=== PATIENT | female | born 1940 | race Hispanic/Latino ===

== ENCOUNTER 2018-07-29 12:37 | Inpatient (IN) | payer OTHER ==
--- OUTSIDE RECORDS SUMMARY | 2018-07-29 12:40 | XMS REPORT ---
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 Problem 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 Active classified elsewhere Problem Type 2 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 Problem Cervical stenosis of spine M48.02 Active Problem Cervical stenosis (uterine cervix) N88.2 Active Problem History of coronary artery stent Z95.5 Active placement Problem Mixed hyperlipidemia E78.2 Active Problem Other osteoporosis M81.8 Active Problem At risk for falling Z91.81 Active Problem Primary hypersomnia F51.11 Active Problem Atherosclerosis of [place] coronary I25.10 Active artery Problem Chronic kidney disease (CKD), stage N18.4 Active IV (severe) Problem H/O stroke without residual Z86.73 Active deficits Medications No Known Medications Results No Known Results Summary Purpose [facility] Submission
--- OUTSIDE RECORDS SUMMARY | 2018-07-29 12:40 | XMS REPORT ---
:1940 Author Organization eClinicalWorks Care Team Providers Name Role Phone Orlando John Provider Role Unavailable Allergies, Adverse Reactions, Alerts Substance Reaction Event Type Levaquin Info Not Available Drug Allergy Benadryl Info Not Available Drug Allergy ALL PAIN NARCOTICS Swelling of throat, hands Non Drug Allergy CONTRAST DYE Info Not Available Non Drug Allergy Problems Problem Type Condition Code Onset Dates Condition Status Assessment Cervical stenosis of spine M48.02 Active Assessment Other osteoporosis M81.8 Active Assessment History of coronary artery stent Z95.5 Active placement Assessment Atherosclerosis of [place] coronary I25.10 Active artery Assessment At risk for falling Z91.81 Active Problem Proteinuria, unspecified R80.9 Active Assessment Mixed hyperlipidemia E78.2 Active Problem H/O stroke without residual deficits Z86.73 Active Assessment Proteinuria, unspecified R80.9 Active Problem Chronic kidney disease (CKD), stage N18.4 Active IV (severe) Problem At risk for falling Z91.81 Active Problem Other osteoporosis M81.8 Active Problem jail current 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 Z79.4 Active Problem Type 2 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 Assessment jail current 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 Z79.4 Active Assessment Hypertensive heart disease without I11.9 Active heart failure Problem Cervical stenosis of spine M48.02 Active Assessment 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 classified I43 Active elsewhere Problem 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 classified I43 Active elsewhere Problem Atherosclerosis of [place] coronary I25.10 Active artery Problem Hypertensive heart disease without I11.9 Active heart failure Problem Chronic kidney disease, stage 4 N18.4 Active (severe) Assessment Type 2 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 Assessment Chronic kidney disease, stage 4 N18.4 Active (severe) Assessment Medicare annual wellness visit, Z00.00 Active initial Problem Cervical stenosis (uterine cervix) N88.2 Active Problem History of coronary artery stent Z95.5 Active placement Problem Mixed hyperlipidemia E78.2 Active Problem Primary hypersomnia F51.11 Active Medications Medication Code Code Instructions Start End Status Dosage System Date Date Metoprolol [facility] 29704205459 100 MG Orally Active 1 tablet Succinate ER Twice a day Tradjenta [facility] 74088767778 5 MG Orally Active 1 tablet Once a day Simvastatin [facility] 06307530864 40 MG Orally Active 1/2 tablet Once a day in the evening Furosemide [facility] 68937207030 40 MG Orally Active 1 tablet Once a day Clopidogrel [facility] 75789838239 75 MG Orally Active 1 tablet Bisulfate Once a day Tresiba FlexTouch [facility] 20856058128 200 UNIT/ML Active 10 units Subcutaneous daily Cranberry Extract [facility] [address] Active not defined Lactobacillus [facility] 0 Active not defined Norvasc [facility] 49116924573 10 MG Orally Active 1 tablet Once a day Results No Known Results Summary Purpose eClinicalWorks Submission
--- OUTSIDE RECORDS SUMMARY | 2018-07-29 12:40 | XMS REPORT ---
:1940 Author Organization eClinicalWorks Care Team Providers Name Role Phone Orlando John Provider Role Unavailable Allergies No Known Allergies Problems Problem Type Condition Code Onset Dates Condition Status Assessment Cervical stenosis of spine M48.02 Active Assessment Other osteoporosis M81.8 Active Assessment History of coronary artery stent Z95.5 Active placement Problem Proteinuria, unspecified R80.9 Active Assessment Atherosclerosis of [place] coronary I25.10 Active artery Problem H/O stroke without residual deficits Z86.73 Active Assessment At risk for falling Z91.81 Active Problem Chronic kidney disease (CKD), stage N18.4 Active IV (severe) Problem At risk for falling Z91.81 Active Problem Other osteoporosis M81.8 Active Problem half-way current 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 Z79.4 Active Problem Type 2 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 Assessment 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 classified I43 Active elsewhere Assessment Proteinuria, unspecified R80.9 Active Problem Cervical stenosis of spine M48.02 Active Assessment Mixed hyperlipidemia E78.2 Active Problem 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 classified I43 Active elsewhere Problem Atherosclerosis of [place] coronary I25.10 Active artery Problem Hypertensive heart disease without I11.9 Active heart failure Problem Chronic kidney disease, stage 4 N18.4 Active (severe) Assessment Chronic kidney disease, stage 4 N18.4 Active (severe) Assessment Type 2 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 Assessment Hypertensive heart disease without I11.9 Active heart failure Assessment 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 Problem Cervical stenosis (uterine cervix) N88.2 Active Problem History of coronary artery stent Z95.5 Active placement Problem Mixed hyperlipidemia E78.2 Active Problem Primary hypersomnia F51.11 Active Medications Medication Code Code Instructions Start End Status Dosage System Date Date Furosemide ND 37803694081 40 MG Orally Active 1 tablet Once a day Norvasc ND 10055189409 10 MG Orally Active 1 tablet Once a day Simvastatin ND 11413319269 40 MG Orally Active 1/2 tablet Once a day in the evening Metoprolol ND 52449371871 100 MG Orally Active 1 tablet Succinate ER Twice a day Cranberry Extract [facility] [address] Active not defined Tresiba FlexTouch [facility] 42944294516 200 UNIT/ML Active 10 units Subcutaneous daily Tradjenta [facility] 08687255137 5 MG Orally July 03, Active 1 tablet Once a day [address] [facility] 25495508264 75 MG Orally Active 1 tablet Bisulfate Once a day Lactobacillus [facility] 0 Active not defined Results No Known Results Summary Purpose eClinicalWorks Submission
--- OUTSIDE RECORDS SUMMARY | 2018-07-29 12:40 | XMS REPORT ---
:1940 [facility] Address [address] [place] [address] [address] [place] [address] Care Team Providers Name Role Phone Unavailable Unavailable Unavailable Payers Payer Name Policy Type Policy Number Effective Date Expiration Date Problems This patient has no known problems. Allergies, Adverse Reactions, Alerts Allergy Allergy Status Severity Reaction(s) Onset Inactive Treating Comments Name Type Date Date Clinician iodine DA Active SV 2018-07 00:00:0 0 morphine DA Active SV 2018-07 00:00:0 0 Medications This patient has no known medications. Results Test Description Test Time Test Comments Text Results Atomic Results Result Comments TROPONIN-I 2018-07-28 19:45:00 Test Item Value Reference Range Comments TROPONIN-I (test 0.18 ng/mL 0.00-0.05 RESULTS CALLED TO SOLITARIO SCHUMACHER AT 4335 code=TROPI) 07/28/18.Saji Malloy VALUE READ BACK BY NURSE AND VERIFIED BY TECH? Y<0.05 Normal0.06 - 0.39 Consistent with circulating Troponin with possible Myocardial injury.>0.40 Consistent with Myocardial injury extensive enough to conform with AMI as defined by WHO. COMPREHENSIVE METABOLIC [id number] 16:08:00 Test Item Value Reference Range Comments SODIUM (test code=NA) 139 mmol/L 136-145 POTASSIUM (test code=K) 4.3 mmol/L 3.5-5.1 CHLORIDE (test code=CL) 106 mmol/L 98-107 CARBON DIOXIDE (test 28 mmol/L 21-32 code=CO2) GLUCOSE (test code=GLU) 255 mg/dL 65-99 BLOOD UREA NITROGEN (test 47 mg/dL 7-18 code=BUN) GLOMERULAR FILTRATION RATE 20 Reporting units: (test code=GFR) ml/min/1.73m\S\2 (Modified MDRD Formula)If age < 18 years, GFR is not applicable. KD/DOQI Clinical Practice Guidelines: Stage 1: Kidney damage w/normal or increased GFR >90Stage 2: Kidney damage w/mild decrease in GFR 60 - 89Stage 3: Moderate decrease in GFR 30 - 59Stage 4: Severe decrease in GFR 15 - 29Stage 5: Kidney failure < 15 (or dialysis) CREATININE (test code=CREAT) 2.5 mg/dL 0.6-1.0 TOTAL PROTEIN (test 7.6 g/dL 6.4-8.2 code=PROT) ALBUMIN (test code=ALB) 3.9 g/dL 3.4-5.0 GLOBULIN (test code=GLOB) 3.7 gm/dL 2.3-3.5 ALBUMIN/GLOBULIN RATIO (test 1.1 1.5-2.2 code=A/G) CALCIUM (test code=CA) 9.7 mg/dL 7.8-10.9 BILIRUBIN TOTAL (test 0.3 mg/dL 0.0-1.1 code=BILT) SGOT/AST (test code=AST) 19 U/L 15-37 Reporting units: International Units/L SGPT/ALT (test code=ALT) 18 U/L 10-30 Reporting units: International Units/L ALKALINE PHOSPHATASE TOTAL 119 U/L 45-117 (test code=ALKP) - XR CHEST 1 [id number] 15:43:00 FAX: Rhett oJ [phone] Camps: ER St: REG Name: [facility]- Emergency Services : 1940 Age/S: 78/F [address] Unit #: [id number] Loc: VR.DIMAS [place], [place] [address] Phys: Rhett Sams MD Acct: [id number] Dis Date: Status: REG ER PHONE #: [phone] Exam Date: 07/28/2018 1527 FAX #: [phone] Reason: CP EXAMS: CPT CODE: [id number] XR CHEST 1 V 46636 Examination: Chest 1 view Location code: S17 Comparison: None Discussion: Clinical history is remarkable for chest tightness. Cardiac silhouette is slightly enlarged, atherosclerotic change present. There are coarsened interstitial changes present bilaterally, mild bilateral parenchymal basilar scarring noted. Impression: 1. Coarsened interstitial changes with likely bilateral basilar parenchymal scarring. Electronically Signed by TONIA BUNN M.D. on 09/2018 at 9867 Reported and signed by: YUAN BUNN M.D. CC: Rhett Sams MDTechnologist: HESHAM FONG RT,(R) ARRT Transcribed Date/Time/By: 07/28/2018 (7496) : [email or web address] Orig Print D/T: S: 07/28/2018 (6598) Automated exposure control, iterative reconstruction technique, and/ oradjustment of mA and/or kV according to patient's size was utilizedfor optimum radiation dose reduction. PAGE 1 Signed ReportTROPONIN I [id number] 15:37:00 Test Item Value Reference Range Comments TROPONIN I RAPID (test 0.03 NG/ML 0.00-0.08 0.00 - 0.08 Normal0.09 - code=TROPIRAP) 0.40 Indeterminate for AMI 0.41 and above Compatible with AMI CHEMISTRY 8 [id number] 15:36:00 Test Item Value Reference Range Comments IONIZED CALCIUM (test code=CAIABG) 1.19 mmol/L 1.13-1.32 ISTAT-TCO2 VENOUS (test code=TCO2VP) 26 MMOL/L 24-30 ISTAT-HEMOGLOBIN (test code=HBP) 13.9 G/DL 12.0-16.0 ISTAT-HEMATOCRIT (test code=HCTP) 41 % 44.0-56.0 ISTAT-SODIUM (test code=NAP) 140 MMOL/L 136-145 ISTAT-POTASSIUM (test code=KP) 4.4 MMOL/L 3.5-5.1 ISTAT-CHLORIDE (test code=CLP) 102 MMOL/L 98-107 ISTAT GLUCOSE (test code=GLUP) 260 MG/DL 65-99 ISTAT-BUN (test code=BUNP) 47 MG/DL 7-18 BEDSIDE CREATININE (test code=CREATBED) 2.6 MG/DL 0.6-1.0 CBC W/AUTO [id number] 15:34:00 Test Item Value Reference Range Comments WHITE BLOOD CELL (test code=WBC) 8.6 K/mm3 4.8-10.8 RED BLOOD CELL (test code=RBC) 4.37 M/mm3 4.2-5.4 HEMOGLOBIN (test code=HGB) 13.5 gm/DL 12.0-16.0 HEMATOCRIT (test code=HCT) 39.6 % 34.7-43.3 MEAN CELL VOLUME (test code=MCV) 90.6 fL 81-99 MEAN CELL HGB (test code=MCH) 30.9 pg 27-31 MEAN CELL HGB CONCETRATION (test code=MCHC) 34.1 gm/dL 33-37 RED CELL DISTRIBUTION WIDTH (test code=RDW) 12.7 % 11.5-14.5 PLATELET COUNT (test code=PLT) 217 X10(3) 130-400 MEAN PLATELET VOLUME (test code=MPV) 9.9 fL 9.4-12.4 NEUTROPHIL % (test code=NT%) 71.3 % 51.5-79.7 IMMATURE GRANULOCYTE % (test code=IG%) 0.500 % 0.108-0.322 LYMPHOCYTE % (test code=LY%) 18.1 % 14-40 MONOCYTE % (test code=MO%) 7.2 % 4.0-10.2 EOSINOPHIL % (test code=EO%) 2.3 % 0-4.1 BASOPHIL % (test code=BA%) 0.6 % 0.1-0.7 NUCLEATED RBC % (test code=NRBC%) 0 % 0-0 NEUTROPHIL # (test code=NT#) 6.1 K/mm3 2.5-8.6 IMMATURE GRANULOCYTE # (test code=IG#) 0.040 K/mm3 0.0052-0.0224 LYMPHOCYTE # (test code=LY#) 1.6 K/mm3 1.1-3.6 MONOCYTE # (test code=MO#) 0.6 K/mm3 0.3-0.9 EOSINOPHIL # (test code=EO#) 0.20 # 0.0-0.4 BASOPHIL # (test code=BA#) 0.05 K/mm3 0.0-0.2 NUCLEATED RBC # (test code=NRBC#) 0.00 K/mm3 0.00-0.20
--- OUTSIDE RECORDS SUMMARY | 2018-07-29 12:40 | XMS REPORT ---
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 Z79.4 Active Problem Type 2 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 Problem Cervical stenosis of spine M48.02 Active Problem 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 classified I43 Active elsewhere Problem Atherosclerosis of [place] coronary I25.10 Active artery Problem Hypertensive heart disease without I11.9 Active heart failure Problem Chronic kidney disease, stage 4 N18.4 Active (severe) Problem Cervical stenosis (uterine cervix) N88.2 Active Problem History of coronary artery stent Z95.5 Active placement Problem Mixed hyperlipidemia E78.2 Active Problem Proteinuria, unspecified R80.9 Active Problem Primary hypersomnia F51.11 Active Problem H/O stroke without residual deficits Z86.73 Active Medications No Known Medications Results No Known Results Summary Purpose eClinicalWorks Submission
--- OUTSIDE RECORDS SUMMARY | 2018-07-29 12:41 | XMS REPORT ---
:1940 Author Organization eClinicalWorks Care Team Providers Name Role Phone PerryMuh Provider Role Unavailable Allergies, Adverse Reactions, Alerts Substance Reaction Event Type Levaquin Info Not Available Drug Allergy Benadryl Info Not Available Drug Allergy CONTRAST DYE Info Not Available Non Drug Allergy ALL PAIN NARCOTICS Swelling of throat, hands Non Drug Allergy Problems Problem Type Condition Code Onset Dates Condition Status Assessment History of coronary artery stent Z95.5 Active placement Assessment Other osteoporosis M81.8 Active Assessment At risk for falling Z91.81 Active Assessment Atherosclerosis of [place] coronary I25.10 Active artery Assessment Mixed hyperlipidemia E78.2 Active Assessment Proteinuria, unspecified R80.9 Active Assessment 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 Active classified elsewhere Assessment Hypertensive heart disease without I11.9 Active heart failure Assessment 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 Problem Atherosclerosis of [place] coronary I25.10 Active artery Assessment Chronic kidney disease, stage 4 N18.4 Active (severe) Problem 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 Active classified elsewhere Assessment Medicare annual wellness visit, Z00.00 Active subsequent Problem longterm current 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 Z79.4 Active Problem Type 2 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 Problem Cervical stenosis of spine M48.02 Active Problem Acute pain of left knee M25.562 Active Problem Pain, joint, knee, right M25.561 Active Problem Mixed hyperlipidemia E78.2 Active Problem Adult BMI 36.0-36.9 kg/sq m Z68.36 Active Assessment Type 2 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 Problem Hypertensive heart disease without I11.9 Active heart failure Problem Chronic kidney disease, stage 4 N18.4 Active (severe) Problem Primary osteoarthritis of left knee M17.12 Active Problem 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 knee Assessment Adult BMI 36.0-36.9 kg/sq m Z68.36 Active Problem H/O stroke without residual Z86.73 Active deficits Assessment Cervical stenosis of spine M48.02 Active Problem Cervical stenosis (uterine cervix) N88.2 Active Assessment Encounter for screening mammogram Z12.31 Active for breast cancer Problem Proteinuria, unspecified R80.9 Active Assessment H/O stroke without residual Z86.73 Active deficits Problem Primary hypersomnia F51.11 Active Problem Other osteoporosis M81.8 Active Problem At risk for falling Z91.81 Active Problem History of coronary artery stent Z95.5 Active placement Problem Chronic kidney disease (CKD), stage N18.4 Active IV (severe) Medications Medication Code Code Instructions Start End Status Dosage System Date [facility] MG Orally Active 1 tablet Once a day Metoprolol [facility] 14530946822 100 MG Orally Active 1 tablet Succinate ER Twice a day Tradjenta [facility] 68198725043 5 MG Orally Active 1 tablet Once a day Simvastatin [facility] 18671640634 40 MG Orally Active 1/2 tablet in Once a day the evening Furosemide [facility] 61093024299 40 MG Orally Active 1 tablet Once a day Simvastatin [facility] 58059248861 40 MG Orally Active 1/2 tablet in Once a day the evening Clopidogrel [facility] 85540875863 75 MG Orally Active 1 tablet Bisulfate Once a day Cranberry [facility] 13018-[address]36 Active not defined Extract Lactobacillus [facility] 0 Active not defined Tradjenta [facility] 88143453076 5 MG Orally Active 1 tablet Once a day Tresiba [facility] 61079512854 200 UNIT/ML Active INJECT 10 UNITS FlexTouch SUBCUTANEOUSLY DAILY Tresiba [facility] 22589250281 200 UNIT/ML Active 10 units FlexTouch Subcutaneous daily Results No Known Results Summary Purpose eClinicalWorks Submission
--- OUTSIDE RECORDS SUMMARY | 2018-07-29 12:41 | XMS REPORT ---
:1940 Author Organization eClinicalWorks Care Team Providers Name Role Phone Orlando John Provider Role Unavailable Allergies No Known Allergies Problems Problem Type Condition Code Onset Dates Condition Status Problem 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 Active classified elsewhere Problem Cervical stenosis of spine M48.02 Active Problem prison current 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 Z79.4 Active Problem Pain, joint, knee, right M25.561 Active Problem Primary osteoarthritis of left knee M17.12 Active Problem Acute pain of left knee M25.562 Active Problem Chronic kidney disease, stage 4 N18.4 Active (severe) Problem Type 2 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 Problem 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 knee Problem Hypertensive heart disease without I11.9 Active heart failure Problem Primary hypersomnia F51.11 Active Problem H/O stroke without residual Z86.73 Active deficits Problem Mixed hyperlipidemia E78.2 Active Problem Proteinuria, unspecified R80.9 Active Problem Chronic kidney disease (CKD), stage N18.4 Active IV (severe) Problem Other osteoporosis M81.8 Active Problem Cervical stenosis (uterine cervix) N88.2 Active Problem At risk for falling Z91.81 Active Problem History of coronary artery stent Z95.5 Active placement Problem Atherosclerosis of [place] coronary I25.10 Active artery Medications No Known Medications Results No Known Results Summary Purpose eClinicalWorks Submission
--- OUTSIDE RECORDS SUMMARY | 2018-07-29 12:41 | XMS REPORT ---
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 Problem Type 2 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 Problem Cervical stenosis of spine M48.02 Active Problem Acute pain of left knee M25.562 Active Problem Mixed hyperlipidemia E78.2 Active Problem Pain, joint, knee, right M25.561 Active Assessment Urinary tract infection, site not N39.0 Active specified Problem Adult BMI 36.0-36.9 kg/sq m Z68.36 Active Problem Hypertensive heart disease without I11.9 Active heart failure Problem Chronic kidney disease, stage 4 N18.4 Active (severe) Problem Primary osteoarthritis of left knee M17.12 Active Problem 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 knee Problem H/O stroke without residual Z86.73 Active deficits Problem Cervical stenosis (uterine cervix) N88.2 Active Problem Proteinuria, unspecified R80.9 Active Problem Primary hypersomnia F51.11 Active Problem Other osteoporosis M81.8 Active Problem At risk for falling Z91.81 Active Problem History of coronary artery stent Z95.5 Active placement Problem Atherosclerosis of [place] coronary I25.10 Active artery Problem Chronic kidney disease (CKD), stage N18.4 Active IV (severe) Problem 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 Active classified elsewhere Medications Medication Code Code Instructions Start End Status Dosage System Date Date Lactobacillus NDC 0 Active not defined Furosemide ND 00144112402 40 MG Orally Active 1 tablet Once a day Bactrim DS ND 49391298222 800-160 MG Feb 21Feb Active 1 tablet Orally Twice a 2019 2018 Simvastatin ND 18172698092 40 MG Orally Active 1/2 tablet [place] [address] Active not defined Extract Norvasc [facility] 05226037841 10 MG Orally Active 1 tablet Once a day Tresiba [facility] 36185532935 200 UNIT/ML Active INJECT 10 UNITS FlexTouch SUBCUTANEOUSLY DAILY Tradjenta [facility] 19525491657 5 MG Orally Active 1 tablet Once a day Clopidogrel [facility] 25634898838 75 MG Orally Active 1 tablet Bisulfate Once a day Metoprolol [facility] 80650188278 100 MG Orally Active 1 tablet Succinate ER Twice a day Results No Known Results Summary Purpose eClinicalWorks Submission
--- OUTSIDE RECORDS SUMMARY | 2018-07-29 12:41 | XMS REPORT ---
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 Problem Pain, joint, knee, right M25.561 Active Problem Primary osteoarthritis of left knee M17.12 Active Assessment Pain, joint, knee, right M25.561 Active Assessment 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 knee Problem Acute pain of left knee M25.562 [...] IV (severe) Problem Other osteoporosis M81.8 Active Assessment Acute pain of left knee M25.562 Active Problem Cervical stenosis (uterine cervix) N88.2 Active Problem At risk for falling Z91.81 Active Assessment Primary osteoarthritis of left knee M17.12 Active Problem History of coronary artery stent Z95.5 Active placement Problem Atherosclerosis of [place] coronary I25.10 Active artery Medications Medication Code Code Instructions Start End Status Dosage System Date Date Furosemide [facility] 66541012401 40 MG Orally Active 1 tablet Once a day Tradjenta [facility] 49266562994 5 MG Orally Active 1 tablet Once a day Simvastatin ND 03623028665 40 MG Orally Active 1/2 tablet in Once a day the evening Metoprolol [facility] 37655908789 100 MG Orally Active 1 tablet Succinate ER Twice a day Norvasc [facility] 80974954132 10 MG Orally Active 1 tablet Once a day Cranberry [facility] 99916-07750 Active not defined Extract Tresiba [facility] 97730350021 200 UNIT/ML Active INJECT 10 UNITS FlexTouch SUBCUTANEOUSLY DAILY Lactobacillus [facility] 0 Active not defined Clopidogrel [facility] 95181157845 75 MG Orally Active 1 tablet Bisulfate Once a day Results No Known Results Summary Purpose [employer]ClinicalWorks Submission
--- OUTSIDE RECORDS SUMMARY | 2018-07-29 12:41 | XMS REPORT ---
:1940 Author Organization eClinicalWorks Care Team Providers Name Role Phone Orlando John Provider Role Unavailable Allergies No Known Allergies Problems Problem Type Condition Code Onset Dates Condition Status Problem 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 Active classified elsewhere Problem Cervical stenosis of spine M48.02 Active Problem detention current 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 Z79.4 Active Problem [...] stent Z95.5 Active placement Problem Atherosclerosis of [place] coronary I25.10 Active artery Medications No Known Medications Results No Known Results Summary Purpose [employer]ClinicalWorks Submission
--- OUTSIDE RECORDS SUMMARY | 2018-07-29 12:41 | XMS REPORT ---
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
--- OUTSIDE RECORDS SUMMARY | 2018-07-29 12:41 | XMS REPORT ---
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
--- OUTSIDE RECORDS SUMMARY | 2018-07-29 12:41 | XMS REPORT ---
:1940 Author Organization eClinicalWorks Care Team Providers Name Role Phone Mahoney Dell Provider Role Unavailable Allergies, Adverse Reactions, Alerts [...] Assessment Pain, joint, knee, right M25.561 Active Problem 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 knee Assessment 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 knee Assessment Primary osteoarthritis of left knee M17.12 Active Problem Pain, joint, knee, right M25.561 Active Problem long term care pharmacist current 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 Z79.4 Active Problem 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 Active Problem Atherosclerosis of [place] coronary I25.10 Active artery Problem Chronic kidney disease (CKD), stage N18.4 Active IV (severe) Problem H/O stroke without residual Z86.73 Active deficits Medications Medication Code Code Instructions Start End Status Dosage System Date Date Simvastatin [facility] 32699532352 40 MG Orally Active 1/2 tablet Once a day in the evening Tradjenta [facility] 66303653389 5 MG Orally Active 1 tablet Once a day Metoprolol [facility] 56688768502 100 MG Orally Active 1 tablet Succinate ER Twice a day Cranberry Extract [facility] [address]55-54[address] Active not defined Tresiba FlexTouch [facility] 62656681642 200 UNIT/ML Active 10 units Subcutaneous daily Norvasc [facility] 07456976835 10 MG Orally Active 1 tablet Once a day Clopidogrel [facility] 79627208002 75 MG Orally Active 1 tablet Bisulfate Once a day Furosemide [facility] 94554127069 40 MG Orally Active 1 tablet Once a day Lactobacillus [facility] 0 Active not defined Results Name Result Date Reference Range Unit Abnormality Flag X-RAY EXAM KNEE STANDING VIEW (85954) Summary Purpose eClinicalWorks Submission
--- OUTSIDE RECORDS SUMMARY | 2018-07-29 12:41 | XMS REPORT ---
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.4 Active Problem [...] stent Z95.5 Active placement Problem Atherosclerosis of [place] coronary I25.10 Active artery Medications Medication Code Code Instructions Start End Status Dosage System Date Date Metoprolol ND 38744318048 100 MG Orally Active 1 tablet Succinate ER Twice a day Simvastatin ND 58328431666 40 MG Orally Active 1/2 tablet in Once a day the evening Lactobacillus [facility] 0 Active not defined Furosemide ND 04461533998 40 MG Orally Active 1 tablet Once a day Norvasc [facility] 96180252401 10 MG Orally Active 1 tablet Once a day Tresiba [facility] 23294991687 200 UNIT/ML Active INJECT 10 UNITS FlexTouch SUBCUTANEOUSLY DAILY Tradjenta [facility] 76291180570 5 MG Orally Active 1 tablet Once a day Cranberry [facility] 16334-80290 Active not defined Extract Clopidogrel [facility] 83716622941 75 MG Orally Active 1 tablet Bisulfate Once a day Results No Known Results Summary Purpose eClinicalWorks Submission
--- OUTSIDE RECORDS SUMMARY | 2018-07-29 12:42 | XMS REPORT ---
:1940 Author Organization eClinicalWorks Care Team Providers Name Role Phone Orlando John Provider Role Unavailable Allergies No Known Allergies Problems Problem Type Condition Code Onset Dates Condition Status Problem FPC current 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 Z79.4 Active Problem Type 2 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 Problem Cervical stenosis of spine M48.02 Active Problem Acute pain of left knee M25.562 Active Problem Mixed hyperlipidemia E78.2 Active Problem Pain, joint, knee, right M25.561 Active Problem Adult BMI 36.0-36.9 kg/sq m [...] stent Z95.5 Active placement Problem Atherosclerosis of [place] coronary I25.10 Active artery Problem Chronic kidney disease (CKD), stage N18.4 Active IV (severe) Problem 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 Active classified elsewhere Medications No Known Medications Results No Known Results Summary Purpose [employer]ClinicalWorks Submission
--- OUTSIDE RECORDS SUMMARY | 2018-07-29 12:42 | XMS REPORT ---
:1940 Author Organization eClinicalWorks Care Team Providers Name Role Phone Orlando John Provider Role Unavailable Allergies No Known Allergies Problems Problem Type Condition Code Onset Dates Condition Status Problem residential current 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 Z79.4 Active Problem [...] stent Z95.5 Active placement Problem Atherosclerosis of [place] coronary I25.10 Active artery Problem Chronic kidney disease (CKD), stage N18.4 Active IV (severe) Problem 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 Active classified elsewhere Medications No Known Medications Results No Known Results Summary Purpose [employer]ClinicalWorks Submission
--- OUTSIDE RECORDS SUMMARY | 2018-07-29 12:42 | XMS REPORT ---
:1940 Author Organization eClinicalWorks Care Team Providers Name Role Phone PerryJohn Provider Role Unavailable Allergies, Adverse Reactions, Alerts Substance Reaction Event Type Levaquin Info Not Available Drug Allergy Benadryl Info Not Available Drug Allergy ALL PAIN NARCOTICS Swelling of throat, hands Non Drug Allergy CONTRAST DYE Info Not Available Non Drug Allergy Problems Problem Type Condition Code Onset Dates Condition Status Assessment Other osteoporosis M81.8 Active Assessment Cervical stenosis of spine M48.02 Active Assessment Atherosclerosis of [place] coronary I25.10 Active artery Assessment History of coronary artery stent Z95.5 Active placement Assessment At risk for falling Z91.81 Active Assessment Mixed hyperlipidemia E78.2 Active Assessment Proteinuria, unspecified R80.9 Active Assessment 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 Active classified elsewhere Assessment Hypertensive heart disease without I11.9 Active heart failure Problem Atherosclerosis of [place] coronary I25.10 Active artery Assessment long term care social worker current 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 Z79.4 Active Problem 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 Active classified elsewhere Assessment Chronic kidney disease, stage 4 N18.4 Active (severe) Problem detention current 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 Z79.4 [...] osteoarthritis of right M17.11 Active knee Assessment H/O stroke without residual Z86.73 Active deficits Problem H/O stroke without residual Z86.73 Active deficits Assessment Adult BMI 36.0-36.9 kg/sq m Z68.36 Active Problem Cervical stenosis (uterine cervix) N88.2 Active Problem Proteinuria, unspecified R80.9 Active Problem Primary hypersomnia F51.11 Active Problem Other osteoporosis M81.8 Active Problem At risk for falling Z91.81 Active Problem History of coronary artery stent Z95.5 Active placement Problem Chronic kidney disease (CKD), stage N18.4 Active IV (severe) Medications Medication Code Code Instructions Start End Status Dosage System Date Date Tradjenta [facility] 74816824054 5 MG Orally Active 1 tablet Once a day Furosemide [facility] 58338619682 40 MG Orally Active 1 tablet Once a day Norvasc [facility] 86256074041 10 MG Orally Active 1 tablet Once a day Metoprolol [facility] 58383276116 100 MG Orally Active 1 tablet Succinate ER Twice a day Tresiba [facility] 66648347875 200 UNIT/ML Active 10 units FlexTouch Subcutaneous daily Tresiba [facility] 45698269705 200 UNIT/ML Active INJECT 10 UNITS FlexTouch SUBCUTANEOUSLY DAILY Simvastatin [facility] 83712151995 40 MG Orally Active 1/2 tablet in Once a day the evening Simvastatin [facility] 66102455910 40 MG Orally Active 1/2 tablet in Once a day the evening Tradjenta [facility] 04267652140 5 MG Orally Active 1 tablet Once a day Clopidogrel [facility] 17799098035 75 MG Orally Active 1 tablet Bisulfate Once a day Lactobacillus [facility] 0 Active not defined Cranberry [facility] [address]46[address]41 Active not defined Extract Results No Known Results Summary Purpose eClinicalWorks Submission
[2018-07-29] MEDS ORDERED: ASPIRIN 81 MG CHEWABLE TABLET ONE (13:37)
[2018-07-29 13:50] LABS: Urine Blood NEGATIVE (NEG); Urine Glucose 1+ (NEG); Urine Protein 1+ (NEG); Urine pH 5.5 (5.0-7.0)
[2018-07-29 13:55] LABS: Absolute Lymphocytes (CBC) 1.6 K/uL (0.7-4.9); Absolute Monocytes 0.7 K/uL (0.1-1.3); Absolute Neutrophil 4.5 K/uL (1.8-8.0); Basophils % 0.9 % (0-1.3); Eosinophils % 2.7 % (0-4.4); Hematocrit 41.5 % (36.0-45.0); Lymphocytes % 22.8 % (15.3-44.8); MPV 8.7 fL (7.6-11.3); Monocytes % 9.5 % (3.3-12.3); Protime INR 0.96; RBC Red Blood Cell Count 4.51 M/uL (3.86-4.86)
--- NOTE | 2018-07-29 13:57 | RAD REPORT ---
EXAM DESCRIPTION: RAD - Chest Single View - 07/29/2018 1:36 pm CLINICAL HISTORY: Chest pain COMPARISON: January 2017 TECHNIQUE: AP portable chest image was obtained 1330 hours . FINDINGS: No focal mass, consolidation or failure finding. Chronic interstitial pattern is similar t o comparison. Heart and vasculature are normal. No measurable pleural effusion and no pneumothorax. N o acute bony abnormality seen. No acute aortic findings suspected. IMPRESSION: No acute cardiopulmonary process.
[2018-07-29 14:30] LABS: Albumin 3.6 g/dL (3.4-5.0); Bilirubin Direct 0.1 mg/dL (0-0.2); Bilirubin Total 0.4 mg/dL (0.2-1.0); Magnesium 2.4 mg/dL (1.8-2.4); Potassium 4.3 mmol/L (3.5-5.1); Protein, Total 6.9 g/dL (6.4-8.2)
[2018-07-29 14:32] LABS: Troponin (Emerg Dept Use Only) 0.91 ng/mL (0.0-0.045)
--- NOTE | 2018-07-29 14:41 | RAD REPORT ---
EXAM DESCRIPTION: US - Extremity Venous Uni Ltd - 07/29/2018 2:20 pm CLINICAL HISTORY: Left leg pain and swelling COMPARISON: None. TECHNIQUE: Real-time sonographic evaluation of the left lower extremity deep venous system was perfo rmed. FINDINGS: Normal compressibility, flow augmentation, phasic flow and spontaneous flow are identified in the left lower extremity common femoral, superficial femoral, popliteal and posterior tibial vein s. No intraluminal filling defects seen. A 3 centimeter x 1 centimeter popliteal fossa cyst is present. IMPRESSION: No DVT in the left lower extremity.
[2018-07-29] MEDS ORDERED: CLOPIDOGREL 75 MG TABLET ONE (15:31)
--- NOTE | 2018-07-29 15:34 | ER ---
Nurse's Notes [facility] Name: Suzan Gonzalez Age: 78 yrs Sex: Female : 1940 Arrival Date: 07/29/2018 Time: 12:42 Bed 20 Private MD: John Perry Diagnosis: Angina pectoris, unspecified;Chronic kidney disease (CKD) Presentation: 07/29 12:54 Presenting complaint: Child states: daughter reports that they were out of town for a ss and patient began to have intermittent chest pain. 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 Transition of care: patient was not received from another setting of care. Onset of symptoms was July 27, 2018. Risk Assessment: Do you want to hurt yourself or someone else? Patient reports no desire to harm self or others. Initial Sepsis Screen: Does the patient meet any 2 criteria? No. Patient's initial sepsis screen is negative. Does the patient have a suspected source of infection? No. Patient's initial sepsis screen is negative. Care prior to arrival: None. 12:54 Method Of Arrival: Ambulatory ss 12:54 Acuity: SERGIO 3 ss Historical: - Allergies: 12:58 "every pain narcotic"; ss 12:58 Bactrim; ss 12:58 Benadryl; ss 12:58 Iodine; ss 12:58 Levaquin; ss 12:58 Morphine; ss - PMHx: 12:58 angio; CHF; Diabetes - IDDM; Hypertension; Osteoporosis; POOR CIRCULATION; ss - PSHx: 12:58 neck surgery; Cholecystectomy; Hysterectomy; Heart stents; ss - Immunization history:: Adult Immunizations up to date. - Social history:: Smoking status: Patient/guardian denies using tobacco. - Ebola Screening: : Patient denies exposure to infectious person Patient denies travel to an Ebola-affected area in the 21 days before illness onset. Screenin:15 Abuse screen: Denies threats or abuse. Nutritional screening: No deficits noted. em Tuberculosis screening: No symptoms or risk factors identified. Fall Risk None identified. Assessment: 13:20 General: Appears in no apparent distress. comfortable, Behavior is calm, cooperative, em Denies fever. Pain: Complains of pain in chest Pain does not radiate. Quality of pain is described as pressure, sharp, Pain began 1 day ago. Neuro: Level of Consciousness is awake, alert, obeys commands, Oriented to person, place, time, situation. Cardiovascular: Reports chest pain, nausea, shortness of breath, Capillary refill < 3 seconds Patient's skin is warm and dry. Rhythm is sinus rhythm. Respiratory: Airway is patent Respiratory effort is even, unlabored, Respiratory pattern is regular, symmetrical, Breath sounds are clear bilaterally. GI: Patient currently denies nausea, vomiting. Derm: Skin is intact, is healthy with good turgor, Skin is pink, warm \\T\\ dry. Musculoskeletal: Capillary refill < 3 seconds, Range of motion: intact in all extremities. 14:38 Reassessment: Patient appears in no apparent distress at this time. Patient and/or em family updated on plan of care and expected duration. Pain level reassessed. Patient is alert, oriented x 3, equal unlabored respirations, skin warm/dry/pink. provider at bedside. Vital Signs: 12:58 Resp 17; Height 5 ft. 0 in. (152.40 cm); ss 13:17 BP 146 / 56; Pulse 66; Resp 12; Temp 98.4(O); Pulse Ox 99% on R/A; em 14:41 BP 153 / 63; Pulse 61; Resp 15; Pulse Ox 96% on R/A; Pain 0/10; em ED Course: 12:42 Patient arrived in ED. mr 12:42 John Perry DO is Private Physician. mr 12:57 Triage completed. ss 12:58 Arm band placed on right wrist. ss 12:59 Rob Broderick LVN is Primary Nurse. em 13:01 Norberto Macedo PA is PHCP. cp 13:01 Hipolito Phan MD is Attending Physician. cp 13:10 Placed in gown. Bed in low position. Call light in reach. Side rails up X 1. Side rails jp3 up X2. Warm blanket given. Pillow given. Verbal reassurance given. 13:10 court recording monitor on. Pulse ox on. NIBP on. jp3 13:10 Urine collected: clean catch specimen, clear, jonas colored. Patient maintains SpO2 jp3 saturation greater than 95% on room air. 13:15 EKG done, by ED staff, reviewed by Norberto SAHU. jp3 13:20 Initial lab(s) drawn, by me, sent to lab. Inserted saline lock: 20 gauge in right jp3 antecubital area, using aseptic technique. Blood collected. 13:25 Basic Metabolic Panel Sent. jp3 13:25 CBC with Diff Sent. jp3 13:25 LFT's Sent. jp3 13:25 Magnesium Sent. jp3 13:25 NT PRO-BNP Sent. jp3 13:25 PT-INR Sent. jp3 13:25 Troponin (emerg Dept Use Only) Sent. jp3 13:38 XRAY Chest (1 view) In Process Unspecified. EDMS 14:19 Ultrasound completed. Patient tolerated well. sg3 14:21 US Extremity Venous Unilateral Ltd In Process Unspecified. EDMS 15:33 Josie Perry MD is Hospitalizing Provider. cp 16:26 No provider procedures requiring assistance completed. Patient admitted, IV remains in em place. Administered Medications: 13:26 Drug: Aspirin Chewable Tablet 324 mg Route: PO; em 14:50 Follow up: Response: No adverse reaction em 14:25 Drug: PlaVIX 300 mg Route: PO; em 16:31 Follow up: Response: No adverse reaction em Outcome: 15:34 Decision to Hospitalize by Provider. cp 16:26 Admitted to Tele accompanied by tech, family with patient, via stretcher, room 430, em with chart, Report called to SOLITARIO Garber 16:26 Condition: stable 16:26 Instructed on the need for admit, Demonstrated understanding of instructions. 16:31 Patient left the ED. em Signatures: Dispatcher [employer] EDVT Eileen Mayoz, Rob, MAGNAFLUX OPERATOR MAGNAFLUX OPERATOR em Hodan Segovia, Norberto Roman RN, PA PA cp Beatrice Villeda sg3 Rambo Lopez jp3
--- NOTE | 2018-07-29 15:34 | EDPHYS ---
Physician Documentation [facility] Name: Suzan Gonzalez Age: 78 yrs Sex: Female : 1940 Arrival Date: 07/29/2018 Time: 12:42 Bed 20 Private MD: John Perry ED Physician Hipolito Phan HPI: 07/29 13:10 This 78 yrs old Female presents to ER via Ambulatory with complaints of Chest cp Pain. 13:10 The patient or guardian reports chest pain that is located primarily in the anterior cp chest wall. 13:10 Onset: 2 day(s) ago. The pain radiates to left neck. Associated signs and symptoms: cp Pertinent positives: lower extremity pain, recent travel, Pertinent negatives: abdominal pain, cough, lower extremity swelling, shortness of breath, syncope. Duration: The patient or guardian reports multiple episodes, that are intermittent, with no pattern. Severity of pain: in the emergency department the pain has resolved and did so earlier today. Patient reports she was out of town yesterday and was seen at [facility] after complaining of chest pain. Daughter reports patient had elevated troponin level of 0.8 and was told patient needed cardiac cath. Patient left AM and returned home to [place]. 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 Historical: - Allergies: 12:58 "every pain narcotic"; ss 12:58 Bactrim; ss 12:58 Benadryl; ss 12:58 Iodine; ss 12:58 Levaquin; ss 12:58 Morphine; ss - PMHx: 12:58 angio; CHF; Diabetes - IDDM; Hypertension; Osteoporosis; POOR CIRCULATION; ss - PSHx: 12:58 neck surgery; Cholecystectomy; Hysterectomy; Heart stents; ss - Immunization history:: Adult Immunizations up to date. - Social history:: Smoking status: Patient/guardian denies using tobacco. - Ebola Screening: : Patient denies exposure to infectious person Patient denies travel to an Ebola-affected area in the 21 days before illness onset. ROS: 13:10 Constitutional: Negative for body aches, chills, fever, poor PO intake. cp 13:10 Eyes: Negative for injury, pain, redness, and discharge. cp 13:10 ENT: Negative for drainage from ear(s), ear pain, sore throat, difficulty swallowing, difficulty handling secretions. 13:10 Neck: Negative for pain with movement, pain at rest, stiffness. 13:10 Cardiovascular: Positive for chest pain, Negative for edema, palpitations. 13:10 Respiratory: Negative for cough, shortness of breath, wheezing. 13:10 Abdomen/GI: Negative for abdominal pain, nausea, vomiting, and diarrhea, black/tarry stool, rectal bleeding. 13:10 Back: Negative for pain at rest, pain with movement. 13:10 MS/extremity: Negative for injury or acute deformity, decreased range of motion. 13:10 Skin: Negative for cellulitis, rash. 13:10 Neuro: Negative for altered mental status, headache, numbness, syncope, weakness. 13:10 All other systems are negative. Exam: 13:10 ECG was reviewed by the Attending Physician. cp 13:18 Constitutional: The patient appears in no acute distress, alert, awake, comfortable, cp non-diaphoretic, non-toxic, well developed, well nourished. 13:18 Head/Face: Normocephalic, atraumatic. Eyes: Pupils equal round and reactive to light, cp extra-ocular motions intact. Lids and lashes normal. Conjunctiva and sclera are non-icteric and not injected. Cornea within normal limits. Periorbital areas with no swelling, redness, or edema. ENT: Nares patent. No nasal discharge, no septal abnormalities noted. Tympanic membranes are normal and external auditory canals are clear. Oropharynx with no redness, swelling, or masses, exudates, or evidence of obstruction, uvula midline. Mucous membranes moist. Neck: Trachea midline, no thyromegaly or masses palpated, and no cervical lymphadenopathy. Supple, full range of motion without nuchal rigidity, or vertebral point tenderness. No Meningismus. Chest/axilla: Normal chest wall appearance and motion. Nontender with no deformity. No lesions are appreciated. 13:18 Cardiovascular: Rate: normal, Rhythm: regular, Edema: is not appreciated, JVD: is not appreciated. 13:18 Respiratory: the patient does not display signs of respiratory distress, Respirations: normal, no use of accessory muscles, no retractions, no splinting, no tachypnea, labored breathing, is not present, Breath sounds: are clear throughout, no decreased breath sounds, no stridor, no wheezing. 13:18 Abdomen/GI: Inspection: abdomen appears normal, Bowel sounds: active, all quadrants, Palpation: abdomen is soft and non-tender, in all quadrants. 13:18 Back: pain, is absent, ROM is normal. 13:18 Musculoskeletal/extremity: Pulses: weak bilateral dorsalis pedis, Calf tenderness, of the left lower extremeity, Sensation intact. 13:18 Neuro: Orientation: to person, place \\T\\ time. Mentation: is normal, Cerebellar function: is grossly normal, Motor: moves all fours, strength is normal, Sensation: is normal. Vital Signs: 12:58 Resp 17; Height 5 ft. 0 in. (152.40 cm); ss 13:17 BP 146 / 56; Pulse 66; Resp 12; Temp 98.4(O); Pulse Ox 99% on R/A; em 14:41 BP 153 / 63; Pulse 61; Resp 15; Pulse Ox 96% on R/A; Pain 0/10; em MDM: 13:10 Patient medically screened. cp 13:20 Differential diagnosis: acute myocardial infarction, acute pericarditis, cholecystitis, cp Cholelithiasis costochondritis, pericarditis, pulmonary embolus, stable angina, unstable angina. 14:50 The patient was given aspirin in the Emergency Department. cp 15:07 Data reviewed: vital signs, nurses notes, lab test result(s), EKG, radiologic studies, cp plain films, ultrasound. Test interpretation: by ED physician or midlevel provider: ECG, plain radiologic studies. Counseling: I had a detailed discussion with the patient and/or guardian regarding: the historical points, exam findings, and any diagnostic results supporting the discharge/admit diagnosis, the presence of at least one elevated blood pressure reading (>120/80) during this emergency department visit, lab results, radiology results. Physician consultation: Josie Perry MD was called at 15:08, was contacted at 15:08, regarding admission, to the telemetry unit. 07/29 13: Order name: Basic Metabolic Panel cp 07/29 13: Order name: CBC with Diff cp 07/29 13: Order name: LFT's cp 07/29 13: Order name: Magnesium; Complete Time: 14:39 cp 07/29 13: Order name: NT PRO-BNP; Complete Time: 14:39 cp 07/29 13:09 Order name: PT-INR; Complete Time: 14:39 cp 07/29 13:09 Order name: Troponin (emerg Dept Use Only); Complete Time: 14:39 cp 07/29 13:10 Order name: Basic Metabolic Panel; Complete Time: 14:39 EDMS 07/29 13:10 Order name: CBC with Automated Diff; Complete Time: 14:39 EDMS 07/29 13:10 Order name: Liver (Hepatic) Function; Complete Time: 14:39 EDMS 07/29 13:35 Order name: Urine Dipstick--Ancillary (enter results); Complete Time: 14:39 ag 07/29 15:16 Order name: Troponin I EDNM 07/29 15:16 Order name: Troponin I EDNM 07/29 15:16 Order name: Troponin I EDNM 07/29 13:09 Order name: XRAY Chest (1 view); Complete Time: 14:39 cp 07/29 13:09 Order name: EKG; Complete Time: 13:11 cp 07/29 13:09 Order name: Cardiac monitoring; Complete Time: 13:25 cp 07/29 13:09 Order name: EKG - Nurse/Tech; Complete Time: 13:16 cp 07/29 13:09 Order name: IV Saline Lock; Complete Time: 13:25 cp 07/29 13:09 Order name: Labs collected and sent; Complete Time: 13:25 cp 07/29 13:09 Order name: O2 Per Protocol; Complete Time: 13:16 cp 07/29 13:09 Order name: O2 Sat Monitoring; Complete Time: 13:16 cp 07/29 13:16 Order name: US Extremity Venous Unilateral Ltd; Complete Time: 14:44 cp 07/29 14:44 Interpretation: Report reviewed. 07/29 13:34 Order name: Labs - recollect needed; Complete Time: 13:57 ag 07/29 15:15 Order name: CONS Physician Consult EDNM 07/29 15:15 Order name: Heart Healthy EDNM 07/29 15:16 Order name: Troponin I EDNM EC:10 Rate is 67 beats/min. Rhythm is regular. IA interval is normal. QRS interval is normal. cp QT interval is normal. Interpreted by me. Reviewed by me. Administered Medications: 13:26 Drug: Aspirin Chewable Tablet 324 mg Route: PO; em 14:50 Follow up: Response: No adverse reaction em 14:25 Drug: PlaVIX 300 mg Route: PO; em 16:31 Follow up: Response: No adverse reaction em Disposition: 18:34 Co-signature as Attending Physician, Hipolito Phan MD. rn Disposition: 07/29/18 15:34 Hospitalization ordered by Josie Perry for Observation. Preliminary diagnosis are Angina pectoris, unspecified, Chronic kidney disease (CKD). - Bed requested for Telemetry/MedSurg (observation). - Status is Observation. em - Condition is Stable. - Problem is new. - Symptoms have improved. UTI on Admission? No Signatures: Dispatcher [employer] EDLisa Mcmullen RN RN dw Davie, Rob, HEALTH CAREERS INSTRUCTOR HEALTH CAREERS INSTRUCTOR em Hipolito Phan MD MD rn Smirch, Shelby, RN RN Lindsay Benoit Corey, PA PA cp Corrections: (The following items were deleted from the chart) 15:47 15:34 Hospitalization Ordered by Josie Perry MD for Observation. Preliminary dw diagnosis is Angina pectoris, unspecified; Chronic kidney disease (CKD). Bed requested for Telemetry/MedSurg (observation). Status is Observation. Condition is Stable. Problem is new. Symptoms have improved. UTI on Admission? No. cp 16:31 15:47 07/29/2018 15:34 Hospitalization Ordered by Josie Perry MD for Observation. em Preliminary diagnosis is Angina pectoris, unspecified; Chronic kidney disease (CKD). Bed requested for Telemetry/MedSurg (observation). Status is Observation. Condition is Stable. Problem is new. Symptoms have improved. UTI on Admission? No. dw
--- NOTE | 2018-07-29 16:27 | P.HP ---
Certification for Inpatient Patient admitted to: Observation With expected LOS: <2 Midnights Patient will require the following post-hospital care: None Practitioner: I am a practitioner with admitting privileges, knowledge of patient current condition, hospital course, and medical plan of care. Services: Services provided to patient in accordance with Admission requirements found in Title 42 Section 412.3 of the Code of Federal Regulations Patient History Date of Service: 07/29/18 Primary Care Provider: Dr Perry Reason for admission: Elevated Troponin and SOB History of Present Illness: This is a 70-year-old female with significant past medical history of CAD, [place], hypertension, hyperlipidemia, diabetes, congestive heart failure, who presented to the ED with complaints of intermittent chest pain. Patient stated that she has been having intermittent chest pain for over 2 weeks now recently was traveling to . [place] noticed that she was having some chest pain and it was different than all her other times. Initially she thought it was indigestion however when it started radiating to her neck and had jaw walk along with chills she decided to go to the ER there. Patient was seen at [facility] [place] [place] and was recommended to be admitted to the hospital and have a heart catheterization done at that time. Patient however left the hospital AMA as she wanted to come here to the hospital to see Dr. Dunaway. When she came to the hospital here in the ER patient's chest pain had resolved. However patient lab work and imaging were done due to concern for acute coronary syndrome given her extensive history. Patient initially had elevated troponin and BNP along with creatinine in the ER thus was referred over for admission Allergies iodine [Iodine] Allergy (Severe, Verified 10/03/16 15:46) throat swelling diphenhydramine HCl [From Benadryl] Allergy (Verified 12/08/16 09:34) Anaphylaxis hydralazine Allergy (Verified 10/03/16 15:46) dizziness, hot flashes morphine Allergy (Verified 10/03/16 15:46) Unknown Sulfa (Sulfonamide Antibiotics) Allergy (Verified 10/03/16 15:46) Unknown sulfamethoxazole [From Bactrim] Allergy (Verified 10/03/16 15:46) Anaphylaxis trimethoprim [From Bactrim] Allergy (Verified 10/03/16 15:46) Anaphylaxis levofloxacin [From Levaquin] Adverse Reaction (Severe, Verified 10/03/16 15:46) vomiting Narcotics Allergy (Severe, Uncoded 12/08/16 09:34) Anaphylaxis Home Medications: Clopidogrel Bisulfate [Plavix*] 75 mg PO DAILY 11/29/13 Metoprolol Tartrate [Lopressor] 100 mg PO DAILY 05/15/14 Amlodipine Besylate [Norvasc] 10 mg PO DAILY #30 tablet 06/22/16 Lactobacillus Combo No.13 [Probiotic Pearls Complete] 1 cap PO DAILY 06/29/16 Atorvastatin Calcium [Lipitor*] 20 mg PO BEDTIME 02/15/17 Cholecalciferol (Vitamin D3) [Vitamin D3] 5,000 unit PO BID 02/15/17 Insulin Degludec [Tresiba Flextouch U-200] 40 units SQ BREAKFAST 02/15/17 Benzonatate [Tessalon Perle] 200 mg PO TID PRN #20 cap 02/18/17 Furosemide [Lasix] 20 mg PO DAILY #30 tab 02/18/17 Potassium Chloride 10 meq PO DAILY #30 tab.er.prt 02/18/17 - Past Medical/Surgical History Diabetic: Yes -: Diabetes mellitus type 2 -: Hypertension -: Chronic renal disease -: Broken tani shoulders, toes tani feet, L elbow hx -: Cataract -: History DVT to the left lower extremity -: Hyperlipidemia -: CAD with multiple stents -: Peripheral vascular disease -: Carotid arterial disease -: History of osteomyelitis -: Severe cervical spine disease -: Cardiac Cath with 3 stents -: 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 She has 6 children - Family History Father -: GI disease, Cancer Mother -: GI disease, Stroke, Other (see notes) Notes: brain tumor Brother -: Heart disease, Hypertension, Diabetes, Kidney disease Sister -: Heart disease, Hypertension, GI disease - Social History Alcohol use: No CD- Drugs: No Caffeine use: Yes Review of Systems 10-point ROS is otherwise unremarkable Physical Examination - Physical Exam General: Alert, Mild distress Neck: JVD distended Respiratory: Normal air movement, Crackles/rales Cardiovascular: Regular rate/rhythm, Normal S1 S2, Edema Gastrointestinal: Normal bowel sounds, No tenderness Musculoskeletal: No tenderness, Swelling Integumentary: No rashes Neurological: Normal gait, Normal speech, Normal strength at 5/5 x4 extr, Normal tone, Normal affect Lymphatics: No axilla or inguinal lymphadenopathy - Studies Laboratory Data (last 24 hrs) 07/29/18 13:45: PT 11.3, INR 0.96 07/29/18 13:45: WBC 7.1, Hgb 13.5, Hct 41.5, Plt Count 229 07/29/18 13:45: Sodium 141, Potassium 4.3, BUN 52 H, Creatinine 2.43 H, Glucose 263 H, Magnesium 2.4, Total Bilirubin 0.4, AST 17, ALT 14, Alkaline Phosphatase 84 Assessment and Plan - Problems (Diagnosis) (1) CHF exacerbation Onset Date: 02/16/17 Current Visit: No Status: Acute Plan: acute CHF exacerbation most likely 2.2 to recent travel, poor Fluid restriction and diet -Pt also with Elevated Troponin most likely 2.2 to CHF and decreased ability to be cleared from Kidney due to ARF -Pt with BL 3+ Leg swelling, Orthopena and Crackles on PE -IV lasix 40mg BID -Fluids restriction and NA restriction -Cardiology consulted. Awaiting Reccs Qualifiers: Heart failure type: systolic Qualified Code(s): I50.23 - Acute on chronic systolic (congestive) heart failure (2) Chest pain Onset Date: 12/08/16 Current Visit: No Status: Resolved Plan: Atypical Chest Pain most likely stable angina -Pt with Extensive H/o CAD with Several stent placement and recent heart Cath with Cardiology -Chest pain resolved now -Cardiology Consulted. Awaiting reccs -Restart ACS meds here in the hospital -Repeat Troponix x 2 Qualifiers: Chest pain type: unspecified Qualified Code(s): R07.9 - Chest pain, unspecified (3) CAD (coronary artery disease) Onset Date: 05/16/14 Current Visit: No Status: Chronic Plan: See # 2 Qualifiers: Coronary Disease-Associated Artery/Lesion type: red devil artery [place] vs. transplanted heart: red devil heart Associated angina: with stable angina Qualified Code(s): I25.118 - Atherosclerotic heart disease of red devil coronary artery with other forms of angina pectoris (4) CKD (chronic kidney disease) Onset Date: 05/16/14 Current Visit: No Status: Chronic Plan: pt with CKD now with Acute kidney failure most likely 2.2 to CHF exacerbation -IV lasix for now -Monitor BUN.CR for now as well -If no improvement will get Dr Whitman to see the patient Qualifiers: Chronic kidney disease stage: stage 3 (moderate) Qualified Code(s): N18.3 - Chronic kidney disease, stage 3 (moderate) (5) Diabetes mellitus Onset Date: 07/31/14 Current Visit: No Status: Chronic Plan: ISS and accuchecks -BS currently elevated -Will monitor Qualifiers: Diabetes mellitus type: type 2 Diabetes mellitus detention insulin use: with detention use Diabetes mellitus complication status: with kidney complications Diabetes mellitus complication detail: with chronic kidney disease Chronic kidney disease stage: stage 3 (moderate) Qualified Code(s): E11.22 - Type 2 diabetes mellitus with diabetic chronic kidney disease; N18.3 - Chronic kidney disease, stage 3 (moderate); 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 (6) Hyperlipidemia Onset Date: 12/08/16 Current Visit: No Status: Chronic Qualifiers: Hyperlipidemia type: mixed hyperlipidemia Qualified Code(s): E78.2 - Mixed hyperlipidemia (7) Hypertension Onset Date: 12/08/16 Current Visit: No Status: Chronic Qualifiers: Hypertension type: essential hypertension Qualified Code(s): I10 - Essential (primary) hypertension (8) Obesity Current Visit: No Status: Chronic Qualifiers: Obesity type: due to excess calories Obesity classification: adult class 1 (BMI 30 - 34.9) Serious obesity comorbidity presence: with serious comorbidity Body mass index: BMI 31.0-31.9 Qualified Code(s): E66.09 - Other obesity due to excess calories; Z68.31 - Body mass index (BMI) 31.0-31.9, adult (9) PVD (peripheral vascular disease) Onset Date: 06/30/16 Current Visit: No Status: Chronic - Plan Admit pt to med surg for CHF exacerbation and ARF. Discharge Plan: Home Plan to discharge in: 48 Hours - Advance Directives Does patient have a Living Will: No Does patient have a Durable POA for Healthcare: Yes - Code Status/Comfort Care Code Status Assessed: Yes Critical Care: No
[2018-07-29] MEDS: INSULIN -REGULAR HUMAN 50 UNIT/0.5 ML ML SQ SCH ×2 (16:55→21:52)
[2018-07-29] MEDS ORDERED: ONDANSETRON 4 MG/2 ML VIAL IV PRN (16:55)
[2018-07-29] MEDS ORDERED: FUROSEMIDE 40 MG/4 ML VIAL IV SCH (17:00)
[2018-07-29 18:13] VITALS: BMI 34.4
[2018-07-29] MEDS: FUROSEMIDE 20 MG/ 2ML VIAL IV SCH ×2 (18:14→18:23)
[2018-07-29 18:31] LABS: Urine Appearance CLEAR; Urine Bilirubin NEGATIVE (NEG); Urine Blood NEGATIVE (NEG); Urine Color YELLOW; Urine Glucose TRACE (NEG); Urine Protein 2+ (NEG); Urine Urobilinogen 0.2 mg/dL (0.2-1.0)
[2018-07-29 18:41] LABS: Urine Microscopic Reflex ORDER UMIC
[2018-07-29 19:24] LABS: Urine Bacteria <20 /HPF (<20); Urine RBC <5 /HPF (NONE SEEN)
[2018-07-29 19:25] LABS: Urine Culture Reflex Order NOT NEEDED
[2018-07-29] MEDS: METOPROLOL XL 100 MG TAB PO SCH (23:42)
[2018-07-30] MEDS: INSULIN -REGULAR HUMAN 50 UNIT/0.5 ML ML SQ SCH ×4 (07:30→21:04)
[2018-07-30 07:35] LABS: Absolute Lymphocytes (CBC) 1.7 K/uL (0.7-4.9); Absolute Monocytes 0.6 K/uL (0.1-1.3); Absolute Neutrophil 3.3 K/uL (1.8-8.0); Basophils % 0.9 % (0-1.3); Eosinophils % 4.4 % (0-4.4); Hematocrit 39.7 % (36.0-45.0); Lymphocytes % 28.8 % (15.3-44.8); MPV 8.4 fL (7.6-11.3); Monocytes % 10.4 % (3.3-12.3)
[2018-07-30 08:03] LABS: Albumin 3.4 g/dL (3.4-5.0); Bilirubin Total 0.5 mg/dL (0.2-1.0); Potassium 3.9 mmol/L (3.5-5.1); Protein, Total 6.8 g/dL (6.4-8.2); Thyroid Stimulating Hormone 2.36 uIU/mL (0.360-3.740)
[2018-07-30] MEDS ORDERED: HOME MED 1 EA UNK (Linagliptin [Tradjenta] 5 MG) PO SCH (09:00)
[2018-07-30] MEDS: FUROSEMIDE 20 MG/ 2ML VIAL IV SCH (09:00)
[2018-07-30] MEDS: FUROSEMIDE 20 MG TABLET PO SCH (09:31)
[2018-07-30] MEDS: HYDRALAZINE HCL 25 MG TABLET PO SCH ×2 (09:31→21:02)
[2018-07-30] MEDS: AMLODIPINE 10 MG TAB PO SCH ×2 (09:31→21:03)
[2018-07-30] MEDS: METOPROLOL XL 100 MG TAB PO SCH ×2 (09:32→21:03)
--- NOTE | 2018-07-30 09:56 | EKG ---
Test Date: 2018-07-29 Test Time: 13:02:33 Train Braker: [place] MEASUREMENT RESULTS: Intervals: Rate: 67 [place]: 184 QRSD: 88 QT: 432 QTc: 456 [place]: P: 48 [place]: 184 QRS: 3 T: 39 INTERPRETIVE STATEMENTS: Normal sinus rhythm Anteroseptal infarct, age undetermined Abnormal ECG Compared to ECG 02/15/2017 10:51:09 No significant changes Electronically Signed On 07-30-18 09:55:07 CDT by Solomon Rothman
--- NOTE | 2018-07-30 10:05 | P.CNS ---
Date of Consult: 07/30/18 patient seen/examined for ckd. patient has followed with Dr. King and has had a hx of renal disease with hx of dm for over 30 yrs and htn hx more recently. she presents with episodes of chest pain. last one went on for several hours and was radiating to left shoulder and neck. Ti positive and cardiology on board. patient is planned to get cardiac cath for evalaution of cad tomorrow. already ordered mucomyst. advisory application developer aware of allergy to iodine...? using alternative dye and/or using steroids to pre-medicated. patient has no sob/no cp now. advised to avoid exertion. risks of renal disease possibly progressing with cardiac cath explained; but this procedure is necessary and recommended. patient understands and seems to have good insight. lasix has been cut back by advisory application developer and mucomyst ordered; i agree with their plan. vs stable. sbp 150-170 range. pulse 70. resp 14/comfortable. alert/no pain. talking in full sentences lungs: cta cvs rrr abd soft ext no edema. moving all extremities. social: good family support. no alcohol/no ivda/no tobbaco abuse. meds: reviewed. allergies: reviewed. labs: reviewed. a/p: ckd/htn/dm/cad (nstmi): advisory application developer following/cath planned for tomorrow. on mycomyst/lasix cut back. additional dose of hydralazine with lunch if sbp greater than 160, RN advised. patient just got her bp meds. monitor bp. patient counseled to not exert herself and call if any assistance needed. risks/ benefits of cardiac cath reviewed; plan for procedure as per advisory application developer.
[2018-07-30] MEDS: NA CHLORIDE 0.9% 1,000 ML IV SCH (11:07)
[2018-07-30] MEDS ORDERED: HYDRALAZINE HCL 25 MG TABLET PO ONE (11:30)
--- NOTE | 2018-07-30 11:40 | P.PN ---
Subjective Date of Service: 07/30/18 Primary Care Provider: Dr Perry Chief Complaint: Elevated Troponin and SOB Subjective: Doing well (Patient without chest pain or shortness of breath at this time) Physical Examination - Vital Signs Temperature: 97.3 F Blood Pressure: 169/57 Pulse: 62 Respirations: 18 Pulse Ox (%): 98 - Physical Exam General: Alert, In no apparent distress, Oriented x3, Cooperative HEENT: Atraumatic Neck: Supple Respiratory: Clear to auscultation bilaterally, Normal air movement Cardiovascular: Normal pulses, Regular rate/rhythm Gastrointestinal: Normal bowel sounds, Soft and benign, Non-distended, No tenderness, No masses, No rebound, No guarding Musculoskeletal: No erythema, No tenderness, No warmth Integumentary: No erythema, No warmth, No cyanosis Neurological: Normal speech, Normal strength at 5/5 x4 extr, Normal tone, Normal affect - Studies Laboratory Data (last 24 hrs) 07/29/18 13:45: PT 11.3, INR 0.96 07/29/18 13:45: WBC 7.1, Hgb 13.5, Hct 41.5, Plt Count 229 07/29/18 13:45: Sodium 141, Potassium 4.3, BUN 52 H, Creatinine 2.43 H, Glucose 263 H, Magnesium 2.4, Total Bilirubin 0.4, AST 17, ALT 14, Alkaline Phosphatase 84 Medications List Reviewed: Yes Assessment & Plan Discharge Plan: Home Plan to discharge in: 48 Hours Physician Review Additional Text: Impression: Chest pain/shortness of breath secondary to non ST wave [place] with history of CAD and prior stents Hypertension Chronic renal disease, stage IV Diabetes mellitus type 2, insulin dependent Obesity, BMI 34.4 Plan: Chest pain/shortness of breath secondary to non ST wave [place] with history of CAD and prior stents: Notes reviewed along with lab. Patient with non ST wave [place]. Patient with prior history of CAD and stents. Nephrology and cardiology have evaluated patient. Patient will require cardiac catheterization to further evaluate her CAD. Patient with allergy to iodine and with chronic renal disease. Solu-Medrol given. Mucomyst initiated. Heart catheterization set up for tomorrow. Nephrology has discussed with patient about possible worsening renal function status post heart catheterization. Patient understands risks. Continue monitor closely. Will adjust medications appropriately. Will change status from observation to inpatient due to her non ST wave KS and current medical conditions. Likely discharge in the next 24-48 hr pending results of heart catheterization. Hypertension: Continue with medication at this time. Will need to adjust medication appropriately for better control. Chronic renal disease, stage IV: Patient started on Mucomyst. Nephrology has made adjustments to medication. Continue monitor closely. Diabetes mellitus type 2, insulin dependent: Her basal insulin will be restarted. Will provide insulin sliding scale and monitor closely. Obesity, BMI 34.4: Will address lifestyle modification education. Time Spent Managing Pts Care (In Minutes): 55
--- NOTE | 2018-07-30 13:27 | CON ---
History Of Present Illness: Mrs. Gonzalez is 78. She came to the hospital with chest pain and she h as abnormal troponin levels consistent with myocardial necrosis. She has had angina that could possi rebecca be called a stable pattern, but went to a over the weekend near [place], [place]. Went to an emergency room there because of chest pain. She was told she needed a cardiac cath, but she l eft the emergency room AMA. Came to our ER and was admitted here. She has had all of her other hear t procedures done here. She has severe peripheral vascular disease that is inoperable. All the smal l vessels below the knee are less than 1 mm vessels. She has no ulcers on her feet. She has claudic ation. She has never had cerebral vascular disease that has been operated on anyway and she has dulce nary heart disease with at least 1 stent and 1 balloon angioplasty. She has underlying diabetes, hyp ertension, dyslipidemia. Allergies: SHE IS ALLERGIC TO IODINE, DIPHENHYDRAMINE, MORPHINE. Medications: Insulin, hydralazine, amlodipine, metoprolol, Linagliptin and furosemide. Social History: She uses no tobacco, no alcohol, no illegal drugs. Physical Examination: Vital Signs: 5 feet, 0 inch tall, 176 pounds. General: Obese. Alert, oriented, pleasant. Not in distress. Lungs: Clear. Heart: Within normal limits. Abdomen: Soft. Extremities: No palpable pulses in the feet. Popliteal pulses are palpable. Skin of the feet is mildly discolored mildly purple but there is warmth and there are no ulcers on th e feet. Laboratory Data: Her hemoglobin, hematocrit, white blood cell count, platelet counts are all normal. Her creatinine is 2.22, estimated GFR 21. Apparently, this is an improvement. All of her troponin s are in the 0.91 to 0.99 range. She has had 4 of them so far. N-terminal proBNP is very elevated a t 14222+. Impression: The patient has unstable angina. She has stage 4 renal disease and really needs to have a cardiac cath. I will discuss it with her usual carton marker machine, Dr. King and try and get her on t he catheterization schedule for tomorrow, although I realize it may be delayed. She will get a drug Solu-Medrol right before her cardiac cath to prevent the allergic reaction to iodine, but I think a c ardiac cath is needed, even though it may threaten her remain in renal function and leave her as a di alysis patient. SABI/LIO Voice ID: [id number] Report ID: [id number]
--- NOTE | 2018-07-30 13:40 | ECHO ---
HEIGHT: 5 ft 0 in WEIGHT: 176 lb 3 oz DATE OF STUDY: 07/30/[address]: Solomon Rothman MD 2-DIMENSIONAL: YES M.MODE: YES DOPPLER: YES COLOR FLOW: YES TDS: NO PORTABLE: NO DEFINITY: NO BUBBLE STUDY: NO DIAGNOSIS: CORONARY ARTERY DISEASE, CHEST PAIN, CONGESTIVE HEART FAILURE CARDIAC HISTORY: CATHERIZATION: YES SURGERY: NO PROSTHETIC VALVE: NO PACEMAKER: NO MEASUREMENTS (cm) DIASTOLIC (NORMALS) SYSTOLIC (NORMALS) IVSd 1.3 (0.6-1.2) LA Diam 3.9 (1.9-4.0) LVEF 69% LVIDd 4.4 (3.5-5.7) LVIDs 2.7 (2.0-3.5) %FS 39% LVPWd 1.3 (0.6-1.2) Ao Diam 2.6 (2.0-3.7) 2 DIMENSIONAL ASSESSMENT: RIGHT ATRIUM: NORMAL LEFT ATRIUM: NORMAL RIGHT VENTRICLE: NORMAL LEFT VENTRICLE: NORMAL TRICUSPID VALVE: NORMAL MITRAL VALVE: NORMAL PULMONIC VALVE: NORMAL AORTIC VALVE: NORMAL PERICARDIAL EFFUSION: NONE AORTIC ROOT: NORMAL LEFT VENTRICULAR WALL MOTION: NORMAL. DOPPLER/COLOR FLOW: MILD MITRAL REGURGITATION. COMMENTS: NORMAL 2D ECHO. MILD MITRAL REGURGITATION. TECHNOLOGIST: URIEL LOPEZ
[2018-07-30] MEDS ORDERED: INSULIN DEGLUDEC 10 UNIT SQ SCH (21:00)
[2018-07-30] MEDS: ACETYLCYST 20% 800 MG/4 ML VIAL PO SCH (21:00)
[2018-07-31] MEDS ORDERED: NITROGLYCERIN 0.4 MG/TAB SL ONE ×4 (02:53→15:31)
[2018-07-31 04:59] LABS: Absolute Lymphocytes (CBC) 1.7 K/uL (0.7-4.9); Absolute Monocytes 0.8 K/uL (0.1-1.3); Absolute Neutrophil 3.3 K/uL (1.8-8.0); Basophils % 0.5 % (0-1.3); Eosinophils % 3.8 % (0-4.4); Hematocrit 35.8 % (36.0-45.0); Lymphocytes % 28.2 % (15.3-44.8); MPV 8.5 fL (7.6-11.3); Monocytes % 12.9 % (3.3-12.3); RBC Red Blood Cell Count 3.89 M/uL (3.86-4.86)
[2018-07-31] MEDS: METOPROLOL XL 100 MG TAB PO SCH ×2 (05:08→05:09)
[2018-07-31] MEDS: AMLODIPINE 10 MG TAB PO SCH (05:09)
[2018-07-31] MEDS: NA CHLORIDE 0.9% 1,000 ML IV SCH (05:10)
[2018-07-31 05:11] LABS: Magnesium 2.1 mg/dL (1.8-2.4)
[2018-07-31] MEDS: INSULIN -REGULAR HUMAN 50 UNIT/0.5 ML ML SQ SCH ×3 (07:30→16:30)
[2018-07-31] MEDS: FUROSEMIDE 20 MG TABLET PO SCH (09:00)
[2018-07-31] MEDS: HYDRALAZINE HCL 25 MG TABLET PO SCH (09:00)
[2018-07-31] MEDS: ACETYLCYST 20% 800 MG/4 ML VIAL PO SCH (09:18)
[2018-07-31 11:47] VITALS: TEMP 97.9
[2018-07-31] MEDS ORDERED: METHYLPREDNISOLONE 125 MG INJ IV ONE (12:00)
--- NOTE | 2018-07-31 12:04 | EKG ---
Test Date: 2018-07-31 Test Time: 03:18:55 Commercial Decorator: RT MEASUREMENT RESULTS: Intervals: Rate: 62 SD: 188 QRSD: 90 QT: 482 QTc: 489 [place]: P: 41 SD: 188 QRS: 4 T: 60 INTERPRETIVE STATEMENTS: Normal sinus rhythm Low voltage QRS Septal infarct, age undetermined Abnormal ECG Compared to ECG 07/29/2018 13:02:33 Low QRS voltage now present Myocardial infarct finding still present Electronically Signed On 07-31-18 12:02:23 CDT by Portillo Arteaga
--- NOTE | 2018-07-31 13:42 | P.PN ---
Subjective Date of Service: 07/31/18 Primary Care Provider: Dr Perry Chief Complaint: Elevated Troponin and SOB Subjective: Other (Patient had chest pain last night and required nitroglycerin. Patient without chest pain this morning) Physical Examination - Vital Signs Temperature: 97.9 F Blood Pressure: 135/62 Pulse: 63 Respirations: 18 Pulse Ox (%): 98 - Physical Exam General: Alert, In no apparent distress, Oriented x3, Cooperative HEENT: Atraumatic Neck: Supple Respiratory: Clear to auscultation bilaterally, Normal air movement Cardiovascular: Normal pulses, Regular rate/rhythm Neurological: Normal speech, Normal strength at 5/5 x4 extr, Normal tone, Normal affect - Studies Medications List Reviewed: Yes Assessment & Plan Discharge Plan: Home Plan to discharge in: 24 Hours Physician Review Additional Text: Impression: Chest pain/shortness of breath secondary to non ST wave RI with history of CAD and prior stents Hypertension Chronic renal disease, stage IV Diabetes mellitus type 2, insulin dependent Obesity, BMI 34.4 Plan: Chest pain/shortness of breath secondary to non ST wave RI with history of CAD and prior stents: Patient required nitroglycerin last night. Patient remained stable at this time. Patient to have heart catheterization today. Await findings. Patient has been given Solu-Medrol and Mucomyst in preparation for procedure. Will continue to monitor renal function. Will discuss case further with cardiology and nephrology. Likely discharge in the next 24-48 hr pending findings. Hypertension: Continue with medication at this time. Will need to adjust medication appropriately for better control. Chronic renal disease, stage IV: Patient has been given Mucomyst and Solu- Medrol. Nephrology has made adjustments to medication. Continue monitor closely. Diabetes mellitus type 2, insulin dependent: Continue to monitor and adjust her basal insulin. Will provide insulin sliding scale and monitor closely. Obesity, BMI 34.4: Will continue to address lifestyle modification education. Time Spent Managing Pts Care (In Minutes): 55
[2018-07-31] MEDS ORDERED: NITROGLYCERIN 0.4 MG/TAB SL PRN (14:12)
[2018-07-31] MEDS ORDERED: HEPA 1000U/500MLS 1,000 UNIT/500 ML BAG IV ONE (15:04)
[2018-07-31] MEDS ORDERED: METHYLPREDNISOLONE 125 MG INJ ONE (15:21)
[2018-07-31] MEDS ORDERED: NA CHLORIDE 0.9% 0 ML ONE (15:22)
[2018-07-31] MEDS ORDERED: MIDAZOLAM HCL 2 MG/2 ML INJ ONE (15:22)
[2018-07-31] MEDS ORDERED: ATROPINE SULF 1 MG/10 ML SYR IV ONE (15:22)
[2018-07-31] MEDS ORDERED: FENTANYL CITR 100 MCG/2 ML ONE (15:22)
[2018-07-31] MEDS ORDERED: NITROGLYCERIN 100 MCG/ML SYR (for cath lab use only) IV ONE (15:44)
[2018-07-31] MEDS ORDERED: NITROGLYCERIN/D5W 50 MG/250 ML BTL IV ONE (15:44)
--- NOTE | 2018-07-31 17:12 | P.DS ---
Admission Date: 07/30/18 Discharge Date: 07/31/18 Primary Care Provider: Dr. John Perry; Cardiology-Dr. Arteaga Disposition: TRANSFER TO [facility] Discharge Condition: GOOD Reason for Admission: Elevated Troponin and SOB Consultations: Cardiology-Dr. Arteaga Nephrology-Dr. Drake Procedures: Echocardiogram: LEFT VENTRICULAR WALL MOTION: NORMAL. DOPPLER/COLOR FLOW: MILD MITRAL REGURGITATION. COMMENTS: NORMAL 2D ECHO. MILD MITRAL REGURGITATION Heart catheterization: Significant triple vessel heart disease requiring transfer for CABG. Medical problem list: Chest pain/shortness of breath secondary to non ST wave MA with history of CAD and prior stents status post heart catheterization showing significant triple vessel heart disease requiring CABG Hypertension Chronic renal disease, stage IV Diabetes mellitus type 2, insulin dependent Obesity, BMI 34.4 Brief History of Present Illness: 78-year-old female presented with chest pain. Patient had been seen down in the [facility] area for chest pain. She was admitted at that time for acute MA. It was recommended that she had a heart catheterization. The patient preferred to be with her stud driver locally. She left against medical advice. Patient was admitted for non ST wave MA. Patient with chronic renal disease, diabetes, hypertension and CAD with prior stents. Hospital Course: Patient presented with chest pain and shortness of breath. Patient with underlying history of CAD and prior stents. Patient had non ST wave MA. Patient was evaluated by cardiology and nephrology. Due to her chronic renal disease the patient was given Solu-Medrol and Mucomyst in preparation for heart catheterization. Heart catheterization showed triple-vessel disease. Cardiology recommended CABG due to her significant disease. Cardiology spoke to cardiovascular surgery for transfer of care. Cardiovascular agrees with plan of care. Patient to be transferred to [facility] for CABG. Patient currently in ICU. Patient started on nitro drip due to continued chest pain. Patient stable at this time for transfer. Patient with hypertension, chronic renal disease, stage IV, diabetes mellitus type 2 insulin dependent. Her chronic conditions will be further managed by cardiology and nephrology. Patient may require dialysis if her renal function worsens. This can be further addressed at [facility]. Vital Signs/Physical Exam: Temp Pulse Resp BP Pulse Ox 97.9 F 63 18 135/62 98 07/31/18 13:42 07/31/18 13:42 07/31/18 13:42 07/31/18 13:42 07/31/18 13:42 General: Alert, In no apparent distress, Oriented x3, Cooperative HEENT: Atraumatic Neck: Supple Respiratory: Clear to auscultation bilaterally, Normal air movement Cardiovascular: Normal pulses, Regular rate/rhythm Gastrointestinal: Normal bowel sounds, Soft and benign, Non-distended Laboratory Data at Discharge: WBC 6.0 K/uL (4.3-10.9) 07/31/18 03:44 Hgb 12.1 g/dL (12.0-15.0) 07/31/18 03:44 Hct 35.8 % (36.0-45.0) L 07/31/18 03:44 Plt Count 201 K/uL (152-406) 07/31/18 03:44 PT 11.3 SECONDS (9.5-12.5) 07/29/18 13:45 INR 0.96 07/29/18 13:45 Sodium 141 mmol/L (136-145) 07/31/18 03:44 Potassium 4.0 mmol/L (3.5-5.1) 07/31/18 03:44 BUN 52 mg/dL (7-18) H 07/31/18 03:44 Creatinine 2.50 mg/dL (0.55-1.3) H 07/31/18 03:44 Glucose 161 mg/dL (74-106) H 07/31/18 03:44 Magnesium 2.1 mg/dL (1.8-2.4) 07/31/18 03:44 Total Bilirubin 0.5 mg/dL (0.2-1.0) 07/30/18 07:25 AST 16 U/L (15-37) 07/30/18 07:25 ALT 14 U/L (12-78) 07/30/18 07:25 Alkaline Phosphatase 72 U/L (45-117) 07/30/18 07:25 Troponin I 0.92 ng/mL (0.0-0.045) H* 07/30/18 07:25 Triglycerides 127 mg/dL (<150) 07/30/18 07:25 Cholesterol 148 mg/dL (<200) 07/30/18 07:25 HDL Cholesterol 43 mg/dL (40-60) 07/30/18 07:25 Cholesterol/HDL Ratio 3.44 07/30/18 07:25 Home Medications: Amlodipine [Norvasc*] 10 mg PO BID 07/29/18 Furosemide 20 mg PO DAILY 07/29/18 Hydralazine [Apresoline*] 25 mg PO BID 07/29/18 Insulin Degludec [Tresiba Flextouch U-200] 10 unit SQ BEDTIME 07/29/18 Linagliptin [Tradjenta] 5 mg PO DAILY 07/29/18 Metoprolol Succinate [Toprol Xl] 100 mg PO BID 07/29/18 Patient Discharge Instructions: 1. Transfer to [facility] for CAGB due to Triple vessel disease. Diet: ADA Activity: Fall precautions Time spent managing pt's care (in minutes): 55
[2018-07-31 18:01] VITALS: BP 143/57; O2SAT 98
--- NOTE | 2018-08-01 02:07 | OP ---
Surgeon: Portillo Arteaga MD Medical Terminologist: Gladis Claros. Indications For Procedure: Admitted to Dr. Hdez on 07/29/2018 for chest pain and congestive heart failure. Procedure In Detail: Today, she was brought to the labourers on 07/31/2018, had a left heart catheter ization and selective coronary artery angiogram. A 6-Ugandan sheath was introduced in the right commo n femoral artery. The patient did not receive any sedation because of allergies to narcotics. She w as prepped and draped in a routine sterile fashion. A 6-Ugandan sheath introduced in the right common femoral artery and StarClose was used to close the case. Angiography there was normal. A 6-Ugandan Andrea catheter was used to do the diagnostic catheterization. She was found to have a 70% left adal n, 80% LAD, 90% proximal circ, 80% to 90% long RCA stenosis. A 6-Ugandan sheath was used. Complications: No complications. Blood Loss: 5 cc. Anesthesia: Total conscious sedation, 30 minutes. Postoperative Diagnosis: Severe 3-vessel coronary artery disease. Plan: Plan is for CABG. She will be placed on nitroglycerin drip. Sent to the ICU. We will follow on her BNP. She had elevated creatinine for which she got Mucomyst before and she will get Mucomyst after the procedure. She also got Solu-Medrol before the procedure because of dye allergy. ALEJANDRO/LIO Voice ID: [id number] Report ID: [id number]
--- NOTE | 2018-08-01 06:18 | EKG ---
Test Date: 2018-07-31 Test Time: 14:13:09 Floor Supervisor: CARLOS MANUEL MEASUREMENT RESULTS: Intervals: Rate: 70 [place]: 192 QRSD: 98 QT: 430 QTc: 464 [place]: P: 59 [place]: 192 QRS: 73 T: 42 INTERPRETIVE STATEMENTS: Normal sinus rhythm Septal infarct, age undetermined Abnormal ECG Compared to ECG 07/31/2018 03:18:55 No significant changes Electronically Signed On 08-01-18 06:17:18 CDT by Solomon Rothman
== END 2018-07-31 18:15 | disposition short-term general hospital (02) | DRG 280 ==
LOC: ER 12:37 → INTOOBSV 15:11 → ERHOLD 15:11 → OBSVTOIN 15:11 → 4TH 16:16 → OBSVTOIN 07-30 11:32 → 3RD-ICU 07-31 16:05
PROVIDERS: ADMIT Family Medicine; ATTEND Family Medicine
PROC: 4A023N7 Measurement of Cardiac Sampling and Pressure, Left Heart, Percutaneous Approach (ICD-10-PCS; principal; 2018-07-31)
PROC: B201YZZ Plain Radiography of Multiple Coronary Arteries using Other Contrast (ICD-10-PCS; 2018-07-31)
PROC: B205YZZ Plain Radiography of Left Heart using Other Contrast (ICD-10-PCS; 2018-07-31)
DX: I21.4 Non-ST elevation (NSTEMI) myocardial infarction (principal); I50.23 Acute on chronic systolic (congestive) heart failure; I13.0 Hypertensive heart and chronic kidney disease with heart failure and stage 1 through stage 4 chronic kidney disease, or unspecified chronic kidney disease; N18.4 Chronic kidney disease, stage 4 (severe); I25.110 Atherosclerotic heart disease of native coronary artery with unstable angina pectoris; E11.22 Type 2 diabetes mellitus with diabetic chronic kidney disease; Z95.5 Presence of coronary angioplasty implant and graft; E66.9 Obesity, unspecified; Z68.34 Body mass index [BMI] 34.0-34.9, adult
CPT/HCPCS: 36415; 71045; 80048; 80053; 80061; 80076; 81003; 81015; 82962; 83735; 83880; 84443; 84484; 85025; 85610; 93005; 93306; 93454; 93971; 99285; C1893; G0378; J0583; J1940; J2250; J2405; J2930; J3010; J7030

== ENCOUNTER 2018-08-16 13:52 | Inpatient (IN) | payer OTHER ==
--- NOTE | 2018-08-20 13:04 | R.PREADM ---
SCREENING DATE AND TIME 08/20/2018 11:13 (CDT) ANTICIPATED REHAB ADMISSION DATE 08/22/2018 REFERRING FACILITY [facility] REFERRAL DATE AND TIME 08/20/2018 11:13 (CDT) ACUTE ADMIT DATE 07/31/2018 Previous Rehabilitation(s): No. ACUTE SUPERVISOR FERTILIZER PROCESSING/DC BICYCLE REPAIRMAN Luisa Palmer REFERRING PHYSICIAN Deo Sung REHAB FACILITY [facility] CLINICAL LIAISON Milly Regan PHYSICIAN REVIEWER Dr. Rober Keller M.D. [facility]# [id number] [id number] NAME HENRIQUE GONZALEZ ADDRESS [address] [place] [address] [address]IP [id number] DATE OF 1940 AGE 78 SSN# [id number] GENDER female MARITAL STATUS RACE white ADMIT FROM 02 - [facility] PRE-HOSPITAL LIVING SETTING 01 - Home (private home/apt. board/care, assisted living, shelter, transitional living) HOME TYPE AND DETAILS Type of home: single family house # of steps to enter the residence: 0 # of steps within the residence: 0 # of levels in the residence: 1 PRE-HOSPITAL LIVING WITH Family/Relatives FAMILY SUPPORT Yes PRIMARY FAMILY CONTACT NAME Ivonne Hanley PRIMARY FAMILY CONTACT PHONE PHONE PRIMARY FAMILY CONTACT ON ADM.? no IS PRIMARY FAMILY CONTACT AUTH. REP.? no 1ST EMERGENCY CONTACT Ivonne Hanley 1ST CONTACT PHONE PHONE 1ST CONTACT ON ADM. no IS 1ST CONTACT AUTH. REP.? no PHONE 2ND CONTACT ON ADM.? no PATIENT EMPLOYMENT STATUS Retired (for age) PATIENT EMPLOYER No Employer PAYOR INFORMATION: 1ST PAYOR NAME [employer] 1ST PAYOR INJURY/ILLNESS DUE TO ACCIDENT? No ANOTHER LIBERTARIAN RESPONSIBLE? No PRIMARY REHAB/ACUTE DIAGNOSIS: NSTEMI ONSET DATE 07/31/2018 REHAB IMPAIRMENT CATEGORY (ANETA): 14 Cardiac does NOT meet 60% rule PRIMARY DIAGNOSIS-RELATED SURGERIES: IABP insertion and removal impella pci COMORBID REHAB/ACUTE DIAGNOSES: - Non-Tiered unstable angina CKD Stage 4 IDDM - N/A DIABETIC NEUROPATHY mild thrombocytopenia SUMMARY OF ACUTE HOSPITALIZATION: Pt. is a 78 yo Right-handed white female. On 07/31/2018 she was admitted to [facility] with diagnosis NSTEMI. Her impairment category is Cardiac 09 - Cardiac Disorders (09). Pre-morbidly, Pt. was independent/mod-I in Self-Care, Sphincter Control, Transfers Control, Communica tion, Social Cognition, and Locomotion; and she had good Sphincter Control. Currently, she has deficits of Transfers Control, Communication, Social Cognition, Endurance, Balance , Safety Awareness, Self-Care, and Locomotion. Pt. is now referred to [facility] for acute in-patient rehabilitation in order to maximize patient's functional independence in activities of daily living, strength, ROM, and mobi lity. Patient has realistic goal of being discharged at assistance level 6-Tracie to reside at Home with Fam giovanna/Relatives. Henrique Gonzalez is a 78 old female that lives with her in a single marisel home with two steps with 2 rails that separate the kitchen from the living room. On 07/31/2018, she had a chest pain and elevated troponin and was admitted to [facility] and treated. She is now medically stable but in need of 24-hour nursing, doctor supervision and oversite participate in 3hours of therapy a day/15 hours per week and receive care with an intensive interdisciplinary approach. PAST MEDICAL HISTORY CKD Stage 4 DIABETIC NEUROPATHY IDDM mild thrombocytopenia unstable angina MEDICATION ALLERGIES: Heparin analogues iodine and iodide containing products morphine vicodin codeine levaquin phenergan reglan benadryl ENVIRONMENTAL ALLERGIES: - Substance Allergies None Known - Other Allergies None Known CODE STATUS: Full code WEIGHT/HEIGHT/BMI: WEIGHT 190 lbs HEIGHT 5' 6" BMI 30.7 DIET: - Diet Type ADA 1800 jesús - Diet - Solid Texture Regular - Diet - Liquid Texture Regular - Tube Feed N/A SKIN DIAGRAM: Incision on Groin; extent - small; stage - NS(Not Stageable). Treatment - Per Physician's Orders. REVIEW OF SYSTEMS: - Gen Alert and awake Lying in bed No apparent distress Oriented to: person, time, and place - CVS RRR VITAL SIGNS Temperature: 97.1 F SBP/DBP: 107/52 Pulse: 82 Resp: 18 Vital signs stable, afebrile MEDICATIONS/TREATMENT: Other- See attached MAR (Medication Administration Record) [id number].pdf. CURRENT SPHINCTER CONTROL: Pre-hospital bladder status: continent # of bladder accidents in the last 7 days prior to screenin Pre-hospital bowel status: continent # of bowel accidents in the last 7 days prior to screenin Last Bowel Movement Date: 08/20/2018 DETAILED CURRENT FUNCTIONAL STATUS: - Bladder accident frequency: Ind - No accidents in the past 7 days - Bowel accident frequency: Ind - No accidents in the past 7 days - Walking score based on distance walked: 0(N/A) FUNCTIONAL STATUS: - Self-Care A. Eating Ind Ind B. Grooming Ind sup C. Bathing Ind Aj D. Dressing - Upper Ind sup E. Dressing - Lower Ind modA F. Toileting Ind modA - Sphincter Control G: Bladder control Ind Ind H: Bowel control Ind Ind - Transfers Control I. Bed/Chair/Wheelchair Ind CGA J. Toilet Ind CGA K. Tub/Shower Ind CGA - Locomotion L. Walk/Wheelchair (B) Ind maxA M. Stairs Ind ADNO - Communication N. Comprehension (B) Ind sup O. Expression (B) Ind sup - Social Cognition P. Social Interaction Ind sup Q. Problem Solving Ind sup R. Memory Ind sup - Endurance Poor - Balance Fair - Safety Awareness Fair CURRENT FUNC. DEFICITS: Transfers Control, Communication, Social Cognition, Endurance, Balance, Safety Awareness, Self-Care, and Locomotion THERAPY NOTES FROM ACUTE CARE: Attached. SPECIAL NEEDS: - Safety Concerns Skin breakdown precautions needed due to skin breakdown risk PATIENT NEEDS ACTIVE AND ONGOING THERAPEUTIC INTERVENTION OF MULTIPLE THERAPY DISCIPLINES, INCLUDING: - Dietary and Nutrition Adequate Nutrition. Nutritional Education. Nutritional Supplements. PATIENT NEEDS CLOSE MEDICAL SUPERVISION BY A REHABILITATION PHYSICIAN FOR: Bowel and Bladder Management Coordination of Treatment Team Medical and Co-Morbidity Management Wound Care PATIENT REQUIRES 24X7 REHAB NURSING FOR MEDICAL AND FUNCTIONAL MGT. OF THE FOLLOWING DEFICITS: ADL's Ambulation Bowel and Bladder Management Cognition Communication Disease Management Medication Management Patient/Family Education Providing Safe Environment Skin Integrity Transfers PATIENT REQUIRES INTENSIVE, COORDINATED INTERDISCIPLINARY APPROACH TO REHAB: Arranging Home Equipment/Services Discharge Planning Family Intervention/Training Tank Assembler/Case Management PATIENT REHAB POTENTIAL: Chace GONZALEZ is able and expected to receive 3 hours of individualized therapy daily on at least 5 of every 7 days Chace GONZALEZ's prognosis for significant practical improvement within a reasonable period of time appe ars Good Expected level of measurable improvement will be of a practical value to Chace GONZALEZ's functional cap acity or adaptations to impairments Has a viable Discharge Plan Medically appropriate; condition is sufficiently stable to participate in intensive rehab program DISCHARGE PLAN: - Estimated Length of Stay (days) 10. - Consensus on plan Discharge plan has been discussed with primary caregiver. Patient/Family is in agreement with the jeramie n. Primary caregiver is in agreement with the plan. - Patient/Family Goals Return home with assistance. - Planned Living Setting Upon Discharge Home, to live with Family/Relatives. RECOMMENDED CARE LEVEL: IRF RECOMMENDATION DETAILS: Recommended Admission to Comprehensive Rehabilitation Program to Increase Functional [place] SCREENER'S COMPLETENESS CONFIRMATION: - Screening Confirmation The patient data collection on this preadmission screening form is finished PHYSICIANS REVIEW AND ADMISSION DETERMINATION Admit - Based on my review of the Pre-Admission Screening results, in my medical judgment and experie nce, I concur with the findings and recommend admission to [facility], as this patient requires an IRF level of care. SIGNATURE PANEL: Clinical Liaison - [electronically] signed by Skylar Soto on 08/20/2018 at 12:08 (CDT) Clinical Liaison - [electronically] signed by Milly Regan on 08/20/2018 at 12:12 (CDT) Physician Reviewer - [electronically] signed by Dr. Rober Keller M.D. on 08/20/2018 at 13:02 (CDT )
--- OUTSIDE RECORDS SUMMARY | 2018-08-20 16:26 | XMS REPORT | Clinical Summary ---
:1940 Author Organization [facility] Address [address] [place] [address] Care Team Providers Name Role Phone John Perry Primary Care Provider Unavailable Roland Dueñas Unavailable Hakan King Engineer Allergies Active Allergy Reactions Severity Noted Date Comments Diphenhydramine Hcl Palpitations Low 07/31/2018 Codeine Hives 07/31/2018 Iodine And Iodide Containing Products Anaphylaxis High 07/31/2018 Levofloxacin Tinitus 07/31/2018 Morphine Anaphylaxis High 07/31/2018 Promethazine Nausea Only 07/31/2018 Metoclopramide Hcl Nausea Only 07/31/2018 Hydrocodone-Acetaminophen Anaphylaxis High 07/31/2018 Medications Medication Sig Dispensed Refills Start End Date Status Date clopidogrel Take 1 tablet by 0 Active (PLAVIX) 75 mg mouth daily. tablet RESTASIS 0.05 % Place 1 drop into 1 Active ophthalmic both eyes 2 (two) 9 emulsion times daily. acetaminophen Take 2 tablets 0 Active (TYLENOL) 500 MG (1,000 mg total) by 9 tablet mouth every 6 (six) hours as needed. amiodarone Take 1 tablet (200 0 08/21/19 Active (PACERONE) 200 MG mg total) by mouth 9 20 tablet daily. aspirin 81 MG Take 1 tablet (81 0 08/21/19 Active chewable tablet mg total) by mouth 9 20 daily. atorvastatin Take 1 tablet (80 0 08/20/19 Active (LIPITOR) 80 MG mg total) by mouth 9 20 tablet nightly. bumetanide (BUMEX) Take 1 tablet (0.5 0 08/20/19 Active 0.5 MG tablet mg total) by mouth 9 20 2 (two) times daily with breakfast and dinner. cyanocobalamin Inject 1 mL (1,000 0 Active (VITAMIN B-12) mcg total) 9 1,000 mcg/mL intramuscularly injection daily. folic acid Take 1 tablet (1 mg 0 08/21/19 Active (FOLVITE) 1 MG total) by mouth 9 20 tablet daily. glucagon, human Inject 1 mL (1 mg 0 Active recombinant, 1 total) 9 mg/mL SolR intramuscularly as injection needed (Hypoglycemia and patient unable to take PO and has no IV access ). heparin injection Inject 1 mL (5,000 1 mL Active 5,000 units/mL for Units total) 9 DVT subcutaneously prophylaxis/dialys every 12 (twelve) is lock/IV bolus hours. insulin lispro Inject 0-12 Units 10 mL 0 08/20/19 Active (HUMALOG) 100 subcutaneously as 9 20 unit/mL injection needed (High blood sugar). ipratropium Take 2.5 mLs (0.5 75 mL 0 08/20/19 Active (ATROVENT) 0.02 % mg total) by 9 20 nebulizer solution nebulization every 6 (six) hours. thiamine 100 MG Take 1 tablet (100 0 08/21/19 Active tablet mg total) by mouth 9 20 daily. senna-docusate Take 2 tablets by 0 08/20/19 Active (SENOKOT S) 8.6-50 mouth 2 (two) times 9 20 mg per tablet daily. pantoprazole Take 1 tablet (40 0 Active (PROTONIX) 40 MG mg total) by mouth 9 tablet daily. oxymetazoline 2 sprays by Nasal 30 mL 0 08/24/19 Active (AFRIN) 0.05 % route 2 (two) times 9 19 nasal spray daily as needed (epistaxis) for up to 3 days. nitroglycerin Put 1 pill under 0 08/20/19 Active (NITROSTAT) 0.4 MG tongue every 5min 9 20 SL tablet as needed for chest pain.No more than 3 doses in 15min.. mINOCYCLine Take 1 capsule (100 0 08/20/19 Active (MINOCIN,DYNACIN) mg total) by mouth 9 20 100 MG capsule every 12 (twelve) hours Continue as long as patient has open, draining wound. meropenem (MERREM) Inject 500 mg 0 08/24/19 Active MBP 500 mg in 100 intravenously daily 9 19 mL NS for 3 days. LORazepam (ATIVAN) Take 1 tablet (0.5 0 Active 0.5 MG tablet mg total) by mouth 9 daily as needed for Anxiety. Max Daily Amount: 0.5 mg metoprolol Take 1 tablet (25 0 08/20/19 Active (LOPRESSOR) 25 MG mg total) by mouth 9 20 tablet 2 (two) times daily. epoetin rubina-epbx Inject 1 mL (10,000 0 Active (RETACRIT) 10,000 Units total) 9 unit/mL Soln subcutaneously injection every other day If hemoglobin less than 9. amLODIPine Take 10 mg by mouth 0 08/21/19 Discontinued (NORVASC) 10 MG daily. 19 tablet hydrALAZINE Take 25 mg by mouth 0 08/21/19 Discontinued (APRESOLINE) 25 MG 2 (two) times 19 tablet daily. metoprolol Take 1 tablet by 0 08/21/19 Discontinued ta-hydrochlorothia mouth daily. 19 z (LOPRESSOR HCT) 100-50 mg per tablet metoprolol Take 100 mg by 0 08/21/19 Discontinued (LOPRESSOR) 100 MG mouth 2 (two) times 19 tablet daily. furosemide (LASIX) Take 40 mg by mouth 0 08/21/19 Discontinued 40 MG tablet daily. 19 metoprolol Take 100 mg by 0 08/21/19 Discontinued (TOPROL-XL) 100 MG mouth 2 (two) times 19 24 hr tablet daily. linagliptin Take 5 mg by mouth 0 08/21/19 Discontinued (TRADJENTA) 5 mg daily. 19 Tab ALPRAZolam (XANAX) Take 0.5 mg by 0 08/21/19 Discontinued 0.5 MG mouth as needed for 19 tabletIndications: Anxiety. anxiety insulin degludec Inject 10 Units 0 08/21/19 Discontinued (TRESIBA FLEXTOUCH subcutaneously 7 19 U-200) 200 unit/mL daily. (3 mL) InPn simvastatin Take 0.5 tablets by 1 08/21/19 Discontinued (ZOCOR) 40 MG mouth every 9 19 tablet evening. Active Problems Problem Noted Date Chronic systolic CHF (congestive heart failure) 08/20/2018 Acute kidney injury superimposed on CKD 08/20/2018 CKD (chronic kidney disease) stage 4, GFR 15-29 ml/min 08/01/2018 IDDM (insulin dependent diabetes mellitus) 08/01/2018 NSTEMI s/p Impella PCI by Dr. Todd 08/01/18 08/01/2018 Unstable angina 07/31/2018 Encounters Date Type Specialty Care Team Description 08/07/2018 Surgery Spencer Todd R & L CATH / MD Дмитрий CORONARY ANGIOS / PCI 08/02/2018 Travel 08/01/2018 Surgery Spencer Todd CATH & PCI MD Дмитрий 08/01/2018 Anesthesia Event Sajan Mendoza MD 07/31/2018 - Hospital Encounter Cardiology Tina Christianson Unstable angina ( [facility]) (Primary Dx); 08/20/2018 MD Olman CKD (chronic kidney disease) stage 4, GFR 15-29 ml/min ([facility]); eDo Sung, NSTEMI (non-ST elevated myocardial infarction) ([facility]); Acute hypoxemic respiratory failure ([facility]); Edie OTIS (acute kidney injury) ([facility]); MD Daniel NSTEMI s/p Impella PCI by Dr. Todd 08/01/18; Spencer Todd Anemia of renal disease; MD Дмитрий Refusal of blood transfusions as patient is [facility] 07/31/2018 Orders Only General Internal Medicine after 08/19/2017 Social History Tobacco Use Types Packs/Day Years Used Date Never Smoker Smokeless Tobacco: Never Used Sex Assigned at Date Recorded Not on file Job Start Date Occupation Industry Not on file Not on file Not on file Travel History Travel Start Travel End No recent travel history available. Last Filed Vital Signs Vital Sign Reading Time Taken Blood Pressure 109/53 08/20/2018 11:04 AM CDT Pulse 77 08/20/2018 11:04 AM CDT Temperature 36.7 C (98.1 F) 08/20/2018 11:04 AM CDT Respiratory Rate 18 08/20/2018 11:04 AM CDT Oxygen Saturation 98% 08/20/2018 11:04 AM CDT Inhaled Oxygen Concentration 50% 08/11/2018 11:45 AM CDT Weight 77 kg (169 lb 12.8 oz) 08/20/2018 4:00 AM CDT Height 154.9 cm (5' 1") 07/31/2018 7:55 PM CDT Body Mass Index 32.08 08/20/2018 4:00 AM CDT Plan of Treatment Not on file Implants Implanted Type Area Solar Energy System Installer Device Shelf Model / Identifier Expiration Serial / Date Lot Stent Synergy Mr [id number] - [id number] IMPLANTS N/A: BOSTON [id number] 04/04/2020 [id number] / Implanted: Qty: 1 on 08/01/2018 by Spencer Todd MD Coronary SCI:INTERV / CARDIOLOGY [id number] Stent Synergy Mr [id number] - [id number] IMPLANTS N/A: [employer]ON [id number] 04/04/2020 [id number] / Implanted: Qty: 1 on 08/01/2018 by Spencer Todd MD Coronary SCI:INTERV / CARDIOLOGY [id number] Stent Synergy Mr [id number] - [id number] IMPLANTS N/A: BOSTON [id number] 04/01/2020 [id number] / Implanted: Qty: 1 on 08/01/2018 by Spencer Todd MD Coronary SCI:INTERV / CARDIOLOGY [id number] Stent Synergy Otw [id number] - [id number] IMPLANTS Left: BOSTON [id number] 05/16/2020 [id number] / Implanted: Qty: 1 on 08/07/2018 by Spencer Todd MD Coronary SCI:INTERV / CARDIOLOGY [id number] Stent Synergy Otw [id number] - [id number] IMPLANTS Right: BOSTON [id number] 04/30/2020 [id number] / Implanted: Qty: 1 on 08/07/2018 by Spencer Todd MD Coronary SCI:INTERV / CARDIOLOGY [id number] Stent Synergy Otw [id number] - [id number] IMPLANTS Right: [employer]ON [id number] 05/21/2020 [id number] / Implanted: Qty: 1 on 08/07/2018 by Spencer Todd MD Coronary SCI:INTERV / CARDIOLOGY [id number] Stent Synergy Mr [id number] - [id number] IMPLANTS Right: B[employer]ON [id number] 04/10/2020 [id number] / Implanted: Qty: 1 on 08/07/2018 by Spencer Todd MD Coronary SCI:INTERV / CARDIOLOGY [id number] Stent Synergy Otw [id number] [id number] - [id number] IMPLANTS Right: [employer]ON [id number] 04/15/2020 [id number] / Implanted: Qty: 1 on 08/07/2018 by Spencer Todd MD Coronary SCI:INTERV / CARDIOLOGY [id number] Procedures Procedure Name Priority Date/Time Associated Comments Diagnosis POCT-GLUCOSE METER Routine 08/20/2018 12:04 Results for this PM CDT procedure are in the results section. CBC W/PLT COUNT & AUTO Routine 08/20/2018 9:27 Results for this DIFFERENTIAL AM CDT procedure are in the results section. CBC W/PLT COUNT & AUTO Routine 08/20/2018 9:27 Results for this DIFFERENTIAL AM CDT procedure are in the results section. POCT-GLUCOSE METER Routine 08/20/2018 7:44 Results for this AM CDT procedure are in the results section. BASIC METABOLIC PANEL Routine 08/20/2018 3:38 Results for this (7) AM CDT procedure are in the results section. POCT-GLUCOSE METER Routine 08/19/2018 8:49 Results for this PM CDT procedure are in the results section. POCT-GLUCOSE METER Routine 08/19/2018 6:22 Results for this PM CDT procedure are in the results section. POCT-GLUCOSE METER Routine 08/19/2018 12:43 Results for this PM CDT procedure are in the results section. POCT-GLUCOSE METER Routine 08/19/2018 8:22 Results for this AM CDT procedure are in the results section. POCT-GLUCOSE METER Routine 08/19/2018 4:23 Results for this AM CDT procedure are in the results section. BASIC METABOLIC PANEL Routine 08/19/2018 4:12 Results for this (7) AM CDT procedure are in the results section. POCT-GLUCOSE METER Routine 08/18/2018 9:54 Results for this PM CDT procedure are in the results section. POCT-GLUCOSE METER Routine 08/18/2018 6:31 Results for this PM CDT procedure are in the results section. POCT-GLUCOSE METER Routine 08/18/2018 1:11 Results for this PM CDT procedure are in the results section. POCT-GLUCOSE METER Routine 08/18/2018 8:10 Results for this AM CDT procedure are in the results section. POCT-GLUCOSE METER Routine 08/18/2018 7:19 Results for this AM CDT procedure are in the results section. BASIC METABOLIC PANEL Routine 08/18/2018 5:03 Results for this (7) AM CDT procedure are in the results section. POCT-GLUCOSE METER Routine 08/18/2018 4:02 Results for this AM CDT procedure are in the results section. POCT-GLUCOSE METER Routine 08/18/2018 3:47 Results for this AM CDT procedure are in the results section. POCT-GLUCOSE METER Routine 08/18/2018 3:39 Results for this AM CDT procedure are in the results section. POCT-GLUCOSE METER Routine 08/17/2018 10:17 Results for this PM CDT procedure are in the results section. POCT-GLUCOSE METER Routine 08/17/2018 7:28 Results for this PM CDT procedure are in the results section. POCT-GLUCOSE METER Routine 08/17/2018 1:08 Results for this PM CDT procedure are in the results section. POCT-GLUCOSE METER Routine 08/17/2018 12:16 Results for this PM CDT procedure are in the results section. CBC W/PLT COUNT & AUTO Routine 08/17/2018 10:25 Results for this DIFFERENTIAL AM CDT procedure are in the results section. CBC W/PLT COUNT & AUTO Routine 08/17/2018 10:25 Results for this DIFFERENTIAL AM CDT procedure are in the results section. POCT-GLUCOSE METER Routine 08/17/2018 8:06 Results for this AM CDT procedure are in the results section. BASIC METABOLIC PANEL Routine 08/17/2018 3:55 Results for this (7) AM CDT procedure are in the results section. POCT-GLUCOSE METER Routine 08/16/2018 9:26 Results for this PM CDT procedure are in the results section. POCT-GLUCOSE METER Routine 08/16/2018 5:58 Results for this PM CDT procedure are in the results section. POCT-GLUCOSE METER Routine 08/16/2018 12:46 Results for this PM CDT procedure are in the results section. POCT-GLUCOSE METER Routine 08/16/2018 8:27 Results for this AM CDT procedure are in the results section. BASIC METABOLIC PANEL Routine 08/16/2018 4:01 Results for this (7) AM CDT procedure are in the results section. POCT-GLUCOSE METER Routine 08/16/2018 3:02 Results for this AM CDT procedure are in the results section. CT PELVIS WITHOUT IV Routine 08/16/2018 2:38 Results for this CONTRAST AM CDT procedure are in the results section. ECHOCARDIOGRAM REPORT - 08/15/2018 9:12 SCAN PM CDT POCT-GLUCOSE METER Routine 08/15/2018 8:55 Results for this PM CDT procedure are in the results section. POCT-GLUCOSE METER Routine 08/15/2018 6:11 Results for this PM CDT procedure are in the results section. LIMITED 2D Routine 08/15/2018 3:53 Results for this ECHOCARDIOGRAM PM CDT procedure are in the results section. POCT-GLUCOSE METER Routine 08/15/2018 1:45 Results for this PM CDT procedure are in the results section. POCT-GLUCOSE METER Routine 08/15/2018 8:00 Results for this AM CDT procedure are in the results section. BASIC METABOLIC PANEL Routine 08/15/2018 4:59 Results for this (7) AM CDT procedure are in the results section. POCT-GLUCOSE METER Routine 08/14/2018 10:50 Results for this PM CDT procedure are in the results section. POCT-GLUCOSE METER Routine 08/14/2018 5:47 Results for this PM CDT procedure are in the results section. POCT-GLUCOSE METER Routine 08/14/2018 12:22 Results for this PM CDT procedure are in the results section. URINALYSIS W/ REFLEX Routine 08/14/2018 10:53 Results for this URINE CULTURE AM CDT procedure are in the results section. URINE CULTURE Routine 08/14/2018 10:53 Results for this AM CDT procedure are in the results section. RESPIRATORY PANEL [facility] Add-On 08/14/2018 10:18 Results for this AM CDT procedure are in the results section. XR CHEST 1 VIEW RHETT 08/14/2018 9:13 Results for this PORTABLE/BEDSIDE AM CDT procedure are in the results section. POCT-GLUCOSE METER Routine 08/14/2018 8:16 Results for this AM CDT procedure are in the results section. (CELLAVISION MANUAL Routine 08/14/2018 5:57 Results for this DIFF) AM CDT procedure are in the results section. CBC W/PLT COUNT & AUTO Routine 08/14/2018 5:57 Results for this DIFFERENTIAL AM CDT procedure are in the results section. CBC W/PLT COUNT & AUTO Routine 08/14/2018 5:57 Results for this DIFFERENTIAL AM CDT procedure are in the results section. PHOSPHORUS Routine 08/14/2018 5:57 Results for this AM CDT procedure are in the results section. COMPREHENSIVE METABOLIC Routine 08/14/2018 5:57 Results for this PANEL AM CDT procedure are in the results section. CALCIUM, IONIZED Routine 08/14/2018 5:57 Results for this AM CDT procedure are in the results section. MAGNESIUM Routine 08/14/2018 5:57 Results for this AM CDT procedure are in the results section. POCT-GLUCOSE METER Routine 08/13/2018 10:46 Results for this PM CDT procedure are in the results section. POCT-GLUCOSE METER Routine 08/13/2018 5:40 Results for this PM CDT procedure are in the results section. POCT-GLUCOSE METER Routine 08/13/2018 12:16 Results for this PM CDT procedure are in the results section. POCT-GLUCOSE METER Routine 08/13/2018 8:33 Results for this AM CDT procedure are in the results section. CBC W/PLT COUNT & AUTO Routine 08/13/2018 2:19 Results for this DIFFERENTIAL AM CDT procedure are in the results section. CBC W/PLT COUNT & AUTO Routine 08/13/2018 2:19 Results for this DIFFERENTIAL AM CDT procedure are in the results section. PHOSPHORUS Routine 08/13/2018 2:19 Results for this AM CDT procedure are in the results section. COMPREHENSIVE METABOLIC Routine 08/13/2018 2:19 Results for this PANEL AM CDT procedure are in the results section. CALCIUM, IONIZED Routine 08/13/2018 2:19 Results for this AM CDT procedure are in the results section. MAGNESIUM Routine 08/13/2018 2:19 Results for this AM CDT procedure are in the results section. POCT-GLUCOSE METER Routine 08/13/2018 2:15 Results for this AM CDT procedure are in the results section. POCT-GLUCOSE METER Routine 08/12/2018 9:02 Results for this PM CDT procedure are in the results section. POCT-GLUCOSE METER Routine 08/12/2018 5:39 Results for this PM CDT procedure are in the results section. POCT-GLUCOSE METER Routine 08/12/2018 12:01 Results for this PM CDT procedure are in the results section. POCT-GLUCOSE METER Routine 08/12/2018 7:31 Results for this AM CDT procedure are in the results section. POCT-GLUCOSE METER Routine 08/12/2018 4:33 Results for this AM CDT procedure are in the results section. XR CHEST 1 VIEW Routine 08/12/2018 4:12 Results for this PORTABLE/BEDSIDE AM CDT procedure are in the results section. CBC W/PLT COUNT & AUTO Routine 08/12/2018 3:15 Results for this DIFFERENTIAL AM CDT procedure are in the results section. CBC W/PLT COUNT & AUTO Routine 08/12/2018 3:15 Results for this DIFFERENTIAL AM CDT procedure are in the results section. PHOSPHORUS Routine 08/12/2018 3:15 Results for this AM CDT procedure are in the results section. COMPREHENSIVE METABOLIC Routine 08/12/2018 3:15 Results for this PANEL AM CDT procedure are in the results section. CALCIUM, IONIZED Routine 08/12/2018 3:15 Results for this AM CDT procedure are in the results section. MAGNESIUM Routine 08/12/2018 3:15 Results for this AM CDT procedure are in the results section. POCT-GLUCOSE METER Routine 08/12/2018 12:00 Results for this AM CDT procedure are in the results section. POCT-GLUCOSE METER Routine 08/11/2018 9:31 Results for this PM CDT procedure are in the results section. POCT-GLUCOSE METER Routine 08/11/2018 5:47 Results for this PM CDT procedure are in the results section. MAGNESIUM Routine 08/11/2018 3:47 Results for this PM CDT procedure are in the results section. BASIC METABOLIC PANEL Routine 08/11/2018 3:47 Results for this (7) PM CDT procedure are in the results section. POCT-GLUCOSE METER Routine 08/11/2018 11:41 Results for this AM CDT procedure are in the results section. POCT-GLUCOSE METER Routine 08/11/2018 7:39 Results for this AM CDT procedure are in the results section. CBC W/PLT COUNT & AUTO Routine 08/11/2018 3:40 Results for this DIFFERENTIAL AM CDT procedure are in the results section. CBC W/PLT COUNT & AUTO Routine 08/11/2018 3:40 Results for this DIFFERENTIAL AM CDT procedure are in the results section. MAGNESIUM Routine 08/11/2018 3:40 Results for this AM CDT procedure are in the results section. BASIC METABOLIC PANEL Routine 08/11/2018 3:40 Results for this (7) AM CDT procedure are in the results section. XR CHEST 1 VIEW Routine 08/11/2018 3:26 Results for this PORTABLE/BEDSIDE AM CDT procedure are in the results section. POCT-GLUCOSE METER Routine 08/10/2018 11:25 Results for this PM CDT procedure are in the results section. POCT-GLUCOSE METER Routine 08/10/2018 5:34 Results for this PM CDT procedure are in the results section. MAGNESIUM Routine 08/10/2018 3:35 Results for this PM CDT procedure are in the results section. BASIC METABOLIC PANEL Routine 08/10/2018 3:35 Results for this (7) PM CDT procedure are in the results section. XR CHEST 1 VIEW Routine 08/10/2018 2:50 Results for this PORTABLE/BEDSIDE PM CDT procedure are in the results section. BLOOD GAS, ARTERIAL STAT 08/10/2018 2:27 Results for this PM CDT procedure are in the results section. LACTIC ACID, ARTERIAL STAT 08/10/2018 2:26 Results for this PM CDT procedure are in the results section. POCT-GLUCOSE METER Routine 08/10/2018 11:42 Results for this AM CDT procedure are in the results section. POCT-GLUCOSE METER Routine 08/10/2018 7:42 Results for this AM CDT procedure are in the results section. POCT-GLUCOSE METER Routine 08/10/2018 6:36 Results for this AM CDT procedure are in the results section. POCT-GLUCOSE METER Routine 08/10/2018 5:42 Results for this AM CDT procedure are in the results section. XR CHEST 1 VIEW Routine 08/10/2018 5:07 Results for this PORTABLE/BEDSIDE AM CDT procedure are in the results section. (CELLAVISION MANUAL Routine 08/10/2018 4:23 Results for this DIFF) AM CDT procedure are in the results section. CBC W/PLT COUNT & AUTO Routine 08/10/2018 4:23 Results for this DIFFERENTIAL AM CDT procedure are in the results section. CBC W/PLT COUNT & AUTO Routine 08/10/2018 4:23 Results for this DIFFERENTIAL AM CDT procedure are in the results section. BASIC METABOLIC PANEL Routine 08/10/2018 4:23 Results for this (7) AM CDT procedure are in the results section. MAGNESIUM Routine 08/10/2018 4:23 Results for this AM CDT procedure are in the results section. POCT-GLUCOSE METER Routine 08/09/2018 7:59 Results for this PM CDT procedure are in the results section. POCT-GLUCOSE METER Routine 08/09/2018 5:27 Results for this PM CDT procedure are in the results section. POCT-GLUCOSE METER Routine 08/09/2018 1:37 Results for this PM CDT procedure are in the results section. POCT-GLUCOSE METER Routine 08/09/2018 7:55 Results for this AM CDT procedure are in the results section. CBC W/PLT COUNT & AUTO Routine 08/09/2018 5:00 Results for this DIFFERENTIAL AM CDT procedure are in the results section. CBC W/PLT COUNT & AUTO Routine 08/09/2018 5:00 Results for this DIFFERENTIAL AM CDT procedure are in the results section. BASIC METABOLIC PANEL Routine 08/09/2018 4:59 Results for this (7) AM CDT procedure are in the results section. XR CHEST 1 VIEW Routine 08/09/2018 4:35 Results for this PORTABLE/BEDSIDE AM CDT procedure are in the results section. POCT-GLUCOSE METER Routine 08/08/2018 9:53 Results for this PM CDT procedure are in the results section. POCT-GLUCOSE METER Routine 08/08/2018 6:31 Results for this PM CDT procedure are in the results section. XR CHEST 1 VIEW Routine 08/08/2018 3:35 Results for this PORTABLE/BEDSIDE PM CDT procedure are in the results section. XR CHEST 1 VIEW Routine 08/08/2018 1:26 Results for this PORTABLE/BEDSIDE PM CDT procedure are in the results section. POCT-GLUCOSE METER Routine 08/08/2018 12:15 Results for this PM CDT procedure are in the results section. POCT-GLUCOSE METER Routine 08/08/2018 7:47 Results for this AM CDT procedure are in the results section. XR CHEST 1 VIEW Routine 08/08/2018 4:49 Results for this PORTABLE/BEDSIDE AM CDT procedure are in the results section. CBC W/PLT COUNT & AUTO Routine 08/08/2018 3:53 Results for this DIFFERENTIAL AM CDT procedure are in the results section. BASIC METABOLIC PANEL Routine 08/08/2018 3:53 Results for this (7) AM CDT procedure are in the results section. MAGNESIUM Routine 08/08/2018 3:53 Results for this AM CDT procedure are in the results section. CBC W/PLT COUNT & AUTO Routine 08/08/2018 3:53 Results for this DIFFERENTIAL AM CDT procedure are in the results section. POCT-GLUCOSE METER Routine 08/07/2018 10:10 Results for this PM CDT procedure are in the results section. MAGNESIUM STAT 08/07/2018 9:35 Results for this PM CDT procedure are in the results section. BASIC METABOLIC PANEL STAT 08/07/2018 9:35 Results for this (7) PM CDT procedure are in the results section. POCT-ACT Routine 08/07/2018 6:55 Results for this PM CDT procedure are in the results section. POCT-ACT Routine 08/07/2018 6:20 Results for this PM CDT procedure are in the results section. POCT-ACT Routine 08/07/2018 5:45 Results for this PM CDT procedure are in the results section. POCT-ACT Routine 08/07/2018 5:23 Results for this PM CDT procedure are in the results section. R & L CATH / CORONARY 08/07/2018 1:32 Congestive heart ANGIOS / PCI PM CDT failure, unspecified HF chronicity, unspecified heart failure type (HCC) POCT-GLUCOSE METER Routine 08/07/2018 12:21 Results for this PM CDT procedure are in the results section. POCT-GLUCOSE METER Routine 08/07/2018 7:27 Results for this AM CDT procedure are in the results section. XR CHEST 1 VIEW Routine 08/07/2018 5:41 Results for this PORTABLE/BEDSIDE AM CDT procedure are in the results section. CBC W/PLT COUNT & AUTO Routine 08/07/2018 5:01 Results for this DIFFERENTIAL AM CDT procedure are in the results section. CBC W/PLT COUNT & AUTO Routine 08/07/2018 5:01 Results for this DIFFERENTIAL AM CDT procedure are in the results section. PHOSPHORUS Routine 08/07/2018 5:01 Results for this AM CDT procedure are in the results section. COMPREHENSIVE METABOLIC Routine 08/07/2018 5:01 Results for this PANEL AM CDT procedure are in the results section. CALCIUM, IONIZED Routine 08/07/2018 5:01 Results for this AM CDT procedure are in the results section. MAGNESIUM Routine 08/07/2018 5:01 Results for this AM CDT procedure are in the results section. ECHOCARDIOGRAM REPORT - 08/06/2018 9:21 SCAN PM CDT POCT-GLUCOSE METER Routine 08/06/2018 9:19 Results for this PM CDT procedure are in the results section. POCT-GLUCOSE METER Routine 08/06/2018 5:05 Results for this PM CDT procedure are in the results section. POCT-GLUCOSE METER Routine 08/06/2018 12:44 Results for this PM CDT procedure are in the results section. 2D ECHO W/ DOPPLER Routine 08/06/2018 10:34 Results for this (CW/PW/COLOR) AM CDT procedure are in the results section. POCT-GLUCOSE METER Routine 08/06/2018 7:26 Results for this AM CDT procedure are in the results section. XR CHEST 1 VIEW Routine 08/06/2018 4:12 Results for this PORTABLE/BEDSIDE AM CDT procedure are in the results section. CBC W/PLT COUNT & AUTO Routine 08/06/2018 4:03 Results for this DIFFERENTIAL AM CDT procedure are in the results section. APTT STAT 08/06/2018 4:03 Results for this AM CDT procedure are in the results section. BASIC METABOLIC PANEL Routine 08/06/2018 4:03 Results for this (7) AM CDT procedure are in the results section. MAGNESIUM Routine 08/06/2018 4:03 Results for this AM CDT procedure are in the results section. CBC W/PLT COUNT & AUTO Routine 08/06/2018 4:03 Results for this DIFFERENTIAL AM CDT procedure are in the results section. POCT-GLUCOSE METER Routine 08/05/2018 9:44 Results for this PM CDT procedure are in the results section. POCT-GLUCOSE METER Routine 08/05/2018 5:08 Results for this PM CDT procedure are in the results section. POCT-GLUCOSE METER Routine 08/05/2018 11:17 Results for this AM CDT procedure are in the results section. POCT-GLUCOSE METER Routine 08/05/2018 7:15 Results for this AM CDT procedure are in the results section. XR CHEST 1 VIEW Routine 08/05/2018 5:32 Results for this PORTABLE/BEDSIDE AM CDT procedure are in the results section. CBC W/PLT COUNT & AUTO Routine 08/05/2018 5:29 Results for this DIFFERENTIAL AM CDT procedure are in the results section. BASIC METABOLIC PANEL Routine 08/05/2018 5:29 Results for this (7) AM CDT procedure are in the results section. CBC W/PLT COUNT & AUTO Routine 08/05/2018 5:29 Results for this DIFFERENTIAL AM CDT procedure are in the results section. MAGNESIUM Routine 08/05/2018 5:29 Results for this AM CDT procedure are in the results section. POCT-GLUCOSE METER Routine 08/04/2018 10:02 Results for this PM CDT procedure are in the results section. POCT-GLUCOSE METER Routine 08/04/2018 6:17 Results for this PM CDT procedure are in the results section. URINALYSIS W/ REFLEX Routine 08/04/2018 2:05 Results for this URINE CULTURE PM CDT procedure are in the results section. URINE CULTURE Routine 08/04/2018 2:05 Results for this PM CDT procedure are in the results section. POCT-GLUCOSE METER Routine 08/04/2018 1:01 Results for this PM CDT procedure are in the results section. OCCULT BLOOD, STOOL Routine 08/04/2018 9:51 Results for this AM CDT procedure are in the results section. C. DIFFICILE GDH TOXIN Routine 08/04/2018 9:51 Results for this AM CDT procedure are in the results section. POCT-GLUCOSE METER Routine 08/04/2018 7:59 Results for this AM CDT procedure are in the results section. CBC W/PLT COUNT & AUTO Routine 08/04/2018 5:44 Results for this DIFFERENTIAL AM CDT procedure are in the results section. TROPONIN I STAT 08/04/2018 5:44 Results for this AM CDT procedure are in the results section. PHOSPHORUS Routine 08/04/2018 5:44 Results for this AM CDT procedure are in the results section. COMPREHENSIVE METABOLIC Routine 08/04/2018 5:44 Results for this PANEL AM CDT procedure are in the results section. CALCIUM, IONIZED Routine 08/04/2018 5:44 Results for this AM CDT procedure are in the results section. CBC W/PLT COUNT & AUTO Routine 08/04/2018 5:44 Results for this DIFFERENTIAL AM CDT procedure are in the results section. MAGNESIUM Routine 08/04/2018 5:44 Results for this AM CDT procedure are in the results section. XR CHEST 1 VIEW Routine 08/04/2018 3:58 Results for this PORTABLE/BEDSIDE AM CDT procedure are in the results section. POCT-GLUCOSE METER Routine 08/03/2018 10:02 Results for this PM CDT procedure are in the results section. ECHOCARDIOGRAM REPORT - 08/03/2018 9:22 SCAN PM CDT POCT-GLUCOSE METER Routine 08/03/2018 6:00 Results for this PM CDT procedure are in the results section. POCT-GLUCOSE METER Routine 08/03/2018 11:54 Results for this AM CDT procedure are in the results section. LIMITED 2D RHETT 08/03/2018 11:17 Results for this ECHOCARDIOGRAM AM CDT procedure are in the results section. CREATINE KINASE (CK) Routine 08/03/2018 9:24 Results for this AM CDT procedure are in the results section. TROPONIN I Routine 08/03/2018 9:24 Results for this AM CDT procedure are in the results section. ECG 12-LEAD Routine 08/03/2018 8:00 AM CDT Procedure Note - Interface, External Ris In - 08/03/2018 8:07 AM CDT Ventricular Rate 96 BPM Atrial Rate 96 BPM P-R Interval 176 ms QRS Duration 110 ms Q-T Interval 390 ms QTC Calculation(Bazett) 492 ms P [place] 68 degrees R [place] 41 degrees T [place] 107 degrees Normal sinus rhythm Low voltage QRS Incomplete left bundle branch block Nonspecific ST and T wave abnormality Prolonged QT Abnormal ECG When compared with ECG of 02-AUG-2018 06:46, Incomplete left bundle branch block is now Present ECG 12-LEAD Routine 08/03/2018 8:00 AM CDT XR CHEST 1 VIEW Routine 08/03/2018 7:24 AM CDT Results for this PORTABLE/BEDSIDE procedure are in the results section. CBC W/PLT COUNT & AUTO Routine 08/03/2018 1:52 AM CDT Results for this DIFFERENTIAL procedure are in the results section. RETICULOCYTE COUNT Routine 08/03/2018 1:52 AM CDT PHOSPHORUS Routine 08/03/2018 1:52 AM CDT COMPREHENSIVE METABOLIC Routine 08/03/2018 1:52 AM CDT Results for this PANEL procedure are in the results section. CBC W/PLT COUNT & AUTO Routine 08/03/2018 1:52 AM CDT Results for this DIFFERENTIAL procedure are in the results section. MAGNESIUM Routine 08/03/2018 1:52 AM CDT IRON, TIBC, % SAT. (WITHOUT Routine 08/03/2018 1:51 AM CDT Results for this FERRITIN) procedure are in the results section. FERRITIN Routine 08/03/2018 1:51 AM CDT CALCIUM, IONIZED Routine 08/03/2018 1:51 AM CDT VITAMIN B12 AND FOLATE Routine 08/03/2018 1:51 AM CDT POCT-GLUCOSE METER Routine 08/03/2018 1:10 AM CDT POCT-GLUCOSE METER Routine 08/02/2018 8:37 PM CDT POCT-GLUCOSE METER Routine 08/02/2018 4:36 PM CDT POCT-GLUCOSE METER Routine 08/02/2018 12:01 PM CDT APTT STAT 08/02/2018 12:01 PM CDT POCT-GLUCOSE METER Routine 08/02/2018 11:06 AM CDT POCT-GLUCOSE METER Routine 08/02/2018 10:08 AM CDT POCT-GLUCOSE METER Routine 08/02/2018 9:11 AM CDT POCT-GLUCOSE METER Routine 08/02/2018 8:02 AM CDT APTT STAT 08/02/2018 8:02 AM CDT POCT-GLUCOSE METER Routine 08/02/2018 7:06 AM CDT ECG 12-LEAD Routine 08/02/2018 6:46 AM CDT Procedure Note - Interface, External Ris In - 08/02/2018 3:19 PM CDT Ventricular Rate 101 BPM Atrial Rate 101 BPM P-R Interval 184 ms QRS Duration 90 ms Q-T Interval 382 ms QTC Calculation(Bazett) 495 ms P [place] 80 degrees R [place] 60 degrees T [place] 61 degrees Sinus tachycardia Low voltage QRS Septal infarct (cited on or before 31-JUL-2018) Abnormal ECG When compared with ECG of 31-JUL-2018 22:17, ST now depressed in Inferior leads ECG 12-LEAD STAT 08/02/2018 6:46 AM Results for this CDT procedure are in the results section. US RENAL COMPLETE Routine 08/02/2018 5:48 AM Results for this CDT procedure are in the results section. APTT STAT 08/02/2018 4:11 AM Results for this CDT procedure are in the results section. CBC W/PLT COUNT & AUTO Routine 08/02/2018 3:52 AM Results for this DIFFERENTIAL CDT procedure are in the results section. HGB/HCT (H&H) - STAT STAT 08/02/2018 3:52 AM Results for this LAB CDT procedure are in the results section. GLUCOSE-STAT LAB STAT 08/02/2018 3:52 AM Results for this CDT procedure are in the results section. POTASSIUM-STAT LAB STAT 08/02/2018 3:52 AM Results for this CDT procedure are in the results section. SODIUM NA-STAT LAB STAT 08/02/2018 3:52 AM Results for this CDT procedure are in the results section. LACTIC ACID, ARTERIAL Routine 08/02/2018 3:52 AM Results for this CDT procedure are in the results section. BLOOD GAS, ARTERIAL Routine 08/02/2018 3:52 AM Results for this CDT procedure are in the results section. PHOSPHORUS Routine 08/02/2018 3:52 AM Results for this CDT procedure are in the results section. COMPREHENSIVE METABOLIC Routine 08/02/2018 3:52 AM Results for this PANEL CDT procedure are in the results section. CALCIUM, IONIZED Routine 08/02/2018 3:52 AM Results for this CDT procedure are in the results section. URIC ACID Routine 08/02/2018 3:52 AM Results for this CDT procedure are in the results section. B-TYPE NATRIURETIC Routine 08/02/2018 3:52 AM Results for this FACTOR (BNP) CDT procedure are in the results section. CBC W/PLT COUNT & AUTO Routine 08/02/2018 3:52 AM Results for this DIFFERENTIAL CDT procedure are in the results section. MAGNESIUM Routine 08/02/2018 3:52 AM Results for this CDT procedure are in the results section. XR CHEST 1 VIEW STAT 08/02/2018 3:45 AM Results for this PORTABLE/BEDSIDE CDT procedure are in the results section. HGB/HCT (H&H) - STAT STAT 08/01/2018 11:47 PM Results for this LAB CDT procedure are in the results section. GLUCOSE-STAT LAB STAT 08/01/2018 11:47 PM Results for this CDT procedure are in the results section. POTASSIUM-STAT LAB STAT 08/01/2018 11:47 PM Results for this CDT procedure are in the results section. SODIUM NA-STAT LAB STAT 08/01/2018 11:47 PM Results for this CDT procedure are in the results section. BLOOD GAS, ARTERIAL STAT 08/01/2018 11:47 PM Results for this CDT procedure are in the results section. LACTIC ACID, ARTERIAL STAT 08/01/2018 11:47 PM Results for this CDT procedure are in the results section. RRL CRITICAL LABS STAT 08/01/2018 11:47 PM Results for this (ABG,NA,K,H&H,GLUCOSE) CDT procedure are in the results section. PERIPHERAL VASCULAR 08/01/2018 9:23 PM REPORT - SCAN CDT APTT STAT 08/01/2018 9:22 PM Results for this CDT procedure are in the results section. ECHOCARDIOGRAM REPORT - 08/01/2018 9:21 PM SCAN CDT CALCIUM, IONIZED STAT 08/01/2018 7:07 PM Results for this CDT procedure are in the results section. HGB/HCT (H&H) - STAT STAT 08/01/2018 7:07 PM Results for this LAB CDT procedure are in the results section. GLUCOSE-STAT LAB STAT 08/01/2018 7:07 PM Results for this CDT procedure are in the results section. POTASSIUM-STAT LAB STAT 08/01/2018 7:07 PM Results for this CDT procedure are in the results section. SODIUM NA-STAT LAB STAT 08/01/2018 7:07 PM Results for this CDT procedure are in the results section. BLOOD GAS, ARTERIAL STAT 08/01/2018 7:07 PM Results for this CDT procedure are in the results section. RRL CRITICAL LABS STAT 08/01/2018 7:07 PM Results for this (ABG,NA,K,H&H,GLUCOSE) CDT procedure are in the results section. FIBRINOGEN Routine 08/01/2018 7:07 PM Results for this CDT procedure are in the results section. PT/APTT Routine 08/01/2018 7:07 PM Results for this CDT procedure are in the results section. OXYGEN SATURATION, Routine 08/01/2018 7:07 PM Results for this MEASURED CDT procedure are in the results section. LACTIC ACID, ARTERIAL Routine 08/01/2018 7:07 PM Results for this CDT procedure are in the results section. COMPREHENSIVE METABOLIC Routine 08/01/2018 7:07 PM Results for this PANEL CDT procedure are in the results section. CBC (HEMOGRAM ONLY) Routine 08/01/2018 7:07 PM Results for this CDT procedure are in the results section. ELECTROLYTE PANEL RHETT 08/01/2018 7:07 PM Results for this CDT procedure are in the results section. HEMOGLOBIN AND STAT 08/01/2018 4:16 PM Results for this HEMATOCRIT CDT procedure are in the results section. POCT-ACT Routine 08/01/2018 4:01 PM Results for this CDT procedure are in the results section. POCT-ACT Routine 08/01/2018 2:51 PM Results for this CDT procedure are in the results section. L CATH & PCI 08/01/2018 2:50 PM Non-STEMI (non-ST CDT elevated myocardial infarction) (HCC) POCT-GLUCOSE METER Routine 08/01/2018 12:15 PM Results for this CDT procedure are in the results section. POCT-GLUCOSE METER Routine 08/01/2018 8:10 AM Results for this CDT procedure are in the results section. PLATELET AGGREGATION: STAT 08/01/2018 8:04 AM Results for this FUNCTION SCREEN CDT procedure are in the results section. POCT-GLUCOSE METER Routine 08/01/2018 6:34 AM Results for this CDT procedure are in the results section. HEPATIC FUNCTION PANEL STAT 08/01/2018 5:25 AM Results for this CDT procedure are in the results section. MAGNESIUM Routine 08/01/2018 5:25 AM Results for this CDT procedure are in the results section. BASIC METABOLIC PANEL Routine 08/01/2018 5:25 AM Results for this (7) CDT procedure are in the results section. TROPONIN I STAT 08/01/2018 5:25 AM Results for this CDT procedure are in the results section. XR CHEST 1 VIEW Routine 08/01/2018 4:24 AM Results for this PORTABLE/BEDSIDE CDT procedure are in the results section. CBC W/PLT COUNT & AUTO Routine 08/01/2018 4:18 AM Results for this DIFFERENTIAL CDT procedure are in the results section. THROMBIN TIME Routine 08/01/2018 4:18 AM Results for this CDT procedure are in the results section. PROTHROMBIN TIME/INR Routine 08/01/2018 4:18 AM Results for this CDT procedure are in the results section. CBC W/PLT COUNT & AUTO Routine 08/01/2018 4:18 AM Results for this DIFFERENTIAL CDT procedure are in the results section. APTT Routine 08/01/2018 4:18 AM Results for this CDT procedure are in the results section. 2D ECHO W/ DOPPLER STAT 08/01/2018 2:05 AM Results for this (CW/PW/COLOR) CDT procedure are in the results section. CAROTID DOPPLER Routine 08/01/2018 1:11 AM Results for this BILATERAL CDT procedure are in the results section. XR CHEST 1 VIEW STAT 07/31/2018 11:56 PM Results for this PORTABLE/BEDSIDE CDT procedure are in the results section. ECG 12-LEAD RHETT 07/31/2018 10:17 PM Results for this CDT procedure are in the results section. XR CHEST 1 VIEW Routine 07/31/2018 8:40 PM Results for this PORTABLE/BEDSIDE CDT procedure are in the results section. CBC W/PLT COUNT & AUTO Routine 07/31/2018 8:12 PM Results for this DIFFERENTIAL CDT procedure are in the results section. APTT Routine 07/31/2018 8:12 PM Results for this CDT procedure are in the results section. PROTHROMBIN TIME/INR Routine 07/31/2018 8:12 PM Results for this CDT procedure are in the results section. CBC W/PLT COUNT & AUTO Routine 07/31/2018 8:12 PM Results for this DIFFERENTIAL CDT procedure are in the results section. B-TYPE NATRIURETIC Routine 07/31/2018 8:12 PM Results for this FACTOR (BNP) CDT procedure are in the results section. TROPONIN I STAT 07/31/2018 8:12 PM Results for this CDT procedure are in the results section. TSH/FREE T4 IF Routine 07/31/2018 8:12 PM Results for this INDICATED CDT procedure are in the results section. HEPATIC FUNCTION PANEL Routine 07/31/2018 8:12 PM Results for this CDT procedure are in the results section. BASIC METABOLIC PANEL Routine 07/31/2018 8:12 PM Results for this (7) CDT procedure are in the results section. ECG 12-LEAD STAT 07/31/2018 7:38 PM Results for this CDT procedure are in the results section. ECG 12-LEAD Routine 07/31/2018 7:38 PM CDT Procedure Note - Interface, External Ris In - 07/31/2018 7:42 PM CDT Ventricular Rate 66 BPM Atrial Rate 66 BPM P-R Interval 188 ms QRS Duration 96 ms Q-T Interval 448 ms QTC Calculation(Bazett) 469 ms P [place] 52 degrees R [place] 15 degrees T [place] 79 degrees Normal sinus rhythm Septal infarct , age undetermined Abnormal ECG No previous ECGs available after 08/19/2017 Results POC-Glucose meter (08/20/2018 12:04 PM CDT)Only the most recent of92 resultswithin the time period is included. POC-Glucose Meter 111 (H)Comment: TESTED AT 70 - 110 mg/dL [facility] [address] [facility] [address] Specimen Blood Performing Organization Address City/State/Zipcode Phone Number [address] [address] CENTER CBC with platelet count + automated diff (08/20/2018 9:27 AM CDT)Only the most recent of17 resultswithin the time period is included. WBC 4.7 3.5 - 10.5 K/L [facility] RBC 3.14 (L) 3.93 - 5.22 M/L [facility] Hemoglobin 10.1 (L) 11.2 - 15.7 GM/DL [facility] Hematocrit 34.0 (L) 34.1 - 44.9 % [facility] MCV 108.3 (H)Comment: 79.4 - 94.8 fL [facility] Discordant results [facility] compared to previous result; clinical correlation required. MCH 32.2 25.6 - 32.2 pg [facility] MCHC 29.7 (L) 32.2 - 35.5 GM/DL [facility] RDW 18.5 (H) 11.7 - 14.4 % [facility] Platelets 186 150 - 450 K/CU MM [facility] MPV 9.5 9.4 - 12.3 fL [facility] nRBC 0 0 - 0 /100 WBC [facility] % Neutros 67 % [facility] % Lymphs 14 % [facility] % Monos 14 % [facility] % Eos 3 % [facility] % Baso 1 % [facility] # Neutros 3.16 1.56 - 6.13 K/L [facility] # Lymphs 0.67 (L) 1.18 - 3.74 K/L [facility] # Monos 0.65 (H) 0.24 - 0.36 K/L [facility] # Eos 0.15 0.04 - 0.36 K/L [facility] # Baso 0.03 0.01 - 0.08 K/L [facility] Immature 1 0 - 1 % [facility] Granulocytes-[facility] Specimen Blood Performing Organization Address City/[facility]/Zipcode Phone Number [facility] [address] [place] [address] [phone] [place] Basic Metabolic Panel (08/20/2018 3:38 AM CDT)Only the most recent of17 resultswithin the time period is included. Sodium 136 136 - 145 meq/L [facility] Potassium 4.0 3.5 - 5.1 meq/L [facility] Chloride 100 98 - 107 meq/L [facility] CO2 26 22 - 29 meq/L [facility] BUN 55 (H) 7 - 21 mg/dL [facility] Creatinine 2.87 (H) 0.57 - 1.25 mg/dL [facility] Glucose 79 70 - 105 mg/dL [facility] Calcium 8.6 8.4 - 10.2 mg/dL [facility] EGFR 16Comment: ESTIMATED GFR IS mL/min/1.73 sq m [facility] NOT ACCURATE [facility] CLEARANCE IN PREDICTING GLOMERULAR FILTRATION RATE. ESTIMATED GFR IS NOT APPLICABLE FOR DIALYSIS PATIENTS. Specimen Blood Performing Organization Address [facility] Hospitalcode Phone Number [facility] [address] [place] [address] [phone] [place] [address] pelvis without IV contrast (08/16/2018 2:38 AM CDT) Specimen Narrative Performed At FINAL REPORT [employer] [facility] CT pelvis without contrast HISTORY: left groin/femoral wound infection COMPARISON: None Technique: serial axial imaging was performed without intravenous contrast as per departmental protocol.Multiplanar images are reconstructed and reviewed when indicated. This CT examination is performed using one or more of the following dose reduction techniques: Automated exposure control, adjustment of the mA and /or kV according to patient size, and/or use of iterative reconstruction technique. FINDINGS: The visualized small and large bowel loops demonstrate no apparent thickening or obstruction. The patient is status post hysterectomy. The urinary bladder demonstrates no definite wall thickening or intraluminal mass. No pelvic lymphadenopathy, free fluid, or hematoma is visualized. A small fat-containing umbilical hernia is noted. Soft tissue stranding is visualized within the left lower quadrant abdominal wall as well as within the bilateral inguinal regions, left greater than right. Overlying skin changes are present within the left inguinal region, consistent with the stated history of left inguinal wound. No organized/drainable fluid collection is visualized. Extensive, diffuse vascular calcifications. No aggressive osseous lesion is seen. IMPRESSION: Localized swelling within the subcutaneous fat of the bilateral inguinal regions (left greater than right) and left lower quadrant abdominal wall. No organized/drainable fluid collection. No findings of underlying osteomyelitis. Signed: Lucho Avery MD Report Verified Date/Time:08/16/2018 08:42:53 Reading Location: [facility] Radiology Reading Room Procedure Note Interface, External Ris In - 08/16/2018 8:45 AM CDT FINAL REPORT CT pelvis without contrast HISTORY: left groin/femoral wound infection COMPARISON: None Technique: serial axial imaging was performed without intravenous contrast as per departmental protocol. Multiplanar images are reconstructed and reviewed when indicated. This CT examination is performed using one or more of the following dose reduction techniques: Automated exposure control, adjustment of the mA and /or kV according to patient size, and/or use of iterative reconstruction technique. FINDINGS: The visualized small and large bowel loops demonstrate no apparent thickening or obstruction. The patient is status post hysterectomy. The urinary bladder demonstrates no definite wall thickening or intraluminal mass. No pelvic lymphadenopathy, free fluid, or hematoma is visualized. A small fat-containing umbilical hernia is noted. Soft tissue stranding is visualized within the left lower quadrant abdominal wall as well as within the bilateral inguinal regions, left greater than right. Overlying skin changes are present within the left inguinal region, consistent with the stated history of left inguinal wound. No organized/drainable fluid collection is visualized. Extensive, diffuse vascular calcifications. No aggressive osseous lesion is seen. IMPRESSION: Localized swelling within the subcutaneous fat of the bilateral inguinal regions (left greater than right) and left lower quadrant abdominal wall. No organized/drainable fluid collection. No findings of underlying osteomyelitis. Signed: Lucho Avery MD Report Verified Date/Time: 08/16/2018 08:42:53 Reading Location: [facility] Radiology Reading Room Performing Organization Address City/State/Zipcode Phone Number GE RIS ECHOCARDIOGRAM REPORT - SCAN (08/15/2018 9:12 PM CDT) Narrative Performed At Limited 2D Echocardiogram (08/15/2018 3:53 PM CDT) Ejection Fraction [facility] Specimen Narrative Performed At Transthoracic Echocardiography Report (TTE) [facility] Dem[facility] Patient NameCARRIHENRIQUE MOSES Date of Study08/15/2018 ESCOBDEO Gender Female Visit [id number] Race [id number] Number Date of 1940 Jaki Choe Physician Age 78 year(s) SonographerPretty Long RDCS Invasive Manager Amber Kaplan RDCS Interpreting Nat Pettit MD Procedure Type of Study TTE procedure:LIMITED 2D ECHOCARDIOGRAM (Routine) Indications:Shortness of breath and Eval EF Function. Clinical History Unstable angina, CKD Stage IV, IDDM, NSTEMI s/p Impella 08/01/18, L cath/PCI 08/01/18 HGB 8.7 HCT 27.2 % Contrast Medium: Definity. Amount - 2 ml Height: 61 inches Weight: 79.83 kg (176 lbs) BSA: 1.79 m^2 BMI: 33.25 kg/m^2 HR: 84 bpm BP: 112/47 mmHg Summary 1. The left ventricle is chamber size (by vol index) is moderately enlarged (female - LVED vol -71-80ml/m2) The following segment(s) appear severely hypokinetic: anterolateral and inferolateral. Beauchamp's method of disk assessment is [id number] reduced (30%) . 2. The right ventricular chamber size and systolic function are within normal limits. Previous Study Compared to the previous study there was no significant change. Signature Findings Technical Quality: Technically adequate exam. Left Limited 2D exam (no Doppler) to address study indication. VentricleLV endocardium is adequately visualized with IV ultrasound enhancing agent. The left ventricle is chamber size (by vol index) is moderately enlarged (female - LVED vol -71-80ml/m2). Rvatwksm-yf-ftoslu concentric LV hypertrophy. Global LV systolic function uuxjjdkv-ay-yuccxvxo reduced . LVEF by Beauchamp's method of disk assessment is xtuwgdgeyg-lv-ecdjyp reduced (30%) . The following segment(s) appear severely hypokinetic: anterolateral and inferolateral. The other segments are hypokinetic. Left AtriumLA is incompletely visualized, size based on linear measurement. LA size is mildly enlarged . RightThe right ventricular chamber size and systolic function are Ventriclewithin normal limits. Right Atrium RA size is normal. Aortic Valve The aortic valve is not well visualized. Mitral Valve Mild MV leaflet calcification. TricuspidTV structure is normal. Valve Pulmonic PV is not well visualized. Valve AortaAortic root size (SInus of Valsalva diameter) is normal . PericardiumNo pericardial effusion is visualized. Chambers/Structures Left Ventricle LVIDd: 4.57 cm LVEDV:95.67 ml LV Septum Diastolic: 1.59 cm LV PW Diastolic: 1.63 cm LVEDV Beauchamp's:137.8 ml LVESV Beauchamp's:96.45 ml LVEF Beauchamp's: 30 % LVEDVI: 77 ml/m^2 LVESVI: 54 ml/m^2 Procedure Note Interface, External Ris In - 08/15/2018 6:48 PM CDT Transthoracic Echocardiography Report (TTE) Demographics Patient Name HENRIQUE ARECHIGA Date of Study 08/15/2018 DUKEDEO Gender Female Visit Number [id number] Race Room Number [id number] Number Date of 1940 Referring Peyton Choe Physician Age 78 year(s) Grading Supervisor Pretty Long [facility] Invasive Manager Amber Kaplan [facility] Interpreting Nat Pettit MD Procedure Type of Study TTE procedure:LIMITED 2D ECHOCARDIOGRAM (Routine) Indications:Shortness of breath and Eval EF Function. Clinical History Unstable angina, CKD Stage IV, IDDM, NSTEMI s/p Impella 08/01/18, L cath/PCI 08/01/18 HGB 8.7 HCT 27.2 % Contrast Medium: Definity. Amount - 2 ml Height: 61 inches Weight: 79.83 kg (176 lbs) BSA: 1.79 m^2 BMI: 33.25 kg/m^2 HR: 84 bpm BP: 112/47 mmHg Summary 1. The left ventricle is chamber size (by vol index) is moderately enlarged (female - LVED vol -71-80ml/m2) The following segment(s) appear severely hypokinetic: anterolateral and inferolateral. Beauchamp's method of disk assessment is kqptzndknb-jg-orktee reduced (30%) . 2. The right ventricular chamber size and systolic function are within normal limits. Previous Study Compared to the previous study there was no significant change. Signature Findings Technical Quality: Technically adequate exam. Left Limited 2D exam (no Doppler) to address study indication. Ventricle LV endocardium is adequately visualized with IV ultrasound enhancing agent. The left ventricle is chamber size (by vol index) is moderately enlarged (female - LVED vol -71-80ml/m2). Hhexcgjg-ia-quydgm concentric LV hypertrophy. Global LV systolic function pfhalmoe-tu-ifvjbatm reduced . LVEF by Beauchamp's method of disk assessment is ykmcqhxvcj-re-srtzzh reduced (30%) . The following segment(s) appear severely hypokinetic: anterolateral and inferolateral. The other segments are hypokinetic. Left Atrium LA is incompletely visualized, size based on linear measurement. LA size is mildly enlarged . Right The right ventricular chamber size and systolic function are Ventricle within normal limits. Right Atrium RA size is normal. Aortic Valve The aortic valve is not well visualized. Mitral Valve Mild MV leaflet calcification. Tricuspid TV structure is normal. Valve Pulmonic PV is not well visualized. Valve Aorta Aortic root size (SInus of Valsalva diameter) is normal . Pericardium No pericardial effusion is visualized. Chambers/Structures Left Ventricle LVIDd: 4.57 cm LVEDV:95.67 ml LV Septum Diastolic: 1.59 cm LV PW Diastolic: 1.63 cm LVEDV Beauchamp's:137.8 ml LVESV Beauchamp's:96.45 ml LVEF Beauchamp's: 30 % LVEDVI: 77 ml/m^2 LVESVI: 54 ml/m^2 Performing Organization Address City/State/Zipcode Phone Number [facility] Urinalysis w/Microscopic + Reflex to Culture (08/14/2018 10:53 AM CDT)Only the most recent of2 resultswithin the time period is included. Color, UA Light Yellow [facility] Clarity, UA Hazy [facility] Specific [place], UA 1.009 1.001 - 1.035 [facility] pH, UA 6.0 5.0 - 8.0 [facility] Protein, UA 30 mg/dL (A) Negative [facility] Glucose, UA Negative Negative [facility] Ketones, UA Negative Negative [facility] Bilirubin, UA Negative Negative [facility] Blood, UA Small (A) Negative [facility] Nitrite, UA Negative Negative [facility] Leukocytes, UA Large (A) Negative [facility] Urobilinogen, UA 0.2 0.2 - 1.0 mg/dL [facility] RBC, UA 0 /HPF [facility] WBC, UA >182 /HPF [facility] Bacteria, UA Many [facility] Squam Epithel, UA <1 /HPF [facility] Renal Epithelial 15 /HPF [facility] WBC Casts 14 /LPF [facility] Specimen Source [facility] Specimen Urine Performing Organization Address City/State/Zipcode Phone Number [facility] [address] [place] [address] CENTER Urine culture (08/14/2018 10:53 AM CDT)Only the most recent of2 resultswithin the time period is included. Result >100,000 col/mL Raoultella [facility] ornithinolytica (A) [facility] [place] Gram Stain Result 4+ gram negative rods [facility] Gram Stain Result 4+ WBCs [facility] Specimen Urine Organism Antibiotic Method Susceptibility Raoultella ornithinolytica Amikacin <=2: Susceptible Raoultella ornithinolytica Ampicillin + Sulbactam >=32: Resistant [place]tella ornithinolytica Aztreonam >=64: Resistant [place]tella ornithinolytica Cefepime >=64: Resistant [place] ornithinolytica Cefoxitin <=4: Susceptible [place]tella ornithinolytica Ceftazidime >=64: Resistant [place]ella ornithinolytica Ceftriaxone >=64: Resistant [place]ella ornithinolytica Ertapenem <=0.5: Susceptible [place]ella ornithinolytica Gentamicin >=16: Resistant [facility] ornithinolytica Levofloxacin 1: Resistant [facility]tella ornithinolytica Meropenem <=0.25: Susceptible Raoultella ornithinolytica Nitrofurantoin 32: Susceptible Raoultella ornithinolytica Piperacillin + Tazobactam >=128: Resistant [facility]ella ornithinolytica Tetracycline <=1: Susceptible [facility]tella ornithinolytica Tobramycin >=16: Resistant Raoultella ornithinolytica Trimethoprim + Sulfamethoxazole >=320: Resistant Performing Organization Address City/State/Zipcode Phone Number [facility] [address] [place] [address] [phone] CENTER Respiratory Panel HS (08/14/2018 10:18 AM CDT) Human Metapneumovirus Not detected Not detected, [facility] Rhinovirus Not detected Not detected, [facility] Equivocal [facility] Influenza A Not detected Not detected, [facility] INFLUENZA A (NO SUBTYPE) Not detected, [facility] Influenza A subtype H1 Not detected, [facility] Equivocal [facility] Influenza A Subtype H3 Not detected, [facility] Influenza A Subtype H1-2009 Not detected, [facility] Influenza B Not detected Not detected, [facility] Respiratory Syncytial Virus Not detected Not detected, [facility] Parainfluenza Virus 1 Not detected Not detected, [facility] Parainfluenza Virus 2 Not detected Not detected, [facility] Parainfluenza virus 3 Not detected Not detected, [facility] Parainfluenza Virus 4 Not detected Not detected, [facility] Adenovirus Not detected Not detected, [facility] Coronavirus 229E Not detected Not detected, [facility] Coronavirus HKU1 Not detected Not detected, [facility] Coronavirus NL63 Not detected Not detected, [facility] Coronavirus OC43 Not detected Not detected, [facility] Bordetella Pertussis Not detected Not detected, [facility] Chlamydophila Pneumoniae Not detected Not detected, [facility] Mycoplasma Pneumoniae Not detected Not detected, [facility] Specimen Nasopharyngeal Narrative Performed At Other viruses and bacteria not targeted by [facility] this PCR panel cannot be excluded; therefore clinical correlation and follow up of serology, culture results, and other molecular studies is required. The results are not intended to be used as the sole means for clinical diagnosis or patient management decisions. This sample was tested at the [facility] Molecular Diagnostics Laboratory using the [employer] FilmArray Respiratory Panel. It is FDA cleared and has been verified and approved by the [facility] Molecular Diagnostics Laboratory for clinical use on nasopharyngeal swab specimens. The performance of the FilmArray RP has not been established in individuals who received influenza vaccine.Recent administration of a nasal influenza vaccine may cause false positive results for Influenza A and/or Influenza B. Performing Organization Address City/State/Zipcode Phone Number [place] [phone] [place] [address] CENTER XR chest 1 view portable / bedside (08/14/2018 9:13 AM CDT)Only the most recent of18 resultswithin the time period is included. Specimen Narrative Performed At FINAL REPORT GE RIS CLINICAL HISTORY: cough TECHNIQUE: 1 view of the chest. COMPARISON: 08/12/2018 IMPRESSION: Mild lung base pleural-parenchymal opacity is again seen. There is minimal right lung base opacity and blunting of the right costophrenic angle. The cardiomediastinal silhouette is magnified by technique. Cervical fusion hardware is partially imaged. Signed: Su Delarosa MD Report Verified Date/Time:08/14/2018 09:50:21 Reading Location: [facility] Radiology Reading Room Procedure Note Interface, External Ris In - 08/14/2018 9:52 AM CDT FINAL REPORT CLINICAL HISTORY: cough TECHNIQUE: 1 view of the chest. COMPARISON: 08/12/2018 IMPRESSION: Mild lung base pleural-parenchymal opacity is again seen. There is minimal right lung base opacity and blunting of the right costophrenic angle. The cardiomediastinal silhouette is magnified by technique. Cervical fusion hardware is partially imaged. Signed: Su Delarosa MD Report Verified Date/Time: 08/14/2018 09:50:21 Reading Location: [facility] Reading Room Performing Organization Address City/State/Zipcode Phone Number GE RIS Manual Differential (08/14/2018 5:57 AM CDT)Only the most recent of2 resultswithin the time period is included. % Neutros 86 % [facility] % Lymphs 4 % [facility] % Monos 5 % [facility] % Eos 2 % [facility] % Metamyelo 2 (H) 0 - 0 % [facility] % Myelo 1 (H) 0 - 0 % [facility] # Neutros 9.98 (H) 1.56 - 6.13 K/ul [facility] # Lymphs 0.46 (L) 1.18 - 3.74 K/ul [facility] # Monos 0.58 (H) 0.24 - 0.36 K/uL [facility] # Eos 0.23 0.04 - 0.36 K/uL [facility] # Metamyelo 0.23 (H) 0.00 - 0.00 K/uL [facility] # Myelo 0.12 (H) 0.00 - 0.00 K/uL [facility] Total Counted 100 [facility] nRBC (manual) 1 (H) 0 - 0 /100 WBC [facility] WBC Morphology Normal [facility] Platelet Morphology Normal [facility] Polychromasia 1+ few [facility] Hypochromia 1+ few [facility] Artifact Present [facility] Platelet Conc Adequate [facility] Specimen Blood Narrative Performed At Received comment: [facility] User comments: Slide comments: Performing Organization Address City/State/[facility] Phone Number [address] [address] [phone] [place] Calcium, Ionized (08/14/2018 5:57 AM CDT)Only the most recent of8 resultswithin the time period is included. Calcium, Ion 1.04 (L) 1.12 - 1.27 mmol/L [facility] pH, Blood 7.38 [facility] Specimen Blood Performing Organization Address [facility] Phone Number [address] [address] [place] Phosphorus (08/14/2018 5:57 AM CDT)Only the most recent of7 resultswithin the time period is included. Phosphorus 2.3 2.3 - 4.7 mg/dL [facility] Specimen Blood Performing Organization Address City/[facility] Hospital[facility] Phone Number [address] [address] CENTER Magnesium (08/14/2018 5:57 AM CDT)Only the most recent of16 resultswithin the time period is included. Magnesium 2.0 1.6 - 2.6 mg/dL [facility] Specimen Blood Performing Organization Address [facility] Hospital[facility] Phone Number [address] [address] [place] Comprehensive metabolic panel (08/14/2018 5:57 AM CDT)Only the most recent of8 resultswithin the time period is included. Protein, Total 5.5 (L) 6.0 - 8.3 gm/dL [facility] Albumin 3.1 (L) 3.5 - 5.0 g/dL [facility] Alkaline Phosphatase 67 40 - 150 U/L [facility] Total Bilirubin 0.6 0.2 - 1.2 mg/dL [facility] Sodium 135 (L) 136 - 145 meq/L [facility] Potassium 3.8 3.5 - 5.1 meq/L [facility] Chloride 99 98 - 107 meq/L [facility] CO2 27 22 - 29 meq/L [facility] BUN 45 (H) 7 - 21 mg/dL [facility] Creatinine 3.56 (H) 0.57 - 1.25 mg/dL [facility] Glucose 116 (H) 70 - 105 mg/dL [facility] Calcium 8.5 8.4 - 10.2 mg/dL [facility] AST 30 5 - 34 U/L [facility] ALT 18 6 - 55 U/L [facility] EGFR 12Comment: ESTIMATED GFR mL/min/1.73 sq m [facility] IS NOT ACCURATE [facility] CREATININE CLEARANCE IN PREDICTING GLOMERULAR FILTRATION RATE. ESTIMATED GFR IS NOT APPLICABLE FOR DIALYSIS PATIENTS. Specimen Blood Performing Organization Address City/State/Zipcode Phone Number [facility] [address] [place] [address] [phone] CENTER Blood gas, arterial (08/10/2018 2:27 PM CDT)Only the most recent of4 resultswithin the time period is included. pH, Arterial 7.44 7.35 - 7.45 [facility] pCO2, Arterial 38 35 - 45 mmHg [facility] pO2, Arterial 165 (H) 80 - 90 mmHg [facility] O2 Sat, Arterial 99.2 (H) 96.0 - 97.0 % [facility] HCO3, Arterial 26 21 - 29 mmol/L [facility] Base Excess, Arterial 1.1 -2.0 - 3.0 mmol/L [facility] Patient Temperature 36.4 C [facility] FIO2 44.0 % [facility] Specimen Blood, Arterial Performing Organization Address City/[facility] Phone Number [address] [address] [place] Lactic Acid, Arterial (08/10/2018 2:26 PM CDT)Only the most recent of4 resultswithin the time period is included. Lactate, Art 0.9 0.5 - 2.2 mmol/L [facility] Specimen Blood, Arterial Performing Organization Address [facility] Phone Number [address] [address] [place] POC ACTIVATED CLOTTING TIME (08/07/2018 6:55 PM CDT)Only the most recent of6 resultswithin the time period is included. Activated Clotting Time 268Comment: TESTED AT sec [place] [id number] Specimen Blood Performing Organization Address [facility] [place] [address] [place] ECHOCARDIOGRAM REPORT - SCAN (08/06/2018 9:21 PM CDT) Narrative Performed At 2D Echo W/Doppler(CW/PW/Color) (08/06/2018 10:34 AM CDT) Ejection Fraction [facility]CHO [facility] Specimen Narrative Performed At Transthoracic Echocardiography Report (TTE) [facility] Demographics Patient NameCARRILLOHENRIQUE Date of Study08/06/2018 ESCOBDEO Gender Female Visit [id number] Race [id number] Number Date of 1940 [facility] Choe Physician Age 78 year(s) SonographerPretty Long [facility] Invasive Manager Amber Kaplan [facility] Interpreting Physician XIMENA Cormier Procedure Type of Study TTE procedure:LIMITED 2D ECHOCARDIOGRAM (Routine) Indications:Acute Chest Pain/ Suspected CAD. Clinical History Unstable angina, CKD Stg IV, IDDM, NSTEMI s/p Impella 08/01/18, L cath/PCI 08/01/18 HGB 9.1 HCT 27.9 % Contrast Medium: Definity. Amount - 2 ml Height: 61 inches Weight: 79.83 kg (176 lbs) BSA: 1.79 m^2 BMI: 33.25 kg/m^2 HR: 107 bpm BP: 133/67 mmHg Summary Limited 2D exam and Doppler exam to address study indication. The left ventricle is chamber size (by vol index) is mildly enlarged (female - LVED 62-70ml/m2). Mild concentric LV hypertrophy. LV segments are hypokinetic. Estimated LVEF by qualitative assessment is moderately to severely reduced (30%) . Degree of diastolic dysfunction (LAP assessment) is inconclusive due to tachycardia and limited imaging. No pericardial effusion is visualized. Previous Study Compared to the previous study 07/31/2018 LV systolic function appears reduced. Signature Findings Technical Quality: Technically adequate exam. Rhythm/BPSinus tachycardia during the exam. Left Ventricle Limited 2D exam and Doppler exam to address study in dication. LV endocardium is adequately visualized wi th IV ultrasound enhancing agent. The left ve ntricle is chamber size (by vol index) is mildly en larged (female - LVED 62-70ml/m2). Mild co ncentric LV hypertrophy. LV segments are hy pokinetic. Estimated LVEF by qualitative as sessment is moderately to severely reduced (30%) . Degree of diastolic dysfunction (LAP assessment) is inconclusive due to tachycardia and limited im aging. Left AtriumLA size is moderately enlarged (42-48 ml/m2) . Right VentricleThe right ventricular chamber size and systolic fu nction are within normal limits. Right Atrium RA cavity size is normal . Aortic Valve Mild AoV cusp thickening. Ao V cusp mobility is normal . Mitral Valve Mild mitral annular calcification. Mi ld MV leaflet thickening. Mi ld mitral regurgitation. Tricuspid ValveThe tricuspid valve is not well visualized. Un able to estimate peak systolic PA pressure; in adequate TR velocity signal. Pulmonic Valve PV is not visualized. AortaAortic root size (SInus of Valsalva diameter) is no rmal . PericardiumNo pericardial effusion is visualized. IVC/SVC/PA/PV/PleuralThe estimated RA pressure by IVC dynamics in determinate . Th e inferior vena cava is not visualized. Chambers/Structures Left Atrium LA Volume: 79.64 ml LA Area: 23.34 cm^2 LA Vol. Index: 44 ml/m^2 Left Ventricle LVIDd: 5.11 cm LVIDs: 4.26 cm LV Septum Diastolic: 1.25 cm LV PW Diastolic: 1.23 cmLV FS: 16.6 % LVEDV Beauchamp's:116.97 ml LVESV Beauchamp's:82.3 ml LVEDVI: 65 ml/m^2 LVEF Beauchamp's: 29.6 %LVESV I: 46 ml/m^2 LVOT Diameter: 1.89 cm Aorta Ao Root S of Mary [place].: 2.83 cm Doppler/Quantitative Measurements LVOT LVOT Diameter: 1.89 cm LVOT Area: 2.81 cm^2 Procedure Note Interface, External Ris In - 08/06/2018 12:29 PM CDT Transthoracic Echocardiography Report (TTE) Demographics Patient Name HENRIQUE ARECHIGA Date of Study 08/06/2018 ESCOBDEO Gender Female Visit Number [id number] Race Room Number [id number] Number Date of 1940 Referring [facility] Physician Age 78 year(s) Grading Supervisor Pretty Long [facility] Invasive Manager Amber Kaplan [facility] Interpreting Physician XIMENA Cormier Procedure Type of Study TTE procedure:LIMITED 2D ECHOCARDIOGRAM (Routine) Indications:Acute Chest Pain/ Suspected CAD. Clinical History Unstable angina, CKD Stg IV, IDDM, NSTEMI s/p Impella 08/01/18, L cath/PCI 08/01/18 HGB 9.1 HCT 27.9 % Contrast Medium: Definity. Amount - 2 ml Height: 61 inches Weight: 79.83 kg (176 lbs) BSA: 1.79 m^2 BMI: 33.25 kg/m^2 HR: 107 bpm BP: 133/67 mmHg Summary Limited 2D exam and Doppler exam to address study indication. The left ventricle is chamber size (by vol index) is mildly enlarged (female - LVED 62-70ml/m2). Mild concentric LV hypertrophy. LV segments are hypokinetic. Estimated LVEF by qualitative assessment is moderately to severely reduced (30%) . Degree of diastolic dysfunction (LAP assessment) is inconclusive due to tachycardia and limited imaging. No pericardial effusion is visualized. Previous Study Compared to the previous study 07/31/2018 LV systolic function appears reduced. Signature Findings Technical Quality: Technically adequate exam. Rhythm/BP Sinus tachycardia during the exam. Left Ventricle Limited 2D exam and Doppler exam to address study indication. LV endocardium is adequately visualized with IV ultrasound enhancing agent. The left ventricle is chamber size (by vol index) is mildly enlarged (female - LVED 62-70ml/m2). Mild concentric LV hypertrophy. LV segments are hypokinetic. Estimated LVEF by qualitative assessment is moderately to severely reduced (30%) . Degree of diastolic dysfunction (LAP assessment) is inconclusive due to tachycardia and limited imaging. Left Atrium LA size is moderately enlarged (42-48 ml/m2) . Right Ventricle The right ventricular chamber size and systolic function are within normal limits. Right Atrium RA cavity size is normal . Aortic Valve Mild AoV cusp thickening. AoV cusp mobility is normal . Mitral Valve Mild mitral annular calcification. Mild MV leaflet thickening. Mild mitral regurgitation. Tricuspid Valve The tricuspid valve is not well visualized. Unable to estimate peak systolic PA pressure; inadequate TR velocity signal. Pulmonic Valve PV is not visualized. Aorta Aortic root size (SInus of Valsalva diameter) is normal . Pericardium No pericardial effusion is visualized. IVC/SVC/PA/PV/Pleural The estimated RA pressure by IVC dynamics indeterminate . The inferior vena cava is not visualized. Chambers/Structures Left Atrium LA Volume: 79.64 ml LA Area: 23.34 cm^2 LA Vol. Index: 44 ml/m^2 Left Ventricle LVIDd: 5.11 cm LVIDs: 4.26 cm LV Septum Diastolic: 1.25 cm LV PW Diastolic: 1.23 cm LV FS: 16.6 % LVEDV Beauchamp's:116.97 ml LVESV Beauchamp's:82.3 ml LVEDVI: 65 ml/m^2 LVEF Beauchamp's: 29.6 % LVESVI: 46 ml/m^2 LVOT Diameter: 1.89 cm Aorta Ao Root S of Mary [place].: 2.83 cm Doppler/Quantitative Measurements LVOT LVOT Diameter: 1.89 cm LVOT Area: 2.81 cm^2 Performing Organization Address City/State/[facility] Phone Number [facility] aPTT (08/06/2018 4:03 AM CDT)Only the most recent of7 resultswithin the time period is included. PTT 45.7 (H) 22.5 - 36.0 seconds [facility] Specimen Blood Narrative Performed At 4 hours after the start of continuous [facility] infusion and 4 hours after any rate change Performing Organization Address City/[facility] Phone Number [facility] [address] [phone] CENTER Clostridium difficile [facility] Toxin (08/04/2018 9:51 AM CDT) C. Difficle Toxin Negative Negative [facility] C. Difficile [facility] Antigen Positive (A)Comment: C. Negative [facility] difficile present but toxin [facility] not detected. Indicates colonization with non-toxigenic strain or level of toxin below detectable levels. No need for enteric isolation. Treatment is rarely needed (only when strong clinical suspicion for Clostridium difficile infection) Specimen Stool Narrative Performed At Testing performed by [employer] [facility] Assay.For GDH, published sensitivity of the assay is 98.7% compared to cytotoxicity testing.For Toxin AB, published sensitivity is 87.8% and specificity 99.4% compared to cytotoxicity testing. Verification of kit performance was done by the [facility] Microbiology Lab prior to clinical use. Performing Organization Address City/State/Zipcode Phone Number [address] [address] [place] Occult blood, stool (08/04/2018 9:51 AM CDT) Occult blood Positive (A) Negative [facility] Specimen Stool Performing Organization Address City/[facility] Phone Number [address] [address] [place] Troponin I (08/04/2018 5:44 AM CDT)Only the most recent of4 resultswithin the time period is included. Troponin I 44.85 (HH) 0.00 - 0.03 ng/mL [facility] Specimen Blood Narrative Performed At Troponin I (TnI) levels must be interpreted [facility] in the context of the presenting symptoms and the clinical findings. Elevated TnI levels indicate myocardial damage, but are not specific for ischemic heart disease. Elevated TnI levels are seen in patients with other cardiac conditions (including myocarditis and congestive heart failure), and slight TnI elevations occur in patients with other conditions, including sepsis, renal failure, acidosis, acute neurological disease, and persistent tachyarrhythmia. Performing Organization Address City/State/Zipcode Phone Number [facility] [address] [place] [address] CENTER ECHOCARDIOGRAM REPORT - SCAN (08/03/2018 9:22 PM CDT) Narrative Performed At Limited 2D Echocardiogram (08/03/2018 11:17 AM CDT) Ejection Fraction [facility] ECHO HEARTLAB [facility] Specimen Narrative Performed At Transthoracic Echocardiography Report (TTE) [facility] ECHO HEARTLAB [facility] Demographics Patient NameCARRILLO, ENEDELIADate of Study08/03/2018 ESCOBDEO Female Visit [id number] Room [id number] Number Date of 1Referring Peyton Choe Physician Age 78 year(s)Grading Supervisor Cheryl Phan [facility] Invasive Manager Nader Finley Interpreting Physician AurelianoMD Procedure Type of Study TTE procedure:LIMITED 2D ECHOCARDIOGRAM (RHETT) Indications:Eval EF Function. Clinical History CKD, DM, NSTEMI 08/01/18 PCI HGB 10.4 HCT 32.5 % Contrast Medium: Definity. Amount - 2 ml Height: 61 inches Weight: 79.83 kg (176 lbs) BSA: 1.79 m^2 BMI: 33.25 kg/m^2 HR: 92 bpm BP: 114/52 mmHg Summary Limited study to assess LV function. 1. Normal LV size. LV function appears moderately reduced. LVEF is 36.5% 2. Diastology: Not evaluated 3. Normal RV size and function 4. No significant valvular heart disease 5. Unable to estimate PASP 6. No pericardial effusion Previous Study No previous study available for comparison Signature Findings Left Ventricle LV endocardium is adequately visualized with IV ul trasound enhancing agent. The left ventricle is ch jonas size (by vol index) is normal (female - LV ED vol - 29-61ml/m2). Mild concentric LV hy pertrophy. The following segment(s) appear hy pokinetic: anterolateral, inferolateral and mid to apical anterior wall. . The other segments co ntract normally. Global LV systolic function lo wer limits of normal . Estimated LVEF by qu alitative assessment is moderately reduced (36%) Left AtriumLA size is mildly enlarged . Right VentricleNormal right ventricle structure and function. Right Atrium Normal right atrium. Aortic Valve Mild AoV cusp thickening. Mitral Valve Mild MV leaflet thickening. Mild mitral annular ca lcification. Tricuspid ValveUnable to estimate peak systolic PA pressure; in adequate TR velocity signal. Pulmonic Valve PV is not well visualized. AortaAortic root size (SInus of Valsalva diameter) is no rmal . PericardiumNo evidence of pericardial effusion. IVC/SVC/PA/PV/PleuralThe estimated RA pressure by IVC dynamics 5-10mmHg . Chambers/Structures Left Atrium LA Dimension: 3.61 cmLA Area: 20.74 cm^2 LA Volume: 62.88 ml LA Vol. Index: 35 ml/m^2 Left Ventricle LVIDd: 4.3 cm LV Septum Diastolic: 1.13 cm LV PW Diastolic: 1.12 cm LVEDV Beauchamp's:88.77 ml LVESV Beauchamp's:48.09 ml LVEF Beauchamp's: 45.8 %LVEDV I: 50 ml/m^2 LVESVI: 27 ml/m^2 Aorta Ao Root S of Mary Ellen.: 3.1 cm Procedure Note Interface, External Ris In - 08/03/2018 5:54 PM CDT Transthoracic Echocardiography Report (TTE) Demographics Patient Name HENRIQUE ARECHIGA Date of Study 08/03/2018 ESCOBDEO Gender Female Visit Number [id number] Race Room Number [id number] Number Date of 1940 Referring Peyton Choe Physician Age 78 year(s) Grading Supervisor Cheryl Phan, [facility] Invasive Manager Nader Finley Interpreting Physician XIMENA Bedoya Procedure Type of Study TTE procedure:LIMITED 2D ECHOCARDIOGRAM (RHETT) Indications:Eval EF Function. Clinical History CKD, DM, NSTEMI 08/01/18 PCI HGB 10.4 HCT 32.5 % Contrast Medium: Definity. Amount - 2 ml Height: 61 inches Weight: 79.83 kg (176 lbs) BSA: 1.79 m^2 BMI: 33.25 kg/m^2 HR: 92 bpm BP: 114/52 mmHg Summary Limited study to assess LV function. 1. Normal LV size. LV function appears moderately reduced. LVEF is 36.5% 2. Diastology: Not evaluated 3. Normal RV size and function 4. No significant valvular heart disease 5. Unable to estimate PASP 6. No pericardial effusion Previous Study No previous study available for comparison Signature Findings Left Ventricle LV endocardium is adequately visualized with IV ultrasound enhancing agent. The left ventricle is chamber size (by vol index) is normal (female - LVED vol - 29-61ml/m2). Mild concentric LV hypertrophy. The following segment(s) appear hypokinetic: anterolateral, inferolateral and mid to apical anterior wall. . The other segments contract normally. Global LV systolic function lower limits of normal . Estimated LVEF by qualitative assessment is moderately reduced (36%) Left Atrium LA size is mildly enlarged . Right Ventricle Normal right ventricle structure and function. Right Atrium Normal right atrium. Aortic Valve Mild AoV cusp thickening. Mitral Valve Mild MV leaflet thickening. Mild mitral annular calcification. Tricuspid Valve Unable to estimate peak systolic PA pressure; inadequate TR velocity signal. Pulmonic Valve PV is not well visualized. Aorta Aortic root size (SInus of Valsalva diameter) is normal . Pericardium No evidence of pericardial effusion. IVC/SVC/PA/PV/Pleural The estimated RA pressure by IVC dynamics 5-10mmHg . Chambers/Structures Left Atrium LA Dimension: 3.61 cm LA Area: 20.74 cm^2 LA Volume: 62.88 ml LA Vol. Index: 35 ml/m^2 Left Ventricle LVIDd: 4.3 cm LV Septum Diastolic: 1.13 cm LV PW Diastolic: 1.12 cm LVEDV Beauchamp's:88.77 ml LVESV Beauchamp's:48.09 ml LVEF Beauchamp's: 45.8 % LVEDVI: 50 ml/m^2 LVESVI: 27 ml/m^2 Aorta Ao Root S of Mary Ellen.: 3.1 cm Performing Organization Address City/[facility] Phone Number [facility] ECHO HEARTLAB [facility] Creatine Kinase (CK) (08/03/2018 9:24 AM CDT) Total CK 601 (H) 29 - 200 U/L [facility] Specimen Blood Performing Organization Address [facility] Phone Number [facility] [address] [place] [address] [phone] CENTER ECG 12 lead (08/03/2018 8:00 AM CDT)Only the most recent of4 resultswithin the time period is included. Specimen Narrative Performed At Ventricular Rate 96 BPM GE MUSE Atrial Rate 96 BPM P-R Interval 176 ms QRS Duration 110 ms Q-T Interval 390 ms QTC Calculation(Bazett) 492 ms P [place] 68 degrees R [place] 41 degrees T [place] 107 degrees Normal sinus rhythm Low voltage QRS Incomplete left bundle branch block Mild ST elevation with T wave inversion in aVL ST depression inferior and anterolateral leads consider subendocardial ischemia Prolonged QT Abnormal ECG When compared with ECG of 02-AUG-2018 06:46, No significant changes Confirmed by MD JORGE, MATHEUS ([id number]) on 08/06/2018 6:32:30 AM Procedure Note Interface, External Ris In - 08/06/2018 6:32 AM CDT Ventricular Rate 96 BPM Atrial Rate 96 BPM P-R Interval 176 ms QRS Duration 110 ms Q-T Interval 390 ms QTC Calculation(Bazett) 492 ms P [place] 68 degrees R [place] 41 degrees T [place] 107 degrees Normal sinus rhythm Low voltage QRS Incomplete left bundle branch block Mild ST elevation with T wave inversion in aVL ST depression inferior and anterolateral leads consider subendocardial ischemia Prolonged QT Abnormal ECG When compared with ECG of 02-AUG-2018 06:46, No significant changes Confirmed by MD JORGE, MATHEUS ([id number]) on 08/06/2018 6:32:30 AM Performing Organization Address [facility] Phone Number GE MUSE Reticulocyte count (08/03/2018 1:52 AM CDT) % Retic 2.7 (H) 0.5 - 1.7 % [facility] Specimen Blood Performing Organization Address [facility] Phone Number [address] [address] [phone] CENTER Vitamin B12 and Folate (08/03/2018 1:51 AM CDT) Vitamin B12 212 (L) 213 - 816 pg/mL [facility] Folate 15.1 >=7.0 ng/mL [facility] Specimen Blood Performing Organization Address [facility] Phone Number [address] [address] CENTER Iron, TIBC, % sat. (without ferritin) (08/03/2018 1:51 AM CDT) Iron 27.0 (L) 40.0 - 160.0 ug/dL [facility] TIBC 221 (L) 250 - 450 ug/dL [facility] Iron % Saturation 12 (L) 20 - 55 % [facility] Specimen Blood Performing Organization Address [facility] Phone Number [address] [address] C[place] Ferritin (08/03/2018 1:51 AM CDT) Ferritin 207 5 - 275 ng/mL [facility] Specimen Blood Performing Organization Address City/State/Zipcode Phone Number [facility] [address] [place] [address] CENTER US renal complete (08/02/2018 5:48 AM CDT) Specimen Narrative Performed At FINAL REPORT [facility] TECHNIQUE: Grayscale ultrasound of the kidneys and bladder. INDICATION: 78-year-old woman with chronic kidney disease. COMPARISON: None. FINDINGS: RIGHT KIDNEY: The right kidney measures 9.3 cm. Cortical thickness measures 1.2 cm. No solid mass lesions. No hydronephrosis. 0.7 and 0.5 cm echogenic foci in the interpolar region with posterior acoustic shadowing, suggestive of nonobstructing calculi. Renal artery and vein are patent. LEFT KIDNEY: The left kidney measures 8.7 cm. Cortical thickness measures 1 cm. No solid mass lesions. 1.1 x 1.2 x 1.4 cm cyst in the upper pole. No hydronephrosis. A normal renal artery waveform is not clearly identified. Renal vein is patent. BLADDER: The bladder is decompressed by Alvarado catheter. IMPRESSION: Suspected nonobstructing right renal calculi. Otherwise, both kidneys are unremarkable. A normal left renal artery waveform is not clearly identified. Differential considerations include technical difficulties in finding the renal artery and renal vascular pathology. If there is concern for renal vascular pathology, then CTA or MRA may be obtained for further evaluation. Signed: Rob Navarro MD Report Verified Date/Time:08/02/2018 08:45:50 Reading Location: [address] Radiology Reading Room Procedure Note Interface, External Ris In - 08/02/2018 8:48 AM CDT FINAL REPORT TECHNIQUE: Grayscale ultrasound of the kidneys and bladder. INDICATION: 78-year-old woman with chronic kidney disease. COMPARISON: None. FINDINGS: RIGHT KIDNEY: The right kidney measures 9.3 cm. Cortical thickness measures 1.2 cm. No solid mass lesions. No hydronephrosis. 0.7 and 0.5 cm echogenic foci in the interpolar region with posterior acoustic shadowing, suggestive of nonobstructing calculi. Renal artery and vein are patent. LEFT KIDNEY: The left kidney measures 8.7 cm. Cortical thickness measures 1 cm. No solid mass lesions. 1.1 x 1.2 x 1.4 cm cyst in the upper pole. No hydronephrosis. A normal renal artery waveform is not clearly identified. Renal vein is patent. BLADDER: The bladder is decompressed by Alvarado catheter. IMPRESSION: Suspected nonobstructing right renal calculi. Otherwise, both kidneys are unremarkable. A normal left renal artery waveform is not clearly identified. Differential considerations include technical difficulties in finding the renal artery and renal vascular pathology. If there is concern for renal vascular pathology, then CTA or MRA may be obtained for further evaluation. Signed: Rob Navarro MD Report Verified Date/Time: 08/02/2018 08:45:50 Reading Location: [address] Radiology Reading Room Performing Organization Address City/[facility] Phone Number [facility] Potassium-Stat Lab (08/02/2018 3:52 AM CDT)Only the most recent of3 resultswithin the time period is included. Potassium 4.6 3.6 - 5.5 meq/L [facility] Specimen Blood, Arterial Performing Organization Address [facility] Phone Number [address] [address] [phone] CENTER Sodium Na-Stat Lab (08/02/2018 3:52 AM CDT)Only the most recent of3 resultswithin the time period is included. Sodium 136 135 - 148 meq/L [facility] Specimen Blood, Arterial Performing Organization Address [facility] Phone Number [address] [address] C[place] Glucose-Stat Lab (08/02/2018 3:52 AM CDT)Only the most recent of3 resultswithin the time period is included. Glucose 272 (H) 70 - 110 mg/dL [facility] Specimen Blood, Arterial Performing Organization Address City/[facility] Phone Number [address] [address] [phone] [place] HGB/HCT (H&H)-Stat Lab (08/02/2018 3:52 AM CDT)Only the most recent of3 resultswithin the time period is included. Hemoglobin 10.9 (L) 12.0 - 15.0 g/dL [facility] Hematocrit 32.0 (L) 36.0 - 45.0 % [facility] Specimen Blood, Arterial Performing Organization Address [facility] Phone Number [address] [address] [place] Uric acid (08/02/2018 3:52 AM CDT) Uric Acid 9.1 (H)Comment: Specimen 2.6 - 7.2 mg/dL [facility] slightly hemolyzed [facility] Specimen Blood Performing Organization Address [facility] Phone Number [address] [address] [phone] [place] B-type Natriuretic Factor (BNP) (08/02/2018 3:52 AM CDT)Only the most recent of2 resultswithin the time period is included. BNP 1,452 (H) 0 - 100 pg/mL [facility] Specimen Blood Performing Organization Address [facility] Phone Number [address] [address] [place] PERIPHERAL VASCULAR REPORT - SCAN (08/01/2018 9:23 PM CDT) Narrative Performed At ECHOCARDIOGRAM REPORT - SCAN (08/01/2018 9:21 PM CDT) Narrative Performed At PT/aPTT (08/01/2018 7:07 PM CDT) Protime 33.9 (H) 11.9 - 14.2 seconds [facility] INR 3.6 <=5.9 [facility] PTT 85.5 (H) 22.5 - 36.0 seconds [facility] Specimen Blood Narrative Performed At Effective 07/18/2018: PT Reference Range [facility] Change New: 11.9-14.2Previous: 11.7-14.7 RECOMMENDED COUMADIN/WARFARIN INR THERAPY RANGES STANDARD DOSE: 2.0-3.0Includes: PROPHYLAXIS for venous thrombosis, systemic embolization; TREATMENT for venous thrombosis and/or pulmonary embolus. HIGH RISK: Target INR is 2.5-3.5 for patients wiht mechanical heart valves. Performing Organization Address City/State/Zipcode Phone Number [address] [address] CENTER Oxygen saturation, measured (08/01/2018 7:07 PM CDT) O2 Saturation (Measured) 41.9 % [facility] Specimen Blood Performing Organization Address [facility] Phone Number [address] [address] [phone] CENTER Fibrinogen (08/01/2018 7:07 PM CDT) Fibrinogen 336 225 - 434 mg/dl [facility] Specimen Blood Performing Organization Address City/[facility] Phone Number [address] [address] CENTER CBC (Hemogram only) (08/01/2018 7:07 PM CDT) WBC 14.1 (H) 3.5 - 10.5 K/L [facility] RBC 3.68 (L) 3.93 - 5.22 M/L [facility] Hemoglobin 11.3 11.2 - 15.7 GM/DL [facility] Hematocrit 34.6 34.1 - 44.9 % [facility] MCV 94.0 79.4 - 94.8 fL [facility] MCH 30.7 25.6 - 32.2 pg [facility] MCHC 32.7 32.2 - 35.5 GM/DL [facility] RDW 13.1 11.7 - 14.4 % [facility] Platelets 207 150 - 450 K/CU MM [facility] MPV 9.9 9.4 - 12.3 fL [facility] nRBC 0 0 - 0 /100 WBC [facility] Specimen Blood Performing Organization Address City/[facility] Phone Number [address] [address] CENTER Electrolytes (08/01/2018 7:07 PM CDT) Sodium 137 136 - 145 meq/L [facility] Potassium 4.8Comment: Specimen slightly 3.5 - 5.1 meq/L [facility] hemolyzed [facility] Chloride 109 (H) 98 - 107 meq/L [facility] CO2 20 (L) 22 - 29 meq/L [facility] Specimen Blood Narrative Performed At Call k > 5, [phone] [facility] Performing Organization Address City/[facility] Phone Number [address] [address] [phone] CENTER Hemoglobin and hematocrit (08/01/2018 4:16 PM CDT) Hemoglobin 10.1 (L) 11.2 - 15.7 GM/DL [facility] Hematocrit 31.6 (L) 34.1 - 44.9 % [facility] Specimen Blood Performing Organization Address City/[facility]/Zipcode Phone Number [address] [address] [phone] [place] Platelet Aggregation: Function Screen (08/01/2018 8:04 AM CDT) Weak ADP 34 (L) 60 - 91 % [facility] Plt. Function Screen 0-39% indicates marked [facility] Interpretation platelet dysfunction [facility] Pathologist: Talia Villarreal MD [facility] (electronic signature) [facility] Platelets 186 150 - 450 K/CU [facility] MM [facility] Specimen Blood Narrative Performed At Platelet Function Screen results may be [facility] falsely low with platelet counts <100,000/cu mm. Performing Organization Address [facility] Phone Number [address] [address] [phone] [place] Hepatic function panel (08/01/2018 5:25 AM CDT)Only the most recent of2 resultswithin the time period is included. Protein, Total 6.2Comment: Specimen 6.0 - 8.3 gm/dL [facility] hemolyzed [facility] Albumin 3.4 (L)Comment: Specimen 3.5 - 5.0 g/dL [facility] Total Bilirubin 0.4Comment: Specimen 0.2 - 1.2 mg/dL [facility] Bilirubin, Direct 0.1Comment: Specimen 0.1 - 0.5 mg/dL [facility] Alkaline Phosphatase 59 40 - 150 U/L [facility] AST 19Comment: Specimen 5 - 34 U/L [facility] ALT 10Comment: Specimen 6 - 55 U/L [facility] Specimen Blood Performing Organization Address City/[facility] Phone Number [facility] [address] [place] [address] [place] Thrombin time (08/01/2018 4:18 AM CDT) Thrombin Time 64.9 (H) 13.8 - 20.0 secs [facility] Specimen Blood Narrative Performed At Draw baseline aPTT prior to infusion [facility] Performing Organization Address City/State/Zipcode Phone Number [facility] [address] [place] [address] CENTER Prothrombin time/INR (08/01/2018 4:18 AM CDT)Only the most recent of2 resultswithin the time period is included. Protime 15.0 (H) 11.9 - 14.2 seconds [facility] INR 1.2 <=5.9 [facility] Specimen Blood Narrative Performed At Effective 07/18/2018: PT Reference Range [facility] Change New: 11.9-14.2Previous: 11.7-14.7 RECOMMENDED COUMADIN/WARFARIN INR THERAPY RANGES STANDARD DOSE: 2.0-3.0Includes: PROPHYLAXIS for venous thrombosis, systemic embolization; TREATMENT for venous thrombosis and/or pulmonary embolus. HIGH RISK: Target INR is 2.5-3.5 for patients wiht mechanical heart valves. Draw baseline aPTT prior to infusion Performing Organization Address City/State/Zipcode Phone Number [facility] [address] [place] [phone] [place] 2D Echo W/Doppler(CW/PW/Color) (08/01/2018 2:05 AM CDT) Ejection Fraction [facility] ECHO HEARTLAB [facility] Specimen Narrative Performed At Transthoracic Echocardiography Report (TTE) [facility] ECHO HEARTLAB ABOVE [facility] Demographics Patient NameCARRIHENRIQUE MOSES Date of Study 08/01/2018 ESCOBDEO GenderFemale Visit [id number] RaceUnknown Number [id number] Number Date of 1940 Referring Peyton Choe Physician Age 78 year(s) Grading Supervisor Nat Kuhn RDCS, RVT InterpretingStep david Pettit, Physician MD Tashi Ferraro MD Procedure Type of Study TTE procedure:2DECHO W DOPPLER(CW/PW/COLOR) (STAT) Indications:Acute Chest Pain/ Suspected CAD. Clinical History HGB 13 HCT 41.2 % Height: 61 inches Weight: 77.56 kg (171 lbs) BSA: 1.77 m^2 BMI: 32.31 kg/m^2 HR: 79 bpm BP: 132/67 mmHg Summary 1. All of the LV segments contract normally . LVEF by Beauchamp's method of disk assessment is lower limits of normal (50-55%) . 2. Estimated peak systolic PA pressure is cannot be determined due to inadequate TR velocity signal . 3. Grade 2 diastolic dysfunction (moderately increased LA pressure). Previous Study No prior studies available for comparison. Signature Findings Rhythm/BPRegular sinus rhythm during the exam. Left Ventricle The LV endocardium is adequately visualized. Th e left ventricle is chamber size (by vol index) is small. LV septal thickness is mildly increased (1 .2-1.4cm). LV posterior wall thickness is normal (0 .6-1.1cm) . Al l of the LV segments contract normally . LV EF by Beauchamp's method of disk assessment is lo wer limits of normal (50-55%) . Gr kaycee 2 diastolic dysfunction (moderately increased LA pressure). Left AtriumLA size is severely enlarged (>48 ml/m2) . LA is adequately visualized. Right VentricleNormal right ventricular systolic function. Th e right ventricular cavity size is normal . Right Atrium RA size is probably normal based on available vi ews. Atrial SeptumThe interatrial septum is adequately visualized. No rmal interatrial septum by available views. Aortic Valve Normal AoV structure and function. No evidence of aortic regurgitation. No evidence of aortic stenosis. Mitral Valve Moderate MV leaflet thickening. MV calcification is prominent in leaflet leading ed ges . Tricuspid ValveA trace of tricuspid regurgitation. Es timated peak systolic PA pressure is cannot be de termined due to inadequate TR velocity signal . TV structure is normal. Pulmonic Valve Normal PV structure and function by limited views an d Doppler. AortaAortic root size (SInus of Valsalva diameter) is no rmal . PericardiumNo significant pericardial effusion is visualized. IVC/SVC/PA/PV/PleuralThe estimated RA pressure by IVC dynamics 0-5mmHg . Th e inferior vena cava size is normal . He patic Vein pulsed Doppler pattern is normal . Chambers/Structures Left Atrium LA Volume: 86.12 ml LA Area: 24.07 cm^2 LA Vol. Index: 49 ml/m^2 Left Ventricle LVIDd: 4.03 cm LVIDs: 2.54 cm LV Septum Diastolic: 1.26 cm LV PW Diastolic: 1.13 cmLV FS: 37 % LVEDV Beauchamp's:50.44 ml LVESV Beauchamp's:23.01 mlLVEDVI: 28 ml/m^2 LVEF Beauchamp's: 54.4 %LVESV I: 13 ml/m^2 LVOT Diameter: 2.04 cm Doppler/Quantitative Measurements Mitral Valve MV Peak E-Wave: 1.46 m/sMV Peak A-Wave: 1.39 m/s E/A Ratio: 1.05 Peak Gradient: 8.49 mmHg Deceleration Time: 261.9 msec MV Main. Peak: Tissue Doppler E' Lateral Velocity: 0.08 m/s A' Lateral Velocity: 0.1 m/s E/E': 18.74 Aortic Valve Peak Velocity: 1.47 m/sMean Velocity: 1.06 m/s Peak Gradient: 8.68 mmHg Mean Gradient: 5.05 mmHg AV Area (continuity): 1.91 cm^2 AV VTI: 36.4 cm AV DVI: 0.59 LVOT Peak Velocity: 0.96 m/s Peak Gradient: 3.65 mmHg Mean Velocity: 0.59 m/s Mean Gradient: 1.71 mmHg LVOT Diameter: 2.04 cmLVOT VTI: 21.31 cm LVOT Area: 3.27 cm^2LVOT SV:69.62 ml LVOT CO: 5.5 l/minLVOT CI: 3.11 l/min/m^2 Procedure Note Interface, External Ris In - 08/01/2018 10:40 AM CDT Transthoracic Echocardiography Report (TTE) Demographics Patient Name HENRIQUE ARECHIGA Date of Study 08/01/2018 ESCBRENDADEO Gender Female Visit Number [id number] Race Unknown Room Number 6102 Number Date of 1940 Referring [facility] Spencer Choe Physician Age 78 year(s) Grading Supervisor Nat Kuhn [facility], RVT Interpreting Nat Pettit Physician MD Fellow Rey Ferraro MD Procedure Type of Study TTE procedure:2DECHO W DOPPLER(CW/PW/COLOR) (STAT) Indications:Acute Chest Pain/ Suspected CAD. Clinical History HGB 13 HCT 41.2 % Height: 61 inches Weight: 77.56 kg (171 lbs) BSA: 1.77 m^2 BMI: 32.31 kg/m^2 HR: 79 bpm BP: 132/67 mmHg Summary 1. All of the LV segments contract normally . LVEF by Beauchamp's method of disk assessment is lower limits of normal (50-55%) . 2. Estimated peak systolic PA pressure is cannot be determined due to inadequate TR velocity signal . 3. Grade 2 diastolic dysfunction (moderately increased LA pressure). Previous Study No prior studies available for comparison. Signature Findings Rhythm/BP Regular sinus rhythm during the exam. Left Ventricle The LV endocardium is adequately visualized. The left ventricle is chamber size (by vol index) is small. LV septal thickness is mildly increased (1.2-1.4cm). LV posterior wall thickness is normal (0.6-1.1cm) . All of the LV segments contract normally . LVEF by Beauchamp's method of disk assessment is lower limits of normal (50-55%) . Grade 2 diastolic dysfunction (moderately increased LA pressure). Left Atrium LA size is severely enlarged (>48 ml/m2) . LA is adequately visualized. Right Ventricle Normal right ventricular systolic function. The right ventricular cavity size is normal . Right Atrium RA size is probably normal based on available views. Atrial Septum The interatrial septum is adequately visualized. Normal interatrial septum by available views. Aortic Valve Normal AoV structure and function. No evidence of aortic regurgitation. No evidence of aortic stenosis. Mitral Valve Moderate MV leaflet thickening. MV calcification is prominent in leaflet leading edges . Tricuspid Valve A trace of tricuspid regurgitation. Estimated peak systolic PA pressure is cannot be determined due to inadequate TR velocity signal . TV structure is normal. Pulmonic Valve Normal PV structure and function by limited views and Doppler. Aorta Aortic root size (SInus of Valsalva diameter) is normal . Pericardium No significant pericardial effusion is visualized. IVC/SVC/PA/PV/Pleural The estimated RA pressure by IVC dynamics 0-5mmHg . The inferior vena cava size is normal . Hepatic Vein pulsed Doppler pattern is normal . Chambers/Structures Left Atrium LA Volume: 86.12 ml LA Area: 24.07 cm^2 LA Vol. Index: 49 ml/m^2 Left Ventricle LVIDd: 4.03 cm LVIDs: 2.54 cm LV Septum Diastolic: 1.26 cm LV PW Diastolic: 1.13 cm LV FS: 37 % LVEDV Beauchamp's:50.44 ml LVESV Beauchamp's:23.01 ml LVEDVI: 28 ml/m^2 LVEF Beauchamp's: 54.4 % LVESVI: 13 ml/m^2 LVOT Diameter: 2.04 cm Doppler/Quantitative Measurements Mitral Valve MV Peak E-Wave: 1.46 m/s MV Peak A-Wave: 1.39 m/s E/A Ratio: 1.05 Peak Gradient: 8.49 mmHg Deceleration Time: 261.9 msec MV Main. Peak: Tissue Doppler E' Lateral Velocity: 0.08 m/s A' Lateral Velocity: 0.1 m/s E/E': 18.74 Aortic Valve Peak Velocity: 1.47 m/s Mean Velocity: 1.06 m/s Peak Gradient: 8.68 mmHg Mean Gradient: 5.05 mmHg AV Area (continuity): 1.91 cm^2 AV VTI: 36.4 cm AV DVI: 0.59 LVOT Peak Velocity: 0.96 m/s Peak Gradient: 3.65 mmHg Mean Velocity: 0.59 m/s Mean Gradient: 1.71 mmHg LVOT Diameter: 2.04 cm LVOT VTI: 21.31 cm LVOT Area: 3.27 cm^2 LVOT SV:69.62 ml LVOT CO: 5.5 l/min LVOT CI: 3.11 l/min/m^2 Performing Organization Address City/State/Zipcode Phone Number [facility] [employer] [facility] Carotid doppler bilateral (08/01/2018 1:11 AM CDT) Ejection Fraction [facility] ECHO HEARTLAB Grav[facility] Specimen Impressions Performed At Right Impression [facility] E[facility] HEART[facility] GripeOESSON [facility] 1. There is <50% diameter reduction (approximately 39% by 2-D measurement) in the internal carotid artery with a peak velocity of 107/32.2 cm/sec and heterogeneous plaque. 2. There is stenosis in the external carotid artery with a velocity of 277 cm/sec. 3. There is non-occluding plaque in the common carotid artery. 4. The vertebral artery is not visualized. 5. The subclavian artery is within normal limits where visualized. 6. The waveforms were consistent with IABP support. Left Impression 1. There is <50% diameter reduction (approximately 46% by 2-D measurement) in the internal carotid artery with a peak velocity of 123/36.1 cm/sec and heterogeneous plaque. 2. There is non-occluding plaque in the external carotid artery. 3. There is non-occluding plaque in the common carotid artery. 4. The vertebral artery flow is antegrade and normal. 5. The subclavian artery is within normal limits where visualized. 6. The waveforms were consistent with IABP support. Conclusions Summary Carotid duplex scanning and color flow imaging were performed bilaterally. The exam was technically difficult due to patient body habitus and patient movement. The bilateral internal carotid arteries had <50% hemodynamically insignificant stenosis (approximately 39% by 2-D measurement on the right, approximately 46% by 2-D measurement on the left) with heterogeneous plaque. The right external carotid artery had stenosis with a velocity of 277 cm/sec. On the right, the vertebral artery was not visualized. On the left, the vertebral artery flow was antegrade and normal. The subclavian arteries were patent with normal flow bilaterally where visualized. The waveforms were consistent with IABP support. Signature Velocities are measured in cm/s ; Diameters are measured in cm Carotid Right Measurements + +----+----+-----+ +---- + + !Location !PSV !EDV !Angle!%Stenosis 2D!%Stenosis Doppler!Tortuosity ! + +----+----+-----+ +---- + + !Prox CCA !89.7!17.6!60 !! ! ! + +----+----+-----+ +---- + + !Dist CCA !126 !39.3!60 !! ! ! + +----+----+-----+ +---- + + !Prox ICA !107 !32.2!60 !39% !<50% ! ! + +----+----+-----+ +---- + + !Dist ICA !127 !57.6!56 !! ! ! + +----+----+-----+ +---- + + !Prox ECA !277 !37.4!60 !! ! ! + +----+----+-----+ +---- + + !Prox Subclavian!121 !!56 !! ! ! + +----+----+-----+ +---- + + - Additional Measurements:ICAPSV/CCAPSV 1.01.ICAEDV/CCAEDV 3.27. Carotid Left Measurements + +----+----+-----+ +---- + + !Location !PSV !EDV !Angle!%Stenosis 2D!%Stenosis Doppler!Tortuosity ! + +----+----+-----+ +---- + + !Prox CCA !96.6!31.4!60 !! ! ! + +----+----+-----+ +---- + + !Dist CCA !76.2!24.4!60 !! ! ! + +----+----+-----+ +---- + + !Prox ICA !123 !36.1!60 !46% !<50% ! ! + +----+----+-----+ +---- + + !Dist ICA !63.3!30.6!0!! ! ! + +----+----+-----+ +---- + + !Prox ECA !109 !22.8!60 !! ! ! + +----+----+-----+ +---- + + !Vertebral!55!28.3!60 !! ! ! + +----+----+-----+ +---- + + !Prox Subclavian!157 !!60 !! ! ! + +----+----+-----+ +---- + + - There is antegrade vertebral flow noted on the left side. - Additional Measurements:ICAPSV/CCAPSV 1.61.ICAEDV/CCAEDV 1.15. Narrative Performed At LAB - Carotid Duplex Study [facility] ECHO HEARTLAB MKCKESSON [facility] Demographics Patient Name HENRIQUE ARECHIGA Date of Study08/01/2018 ESCOBDEO [id number] Age78 Visit Number [id number] Gender Female Accession Number [id number] Date of Birth1940 [facility] [id number] Physician SonographerRex Garces Interpreting Jose Alfredo Stroud Procedure Type of Study: Cerebral: Carotid, CAROTID DOPPLER, BILATERAL. Indications for Study:Pre-op evaluation. Patient Status:Routine. Study Location:Portable. Technical Quality:Technically Difficult. Risk Factors History of Disease + +----+ + !Diagnosis !Date!Comments ! + +----+ + !History/Risk Factors: !!CKD, HLD, HTN, CAD, IABP, Morbid Obesity! + +----+ + Procedure Note Interface, External Ris In - 08/01/2018 10:29 AM CDT [facility] - Carotid Duplex Study Demographics Patient Name HENRIQUE ARECHIGA Date of Study 08/01/2018 ESCOBDEO Age 78 Visit Number [id number] Gender Female Accession Number [id number] Date of 1940 Referring Peyton Choe Room Number 6102 Physician Grading Supervisor Rex Garces Interpreting Physician XIMENA Stroud Procedure Type of Study: Cerebral: Carotid, CAROTID DOPPLER, BILATERAL. Indications for Study:Pre-op evaluation. Patient Status:Routine. Study Location:Portable. Technical Quality:Technically Difficult. Risk Factors History of Disease + +----+ + !Diagnosis !Date!Comments ! + +----+ + !History/Risk Factors: ! !CKD, HLD, HTN, CAD, IABP, Morbid Obesity ! + +----+ + Impressions Right Impression 1. There is <50% diameter reduction (approximately 39% by 2-D measurement) in the internal carotid artery with a peak velocity of 107/32.2 cm/sec and heterogeneous plaque. 2. There is stenosis in the external carotid artery with a velocity of 277 cm/sec. 3. There is non-occluding plaque in the common carotid artery. 4. The vertebral artery is not visualized. 5. The subclavian artery is within normal limits where visualized. 6. The waveforms were consistent with IABP support. Left Impression 1. There is <50% diameter reduction (approximately 46% by 2-D measurement) in the internal carotid artery with a peak velocity of 123/36.1 cm/sec and heterogeneous plaque. 2. There is non-occluding plaque in the external carotid artery. 3. There is non-occluding plaque in the common carotid artery. 4. The vertebral artery flow is antegrade and normal. 5. The subclavian artery is within normal limits where visualized. 6. The waveforms were consistent with IABP support. Conclusions Summary Carotid duplex scanning and color flow imaging were performed bilaterally. The exam was technically difficult due to patient body habitus and patient movement. The bilateral internal carotid arteries had <50% hemodynamically insignificant stenosis (approximately 39% by 2-D measurement on the right, approximately 46% by 2-D measurement on the left) with heterogeneous plaque. The right external carotid artery had stenosis with a velocity of 277 cm/sec. On the right, the vertebral artery was not visualized. On the left, the vertebral artery flow was antegrade and normal. The subclavian arteries were patent with normal flow bilaterally where visualized. The waveforms were consistent with IABP support. Signature Velocities are measured in cm/s ; Diameters are measured in cm Carotid Right Measurements + +----+----+-----+ + + + !Location !PSV !EDV !Angle!%Stenosis 2D!%Stenosis Doppler!Tortuosity ! + +----+----+-----+ + + + !Prox CCA !89.7!17.6!60 ! ! ! ! + +----+----+-----+ + + + !Dist CCA !126 !39.3!60 ! ! ! ! + +----+----+-----+ + + + !Prox ICA !107 !32.2!60 !39% !<50% ! ! + +----+----+-----+ + + + !Dist ICA !127 !57.6!56 ! ! ! ! + +----+----+-----+ + + + !Prox ECA !277 !37.4!60 ! ! ! ! + +----+----+-----+ + + + !Prox Subclavian!121 ! !56 ! ! ! ! + +----+----+-----+ + + + - Additional Measurements:ICAPSV/CCAPSV 1.01.ICAEDV/CCAEDV 3.27. Carotid Left Measurements + +----+----+-----+ + + + !Location !PSV !EDV !Angle!%Stenosis 2D!%Stenosis Doppler!Tortuosity ! + +----+----+-----+ + + + !Prox CCA !96.6!31.4!60 ! ! ! ! + +----+----+-----+ + + + !Dist CCA !76.2!24.4!60 ! ! ! ! + +----+----+-----+ + + + !Prox ICA !123 !36.1!60 !46% !<50% ! ! + +----+----+-----+ + + + !Dist ICA !63.3!30.6!0 ! ! ! ! + +----+----+-----+ + + + !Prox ECA !109 !22.8!60 ! ! ! ! + +----+----+-----+ + + + !Vertebral !55 !28.3!60 ! ! ! ! + +----+----+-----+ + + + !Prox Subclavian!157 ! !60 ! ! ! ! + +----+----+-----+ + + + - There is antegrade vertebral flow noted on the left side. - Additional Measurements:ICAPSV/CCAPSV 1.61.ICAEDV/CCAEDV 1.15. Performing Organization Address City/[facility] Phone Number [facility] MKCKESSON CPACS TSH/T4 if indicated (07/31/2018 8:12 PM CDT) TSH 0.99 0.35 - 4.94 uIU/mL [facility] Specimen Blood Performing Organization Address City/[facility]/Zipcode Phone Number [facility] [address] [place] [address] [phone] CENTER after 08/19/2017 Insurance Payer Benefit Plan / Group Subscriber ID Type Phone Address [employer] ALL xxxxxxxx Maps Contracted MEDICAID [place] xxxxxxxxx Medicaid Advance Directives Patient has advance care planning documents, and code status on file. For more information, please contact:[address] [phone] Code Status Date Activated Date Inactivated Comments Full Code 08/01/2018 12:28 AM This code status was determined by: Patient Full Code 07/31/2018 7:56 PM 08/01/2018 12:28 AM This code status was determined by: Patient
--- OUTSIDE RECORDS SUMMARY | 2018-08-20 16:32 | XMS REPORT ---
:1940 [facility] Address [address] [place] [address] [address] [place] [address] Care Team Providers Name Role Phone KHANG STUART Unavailable Unavailable Payers Payer Name Policy Type Policy Number Effective Date Expiration Date Problems This patient has no known problems. Allergies, Adverse Reactions, Alerts Allergy Allergy Status Severity Reaction(s) Onset Inactive Treating Comments Name Type Date Date Clinician iodine DA Active 2018-07 00:00:0 0 morphine DA Active SV 2018-07 00:00:0 0 Medications This patient has no known medications. Results Test Description Test Time Test Comments Text Results Atomic Results Result Comments POCT-GLUCOSE METER 2018-08-20 12:11:00 Test Item Value Reference Range Comments POC-GLUCOSE METER (BEAKER) (test 111 mg/dL 70-[address] [facility] [address] [facility] [address] CBC W/PLT COUNT & AUTO [id number] 10:11:00 Test Item Value Reference Range Comments WHITE BLOOD CELL COUNT 4.7 K/ L 3.5-10.5 (BEAKER) (test kpmx=850) RED BLOOD CELL COUNT (BEAKER) 3.14 M/ L 3.93-5.22 (test zimf=664) HEMOGLOBIN (BEAKER) (test 10.1 GM/DL 11.2-15.7 ntcb=575) HEMATOCRIT (BEAKER) (test 34.0 % 34.1-44.9 lkff=893) MEAN CORPUSCULAR VOLUME 108.3 fL 79.4-94.8 Discordant results compared (BEAKER) (test efjg=447) to previous result; clinical correlation required. MEAN CORPUSCULAR HEMOGLOBIN 32.2 pg 25.6-32.2 (BEAKER) (test imnh=554) MEAN CORPUSCULAR HEMOGLOBIN 29.7 GM/DL 32.2-35.5 CONC (BEAKER) (test tdoe=361) RED CELL DISTRIBUTION WIDTH 18.5 % 11.7-14.4 (BEAKER) (test rmzi=492) PLATELET COUNT (BEAKER) (test 186 K/CU MM 150-450 cgpr=615) MEAN PLATELET VOLUME (BEAKER) 9.5 fL 9.4-12.3 (test fzno=765) NUCLEATED RED BLOOD CELLS 0 /100 WBC 0-0 (BEAKER) (test vyyg=393) NEUTROPHILS RELATIVE PERCENT 67 % (BEAKER) (test ifvf=694) LYMPHOCYTES RELATIVE PERCENT 14 % (BEAKER) (test mjbn=149) MONOCYTES RELATIVE PERCENT 14 % (BEAKER) (test dljs=136) EOSINOPHILS RELATIVE PERCENT 3 % (BEAKER) (test xupg=096) BASOPHILS RELATIVE PERCENT 1 % (BEAKER) (test sgld=515) NEUTROPHILS ABSOLUTE COUNT 3.16 K/ L 1.56-6.13 (BEAKER) (test gsdh=097) LYMPHOCYTES ABSOLUTE COUNT 0.67 K/ L 1.18-3.74 (BEAKER) (test stgk=645) MONOCYTES ABSOLUTE COUNT 0.65 K/ L 0.24-0.36 (BEAKER) (test nrun=321) EOSINOPHILS ABSOLUTE COUNT 0.15 K/ L 0.04-0.36 (BEAKER) (test wgyq=063) BASOPHILS ABSOLUTE COUNT 0.03 K/ L 0.01-0.08 (BEAKER) (test wksy=576) IMMATURE 1 % 0-1 GRANULOCYTES-RELATIVE PERCENT (BEAKER) (test dicp=5359) POCT-GLUCOSE [id number] 07:46:00 Test Item Value Reference Range Comments POC-GLUCOSE METER (BEAKER) 79 mg/dL 70-[address] [facility] [address] [place] [address] (test rkbt=1323) [facility] [address] BASIC METABOLIC [id number] 06:22:00 Test Item Value Reference Range Comments SODIUM (BEAKER) (test 136 meq/L 136-145 gchb=460) POTASSIUM (BEAKER) (test 4.0 meq/L 3.5-5.1 ojsx=804) CHLORIDE (BEAKER) (test 100 meq/L 98-107 wnpx=926) CO2 (BEAKER) (test 26 meq/L 22-29 duqg=452) BLOOD UREA NITROGEN 55 mg/dL 7-21 (BEAKER) (test joht=182) CREATININE (BEAKER) (test 2.87 mg/dL 0.57-1.25 mhhs=767) GLUCOSE RANDOM (BEAKER) 79 mg/dL 70-105 (test sqwq=928) CALCIUM (BEAKER) (test 8.6 mg/dL 8.4-10.2 qglc=738) EGFR (BEAKER) (test 16 mL/min/1.73 sq m ESTIMATED GFR IS NOT ajes=2275) ACCURATE CREATININE CLEARANCE IN PREDICTING GLOMERULAR FILTRATION RATE. ESTIMATED GFR IS NOT APPLICABLE FOR DIALYSIS PATIENTS. POCT-GLUCOSE [id number] 20:51:00 Test Item Value Reference Range Comments POC-GLUCOSE METER (BEAKER) 176 mg/dL 70-110 TESTED AT [address] (test yizf=4625) [place] [address] POCT-GLUCOSE [id number] 18:25:00 Test Item Value Reference Range Comments POC-GLUCOSE METER (BEAKER) 84 mg/dL 70-110 TESTED AT [address] (test vcmg=3577) [place] [address] POCT-GLUCOSE [id number] 12:54:00 Test Item Value Reference Range Comments POC-GLUCOSE METER (BEAKER) 111 mg/dL 70-110 TESTED AT [address] (test eijm=1001) [place] [address] POCT-GLUCOSE [id number] 08:25:00 Test Item Value Reference Range Comments POC-GLUCOSE METER (BEAKER) 105 mg/dL 70-110 TESTED AT [address] (test dtpo=8320) [place] [address] BASIC METABOLIC [id number] 06:26:00 Test Item Value Reference Range Comments SODIUM (BEAKER) (test 137 meq/L 136-145 refp=186) POTASSIUM (BEAKER) (test 3.9 meq/L 3.5-5.1 oemw=107) CHLORIDE (BEAKER) (test 100 meq/L 98-107 yczi=154) CO2 (BEAKER) (test 28 meq/L 22-29 wwtv=646) BLOOD UREA NITROGEN 53 mg/dL 7-21 (BEAKER) (test iich=506) CREATININE (BEAKER) (test 3.07 mg/dL 0.57-1.25 afmn=230) GLUCOSE RANDOM (BEAKER) 71 mg/dL 70-105 (test yuzr=180) CALCIUM (BEAKER) (test 8.6 mg/dL 8.4-10.2 pdlr=803) EGFR (BEAKER) (test 15 mL/min/1.73 sq m ESTIMATED GFR IS NOT rqee=3784) ACCURATE CREATININE CLEARANCE IN PREDICTING GLOMERULAR FILTRATION RATE. ESTIMATED GFR IS NOT APPLICABLE FOR DIALYSIS PATIENTS. POCT-GLUCOSE [id number] 04:25:00 Test Item Value Reference Range Comments POC-GLUCOSE METER (BEAKER) 81 mg/dL 70-110 TESTED AT [address] (test xxbk=7178) [place] [address] POCT-GLUCOSE [id number] 21:58:00 Test Item Value Reference Range Comments POC-GLUCOSE METER (BEAKER) 164 mg/dL 70-110 TESTED AT [address] (test npsp=3037) [place] [address] POCT-GLUCOSE [id number] 18:38:00 Test Item Value Reference Range Comments POC-GLUCOSE METER (BEAKER) 98 mg/dL 70-110 TESTED AT [address] (test atsv=3071) [place] [address] POCT-GLUCOSE [id number] 13:14:00 Test Item Value Reference Range Comments POC-GLUCOSE METER (BEAKER) 105 mg/dL 70-110 TESTED AT [address] (test gonx=1458) [place] [address] POCT-GLUCOSE [id number] 08:12:00 Test Item Value Reference Range Comments POC-GLUCOSE METER (BEAKER) 115 mg/dL 70-110 TESTED AT [address] (test qgjc=8383) [place] [address] BASIC METABOLIC [id number] 07:37:00 Test Item Value Reference Range Comments SODIUM (BEAKER) (test 136 meq/L 136-145 xzxl=330) POTASSIUM (BEAKER) (test 3.7 meq/L 3.5-5.1 hjkj=398) CHLORIDE (BEAKER) (test 98 meq/L 98-107 tcxz=945) CO2 (BEAKER) (test 28 meq/L 22-29 wrxv=216) BLOOD UREA NITROGEN 54 mg/dL 7-21 (BEAKER) (test nrvu=720) CREATININE (BEAKER) (test 3.37 mg/dL 0.57-1.25 jhoq=613) GLUCOSE RANDOM (BEAKER) 85 mg/dL 70-105 (test ihdk=937) CALCIUM (BEAKER) (test 8.5 mg/dL 8.4-10.2 eilp=784) EGFR (BEAKER) (test 13 mL/min/1.73 sq m ESTIMATED GFR IS NOT nduv=4119) ACCURATE CREATININE CLEARANCE IN PREDICTING GLOMERULAR FILTRATION RATE. ESTIMATED GFR IS NOT APPLICABLE FOR DIALYSIS PATIENTS. POCT-GLUCOSE [id number] 07:22:00 Test Item Value Reference Range Comments POC-GLUCOSE METER (BEAKER) 128 mg/dL 70-110 TESTED AT [address] (test tsoj=7170) [place] [id number] POCT-GLUCOSE [id number] 04:05:00 Test Item Value Reference Range Comments POC-GLUCOSE METER (BEAKER) 95 mg/dL 70-110 TESTED AT [address] (test bvgx=3516) [place] [address] POCT-GLUCOSE [id number] 04:05:00 Test Item Value Reference Range Comments POC-GLUCOSE METER (BEAKER) 68 mg/dL 70-110 TESTED AT [address] (test nddt=6504) [place] [address] POCT-GLUCOSE [id number] 04:05:00 Test Item Value Reference Range Comments POC-GLUCOSE METER (BEAKER) 52 mg/dL 70-110 TESTED AT [address] (test mqfi=9059) [place] [address] POCT-GLUCOSE [id number] 22:26:00 Test Item Value Reference Range Comments POC-GLUCOSE METER (BEAKER) 132 mg/dL 70-110 TESTED AT [address] (test okzu=0478) [place] [id number] POCT-GLUCOSE [id number] 19:58:00 Test Item Value Reference Range Comments POC-GLUCOSE METER (BEAKER) 134 mg/dL 70-110 TESTED AT [address] (test igik=2436) [place] [address] POCT-GLUCOSE [id number] 13:11:00 Test Item Value Reference Range Comments POC-GLUCOSE METER (BEAKER) 148 mg/dL 70-110 TESTED AT [place] [id number] [facility] (test rxtw=5667) [place] [address] POCT-GLUCOSE [id number] 12:30:00 Test Item Value Reference Range Comments POC-GLUCOSE METER (BEAKER) 183 mg/dL 70-110 TESTED AT [address] (test nkfb=7959) [place] [address] CBC W/PLT COUNT & AUTO [id number] 10:37:00 Test Item Value Reference Range Comments WHITE BLOOD CELL COUNT (BEAKER) (test cieg=046) 7.4 K/ L 3.5-10.5 RED BLOOD CELL COUNT (BEAKER) (test fvhn=237) 3.03 M/ L 3.93-5.22 HEMOGLOBIN (BEAKER) (test kcxc=380) 9.5 GM/DL 11.2-15.7 HEMATOCRIT (BEAKER) (test ypfl=385) 31.4 % 34.1-44.9 MEAN CORPUSCULAR VOLUME (BEAKER) (test vehw=506) 103.6 fL 79.4-94.8 MEAN CORPUSCULAR HEMOGLOBIN (BEAKER) (test 31.4 pg 25.6-32.2 lfqk=698) MEAN CORPUSCULAR HEMOGLOBIN CONC (BEAKER) (test 30.3 GM/DL 32.2-35.5 pyjz=893) RED CELL DISTRIBUTION WIDTH (BEAKER) (test 18.8 % 11.7-14.4 wsng=540) PLATELET COUNT (BEAKER) (test eywn=432) 205 K/CU MM 150-450 MEAN PLATELET VOLUME (BEAKER) (test rbex=187) 9.8 fL 9.4-12.3 NUCLEATED RED BLOOD CELLS (BEAKER) (test 0 /100 WBC 0-0 ktxe=653) NEUTROPHILS RELATIVE PERCENT (BEAKER) (test 70 % llif=416) LYMPHOCYTES RELATIVE PERCENT (BEAKER) (test 11 % tloc=388) MONOCYTES RELATIVE PERCENT (BEAKER) (test 15 % vvpn=087) EOSINOPHILS RELATIVE PERCENT (BEAKER) (test 2 % izdp=340) BASOPHILS RELATIVE PERCENT (BEAKER) (test 0 % corl=275) NEUTROPHILS ABSOLUTE COUNT (BEAKER) (test 5.19 K/ L 1.56-6.13 ftxx=509) LYMPHOCYTES ABSOLUTE COUNT (BEAKER) (test 0.82 K/ L 1.18-3.74 fhrv=203) MONOCYTES ABSOLUTE COUNT (BEAKER) (test 1.13 K/ L 0.24-0.36 nagj=598) EOSINOPHILS ABSOLUTE COUNT (BEAKER) (test 0.14 K/ L 0.04-0.36 ztsa=965) BASOPHILS ABSOLUTE COUNT (BEAKER) (test 0.03 K/ L 0.01-0.08 kojo=763) IMMATURE GRANULOCYTES-RELATIVE PERCENT (BEAKER) 1 % 0-1 (test kwta=9258) POCT-GLUCOSE [id number] 08:09:00 Test Item Value Reference Range Comments POC-GLUCOSE METER (BEAKER) 99 mg/dL 70-110 TESTED AT [address] (test urkh=8916) [place] [address] BASIC METABOLIC [id number] 05:41:00 Test Item Value Reference Range Comments SODIUM (BEAKER) (test 136 meq/L 136-145 proo=947) POTASSIUM (BEAKER) (test 4.1 meq/L 3.5-5.1 gqsx=582) CHLORIDE (BEAKER) (test 99 meq/L 98-107 ebau=929) CO2 (BEAKER) (test 29 meq/L 22-29 tyzh=014) BLOOD UREA NITROGEN 46 mg/dL 7-21 (BEAKER) (test ntqo=977) CREATININE (BEAKER) (test 3.01 mg/dL 0.57-1.25 guan=723) GLUCOSE RANDOM (BEAKER) 107 mg/dL 70-105 (test rugg=612) CALCIUM (BEAKER) (test 8.5 mg/dL 8.4-10.2 kjju=197) EGFR (BEAKER) (test 15 mL/min/1.73 sq m ESTIMATED GFR IS NOT ycbi=4802) ACCURATE CREATININE CLEARANCE IN PREDICTING GLOMERULAR FILTRATION RATE. ESTIMATED GFR IS NOT APPLICABLE FOR DIALYSIS PATIENTS. POCT-GLUCOSE [id number] 21:42:00 Test Item Value Reference Range Comments POC-GLUCOSE METER (BEAKER) 171 mg/dL 70-110 TESTED AT [address] (test bdkj=5460) [place] [address] POCT-GLUCOSE [id number] 18:03:00 Test Item Value Reference Range Comments POC-GLUCOSE METER (BEAKER) 123 mg/dL 70-110 TESTED AT [place] [id number] [facility] (test xrye=8174) [facility] [address] POCT-GLUCOSE [id number] 12:52:00 Test Item Value Reference Range Comments POC-GLUCOSE METER (BEAKER) 167 mg/dL 70-110 TESTED AT [address] (test xulq=5372) [facility] [address] POCT-GLUCOSE [id number] 09:05:00 Test Item Value Reference Range Comments POC-GLUCOSE METER (BEAKER) 128 mg/dL 70-110 TESTED AT [address] (test ycbt=0800) [facility] [address] CT, PELVIS, WO [id number] 08:42:00FINAL REPORT CT pelvis without contrast HISTORY: left groin/femoral wound infection COMPARISON: None Technique: serial axial imaging was performed without intravenous contrast asper departmental protocol. Multiplanar images are reconstructed and reviewed when indicated. ThisCT examination is performed using one or more of the following dose reduction techniques: Automated exposure control, adjustment of the mA and /or kV according to patient size, and /or use of iterative reconstruction technique. FINDINGS: The [...] stated history of left inguinal wound. No organized/ drainable fluid collection is visualized. Extensive, diffuse vascular calcifications. No aggressive osseous lesion is seen. IMPRESSION:Localized swelling within the subcutaneous fat of the bilateral inguinal regions (left greater than right) and left lower quadrant abdominal wall. No organized/ drainable fluid collection. No findings of underlying osteomyelitis. Signed: Lucho Avery MDReport Verified Date/Time: 08/16/2018 08:42:53 Reading Location: [facility] Radiology Reading Room BASIC METABOLIC [id number] 05:58:00 Test Item Value Reference Range Comments SODIUM (BEAKER) (test 137 meq/L 136-145 sdpi=902) POTASSIUM (BEAKER) (test 4.2 meq/L 3.5-5.1 byis=937) CHLORIDE (BEAKER) (test 100 meq/L 98-107 okmx=022) CO2 (BEAKER) (test 28 meq/L 22-29 lkxe=816) BLOOD UREA NITROGEN 48 mg/dL 7-21 (BEAKER) (test pqyb=675) CREATININE (BEAKER) (test 2.88 mg/dL 0.57-1.25 ygfp=723) GLUCOSE RANDOM (BEAKER) 115 mg/dL 70-105 (test sdnn=573) CALCIUM (BEAKER) (test 8.7 mg/dL 8.4-10.2 fnhx=402) EGFR (BEAKER) (test 16 mL/min/1.73 sq m ESTIMATED GFR IS NOT yxjf=1634) ACCURATE CREATININE CLEARANCE IN PREDICTING GLOMERULAR FILTRATION RATE. ESTIMATED GFR IS NOT APPLICABLE FOR DIALYSIS PATIENTS. POCT-GLUCOSE [id number] 03:05:00 Test Item Value Reference Range Comments POC-GLUCOSE METER (BEAKER) 157 mg/dL 70-110 TESTED AT [address] (test wtpp=8430) [facility] [address] POCT-GLUCOSE [id number] 20:57:00 Test Item Value Reference Range Comments POC-GLUCOSE METER (BEAKER) 106 mg/dL 70-110 TESTED AT [address] (test masy=8450) [facility] [address] POCT-GLUCOSE [id number] 18:13:00 Test Item Value Reference Range Comments POC-GLUCOSE METER (BEAKER) 237 mg/dL 70-110 TESTED AT [address] (test ubcb=4366) [place] [id number] POCT-GLUCOSE [id number] 13:47:00 Test Item Value Reference Range Comments POC-GLUCOSE METER (BEAKER) 172 mg/dL 70-110 TESTED AT [address] (test wbye=5288) [facility] [address] POCT-GLUCOSE [id number] 08:50:00 Test Item Value Reference Range Comments POC-GLUCOSE METER (BEAKER) 155 mg/dL 70-110 TESTED AT [address] (test znjg=1024) [place] [address] BASIC METABOLIC [id number] 06:36:00 Test Item Value Reference Range Comments SODIUM (BEAKER) (test 134 meq/L 136-145 wbho=930) POTASSIUM (BEAKER) (test 3.6 meq/L 3.5-5.1 uklz=749) CHLORIDE (BEAKER) (test 100 meq/L 98-107 hvtc=091) CO2 (BEAKER) (test 26 meq/L 22-29 fvfl=439) BLOOD UREA NITROGEN 47 mg/dL 7-21 (BEAKER) (test llku=856) CREATININE (BEAKER) (test 3.21 mg/dL 0.57-1.25 wkbc=504) GLUCOSE RANDOM (BEAKER) 139 mg/dL 70-105 (test rble=950) CALCIUM (BEAKER) (test 8.3 mg/dL 8.4-10.2 ucql=390) EGFR (BEAKER) (test 14 mL/min/1.73 sq m ESTIMATED GFR IS NOT obkp=3695) ACCURATE CREATININE CLEARANCE IN PREDICTING GLOMERULAR FILTRATION RATE. ESTIMATED GFR IS NOT APPLICABLE FOR DIALYSIS PATIENTS. POCT-GLUCOSE [id number] 22:53:00 Test Item Value Reference Range Comments POC-GLUCOSE METER (BEAKER) 231 mg/dL 70-110 TESTED AT [address] (test hypl=4736) [place] [address] POCT-GLUCOSE [id number] 17:51:00 Test Item Value Reference Range Comments POC-GLUCOSE METER (BEAKER) 169 mg/dL 70-110 TESTED AT [address] (test zizp=5672) [place] [address] RESPIRATORY PANEL [id number] 15:45:00 Test Item Value Reference Range Comments HUMAN METAPNEUMOVIRUS (BEAKER) (test Not detected Not detected, Equivocal msub=5970) RHINOVIRUS (BEAKER) (test qmfl=4604) Not detected Not detected, Equivocal INFLUENZA A (BEAKER) (test zsdc=1345) Not detected Not detected, Equivocal INFLUENZA A (NO SUBTYPE) (test Not detected, Equivocal lbez=2467) INFLUENZA A SUBTYPE H1 (BEAKER) (test Not detected, Equivocal hsoh=8696) INFLUENZA A SUBTYPE H3 (BEAKER) (test Not detected, Equivocal ubyh=3756) INFLUENZA A SUBTYPE H1-2009 (BEAKER) Not detected, Equivocal (test oqum=5346) INFLUENZA B (BEAKER) (test xebv=2523) Not detected Not detected, Equivocal RESPIRATORY SYNCYTIAL VIRUS (BEAKER) Not detected Not detected, Equivocal (test male=7927) PARAINFLUENZA VIRUS 1 (BEAKER) (test Not detected Not detected, Equivocal epap=2584) PARAINFLUENZA VIRUS 2 (BEAKER) (test Not detected Not detected, Equivocal qcxi=8657) PARAINFLUENZA VIRUS 3 (BEAKER) (test Not detected Not detected, Equivocal syqa=4158) PARAINFLUENZA VIRUS 4 (BEAKER) (test Not detected Not detected, Equivocal saij=6051) ADENOVIRUS (BEAKER) (test uqzo=3803) Not detected Not detected, Equivocal CORONAVIRUS 229E (BEAKER) (test Not detected Not detected, Equivocal yquw=9931) CORONAVIRUS HKU1 (BEAKER) (test Not detected Not detected, Equivocal kjol=5070) CORONAVIRUS NL63 (BEAKER) (test Not detected Not detected, Equivocal igdf=7359) CORONAVIRUS OC43 (BEAKER) (test Not detected Not detected, Equivocal zanb=9698) BORDETELLA PERTUSSIS (BEAKER) (test Not detected Not detected, Equivocal jcdj=8509) CHLAMYDOPHILA PNEUMONIAE (BEAKER) (test Not detected Not detected, Equivocal rglw=2194) MYCOPLASMA PNEUMONIAE (BEAKER) (test Not detected Not detected, Equivocal brht=9884) Other viruses and bacteria not targeted by this PCR panel cannot be excluded; therefore clinical correlation and follow up of serology, culture results, and other molecular studies is required. The results are not intended to be used as the sole means for clinical diagnosis or patient management decisions. This sample was tested at the [facility] using the [employer] Respiratory Panel. It is FDA cleared and has been verified and approved by the [facility] for clinical use on nasopharyngeal swab specimens.The performance of the [employer] has not been established in individuals who received influenza vaccine. Recent administration ofa nasal influenza vaccine may cause false positive results for Influenza A and/orInfluenza B.URINALYSIS W/ REFLEX URINE [id number] 12:32 :00 Test Item Value Reference Range Comments COLOR (BEAKER) (test jkno=789) Light Yellow CLARITY (BEAKER) (test hqfi=426) Hazy SPECIFIC GRAVITY UA (BEAKER) (test twru=270) 1.009 1.001-1.035 PH UA (BEAKER) (test vnbq=360) 6.0 5.0-8.0 PROTEIN UA (BEAKER) (test etyz=853) 30 mg/dL Negative GLUCOSE UA (BEAKER) (test dnso=450) Negative Negative KETONES UA (BEAKER) (test hhfw=992) Negative Negative BILIRUBIN UA (BEAKER) (test svva=818) Negative Negative BLOOD UA (BEAKER) (test schu=467) Small Negative NITRITE UA (BEAKER) (test emvf=064) Negative Negative LEUKOCYTE ESTERASE UA (BEAKER) (test xoig=711) Large Negative UROBILINOGEN UA (BEAKER) (test hihp=631) 0.2 mg/dL 0.2-1.0 RBC UA (BEAKER) (test szsh=111) 0 /HPF WBC UA (BEAKER) (test xgux=114) > /HPF BACTERIA (BEAKER) (test luzz=471) Many SQUAMOUS EPITHELIAL (BEAKER) (test ueml=103) < /HPF RENAL EPITHELIAL (BEAKER) (test aqtm=0587) 15 /HPF WBC CASTS (BEAKER) (test gtpl=5059) 14 /LPF SOURCE(BEAKER) (test bgyo=9803) POCT-GLUCOSE [id number] 12:29:00 Test Item Value Reference Range Comments POC-GLUCOSE METER (BEAKER) 222 mg/dL 70-110 TESTED AT [address] (test rixh=4981) [facility] [address] CBC W/PLT COUNT & AUTO [id number] 10:12:00 Test Item Value Reference Range Comments WHITE BLOOD CELL COUNT (BEAKER) (test hnuz=402) 11.6 K/ L 3.5-10.5 RED BLOOD CELL COUNT (BEAKER) (test twnp=725) 2.77 M/ L 3.93-5.22 HEMOGLOBIN (BEAKER) (test quoj=815) 8.7 GM/DL 11.2-15.7 HEMATOCRIT (BEAKER) (test uqoi=843) 27.2 % 34.1-44.9 MEAN CORPUSCULAR VOLUME (BEAKER) (test bjib=431) 98.2 fL 79.4-94.8 MEAN CORPUSCULAR HEMOGLOBIN (BEAKER) (test 31.4 pg 25.6-32.2 nnmw=182) MEAN CORPUSCULAR HEMOGLOBIN CONC (BEAKER) (test 32.0 GM/DL 32.2-35.5 bcnr=271) RED CELL DISTRIBUTION WIDTH (BEAKER) (test 17.4 % 11.7-14.4 ajvh=042) PLATELET COUNT (BEAKER) (test fwul=750) 209 K/CU MM 150-450 MEAN PLATELET VOLUME (BEAKER) (test boqg=618) 10.2 fL 9.4-12.3 NUCLEATED RED BLOOD CELLS (BEAKER) (test 1 /100 WBC 0-0 cbvk=274) (CELLAVISION MANUAL DIFF)2018-08-14 10:12:00 Test Item Value Reference Range Comments NEUTROPHILS - REL (CELLAVISION)(BEAKER) (test 86 % iryf=5048) LYMPHOCYTES - REL (CELLAVISION)(BEAKER) (test 4 % djcz=9614) MONOCYTES - REL (CELLAVISION)(BEAKER) (test 5 % xogp=5240) EOSINOPHILS - REL (CELLAVISION)(BEAKER) (test 2 % uewx=5045) METAMYELOCYTES - REL (CELLAVISION)(BEAKER) (test 2 % 0-0 mdbr=7118) MYELOCYTES - REL (CELLAVISION)(BEAKER) (test 1 % 0-0 aqwh=0012) NEUTROPHILS - ABS (CELLAVISION)(BEAKER) (test 9.98 K/ul 1.56-6.13 dsqu=9398) LYMPHOCYTES - ABS (CELLAVISION)(BEAKER) (test 0.46 K/ul 1.18-3.74 znjr=4299) MONOCYTES - ABS (CELLAVISION)(BEAKER) (test 0.58 K/uL 0.24-0.36 ckhn=6999) EOSINOPHILS - ABS (CELLAVISION)(BEAKER) (test 0.23 K/uL 0.04-0.36 ovua=9635) METAMYELOCYTES - ABS (CELLAVISION)(BEAKER) (test 0.23 K/uL 0.00-0.00 aehu=7325) MYELOCYTES-ABS (CELLAVISION)(BEAKER) (test 0.12 K/uL 0.00-0.00 xydi=0265) TOTAL COUNTED (BEAKER) (test oxap=0981) 100 MANUAL NRBC PER 100 CELLS (BEAKER) (test 1 /100 WBC 0-0 wqwp=1301) WBC MORPHOLOGY (BEAKER) (test jcvd=315) Normal PLT MORPHOLOGY (BEAKER) (test dxgc=169) Normal POLYCHROMATOPHILLIC RBCS(BEAKER) (test zhfb=354) 1+ few HYPOCHROMIA (BEAKER) (test agpl=585) 1+ few ARTIFACT (CELLAVISION)(BEAKER) (test bdqx=9772) Present PLATELET CONCENTRATION (CELLAVISION)(BEAKER) Adequate (test zzod=9061) Received comment: User comments: Slide comments:RAD, CHEST, 1 VIEW, NON [id number] 09:50:00Reason for exam:->coughShould this be performed at the bedside ?->YesFINAL REPORT CLINICAL HISTORY: cough TECHNIQUE : 1 view of the chest. COMPARISON: 08/12/2018 IMPRESSION: Mild lung base pleural- parenchymal opacity is again seen. There is minimalright lung base opacity and blunting of the right costophrenic angle. The cardiomediastinal silhouette is magnified by technique. Cervical fusion hardware is partially imaged. Signed: Su Delarosa MDReport Verified Date/Time: 08/14/2018 09:50:21 Reading Location : [facility] Reading Room POCT-GLUCOSE [id number] 08:20:00 Test Item Value Reference Range Comments POC-GLUCOSE METER (BEAKER) 126 mg/dL 70-[address] [facility] [address] [facility] (test brtp=9848) [facility] [address] COMPREHENSIVE METABOLIC [id number] 07:13:00 Test Item Value Reference Range Comments TOTAL PROTEIN (BEAKER) 5.5 gm/dL 6.0-8.3 (test qcyq=852) ALBUMIN (BEAKER) (test 3.1 g/dL 3.5-5.0 xrvv=7773) ALKALINE PHOSPHATASE 67 U/L 40-150 (BEAKER) (test yzdu=094) BILIRUBIN TOTAL (BEAKER) 0.6 mg/dL 0.2-1.2 (test ogse=691) SODIUM (BEAKER) (test 135 meq/L 136-145 ajto=368) POTASSIUM (BEAKER) (test 3.8 meq/L 3.5-5.1 rohc=097) CHLORIDE (BEAKER) (test 99 meq/L 98-107 mlkv=929) CO2 (BEAKER) (test 27 meq/L 22-29 rqhi=656) BLOOD UREA NITROGEN 45 mg/dL 7-21 (BEAKER) (test czoi=669) CREATININE (BEAKER) (test 3.56 mg/dL 0.57-1.25 mkki=984) GLUCOSE RANDOM (BEAKER) 116 mg/dL 70-105 (test iskq=577) CALCIUM (BEAKER) (test 8.5 mg/dL 8.4-10.2 cqyl=210) AST (SGOT) (BEAKER) (test 30 U/L 5-34 vijf=593) ALT (SGPT) (BEAKER) (test 18 U/L 6-55 lnli=472) EGFR (BEAKER) (test 12 mL/min/1.73 sq m ESTIMATED GFR IS NOT woyv=2248) ACCURATE CREATININE CLEARANCE IN PREDICTING GLOMERULAR FILTRATION RATE. ESTIMATED GFR IS NOT APPLICABLE FOR DIALYSIS PATIENTS. [id number] 06:59:00 Test Item Value Reference Range Comments PHOSPHORUS (BEAKER) (test zpdc=990) 2.3 mg/dL 2.3-4.7 [id number] 06:59:00 Test Item Value Reference Range Comments MAGNESIUM (BEAKER) (test vfaa=222) 2.0 mg/dL 1.6-2.6 CALCIUM, [id number] 06:47:00 Test Item Value Reference Range Comments CALCIUM IONIZED (BEAKER) (test fabb=273) 1.04 mmol/L 1.12-1.27 PH, BLOOD (BEAKER) (test adyf=3977) 7.38 POCT-GLUCOSE [id number] 23:29:00 Test Item Value Reference Range Comments POC-GLUCOSE METER (BEAKER) 196 mg/dL 70-110 TESTED AT [address] (test nomr=7758) [facility] [address] POCT-GLUCOSE [id number] 17:42:00 Test Item Value Reference Range Comments POC-GLUCOSE METER (BEAKER) 179 mg/dL 70-110 TESTED AT [address] (test fluw=8994) [facility] [address] POCT-GLUCOSE [id number] 12:19:00 Test Item Value Reference Range Comments POC-GLUCOSE METER (BEAKER) 189 mg/dL 70-110 TESTED AT [address] (test ehwa=2671) [facility] [address] POCT-GLUCOSE [id number] 08:34:00 Test Item Value Reference Range Comments POC-GLUCOSE METER (BEAKER) 119 mg/dL 70-110 TESTED AT [address] (test sagb=0243) [facility] [address] COMPREHENSIVE METABOLIC [id number] 02:54:00 Test Item Value Reference Range Comments TOTAL PROTEIN (BEAKER) 5.8 gm/dL 6.0-8.3 (test nrzn=830) ALBUMIN (BEAKER) (test 3.2 g/dL 3.5-5.0 ywzd=4613) ALKALINE PHOSPHATASE 65 U/L 40-150 (BEAKER) (test caei=060) BILIRUBIN TOTAL (BEAKER) 0.8 mg/dL 0.2-1.2 (test lmtm=992) SODIUM (BEAKER) (test 134 meq/L 136-145 ocjx=410) POTASSIUM (BEAKER) (test 3.6 meq/L 3.5-5.1 rmhe=238) CHLORIDE (BEAKER) (test 100 meq/L 98-107 srsv=713) CO2 (BEAKER) (test 25 meq/L 22-29 hwnq=741) BLOOD UREA NITROGEN 43 mg/dL 7-21 (BEAKER) (test kfdb=267) CREATININE (BEAKER) (test 3.41 mg/dL 0.57-1.25 okfu=047) GLUCOSE RANDOM (BEAKER) 90 mg/dL 70-105 (test berr=884) CALCIUM (BEAKER) (test 8.4 mg/dL 8.4-10.2 fpiz=200) AST (SGOT) (BEAKER) (test 25 U/L 5-34 jhhw=979) ALT (SGPT) (BEAKER) (test 16 U/L 6-55 civw=802) EGFR (BEAKER) (test 13 mL/min/1.73 sq m ESTIMATED GFR IS NOT sjyh=7743) ACCURATE CREATININE CLEARANCE IN PREDICTING GLOMERULAR FILTRATION RATE. ESTIMATED GFR IS NOT APPLICABLE FOR DIALYSIS PATIENTS. [id number] 02:48:00 Test Item Value Reference Range Comments PHOSPHORUS (BEAKER) (test rafc=385) 2.2 mg/dL 2.3-4.7 [id number] 02:48:00 Test Item Value Reference Range Comments MAGNESIUM (BEAKER) (test vcsl=365) 1.5 mg/dL 1.6-2.6 CALCIUM, [id number] 02:32:00 Test Item Value Reference Range Comments CALCIUM IONIZED (BEAKER) (test xmlg=736) 0.93 mmol/L 1.12-1.27 PH, BLOOD (BEAKER) (test odht=0038) 7.53 CBC W/PLT COUNT & AUTO [id number] 02:31:00 Test Item Value Reference Range Comments WHITE BLOOD CELL COUNT (BEAKER) (test tqvm=195) 12.6 K/ L 3.5-10.5 RED BLOOD CELL COUNT (BEAKER) (test glfq=705) 2.95 M/ L 3.93-5.22 HEMOGLOBIN (BEAKER) (test bppl=694) 9.3 GM/DL 11.2-15.7 HEMATOCRIT (BEAKER) (test eeca=351) 29.5 % 34.1-44.9 MEAN CORPUSCULAR VOLUME (BEAKER) (test ydqv=385) 100.0 fL 79.4-94.8 MEAN CORPUSCULAR HEMOGLOBIN (BEAKER) (test 31.5 pg 25.6-32.2 mxgw=730) MEAN CORPUSCULAR HEMOGLOBIN CONC (BEAKER) (test 31.5 GM/DL 32.2-35.5 zksw=835) RED CELL DISTRIBUTION WIDTH (BEAKER) (test 17.2 % 11.7-14.4 ttnu=919) PLATELET COUNT (BEAKER) (test udhq=306) 198 K/CU MM 150-450 MEAN PLATELET VOLUME (BEAKER) (test kuce=636) 9.9 fL 9.4-12.3 NUCLEATED RED BLOOD CELLS (BEAKER) (test 2 /100 WBC 0-0 bkqe=227) NEUTROPHILS RELATIVE PERCENT (BEAKER) (test 72 % aapc=619) LYMPHOCYTES RELATIVE PERCENT (BEAKER) (test 12 % vxdm=150) MONOCYTES RELATIVE PERCENT (BEAKER) (test 12 % rxcx=133) EOSINOPHILS RELATIVE PERCENT (BEAKER) (test 1 % muxd=587) BASOPHILS RELATIVE PERCENT (BEAKER) (test 0 % gnqd=576) NEUTROPHILS ABSOLUTE COUNT (BEAKER) (test 9.10 K/ L 1.56-6.13 rhlg=864) LYMPHOCYTES ABSOLUTE COUNT (BEAKER) (test 1.47 K/ L 1.18-3.74 hybp=555) MONOCYTES ABSOLUTE COUNT (BEAKER) (test 1.48 K/ L 0.24-0.36 tqki=412) EOSINOPHILS ABSOLUTE COUNT (BEAKER) (test 0.18 K/ L 0.04-0.36 qrlq=621) BASOPHILS ABSOLUTE COUNT (BEAKER) (test 0.04 K/ L 0.01-0.08 zkex=000) IMMATURE GRANULOCYTES-RELATIVE PERCENT (BEAKER) 3 % 0-1 (test ycou=7251) POCT-GLUCOSE [id number] 02:17:00 Test Item Value Reference Range Comments POC-GLUCOSE METER (BEAKER) 97 mg/dL 70-110 TESTED AT [address] (test uqhb=6089) [facility] [address] POCT-GLUCOSE [id number] 21:04:00 Test Item Value Reference Range Comments POC-GLUCOSE METER (BEAKER) 147 mg/dL 70-110 TESTED AT [address] (test kaaa=7985) [facility] [address] POCT-GLUCOSE [id number] 17:42:00 Test Item Value Reference Range Comments POC-GLUCOSE METER (BEAKER) 172 mg/dL 70-110 TESTED AT [address] (test gvlf=4227) [facility] [address] POCT-GLUCOSE [id number] 12:05:00 Test Item Value Reference Range Comments POC-GLUCOSE METER (BEAKER) 124 mg/dL 70-110 TESTED AT [address] (test xmuv=6316) [facility] [address] POCT-GLUCOSE [id number] 07:37:00 Test Item Value Reference Range Comments POC-GLUCOSE METER (BEAKER) 94 mg/dL 70-110 TESTED AT [address] (test xucp=7097) [facility] [address] RAD, CHEST, 1 VIEW, NON [id number] 04:50:00Reason for exam:->SOBShould this be performed at the bedside?->YesFINAL REPORT CLINICAL INDICATION: Shortness of breath Comparison: 08/11/2018 The examination is limited by lordotic positioning. The cardiomediastinal contours are stable. Central pulmonary vascular congestion and bilateral parenchymal opacities are partially improved, suggesting improving pulmonary edema. Small bilateral pleural effusions are present. There is no pneumothorax.A right IJ CVC has been removed. Signed: Ti Valdez MDReport Verified Date/Time: 08/12/2018 04:50: 01 Reading Location: [address] Reading Room POCT-GLUCOSE [id number] 04:39:00 Test Item Value Reference Range Comments POC-GLUCOSE METER (BEAKER) 107 mg/dL 70-110 TESTED AT [address] (test iwoh=7617) [facility] [address] COMPREHENSIVE METABOLIC [id number] 04:16:00 Test Item Value Reference Range Comments TOTAL PROTEIN (BEAKER) 5.6 gm/dL 6.0-8.3 (test ljlm=614) ALBUMIN (BEAKER) (test 3.2 g/dL 3.5-5.0 iyjy=9428) ALKALINE PHOSPHATASE 66 U/L 40-150 (BEAKER) (test gpcg=544) BILIRUBIN TOTAL (BEAKER) 0.6 mg/dL 0.2-1.2 (test nqnh=850) SODIUM (BEAKER) (test 136 meq/L 136-145 avfg=172) POTASSIUM (BEAKER) (test 4.0 meq/L 3.5-5.1 aglb=330) CHLORIDE (BEAKER) (test 102 meq/L 98-107 ftap=297) CO2 (BEAKER) (test 25 meq/L 22-29 rvaz=579) BLOOD UREA NITROGEN 38 mg/dL 7-21 (BEAKER) (test yrcp=383) CREATININE (BEAKER) (test 3.33 mg/dL 0.57-1.25 kums=984) GLUCOSE RANDOM (BEAKER) 105 mg/dL 70-105 (test pbey=313) CALCIUM (BEAKER) (test 8.6 mg/dL 8.4-10.2 aqvd=761) AST (SGOT) (BEAKER) (test 25 U/L 5-34 njml=819) ALT (SGPT) (BEAKER) (test 16 U/L 6-55 zevz=216) EGFR (BEAKER) (test 13 mL/min/1.73 sq m ESTIMATED GFR IS NOT mrbw=7631) ACCURATE CREATININE CLEARANCE IN PREDICTING GLOMERULAR FILTRATION RATE. ESTIMATED GFR IS NOT APPLICABLE FOR DIALYSIS PATIENTS. [id number] 04:11:00 Test Item Value Reference Range Comments PHOSPHORUS (BEAKER) (test esnv=110) 2.9 mg/dL 2.3-4.7 [id number] 04:11:00 Test Item Value Reference Range Comments MAGNESIUM (BEAKER) (test sxde=141) 1.9 mg/dL 1.6-2.6 CBC W/PLT COUNT & AUTO [id number] 03:57:00 Test Item Value Reference Range Comments WHITE BLOOD CELL COUNT (BEAKER) (test iieq=036) 12.6 K/ L 3.5-10.5 RED BLOOD CELL COUNT (BEAKER) (test vkqg=569) 2.87 M/ L 3.93-5.22 HEMOGLOBIN (BEAKER) (test hzzr=234) 9.0 GM/DL 11.2-15.7 HEMATOCRIT (BEAKER) (test ywcg=285) 28.6 % 34.1-44.9 MEAN CORPUSCULAR VOLUME (BEAKER) (test oxsa=493) 99.7 fL 79.4-94.8 MEAN CORPUSCULAR HEMOGLOBIN (BEAKER) (test 31.4 pg 25.6-32.2 ptmq=356) MEAN CORPUSCULAR HEMOGLOBIN CONC (BEAKER) (test 31.5 GM/DL 32.2-35.5 pupk=528) RED CELL DISTRIBUTION WIDTH (BEAKER) (test 16.1 % 11.7-14.4 wfhm=799) PLATELET COUNT (BEAKER) (test qvng=805) 204 K/CU MM 150-450 MEAN PLATELET VOLUME (BEAKER) (test hfsq=754) 10.5 fL 9.4-12.3 NUCLEATED RED BLOOD CELLS (BEAKER) (test 5 /100 WBC 0-0 iohj=975) NEUTROPHILS RELATIVE PERCENT (BEAKER) (test 77 % ikox=635) LYMPHOCYTES RELATIVE PERCENT (BEAKER) (test 9 % sevh=519) MONOCYTES RELATIVE PERCENT (BEAKER) (test 11 % iqld=873) EOSINOPHILS RELATIVE PERCENT (BEAKER) (test 2 % uvrj=780) BASOPHILS RELATIVE PERCENT (BEAKER) (test 0 % pxcc=596) NEUTROPHILS ABSOLUTE COUNT (BEAKER) (test 9.64 K/ L 1.56-6.13 ntoj=028) LYMPHOCYTES ABSOLUTE COUNT (BEAKER) (test 1.07 K/ L 1.18-3.74 ewgy=258) MONOCYTES ABSOLUTE COUNT (BEAKER) (test 1.34 K/ L 0.24-0.36 qdfi=483) EOSINOPHILS ABSOLUTE COUNT (BEAKER) (test 0.19 K/ L 0.04-0.36 fsmk=217) BASOPHILS ABSOLUTE COUNT (BEAKER) (test 0.03 K/ L 0.01-0.08 jecd=498) IMMATURE GRANULOCYTES-RELATIVE PERCENT (BEAKER) 2 % 0-1 (test clss=4038) CALCIUM, [id number] 03:25:00 Test Item Value Reference Range Comments CALCIUM IONIZED (BEAKER) (test eoxb=673) 1.10 mmol/L 1.12-1.27 PH, BLOOD (BEAKER) (test brih=1262) 7.43 POCT-GLUCOSE [id number] 00:03:00 Test Item Value Reference Range Comments POC-GLUCOSE METER (BEAKER) 122 mg/dL 70-110 TESTED AT [address] (test vooi=9024) [place] [id number] POCT-GLUCOSE [id number] 21:32:00 Test Item Value Reference Range Comments POC-GLUCOSE METER (BEAKER) 104 mg/dL 70-110 TESTED AT [address] (test ddqi=3391) [place] [id number] POCT-GLUCOSE [id number] 17:51:00 Test Item Value Reference Range Comments POC-GLUCOSE METER (BEAKER) 151 mg/dL 70-110 TESTED AT [address] (test fbyc=3626) [place] [id number] BASIC METABOLIC [id number] 16:24:00 Test Item Value Reference Range Comments SODIUM (BEAKER) (test 133 meq/L 136-145 ojmz=809) POTASSIUM (BEAKER) (test 4.1 meq/L 3.5-5.1 Specimen slightly qgay=359) hemolyzed CHLORIDE (BEAKER) (test 101 meq/L 98-107 aqmd=934) CO2 (BEAKER) (test 26 meq/L 22-29 ndxv=849) BLOOD UREA NITROGEN 34 mg/dL 7-21 (BEAKER) (test mimm=938) CREATININE (BEAKER) (test 3.12 mg/dL 0.57-1.25 Specimen slightly elqr=802) hemolyzed GLUCOSE RANDOM (BEAKER) 167 mg/dL 70-105 (test nyfo=561) CALCIUM (BEAKER) (test 8.4 mg/dL 8.4-10.2 kyku=458) EGFR (BEAKER) (test 14 mL/min/1.73 sq m ESTIMATED GFR IS NOT lepu=1751) ACCURATE CREATININE CLEARANCE IN PREDICTING GLOMERULAR FILTRATION RATE. ESTIMATED GFR IS NOT APPLICABLE FOR DIALYSIS PATIENTS. [id number] 16:22:00 Test Item Value Reference Range Comments MAGNESIUM (BEAKER) (test 1.8 mg/dL 1.6-2.6 Specimen slightly hemolyzed esfb=873) POCT-GLUCOSE [id number] 11:45:00 Test Item Value Reference Range Comments POC-GLUCOSE METER (BEAKER) 141 mg/dL 70-110 TESTED AT [address] (test yffu=2514) [place] [address] POCT-GLUCOSE [id number] 07:51:00 Test Item Value Reference Range Comments POC-GLUCOSE METER (BEAKER) 112 mg/dL 70-110 TESTED AT [place] [id number] [facility] (test elux=5706) [place] [id number] BASIC METABOLIC [id number] 05:18:00 Test Item Value Reference Range Comments SODIUM (BEAKER) (test 135 meq/L 136-145 ghnp=708) POTASSIUM (BEAKER) (test 4.7 meq/L 3.5-5.1 Specimen moderately sqwb=271) hemolyzed CHLORIDE (BEAKER) (test 103 meq/L 98-107 nnjp=043) CO2 (BEAKER) (test 24 meq/L 22-29 fmee=105) BLOOD UREA NITROGEN 26 mg/dL 7-21 (BEAKER) (test xnhx=823) CREATININE (BEAKER) (test 2.47 mg/dL 0.57-1.25 Specimen moderately cfgu=150) hemolyzed GLUCOSE RANDOM (BEAKER) 101 mg/dL 70-105 (test wrjw=505) CALCIUM (BEAKER) (test 8.8 mg/dL 8.4-10.2 ekpx=295) EGFR (BEAKER) (test 19 mL/min/1.73 sq m ESTIMATED GFR IS NOT akzk=8801) ACCURATE CREATININE CLEARANCE IN PREDICTING GLOMERULAR FILTRATION RATE. ESTIMATED GFR IS NOT APPLICABLE FOR DIALYSIS PATIENTS. [id number] 05:12:00 Test Item Value Reference Range Comments MAGNESIUM (BEAKER) (test 2.0 mg/dL 1.6-2.6 Specimen moderately hemolyzed qzwx=077) CBC W/PLT COUNT & AUTO [id number] 04:19:00 Test Item Value Reference Range Comments WHITE BLOOD CELL COUNT (BEAKER) (test cjvx=554) 14.3 K/ L 3.5-10.5 RED BLOOD CELL COUNT (BEAKER) (test atnv=882) 3.03 M/ L 3.93-5.22 HEMOGLOBIN (BEAKER) (test obow=258) 9.4 GM/DL 11.2-15.7 HEMATOCRIT (BEAKER) (test btzo=325) 29.2 % 34.1-44.9 MEAN CORPUSCULAR VOLUME (BEAKER) (test qrzz=820) 96.4 fL 79.4-94.8 MEAN CORPUSCULAR HEMOGLOBIN (BEAKER) (test 31.0 pg 25.6-32.2 ihcs=008) MEAN CORPUSCULAR HEMOGLOBIN CONC (BEAKER) (test 32.2 GM/DL 32.2-35.5 kjnq=133) RED CELL DISTRIBUTION WIDTH (BEAKER) (test 15.5 % 11.7-14.4 qwmp=386) PLATELET COUNT (BEAKER) (test pmci=237) 209 K/CU MM 150-450 MEAN PLATELET VOLUME (BEAKER) (test mmkp=904) 10.4 fL 9.4-12.3 NUCLEATED RED BLOOD CELLS (BEAKER) (test 4 /100 WBC 0-0 dafs=914) NEUTROPHILS RELATIVE PERCENT (BEAKER) (test 80 % azbs=767) LYMPHOCYTES RELATIVE PERCENT (BEAKER) (test 6 % jgkj=772) MONOCYTES RELATIVE PERCENT (BEAKER) (test 11 % cvwx=393) EOSINOPHILS RELATIVE PERCENT (BEAKER) (test 1 % fmlm=922) BASOPHILS RELATIVE PERCENT (BEAKER) (test 0 % ggqv=824) NEUTROPHILS ABSOLUTE COUNT (BEAKER) (test 11.46 K/ L 1.56-6.13 bujk=498) LYMPHOCYTES ABSOLUTE COUNT (BEAKER) (test 0.80 K/ L 1.18-3.74 mcfs=283) MONOCYTES ABSOLUTE COUNT (BEAKER) (test 1.60 K/ L 0.24-0.36 zngz=739) EOSINOPHILS ABSOLUTE COUNT (BEAKER) (test 0.07 K/ L 0.04-0.36 kudp=119) BASOPHILS ABSOLUTE COUNT (BEAKER) (test 0.03 K/ L 0.01-0.08 twdr=910) IMMATURE GRANULOCYTES-RELATIVE PERCENT (BEAKER) 3 % 0-1 (test qeun=3143) RAD, CHEST, 1 VIEW, NON [id number] 03:48:00Reason for exam:->SOBShould this be performed at the bedside?->YesFINAL REPORT RAD , CHEST, 1 VIEW, NON DEPT INDICATION: SOB COMPARISON: Prior day's exam FINDINGS : Portable frontal view of the chest. IMPRESSION: Support Lines: Stable. Lungs and pleura: Unchanged airspace and pleural opacities. No pneumothorax.Heart and mediastinum: Stable contours. Additional findings: None. Signed: Desire Méndez Verified Date/Time: 08/11/2018 03:48:09 POCT -GLUCOSE [id number] 23:26:00 Test Item Value Reference Range Comments POC-GLUCOSE METER (BEAKER) 101 mg/dL 70-110 TESTED AT [address] (test wnlb=4318) [place] [address] POCT-GLUCOSE [id number] 18:11:00 Test Item Value Reference Range Comments POC-GLUCOSE METER (BEAKER) 171 mg/dL 70-110 TESTED AT [address] (test rvgu=1009) [place] [address] BASIC METABOLIC [id number] 16:14:00 Test Item Value Reference Range Comments SODIUM (BEAKER) (test 134 meq/L 136-145 ehky=659) POTASSIUM (BEAKER) (test 4.6 meq/L 3.5-5.1 lnyv=892) CHLORIDE (BEAKER) (test 102 meq/L 98-107 evlh=537) CO2 (BEAKER) (test 25 meq/L 22-29 kaez=078) BLOOD UREA NITROGEN 51 mg/dL 7-21 (BEAKER) (test dejl=573) CREATININE (BEAKER) (test 3.89 mg/dL 0.57-1.25 tqrn=540) GLUCOSE RANDOM (BEAKER) 182 mg/dL 70-105 (test qodc=841) CALCIUM (BEAKER) (test 8.2 mg/dL 8.4-10.2 xben=490) EGFR (BEAKER) (test 11 mL/min/1.73 sq m ESTIMATED GFR IS NOT fwew=4274) ACCURATE CREATININE CLEARANCE IN PREDICTING GLOMERULAR FILTRATION RATE. ESTIMATED GFR IS NOT APPLICABLE FOR DIALYSIS PATIENTS. [id number] 16:07:00 Test Item Value Reference Range Comments MAGNESIUM (BEAKER) (test afgb=097) 2.0 mg/dL 1.6-2.6 LACTIC ACID, [id number] 15:23:00 Test Item Value Reference Range Comments LACTATE BLOOD ARTERIAL (2) (BEAKER) (test 0.9 mmol/L 0.5-2.2 ugkc=5974) RAD, CHEST, 1 VIEW, NON [id number] 15:07:00Reason for exam:-> hypoxemiaShould this be performed at the bedside?->YesFINAL REPORT TECHNIQUE: Frontal view of the chest. INDICATION: 78-year-old woman with hypoxemia. COMPARISON: Chest radiograph from earlier same date. FINDINGS: LINES/TUBES: Unchanged. LUNGS/PLEURA: No significant change in bilateral layering pleural effusion and adjacent bibasilar airspace opacities. No pneumothorax. HEART AND MEDIASTINUM: The cardiomediastinal silhouette is unchanged. Atherosclerotic calcifications in the thoracic aorta. SOFT TISSUES AND BONES: Unchanged fusion hardware in the cervical spine. Soft tissues are unremarkable. IMPRESSION:No significant change in bilateral pleural effusions and adjacent bibasilar airspace opacities. Signed: Rob Navarro MDReport Verified Date/Time: 08/10/2018 15:07:53 Reading Location: [facility] [id number] Consult Reading Room 03: 07 PMBLOOD GAS, [id number] 14:53:00 Test Item Value Reference Range Comments PH ARTERIAL (BEAKER) (test pcrs=873) 7.44 7.35-7.45 PCO2 ARTERIAL (BEAKER) (test acot=746) 38 mmHg 35-45 PO2 ARTERIAL (BEAKER) (test kfbf=117) 165 mmHg 80-90 O2 SATURATION ARTERIAL (BEAKER) (test hghk=261) 99.2 % 96.0-97.0 HCO3 ARTERIAL (BEAKER) (test hufg=956) 26 mmol/L 21-29 BASE EXCESS ARTERIAL (BEAKER) (test pbmo=347) 1.1 mmol/L -2.0-3.0 PATIENT TEMPERATURE (BEAKER) (test mtio=2436) 36.4 C FIO2 (BEAKER) (test ntzx=4086) 44.0 % POCT-GLUCOSE [id number] 12:20:00 Test Item Value Reference Range Comments POC-GLUCOSE METER (BEAKER) 208 mg/dL 70-110 TESTED AT [address] (test lbjb=5487) [facility] [address] CBC W/PLT COUNT & AUTO [id number] 08:56:00 Test Item Value Reference Range Comments WHITE BLOOD CELL COUNT (BEAKER) (test alop=347) 12.2 K/ L 3.5-10.5 RED BLOOD CELL COUNT (BEAKER) (test fvot=361) 2.87 M/ L 3.93-5.22 HEMOGLOBIN (BEAKER) (test bnxb=309) 8.8 GM/DL 11.2-15.7 HEMATOCRIT (BEAKER) (test skty=497) 27.4 % 34.1-44.9 MEAN CORPUSCULAR VOLUME (BEAKER) (test ggoa=005) 95.5 fL 79.4-94.8 MEAN CORPUSCULAR HEMOGLOBIN (BEAKER) (test 30.7 pg 25.6-32.2 jmjl=968) MEAN CORPUSCULAR HEMOGLOBIN CONC (BEAKER) (test 32.1 GM/DL 32.2-35.5 xfhx=056) RED CELL DISTRIBUTION WIDTH (BEAKER) (test 15.1 % 11.7-14.4 zjut=916) PLATELET COUNT (BEAKER) (test letj=672) 224 K/CU MM 150-450 MEAN PLATELET VOLUME (BEAKER) (test wloc=579) 9.8 fL 9.4-12.3 NUCLEATED RED BLOOD CELLS (BEAKER) (test 1 /100 WBC 0-0 bcsv=774) (CELLAVISION MANUAL DIFF)2018-08-10 08:56:00 Test Item Value Reference Range Comments NEUTROPHILS - REL (CELLAVISION)(BEAKER) (test 80 % dwxz=5188) LYMPHOCYTES - REL (CELLAVISION)(BEAKER) (test 7 % xnjf=9275) MONOCYTES - REL (CELLAVISION)(BEAKER) (test 10 % ceyq=5956) EOSINOPHILS - REL (CELLAVISION)(BEAKER) (test 2 % kmdu=8906) NEUTROPHILS - ABS (CELLAVISION)(BEAKER) (test 9.76 K/ul 1.56-6.13 pknh=7477) LYMPHOCYTES - ABS (CELLAVISION)(BEAKER) (test 0.85 K/ul 1.18-3.74 mkuc=1025) MONOCYTES - ABS (CELLAVISION)(BEAKER) (test 1.22 K/uL 0.24-0.36 tlyl=1535) EOSINOPHILS - ABS (CELLAVISION)(BEAKER) (test 0.24 K/uL 0.04-0.36 ydoq=9518) TOTAL COUNTED (BEAKER) (test pwdd=9566) 100 MANUAL NRBC PER 100 CELLS (BEAKER) (test 2 /100 WBC 0-0 bovb=3800) PLT MORPHOLOGY (BEAKER) (test xxuz=590) Normal TOXIC GRANULATION (BEAKER) (test amlh=877) Present POLYCHROMATOPHILLIC RBCS(BEAKER) (test xdgv=201) 1+ few ARTIFACT (CELLAVISION)(BEAKER) (test hyms=3130) Present PLATELET CONCENTRATION (CELLAVISION)(BEAKER) Adequate (test jndi=8317) Received comment: User comments: Slide comments:RAD, CHEST, 1 VIEW, NON [id number] 08:03:00Reason for exam:->SOBShould this be performed at the bedside?- >YesFINAL REPORT TECHNIQUE: Frontal view of the chest. INDICATION: 78-year-old woman with shortness of breath. COMPARISON: Chest radiograph 08/09/2018. FINDINGS: LINES/TUBES: Unchanged. LUNGS/PLEURA: Increased central pulmonary venous congestion. Hazy opacity throughout the right lung may represent increased layering pleural effusion and/or airspace opacities. Persistent retrocardiac airspace opacities and questionable small left pleural effusion. No pneumothorax. HEART AND MEDIASTINUM: The cardiomediastinal silhouette is unchanged. Atherosclerotic calcifications in the thoracic aorta. SOFT TISSUES AND BONES: Unchanged fusion hardware in the cervical spine. Unchanged chronic deformity of the right humeral head. Soft tissues are unremarkable. IMPRESSION:Increased central pulmonary venous congestion. Hazy opacity throughout the right lung may represent increased layering pleural effusion and/or airspace opacities. Otherwise, no significant change since 08/09/2018. Signed: Rob Navarro MDReport Verified Date/Time: 08:03:28 Reading Location: [facility]iology Reading Room POCT- GLUCOSE [id number] 07:51:00 Test Item Value Reference Range Comments POC-GLUCOSE METER (BEAKER) 129 mg/dL 70-110 TESTED AT [address] (test wxld=3350) [facility] [id number] POCT-GLUCOSE [id number] 06:38:00 Test Item Value Reference Range Comments POC-GLUCOSE METER (BEAKER) 193 mg/dL 70-110 TESTED AT [address] (test ulbj=9962) [facility] [id number] POCT-GLUCOSE [id number] 05:48:00 Test Item Value Reference Range Comments POC-GLUCOSE METER (BEAKER) 67 mg/dL 70-110 TESTED AT [address] (test avmr=1062) [facility] [address] BASIC METABOLIC [id number] 05:07:00 Test Item Value Reference Range Comments SODIUM (BEAKER) (test 137 meq/L 136-145 itzu=507) POTASSIUM (BEAKER) (test 4.1 meq/L 3.5-5.1 Specimen slightly gvam=446) hemolyzed CHLORIDE (BEAKER) (test 103 meq/L 98-107 qxsq=734) CO2 (BEAKER) (test 26 meq/L 22-29 yqln=149) BLOOD UREA NITROGEN 45 mg/dL 7-21 (BEAKER) (test vxba=631) CREATININE (BEAKER) (test 2.97 mg/dL 0.57-1.25 Specimen slightly fois=411) hemolyzed GLUCOSE RANDOM (BEAKER) 66 mg/dL 70-105 (test nzdz=728) CALCIUM (BEAKER) (test 9.1 mg/dL 8.4-10.2 pvjs=123) EGFR (BEAKER) (test 15 mL/min/1.73 sq m ESTIMATED GFR IS NOT yxbg=2380) ACCURATE CREATININE CLEARANCE IN PREDICTING GLOMERULAR FILTRATION RATE. ESTIMATED GFR IS NOT APPLICABLE FOR DIALYSIS PATIENTS. [id number] 05:06:00 Test Item Value Reference Range Comments MAGNESIUM (BEAKER) (test 2.0 mg/dL 1.6-2.6 Specimen slightly hemolyzed bfgk=129) POCT-GLUCOSE [id number] 20:02:00 Test Item Value Reference Range Comments POC-GLUCOSE METER (BEAKER) 95 mg/dL 70-110 TESTED AT [address] (test gsmw=9657) [place] [address] POCT-GLUCOSE [id number] 17:35:00 Test Item Value Reference Range Comments POC-GLUCOSE METER (BEAKER) 144 mg/dL 70-110 TESTED AT [address] (test ckpr=0944) [place] [address] POCT-GLUCOSE [id number] 13:42:00 Test Item Value Reference Range Comments POC-GLUCOSE METER (BEAKER) 180 mg/dL 70-110 TESTED AT [address] (test yolf=3922) [place] [address] POCT-GLUCOSE [id number] 07:56:00 Test Item Value Reference Range Comments POC-GLUCOSE METER (BEAKER) 206 mg/dL 70-110 TESTED AT [address] (test abjl=7174) [place] [address] CBC W/PLT COUNT & AUTO [id number] 06:25:00 Test Item Value Reference Range Comments WHITE BLOOD CELL COUNT (BEAKER) (test ytcq=694) 13.6 K/ L 3.5-10.5 RED BLOOD CELL COUNT (BEAKER) (test woix=862) 2.66 M/ L 3.93-5.22 HEMOGLOBIN (BEAKER) (test kvof=589) 8.2 GM/DL 11.2-15.7 HEMATOCRIT (BEAKER) (test jpsn=048) 25.5 % 34.1-44.9 MEAN CORPUSCULAR VOLUME (BEAKER) (test fuzg=084) 95.9 fL 79.4-94.8 MEAN CORPUSCULAR HEMOGLOBIN (BEAKER) (test 30.8 pg 25.6-32.2 mgpb=303) MEAN CORPUSCULAR HEMOGLOBIN CONC (BEAKER) (test 32.2 GM/DL 32.2-35.5 orng=247) RED CELL DISTRIBUTION WIDTH (BEAKER) (test 14.9 % 11.7-14.4 spxe=720) PLATELET COUNT (BEAKER) (test pmwu=955) 278 K/CU MM 150-450 MEAN PLATELET VOLUME (BEAKER) (test from=917) 10.2 fL 9.4-12.3 NUCLEATED RED BLOOD CELLS (BEAKER) (test 0 /100 WBC 0-0 jkys=894) NEUTROPHILS RELATIVE PERCENT (BEAKER) (test 82 % sxax=018) LYMPHOCYTES RELATIVE PERCENT (BEAKER) (test 5 % aezq=637) MONOCYTES RELATIVE PERCENT (BEAKER) (test 13 % vudx=747) EOSINOPHILS RELATIVE PERCENT (BEAKER) (test 0 % lzbz=928) BASOPHILS RELATIVE PERCENT (BEAKER) (test 0 % mnuj=294) NEUTROPHILS ABSOLUTE COUNT (BEAKER) (test 11.05 K/ L 1.56-6.13 msok=781) LYMPHOCYTES ABSOLUTE COUNT (BEAKER) (test 0.63 K/ L 1.18-3.74 sbdm=380) MONOCYTES ABSOLUTE COUNT (BEAKER) (test 1.74 K/ L 0.24-0.36 uqrs=745) EOSINOPHILS ABSOLUTE COUNT (BEAKER) (test 0.00 K/ L 0.04-0.36 cmbl=109) BASOPHILS ABSOLUTE COUNT (BEAKER) (test 0.01 K/ L 0.01-0.08 zwqy=636) IMMATURE GRANULOCYTES-RELATIVE PERCENT (BEAKER) 1 % 0-1 (test bwoz=4226) BASIC METABOLIC [id number] 06:22:00 Test Item Value Reference Range Comments SODIUM (BEAKER) (test 135 meq/L 136-145 ncjx=279) POTASSIUM (BEAKER) (test 4.8 meq/L 3.5-5.1 Specimen moderately vahq=296) hemolyzed CHLORIDE (BEAKER) (test 102 meq/L 98-107 fgeu=346) CO2 (BEAKER) (test 18 meq/L 22-29 ewoj=170) BLOOD UREA NITROGEN 84 mg/dL 7-21 (BEAKER) (test dxgn=228) CREATININE (BEAKER) (test 4.72 mg/dL 0.57-1.25 Specimen moderately qtvx=678) hemolyzed GLUCOSE RANDOM (BEAKER) 205 mg/dL 70-105 (test blon=859) CALCIUM (BEAKER) (test 8.5 mg/dL 8.4-10.2 lsul=344) EGFR (BEAKER) (test 9 mL/min/1.73 sq m ESTIMATED GFR IS NOT qmqj=0362) ACCURATE CREATININE CLEARANCE IN PREDICTING GLOMERULAR FILTRATION RATE. ESTIMATED GFR IS NOT APPLICABLE FOR DIALYSIS PATIENTS. RAD, CHEST, 1 VIEW, NON [id number] 05:59:00Reason for exam:->SOBShould this be performed at the bedside?->YesFINAL REPORT RAD , CHEST, 1 VIEW, NON DEPT INDICATION: SOB COMPARISON: Prior day's exam FINDINGS : Portable frontal view of the chest. IMPRESSION: Support Lines: Stable. Lungs and pleura: Slight interval increase in interstitial pulmonary edema. Unchanged left retrocardiac airspace opacity and partial right middle lobe collapse. Small bilateral left greater than right pleural effusions. No pneumothorax.Heart and mediastinum: Stable contours. Additional findings: Postsurgical changes of the cervical spine. Signed: Desire Méndezort Verified Date/Time: 08/09/2018 05:59:24 POCT-GLUCOSE [id number] 22:05:00 Test Item Value Reference Range Comments POC-GLUCOSE METER (BEAKER) 254 mg/dL 70-[address] [facility] [address] [facility] (test mdki=5029) [facility] [address] POCT-GLUCOSE [id number] 18:33:00 Test Item Value Reference Range Comments POC-GLUCOSE METER (BEAKER) 271 mg/dL 70-[address] [facility] [address] [facility] (test qwor=7713) [facility] [address] RAD, CHEST, 1 VIEW, NON [id number] 15:44:00Reason for exam:->IABP placementShould this be performed at the bedside?->YesFINAL REPORT EXAM: Frontal chest radiograph HISTORY PROVIDED: IABP placement COMPARISON: 08/08/2018 at 1316 IMPRESSION:The IABP has been repositioned with the radiopaque marker atapproximately the level of the superior aspect of the aortic arch. The remainder of the examination is unchanged with no significant change in pulmonary edema, left greater than right bilateral pleuraleffusions, and bilateral mid and lower lung zone opacities. No discernible pneumothorax. Cardiomediastinal contours are stable. Unchanged right IJ central venous catheter position. No acute osseous abnormality. Stable deformity of the right humeral head and postsurgical changes of the lower cervical spine. Signed: [facility] Tracey [facility] Verified Date/Time: 08/08/2018 15:44:27 Reading Location: [facility] Mammo Reading Room RAD, CHEST, 1 VIEW, NON [id number] 13:42: 00Reason for exam:->IABP positionShould this be performed at the bedside?-&gt ;YesFINAL REPORT EXAM: Frontal chest radiograph HISTORY PROVIDED: IABP position COMPARISON: 08/08/2018 at 0449 IMPRESSION:The IABP marker projects approximately 10 cm below the superior aspect of the aortic arch. Unchanged positioning of the right IJ central venous catheter. There dominik small left pleural effusion and retrocardiac opacification representing pleural fluid and adjacentatelectasis or consolidation. Bilateral pulmonary vascular congestion and interstitial opacities arecompatible with edema. There may be a trace right pleural effusion. No discernible pneumothorax. Thecardiac silhouette remains enlarged. No acute osseous abnormality. There is stable deformity of the right humeral head. The bones appear demineralized. Signed: Heather Traceyort Verified Date/Time: 08/08/2018 13:42:06 Reading Location: [facility] Mammo Reading Room POCT-GLUCOSE [id number] 13:28:00 Test Item Value Reference Range Comments POC-GLUCOSE METER (BEAKER) 294 mg/dL 70-110 TESTED AT [address] (test kgvx=5254) [place] [address] RAD, CHEST, 1 VIEW, NON [id number] 08:20:00Reason for exam:->SOBShould this be performed at the bedside?->YesFINAL REPORT Comparison: 08/07/2018 TECHNIQUE: Single view of the chest FINDINGS: There is mild vascular congestion. Small pleural effusions are again noted, stable. No gross new lung parenchymal changes. Tip of recently placed right internal jugular central line projects in the SVC. Intra-aortic pump marker projects in the descending thoracic aorta, approximately 2.4 cm below the ramírez. Signed: Terry Sauerort Verified Date/Time: 08/08/2018 08:20:51 Reading Location: [facility] Radiology Reading Room POCT-GLUCOSE [id number] 07:57:00 Test Item Value Reference Range Comments POC-GLUCOSE METER (BEAKER) 286 mg/dL 70-110 TESTED AT [address] (test hpsj=0166) [place] [address] CBC W/PLT COUNT & AUTO [id number] 05:11:00 Test Item Value Reference Range Comments WHITE BLOOD CELL COUNT (BEAKER) (test rset=359) 11.2 K/ L 3.5-10.5 RED BLOOD CELL COUNT (BEAKER) (test nseo=023) 2.71 M/ L 3.93-5.22 HEMOGLOBIN (BEAKER) (test vujk=629) 8.3 GM/DL 11.2-15.7 HEMATOCRIT (BEAKER) (test deio=988) 26.1 % 34.1-44.9 MEAN CORPUSCULAR VOLUME (BEAKER) (test nqil=378) 96.3 fL 79.4-94.8 MEAN CORPUSCULAR HEMOGLOBIN (BEAKER) (test 30.6 pg 25.6-32.2 eoke=644) MEAN CORPUSCULAR HEMOGLOBIN CONC (BEAKER) (test 31.8 GM/DL 32.2-35.5 agrv=472) RED CELL DISTRIBUTION WIDTH (BEAKER) (test 14.0 % 11.7-14.4 cylr=347) PLATELET COUNT (BEAKER) (test uvlb=330) 227 K/CU MM 150-450 MEAN PLATELET VOLUME (BEAKER) (test yjml=011) 10.6 fL 9.4-12.3 NUCLEATED RED BLOOD CELLS (BEAKER) (test 0 /100 WBC 0-0 sbmr=647) NEUTROPHILS RELATIVE PERCENT (BEAKER) (test 90 % xafx=091) LYMPHOCYTES RELATIVE PERCENT (BEAKER) (test 4 % lnvl=232) MONOCYTES RELATIVE PERCENT (BEAKER) (test 4 % umso=147) EOSINOPHILS RELATIVE PERCENT (BEAKER) (test 0 % ahcv=775) BASOPHILS RELATIVE PERCENT (BEAKER) (test 0 % ghlu=828) NEUTROPHILS ABSOLUTE COUNT (BEAKER) (test 10.06 K/ L 1.56-6.13 hphk=862) LYMPHOCYTES ABSOLUTE COUNT (BEAKER) (test 0.45 K/ L 1.18-3.74 lvhg=644) MONOCYTES ABSOLUTE COUNT (BEAKER) (test 0.48 K/ L 0.24-0.36 muup=030) EOSINOPHILS ABSOLUTE COUNT (BEAKER) (test 0.00 K/ L 0.04-0.36 cydz=268) BASOPHILS ABSOLUTE COUNT (BEAKER) (test 0.03 K/ L 0.01-0.08 dheu=368) IMMATURE GRANULOCYTES-RELATIVE PERCENT (BEAKER) 2 % 0-1 (test waks=2492) [id number] 04:43:00 Test Item Value Reference Range Comments MAGNESIUM (BEAKER) (test drut=422) 2.3 mg/dL 1.6-2.6 BASIC METABOLIC [id number] 04:43:00 Test Item Value Reference Range Comments SODIUM (BEAKER) (test 135 meq/L 136-145 uqpd=561) POTASSIUM (BEAKER) (test 4.9 meq/L 3.5-5.1 ivuv=584) CHLORIDE (BEAKER) (test 102 meq/L 98-107 dyea=419) CO2 (BEAKER) (test 18 meq/L 22-29 tqfh=588) BLOOD UREA NITROGEN 68 mg/dL 7-21 (BEAKER) (test exvx=776) CREATININE (BEAKER) (test 3.54 mg/dL 0.57-1.25 ydfj=657) GLUCOSE RANDOM (BEAKER) 267 mg/dL 70-105 (test glco=233) CALCIUM (BEAKER) (test 8.6 mg/dL 8.4-10.2 daqh=853) EGFR (BEAKER) (test 12 mL/min/1.73 sq m ESTIMATED GFR IS NOT hbbh=6044) ACCURATE CREATININE CLEARANCE IN PREDICTING GLOMERULAR FILTRATION RATE. ESTIMATED GFR IS NOT APPLICABLE FOR DIALYSIS PATIENTS. POCT-GLUCOSE [id number] 22:27:00 Test Item Value Reference Range Comments POC-GLUCOSE METER (BEAKER) 279 mg/dL 70-110 TESTED AT [address] (test blpx=5420) [facility] [address] BASIC METABOLIC [id number] 22:17:00 Test Item Value Reference Range Comments SODIUM (BEAKER) (test 133 meq/L 136-145 sqpp=187) POTASSIUM (BEAKER) (test 4.6 meq/L 3.5-5.1 qlzq=466) CHLORIDE (BEAKER) (test 100 meq/L 98-107 qssy=824) CO2 (BEAKER) (test 18 meq/L 22-29 yhrs=805) BLOOD UREA NITROGEN 64 mg/dL 7-21 (BEAKER) (test rsby=771) CREATININE (BEAKER) (test 3.59 mg/dL 0.57-1.25 covm=505) GLUCOSE RANDOM (BEAKER) 250 mg/dL 70-105 (test syrb=897) CALCIUM (BEAKER) (test 8.3 mg/dL 8.4-10.2 zrcs=767) EGFR (BEAKER) (test 12 mL/min/1.73 sq m ESTIMATED GFR IS NOT zvzi=7723) ACCURATE CREATININE CLEARANCE IN PREDICTING GLOMERULAR FILTRATION RATE. ESTIMATED GFR IS NOT APPLICABLE FOR DIALYSIS PATIENTS. [id number] 22:13:00 Test Item Value Reference Range Comments MAGNESIUM (BEAKER) (test uydl=241) 2.1 mg/dL 1.6-2.6 [id number] 19:37:00 Test Item Value Reference Range Comments ACTIVATED CLOTTING TIME 268 sec TESTED AT [address] (BEAKER) (test eeuq=680) [place] [id number] 18:30:00 Test Item Value Reference Range Comments ACTIVATED CLOTTING TIME 257 sec TESTED AT [address] (BEAKER) (test uyxt=916) [place] [address] [id number] 17:58:00 Test Item Value Reference Range Comments ACTIVATED CLOTTING TIME 219 sec TESTED AT [address] (BEAKER) (test ddqv=565) [place] [address] [id number] 17:58:00 Test Item Value Reference Range Comments ACTIVATED CLOTTING TIME > sec OUTSIDE MEASURING RANGETESTED AT (BEAKER) (test nchq=234) [place] [id number] POCT-GLUCOSE [id number] 12:23:00 Test Item Value Reference Range Comments POC-GLUCOSE METER (BEAKER) 169 mg/dL 70-110 TESTED AT [address] (test wtga=5041) [place] [id number] RAD, CHEST, 1 VIEW, NON [id number] 09:10:00Reason for exam:->SOBShould this be performed at the bedside?->YesFINAL REPORT Chest dated 08/07/2018 COMPARISON: 08/06/2018 Clinical Information: SOB Comment: Heart is enlarged. Pulmonary vasculature is indistinct. Interstitial disease is seen bilaterally suggestive of vascular congestion or pulmonary edema. There is small bilateral pleural effusion. IMPRESSION: No interval change. Signed: Yuan Arangoeport Verified Date/Time: 08/07/2018 09:10:23 Reading Location: [facility] Radiology Reading Room POCT-GLUCOSE [id number] 07:49:00 Test Item Value Reference Range Comments POC-GLUCOSE METER (BEAKER) 165 mg/dL 70-110 TESTED AT [address] (test tznt=3094) [facility] [address] COMPREHENSIVE METABOLIC [id number] 06:00:00 Test Item Value Reference Range Comments TOTAL PROTEIN (BEAKER) 6.0 gm/dL 6.0-8.3 (test npex=754) ALBUMIN (BEAKER) (test 3.3 g/dL 3.5-5.0 pdzz=8645) ALKALINE PHOSPHATASE 58 U/L 40-150 (BEAKER) (test woxt=590) BILIRUBIN TOTAL (BEAKER) 0.4 mg/dL 0.2-1.2 (test eqbr=652) SODIUM (BEAKER) (test 135 meq/L 136-145 npeo=008) POTASSIUM (BEAKER) (test 4.1 meq/L 3.5-5.1 ufst=356) CHLORIDE (BEAKER) (test 102 meq/L 98-107 pmnc=048) CO2 (BEAKER) (test 24 meq/L 22-29 xvmj=023) BLOOD UREA NITROGEN 52 mg/dL 7-21 (BEAKER) (test uwwv=496) CREATININE (BEAKER) (test 3.23 mg/dL 0.57-1.25 gycy=240) GLUCOSE RANDOM (BEAKER) 154 mg/dL 70-105 (test seto=844) CALCIUM (BEAKER) (test 8.3 mg/dL 8.4-10.2 crnl=724) AST (SGOT) (BEAKER) (test 31 U/L 5-34 eoko=169) ALT (SGPT) (BEAKER) (test 17 U/L 6-55 jjav=293) EGFR (BEAKER) (test 14 mL/min/1.73 sq m ESTIMATED GFR IS NOT pwzh=5931) ACCURATE CREATININE CLEARANCE IN PREDICTING GLOMERULAR FILTRATION RATE. ESTIMATED GFR IS NOT APPLICABLE FOR DIALYSIS PATIENTS. [id number] 05:56:00 Test Item Value Reference Range Comments PHOSPHORUS (BEAKER) (test qzub=797) 2.9 mg/dL 2.3-4.7 [id number] 05:56:00 Test Item Value Reference Range Comments MAGNESIUM (BEAKER) (test xpoh=494) 2.0 mg/dL 1.6-2.6 CBC W/PLT COUNT & AUTO [id number] 05:42:00 Test Item Value Reference Range Comments WHITE BLOOD CELL COUNT (BEAKER) (test ourf=316) 9.6 K/ L 3.5-10.5 RED BLOOD CELL COUNT (BEAKER) (test auly=641) 2.84 M/ L 3.93-5.22 HEMOGLOBIN (BEAKER) (test dnuw=325) 8.8 GM/DL 11.2-15.7 HEMATOCRIT (BEAKER) (test izid=138) 27.2 % 34.1-44.9 MEAN CORPUSCULAR VOLUME (BEAKER) (test pbvc=001) 95.8 fL 79.4-94.8 MEAN CORPUSCULAR HEMOGLOBIN (BEAKER) (test 31.0 pg 25.6-32.2 igpg=097) MEAN CORPUSCULAR HEMOGLOBIN CONC (BEAKER) (test 32.4 GM/DL 32.2-35.5 thqv=625) RED CELL DISTRIBUTION WIDTH (BEAKER) (test 14.1 % 11.7-14.4 lrhl=341) PLATELET COUNT (BEAKER) (test hfim=763) 218 K/CU MM 150-450 MEAN PLATELET VOLUME (BEAKER) (test hwca=642) 10.2 fL 9.4-12.3 NUCLEATED RED BLOOD CELLS (BEAKER) (test 0 /100 WBC 0-0 mqbd=255) NEUTROPHILS RELATIVE PERCENT (BEAKER) (test 76 % wgdg=248) LYMPHOCYTES RELATIVE PERCENT (BEAKER) (test 9 % alan=039) MONOCYTES RELATIVE PERCENT (BEAKER) (test 12 % sehz=083) EOSINOPHILS RELATIVE PERCENT (BEAKER) (test 1 % bodl=398) BASOPHILS RELATIVE PERCENT (BEAKER) (test 0 % gbvr=465) NEUTROPHILS ABSOLUTE COUNT (BEAKER) (test 7.35 K/ L 1.56-6.13 xupc=996) LYMPHOCYTES ABSOLUTE COUNT (BEAKER) (test 0.84 K/ L 1.18-3.74 qjew=988) MONOCYTES ABSOLUTE COUNT (BEAKER) (test 1.16 K/ L 0.24-0.36 wlke=011) EOSINOPHILS ABSOLUTE COUNT (BEAKER) (test 0.13 K/ L 0.04-0.36 egcu=786) BASOPHILS ABSOLUTE COUNT (BEAKER) (test 0.04 K/ L 0.01-0.08 syqy=896) IMMATURE GRANULOCYTES-RELATIVE PERCENT (BEAKER) 1 % 0-1 (test vlxp=2320) CALCIUM, [id number] 05:32:00 Test Item Value Reference Range Comments CALCIUM IONIZED (BEAKER) (test bjvc=961) 1.12 mmol/L 1.12-1.27 PH, BLOOD (BEAKER) (test pqnb=2367) 7.36 POCT-GLUCOSE [id number] 21:35:00 Test Item Value Reference Range Comments POC-GLUCOSE METER (BEAKER) 143 mg/dL 70-110 TESTED AT [address] (test ulpv=8361) [facility] [address] POCT-GLUCOSE [id number] 17:31:00 Test Item Value Reference Range Comments POC-GLUCOSE METER (BEAKER) 105 mg/dL 70-110 TESTED AT [address] (test ybpm=7572) [facility] [address] POCT-GLUCOSE [id number] 12:46:00 Test Item Value Reference Range Comments POC-GLUCOSE METER (BEAKER) 159 mg/dL 70-110 TESTED AT [address] (test ghzi=5777) [facility] [address] POCT-GLUCOSE [id number] 07:40:00 Test Item Value Reference Range Comments POC-GLUCOSE METER (BEAKER) 120 mg/dL 70-110 TESTED AT [address] (test hnvp=5519) [facility] [address] [id number] 04:52:00 Test Item Value Reference Range Comments MAGNESIUM (BEAKER) (test qzvt=275) 1.8 mg/dL 1.6-2.6 BASIC METABOLIC [id number] 04:52:00 Test Item Value Reference Range Comments SODIUM (BEAKER) (test 137 meq/L 136-145 klbp=138) POTASSIUM (BEAKER) (test 3.8 meq/L 3.5-5.1 jufc=237) CHLORIDE (BEAKER) (test 105 meq/L 98-107 ehpd=547) CO2 (BEAKER) (test 23 meq/L 22-29 kupm=040) BLOOD UREA NITROGEN 51 mg/dL 7-21 (BEAKER) (test pwot=852) CREATININE (BEAKER) (test 2.93 mg/dL 0.57-1.25 wbqh=191) GLUCOSE RANDOM (BEAKER) 108 mg/dL 70-105 (test oiru=955) CALCIUM (BEAKER) (test 8.4 mg/dL 8.4-10.2 wbkc=011) EGFR (BEAKER) (test 16 mL/min/1.73 sq m ESTIMATED GFR IS NOT rmpf=9485) ACCURATE CREATININE CLEARANCE IN PREDICTING GLOMERULAR FILTRATION RATE. ESTIMATED GFR IS NOT APPLICABLE FOR DIALYSIS PATIENTS. RAD, CHEST, 1 VIEW, NON [id number] 04:45:00Reason for exam:->SOBShould this be performed at the bedside?->YesFINAL REPORT EXAMINATION: AP PORTABLE CHEST RADIOGRAPH CLINICAL INDICATION: Shortness of breath. IMPRESSION: Compared with 08/05/2018 The enlarged heart, parenchymal lung opacities and superimposed pleural effusions are similar to previous and concerning for fluid overload/heart failure. The more focal basilar lung opacities may reflect passive atelectasis. Underlying pneumonia cannot be excluded. No evidence of new lung consolidation or pneumothorax. In summary, no significantinterval change. Signed: Helder Bangura MDReport Verified Date/Time: 08/06/2018 04:45:08 Reading Location: [address] Reading Room [id number] 04:31:00 Test Item Value Reference Range Comments PARTIAL THROMBOPLASTIN TIME (BEAKER) (test 45.7 seconds 22.5-36.0 cgbf=515) 4 hours after the start of continuous infusion and 4 hours after any rate changeCBC W/PLT COUNT & AUTO [id number] 04:23:00 Test Item Value Reference Range Comments WHITE BLOOD CELL COUNT (BEAKER) (test kkyc=675) 8.8 K/ L 3.5-10.5 RED BLOOD CELL COUNT (BEAKER) (test fiya=113) 2.95 M/ L 3.93-5.22 HEMOGLOBIN (BEAKER) (test neaq=796) 9.1 GM/DL 11.2-15.7 HEMATOCRIT (BEAKER) (test qcrz=975) 27.9 % 34.1-44.9 MEAN CORPUSCULAR VOLUME (BEAKER) (test nzpl=792) 94.6 fL 79.4-94.8 MEAN CORPUSCULAR HEMOGLOBIN (BEAKER) (test 30.8 pg 25.6-32.2 lyqi=430) MEAN CORPUSCULAR HEMOGLOBIN CONC (BEAKER) (test 32.6 GM/DL 32.2-35.5 ykmh=719) RED CELL DISTRIBUTION WIDTH (BEAKER) (test 13.4 % 11.7-14.4 ugnk=615) PLATELET COUNT (BEAKER) (test sfua=965) 223 K/CU MM 150-450 MEAN PLATELET VOLUME (BEAKER) (test quoz=907) 10.0 fL 9.4-12.3 NUCLEATED RED BLOOD CELLS (BEAKER) (test 0 /100 WBC 0-0 mhzv=050) NEUTROPHILS RELATIVE PERCENT (BEAKER) (test 75 % bgip=874) LYMPHOCYTES RELATIVE PERCENT (BEAKER) (test 12 % mwdh=424) MONOCYTES RELATIVE PERCENT (BEAKER) (test 10 % xnvx=617) EOSINOPHILS RELATIVE PERCENT (BEAKER) (test 2 % wxhk=297) BASOPHILS RELATIVE PERCENT (BEAKER) (test 0 % cxto=602) NEUTROPHILS ABSOLUTE COUNT (BEAKER) (test 6.55 K/ L 1.56-6.13 vxgg=196) LYMPHOCYTES ABSOLUTE COUNT (BEAKER) (test 1.08 K/ L 1.18-3.74 hodr=504) MONOCYTES ABSOLUTE COUNT (BEAKER) (test 0.89 K/ L 0.24-0.36 extl=840) EOSINOPHILS ABSOLUTE COUNT (BEAKER) (test 0.16 K/ L 0.04-0.36 tncy=945) BASOPHILS ABSOLUTE COUNT (BEAKER) (test 0.03 K/ L 0.01-0.08 bvbi=651) IMMATURE GRANULOCYTES-RELATIVE PERCENT (BEAKER) 1 % 0-1 (test silv=4674) POCT-GLUCOSE [id number] 21:47:00 Test Item Value Reference Range Comments POC-GLUCOSE METER (BEAKER) 184 mg/dL 70-110 TESTED AT [address] (test excz=0240) [facility] [address] POCT-GLUCOSE [id number] 17:15:00 Test Item Value Reference Range Comments POC-GLUCOSE METER (BEAKER) 120 mg/dL 70-110 TESTED AT [address] (test lvfi=9739) [facility] [address] POCT-GLUCOSE [id number] 12:00:00 Test Item Value Reference Range Comments POC-GLUCOSE METER (BEAKER) 226 mg/dL 70-[address] [facility] [address] [facility] (test wdtu=6303) [facility] [address] POCT-GLUCOSE [id number] 07:45:00 Test Item Value Reference Range Comments POC-GLUCOSE METER (BEAKER) 192 mg/dL 70-[address] [facility] [address] [facility] (test ucgw=0089) [facility] [address] RAD, CHEST, 1 VIEW, NON [id number] 07:45:00Reason for exam:->SOBShould this be performed at the bedside?->YesFINAL REPORT RAD , CHEST, 1 VIEW, NON DEPT INDICATION: SOB COMPARISON: Prior days exam FINDINGS: Portable frontal view of the chest. IMPRESSION: Support Lines: None. Lungs and pleura: No significant interval change in the appearance of the interspaces. Subsegmental atelectasisversus trace bilateral effusions. No pneumothorax.Heart and mediastinum: Stable contours. Additionalfindings: None. Signed: JR Hernandez Robert MDReport Verified Date/Time: 08/05/2018 07:45: 53 Reading Location: [address] Neuro Reading Room [id number] 06:25:00 Test Item Value Reference Range Comments MAGNESIUM (BEAKER) (test roqt=776) 1.8 mg/dL 1.6-2.6 BASIC METABOLIC [id number] 06:25:00 Test Item Value Reference Range Comments SODIUM (BEAKER) (test 138 meq/L 136-145 ivkb=068) POTASSIUM (BEAKER) (test 3.9 meq/L 3.5-5.1 hqgb=499) CHLORIDE (BEAKER) (test 107 meq/L 98-107 mhtb=886) CO2 (BEAKER) (test 23 meq/L 22-29 fskk=011) BLOOD UREA NITROGEN 53 mg/dL 7-21 (BEAKER) (test zrgt=930) CREATININE (BEAKER) (test 2.79 mg/dL 0.57-1.25 jkai=033) GLUCOSE RANDOM (BEAKER) 134 mg/dL 70-105 (test eeah=010) CALCIUM (BEAKER) (test 8.3 mg/dL 8.4-10.2 bacb=756) EGFR (BEAKER) (test 16 mL/min/1.73 sq m ESTIMATED GFR IS NOT uzeo=1009) ACCURATE CREATININE CLEARANCE IN PREDICTING GLOMERULAR FILTRATION RATE. ESTIMATED GFR IS NOT APPLICABLE FOR DIALYSIS PATIENTS. CBC W/PLT COUNT & AUTO [id number] 05:59:00 Test Item Value Reference Range Comments WHITE BLOOD CELL COUNT (BEAKER) (test nfvg=679) 8.1 K/ L 3.5-10.5 RED BLOOD CELL COUNT (BEAKER) (test chcp=661) 3.09 M/ L 3.93-5.22 HEMOGLOBIN (BEAKER) (test ixui=203) 9.5 GM/DL 11.2-15.7 HEMATOCRIT (BEAKER) (test husq=430) 30.1 % 34.1-44.9 MEAN CORPUSCULAR VOLUME (BEAKER) (test nrao=333) 97.4 fL 79.4-94.8 MEAN CORPUSCULAR HEMOGLOBIN (BEAKER) (test 30.7 pg 25.6-32.2 iydy=987) MEAN CORPUSCULAR HEMOGLOBIN CONC (BEAKER) (test 31.6 GM/DL 32.2-35.5 tezc=729) RED CELL DISTRIBUTION WIDTH (BEAKER) (test 13.5 % 11.7-14.4 csyt=516) PLATELET COUNT (BEAKER) (test jqyo=321) 172 K/CU MM 150-450 MEAN PLATELET VOLUME (BEAKER) (test qmja=665) 10.1 fL 9.4-12.3 NUCLEATED RED BLOOD CELLS (BEAKER) (test 0 /100 WBC 0-0 rxhh=537) NEUTROPHILS RELATIVE PERCENT (BEAKER) (test 75 % pmwg=710) LYMPHOCYTES RELATIVE PERCENT (BEAKER) (test 12 % ybol=732) MONOCYTES RELATIVE PERCENT (BEAKER) (test 11 % hzht=208) EOSINOPHILS RELATIVE PERCENT (BEAKER) (test 2 % jndc=117) BASOPHILS RELATIVE PERCENT (BEAKER) (test 0 % vrkk=198) NEUTROPHILS ABSOLUTE COUNT (BEAKER) (test 6.06 K/ L 1.56-6.13 rwbc=034) LYMPHOCYTES ABSOLUTE COUNT (BEAKER) (test 0.95 K/ L 1.18-3.74 ecjv=003) MONOCYTES ABSOLUTE COUNT (BEAKER) (test 0.85 K/ L 0.24-0.36 sfok=812) EOSINOPHILS ABSOLUTE COUNT (BEAKER) (test 0.13 K/ L 0.04-0.36 utnr=780) BASOPHILS ABSOLUTE COUNT (BEAKER) (test 0.03 K/ L 0.01-0.08 sfcy=057) IMMATURE GRANULOCYTES-RELATIVE PERCENT (BEAKER) 1 % 0-1 (test ihhl=5220) POCT-GLUCOSE [id number] 22:07:00 Test Item Value Reference Range Comments POC-GLUCOSE METER (BEAKER) 183 mg/dL 70-110 TESTED AT [address] (test jsaw=7359) [place] [address] POCT-GLUCOSE [id number] 18:23:00 Test Item Value Reference Range Comments POC-GLUCOSE METER (BEAKER) 174 mg/dL 70-110 TESTED AT [address] (test gzys=3439) [place] [address] C. DIFFICILE GDH [id number] 15:36:00 Test Item Value Reference Range Comments CDT TOXIN (test Negative Negative clqx=[id number]) CDT GDH ANTIGEN (test Positive Negative C. difficile present but toxin bbeq=[id number]) not detected. Indicates colonization with non-toxigenic strain or level of toxin below detectable levels. No need for enteric isolation. Treatment is rarely needed (only when strong clinical suspicion for Clostridium difficile infection) Testing performed by [employer] Rapid Cassette Assay. For GDH, published sensitivity of the assay is 98.7% compared to cytotoxicity testing. For Toxin AB, published sensitivity is 87.8% and specificity 99.4% compared to cytotoxicity testing.Verification of kit performance was done by the [facility] prior to clinical use.URINALYSIS W/ REFLEX URINE [id number] 15:18:00 Test Item Value Reference Range Comments COLOR (BEAKER) (test qjhc=497) Yellow CLARITY (BEAKER) (test ysfj=196) Hazy SPECIFIC GRAVITY UA (BEAKER) (test ibfe=748) 1.017 1.001-1.035 PH UA (BEAKER) (test pfzk=258) 5.5 5.0-8.0 PROTEIN UA (BEAKER) (test cueg=256) 30 mg/dL Negative GLUCOSE UA (BEAKER) (test fljm=675) Negative Negative KETONES UA (BEAKER) (test gqsw=434) Negative Negative BILIRUBIN UA (BEAKER) (test juot=496) Negative Negative BLOOD UA (BEAKER) (test ryvq=175) Trace Negative NITRITE UA (BEAKER) (test mubm=850) Negative Negative LEUKOCYTE ESTERASE UA (BEAKER) (test ctih=301) Large Negative UROBILINOGEN UA (BEAKER) (test kqdu=255) 0.2 mg/dL 0.2-1.0 RBC UA (BEAKER) (test yyua=085) 0 /HPF WBC UA (BEAKER) (test ynqs=192) 190 /HPF BACTERIA (BEAKER) (test bazj=170) Many MUCUS (BEAKER) (test jxpt=6523) Rare SQUAMOUS EPITHELIAL (BEAKER) (test wdjr=481) 1 /HPF HYALINE CASTS (BEAKER) (test ornn=559) 4 /LPF SOURCE(BEAKER) (test suik=4448) POCT-GLUCOSE [id number] 13:03:00 Test Item Value Reference Range Comments POC-GLUCOSE METER (BEAKER) 213 mg/dL 70-110 TESTED AT [address] (test gkcc=6254) [place] [address] OCCULT BLOOD, [id number] 11:58:00 Test Item Value Reference Range Comments FECAL OCCULT BLOOD (BEAKER) (test ydzi=575) Positive Negative POCT-GLUCOSE [id number] 08:00:00 Test Item Value Reference Range Comments POC-GLUCOSE METER (BEAKER) 127 mg/dL 70-110 TESTED AT [address] (test tbmm=8099) [place] [address] TROPONIN [id number] 07:07:00 Test Item Value Reference Range Comments TROPONIN I (BEAKER) (test fhlf=295) 44.85 ng/mL 0.00-0.03 Troponin I (TnI) levels must be interpreted in the context of the presenting symptoms and the clinical findings. Elevated TnI levels indicate myocardial damage, but are not specific for ischemic heart disease. Elevated TnI levels are seen in patients with other cardiac conditions (including myocarditis and congestive heart failure), and slight TnI elevations occur in patients with other conditions, including sepsis, renal failure, acidosis, acute neurological disease, and persistent tachyarrhythmia.RAD, CHEST, 1 VIEW, NON [id number] 07:00:00Reason for exam:->SOBShould this be performed at the bedside?-> YesFINAL REPORT RAD, CHEST, 1 VIEW, NON DEPT INDICATION: SOB COMPARISON: Prior day's exam FINDINGS: Portable frontal view of the chest. IMPRESSION: Support Lines: None. Lungs andpleura: Mild interstitial congestion with central predominance. Airspace disease at the left base isslightly less conspicuous in the current examination. Trace left effusion. No pneumothorax.Heart andmediastinum: Stable contours.Additional findings: None. Signed: JR Hernandez Robert MDReport Verified Date/Time: 08/04/2018 07:00: 06 Reading Location: [address] Neuro Reading Room COMPREHENSIVE METABOLIC [id number] 06:56:00 Test Item Value Reference Range Comments TOTAL PROTEIN (BEAKER) 5.7 gm/dL 6.0-8.3 (test rapl=942) ALBUMIN (BEAKER) (test 3.2 g/dL 3.5-5.0 wqso=8340) ALKALINE PHOSPHATASE 55 U/L 40-150 (BEAKER) (test fbwf=480) BILIRUBIN TOTAL (BEAKER) 0.5 mg/dL 0.2-1.2 (test zuoz=157) SODIUM (BEAKER) (test 138 meq/L 136-145 jjti=740) POTASSIUM (BEAKER) (test 3.7 meq/L 3.5-5.1 deki=651) CHLORIDE (BEAKER) (test 107 meq/L 98-107 pvan=034) CO2 (BEAKER) (test 24 meq/L 22-29 nfht=165) BLOOD UREA NITROGEN 61 mg/dL 7-21 (BEAKER) (test uigc=846) CREATININE (BEAKER) (test 2.88 mg/dL 0.57-1.25 bhnc=461) GLUCOSE RANDOM (BEAKER) 122 mg/dL 70-105 (test ubjx=342) CALCIUM (BEAKER) (test 8.1 mg/dL 8.4-10.2 uhjn=416) AST (SGOT) (BEAKER) (test 71 U/L 5-34 yusq=604) ALT (SGPT) (BEAKER) (test 23 U/L 6-55 khrv=983) EGFR (BEAKER) (test 16 mL/min/1.73 sq m ESTIMATED GFR IS NOT qhou=6051) ACCURATE CREATININE CLEARANCE IN PREDICTING GLOMERULAR FILTRATION RATE. ESTIMATED GFR IS NOT APPLICABLE FOR DIALYSIS PATIENTS. [id number] 06:55:00 Test Item Value Reference Range Comments PHOSPHORUS (BEAKER) (test flhz=258) 2.8 mg/dL 2.3-4.7 [id number] 06:55:00 Test Item Value Reference Range Comments MAGNESIUM (BEAKER) (test eyup=355) 1.9 mg/dL 1.6-2.6 CBC W/PLT COUNT & AUTO [id number] 06:12:00 Test Item Value Reference Range Comments WHITE BLOOD CELL COUNT (BEAKER) (test zekg=375) 10.1 K/ L 3.5-10.5 RED BLOOD CELL COUNT (BEAKER) (test ssqc=202) 3.03 M/ L 3.93-5.22 HEMOGLOBIN (BEAKER) (test hfir=033) 9.3 GM/DL 11.2-15.7 HEMATOCRIT (BEAKER) (test zlqx=423) 28.5 % 34.1-44.9 MEAN CORPUSCULAR VOLUME (BEAKER) (test unlf=119) 94.1 fL 79.4-94.8 MEAN CORPUSCULAR HEMOGLOBIN (BEAKER) (test 30.7 pg 25.6-32.2 ntwu=073) MEAN CORPUSCULAR HEMOGLOBIN CONC (BEAKER) (test 32.6 GM/DL 32.2-35.5 udzi=987) RED CELL DISTRIBUTION WIDTH (BEAKER) (test 13.4 % 11.7-14.4 rhrr=037) PLATELET COUNT (BEAKER) (test gppm=528) 151 K/CU MM 150-450 MEAN PLATELET VOLUME (BEAKER) (test njwm=568) 10.5 fL 9.4-12.3 NUCLEATED RED BLOOD CELLS (BEAKER) (test 0 /100 WBC 0-0 iknn=251) NEUTROPHILS RELATIVE PERCENT (BEAKER) (test 77 % koxf=476) LYMPHOCYTES RELATIVE PERCENT (BEAKER) (test 11 % siui=002) MONOCYTES RELATIVE PERCENT (BEAKER) (test 11 % zceq=981) EOSINOPHILS RELATIVE PERCENT (BEAKER) (test 1 % isdh=242) BASOPHILS RELATIVE PERCENT (BEAKER) (test 0 % tbfm=336) NEUTROPHILS ABSOLUTE COUNT (BEAKER) (test 7.78 K/ L 1.56-6.13 vtac=234) LYMPHOCYTES ABSOLUTE COUNT (BEAKER) (test 1.08 K/ L 1.18-3.74 xqng=497) MONOCYTES ABSOLUTE COUNT (BEAKER) (test 1.09 K/ L 0.24-0.36 iyky=868) EOSINOPHILS ABSOLUTE COUNT (BEAKER) (test 0.07 K/ L 0.04-0.36 szwj=151) BASOPHILS ABSOLUTE COUNT (BEAKER) (test 0.02 K/ L 0.01-0.08 waaq=056) IMMATURE GRANULOCYTES-RELATIVE PERCENT (BEAKER) 1 % 0-1 (test yhbe=6881) CALCIUM, [id number] 05:58:00 Test Item Value Reference Range Comments CALCIUM IONIZED (BEAKER) (test strm=662) 1.11 mmol/L 1.12-1.27 PH, BLOOD (BEAKER) (test vbev=3548) 7.38 POCT-GLUCOSE [id number] 22:08:00 Test Item Value Reference Range Comments POC-GLUCOSE METER (BEAKER) 163 mg/dL 70-110 TESTED AT [address] (test cpir=3638) [place] [address] POCT-GLUCOSE [id number] 18:05:00 Test Item Value Reference Range Comments POC-GLUCOSE METER (BEAKER) 215 mg/dL 70-110 TESTED AT [address] (test oetd=0503) [place] [id number] POCT-GLUCOSE [id number] 12:33:00 Test Item Value Reference Range Comments POC-GLUCOSE METER (BEAKER) 287 mg/dL 70-110 TESTED AT [address] (test dtqy=2757) [place] [address] TROPONIN [id number] 10:28:00 Test Item Value Reference Range Comments TROPONIN I (BEAKER) (test ehbz=705) 56.87 ng/mL 0.00-0.03 Troponin I (TnI) levels must be interpreted in the context of the presenting symptoms and the clinical findings. Elevated TnI levels indicate myocardial damage, but are not specific for ischemic heart disease. Elevated TnI levels are seen in patients with other cardiac conditions (including myocarditis and congestive heart failure), and slight TnI elevations occur in patients with other conditions, including sepsis, renal failure, acidosis, acute neurological disease, and persistent tachyarrhythmia.CREATINE KINASE (CK)2018-08-03 10:00:00 Test Item Value Reference Range Comments CREATINE KINASE TOTAL (BEAKER) (test eayq=221) 601 U/L 29-200 RAD, CHEST, 1 VIEW, NON [id number] 08:51:00Reason for exam:->SOBShould this be performed at the bedside?->YesFINAL REPORT TECHNIQUE: Frontal view of the chest. INDICATION: 78-year-old woman with shortness of breath. COMPARISON: Chest radiograph 08/02/2018. FINDINGS: LINES/ TUBES: Interval removal of the Impella assist device. LUNGS: Persistent bilateral interstitial opacities. Slightly decreased patchy airspace opacities in the right upper lung zone. Persistent streaky atelectasis in the left lower lung zone. PLEURA: No pneumothorax or significant pleural effusion. HEART AND MEDIASTINUM: The cardiomediastinal silhouette is unchanged. Atherosclerotic calcifications in the thoracic aorta. SOFT TISSUES AND BONES: Unchanged. IMPRESSION:Lines/tubes as above. Slightly improved airspace opacities in the right upper lung zone. Otherwise, no significant change since 08/02/2018. Signed : Rob Navarro MDReport Verified Date/Time: 08/03/2018 08:51:22 Reading Location: [facility] Radiology Reading Room [id number] 03:08:00 Test Item Value Reference Range Comments FERRITIN (BEAKER) (test cibt=146) 207 ng/mL 5-275 VITAMIN B12 AND [id number] 03:08:00 Test Item Value Reference Range Comments VITAMIN B12 (BEAKER) (test kyry=729) 212 pg/mL 213-816 FOLATE (BEAKER) (test jdap=014) 15.1 ng/mL >=7.0 COMPREHENSIVE METABOLIC [id number] 02:38:00 Test Item Value Reference Range Comments TOTAL PROTEIN (BEAKER) 5.7 gm/dL 6.0-8.3 (test vvom=363) ALBUMIN (BEAKER) (test 3.2 g/dL 3.5-5.0 ekye=2077) ALKALINE PHOSPHATASE 55 U/L 40-150 (BEAKER) (test tifq=494) BILIRUBIN TOTAL (BEAKER) 0.5 mg/dL 0.2-1.2 (test qocc=958) SODIUM (BEAKER) (test 139 meq/L 136-145 dubt=415) POTASSIUM (BEAKER) (test 4.6 meq/L 3.5-5.1 uydg=995) CHLORIDE (BEAKER) (test 107 meq/L 98-107 sojn=966) CO2 (BEAKER) (test 24 meq/L 22-29 arix=995) BLOOD UREA NITROGEN 63 mg/dL 7-21 (BEAKER) (test zloo=114) CREATININE (BEAKER) (test 2.96 mg/dL 0.57-1.25 yeow=258) GLUCOSE RANDOM (BEAKER) 205 mg/dL 70-105 (test zkbz=169) CALCIUM (BEAKER) (test 8.7 mg/dL 8.4-10.2 hsmr=531) AST (SGOT) (BEAKER) (test 138 U/L 5-34 owkq=987) ALT (SGPT) (BEAKER) (test 28 U/L 6-55 ixzx=399) EGFR (BEAKER) (test 15 mL/min/1.73 sq m ESTIMATED GFR IS NOT askd=8295) ACCURATE CREATININE CLEARANCE IN PREDICTING GLOMERULAR FILTRATION RATE. ESTIMATED GFR IS NOT APPLICABLE FOR DIALYSIS PATIENTS. [id number] 02:34:00 Test Item Value Reference Range Comments PHOSPHORUS (BEAKER) (test yxsr=194) 4.7 mg/dL 2.3-4.7 [id number] 02:34:00 Test Item Value Reference Range Comments MAGNESIUM (BEAKER) (test gbgj=894) 2.0 mg/dL 1.6-2.6 IRON, TIBC, % SAT. (WITHOUT FERRITIN)2018-08-03 02:34:00 Test Item Value Reference Range Comments IRON (BEAKER) (test hvyi=490) 27.0 ug/dL 40.0-160.0 TOTAL IRON BINDING CAPACITY (BEAKER) (test 221 ug/dL 250-450 mglq=244) IRON % SATURATION (2) (BEAKER) (test iorp=3500) 12 % 20-55 CALCIUM, [id number] 02:26:00 Test Item Value Reference Range Comments CALCIUM IONIZED (BEAKER) (test mlcb=098) 1.12 mmol/L 1.12-1.27 PH, BLOOD (BEAKER) (test wfpb=0649) 7.27 CBC W/PLT COUNT & AUTO [id number] 02:20:00 Test Item Value Reference Range Comments WHITE BLOOD CELL COUNT (BEAKER) (test iaff=948) 12.5 K/ L 3.5-10.5 RED BLOOD CELL COUNT (BEAKER) (test wnps=628) 3.39 M/ L 3.93-5.22 HEMOGLOBIN (BEAKER) (test ixfm=792) 10.4 GM/DL 11.2-15.7 HEMATOCRIT (BEAKER) (test wizy=297) 32.5 % 34.1-44.9 MEAN CORPUSCULAR VOLUME (BEAKER) (test ddtw=227) 95.9 fL 79.4-94.8 MEAN CORPUSCULAR HEMOGLOBIN (BEAKER) (test 30.7 pg 25.6-32.2 ohak=212) MEAN CORPUSCULAR HEMOGLOBIN CONC (BEAKER) (test 32.0 GM/DL 32.2-35.5 ikue=142) RED CELL DISTRIBUTION WIDTH (BEAKER) (test 13.6 % 11.7-14.4 qrpm=150) PLATELET COUNT (BEAKER) (test kymq=658) 155 K/CU MM 150-450 MEAN PLATELET VOLUME (BEAKER) (test ixnx=578) 10.4 fL 9.4-12.3 NUCLEATED RED BLOOD CELLS (BEAKER) (test 0 /100 WBC 0-0 sgat=493) NEUTROPHILS RELATIVE PERCENT (BEAKER) (test 83 % ewqa=274) LYMPHOCYTES RELATIVE PERCENT (BEAKER) (test 8 % ckty=462) MONOCYTES RELATIVE PERCENT (BEAKER) (test 9 % cohw=720) EOSINOPHILS RELATIVE PERCENT (BEAKER) (test 0 % nrob=059) BASOPHILS RELATIVE PERCENT (BEAKER) (test 0 % qglu=964) NEUTROPHILS ABSOLUTE COUNT (BEAKER) (test 10.32 K/ L 1.56-6.13 duce=013) LYMPHOCYTES ABSOLUTE COUNT (BEAKER) (test 1.01 K/ L 1.18-3.74 hbwv=194) MONOCYTES ABSOLUTE COUNT (BEAKER) (test 1.07 K/ L 0.24-0.36 oxhi=234) EOSINOPHILS ABSOLUTE COUNT (BEAKER) (test 0.01 K/ L 0.04-0.36 pmgx=047) BASOPHILS ABSOLUTE COUNT (BEAKER) (test 0.03 K/ L 0.01-0.08 kdjs=770) IMMATURE GRANULOCYTES-RELATIVE PERCENT (BEAKER) 1 % 0-1 (test dajy=2382) RETICULOCYTE [id number] 02:16:00 Test Item Value Reference Range Comments RETICULOCYTE COUNT PCT (AKER) (test imsm=535) 2.7 % 0.5-1.7 POCT-GLUCOSE [id number] 01:12:00 Test Item Value Reference Range Comments POC-GLUCOSE METER (BEAKER) 239 mg/dL 70-110 TESTED AT [address] (test gxld=7167) [place] [id number] POCT-GLUCOSE [id number] 20:38:00 Test Item Value Reference Range Comments POC-GLUCOSE METER (BEAKER) 207 mg/dL 70-110 TESTED AT [address] (test aklk=5349) [place] [id number] POCT-GLUCOSE [id number] 16:39:00 Test Item Value Reference Range Comments POC-GLUCOSE METER (BEAKER) 216 mg/dL 70-110 TESTED AT [address] (test nojk=6109) [place] [id number] 12:20:00 Test Item Value Reference Range Comments PARTIAL THROMBOPLASTIN TIME (AKER) (test 36.6 seconds 22.5-36.0 gvsn=407) 4 hours after the start of continuous infusion and 4 hours after any rate changePOCT-GLUCOSE [id number] 12:03:00 Test Item Value Reference Range Comments POC-GLUCOSE METER (BEAKER) 206 mg/dL 70-110 TESTED AT [address] (test kssy=9374) [place] [id number] POCT-GLUCOSE [id number] 12:03:00 Test Item Value Reference Range Comments POC-GLUCOSE METER (BEAKER) 193 mg/dL 70-[address] [facility] [address] [facility] (test draw=0766) [facility] [address] POCT-GLUCOSE [id number] 12:02:00 Test Item Value Reference Range Comments POC-GLUCOSE METER (BEAKER) 234 mg/dL 70-[address] [facility] [address] [facility] (test ltqg=9790) [facility] [address] POCT-GLUCOSE [id number] 12:02:00 Test Item Value Reference Range Comments POC-GLUCOSE METER (BEAKER) 211 mg/dL 70-110 TESTED AT [place] [id number] [facility] (test udrj=1735) [facility] [address] U/S, RENAL, [id number] 08:45:00Reason for exam:->CKDFINAL REPORT TECHNIQUE: Grayscale ultrasound of the kidneys and bladder. INDICATION: 78-year-old woman with chronic kidney disease. COMPARISON: None. FINDINGS: RIGHT KIDNEY: Theright kidney measures 9.3 cm. Cortical thickness measures 1.2 cm. No solid mass lesions. No hydronephrosis. 0.7 and 0.5 cm echogenic foci in the interpolar region with posterior acoustic shadowing , suggestive of nonobstructing calculi. Renal artery and vein are patent. LEFT KIDNEY: The left kidney measures 8.7 cm. Cortical thickness measures 1 cm. No solid mass lesions. 1.1 x 1.2 x 1.4 cm cyst in theupper pole. No hydronephrosis. A normal renal artery waveform is not clearly identified. Renal vein is patent. BLADDER: The bladder is decompressed by Alvarado catheter. IMPRESSION:Suspected nonobstructing right renal calculi. Otherwise, both kidneys are unremarkable. A normal left renal artery waveformis not clearly identified. Differential considerations include technical difficulties in finding therenal artery and renal vascular pathology. If there is concern for renal vascular pathology, then CTA or MRA may be obtained for further evaluation. Signed: Rob Navarro Verified Date/Time: 08/02/2018 08: 45:50 Reading Location: [address] Radiology Reading Room Electronically signedby: ROB NAVARRO MD on 08/02/2018 08:45 AMPOCT-GLUCOSE [id number] 08:25:00 Test Item Value Reference Range Comments POC-GLUCOSE METER (BEAKER) 237 mg/dL 70-[address] [facility] [address] [place] [address] (test wowm=9066) [facility] [address] [id number] 08:19:00 Test Item Value Reference Range Comments PARTIAL THROMBOPLASTIN TIME (BEAKER) (test 38.2 seconds 22.5-36.0 mslf=188) 4 hours after the start of continuous infusion and 4 hours after any rate changePOCT-GLUCOSE [id number] 07:14:00 Test Item Value Reference Range Comments POC-GLUCOSE METER (BEAKER) 246 mg/dL 70-110 TESTED AT [address] (test jeaf=8710) [facility] [address] COMPREHENSIVE METABOLIC [id number] 04:58:00 Test Item Value Reference Range Comments TOTAL PROTEIN (BEAKER) 5.5 gm/dL 6.0-8.3 Specimen slightly (test ncur=759) hemolyzed ALBUMIN (BEAKER) (test 3.1 g/dL 3.5-5.0 Specimen slightly xpww=1883) hemolyzed ALKALINE PHOSPHATASE 54 U/L 40-150 (BEAKER) (test gjen=854) BILIRUBIN TOTAL (BEAKER) 0.7 mg/dL 0.2-1.2 Specimen slightly (test luim=054) hemolyzed SODIUM (BEAKER) (test 135 meq/L 136-145 qyku=590) POTASSIUM (BEAKER) (test 4.8 meq/L 3.5-5.1 Specimen slightly bgoj=655) hemolyzed CHLORIDE (BEAKER) (test 108 meq/L 98-107 azaq=907) CO2 (BEAKER) (test 18 meq/L 22-29 fixe=185) BLOOD UREA NITROGEN 57 mg/dL 7-21 (BEAKER) (test qjzv=447) CREATININE (BEAKER) (test 2.27 mg/dL 0.57-1.25 Specimen slightly mebr=787) hemolyzed GLUCOSE RANDOM (BEAKER) 289 mg/dL 70-105 (test exih=202) CALCIUM (BEAKER) (test 8.6 mg/dL 8.4-10.2 ypvg=699) AST (SGOT) (BEAKER) (test 94 U/L 5-34 Specimen slightly jjva=193) hemolyzed ALT (SGPT) (BEAKER) (test 20 U/L 6-55 Specimen slightly vpzw=706) hemolyzed EGFR (BEAKER) (test 21 mL/min/1.73 sq m ESTIMATED GFR IS NOT emyh=1866) ACCURATE CREATININE CLEARANCE IN PREDICTING GLOMERULAR FILTRATION RATE. ESTIMATED GFR IS NOT APPLICABLE FOR DIALYSIS PATIENTS. [id number] 04:52:00 Test Item Value Reference Range Comments PARTIAL THROMBOPLASTIN TIME (BEAKER) (test 37.5 seconds 22.5-36.0 rwef=294) 4 hours after the start of continuous infusion and 4 hours after any rate changeRAD, CHEST, 1 VIEW, NON [id number] 04:44:00Reason for exam:-> impella positionShould this be performed at the bedside?->YesFINAL REPORT RAD, CHEST, 1 VIEW, NON DEPT INDICATION: impella position COMPARISON: August 01, 2018 FINDINGS: Portable frontal view of the chest. IMPRESSION: Support Lines: Impella device tip projects over the left ventricle with proximal marker at the level of the aortic arch.Lungs and pleura : Interval increase in bilateral interstitial and parenchymal opacities, likely pulmonary edema or possibly pneumonia. Small pleural effusions, greater on the right suspected. No pneumothorax.Heart and mediastinum: Stable cardiomediastinal contour. Additional findings: None. Signed: Ochoa Wiley MDReport Verified Date/Time: 08/02/2018 04:44:47 B-TYPE NATRIURETIC FACTOR (BNP) 2018-08-02 04:41:00 Test Item Value Reference Range Comments B-TYPE NATRIURETIC PEPTIDE (BEAKER) (test 1452 pg/mL 0-100 lgxb=351) [id number] 04:40:00 Test Item Value Reference Range Comments MAGNESIUM (BEAKER) (test 2.0 mg/dL 1.6-2.6 Specimen slightly hemolyzed qhrm=586) [id number] 04:40:00 Test Item Value Reference Range Comments PHOSPHORUS (BEAKER) (test 4.7 mg/dL 2.3-4.7 Specimen slightly hemolyzed iked=021) URIC [id number] 04:40:00 Test Item Value Reference Range Comments URIC ACID (BEAKER) (test 9.1 mg/dL 2.6-7.2 Specimen slightly hemolyzed rcpo=592) LACTIC ACID, [id number] 04:31:00 Test Item Value Reference Range Comments LACTATE BLOOD ARTERIAL (2) 0.9 mmol/L 0.5-2.2 Specimen slightly hemolyzed (BEAKER) (test ixch=1101) BLOOD GAS, [id number] 04:25:00 Test Item Value Reference Range Comments PH ARTERIAL (BEAKER) (test jlhf=278) 7.31 7.35-7.45 PCO2 ARTERIAL (BEAKER) (test ivef=467) 40 mmHg 35-45 PO2 ARTERIAL (BEAKER) (test acfu=985) 90 mmHg 80-90 O2 SATURATION ARTERIAL (BEAKER) (test zrbe=798) 96.3 % 96.0-97.0 HCO3 ARTERIAL (BEAKER) (test ywzd=479) 20 mmol/L 21-29 BASE EXCESS ARTERIAL (BEAKER) (test sghn=195) -6.1 mmol/L -2.0-3.0 PATIENT TEMPERATURE (BEAKER) (test nyow=8247) 36.7 C FIO2 (BEAKER) (test cyfb=1212) 36.0 % GLUCOSE-STAT [id number] 04:25:00 Test Item Value Reference Range Comments GLUCOSE RANDOM (BEAKER) (test ttsv=047) 272 mg/dL 70-110 HGB/HCT (H&H) - STAT [id number] 04:25:00 Test Item Value Reference Range Comments HEMOGLOBIN (BEAKER) (test gmdm=707) 10.9 g/dL 12.0-15.0 HEMATOCRIT (BEAKER) (test pwjg=475) 32.0 % 36.0-45.0 CBC W/PLT COUNT & AUTO [id number] 04:24:00 Test Item Value Reference Range Comments WHITE BLOOD CELL COUNT (BEAKER) (test lftz=040) 14.8 K/ L 3.5-10.5 RED BLOOD CELL COUNT (BEAKER) (test nicy=071) 3.43 M/ L 3.93-5.22 HEMOGLOBIN (BEAKER) (test mhgq=855) 10.3 GM/DL 11.2-15.7 HEMATOCRIT (BEAKER) (test qete=624) 32.3 % 34.1-44.9 MEAN CORPUSCULAR VOLUME (BEAKER) (test lped=857) 94.2 fL 79.4-94.8 MEAN CORPUSCULAR HEMOGLOBIN (BEAKER) (test 30.0 pg 25.6-32.2 jpho=809) MEAN CORPUSCULAR HEMOGLOBIN CONC (BEAKER) (test 31.9 GM/DL 32.2-35.5 bebq=076) RED CELL DISTRIBUTION WIDTH (BEAKER) (test 13.2 % 11.7-14.4 azud=771) PLATELET COUNT (BEAKER) (test iikh=973) 171 K/CU MM 150-450 MEAN PLATELET VOLUME (BEAKER) (test yald=669) 10.1 fL 9.4-12.3 NUCLEATED RED BLOOD CELLS (BEAKER) (test 0 /100 WBC 0-0 ubjd=606) NEUTROPHILS RELATIVE PERCENT (BEAKER) (test 84 % nvxk=286) LYMPHOCYTES RELATIVE PERCENT (BEAKER) (test 9 % yyfl=977) MONOCYTES RELATIVE PERCENT (BEAKER) (test 7 % jpbh=001) EOSINOPHILS RELATIVE PERCENT (BEAKER) (test 0 % qxgc=491) BASOPHILS RELATIVE PERCENT (BEAKER) (test 0 % qnlr=138) NEUTROPHILS ABSOLUTE COUNT (BEAKER) (test 12.38 K/ L 1.56-6.13 niif=126) LYMPHOCYTES ABSOLUTE COUNT (BEAKER) (test 1.30 K/ L 1.18-3.74 jfzh=028) MONOCYTES ABSOLUTE COUNT (BEAKER) (test 1.04 K/ L 0.24-0.36 cgbb=167) EOSINOPHILS ABSOLUTE COUNT (BEAKER) (test 0.00 K/ L 0.04-0.36 xruc=187) BASOPHILS ABSOLUTE COUNT (BEAKER) (test 0.02 K/ L 0.01-0.08 nzec=318) IMMATURE GRANULOCYTES-RELATIVE PERCENT (BEAKER) 1 % 0-1 (test kvdu=3107) CALCIUM, [id number] 04:22:00 Test Item Value Reference Range Comments CALCIUM IONIZED (BEAKER) (test emau=817) 1.20 mmol/L 1.12-1.27 PH, BLOOD (BEAKER) (test ofwm=2130) 7.31 SODIUM NA-STAT [id number] 04:21:00 Test Item Value Reference Range Comments SODIUM (BEAKER) (test onyj=522) 136 meq/L 135-148 POTASSIUM-STAT [id number] 04:21:00 Test Item Value Reference Range Comments POTASSIUM (BEAKER) (test wild=707) 4.6 meq/L 3.6-5.5 LACTIC ACID, [id number] 00:13:00 Test Item Value Reference Range Comments LACTATE BLOOD ARTERIAL (2) (BEAKER) (test 0.7 mmol/L 0.5-2.2 iark=5103) SODIUM NA-STAT [id number] 23:59:00 Test Item Value Reference Range Comments SODIUM (BEAKER) (test batr=102) 136 meq/L 135-148 POTASSIUM-STAT [id number] 23:59:00 Test Item Value Reference Range Comments POTASSIUM (BEAKER) (test wjhb=084) 4.8 meq/L 3.6-5.5 BLOOD GAS, [id number] 23:59:00 Test Item Value Reference Range Comments PH ARTERIAL (BEAKER) (test cghf=422) 7.31 7.35-7.45 PCO2 ARTERIAL (BEAKER) (test ezca=918) 42 mmHg 35-45 PO2 ARTERIAL (BEAKER) (test wjmi=180) 78 mmHg 80-90 O2 SATURATION ARTERIAL (BEAKER) (test xanx=809) 94.7 % 96.0-97.0 HCO3 ARTERIAL (BEAKER) (test wppu=309) 21 mmol/L 21-29 BASE EXCESS ARTERIAL (BEAKER) (test pvfq=391) -5.2 mmol/L -2.0-3.0 PATIENT TEMPERATURE (BEAKER) (test sibo=8408) 36.7 C FIO2 (BEAKER) (test gudb=6621) 36.0 % GLUCOSE-STAT [id number] 23:59:00 Test Item Value Reference Range Comments GLUCOSE RANDOM (BEAKER) (test flle=125) 275 mg/dL 70-110 HGB/HCT (H&H) - STAT [id number] 23:59:00 Test Item Value Reference Range Comments HEMOGLOBIN (BEAKER) (test zvex=519) 11.3 g/dL 12.0-15.0 HEMATOCRIT (BEAKER) (test gjtn=930) 33.0 % 36.0-45.0 [id number] 21:53:00 Test Item Value Reference Range Comments PARTIAL THROMBOPLASTIN TIME (BEAKER) (test 63.4 seconds 22.5-36.0 bpiv=042) 4 hours after the start of continuous infusion and 4 hours after any rate changeCOMPREHENSIVE METABOLIC [id number] 19:43:00 Test Item Value Reference Range Comments TOTAL PROTEIN (BEAKER) 5.8 gm/dL 6.0-8.3 Specimen slightly (test szud=628) hemolyzed ALBUMIN (BEAKER) (test 3.3 g/dL 3.5-5.0 Specimen slightly abme=5457) hemolyzed ALKALINE PHOSPHATASE 57 U/L 40-150 (BEAKER) (test xgiw=299) BILIRUBIN TOTAL (BEAKER) 0.9 mg/dL 0.2-1.2 Specimen slightly (test jpte=538) hemolyzed SODIUM (BEAKER) (test 137 meq/L 136-145 mrkq=621) POTASSIUM (BEAKER) (test 4.8 meq/L 3.5-5.1 Specimen slightly rzgb=378) hemolyzed CHLORIDE (BEAKER) (test 109 meq/L 98-107 yjlj=594) CO2 (BEAKER) (test 20 meq/L 22-29 jkfa=381) BLOOD UREA NITROGEN 56 mg/dL 7-21 (BEAKER) (test aajy=305) CREATININE (BEAKER) (test 2.26 mg/dL 0.57-1.25 Specimen slightly pmus=517) hemolyzed GLUCOSE RANDOM (BEAKER) 235 mg/dL 70-105 (test spku=057) CALCIUM (BEAKER) (test 9.2 mg/dL 8.4-10.2 cqct=912) AST (SGOT) (BEAKER) (test 27 U/L 5-34 Specimen slightly fxsp=968) hemolyzed ALT (SGPT) (BEAKER) (test 13 U/L 6-55 Specimen slightly igol=537) hemolyzed EGFR (BEAKER) (test 21 mL/min/1.73 sq m ESTIMATED GFR IS NOT fosh=2273) ACCURATE CREATININE CLEARANCE IN PREDICTING GLOMERULAR FILTRATION RATE. ESTIMATED GFR IS NOT APPLICABLE FOR DIALYSIS PATIENTS. Call k > 5, [id number] 19:41:00 Test Item Value Reference Range Comments SODIUM (BEAKER) (test umgp=222) 137 meq/L 136-145 POTASSIUM (BEAKER) (test 4.8 meq/L 3.5-5.1 Specimen slightly hemolyzed zmtt=601) CHLORIDE (BEAKER) (test 109 meq/L 98-107 gxpn=668) CO2 (BEAKER) (test uqds=352) 20 meq/L - Call k > 5, [id number] 19:37:00 Test Item Value Reference Range Comments PROTIME (BEAKER) (test gmpv=151) 33.9 seconds 11.9-14.2 INR (BEAKER) (test zprt=697) 3.6 <=5.9 PARTIAL THROMBOPLASTIN TIME (BEAKER) (test 85.5 seconds 22.5-36.0 vidc=935) Effective 07/18/2018: PT Reference Range ChangeNew: 11.9-14.2 Previous: 11.7- 14.7RECOMMENDED COUMADIN/WARFARIN INR THERAPY RANGESSTANDARD DOSE: 2.0-3.0 Includes: PROPHYLAXIS for venous thrombosis, systemic embolization; TREATMENT for venous thrombosis and/or pulmonary embolus.HIGH RISK: Target INR is2.5-3.5 for patients wiht mechanical heart valves.[id number] 19:36:00 Test Item Value Reference Range Comments FIBRINOGEN LEVEL (BEAKER) (test sptr=068) 336 mg/dl 225-434 LACTIC ACID, [id number] 19:34:00 Test Item Value Reference Range Comments LACTATE BLOOD ARTERIAL (2) 1.3 mmol/L 0.5-2.2 Specimen slightly hemolyzed (BEAKER) (test opwx=4335) CBC (HEMOGRAM ONLY)[id number] 19:23:00 Test Item Value Reference Range Comments WHITE BLOOD CELL COUNT (BEAKER) (test gagn=967) 14.1 K/ L 3.5-10.5 RED BLOOD CELL COUNT (BEAKER) (test rvea=878) 3.68 M/ L 3.93-5.22 HEMOGLOBIN (BEAKER) (test woqf=947) 11.3 GM/DL 11.2-15.7 HEMATOCRIT (BEAKER) (test fxhe=335) 34.6 % 34.1-44.9 MEAN CORPUSCULAR VOLUME (BEAKER) (test brjk=784) 94.0 fL 79.4-94.8 MEAN CORPUSCULAR HEMOGLOBIN (BEAKER) (test 30.7 pg 25.6-32.2 ypqw=279) MEAN CORPUSCULAR HEMOGLOBIN CONC (BEAKER) (test 32.7 GM/DL 32.2-35.5 flyq=247) RED CELL DISTRIBUTION WIDTH (BEAKER) (test 13.1 % 11.7-14.4 tduu=767) PLATELET COUNT (BEAKER) (test hxch=904) 207 K/CU MM 150-450 MEAN PLATELET VOLUME (BEAKER) (test hryx=095) 9.9 fL 9.4-12.3 NUCLEATED RED BLOOD CELLS (BEAKER) (test 0 /100 WBC 0-0 qnwn=198) BLOOD GAS, [id number] 19:16:00 Test Item Value Reference Range Comments PH ARTERIAL (BEAKER) (test psrf=317) 7.35 7.35-7.45 PCO2 ARTERIAL (BEAKER) (test vcni=623) 39 mmHg 35-45 PO2 ARTERIAL (BEAKER) (test krya=350) 50 mmHg 80-90 O2 SATURATION ARTERIAL (BEAKER) (test bpge=981) 84.5 % 96.0-97.0 HCO3 ARTERIAL (BEAKER) (test kagn=705) 21 mmol/L 21-29 BASE EXCESS ARTERIAL (BEAKER) (test jwuc=093) -4.5 mmol/L -2.0-3.0 PATIENT TEMPERATURE (BEAKER) (test sdds=6184) 36.7 C FIO2 (BEAKER) (test qxhk=9764) 36.0 % GLUCOSE-STAT [id number] 19:16:00 Test Item Value Reference Range Comments GLUCOSE RANDOM (BEAKER) (test ydmj=076) 231 mg/dL 70-110 HGB/HCT (H&H) - STAT [id number] 19:16:00 Test Item Value Reference Range Comments HEMOGLOBIN (BEAKER) (test knge=915) 11.5 g/dL 12.0-15.0 HEMATOCRIT (BEAKER) (test nbni=230) 34.0 % 36.0-45.0 CALCIUM, [id number] 19:15:00 Test Item Value Reference Range Comments CALCIUM IONIZED (BEAKER) (test ltyo=625) 1.26 mmol/L 1.12-1.27 PH, BLOOD (BEAKER) (test bfuh=6234) 7.35 OXYGEN SATURATION, [id number] 19:14:00 Test Item Value Reference Range Comments O2 SATURATION (MEASURED) (BEAKER) (test mrpv=0723) 41.9 % SODIUM NA-STAT [id number] 19:14:00 Test Item Value Reference Range Comments SODIUM (BEAKER) (test itnh=008) 138 meq/L 135-148 POTASSIUM-STAT [id number] 19:14:00 Test Item Value Reference Range Comments POTASSIUM (BEAKER) (test wnlu=280) 4.7 meq/L 3.6-5.5 [id number] 16:45:00 Test Item Value Reference Range Comments ACTIVATED CLOTTING TIME [address] [facility] [address] [place] [address] (BEAKER) (test rbqr=590) [facility] [address] HEMOGLOBIN AND [id number] 16:38:00 Test Item Value Reference Range Comments HEMOGLOBIN (BEAKER) (test suna=185) 10.1 GM/DL 11.2-15.7 HEMATOCRIT (BEAKER) (test itiw=646) 31.6 % 34.1-44.9 PLATELET AGGREGATION: FUNCTION [id number] 16:05:00 Test Item Value Reference Range Comments WEAK ADP RESULT(BEAKER) (test 34 % 60-91 ahcz=2374) PLATELET FUNCTION SCREEN 0-39% indicates marked platelet INTERP (BEAKER) (test dysfunction rzsb=9654) [id number]-[id number] Talia Villarreal MD (BEAKER) (test fwrg=5069) (electronic signature) PLATELET COUNT AGG (BEAKER) 186 K/CU MM 150-450 (test rgjq=1695) Platelet Function Screen results may be falsely low with platelet counts<100, 000/cu mm.[id number] 15:02:00 Test Item Value Reference Range Comments ACTIVATED CLOTTING TIME [address] [facility] [address] [facility] (BEAKER) (test bjgi=238) [facility] [address] POCT-GLUCOSE [id number] 12:17:00 Test Item Value Reference Range Comments POC-GLUCOSE METER (BEAKER) 103 mg/dL 70-[address] [facility] [address] [place] [address] (test iqux=8834) [place] [id number] POCT-GLUCOSE [id number] 08:18:00 Test Item Value Reference Range Comments POC-GLUCOSE METER (BEAKER) 388 mg/dL 70-110 TESTED AT [address] (test javb=6013) [place] [address] HEPATIC FUNCTION [id number] 08:09:00 Test Item Value Reference Range Comments TOTAL PROTEIN (BEAKER) (test 6.2 gm/dL 6.0-8.3 Specimen slightly hemolyzed kpch=836) ALBUMIN (BEAKER) (test 3.4 g/dL 3.5-5.0 Specimen slightly hemolyzed vlmh=9797) BILIRUBIN TOTAL (BEAKER) (test 0.4 mg/dL 0.2-1.2 Specimen slightly hemolyzed sosu=807) BILIRUBIN DIRECT (BEAKER) (test 0.1 mg/dL 0.1-0.5 Specimen slightly hemolyzed gwlj=470) ALKALINE PHOSPHATASE (BEAKER) 59 U/L 40-150 (test kzbk=563) AST (SGOT) (BEAKER) (test 19 U/L 5-34 Specimen slightly hemolyzed nrkm=230) ALT (SGPT) (BEAKER) (test 10 U/L 6-55 Specimen slightly hemolyzed kcch=539) TROPONIN [id number] 06:39:00 Test Item Value Reference Range Comments TROPONIN I (BEAKER) (test thve=564) 0.26 ng/mL 0.00-0.03 Troponin I (TnI) levels must be interpreted in the context of the presenting symptoms and the clinical findings. Elevated TnI levels indicate myocardial damage, but are not specific for ischemic heart disease. Elevated TnI levels are seen in patients with other cardiac conditions (including myocarditis and congestive heart failure), and slight TnI elevations occur in patients with other conditions, including sepsis, renal failure, acidosis, acute neurological disease, and persistent tachyarrhythmia.POCT-GLUCOSE [id number] 06:36:00 Test Item Value Reference Range Comments POC-GLUCOSE METER (BEAKER) 415 mg/dL 70-110 TESTED AT [address] (test xwji=2046) [place] [address] BASIC METABOLIC [id number] 06:10:00 Test Item Value Reference Range Comments SODIUM (BEAKER) (test 135 meq/L 136-145 jyov=533) POTASSIUM (BEAKER) (test 4.9 meq/L 3.5-5.1 Specimen slightly dppx=366) hemolyzed CHLORIDE (BEAKER) (test 104 meq/L 98-107 xwzn=159) CO2 (BEAKER) (test 21 meq/L 22-29 phdc=523) BLOOD UREA NITROGEN 53 mg/dL 7-21 (BEAKER) (test lqch=457) CREATININE (BEAKER) (test 2.28 mg/dL 0.57-1.25 Specimen slightly gxyn=154) hemolyzed GLUCOSE RANDOM (BEAKER) 473 mg/dL 70-105 (test hekl=528) CALCIUM (BEAKER) (test 8.7 mg/dL 8.4-10.2 lrxm=196) EGFR (BEAKER) (test 21 mL/min/1.73 sq m ESTIMATED GFR IS NOT wjjb=0002) ACCURATE CREATININE CLEARANCE IN PREDICTING GLOMERULAR FILTRATION RATE. ESTIMATED GFR IS NOT APPLICABLE FOR DIALYSIS PATIENTS. [id number] 06:03:00 Test Item Value Reference Range Comments MAGNESIUM (BEAKER) (test 2.2 mg/dL 1.6-2.6 Specimen slightly hemolyzed oytj=131) THROMBIN [id number] 05:09:00 Test Item Value Reference Range Comments THROMBIN TIME (BEAKER) (test wcjj=527) 64.9 secs 13.8-20.0 Draw baseline aPTT prior to [id number] 05:08:00 Test Item Value Reference Range Comments PARTIAL THROMBOPLASTIN TIME (BEAKER) (test 43.1 seconds 22.5-36.0 orcs=670) Draw baseline aPTT prior to infusionPROTHROMBIN TIME/[id number] 05:07:00 Test Item Value Reference Range Comments PROTIME (BEAKER) (test lomk=452) 15.0 seconds 11.9-14.2 INR (BEAKER) (test krql=877) 1.2 <=5.9 Effective 07/18/2018: PT Reference Range ChangeNew: 11.9-14.2 Previous: 11.7- 14.7RECOMMENDED COUMADIN/WARFARIN INR THERAPY RANGESSTANDARD DOSE: 2.0-3.0 Includes: PROPHYLAXIS for venous thrombosis, systemic embolization; TREATMENT for venous thrombosis and/or pulmonary embolus.HIGH RISK: Target INR is2.5-3.5 for patients wiht mechanical heart valves.Draw baseline aPTT prior to infusionCBC W/PLT COUNT & AUTO [id number] 04:59:00 Test Item Value Reference Range Comments WHITE BLOOD CELL COUNT (BEAKER) (test mncz=680) 7.0 K/ L 3.5-10.5 RED BLOOD CELL COUNT (BEAKER) (test wsfa=642) 3.82 M/ L 3.93-5.22 HEMOGLOBIN (BEAKER) (test bmrd=703) 11.7 GM/DL 11.2-15.7 HEMATOCRIT (BEAKER) (test xphx=382) 35.9 % 34.1-44.9 MEAN CORPUSCULAR VOLUME (BEAKER) (test dpyz=800) 94.0 fL 79.4-94.8 MEAN CORPUSCULAR HEMOGLOBIN (BEAKER) (test 30.6 pg 25.6-32.2 nsfq=765) MEAN CORPUSCULAR HEMOGLOBIN CONC (BEAKER) (test 32.6 GM/DL 32.2-35.5 orit=862) RED CELL DISTRIBUTION WIDTH (BEAKER) (test 12.8 % 11.7-14.4 zrlk=816) PLATELET COUNT (BEAKER) (test lumb=372) 225 K/CU MM 150-450 MEAN PLATELET VOLUME (BEAKER) (test yllp=862) 10.5 fL 9.4-12.3 NUCLEATED RED BLOOD CELLS (BEAKER) (test 0 /100 WBC 0-0 rrno=807) NEUTROPHILS RELATIVE PERCENT (BEAKER) (test 87 % cgjp=739) LYMPHOCYTES RELATIVE PERCENT (BEAKER) (test 10 % ezrr=804) MONOCYTES RELATIVE PERCENT (BEAKER) (test 2 % hqvb=683) EOSINOPHILS RELATIVE PERCENT (BEAKER) (test 0 % ogfa=557) BASOPHILS RELATIVE PERCENT (BEAKER) (test 0 % cruh=877) NEUTROPHILS ABSOLUTE COUNT (BEAKER) (test 6.10 K/ L 1.56-6.13 sokk=544) LYMPHOCYTES ABSOLUTE COUNT (BEAKER) (test 0.72 K/ L 1.18-3.74 gxdo=173) MONOCYTES ABSOLUTE COUNT (BEAKER) (test 0.14 K/ L 0.24-0.36 xssj=733) EOSINOPHILS ABSOLUTE COUNT (BEAKER) (test 0.00 K/ L 0.04-0.36 ldii=589) BASOPHILS ABSOLUTE COUNT (BEAKER) (test 0.01 K/ L 0.01-0.08 shqw=918) IMMATURE GRANULOCYTES-RELATIVE PERCENT (BEAKER) 1 % 0-1 (test bllz=4382) RAD, CHEST, 1 VIEW, NON [id number] 04:33:00Reason for exam:->preopShould this be performed at the bedside?->YesFINAL REPORT RAD, CHEST, 1 VIEW, NON DEPT INDICATION: preop COMPARISON: Prior day's exam FINDINGS: Portable frontal view of the chest. IMPRESSION: Support Lines: Stable. Lungs and pleura: Unchanged airspace and pleural opacities. No pneumothorax.Heart and mediastinum: Stable contours. Additional findings: None. Signed: Desire Méndez Verified Date/Time: 08/01/2018 04:33:15 RAD , CHEST, 1 VIEW, NON [id number] 00:02:00Reason for exam:->Intraaortic balloon pump insertionShould this be performed at the bedside?->YesFINAL REPORT RAD, CHEST, 1 VIEW, NON DEPT INDICATION: Intraaortic balloon pump insertion COMPARISON: Prior day's exam FINDINGS: Portable frontal view of the chest. IMPRESSION:Support Lines: Interval placement of an intra-aortic balloon pump with the superior marker terminating at the level of the T5-6 disc space. Lungs and pleura: Unchanged airspace and pleural opacities. No pneumothorax.Heart and mediastinum: Stable contours. Additional findings: Unchanged deformity of the right humeral head. Postsurgical changes of the cervical spine. Signed: Desire Méndez Verified Date/Time: 08/01/2018 00:02:19 Electronically signed by: DESIRE MÉNDEZ MD on08/01/2018 12:02 AMTSH/FREE T4 IF [id number] 21:34:00 Test Item Value Reference Range Comments THYROID STIMULATING HORMONE (BEAKER) (test 0.99 uIU/mL 0.35-4.94 dqjf=339) TROPONIN [id number] 21:26:00 Test Item Value Reference Range Comments TROPONIN I (BEAKER) (test fupn=022) 0.28 ng/mL 0.00-0.03 Troponin I (TnI) levels must be interpreted in the context of the presenting symptoms and the clinical findings. Elevated TnI levels indicate myocardial damage, but are not specific for ischemic heart disease. Elevated TnI levels are seen in patients with other cardiac conditions (including myocarditis and congestive heart failure), and slight TnI elevations occur in patients with other conditions, including sepsis, renal failure, acidosis, acute neurological disease, and persistent tachyarrhythmia.B-TYPE NATRIURETIC FACTOR (BNP) 21:20:00 Test Item Value Reference Range Comments B-TYPE NATRIURETIC PEPTIDE (BEAKER) (test 633 pg/mL 0-100 rfde=038) RAD, CHEST, 1 VIEW, NON [id number] 21:20:00Reason for exam:->unstable anginaShould this be performed at the bedside?->YesFINAL REPORT Portable chest. HISTORY: Unstable angina. COMPARISON STUDY: Noneavailable. FINDINGS: The cardiac size is enlarged. There are bilateral increased interstitial markings with some atelectasis or fibrosis in the lung bases. No pleural effusion or pneumothorax is seen. Degenerative changes and osteopenia are seen. IMPRESSION: Cardiomegaly with increased interstitial markings. Signed: Jonathan Galeana MDReport Verified Date/Time: 07/31/2018 21:20 :52 Reading Location: [facility] B1 C013W Consult Reading Room BASI METABOLIC [id number] 21:18:00 Test Item Value Reference Range Comments SODIUM (BEAKER) (test 137 meq/L 136-145 ghvh=824) POTASSIUM (BEAKER) (test 4.6 meq/L 3.5-5.1 qbuy=703) CHLORIDE (BEAKER) (test 104 meq/L 98-107 oupb=998) CO2 (BEAKER) (test 25 meq/L 22- vfcz=530) BLOOD UREA NITROGEN 47 mg/dL 7-21 (BEAKER) (test rmyo=986) CREATININE (BEAKER) (test 2.18 mg/dL 0.57-1.25 kbav=310) GLUCOSE RANDOM (BEAKER) 223 mg/dL 70-105 (test djpb=932) CALCIUM (BEAKER) (test 9.1 mg/dL 8.4-10.2 eeoq=526) EGFR (BEAKER) (test 22 mL/min/1.73 sq m ESTIMATED GFR IS NOT chyj=6359) ACCURATE CREATININE CLEARANCE IN PREDICTING GLOMERULAR FILTRATION RATE. ESTIMATED GFR IS NOT APPLICABLE FOR DIALYSIS PATIENTS. HEPATIC FUNCTION [id number] 21:15:00 Test Item Value Reference Range Comments TOTAL PROTEIN (BEAKER) (test gohw=564) 6.8 gm/dL 6.0-8.3 ALBUMIN (BEAKER) (test ljkb=7860) 3.8 g/dL 3.5-5.0 BILIRUBIN TOTAL (BEAKER) (test tkvb=900) 0.6 mg/dL 0.2-1.2 BILIRUBIN DIRECT (BEAKER) (test muue=654) 0.3 mg/dL 0.1-0.5 ALKALINE PHOSPHATASE (BEAKER) (test rilp=055) 67 U/L 40-150 AST (SGOT) (BEAKER) (test wseb=430) 14 U/L 5-34 ALT (SGPT) (BEAKER) (test lnqv=333) 10 U/L 6-55 [id number] 20:57:00 Test Item Value Reference Range Comments PARTIAL THROMBOPLASTIN TIME (BEAKER) (test 27.7 seconds 22.5-36.0 ctrm=675) PROTHROMBIN TIME/[id number] 20:56:00 Test Item Value Reference Range Comments PROTIME (BEAKER) (test hihk=586) 13.1 seconds 11.9-14.2 INR (BEAKER) (test jjbb=159) 1.0 <=5.9 Effective 07/18/2018: PT Reference Range ChangeNew: 11.9-14.2 Previous: 11.7- 14.7RECOMMENDED COUMADIN/WARFARIN INR THERAPY RANGESSTANDARD DOSE: 2.0-3.0 Includes: PROPHYLAXIS for venous thrombosis, systemic embolization; TREATMENT for venous thrombosis and/or pulmonary embolus.HIGH RISK: Target INR is2.5-3.5 for patients wiht mechanical heart valves.CBC W/PLT COUNT & AUTO [id number] 20:50:00 Test Item Value Reference Range Comments WHITE BLOOD CELL COUNT (BEAKER) (test zogn=312) 8.4 K/ L 3.5-10.5 RED BLOOD CELL COUNT (BEAKER) (test nilr=510) 4.23 M/ L 3.93-5.22 HEMOGLOBIN (BEAKER) (test xxbl=722) 13.0 GM/DL 11.2-15.7 HEMATOCRIT (BEAKER) (test bcsr=777) 41.2 % 34.1-44.9 MEAN CORPUSCULAR VOLUME (BEAKER) (test etpt=283) 97.4 fL 79.4-94.8 MEAN CORPUSCULAR HEMOGLOBIN (BEAKER) (test 30.7 pg 25.6-32.2 lmad=224) MEAN CORPUSCULAR HEMOGLOBIN CONC (BEAKER) (test 31.6 GM/DL 32.2-35.5 chya=108) RED CELL DISTRIBUTION WIDTH (BEAKER) (test 12.8 % 11.7-14.4 hbdp=469) PLATELET COUNT (BEAKER) (test yrof=970) 230 K/CU MM 150-450 MEAN PLATELET VOLUME (BEAKER) (test iwxp=543) 9.9 fL 9.4-12.3 NUCLEATED RED BLOOD CELLS (BEAKER) (test 0 /100 WBC 0-0 fqll=650) NEUTROPHILS RELATIVE PERCENT (BEAKER) (test 87 % flhz=435) LYMPHOCYTES RELATIVE PERCENT (BEAKER) (test 12 % orzk=255) MONOCYTES RELATIVE PERCENT (BEAKER) (test 1 % epss=038) EOSINOPHILS RELATIVE PERCENT (BEAKER) (test 0 % anby=627) BASOPHILS RELATIVE PERCENT (BEAKER) (test 0 % xecn=222) NEUTROPHILS ABSOLUTE COUNT (BEAKER) (test 7.32 K/ L 1.56-6.13 hstb=649) LYMPHOCYTES ABSOLUTE COUNT (BEAKER) (test 0.98 K/ L 1.18-3.74 hbgp=249) MONOCYTES ABSOLUTE COUNT (BEAKER) (test 0.08 K/ L 0.24-0.36 fijr=921) EOSINOPHILS ABSOLUTE COUNT (BEAKER) (test 0.00 K/ L 0.04-0.36 afqb=402) BASOPHILS ABSOLUTE COUNT (BEAKER) (test 0.01 K/ L 0.01-0.08 fmad=541) IMMATURE GRANULOCYTES-RELATIVE PERCENT (BEAKER) 0 % 0-1 (test kwej=8475) [id number] 19:45:00 Test Item Value Reference Range Comments TROPONIN-I (test 0.18 ng/mL 0.00-0.05 RESULTS CALLED TO SOLITARIO SCHUMACHER code=TROPI) AT 1945 07/28/18.Oly Malloy L VALUE READ BACK BY NURSE AND VERIFIED BY TECH? Y<0.05 Normal0.06 - 0.39 Consistent with circulating Troponin with possible Myocardial injury.>0.40 Consistent with Myocardial injury extensive enough to conform with AMI as defined by WHO. COMPREHENSIVE METABOLIC [id number] 16:08:00 Test Item Value Reference Range Comments [...] 45-117 (test code=ALKP) - XR CHEST 1 [id number] 15:43:00 FAX: Rhett Jo Camps: ER St: REG Name: [facility]- Emergency Services : 1940 Age/S: 78/F [address] [facility] Unit #: [id number] Loc: [place], [place] [address] Phys: Rhett Sams MD Acct: [id number] Dis Date: Status: REG ER PHONE #: [phone] Exam Date: 07/28/2018 1527 FAX #: [phone] Reason: CP EXAMS: CPT CODE: [id number] XR CHEST 1 V [id number] Examination: Chest 1 view Location code: S17 Comparison: None Discussion: Clinical history is remarkable for chest tightness. Cardiac silhouette is slightly enlarged, atherosclerotic change present. There are coarsened interstitial changes present bilaterally, mild bilateral parenchymal basilar scarring noted. Impression: 1. Coarsened interstitial changes with likely bilateral basilar parenchymal scarring. Electronically Signed by TONIA BUNN M.D. on 09/2018 at 1543 Reported and signed by: YUAN BUNN M.D. CC: Rhett Sams MDTechnologist: HESHAM FONG RT,(R) ARRT Transcribed Date/Time/By: 07/28/2018 (5153) : [id number] Orig Print D/T: S: 07/28/2018 (6659) Automated exposure control, iterative reconstruction technique, and/ oradjustment of mA and/or kV according to patient's size was utilizedfor optimum radiation dose reduction. PAGE 1 Signed ReportTROPONIN I [id number] 15:37:00 Test Item Value Reference Range Comments TROPONIN I RAPID (test 0.03 NG/ML 0.00-0.08 0.00 - 0.08 Normal0.09 - code=TROPIRAP) 0.40 Indeterminate for AMI 0.41 and above Compatible with AMI CHEMISTRY 8 [id number] 15:36:00 Test Item Value Reference Range Comments [...] (test code=CREATBED) 2.6 MG/DL 0.6-1.0 CBC W/AUTO [id number] 15:34:00 Test Item Value Reference Range Comments [...]
--- OUTSIDE RECORDS SUMMARY | 2018-08-20 16:32 | XMS REPORT ---
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 Active Problem Atherosclerosis of [place] coronary I25.10 Active artery Problem Chronic kidney disease (CKD), stage N18.4 Active IV (severe) Problem H/O stroke without residual Z86.73 Active deficits Medications Medication Code Code Instructions Start End Status Dosage System Date Date Simvastatin [facility] 91369942817 40 MG Orally Active 1/2 tablet Once a day in the evening Tradjenta [facility] 77860648084 5 MG Orally Active 1 tablet Once a day Metoprolol [facility] 46467114629 100 MG Orally Active 1 tablet Succinate ER Twice a day Cranberry Extract [facility] 43753-02904 Active not defined Tresiba FlexTouch [facility] 72635725641 200 UNIT/ML Active 10 units Subcutaneous daily Norvasc [facility] 89767311158 10 MG Orally Active 1 tablet Once a day Clopidogrel [facility] 96226889817 75 MG Orally Active 1 tablet Bisulfate Once a day Furosemide [facility] 17325808892 40 MG Orally Active 1 tablet Once a day Lactobacillus [facility] 0 Active not defined Results Name Result Date Reference Range Unit Abnormality Flag X-RAY EXAM KNEE STANDING VIEW (30373) Summary Purpose eClinicalWorks Submission
--- OUTSIDE RECORDS SUMMARY | 2018-08-20 16:32 | XMS REPORT ---
[...] stent Z95.5 Active placement Assessment Atherosclerosis of [place] coronary I25.10 Active artery Assessment At risk for falling Z91.81 Active Problem Proteinuria, unspecified R80.9 Active Assessment Mixed hyperlipidemia E78.2 Active Problem H/O stroke without residual deficits Z86.73 Active Assessment Proteinuria, unspecified R80.9 Active Problem Chronic kidney disease (CKD), stage N18.4 Active IV (severe) Problem At risk for falling Z91.81 Active Problem Other osteoporosis M81.8 Active Problem [facility] current 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 Z79.4 Active Problem Type 2 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 Assessment [facility] current 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 Z79.4 Active Assessment Hypertensive heart disease without I11.9 Active heart failure Problem Cervical stenosis of spine M48.02 Active Assessment 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 classified I43 Active elsewhere Problem 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 classified I43 Active elsewhere Problem Atherosclerosis of [place] coronary I25.10 Active artery Problem Hypertensive heart [...] End Status Dosage System Date Date Metoprolol [facility] 20212431659 100 MG Orally Active 1 tablet Succinate ER Twice a day Tradjenta [facility] 39503336956 5 MG Orally Active 1 tablet Once a day Simvastatin [facility] 00412079740 40 MG Orally Active 1/2 tablet Once a day in the evening Furosemide [facility] 79830307104 40 MG Orally Active 1 tablet Once a day Clopidogrel [facility] 78226601655 75 MG Orally Active 1 tablet Bisulfate Once a day Tresiba FlexTouch [facility] 91815913797 200 UNIT/ML Active 10 units Subcutaneous daily Cranberry Extract [facility] 76857-50124 Active not defined Lactobacillus [facility] 0 Active not defined Norvasc [facility] 30241252313 10 MG Orally Active 1 tablet Once a day Results No Known Results Summary Purpose eClinicalWorks Submission
--- OUTSIDE RECORDS SUMMARY | 2018-08-20 16:32 | XMS REPORT ---
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
--- OUTSIDE RECORDS SUMMARY | 2018-08-20 16:33 | XMS REPORT ---
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
--- OUTSIDE RECORDS SUMMARY | 2018-08-20 16:33 | XMS REPORT ---
:1940 Author Organization eClinicalWorks Care Team Providers Name Role Phone Orlando John Provider Role Unavailable Allergies No Known Allergies Problems Problem Type Condition Code Onset Dates Condition Status Problem 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 Active classified elsewhere Problem Cervical stenosis of spine M48.02 Active Problem [facility] current 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 Z79.4 Active Problem [...] stent Z95.5 Active placement Problem Atherosclerosis of [place] coronary I25.10 Active artery Medications No Known Medications Results No Known Results Summary Purpose eClinicalWorks Submission
--- OUTSIDE RECORDS SUMMARY | 2018-08-20 16:33 | XMS REPORT ---
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 Problem [...] stent Z95.5 Active placement Problem Atherosclerosis of [place] coronary I25.10 Active artery Problem Chronic kidney disease (CKD), stage N18.4 Active IV (severe) Problem 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 Active classified elsewhere Medications Medication Code Code Instructions Start End Status Dosage System Date Date Lactobacillus [facility] 0 Active not defined Furosemide ND 05484067421 40 MG Orally Active 1 tablet Once a day Bactrim DS ND 62445374209 800-160 MG Feb 21Feb Active 1 tablet Orally Twice a 2019 2018 Simvastatin ND 73351188699 40 MG Orally Active 1/2 tablet [place] [address] Active not defined Extract Norvasc [facility] 60874502180 10 MG Orally Active 1 tablet Once a day Tresiba [facility] 17630063251 200 UNIT/ML Active INJECT 10 UNITS FlexTouch SUBCUTANEOUSLY DAILY Tradjenta [facility] 57026290328 5 MG Orally Active 1 tablet Once a day Clopidogrel [facility] 41352438505 75 MG Orally Active 1 tablet Bisulfate Once a day Metoprolol [facility] 98611362559 100 MG Orally Active 1 tablet Succinate ER Twice a day Results No Known Results Summary Purpose eClinicalWorks Submission
--- OUTSIDE RECORDS SUMMARY | 2018-08-20 16:33 | XMS REPORT ---
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 Active [...] stent Z95.5 Active placement Problem Atherosclerosis of [place] coronary I25.10 Active artery Medications Medication Code Code Instructions Start End Status Dosage System Date Date Metoprolol ND 24060408721 100 MG Orally Active 1 tablet Succinate ER Twice a day Simvastatin ND 72341952092 40 MG Orally Active 1/2 tablet in Once a day the evening Lactobacillus [facility] 0 Active not defined Furosemide ND 84978004179 40 MG Orally Active 1 tablet Once a day Norvasc [facility] 68808967587 10 MG Orally Active 1 tablet Once a day Tresiba [facility] 10651977085 200 UNIT/ML Active INJECT 10 UNITS FlexTouch SUBCUTANEOUSLY DAILY Tradjenta [facility] 82691251738 5 MG Orally Active 1 tablet Once a day Cranberry [facility] 92483-43693 Active not defined Extract Clopidogrel [facility] 64719840441 75 MG Orally Active 1 tablet Bisulfate Once a day Results No Known Results Summary Purpose eClinicalWorks Submission
--- OUTSIDE RECORDS SUMMARY | 2018-08-20 16:33 | XMS REPORT ---
:1940 Author Organization eClinicalWorks Care Team Providers Name Role Phone Orlando John Provider Role Unavailable Allergies No Known Allergies Problems Problem Type Condition Code Onset Dates Condition Status Problem alf current 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 Z79.4 Active Problem [...] stent Z95.5 Active placement Problem Atherosclerosis of [place] coronary I25.10 Active artery Problem Chronic kidney disease (CKD), stage N18.4 Active IV (severe) Problem 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 Active classified elsewhere Medications No Known Medications Results No Known Results Summary Purpose eClinicalWorks Submission
--- OUTSIDE RECORDS SUMMARY | 2018-08-20 16:33 | XMS REPORT ---
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
--- OUTSIDE RECORDS SUMMARY | 2018-08-20 16:33 | XMS REPORT ---
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 59828185263 100 MG Orally Active 1 tablet Succinate ER Twice a day Tradjenta [facility] 51440916111 5 MG Orally Active 1 tablet Once a day Simvastatin [facility] 07688631654 40 MG Orally Active 1/2 tablet in Once a day the evening Furosemide [facility] 09336693335 40 MG Orally Active 1 tablet Once a day Simvastatin [facility] 20900058713 40 MG Orally Active 1/2 tablet in Once a day the evening Clopidogrel [facility] 72814943083 75 MG Orally Active 1 tablet Bisulfate Once a day Cranberry [facility] 38688-72159 Active not defined Extract Lactobacillus [facility] 0 Active not defined Tradjenta [facility] 97741753109 5 MG Orally Active 1 tablet Once a day Tresiba [facility] 33612924923 200 UNIT/ML Active INJECT 10 UNITS FlexTouch SUBCUTANEOUSLY DAILY Tresiba [facility] 87019970005 200 UNIT/ML Active 10 units FlexTouch Subcutaneous daily Results No Known Results Summary Purpose eClinicalWorks Submission
--- OUTSIDE RECORDS SUMMARY | 2018-08-20 16:33 | XMS REPORT ---
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 62299364090 40 MG Orally Active 1 tablet Once a day Tradjenta [facility] 91674549140 5 MG Orally Active 1 tablet Once a day Simvastatin [place] 09531593939 40 MG Orally Active 1/2 tablet in Once a day the evening Metoprolol [facility] 22904427491 100 MG Orally Active 1 tablet Succinate ER Twice a day Norvasc [facility] 04858126454 10 MG Orally Active 1 tablet Once a day Cranberry [facility] [address]68-87565 Active not defined Extract Tresiba [facility] 85644330916 200 UNIT/ML Active INJECT 10 UNITS FlexTouch SUBCUTANEOUSLY DAILY Lactobacillus [facility] 0 Active not defined Clopidogrel [facility] 29865204074 75 MG Orally Active 1 tablet Bisulfate Once a day Results No Known Results Summary Purpose eClinicalWorks Submission
--- OUTSIDE RECORDS SUMMARY | 2018-08-20 16:33 | XMS REPORT ---
:1940 Author Organization eClinicalWorks Care Team Providers Name Role Phone Orlando John Provider Role Unavailable Allergies No Known Allergies Problems Problem Type Condition Code Onset Dates Condition Status Problem 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 Active classified elsewhere Problem Cervical stenosis of spine M48.02 Active Problem [facility] current 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 Z79.4 Active Problem [...] stent Z95.5 Active placement Problem Atherosclerosis of [place] coronary I25.10 Active artery Medications No Known Medications Results No Known Results Summary Purpose eClinicalWorks Submission
--- OUTSIDE RECORDS SUMMARY | 2018-08-20 16:34 | XMS REPORT ---
:1940 Author Organization eClinicalWorks Care Team Providers Name Role Phone Orlando John Provider Role Unavailable Allergies No Known Allergies Problems Problem Type Condition Code Onset Dates Condition Status Problem care home current 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 Z79.4 Active Problem [...] stent Z95.5 Active placement Problem Atherosclerosis of [place] coronary I25.10 Active artery Problem Chronic kidney disease (CKD), stage N18.4 Active IV (severe) Problem 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 Active classified elsewhere Medications No Known Medications Results No Known Results Summary Purpose eClinicalWorks Submission
--- OUTSIDE RECORDS SUMMARY | 2018-08-20 16:34 | XMS REPORT ---
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 Problem 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 Active classified elsewhere Assessment Chronic kidney disease, stage 4 N18.4 Active (severe) Problem group home current 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 Z79.4 Active [...] End Status Dosage System Date Date Tradjenta [facility] 15420234803 5 MG Orally Active 1 tablet Once a day Furosemide [facility] 56217841975 40 MG Orally Active 1 tablet Once a day Norvasc [facility] 81996858320 10 MG Orally Active 1 tablet Once a day Metoprolol [facility] 70889405726 100 MG Orally Active 1 tablet Succinate ER Twice a day Tresiba [facility] 51515502091 200 UNIT/ML Active 10 units FlexTouch Subcutaneous daily Tresiba [facility] 97045925550 200 UNIT/ML Active INJECT 10 UNITS FlexTouch SUBCUTANEOUSLY DAILY Simvastatin [facility] 50822553906 40 MG Orally Active 1/2 tablet in Once a day the evening Simvastatin [facility] 77029652332 40 MG Orally Active 1/2 tablet in Once a day the evening Tradjenta [facility] 11111295542 5 MG Orally Active 1 tablet Once a day Clopidogrel [facility] 31034649117 75 MG Orally Active 1 tablet Bisulfate Once a day Lactobacillus [facility] 0 Active not defined Cranberry [facility] 38840-16640 Active not defined Extract Results No Known Results Summary Purpose eClinicalWorks Submission
--- OUTSIDE RECORDS SUMMARY | 2018-08-20 16:34 | XMS REPORT ---
:1940 Author Organization eClinicalWorks Care Team Providers Name Role Phone Orlando John Provider Role Unavailable Allergies No Known Allergies Problems Problem Type Condition Code Onset Dates Condition Status Problem [facility] current 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 Z79.4 Active Problem [...] stent Z95.5 Active placement Problem Atherosclerosis of [place] coronary I25.10 Active artery Problem Chronic kidney disease (CKD), stage N18.4 Active IV (severe) Problem 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 Active classified elsewhere Medications No Known Medications Results No Known Results Summary Purpose eClinicalWorks Submission
[2018-08-20] MEDS ORDERED: OXYMETAZOLINE HCL 0.05% 15ML NAS PRN (16:59)
[2018-08-20] MEDS ORDERED: NITROGLYCERIN 0.4 MG/TAB SL PRN (16:59)
[2018-08-20] MEDS ORDERED: LORAZEPAM 0.5 MG TABLET PO PRN (16:59)
[2018-08-20] MEDS ORDERED: GLUCAGON 1 MG/VIAL IM PRN (17:19)
[2018-08-20] MEDS ORDERED: D50W 25 GM/50 ML SYRINGE IV PRN (17:19)
[2018-08-20] MEDS: METOPROLOL TAR 25 MG TAB PO SCH (18:26)
[2018-08-20] MEDS: HEPARIN 5000 UNIT/ML 1 ML VIAL SQ SCH (18:57)
[2018-08-20] MEDS ORDERED: OPTHALMIC EACH EYE SCH (20:00)
[2018-08-20] MEDS ORDERED: RESTASIS 0.05% EACH EYE SCH (20:00)
[2018-08-20] MEDS ORDERED: BUMETANIDE 1 MG TABLET PO SCH (20:00)
[2018-08-20] MEDS ORDERED: Meropenem 500 MG in NA CHLORIDE 0.9% 100 ML IV SCH (20:00)
[2018-08-20] MEDS ORDERED: IPRATROPIUM BROM 0.5MG/2.5ML NEB SCH (20:00)
[2018-08-20] MEDS: MINOCYCLINE HCL 50 MG CAP PO SCH (20:54)
[2018-08-20] MEDS: ATORVASTATIN 80 MG TAB PO SCH (20:54)
[2018-08-20] MEDS: DOCUSATE NA/SENNA CONC 1 TAB PO SCH (20:55)
[2018-08-20] MEDS: INSULIN -REGULAR HUMAN 50 UNIT/0.5 ML ML SQ SCH (20:55)
--- NOTE | 2018-08-21 01:36 | FAST ---
SHIFT START DATE/TIME: 08/20/2018 19:00 (CDT) SHIFT END DATE/TIME: 08/21/2018 07:00 (CDT) NAME HENRIQUE ARECHIGA DATE OF : 1940 DATE OF ADMISSION: 08/20/2018 16:21 (CDT) PHONE: AGE: 78 N# [id number] GENDER: Female ENCOUNTER PHYSICIAN: Dr. Rober Keller M.D. ADMISSION DIAGNOSIS: - Cardiac 09 - Cardiac Disorders () NSTEMI. EATING: Activity did not occur on this shift EATING - SCORE: 0-UNK GROOMING: Oral care Wash, rinse, and dry hands GROOMING - STEP 1: Does the patient require the assistance of a person or device, or need extra time when grooming? Yes. GROOMING - STEP 2: Does the patient require the assistance of a helper? Yes. GROOMING - STEP 3: How much assistance does the patient require from the helper? Only prior equipment preparation/set up from the helper GROOMING - SCORE: 5-SUP BATHING: Activity did not occur on this shift BATHING - SCORE: 0-UNK DRESSING - UPPER BODY: Patient is not dressing in public clothing ARTICLES SCORE Total number of steps: 0 DRESSING - UPPER BODY - SCORE: 0-UNK DRESSING - LOWER BODY: Patient is not dressing in public clothing ARTICLES SCORE Total number of steps: 0 DRESSING - LOWER BODY - SCORE: 0-UNK TOILETING: TOILETING - STEP 1: Does the patient require the assistance of a person or device, or need extra time with toileting? Yes . TOILETING - STEP 2: Does the patient require the assistance of a helper? Yes. TOILETING - STEP 3: How much assistance does the patient require from the helper? Hands-on assistance from the helper TOILETING - STEP 4: Of the 3 tasks: 1) Adjusting clothing prior to use, 2) Cleansing of perineal area, 3) Adjusting clot jenniffer after use; How many tasks does the patient perform WITHOUT assistance of the helper? Three tasks with steadying assistance from the helper TOILETING - SCORE: 4-MIN BLADDER MANAGEMENT: BLADDER MANAGEMENT - STEP 1: Does the patient control the bladder completely and intentionally without equipment or devices or med ications, and is always continent? No. BLADDER MANAGEMENT - STEP 2: Does the patient require the assistance of a helper? Yes. BLADDER MANAGEMENT - STEP 3: How much assistance does the patient require from the helper? Only supervision, stand-by, cuing, or c oaxing BLADDER MANAGEMENT - SCORE: 5-SUP BOWEL MANAGEMENT: BOWEL MANAGEMENT - STEP 1: Does the patient control bowels completely and intentionally without equipment devices or medications AND is always continent? No. BOWEL MANAGEMENT - STEP 2: Does the patient require the assistance of a helper? No, patient requires medication for control such as stool softeners, suppositories, laxatives, enemas, or OTC medications BOWEL MANAGEMENT - SCORE: 6-FAHAD TRANSFERS: BED, CHAIR, WHEELCHAIR: TRANSFERS: BED, CHAIR, WHEELCHAIR - STEP 1: Does the patient require assistance of a person or device, or need extra time with bed, chair, or whe elchair transfers? Yes. TRANSFERS: BED, CHAIR, WHEELCHAIR - STEP 2: Does the patient require the assistance of a helper? Yes. TRANSFERS: BED, CHAIR, WHEELCHAIR - STEP 3: How much assistance does the patient require from the helper? Steadying/guiding assistance TRANSFERS: BED, CHAIR, WHEELCHAIR - SCORE: 4-MIN TRANSFERS: TOILET: TRANSFERS: TOILET - STEP 1: Does the patient require the assistance of a person or device, or need extra time with toilet transfe rs? Yes. TRANSFERS: TOILET - STEP 2: Does the patient require the assistance of a helper? Yes. TRANSFERS: TOILET - STEP 3: How much assistance does the patient require from the helper? Only supervision, cuing, coaxing, OR he lp to set out transfer equipment or to lock brakes and/or lift foot rests TRANSFERS: TOILET - SCORE: 5-SUP TRANSFERS: SHOWER: Activity did not occur on this shift TRANSFERS: SHOWER - SCORE: 0-UNK TRANSFERS: TUB: Activity did not occur on this shift TRANSFERS: TUB - SCORE: 0-UNK LOCOMOTION: WALK: Activity did not occur on this shift LOCOMOTION: WALK - SCORE: 0-UNK LOCOMOTION: WHEELCHAIR: Activity did not occur on this shift LOCOMOTION: WHEELCHAIR - SCORE: 0-UNK COMPREHENSION: COMPREHENSION: TYPE: Both COMPREHENSION - STEP 1: Does the patient require help from a person or device, or need extra time to understand complex and a bstract ideas (such as current events, finances, discharge planning, medical issues, relationships, e tc)? No. COMPREHENSION - STEP 2: Does the patient need extra time, require an assistive device (such as glasses for visual comprehensi on or a hearing aid for auditory comprehension) or does s/he have mild difficulty understanding compl ex and abstract information? Yes. COMPREHENSION - SCORE: 6-FAHAD EXPRESSION EXPRESSION: TYPE: Both EXPRESSION - STEP 1: Does the patient require help from a person or device, or need extra time expressing complex and abst ract ideas (such as current events, finances, discharge planning, medical issues, relationships, etc) ? No. EXPRESSION - STEP 2: Does the patient need extra time, require an assistive device (such as augmentive communication syste m or a communication board), OR does s/he have mild difficulty expressing complex and abstract ideas (including mild dysarthria or mild word-find problems)? Yes. EXPRESSION - SCORE: 6-FAHAD SOCIAL INTERACTION: SOCIAL INTERACTION - STEP 1: Does the patient require a helper to interact with others in social and therapeutic situations? No. SOCIAL INTERACTION - STEP 2: Does the patient need extra time in social situations, OR does s/he interact with staff, other patien ts, and family members ONLY in structured environments, OR does s/he require medication for social in teraction? Yes, patient needs extra time SOCIAL INTERACTION - SCORE: 6-FAHAD PROBLEM SOLVING: PROBLEM SOLVING - STEP 1: Does the patient need help from a person or device, or need extra time to solve complex problems such as managing a checking account or confronting interpersonal problems? Yes. PROBLEM SOLVING - STEP 2: Does the patient solve basic routine problems half or more of the time? Yes. PROBLEM SOLVING - STEP 3: How often does the patient need help to solve basic routine problems? 10%-24% of the time PROBLEM SOLVING - SCORE: 4-MIN MEMORY: MEMORY - STEP 1: Does the patient need help from a person or device, or need extra time to remember frequently encount ered people, daily routines, and executing requests? No. MEMORY - STEP 2: Does the patient have slight difficulty recognizing frequently encountered people, daily routines, or executing requests without the need for repetition or using self-initiated or environmental cues to remember? Yes. MEMORY - SCORE: 6-FAHAD SIGNATURE PANEL: The following modified sections: Eating - Score, Grooming - Score, Dressing - Upper Body - Score, Ishmael ssing - Lower Body - Score, Toileting - Score, Bladder Management - Score, Bowel Management - Score, Transfers: Bed, Chair, Wheelchair - Score, Transfers: Toilet - Score, Transfers: Shower - Score, Booker sfers: Tub - Score, Locomotion: Walk - Score, Locomotion: Wheelchair - Score, Comprehension - Score, Expression - Score, Social Interaction - Score, Problem Solving - Score, Memory - Score were [electro nically] signed by Naomy Cormier CNA on MonAug 21 2018 01:35:04 GMT-0500 (Central Daylight Time)
[2018-08-21] MEDS: ACETAMINOPHEN 500 MG TAB PO PRN (04:09)
[2018-08-21] MEDS: METOPROLOL TAR 25 MG TAB PO SCH ×2 (05:22→17:11)
[2018-08-21 06:02] LABS: Absolute Lymphocytes (CBC) 0.8 K/uL (0.7-4.9); Basophils % 0.9 % (0-1.3); Eosinophils % 2.9 % (0-4.4); Hematocrit 28.5 % (36.0-45.0); Lymphocytes % 14.5 % (15.3-44.8); MPV 8.3 fL (7.6-11.3); Monocytes % 14.2 % (3.3-12.3); RBC Red Blood Cell Count 2.91 M/uL (3.86-4.86)
[2018-08-21 06:16] LABS: Albumin 2.7 g/dL (3.4-5.0); Potassium 4.1 mmol/L (3.5-5.1); Prealbumin 13.1 mg/dL (20-40)
[2018-08-21] MEDS: INSULIN -REGULAR HUMAN 50 UNIT/0.5 ML ML SQ SCH ×4 (07:30→20:44)
[2018-08-21] MEDS: HEPARIN 5000 UNIT/ML 1 ML VIAL SQ SCH ×2 (07:30→18:28)
[2018-08-21] MEDS ORDERED: Meropenem 500 MG VIAL IV SCH (08:00)
[2018-08-21] MEDS ORDERED: CYANOCOBALAMIN 1000MCG/ML INJ IM SCH (08:00)
[2018-08-21] MEDS: DOCUSATE NA/SENNA CONC 1 TAB PO SCH ×2 (08:00→20:01)
[2018-08-21] MEDS: THIAMINE HCL 100 MG TABLET PO SCH (08:43)
[2018-08-21] MEDS: MINOCYCLINE HCL 50 MG CAP PO SCH ×2 (08:43→19:54)
[2018-08-21] MEDS: FOLIC ACID 1 MG TABLET PO SCH (08:43)
[2018-08-21] MEDS: ASPIRIN 81 MG CHEWABLE TABLET PO SCH (08:43)
[2018-08-21] MEDS: CLOPIDOGREL 75 MG TABLET PO SCH (08:44)
[2018-08-21] MEDS: BUMETANIDE 1 MG TABLET PO SCH ×2 (08:44→17:04)
[2018-08-21] MEDS: AMIODARONE HCL 200 MG TAB PO SCH (08:45)
[2018-08-21] MEDS: Meropenem 500 MG in NA CHLORIDE 0.9% 100 ML IV SCH (09:05)
[2018-08-21] MEDS: PANTOPRAZOLE 40MG TABLET PO SCH (09:05)
[2018-08-21] MEDS ORDERED: IPRATROPIUM BROM 0.5MG/2.5ML NEB PRN (09:47)
[2018-08-21] MEDS: CYANOCOBALAMIN 1,000 MCG TAB PO SCH ×2 (10:00→12:45)
--- NOTE | 2018-08-21 16:14 | FAST ---
SHIFT START DATE/TIME: 08/21/2018 07:00 (CDT) SHIFT END DATE/TIME: 08/21/2018 19:00 (CDT) NAME HENRIQUE ARECHIGA DATE OF : 1940 DATE OF ADMISSION: 08/20/2018 16:21 (CDT) PHONE: AGE: 78 N# [id number] GENDER: Female ENCOUNTER PHYSICIAN: Dr. Rober Keller M.D. ADMISSION DIAGNOSIS: - Cardiac 09 - Cardiac Disorders () NSTEMI. EATING: EATING - STEP 1: Does the patient require the assistance of a person or device, or need extra time when eating? Yes. EATING - STEP 2: Does the patient require the assistance of a helper? No, patient only requires an assistive device, O R s/he takes more than reasonable time to eat, OR there is a safety concern, OR s/he requires modifie d food consistency EATING - SCORE: 6-FAHAD GROOMING: Activity did not occur on this shift GROOMING - SCORE: 0-UNK BATHING: Activity did not occur on this shift BATHING - SCORE: 0-UNK DRESSING - UPPER BODY: Activity did not occur on this shift ARTICLES SCORE Total number of steps: 0 DRESSING - UPPER BODY - SCORE: 0-UNK DRESSING - LOWER BODY: Activity did not occur on this shift ARTICLES SCORE Total number of steps: 0 DRESSING - LOWER BODY - SCORE: 0-UNK TOILETING: TOILETING - STEP 1: Does the patient require the assistance of a person or device, or need extra time with toileting? Yes . TOILETING - STEP 2: Does the patient require the assistance of a helper? Yes. TOILETING - STEP 3: How much assistance does the patient require from the helper? Only supervision TOILETING - SCORE: 5-SUP BLADDER MANAGEMENT: BLADDER MANAGEMENT - STEP 1: Does the patient control the bladder completely and intentionally without equipment or devices or med ications, and is always continent? Yes. BLADDER MANAGEMENT - SCORE: 7-IND BLADDER MANAGEMENT - FREQUENCY OF ACCIDENTS: BLADDER MANAGEMENT(FA) - STEP 1: How many accidents has the patient had during the current shift? 0 BOWEL MANAGEMENT: Activity did not occur on this shift BOWEL MANAGEMENT - SCORE: 7-IND BOWEL MANAGEMENT - FREQUENCY OF ACCIDENTS: BOWEL MANAGEMENT(FA) - STEP 1: How many accidents has the patient had during the current shift? 0 TRANSFERS: BED, CHAIR, WHEELCHAIR: TRANSFERS: BED, CHAIR, WHEELCHAIR - STEP 1: Does the patient require assistance of a person or device, or need extra time with bed, chair, or whe elchair transfers? Yes. TRANSFERS: BED, CHAIR, WHEELCHAIR - STEP 2: Does the patient require the assistance of a helper? No. Patient only requires an assistive device fo r bed, chair, wheelchair transfers such as a sliding board, grab bar, or brace, OR s/he takes more th an reasonable time, OR there is a safety concern when s/he performs the transfers TRANSFERS: BED, CHAIR, WHEELCHAIR - SCORE: 6-FAHAD TRANSFERS: TOILET: TRANSFERS: TOILET - STEP 1: Does the patient require the assistance of a person or device, or need extra time with toilet transfe rs? Yes. TRANSFERS: TOILET - STEP 2: Does the patient require the assistance of a helper? No. Patient only requires an assistive device hernandez ch as a grab bar or special seat, OR s/he takes more than reasonable time to perform toilet transfers , OR there is a safety concern when s/he performs toilet transfers. TRANSFERS: TOILET - SCORE: 6-FAHAD TRANSFERS: SHOWER: Activity did not occur on this shift TRANSFERS: SHOWER - SCORE: 0-UNK TRANSFERS: TUB: Activity did not occur on this shift TRANSFERS: TUB - SCORE: 0-UNK LOCOMOTION: WALK: Activity did not occur on this shift LOCOMOTION: WALK - SCORE: 0-UNK LOCOMOTION: WHEELCHAIR: Activity did not occur on this shift LOCOMOTION: WHEELCHAIR - SCORE: 0-UNK COMPREHENSION: COMPREHENSION: TYPE: Both COMPREHENSION - STEP 1: Does the patient require help from a person or device, or need extra time to understand complex and a bstract ideas (such as current events, finances, discharge planning, medical issues, relationships, e tc)? No. COMPREHENSION - STEP 2: Does the patient need extra time, require an assistive device (such as glasses for visual comprehensi on or a hearing aid for auditory comprehension) or does s/he have mild difficulty understanding compl ex and abstract information? Yes. COMPREHENSION - SCORE: 6-FAHAD EXPRESSION EXPRESSION: TYPE: Both EXPRESSION - STEP 1: Does the patient require help from a person or device, or need extra time expressing complex and abst ract ideas (such as current events, finances, discharge planning, medical issues, relationships, etc) ? Yes. EXPRESSION - STEP 2: Does the patient require help to express basic necessities or ideas (such as hunger, thirst, sleep, s afety, daily schedule, room location, or discomfort) half or more of the time? No. EXPRESSION - STEP 3: How often does the patient need help to express directions and conversation about basic needs? Less t sanches 10% of the time EXPRESSION - SCORE: 5-SUP SOCIAL INTERACTION: SOCIAL INTERACTION - STEP 1: Does the patient require a helper to interact with others in social and therapeutic situations? No. SOCIAL INTERACTION - STEP 2: Does the patient need extra time in social situations, OR does s/he interact with staff, other patien ts, and family members ONLY in structured environments, OR does s/he require medication for social in teraction? Yes, patient needs extra time SOCIAL INTERACTION - SCORE: 6-FAHAD PROBLEM SOLVING: PROBLEM SOLVING - STEP 1: Does the patient need help from a person or device, or need extra time to solve complex problems such as managing a checking account or confronting interpersonal problems? Yes. PROBLEM SOLVING - STEP 2: Does the patient solve basic routine problems half or more of the time? Yes. PROBLEM SOLVING - STEP 3: How often does the patient need help to solve basic routine problems? Less than 10% of the time PROBLEM SOLVING - SCORE: 5-SUP MEMORY: MEMORY - STEP 1: Does the patient need help from a person or device, or need extra time to remember frequently encount ered people, daily routines, and executing requests? Yes. MEMORY - STEP 2: How often does the patient need help to remember frequently encountered people, daily routines, and e xecuting requests? Less than 10% of the time MEMORY - SCORE: 5-SUP SIGNATURE PANEL: The following modified sections: Eating - Score, Grooming - Score, Bathing - Score, Dressing - Upper Body - Score, Dressing - Lower Body - Score, Toileting - Score, Bladder Management - Score, Bowel Man agement - Score, Transfers: Bed, Chair, Wheelchair - Score, Transfers: Toilet - Score, Transfers: Dorothea wer - Score, Transfers: Tub - Score, Locomotion: Walk - Score, Locomotion: Wheelchair - Score, Compre hension - Score, Expression - Score, Social Interaction - Score, Problem Solving - Score, Memory - Sc ore were [electronically] signed by Krystal Maya C.N.A. on MonAug 21 2018 16:13:18 T-0500 (Centra l Daylight Time)
--- NOTE | 2018-08-21 17:01 | FAST ---
ENCOUNTER DATE AND TIME: 08/21/2018 08:00 (CDT) NAME HENRIQUE ARCEHIGA DATE OF : 1940 DATE OF ADMISSION: 08/20/2018 16:21 (CDT) PHONE: AGE: 78 SSN# [id number] GENDER: Female ENCOUNTER PHYSICIAN: Dr. Rober Keller M.D. ADMISSION DIAGNOSIS: - Cardiac 09 - Cardiac Disorders () NSTEMI. EATING: Activity did not occur on this shift EATING - SCORE: 0-UNK GROOMING: Activity did not occur on this shift GROOMING - SCORE: 0-UNK BATHING: Activity did not occur on this shift BATHING - SCORE: 0-UNK DRESSING - UPPER BODY: Activity did not occur on this shift Patient is not dressing in public clothing ARTICLES SCORE Total number of steps: 0 DRESSING - UPPER BODY - SCORE: 0-UNK DRESSING - LOWER BODY: Activity did not occur on this shift Patient is not dressing in public clothing ARTICLES SCORE Total number of steps: 0 DRESSING - LOWER BODY - SCORE: 0-UNK TOILETING: Activity did not occur on this shift TOILETING - SCORE: 0-UNK BLADDER MANAGEMENT: Activity did not occur on this shift BLADDER MANAGEMENT - SCORE: 7-IND BOWEL MANAGEMENT: Activity did not occur on this shift BOWEL MANAGEMENT - SCORE: 7-IND TRANSFERS: BED, CHAIR, WHEELCHAIR: TRANSFERS: BED, CHAIR, WHEELCHAIR - STEP 1: Does the patient require assistance of a person or device, or need extra time with bed, chair, or whe elchair transfers? Yes. TRANSFERS: BED, CHAIR, WHEELCHAIR - STEP 2: Does the patient require the assistance of a helper? Yes. TRANSFERS: BED, CHAIR, WHEELCHAIR - STEP 3: How much assistance does the patient require from the helper? Steadying/guiding assistance TRANSFERS: BED, CHAIR, WHEELCHAIR - SCORE: 4-MIN TRANSFERS: TOILET: Activity did not occur on this shift TRANSFERS: TOILET - SCORE: 0-UNK TRANSFERS: SHOWER: Activity did not occur on this shift TRANSFERS: SHOWER - SCORE: 0-UNK TRANSFERS: TUB: Activity did not occur on this shift TRANSFERS: TUB - SCORE: 0-UNK LOCOMOTION: WALK: LOCOMOTION: WALK - STEP 1: Does the patient need help from a person or device, or need extra time to walk 150 feet? Yes. LOCOMOTION: WALK - STEP 2: How much assistance does the patient require to walk a minimum of 150 feet? Patient walks less than 1 50 feet - but more than 50 feet - with the assistance of only one helper LOCOMOTION: WALK - SCORE: 2-MAX LOCOMOTION: WHEELCHAIR: LOCOMOTION: WHEELCHAIR - STEP 1: Does the patient need help to go 150 feet in a wheelchair? Yes. LOCOMOTION: WHEELCHAIR - STEP 2: How much assistance does the patient need from the helper? Only supervision, cuing, or coaxing LOCOMOTION: WHEELCHAIR - SCORE: 5-SUP LOCOMOTION: STAIRS: Activity did not occur on this shift LOCOMOTION: STAIRS - SCORE: 0-UNK COMPREHENSION: COMPREHENSION - SCORE: 0-UNK EXPRESSION EXPRESSION - SCORE: 0-UNK SOCIAL INTERACTION: SOCIAL INTERACTION - SCORE: 0-UNK PROBLEM SOLVING: PROBLEM SOLVING - SCORE: 0-UNK MEMORY: MEMORY - SCORE: 0-UNK SIGNATURE PANEL: The following modified sections: Transfers: Bed, Chair, Wheelchair - Score, Transfers: Toilet - Score , Locomotion: Walk - Score, Locomotion: Wheelchair - Score, Locomotion: Stairs - Score were [electron eric] signed by Francois Cota PT on MonAug 21 2018 17:00:31 GMT-0500 (Central Daylight Time)
--- NOTE | 2018-08-21 19:01 | R.HP ---
FACILITY: [facility] ENCOUNTER DATE AND TIME: 08/21/2018 18:56 (CDT) MR#: [id number] NAME HENRIQUE GONZALEZ ADDRESS: [address] [place] [address] CITY: [place]IP [id number] PHONE: DATE OF : 1940 AGE: 78 SSN# [id number] GENDER: Female DEXTERITY Right-handed MARITAL STATUS RACE White PRE-HOSPITAL LIVING SETTING 01 - Home (private home/apt. board/care, assisted living, fci, transitional living) PRE-HOSPITAL LIVING WITH Family/Relatives ENCOUNTER PHYSICIAN: Dr. Rober Keller M.D. REFERRING DOCTOR: Deo Sung DATE OF ADMISSION: 08/20/2018 16:21 (CDT) REFERRING FACILITY [facility] HOME TYPE AND DETAILS: Type of home: single family house # of steps to enter the residence: 0 # of steps within the residence: 0 # of levels in the residence: 1 ADMISSION DIAGNOSIS: NSTEMI ONSET DATE: 07/31/2018 PRIMARY DIAGNOSIS-RELATED SURGERIES: IABP insertion and removal impella pci SECONDARY/COMORBID DIAGNOSES (TIERED): - Non-Tiered unstable angina CKD Stage 4 IDDM - N/A DIABETIC NEUROPATHY mild thrombocytopenia HISTORY OF PRESENT ILLNESS (HPI): Pt. is a 78 yo Right-handed white female. On 07/31/2018 she was admitted to [facility] with diagnosis NSTEMI. Her impairment category is Cardiac 09 - Cardiac Disorders (09). Pre-morbidly, Pt. was independent/mod-I in Self-Care, Sphincter Control, Transfers Control, Communica tion, Social Cognition, and Locomotion; and she had good Sphincter Control. Currently, she has deficits of Transfers Control, Communication, Social Cognition, Endurance, Balance , Safety Awareness, Self-Care, and Locomotion. Pt. is now referred to [facility] for acute in-patient rehabilitation in order to maximize patient's functional independence in activities of daily living, strength, ROM, and mobi lity. Patient has realistic goal of being discharged at assistance level 6-Tracie to reside at Home with Fam gioavnna/Relatives. Henrique Gonzalez is a 78 old female that lives with her in a single marisel home with two steps with 2 rails that separate the kitchen from the living room. On 07/31/2018, she had a chest pain and elevated troponin and was admitted to [facility] and treated. She is now medically stable but in need of 24-hour nursing, doctor supervision and oversite participate in 3hours of therapy a day/15 hours per week and receive care with an intensive interdisciplinary approach. MEDICATION ALLERGIES: Heparin analogues iodine and iodide containing products morphine vicodin codeine levaquin phenergan reglan benadryl ENVIRONMENTAL ALLERGIES: - Substance Allergies None Known - Other Allergies None Known PAST MEDICAL HISTORY: CKD Stage 4 DIABETIC NEUROPATHY IDDM mild thrombocytopenia unstable angina FAMILY HISTORY: Family history is not contributory. SOCIAL HISTORY: - Home Living Family/Relatives REVIEW OF SYSTEMS: - Gen No Chills Fatigue No Fever - Eyes No Double Vision No itchiness - ENMT No Difficulty Swallowing - CVS Chest Discomfort Fatigue No Weight Gain - Resp No Cough No Shortness of Breath - GI Continent No Abdominal Pain No Constipation No Diarrhea - Continent No Kidney Pain No Painful Urination - MSK Joint Pain Muscle Cramps Stiffness - Skin No Itching No Rash No Suspicious Lesions - Neuro Coordination Difficulty No Difficulty with Concentration No Memory Loss No Seizures Weakness - Psych No Anxiety No Depression No HIV Exposure No Persistent Infections No Seasonal Allergies - Endo No Cold/Heat Intolerance No Excessive Hunger No Excessive Thirst No Excessive Urination PHYSICAL EXAM - Gen Alert and awake Lying in bed No apparent distress Oriented to: person, time, and place - Skin No skin breakdown. No abnormalities - Eyes No abnormalities - ENMT No abnormalities - Neck No abnormalities - CVS RRR - Chest No abnormalities - Abd Soft - GI + bowel sounds Deferred - No abnormalities - Ext No significant edema. - MSK 4/5 weakness in both lower extremities. - Neuro No focal deficits - Psych No abnormalities VITAL SIGNS Temperature: 97.4 F SBP/DBP: 123/52 Pulse: 86 Resp: 18 NURSING: - Shower allowing shower ACTIVITIES OOB only with supervision FUNCTIONAL STATUS: - Self-Care A. Eating Ind Ind B. Grooming Ind sup C. Bathing Ind Aj D. Dressing - Upper Ind sup E. Dressing - Lower Ind modA F. Toileting Ind modA - Sphincter Control G: Bladder control Ind Ind H: Bowel control Ind Ind - Transfers Control I. Bed/Chair/Wheelchair Ind CGA J. Toilet Ind CGA K. Tub/Shower Ind CGA - Locomotion L. Walk/Wheelchair (B) Ind maxA M. Stairs Ind ADNO - Communication N. Comprehension (B) Ind sup O. Expression (B) Ind sup - Social Cognition P. Social Interaction Ind sup Q. Problem Solving Ind sup R. Memory Ind sup - Endurance Poor - Balance Fair - Safety Awareness Fair CURRENT FUNC. DEFICITS: Transfers Control, Communication, Social Cognition, Endurance, Balance, Safety Awareness, Self-Care, and Locomotion MEDICATIONS: - Other See attached MAR (Medication Administration Record) [id number].pdf ASSESSMENT: Pt. is a 78 yo Right-handed white female.On 07/31/2018 she was admitted to [facility] with diagnosis NSTEMI.Her impairment category is Cardiac 09 - Cardiac Disorders ().Pre-mor bidly, Pt. was independent/mod-I in Self-Care, Sphincter Control, Transfers Control, Communication, S ocial Cognition, and Locomotion; and she had good Sphincter Control.Currently, she has deficits of Tr ansfers Control, Communication, Social Cognition, Endurance, Balance, Safety Awareness, Self-Care, an d Locomotion.Pt. is now referred to [facility] for acute in-patient rehabilita tion in order to maximize patient's functional independence in activities of daily living, strength, ROM, and mobility.- Rehab Goal Patient has realistic goal of being discharged at assistance level 6-Tracie to reside at Home with Fam giovanna/Relatives. Henrique Gonzalez is a 78 old female that lives with her in a single marisel home with two steps with 2 rails that separate the kitchen from the living room. On 07/31/2018, she had a chest pain and elevated troponin and was admitted to [facility] and treated. She is now medically stable but in need of 24-hour nursing, doctor supervision and oversite participate in 3hours of therapy a day/15 hours per week and receive care with an intensive interdisciplinary approach.REHAB PLAN: - Physical Therapy Gait dysfunction - to improve, our physical therapists will perform initial evaluation of pt's status upon admission and devise an individualized program for Gait Training, and Wheel Chair mobility Inability to transfer - to improve, our physical therapists will perform initial evaluation of pt's s tatus upon admission and devise an individualized program for Bed mobility Need for home safety evaluation - to improve, our physical therapists will perform initial evaluation of pt's status upon admission and devise an individualized program for Home Evaluation Need in caregiver upon discharge - to improve, our physical therapists will perform initial evaluatio n of pt's status upon admission and devise an individualized program for Caregiver Training New precaution - to improve, our physical therapists will perform initial evaluation of pt's status u diandra admission and devise an individualized program for Patient precaution education Edema - to improve, our physical therapists will perform initial evaluation of pt's status upon admi ssion and devise an individualized program for Elevation Training, and Lymphedema Therapy Poor balance - to improve, our physical therapists will perform initial evaluation of pt's status upo n admission and devise an individualized program for Balance Training Poor endurance - to improve, our physical therapists will perform initial evaluation of pt's status u diandra admission and devise an individualized program for Endurance Training Weakness - to improve, our physical therapists will perform initial evaluation of pt's status upon ad mission and devise an individualized program for Aquatic Therapy, Neuromuscular Reeducation, and Stre ngthening Achieving independence - to improve, our physical therapists will perform initial evaluation of pt's status upon admission and devise an individualized program for Community Reintegration Activities - Occupational Therapy ADL deficits - to improve, our occupation therapists will perform initial evaluation of pt's status u diandra admission and devise an individualized program for Bathing, Bed mobility, Community Reintegration , Cooking, Dressing, Eating, Fine Motor Skills, Grooming, Homemaking, Kitchen Mobility, Laundry, Mony ent Education, Safety Awareness, Splinting - Positioning, Transfers(Toilet, Tub, Shower), and Wheel C hair Management Cognitive deficits - to improve, our occupation therapists will perform initial evaluation of pt's st atus upon admission and devise an individualized program for Cognition - orientation Need for hearing healthcare practitioner - to improve, our occupation therapists will perform initial evaluation of pt's s tatus upon admission and devise an individualized program for Caregiver Training Weakness - to improve, our occupation therapists will perform initial evaluation of pt's status upon admission and devise an individualized program for Aquatic Therapy, Balance, Endurance, UE ROM, and U E strengthening MEDICAL PLAN: - Diet Type Start ADA 1800 jesús - Diet - Liquid Texture Start Regular - Tube Feed Start N/A - Other See attached MAR (Medication Administration Record) [id number].pdf - Diet - Solid Texture Regular - Shower shower DISCHARGE PLAN: - Estimated Length of Stay (days) 10. - Consensus on plan Discharge plan has been discussed with primary caregiver. Patient/Family is in agreement with the jeramie n. Primary caregiver is in agreement with the plan. - Patient/Family Goals Return home with assistance. - Planned Living Setting Upon Discharge Home, to live with Family/Relatives. SIGNATURE PANEL: (CDT)
[2018-08-21] MEDS: PROMOD 30 ML DOSE PO SCH (20:00)
[2018-08-21] MEDS: ATORVASTATIN 80 MG TAB PO SCH (20:01)
--- NOTE | 2018-08-22 01:59 | CON ---
Date of Consultation: 08/20/[address] Keller on 08/20/2018 for rehabilitation. I saw the patient on 08/20/2018. Reason For Consultation: History of CAD. History Of Present Illness: Ms. Gonzalez is a 78-year-old, Latin-Scottish woman, very well known to me from previous office visits and admission. She has a history of dyslipidemia, coronary artery dis ease, congestive heart failure, gastroesophageal reflux disease, COPD, and atrial fibrillation. She was recently in the hospital about a month ago for a non-ST elevation myocardial infarction. The cat heterization shows severe coronary artery disease and the initial plan was for bypass surgery. She w as transferred to [facility] for that purpose; however, it was found out that she is allergi c to heparin according to her and she is also a [employer], very high risk for surgery and ble eding and so the surgery was canceled and she underwent stent of her LAD and her circumflex under bal loon pump guidance. She did well from that standpoint. She still has a wound that is healing where the balloon pump was. She had atrial fibrillation and treated with amiodarone, aspirin, and Plavix. She is not a candidate for anticoagulation. According to her, she was tested later for heparin and I found that she was not allergic. Her main issue right now is physical weakness and poor functional status and that is why she is here. She is denying any cardiac symptoms at this point. Past Medical History: As stated earlier. Allergies: TO IODINE, MORPHINE, AND BENADRYL. Review of Systems: Negative. Social History: Negative. Family History: Noncontributory. Medications: At this point include inhalers, metoprolol 12.5 twice a day, Protonix, amiodarone 200 m g daily, aspirin, Lipitor, Plavix, and Bumex and I believe she is on insulin as well. Physical Examination: General: She was pleasant, alert and oriented x3. No acute distress. Vital Signs: Stable, afebrile, sinus rhythm. HEENT: Negative. Neck: Supple with no bruit. Chest: Clear. Cardiac: Revealed a regular rhythm and rate. No murmurs, gallops, or rubs. Abdomen: Obese, but benign. Extremities: Revealed no clubbing, cyanosis, or edema. She had a dressing in the left groin where t he balloon pump was. This is being evaluated. Diagnostic Data: Fairly unremarkable except for a glucose of 179. Impression And Plan: 1.Coronary artery disease, status post stent of the circumflex and LAD, stable. 2.Atrial fibrillation, resolved on amiodarone, aspirin, and Plavix. 3.COPD, on inhalers. 4.Gastroesophageal reflux disease, on Protonix. 5.Hypertension, on metoprolol. 6.Dyslipidemia, on Lipitor. 7.Congestive heart failure, on Bumex. 8.Diabetes. 9.Chronic renal disease. 10.Allergy to iodine. 11.Left groin wound. I will continue her present regimen. Continue rehabilitation. Follow her blo od work. Consider surgical consultation or wound care. I will follow her as needed. ALEJANDRO/LIO Voice ID: [id number] Report ID: [id number]
[2018-08-22] MEDS: METOPROLOL TAR 25 MG TAB PO SCH ×2 (05:19→17:11)
[2018-08-22] MEDS: INSULIN -REGULAR HUMAN 50 UNIT/0.5 ML ML SQ SCH ×4 (07:23→20:43)
[2018-08-22] MEDS: PANTOPRAZOLE 40MG TABLET PO SCH (07:24)
[2018-08-22] MEDS ORDERED: EPOETIN ALFA 10,000 UNIT/ML SQ PRN (08:00)
[2018-08-22] MEDS: PROMOD 30 ML DOSE PO SCH ×3 (08:00→20:00)
[2018-08-22] MEDS: MINOCYCLINE HCL 50 MG CAP PO SCH ×2 (08:22→20:50)
[2018-08-22] MEDS: BUMETANIDE 1 MG TABLET PO SCH ×2 (08:24→17:11)
[2018-08-22] MEDS: FOLIC ACID 1 MG TABLET PO SCH (08:24)
[2018-08-22] MEDS: CLOPIDOGREL 75 MG TABLET PO SCH (08:25)
[2018-08-22] MEDS: THIAMINE HCL 100 MG TABLET PO SCH (08:25)
[2018-08-22] MEDS: CYANOCOBALAMIN 1,000 MCG TAB PO SCH (08:25)
[2018-08-22] MEDS: AMIODARONE HCL 200 MG TAB PO SCH (08:26)
[2018-08-22] MEDS: ASPIRIN 81 MG CHEWABLE TABLET PO SCH (08:26)
[2018-08-22] MEDS: HEPARIN 5000 UNIT/ML 1 ML VIAL SQ SCH ×2 (09:19→20:00)
[2018-08-22] MEDS: Meropenem 500 MG in NA CHLORIDE 0.9% 100 ML IV SCH (09:50)
--- NOTE | 2018-08-22 12:04 | FAST ---
ENCOUNTER DATE AND TIME: 08/21/2018 08:00 (CDT) NAME HENRIQUE ARECHIGA DATE OF : 1940 DATE OF ADMISSION: 08/20/2018 16:21 (CDT) PHONE: AGE: 78 SSN# [id number] GENDER: Female ENCOUNTER PHYSICIAN: Dr. Rober Keller M.D. ADMISSION DIAGNOSIS: - Cardiac 09 - Cardiac Disorders () NSTEMI. EATING: Activity did not occur on this shift EATING - SCORE: 0-UNK GROOMING: Comb/brush hair Oral care Wash, rinse, and dry face Wash, rinse, and dry hands GROOMING - STEP 1: Does the patient require the assistance of a person or device, or need extra time when grooming? Yes. GROOMING - STEP 2: Does the patient require the assistance of a helper? Yes. GROOMING - STEP 3: How much assistance does the patient require from the helper? Incidental touching assistance from the helper while grooming GROOMING - SCORE: 4-MIN BATHING: Abdomen Buttocks Chest Left arm Left lower leg and foot Left upper leg Perineal area Right arm Right lower leg and foot Right upper leg BATHING - STEP 1: Does the patient require the assistance of a person or device, or need extra time when bathing? Yes. BATHING - STEP 2: Does the patient require the assistance of a helper? Yes. BATHING - STEP 3: How much assistance does the patient require from the helper? More than just incidental help BATHING - STEP 4: What percent of the body parts did the patient bathe WITHOUT the helper? Half or more of the body par ts BATHING - SCORE: 3-MOD DRESSING - UPPER BODY: Bra (three steps) T-shirt/pullover shirt (four steps) ARTICLES SCORE Total number of steps: 7 DRESSING - UPPER BODY - STEP 1: Does the patient require help from a person or device, or need extra time when dressing above the mickey st? Yes. DRESSING - UPPER BODY - STEP 2: Does the patient require the assistance of a helper? Yes. DRESSING - UPPER BODY - STEP 3: Does the helper touch the patient while dressing? Yes. DRESSING - UPPER BODY - STEP 4: How many of the total steps does the patient complete on his/her own? 4 DRESSING - UPPER BODY - SCORE: 3-MOD DRESSING - LOWER BODY: Elastic waist pants (three steps) Sock - Left foot (one step) Sock - Right foot (one step) Tied or buckled shoe - Left foot (two steps) Tied or buckled shoe - Right foot (two steps) Underwear (three steps) ARTICLES SCORE Total number of steps: 12 DRESSING - LOWER BODY - STEP 1: Does the patient require help from a person or device, or need extra time when dressing below the mickey st? Yes. DRESSING - LOWER BODY - STEP 2: Does the patient require the assistance of a helper? Yes. DRESSING - LOWER BODY - STEP 3: Does the helper touch the patient while dressing? Yes. DRESSING - LOWER BODY - STEP 4: How many of the total steps does the patient complete on his/her own? 2 DRESSING - LOWER BODY - STEP 5: Does patient require total assistance for dressing below the waist such as the helper holding clothin g and performing basically all the activities? No. DRESSING - LOWER BODY - SCORE: 2-MAX TOILETING: Activity did not occur on this shift TOILETING - SCORE: 0-UNK BLADDER MANAGEMENT: Activity did not occur on this shift BLADDER MANAGEMENT - SCORE: 7-IND BOWEL MANAGEMENT: Activity did not occur on this shift BOWEL MANAGEMENT - SCORE: 7-IND TRANSFERS: BED, CHAIR, WHEELCHAIR: Activity did not occur on this shift TRANSFERS: BED, CHAIR, WHEELCHAIR - SCORE: 0-UNK TRANSFERS: TOILET: Activity did not occur on this shift TRANSFERS: TOILET - SCORE: 0-UNK TRANSFERS: SHOWER: TRANSFERS: SHOWER - STEP 1: Does the patient require the assistance of a person or device, or need extra time with shower transfe rs? Yes. TRANSFERS: SHOWER - STEP 2: Does the patient require the assistance of a helper? Yes. TRANSFERS: SHOWER - STEP 3: How much assistance does the patient require from the helper? More than incidental help TRANSFERS: SHOWER - STEP 4: How much more help does the patient require from the helper? Lifting the patient either up OR down fr om the wheelchair onto the shower chair TRANSFERS: SHOWER - SCORE: 3-MOD TRANSFERS: TUB: Activity did not occur on this shift TRANSFERS: TUB - SCORE: 0-UNK LOCOMOTION: WALK: Activity did not occur on this shift LOCOMOTION: WALK - SCORE: 0-UNK LOCOMOTION: WHEELCHAIR: Activity did not occur on this shift LOCOMOTION: WHEELCHAIR - SCORE: 0-UNK LOCOMOTION: STAIRS: Activity did not occur on this shift LOCOMOTION: STAIRS - SCORE: 0-UNK COMPREHENSION: COMPREHENSION: TYPE: Both COMPREHENSION - STEP 1: Does the patient require help from a person or device, or need extra time to understand complex and a bstract ideas (such as current events, finances, discharge planning, medical issues, relationships, e tc)? No. COMPREHENSION - STEP 2: Does the patient need extra time, require an assistive device (such as glasses for visual comprehensi on or a hearing aid for auditory comprehension) or does s/he have mild difficulty understanding compl ex and abstract information? Yes. COMPREHENSION - SCORE: 6-FAHAD EXPRESSION EXPRESSION: TYPE: Both EXPRESSION - STEP 1: Does the patient require help from a person or device, or need extra time expressing complex and abst ract ideas (such as current events, finances, discharge planning, medical issues, relationships, etc) ? No. EXPRESSION - STEP 2: Does the patient need extra time, require an assistive device (such as augmentive communication syste m or a communication board), OR does s/he have mild difficulty expressing complex and abstract ideas (including mild dysarthria or mild word-find problems)? Yes. EXPRESSION - SCORE: 6-FAHAD SOCIAL INTERACTION: SOCIAL INTERACTION - STEP 1: Does the patient require a helper to interact with others in social and therapeutic situations? No. SOCIAL INTERACTION - STEP 2: Does the patient need extra time in social situations, OR does s/he interact with staff, other patien ts, and family members ONLY in structured environments, OR does s/he require medication for social in teraction? Yes, patient needs extra time SOCIAL INTERACTION - SCORE: 6-FAHAD PROBLEM SOLVING: PROBLEM SOLVING - STEP 1: Does the patient need help from a person or device, or need extra time to solve complex problems such as managing a checking account or confronting interpersonal problems? No. PROBLEM SOLVING - STEP 2: Does the patient require extra time to make decisions or solve problems, OR does s/he have slight dif ficulty reading, initiating, or self-correcting in unfamiliar situations? Yes, patient needs extra ti me. PROBLEM SOLVING - SCORE: 6-FAHAD MEMORY: MEMORY - STEP 1: Does the patient need help from a person or device, or need extra time to remember frequently encount ered people, daily routines, and executing requests? No. MEMORY - STEP 2: Does the patient have slight difficulty recognizing frequently encountered people, daily routines, or executing requests without the need for repetition or using self-initiated or environmental cues to remember? Yes. MEMORY - SCORE: 6-FAHAD SIGNATURE PANEL: The following modified sections: Eating - Score, Grooming - Score, Bathing - Score, Dressing - Upper Body - Score, Dressing - Lower Body - Score, Toileting - Score, Transfers: Bed, Chair, Wheelchair - S core, Transfers: Toilet - Score, Transfers: Tub - Score, Transfers: Shower - Score, Comprehension - S core, Expression - Score, Social Interaction - Score, Problem Solving - Score, Memory - Score were [e lectronically] signed by Shannon Connor OT on MonAug 22 2018 12:04:21 T-0500 (Central Daylight T letty)
--- NOTE | 2018-08-22 13:45 | FAST ---
SHIFT START DATE/TIME: 08/22/2018 07:00 (CDT) SHIFT END DATE/TIME: 08/22/2018 19:00 (CDT) NAME HENRIQUE ARECHIGA DATE OF : 1940 DATE OF ADMISSION: 08/20/2018 16:21 (CDT) PHONE: AGE: 78 N# [id number] GENDER: Female ENCOUNTER PHYSICIAN: Dr. Rober Keller M.D. ADMISSION DIAGNOSIS: - Cardiac 09 - Cardiac Disorders () NSTEMI. EATING: EATING - STEP 1: Does the patient require the assistance of a person or device, or need extra time when eating? Yes. EATING - STEP 2: Does the patient require the assistance of a helper? No, patient only requires an assistive device, O R s/he takes more than reasonable time to eat, OR there is a safety concern, OR s/he requires modifie d food consistency EATING - SCORE: 6-FAHAD GROOMING: Comb/brush hair Oral care Wash, rinse, and dry face Wash, rinse, and dry hands GROOMING - STEP 1: Does the patient require the assistance of a person or device, or need extra time when grooming? Yes. GROOMING - STEP 2: Does the patient require the assistance of a helper? Yes. GROOMING - STEP 3: How much assistance does the patient require from the helper? Cuing, coaxing, instructions, or encour agement for completion of grooming GROOMING - SCORE: 5-SUP BATHING: Activity did not occur on this shift BATHING - SCORE: 0-UNK DRESSING - UPPER BODY: T-shirt/pullover shirt (four steps) ARTICLES SCORE Total number of steps: 4 DRESSING - UPPER BODY - STEP 1: Does the patient require help from a person or device, or need extra time when dressing above the mickey st? Yes. DRESSING - UPPER BODY - STEP 2: Does the patient require the assistance of a helper? Yes. DRESSING - UPPER BODY - STEP 3: Does the helper touch the patient while dressing? No. DRESSING - UPPER BODY - SCORE: 5-SUP DRESSING - LOWER BODY: ARTICLES SCORE Total number of steps: 3 DRESSING - LOWER BODY - STEP 1: Does the patient require help from a person or device, or need extra time when dressing below the mickey st? Yes. DRESSING - LOWER BODY - STEP 2: Does the patient require the assistance of a helper? Yes. DRESSING - LOWER BODY - STEP 3: Does the helper touch the patient while dressing? No. DRESSING - LOWER BODY - SCORE: 5-SUP TOILETING: TOILETING - STEP 1: Does the patient require the assistance of a person or device, or need extra time with toileting? Yes . TOILETING - STEP 2: Does the patient require the assistance of a helper? Yes. TOILETING - STEP 3: How much assistance does the patient require from the helper? Hands-on assistance from the helper TOILETING - STEP 4: Of the 3 tasks: 1) Adjusting clothing prior to use, 2) Cleansing of perineal area, 3) Adjusting clot jenniffer after use; How many tasks does the patient perform WITHOUT assistance of the helper? Two tasks TOILETING - SCORE: 3-MOD BLADDER MANAGEMENT: BLADDER MANAGEMENT - STEP 1: Does the patient control the bladder completely and intentionally without equipment or devices or med ications, and is always continent? Yes. BLADDER MANAGEMENT - SCORE: 7-IND BOWEL MANAGEMENT: BOWEL MANAGEMENT - STEP 1: Does the patient control bowels completely and intentionally without equipment devices or medications AND is always continent? No. BOWEL MANAGEMENT - STEP 2: Does the patient require the assistance of a helper? No, patient requires and manages independently a n assistive device such as a bedpan, bedside commode, absorbent pad, incontinent device, or collectin g device BOWEL MANAGEMENT - SCORE: 6-FAHAD TRANSFERS: BED, CHAIR, WHEELCHAIR: TRANSFERS: BED, CHAIR, WHEELCHAIR - STEP 1: Does the patient require assistance of a person or device, or need extra time with bed, chair, or whe elchair transfers? Yes. TRANSFERS: BED, CHAIR, WHEELCHAIR - STEP 2: Does the patient require the assistance of a helper? Yes. TRANSFERS: BED, CHAIR, WHEELCHAIR - STEP 3: How much assistance does the patient require from the helper? Steadying/guiding assistance TRANSFERS: BED, CHAIR, WHEELCHAIR - SCORE: 4-MIN TRANSFERS: TOILET: TRANSFERS: TOILET - STEP 1: Does the patient require the assistance of a person or device, or need extra time with toilet transfe rs? Yes. TRANSFERS: TOILET - STEP 2: Does the patient require the assistance of a helper? Yes. TRANSFERS: TOILET - STEP 3: How much assistance does the patient require from the helper? Patient performs half or more of the tr ansferring tasks TRANSFERS: TOILET - STEP 4: Does the patient need only incidental help such as contact guard or steadying during toilet transfer? Yes. TRANSFERS: TOILET - SCORE: 4-MIN TRANSFERS: SHOWER: Activity did not occur on this shift TRANSFERS: SHOWER - SCORE: 0-UNK TRANSFERS: TUB: Activity did not occur on this shift TRANSFERS: TUB - SCORE: 0-UNK LOCOMOTION: WALK: Activity did not occur on this shift LOCOMOTION: WALK - SCORE: 0-UNK LOCOMOTION: WHEELCHAIR: Activity did not occur on this shift LOCOMOTION: WHEELCHAIR - SCORE: 0-UNK COMPREHENSION: COMPREHENSION: TYPE: Both COMPREHENSION - STEP 1: Does the patient require help from a person or device, or need extra time to understand complex and a bstract ideas (such as current events, finances, discharge planning, medical issues, relationships, e tc)? No. COMPREHENSION - STEP 2: Does the patient need extra time, require an assistive device (such as glasses for visual comprehensi on or a hearing aid for auditory comprehension) or does s/he have mild difficulty understanding compl ex and abstract information? No. COMPREHENSION - SCORE: 7-IND EXPRESSION EXPRESSION: TYPE: Both EXPRESSION - STEP 1: Does the patient require help from a person or device, or need extra time expressing complex and abst ract ideas (such as current events, finances, discharge planning, medical issues, relationships, etc) ? No. EXPRESSION - STEP 2: Does the patient need extra time, require an assistive device (such as augmentive communication syste m or a communication board), OR does s/he have mild difficulty expressing complex and abstract ideas (including mild dysarthria or mild word-find problems)? Yes. EXPRESSION - SCORE: 6-FAHAD SOCIAL INTERACTION: SOCIAL INTERACTION - STEP 1: Does the patient require a helper to interact with others in social and therapeutic situations? No. SOCIAL INTERACTION - STEP 2: Does the patient need extra time in social situations, OR does s/he interact with staff, other patien ts, and family members ONLY in structured environments, OR does s/he require medication for social in teraction? Yes, patient needs extra time SOCIAL INTERACTION - SCORE: 6-FAHAD PROBLEM SOLVING: PROBLEM SOLVING - STEP 1: Does the patient need help from a person or device, or need extra time to solve complex problems such as managing a checking account or confronting interpersonal problems? No. PROBLEM SOLVING - STEP 2: Does the patient require extra time to make decisions or solve problems, OR does s/he have slight dif ficulty reading, initiating, or self-correcting in unfamiliar situations? Yes, patient needs extra ti me. PROBLEM SOLVING - SCORE: 6-FAHAD MEMORY: MEMORY - STEP 1: Does the patient need help from a person or device, or need extra time to remember frequently encount ered people, daily routines, and executing requests? Yes. MEMORY - STEP 2: How often does the patient need help to remember frequently encountered people, daily routines, and e xecuting requests? 10% - 24% of the time MEMORY - SCORE: 4-MIN SIGNATURE PANEL: The following modified sections: Eating - Score, Grooming - Score, Bathing - Score, Dressing - Upper Body - Score, Dressing - Lower Body - Score, Toileting - Score, Bladder Management - Score, Bowel Man agement - Score, Transfers: Bed, Chair, Wheelchair - Score, Transfers: Toilet - Score, Transfers: Dorothea wer - Score, Transfers: Tub - Score, Locomotion: Walk - Score, Locomotion: Wheelchair - Score, Compre hension - Score, Expression - Score, Social Interaction - Score, Problem Solving - Score, Memory - Sc ore were [electronically] signed by Hector Macias on MonAug 22 2018 13:44:28 GMT-0500 (Central Daylight Time)
--- NOTE | 2018-08-22 15:34 | FAST ---
ENCOUNTER DATE AND TIME: 08/22/2018 08:00 (CDT) NAME HENRIQUE ARECHIGA DATE OF : 1940 DATE OF ADMISSION: 08/20/2018 16:21 (CDT) PHONE: AGE: 78 SSN# [id number] GENDER: Female ENCOUNTER PHYSICIAN: Dr. Rober Keller M.D. ADMISSION DIAGNOSIS: - Cardiac 09 - Cardiac Disorders () NSTEMI. EATING: Activity did not occur on this shift EATING - SCORE: 0-UNK GROOMING: Activity did not occur on this shift GROOMING - SCORE: 0-UNK BATHING: Activity did not occur on this shift BATHING - SCORE: 0-UNK DRESSING - UPPER BODY: Activity did not occur on this shift Patient is not dressing in public clothing ARTICLES SCORE Total number of steps: 0 DRESSING - UPPER BODY - SCORE: 0-UNK DRESSING - LOWER BODY: Activity did not occur on this shift Patient is not dressing in public clothing ARTICLES SCORE Total number of steps: 0 DRESSING - LOWER BODY - SCORE: 0-UNK TOILETING: Activity did not occur on this shift TOILETING - SCORE: 0-UNK BLADDER MANAGEMENT: Activity did not occur on this shift BLADDER MANAGEMENT - SCORE: 7-IND BOWEL MANAGEMENT: Activity did not occur on this shift BOWEL MANAGEMENT - SCORE: 7-IND TRANSFERS: BED, CHAIR, WHEELCHAIR: TRANSFERS: BED, CHAIR, WHEELCHAIR - STEP 1: Does the patient require assistance of a person or device, or need extra time with bed, chair, or whe elchair transfers? Yes. TRANSFERS: BED, CHAIR, WHEELCHAIR - STEP 2: Does the patient require the assistance of a helper? Yes. TRANSFERS: BED, CHAIR, WHEELCHAIR - STEP 3: How much assistance does the patient require from the helper? Steadying/guiding assistance TRANSFERS: BED, CHAIR, WHEELCHAIR - SCORE: 4-MIN TRANSFERS: TOILET: Activity did not occur on this shift TRANSFERS: TOILET - SCORE: 0-UNK TRANSFERS: SHOWER: Activity did not occur on this shift TRANSFERS: SHOWER - SCORE: 0-UNK TRANSFERS: TUB: Activity did not occur on this shift TRANSFERS: TUB - SCORE: 0-UNK LOCOMOTION: WALK: LOCOMOTION: WALK - STEP 1: Does the patient need help from a person or device, or need extra time to walk 150 feet? Yes. LOCOMOTION: WALK - STEP 2: How much assistance does the patient require to walk a minimum of 150 feet? Only incidental help such as contact guarding or steadying LOCOMOTION: WALK - SCORE: 4-MIN LOCOMOTION: WHEELCHAIR: Activity did not occur on this shift LOCOMOTION: WHEELCHAIR - SCORE: 0-UNK LOCOMOTION: STAIRS: LOCOMOTION: STAIRS - STEP 1: Does the patient need help to go up and down 12 to 14 stairs? Yes. LOCOMOTION: STAIRS - STEP 2: How much assistance does the patient need from the helper to go a minimum of 12 to 14 stairs? The pat ient goes less than 12 stairs, but at least 4 stairs LOCOMOTION: STAIRS - SCORE: 2-MAX COMPREHENSION: COMPREHENSION - SCORE: 0-UNK EXPRESSION EXPRESSION - SCORE: 0-UNK SOCIAL INTERACTION: SOCIAL INTERACTION - SCORE: 0-UNK PROBLEM SOLVING: PROBLEM SOLVING - SCORE: 0-UNK MEMORY: MEMORY - SCORE: 0-UNK SIGNATURE PANEL: The following modified sections: Transfers: Bed, Chair, Wheelchair - Score, Transfers: Toilet - Score , Locomotion: Walk - Score, Locomotion: Wheelchair - Score, Locomotion: Stairs - Score were [electron icanicky] signed by Edwin Glez PTA on MonAug 22 2018 15:34:20 GMT-0500 (Central Daylight Time)
--- NOTE | 2018-08-22 19:20 | PAPE ---
PATIENT: [facility] MR# [id number] REFERRING DOCTOR Deo Sung EVALUATION DATE AND TIME 08/22/2018 19:18 (CDT) NAME HENRIQUE ARECHIGA DATE OF 1940 AGE 78 PHONE SSN# [id number] GENDER female EVALUATING PHYSICIAN Dr. Rober Keller M.D. ADMISSION DIAGNOSIS: NSTEMI ONSET DATE 07/31/2018 SECONDARY/COMORBID DIAGNOSES TIERED: - Non-Tiered unstable angina CKD Stage 4 IDDM - N/A DIABETIC NEUROPATHY mild thrombocytopenia POST-ADMISSION FUNCTIONAL/MEDICAL STATUS: - Bladder Same accident frequency: Ind - No accidents in the past 7 days - Bowel Same accident frequency: Ind - No accidents in the past 7 days - Walking Same score based on distance walked: 0(N/A) STATUS CHANGE EVALUATION: No change in Functional or Medical Status is identified compared with Pre-Admission screening. PATIENT NEEDS CLOSE MEDICAL SUPERVISION BY A REHABILITATION PHYSICIAN FOR: Bowel and Bladder Management Coordination of Treatment Team Medical and Co-Morbidity Management Wound Care PATIENT REQUIRES 24X7 REHAB NURSING FOR MEDICAL AND FUNCTIONAL MGT. OF THE FOLLOWING DEFICITS: ADL's Ambulation Bowel and Bladder Management Cognition Communication Disease Management Medication Management Patient/Family Education Providing Safe Environment Skin Integrity Transfers PATIENT REQUIRES INTENSIVE, COORDINATED INTERDISCIPLINARY APPROACH TO REHAB: Arranging Home Equipment/Services Discharge Planning Family Intervention/Training Chicken Stuffer/Case Management LIST OF IDENTIFIED AND POTENTIAL PROBLEMS: Alteration in leisure activities Bladder, Incontinence Bowel, Incontinence Infection, Actual or Potential Mobility Impaired Pain, Alteration in Comfort Self Care Deficit Skin Integrity, Actual or Potential Urinary Tract Infection (UTI), Actual or Potential PATIENT COULD BE AT RISK FOR COMPLICATIONS FROM ADVERSE MEDICAL CONDITIONS DUE TO HIS/HER COMORBIDITI ES AND THE RIGORS OF THE INTENSIVE REHABILLITATION PROGRAM. METHODS OR INTERVENTIONS TO AVOID COMPLIC ATIONS INCLUDE: - Bleeding Assess lab values and manage abnormalities. Nursing to teach precautions for anti-coagulation therapy . Wound to be assessed every shift. - Infection Clinical staff to assess and manage the signs and symptoms of infection including fever, redness, war mth, etc. - Urinary Tract Infection - Falls Patient will be evaluated for Fall Precautions and will be placed on Fall Precautions as indicated pe r protocol. - Skin Breakdown Nursing will assess skin daily using assessment tool and will place on Skin Breakdown Precautions as indicated per protocol. - Pain Clinical staff may employ non-medication methods such as massage, distraction, decrease stimulus, etc . as needed. Clinical staff will assess patient's pain level every shift per protocol to assess and e nsure pain management effectiveness. Medications will be given and the pain level re-assessed. PRELIMINARY PLAN OF CARE: - Physical Therapy Patient needs Physical Therapy for a daily minimum of 1.5 hours at least 5 out of 7 days, to improve: Mobility, Strengthening, Transfers, Stretching, ROM, Endurance, Ability to manage stairs, Gait, and Balance. - Speech Therapy Patient needs Speech Therapy for a daily minimum of 0.5 hours at least 5 out of 7 days, to improve: S wallowing, Cognition, Language Skills, and Compensatory Strategies. - Rehabilitation Nursing Patient requires 24x7 Rehabilitation Nursing for: Pain Issues, Identifying and preventing risk factor s, Monitoring and reporting current medical conditions, Assisting with ambulation and transfer, Alva ting with all ADL-s, Teaching patients about disease process and medications, Family teaching, Provid ing safe environment, Bowel and Bladder Issues, Skin Integrity, and Medication Management. Patient needs Chicken Stuffer and/or Case Management for: Discharge Planning, Arranging Home Equipmen t or Services, and Family Interventions. - Dietary and Nutrition Services Patient needs Dietary and Nutrition Services for: Adequate Nutrition, Nutritional Supplements, and Nu tritional Education. - Occupational Therapy Patient needs Occupational Therapy for a daily minimum of 1.5 hours at least 5 out of 7 days, to impr ove Activities of Daily Living, including: Eating, Grooming, Bathing, Dressing, Toileting, Toilet Tra nsfers, Community Reintegration, Higher functional activities, Adaptive Equipment, Splinting, Househo ld Tasks, and Other activities as determined. POTENTIAL FUNCTIONAL GOALS FOR PATIENT TO ACHIEVE BY DISCHARGE: - Safety Precaution Patient will remain free from falls or injury at time of discharge. - Bed Mobility Patient will perform bed mobility at 4-Aj level of assistance. - Transfers Patient will complete transfers from bed to chair at 4-Aj level of assistance. - Mobility Patient will ambulate 150 ft with 4-Aj level of assistance with RW. PATIENT REHAB POTENTIAL Chace ARECHIGA is able and expected to receive 3 hours of individualized therapy daily on at least 5 of every 7 days Chace ARECHIGA's prognosis for significant practical improvement within a reasonable period of time appe ars Good Expected level of measurable improvement will be of a practical value to Chace ARECHIGA's functional cap acity or adaptations to impairments Has a viable Discharge Plan Medically appropriate; condition is sufficiently stable to participate in intensive rehab program DISCHARGE PLAN: - Estimated Length of Stay (days) 10. - Consensus on plan Discharge plan has been discussed with primary caregiver. Patient/Family is in agreement with the jeramie n. Primary caregiver is in agreement with the plan. - Patient/Family Goals Return home with assistance. - Planned Living Setting Upon Discharge Home, to live with Family/Relatives. CONCLUSION ON REHABILITATION NECESSITY: I have evaluated patient's pre-admission functional status and, comparing it to the patient's post-ad mission functional status now, I conclude that the pre-admission assessment was accurate. Patient's c ondition on admission supports the medical necessity of admission to IRF. It is safe to proceed with patient's therapy program. SIGNATURE PANEL: (CDT)
--- NOTE | 2018-08-22 19:22 | R.PN ---
ENCOUNTER DATE AND TIME: 08/22/2018 19:18 (CDT) NAME HENRIQUE ARECHIGA DATE OF : 1940 DATE OF ADMISSION: 08/20/2018 16:21 (CDT) NSTEMICHIEF COMPLAINT: Debility and NSTSMI SUBJECTIVE: Pt denied any Shortness of Breath. Pt denied any depression. Hgb 9.8, glucose 131 to 231. Ambulated 350' with contact guard assistance using a rolling walker. Up and down 10 steps with contac t guard assistance. VITAL SIGNS Temperature: 97.4 F SBP/DBP: 105/71 Pulse: 73 Resp: 16 MEDICATION ALLERGIES: Heparin analogues iodine and iodide containing products morphine vicodin codeine levaquin phenergan reglan benadryl ENVIRONMENTAL ALLERGIES: - Substance Allergies None Known - Other Allergies None Known NURSING: - Shower allowing shower ACTIVITIES OOB only with supervision THERAPIES: - Dietary and Nutrition Adequate Nutrition. Nutritional Education. Nutritional Supplements. PHYSICAL EXAM - Gen Alert and awake Lying in bed No apparent distress Oriented to: person, time, and place - Skin No skin breakdown. No abnormalities - Eyes No abnormalities - ENMT No abnormalities - Neck No abnormalities - CVS RRR - Chest No abnormalities - Abd Soft - GI + bowel sounds Deferred - No abnormalities - Ext No significant edema. - MSK 4/5 weakness in both lower extremities. - Neuro No focal deficits - Psych No abnormalities ASSESSMENT: Pt. is a 78 yo Right-handed white female.On 07/31/2018 she was admitted to [facility] with diagnosis NSTEMI.Her impairment category is Cardiac 09 - Cardiac Disorders (09).Pre-mor bidly, Pt. was independent/mod-I in Self-Care, Sphincter Control, Transfers Control, Communication, S ocial Cognition, and Locomotion; and she had good Sphincter Control.Currently, she has deficits of Tr ansfers Control, Communication, Social Cognition, Endurance, Balance, Safety Awareness, Self-Care, an d Locomotion.Pt. is now referred to [facility] for acute in-patient rehabilita tion in order to maximize patient's functional independence in activities of daily living, strength, ROM, and mobility.- Rehab Goal Patient has realistic goal of being discharged at assistance level 6-Tracie to reside at Home with Fam giovanna/Relatives. MDM/PLAN: - Physical Therapy Gait dysfunction - to improve, our physical therapists will perform initial evaluation of pt's statu s upon admission and devise an individualized program for Gait Training, and Wheel Chair mobility Inability to transfer - to improve, our physical therapists will perform initial evaluation of pt's status upon admission and devise an individualized program for Bed mobility Need for home safety evaluation - to improve, our physical therapists will perform initial evaluatio n of pt's status upon admission and devise an individualized program for Home Evaluation Need in caregiver upon discharge - to improve, our physical therapists will perform initial evaluati on of pt's status upon admission and devise an individualized program for Caregiver Training New precaution - to improve, our physical therapists will perform initial evaluation of pt's status upon admission and devise an individualized program for Patient precaution education Edema - to improve, our physical therapists will perform initial evaluation of pt's status upon admis luis miguel and devise an individualized program for Elevation Training, and Lymphedema Therapy Poor balance - to improve, our physical therapists will perform initial evaluation of pt's status up on admission and devise an individualized program for Balance Training Poor endurance - to improve, our physical therapists will perform initial evaluation of pt's status upon admission and devise an individualized program for Endurance Training Weakness - to improve, our physical therapists will perform initial evaluation of pt's status upon a dmission and devise an individualized program for Aquatic Therapy, Neuromuscular Reeducation, and Str engthening Achieving independence - to improve, our physical therapists will perform initial evaluation of pt's status upon admission and devise an individualized program for Community Reintegration Activities - Occupational Therapy ADL deficits - to improve, our occupation therapists will perform initial evaluation of pt's status upon admission and devise an individualized program for Bathing, Bed mobility, Community Reintegratio n, Cooking, Dressing, Eating, Fine Motor Skills, Grooming, Homemaking, Kitchen Mobility, Laundry, Pat ient Education, Safety Awareness, Splinting - Positioning, Transfers(Toilet, Tub, Shower), and Wheel Chair Management Cognitive deficits - to improve, our occupation therapists will perform initial evaluation of pt's s tatus upon admission and devise an individualized program for Cognition - orientation Need for emergency care tech - to improve, our occupation therapists will perform initial evaluation of pt's status upon admission and devise an individualized program for Caregiver Training Weakness - to improve, our occupation therapists will perform initial evaluation of pt's status upon admission and devise an individualized program for Aquatic Therapy, Balance, Endurance, UE ROM, and UE strengthening - Other See attached MAR (Medication Administration Record) [id number].pdf See attached MAR (Medication Administration Record) [id number].pdf - Diet Type Continue ADA 1800 jesús - Diet - Liquid Texture Continue Regular - Tube Feed Continue N/A - Diet - Solid Texture Continue Regular - Shower allowing shower FUNCTIONAL STATUS: UPDATED AT WEEKLY TEAM CONFERENCE - Bladder Same accident frequency: 7-Ind - No accidents in the past 7 days - Bowel Same accident frequency: 7-Ind - No accidents in the past 7 days - Walking Same score based on distance walked: 0(N/A) FUNCTIONAL STATUS: - Self-Care A. Eating Ind B. Grooming sup C. Bathing Aj D. Dressing - Upper sup E. Dressing - Lower modA F. Toileting modA - Sphincter Control G: Bladder control Ind H: Bowel control Ind - Transfers Control I. Bed/Chair/Wheelchair CGA J. Toilet CGA K. Tub/Shower CGA - Locomotion L. Walk/Wheelchair (B) maxA M. Stairs ADNO - Communication N. Comprehension (B) sup O. Expression (B) sup - Social Cognition P. Social Interaction sup Q. Problem Solving sup R. Memory sup - Endurance Poor - Balance Fair - Safety Awareness Fair CURRENT FUNC. DEFICITS: Transfers Control, Communication, Social Cognition, Endurance, Balance, Safety Awareness, Self-Care, and Locomotion SIGNATURE PANEL: (CDT)
[2018-08-22] MEDS: ONDANSETRON 4 MG (ODT) TAB PO PRN (19:59)
[2018-08-22] MEDS ORDERED: SODIUM CHLORIDE 0.9% 10ML INJ IV SCH (20:00)
[2018-08-22] MEDS: DOCUSATE NA/SENNA CONC 1 TAB PO SCH (20:50)
[2018-08-22] MEDS: ATORVASTATIN 80 MG TAB PO SCH (20:50)
[2018-08-22] MEDS: SODIUM CHLORIDE 0.9% 10ML INJ IV SCH (20:51)
--- NOTE | 2018-08-23 01:28 | FAST ---
SHIFT START DATE/TIME: 08/22/2018 19:00 (CDT) SHIFT END DATE/TIME: 08/23/2018 07:00 (CDT) NAME HENRIQUE ARECHIGA DATE OF : 1940 DATE OF ADMISSION: 08/20/2018 16:21 (CDT) PHONE: AGE: 78 N# [id number] GENDER: Female ENCOUNTER PHYSICIAN: Dr. Rober Keller M.D. ADMISSION DIAGNOSIS: - Cardiac 09 - Cardiac Disorders () NSTEMI. EATING: Activity did not occur on this shift EATING - SCORE: 0-UNK GROOMING: Wash, rinse, and dry hands GROOMING - STEP 1: Does the patient require the assistance of a person or device, or need extra time when grooming? Yes. GROOMING - STEP 2: Does the patient require the assistance of a helper? Yes. GROOMING - STEP 3: How much assistance does the patient require from the helper? Cuing, coaxing, instructions, or encour agement for completion of grooming GROOMING - SCORE: 5-SUP BATHING: Activity did not occur on this shift BATHING - SCORE: 0-UNK DRESSING - UPPER BODY: Patient is not dressing in public clothing ARTICLES SCORE Total number of steps: 0 DRESSING - UPPER BODY - SCORE: 0-UNK DRESSING - LOWER BODY: Patient is not dressing in public clothing ARTICLES SCORE Total number of steps: 0 DRESSING - LOWER BODY - SCORE: 0-UNK TOILETING: TOILETING - STEP 1: Does the patient require the assistance of a person or device, or need extra time with toileting? Yes . TOILETING - STEP 2: Does the patient require the assistance of a helper? Yes. TOILETING - STEP 3: How much assistance does the patient require from the helper? Hands-on assistance from the helper TOILETING - STEP 4: Of the 3 tasks: 1) Adjusting clothing prior to use, 2) Cleansing of perineal area, 3) Adjusting clot jenniffer after use; How many tasks does the patient perform WITHOUT assistance of the helper? Three tasks with steadying assistance from the helper TOILETING - SCORE: 4-MIN BLADDER MANAGEMENT: BLADDER MANAGEMENT - STEP 1: Does the patient control the bladder completely and intentionally without equipment or devices or med ications, and is always continent? No. BLADDER MANAGEMENT - STEP 2: Does the patient require the assistance of a helper? Yes. BLADDER MANAGEMENT - STEP 3: How much assistance does the patient require from the helper? Only supervision, stand-by, cuing, or c oaxing BLADDER MANAGEMENT - SCORE: 5-SUP BOWEL MANAGEMENT: BOWEL MANAGEMENT - STEP 1: Does the patient control bowels completely and intentionally without equipment devices or medications AND is always continent? No. BOWEL MANAGEMENT - STEP 2: Does the patient require the assistance of a helper? Yes. BOWEL MANAGEMENT - STEP 3: How much assistance does the patient require from the helper? Patient requires supervision, stand by, cueing, coaxing, or setup of equipment - placing within reach of patient and emptying device / bedpa nd or BSC bucket - to maintain either satisfactory bowel pattern or managing an external device such as an absorbent pad, colostomy bag / ileostomy bag BOWEL MANAGEMENT - SCORE: 5-SUP TRANSFERS: BED, CHAIR, WHEELCHAIR: TRANSFERS: BED, CHAIR, WHEELCHAIR - STEP 1: Does the patient require assistance of a person or device, or need extra time with bed, chair, or whe elchair transfers? Yes. TRANSFERS: BED, CHAIR, WHEELCHAIR - STEP 2: Does the patient require the assistance of a helper? Yes. TRANSFERS: BED, CHAIR, WHEELCHAIR - STEP 3: How much assistance does the patient require from the helper? Steadying/guiding assistance TRANSFERS: BED, CHAIR, WHEELCHAIR - SCORE: 4-MIN TRANSFERS: TOILET: TRANSFERS: TOILET - STEP 1: Does the patient require the assistance of a person or device, or need extra time with toilet transfe rs? Yes. TRANSFERS: TOILET - STEP 2: Does the patient require the assistance of a helper? Yes. TRANSFERS: TOILET - STEP 3: How much assistance does the patient require from the helper? Patient performs half or more of the tr ansferring tasks TRANSFERS: TOILET - STEP 4: Does the patient need only incidental help such as contact guard or steadying during toilet transfer? Yes. TRANSFERS: TOILET - SCORE: 4-MIN TRANSFERS: SHOWER: Activity did not occur on this shift TRANSFERS: SHOWER - SCORE: 0-UNK TRANSFERS: TUB: Activity did not occur on this shift TRANSFERS: TUB - SCORE: 0-UNK LOCOMOTION: WALK: Activity did not occur on this shift LOCOMOTION: WALK - SCORE: 0-UNK LOCOMOTION: WHEELCHAIR: Activity did not occur on this shift LOCOMOTION: WHEELCHAIR - SCORE: 0-UNK COMPREHENSION: COMPREHENSION: TYPE: Both COMPREHENSION - STEP 1: Does the patient require help from a person or device, or need extra time to understand complex and a bstract ideas (such as current events, finances, discharge planning, medical issues, relationships, e tc)? No. COMPREHENSION - STEP 2: Does the patient need extra time, require an assistive device (such as glasses for visual comprehensi on or a hearing aid for auditory comprehension) or does s/he have mild difficulty understanding compl ex and abstract information? Yes. COMPREHENSION - SCORE: 6-FAHAD EXPRESSION EXPRESSION: TYPE: Both EXPRESSION - STEP 1: Does the patient require help from a person or device, or need extra time expressing complex and abst ract ideas (such as current events, finances, discharge planning, medical issues, relationships, etc) ? No. EXPRESSION - STEP 2: Does the patient need extra time, require an assistive device (such as augmentive communication syste m or a communication board), OR does s/he have mild difficulty expressing complex and abstract ideas (including mild dysarthria or mild word-find problems)? No. EXPRESSION - SCORE: 7-IND SOCIAL INTERACTION: SOCIAL INTERACTION - STEP 1: Does the patient require a helper to interact with others in social and therapeutic situations? No. SOCIAL INTERACTION - STEP 2: Does the patient need extra time in social situations, OR does s/he interact with staff, other patien ts, and family members ONLY in structured environments, OR does s/he require medication for social in teraction? No. SOCIAL INTERACTION - SCORE: 7-IND PROBLEM SOLVING: PROBLEM SOLVING - STEP 1: Does the patient need help from a person or device, or need extra time to solve complex problems such as managing a checking account or confronting interpersonal problems? No. PROBLEM SOLVING - STEP 2: Does the patient require extra time to make decisions or solve problems, OR does s/he have slight dif ficulty reading, initiating, or self-correcting in unfamiliar situations? No. PROBLEM SOLVING - SCORE: 7-IND MEMORY: MEMORY - STEP 1: Does the patient need help from a person or device, or need extra time to remember frequently encount ered people, daily routines, and executing requests? No. MEMORY - STEP 2: Does the patient have slight difficulty recognizing frequently encountered people, daily routines, or executing requests without the need for repetition or using self-initiated or environmental cues to remember? No. MEMORY - SCORE: 7-IND SIGNATURE PANEL: The following modified sections: Eating - Score, Grooming - Score, Bathing - Score, Dressing - Upper Body - Score, Dressing - Lower Body - Score, Toileting - Score, Bladder Management - Score, Bowel Man agement - Score, Transfers: Bed, Chair, Wheelchair - Score, Transfers: Toilet - Score, Transfers: Dorothea wer - Score, Transfers: Tub - Score, Locomotion: Walk - Score, Locomotion: Wheelchair - Score, Compre hension - Score, Expression - Score, Social Interaction - Score, Problem Solving - Score, Memory - Sc ore were [electronically] signed by Yessenia Rae RN on MonAug 23 2018 01:26:48 T-0500 ([facility] Time)
[2018-08-23] MEDS: METOPROLOL TAR 25 MG TAB PO SCH ×2 (05:06→16:34)
[2018-08-23] MEDS: Meropenem 500 MG in NA CHLORIDE 0.9% 100 ML IV SCH (07:10)
[2018-08-23] MEDS: PANTOPRAZOLE 40MG TABLET PO SCH (07:10)
[2018-08-23] MEDS: SODIUM CHLORIDE 0.9% 10ML INJ IV SCH ×2 (07:10→20:00)
[2018-08-23] MEDS: INSULIN -REGULAR HUMAN 50 UNIT/0.5 ML ML SQ SCH ×4 (07:30→21:20)
--- NOTE | 2018-08-23 07:59 | P.CNS ---
Date of Consult: 08/22/18 Reason for Consult: OTIS/ CKD Requesting Physician: Rober Keller Chief Complaint: Weakness History of Present Illness: 78 yo HF CKD, HTN presented to the [facility] with diffuse weakness after a long stay at the hospital for acute CAD and OTIS. She required to episodes of dialysis during her treatment. She is now feeling better and doing well with PT. Ms. Gonzalez is a 78-year-old, Latin-Faro[place] woman. She has a history of dyslipidemia, coronary artery disease, congestive heart failure, gastroesophageal reflux disease, COPD, and atrial fibrillation. She was recently in the hospital about a month ago for a non-ST elevation myocardial infarction. The catheterization shows severe coronary artery disease and the initial plan was for bypass surgery. She was transferred to [facility] for that purpose; however, it was found out that she is allergic to heparin according to her and she is also a Hoahaoism, very high risk for surgery and bleeding and so the surgery was canceled and she underwent stent of her LAD and her circumflex under balloon pump guidance. She did well from that standpoint. She still has a wound that is healing where the balloon pump was. She had atrial fibrillation and treated with amiodarone, aspirin, and Plavix. She is not a candidate for anticoagulation. According to her, she was tested later for heparin and I found that she was not allergic. Her main issue right now is physical weakness and poor functional status and that is why she is here. She is denying any cardiac symptoms at this point. Allergies iodine [Iodine] Allergy (Severe, Verified 08/20/18 17:28) throat swelling diphenhydramine HCl [From Benadryl] Allergy (Verified 08/20/18 17:28) Anaphylaxis morphine Allergy (Verified 08/20/18 17:28) Unknown Sulfa (Sulfonamide Antibiotics) Allergy (Verified 08/20/18 17:28) Unknown sulfamethoxazole [From Bactrim] Allergy (Verified 08/20/18 17:28) Anaphylaxis trimethoprim [From Bactrim] Allergy (Verified 08/20/18 17:28) Anaphylaxis levofloxacin [From Levaquin] Adverse Reaction (Severe, Verified 08/20/18 17:28) vomiting metoclopramide [From Reglan] Adverse Reaction (Verified 08/20/18 17:40) Nausea/Vomiting promethazine [From Phenergan] Adverse Reaction (Verified 08/20/18 17:41) Nausea/Vomiting Narcotics Allergy (Severe, Uncoded 12/08/16 09:34) Anaphylaxis Home medications list reviewed: Yes Home Medications: Acetaminophen [Tylenol Extra Strength] 2 tab PO Q6HP PRN 08/22/18 Amiodarone HCl [Cordarone Tab] 200 mg PO DAILY 08/22/18 Aspirin Chewable [Aspirin Chewable*] 81 mg PO DAILY 08/22/18 Atorvastatin Calcium [Lipitor] 80 mg PO BEDTIME 08/22/18 Bumetanide [Bumex] 0.5 tab PO SEECOM 08/22/18 Clopidogrel Bisulfate [Plavix] 75 mg PO DAILY 08/22/18 Folic Acid 1 mg PO DAILY 08/22/18 LORazepam [Ativan] 0.5 mg PO DAILYPRN PRN 08/22/18 Metoprolol Tartrate [Lopressor*] 25 mg PO BID 08/22/18 Nitroglycerin [Nitrostat] 0.4 mg SL SEECOM 08/22/18 Pantoprazole [Protonix Tab] 40 mg PO DAILY 08/22/18 Sennosides/Docusate Sodium [Senna-S Tablet] 2 each PO BID 08/22/18 Thiamine HCl [Vitamin B-1] 100 mg PO DAILY 08/22/18 - Past Medical/Surgical History Diabetic: Yes -: Diabetes mellitus type 2 -: Hypertension -: Chronic renal disease -: Broken tani shoulders, toes tani feet, L elbow hx -: Cataract -: History DVT to the left lower extremity -: Hyperlipidemia -: CAD with multiple stents -: Peripheral vascular disease -: Carotid arterial disease -: History of osteomyelitis -: Severe cervical spine disease -: Cardiac Cath with 3 stents -: 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 She has 6 children - Family History Father Medical History: GI disease, Cancer Mother Medical History: GI disease, Stroke, Other (see notes) Notes: brain tumor Brother Medical History: Heart disease, Hypertension, Diabetes, Kidney disease Sister Medical History: Heart disease, Hypertension, GI disease - Social History Alcohol use: No CD- Drugs: No Caffeine use: No Place of Residence: Home Review of Systems 10-point ROS is otherwise unremarkable General: Weakness Neurological: Weakness Physical Examination Temp Pulse Resp BP Pulse Ox 97.4 F 83 16 128/58 L 97 08/22/18 19:01 08/23/18 05:06 08/22/18 19:01 08/23/18 05:06 08/22/18 19:01 General: In no apparent distress, Oriented x3, Cooperative HEENT: Atraumatic Neck: Supple Respiratory: Clear to auscultation bilaterally Cardiovascular: Regular rate/rhythm, Edema Gastrointestinal: Soft and benign, Non-distended Musculoskeletal: No clubbing, No contractures Integumentary: No rashes, No cyanosis Neurological: Normal speech Blood work reviewed in the chart. Cr 2.74 Imagings Data: EXAM DESCRIPTION: VAS - Abdomen Pelvis Scan - 01/31/2017 9:53 am CLINICAL HISTORY: I65.21, N18.3, I25.10 COMPARISON: None. FINDINGS: The bilateral kidneys are normal in size, the right measuring 9.1 x 4.7 x 4.0 cm and the left measuring 9.7 x 4.5 x 4.4 cm. Aortic velocity: 75 cm/second Right proximal renal artery: 77 cm/second Right mid renal artery: 97 cm/second Right distal renal artery: 43 cm/second Right renal arcuate artery resistive index: 0.4 Right renal artery / aorta ratio: 1.3. Left proximal renal artery: 71 cm/second Left mid renal artery: 58 cm/second Left distal renal artery: 55 cm/second Left renal arcuate artery resistive index: 1.0 Left renal artery/aorta ratio: 0.9 Normal waveforms demonstrated within the bilateral renal arteries. IMPRESSION: No evidence of hemodynamically significant stenosis within the bilateral renal arteries. Conclusions/Impression: A/ OTIS recently requiring dialysis has improved. CKD III but her new baseline may be CKD IV. Proteinuria. DM II with CKD and Polyneuropathy. HTN with CKD/ CHF. ROLDAN. Diastolic CHF, chronic. Anemia in chronic illness. GREGORY/ Secondary HyperPTH. CAD/ PAD. Moderate malnutrition. P/ Continue current POC and Medications. Agree with Epo. Continue abx. Titrate insulin as needed to improve BG control. Encourage nutrition. No NSAIDs. AM Labs. Daily weight. PT/ OT as tolerated. Thank you kindly for the consultation.
[2018-08-23] MEDS: MINOCYCLINE HCL 50 MG CAP PO SCH ×3 (08:00→20:31)
[2018-08-23] MEDS: PROMOD 30 ML DOSE PO SCH ×2 (08:00→20:00)
[2018-08-23] MEDS: BUMETANIDE 1 MG TABLET PO SCH ×2 (08:17→16:33)
[2018-08-23] MEDS: AMIODARONE HCL 200 MG TAB PO SCH (08:18)
[2018-08-23] MEDS: FOLIC ACID 1 MG TABLET PO SCH (08:18)
[2018-08-23] MEDS: CYANOCOBALAMIN 1,000 MCG TAB PO SCH (08:18)
[2018-08-23] MEDS: CLOPIDOGREL 75 MG TABLET PO SCH (08:18)
[2018-08-23] MEDS: APIXABAN 2.5 MG TABLET PO SCH ×2 (08:18→20:31)
[2018-08-23] MEDS: THIAMINE HCL 100 MG TABLET PO SCH (08:18)
--- NOTE | 2018-08-23 08:56 | FAST ---
ENCOUNTER DATE AND TIME: 08/23/2018 08:00 (CDT) NAME HENRIQUE ARECHIGA DATE OF : 1940 DATE OF ADMISSION: 08/20/2018 16:21 (CDT) PHONE: AGE: 78 SSN# [id number] GENDER: Female ENCOUNTER PHYSICIAN: Dr. Rober Keller M.D. ADMISSION DIAGNOSIS: - Cardiac 09 - Cardiac Disorders () NSTEMI. EATING: EATING - STEP 1: Does the patient require the assistance of a person or device, or need extra time when eating? No. EATING - SCORE: 7-IND GROOMING: Oral care Patient applied make-up Wash, rinse, and dry face Wash, rinse, and dry hands GROOMING - STEP 1: Does the patient require the assistance of a person or device, or need extra time when grooming? Yes. GROOMING - STEP 2: Does the patient require the assistance of a helper? Yes. GROOMING - STEP 3: How much assistance does the patient require from the helper? Incidental touching assistance from the helper while grooming GROOMING - SCORE: 4-MIN BATHING: Abdomen Buttocks Chest Left arm Left lower leg and foot Left upper leg Perineal area Right arm Right lower leg and foot Right upper leg BATHING - STEP 1: Does the patient require the assistance of a person or device, or need extra time when bathing? Yes. BATHING - STEP 2: Does the patient require the assistance of a helper? Yes. BATHING - STEP 3: How much assistance does the patient require from the helper? More than just incidental help BATHING - STEP 4: What percent of the body parts did the patient bathe WITHOUT the helper? Half or more of the body par ts BATHING - SCORE: 3-MOD DRESSING - UPPER BODY: Sweater (four steps) T-shirt/pullover shirt (four steps) ARTICLES SCORE Total number of steps: 8 DRESSING - UPPER BODY - STEP 1: Does the patient require help from a person or device, or need extra time when dressing above the mickey st? Yes. DRESSING - UPPER BODY - STEP 2: Does the patient require the assistance of a helper? Yes. DRESSING - UPPER BODY - STEP 3: Does the helper touch the patient while dressing? Yes. DRESSING - UPPER BODY - STEP 4: How many of the total steps does the patient complete on his/her own? 7 DRESSING - UPPER BODY - SCORE: 4-MIN DRESSING - LOWER BODY: Elastic waist pants (three steps) Sock - Left foot (one step) Sock - Right foot (one step) Tied or buckled shoe - Left foot (two steps) Tied or buckled shoe - Right foot (two steps) ARTICLES SCORE Total number of steps: 9 DRESSING - LOWER BODY - STEP 1: Does the patient require help from a person or device, or need extra time when dressing below the mickey st? Yes. DRESSING - LOWER BODY - STEP 2: Does the patient require the assistance of a helper? Yes. DRESSING - LOWER BODY - STEP 3: Does the helper touch the patient while dressing? Yes. DRESSING - LOWER BODY - STEP 4: How many of the total steps does the patient complete on his/her own? 5 DRESSING - LOWER BODY - SCORE: 3-MOD TOILETING: TOILETING - STEP 1: Does the patient require the assistance of a person or device, or need extra time with toileting? Yes . TOILETING - STEP 2: Does the patient require the assistance of a helper? No. TOILETING - SCORE: 6-FAHAD BLADDER MANAGEMENT: Activity did not occur on this shift BLADDER MANAGEMENT - SCORE: 7-IND BOWEL MANAGEMENT: Activity did not occur on this shift BOWEL MANAGEMENT - SCORE: 7-IND TRANSFERS: BED, CHAIR, WHEELCHAIR: Activity did not occur on this shift TRANSFERS: BED, CHAIR, WHEELCHAIR - SCORE: 0-UNK TRANSFERS: TOILET: TRANSFERS: TOILET - STEP 1: Does the patient require the assistance of a person or device, or need extra time with toilet transfe rs? Yes. TRANSFERS: TOILET - STEP 2: Does the patient require the assistance of a helper? No. Patient only requires an assistive device hernandez ch as a grab bar or special seat, OR s/he takes more than reasonable time to perform toilet transfers , OR there is a safety concern when s/he performs toilet transfers. TRANSFERS: TOILET - SCORE: 6-FAHAD TRANSFERS: SHOWER: TRANSFERS: SHOWER - STEP 1: Does the patient require the assistance of a person or device, or need extra time with shower transfe rs? Yes. TRANSFERS: SHOWER - STEP 2: Does the patient require the assistance of a helper? Yes. TRANSFERS: SHOWER - STEP 3: How much assistance does the patient require from the helper? Only supervision, cuing, coaxing, or he lp to set out transfer equipment or to lock brakes and/or lift foot rests TRANSFERS: SHOWER - SCORE: 5-SUP TRANSFERS: TUB: Activity did not occur on this shift TRANSFERS: TUB - SCORE: 0-UNK LOCOMOTION: WALK: Activity did not occur on this shift LOCOMOTION: WALK - SCORE: 0-UNK LOCOMOTION: WHEELCHAIR: Activity did not occur on this shift LOCOMOTION: WHEELCHAIR - SCORE: 0-UNK LOCOMOTION: STAIRS: Activity did not occur on this shift LOCOMOTION: STAIRS - SCORE: 0-UNK COMPREHENSION: COMPREHENSION: TYPE: Both COMPREHENSION - STEP 1: Does the patient require help from a person or device, or need extra time to understand complex and a bstract ideas (such as current events, finances, discharge planning, medical issues, relationships, e tc)? No. COMPREHENSION - STEP 2: Does the patient need extra time, require an assistive device (such as glasses for visual comprehensi on or a hearing aid for auditory comprehension) or does s/he have mild difficulty understanding compl ex and abstract information? Yes. COMPREHENSION - SCORE: 6-FAHAD EXPRESSION EXPRESSION: TYPE: Both EXPRESSION - STEP 1: Does the patient require help from a person or device, or need extra time expressing complex and abst ract ideas (such as current events, finances, discharge planning, medical issues, relationships, etc) ? No. EXPRESSION - STEP 2: Does the patient need extra time, require an assistive device (such as augmentive communication syste m or a communication board), OR does s/he have mild difficulty expressing complex and abstract ideas (including mild dysarthria or mild word-find problems)? Yes. EXPRESSION - SCORE: 6-FAHAD SOCIAL INTERACTION: SOCIAL INTERACTION - STEP 1: Does the patient require a helper to interact with others in social and therapeutic situations? No. SOCIAL INTERACTION - STEP 2: Does the patient need extra time in social situations, OR does s/he interact with staff, other patien ts, and family members ONLY in structured environments, OR does s/he require medication for social in teraction? No. SOCIAL INTERACTION - SCORE: 7-IND PROBLEM SOLVING: PROBLEM SOLVING - STEP 1: Does the patient need help from a person or device, or need extra time to solve complex problems such as managing a checking account or confronting interpersonal problems? No. PROBLEM SOLVING - STEP 2: Does the patient require extra time to make decisions or solve problems, OR does s/he have slight dif ficulty reading, initiating, or self-correcting in unfamiliar situations? Yes, patient needs extra ti me. PROBLEM SOLVING - SCORE: 6-FAHAD MEMORY: MEMORY - STEP 1: Does the patient need help from a person or device, or need extra time to remember frequently encount ered people, daily routines, and executing requests? No. MEMORY - STEP 2: Does the patient have slight difficulty recognizing frequently encountered people, daily routines, or executing requests without the need for repetition or using self-initiated or environmental cues to remember? Yes. MEMORY - SCORE: 6-FAHAD SIGNATURE PANEL: The following modified sections: Eating - Score, Grooming - Score, Bathing - Score, Dressing - Upper Body - Score, Dressing - Lower Body - Score, Toileting - Score, Transfers: Bed, Chair, Wheelchair - S core, Transfers: Toilet - Score, Transfers: Tub - Score, Transfers: Shower - Score, Comprehension - S core, Expression - Score, Social Interaction - Score, Problem Solving - Score, Memory - Score were [e lectronically] signed by Shannon Connor OT on MonAug 23 2018 08:54:49 T-0500 ([facility])
--- NOTE | 2018-08-23 09:24 | FAST ---
SHIFT START DATE/TIME: 08/23/2018 07:00 (CDT) SHIFT END DATE/TIME: 08/23/2018 19:00 (CDT) NAME HENRIQUE ARECHIGA DATE OF : 1940 DATE OF ADMISSION: 08/20/2018 16:21 (CDT) PHONE: AGE: 78 N# [id number] GENDER: Female ENCOUNTER PHYSICIAN: Dr. Rober Keller M.D. ADMISSION DIAGNOSIS: - Cardiac 09 - Cardiac Disorders () NSTEMI. EATING: EATING - STEP 1: Does the patient require the assistance of a person or device, or need extra time when eating? Yes. EATING - STEP 2: Does the patient require the assistance of a helper? No, patient only requires an assistive device, O R s/he takes more than reasonable time to eat, OR there is a safety concern, OR s/he requires modifie d food consistency EATING - SCORE: 6-FAHAD GROOMING: Comb/brush hair Oral care Wash, rinse, and dry face Wash, rinse, and dry hands GROOMING - STEP 1: Does the patient require the assistance of a person or device, or need extra time when grooming? Yes. GROOMING - STEP 2: Does the patient require the assistance of a helper? Yes. GROOMING - STEP 3: How much assistance does the patient require from the helper? Only prior equipment preparation/set up from the helper GROOMING - SCORE: 5-SUP BATHING: Activity did not occur on this shift BATHING - SCORE: 0-UNK DRESSING - UPPER BODY: Activity did not occur on this shift ARTICLES SCORE Total number of steps: 0 DRESSING - UPPER BODY - SCORE: 0-UNK DRESSING - LOWER BODY: Activity did not occur on this shift ARTICLES SCORE Total number of steps: 0 DRESSING - LOWER BODY - SCORE: 0-UNK TOILETING: TOILETING - STEP 1: Does the patient require the assistance of a person or device, or need extra time with toileting? Yes . TOILETING - STEP 2: Does the patient require the assistance of a helper? Yes. TOILETING - STEP 3: How much assistance does the patient require from the helper? Hands-on assistance from the helper TOILETING - STEP 4: Of the 3 tasks: 1) Adjusting clothing prior to use, 2) Cleansing of perineal area, 3) Adjusting clot jenniffer after use; How many tasks does the patient perform WITHOUT assistance of the helper? Three tasks with steadying assistance from the helper TOILETING - SCORE: 4-MIN BLADDER MANAGEMENT: BLADDER MANAGEMENT - STEP 1: Does the patient control the bladder completely and intentionally without equipment or devices or med ications, and is always continent? No. BLADDER MANAGEMENT - STEP 2: Does the patient require the assistance of a helper? No, patient requires and independently uses an a ssistive device, such as a urinal, bedpan, bedside commode, catheter, absorbent pad, or collecting de vice BLADDER MANAGEMENT - SCORE: 6-FAHAD BOWEL MANAGEMENT: Activity did not occur on this shift BOWEL MANAGEMENT - SCORE: 7-IND TRANSFERS: BED, CHAIR, WHEELCHAIR: TRANSFERS: BED, CHAIR, WHEELCHAIR - STEP 1: Does the patient require assistance of a person or device, or need extra time with bed, chair, or whe elchair transfers? Yes. TRANSFERS: BED, CHAIR, WHEELCHAIR - STEP 2: Does the patient require the assistance of a helper? Yes. TRANSFERS: BED, CHAIR, WHEELCHAIR - STEP 3: How much assistance does the patient require from the helper? Steadying/guiding assistance TRANSFERS: BED, CHAIR, WHEELCHAIR - SCORE: 4-MIN TRANSFERS: TOILET: TRANSFERS: TOILET - STEP 1: Does the patient require the assistance of a person or device, or need extra time with toilet transfe rs? Yes. TRANSFERS: TOILET - STEP 2: Does the patient require the assistance of a helper? Yes. TRANSFERS: TOILET - STEP 3: How much assistance does the patient require from the helper? Only supervision, cuing, coaxing, OR he lp to set out transfer equipment or to lock brakes and/or lift foot rests TRANSFERS: TOILET - SCORE: 5-SUP TRANSFERS: SHOWER: Activity did not occur on this shift TRANSFERS: SHOWER - SCORE: 0-UNK TRANSFERS: TUB: Activity did not occur on this shift TRANSFERS: TUB - SCORE: 0-UNK LOCOMOTION: WALK: Activity did not occur on this shift LOCOMOTION: WALK - SCORE: 0-UNK LOCOMOTION: WHEELCHAIR: Activity did not occur on this shift LOCOMOTION: WHEELCHAIR - SCORE: 0-UNK COMPREHENSION: COMPREHENSION: TYPE: Both COMPREHENSION - STEP 1: Does the patient require help from a person or device, or need extra time to understand complex and a bstract ideas (such as current events, finances, discharge planning, medical issues, relationships, e tc)? No. COMPREHENSION - STEP 2: Does the patient need extra time, require an assistive device (such as glasses for visual comprehensi on or a hearing aid for auditory comprehension) or does s/he have mild difficulty understanding compl ex and abstract information? Yes. COMPREHENSION - SCORE: 6-FAHAD EXPRESSION EXPRESSION: TYPE: Both EXPRESSION - STEP 1: Does the patient require help from a person or device, or need extra time expressing complex and abst ract ideas (such as current events, finances, discharge planning, medical issues, relationships, etc) ? No. EXPRESSION - STEP 2: Does the patient need extra time, require an assistive device (such as augmentive communication syste m or a communication board), OR does s/he have mild difficulty expressing complex and abstract ideas (including mild dysarthria or mild word-find problems)? Yes. EXPRESSION - SCORE: 6-FAHAD SOCIAL INTERACTION: SOCIAL INTERACTION - STEP 1: Does the patient require a helper to interact with others in social and therapeutic situations? No. SOCIAL INTERACTION - STEP 2: Does the patient need extra time in social situations, OR does s/he interact with staff, other patien ts, and family members ONLY in structured environments, OR does s/he require medication for social in teraction? Yes, patient needs extra time SOCIAL INTERACTION - SCORE: 6-FAHAD PROBLEM SOLVING: PROBLEM SOLVING - STEP 1: Does the patient need help from a person or device, or need extra time to solve complex problems such as managing a checking account or confronting interpersonal problems? No. PROBLEM SOLVING - STEP 2: Does the patient require extra time to make decisions or solve problems, OR does s/he have slight dif ficulty reading, initiating, or self-correcting in unfamiliar situations? Yes, patient needs extra ti me. PROBLEM SOLVING - SCORE: 6-FAHAD MEMORY: MEMORY - STEP 1: Does the patient need help from a person or device, or need extra time to remember frequently encount ered people, daily routines, and executing requests? No. MEMORY - STEP 2: Does the patient have slight difficulty recognizing frequently encountered people, daily routines, or executing requests without the need for repetition or using self-initiated or environmental cues to remember? Yes. MEMORY - SCORE: 6-FAHAD SIGNATURE PANEL: The following modified sections: Eating - Score, Grooming - Score, Bathing - Score, Dressing - Upper Body - Score, Dressing - Lower Body - Score, Toileting - Score, Bladder Management - Score, Bowel Man agement - Score, Transfers: Bed, Chair, Wheelchair - Score, Transfers: Toilet - Score, Transfers: Dorothea wer - Score, Transfers: Tub - Score, Locomotion: Walk - Score, Locomotion: Wheelchair - Score, Compre hension - Score, Expression - Score, Social Interaction - Score, Problem Solving - Score, Memory - Sc ore were [electronically] signed by Hector Macias on MonAug 23 2018 09:23:18 GMT-0500 (Central Daylight Time)
[2018-08-23] MEDS: ACETAMINOPHEN 500 MG TAB PO PRN (10:35)
[2018-08-23] MEDS: ONDANSETRON 4 MG (ODT) TAB PO PRN ×2 (10:36→15:57)
[2018-08-23] MEDS: DOCUSATE NA/SENNA CONC 1 TAB PO SCH (20:30)
[2018-08-23] MEDS: ATORVASTATIN 80 MG TAB PO SCH (20:31)
[2018-08-23] MEDS: CLOTRIMAZOLE 1% VAG SCH (20:31)
--- NOTE | 2018-08-24 02:58 | FAST ---
SHIFT START DATE/TIME: 08/23/2018 19:00 (CDT) SHIFT END DATE/TIME: 08/24/2018 07:00 (CDT) NAME HENRIQUE ARECHIGA DATE OF : 1940 DATE OF ADMISSION: 08/20/2018 16:21 (CDT) PHONE: AGE: 78 N# [id number] GENDER: Female ENCOUNTER PHYSICIAN: Dr. Rober Keller M.D. ADMISSION DIAGNOSIS: - Cardiac 09 - Cardiac Disorders () NSTEMI. EATING: Activity did not occur on this shift EATING - SCORE: 0-UNK GROOMING: Wash, rinse, and dry hands GROOMING - STEP 1: Does the patient require the assistance of a person or device, or need extra time when grooming? Yes. GROOMING - STEP 2: Does the patient require the assistance of a helper? Yes. GROOMING - STEP 3: How much assistance does the patient require from the helper? Cuing, coaxing, instructions, or encour agement for completion of grooming GROOMING - SCORE: 5-SUP BATHING: Activity did not occur on this shift BATHING - SCORE: 0-UNK DRESSING - UPPER BODY: Patient is not dressing in public clothing ARTICLES SCORE Total number of steps: 0 DRESSING - UPPER BODY - SCORE: 0-UNK DRESSING - LOWER BODY: Patient is not dressing in public clothing ARTICLES SCORE Total number of steps: 0 DRESSING - LOWER BODY - SCORE: 0-UNK TOILETING: TOILETING - STEP 1: Does the patient require the assistance of a person or device, or need extra time with toileting? Yes . TOILETING - STEP 2: Does the patient require the assistance of a helper? Yes. TOILETING - STEP 3: How much assistance does the patient require from the helper? Only supervision TOILETING - SCORE: 5-SUP BLADDER MANAGEMENT: BLADDER MANAGEMENT - STEP 1: Does the patient control the bladder completely and intentionally without equipment or devices or med ications, and is always continent? No. BLADDER MANAGEMENT - STEP 2: Does the patient require the assistance of a helper? Yes. BLADDER MANAGEMENT - STEP 3: How much assistance does the patient require from the helper? Only supervision, stand-by, cuing, or c oaxing BLADDER MANAGEMENT - SCORE: 5-SUP BOWEL MANAGEMENT: Activity did not occur on this shift BOWEL MANAGEMENT - SCORE: 7-IND TRANSFERS: BED, CHAIR, WHEELCHAIR: TRANSFERS: BED, CHAIR, WHEELCHAIR - STEP 1: Does the patient require assistance of a person or device, or need extra time with bed, chair, or whe elchair transfers? Yes. TRANSFERS: BED, CHAIR, WHEELCHAIR - STEP 2: Does the patient require the assistance of a helper? Yes. TRANSFERS: BED, CHAIR, WHEELCHAIR - STEP 3: How much assistance does the patient require from the helper? Only supervision TRANSFERS: BED, CHAIR, WHEELCHAIR - SCORE: 5-SUP TRANSFERS: TOILET: TRANSFERS: TOILET - STEP 1: Does the patient require the assistance of a person or device, or need extra time with toilet transfe rs? Yes. TRANSFERS: TOILET - STEP 2: Does the patient require the assistance of a helper? Yes. TRANSFERS: TOILET - STEP 3: How much assistance does the patient require from the helper? Only supervision, cuing, coaxing, OR he lp to set out transfer equipment or to lock brakes and/or lift foot rests TRANSFERS: TOILET - SCORE: 5-SUP TRANSFERS: SHOWER: Activity did not occur on this shift TRANSFERS: SHOWER - SCORE: 0-UNK TRANSFERS: TUB: Activity did not occur on this shift TRANSFERS: TUB - SCORE: 0-UNK LOCOMOTION: WALK: Activity did not occur on this shift LOCOMOTION: WALK - SCORE: 0-UNK LOCOMOTION: WHEELCHAIR: Activity did not occur on this shift LOCOMOTION: WHEELCHAIR - SCORE: 0-UNK COMPREHENSION: COMPREHENSION: TYPE: Both COMPREHENSION - STEP 1: Does the patient require help from a person or device, or need extra time to understand complex and a bstract ideas (such as current events, finances, discharge planning, medical issues, relationships, e tc)? No. COMPREHENSION - STEP 2: Does the patient need extra time, require an assistive device (such as glasses for visual comprehensi on or a hearing aid for auditory comprehension) or does s/he have mild difficulty understanding compl ex and abstract information? Yes. COMPREHENSION - SCORE: 6-FAHAD EXPRESSION EXPRESSION: TYPE: Both EXPRESSION - STEP 1: Does the patient require help from a person or device, or need extra time expressing complex and abst ract ideas (such as current events, finances, discharge planning, medical issues, relationships, etc) ? No. EXPRESSION - STEP 2: Does the patient need extra time, require an assistive device (such as augmentive communication syste m or a communication board), OR does s/he have mild difficulty expressing complex and abstract ideas (including mild dysarthria or mild word-find problems)? No. EXPRESSION - SCORE: 7-IND SOCIAL INTERACTION: SOCIAL INTERACTION - STEP 1: Does the patient require a helper to interact with others in social and therapeutic situations? No. SOCIAL INTERACTION - STEP 2: Does the patient need extra time in social situations, OR does s/he interact with staff, other patien ts, and family members ONLY in structured environments, OR does s/he require medication for social in teraction? No. SOCIAL INTERACTION - SCORE: 7-IND PROBLEM SOLVING: PROBLEM SOLVING - STEP 1: Does the patient need help from a person or device, or need extra time to solve complex problems such as managing a checking account or confronting interpersonal problems? No. PROBLEM SOLVING - STEP 2: Does the patient require extra time to make decisions or solve problems, OR does s/he have slight dif ficulty reading, initiating, or self-correcting in unfamiliar situations? No. PROBLEM SOLVING - SCORE: 7-IND MEMORY: MEMORY - STEP 1: Does the patient need help from a person or device, or need extra time to remember frequently encount ered people, daily routines, and executing requests? No. MEMORY - STEP 2: Does the patient have slight difficulty recognizing frequently encountered people, daily routines, or executing requests without the need for repetition or using self-initiated or environmental cues to remember? No. MEMORY - SCORE: 7-IND SIGNATURE PANEL: The following modified sections: Eating - Score, Grooming - Score, Bathing - Score, Dressing - Upper Body - Score, Dressing - Lower Body - Score, Toileting - Score, Bladder Management - Score, Bowel Man agement - Score, Transfers: Bed, Chair, Wheelchair - Score, Transfers: Toilet - Score, Transfers: Dorothea wer - Score, Transfers: Tub - Score, Locomotion: Walk - Score, Locomotion: Wheelchair - Score, Compre hension - Score, Expression - Score, Social Interaction - Score, Problem Solving - Score, Memory - Sc ore were [electronically] signed by Yessenia Rae RN on MonAug 24 2018 02:57:34 T-0500 ([facility] Time)
[2018-08-24] MEDS: METOPROLOL TAR 25 MG TAB PO SCH ×2 (05:09→17:00)
[2018-08-24 06:12] LABS: Basophils % 0.7 % (0-1.3); Eosinophils % 5.2 % (0-4.4); Hematocrit 30.4 % (36.0-45.0); Lymphocytes % 24.4 % (15.3-44.8); MPV 9.1 fL (7.6-11.3); Monocytes % 16.8 % (3.3-12.3); RBC Red Blood Cell Count 3.07 M/uL (3.86-4.86)
[2018-08-24 06:33] LABS: Albumin 2.9 g/dL (3.4-5.0); Potassium 4.4 mmol/L (3.5-5.1); Prealbumin 14.5 mg/dL (20-40)
[2018-08-24] MEDS: INSULIN -REGULAR HUMAN 50 UNIT/0.5 ML ML SQ SCH ×4 (07:16→21:00)
[2018-08-24 07:29] LABS: Anisocytosis 1+; Blood Morphology Comment NOTED (NOT SEEN); Platelet Estimate ADEQ
[2018-08-24] MEDS: SODIUM CHLORIDE 0.9% 10ML INJ IV SCH ×2 (08:00→20:00)
[2018-08-24] MEDS: BUMETANIDE 1 MG TABLET PO SCH ×2 (08:00→16:57)
[2018-08-24] MEDS: PROMOD 30 ML DOSE PO SCH ×3 (08:00→21:43)
[2018-08-24] MEDS: MINOCYCLINE HCL 50 MG CAP PO SCH ×2 (08:27→21:42)
[2018-08-24] MEDS: PANTOPRAZOLE 40MG TABLET PO SCH (08:28)
[2018-08-24] MEDS: APIXABAN 2.5 MG TABLET PO SCH ×2 (08:28→21:42)
[2018-08-24] MEDS: FOLIC ACID 1 MG TABLET PO SCH (08:28)
[2018-08-24] MEDS: CLOPIDOGREL 75 MG TABLET PO SCH (08:28)
[2018-08-24] MEDS: CYANOCOBALAMIN 1,000 MCG TAB PO SCH (08:28)
[2018-08-24] MEDS: THIAMINE HCL 100 MG TABLET PO SCH (08:29)
[2018-08-24] MEDS: AMIODARONE HCL 200 MG TAB PO SCH (09:00)
--- NOTE | 2018-08-24 10:19 | P.RH.PN ---
Estimated Length of Stay: 14 Expected Discharge Date: 09/02/18 Discharge Disposition Plan: Home Family Support: Yes Shelter Goal: Mobility, Transfers, Self Care Vital Signs: Last Vital Signs Temp 96.8 F 08/24/18 07:02 Pulse 74 08/24/18 08:00 Resp 16 08/24/18 07:02 BP 119/59 L 08/24/18 08:00 Pulse Ox 99 08/24/18 07:02 Laboratory: Laboratory Last Values WBC 4.1 K/uL (4.3-10.9) L D 08/24/18 05:40 RBC 3.07 M/uL (3.86-4.86) L 08/24/18 05:40 Hgb 10.0 g/dL (12.0-15.0) L 08/24/18 05:40 Hct 30.4 % (36.0-45.0) L 08/24/18 05:40 MCV 98.9 fL (80-100) 08/24/18 05:40 MCH 32.4 pg (27.0-35.0) 08/24/18 05:40 MCHC 32.8 g/dL (32.0-36.0) 08/24/18 05:40 RDW 18.7 % (12.1-15.2) H 08/24/18 05:40 Plt Count 232 K/uL (152-406) 08/24/18 05:40 MPV 9.1 fL (7.6-11.3) 08/24/18 05:40 Neutrophils % 52.9 % (41.7-73.7) 08/24/18 05:40 Lymphocytes % 24.4 % (15.3-44.8) 08/24/18 05:40 Monocytes % 16.8 % (3.3-12.3) H 08/24/18 05:40 Eosinophils % 5.2 % (0-4.4) H 08/24/18 05:40 Basophils % 0.7 % (0-1.3) 08/24/18 05:40 Absolute Neutrophils 2.2 K/uL (1.8-8.0) 08/24/18 05:40 Segmented Neutrophils 55 % (40-80) 08/24/18 05:40 Absolute Lymphocytes 1.0 K/uL (0.7-4.9) 08/24/18 05:40 Lymphocytes 31 % (15-42) 08/24/18 05:40 Monocytes 11 % (0-10) H 08/24/18 05:40 Absolute Monocytes 0.7 K/uL (0.1-1.3) 08/24/18 05:40 Eosinophils 3 % (0-3) 08/24/18 05:40 Absolute Eosinophils 0.2 K/uL (0-0.5) 08/24/18 05:40 Absolute Basophils 0.0 K/uL (0-0.5) 08/24/18 05:40 Anisocytosis 1+ 08/24/18 05:40 Morphology Comment Noted (NOT SEEN) 08/24/18 05:40 Sodium 139 mmol/L (136-145) 08/24/18 05:40 Potassium 4.4 mmol/L (3.5-5.1) 08/24/18 05:40 Chloride 102 mmol/L (98-107) 08/24/18 05:40 Carbon Dioxide 30 mmol/L (21-32) 08/24/18 05:40 BUN 68 mg/dL (7-18) H 08/24/18 05:40 Creatinine 2.83 mg/dL (0.55-1.3) H 08/24/18 05:40 Estimated GFR 16 mL/min (=/>90) L 08/24/18 05:40 Glucose 121 mg/dL (74-106) H 08/24/18 05:40 POC Glucose 142 mg/dl (65-120) H 08/24/18 07:13 Calcium 8.4 mg/dL (8.5-10.1) L 08/24/18 05:40 Magnesium 2.0 mg/dL (1.8-2.4) 08/21/18 05:41 Albumin 2.9 g/dL (3.4-5.0) L 08/24/18 05:40 Prealbumin 14.5 mg/dL (20-40) L 08/24/18 05:40 Weight: 171 lb 9.6 oz Wound Present: Yes Closed Surgical Incision Present: No Negative Pressure Wound Therapy Present: No Physician Update: She had low blood pressure with mild dizziness on standing. She is poorly hydrated. She is stanby assistance and is debilited with diffuse mild weakness. Labs have been reviewed and are stable. She is ambulating 150' and transferring with standby assistance. She gets fatigued easily. Medical Issues: DVT Prophylaxis- Eliquis 2.5mg BID PO Functional Improvement: Patient has met all short-term goals at this time, w/ the exception of distance traveled w/ gait tx. Patient shows good safety awareness, however requires VC for motivation to continue w/ therapy. Functional Improvement Occupational Therapy: Patient requires supervision with BADL at this time, and continues to require min assist with UB dressing. Patient continues to benefit from further OT to address goals as set in POC before a safe d/c home. 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 Please see the Rehabilitation Signature page for all necessary signatures.
--- NOTE | 2018-08-24 12:51 | FAST ---
ENCOUNTER DATE AND TIME: 08/24/2018 08:00 (CDT) NAME HENRIQUE ARECHIGA DATE OF : 1940 DATE OF ADMISSION: 08/20/2018 16:21 (CDT) PHONE: AGE: 78 SSN# [id number] GENDER: Female ENCOUNTER PHYSICIAN: Dr. Rober Keller M.D. ADMISSION DIAGNOSIS: - Cardiac 09 - Cardiac Disorders () NSTEMI. EATING: Activity did not occur on this shift EATING - SCORE: 0-UNK GROOMING: Wash, rinse, and dry hands GROOMING - STEP 1: Does the patient require the assistance of a person or device, or need extra time when grooming? No. GROOMING - SCORE: 7-IND BATHING: Activity did not occur on this shift BATHING - SCORE: 0-UNK DRESSING - UPPER BODY: Activity did not occur on this shift ARTICLES SCORE Total number of steps: 0 DRESSING - UPPER BODY - SCORE: 0-UNK DRESSING - LOWER BODY: Sock - Left foot (one step) Sock - Right foot (one step) Tied or buckled shoe - Left foot (two steps) Tied or buckled shoe - Right foot (two steps) ARTICLES SCORE Total number of steps: 6 DRESSING - LOWER BODY - STEP 1: Does the patient require help from a person or device, or need extra time when dressing below the mickey st? Yes. DRESSING - LOWER BODY - STEP 2: Does the patient require the assistance of a helper? Yes. DRESSING - LOWER BODY - STEP 3: Does the helper touch the patient while dressing? Yes. DRESSING - LOWER BODY - STEP 4: How many of the total steps does the patient complete on his/her own? 1 DRESSING - LOWER BODY - STEP 5: Does patient require total assistance for dressing below the waist such as the helper holding clothin g and performing basically all the activities? No. DRESSING - LOWER BODY - SCORE: 2-MAX TOILETING: TOILETING - STEP 1: Does the patient require the assistance of a person or device, or need extra time with toileting? Yes . TOILETING - STEP 2: Does the patient require the assistance of a helper? No. TOILETING - SCORE: 6-FAHAD BLADDER MANAGEMENT: Activity did not occur on this shift BLADDER MANAGEMENT - SCORE: 7-IND BOWEL MANAGEMENT: Activity did not occur on this shift BOWEL MANAGEMENT - SCORE: 7-IND TRANSFERS: BED, CHAIR, WHEELCHAIR: TRANSFERS: BED, CHAIR, WHEELCHAIR - STEP 1: Does the patient require assistance of a person or device, or need extra time with bed, chair, or whe elchair transfers? Yes. TRANSFERS: BED, CHAIR, WHEELCHAIR - STEP 2: Does the patient require the assistance of a helper? Yes. TRANSFERS: BED, CHAIR, WHEELCHAIR - STEP 3: How much assistance does the patient require from the helper? Only supervision TRANSFERS: BED, CHAIR, WHEELCHAIR - SCORE: 5-SUP TRANSFERS: TOILET: TRANSFERS: TOILET - STEP 1: Does the patient require the assistance of a person or device, or need extra time with toilet transfe rs? Yes. TRANSFERS: TOILET - STEP 2: Does the patient require the assistance of a helper? Yes. TRANSFERS: TOILET - STEP 3: How much assistance does the patient require from the helper? Only supervision, cuing, coaxing, OR he lp to set out transfer equipment or to lock brakes and/or lift foot rests TRANSFERS: TOILET - SCORE: 5-SUP TRANSFERS: SHOWER: Activity did not occur on this shift TRANSFERS: SHOWER - SCORE: 0-UNK TRANSFERS: TUB: Activity did not occur on this shift TRANSFERS: TUB - SCORE: 0-UNK LOCOMOTION: WALK: Activity did not occur on this shift LOCOMOTION: WALK - SCORE: 0-UNK LOCOMOTION: WHEELCHAIR: Activity did not occur on this shift LOCOMOTION: WHEELCHAIR - SCORE: 0-UNK LOCOMOTION: STAIRS: Activity did not occur on this shift LOCOMOTION: STAIRS - SCORE: 0-UNK COMPREHENSION: COMPREHENSION: TYPE: Both COMPREHENSION - STEP 1: Does the patient require help from a person or device, or need extra time to understand complex and a bstract ideas (such as current events, finances, discharge planning, medical issues, relationships, e tc)? Yes. COMPREHENSION - STEP 2: Does the patient require help to understand questions or statements about basic needs or ideas (such as hunger, thirst, sleep, safety, daily schedule, room location, or discomfort) half or more of the t letty? No. COMPREHENSION - STEP 3: How often does the patient need help to understand directions and conversation about basic needs? 10% - 24% of the time COMPREHENSION - SCORE: 4-MIN EXPRESSION EXPRESSION: TYPE: Both EXPRESSION - STEP 1: Does the patient require help from a person or device, or need extra time expressing complex and abst ract ideas (such as current events, finances, discharge planning, medical issues, relationships, etc) ? Yes. EXPRESSION - STEP 2: Does the patient require help to express basic necessities or ideas (such as hunger, thirst, sleep, s afety, daily schedule, room location, or discomfort) half or more of the time? No. EXPRESSION - STEP 3: How often does the patient need help to express directions and conversation about basic needs? Less t sanches 10% of the time EXPRESSION - SCORE: 5-SUP SOCIAL INTERACTION: SOCIAL INTERACTION - SCORE: 0-UNK PROBLEM SOLVING: PROBLEM SOLVING - STEP 1: Does the patient need help from a person or device, or need extra time to solve complex problems such as managing a checking account or confronting interpersonal problems? Yes. PROBLEM SOLVING - STEP 2: Does the patient solve basic routine problems half or more of the time? Yes. PROBLEM SOLVING - STEP 3: How often does the patient need help to solve basic routine problems? 10%-24% of the time PROBLEM SOLVING - SCORE: 4-MIN MEMORY: MEMORY - STEP 1: Does the patient need help from a person or device, or need extra time to remember frequently encount ered people, daily routines, and executing requests? Yes. MEMORY - STEP 2: How often does the patient need help to remember frequently encountered people, daily routines, and e xecuting requests? 10% - 24% of the time MEMORY - SCORE: 4-MIN SIGNATURE PANEL: The following modified sections: Eating - Score, Grooming - Score, Bathing - Score, Dressing - Upper Body - Score, Dressing - Lower Body - Score, Toileting - Score, Transfers: Bed, Chair, Wheelchair - S core, Transfers: Toilet - Score, Transfers: Shower - Score, Transfers: Tub - Score, Comprehension - S core, Expression - Score, Social Interaction - Score, Problem Solving - Score, Memory - Score were [e lectronically] signed by Keysha Hull OT on MonAug 24 2018 12:50:27 T-0500 ([place] Time)
--- NOTE | 2018-08-24 13:22 | FAST ---
SHIFT START DATE/TIME: 08/24/2018 07:00 (CDT) SHIFT END DATE/TIME: 08/24/2018 19:00 (CDT) NAME HENRIQUE ARECHIGA DATE OF : 1940 DATE OF ADMISSION: 08/20/2018 16:21 (CDT) PHONE: AGE: 78 N# [id number] GENDER: Female ENCOUNTER PHYSICIAN: Dr. Rober Keller M.D. ADMISSION DIAGNOSIS: - Cardiac 09 - Cardiac Disorders () NSTEMI. EATING: EATING - STEP 1: Does the patient require the assistance of a person or device, or need extra time when eating? Yes. EATING - STEP 2: Does the patient require the assistance of a helper? No, patient only requires an assistive device, O R s/he takes more than reasonable time to eat, OR there is a safety concern, OR s/he requires modifie d food consistency EATING - SCORE: 6-FAHAD GROOMING: Comb/brush hair Oral care Wash, rinse, and dry face Wash, rinse, and dry hands GROOMING - STEP 1: Does the patient require the assistance of a person or device, or need extra time when grooming? Yes. GROOMING - STEP 2: Does the patient require the assistance of a helper? Yes. GROOMING - STEP 3: How much assistance does the patient require from the helper? Only prior equipment preparation/set up from the helper GROOMING - SCORE: 5-SUP BATHING: Activity did not occur on this shift BATHING - SCORE: 0-UNK DRESSING - UPPER BODY: Bra (three steps) T-shirt/pullover shirt (four steps) ARTICLES SCORE Total number of steps: 7 DRESSING - UPPER BODY - STEP 1: Does the patient require help from a person or device, or need extra time when dressing above the mickey st? Yes. DRESSING - UPPER BODY - STEP 2: Does the patient require the assistance of a helper? Yes. DRESSING - UPPER BODY - STEP 3: Does the helper touch the patient while dressing? Yes. DRESSING - UPPER BODY - STEP 4: How many of the total steps does the patient complete on his/her own? 7 DRESSING - UPPER BODY - SCORE: 4-MIN DRESSING - LOWER BODY: Elastic waist pants (three steps) Underwear (three steps) ARTICLES SCORE Total number of steps: 6 DRESSING - LOWER BODY - STEP 1: Does the patient require help from a person or device, or need extra time when dressing below the mickey st? Yes. DRESSING - LOWER BODY - STEP 2: Does the patient require the assistance of a helper? Yes. DRESSING - LOWER BODY - STEP 3: Does the helper touch the patient while dressing? Yes. DRESSING - LOWER BODY - STEP 4: How many of the total steps does the patient complete on his/her own? 5 DRESSING - LOWER BODY - SCORE: 4-MIN TOILETING: TOILETING - STEP 1: Does the patient require the assistance of a person or device, or need extra time with toileting? Yes . TOILETING - STEP 2: Does the patient require the assistance of a helper? No. TOILETING - SCORE: 6-FAHAD BLADDER MANAGEMENT: BLADDER MANAGEMENT - STEP 1: Does the patient control the bladder completely and intentionally without equipment or devices or med ications, and is always continent? No. BLADDER MANAGEMENT - STEP 2: Does the patient require the assistance of a helper? No, patient only requires extra time BLADDER MANAGEMENT - SCORE: 6-FAHAD BLADDER MANAGEMENT - FREQUENCY OF ACCIDENTS: BLADDER MANAGEMENT(FA) - STEP 1: How many accidents has the patient had during the current shift? 0 BOWEL MANAGEMENT: Activity did not occur on this shift BOWEL MANAGEMENT - SCORE: 7-IND BOWEL MANAGEMENT - FREQUENCY OF ACCIDENTS: BOWEL MANAGEMENT(FA) - STEP 1: How many accidents has the patient had during the current shift? 0 TRANSFERS: BED, CHAIR, WHEELCHAIR: TRANSFERS: BED, CHAIR, WHEELCHAIR - STEP 1: Does the patient require assistance of a person or device, or need extra time with bed, chair, or whe elchair transfers? Yes. TRANSFERS: BED, CHAIR, WHEELCHAIR - STEP 2: Does the patient require the assistance of a helper? Yes. TRANSFERS: BED, CHAIR, WHEELCHAIR - STEP 3: How much assistance does the patient require from the helper? Steadying/guiding assistance TRANSFERS: BED, CHAIR, WHEELCHAIR - SCORE: 4-MIN TRANSFERS: TOILET: TRANSFERS: TOILET - STEP 1: Does the patient require the assistance of a person or device, or need extra time with toilet transfe rs? Yes. TRANSFERS: TOILET - STEP 2: Does the patient require the assistance of a helper? Yes. TRANSFERS: TOILET - STEP 3: How much assistance does the patient require from the helper? Only supervision, cuing, coaxing, OR he lp to set out transfer equipment or to lock brakes and/or lift foot rests TRANSFERS: TOILET - SCORE: 5-SUP TRANSFERS: SHOWER: Activity did not occur on this shift TRANSFERS: SHOWER - SCORE: 0-UNK TRANSFERS: TUB: Activity did not occur on this shift TRANSFERS: TUB - SCORE: 0-UNK LOCOMOTION: WALK: Activity did not occur on this shift LOCOMOTION: WALK - SCORE: 0-UNK LOCOMOTION: WHEELCHAIR: Activity did not occur on this shift LOCOMOTION: WHEELCHAIR - SCORE: 0-UNK COMPREHENSION: COMPREHENSION: TYPE: Both COMPREHENSION - STEP 1: Does the patient require help from a person or device, or need extra time to understand complex and a bstract ideas (such as current events, finances, discharge planning, medical issues, relationships, e tc)? No. COMPREHENSION - STEP 2: Does the patient need extra time, require an assistive device (such as glasses for visual comprehensi on or a hearing aid for auditory comprehension) or does s/he have mild difficulty understanding compl ex and abstract information? Yes. COMPREHENSION - SCORE: 6-FAHAD EXPRESSION EXPRESSION: TYPE: Both EXPRESSION - STEP 1: Does the patient require help from a person or device, or need extra time expressing complex and abst ract ideas (such as current events, finances, discharge planning, medical issues, relationships, etc) ? No. EXPRESSION - STEP 2: Does the patient need extra time, require an assistive device (such as augmentive communication syste m or a communication board), OR does s/he have mild difficulty expressing complex and abstract ideas (including mild dysarthria or mild word-find problems)? Yes. EXPRESSION - SCORE: 6-FAHAD SOCIAL INTERACTION: SOCIAL INTERACTION - STEP 1: Does the patient require a helper to interact with others in social and therapeutic situations? No. SOCIAL INTERACTION - STEP 2: Does the patient need extra time in social situations, OR does s/he interact with staff, other patien ts, and family members ONLY in structured environments, OR does s/he require medication for social in teraction? No. SOCIAL INTERACTION - SCORE: 7-IND PROBLEM SOLVING: PROBLEM SOLVING - STEP 1: Does the patient need help from a person or device, or need extra time to solve complex problems such as managing a checking account or confronting interpersonal problems? No. PROBLEM SOLVING - STEP 2: Does the patient require extra time to make decisions or solve problems, OR does s/he have slight dif ficulty reading, initiating, or self-correcting in unfamiliar situations? Yes, patient needs extra ti me. PROBLEM SOLVING - SCORE: 6-FAHAD MEMORY: MEMORY - STEP 1: Does the patient need help from a person or device, or need extra time to remember frequently encount ered people, daily routines, and executing requests? No. MEMORY - STEP 2: Does the patient have slight difficulty recognizing frequently encountered people, daily routines, or executing requests without the need for repetition or using self-initiated or environmental cues to remember? Yes. MEMORY - SCORE: 6-FAHAD SIGNATURE PANEL: The following modified sections: Eating - Score, Grooming - Score, Bathing - Score, Dressing - Upper Body - Score, Dressing - Lower Body - Score, Toileting - Score, Bladder Management - Score, Bowel Man agement - Score, Transfers: Bed, Chair, Wheelchair - Score, Transfers: Toilet - Score, Transfers: Dorothea wer - Score, Transfers: Tub - Score, Locomotion: Walk - Score, Locomotion: Wheelchair - Score, Compre hension - Score, Expression - Score, Social Interaction - Score, Problem Solving - Score, Memory - Sc ore were [electronically] signed by Krystal Maya C.N.A. on MonAug 24 2018 13:21:14 T-0500 (Centra l Daylight Time)
[2018-08-24] MEDS: ATORVASTATIN 80 MG TAB PO SCH (21:41)
[2018-08-24] MEDS: DOCUSATE NA/SENNA CONC 1 TAB PO SCH (21:42)
[2018-08-24] MEDS: CLOTRIMAZOLE 1% VAG SCH (21:44)
[2018-08-25] MEDS: METOPROLOL TAR 25 MG TAB PO SCH ×2 (05:15→17:11)
[2018-08-25] MEDS: INSULIN -REGULAR HUMAN 50 UNIT/0.5 ML ML SQ SCH ×4 (07:30→20:27)
[2018-08-25] MEDS: PROMOD 30 ML DOSE PO SCH ×2 (08:00→20:00)
[2018-08-25] MEDS: SODIUM CHLORIDE 0.9% 10ML INJ IV SCH (08:00)
--- NOTE | 2018-08-25 08:47 | P.PN ---
Date of Service: 08/24/18 Vital Signs Temp Pulse Resp BP Pulse Ox 97.6 F 83 16 117/48 L 94 08/25/18 06:48 08/25/18 06:48 08/25/18 06:48 08/25/18 06:48 08/25/18 06:48 Medications Acetaminophen (Tylenol -Extra Strength) 1,000 mg PO Q6H PRN PRN Reason: Pain scale 2-4 (Mild) Stop: 09/19/18 17:01 Last Admin: 08/23/18 10:35 Dose: 1,000 mg Amiodarone HCl (Cordarone Tab) 200 mg PO DAILY JL Stop: 09/20/18 08:01 Last Admin: 08/24/18 09:00 Dose: 200 mg Apixaban (Eliquis) 2.5 mg PO BID JL Stop: 09/22/18 08:01 Last Admin: 08/24/18 21:42 Dose: 2.5 mg Atorvastatin Calcium (Lipitor) 80 mg PO BEDTIME JL Stop: 09/19/18 21:01 Last Admin: 08/24/18 21:41 Dose: 80 mg Bumetanide (Bumex) 0.5 mg PO BID@0800,1700 JL Stop: 09/20/18 08:01 Last Admin: 08/24/18 16:57 Dose: 0.5 mg Calcitriol (Rocaltrol) 0.5 mcg PO DAILY JL Stop: 09/25/18 08:01 Cholecalciferol (Vitamin D 5,000 Iu Cap) 5,000 unit PO DAILY JL Stop: 09/25/18 08:01 Clopidogrel Bisulfate (Plavix) 75 mg PO DAILY JL Stop: 09/20/18 08:01 Last Admin: 08/24/18 08:28 Dose: 75 mg Clotrimazole (Gyne-Lotrimin 1% Vaginal Cream) 1 appl VAG BEDTIME JL Stop: 08/29/18 21:01 Last Admin: 08/24/18 21:44 Dose: 1 appl Cyanocobalamin (Vitamin B-12) 1,000 mcg PO DAILY JL Stop: 09/20/18 10:01 Last Admin: 08/24/18 08:28 Dose: 1,000 mcg Dextrose (Dextrose 50% Syringe) 12.5 gm IV PRN PRN; Protocol PRN Reason: HYPOGLYCEMIA Stop: 09/19/18 17:20 Epoetin Monty (Epogen) 10,000 unit SQ MO,FR [facility] Stop: 09/26/18 17:01 Folic Acid (Folic Acid) 1 mg PO DAILY [facility] Stop: 09/20/18 08:01 Last Admin: 08/24/18 08:28 Dose: 1 mg Glucagon (Glucagen) 1 mg IM 1X PRN; Protocol PRN Reason: HYPOGLYCEMIA Stop: 09/19/18 17:20 Insulin Human Regular (Novolin -R) 0 unit SQ ACHS [facility]; Protocol Stop: 09/19/18 21:01 Last Admin: 08/24/18 21:00 Dose: Not Given Ipratropium [place] (Atrovent Neb) 0.5 mg NEB Q6HP PRN PRN Reason: SHORTNESS OF BREATH Stop: 09/20/18 09:48 Lorazepam (Ativan) 0.5 mg PO DAILY PRN PRN Reason: ANXIETY Stop: 09/20/18 08:01 Metoprolol Tartrate (Lopressor) 25 mg PO BID 6AM 6PM [facility] Stop: 09/19/18 18:01 Last Admin: 08/25/18 05:15 Dose: 25 mg Minocycline HCl (Minocylcine Hcl) 100 mg PO Q12H [facility] Stop: 09/19/18 20:01 Last Admin: 08/24/18 21:42 Dose: 100 mg Nitroglycerin (Nitrostat) 0.4 mg SL UD PRN PRN Reason: Pain scale 2-4 (Mild) Stop: 09/19/18 17:00 Nutritional Formula (Promod Liquid Protein) 30 ml PO BID [facility] Stop: 09/20/18 20:01 Last Admin: 08/24/18 20:00 Dose: Not Given Ondansetron HCl (Zofran) 4 mg PO Q6H PRN PRN Reason: NAUSEA / VOMITING Stop: 09/20/18 10:38 Last Admin: 08/23/18 15:57 Dose: 4 mg Oxymetazoline HCl (Afrin) 2 appl ZULEIMA BID PRN PRN Reason: NASAL CONGESTION Stop: 09/19/18 17:00 Pantoprazole Sodium (Protonix Tab) 40 mg PO ACB [facility]; Protocol Stop: 09/20/18 07:31 Last Admin: 08/24/18 08:28 Dose: 40 mg Senna/Docusate Sodium (Senokot-S) 2 tab PO BEDTIME JL Stop: 09/20/18 21:01 Last Admin: 08/24/18 21:42 Dose: 2 tab Sodium Chloride (Sodium Chloride 10 Ml Inj) 10 ml IV BID JL Stop: 09/21/18 20:01 Last Admin: 08/24/18 20:00 Dose: 10 ml Thiamine HCl (Vitamin B-1) 100 mg PO DAILY JL Stop: 09/20/18 08:01 Last Admin: 08/24/18 08:29 Dose: 100 mg Lab Results (last 24 hrs) 08/25/18 07:20: POC Glucose 177 H 08/24/18 20:35: POC Glucose 188 H 08/24/18 15:57: POC Glucose 221 H 08/24/18 11:21: POC Glucose 290 H Assessment/ Plan: Nephrology. Feeling better today. Getting stronger. +BM CPS stable without CP or SOB. No acute events overnight. Vitals, medications, blood work and imaging reviewed in the chart. General: In no apparent distress, Oriented x3, Cooperative HEENT: Atraumatic Neck: Supple Respiratory: Clear to auscultation bilaterally Cardiovascular: Regular rate/rhythm, Edema Gastrointestinal: Soft and benign, Non-distended Musculoskeletal: No clubbing, No contractures Integumentary: No rashes, No cyanosis Neurological: Normal speech Blood work reviewed in the chart. Cr 2.74 Imagings Data: EXAM DESCRIPTION: VAS - Abdomen Pelvis Scan - 01/31/2017 9:53 am CLINICAL HISTORY: I65.21, N18.3, I25.10 COMPARISON: None. FINDINGS: The bilateral kidneys are normal in size, the right measuring 9.1 x 4.7 x 4.0 cm and the left measuring 9.7 x 4.5 x 4.4 cm. Aortic velocity: 75 cm/second Right proximal renal artery: 77 cm/second Right mid renal artery: 97 cm/second Right distal renal artery: 43 cm/second Right renal arcuate artery resistive index: 0.4 Right renal artery / aorta ratio: 1.3. Left proximal renal artery: 71 cm/second Left mid renal artery: 58 cm/second Left distal renal artery: 55 cm/second Left renal arcuate artery resistive index: 1.0 Left renal artery/aorta ratio: 0.9 Normal waveforms demonstrated within the bilateral renal arteries. IMPRESSION: No evidence of hemodynamically significant stenosis within the bilateral renal arteries. Conclusions/Impression: A/ OTIS recently requiring dialysis has improved. CKD III but her new baseline may be CKD IV. Proteinuria. DM II with CKD and Polyneuropathy. HTN with CKD/ CHF. ROLDAN. Diastolic CHF, chronic. Anemia in chronic illness. GREGORY/ Secondary HyperPTH. CAD/ PAD. Moderate malnutrition. P/ Continue current POC and Medications. Epo dose adjusted. Continue abx. Start Vitamin D. Titrate insulin as needed to improve BG control. Encourage nutrition. No NSAIDs. AM Labs. Daily weight. PT/ OT as tolerated.
[2018-08-25] MEDS: MINOCYCLINE HCL 50 MG CAP PO SCH ×2 (08:53→20:25)
[2018-08-25] MEDS: FOLIC ACID 1 MG TABLET PO SCH (08:54)
[2018-08-25] MEDS: PANTOPRAZOLE 40MG TABLET PO SCH (08:54)
[2018-08-25] MEDS: CLOPIDOGREL 75 MG TABLET PO SCH (08:54)
[2018-08-25] MEDS: APIXABAN 2.5 MG TABLET PO SCH ×2 (08:55→20:26)
[2018-08-25] MEDS: THIAMINE HCL 100 MG TABLET PO SCH (08:55)
[2018-08-25] MEDS: AMIODARONE HCL 200 MG TAB PO SCH (08:55)
[2018-08-25] MEDS: BUMETANIDE 1 MG TABLET PO SCH ×2 (08:55→17:11)
[2018-08-25] MEDS: CYANOCOBALAMIN 1,000 MCG TAB PO SCH (08:56)
--- NOTE | 2018-08-25 16:23 | FAST ---
SHIFT START DATE/TIME: 08/25/2018 07:00 (CDT) SHIFT END DATE/TIME: 08/25/2018 19:00 (CDT) NAME HENRIQUE ARECHIGA DATE OF : 1940 DATE OF ADMISSION: 08/20/2018 16:21 (CDT) PHONE: AGE: 78 N# [id number] GENDER: Female ENCOUNTER PHYSICIAN: Dr. Rober Keller M.D. ADMISSION DIAGNOSIS: - Cardiac 09 - Cardiac Disorders () NSTEMI. EATING: EATING - STEP 1: Does the patient require the assistance of a person or device, or need extra time when eating? Yes. EATING - STEP 2: Does the patient require the assistance of a helper? No, patient only requires an assistive device, O R s/he takes more than reasonable time to eat, OR there is a safety concern, OR s/he requires modifie d food consistency EATING - SCORE: 6-FAHAD GROOMING: Comb/brush hair Oral care Wash, rinse, and dry face Wash, rinse, and dry hands GROOMING - STEP 1: Does the patient require the assistance of a person or device, or need extra time when grooming? Yes. GROOMING - STEP 2: Does the patient require the assistance of a helper? Yes. GROOMING - STEP 3: How much assistance does the patient require from the helper? Incidental touching assistance from the helper while grooming GROOMING - SCORE: 4-MIN BATHING: Activity did not occur on this shift BATHING - SCORE: 0-UNK DRESSING - UPPER BODY: T-shirt/pullover shirt (four steps) ARTICLES SCORE Total number of steps: 4 DRESSING - UPPER BODY - STEP 1: Does the patient require help from a person or device, or need extra time when dressing above the mickey st? Yes. DRESSING - UPPER BODY - STEP 2: Does the patient require the assistance of a helper? Yes. DRESSING - UPPER BODY - STEP 3: Does the helper touch the patient while dressing? Yes. DRESSING - UPPER BODY - STEP 4: How many of the total steps does the patient complete on his/her own? 4 DRESSING - UPPER BODY - SCORE: 4-MIN DRESSING - LOWER BODY: Elastic waist pants (three steps) Sock - Left foot (one step) Sock - Right foot (one step) ARTICLES SCORE Total number of steps: 5 DRESSING - LOWER BODY - STEP 1: Does the patient require help from a person or device, or need extra time when dressing below the mickey st? Yes. DRESSING - LOWER BODY - STEP 2: Does the patient require the assistance of a helper? Yes. DRESSING - LOWER BODY - STEP 3: Does the helper touch the patient while dressing? Yes. DRESSING - LOWER BODY - STEP 4: How many of the total steps does the patient complete on his/her own? 3 DRESSING - LOWER BODY - SCORE: 3-MOD TOILETING: TOILETING - STEP 1: Does the patient require the assistance of a person or device, or need extra time with toileting? Yes . TOILETING - STEP 2: Does the patient require the assistance of a helper? No. TOILETING - SCORE: 6-FAHAD BLADDER MANAGEMENT: BLADDER MANAGEMENT - STEP 1: Does the patient control the bladder completely and intentionally without equipment or devices or med ications, and is always continent? No. BLADDER MANAGEMENT - STEP 2: Does the patient require the assistance of a helper? No, patient only requires extra time BLADDER MANAGEMENT - SCORE: 6-FAHAD BLADDER MANAGEMENT - FREQUENCY OF ACCIDENTS: BLADDER MANAGEMENT(FA) - STEP 1: How many accidents has the patient had during the current shift? 0 BOWEL MANAGEMENT: BOWEL MANAGEMENT - STEP 1: Does the patient control bowels completely and intentionally without equipment devices or medications AND is always continent? No. BOWEL MANAGEMENT - STEP 2: Does the patient require the assistance of a helper? No, patient requires medication for control such as stool softeners, suppositories, laxatives, enemas, or OTC medications BOWEL MANAGEMENT - SCORE: 6-FAHAD BOWEL MANAGEMENT - FREQUENCY OF ACCIDENTS: BOWEL MANAGEMENT(FA) - STEP 1: How many accidents has the patient had during the current shift? 0 TRANSFERS: BED, CHAIR, WHEELCHAIR: TRANSFERS: BED, CHAIR, WHEELCHAIR - STEP 1: Does the patient require assistance of a person or device, or need extra time with bed, chair, or whe elchair transfers? Yes. TRANSFERS: BED, CHAIR, WHEELCHAIR - STEP 2: Does the patient require the assistance of a helper? Yes. TRANSFERS: BED, CHAIR, WHEELCHAIR - STEP 3: How much assistance does the patient require from the helper? Steadying/guiding assistance TRANSFERS: BED, CHAIR, WHEELCHAIR - SCORE: 4-MIN TRANSFERS: TOILET: TRANSFERS: TOILET - STEP 1: Does the patient require the assistance of a person or device, or need extra time with toilet transfe rs? Yes. TRANSFERS: TOILET - STEP 2: Does the patient require the assistance of a helper? Yes. TRANSFERS: TOILET - STEP 3: How much assistance does the patient require from the helper? Only supervision, cuing, coaxing, OR he lp to set out transfer equipment or to lock brakes and/or lift foot rests TRANSFERS: TOILET - SCORE: 5-SUP TRANSFERS: SHOWER: Activity did not occur on this shift TRANSFERS: SHOWER - SCORE: 0-UNK TRANSFERS: TUB: Activity did not occur on this shift TRANSFERS: TUB - SCORE: 0-UNK LOCOMOTION: WALK: Activity did not occur on this shift LOCOMOTION: WALK - SCORE: 0-UNK LOCOMOTION: WHEELCHAIR: Activity did not occur on this shift LOCOMOTION: WHEELCHAIR - SCORE: 0-UNK COMPREHENSION: COMPREHENSION: TYPE: Both COMPREHENSION - STEP 1: Does the patient require help from a person or device, or need extra time to understand complex and a bstract ideas (such as current events, finances, discharge planning, medical issues, relationships, e tc)? No. COMPREHENSION - STEP 2: Does the patient need extra time, require an assistive device (such as glasses for visual comprehensi on or a hearing aid for auditory comprehension) or does s/he have mild difficulty understanding compl ex and abstract information? Yes. COMPREHENSION - SCORE: 6-FAHAD EXPRESSION EXPRESSION: TYPE: Both EXPRESSION - STEP 1: Does the patient require help from a person or device, or need extra time expressing complex and abst ract ideas (such as current events, finances, discharge planning, medical issues, relationships, etc) ? No. EXPRESSION - STEP 2: Does the patient need extra time, require an assistive device (such as augmentive communication syste m or a communication board), OR does s/he have mild difficulty expressing complex and abstract ideas (including mild dysarthria or mild word-find problems)? Yes. EXPRESSION - SCORE: 6-FAHAD SOCIAL INTERACTION: SOCIAL INTERACTION - STEP 1: Does the patient require a helper to interact with others in social and therapeutic situations? No. SOCIAL INTERACTION - STEP 2: Does the patient need extra time in social situations, OR does s/he interact with staff, other patien ts, and family members ONLY in structured environments, OR does s/he require medication for social in teraction? No. SOCIAL INTERACTION - SCORE: 7-IND PROBLEM SOLVING: PROBLEM SOLVING - STEP 1: Does the patient need help from a person or device, or need extra time to solve complex problems such as managing a checking account or confronting interpersonal problems? No. PROBLEM SOLVING - STEP 2: Does the patient require extra time to make decisions or solve problems, OR does s/he have slight dif ficulty reading, initiating, or self-correcting in unfamiliar situations? Yes, patient needs extra ti me. PROBLEM SOLVING - SCORE: 6-FAHAD MEMORY: MEMORY - STEP 1: Does the patient need help from a person or device, or need extra time to remember frequently encount ered people, daily routines, and executing requests? No. MEMORY - STEP 2: Does the patient have slight difficulty recognizing frequently encountered people, daily routines, or executing requests without the need for repetition or using self-initiated or environmental cues to remember? Yes. MEMORY - SCORE: 6-FAHAD SIGNATURE PANEL: The following modified sections: Eating - Score, Grooming - Score, Bathing - Score, Dressing - Upper Body - Score, Dressing - Lower Body - Score, Toileting - Score, Bladder Management - Score, Bowel Man agement - Score, Transfers: Bed, Chair, Wheelchair - Score, Transfers: Toilet - Score, Transfers: Dorothea wer - Score, Transfers: Tub - Score, Locomotion: Walk - Score, Locomotion: Wheelchair - Score, Compre hension - Score, Expression - Score, Social Interaction - Score, Problem Solving - Score, Memory - Sc ore were [electronically] signed by Krystal Maya C.N.A. on Sat Aug 25 2018 16:22:28 T-0500 (Centra l Daylight Time)
[2018-08-25] MEDS: CLOTRIMAZOLE 1% VAG SCH (20:26)
[2018-08-25] MEDS: ATORVASTATIN 80 MG TAB PO SCH (20:26)
[2018-08-25] MEDS: DOCUSATE NA/SENNA CONC 1 TAB PO SCH (20:26)
[2018-08-26] MEDS: METOPROLOL TAR 25 MG TAB PO SCH ×2 (05:33→17:44)
[2018-08-26] MEDS: PROMOD 30 ML DOSE PO SCH ×2 (08:00→20:00)
[2018-08-26] MEDS: MINOCYCLINE HCL 50 MG CAP PO SCH ×2 (09:19→20:41)
[2018-08-26] MEDS: FOLIC ACID 1 MG TABLET PO SCH (09:20)
[2018-08-26] MEDS: CLOPIDOGREL 75 MG TABLET PO SCH (09:20)
[2018-08-26] MEDS: APIXABAN 2.5 MG TABLET PO SCH ×2 (09:20→20:41)
[2018-08-26] MEDS: CALCITROL 0.25 MCG CAP PO SCH (09:20)
[2018-08-26] MEDS: BUMETANIDE 1 MG TABLET PO SCH ×2 (09:21→17:43)
[2018-08-26] MEDS: CYANOCOBALAMIN 1,000 MCG TAB PO SCH (09:21)
[2018-08-26] MEDS: THIAMINE HCL 100 MG TABLET PO SCH (09:21)
[2018-08-26] MEDS: VITAMIN D 5,000 UNIT CAP PO SCH (09:21)
[2018-08-26] MEDS: AMIODARONE HCL 200 MG TAB PO SCH (09:22)
[2018-08-26] MEDS: PANTOPRAZOLE 40MG TABLET PO SCH (09:27)
[2018-08-26] MEDS: INSULIN -REGULAR HUMAN 50 UNIT/0.5 ML ML SQ SCH ×4 (09:29→20:42)
--- NOTE | 2018-08-26 11:21 | FAST ---
SHIFT START DATE/TIME: 08/26/2018 07:00 (CDT) SHIFT END DATE/TIME: 08/26/2018 19:00 (CDT) NAME HENRIQUE ARECHIGA DATE OF : 1940 DATE OF ADMISSION: 08/20/2018 16:21 (CDT) PHONE: AGE: 78 N# [id number] GENDER: Female ENCOUNTER PHYSICIAN: Dr. Rober Keller M.D. ADMISSION DIAGNOSIS: - Cardiac 09 - Cardiac Disorders () NSTEMI. EATING: EATING - STEP 1: Does the patient require the assistance of a person or device, or need extra time when eating? Yes. EATING - STEP 2: Does the patient require the assistance of a helper? No, patient only requires an assistive device, O R s/he takes more than reasonable time to eat, OR there is a safety concern, OR s/he requires modifie d food consistency EATING - SCORE: 6-FAHAD GROOMING: Comb/brush hair Oral care Wash, rinse, and dry face Wash, rinse, and dry hands GROOMING - STEP 1: Does the patient require the assistance of a person or device, or need extra time when grooming? Yes. GROOMING - STEP 2: Does the patient require the assistance of a helper? Yes. GROOMING - STEP 3: How much assistance does the patient require from the helper? Incidental touching assistance from the helper while grooming GROOMING - SCORE: 4-MIN BATHING: Activity did not occur on this shift BATHING - SCORE: 0-UNK DRESSING - UPPER BODY: Activity did not occur on this shift ARTICLES SCORE Total number of steps: 0 DRESSING - UPPER BODY - SCORE: 0-UNK DRESSING - LOWER BODY: Activity did not occur on this shift ARTICLES SCORE Total number of steps: 0 DRESSING - LOWER BODY - SCORE: 0-UNK TOILETING: TOILETING - STEP 1: Does the patient require the assistance of a person or device, or need extra time with toileting? Yes . TOILETING - STEP 2: Does the patient require the assistance of a helper? No. TOILETING - SCORE: 6-FAHAD BLADDER MANAGEMENT: BLADDER MANAGEMENT - STEP 1: Does the patient control the bladder completely and intentionally without equipment or devices or med ications, and is always continent? No. BLADDER MANAGEMENT - STEP 2: Does the patient require the assistance of a helper? No, patient only requires extra time BLADDER MANAGEMENT - SCORE: 6-FAHAD BLADDER MANAGEMENT - FREQUENCY OF ACCIDENTS: BLADDER MANAGEMENT(FA) - STEP 1: How many accidents has the patient had during the current shift? 0 BOWEL MANAGEMENT: BOWEL MANAGEMENT - STEP 1: Does the patient control bowels completely and intentionally without equipment devices or medications AND is always continent? No. BOWEL MANAGEMENT - STEP 2: Does the patient require the assistance of a helper? No, patient requires extra time BOWEL MANAGEMENT - SCORE: 6-FAHAD BOWEL MANAGEMENT - FREQUENCY OF ACCIDENTS: BOWEL MANAGEMENT(FA) - STEP 1: How many accidents has the patient had during the current shift? 0 TRANSFERS: BED, CHAIR, WHEELCHAIR: TRANSFERS: BED, CHAIR, WHEELCHAIR - STEP 1: Does the patient require assistance of a person or device, or need extra time with bed, chair, or whe elchair transfers? Yes. TRANSFERS: BED, CHAIR, WHEELCHAIR - STEP 2: Does the patient require the assistance of a helper? Yes. TRANSFERS: BED, CHAIR, WHEELCHAIR - STEP 3: How much assistance does the patient require from the helper? Steadying/guiding assistance TRANSFERS: BED, CHAIR, WHEELCHAIR - SCORE: 4-MIN TRANSFERS: TOILET: TRANSFERS: TOILET - STEP 1: Does the patient require the assistance of a person or device, or need extra time with toilet transfe rs? Yes. TRANSFERS: TOILET - STEP 2: Does the patient require the assistance of a helper? Yes. TRANSFERS: TOILET - STEP 3: How much assistance does the patient require from the helper? Only supervision, cuing, coaxing, OR he lp to set out transfer equipment or to lock brakes and/or lift foot rests TRANSFERS: TOILET - SCORE: 5-SUP TRANSFERS: SHOWER: Activity did not occur on this shift TRANSFERS: SHOWER - SCORE: 0-UNK TRANSFERS: TUB: Activity did not occur on this shift TRANSFERS: TUB - SCORE: 0-UNK LOCOMOTION: WALK: Activity did not occur on this shift LOCOMOTION: WALK - SCORE: 0-UNK LOCOMOTION: WHEELCHAIR: Activity did not occur on this shift LOCOMOTION: WHEELCHAIR - SCORE: 0-UNK COMPREHENSION: COMPREHENSION: TYPE: Both COMPREHENSION - STEP 1: Does the patient require help from a person or device, or need extra time to understand complex and a bstract ideas (such as current events, finances, discharge planning, medical issues, relationships, e tc)? No. COMPREHENSION - STEP 2: Does the patient need extra time, require an assistive device (such as glasses for visual comprehensi on or a hearing aid for auditory comprehension) or does s/he have mild difficulty understanding compl ex and abstract information? Yes. COMPREHENSION - SCORE: 6-FAHAD EXPRESSION EXPRESSION: TYPE: Both EXPRESSION - STEP 1: Does the patient require help from a person or device, or need extra time expressing complex and abst ract ideas (such as current events, finances, discharge planning, medical issues, relationships, etc) ? No. EXPRESSION - STEP 2: Does the patient need extra time, require an assistive device (such as augmentive communication syste m or a communication board), OR does s/he have mild difficulty expressing complex and abstract ideas (including mild dysarthria or mild word-find problems)? Yes. EXPRESSION - SCORE: 6-FAHAD SOCIAL INTERACTION: SOCIAL INTERACTION - STEP 1: Does the patient require a helper to interact with others in social and therapeutic situations? No. SOCIAL INTERACTION - STEP 2: Does the patient need extra time in social situations, OR does s/he interact with staff, other patien ts, and family members ONLY in structured environments, OR does s/he require medication for social in teraction? No. SOCIAL INTERACTION - SCORE: 7-IND PROBLEM SOLVING: PROBLEM SOLVING - STEP 1: Does the patient need help from a person or device, or need extra time to solve complex problems such as managing a checking account or confronting interpersonal problems? No. PROBLEM SOLVING - STEP 2: Does the patient require extra time to make decisions or solve problems, OR does s/he have slight dif ficulty reading, initiating, or self-correcting in unfamiliar situations? Yes, patient needs extra ti me. PROBLEM SOLVING - SCORE: 6-FAHAD MEMORY: MEMORY - STEP 1: Does the patient need help from a person or device, or need extra time to remember frequently encount ered people, daily routines, and executing requests? No. MEMORY - STEP 2: Does the patient have slight difficulty recognizing frequently encountered people, daily routines, or executing requests without the need for repetition or using self-initiated or environmental cues to remember? No. MEMORY - SCORE: 7-IND SIGNATURE PANEL: The following modified sections: Eating - Score, Grooming - Score, Bathing - Score, Dressing - Upper Body - Score, Dressing - Lower Body - Score, Toileting - Score, Bladder Management - Score, Bowel Man agement - Score, Transfers: Bed, Chair, Wheelchair - Score, Transfers: Toilet - Score, Transfers: Dorothea wer - Score, Transfers: Tub - Score, Locomotion: Walk - Score, Locomotion: Wheelchair - Score, Compre hension - Score, Expression - Score, Social Interaction - Score, Problem Solving - Score, Memory - Sc ore were [electronically] signed by Krystal Maya C.N.Aimee on MonAug 26 2018 11:21:21 T-0500 (Centra l Daylight Time)
[2018-08-26] MEDS ORDERED: GLUCAGON 1 MG/VIAL IM PRN ×2 (14:54→14:56)
[2018-08-26] MEDS ORDERED: D50W 25 GM/50 ML SYRINGE IV PRN ×2 (14:54→14:56)
--- NOTE | 2018-08-26 15:42 | PN ---
Date of Progress Note: 08/25/2018 Subjective: Ms. Gonzalez had been admitted to rehab approximately 3 days ago after a prolonged hospi talization at [facility] where she underwent coronary stents under intra-aortic ba lloon pump insertion. She was in the hospital for few days over there. She came back here for rehab . Since she has been here, she has improved dramatically from a physical functional status standpoin t. She is denying any chest pain or shortness of breath. She had an incision where the intra-aortic balloon was and that has healed well. She is in sinus rhythm. No edema in the lower extremities an d no rales. I will continue her present regimen for now. She has a LifeVest and we have not seen or detected any arrhythmias on her. The plan in the long run is for her to go home. We will get anoth er echocardiogram to check back on her ejection fraction. Her EF after her stent was 30%. We are ho ping that this will improve. We will probably keep the LifeVest on her for at least 1 month. I will plan to do an echocardiogram probably in October or sometime to see what her ejection fraction has done with medical therapy. No change in therapy for now. ALEJANDRO/LIO Voice ID: [id number] Report ID: [id number]
[2018-08-26] MEDS: ATORVASTATIN 80 MG TAB PO SCH (20:41)
[2018-08-26] MEDS: CLOTRIMAZOLE 1% VAG SCH (20:42)
[2018-08-26] MEDS: DOCUSATE NA/SENNA CONC 1 TAB PO SCH (20:46)
--- NOTE | 2018-08-27 03:07 | FAST ---
SHIFT START DATE/TIME: 08/26/2018 19:00 (CDT) SHIFT END DATE/TIME: 08/27/2018 07:00 (CDT) NAME HENRIQUE ARECHIGA DATE OF : 1940 DATE OF ADMISSION: 08/20/2018 16:21 (CDT) PHONE: AGE: 78 N# [id number] GENDER: Female ENCOUNTER PHYSICIAN: Dr. Rober Keller M.D. ADMISSION DIAGNOSIS: - Cardiac 09 - Cardiac Disorders () NSTEMI. EATING: Activity did not occur on this shift EATING - SCORE: 0-UNK GROOMING: Activity did not occur on this shift GROOMING - SCORE: 0-UNK BATHING: Activity did not occur on this shift BATHING - SCORE: 0-UNK DRESSING - UPPER BODY: Activity did not occur on this shift ARTICLES SCORE Total number of steps: 0 DRESSING - UPPER BODY - SCORE: 0-UNK DRESSING - LOWER BODY: Activity did not occur on this shift ARTICLES SCORE Total number of steps: 0 DRESSING - LOWER BODY - SCORE: 0-UNK TOILETING: TOILETING - SCORE: 0-UNK BLADDER MANAGEMENT: BLADDER MANAGEMENT - STEP 1: Does the patient control the bladder completely and intentionally without equipment or devices or med ications, and is always continent? No. BLADDER MANAGEMENT - STEP 2: Does the patient require the assistance of a helper? Yes. BLADDER MANAGEMENT - STEP 3: How much assistance does the patient require from the helper? Only supervision, stand-by, cuing, or c oaxing BLADDER MANAGEMENT - SCORE: 5-SUP BLADDER MANAGEMENT - FREQUENCY OF ACCIDENTS: BLADDER MANAGEMENT(FA) - STEP 1: How many accidents has the patient had during the current shift? 0 BOWEL MANAGEMENT: Activity did not occur on this shift BOWEL MANAGEMENT - SCORE: 7-IND BOWEL MANAGEMENT - FREQUENCY OF ACCIDENTS: BOWEL MANAGEMENT(FA) - STEP 1: How many accidents has the patient had during the current shift? 0 TRANSFERS: BED, CHAIR, WHEELCHAIR: TRANSFERS: BED, CHAIR, WHEELCHAIR - STEP 1: Does the patient require assistance of a person or device, or need extra time with bed, chair, or whe elchair transfers? Yes. TRANSFERS: BED, CHAIR, WHEELCHAIR - STEP 2: Does the patient require the assistance of a helper? Yes. TRANSFERS: BED, CHAIR, WHEELCHAIR - STEP 3: How much assistance does the patient require from the helper? Only supervision TRANSFERS: BED, CHAIR, WHEELCHAIR - SCORE: 5-SUP TRANSFERS: TOILET: TRANSFERS: TOILET - STEP 1: Does the patient require the assistance of a person or device, or need extra time with toilet transfe rs? Yes. TRANSFERS: TOILET - STEP 2: Does the patient require the assistance of a helper? Yes. TRANSFERS: TOILET - STEP 3: How much assistance does the patient require from the helper? Only supervision, cuing, coaxing, OR he lp to set out transfer equipment or to lock brakes and/or lift foot rests TRANSFERS: TOILET - SCORE: 5-SUP TRANSFERS: SHOWER: Activity did not occur on this shift TRANSFERS: SHOWER - SCORE: 0-UNK TRANSFERS: TUB: Activity did not occur on this shift TRANSFERS: TUB - SCORE: 0-UNK LOCOMOTION: WALK: Activity did not occur on this shift LOCOMOTION: WALK - SCORE: 0-UNK LOCOMOTION: WHEELCHAIR: Activity did not occur on this shift LOCOMOTION: WHEELCHAIR - SCORE: 0-UNK COMPREHENSION: COMPREHENSION: TYPE: Both COMPREHENSION - STEP 1: Does the patient require help from a person or device, or need extra time to understand complex and a bstract ideas (such as current events, finances, discharge planning, medical issues, relationships, e tc)? No. COMPREHENSION - STEP 2: Does the patient need extra time, require an assistive device (such as glasses for visual comprehensi on or a hearing aid for auditory comprehension) or does s/he have mild difficulty understanding compl ex and abstract information? Yes. COMPREHENSION - SCORE: 6-FAHAD EXPRESSION EXPRESSION: TYPE: Both EXPRESSION - STEP 1: Does the patient require help from a person or device, or need extra time expressing complex and abst ract ideas (such as current events, finances, discharge planning, medical issues, relationships, etc) ? No. EXPRESSION - STEP 2: Does the patient need extra time, require an assistive device (such as augmentive communication syste m or a communication board), OR does s/he have mild difficulty expressing complex and abstract ideas (including mild dysarthria or mild word-find problems)? Yes. EXPRESSION - SCORE: 6-FAHAD SOCIAL INTERACTION: SOCIAL INTERACTION - STEP 1: Does the patient require a helper to interact with others in social and therapeutic situations? No. SOCIAL INTERACTION - STEP 2: Does the patient need extra time in social situations, OR does s/he interact with staff, other patien ts, and family members ONLY in structured environments, OR does s/he require medication for social in teraction? No. SOCIAL INTERACTION - SCORE: 7-IND PROBLEM SOLVING: PROBLEM SOLVING - STEP 1: Does the patient need help from a person or device, or need extra time to solve complex problems such as managing a checking account or confronting interpersonal problems? No. PROBLEM SOLVING - STEP 2: Does the patient require extra time to make decisions or solve problems, OR does s/he have slight dif ficulty reading, initiating, or self-correcting in unfamiliar situations? Yes, patient needs extra ti me. PROBLEM SOLVING - SCORE: 6-FAHAD MEMORY: MEMORY - STEP 1: Does the patient need help from a person or device, or need extra time to remember frequently encount ered people, daily routines, and executing requests? No. MEMORY - STEP 2: Does the patient have slight difficulty recognizing frequently encountered people, daily routines, or executing requests without the need for repetition or using self-initiated or environmental cues to remember? Yes. MEMORY - SCORE: 6-FAHAD SIGNATURE PANEL: The following modified sections: Eating - Score, Grooming - Score, Bathing - Score, Dressing - Upper Body - Score, Dressing - Lower Body - Score, Bladder Management - Score, Bowel Management - Score, Tr ansfers: Bed, Chair, Wheelchair - Score, Transfers: Toilet - Score, Transfers: Shower - Score, Transf ers: Tub - Score, Locomotion: Walk - Score, Locomotion: Wheelchair - Score, Comprehension - Score, Ex pression - Score, Social Interaction - Score, Problem Solving - Score, Memory - Score were [alfonsoi mane] signed by Emma Jarquin RN on MonAug 27 2018 03:06:43 GMT-0500 (Central Daylight Time)
[2018-08-27] MEDS: METOPROLOL TAR 25 MG TAB PO SCH ×2 (05:24→17:06)
[2018-08-27 06:05] LABS: Absolute Lymphocytes (CBC) 0.9 K/uL (0.7-4.9); Basophils % 1.4 % (0-1.3); Eosinophils % 11.2 % (0-4.4); Hematocrit 33.4 % (36.0-45.0); Lymphocytes % 26.6 % (15.3-44.8); MPV 8.2 fL (7.6-11.3); Monocytes % 16.9 % (3.3-12.3); RBC Red Blood Cell Count 3.37 M/uL (3.86-4.86)
[2018-08-27 06:29] LABS: Potassium 4.2 mmol/L (3.5-5.1)
[2018-08-27] MEDS: PANTOPRAZOLE 40MG TABLET PO SCH (07:10)
[2018-08-27 07:22] LABS: Anisocytosis 1+; Blood Morphology Comment NOTED (NOT SEEN); Platelet Estimate ADEQ; Urine White Blood Cell Casts OK
[2018-08-27] MEDS: INSULIN -REGULAR HUMAN 50 UNIT/0.5 ML ML SQ SCH ×4 (07:30→22:00)
[2018-08-27] MEDS: ONDANSETRON 4 MG (ODT) TAB PO PRN ×4 (07:50→20:46)
[2018-08-27] MEDS: INSULIN GLARGINE 100 UNITS/ML SQ SCH (07:51)
[2018-08-27] MEDS ORDERED: INSULIN GLARGINE 100 UNITS/ML SQ SCH (08:00)
[2018-08-27] MEDS: PROMOD 30 ML DOSE PO SCH ×2 (08:00→20:51)
[2018-08-27] MEDS: CLOPIDOGREL 75 MG TABLET PO SCH (09:07)
[2018-08-27] MEDS: CALCITROL 0.25 MCG CAP PO SCH (09:07)
[2018-08-27] MEDS: APIXABAN 2.5 MG TABLET PO SCH ×2 (09:07→20:47)
[2018-08-27] MEDS: THIAMINE HCL 100 MG TABLET PO SCH (09:07)
[2018-08-27] MEDS: MINOCYCLINE HCL 50 MG CAP PO SCH (09:07)
[2018-08-27] MEDS: AMIODARONE HCL 200 MG TAB PO SCH (09:07)
[2018-08-27] MEDS: CYANOCOBALAMIN 1,000 MCG TAB PO SCH (09:08)
[2018-08-27] MEDS: BUMETANIDE 1 MG TABLET PO SCH ×2 (09:08→17:04)
[2018-08-27] MEDS: FOLIC ACID 1 MG TABLET PO SCH (09:08)
[2018-08-27] MEDS: VITAMIN D 5,000 UNIT CAP PO SCH (09:09)
--- NOTE | 2018-08-27 10:10 | RAD REPORT ---
EXAM DESCRIPTION: RAD - Chest Single View - 08/27/2018 9:53 am CLINICAL HISTORY: Fever, chills COMPARISON: July 29 TECHNIQUE: AP portable chest image was obtained 0949 hours . FINDINGS: No focal mass or consolidation of the right lung field. Left lung field also appears to be clear. Left base assessment is limited by slight motion and overlying cardiac monitoring equipment t rachea is midline. Numerous cardiac monitoring devices overlie the chest. Heart and vasculature are n ormal. No measurable pleural effusion and no pneumothorax. No acute bony abnormality seen. No acute a ortic findings suspected. IMPRESSION: No acute cardiopulmonary process suspected. Left base assessment is limited. Follow-up c an be obtained as warranted.
--- NOTE | 2018-08-27 11:03 | FAST ---
SHIFT START DATE/TIME: 08/27/2018 07:00 (CDT) SHIFT END DATE/TIME: 08/27/2018 19:00 (CDT) NAME HENRIQUE ARECHIGA DATE OF : 1940 DATE OF ADMISSION: 08/20/2018 16:21 (CDT) PHONE: AGE: 78 N# [id number] GENDER: Female ENCOUNTER PHYSICIAN: Dr. Rober Keller M.D. ADMISSION DIAGNOSIS: - Cardiac 09 - Cardiac Disorders () NSTEMI. EATING: EATING - STEP 1: Does the patient require the assistance of a person or device, or need extra time when eating? Yes. EATING - STEP 2: Does the patient require the assistance of a helper? No, patient only requires an assistive device, O R s/he takes more than reasonable time to eat, OR there is a safety concern, OR s/he requires modifie d food consistency EATING - SCORE: 6-FAHAD GROOMING: Activity did not occur on this shift GROOMING - SCORE: 0-UNK BATHING: Activity did not occur on this shift BATHING - SCORE: 0-UNK DRESSING - UPPER BODY: Activity did not occur on this shift ARTICLES SCORE Total number of steps: 0 DRESSING - UPPER BODY - SCORE: 0-UNK DRESSING - LOWER BODY: Activity did not occur on this shift ARTICLES SCORE Total number of steps: 0 DRESSING - LOWER BODY - SCORE: 0-UNK TOILETING: TOILETING - STEP 1: Does the patient require the assistance of a person or device, or need extra time with toileting? Yes . TOILETING - STEP 2: Does the patient require the assistance of a helper? Yes. TOILETING - STEP 3: How much assistance does the patient require from the helper? Hands-on assistance from the helper TOILETING - STEP 4: Of the 3 tasks: 1) Adjusting clothing prior to use, 2) Cleansing of perineal area, 3) Adjusting clot jenniffer after use; How many tasks does the patient perform WITHOUT assistance of the helper? Three tasks with steadying assistance from the helper TOILETING - SCORE: 4-MIN BLADDER MANAGEMENT: BLADDER MANAGEMENT - STEP 1: Does the patient control the bladder completely and intentionally without equipment or devices or med ications, and is always continent? No. BLADDER MANAGEMENT - STEP 2: Does the patient require the assistance of a helper? No, patient requires and independently uses an a ssistive device, such as a urinal, bedpan, bedside commode, catheter, absorbent pad, or collecting de vice BLADDER MANAGEMENT - SCORE: 6-FAHAD BOWEL MANAGEMENT: Activity did not occur on this shift BOWEL MANAGEMENT - SCORE: 7-IND TRANSFERS: BED, CHAIR, WHEELCHAIR: TRANSFERS: BED, CHAIR, WHEELCHAIR - STEP 1: Does the patient require assistance of a person or device, or need extra time with bed, chair, or whe elchair transfers? Yes. TRANSFERS: BED, CHAIR, WHEELCHAIR - STEP 2: Does the patient require the assistance of a helper? Yes. TRANSFERS: BED, CHAIR, WHEELCHAIR - STEP 3: How much assistance does the patient require from the helper? Steadying/guiding assistance TRANSFERS: BED, CHAIR, WHEELCHAIR - SCORE: 4-MIN TRANSFERS: TOILET: TRANSFERS: TOILET - STEP 1: Does the patient require the assistance of a person or device, or need extra time with toilet transfe rs? Yes. TRANSFERS: TOILET - STEP 2: Does the patient require the assistance of a helper? Yes. TRANSFERS: TOILET - STEP 3: How much assistance does the patient require from the helper? Patient performs half or more of the tr ansferring tasks TRANSFERS: TOILET - STEP 4: Does the patient need only incidental help such as contact guard or steadying during toilet transfer? Yes. TRANSFERS: TOILET - SCORE: 4-MIN TRANSFERS: SHOWER: Activity did not occur on this shift TRANSFERS: SHOWER - SCORE: 0-UNK TRANSFERS: TUB: Activity did not occur on this shift TRANSFERS: TUB - SCORE: 0-UNK LOCOMOTION: WALK: Activity did not occur on this shift LOCOMOTION: WALK - SCORE: 0-UNK LOCOMOTION: WHEELCHAIR: Activity did not occur on this shift LOCOMOTION: WHEELCHAIR - SCORE: 0-UNK COMPREHENSION: COMPREHENSION: TYPE: Both COMPREHENSION - STEP 1: Does the patient require help from a person or device, or need extra time to understand complex and a bstract ideas (such as current events, finances, discharge planning, medical issues, relationships, e tc)? No. COMPREHENSION - STEP 2: Does the patient need extra time, require an assistive device (such as glasses for visual comprehensi on or a hearing aid for auditory comprehension) or does s/he have mild difficulty understanding compl ex and abstract information? Yes. COMPREHENSION - SCORE: 6-FAHAD EXPRESSION EXPRESSION: TYPE: Both EXPRESSION - STEP 1: Does the patient require help from a person or device, or need extra time expressing complex and abst ract ideas (such as current events, finances, discharge planning, medical issues, relationships, etc) ? No. EXPRESSION - STEP 2: Does the patient need extra time, require an assistive device (such as augmentive communication syste m or a communication board), OR does s/he have mild difficulty expressing complex and abstract ideas (including mild dysarthria or mild word-find problems)? No. EXPRESSION - SCORE: 7-IND SOCIAL INTERACTION: SOCIAL INTERACTION - STEP 1: Does the patient require a helper to interact with others in social and therapeutic situations? No. SOCIAL INTERACTION - STEP 2: Does the patient need extra time in social situations, OR does s/he interact with staff, other patien ts, and family members ONLY in structured environments, OR does s/he require medication for social in teraction? No. SOCIAL INTERACTION - SCORE: 7-IND PROBLEM SOLVING: PROBLEM SOLVING - STEP 1: Does the patient need help from a person or device, or need extra time to solve complex problems such as managing a checking account or confronting interpersonal problems? No. PROBLEM SOLVING - STEP 2: Does the patient require extra time to make decisions or solve problems, OR does s/he have slight dif ficulty reading, initiating, or self-correcting in unfamiliar situations? Yes, patient has slight dif ficulty reading, initiating, or self-correcting in unfamiliar situations. PROBLEM SOLVING - SCORE: 6-FAHAD MEMORY: MEMORY - STEP 1: Does the patient need help from a person or device, or need extra time to remember frequently encount ered people, daily routines, and executing requests? No. MEMORY - STEP 2: Does the patient have slight difficulty recognizing frequently encountered people, daily routines, or executing requests without the need for repetition or using self-initiated or environmental cues to remember? Yes. MEMORY - SCORE: 6-FAHAD SIGNATURE PANEL: The following modified sections: Eating - Score, Grooming - Score, Bathing - Score, Dressing - Upper Body - Score, Dressing - Lower Body - Score, Toileting - Score, Bladder Management - Score, Bowel Man agement - Score, Transfers: Bed, Chair, Wheelchair - Score, Transfers: Toilet - Score, Transfers: Dorothea wer - Score, Transfers: Tub - Score, Locomotion: Walk - Score, Locomotion: Wheelchair - Score, Compre hension - Score, Expression - Score, Social Interaction - Score, Problem Solving - Score, Memory - Sc ore were [electronically] signed by Hector Macias on MonAug 27 2018 11:02:24 GMT-0500 (Central Daylight Time)
--- NOTE | 2018-08-27 17:07 | FAST ---
ENCOUNTER DATE AND TIME: 08/27/2018 08:00 (CDT) NAME HENRIQUE ARECHIGA DATE OF : 1940 DATE OF ADMISSION: 08/20/2018 16:21 (CDT) PHONE: AGE: 78 SSN# [id number] GENDER: Female ENCOUNTER PHYSICIAN: Dr. Rober Keller M.D. ADMISSION DIAGNOSIS: - Cardiac 09 - Cardiac Disorders () NSTEMI. EATING: Activity did not occur on this shift EATING - SCORE: 0-UNK GROOMING: Comb/brush hair Wash, rinse, and dry face Wash, rinse, and dry hands GROOMING - STEP 1: Does the patient require the assistance of a person or device, or need extra time when grooming? Yes. GROOMING - STEP 2: Does the patient require the assistance of a helper? No. The patient only requires an assistive devic e, OR takes more than reasonable time to groom, OR there is a concern for safety as the patient groom s GROOMING - SCORE: 6-FAHAD BATHING: Abdomen Buttocks Chest Left arm Left upper leg Perineal area Right arm Right lower leg and foot Right upper leg BATHING - STEP 1: Does the patient require the assistance of a person or device, or need extra time when bathing? Yes. BATHING - STEP 2: Does the patient require the assistance of a helper? Yes. BATHING - STEP 3: How much assistance does the patient require from the helper? Only incidental help such as placement of a wash cloth in his/her hand a few times as s/he bathes OR help to bathe just one or two areas of the body BATHING - SCORE: 4-MIN DRESSING - UPPER BODY: Bra (three steps) T-shirt/pullover shirt (four steps) ARTICLES SCORE Total number of steps: 7 DRESSING - UPPER BODY - STEP 1: Does the patient require help from a person or device, or need extra time when dressing above the mickey st? Yes. DRESSING - UPPER BODY - STEP 2: Does the patient require the assistance of a helper? Yes. DRESSING - UPPER BODY - STEP 3: Does the helper touch the patient while dressing? Yes. DRESSING - UPPER BODY - STEP 4: How many of the total steps does the patient complete on his/her own? 6 DRESSING - UPPER BODY - SCORE: 4-MIN DRESSING - LOWER BODY: Elastic waist pants (three steps) Sock - Left foot (one step) Sock - Right foot (one step) ARTICLES SCORE Total number of steps: 5 DRESSING - LOWER BODY - STEP 1: Does the patient require help from a person or device, or need extra time when dressing below the mickey st? Yes. DRESSING - LOWER BODY - STEP 2: Does the patient require the assistance of a helper? Yes. DRESSING - LOWER BODY - STEP 3: Does the helper touch the patient while dressing? Yes. DRESSING - LOWER BODY - STEP 4: How many of the total steps does the patient complete on his/her own? 5 DRESSING - LOWER BODY - SCORE: 4-MIN TOILETING: Activity did not occur on this shift TOILETING - SCORE: 0-UNK BLADDER MANAGEMENT: Activity did not occur on this shift BLADDER MANAGEMENT - SCORE: 7-IND BOWEL MANAGEMENT: Activity did not occur on this shift BOWEL MANAGEMENT - SCORE: 7-IND TRANSFERS: BED, CHAIR, WHEELCHAIR: TRANSFERS: BED, CHAIR, WHEELCHAIR - STEP 1: Does the patient require assistance of a person or device, or need extra time with bed, chair, or whe elchair transfers? Yes. TRANSFERS: BED, CHAIR, WHEELCHAIR - STEP 2: Does the patient require the assistance of a helper? Yes. TRANSFERS: BED, CHAIR, WHEELCHAIR - STEP 3: How much assistance does the patient require from the helper? Only supervision TRANSFERS: BED, CHAIR, WHEELCHAIR - SCORE: 5-SUP TRANSFERS: TOILET: Activity did not occur on this shift TRANSFERS: TOILET - SCORE: 0-UNK TRANSFERS: SHOWER: TRANSFERS: SHOWER - STEP 1: Does the patient require the assistance of a person or device, or need extra time with shower transfe rs? Yes. TRANSFERS: SHOWER - STEP 2: Does the patient require the assistance of a helper? Yes. TRANSFERS: SHOWER - STEP 3: How much assistance does the patient require from the helper? Only supervision, cuing, coaxing, or he lp to set out transfer equipment or to lock brakes and/or lift foot rests TRANSFERS: SHOWER - SCORE: 5-SUP TRANSFERS: TUB: Activity did not occur on this shift TRANSFERS: TUB - SCORE: 0-UNK LOCOMOTION: WALK: Activity did not occur on this shift LOCOMOTION: WALK - SCORE: 0-UNK LOCOMOTION: WHEELCHAIR: Activity did not occur on this shift LOCOMOTION: WHEELCHAIR - SCORE: 0-UNK LOCOMOTION: STAIRS: Activity did not occur on this shift LOCOMOTION: STAIRS - SCORE: 0-UNK COMPREHENSION: COMPREHENSION: TYPE: Both COMPREHENSION - STEP 1: Does the patient require help from a person or device, or need extra time to understand complex and a bstract ideas (such as current events, finances, discharge planning, medical issues, relationships, e tc)? Yes. COMPREHENSION - STEP 2: Does the patient require help to understand questions or statements about basic needs or ideas (such as hunger, thirst, sleep, safety, daily schedule, room location, or discomfort) half or more of the t letty? No. COMPREHENSION - STEP 3: How often does the patient need help to understand directions and conversation about basic needs? Les s than 10% of the time COMPREHENSION - SCORE: 5-SUP EXPRESSION EXPRESSION: TYPE: Both EXPRESSION - STEP 1: Does the patient require help from a person or device, or need extra time expressing complex and abst ract ideas (such as current events, finances, discharge planning, medical issues, relationships, etc) ? No. EXPRESSION - STEP 2: Does the patient need extra time, require an assistive device (such as augmentive communication syste m or a communication board), OR does s/he have mild difficulty expressing complex and abstract ideas (including mild dysarthria or mild word-find problems)? Yes. EXPRESSION - SCORE: 6-FAHAD SOCIAL INTERACTION: SOCIAL INTERACTION - STEP 1: Does the patient require a helper to interact with others in social and therapeutic situations? No. SOCIAL INTERACTION - STEP 2: Does the patient need extra time in social situations, OR does s/he interact with staff, other patien ts, and family members ONLY in structured environments, OR does s/he require medication for social in teraction? Yes, patient needs extra time SOCIAL INTERACTION - SCORE: 6-FAHAD PROBLEM SOLVING: PROBLEM SOLVING - STEP 1: Does the patient need help from a person or device, or need extra time to solve complex problems such as managing a checking account or confronting interpersonal problems? Yes. PROBLEM SOLVING - STEP 2: Does the patient solve basic routine problems half or more of the time? Yes. PROBLEM SOLVING - STEP 3: How often does the patient need help to solve basic routine problems? 10%-24% of the time PROBLEM SOLVING - SCORE: 4-MIN MEMORY: MEMORY - STEP 1: Does the patient need help from a person or device, or need extra time to remember frequently encount ered people, daily routines, and executing requests? Yes. MEMORY - STEP 2: How often does the patient need help to remember frequently encountered people, daily routines, and e xecuting requests? Less than 10% of the time MEMORY - SCORE: 5-SUP SIGNATURE PANEL: The following modified sections: Eating - Score, Grooming - Score, Bathing - Score, Dressing - Upper Body - Score, Dressing - Lower Body - Score, Toileting - Score, Transfers: Bed, Chair, Wheelchair - S core, Transfers: Toilet - Score, Transfers: Shower - Score, Transfers: Tub - Score, Comprehension - S core, Expression - Score, Social Interaction - Score, Problem Solving - Score, Memory - Score were [e lectronically] signed by Keysha Hull OT on MonAug 27 2018 17:06:44 T-0500 ([facility])
[2018-08-27] MEDS: EPOETIN ALFA 10,000 UNIT/ML SQ SCH (17:10)
--- NOTE | 2018-08-27 19:13 | R.PN ---
ENCOUNTER DATE AND TIME: 08/27/2018 19:09 (CDT) NAME HENRIQUE ARECHIGA DATE OF : 1940 DATE OF ADMISSION: 08/20/2018 16:21 (CDT) NSTEMICHIEF COMPLAINT: Debility and NSTSMI SUBJECTIVE: Pt denied any Shortness of Breath. Pt denied any depression. Hgb 10.8, WBC 3.2, glucose 134 to 201, Hgb A1c 6.0. Chest x-ray no acute changes. Ambulated 350' with standby assistance using a rolling walker. Up and down 10 steps with contact guar d assistance. VITAL SIGNS Temperature: 97.4 F SBP/DBP: 143/65 Pulse: 85 Resp: 16 MEDICATION ALLERGIES: Heparin analogues iodine and iodide containing products morphine vicodin codeine levaquin phenergan reglan benadryl ENVIRONMENTAL ALLERGIES: - Substance Allergies None Known - Other Allergies None Known NURSING: - Shower allowing shower ACTIVITIES OOB only with supervision THERAPIES: - Dietary and Nutrition Adequate Nutrition. Nutritional Education. Nutritional Supplements. PHYSICAL EXAM - Gen Alert and awake Lying in bed No apparent distress Oriented to: person, time, and place - Skin No skin breakdown. No abnormalities - Eyes No abnormalities - ENMT No abnormalities - Neck No abnormalities - CVS RRR - Chest No abnormalities - Abd Soft - GI + bowel sounds Deferred - No abnormalities - Ext No significant edema. - MSK 4/5 weakness in both lower extremities. - Neuro No focal deficits - Psych No abnormalities ASSESSMENT: Pt. is a 78 yo Right-handed white female.On 07/31/2018 she was admitted to [facility] with diagnosis NSTEMI.Her impairment category is Cardiac 09 - Cardiac Disorders (09).Pre-mor bidly, Pt. was independent/mod-I in Self-Care, Sphincter Control, Transfers Control, Communication, S ocial Cognition, and Locomotion; and she had good Sphincter Control.Currently, she has deficits of Tr ansfers Control, Communication, Social Cognition, Endurance, Balance, Safety Awareness, Self-Care, an d Locomotion.Pt. is now referred to [facility] for acute in-patient rehabilita tion in order to maximize patient's functional independence in activities of daily living, strength, ROM, and mobility.- Rehab Goal Patient has realistic goal of being discharged at assistance level 6-Tracie to reside at Home with Fam giovanna/Relatives. MDM/PLAN: - Physical Therapy Gait dysfunction - to improve, our physical therapists will perform initial evaluation of pt's statu s upon admission and devise an individualized program for Gait Training, and Wheel Chair mobility Inability to transfer - to improve, our physical therapists will perform initial evaluation of pt's status upon admission and devise an individualized program for Bed mobility Need for home safety evaluation - to improve, our physical therapists will perform initial evaluatio n of pt's status upon admission and devise an individualized program for Home Evaluation Need in caregiver upon discharge - to improve, our physical therapists will perform initial evaluati on of pt's status upon admission and devise an individualized program for Caregiver Training New precaution - to improve, our physical therapists will perform initial evaluation of pt's status upon admission and devise an individualized program for Patient precaution education Edema - to improve, our physical therapists will perform initial evaluation of pt's status upon admi ssion and devise an individualized program for Elevation Training, and Lymphedema Therapy Poor balance - to improve, our physical therapists will perform initial evaluation of pt's status up on admission and devise an individualized program for Balance Training Poor endurance - to improve, our physical therapists will perform initial evaluation of pt's status upon admission and devise an individualized program for Endurance Training Weakness - to improve, our physical therapists will perform initial evaluation of pt's status upon a dmission and devise an individualized program for Aquatic Therapy, Neuromuscular Reeducation, and Str engthening Achieving independence - to improve, our physical therapists will perform initial evaluation of pt's status upon admission and devise an individualized program for Community Reintegration Activities - Occupational Therapy ADL deficits - to improve, our occupation therapists will perform initial evaluation of pt's status upon admission and devise an individualized program for Bathing, Bed mobility, Community Reintegratio n, Cooking, Dressing, Eating, Fine Motor Skills, Grooming, Homemaking, Kitchen Mobility, Laundry, Pat ient Education, Safety Awareness, Splinting - Positioning, Transfers(Toilet, Tub, Shower), and Wheel Chair Management Cognitive deficits - to improve, our occupation therapists will perform initial evaluation of pt's s tatus upon admission and devise an individualized program for Cognition - orientation Need for doggy daycare activities director - to improve, our occupation therapists will perform initial evaluation of pt's status upon admission and devise an individualized program for Caregiver Training Weakness - to improve, our occupation therapists will perform initial evaluation of pt's status upon admission and devise an individualized program for Aquatic Therapy, Balance, Endurance, UE ROM, and UE strengthening - Other See attached MAR (Medication Administration Record) [id number].pdf - Diet Type Continue ADA 1800 jesús - Diet - Liquid Texture Continue Regular - Tube Feed Continue N/A - Diet - Solid Texture Continue Regular - Shower allowing shower FUNCTIONAL STATUS: UPDATED AT WEEKLY TEAM CONFERENCE - Bladder Same accident frequency: 7-Ind - No accidents in the past 7 days - Bowel Same accident frequency: 7-Ind - No accidents in the past 7 days - Walking Same score based on distance walked: 0(N/A) FUNCTIONAL STATUS: - Self-Care A. Eating Ind B. Grooming sup C. Bathing Aj D. Dressing - Upper sup E. Dressing - Lower modA F. Toileting modA - Sphincter Control G: Bladder control Ind H: Bowel control Ind - Transfers Control I. Bed/Chair/Wheelchair CGA J. Toilet CGA K. Tub/Shower CGA - Locomotion L. Walk/Wheelchair (B) maxA M. Stairs ADNO - Communication N. Comprehension (B) sup O. Expression (B) sup - Social Cognition P. Social Interaction sup Q. Problem Solving sup R. Memory sup - Endurance Poor - Balance Fair - Safety Awareness Fair CURRENT FUNC. DEFICITS: Transfers Control, Communication, Social Cognition, Endurance, Balance, Safety Awareness, Self-Care, and Locomotion SIGNATURE PANEL: (CDT)
[2018-08-27 19:51] LABS: Urine Appearance CLEAR; Urine Bilirubin NEGATIVE (NEG); Urine Blood NEGATIVE (NEG); Urine Color YELLOW; Urine Glucose NEGATIVE (NEG); Urine Protein NEGATIVE (NEG); Urine Urobilinogen 0.2 mg/dL (0.2-1.0); Urine pH 5.5 (5.0-7.0)
[2018-08-27 20:05] LABS: Urine Microscopic Reflex ORDER UMIC
--- NOTE | 2018-08-27 20:27 | P.PN ---
Date of Service: 08/27/18 Vital Signs Temp Pulse Resp BP Pulse Ox 97.4 F 70 14 114/56 L 98 08/27/18 19:18 08/27/18 19:18 08/27/18 19:18 08/27/18 19:18 08/27/18 19:18 Medications Acetaminophen (Tylenol -Extra Strength) 1,000 mg PO Q6H PRN PRN Reason: Pain scale 2-4 (Mild) Stop: 09/19/18 17:01 Last Admin: 08/23/18 10:35 Dose: 1,000 mg Amiodarone HCl (Cordarone Tab) 200 mg PO DAILY JL Stop: 09/20/18 08:01 Last Admin: 08/27/18 09:07 Dose: 200 mg Apixaban (Eliquis) 2.5 mg PO BID JL Stop: 09/22/18 08:01 Last Admin: 08/27/18 09:07 Dose: 2.5 mg Atorvastatin Calcium (Lipitor) 80 mg PO BEDTIME JL Stop: 09/26/18 21:01 Bumetanide (Bumex) 0.5 mg PO BID@0800,1700 JL Stop: 09/20/18 08:01 Last Admin: 08/27/18 17:04 Dose: 0.5 mg Calcitriol (Rocaltrol) 0.5 mcg PO DAILY JL Stop: 09/25/18 08:01 Last Admin: 08/27/18 09:07 Dose: 0.5 mcg Cholecalciferol (Vitamin D 5,000 Iu Cap) 5,000 unit PO DAILY JL Stop: 09/25/18 08:01 Last Admin: 08/27/18 09:09 Dose: 5,000 unit Clopidogrel Bisulfate (Plavix) 75 mg PO DAILY JL Stop: 09/20/18 08:01 Last Admin: 08/27/18 09:07 Dose: 75 mg Clotrimazole (Gyne-Lotrimin 1% Vaginal Cream) 1 appl VAG BEDTIME JL Stop: 08/29/18 21:01 Last Admin: 08/26/18 20:42 Dose: 1 appl Cyanocobalamin (Vitamin B-12) 1,000 mcg PO DAILY JL Stop: 09/20/18 10:01 Last Admin: 08/27/18 09:08 Dose: 1,000 mcg Dextrose (Dextrose 50% Syringe) 12.5 gm IV PRN PRN; Protocol PRN Reason: HYPOGLYCEMIA Stop: 09/19/18 17:20 Epoetin Monty (Epogen) 10,000 unit SQ MO,FR [facility] Stop: 09/26/18 17:01 Last Admin: 08/27/18 17:10 Dose: 10,000 unit Folic Acid (Folic Acid) 1 mg PO DAILY [facility] Stop: 09/20/18 08:01 Last Admin: 08/27/18 09:08 Dose: 1 mg Glucagon (Glucagen) 1 mg IM 1X PRN; Protocol PRN Reason: HYPOGLYCEMIA Stop: 09/19/18 17:20 Insulin Glargine (Lantus) 5 units SQ DAILY WITH BREAKFAST [facility] Stop: 09/26/18 08:01 Last Admin: 08/27/18 07:51 Dose: 5 units Insulin Human Regular (Novolin -R) 0 unit SQ ACHS [facility]; Protocol Stop: 09/19/18 21:01 Last Admin: 08/27/18 16:30 Dose: Not Given Ipratropium [place] (Atrovent Neb) 0.5 mg NEB Q6HP PRN PRN Reason: SHORTNESS OF BREATH Stop: 09/20/18 09:48 Lorazepam (Ativan) 0.5 mg PO DAILY PRN PRN Reason: ANXIETY Stop: 09/20/18 08:01 Metoprolol Tartrate (Lopressor) 25 mg PO BID 6AM 6PM [facility] Stop: 09/19/18 18:01 Last Admin: 08/27/18 17:06 Dose: 25 mg Nitroglycerin (Nitrostat) 0.4 mg SL UD PRN PRN Reason: Pain scale 2-4 (Mild) Stop: 09/19/18 17:00 Nutritional Formula (Promod Liquid Protein) 30 ml PO BID [facility] Stop: 09/20/18 20:01 Last Admin: 08/27/18 08:00 Dose: Not Given Ondansetron HCl (Zofran) 4 mg PO Q4H PRN PRN Reason: NAUSEA / VOMITING Stop: 09/26/18 13:51 Last Admin: 08/27/18 17:06 Dose: 4 mg Oxymetazoline HCl (Afrin) 2 appl ZULEIMA BID PRN PRN Reason: NASAL CONGESTION Stop: 09/19/18 17:00 Pantoprazole Sodium (Protonix Tab) 40 mg PO ACB [facility]; Protocol Stop: 09/20/18 07:31 Last Admin: 08/27/18 07:10 Dose: 40 mg Senna/Docusate Sodium (Senokot-S) 2 tab PO BEDTIME [facility] Stop: 09/20/18 21:01 Last Admin: 08/26/18 20:46 Dose: Not Given Thiamine HCl (Vitamin B-1) 100 mg PO DAILY [facility] Stop: 09/20/18 08:01 Last Admin: 08/27/18 09:07 Dose: 100 mg Lab Results (last 24 hrs) 08/27/18 19:20: Urine Color Yellow, Urine Appearance Clear, Urine pH 5.5, Ur Specific [place] 1.010, Urine Ketones Negative, Urine Blood Negative, Urine Nitrite Negative, Urine Bilirubin Negative, Urine Urobilinogen 0.2, Ur Leukocyte Esterase 1+ H, Urine Glucose Negative, Urine Total Protein Negative 08/27/18 16:57: POC Glucose 178 H 08/27/18 11:22: POC Glucose 201 H 08/27/18 07:14: POC Glucose 165 H 08/27/18 05:43: Hemoglobin A1c 6.0 08/27/18 05:43: Sodium 140, Potassium 4.2, Chloride 103, Carbon Dioxide 30, BUN 51 H, Creatinine 2.08 H, Estimated GFR 23 L, Glucose 134 H, Calcium 8.6 08/27/18 05:43: WBC 3.2 L D, RBC 3.37 L, Hgb 10.8 L, Hct 33.4 L, MCV 99.0, MCH 32.1, MCHC 32.4, RDW 17.3 H, Plt Count 199, MPV 8.2, Neutrophils % 43.9, Lymphocytes % 26.6, Monocytes % 16.9 H, Eosinophils % 11.2 H, Basophils % 1.4 H , Absolute Neutrophils 1.4 L, Absolute Lymphocytes 0.9, Absolute Monocytes 0.5, Absolute Eosinophils 0.4, Absolute Basophils 0.0, Anisocytosis 1+, Morphology Comment Noted 08/26/18 20:20: POC Glucose 237 H Assessment/ Plan: Nephrology. Patient reports fatigue and chills today. No fever. CPS stable without CP or SOB. No acute events overnight. Vitals, medications, blood work and imaging reviewed in the chart. General: In no apparent distress, Oriented x3, Cooperative HEENT: Atraumatic Neck: Supple Respiratory: Clear to auscultation bilaterally Cardiovascular: Regular rate/rhythm, Edema Gastrointestinal: Soft and benign, Non-distended Musculoskeletal: No clubbing, No contractures Integumentary: No rashes, No cyanosis Neurological: Normal speech Blood work reviewed in the chart. Cr 2.74 Imagings Data: EXAM DESCRIPTION: VAS - Abdomen Pelvis Scan - 01/31/2017 9:53 am CLINICAL HISTORY: I65.21, N18.3, I25.10 COMPARISON: None. FINDINGS: The bilateral kidneys are normal in size, the right measuring 9.1 x 4.7 x 4.0 cm and the left measuring 9.7 x 4.5 x 4.4 cm. Aortic velocity: 75 cm/second Right proximal renal artery: 77 cm/second Right mid renal artery: 97 cm/second Right distal renal artery: 43 cm/second Right renal arcuate artery resistive index: 0.4 Right renal artery / aorta ratio: 1.3. Left proximal renal artery: 71 cm/second Left mid renal artery: 58 cm/second Left distal renal artery: 55 cm/second Left renal arcuate artery resistive index: 1.0 Left renal artery/aorta ratio: 0.9 Normal waveforms demonstrated within the bilateral renal arteries. IMPRESSION: No evidence of hemodynamically significant stenosis within the bilateral renal arteries. Conclusions/Impression: A/ OTIS recently requiring dialysis has improved. CKD III but her new baseline may be CKD IV. Proteinuria. DM II with CKD and Polyneuropathy. HTN with CKD/ CHF. ROLDAN. Diastolic CHF, chronic. Anemia in chronic illness. GREGORY/ Secondary HyperPTH. CAD/ PAD. Moderate malnutrition. P/ Continue current POC and Medications. CXR today. Check UA. Blood Cx as needed. Maintain nutrition. No NSAIDs. AM Labs PRN. Daily weight. PT/ OT as tolerated.
[2018-08-27 20:41] LABS: Urine Bacteria <20 /HPF (<20); Urine RBC <5 /HPF (NONE SEEN)
[2018-08-27 20:42] LABS: Urine Culture Reflex Order NOT NEEDED
[2018-08-27] MEDS: ATORVASTATIN 40 MG TAB PO SCH (20:46)
[2018-08-27] MEDS: DOCUSATE NA/SENNA CONC 1 TAB PO SCH (20:47)
[2018-08-27] MEDS: CLOTRIMAZOLE 1% VAG SCH (21:00)
[2018-08-28] MEDS: METOPROLOL TAR 25 MG TAB PO SCH ×2 (05:30→17:09)
[2018-08-28] MEDS: INSULIN GLARGINE 100 UNITS/ML SQ SCH (07:22)
[2018-08-28] MEDS: CLOPIDOGREL 75 MG TABLET PO SCH (07:23)
[2018-08-28] MEDS: ONDANSETRON 4 MG (ODT) TAB PO PRN ×2 (07:23→21:28)
[2018-08-28] MEDS: CALCITROL 0.25 MCG CAP PO SCH (07:23)
[2018-08-28] MEDS: BUMETANIDE 1 MG TABLET PO SCH ×2 (07:23→17:09)
[2018-08-28] MEDS: THIAMINE HCL 100 MG TABLET PO SCH (07:23)
[2018-08-28] MEDS: PROMOD 30 ML DOSE PO SCH ×3 (07:23→20:00)
[2018-08-28] MEDS: CYANOCOBALAMIN 1,000 MCG TAB PO SCH (07:23)
[2018-08-28] MEDS: FOLIC ACID 1 MG TABLET PO SCH (07:23)
[2018-08-28] MEDS: PANTOPRAZOLE 40MG TABLET PO SCH (07:23)
[2018-08-28] MEDS: AMIODARONE HCL 200 MG TAB PO SCH (07:24)
[2018-08-28] MEDS: VITAMIN D 5,000 UNIT CAP PO SCH (07:24)
[2018-08-28] MEDS: INSULIN -REGULAR HUMAN 50 UNIT/0.5 ML ML SQ SCH ×4 (07:24→21:00)
[2018-08-28] MEDS: APIXABAN 2.5 MG TABLET PO SCH ×2 (07:24→21:28)
--- NOTE | 2018-08-28 12:01 | PN ---
Date of Progress Note: 08/27/2018 Subjective: Ms. Gonzalez has been followed by me in the rehab department for multiple medical proble ms including CHF and CAD status post recent stent, left groin wound after a balloon pump insertion, h ypertension and dyslipidemia, as well as atrial fibrillation. Ms. Gonzalez has continued to improve from a physical standpoint. She is denying any chest pain or shortness of breath. Does not have any edema or rales. She remains in sinus rhythm. Her last creatinine was 2.08. Dr. King is followi ng up on that. We will plan to continue her medical regimen, hopefully she will go home this week. I will plan to do an echocardiogram on her about 3 months to see what her ejection fraction is. I am hoping to have her stop wearing her LifeVest in the next month or 2 depending what we see as far as her arrhythmias. Continue her medical regimen for now as is. I will sign off her case for now and I will see her in the office after she gets discharged. ARTEMIO Voice ID: [id number] Report ID: [id number]
--- NOTE | 2018-08-28 13:22 | FAST ---
SHIFT START DATE/TIME: 08/28/2018 07:00 (CDT) SHIFT END DATE/TIME: 08/28/2018 19:00 (CDT) NAME HENRIQUE ARECHIGA DATE OF : 1940 DATE OF ADMISSION: 08/20/2018 16:21 (CDT) PHONE: AGE: 78 N# [id number] GENDER: Female ENCOUNTER PHYSICIAN: Dr. Rober Keller M.D. ADMISSION DIAGNOSIS: - Cardiac 09 - Cardiac Disorders () NSTEMI. EATING: EATING - STEP 1: Does the patient require the assistance of a person or device, or need extra time when eating? Yes. EATING - STEP 2: Does the patient require the assistance of a helper? No, patient only requires an assistive device, O R s/he takes more than reasonable time to eat, OR there is a safety concern, OR s/he requires modifie d food consistency EATING - SCORE: 6-FAHAD GROOMING: Comb/brush hair Oral care Wash, rinse, and dry face Wash, rinse, and dry hands GROOMING - STEP 1: Does the patient require the assistance of a person or device, or need extra time when grooming? Yes. GROOMING - STEP 2: Does the patient require the assistance of a helper? No. The patient only requires an assistive devic e, OR takes more than reasonable time to groom, OR there is a concern for safety as the patient groom s GROOMING - SCORE: 6-FAHAD BATHING: Activity did not occur on this shift BATHING - SCORE: 0-UNK DRESSING - UPPER BODY: Activity did not occur on this shift ARTICLES SCORE Total number of steps: 0 DRESSING - UPPER BODY - SCORE: 0-UNK DRESSING - LOWER BODY: Activity did not occur on this shift ARTICLES SCORE Total number of steps: 0 DRESSING - LOWER BODY - SCORE: 0-UNK TOILETING: TOILETING - STEP 1: Does the patient require the assistance of a person or device, or need extra time with toileting? Yes . TOILETING - STEP 2: Does the patient require the assistance of a helper? Yes. TOILETING - STEP 3: How much assistance does the patient require from the helper? Hands-on assistance from the helper TOILETING - STEP 4: Of the 3 tasks: 1) Adjusting clothing prior to use, 2) Cleansing of perineal area, 3) Adjusting clot jenniffer after use; How many tasks does the patient perform WITHOUT assistance of the helper? Three tasks with steadying assistance from the helper TOILETING - SCORE: 4-MIN BLADDER MANAGEMENT: BLADDER MANAGEMENT - STEP 1: Does the patient control the bladder completely and intentionally without equipment or devices or med ications, and is always continent? No. BLADDER MANAGEMENT - STEP 2: Does the patient require the assistance of a helper? No, patient requires and independently uses an a ssistive device, such as a urinal, bedpan, bedside commode, catheter, absorbent pad, or collecting de vice BLADDER MANAGEMENT - SCORE: 6-FAHAD BOWEL MANAGEMENT: Activity did not occur on this shift BOWEL MANAGEMENT - SCORE: 7-IND TRANSFERS: BED, CHAIR, WHEELCHAIR: TRANSFERS: BED, CHAIR, WHEELCHAIR - STEP 1: Does the patient require assistance of a person or device, or need extra time with bed, chair, or whe elchair transfers? Yes. TRANSFERS: BED, CHAIR, WHEELCHAIR - STEP 2: Does the patient require the assistance of a helper? Yes. TRANSFERS: BED, CHAIR, WHEELCHAIR - STEP 3: How much assistance does the patient require from the helper? Steadying/guiding assistance TRANSFERS: BED, CHAIR, WHEELCHAIR - SCORE: 4-MIN TRANSFERS: TOILET: TRANSFERS: TOILET - STEP 1: Does the patient require the assistance of a person or device, or need extra time with toilet transfe rs? Yes. TRANSFERS: TOILET - STEP 2: Does the patient require the assistance of a helper? Yes. TRANSFERS: TOILET - STEP 3: How much assistance does the patient require from the helper? Only supervision, cuing, coaxing, OR he lp to set out transfer equipment or to lock brakes and/or lift foot rests TRANSFERS: TOILET - SCORE: 5-SUP TRANSFERS: SHOWER: Activity did not occur on this shift TRANSFERS: SHOWER - SCORE: 0-UNK TRANSFERS: TUB: Activity did not occur on this shift TRANSFERS: TUB - SCORE: 0-UNK LOCOMOTION: WALK: Activity did not occur on this shift LOCOMOTION: WALK - SCORE: 0-UNK LOCOMOTION: WHEELCHAIR: Activity did not occur on this shift LOCOMOTION: WHEELCHAIR - SCORE: 0-UNK COMPREHENSION: COMPREHENSION: TYPE: Both COMPREHENSION - STEP 1: Does the patient require help from a person or device, or need extra time to understand complex and a bstract ideas (such as current events, finances, discharge planning, medical issues, relationships, e tc)? No. COMPREHENSION - STEP 2: Does the patient need extra time, require an assistive device (such as glasses for visual comprehensi on or a hearing aid for auditory comprehension) or does s/he have mild difficulty understanding compl ex and abstract information? Yes. COMPREHENSION - SCORE: 6-FAHAD EXPRESSION EXPRESSION: TYPE: Both EXPRESSION - STEP 1: Does the patient require help from a person or device, or need extra time expressing complex and abst ract ideas (such as current events, finances, discharge planning, medical issues, relationships, etc) ? No. EXPRESSION - STEP 2: Does the patient need extra time, require an assistive device (such as augmentive communication syste m or a communication board), OR does s/he have mild difficulty expressing complex and abstract ideas (including mild dysarthria or mild word-find problems)? Yes. EXPRESSION - SCORE: 6-FAHAD SOCIAL INTERACTION: SOCIAL INTERACTION - STEP 1: Does the patient require a helper to interact with others in social and therapeutic situations? No. SOCIAL INTERACTION - STEP 2: Does the patient need extra time in social situations, OR does s/he interact with staff, other patien ts, and family members ONLY in structured environments, OR does s/he require medication for social in teraction? Yes, patient needs extra time SOCIAL INTERACTION - SCORE: 6-FAHAD PROBLEM SOLVING: PROBLEM SOLVING - STEP 1: Does the patient need help from a person or device, or need extra time to solve complex problems such as managing a checking account or confronting interpersonal problems? No. PROBLEM SOLVING - STEP 2: Does the patient require extra time to make decisions or solve problems, OR does s/he have slight dif ficulty reading, initiating, or self-correcting in unfamiliar situations? Yes, patient needs extra ti me. PROBLEM SOLVING - SCORE: 6-FAHAD MEMORY: MEMORY - STEP 1: Does the patient need help from a person or device, or need extra time to remember frequently encount ered people, daily routines, and executing requests? No. MEMORY - STEP 2: Does the patient have slight difficulty recognizing frequently encountered people, daily routines, or executing requests without the need for repetition or using self-initiated or environmental cues to remember? Yes. MEMORY - SCORE: 6-FAHAD SIGNATURE PANEL: The following modified sections: Eating - Score, Grooming - Score, Bathing - Score, Dressing - Upper Body - Score, Dressing - Lower Body - Score, Toileting - Score, Bladder Management - Score, Bowel Man agement - Score, Transfers: Bed, Chair, Wheelchair - Score, Transfers: Toilet - Score, Transfers: Dorothea wer - Score, Transfers: Tub - Score, Locomotion: Walk - Score, Locomotion: Wheelchair - Score, Compre hension - Score, Expression - Score, Social Interaction - Score, Problem Solving - Score, Memory - Sc ore were [electronically] signed by Hector Macias on MonAug 28 2018 13:21:51 GMT-0500 (Central Daylight Time)
[2018-08-28] MEDS ORDERED: BISACODYL 10 MG RECTAL SUPP PR PRN (14:23)
[2018-08-28] MEDS ORDERED: FLEET ENEMA ADULT PR PRN (14:23)
--- NOTE | 2018-08-28 15:11 | FAST ---
ENCOUNTER DATE AND TIME: 08/23/2018 08:00 (CDT) NAME HENRIQUE ARECHIGA DATE OF : 1940 DATE OF ADMISSION: 08/20/2018 16:21 (CDT) PHONE: AGE: 78 SSN# [id number] GENDER: Female ENCOUNTER PHYSICIAN: Dr. Rober Keller M.D. ADMISSION DIAGNOSIS: - Cardiac 09 - Cardiac Disorders () NSTEMI. EATING: Activity did not occur on this shift EATING - SCORE: 0-UNK GROOMING: Activity did not occur on this shift GROOMING - SCORE: 0-UNK BATHING: Activity did not occur on this shift BATHING - SCORE: 0-UNK DRESSING - UPPER BODY: Activity did not occur on this shift Patient is not dressing in public clothing ARTICLES SCORE Total number of steps: 0 DRESSING - UPPER BODY - SCORE: 0-UNK DRESSING - LOWER BODY: Activity did not occur on this shift Patient is not dressing in public clothing ARTICLES SCORE Total number of steps: 0 DRESSING - LOWER BODY - SCORE: 0-UNK TOILETING: Activity did not occur on this shift TOILETING - SCORE: 0-UNK BLADDER MANAGEMENT: Activity did not occur on this shift BLADDER MANAGEMENT - SCORE: 7-IND BOWEL MANAGEMENT: Activity did not occur on this shift BOWEL MANAGEMENT - SCORE: 7-IND TRANSFERS: BED, CHAIR, WHEELCHAIR: TRANSFERS: BED, CHAIR, WHEELCHAIR - STEP 1: Does the patient require assistance of a person or device, or need extra time with bed, chair, or whe elchair transfers? Yes. TRANSFERS: BED, CHAIR, WHEELCHAIR - STEP 2: Does the patient require the assistance of a helper? No. Patient only requires an assistive device fo r bed, chair, wheelchair transfers such as a sliding board, grab bar, or brace, OR s/he takes more th an reasonable time, OR there is a safety concern when s/he performs the transfers TRANSFERS: BED, CHAIR, WHEELCHAIR - SCORE: 6-FAHAD TRANSFERS: TOILET: Activity did not occur on this shift TRANSFERS: TOILET - SCORE: 0-UNK TRANSFERS: SHOWER: Activity did not occur on this shift TRANSFERS: SHOWER - SCORE: 0-UNK TRANSFERS: TUB: Activity did not occur on this shift TRANSFERS: TUB - SCORE: 0-UNK LOCOMOTION: WALK: LOCOMOTION: WALK - STEP 1: Does the patient need help from a person or device, or need extra time to walk 150 feet? Yes. LOCOMOTION: WALK - STEP 2: How much assistance does the patient require to walk a minimum of 150 feet? Only supervision, cuing, or coaxing LOCOMOTION: WALK - SCORE: 5-SUP LOCOMOTION: WHEELCHAIR: Activity did not occur on this shift LOCOMOTION: WHEELCHAIR - SCORE: 0-UNK LOCOMOTION: STAIRS: LOCOMOTION: STAIRS - STEP 1: Does the patient need help to go up and down 12 to 14 stairs? Yes. LOCOMOTION: STAIRS - STEP 2: How much assistance does the patient need from the helper to go a minimum of 12 to 14 stairs? The pat ient goes less than 12 stairs, but at least 4 stairs LOCOMOTION: STAIRS - SCORE: 2-MAX COMPREHENSION: COMPREHENSION - SCORE: 0-UNK EXPRESSION EXPRESSION - SCORE: 0-UNK SOCIAL INTERACTION: SOCIAL INTERACTION - SCORE: 0-UNK PROBLEM SOLVING: PROBLEM SOLVING - SCORE: 0-UNK MEMORY: MEMORY - SCORE: 0-UNK SIGNATURE PANEL: The following modified sections: Transfers: Bed, Chair, Wheelchair - Score, Transfers: Toilet - Score , Locomotion: Walk - Score, Locomotion: Wheelchair - Score, Locomotion: Stairs - Score were [alfonso reyes] signed by Edwin Glez PTA on MonAug 28 2018 15:11:38 GMT-0500 (Central Daylight Time)
--- NOTE | 2018-08-28 15:45 | FAST ---
ENCOUNTER DATE AND TIME: 08/28/2018 08:00 (CDT) NAME HENRIQUE ARECHIGA DATE OF : 1940 DATE OF ADMISSION: 08/20/2018 16:21 (CDT) PHONE: AGE: 78 SSN# [id number] GENDER: Female ENCOUNTER PHYSICIAN: Dr. Rober Keller M.D. ADMISSION DIAGNOSIS: - Cardiac 09 - Cardiac Disorders () NSTEMI. EATING: Activity did not occur on this shift EATING - SCORE: 0-UNK GROOMING: Activity did not occur on this shift GROOMING - SCORE: 0-UNK BATHING: Activity did not occur on this shift BATHING - SCORE: 0-UNK DRESSING - UPPER BODY: Activity did not occur on this shift Patient is not dressing in public clothing ARTICLES SCORE Total number of steps: 0 DRESSING - UPPER BODY - SCORE: 0-UNK DRESSING - LOWER BODY: Activity did not occur on this shift Patient is not dressing in public clothing ARTICLES SCORE Total number of steps: 0 DRESSING - LOWER BODY - SCORE: 0-UNK TOILETING: Activity did not occur on this shift TOILETING - SCORE: 0-UNK BLADDER MANAGEMENT: Activity did not occur on this shift BLADDER MANAGEMENT - SCORE: 7-IND BOWEL MANAGEMENT: Activity did not occur on this shift BOWEL MANAGEMENT - SCORE: 7-IND TRANSFERS: BED, CHAIR, WHEELCHAIR: TRANSFERS: BED, CHAIR, WHEELCHAIR - STEP 1: Does the patient require assistance of a person or device, or need extra time with bed, chair, or whe elchair transfers? Yes. TRANSFERS: BED, CHAIR, WHEELCHAIR - STEP 2: Does the patient require the assistance of a helper? No. Patient only requires an assistive device fo r bed, chair, wheelchair transfers such as a sliding board, grab bar, or brace, OR s/he takes more th an reasonable time, OR there is a safety concern when s/he performs the transfers TRANSFERS: BED, CHAIR, WHEELCHAIR - SCORE: 6-FAHAD TRANSFERS: TOILET: Activity did not occur on this shift TRANSFERS: TOILET - SCORE: 0-UNK TRANSFERS: SHOWER: Activity did not occur on this shift TRANSFERS: SHOWER - SCORE: 0-UNK TRANSFERS: TUB: Activity did not occur on this shift TRANSFERS: TUB - SCORE: 0-UNK LOCOMOTION: WALK: LOCOMOTION: WALK - STEP 1: Does the patient need help from a person or device, or need extra time to walk 150 feet? Yes. LOCOMOTION: WALK - STEP 2: How much assistance does the patient require to walk a minimum of 150 feet? Only supervision, cuing, or coaxing LOCOMOTION: WALK - SCORE: 5-SUP LOCOMOTION: WHEELCHAIR: LOCOMOTION: WHEELCHAIR - STEP 1: Does the patient need help to go 150 feet in a wheelchair? Yes. LOCOMOTION: WHEELCHAIR - STEP 2: How much assistance does the patient need from the helper? Only supervision, cuing, or coaxing LOCOMOTION: WHEELCHAIR - SCORE: 5-SUP LOCOMOTION: STAIRS: Activity did not occur on this shift LOCOMOTION: STAIRS - SCORE: 0-UNK COMPREHENSION: COMPREHENSION - SCORE: 0-UNK EXPRESSION EXPRESSION - SCORE: 0-UNK SOCIAL INTERACTION: SOCIAL INTERACTION - SCORE: 0-UNK PROBLEM SOLVING: PROBLEM SOLVING - SCORE: 0-UNK MEMORY: MEMORY - SCORE: 0-UNK SIGNATURE PANEL: The following modified sections: Transfers: Bed, Chair, Wheelchair - Score, Transfers: Toilet - Score , Locomotion: Walk - Score, Locomotion: Wheelchair - Score, Locomotion: Stairs - Score were [alfonso reyes] signed by Edwin Glez PTA on MonAug 28 2018 15:44:06 GMT-0500 (Central Daylight Time)
--- NOTE | 2018-08-28 19:10 | R.PN ---
ENCOUNTER DATE AND TIME: 08/28/2018 19:08 (CDT) NAME HENRIQUE ARECHIGA DATE OF : 1940 DATE OF ADMISSION: 08/20/2018 16:21 (CDT) NSTEMICHIEF COMPLAINT: Debility and NSTSMI SUBJECTIVE: Pt denied any Shortness of Breath. Pt denied any depression. Hgb 10.8, WBC 3.2, glucose 134 to 201, Hgb A1c 6.0. Chest x-ray no acute changes. Ambulated 400' with standby assistance using a rolling walker. Up and down 10 steps with contact guar d assistance. VITAL SIGNS Temperature: 97.4 F SBP/DBP: 131/65 Pulse: 66 Resp: 14 MEDICATION ALLERGIES: Heparin analogues iodine and iodide containing products morphine vicodin codeine levaquin phenergan reglan benadryl ENVIRONMENTAL ALLERGIES: - Substance Allergies None Known - Other Allergies None Known NURSING: - Shower allowing shower ACTIVITIES OOB only with supervision THERAPIES: - Dietary and Nutrition Adequate Nutrition. Nutritional Education. Nutritional Supplements. PHYSICAL EXAM - Gen Alert and awake Lying in bed No apparent distress Oriented to: person, time, and place - Skin No skin breakdown. No abnormalities - Eyes No abnormalities - ENMT No abnormalities - Neck No abnormalities - CVS RRR - Chest No abnormalities - Abd Soft - GI + bowel sounds Deferred - No abnormalities - Ext No significant edema. - MSK 4/5 weakness in both lower extremities. - Neuro No focal deficits - Psych No abnormalities ASSESSMENT: Pt. is a 78 yo Right-handed white female.On 07/31/[address] [facility] with diagnosis NSTEMI.Her impairment category is Cardiac 09 - Cardiac Disorders (09).Pre-mor bidly, Pt. was independent/mod-I in Self-Care, Sphincter Control, Transfers Control, Communication, S ocial Cognition, and Locomotion; and she had good Sphincter Control.Currently, she has deficits of Tr ansfers Control, Communication, Social Cognition, Endurance, Balance, Safety Awareness, Self-Care, an d Locomotion.Pt. is now referred to [facility] for acute in-patient rehabilita tion in order to maximize patient's functional independence in activities of daily living, strength, ROM, and mobility.- Rehab Goal Patient has realistic goal of being discharged at assistance level 6-Tracie to reside at Home with Fam giovanna/Relatives. MDM/PLAN: - Physical Therapy Gait dysfunction - to improve, our physical therapists will perform initial evaluation of pt's statu s upon admission and devise an individualized program for Gait Training, and Wheel Chair mobility Inability to transfer - to improve, our physical therapists will perform initial evaluation of pt's status upon admission and devise an individualized program for Bed mobility Need for home safety evaluation - to improve, our physical therapists will perform initial evaluatio n of pt's status upon admission and devise an individualized program for Home Evaluation Need in caregiver upon discharge - to improve, our physical therapists will perform initial evaluati on of pt's status upon admission and devise an individualized program for Caregiver Training New precaution - to improve, our physical therapists will perform initial evaluation of pt's status upon admission and devise an individualized program for Patient precaution education Edema - to improve, our physical therapists will perform initial evaluation of pt's status upon admi ssion and devise an individualized program for Elevation Training, and Lymphedema Therapy Poor balance - to improve, our physical therapists will perform initial evaluation of pt's status up on admission and devise an individualized program for Balance Training Poor endurance - to improve, our physical therapists will perform initial evaluation of pt's status upon admission and devise an individualized program for Endurance Training Weakness - to improve, our physical therapists will perform initial evaluation of pt's status upon a dmission and devise an individualized program for Aquatic Therapy, Neuromuscular Reeducation, and Str engthening Achieving independence - to improve, our physical therapists will perform initial evaluation of pt's status upon admission and devise an individualized program for Community Reintegration Activities - Occupational Therapy ADL deficits - to improve, our occupation therapists will perform initial evaluation of pt's status upon admission and devise an individualized program for Bathing, Bed mobility, Community Reintegratio n, Cooking, Dressing, Eating, Fine Motor Skills, Grooming, Homemaking, Kitchen Mobility, Laundry, Pat ient Education, Safety Awareness, Splinting - Positioning, Transfers(Toilet, Tub, Shower), and Wheel Chair Management Cognitive deficits - to improve, our occupation therapists will perform initial evaluation of pt's s tatus upon admission and devise an individualized program for Cognition - orientation Need for menagerie caretaker - to improve, our occupation therapists will perform initial evaluation of pt's status upon admission and devise an individualized program for Caregiver Training Weakness - to improve, our occupation therapists will perform initial evaluation of pt's status upon admission and devise an individualized program for Aquatic Therapy, Balance, Endurance, UE ROM, and UE strengthening - Other See attached MAR (Medication Administration Record) [id number].pdf - Diet Type Continue ADA 1800 jesús - Diet - Liquid Texture Continue Regular - Tube Feed Continue N/A - Diet - Solid Texture Continue Regular - Shower allowing shower FUNCTIONAL STATUS: UPDATED AT WEEKLY TEAM CONFERENCE - Bladder Same accident frequency: 7-Ind - No accidents in the past 7 days - Bowel Same accident frequency: 7-Ind - No accidents in the past 7 days - Walking Same score based on distance walked: 0(N/A) FUNCTIONAL STATUS: - Self-Care A. Eating Ind B. Grooming sup C. Bathing Aj D. Dressing - Upper sup E. Dressing - Lower modA F. Toileting modA - Sphincter Control G: Bladder control Ind H: Bowel control Ind - Transfers Control I. Bed/Chair/Wheelchair CGA J. Toilet CGA K. Tub/Shower CGA - Locomotion L. Walk/Wheelchair (B) maxA M. Stairs ADNO - Communication N. Comprehension (B) sup O. Expression (B) sup - Social Cognition P. Social Interaction sup Q. Problem Solving sup R. Memory sup - Endurance Poor - Balance Fair - Safety Awareness Fair CURRENT FUNC. DEFICITS: Transfers Control, Communication, Social Cognition, Endurance, Balance, Safety Awareness, Self-Care, and Locomotion SIGNATURE PANEL: (CDT)
[2018-08-28] MEDS: DOCUSATE NA/SENNA CONC 1 TAB PO SCH ×2 (21:00→21:28)
[2018-08-28] MEDS: ATORVASTATIN 40 MG TAB PO SCH (21:28)
[2018-08-28] MEDS: CLOTRIMAZOLE 1% VAG SCH (21:29)
--- NOTE | 2018-08-28 21:43 | P.PN ---
Date of Service: 08/28/18 Vital Signs Temp Pulse Resp BP Pulse Ox 97.4 F 66 16 131/65 98 08/28/18 18:59 08/28/18 18:59 08/28/18 18:59 08/28/18 18:59 08/28/18 18:59 Medications Acetaminophen (Tylenol -Extra Strength) 1,000 mg PO Q6H PRN PRN Reason: Pain scale 2-4 (Mild) Stop: 09/19/18 17:01 Last Admin: 08/23/18 10:35 Dose: 1,000 mg Amiodarone HCl (Cordarone Tab) 200 mg PO DAILY JL Stop: 09/20/18 08:01 Last Admin: 08/28/18 07:24 Dose: 200 mg Apixaban (Eliquis) 2.5 mg PO BID JL Stop: 09/22/18 08:01 Last Admin: 08/28/18 21:28 Dose: 2.5 mg Atorvastatin Calcium (Lipitor) 80 mg PO BEDTIME JL Stop: 09/26/18 21:01 Last Admin: 08/28/18 21:28 Dose: 80 mg Bisacodyl (Dulcolax) 10 mg [place] DAILY PRN PRN Reason: CONSTIPATION Stop: 09/27/18 14:24 Bumetanide (Bumex) 0.5 mg PO BID@0800,1700 JL Stop: 09/20/18 08:01 Last Admin: 08/28/18 17:09 Dose: 0.5 mg Calcitriol (Rocaltrol) 0.5 mcg PO DAILY JL Stop: 09/25/18 08:01 Last Admin: 08/28/18 07:23 Dose: 0.5 mcg Cholecalciferol (Vitamin D 5,000 Iu Cap) 5,000 unit PO DAILY JL Stop: 09/25/18 08:01 Last Admin: 08/28/18 07:24 Dose: 5,000 unit Clopidogrel Bisulfate (Plavix) 75 mg PO DAILY JL Stop: 09/20/18 08:01 Last Admin: 08/28/18 07:23 Dose: 75 mg Clotrimazole (Gyne-Lotrimin 1% Vaginal Cream) 1 appl VAG BEDTIME JL Stop: 08/29/18 21:01 Last Admin: 08/28/18 21:29 Dose: 1 appl Cyanocobalamin (Vitamin B-12) 1,000 mcg PO DAILY [facility] Stop: 09/20/18 10:01 Last Admin: 08/28/18 07:23 Dose: 1,000 mcg Dextrose (Dextrose 50% Syringe) 12.5 gm IV PRN PRN; Protocol PRN Reason: HYPOGLYCEMIA Stop: 09/19/18 17:20 Epoetin Monty (Epogen) 10,000 unit SQ MO,FR [facility] Stop: 09/26/18 17:01 Last Admin: 08/27/18 17:10 Dose: 10,000 unit Folic Acid (Folic Acid) 1 mg PO DAILY [facility] Stop: 09/20/18 08:01 Last Admin: 08/28/18 07:23 Dose: 1 mg Glucagon (Glucagen) 1 mg IM 1X PRN; Protocol PRN Reason: HYPOGLYCEMIA Stop: 09/19/18 17:20 Insulin Glargine (Lantus) 5 units SQ DAILY WITH BREAKFAST [facility] Stop: 09/26/18 08:01 Last Admin: 08/28/18 07:22 Dose: 5 units Insulin Human Regular (Novolin -R) 0 unit SQ ACHS [facility]; Protocol Stop: 09/19/18 21:01 Last Admin: 08/28/18 21:00 Dose: Not Given Ipratropium [place] (Atrovent Neb) 0.5 mg NEB Q6HP PRN PRN Reason: SHORTNESS OF BREATH Stop: 09/20/18 09:48 Lorazepam (Ativan) 0.5 mg PO DAILY PRN PRN Reason: ANXIETY Stop: 09/20/18 08:01 Metoprolol Tartrate (Lopressor) 25 mg PO BID 6AM 6PM [facility] Stop: 09/19/18 18:01 Last Admin: 08/28/18 17:09 Dose: 25 mg Nitroglycerin (Nitrostat) 0.4 mg SL UD PRN PRN Reason: Pain scale 2-4 (Mild) Stop: 09/19/18 17:00 Nutritional Formula (Promod Liquid Protein) 30 ml PO BID [facility] Stop: 09/20/18 20:01 Last Admin: 08/28/18 20:00 Dose: Not Given Ondansetron HCl (Zofran) 4 mg PO Q4H PRN PRN Reason: NAUSEA / VOMITING Stop: 09/26/18 13:51 Last Admin: 08/28/18 21:28 Dose: 4 mg Oxymetazoline HCl (Afrin) 2 appl ZULEIMA BID PRN PRN Reason: NASAL CONGESTION Stop: 09/19/18 17:00 Pantoprazole Sodium (Protonix Tab) 40 mg PO ACB JL; Protocol Stop: 09/20/18 07:31 Last Admin: 08/28/18 07:23 Dose: 40 mg Senna/Docusate Sodium (Senokot-S) 2 tab PO BEDTIME JL Stop: 09/20/18 21:01 Last Admin: 08/28/18 21:00 Dose: Not Given Sodium Biphosphate/Sodium Phosphate (Fleet Enema Adult) 133 ml [place] DAILY PRN PRN Reason: CONSTIPATION Stop: 09/27/18 14:24 Thiamine HCl (Vitamin B-1) 100 mg PO DAILY JL Stop: 09/20/18 08:01 Last Admin: 08/28/18 07:23 Dose: 100 mg Lab Results (last 24 hrs) 08/28/18 20:32: POC Glucose 187 H 08/28/18 16:51: POC Glucose 170 H 08/28/18 11:50: POC Glucose 234 H 08/28/18 07:10: POC Glucose 165 H Assessment/ Plan: Nephrology. Feeling better today. No F/C. No diaphoresis. CPS stable without CP or SOB. No acute events overnight. Vitals, medications, blood work and imaging reviewed in the chart. General: In no apparent distress, Oriented x3, Cooperative HEENT: Atraumatic Neck: Supple Respiratory: Clear to auscultation bilaterally Cardiovascular: Regular rate/rhythm, Edema Gastrointestinal: Soft and benign, Non-distended Musculoskeletal: No clubbing, No contractures Integumentary: No rashes, No cyanosis Neurological: Normal speech Blood work reviewed in the chart. Cr 2.74 Imagings Data: EXAM DESCRIPTION: VAS - Abdomen Pelvis Scan - 01/31/2017 9:53 am CLINICAL HISTORY: I65.21, N18.3, I25.10 COMPARISON: None. FINDINGS: The bilateral kidneys are normal in size, the right measuring 9.1 x 4.7 x 4.0 cm and the left measuring 9.7 x 4.5 x 4.4 cm. Aortic velocity: 75 cm/second Right proximal renal artery: 77 cm/second Right mid renal artery: 97 cm/second Right distal renal artery: 43 cm/second Right renal arcuate artery resistive index: 0.4 Right renal artery / aorta ratio: 1.3. Left proximal renal artery: 71 cm/second Left mid renal artery: 58 cm/second Left distal renal artery: 55 cm/second Left renal arcuate artery resistive index: 1.0 Left renal artery/aorta ratio: 0.9 Normal waveforms demonstrated within the bilateral renal arteries. IMPRESSION: No evidence of hemodynamically significant stenosis within the bilateral renal arteries. Conclusions/Impression: A/ OTIS recently requiring dialysis has improved. CKD III but her new baseline may be CKD IV. Proteinuria. DM II with CKD and Polyneuropathy. HTN with CKD/ CHF. ROLDAN. Diastolic CHF, chronic. Anemia in chronic illness. GREGORY/ Secondary HyperPTH. CAD/ PAD. Moderate malnutrition. P/ Continue current POC and Medications. No change in medications at this time. Maintain nutrition. No NSAIDs. AM Labs PRN. Daily weight. PT/ OT as tolerated.
[2018-08-29] MEDS: METOPROLOL TAR 25 MG TAB PO SCH ×2 (06:04→16:58)
[2018-08-29] MEDS: PROMOD 30 ML DOSE PO SCH ×2 (08:00→20:00)
[2018-08-29] MEDS: PANTOPRAZOLE 40MG TABLET PO SCH ×2 (08:14→16:56)
[2018-08-29] MEDS: ONDANSETRON 4 MG (ODT) TAB PO PRN ×3 (08:14→16:55)
[2018-08-29] MEDS: CLOPIDOGREL 75 MG TABLET PO SCH (08:15)
[2018-08-29] MEDS: BUMETANIDE 1 MG TABLET PO SCH ×2 (08:15→16:58)
[2018-08-29] MEDS: CALCITROL 0.25 MCG CAP PO SCH (08:15)
[2018-08-29] MEDS: APIXABAN 2.5 MG TABLET PO SCH ×2 (08:15→20:33)
[2018-08-29] MEDS: CYANOCOBALAMIN 1,000 MCG TAB PO SCH (08:16)
[2018-08-29] MEDS: FOLIC ACID 1 MG TABLET PO SCH (08:16)
[2018-08-29] MEDS: AMIODARONE HCL 200 MG TAB PO SCH (08:16)
[2018-08-29] MEDS: VITAMIN D 5,000 UNIT CAP PO SCH (08:17)
[2018-08-29] MEDS: INSULIN GLARGINE 100 UNITS/ML SQ SCH (08:48)
[2018-08-29] MEDS: INSULIN -REGULAR HUMAN 50 UNIT/0.5 ML ML SQ SCH ×5 (08:51→21:59)
[2018-08-29] MEDS: THIAMINE HCL 100 MG TABLET PO SCH (10:48)
--- NOTE | 2018-08-29 12:27 | FAST ---
ENCOUNTER DATE AND TIME: 08/29/2018 08:00 (CDT) NAME HENRIQUE ARECHIGA DATE OF : 1940 DATE OF ADMISSION: 08/20/2018 16:21 (CDT) PHONE: AGE: 78 SSN# [id number] GENDER: Female ENCOUNTER PHYSICIAN: Dr. Rober Keller M.D. ADMISSION DIAGNOSIS: - Cardiac 09 - Cardiac Disorders () NSTEMI. EATING: Activity did not occur on this shift EATING - SCORE: 0-UNK GROOMING: Comb/brush hair Oral care Wash, rinse, and dry face Wash, rinse, and dry hands GROOMING - STEP 1: Does the patient require the assistance of a person or device, or need extra time when grooming? Yes. GROOMING - STEP 2: Does the patient require the assistance of a helper? No. The patient only requires an assistive devic e, OR takes more than reasonable time to groom, OR there is a concern for safety as the patient groom s GROOMING - SCORE: 6-FAHAD BATHING: Abdomen Buttocks Chest Left arm Left lower leg and foot Left upper leg Perineal area Right arm Right lower leg and foot Right upper leg BATHING - STEP 1: Does the patient require the assistance of a person or device, or need extra time when bathing? Yes. BATHING - STEP 2: Does the patient require the assistance of a helper? Yes. BATHING - STEP 3: How much assistance does the patient require from the helper? Only supervision, cuing, coaxing, instr uctions, encouragement BATHING - SCORE: 5-SUP DRESSING - UPPER BODY: Bra (three steps) T-shirt/pullover shirt (four steps) ARTICLES SCORE Total number of steps: 7 DRESSING - UPPER BODY - STEP 1: Does the patient require help from a person or device, or need extra time when dressing above the mickey st? Yes. DRESSING - UPPER BODY - STEP 2: Does the patient require the assistance of a helper? Yes. DRESSING - UPPER BODY - STEP 3: Does the helper touch the patient while dressing? Yes. DRESSING - UPPER BODY - STEP 4: How many of the total steps does the patient complete on his/her own? 6 DRESSING - UPPER BODY - SCORE: 4-MIN DRESSING - LOWER BODY: Elastic waist pants (three steps) Sock - Left foot (one step) Sock - Right foot (one step) Underwear (three steps) ARTICLES SCORE Total number of steps: 8 DRESSING - LOWER BODY - STEP 1: Does the patient require help from a person or device, or need extra time when dressing below the mickey st? Yes. DRESSING - LOWER BODY - STEP 2: Does the patient require the assistance of a helper? Yes. DRESSING - LOWER BODY - STEP 3: Does the helper touch the patient while dressing? No. DRESSING - LOWER BODY - SCORE: 5-SUP TOILETING: Activity did not occur on this shift TOILETING - SCORE: 0-UNK BLADDER MANAGEMENT: Activity did not occur on this shift BLADDER MANAGEMENT - SCORE: 7-IND BOWEL MANAGEMENT: Activity did not occur on this shift BOWEL MANAGEMENT - SCORE: 7-IND TRANSFERS: BED, CHAIR, WHEELCHAIR: Activity did not occur on this shift TRANSFERS: BED, CHAIR, WHEELCHAIR - SCORE: 0-UNK TRANSFERS: TOILET: Activity did not occur on this shift TRANSFERS: TOILET - SCORE: 0-UNK TRANSFERS: SHOWER: TRANSFERS: SHOWER - STEP 1: Does the patient require the assistance of a person or device, or need extra time with shower transfe rs? Yes. TRANSFERS: SHOWER - STEP 2: Does the patient require the assistance of a helper? Yes. TRANSFERS: SHOWER - STEP 3: How much assistance does the patient require from the helper? Only supervision, cuing, coaxing, or he lp to set out transfer equipment or to lock brakes and/or lift foot rests TRANSFERS: SHOWER - SCORE: 5-SUP TRANSFERS: TUB: Activity did not occur on this shift TRANSFERS: TUB - SCORE: 0-UNK LOCOMOTION: WALK: Activity did not occur on this shift LOCOMOTION: WALK - SCORE: 0-UNK LOCOMOTION: WHEELCHAIR: Activity did not occur on this shift LOCOMOTION: WHEELCHAIR - SCORE: 0-UNK LOCOMOTION: STAIRS: Activity did not occur on this shift LOCOMOTION: STAIRS - SCORE: 0-UNK COMPREHENSION: COMPREHENSION: TYPE: Visual COMPREHENSION - SCORE: 0-UNK EXPRESSION EXPRESSION: TYPE: Non-Vocal EXPRESSION - STEP 1: Does the patient require help from a person or device, or need extra time expressing complex and abst ract ideas (such as current events, finances, discharge planning, medical issues, relationships, etc) ? No. EXPRESSION - STEP 2: Does the patient need extra time, require an assistive device (such as augmentive communication syste m or a communication board), OR does s/he have mild difficulty expressing complex and abstract ideas (including mild dysarthria or mild word-find problems)? No. EXPRESSION - SCORE: 7-IND SOCIAL INTERACTION: SOCIAL INTERACTION - STEP 1: Does the patient require a helper to interact with others in social and therapeutic situations? No. SOCIAL INTERACTION - STEP 2: Does the patient need extra time in social situations, OR does s/he interact with staff, other patien ts, and family members ONLY in structured environments, OR does s/he require medication for social in teraction? No. SOCIAL INTERACTION - SCORE: 7-IND PROBLEM SOLVING: PROBLEM SOLVING - STEP 1: Does the patient need help from a person or device, or need extra time to solve complex problems such as managing a checking account or confronting interpersonal problems? No. PROBLEM SOLVING - STEP 2: Does the patient require extra time to make decisions or solve problems, OR does s/he have slight dif ficulty reading, initiating, or self-correcting in unfamiliar situations? No. PROBLEM SOLVING - SCORE: 7-IND MEMORY: MEMORY - STEP 1: Does the patient need help from a person or device, or need extra time to remember frequently encount ered people, daily routines, and executing requests? No. MEMORY - STEP 2: Does the patient have slight difficulty recognizing frequently encountered people, daily routines, or executing requests without the need for repetition or using self-initiated or environmental cues to remember? No. MEMORY - SCORE: 7-IND SIGNATURE PANEL: The following modified sections: Eating - Score, Grooming - Score, Bathing - Score, Dressing - Upper Body - Score, Dressing - Lower Body - Score, Toileting - Score, Transfers: Bed, Chair, Wheelchair - S core, Transfers: Toilet - Score, Transfers: Shower - Score, Transfers: Tub - Score, Comprehension - S core, Expression - Score, Social Interaction - Score, Problem Solving - Score, Memory - Score were [e lectronically] signed by MALU Marroquin on MonAug 29 2018 12:25:53 [facility]-0500 ([facility] Time)
--- NOTE | 2018-08-29 14:39 | RAD REPORT ---
EXAM DESCRIPTION: RAD - Abdomen 1 View (KUB) - 08/29/2018 2:30 pm CLINICAL HISTORY: abd pain Pain COMPARISON: No comparisons FINDINGS: The bowel gas pattern is non-obstructive. No evidence of free air or pneumatosis. Multiple calcifications project over the kidney shadows.
--- NOTE | 2018-08-29 15:54 | FAST ---
ENCOUNTER DATE AND TIME: 08/24/2018 08:00 (CDT) NAME HENRIQUE ARECHIGA DATE OF : 1940 DATE OF ADMISSION: 08/20/2018 16:21 (CDT) PHONE: AGE: 78 SSN# [id number] GENDER: Female ENCOUNTER PHYSICIAN: Dr. Rober Keller M.D. ADMISSION DIAGNOSIS: - Cardiac 09 - Cardiac Disorders () NSTEMI. EATING: Activity did not occur on this shift EATING - SCORE: 0-UNK GROOMING: Activity did not occur on this shift GROOMING - SCORE: 0-UNK BATHING: Activity did not occur on this shift BATHING - SCORE: 0-UNK DRESSING - UPPER BODY: Activity did not occur on this shift Patient is not dressing in public clothing ARTICLES SCORE Total number of steps: 0 DRESSING - UPPER BODY - SCORE: 0-UNK DRESSING - LOWER BODY: Activity did not occur on this shift Patient is not dressing in public clothing ARTICLES SCORE Total number of steps: 0 DRESSING - LOWER BODY - SCORE: 0-UNK TOILETING: Activity did not occur on this shift TOILETING - SCORE: 0-UNK BLADDER MANAGEMENT: Activity did not occur on this shift BLADDER MANAGEMENT - SCORE: 7-IND BOWEL MANAGEMENT: Activity did not occur on this shift BOWEL MANAGEMENT - SCORE: 7-IND TRANSFERS: BED, CHAIR, WHEELCHAIR: TRANSFERS: BED, CHAIR, WHEELCHAIR - STEP 1: Does the patient require assistance of a person or device, or need extra time with bed, chair, or whe elchair transfers? Yes. TRANSFERS: BED, CHAIR, WHEELCHAIR - STEP 2: Does the patient require the assistance of a helper? No. Patient only requires an assistive device fo r bed, chair, wheelchair transfers such as a sliding board, grab bar, or brace, OR s/he takes more th an reasonable time, OR there is a safety concern when s/he performs the transfers TRANSFERS: BED, CHAIR, WHEELCHAIR - SCORE: 6-FAHAD TRANSFERS: TOILET: Activity did not occur on this shift TRANSFERS: TOILET - SCORE: 0-UNK TRANSFERS: SHOWER: Activity did not occur on this shift TRANSFERS: SHOWER - SCORE: 0-UNK TRANSFERS: TUB: Activity did not occur on this shift TRANSFERS: TUB - SCORE: 0-UNK LOCOMOTION: WALK: LOCOMOTION: WALK - STEP 1: Does the patient need help from a person or device, or need extra time to walk 150 feet? Yes. LOCOMOTION: WALK - STEP 2: How much assistance does the patient require to walk a minimum of 150 feet? Only supervision, cuing, or coaxing LOCOMOTION: WALK - SCORE: 5-SUP LOCOMOTION: WHEELCHAIR: Activity did not occur on this shift LOCOMOTION: WHEELCHAIR - SCORE: 0-UNK LOCOMOTION: STAIRS: LOCOMOTION: STAIRS - STEP 1: Does the patient need help to go up and down 12 to 14 stairs? Yes. LOCOMOTION: STAIRS - STEP 2: How much assistance does the patient need from the helper to go a minimum of 12 to 14 stairs? The pat ient goes less than 12 stairs, but at least 4 stairs LOCOMOTION: STAIRS - SCORE: 2-MAX COMPREHENSION: COMPREHENSION - SCORE: 0-UNK EXPRESSION EXPRESSION - SCORE: 0-UNK SOCIAL INTERACTION: SOCIAL INTERACTION - SCORE: 0-UNK PROBLEM SOLVING: PROBLEM SOLVING - SCORE: 0-UNK MEMORY: MEMORY - SCORE: 0-UNK SIGNATURE PANEL: The following modified sections: Transfers: Bed, Chair, Wheelchair - Score, Transfers: Toilet - Score , Locomotion: Walk - Score, Locomotion: Wheelchair - Score, Locomotion: Stairs - Score were [electron eric] signed by Edwin Glez PTA on MonAug 29 2018 15:53:17 GMT-0500 (Central Daylight Time)
[2018-08-29] MEDS: DOCUSATE NA/SENNA CONC 1 TAB PO SCH (20:33)
[2018-08-29] MEDS: ATORVASTATIN 40 MG TAB PO SCH (20:33)
[2018-08-29] MEDS: CLOTRIMAZOLE 1% VAG SCH (20:34)
[2018-08-29] MEDS ORDERED: INSULIN -REGULAR HUMAN 50 UNIT/0.5 ML ML ONE (22:11)
--- NOTE | 2018-08-29 23:01 | R.PN ---
ENCOUNTER DATE AND TIME: 08/29/2018 22:57 (CDT) NAME HENRIQUE ARECHIGA DATE OF : 1940 DATE OF ADMISSION: 08/20/2018 16:21 (CDT) NSTEMICHIEF COMPLAINT: Debility and NSTSMI SUBJECTIVE: Pt denied any Shortness of Breath. Pt denied any depression. Hgb 10.8, WBC 3.2, glucose 134 to 201, Hgb A1c 6.0. Chest x-ray no acute changes. Ambulated 400' with standby assistance using a rolling walker. Up and down 10 steps with contact guar d assistance. KUB shows no obstructions but multiple calcifications over the kidney shadows. Home ADLs done with standby assistance. VITAL SIGNS Temperature: 97.8 F SBP/DBP: 129/56 Pulse: 67 Resp: 14 MEDICATION ALLERGIES: Heparin analogues iodine and iodide containing products morphine vicodin codeine levaquin phenergan reglan benadryl ENVIRONMENTAL ALLERGIES: - Substance Allergies None Known - Other Allergies None Known NURSING: - Shower allowing shower ACTIVITIES OOB only with supervision THERAPIES: - Dietary and Nutrition Adequate Nutrition. Nutritional Education. Nutritional Supplements. PHYSICAL EXAM - Gen Alert and awake Lying in bed No apparent distress Oriented to: person, time, and place - Skin No skin breakdown. No abnormalities - Eyes No abnormalities - ENMT No abnormalities - Neck No abnormalities - CVS RRR - Chest No abnormalities - Abd Soft - GI + bowel sounds Deferred - No abnormalities - Ext No significant edema. - MSK 4/5 weakness in both lower extremities. - Neuro No focal deficits - Psych No abnormalities ASSESSMENT: Pt. is a 78 yo Right-handed white female.On 07/31/2018 she was admitted to [facility] with diagnosis NSTEMI.Her impairment category is Cardiac 09 - Cardiac Disorders (09).Pre-mor bidly, Pt. was independent/mod-I in Self-Care, Sphincter Control, Transfers Control, Communication, S ocial Cognition, and Locomotion; and she had good Sphincter Control.Currently, she has deficits of Tr ansfers Control, Communication, Social Cognition, Endurance, Balance, Safety Awareness, Self-Care, an d Locomotion.Pt. is now referred to [facility] for acute in-patient rehabilita tion in order to maximize patient's functional independence in activities of daily living, strength, ROM, and mobility.- Rehab Goal Patient has realistic goal of being discharged at assistance level 6-Tracie to reside at Home with Fam giovanna/Relatives. MDM/PLAN: - Physical Therapy Gait dysfunction - to improve, our physical therapists will perform initial evaluation of pt's statu s upon admission and devise an individualized program for Gait Training, and Wheel Chair mobility Inability to transfer - to improve, our physical therapists will perform initial evaluation of pt's status upon admission and devise an individualized program for Bed mobility Need for home safety evaluation - to improve, our physical therapists will perform initial evaluatio n of pt's status upon admission and devise an individualized program for Home Evaluation Need in caregiver upon discharge - to improve, our physical therapists will perform initial evaluati on of pt's status upon admission and devise an individualized program for Caregiver Training New precaution - to improve, our physical therapists will perform initial evaluation of pt's status upon admission and devise an individualized program for Patient precaution education Edema - to improve, our physical therapists will perform initial evaluation of pt's status upon admi ssion and devise an individualized program for Elevation Training, and Lymphedema Therapy Poor balance - to improve, our physical therapists will perform initial evaluation of pt's status up on admission and devise an individualized program for Balance Training Poor endurance - to improve, our physical therapists will perform initial evaluation of pt's status upon admission and devise an individualized program for Endurance Training Weakness - to improve, our physical therapists will perform initial evaluation of pt's status upon a dmission and devise an individualized program for Aquatic Therapy, Neuromuscular Reeducation, and Str engthening Achieving independence - to improve, our physical therapists will perform initial evaluation of pt's status upon admission and devise an individualized program for Community Reintegration Activities - Occupational Therapy ADL deficits - to improve, our occupation therapists will perform initial evaluation of pt's status upon admission and devise an individualized program for Bathing, Bed mobility, Community Reintegratio n, Cooking, Dressing, Eating, Fine Motor Skills, Grooming, Homemaking, Kitchen Mobility, Laundry, Pat ient Education, Safety Awareness, Splinting - Positioning, Transfers(Toilet, Tub, Shower), and Wheel Chair Management Cognitive deficits - to improve, our occupation therapists will perform initial evaluation of pt's s tatus upon admission and devise an individualized program for Cognition - orientation Need for occasional caregiver - to improve, our occupation therapists will perform initial evaluation of pt's status upon admission and devise an individualized program for Caregiver Training Weakness - to improve, our occupation therapists will perform initial evaluation of pt's status upon admission and devise an individualized program for Aquatic Therapy, Balance, Endurance, UE ROM, and UE strengthening - Other See attached MAR (Medication Administration Record) [id number].pdf - Diet Type Continue ADA 1800 jesús - Diet - Liquid Texture Continue Regular - Tube Feed Continue N/A - Diet - Solid Texture Continue Regular - Shower allowing shower FUNCTIONAL STATUS: UPDATED AT WEEKLY TEAM CONFERENCE - Bladder Same accident frequency: 7-Ind - No accidents in the past 7 days - Bowel Same accident frequency: 7-Ind - No accidents in the past 7 days - Walking Same score based on distance walked: 0(N/A) FUNCTIONAL STATUS: - Self-Care A. Eating Ind B. Grooming sup C. Bathing Aj D. Dressing - Upper sup E. Dressing - Lower modA F. Toileting modA - Sphincter Control G: Bladder control Ind H: Bowel control Ind - Transfers Control I. Bed/Chair/Wheelchair CGA J. Toilet CGA K. Tub/Shower CGA - Locomotion L. Walk/Wheelchair (B) maxA M. Stairs ADNO - Communication N. Comprehension (B) sup O. Expression (B) sup - Social Cognition P. Social Interaction sup Q. Problem Solving sup R. Memory sup - Endurance Poor - Balance Fair - Safety Awareness Fair CURRENT FUNC. DEFICITS: Transfers Control, Communication, Social Cognition, Endurance, Balance, Safety Awareness, Self-Care, and Locomotion SIGNATURE PANEL: (CDT)
--- NOTE | 2018-08-30 02:18 | FAST ---
SHIFT START DATE/TIME: 08/29/2018 19:00 (CDT) SHIFT END DATE/TIME: 08/30/2018 07:00 (CDT) NAME HENRIQUE ARECHIGA DATE OF : 1940 DATE OF ADMISSION: 08/20/2018 16:21 (CDT) PHONE: AGE: 78 N# [id number] GENDER: Female ENCOUNTER PHYSICIAN: Dr. Rober Keller M.D. ADMISSION DIAGNOSIS: - Cardiac 09 - Cardiac Disorders () NSTEMI. EATING: Activity did not occur on this shift EATING - SCORE: 0-UNK GROOMING: Wash, rinse, and dry hands GROOMING - STEP 1: Does the patient require the assistance of a person or device, or need extra time when grooming? Yes. GROOMING - STEP 2: Does the patient require the assistance of a helper? Yes. GROOMING - STEP 3: How much assistance does the patient require from the helper? Only prior equipment preparation/set up from the helper GROOMING - SCORE: 5-SUP BATHING: Activity did not occur on this shift BATHING - SCORE: 0-UNK DRESSING - UPPER BODY: Patient is not dressing in public clothing ARTICLES SCORE Total number of steps: 0 DRESSING - UPPER BODY - SCORE: 0-UNK DRESSING - LOWER BODY: Patient is not dressing in public clothing ARTICLES SCORE Total number of steps: 0 DRESSING - LOWER BODY - SCORE: 0-UNK TOILETING: TOILETING - STEP 1: Does the patient require the assistance of a person or device, or need extra time with toileting? Yes . TOILETING - STEP 2: Does the patient require the assistance of a helper? Yes. TOILETING - STEP 3: How much assistance does the patient require from the helper? Hands-on assistance from the helper TOILETING - STEP 4: Of the 3 tasks: 1) Adjusting clothing prior to use, 2) Cleansing of perineal area, 3) Adjusting clot jenniffer after use; How many tasks does the patient perform WITHOUT assistance of the helper? Three tasks with steadying assistance from the helper TOILETING - SCORE: 4-MIN BLADDER MANAGEMENT: BLADDER MANAGEMENT - STEP 1: Does the patient control the bladder completely and intentionally without equipment or devices or med ications, and is always continent? No. BLADDER MANAGEMENT - STEP 2: Does the patient require the assistance of a helper? Yes. BLADDER MANAGEMENT - STEP 3: How much assistance does the patient require from the helper? Only supervision, stand-by, cuing, or c oaxing BLADDER MANAGEMENT - SCORE: 5-SUP BOWEL MANAGEMENT: BOWEL MANAGEMENT - STEP 1: Does the patient control bowels completely and intentionally without equipment devices or medications AND is always continent? No. BOWEL MANAGEMENT - STEP 2: Does the patient require the assistance of a helper? No, patient requires medication for control such as stool softeners, suppositories, laxatives, enemas, or OTC medications BOWEL MANAGEMENT - SCORE: 6-FAHAD TRANSFERS: BED, CHAIR, WHEELCHAIR: TRANSFERS: BED, CHAIR, WHEELCHAIR - STEP 1: Does the patient require assistance of a person or device, or need extra time with bed, chair, or whe elchair transfers? Yes. TRANSFERS: BED, CHAIR, WHEELCHAIR - STEP 2: Does the patient require the assistance of a helper? Yes. TRANSFERS: BED, CHAIR, WHEELCHAIR - STEP 3: How much assistance does the patient require from the helper? Steadying/guiding assistance TRANSFERS: BED, CHAIR, WHEELCHAIR - SCORE: 4-MIN TRANSFERS: TOILET: TRANSFERS: TOILET - STEP 1: Does the patient require the assistance of a person or device, or need extra time with toilet transfe rs? Yes. TRANSFERS: TOILET - STEP 2: Does the patient require the assistance of a helper? Yes. TRANSFERS: TOILET - STEP 3: How much assistance does the patient require from the helper? Only supervision, cuing, coaxing, OR he lp to set out transfer equipment or to lock brakes and/or lift foot rests TRANSFERS: TOILET - SCORE: 5-SUP TRANSFERS: SHOWER: Activity did not occur on this shift TRANSFERS: SHOWER - SCORE: 0-UNK TRANSFERS: TUB: Activity did not occur on this shift TRANSFERS: TUB - SCORE: 0-UNK LOCOMOTION: WALK: Activity did not occur on this shift LOCOMOTION: WALK - SCORE: 0-UNK LOCOMOTION: WHEELCHAIR: Activity did not occur on this shift LOCOMOTION: WHEELCHAIR - SCORE: 0-UNK COMPREHENSION: COMPREHENSION: TYPE: Both COMPREHENSION - STEP 1: Does the patient require help from a person or device, or need extra time to understand complex and a bstract ideas (such as current events, finances, discharge planning, medical issues, relationships, e tc)? No. COMPREHENSION - STEP 2: Does the patient need extra time, require an assistive device (such as glasses for visual comprehensi on or a hearing aid for auditory comprehension) or does s/he have mild difficulty understanding compl ex and abstract information? Yes. COMPREHENSION - SCORE: 6-FAHAD EXPRESSION EXPRESSION: TYPE: Both EXPRESSION - STEP 1: Does the patient require help from a person or device, or need extra time expressing complex and abst ract ideas (such as current events, finances, discharge planning, medical issues, relationships, etc) ? No. EXPRESSION - STEP 2: Does the patient need extra time, require an assistive device (such as augmentive communication syste m or a communication board), OR does s/he have mild difficulty expressing complex and abstract ideas (including mild dysarthria or mild word-find problems)? No. EXPRESSION - SCORE: 7-IND SOCIAL INTERACTION: SOCIAL INTERACTION - STEP 1: Does the patient require a helper to interact with others in social and therapeutic situations? No. SOCIAL INTERACTION - STEP 2: Does the patient need extra time in social situations, OR does s/he interact with staff, other patien ts, and family members ONLY in structured environments, OR does s/he require medication for social in teraction? Yes, patient needs extra time SOCIAL INTERACTION - SCORE: 6-FAHAD PROBLEM SOLVING: PROBLEM SOLVING - STEP 1: Does the patient need help from a person or device, or need extra time to solve complex problems such as managing a checking account or confronting interpersonal problems? Yes. PROBLEM SOLVING - STEP 2: Does the patient solve basic routine problems half or more of the time? Yes. PROBLEM SOLVING - STEP 3: How often does the patient need help to solve basic routine problems? Less than 10% of the time PROBLEM SOLVING - SCORE: 5-SUP MEMORY: MEMORY - STEP 1: Does the patient need help from a person or device, or need extra time to remember frequently encount ered people, daily routines, and executing requests? No. MEMORY - STEP 2: Does the patient have slight difficulty recognizing frequently encountered people, daily routines, or executing requests without the need for repetition or using self-initiated or environmental cues to remember? Yes. MEMORY - SCORE: 6-FAHAD SIGNATURE PANEL: The following modified sections: Eating - Score, Grooming - Score, Dressing - Upper Body - Score, Ishmael ssing - Lower Body - Score, Toileting - Score, Bladder Management - Score, Bowel Management - Score, Transfers: Bed, Chair, Wheelchair - Score, Transfers: Toilet - Score, Transfers: Shower - Score, Booker sfers: Tub - Score, Locomotion: Walk - Score, Locomotion: Wheelchair - Score, Comprehension - Score, Expression - Score, Social Interaction - Score, Problem Solving - Score, Memory - Score were [electro nically] signed by Naomy Cormier CNA on MonAug 30 2018 02:17:09 T-0500 (Central Daylight Time)
[2018-08-30] MEDS: METOPROLOL TAR 25 MG TAB PO SCH ×2 (05:30→17:20)
[2018-08-30 06:27] LABS: MPV 8.8 fL (7.6-11.3)
[2018-08-30 06:35] LABS: Absolute Lymphocytes (CBC) 1.2 K/uL (0.7-4.9); Basophils % 1.4 % (0-1.3); Eosinophils % 9.4 % (0-4.4); Lymphocytes % 28.9 % (15.3-44.8); RBC Red Blood Cell Count 3.44 M/uL (3.86-4.86)
[2018-08-30 06:42] LABS: Monocytes % 18.4 % (3.3-12.3)
[2018-08-30] MEDS: ONDANSETRON 4 MG (ODT) TAB PO PRN (06:45)
[2018-08-30] MEDS: PANTOPRAZOLE 40MG TABLET PO SCH ×2 (06:45→18:00)
[2018-08-30 06:47] LABS: Albumin 2.9 g/dL (3.4-5.0); Potassium 4.1 mmol/L (3.5-5.1); Prealbumin 13.8 mg/dL (20-40)
[2018-08-30] MEDS: INSULIN -REGULAR HUMAN 50 UNIT/0.5 ML ML SQ SCH ×4 (07:30→20:38)
[2018-08-30] MEDS: PROMOD 30 ML DOSE PO SCH ×2 (08:00→20:00)
[2018-08-30] MEDS: CALCITROL 0.25 MCG CAP PO SCH (08:46)
[2018-08-30] MEDS: BUMETANIDE 1 MG TABLET PO SCH ×2 (08:47→17:19)
[2018-08-30] MEDS: VITAMIN D 5,000 UNIT CAP PO SCH (08:48)
[2018-08-30] MEDS: APIXABAN 2.5 MG TABLET PO SCH ×2 (08:49→20:37)
[2018-08-30] MEDS: THIAMINE HCL 100 MG TABLET PO SCH (08:50)
[2018-08-30] MEDS: CYANOCOBALAMIN 1,000 MCG TAB PO SCH (08:50)
[2018-08-30] MEDS: CLOPIDOGREL 75 MG TABLET PO SCH (08:51)
[2018-08-30] MEDS: FOLIC ACID 1 MG TABLET PO SCH (08:51)
[2018-08-30] MEDS: AMIODARONE HCL 200 MG TAB PO SCH (08:51)
[2018-08-30] MEDS: INSULIN GLARGINE 100 UNITS/ML SQ SCH ×2 (08:54→15:54)
[2018-08-30] MEDS: DOCUSATE NA/SENNA CONC 1 TAB PO SCH (20:36)
[2018-08-30] MEDS: ATORVASTATIN 40 MG TAB PO SCH (20:37)
[2018-08-30] MEDS: CRANBERRY FRUIT EXTRACT 200 MG CAP PO SCH (20:37)
--- NOTE | 2018-08-30 21:43 | P.PN ---
Date of Service: 08/30/18 Vital Signs Temp Pulse Resp BP Pulse Ox 97.8 F 72 16 116/58 L 98 08/30/18 20:04 08/30/18 20:04 08/30/18 20:04 08/30/18 20:04 08/30/18 20:04 Medications Acetaminophen (Tylenol -Extra Strength) 1,000 mg PO Q6H PRN PRN Reason: Pain scale 2-4 (Mild) Stop: 09/19/18 17:01 Last Admin: 08/23/18 10:35 Dose: 1,000 mg Amiodarone HCl (Cordarone Tab) 200 mg PO DAILY JL Stop: 09/20/18 08:01 Last Admin: 08/30/18 08:51 Dose: 200 mg Apixaban (Eliquis) 2.5 mg PO BID JL Stop: 09/22/18 08:01 Last Admin: 08/30/18 20:37 Dose: 2.5 mg Atorvastatin Calcium (Lipitor) 80 mg PO BEDTIME JL Stop: 09/26/18 21:01 Last Admin: 08/30/18 20:37 Dose: 80 mg Bisacodyl (Dulcolax) 10 mg ID DAILY PRN PRN Reason: CONSTIPATION Stop: 09/27/18 14:24 Bumetanide (Bumex) 0.5 mg PO BID@0800,1700 JL Stop: 09/20/18 08:01 Last Admin: 08/30/18 17:19 Dose: 0.5 mg Calcitriol (Rocaltrol) 0.5 mcg PO DAILY JL Stop: 09/25/18 08:01 Last Admin: 08/30/18 08:46 Dose: 0.5 mcg Cholecalciferol (Vitamin D 5,000 Iu Cap) 5,000 unit PO DAILY JL Stop: 09/25/18 08:01 Last Admin: 08/30/18 08:48 Dose: 5,000 unit Clopidogrel Bisulfate (Plavix) 75 mg PO DAILY JL Stop: 09/20/18 08:01 Last Admin: 08/30/18 08:51 Dose: 75 mg Cyanocobalamin (Vitamin B-12) 1,000 mcg PO DAILY JL Stop: 09/20/18 10:01 Last Admin: 08/30/18 08:50 Dose: 1,000 mcg Dextrose (Dextrose 50% Syringe) 12.5 gm IV PRN PRN; Protocol PRN Reason: HYPOGLYCEMIA Stop: 09/19/18 17:20 Epoetin Monty (Epogen) 10,000 unit SQ MO,FR [facility] Stop: 09/26/18 17:01 Last Admin: 08/27/18 17:10 Dose: 10,000 unit Folic Acid (Folic Acid) 1 mg PO DAILY [facility] Stop: 09/20/18 08:01 Last Admin: 08/30/18 08:51 Dose: 1 mg Glucagon (Glucagen) 1 mg IM 1X PRN; Protocol PRN Reason: HYPOGLYCEMIA Stop: 09/19/18 17:20 Insulin Glargine (Lantus) 12 units SQ DAILY WITH BREAKFAST [facility] Stop: 09/30/18 08:01 Last Admin: 08/30/18 15:54 Dose: 7 units Insulin Human Regular (Novolin -R) 0 unit SQ ACHS [facility]; Protocol Stop: 09/19/18 21:01 Last Admin: 08/30/18 20:38 Dose: Not Given Ipratropium Graham (Atrovent Neb) 0.5 mg NEB Q6HP PRN PRN Reason: SHORTNESS OF BREATH Stop: 09/20/18 09:48 Lorazepam (Ativan) 0.5 mg PO DAILY PRN PRN Reason: ANXIETY Stop: 09/20/18 08:01 Metoprolol Tartrate (Lopressor) 25 mg PO BID 6AM 6PM [facility] Stop: 09/19/18 18:01 Last Admin: 08/30/18 17:20 Dose: 25 mg Nitroglycerin (Nitrostat) 0.4 mg SL UD PRN PRN Reason: Pain scale 2-4 (Mild) Stop: 09/19/18 17:00 Nutritional Formula (Promod Liquid Protein) 30 ml PO BID [facility] Stop: 09/20/18 20:01 Last Admin: 08/30/18 20:00 Dose: Not Given Ondansetron HCl (Zofran) 4 mg PO Q4H PRN PRN Reason: NAUSEA / VOMITING Stop: 09/26/18 13:51 Last Admin: 08/30/18 06:45 Dose: 4 mg Oxymetazoline HCl (Afrin) 2 appl ZULEIMA BID PRN PRN Reason: NASAL CONGESTION Stop: 09/19/18 17:00 Pantoprazole Sodium (Protonix Tab) 40 mg PO BIDAC [facility]; Protocol Stop: 09/28/18 16:31 Last Admin: 08/30/18 18:00 Dose: 40 mg Senna/Docusate Sodium (Senokot-S) 2 tab PO BEDTIME JL Stop: 09/20/18 21:01 Last Admin: 08/30/18 20:36 Dose: 1 tab Sodium Biphosphate/Sodium Phosphate (Fleet Enema Adult) 133 ml ID DAILY PRN PRN Reason: CONSTIPATION Stop: 09/27/18 14:24 Thiamine HCl (Vitamin B-1) 100 mg PO DAILY JL Stop: 09/20/18 08:01 Last Admin: 08/30/18 08:50 Dose: 100 mg Lab Results (last 24 hrs) 08/30/18 16:43: POC Glucose 250 H 08/30/18 11:56: POC Glucose 239 H 08/30/18 07:26: POC Glucose 155 H 08/30/18 06:00: Sodium 139, Potassium 4.1, Chloride 100, Carbon Dioxide 33 H, BUN 57 H, Creatinine 2.72 H, Estimated GFR 17 L, Glucose 136 H, Calcium 8.9, Albumin 2.9 L, Prealbumin 13.8 L 08/30/18 06:00: WBC 4.0 L D, RBC 3.44 L, Hgb 11.0 L, Hct 34.0 L, MCV 98.7, MCH 32.0, MCHC 32.4, RDW 16.5 H, Plt Count 202, MPV 8.8, Neutrophils % 41.9, Lymphocytes % 28.9, Monocytes % 18.4 H, Eosinophils % 9.4 H, Basophils % 1.4 H, Absolute Neutrophils 1.7 L, Absolute Lymphocytes 1.2, Absolute Monocytes 0.7, Absolute Eosinophils 0.4, Absolute Basophils 0.1 08/29/18 20:30: POC Glucose 247 H Microbiology Results 08/27/18 19:20 Clean Catch Urine [place] Count - Final >100,000 CFU/ML. 08/27/18 19:20 Clean Catch Urine - Final Pseudomonas Aeruginosa Enterococcus Faecalis Assessment/ Plan: Nephrology. Feeling better today. Nausea with vomiting for 3-4 days. CPS stable without CP or SOB. No acute events overnight. Vitals, medications, blood work and imaging reviewed in the chart. General: In no apparent distress, Oriented x3, Cooperative HEENT: Atraumatic Neck: Supple Respiratory: Clear to auscultation bilaterally Cardiovascular: Regular rate/rhythm, Edema Gastrointestinal: Soft and benign, Non-distended Musculoskeletal: No clubbing, No contractures Integumentary: No rashes, No cyanosis Neurological: Normal speech Blood work reviewed in the chart. Cr 2.74 Imagings Data: EXAM DESCRIPTION: VAS - Abdomen Pelvis Scan - 01/31/2017 9:53 am CLINICAL HISTORY: I65.21, N18.3, I25.10 COMPARISON: None. FINDINGS: The bilateral kidneys are normal in size, the right measuring 9.1 x 4.7 x 4.0 cm and the left measuring 9.7 x 4.5 x 4.4 cm. Aortic velocity: 75 cm/second Right proximal renal artery: 77 cm/second Right mid renal artery: 97 cm/second Right distal renal artery: 43 cm/second Right renal arcuate artery resistive index: 0.4 Right renal artery / aorta ratio: 1.3. Left proximal renal artery: 71 cm/second Left mid renal artery: 58 cm/second Left distal renal artery: 55 cm/second Left renal arcuate artery resistive index: 1.0 Left renal artery/aorta ratio: 0.9 Normal waveforms demonstrated within the bilateral renal arteries. IMPRESSION: No evidence of hemodynamically significant stenosis within the bilateral renal arteries. Conclusions/Impression: A/ OTIS recently requiring dialysis has improved. CKD III but her new baseline may be CKD IV. Proteinuria. DM II with CKD and Polyneuropathy. HTN with CKD/ CHF. ROLDAN. Diastolic CHF, chronic. Anemia in chronic illness. GREGORY/ Secondary HyperPTH. CAD/ PAD. Moderate malnutrition. Persistent nausea concerning for DM gastroparesis. P/ Continue current POC and Medications. Increase Lantus. Start Reglan BID. Maintain nutrition. No NSAIDs. AM Labs PRN. Daily weight. PT/ OT as tolerated.
[2018-08-31] MEDS: METOPROLOL TAR 25 MG TAB PO SCH ×2 (05:26→16:56)
[2018-08-31] MEDS: PANTOPRAZOLE 40MG TABLET PO SCH ×2 (07:22→16:57)
[2018-08-31] MEDS: ONDANSETRON 4 MG (ODT) TAB PO PRN ×4 (07:22→20:37)
[2018-08-31] MEDS: INSULIN -REGULAR HUMAN 50 UNIT/0.5 ML ML SQ SCH ×4 (07:26→22:14)
[2018-08-31] MEDS: METOCLOPRAMIDE 5 MG TAB PO SCH ×2 (08:00→16:30)
[2018-08-31] MEDS: PROMOD 30 ML DOSE PO SCH ×2 (08:00→20:00)
[2018-08-31] MEDS: INSULIN GLARGINE 100 UNITS/ML SQ SCH (08:11)
[2018-08-31] MEDS: CRANBERRY FRUIT EXTRACT 200 MG CAP PO SCH ×2 (09:13→20:38)
[2018-08-31] MEDS: CALCITROL 0.25 MCG CAP PO SCH (09:13)
[2018-08-31] MEDS: BUMETANIDE 1 MG TABLET PO SCH ×2 (09:14→16:55)
[2018-08-31] MEDS: CYANOCOBALAMIN 1,000 MCG TAB PO SCH (09:15)
[2018-08-31] MEDS: VITAMIN D 5,000 UNIT CAP PO SCH (09:15)
[2018-08-31] MEDS: THIAMINE HCL 100 MG TABLET PO SCH (09:15)
[2018-08-31] MEDS: AMIODARONE HCL 200 MG TAB PO SCH (09:15)
[2018-08-31] MEDS: FOLIC ACID 1 MG TABLET PO SCH (09:15)
[2018-08-31] MEDS: CLOPIDOGREL 75 MG TABLET PO SCH (09:16)
[2018-08-31] MEDS: APIXABAN 2.5 MG TABLET PO SCH ×2 (09:16→20:39)
--- NOTE | 2018-08-31 09:44 | P.RH.PN ---
Estimated Length of Stay: 15 Expected Discharge Date: 09/03/18 Discharge Disposition Plan: Home Family Support: Yes Penitentiary Goal: Mobility, Transfers, Self Care Vital Signs: Last Vital Signs Temp 97.8 F 08/30/18 20:04 Pulse 67 08/31/18 09:14 Resp 16 08/30/18 20:04 BP 111/54 L 08/31/18 09:14 Pulse Ox 98 08/30/18 20:04 Laboratory: Laboratory Last Values WBC 4.0 K/uL (4.3-10.9) L D 08/30/18 06:00 RBC 3.44 M/uL (3.86-4.86) L 08/30/18 06:00 Hgb 11.5 g/dL (12.0-15.0) L 08/31/18 05:58 Hct 34.0 % (36.0-45.0) L 08/30/18 06:00 MCV 98.7 fL (80-100) 08/30/18 06:00 MCH 32.0 pg (27.0-35.0) 08/30/18 06:00 MCHC 32.4 g/dL (32.0-36.0) 08/30/18 06:00 RDW 16.5 % (12.1-15.2) H 08/30/18 06:00 Plt Count 202 K/uL (152-406) 08/30/18 06:00 MPV 8.8 fL (7.6-11.3) 08/30/18 06:00 Neutrophils % 41.9 % (41.7-73.7) 08/30/18 06:00 Lymphocytes % 28.9 % (15.3-44.8) 08/30/18 06:00 Monocytes % 18.4 % (3.3-12.3) H 08/30/18 06:00 Eosinophils % 9.4 % (0-4.4) H 08/30/18 06:00 Basophils % 1.4 % (0-1.3) H 08/30/18 06:00 Absolute Neutrophils 1.7 K/uL (1.8-8.0) L 08/30/18 06:00 Segmented Neutrophils 55 % (40-80) 08/24/18 05:40 Absolute Lymphocytes 1.2 K/uL (0.7-4.9) 08/30/18 06:00 Lymphocytes 31 % (15-42) 08/24/18 05:40 Monocytes 11 % (0-10) H 08/24/18 05:40 Absolute Monocytes 0.7 K/uL (0.1-1.3) 08/30/18 06:00 Eosinophils 3 % (0-3) 08/24/18 05:40 Absolute Eosinophils 0.4 K/uL (0-0.5) 08/30/18 06:00 Absolute Basophils 0.1 K/uL (0-0.5) 08/30/18 06:00 Anisocytosis 1+ 08/27/18 05:43 Morphology Comment Noted (NOT SEEN) 08/27/18 05:43 Sodium 139 mmol/L (136-145) 08/30/18 06:00 Potassium 4.1 mmol/L (3.5-5.1) 08/30/18 06:00 Chloride 100 mmol/L (98-107) 08/30/18 06:00 Carbon Dioxide 33 mmol/L (21-32) H 08/30/18 06:00 BUN 57 mg/dL (7-18) H 08/30/18 06:00 Creatinine 2.72 mg/dL (0.55-1.3) H 08/30/18 06:00 Estimated GFR 17 mL/min (=/>90) L 08/30/18 06:00 Glucose 136 mg/dL (74-106) H 08/30/18 06:00 POC Glucose 119 mg/dl (65-120) 08/31/18 07:20 Hemoglobin A1c 6.0 % (4.2-6.3) 08/27/18 05:43 Calcium 8.9 mg/dL (8.5-10.1) 08/30/18 06:00 Magnesium 2.0 mg/dL (1.8-2.4) 08/21/18 05:41 Albumin 2.9 g/dL (3.4-5.0) L 08/30/18 06:00 Prealbumin 13.8 mg/dL (20-40) L 08/30/18 06:00 Urine Color Yellow 08/27/18 19:20 Urine Appearance Clear 08/27/18 19:20 Urine pH 5.5 (5.0-7.0) 08/27/18 19:20 Ur Specific [place] 1.010 (1.005-1.030) 08/27/18 19:20 Urine Ketones Negative (NEG) 08/27/18 19:20 Urine Blood Negative (NEG) 08/27/18 19:20 Urine Nitrite Negative (NEG) 08/27/18 19:20 Urine Bilirubin Negative (NEG) 08/27/18 19:20 Urine Urobilinogen 0.2 mg/dL (0.2-1.0) 08/27/18 19:20 Ur Leukocyte Esterase 1+ (NEG) H 08/27/18 19:20 Urine RBC <5 /HPF (NONE SEEN) 08/27/18 19:20 Urine WBC 5-10 /HPF (<5) H 08/27/18 19:20 Ur Squamous Epith Cells <5 /HPF (NONE SEEN) 08/27/18 19:20 Urine Bacteria <20 /HPF (<20) 08/27/18 19:20 Urine Culture Reflexed Not needed 08/27/18 19:20 Urine Glucose Negative (NEG) 08/27/18 19:20 Urine Total Protein Negative (NEG) 08/27/18 19:20 Weight: 165 lb 6.4 oz Wound Present: Yes Closed Surgical Incision Present: No Negative Pressure Wound Therapy Present: No Physician Update: Her right big toe is hurting. Her blood sugar is poorly controlled. She will start other diabetic medication. She is doing well with ADLs at standby assistance. She is doing well with physical therapy at [facility]. She may be discharged on Monday. Medical Issues: DVT Prophylaxis- Eliquis 2.5mg BID PO Pain Issues: Tylenol 1gm Q6H PRN PO Functional Improvement: Patient has met all short-term goals at this time, w/ the exception of distance traveled w/ gait tx. Patient shows good safety awareness, however requires VC for motivation to continue w/ therapy. Functional Improvement Occupational Therapy: pt can benifit with further therapy to address pt's static/dynamic standing tolerance for adl's and for functional Iadls when returning home. Cont to increase and strengthen pt's UB strength to assist with sit to stands and for safe functional transfers. Cont with educating pt about energy conservation and safety techniques when completing dressing tasks and Iadl tasks. Summary: Patient's care plan and technician terminal and repeater goals have been reviewed and revised as necessary. Please see the Rehabilitation Signature page for all necessary signatures.
[2018-08-31] MEDS: ACETAMINOPHEN 500 MG TAB PO PRN (10:23)
--- NOTE | 2018-08-31 14:47 | FAST ---
ENCOUNTER DATE AND TIME: 08/31/2018 08:00 (CDT) NAME HENRIQUE ARECHIGA DATE OF : 1940 DATE OF ADMISSION: 08/20/2018 16:21 (CDT) PHONE: AGE: 78 SSN# [id number] GENDER: Female ENCOUNTER PHYSICIAN: Dr. Rober Keller M.D. ADMISSION DIAGNOSIS: - Cardiac 09 - Cardiac Disorders () NSTEMI. EATING: Activity did not occur on this shift EATING - SCORE: 0-UNK GROOMING: Activity did not occur on this shift GROOMING - SCORE: 0-UNK BATHING: Activity did not occur on this shift BATHING - SCORE: 0-UNK DRESSING - UPPER BODY: Activity did not occur on this shift Patient is not dressing in public clothing ARTICLES SCORE Total number of steps: 0 DRESSING - UPPER BODY - SCORE: 0-UNK DRESSING - LOWER BODY: Activity did not occur on this shift Patient is not dressing in public clothing ARTICLES SCORE Total number of steps: 0 DRESSING - LOWER BODY - SCORE: 0-UNK TOILETING: Activity did not occur on this shift TOILETING - SCORE: 0-UNK BLADDER MANAGEMENT: Activity did not occur on this shift BLADDER MANAGEMENT - SCORE: 7-IND BOWEL MANAGEMENT: Activity did not occur on this shift BOWEL MANAGEMENT - SCORE: 7-IND TRANSFERS: BED, CHAIR, WHEELCHAIR: TRANSFERS: BED, CHAIR, WHEELCHAIR - STEP 1: Does the patient require assistance of a person or device, or need extra time with bed, chair, or whe elchair transfers? Yes. TRANSFERS: BED, CHAIR, WHEELCHAIR - STEP 2: Does the patient require the assistance of a helper? No. Patient only requires an assistive device fo r bed, chair, wheelchair transfers such as a sliding board, grab bar, or brace, OR s/he takes more th an reasonable time, OR there is a safety concern when s/he performs the transfers TRANSFERS: BED, CHAIR, WHEELCHAIR - SCORE: 6-FAHAD TRANSFERS: TOILET: Activity did not occur on this shift TRANSFERS: TOILET - SCORE: 0-UNK TRANSFERS: SHOWER: Activity did not occur on this shift TRANSFERS: SHOWER - SCORE: 0-UNK TRANSFERS: TUB: Activity did not occur on this shift TRANSFERS: TUB - SCORE: 0-UNK LOCOMOTION: WALK: LOCOMOTION: WALK - STEP 1: Does the patient need help from a person or device, or need extra time to walk 150 feet? No. LOCOMOTION: WALK - STEP 2: Does the patient need an assistive device (such as an orthosis, prosthesis, crutches, or walker) to g o 150 feet, OR does s/he take more than reasonable time, OR is there a concern for safety? Yes, the p atient needs an assistive device LOCOMOTION: WALK - SCORE: 6-FAHAD LOCOMOTION: WHEELCHAIR: Activity did not occur on this shift LOCOMOTION: WHEELCHAIR - SCORE: 0-UNK LOCOMOTION: STAIRS: Activity did not occur on this shift LOCOMOTION: STAIRS - SCORE: 0-UNK COMPREHENSION: COMPREHENSION - SCORE: 0-UNK EXPRESSION EXPRESSION - SCORE: 0-UNK SOCIAL INTERACTION: SOCIAL INTERACTION - SCORE: 0-UNK PROBLEM SOLVING: PROBLEM SOLVING - SCORE: 0-UNK MEMORY: MEMORY - SCORE: 0-UNK SIGNATURE PANEL: The following modified sections: Transfers: Bed, Chair, Wheelchair - Score, Transfers: Toilet - Score , Locomotion: Walk - Score, Locomotion: Wheelchair - Score, Locomotion: Stairs - Score were [electron eric] signed by Francois Cota PT on MonAug 31 2018 14:46:47 T-0500 (Central Daylight Time)
[2018-08-31] MEDS ORDERED: LORAZEPAM 0.5 MG TABLET PO PRN (15:10)
--- NOTE | 2018-08-31 15:31 | FAST ---
ENCOUNTER DATE AND TIME: 08/30/2018 08:00 (CDT) NAME HENRIQUE ARECHIGA DATE OF : 1940 DATE OF ADMISSION: 08/20/2018 16:21 (CDT) PHONE: AGE: 78 SSN# [id number] GENDER: Female ENCOUNTER PHYSICIAN: Dr. Rober Keller M.D. ADMISSION DIAGNOSIS: - Cardiac 09 - Cardiac Disorders () NSTEMI. EATING: Activity did not occur on this shift EATING - SCORE: 0-UNK GROOMING: Activity did not occur on this shift GROOMING - SCORE: 0-UNK BATHING: Activity did not occur on this shift BATHING - SCORE: 0-UNK DRESSING - UPPER BODY: Activity did not occur on this shift Patient is not dressing in public clothing ARTICLES SCORE Total number of steps: 0 DRESSING - UPPER BODY - SCORE: 0-UNK DRESSING - LOWER BODY: Activity did not occur on this shift Patient is not dressing in public clothing ARTICLES SCORE Total number of steps: 0 DRESSING - LOWER BODY - SCORE: 0-UNK TOILETING: Activity did not occur on this shift TOILETING - SCORE: 0-UNK BLADDER MANAGEMENT: Activity did not occur on this shift BLADDER MANAGEMENT - SCORE: 7-IND BOWEL MANAGEMENT: Activity did not occur on this shift BOWEL MANAGEMENT - SCORE: 7-IND TRANSFERS: BED, CHAIR, WHEELCHAIR: TRANSFERS: BED, CHAIR, WHEELCHAIR - STEP 1: Does the patient require assistance of a person or device, or need extra time with bed, chair, or whe elchair transfers? Yes. TRANSFERS: BED, CHAIR, WHEELCHAIR - STEP 2: Does the patient require the assistance of a helper? No. Patient only requires an assistive device fo r bed, chair, wheelchair transfers such as a sliding board, grab bar, or brace, OR s/he takes more th an reasonable time, OR there is a safety concern when s/he performs the transfers TRANSFERS: BED, CHAIR, WHEELCHAIR - SCORE: 6-FAHAD TRANSFERS: TOILET: Activity did not occur on this shift TRANSFERS: TOILET - SCORE: 0-UNK TRANSFERS: SHOWER: Activity did not occur on this shift TRANSFERS: SHOWER - SCORE: 0-UNK TRANSFERS: TUB: Activity did not occur on this shift TRANSFERS: TUB - SCORE: 0-UNK LOCOMOTION: WALK: LOCOMOTION: WALK - STEP 1: Does the patient need help from a person or device, or need extra time to walk 150 feet? Yes. LOCOMOTION: WALK - STEP 2: How much assistance does the patient require to walk a minimum of 150 feet? Only supervision, cuing, or coaxing LOCOMOTION: WALK - SCORE: 5-SUP LOCOMOTION: WHEELCHAIR: LOCOMOTION: WHEELCHAIR - STEP 1: Does the patient need help to go 150 feet in a wheelchair? Yes. LOCOMOTION: WHEELCHAIR - STEP 2: How much assistance does the patient need from the helper? Only supervision, cuing, or coaxing LOCOMOTION: WHEELCHAIR - SCORE: 5-SUP LOCOMOTION: STAIRS: Activity did not occur on this shift LOCOMOTION: STAIRS - SCORE: 0-UNK COMPREHENSION: COMPREHENSION - SCORE: 0-UNK EXPRESSION EXPRESSION - SCORE: 0-UNK SOCIAL INTERACTION: SOCIAL INTERACTION - SCORE: 0-UNK PROBLEM SOLVING: PROBLEM SOLVING - SCORE: 0-UNK MEMORY: MEMORY - SCORE: 0-UNK SIGNATURE PANEL: The following modified sections: Transfers: Bed, Chair, Wheelchair - Score, Transfers: Toilet - Score , Locomotion: Walk - Score, Locomotion: Wheelchair - Score, Locomotion: Stairs - Score were [electron eric] signed by Edwin Glez PTA on MonAug 31 2018 15:31:03 T-0500 (Central Daylight Time)
--- NOTE | 2018-08-31 15:39 | FAST ---
ENCOUNTER DATE AND TIME: 08/29/2018 08:00 (CDT) NAME HENRIQUE ARECHIGA DATE OF : 1940 DATE OF ADMISSION: 08/20/2018 16:21 (CDT) PHONE: AGE: 78 SSN# [id number] GENDER: Female ENCOUNTER PHYSICIAN: Dr. Rober Keller M.D. ADMISSION DIAGNOSIS: - Cardiac 09 - Cardiac Disorders () NSTEMI. EATING: Activity did not occur on this shift EATING - SCORE: 0-UNK GROOMING: Activity did not occur on this shift GROOMING - SCORE: 0-UNK BATHING: Activity did not occur on this shift BATHING - SCORE: 0-UNK DRESSING - UPPER BODY: Activity did not occur on this shift Patient is not dressing in public clothing ARTICLES SCORE Total number of steps: 0 DRESSING - UPPER BODY - SCORE: 0-UNK DRESSING - LOWER BODY: Activity did not occur on this shift Patient is not dressing in public clothing ARTICLES SCORE Total number of steps: 0 DRESSING - LOWER BODY - SCORE: 0-UNK TOILETING: Activity did not occur on this shift TOILETING - SCORE: 0-UNK BLADDER MANAGEMENT: Activity did not occur on this shift BLADDER MANAGEMENT - SCORE: 7-IND BOWEL MANAGEMENT: Activity did not occur on this shift BOWEL MANAGEMENT - SCORE: 7-IND TRANSFERS: BED, CHAIR, WHEELCHAIR: TRANSFERS: BED, CHAIR, WHEELCHAIR - STEP 1: Does the patient require assistance of a person or device, or need extra time with bed, chair, or whe elchair transfers? Yes. TRANSFERS: BED, CHAIR, WHEELCHAIR - STEP 2: Does the patient require the assistance of a helper? No. Patient only requires an assistive device fo r bed, chair, wheelchair transfers such as a sliding board, grab bar, or brace, OR s/he takes more th an reasonable time, OR there is a safety concern when s/he performs the transfers TRANSFERS: BED, CHAIR, WHEELCHAIR - SCORE: 6-FAHAD TRANSFERS: TOILET: Activity did not occur on this shift TRANSFERS: TOILET - SCORE: 0-UNK TRANSFERS: SHOWER: Activity did not occur on this shift TRANSFERS: SHOWER - SCORE: 0-UNK TRANSFERS: TUB: Activity did not occur on this shift TRANSFERS: TUB - SCORE: 0-UNK LOCOMOTION: WALK: LOCOMOTION: WALK - STEP 1: Does the patient need help from a person or device, or need extra time to walk 150 feet? Yes. LOCOMOTION: WALK - STEP 2: How much assistance does the patient require to walk a minimum of 150 feet? Only supervision, cuing, or coaxing LOCOMOTION: WALK - SCORE: 5-SUP LOCOMOTION: WHEELCHAIR: LOCOMOTION: WHEELCHAIR - STEP 1: Does the patient need help to go 150 feet in a wheelchair? Yes. LOCOMOTION: WHEELCHAIR - STEP 2: How much assistance does the patient need from the helper? Only supervision, cuing, or coaxing LOCOMOTION: WHEELCHAIR - SCORE: 5-SUP LOCOMOTION: STAIRS: LOCOMOTION: STAIRS - STEP 1: Does the patient need help to go up and down 12 to 14 stairs? Yes. LOCOMOTION: STAIRS - STEP 2: How much assistance does the patient need from the helper to go a minimum of 12 to 14 stairs? Only in cidental help such as contact guarding or steadying LOCOMOTION: STAIRS - SCORE: 4-MIN COMPREHENSION: COMPREHENSION - SCORE: 0-UNK EXPRESSION EXPRESSION - SCORE: 0-UNK SOCIAL INTERACTION: SOCIAL INTERACTION - SCORE: 0-UNK PROBLEM SOLVING: PROBLEM SOLVING - SCORE: 0-UNK MEMORY: MEMORY - SCORE: 0-UNK SIGNATURE PANEL: The following modified sections: Transfers: Bed, Chair, Wheelchair - Score, Transfers: Toilet - Score , Locomotion: Walk - Score, Locomotion: Wheelchair - Score, Locomotion: Stairs - Score were [alfonso reyes] signed by Edwin Glez PTA on MonAug 31 2018 15:38:18 T-0500 (Central Daylight Time)
[2018-08-31] MEDS: EPOETIN ALFA 10,000 UNIT/ML SQ SCH (16:52)
[2018-08-31] MEDS: GABAPENTIN 100 MG CAP PO SCH (20:00)
[2018-08-31] MEDS: DOCUSATE NA/SENNA CONC 1 TAB PO SCH (20:38)
[2018-08-31] MEDS: ATORVASTATIN 40 MG TAB PO SCH (20:39)
--- NOTE | 2018-08-31 22:05 | P.PN ---
Date of Service: 08/31/18 Vital Signs Temp Pulse Resp BP Pulse Ox 97.8 F 62 16 112/48 L 95 08/31/18 19:41 08/31/18 19:41 08/31/18 19:41 08/31/18 19:41 08/31/18 19:41 Medications Acetaminophen (Tylenol -Extra Strength) 1,000 mg PO Q6H PRN PRN Reason: Pain scale 2-4 (Mild) Stop: 09/19/18 17:01 Last Admin: 08/31/18 10:23 Dose: 1,000 mg Amiodarone HCl (Cordarone Tab) 200 mg PO DAILY JL Stop: 09/20/18 08:01 Last Admin: 08/31/18 09:15 Dose: 200 mg Apixaban (Eliquis) 2.5 mg PO BID JL Stop: 09/22/18 08:01 Last Admin: 08/31/18 20:39 Dose: 2.5 mg Atorvastatin Calcium (Lipitor) 80 mg PO BEDTIME JL Stop: 09/26/18 21:01 Last Admin: 08/31/18 20:39 Dose: 80 mg Bisacodyl (Dulcolax) 10 mg DC DAILY PRN PRN Reason: CONSTIPATION Stop: 09/27/18 14:24 Bumetanide (Bumex) 0.5 mg PO BID@0800,1700 JL Stop: 09/20/18 08:01 Last Admin: 08/31/18 16:55 Dose: 0.5 mg Calcitriol (Rocaltrol) 0.5 mcg PO DAILY JL Stop: 09/25/18 08:01 Last Admin: 08/31/18 09:13 Dose: 0.5 mcg Cholecalciferol (Vitamin D 5,000 Iu Cap) 5,000 unit PO DAILY JL Stop: 09/25/18 08:01 Last Admin: 08/31/18 09:15 Dose: 5,000 unit Clopidogrel Bisulfate (Plavix) 75 mg PO DAILY JL Stop: 09/20/18 08:01 Last Admin: 08/31/18 09:16 Dose: 75 mg Cyanocobalamin (Vitamin B-12) 1,000 mcg PO DAILY JL Stop: 09/20/18 10:01 Last Admin: 08/31/18 09:15 Dose: 1,000 mcg Dextrose (Dextrose 50% Syringe) 12.5 gm IV PRN PRN; Protocol PRN Reason: HYPOGLYCEMIA Stop: 09/19/18 17:20 Epoetin Monty (Epogen) 10,000 unit SQ MO,FR [facility] Stop: 09/26/18 17:01 Last Admin: 08/31/18 16:52 Dose: Not Given Folic Acid (Folic Acid) 1 mg PO DAILY [facility] Stop: 09/20/18 08:01 Last Admin: 08/31/18 09:15 Dose: 1 mg Gabapentin (Neurontin) 100 mg PO BID [facility] Stop: 09/30/18 20:01 Last Admin: 08/31/18 20:00 Dose: Not Given Glucagon (Glucagen) 1 mg IM 1X PRN; Protocol PRN Reason: HYPOGLYCEMIA Stop: 09/19/18 17:20 Home Med (Tradjenta 5mg) 1 tab PO DAILY [facility] Stop: 10/01/18 08:01 Insulin Glargine (Lantus) 12 units SQ DAILY WITH BREAKFAST [facility] Stop: 09/30/18 08:01 Last Admin: 08/31/18 08:11 Dose: 12 units Insulin Human Regular (Novolin -R) 0 unit SQ ACHS [facility]; Protocol Stop: 09/19/18 21:01 Last Admin: 08/31/18 16:30 Dose: Not Given Ipratropium [place] (Atrovent Neb) 0.5 mg NEB Q6HP PRN PRN Reason: SHORTNESS OF BREATH Stop: 09/20/18 09:48 Lorazepam (Ativan) 0.5 mg PO DAILY PRN PRN Reason: ANXIETY Stop: 09/30/18 15:11 Metoclopramide HCl (Reglan) 5 mg PO BIDAC [facility] Stop: 09/30/18 08:01 Last Admin: 08/31/18 16:30 Dose: Not Given Metoprolol Tartrate (Lopressor) 25 mg PO BID 6AM 6PM [facility] Stop: 09/19/18 18:01 Last Admin: 08/31/18 16:56 Dose: 25 mg Nitroglycerin (Nitrostat) 0.4 mg SL UD PRN PRN Reason: Pain scale 2-4 (Mild) Stop: 09/19/18 17:00 Nutritional Formula (Promod Liquid Protein) 30 ml PO BID [facility] Stop: 09/20/18 20:01 Last Admin: 08/31/18 20:00 Dose: Not Given Ondansetron HCl (Zofran) 4 mg PO Q4H PRN PRN Reason: NAUSEA / VOMITING Stop: 09/26/18 13:51 Last Admin: 08/31/18 20:37 Dose: 4 mg Oxymetazoline HCl (Afrin) 2 appl ZULEIMA BID PRN PRN Reason: NASAL CONGESTION Stop: 09/19/18 17:00 Pantoprazole Sodium (Protonix Tab) 40 mg PO BIDAC JL; Protocol Stop: 09/28/18 16:31 Last Admin: 08/31/18 16:57 Dose: 40 mg Senna/Docusate Sodium (Senokot-S) 2 tab PO BEDTIME JL Stop: 09/20/18 21:01 Last Admin: 08/31/18 20:38 Dose: 2 tab Sodium Biphosphate/Sodium Phosphate (Fleet Enema Adult) 133 ml DC DAILY PRN PRN Reason: CONSTIPATION Stop: 09/27/18 14:24 Thiamine HCl (Vitamin B-1) 100 mg PO DAILY JL Stop: 09/20/18 08:01 Last Admin: 08/31/18 09:15 Dose: 100 mg Lab Results (last 24 hrs) 08/31/18 20:03: POC Glucose 210 H 08/31/18 16:32: POC Glucose 127 H 08/31/18 12:02: POC Glucose 256 H 08/31/18 07:20: POC Glucose 119 08/31/18 05:58: Hgb 11.5 L 08/30/18 20:30: POC Glucose 191 H Microbiology Results 08/27/18 19:20 Clean Catch Urine Ages [place] Count - Final >100,000 CFU/ML. 08/27/18 19:20 Clean Catch Urine - Final Pseudomonas Aeruginosa Enterococcus Faecalis Assessment/ Plan: Nephrology. Right first toe pain with difficulty sleeping overnight. CPS stable without CP or SOB. No acute events overnight. Vitals, medications, blood work and imaging reviewed in the chart. General: In no apparent distress, Oriented x3, Cooperative HEENT: Atraumatic Neck: Supple Respiratory: Clear to auscultation bilaterally Cardiovascular: Regular rate/rhythm, Edema Gastrointestinal: Soft and benign, Non-distended Musculoskeletal: No clubbing, No contractures Integumentary: No rashes, No cyanosis Neurological: Normal speech Blood work reviewed in the chart. Cr 2.74 Imagings Data: EXAM DESCRIPTION: VAS - Abdomen Pelvis Scan - 01/31/2017 9:53 am CLINICAL HISTORY: I65.21, N18.3, I25.10 COMPARISON: None. FINDINGS: The bilateral kidneys are normal in size, the right measuring 9.1 x 4.7 x 4.0 cm and the left measuring 9.7 x 4.5 x 4.4 cm. Aortic velocity: 75 cm/second Right proximal renal artery: 77 cm/second Right mid renal artery: 97 cm/second Right distal renal artery: 43 cm/second Right renal arcuate artery resistive index: 0.4 Right renal artery / aorta ratio: 1.3. Left proximal renal artery: 71 cm/second Left mid renal artery: 58 cm/second Left distal renal artery: 55 cm/second Left renal arcuate artery resistive index: 1.0 Left renal artery/aorta ratio: 0.9 Normal waveforms demonstrated within the bilateral renal arteries. IMPRESSION: No evidence of hemodynamically significant stenosis within the bilateral renal arteries. Conclusions/Impression: A/ OTIS recently requiring dialysis has improved. CKD III but her new baseline may be CKD IV. Proteinuria. DM II with CKD and Polyneuropathy. HTN with CKD/ CHF. ROLDAN. Diastolic CHF, chronic. Anemia in chronic illness. GREGORY/ Secondary HyperPTH. CAD/ PAD. Moderate malnutrition. Persistent nausea concerning for DM gastroparesis. P/ Continue current POC and Medications. Start Tradjenta. Maintain nutrition. No NSAIDs. AM Labs PRN. Daily weight. PT/ OT as tolerated. Consider podiatry if persistent right toe pain.
--- NOTE | 2018-09-01 02:23 | FAST ---
SHIFT START DATE/TIME: 08/31/2018 19:00 (CDT) SHIFT END DATE/TIME: 09/01/2018 07:00 (CDT) NAME HENRIQUE ARECHIGA DATE OF : 1940 DATE OF ADMISSION: 08/20/2018 16:21 (CDT) PHONE: AGE: 78 N# [id number] GENDER: Female ENCOUNTER PHYSICIAN: Dr. Rober eKller M.D. ADMISSION DIAGNOSIS: - Cardiac 09 - Cardiac Disorders () NSTEMI. EATING: Activity did not occur on this shift EATING - SCORE: 0-UNK GROOMING: Oral care Wash, rinse, and dry face Wash, rinse, and dry hands GROOMING - STEP 1: Does the patient require the assistance of a person or device, or need extra time when grooming? Yes. GROOMING - STEP 2: Does the patient require the assistance of a helper? Yes. GROOMING - STEP 3: How much assistance does the patient require from the helper? Only prior equipment preparation/set up from the helper GROOMING - SCORE: 5-SUP BATHING: Activity did not occur on this shift BATHING - SCORE: 0-UNK DRESSING - UPPER BODY: Patient is not dressing in public clothing ARTICLES SCORE Total number of steps: 0 DRESSING - UPPER BODY - SCORE: 0-UNK DRESSING - LOWER BODY: Patient is not dressing in public clothing ARTICLES SCORE Total number of steps: 0 DRESSING - LOWER BODY - SCORE: 0-UNK TOILETING: TOILETING - STEP 1: Does the patient require the assistance of a person or device, or need extra time with toileting? Yes . TOILETING - STEP 2: Does the patient require the assistance of a helper? Yes. TOILETING - STEP 3: How much assistance does the patient require from the helper? Hands-on assistance from the helper TOILETING - STEP 4: Of the 3 tasks: 1) Adjusting clothing prior to use, 2) Cleansing of perineal area, 3) Adjusting clot jenniffer after use; How many tasks does the patient perform WITHOUT assistance of the helper? Three tasks with steadying assistance from the helper TOILETING - SCORE: 4-MIN BLADDER MANAGEMENT: BLADDER MANAGEMENT - STEP 1: Does the patient control the bladder completely and intentionally without equipment or devices or med ications, and is always continent? No. BLADDER MANAGEMENT - STEP 2: Does the patient require the assistance of a helper? Yes. BLADDER MANAGEMENT - STEP 3: How much assistance does the patient require from the helper? Only set-up of equipment - such as plac ing it within reach of the patient or emptying a device - to maintain either satisfactory voiding pat tern or managing an external device, such as an absorbent pad, ileal device, or catheter BLADDER MANAGEMENT - SCORE: 5-SUP BOWEL MANAGEMENT: Activity did not occur on this shift BOWEL MANAGEMENT - SCORE: 7-IND TRANSFERS: BED, CHAIR, WHEELCHAIR: TRANSFERS: BED, CHAIR, WHEELCHAIR - STEP 1: Does the patient require assistance of a person or device, or need extra time with bed, chair, or whe elchair transfers? Yes. TRANSFERS: BED, CHAIR, WHEELCHAIR - STEP 2: Does the patient require the assistance of a helper? Yes. TRANSFERS: BED, CHAIR, WHEELCHAIR - STEP 3: How much assistance does the patient require from the helper? Lifting of the legs TRANSFERS: BED, CHAIR, WHEELCHAIR - STEP 4: How many legs does the patient require the helper to lift? one leg TRANSFERS: BED, CHAIR, WHEELCHAIR - SCORE: 4-MIN TRANSFERS: TOILET: TRANSFERS: TOILET - STEP 1: Does the patient require the assistance of a person or device, or need extra time with toilet transfe rs? Yes. TRANSFERS: TOILET - STEP 2: Does the patient require the assistance of a helper? Yes. TRANSFERS: TOILET - STEP 3: How much assistance does the patient require from the helper? Only supervision, cuing, coaxing, OR he lp to set out transfer equipment or to lock brakes and/or lift foot rests TRANSFERS: TOILET - SCORE: 5-SUP TRANSFERS: SHOWER: Activity did not occur on this shift TRANSFERS: SHOWER - SCORE: 0-UNK TRANSFERS: TUB: Activity did not occur on this shift TRANSFERS: TUB - SCORE: 0-UNK LOCOMOTION: WALK: Activity did not occur on this shift LOCOMOTION: WALK - SCORE: 0-UNK LOCOMOTION: WHEELCHAIR: Activity did not occur on this shift LOCOMOTION: WHEELCHAIR - SCORE: 0-UNK COMPREHENSION: COMPREHENSION: TYPE: Both COMPREHENSION - STEP 1: Does the patient require help from a person or device, or need extra time to understand complex and a bstract ideas (such as current events, finances, discharge planning, medical issues, relationships, e tc)? No. COMPREHENSION - STEP 2: Does the patient need extra time, require an assistive device (such as glasses for visual comprehensi on or a hearing aid for auditory comprehension) or does s/he have mild difficulty understanding compl ex and abstract information? Yes. COMPREHENSION - SCORE: 6-FAHAD EXPRESSION EXPRESSION: TYPE: Both EXPRESSION - STEP 1: Does the patient require help from a person or device, or need extra time expressing complex and abst ract ideas (such as current events, finances, discharge planning, medical issues, relationships, etc) ? No. EXPRESSION - STEP 2: Does the patient need extra time, require an assistive device (such as augmentive communication syste m or a communication board), OR does s/he have mild difficulty expressing complex and abstract ideas (including mild dysarthria or mild word-find problems)? No. EXPRESSION - SCORE: 7-IND SOCIAL INTERACTION: SOCIAL INTERACTION - STEP 1: Does the patient require a helper to interact with others in social and therapeutic situations? No. SOCIAL INTERACTION - STEP 2: Does the patient need extra time in social situations, OR does s/he interact with staff, other patien ts, and family members ONLY in structured environments, OR does s/he require medication for social in teraction? Yes, patient needs extra time SOCIAL INTERACTION - SCORE: 6-FAHAD PROBLEM SOLVING: PROBLEM SOLVING - STEP 1: Does the patient need help from a person or device, or need extra time to solve complex problems such as managing a checking account or confronting interpersonal problems? Yes. PROBLEM SOLVING - STEP 2: Does the patient solve basic routine problems half or more of the time? Yes. PROBLEM SOLVING - STEP 3: How often does the patient need help to solve basic routine problems? 10%-24% of the time PROBLEM SOLVING - SCORE: 4-MIN MEMORY: MEMORY - STEP 1: Does the patient need help from a person or device, or need extra time to remember frequently encount ered people, daily routines, and executing requests? No. MEMORY - STEP 2: Does the patient have slight difficulty recognizing frequently encountered people, daily routines, or executing requests without the need for repetition or using self-initiated or environmental cues to remember? Yes. MEMORY - SCORE: 6-FAHAD
[2018-09-01] MEDS: METOPROLOL TAR 25 MG TAB PO SCH ×2 (05:01→17:09)
[2018-09-01 05:22] VITALS: BMI 32.9
[2018-09-01] MEDS: PANTOPRAZOLE 40MG TABLET PO SCH ×2 (07:22→17:09)
[2018-09-01] MEDS: INSULIN -REGULAR HUMAN 50 UNIT/0.5 ML ML SQ SCH ×4 (07:22→20:16)
[2018-09-01] MEDS: ONDANSETRON 4 MG (ODT) TAB PO PRN ×2 (07:22→12:10)
[2018-09-01] MEDS: METOCLOPRAMIDE 5 MG TAB PO SCH ×2 (07:23→16:30)
[2018-09-01] MEDS: PROMOD 30 ML DOSE PO SCH ×2 (07:23→20:00)
[2018-09-01] MEDS: INSULIN GLARGINE 100 UNITS/ML SQ SCH (07:24)
[2018-09-01] MEDS: GABAPENTIN 100 MG CAP PO SCH ×3 (08:00→20:08)
[2018-09-01] MEDS: CYANOCOBALAMIN 1,000 MCG TAB PO SCH (09:00)
[2018-09-01] MEDS: FOLIC ACID 1 MG TABLET PO SCH (09:01)
[2018-09-01] MEDS: CRANBERRY FRUIT EXTRACT 200 MG CAP PO SCH ×2 (09:01→20:08)
[2018-09-01] MEDS: THIAMINE HCL 100 MG TABLET PO SCH (09:01)
[2018-09-01] MEDS: BUMETANIDE 1 MG TABLET PO SCH ×2 (09:02→17:08)
[2018-09-01] MEDS: AMIODARONE HCL 200 MG TAB PO SCH (09:03)
[2018-09-01] MEDS: VITAMIN D 5,000 UNIT CAP PO SCH (09:03)
[2018-09-01] MEDS: CLOPIDOGREL 75 MG TABLET PO SCH (09:03)
[2018-09-01] MEDS: APIXABAN 2.5 MG TABLET PO SCH ×2 (09:03→20:07)
[2018-09-01] MEDS: CALCITROL 0.25 MCG CAP PO SCH (09:04)
--- NOTE | 2018-09-01 09:17 | FAST ---
SHIFT START DATE/TIME: 09/01/2018 07:00 (CDT) SHIFT END DATE/TIME: 09/01/2018 19:00 (CDT) NAME HENRIQUE ARECHIGA DATE OF : 1940 DATE OF ADMISSION: 08/20/2018 16:21 (CDT) PHONE: AGE: 78 N# [id number] GENDER: Female ENCOUNTER PHYSICIAN: Dr. Rober Keller M.D. ADMISSION DIAGNOSIS: - Cardiac 09 - Cardiac Disorders () NSTEMI. EATING: EATING - STEP 1: Does the patient require the assistance of a person or device, or need extra time when eating? Yes. EATING - STEP 2: Does the patient require the assistance of a helper? No, patient only requires an assistive device, O R s/he takes more than reasonable time to eat, OR there is a safety concern, OR s/he requires modifie d food consistency EATING - SCORE: 6-FAHAD GROOMING: Comb/brush hair Oral care Wash, rinse, and dry face Wash, rinse, and dry hands GROOMING - STEP 1: Does the patient require the assistance of a person or device, or need extra time when grooming? Yes. GROOMING - STEP 2: Does the patient require the assistance of a helper? No. The patient only requires an assistive devic e, OR takes more than reasonable time to groom, OR there is a concern for safety as the patient groom s GROOMING - SCORE: 6-FAHAD BATHING: Activity did not occur on this shift BATHING - SCORE: 0-UNK DRESSING - UPPER BODY: Activity did not occur on this shift ARTICLES SCORE Total number of steps: 0 DRESSING - UPPER BODY - SCORE: 0-UNK DRESSING - LOWER BODY: Activity did not occur on this shift ARTICLES SCORE Total number of steps: 0 DRESSING - LOWER BODY - SCORE: 0-UNK TOILETING: TOILETING - STEP 1: Does the patient require the assistance of a person or device, or need extra time with toileting? Yes . TOILETING - STEP 2: Does the patient require the assistance of a helper? Yes. TOILETING - STEP 3: How much assistance does the patient require from the helper? Hands-on assistance from the helper TOILETING - STEP 4: Of the 3 tasks: 1) Adjusting clothing prior to use, 2) Cleansing of perineal area, 3) Adjusting clot jenniffer after use; How many tasks does the patient perform WITHOUT assistance of the helper? Three tasks with steadying assistance from the helper TOILETING - SCORE: 4-MIN BLADDER MANAGEMENT: BLADDER MANAGEMENT - STEP 1: Does the patient control the bladder completely and intentionally without equipment or devices or med ications, and is always continent? No. BLADDER MANAGEMENT - STEP 2: Does the patient require the assistance of a helper? No, patient requires and independently uses an a ssistive device, such as a urinal, bedpan, bedside commode, catheter, absorbent pad, or collecting de vice BLADDER MANAGEMENT - SCORE: 6-FAHAD BOWEL MANAGEMENT: Activity did not occur on this shift BOWEL MANAGEMENT - SCORE: 7-IND TRANSFERS: BED, CHAIR, WHEELCHAIR: TRANSFERS: BED, CHAIR, WHEELCHAIR - STEP 1: Does the patient require assistance of a person or device, or need extra time with bed, chair, or whe elchair transfers? Yes. TRANSFERS: BED, CHAIR, WHEELCHAIR - STEP 2: Does the patient require the assistance of a helper? Yes. TRANSFERS: BED, CHAIR, WHEELCHAIR - STEP 3: How much assistance does the patient require from the helper? Steadying/guiding assistance TRANSFERS: BED, CHAIR, WHEELCHAIR - SCORE: 4-MIN TRANSFERS: TOILET: TRANSFERS: TOILET - STEP 1: Does the patient require the assistance of a person or device, or need extra time with toilet transfe rs? Yes. TRANSFERS: TOILET - STEP 2: Does the patient require the assistance of a helper? Yes. TRANSFERS: TOILET - STEP 3: How much assistance does the patient require from the helper? Patient performs half or more of the tr ansferring tasks TRANSFERS: TOILET - STEP 4: Does the patient need only incidental help such as contact guard or steadying during toilet transfer? Yes. TRANSFERS: TOILET - SCORE: 4-MIN TRANSFERS: SHOWER: Activity did not occur on this shift TRANSFERS: SHOWER - SCORE: 0-UNK TRANSFERS: TUB: Activity did not occur on this shift TRANSFERS: TUB - SCORE: 0-UNK LOCOMOTION: WALK: Activity did not occur on this shift LOCOMOTION: WALK - SCORE: 0-UNK LOCOMOTION: WHEELCHAIR: Activity did not occur on this shift LOCOMOTION: WHEELCHAIR - SCORE: 0-UNK COMPREHENSION: COMPREHENSION: TYPE: Both COMPREHENSION - STEP 1: Does the patient require help from a person or device, or need extra time to understand complex and a bstract ideas (such as current events, finances, discharge planning, medical issues, relationships, e tc)? No. COMPREHENSION - STEP 2: Does the patient need extra time, require an assistive device (such as glasses for visual comprehensi on or a hearing aid for auditory comprehension) or does s/he have mild difficulty understanding compl ex and abstract information? Yes. COMPREHENSION - SCORE: 6-FAHAD EXPRESSION EXPRESSION: TYPE: Both EXPRESSION - STEP 1: Does the patient require help from a person or device, or need extra time expressing complex and abst ract ideas (such as current events, finances, discharge planning, medical issues, relationships, etc) ? No. EXPRESSION - STEP 2: Does the patient need extra time, require an assistive device (such as augmentive communication syste m or a communication board), OR does s/he have mild difficulty expressing complex and abstract ideas (including mild dysarthria or mild word-find problems)? Yes. EXPRESSION - SCORE: 6-FAHAD SOCIAL INTERACTION: SOCIAL INTERACTION - STEP 1: Does the patient require a helper to interact with others in social and therapeutic situations? No. SOCIAL INTERACTION - STEP 2: Does the patient need extra time in social situations, OR does s/he interact with staff, other patien ts, and family members ONLY in structured environments, OR does s/he require medication for social in teraction? Yes, patient needs extra time SOCIAL INTERACTION - SCORE: 6-FAHAD PROBLEM SOLVING: PROBLEM SOLVING - STEP 1: Does the patient need help from a person or device, or need extra time to solve complex problems such as managing a checking account or confronting interpersonal problems? No. PROBLEM SOLVING - STEP 2: Does the patient require extra time to make decisions or solve problems, OR does s/he have slight dif ficulty reading, initiating, or self-correcting in unfamiliar situations? Yes, patient needs extra ti me. PROBLEM SOLVING - SCORE: 6-FAHAD MEMORY: MEMORY - STEP 1: Does the patient need help from a person or device, or need extra time to remember frequently encount ered people, daily routines, and executing requests? No. MEMORY - STEP 2: Does the patient have slight difficulty recognizing frequently encountered people, daily routines, or executing requests without the need for repetition or using self-initiated or environmental cues to remember? Yes. MEMORY - SCORE: 6-FAHAD SIGNATURE PANEL: The following modified sections: Eating - Score, Grooming - Score, Bathing - Score, Dressing - Upper Body - Score, Dressing - Lower Body - Score, Toileting - Score, Bladder Management - Score, Bowel Man agement - Score, Transfers: Bed, Chair, Wheelchair - Score, Transfers: Toilet - Score, Transfers: Dorothea wer - Score, Transfers: Tub - Score, Locomotion: Walk - Score, Locomotion: Wheelchair - Score, Compre hension - Score, Expression - Score, Social Interaction - Score, Problem Solving - Score, Memory - Sc ore were [electronically] signed by Hector Macias on Sat Sep 01 2018 09:17:38 GMT-0500 (Central Daylight Time)
--- NOTE | 2018-09-01 12:32 | FAST ---
ENCOUNTER DATE AND TIME: 09/01/2018 08:00 (CDT) NAME HENRIQUE ARECHIGA DATE OF : 1940 DATE OF ADMISSION: 08/20/2018 16:21 (CDT) PHONE: AGE: 78 SSN# [id number] GENDER: Female ENCOUNTER PHYSICIAN: Dr. Rober Keller M.D. ADMISSION DIAGNOSIS: - Cardiac 09 - Cardiac Disorders () NSTEMI. EATING: Activity did not occur on this shift EATING - SCORE: 0-UNK GROOMING: Activity did not occur on this shift GROOMING - SCORE: 0-UNK BATHING: Activity did not occur on this shift BATHING - SCORE: 0-UNK DRESSING - UPPER BODY: Activity did not occur on this shift Patient is not dressing in public clothing ARTICLES SCORE Total number of steps: 0 DRESSING - UPPER BODY - SCORE: 0-UNK DRESSING - LOWER BODY: Activity did not occur on this shift Patient is not dressing in public clothing ARTICLES SCORE Total number of steps: 0 DRESSING - LOWER BODY - SCORE: 0-UNK TOILETING: Activity did not occur on this shift TOILETING - SCORE: 0-UNK BLADDER MANAGEMENT: Activity did not occur on this shift BLADDER MANAGEMENT - SCORE: 7-IND BOWEL MANAGEMENT: Activity did not occur on this shift BOWEL MANAGEMENT - SCORE: 7-IND TRANSFERS: BED, CHAIR, WHEELCHAIR: TRANSFERS: BED, CHAIR, WHEELCHAIR - STEP 1: Does the patient require assistance of a person or device, or need extra time with bed, chair, or whe elchair transfers? Yes. TRANSFERS: BED, CHAIR, WHEELCHAIR - STEP 2: Does the patient require the assistance of a helper? Yes. TRANSFERS: BED, CHAIR, WHEELCHAIR - STEP 3: How much assistance does the patient require from the helper? Steadying/guiding assistance TRANSFERS: BED, CHAIR, WHEELCHAIR - SCORE: 4-MIN TRANSFERS: TOILET: Activity did not occur on this shift TRANSFERS: TOILET - SCORE: 0-UNK TRANSFERS: SHOWER: Activity did not occur on this shift TRANSFERS: SHOWER - SCORE: 0-UNK TRANSFERS: TUB: Activity did not occur on this shift TRANSFERS: TUB - SCORE: 0-UNK LOCOMOTION: WALK: LOCOMOTION: WALK - STEP 1: Does the patient need help from a person or device, or need extra time to walk 150 feet? Yes. LOCOMOTION: WALK - STEP 2: How much assistance does the patient require to walk a minimum of 150 feet? Only incidental help such as contact guarding or steadying LOCOMOTION: WALK - SCORE: 4-MIN LOCOMOTION: WHEELCHAIR: LOCOMOTION: WHEELCHAIR - STEP 1: Does the patient need help to go 150 feet in a wheelchair? Yes. LOCOMOTION: WHEELCHAIR - STEP 2: How much assistance does the patient need from the helper? Only incidental help such as around corner s or over thresholds LOCOMOTION: WHEELCHAIR - SCORE: 4-MIN LOCOMOTION: STAIRS: Activity did not occur on this shift LOCOMOTION: STAIRS - SCORE: 0-UNK COMPREHENSION: COMPREHENSION - SCORE: 0-UNK EXPRESSION EXPRESSION - SCORE: 0-UNK SOCIAL INTERACTION: SOCIAL INTERACTION - SCORE: 0-UNK PROBLEM SOLVING: PROBLEM SOLVING - SCORE: 0-UNK MEMORY: MEMORY - SCORE: 0-UNK SIGNATURE PANEL: The following modified sections: Transfers: Bed, Chair, Wheelchair - Score, Transfers: Toilet - Score , Locomotion: Walk - Score, Locomotion: Wheelchair - Score, Locomotion: Stairs - Score were [alfonso reyes] signed by Elizabeth Weaver PTA on Sat Sep 01 2018 12:31:21 GMT-0500 (Central Daylight Time)
[2018-09-01] MEDS: DOCUSATE NA/SENNA CONC 1 TAB PO SCH (20:07)
[2018-09-01] MEDS: ATORVASTATIN 40 MG TAB PO SCH (20:08)
[2018-09-02] MEDS: METOPROLOL TAR 25 MG TAB PO SCH ×2 (05:19→17:04)
[2018-09-02] MEDS: METOCLOPRAMIDE 5 MG TAB PO SCH ×2 (07:30→16:30)
[2018-09-02] MEDS: INSULIN -REGULAR HUMAN 50 UNIT/0.5 ML ML SQ SCH ×4 (07:30→20:23)
[2018-09-02] MEDS: PANTOPRAZOLE 40MG TABLET PO SCH ×2 (07:52→17:03)
[2018-09-02] MEDS: INSULIN GLARGINE 100 UNITS/ML SQ SCH (07:53)
[2018-09-02] MEDS: PROMOD 30 ML DOSE PO SCH ×2 (08:00→20:00)
[2018-09-02] MEDS: GABAPENTIN 100 MG CAP PO SCH ×2 (08:00→20:00)
[2018-09-02] MEDS: CYANOCOBALAMIN 1,000 MCG TAB PO SCH (08:33)
[2018-09-02] MEDS: CALCITROL 0.25 MCG CAP PO SCH (08:34)
[2018-09-02] MEDS: BUMETANIDE 1 MG TABLET PO SCH ×2 (08:34→17:03)
[2018-09-02] MEDS: CRANBERRY FRUIT EXTRACT 200 MG CAP PO SCH ×2 (08:34→20:21)
[2018-09-02] MEDS: VITAMIN D 5,000 UNIT CAP PO SCH (08:35)
[2018-09-02] MEDS: CLOPIDOGREL 75 MG TABLET PO SCH (08:36)
[2018-09-02] MEDS: APIXABAN 2.5 MG TABLET PO SCH ×2 (08:36→20:22)
[2018-09-02] MEDS: THIAMINE HCL 100 MG TABLET PO SCH (08:36)
[2018-09-02] MEDS: AMIODARONE HCL 200 MG TAB PO SCH (08:37)
[2018-09-02] MEDS: FOLIC ACID 1 MG TABLET PO SCH (08:37)
--- NOTE | 2018-09-02 09:59 | FAST ---
SHIFT START DATE/TIME: 09/02/2018 07:00 (CDT) SHIFT END DATE/TIME: 09/02/2018 19:00 (CDT) NAME HENRIQUE ARECHIGA DATE OF : 1940 DATE OF ADMISSION: 08/20/2018 16:21 (CDT) PHONE: AGE: 78 N# [id number] GENDER: Female ENCOUNTER PHYSICIAN: Dr. Rober Keller M.D. ADMISSION DIAGNOSIS: - Cardiac 09 - Cardiac Disorders () NSTEMI. EATING: EATING - STEP 1: Does the patient require the assistance of a person or device, or need extra time when eating? Yes. EATING - STEP 2: Does the patient require the assistance of a helper? Yes. EATING - STEP 3: Does the patient perform half or more of the eating tasks? Yes. EATING - STEP 4: Does the patient need only supervision, cuing, coaxing OR help to apply an orthosis OR help to cut fo od, open containers, pour liquids, or butter bread? Yes. EATING - SCORE: 5-SUP GROOMING: Activity did not occur on this shift GROOMING - SCORE: 0-UNK BATHING: Activity did not occur on this shift BATHING - SCORE: 0-UNK DRESSING - UPPER BODY: Activity did not occur on this shift ARTICLES SCORE Total number of steps: 0 DRESSING - UPPER BODY - SCORE: 0-UNK DRESSING - LOWER BODY: Activity did not occur on this shift ARTICLES SCORE Total number of steps: 0 DRESSING - LOWER BODY - SCORE: 0-UNK TOILETING: TOILETING - STEP 1: Does the patient require the assistance of a person or device, or need extra time with toileting? Yes . TOILETING - STEP 2: Does the patient require the assistance of a helper? Yes. TOILETING - STEP 3: How much assistance does the patient require from the helper? Hands-on assistance from the helper TOILETING - STEP 4: Of the 3 tasks: 1) Adjusting clothing prior to use, 2) Cleansing of perineal area, 3) Adjusting clot jenniffer after use; How many tasks does the patient perform WITHOUT assistance of the helper? Three tasks with steadying assistance from the helper TOILETING - SCORE: 4-MIN BLADDER MANAGEMENT: BLADDER MANAGEMENT - STEP 1: Does the patient control the bladder completely and intentionally without equipment or devices or med ications, and is always continent? No. BLADDER MANAGEMENT - STEP 2: Does the patient require the assistance of a helper? No, patient requires and independently uses an a ssistive device, such as a urinal, bedpan, bedside commode, catheter, absorbent pad, or collecting de vice BLADDER MANAGEMENT - SCORE: 6-FAHAD BOWEL MANAGEMENT: Activity did not occur on this shift BOWEL MANAGEMENT - SCORE: 7-IND TRANSFERS: BED, CHAIR, WHEELCHAIR: TRANSFERS: BED, CHAIR, WHEELCHAIR - STEP 1: Does the patient require assistance of a person or device, or need extra time with bed, chair, or whe elchair transfers? Yes. TRANSFERS: BED, CHAIR, WHEELCHAIR - STEP 2: Does the patient require the assistance of a helper? Yes. TRANSFERS: BED, CHAIR, WHEELCHAIR - STEP 3: How much assistance does the patient require from the helper? Steadying/guiding assistance TRANSFERS: BED, CHAIR, WHEELCHAIR - SCORE: 4-MIN TRANSFERS: TOILET: TRANSFERS: TOILET - STEP 1: Does the patient require the assistance of a person or device, or need extra time with toilet transfe rs? Yes. TRANSFERS: TOILET - STEP 2: Does the patient require the assistance of a helper? Yes. TRANSFERS: TOILET - STEP 3: How much assistance does the patient require from the helper? Patient performs half or more of the tr ansferring tasks TRANSFERS: TOILET - STEP 4: Does the patient need only incidental help such as contact guard or steadying during toilet transfer? No. Patient needs more than incidental help TRANSFERS: TOILET - SCORE: 3-MOD TRANSFERS: SHOWER: Activity did not occur on this shift TRANSFERS: SHOWER - SCORE: 0-UNK TRANSFERS: TUB: Activity did not occur on this shift TRANSFERS: TUB - SCORE: 0-UNK LOCOMOTION: WALK: Activity did not occur on this shift LOCOMOTION: WALK - SCORE: 0-UNK LOCOMOTION: WHEELCHAIR: Activity did not occur on this shift LOCOMOTION: WHEELCHAIR - SCORE: 0-UNK COMPREHENSION: COMPREHENSION: TYPE: Both COMPREHENSION - STEP 1: Does the patient require help from a person or device, or need extra time to understand complex and a bstract ideas (such as current events, finances, discharge planning, medical issues, relationships, e tc)? No. COMPREHENSION - STEP 2: Does the patient need extra time, require an assistive device (such as glasses for visual comprehensi on or a hearing aid for auditory comprehension) or does s/he have mild difficulty understanding compl ex and abstract information? Yes. COMPREHENSION - SCORE: 6-FAHAD EXPRESSION EXPRESSION: TYPE: Both EXPRESSION - STEP 1: Does the patient require help from a person or device, or need extra time expressing complex and abst ract ideas (such as current events, finances, discharge planning, medical issues, relationships, etc) ? No. EXPRESSION - STEP 2: Does the patient need extra time, require an assistive device (such as augmentive communication syste m or a communication board), OR does s/he have mild difficulty expressing complex and abstract ideas (including mild dysarthria or mild word-find problems)? Yes. EXPRESSION - SCORE: 6-FAHAD SOCIAL INTERACTION: SOCIAL INTERACTION - STEP 1: Does the patient require a helper to interact with others in social and therapeutic situations? No. SOCIAL INTERACTION - STEP 2: Does the patient need extra time in social situations, OR does s/he interact with staff, other patien ts, and family members ONLY in structured environments, OR does s/he require medication for social in teraction? Yes, patient needs extra time SOCIAL INTERACTION - SCORE: 6-FAHAD PROBLEM SOLVING: PROBLEM SOLVING - STEP 1: Does the patient need help from a person or device, or need extra time to solve complex problems such as managing a checking account or confronting interpersonal problems? No. PROBLEM SOLVING - STEP 2: Does the patient require extra time to make decisions or solve problems, OR does s/he have slight dif ficulty reading, initiating, or self-correcting in unfamiliar situations? Yes, patient needs extra ti me. PROBLEM SOLVING - SCORE: 6-FAHAD MEMORY: MEMORY - STEP 1: Does the patient need help from a person or device, or need extra time to remember frequently encount ered people, daily routines, and executing requests? No. MEMORY - STEP 2: Does the patient have slight difficulty recognizing frequently encountered people, daily routines, or executing requests without the need for repetition or using self-initiated or environmental cues to remember? Yes. MEMORY - SCORE: 6-FAHAD SIGNATURE PANEL: The following modified sections: Eating - Score, Grooming - Score, Bathing - Score, Dressing - Upper Body - Score, Dressing - Lower Body - Score, Toileting - Score, Bladder Management - Score, Bowel Man agement - Score, Transfers: Bed, Chair, Wheelchair - Score, Transfers: Shower - Score, Transfers: Dinh let - Score, Transfers: Tub - Score, Locomotion: Walk - Score, Locomotion: Wheelchair - Score, Compre hension - Score, Expression - Score, Social Interaction - Score, Problem Solving - Score, Memory - Sc ore were [electronically] signed by Hector aMcias on MonSep 02 2018 09:58:12 GMT-0500 (Central Daylight Time)
[2018-09-02] MEDS: ONDANSETRON 4 MG (ODT) TAB PO PRN (20:21)
[2018-09-02] MEDS: ATORVASTATIN 40 MG TAB PO SCH (20:21)
[2018-09-02] MEDS: DOCUSATE NA/SENNA CONC 1 TAB PO SCH ×2 (20:21→21:00)
--- NOTE | 2018-09-03 02:17 | FAST ---
SHIFT START DATE/TIME: 09/02/2018 19:00 (CDT) SHIFT END DATE/TIME: 09/03/2018 07:00 (CDT) NAME HENRIQUE ARECHIGA DATE OF : 1940 DATE OF ADMISSION: 08/20/2018 16:21 (CDT) PHONE: AGE: 78 N# [id number] GENDER: Female ENCOUNTER PHYSICIAN: Dr. Rober Keller M.D. ADMISSION DIAGNOSIS: - Cardiac 09 - Cardiac Disorders () NSTEMI. EATING: Activity did not occur on this shift EATING - SCORE: 0-UNK GROOMING: Wash, rinse, and dry hands GROOMING - STEP 1: Does the patient require the assistance of a person or device, or need extra time when grooming? Yes. GROOMING - STEP 2: Does the patient require the assistance of a helper? No. The patient only requires an assistive devic e, OR takes more than reasonable time to groom, OR there is a concern for safety as the patient groom s GROOMING - SCORE: 6-FAHAD BATHING: Activity did not occur on this shift BATHING - SCORE: 0-UNK DRESSING - UPPER BODY: Patient is not dressing in public clothing ARTICLES SCORE Total number of steps: 0 DRESSING - UPPER BODY - SCORE: 0-UNK DRESSING - LOWER BODY: Patient is not dressing in public clothing ARTICLES SCORE Total number of steps: 0 DRESSING - LOWER BODY - SCORE: 0-UNK TOILETING: TOILETING - STEP 1: Does the patient require the assistance of a person or device, or need extra time with toileting? Yes . TOILETING - STEP 2: Does the patient require the assistance of a helper? Yes. TOILETING - STEP 3: How much assistance does the patient require from the helper? Hands-on assistance from the helper TOILETING - STEP 4: Of the 3 tasks: 1) Adjusting clothing prior to use, 2) Cleansing of perineal area, 3) Adjusting clot jenniffer after use; How many tasks does the patient perform WITHOUT assistance of the helper? Three tasks with steadying assistance from the helper TOILETING - SCORE: 4-MIN BLADDER MANAGEMENT: BLADDER MANAGEMENT - STEP 1: Does the patient control the bladder completely and intentionally without equipment or devices or med ications, and is always continent? No. BLADDER MANAGEMENT - STEP 2: Does the patient require the assistance of a helper? No, patient requires and independently uses an a ssistive device, such as a urinal, bedpan, bedside commode, catheter, absorbent pad, or collecting de vice BLADDER MANAGEMENT - SCORE: 6-FAHAD BOWEL MANAGEMENT: Activity did not occur on this shift BOWEL MANAGEMENT - SCORE: 7-IND TRANSFERS: BED, CHAIR, WHEELCHAIR: TRANSFERS: BED, CHAIR, WHEELCHAIR - STEP 1: Does the patient require assistance of a person or device, or need extra time with bed, chair, or whe elchair transfers? Yes. TRANSFERS: BED, CHAIR, WHEELCHAIR - STEP 2: Does the patient require the assistance of a helper? Yes. TRANSFERS: BED, CHAIR, WHEELCHAIR - STEP 3: How much assistance does the patient require from the helper? Steadying/guiding assistance TRANSFERS: BED, CHAIR, WHEELCHAIR - SCORE: 4-MIN TRANSFERS: TOILET: TRANSFERS: TOILET - STEP 1: Does the patient require the assistance of a person or device, or need extra time with toilet transfe rs? Yes. TRANSFERS: TOILET - STEP 2: Does the patient require the assistance of a helper? Yes. TRANSFERS: TOILET - STEP 3: How much assistance does the patient require from the helper? Only supervision, cuing, coaxing, OR he lp to set out transfer equipment or to lock brakes and/or lift foot rests TRANSFERS: TOILET - SCORE: 5-SUP TRANSFERS: SHOWER: Activity did not occur on this shift TRANSFERS: SHOWER - SCORE: 0-UNK TRANSFERS: TUB: Activity did not occur on this shift TRANSFERS: TUB - SCORE: 0-UNK LOCOMOTION: WALK: Activity did not occur on this shift LOCOMOTION: WALK - SCORE: 0-UNK LOCOMOTION: WHEELCHAIR: Activity did not occur on this shift LOCOMOTION: WHEELCHAIR - SCORE: 0-UNK COMPREHENSION: COMPREHENSION: TYPE: Both COMPREHENSION - STEP 1: Does the patient require help from a person or device, or need extra time to understand complex and a bstract ideas (such as current events, finances, discharge planning, medical issues, relationships, e tc)? No. COMPREHENSION - STEP 2: Does the patient need extra time, require an assistive device (such as glasses for visual comprehensi on or a hearing aid for auditory comprehension) or does s/he have mild difficulty understanding compl ex and abstract information? Yes. COMPREHENSION - SCORE: 6-FAHAD EXPRESSION EXPRESSION: TYPE: Both EXPRESSION - STEP 1: Does the patient require help from a person or device, or need extra time expressing complex and abst ract ideas (such as current events, finances, discharge planning, medical issues, relationships, etc) ? No. EXPRESSION - STEP 2: Does the patient need extra time, require an assistive device (such as augmentive communication syste m or a communication board), OR does s/he have mild difficulty expressing complex and abstract ideas (including mild dysarthria or mild word-find problems)? Yes. EXPRESSION - SCORE: 6-FAHAD SOCIAL INTERACTION: SOCIAL INTERACTION - STEP 1: Does the patient require a helper to interact with others in social and therapeutic situations? No. SOCIAL INTERACTION - STEP 2: Does the patient need extra time in social situations, OR does s/he interact with staff, other patien ts, and family members ONLY in structured environments, OR does s/he require medication for social in teraction? Yes, patient needs extra time SOCIAL INTERACTION - SCORE: 6-FAHAD PROBLEM SOLVING: PROBLEM SOLVING - STEP 1: Does the patient need help from a person or device, or need extra time to solve complex problems such as managing a checking account or confronting interpersonal problems? Yes. PROBLEM SOLVING - STEP 2: Does the patient solve basic routine problems half or more of the time? Yes. PROBLEM SOLVING - STEP 3: How often does the patient need help to solve basic routine problems? 10%-24% of the time PROBLEM SOLVING - SCORE: 4-MIN MEMORY: MEMORY - STEP 1: Does the patient need help from a person or device, or need extra time to remember frequently encount ered people, daily routines, and executing requests? No. MEMORY - STEP 2: Does the patient have slight difficulty recognizing frequently encountered people, daily routines, or executing requests without the need for repetition or using self-initiated or environmental cues to remember? Yes. MEMORY - SCORE: 6-FAHAD SIGNATURE PANEL: The following modified sections: Eating - Score, Grooming - Score, Dressing - Upper Body - Score, Ishmael ssing - Lower Body - Score, Toileting - Score, Bladder Management - Score, Bowel Management - Score, Transfers: Bed, Chair, Wheelchair - Score, Transfers: Toilet - Score, Transfers: Shower - Score, Booker sfers: Tub - Score, Locomotion: Walk - Score, Locomotion: Wheelchair - Score, Comprehension - Score, Expression - Score, Social Interaction - Score, Problem Solving - Score, Memory - Score were [electro nically] signed by Naomy Cormier CNA on MonSep 03 2018 02:16:30 GMT-0500 (Central Daylight Time)
[2018-09-03] MEDS: METOPROLOL TAR 25 MG TAB PO SCH (05:24)
[2018-09-03 06:02] LABS: Absolute Lymphocytes (CBC) 1.1 K/uL (0.7-4.9); Basophils % 1.1 % (0-1.3); Eosinophils % 5.8 % (0-4.4); Hematocrit 34.8 % (36.0-45.0); Lymphocytes % 21.2 % (15.3-44.8); MPV 8.7 fL (7.6-11.3); Monocytes % 14.8 % (3.3-12.3); RBC Red Blood Cell Count 3.56 M/uL (3.86-4.86)
[2018-09-03 06:52] VITALS: BP 134/57; TEMP 97
[2018-09-03] MEDS: INSULIN -REGULAR HUMAN 50 UNIT/0.5 ML ML SQ SCH ×2 (07:30→12:20)
[2018-09-03] MEDS: METOCLOPRAMIDE 5 MG TAB PO SCH (07:30)
[2018-09-03] MEDS: PROMOD 30 ML DOSE PO SCH (08:00)
[2018-09-03] MEDS: CRANBERRY FRUIT EXTRACT 200 MG CAP PO SCH (08:51)
[2018-09-03] MEDS: BUMETANIDE 1 MG TABLET PO SCH (08:51)
[2018-09-03] MEDS: CLOPIDOGREL 75 MG TABLET PO SCH (08:52)
[2018-09-03] MEDS: AMIODARONE HCL 200 MG TAB PO SCH (08:53)
[2018-09-03] MEDS: GABAPENTIN 100 MG CAP PO SCH (08:53)
[2018-09-03] MEDS: PANTOPRAZOLE 40MG TABLET PO SCH (08:54)
[2018-09-03] MEDS: FOLIC ACID 1 MG TABLET PO SCH (08:54)
[2018-09-03] MEDS: VITAMIN D 5,000 UNIT CAP PO SCH (08:54)
[2018-09-03] MEDS: THIAMINE HCL 100 MG TABLET PO SCH (08:54)
[2018-09-03] MEDS: CYANOCOBALAMIN 1,000 MCG TAB PO SCH (08:55)
[2018-09-03] MEDS: CALCITROL 0.25 MCG CAP PO SCH (08:55)
[2018-09-03] MEDS: APIXABAN 2.5 MG TABLET PO SCH (08:57)
[2018-09-03] MEDS: INSULIN GLARGINE 100 UNITS/ML SQ SCH (08:58)
--- NOTE | 2018-09-03 21:02 | P.PN ---
Date of Service: 09/03/18 Vital Signs Temp Pulse Resp BP Pulse Ox 97 F 81 16 134/57 L 95 09/03/18 06:51 09/03/18 06:51 09/03/18 06:51 09/03/18 06:51 09/03/18 06:51 Lab Results (last 24 hrs) 09/03/18 12:09: POC Glucose 236 H 09/03/18 06:54: POC Glucose 139 H 09/03/18 05:53: WBC 5.2 D, RBC 3.56 L, Hgb 11.3 L, Hct 34.8 L, MCV 97.8, MCH 31.8, MCHC 32.5, RDW 16.0 H, Plt Count 237, MPV 8.7, Neutrophils % 57.1, Lymphocytes % 21.2, Monocytes % 14.8 H, Eosinophils % 5.8 H, Basophils % 1.1, Absolute Neutrophils 3.0, Absolute Lymphocytes 1.1, Absolute Monocytes 0.8, Absolute Eosinophils 0.3, Absolute Basophils 0.1 09/02/18 20:12: POC Glucose 218 H Microbiology Results 08/27/18 19:20 Clean Catch Urine [place] Count - Final >100,000 CFU/ML. 08/27/18 19:20 Clean Catch Urine - Final Pseudomonas Aeruginosa Enterococcus Faecalis Assessment/ Plan: Nephrology. Feeling better. CPS stable without CP or SOB. No acute events overnight. Vitals, medications, blood work and imaging reviewed in the chart. General: In no apparent distress, Oriented x3, Cooperative HEENT: Atraumatic Neck: Supple Respiratory: Clear to auscultation bilaterally Cardiovascular: Regular rate/rhythm, Edema Gastrointestinal: Soft and benign, Non-distended Musculoskeletal: No clubbing, No contractures Integumentary: No rashes, No cyanosis Neurological: Normal speech Blood work reviewed in the chart. Cr 2.74 Imagings Data: EXAM DESCRIPTION: VAS - Abdomen Pelvis Scan - 01/31/2017 9:53 am CLINICAL HISTORY: I65.21, N18.3, I25.10 COMPARISON: None. FINDINGS: The bilateral kidneys are normal in size, the right measuring 9.1 x 4.7 x 4.0 cm and the left measuring 9.7 x 4.5 x 4.4 cm. Aortic velocity: 75 cm/second Right proximal renal artery: 77 cm/second Right mid renal artery: 97 cm/second Right distal renal artery: 43 cm/second Right renal arcuate artery resistive index: 0.4 Right renal artery / aorta ratio: 1.3. Left proximal renal artery: 71 cm/second Left mid renal artery: 58 cm/second Left distal renal artery: 55 cm/second Left renal arcuate artery resistive index: 1.0 Left renal artery/aorta ratio: 0.9 Normal waveforms demonstrated within the bilateral renal arteries. IMPRESSION: No evidence of hemodynamically significant stenosis within the bilateral renal arteries. Conclusions/Impression: A/ OTIS recently requiring dialysis has improved. CKD III but her new baseline may be CKD IV. Proteinuria. DM II with CKD and Polyneuropathy. HTN with CKD/ CHF. ROLDAN. Diastolic CHF, chronic. Anemia in chronic illness. GREGORY/ Secondary HyperPTH. CAD/ PAD. Moderate malnutrition. Persistent nausea concerning for DM gastroparesis. P/ Continue current POC and Medications. Maintain nutrition. No NSAIDs. AM Labs PRN. Daily weight. PT/ OT as tolerated. Case discussed with Dr. Keller.
--- NOTE | 2018-09-05 15:50 | FAST ---
ENCOUNTER DATE AND TIME: 09/03/2018 08:00 (CDT) NAME HENRIQUE ARECHIGA DATE OF : 1940 DATE OF ADMISSION: 08/20/2018 16:21 (CDT) PHONE: AGE: 78 SSN# [id number] GENDER: Female ENCOUNTER PHYSICIAN: Dr. Rober Keller M.D. ADMISSION DIAGNOSIS: - Cardiac 09 - Cardiac Disorders () NSTEMI. EATING: Activity did not occur on this shift EATING - SCORE: 0-UNK GROOMING: Activity did not occur on this shift GROOMING - SCORE: 0-UNK BATHING: Activity did not occur on this shift BATHING - SCORE: 0-UNK DRESSING - UPPER BODY: Activity did not occur on this shift Patient is not dressing in public clothing ARTICLES SCORE Total number of steps: 0 DRESSING - UPPER BODY - SCORE: 0-UNK DRESSING - LOWER BODY: Activity did not occur on this shift Patient is not dressing in public clothing ARTICLES SCORE Total number of steps: 0 DRESSING - LOWER BODY - SCORE: 0-UNK TOILETING: Activity did not occur on this shift TOILETING - SCORE: 0-UNK BLADDER MANAGEMENT: Activity did not occur on this shift BLADDER MANAGEMENT - SCORE: 7-IND BOWEL MANAGEMENT: Activity did not occur on this shift BOWEL MANAGEMENT - SCORE: 7-IND TRANSFERS: BED, CHAIR, WHEELCHAIR: TRANSFERS: BED, CHAIR, WHEELCHAIR - STEP 1: Does the patient require assistance of a person or device, or need extra time with bed, chair, or whe elchair transfers? Yes. TRANSFERS: BED, CHAIR, WHEELCHAIR - STEP 2: Does the patient require the assistance of a helper? No. Patient only requires an assistive device fo r bed, chair, wheelchair transfers such as a sliding board, grab bar, or brace, OR s/he takes more th an reasonable time, OR there is a safety concern when s/he performs the transfers TRANSFERS: BED, CHAIR, WHEELCHAIR - SCORE: 6-FAHAD TRANSFERS: TOILET: Activity did not occur on this shift TRANSFERS: TOILET - SCORE: 0-UNK TRANSFERS: SHOWER: Activity did not occur on this shift TRANSFERS: SHOWER - SCORE: 0-UNK TRANSFERS: TUB: Activity did not occur on this shift TRANSFERS: TUB - SCORE: 0-UNK LOCOMOTION: WALK: LOCOMOTION: WALK - STEP 1: Does the patient need help from a person or device, or need extra time to walk 150 feet? No. LOCOMOTION: WALK - STEP 2: Does the patient need an assistive device (such as an orthosis, prosthesis, crutches, or walker) to g o 150 feet, OR does s/he take more than reasonable time, OR is there a concern for safety? Yes, the p atient needs an assistive device LOCOMOTION: WALK - SCORE: 6-FAHAD LOCOMOTION: WHEELCHAIR: Activity did not occur on this shift LOCOMOTION: WHEELCHAIR - SCORE: 0-UNK LOCOMOTION: STAIRS: LOCOMOTION: STAIRS - STEP 1: Does the patient need help to go up and down 12 to 14 stairs? No. LOCOMOTION: STAIRS - STEP 2: Does the patient require an assistive device - such as handrails or cane - to go up and down one flig ht of stairs, OR does s/he take more than reasonable time, OR is there a concern for safety? Yes, the patient requires an assistive device LOCOMOTION: STAIRS - SCORE: 6-FAHAD COMPREHENSION: COMPREHENSION - SCORE: 0-UNK EXPRESSION EXPRESSION - SCORE: 0-UNK SOCIAL INTERACTION: SOCIAL INTERACTION - SCORE: 0-UNK PROBLEM SOLVING: PROBLEM SOLVING - SCORE: 0-UNK MEMORY: MEMORY - SCORE: 0-UNK SIGNATURE PANEL: The following modified sections: Transfers: Bed, Chair, Wheelchair - Score, Transfers: Toilet - Score , Locomotion: Walk - Score, Locomotion: Wheelchair - Score, Locomotion: Stairs - Score were [electron [email or web address]] signed by Edwin Glez PTA on MonSep 05 2018 15:49:24 GMT-0500 (Central Daylight Time)
== END 2018-09-03 14:30 | disposition home or self-care (01) | DRG 281 ==
LOC: 5TH 08-20 16:21
PROVIDERS: ADMIT Psychiatry & Neurology Neurology with Special Qualifications in Child Neurology; ATTEND Psychiatry & Neurology Neurology with Special Qualifications in Child Neurology
DX: I21.4 Non-ST elevation (NSTEMI) myocardial infarction (principal); I13.0 Hypertensive heart and chronic kidney disease with heart failure and stage 1 through stage 4 chronic kidney disease, or unspecified chronic kidney disease; I50.32 Chronic diastolic (congestive) heart failure; E44.0 Moderate protein-calorie malnutrition; N18.4 Chronic kidney disease, stage 4 (severe); N17.9 Acute kidney failure, unspecified; N25.81 Secondary hyperparathyroidism of renal origin; E11.22 Type 2 diabetes mellitus with diabetic chronic kidney disease; E11.40 Type 2 diabetes mellitus with diabetic neuropathy, unspecified; D69.6 Thrombocytopenia, unspecified; I25.10 Atherosclerotic heart disease of native coronary artery without angina pectoris; I48.91 Unspecified atrial fibrillation; J44.9 Chronic obstructive pulmonary disease, unspecified; S31.104D Unspecified open wound of abdominal wall, left lower quadrant without penetration into peritoneal cavity, subsequent encounter; E78.5 Hyperlipidemia, unspecified; G47.33 Obstructive sleep apnea (adult) (pediatric); D63.8 Anemia in other chronic diseases classified elsewhere
CPT/HCPCS: 36415; 71045; 74018; 80048; 81003; 81015; 82040; 82962; 83036; 83735; 84134; 85014; 85018; 85025; 87077; 87086; 87088; 87186; 92610; 97110; 97112; 97116; 97150; 97162; 97167; 97530; 97542; J0885; J1644; J3420

== ENCOUNTER 2018-09-10 08:50 | Inpatient (IN) | payer OTHER ==
--- OUTSIDE RECORDS SUMMARY | 2018-09-10 08:56 | XMS REPORT | Clinical Summary ---
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 nitroglycerin Put 1 pill under 0 08/20/19 Active (NITROSTAT) 0.4 MG tongue every 5min 9 20 SL tablet as needed for chest pain.No more than 3 doses in 15min.. mINOCYCLine Take 1 capsule (100 0 08/20/19 Active (MINOCIN,DYNACIN) mg total) by mouth 9 20 100 MG capsule every 12 (twelve) hours Continue as long as patient has open, draining wound. LORazepam (ATIVAN) Take 1 tablet (0.5 0 [...] MG mouth every 9 19 tablet evening. oxymetazoline 2 sprays by Nasal 30 mL 0 08/24/19 (AFRIN) 0.05 % route 2 (two) times 9 19 nasal spray daily as needed (epistaxis) for up to 3 days. meropenem (MERREM) Inject 500 mg 0 08/24/19 MBP 500 mg in 100 intravenously daily 9 19 mL NS for 3 days. Active Problems Problem Noted Date Chronic systolic CHF (congestive heart failure) 08/20/2018 Acute kidney injury superimposed on CKD 08/20/2018 CKD (chronic kidney disease) stage 4, GFR 15-29 ml/min 08/01/2018 IDDM (insulin dependent diabetes mellitus) 08/01/2018 NSTEMI s/p Impella PCI by Dr. Todd 08/01/18 08/01/2018 Unstable angina 07/31/2018 Encounters Date Type Specialty Care Team Description 08/21/2018 Documentation Transplant Haley Delacruz Carli 08/07/2018 Surgery Spencer Todd R & L CATH / MD Дмитрий CORONARY ANGIOS / PCI 08/02/2018 Travel 08/01/2018 Surgery Spencer Todd CATH & PCI MD Дмитрий 08/01/2018 Anesthesia Event Sajan Mendoza MD 07/31/2018 - Hospital Encounter Cardiology Tina Christianson Unstable angina ( [facility]) (Primary Dx); 08/20/2018 MD Olman CKD (chronic kidney disease) stage 4, GFR 15-29 ml/min ([facility]); Deo Sung, NSTEMI (non-ST elevated myocardial infarction) ([facility]); Acute hypoxemic respiratory failure ([facility]); Edie OTIS (acute kidney injury) ([facility]); MD Daniel NSTEMI s/p Impella PCI by Dr. 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 Device Shelf Model / Identifier Expiration Serial / Date Lot Stent Synergy Mr [id number] - [id number] IMPLANTS N/A: BOSTON [id number] 04/04/2020 [id number] / Implanted: Qty: 1 on 08/01/2018 by Spencer Todd MD Coronary SCI:INTERV / CARDIOLOGY [id number] Stent [employer] Mr [id number] - [id number] IMPLANTS N/A: BOSTON [id number] 04/04/2020 [id number] / Implanted: Qty: 1 on 08/01/2018 by Spencer Todd MD Coronary SCI:INTERV / CARDIOLOGY [id number] Stent [employer] Mr [id number] - [id number] IMPLANTS N/A: BOSTON [id number] 04/01/2020 [id number] / Implanted: Qty: 1 on 08/01/2018 by Spencer Todd MD Coronary SCI:INTERV / CARDIOLOGY [id number] Stent Synergy Otw [id number] - [id number] IMPLANTS Left: BOSTON [id number] 05/16/2020 [id number] / Implanted: Qty: 1 on 08/07/2018 by Spencer Todd MD Coronary SCI:INTERV / CARDIOLOGY [id number] Stent [employer]nergy Otw [id number] - [id number] IMPLANTS Right: BOSTON [id number] 04/30/2020 [id number] / Implanted: Qty: 1 on 08/07/2018 by Spencer Todd MD Coronary SCI:INTERV / CARDIOLOGY [id number] Stent [employer]nergy Otw [id number] - [id number] IMPLANTS Right: BOSTON [id number] 05/21/2020 [id number] / Implanted: Qty: 1 on 08/07/2018 by Spencer Todd MD Coronary SCI:INTERV / CARDIOLOGY [id number] Stent [employer] Mr [id number] - [id number] IMPLANTS Right: BOSTON [id number] 04/10/2020 [id number] / Implanted: Qty: 1 on 08/07/2018 by Spencer Todd MD Coronary SCI:INTERV / CARDIOLOGY [id number] Stent Synergy Otw [id number] - [id number] IMPLANTS Right: BOSTON [id number] 04/15/2020 [id number] / Implanted: Qty: 1 on 08/07/2018 by Spencer Todd MD Coronary SCI:INTERV / CARDIOLOGY [id number] Procedures Procedure Name Priority Date/Time Associated Comments Diagnosis VASCULAR DIAGRAM -SCAN 08/24/2018 12:15 PM CDT RHYTHM STRIP - SCAN 08/22/2018 10:41 AM CDT VASCULAR DIAGRAM -SCAN 08/21/2018 11:01 AM CDT CARDIAC CATH REPORT - 08/21/2018 11:00 SCAN AM CDT RHYTHM STRIP - SCAN 08/21/2018 11:00 AM CDT RHYTHM STRIP - SCAN 08/21/2018 11:00 AM CDT CARDIAC CATH REPORT - 08/21/2018 11:00 SCAN AM CDT POCT-GLUCOSE METER Routine 08/20/2018 12:04 Results for [...] 390 ms QTC Calculation(Bazett) 492 ms P [place] 68 degrees R [place] 41 degrees T [place] 107 degrees Normal sinus rhythm Low voltage [...] 382 ms QTC Calculation(Bazett) 495 ms P [place] 80 degrees R [place] 60 degrees T [place] 61 degrees Sinus tachycardia Low voltage QRS [...] 448 ms QTC Calculation(Bazett) 469 ms P [place] 52 degrees R [place] 15 degrees [place] 79 degrees Normal sinus rhythm Septal infarct , age undetermined Abnormal ECG No previous ECGs available after 09/09/2017 Results VASCULAR DIAGRAM -SCAN (08/24/2018 12:15 PM CDT)Only the most recent of2 resultswithin the time period is included. Narrative Performed At RHYTHM STRIP - SCAN (08/22/2018 10:41 AM CDT)Only the most recent of3 resultswithin the time period is included. Narrative Performed At CARDIAC CATH REPORT - SCAN (08/21/2018 11:00 AM CDT) Narrative Performed At CARDIAC CATH REPORT - SCAN (08/21/2018 11:00 AM CDT) Narrative Performed At POC-Glucose meter (08/20/2018 12:04 PM CDT)Only the most recent of92 resultswithin the time period is included. POC-Glucose Meter 111 (H)Comment: TESTED AT 70 - 110 mg/dL [facility] [address] [facility] [address] Specimen Blood Performing Organization Address City/State/Zipcode Phone Number [address] [address] CENTER CBC with platelet count + automated diff (08/20/2018 9:27 AM CDT)Only the most recent of17 resultswithin the time period is included. WBC 4.7 3.5 - 10.5 K/L [facility] RBC 3.14 (L) 3.93 - 5.22 M/L [facility] Hemoglobin 10.1 (L) 11.2 - 15.7 GM/DL [facility] Hematocrit 34.0 (L) 34.1 - 44.9 % [facility] MCV 108.3 (H)Comment: 79.4 - 94.8 fL [facility] Discordant results [facility] compared to previous result; clinical correlation required. MCH 32.2 25.6 - 32.2 pg [facility] MCHC 29.7 (L) 32.2 - 35.5 GM/DL [facility] RDW 18.5 (H) 11.7 - 14.4 % [facility] Platelets 186 150 - 450 K/CU MM [facility] MPV 9.5 9.4 - 12.3 fL [facility] nRBC 0 0 - 0 /100 WBC [facility] % Neutros 67 % [facility] % Lymphs 14 % [facility] % Monos 14 % [facility] % Eos 3 % [facility] % Baso 1 % [facility] # Neutros 3.16 1.56 - 6.13 K/L [facility] # Lymphs 0.67 (L) 1.18 - 3.74 K/L [facility] # Monos 0.65 (H) 0.24 - 0.36 K/L [facility] # Eos 0.15 0.04 - 0.36 K/L [facility] # Baso 0.03 0.01 - 0.08 K/L [facility] Immature 1 0 - 1 % [facility] Granulocytes-[facility] Specimen Blood Performing Organization Address City/State/Zipcode Phone Number [facility] [address] [place] [address] CENTER Basic Metabolic Panel (08/20/2018 3:38 AM CDT)Only the most recent of17 resultswithin the time period is included. Sodium 136 136 - 145 meq/L [facility] Potassium 4.0 3.5 - 5.1 meq/L [facility] Chloride 100 98 - 107 meq/L [facility] CO2 26 22 - 29 meq/L [facility] BUN 55 (H) 7 - 21 mg/dL [facility] Creatinine 2.87 (H) 0.57 - 1.25 mg/dL [facility] Glucose 79 70 - 105 mg/dL [facility] Calcium 8.6 8.4 - 10.2 mg/dL [facility] EGFR 16Comment: ESTIMATED GFR IS mL/min/1.73 sq m [facility] NOT ACCURATE CREATININE [facility] CENTER CLEARANCE IN PREDICTING GLOMERULAR FILTRATION RATE. ESTIMATED GFR IS NOT APPLICABLE FOR DIALYSIS PATIENTS. Specimen Blood Performing Organization Address City/State/Zipcode Phone Number [facility] [address] [place] [address] [phone] pelvis without IV contrast (08/16/2018 2:38 AM CDT) Specimen Narrative Performed At FINAL REPORT [employer] RIS CT pelvis without contrast HISTORY: left groin/femoral [...] MD Report Verified Date/Time:08/16/2018 08:42:53 Reading Location: [facility] Radiology Reading Room Procedure Note Interface, External [...] Report Verified Date/Time: 08/16/2018 08:42:53 Reading Location: [facility] Radiology Reading Room Performing Organization Address City/State/Zipcode Phone Number [employer] ECHOCARDIOGRAM REPORT - SCAN (08/15/2018 9:12 PM CDT) Narrative Performed At Limited 2D Echocardiogram (08/15/2018 3:53 PM CDT) Ejection Fraction [facility] Specimen Narrative Performed At Transthoracic Echocardiography Report (TTE) [facility] Demographics Patient NameHENRIQUE ARECHIGA Date of Study08/15/2018 ESCOBDEO Gender Female Visit [id number] Race [id number] [facility] 1940 [facility] Age 78 year(s) SonographerPretty Long RDCS Bag Cutter Amber Kaplan RDCS Interpreting Nat Pettit MD [...] inferolateral. Beauchamp's method of disk assessment is zkbxdbvdyp-wq-fzsyju reduced (30%) . 2. The right ventricular [...] moderately enlarged (female - LVED vol -71-80ml/m2). Vrhxvqbg-yb-chxszh concentric LV hypertrophy. Global LV systolic function pxzmkjqh-xq-cuirvneb reduced . LVEF by Beauchamp's method of disk assessment is qpupopqrfq-kx-yyajqx reduced (30%) . The following segment(s) appear [...] Name HENRIQUE ARECHIGA Date of Study 08/15/2018 ESCOBDEO Gender Female Visit Number [id number] Race Room Number [id number] Number Date of 1940 Referring Peyton Choe Physician Age 78 year(s) Manager Poker Pretty Long RDCS Bag Cutter Amber Kaplan RDCS Interpreting Nat Pettit MD [...] inferolateral. Beauchamp's method of disk assessment is fbwkjzssan-lq-vaolxn reduced (30%) . 2. The right ventricular [...] moderately enlarged (female - LVED vol -71-80ml/m2). Ucmesieq-sm-lkfamf concentric LV hypertrophy. Global LV systolic function ntpqqhrm-vs-ocilfiwg reduced . LVEF by Beauchamp's method of disk assessment is fqywftjnao-vi-ltqrqb reduced (30%) . The following segment(s) appear [...] ml/m^2 LVESVI: 54 ml/m^2 Performing Organization Address City/[facility]/Zipcode Phone Number [facility] Urinalysis w/Microscopic + Reflex to Culture (08/14/2018 10:53 AM CDT)Only the most recent of2 resultswithin the time period is included. Color, UA Light Yellow [facility] Clarity, UA Hazy [facility] Specific [place], UA 1.009 1.001 - 1.035 [facility] pH, UA 6.0 5.0 - 8.0 [facility] Protein, UA 30 mg/dL (A) Negative [facility] Glucose, UA Negative Negative [facility] Ketones, UA Negative Negative [facility] Bilirubin, UA Negative Negative [facility] Blood, UA Small (A) Negative [facility] Nitrite, UA Negative Negative [facility] Leukocytes, UA Large (A) Negative [facility] Urobilinogen, UA 0.2 0.2 - 1.0 mg/dL [facility] RBC, UA 0 /HPF [facility] WBC, UA >182 /HPF [facility] Bacteria, UA Many [facility] Squam Epithel, UA <1 /HPF [facility] Renal Epithelial 15 /HPF [facility] WBC Casts 14 /LPF [facility] Specimen Source [facility] Specimen Urine Performing Organization Address City/State/Zipcode Phone Number [facility] [address] [place] [address] CENTER Urine culture (08/14/2018 10:53 AM CDT)Only the most recent of2 resultswithin the time period is included. Result >100,000 col/mL Raoultella [facility] ornithinolytic (A) MEDICAL CENTER Gram Stain Result 4+ gram negative rods [facility] Gram Stain Result 4+ WBCs [facility] Specimen Urine Organism Antibiotic Method Susceptibility Raoultella [...] Resistant Performing Organization Address City/State/Zipcode Phone Number [address] [address] [phone] CENTER Respiratory Panel [facility] (08/14/2018 10:18 AM CDT) Human Metapneumovirus Not detected Not detected, [facility] Rhinovirus Not detected Not detected, [facility] [employer]ocal [facility] Influenza A Not detected Not detected, [facility] INFLUENZA A (NO SUBTYPE) Not detected, [facility] [employer] [facility] Influenza A subtype H1 Not detected, [facility] [employer] [facility] Influenza A Subtype H3 Not detected, [facility] Influenza A Subtype H1-2009 Not detected, [facility] Influenza B Not detected Not detected, [facility] Respiratory Syncytial Virus Not detected Not detected, [facility] Parainfluenza Virus 1 Not detected Not detected, [facility] Parainfluenza Virus 2 Not detected Not detected, [facility] Parainfluenza virus 3 Not detected Not detected, [facility] Parainfluenza Virus 4 Not detected Not detected, [facility] Adenovirus Not detected Not detected, [facility] Coronavirus 229E Not detected Not detected, [facility] Coronavirus HKU1 Not detected Not detected, [facility] Coronavirus NL63 Not detected Not detected, [facility] Coronavirus OC43 Not detected Not detected, [facility] Bordetella Pertussis Not detected Not detected, [facility] Chlamydophila Pneumoniae Not detected Not detected, [facility] Mycoplasma Pneumoniae Not detected Not detected, [facility] Specimen Nasopharyngeal Narrative Performed At Other viruses and bacteria not targeted by [facility] this PCR panel cannot be excluded; therefore clinical correlation and follow up of serology, culture results, and other molecular studies is required. The results are not intended to be used as the sole means for clinical diagnosis or patient management decisions. This sample was tested at the [facility] Molecular Diagnostics Laboratory using the Machine TalkerArray Respiratory Panel. It is FDA cleared and has been verified and approved by the [facility] Molecular Diagnostics Laboratory for clinical use on nasopharyngeal swab specimens. The performance of the FilmArray RP has not been established in individuals who received influenza vaccine.Recent administration of a nasal influenza vaccine may cause false positive results for Influenza A and/or Influenza B. Performing Organization Address City/State/[facility] Phone Number [facility] [address] [place] [address] CENTER XR chest 1 view portable / [...] MD Report Verified Date/Time:08/14/2018 09:50:21 Reading Location: [facility] Radiology Reading Room Procedure Note Interface, External [...] Report Verified Date/Time: 08/14/2018 09:50:21 Reading Location: [facility] Radiology Reading Room Performing Organization Address City/State/Zipcode Phone Number GE RIS Manual Differential (08/14/2018 5:57 AM CDT)Only the most recent of2 resultswithin the time period is included. % Neutros 86 % [facility] % Lymphs 4 % [facility] % Monos 5 % [facility] % Eos 2 % [facility] % Metamyelo 2 (H) 0 - 0 % [facility] % Myelo 1 (H) 0 - 0 % [facility] # Neutros 9.98 (H) 1.56 - 6.13 K/ul [facility] # Lymphs 0.46 (L) 1.18 - 3.74 K/ul [facility] # Monos 0.58 (H) 0.24 - 0.36 K/uL [facility] # Eos 0.23 0.04 - 0.36 K/uL [facility] # Metamyelo 0.23 (H) 0.00 - 0.00 K/uL [facility] # Myelo 0.12 (H) 0.00 - 0.00 K/uL [facility] Total Counted 100 [facility] nRBC (manual) 1 (H) 0 - 0 /100 WBC [facility] WBC Morphology Normal [facility] Platelet Morphology Normal [facility] Polychromasia 1+ few [facility] Hypochromia 1+ few [facility] Artifact Present [facility] Platelet Conc Adequate [facility] Specimen Blood Narrative Performed At Received comment: [facility] User comments: Slide comments: Performing Organization Address City/[facility]/Zipcode Phone Number [facility] [address] [place] [address] CENTER Calcium, Ionized (08/14/2018 5:57 AM CDT)Only the most recent of8 resultswithin the time period is included. Calcium, Ion 1.04 (L) 1.12 - 1.27 mmol/L [facility] pH, Blood 7.38 [facility] Specimen Blood Performing Organization Address City/[facility]/Zipcode Phone Number [address] [id number] [phone] CENTER Phosphorus (08/14/2018 5:57 AM CDT)Only the most recent of7 resultswithin the time period is included. Phosphorus 2.3 2.3 - 4.7 mg/dL [facility] Specimen Blood Performing Organization Address City/State/Zipcode Phone Number [address] [address] CENTER Magnesium (08/14/2018 5:57 AM CDT)Only the most recent of16 resultswithin the time period is included. Magnesium 2.0 1.6 - 2.6 mg/dL [facility] Specimen Blood Performing Organization Address City/[facility] Services[facility] Phone Number [address] [address] [place] Comprehensive metabolic panel (08/14/2018 5:57 AM CDT)Only the most recent of8 resultswithin the time period is included. Protein, Total 5.5 (L) 6.0 - 8.3 gm/dL [facility] Albumin 3.1 (L) 3.5 - 5.0 g/dL [facility] Alkaline Phosphatase 67 40 - 150 U/L [facility] Total Bilirubin 0.6 0.2 - 1.2 mg/dL [facility] Sodium 135 (L) 136 - 145 meq/L [facility] Potassium 3.8 3.5 - 5.1 meq/L [facility] Chloride 99 98 - 107 meq/L [facility] CO2 27 22 - 29 meq/L [facility] BUN 45 (H) 7 - 21 mg/dL [facility] Creatinine 3.56 (H) 0.57 - 1.25 mg/dL [facility] Glucose 116 (H) 70 - 105 mg/dL [facility] Calcium 8.5 8.4 - 10.2 mg/dL [facility] AST 30 5 - 34 U/L [facility] ALT 18 6 - 55 U/L [facility] EGFR 12Comment: ESTIMATED GFR mL/min/1.73 sq m [facility] IS NOT ACCURATE [facility] CREATININE CLEARANCE IN PREDICTING GLOMERULAR FILTRATION RATE. ESTIMATED GFR IS NOT APPLICABLE FOR DIALYSIS PATIENTS. Specimen Blood Performing Organization Address City/[facility] Services[facility] Phone Number [address] [address] [place] Blood gas, arterial (08/10/2018 2:27 PM CDT)Only the most recent of4 resultswithin the time period is included. pH, Arterial 7.44 7.35 - 7.45 [facility] pCO2, Arterial 38 35 - 45 mmHg [facility] pO2, Arterial 165 (H) 80 - 90 mmHg [facility] O2 Sat, Arterial 99.2 (H) 96.0 - 97.0 % [facility] HCO3, Arterial 26 21 - 29 mmol/L [facility] Base Excess, Arterial 1.1 -2.0 - 3.0 mmol/L [facility] Patient Temperature 36.4 C [facility] FIO2 44.0 % [facility] Specimen Blood, Arterial Performing Organization Address City/[facility]/Zipcode Phone Number [facility] [address] [place] [phone] [place] Lactic Acid, Arterial (08/10/2018 2:26 PM CDT)Only the most recent of4 resultswithin the time period is included. Lactate, Art 0.9 0.5 - 2.2 mmol/L [facility] Specimen Blood, Arterial Performing Organization Address City/[facility]/Zipcode Phone Number [facility] [address] [place] [address] [phone] CENTER POC ACTIVATED CLOTTING TIME (08/07/2018 6:55 PM CDT)Only the most recent of6 resultswithin the time period is included. Activated Clotting Time 268Comment: TESTED AT sec [facility] [address] [facility] [id number] Specimen Blood Performing Organization Address City/[facility] Services[facility] Phone Number [facility] [address] [place] [address] [place] ECHOCARDIOGRAM REPORT - SCAN (08/06/2018 9:21 PM CDT) Narrative Performed At 2D Echo W/Doppler(CW/PW/Color) (08/06/2018 10:34 AM CDT) Ejection Fraction [facility] Specimen Narrative Performed At Transthoracic Echocardiography Report (TTE) [facility] Demographics Patient NameCARRILLOHENRIQUE Date of Study08/06/2018 ESCOBDEO Gender Female Visit [id number] Race [id number] Number Date of 1940 [facility] Age 78 year(s) SonographerPretty Long RDCS Bag Cutter Amber Kaplan RDCS Interpreting Garry Goodwin Physician Procedure Type of Study TTE procedure:LIMITED 2D [...] Study 08/06/2018 ESCOBDEO Gender Female Visit Number [id number] Race Room Number [id number] Number Date of 1940 Referring Peyton Choe Physician Age 78 year(s) Manager Poker Pretty Long, RDCS Bag Cutter Amber Kaplan, CS Interpreting Garry Goodwin Physician Procedure Type of Study TTE procedure:LIMITED 2D [...] LVOT Area: 2.81 cm^2 Performing Organization Address City/[facility] Services[facility] Phone Number [facility] MKCKESSON CPACS aPTT (08/06/2018 4:03 AM CDT)Only the most recent of7 resultswithin the time period is included. PTT 45.7 (H) 22.5 - 36.0 seconds [facility] Specimen Blood Narrative Performed At 4 hours after the start of continuous [facility] infusion and 4 hours after any rate change Performing Organization Address [facility] Phone Number [address] [address] [phone] CENTER Clostridium difficile GDH Toxin (08/04/2018 9:51 AM CDT) C. Difficle Toxin Negative Negative [facility] C. Difficile GDH Antigen Positive (A)Comment: C. Negative [facility] difficile present but toxin [facility] not detected. Indicates colonization with non-toxigenic strain or level of toxin below detectable levels. No need for enteric isolation. Treatment is rarely needed (only when strong clinical suspicion for Clostridium difficile infection) Specimen Stool Narrative Performed At Testing performed by Alere Rapid Cassette [facility] Assay.For GDH, published sensitivity of the assay is 98.7% compared to cytotoxicity testing.For Toxin AB, published sensitivity is 87.8% and specificity 99.4% compared to cytotoxicity testing. Verification of kit performance was done by the [facility] Microbiology Lab prior to clinical use. Performing Organization Address [facility]/State/Zipcode Phone Number [facility] [address] [place] [address] [place] Occult blood, stool (08/04/2018 9:51 AM CDT) Occult blood Positive (A) Negative [facility] Specimen Stool Performing Organization Address [facility]/Zipcode Phone Number [facility] [address] [place] [address] [place] Troponin I (08/04/2018 5:44 AM CDT)Only the most recent of4 resultswithin the time period is included. Troponin I 44.85 (HH) 0.00 - 0.03 ng/mL [facility] Specimen Blood Narrative Performed At Troponin I (TnI) levels must be interpreted [facility] in the context of the presenting symptoms [...] disease, and persistent tachyarrhythmia. Performing Organization Address [facility] Services[facility] Phone Number [place] [phone] [place] [address] [phone] [place] ECHOCARDIOGRAM REPORT - SCAN (08/03/2018 9:22 PM CDT) Narrative Performed At Limited 2D Echocardiogram (08/03/2018 11:17 AM CDT) Ejection Fraction [facility] Specimen Narrative Performed At Transthoracic Echocardiography Report (TTE) [facility] Demographics Patient NameCARRILLO, ENEDELIADate of Study08/03/2018 ESCOBDEO Female Visit [id number] Room [id number] Number Date of 1Referring Peyton Choe Physician Age 78 year(s)Manager Poker Cheryl Phan RCS Bag Cutter Nader Finley Interpreting Physician AurelianoMD Procedure Type [...] Study 08/03/2018 ESCOBDEO Gender Female Visit Number [id number] Race Room Number 6212 Number Date of 1940 Referring Peyton Choe Physician Age 78 year(s) Manager Poker Cheryl Phan [facility] Bag Cutter Nader Finley Interpreting Kash Carr, Physician Procedure Type of Study TTE procedure:LIMITED 2D [...] Mary Ellen.: 3.1 cm Performing Organization Address City/State/[facility] Services[facility]oga Phone Number [facility] Creatine Kinase (CK) (08/03/2018 9:24 AM CDT) Total CK 601 (H) 29 - 200 U/L [facility] Specimen Blood Performing Organization Address City/[facility]/Zipcode Phone Number [facility] [address] [place] [address] CENTER ECG 12 lead (08/03/2018 8:00 AM CDT)Only the most recent of4 resultswithin the time period is included. Specimen Narrative Performed At Ventricular Rate 96 BPM GE MUSE Atrial Rate 96 BPM P-R Interval 176 ms QRS Duration 110 ms Q-T Interval 390 ms QTC Calculation(Bazett) 492 ms P [place] 68 degrees R [place] 41 degrees T [place] 107 degrees Normal sinus rhythm Low voltage QRS Incomplete left bundle branch block Mild ST elevation with T wave inversion in aVL ST depression inferior and anterolateral leads consider subendocardial ischemia Prolonged QT Abnormal ECG When compared with ECG of 02-AUG-2018 06:46, No significant changes Confirmed by MD PATEL YOCHAI ([id number]) on 08/06/2018 6:32:30 AM Procedure Note Interface, External Ris In - 08/06/2018 6:32 AM CDT Ventricular Rate 96 BPM Atrial Rate 96 BPM P-R Interval 176 ms QRS Duration 110 ms Q-T Interval 390 ms QTC Calculation(Bazett) 492 ms P [place] 68 degrees R [place] 41 degrees T [place] 107 degrees Normal sinus rhythm Low voltage QRS Incomplete left bundle branch block Mild ST elevation with T wave inversion in aVL ST depression inferior and anterolateral leads consider subendocardial ischemia Prolonged QT Abnormal ECG When compared with ECG of 02-AUG-2018 06:46, No significant changes Confirmed by MD PATEL YOCHAI ([id number]) on 08/06/2018 6:32:30 AM Performing Organization Address City/State/Zipcode Phone Number GE MUSE Reticulocyte count (08/03/2018 1:52 AM CDT) % Retic 2.7 (H) 0.5 - 1.7 % [facility] Specimen Blood Performing Organization Address City/[facility]/Zipcode Phone Number [facility] [phone] CENTER Vitamin B12 and Folate (08/03/2018 1:51 AM CDT) Vitamin B12 212 (L) 213 - 816 pg/mL [facility] Folate 15.1 >=7.0 ng/mL [facility] Specimen Blood Performing Organization Address City/[facility]/Zipcode Phone Number [address] [phone] CENTER Iron, TIBC, % sat. (without ferritin) (08/03/2018 1:51 AM CDT) Iron 27.0 (L) 40.0 - 160.0 ug/dL [facility] TIBC 221 (L) 250 - 450 ug/dL [facility] Iron % Saturation 12 (L) 20 - 55 % [facility] Specimen Blood Performing Organization Address City/[facility]/Zipcode Phone Number [address] [phone] CENTER Ferritin (08/03/2018 1:51 AM CDT) Ferritin 207 5 - 275 ng/mL [facility] Specimen Blood Performing Organization Address City/[facility] Phone Number [address] [phone] CENTER US renal complete (08/02/2018 5:48 AM CDT) Specimen Narrative Performed At FINAL REPORT [employer] [facility] TECHNIQUE: Grayscale ultrasound of the kidneys and [...] MD Report Verified Date/Time:08/02/2018 08:45:50 Reading Location: [address] Radiology Reading Room Procedure Note Interface, [...] Report Verified Date/Time: 08/02/2018 08:45:50 Reading Location: [address] Radiology Reading Room Performing Organization Address City/[facility] Servicescode Phone Number [facility] Potassium-Stat Lab (08/02/2018 3:52 AM CDT)Only the most recent of3 resultswithin the time period is included. Potassium 4.6 3.6 - 5.5 meq/L [facility] Specimen Blood, Arterial Performing Organization Address [facility] Phone Number [address] [address] [phone] CENTER Sodium Na-Stat Lab (08/02/2018 3:52 AM CDT)Only the most recent of3 resultswithin the time period is included. Sodium 136 135 - 148 meq/L [facility] Specimen Blood, Arterial Performing Organization Address [facility] Phone Number [address] [address] CENTER Glucose-Stat Lab (08/02/2018 3:52 AM CDT)Only the most recent of3 resultswithin the time period is included. Glucose 272 (H) 70 - 110 mg/dL [facility] Specimen Blood, Arterial Performing Organization Address [facility] Phone Number [address] [address] [phone] CENTER HGB/HCT (H&H)-Stat Lab (08/02/2018 3:52 AM CDT)Only the most recent of3 resultswithin the time period is included. Hemoglobin 10.9 (L) 12.0 - 15.0 g/dL [facility] Hematocrit 32.0 (L) 36.0 - 45.0 % [facility] Specimen Blood, Arterial Performing Organization Address [facility] Phone Number [address] [address] [phone] CENTER Uric acid (08/02/2018 3:52 AM CDT) Uric Acid 9.1 (H)Comment: Specimen 2.6 - 7.2 mg/dL [facility] slightly hemolyzed [facility] Specimen Blood Performing Organization Address City/[facility] Servicescode Phone Number [address] [address] [phone] CENTER B-type Natriuretic Factor (BNP) (08/02/2018 3:52 AM CDT)Only the most recent of2 resultswithin the time period is included. BNP 1,452 (H) 0 - 100 pg/mL [facility] Specimen Blood Performing Organization Address [facility] Phone Number [address] [address] CENTER PERIPHERAL VASCULAR REPORT - SCAN (08/01/2018 9:23 PM CDT) Narrative Performed At ECHOCARDIOGRAM REPORT - SCAN (08/01/2018 9:21 PM CDT) Narrative Performed At PT/aPTT (08/01/2018 7:07 PM CDT) Protime 33.9 (H) 11.9 - 14.2 seconds [facility] INR 3.6 <=5.9 [facility] PTT 85.5 (H) 22.5 - 36.0 seconds [facility] Specimen Blood Narrative Performed At Effective 07/18/2018: PT Reference Range [facility] Change New: 11.9-14.2Previous: 11.7-14.7 RECOMMENDED COUMADIN/WARFARIN INR THERAPY RANGES STANDARD DOSE: 2.0-3.0Includes: PROPHYLAXIS for venous thrombosis, systemic embolization; TREATMENT for venous thrombosis and/or pulmonary embolus. HIGH RISK: Target INR is 2.5-3.5 for patients wiht mechanical heart valves. Performing Organization Address City/[facility]/Zipcode Phone Number [address] [address] [place] Oxygen saturation, measured (08/01/2018 7:07 PM CDT) O2 Saturation (Measured) 41.9 % [facility] Specimen Blood Performing Organization Address City/[facility]/Zipcode Phone Number [address] [address] CENTER Fibrinogen (08/01/2018 7:07 PM CDT) Fibrinogen 336 225 - 434 mg/dl [facility] Specimen Blood Performing Organization Address City/[facility] Services[facility] Phone Number [address] [address] [place] CBC (Hemogram only) (08/01/2018 7:07 PM CDT) WBC 14.1 (H) 3.5 - 10.5 K/L [facility] RBC 3.68 (L) 3.93 - 5.22 M/L [facility] Hemoglobin 11.3 11.2 - 15.7 GM/DL [facility] Hematocrit 34.6 34.1 - 44.9 % [facility] MCV 94.0 79.4 - 94.8 fL [facility] MCH 30.7 25.6 - 32.2 pg [facility] MCHC 32.7 32.2 - 35.5 GM/DL [facility] RDW 13.1 11.7 - 14.4 % [facility] Platelets 207 150 - 450 K/CU MM [facility] MPV 9.9 9.4 - 12.3 fL [facility] nRBC 0 0 - 0 /100 WBC [facility] Specimen Blood Performing Organization Address City/[facility]/Zipcode Phone Number [address] [address] [phone] CENTER Electrolytes (08/01/2018 7:07 PM CDT) Sodium 137 136 - 145 meq/L [facility] Potassium 4.8Comment: Specimen slightly 3.5 - 5.1 meq/L [facility] hemolyzed [facility] Chloride 109 (H) 98 - 107 meq/L [facility] CO2 20 (L) 22 - 29 meq/L [facility] Specimen Blood Narrative Performed At Call k > 5, [phone] [facility] Performing Organization Address City/State/Zipcode Phone Number [facility] [address] [place] [address] [place] Hemoglobin and hematocrit (08/01/2018 4:16 PM CDT) Hemoglobin 10.1 (L) 11.2 - 15.7 GM/DL [facility] Hematocrit 31.6 (L) 34.1 - 44.9 % [facility] Specimen Blood Performing Organization Address City/[facility] Servicescode Phone Number [facility] [address] [place] [address] [place] Platelet Aggregation: Function Screen (08/01/2018 8:04 AM CDT) Weak ADP 34 (L) 60 - 91 % [facility] Plt. Function Screen 0-39% indicates marked [facility] Interpretation platelet dysfunction [facility] Pathologist: Talia Villarreal MD [facility] (electronic signature) [facility] Platelets 186 150 - 450 K/CU [facility] Specimen Blood Narrative Performed At Platelet Function Screen results may be [facility] falsely low with platelet counts <100,000/cu mm. Performing Organization Address City/[facility]/Zipcode Phone Number [facility] [address] [place] [address] [place] Hepatic function panel (08/01/2018 5:25 AM CDT)Only the most recent of2 resultswithin the time period is included. Protein, Total 6.2Comment: Specimen 6.0 - 8.3 gm/dL [facility] hemolyzed [facility] Albumin 3.4 (L)Comment: Specimen 3.5 - 5.0 g/dL [facility] hemolyzed [facility] Total Bilirubin 0.4Comment: Specimen 0.2 - 1.2 mg/dL [facility] Bilirubin, Direct 0.1Comment: Specimen 0.1 - 0.5 mg/dL [facility] hemolyzed [facility] Alkaline Phosphatase 59 40 - 150 U/L [facility] AST 19Comment: Specimen 5 - 34 U/L [facility] hemolyzed [facility] ALT 10Comment: Specimen 6 - 55 U/L [facility] hemolyzed [facility] Specimen Blood Performing Organization Address City/[facility] Phone Number [address] [address] [phone] CENTER Thrombin time (08/01/2018 4:18 AM CDT) Thrombin Time 64.9 (H) 13.8 - 20.0 secs [facility] Specimen Blood Narrative Performed At Draw baseline aPTT prior to infusion [facility] Performing Organization Address [facility] Phone Number [address] [address] CENTER Prothrombin time/INR (08/01/2018 4:18 AM CDT)Only the most recent of2 resultswithin the time period is included. Protime 15.0 (H) 11.9 - 14.2 seconds [facility] INR 1.2 <=5.9 [facility] Specimen Blood Narrative Performed At Effective 07/18/2018: PT Reference Range [facility] Change New: 11.9-14.2Previous: 11.7-14.7 RECOMMENDED COUMADIN/WARFARIN INR THERAPY RANGES STANDARD DOSE: 2.0-3.0Includes: PROPHYLAXIS for venous thrombosis, systemic embolization; TREATMENT for venous thrombosis and/or pulmonary embolus. HIGH RISK: Target INR is 2.5-3.5 for patients wiht mechanical heart valves. Draw baseline aPTT prior to infusion Performing Organization Address City/State/Zipcode Phone Number [facility] [address] [place] [address] CENTER 2D Echo W/Doppler(CW/PW/Color) (08/01/2018 2:05 AM CDT) Ejection Fraction [facility] Specimen Narrative Performed At Transthoracic Echocardiography Report (TTE) [facility] Demographics Patient NameCARRIHENRIQUE MOSES Date of Study 08/01/2018 ESCOBDEO GenderFemale Visit [id number] RaceUnknown Number [id number] Number Date of 1940 [facility] Phys[facility] Age 78 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(s) Manager Poker Nat Kuhn [facility], RVT InterpretingStep david Pettit, Physician FellowRey Ferraro MD Procedure Type of Study TTE [...] HENRIQUE ARECHIGA Date of Study 08/01/2018 ESCOBDEO Gender Female Visit Number [id number] Race Unknown Room Number 6102 Number Date of 1940 Referring Peyton Choe Physician Age 78 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 There is <50% diameter reduction (approximately [...] Performed At LAB - Carotid Duplex Study [facility] Demographics Patient Name HENRIQUE ARECHIGA Date of Study08/01/2018 ESCOBDEO [id number] Visit Number [id number] Gender Female Accession Number [id number] Date of Birth1940 [facility] [id number] Physician SonographPerri Garces Interpreting Physician MaximusMD Procedure Type of Study: Cerebral: Carotid, CAROTID [...] Name HENRIQUE ARECHIGA Date of Study 08/01/2018 RANDEE Age 78 Visit Number [id number] Gender Female Accession Number [id number] Date of 1940 Referring Peyton Choe Room Number 6102 Physician Manager Poker Rex Garces Interpreting Brandi Camara, Physician Procedure Type of Study: Cerebral: Carotid, CAROTID [...] Additional Measurements:ICAPSV/CCAPSV 1.61.ICAEDV/CCAEDV 1.15. Performing Organization Address City/[facility]/Zipcode Phone Number [facility] TSH/T4 if indicated (07/31/2018 8:12 PM CDT) TSH 0.99 0.35 - 4.94 uIU/mL [facility] Specimen Blood Performing Organization Address City/[facility] Services[facility] Phone Number [place] [address] [phone] [place], [place] [phone] CENTER after 09/09/2017 Insurance Payer Benefit Plan / Group Subscriber ID Type Phone Address [employer] [facility] xxxxxxxx Maps Contracted MEDICAID [place] xxxxxxxxx Medicaid Advance Directives Patient has advance care planning documents, and code status on file. For more information, please contact:[address] [phone] Code Status Date Activated Date Inactivated Comments Full Code 08/01/2018 12:28 AM 08/20/2018 5:24 PM This code status was determined by: Patient Full Code 07/31/2018 7:56 PM 08/01/2018 12:28 AM This code status was determined by: Patient
--- OUTSIDE RECORDS SUMMARY | 2018-09-10 09:01 | XMS REPORT ---
:1940 [facility] [address] [place] [address] [address] [place] [address] Care Team Providers Name Role Phone RUMA STUARTMAMIAlbert Olman Unavailable Unavailable Payers Payer Name Policy Type [...] (test 111 mg/dL 70-[address] [facility] [address] [facility] jspf=[id number]) [facility] [address] CBC W/PLT COUNT & AUTO [id number] 10:11:00 Test Item Value Reference Range Comments WHITE BLOOD CELL COUNT 4.7 K/ L 3.5-10.5 (BEAKER) (test qoqw=160) RED BLOOD CELL COUNT (BEAKER) 3.14 M/ L 3.93-5.22 (test nsou=790) HEMOGLOBIN (BEAKER) (test 10.1 GM/DL 11.2-15.7 sybl=006) HEMATOCRIT (BEAKER) (test 34.0 % 34.1-44.9 lhmq=395) MEAN CORPUSCULAR VOLUME 108.3 fL 79.4-94.8 Discordant results compared (BEAKER) (test aixt=208) to previous result; clinical correlation required. MEAN CORPUSCULAR HEMOGLOBIN 32.2 pg 25.6-32.2 (BEAKER) (test bexe=445) MEAN CORPUSCULAR HEMOGLOBIN 29.7 GM/DL 32.2-35.5 CONC (BEAKER) (test pxho=198) RED CELL DISTRIBUTION WIDTH 18.5 % 11.7-14.4 (BEAKER) (test picp=064) PLATELET COUNT (BEAKER) (test 186 K/CU MM 150-450 fwez=729) MEAN PLATELET VOLUME (BEAKER) 9.5 fL 9.4-12.3 (test hcyt=070) NUCLEATED RED BLOOD CELLS 0 /100 WBC 0-0 (BEAKER) (test odvw=250) NEUTROPHILS RELATIVE PERCENT 67 % (BEAKER) (test lmoo=735) LYMPHOCYTES RELATIVE PERCENT 14 % (BEAKER) (test gfwk=948) MONOCYTES RELATIVE PERCENT 14 % (BEAKER) (test olov=935) EOSINOPHILS RELATIVE PERCENT 3 % (BEAKER) (test eteu=553) BASOPHILS RELATIVE PERCENT 1 % (BEAKER) (test hmsz=210) NEUTROPHILS ABSOLUTE COUNT 3.16 K/ L 1.56-6.13 (BEAKER) (test rkta=863) LYMPHOCYTES ABSOLUTE COUNT 0.67 K/ L 1.18-3.74 (BEAKER) (test zfeq=421) MONOCYTES ABSOLUTE COUNT 0.65 K/ L 0.24-0.36 (BEAKER) (test xypq=797) EOSINOPHILS ABSOLUTE COUNT 0.15 K/ L 0.04-0.36 (BEAKER) (test sryb=802) BASOPHILS ABSOLUTE COUNT 0.03 K/ L 0.01-0.08 (BEAKER) (test rhwx=952) IMMATURE 1 % 0-1 GRANULOCYTES-RELATIVE PERCENT (BEAKER) (test thpr=7880) POCT-GLUCOSE [id number] 07:46:00 Test Item Value Reference Range Comments POC-GLUCOSE METER (BEAKER) 79 mg/dL 70-[address] [facility] [address] [facility] (test gmhh=1595) [facility] [address] BASIC METABOLIC [id number] 06:22:00 Test Item Value Reference Range Comments SODIUM (BEAKER) (test 136 meq/L 136-145 uzun=945) POTASSIUM (BEAKER) (test 4.0 meq/L 3.5-5.1 wcac=962) CHLORIDE (BEAKER) (test 100 meq/L 98-107 hwgn=854) CO2 (BEAKER) (test 26 meq/L 22-29 jgcf=418) BLOOD UREA NITROGEN 55 mg/dL 7-21 (BEAKER) (test vvxo=649) CREATININE (BEAKER) (test 2.87 mg/dL 0.57-1.25 pxbn=777) GLUCOSE RANDOM (BEAKER) 79 mg/dL 70-105 (test pwpk=389) CALCIUM (BEAKER) (test 8.6 mg/dL 8.4-10.2 npul=963) EGFR (BEAKER) (test 16 mL/min/1.73 sq m ESTIMATED GFR IS NOT irap=4113) ACCURATE CREATININE CLEARANCE IN PREDICTING GLOMERULAR FILTRATION RATE. ESTIMATED GFR IS NOT APPLICABLE FOR DIALYSIS PATIENTS. POCT-GLUCOSE [id number] 20:51:00 Test Item Value Reference Range Comments POC-GLUCOSE METER (BEAKER) 176 mg/dL 70-110 TESTED AT [address] (test vioh=5605) [place] [address] POCT-GLUCOSE [id number] 18:25:00 Test Item Value Reference Range Comments POC-GLUCOSE METER (BEAKER) 84 mg/dL 70-110 TESTED AT [address] (test reqz=2464) [place] [address] POCT-GLUCOSE [id number] 12:54:00 Test Item Value Reference Range Comments POC-GLUCOSE METER (BEAKER) 111 mg/dL 70-110 TESTED AT [address] (test iaaw=7563) [place] [address] POCT-GLUCOSE [id number] 08:25:00 Test Item Value Reference Range Comments POC-GLUCOSE METER (BEAKER) 105 mg/dL 70-110 TESTED AT [address] (test ggyj=2512) [place] [address] BASIC METABOLIC [id number] 06:26:00 Test Item Value Reference Range Comments SODIUM (BEAKER) (test 137 meq/L 136-145 dfim=877) POTASSIUM (BEAKER) (test 3.9 meq/L 3.5-5.1 bkjx=690) CHLORIDE (BEAKER) (test 100 meq/L 98-107 jtgh=603) CO2 (BEAKER) (test 28 meq/L 22-29 ctks=061) BLOOD UREA NITROGEN 53 mg/dL 7-21 (BEAKER) (test gozz=730) CREATININE (BEAKER) (test 3.07 mg/dL 0.57-1.25 wflx=652) GLUCOSE RANDOM (BEAKER) 71 mg/dL 70-105 (test wujp=757) CALCIUM (BEAKER) (test 8.6 mg/dL 8.4-10.2 eivz=249) EGFR (BEAKER) (test 15 mL/min/1.73 sq m ESTIMATED GFR IS NOT iore=9788) ACCURATE CREATININE CLEARANCE IN PREDICTING GLOMERULAR FILTRATION RATE. ESTIMATED GFR IS NOT APPLICABLE FOR DIALYSIS PATIENTS. POCT-GLUCOSE [id number] 04:25:00 Test Item Value Reference Range Comments POC-GLUCOSE METER (BEAKER) 81 mg/dL 70-110 TESTED AT [address] (test vgez=7621) [place] [address] POCT-GLUCOSE [id number] 21:58:00 Test Item Value Reference Range Comments POC-GLUCOSE METER (BEAKER) 164 mg/dL 70-110 TESTED AT [address] (test lebb=0977) [place] [address] POCT-GLUCOSE [id number] 18:38:00 Test Item Value Reference Range Comments POC-GLUCOSE METER (BEAKER) 98 mg/dL 70-110 TESTED AT [address] (test kcxc=2983) [place] [address] POCT-GLUCOSE [id number] 13:14:00 Test Item Value Reference Range Comments POC-GLUCOSE METER (BEAKER) 105 mg/dL 70-110 TESTED AT [address] (test ydth=8112) [place] [address] POCT-GLUCOSE [id number] 08:12:00 Test Item Value Reference Range Comments POC-GLUCOSE METER (BEAKER) 115 mg/dL 70-110 TESTED AT [address] (test dwsx=2292) [place] [address] BASIC METABOLIC [id number] 07:37:00 Test Item Value Reference Range Comments SODIUM (BEAKER) (test 136 meq/L 136-145 htra=413) POTASSIUM (BEAKER) (test 3.7 meq/L 3.5-5.1 crny=520) CHLORIDE (BEAKER) (test 98 meq/L 98-107 lwja=783) CO2 (BEAKER) (test 28 meq/L 22-29 rwyd=593) BLOOD UREA NITROGEN 54 mg/dL 7-21 (BEAKER) (test tiud=699) CREATININE (BEAKER) (test 3.37 mg/dL 0.57-1.25 qfis=605) GLUCOSE RANDOM (BEAKER) 85 mg/dL 70-105 (test dffx=005) CALCIUM (BEAKER) (test 8.5 mg/dL 8.4-10.2 cloe=089) EGFR (BEAKER) (test 13 mL/min/1.73 sq m ESTIMATED GFR IS NOT qkhb=8998) ACCURATE CREATININE CLEARANCE IN PREDICTING GLOMERULAR FILTRATION RATE. ESTIMATED GFR IS NOT APPLICABLE FOR DIALYSIS PATIENTS. POCT-GLUCOSE [id number] 07:22:00 Test Item Value Reference Range Comments POC-GLUCOSE METER (BEAKER) 128 mg/dL 70-110 TESTED AT [address] (test pcer=4761) [place] [address] POCT-GLUCOSE [id number] 04:05:00 Test Item Value Reference Range Comments POC-GLUCOSE METER (BEAKER) 95 mg/dL 70-110 TESTED AT [address] (test ynyx=2718) [place] [address] POCT-GLUCOSE [id number] 04:05:00 Test Item Value Reference Range Comments POC-GLUCOSE METER (BEAKER) 68 mg/dL 70-110 TESTED AT [address] (test xtsz=8953) [place] [address] POCT-GLUCOSE [id number] 04:05:00 Test Item Value Reference Range Comments POC-GLUCOSE METER (BEAKER) 52 mg/dL 70-110 TESTED AT [address] (test zjji=0825) [facility] [address] POCT-GLUCOSE [id number] 22:26:00 Test Item Value Reference Range Comments POC-GLUCOSE METER (BEAKER) 132 mg/dL 70-110 TESTED AT [address] (test cuzb=5254) [place] [address] POCT-GLUCOSE [id number] 19:58:00 Test Item Value Reference Range Comments POC-GLUCOSE METER (BEAKER) 134 mg/dL 70-110 TESTED AT [address] (test vrol=2187) [facility] [address] POCT-GLUCOSE [id number] 13:11:00 Test Item Value Reference Range Comments POC-GLUCOSE METER (BEAKER) 148 mg/dL 70-110 TESTED AT [place] [id number] [facility] (test ocmm=1907) [place] [address] POCT-GLUCOSE [id number] 12:30:00 Test Item Value Reference Range Comments POC-GLUCOSE METER (BEAKER) 183 mg/dL 70-110 TESTED AT [place] [address] [facility] (test kczd=7406) [facility] [address] CBC W/PLT COUNT & AUTO [id number] 10:37:00 Test Item Value Reference Range Comments WHITE BLOOD CELL COUNT (BEAKER) (test nbwc=791) 7.4 K/ L 3.5-10.5 RED BLOOD CELL COUNT (BEAKER) (test vctr=200) 3.03 M/ L 3.93-5.22 HEMOGLOBIN (BEAKER) (test axxl=213) 9.5 GM/DL 11.2-15.7 HEMATOCRIT (BEAKER) (test zgsu=532) 31.4 % 34.1-44.9 MEAN CORPUSCULAR VOLUME (BEAKER) (test txyc=622) 103.6 fL 79.4-94.8 MEAN CORPUSCULAR HEMOGLOBIN (BEAKER) (test 31.4 pg 25.6-32.2 zerl=419) MEAN CORPUSCULAR HEMOGLOBIN CONC (BEAKER) (test 30.3 GM/DL 32.2-35.5 yobe=637) RED CELL DISTRIBUTION WIDTH (BEAKER) (test 18.8 % 11.7-14.4 bedr=373) PLATELET COUNT (BEAKER) (test grqn=754) 205 K/CU MM 150-450 MEAN PLATELET VOLUME (BEAKER) (test cyhx=525) 9.8 fL 9.4-12.3 NUCLEATED RED BLOOD CELLS (BEAKER) (test 0 /100 WBC 0-0 tczt=543) NEUTROPHILS RELATIVE PERCENT (BEAKER) (test 70 % kecc=608) LYMPHOCYTES RELATIVE PERCENT (BEAKER) (test 11 % qlhn=122) MONOCYTES RELATIVE PERCENT (BEAKER) (test 15 % cqud=772) EOSINOPHILS RELATIVE PERCENT (BEAKER) (test 2 % wldg=843) BASOPHILS RELATIVE PERCENT (BEAKER) (test 0 % xvlz=849) NEUTROPHILS ABSOLUTE COUNT (BEAKER) (test 5.19 K/ L 1.56-6.13 pyby=060) LYMPHOCYTES ABSOLUTE COUNT (BEAKER) (test 0.82 K/ L 1.18-3.74 ecep=508) MONOCYTES ABSOLUTE COUNT (BEAKER) (test 1.13 K/ L 0.24-0.36 byob=752) EOSINOPHILS ABSOLUTE COUNT (BEAKER) (test 0.14 K/ L 0.04-0.36 tqwb=441) BASOPHILS ABSOLUTE COUNT (BEAKER) (test 0.03 K/ L 0.01-0.08 petc=511) IMMATURE GRANULOCYTES-RELATIVE PERCENT (BEAKER) 1 % 0-1 (test vqfh=8641) POCT-GLUCOSE [id number] 08:09:00 Test Item Value Reference Range Comments POC-GLUCOSE METER (BEAKER) 99 mg/dL 70-110 TESTED AT [address] (test pypq=1117) [place] [address] BASIC METABOLIC [id number] 05:41:00 Test Item Value Reference Range Comments SODIUM (BEAKER) (test 136 meq/L 136-145 slpp=988) POTASSIUM (BEAKER) (test 4.1 meq/L 3.5-5.1 giei=279) CHLORIDE (BEAKER) (test 99 meq/L 98-107 qeir=516) CO2 (BEAKER) (test 29 meq/L 22-29 ztay=408) BLOOD UREA NITROGEN 46 mg/dL 7-21 (BEAKER) (test cixo=372) CREATININE (BEAKER) (test 3.01 mg/dL 0.57-1.25 wyfe=924) GLUCOSE RANDOM (BEAKER) 107 mg/dL 70-105 (test zxpu=576) CALCIUM (BEAKER) (test 8.5 mg/dL 8.4-10.2 rlqs=156) EGFR (BEAKER) (test 15 mL/min/1.73 sq m ESTIMATED GFR IS NOT yuum=6719) ACCURATE CREATININE CLEARANCE IN PREDICTING GLOMERULAR FILTRATION RATE. ESTIMATED GFR IS NOT APPLICABLE FOR DIALYSIS PATIENTS. POCT-GLUCOSE [id number] 21:42:00 Test Item Value Reference Range Comments POC-GLUCOSE METER (BEAKER) 171 mg/dL 70-110 TESTED AT [address] (test gdsk=4682) [place] [address] POCT-GLUCOSE [id number] 18:03:00 Test Item Value Reference Range Comments POC-GLUCOSE METER (BEAKER) 123 mg/dL 70-110 TESTED AT [place] [id number] [facility] (test quht=5442) [place] [address] POCT-GLUCOSE [id number] 12:52:00 Test Item Value Reference Range Comments POC-GLUCOSE METER (BEAKER) 167 mg/dL 70-110 TESTED AT [address] (test qkxf=9367) [place] [address] POCT-GLUCOSE [id number] 09:05:00 Test Item Value Reference Range Comments POC-GLUCOSE METER (BEAKER) 128 mg/dL 70-110 TESTED AT [address] (test lcww=0039) [place] [address] CT, PELVIS, WO [id number] 08:42:00FINAL REPORT CT pelvis without contrast HISTORY: [...] MDReport Verified Date/Time: 08/16/2018 08:42:53 Reading Location: [facility] Radiology Reading Room BASIC METABOLIC [id number] 05:58:00 Test Item Value Reference Range Comments SODIUM (BEAKER) (test 137 meq/L 136-145 zrcw=507) POTASSIUM (BEAKER) (test 4.2 meq/L 3.5-5.1 bjyw=461) CHLORIDE (BEAKER) (test 100 meq/L 98-107 akfv=663) CO2 (BEAKER) (test 28 meq/L 22-29 easi=666) BLOOD UREA NITROGEN 48 mg/dL 7-21 (BEAKER) (test tiyh=196) CREATININE (BEAKER) (test 2.88 mg/dL 0.57-1.25 pnet=597) GLUCOSE RANDOM (BEAKER) 115 mg/dL 70-105 (test gpcn=296) CALCIUM (BEAKER) (test 8.7 mg/dL 8.4-10.2 cvyy=885) EGFR (BEAKER) (test 16 mL/min/1.73 sq m ESTIMATED GFR IS NOT qffz=8382) ACCURATE CREATININE CLEARANCE IN PREDICTING GLOMERULAR FILTRATION RATE. ESTIMATED GFR IS NOT APPLICABLE FOR DIALYSIS PATIENTS. POCT-GLUCOSE [id number] 03:05:00 Test Item Value Reference Range Comments POC-GLUCOSE METER (BEAKER) 157 mg/dL 70-110 TESTED AT [address] (test pyfp=2267) [facility] [address] POCT-GLUCOSE [id number] 20:57:00 Test Item Value Reference Range Comments POC-GLUCOSE METER (BEAKER) 106 mg/dL 70-110 TESTED AT [address] (test lnef=9059) [facility] [address] POCT-GLUCOSE [id number] 18:13:00 Test Item Value Reference Range Comments POC-GLUCOSE METER (BEAKER) 237 mg/dL 70-110 TESTED AT [address] (test kplf=4365) [facility] [address] POCT-GLUCOSE [id number] 13:47:00 Test Item Value Reference Range Comments POC-GLUCOSE METER (BEAKER) 172 mg/dL 70-110 TESTED AT [address] (test pdyk=6791) [facility] [address] POCT-GLUCOSE [id number] 08:50:00 Test Item Value Reference Range Comments POC-GLUCOSE METER (BEAKER) 155 mg/dL 70-110 TESTED AT [address] (test kpvh=6034) [place] [address] BASIC METABOLIC [id number] 06:36:00 Test Item Value Reference Range Comments SODIUM (BEAKER) (test 134 meq/L 136-145 tsec=492) POTASSIUM (BEAKER) (test 3.6 meq/L 3.5-5.1 kxtz=187) CHLORIDE (BEAKER) (test 100 meq/L 98-107 arqz=115) CO2 (BEAKER) (test 26 meq/L 22-29 jdfv=301) BLOOD UREA NITROGEN 47 mg/dL 7-21 (BEAKER) (test jzxm=460) CREATININE (BEAKER) (test 3.21 mg/dL 0.57-1.25 rppu=674) GLUCOSE RANDOM (BEAKER) 139 mg/dL 70-105 (test aekr=160) CALCIUM (BEAKER) (test 8.3 mg/dL 8.4-10.2 xmef=443) EGFR (BEAKER) (test 14 mL/min/1.73 sq m ESTIMATED GFR IS NOT mola=5754) ACCURATE CREATININE CLEARANCE IN PREDICTING GLOMERULAR FILTRATION RATE. ESTIMATED GFR IS NOT APPLICABLE FOR DIALYSIS PATIENTS. POCT-GLUCOSE [id number] 22:53:00 Test Item Value Reference Range Comments POC-GLUCOSE METER (BEAKER) 231 mg/dL 70-110 TESTED AT [address] (test vqvr=8036) [place] [address] POCT-GLUCOSE [id number] 17:51:00 Test Item Value Reference Range Comments POC-GLUCOSE METER (BEAKER) 169 mg/dL 70-110 TESTED AT [address] (test tdts=9635) [place] [address] RESPIRATORY PANEL [id number] 15:45:00 Test Item Value Reference Range Comments HUMAN METAPNEUMOVIRUS (BEAKER) (test Not detected Not detected, Equivocal tcsz=1064) RHINOVIRUS (BEAKER) (test yegn=1492) Not detected Not detected, Equivocal INFLUENZA A (BEAKER) (test ellw=8384) Not detected Not detected, Equivocal INFLUENZA A (NO SUBTYPE) (test Not detected, Equivocal eaqy=6682) INFLUENZA A SUBTYPE H1 (BEAKER) (test Not detected, Equivocal glzp=3258) INFLUENZA A SUBTYPE H3 (BEAKER) (test Not detected, Equivocal wldy=3556) INFLUENZA A SUBTYPE H1-2009 (BEAKER) Not detected, Equivocal (test mlza=6053) INFLUENZA B (BEAKER) (test esqj=7739) Not detected Not detected, Equivocal RESPIRATORY SYNCYTIAL VIRUS (BEAKER) Not detected Not detected, Equivocal (test zfnt=2694) PARAINFLUENZA VIRUS 1 (BEAKER) (test Not detected Not detected, Equivocal hibn=6845) PARAINFLUENZA VIRUS 2 (BEAKER) (test Not detected Not detected, Equivocal feoe=2511) PARAINFLUENZA VIRUS 3 (BEAKER) (test Not detected Not detected, Equivocal thue=5222) PARAINFLUENZA VIRUS 4 (BEAKER) (test Not detected Not detected, Equivocal lwrr=7722) ADENOVIRUS (BEAKER) (test emhl=0257) Not detected Not detected, Equivocal CORONAVIRUS 229E (BEAKER) (test Not detected Not detected, Equivocal dhwa=8667) CORONAVIRUS HKU1 (BEAKER) (test Not detected Not detected, Equivocal bmwy=6905) CORONAVIRUS NL63 (BEAKER) (test Not detected Not detected, Equivocal faau=4645) CORONAVIRUS OC43 (BEAKER) (test Not detected Not detected, Equivocal yzel=0221) BORDETELLA PERTUSSIS (BEAKER) (test Not detected Not detected, Equivocal ivyt=7066) CHLAMYDOPHILA PNEUMONIAE (BEAKER) (test Not detected Not detected, Equivocal kytc=9177) MYCOPLASMA PNEUMONIAE (BEAKER) (test Not detected Not detected, Equivocal cwqo=0307) Other viruses and bacteria not targeted by this PCR panel cannot be excluded; therefore clinical correlation and follow up of serology, culture results, and other molecular studies is required. The results are not intended to be used as the sole means for clinical diagnosis or patient management decisions. This sample was tested at the [facility] using the [employer]icals[employer] Respiratory Panel. It is FDA cleared and has been verified and approved by the [facility] for clinical use on nasopharyngeal swab specimens.The performance of the FilmArrayRP has not been established in individuals who received influenza vaccine. Recent administration ofa nasal influenza vaccine may cause false positive results for Influenza A and/orInfluenza B.URINALYSIS W/ REFLEX URINE [id number] 12:32 :00 Test Item Value Reference Range Comments COLOR (BEAKER) (test hrre=438) Light Yellow CLARITY (BEAKER) (test ypaq=928) Hazy SPECIFIC GRAVITY UA (BEAKER) (test rxsd=104) 1.009 1.001-1.035 PH UA (BEAKER) (test alox=210) 6.0 5.0-8.0 PROTEIN UA (BEAKER) (test bshy=083) 30 mg/dL Negative GLUCOSE UA (BEAKER) (test zgiv=089) Negative Negative KETONES UA (BEAKER) (test ezos=586) Negative Negative BILIRUBIN UA (BEAKER) (test hpox=838) Negative Negative BLOOD UA (BEAKER) (test fuwp=574) Small Negative NITRITE UA (BEAKER) (test cjyz=011) Negative Negative LEUKOCYTE ESTERASE UA (BEAKER) (test wnwm=039) Large Negative UROBILINOGEN UA (BEAKER) (test tvjb=039) 0.2 mg/dL 0.2-1.0 RBC UA (BEAKER) (test xwvs=584) 0 /HPF WBC UA (BEAKER) (test sqnp=989) > /HPF BACTERIA (BEAKER) (test fglo=487) Many SQUAMOUS EPITHELIAL (BEAKER) (test xnln=991) < /HPF RENAL EPITHELIAL (BEAKER) (test yqvb=0523) 15 /HPF WBC CASTS (BEAKER) (test tnvn=9715) 14 /LPF SOURCE(BEAKER) (test xdgr=5034) POCT-GLUCOSE [id number] 12:29:00 Test Item Value Reference Range Comments POC-GLUCOSE METER (BEAKER) 222 mg/dL 70-110 TESTED AT [place] [id number] [facility] (test ndqs=5022) [facility] [address] CBC W/PLT COUNT & AUTO [id number] 10:12:00 Test Item Value Reference Range Comments WHITE BLOOD CELL COUNT (BEAKER) (test umek=468) 11.6 K/ L 3.5-10.5 RED BLOOD CELL COUNT (BEAKER) (test srge=492) 2.77 M/ L 3.93-5.22 HEMOGLOBIN (BEAKER) (test txvo=274) 8.7 GM/DL 11.2-15.7 HEMATOCRIT (BEAKER) (test uzop=331) 27.2 % 34.1-44.9 MEAN CORPUSCULAR VOLUME (BEAKER) (test bxxc=530) 98.2 fL 79.4-94.8 MEAN CORPUSCULAR HEMOGLOBIN (BEAKER) (test 31.4 pg 25.6-32.2 zzqo=851) MEAN CORPUSCULAR HEMOGLOBIN CONC (BEAKER) (test 32.0 GM/DL 32.2-35.5 ehav=963) RED CELL DISTRIBUTION WIDTH (BEAKER) (test 17.4 % 11.7-14.4 bodk=187) PLATELET COUNT (BEAKER) (test ylaw=175) 209 K/CU MM 150-450 MEAN PLATELET VOLUME (BEAKER) (test fxuv=819) 10.2 fL 9.4-12.3 NUCLEATED RED BLOOD CELLS (BEAKER) (test 1 /100 WBC 0-0 etpk=703) (CELLAVISION MANUAL DIFF)2018-08-14 10:12:00 Test Item Value Reference Range Comments NEUTROPHILS - REL (CELLAVISION)(BEAKER) (test 86 % vxby=1323) LYMPHOCYTES - REL (CELLAVISION)(BEAKER) (test 4 % cmdw=1525) MONOCYTES - REL (CELLAVISION)(BEAKER) (test 5 % qbel=1800) EOSINOPHILS - REL (CELLAVISION)(BEAKER) (test 2 % ehls=6409) METAMYELOCYTES - REL (CELLAVISION)(BEAKER) (test 2 % 0-0 idvf=9250) MYELOCYTES - REL (CELLAVISION)(BEAKER) (test 1 % 0-0 zwkz=5980) NEUTROPHILS - ABS (CELLAVISION)(BEAKER) (test 9.98 K/ul 1.56-6.13 lccn=2510) LYMPHOCYTES - ABS (CELLAVISION)(BEAKER) (test 0.46 K/ul 1.18-3.74 porh=9876) MONOCYTES - ABS (CELLAVISION)(BEAKER) (test 0.58 K/uL 0.24-0.36 hofn=6484) EOSINOPHILS - ABS (CELLAVISION)(BEAKER) (test 0.23 K/uL 0.04-0.36 raot=0727) METAMYELOCYTES - ABS (CELLAVISION)(BEAKER) (test 0.23 K/uL 0.00-0.00 oqnj=9147) MYELOCYTES-ABS (CELLAVISION)(BEAKER) (test 0.12 K/uL 0.00-0.00 chqw=8424) TOTAL COUNTED (BEAKER) (test yywc=7289) 100 MANUAL NRBC PER 100 CELLS (BEAKER) (test 1 /100 WBC 0-0 iysa=1681) WBC MORPHOLOGY (BEAKER) (test eczp=767) Normal PLT MORPHOLOGY (BEAKER) (test jdil=522) Normal POLYCHROMATOPHILLIC RBCS(BEAKER) (test wpol=225) 1+ few HYPOCHROMIA (BEAKER) (test ipxj=163) 1+ few ARTIFACT (CELLAVISION)(BEAKER) (test srod=1558) Present PLATELET CONCENTRATION (CELLAVISION)(BEAKER) Adequate (test liko=9350) Received comment: User comments: Slide comments:RAD, CHEST, 1 VIEW, NON [id number] 09:50:00Reason for exam:->coughShould this be performed at [...] Verified Date/Time: 08/14/2018 09:50:21 Reading Location : [facility] Radiology Reading Room POCT-GLUCOSE [id number] 08:20:00 Test Item Value Reference Range Comments POC-GLUCOSE METER (BEAKER) 126 mg/dL 70-[address] [facility] [address] [facility] (test occc=4029) [facility] [address] COMPREHENSIVE METABOLIC [id number] 07:13:00 Test Item Value Reference Range Comments TOTAL PROTEIN (BEAKER) 5.5 gm/dL 6.0-8.3 (test rwbo=647) ALBUMIN (BEAKER) (test 3.1 g/dL 3.5-5.0 nbuj=9998) ALKALINE PHOSPHATASE 67 U/L 40-150 (BEAKER) (test isbd=747) BILIRUBIN TOTAL (BEAKER) 0.6 mg/dL 0.2-1.2 (test zfqe=960) SODIUM (BEAKER) (test 135 meq/L 136-145 hnce=240) POTASSIUM (BEAKER) (test 3.8 meq/L 3.5-5.1 mcvv=443) CHLORIDE (BEAKER) (test 99 meq/L 98-107 bylr=268) CO2 (BEAKER) (test 27 meq/L 22-29 sicj=365) BLOOD UREA NITROGEN 45 mg/dL 7-21 (BEAKER) (test agji=407) CREATININE (BEAKER) (test 3.56 mg/dL 0.57-1.25 qujv=713) GLUCOSE RANDOM (BEAKER) 116 mg/dL 70-105 (test azax=065) CALCIUM (BEAKER) (test 8.5 mg/dL 8.4-10.2 qjsn=216) AST (SGOT) (BEAKER) (test 30 U/L 5-34 elrg=464) ALT (SGPT) (BEAKER) (test 18 U/L 6-55 rfui=757) EGFR (BEAKER) (test 12 mL/min/1.73 sq m ESTIMATED GFR IS NOT wewj=7328) ACCURATE CREATININE CLEARANCE IN PREDICTING GLOMERULAR FILTRATION RATE. ESTIMATED GFR IS NOT APPLICABLE FOR DIALYSIS PATIENTS. [id number] 06:59:00 Test Item Value Reference Range Comments PHOSPHORUS (BEAKER) (test feqz=524) 2.3 mg/dL 2.3-4.7 [id number] 06:59:00 Test Item Value Reference Range Comments MAGNESIUM (BEAKER) (test gomd=914) 2.0 mg/dL 1.6-2.6 CALCIUM, [id number] 06:47:00 Test Item Value Reference Range Comments CALCIUM IONIZED (BEAKER) (test keun=212) 1.04 mmol/L 1.12-1.27 PH, BLOOD (BEAKER) (test dzey=7441) 7.38 POCT-GLUCOSE [id number] 23:29:00 Test Item Value Reference Range Comments POC-GLUCOSE METER (BEAKER) 196 mg/dL 70-110 TESTED AT [address] (test uogk=4900) [facility] [address] POCT-GLUCOSE [id number] 17:42:00 Test Item Value Reference Range Comments POC-GLUCOSE METER (BEAKER) 179 mg/dL 70-110 TESTED AT [address] (test boby=5950) [facility] [address] POCT-GLUCOSE [id number] 12:19:00 Test Item Value Reference Range Comments POC-GLUCOSE METER (BEAKER) 189 mg/dL 70-110 TESTED AT [address] (test href=2872) [facility] [address] POCT-GLUCOSE [id number] 08:34:00 Test Item Value Reference Range Comments POC-GLUCOSE METER (BEAKER) 119 mg/dL 70-110 TESTED AT [address] (test zbya=1755) [facility] [address] COMPREHENSIVE METABOLIC [id number] 02:54:00 Test Item Value Reference Range Comments TOTAL PROTEIN (BEAKER) 5.8 gm/dL 6.0-8.3 (test yqyx=516) ALBUMIN (BEAKER) (test 3.2 g/dL 3.5-5.0 bmkq=7796) ALKALINE PHOSPHATASE 65 U/L 40-150 (BEAKER) (test qmiv=826) BILIRUBIN TOTAL (BEAKER) 0.8 mg/dL 0.2-1.2 (test qezh=020) SODIUM (BEAKER) (test 134 meq/L 136-145 eshe=995) POTASSIUM (BEAKER) (test 3.6 meq/L 3.5-5.1 wgyl=759) CHLORIDE (BEAKER) (test 100 meq/L 98-107 gzza=856) CO2 (BEAKER) (test 25 meq/L 22-29 nbea=939) BLOOD UREA NITROGEN 43 mg/dL 7-21 (BEAKER) (test boot=070) CREATININE (BEAKER) (test 3.41 mg/dL 0.57-1.25 smds=764) GLUCOSE RANDOM (BEAKER) 90 mg/dL 70-105 (test zqhu=235) CALCIUM (BEAKER) (test 8.4 mg/dL 8.4-10.2 nztc=929) AST (SGOT) (BEAKER) (test 25 U/L 5-34 fomj=223) ALT (SGPT) (BEAKER) (test 16 U/L 6-55 semi=023) EGFR (BEAKER) (test 13 mL/min/1.73 sq m ESTIMATED GFR IS NOT ebam=7894) ACCURATE CREATININE CLEARANCE IN PREDICTING GLOMERULAR FILTRATION RATE. ESTIMATED GFR IS NOT APPLICABLE FOR DIALYSIS PATIENTS. [id number] 02:48:00 Test Item Value Reference Range Comments PHOSPHORUS (BEAKER) (test kmfa=867) 2.2 mg/dL 2.3-4.7 [id number] 02:48:00 Test Item Value Reference Range Comments MAGNESIUM (BEAKER) (test jqvf=972) 1.5 mg/dL 1.6-2.6 CALCIUM, [id number] 02:32:00 Test Item Value Reference Range Comments CALCIUM IONIZED (BEAKER) (test myrc=370) 0.93 mmol/L 1.12-1.27 PH, BLOOD (BEAKER) (test pptz=6510) 7.53 CBC W/PLT COUNT & AUTO [id number] 02:31:00 Test Item Value Reference Range Comments WHITE BLOOD CELL COUNT (BEAKER) (test ciyn=317) 12.6 K/ L 3.5-10.5 RED BLOOD CELL COUNT (BEAKER) (test djvo=517) 2.95 M/ L 3.93-5.22 HEMOGLOBIN (BEAKER) (test tvss=099) 9.3 GM/DL 11.2-15.7 HEMATOCRIT (BEAKER) (test azhj=431) 29.5 % 34.1-44.9 MEAN CORPUSCULAR VOLUME (BEAKER) (test frmy=887) 100.0 fL 79.4-94.8 MEAN CORPUSCULAR HEMOGLOBIN (BEAKER) (test 31.5 pg 25.6-32.2 infh=449) MEAN CORPUSCULAR HEMOGLOBIN CONC (BEAKER) (test 31.5 GM/DL 32.2-35.5 wdct=250) RED CELL DISTRIBUTION WIDTH (BEAKER) (test 17.2 % 11.7-14.4 fjfc=757) PLATELET COUNT (BEAKER) (test ifis=107) 198 K/CU MM 150-450 MEAN PLATELET VOLUME (BEAKER) (test zyih=006) 9.9 fL 9.4-12.3 NUCLEATED RED BLOOD CELLS (BEAKER) (test 2 /100 WBC 0-0 ebzy=052) NEUTROPHILS RELATIVE PERCENT (BEAKER) (test 72 % jmqh=090) LYMPHOCYTES RELATIVE PERCENT (BEAKER) (test 12 % fxhx=882) MONOCYTES RELATIVE PERCENT (BEAKER) (test 12 % owfj=581) EOSINOPHILS RELATIVE PERCENT (BEAKER) (test 1 % mrpu=973) BASOPHILS RELATIVE PERCENT (BEAKER) (test 0 % cuhp=126) NEUTROPHILS ABSOLUTE COUNT (BEAKER) (test 9.10 K/ L 1.56-6.13 nwok=712) LYMPHOCYTES ABSOLUTE COUNT (BEAKER) (test 1.47 K/ L 1.18-3.74 vcjd=764) MONOCYTES ABSOLUTE COUNT (BEAKER) (test 1.48 K/ L 0.24-0.36 rshb=914) EOSINOPHILS ABSOLUTE COUNT (BEAKER) (test 0.18 K/ L 0.04-0.36 pybe=149) BASOPHILS ABSOLUTE COUNT (BEAKER) (test 0.04 K/ L 0.01-0.08 hsxs=326) IMMATURE GRANULOCYTES-RELATIVE PERCENT (BEAKER) 3 % 0-1 (test gbjq=2306) POCT-GLUCOSE [id number] 02:17:00 Test Item Value Reference Range Comments POC-GLUCOSE METER (BEAKER) 97 mg/dL 70-110 TESTED AT [address] (test ekyu=6717) [facility] [address] POCT-GLUCOSE [id number] 21:04:00 Test Item Value Reference Range Comments POC-GLUCOSE METER (BEAKER) 147 mg/dL 70-110 TESTED AT [address] (test dyfw=8632) [facility] [address] POCT-GLUCOSE [id number] 17:42:00 Test Item Value Reference Range Comments POC-GLUCOSE METER (BEAKER) 172 mg/dL 70-110 TESTED AT [address] (test stql=4318) [facility] [address] POCT-GLUCOSE [id number] 12:05:00 Test Item Value Reference Range Comments POC-GLUCOSE METER (BEAKER) 124 mg/dL 70-110 TESTED AT [address] (test zxlc=1504) [facility] [address] POCT-GLUCOSE [id number] 07:37:00 Test Item Value Reference Range Comments POC-GLUCOSE METER (BEAKER) 94 mg/dL 70-110 TESTED AT [address] (test lmbb=0104) [facility] [address] RAD, CHEST, 1 VIEW, NON [id number] 04:50:00Reason for exam:->SOBShould this be performed at the bedside?->YesFINAL REPORT CLINICAL INDICATION: Shortness of breath Comparison: 08/11/2018 The examination is limited by lordotic positioning. The cardiomediastinal contours are stable. Central pulmonary vascular congestion and bilateral parenchymal opacities are partially improved, suggesting improving pulmonary edema. Small bilateral pleural effusions are present. There is no pneumothorax.A right IJ CVC has been removed. Signed: Ti Val[place] Verified Date/Time: 08/12/2018 04:50: 01 Reading Location: [address] Reading Room POCT-GLUCOSE [id number] 04:39:00 Test Item Value Reference Range Comments POC-GLUCOSE METER (BEAKER) 107 mg/dL 70-110 TESTED AT [address] (test gkup=0532) [facility] [address] COMPREHENSIVE METABOLIC [id number] 04:16:00 Test Item Value Reference Range Comments TOTAL PROTEIN (BEAKER) 5.6 gm/dL 6.0-8.3 (test loft=247) ALBUMIN (BEAKER) (test 3.2 g/dL 3.5-5.0 axfq=5734) ALKALINE PHOSPHATASE 66 U/L 40-150 (BEAKER) (test uqbk=623) BILIRUBIN TOTAL (BEAKER) 0.6 mg/dL 0.2-1.2 (test slji=038) SODIUM (BEAKER) (test 136 meq/L 136-145 fgyc=411) POTASSIUM (BEAKER) (test 4.0 meq/L 3.5-5.1 rgoc=047) CHLORIDE (BEAKER) (test 102 meq/L 98-107 llvh=470) CO2 (BEAKER) (test 25 meq/L 22-29 grsr=490) BLOOD UREA NITROGEN 38 mg/dL 7-21 (BEAKER) (test qoof=037) CREATININE (BEAKER) (test 3.33 mg/dL 0.57-1.25 cviu=262) GLUCOSE RANDOM (BEAKER) 105 mg/dL 70-105 (test tcqn=599) CALCIUM (BEAKER) (test 8.6 mg/dL 8.4-10.2 gpul=697) AST (SGOT) (BEAKER) (test 25 U/L 5-34 hoeq=950) ALT (SGPT) (BEAKER) (test 16 U/L 6-55 zkgo=389) EGFR (BEAKER) (test 13 mL/min/1.73 sq m ESTIMATED GFR IS NOT aveb=2641) ACCURATE CREATININE CLEARANCE IN PREDICTING GLOMERULAR FILTRATION RATE. ESTIMATED GFR IS NOT APPLICABLE FOR DIALYSIS PATIENTS. [id number] 04:11:00 Test Item Value Reference Range Comments PHOSPHORUS (BEAKER) (test lryd=813) 2.9 mg/dL 2.3-4.7 [id number] 04:11:00 Test Item Value Reference Range Comments MAGNESIUM (BEAKER) (test vccp=561) 1.9 mg/dL 1.6-2.6 CBC W/PLT COUNT & AUTO [id number] 03:57:00 Test Item Value Reference Range Comments WHITE BLOOD CELL COUNT (BEAKER) (test bxyy=588) 12.6 K/ L 3.5-10.5 RED BLOOD CELL COUNT (BEAKER) (test ulcr=075) 2.87 M/ L 3.93-5.22 HEMOGLOBIN (BEAKER) (test looa=182) 9.0 GM/DL 11.2-15.7 HEMATOCRIT (BEAKER) (test jxhw=224) 28.6 % 34.1-44.9 MEAN CORPUSCULAR VOLUME (BEAKER) (test qyoc=663) 99.7 fL 79.4-94.8 MEAN CORPUSCULAR HEMOGLOBIN (BEAKER) (test 31.4 pg 25.6-32.2 lxqf=598) MEAN CORPUSCULAR HEMOGLOBIN CONC (BEAKER) (test 31.5 GM/DL 32.2-35.5 frvm=492) RED CELL DISTRIBUTION WIDTH (BEAKER) (test 16.1 % 11.7-14.4 mvta=184) PLATELET COUNT (BEAKER) (test dezc=964) 204 K/CU MM 150-450 MEAN PLATELET VOLUME (BEAKER) (test vece=319) 10.5 fL 9.4-12.3 NUCLEATED RED BLOOD CELLS (BEAKER) (test 5 /100 WBC 0-0 vjvn=318) NEUTROPHILS RELATIVE PERCENT (BEAKER) (test 77 % bdsq=537) LYMPHOCYTES RELATIVE PERCENT (BEAKER) (test 9 % ubxz=571) MONOCYTES RELATIVE PERCENT (BEAKER) (test 11 % cejh=482) EOSINOPHILS RELATIVE PERCENT (BEAKER) (test 2 % kykk=888) BASOPHILS RELATIVE PERCENT (BEAKER) (test 0 % byuv=424) NEUTROPHILS ABSOLUTE COUNT (BEAKER) (test 9.64 K/ L 1.56-6.13 vnoc=515) LYMPHOCYTES ABSOLUTE COUNT (BEAKER) (test 1.07 K/ L 1.18-3.74 migl=294) MONOCYTES ABSOLUTE COUNT (BEAKER) (test 1.34 K/ L 0.24-0.36 qkqg=391) EOSINOPHILS ABSOLUTE COUNT (BEAKER) (test 0.19 K/ L 0.04-0.36 quiv=594) BASOPHILS ABSOLUTE COUNT (BEAKER) (test 0.03 K/ L 0.01-0.08 aval=890) IMMATURE GRANULOCYTES-RELATIVE PERCENT (BEAKER) 2 % 0-1 (test fxip=9683) CALCIUM, [id number] 03:25:00 Test Item Value Reference Range Comments CALCIUM IONIZED (BEAKER) (test xaqn=945) 1.10 mmol/L 1.12-1.27 PH, BLOOD (BEAKER) (test omls=1987) 7.43 POCT-GLUCOSE [id number] 00:03:00 Test Item Value Reference Range Comments POC-GLUCOSE METER (BEAKER) 122 mg/dL 70-110 TESTED AT [address] (test ptyp=7165) [place] [address] POCT-GLUCOSE [id number] 21:32:00 Test Item Value Reference Range Comments POC-GLUCOSE METER (BEAKER) 104 mg/dL 70-110 TESTED AT [address] (test zgvl=4042) [place] [address] POCT-GLUCOSE [id number] 17:51:00 Test Item Value Reference Range Comments POC-GLUCOSE METER (BEAKER) 151 mg/dL 70-110 TESTED AT [address] (test ilei=7262) [place] [address] BASIC METABOLIC [id number] 16:24:00 Test Item Value Reference Range Comments SODIUM (BEAKER) (test 133 meq/L 136-145 flts=558) POTASSIUM (BEAKER) (test 4.1 meq/L 3.5-5.1 Specimen slightly efwm=998) hemolyzed CHLORIDE (BEAKER) (test 101 meq/L 98-107 yywk=500) CO2 (BEAKER) (test 26 meq/L 22-29 rgqa=259) BLOOD UREA NITROGEN 34 mg/dL 7-21 (BEAKER) (test igfa=101) CREATININE (BEAKER) (test 3.12 mg/dL 0.57-1.25 Specimen slightly gnxt=290) hemolyzed GLUCOSE RANDOM (BEAKER) 167 mg/dL 70-105 (test fptp=193) CALCIUM (BEAKER) (test 8.4 mg/dL 8.4-10.2 hrhy=625) EGFR (BEAKER) (test 14 mL/min/1.73 sq m ESTIMATED GFR IS NOT fost=4936) ACCURATE CREATININE CLEARANCE IN PREDICTING GLOMERULAR FILTRATION RATE. ESTIMATED GFR IS NOT APPLICABLE FOR DIALYSIS PATIENTS. [id number] 16:22:00 Test Item Value Reference Range Comments MAGNESIUM (BEAKER) (test 1.8 mg/dL 1.6-2.6 Specimen slightly hemolyzed koam=128) POCT-GLUCOSE [id number] 11:45:00 Test Item Value Reference Range Comments POC-GLUCOSE METER (BEAKER) 141 mg/dL 70-110 TESTED AT [address] (test ibjg=1422) [place] [address] POCT-GLUCOSE [id number] 07:51:00 Test Item Value Reference Range Comments POC-GLUCOSE METER (BEAKER) 112 mg/dL 70-110 TESTED AT [place] [id number] [facility] (test kngr=9696) [place] [address] BASIC METABOLIC [id number] 05:18:00 Test Item Value Reference Range Comments SODIUM (BEAKER) (test 135 meq/L 136-145 igha=724) POTASSIUM (BEAKER) (test 4.7 meq/L 3.5-5.1 Specimen moderately phta=802) hemolyzed CHLORIDE (BEAKER) (test 103 meq/L 98-107 eukw=518) CO2 (BEAKER) (test 24 meq/L 22-29 kggc=118) BLOOD UREA NITROGEN 26 mg/dL 7-21 (BEAKER) (test zkxp=025) CREATININE (BEAKER) (test 2.47 mg/dL 0.57-1.25 Specimen moderately nngj=451) hemolyzed GLUCOSE RANDOM (BEAKER) 101 mg/dL 70-105 (test lrjs=179) CALCIUM (BEAKER) (test 8.8 mg/dL 8.4-10.2 tkti=929) EGFR (BEAKER) (test 19 mL/min/1.73 sq m ESTIMATED GFR IS NOT lbyo=2871) ACCURATE CREATININE CLEARANCE IN PREDICTING GLOMERULAR FILTRATION RATE. ESTIMATED GFR IS NOT APPLICABLE FOR DIALYSIS PATIENTS. [id number] 05:12:00 Test Item Value Reference Range Comments MAGNESIUM (BEAKER) (test 2.0 mg/dL 1.6-2.6 Specimen moderately hemolyzed cztd=144) CBC W/PLT COUNT & AUTO [id number] 04:19:00 Test Item Value Reference Range Comments WHITE BLOOD CELL COUNT (BEAKER) (test byld=045) 14.3 K/ L 3.5-10.5 RED BLOOD CELL COUNT (BEAKER) (test ybed=231) 3.03 M/ L 3.93-5.22 HEMOGLOBIN (BEAKER) (test juaz=901) 9.4 GM/DL 11.2-15.7 HEMATOCRIT (BEAKER) (test jryh=028) 29.2 % 34.1-44.9 MEAN CORPUSCULAR VOLUME (BEAKER) (test xtyt=697) 96.4 fL 79.4-94.8 MEAN CORPUSCULAR HEMOGLOBIN (BEAKER) (test 31.0 pg 25.6-32.2 jgwj=004) MEAN CORPUSCULAR HEMOGLOBIN CONC (BEAKER) (test 32.2 GM/DL 32.2-35.5 imxw=172) RED CELL DISTRIBUTION WIDTH (BEAKER) (test 15.5 % 11.7-14.4 hyfn=076) PLATELET COUNT (BEAKER) (test gwtr=404) 209 K/CU MM 150-450 MEAN PLATELET VOLUME (BEAKER) (test negw=095) 10.4 fL 9.4-12.3 NUCLEATED RED BLOOD CELLS (BEAKER) (test 4 /100 WBC 0-0 qgai=330) NEUTROPHILS RELATIVE PERCENT (BEAKER) (test 80 % naao=002) LYMPHOCYTES RELATIVE PERCENT (BEAKER) (test 6 % ccqk=168) MONOCYTES RELATIVE PERCENT (BEAKER) (test 11 % xqqx=131) EOSINOPHILS RELATIVE PERCENT (BEAKER) (test 1 % wxak=969) BASOPHILS RELATIVE PERCENT (BEAKER) (test 0 % msbs=022) NEUTROPHILS ABSOLUTE COUNT (BEAKER) (test 11.46 K/ L 1.56-6.13 xpty=676) LYMPHOCYTES ABSOLUTE COUNT (BEAKER) (test 0.80 K/ L 1.18-3.74 afah=168) MONOCYTES ABSOLUTE COUNT (BEAKER) (test 1.60 K/ L 0.24-0.36 jtfq=075) EOSINOPHILS ABSOLUTE COUNT (BEAKER) (test 0.07 K/ L 0.04-0.36 lblr=974) BASOPHILS ABSOLUTE COUNT (BEAKER) (test 0.03 K/ L 0.01-0.08 eepr=176) IMMATURE GRANULOCYTES-RELATIVE PERCENT (BEAKER) 3 % 0-1 (test tzws=6583) RAD, CHEST, 1 VIEW, NON [id number] 03:48:00Reason for exam:->SOBShould this be performed at the bedside?->YesFINAL REPORT RAD , CHEST, 1 VIEW, NON DEPT INDICATION: SOB COMPARISON: Prior day's exam FINDINGS : Portable frontal view of the chest. IMPRESSION: Support Lines: Stable. Lungs and pleura: Unchanged airspace and pleural opacities. No pneumothorax.Heart and mediastinum: Stable contours. Additional findings: None. Signed: Desire M[facility]dezday [facility] Verified Date/Time: 08/11/2018 03:48:09 POCT -GLUCOSE [id number] 23:26:00 Test Item Value Reference Range Comments POC-GLUCOSE METER (BEAKER) 101 mg/dL 70-[address] [facility] [address] [facility] (test tmtu=0951) [facility] [address] POCT-GLUCOSE [id number] 18:11:00 Test Item Value Reference Range Comments POC-GLUCOSE METER (BEAKER) 171 mg/dL 70-110 TESTED AT [address] (test hklm=8585) [facility] [address] BASIC METABOLIC [id number] 16:14:00 Test Item Value Reference Range Comments SODIUM (BEAKER) (test 134 meq/L 136-145 zhnc=632) POTASSIUM (BEAKER) (test 4.6 meq/L 3.5-5.1 yjlx=811) CHLORIDE (BEAKER) (test 102 meq/L 98-107 nlrx=073) CO2 (BEAKER) (test 25 meq/L 22-29 txdo=321) BLOOD UREA NITROGEN 51 mg/dL 7-21 (BEAKER) (test vrfd=605) CREATININE (BEAKER) (test 3.89 mg/dL 0.57-1.25 hcmj=552) GLUCOSE RANDOM (BEAKER) 182 mg/dL 70-105 (test lgzh=911) CALCIUM (BEAKER) (test 8.2 mg/dL 8.4-10.2 qfmz=201) EGFR (BEAKER) (test 11 mL/min/1.73 sq m ESTIMATED GFR IS NOT ppze=7975) ACCURATE CREATININE CLEARANCE IN PREDICTING GLOMERULAR FILTRATION RATE. ESTIMATED GFR IS NOT APPLICABLE FOR DIALYSIS PATIENTS. [id number] 16:07:00 Test Item Value Reference Range Comments MAGNESIUM (BEAKER) (test mjne=343) 2.0 mg/dL 1.6-2.6 LACTIC ACID, [id number] 15:23:00 Test Item Value Reference Range Comments LACTATE BLOOD ARTERIAL (2) (BEAKER) (test 0.9 mmol/L 0.5-2.2 gohw=6283) RAD, CHEST, 1 VIEW, NON [id number] 15:07:00Reason for exam:-> hypoxemiaShould this be performed [...] MDReport Verified Date/Time: 08/10/2018 15:07:53 Reading Location: [facility] B1 C013W Consult Reading Room 03: 07 PMBLOOD GAS, [id number] 14:53:00 Test Item Value Reference Range Comments PH ARTERIAL (BEAKER) (test edga=707) 7.44 7.35-7.45 PCO2 ARTERIAL (BEAKER) (test vgmc=996) 38 mmHg 35-45 PO2 ARTERIAL (BEAKER) (test mrhe=854) 165 mmHg 80-90 O2 SATURATION ARTERIAL (BEAKER) (test tdvc=196) 99.2 % 96.0-97.0 HCO3 ARTERIAL (BEAKER) (test dfac=215) 26 mmol/L 21-29 BASE EXCESS ARTERIAL (BEAKER) (test jzgn=059) 1.1 mmol/L -2.0-3.0 PATIENT TEMPERATURE (BEAKER) (test levl=2258) 36.4 C FIO2 (BEAKER) (test rrbn=5948) 44.0 % POCT-GLUCOSE [id number] 12:20:00 Test Item Value Reference Range Comments POC-GLUCOSE METER (BEAKER) 208 mg/dL 70-110 TESTED AT [address] (test fupu=7081) [facility] [address] CBC W/PLT COUNT & AUTO [id number] 08:56:00 Test Item Value Reference Range Comments WHITE BLOOD CELL COUNT (BEAKER) (test vjlj=033) 12.2 K/ L 3.5-10.5 RED BLOOD CELL COUNT (BEAKER) (test zihq=291) 2.87 M/ L 3.93-5.22 HEMOGLOBIN (BEAKER) (test mxjt=465) 8.8 GM/DL 11.2-15.7 HEMATOCRIT (BEAKER) (test bdsd=897) 27.4 % 34.1-44.9 MEAN CORPUSCULAR VOLUME (BEAKER) (test geka=974) 95.5 fL 79.4-94.8 MEAN CORPUSCULAR HEMOGLOBIN (BEAKER) (test 30.7 pg 25.6-32.2 isnm=877) MEAN CORPUSCULAR HEMOGLOBIN CONC (BEAKER) (test 32.1 GM/DL 32.2-35.5 bnmo=680) RED CELL DISTRIBUTION WIDTH (BEAKER) (test 15.1 % 11.7-14.4 utrn=942) PLATELET COUNT (BEAKER) (test budl=238) 224 K/CU MM 150-450 MEAN PLATELET VOLUME (BEAKER) (test ejmj=527) 9.8 fL 9.4-12.3 NUCLEATED RED BLOOD CELLS (BEAKER) (test 1 /100 WBC 0-0 jycm=678) (CELLAVISION MANUAL DIFF)2018-08-10 08:56:00 Test Item Value Reference Range Comments NEUTROPHILS - REL (CELLAVISION)(BEAKER) (test 80 % btgb=5597) LYMPHOCYTES - REL (CELLAVISION)(BEAKER) (test 7 % perr=1593) MONOCYTES - REL (CELLAVISION)(BEAKER) (test 10 % ipuv=8826) EOSINOPHILS - REL (CELLAVISION)(BEAKER) (test 2 % yuwq=9063) NEUTROPHILS - ABS (CELLAVISION)(BEAKER) (test 9.76 K/ul 1.56-6.13 skff=4141) LYMPHOCYTES - ABS (CELLAVISION)(BEAKER) (test 0.85 K/ul 1.18-3.74 wwbp=5063) MONOCYTES - ABS (CELLAVISION)(BEAKER) (test 1.22 K/uL 0.24-0.36 hpag=7284) EOSINOPHILS - ABS (CELLAVISION)(BEAKER) (test 0.24 K/uL 0.04-0.36 nslu=4078) TOTAL COUNTED (BEAKER) (test jlqz=5264) 100 MANUAL NRBC PER 100 CELLS (BEAKER) (test 2 /100 WBC 0-0 jvys=1569) PLT MORPHOLOGY (BEAKER) (test gpea=260) Normal TOXIC GRANULATION (BEAKER) (test npos=266) Present POLYCHROMATOPHILLIC RBCS(BEAKER) (test awrr=453) 1+ few ARTIFACT (CELLAVISION)(BEAKER) (test xibm=8584) Present PLATELET CONCENTRATION (CELLAVISION)(BEAKER) Adequate (test ukzp=8615) Received comment: User comments: Slide comments:ALEX CHEST, 1 VIEW, NON [id number] 08:03:00Reason for exam:->SOBShould this be performed [...] Navarro MDReport Verified Date/Time: 08:03:28 Reading Location: [facility] Radiology Reading Room POCT- GLUCOSE [id number] 07:51:00 Test Item Value Reference Range Comments POC-GLUCOSE METER (BEAKER) 129 mg/dL 70-110 TESTED AT [address] (test nqyi=5514) [facility] [address] POCT-GLUCOSE [id number] 06:38:00 Test Item Value Reference Range Comments POC-GLUCOSE METER (BEAKER) 193 mg/dL 70-110 TESTED AT [address] (test kllt=6160) [facility] [address] POCT-GLUCOSE [id number] 05:48:00 Test Item Value Reference Range Comments POC-GLUCOSE METER (BEAKER) 67 mg/dL 70-110 TESTED AT [address] (test mhqh=8100) [facility] [address] BASIC METABOLIC [id number] 05:07:00 Test Item Value Reference Range Comments SODIUM (BEAKER) (test 137 meq/L 136-145 rvdc=870) POTASSIUM (BEAKER) (test 4.1 meq/L 3.5-5.1 Specimen slightly hyww=644) hemolyzed CHLORIDE (BEAKER) (test 103 meq/L 98-107 vwtm=466) CO2 (BEAKER) (test 26 meq/L 22-29 tgnl=488) BLOOD UREA NITROGEN 45 mg/dL 7-21 (BEAKER) (test mghw=216) CREATININE (BEAKER) (test 2.97 mg/dL 0.57-1.25 Specimen slightly lvvk=300) hemolyzed GLUCOSE RANDOM (BEAKER) 66 mg/dL 70-105 (test ezgb=977) CALCIUM (BEAKER) (test 9.1 mg/dL 8.4-10.2 vxhq=946) EGFR (BEAKER) (test 15 mL/min/1.73 sq m ESTIMATED GFR IS NOT veso=7531) ACCURATE CREATININE CLEARANCE IN PREDICTING GLOMERULAR FILTRATION RATE. ESTIMATED GFR IS NOT APPLICABLE FOR DIALYSIS PATIENTS. [id number] 05:06:00 Test Item Value Reference Range Comments MAGNESIUM (BEAKER) (test 2.0 mg/dL 1.6-2.6 Specimen slightly hemolyzed cwfh=852) POCT-GLUCOSE [id number] 20:02:00 Test Item Value Reference Range Comments POC-GLUCOSE METER (BEAKER) 95 mg/dL 70-110 TESTED AT [address] (test plqy=1351) [place] [address] POCT-GLUCOSE [id number] 17:35:00 Test Item Value Reference Range Comments POC-GLUCOSE METER (BEAKER) 144 mg/dL 70-110 TESTED AT [address] (test plvd=4563) [place] [address] POCT-GLUCOSE [id number] 13:42:00 Test Item Value Reference Range Comments POC-GLUCOSE METER (BEAKER) 180 mg/dL 70-110 TESTED AT [address] (test pnnq=4061) [place] [address] POCT-GLUCOSE [id number] 07:56:00 Test Item Value Reference Range Comments POC-GLUCOSE METER (BEAKER) 206 mg/dL 70-110 TESTED AT [address] (test ikrb=3461) [place] [address] CBC W/PLT COUNT & AUTO [id number] 06:25:00 Test Item Value Reference Range Comments WHITE BLOOD CELL COUNT (BEAKER) (test kkfi=297) 13.6 K/ L 3.5-10.5 RED BLOOD CELL COUNT (BEAKER) (test islh=392) 2.66 M/ L 3.93-5.22 HEMOGLOBIN (BEAKER) (test qacg=039) 8.2 GM/DL 11.2-15.7 HEMATOCRIT (BEAKER) (test aumh=667) 25.5 % 34.1-44.9 MEAN CORPUSCULAR VOLUME (BEAKER) (test qzqf=970) 95.9 fL 79.4-94.8 MEAN CORPUSCULAR HEMOGLOBIN (BEAKER) (test 30.8 pg 25.6-32.2 orap=758) MEAN CORPUSCULAR HEMOGLOBIN CONC (BEAKER) (test 32.2 GM/DL 32.2-35.5 klck=071) RED CELL DISTRIBUTION WIDTH (BEAKER) (test 14.9 % 11.7-14.4 tsdf=993) PLATELET COUNT (BEAKER) (test zdzt=595) 278 K/CU MM 150-450 MEAN PLATELET VOLUME (BEAKER) (test ryvz=560) 10.2 fL 9.4-12.3 NUCLEATED RED BLOOD CELLS (BEAKER) (test 0 /100 WBC 0-0 tuup=923) NEUTROPHILS RELATIVE PERCENT (BEAKER) (test 82 % dlcg=851) LYMPHOCYTES RELATIVE PERCENT (BEAKER) (test 5 % gicb=982) MONOCYTES RELATIVE PERCENT (BEAKER) (test 13 % chmi=074) EOSINOPHILS RELATIVE PERCENT (BEAKER) (test 0 % otey=908) BASOPHILS RELATIVE PERCENT (BEAKER) (test 0 % edur=850) NEUTROPHILS ABSOLUTE COUNT (BEAKER) (test 11.05 K/ L 1.56-6.13 jagy=133) LYMPHOCYTES ABSOLUTE COUNT (BEAKER) (test 0.63 K/ L 1.18-3.74 ckix=037) MONOCYTES ABSOLUTE COUNT (BEAKER) (test 1.74 K/ L 0.24-0.36 nqnj=880) EOSINOPHILS ABSOLUTE COUNT (BEAKER) (test 0.00 K/ L 0.04-0.36 kxvh=628) BASOPHILS ABSOLUTE COUNT (BEAKER) (test 0.01 K/ L 0.01-0.08 ihuq=863) IMMATURE GRANULOCYTES-RELATIVE PERCENT (BEAKER) 1 % 0-1 (test qpit=7053) BASIC METABOLIC [id number] 06:22:00 Test Item Value Reference Range Comments SODIUM (BEAKER) (test 135 meq/L 136-145 vhsg=820) POTASSIUM (BEAKER) (test 4.8 meq/L 3.5-5.1 Specimen moderately rguf=594) hemolyzed CHLORIDE (BEAKER) (test 102 meq/L 98-107 kvny=388) CO2 (BEAKER) (test 18 meq/L 22-29 imoa=144) BLOOD UREA NITROGEN 84 mg/dL 7-21 (BEAKER) (test ikaw=657) CREATININE (BEAKER) (test 4.72 mg/dL 0.57-1.25 Specimen moderately ybsk=256) hemolyzed GLUCOSE RANDOM (BEAKER) 205 mg/dL 70-105 (test lfpd=499) CALCIUM (BEAKER) (test 8.5 mg/dL 8.4-10.2 uagp=934) EGFR (BEAKER) (test 9 mL/min/1.73 sq m ESTIMATED GFR IS NOT fssq=0463) ACCURATE CREATININE CLEARANCE IN PREDICTING GLOMERULAR FILTRATION RATE. ESTIMATED GFR IS NOT APPLICABLE FOR DIALYSIS PATIENTS. RAD, CHEST, 1 VIEW, NON [id number] 05:59:00Reason for exam:->SOBShould this be performed at [...] Desire Méndezort Verified Date/Time: 08/09/2018 05:59:24 POCT-GLUCOSE [id number] 22:05:00 Test Item Value Reference Range Comments POC-GLUCOSE METER (BEAKER) 254 mg/dL 70-[address] [facility] [address] [facility] (test lepv=3798) [facility] [id number] POCT-GLUCOSE [id number] 18:33:00 Test Item Value Reference Range Comments POC-GLUCOSE METER (BEAKER) 271 mg/dL 70-[address] [facility] [address] [facility] (test kvwx=3824) [facility] [address] RAD, CHEST, 1 VIEW, NON [id number] 15:44:00Reason for exam:->IABP placementShould this be performed [...] the lower cervical spine. Signed: Heather Tracey [facility] Verified Date/Time: 08/08/2018 15:44:27 Reading Location: [facility] Mammo Reading Room RAD, CHEST, 1 VIEW, NON [id number] 13:42: 00Reason for exam:->IABP positionShould this be [...] head. The bones appear demineralized. Signed: Heather Tracey Verified Date/Time: 08/08/2018 13:42:06 Reading Location: [facility] Mammo Reading Room POCT-GLUCOSE [id number] 13:28:00 Test Item Value Reference Range Comments POC-GLUCOSE METER (BEAKER) 294 mg/dL 70-110 TESTED AT [address] (test edtx=5240) [place] [address] RAD, CHEST, 1 VIEW, NON [id number] 08:20:00Reason for exam:->SOBShould this be performed at [...] 2.4 cm below the ramírez. Signed: Terry Sauer Verified Date/Time: 08/08/2018 08:20:51 Reading Location: [facility] Radiology Reading Room POCT-GLUCOSE [id number] 07:57:00 Test Item Value Reference Range Comments POC-GLUCOSE METER (BEAKER) 286 mg/dL 70-110 TESTED AT [address] (test fvgg=6248) [place] [address] CBC W/PLT COUNT & AUTO [id number] 05:11:00 Test Item Value Reference Range Comments WHITE BLOOD CELL COUNT (BEAKER) (test ohlr=349) 11.2 K/ L 3.5-10.5 RED BLOOD CELL COUNT (BEAKER) (test xhst=850) 2.71 M/ L 3.93-5.22 HEMOGLOBIN (BEAKER) (test ybod=236) 8.3 GM/DL 11.2-15.7 HEMATOCRIT (BEAKER) (test kbbs=563) 26.1 % 34.1-44.9 MEAN CORPUSCULAR VOLUME (BEAKER) (test iedn=736) 96.3 fL 79.4-94.8 MEAN CORPUSCULAR HEMOGLOBIN (BEAKER) (test 30.6 pg 25.6-32.2 hvph=156) MEAN CORPUSCULAR HEMOGLOBIN CONC (BEAKER) (test 31.8 GM/DL 32.2-35.5 utjb=220) RED CELL DISTRIBUTION WIDTH (BEAKER) (test 14.0 % 11.7-14.4 afpq=111) PLATELET COUNT (BEAKER) (test ryzl=542) 227 K/CU MM 150-450 MEAN PLATELET VOLUME (BEAKER) (test cbmh=359) 10.6 fL 9.4-12.3 NUCLEATED RED BLOOD CELLS (BEAKER) (test 0 /100 WBC 0-0 sfcd=390) NEUTROPHILS RELATIVE PERCENT (BEAKER) (test 90 % lekl=876) LYMPHOCYTES RELATIVE PERCENT (BEAKER) (test 4 % nfmi=088) MONOCYTES RELATIVE PERCENT (BEAKER) (test 4 % jpxw=677) EOSINOPHILS RELATIVE PERCENT (BEAKER) (test 0 % xnec=508) BASOPHILS RELATIVE PERCENT (BEAKER) (test 0 % pskn=349) NEUTROPHILS ABSOLUTE COUNT (BEAKER) (test 10.06 K/ L 1.56-6.13 bgkh=756) LYMPHOCYTES ABSOLUTE COUNT (BEAKER) (test 0.45 K/ L 1.18-3.74 nhyg=976) MONOCYTES ABSOLUTE COUNT (BEAKER) (test 0.48 K/ L 0.24-0.36 caiq=281) EOSINOPHILS ABSOLUTE COUNT (BEAKER) (test 0.00 K/ L 0.04-0.36 mfac=599) BASOPHILS ABSOLUTE COUNT (BEAKER) (test 0.03 K/ L 0.01-0.08 vjsn=613) IMMATURE GRANULOCYTES-RELATIVE PERCENT (BEAKER) 2 % 0-1 (test xetr=9026) [id number] 04:43:00 Test Item Value Reference Range Comments MAGNESIUM (BEAKER) (test idva=927) 2.3 mg/dL 1.6-2.6 BASIC METABOLIC [id number] 04:43:00 Test Item Value Reference Range Comments SODIUM (BEAKER) (test 135 meq/L 136-145 glqv=692) POTASSIUM (BEAKER) (test 4.9 meq/L 3.5-5.1 ilcx=763) CHLORIDE (BEAKER) (test 102 meq/L 98-107 yiyg=279) CO2 (BEAKER) (test 18 meq/L 22-29 adzi=482) BLOOD UREA NITROGEN 68 mg/dL 7-21 (BEAKER) (test wyik=695) CREATININE (BEAKER) (test 3.54 mg/dL 0.57-1.25 cvce=968) GLUCOSE RANDOM (BEAKER) 267 mg/dL 70-105 (test wumk=922) CALCIUM (BEAKER) (test 8.6 mg/dL 8.4-10.2 yfdq=615) EGFR (BEAKER) (test 12 mL/min/1.73 sq m ESTIMATED GFR IS NOT otja=2252) ACCURATE CREATININE CLEARANCE IN PREDICTING GLOMERULAR FILTRATION RATE. ESTIMATED GFR IS NOT APPLICABLE FOR DIALYSIS PATIENTS. POCT-GLUCOSE [id number] 22:27:00 Test Item Value Reference Range Comments POC-GLUCOSE METER (BEAKER) 279 mg/dL 70-110 TESTED AT [address] (test cvxt=0866) [facility] [address] BASIC METABOLIC [id number] 22:17:00 Test Item Value Reference Range Comments SODIUM (BEAKER) (test 133 meq/L 136-145 dwsx=814) POTASSIUM (BEAKER) (test 4.6 meq/L 3.5-5.1 qexe=030) CHLORIDE (BEAKER) (test 100 meq/L 98-107 zajs=532) CO2 (BEAKER) (test 18 meq/L 22-29 aqcz=055) BLOOD UREA NITROGEN 64 mg/dL 7-21 (BEAKER) (test xikq=689) CREATININE (BEAKER) (test 3.59 mg/dL 0.57-1.25 gauy=722) GLUCOSE RANDOM (BEAKER) 250 mg/dL 70-105 (test rblr=617) CALCIUM (BEAKER) (test 8.3 mg/dL 8.4-10.2 ioea=669) EGFR (BEAKER) (test 12 mL/min/1.73 sq m ESTIMATED GFR IS NOT tgld=5689) ACCURATE CREATININE CLEARANCE IN PREDICTING GLOMERULAR FILTRATION RATE. ESTIMATED GFR IS NOT APPLICABLE FOR DIALYSIS PATIENTS. [id number] 22:13:00 Test Item Value Reference Range Comments MAGNESIUM (BEAKER) (test tebo=546) 2.1 mg/dL 1.6-2.6 [id number] 19:37:00 Test Item Value Reference Range Comments ACTIVATED CLOTTING TIME 268 sec TESTED AT [address] (BEAKER) (test ddyp=346) [place] [address] [id number] 18:30:00 Test Item Value Reference Range Comments ACTIVATED CLOTTING TIME 257 sec TESTED AT [address] (BEAKER) (test mwtz=394) [place] [address] [id number] 17:58:00 Test Item Value Reference Range Comments ACTIVATED CLOTTING TIME 219 sec TESTED AT [address] (BEAKER) (test wdqh=861) [place] [address] [id number] 17:58:00 Test Item Value Reference Range Comments ACTIVATED CLOTTING TIME > sec OUTSIDE MEASURING RANGETESTED AT (BEAKER) (test wnvp=665) [place] [id number] POCT-GLUCOSE [id number] 12:23:00 Test Item Value Reference Range Comments POC-GLUCOSE METER (BEAKER) 169 mg/dL 70-110 TESTED AT [address] (test wbhx=4083) [place] [address] RAD, CHEST, 1 VIEW, NON [id number] 09:10:00Reason for exam:->SOBShould this be performed at the bedside?->YesFINAL REPORT Chest dated 08/07/2018 COMPARISON: 08/06/2018 Clinical Information: SOB Comment: Heart is enlarged. Pulmonary vasculature is indistinct. Interstitial disease is seen bilaterally suggestive of vascular congestion or pulmonary edema. There is small bilateral pleural effusion. IMPRESSION: No interval change. Signed: Yuan Arangoeport Verified Date/Time: 08/07/2018 09:10:23 Reading Location: [facility] Radiology Reading Room POCT-GLUCOSE [id number] 07:49:00 Test Item Value Reference Range Comments POC-GLUCOSE METER (BEAKER) 165 mg/dL 70-110 TESTED AT [address] (test fbpl=4028) [facility] [address] COMPREHENSIVE METABOLIC [id number] 06:00:00 Test Item Value Reference Range Comments TOTAL PROTEIN (BEAKER) 6.0 gm/dL 6.0-8.3 (test gmvv=424) ALBUMIN (BEAKER) (test 3.3 g/dL 3.5-5.0 clio=0157) ALKALINE PHOSPHATASE 58 U/L 40-150 (BEAKER) (test ubjz=699) BILIRUBIN TOTAL (BEAKER) 0.4 mg/dL 0.2-1.2 (test pxot=600) SODIUM (BEAKER) (test 135 meq/L 136-145 oobw=200) POTASSIUM (BEAKER) (test 4.1 meq/L 3.5-5.1 wlmw=982) CHLORIDE (BEAKER) (test 102 meq/L 98-107 rccm=949) CO2 (BEAKER) (test 24 meq/L 22-29 hrij=393) BLOOD UREA NITROGEN 52 mg/dL 7-21 (BEAKER) (test umbf=433) CREATININE (BEAKER) (test 3.23 mg/dL 0.57-1.25 hkxq=888) GLUCOSE RANDOM (BEAKER) 154 mg/dL 70-105 (test otfl=942) CALCIUM (BEAKER) (test 8.3 mg/dL 8.4-10.2 euan=103) AST (SGOT) (BEAKER) (test 31 U/L 5-34 jayr=108) ALT (SGPT) (BEAKER) (test 17 U/L 6-55 zrny=756) EGFR (BEAKER) (test 14 mL/min/1.73 sq m ESTIMATED GFR IS NOT ahrf=0202) ACCURATE CREATININE CLEARANCE IN PREDICTING GLOMERULAR FILTRATION RATE. ESTIMATED GFR IS NOT APPLICABLE FOR DIALYSIS PATIENTS. [id number] 05:56:00 Test Item Value Reference Range Comments PHOSPHORUS (BEAKER) (test pfzp=167) 2.9 mg/dL 2.3-4.7 [id number] 05:56:00 Test Item Value Reference Range Comments MAGNESIUM (BEAKER) (test esue=968) 2.0 mg/dL 1.6-2.6 CBC W/PLT COUNT & AUTO [id number] 05:42:00 Test Item Value Reference Range Comments WHITE BLOOD CELL COUNT (BEAKER) (test sqsp=159) 9.6 K/ L 3.5-10.5 RED BLOOD CELL COUNT (BEAKER) (test rewt=220) 2.84 M/ L 3.93-5.22 HEMOGLOBIN (BEAKER) (test kgge=314) 8.8 GM/DL 11.2-15.7 HEMATOCRIT (BEAKER) (test nxcm=352) 27.2 % 34.1-44.9 MEAN CORPUSCULAR VOLUME (BEAKER) (test aoaf=070) 95.8 fL 79.4-94.8 MEAN CORPUSCULAR HEMOGLOBIN (BEAKER) (test 31.0 pg 25.6-32.2 iais=679) MEAN CORPUSCULAR HEMOGLOBIN CONC (BEAKER) (test 32.4 GM/DL 32.2-35.5 tcbw=619) RED CELL DISTRIBUTION WIDTH (BEAKER) (test 14.1 % 11.7-14.4 pong=041) PLATELET COUNT (BEAKER) (test evfs=600) 218 K/CU MM 150-450 MEAN PLATELET VOLUME (BEAKER) (test llkp=000) 10.2 fL 9.4-12.3 NUCLEATED RED BLOOD CELLS (BEAKER) (test 0 /100 WBC 0-0 przo=475) NEUTROPHILS RELATIVE PERCENT (BEAKER) (test 76 % skvp=791) LYMPHOCYTES RELATIVE PERCENT (BEAKER) (test 9 % pbex=128) MONOCYTES RELATIVE PERCENT (BEAKER) (test 12 % mhkz=326) EOSINOPHILS RELATIVE PERCENT (BEAKER) (test 1 % ivwh=836) BASOPHILS RELATIVE PERCENT (BEAKER) (test 0 % vswz=313) NEUTROPHILS ABSOLUTE COUNT (BEAKER) (test 7.35 K/ L 1.56-6.13 bgsd=613) LYMPHOCYTES ABSOLUTE COUNT (BEAKER) (test 0.84 K/ L 1.18-3.74 bscn=224) MONOCYTES ABSOLUTE COUNT (BEAKER) (test 1.16 K/ L 0.24-0.36 ofax=571) EOSINOPHILS ABSOLUTE COUNT (BEAKER) (test 0.13 K/ L 0.04-0.36 xeht=924) BASOPHILS ABSOLUTE COUNT (BEAKER) (test 0.04 K/ L 0.01-0.08 opwc=491) IMMATURE GRANULOCYTES-RELATIVE PERCENT (BEAKER) 1 % 0-1 (test zmfv=1103) CALCIUM, [id number] 05:32:00 Test Item Value Reference Range Comments CALCIUM IONIZED (BEAKER) (test asez=970) 1.12 mmol/L 1.12-1.27 PH, BLOOD (BEAKER) (test fncn=2546) 7.36 POCT-GLUCOSE [id number] 21:35:00 Test Item Value Reference Range Comments POC-GLUCOSE METER (BEAKER) 143 mg/dL 70-110 TESTED AT [address] (test bdhc=8112) [facility] [address] POCT-GLUCOSE [id number] 17:31:00 Test Item Value Reference Range Comments POC-GLUCOSE METER (BEAKER) 105 mg/dL 70-110 TESTED AT [address] (test pxbb=8750) [facility] [address] POCT-GLUCOSE [id number] 12:46:00 Test Item Value Reference Range Comments POC-GLUCOSE METER (BEAKER) 159 mg/dL 70-110 TESTED AT [address] (test zdzy=7824) [facility] [address] POCT-GLUCOSE [id number] 07:40:00 Test Item Value Reference Range Comments POC-GLUCOSE METER (BEAKER) 120 mg/dL 70-110 TESTED AT [address] (test kkzo=0602) [facility] [address] [id number] 04:52:00 Test Item Value Reference Range Comments MAGNESIUM (BEAKER) (test mgof=708) 1.8 mg/dL 1.6-2.6 BASIC METABOLIC [id number] 04:52:00 Test Item Value Reference Range Comments SODIUM (BEAKER) (test 137 meq/L 136-145 ngwg=585) POTASSIUM (BEAKER) (test 3.8 meq/L 3.5-5.1 qguy=063) CHLORIDE (BEAKER) (test 105 meq/L 98-107 jcyh=171) CO2 (BEAKER) (test 23 meq/L 22-29 xucx=661) BLOOD UREA NITROGEN 51 mg/dL 7-21 (BEAKER) (test lxlx=169) CREATININE (BEAKER) (test 2.93 mg/dL 0.57-1.25 jflq=288) GLUCOSE RANDOM (BEAKER) 108 mg/dL 70-105 (test yroo=828) CALCIUM (BEAKER) (test 8.4 mg/dL 8.4-10.2 qivw=025) EGFR (BEAKER) (test 16 mL/min/1.73 sq m ESTIMATED GFR IS NOT lkjq=0436) ACCURATE CREATININE CLEARANCE IN PREDICTING GLOMERULAR FILTRATION RATE. ESTIMATED GFR IS NOT APPLICABLE FOR DIALYSIS PATIENTS. RAD, CHEST, 1 VIEW, NON [id number] 04:45:00Reason for exam:->SOBShould this be performed at [...] In summary, no significantinterval change. Signed: Helder Banguraeport Verified Date/Time: 08/06/2018 04:45:08 Reading Location: [address] Reading Room [id number] 04:31:00 Test Item Value Reference Range Comments PARTIAL THROMBOPLASTIN TIME (BEAKER) (test 45.7 seconds 22.5-36.0 uofc=984) 4 hours after the start of continuous infusion and 4 hours after any rate changeCBC W/PLT COUNT & AUTO [id number] 04:23:00 Test Item Value Reference Range Comments WHITE BLOOD CELL COUNT (BEAKER) (test vqnr=054) 8.8 K/ L 3.5-10.5 RED BLOOD CELL COUNT (BEAKER) (test soix=997) 2.95 M/ L 3.93-5.22 HEMOGLOBIN (BEAKER) (test zfvl=997) 9.1 GM/DL 11.2-15.7 HEMATOCRIT (BEAKER) (test mlha=230) 27.9 % 34.1-44.9 MEAN CORPUSCULAR VOLUME (BEAKER) (test uauc=714) 94.6 fL 79.4-94.8 MEAN CORPUSCULAR HEMOGLOBIN (BEAKER) (test 30.8 pg 25.6-32.2 wytj=925) MEAN CORPUSCULAR HEMOGLOBIN CONC (BEAKER) (test 32.6 GM/DL 32.2-35.5 hygw=375) RED CELL DISTRIBUTION WIDTH (BEAKER) (test 13.4 % 11.7-14.4 yqjt=539) PLATELET COUNT (BEAKER) (test agym=430) 223 K/CU MM 150-450 MEAN PLATELET VOLUME (BEAKER) (test jofh=744) 10.0 fL 9.4-12.3 NUCLEATED RED BLOOD CELLS (BEAKER) (test 0 /100 WBC 0-0 mwdz=764) NEUTROPHILS RELATIVE PERCENT (BEAKER) (test 75 % tpru=897) LYMPHOCYTES RELATIVE PERCENT (BEAKER) (test 12 % ljtg=190) MONOCYTES RELATIVE PERCENT (BEAKER) (test 10 % gqqs=108) EOSINOPHILS RELATIVE PERCENT (BEAKER) (test 2 % pgvn=874) BASOPHILS RELATIVE PERCENT (BEAKER) (test 0 % yvlu=737) NEUTROPHILS ABSOLUTE COUNT (BEAKER) (test 6.55 K/ L 1.56-6.13 ssgv=156) LYMPHOCYTES ABSOLUTE COUNT (BEAKER) (test 1.08 K/ L 1.18-3.74 opzn=299) MONOCYTES ABSOLUTE COUNT (BEAKER) (test 0.89 K/ L 0.24-0.36 unmo=521) EOSINOPHILS ABSOLUTE COUNT (BEAKER) (test 0.16 K/ L 0.04-0.36 kpaz=484) BASOPHILS ABSOLUTE COUNT (BEAKER) (test 0.03 K/ L 0.01-0.08 mxnx=330) IMMATURE GRANULOCYTES-RELATIVE PERCENT (BEAKER) 1 % 0-1 (test vbiz=1687) POCT-GLUCOSE [id number] 21:47:00 Test Item Value Reference Range Comments POC-GLUCOSE METER (BEAKER) 184 mg/dL 70-110 TESTED AT [address] (test ptbu=0202) [facility] [address] POCT-GLUCOSE [id number] 17:15:00 Test Item Value Reference Range Comments POC-GLUCOSE METER (BEAKER) 120 mg/dL 70-110 TESTED AT [address] (test gzlv=7248) [facility] [address] POCT-GLUCOSE [id number] 12:00:00 Test Item Value Reference Range Comments POC-GLUCOSE METER (BEAKER) 226 mg/dL 70-[address] [facility] [address] [facility] (test obbt=8310) [facility] [address] POCT-GLUCOSE [id number] 07:45:00 Test Item Value Reference Range Comments POC-GLUCOSE METER (BEAKER) 192 mg/dL 70-[address] [facility] [address] [facility] (test dder=2130) [facility] [address] RAD, CHEST, 1 VIEW, NON [id number] 07:45:00Reason for exam:->SOBShould this be performed at the bedside?->YesFINAL REPORT RAD , CHEST, 1 VIEW, NON DEPT INDICATION: SOB COMPARISON: Prior days exam FINDINGS: Portable frontal view of the chest. IMPRESSION: Support Lines: None. Lungs and pleura: No significant interval change in the appearance of the interspaces. Subsegmental atelectasisversus trace bilateral effusions. No pneumothorax.Heart and mediastinum: Stable contours. Additionalfindings: None. Signed: JR Mary, [facility] Verified Date/Time: 08/05/2018 07:45: 53 Reading Location: [address] Neuro Reading Room [id number] 06:25:00 Test Item Value Reference Range Comments MAGNESIUM (BEAKER) (test hjuw=210) 1.8 mg/dL 1.6-2.6 BASIC METABOLIC [id number] 06:25:00 Test Item Value Reference Range Comments SODIUM (BEAKER) (test 138 meq/L 136-145 fdmu=655) POTASSIUM (BEAKER) (test 3.9 meq/L 3.5-5.1 zcho=487) CHLORIDE (BEAKER) (test 107 meq/L 98-107 kkxj=194) CO2 (BEAKER) (test 23 meq/L 22-29 xyiz=826) BLOOD UREA NITROGEN 53 mg/dL 7-21 (BEAKER) (test mbhm=176) CREATININE (BEAKER) (test 2.79 mg/dL 0.57-1.25 aoka=089) GLUCOSE RANDOM (BEAKER) 134 mg/dL 70-105 (test xuoh=289) CALCIUM (BEAKER) (test 8.3 mg/dL 8.4-10.2 hagw=759) EGFR (BEAKER) (test 16 mL/min/1.73 sq m ESTIMATED GFR IS NOT elpe=7687) ACCURATE CREATININE CLEARANCE IN PREDICTING GLOMERULAR FILTRATION RATE. ESTIMATED GFR IS NOT APPLICABLE FOR DIALYSIS PATIENTS. CBC W/PLT COUNT & AUTO [id number] 05:59:00 Test Item Value Reference Range Comments WHITE BLOOD CELL COUNT (BEAKER) (test oggy=895) 8.1 K/ L 3.5-10.5 RED BLOOD CELL COUNT (BEAKER) (test cyiv=598) 3.09 M/ L 3.93-5.22 HEMOGLOBIN (BEAKER) (test vowu=303) 9.5 GM/DL 11.2-15.7 HEMATOCRIT (BEAKER) (test grzs=377) 30.1 % 34.1-44.9 MEAN CORPUSCULAR VOLUME (BEAKER) (test mlqu=918) 97.4 fL 79.4-94.8 MEAN CORPUSCULAR HEMOGLOBIN (BEAKER) (test 30.7 pg 25.6-32.2 gjku=732) MEAN CORPUSCULAR HEMOGLOBIN CONC (BEAKER) (test 31.6 GM/DL 32.2-35.5 omlw=565) RED CELL DISTRIBUTION WIDTH (BEAKER) (test 13.5 % 11.7-14.4 btwp=184) PLATELET COUNT (BEAKER) (test wkik=177) 172 K/CU MM 150-450 MEAN PLATELET VOLUME (BEAKER) (test gfos=046) 10.1 fL 9.4-12.3 NUCLEATED RED BLOOD CELLS (BEAKER) (test 0 /100 WBC 0-0 opgb=413) NEUTROPHILS RELATIVE PERCENT (BEAKER) (test 75 % ufot=516) LYMPHOCYTES RELATIVE PERCENT (BEAKER) (test 12 % ptdt=440) MONOCYTES RELATIVE PERCENT (BEAKER) (test 11 % kbee=585) EOSINOPHILS RELATIVE PERCENT (BEAKER) (test 2 % lgrx=305) BASOPHILS RELATIVE PERCENT (BEAKER) (test 0 % kjzh=977) NEUTROPHILS ABSOLUTE COUNT (BEAKER) (test 6.06 K/ L 1.56-6.13 bejb=495) LYMPHOCYTES ABSOLUTE COUNT (BEAKER) (test 0.95 K/ L 1.18-3.74 srfm=638) MONOCYTES ABSOLUTE COUNT (BEAKER) (test 0.85 K/ L 0.24-0.36 zvsg=670) EOSINOPHILS ABSOLUTE COUNT (BEAKER) (test 0.13 K/ L 0.04-0.36 jylt=755) BASOPHILS ABSOLUTE COUNT (BEAKER) (test 0.03 K/ L 0.01-0.08 awqo=879) IMMATURE GRANULOCYTES-RELATIVE PERCENT (BEAKER) 1 % 0-1 (test tvyp=0674) POCT-GLUCOSE [id number] 22:07:00 Test Item Value Reference Range Comments POC-GLUCOSE METER (BEAKER) 183 mg/dL 70-110 TESTED AT [address] (test xbdp=1328) [place] [address] POCT-GLUCOSE [id number] 18:23:00 Test Item Value Reference Range Comments POC-GLUCOSE METER (BEAKER) 174 mg/dL 70-110 TESTED AT [address] (test zvcl=4975) [place] [address] C. DIFFICILE GDH [id number] 15:36:00 Test Item Value Reference Range Comments CDT TOXIN (test Negative Negative liwu=[id number]) CDT GDH ANTIGEN (test Positive Negative C. difficile present but toxin hmbb=[id number]) not detected. Indicates colonization with non-toxigenic strain [...] performance was done by the [facility] prior to clinical use.URINALYSIS W/ REFLEX URINE [id number] 15:18:00 Test Item Value Reference Range Comments COLOR (BEAKER) (test beug=779) Yellow CLARITY (BEAKER) (test jzas=978) Hazy SPECIFIC GRAVITY UA (BEAKER) (test jpsf=344) 1.017 1.001-1.035 PH UA (BEAKER) (test jksz=257) 5.5 5.0-8.0 PROTEIN UA (BEAKER) (test hjpi=555) 30 mg/dL Negative GLUCOSE UA (BEAKER) (test znfu=807) Negative Negative KETONES UA (BEAKER) (test cwxu=559) Negative Negative BILIRUBIN UA (BEAKER) (test aags=315) Negative Negative BLOOD UA (BEAKER) (test uryy=202) Trace Negative NITRITE UA (BEAKER) (test optd=279) Negative Negative LEUKOCYTE ESTERASE UA (BEAKER) (test bqbn=012) Large Negative UROBILINOGEN UA (BEAKER) (test oplv=564) 0.2 mg/dL 0.2-1.0 RBC UA (BEAKER) (test jfrj=053) 0 /HPF WBC UA (BEAKER) (test bxku=690) 190 /HPF BACTERIA (BEAKER) (test enbp=061) Many MUCUS (BEAKER) (test akxj=4134) Rare SQUAMOUS EPITHELIAL (BEAKER) (test xczb=556) 1 /HPF HYALINE CASTS (BEAKER) (test dfit=427) 4 /LPF SOURCE(BEAKER) (test mkoe=7176) POCT-GLUCOSE [id number] 13:03:00 Test Item Value Reference Range Comments POC-GLUCOSE METER (BEAKER) 213 mg/dL 70-110 TESTED AT [address] (test fxxs=5800) [place] [address] OCCULT BLOOD, [id number] 11:58:00 Test Item Value Reference Range Comments FECAL OCCULT BLOOD (BEAKER) (test vjtk=482) Positive Negative POCT-GLUCOSE [id number] 08:00:00 Test Item Value Reference Range Comments POC-GLUCOSE METER (BEAKER) 127 mg/dL 70-110 TESTED AT [address] (test kood=5824) [place] [address] TROPONIN [id number] 07:07:00 Test Item Value Reference Range Comments TROPONIN I (BEAKER) (test bfao=133) 44.85 ng/mL 0.00-0.03 Troponin I (TnI) levels [...] and persistent tachyarrhythmia.RAD, CHEST, 1 VIEW, NON [id number] 07:00:00Reason for exam:->SOBShould this be performed at [...] Verified Date/Time: 08/04/2018 07:00: 06 Reading Location: [address] Neuro Reading Room COMPREHENSIVE METABOLIC [id number] 06:56:00 Test Item Value Reference Range Comments TOTAL PROTEIN (BEAKER) 5.7 gm/dL 6.0-8.3 (test eups=391) ALBUMIN (BEAKER) (test 3.2 g/dL 3.5-5.0 gyoi=5264) ALKALINE PHOSPHATASE 55 U/L 40-150 (BEAKER) (test zxor=169) BILIRUBIN TOTAL (BEAKER) 0.5 mg/dL 0.2-1.2 (test zbtc=361) SODIUM (BEAKER) (test 138 meq/L 136-145 hafb=084) POTASSIUM (BEAKER) (test 3.7 meq/L 3.5-5.1 cgga=675) CHLORIDE (BEAKER) (test 107 meq/L 98-107 dzuv=821) CO2 (BEAKER) (test 24 meq/L 22-29 gmxx=237) BLOOD UREA NITROGEN 61 mg/dL 7-21 (BEAKER) (test hzwa=025) CREATININE (BEAKER) (test 2.88 mg/dL 0.57-1.25 asgx=377) GLUCOSE RANDOM (BEAKER) 122 mg/dL 70-105 (test dfpj=698) CALCIUM (BEAKER) (test 8.1 mg/dL 8.4-10.2 cmfd=596) AST (SGOT) (BEAKER) (test 71 U/L 5-34 jxib=079) ALT (SGPT) (BEAKER) (test 23 U/L 6-55 gjqr=605) EGFR (BEAKER) (test 16 mL/min/1.73 sq m ESTIMATED GFR IS NOT amwz=5805) ACCURATE CREATININE CLEARANCE IN PREDICTING GLOMERULAR FILTRATION RATE. ESTIMATED GFR IS NOT APPLICABLE FOR DIALYSIS PATIENTS. [id number] 06:55:00 Test Item Value Reference Range Comments PHOSPHORUS (BEAKER) (test iygc=665) 2.8 mg/dL 2.3-4.7 [id number] 06:55:00 Test Item Value Reference Range Comments MAGNESIUM (BEAKER) (test smce=068) 1.9 mg/dL 1.6-2.6 CBC W/PLT COUNT & AUTO [id number] 06:12:00 Test Item Value Reference Range Comments WHITE BLOOD CELL COUNT (BEAKER) (test kdzv=755) 10.1 K/ L 3.5-10.5 RED BLOOD CELL COUNT (BEAKER) (test jdxd=605) 3.03 M/ L 3.93-5.22 HEMOGLOBIN (BEAKER) (test ugyn=314) 9.3 GM/DL 11.2-15.7 HEMATOCRIT (BEAKER) (test vlih=253) 28.5 % 34.1-44.9 MEAN CORPUSCULAR VOLUME (BEAKER) (test jbxv=124) 94.1 fL 79.4-94.8 MEAN CORPUSCULAR HEMOGLOBIN (BEAKER) (test 30.7 pg 25.6-32.2 vovc=710) MEAN CORPUSCULAR HEMOGLOBIN CONC (BEAKER) (test 32.6 GM/DL 32.2-35.5 bxrv=515) RED CELL DISTRIBUTION WIDTH (BEAKER) (test 13.4 % 11.7-14.4 exrz=932) PLATELET COUNT (BEAKER) (test clmi=368) 151 K/CU MM 150-450 MEAN PLATELET VOLUME (BEAKER) (test tdjw=536) 10.5 fL 9.4-12.3 NUCLEATED RED BLOOD CELLS (BEAKER) (test 0 /100 WBC 0-0 vkte=606) NEUTROPHILS RELATIVE PERCENT (BEAKER) (test 77 % wmcv=714) LYMPHOCYTES RELATIVE PERCENT (BEAKER) (test 11 % pxss=082) MONOCYTES RELATIVE PERCENT (BEAKER) (test 11 % vjhd=122) EOSINOPHILS RELATIVE PERCENT (BEAKER) (test 1 % ygnv=168) BASOPHILS RELATIVE PERCENT (BEAKER) (test 0 % hgie=391) NEUTROPHILS ABSOLUTE COUNT (BEAKER) (test 7.78 K/ L 1.56-6.13 fwxv=094) LYMPHOCYTES ABSOLUTE COUNT (BEAKER) (test 1.08 K/ L 1.18-3.74 dwfo=250) MONOCYTES ABSOLUTE COUNT (BEAKER) (test 1.09 K/ L 0.24-0.36 ogma=951) EOSINOPHILS ABSOLUTE COUNT (BEAKER) (test 0.07 K/ L 0.04-0.36 cygu=199) BASOPHILS ABSOLUTE COUNT (BEAKER) (test 0.02 K/ L 0.01-0.08 jqee=812) IMMATURE GRANULOCYTES-RELATIVE PERCENT (BEAKER) 1 % 0-1 (test cgdz=4567) CALCIUM, [id number] 05:58:00 Test Item Value Reference Range Comments CALCIUM IONIZED (BEAKER) (test ldzb=115) 1.11 mmol/L 1.12-1.27 PH, BLOOD (BEAKER) (test vuzu=2318) 7.38 POCT-GLUCOSE [id number] 22:08:00 Test Item Value Reference Range Comments POC-GLUCOSE METER (BEAKER) 163 mg/dL 70-110 TESTED AT [address] (test abpn=1742) [place] [address] POCT-GLUCOSE [id number] 18:05:00 Test Item Value Reference Range Comments POC-GLUCOSE METER (BEAKER) 215 mg/dL 70-110 TESTED AT [address] (test hnzw=2223) [place] [id number] POCT-GLUCOSE [id number] 12:33:00 Test Item Value Reference Range Comments POC-GLUCOSE METER (BEAKER) 287 mg/dL 70-110 TESTED AT [address] (test zhgt=1362) [place] [address] TROPONIN [id number] 10:28:00 Test Item Value Reference Range Comments TROPONIN I (BEAKER) (test ncii=280) 56.87 ng/mL 0.00-0.03 Troponin I (TnI) levels [...] Range Comments CREATINE KINASE TOTAL (BEAKER) (test ogmq=117) 601 U/L 29-200 RAD, CHEST, 1 VIEW, NON [id number] 08:51:00Reason for exam:->SOBShould this be performed at [...] MDReport Verified Date/Time: 08/03/2018 08:51:22 Reading Location: [facility] Radiology Reading Room [id number] 03:08:00 Test Item Value Reference Range Comments FERRITIN (BEAKER) (test xfng=086) 207 ng/mL 5-275 VITAMIN B12 AND [id number] 03:08:00 Test Item Value Reference Range Comments VITAMIN B12 (BEAKER) (test qwas=924) 212 pg/mL 213-816 FOLATE (BEAKER) (test ahoa=133) 15.1 ng/mL >=7.0 COMPREHENSIVE METABOLIC [id number] 02:38:00 Test Item Value Reference Range Comments TOTAL PROTEIN (BEAKER) 5.7 gm/dL 6.0-8.3 (test dolb=623) ALBUMIN (BEAKER) (test 3.2 g/dL 3.5-5.0 xove=6956) ALKALINE PHOSPHATASE 55 U/L 40-150 (BEAKER) (test wqff=943) BILIRUBIN TOTAL (BEAKER) 0.5 mg/dL 0.2-1.2 (test dehf=243) SODIUM (BEAKER) (test 139 meq/L 136-145 vust=392) POTASSIUM (BEAKER) (test 4.6 meq/L 3.5-5.1 ggbk=364) CHLORIDE (BEAKER) (test 107 meq/L 98-107 tvow=682) CO2 (BEAKER) (test 24 meq/L 22-29 rczr=586) BLOOD UREA NITROGEN 63 mg/dL 7-21 (BEAKER) (test qfxo=763) CREATININE (BEAKER) (test 2.96 mg/dL 0.57-1.25 nlcj=466) GLUCOSE RANDOM (BEAKER) 205 mg/dL 70-105 (test vcqq=176) CALCIUM (BEAKER) (test 8.7 mg/dL 8.4-10.2 plld=575) AST (SGOT) (BEAKER) (test 138 U/L 5-34 ousg=682) ALT (SGPT) (BEAKER) (test 28 U/L 6-55 rbee=694) EGFR (BEAKER) (test 15 mL/min/1.73 sq m ESTIMATED GFR IS NOT jgtn=9035) ACCURATE CREATININE CLEARANCE IN PREDICTING GLOMERULAR FILTRATION RATE. ESTIMATED GFR IS NOT APPLICABLE FOR DIALYSIS PATIENTS. [id number] 02:34:00 Test Item Value Reference Range Comments PHOSPHORUS (BEAKER) (test nrac=274) 4.7 mg/dL 2.3-4.7 [id number] 02:34:00 Test Item Value Reference Range Comments MAGNESIUM (BEAKER) (test egab=061) 2.0 mg/dL 1.6-2.6 IRON, TIBC, % SAT. (WITHOUT FERRITIN)2018-08-03 02:34:00 Test Item Value Reference Range Comments IRON (BEAKER) (test qzoh=728) 27.0 ug/dL 40.0-160.0 TOTAL IRON BINDING CAPACITY (BEAKER) (test 221 ug/dL 250-450 ykez=165) IRON % SATURATION (2) (BEAKER) (test veib=6956) 12 % 20-55 CALCIUM, [id number] 02:26:00 Test Item Value Reference Range Comments CALCIUM IONIZED (BEAKER) (test vhae=706) 1.12 mmol/L 1.12-1.27 PH, BLOOD (BEAKER) (test ucvu=1261) 7.27 CBC W/PLT COUNT & AUTO [id number] 02:20:00 Test Item Value Reference Range Comments WHITE BLOOD CELL COUNT (BEAKER) (test kzad=082) 12.5 K/ L 3.5-10.5 RED BLOOD CELL COUNT (BEAKER) (test lzoh=932) 3.39 M/ L 3.93-5.22 HEMOGLOBIN (BEAKER) (test kqpw=130) 10.4 GM/DL 11.2-15.7 HEMATOCRIT (BEAKER) (test udhs=288) 32.5 % 34.1-44.9 MEAN CORPUSCULAR VOLUME (BEAKER) (test vblu=112) 95.9 fL 79.4-94.8 MEAN CORPUSCULAR HEMOGLOBIN (BEAKER) (test 30.7 pg 25.6-32.2 dwly=468) MEAN CORPUSCULAR HEMOGLOBIN CONC (BEAKER) (test 32.0 GM/DL 32.2-35.5 qazd=286) RED CELL DISTRIBUTION WIDTH (BEAKER) (test 13.6 % 11.7-14.4 jxed=174) PLATELET COUNT (BEAKER) (test xoav=899) 155 K/CU MM 150-450 MEAN PLATELET VOLUME (BEAKER) (test pfvu=816) 10.4 fL 9.4-12.3 NUCLEATED RED BLOOD CELLS (BEAKER) (test 0 /100 WBC 0-0 sspn=602) NEUTROPHILS RELATIVE PERCENT (BEAKER) (test 83 % zhuy=030) LYMPHOCYTES RELATIVE PERCENT (BEAKER) (test 8 % inun=942) MONOCYTES RELATIVE PERCENT (BEAKER) (test 9 % cdts=311) EOSINOPHILS RELATIVE PERCENT (BEAKER) (test 0 % hxtv=308) BASOPHILS RELATIVE PERCENT (BEAKER) (test 0 % spod=972) NEUTROPHILS ABSOLUTE COUNT (BEAKER) (test 10.32 K/ L 1.56-6.13 trva=080) LYMPHOCYTES ABSOLUTE COUNT (BEAKER) (test 1.01 K/ L 1.18-3.74 mpdd=780) MONOCYTES ABSOLUTE COUNT (BEAKER) (test 1.07 K/ L 0.24-0.36 itko=591) EOSINOPHILS ABSOLUTE COUNT (BEAKER) (test 0.01 K/ L 0.04-0.36 nmpc=066) BASOPHILS ABSOLUTE COUNT (BEAKER) (test 0.03 K/ L 0.01-0.08 brij=556) IMMATURE GRANULOCYTES-RELATIVE PERCENT (BEAKER) 1 % 0-1 (test tnvc=0571) RETICULOCYTE [id number] 02:16:00 Test Item Value Reference Range Comments RETICULOCYTE COUNT PCT ([facility]) (test zpkj=786) 2.7 % 0.5-1.7 POCT-GLUCOSE [id number] 01:12:00 Test Item Value Reference Range Comments POC-GLUCOSE METER (AKER) 239 mg/dL 70-110 TESTED AT [address] (test pgga=8004) [place] [address] POCT-GLUCOSE [id number] 20:38:00 Test Item Value Reference Range Comments POC-GLUCOSE METER (BEAKER) 207 mg/dL 70-110 TESTED AT [address] (test bphz=6894) [place] [address] POCT-GLUCOSE [id number] 16:39:00 Test Item Value Reference Range Comments POC-GLUCOSE METER (AKER) 216 mg/dL 70-110 TESTED AT [address] (test eeww=4180) [place] [address] [id number] 12:20:00 Test Item Value Reference Range Comments PARTIAL THROMBOPLASTIN TIME (AKER) (test 36.6 seconds 22.5-36.0 jwue=710) 4 hours after the start of continuous infusion and 4 hours after any rate changePOCT-GLUCOSE [id number] 12:03:00 Test Item Value Reference Range Comments POC-GLUCOSE METER (BEAKER) 206 mg/dL 70-110 TESTED AT [address] (test tzub=0739) [place] [address] POCT-GLUCOSE [id number] 12:03:00 Test Item Value Reference Range Comments POC-GLUCOSE METER (BEAKER) 193 mg/dL 70-[address] [facility] [address] [facility] (test vexl=6089) [facility] [address] POCT-GLUCOSE [id number] 12:02:00 Test Item Value Reference Range Comments POC-GLUCOSE METER (BEAKER) 234 mg/dL 70-[address] [facility] [address] [facility] (test gxxf=3117) [facility] [address] POCT-GLUCOSE [id number] 12:02:00 Test Item Value Reference Range Comments POC-GLUCOSE METER (BEAKER) 211 mg/dL 70-110 TESTED AT [place] [id number] [facility] (test suwz=7566) [facility] [address] U/S, RENAL, [id number] 08:45:00Reason for exam:->CKDFINAL REPORT TECHNIQUE: Grayscale ultrasound [...] Verified Date/Time: 08/02/2018 08: 45:50 Reading Location: [address] Radiology Reading Room Electronically signedby: ROB NAVARRO MD on 08/02/2018 08:45 AMPOCT-GLUCOSE [id number] 08:25:00 Test Item Value Reference Range Comments POC-GLUCOSE METER (BEAKER) 237 mg/dL 70-110 TESTED AT [address] (test lipu=7835) [facility] [address] [id number] 08:19:00 Test Item Value Reference Range Comments PARTIAL THROMBOPLASTIN TIME (BEAKER) (test 38.2 seconds 22.5-36.0 xakl=445) 4 hours after the start of continuous infusion and 4 hours after any rate changePOCT-GLUCOSE [id number] 07:14:00 Test Item Value Reference Range Comments POC-GLUCOSE METER (BEAKER) 246 mg/dL 70-110 TESTED AT [address] (test tkhm=0960) [facility] [address] COMPREHENSIVE METABOLIC [id number] 04:58:00 Test Item Value Reference Range Comments TOTAL PROTEIN (BEAKER) 5.5 gm/dL 6.0-8.3 Specimen slightly (test tsek=429) hemolyzed ALBUMIN (BEAKER) (test 3.1 g/dL 3.5-5.0 Specimen slightly iulb=7617) hemolyzed ALKALINE PHOSPHATASE 54 U/L 40-150 (BEAKER) (test thts=854) BILIRUBIN TOTAL (BEAKER) 0.7 mg/dL 0.2-1.2 Specimen slightly (test cadr=643) hemolyzed SODIUM (BEAKER) (test 135 meq/L 136-145 vzgn=808) POTASSIUM (BEAKER) (test 4.8 meq/L 3.5-5.1 Specimen slightly whhv=813) hemolyzed CHLORIDE (BEAKER) (test 108 meq/L 98-107 oaxr=519) CO2 (BEAKER) (test 18 meq/L 22-29 kknm=547) BLOOD UREA NITROGEN 57 mg/dL 7-21 (BEAKER) (test stii=164) CREATININE (BEAKER) (test 2.27 mg/dL 0.57-1.25 Specimen slightly lgxt=630) hemolyzed GLUCOSE RANDOM (BEAKER) 289 mg/dL 70-105 (test yekv=345) CALCIUM (BEAKER) (test 8.6 mg/dL 8.4-10.2 ainf=229) AST (SGOT) (BEAKER) (test 94 U/L 5-34 Specimen slightly ybwy=216) hemolyzed ALT (SGPT) (BEAKER) (test 20 U/L 6-55 Specimen slightly gybi=784) hemolyzed EGFR (BEAKER) (test 21 mL/min/1.73 sq m ESTIMATED GFR IS NOT jnwx=5274) ACCURATE CREATININE CLEARANCE IN PREDICTING GLOMERULAR FILTRATION RATE. ESTIMATED GFR IS NOT APPLICABLE FOR DIALYSIS PATIENTS. [id number] 04:52:00 Test Item Value Reference Range Comments PARTIAL THROMBOPLASTIN TIME (BEAKER) (test 37.5 seconds 22.5-36.0 rncu=549) 4 hours after the start of continuous infusion and 4 hours after any rate changeRAD, CHEST, 1 VIEW, NON [id number] 04:44:00Reason for exam:-> impella positionShould this be [...] NATRIURETIC PEPTIDE (BEAKER) (test 1452 pg/mL 0-100 sbhl=982) [id number] 04:40:00 Test Item Value Reference Range Comments MAGNESIUM (BEAKER) (test 2.0 mg/dL 1.6-2.6 Specimen slightly hemolyzed xwwv=721) [id number] 04:40:00 Test Item Value Reference Range Comments PHOSPHORUS (BEAKER) (test 4.7 mg/dL 2.3-4.7 Specimen slightly hemolyzed wefm=106) URIC [id number] 04:40:00 Test Item Value Reference Range Comments URIC ACID (BEAKER) (test 9.1 mg/dL 2.6-7.2 Specimen slightly hemolyzed rumd=025) LACTIC ACID, [id number] 04:31:00 Test Item Value Reference Range Comments LACTATE BLOOD ARTERIAL (2) 0.9 mmol/L 0.5-2.2 Specimen slightly hemolyzed (BEAKER) (test kjrm=9369) BLOOD GAS, [id number] 04:25:00 Test Item Value Reference Range Comments PH ARTERIAL (BEAKER) (test spxn=140) 7.31 7.35-7.45 PCO2 ARTERIAL (BEAKER) (test zojg=133) 40 mmHg 35-45 PO2 ARTERIAL (BEAKER) (test fnme=024) 90 mmHg 80-90 O2 SATURATION ARTERIAL (BEAKER) (test qdga=942) 96.3 % 96.0-97.0 HCO3 ARTERIAL (BEAKER) (test pbwh=832) 20 mmol/L 21-29 BASE EXCESS ARTERIAL (BEAKER) (test xhdj=560) -6.1 mmol/L -2.0-3.0 PATIENT TEMPERATURE (BEAKER) (test zlws=8988) 36.7 C FIO2 (BEAKER) (test klnn=4355) 36.0 % GLUCOSE-STAT [id number] 04:25:00 Test Item Value Reference Range Comments GLUCOSE RANDOM (BEAKER) (test fyqa=365) 272 mg/dL 70-110 HGB/HCT (H&H) - STAT [id number] 04:25:00 Test Item Value Reference Range Comments HEMOGLOBIN (BEAKER) (test whmk=581) 10.9 g/dL 12.0-15.0 HEMATOCRIT (BEAKER) (test hgye=343) 32.0 % 36.0-45.0 CBC W/PLT COUNT & AUTO [id number] 04:24:00 Test Item Value Reference Range Comments WHITE BLOOD CELL COUNT (BEAKER) (test cqem=861) 14.8 K/ L 3.5-10.5 RED BLOOD CELL COUNT (BEAKER) (test gcjn=028) 3.43 M/ L 3.93-5.22 HEMOGLOBIN (BEAKER) (test pycy=980) 10.3 GM/DL 11.2-15.7 HEMATOCRIT (BEAKER) (test gmuc=652) 32.3 % 34.1-44.9 MEAN CORPUSCULAR VOLUME (BEAKER) (test vkvi=362) 94.2 fL 79.4-94.8 MEAN CORPUSCULAR HEMOGLOBIN (BEAKER) (test 30.0 pg 25.6-32.2 lgii=711) MEAN CORPUSCULAR HEMOGLOBIN CONC (BEAKER) (test 31.9 GM/DL 32.2-35.5 maff=245) RED CELL DISTRIBUTION WIDTH (BEAKER) (test 13.2 % 11.7-14.4 bvcw=748) PLATELET COUNT (BEAKER) (test htgy=521) 171 K/CU MM 150-450 MEAN PLATELET VOLUME (BEAKER) (test rcvx=954) 10.1 fL 9.4-12.3 NUCLEATED RED BLOOD CELLS (BEAKER) (test 0 /100 WBC 0-0 kugi=928) NEUTROPHILS RELATIVE PERCENT (BEAKER) (test 84 % jrix=267) LYMPHOCYTES RELATIVE PERCENT (BEAKER) (test 9 % gqlf=458) MONOCYTES RELATIVE PERCENT (BEAKER) (test 7 % xdrp=821) EOSINOPHILS RELATIVE PERCENT (BEAKER) (test 0 % acxe=638) BASOPHILS RELATIVE PERCENT (BEAKER) (test 0 % vrfl=723) NEUTROPHILS ABSOLUTE COUNT (BEAKER) (test 12.38 K/ L 1.56-6.13 zhoz=310) LYMPHOCYTES ABSOLUTE COUNT (BEAKER) (test 1.30 K/ L 1.18-3.74 sobh=775) MONOCYTES ABSOLUTE COUNT (BEAKER) (test 1.04 K/ L 0.24-0.36 tsil=132) EOSINOPHILS ABSOLUTE COUNT (BEAKER) (test 0.00 K/ L 0.04-0.36 zlro=088) BASOPHILS ABSOLUTE COUNT (BEAKER) (test 0.02 K/ L 0.01-0.08 rbvm=284) IMMATURE GRANULOCYTES-RELATIVE PERCENT (BEAKER) 1 % 0-1 (test gkyh=1811) CALCIUM, [id number] 04:22:00 Test Item Value Reference Range Comments CALCIUM IONIZED (BEAKER) (test xuoc=903) 1.20 mmol/L 1.12-1.27 PH, BLOOD (BEAKER) (test nazy=2386) 7.31 SODIUM NA-STAT [id number] 04:21:00 Test Item Value Reference Range Comments SODIUM (BEAKER) (test qadz=594) 136 meq/L 135-148 POTASSIUM-STAT [id number] 04:21:00 Test Item Value Reference Range Comments POTASSIUM (BEAKER) (test kukg=816) 4.6 meq/L 3.6-5.5 LACTIC ACID, [id number] 00:13:00 Test Item Value Reference Range Comments LACTATE BLOOD ARTERIAL (2) (BEAKER) (test 0.7 mmol/L 0.5-2.2 onrb=0608) SODIUM NA-STAT [id number] 23:59:00 Test Item Value Reference Range Comments SODIUM (BEAKER) (test pfrm=985) 136 meq/L 135-148 POTASSIUM-STAT [id number] 23:59:00 Test Item Value Reference Range Comments POTASSIUM (BEAKER) (test ukva=344) 4.8 meq/L 3.6-5.5 BLOOD GAS, [id number] 23:59:00 Test Item Value Reference Range Comments PH ARTERIAL (BEAKER) (test gosk=061) 7.31 7.35-7.45 PCO2 ARTERIAL (BEAKER) (test rhfo=941) 42 mmHg 35-45 PO2 ARTERIAL (BEAKER) (test hjoj=556) 78 mmHg 80-90 O2 SATURATION ARTERIAL (BEAKER) (test awib=747) 94.7 % 96.0-97.0 HCO3 ARTERIAL (BEAKER) (test hmqt=906) 21 mmol/L 21-29 BASE EXCESS ARTERIAL (BEAKER) (test axja=366) -5.2 mmol/L -2.0-3.0 PATIENT TEMPERATURE (BEAKER) (test falt=6553) 36.7 C FIO2 (BEAKER) (test kuyb=6161) 36.0 % GLUCOSE-STAT [id number] 23:59:00 Test Item Value Reference Range Comments GLUCOSE RANDOM (BEAKER) (test tsgh=626) 275 mg/dL 70-110 HGB/HCT (H&H) - STAT [id number] 23:59:00 Test Item Value Reference Range Comments HEMOGLOBIN (BEAKER) (test obqn=020) 11.3 g/dL 12.0-15.0 HEMATOCRIT (BEAKER) (test rupy=046) 33.0 % 36.0-45.0 [id number] 21:53:00 Test Item Value Reference Range Comments PARTIAL THROMBOPLASTIN TIME (BEAKER) (test 63.4 seconds 22.5-36.0 bcdd=063) 4 hours after the start of continuous infusion and 4 hours after any rate changeCOMPREHENSIVE METABOLIC [id number] 19:43:00 Test Item Value Reference Range Comments TOTAL PROTEIN (BEAKER) 5.8 gm/dL 6.0-8.3 Specimen slightly (test tovs=182) hemolyzed ALBUMIN (BEAKER) (test 3.3 g/dL 3.5-5.0 Specimen slightly xjbs=4322) hemolyzed ALKALINE PHOSPHATASE 57 U/L 40-150 (BEAKER) (test thjx=186) BILIRUBIN TOTAL (BEAKER) 0.9 mg/dL 0.2-1.2 Specimen slightly (test ascs=350) hemolyzed SODIUM (BEAKER) (test 137 meq/L 136-145 msnc=760) POTASSIUM (BEAKER) (test 4.8 meq/L 3.5-5.1 Specimen slightly lrzy=353) hemolyzed CHLORIDE (BEAKER) (test 109 meq/L 98-107 zibw=300) CO2 (BEAKER) (test 20 meq/L 22-29 adgw=661) BLOOD UREA NITROGEN 56 mg/dL 7-21 (BEAKER) (test dcio=466) CREATININE (BEAKER) (test 2.26 mg/dL 0.57-1.25 Specimen slightly zabo=177) hemolyzed GLUCOSE RANDOM (BEAKER) 235 mg/dL 70-105 (test ryjs=015) CALCIUM (BEAKER) (test 9.2 mg/dL 8.4-10.2 lolj=349) AST (SGOT) (BEAKER) (test 27 U/L 5-34 Specimen slightly uhgq=977) hemolyzed ALT (SGPT) (BEAKER) (test 13 U/L 6-55 Specimen slightly ptsm=093) hemolyzed EGFR (BEAKER) (test 21 mL/min/1.73 sq m ESTIMATED GFR IS NOT jfms=5261) ACCURATE CREATININE CLEARANCE IN PREDICTING GLOMERULAR FILTRATION RATE. ESTIMATED GFR IS NOT APPLICABLE FOR DIALYSIS PATIENTS. Call k > 5, [id number] 19:41:00 Test Item Value Reference Range Comments SODIUM (BEAKER) (test yqmr=377) 137 meq/L 136-145 POTASSIUM (BEAKER) (test 4.8 meq/L 3.5-5.1 Specimen slightly hemolyzed rner=902) CHLORIDE (BEAKER) (test 109 meq/L 98-107 sqwx=811) CO2 (BEAKER) (test cppt=445) 20 meq/L - Call k > 5, [id number] 19:37:00 Test Item Value Reference Range Comments PROTIME (BEAKER) (test dizj=243) 33.9 seconds 11.9-14.2 INR (BEAKER) (test ifvs=476) 3.6 <=5.9 PARTIAL THROMBOPLASTIN TIME (BEAKER) (test 85.5 seconds 22.5-36.0 cxkv=963) Effective 07/18/2018: PT Reference Range ChangeNew: 11.9-14.2 Previous: 11.7- 14.7RECOMMENDED COUMADIN/WARFARIN INR THERAPY RANGESSTANDARD DOSE: 2.0-3.0 Includes: PROPHYLAXIS for venous thrombosis, systemic embolization; TREATMENT for venous thrombosis and/or pulmonary embolus.HIGH RISK: Target INR is2.5-3.5 for patients wiht mechanical heart valves.[id number] 19:36:00 Test Item Value Reference Range Comments FIBRINOGEN LEVEL (BEAKER) (test htos=035) 336 mg/dl 225-434 LACTIC ACID, [id number] 19:34:00 Test Item Value Reference Range Comments LACTATE BLOOD ARTERIAL (2) 1.3 mmol/L 0.5-2.2 Specimen slightly hemolyzed (BEAKER) (test hkkl=8517) CBC (HEMOGRAM ONLY)2018-08-01 19:23:00 Test Item Value Reference Range Comments WHITE BLOOD CELL COUNT (BEAKER) (test imoo=651) 14.1 K/ L 3.5-10.5 RED BLOOD CELL COUNT (BEAKER) (test lrqg=663) 3.68 M/ L 3.93-5.22 HEMOGLOBIN (BEAKER) (test teyd=279) 11.3 GM/DL 11.2-15.7 HEMATOCRIT (BEAKER) (test bpee=889) 34.6 % 34.1-44.9 MEAN CORPUSCULAR VOLUME (BEAKER) (test bqrf=928) 94.0 fL 79.4-94.8 MEAN CORPUSCULAR HEMOGLOBIN (BEAKER) (test 30.7 pg 25.6-32.2 rcos=460) MEAN CORPUSCULAR HEMOGLOBIN CONC (BEAKER) (test 32.7 GM/DL 32.2-35.5 kcbi=266) RED CELL DISTRIBUTION WIDTH (BEAKER) (test 13.1 % 11.7-14.4 lmey=283) PLATELET COUNT (BEAKER) (test kluk=218) 207 K/CU MM 150-450 MEAN PLATELET VOLUME (BEAKER) (test raej=282) 9.9 fL 9.4-12.3 NUCLEATED RED BLOOD CELLS (BEAKER) (test 0 /100 WBC 0-0 wmgw=075) BLOOD GAS, [id number] 19:16:00 Test Item Value Reference Range Comments PH ARTERIAL (BEAKER) (test pbdk=236) 7.35 7.35-7.45 PCO2 ARTERIAL (BEAKER) (test npxy=695) 39 mmHg 35-45 PO2 ARTERIAL (BEAKER) (test lewr=609) 50 mmHg 80-90 O2 SATURATION ARTERIAL (BEAKER) (test kgyk=529) 84.5 % 96.0-97.0 HCO3 ARTERIAL (BEAKER) (test cmis=351) 21 mmol/L 21-29 BASE EXCESS ARTERIAL (BEAKER) (test psgf=716) -4.5 mmol/L -2.0-3.0 PATIENT TEMPERATURE (BEAKER) (test nviq=5596) 36.7 C FIO2 (BEAKER) (test ihay=7950) 36.0 % GLUCOSE-STAT [id number] 19:16:00 Test Item Value Reference Range Comments GLUCOSE RANDOM (BEAKER) (test lxwm=334) 231 mg/dL 70-110 HGB/HCT (H&H) - STAT [id number] 19:16:00 Test Item Value Reference Range Comments HEMOGLOBIN (BEAKER) (test kbrr=639) 11.5 g/dL 12.0-15.0 HEMATOCRIT (BEAKER) (test nhfk=651) 34.0 % 36.0-45.0 CALCIUM, [id number] 19:15:00 Test Item Value Reference Range Comments CALCIUM IONIZED (BEAKER) (test zhli=527) 1.26 mmol/L 1.12-1.27 PH, BLOOD (BEAKER) (test qirf=8864) 7.35 OXYGEN SATURATION, [id number] 19:14:00 Test Item Value Reference Range Comments O2 SATURATION (MEASURED) (BEAKER) (test ohmu=6855) 41.9 % SODIUM NA-STAT [id number] 19:14:00 Test Item Value Reference Range Comments SODIUM (BEAKER) (test prhp=907) 138 meq/L 135-148 POTASSIUM-STAT [id number] 19:14:00 Test Item Value Reference Range Comments POTASSIUM (BEAKER) (test odgc=186) 4.7 meq/L 3.6-5.5 [id number] 16:45:00 Test Item Value Reference Range Comments ACTIVATED CLOTTING TIME 389 sec TESTED AT [address] (BEAKER) (test zbbn=997) [facility] [address] HEMOGLOBIN AND [id number] 16:38:00 Test Item Value Reference Range Comments HEMOGLOBIN (BEAKER) (test viwb=527) 10.1 GM/DL 11.2-15.7 HEMATOCRIT (BEAKER) (test knhc=082) 31.6 % 34.1-44.9 PLATELET AGGREGATION: FUNCTION [id number] 16:05:00 Test Item Value Reference Range Comments WEAK ADP RESULT(BEAKER) (test 34 % 60-91 moqb=0707) PLATELET FUNCTION SCREEN 0-39% indicates marked platelet INTERP (BEAKER) (test dysfunction quca=2360) [id number] Talia Villarreal MD (BEAKER) (test lbjh=1499) (electronic signature) PLATELET COUNT AGG (BEAKER) 186 K/CU MM 150-450 (test pjkt=1322) Platelet Function Screen results may be falsely low with platelet counts<100, 000/cu mm.[id number] 15:02:00 Test Item Value Reference Range Comments ACTIVATED CLOTTING TIME [address] [facility] (BEAKER) (test isdw=663) [facility] [address] POCT-GLUCOSE [id number] 12:17:00 Test Item Value Reference Range Comments POC-GLUCOSE METER (BEAKER) 103 mg/dL 70-110 TESTED AT [address] (test lkvn=5050) [place] [address] POCT-GLUCOSE [id number] 08:18:00 Test Item Value Reference Range Comments POC-GLUCOSE METER (BEAKER) 388 mg/dL 70-110 TESTED AT [address] (test clem=9335) [place] [address] HEPATIC FUNCTION [id number] 08:09:00 Test Item Value Reference Range Comments TOTAL PROTEIN (BEAKER) (test 6.2 gm/dL 6.0-8.3 Specimen slightly hemolyzed mykk=699) ALBUMIN (BEAKER) (test 3.4 g/dL 3.5-5.0 Specimen slightly hemolyzed qedv=3838) BILIRUBIN TOTAL (BEAKER) (test 0.4 mg/dL 0.2-1.2 Specimen slightly hemolyzed tjxi=037) BILIRUBIN DIRECT (BEAKER) (test 0.1 mg/dL 0.1-0.5 Specimen slightly hemolyzed xcmz=228) ALKALINE PHOSPHATASE (BEAKER) 59 U/L 40-150 (test cafe=577) AST (SGOT) (BEAKER) (test 19 U/L 5-34 Specimen slightly hemolyzed nstz=407) ALT (SGPT) (BEAKER) (test 10 U/L 6-55 Specimen slightly hemolyzed eepv=451) TROPONIN [id number] 06:39:00 Test Item Value Reference Range Comments TROPONIN I (BEAKER) (test dwwe=129) 0.26 ng/mL 0.00-0.03 Troponin I (TnI) levels [...] acidosis, acute neurological disease, and persistent tachyarrhythmia.POCT-GLUCOSE [id number] 06:36:00 Test Item Value Reference Range Comments POC-GLUCOSE METER (BEAKER) 415 mg/dL 70-110 TESTED AT [address] (test lvwm=0773) [place] [address] BASIC METABOLIC [id number] 06:10:00 Test Item Value Reference Range Comments SODIUM (BEAKER) (test 135 meq/L 136-145 cxqz=514) POTASSIUM (BEAKER) (test 4.9 meq/L 3.5-5.1 Specimen slightly lrce=444) hemolyzed CHLORIDE (BEAKER) (test 104 meq/L 98-107 zgnl=832) CO2 (BEAKER) (test 21 meq/L 22-29 sqkt=947) BLOOD UREA NITROGEN 53 mg/dL 7-21 (BEAKER) (test octt=720) CREATININE (BEAKER) (test 2.28 mg/dL 0.57-1.25 Specimen slightly pmii=695) hemolyzed GLUCOSE RANDOM (BEAKER) 473 mg/dL 70-105 (test fnpn=290) CALCIUM (BEAKER) (test 8.7 mg/dL 8.4-10.2 rdcu=213) EGFR (BEAKER) (test 21 mL/min/1.73 sq m ESTIMATED GFR IS NOT cxxe=4098) ACCURATE CREATININE CLEARANCE IN PREDICTING GLOMERULAR FILTRATION RATE. ESTIMATED GFR IS NOT APPLICABLE FOR DIALYSIS PATIENTS. [id number] 06:03:00 Test Item Value Reference Range Comments MAGNESIUM (BEAKER) (test 2.2 mg/dL 1.6-2.6 Specimen slightly hemolyzed dpdj=532) THROMBIN [id number] 05:09:00 Test Item Value Reference Range Comments THROMBIN TIME (BEAKER) (test egga=203) 64.9 secs 13.8-20.0 Draw baseline aPTT prior to [id number] 05:08:00 Test Item Value Reference Range Comments PARTIAL THROMBOPLASTIN TIME (BEAKER) (test 43.1 seconds 22.5-36.0 lhde=061) Draw baseline aPTT prior to infusionPROTHROMBIN TIME/[id number] 05:07:00 Test Item Value Reference Range Comments PROTIME (BEAKER) (test jpww=228) 15.0 seconds 11.9-14.2 INR (BEAKER) (test ahdk=891) 1.2 <=5.9 Effective 07/18/2018: PT Reference Range ChangeNew: 11.9-14.2 Previous: 11.7- 14.7RECOMMENDED COUMADIN/WARFARIN INR THERAPY RANGESSTANDARD DOSE: 2.0-3.0 Includes: PROPHYLAXIS for venous thrombosis, systemic embolization; TREATMENT for venous thrombosis and/or pulmonary embolus.HIGH RISK: Target INR is2.5-3.5 for patients wiht mechanical heart valves.Draw baseline aPTT prior to infusionCBC W/PLT COUNT & AUTO [id number] 04:59:00 Test Item Value Reference Range Comments WHITE BLOOD CELL COUNT (BEAKER) (test llye=371) 7.0 K/ L 3.5-10.5 RED BLOOD CELL COUNT (BEAKER) (test gzoz=877) 3.82 M/ L 3.93-5.22 HEMOGLOBIN (BEAKER) (test pjjc=169) 11.7 GM/DL 11.2-15.7 HEMATOCRIT (BEAKER) (test jtel=020) 35.9 % 34.1-44.9 MEAN CORPUSCULAR VOLUME (BEAKER) (test lnom=987) 94.0 fL 79.4-94.8 MEAN CORPUSCULAR HEMOGLOBIN (BEAKER) (test 30.6 pg 25.6-32.2 cqjk=155) MEAN CORPUSCULAR HEMOGLOBIN CONC (BEAKER) (test 32.6 GM/DL 32.2-35.5 fjkr=482) RED CELL DISTRIBUTION WIDTH (BEAKER) (test 12.8 % 11.7-14.4 xwzt=361) PLATELET COUNT (BEAKER) (test pyqb=735) 225 K/CU MM 150-450 MEAN PLATELET VOLUME (BEAKER) (test ipmg=674) 10.5 fL 9.4-12.3 NUCLEATED RED BLOOD CELLS (BEAKER) (test 0 /100 WBC 0-0 daet=103) NEUTROPHILS RELATIVE PERCENT (BEAKER) (test 87 % quch=996) LYMPHOCYTES RELATIVE PERCENT (BEAKER) (test 10 % vzkk=116) MONOCYTES RELATIVE PERCENT (BEAKER) (test 2 % hvha=430) EOSINOPHILS RELATIVE PERCENT (BEAKER) (test 0 % tivg=045) BASOPHILS RELATIVE PERCENT (BEAKER) (test 0 % ewab=930) NEUTROPHILS ABSOLUTE COUNT (BEAKER) (test 6.10 K/ L 1.56-6.13 gmlc=885) LYMPHOCYTES ABSOLUTE COUNT (BEAKER) (test 0.72 K/ L 1.18-3.74 plhh=383) MONOCYTES ABSOLUTE COUNT (BEAKER) (test 0.14 K/ L 0.24-0.36 hgxi=034) EOSINOPHILS ABSOLUTE COUNT (BEAKER) (test 0.00 K/ L 0.04-0.36 twjf=258) BASOPHILS ABSOLUTE COUNT (BEAKER) (test 0.01 K/ L 0.01-0.08 dfuh=028) IMMATURE GRANULOCYTES-RELATIVE PERCENT (BEAKER) 1 % 0-1 (test sdjv=0701) RAD, CHEST, 1 VIEW, NON [id number] 04:33:00Reason for exam:->preopShould this be performed at the bedside?->YesFINAL REPORT RAD, CHEST, 1 VIEW, NON DEPT INDICATION: preop COMPARISON: Prior day's exam FINDINGS: Portable frontal view of the chest. IMPRESSION: Support Lines: Stable. Lungs and pleura: Unchanged airspace and pleural opacities. No pneumothorax.Heart and mediastinum: Stable contours. Additional findings: None. Signed: Desire Méndez Verified Date/Time: 08/01/2018 04:33:15 RAD , CHEST, 1 VIEW, NON [id number] 00:02:00Reason for exam:->Intraaortic balloon pump insertionShould this [...] MÉNDEZ MD on08/01/2018 12:02 AMTSH/FREE T4 IF [id number] 21:34:00 Test Item Value Reference Range Comments THYROID STIMULATING HORMONE (BEAKER) (test 0.99 uIU/mL 0.35-4.94 alvc=751) TROPONIN [id number] 21:26:00 Test Item Value Reference Range Comments TROPONIN I (BEAKER) (test xabu=202) 0.28 ng/mL 0.00-0.03 Troponin I (TnI) levels [...] NATRIURETIC PEPTIDE (BEAKER) (test 633 pg/mL 0-100 tppf=771) RAD, CHEST, 1 VIEW, NON [id number] 21:20:00Reason for exam:->unstable anginaShould this be performed at the bedside?->YesFINAL REPORT Portable chest. HISTORY: Unstable angina. COMPARISON STUDY: Noneavailable. FINDINGS: The cardiac size is enlarged. There are bilateral increased interstitial markings with some atelectasis or fibrosis in the lung bases. No pleural effusion or pneumothorax is seen. Degenerative changes and osteopenia are seen. IMPRESSION: Cardiomegaly with increased interstitial markings. Signed: Jonathan Galeana [facility] Verified Date/Time: 07/31/2018 21:20 :52 Reading Location: [place] [id number] Consult Reading Room [facility] [id number] 21:18:00 Test Item Value Reference Range Comments SODIUM (BEAKER) (test 137 meq/L 136-145 jlxt=606) POTASSIUM (BEAKER) (test 4.6 meq/L 3.5-5.1 pfnm=782) CHLORIDE (BEAKER) (test 104 meq/L 98-107 pgbk=362) CO2 (BEAKER) (test 25 meq/L - zgrj=309) BLOOD UREA NITROGEN 47 mg/dL 7-21 (BEAKER) (test hljx=299) CREATININE (BEAKER) (test 2.18 mg/dL 0.57-1.25 muhy=101) GLUCOSE RANDOM (BEAKER) 223 mg/dL 70-105 (test xzka=522) CALCIUM (BEAKER) (test 9.1 mg/dL 8.4-10.2 boas=377) EGFR (BEAKER) (test 22 mL/min/1.73 sq m ESTIMATED GFR IS NOT tame=4686) ACCURATE CREATININE CLEARANCE IN PREDICTING GLOMERULAR FILTRATION RATE. ESTIMATED GFR IS NOT APPLICABLE FOR DIALYSIS PATIENTS. HEPATIC FUNCTION [id number] 21:15:00 Test Item Value Reference Range Comments TOTAL PROTEIN (BEAKER) (test visz=082) 6.8 gm/dL 6.0-8.3 ALBUMIN (BEAKER) (test ogcs=3480) 3.8 g/dL 3.5-5.0 BILIRUBIN TOTAL (BEAKER) (test jybf=746) 0.6 mg/dL 0.2-1.2 BILIRUBIN DIRECT (BEAKER) (test nsdi=858) 0.3 mg/dL 0.1-0.5 ALKALINE PHOSPHATASE (BEAKER) (test mevr=808) 67 U/L 40-150 AST (SGOT) (BEAKER) (test hpvi=861) 14 U/L 5-34 ALT (SGPT) (BEAKER) (test chkl=162) 10 U/L 6-55 [id number] 20:57:00 Test Item Value Reference Range Comments PARTIAL THROMBOPLASTIN TIME (BEAKER) (test 27.7 seconds 22.5-36.0 hmeb=434) PROTHROMBIN TIME/[id number] 20:56:00 Test Item Value Reference Range Comments PROTIME (BEAKER) (test ypdc=845) 13.1 seconds 11.9-14.2 INR (BEAKER) (test pqer=977) 1.0 <=5.9 Effective 07/18/2018: PT Reference Range ChangeNew: 11.9-14.2 Previous: 11.7- 14.7RECOMMENDED COUMADIN/WARFARIN INR THERAPY RANGESSTANDARD DOSE: 2.0-3.0 Includes: PROPHYLAXIS for venous thrombosis, systemic embolization; TREATMENT for venous thrombosis and/or pulmonary embolus.HIGH RISK: Target INR is2.5-3.5 for patients wiht mechanical heart valves.CBC W/PLT COUNT & AUTO [id number] 20:50:00 Test Item Value Reference Range Comments WHITE BLOOD CELL COUNT (BEAKER) (test bcti=911) 8.4 K/ L 3.5-10.5 RED BLOOD CELL COUNT (BEAKER) (test ssfj=312) 4.23 M/ L 3.93-5.22 HEMOGLOBIN (BEAKER) (test twlw=488) 13.0 GM/DL 11.2-15.7 HEMATOCRIT (BEAKER) (test uxuc=141) 41.2 % 34.1-44.9 MEAN CORPUSCULAR VOLUME (BEAKER) (test fexp=960) 97.4 fL 79.4-94.8 MEAN CORPUSCULAR HEMOGLOBIN (BEAKER) (test 30.7 pg 25.6-32.2 mqug=221) MEAN CORPUSCULAR HEMOGLOBIN CONC (BEAKER) (test 31.6 GM/DL 32.2-35.5 akmr=669) RED CELL DISTRIBUTION WIDTH (BEAKER) (test 12.8 % 11.7-14.4 ajir=999) PLATELET COUNT (BEAKER) (test fhpr=106) 230 K/CU MM 150-450 MEAN PLATELET VOLUME (BEAKER) (test emeq=141) 9.9 fL 9.4-12.3 NUCLEATED RED BLOOD CELLS (BEAKER) (test 0 /100 WBC 0-0 yerm=774) NEUTROPHILS RELATIVE PERCENT (BEAKER) (test 87 % rlwj=176) LYMPHOCYTES RELATIVE PERCENT (BEAKER) (test 12 % smzq=679) MONOCYTES RELATIVE PERCENT (BEAKER) (test 1 % djsd=450) EOSINOPHILS RELATIVE PERCENT (BEAKER) (test 0 % wizi=393) BASOPHILS RELATIVE PERCENT (BEAKER) (test 0 % isqr=705) NEUTROPHILS ABSOLUTE COUNT (BEAKER) (test 7.32 K/ L 1.56-6.13 hbii=848) LYMPHOCYTES ABSOLUTE COUNT (BEAKER) (test 0.98 K/ L 1.18-3.74 gjhh=621) MONOCYTES ABSOLUTE COUNT (BEAKER) (test 0.08 K/ L 0.24-0.36 ndmv=911) EOSINOPHILS ABSOLUTE COUNT (BEAKER) (test 0.00 K/ L 0.04-0.36 hdjp=416) BASOPHILS ABSOLUTE COUNT (BEAKER) (test 0.01 K/ L 0.01-0.08 cmsn=297) IMMATURE GRANULOCYTES-RELATIVE PERCENT (BEAKER) 0 % 0-1 (test aluv=9611) [id number] 19:45:00 Test Item Value Reference Range Comments TROPONIN-I (test 0.18 ng/mL 0.00-0.05 RESULTS CALLED TO SOLITARIO SCHUMACHER code=TROPI) AT 1945 07/28/18.Ligia MalloyCRIGUS L VALUE READ BACK BY NURSE AND VERIFIED BY TECH? Y<0.05 Normal0.06 - 0.39 Consistent with circulating Troponin with possible Myocardial injury.>0.40 Consistent with Myocardial injury extensive enough to conform with AMI as defined by WHO. COMPREHENSIVE METABOLIC [id number] 16:08:00 Test Item Value Reference Range Comments [...] 45-117 (test code=ALKP) - XR CHEST 1 [id number] 15:43:00 FAX: Rhett Jo Camps: ER St: REG Name: HENRIQUE ARECHIGA [facility]- Emergency Services : 1940 Age/S: 78/F [address] Unit #: [id number] Loc: [place], [place] [address] Phys: Rhett Sams MD Acct: [id number] Dis Date: Status: REG ER PHONE #: [phone] Exam Date: 07/28/2018 1527 FAX #: [phone] Reason: CP EXAMS: CPT CODE: [id number] XR CHEST 1 V [id number] Examination: Chest 1 view Location code: S17 [...] BUNN M.D. CC: Rhett Sams MDTechnologist: HESHAM FONG, RT,(R) ARRT Transcribed Date/Time/By: 07/28/2018 (2020) : [email or web address] Orig Print D/T: S: 07/28/2018 (2678) Automated exposure control, iterative reconstruction technique, and/ oradjustment of mA and/or kV according to patient's size was utilizedfor optimum radiation dose reduction. PAGE 1 Signed ReportTROPONIN I [id number] 15:37:00 Test Item Value Reference Range Comments TROPONIN I RAPID (test 0.03 NG/ML 0.00-0.08 0.00 - 0.08 Normal0.09 - code=TROPIRAP) 0.40 Indeterminate for AMI 0.41 and above Compatible with AMI CHEMISTRY 8 [id number] 15:36:00 Test Item Value Reference Range Comments [...] (test code=CREATBED) 2.6 MG/DL 0.6-1.0 CBC W/AUTO [id number] 15:34:00 Test Item Value Reference Range Comments [...]
--- OUTSIDE RECORDS SUMMARY | 2018-09-10 09:02 | XMS REPORT ---
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 [...] stent Z95.5 Active placement Problem Atherosclerosis of [place] coronary I25.10 Active artery Medications Medication Code Code Instructions Start End Status Dosage System Date Date Furosemide [facility] 15169653375 40 MG Orally Active 1 tablet Once a day Tradjenta [facility] 05611044170 5 MG Orally Active 1 tablet Once a day Simvastatin ND 65489971144 40 MG Orally Active 1/2 tablet in Once a day the evening Metoprolol [facility] 08289888274 100 MG Orally Active 1 tablet Succinate ER Twice a day Norvasc [facility] 02483112508 10 MG Orally Active 1 tablet Once a day Cranberry [facility] [address] Active not defined Extract Tresiba [facility] 23191790213 200 UNIT/ML Active INJECT 10 UNITS FlexTouch SUBCUTANEOUSLY DAILY Lactobacillus [facility] 0 Active not defined Clopidogrel [facility] 41135418956 75 MG Orally Active 1 tablet Bisulfate Once a day Results No Known Results Summary Purpose eClinicalWorks Submission
--- OUTSIDE RECORDS SUMMARY | 2018-09-10 09:02 | XMS REPORT ---
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 Problem [...] stent Z95.5 Active placement Problem Atherosclerosis of [place] coronary I25.10 Active artery Medications Medication Code Code Instructions Start End Status Dosage System Date Date Metoprolol ND 50696112295 100 MG Orally Active 1 tablet Succinate ER Twice a day Simvastatin ND 77225721693 40 MG Orally Active 1/2 tablet in Once a day the evening Lactobacillus NDC 0 Active not defined Furosemide ND 84522246852 40 MG Orally Active 1 tablet Once a day Norvasc [facility] 50885986240 10 MG Orally Active 1 tablet Once a day Tresiba [facility] 11700130929 200 UNIT/ML Active INJECT 10 UNITS FlexTouch SUBCUTANEOUSLY DAILY Tradjenta [facility] 18421674787 5 MG Orally Active 1 tablet Once a day Cranberry [facility] 26230-98580 Active not defined Extract Clopidogrel [facility] 14836849125 75 MG Orally Active 1 tablet Bisulfate Once a day Results No Known Results Summary Purpose eClinicalWorks Submission
--- OUTSIDE RECORDS SUMMARY | 2018-09-10 09:02 | XMS REPORT ---
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 [...] stent Z95.5 Active placement Problem Atherosclerosis of [place] coronary I25.10 Active artery Problem Chronic kidney disease (CKD), stage N18.4 Active IV (severe) Problem 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 Active classified elsewhere Medications Medication Code Code Instructions Start End Status Dosage System Date Date Lactobacillus NDC 0 Active not defined Furosemide ND 74821629377 40 MG Orally Active 1 tablet Once a day Bactrim DS ND 14781103093 800-160 MG Feb 21Feb Active 1 tablet Orally Twice a 2019 2018 Simvastatin ND 51380316470 40 MG Orally Active 1/2 [place] [address] Active not defined Extract Norvasc [facility] 91396178958 10 MG Orally Active 1 tablet Once a day Tresiba [facility] 28610574628 200 UNIT/ML Active INJECT 10 UNITS FlexTouch SUBCUTANEOUSLY DAILY Tradjenta [facility] 83134826307 5 MG Orally Active 1 tablet Once a day Clopidogrel [facility] 75148159443 75 MG Orally Active 1 tablet Bisulfate Once a day Metoprolol [facility] 68681723848 100 MG Orally Active 1 tablet Succinate ER Twice a day Results No Known Results Summary Purpose eClinicalWorks Submission
--- OUTSIDE RECORDS SUMMARY | 2018-09-10 09:02 | XMS REPORT ---
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
--- OUTSIDE RECORDS SUMMARY | 2018-09-10 09:02 | XMS REPORT ---
[...] stent Z95.5 Active placement Problem Atherosclerosis of [place] coronary I25.10 Active artery Medications No Known Medications Results No Known Results Summary Purpose eClinicalWorks Submission
--- OUTSIDE RECORDS SUMMARY | 2018-09-10 09:02 | XMS REPORT ---
[...] stent Z95.5 Active placement Assessment Atherosclerosis of [place] coronary I25.10 Active artery Assessment At risk for falling Z91.81 Active Problem Proteinuria, unspecified R80.9 Active Assessment Mixed hyperlipidemia E78.2 Active Problem H/O stroke without residual deficits Z86.73 Active Assessment Proteinuria, unspecified R80.9 Active Problem Chronic kidney disease (CKD), stage N18.4 Active IV (severe) Problem At risk for falling Z91.81 Active Problem Other osteoporosis M81.8 Active Problem USP current 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 Z79.4 Active Problem Type 2 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 Assessment USP current 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 Z79.4 Active Assessment Hypertensive heart disease without I11.9 Active heart failure Problem Cervical stenosis of spine M48.02 Active Assessment 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 classified I43 Active elsewhere Problem 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 classified I43 Active elsewhere Problem Atherosclerosis of [place] coronary I25.10 Active artery Problem Hypertensive [...] End Status Dosage System Date Date Metoprolol [facility] 23561029502 100 MG Orally Active 1 tablet Succinate ER Twice a day Tradjenta [facility] 98427244158 5 MG Orally Active 1 tablet Once a day Simvastatin [facility] 77576646099 40 MG Orally Active 1/2 tablet Once a day in the evening Furosemide [facility] 21584366678 40 MG Orally Active 1 tablet Once a day Clopidogrel [facility] 81796347278 75 MG Orally Active 1 tablet Bisulfate Once a day Tresiba FlexTouch [facility] 87597459154 200 UNIT/ML Active 10 units Subcutaneous daily Cranberry Extract [facility] 415[address] Active not defined Lactobacillus [facility] 0 Active not defined Norvasc [facility] 54397255010 10 MG Orally Active 1 tablet Once a day Results No Known Results Summary Purpose eClinicalWorks Submission
--- OUTSIDE RECORDS SUMMARY | 2018-09-10 09:02 | XMS REPORT ---
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
--- OUTSIDE RECORDS SUMMARY | 2018-09-10 09:02 | XMS REPORT ---
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 Active Problem Atherosclerosis of [place] coronary I25.10 Active artery Problem Chronic kidney disease (CKD), stage N18.4 Active IV (severe) Problem H/O stroke without residual Z86.73 Active deficits Medications Medication Code Code Instructions Start End Status Dosage System Date Date Simvastatin [facility] 32838921340 40 MG Orally Active 1/2 tablet Once a day in the evening Tradjenta [facility] 22803538795 5 MG Orally Active 1 tablet Once a day Metoprolol [facility] 87382452170 100 MG Orally Active 1 tablet Succinate ER Twice a day Cranberry Extract [facility] [address] Active not defined Tresiba FlexTouch [facility] 56763238152 200 UNIT/ML Active 10 units Subcutaneous daily Norvasc [facility] 52522484213 10 MG Orally Active 1 tablet Once a day Clopidogrel [facility] 91675458845 75 MG Orally Active 1 tablet Bisulfate Once a day Furosemide [facility] 42678634226 40 MG Orally Active 1 tablet Once a day Lactobacillus [facility] 0 Active not defined Results Name Result Date Reference Range Unit Abnormality Flag X-RAY EXAM KNEE STANDING VIEW (22213) Summary Purpose eClinicalWorks Submission
--- OUTSIDE RECORDS SUMMARY | 2018-09-10 09:02 | XMS REPORT ---
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
--- OUTSIDE RECORDS SUMMARY | 2018-09-10 09:02 | XMS REPORT ---
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
--- OUTSIDE RECORDS SUMMARY | 2018-09-10 09:03 | XMS REPORT ---
[...] stent Z95.5 Active placement Problem Atherosclerosis of [place] coronary I25.10 Active artery Problem Chronic kidney disease (CKD), stage N18.4 Active IV (severe) Problem 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 Active classified elsewhere Medications No Known Medications Results No Known Results Summary Purpose eClinicalWorks Submission
--- OUTSIDE RECORDS SUMMARY | 2018-09-10 09:03 | XMS REPORT ---
:1940 Author Organization eClinicalWorks Care Team Providers Name Role Phone Orlando John Provider Role Unavailable Allergies No Known Allergies Problems Problem Type Condition Code Onset Dates Condition Status Problem snf current 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 Z79.4 Active Problem [...] stent Z95.5 Active placement Problem Atherosclerosis of [place] coronary I25.10 Active artery Problem Chronic kidney disease (CKD), stage N18.4 Active IV (severe) Problem 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 Active classified elsewhere Medications No Known Medications Results No Known Results Summary Purpose eClinicalWorks Submission
--- OUTSIDE RECORDS SUMMARY | 2018-09-10 09:03 | XMS REPORT ---
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 Problem Atherosclerosis of [place] coronary I25.10 Active artery Assessment Chronic kidney disease, stage 4 N18.4 Active (severe) Problem 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 Active classified elsewhere Assessment Medicare annual wellness visit, Z00.00 Active subsequent Problem group home current 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 [...] Start End Status Dosage System Date Date [facility] 58802049031 10 MG Orally Active 1 tablet Once a day Metoprolol [facility] 99435943266 100 MG Orally Active 1 tablet Succinate ER Twice a day Tradjenta [facility] 62700060801 5 MG Orally Active 1 tablet Once a day Simvastatin [facility] 28640909386 40 MG Orally Active 1/2 tablet in Once a day the evening Furosemide [facility] 78471124638 40 MG Orally Active 1 tablet Once a day Simvastatin [facility] 51137733456 40 MG Orally Active 1/2 tablet in Once a day the evening Clopidogrel [facility] 71377015638 75 MG Orally Active 1 tablet Bisulfate Once a day Cranberry [facility] 78[address]-9[address] Active not defined Extract Lactobacillus [facility] 0 Active not defined Tradjenta [facility] 77836412372 5 MG Orally Active 1 tablet Once a day Tresiba [facility] 85142928870 200 UNIT/ML Active INJECT 10 UNITS FlexTouch SUBCUTANEOUSLY DAILY Tresiba [facility] 90891408773 200 UNIT/ML Active 10 units FlexTouch Subcutaneous daily Results No Known Results Summary Purpose eClinicalWorks Submission
--- OUTSIDE RECORDS SUMMARY | 2018-09-10 09:03 | XMS REPORT ---
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 Problem 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 Active classified elsewhere Assessment Chronic kidney disease, stage 4 N18.4 Active (severe) Problem penitentiary current 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 Z79.4 [...] End Status Dosage System Date Date Tradjenta [facility] 52091266569 5 MG Orally Active 1 tablet Once a day Furosemide [facility] 32890673723 40 MG Orally Active 1 tablet Once a day Norvasc [facility] 97574785099 10 MG Orally Active 1 tablet Once a day Metoprolol [facility] 29896893554 100 MG Orally Active 1 tablet Succinate ER Twice a day Tresiba [facility] 49670407900 200 UNIT/ML Active 10 units FlexTouch Subcutaneous daily Tresiba [facility] 85686921227 200 UNIT/ML Active INJECT 10 UNITS FlexTouch SUBCUTANEOUSLY DAILY Simvastatin [facility] 99596928969 40 MG Orally Active 1/2 tablet in Once a day the evening Simvastatin [facility] 14248471225 40 MG Orally Active 1/2 tablet in Once a day the evening Tradjenta [facility] 79148017402 5 MG Orally Active 1 tablet Once a day Clopidogrel [facility] 43166066165 75 MG Orally Active 1 tablet Bisulfate Once a day Lactobacillus NDC 0 Active not defined Cranberry [facility] [address] Active not defined Extract Results No Known Results Summary Purpose eClinicalWorks Submission
--- OUTSIDE RECORDS SUMMARY | 2018-09-10 09:03 | XMS REPORT ---
:1940 Author Organization eClinicalWorks Care Team Providers Name Role Phone Orlando John Provider Role Unavailable Allergies No Known Allergies Problems Problem Type Condition Code Onset Dates Condition Status Problem USP current 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 Z79.4 [...] stent Z95.5 Active placement Problem Atherosclerosis of [place] coronary I25.10 Active artery Problem Chronic kidney disease (CKD), stage N18.4 Active IV (severe) Problem 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 Active classified elsewhere Medications No Known Medications Results No Known Results Summary Purpose eClinicalWorks Submission
--- OUTSIDE RECORDS SUMMARY | 2018-09-10 09:03 | XMS REPORT ---
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 Problem Type 2 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 Problem Cervical stenosis of spine M48.02 Active Problem Acute pain of left knee M25.562 Active Problem Mixed hyperlipidemia E78.2 Active Problem Pain, joint, knee, right M25.561 Active Assessment Acute cystitis without hematuria N30.00 Active Problem Adult BMI 36.0-36.9 kg/sq m [...] stent Z95.5 Active placement Problem Atherosclerosis of [place] coronary I25.10 Active artery Assessment Dysuria R30.0 Active Problem Chronic kidney disease (CKD), stage N18.4 Active IV (severe) Problem 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 Active classified elsewhere Medications Medication Code Code Instructions Start End Status Dosage System Date Date Tresiba [facility] 24656742058 200 UNIT/ML Active 10 units FlexTouch Subcutaneous daily Tradjenta [facility] 04023893700 5 MG Orally Active 1 tablet Once a day Tradjenta [facility] 62525499906 5 MG Orally Active 1 tablet Once a day Metoprolol [facility] 74519379034 25 MG Orally Active 1 tablet with Tartrate Twice a day food Calcitriol ND 49267071110 0.5 MCG Orally Oct Active 1 capsule Once a day 2018 Nitrostat ND 63197171213 0.4 MG Active as directed Sublingual 3 doses within 15 minutes PRN CHEST PAIN Cyanocobalamin [facility] [address]-92 1000 MCG Active 1 tablet Orally Once a day Tresiba [facility] 16188690846 200 UNIT/ML Active INJECT 10 UNITS FlexTouch SUBCUTANEOUSLY DAILY Aspir-Low ND 51871229903 81 MG Orally Active 1 tablet Once a day Bumex [facility] 38442548200 0.5 MG Orally Active as directed Bactrim DS [facility] 06189780306 800-160 MG August Active 1 tablet Orally Twice a , , day 2018 2018 Clopidogrel [facility] 62183673750 75 MG Orally Active 1 tablet Bisulfate Once a day Vitamin D-3 [facility] 41260824761 5000 UNIT Active as directed Orally Senna S [facility] 16656853503 8.6-50 MG Active 1 tablet in the Orally Once a evening as day needed Cranberry [facility] [address] Active not defined Extract Lactobacillus ND 0 Active not defined Folic Acid [facility] 67743287590 1 MG Orally Active 1 tablet Once a day Pyridium [facility] 61055827146 200 MG Orally August Active 1 tablet after Three times a 18, 20, meals 2018 Lipitor ND 59131278315 80 MG Orally Active 1 tablet Once a day Amiodarone HCl ND 96360185871 200 MG Orally Active 1 tablet Once a day Thiamine HCl [facility] 17516131944 100 MG Orally Active 1 tablet Once a day Results No Known Results Summary Purpose eClinicalWorks Submission
--- OUTSIDE RECORDS SUMMARY | 2018-09-10 09:03 | XMS REPORT ---
[...] Cervical stenosis of spine M48.02 Active Assessment Adult BMI 36.0-36.9 kg/sq m Z68.36 Active Assessment At risk for falling Z91.81 Active Assessment Other osteoporosis M81.8 Active Assessment Mixed hyperlipidemia E78.2 Active Assessment Atherosclerosis of [place] coronary I25.10 Active artery Assessment History of coronary artery stent Z95.5 Active placement Assessment Proteinuria, unspecified R80.9 Active Assessment 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 Active classified elsewhere Problem Atherosclerosis of [place] coronary I25.10 Active artery Assessment Hypertensive heart disease without I11.9 Active heart failure Problem 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 Active classified elsewhere Assessment Chronic kidney disease, stage 4 N18.4 Active (severe) Problem longterm current 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 Z79.4 [...] osteoarthritis of right M17.11 Active knee Assessment [employer] current 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 Z79.4 Active Problem H/O stroke without residual Z86.73 Active deficits Assessment H/O stroke without residual Z86.73 Active [...] Start End Status Dosage System Date Date Clopidogrel [facility] 56195701298 75 MG Orally Active 1 tablet Bisulfate Once a day Simvastatin [facility] 78150546064 40 MG Orally Active 1/2 tablet in Once a day the evening Nitrostat [facility] 19621168607 0.4 MG Active as directed Sublingual 3 doses within 15 minutes PRN CHEST PAIN Calcitriol [facility] 72815750704 0.5 MCG Oct Active 1 capsule Orally Once a , 2018 Simvastatin [facility] 39961009778 40 MG Orally Inactive 1/2 tablet in Once a day the evening Furosemide [facility] 32459895806 40 MG Orally Inactive 1 tablet Once a day Folic Acid [facility] 17159113964 1 MG Orally Active 1 tablet Once a day Senna S [facility] 39376097619 8.6-50 MG Active 1 tablet in the Orally Once a evening as day needed Cranberry [facility] 56636-[address] Active not defined Extract Tresiba [facility] 29687833490 200 UNIT/ML Active INJECT 10 UNITS FlexTouch SUBCUTANEOUSLY DAILY Cyanocobalamin [facility] [address]-83 1000 MCG Active 1 tablet Orally Once a day Metoprolol [facility] 49705153852 25 MG Orally Active 1 tablet with Tartrate Twice a day food Tradjenta [facility] 96938503076 5 MG Orally Active 1 tablet Once a day Thiamine HCl [facility] 66253985851 100 MG Orally Active 1 tablet Once a day Amiodarone HCl [facility] 92489104615 200 MG Orally Active 1 tablet Once a day Lipitor [facility] 91175835800 80 MG Orally Active 1 tablet Once a day Aspir-Low [facility] 02984275193 81 MG Orally Active 1 tablet Once a day Tradjenta [facility] 65185358604 5 MG Orally Active 1 tablet Once a day Tresiba [facility] 00480693744 200 UNIT/ML Active 10 units FlexTouch Subcutaneous daily Vitamin D-3 [facility] 29632078904 5000 UNIT Active as directed Orally Metoprolol [facility] 21370561962 100 MG Orally Inactive 1 tablet Succinate ER Twice a day Lactobacillus NDC 0 Active not defined Norvasc [facility] 49413104234 10 MG Orally Inactive 1 tablet Once a day Bumex [facility] 30116122261 0.5 MG Orally Active as directed Results No Known Results Summary Purpose eClinicalWorks Submission
[2018-09-10 09:43] LABS: Absolute Lymphocytes (CBC) 0.6 K/uL (0.7-4.9); Basophils % 0.3 % (0-1.3); Hematocrit 36.8 % (36.0-45.0); Lymphocytes % 6.6 % (15.3-44.8); MPV 9.1 fL (7.6-11.3); RBC Red Blood Cell Count 3.88 M/uL (3.86-4.86)
--- NOTE | 2018-09-10 09:48 | RAD REPORT ---
EXAM DESCRIPTION: Axel Single View09/10/2018 9:23 am CLINICAL HISTORY: Shortness of breath COMPARISON: August 27, 2018 FINDINGS: Kqet-[id number]-pljceezs bilateral pulmonary opacities with small pleural effusions. Heart is mildly to moderately enlarged IMPRESSION: CHF
[2018-09-10 10:16] LABS: Potassium 4.1 mmol/L (3.5-5.1); Troponin (Emerg Dept Use Only) 0.32 ng/mL (0.0-0.045)
[2018-09-10] MEDS ORDERED: ACETAMINOPHEN 325 MG TABLET ONE (10:34)
[2018-09-10] MEDS ORDERED: FUROSEMIDE 40 MG/4 ML VIAL ONE (10:34)
[2018-09-10] MEDS ORDERED: ONDANSETRON 4 MG/2 ML VIAL ONE (10:34)
[2018-09-10 10:40] LABS: Urine Blood 1+ (NEG); Urine Glucose 1+ (NEG); Urine Protein 2+ (NEG); Urine Specific Gravity 1.015 (1.005-1.030); Urine pH 5.5 (5.0-7.0)
[2018-09-10 10:45] LABS: Urine Bacteria >50 /HPF (<20); Urine Culture Reflex Order NOT NEEDED
--- NOTE | 2018-09-10 11:32 | EDPHYS ---
Physician Documentation [facility] Name: Suzan Gonzalez Age: 78 yrs Sex: Female : 1940 Arrival Date: 09/10/2018 Time: 08:53 Bed 7 Private MD: ED Physician Hipolito Phan HPI: 09/10 09:38 This 78 yrs old Female presents to ER via EMS with complaints of Shortness Of rn Breath, Nausea/Vomiting. 09:38 The patient has shortness of breath at rest. Onset: The symptoms/episode began/occurred rn at an unknown time. Duration: The symptoms are intermittent. The patient's shortness of breath is aggravated by light activity, supine position. Severity of symptoms: At their worst the symptoms were moderate in the emergency department the symptoms have improved. The patient has experienced similar episodes in the past. Reports started on abx for UTI last week, has had approx 4 days, doesn't feel like it is working, now with nausea/vomiting, no diarrhea. Reports sob when laying flat and exertion. Had NSTEMI last month, transferred to [facility], family reports 7 new stents, and went to rehab. Taking bumex. Reports sob better when sitting up. NO chest pain. + decreased urination lately.. Historical: - Allergies: 09:01 "every pain narcotic"; ss 09:01 Bactrim; ss 09:01 Benadryl; ss 09:01 Iodine; ss 09:01 Levaquin; ss 09:01 Morphine; ss - PMHx: 09:01 CHF; Diabetes - IDDM; Hypertension; Osteoporosis; POOR CIRCULATION; Renal Disease; ss - PSHx: 09:01 neck surgery; Cholecystectomy; Hysterectomy; Heart stents; ss - Immunization history:: Adult Immunizations up to date. - Social history:: Smoking status: Patient/guardian denies using tobacco. - Ebola Screening: : Patient denies exposure to infectious person Patient denies travel to an Ebola-affected area in the 21 days before illness onset. - Family history:: not pertinent. - Hospitalizations: : The patient was recently seen at [facility], Patient was recently seen at. ROS: 09:38 Constitutional: Negative for fever, chills, and weight loss, Eyes: Negative for injury, rn pain, redness, and discharge, Neck: Negative for injury, pain, and swelling, Cardiovascular: Negative for chest pain, palpitations Respiratory: + sob Abdomen/GI: Negative for abdominal pain, diarrhea, and constipation, MS/Extremity: Negative for injury and deformity, Skin: Negative for injury, rash, and discoloration, Neuro: Negative for headache, numbness, tingling, and seizure. Exam: 09:38 Constitutional: This is a well developed, well nourished patient who is awake, alert, rn appears anxious Head/Face: Normocephalic, atraumatic. Eyes: Pupils equal round and reactive to light, extra-ocular motions intact. Lids and lashes normal. Conjunctiva and sclera are non-icteric and not injected. Cornea within normal limits. Periorbital areas with no swelling, redness, or edema. ENT: dry MM Cardiovascular: Tachycardic, regular, no murmur Respiratory: + mild tachypnea with diminished bilateral breath sounds, no wheezing Abdomen/GI: soft, non-tender MS/ Extremity: Pulses equal, no cyanosis. 1+ edema bilateral lower ext Neuro: Awake and alert, GCS 15, oriented to person, place, time, and situation. Cranial nerves II-XII grossly intact. Motor strength 5/5 in all extremities. Sensory grossly intact. 10:06 ECG was reviewed by the Attending Physician. rn Vital Signs: 09:01 BP 139 / 60; Pulse 107; Resp 22; Temp 99.3(TE); Pulse Ox 86% on R/A; Weight 76.66 kg; ss Height 5 ft. 1 in. (154.94 cm); Pain 0/10; 09:44 BP 114 / 81; Pulse 99; Resp 18; Pulse Ox 94% ; em1 10:41 BP 132 / 81; Pulse 95; Resp 19; Temp 98.8(TE); Pulse Ox 94% on 2 lpm NC; Pain 0/10; ss 12:25 BP 121 / 67; Pulse 83; Resp 17; Pulse Ox 96% on 2 lpm NC; Pain 0/10; ss 14:01 BP 120 / 56; Pulse 53; Pulse Ox 100% on 2 lpm NC; ss 09:01 Body Mass Index 31.93 (76.66 kg, 154.94 cm) MDM: 08:54 Patient medically screened. rn 09:08 ED course: HOlding fluids for now given high likelihood of pulmonary edema given her rn symptoms worse when laying down, + known CHF and CKD, and decreased UOP. Tachycardia also likely from temp elevation. BP stable. . 11:29 Differential diagnosis: CHF exacerbation, Myocardial Infarction pneumonia, Pneumothorax rn pulmonary edema, reactive airway disease, Sepsis. Data reviewed: vital signs, nurses notes, lab test result(s), EKG, radiologic studies, plain films, and as a result, I will admit patient. Counseling: I had a detailed discussion with the patient and/or guardian regarding: the historical points, exam findings, and any diagnostic results supporting the discharge/admit diagnosis, lab results, radiology results, the need for further work-up and treatment in the hospital. Response to treatment: the patient's symptoms have mildly improved after treatment, and as a result, I will admit patient. Admission orders: after a detailed discussion of the patient's condition and case, the admit orders are written by me. ED course: Pt with UTI, failure of outpt therapy, + CHF with pulmonary edema and oxygen requirement, will admit. Trop elevated, but likely due to CHF.. 09/10 09:08 Order name: Urine Microscopic Only 09/10 09:08 Order name: Urine Culture 09/10 09:08 Order name: CBC with Diff 09/10 09:08 Order name: Basic Metabolic Panel 09/10 09:08 Order name: Blood Culture Adult (2) 09/10 09:08 Order name: Procalcitonin 09/10 09:08 Order name: Lactate; Complete Time: 10:31 09/10 09:08 Order name: N-Terminal Pro-brain Natriuretic Peptide; Complete Time: 10:31 09/10 09:08 Order name: Troponin (emerg Dept Use Only); Complete Time: 10:31 09/10 09:10 Order name: Urine Microscopic Only; Complete Time: 11:16 [facility] 09/10 09:11 Order name: Urine Culture [facility] 09/10 09:12 Order name: CBC with Automated Diff; Complete Time: 10:00 [facility] 09/10 09:12 Order name: Basic Metabolic Panel; Complete Time: 10:31 [facility] 09/10 09:12 Order name: Blood Culture [facility] 09/10 09:08 Order name: IV Start; Complete Time: 09:21 rn 09/10 09:08 Order name: Urine Dipstick-Ancillary (obtain specimen); Complete Time: 10:35 rn 09/10 09:08 Order name: XRAY Chest (1 view); Complete Time: 10:00 rn 09/10 09:12 Order name: Procalcitonin; Complete Time: 10:31 EDMS 09/10 10:35 Order name: Urine Dipstick--Ancillary (enter results); Complete Time: 11:16 bd 09/10 12:49 Order name: Diet Ada 1800 Danilo; Complete Time: 12:51 iw EC: Rate is 101 beats/min. Rhythm is regular. QRS [place] is Normal. VA interval is normal. rn QRS interval is normal. QT interval is normal. No Q waves. T waves are Normal. No ST changes noted. Clinical impression: Sinus tachycardia. Reviewed by me. Administered Medications: 10:28 Drug: Tylenol 650 mg Route: PO; ss 10:32 Drug: Zofran 4 mg Route: IVP; Site: right antecubital; ss 10:32 Drug: Lasix 40 mg Route: IVP; Site: right antecubital; ss 14:24 Follow up: Response: No adverse reaction ss 11:18 Not Given (see other Rocephin order. Given per pharmacy protocol): Rocephin - ss (cefTRIAXone) 1 grams IVPB once over 30 mins; (mix in 50 mL NS) 11:27 Drug: Rocephin 1 grams Route: IV; Rate: calculated rate; Site: right antecubital; ss 13:30 Follow up: IV Status: Completed infusion ss Disposition: 09/10/18 11:30 Hospitalization ordered by Chalo Gonsalez for Inpatient Admission. Preliminary diagnosis are Pulmonary edema, Unspecified combined systolic (congestive) and diastolic (congestive) heart failure, Hypoxemia, Urinary tract infection, site not specified. - Bed requested for Telemetry/MedSurg (Inpatient). - Status is Inpatient Admission. ss - Condition is Stable. - Problem is new. - Symptoms have improved. UTI on Admission? Yes Signatures: Dispatcher [employer] [facility] Lisa Dudley RN RN dw Nieto, Roman, MD MD rn Smirch, Shelby, RN RN ss Corrections: (The following items were deleted from the chart) 13:55 11:30 Hospitalization Ordered by Chalo Gonsalez MD for Inpatient Admission. Preliminary dw diagnosis is Pulmonary edema; Unspecified combined systolic (congestive) and diastolic (congestive) heart failure; Hypoxemia; Urinary tract infection, site not specified. Bed requested for Telemetry/MedSurg (Inpatient). Status is Inpatient Admission. Condition is Stable. Problem is new. Symptoms have improved. UTI on Admission? Yes. rn 14:24 13:55 09/10/2018 11:30 Hospitalization Ordered by Chalo Gonsalez MD for Inpatient ss Admission. Preliminary diagnosis is Pulmonary edema; Unspecified combined systolic (congestive) and diastolic (congestive) heart failure; Hypoxemia; Urinary tract infection, site not specified. Bed requested for Telemetry/MedSurg (Inpatient). Status is Inpatient Admission. Condition is Stable. Problem is new. Symptoms have improved. UTI on Admission? Yes. dw
--- NOTE | 2018-09-10 11:32 | ER ---
Nurse's Notes [facility] Name: Suzan Gonzalez Age: 78 yrs Sex: Female : 1940 Arrival Date: 09/10/2018 Time: 08:53 Bed 7 Private MD: Diagnosis: Pulmonary edema;Unspecified combined systolic (congestive) and diastolic (congestive) heart failure;Hypoxemia;Urinary tract infection, site not specified Presentation: 09/10 08:54 Presenting complaint: Patient states: N/V x 4 days, shortness of breath that began ss yesterday evening. EMS reports on arrival to home, patient's RA O2 saturation was 86%. Pt reports that she had cardiac stents placed 1 month ago at [facility] and when they were performing the procedure her heart stopped twice results in an EF of 30% upon discharge home. Pt reports that she has had N/V because of the antibiotics she has had to take four times a day, but reports that her UTI symptoms still persist. Transition of care: patient was not received from another setting of care. Onset of symptoms was September 06, 2018. Risk Assessment: Do you want to hurt yourself or someone else? Patient reports no desire to harm self or others. Initial Sepsis Screen: Does the patient meet any 2 criteria? RR > 20 per min. HR > 90 bpm. Does the patient have a suspected source of infection? Yes: Dysuria/Frequency/Urgency/UTI If YES to both, name of provider notified: Hipolito Phan MD. Care prior to arrival: None. 08:54 Method Of Arrival: EMS: [facility] 08:54 Acuity: SERGIO 2 ss Historical: - Allergies: 09:01 "every pain narcotic"; ss 09:01 Bactrim; ss 09:01 Benadryl; ss 09:01 Iodine; ss 09:01 Levaquin; ss 09:01 Morphine; ss - PMHx: 09:01 CHF; Diabetes - IDDM; Hypertension; Osteoporosis; POOR CIRCULATION; Renal Disease; ss - PSHx: 09:01 neck surgery; Cholecystectomy; Hysterectomy; Heart stents; ss - Immunization history:: Adult Immunizations up to date. - Social history:: Smoking status: Patient/guardian denies using tobacco. - Ebola Screening: : Patient denies exposure to infectious person Patient denies travel to an Ebola-affected area in the 21 days before illness onset. - Family history:: not pertinent. - Hospitalizations: : The patient was recently seen at [facility], Patient was recently seen at. Screenin:00 Abuse screen: Denies threats or abuse. Denies injuries from another. Nutritional ss screening: No deficits noted. Tuberculosis screening: Never had TB. Fall Risk No fall in past 12 months (0 pts). Secondary diagnosis (15 points) shortness of breath. IV access (20 points). Ambulatory Aid- None/Bed Rest/Nurse Assist (0 pts). Gait- Normal/Bed Rest/Wheelchair (0 pts) Mental Status- Oriented to own ability (0 pts). Assessment: 09:00 General: Appears uncomfortable, Behavior is calm, cooperative, Reports feeling ill for ss x 4 days. Denies fever, chills. Pain: Denies pain. Neuro: Level of Consciousness is awake, alert, obeys commands, Oriented to person, place, time, situation, Speech is normal, Facial symmetry appears normal, Pupils are PERRLA. Cardiovascular: Capillary refill < 3 seconds is brisk in bilateral Rhythm is sinus tachycardia. Respiratory: Airway is patent Trachea midline Respiratory effort is even, labored, Respiratory pattern is regular, tachypnea Breath sounds with crackles in right posterior lower lobe. GI: Abdomen is non-distended, Reports nausea, vomiting, since x 4 days. Patient believes it is because of all of the antibiotics she has been taking for her UTI. : Reports burning with urination, x 2.5 weeks. Pt reports she has been on antibiotics 4 times a day, but they are not working. EENT: Oral mucosa is moist. Derm: Skin is intact, is healthy with good turgor, Skin is pink, warm \\T\\ dry. normal. Musculoskeletal: Circulation, motion, and sensation intact. Range of motion: intact in all extremities, Swelling absent. 10:00 Reassessment: Patient appears in no apparent distress at this time. Patient and/or ss family updated on plan of care and expected duration. Pain level reassessed. Patient is alert, oriented x 3, equal unlabored respirations, skin warm/dry/pink. family at bedside. Call light within reach. 10:30 Reassessment: assisted patient to bedside commode to provide urine specimen. PT now ss back in bed on monitors. Respirations are even and unlabored. Pulse is 94. 11:30 Reassessment: Patient appears in no apparent distress at this time. No changes from previously documented assessment. 13:00 Reassessment: Patient and/or family updated on plan of care and expected duration. Pain ss level reassessed. Patient is alert, oriented x 3, equal unlabored respirations, skin warm/dry/pink. Respiratory: Respiratory effort is even, unlabored. 14:00 Reassessment: Patient appears in no apparent distress at this time. Patient and/or ss family updated on plan of care and expected duration. Pain level reassessed. Patient is alert, oriented x 3, equal unlabored respirations, skin warm/dry/pink. family at bedside. Awaiting room assignment Patient denies pain at this time. Patient states symptoms have improved. Vital Signs: 09:01 BP 139 / 60; Pulse 107; Resp 22; Temp 99.3(TE); Pulse Ox 86% on R/A; Weight 76.66 kg; ss Height 5 ft. 1 in. (154.94 cm); Pain 0/10; 09:44 BP 114 / 81; Pulse 99; Resp 18; Pulse Ox 94% ; em1 10:41 BP 132 / 81; Pulse 95; Resp 19; Temp 98.8(TE); Pulse Ox 94% on 2 lpm NC; Pain 0/10; ss 12:25 BP 121 / 67; Pulse 83; Resp 17; Pulse Ox 96% on 2 lpm NC; Pain 0/10; ss 14:01 BP 120 / 56; Pulse 53; Pulse Ox 100% on 2 lpm NC; ss 09:01 Body Mass Index 31.93 (76.66 kg, 154.94 cm) ED Course: 08:53 Patient arrived in ED. ss 08:54 Hipolito Phan MD is Attending Physician. rn 09:00 Triage completed. ss 09:00 Patient has correct armband on for positive identification. Placed in gown. Bed in low ss position. Call light in reach. Side rails up X2. child monitor on. Pulse ox on. NIBP on. 09:01 Arm band placed on right wrist. ss 09:18 Inserted saline lock: 22 gauge in right antecubital area, using aseptic technique. iw Blood collected. 09:24 XRAY Chest (1 view) In Process Unspecified. EDMS 10:01 Hodan Segovia, SOLITARIO is Primary Nurse. ss 11:30 Chalo Gonsalez MD is Hospitalizing Provider. rn 14:03 No provider procedures requiring assistance completed. Patient admitted, IV remains in ss place. Administered Medications: 10:28 Drug: Tylenol 650 mg Route: PO; ss 10:32 Drug: Zofran 4 mg Route: IVP; Site: right antecubital; ss 10:32 Drug: Lasix 40 mg Route: IVP; Site: right antecubital; ss 14:24 Follow up: Response: No adverse reaction ss 11:18 Not Given (see other Rocephin order. Given per pharmacy protocol): Rocephin - ss (cefTRIAXone) 1 grams IVPB once over 30 mins; (mix in 50 mL NS) 11:27 Drug: Rocephin 1 grams Route: IV; Rate: calculated rate; Site: right antecubital; ss 13:30 Follow up: IV Status: Completed infusion ss Outcome: 11:30 Decision to Hospitalize by Provider. rn 14:23 Admitted to Tele accompanied by tech, family with patient, via wheelchair, room 247, with chart, Report called to SOLITARIO Tamayo 14:23 Condition: improved 14:23 Instructed on the need for admit. 14:24 Patient left the ED. Signatures: Dispatcher [employer] Nissa Calle, Hipolito Johnson RN, MD MD rn Martinez, Eric em1 Hodan Segovia RN RN
[2018-09-10] MEDS ORDERED: CEFTRIAXONE/SWI 1gm 1 GM/10 ML SYR ONE (11:38)
[2018-09-10] MEDS: INSULIN -REGULAR HUMAN 50 UNIT/0.5 ML ML SQ SCH ×2 (16:30→22:37)
[2018-09-10 17:02] LABS: Urine Appearance TURBID; Urine Bilirubin NEGATIVE (NEG); Urine Blood 2+ (NEG); Urine Color YELLOW; Urine Glucose TRACE (NEG); Urine Protein 1+ (NEG); Urine Urobilinogen 0.2 mg/dL (0.2-1.0)
[2018-09-10 17:15] LABS: Urine Microscopic Reflex ORDER UMIC
[2018-09-10 17:25] LABS: Urine Bacteria >50 /HPF (<20); Urine Culture Reflex Order REFLEXED
--- NOTE | 2018-09-10 18:23 | P.HP ---
Patient History Date of Service: 09/10/18 Reason for admission: UTI History of Present Illness: This is a 30-year-old female with history diabetes, hypertension, CHF admitted for urinary tract infection, failed outpatient treatment. Patient was recently admitted here for non ST elevation myocardial infarction, transferred to [facility]. She reports 7 stent placement and then transferred to rehab here. She was discharged 1 week ago. She reports that the day after getting home, she started with urinary burning and lower abdominal pain. She did azo and saw her primary care physician, who did not start her on any medications at this time. 2 days later, she continued to have worsening symptoms and therefore went back to her primary care physician. She was described Bactrim at this time. She took 3-4 doses before she started getting ill with stomach upset and vomiting. Even then, her dysuria and burning symptoms continue to be there. She therefore decided to come to the emergency room. In the ER, blood pressure was 139/60, heart was 7, respirations of 22, T 99.3, and 86% on room air with a BMI of 31 point anything. Her oxygen saturation improved to 93+ on 2 L nasal cannula. Her labs were remarkable for a creatinine of 3.27, BNP of 42,782, her urine was positive for nitrite and 2+ leukocyte esterase along with lots of bacteria. She was given IV Lasix 40 mg and Rocephin in the ER. At the time of my exam, she was alert oriented x3, satting well on 2 L nasal cannula and hemodynamically stable. The reported feeling slightly better. She was admitted for acute cystitis, failing outpatient treatment along with acute respiratory failure with hypoxia secondary to congestive heart failure exacerbation. Allergies iodine [Iodine] Allergy (Severe, Verified 09/10/18 15:14) throat swelling diphenhydramine HCl [From Benadryl] Allergy (Verified 09/10/18 15:14) Anaphylaxis morphine Allergy (Verified 09/10/18 15:14) Unknown Sulfa (Sulfonamide Antibiotics) Allergy (Verified 09/10/18 15:14) Unknown sulfamethoxazole [From Bactrim] Allergy (Verified 09/10/18 15:14) Anaphylaxis trimethoprim [From Bactrim] Allergy (Verified 09/10/18 15:14) Anaphylaxis levofloxacin [From Levaquin] Adverse Reaction (Severe, Verified 09/10/18 15:14) vomiting metoclopramide [From Reglan] Adverse Reaction (Verified 09/10/18 15:14) Nausea/Vomiting promethazine [From Phenergan] Adverse Reaction (Verified 09/10/18 15:14) Nausea/Vomiting Narcotics Allergy (Severe, Uncoded 09/10/18 15:14) Anaphylaxis Home medications list reviewed: Yes Home Medications: Amiodarone HCl [Cordarone*] 200 mg PO DAILY 08/22/18 Atorvastatin Calcium [Lipitor] 80 mg PO BEDTIME 08/22/18 Bumetanide [Bumex*] 0.5 tab PO SEECOM 08/22/18 Clopidogrel Bisulfate [Plavix*] 75 mg PO DAILY 08/22/18 Folic Acid 1 mg PO DAILY 08/22/18 Metoprolol Tartrate [Lopressor*] 25 mg PO BID 08/22/18 Nitroglycerin [Nitrostat*] 0.4 mg SL SEECOM 08/22/18 Cholecalciferol (Vitamin D3) [Vitamin D 5,000 IU Cap*] 5,000 unit PO DAILY #30 cap 09/03/18 Insulin Degludec [Tresiba Flextouch U-200] 10 unit SQ BEDTIME #30 ml 09/03/18 Linagliptin [Tradjenta] 5 mg PO DAILY 09/10/18 - Past Medical/Surgical History Has patient received pneumonia vaccine in the past: Yes Diabetic: Yes -: Diabetes mellitus type 2 -: Hypertension -: Chronic renal disease -: Broken tani shoulders, toes tani feet, L elbow hx -: Cataract -: History DVT to the left lower extremity -: Hyperlipidemia -: CAD with multiple stents -: Peripheral vascular disease -: Carotid arterial disease -: History of osteomyelitis -: Severe cervical spine disease -: Cardiac Cath with 3 stents -: 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 She has 6 children - Family History Father History Unknown: Yes -: GI disease, Cancer Mother History Unknown: Yes -: GI disease, Stroke, Cancer, Other (see notes) Notes: brain tumor Brother History Unknown: Yes -: Heart disease, Hypertension, Diabetes, Kidney disease Sister History Unknown: Yes -: Heart disease, Hypertension, GI disease - Social History Smoking Status: Never smoker Alcohol use: No CD- Drugs: No Caffeine use: Yes Place of Residence: Home Review of Systems 10-point ROS is otherwise unremarkable Physical Examination - Vital Signs Temperature: 97.7 F Blood Pressure: 127/51 Pulse: 84 Respirations: 20 Pulse Ox (%): 96 - Physical Exam General: Alert, In no apparent distress, Oriented x3 HEENT: Atraumatic, PERRLA, Mucous membr. moist/pink, EOMI, Sclerae nonicteric Neck: Supple, 2+ carotid pulse no bruit, No LAD, Without JVD or thyroid abnormality Respiratory: Clear to auscultation bilaterally, Normal air movement Cardiovascular: Regular rate/rhythm, Normal S1 S2 Gastrointestinal: Normal bowel sounds, No tenderness Musculoskeletal: No tenderness Integumentary: No rashes Neurological: Normal gait, Normal speech, Normal strength at 5/5 x4 extr, Normal tone, Normal affect Lymphatics: No axilla or inguinal lymphadenopathy - Studies Laboratory Data (last 24 hrs) 09/10/18 09:14: Sodium 135 L, Potassium 4.1, BUN 54 H, Creatinine 3.27 H, Glucose 262 H 09/10/18 09:14: WBC 8.5 D, Hgb 12.3, Hct 36.8, Plt Count 245 Assessment and Plan - Problems (Diagnosis) (1) Acute cystitis Current Visit: Yes Status: Acute Plan: - continue IV antibiotics - will hold IV fluids at this time due to a history of CHF - cultures pending, will adjust antibiotics accordingly Qualifiers: Hematuria presence: without hematuria Qualified Code(s): N30.00 - Acute cystitis without hematuria (2) Failure of outpatient treatment Current Visit: Yes Status: Acute (3) Acute respiratory failure Current Visit: Yes Status: Acute Plan: Secondary to CHF exacerbation - BNP elevated to 42,000 - will continue her home diuretics along with IV diuresis at this time - provide oxygen per protocol. - continuous oxygen monitor - fluid restriction. Strict ins and outs - CHF guidelines Qualifiers: Respiratory failure complication: hypoxia Qualified Code(s): J96.01 - Acute respiratory failure with hypoxia (4) Congestive heart failure Current Visit: Yes Status: Chronic Qualifiers: Heart failure type: diastolic Heart failure chronicity: chronic Qualified Code(s): I50.32 - Chronic diastolic (congestive) heart failure (5) Acute on chronic renal failure Onset Date: 12/08/16 Current Visit: No Status: Acute Qualifiers: Acute renal failure type: unspecified Chronic kidney disease stage: stage 3 (moderate) Qualified Code(s): N17.9 - Acute kidney failure, unspecified; N18.3 - Chronic kidney disease, stage 3 (moderate) (6) Diabetes mellitus Onset Date: 07/31/14 Current Visit: No Status: Chronic Plan: Accu-Cheks and mild sliding scale insulin. - Will restart home insulin. Monitor and adjust accordingly Qualifiers: Diabetes mellitus type: type 2 Diabetes mellitus skilled nursing insulin use: with intermission coordinator use Diabetes mellitus complication status: with kidney complications Diabetes mellitus complication detail: with chronic kidney disease (7) Hypertension Onset Date: 12/08/16 Current Visit: No Status: Chronic Plan: Will continue home medications Qualifiers: Hypertension type: essential hypertension (8) CAD (coronary artery disease) Onset Date: 05/16/14 Current Visit: No Status: Chronic Qualifiers: Coronary Disease-Associated Artery/Lesion type: [place] artery [place] vs. transplanted heart: [place] heart Associated angina: with stable angina Qualified Code(s): I25.118 - Atherosclerotic heart disease of [place] coronary artery with other forms of angina pectoris (9) Obesity Current Visit: No Status: Chronic Qualifiers: Obesity type: due to excess calories Obesity classification: adult class 1 (BMI 30 - 34.9) Serious obesity comorbidity presence: without serious comorbidity Body mass index: BMI 32.0-32.9 Qualified Code(s): E66.09 - Other obesity due to excess calories; Z68.32 - Body mass index (BMI) 32.0-32.9, adult - Plan DVT prophylaxis: Home anticoagulation medication GI prophylaxis: None Diet: Diabetic/fluid restriction Disposition: Admit to floor. Pending symptomatic improvement - Advance Directives Does patient have a Living Will: No Does patient have a Durable POA for Healthcare: Yes Time Spent Managing Pts Care (In Minutes): 55
[2018-09-10] MEDS ORDERED: NITROGLYCERIN 0.4 MG/TAB SL SCH (19:00)
[2018-09-10] MEDS: INSULIN DEGLUDEC 10 UNIT SQ SCH (22:33)
[2018-09-10] MEDS: ATORVASTATIN 80 MG TAB PO SCH (22:35)
[2018-09-10] MEDS: METOPROLOL TAR 25 MG TAB PO SCH (22:35)
[2018-09-11 04:28] LABS: Absolute Lymphocytes (CBC) 0.9 K/uL (0.7-4.9); Basophils % 0.7 % (0-1.3); Hematocrit 33.6 % (36.0-45.0); Lymphocytes % 11.3 % (15.3-44.8); RBC Red Blood Cell Count 3.52 M/uL (3.86-4.86)
[2018-09-11 04:47] LABS: Albumin 2.9 g/dL (3.4-5.0); Bilirubin Total 0.4 mg/dL (0.2-1.0); Potassium 4.8 mmol/L (3.5-5.1); Protein, Total 6.3 g/dL (6.4-8.2)
[2018-09-11] MEDS: INSULIN -REGULAR HUMAN 50 UNIT/0.5 ML ML SQ SCH ×4 (07:30→21:35)
[2018-09-11] MEDS: ENOXAPARIN 30 MG/0.3 ML SQ SCH (08:12)
[2018-09-11] MEDS: AMIODARONE HCL 200 MG TAB PO SCH (08:13)
[2018-09-11] MEDS: CLOPIDOGREL 75 MG TABLET PO SCH (08:13)
[2018-09-11] MEDS: FOLIC ACID 1 MG TABLET PO SCH (08:13)
[2018-09-11] MEDS: VITAMIN D 5,000 UNIT CAP PO SCH (08:13)
[2018-09-11] MEDS: METOPROLOL TAR 25 MG TAB PO SCH ×2 (08:14→21:26)
[2018-09-11] MEDS: CEFTRIAXONE/SWI 1gm 1 GM/10 ML SYR IV SCH (08:22)
--- NOTE | 2018-09-11 08:27 | RAD REPORT ---
EXAM DESCRIPTION: RAD - Chest Pa And Lat (2 Views) - 09/11/2018 6:39 am CLINICAL HISTORY: SOB Chest pain. COMPARISON: Chest Single View dated 09/10/2018; Abdomen 1 View (KUB) dated 08/29/2018; Chest Single Vi ew dated 08/27/2018; Chest Single View dated 07/29/2018 FINDINGS: Moderate opacification of the left inferior hemithorax is present with a pleural effusion present. Ill-defined opacity is also noted medial right lung base with a trace right pleural effusion . Mild interstitial pulmonary edema is also present. The heart is mildly prominent size. No displaced fractures. IMPRESSION: Mild worsening in left basilar lung aeration since 09/10/2018 study.
[2018-09-11] MEDS ORDERED: CEFTRIAXONE 1 GM/NS 50 ML 1 GM/50 ML BAG IV SCH (09:00)
[2018-09-11] MEDS ORDERED: FUROSEMIDE 40 MG/4 ML VIAL IV SCH (09:00)
--- NOTE | 2018-09-11 10:42 | EKG ---
Test Date: 2018-09-10 Test Time: 09:35:35 Manager Switch: BEN MEASUREMENT RESULTS: Intervals: Rate: 101 PA: 174 QRSD: 112 QT: 390 QTc: 505 Jbphh: P: 73 PA: 174 QRS: 44 T: 110 INTERPRETIVE STATEMENTS: Sinus tachycardia Cannot rule out Anterior infarct, age undetermined Abnormal ECG Compared to ECG 07/31/2018 14:13:09 Sinus rhythm no longer present Myocardial infarct finding still present Electronically Signed On 09-11-18 10:38:45 CDT by Portillo Arteaga
--- NOTE | 2018-09-11 16:43 | PN ---
Date of Progress Note: 09/11/2018 Subjective: Patient seen and examined. Chart reviewed and case discussed with RN. Family at the [facility]. Patient states her breathing is somewhat better. Medications: List reviewed. Code Status: Full. Physical Examination: Vital Signs: Temperature 98.5, heart rate 81, blood pressure 127/57, respirations 18, O2 of 96% on 2 L via nasal cannula. General: Awake, alert, and oriented x3. Elderly female, obese. CV: S1, S2. Regular rate and rhythm. Peripheral pulses present. Respiratory: Diminished breath sounds, crackles present. No wheezing or use of accessory muscles. Gastrointestinal: Abdomen is soft, nontender, nondistended. Positive bowel sounds. No guarding or rigidity. Extremities: No clubbing, cyanosis, or significant peripheral edema. Neuro: Cranial nerves 2 through 12 intact grossly. No focal neurological deficit. Speech is normal . Skin: No rashes. Normal skin turgor. Laboratory Data: Sodium 140, potassium 4.8, chloride 104, CO2 of 29, BUN 56, creatinine 3.37, glucos e 118, calcium 8.2. WBC 8.2, H and H 11 and 33.6, platelets 203 neutrophils 73%. Urine culture 2+ E coli, gram-negative rods. Blood cultures are pending. Chest x-ray personally reviewed shows mild w orsening in the left basilar lung aeration since 09/10/2018 study. Assessment: A 78-year-old female with: 1.Acute cystitis secondary to gram-negative rods. We will continue IV antibiotics. We will follow up on final culture results with ID and sensitivity with failure of outpatient treatment. Patient wa s on Bactrim previously. 2.Acute respiratory failure with hypoxia, currently on supplemental oxygen secondary to congestive h eart failure exacerbation. We will continue O2 as needed. 3.Acute on chronic diastolic heart failure exacerbation. BNP is elevated at 42,000. We will contin ue with IV diuresis. Hold oral Bumex for now. Consult Cardiology. 4.Acute on chronic kidney disease stage 3. Kidney functions elevated above baseline. We will consu lt patient's primary retention specialist. We will continue to monitor creatinine level, avoid NSAIDs, need to balance IV fluids with her heart failure. We will hold off for now. 5.Diabetes mellitus type 2 with long-term 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 with chronic kidney disease. We will paco nue with sliding scale insulin and monitor blood glucose levels. 6.Essential hypertension stable, resume home medications as appropriate. 7.Coronary artery disease [place] artery and [place] heart without angina, stable. 8.Obesity, BMI 32.4. Plan: Consult Nephrology and Cardiology. Likely discharge in the next 24-48 hours depending on clin ical response. /LIO Voice ID: [id number] Report ID: [id number]
[2018-09-11] MEDS ORDERED: BUMETANIDE 1 MG TABLET PO SCH (17:00)
[2018-09-11] MEDS: INSULIN DEGLUDEC 10 UNIT SQ SCH ×2 (21:00→21:28)
[2018-09-11] MEDS: ATORVASTATIN 80 MG TAB PO SCH (21:26)
[2018-09-11] MEDS: DOCUSATE NA 100 MG CAP PO PRN (21:26)
[2018-09-12 04:38] LABS: Absolute Lymphocytes (CBC) 0.7 K/uL (0.7-4.9); Basophils % 1.6 % (0-1.3); Hematocrit 31.5 % (36.0-45.0); Lymphocytes % 11.5 % (15.3-44.8); RBC Red Blood Cell Count 3.31 M/uL (3.86-4.86)
[2018-09-12 04:51] LABS: Albumin 2.8 g/dL (3.4-5.0); Bilirubin Total 0.4 mg/dL (0.2-1.0); Potassium 4.3 mmol/L (3.5-5.1); Protein, Total 6.1 g/dL (6.4-8.2)
[2018-09-12] MEDS: INSULIN -REGULAR HUMAN 50 UNIT/0.5 ML ML SQ SCH ×4 (07:30→21:12)
[2018-09-12] MEDS: ENOXAPARIN 30 MG/0.3 ML SQ SCH (08:41)
[2018-09-12] MEDS: CLOPIDOGREL 75 MG TABLET PO SCH (08:42)
[2018-09-12] MEDS: AMIODARONE HCL 200 MG TAB PO SCH (08:42)
[2018-09-12] MEDS: FOLIC ACID 1 MG TABLET PO SCH (08:42)
[2018-09-12] MEDS: METOPROLOL TAR 25 MG TAB PO SCH ×2 (08:42→21:46)
[2018-09-12] MEDS: VITAMIN D 5,000 UNIT CAP PO SCH (08:42)
[2018-09-12] MEDS: CEFTRIAXONE/SWI 1gm 1 GM/10 ML SYR IV SCH (08:48)
[2018-09-12] MEDS: ASPIRIN EC 81 MG TAB PO SCH (08:50)
[2018-09-12] MEDS ORDERED: FUROSEMIDE 40 MG/4 ML VIAL IV SCH (09:00)
--- NOTE | 2018-09-12 10:32 | CON ---
Reason For Consultation: Chest pain and dyspnea. History Of Present Illness: Ms. Gonzalez was found to have severe coronary heart disease and renal i nsufficiency. She had a cardiac cath here on July 31, 2018. The creatinine then was 2.2. Dr. Mike gustafson did THE heart catheterization, recommended bypass surgery. She was transferred to [facility]. Th ere, because of a multitude of problems, the cardiology team decided to shift gears and do stent proc edures. Apparently 2 separate days, she had stents. Both times, there was an Impella pump to help, so in the last 6 weeks, she has had 3 cardiac cath procedures. Her renal function is now quite a bit worse. She came to the hospital with a chief complaint of being out of breath and feeling tight in the chest. When she went home from [facility] in [place], she had evidence of urinary infection, tri ed to treat it with Bactrim without any success, and now, she is on Rocephin 1 g every 24 hours and s eems to be doing well. Allergies: SHE REPORTS ALLERGIES TO X-RAY CONTRAST MATERIAL, BENADRYL, MORPHINE, SULFA, SULFAMETHOXA ZOLE, TRIMETHOPRIM, LEVAQUIN, METOCLOPRAMIDE, PROMETHAZINE, AND MOST NARCOTICS CAUSE NAUSEA. Physical Examination: General: She is 5 feet 1 inch, 172 pounds. She appears to be in mild respiratory distress. She is able to speak in complete sentences. Lungs: Basilar crackles. Heart: Seems to be within normal limits. Abdomen: Soft. Extremities: Absent distal pulses. Skin: Warm and appears to be adequately perfused. Medications: Present medications are amiodarone, atorvastatin, Rocephin, cholecalciferol, Plavix, do cusate, Lovenox, folic acid, Lasix 40 b.i.d., insulin, metoprolol, nitroglycerin, sodium chloride. Laboratory Data: Since being in the hospital, her creatinine is 3.37 to 3.39. Electrolytes normal. Troponin level was 0.32 and terminal proBNP was 42,782. Impression: The patient probably needs more diuresis. Her lungs do show pulmonary crackles. Chest x-ray looks like pulmonary edema. I doubt if 40 mg of Lasix IV is going to cause much of a diuresis. It does not seem to cause much of a diuresis at this point. I would suggest we double it and Nephr ology's input will be very important very likely with all the x-ray contrast material she has had, wo rsening renal function, poor cardiac function, that she will probably end up being a dialysis patient . Thank you very much for your kind referral of Ms. Gonzalez. I will follow her with you. BOB Voice ID: [id number] Report ID: [id number]
--- NOTE | 2018-09-12 11:04 | ECHO ---
HEIGHT: 5 ft 1 in WEIGHT: 172 lb 8 oz DATE OF STUDY: 09/12/[address]: Solomon Rothman MD 2-DIMENSIONAL: YES M.MODE: YES DOPPLER: YES COLOR FLOW: YES TDS: NO PORTABLE: NO DEFINITY: NO BUBBLE STUDY: NO DIAGNOSIS: CONGESTIVE HEART FAILURE CARDIAC HISTORY: CATHERIZATION: YES SURGERY: NO PROSTHETIC VALVE: NO PACEMAKER: NO MEASUREMENTS (cm) DIASTOLIC (NORMALS) SYSTOLIC (NORMALS) IVSd 1.3 (0.6-1.2) LA Diam 2.7 (1.9-4.0) LVEF 50-55% LVIDd 4.1 (3.5-5.7) LVIDs 2.7 (2.0-3.5) %FS 34% LVPWd 1.3 (0.6-1.2) Ao Diam 2.5 (2.0-3.7) 2 DIMENSIONAL ASSESSMENT: RIGHT ATRIUM: NORMAL LEFT ATRIUM: DILATED RIGHT VENTRICLE: NORMAL LEFT VENTRICLE: LEFT VENTRICULAR HYPERTROPHY TRICUSPID VALVE: NORMAL MITRAL VALVE: MILD LEAFLET CALCIFICATION PULMONIC VALVE: NORMAL AORTIC VALVE: 3 LEAFLETS PERICARDIAL EFFUSION: NONE AORTIC ROOT: NORMAL LEFT VENTRICULAR WALL MOTION: NORMAL. DOPPLER/COLOR FLOW: MILD MITRAL REGURGITATION. IMPAIRED LEFT VENTRICULAR RELAXATION. COMMENTS: NORMAL LEFT VENTRICULAR EJECTION FRACTION. LEFT VENTRICULAR HYPERTROPHY. MILD MITRAL REGURGITATION. IMPAIRED LEFT VENTRICULAR RELAXATION. DILATED LEFT ATRIUM. MILD MITRAL LEAFLET CALCIFICATION. NO PERICARDIAL EFFUSION. TECHNOLOGIST: URIEL HUMPHREY [facility]
[2018-09-12] MEDS: CEFEPIME/SWI 1gm 10 ML IV SCH (11:39)
--- NOTE | 2018-09-12 17:08 | PN ---
Date of Progress Note: 09/12/2018 Subjective: Patient seen and examined. Chart reviewed and case discussed with RN and Dr. King. The patient initially had refused her Lasix as she was concerned about her kidneys, wanted to have [facility] design editor's opinion first. Daughter at the bedside. Treatment plan explained. All questions a nswered. They understand that the patient has fluid overload. She needs diuretics, her kidney funct ion is being monitored closely. Medications: List reviewed. Physical Examination: Vital Signs: Temperature 98.3, heart rate 102, blood pressure 153/58, respirations 15, O2 of 92%on 2 L via nasal cannula. Her daily weight was 172 pounds, 8 ounces up from 171 pounds 6 ounces. Fluid balance is -240. General: Awake, alert, and oriented x3. Elderly female, obese, in mild respiratory distress. CV: S1, S2. Regular rate and rhythm. Peripheral pulses present. Respiratory: Diminished breath sounds some crackles heard. No wheezing or stridor. Gastrointestinal: Abdomen is soft, nontender, nondistended. Positive bowel sounds. No guarding or rigidity. Extremities: No clubbing, cyanosis. No pedal edema. Neuro: Cranial nerves 2 through 12 intact grossly. No focal neurological deficit. Speech is normal . Skin: No rashes. Normal skin turgor. Laboratory Data: Sodium 138, potassium 4.3, chloride 104, CO2 of 31, BUN 58, creatinine 3.29, glucos e 113, calcium 8.5, albumin 2.8. WBC 6.4, H and H 10.3 and 31.5, platelets 208, neutrophils 69%. Ur ine culture growing out Enterobacter cloacae resistant to Rocephin, however, sensitive to cefepime. Blood cultures, no growth to date. Echocardiogram, EF of 50% to 55%; left ventricular hypertrophy, m ild mitral regurgitation, impaired left ventricular relaxation, dilated left atrium, mild mitral leaf let calcification, no pericardial effusion. Assessment And Plan: A 78-year-old female with: 1.Acute cystitis secondary to Enterobacter cloacae, we will adjust IV antibiotics to cefepime as Uri ephin is resistant, improving. 2.Acute respiratory failure with hypoxia secondary to congestive heart failure exacerbation. Patien t continues to need supplemental oxygenation. Chest x-ray shows worsening heart failure. 3.Acute on chronic diastolic heart failure exacerbation. Echocardiogram shows EF 50% to 55%. Appre tan Rothman' input. IV Lasix dose has been doubled as she is not really diuresing in fact has g ained 1 pound since being in the hospital. Patient and daughter are very severely concerned about he r kidney function, which was recently elevated up on top of her chronic kidney dysfunction due to rec ent contrast from multiple cardiac catheterizations. Nephrology is also on board. We will continue to monitor I's and O's strictly. Continue fluid restriction and weight daily. 4.Acute on chronic kidney disease stage 3. Kidney function is stable at around 3.3. Recent increas e in kidney function due to contrast. Spoke with Dr. King. His partner is covering today. We wi ll reach out to Dr. Coleman. Again, we will continue to monitor creatinine level, avoid NSAIDs. No IV fluids due to congestive heart failure. 5.Diabetes mellitus type 2 with long-term 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 with chronic kidney disease. We will paco nue to monitor blood glucose levels and continue sliding scale insulin. 6.Essential hypertension, stable. 7.Coronary artery disease [place] artery and [place] heart without angina, stable. 8.Obesity, body mass index is 32. Plan: Continue diuretics. Follow up with urine culture. Likely discharge in the next 48-72 hours d epending on clinical response. Patient needs to be monitored carefully in order to avoid worsening a nd kidney function and need for possible dialysis. SA/MODL Voice ID: [id number] Report ID: [id number]
--- NOTE | 2018-09-12 17:11 | CON ---
Date of Consultation: 09/12/2018 History Of Present Illness: Ms. Gonzalez is a 78-year-old female with past medical history significa nt for type 2 diabetes and coronary artery disease, was recently admitted to [facility] after she had a ozj-ZJ-tebbojree [place], ended up having 7 stents placed. In the interim also, she developed r enal failure and congestive heart failure requiring 2 sessions of dialysis. She was transferred to [facility] here at [facility], underwent rehab, and was discharged about a week ago. However, she deve loped some urinary infection and was prescribed Bactrim by her primary care physician. However, she started having nausea, vomiting, shortness of breath and hence presented back to the hospital. She w as found to have mild congestive heart failure, worsening of her vsdil-al-wxixwed renal insufficiency with creatinine increasing to 3.3 from 2.7 at the time of discharge. Hence, she has been admitted t o the hospital for further evaluation, started on IV antibiotics, and also got a dose of IV Lasix tod ay. 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 Family History: Significant for history of cancer in her father; mother with history of stroke and c ancer; and brother with history of heart disease, hypertension, and diabetes. Social History: She lives at home with her family. No history of smoking, alcohol, or drug use repo rted. Review of Systems: Positive for mild shortness of breath. Denies any chest pain. Denies any abdominal pain. Denies an y lower extremity edema. Burning with urination is improving at this time. She is able to tolerate her p.o. intake and denies any nausea or vomiting at this time. All other review of systems is negat diandra. Physical Examination: Vital Signs: Showing temperature of 98.3, pulse rate of 102, respiratory rate of 15, and blood press ure 153/58. General: She appears in no acute distress. Lungs: Clear to auscultation. Neck: No JVD was noted. Heart: Auscultation of the heart revealed regular rate and rhythm. Abdomen: Soft and nontender. Extremities: Do not show any evidence of edema. Laboratory Data: At this time is showing a sodium of 138; potassium of 4.3; chloride of 104; bicarb of 31; BUN of 58; and creatinine of 3.2, which is worse from her baseline creatinine of 2.7 at the ti me of discharge. Her albumin was low at 2.8. CBC is showing stable hemoglobin, hematocrit, and plat elet count, and no leukocytosis was noted. She also has history of urinary tract infection with urine culture showing Enterobacter cloacae, whic h is resistant to ceftriaxone and Bactrim. Current Medications: Have been reviewed in detail. Impression: 1.Lyznh-ui-jxauzwx renal insufficiency, likely related to Bactrim use versus cardiorenal syndrome, c urrently with slight worsening of renal function compared to her baseline. She is otherwise doing ok ay, and hopefully, her renal function will improve back to baseline at this time. 2.Urinary tract infection secondary to enterobacter. Patient has been switched over to cefepime. W e will continue to monitor and follow up on results. 3.Congestive heart failure. Chest x-ray was consistent with mild CHF, and chest x-ray was reviewed in detail. The patient received a dose of Lasix and she seems comfortable. Clinically, no signs of volume overload. Hence, I will put her back on Bumex 1 mg p.o. b.i.d. and monitor her volume status closely. 4.Type 2 diabetes, remains on insulin. 5.Hypertension, stable. 6.Recent coronary artery disease with stent placement. Remains on aspirin and Plavix. Continue all other medications and plan of care. Plan was discussed with her family at bedside and all questions were answered. Please do not hesitat e to call us with any questions or concerns. VV/MODL Voice ID: [id number] Report ID: [id number]
[2018-09-12] MEDS ORDERED: ONDANSETRON 4 MG/2 ML VIAL IV PRN (19:42)
[2018-09-12] MEDS: INSULIN DEGLUDEC 10 UNIT SQ SCH (21:00)
[2018-09-12] MEDS: BUMETANIDE 1 MG TABLET PO SCH (21:45)
[2018-09-12] MEDS: ATORVASTATIN 80 MG TAB PO SCH (21:46)
[2018-09-13 04:24] LABS: Absolute Lymphocytes (CBC) 1.2 K/uL (0.7-4.9); Basophils % 1.3 % (0-1.3); Hematocrit 34.6 % (36.0-45.0); Lymphocytes % 23.3 % (15.3-44.8); MPV 8.9 fL (7.6-11.3); RBC Red Blood Cell Count 3.62 M/uL (3.86-4.86)
[2018-09-13 04:45] LABS: Bilirubin Total 0.3 mg/dL (0.2-1.0); Potassium 4.3 mmol/L (3.5-5.1)
[2018-09-13 04:46] LABS: Albumin 2.9 g/dL (3.4-5.0); Magnesium 2.3 mg/dL (1.8-2.4); Phosphorus 3.9 mg/dL (2.5-4.9); Protein, Total 6.6 g/dL (6.4-8.2)
[2018-09-13] MEDS: INSULIN -REGULAR HUMAN 50 UNIT/0.5 ML ML SQ SCH ×4 (07:30→21:41)
[2018-09-13] MEDS: CEFEPIME/SWI 1gm 10 ML IV SCH (08:57)
[2018-09-13] MEDS: ENOXAPARIN 30 MG/0.3 ML SQ SCH (08:57)
[2018-09-13] MEDS: METOPROLOL TAR 25 MG TAB PO SCH ×2 (08:58→21:34)
[2018-09-13] MEDS: FOLIC ACID 1 MG TABLET PO SCH (08:58)
[2018-09-13] MEDS: BUMETANIDE 1 MG TABLET PO SCH ×2 (08:58→21:33)
[2018-09-13] MEDS: CLOPIDOGREL 75 MG TABLET PO SCH (08:58)
[2018-09-13] MEDS: VITAMIN D 5,000 UNIT CAP PO SCH (08:58)
[2018-09-13] MEDS: ASPIRIN EC 81 MG TAB PO SCH (08:59)
[2018-09-13] MEDS: AMIODARONE HCL 200 MG TAB PO SCH (09:02)
--- NOTE | 2018-09-13 17:57 | PN ---
Ms. Gonzalez was admitted on 09/10/2018. Dr. Rothman saw her yesterday for congestive heart failure. She had elevated creatinine that has improved on Bumex 1 p.o. b.i.d. Her worsening renal function w as thought secondary to Bactrim versus cardiorenal. However, her echocardiogram showed an ejection f raction of 50% to 55%, which is the best we have seen on her for many years. She is feeling more com fortable today. No complaint. She remains in sinus rhythm. I agreed with her present regimen. We will continue to follow her as needed. ALEJANDRO/LIO Voice ID: [id number] Report ID: [id number]
--- NOTE | 2018-09-13 18:18 | PN ---
Date of Progress Note: 09/13/2018 Subjective: Patient seen and examined. Chart reviewed and case discussed with RN and Dr. King. Patient states she is feeling better. Her diuresis is going well. Medications: List reviewed. Physical Examination: Vital Signs: Temperature 97.7, heart rate 87, blood pressure 125/60, respirations 20, O2 95% on 2 L via nasal cannula. General: Awake, alert, and oriented x3. Elderly female, obese. CV: S1, S2. Peripheral pulses present. Respiratory: Diminished breath sounds, however, improved from yesterday. No wheezing or stridor. Gastrointestinal: Abdomen is soft, nontender, nondistended. Positive bowel sounds. No guarding or rigidity. Extremities: No clubbing, cyanosis, or edema. Neurologic: Nonfocal. Laboratory Data: Sodium 139, potassium 4.3, chloride 103, CO2 of 31, BUN 56, creatinine 3.11, glucos e 195, calcium 8.3, phosphorus 3.9, magnesium 2.3, albumin 2.9. WBC 5.2, H and H 11.3 and 34.6, plat elets 218, neutrophils 56%. Urine culture growing out Enterobacter cloacae. Assessment And Plan: A 78-year-old female with: 1.Acute cystitis secondary to Enterobacter cloacae. Continue with IV cefepime, improving. Patient will be transitioned to oral antibiotics on discharge. 2.Acute respiratory failure with hypoxia secondary to congestive heart failure exacerbation. Loki mckeon is still on supplemental oxygen, room air saturations were 86%. Patient will need to be set up wit h home O2. We will repeat chest x-ray in a.m. 3.Acute on chronic diastolic heart failure exacerbation, improving. Patient is diuresing, was connor ed over to Bumex yesterday. We will continue congestive heart failure guidelines. Monitor I's and O 's, free fluid restriction. Monitor kidney function. 4.Acute on chronic kidney disease stage 3. Creatinine is improving, currently at 3.1, may be due to recent use of Bactrim and contrast. Nephrology on board. We will continue to monitor. Avoid NSAID s. 5.Diabetes mellitus type 2 with long-term 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 with chronic kidney disease, stable. We wi ll continue with Accu-Cheks and sliding scale insulin. 6.Essential hypertension, stable. 7.Coronary artery disease [place] artery and [place] heart without angina, stable. Continue medicatio ns. 8.Obesity, BMI 32. Plan: Set up home O2. Discharge once oxygen has been set up. /LIO Voice ID: [id number] Report ID: [id number]
--- NOTE | 2018-09-13 18:21 | P.PN ---
Date of Service: 09/13/18 Vital Signs Temp Pulse Resp BP Pulse Ox 98.1 F 82 20 137/73 97 09/13/18 16:00 09/13/18 16:00 09/13/18 16:00 09/13/18 16:00 09/13/18 16:00 Medications Amiodarone HCl (Cordarone Tab) 200 mg PO DAILY JL Stop: 10/11/18 09:01 Last Admin: 09/13/18 09:02 Dose: 200 mg Aspirin (Aspirin Ec) 81 mg PO DAILY JL Stop: 10/12/18 09:01 Last Admin: 09/13/18 08:59 Dose: 81 mg Atorvastatin Calcium (Lipitor) 80 mg PO BEDTIME JL Stop: 10/10/18 21:01 Last Admin: 09/12/18 21:46 Dose: 80 mg Bumetanide (Bumex) 1 mg PO BID JL Stop: 10/12/18 21:01 Last Admin: 09/13/18 08:58 Dose: 1 mg Cholecalciferol (Vitamin D 5,000 Iu Cap) 5,000 unit PO DAILY JL Stop: 10/11/18 09:01 Last Admin: 09/13/18 08:58 Dose: 5,000 unit Clopidogrel Bisulfate (Plavix) 75 mg PO DAILY JL Stop: 10/11/18 09:01 Last Admin: 09/13/18 08:58 Dose: 75 mg Docusate Sodium (Colace Cap) 100 mg PO BID PRN PRN Reason: CONSTIPATION Stop: 10/11/18 21:01 Last Admin: 09/11/18 21:26 Dose: 100 mg Enoxaparin Sodium (Lovenox 30 Mg Inj) 30 mg SQ DAILY JL Stop: 10/11/18 09:01 Last Admin: 09/13/18 08:57 Dose: 30 mg Folic Acid (Folic Acid) 1 mg PO DAILY JL Stop: 10/11/18 09:01 Last Admin: 09/13/18 08:58 Dose: 1 mg Home Med (Insulin Degludec [Tresiba Flextouch U-200]) 10 unit SQ BEDTIME JL Stop: 10/10/18 21:01 Last Admin: 09/12/18 21:00 Dose: Not Given Cefepime HCl (Maxipime 1 Gm/10 Ml Ivp) 10 mls @ 120 mls/hr IV DAILY JL Stop: 10/12/18 11:01 Last Admin: 09/13/18 08:57 Dose: 10 mls Insulin Human Regular (Novolin -R) 0 unit SQ ACHS [facility]; Protocol Stop: 10/10/18 16:31 Last Admin: 09/13/18 16:30 Dose: 4 unit Metoprolol Tartrate (Lopressor) 25 mg PO BID [facility] Stop: 10/10/18 21:01 Last Admin: 09/13/18 08:58 Dose: 25 mg Nitroglycerin (Nitrostat) 0.4 mg SL SEECOM [facility] Stop: 10/10/18 19:01 Ondansetron HCl (Zofran) 4 mg IV Q6H PRN PRN Reason: NAUSEA / VOMITING Stop: 10/12/18 19:43 Last Admin: 09/12/18 21:12 Dose: 4 mg Sodium Chloride (Normal Saline Flush) 10 ml IV BID [facility] Stop: 10/10/18 21:01 Last Admin: 09/13/18 08:59 Dose: 10 ml Microbiology Results 09/10/18 10:26 Clean Catch Urine [place] Count - Final BETWEEN 10,000 & 100,000 CFU/ML 09/10/18 10:26 Clean Catch Urine - Final Enterobacter Cloacae 09/10/18 09:30 Blood - Blood Aerobic Blood Culture - Preliminary No growth in 24 hours. 09/10/18 09:30 Blood - Blood Anaerobic Blood Culture - Preliminary No growth in 24 hours. 09/10/18 09:14 Blood - Blood Aerobic Blood Culture - Preliminary No growth in 24 hours. 09/10/18 09:14 Blood - Blood Anaerobic Blood Culture - Preliminary No growth in 24 hours. Assessment/ Plan: Nephrology CPS stable without CP or SOB. No acute events overnight. Feeling better. Still requiring Oxygen. Vitals, medications, blood work and imaging reviewed in the chart. NAD. MMM. Neck supple. CTA. RRR. Soft Abd. No C/C/E. No rash. AAO. Normal Speech. Obese. Echocardiogram [id number]: NORMAL LEFT VENTRICULAR EJECTION FRACTION. LEFT VENTRICULAR HYPERTROPHY. MILD MITRAL REGURGITATION. IMPAIRED LEFT VENTRICULAR RELAXATION. DILATED LEFT ATRIUM. MILD MITRAL LEAFLET CALCIFICATION. NO PERICARDIAL EFFUSION. A/ OTIS. Hyponatremia. CKD IV with proteinuria. Diastolic CHF, A/C. DM II with CKD. Anemia in chronic illness. Moderate protein malnutrition. Acute cystitis. Enterobacter cloacae. P/ Continue current POC and Medications. AM labs. Daily weight. No NSAIDs. Continue bumetanide. Continue abx. Wean Oxygen as tolerated. Case disccused with Dr. Muse.
[2018-09-13] MEDS: INSULIN DEGLUDEC 10 UNIT SQ SCH (21:00)
[2018-09-13] MEDS: ATORVASTATIN 80 MG TAB PO SCH (21:34)
[2018-09-14] MEDS: INSULIN -REGULAR HUMAN 50 UNIT/0.5 ML ML SQ SCH ×4 (07:30→21:14)
--- NOTE | 2018-09-14 09:18 | RAD REPORT ---
EXAM DESCRIPTION: Axel Single View09/14/2018 6:08 am CLINICAL HISTORY: Chest pain COMPARISON: September 11, 2018 FINDINGS: Left basilar opacity has partially resolved. Small right pleural effusion Partial resolution in the bilateral pulmonary opacities. The heart remains enlarged IMPRESSION: Partial resolution in bilateral pulmonary opacities likely representing pulmonary edema. Mild interstitial pulmonary edema is present. Improvement in a left basilar opacity which may represent atelectasis or infiltrate. Small right and small left pleural effusion is suspected
[2018-09-14] MEDS: CEFEPIME/SWI 1gm 10 ML IV SCH (09:42)
[2018-09-14] MEDS: FOLIC ACID 1 MG TABLET PO SCH (09:45)
[2018-09-14] MEDS: CLOPIDOGREL 75 MG TABLET PO SCH (09:45)
[2018-09-14] MEDS: METOPROLOL TAR 25 MG TAB PO SCH ×2 (09:45→21:12)
[2018-09-14] MEDS: ASPIRIN EC 81 MG TAB PO SCH (09:46)
[2018-09-14] MEDS: AMIODARONE HCL 200 MG TAB PO SCH (09:46)
[2018-09-14] MEDS: BUMETANIDE 1 MG TABLET PO SCH ×2 (09:46→21:12)
[2018-09-14] MEDS: VITAMIN D 5,000 UNIT CAP PO SCH (09:46)
[2018-09-14] MEDS: ENOXAPARIN 30 MG/0.3 ML SQ SCH (09:47)
--- NOTE | 2018-09-14 11:24 | PN ---
Date of Progress Note: 09/14/2018 Subjective: Ms. Gonzalez was admitted to the hospital following a UTI, was placed on Bactrim. Had w orsening renal function, went into pulmonary edema. Echocardiogram showed ejection fraction of 50% t o 55%, which is the best she has ever had. She has history of coronary artery disease, status post s tents, was wearing a LifeVest for approximately 5 weeks that has been discontinued without any eviden ce of arrhythmia. While she is here, her creatinine has improved. Her pulmonary status has improved . She really has no rales, no edema. Denies shortness of breath. Just complains of generalized fat igue. As far as I am concerned, we should continue her present regimen. She is on Bumex 1 mg 1 p.o. b.i.d. I will leave her discharge up to her primary care physician and Nephrology. Dr. Coleman is seeing her. We will see her in the office soon. ALEJANDRO/LIO Voice ID: [id number] Report ID: [id number]
--- NOTE | 2018-09-14 14:27 | PN ---
Date of Progress Note: 09/14/2018 Subjective: Patient seen and examined. Chart reviewed and case discussed with RN and Dr. King. Patient complaining of fatigue. Continues to be hypoxic, did have some PVCs last night. Room air sa turations this morning 87%. Medications: List reviewed. Physical Examination: Vital Signs: Temperature 97.7, heart rate 83, blood pressure 158/67, respirations 20, O2 of 95% on 2 L via nasal cannula. General: Awake, alert, oriented x3, in some mild distress. Elderly female, obese. CV: S1, S2. Regular rate and rhythm. Peripheral pulses present. Respiratory: Moving air well. No wheezing. Some diminished breath sounds at the base. Gastrointestinal: Soft, nontender, nondistended. Positive bowel sounds. No guarding or rigidity. Extremities: No clubbing, cyanosis, or edema. Neurologic: Nonfocal. Laboratory Data: Glucose level is 120. Urine culture growing out Enterobacter. Blood cultures nega tive to date. Chest x-ray, personally reviewed, shows partial resolution in bilateral pulmonary opac ities likely representing pulmonary edema. Mild interstitial pulmonary edema is present and improvem ent in the left basilar opacity, which may represent atelectasis or infiltrate. Small right and smal l left pleural effusion are suspected. Assessment And Plan: A 78-year-old female with: 1.Acute cystitis secondary to Enterobacter. We will continue with IV cefepime improving. 2.Acute respiratory failure with hypoxia secondary to congestive heart failure. Patient continues t o be hypoxic despite some minimal improvement in her chest x-ray. We will check D-dimer to rule out possibility of PE. 3.Acute on chronic diastolic heart failure exacerbation, improving, diuresing well. Continue with f ree fluid restriction. Monitor I's and O's. 4.Acute on chronic kidney disease stage 3. Creatinine is pending at this time secondary to use of B actrim. Appreciate Nephrology input. Continue to avoid NSAIDs and monitor closely. 5.Diabetes mellitus type 2 with long-term 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 with chronic kidney disease, stable. 6.Essential hypertension. 7.Coronary artery disease, [place] artery, [place] heart, without angina stable. 8.Obesity, BMI 32. Plan: If D-dimer is elevated, we will obtain V/Q scan to rule out PE as the patient unable to tolera te contrast due to her elevated creatinine. SA/MODL Voice ID: [id number] Report ID: [id number]
[2018-09-14] MEDS ORDERED: LORazepam 2 MG/ML VIAL IV ONE (15:05)
[2018-09-14] MEDS ORDERED: ENOXAPARIN 60 MG/0.6 ML SQ ONE (20:00)
[2018-09-14] MEDS: INSULIN DEGLUDEC 10 UNIT SQ SCH (21:00)
[2018-09-14] MEDS: DOCUSATE NA 100 MG CAP PO PRN (21:12)
[2018-09-14] MEDS: ATORVASTATIN 80 MG TAB PO SCH (21:26)
[2018-09-15 05:56] LABS: Absolute Lymphocytes (CBC) 1.4 K/uL (0.7-4.9); Basophils % 1.5 % (0-1.3); Hematocrit 35.1 % (36.0-45.0); Lymphocytes % 26.8 % (15.3-44.8); MPV 8.1 fL (7.6-11.3); RBC Red Blood Cell Count 3.73 M/uL (3.86-4.86)
[2018-09-15 06:18] LABS: Albumin 2.8 g/dL (3.4-5.0); Bilirubin Total 0.5 mg/dL (0.2-1.0); Potassium 4.4 mmol/L (3.5-5.1); Protein, Total 6.2 g/dL (6.4-8.2)
[2018-09-15] MEDS: INSULIN -REGULAR HUMAN 50 UNIT/0.5 ML ML SQ SCH ×3 (07:30→16:46)
--- NOTE | 2018-09-15 08:46 | P.PN ---
Date of Service: 09/14/18 Vital Signs Temp Pulse Resp BP Pulse Ox 98.7 F 76 18 118/57 L 100 09/15/18 04:00 09/15/18 04:00 09/15/18 04:00 09/15/18 04:00 09/15/18 04:00 Medications Amiodarone HCl (Cordarone Tab) 200 mg PO DAILY JL Stop: 10/11/18 09:01 Last Admin: 09/14/18 09:46 Dose: 200 mg Aspirin (Aspirin Ec) 81 mg PO DAILY JL Stop: 10/12/18 09:01 Last Admin: 09/14/18 09:46 Dose: 81 mg Atorvastatin Calcium (Lipitor) 80 mg PO BEDTIME JL Stop: 10/10/18 21:01 Last Admin: 09/14/18 21:26 Dose: 80 mg Bumetanide (Bumex) 1 mg PO BID JL Stop: 10/12/18 21:01 Last Admin: 09/14/18 21:12 Dose: 1 mg Cholecalciferol (Vitamin D 5,000 Iu Cap) 5,000 unit PO DAILY JL Stop: 10/11/18 09:01 Last Admin: 09/14/18 09:46 Dose: 5,000 unit Clopidogrel Bisulfate (Plavix) 75 mg PO DAILY JL Stop: 10/11/18 09:01 Last Admin: 09/14/18 09:45 Dose: 75 mg Docusate Sodium (Colace Cap) 100 mg PO BID PRN PRN Reason: CONSTIPATION Stop: 10/11/18 21:01 Last Admin: 09/14/18 21:12 Dose: 100 mg Enoxaparin Sodium (Lovenox 80 Mg Inj) 80 mg 1 mg/kg (80 mg) SQ Q24H JL Stop: 10/15/18 19:01 Folic Acid (Folic Acid) 1 mg PO DAILY JL Stop: 10/11/18 09:01 Last Admin: 09/14/18 09:45 Dose: 1 mg Home Med (Insulin Degludec [Tresiba Flextouch U-200]) 10 unit SQ BEDTIME JL Stop: 10/10/18 21:01 Last Admin: 09/14/18 21:00 Dose: Not Given Cefepime HCl (Maxipime 1 Gm/10 Ml Ivp) 10 mls @ 120 mls/hr IV DAILY JL Stop: 10/12/18 11:01 Last Admin: 09/14/18 09:42 Dose: 10 mls Insulin Human Regular (Novolin -R) 0 unit SQ ACHS [facility]; Protocol Stop: 10/10/18 16:31 Last Admin: 09/15/18 07:30 Dose: Not Given Metoprolol Tartrate (Lopressor) 25 mg PO BID [facility] Stop: 10/10/18 21:01 Last Admin: 09/14/18 21:12 Dose: 25 mg Nitroglycerin (Nitrostat) 0.4 mg SL SEECOM [facility] Stop: 10/10/18 19:01 Ondansetron HCl (Zofran) 4 mg IV Q6H PRN PRN Reason: NAUSEA / VOMITING Stop: 10/12/18 19:43 Last Admin: 09/12/18 21:12 Dose: 4 mg Sodium Chloride (Normal Saline Flush) 10 ml IV BID [facility] Stop: 10/10/18 21:01 Last Admin: 09/14/18 21:00 Dose: 10 ml Microbiology Results 09/10/18 10:26 Clean Catch Urine [place] Count - Final BETWEEN 10,000 & 100,000 CFU/ML 09/10/18 10:26 Clean Catch Urine - Final Enterobacter Cloacae 09/10/18 09:30 Blood - Blood Aerobic Blood Culture - Preliminary No growth in 24 hours. 09/10/18 09:30 Blood - Blood Anaerobic Blood Culture - Preliminary No growth in 24 hours. 09/10/18 09:14 Blood - Blood Aerobic Blood Culture - Preliminary No growth in 24 hours. 09/10/18 09:14 Blood - Blood Anaerobic Blood Culture - Preliminary No growth in 24 hours. Assessment/ Plan: Nephrology CPS stable without CP or SOB. Reports an episode of chest fatigue and palpitations overnight with associated anxiety. More anxious today. Still requiring Oxygen. Vitals, medications, blood work and imaging reviewed in the chart. NAD. MMM. Neck supple. CTA. RRR. Soft Abd. No C/C/E. No rash. AAO. Normal Speech. Obese. Echocardiogram [id number]: NORMAL LEFT VENTRICULAR EJECTION FRACTION. LEFT VENTRICULAR HYPERTROPHY. MILD MITRAL REGURGITATION. IMPAIRED LEFT VENTRICULAR RELAXATION. DILATED LEFT ATRIUM. MILD MITRAL LEAFLET CALCIFICATION. NO PERICARDIAL EFFUSION. A/ OTIS. Hyponatremia. CKD IV with proteinuria. Diastolic CHF, A/C. DM II with CKD. Anemia in chronic illness. Moderate protein malnutrition. Acute cystitis. Enterobacter cloacae. P/ Continue current POC and Medications. AM labs. Daily weight. No NSAIDs. Continue bumetanide. Continue abx. Wean Oxygen as tolerated. Case disccused with Dr. Muse. Plan to evaluate for possible PE.
[2018-09-15] MEDS: BUMETANIDE 1 MG TABLET PO SCH (09:18)
[2018-09-15] MEDS: CEFEPIME/SWI 1gm 10 ML IV SCH (09:18)
[2018-09-15] MEDS: METOPROLOL TAR 25 MG TAB PO SCH (09:19)
[2018-09-15] MEDS: AMIODARONE HCL 200 MG TAB PO SCH (09:19)
[2018-09-15] MEDS: VITAMIN D 5,000 UNIT CAP PO SCH (09:19)
[2018-09-15] MEDS: CLOPIDOGREL 75 MG TABLET PO SCH (09:19)
[2018-09-15] MEDS: ASPIRIN EC 81 MG TAB PO SCH (09:19)
[2018-09-15] MEDS: FOLIC ACID 1 MG TABLET PO SCH (09:19)
[2018-09-15] MEDS ORDERED: LORazepam 2 MG/ML VIAL IV ONE (11:00)
--- NOTE | 2018-09-15 11:19 | RAD REPORT ---
EXAM DESCRIPTION: NM - Vent Perfusion VQ Scan - 09/15/2018 11:06 am CLINICAL HISTORY: Shortness of breath COMPARISON: Ventilation perfusion scan 2013 Chest x-ray September 14, 2018 TECHNIQUE: 19 Mci Xe133 was administered by inhalation. First breath, equilibrium, and washout images of the luis ngs obtained 7.1 millicuries Technetium-99 MAA was administered intravenously. Anterior, posterior, lateral and ob lique views of the lungs were taken. FINDINGS: The ventilation images demonstrate moderate defect of radiotracer activity within the left lung base. This is matched on perfusion sequences. Mildly inhomogeneous radiotracer uptake involves the remainder of the lungs matched on ventilation an d perfusion sequences Defect within the left major fissure probably indicates small amount of pleural effusion No mismatched segmental or lobar perfusion defects are seen. IMPRESSION: Patient has a low probability for a pulmonary embolus
--- NOTE | 2018-09-15 12:11 | PN ---
Ms. Gonzalez seems to be doing okay. An attempt was made to do a ventilation perfusion lung scan. S he could not do it. I am not sure if it is rescheduled or not. To me, Ms. Gonzalez looks to be stab le enough to be discharged home fairly soon if not today. SABI/LIO Voice ID: [id number] Report ID: [id number]
--- NOTE | 2018-09-15 12:12 | P.CNS ---
Date of Consult: 09/15/18 Chief Complaint: Hypoxemia possible pulmonary embolism History of Present Illness: Patient is 78 years of age was recently discharged from [place] has some stents placed patient was treated with Bactrim probably developed an allergic reaction became more short of breath this was for urinary tract admission no prior history of pulmonary problems is never smoked was admitted from the emergency room D-dimer was also elevated V/Q scan showed low probability for pulmonary embolus patient has chronic renal insufficiency Allergies iodine [Iodine] Allergy (Severe, Verified 09/10/18 15:14) throat swelling diphenhydramine HCl [From Benadryl] Allergy (Verified 09/10/18 15:14) Anaphylaxis morphine Allergy (Verified 09/10/18 15:14) Unknown Sulfa (Sulfonamide Antibiotics) Allergy (Verified 09/10/18 15:14) Unknown sulfamethoxazole [From Bactrim] Allergy (Verified 09/10/18 15:14) Anaphylaxis trimethoprim [From Bactrim] Allergy (Verified 09/10/18 15:14) Anaphylaxis levofloxacin [From Levaquin] Adverse Reaction (Severe, Verified 09/10/18 15:14) vomiting metoclopramide [From Reglan] Adverse Reaction (Verified 09/10/18 15:14) Nausea/Vomiting promethazine [From Phenergan] Adverse Reaction (Verified 09/10/18 15:14) Nausea/Vomiting Narcotics Allergy (Severe, Uncoded 09/10/18 15:14) Anaphylaxis Home Medications: Amiodarone HCl [Cordarone*] 200 mg PO DAILY 08/22/18 Atorvastatin Calcium [Lipitor] 80 mg PO BEDTIME 08/22/18 Bumetanide [Bumex*] 0.5 tab PO SEECOM 08/22/18 Clopidogrel Bisulfate [Plavix*] 75 mg PO DAILY 08/22/18 Folic Acid 1 mg PO DAILY 08/22/18 Metoprolol Tartrate [Lopressor*] 25 mg PO BID 08/22/18 Nitroglycerin [Nitrostat*] 0.4 mg SL SEECOM 08/22/18 Cholecalciferol (Vitamin D3) [Vitamin D 5,000 IU Cap*] 5,000 unit PO DAILY #30 cap 09/03/18 Insulin Degludec [Tresiba Flextouch U-200] 10 unit SQ BEDTIME #30 ml 09/03/18 Linagliptin [Tradjenta] 5 mg PO DAILY 09/10/18 - Past Medical/Surgical History Diabetic: Yes -: Diabetes mellitus type 2 -: Hypertension -: Chronic renal disease -: Broken tani shoulders, toes tani feet, L elbow hx -: Cataract -: History DVT to the left lower extremity -: Hyperlipidemia -: CAD with multiple stents -: Peripheral vascular disease -: Carotid arterial disease -: History of osteomyelitis -: Severe cervical spine disease -: Cardiac Cath with 3 stents -: 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 She has 6 children - Family History Father History Unknown: Yes Medical History: GI disease, Cancer Mother History Unknown: Yes Medical History: GI disease, Stroke, Cancer, Other (see notes) Notes: brain tumor Brother History Unknown: Yes Medical History: Heart disease, Hypertension, Diabetes, Kidney disease Sister History Unknown: Yes Medical History: Heart disease, Hypertension, GI disease - Social History Alcohol use: No CD- Drugs: No Caffeine use: Yes Place of Residence: Home Review of Systems 10-point ROS is otherwise unremarkable General: Weakness Respiratory: Shortness of Breath Physical Examination Temp Pulse Resp BP Pulse Ox 97.7 F 71 16 143/65 H 98 09/15/18 11:59 09/15/18 11:59 09/15/18 11:59 09/15/18 11:59 09/15/18 11:59 General: Alert, In no apparent distress, Oriented x3 HEENT: Atraumatic Neck: Supple Respiratory: Clear to auscultation bilaterally, Normal air movement Cardiovascular: No edema, Regular rate/rhythm Gastrointestinal: Normal bowel sounds, Soft and benign - Problems (1) Shortness of breath Current Visit: Yes Status: Acute Plan: Patient is 78 years of age admitted with shortness of breath possibly allergic reaction to Bactrim chest x-ray unremarkable V/Q scan shows low probability she has chronic renal insufficiency patient has enterobacter in her urine she is currently on cefepime can change him over to p.o. levofloxacin low-dose adjusted for her renal failure check room air pulse ox patient's white count is normal blood pressure elevated doubt pulmonary embolism possible discharge tomorrow
[2018-09-15 13:43] VITALS: BMI 31.1
--- NOTE | 2018-09-15 14:52 | PN ---
Date of Progress Note: 09/15/2018 Subjective: Patient was seen and examined, chart reviewed and case discussed with RN and Dr. Mary escobar. Patient unable to have V/Q scan done yesterday due to anxiety, unable to tolerate the procedure. V/Q scan to be repeated again today. Medication List: Reviewed. Physical Examination: Vital Signs: Temperature 97.7, heart rate 85, blood pressure 177/77, respirations 16, O2 of 98% on 2 L via nasal cannula. General: Awake, alert, oriented x3. Elderly female, obese, in mild respiratory distress. CV: S1, S2. Peripheral pulses present. Respiratory: Moving air well bilaterally. No wheezing. Gastrointestinal: Abdomen is soft, nontender, nondistended. Positive bowel sounds. No guarding or rigidity. Extremities: No clubbing, cyanosis, or edema. Neurologic: Nonfocal. Laboratory Data: Sodium 138, potassium 4.4, chloride 101, CO2 of 31, BUN 56, creatinine 2.7, glucose 146, calcium 8.6, albumin 2.8. WBC 5.2, H and H 11.8 and 35.1, platelets 239, neutrophils 53%. Uri ne culture growing out Enterobacter cloacae. Blood cultures negative final. V/Q scan shows low prob ability for pulmonary embolus. Assessment And Plan: A 78-year-old female. 1.Acute cystitis, secondary to enterobacter. We will continue with IV cefepime. 2.Acute respiratory failure with hypoxia secondary to congestive heart failure. D-dimer is elevated . V/Q scan shows low possibility for pulmonary embolism. Appreciate Dr. Lew's input. 3.Acute on chronic diastolic heart failure exacerbation, improving, diuresing well. We will continu e with Bumex. Monitor I's and O's. Continue free fluid restriction. 4.Acute on chronic kidney disease stage 3. Creatinine is improving, likely secondary to Bactrim. D rAurora Aglieco on board. We will avoid NSAIDs, continue to monitor. 5.Diabetes mellitus type 2 with long-term 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 with chronic kidney disease, stable. 6.Essential hypertension, stable. 7.Coronary artery disease. [place] artery and [place] heart without angina, stable. 8.Obesity, body mass index of 32. We will likely discharge once home O2 has been delivered. SA/MODL Voice ID: [id number] Report ID: [id number]
[2018-09-15 16:51] VITALS: O2SAT 95
[2018-09-15 17:12] VITALS: BP 133/60; TEMP 98.3
--- NOTE | 2018-09-15 18:26 | RAD REPORT ---
EXAM DESCRIPTION: USExtrem Venous W Compress Bil09/15/2018 6:16 pm CLINICAL HISTORY: Bilateral leg swelling COMPARISON: July 2018 FINDINGS: The common femoral, superficial femoral, popliteal and posterior tibial veins bilaterally are compressible and demonstrate augmentation. Doppler demonstrates good flow. 3.6 x 0.9 x 2.6 centimeter Duvall's cyst left knee IMPRESSION: No evidence of deep venous thrombosis involving either lower extremity. 3.6 x 0.9 x 2.6 centimeter Duvall's cyst left knee
[2018-09-15] MEDS ORDERED: ENOXAPARIN 80 MG/0.8 ML SQ SCH (19:00)
--- NOTE | 2018-09-18 14:35 | DS ---
Date of Discharge: 09/15/2018 Consultants: Dr. Arteaga with Cardiology; Dr. King and Dr. Coleman with Nephrology; Dr. Lew with Pulmonology; and also Dr. Rothman with Cardiology. Admitting Diagnoses: 1.Acute cystitis. 2.Failure of outpatient treatment. 3.Acute respiratory failure. 4.Congestive heart failure, chronic, diastolic. 5.Acute on chronic renal failure, stage 3. 6.Diabetes mellitus type 2 with long-term 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 with chronic kidney disease. 7.Essential hypertension. 8.Coronary artery disease, [place] artery and [place] heart without angina. 9.Obesity, BMI 31. Discharge Diagnoses: 1.Acute cystitis, secondary to enterobacter. 2.Acute respiratory failure with hypoxia, secondary to diastolic heart failure. 3.Acute on chronic diastolic heart failure exacerbation, improved. 4.Acute on chronic kidney disease stage 3, improving. 5.Diabetes mellitus type 2 with long-term 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 with chronic kidney disease, stable. 6.Essential hypertension, stable. 7.Coronary artery disease, [place] artery and [place] heart without angina, stable. 8.Obesity, BMI 31. Hospital Course: The patient is a 78-year-old female with a complicated past medical history, comes in with UTI with failed outpatient treatment. The patient was treated with Bactrim, had worsening of her kidney function. The patient was started on Rocephin initially. Cultures were obtained, grew o ut Enterobacter cloacae, which were resistant to Rocephin, therefore was switched over to cefepime. The patient's blood cultures were negative. Her kidney function improved. She did have some hypoxia . She was seen by Cardiology for congestive heart failure. She was diuresed. She was initially hes itant to initiate diuresis as she was worried about her kidney function. I explained to her that we are monitoring the kidney function closely and that she needs diuresis to improve her hypoxia and get rid of her pulmonary edema. The patient did well with treatment. She remained hypoxic and required supplemental oxygenation. So, hypoxia was likely due to her CHF. The patient was also seen by Dr. King and Dr. Coleman with Nephrology. She was switched over to Bumex. Her kidney function impro rocky. Echocardiogram was also repeated, showed EF of 50% to 55%, left ventricular hypertrophy, impair ed left ventricular relaxation, dilated left atrium, mild mitral leaflet calcification. There was no pericardial effusion. The patient's D-dimer was checked, which was elevated. There was concern for PE. V/Q scan was done. Initially, patient was too anxious and was unable to lie down for the test and missed the opportunity to have the scan done despite receiving the radiotracer. Test was repeate d the following day, which showed low probability. Venous Doppler study was also done, which was neg ative for any DVT. The patient was able to ambulate well. Her oxygen levels were improving. She wa s then cleared for discharge and was sent home in a stable condition. Medications: As per medication reconciliation list. Followup: Follow up with primary care physician in 2-3 days. Follow up with cash grain farmer, Dr. Lolita vanegas, in 2 weeks. Follow up with carpenter's helper, Dr. Arteaga, in 2 weeks. Follow up with general internist and physician leader, Dr. Lew, in 2 weeks. Return to ER for worsening condition. Diet: Renal diabetic diet, fluid restricted, low sodium. Activity: As tolerated. For physical exam findings, please see progress note dictated on day of discharge. Total time spent discharging the patient was 37 minutes. /LIO Voice ID: [id number] Report ID: [id number]
== END 2018-09-15 19:35 | disposition home or self-care (01) | DRG 689 ==
LOC: ER 08:50 → ERHOLD 12:01 → 4TH 14:05
PROVIDERS: ADMIT Family Medicine; ATTEND Family Medicine
DX: N30.00 Acute cystitis without hematuria (principal); J96.01 Acute respiratory failure with hypoxia; I50.33 Acute on chronic diastolic (congestive) heart failure; N17.9 Acute kidney failure, unspecified; I13.0 Hypertensive heart and chronic kidney disease with heart failure and stage 1 through stage 4 chronic kidney disease, or unspecified chronic kidney disease; E87.1 Hypo-osmolality and hyponatremia; E44.0 Moderate protein-calorie malnutrition; B96.89 Other specified bacterial agents as the cause of diseases classified elsewhere; E11.22 Type 2 diabetes mellitus with diabetic chronic kidney disease; N18.3 Chronic kidney disease, stage 3 (moderate); I25.10 Atherosclerotic heart disease of native coronary artery without angina pectoris; I49.3 Ventricular premature depolarization; E78.5 Hyperlipidemia, unspecified; E11.51 Type 2 diabetes mellitus with diabetic peripheral angiopathy without gangrene; E66.09 Other obesity due to excess calories; D63.8 Anemia in other chronic diseases classified elsewhere; Z68.31 Body mass index [BMI] 31.0-31.9, adult; Z79.4 Long term (current) use of insulin; Z95.5 Presence of coronary angioplasty implant and graft; Z86.718 Personal history of other venous thrombosis and embolism; Z88.5 Allergy status to narcotic agent; Z88.2 Allergy status to sulfonamides
CPT/HCPCS: 36415; 71045; 71046; 78582; 80048; 80053; 81003; 81015; 82962; 83605; 83735; 83880; 84100; 84145; 84484; 85025; 85379; 87040; 87077; 87086; 87088; 87186; 93005; 93306; 93970; 94760; 96365; 96366; 96375; 99285; A9540; A9558; J0692; J0696; J1650; J1940; J2405

== ENCOUNTER 2018-09-20 21:56 | Observation (INO) | payer OTHER ==
[2018-09-20] MEDS ORDERED: NITROGLYCERIN 0.4 MG/TAB SL ONE (22:00)
--- OUTSIDE RECORDS SUMMARY | 2018-09-20 22:01 | XMS REPORT | Clinical Summary ---
:1940 Author Organization [facility] Address [address] [place] [address] Care Team Providers Name Role Phone John Perry Primary Care Provider Unavailable Roland Dueñas Unavailable Hakan King Crepe Box Tender Allergies Active Allergy Reactions Severity Noted Date [...] Encounters Date Type Specialty Care Team Description 09/13/2018 Documentation Research Iveth Aguilar 09/13/2018 Documentation Research Iveth Aguilar 08/21/2018 Documentation Transplant Haley Delacruz 08/07/2018 Surgery Spencer Todd R & Francisco Javier CATH / MD Дмитрий CORONARY ANGIOS / PCI 08/02/2018 Travel 08/01/2018 Surgery Spencer Todd CATH & PCI MD Дмитрий 08/01/2018 Anesthesia Event Sajan Mendoza MD 07/31/2018 - Hospital Encounter Cardiology Tina Christianson Unstable angina ( [facility]) (Primary Dx); 08/20/2018 MD Olman CKD (chronic kidney disease) stage 4, GFR 15-29 ml/min ([facility]); Deo Sung, NSTEMI (non-ST elevated myocardial infarction) ([facility]); Acute hypoxemic respiratory failure ([facility]); Edie OTIS (acute kidney injury) ([facility]); MD Daniel NSTEMI s/p Impella PCI by Dr. Todd 08/01/18; Spencer Todd Anemia of renal disease; MD Дмитрий Refusal of blood transfusions as patient is Cheondoism 07/31/2018 Orders Only General Internal Medicine after 09/19/2017 Social History Tobacco Use Types Packs/Day Years [...] Not on file Implants Implanted Type Area Batch Or Continuous Still Operator Device Shelf Model / Identifier Expiration Serial / Date Lot Stent Synergy Mr 2.49e09nz [id number] - [id number] IMPLANTS N/A: BOSTON [id number] 04/04/2020 [id number] / Implanted: Qty: 1 on 08/01/2018 by Spencer Todd MD Coronary SCI:INTERV / CARDIOLOGY [id number] [employer] Mr 2.55j36hi [id number] - [id number] IMPLANTS N/A: BOSTON [id number] 04/04/2020 [id number] / Implanted: Qty: 1 on 08/01/2018 by Spencer Todd MD Coronary SCI:INTERV / CARDIOLOGY [id number] [employer] Mr 2.96d09sv [id number] - [id number] IMPLANTS N/A: BOSTON [id number] 04/01/2020 [id number] / Implanted: Qty: 1 on 08/01/2018 by Spencer Todd MD Coronary SCI:INTERV / CARDIOLOGY [id number] St[employer] Otw 3.59f39hk [id number] - [id number] IMPLANTS Left: BOSTON [id number] 05/16/2020 [id number] / Implanted: Qty: 1 on 08/07/2018 by Spencer Todd MD Coronary SCI:INTERV / CARDIOLOGY [id number] St[employer] Otw 2.13a49sq [id number] - [id number] IMPLANTS Right: BOSTON [id number] 04/30/2020 [id number] / Implanted: Qty: 1 on 08/07/2018 by Spencer Todd MD Coronary SCI:INTERV / CARDIOLOGY [id number] St[employer] Otw 2.29p33om [id number] - [id number] IMPLANTS Right: BOSTON [id number] 05/21/2020 [id number] / Implanted: Qty: 1 on 08/07/2018 by Spencer Todd MD Coronary SCI:INTERV / CARDIOLOGY [id number] [employer] Mr 3.03f34ax [id number] - [id number] IMPLANTS Right: BOSTON [id number] 04/10/2020 [id number] / Implanted: Qty: 1 on 08/07/2018 by Spencer Todd MD Coronary SCI:INTERV / CARDIOLOGY [id number] St[employer] Otw 3.30z69eh [id number] - [id number] IMPLANTS Right: BOSTON [id number] 04/15/2020 [id number] / Implanted: Qty: 1 on 08/07/2018 by Spencer Todd MD Coronary SCI:INTERV / CARDIOLOGY [id number] Procedures Procedure Name Priority Date/Time Associated Comments [...] 390 ms QTC Calculation(Bazett) 492 ms P [place] 68 degrees R [place] 41 degrees T [place] 107 degrees Normal sinus rhythm Low voltage [...] 382 ms QTC Calculation(Bazett) 495 ms P [place] 80 degrees R [place] 60 degrees T [place] 61 degrees Sinus tachycardia Low voltage QRS [...] 448 ms QTC Calculation(Bazett) 469 ms P [place] 52 degrees R [place] 15 degrees T [place] 79 degrees Normal sinus rhythm Septal infarct , age undetermined Abnormal ECG No previous ECGs available after 09/19/2017 Results VASCULAR DIAGRAM -SCAN (08/24/2018 12:15 PM [...] (H)Comment: TESTED AT 70 - 110 mg/dL [facility] [address] [facility] [address] Specimen Blood Performing Organization Address City/State/Zipcode Phone Number [address] [address] CENTER CBC with platelet count + automated diff (08/20/2018 9:27 AM CDT)Only the most recent of17 resultswithin the time period is included. WBC 4.7 3.5 - 10.5 K/L [facility] RBC 3.14 (L) 3.93 - 5.22 M/L [facility] Hemoglobin 10.1 (L) 11.2 - 15.7 GM/DL [facility] Hematocrit 34.0 (L) 34.1 - 44.9 % [facility] MCV 108.3 (H)Comment: 79.4 - 94.8 fL [facility] Discordant results [facility] compared to previous result; clinical correlation required. MCH 32.2 25.6 - 32.2 pg [facility] MCHC 29.7 (L) 32.2 - 35.5 GM/DL [facility] RDW 18.5 (H) 11.7 - 14.4 % [facility] Platelets 186 150 - 450 K/CU MM [facility] MPV 9.5 9.4 - 12.3 fL [facility] nRBC 0 0 - 0 /100 WBC [facility] % Neutros 67 % [facility] % Lymphs 14 % [facility] % Monos 14 % [facility] % Eos 3 % [facility] % Baso 1 % [facility] # Neutros 3.16 1.56 - 6.13 K/L [facility] # Lymphs 0.67 (L) 1.18 - 3.74 K/L [facility] # Monos 0.65 (H) 0.24 - 0.36 K/L [facility] # Eos 0.15 0.04 - 0.36 K/L [facility] # Baso 0.03 0.01 - 0.08 K/L [facility] Immature 1 0 - 1 % [facility] Granulocytes-[facility] Specimen Blood Performing Organization Address City/State/Zipcode Phone Number [facility] [address] [place] [address] CENTER Basic Metabolic Panel (08/20/2018 3:38 AM CDT)Only the most recent of17 resultswithin the time period is included. Sodium 136 136 - 145 meq/L [facility] Potassium 4.0 3.5 - 5.1 meq/L [facility] Chloride 100 98 - 107 meq/L [facility] CO2 26 22 - 29 meq/L [facility] BUN 55 (H) 7 - 21 mg/dL [facility] Creatinine 2.87 (H) 0.57 - 1.25 mg/dL [facility] Glucose 79 70 - 105 mg/dL [facility] Calcium 8.6 8.4 - 10.2 mg/dL [facility] EGFR 16Comment: ESTIMATED GFR IS mL/min/1.73 sq m [facility] NOT ACCURATE CREATININE [facility]ICAL CENTER CLEARANCE IN PREDICTING GLOMERULAR FILTRATION RATE. ESTIMATED GFR IS NOT APPLICABLE FOR DIALYSIS PATIENTS. Specimen Blood Performing Organization Address City/State/Zipcode Phone Number [facility] [address] [place] [address] pelvis without IV contrast (08/16/2018 2:38 AM CDT) Specimen Narrative Performed At FINAL REPORT [employer] CT pelvis without contrast HISTORY: left groin/femoral [...] MD Report Verified Date/Time:08/16/2018 08:42:53 Reading Location: [facility] Radiology Reading Room Procedure Note Interface, [...] Report Verified Date/Time: 08/16/2018 08:42:53 Reading Location: [facility] Radiology Reading Room Performing Organization Address City/State/Zipcode Phone Number [employer] ECHOCARDIOGRAM REPORT - SCAN (08/15/2018 9:12 PM CDT) Narrative Performed At Limited 2D Echocardiogram (08/15/2018 3:53 PM CDT) Ejection Fraction [facility] Specimen Narrative Performed At Transthoracic Echocardiography Report (TTE) [facility] Demographics Patient NameHENRIQUE ARECHIGA Date of Study08/15/2018 ESCOBDEO Gender Female Visit [id number] Race [id number] Number Date of 1940 [facility] Physician Age 78 year(s) SonographerPretty Long [facility] It Help Desk Technician Amber Kaplan [facility] Interpreting Nat Pettit MD Procedure Type [...] inferolateral. Beauchamp's method of disk assessment is fnzkinecnm-ez-coevpu reduced (30%) . 2. The right ventricular [...] moderately enlarged (female - LVED vol -71-80ml/m2). Xybwdeae-rb-plbelu concentric LV hypertrophy. Global LV systolic function aksvarug-ha-qkfjoeen reduced . LVEF by Beauchamp's method of disk assessment is htdnzwgaji-sz-rrlorv reduced (30%) . The following segment(s) appear [...] Study 08/15/2018 ESCOBDEO Gender Female Visit Number [id number] Race Room Number [id number] Number Date of 1940 Referring Peyton Choe Physician Age 78 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[employer] Long [employer] It Help Desk Technician Amber Kaplan RDCS Interpreting Nat Pettit MD [...] inferolateral. Beauchamp's method of disk assessment is ddmatoalnh-zi-phmsoz reduced (30%) . 2. The right ventricular [...] moderately enlarged (female - LVED vol -71-80ml/m2). Mpgqvupr-xh-euiclw concentric LV hypertrophy. Global LV systolic function ykyilbvv-ml-xbeiwgbo reduced . LVEF by Beauchamp's method of disk assessment is wmnwmoslbw-zb-chsboe reduced (30%) . The following segment(s) appear [...] ml/m^2 LVESVI: 54 ml/m^2 Performing Organization Address City/[facility] [[email or web address] Phone Number [facility]ESSE[facility] Urinalysis w/Microscopic + Reflex to Culture (08/14/2018 10:53 AM CDT)Only the most recent of2 resultswithin the time period is included. Color, UA Light Yellow [facility] Clarity, UA Hazy [facility] Specific [place], UA 1.009 1.001 - 1.035 [facility] pH, UA 6.0 5.0 - 8.0 [facility] Protein, UA 30 mg/dL (A) Negative [facility] Glucose, UA Negative Negative [facility] Ketones, UA Negative Negative [facility] Bilirubin, UA Negative Negative [facility] Blood, UA Small (A) Negative [facility] Nitrite, UA Negative Negative [facility] Leukocytes, UA Large (A) Negative [facility] Urobilinogen, UA 0.2 0.2 - 1.0 mg/dL [facility] RBC, UA 0 /HPF [facility] WBC, UA >182 /HPF [facility] Bacteria, UA Many [facility] Squam Epithel, UA <1 /HPF [facility] Renal Epithelial 15 /HPF [facility] WBC Casts 14 /LPF [facility] Specimen Source [facility] Specimen Urine Performing Organization Address City/State/Zipcode Phone Number [facility] [address] [place] [address] [place] Urine culture (08/14/2018 10:53 AM CDT)Only the most recent of2 resultswithin the time period is included. Result >100,000 col/mL Raoultella [facility] ornithinolytic (A) [facility] [place] Gram Stain Result 4+ gram negative rods [facility] Gram Stain Result 4+ WBCs [facility] Specimen Urine Organism Antibiotic Method Susceptibility Raoultella [...] Resistant Performing Organization Address City/State/Zipcode Phone Number [address] [address] [place] Respiratory Panel [facility] (08/14/2018 10:18 AM CDT) Human Metapneumovirus Not detected Not detected, [facility] Rhinovirus Not detected Not detected, [facility] Influenza A Not detected Not detected, [facility] INFLUENZA A (NO SUBTYPE) Not detected, [facility] Influenza A subtype H1 Not detected, [facility] Influenza A Subtype H3 Not detected, [facility] Influenza A Subtype H1-2009 Not detected, [facility] Influenza B Not detected Not detected, [facility] Respiratory Syncytial Virus Not detected Not detected, [facility] Parainfluenza Virus 1 Not detected Not detected, [facility] Parainfluenza Virus 2 Not detected Not detected, [facility] Parainfluenza virus 3 Not detected Not detected, [facility] Parainfluenza Virus 4 Not detected Not detected, [facility] Adenovirus Not detected Not detected, [facility] Coronavirus 229E Not detected Not detected, [facility] Coronavirus HKU1 Not detected Not detected, [facility] Coronavirus NL63 Not detected Not detected, [facility] Coronavirus OC43 Not detected Not detected, [facility] Bordetella Pertussis Not detected Not detected, [facility] Chlamydophila Pneumoniae Not detected Not detected, [facility] Mycoplasma Pneumoniae Not detected Not detected, [facility] Specimen Nasopharyngeal Narrative Performed At Other viruses and bacteria not targeted by [facility] this PCR panel cannot be excluded; therefore clinical correlation and follow up of serology, culture results, and other molecular studies is required. The results are not intended to be used as the sole means for clinical diagnosis or patient management decisions. This sample was tested at the [facility] Molecular Diagnostics Laboratory using the [employer] Respiratory Panel. It is FDA cleared and has been verified and approved by the [facility] Molecular [facility]ostics [facility] for clinical use on nasopharyngeal swab specimens. The performance of the FilmArray RP has not been established in individuals who received influenza vaccine.Recent administration of a nasal influenza vaccine may cause false positive results for Influenza A and/or Influenza B. Performing Organization Address City/State/Zipcode Phone Number [facility] [address] [place] [phone] CENTER XR chest 1 view portable / bedside (08/14/2018 9:13 AM CDT)Only the most recent of18 resultswithin the time period is included. Specimen Narrative Performed At FINAL REPORT RIS CLINICAL HISTORY: cough TECHNIQUE: 1 view of the chest. COMPARISON: 08/12/2018 IMPRESSION: Mild lung base pleural-parenchymal opacity is again seen. There is minimal right lung base opacity and blunting of the right costophrenic angle. The cardiomediastinal silhouette is magnified by technique. Cervical fusion hardware is partially imaged. Signed: Su Delarosa MD Report Verified Date/Time:08/14/2018 09:50:21 Reading Location: [facility] Radiology Reading Room Procedure Note Interface, External [...] Report Verified Date/Time: 08/14/2018 09:50:21 Reading Location: [facility] Radiology Reading Room Performing Organization Address City/State/Zipcode Phone Number RIS Manual Differential (08/14/2018 5:57 AM CDT)Only the most recent of2 resultswithin the time period is included. % Neutros 86 % [facility] % Lymphs 4 % [facility] % Monos 5 % [facility] % Eos 2 % [facility] % Metamyelo 2 (H) 0 - 0 % [facility] % Myelo 1 (H) 0 - 0 % [facility] # Neutros 9.98 (H) 1.56 - 6.13 K/ul [facility] # Lymphs 0.46 (L) 1.18 - 3.74 K/ul [facility] # Monos 0.58 (H) 0.24 - 0.36 K/uL [facility] # Eos 0.23 0.04 - 0.36 K/uL [facility] # Metamyelo 0.23 (H) 0.00 - 0.00 K/uL [facility] # Myelo 0.12 (H) 0.00 - 0.00 K/uL [facility] Total Counted 100 [facility] nRBC (manual) 1 (H) 0 - 0 /100 WBC [facility] WBC Morphology Normal [facility] Platelet Morphology Normal [facility] Polychromasia 1+ few [facility] Hypochromia 1+ few [facility] Artifact Present [facility] Platelet Conc Adequate [facility] Specimen Blood Narrative Performed At Received comment: [facility] User comments: Slide comments: Performing Organization Address City/State/Zipcode Phone Number [facility] [address] [place] [address] [phone] CENTER Calcium, Ionized (08/14/2018 5:57 AM CDT)Only the most recent of8 resultswithin the time period is included. Calcium, Ion 1.04 (L) 1.12 - 1.27 mmol/L [facility] pH, Blood 7.38 [facility] Specimen Blood Performing Organization Address City/[facility]/Zipcode Phone Number [address] [address] CENTER Phosphorus (08/14/2018 5:57 AM CDT)Only the most recent of7 resultswithin the time period is included. Phosphorus 2.3 2.3 - 4.7 mg/dL [facility] Specimen Blood Performing Organization Address City/[facility]/Zipcode Phone Number [address] [address] CENTER Magnesium (08/14/2018 5:57 AM CDT)Only the most recent of16 resultswithin the time period is included. Magnesium 2.0 1.6 - 2.6 mg/dL [facility] Specimen Blood Performing Organization Address City/[facility] [[email or web address] Phone Number [address] [address] [place] Comprehensive metabolic panel (08/14/2018 5:57 AM CDT)Only the most recent of8 resultswithin the time period is included. Protein, Total 5.5 (L) 6.0 - 8.3 gm/dL [facility] Albumin 3.1 (L) 3.5 - 5.0 g/dL [facility] Alkaline Phosphatase 67 40 - 150 U/L [facility] Total Bilirubin 0.6 0.2 - 1.2 mg/dL [facility] Sodium 135 (L) 136 - 145 meq/L [facility] Potassium 3.8 3.5 - 5.1 meq/L [facility] Chloride 99 98 - 107 meq/L [facility] CO2 27 22 - 29 meq/L [facility] BUN 45 (H) 7 - 21 mg/dL [facility] Creatinine 3.56 (H) 0.57 - 1.25 mg/dL [facility] Glucose 116 (H) 70 - 105 mg/dL [facility] Calcium 8.5 8.4 - 10.2 mg/dL [facility] AST 30 5 - 34 U/L [facility] ALT 18 6 - 55 U/L [facility] EGFR 12Comment: ESTIMATED GFR mL/min/1.73 sq m [facility] IS NOT ACCURATE [facility] CREATININE CLEARANCE IN PREDICTING GLOMERULAR FILTRATION RATE. ESTIMATED GFR IS NOT APPLICABLE FOR DIALYSIS PATIENTS. Specimen Blood Performing Organization Address City/[facility]/Zipcode Phone Number [facility] [address] [place] [address] [phone] CENTER Blood gas, arterial (08/10/2018 2:27 PM CDT)Only the most recent of4 resultswithin the time period is included. pH, Arterial 7.44 7.35 - 7.45 [facility] pCO2, Arterial 38 35 - 45 mmHg [facility] pO2, Arterial 165 (H) 80 - 90 mmHg [facility] O2 Sat, Arterial 99.2 (H) 96.0 - 97.0 % [facility] HCO3, Arterial 26 21 - 29 mmol/L [facility] Base Excess, Arterial 1.1 -2.0 - 3.0 mmol/L [facility] Patient Temperature 36.4 C [facility] FIO2 44.0 % [facility] Specimen Blood, Arterial Performing Organization Address City/State/Zipcode Phone Number [facility] [address] [place] [address] CENTER Lactic Acid, Arterial (08/10/2018 2:26 PM CDT)Only the most recent of4 resultswithin the time period is included. Lactate, Art 0.9 0.5 - 2.2 mmol/L [facility] Specimen Blood, Arterial Performing Organization Address [facility]/Zipcode Phone Number [address] [phone] CENTER POC ACTIVATED CLOTTING TIME (08/07/2018 6:55 PM CDT)Only the most recent of6 resultswithin the time period is included. Activated Clotting Time 268Comment: TESTED AT sec [facility] [address] [place] [address] Specimen Blood Performing Organization Address City/[facility] [[email or web address] Phone Number [address] [address] [place] ECHOCARDIOGRAM REPORT - SCAN (08/06/2018 9:21 PM CDT) Narrative Performed At 2D Echo W/Doppler(CW/PW/Color) (08/06/2018 10:34 AM CDT) Ejection Fraction [facility] [place] [facility] Specimen Narrative Performed At Transthoracic Echocardiography Report (TTE) [facility] Demographics Patient NameCARRIHENRIQUE MOSES Date of Study08/06/2018 ESCOBDEO Gender Female Visit [id number] Race [id number] Number [facility] of 1940 [facility] Age 78 year(s) SonographerPretty Long RDCS It Help Desk Technician Amber Kaplan RDCS Interpreting Physician XIMENA Cormier Procedure Type of [...] Study 08/06/2018 ESCOBDEO Gender Female Visit Number [id number] Race Room Number 6212 Number Date of 1940 Referring Peyton Choe Physician Age 78 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Pretty Long RDCS It Help Desk Technician Amber Kaplan RDCS Interpreting Garry Goodwin Physician [...] LVOT Area: 2.81 cm^2 Performing Organization Address City/State/Zipcode Phone Number [facility]ON [facility] aPTT (08/06/2018 4:03 AM CDT)Only the most recent of7 resultswithin the time period is included. PTT 45.7 (H) 22.5 - 36.0 seconds [facility] Specimen Blood Narrative Performed At 4 hours after the start of continuous [facility] infusion and 4 hours after any rate change Performing Organization Address City/[facility] [[email or web address] Phone Number [address] [address] CENTER Clostridium difficile [facility] Toxin (08/04/2018 9:51 AM CDT) C. Difficle Toxin Negative Negative [facility] C. Difficile [facility] Antigen Positive (A)Comment: C. Negative [facility] difficile present but toxin [facility] CENTER not detected. Indicates colonization with non-toxigenic strain or level of toxin below detectable levels. No need for enteric isolation. Treatment is rarely needed (only when strong clinical suspicion for Clostridium difficile infection) Specimen Stool Narrative Performed At Testing performed by [employer] [facility] Assay.For G[facility], published sensitivity of the assay is 98.7% compared to cytotoxicity testing.For Toxin AB, published sensitivity is 87.8% and specificity 99.4% compared to cytotoxicity testing. Verification of kit performance was done by the [facility] Microbiology Lab prior to clinical use. Performing Organization Address City/[facility]/Zipcode Phone Number [address] [address] [place] Occult blood, stool (08/04/2018 9:51 AM CDT) Occult blood Positive (A) Negative [facility] Specimen Stool Performing Organization Address [facility] [[email or web address] Phone Number [address] [address] [place] Troponin I (08/04/2018 5:44 AM CDT)Only the most recent of4 resultswithin the time period is included. Troponin I 44.85 (HH) 0.00 - 0.03 ng/mL [facility] Specimen Blood Narrative Performed At Troponin I (TnI) levels must be interpreted [facility] in the context of the presenting symptoms [...] disease, and persistent tachyarrhythmia. Performing Organization Address [facility] [[email or web address]]code Phone Number [address] [address] [place] ECHOCARDIOGRAM REPORT - SCAN (08/03/2018 9:22 PM CDT) Narrative Performed At Limited 2D Echocardiogram (08/03/2018 11:17 AM CDT) Ejection Fraction [email or web address] Specimen Narrative Performed At Transthoracic Echocardiography Report (TTE) [facility] Cimagine MediaCKESSON CPA Demographics Patient NameCARRILLO, ENEDELIADate of Study08/03/2018 ESCOBDEO Female Visit [id number] Room [id number] Number Date of 1Referring Peyton Palmer S Physician Age 78 year(s)Rn Occupational Cheryl Phan [employer] It Help Desk Technician Nader Finley Interpreting Physician AurelianoMD Procedure Type [...] 27 ml/m^2 Aorta Ao Root S of Amry Ellen.: 3.1 cm Procedure Note Interface, External Ris In - 08/03/2018 5:54 PM CDT Transthoracic Echocardiography Report (TTE) Demographics Patient Name HENRIQUE ARECHIGA Date of Study 08/03/2018 ESCOBDEO Gender Female Visit Number [id number] Race Room Number 6212 Number Date of 1940 Referring Peyton Choe Physician Age 78 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hCeryl Phan [employer] It Help Desk Technician Nader Finley Interpreting Kash Carr, Physician Procedure [...] Mary Ellen.: 3.1 cm Performing Organization Address City/[facility]/Zipcode Phone Number [facility] MKCKESSON CPACS Creatine Kinase (CK) (08/03/2018 9:24 AM CDT) Total CK 601 (H) 29 - 200 U/L [facility] Specimen Blood Performing Organization Address [facility] [[email or web address]]conh Phone Number [facility] [address] [place] [address] [phone] CENTER ECG 12 lead (08/03/2018 8:00 AM CDT)Only the most recent of4 resultswithin the time period is included. Specimen Narrative Performed At Ventricular Rate 96 BPM GE MUSE Atrial Rate 96 BPM P-R Interval 176 ms QRS Duration 110 ms Q-T Interval 390 ms QTC Calculation(Bazett) 492 ms P Thornton 68 degrees R Thornton 41 degrees T Thornton 107 degrees Normal sinus rhythm Low voltage QRS Incomplete left bundle branch block Mild ST elevation with T wave inversion in aVL ST depression inferior and anterolateral leads consider subendocardial ischemia Prolonged QT Abnormal ECG When compared with ECG of 02-AUG-2018 06:46, No significant changes Confirmed by MD PATEL YOCHAI ([id number]) on 08/06/2018 6:32:30 AM Procedure Note Interface, External Ris In - 08/06/2018 6:32 AM CDT Ventricular Rate 96 BPM Atrial Rate 96 BPM P-R Interval 176 ms QRS Duration 110 ms Q-T Interval 390 ms QTC Calculation(Bazett) 492 ms P Thornton 68 degrees R Thornton 41 degrees T Thornton 107 degrees Normal sinus rhythm Low voltage QRS Incomplete left bundle branch block Mild ST elevation with T wave inversion in aVL ST depression inferior and anterolateral leads consider subendocardial ischemia Prolonged QT Abnormal ECG When compared with ECG of 02-AUG-2018 06:46, No significant changes Confirmed by MD PATEL YOCHAI ([id number]) on 08/06/2018 6:32:30 AM Performing Organization Address [facility] [[email or web address] Phone Number GE MUSE Reticulocyte count (08/03/2018 1:52 AM CDT) % Retic 2.7 (H) 0.5 - 1.7 % [facility] Specimen Blood Performing Organization Address City/State/Zipcode Phone Number [address] [phone] [place] Vitamin B12 and Folate (08/03/2018 1:51 AM CDT) Vitamin B12 212 (L) 213 - 816 pg/mL [facility] Folate 15.1 >=7.0 ng/mL [facility] Specimen Blood Performing Organization Address City/State/Zipcode Phone Number [address] [address] CENTER Iron, TIBC, % sat. (without ferritin) (08/03/2018 1:51 AM CDT) Iron 27.0 (L) 40.0 - 160.0 ug/dL [facility] TIBC 221 (L) 250 - 450 ug/dL [facility] Iron % Saturation 12 (L) 20 - 55 % [facility] Specimen Blood Performing Organization Address City/[facility]/Zipcode Phone Number [address] [address] [phone] [place] Ferritin (08/03/2018 1:51 AM CDT) Ferritin 207 5 - 275 ng/mL [facility] Specimen Blood Performing Organization Address City/[facility]/Zipcode Phone Number [address] [address] [phone] [place] US renal complete (08/02/2018 5:48 AM CDT) Specimen Narrative Performed At FINAL REPORT Smart Gardener TECHNIQUE: Grayscale ultrasound of the kidneys and [...] MD Report Verified Date/Time:08/02/2018 08:45:50 Reading Location: [address] Radiology Reading Room Procedure Note Interface, [...] Report Verified Date/Time: 08/02/2018 08:45:50 Reading Location: [address] Radiology Reading Room Performing Organization Address City/State/[facility] [[email or web address] Phone Number [facility] Potassium-Stat Lab (08/02/2018 3:52 AM CDT)Only the most recent of3 resultswithin the time period is included. Potassium 4.6 3.6 - 5.5 meq/L [facility] Specimen Blood, Arterial Performing Organization Address [facility] Phone Number [address] [address] CENTER Sodium Na-Stat Lab (08/02/2018 3:52 AM CDT)Only the most recent of3 resultswithin the time period is included. Sodium 136 135 - 148 meq/L [facility] Specimen Blood, Arterial Performing Organization Address [facility] Phone Number [address] [address] [phone] CENTER Glucose-Stat Lab (08/02/2018 3:52 AM CDT)Only the most recent of3 resultswithin the time period is included. Glucose 272 (H) 70 - 110 mg/dL [facility] Specimen Blood, Arterial Performing Organization Address [facility] Phone Number [address] [address] [phone] CENTER HGB/HCT (H&H)-Stat Lab (08/02/2018 3:52 AM CDT)Only the most recent of3 resultswithin the time period is included. Hemoglobin 10.9 (L) 12.0 - 15.0 g/dL [facility] Hematocrit 32.0 (L) 36.0 - 45.0 % [facility] Specimen Blood, Arterial Performing Organization Address [facility] Phone Number [address] [phone] CENTER Uric acid (08/02/2018 3:52 AM CDT) Uric Acid 9.1 (H)Comment: Specimen 2.6 - 7.2 mg/dL [facility] slightly hemolyzed [facility] Specimen Blood Performing Organization Address [facility] [[email or web address]]conh Phone Number [address] [address] [phone] CENTER B-type Natriuretic Factor (BNP) (08/02/2018 3:52 AM CDT)Only the most recent of2 resultswithin the time period is included. BNP 1,452 (H) 0 - 100 pg/mL [facility] Specimen Blood Performing Organization Address [facility] Phone Number [address] [address] [place] PERIPHERAL VASCULAR REPORT - SCAN (08/01/2018 9:23 PM CDT) Narrative Performed At ECHOCARDIOGRAM REPORT - SCAN (08/01/2018 9:21 PM CDT) Narrative Performed At PT/aPTT (08/01/2018 7:07 PM CDT) Protime 33.9 (H) 11.9 - 14.2 seconds [facility] INR 3.6 <=5.9 [facility] PTT 85.5 (H) 22.5 - 36.0 seconds [facility] Specimen Blood Narrative Performed At Effective 07/18/2018: PT Reference Range [facility] Change New: 11.9-14.2Previous: 11.7-14.7 RECOMMENDED COUMADIN/WARFARIN INR THERAPY RANGES STANDARD DOSE: 2.0-3.0Includes: PROPHYLAXIS for venous thrombosis, systemic embolization; TREATMENT for venous thrombosis and/or pulmonary embolus. HIGH RISK: Target INR is 2.5-3.5 for patients wiht mechanical heart valves. Performing Organization Address City/[facility] [[email or web address]]code Phone Number [facility] [address] [phone] CENTER Oxygen saturation, measured (08/01/2018 7:07 PM CDT) O2 Saturation (Measured) 41.9 % [facility] Specimen Blood Performing Organization Address City/State/Zipcode Phone Number [address] [address] [phone] CENTER Fibrinogen (08/01/2018 7:07 PM CDT) Fibrinogen 336 225 - 434 mg/dl [facility] Specimen Blood Performing Organization Address City/[facility] [[email or web address]]code Phone Number [address] [address] [phone] [place] CBC (Hemogram only) (08/01/2018 7:07 PM CDT) WBC 14.1 (H) 3.5 - 10.5 K/L [facility] RBC 3.68 (L) 3.93 - 5.22 M/L [facility] Hemoglobin 11.3 11.2 - 15.7 GM/DL [facility] Hematocrit 34.6 34.1 - 44.9 % [facility] MCV 94.0 79.4 - 94.8 fL [facility] MCH 30.7 25.6 - 32.2 pg [facility] MCHC 32.7 32.2 - 35.5 GM/DL [facility] RDW 13.1 11.7 - 14.4 % [facility] Platelets 207 150 - 450 K/CU MM [facility] MPV 9.9 9.4 - 12.3 fL [facility] nRBC 0 0 - 0 /100 WBC [facility] Specimen Blood Performing Organization Address City/State/Zipcode Phone Number [address] [address] [place] Electrolytes (08/01/2018 7:07 PM CDT) Sodium 137 136 - 145 meq/L [facility] Potassium 4.8Comment: Specimen slightly 3.5 - 5.1 meq/L [facility] hemolyzed [facility] Chloride 109 (H) 98 - 107 meq/L [facility] CO2 20 (L) 22 - 29 meq/L [facility] Specimen Blood Narrative Performed At Call k > 5, [phone] [facility] Performing Organization Address City/[facility]/Zipcode Phone Number [address] [address] [place] Hemoglobin and hematocrit (08/01/2018 4:16 PM CDT) Hemoglobin 10.1 (L) 11.2 - 15.7 GM/DL [facility] Hematocrit 31.6 (L) 34.1 - 44.9 % [facility] Specimen Blood Performing Organization Address City/[facility] [[email or web address]]code Phone Number [address] [address] [place] Platelet Aggregation: Function Screen (08/01/2018 8:04 AM CDT) Weak ADP 34 (L) 60 - 91 % [facility] Plt. Function Screen 0-39% indicates marked [facility] Interpretation platelet dysfunction [facility] Pathologist: Talia Villarreal MD [facility] (electronic signature) [facility] Platelets 186 150 - 450 K/CU [facility] Specimen Blood Narrative Performed At Platelet Function Screen results may be [facility] falsely low with platelet counts <100,000/cu mm. Performing Organization Address City/State/Zipcode Phone Number [address] [address] [phone] [place] Hepatic function panel (08/01/2018 5:25 AM CDT)Only the most recent of2 resultswithin the time period is included. Protein, Total 6.2Comment: Specimen 6.0 - 8.3 gm/dL [facility] hemolyzed [facility] Albumin 3.4 (L)Comment: Specimen 3.5 - 5.0 g/dL [facility] hemolyzed [facility] Total Bilirubin 0.4Comment: Specimen 0.2 - 1.2 mg/dL [facility] Bilirubin, Direct 0.1Comment: Specimen 0.1 - 0.5 mg/dL [facility] Alkaline Phosphatase 59 40 - 150 U/L [facility] AST 19Comment: Specimen 5 - 34 U/L [facility] hemolyzed [facility] ALT 10Comment: Specimen 6 - 55 U/L [facility] Spec[facility] Blood Performing Organization Address [facility] [[email or web address]]code Phone Number [address] [address] CENTER Thrombin time (08/01/2018 4:18 AM CDT) Thrombin Time 64.9 (H) 13.8 - 20.0 secs [facility] Specimen Blood Narrative Performed At Draw baseline aPTT prior to infusion [facility] Performing Organization Address [facility] [[email or web address] Phone Number [address] [address] [phone] CENTER Prothrombin time/INR (08/01/2018 4:18 AM CDT)Only the most recent of2 resultswithin the time period is included. Protime 15.0 (H) 11.9 - 14.2 seconds [facility] INR 1.2 <=5.9 [facility] Specimen Blood Narrative Performed At Effective 07/18/2018: PT Reference Range [facility] Change New: 11.9-14.2Previous: 11.7-14.7 RECOMMENDED COUMADIN/WARFARIN INR THERAPY RANGES STANDARD DOSE: 2.0-3.0Includes: PROPHYLAXIS for venous thrombosis, systemic embolization; TREATMENT for venous thrombosis and/or pulmonary embolus. HIGH RISK: Target INR is 2.5-3.5 for patients wiht mechanical heart valves. Draw baseline aPTT prior to infusion Performing Organization Address City/State/Zipcode Phone Number [facility] [address] [place] [address] [phone] CENTER 2D Echo W/Doppler(CW/PW/Color) (08/01/2018 2:05 AM CDT) Ejection Fraction [facility] Specimen Narrative Performed At Transthoracic Echocardiography Report (TTE) [facility] Demographics Patient NameCARRILLOHENRIQUE Date of Study 08/01/2018 ESCOBDEO GenderFemale Visit [id number] RaceUnknown Number [id number] Number Date of 1940 Referring Peyton Choe Physician Age 78 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[employer], 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 InterpretingStep david Pettit, Physician FellowRey Ferraro [...] Study 08/01/2018 ESCOBDEO Gender Female Visit Number [id number] Race Unknown Room Number 6102 Number Date of 1940 Referring Peyton Choe Physician Age 78 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 There is <50% diameter reduction [...] Performed At LAB - Carotid Duplex Study [facility] Demographics Patient Name HENRIQUE ARECHIGA Date of Study08/01/2018 ESCOBDEO [id number] Visit Number [id number] Gender Female Accession Number [id number] Date of Birth1940 [facility] [id number] Physician SonographPerri Garces Interpreting Physician MaximusMD Procedure [...] Study 08/01/2018 ESCOBDEO Age 78 Visit Number [id number] Gender Female Accession Number [id number] Date of 1940 Referring Peyton Choe Room Number 6102 Physician Rn Occupational Rex Garces Interpreting Brandi Camara, Physician Procedure [...] Additional Measurements:ICAPSV/CCAPSV 1.61.ICAEDV/CCAEDV 1.15. Performing Organization Address City/[facility] [[email or web address] Phone Number [facility]ON CPACS TSH/T4 if indicated (07/31/2018 8:12 PM CDT) TSH 0.99 0.35 - 4.94 uIU/mL [facility] Specimen Blood Performing Organization Address City/[facility] [[email or web address]]code Phone Number [facility] [address] [place] [address] CENTER after 09/19/2017 Insurance Payer Benefit Plan / Group Subscriber ID Type Phone Address [facility] xxxxxxxx Maps Contracted MEDICAID [place] xxxxxxxxx Medicaid Advance Directives Patient has advance care planning documents, and code status on file. For more information, please contact:[facility] [place] [address] [phone] Code Status Date Activated Date Inactivated Comments Full Code 08/01/2018 12:28 AM 08/20/2018 5:24 PM This code status was determined by: Patient Full Code 07/31/2018 7:56 PM 08/01/2018 12:28 AM This code status was determined by: Patient
--- OUTSIDE RECORDS SUMMARY | 2018-09-20 22:05 | XMS REPORT ---
:1940 [facility] Address [address] [place] [address] [address] [place] [address] Care Team Providers Name Role Phone RUMA [...] 111 mg/dL 70-[address] [facility] [address] [facility] cgeg=[id number]) [facility] [address] CBC W/PLT COUNT & AUTO [id number] 10:11:00 Test Item Value Reference Range Comments WHITE BLOOD CELL COUNT 4.7 K/ L 3.5-10.5 (BEAKER) (test ensk=839) RED BLOOD CELL COUNT (BEAKER) 3.14 M/ L 3.93-5.22 (test gxhz=832) HEMOGLOBIN (BEAKER) (test 10.1 GM/DL 11.2-15.7 cssc=665) HEMATOCRIT (BEAKER) (test 34.0 % 34.1-44.9 stpe=956) MEAN CORPUSCULAR VOLUME 108.3 fL 79.4-94.8 Discordant results compared (BEAKER) (test mytv=753) to previous result; clinical correlation required. MEAN CORPUSCULAR HEMOGLOBIN 32.2 pg 25.6-32.2 (BEAKER) (test gqcs=298) MEAN CORPUSCULAR HEMOGLOBIN 29.7 GM/DL 32.2-35.5 CONC (BEAKER) (test gfyp=320) RED CELL DISTRIBUTION WIDTH 18.5 % 11.7-14.4 (BEAKER) (test uubq=173) PLATELET COUNT (BEAKER) (test 186 K/CU MM 150-450 ddxj=235) MEAN PLATELET VOLUME (BEAKER) 9.5 fL 9.4-12.3 (test sbpj=742) NUCLEATED RED BLOOD CELLS 0 /100 WBC 0-0 (BEAKER) (test xqfb=133) NEUTROPHILS RELATIVE PERCENT 67 % (BEAKER) (test anpq=855) LYMPHOCYTES RELATIVE PERCENT 14 % (BEAKER) (test hhph=379) MONOCYTES RELATIVE PERCENT 14 % (BEAKER) (test rott=872) EOSINOPHILS RELATIVE PERCENT 3 % (BEAKER) (test cayy=964) BASOPHILS RELATIVE PERCENT 1 % (BEAKER) (test mlqy=928) NEUTROPHILS ABSOLUTE COUNT 3.16 K/ L 1.56-6.13 (BEAKER) (test lyvb=927) LYMPHOCYTES ABSOLUTE COUNT 0.67 K/ L 1.18-3.74 (BEAKER) (test ueia=719) MONOCYTES ABSOLUTE COUNT 0.65 K/ L 0.24-0.36 (BEAKER) (test jrmd=460) EOSINOPHILS ABSOLUTE COUNT 0.15 K/ L 0.04-0.36 (BEAKER) (test wvha=629) BASOPHILS ABSOLUTE COUNT 0.03 K/ L 0.01-0.08 (BEAKER) (test plnd=575) IMMATURE 1 % 0-1 GRANULOCYTES-RELATIVE PERCENT (BEAKER) (test efkv=4540) POCT-GLUCOSE [id number] 07:46:00 Test Item Value Reference Range Comments POC-GLUCOSE METER (BEAKER) 79 mg/dL 70-[address] [facility] [address] [facility] (test wlnh=3121) [facility] [address] BASIC METABOLIC [id number] 06:22:00 Test Item Value Reference Range Comments SODIUM (BEAKER) (test 136 meq/L 136-145 xmpo=876) POTASSIUM (BEAKER) (test 4.0 meq/L 3.5-5.1 wfne=059) CHLORIDE (BEAKER) (test 100 meq/L 98-107 kpue=605) CO2 (BEAKER) (test 26 meq/L 22-29 namp=262) BLOOD UREA NITROGEN 55 mg/dL 7-21 (BEAKER) (test gaag=703) CREATININE (BEAKER) (test 2.87 mg/dL 0.57-1.25 vxzy=828) GLUCOSE RANDOM (BEAKER) 79 mg/dL 70-105 (test klgw=292) CALCIUM (BEAKER) (test 8.6 mg/dL 8.4-10.2 yavf=391) EGFR (BEAKER) (test 16 mL/min/1.73 sq m ESTIMATED GFR IS NOT phxp=8248) ACCURATE CREATININE CLEARANCE IN PREDICTING GLOMERULAR FILTRATION RATE. ESTIMATED GFR IS NOT APPLICABLE FOR DIALYSIS PATIENTS. POCT-GLUCOSE [id number] 20:51:00 Test Item Value Reference Range Comments POC-GLUCOSE METER (BEAKER) 176 mg/dL 70-110 TESTED AT [address] (test sidg=1872) [place] [address] POCT-GLUCOSE [id number] 18:25:00 Test Item Value Reference Range Comments POC-GLUCOSE METER (BEAKER) 84 mg/dL 70-110 TESTED AT [address] (test jvmt=0862) [place] [address] POCT-GLUCOSE [id number] 12:54:00 Test Item Value Reference Range Comments POC-GLUCOSE METER (BEAKER) 111 mg/dL 70-110 TESTED AT [address] (test ekad=5452) [place] [address] POCT-GLUCOSE [id number] 08:25:00 Test Item Value Reference Range Comments POC-GLUCOSE METER (BEAKER) 105 mg/dL 70-110 TESTED AT [address] (test coyw=8810) [place] [address] BASIC METABOLIC [id number] 06:26:00 Test Item Value Reference Range Comments SODIUM (BEAKER) (test 137 meq/L 136-145 bmso=136) POTASSIUM (BEAKER) (test 3.9 meq/L 3.5-5.1 ugje=871) CHLORIDE (BEAKER) (test 100 meq/L 98-107 hqsn=994) CO2 (BEAKER) (test 28 meq/L 22-29 jipm=485) BLOOD UREA NITROGEN 53 mg/dL 7-21 (BEAKER) (test mfgi=014) CREATININE (BEAKER) (test 3.07 mg/dL 0.57-1.25 onte=089) GLUCOSE RANDOM (BEAKER) 71 mg/dL 70-105 (test kmzl=738) CALCIUM (BEAKER) (test 8.6 mg/dL 8.4-10.2 egbv=646) EGFR (BEAKER) (test 15 mL/min/1.73 sq m ESTIMATED GFR IS NOT lkkt=2135) ACCURATE CREATININE CLEARANCE IN PREDICTING GLOMERULAR FILTRATION RATE. ESTIMATED GFR IS NOT APPLICABLE FOR DIALYSIS PATIENTS. POCT-GLUCOSE [id number] 04:25:00 Test Item Value Reference Range Comments POC-GLUCOSE METER (BEAKER) 81 mg/dL 70-110 TESTED AT [address] (test imit=3880) [place] [address] POCT-GLUCOSE [id number] 21:58:00 Test Item Value Reference Range Comments POC-GLUCOSE METER (BEAKER) 164 mg/dL 70-110 TESTED AT [address] (test dfhr=2029) [place] [address] POCT-GLUCOSE [id number] 18:38:00 Test Item Value Reference Range Comments POC-GLUCOSE METER (BEAKER) 98 mg/dL 70-110 TESTED AT [address] (test pgag=1236) [place] [address] POCT-GLUCOSE [id number] 13:14:00 Test Item Value Reference Range Comments POC-GLUCOSE METER (BEAKER) 105 mg/dL 70-110 TESTED AT [address] (test vfek=3911) [place] [address] POCT-GLUCOSE [id number] 08:12:00 Test Item Value Reference Range Comments POC-GLUCOSE METER (BEAKER) 115 mg/dL 70-110 TESTED AT [address] (test clyl=4310) [place] [address] BASIC METABOLIC [id number] 07:37:00 Test Item Value Reference Range Comments SODIUM (BEAKER) (test 136 meq/L 136-145 sahn=098) POTASSIUM (BEAKER) (test 3.7 meq/L 3.5-5.1 rhnz=365) CHLORIDE (BEAKER) (test 98 meq/L 98-107 waad=463) CO2 (BEAKER) (test 28 meq/L 22-29 txuk=384) BLOOD UREA NITROGEN 54 mg/dL 7-21 (BEAKER) (test axek=153) CREATININE (BEAKER) (test 3.37 mg/dL 0.57-1.25 keqn=024) GLUCOSE RANDOM (BEAKER) 85 mg/dL 70-105 (test dsrh=988) CALCIUM (BEAKER) (test 8.5 mg/dL 8.4-10.2 dyqa=743) EGFR (BEAKER) (test 13 mL/min/1.73 sq m ESTIMATED GFR IS NOT kion=2163) ACCURATE CREATININE CLEARANCE IN PREDICTING GLOMERULAR FILTRATION RATE. ESTIMATED GFR IS NOT APPLICABLE FOR DIALYSIS PATIENTS. POCT-GLUCOSE [id number] 07:22:00 Test Item Value Reference Range Comments POC-GLUCOSE METER (BEAKER) 128 mg/dL 70-110 TESTED AT [address] (test zjak=1564) [place] [address] POCT-GLUCOSE [id number] 04:05:00 Test Item Value Reference Range Comments POC-GLUCOSE METER (BEAKER) 95 mg/dL 70-110 TESTED AT [address] (test ooyn=5373) [place] [address] POCT-GLUCOSE [id number] 04:05:00 Test Item Value Reference Range Comments POC-GLUCOSE METER (BEAKER) 68 mg/dL 70-110 TESTED AT [address] (test pnhi=7401) [place] [address] POCT-GLUCOSE [id number] 04:05:00 Test Item Value Reference Range Comments POC-GLUCOSE METER (BEAKER) 52 mg/dL 70-110 TESTED AT [address] (test pfuf=4771) [facility] [address] POCT-GLUCOSE [id number] 22:26:00 Test Item Value Reference Range Comments POC-GLUCOSE METER (BEAKER) 132 mg/dL 70-110 TESTED AT [address] (test yfvl=3335) [place] [address] POCT-GLUCOSE [id number] 19:58:00 Test Item Value Reference Range Comments POC-GLUCOSE METER (BEAKER) 134 mg/dL 70-110 TESTED AT [address] (test lbzg=9337) [facility] [address] POCT-GLUCOSE [id number] 13:11:00 Test Item Value Reference Range Comments POC-GLUCOSE METER (BEAKER) 148 mg/dL 70-110 TESTED AT [place] [id number] [facility] (test dnxx=2703) [place] [address] POCT-GLUCOSE [id number] 12:30:00 Test Item Value Reference Range Comments POC-GLUCOSE METER (BEAKER) 183 mg/dL 70-110 TESTED AT [place] [address] [facility] (test oade=2208) [facility] [address] CBC W/PLT COUNT & AUTO [id number] 10:37:00 Test Item Value Reference Range Comments WHITE BLOOD CELL COUNT (BEAKER) (test qnjj=035) 7.4 K/ L 3.5-10.5 RED BLOOD CELL COUNT (BEAKER) (test pfcn=234) 3.03 M/ L 3.93-5.22 HEMOGLOBIN (BEAKER) (test cefk=058) 9.5 GM/DL 11.2-15.7 HEMATOCRIT (BEAKER) (test lnre=159) 31.4 % 34.1-44.9 MEAN CORPUSCULAR VOLUME (BEAKER) (test alyn=227) 103.6 fL 79.4-94.8 MEAN CORPUSCULAR HEMOGLOBIN (BEAKER) (test 31.4 pg 25.6-32.2 usuh=452) MEAN CORPUSCULAR HEMOGLOBIN CONC (BEAKER) (test 30.3 GM/DL 32.2-35.5 tneq=704) RED CELL DISTRIBUTION WIDTH (BEAKER) (test 18.8 % 11.7-14.4 wiaz=695) PLATELET COUNT (BEAKER) (test fkgh=086) 205 K/CU MM 150-450 MEAN PLATELET VOLUME (BEAKER) (test mxhr=737) 9.8 fL 9.4-12.3 NUCLEATED RED BLOOD CELLS (BEAKER) (test 0 /100 WBC 0-0 dckx=462) NEUTROPHILS RELATIVE PERCENT (BEAKER) (test 70 % ckxf=559) LYMPHOCYTES RELATIVE PERCENT (BEAKER) (test 11 % vjfw=739) MONOCYTES RELATIVE PERCENT (BEAKER) (test 15 % ksng=542) EOSINOPHILS RELATIVE PERCENT (BEAKER) (test 2 % yazd=665) BASOPHILS RELATIVE PERCENT (BEAKER) (test 0 % ibuy=841) NEUTROPHILS ABSOLUTE COUNT (BEAKER) (test 5.19 K/ L 1.56-6.13 oqyc=397) LYMPHOCYTES ABSOLUTE COUNT (BEAKER) (test 0.82 K/ L 1.18-3.74 pkcl=208) MONOCYTES ABSOLUTE COUNT (BEAKER) (test 1.13 K/ L 0.24-0.36 vrnz=507) EOSINOPHILS ABSOLUTE COUNT (BEAKER) (test 0.14 K/ L 0.04-0.36 mzyj=648) BASOPHILS ABSOLUTE COUNT (BEAKER) (test 0.03 K/ L 0.01-0.08 gfny=692) IMMATURE GRANULOCYTES-RELATIVE PERCENT (BEAKER) 1 % 0-1 (test myuy=7011) POCT-GLUCOSE [id number] 08:09:00 Test Item Value Reference Range Comments POC-GLUCOSE METER (BEAKER) 99 mg/dL 70-110 TESTED AT [address] (test pmgk=0018) [place] [address] BASIC METABOLIC [id number] 05:41:00 Test Item Value Reference Range Comments SODIUM (BEAKER) (test 136 meq/L 136-145 zphk=812) POTASSIUM (BEAKER) (test 4.1 meq/L 3.5-5.1 ctfd=028) CHLORIDE (BEAKER) (test 99 meq/L 98-107 gfje=558) CO2 (BEAKER) (test 29 meq/L 22-29 omkn=617) BLOOD UREA NITROGEN 46 mg/dL 7-21 (BEAKER) (test jkyc=605) CREATININE (BEAKER) (test 3.01 mg/dL 0.57-1.25 uulk=821) GLUCOSE RANDOM (BEAKER) 107 mg/dL 70-105 (test rvak=986) CALCIUM (BEAKER) (test 8.5 mg/dL 8.4-10.2 lzed=781) EGFR (BEAKER) (test 15 mL/min/1.73 sq m ESTIMATED GFR IS NOT opiv=3543) ACCURATE CREATININE CLEARANCE IN PREDICTING GLOMERULAR FILTRATION RATE. ESTIMATED GFR IS NOT APPLICABLE FOR DIALYSIS PATIENTS. POCT-GLUCOSE [id number] 21:42:00 Test Item Value Reference Range Comments POC-GLUCOSE METER (BEAKER) 171 mg/dL 70-110 TESTED AT [address] (test oqfo=2496) [place] [address] POCT-GLUCOSE [id number] 18:03:00 Test Item Value Reference Range Comments POC-GLUCOSE METER (BEAKER) 123 mg/dL 70-110 TESTED AT [place] [id number] [facility] (test lkow=5142) [place] [address] POCT-GLUCOSE [id number] 12:52:00 Test Item Value Reference Range Comments POC-GLUCOSE METER (BEAKER) 167 mg/dL 70-110 TESTED AT [address] (test pziu=5138) [place] [address] POCT-GLUCOSE [id number] 09:05:00 Test Item Value Reference Range Comments POC-GLUCOSE METER (BEAKER) 128 mg/dL 70-110 TESTED AT [address] (test jfky=3111) [place] [address] CT, PELVIS, WO [id number] 08:42:00FINAL REPORT CT pelvis without contrast HISTORY: [...] MDReport Verified Date/Time: 08/16/2018 08:42:53 Reading Location: [facility] Radiology Reading Room BASIC METABOLIC [id number] 05:58:00 Test Item Value Reference Range Comments SODIUM (BEAKER) (test 137 meq/L 136-145 axvv=025) POTASSIUM (BEAKER) (test 4.2 meq/L 3.5-5.1 ybmh=920) CHLORIDE (BEAKER) (test 100 meq/L 98-107 slmb=681) CO2 (BEAKER) (test 28 meq/L 22-29 wlre=702) BLOOD UREA NITROGEN 48 mg/dL 7-21 (BEAKER) (test pxqp=168) CREATININE (BEAKER) (test 2.88 mg/dL 0.57-1.25 pmun=816) GLUCOSE RANDOM (BEAKER) 115 mg/dL 70-105 (test sqxm=681) CALCIUM (BEAKER) (test 8.7 mg/dL 8.4-10.2 ptlh=112) EGFR (BEAKER) (test 16 mL/min/1.73 sq m ESTIMATED GFR IS NOT jinc=7852) ACCURATE CREATININE CLEARANCE IN PREDICTING GLOMERULAR FILTRATION RATE. ESTIMATED GFR IS NOT APPLICABLE FOR DIALYSIS PATIENTS. POCT-GLUCOSE [id number] 03:05:00 Test Item Value Reference Range Comments POC-GLUCOSE METER (BEAKER) 157 mg/dL 70-110 TESTED AT [address] (test yiqx=5757) [facility] [address] POCT-GLUCOSE [id number] 20:57:00 Test Item Value Reference Range Comments POC-GLUCOSE METER (BEAKER) 106 mg/dL 70-110 TESTED AT [address] (test yfqw=8686) [facility] [address] POCT-GLUCOSE [id number] 18:13:00 Test Item Value Reference Range Comments POC-GLUCOSE METER (BEAKER) 237 mg/dL 70-110 TESTED AT [address] (test zeok=5727) [facility] [address] POCT-GLUCOSE [id number] 13:47:00 Test Item Value Reference Range Comments POC-GLUCOSE METER (BEAKER) 172 mg/dL 70-110 TESTED AT [address] (test ohyp=7851) [facility] [address] POCT-GLUCOSE [id number] 08:50:00 Test Item Value Reference Range Comments POC-GLUCOSE METER (BEAKER) 155 mg/dL 70-110 TESTED AT [address] (test sjha=2169) [place] [address] BASIC METABOLIC [id number] 06:36:00 Test Item Value Reference Range Comments SODIUM (BEAKER) (test 134 meq/L 136-145 rfjp=221) POTASSIUM (BEAKER) (test 3.6 meq/L 3.5-5.1 gagj=841) CHLORIDE (BEAKER) (test 100 meq/L 98-107 epub=422) CO2 (BEAKER) (test 26 meq/L 22-29 dkkp=742) BLOOD UREA NITROGEN 47 mg/dL 7-21 (BEAKER) (test yemd=901) CREATININE (BEAKER) (test 3.21 mg/dL 0.57-1.25 kvcn=890) GLUCOSE RANDOM (BEAKER) 139 mg/dL 70-105 (test welz=735) CALCIUM (BEAKER) (test 8.3 mg/dL 8.4-10.2 vwwg=515) EGFR (BEAKER) (test 14 mL/min/1.73 sq m ESTIMATED GFR IS NOT qcga=9403) ACCURATE CREATININE CLEARANCE IN PREDICTING GLOMERULAR FILTRATION RATE. ESTIMATED GFR IS NOT APPLICABLE FOR DIALYSIS PATIENTS. POCT-GLUCOSE [id number] 22:53:00 Test Item Value Reference Range Comments POC-GLUCOSE METER (BEAKER) 231 mg/dL 70-110 TESTED AT [address] (test kwqs=6047) [place] [address] POCT-GLUCOSE [id number] 17:51:00 Test Item Value Reference Range Comments POC-GLUCOSE METER (BEAKER) 169 mg/dL 70-110 TESTED AT [address] (test cxaj=5860) [place] [address] RESPIRATORY PANEL [id number] 15:45:00 Test Item Value Reference Range Comments HUMAN METAPNEUMOVIRUS (BEAKER) (test Not detected Not detected, Equivocal nnmf=6474) RHINOVIRUS (BEAKER) (test gygo=7671) Not detected Not detected, Equivocal INFLUENZA A (BEAKER) (test wzsh=9602) Not detected Not detected, Equivocal INFLUENZA A (NO SUBTYPE) (test Not detected, Equivocal nsgb=2011) INFLUENZA A SUBTYPE H1 (BEAKER) (test Not detected, Equivocal hlbq=5920) INFLUENZA A SUBTYPE H3 (BEAKER) (test Not detected, Equivocal feip=2071) INFLUENZA A SUBTYPE H1-2009 (BEAKER) Not detected, Equivocal (test zqhb=8368) INFLUENZA B (BEAKER) (test zhlq=4227) Not detected Not detected, Equivocal RESPIRATORY SYNCYTIAL VIRUS (BEAKER) Not detected Not detected, Equivocal (test ouyl=9219) PARAINFLUENZA VIRUS 1 (BEAKER) (test Not detected Not detected, Equivocal zwjc=1443) PARAINFLUENZA VIRUS 2 (BEAKER) (test Not detected Not detected, Equivocal mmae=6483) PARAINFLUENZA VIRUS 3 (BEAKER) (test Not detected Not detected, Equivocal hnjc=3343) PARAINFLUENZA VIRUS 4 (BEAKER) (test Not detected Not detected, Equivocal qtie=9626) ADENOVIRUS (BEAKER) (test haqm=7765) Not detected Not detected, Equivocal CORONAVIRUS 229E (BEAKER) (test Not detected Not detected, Equivocal lqzk=3420) CORONAVIRUS HKU1 (BEAKER) (test Not detected Not detected, Equivocal smhj=7146) CORONAVIRUS NL63 (BEAKER) (test Not detected Not detected, Equivocal zole=5944) CORONAVIRUS OC43 (BEAKER) (test Not detected Not detected, Equivocal lhjo=4480) BORDETELLA PERTUSSIS (BEAKER) (test Not detected Not detected, Equivocal pdyb=7150) CHLAMYDOPHILA PNEUMONIAE (BEAKER) (test Not detected Not detected, Equivocal iudc=5842) MYCOPLASMA PNEUMONIAE (BEAKER) (test Not detected Not detected, Equivocal dsyc=2175) Other viruses and bacteria not targeted by this PCR panel cannot be excluded; therefore clinical correlation and follow up of serology, culture results, and other molecular studies is required. The results are not intended to be used as the sole means for clinical diagnosis or patient management decisions. This sample was tested at the [facility] Molecular Diagnostics Laboratory using the ISVSArray Respiratory Panel. It is FDA cleared and has been verified and approved by the [facility] Molecular Diagnostics Laboratory for clinical use on nasopharyngeal swab specimens.The performance of the FilmArrayRP has not been established in individuals who received influenza vaccine. Recent administration ofa nasal influenza vaccine may cause false positive results for Influenza A and/orInfluenza B.URINALYSIS W/ REFLEX URINE [id number] 12:32 :00 Test Item Value Reference Range Comments COLOR (BEAKER) (test rezv=015) Light Yellow CLARITY (BEAKER) (test ivzv=647) Hazy SPECIFIC GRAVITY UA (BEAKER) (test wizk=499) 1.009 1.001-1.035 PH UA (BEAKER) (test uvgr=455) 6.0 5.0-8.0 PROTEIN UA (BEAKER) (test qgio=359) 30 mg/dL Negative GLUCOSE UA (BEAKER) (test ltcd=219) Negative Negative KETONES UA (BEAKER) (test sjau=241) Negative Negative BILIRUBIN UA (BEAKER) (test joia=695) Negative Negative BLOOD UA (BEAKER) (test vsxg=619) Small Negative NITRITE UA (BEAKER) (test xioa=951) Negative Negative LEUKOCYTE ESTERASE UA (BEAKER) (test wgum=806) Large Negative UROBILINOGEN UA (BEAKER) (test lfxu=969) 0.2 mg/dL 0.2-1.0 RBC UA (BEAKER) (test ztjh=889) 0 /HPF WBC UA (BEAKER) (test cjag=814) > /HPF BACTERIA (BEAKER) (test leyx=420) Many SQUAMOUS EPITHELIAL (BEAKER) (test vajx=460) < /HPF RENAL EPITHELIAL (BEAKER) (test cunl=3622) 15 /HPF WBC CASTS (BEAKER) (test cvij=6518) 14 /LPF SOURCE(BEAKER) (test oysf=4683) POCT-GLUCOSE [id number] 12:29:00 Test Item Value Reference Range Comments POC-GLUCOSE METER (BEAKER) 222 mg/dL 70-110 TESTED AT [place] [id number] [facility] (test ebyq=7210) [facility] [address] CBC W/PLT COUNT & AUTO [id number] 10:12:00 Test Item Value Reference Range Comments WHITE BLOOD CELL COUNT (BEAKER) (test bwli=582) 11.6 K/ L 3.5-10.5 RED BLOOD CELL COUNT (BEAKER) (test lcgh=120) 2.77 M/ L 3.93-5.22 HEMOGLOBIN (BEAKER) (test reuf=492) 8.7 GM/DL 11.2-15.7 HEMATOCRIT (BEAKER) (test tbex=747) 27.2 % 34.1-44.9 MEAN CORPUSCULAR VOLUME (BEAKER) (test fliw=387) 98.2 fL 79.4-94.8 MEAN CORPUSCULAR HEMOGLOBIN (BEAKER) (test 31.4 pg 25.6-32.2 psuv=208) MEAN CORPUSCULAR HEMOGLOBIN CONC (BEAKER) (test 32.0 GM/DL 32.2-35.5 utsh=733) RED CELL DISTRIBUTION WIDTH (BEAKER) (test 17.4 % 11.7-14.4 vzdt=484) PLATELET COUNT (BEAKER) (test wuam=533) 209 K/CU MM 150-450 MEAN PLATELET VOLUME (BEAKER) (test wjoz=885) 10.2 fL 9.4-12.3 NUCLEATED RED BLOOD CELLS (BEAKER) (test 1 /100 WBC 0-0 bkjo=974) (CELLAVISION MANUAL DIFF)2018-08-14 10:12:00 Test Item Value Reference Range Comments NEUTROPHILS - REL (CELLAVISION)(BEAKER) (test 86 % eeji=1790) LYMPHOCYTES - REL (CELLAVISION)(BEAKER) (test 4 % bpyi=6755) MONOCYTES - REL (CELLAVISION)(BEAKER) (test 5 % eidd=1668) EOSINOPHILS - REL (CELLAVISION)(BEAKER) (test 2 % azif=6383) METAMYELOCYTES - REL (CELLAVISION)(BEAKER) (test 2 % 0-0 nttk=5760) MYELOCYTES - REL (CELLAVISION)(BEAKER) (test 1 % 0-0 dggq=8848) NEUTROPHILS - ABS (CELLAVISION)(BEAKER) (test 9.98 K/ul 1.56-6.13 guxt=7570) LYMPHOCYTES - ABS (CELLAVISION)(BEAKER) (test 0.46 K/ul 1.18-3.74 keaj=2114) MONOCYTES - ABS (CELLAVISION)(BEAKER) (test 0.58 K/uL 0.24-0.36 pprg=4618) EOSINOPHILS - ABS (CELLAVISION)(BEAKER) (test 0.23 K/uL 0.04-0.36 ckjc=8466) METAMYELOCYTES - ABS (CELLAVISION)(BEAKER) (test 0.23 K/uL 0.00-0.00 qsnb=7734) MYELOCYTES-ABS (CELLAVISION)(BEAKER) (test 0.12 K/uL 0.00-0.00 gaif=7928) TOTAL COUNTED (BEAKER) (test luea=5952) 100 MANUAL NRBC PER 100 CELLS (BEAKER) (test 1 /100 WBC 0-0 bujz=1421) WBC MORPHOLOGY (BEAKER) (test liyx=331) Normal PLT MORPHOLOGY (BEAKER) (test mauk=617) Normal POLYCHROMATOPHILLIC RBCS(BEAKER) (test usfo=058) 1+ few HYPOCHROMIA (BEAKER) (test ifdw=027) 1+ few ARTIFACT (CELLAVISION)(BEAKER) (test fpbg=0283) Present PLATELET CONCENTRATION (CELLAVISION)(BEAKER) Adequate (test qwny=6010) Received comment: User comments: Slide comments:RAD, CHEST, 1 VIEW, NON [id number] 09:50:00Reason for exam:->coughShould this be performed at [...] Verified Date/Time: 08/14/2018 09:50:21 Reading Location : [facility] Radiology Reading Room POCT-GLUCOSE [id number] 08:20:00 Test Item Value Reference Range Comments POC-GLUCOSE METER (BEAKER) 126 mg/dL 70-[address] [facility] [address] [facility] (test udru=0148) [facility] [address] COMPREHENSIVE METABOLIC [id number] 07:13:00 Test Item Value Reference Range Comments TOTAL PROTEIN (BEAKER) 5.5 gm/dL 6.0-8.3 (test kgzy=195) ALBUMIN (BEAKER) (test 3.1 g/dL 3.5-5.0 gwza=3128) ALKALINE PHOSPHATASE 67 U/L 40-150 (BEAKER) (test hnqf=890) BILIRUBIN TOTAL (BEAKER) 0.6 mg/dL 0.2-1.2 (test uvqq=423) SODIUM (BEAKER) (test 135 meq/L 136-145 pihj=736) POTASSIUM (BEAKER) (test 3.8 meq/L 3.5-5.1 vlxh=391) CHLORIDE (BEAKER) (test 99 meq/L 98-107 pvcz=664) CO2 (BEAKER) (test 27 meq/L 22-29 zyjb=215) BLOOD UREA NITROGEN 45 mg/dL 7-21 (BEAKER) (test ypxg=603) CREATININE (BEAKER) (test 3.56 mg/dL 0.57-1.25 fdai=228) GLUCOSE RANDOM (BEAKER) 116 mg/dL 70-105 (test ablx=171) CALCIUM (BEAKER) (test 8.5 mg/dL 8.4-10.2 vako=732) AST (SGOT) (BEAKER) (test 30 U/L 5-34 ritz=550) ALT (SGPT) (BEAKER) (test 18 U/L 6-55 rano=959) EGFR (BEAKER) (test 12 mL/min/1.73 sq m ESTIMATED GFR IS NOT zdqj=5845) ACCURATE CREATININE CLEARANCE IN PREDICTING GLOMERULAR FILTRATION RATE. ESTIMATED GFR IS NOT APPLICABLE FOR DIALYSIS PATIENTS. [id number] 06:59:00 Test Item Value Reference Range Comments PHOSPHORUS (BEAKER) (test latv=081) 2.3 mg/dL 2.3-4.7 [id number] 06:59:00 Test Item Value Reference Range Comments MAGNESIUM (BEAKER) (test csdw=309) 2.0 mg/dL 1.6-2.6 CALCIUM, [id number] 06:47:00 Test Item Value Reference Range Comments CALCIUM IONIZED (BEAKER) (test hshh=217) 1.04 mmol/L 1.12-1.27 PH, BLOOD (BEAKER) (test cbzo=3880) 7.38 POCT-GLUCOSE [id number] 23:29:00 Test Item Value Reference Range Comments POC-GLUCOSE METER (BEAKER) 196 mg/dL 70-110 TESTED AT [address] (test pjgy=8073) [facility] [address] POCT-GLUCOSE [id number] 17:42:00 Test Item Value Reference Range Comments POC-GLUCOSE METER (BEAKER) 179 mg/dL 70-110 TESTED AT [address] (test iorm=4087) [facility] [address] POCT-GLUCOSE [id number] 12:19:00 Test Item Value Reference Range Comments POC-GLUCOSE METER (BEAKER) 189 mg/dL 70-110 TESTED AT [address] (test uzfj=1445) [facility] [address] POCT-GLUCOSE [id number] 08:34:00 Test Item Value Reference Range Comments POC-GLUCOSE METER (BEAKER) 119 mg/dL 70-110 TESTED AT [address] (test amxs=6806) [facility] [address] COMPREHENSIVE METABOLIC [id number] 02:54:00 Test Item Value Reference Range Comments TOTAL PROTEIN (BEAKER) 5.8 gm/dL 6.0-8.3 (test vtxy=858) ALBUMIN (BEAKER) (test 3.2 g/dL 3.5-5.0 wuht=9036) ALKALINE PHOSPHATASE 65 U/L 40-150 (BEAKER) (test ghdu=701) BILIRUBIN TOTAL (BEAKER) 0.8 mg/dL 0.2-1.2 (test atxr=429) SODIUM (BEAKER) (test 134 meq/L 136-145 fpwv=586) POTASSIUM (BEAKER) (test 3.6 meq/L 3.5-5.1 rlht=160) CHLORIDE (BEAKER) (test 100 meq/L 98-107 xvqt=749) CO2 (BEAKER) (test 25 meq/L 22-29 yfxh=340) BLOOD UREA NITROGEN 43 mg/dL 7-21 (BEAKER) (test lnye=966) CREATININE (BEAKER) (test 3.41 mg/dL 0.57-1.25 hutn=261) GLUCOSE RANDOM (BEAKER) 90 mg/dL 70-105 (test fmqj=639) CALCIUM (BEAKER) (test 8.4 mg/dL 8.4-10.2 lmyr=949) AST (SGOT) (BEAKER) (test 25 U/L 5-34 ovdl=022) ALT (SGPT) (BEAKER) (test 16 U/L 6-55 gwio=748) EGFR (BEAKER) (test 13 mL/min/1.73 sq m ESTIMATED GFR IS NOT zvya=3464) ACCURATE CREATININE CLEARANCE IN PREDICTING GLOMERULAR FILTRATION RATE. ESTIMATED GFR IS NOT APPLICABLE FOR DIALYSIS PATIENTS. [id number] 02:48:00 Test Item Value Reference Range Comments PHOSPHORUS (BEAKER) (test gucf=723) 2.2 mg/dL 2.3-4.7 [id number] 02:48:00 Test Item Value Reference Range Comments MAGNESIUM (BEAKER) (test ajlo=358) 1.5 mg/dL 1.6-2.6 CALCIUM, [id number] 02:32:00 Test Item Value Reference Range Comments CALCIUM IONIZED (BEAKER) (test ausr=435) 0.93 mmol/L 1.12-1.27 PH, BLOOD (BEAKER) (test pznu=5496) 7.53 CBC W/PLT COUNT & AUTO [id number] 02:31:00 Test Item Value Reference Range Comments WHITE BLOOD CELL COUNT (BEAKER) (test cujt=777) 12.6 K/ L 3.5-10.5 RED BLOOD CELL COUNT (BEAKER) (test dgzt=397) 2.95 M/ L 3.93-5.22 HEMOGLOBIN (BEAKER) (test aift=660) 9.3 GM/DL 11.2-15.7 HEMATOCRIT (BEAKER) (test dzwt=226) 29.5 % 34.1-44.9 MEAN CORPUSCULAR VOLUME (BEAKER) (test zsui=126) 100.0 fL 79.4-94.8 MEAN CORPUSCULAR HEMOGLOBIN (BEAKER) (test 31.5 pg 25.6-32.2 bgjl=187) MEAN CORPUSCULAR HEMOGLOBIN CONC (BEAKER) (test 31.5 GM/DL 32.2-35.5 ubhj=536) RED CELL DISTRIBUTION WIDTH (BEAKER) (test 17.2 % 11.7-14.4 wiev=700) PLATELET COUNT (BEAKER) (test piwg=020) 198 K/CU MM 150-450 MEAN PLATELET VOLUME (BEAKER) (test dwjl=435) 9.9 fL 9.4-12.3 NUCLEATED RED BLOOD CELLS (BEAKER) (test 2 /100 WBC 0-0 hksb=617) NEUTROPHILS RELATIVE PERCENT (BEAKER) (test 72 % ozeh=949) LYMPHOCYTES RELATIVE PERCENT (BEAKER) (test 12 % reef=562) MONOCYTES RELATIVE PERCENT (BEAKER) (test 12 % ckmv=875) EOSINOPHILS RELATIVE PERCENT (BEAKER) (test 1 % vgzu=417) BASOPHILS RELATIVE PERCENT (BEAKER) (test 0 % svrx=151) NEUTROPHILS ABSOLUTE COUNT (BEAKER) (test 9.10 K/ L 1.56-6.13 uggc=150) LYMPHOCYTES ABSOLUTE COUNT (BEAKER) (test 1.47 K/ L 1.18-3.74 sucb=459) MONOCYTES ABSOLUTE COUNT (BEAKER) (test 1.48 K/ L 0.24-0.36 prfv=791) EOSINOPHILS ABSOLUTE COUNT (BEAKER) (test 0.18 K/ L 0.04-0.36 hmiu=942) BASOPHILS ABSOLUTE COUNT (BEAKER) (test 0.04 K/ L 0.01-0.08 ezvs=818) IMMATURE GRANULOCYTES-RELATIVE PERCENT (BEAKER) 3 % 0-1 (test vtwe=9201) POCT-GLUCOSE [id number] 02:17:00 Test Item Value Reference Range Comments POC-GLUCOSE METER (BEAKER) 97 mg/dL 70-110 TESTED AT [address] (test xuhu=4514) [facility] [address] POCT-GLUCOSE [id number] 21:04:00 Test Item Value Reference Range Comments POC-GLUCOSE METER (BEAKER) 147 mg/dL 70-110 TESTED AT [address] (test kbqu=4366) [facility] [address] POCT-GLUCOSE [id number] 17:42:00 Test Item Value Reference Range Comments POC-GLUCOSE METER (BEAKER) 172 mg/dL 70-110 TESTED AT [address] (test sezy=4806) [facility] [address] POCT-GLUCOSE [id number] 12:05:00 Test Item Value Reference Range Comments POC-GLUCOSE METER (BEAKER) 124 mg/dL 70-110 TESTED AT [address] (test gmgd=4753) [facility] [address] POCT-GLUCOSE [id number] 07:37:00 Test Item Value Reference Range Comments POC-GLUCOSE METER (BEAKER) 94 mg/dL 70-110 TESTED AT [address] (test erzo=4353) [facility] [address] RAD, CHEST, 1 VIEW, NON [id number] 04:50:00Reason for exam:->SOBShould this be performed at [...] Verified Date/Time: 08/12/2018 04:50: 01 Reading Location: [address] Reading Room POCT-GLUCOSE [id number] 04:39:00 Test Item Value Reference Range Comments POC-GLUCOSE METER (BEAKER) 107 mg/dL 70-110 TESTED AT [address] (test fksl=7804) [facility] [address] COMPREHENSIVE METABOLIC [id number] 04:16:00 Test Item Value Reference Range Comments TOTAL PROTEIN (BEAKER) 5.6 gm/dL 6.0-8.3 (test yeds=796) ALBUMIN (BEAKER) (test 3.2 g/dL 3.5-5.0 umrh=2340) ALKALINE PHOSPHATASE 66 U/L 40-150 (BEAKER) (test qttp=979) BILIRUBIN TOTAL (BEAKER) 0.6 mg/dL 0.2-1.2 (test durr=791) SODIUM (BEAKER) (test 136 meq/L 136-145 vxcv=072) POTASSIUM (BEAKER) (test 4.0 meq/L 3.5-5.1 mepv=291) CHLORIDE (BEAKER) (test 102 meq/L 98-107 vwps=062) CO2 (BEAKER) (test 25 meq/L 22-29 mbre=006) BLOOD UREA NITROGEN 38 mg/dL 7-21 (BEAKER) (test qjpc=716) CREATININE (BEAKER) (test 3.33 mg/dL 0.57-1.25 bqsh=742) GLUCOSE RANDOM (BEAKER) 105 mg/dL 70-105 (test yhls=969) CALCIUM (BEAKER) (test 8.6 mg/dL 8.4-10.2 laok=763) AST (SGOT) (BEAKER) (test 25 U/L 5-34 wpov=918) ALT (SGPT) (BEAKER) (test 16 U/L 6-55 glqo=540) EGFR (BEAKER) (test 13 mL/min/1.73 sq m ESTIMATED GFR IS NOT epqt=4575) ACCURATE CREATININE CLEARANCE IN PREDICTING GLOMERULAR FILTRATION RATE. ESTIMATED GFR IS NOT APPLICABLE FOR DIALYSIS PATIENTS. [id number] 04:11:00 Test Item Value Reference Range Comments PHOSPHORUS (BEAKER) (test jfup=224) 2.9 mg/dL 2.3-4.7 [id number] 04:11:00 Test Item Value Reference Range Comments MAGNESIUM (BEAKER) (test ezxj=808) 1.9 mg/dL 1.6-2.6 CBC W/PLT COUNT & AUTO [id number] 03:57:00 Test Item Value Reference Range Comments WHITE BLOOD CELL COUNT (BEAKER) (test rdom=937) 12.6 K/ L 3.5-10.5 RED BLOOD CELL COUNT (BEAKER) (test srcl=220) 2.87 M/ L 3.93-5.22 HEMOGLOBIN (BEAKER) (test dsmh=975) 9.0 GM/DL 11.2-15.7 HEMATOCRIT (BEAKER) (test vjim=758) 28.6 % 34.1-44.9 MEAN CORPUSCULAR VOLUME (BEAKER) (test feub=802) 99.7 fL 79.4-94.8 MEAN CORPUSCULAR HEMOGLOBIN (BEAKER) (test 31.4 pg 25.6-32.2 ulxs=940) MEAN CORPUSCULAR HEMOGLOBIN CONC (BEAKER) (test 31.5 GM/DL 32.2-35.5 vepe=959) RED CELL DISTRIBUTION WIDTH (BEAKER) (test 16.1 % 11.7-14.4 tfmq=408) PLATELET COUNT (BEAKER) (test gnkk=112) 204 K/CU MM 150-450 MEAN PLATELET VOLUME (BEAKER) (test rmgb=671) 10.5 fL 9.4-12.3 NUCLEATED RED BLOOD CELLS (BEAKER) (test 5 /100 WBC 0-0 xnnv=253) NEUTROPHILS RELATIVE PERCENT (BEAKER) (test 77 % grkk=117) LYMPHOCYTES RELATIVE PERCENT (BEAKER) (test 9 % nsip=057) MONOCYTES RELATIVE PERCENT (BEAKER) (test 11 % qanf=744) EOSINOPHILS RELATIVE PERCENT (BEAKER) (test 2 % mrhf=074) BASOPHILS RELATIVE PERCENT (BEAKER) (test 0 % ppsi=019) NEUTROPHILS ABSOLUTE COUNT (BEAKER) (test 9.64 K/ L 1.56-6.13 remo=856) LYMPHOCYTES ABSOLUTE COUNT (BEAKER) (test 1.07 K/ L 1.18-3.74 kgho=093) MONOCYTES ABSOLUTE COUNT (BEAKER) (test 1.34 K/ L 0.24-0.36 gtnm=267) EOSINOPHILS ABSOLUTE COUNT (BEAKER) (test 0.19 K/ L 0.04-0.36 ezlh=800) BASOPHILS ABSOLUTE COUNT (BEAKER) (test 0.03 K/ L 0.01-0.08 hzxf=244) IMMATURE GRANULOCYTES-RELATIVE PERCENT (BEAKER) 2 % 0-1 (test ygsq=3597) CALCIUM, [id number] 03:25:00 Test Item Value Reference Range Comments CALCIUM IONIZED (BEAKER) (test xdtp=723) 1.10 mmol/L 1.12-1.27 PH, BLOOD (BEAKER) (test irfo=9676) 7.43 POCT-GLUCOSE [id number] 00:03:00 Test Item Value Reference Range Comments POC-GLUCOSE METER (BEAKER) 122 mg/dL 70-110 TESTED AT [address] (test pezh=6816) [place] [id number] POCT-GLUCOSE [id number] 21:32:00 Test Item Value Reference Range Comments POC-GLUCOSE METER (BEAKER) 104 mg/dL 70-110 TESTED AT [address] (test unux=9526) [place] [address] POCT-GLUCOSE [id number] 17:51:00 Test Item Value Reference Range Comments POC-GLUCOSE METER (BEAKER) 151 mg/dL 70-110 TESTED AT [address] (test tztl=4426) [place] [address] BASIC METABOLIC [id number] 16:24:00 Test Item Value Reference Range Comments SODIUM (BEAKER) (test 133 meq/L 136-145 kfyz=386) POTASSIUM (BEAKER) (test 4.1 meq/L 3.5-5.1 Specimen slightly xaem=362) hemolyzed CHLORIDE (BEAKER) (test 101 meq/L 98-107 gkcj=503) CO2 (BEAKER) (test 26 meq/L 22-29 fvqk=822) BLOOD UREA NITROGEN 34 mg/dL 7-21 (BEAKER) (test xufc=498) CREATININE (BEAKER) (test 3.12 mg/dL 0.57-1.25 Specimen slightly kvgu=711) hemolyzed GLUCOSE RANDOM (BEAKER) 167 mg/dL 70-105 (test wqfu=482) CALCIUM (BEAKER) (test 8.4 mg/dL 8.4-10.2 focg=874) EGFR (BEAKER) (test 14 mL/min/1.73 sq m ESTIMATED GFR IS NOT leky=9158) ACCURATE CREATININE CLEARANCE IN PREDICTING GLOMERULAR FILTRATION RATE. ESTIMATED GFR IS NOT APPLICABLE FOR DIALYSIS PATIENTS. [id number] 16:22:00 Test Item Value Reference Range Comments MAGNESIUM (BEAKER) (test 1.8 mg/dL 1.6-2.6 Specimen slightly hemolyzed soyk=321) POCT-GLUCOSE [id number] 11:45:00 Test Item Value Reference Range Comments POC-GLUCOSE METER (BEAKER) 141 mg/dL 70-110 TESTED AT [address] (test oiih=7828) [place] [address] POCT-GLUCOSE [id number] 07:51:00 Test Item Value Reference Range Comments POC-GLUCOSE METER (BEAKER) 112 mg/dL 70-110 TESTED AT [place] [id number] [facility] (test wpwm=2529) [place] [address] BASIC METABOLIC [id number] 05:18:00 Test Item Value Reference Range Comments SODIUM (BEAKER) (test 135 meq/L 136-145 qauw=604) POTASSIUM (BEAKER) (test 4.7 meq/L 3.5-5.1 Specimen moderately nrjq=579) hemolyzed CHLORIDE (BEAKER) (test 103 meq/L 98-107 lrrz=867) CO2 (BEAKER) (test 24 meq/L 22-29 euht=170) BLOOD UREA NITROGEN 26 mg/dL 7-21 (BEAKER) (test syow=071) CREATININE (BEAKER) (test 2.47 mg/dL 0.57-1.25 Specimen moderately eebq=565) hemolyzed GLUCOSE RANDOM (BEAKER) 101 mg/dL 70-105 (test mnat=069) CALCIUM (BEAKER) (test 8.8 mg/dL 8.4-10.2 fimk=620) EGFR (BEAKER) (test 19 mL/min/1.73 sq m ESTIMATED GFR IS NOT ubzr=5361) ACCURATE CREATININE CLEARANCE IN PREDICTING GLOMERULAR FILTRATION RATE. ESTIMATED GFR IS NOT APPLICABLE FOR DIALYSIS PATIENTS. [id number] 05:12:00 Test Item Value Reference Range Comments MAGNESIUM (BEAKER) (test 2.0 mg/dL 1.6-2.6 Specimen moderately hemolyzed iqkr=500) CBC W/PLT COUNT & AUTO [id number] 04:19:00 Test Item Value Reference Range Comments WHITE BLOOD CELL COUNT (BEAKER) (test lhqd=539) 14.3 K/ L 3.5-10.5 RED BLOOD CELL COUNT (BEAKER) (test xcar=533) 3.03 M/ L 3.93-5.22 HEMOGLOBIN (BEAKER) (test mkfu=386) 9.4 GM/DL 11.2-15.7 HEMATOCRIT (BEAKER) (test mluf=722) 29.2 % 34.1-44.9 MEAN CORPUSCULAR VOLUME (BEAKER) (test izis=297) 96.4 fL 79.4-94.8 MEAN CORPUSCULAR HEMOGLOBIN (BEAKER) (test 31.0 pg 25.6-32.2 vscc=847) MEAN CORPUSCULAR HEMOGLOBIN CONC (BEAKER) (test 32.2 GM/DL 32.2-35.5 lvum=059) RED CELL DISTRIBUTION WIDTH (BEAKER) (test 15.5 % 11.7-14.4 ajfp=042) PLATELET COUNT (BEAKER) (test jtal=711) 209 K/CU MM 150-450 MEAN PLATELET VOLUME (BEAKER) (test knzc=803) 10.4 fL 9.4-12.3 NUCLEATED RED BLOOD CELLS (BEAKER) (test 4 /100 WBC 0-0 hzhp=447) NEUTROPHILS RELATIVE PERCENT (BEAKER) (test 80 % cdys=238) LYMPHOCYTES RELATIVE PERCENT (BEAKER) (test 6 % gbky=879) MONOCYTES RELATIVE PERCENT (BEAKER) (test 11 % xqmf=978) EOSINOPHILS RELATIVE PERCENT (BEAKER) (test 1 % exql=074) BASOPHILS RELATIVE PERCENT (BEAKER) (test 0 % znyp=982) NEUTROPHILS ABSOLUTE COUNT (BEAKER) (test 11.46 K/ L 1.56-6.13 tenr=350) LYMPHOCYTES ABSOLUTE COUNT (BEAKER) (test 0.80 K/ L 1.18-3.74 bind=100) MONOCYTES ABSOLUTE COUNT (BEAKER) (test 1.60 K/ L 0.24-0.36 hpox=952) EOSINOPHILS ABSOLUTE COUNT (BEAKER) (test 0.07 K/ L 0.04-0.36 lwox=272) BASOPHILS ABSOLUTE COUNT (BEAKER) (test 0.03 K/ L 0.01-0.08 nvah=285) IMMATURE GRANULOCYTES-RELATIVE PERCENT (BEAKER) 3 % 0-1 (test peyq=9503) RAD, CHEST, 1 VIEW, NON [id number] 03:48:00Reason for exam:->SOBShould this be performed at the bedside?->YesFINAL REPORT RAD , CHEST, 1 VIEW, NON DEPT INDICATION: SOB COMPARISON: Prior day's exam FINDINGS : Portable frontal view of the chest. IMPRESSION: Support Lines: Stable. Lungs and pleura: Unchanged airspace and pleural opacities. No pneumothorax.Heart and mediastinum: Stable contours. Additional findings: None. Signed: [facility] Verified Date/Time: 08/11/2018 03:48:09 POCT -GLUCOSE [id number] 23:26:00 Test Item Value Reference Range Comments POC-GLUCOSE METER (BEAKER) 101 mg/dL 70-[address] [facility] [address] [facility] (test niki=5526) [facility] [address] POCT-GLUCOSE [id number] 18:11:00 Test Item Value Reference Range Comments POC-GLUCOSE METER (BEAKER) 171 mg/dL 70-110 TESTED AT [address] (test idru=9846) [facility] [address] BASIC METABOLIC [id number] 16:14:00 Test Item Value Reference Range Comments SODIUM (BEAKER) (test 134 meq/L 136-145 yjts=280) POTASSIUM (BEAKER) (test 4.6 meq/L 3.5-5.1 gshh=874) CHLORIDE (BEAKER) (test 102 meq/L 98-107 olgi=555) CO2 (BEAKER) (test 25 meq/L 22-29 gicd=181) BLOOD UREA NITROGEN 51 mg/dL 7-21 (BEAKER) (test ecbg=354) CREATININE (BEAKER) (test 3.89 mg/dL 0.57-1.25 lmcj=729) GLUCOSE RANDOM (BEAKER) 182 mg/dL 70-105 (test hosc=607) CALCIUM (BEAKER) (test 8.2 mg/dL 8.4-10.2 dcpo=780) EGFR (BEAKER) (test 11 mL/min/1.73 sq m ESTIMATED GFR IS NOT asyz=1932) ACCURATE CREATININE CLEARANCE IN PREDICTING GLOMERULAR FILTRATION RATE. ESTIMATED GFR IS NOT APPLICABLE FOR DIALYSIS PATIENTS. [id number] 16:07:00 Test Item Value Reference Range Comments MAGNESIUM (BEAKER) (test blmr=981) 2.0 mg/dL 1.6-2.6 LACTIC ACID, [id number] 15:23:00 Test Item Value Reference Range Comments LACTATE BLOOD ARTERIAL (2) (BEAKER) (test 0.9 mmol/L 0.5-2.2 cjmk=4756) RAD, CHEST, 1 VIEW, NON [id number] 15:07:00Reason for exam:-> hypoxemiaShould this be performed [...] MDReport Verified Date/Time: 08/10/2018 15:07:53 Reading Location: [facility] B1 [id number] Consult Reading Room 03: 07 PMBLOOD GAS, [id number] 14:53:00 Test Item Value Reference Range Comments PH ARTERIAL (BEAKER) (test zeer=146) 7.44 7.35-7.45 PCO2 ARTERIAL (BEAKER) (test goxr=455) 38 mmHg 35-45 PO2 ARTERIAL (BEAKER) (test duqq=509) 165 mmHg 80-90 O2 SATURATION ARTERIAL (BEAKER) (test exnw=586) 99.2 % 96.0-97.0 HCO3 ARTERIAL (BEAKER) (test osat=963) 26 mmol/L 21-29 BASE EXCESS ARTERIAL (BEAKER) (test iaqf=781) 1.1 mmol/L -2.0-3.0 PATIENT TEMPERATURE (BEAKER) (test qoad=7948) 36.4 C FIO2 (BEAKER) (test rupm=8265) 44.0 % POCT-GLUCOSE [id number] 12:20:00 Test Item Value Reference Range Comments POC-GLUCOSE METER (BEAKER) 208 mg/dL 70-110 TESTED AT [address] (test mmgy=8400) [facility] [address] CBC W/PLT COUNT & AUTO [id number] 08:56:00 Test Item Value Reference Range Comments WHITE BLOOD CELL COUNT (BEAKER) (test crzs=495) 12.2 K/ L 3.5-10.5 RED BLOOD CELL COUNT (BEAKER) (test eavq=112) 2.87 M/ L 3.93-5.22 HEMOGLOBIN (BEAKER) (test rpxz=713) 8.8 GM/DL 11.2-15.7 HEMATOCRIT (BEAKER) (test iaua=215) 27.4 % 34.1-44.9 MEAN CORPUSCULAR VOLUME (BEAKER) (test dmbg=686) 95.5 fL 79.4-94.8 MEAN CORPUSCULAR HEMOGLOBIN (BEAKER) (test 30.7 pg 25.6-32.2 eymx=584) MEAN CORPUSCULAR HEMOGLOBIN CONC (BEAKER) (test 32.1 GM/DL 32.2-35.5 whnk=447) RED CELL DISTRIBUTION WIDTH (BEAKER) (test 15.1 % 11.7-14.4 ftdr=550) PLATELET COUNT (BEAKER) (test ksco=220) 224 K/CU MM 150-450 MEAN PLATELET VOLUME (BEAKER) (test gjwh=467) 9.8 fL 9.4-12.3 NUCLEATED RED BLOOD CELLS (BEAKER) (test 1 /100 WBC 0-0 suab=766) (CELLAVISION MANUAL DIFF)2018-08-10 08:56:00 Test Item Value Reference Range Comments NEUTROPHILS - REL (CELLAVISION)(BEAKER) (test 80 % hwyd=6615) LYMPHOCYTES - REL (CELLAVISION)(BEAKER) (test 7 % iczy=0211) MONOCYTES - REL (CELLAVISION)(BEAKER) (test 10 % yymj=4057) EOSINOPHILS - REL (CELLAVISION)(BEAKER) (test 2 % axgz=9026) NEUTROPHILS - ABS (CELLAVISION)(BEAKER) (test 9.76 K/ul 1.56-6.13 luzo=8616) LYMPHOCYTES - ABS (CELLAVISION)(BEAKER) (test 0.85 K/ul 1.18-3.74 ufig=7599) MONOCYTES - ABS (CELLAVISION)(BEAKER) (test 1.22 K/uL 0.24-0.36 kqqp=7709) EOSINOPHILS - ABS (CELLAVISION)(BEAKER) (test 0.24 K/uL 0.04-0.36 gott=9849) TOTAL COUNTED (BEAKER) (test jfit=6350) 100 MANUAL NRBC PER 100 CELLS (BEAKER) (test 2 /100 WBC 0-0 eqrm=1188) PLT MORPHOLOGY (BEAKER) (test pleh=782) Normal TOXIC GRANULATION (BEAKER) (test xqkb=599) Present POLYCHROMATOPHILLIC RBCS(BEAKER) (test vzen=349) 1+ few ARTIFACT (CELLAVISION)(BEAKER) (test lddb=3671) Present PLATELET CONCENTRATION (CELLAVISION)(BEAKER) Adequate (test hgmi=4145) Received comment: User comments: Slide comments:ALEX CHEST, 1 VIEW, NON [id number] 08:03:00Reason for exam:->SOBShould this be performed [...] Navarro MDReport Verified Date/Time: 08:03:28 Reading Location: [facility] Radiology Reading Room POCT- GLUCOSE [id number] 07:51:00 Test Item Value Reference Range Comments POC-GLUCOSE METER (BEAKER) 129 mg/dL 70-110 TESTED AT [address] (test hfsp=7180) [facility] [address] POCT-GLUCOSE [id number] 06:38:00 Test Item Value Reference Range Comments POC-GLUCOSE METER (BEAKER) 193 mg/dL 70-110 TESTED AT [address] (test gskf=6525) [facility] [address] POCT-GLUCOSE [id number] 05:48:00 Test Item Value Reference Range Comments POC-GLUCOSE METER (BEAKER) 67 mg/dL 70-110 TESTED AT [address] (test fqtl=9909) [facility] [address] BASIC METABOLIC [id number] 05:07:00 Test Item Value Reference Range Comments SODIUM (BEAKER) (test 137 meq/L 136-145 uvxb=054) POTASSIUM (BEAKER) (test 4.1 meq/L 3.5-5.1 Specimen slightly imsj=291) hemolyzed CHLORIDE (BEAKER) (test 103 meq/L 98-107 yczb=873) CO2 (BEAKER) (test 26 meq/L 22-29 bpzt=028) BLOOD UREA NITROGEN 45 mg/dL 7-21 (BEAKER) (test eatx=662) CREATININE (BEAKER) (test 2.97 mg/dL 0.57-1.25 Specimen slightly xwzo=062) hemolyzed GLUCOSE RANDOM (BEAKER) 66 mg/dL 70-105 (test zrql=433) CALCIUM (BEAKER) (test 9.1 mg/dL 8.4-10.2 dmpd=450) EGFR (BEAKER) (test 15 mL/min/1.73 sq m ESTIMATED GFR IS NOT ylof=4142) ACCURATE CREATININE CLEARANCE IN PREDICTING GLOMERULAR FILTRATION RATE. ESTIMATED GFR IS NOT APPLICABLE FOR DIALYSIS PATIENTS. [id number] 05:06:00 Test Item Value Reference Range Comments MAGNESIUM (BEAKER) (test 2.0 mg/dL 1.6-2.6 Specimen slightly hemolyzed kqnd=938) POCT-GLUCOSE [id number] 20:02:00 Test Item Value Reference Range Comments POC-GLUCOSE METER (BEAKER) 95 mg/dL 70-110 TESTED AT [address] (test gcdo=3414) [place] [address] POCT-GLUCOSE [id number] 17:35:00 Test Item Value Reference Range Comments POC-GLUCOSE METER (BEAKER) 144 mg/dL 70-110 TESTED AT [address] (test vryf=4442) [place] [address] POCT-GLUCOSE [id number] 13:42:00 Test Item Value Reference Range Comments POC-GLUCOSE METER (BEAKER) 180 mg/dL 70-110 TESTED AT [address] (test yblw=1680) [place] [address] POCT-GLUCOSE [id number] 07:56:00 Test Item Value Reference Range Comments POC-GLUCOSE METER (BEAKER) 206 mg/dL 70-110 TESTED AT [address] (test sbit=2944) [place] [address] CBC W/PLT COUNT & AUTO [id number] 06:25:00 Test Item Value Reference Range Comments WHITE BLOOD CELL COUNT (BEAKER) (test duld=737) 13.6 K/ L 3.5-10.5 RED BLOOD CELL COUNT (BEAKER) (test nqwd=042) 2.66 M/ L 3.93-5.22 HEMOGLOBIN (BEAKER) (test dkhk=009) 8.2 GM/DL 11.2-15.7 HEMATOCRIT (BEAKER) (test ilvv=567) 25.5 % 34.1-44.9 MEAN CORPUSCULAR VOLUME (BEAKER) (test thef=364) 95.9 fL 79.4-94.8 MEAN CORPUSCULAR HEMOGLOBIN (BEAKER) (test 30.8 pg 25.6-32.2 wzwk=737) MEAN CORPUSCULAR HEMOGLOBIN CONC (BEAKER) (test 32.2 GM/DL 32.2-35.5 knpd=073) RED CELL DISTRIBUTION WIDTH (BEAKER) (test 14.9 % 11.7-14.4 cpqp=814) PLATELET COUNT (BEAKER) (test jkac=409) 278 K/CU MM 150-450 MEAN PLATELET VOLUME (BEAKER) (test owir=535) 10.2 fL 9.4-12.3 NUCLEATED RED BLOOD CELLS (BEAKER) (test 0 /100 WBC 0-0 qhlk=773) NEUTROPHILS RELATIVE PERCENT (BEAKER) (test 82 % dxnu=322) LYMPHOCYTES RELATIVE PERCENT (BEAKER) (test 5 % igcx=598) MONOCYTES RELATIVE PERCENT (BEAKER) (test 13 % uahz=242) EOSINOPHILS RELATIVE PERCENT (BEAKER) (test 0 % ejvz=121) BASOPHILS RELATIVE PERCENT (BEAKER) (test 0 % osyi=997) NEUTROPHILS ABSOLUTE COUNT (BEAKER) (test 11.05 K/ L 1.56-6.13 myst=839) LYMPHOCYTES ABSOLUTE COUNT (BEAKER) (test 0.63 K/ L 1.18-3.74 kcpb=289) MONOCYTES ABSOLUTE COUNT (BEAKER) (test 1.74 K/ L 0.24-0.36 fmey=523) EOSINOPHILS ABSOLUTE COUNT (BEAKER) (test 0.00 K/ L 0.04-0.36 smax=262) BASOPHILS ABSOLUTE COUNT (BEAKER) (test 0.01 K/ L 0.01-0.08 ucwd=337) IMMATURE GRANULOCYTES-RELATIVE PERCENT (BEAKER) 1 % 0-1 (test jslu=1471) BASIC METABOLIC [id number] 06:22:00 Test Item Value Reference Range Comments SODIUM (BEAKER) (test 135 meq/L 136-145 grzx=748) POTASSIUM (BEAKER) (test 4.8 meq/L 3.5-5.1 Specimen moderately vldm=026) hemolyzed CHLORIDE (BEAKER) (test 102 meq/L 98-107 iiuh=622) CO2 (BEAKER) (test 18 meq/L 22-29 bmyc=804) BLOOD UREA NITROGEN 84 mg/dL 7-21 (BEAKER) (test azbr=847) CREATININE (BEAKER) (test 4.72 mg/dL 0.57-1.25 Specimen moderately igyu=611) hemolyzed GLUCOSE RANDOM (BEAKER) 205 mg/dL 70-105 (test klad=979) CALCIUM (BEAKER) (test 8.5 mg/dL 8.4-10.2 oenf=645) EGFR (BEAKER) (test 9 mL/min/1.73 sq m ESTIMATED GFR IS NOT cxqv=0804) ACCURATE CREATININE CLEARANCE IN PREDICTING GLOMERULAR FILTRATION RATE. ESTIMATED GFR IS NOT APPLICABLE FOR DIALYSIS PATIENTS. RAD, CHEST, 1 VIEW, NON [id number] 05:59:00Reason for exam:->SOBShould this be performed at [...] Desire Méndezort Verified Date/Time: 08/09/2018 05:59:24 POCT-GLUCOSE [id number] 22:05:00 Test Item Value Reference Range Comments POC-GLUCOSE METER (BEAKER) 254 mg/dL 70-[address] [facility] [address] [facility] (test ycff=7699) [facility] [address] POCT-GLUCOSE [id number] 18:33:00 Test Item Value Reference Range Comments POC-GLUCOSE METER (BEAKER) 271 mg/dL 70-[address] [facility] [address] [facility] (test mstj=3207) [facility] [address] RAD, CHEST, 1 VIEW, NON [id number] 15:44:00Reason for exam:->IABP placementShould this be performed [...] the lower cervical spine. Signed: Heather Tracey [facility] Verified Date/Time: 08/08/2018 15:44:27 Reading Location: [facility] Mammo Reading Room RAD, CHEST, 1 VIEW, NON [id number] 13:42: 00Reason for exam:->IABP positionShould this be [...] Tracey Verified Date/Time: 08/08/2018 13:42:06 Reading Location: [facility] Mammo Reading Room POCT-GLUCOSE [id number] 13:28:00 Test Item Value Reference Range Comments POC-GLUCOSE METER (BEAKER) 294 mg/dL 70-110 TESTED AT [address] (test idbv=1927) [place] [address] RAD, CHEST, 1 VIEW, NON [id number] 08:20:00Reason for exam:->SOBShould this be performed at [...] Sauer Verified Date/Time: 08/08/2018 08:20:51 Reading Location: [facility] Radiology Reading Room POCT-GLUCOSE [id number] 07:57:00 Test Item Value Reference Range Comments POC-GLUCOSE METER (BEAKER) 286 mg/dL 70-110 TESTED AT [address] (test mnds=1201) [place] [address] CBC W/PLT COUNT & AUTO [id number] 05:11:00 Test Item Value Reference Range Comments WHITE BLOOD CELL COUNT (BEAKER) (test omsl=843) 11.2 K/ L 3.5-10.5 RED BLOOD CELL COUNT (BEAKER) (test wjey=207) 2.71 M/ L 3.93-5.22 HEMOGLOBIN (BEAKER) (test lnqf=357) 8.3 GM/DL 11.2-15.7 HEMATOCRIT (BEAKER) (test abwr=056) 26.1 % 34.1-44.9 MEAN CORPUSCULAR VOLUME (BEAKER) (test jcjj=798) 96.3 fL 79.4-94.8 MEAN CORPUSCULAR HEMOGLOBIN (BEAKER) (test 30.6 pg 25.6-32.2 taff=956) MEAN CORPUSCULAR HEMOGLOBIN CONC (BEAKER) (test 31.8 GM/DL 32.2-35.5 rlap=375) RED CELL DISTRIBUTION WIDTH (BEAKER) (test 14.0 % 11.7-14.4 wbkp=002) PLATELET COUNT (BEAKER) (test kljv=310) 227 K/CU MM 150-450 MEAN PLATELET VOLUME (BEAKER) (test pwex=194) 10.6 fL 9.4-12.3 NUCLEATED RED BLOOD CELLS (BEAKER) (test 0 /100 WBC 0-0 iltb=611) NEUTROPHILS RELATIVE PERCENT (BEAKER) (test 90 % bqou=418) LYMPHOCYTES RELATIVE PERCENT (BEAKER) (test 4 % gree=928) MONOCYTES RELATIVE PERCENT (BEAKER) (test 4 % kffj=792) EOSINOPHILS RELATIVE PERCENT (BEAKER) (test 0 % xrzu=244) BASOPHILS RELATIVE PERCENT (BEAKER) (test 0 % lyuv=715) NEUTROPHILS ABSOLUTE COUNT (BEAKER) (test 10.06 K/ L 1.56-6.13 jore=845) LYMPHOCYTES ABSOLUTE COUNT (BEAKER) (test 0.45 K/ L 1.18-3.74 pejt=176) MONOCYTES ABSOLUTE COUNT (BEAKER) (test 0.48 K/ L 0.24-0.36 ktuy=476) EOSINOPHILS ABSOLUTE COUNT (BEAKER) (test 0.00 K/ L 0.04-0.36 wmfw=270) BASOPHILS ABSOLUTE COUNT (BEAKER) (test 0.03 K/ L 0.01-0.08 tvfi=301) IMMATURE GRANULOCYTES-RELATIVE PERCENT (BEAKER) 2 % 0-1 (test fzgb=9689) [id number] 04:43:00 Test Item Value Reference Range Comments MAGNESIUM (BEAKER) (test axqo=620) 2.3 mg/dL 1.6-2.6 BASIC METABOLIC [id number] 04:43:00 Test Item Value Reference Range Comments SODIUM (BEAKER) (test 135 meq/L 136-145 gzje=715) POTASSIUM (BEAKER) (test 4.9 meq/L 3.5-5.1 lpzp=623) CHLORIDE (BEAKER) (test 102 meq/L 98-107 wdmu=579) CO2 (BEAKER) (test 18 meq/L 22-29 nybb=052) BLOOD UREA NITROGEN 68 mg/dL 7-21 (BEAKER) (test leyk=920) CREATININE (BEAKER) (test 3.54 mg/dL 0.57-1.25 sjms=931) GLUCOSE RANDOM (BEAKER) 267 mg/dL 70-105 (test tnyp=488) CALCIUM (BEAKER) (test 8.6 mg/dL 8.4-10.2 fbsh=992) EGFR (BEAKER) (test 12 mL/min/1.73 sq m ESTIMATED GFR IS NOT rwew=8762) ACCURATE CREATININE CLEARANCE IN PREDICTING GLOMERULAR FILTRATION RATE. ESTIMATED GFR IS NOT APPLICABLE FOR DIALYSIS PATIENTS. POCT-GLUCOSE [id number] 22:27:00 Test Item Value Reference Range Comments POC-GLUCOSE METER (BEAKER) 279 mg/dL 70-110 TESTED AT [address] (test yefi=2212) [facility] [address] BASIC METABOLIC [id number] 22:17:00 Test Item Value Reference Range Comments SODIUM (BEAKER) (test 133 meq/L 136-145 rjzn=831) POTASSIUM (BEAKER) (test 4.6 meq/L 3.5-5.1 uyts=025) CHLORIDE (BEAKER) (test 100 meq/L 98-107 lghc=197) CO2 (BEAKER) (test 18 meq/L 22-29 juhm=242) BLOOD UREA NITROGEN 64 mg/dL 7-21 (BEAKER) (test qjqe=434) CREATININE (BEAKER) (test 3.59 mg/dL 0.57-1.25 gydf=566) GLUCOSE RANDOM (BEAKER) 250 mg/dL 70-105 (test ajgg=807) CALCIUM (BEAKER) (test 8.3 mg/dL 8.4-10.2 lfup=166) EGFR (BEAKER) (test 12 mL/min/1.73 sq m ESTIMATED GFR IS NOT bfda=4724) ACCURATE CREATININE CLEARANCE IN PREDICTING GLOMERULAR FILTRATION RATE. ESTIMATED GFR IS NOT APPLICABLE FOR DIALYSIS PATIENTS. [id number] 22:13:00 Test Item Value Reference Range Comments MAGNESIUM (BEAKER) (test fttn=659) 2.1 mg/dL 1.6-2.6 [id number] 19:37:00 Test Item Value Reference Range Comments ACTIVATED CLOTTING TIME 268 sec TESTED AT [address] (BEAKER) (test milf=130) [place] [address] [id number] 18:30:00 Test Item Value Reference Range Comments ACTIVATED CLOTTING TIME 257 sec TESTED AT [address] (BEAKER) (test sldq=199) [place] [address] [id number] 17:58:00 Test Item Value Reference Range Comments ACTIVATED CLOTTING TIME 219 sec TESTED AT [address] (BEAKER) (test hqbh=382) [place] [address] [id number] 17:58:00 Test Item Value Reference Range Comments ACTIVATED CLOTTING TIME > sec OUTSIDE MEASURING RANGETESTED AT (BEAKER) (test qnrf=107) [place] [id number] POCT-GLUCOSE [id number] 12:23:00 Test Item Value Reference Range Comments POC-GLUCOSE METER (BEAKER) 169 mg/dL 70-110 TESTED AT [address] (test gune=1437) [place] [address] RAD, CHEST, 1 VIEW, NON [id number] 09:10:00Reason for exam:->SOBShould this be performed at the bedside?->YesFINAL REPORT Chest dated 08/07/2018 COMPARISON: 08/06/2018 Clinical Information: SOB Comment: Heart is enlarged. Pulmonary vasculature is indistinct. Interstitial disease is seen bilaterally suggestive of vascular congestion or pulmonary edema. There is small bilateral pleural effusion. IMPRESSION: No interval change. Signed: [place] Verified Date/Time: 08/07/2018 09:10:23 Reading Location: [facility] Radiology Reading Room POCT-GLUCOSE [id number] 07:49:00 Test Item Value Reference Range Comments POC-GLUCOSE METER (BEAKER) 165 mg/dL 70-110 TESTED AT [address] (test rrmy=6667) [facility] [address] COMPREHENSIVE METABOLIC [id number] 06:00:00 Test Item Value Reference Range Comments TOTAL PROTEIN (BEAKER) 6.0 gm/dL 6.0-8.3 (test oifd=761) ALBUMIN (BEAKER) (test 3.3 g/dL 3.5-5.0 xxlc=4394) ALKALINE PHOSPHATASE 58 U/L 40-150 (BEAKER) (test aqfm=975) BILIRUBIN TOTAL (BEAKER) 0.4 mg/dL 0.2-1.2 (test amxw=269) SODIUM (BEAKER) (test 135 meq/L 136-145 zupm=346) POTASSIUM (BEAKER) (test 4.1 meq/L 3.5-5.1 sctj=153) CHLORIDE (BEAKER) (test 102 meq/L 98-107 amqm=725) CO2 (BEAKER) (test 24 meq/L 22-29 rtpm=461) BLOOD UREA NITROGEN 52 mg/dL 7-21 (BEAKER) (test atjv=349) CREATININE (BEAKER) (test 3.23 mg/dL 0.57-1.25 wmrf=687) GLUCOSE RANDOM (BEAKER) 154 mg/dL 70-105 (test mqiz=042) CALCIUM (BEAKER) (test 8.3 mg/dL 8.4-10.2 cwdf=964) AST (SGOT) (BEAKER) (test 31 U/L 5-34 uduo=610) ALT (SGPT) (BEAKER) (test 17 U/L 6-55 anps=916) EGFR (BEAKER) (test 14 mL/min/1.73 sq m ESTIMATED GFR IS NOT wlmc=3282) ACCURATE CREATININE CLEARANCE IN PREDICTING GLOMERULAR FILTRATION RATE. ESTIMATED GFR IS NOT APPLICABLE FOR DIALYSIS PATIENTS. [id number] 05:56:00 Test Item Value Reference Range Comments PHOSPHORUS (BEAKER) (test mujn=538) 2.9 mg/dL 2.3-4.7 [id number] 05:56:00 Test Item Value Reference Range Comments MAGNESIUM (BEAKER) (test hqix=576) 2.0 mg/dL 1.6-2.6 CBC W/PLT COUNT & AUTO [id number] 05:42:00 Test Item Value Reference Range Comments WHITE BLOOD CELL COUNT (BEAKER) (test yfcj=508) 9.6 K/ L 3.5-10.5 RED BLOOD CELL COUNT (BEAKER) (test ykgk=029) 2.84 M/ L 3.93-5.22 HEMOGLOBIN (BEAKER) (test okki=370) 8.8 GM/DL 11.2-15.7 HEMATOCRIT (BEAKER) (test xtdt=591) 27.2 % 34.1-44.9 MEAN CORPUSCULAR VOLUME (BEAKER) (test hyfn=029) 95.8 fL 79.4-94.8 MEAN CORPUSCULAR HEMOGLOBIN (BEAKER) (test 31.0 pg 25.6-32.2 ptqf=345) MEAN CORPUSCULAR HEMOGLOBIN CONC (BEAKER) (test 32.4 GM/DL 32.2-35.5 smhx=090) RED CELL DISTRIBUTION WIDTH (BEAKER) (test 14.1 % 11.7-14.4 innd=183) PLATELET COUNT (BEAKER) (test ggym=583) 218 K/CU MM 150-450 MEAN PLATELET VOLUME (BEAKER) (test nugr=024) 10.2 fL 9.4-12.3 NUCLEATED RED BLOOD CELLS (BEAKER) (test 0 /100 WBC 0-0 vzch=407) NEUTROPHILS RELATIVE PERCENT (BEAKER) (test 76 % vmus=968) LYMPHOCYTES RELATIVE PERCENT (BEAKER) (test 9 % xtqp=546) MONOCYTES RELATIVE PERCENT (BEAKER) (test 12 % rfkg=374) EOSINOPHILS RELATIVE PERCENT (BEAKER) (test 1 % xqdu=574) BASOPHILS RELATIVE PERCENT (BEAKER) (test 0 % kift=376) NEUTROPHILS ABSOLUTE COUNT (BEAKER) (test 7.35 K/ L 1.56-6.13 oobz=228) LYMPHOCYTES ABSOLUTE COUNT (BEAKER) (test 0.84 K/ L 1.18-3.74 rkve=052) MONOCYTES ABSOLUTE COUNT (BEAKER) (test 1.16 K/ L 0.24-0.36 xkho=330) EOSINOPHILS ABSOLUTE COUNT (BEAKER) (test 0.13 K/ L 0.04-0.36 zonz=270) BASOPHILS ABSOLUTE COUNT (BEAKER) (test 0.04 K/ L 0.01-0.08 rafm=831) IMMATURE GRANULOCYTES-RELATIVE PERCENT (BEAKER) 1 % 0-1 (test kyae=6900) CALCIUM, [id number] 05:32:00 Test Item Value Reference Range Comments CALCIUM IONIZED (BEAKER) (test tqzk=504) 1.12 mmol/L 1.12-1.27 PH, BLOOD (BEAKER) (test eksh=6713) 7.36 POCT-GLUCOSE [id number] 21:35:00 Test Item Value Reference Range Comments POC-GLUCOSE METER (BEAKER) 143 mg/dL 70-110 TESTED AT [address] (test aokr=3571) [facility] [address] POCT-GLUCOSE [id number] 17:31:00 Test Item Value Reference Range Comments POC-GLUCOSE METER (BEAKER) 105 mg/dL 70-110 TESTED AT [address] (test wral=6127) [facility] [address] POCT-GLUCOSE [id number] 12:46:00 Test Item Value Reference Range Comments POC-GLUCOSE METER (BEAKER) 159 mg/dL 70-110 TESTED AT [address] (test nbeu=1203) [facility] [address] POCT-GLUCOSE [id number] 07:40:00 Test Item Value Reference Range Comments POC-GLUCOSE METER (BEAKER) 120 mg/dL 70-110 TESTED AT [address] (test agic=2684) [facility] [address] [id number] 04:52:00 Test Item Value Reference Range Comments MAGNESIUM (BEAKER) (test eceq=137) 1.8 mg/dL 1.6-2.6 BASIC METABOLIC [id number] 04:52:00 Test Item Value Reference Range Comments SODIUM (BEAKER) (test 137 meq/L 136-145 fwqy=342) POTASSIUM (BEAKER) (test 3.8 meq/L 3.5-5.1 mavr=915) CHLORIDE (BEAKER) (test 105 meq/L 98-107 jsbh=880) CO2 (BEAKER) (test 23 meq/L 22-29 vwas=152) BLOOD UREA NITROGEN 51 mg/dL 7-21 (BEAKER) (test kbvd=637) CREATININE (BEAKER) (test 2.93 mg/dL 0.57-1.25 irjm=352) GLUCOSE RANDOM (BEAKER) 108 mg/dL 70-105 (test gqgq=893) CALCIUM (BEAKER) (test 8.4 mg/dL 8.4-10.2 czlw=717) EGFR (BEAKER) (test 16 mL/min/1.73 sq m ESTIMATED GFR IS NOT ftar=4916) ACCURATE CREATININE CLEARANCE IN PREDICTING GLOMERULAR FILTRATION RATE. ESTIMATED GFR IS NOT APPLICABLE FOR DIALYSIS PATIENTS. RAD, CHEST, 1 VIEW, NON [id number] 04:45:00Reason for exam:->SOBShould this be performed at [...] [place] Verified Date/Time: 08/06/2018 04:45:08 Reading Location: [address] Reading Room [id number] 04:31:00 Test Item Value Reference Range Comments PARTIAL THROMBOPLASTIN TIME (BEAKER) (test 45.7 seconds 22.5-36.0 jkws=735) 4 hours after the start of continuous infusion and 4 hours after any rate changeCBC W/PLT COUNT & AUTO [id number] 04:23:00 Test Item Value Reference Range Comments WHITE BLOOD CELL COUNT (BEAKER) (test etrv=368) 8.8 K/ L 3.5-10.5 RED BLOOD CELL COUNT (BEAKER) (test ivfv=480) 2.95 M/ L 3.93-5.22 HEMOGLOBIN (BEAKER) (test tjid=684) 9.1 GM/DL 11.2-15.7 HEMATOCRIT (BEAKER) (test zpij=624) 27.9 % 34.1-44.9 MEAN CORPUSCULAR VOLUME (BEAKER) (test uahp=175) 94.6 fL 79.4-94.8 MEAN CORPUSCULAR HEMOGLOBIN (BEAKER) (test 30.8 pg 25.6-32.2 qpix=834) MEAN CORPUSCULAR HEMOGLOBIN CONC (BEAKER) (test 32.6 GM/DL 32.2-35.5 ivhh=013) RED CELL DISTRIBUTION WIDTH (BEAKER) (test 13.4 % 11.7-14.4 samm=282) PLATELET COUNT (BEAKER) (test nvkd=852) 223 K/CU MM 150-450 MEAN PLATELET VOLUME (BEAKER) (test ckbc=206) 10.0 fL 9.4-12.3 NUCLEATED RED BLOOD CELLS (BEAKER) (test 0 /100 WBC 0-0 tlnh=191) NEUTROPHILS RELATIVE PERCENT (BEAKER) (test 75 % wndx=954) LYMPHOCYTES RELATIVE PERCENT (BEAKER) (test 12 % yrrq=415) MONOCYTES RELATIVE PERCENT (BEAKER) (test 10 % ornu=306) EOSINOPHILS RELATIVE PERCENT (BEAKER) (test 2 % ixsl=005) BASOPHILS RELATIVE PERCENT (BEAKER) (test 0 % rgyk=705) NEUTROPHILS ABSOLUTE COUNT (BEAKER) (test 6.55 K/ L 1.56-6.13 hvof=955) LYMPHOCYTES ABSOLUTE COUNT (BEAKER) (test 1.08 K/ L 1.18-3.74 kxrw=600) MONOCYTES ABSOLUTE COUNT (BEAKER) (test 0.89 K/ L 0.24-0.36 apau=419) EOSINOPHILS ABSOLUTE COUNT (BEAKER) (test 0.16 K/ L 0.04-0.36 ioqa=704) BASOPHILS ABSOLUTE COUNT (BEAKER) (test 0.03 K/ L 0.01-0.08 spaa=172) IMMATURE GRANULOCYTES-RELATIVE PERCENT (BEAKER) 1 % 0-1 (test zldx=2443) POCT-GLUCOSE [id number] 21:47:00 Test Item Value Reference Range Comments POC-GLUCOSE METER (BEAKER) 184 mg/dL 70-110 TESTED AT [address] (test cnrq=3224) [facility] [address] POCT-GLUCOSE [id number] 17:15:00 Test Item Value Reference Range Comments POC-GLUCOSE METER (BEAKER) 120 mg/dL 70-110 TESTED AT [address] (test rnbz=2105) [facility] [address] POCT-GLUCOSE [id number] 12:00:00 Test Item Value Reference Range Comments POC-GLUCOSE METER (BEAKER) 226 mg/dL 70-[address] [facility] [address] [facility] (test anul=4772) [facility] [address] POCT-GLUCOSE [id number] 07:45:00 Test Item Value Reference Range Comments POC-GLUCOSE METER (BEAKER) 192 mg/dL 70-[address] [facility] [address] [facility] (test fpdj=9793) [facility] [address] RAD, CHEST, 1 VIEW, NON [id number] 07:45:00Reason for exam:->SOBShould this be performed at [...] contours. Additionalfindings: None. Signed: JR Mary, [facility] Verified Date/Time: 08/05/2018 07:45: 53 Reading Location: [address] Neuro Reading Room [id number] 06:25:00 Test Item Value Reference Range Comments MAGNESIUM (BEAKER) (test nnpt=088) 1.8 mg/dL 1.6-2.6 BASIC METABOLIC [id number] 06:25:00 Test Item Value Reference Range Comments SODIUM (BEAKER) (test 138 meq/L 136-145 opcd=238) POTASSIUM (BEAKER) (test 3.9 meq/L 3.5-5.1 awnb=640) CHLORIDE (BEAKER) (test 107 meq/L 98-107 wqfp=515) CO2 (BEAKER) (test 23 meq/L 22-29 szdu=016) BLOOD UREA NITROGEN 53 mg/dL 7-21 (BEAKER) (test hqot=412) CREATININE (BEAKER) (test 2.79 mg/dL 0.57-1.25 ounx=800) GLUCOSE RANDOM (BEAKER) 134 mg/dL 70-105 (test zlvr=416) CALCIUM (BEAKER) (test 8.3 mg/dL 8.4-10.2 etdt=903) EGFR (BEAKER) (test 16 mL/min/1.73 sq m ESTIMATED GFR IS NOT wkqn=2666) ACCURATE CREATININE CLEARANCE IN PREDICTING GLOMERULAR FILTRATION RATE. ESTIMATED GFR IS NOT APPLICABLE FOR DIALYSIS PATIENTS. CBC W/PLT COUNT & AUTO [id number] 05:59:00 Test Item Value Reference Range Comments WHITE BLOOD CELL COUNT (BEAKER) (test wppl=445) 8.1 K/ L 3.5-10.5 RED BLOOD CELL COUNT (BEAKER) (test msjw=850) 3.09 M/ L 3.93-5.22 HEMOGLOBIN (BEAKER) (test jznf=691) 9.5 GM/DL 11.2-15.7 HEMATOCRIT (BEAKER) (test laxc=095) 30.1 % 34.1-44.9 MEAN CORPUSCULAR VOLUME (BEAKER) (test zsib=415) 97.4 fL 79.4-94.8 MEAN CORPUSCULAR HEMOGLOBIN (BEAKER) (test 30.7 pg 25.6-32.2 ierb=109) MEAN CORPUSCULAR HEMOGLOBIN CONC (BEAKER) (test 31.6 GM/DL 32.2-35.5 mxrc=390) RED CELL DISTRIBUTION WIDTH (BEAKER) (test 13.5 % 11.7-14.4 ebum=253) PLATELET COUNT (BEAKER) (test tduj=496) 172 K/CU MM 150-450 MEAN PLATELET VOLUME (BEAKER) (test pbtt=689) 10.1 fL 9.4-12.3 NUCLEATED RED BLOOD CELLS (BEAKER) (test 0 /100 WBC 0-0 xhhj=125) NEUTROPHILS RELATIVE PERCENT (BEAKER) (test 75 % eqst=983) LYMPHOCYTES RELATIVE PERCENT (BEAKER) (test 12 % vsvs=323) MONOCYTES RELATIVE PERCENT (BEAKER) (test 11 % zzdi=473) EOSINOPHILS RELATIVE PERCENT (BEAKER) (test 2 % pzif=297) BASOPHILS RELATIVE PERCENT (BEAKER) (test 0 % zwtp=205) NEUTROPHILS ABSOLUTE COUNT (BEAKER) (test 6.06 K/ L 1.56-6.13 jvuh=479) LYMPHOCYTES ABSOLUTE COUNT (BEAKER) (test 0.95 K/ L 1.18-3.74 gmff=398) MONOCYTES ABSOLUTE COUNT (BEAKER) (test 0.85 K/ L 0.24-0.36 pinf=523) EOSINOPHILS ABSOLUTE COUNT (BEAKER) (test 0.13 K/ L 0.04-0.36 mlou=105) BASOPHILS ABSOLUTE COUNT (BEAKER) (test 0.03 K/ L 0.01-0.08 wrrc=260) IMMATURE GRANULOCYTES-RELATIVE PERCENT (BEAKER) 1 % 0-1 (test dszl=7336) POCT-GLUCOSE [id number] 22:07:00 Test Item Value Reference Range Comments POC-GLUCOSE METER (BEAKER) 183 mg/dL 70-110 TESTED AT [address] (test cezx=7869) [place] [address] POCT-GLUCOSE [id number] 18:23:00 Test Item Value Reference Range Comments POC-GLUCOSE METER (BEAKER) 174 mg/dL 70-110 TESTED AT [address] (test ruzs=9060) [place] [address] C. DIFFICILE GDH [id number] 15:36:00 Test Item Value Reference Range Comments CDT TOXIN (test Negative Negative urtk=[id number]) CDT GDH ANTIGEN (test Positive Negative C. difficile present but toxin hmnr=[id number]) not detected. Indicates colonization with non-toxigenic strain [...] performance was done by the [facility] Microbiology Lab prior to clinical use.URINALYSIS W/ REFLEX URINE [id number] 15:18:00 Test Item Value Reference Range Comments COLOR (BEAKER) (test atrp=665) Yellow CLARITY (BEAKER) (test qzqy=899) Hazy SPECIFIC GRAVITY UA (BEAKER) (test ggxy=156) 1.017 1.001-1.035 PH UA (BEAKER) (test ywau=601) 5.5 5.0-8.0 PROTEIN UA (BEAKER) (test xexy=673) 30 mg/dL Negative GLUCOSE UA (BEAKER) (test qack=113) Negative Negative KETONES UA (BEAKER) (test vrad=816) Negative Negative BILIRUBIN UA (BEAKER) (test zdkt=767) Negative Negative BLOOD UA (BEAKER) (test cnln=209) Trace Negative NITRITE UA (BEAKER) (test uvmj=690) Negative Negative LEUKOCYTE ESTERASE UA (BEAKER) (test ffjs=473) Large Negative UROBILINOGEN UA (BEAKER) (test uvfl=208) 0.2 mg/dL 0.2-1.0 RBC UA (BEAKER) (test mxqx=623) 0 /HPF WBC UA (BEAKER) (test iguk=910) 190 /HPF BACTERIA (BEAKER) (test xddp=400) Many MUCUS (BEAKER) (test elnl=5071) Rare SQUAMOUS EPITHELIAL (BEAKER) (test lzxg=788) 1 /HPF HYALINE CASTS (BEAKER) (test pise=184) 4 /LPF SOURCE(BEAKER) (test tjfn=1923) POCT-GLUCOSE [id number] 13:03:00 Test Item Value Reference Range Comments POC-GLUCOSE METER (BEAKER) 213 mg/dL 70-110 TESTED AT [address] (test pyzv=2212) [place] [address] OCCULT BLOOD, [id number] 11:58:00 Test Item Value Reference Range Comments FECAL OCCULT BLOOD (BEAKER) (test uuyd=280) Positive Negative POCT-GLUCOSE [id number] 08:00:00 Test Item Value Reference Range Comments POC-GLUCOSE METER (BEAKER) 127 mg/dL 70-110 TESTED AT [address] (test cggp=2558) [place] [address] TROPONIN [id number] 07:07:00 Test Item Value Reference Range Comments TROPONIN I (BEAKER) (test qmmh=532) 44.85 ng/mL 0.00-0.03 Troponin I (TnI) levels [...] and persistent tachyarrhythmia.RAD, CHEST, 1 VIEW, NON [id number] 07:00:00Reason for exam:->SOBShould this be performed at [...] Verified Date/Time: 08/04/2018 07:00: 06 Reading Location: [address] Neuro Reading Room COMPREHENSIVE METABOLIC [id number] 06:56:00 Test Item Value Reference Range Comments TOTAL PROTEIN (BEAKER) 5.7 gm/dL 6.0-8.3 (test djkn=643) ALBUMIN (BEAKER) (test 3.2 g/dL 3.5-5.0 bnxi=7535) ALKALINE PHOSPHATASE 55 U/L 40-150 (BEAKER) (test kphr=927) BILIRUBIN TOTAL (BEAKER) 0.5 mg/dL 0.2-1.2 (test gmks=982) SODIUM (BEAKER) (test 138 meq/L 136-145 laie=713) POTASSIUM (BEAKER) (test 3.7 meq/L 3.5-5.1 uefn=609) CHLORIDE (BEAKER) (test 107 meq/L 98-107 eapn=734) CO2 (BEAKER) (test 24 meq/L 22-29 lnsu=356) BLOOD UREA NITROGEN 61 mg/dL 7-21 (BEAKER) (test dfbz=784) CREATININE (BEAKER) (test 2.88 mg/dL 0.57-1.25 rspc=703) GLUCOSE RANDOM (BEAKER) 122 mg/dL 70-105 (test gifo=708) CALCIUM (BEAKER) (test 8.1 mg/dL 8.4-10.2 wnjh=523) AST (SGOT) (BEAKER) (test 71 U/L 5-34 nrzw=583) ALT (SGPT) (BEAKER) (test 23 U/L 6-55 hgjm=152) EGFR (BEAKER) (test 16 mL/min/1.73 sq m ESTIMATED GFR IS NOT hodu=9812) ACCURATE CREATININE CLEARANCE IN PREDICTING GLOMERULAR FILTRATION RATE. ESTIMATED GFR IS NOT APPLICABLE FOR DIALYSIS PATIENTS. [id number] 06:55:00 Test Item Value Reference Range Comments PHOSPHORUS (BEAKER) (test ybsw=428) 2.8 mg/dL 2.3-4.7 [id number] 06:55:00 Test Item Value Reference Range Comments MAGNESIUM (BEAKER) (test zqus=540) 1.9 mg/dL 1.6-2.6 CBC W/PLT COUNT & AUTO [id number] 06:12:00 Test Item Value Reference Range Comments WHITE BLOOD CELL COUNT (BEAKER) (test ujie=384) 10.1 K/ L 3.5-10.5 RED BLOOD CELL COUNT (BEAKER) (test dtfw=772) 3.03 M/ L 3.93-5.22 HEMOGLOBIN (BEAKER) (test kmfz=652) 9.3 GM/DL 11.2-15.7 HEMATOCRIT (BEAKER) (test nxjh=972) 28.5 % 34.1-44.9 MEAN CORPUSCULAR VOLUME (BEAKER) (test ksfr=496) 94.1 fL 79.4-94.8 MEAN CORPUSCULAR HEMOGLOBIN (BEAKER) (test 30.7 pg 25.6-32.2 nfsr=833) MEAN CORPUSCULAR HEMOGLOBIN CONC (BEAKER) (test 32.6 GM/DL 32.2-35.5 mzue=253) RED CELL DISTRIBUTION WIDTH (BEAKER) (test 13.4 % 11.7-14.4 hncg=222) PLATELET COUNT (BEAKER) (test okee=699) 151 K/CU MM 150-450 MEAN PLATELET VOLUME (BEAKER) (test tokj=945) 10.5 fL 9.4-12.3 NUCLEATED RED BLOOD CELLS (BEAKER) (test 0 /100 WBC 0-0 dybm=533) NEUTROPHILS RELATIVE PERCENT (BEAKER) (test 77 % phtd=739) LYMPHOCYTES RELATIVE PERCENT (BEAKER) (test 11 % itaa=836) MONOCYTES RELATIVE PERCENT (BEAKER) (test 11 % prxn=742) EOSINOPHILS RELATIVE PERCENT (BEAKER) (test 1 % atfp=460) BASOPHILS RELATIVE PERCENT (BEAKER) (test 0 % xyvg=442) NEUTROPHILS ABSOLUTE COUNT (BEAKER) (test 7.78 K/ L 1.56-6.13 afkj=147) LYMPHOCYTES ABSOLUTE COUNT (BEAKER) (test 1.08 K/ L 1.18-3.74 ijbk=202) MONOCYTES ABSOLUTE COUNT (BEAKER) (test 1.09 K/ L 0.24-0.36 frtr=297) EOSINOPHILS ABSOLUTE COUNT (BEAKER) (test 0.07 K/ L 0.04-0.36 lhhb=455) BASOPHILS ABSOLUTE COUNT (BEAKER) (test 0.02 K/ L 0.01-0.08 oxzc=147) IMMATURE GRANULOCYTES-RELATIVE PERCENT (BEAKER) 1 % 0-1 (test ibke=7851) CALCIUM, [id number] 05:58:00 Test Item Value Reference Range Comments CALCIUM IONIZED (BEAKER) (test fixr=500) 1.11 mmol/L 1.12-1.27 PH, BLOOD (BEAKER) (test iwgh=0969) 7.38 POCT-GLUCOSE [id number] 22:08:00 Test Item Value Reference Range Comments POC-GLUCOSE METER (BEAKER) 163 mg/dL 70-110 TESTED AT [address] (test yffw=5371) [place] [address] POCT-GLUCOSE [id number] 18:05:00 Test Item Value Reference Range Comments POC-GLUCOSE METER (BEAKER) 215 mg/dL 70-110 TESTED AT [address] (test ujfo=6656) [place] [id number] POCT-GLUCOSE [id number] 12:33:00 Test Item Value Reference Range Comments POC-GLUCOSE METER (BEAKER) 287 mg/dL 70-110 TESTED AT [address] (test qgqn=7348) [place] [address] TROPONIN [id number] 10:28:00 Test Item Value Reference Range Comments TROPONIN I (BEAKER) (test mbqv=562) 56.87 ng/mL 0.00-0.03 Troponin I (TnI) levels [...] Range Comments CREATINE KINASE TOTAL (BEAKER) (test kuve=923) 601 U/L 29-200 RAD, CHEST, 1 VIEW, NON [id number] 08:51:00Reason for exam:->SOBShould this be performed at [...] MDReport Verified Date/Time: 08/03/2018 08:51:22 Reading Location: [facility] Radiology Reading Room [id number] 03:08:00 Test Item Value Reference Range Comments FERRITIN (BEAKER) (test rmmf=154) 207 ng/mL 5-275 VITAMIN B12 AND [id number] 03:08:00 Test Item Value Reference Range Comments VITAMIN B12 (BEAKER) (test grtg=061) 212 pg/mL 213-816 FOLATE (BEAKER) (test ajri=725) 15.1 ng/mL >=7.0 COMPREHENSIVE METABOLIC [id number] 02:38:00 Test Item Value Reference Range Comments TOTAL PROTEIN (BEAKER) 5.7 gm/dL 6.0-8.3 (test fmni=647) ALBUMIN (BEAKER) (test 3.2 g/dL 3.5-5.0 ennj=8912) ALKALINE PHOSPHATASE 55 U/L 40-150 (BEAKER) (test hdyp=481) BILIRUBIN TOTAL (BEAKER) 0.5 mg/dL 0.2-1.2 (test ijxg=925) SODIUM (BEAKER) (test 139 meq/L 136-145 wufr=504) POTASSIUM (BEAKER) (test 4.6 meq/L 3.5-5.1 yxjv=133) CHLORIDE (BEAKER) (test 107 meq/L 98-107 jvny=408) CO2 (BEAKER) (test 24 meq/L 22-29 gflx=145) BLOOD UREA NITROGEN 63 mg/dL 7-21 (BEAKER) (test drvl=776) CREATININE (BEAKER) (test 2.96 mg/dL 0.57-1.25 apya=381) GLUCOSE RANDOM (BEAKER) 205 mg/dL 70-105 (test wlpj=540) CALCIUM (BEAKER) (test 8.7 mg/dL 8.4-10.2 hlnr=175) AST (SGOT) (BEAKER) (test 138 U/L 5-34 sowi=526) ALT (SGPT) (BEAKER) (test 28 U/L 6-55 epmd=736) EGFR (BEAKER) (test 15 mL/min/1.73 sq m ESTIMATED GFR IS NOT tzjk=5804) ACCURATE CREATININE CLEARANCE IN PREDICTING GLOMERULAR FILTRATION RATE. ESTIMATED GFR IS NOT APPLICABLE FOR DIALYSIS PATIENTS. [id number] 02:34:00 Test Item Value Reference Range Comments PHOSPHORUS (BEAKER) (test rcuh=680) 4.7 mg/dL 2.3-4.7 [id number] 02:34:00 Test Item Value Reference Range Comments MAGNESIUM (BEAKER) (test eqdk=826) 2.0 mg/dL 1.6-2.6 IRON, TIBC, % SAT. (WITHOUT FERRITIN)2018-08-03 02:34:00 Test Item Value Reference Range Comments IRON (BEAKER) (test wvmb=816) 27.0 ug/dL 40.0-160.0 TOTAL IRON BINDING CAPACITY (BEAKER) (test 221 ug/dL 250-450 ntof=290) IRON % SATURATION (2) (BEAKER) (test wcoj=2619) 12 % 20-55 CALCIUM, [id number] 02:26:00 Test Item Value Reference Range Comments CALCIUM IONIZED (BEAKER) (test jsaw=687) 1.12 mmol/L 1.12-1.27 PH, BLOOD (BEAKER) (test rbzg=6893) 7.27 CBC W/PLT COUNT & AUTO [id number] 02:20:00 Test Item Value Reference Range Comments WHITE BLOOD CELL COUNT (BEAKER) (test fwkk=844) 12.5 K/ L 3.5-10.5 RED BLOOD CELL COUNT (BEAKER) (test fmle=065) 3.39 M/ L 3.93-5.22 HEMOGLOBIN (BEAKER) (test qrah=258) 10.4 GM/DL 11.2-15.7 HEMATOCRIT (BEAKER) (test emwu=764) 32.5 % 34.1-44.9 MEAN CORPUSCULAR VOLUME (BEAKER) (test twch=924) 95.9 fL 79.4-94.8 MEAN CORPUSCULAR HEMOGLOBIN (BEAKER) (test 30.7 pg 25.6-32.2 wjvm=765) MEAN CORPUSCULAR HEMOGLOBIN CONC (BEAKER) (test 32.0 GM/DL 32.2-35.5 vaeh=843) RED CELL DISTRIBUTION WIDTH (BEAKER) (test 13.6 % 11.7-14.4 szij=134) PLATELET COUNT (BEAKER) (test xdiv=504) 155 K/CU MM 150-450 MEAN PLATELET VOLUME (BEAKER) (test ubuf=907) 10.4 fL 9.4-12.3 NUCLEATED RED BLOOD CELLS (BEAKER) (test 0 /100 WBC 0-0 cuvx=696) NEUTROPHILS RELATIVE PERCENT (BEAKER) (test 83 % gubx=037) LYMPHOCYTES RELATIVE PERCENT (BEAKER) (test 8 % axse=808) MONOCYTES RELATIVE PERCENT (BEAKER) (test 9 % wgvv=218) EOSINOPHILS RELATIVE PERCENT (BEAKER) (test 0 % oafy=873) BASOPHILS RELATIVE PERCENT (BEAKER) (test 0 % gbrl=597) NEUTROPHILS ABSOLUTE COUNT (BEAKER) (test 10.32 K/ L 1.56-6.13 uzzz=397) LYMPHOCYTES ABSOLUTE COUNT (BEAKER) (test 1.01 K/ L 1.18-3.74 iave=988) MONOCYTES ABSOLUTE COUNT (BEAKER) (test 1.07 K/ L 0.24-0.36 fskl=567) EOSINOPHILS ABSOLUTE COUNT (BEAKER) (test 0.01 K/ L 0.04-0.36 glcb=880) BASOPHILS ABSOLUTE COUNT (BEAKER) (test 0.03 K/ L 0.01-0.08 yxkc=633) IMMATURE GRANULOCYTES-RELATIVE PERCENT (BEAKER) 1 % 0-1 (test ydkt=5274) RETICULOCYTE [id number] 02:16:00 Test Item Value Reference Range Comments RETICULOCYTE COUNT PCT ([facility]) (test heze=366) 2.7 % 0.5-1.7 POCT-GLUCOSE [id number] 01:12:00 Test Item Value Reference Range Comments POC-GLUCOSE METER (AKER) 239 mg/dL 70-110 TESTED AT [address] (test jezv=3093) [place] [id number] POCT-GLUCOSE [id number] 20:38:00 Test Item Value Reference Range Comments POC-GLUCOSE METER (BEAKER) 207 mg/dL 70-110 TESTED AT [address] (test adye=8359) [place] [id number] POCT-GLUCOSE [id number] 16:39:00 Test Item Value Reference Range Comments POC-GLUCOSE METER (AKER) 216 mg/dL 70-110 TESTED AT [address] (test lkck=7447) [place] [address] [id number] 12:20:00 Test Item Value Reference Range Comments PARTIAL THROMBOPLASTIN TIME (AKER) (test 36.6 seconds 22.5-36.0 kyxp=175) 4 hours after the start of continuous infusion and 4 hours after any rate changePOCT-GLUCOSE [id number] 12:03:00 Test Item Value Reference Range Comments POC-GLUCOSE METER (BEAKER) 206 mg/dL 70-110 TESTED AT [address] (test mfit=5828) [place] [address] POCT-GLUCOSE [id number] 12:03:00 Test Item Value Reference Range Comments POC-GLUCOSE METER (BEAKER) 193 mg/dL 70-[address] [facility] [address] [facility] (test xezl=2150) [facility] [address] POCT-GLUCOSE [id number] 12:02:00 Test Item Value Reference Range Comments POC-GLUCOSE METER (BEAKER) 234 mg/dL 70-[address] [facility] [address] [facility] (test fdby=4329) [facility] [address] POCT-GLUCOSE [id number] 12:02:00 Test Item Value Reference Range Comments POC-GLUCOSE METER (BEAKER) 211 mg/dL 70-110 TESTED AT [place] [id number] [facility] (test wsxx=8370) [facility] [address] U/S, RENAL, [id number] 08:45:00Reason for exam:->CKDFINAL REPORT TECHNIQUE: Grayscale ultrasound [...] Verified Date/Time: 08/02/2018 08: 45:50 Reading Location: [address] Radiology Reading Room Electronically signedby: ROB NAVARRO MD on 08/02/2018 08:45 AMPOCT-GLUCOSE [id number] 08:25:00 Test Item Value Reference Range Comments POC-GLUCOSE METER (BEAKER) 237 mg/dL 70-110 TESTED AT [address] (test cniy=8375) [facility] [address] [id number] 08:19:00 Test Item Value Reference Range Comments PARTIAL THROMBOPLASTIN TIME (BEAKER) (test 38.2 seconds 22.5-36.0 dotz=310) 4 hours after the start of continuous infusion and 4 hours after any rate changePOCT-GLUCOSE [id number] 07:14:00 Test Item Value Reference Range Comments POC-GLUCOSE METER (BEAKER) 246 mg/dL 70-110 TESTED AT [address] (test zosg=2452) [facility] [address] COMPREHENSIVE METABOLIC [id number] 04:58:00 Test Item Value Reference Range Comments TOTAL PROTEIN (BEAKER) 5.5 gm/dL 6.0-8.3 Specimen slightly (test hawi=098) hemolyzed ALBUMIN (BEAKER) (test 3.1 g/dL 3.5-5.0 Specimen slightly jhru=8838) hemolyzed ALKALINE PHOSPHATASE 54 U/L 40-150 (BEAKER) (test uozq=682) BILIRUBIN TOTAL (BEAKER) 0.7 mg/dL 0.2-1.2 Specimen slightly (test ykli=342) hemolyzed SODIUM (BEAKER) (test 135 meq/L 136-145 snhy=411) POTASSIUM (BEAKER) (test 4.8 meq/L 3.5-5.1 Specimen slightly rxsq=067) hemolyzed CHLORIDE (BEAKER) (test 108 meq/L 98-107 tnxr=644) CO2 (BEAKER) (test 18 meq/L 22-29 iwoo=676) BLOOD UREA NITROGEN 57 mg/dL 7-21 (BEAKER) (test xxdj=168) CREATININE (BEAKER) (test 2.27 mg/dL 0.57-1.25 Specimen slightly rwmx=142) hemolyzed GLUCOSE RANDOM (BEAKER) 289 mg/dL 70-105 (test zbpn=075) CALCIUM (BEAKER) (test 8.6 mg/dL 8.4-10.2 qssd=110) AST (SGOT) (BEAKER) (test 94 U/L 5-34 Specimen slightly ghmq=405) hemolyzed ALT (SGPT) (BEAKER) (test 20 U/L 6-55 Specimen slightly jlwg=714) hemolyzed EGFR (BEAKER) (test 21 mL/min/1.73 sq m ESTIMATED GFR IS NOT dijb=3423) ACCURATE CREATININE CLEARANCE IN PREDICTING GLOMERULAR FILTRATION RATE. ESTIMATED GFR IS NOT APPLICABLE FOR DIALYSIS PATIENTS. [id number] 04:52:00 Test Item Value Reference Range Comments PARTIAL THROMBOPLASTIN TIME (BEAKER) (test 37.5 seconds 22.5-36.0 lbny=242) 4 hours after the start of continuous infusion and 4 hours after any rate changeRAD, CHEST, 1 VIEW, NON [id number] 04:44:00Reason for exam:-> impella positionShould this be [...] NATRIURETIC PEPTIDE (BEAKER) (test 1452 pg/mL 0-100 makg=708) [id number] 04:40:00 Test Item Value Reference Range Comments MAGNESIUM (BEAKER) (test 2.0 mg/dL 1.6-2.6 Specimen slightly hemolyzed cuub=241) [id number] 04:40:00 Test Item Value Reference Range Comments PHOSPHORUS (BEAKER) (test 4.7 mg/dL 2.3-4.7 Specimen slightly hemolyzed sfai=435) URIC [id number] 04:40:00 Test Item Value Reference Range Comments URIC ACID (BEAKER) (test 9.1 mg/dL 2.6-7.2 Specimen slightly hemolyzed fvop=287) LACTIC ACID, [id number] 04:31:00 Test Item Value Reference Range Comments LACTATE BLOOD ARTERIAL (2) 0.9 mmol/L 0.5-2.2 Specimen slightly hemolyzed (BEAKER) (test htwa=1858) BLOOD GAS, [id number] 04:25:00 Test Item Value Reference Range Comments PH ARTERIAL (BEAKER) (test lmwr=479) 7.31 7.35-7.45 PCO2 ARTERIAL (BEAKER) (test apye=388) 40 mmHg 35-45 PO2 ARTERIAL (BEAKER) (test wdgp=888) 90 mmHg 80-90 O2 SATURATION ARTERIAL (BEAKER) (test xceg=993) 96.3 % 96.0-97.0 HCO3 ARTERIAL (BEAKER) (test mpkj=821) 20 mmol/L 21-29 BASE EXCESS ARTERIAL (BEAKER) (test hhhq=399) -6.1 mmol/L -2.0-3.0 PATIENT TEMPERATURE (BEAKER) (test azfo=8145) 36.7 C FIO2 (BEAKER) (test wmos=8648) 36.0 % GLUCOSE-STAT [id number] 04:25:00 Test Item Value Reference Range Comments GLUCOSE RANDOM (BEAKER) (test ibai=031) 272 mg/dL 70-110 HGB/HCT (H&H) - STAT [id number] 04:25:00 Test Item Value Reference Range Comments HEMOGLOBIN (BEAKER) (test zekj=878) 10.9 g/dL 12.0-15.0 HEMATOCRIT (BEAKER) (test vprs=533) 32.0 % 36.0-45.0 CBC W/PLT COUNT & AUTO [id number] 04:24:00 Test Item Value Reference Range Comments WHITE BLOOD CELL COUNT (BEAKER) (test glap=123) 14.8 K/ L 3.5-10.5 RED BLOOD CELL COUNT (BEAKER) (test avnx=044) 3.43 M/ L 3.93-5.22 HEMOGLOBIN (BEAKER) (test qzsi=199) 10.3 GM/DL 11.2-15.7 HEMATOCRIT (BEAKER) (test ypfw=906) 32.3 % 34.1-44.9 MEAN CORPUSCULAR VOLUME (BEAKER) (test ejcu=272) 94.2 fL 79.4-94.8 MEAN CORPUSCULAR HEMOGLOBIN (BEAKER) (test 30.0 pg 25.6-32.2 sgzu=085) MEAN CORPUSCULAR HEMOGLOBIN CONC (BEAKER) (test 31.9 GM/DL 32.2-35.5 uurb=628) RED CELL DISTRIBUTION WIDTH (BEAKER) (test 13.2 % 11.7-14.4 znos=024) PLATELET COUNT (BEAKER) (test mjzy=692) 171 K/CU MM 150-450 MEAN PLATELET VOLUME (BEAKER) (test lezr=827) 10.1 fL 9.4-12.3 NUCLEATED RED BLOOD CELLS (BEAKER) (test 0 /100 WBC 0-0 knqo=290) NEUTROPHILS RELATIVE PERCENT (BEAKER) (test 84 % aeuq=513) LYMPHOCYTES RELATIVE PERCENT (BEAKER) (test 9 % dluj=476) MONOCYTES RELATIVE PERCENT (BEAKER) (test 7 % chwj=020) EOSINOPHILS RELATIVE PERCENT (BEAKER) (test 0 % sfxu=695) BASOPHILS RELATIVE PERCENT (BEAKER) (test 0 % ggzw=316) NEUTROPHILS ABSOLUTE COUNT (BEAKER) (test 12.38 K/ L 1.56-6.13 gidg=179) LYMPHOCYTES ABSOLUTE COUNT (BEAKER) (test 1.30 K/ L 1.18-3.74 jjvs=043) MONOCYTES ABSOLUTE COUNT (BEAKER) (test 1.04 K/ L 0.24-0.36 okgr=553) EOSINOPHILS ABSOLUTE COUNT (BEAKER) (test 0.00 K/ L 0.04-0.36 lrzj=923) BASOPHILS ABSOLUTE COUNT (BEAKER) (test 0.02 K/ L 0.01-0.08 sxpf=454) IMMATURE GRANULOCYTES-RELATIVE PERCENT (BEAKER) 1 % 0-1 (test tese=0090) CALCIUM, [id number] 04:22:00 Test Item Value Reference Range Comments CALCIUM IONIZED (BEAKER) (test urfo=663) 1.20 mmol/L 1.12-1.27 PH, BLOOD (BEAKER) (test vgbp=3216) 7.31 SODIUM NA-STAT [id number] 04:21:00 Test Item Value Reference Range Comments SODIUM (BEAKER) (test iseq=790) 136 meq/L 135-148 POTASSIUM-STAT [id number] 04:21:00 Test Item Value Reference Range Comments POTASSIUM (BEAKER) (test szuz=518) 4.6 meq/L 3.6-5.5 LACTIC ACID, [id number] 00:13:00 Test Item Value Reference Range Comments LACTATE BLOOD ARTERIAL (2) (BEAKER) (test 0.7 mmol/L 0.5-2.2 ssnv=6518) SODIUM NA-STAT [id number] 23:59:00 Test Item Value Reference Range Comments SODIUM (BEAKER) (test awcg=418) 136 meq/L 135-148 POTASSIUM-STAT [id number] 23:59:00 Test Item Value Reference Range Comments POTASSIUM (BEAKER) (test etrb=370) 4.8 meq/L 3.6-5.5 BLOOD GAS, [id number] 23:59:00 Test Item Value Reference Range Comments PH ARTERIAL (BEAKER) (test mqqm=874) 7.31 7.35-7.45 PCO2 ARTERIAL (BEAKER) (test dwpk=184) 42 mmHg 35-45 PO2 ARTERIAL (BEAKER) (test bdez=720) 78 mmHg 80-90 O2 SATURATION ARTERIAL (BEAKER) (test pyvp=478) 94.7 % 96.0-97.0 HCO3 ARTERIAL (BEAKER) (test zbft=187) 21 mmol/L 21-29 BASE EXCESS ARTERIAL (BEAKER) (test hqvb=464) -5.2 mmol/L -2.0-3.0 PATIENT TEMPERATURE (BEAKER) (test eqtw=0481) 36.7 C FIO2 (BEAKER) (test evux=1195) 36.0 % GLUCOSE-STAT [id number] 23:59:00 Test Item Value Reference Range Comments GLUCOSE RANDOM (BEAKER) (test ayzc=417) 275 mg/dL 70-110 HGB/HCT (H&H) - STAT [id number] 23:59:00 Test Item Value Reference Range Comments HEMOGLOBIN (BEAKER) (test kwmr=010) 11.3 g/dL 12.0-15.0 HEMATOCRIT (BEAKER) (test gtyr=548) 33.0 % 36.0-45.0 [id number] 21:53:00 Test Item Value Reference Range Comments PARTIAL THROMBOPLASTIN TIME (BEAKER) (test 63.4 seconds 22.5-36.0 xquj=820) 4 hours after the start of continuous infusion and 4 hours after any rate changeCOMPREHENSIVE METABOLIC [id number] 19:43:00 Test Item Value Reference Range Comments TOTAL PROTEIN (BEAKER) 5.8 gm/dL 6.0-8.3 Specimen slightly (test dbyq=279) hemolyzed ALBUMIN (BEAKER) (test 3.3 g/dL 3.5-5.0 Specimen slightly fsjj=8157) hemolyzed ALKALINE PHOSPHATASE 57 U/L 40-150 (BEAKER) (test dlbo=683) BILIRUBIN TOTAL (BEAKER) 0.9 mg/dL 0.2-1.2 Specimen slightly (test tgwa=212) hemolyzed SODIUM (BEAKER) (test 137 meq/L 136-145 ccvd=318) POTASSIUM (BEAKER) (test 4.8 meq/L 3.5-5.1 Specimen slightly emsy=155) hemolyzed CHLORIDE (BEAKER) (test 109 meq/L 98-107 obqf=674) CO2 (BEAKER) (test 20 meq/L 22-29 qkzs=279) BLOOD UREA NITROGEN 56 mg/dL 7-21 (BEAKER) (test rcos=476) CREATININE (BEAKER) (test 2.26 mg/dL 0.57-1.25 Specimen slightly degr=760) hemolyzed GLUCOSE RANDOM (BEAKER) 235 mg/dL 70-105 (test wkyv=270) CALCIUM (BEAKER) (test 9.2 mg/dL 8.4-10.2 qhcv=141) AST (SGOT) (BEAKER) (test 27 U/L 5-34 Specimen slightly hrfx=006) hemolyzed ALT (SGPT) (BEAKER) (test 13 U/L 6-55 Specimen slightly zifj=470) hemolyzed EGFR (BEAKER) (test 21 mL/min/1.73 sq m ESTIMATED GFR IS NOT arrh=6428) ACCURATE CREATININE CLEARANCE IN PREDICTING GLOMERULAR FILTRATION RATE. ESTIMATED GFR IS NOT APPLICABLE FOR DIALYSIS PATIENTS. Call k > 5, [id number] 19:41:00 Test Item Value Reference Range Comments SODIUM (BEAKER) (test pxdh=256) 137 meq/L 136-145 POTASSIUM (BEAKER) (test 4.8 meq/L 3.5-5.1 Specimen slightly hemolyzed fnxw=901) CHLORIDE (BEAKER) (test 109 meq/L 98-107 htoo=235) CO2 (BEAKER) (test xkcy=849) 20 meq/L - Call k > 5, [id number] 19:37:00 Test Item Value Reference Range Comments PROTIME (BEAKER) (test oavx=706) 33.9 seconds 11.9-14.2 INR (BEAKER) (test qhkd=279) 3.6 <=5.9 PARTIAL THROMBOPLASTIN TIME (BEAKER) (test 85.5 seconds 22.5-36.0 yqnh=001) Effective 07/18/2018: PT Reference Range ChangeNew: 11.9-14.2 Previous: 11.7- 14.7RECOMMENDED COUMADIN/WARFARIN INR THERAPY RANGESSTANDARD DOSE: 2.0-3.0 Includes: PROPHYLAXIS for venous thrombosis, systemic embolization; TREATMENT for venous thrombosis and/or pulmonary embolus.HIGH RISK: Target INR is2.5-3.5 for patients wiht mechanical heart valves.[id number] 19:36:00 Test Item Value Reference Range Comments FIBRINOGEN LEVEL (BEAKER) (test lavj=570) 336 mg/dl 225-434 LACTIC ACID, [id number] 19:34:00 Test Item Value Reference Range Comments LACTATE BLOOD ARTERIAL (2) 1.3 mmol/L 0.5-2.2 Specimen slightly hemolyzed (BEAKER) (test ptbn=4612) CBC (HEMOGRAM ONLY)[id number] 19:23:00 Test Item Value Reference Range Comments WHITE BLOOD CELL COUNT (BEAKER) (test kmqq=847) 14.1 K/ L 3.5-10.5 RED BLOOD CELL COUNT (BEAKER) (test rhyl=215) 3.68 M/ L 3.93-5.22 HEMOGLOBIN (BEAKER) (test nvkb=708) 11.3 GM/DL 11.2-15.7 HEMATOCRIT (BEAKER) (test ctex=970) 34.6 % 34.1-44.9 MEAN CORPUSCULAR VOLUME (BEAKER) (test xizt=539) 94.0 fL 79.4-94.8 MEAN CORPUSCULAR HEMOGLOBIN (BEAKER) (test 30.7 pg 25.6-32.2 arpa=898) MEAN CORPUSCULAR HEMOGLOBIN CONC (BEAKER) (test 32.7 GM/DL 32.2-35.5 skhv=379) RED CELL DISTRIBUTION WIDTH (BEAKER) (test 13.1 % 11.7-14.4 jcum=166) PLATELET COUNT (BEAKER) (test hrcf=449) 207 K/CU MM 150-450 MEAN PLATELET VOLUME (BEAKER) (test bopw=128) 9.9 fL 9.4-12.3 NUCLEATED RED BLOOD CELLS (BEAKER) (test 0 /100 WBC 0-0 kjwx=791) BLOOD GAS, [id number] 19:16:00 Test Item Value Reference Range Comments PH ARTERIAL (BEAKER) (test dbax=851) 7.35 7.35-7.45 PCO2 ARTERIAL (BEAKER) (test lkxm=556) 39 mmHg 35-45 PO2 ARTERIAL (BEAKER) (test pybv=752) 50 mmHg 80-90 O2 SATURATION ARTERIAL (BEAKER) (test wuud=130) 84.5 % 96.0-97.0 HCO3 ARTERIAL (BEAKER) (test osmy=385) 21 mmol/L 21-29 BASE EXCESS ARTERIAL (BEAKER) (test sdug=089) -4.5 mmol/L -2.0-3.0 PATIENT TEMPERATURE (BEAKER) (test fugl=4669) 36.7 C FIO2 (BEAKER) (test qiqv=4348) 36.0 % GLUCOSE-STAT [id number] 19:16:00 Test Item Value Reference Range Comments GLUCOSE RANDOM (BEAKER) (test ntwf=753) 231 mg/dL 70-110 HGB/HCT (H&H) - STAT [id number] 19:16:00 Test Item Value Reference Range Comments HEMOGLOBIN (BEAKER) (test qfli=514) 11.5 g/dL 12.0-15.0 HEMATOCRIT (BEAKER) (test wsxi=504) 34.0 % 36.0-45.0 CALCIUM, [id number] 19:15:00 Test Item Value Reference Range Comments CALCIUM IONIZED (BEAKER) (test odcr=843) 1.26 mmol/L 1.12-1.27 PH, BLOOD (BEAKER) (test uucb=7186) 7.35 OXYGEN SATURATION, [id number] 19:14:00 Test Item Value Reference Range Comments O2 SATURATION (MEASURED) (BEAKER) (test lwth=0790) 41.9 % SODIUM NA-STAT [id number] 19:14:00 Test Item Value Reference Range Comments SODIUM (BEAKER) (test ceme=456) 138 meq/L 135-148 POTASSIUM-STAT [id number] 19:14:00 Test Item Value Reference Range Comments POTASSIUM (BEAKER) (test mvrc=514) 4.7 meq/L 3.6-5.5 [id number] 16:45:00 Test Item Value Reference Range Comments ACTIVATED CLOTTING TIME 389 sec TESTED AT [address] (BEAKER) (test tagk=255) [facility] [address] HEMOGLOBIN AND [id number] 16:38:00 Test Item Value Reference Range Comments HEMOGLOBIN (BEAKER) (test mizl=357) 10.1 GM/DL 11.2-15.7 HEMATOCRIT (BEAKER) (test gnyz=665) 31.6 % 34.1-44.9 PLATELET AGGREGATION: FUNCTION [id number] 16:05:00 Test Item Value Reference Range Comments WEAK ADP RESULT(BEAKER) (test 34 % 60-91 hecg=4670) PLATELET FUNCTION SCREEN 0-39% indicates marked platelet INTERP (BEAKER) (test dysfunction ffnd=2187) [id number] Talia Villarreal MD (BEAKER) (test iuec=2150) (electronic signature) PLATELET COUNT AGG (BEAKER) 186 K/CU MM 150-450 (test lgxa=9109) Platelet Function Screen results may be falsely low with platelet counts<100, 000/cu mm.[id number] 15:02:00 Test Item Value Reference Range Comments ACTIVATED CLOTTING TIME [address] [facility] [address] [facility] ([facility]AK[facility] (test bxht=942) [facility] [address] POCT-GLUCOSE [id number] 12:17:00 Test Item Value Reference Range Comments POC-GLUCOSE METER (BEAKER) 103 mg/dL 70-110 TESTED AT [address] (test nqfn=9353) [place] [address] POCT-GLUCOSE [id number] 08:18:00 Test Item Value Reference Range Comments POC-GLUCOSE METER (BEAKER) 388 mg/dL 70-110 TESTED AT [address] (test hdsp=6102) [place] [address] HEPATIC FUNCTION [id number] 08:09:00 Test Item Value Reference Range Comments TOTAL PROTEIN (BEAKER) (test 6.2 gm/dL 6.0-8.3 Specimen slightly hemolyzed svfi=302) ALBUMIN (BEAKER) (test 3.4 g/dL 3.5-5.0 Specimen slightly hemolyzed ddzh=5627) BILIRUBIN TOTAL (BEAKER) (test 0.4 mg/dL 0.2-1.2 Specimen slightly hemolyzed dbcb=488) BILIRUBIN DIRECT (BEAKER) (test 0.1 mg/dL 0.1-0.5 Specimen slightly hemolyzed punq=343) ALKALINE PHOSPHATASE (BEAKER) 59 U/L 40-150 (test jvex=374) AST (SGOT) (BEAKER) (test 19 U/L 5-34 Specimen slightly hemolyzed iugh=696) ALT (SGPT) (BEAKER) (test 10 U/L 6-55 Specimen slightly hemolyzed qwmd=653) TROPONIN [id number] 06:39:00 Test Item Value Reference Range Comments TROPONIN I (BEAKER) (test ytgq=898) 0.26 ng/mL 0.00-0.03 Troponin I (TnI) levels [...] acidosis, acute neurological disease, and persistent tachyarrhythmia.POCT-GLUCOSE [id number] 06:36:00 Test Item Value Reference Range Comments POC-GLUCOSE METER (BEAKER) 415 mg/dL 70-110 TESTED AT [address] (test vsno=8997) [place] [address] BASIC METABOLIC [id number] 06:10:00 Test Item Value Reference Range Comments SODIUM (BEAKER) (test 135 meq/L 136-145 tjqe=134) POTASSIUM (BEAKER) (test 4.9 meq/L 3.5-5.1 Specimen slightly byzz=972) hemolyzed CHLORIDE (BEAKER) (test 104 meq/L 98-107 duoj=108) CO2 (BEAKER) (test 21 meq/L 22-29 vwdh=916) BLOOD UREA NITROGEN 53 mg/dL 7-21 (BEAKER) (test slfg=513) CREATININE (BEAKER) (test 2.28 mg/dL 0.57-1.25 Specimen slightly xjwf=185) hemolyzed GLUCOSE RANDOM (BEAKER) 473 mg/dL 70-105 (test lrvy=948) CALCIUM (BEAKER) (test 8.7 mg/dL 8.4-10.2 qwsy=928) EGFR (BEAKER) (test 21 mL/min/1.73 sq m ESTIMATED GFR IS NOT hvjh=1222) ACCURATE CREATININE CLEARANCE IN PREDICTING GLOMERULAR FILTRATION RATE. ESTIMATED GFR IS NOT APPLICABLE FOR DIALYSIS PATIENTS. [id number] 06:03:00 Test Item Value Reference Range Comments MAGNESIUM (BEAKER) (test 2.2 mg/dL 1.6-2.6 Specimen slightly hemolyzed vcfd=967) THROMBIN [id number] 05:09:00 Test Item Value Reference Range Comments THROMBIN TIME (BEAKER) (test egzx=212) 64.9 secs 13.8-20.0 Draw baseline aPTT prior to [id number] 05:08:00 Test Item Value Reference Range Comments PARTIAL THROMBOPLASTIN TIME (BEAKER) (test 43.1 seconds 22.5-36.0 idsy=702) Draw baseline aPTT prior to infusionPROTHROMBIN TIME/[id number] 05:07:00 Test Item Value Reference Range Comments PROTIME (BEAKER) (test cfzi=094) 15.0 seconds 11.9-14.2 INR (BEAKER) (test fmuj=256) 1.2 <=5.9 Effective 07/18/2018: PT Reference Range ChangeNew: 11.9-14.2 Previous: 11.7- 14.7RECOMMENDED COUMADIN/WARFARIN INR THERAPY RANGESSTANDARD DOSE: 2.0-3.0 Includes: PROPHYLAXIS for venous thrombosis, systemic embolization; TREATMENT for venous thrombosis and/or pulmonary embolus.HIGH RISK: Target INR is2.5-3.5 for patients wiht mechanical heart valves.Draw baseline aPTT prior to infusionCBC W/PLT COUNT & AUTO [id number] 04:59:00 Test Item Value Reference Range Comments WHITE BLOOD CELL COUNT (BEAKER) (test ydgg=663) 7.0 K/ L 3.5-10.5 RED BLOOD CELL COUNT (BEAKER) (test ljxf=666) 3.82 M/ L 3.93-5.22 HEMOGLOBIN (BEAKER) (test oscy=892) 11.7 GM/DL 11.2-15.7 HEMATOCRIT (BEAKER) (test mhzq=288) 35.9 % 34.1-44.9 MEAN CORPUSCULAR VOLUME (BEAKER) (test xcpw=407) 94.0 fL 79.4-94.8 MEAN CORPUSCULAR HEMOGLOBIN (BEAKER) (test 30.6 pg 25.6-32.2 iglo=653) MEAN CORPUSCULAR HEMOGLOBIN CONC (BEAKER) (test 32.6 GM/DL 32.2-35.5 rbvh=621) RED CELL DISTRIBUTION WIDTH (BEAKER) (test 12.8 % 11.7-14.4 wcxt=639) PLATELET COUNT (BEAKER) (test trfl=660) 225 K/CU MM 150-450 MEAN PLATELET VOLUME (BEAKER) (test sofl=044) 10.5 fL 9.4-12.3 NUCLEATED RED BLOOD CELLS (BEAKER) (test 0 /100 WBC 0-0 ikjs=114) NEUTROPHILS RELATIVE PERCENT (BEAKER) (test 87 % rkiu=621) LYMPHOCYTES RELATIVE PERCENT (BEAKER) (test 10 % cijo=532) MONOCYTES RELATIVE PERCENT (BEAKER) (test 2 % pzkp=730) EOSINOPHILS RELATIVE PERCENT (BEAKER) (test 0 % qxpn=468) BASOPHILS RELATIVE PERCENT (BEAKER) (test 0 % afsn=952) NEUTROPHILS ABSOLUTE COUNT (BEAKER) (test 6.10 K/ L 1.56-6.13 ucee=466) LYMPHOCYTES ABSOLUTE COUNT (BEAKER) (test 0.72 K/ L 1.18-3.74 dtct=497) MONOCYTES ABSOLUTE COUNT (BEAKER) (test 0.14 K/ L 0.24-0.36 edjl=444) EOSINOPHILS ABSOLUTE COUNT (BEAKER) (test 0.00 K/ L 0.04-0.36 nimj=182) BASOPHILS ABSOLUTE COUNT (BEAKER) (test 0.01 K/ L 0.01-0.08 tfal=106) IMMATURE GRANULOCYTES-RELATIVE PERCENT (BEAKER) 1 % 0-1 (test dghg=7945) RAD, CHEST, 1 VIEW, NON [id number] 04:33:00Reason for exam:->preopShould this be performed at the bedside?->YesFINAL REPORT RAD, CHEST, 1 VIEW, NON DEPT INDICATION: preop COMPARISON: Prior day's exam FINDINGS: Portable frontal view of the chest. IMPRESSION: Support Lines: Stable. Lungs and pleura: Unchanged airspace and pleural opacities. No pneumothorax.Heart and mediastinum: Stable contours. Additional findings: None. Signed: Desire Méndez Verified Date/Time: 08/01/2018 04:33:15 RAD , CHEST, 1 VIEW, NON [id number] 00:02:00Reason for exam:->Intraaortic balloon pump insertionShould this [...] MÉNDEZ MD on08/01/2018 12:02 AMTSH/FREE T4 IF [id number] 21:34:00 Test Item Value Reference Range Comments THYROID STIMULATING HORMONE (BEAKER) (test 0.99 uIU/mL 0.35-4.94 nydu=973) TROPONIN [id number] 21:26:00 Test Item Value Reference Range Comments TROPONIN I (BEAKER) (test jtoi=017) 0.28 ng/mL 0.00-0.03 Troponin I (TnI) levels [...] NATRIURETIC PEPTIDE (BEAKER) (test 633 pg/mL 0-100 drde=719) RAD, CHEST, 1 VIEW, NON [id number] 21:20:00Reason for exam:->unstable anginaShould this be performed at the bedside?->YesFINAL REPORT Portable chest. HISTORY: Unstable angina. COMPARISON STUDY: Noneavailable. FINDINGS: The cardiac size is enlarged. There are bilateral increased interstitial markings with some atelectasis or fibrosis in the lung bases. No pleural effusion or pneumothorax is seen. Degenerative changes and osteopenia are seen. IMPRESSION: Cardiomegaly with increased interstitial markings. Signed: [facility] Verified Date/Time: 07/31/2018 21:20 :52 Reading Location: [place] [id number] Consult Reading Room [facility] METABOLIC [id number] 21:18:00 Test Item Value Reference Range Comments SODIUM (BEAKER) (test 137 meq/L 136-145 bpen=436) POTASSIUM (BEAKER) (test 4.6 meq/L 3.5-5.1 gdls=924) CHLORIDE (BEAKER) (test 104 meq/L 98-107 yegh=854) CO2 (BEAKER) (test 25 meq/L - mtni=038) BLOOD UREA NITROGEN 47 mg/dL 7-21 (BEAKER) (test lozu=255) CREATININE (BEAKER) (test 2.18 mg/dL 0.57-1.25 vdhe=611) GLUCOSE RANDOM (BEAKER) 223 mg/dL 70-105 (test ahza=676) CALCIUM (BEAKER) (test 9.1 mg/dL 8.4-10.2 syek=781) EGFR (BEAKER) (test 22 mL/min/1.73 sq m ESTIMATED GFR IS NOT mzic=2785) ACCURATE CREATININE CLEARANCE IN PREDICTING GLOMERULAR FILTRATION RATE. ESTIMATED GFR IS NOT APPLICABLE FOR DIALYSIS PATIENTS. HEPATIC FUNCTION [id number] 21:15:00 Test Item Value Reference Range Comments TOTAL PROTEIN (BEAKER) (test obyd=450) 6.8 gm/dL 6.0-8.3 ALBUMIN (BEAKER) (test baoy=8661) 3.8 g/dL 3.5-5.0 BILIRUBIN TOTAL (BEAKER) (test ycik=460) 0.6 mg/dL 0.2-1.2 BILIRUBIN DIRECT (BEAKER) (test hucc=699) 0.3 mg/dL 0.1-0.5 ALKALINE PHOSPHATASE (BEAKER) (test uwzz=455) 67 U/L 40-150 AST (SGOT) (BEAKER) (test rrsz=859) 14 U/L 5-34 ALT (SGPT) (BEAKER) (test kftg=091) 10 U/L 6-55 [id number] 20:57:00 Test Item Value Reference Range Comments PARTIAL THROMBOPLASTIN TIME (BEAKER) (test 27.7 seconds 22.5-36.0 ompj=769) PROTHROMBIN TIME/[id number] 20:56:00 Test Item Value Reference Range Comments PROTIME (BEAKER) (test zyjw=798) 13.1 seconds 11.9-14.2 INR (BEAKER) (test ylmo=112) 1.0 <=5.9 Effective 07/18/2018: PT Reference Range ChangeNew: 11.9-14.2 Previous: 11.7- 14.7RECOMMENDED COUMADIN/WARFARIN INR THERAPY RANGESSTANDARD DOSE: 2.0-3.0 Includes: PROPHYLAXIS for venous thrombosis, systemic embolization; TREATMENT for venous thrombosis and/or pulmonary embolus.HIGH RISK: Target INR is2.5-3.5 for patients wiht mechanical heart valves.CBC W/PLT COUNT & AUTO [id number] 20:50:00 Test Item Value Reference Range Comments WHITE BLOOD CELL COUNT (BEAKER) (test qqqo=634) 8.4 K/ L 3.5-10.5 RED BLOOD CELL COUNT (BEAKER) (test xgai=658) 4.23 M/ L 3.93-5.22 HEMOGLOBIN (BEAKER) (test xyzn=449) 13.0 GM/DL 11.2-15.7 HEMATOCRIT (BEAKER) (test qnec=987) 41.2 % 34.1-44.9 MEAN CORPUSCULAR VOLUME (BEAKER) (test vbqq=057) 97.4 fL 79.4-94.8 MEAN CORPUSCULAR HEMOGLOBIN (BEAKER) (test 30.7 pg 25.6-32.2 twuh=832) MEAN CORPUSCULAR HEMOGLOBIN CONC (BEAKER) (test 31.6 GM/DL 32.2-35.5 dogi=733) RED CELL DISTRIBUTION WIDTH (BEAKER) (test 12.8 % 11.7-14.4 zubi=179) PLATELET COUNT (BEAKER) (test vqtw=739) 230 K/CU MM 150-450 MEAN PLATELET VOLUME (BEAKER) (test ljbi=517) 9.9 fL 9.4-12.3 NUCLEATED RED BLOOD CELLS (BEAKER) (test 0 /100 WBC 0-0 zbif=049) NEUTROPHILS RELATIVE PERCENT (BEAKER) (test 87 % qjxy=501) LYMPHOCYTES RELATIVE PERCENT (BEAKER) (test 12 % zqjd=426) MONOCYTES RELATIVE PERCENT (BEAKER) (test 1 % bpqq=913) EOSINOPHILS RELATIVE PERCENT (BEAKER) (test 0 % cfhf=575) BASOPHILS RELATIVE PERCENT (BEAKER) (test 0 % udjd=043) NEUTROPHILS ABSOLUTE COUNT (BEAKER) (test 7.32 K/ L 1.56-6.13 ktcy=232) LYMPHOCYTES ABSOLUTE COUNT (BEAKER) (test 0.98 K/ L 1.18-3.74 duxi=136) MONOCYTES ABSOLUTE COUNT (BEAKER) (test 0.08 K/ L 0.24-0.36 szse=306) EOSINOPHILS ABSOLUTE COUNT (BEAKER) (test 0.00 K/ L 0.04-0.36 vpja=387) BASOPHILS ABSOLUTE COUNT (BEAKER) (test 0.01 K/ L 0.01-0.08 rdaw=127) IMMATURE GRANULOCYTES-RELATIVE PERCENT (BEAKER) 0 % 0-1 (test uwbf=6156) [id number] 19:45:00 Test Item Value Reference Range Comments TROPONIN-I (test 0.18 ng/mL 0.00-0.05 RESULTS CALLED TO SOLITARIO SCHUMACHER code=TROPI) AT 1945 07/28/18.Ligia MalloyCRIGUS L VALUE READ BACK BY NURSE AND VERIFIED BY TECH? Y<0.05 Normal0.06 - 0.39 Consistent with circulating Troponin with possible Myocardial injury.>0.40 Consistent with Myocardial injury extensive enough to conform with AMI as defined by WHO. COMPREHENSIVE METABOLIC [id number] 16:08:00 Test Item Value Reference Range Comments [...] 45-117 (test code=ALKP) - XR CHEST 1 [id number] 15:43:00 FAX: Rhett Jo [phone] Camps: ER St: REG Name: HENRIQUE ARECHIGA [facility]- Emergency Services : 1940 Age/S: 78/F [address] Unit #: [id number] Loc: [place], [place] [address] Phys: Rhett Sams MD Acct: [id number] Dis Date: Status: REG ER PHONE #: [phone] Exam Date: 07/28/2018 1527 FAX #: [phone] Reason: CP EXAMS: CPT CODE: [id number] XR CHEST 1 V 82976 Examination: Chest 1 view Location code: S17 [...] HESHAM FONG, RT,(R) ARRT Transcribed Date/Time/By: 07/28/2018 (4847) : [email or web address] Orig Print D/T: S: 07/28/2018 (9965) Automated exposure control, iterative reconstruction technique, and/ oradjustment of mA and/or kV according to patient's size was utilizedfor optimum radiation dose reduction. PAGE 1 Signed ReportTROPONIN I [id number] 15:37:00 Test Item Value Reference Range Comments TROPONIN I RAPID (test 0.03 NG/ML 0.00-0.08 0.00 - 0.08 Normal0.09 - code=TROPIRAP) 0.40 Indeterminate for AMI 0.41 and above Compatible with AMI CHEMISTRY 8 [id number] 15:36:00 Test Item Value Reference Range Comments [...] (test code=CREATBED) 2.6 MG/DL 0.6-1.0 CBC W/AUTO [id number] 15:34:00 Test Item Value Reference Range Comments [...]
--- OUTSIDE RECORDS SUMMARY | 2018-09-20 22:05 | XMS REPORT ---
[...] stent Z95.5 Active placement Assessment Atherosclerosis of [place] coronary I25.10 Active artery Assessment At risk for falling Z91.81 Active Problem Proteinuria, unspecified R80.9 Active Assessment Mixed hyperlipidemia E78.2 Active Problem H/O stroke without residual deficits Z86.73 Active Assessment Proteinuria, unspecified R80.9 Active Problem Chronic kidney disease (CKD), stage N18.4 Active IV (severe) Problem At risk for falling Z91.81 Active Problem Other osteoporosis M81.8 Active Problem snf current 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 Z79.4 Active Problem Type 2 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 Assessment snf current 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 Z79.4 Active Assessment Hypertensive heart disease without I11.9 Active heart failure Problem Cervical stenosis of spine M48.02 Active Assessment 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 classified I43 Active elsewhere Problem 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 classified I43 Active elsewhere Problem Atherosclerosis of [place] coronary I25.10 Active artery Problem Hypertensive heart [...] End Status Dosage System Date Date Metoprolol [facility] 31597822211 100 MG Orally Active 1 tablet Succinate ER Twice a day Tradjenta [facility] 16513905567 5 MG Orally Active 1 tablet Once a day Simvastatin [facility] 84087257931 40 MG Orally Active 1/2 tablet Once a day in the evening Furosemide [facility] 17419713199 40 MG Orally Active 1 tablet Once a day Clopidogrel [facility] 24055750190 75 MG Orally Active 1 tablet Bisulfate Once a day Tresiba FlexTouch [facility] 90365137082 200 UNIT/ML Active 10 units Subcutaneous daily Cranberry Extract [facility] 47260-24929 Active not defined Lactobacillus [facility] 0 Active not defined Norvasc [facility] 25750427327 10 MG Orally Active 1 tablet Once a day Results No Known Results Summary Purpose eClinicalWorks Submission
--- OUTSIDE RECORDS SUMMARY | 2018-09-20 22:06 | XMS REPORT ---
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 Active Problem Atherosclerosis of [place] coronary I25.10 Active artery Problem Chronic kidney disease (CKD), stage N18.4 Active IV (severe) Problem H/O stroke without residual Z86.73 Active deficits Medications Medication Code Code Instructions Start End Status Dosage System Date Date Simvastatin [facility] 38984082559 40 MG Orally Active 1/2 tablet Once a day in the evening Tradjenta [facility] 67346924748 5 MG Orally Active 1 tablet Once a day Metoprolol [facility] 13513129122 100 MG Orally Active 1 tablet Succinate ER Twice a day Cranberry Extract [facility] [address] Active not defined Tresiba FlexTouch [facility] 75132839635 200 UNIT/ML Active 10 units Subcutaneous daily Norvasc [facility] 99802227989 10 MG Orally Active 1 tablet Once a day Clopidogrel [facility] 84810883978 75 MG Orally Active 1 tablet Bisulfate Once a day Furosemide [facility] 91239547410 40 MG Orally Active 1 tablet Once a day Lactobacillus [facility] 0 Active not defined Results Name Result Date Reference Range Unit Abnormality Flag X-RAY EXAM KNEE STANDING VIEW (68118) Summary Purpose eClinicalWorks Submission
--- OUTSIDE RECORDS SUMMARY | 2018-09-20 22:06 | XMS REPORT ---
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
--- OUTSIDE RECORDS SUMMARY | 2018-09-20 22:06 | XMS REPORT ---
:1940 Author Organization eClinicalWorks Care Team Providers Name Role Phone Orlando John Provider Role Unavailable Allergies No Known Allergies Problems Problem Type Condition Code Onset Dates Condition Status Problem longterm current 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 Z79.4 [...] stent Z95.5 Active placement Problem Atherosclerosis of [place] coronary I25.10 Active artery Problem Chronic kidney disease (CKD), stage N18.4 Active IV (severe) Problem 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 Active classified elsewhere Medications No Known Medications Results No Known Results Summary Purpose eClinicalWorks Submission
--- OUTSIDE RECORDS SUMMARY | 2018-09-20 22:06 | XMS REPORT ---
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 Problem [...] stent Z95.5 Active placement Problem Atherosclerosis of [place] coronary I25.10 Active artery Problem Chronic kidney disease (CKD), stage N18.4 Active IV (severe) Problem 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 Active classified elsewhere Medications Medication Code Code Instructions Start End Status Dosage System Date Date Lactobacillus NDC 0 Active not defined Furosemide ND 55859822271 40 MG Orally Active 1 tablet Once a day Bactrim DS ND 53667204774 800-160 MG Feb 21Feb Active 1 tablet Orally Twice a 2019 2018 Simvastatin ND 75346636587 40 MG Orally Active 1/2 tablet [place] [address] Active not defined Extract Norvasc [facility] 48067720467 10 MG Orally Active 1 tablet Once a day Tresiba [facility] 88187530395 200 UNIT/ML Active INJECT 10 UNITS FlexTouch SUBCUTANEOUSLY DAILY Tradjenta [facility] 62332032624 5 MG Orally Active 1 tablet Once a day Clopidogrel [facility] 71652076814 75 MG Orally Active 1 tablet Bisulfate Once a day Metoprolol [facility] 82345052006 100 MG Orally Active 1 tablet Succinate ER Twice a day Results No Known Results Summary Purpose eClinicalWorks Submission
--- OUTSIDE RECORDS SUMMARY | 2018-09-20 22:06 | XMS REPORT ---
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 [...] of [place] coronary I25.10 Active artery Medications Medication Code Code Instructions Start End Status Dosage System Date Date Metoprolol ND 59769217206 100 MG Orally Active 1 tablet Succinate ER Twice a day Simvastatin ND 23966310142 40 MG Orally Active 1/2 tablet in Once a day the evening Lactobacillus NDC 0 Active not defined Furosemide ND 12495666593 40 MG Orally Active 1 tablet Once a day Norvasc [facility] 31631130283 10 MG Orally Active 1 tablet Once a day Tresiba [facility] 65078906704 200 UNIT/ML Active INJECT 10 UNITS FlexTouch SUBCUTANEOUSLY DAILY Tradjenta [facility] 92815070528 5 MG Orally Active 1 tablet Once a day Cranberry [facility] [address] Active not defined Extract Clopidogrel [facility] 17348701130 75 MG Orally Active 1 tablet Bisulfate Once a day Results No Known Results Summary Purpose eClinicalWorks Submission
--- OUTSIDE RECORDS SUMMARY | 2018-09-20 22:06 | XMS REPORT ---
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 Active Problem Atherosclerosis of [place] coronary I25.10 Active artery Assessment Chronic kidney disease, stage 4 N18.4 Active (severe) Problem 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 Active classified elsewhere Assessment Medicare annual wellness visit, Z00.00 Active subsequent Problem half-way current 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 Z79.4 [...] Start End Status Dosage System Date Date [facility] 10 MG Orally Active 1 tablet Once a day Metoprolol [facility]NOTE 3] 97062988095 100 MG Orally Active 1 tablet Succinate ER Twice a day Tradjenta [facility]NOTE 3] 05259617617 5 MG Orally Active 1 tablet Once a day Simvastatin [facility]NOTE 3] 12860896967 40 MG Orally Active 1/2 tablet in Once a day the evening Furosemide [facility]NOTE 3] 85753558400 40 MG Orally Active 1 tablet Once a day Simvastatin [facility]NOTE 3] 20196005902 40 MG Orally Active 1/2 tablet in Once a day the evening Clopidogrel [facility]NOTE 3] 11910526028 75 MG Orally Active 1 tablet Bisulfate Once a day Cranberry [facility]NOTE 3] [address] Active not defined Extract Lactobacillus [facility]NOTE 3] 0 Active not defined Tradjenta [facility]NOTE 3] 26292083229 5 MG Orally Active 1 tablet Once a day Tresiba [facility]NOTE 3] 21174981004 200 UNIT/ML Active INJECT 10 UNITS FlexTouch SUBCUTANEOUSLY DAILY Tresiba [facility]NOTE 3] 02589817689 200 UNIT/ML Active 10 units FlexTouch Subcutaneous daily Results No Known Results Summary Purpose eClinicalWorks Submission
--- OUTSIDE RECORDS SUMMARY | 2018-09-20 22:06 | XMS REPORT ---
:1940 Author Organization eClinicalWorks Care Team Providers Name Role Phone Orlando John Provider Role Unavailable Allergies No Known Allergies Problems Problem Type Condition Code Onset Dates Condition Status Problem 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 Active classified elsewhere Problem Cervical stenosis of spine M48.02 Active Problem residential current 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 Z79.4 [...] stent Z95.5 Active placement Problem Atherosclerosis of [place] coronary I25.10 Active artery Medications No Known Medications Results No Known Results Summary Purpose eClinicalWorks Submission
--- OUTSIDE RECORDS SUMMARY | 2018-09-20 22:06 | XMS REPORT ---
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
--- OUTSIDE RECORDS SUMMARY | 2018-09-20 22:06 | XMS REPORT ---
:1940 Author Organization eClinicalWorks Care Team Providers Name Role Phone Orlando John Provider Role Unavailable Allergies No Known Allergies Problems Problem Type Condition Code Onset Dates Condition Status Problem 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 Active classified elsewhere Problem Cervical stenosis of spine M48.02 Active Problem alf current 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 Z79.4 [...] stent Z95.5 Active placement Problem Atherosclerosis of [place] coronary I25.10 Active artery Medications No Known Medications Results No Known Results Summary Purpose eClinicalWorks Submission
--- OUTSIDE RECORDS SUMMARY | 2018-09-20 22:06 | XMS REPORT ---
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 [...] stent Z95.5 Active placement Problem Atherosclerosis of [place] coronary I25.10 Active artery Medications Medication Code Code Instructions Start End Status Dosage System Date Date Furosemide [facility] 61668939947 40 MG Orally Active 1 tablet Once a day Tradjenta [facility] 58909699841 5 MG Orally Active 1 tablet Once a day Simvastatin ND 00257439285 40 MG Orally Active 1/2 tablet in Once a day the evening Metoprolol [facility] 66744678798 100 MG Orally Active 1 tablet Succinate ER Twice a day Norvasc [facility] 00998084760 10 MG Orally Active 1 tablet Once a day Cranberry [facility] [address] Active not defined Extract Tresiba [facility] 19780685902 200 UNIT/ML Active INJECT 10 UNITS FlexTouch SUBCUTANEOUSLY DAILY Lactobacillus [facility] 0 Active not defined Clopidogrel [facility] 75633858050 75 MG Orally Active 1 tablet Bisulfate Once a day Results No Known Results Summary Purpose eClinicalWorks Submission
--- OUTSIDE RECORDS SUMMARY | 2018-09-20 22:06 | XMS REPORT ---
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
--- OUTSIDE RECORDS SUMMARY | 2018-09-20 22:07 | XMS REPORT ---
:1940 Author Organization eClinicalWorks Care Team Providers Name Role Phone Orlando John Provider Role Unavailable Allergies No Known Allergies Problems Problem Type Condition Code Onset Dates Condition Status Problem senior living current 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 Z79.4 Active Problem [...] stent Z95.5 Active placement Problem Atherosclerosis of [place] coronary I25.10 Active artery Problem Chronic kidney disease (CKD), stage N18.4 Active IV (severe) Problem 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 Active classified elsewhere Medications No Known Medications Results No Known Results Summary Purpose eClinicalWorks Submission
--- OUTSIDE RECORDS SUMMARY | 2018-09-20 22:07 | XMS REPORT ---
[...] Mixed hyperlipidemia E78.2 Active Assessment Atherosclerosis of [place] coronary I25.10 Active artery Assessment History of coronary artery stent Z95.5 Active placement Assessment Proteinuria, unspecified R80.9 Active Assessment 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 Active classified elsewhere Problem Atherosclerosis of [place] coronary I25.10 Active artery Assessment Hypertensive heart disease without I11.9 Active heart failure Problem 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 Active classified elsewhere Assessment Chronic kidney disease, stage 4 N18.4 Active (severe) Problem residential current 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 Z79.4 [...] osteoarthritis of right M17.11 Active knee Assessment 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 Active Problem [...] End Status Dosage System Date Date Clopidogrel [facility] 49183655262 75 MG Orally Active 1 tablet Bisulfate Once a day Simvastatin [facility] 50235562914 40 MG Orally Active 1/2 tablet in Once a day the evening Nitrostat [facility] 40387440719 0.4 MG Active as directed Sublingual 3 doses within 15 minutes PRN CHEST PAIN Calcitriol [facility] 30852356366 0.5 MCG Oct Active 1 capsule Orally Once a , 2018 Simvastatin [facility] 55302985875 40 MG Orally Inactive 1/2 tablet in Once a day the evening Furosemide [facility] 75463578820 40 MG Orally Inactive 1 tablet Once a day Folic Acid [facility] 97458981700 1 MG Orally Active 1 tablet Once a day Senna S [facility] 79942790197 8.6-50 MG Active 1 tablet in the Orally Once a evening as day needed Cranberry [facility] [address] Active not defined Extract Tresiba [facility] 95031455256 200 UNIT/ML Active INJECT 10 UNITS FlexTouch SUBCUTANEOUSLY DAILY Cyanocobalamin [facility] [address]-66 1000 MCG Active 1 tablet Orally Once a day Metoprolol [facility] 87790325693 25 MG Orally Active 1 tablet with Tartrate Twice a day food Tradjenta [facility] 47775606283 5 MG Orally Active 1 tablet Once a day Thiamine HCl [facility] 55365501634 100 MG Orally Active 1 tablet Once a day Amiodarone HCl [facility] 29363762501 200 MG Orally Active 1 tablet Once a day Lipitor [facility] 84308728196 80 MG Orally Active 1 tablet Once a day Aspir-Low [facility] 84613529683 81 MG Orally Active 1 tablet Once a day Tradjenta [facility] 67073965566 5 MG Orally Active 1 tablet Once a day Tresiba [facility] 83410393639 200 UNIT/ML Active 10 units FlexTouch Subcutaneous daily Vitamin D-3 [facility] 69532960617 5000 UNIT Active as directed Orally Metoprolol [facility] 90944882015 100 MG Orally Inactive 1 tablet Succinate ER Twice a day Lactobacillus NDC 0 Active not defined Norvasc [facility] 63972954356 10 MG Orally Inactive 1 tablet Once a day Bumex [facility] 34183562153 0.5 MG Orally Active as directed Results No Known Results Summary Purpose eClinicalWorks Submission
--- OUTSIDE RECORDS SUMMARY | 2018-09-20 22:07 | XMS REPORT ---
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 Z79.4 [...] stent Z95.5 Active placement Problem Atherosclerosis of [place] coronary I25.10 Active artery Assessment Dysuria R30.0 Active Problem Chronic kidney disease (CKD), stage N18.4 Active IV (severe) Problem 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 Active classified elsewhere Medications Medication Code Code Instructions Start End Status Dosage System Date Date Tresiba [facility] 36738630456 200 UNIT/ML Active 10 units FlexTouch Subcutaneous daily Tradjenta [facility] 72754964878 5 MG Orally Active 1 tablet Once a day Tradjenta [facility] 74119970190 5 MG Orally Active 1 tablet Once a day Metoprolol [facility] 26813329936 25 MG Orally Active 1 tablet with Tartrate Twice a day food Calcitriol ND 90040124474 0.5 MCG Orally Oct Active 1 capsule Once a day 2018 Nitrostat ND 84480127205 0.4 MG Active as directed Sublingual 3 doses within 15 minutes PRN CHEST PAIN Cyanocobalamin [facility] [address]-69 1000 MCG Active 1 tablet Orally Once a day Tresiba [facility] 02423626716 200 UNIT/ML Active INJECT 10 UNITS FlexTouch SUBCUTANEOUSLY DAILY Aspir-Low ND 08349277006 81 MG Orally Active 1 tablet Once a day Bumex [facility] 83276922453 0.5 MG Orally Active as directed Bactrim DS [facility] 53286349608 800-160 MG August Active 1 tablet Orally Twice a , , day 2018 2018 Clopidogrel [facility] 75767237766 75 MG Orally Active 1 tablet Bisulfate Once a day Vitamin D-3 [facility] 62859323343 5000 UNIT Active as directed Orally Senna S [facility] 99989913316 8.6-50 MG Active 1 tablet in the Orally Once a evening as day needed Cranberry [facility] [address] Active not defined Extract Lactobacillus ND 0 Active not defined Folic Acid [facility] 17445179010 1 MG Orally Active 1 tablet Once a day Pyridium [facility] 59325262900 200 MG Orally August Active 1 tablet after Three times a 18, 20, meals 2018 Lipitor ND 41834253237 80 MG Orally Active 1 tablet Once a day Amiodarone HCl ND 15786628093 200 MG Orally Active 1 tablet Once a day Thiamine HCl [facility] 61079643397 100 MG Orally Active 1 tablet Once a day Results No Known Results Summary Purpose eClinicalWorks Submission
--- OUTSIDE RECORDS SUMMARY | 2018-09-20 22:07 | XMS REPORT ---
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 Problem 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 Active classified elsewhere Assessment Chronic kidney disease, stage 4 N18.4 Active (severe) Problem [facility] current 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 Z79.4 [...] End Status Dosage System Date Date Tradjenta [facility] [id number] 5 MG Orally Active 1 tablet Once a day Furosemide [facility] 25303537900 40 MG Orally Active 1 tablet Once a day Norvasc [facility] 69097892044 10 MG Orally Active 1 tablet Once a day Metoprolol [facility] 60491129403 100 MG Orally Active 1 tablet Succinate ER Twice a day Tresiba [facility] 55401122545 200 UNIT/ML Active 10 units FlexTouch Subcutaneous daily Tresiba [facility] 97400215835 200 UNIT/ML Active INJECT 10 UNITS FlexTouch SUBCUTANEOUSLY DAILY Simvastatin [facility] 58329049024 40 MG Orally Active 1/2 tablet in Once a day the evening Simvastatin [facility] 50641764845 40 MG Orally Active 1/2 tablet in Once a day the evening Tradjenta [facility] 73580201400 5 MG Orally Active 1 tablet Once a day Clopidogrel [facility] 17687949159 75 MG Orally Active 1 tablet Bisulfate Once a day Lactobacillus NDC 0 Active not defined Cranberry [facility] [id number] Active not defined Extract Results No Known Results Summary Purpose eClinicalWorks Submission
--- OUTSIDE RECORDS SUMMARY | 2018-09-20 22:07 | XMS REPORT ---
:1940 Author Organization eClinicalWorks Care Team Providers Name Role Phone Orlando John Provider Role Unavailable Allergies No Known Allergies Problems Problem Type Condition Code Onset Dates Condition Status Problem half-way current 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 Z79.4 [...] stent Z95.5 Active placement Problem Atherosclerosis of crow coronary I25.10 Active artery Problem Chronic kidney disease (CKD), stage N18.4 Active IV (severe) Problem 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 Active classified elsewhere Medications No Known Medications Results No Known Results Summary Purpose eClinicalWorks Submission
[2018-09-20] MEDS ORDERED: ASPIRIN 81 MG CHEWABLE TABLET ONE (22:13)
[2018-09-20 22:40] LABS: Basophils % 0.7 % (0-1.3); Lymphocytes % 10.5 % (15.3-44.8); MPV 8.7 fL (7.6-11.3); Protime INR 1.03; RBC Red Blood Cell Count 4.03 M/uL (3.86-4.86)
[2018-09-20 22:55] LABS: Albumin 3.4 g/dL (3.4-5.0); Bilirubin Direct 0.1 mg/dL (0-0.2); Bilirubin Total 0.4 mg/dL (0.2-1.0); Potassium 4.7 mmol/L (3.5-5.1); Protein, Total 7.2 g/dL (6.4-8.2)
[2018-09-20 22:56] LABS: Magnesium 2.3 mg/dL (1.8-2.4); Troponin (Emerg Dept Use Only) 0.24 ng/mL (0.0-0.045)
[2018-09-20] MEDS ORDERED: ACETAMINOPHEN 500 MG TAB ONE (23:35)
[2018-09-21] MEDS ORDERED: ACETAMINOPHEN 500 MG TAB PO PRN (00:59)
[2018-09-21] MEDS ORDERED: ONDANSETRON 4 MG/2 ML VIAL IV PRN (00:59)
[2018-09-21] MEDS ORDERED: MAGNESIUM HYDROXIDE 8% 30 ML PO PRN (00:59)
[2018-09-21] MEDS ORDERED: NACHLORIDE 0.45% 1,000 ML IV SCH (01:00)
--- NOTE | 2018-09-21 01:01 | EDPHYS ---
Physician Documentation [facility] Name: Suzan Gonzalez Age: 78 yrs Sex: Female : 1940 Arrival Date: 09/20/2018 Time: 21:57 Bed 18 Private MD: ED Physician Talon Gann HPI: 09/21 02:33 This 78 yrs old Female presents to ER via EMS with complaints of Breathing wa Difficulty. 02:33 The patient has shortness of breath at rest. Onset: The symptoms/episode began/occurred wa just prior to arrival. Duration: The symptoms are continuous, and are steadily getting worse. The patient's shortness of breath is aggravated by exertion, is alleviated by nothing. Associated signs and symptoms: Pertinent negatives: chest pain, productive cough, dizziness, fever, hemoptysis, loss of consciousness, vomiting. Severity of symptoms: At their worst the symptoms were severe in the emergency department the symptoms are worse moderately. The patient has experienced similar episodes in the past, several times. The patient has been recently seen by a physician:. recently placed stents in heart. h/o CHF. sees Dr. Arteaga. states SOB tonight. sudden onset. per EMS, pt noted tachypneic with low sats. Historical: - Allergies: 09/20 22:05 "every pain narcotic"; tr5 22:05 Bactrim; tr5 22:05 Benadryl; tr5 22:05 Iodine; tr5 22:05 Levaquin; tr5 22:05 Morphine; tr5 - Home Meds: 22:05 Cozaar 25 mg Oral tab 1 tab once daily [Active]; hydrochlorothiazide 25 mg Oral tab 1 tr5 tab once daily [Active]; levemir 25 units in the morning [Active]; metoprolol tartrate 100 mg Oral tab 1 tab 2 times per day [Active]; Plavix 75 mg Oral tab 1 tab once daily [Active]; Lasix 20 mg Oral tab [Active]; - PMHx: 22:05 angio; CHF; Diabetes - IDDM; Hypertension; Osteoporosis; POOR CIRCULATION; Renal tr5 Disease; - PSHx: 22:05 Heart stents; tr5 - Immunization history:: Adult Immunizations Adult Immunizations up to date. - Social history:: Smoking status: Patient/guardian denies using tobacco, never smoked. - Ebola Screening: : No symptoms or risks identified at this time. - Family history:: not pertinent. - Hospitalizations: : No recent hospitalization is reported. ROS: 09/21 02:36 Constitutional: Negative for fever, chills, and weight loss, Eyes: Negative for injury, wa pain, redness, and discharge, ENT: Negative for injury, pain, and discharge, Neck: Negative for injury, pain, and swelling, Abdomen/GI: Negative for abdominal pain, nausea, vomiting, diarrhea, and constipation, Back: Negative for injury and pain, : Negative for injury, bleeding, discharge, and swelling, MS/Extremity: Negative for injury and deformity, Skin: Negative for injury, rash, and discoloration, Neuro: Negative for headache, weakness, numbness, tingling, and seizure. Cardiovascular: Positive for orthopnea, Negative for chest pain, edema, palpitations, paroxysmal nocturnal dyspnea. Respiratory: Positive for dyspnea on exertion, shortness of breath, on exertion. Negative for hemoptysis, sputum production. All other systems are negative. Exam: 02:37 Head/Face: Normocephalic, atraumatic. Eyes: Pupils equal round and reactive to light, wa extra-ocular motions intact. Lids and lashes normal. Conjunctiva and sclera are non-icteric and not injected. Cornea within normal limits. Periorbital areas with no swelling, redness, or edema. ENT: Nares patent. No nasal discharge, no septal abnormalities noted. Tympanic membranes are normal and external auditory canals are clear. Oropharynx with no redness, swelling, or masses, exudates, or evidence of obstruction, uvula midline. Mucous membranes moist. Neck: Trachea midline, no thyromegaly or masses palpated, and no cervical lymphadenopathy. Supple, full range of motion without nuchal rigidity, or vertebral point tenderness. No Meningismus. Chest/axilla: Normal chest wall appearance and motion. Nontender with no deformity. No lesions are appreciated. Abdomen/GI: Soft, non-tender, with normal bowel sounds. No distension or tympany. No guarding or rebound. No evidence of tenderness throughout. Back: No spinal tenderness. No costovertebral tenderness. Full range of motion. Skin: Warm, dry with normal turgor. Normal color with no rashes, no lesions, and no evidence of cellulitis. MS/ Extremity: Pulses equal, no cyanosis. Neurovascular intact. Full, normal range of motion. Neuro: Awake and alert, GCS 15, oriented to person, place, time, and situation. Cranial nerves II-XII grossly intact. Motor strength 5/5 in all extremities. Sensory grossly intact. Cerebellar exam normal. Normal gait. Psych: Awake, alert, with orientation to person, place and time. Behavior, mood, and affect are within normal limits. 02:37 Constitutional: The patient appears alert, in obvious distress, mildly distressed. 02:37 Cardiovascular: Rate: normal, Rhythm: regular, Pulses: no pulse deficits are appreciated, Heart sounds: normal, Edema: is not appreciated, JVD: is not appreciated. 02:37 Respiratory: mild respiratory distress is noted, Respirations: tachypnea, Breath sounds: crackles noted bilaterally, Respiratory rate: tachypneic Vital Signs: 09/20 22:05 BP 148 / 129; Pulse 93; Resp 19; Temp 98.2(O); Pulse Ox 90% on 6 lpm NC; Weight 76.2 tr5 kg; Height 5 ft. 1 in. (154.94 cm); 22:30 BP 137 / 98; Pulse 110; Resp 16; Pulse Ox 97% on 3 lpm NC; tr5 23:13 BP 137 / 60; Pulse 80; Resp 24; Pulse Ox 94% on 2 lpm NC; tr5 09/21 00:41 BP 120 / 63; Pulse 82; Resp 20; Pulse Ox 94% on 2 lpm NC; tr5 09/20 22:05 Body Mass Index 31.74 (76.20 kg, 154.94 cm) tr MDM: 09/20 21:58 Patient medically screened. ar 09/21 02:38 Differential diagnosis: CHF exacerbation, Myocardial Infarction pneumonia, pulmonary wa edema, Pulmonary Embolism Sepsis Unstable Angina. Data reviewed: vital signs, nurses notes, lab test result(s), EKG, radiologic studies. Test interpretation: by ED physician or midlevel provider: EKG interp by me: HR 93. sinus. low voltage. diffuse ST-T changes. Special discussion: noted in extremis from NOEL. clinically noted CHF. improved with nitro SL x 3 . lasix IV given prior to leaving ED for admit bed. improved with sats going up to 96% on 2 L. Dx: CHF exacerbation. 02:41 Test interpretation: by ED physician or midlevel provider: labs: renal insuff. elevated ar BNP consistent with CHF. CT chest: CHF. bilateral pulm effusions. 09/20 22:02 Order name: Blood Culture Adult (2) ar 09/20 22:02 Order name: BMP ar 09/20 22:02 Order name: CBC with Diff ar 09/20 22:02 Order name: CPK; Complete Time: 23:38 ar 09/20 22:02 Order name: Hepatic Function; Complete Time: 23:37 ar 09/20 22:02 Order name: Lipase; Complete Time: 23:38 ar 09/20 22:02 Order name: Magnesium; Complete Time: 23:38 ar 09/20 22:02 Order name: NT PRO-BNP; Complete Time: 23:37 ar 09/20 22:02 Order name: PT-INR ar 09/20 22:02 Order name: Troponin (emerg Dept Use Only); Complete Time: 23:37 ar 09/20 22:03 Order name: Blood Culture [facility] 09/20 22:03 Order name: Basic Metabolic Panel; Complete Time: 23:37 [facility] 09/20 22:03 Order name: CBC with Automated Diff; Complete Time: 23:38 [facility] 09/20 22:21 Order name: Urine Microscopic Only ar 09/20 22:22 Order name: CT Chest Wo Con ar 09/21 00:46 Order name: Urine Dipstick--Ancillary (enter results) [facility] 09/21 01:10 Order name: CBC with Automated Diff [facility] 09/21 01:10 Order name: Comprehensive Metabolic Panel [facility] 09/21 01:10 Order name: Lipid Profile [facility] 09/21 01:10 Order name: Magnesium [facility] 09/21 01:10 Order name: Phosphorus [facility] 09/21 01:10 Order name: T4 Free [facility] 09/21 01:10 Order name: Thyroid Stimulating Hormone [facility] 09/21 01:10 Order name: D-Dimer [facility] 09/21 01:10 Order name: D-Dimer [facility] 09/21 01:10 Order name: NT PRO-BNP [facility] 09/21 01:10 Order name: NT PRO-BNP [facility] 09/21 01:10 Order name: Troponin I [facility] 09/21 01:10 Order name: Troponin I [facility] 09/21 01:10 Order name: Troponin I [facility] 09/20 22:02 Order name: EKG; Complete Time: 22:03 ar 09/20 22:02 Order name: Cardiac monitoring; Complete Time: 22:13 ar 09/20 22:02 Order name: EKG - Nurse/Tech; Complete Time: 22:13 ar 09/20 22:02 Order name: IV Saline Lock; Complete Time: 22:32 ar 09/20 22:02 Order name: Labs collected and sent; Complete Time: 22:32 ar 09/20 22:02 Order name: O2 Per Protocol; Complete Time: 22:13 ar 09/20 22:02 Order name: O2 Sat Monitoring; Complete Time: 22:13 ar 09/20 22:21 Order name: Urine Dipstick-Ancillary (obtain specimen); Complete Time: 00:43 ar 09/20 23:37 Order name: Chest Single View XRAY ar 09/21 01:09 Order name: CONS Physician Consult [facility] 09/21 01:09 Order name: CONS Physician Consult [facility] 09/21 01:09 Order name: Heart Healthy [facility] 09/21 01:10 Order name: Echo with Doppler [facility] 09/21 01:10 Order name: Extrem Venous W Compress Leonel [facility] 09/21 01:10 Order name: Extrem Venous W Compress Leonel [facility] Administered Medications: 09/20 22:02 Drug: Nitroglycerin 0.4 mg Route: Sublingual; tr5 22:07 Drug: Nitroglycerin 0.4 mg Route: Sublingual; tr5 22:12 Drug: Nitroglycerin 0.4 mg Route: Sublingual; tr5 23:21 Follow up: Response: Marked relief of symptoms tr5 22:13 Drug: Aspirin Chewable Tablet 324 mg Route: PO; tr5 23:20 Follow up: Response: No adverse reaction tr5 23:38 Drug: Tylenol 1000 mg Route: PO; tr5 09/21 01:19 Drug: Lasix 40 mg Route: IVP; Site: left antecubital; tr5 01:41 Follow up: Response: No adverse reaction tr5 Disposition: 09/21/18 01:00 Hospitalization ordered by Larry Gracia for Inpatient Admission. Preliminary diagnosis are acute dyspnea, CHF exacerbation. - Bed requested for Telemetry/MedSurg (Inpatient). - Status is Inpatient Admission. tr5 - Condition is Fair. - Problem is new. - Symptoms have improved. UTI on Admission? No Signatures: Dispatcher [employer] EDMS Ligia Garcia RN RN Talon Gann MD MD wa Rodriguez, Tommie, RN RN tr5 Corrections: (The following items were deleted from the chart) 01:26 01:00 Hospitalization Ordered by Larry Gracia MD for Inpatient Admission. Preliminary diagnosis is acute dyspnea; CHF exacerbation. Bed requested for Telemetry/MedSurg (Inpatient). Status is Inpatient Admission. Condition is Fair. Problem is new. Symptoms have improved. UTI on Admission? No. wa 02:01 01:26 09/21/2018 01:00 Hospitalization Ordered by Larry Gracia MD for Inpatient tr5 Admission. Preliminary diagnosis is acute dyspnea; CHF exacerbation. Bed requested for Telemetry/MedSurg (Inpatient). Status is Inpatient Admission. Condition is Fair. Problem is new. Symptoms have improved. UTI on Admission? No.
--- NOTE | 2018-09-21 01:01 | ER ---
Nurse's Notes [facility] Name: Suzan Gonzalez Age: 78 yrs Sex: Female : 1940 Arrival Date: 09/20/2018 Time: 21:57 Bed 18 Private MD: Diagnosis: acute dyspnea;CHF exacerbation Presentation: 09/20 22:00 Presenting complaint: EMS states: Patient reports around 1800 she started experience tr5 SOB at rest and anxiety. She called her doctor and he advised her to increase her Lasix, but she was only able to urinate 1 time. Transition of care: patient was not received from another setting of care. Onset of symptoms was September 20, 2018. Risk Assessment: Do you want to hurt yourself or someone else? Patient reports no desire to harm self or others. Initial Sepsis Screen: Does the patient meet any 2 criteria? No. Patient's initial sepsis screen is negative. Does the patient have a suspected source of infection? No. Patient's initial sepsis screen is negative. Care prior to arrival: Oxygen administered. via nasal cannula. 22:00 Method Of Arrival: EMS: [facility] tr5 22:00 Acuity: SERGIO 2 tr5 Triage Assessment: 09/21 01:39 General: Appears in no apparent distress. uncomfortable. Respiratory: Onset: The tr5 symptoms/episode began/occurred the patient has moderate shortness of breath. Historical: - Allergies: 09/20 22:05 "every pain narcotic"; tr5 22:05 Bactrim; tr5 22:05 Benadryl; tr5 22:05 Iodine; tr5 22:05 Levaquin; tr5 22:05 Morphine; tr5 - Home Meds: 22:05 Cozaar 25 mg Oral tab 1 tab once daily [Active]; hydrochlorothiazide 25 mg Oral tab 1 tr5 tab once daily [Active]; levemir 25 units in the morning [Active]; metoprolol tartrate 100 mg Oral tab 1 tab 2 times per day [Active]; Plavix 75 mg Oral tab 1 tab once daily [Active]; Lasix 20 mg Oral tab [Active]; - PMHx: 22:05 angio; CHF; Diabetes - IDDM; Hypertension; Osteoporosis; POOR CIRCULATION; Renal tr5 Disease; - PSHx: 22:05 Heart stents; tr5 - Immunization history:: Adult Immunizations Adult Immunizations up to date. - Social history:: Smoking status: Patient/guardian denies using tobacco, never smoked. - Ebola Screening: : No symptoms or risks identified at this time. - Family history:: not pertinent. - Hospitalizations: : No recent hospitalization is reported. Screenin:06 Abuse screen: Denies threats or abuse. Nutritional screening: No deficits noted. tr5 Tuberculosis screening: No symptoms or risk factors identified. Fall Risk No fall in past 12 months (0 pts). No secondary diagnosis (0 pts). No IV (0 pts). Ambulatory Aid- None/Bed Rest/Nurse Assist (0 pts). Gait- Normal/Bed Rest/Wheelchair (0 pts) Mental Status- Oriented to own ability (0 pts). Total Murray Fall Scale indicates No Risk (0-24 pts). Assessment: 22:06 General: Appears uncomfortable, Behavior is calm, cooperative. Pain: Complains of pain tr5 in back Pain does not radiate. Quality of pain is described as aching. Neuro: Level of Consciousness is awake, alert, obeys commands, Oriented to person, place, time, Submarine Diver are equal bilaterally Moves all extremities. Gait is steady. Cardiovascular: Reports shortness of breath, Heart tones present Bruits absent Capillary refill < 3 seconds Rhythm is regular. Respiratory: Airway is patent Trachea midline Respiratory effort is labored, Respiratory pattern is symmetrical, hyperventilation Breath sounds with crackles bilaterally. GI: No signs and/or symptoms were reported involving the gastrointestinal system. : Reports inability to void, since symptoms started around 1800 today. EENT: No signs and/or symptoms were reported regarding the EENT system. Derm: No signs and/or symptoms reported regarding the dermatologic system. Musculoskeletal: Capillary refill < 3 seconds, Range of motion: intact in all extremities. 23:12 Reassessment: Patient appears in no apparent distress at this time. Patient and/or tr5 family updated on plan of care and expected duration. Pain level reassessed. Patient is alert, oriented x 3, equal unlabored respirations, skin warm/dry/pink. 09/21 00:41 Reassessment: Patient and/or family updated on plan of care and expected duration. Pain tr5 level reassessed. Patient is alert, oriented x 3, equal unlabored respirations, skin warm/dry/pink. Patient states feeling better. Vital Signs: 09/20 22:05 BP 148 / 129; Pulse 93; Resp 19; Temp 98.2(O); Pulse Ox 90% on 6 lpm NC; Weight 76.2 tr5 kg; Height 5 ft. 1 in. (154.94 cm); 22:30 BP 137 / 98; Pulse 110; Resp 16; Pulse Ox 97% on 3 lpm NC; tr5 23:13 BP 137 / 60; Pulse 80; Resp 24; Pulse Ox 94% on 2 lpm NC; tr5 09/21 00:41 BP 120 / 63; Pulse 82; Resp 20; Pulse Ox 94% on 2 lpm NC; tr5 09/20 22:05 Body Mass Index 31.74 (76.20 kg, 154.94 cm) tr5 ED Course: 09/20 21:57 Patient arrived in ED. ds1 21:58 Talon Gann MD is Attending Physician. wa 21:59 Hugh Minor, SOLITARIO is Primary Nurse. tr5 22:03 Triage completed. tr5 22:05 Arm band placed on. tr5 22:06 Patient has correct armband on for positive identification. Placed in gown. Bed in low tr5 position. Call light in reach. Door closed. Noise minimized. Head of bed elevated. 22:10 secured entrance monitor on. Pulse ox on. NIBP on. tr5 22:31 Inserted saline lock: 20 gauge in left antecubital area, using aseptic technique. Blood oe collected. 22:[address] via stretcher. tr5 22:59 CT completed. Patient tolerated procedure well. Patient moved back from [place]. ky 23:57 X-ray completed. Portable x-ray completed in exam room. Patient tolerated procedure kw well. 23:57 Chest Single View XRAY In Process Unspecified. EDMS 08 00:19 CT Chest Wo Con In Process Unspecified. EDMS 00:45 Assisted with bedpan. tr5 00:59 Larry Gracia MD is Hospitalizing Provider. wa 01:00 Awaiting bed assignment. tr5 01:00 transfer transportation to receiving facility. tr5 01:35 No provider procedures requiring assistance completed. Patient admitted, IV remains in tr5 place. Administered Medications: 09/20 22:02 Drug: Nitroglycerin 0.4 mg Route: Sublingual; tr5 22:07 Drug: Nitroglycerin 0.4 mg Route: Sublingual; tr5 22:12 Drug: Nitroglycerin 0.4 mg Route: Sublingual; tr5 23:21 Follow up: Response: Marked relief of symptoms tr5 22:13 Drug: Aspirin Chewable Tablet 324 mg Route: PO; tr5 23:20 Follow up: Response: No adverse reaction tr5 23:38 Drug: Tylenol 1000 mg Route: PO; tr5 08 01:19 Drug: Lasix 40 mg Route: IVP; Site: left antecubital; tr5 01:41 Follow up: Response: No adverse reaction tr5 Outcome: 01:00 Decision to Hospitalize by Provider. katie 01:00 Admitted to Med/surg tr5 01:00 Admitted to Med/surg accompanied by eleanor, via wheelchair, with chart, Report called to Cira Bledsoe RN 01:38 Condition: stable tr5 01:38 Instructed on the need for admit. 02:01 Patient left the ED. tr5 Signatures: Dispatcher [employer] EDOH Joy Langley Kimberlee kw Jordan, Nathan nj Espinosa, Orlando oe Appiah, William, MD MD wa Rodriguez, Tommie, RN RN tr5 Corrections: (The following items were deleted from the chart) 09/20 22:12 22:05 Nitroglycerin 0.4 mg Sublingual tr5 tr5 22:42 22:05 BP 148 / 129; Pulse 93bpm; Resp 19bpm; Pulse Ox 90% 6 lpm Nasal Cannula; 76.2 kg; tr5 Height 5 ft. 1 in.; BMI: 31.7; tr5
[2018-09-21 01:07] LABS: Urine Blood 1+ (NEG); Urine Glucose 1+ (NEG); Urine Protein 2+ (NEG); Urine Specific Gravity 1.015 (1.005-1.030); Urine pH 5.5 (5.0-7.0)
[2018-09-21] MEDS ORDERED: FUROSEMIDE 40 MG/4 ML VIAL ONE (01:08)
[2018-09-21 01:24] LABS: Urine Bacteria <20 /HPF (<20); Urine Culture Reflex Order NOT NEEDED; Urine RBC <5 /HPF (NONE SEEN)
[2018-09-21 03:47] VITALS: BMI 31.7
[2018-09-21 06:30] LABS: Absolute Lymphocytes (CBC) 1.3 K/uL (0.7-4.9); Basophils % 0.7 % (0-1.3); Hematocrit 34.9 % (36.0-45.0); Lymphocytes % 19.1 % (15.3-44.8); MPV 8.8 fL (7.6-11.3); RBC Red Blood Cell Count 3.73 M/uL (3.86-4.86)
[2018-09-21 06:50] LABS: Albumin 3.1 g/dL (3.4-5.0); Bilirubin Total 0.5 mg/dL (0.2-1.0); Magnesium 2.3 mg/dL (1.8-2.4); Phosphorus 4.3 mg/dL (2.5-4.9); Potassium 4.6 mmol/L (3.5-5.1); Protein, Total 6.5 g/dL (6.4-8.2)
[2018-09-21 07:18] LABS: Thyroid Stimulating Hormone 1.13 uIU/mL (0.360-3.740); Troponin I 0.28 ng/mL (0.0-0.045)
--- NOTE | 2018-09-21 08:19 | RAD REPORT ---
EXAM DESCRIPTION: Axel Single View09/20/2018 11:57 pm CLINICAL HISTORY: Shortness of breath COMPARISON: September 20, 2018 FINDINGS: Moderate left and small to moderate right pleural effusions with bibasilar atelectasis Left and [id number] right pulmonary opacities. Heart is enlarged IMPRESSION: CHF
--- NOTE | 2018-09-21 08:52 | CON ---
Ms. Gonzalez is 78 years old. She was admitted on 09/21/[address] Gracia's service for congestive he art failure. Ms. Gonzalez was just discharged on the 17 of September for the same thing. She was here for approximately 2 weeks in cardiac rehab following angioplasty and stent at [facility] bec ause of severe coronary artery disease. Prior to that she was at [facility] for about 2 weeks becaus e of CHF and CAD. The patient was initially sent for surgery, but she was not a candidate because of allergy to heparin. She is a [employer] and refused any blood products and it was decided to do intervention with stents rather than bypass. Initially, she had an ejection fraction of __. On her last admission echocardiogram showed an ejection fraction of sudden episode of shortness of breath after dinner. Her chest x-ray however was clear. She denied any chest pain, na usea, vomiting, diaphoresis, PND, orthopnea, pedal edema, palpitations, or syncope. Her troponin is 0.4 which is chronic. Glucose was her. She is already feeling better this morning. Allergies: IODINE, MORPHINE, SULFA, AND BENADRYL. Review of Systems: Negative. Social History: Negative. Family History: Noncontributory. Medications: At home, include amiodarone, insulin, metoprolol 25 b.i.d., Lipitor, Bumex, Plavix, and aspirin. Past Medical History: Includes CAD, status post stents, chronic renal insufficiency, congestive hear t failure, diabetes, hypertension, dyslipidemia, and obesity. Physical Examination: General: She was pleasant as usual. She was feeling better. Vital Signs: Stable. She was in a sinus rhythm. HEENT: Negative. Neck: Supple with no bruit. Chest: Clear. Cardiac: Exam revealed a regular rhythm and rate. No murmurs, gallops, or rubs. Abdomen: Benign. Extremities: Revealed no clubbing, cyanosis, or edema. Skin: Her skin was dry and intact. Neurologic: She was nonfocal. Pulses were present distally bilaterally. Impression And Plan: 1.Acute exacerbation of chronic systolic congestive heart failure. 2.Coronary artery disease status post stent. 3.Chronic venous insufficiency. 4.Diabetes. 5.Hypertension. 6.Dyslipidemia. I am concerned that Ms. Gonzalez's recurrent admission to the hospital not only was secondary to CHF, but that may be worsened by the amiodarone. According to her last ejection fraction, I think I woul d feel safe to get her off the amiodarone, maybe changing the metoprolol to carvedilol, which may be better for renal function and the pulmonary status. Dr. Emanuel ordered an echocardiogram on her to gabriel gill sure we are not missing any worsening of the EF. I will discuss the case further with Dr. Gracia. I am hoping she can go home today. ALEJANDRO/LIO Voice ID: [id number] Report ID: [id number]
[2018-09-21] MEDS ORDERED: ENOXAPARIN 30 MG/0.3 ML SQ SCH (09:00)
[2018-09-21] MEDS ORDERED: METOPROLOL TAR 50 MG TAB PO SCH (09:00)
--- NOTE | 2018-09-21 10:13 | CON ---
Ms. Gonzalez is 78 years old. She was admitted on 09/21/[address] Gracia's service for congestive he art failure. Ms. Gonzalez was just discharged on the 17 of September for the same thing. She was here for approximately 2 weeks in cardiac rehab following angioplasty and stent at [facility] bec ause of severe coronary artery disease. Prior to that she was at [facility] for about 2 weeks becaus e of CHF and CAD. The patient was initially sent for surgery, but she was not a candidate because of allergy to heparin. 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 Initially, she had an ejection fraction of __. On her last admission echocardiogram showed an ejection fraction of sudden episode of shortness of breath after dinner. Her chest x-ray however was clear. She denied any chest pain, na usea, vomiting, diaphoresis, PND, orthopnea, pedal edema, palpitations, or syncope. Her troponin is 0.4 which is chronic. Glucose was her. She is already feeling better this morning. Allergies: IODINE, MORPHINE, SULFA, AND BENADRYL. Review of Systems: Negative. Social History: Negative. Family History: Noncontributory. Medications: At home, include amiodarone, insulin, metoprolol 25 b.i.d., Lipitor, Bumex, Plavix, and aspirin. Past Medical History: Includes CAD, status post stents, chronic renal insufficiency, congestive hear t failure, diabetes, hypertension, dyslipidemia, and obesity. Physical Examination: General: She was pleasant as usual. She was feeling better. Vital Signs: Stable. She was in a sinus rhythm. HEENT: Negative. Neck: Supple with no bruit. Chest: Clear. Cardiac: Exam revealed a regular rhythm and rate. No murmurs, gallops, or rubs. Abdomen: Benign. Extremities: Revealed no clubbing, cyanosis, or edema. Skin: Her skin was dry and intact. Neurologic: She was nonfocal. Pulses were present distally bilaterally. Impression And Plan: 1.Acute exacerbation of chronic systolic congestive heart failure. 2.Coronary artery disease status post stent. 3.Chronic renal insufficiency. 4.Diabetes. 5.Hypertension. 6.Dyslipidemia. I am concerned that Ms. Gonzalez's recurrent admission to the hospital not only was secondary to CHF, but that may be worsened by the amiodarone. According to her last ejection fraction, I think I woul d feel safe to get her off the amiodarone, maybe changing the metoprolol to carvedilol, which may be better for renal function and the pulmonary status. Dr. Emanuel ordered an echocardiogram on her to gabriel gill sure we are not missing any worsening of the EF. I will discuss the case further with Dr. Gracia. I am hoping she can go home today. ALEJANDRO/LIO Voice ID: [id number] Report ID: [id number]
[2018-09-21] MEDS ORDERED: D50W 25 GM/50 ML SYRINGE IV PRN (10:53)
[2018-09-21] MEDS ORDERED: GLUCAGON 1 MG/VIAL IM PRN (10:53)
--- NOTE | 2018-09-21 11:18 | P.HP ---
Certification for Inpatient Patient admitted to: Observation With expected LOS: <2 Midnights Patient will require the following post-hospital care: None Practitioner: I am a practitioner with admitting privileges, knowledge of patient current condition, hospital course, and medical plan of care. Services: Services provided to patient in accordance with Admission requirements found in Title 42 Section 412.3 of the Code of Federal Regulations Patient History Date of Service: 09/21/18 Reason for admission: DYSPNEA History of Present Illness: Patient is a 78-year-old female came to the hospital with difficulty breathing. Patient is had similar issues over the last month. She recently had stents placed and at that time her ejection fraction was 35%. She came back into the hospital couple weeks later with shortness of breath. This time on admission she also had an echo done which showed any ejection fraction of 55%. She was admitted to the hospital for further workup. She states she gets very short- winded from any activity. Then able to lay down flat without shortness of breath. She has not noticed any significant swelling in her legs, but she has been having some dysuria. She monitors her fluid intake closely. At this time , will admit her to the hospital an will get Cardiology and Renal consultation. Allergies iodine [Iodine] Allergy (Severe, Verified 09/21/18 02:41) throat swelling diphenhydramine HCl [From Benadryl] Allergy (Verified 09/21/18 02:41) Anaphylaxis morphine Allergy (Verified 09/21/18 02:41) Unknown Sulfa (Sulfonamide Antibiotics) Allergy (Verified 09/21/18 02:41) Unknown sulfamethoxazole [From Bactrim] Allergy (Verified 09/21/18 02:41) Anaphylaxis trimethoprim [From Bactrim] Allergy (Verified 09/21/18 02:41) Anaphylaxis levofloxacin [From Levaquin] Adverse Reaction (Severe, Verified 09/21/18 02:41) vomiting metoclopramide [From Reglan] Adverse Reaction (Verified 09/21/18 02:41) Nausea/Vomiting promethazine [From Phenergan] Adverse Reaction (Verified 09/21/18 02:41) Nausea/Vomiting Narcotics Allergy (Severe, Uncoded 09/21/18 02:41) Anaphylaxis Home Medications: Atorvastatin Calcium [Lipitor] 80 mg PO BEDTIME 08/22/18 Bumetanide [Bumex*] 1 mg PO BID 08/22/18 Clopidogrel Bisulfate [Plavix*] 75 mg PO DAILY 08/22/18 Folic Acid 1 mg PO DAILY 08/22/18 Nitroglycerin [Nitrostat*] 0.4 mg SL SEECOM 08/22/18 Cholecalciferol (Vitamin D3) [Vitamin D 5,000 IU Cap*] 5,000 unit PO DAILY #30 cap 09/03/18 Insulin Degludec [Tresiba Flextouch U-200] 10 unit SQ BEDTIME #30 ml 09/03/18 Linagliptin [Tradjenta] 5 mg PO DAILY 09/10/18 Carvedilol [Coreg*] 6.25 mg PO BID #60 tab 09/21/18 - Past Medical/Surgical History Has patient received pneumonia vaccine in the past: Yes Diabetic: Yes -: Diabetes mellitus type 2 -: Hypertension -: Chronic renal disease -: Broken tani shoulders, toes tani feet, L elbow hx -: Cataract -: History DVT to the left lower extremity -: Hyperlipidemia -: CAD with multiple stents -: Peripheral vascular disease -: Carotid arterial disease -: History of osteomyelitis -: Severe cervical spine disease -: Cardiac Cath with 3 stents -: 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 She has 6 children - Family History Father Medical History: GI disease, Cancer Mother Medical History: GI disease, Stroke, Cancer, Other (see notes) Notes: brain tumor Brother Medical History: Heart disease, Hypertension, Diabetes, Kidney disease Sister Medical History: Heart disease, Hypertension, GI disease - Social History Smoking Status: Never smoker Alcohol use: No CD- Drugs: No Caffeine use: Yes Place of Residence: Home Review of Systems 10-point ROS is otherwise unremarkable Physical Examination - Vital Signs Temperature: 97.5 F Blood Pressure: 145/66 Pulse: 79 Respirations: 14 Pulse Ox (%): 97 - Physical Exam General: Alert, In no apparent distress, Oriented x3 HEENT: Atraumatic, PERRLA, Mucous membr. moist/pink, EOMI, Sclerae nonicteric Neck: Supple, 2+ carotid pulse no bruit, No LAD, Without JVD or thyroid abnormality Respiratory: Crackles/rales Cardiovascular: Regular rate/rhythm, Normal S1 S2, No murmurs Gastrointestinal: Normal bowel sounds, Soft and benign, Non-distended, No tenderness Musculoskeletal: No clubbing, No swelling, No tenderness Integumentary: No rashes Neurological: Normal gait, Normal speech, Normal strength at 5/5 x4 extr, Normal tone, Sensation intact, Cranial nerves 3-12 intact, Normal affect Lymphatics: No axilla or inguinal lymphadenopathy - Studies Laboratory Data (last 24 hrs) 09/20/18 22:25: PT 12.1, INR 1.03 09/20/18 22:25: WBC 9.7 D, Hgb 12.1, Hct 38.0, Plt Count 267 09/20/18 22:25: Sodium 136, Potassium 4.7, BUN 54 H, Creatinine 2.88 H, Glucose 326 H, Magnesium 2.3, Total Bilirubin 0.4, AST 17, ALT 31, Alkaline Phosphatase 106, Lipase 172 Assessment & Plan - Problems (Diagnosis) (1) Acute CHF (congestive heart failure) Status: Acute (2) Acute on chronic renal failure Onset Date: 12/08/16 Status: Acute Qualifiers: Acute renal failure type: unspecified Chronic kidney disease stage: stage 3 (moderate) Qualified Code(s): N17.9 - Acute kidney failure, unspecified; N18.3 - Chronic kidney disease, stage 3 (moderate) (3) Acute respiratory failure Status: Acute Qualifiers: Respiratory failure complication: hypoxia Qualified Code(s): J96.01 - Acute respiratory failure with hypoxia (4) CAD (coronary artery disease) Onset Date: 05/16/14 Status: Chronic Qualifiers: Coronary Disease-Associated Artery/Lesion type: [place] artery [place] vs. 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 use: with skilled nursing use Diabetes mellitus complication status: with kidney complications Diabetes mellitus complication detail: with chronic kidney disease (6) Hyperlipidemia Onset Date: 12/08/16 Status: Chronic Qualifiers: Hyperlipidemia type: mixed hyperlipidemia Qualified Code(s): E78.2 - Mixed hyperlipidemia (7) Obesity Status: Chronic Qualifiers: Obesity type: due to excess calories Obesity classification: adult class 1 (BMI 30 - 34.9) Serious obesity comorbidity presence: without serious comorbidity Body mass index: BMI 32.0-32.9 Qualified Code(s): E66.09 - Other obesity due to excess calories; Z68.32 - Body mass index (BMI) 32.0-32.9, adult (8) PVD (peripheral vascular disease) Onset Date: 06/30/16 Status: Chronic - Plan 1. Echocardiogram will be reviewed 2. Stop her amiodarone per Cardiology 3. Change Lopressor to carvedilol 4. Cardiology and Nephrology consultation 5. Continue with aggressive diuresis 6. Strict I's and O's 7. Repeat CXR 8. Daily weights 9. Education regarding diet and treatment of congestive heart failure Discharge Plan: Home Plan to discharge in: 48 Hours - Advance Directives Does patient have a Living Will: No Does patient have a Durable POA for Healthcare: Yes - Code Status/Comfort Care Code Status Assessed: Yes Code Status: Full Code Critical Care: No Time Spent Managing PTS Care (In Minutes): 45
[2018-09-21] MEDS: INSULIN -REGULAR HUMAN 50 UNIT/0.5 ML ML SQ SCH ×3 (12:23→21:00)
[2018-09-21] MEDS: CARVEDILOL 6.25 MG TAB PO SCH ×2 (12:25→20:57)
--- NOTE | 2018-09-21 12:34 | EKG ---
Test Date: 2018-09-20 Test Time: 22:04:42 Visitor Service Assistant: FABIOLA MEASUREMENT RESULTS: Intervals: Rate: 93 CT: 182 QRSD: 96 QT: 378 QTc: 469 Lowry: P: 54 CT: 182 QRS: 21 T: 114 INTERPRETIVE STATEMENTS: Normal sinus rhythm Low voltage QRS Cannot rule out Anteroseptal infarct, age undetermined Abnormal ECG Compared to ECG 09/10/2018 09:35:35 Low QRS voltage now present Sinus tachycardia no longer present Myocardial infarct finding still present Electronically Signed On 09-21-18 12:32:48 CDT by Portillo Arteaga
[2018-09-21 12:47] VITALS: O2SAT 97
[2018-09-21] MEDS ORDERED: FUROSEMIDE 40 MG/4 ML VIAL IV SCH (17:00)
[2018-09-21] MEDS ORDERED: ATORVASTATIN 80 MG TAB PO SCH (21:00)
[2018-09-21] MEDS ORDERED: BUMETANIDE 1 MG TABLET PO SCH (21:00)
--- NOTE | 2018-09-21 21:30 | P.CNS ---
Date of Consult: 09/21/18 Reason for Consult: OTIS Requesting Physician: Josie Perry Chief Complaint: DYSPNEA History of Present Illness: 78 yo HF DM, HTN presented to the ER with 1-3 days of moderate, progressive dyspnea in the setting of CHF with associated OTIS/ CKD. Reports poor urine output over the past few days. No NSAIDs. Feeling better today with improved urine output. Still requiring Oxygen. Allergies iodine [Iodine] Allergy (Severe, Verified 09/21/18 02:41) throat swelling diphenhydramine HCl [From Benadryl] Allergy (Verified 09/21/18 02:41) Anaphylaxis morphine Allergy (Verified 09/21/18 02:41) Unknown Sulfa (Sulfonamide Antibiotics) Allergy (Verified 09/21/18 02:41) Unknown sulfamethoxazole [From Bactrim] Allergy (Verified 09/21/18 02:41) Anaphylaxis trimethoprim [From Bactrim] Allergy (Verified 09/21/18 02:41) Anaphylaxis levofloxacin [From Levaquin] Adverse Reaction (Severe, Verified 09/21/18 02:41) vomiting metoclopramide [From Reglan] Adverse Reaction (Verified 09/21/18 02:41) Nausea/Vomiting promethazine [From Phenergan] Adverse Reaction (Verified 09/21/18 02:41) Nausea/Vomiting Narcotics Allergy (Severe, Uncoded 09/21/18 02:41) Anaphylaxis Home medications list reviewed: Yes Home Medications: Atorvastatin Calcium [Lipitor] 80 mg PO BEDTIME 08/22/18 Bumetanide [Bumex*] 1 mg PO BID 08/22/18 Clopidogrel Bisulfate [Plavix*] 75 mg PO DAILY 08/22/18 Folic Acid 1 mg PO DAILY 08/22/18 Nitroglycerin [Nitrostat*] 0.4 mg SL SEECOM 08/22/18 Cholecalciferol (Vitamin D3) [Vitamin D 5,000 IU Cap*] 5,000 unit PO DAILY #30 cap 09/03/18 Insulin Degludec [Tresiba Flextouch U-200] 10 unit SQ BEDTIME #30 ml 09/03/18 Linagliptin [Tradjenta] 5 mg PO DAILY 09/10/18 Carvedilol [Coreg*] 6.25 mg PO BID #60 tab 09/21/18 - Past Medical/Surgical History Diabetic: Yes -: Diabetes mellitus type 2 -: Hypertension -: Chronic renal disease -: Broken tani shoulders, toes tani feet, L elbow hx -: Cataract -: History DVT to the left lower extremity -: Hyperlipidemia -: CAD with multiple stents -: Peripheral vascular disease -: Carotid arterial disease -: History of osteomyelitis -: Severe cervical spine disease -: Cardiac Cath with 3 stents -: 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 She has 6 children - Family History Father Medical History: GI disease, Cancer Mother Medical History: GI disease, Stroke, Cancer, Other (see notes) Notes: brain tumor Brother Medical History: Heart disease, Hypertension, Diabetes, Kidney disease Sister Medical History: Heart disease, Hypertension, GI disease - Social History Smoking Status: Never smoker Alcohol use: No CD- Drugs: No Caffeine use: Yes Place of Residence: Home Review of Systems 10-point ROS is otherwise unremarkable General: Weakness, Malaise Respiratory: SOB with Excertion Cardiovascular: Edema Neurological: Weakness Physical Examination Temp Pulse Resp BP Pulse Ox 97.7 F 81 14 136/63 96 09/21/18 16:00 09/21/18 20:57 09/21/18 16:00 09/21/18 20:57 09/21/18 16:00 General: In no apparent distress, Oriented x3, Cooperative HEENT: Atraumatic, Mucous membr. moist/pink Neck: Supple Respiratory: Clear to auscultation bilaterally, Normal air movement Cardiovascular: No edema, Regular rate/rhythm, No rubs Gastrointestinal: Soft and benign, Non-distended, No rebound Musculoskeletal: No clubbing, No contractures Integumentary: No rashes, No cyanosis Neurological: Normal speech Laboratory Data (last 24 hrs) 09/20/18 22:25: PT 12.1, INR 1.03 09/20/18 22:25: WBC 9.7 D, Hgb 12.1, Hct 38.0, Plt Count 267 09/20/18 22:25: Sodium 136, Potassium 4.7, BUN 54 H, Creatinine 2.88 H, Glucose 326 H, Magnesium 2.3, Total Bilirubin 0.4, AST 17, ALT 31, Alkaline Phosphatase 106, Lipase 172 Imagings Data: EXAM DESCRIPTION: Axel Single View09/20/2018 11:57 pm CLINICAL HISTORY: Shortness of breath COMPARISON: September 20, 2018 FINDINGS: Moderate left and small to moderate right pleural effusions with bibasilar atelectasis Left and [id number] right pulmonary opacities. Heart is enlarged IMPRESSION: CHF NORMAL LEFT VENTRICULAR EJECTION FRACTION. LEFT VENTRICULAR HYPERTROPHY. MILD MITRAL REGURGITATION. IMPAIRED LEFT VENTRICULAR RELAXATION. DILATED LEFT ATRIUM. MILD MITRAL LEAFLET CALCIFICATION. NO PERICARDIAL EFFUSION. Conclusions/Impression: A/ OTIS likely CRS. CKD IV with proteinuria. Diastolic CHF, A/C. HTN with CKD/ CHF. DM II with CKD. Anemia in chronic illness. CAD/ PAD. P/ Continue current POC and Medications. Continue diuresis. Continue Oxygen for hypoxemia. Agree with stopping amiodarone due to possible toxicity. No NSAIDs. AM labs. Daily weight. Thank you kindly for the consultation.
[2018-09-22 00:57] VITALS: BP 145/66; TEMP 97.5
[2018-09-22] MEDS ORDERED: VITAMIN D 5,000 UNIT CAP PO SCH (09:00)
[2018-09-22] MEDS ORDERED: CLOPIDOGREL 75 MG TABLET PO SCH (09:00)
[2018-09-22] MEDS ORDERED: FOLIC ACID 1 MG TABLET PO SCH (09:00)
--- NOTE | 2018-09-24 15:15 | RAD REPORT ---
EXAM DESCRIPTION: CT - Thorax Wo [place] - 09/21/2018 3:04 am CLINICAL HISTORY: 78 years Female PAIN COMPARISON: None TECHNIQUE: Images were obtained in axial, sagittal, and coronal planes. No intravenous contrast was administered. This exam was performed according to our departmental dose-optimization program which includes use of Automated Exposure Control, adjustment of the mA and/or kV according to patient size and/or use of i terative reconstruction technique. FINDINGS: No dilatation aortic root. Moderate to large bilateral pleural effusions. No pericardial e ffusion. No adenopathy. Coronary artery calcification. Confluent airspace attenuation right lower lobe and right middle lobe as well as lingula and left low er lobe. Air bronchograms with consolidation left lower lobe. Thickening of interlobular septa bilate rally. Groundglass attenuation right lung as well as left lung base. No pneumothorax. No acute osseous abnormality.. Prior cholecystectomy. IMPRESSION: Enlarged heart with interstitial edema and moderate to large bilateral pleural effusions . The findings would be consistent with congestive heart failure. Additional bilateral infiltrate and atelectatic change with consolidation left lower lobe. Electronically signed by: Ambar Casillas MD 09/21/2018 12:42 AM CDT Due to temporary technical issues with the PACS/Fluency reporting system, reports are being signed by the in house radiologist as a courtesy to ensure prompt reporting. The interpreting radiologist is f ully responsible for the content of the report.
== END 2018-09-21 21:30 | disposition home or self-care (01) ==
LOC: ER 21:56 → ERHOLD 09-21 01:26 → 4TH 09-21 01:41
PROVIDERS: ADMIT Hospitalist; ATTEND Family Medicine
DX: I13.0 Hypertensive heart and chronic kidney disease with heart failure and stage 1 through stage 4 chronic kidney disease, or unspecified chronic kidney disease (principal); I50.43 Acute on chronic combined systolic (congestive) and diastolic (congestive) heart failure; N17.9 Acute kidney failure, unspecified; N18.4 Chronic kidney disease, stage 4 (severe); J96.01 Acute respiratory failure with hypoxia; D64.9 Anemia, unspecified; D63.1 Anemia in chronic kidney disease; E11.22 Type 2 diabetes mellitus with diabetic chronic kidney disease; E78.2 Mixed hyperlipidemia; E11.51 Type 2 diabetes mellitus with diabetic peripheral angiopathy without gangrene; I25.10 Atherosclerotic heart disease of native coronary artery without angina pectoris; I34.0 Nonrheumatic mitral (valve) insufficiency; Z79.02 Long term (current) use of antithrombotics/antiplatelets; Z79.82 Long term (current) use of aspirin; Z79.4 Long term (current) use of insulin; Z79.899 Other long term (current) drug therapy; Z95.5 Presence of coronary angioplasty implant and graft; E66.09 Other obesity due to excess calories; Z68.32 Body mass index [BMI] 32.0-32.9, adult
CPT/HCPCS: 93005; 87040 ×2; 85025 ×2; 80048; 36415; 83735 ×2; 82550; 84100; 85610; 80061; 82962 ×4; 85379; 80076; 84443; 84484 ×3; 84439; 83690; 80053; 83880 ×2; 71250; 71045; 94760 ×2; 96374; 99285; J1940 ×2; J1650; G0378 ×2; 81003; 81015

== ENCOUNTER 2018-11-10 16:49 | Emergency (ER) | payer OTHER ==
[~2018-11-10 16:49] MED LIST: FENTANYL CITR 100 MCG/2 ML ONE; NA CHLORIDE 0.9% 500 ML ONE
--- OUTSIDE RECORDS SUMMARY | 2018-11-10 16:53 | XMS REPORT | Clinical Summary ---
:1940 Author Organization [facility] Address [address] [place] [address] Care Team Providers Name Role Phone John Perry Primary Care Provider Unavailable Roland Dueñas Unavailable Hakan King Heat Treatment Technician Allergies Active Allergy Reactions Severity Noted Date [...] Encounter Cardiology Tina Christianson Unstable angina ( [facility]) (Primary Dx); 08/20/2018 MD Olman CKD (chronic kidney disease) stage 4, GFR 15-29 ml/min ([facility]); Deo Sung, NSTEMI (non-ST elevated myocardial infarction) ([facility]); Acute hypoxemic respiratory failure ([facility]); Edie OTIS (acute kidney injury) ([facility]); MD Daniel NSTEMI s/p Impella PCI by Dr. Todd 08/01/18; Spencer Todd Anemia of renal disease; MD Дмитрий Refusal of blood transfusions as patient is Sabianism 07/31/2018 Orders Only General Internal Medicine after 11/09/2017 Social History Tobacco Use Types Packs/Day Years [...] Not on file Implants Implanted Type Area Drafter Civil Engineering Device Shelf Model / Identifier Expiration Serial / Date Lot Stent Synergy Mr 2.64w88eb [id number] - [id number] IMPLANTS N/A: BOSTON [id number] 04/04/2020 [id number] / Implanted: Qty: 1 on 08/01/2018 by Spencer Todd MD Coronary SCI:INTERV / CARDIOLOGY [id number] Stent Synergy Mr 2.09e12vd [id number] - [id number] IMPLANTS N/A: BOSTON [id number] 04/04/2020 [id number] / Implanted: Qty: 1 on 08/01/2018 by Spencer Todd MD Coronary SCI:INTERV / CARDIOLOGY [id number] Stent [employer] Mr 2.73l60ik [id number] - [id number] IMPLANTS N/A: BOSTON [id number] 04/01/2020 [id number] / Implanted: Qty: 1 on 08/01/2018 by Spencer Todd MD Coronary SCI:INTERV / CARDIOLOGY [id number] Stent Synergy Otw 3.55r21gg [id number] - [id number] IMPLANTS Left: BOSTON [id number] 05/16/2020 [id number] / Implanted: Qty: 1 on 08/07/2018 by Spencer Todd MD Coronary SCI:INTERV / CARDIOLOGY [id number] Stent Synergy Otw 2.07k14hy [id number] - [id number] IMPLANTS Right: BOSTON [id number] 04/30/2020 [id number] / Implanted: Qty: 1 on 08/07/2018 by Spencer Todd MD Coronary SCI:INTERV / CARDIOLOGY [id number] Stent Synergy Otw 2.92v61ru [id number] - [id number] IMPLANTS Right: BOSTON [id number] 05/21/2020 [id number] / Implanted: Qty: 1 on 08/07/2018 by Spencer Todd MD Coronary SCI:INTERV / CARDIOLOGY [id number] Stent Synergy Mr 3.04s85ow [id number] - [id number] IMPLANTS Right: BOSTON [id number] 04/10/2020 [id number] / Implanted: Qty: 1 on 08/07/2018 by Spencer Todd MD Coronary SCI:INTERV / CARDIOLOGY [id number] Stent Synergy Otw [id number] - [id number] IMPLANTS Right: BOSTON [id number] 04/15/2020 [id number] / Implanted: Qty: 1 on 08/07/2018 by Spencer Todd MD Coronary SCI:INTERV / CARDIOLOGY [id number] Procedures Procedure Name Priority Date/Time Associated Comments [...] 390 ms QTC Calculation(Bazett) 492 ms P Adams 68 degrees R Adams 41 degrees T Adams 107 degrees Normal sinus rhythm Low voltage [...] 382 ms QTC Calculation(Bazett) 495 ms P Adams 80 degrees R Adams 60 degrees T Adams 61 degrees Sinus tachycardia Low voltage QRS [...] 448 ms QTC Calculation(Bazett) 469 ms P Adams 52 degrees R Adams 15 degrees T Adams 79 degrees Normal sinus rhythm Septal infarct , age undetermined Abnormal ECG No previous ECGs available after 11/09/2017 Results VASCULAR DIAGRAM -SCAN (08/24/2018 12:15 PM [...] (H)Comment: TESTED AT 70 - 110 mg/dL [facility] [address] [facility] [address] Specimen Blood Performing Organization Address City/State/Zipcode Phone Number [address] [address] CENTER CBC with platelet count + automated diff (08/20/2018 9:27 AM CDT)Only the most recent of17 resultswithin the time period is included. WBC 4.7 3.5 - 10.5 K/L [facility] RBC 3.14 (L) 3.93 - 5.22 M/L [facility] Hemoglobin 10.1 (L) 11.2 - 15.7 GM/DL [facility] Hematocrit 34.0 (L) 34.1 - 44.9 % [facility] MCV 108.3 (H)Comment: 79.4 - 94.[address] [facility] Discordant results [facility] compared to previous result; clinical correlation required. MCH 32.2 25.6 - 32.2 pg [facility] MCHC 29.7 (L) 32.2 - 35.5 GM/DL [facility] RDW 18.5 (H) 11.7 - 14.4 % [facility] Platelets 186 150 - 450 K/CU MM [facility] MPV 9.5 9.4 - 12.3 fL [facility] nRBC 0 0 - 0 /100 WBC [facility] % Neutros 67 % [facility] % Lymphs 14 % [facility] % Monos 14 % [facility] % Eos 3 % [facility] % Baso 1 % [facility] # Neutros 3.16 1.56 - 6.13 K/L [facility] # Lymphs 0.67 (L) 1.18 - 3.74 K/L [facility] # Monos 0.65 (H) 0.24 - 0.36 K/L [facility] # Eos 0.15 0.04 - 0.36 K/L [facility] # Baso 0.03 0.01 - 0.08 K/L [facility] Immature 1 0 - 1 % [facility] Granulocytes-[facility] Specimen Blood Performing Organization Address City/State/Zipcode Phone Number [facility] [address] [place] [address] [phone] CENTER Basic Metabolic Panel (08/20/2018 3:38 AM CDT)Only the most recent of17 resultswithin the time period is included. Sodium 136 136 - 145 meq/L [facility] Potassium 4.0 3.5 - 5.1 meq/L [facility] Chloride 100 98 - 107 meq/L [facility] CO2 26 22 - 29 meq/L [facility] BUN 55 (H) 7 - 21 mg/dL [facility] Creatinine 2.87 (H) 0.57 - 1.25 mg/dL [facility] Glucose 79 70 - 105 mg/dL [facility] Calcium 8.6 8.4 - 10.2 mg/dL [facility] EGFR 16Comment: ESTIMATED GFR IS mL/min/1.73 sq m [facility] NOT ACCURATE [facility] CLEARANCE IN PREDICTING GLOMERULAR FILTRATION RATE. ESTIMATED GFR IS NOT APPLICABLE FOR DIALYSIS PATIENTS. Specimen Blood Performing Organization Address City/State/Zipcode Phone Number [facility] [address] [place] [address] [phone] pelvis without IV contrast (08/16/2018 2:38 AM CDT) Specimen Narrative Performed At FINAL REPORT Bettery CT pelvis without contrast HISTORY: left groin/femoral [...] MD Report Verified Date/Time:08/16/2018 08:42:53 Reading Location: [facility] Radiology Reading Room Procedure Note Interface, [...] Report Verified Date/Time: 08/16/2018 08:42:53 Reading Location: [facility] Radiology Reading Room Performing Organization Address City/State/Zipcode Phone Number [employer] ECHOCARDIOGRAM REPORT - SCAN (08/15/2018 9:12 PM CDT) Narrative Performed At Limited 2D Echocardiogram (08/15/2018 3:53 PM CDT) Ejection Fraction [facility] Specimen Narrative Performed At Transthoracic Echocardiography Report (TTE) [facility] Demographics Patient NameHENRIQUE ARECHIGA Date of Study08/15/2018 ESCOBDEO Gender Female Visit [id number] Race [id number] Number Date of 1940 [facility] Physician Age 78 year(s) SonographerPretty Long [facility] Shipping Manager Amber Kaplan [facility] Interpreting Nat Pettit MD Procedure Type of [...] inferolateral. Beauchamp's method of disk assessment is ejphwvjyen-pc-suioyo reduced (30%) . 2. The right ventricular [...] moderately enlarged (female - LVED vol -71-80ml/m2). Qoomwakn-bu-cllazk concentric LV hypertrophy. Global LV systolic function mnzjzzlj-ei-jmwkbhnt reduced . LVEF by Beauchamp's method of disk assessment is txvhgbiyxo-qc-scnlwn reduced (30%) . The following segment(s) appear [...] Study 08/15/2018 ESCOBDEO Gender Female Visit Number [id number] Race Room Number [id number] Number Date of 1940 Referring Peyton Choe Physician Age 78 year(s) Automotive Sales Executive Pretty Long RDCS Shipping Manager Amber Kaplan RDCS Interpreting Nat Pettit [...] inferolateral. Beauchamp's method of disk assessment is ejbgxuutrk-cy-wpkijb reduced (30%) . 2. The right ventricular [...] moderately enlarged (female - LVED vol -71-80ml/m2). Zcspkrxc-mi-tyeopz concentric LV hypertrophy. Global LV systolic function iysrdgbe-mo-tzjqymyd reduced . LVEF by Beauchamp's method of disk assessment is igvfpntnge-bz-cavmse reduced (30%) . The following segment(s) appear [...] cm LV PW Diastolic: 1.63 cm LVEDV Beauhcamp's:137.8 ml LVESV Beauchamp's:96.45 ml LVEF Beauchamp's: 30 % LVEDVI: 77 ml/m^2 LVESVI: 54 ml/m^2 Performing Organization Address City/[facility] Cent[facility]ode Phone Number [facility] MKCKESSEFREN CPACS Urinalysis w/Microscopic + Reflex to Culture (08/14/2018 10:53 AM CDT)Only the most recent of2 resultswithin the time period is included. Color, UA Light Yellow [facility] Clarity, UA Hazy [facility] Specific [place], UA 1.009 1.001 - 1.035 [facility] pH, UA 6.0 5.0 - 8.0 [facility] Protein, UA 30 mg/dL (A) Negative [facility] Glucose, UA Negative Negative [facility] Ketones, UA Negative Negative [facility] Bilirubin, UA Negative Negative [facility] Blood, UA Small (A) Negative [facility] Nitrite, UA Negative Negative [facility] Leukocytes, UA Large (A) Negative [facility] Urobilinogen, UA 0.2 0.2 - 1.0 mg/dL [facility] RBC, UA 0 /HPF [facility] WBC, UA >182 /HPF [facility] Bacteria, UA Many [facility] Squam Epithel, UA <1 /HPF [facility] Renal Epithelial 15 /HPF [facility] WBC Casts 14 /LPF [facility] Specimen Source [facility] Specimen Urine Performing Organization Address City/State/Zipcode Phone Number [facility] [address] [place] [address] [phone] [place] Urine culture (08/14/2018 10:53 AM CDT)Only the most recent of2 resultswithin the time period is included. Result >100,000 col/mL Raoultella [facility] ornithinolytic (A) MEDICAL [place] Gram Stain Result 4+ gram negative rods [facility] Gram Stain Result 4+ WBCs [facility] Specimen Urine Organism Antibiotic Method [...] Resistant Performing Organization Address City/State/Zipcode Phone Number [address] [address] [place] Respiratory Panel [facility] (08/14/2018 10:18 AM CDT) Human Metapneumovirus Not detected Not detected, [facility] Rhinovirus Not detected Not detected, [facility] Influenza A Not detected Not detected, [facility] INFLUENZA A (NO SUBTYPE) Not detected, [facility] Influenza A subtype H1 Not detected, [facility] Influenza A Subtype H3 Not detected, [facility] Influenza A Subtype H1-2009 Not detected, [facility] Influenza B Not detected Not detected, [facility] Respiratory Syncytial Virus Not detected Not detected, [facility] Parainfluenza Virus 1 Not detected Not detected, [facility] Parainfluenza Virus 2 Not detected Not detected, [facility] Parainfluenza virus 3 Not detected Not detected, [facility] Parainfluenza Virus 4 Not detected Not detected, [facility] Adenovirus Not detected Not detected, [facility] Coronavirus 229E Not detected Not detected, [facility] Coronavirus HKU1 Not detected Not detected, [facility] Coronavirus NL63 Not detected Not detected, [facility] Coronavirus OC43 Not detected Not detected, [facility] Bordetella Pertussis Not detected Not detected, [facility] Chlamydophila Pneumoniae Not detected Not detected, [facility] Mycoplasma Pneumoniae Not detected Not detected, [facility] Specimen Nasopharyngeal Narrative Performed At Other viruses and bacteria not targeted by [facility] this PCR panel cannot be excluded; therefore clinical correlation and follow up of serology, culture results, and other molecular studies is required. The results are not intended to be used as the sole means for clinical diagnosis or patient management decisions. This sample was tested at the [facility] using the FuniumArray Respiratory Panel. It is FDA cleared and has been verified and approved by the [facility] for clinical use on nasopharyngeal swab specimens. The performance of the FilmArray RP has not been established in individuals who received influenza vaccine.Recent administration of a nasal influenza vaccine may cause false positive results for Influenza A and/or Influenza B. Performing Organization Address City/State/Zipcode Phone Number [facility] MEDICAL [address] [place] [phone] CENTER XR chest 1 view portable / [...] MD Report Verified Date/Time:08/14/2018 09:50:21 Reading Location: [facility] Radiology Reading Room Procedure Note Interface, [...] Report Verified Date/Time: 08/14/2018 09:50:21 Reading Location: [facility] Radiology Reading Room Performing Organization Address City/State/Zipcode Phone Number RIS Manual Differential (08/14/2018 5:57 AM CDT)Only the most recent of2 resultswithin the time period is included. % Neutros 86 % [facility] % Lymphs 4 % [facility] % Monos 5 % [facility] % Eos 2 % [facility] % Metamyelo 2 (H) 0 - 0 % [facility] % Myelo 1 (H) 0 - 0 % [facility] # Neutros 9.98 (H) 1.56 - 6.13 K/ul [facility] # Lymphs 0.46 (L) 1.18 - 3.74 K/ul [facility] # Monos 0.58 (H) 0.24 - 0.36 K/uL [facility] # Eos 0.23 0.04 - 0.36 K/uL [facility] # Metamyelo 0.23 (H) 0.00 - 0.00 K/uL [facility] # Myelo 0.12 (H) 0.00 - 0.00 K/uL [facility] Total Counted 100 [facility] nRBC (manual) 1 (H) 0 - 0 /100 WBC [facility] WBC Morphology Normal [facility] Platelet Morphology Normal [facility] Polychromasia 1+ few [facility] Hypochromia 1+ few [facility] Artifact Present [facility] Platelet Conc Adequate [facility] Specimen Blood Narrative Performed At Received comment: [facility] User comments: Slide comments: Performing Organization Address City/State/Zipcode Phone Number [facility] [address] [place] [address] CENTER Calcium, Ionized (08/14/2018 5:57 AM CDT)Only the most recent of8 resultswithin the time period is included. Calcium, Ion 1.04 (L) 1.12 - 1.27 mmol/L [facility] pH, Blood 7.38 [facility] Specimen Blood Performing Organization Address City/[facility]/Zipcode Phone Number [address] [address] [phone] CENTER Phosphorus (08/14/2018 5:57 AM CDT)Only the most recent of7 resultswithin the time period is included. Phosphorus 2.3 2.3 - 4.7 mg/dL [facility] Specimen Blood Performing Organization Address City/[facility]/Zipcode Phone Number [address] [address] CENTER Magnesium (08/14/2018 5:57 AM CDT)Only the most recent of16 resultswithin the time period is included. Magnesium 2.0 1.6 - 2.6 mg/dL [facility] Specimen Blood Performing Organization Address City/[facility] Centercode Phone Number [address] [address] [place] Comprehensive metabolic panel (08/14/2018 5:57 AM CDT)Only the most recent of8 resultswithin the time period is included. Protein, Total 5.5 (L) 6.0 - 8.3 gm/dL [facility] Albumin 3.1 (L) 3.5 - 5.0 g/dL [facility] Alkaline Phosphatase 67 40 - 150 U/L [facility] Total Bilirubin 0.6 0.2 - 1.2 mg/dL [facility] Sodium 135 (L) 136 - 145 meq/L [facility] Potassium 3.8 3.5 - 5.1 meq/L [facility] Chloride 99 98 - 107 meq/L [facility] CO2 27 22 - 29 meq/L [facility] BUN 45 (H) 7 - 21 mg/dL [facility] Creatinine 3.56 (H) 0.57 - 1.25 mg/dL [facility] Glucose 116 (H) 70 - 105 mg/dL [facility] Calcium 8.5 8.4 - 10.2 mg/dL [facility] AST 30 5 - 34 U/L [facility] ALT 18 6 - 55 U/L [facility] EGFR 12Comment: ESTIMATED GFR mL/min/1.[address] [facility] IS NOT ACCURATE [facility] CREATININE CLEARANCE IN PREDICTING GLOMERULAR FILTRATION RATE. ESTIMATED GFR IS NOT APPLICABLE FOR DIALYSIS PATIENTS. Specimen Blood Performing Organization Address City/[facility]/Zipcode Phone Number [facility] [address] [place] [address] CENTER Blood gas, arterial (08/10/2018 2:27 PM CDT)Only the most recent of4 resultswithin the time period is included. pH, Arterial 7.44 7.35 - 7.45 [facility] pCO2, Arterial 38 35 - 45 mmHg [facility] pO2, Arterial 165 (H) 80 - 90 mmHg [facility] O2 Sat, Arterial 99.2 (H) 96.0 - 97.0 % [facility] HCO3, Arterial 26 21 - 29 mmol/L [facility] Base Excess, Arterial 1.1 -2.0 - 3.0 mmol/L [facility] Patient Temperature 36.4 C [facility] FIO2 44.0 % [facility] Specimen Blood, Arterial Performing Organization Address City/State/Zipcode Phone Number [facility] [address] [place] [address] CENTER Lactic Acid, Arterial (08/10/2018 2:26 PM CDT)Only the most recent of4 resultswithin the time period is included. Lactate, Art 0.9 0.5 - 2.2 mmol/L [facility] Specimen Blood, Arterial Performing Organization Address [facility]/Zipcode Phone Number [address] [phone] CENTER POC ACTIVATED CLOTTING TIME (08/07/2018 6:55 PM CDT)Only the most recent of6 resultswithin the time period is included. Activated Clotting Time 268Comment: TESTED AT sec [facility] [address] [place] [id number] Specimen Blood Performing Organization Address City/[facility] Centercode Phone Number [address] [address] [phone] [place] ECHOCARDIOGRAM REPORT - SCAN (08/06/2018 9:21 PM CDT) Narrative Performed At 2D Echo W/Doppler(CW/PW/Color) (08/06/2018 10:34 AM CDT) Ejection Fraction [facility] [employer] [facility] Specimen Narrative Performed At Transthoracic Echocardiography Report (TTE) [facility] Demographics Patient NameCARRIHENRIQUE MOSES Date of Study08/06/2018 ESCOBDEO Gender Female Visit [id number] Race [id number] Number Date of 1940 [facility] Age 78 year(s) SonographerPretty Long RDCS Shipping Manager Amber Kaplan RDCS Interpreting Physician XIMENA Cormier [...] Study 08/06/2018 ESCOBDEO Gender Female Visit Number [id number] Race Room Number [id number] Number Date of 1940 Referring Peyton Choe Physician Age 78 year(s) Automotive Sales Executive Pretty Long RDCS Shipping Manager Amber Kaplan RDCS Interpreting Garry Goodwin Physician [...] PTT 45.7 (H) 22.5 - 36.0 seconds [facility] Specimen Blood Narrative Performed At 4 hours after the start of continuous [facility] infusion and 4 hours after any rate change Performing Organization Address City/[facility] Centercode Phone Number [address] [address] CENTER Clostridium difficile [facility]DH Toxin (08/04/2018 9:51 AM CDT) C. Difficle Toxin Negative Negative [facility] C. Difficile [facility] Antigen Positive (A)Comment: C. Negative [facility] difficile present but toxin [facility] CENTER not detected. Indicates colonization with non-toxigenic strain or level of toxin below detectable levels. No need for enteric isolation. Treatment is rarely needed (only when strong clinical suspicion for Clostridium difficile infection) Specimen Stool Narrative Performed At Testing performed by [employer] [facility] Assay.For GDH, published sensitivity of the assay is 98.7% compared to cytotoxicity testing.For Toxin AB, published sensitivity is 87.8% and specificity 99.4% compared to cytotoxicity testing. Verification of kit performance was done by the [facility] Microbiology Lab prior to clinical use. Performing Organization Address City/[facility]/Zipcode Phone Number [address] [address] [place] Occult blood, stool (08/04/2018 9:51 AM CDT) Occult blood Positive (A) Negative [facility] Specimen Stool Performing Organization Address [facility] Centercode Phone Number [address] [address] [place] Troponin I (08/04/2018 5:44 AM CDT)Only the most recent of4 resultswithin the time period is included. Troponin I 44.85 (HH) 0.00 - 0.03 ng/mL [facility] Specimen Blood Narrative Performed At Troponin I (TnI) levels must be interpreted [facility] in the context of the [...] disease, and persistent tachyarrhythmia. Performing Organization Address [facility] Centercode Phone Number [address] [address] [place] ECHOCARDIOGRAM REPORT - SCAN (08/03/2018 9:22 PM CDT) Narrative Performed At Limited 2D Echocardiogram (08/03/2018 11:17 AM CDT) Ejection Fraction [facility] [employer] [facility] Specimen Narrative Performed At Transthoracic Echocardiography Report (TTE) [facility] [employer]CKESSON CPA Demographics Patient NameCARRILLO, ENEDELIADate of Study08/03/2018 ESCOBDEO Female Visit [id number] Room [id number] Number Date of 1Referring Peyton Palmer S Physician Age 78 year(s)Automotive Sales Executive Cheryl Phan [facility] Shipping Manager Nader Finley Interpreting Physician AurelianoMD Procedure [...] Study 08/03/2018 ESCOBDEO Gender Female Visit Number [id number] Race Room Number [id number] Number Date of 1940 Referring Peyton Choe Physician Age 78 year(s) Automotive Sales Executive Cherly Phan [facility] Shipping Manager Nader Finley Interpreting Kash Carr, Physician Procedure [...] Mary Ellen.: 3.1 cm Performing Organization Address City/[facility]/Zipcode Phone Number [facility] MKCKESSON CPACS Creatine Kinase (CK) (08/03/2018 9:24 AM CDT) Total CK 601 (H) 29 - 200 U/L [facility] Specimen Blood Performing Organization Address [facility] Centercoia Phone Number [facility] [address] [place] [address] [phone] CENTER ECG 12 lead (08/03/2018 8:00 AM CDT)Only the most recent of4 resultswithin the time period is included. Specimen Narrative Performed At Ventricular Rate 96 BPM GE MUSE Atrial Rate 96 BPM P-R Interval 176 ms QRS Duration 110 ms Q-T Interval 390 ms QTC Calculation(Bazett) 492 ms P Adams 68 degrees R Adams 41 degrees T Adams 107 degrees Normal sinus rhythm Low voltage [...] 390 ms QTC Calculation(Bazett) 492 ms P Adams 68 degrees R Adams 41 degrees T Adams 107 degrees Normal sinus rhythm Low voltage QRS Incomplete left bundle branch block Mild ST elevation with T wave inversion in aVL ST depression inferior and anterolateral leads consider subendocardial ischemia Prolonged QT Abnormal ECG When compared with ECG of 02-AUG-2018 06:46, No significant changes Confirmed by MD PATEL YOCHAI ([id number]) on 08/06/2018 6:32:30 AM Performing Organization Address [facility] Phone Number GE MUSE Reticulocyte count (08/03/2018 1:52 AM CDT) % Retic 2.7 (H) 0.5 - 1.7 % [facility] Specimen Blood Performing Organization Address City/State/Zipcode Phone Number [address] [phone] [place] Vitamin B12 and Folate (08/03/2018 1:51 AM CDT) Vitamin B12 212 (L) 213 - 816 pg/mL [facility] Folate 15.1 >=7.0 ng/mL [facility] Specimen Blood Performing Organization Address City/State/Zipcode Phone Number [address] [address] CENTER Iron, TIBC, % sat. (without ferritin) (08/03/2018 1:51 AM CDT) Iron 27.0 (L) 40.0 - 160.0 ug/dL [facility] TIBC 221 (L) 250 - 450 ug/dL [facility] Iron % Saturation 12 (L) 20 - 55 % [facility] Specimen Blood Performing Organization Address City/[facility]/Zipcode Phone Number [address] [address] [place] Ferritin (08/03/2018 1:51 AM CDT) Ferritin 207 5 - 275 ng/mL [facility] Specimen Blood Performing Organization Address City/[facility]/Zipcode Phone Number [address] [address] [place] US renal complete (08/02/2018 5:48 AM CDT) Specimen Narrative Performed At FINAL REPORT Bettery TECHNIQUE: Grayscale ultrasound of the kidneys and [...] Report Verified Date/Time:08/02/2018 08:45:50 Reading Location: [address] Radiology Reading Room Procedure Note Interface, [...] Verified Date/Time: 08/02/2018 08:45:50 Reading Location: [address] Radiology Reading Room Performing Organization Address City/State/[facility] Cent[facility]ode Phone Number [facility] Potassium-Stat Lab (08/02/2018 3:52 AM CDT)Only the most recent of3 resultswithin the time period is included. Potassium 4.6 3.6 - 5.5 meq/L [facility] Specimen Blood, Arterial Performing Organization Address [facility] Phone Number [address] [address] C[place] Sodium Na-Stat Lab (08/02/2018 3:52 AM CDT)Only the most recent of3 resultswithin the time period is included. Sodium 136 135 - 148 meq/L [facility] Specimen Blood, Arterial Performing Organization Address [facility] Phone Number [address] [address] [phone] CENTER Glucose-Stat Lab (08/02/2018 3:52 AM CDT)Only the most recent of3 resultswithin the time period is included. Glucose 272 (H) 70 - 110 mg/dL [facility] Specimen Blood, Arterial Performing Organization Address [facility] Phone Number [address] [address] [place] HGB/HCT (H&H)-Stat Lab (08/02/2018 3:52 AM CDT)Only the most recent of3 resultswithin the time period is included. Hemoglobin 10.9 (L) 12.0 - 15.0 g/dL [facility] Hematocrit 32.0 (L) 36.0 - 45.0 % [facility] Specimen Blood, Arterial Performing Organization Address [facility] Phone Number [address] [phone] C[place] Uric acid (08/02/2018 3:52 AM CDT) Uric Acid 9.1 (H)Comment: Specimen 2.6 - 7.2 mg/dL [facility] slightly hemolyzed [facility] Specimen Blood Performing Organization Address [facility] Centercoia Phone Number [address] [address] [phone] CENTER B-type Natriuretic Factor (BNP) (08/02/2018 3:52 AM CDT)Only the most recent of2 resultswithin the time period is included. BNP 1,452 (H) 0 - 100 pg/mL [facility] Specimen Blood Performing Organization Address [facility] Phone Number [address] [address] [phone] [place] PERIPHERAL VASCULAR REPORT - SCAN (08/01/2018 9:23 PM CDT) Narrative Performed At ECHOCARDIOGRAM REPORT - SCAN (08/01/2018 9:21 PM CDT) Narrative Performed At PT/aPTT (08/01/2018 7:07 PM CDT) Protime 33.9 (H) 11.9 - 14.2 seconds [facility] INR 3.6 <=5.9 [facility] PTT 85.5 (H) 22.5 - 36.0 seconds [facility] Specimen Blood Narrative Performed At Effective 07/18/2018: PT Reference Range [facility] Change New: 11.9-14.2Previous: 11.7-14.7 RECOMMENDED COUMADIN/WARFARIN INR THERAPY RANGES STANDARD DOSE: 2.0-3.0Includes: PROPHYLAXIS for venous thrombosis, systemic embolization; TREATMENT for venous thrombosis and/or pulmonary embolus. HIGH RISK: Target INR is 2.5-3.5 for patients wiht mechanical heart valves. Performing Organization Address City/[facility] Centercode Phone Number [facility] [address] [phone] CENTER Oxygen saturation, measured (08/01/2018 7:07 PM CDT) O2 Saturation (Measured) 41.9 % [facility] Specimen Blood Performing Organization Address City/State/Zipcode Phone Number [address] [address] C[place] Fibrinogen (08/01/2018 7:07 PM CDT) Fibrinogen 336 225 - 434 mg/dl [facility] Specimen Blood Performing Organization Address City/[facility] Centercode Phone Number [address] [address] [place] CBC (Hemogram only) (08/01/2018 7:07 PM CDT) WBC 14.1 (H) 3.5 - 10.5 K/L [facility] RBC 3.68 (L) 3.93 - 5.22 M/L [facility] Hemoglobin 11.3 11.2 - 15.7 GM/DL [facility] Hematocrit 34.6 34.1 - 44.9 % [facility] MCV 94.0 79.4 - 94.8 fL [facility] MCH 30.7 25.6 - 32.2 pg [facility] MCHC 32.7 32.2 - 35.5 GM/DL [facility] RDW 13.1 11.7 - 14.4 % [facility] Platelets 207 150 - 450 K/CU MM [facility] MPV 9.9 9.4 - 12.3 fL [facility] nRBC 0 0 - 0 /100 WBC [facility] Specimen Blood Performing Organization Address City/State/Zipcode Phone Number [address] [address] [phone] [place] Electrolytes (08/01/2018 7:07 PM CDT) Sodium 137 136 - 145 meq/L [facility] Potassium 4.8Comment: Specimen slightly 3.5 - 5.1 meq/L [facility] hemolyzed [facility] Chloride 109 (H) 98 - 107 meq/L [facility] CO2 20 (L) 22 - 29 meq/L [facility] Specimen Blood Narrative Performed At Call k > 5, [phone] [facility] Performing Organization Address City/[facility]/Zipcode Phone Number [address] [address] [phone] [place] Hemoglobin and hematocrit (08/01/2018 4:16 PM CDT) Hemoglobin 10.1 (L) 11.2 - 15.7 GM/DL [facility] Hematocrit 31.6 (L) 34.1 - 44.9 % [facility] Specimen Blood Performing Organization Address City/[facility] Centercode Phone Number [address] [address] [place] Platelet Aggregation: Function Screen (08/01/2018 8:04 AM CDT) Weak ADP 34 (L) 60 - 91 % [facility] Plt. Function Screen 0-39% indicates marked [facility] Interpretation platelet dysfunction [facility] Pathologist: Talia Villarreal MD [facility] (electronic signature) [facility] Platelets 186 150 - 450 K/CU [facility] Specimen Blood Narrative Performed At Platelet Function Screen results may be [facility] falsely low with platelet counts <100,000/cu mm. Performing Organization Address City/State/Zipcode Phone Number [address] [address] [phone] [place] Hepatic function panel (08/01/2018 5:25 AM CDT)Only the most recent of2 resultswithin the time period is included. Protein, Total 6.2Comment: Specimen 6.0 - 8.3 gm/dL [facility] hemolyzed [facility] Albumin 3.4 (L)Comment: Specimen 3.5 - 5.0 g/dL [facility] hemolyzed [facility] Total Bilirubin 0.4Comment: Specimen 0.2 - 1.2 mg/dL [facility] Bilirubin, Direct 0.1Comment: Specimen 0.1 - 0.5 mg/dL [facility] Phosphatase 59 40 - 150 U/L [facility] AST 19Comment: Specimen 5 - 34 U/L [facility] hemolyzed [facility] ALT 10Comment: Specimen 6 - 55 U/L [facility] Specimen Blood Performing Organization Address [facility] Centercode Phone Number [address] [address] C[place] Thrombin time (08/01/2018 4:18 AM CDT) Thrombin Time 64.9 (H) 13.8 - 20.0 secs [facility] Specimen Blood Narrative Performed At Draw baseline aPTT prior to infusion [facility] Performing Organization Address [facility] Centercode Phone Number [address] [address] C[place] Prothrombin time/INR (08/01/2018 4:18 AM CDT)Only the most recent of2 resultswithin the time period is included. Protime 15.0 (H) 11.9 - 14.2 seconds [facility] INR 1.2 <=5.9 [facility] Specimen Blood Narrative Performed At Effective 07/18/2018: PT Reference Range [facility] CENTER Change New: 11.9-14.2Previous: 11.7-14.7 RECOMMENDED COUMADIN/WARFARIN INR THERAPY RANGES STANDARD DOSE: 2.0-3.0Includes: PROPHYLAXIS for venous thrombosis, systemic embolization; TREATMENT for venous thrombosis and/or pulmonary embolus. HIGH RISK: Target INR is 2.5-3.5 for patients wiht mechanical heart valves. Draw baseline aPTT prior to infusion Performing Organization Address City/State/Zipcode Phone Number [facility] [address] [place] [address] CENTER 2D Echo W/Doppler(CW/PW/Color) (08/01/2018 2:05 AM CDT) Ejection Fraction [facility] Specimen Narrative Performed At Transthoracic Echocardiography Report (TTE) [facility] Demographics Patient NameCARRILLOHENRIQUE Date of Study 08/01/2018 ESCOBDEO GenderFemale Visit [id number] RaceUnknown Number [id number] Number Date of 1940 Referring Peyton Choe Physician Age 78 year(s) [employer] Sales Executive Nat Kuhn [facility], RVT InterpretingStep david Pettit, Physician FellowRey Ferraro [...] Study 08/01/2018 ESCOBDEO Gender Female Visit Number [id number] Race Unknown Room Number 6102 Number Date of 1940 Referring Peyton Choe Physician Age 78 year(s) [employer] Sales Executive Nat Kuhn RDCS, RVT Interpreting Nat Pettit, [...] Address City/State/Zipcode Phone Number [facility] Carotid doppler bilateral (08/01/2018 1:11 AM CDT) [facility] Specimen Impressions Performed At Right Impression [facility] 1. There is <50% diameter [...] Performed At LAB - Carotid Duplex Study [facility] Demographics Patient Name HENRIQUE ARECHIGA Date of Study08/01/2018 ESCOBDEO [id number] Visit Number [id number] Gender Female Accession Number [id number] Date of Birth1940 [facility] [id number] Physician SonographPerri Garces Interpreting Physician MaximusMD Procedure [...] Study 08/01/2018 ESCOBDEO Age 78 Visit Number [id number] Gender Female Accession Number [id number] Date of 1940 Referring Peyton Choe Room Number 6102 Physician [employer] Sales Executive Rex Garces Interpreting Brandi Camara, Physician Procedure [...] Additional Measurements:ICAPSV/CCAPSV 1.61.ICAEDV/CCAEDV 1.15. Performing Organization Address City/[facility] Centercode Phone Number [facility] TSH/T4 if indicated (07/31/2018 8:12 PM CDT) TSH 0.99 0.35 - 4.94 uIU/mL [facility] Specimen Blood Performing Organization Address City/[facility] Centercode Phone Number [facility] [address] [place] [address] CENTER after 11/09/2017 Insurance Payer Benefit Plan / Group Subscriber ID Type Phone Address [employer] [facility] xxxxxxxx Maps Contracted MEDICAID [place] xxxxxxxxx Medicaid Advance Directives Patient has advance care planning documents, and code status on file. For more information, please contact:[facility] [place] [address] [phone] Code Status Date Activated Date Inactivated Comments Full Code 08/01/2018 12:28 AM 08/20/2018 5:24 PM This code status was determined by: Patient Full Code 07/31/2018 7:56 PM 08/01/2018 12:28 AM This code status was determined by: Patient
--- OUTSIDE RECORDS SUMMARY | 2018-11-10 16:56 | XMS REPORT ---
:1940 [facility] [address] [place] [address] [address] [place] [address] Care Team Providers Name Role Phone RUMA [...] AT [facility] [address] [facility] yfzq=[phone]) [facility] [address] CBC W/PLT COUNT & AUTO [id number] 10:11:00 Test Item Value Reference Range Comments WHITE BLOOD CELL COUNT 4.7 K/ L 3.5-10.5 (BEAKER) (test lcya=782) RED BLOOD CELL COUNT (BEAKER) 3.14 M/ L 3.93-5.22 (test hvxo=099) HEMOGLOBIN (BEAKER) (test 10.1 GM/DL 11.2-15.7 evjo=793) HEMATOCRIT (BEAKER) (test 34.0 % 34.1-44.9 rszz=489) MEAN CORPUSCULAR VOLUME 108.3 fL 79.4-94.8 Discordant results compared (BEAKER) (test nfdi=112) to previous result; clinical correlation required. MEAN CORPUSCULAR HEMOGLOBIN 32.2 pg 25.6-32.2 (BEAKER) (test yzxk=963) MEAN CORPUSCULAR HEMOGLOBIN 29.7 GM/DL 32.2-35.5 CONC (BEAKER) (test wrgh=000) RED CELL DISTRIBUTION WIDTH 18.5 % 11.7-14.4 (BEAKER) (test phcq=572) PLATELET COUNT (BEAKER) (test 186 K/CU MM 150-450 phoy=522) MEAN PLATELET VOLUME (BEAKER) 9.5 fL 9.4-12.3 (test nvve=760) NUCLEATED RED BLOOD CELLS 0 /100 WBC 0-0 (BEAKER) (test wpxc=898) NEUTROPHILS RELATIVE PERCENT 67 % (BEAKER) (test xjeq=735) LYMPHOCYTES RELATIVE PERCENT 14 % (BEAKER) (test vnaa=095) MONOCYTES RELATIVE PERCENT 14 % (BEAKER) (test gbxa=132) EOSINOPHILS RELATIVE PERCENT 3 % (BEAKER) (test kpzg=695) BASOPHILS RELATIVE PERCENT 1 % (BEAKER) (test jyyq=692) NEUTROPHILS ABSOLUTE COUNT 3.16 K/ L 1.56-6.13 (BEAKER) (test aymz=521) LYMPHOCYTES ABSOLUTE COUNT 0.67 K/ L 1.18-3.74 (BEAKER) (test pclq=050) MONOCYTES ABSOLUTE COUNT 0.65 K/ L 0.24-0.36 (BEAKER) (test judq=222) EOSINOPHILS ABSOLUTE COUNT 0.15 K/ L 0.04-0.36 (BEAKER) (test xbcp=600) BASOPHILS ABSOLUTE COUNT 0.03 K/ L 0.01-0.08 (BEAKER) (test rklk=312) IMMATURE 1 % 0-1 GRANULOCYTES-RELATIVE PERCENT (BEAKER) (test fsun=5303) POCT-GLUCOSE [id number] 07:46:00 Test Item Value Reference Range Comments POC-GLUCOSE METER (BEAKER) 79 mg/dL 70-[address] [facility] [address] [facility] (test ehqc=5511) [facility] [address] BASIC METABOLIC [id number] 06:22:00 Test Item Value Reference Range Comments SODIUM (BEAKER) (test 136 meq/L 136-145 sumh=920) POTASSIUM (BEAKER) (test 4.0 meq/L 3.5-5.1 vrcf=917) CHLORIDE (BEAKER) (test 100 meq/L 98-107 vwbq=222) CO2 (BEAKER) (test 26 meq/L 22-29 cpuz=890) BLOOD UREA NITROGEN 55 mg/dL 7-21 (BEAKER) (test ecjw=399) CREATININE (BEAKER) (test 2.87 mg/dL 0.57-1.25 qlkm=559) GLUCOSE RANDOM (BEAKER) 79 mg/dL 70-105 (test ttnj=055) CALCIUM (BEAKER) (test 8.6 mg/dL 8.4-10.2 mztw=953) EGFR (BEAKER) (test 16 mL/min/1.73 sq m ESTIMATED GFR IS NOT wxvc=7032) ACCURATE CREATININE CLEARANCE IN PREDICTING GLOMERULAR FILTRATION RATE. ESTIMATED GFR IS NOT APPLICABLE FOR DIALYSIS PATIENTS. POCT-GLUCOSE [id number] 20:51:00 Test Item Value Reference Range Comments POC-GLUCOSE METER (BEAKER) 176 mg/dL 70-110 TESTED AT [address] (test epvt=6425) [place] [address] POCT-GLUCOSE [id number] 18:25:00 Test Item Value Reference Range Comments POC-GLUCOSE METER (BEAKER) 84 mg/dL 70-110 TESTED AT [address] (test klfd=3254) [place] [address] POCT-GLUCOSE [id number] 12:54:00 Test Item Value Reference Range Comments POC-GLUCOSE METER (BEAKER) 111 mg/dL 70-110 TESTED AT [address] (test fodp=3386) [place] [address] POCT-GLUCOSE [id number] 08:25:00 Test Item Value Reference Range Comments POC-GLUCOSE METER (BEAKER) 105 mg/dL 70-110 TESTED AT [address] (test ipvj=9526) [place] [address] BASIC METABOLIC [id number] 06:26:00 Test Item Value Reference Range Comments SODIUM (BEAKER) (test 137 meq/L 136-145 djpx=200) POTASSIUM (BEAKER) (test 3.9 meq/L 3.5-5.1 uqxc=800) CHLORIDE (BEAKER) (test 100 meq/L 98-107 snun=111) CO2 (BEAKER) (test 28 meq/L 22-29 fmkq=187) BLOOD UREA NITROGEN 53 mg/dL 7-21 (BEAKER) (test scov=069) CREATININE (BEAKER) (test 3.07 mg/dL 0.57-1.25 sckk=436) GLUCOSE RANDOM (BEAKER) 71 mg/dL 70-105 (test egex=861) CALCIUM (BEAKER) (test 8.6 mg/dL 8.4-10.2 xoho=827) EGFR (BEAKER) (test 15 mL/min/1.73 sq m ESTIMATED GFR IS NOT mjog=8679) ACCURATE CREATININE CLEARANCE IN PREDICTING GLOMERULAR FILTRATION RATE. ESTIMATED GFR IS NOT APPLICABLE FOR DIALYSIS PATIENTS. POCT-GLUCOSE [id number] 04:25:00 Test Item Value Reference Range Comments POC-GLUCOSE METER (BEAKER) 81 mg/dL 70-110 TESTED AT [address] (test dukt=0736) [place] [address] POCT-GLUCOSE [id number] 21:58:00 Test Item Value Reference Range Comments POC-GLUCOSE METER (BEAKER) 164 mg/dL 70-110 TESTED AT [address] (test vrjo=6235) [place] [address] POCT-GLUCOSE [id number] 18:38:00 Test Item Value Reference Range Comments POC-GLUCOSE METER (BEAKER) 98 mg/dL 70-110 TESTED AT [address] (test emxg=7103) [place] [address] POCT-GLUCOSE [id number] 13:14:00 Test Item Value Reference Range Comments POC-GLUCOSE METER (BEAKER) 105 mg/dL 70-110 TESTED AT [address] (test yedu=2781) [place] [address] POCT-GLUCOSE [id number] 08:12:00 Test Item Value Reference Range Comments POC-GLUCOSE METER (BEAKER) 115 mg/dL 70-110 TESTED AT [address] (test avhe=3315) [place] [address] BASIC METABOLIC [id number] 07:37:00 Test Item Value Reference Range Comments SODIUM (BEAKER) (test 136 meq/L 136-145 cakl=289) POTASSIUM (BEAKER) (test 3.7 meq/L 3.5-5.1 mhyx=375) CHLORIDE (BEAKER) (test 98 meq/L 98-107 kpjc=867) CO2 (BEAKER) (test 28 meq/L 22-29 pxkn=777) BLOOD UREA NITROGEN 54 mg/dL 7-21 (BEAKER) (test omee=434) CREATININE (BEAKER) (test 3.37 mg/dL 0.57-1.25 uvxs=958) GLUCOSE RANDOM (BEAKER) 85 mg/dL 70-105 (test bzuo=166) CALCIUM (BEAKER) (test 8.5 mg/dL 8.4-10.2 rsvk=360) EGFR (BEAKER) (test 13 mL/min/1.73 sq m ESTIMATED GFR IS NOT tbps=0434) ACCURATE CREATININE CLEARANCE IN PREDICTING GLOMERULAR FILTRATION RATE. ESTIMATED GFR IS NOT APPLICABLE FOR DIALYSIS PATIENTS. POCT-GLUCOSE [id number] 07:22:00 Test Item Value Reference Range Comments POC-GLUCOSE METER (BEAKER) 128 mg/dL 70-110 TESTED AT [address] (test zjzd=7801) [place] [id number] POCT-GLUCOSE [id number] 04:05:00 Test Item Value Reference Range Comments POC-GLUCOSE METER (BEAKER) 95 mg/dL 70-110 TESTED AT [address] (test mbxg=3205) [place] [address] POCT-GLUCOSE [id number] 04:05:00 Test Item Value Reference Range Comments POC-GLUCOSE METER (BEAKER) 68 mg/dL 70-110 TESTED AT [address] (test rqte=9293) [place] [address] POCT-GLUCOSE [id number] 04:05:00 Test Item Value Reference Range Comments POC-GLUCOSE METER (BEAKER) 52 mg/dL 70-110 TESTED AT [address] (test bhuf=8333) [facility] [address] POCT-GLUCOSE [id number] 22:26:00 Test Item Value Reference Range Comments POC-GLUCOSE METER (BEAKER) 132 mg/dL 70-110 TESTED AT [address] (test mpow=9503) [place] [id number] POCT-GLUCOSE [id number] 19:58:00 Test Item Value Reference Range Comments POC-GLUCOSE METER (BEAKER) 134 mg/dL 70-110 TESTED AT [address] (test bezt=4896) [facility] [address] POCT-GLUCOSE [id number] 13:11:00 Test Item Value Reference Range Comments POC-GLUCOSE METER (BEAKER) 148 mg/dL 70-110 TESTED AT [place] [id number] [facility] (test qbzh=8636) [place] [address] POCT-GLUCOSE [id number] 12:30:00 Test Item Value Reference Range Comments POC-GLUCOSE METER (BEAKER) 183 mg/dL 70-110 TESTED AT [place] [address] [facility] (test vobd=1592) [facility] [address] CBC W/PLT COUNT & AUTO [id number] 10:37:00 Test Item Value Reference Range Comments WHITE BLOOD CELL COUNT (BEAKER) (test fuyk=436) 7.4 K/ L 3.5-10.5 RED BLOOD CELL COUNT (BEAKER) (test fkvf=212) 3.03 M/ L 3.93-5.22 HEMOGLOBIN (BEAKER) (test yvyn=176) 9.5 GM/DL 11.2-15.7 HEMATOCRIT (BEAKER) (test dtjk=715) 31.4 % 34.1-44.9 MEAN CORPUSCULAR VOLUME (BEAKER) (test acmm=532) 103.6 fL 79.4-94.8 MEAN CORPUSCULAR HEMOGLOBIN (BEAKER) (test 31.4 pg 25.6-32.2 mipl=181) MEAN CORPUSCULAR HEMOGLOBIN CONC (BEAKER) (test 30.3 GM/DL 32.2-35.5 znni=802) RED CELL DISTRIBUTION WIDTH (BEAKER) (test 18.8 % 11.7-14.4 falr=717) PLATELET COUNT (BEAKER) (test trnt=488) 205 K/CU MM 150-450 MEAN PLATELET VOLUME (BEAKER) (test syek=055) 9.8 fL 9.4-12.3 NUCLEATED RED BLOOD CELLS (BEAKER) (test 0 /100 WBC 0-0 ljma=194) NEUTROPHILS RELATIVE PERCENT (BEAKER) (test 70 % llad=259) LYMPHOCYTES RELATIVE PERCENT (BEAKER) (test 11 % vfam=353) MONOCYTES RELATIVE PERCENT (BEAKER) (test 15 % exix=379) EOSINOPHILS RELATIVE PERCENT (BEAKER) (test 2 % kbfc=730) BASOPHILS RELATIVE PERCENT (BEAKER) (test 0 % txgj=096) NEUTROPHILS ABSOLUTE COUNT (BEAKER) (test 5.19 K/ L 1.56-6.13 jqff=429) LYMPHOCYTES ABSOLUTE COUNT (BEAKER) (test 0.82 K/ L 1.18-3.74 ussh=507) MONOCYTES ABSOLUTE COUNT (BEAKER) (test 1.13 K/ L 0.24-0.36 alag=649) EOSINOPHILS ABSOLUTE COUNT (BEAKER) (test 0.14 K/ L 0.04-0.36 ydbr=523) BASOPHILS ABSOLUTE COUNT (BEAKER) (test 0.03 K/ L 0.01-0.08 pulh=828) IMMATURE GRANULOCYTES-RELATIVE PERCENT (BEAKER) 1 % 0-1 (test drsu=0550) POCT-GLUCOSE [id number] 08:09:00 Test Item Value Reference Range Comments POC-GLUCOSE METER (BEAKER) 99 mg/dL 70-110 TESTED AT [address] (test nuag=2152) [place] [address] BASIC METABOLIC [id number] 05:41:00 Test Item Value Reference Range Comments SODIUM (BEAKER) (test 136 meq/L 136-145 stml=935) POTASSIUM (BEAKER) (test 4.1 meq/L 3.5-5.1 olxg=390) CHLORIDE (BEAKER) (test 99 meq/L 98-107 bqac=382) CO2 (BEAKER) (test 29 meq/L 22-29 zbwt=857) BLOOD UREA NITROGEN 46 mg/dL 7-21 (BEAKER) (test kzca=485) CREATININE (BEAKER) (test 3.01 mg/dL 0.57-1.25 dtrb=456) GLUCOSE RANDOM (BEAKER) 107 mg/dL 70-105 (test erkg=930) CALCIUM (BEAKER) (test 8.5 mg/dL 8.4-10.2 cxre=743) EGFR (BEAKER) (test 15 mL/min/1.73 sq m ESTIMATED GFR IS NOT sidv=2522) ACCURATE CREATININE CLEARANCE IN PREDICTING GLOMERULAR FILTRATION RATE. ESTIMATED GFR IS NOT APPLICABLE FOR DIALYSIS PATIENTS. POCT-GLUCOSE [id number] 21:42:00 Test Item Value Reference Range Comments POC-GLUCOSE METER (BEAKER) 171 mg/dL 70-110 TESTED AT [address] (test lmkv=7243) [place] [address] POCT-GLUCOSE [id number] 18:03:00 Test Item Value Reference Range Comments POC-GLUCOSE METER (BEAKER) 123 mg/dL 70-110 TESTED AT [place] [id number] [facility] (test abvp=2749) [place] [address] POCT-GLUCOSE [id number] 12:52:00 Test Item Value Reference Range Comments POC-GLUCOSE METER (BEAKER) 167 mg/dL 70-110 TESTED AT [address] (test ullx=4397) [place] [id number] POCT-GLUCOSE [id number] 09:05:00 Test Item Value Reference Range Comments POC-GLUCOSE METER (BEAKER) 128 mg/dL 70-110 TESTED AT [address] (test zpji=9074) [place] [address] CT, PELVIS, WO [id number] 08:42:00FINAL REPORT CT pelvis without contrast HISTORY: [...] MDReport Verified Date/Time: 08/16/2018 08:42:53 Reading Location: [facility] Radiology Reading Room BASIC METABOLIC [id number] 05:58:00 Test Item Value Reference Range Comments SODIUM (BEAKER) (test 137 meq/L 136-145 spmq=995) POTASSIUM (BEAKER) (test 4.2 meq/L 3.5-5.1 uykg=366) CHLORIDE (BEAKER) (test 100 meq/L 98-107 rkqc=229) CO2 (BEAKER) (test 28 meq/L 22-29 ciko=822) BLOOD UREA NITROGEN 48 mg/dL 7-21 (BEAKER) (test ooge=563) CREATININE (BEAKER) (test 2.88 mg/dL 0.57-1.25 vxcm=965) GLUCOSE RANDOM (BEAKER) 115 mg/dL 70-105 (test wdyq=070) CALCIUM (BEAKER) (test 8.7 mg/dL 8.4-10.2 hfcl=334) EGFR (BEAKER) (test 16 mL/min/1.73 sq m ESTIMATED GFR IS NOT enow=2852) ACCURATE CREATININE CLEARANCE IN PREDICTING GLOMERULAR FILTRATION RATE. ESTIMATED GFR IS NOT APPLICABLE FOR DIALYSIS PATIENTS. POCT-GLUCOSE [id number] 03:05:00 Test Item Value Reference Range Comments POC-GLUCOSE METER (BEAKER) 157 mg/dL 70-110 TESTED AT [address] (test erpb=4642) [facility] [address] POCT-GLUCOSE [id number] 20:57:00 Test Item Value Reference Range Comments POC-GLUCOSE METER (BEAKER) 106 mg/dL 70-110 TESTED AT [address] (test spme=3130) [facility] [address] POCT-GLUCOSE [id number] 18:13:00 Test Item Value Reference Range Comments POC-GLUCOSE METER (BEAKER) 237 mg/dL 70-110 TESTED AT [address] (test tneo=0383) [facility] [address] POCT-GLUCOSE [id number] 13:47:00 Test Item Value Reference Range Comments POC-GLUCOSE METER (BEAKER) 172 mg/dL 70-110 TESTED AT [address] (test nfan=7977) [facility] [address] POCT-GLUCOSE [id number] 08:50:00 Test Item Value Reference Range Comments POC-GLUCOSE METER (BEAKER) 155 mg/dL 70-110 TESTED AT [address] (test zndj=7467) [place] [address] BASIC METABOLIC [id number] 06:36:00 Test Item Value Reference Range Comments SODIUM (BEAKER) (test 134 meq/L 136-145 qgbo=530) POTASSIUM (BEAKER) (test 3.6 meq/L 3.5-5.1 hanz=081) CHLORIDE (BEAKER) (test 100 meq/L 98-107 odcs=095) CO2 (BEAKER) (test 26 meq/L 22-29 yuqw=172) BLOOD UREA NITROGEN 47 mg/dL 7-21 (BEAKER) (test luvp=301) CREATININE (BEAKER) (test 3.21 mg/dL 0.57-1.25 herb=651) GLUCOSE RANDOM (BEAKER) 139 mg/dL 70-105 (test viwg=199) CALCIUM (BEAKER) (test 8.3 mg/dL 8.4-10.2 davv=477) EGFR (BEAKER) (test 14 mL/min/1.73 sq m ESTIMATED GFR IS NOT dyrp=2113) ACCURATE CREATININE CLEARANCE IN PREDICTING GLOMERULAR FILTRATION RATE. ESTIMATED GFR IS NOT APPLICABLE FOR DIALYSIS PATIENTS. POCT-GLUCOSE [id number] 22:53:00 Test Item Value Reference Range Comments POC-GLUCOSE METER (BEAKER) 231 mg/dL 70-110 TESTED AT [address] (test udfd=6906) [place] [address] POCT-GLUCOSE [id number] 17:51:00 Test Item Value Reference Range Comments POC-GLUCOSE METER (BEAKER) 169 mg/dL 70-110 TESTED AT [address] (test zpbd=2871) [place] [address] RESPIRATORY PANEL [id number] 15:45:00 Test Item Value Reference Range Comments HUMAN METAPNEUMOVIRUS (BEAKER) (test Not detected Not detected, Equivocal neuc=0026) RHINOVIRUS (BEAKER) (test rhto=5828) Not detected Not detected, Equivocal INFLUENZA A (BEAKER) (test huzw=3215) Not detected Not detected, Equivocal INFLUENZA A (NO SUBTYPE) (test Not detected, Equivocal tnda=9556) INFLUENZA A SUBTYPE H1 (BEAKER) (test Not detected, Equivocal snjk=4059) INFLUENZA A SUBTYPE H3 (BEAKER) (test Not detected, Equivocal ngnt=7195) INFLUENZA A SUBTYPE H1-2009 (BEAKER) Not detected, Equivocal (test kfgp=0269) INFLUENZA B (BEAKER) (test sqsi=8703) Not detected Not detected, Equivocal RESPIRATORY SYNCYTIAL VIRUS (BEAKER) Not detected Not detected, Equivocal (test dnls=0534) PARAINFLUENZA VIRUS 1 (BEAKER) (test Not detected Not detected, Equivocal kjro=3327) PARAINFLUENZA VIRUS 2 (BEAKER) (test Not detected Not detected, Equivocal odoo=1242) PARAINFLUENZA VIRUS 3 (BEAKER) (test Not detected Not detected, Equivocal hxpp=7080) PARAINFLUENZA VIRUS 4 (BEAKER) (test Not detected Not detected, Equivocal crep=6992) ADENOVIRUS (BEAKER) (test focv=0228) Not detected Not detected, Equivocal CORONAVIRUS 229E (BEAKER) (test Not detected Not detected, Equivocal lflh=9831) CORONAVIRUS HKU1 (BEAKER) (test Not detected Not detected, Equivocal hgum=0231) CORONAVIRUS NL63 (BEAKER) (test Not detected Not detected, Equivocal wqlt=1225) CORONAVIRUS OC43 (BEAKER) (test Not detected Not detected, Equivocal xybp=5291) BORDETELLA PERTUSSIS (BEAKER) (test Not detected Not detected, Equivocal zjwl=0839) CHLAMYDOPHILA PNEUMONIAE (BEAKER) (test Not detected Not detected, Equivocal aubc=2982) MYCOPLASMA PNEUMONIAE (BEAKER) (test Not detected Not detected, Equivocal unfk=6325) Other viruses and bacteria not targeted by [...] [facility] Molecular Diagnostics Laboratory using the [employer] Technology[employer] Respiratory Panel. It is FDA cleared and has been verified and approved by the [facility] Molecular Diagnostics Laboratory for clinical use on nasopharyngeal swab specimens.The performance of the FilmArrayRP has not been established in individuals who received influenza vaccine. Recent administration ofa nasal influenza vaccine may cause false positive results for Influenza A and/orInfluenza B.URINALYSIS W/ REFLEX URINE [id number] 12:32 :00 Test Item Value Reference Range Comments COLOR (BEAKER) (test hlrd=555) Light Yellow CLARITY (BEAKER) (test pznr=237) Hazy SPECIFIC GRAVITY UA (BEAKER) (test ogyr=241) 1.009 1.001-1.035 PH UA (BEAKER) (test allm=469) 6.0 5.0-8.0 PROTEIN UA (BEAKER) (test htac=342) 30 mg/dL Negative GLUCOSE UA (BEAKER) (test umrh=377) Negative Negative KETONES UA (BEAKER) (test zafm=733) Negative Negative BILIRUBIN UA (BEAKER) (test dnxy=007) Negative Negative BLOOD UA (BEAKER) (test hwcx=630) Small Negative NITRITE UA (BEAKER) (test nowl=591) Negative Negative LEUKOCYTE ESTERASE UA (BEAKER) (test qvhy=816) Large Negative UROBILINOGEN UA (BEAKER) (test sgfr=714) 0.2 mg/dL 0.2-1.0 RBC UA (BEAKER) (test efyy=726) 0 /HPF WBC UA (BEAKER) (test hzrr=598) > /HPF BACTERIA (BEAKER) (test eqdg=071) Many SQUAMOUS EPITHELIAL (BEAKER) (test avin=514) < /HPF RENAL EPITHELIAL (BEAKER) (test pwpb=0644) 15 /HPF WBC CASTS (BEAKER) (test azth=7134) 14 /LPF SOURCE(BEAKER) (test xjpd=3391) POCT-GLUCOSE [id number] 12:29:00 Test Item Value Reference Range Comments POC-GLUCOSE METER (BEAKER) 222 mg/dL 70-110 TESTED AT [place] [id number] [facility] (test jtme=7144) [facility] [address] CBC W/PLT COUNT & AUTO [id number] 10:12:00 Test Item Value Reference Range Comments WHITE BLOOD CELL COUNT (BEAKER) (test bfhb=773) 11.6 K/ L 3.5-10.5 RED BLOOD CELL COUNT (BEAKER) (test tmhz=363) 2.77 M/ L 3.93-5.22 HEMOGLOBIN (BEAKER) (test tasw=119) 8.7 GM/DL 11.2-15.7 HEMATOCRIT (BEAKER) (test tbtx=857) 27.2 % 34.1-44.9 MEAN CORPUSCULAR VOLUME (BEAKER) (test sjdq=819) 98.2 fL 79.4-94.8 MEAN CORPUSCULAR HEMOGLOBIN (BEAKER) (test 31.4 pg 25.6-32.2 cuiv=389) MEAN CORPUSCULAR HEMOGLOBIN CONC (BEAKER) (test 32.0 GM/DL 32.2-35.5 aufd=981) RED CELL DISTRIBUTION WIDTH (BEAKER) (test 17.4 % 11.7-14.4 nxot=255) PLATELET COUNT (BEAKER) (test cvxj=679) 209 K/CU MM 150-450 MEAN PLATELET VOLUME (BEAKER) (test zosb=642) 10.2 fL 9.4-12.3 NUCLEATED RED BLOOD CELLS (BEAKER) (test 1 /100 WBC 0-0 ocyx=448) (CELLAVISION MANUAL DIFF)2018-08-14 10:12:00 Test Item Value Reference Range Comments NEUTROPHILS - REL (CELLAVISION)(BEAKER) (test 86 % okwf=8336) LYMPHOCYTES - REL (CELLAVISION)(BEAKER) (test 4 % zotz=3336) MONOCYTES - REL (CELLAVISION)(BEAKER) (test 5 % rnmt=0988) EOSINOPHILS - REL (CELLAVISION)(BEAKER) (test 2 % rplj=3375) METAMYELOCYTES - REL (CELLAVISION)(BEAKER) (test 2 % 0-0 utkb=3810) MYELOCYTES - REL (CELLAVISION)(BEAKER) (test 1 % 0-0 irxo=8760) NEUTROPHILS - ABS (CELLAVISION)(BEAKER) (test 9.98 K/ul 1.56-6.13 nrfn=0320) LYMPHOCYTES - ABS (CELLAVISION)(BEAKER) (test 0.46 K/ul 1.18-3.74 gckf=9244) MONOCYTES - ABS (CELLAVISION)(BEAKER) (test 0.58 K/uL 0.24-0.36 gqzc=5975) EOSINOPHILS - ABS (CELLAVISION)(BEAKER) (test 0.23 K/uL 0.04-0.36 dnis=6960) METAMYELOCYTES - ABS (CELLAVISION)(BEAKER) (test 0.23 K/uL 0.00-0.00 cnwl=0969) MYELOCYTES-ABS (CELLAVISION)(BEAKER) (test 0.12 K/uL 0.00-0.00 pdbs=7373) TOTAL COUNTED (BEAKER) (test usvm=7004) 100 MANUAL NRBC PER 100 CELLS (BEAKER) (test 1 /100 WBC 0-0 kdgv=2754) WBC MORPHOLOGY (BEAKER) (test avsa=781) Normal PLT MORPHOLOGY (BEAKER) (test bolk=093) Normal POLYCHROMATOPHILLIC RBCS(BEAKER) (test zdtc=188) 1+ few HYPOCHROMIA (BEAKER) (test ijiz=089) 1+ few ARTIFACT (CELLAVISION)(BEAKER) (test gfiv=1366) Present PLATELET CONCENTRATION (CELLAVISION)(BEAKER) Adequate (test bnsi=3503) Received comment: User comments: Slide comments:RAD, CHEST, 1 VIEW, NON [id number] 09:50:00Reason for exam:->coughShould this be performed at [...] Verified Date/Time: 08/14/2018 09:50:21 Reading Location : [facility] Reading Room POCT-GLUCOSE [id number] 08:20:00 Test Item Value Reference Range Comments POC-GLUCOSE METER (BEAKER) 126 mg/dL 70-[address] [facility] [address] [facility] (test ampp=4624) [facility] [address] COMPREHENSIVE METABOLIC [id number] 07:13:00 Test Item Value Reference Range Comments TOTAL PROTEIN (BEAKER) 5.5 gm/dL 6.0-8.3 (test zzwo=219) ALBUMIN (BEAKER) (test 3.1 g/dL 3.5-5.0 ssex=7638) ALKALINE PHOSPHATASE 67 U/L 40-150 (BEAKER) (test qxxq=296) BILIRUBIN TOTAL (BEAKER) 0.6 mg/dL 0.2-1.2 (test ezix=569) SODIUM (BEAKER) (test 135 meq/L 136-145 pnpv=930) POTASSIUM (BEAKER) (test 3.8 meq/L 3.5-5.1 txgo=029) CHLORIDE (BEAKER) (test 99 meq/L 98-107 kxkj=654) CO2 (BEAKER) (test 27 meq/L 22-29 nslf=691) BLOOD UREA NITROGEN 45 mg/dL 7-21 (BEAKER) (test grwf=572) CREATININE (BEAKER) (test 3.56 mg/dL 0.57-1.25 oixd=343) GLUCOSE RANDOM (BEAKER) 116 mg/dL 70-105 (test jisu=880) CALCIUM (BEAKER) (test 8.5 mg/dL 8.4-10.2 qxpx=577) AST (SGOT) (BEAKER) (test 30 U/L 5-34 hxoq=662) ALT (SGPT) (BEAKER) (test 18 U/L 6-55 segc=643) EGFR (BEAKER) (test 12 mL/min/1.73 sq m ESTIMATED GFR IS NOT weoi=9776) ACCURATE CREATININE CLEARANCE IN PREDICTING GLOMERULAR FILTRATION RATE. ESTIMATED GFR IS NOT APPLICABLE FOR DIALYSIS PATIENTS. [id number] 06:59:00 Test Item Value Reference Range Comments PHOSPHORUS (BEAKER) (test vyaq=862) 2.3 mg/dL 2.3-4.7 [id number] 06:59:00 Test Item Value Reference Range Comments MAGNESIUM (BEAKER) (test bbrx=002) 2.0 mg/dL 1.6-2.6 CALCIUM, [id number] 06:47:00 Test Item Value Reference Range Comments CALCIUM IONIZED (BEAKER) (test rqwr=420) 1.04 mmol/L 1.12-1.27 PH, BLOOD (BEAKER) (test uhqg=9386) 7.38 POCT-GLUCOSE [id number] 23:29:00 Test Item Value Reference Range Comments POC-GLUCOSE METER (BEAKER) 196 mg/dL 70-110 TESTED AT [address] (test afcu=7449) [facility] [address] POCT-GLUCOSE [id number] 17:42:00 Test Item Value Reference Range Comments POC-GLUCOSE METER (BEAKER) 179 mg/dL 70-110 TESTED AT [address] (test toxj=4498) [facility] [address] POCT-GLUCOSE [id number] 12:19:00 Test Item Value Reference Range Comments POC-GLUCOSE METER (BEAKER) 189 mg/dL 70-110 TESTED AT [address] (test sdly=5970) [facility] [address] POCT-GLUCOSE [id number] 08:34:00 Test Item Value Reference Range Comments POC-GLUCOSE METER (BEAKER) 119 mg/dL 70-110 TESTED AT [address] (test vaaf=8359) [facility] [address] COMPREHENSIVE METABOLIC [id number] 02:54:00 Test Item Value Reference Range Comments TOTAL PROTEIN (BEAKER) 5.8 gm/dL 6.0-8.3 (test zgjm=667) ALBUMIN (BEAKER) (test 3.2 g/dL 3.5-5.0 clvt=4155) ALKALINE PHOSPHATASE 65 U/L 40-150 (BEAKER) (test tpmz=220) BILIRUBIN TOTAL (BEAKER) 0.8 mg/dL 0.2-1.2 (test woit=549) SODIUM (BEAKER) (test 134 meq/L 136-145 dygk=874) POTASSIUM (BEAKER) (test 3.6 meq/L 3.5-5.1 dzyy=845) CHLORIDE (BEAKER) (test 100 meq/L 98-107 cyuw=490) CO2 (BEAKER) (test 25 meq/L 22-29 cheu=365) BLOOD UREA NITROGEN 43 mg/dL 7-21 (BEAKER) (test aslc=028) CREATININE (BEAKER) (test 3.41 mg/dL 0.57-1.25 qhgi=818) GLUCOSE RANDOM (BEAKER) 90 mg/dL 70-105 (test xaxi=406) CALCIUM (BEAKER) (test 8.4 mg/dL 8.4-10.2 xnby=667) AST (SGOT) (BEAKER) (test 25 U/L 5-34 noui=825) ALT (SGPT) (BEAKER) (test 16 U/L 6-55 ziqm=052) EGFR (BEAKER) (test 13 mL/min/1.73 sq m ESTIMATED GFR IS NOT jmkq=9640) ACCURATE CREATININE CLEARANCE IN PREDICTING GLOMERULAR FILTRATION RATE. ESTIMATED GFR IS NOT APPLICABLE FOR DIALYSIS PATIENTS. [id number] 02:48:00 Test Item Value Reference Range Comments PHOSPHORUS (BEAKER) (test bccr=122) 2.2 mg/dL 2.3-4.7 [id number] 02:48:00 Test Item Value Reference Range Comments MAGNESIUM (BEAKER) (test xthh=239) 1.5 mg/dL 1.6-2.6 CALCIUM, [id number] 02:32:00 Test Item Value Reference Range Comments CALCIUM IONIZED (BEAKER) (test jxvu=493) 0.93 mmol/L 1.12-1.27 PH, BLOOD (BEAKER) (test hgsg=1374) 7.53 CBC W/PLT COUNT & AUTO [id number] 02:31:00 Test Item Value Reference Range Comments WHITE BLOOD CELL COUNT (BEAKER) (test yaof=349) 12.6 K/ L 3.5-10.5 RED BLOOD CELL COUNT (BEAKER) (test vxzs=647) 2.95 M/ L 3.93-5.22 HEMOGLOBIN (BEAKER) (test kvbt=338) 9.3 GM/DL 11.2-15.7 HEMATOCRIT (BEAKER) (test yahf=426) 29.5 % 34.1-44.9 MEAN CORPUSCULAR VOLUME (BEAKER) (test dvnf=392) 100.0 fL 79.4-94.8 MEAN CORPUSCULAR HEMOGLOBIN (BEAKER) (test 31.5 pg 25.6-32.2 uttv=579) MEAN CORPUSCULAR HEMOGLOBIN CONC (BEAKER) (test 31.5 GM/DL 32.2-35.5 fden=125) RED CELL DISTRIBUTION WIDTH (BEAKER) (test 17.2 % 11.7-14.4 sbni=386) PLATELET COUNT (BEAKER) (test jtoy=046) 198 K/CU MM 150-450 MEAN PLATELET VOLUME (BEAKER) (test xnhx=081) 9.9 fL 9.4-12.3 NUCLEATED RED BLOOD CELLS (BEAKER) (test 2 /100 WBC 0-0 nowe=698) NEUTROPHILS RELATIVE PERCENT (BEAKER) (test 72 % xjkj=454) LYMPHOCYTES RELATIVE PERCENT (BEAKER) (test 12 % hiwf=337) MONOCYTES RELATIVE PERCENT (BEAKER) (test 12 % qyqs=860) EOSINOPHILS RELATIVE PERCENT (BEAKER) (test 1 % oklm=602) BASOPHILS RELATIVE PERCENT (BEAKER) (test 0 % zbic=784) NEUTROPHILS ABSOLUTE COUNT (BEAKER) (test 9.10 K/ L 1.56-6.13 sinj=715) LYMPHOCYTES ABSOLUTE COUNT (BEAKER) (test 1.47 K/ L 1.18-3.74 vpsr=095) MONOCYTES ABSOLUTE COUNT (BEAKER) (test 1.48 K/ L 0.24-0.36 ilqg=576) EOSINOPHILS ABSOLUTE COUNT (BEAKER) (test 0.18 K/ L 0.04-0.36 wazo=345) BASOPHILS ABSOLUTE COUNT (BEAKER) (test 0.04 K/ L 0.01-0.08 temg=922) IMMATURE GRANULOCYTES-RELATIVE PERCENT (BEAKER) 3 % 0-1 (test rtam=1320) POCT-GLUCOSE [id number] 02:17:00 Test Item Value Reference Range Comments POC-GLUCOSE METER (BEAKER) 97 mg/dL 70-110 TESTED AT [address] (test cfxi=3479) [facility] [address] POCT-GLUCOSE [id number] 21:04:00 Test Item Value Reference Range Comments POC-GLUCOSE METER (BEAKER) 147 mg/dL 70-110 TESTED AT [address] (test nijj=6853) [facility] [address] POCT-GLUCOSE [id number] 17:42:00 Test Item Value Reference Range Comments POC-GLUCOSE METER (BEAKER) 172 mg/dL 70-110 TESTED AT [address] (test zrgz=8528) [facility] [address] POCT-GLUCOSE [id number] 12:05:00 Test Item Value Reference Range Comments POC-GLUCOSE METER (BEAKER) 124 mg/dL 70-110 TESTED AT [address] (test stor=7617) [facility] [address] POCT-GLUCOSE [id number] 07:37:00 Test Item Value Reference Range Comments POC-GLUCOSE METER (BEAKER) 94 mg/dL 70-110 TESTED AT [address] (test xaki=8264) [facility] [address] RAD, CHEST, 1 VIEW, NON [id number] 04:50:00Reason for exam:->SOBShould this be performed at [...] Verified Date/Time: 08/12/2018 04:50: 01 Reading Location: [address] Reading Room POCT-GLUCOSE [id number] 04:39:00 Test Item Value Reference Range Comments POC-GLUCOSE METER (BEAKER) 107 mg/dL 70-110 TESTED AT [address] (test qoqf=6896) [facility] [address] COMPREHENSIVE METABOLIC [id number] 04:16:00 Test Item Value Reference Range Comments TOTAL PROTEIN (BEAKER) 5.6 gm/dL 6.0-8.3 (test qjem=315) ALBUMIN (BEAKER) (test 3.2 g/dL 3.5-5.0 zzdw=7164) ALKALINE PHOSPHATASE 66 U/L 40-150 (BEAKER) (test rsda=039) BILIRUBIN TOTAL (BEAKER) 0.6 mg/dL 0.2-1.2 (test fsfg=683) SODIUM (BEAKER) (test 136 meq/L 136-145 drqk=282) POTASSIUM (BEAKER) (test 4.0 meq/L 3.5-5.1 kmsj=048) CHLORIDE (BEAKER) (test 102 meq/L 98-107 tlop=955) CO2 (BEAKER) (test 25 meq/L 22-29 utin=179) BLOOD UREA NITROGEN 38 mg/dL 7-21 (BEAKER) (test lcit=548) CREATININE (BEAKER) (test 3.33 mg/dL 0.57-1.25 yeme=032) GLUCOSE RANDOM (BEAKER) 105 mg/dL 70-105 (test wzdn=653) CALCIUM (BEAKER) (test 8.6 mg/dL 8.4-10.2 qwto=872) AST (SGOT) (BEAKER) (test 25 U/L 5-34 zjao=906) ALT (SGPT) (BEAKER) (test 16 U/L 6-55 lymh=073) EGFR (BEAKER) (test 13 mL/min/1.73 sq m ESTIMATED GFR IS NOT htgu=2572) ACCURATE CREATININE CLEARANCE IN PREDICTING GLOMERULAR FILTRATION RATE. ESTIMATED GFR IS NOT APPLICABLE FOR DIALYSIS PATIENTS. [id number] 04:11:00 Test Item Value Reference Range Comments PHOSPHORUS (BEAKER) (test xhes=457) 2.9 mg/dL 2.3-4.7 [id number] 04:11:00 Test Item Value Reference Range Comments MAGNESIUM (BEAKER) (test tnol=059) 1.9 mg/dL 1.6-2.6 CBC W/PLT COUNT & AUTO [id number] 03:57:00 Test Item Value Reference Range Comments WHITE BLOOD CELL COUNT (BEAKER) (test sowr=837) 12.6 K/ L 3.5-10.5 RED BLOOD CELL COUNT (BEAKER) (test mpaz=154) 2.87 M/ L 3.93-5.22 HEMOGLOBIN (BEAKER) (test bqlh=031) 9.0 GM/DL 11.2-15.7 HEMATOCRIT (BEAKER) (test jhew=985) 28.6 % 34.1-44.9 MEAN CORPUSCULAR VOLUME (BEAKER) (test xdbv=213) 99.7 fL 79.4-94.8 MEAN CORPUSCULAR HEMOGLOBIN (BEAKER) (test 31.4 pg 25.6-32.2 ljvk=710) MEAN CORPUSCULAR HEMOGLOBIN CONC (BEAKER) (test 31.5 GM/DL 32.2-35.5 kmlc=684) RED CELL DISTRIBUTION WIDTH (BEAKER) (test 16.1 % 11.7-14.4 ztbs=806) PLATELET COUNT (BEAKER) (test ecku=193) 204 K/CU MM 150-450 MEAN PLATELET VOLUME (BEAKER) (test abrt=336) 10.5 fL 9.4-12.3 NUCLEATED RED BLOOD CELLS (BEAKER) (test 5 /100 WBC 0-0 zszu=791) NEUTROPHILS RELATIVE PERCENT (BEAKER) (test 77 % cckh=369) LYMPHOCYTES RELATIVE PERCENT (BEAKER) (test 9 % yacu=796) MONOCYTES RELATIVE PERCENT (BEAKER) (test 11 % qqut=825) EOSINOPHILS RELATIVE PERCENT (BEAKER) (test 2 % gbci=268) BASOPHILS RELATIVE PERCENT (BEAKER) (test 0 % cory=819) NEUTROPHILS ABSOLUTE COUNT (BEAKER) (test 9.64 K/ L 1.56-6.13 gidn=503) LYMPHOCYTES ABSOLUTE COUNT (BEAKER) (test 1.07 K/ L 1.18-3.74 furg=867) MONOCYTES ABSOLUTE COUNT (BEAKER) (test 1.34 K/ L 0.24-0.36 gggv=452) EOSINOPHILS ABSOLUTE COUNT (BEAKER) (test 0.19 K/ L 0.04-0.36 cbuu=374) BASOPHILS ABSOLUTE COUNT (BEAKER) (test 0.03 K/ L 0.01-0.08 digo=461) IMMATURE GRANULOCYTES-RELATIVE PERCENT (BEAKER) 2 % 0-1 (test bzxq=1693) CALCIUM, [id number] 03:25:00 Test Item Value Reference Range Comments CALCIUM IONIZED (BEAKER) (test idfy=076) 1.10 mmol/L 1.12-1.27 PH, BLOOD (BEAKER) (test dulq=4491) 7.43 POCT-GLUCOSE [id number] 00:03:00 Test Item Value Reference Range Comments POC-GLUCOSE METER (BEAKER) 122 mg/dL 70-110 TESTED AT [address] (test zhnd=8053) [place] [id number] POCT-GLUCOSE [id number] 21:32:00 Test Item Value Reference Range Comments POC-GLUCOSE METER (BEAKER) 104 mg/dL 70-110 TESTED AT [address] (test yvem=5416) [place] [id number] POCT-GLUCOSE [id number] 17:51:00 Test Item Value Reference Range Comments POC-GLUCOSE METER (BEAKER) 151 mg/dL 70-110 TESTED AT [address] (test subh=7526) [place] [id number] BASIC METABOLIC [id number] 16:24:00 Test Item Value Reference Range Comments SODIUM (BEAKER) (test 133 meq/L 136-145 cwxh=887) POTASSIUM (BEAKER) (test 4.1 meq/L 3.5-5.1 Specimen slightly ceqp=893) hemolyzed CHLORIDE (BEAKER) (test 101 meq/L 98-107 grgs=642) CO2 (BEAKER) (test 26 meq/L 22-29 sbzg=896) BLOOD UREA NITROGEN 34 mg/dL 7-21 (BEAKER) (test dahk=212) CREATININE (BEAKER) (test 3.12 mg/dL 0.57-1.25 Specimen slightly oudc=998) hemolyzed GLUCOSE RANDOM (BEAKER) 167 mg/dL 70-105 (test thjs=967) CALCIUM (BEAKER) (test 8.4 mg/dL 8.4-10.2 kord=996) EGFR (BEAKER) (test 14 mL/min/1.73 sq m ESTIMATED GFR IS NOT qhpx=5347) ACCURATE CREATININE CLEARANCE IN PREDICTING GLOMERULAR FILTRATION RATE. ESTIMATED GFR IS NOT APPLICABLE FOR DIALYSIS PATIENTS. [id number] 16:22:00 Test Item Value Reference Range Comments MAGNESIUM (BEAKER) (test 1.8 mg/dL 1.6-2.6 Specimen slightly hemolyzed frup=427) POCT-GLUCOSE [id number] 11:45:00 Test Item Value Reference Range Comments POC-GLUCOSE METER (BEAKER) 141 mg/dL 70-110 TESTED AT [address] (test gggg=2239) [place] [address] POCT-GLUCOSE [id number] 07:51:00 Test Item Value Reference Range Comments POC-GLUCOSE METER (BEAKER) 112 mg/dL 70-110 TESTED AT [place] [id number] [facility] (test rtit=9635) [place] [id number] BASIC METABOLIC [id number] 05:18:00 Test Item Value Reference Range Comments SODIUM (BEAKER) (test 135 meq/L 136-145 qwgc=007) POTASSIUM (BEAKER) (test 4.7 meq/L 3.5-5.1 Specimen moderately pceb=871) hemolyzed CHLORIDE (BEAKER) (test 103 meq/L 98-107 vbsg=443) CO2 (BEAKER) (test 24 meq/L 22-29 auml=235) BLOOD UREA NITROGEN 26 mg/dL 7-21 (BEAKER) (test hunk=665) CREATININE (BEAKER) (test 2.47 mg/dL 0.57-1.25 Specimen moderately fmpv=168) hemolyzed GLUCOSE RANDOM (BEAKER) 101 mg/dL 70-105 (test cfhp=134) CALCIUM (BEAKER) (test 8.8 mg/dL 8.4-10.2 rcxn=700) EGFR (BEAKER) (test 19 mL/min/1.73 sq m ESTIMATED GFR IS NOT lcrv=1227) ACCURATE CREATININE CLEARANCE IN PREDICTING GLOMERULAR FILTRATION RATE. ESTIMATED GFR IS NOT APPLICABLE FOR DIALYSIS PATIENTS. [id number] 05:12:00 Test Item Value Reference Range Comments MAGNESIUM (BEAKER) (test 2.0 mg/dL 1.6-2.6 Specimen moderately hemolyzed mbnj=561) CBC W/PLT COUNT & AUTO [id number] 04:19:00 Test Item Value Reference Range Comments WHITE BLOOD CELL COUNT (BEAKER) (test wpkl=936) 14.3 K/ L 3.5-10.5 RED BLOOD CELL COUNT (BEAKER) (test lzfa=201) 3.03 M/ L 3.93-5.22 HEMOGLOBIN (BEAKER) (test cnad=126) 9.4 GM/DL 11.2-15.7 HEMATOCRIT (BEAKER) (test qgyg=826) 29.2 % 34.1-44.9 MEAN CORPUSCULAR VOLUME (BEAKER) (test pmam=642) 96.4 fL 79.4-94.8 MEAN CORPUSCULAR HEMOGLOBIN (BEAKER) (test 31.0 pg 25.6-32.2 wzcp=781) MEAN CORPUSCULAR HEMOGLOBIN CONC (BEAKER) (test 32.2 GM/DL 32.2-35.5 buzi=944) RED CELL DISTRIBUTION WIDTH (BEAKER) (test 15.5 % 11.7-14.4 paxf=204) PLATELET COUNT (BEAKER) (test qiss=170) 209 K/CU MM 150-450 MEAN PLATELET VOLUME (BEAKER) (test erhp=016) 10.4 fL 9.4-12.3 NUCLEATED RED BLOOD CELLS (BEAKER) (test 4 /100 WBC 0-0 eyam=515) NEUTROPHILS RELATIVE PERCENT (BEAKER) (test 80 % rfmi=932) LYMPHOCYTES RELATIVE PERCENT (BEAKER) (test 6 % xxah=750) MONOCYTES RELATIVE PERCENT (BEAKER) (test 11 % hwcc=020) EOSINOPHILS RELATIVE PERCENT (BEAKER) (test 1 % sycd=274) BASOPHILS RELATIVE PERCENT (BEAKER) (test 0 % qigd=451) NEUTROPHILS ABSOLUTE COUNT (BEAKER) (test 11.46 K/ L 1.56-6.13 anre=858) LYMPHOCYTES ABSOLUTE COUNT (BEAKER) (test 0.80 K/ L 1.18-3.74 snva=644) MONOCYTES ABSOLUTE COUNT (BEAKER) (test 1.60 K/ L 0.24-0.36 kiox=254) EOSINOPHILS ABSOLUTE COUNT (BEAKER) (test 0.07 K/ L 0.04-0.36 skpd=467) BASOPHILS ABSOLUTE COUNT (BEAKER) (test 0.03 K/ L 0.01-0.08 iswg=066) IMMATURE GRANULOCYTES-RELATIVE PERCENT (BEAKER) 3 % 0-1 (test xlyv=1011) RAD, CHEST, 1 VIEW, NON [id number] 03:48:00Reason for exam:->SOBShould this be performed at the bedside?->YesFINAL REPORT RAD , CHEST, 1 VIEW, NON DEPT INDICATION: SOB COMPARISON: Prior day's exam FINDINGS : Portable frontal view of the chest. IMPRESSION: Support Lines: Stable. Lungs and pleura: Unchanged airspace and pleural opacities. No pneumothorax.Heart and mediastinum: Stable contours. Additional findings: None. Signed: Desire [facility] Verified Date/Time: 08/11/2018 03:48:09 POCT -GLUCOSE [id number] 23:26:00 Test Item Value Reference Range Comments POC-GLUCOSE METER (BEAKER) 101 mg/dL 70-[address] [facility] [address] [facility] (test ivma=6776) [facility] [address] POCT-GLUCOSE [id number] 18:11:00 Test Item Value Reference Range Comments POC-GLUCOSE METER (BEAKER) 171 mg/dL 70-110 TESTED AT [address] (test ruuq=0416) [facility] [address] BASIC METABOLIC [id number] 16:14:00 Test Item Value Reference Range Comments SODIUM (BEAKER) (test 134 meq/L 136-145 kpja=317) POTASSIUM (BEAKER) (test 4.6 meq/L 3.5-5.1 srzr=679) CHLORIDE (BEAKER) (test 102 meq/L 98-107 gevx=961) CO2 (BEAKER) (test 25 meq/L 22-29 lemf=584) BLOOD UREA NITROGEN 51 mg/dL 7-21 (BEAKER) (test prtv=329) CREATININE (BEAKER) (test 3.89 mg/dL 0.57-1.25 rwyc=766) GLUCOSE RANDOM (BEAKER) 182 mg/dL 70-105 (test wrkp=511) CALCIUM (BEAKER) (test 8.2 mg/dL 8.4-10.2 ifht=418) EGFR (BEAKER) (test 11 mL/min/1.73 sq m ESTIMATED GFR IS NOT gqjc=6578) ACCURATE CREATININE CLEARANCE IN PREDICTING GLOMERULAR FILTRATION RATE. ESTIMATED GFR IS NOT APPLICABLE FOR DIALYSIS PATIENTS. [id number] 16:07:00 Test Item Value Reference Range Comments MAGNESIUM (BEAKER) (test jfwy=942) 2.0 mg/dL 1.6-2.6 LACTIC ACID, [id number] 15:23:00 Test Item Value Reference Range Comments LACTATE BLOOD ARTERIAL (2) (BEAKER) (test 0.9 mmol/L 0.5-2.2 srii=9456) RAD, CHEST, 1 VIEW, NON [id number] 15:07:00Reason for exam:-> hypoxemiaShould this be performed [...] MDReport Verified Date/Time: 08/10/2018 15:07:53 Reading Location: [facility] B1 C013W Consult Reading Room 03: 07 PMBLOOD GAS, [id number] 14:53:00 Test Item Value Reference Range Comments PH ARTERIAL (BEAKER) (test yffr=249) 7.44 7.35-7.45 PCO2 ARTERIAL (BEAKER) (test qnrm=979) 38 mmHg 35-45 PO2 ARTERIAL (BEAKER) (test xfzn=277) 165 mmHg 80-90 O2 SATURATION ARTERIAL (BEAKER) (test imeh=280) 99.2 % 96.0-97.0 HCO3 ARTERIAL (BEAKER) (test pumi=410) 26 mmol/L 21-29 BASE EXCESS ARTERIAL (BEAKER) (test nlwi=257) 1.1 mmol/L -2.0-3.0 PATIENT TEMPERATURE (BEAKER) (test nezk=7767) 36.4 C FIO2 (BEAKER) (test tiqo=2923) 44.0 % POCT-GLUCOSE [id number] 12:20:00 Test Item Value Reference Range Comments POC-GLUCOSE METER (BEAKER) 208 mg/dL 70-110 TESTED AT [address] (test dpuk=6764) [facility] [address] CBC W/PLT COUNT & AUTO [id number] 08:56:00 Test Item Value Reference Range Comments WHITE BLOOD CELL COUNT (BEAKER) (test awqi=447) 12.2 K/ L 3.5-10.5 RED BLOOD CELL COUNT (BEAKER) (test okpl=034) 2.87 M/ L 3.93-5.22 HEMOGLOBIN (BEAKER) (test jbrh=743) 8.8 GM/DL 11.2-15.7 HEMATOCRIT (BEAKER) (test aszg=156) 27.4 % 34.1-44.9 MEAN CORPUSCULAR VOLUME (BEAKER) (test mibq=965) 95.5 fL 79.4-94.8 MEAN CORPUSCULAR HEMOGLOBIN (BEAKER) (test 30.7 pg 25.6-32.2 pdpt=050) MEAN CORPUSCULAR HEMOGLOBIN CONC (BEAKER) (test 32.1 GM/DL 32.2-35.5 xlws=241) RED CELL DISTRIBUTION WIDTH (BEAKER) (test 15.1 % 11.7-14.4 muyv=105) PLATELET COUNT (BEAKER) (test qjxq=677) 224 K/CU MM 150-450 MEAN PLATELET VOLUME (BEAKER) (test thvk=675) 9.8 fL 9.4-12.3 NUCLEATED RED BLOOD CELLS (BEAKER) (test 1 /100 WBC 0-0 qwju=949) (CELLAVISION MANUAL DIFF)2018-08-10 08:56:00 Test Item Value Reference Range Comments NEUTROPHILS - REL (CELLAVISION)(BEAKER) (test 80 % jpyy=4902) LYMPHOCYTES - REL (CELLAVISION)(BEAKER) (test 7 % vuwm=6575) MONOCYTES - REL (CELLAVISION)(BEAKER) (test 10 % pszw=3070) EOSINOPHILS - REL (CELLAVISION)(BEAKER) (test 2 % ccag=5290) NEUTROPHILS - ABS (CELLAVISION)(BEAKER) (test 9.76 K/ul 1.56-6.13 ldml=2551) LYMPHOCYTES - ABS (CELLAVISION)(BEAKER) (test 0.85 K/ul 1.18-3.74 eivl=5887) MONOCYTES - ABS (CELLAVISION)(BEAKER) (test 1.22 K/uL 0.24-0.36 idfy=7791) EOSINOPHILS - ABS (CELLAVISION)(BEAKER) (test 0.24 K/uL 0.04-0.36 yeqt=8056) TOTAL COUNTED (BEAKER) (test dbef=0243) 100 MANUAL NRBC PER 100 CELLS (BEAKER) (test 2 /100 WBC 0-0 akmb=2673) PLT MORPHOLOGY (BEAKER) (test fulv=143) Normal TOXIC GRANULATION (BEAKER) (test rdbf=191) Present POLYCHROMATOPHILLIC RBCS(BEAKER) (test vdgx=247) 1+ few ARTIFACT (CELLAVISION)(BEAKER) (test vnlr=4897) Present PLATELET CONCENTRATION (CELLAVISION)(BEAKER) Adequate (test wbfx=2704) Received comment: User comments: Slide comments:ALEX CHEST, 1 VIEW, NON [id number] 08:03:00Reason for exam:->SOBShould this be performed [...] Navarro MDReport Verified Date/Time: 08:03:28 Reading Location: [facility] Reading Room POCT- GLUCOSE [id number] 07:51:00 Test Item Value Reference Range Comments POC-GLUCOSE METER (BEAKER) 129 mg/dL 70-110 TESTED AT [address] (test dptr=1269) [facility] [address] POCT-GLUCOSE [id number] 06:38:00 Test Item Value Reference Range Comments POC-GLUCOSE METER (BEAKER) 193 mg/dL 70-110 TESTED AT [address] (test dvha=6403) [facility] [address] POCT-GLUCOSE [id number] 05:48:00 Test Item Value Reference Range Comments POC-GLUCOSE METER (BEAKER) 67 mg/dL 70-110 TESTED AT [address] (test oijl=8283) [facility] [address] BASIC METABOLIC [id number] 05:07:00 Test Item Value Reference Range Comments SODIUM (BEAKER) (test 137 meq/L 136-145 gdtv=875) POTASSIUM (BEAKER) (test 4.1 meq/L 3.5-5.1 Specimen slightly ngcb=779) hemolyzed CHLORIDE (BEAKER) (test 103 meq/L 98-107 icow=500) CO2 (BEAKER) (test 26 meq/L 22-29 pxot=700) BLOOD UREA NITROGEN 45 mg/dL 7-21 (BEAKER) (test gknp=425) CREATININE (BEAKER) (test 2.97 mg/dL 0.57-1.25 Specimen slightly tmad=635) hemolyzed GLUCOSE RANDOM (BEAKER) 66 mg/dL 70-105 (test acro=786) CALCIUM (BEAKER) (test 9.1 mg/dL 8.4-10.2 szum=904) EGFR (BEAKER) (test 15 mL/min/1.73 sq m ESTIMATED GFR IS NOT asft=8188) ACCURATE CREATININE CLEARANCE IN PREDICTING GLOMERULAR FILTRATION RATE. ESTIMATED GFR IS NOT APPLICABLE FOR DIALYSIS PATIENTS. [id number] 05:06:00 Test Item Value Reference Range Comments MAGNESIUM (BEAKER) (test 2.0 mg/dL 1.6-2.6 Specimen slightly hemolyzed hmbt=820) POCT-GLUCOSE [id number] 20:02:00 Test Item Value Reference Range Comments POC-GLUCOSE METER (BEAKER) 95 mg/dL 70-110 TESTED AT [address] (test jxbw=8437) [place] [address] POCT-GLUCOSE [id number] 17:35:00 Test Item Value Reference Range Comments POC-GLUCOSE METER (BEAKER) 144 mg/dL 70-110 TESTED AT [address] (test wlpe=3553) [place] [address] POCT-GLUCOSE [id number] 13:42:00 Test Item Value Reference Range Comments POC-GLUCOSE METER (BEAKER) 180 mg/dL 70-110 TESTED AT [address] (test gnao=0571) [place] [address] POCT-GLUCOSE [id number] 07:56:00 Test Item Value Reference Range Comments POC-GLUCOSE METER (BEAKER) 206 mg/dL 70-110 TESTED AT [address] (test kiqg=0765) [place] [address] CBC W/PLT COUNT & AUTO [id number] 06:25:00 Test Item Value Reference Range Comments WHITE BLOOD CELL COUNT (BEAKER) (test tbnq=160) 13.6 K/ L 3.5-10.5 RED BLOOD CELL COUNT (BEAKER) (test cwcn=949) 2.66 M/ L 3.93-5.22 HEMOGLOBIN (BEAKER) (test jcmd=059) 8.2 GM/DL 11.2-15.7 HEMATOCRIT (BEAKER) (test gwzi=072) 25.5 % 34.1-44.9 MEAN CORPUSCULAR VOLUME (BEAKER) (test mrxz=845) 95.9 fL 79.4-94.8 MEAN CORPUSCULAR HEMOGLOBIN (BEAKER) (test 30.8 pg 25.6-32.2 xwkc=580) MEAN CORPUSCULAR HEMOGLOBIN CONC (BEAKER) (test 32.2 GM/DL 32.2-35.5 rzdn=443) RED CELL DISTRIBUTION WIDTH (BEAKER) (test 14.9 % 11.7-14.4 jbfk=288) PLATELET COUNT (BEAKER) (test liyq=780) 278 K/CU MM 150-450 MEAN PLATELET VOLUME (BEAKER) (test aukt=258) 10.2 fL 9.4-12.3 NUCLEATED RED BLOOD CELLS (BEAKER) (test 0 /100 WBC 0-0 hcib=358) NEUTROPHILS RELATIVE PERCENT (BEAKER) (test 82 % qiac=574) LYMPHOCYTES RELATIVE PERCENT (BEAKER) (test 5 % liji=500) MONOCYTES RELATIVE PERCENT (BEAKER) (test 13 % janm=951) EOSINOPHILS RELATIVE PERCENT (BEAKER) (test 0 % ycnk=370) BASOPHILS RELATIVE PERCENT (BEAKER) (test 0 % czzj=089) NEUTROPHILS ABSOLUTE COUNT (BEAKER) (test 11.05 K/ L 1.56-6.13 vldj=045) LYMPHOCYTES ABSOLUTE COUNT (BEAKER) (test 0.63 K/ L 1.18-3.74 xcfq=743) MONOCYTES ABSOLUTE COUNT (BEAKER) (test 1.74 K/ L 0.24-0.36 cpqt=209) EOSINOPHILS ABSOLUTE COUNT (BEAKER) (test 0.00 K/ L 0.04-0.36 fkfq=075) BASOPHILS ABSOLUTE COUNT (BEAKER) (test 0.01 K/ L 0.01-0.08 ijob=695) IMMATURE GRANULOCYTES-RELATIVE PERCENT (BEAKER) 1 % 0-1 (test znyg=9672) BASIC METABOLIC [id number] 06:22:00 Test Item Value Reference Range Comments SODIUM (BEAKER) (test 135 meq/L 136-145 quck=460) POTASSIUM (BEAKER) (test 4.8 meq/L 3.5-5.1 Specimen moderately kxjg=301) hemolyzed CHLORIDE (BEAKER) (test 102 meq/L 98-107 abch=002) CO2 (BEAKER) (test 18 meq/L 22-29 nqps=096) BLOOD UREA NITROGEN 84 mg/dL 7-21 (BEAKER) (test knxl=062) CREATININE (BEAKER) (test 4.72 mg/dL 0.57-1.25 Specimen moderately uyxq=973) hemolyzed GLUCOSE RANDOM (BEAKER) 205 mg/dL 70-105 (test uqlz=931) CALCIUM (BEAKER) (test 8.5 mg/dL 8.4-10.2 xcbc=231) EGFR (BEAKER) (test 9 mL/min/1.73 sq m ESTIMATED GFR IS NOT vbya=7146) ACCURATE CREATININE CLEARANCE IN PREDICTING GLOMERULAR FILTRATION RATE. ESTIMATED GFR IS NOT APPLICABLE FOR DIALYSIS PATIENTS. RAD, CHEST, 1 VIEW, NON [id number] 05:59:00Reason for exam:->SOBShould this be performed at [...] Desire Méndezort Verified Date/Time: 08/09/2018 05:59:24 POCT-GLUCOSE [id number] 22:05:00 Test Item Value Reference Range Comments POC-GLUCOSE METER (BEAKER) 254 mg/dL 70-[address] [facility] [address] [facility] (test dyki=4293) [facility] [address] POCT-GLUCOSE [id number] 18:33:00 Test Item Value Reference Range Comments POC-GLUCOSE METER (BEAKER) 271 mg/dL 70-[address] [facility] [address] [facility] (test wckk=2676) [facility] [address] RAD, CHEST, 1 VIEW, NON [id number] 15:44:00Reason for exam:->IABP placementShould this be performed [...] the lower cervical spine. Signed: Heather Tracey [facility] Verified Date/Time: 08/08/2018 15:44:27 Reading Location: [facility] Mammo Reading Room RAD, CHEST, 1 VIEW, NON [id number] 13:42: 00Reason for exam:->IABP positionShould this be [...] Tracey Verified Date/Time: 08/08/2018 13:42:06 Reading Location: [facility] Mammo Reading Room POCT-GLUCOSE [id number] 13:28:00 Test Item Value Reference Range Comments POC-GLUCOSE METER (BEAKER) 294 mg/dL 70-110 TESTED AT [address] (test sqpf=0044) [place] [address] RAD, CHEST, 1 VIEW, NON [id number] 08:20:00Reason for exam:->SOBShould this be performed at [...] Sauer Verified Date/Time: 08/08/2018 08:20:51 Reading Location: [facility] Radiology Reading Room POCT-GLUCOSE [id number] 07:57:00 Test Item Value Reference Range Comments POC-GLUCOSE METER (BEAKER) 286 mg/dL 70-110 TESTED AT [address] (test wpkx=6870) [place] [address] CBC W/PLT COUNT & AUTO [id number] 05:11:00 Test Item Value Reference Range Comments WHITE BLOOD CELL COUNT (BEAKER) (test pamt=693) 11.2 K/ L 3.5-10.5 RED BLOOD CELL COUNT (BEAKER) (test ndnj=195) 2.71 M/ L 3.93-5.22 HEMOGLOBIN (BEAKER) (test vlzv=069) 8.3 GM/DL 11.2-15.7 HEMATOCRIT (BEAKER) (test qvgv=232) 26.1 % 34.1-44.9 MEAN CORPUSCULAR VOLUME (BEAKER) (test lyve=000) 96.3 fL 79.4-94.8 MEAN CORPUSCULAR HEMOGLOBIN (BEAKER) (test 30.6 pg 25.6-32.2 wvyo=495) MEAN CORPUSCULAR HEMOGLOBIN CONC (BEAKER) (test 31.8 GM/DL 32.2-35.5 fgca=320) RED CELL DISTRIBUTION WIDTH (BEAKER) (test 14.0 % 11.7-14.4 lbhy=972) PLATELET COUNT (BEAKER) (test uvfd=427) 227 K/CU MM 150-450 MEAN PLATELET VOLUME (BEAKER) (test rjsm=495) 10.6 fL 9.4-12.3 NUCLEATED RED BLOOD CELLS (BEAKER) (test 0 /100 WBC 0-0 pjxi=349) NEUTROPHILS RELATIVE PERCENT (BEAKER) (test 90 % ufra=531) LYMPHOCYTES RELATIVE PERCENT (BEAKER) (test 4 % jevv=341) MONOCYTES RELATIVE PERCENT (BEAKER) (test 4 % dvfv=685) EOSINOPHILS RELATIVE PERCENT (BEAKER) (test 0 % qmmt=738) BASOPHILS RELATIVE PERCENT (BEAKER) (test 0 % ilvv=178) NEUTROPHILS ABSOLUTE COUNT (BEAKER) (test 10.06 K/ L 1.56-6.13 tivv=359) LYMPHOCYTES ABSOLUTE COUNT (BEAKER) (test 0.45 K/ L 1.18-3.74 zdpv=955) MONOCYTES ABSOLUTE COUNT (BEAKER) (test 0.48 K/ L 0.24-0.36 tdul=313) EOSINOPHILS ABSOLUTE COUNT (BEAKER) (test 0.00 K/ L 0.04-0.36 pfih=356) BASOPHILS ABSOLUTE COUNT (BEAKER) (test 0.03 K/ L 0.01-0.08 jiof=269) IMMATURE GRANULOCYTES-RELATIVE PERCENT (BEAKER) 2 % 0-1 (test zrac=3221) [id number] 04:43:00 Test Item Value Reference Range Comments MAGNESIUM (BEAKER) (test ytyd=266) 2.3 mg/dL 1.6-2.6 BASIC METABOLIC [id number] 04:43:00 Test Item Value Reference Range Comments SODIUM (BEAKER) (test 135 meq/L 136-145 cywy=682) POTASSIUM (BEAKER) (test 4.9 meq/L 3.5-5.1 twhb=694) CHLORIDE (BEAKER) (test 102 meq/L 98-107 qcnb=800) CO2 (BEAKER) (test 18 meq/L 22-29 rnwy=748) BLOOD UREA NITROGEN 68 mg/dL 7-21 (BEAKER) (test fbsd=934) CREATININE (BEAKER) (test 3.54 mg/dL 0.57-1.25 iwoj=341) GLUCOSE RANDOM (BEAKER) 267 mg/dL 70-105 (test mlpq=052) CALCIUM (BEAKER) (test 8.6 mg/dL 8.4-10.2 ldgu=429) EGFR (BEAKER) (test 12 mL/min/1.73 sq m ESTIMATED GFR IS NOT gofc=8364) ACCURATE CREATININE CLEARANCE IN PREDICTING GLOMERULAR FILTRATION RATE. ESTIMATED GFR IS NOT APPLICABLE FOR DIALYSIS PATIENTS. POCT-GLUCOSE [id number] 22:27:00 Test Item Value Reference Range Comments POC-GLUCOSE METER (BEAKER) 279 mg/dL 70-110 TESTED AT [address] (test ezzq=4181) [facility] [address] BASIC METABOLIC [id number] 22:17:00 Test Item Value Reference Range Comments SODIUM (BEAKER) (test 133 meq/L 136-145 uhws=918) POTASSIUM (BEAKER) (test 4.6 meq/L 3.5-5.1 agfy=021) CHLORIDE (BEAKER) (test 100 meq/L 98-107 mkxk=169) CO2 (BEAKER) (test 18 meq/L 22-29 xtph=022) BLOOD UREA NITROGEN 64 mg/dL 7-21 (BEAKER) (test tbtv=263) CREATININE (BEAKER) (test 3.59 mg/dL 0.57-1.25 bnve=151) GLUCOSE RANDOM (BEAKER) 250 mg/dL 70-105 (test bbpf=239) CALCIUM (BEAKER) (test 8.3 mg/dL 8.4-10.2 ljnq=458) EGFR (BEAKER) (test 12 mL/min/1.73 sq m ESTIMATED GFR IS NOT umul=2856) ACCURATE CREATININE CLEARANCE IN PREDICTING GLOMERULAR FILTRATION RATE. ESTIMATED GFR IS NOT APPLICABLE FOR DIALYSIS PATIENTS. [id number] 22:13:00 Test Item Value Reference Range Comments MAGNESIUM (BEAKER) (test wysh=544) 2.1 mg/dL 1.6-2.6 [id number] 19:37:00 Test Item Value Reference Range Comments ACTIVATED CLOTTING TIME 268 sec TESTED AT [address] (BEAKER) (test pcdx=645) [place] [address] [id number] 18:30:00 Test Item Value Reference Range Comments ACTIVATED CLOTTING TIME 257 sec TESTED AT [address] (BEAKER) (test acoh=698) [place] [address] [id number] 17:58:00 Test Item Value Reference Range Comments ACTIVATED CLOTTING TIME 219 sec TESTED AT [address] (BEAKER) (test qbyz=917) [place] [address] [id number] 17:58:00 Test Item Value Reference Range Comments ACTIVATED CLOTTING TIME > sec OUTSIDE MEASURING RANGETESTED AT (BEAKER) (test bxmj=137) [place] [id number] POCT-GLUCOSE [id number] 12:23:00 Test Item Value Reference Range Comments POC-GLUCOSE METER (BEAKER) 169 mg/dL 70-110 TESTED AT [address] (test szsb=8979) [place] [address] RAD, CHEST, 1 VIEW, NON [id number] 09:10:00Reason for exam:->SOBShould this be performed at the bedside?->YesFINAL REPORT Chest dated 08/07/2018 COMPARISON: 08/06/2018 Clinical Information: SOB Comment: Heart is enlarged. Pulmonary vasculature is indistinct. Interstitial disease is seen bilaterally suggestive of vascular congestion or pulmonary edema. There is small bilateral pleural effusion. IMPRESSION: No interval change. Signed: [place] Verified Date/Time: 08/07/2018 09:10:23 Reading Location: [facility] Reading Room POCT-GLUCOSE [id number] 07:49:00 Test Item Value Reference Range Comments POC-GLUCOSE METER (BEAKER) 165 mg/dL 70-110 TESTED AT [address] (test paud=2982) [facility] [address] COMPREHENSIVE METABOLIC [id number] 06:00:00 Test Item Value Reference Range Comments TOTAL PROTEIN (BEAKER) 6.0 gm/dL 6.0-8.3 (test ytnt=350) ALBUMIN (BEAKER) (test 3.3 g/dL 3.5-5.0 mfso=9405) ALKALINE PHOSPHATASE 58 U/L 40-150 (BEAKER) (test iotw=295) BILIRUBIN TOTAL (BEAKER) 0.4 mg/dL 0.2-1.2 (test oghz=978) SODIUM (BEAKER) (test 135 meq/L 136-145 rxts=144) POTASSIUM (BEAKER) (test 4.1 meq/L 3.5-5.1 lakh=464) CHLORIDE (BEAKER) (test 102 meq/L 98-107 hzwb=279) CO2 (BEAKER) (test 24 meq/L 22-29 ztuu=220) BLOOD UREA NITROGEN 52 mg/dL 7-21 (BEAKER) (test vwct=338) CREATININE (BEAKER) (test 3.23 mg/dL 0.57-1.25 wjtf=301) GLUCOSE RANDOM (BEAKER) 154 mg/dL 70-105 (test nrsi=296) CALCIUM (BEAKER) (test 8.3 mg/dL 8.4-10.2 ukgl=988) AST (SGOT) (BEAKER) (test 31 U/L 5-34 iyeh=796) ALT (SGPT) (BEAKER) (test 17 U/L 6-55 zqdt=430) EGFR (BEAKER) (test 14 mL/min/1.73 sq m ESTIMATED GFR IS NOT toop=4630) ACCURATE CREATININE CLEARANCE IN PREDICTING GLOMERULAR FILTRATION RATE. ESTIMATED GFR IS NOT APPLICABLE FOR DIALYSIS PATIENTS. [id number] 05:56:00 Test Item Value Reference Range Comments PHOSPHORUS (BEAKER) (test ortu=770) 2.9 mg/dL 2.3-4.7 [id number] 05:56:00 Test Item Value Reference Range Comments MAGNESIUM (BEAKER) (test wmnx=680) 2.0 mg/dL 1.6-2.6 CBC W/PLT COUNT & AUTO [id number] 05:42:00 Test Item Value Reference Range Comments WHITE BLOOD CELL COUNT (BEAKER) (test sdnz=149) 9.6 K/ L 3.5-10.5 RED BLOOD CELL COUNT (BEAKER) (test cnht=085) 2.84 M/ L 3.93-5.22 HEMOGLOBIN (BEAKER) (test acuc=215) 8.8 GM/DL 11.2-15.7 HEMATOCRIT (BEAKER) (test amya=856) 27.2 % 34.1-44.9 MEAN CORPUSCULAR VOLUME (BEAKER) (test eqqu=593) 95.8 fL 79.4-94.8 MEAN CORPUSCULAR HEMOGLOBIN (BEAKER) (test 31.0 pg 25.6-32.2 vcmk=289) MEAN CORPUSCULAR HEMOGLOBIN CONC (BEAKER) (test 32.4 GM/DL 32.2-35.5 pxal=229) RED CELL DISTRIBUTION WIDTH (BEAKER) (test 14.1 % 11.7-14.4 gidl=653) PLATELET COUNT (BEAKER) (test idxx=147) 218 K/CU MM 150-450 MEAN PLATELET VOLUME (BEAKER) (test asng=491) 10.2 fL 9.4-12.3 NUCLEATED RED BLOOD CELLS (BEAKER) (test 0 /100 WBC 0-0 lero=684) NEUTROPHILS RELATIVE PERCENT (BEAKER) (test 76 % pkms=358) LYMPHOCYTES RELATIVE PERCENT (BEAKER) (test 9 % pxfk=591) MONOCYTES RELATIVE PERCENT (BEAKER) (test 12 % ixfp=081) EOSINOPHILS RELATIVE PERCENT (BEAKER) (test 1 % zzda=497) BASOPHILS RELATIVE PERCENT (BEAKER) (test 0 % rksa=406) NEUTROPHILS ABSOLUTE COUNT (BEAKER) (test 7.35 K/ L 1.56-6.13 eclo=703) LYMPHOCYTES ABSOLUTE COUNT (BEAKER) (test 0.84 K/ L 1.18-3.74 djuk=547) MONOCYTES ABSOLUTE COUNT (BEAKER) (test 1.16 K/ L 0.24-0.36 svyt=693) EOSINOPHILS ABSOLUTE COUNT (BEAKER) (test 0.13 K/ L 0.04-0.36 igpz=009) BASOPHILS ABSOLUTE COUNT (BEAKER) (test 0.04 K/ L 0.01-0.08 vesl=786) IMMATURE GRANULOCYTES-RELATIVE PERCENT (BEAKER) 1 % 0-1 (test rluw=5366) CALCIUM, [id number] 05:32:00 Test Item Value Reference Range Comments CALCIUM IONIZED (BEAKER) (test agzx=323) 1.12 mmol/L 1.12-1.27 PH, BLOOD (BEAKER) (test wwwo=4601) 7.36 POCT-GLUCOSE [id number] 21:35:00 Test Item Value Reference Range Comments POC-GLUCOSE METER (BEAKER) 143 mg/dL 70-110 TESTED AT [address] (test fjmw=2596) [facility] [address] POCT-GLUCOSE [id number] 17:31:00 Test Item Value Reference Range Comments POC-GLUCOSE METER (BEAKER) 105 mg/dL 70-110 TESTED AT [address] (test gkxq=1760) [facility] [address] POCT-GLUCOSE [id number] 12:46:00 Test Item Value Reference Range Comments POC-GLUCOSE METER (BEAKER) 159 mg/dL 70-110 TESTED AT [address] (test rqvp=5566) [facility] [address] POCT-GLUCOSE [id number] 07:40:00 Test Item Value Reference Range Comments POC-GLUCOSE METER (BEAKER) 120 mg/dL 70-110 TESTED AT [address] (test siqd=2861) [facility] [address] [id number] 04:52:00 Test Item Value Reference Range Comments MAGNESIUM (BEAKER) (test bxez=295) 1.8 mg/dL 1.6-2.6 BASIC METABOLIC [id number] 04:52:00 Test Item Value Reference Range Comments SODIUM (BEAKER) (test 137 meq/L 136-145 tzxd=713) POTASSIUM (BEAKER) (test 3.8 meq/L 3.5-5.1 bsah=886) CHLORIDE (BEAKER) (test 105 meq/L 98-107 ayvr=745) CO2 (BEAKER) (test 23 meq/L 22-29 jjoa=210) BLOOD UREA NITROGEN 51 mg/dL 7-21 (BEAKER) (test jhta=608) CREATININE (BEAKER) (test 2.93 mg/dL 0.57-1.25 febl=664) GLUCOSE RANDOM (BEAKER) 108 mg/dL 70-105 (test fyqg=131) CALCIUM (BEAKER) (test 8.4 mg/dL 8.4-10.2 hjio=180) EGFR (BEAKER) (test 16 mL/min/1.73 sq m ESTIMATED GFR IS NOT naqz=8608) ACCURATE CREATININE CLEARANCE IN PREDICTING GLOMERULAR FILTRATION RATE. ESTIMATED GFR IS NOT APPLICABLE FOR DIALYSIS PATIENTS. RAD, CHEST, 1 VIEW, NON [id number] 04:45:00Reason for exam:->SOBShould this be performed at [...] [place] Verified Date/Time: 08/06/2018 04:45:08 Reading Location: [address] Reading Room [id number] 04:31:00 Test Item Value Reference Range Comments PARTIAL THROMBOPLASTIN TIME (BEAKER) (test 45.7 seconds 22.5-36.0 lpyn=676) 4 hours after the start of continuous infusion and 4 hours after any rate changeCBC W/PLT COUNT & AUTO [id number] 04:23:00 Test Item Value Reference Range Comments WHITE BLOOD CELL COUNT (BEAKER) (test ilir=709) 8.8 K/ L 3.5-10.5 RED BLOOD CELL COUNT (BEAKER) (test mmdq=627) 2.95 M/ L 3.93-5.22 HEMOGLOBIN (BEAKER) (test pqvz=708) 9.1 GM/DL 11.2-15.7 HEMATOCRIT (BEAKER) (test uayu=170) 27.9 % 34.1-44.9 MEAN CORPUSCULAR VOLUME (BEAKER) (test rjbj=495) 94.6 fL 79.4-94.8 MEAN CORPUSCULAR HEMOGLOBIN (BEAKER) (test 30.8 pg 25.6-32.2 tuiw=150) MEAN CORPUSCULAR HEMOGLOBIN CONC (BEAKER) (test 32.6 GM/DL 32.2-35.5 hohc=451) RED CELL DISTRIBUTION WIDTH (BEAKER) (test 13.4 % 11.7-14.4 aibm=381) PLATELET COUNT (BEAKER) (test edke=029) 223 K/CU MM 150-450 MEAN PLATELET VOLUME (BEAKER) (test erbk=391) 10.0 fL 9.4-12.3 NUCLEATED RED BLOOD CELLS (BEAKER) (test 0 /100 WBC 0-0 jeqc=473) NEUTROPHILS RELATIVE PERCENT (BEAKER) (test 75 % dokr=199) LYMPHOCYTES RELATIVE PERCENT (BEAKER) (test 12 % rswl=486) MONOCYTES RELATIVE PERCENT (BEAKER) (test 10 % bveq=209) EOSINOPHILS RELATIVE PERCENT (BEAKER) (test 2 % dkyv=480) BASOPHILS RELATIVE PERCENT (BEAKER) (test 0 % msox=665) NEUTROPHILS ABSOLUTE COUNT (BEAKER) (test 6.55 K/ L 1.56-6.13 azia=247) LYMPHOCYTES ABSOLUTE COUNT (BEAKER) (test 1.08 K/ L 1.18-3.74 ayvi=978) MONOCYTES ABSOLUTE COUNT (BEAKER) (test 0.89 K/ L 0.24-0.36 llnt=525) EOSINOPHILS ABSOLUTE COUNT (BEAKER) (test 0.16 K/ L 0.04-0.36 biov=578) BASOPHILS ABSOLUTE COUNT (BEAKER) (test 0.03 K/ L 0.01-0.08 apva=953) IMMATURE GRANULOCYTES-RELATIVE PERCENT (BEAKER) 1 % 0-1 (test gqjj=0243) POCT-GLUCOSE [id number] 21:47:00 Test Item Value Reference Range Comments POC-GLUCOSE METER (BEAKER) 184 mg/dL 70-110 TESTED AT [address] (test afcp=2977) [facility] [address] POCT-GLUCOSE [id number] 17:15:00 Test Item Value Reference Range Comments POC-GLUCOSE METER (BEAKER) 120 mg/dL 70-110 TESTED AT [address] (test svjh=8765) [facility] [address] POCT-GLUCOSE [id number] 12:00:00 Test Item Value Reference Range Comments POC-GLUCOSE METER (BEAKER) 226 mg/dL 70-[address] [facility] [address] [facility] (test tjwn=3721) [facility] [address] POCT-GLUCOSE [id number] 07:45:00 Test Item Value Reference Range Comments POC-GLUCOSE METER (BEAKER) 192 mg/dL 70-[address] [facility] [address] [facility] (test lojh=4406) [facility] [address] RAD, CHEST, 1 VIEW, NON [id number] 07:45:00Reason for exam:->SOBShould this be performed at [...] contours. Additionalfindings: None. Signed: JR Mary, Radha [facility] Verified Date/Time: 08/05/2018 07:45: 53 Reading Location: [address] Neuro Reading Room [id number] 06:25:00 Test Item Value Reference Range Comments MAGNESIUM (BEAKER) (test poya=214) 1.8 mg/dL 1.6-2.6 BASIC METABOLIC [id number] 06:25:00 Test Item Value Reference Range Comments SODIUM (BEAKER) (test 138 meq/L 136-145 wprc=809) POTASSIUM (BEAKER) (test 3.9 meq/L 3.5-5.1 cgxx=812) CHLORIDE (BEAKER) (test 107 meq/L 98-107 ncdx=968) CO2 (BEAKER) (test 23 meq/L 22-29 klkp=064) BLOOD UREA NITROGEN 53 mg/dL 7-21 (BEAKER) (test giuw=745) CREATININE (BEAKER) (test 2.79 mg/dL 0.57-1.25 zjww=964) GLUCOSE RANDOM (BEAKER) 134 mg/dL 70-105 (test pjbz=223) CALCIUM (BEAKER) (test 8.3 mg/dL 8.4-10.2 nelh=859) EGFR (BEAKER) (test 16 mL/min/1.73 sq m ESTIMATED GFR IS NOT rggt=4078) ACCURATE CREATININE CLEARANCE IN PREDICTING GLOMERULAR FILTRATION RATE. ESTIMATED GFR IS NOT APPLICABLE FOR DIALYSIS PATIENTS. CBC W/PLT COUNT & AUTO [id number] 05:59:00 Test Item Value Reference Range Comments WHITE BLOOD CELL COUNT (BEAKER) (test iecr=649) 8.1 K/ L 3.5-10.5 RED BLOOD CELL COUNT (BEAKER) (test djvi=038) 3.09 M/ L 3.93-5.22 HEMOGLOBIN (BEAKER) (test gpgo=365) 9.5 GM/DL 11.2-15.7 HEMATOCRIT (BEAKER) (test rxzt=251) 30.1 % 34.1-44.9 MEAN CORPUSCULAR VOLUME (BEAKER) (test klvs=847) 97.4 fL 79.4-94.8 MEAN CORPUSCULAR HEMOGLOBIN (BEAKER) (test 30.7 pg 25.6-32.2 ehrh=827) MEAN CORPUSCULAR HEMOGLOBIN CONC (BEAKER) (test 31.6 GM/DL 32.2-35.5 xmfz=581) RED CELL DISTRIBUTION WIDTH (BEAKER) (test 13.5 % 11.7-14.4 jxbd=729) PLATELET COUNT (BEAKER) (test hpyr=971) 172 K/CU MM 150-450 MEAN PLATELET VOLUME (BEAKER) (test tqgn=465) 10.1 fL 9.4-12.3 NUCLEATED RED BLOOD CELLS (BEAKER) (test 0 /100 WBC 0-0 aigt=762) NEUTROPHILS RELATIVE PERCENT (BEAKER) (test 75 % cqkw=635) LYMPHOCYTES RELATIVE PERCENT (BEAKER) (test 12 % afqy=599) MONOCYTES RELATIVE PERCENT (BEAKER) (test 11 % pxph=340) EOSINOPHILS RELATIVE PERCENT (BEAKER) (test 2 % nfta=830) BASOPHILS RELATIVE PERCENT (BEAKER) (test 0 % tqrw=676) NEUTROPHILS ABSOLUTE COUNT (BEAKER) (test 6.06 K/ L 1.56-6.13 jvks=309) LYMPHOCYTES ABSOLUTE COUNT (BEAKER) (test 0.95 K/ L 1.18-3.74 ckdt=000) MONOCYTES ABSOLUTE COUNT (BEAKER) (test 0.85 K/ L 0.24-0.36 boed=558) EOSINOPHILS ABSOLUTE COUNT (BEAKER) (test 0.13 K/ L 0.04-0.36 bgex=761) BASOPHILS ABSOLUTE COUNT (BEAKER) (test 0.03 K/ L 0.01-0.08 lawt=147) IMMATURE GRANULOCYTES-RELATIVE PERCENT (BEAKER) 1 % 0-1 (test wpxc=0475) POCT-GLUCOSE [id number] 22:07:00 Test Item Value Reference Range Comments POC-GLUCOSE METER (BEAKER) 183 mg/dL 70-110 TESTED AT [address] (test ikii=9059) [place] [address] POCT-GLUCOSE [id number] 18:23:00 Test Item Value Reference Range Comments POC-GLUCOSE METER (BEAKER) 174 mg/dL 70-110 TESTED AT [address] (test lrey=1213) [place] [address] C. DIFFICILE GDH [id number] 15:36:00 Test Item Value Reference Range Comments CDT TOXIN (test Negative Negative ybmf=[id number]) CDT GDH ANTIGEN (test Positive Negative C. difficile present but toxin fvvw=[id number]) not detected. Indicates colonization with non-toxigenic strain [...] prior to clinical use.URINALYSIS W/ REFLEX URINE [id number] 15:18:00 Test Item Value Reference Range Comments COLOR (BEAKER) (test uytn=586) Yellow CLARITY (BEAKER) (test tyro=239) Hazy SPECIFIC GRAVITY UA (BEAKER) (test pvzd=922) 1.017 1.001-1.035 PH UA (BEAKER) (test uzbq=018) 5.5 5.0-8.0 PROTEIN UA (BEAKER) (test ypco=360) 30 mg/dL Negative GLUCOSE UA (BEAKER) (test apsm=148) Negative Negative KETONES UA (BEAKER) (test zsvg=807) Negative Negative BILIRUBIN UA (BEAKER) (test ysnc=142) Negative Negative BLOOD UA (BEAKER) (test qcyn=331) Trace Negative NITRITE UA (BEAKER) (test cjnn=030) Negative Negative LEUKOCYTE ESTERASE UA (BEAKER) (test mscc=761) Large Negative UROBILINOGEN UA (BEAKER) (test eplq=547) 0.2 mg/dL 0.2-1.0 RBC UA (BEAKER) (test vjik=740) 0 /HPF WBC UA (BEAKER) (test vewo=440) 190 /HPF BACTERIA (BEAKER) (test xftc=707) Many MUCUS (BEAKER) (test fzzn=2610) Rare SQUAMOUS EPITHELIAL (BEAKER) (test kslv=982) 1 /HPF HYALINE CASTS (BEAKER) (test hsov=355) 4 /LPF SOURCE(BEAKER) (test tdet=9887) POCT-GLUCOSE [id number] 13:03:00 Test Item Value Reference Range Comments POC-GLUCOSE METER (BEAKER) 213 mg/dL 70-110 TESTED AT [address] (test oewa=9730) [place] [address] OCCULT BLOOD, [id number] 11:58:00 Test Item Value Reference Range Comments FECAL OCCULT BLOOD (BEAKER) (test dohz=341) Positive Negative POCT-GLUCOSE [id number] 08:00:00 Test Item Value Reference Range Comments POC-GLUCOSE METER (BEAKER) 127 mg/dL 70-110 TESTED AT [address] (test ctzk=9258) [place] [address] TROPONIN [id number] 07:07:00 Test Item Value Reference Range Comments TROPONIN I (BEAKER) (test sosq=614) 44.85 ng/mL 0.00-0.03 Troponin I (TnI) levels [...] and persistent tachyarrhythmia.RAD, CHEST, 1 VIEW, NON [id number] 07:00:00Reason for exam:->SOBShould this be performed at [...] Verified Date/Time: 08/04/2018 07:00: 06 Reading Location: [address] Neuro Reading Room COMPREHENSIVE METABOLIC [id number] 06:56:00 Test Item Value Reference Range Comments TOTAL PROTEIN (BEAKER) 5.7 gm/dL 6.0-8.3 (test meiy=164) ALBUMIN (BEAKER) (test 3.2 g/dL 3.5-5.0 iaoa=1672) ALKALINE PHOSPHATASE 55 U/L 40-150 (BEAKER) (test grea=528) BILIRUBIN TOTAL (BEAKER) 0.5 mg/dL 0.2-1.2 (test uhwx=097) SODIUM (BEAKER) (test 138 meq/L 136-145 goxb=667) POTASSIUM (BEAKER) (test 3.7 meq/L 3.5-5.1 utvi=798) CHLORIDE (BEAKER) (test 107 meq/L 98-107 gkjt=898) CO2 (BEAKER) (test 24 meq/L 22-29 vxjb=729) BLOOD UREA NITROGEN 61 mg/dL 7-21 (BEAKER) (test nlfr=618) CREATININE (BEAKER) (test 2.88 mg/dL 0.57-1.25 taif=738) GLUCOSE RANDOM (BEAKER) 122 mg/dL 70-105 (test ylmt=511) CALCIUM (BEAKER) (test 8.1 mg/dL 8.4-10.2 hfkj=469) AST (SGOT) (BEAKER) (test 71 U/L 5-34 ibqx=558) ALT (SGPT) (BEAKER) (test 23 U/L 6-55 xpec=146) EGFR (BEAKER) (test 16 mL/min/1.73 sq m ESTIMATED GFR IS NOT vher=9129) ACCURATE CREATININE CLEARANCE IN PREDICTING GLOMERULAR FILTRATION RATE. ESTIMATED GFR IS NOT APPLICABLE FOR DIALYSIS PATIENTS. [id number] 06:55:00 Test Item Value Reference Range Comments PHOSPHORUS (BEAKER) (test dbmp=335) 2.8 mg/dL 2.3-4.7 [id number] 06:55:00 Test Item Value Reference Range Comments MAGNESIUM (BEAKER) (test cnid=459) 1.9 mg/dL 1.6-2.6 CBC W/PLT COUNT & AUTO [id number] 06:12:00 Test Item Value Reference Range Comments WHITE BLOOD CELL COUNT (BEAKER) (test bppl=395) 10.1 K/ L 3.5-10.5 RED BLOOD CELL COUNT (BEAKER) (test mrvw=757) 3.03 M/ L 3.93-5.22 HEMOGLOBIN (BEAKER) (test owuu=378) 9.3 GM/DL 11.2-15.7 HEMATOCRIT (BEAKER) (test eifh=719) 28.5 % 34.1-44.9 MEAN CORPUSCULAR VOLUME (BEAKER) (test vmgq=804) 94.1 fL 79.4-94.8 MEAN CORPUSCULAR HEMOGLOBIN (BEAKER) (test 30.7 pg 25.6-32.2 mdhl=112) MEAN CORPUSCULAR HEMOGLOBIN CONC (BEAKER) (test 32.6 GM/DL 32.2-35.5 mshk=077) RED CELL DISTRIBUTION WIDTH (BEAKER) (test 13.4 % 11.7-14.4 rwkv=327) PLATELET COUNT (BEAKER) (test xpds=539) 151 K/CU MM 150-450 MEAN PLATELET VOLUME (BEAKER) (test akng=592) 10.5 fL 9.4-12.3 NUCLEATED RED BLOOD CELLS (BEAKER) (test 0 /100 WBC 0-0 gvum=743) NEUTROPHILS RELATIVE PERCENT (BEAKER) (test 77 % wdvd=301) LYMPHOCYTES RELATIVE PERCENT (BEAKER) (test 11 % czkl=609) MONOCYTES RELATIVE PERCENT (BEAKER) (test 11 % utdf=834) EOSINOPHILS RELATIVE PERCENT (BEAKER) (test 1 % wsln=897) BASOPHILS RELATIVE PERCENT (BEAKER) (test 0 % nhxa=844) NEUTROPHILS ABSOLUTE COUNT (BEAKER) (test 7.78 K/ L 1.56-6.13 zeth=276) LYMPHOCYTES ABSOLUTE COUNT (BEAKER) (test 1.08 K/ L 1.18-3.74 bfxp=071) MONOCYTES ABSOLUTE COUNT (BEAKER) (test 1.09 K/ L 0.24-0.36 wngt=951) EOSINOPHILS ABSOLUTE COUNT (BEAKER) (test 0.07 K/ L 0.04-0.36 nvbk=653) BASOPHILS ABSOLUTE COUNT (BEAKER) (test 0.02 K/ L 0.01-0.08 mmkr=117) IMMATURE GRANULOCYTES-RELATIVE PERCENT (BEAKER) 1 % 0-1 (test fkje=4595) CALCIUM, [id number] 05:58:00 Test Item Value Reference Range Comments CALCIUM IONIZED (BEAKER) (test oocl=001) 1.11 mmol/L 1.12-1.27 PH, BLOOD (BEAKER) (test dgmm=5981) 7.38 POCT-GLUCOSE [id number] 22:08:00 Test Item Value Reference Range Comments POC-GLUCOSE METER (BEAKER) 163 mg/dL 70-110 TESTED AT [address] (test bckv=0850) [place] [address] POCT-GLUCOSE [id number] 18:05:00 Test Item Value Reference Range Comments POC-GLUCOSE METER (BEAKER) 215 mg/dL 70-110 TESTED AT [address] (test sukl=5601) [place] [id number] POCT-GLUCOSE [id number] 12:33:00 Test Item Value Reference Range Comments POC-GLUCOSE METER (BEAKER) 287 mg/dL 70-110 TESTED AT [address] (test hoat=2038) [place] [address] TROPONIN [id number] 10:28:00 Test Item Value Reference Range Comments TROPONIN I (BEAKER) (test jbpp=623) 56.87 ng/mL 0.00-0.03 Troponin I (TnI) levels [...] Range Comments CREATINE KINASE TOTAL (BEAKER) (test mdik=155) 601 U/L 29-200 RAD, CHEST, 1 VIEW, NON [id number] 08:51:00Reason for exam:->SOBShould this be performed at [...] MDReport Verified Date/Time: 08/03/2018 08:51:22 Reading Location: [facility] Reading Room [id number] 03:08:00 Test Item Value Reference Range Comments FERRITIN (BEAKER) (test wwsn=098) 207 ng/mL 5-275 VITAMIN B12 AND [id number] 03:08:00 Test Item Value Reference Range Comments VITAMIN B12 (BEAKER) (test rrwk=721) 212 pg/mL 213-816 FOLATE (BEAKER) (test qivk=632) 15.1 ng/mL >=7.0 COMPREHENSIVE METABOLIC [id number] 02:38:00 Test Item Value Reference Range Comments TOTAL PROTEIN (BEAKER) 5.7 gm/dL 6.0-8.3 (test uoka=704) ALBUMIN (BEAKER) (test 3.2 g/dL 3.5-5.0 rxxl=6398) ALKALINE PHOSPHATASE 55 U/L 40-150 (BEAKER) (test khpv=648) BILIRUBIN TOTAL (BEAKER) 0.5 mg/dL 0.2-1.2 (test fanc=756) SODIUM (BEAKER) (test 139 meq/L 136-145 txcc=888) POTASSIUM (BEAKER) (test 4.6 meq/L 3.5-5.1 usbt=156) CHLORIDE (BEAKER) (test 107 meq/L 98-107 dvmj=792) CO2 (BEAKER) (test 24 meq/L 22-29 gnzn=734) BLOOD UREA NITROGEN 63 mg/dL 7-21 (BEAKER) (test bsaw=112) CREATININE (BEAKER) (test 2.96 mg/dL 0.57-1.25 ltfs=580) GLUCOSE RANDOM (BEAKER) 205 mg/dL 70-105 (test awgy=054) CALCIUM (BEAKER) (test 8.7 mg/dL 8.4-10.2 ufhg=929) AST (SGOT) (BEAKER) (test 138 U/L 5-34 yorh=084) ALT (SGPT) (BEAKER) (test 28 U/L 6-55 ojxa=593) EGFR (BEAKER) (test 15 mL/min/1.73 sq m ESTIMATED GFR IS NOT dqdf=2820) ACCURATE CREATININE CLEARANCE IN PREDICTING GLOMERULAR FILTRATION RATE. ESTIMATED GFR IS NOT APPLICABLE FOR DIALYSIS PATIENTS. [id number] 02:34:00 Test Item Value Reference Range Comments PHOSPHORUS (BEAKER) (test frwh=542) 4.7 mg/dL 2.3-4.7 [id number] 02:34:00 Test Item Value Reference Range Comments MAGNESIUM (BEAKER) (test dmng=909) 2.0 mg/dL 1.6-2.6 IRON, TIBC, % SAT. (WITHOUT FERRITIN)2018-08-03 02:34:00 Test Item Value Reference Range Comments IRON (BEAKER) (test xizx=932) 27.0 ug/dL 40.0-160.0 TOTAL IRON BINDING CAPACITY (BEAKER) (test 221 ug/dL 250-450 zhlj=559) IRON % SATURATION (2) (BEAKER) (test ydbd=8206) 12 % 20-55 CALCIUM, [id number] 02:26:00 Test Item Value Reference Range Comments CALCIUM IONIZED (BEAKER) (test ijvd=199) 1.12 mmol/L 1.12-1.27 PH, BLOOD (BEAKER) (test xheo=3171) 7.27 CBC W/PLT COUNT & AUTO [id number] 02:20:00 Test Item Value Reference Range Comments WHITE BLOOD CELL COUNT (BEAKER) (test ddud=474) 12.5 K/ L 3.5-10.5 RED BLOOD CELL COUNT (BEAKER) (test ecue=740) 3.39 M/ L 3.93-5.22 HEMOGLOBIN (BEAKER) (test lfmt=226) 10.4 GM/DL 11.2-15.7 HEMATOCRIT (BEAKER) (test dybk=638) 32.5 % 34.1-44.9 MEAN CORPUSCULAR VOLUME (BEAKER) (test kobp=106) 95.9 fL 79.4-94.8 MEAN CORPUSCULAR HEMOGLOBIN (BEAKER) (test 30.7 pg 25.6-32.2 zgeq=473) MEAN CORPUSCULAR HEMOGLOBIN CONC (BEAKER) (test 32.0 GM/DL 32.2-35.5 bids=645) RED CELL DISTRIBUTION WIDTH (BEAKER) (test 13.6 % 11.7-14.4 ebpw=741) PLATELET COUNT (BEAKER) (test bmky=543) 155 K/CU MM 150-450 MEAN PLATELET VOLUME (BEAKER) (test caet=466) 10.4 fL 9.4-12.3 NUCLEATED RED BLOOD CELLS (BEAKER) (test 0 /100 WBC 0-0 rpmc=180) NEUTROPHILS RELATIVE PERCENT (BEAKER) (test 83 % bllk=593) LYMPHOCYTES RELATIVE PERCENT (BEAKER) (test 8 % urpk=857) MONOCYTES RELATIVE PERCENT (BEAKER) (test 9 % mzuv=540) EOSINOPHILS RELATIVE PERCENT (BEAKER) (test 0 % czsz=990) BASOPHILS RELATIVE PERCENT (BEAKER) (test 0 % lfsd=936) NEUTROPHILS ABSOLUTE COUNT (BEAKER) (test 10.32 K/ L 1.56-6.13 vmyt=648) LYMPHOCYTES ABSOLUTE COUNT (BEAKER) (test 1.01 K/ L 1.18-3.74 jurk=240) MONOCYTES ABSOLUTE COUNT (BEAKER) (test 1.07 K/ L 0.24-0.36 heyu=459) EOSINOPHILS ABSOLUTE COUNT (BEAKER) (test 0.01 K/ L 0.04-0.36 bauk=971) BASOPHILS ABSOLUTE COUNT (BEAKER) (test 0.03 K/ L 0.01-0.08 czes=291) IMMATURE GRANULOCYTES-RELATIVE PERCENT (BEAKER) 1 % 0-1 (test kmtl=3248) RETICULOCYTE [id number] 02:16:00 Test Item Value Reference Range Comments RETICULOCYTE COUNT PCT ([facility]) (test ekjj=446) 2.7 % 0.5-1.7 POCT-GLUCOSE [id number] 01:12:00 Test Item Value Reference Range Comments POC-GLUCOSE METER (AKER) 239 mg/dL 70-110 TESTED AT [address] (test dmqx=0084) [place] [id number] POCT-GLUCOSE [id number] 20:38:00 Test Item Value Reference Range Comments POC-GLUCOSE METER (BEAKER) 207 mg/dL 70-110 TESTED AT [address] (test fqdj=1383) [place] [id number] POCT-GLUCOSE [id number] 16:39:00 Test Item Value Reference Range Comments POC-GLUCOSE METER (AKER) 216 mg/dL 70-110 TESTED AT [address] (test qrtc=3006) [place] [id number] 12:20:00 Test Item Value Reference Range Comments PARTIAL THROMBOPLASTIN TIME (AKER) (test 36.6 seconds 22.5-36.0 tilh=730) 4 hours after the start of continuous infusion and 4 hours after any rate changePOCT-GLUCOSE [id number] 12:03:00 Test Item Value Reference Range Comments POC-GLUCOSE METER (BEAKER) 206 mg/dL 70-110 TESTED AT [address] (test dcqi=9676) [place] [id number] POCT-GLUCOSE [id number] 12:03:00 Test Item Value Reference Range Comments POC-GLUCOSE METER (BEAKER) 193 mg/dL 70-[address] [facility] [address] [facility] (test luob=3162) [facility] [address] POCT-GLUCOSE [id number] 12:02:00 Test Item Value Reference Range Comments POC-GLUCOSE METER (BEAKER) 234 mg/dL 70-[address] [facility] [address] [facility] (test waoh=6387) [facility] [address] POCT-GLUCOSE [id number] 12:02:00 Test Item Value Reference Range Comments POC-GLUCOSE METER (BEAKER) 211 mg/dL 70-110 TESTED AT [place] [id number] [facility] (test tccw=3988) [facility] [address] U/S, RENAL, [id number] 08:45:00Reason for exam:->CKDFINAL REPORT TECHNIQUE: Grayscale ultrasound [...] Verified Date/Time: 08/02/2018 08: 45:50 Reading Location: [address] Radiology Reading Room Electronically signedby: ROB NAVARRO MD on 08/02/2018 08:45 AMPOCT-GLUCOSE [id number] 08:25:00 Test Item Value Reference Range Comments POC-GLUCOSE METER (BEAKER) 237 mg/dL 70-110 TESTED AT [address] (test iybk=8945) [facility] [address] [id number] 08:19:00 Test Item Value Reference Range Comments PARTIAL THROMBOPLASTIN TIME (BEAKER) (test 38.2 seconds 22.5-36.0 crhc=097) 4 hours after the start of continuous infusion and 4 hours after any rate changePOCT-GLUCOSE [id number] 07:14:00 Test Item Value Reference Range Comments POC-GLUCOSE METER (BEAKER) 246 mg/dL 70-110 TESTED AT [address] (test zmpd=7719) [facility] [address] COMPREHENSIVE METABOLIC [id number] 04:58:00 Test Item Value Reference Range Comments TOTAL PROTEIN (BEAKER) 5.5 gm/dL 6.0-8.3 Specimen slightly (test nonz=531) hemolyzed ALBUMIN (BEAKER) (test 3.1 g/dL 3.5-5.0 Specimen slightly bkqe=7449) hemolyzed ALKALINE PHOSPHATASE 54 U/L 40-150 (BEAKER) (test iwqc=598) BILIRUBIN TOTAL (BEAKER) 0.7 mg/dL 0.2-1.2 Specimen slightly (test jngp=223) hemolyzed SODIUM (BEAKER) (test 135 meq/L 136-145 hycz=917) POTASSIUM (BEAKER) (test 4.8 meq/L 3.5-5.1 Specimen slightly uzix=299) hemolyzed CHLORIDE (BEAKER) (test 108 meq/L 98-107 hqyk=781) CO2 (BEAKER) (test 18 meq/L 22-29 qisr=826) BLOOD UREA NITROGEN 57 mg/dL 7-21 (BEAKER) (test hylv=220) CREATININE (BEAKER) (test 2.27 mg/dL 0.57-1.25 Specimen slightly ohlo=552) hemolyzed GLUCOSE RANDOM (BEAKER) 289 mg/dL 70-105 (test rfmp=533) CALCIUM (BEAKER) (test 8.6 mg/dL 8.4-10.2 kwhu=766) AST (SGOT) (BEAKER) (test 94 U/L 5-34 Specimen slightly atuf=852) hemolyzed ALT (SGPT) (BEAKER) (test 20 U/L 6-55 Specimen slightly eebk=161) hemolyzed EGFR (BEAKER) (test 21 mL/min/1.73 sq m ESTIMATED GFR IS NOT uoni=0345) ACCURATE CREATININE CLEARANCE IN PREDICTING GLOMERULAR FILTRATION RATE. ESTIMATED GFR IS NOT APPLICABLE FOR DIALYSIS PATIENTS. [id number] 04:52:00 Test Item Value Reference Range Comments PARTIAL THROMBOPLASTIN TIME (BEAKER) (test 37.5 seconds 22.5-36.0 grxf=716) 4 hours after the start of continuous infusion and 4 hours after any rate changeRAD, CHEST, 1 VIEW, NON [id number] 04:44:00Reason for exam:-> impella positionShould this be [...] NATRIURETIC PEPTIDE (BEAKER) (test 1452 pg/mL 0-100 nmla=021) [id number] 04:40:00 Test Item Value Reference Range Comments MAGNESIUM (BEAKER) (test 2.0 mg/dL 1.6-2.6 Specimen slightly hemolyzed ikip=399) [id number] 04:40:00 Test Item Value Reference Range Comments PHOSPHORUS (BEAKER) (test 4.7 mg/dL 2.3-4.7 Specimen slightly hemolyzed vpcs=792) URIC [id number] 04:40:00 Test Item Value Reference Range Comments URIC ACID (BEAKER) (test 9.1 mg/dL 2.6-7.2 Specimen slightly hemolyzed hcty=093) LACTIC ACID, [id number] 04:31:00 Test Item Value Reference Range Comments LACTATE BLOOD ARTERIAL (2) 0.9 mmol/L 0.5-2.2 Specimen slightly hemolyzed (BEAKER) (test mkxc=8318) BLOOD GAS, [id number] 04:25:00 Test Item Value Reference Range Comments PH ARTERIAL (BEAKER) (test dcpt=782) 7.31 7.35-7.45 PCO2 ARTERIAL (BEAKER) (test igsi=371) 40 mmHg 35-45 PO2 ARTERIAL (BEAKER) (test zzmm=651) 90 mmHg 80-90 O2 SATURATION ARTERIAL (BEAKER) (test wtvn=598) 96.3 % 96.0-97.0 HCO3 ARTERIAL (BEAKER) (test clhv=922) 20 mmol/L 21-29 BASE EXCESS ARTERIAL (BEAKER) (test cnkk=016) -6.1 mmol/L -2.0-3.0 PATIENT TEMPERATURE (BEAKER) (test opyu=9015) 36.7 C FIO2 (BEAKER) (test amta=2452) 36.0 % GLUCOSE-STAT [id number] 04:25:00 Test Item Value Reference Range Comments GLUCOSE RANDOM (BEAKER) (test prtv=599) 272 mg/dL 70-110 HGB/HCT (H&H) - STAT [id number] 04:25:00 Test Item Value Reference Range Comments HEMOGLOBIN (BEAKER) (test xrws=112) 10.9 g/dL 12.0-15.0 HEMATOCRIT (BEAKER) (test emuj=034) 32.0 % 36.0-45.0 CBC W/PLT COUNT & AUTO [id number] 04:24:00 Test Item Value Reference Range Comments WHITE BLOOD CELL COUNT (BEAKER) (test zfyx=281) 14.8 K/ L 3.5-10.5 RED BLOOD CELL COUNT (BEAKER) (test uewt=043) 3.43 M/ L 3.93-5.22 HEMOGLOBIN (BEAKER) (test frsf=080) 10.3 GM/DL 11.2-15.7 HEMATOCRIT (BEAKER) (test qbdy=058) 32.3 % 34.1-44.9 MEAN CORPUSCULAR VOLUME (BEAKER) (test fcsj=375) 94.2 fL 79.4-94.8 MEAN CORPUSCULAR HEMOGLOBIN (BEAKER) (test 30.0 pg 25.6-32.2 ysjq=412) MEAN CORPUSCULAR HEMOGLOBIN CONC (BEAKER) (test 31.9 GM/DL 32.2-35.5 pwxx=544) RED CELL DISTRIBUTION WIDTH (BEAKER) (test 13.2 % 11.7-14.4 nytj=336) PLATELET COUNT (BEAKER) (test they=127) 171 K/CU MM 150-450 MEAN PLATELET VOLUME (BEAKER) (test fkht=119) 10.1 fL 9.4-12.3 NUCLEATED RED BLOOD CELLS (BEAKER) (test 0 /100 WBC 0-0 mrmh=562) NEUTROPHILS RELATIVE PERCENT (BEAKER) (test 84 % gdzk=892) LYMPHOCYTES RELATIVE PERCENT (BEAKER) (test 9 % qlnf=391) MONOCYTES RELATIVE PERCENT (BEAKER) (test 7 % adla=710) EOSINOPHILS RELATIVE PERCENT (BEAKER) (test 0 % flcy=759) BASOPHILS RELATIVE PERCENT (BEAKER) (test 0 % oghs=539) NEUTROPHILS ABSOLUTE COUNT (BEAKER) (test 12.38 K/ L 1.56-6.13 wbpx=666) LYMPHOCYTES ABSOLUTE COUNT (BEAKER) (test 1.30 K/ L 1.18-3.74 puyw=077) MONOCYTES ABSOLUTE COUNT (BEAKER) (test 1.04 K/ L 0.24-0.36 ghth=436) EOSINOPHILS ABSOLUTE COUNT (BEAKER) (test 0.00 K/ L 0.04-0.36 jdkr=340) BASOPHILS ABSOLUTE COUNT (BEAKER) (test 0.02 K/ L 0.01-0.08 fkcd=376) IMMATURE GRANULOCYTES-RELATIVE PERCENT (BEAKER) 1 % 0-1 (test kvcq=9561) CALCIUM, [id number] 04:22:00 Test Item Value Reference Range Comments CALCIUM IONIZED (BEAKER) (test qqpj=118) 1.20 mmol/L 1.12-1.27 PH, BLOOD (BEAKER) (test icxf=4347) 7.31 SODIUM NA-STAT [id number] 04:21:00 Test Item Value Reference Range Comments SODIUM (BEAKER) (test sear=598) 136 meq/L 135-148 POTASSIUM-STAT [id number] 04:21:00 Test Item Value Reference Range Comments POTASSIUM (BEAKER) (test cgvh=319) 4.6 meq/L 3.6-5.5 LACTIC ACID, [id number] 00:13:00 Test Item Value Reference Range Comments LACTATE BLOOD ARTERIAL (2) (BEAKER) (test 0.7 mmol/L 0.5-2.2 tfzs=9048) SODIUM NA-STAT [id number] 23:59:00 Test Item Value Reference Range Comments SODIUM (BEAKER) (test azlg=046) 136 meq/L 135-148 POTASSIUM-STAT [id number] 23:59:00 Test Item Value Reference Range Comments POTASSIUM (BEAKER) (test yhdq=999) 4.8 meq/L 3.6-5.5 BLOOD GAS, [id number] 23:59:00 Test Item Value Reference Range Comments PH ARTERIAL (BEAKER) (test wxdu=066) 7.31 7.35-7.45 PCO2 ARTERIAL (BEAKER) (test tygt=796) 42 mmHg 35-45 PO2 ARTERIAL (BEAKER) (test wudb=483) 78 mmHg 80-90 O2 SATURATION ARTERIAL (BEAKER) (test gnmv=729) 94.7 % 96.0-97.0 HCO3 ARTERIAL (BEAKER) (test rrqu=555) 21 mmol/L 21-29 BASE EXCESS ARTERIAL (BEAKER) (test hsdc=054) -5.2 mmol/L -2.0-3.0 PATIENT TEMPERATURE (BEAKER) (test kmwr=0108) 36.7 C FIO2 (BEAKER) (test dkfx=7007) 36.0 % GLUCOSE-STAT [id number] 23:59:00 Test Item Value Reference Range Comments GLUCOSE RANDOM (BEAKER) (test gowd=884) 275 mg/dL 70-110 HGB/HCT (H&H) - STAT [id number] 23:59:00 Test Item Value Reference Range Comments HEMOGLOBIN (BEAKER) (test zuwk=543) 11.3 g/dL 12.0-15.0 HEMATOCRIT (BEAKER) (test pouf=488) 33.0 % 36.0-45.0 [id number] 21:53:00 Test Item Value Reference Range Comments PARTIAL THROMBOPLASTIN TIME (BEAKER) (test 63.4 seconds 22.5-36.0 rpqe=175) 4 hours after the start of continuous infusion and 4 hours after any rate changeCOMPREHENSIVE METABOLIC [id number] 19:43:00 Test Item Value Reference Range Comments TOTAL PROTEIN (BEAKER) 5.8 gm/dL 6.0-8.3 Specimen slightly (test fpgn=792) hemolyzed ALBUMIN (BEAKER) (test 3.3 g/dL 3.5-5.0 Specimen slightly vcgp=7878) hemolyzed ALKALINE PHOSPHATASE 57 U/L 40-150 (BEAKER) (test ycnh=730) BILIRUBIN TOTAL (BEAKER) 0.9 mg/dL 0.2-1.2 Specimen slightly (test sfqy=000) hemolyzed SODIUM (BEAKER) (test 137 meq/L 136-145 rdko=832) POTASSIUM (BEAKER) (test 4.8 meq/L 3.5-5.1 Specimen slightly vumn=931) hemolyzed CHLORIDE (BEAKER) (test 109 meq/L 98-107 gtjc=727) CO2 (BEAKER) (test 20 meq/L 22-29 tkeh=623) BLOOD UREA NITROGEN 56 mg/dL 7-21 (BEAKER) (test dlra=065) CREATININE (BEAKER) (test 2.26 mg/dL 0.57-1.25 Specimen slightly uklm=656) hemolyzed GLUCOSE RANDOM (BEAKER) 235 mg/dL 70-105 (test khxb=003) CALCIUM (BEAKER) (test 9.2 mg/dL 8.4-10.2 zcty=083) AST (SGOT) (BEAKER) (test 27 U/L 5-34 Specimen slightly sfnc=874) hemolyzed ALT (SGPT) (BEAKER) (test 13 U/L 6-55 Specimen slightly wnwv=976) hemolyzed EGFR (BEAKER) (test 21 mL/min/1.73 sq m ESTIMATED GFR IS NOT keif=5504) ACCURATE CREATININE CLEARANCE IN PREDICTING GLOMERULAR FILTRATION RATE. ESTIMATED GFR IS NOT APPLICABLE FOR DIALYSIS PATIENTS. Call k > 5, [id number] 19:41:00 Test Item Value Reference Range Comments SODIUM (BEAKER) (test ryqa=648) 137 meq/L 136-145 POTASSIUM (BEAKER) (test 4.8 meq/L 3.5-5.1 Specimen slightly hemolyzed vktk=137) CHLORIDE (BEAKER) (test 109 meq/L 98-107 adhr=311) CO2 (BEAKER) (test crxn=832) 20 meq/L - Call k > 5, [id number] 19:37:00 Test Item Value Reference Range Comments PROTIME (BEAKER) (test krnu=621) 33.9 seconds 11.9-14.2 INR (BEAKER) (test uhgh=649) 3.6 <=5.9 PARTIAL THROMBOPLASTIN TIME (BEAKER) (test 85.5 seconds 22.5-36.0 lwqs=510) Effective 07/18/2018: PT Reference Range ChangeNew: 11.9-14.2 Previous: 11.7- 14.7RECOMMENDED COUMADIN/WARFARIN INR THERAPY RANGESSTANDARD DOSE: 2.0-3.0 Includes: PROPHYLAXIS for venous thrombosis, systemic embolization; TREATMENT for venous thrombosis and/or pulmonary embolus.HIGH RISK: Target INR is2.5-3.5 for patients wiht mechanical heart valves.[id number] 19:36:00 Test Item Value Reference Range Comments FIBRINOGEN LEVEL (BEAKER) (test belw=235) 336 mg/dl 225-434 LACTIC ACID, [id number] 19:34:00 Test Item Value Reference Range Comments LACTATE BLOOD ARTERIAL (2) 1.3 mmol/L 0.5-2.2 Specimen slightly hemolyzed (BEAKER) (test stwx=2007) CBC (HEMOGRAM ONLY)[id number] 19:23:00 Test Item Value Reference Range Comments WHITE BLOOD CELL COUNT (BEAKER) (test efwo=683) 14.1 K/ L 3.5-10.5 RED BLOOD CELL COUNT (BEAKER) (test kzwu=716) 3.68 M/ L 3.93-5.22 HEMOGLOBIN (BEAKER) (test drkl=826) 11.3 GM/DL 11.2-15.7 HEMATOCRIT (BEAKER) (test diro=820) 34.6 % 34.1-44.9 MEAN CORPUSCULAR VOLUME (BEAKER) (test caox=280) 94.0 fL 79.4-94.8 MEAN CORPUSCULAR HEMOGLOBIN (BEAKER) (test 30.7 pg 25.6-32.2 cgjc=679) MEAN CORPUSCULAR HEMOGLOBIN CONC (BEAKER) (test 32.7 GM/DL 32.2-35.5 nfnu=182) RED CELL DISTRIBUTION WIDTH (BEAKER) (test 13.1 % 11.7-14.4 yhli=440) PLATELET COUNT (BEAKER) (test ylgj=041) 207 K/CU MM 150-450 MEAN PLATELET VOLUME (BEAKER) (test tzry=052) 9.9 fL 9.4-12.3 NUCLEATED RED BLOOD CELLS (BEAKER) (test 0 /100 WBC 0-0 vdpm=119) BLOOD GAS, [id number] 19:16:00 Test Item Value Reference Range Comments PH ARTERIAL (BEAKER) (test wism=206) 7.35 7.35-7.45 PCO2 ARTERIAL (BEAKER) (test tcol=022) 39 mmHg 35-45 PO2 ARTERIAL (BEAKER) (test xlln=447) 50 mmHg 80-90 O2 SATURATION ARTERIAL (BEAKER) (test viyb=996) 84.5 % 96.0-97.0 HCO3 ARTERIAL (BEAKER) (test fzic=239) 21 mmol/L 21-29 BASE EXCESS ARTERIAL (BEAKER) (test mrjp=523) -4.5 mmol/L -2.0-3.0 PATIENT TEMPERATURE (BEAKER) (test tltk=6388) 36.7 C FIO2 (BEAKER) (test bvad=8403) 36.0 % GLUCOSE-STAT [id number] 19:16:00 Test Item Value Reference Range Comments GLUCOSE RANDOM (BEAKER) (test dgiq=995) 231 mg/dL 70-110 HGB/HCT (H&H) - STAT [id number] 19:16:00 Test Item Value Reference Range Comments HEMOGLOBIN (BEAKER) (test gpgl=893) 11.5 g/dL 12.0-15.0 HEMATOCRIT (BEAKER) (test fpgz=254) 34.0 % 36.0-45.0 CALCIUM, [id number] 19:15:00 Test Item Value Reference Range Comments CALCIUM IONIZED (BEAKER) (test hxwb=016) 1.26 mmol/L 1.12-1.27 PH, BLOOD (BEAKER) (test vlds=4920) 7.35 OXYGEN SATURATION, [id number] 19:14:00 Test Item Value Reference Range Comments O2 SATURATION (MEASURED) (BEAKER) (test sbje=7412) 41.9 % SODIUM NA-STAT [id number] 19:14:00 Test Item Value Reference Range Comments SODIUM (BEAKER) (test rzff=646) 138 meq/L 135-148 POTASSIUM-STAT [id number] 19:14:00 Test Item Value Reference Range Comments POTASSIUM (BEAKER) (test couo=665) 4.7 meq/L 3.6-5.5 [id number] 16:45:00 Test Item Value Reference Range Comments ACTIVATED CLOTTING TIME 389 sec TESTED AT [address] (BEAKER) (test taqt=026) [facility] [address] HEMOGLOBIN AND [id number] 16:38:00 Test Item Value Reference Range Comments HEMOGLOBIN (BEAKER) (test ovtd=836) 10.1 GM/DL 11.2-15.7 HEMATOCRIT (BEAKER) (test jntk=924) 31.6 % 34.1-44.9 PLATELET AGGREGATION: FUNCTION [id number] 16:05:00 Test Item Value Reference Range Comments WEAK ADP RESULT(BEAKER) (test 34 % 60-91 inul=5725) PLATELET FUNCTION SCREEN 0-39% indicates marked platelet INTERP (BEAKER) (test dysfunction rxiy=3143) [id number] Talia Villarreal MD (BEAKER) (test rrha=8286) (electronic signature) PLATELET COUNT AGG (BEAKER) 186 K/CU MM 150-450 (test jglr=6300) Platelet Function Screen results may be falsely low with platelet counts<100, 000/cu mm.[id number] 15:02:00 Test Item Value Reference Range Comments ACTIVATED CLOTTING TIME [address] [facility] [address] [facility] (BEAKER) (test jdds=228) [facility] [address] POCT-GLUCOSE [id number] 12:17:00 Test Item Value Reference Range Comments POC-GLUCOSE METER (BEAKER) 103 mg/dL 70-110 TESTED AT [address] (test kmfv=7417) [place] [id number] POCT-GLUCOSE [id number] 08:18:00 Test Item Value Reference Range Comments POC-GLUCOSE METER (BEAKER) 388 mg/dL 70-110 TESTED AT [address] (test nvvh=3258) [place] [address] HEPATIC FUNCTION [id number] 08:09:00 Test Item Value Reference Range Comments TOTAL PROTEIN (BEAKER) (test 6.2 gm/dL 6.0-8.3 Specimen slightly hemolyzed pfzg=359) ALBUMIN (BEAKER) (test 3.4 g/dL 3.5-5.0 Specimen slightly hemolyzed uvam=2173) BILIRUBIN TOTAL (BEAKER) (test 0.4 mg/dL 0.2-1.2 Specimen slightly hemolyzed chih=567) BILIRUBIN DIRECT (BEAKER) (test 0.1 mg/dL 0.1-0.5 Specimen slightly hemolyzed eydi=664) ALKALINE PHOSPHATASE (BEAKER) 59 U/L 40-150 (test ygki=520) AST (SGOT) (BEAKER) (test 19 U/L 5-34 Specimen slightly hemolyzed vyes=515) ALT (SGPT) (BEAKER) (test 10 U/L 6-55 Specimen slightly hemolyzed vcsa=925) TROPONIN [id number] 06:39:00 Test Item Value Reference Range Comments TROPONIN I (BEAKER) (test rzkh=269) 0.26 ng/mL 0.00-0.03 Troponin I (TnI) levels [...] acidosis, acute neurological disease, and persistent tachyarrhythmia.POCT-GLUCOSE [id number] 06:36:00 Test Item Value Reference Range Comments POC-GLUCOSE METER (BEAKER) 415 mg/dL 70-110 TESTED AT [address] (test wwpd=5417) [place] [id number] BASIC METABOLIC [id number] 06:10:00 Test Item Value Reference Range Comments SODIUM (BEAKER) (test 135 meq/L 136-145 fbhe=906) POTASSIUM (BEAKER) (test 4.9 meq/L 3.5-5.1 Specimen slightly fbuv=707) hemolyzed CHLORIDE (BEAKER) (test 104 meq/L 98-107 wpkq=493) CO2 (BEAKER) (test 21 meq/L 22-29 viqi=273) BLOOD UREA NITROGEN 53 mg/dL 7-21 (BEAKER) (test tdor=725) CREATININE (BEAKER) (test 2.28 mg/dL 0.57-1.25 Specimen slightly ouwg=213) hemolyzed GLUCOSE RANDOM (BEAKER) 473 mg/dL 70-105 (test vxka=605) CALCIUM (BEAKER) (test 8.7 mg/dL 8.4-10.2 oeto=203) EGFR (BEAKER) (test 21 mL/min/1.73 sq m ESTIMATED GFR IS NOT vvuz=9942) ACCURATE CREATININE CLEARANCE IN PREDICTING GLOMERULAR FILTRATION RATE. ESTIMATED GFR IS NOT APPLICABLE FOR DIALYSIS PATIENTS. [id number] 06:03:00 Test Item Value Reference Range Comments MAGNESIUM (BEAKER) (test 2.2 mg/dL 1.6-2.6 Specimen slightly hemolyzed caov=082) THROMBIN [id number] 05:09:00 Test Item Value Reference Range Comments THROMBIN TIME (BEAKER) (test ilts=079) 64.9 secs 13.8-20.0 Draw baseline aPTT prior to [id number] 05:08:00 Test Item Value Reference Range Comments PARTIAL THROMBOPLASTIN TIME (BEAKER) (test 43.1 seconds 22.5-36.0 kjtd=034) Draw baseline aPTT prior to infusionPROTHROMBIN TIME/[id number] 05:07:00 Test Item Value Reference Range Comments PROTIME (BEAKER) (test xzbq=714) 15.0 seconds 11.9-14.2 INR (BEAKER) (test bewl=457) 1.2 <=5.9 Effective 07/18/2018: PT Reference Range ChangeNew: 11.9-14.2 Previous: 11.7- 14.7RECOMMENDED COUMADIN/WARFARIN INR THERAPY RANGESSTANDARD DOSE: 2.0-3.0 Includes: PROPHYLAXIS for venous thrombosis, systemic embolization; TREATMENT for venous thrombosis and/or pulmonary embolus.HIGH RISK: Target INR is2.5-3.5 for patients wiht mechanical heart valves.Draw baseline aPTT prior to infusionCBC W/PLT COUNT & AUTO [id number] 04:59:00 Test Item Value Reference Range Comments WHITE BLOOD CELL COUNT (BEAKER) (test wccb=323) 7.0 K/ L 3.5-10.5 RED BLOOD CELL COUNT (BEAKER) (test dgjy=182) 3.82 M/ L 3.93-5.22 HEMOGLOBIN (BEAKER) (test mjwq=594) 11.7 GM/DL 11.2-15.7 HEMATOCRIT (BEAKER) (test bqwe=269) 35.9 % 34.1-44.9 MEAN CORPUSCULAR VOLUME (BEAKER) (test zznk=408) 94.0 fL 79.4-94.8 MEAN CORPUSCULAR HEMOGLOBIN (BEAKER) (test 30.6 pg 25.6-32.2 vded=452) MEAN CORPUSCULAR HEMOGLOBIN CONC (BEAKER) (test 32.6 GM/DL 32.2-35.5 jkir=261) RED CELL DISTRIBUTION WIDTH (BEAKER) (test 12.8 % 11.7-14.4 zygv=311) PLATELET COUNT (BEAKER) (test ozjq=829) 225 K/CU MM 150-450 MEAN PLATELET VOLUME (BEAKER) (test kjbj=856) 10.5 fL 9.4-12.3 NUCLEATED RED BLOOD CELLS (BEAKER) (test 0 /100 WBC 0-0 vdzu=443) NEUTROPHILS RELATIVE PERCENT (BEAKER) (test 87 % aqwp=688) LYMPHOCYTES RELATIVE PERCENT (BEAKER) (test 10 % lulh=139) MONOCYTES RELATIVE PERCENT (BEAKER) (test 2 % htaf=256) EOSINOPHILS RELATIVE PERCENT (BEAKER) (test 0 % qdgh=067) BASOPHILS RELATIVE PERCENT (BEAKER) (test 0 % updz=988) NEUTROPHILS ABSOLUTE COUNT (BEAKER) (test 6.10 K/ L 1.56-6.13 snkt=148) LYMPHOCYTES ABSOLUTE COUNT (BEAKER) (test 0.72 K/ L 1.18-3.74 aalc=038) MONOCYTES ABSOLUTE COUNT (BEAKER) (test 0.14 K/ L 0.24-0.36 sblw=328) EOSINOPHILS ABSOLUTE COUNT (BEAKER) (test 0.00 K/ L 0.04-0.36 bcgr=553) BASOPHILS ABSOLUTE COUNT (BEAKER) (test 0.01 K/ L 0.01-0.08 iqwj=308) IMMATURE GRANULOCYTES-RELATIVE PERCENT (BEAKER) 1 % 0-1 (test xvrs=0784) RAD, CHEST, 1 VIEW, NON [id number] 04:33:00Reason for exam:->preopShould this be performed at the bedside?->YesFINAL REPORT RAD, CHEST, 1 VIEW, NON DEPT INDICATION: preop COMPARISON: Prior day's exam FINDINGS: Portable frontal view of the chest. IMPRESSION: Support Lines: Stable. Lungs and pleura: Unchanged airspace and pleural opacities. No pneumothorax.Heart and mediastinum: Stable contours. Additional findings: None. Signed: Desire Méndez Verified Date/Time: 08/01/2018 04:33:15 RAD , CHEST, 1 VIEW, NON [id number] 00:02:00Reason for exam:->Intraaortic balloon pump insertionShould this [...] MÉNDEZ MD on08/01/2018 12:02 AMTSH/FREE T4 IF [id number] 21:34:00 Test Item Value Reference Range Comments THYROID STIMULATING HORMONE (BEAKER) (test 0.99 uIU/mL 0.35-4.94 zuwb=953) TROPONIN [id number] 21:26:00 Test Item Value Reference Range Comments TROPONIN I (BEAKER) (test pdpl=945) 0.28 ng/mL 0.00-0.03 Troponin I (TnI) levels [...] NATRIURETIC PEPTIDE (BEAKER) (test 633 pg/mL 0-100 ltlv=192) RAD, CHEST, 1 VIEW, NON [id number] 21:20:00Reason for exam:->unstable anginaShould this be performed at the bedside?->YesFINAL REPORT Portable chest. HISTORY: Unstable angina. COMPARISON STUDY: Noneavailable. FINDINGS: The cardiac size is enlarged. There are bilateral increased interstitial markings with some atelectasis or fibrosis in the lung bases. No pleural effusion or pneumothorax is seen. Degenerative changes and osteopenia are seen. IMPRESSION: Cardiomegaly with increased interstitial markings. Signed: Jonathan Galeana MDR[facility] Verified Date/Time: 07/31/2018 21:20 :52 Reading Location: [place] [id number] Consult Reading Room [facility] METABOLIC [id number] 21:18:00 Test Item Value Reference Range Comments SODIUM (BEAKER) (test 137 meq/L 136-145 depe=292) POTASSIUM (BEAKER) (test 4.6 meq/L 3.5-5.1 ewmv=268) CHLORIDE (BEAKER) (test 104 meq/L 98-107 gegk=377) CO2 (BEAKER) (test 25 meq/L - rmmj=106) BLOOD UREA NITROGEN 47 mg/dL 7-21 (BEAKER) (test damt=710) CREATININE (BEAKER) (test 2.18 mg/dL 0.57-1.25 fykx=246) GLUCOSE RANDOM (BEAKER) 223 mg/dL 70-105 (test mczx=970) CALCIUM (BEAKER) (test 9.1 mg/dL 8.4-10.2 rsuw=679) EGFR (BEAKER) (test 22 mL/min/1.73 sq m ESTIMATED GFR IS NOT pgmd=7342) ACCURATE CREATININE CLEARANCE IN PREDICTING GLOMERULAR FILTRATION RATE. ESTIMATED GFR IS NOT APPLICABLE FOR DIALYSIS PATIENTS. HEPATIC FUNCTION [id number] 21:15:00 Test Item Value Reference Range Comments TOTAL PROTEIN (BEAKER) (test mafh=902) 6.8 gm/dL 6.0-8.3 ALBUMIN (BEAKER) (test ubdl=6297) 3.8 g/dL 3.5-5.0 BILIRUBIN TOTAL (BEAKER) (test gtgi=531) 0.6 mg/dL 0.2-1.2 BILIRUBIN DIRECT (BEAKER) (test ymgl=369) 0.3 mg/dL 0.1-0.5 ALKALINE PHOSPHATASE (BEAKER) (test rtmy=504) 67 U/L 40-150 AST (SGOT) (BEAKER) (test zybl=455) 14 U/L 5-34 ALT (SGPT) (BEAKER) (test hqlv=762) 10 U/L 6-55 [id number] 20:57:00 Test Item Value Reference Range Comments PARTIAL THROMBOPLASTIN TIME (BEAKER) (test 27.7 seconds 22.5-36.0 jrry=058) PROTHROMBIN [id number] 20:56:00 Test Item Value Reference Range Comments PROTIME (BEAKER) (test dmyu=394) 13.1 seconds 11.9-14.2 INR (BEAKER) (test vntn=563) 1.0 <=5.9 Effective 07/18/2018: PT Reference Range ChangeNew: 11.9-14.2 Previous: 11.7- 14.7RECOMMENDED COUMADIN/WARFARIN INR THERAPY RANGESSTANDARD DOSE: 2.0-3.0 Includes: PROPHYLAXIS for venous thrombosis, systemic embolization; TREATMENT for venous thrombosis and/or pulmonary embolus.HIGH RISK: Target INR is2.5-3.5 for patients wiht mechanical heart valves.CBC W/PLT COUNT & AUTO [id number] 20:50:00 Test Item Value Reference Range Comments WHITE BLOOD CELL COUNT (BEAKER) (test wnsq=815) 8.4 K/ L 3.5-10.5 RED BLOOD CELL COUNT (BEAKER) (test jjig=675) 4.23 M/ L 3.93-5.22 HEMOGLOBIN (BEAKER) (test tbsk=320) 13.0 GM/DL 11.2-15.7 HEMATOCRIT (BEAKER) (test dpuk=641) 41.2 % 34.1-44.9 MEAN CORPUSCULAR VOLUME (BEAKER) (test suoc=306) 97.4 fL 79.4-94.8 MEAN CORPUSCULAR HEMOGLOBIN (BEAKER) (test 30.7 pg 25.6-32.2 tvwd=472) MEAN CORPUSCULAR HEMOGLOBIN CONC (BEAKER) (test 31.6 GM/DL 32.2-35.5 ncyr=123) RED CELL DISTRIBUTION WIDTH (BEAKER) (test 12.8 % 11.7-14.4 mehh=062) PLATELET COUNT (BEAKER) (test acpk=962) 230 K/CU MM 150-450 MEAN PLATELET VOLUME (BEAKER) (test mkgx=360) 9.9 fL 9.4-12.3 NUCLEATED RED BLOOD CELLS (BEAKER) (test 0 /100 WBC 0-0 dhzh=260) NEUTROPHILS RELATIVE PERCENT (BEAKER) (test 87 % qqbb=584) LYMPHOCYTES RELATIVE PERCENT (BEAKER) (test 12 % xumr=999) MONOCYTES RELATIVE PERCENT (BEAKER) (test 1 % sali=809) EOSINOPHILS RELATIVE PERCENT (BEAKER) (test 0 % lrll=267) BASOPHILS RELATIVE PERCENT (BEAKER) (test 0 % tuxf=244) NEUTROPHILS ABSOLUTE COUNT (BEAKER) (test 7.32 K/ L 1.56-6.13 zklu=935) LYMPHOCYTES ABSOLUTE COUNT (BEAKER) (test 0.98 K/ L 1.18-3.74 cqzg=460) MONOCYTES ABSOLUTE COUNT (BEAKER) (test 0.08 K/ L 0.24-0.36 mtlu=492) EOSINOPHILS ABSOLUTE COUNT (BEAKER) (test 0.00 K/ L 0.04-0.36 ccvw=111) BASOPHILS ABSOLUTE COUNT (BEAKER) (test 0.01 K/ L 0.01-0.08 dhtg=052) IMMATURE GRANULOCYTES-RELATIVE PERCENT (BEAKER) 0 % 0-1 (test vlqx=5076) [id number] 19:45:00 Test Item Value Reference Range Comments TROPONIN-I (test 0.18 ng/mL 0.00-0.05 RESULTS CALLED TO SOLITARIO SCHUMACHER code=TROPI) AT 1945 07/28/18.Ligia MalloyCRIGUS L VALUE READ BACK BY NURSE AND VERIFIED BY TECH? Y<0.05 Normal0.06 - 0.39 Consistent with circulating Troponin with possible Myocardial injury.>0.40 Consistent with Myocardial injury extensive enough to conform with AMI as defined by WHO. COMPREHENSIVE METABOLIC [id number] 16:08:00 Test Item Value Reference Range Comments [...] 45-117 (test code=ALKP) - XR CHEST 1 [id number] 15:43:00 FAX: Rhett Jo Camps: ER St: REG Name: HENRIQUE ARECHIGA [facility]- Emergency Services : 1940 Age/S: 78/F [address] Unit #: [id number] Loc: [place], [place] [address] Phys: Rhett Sams MD Acct: [id number] Dis Date: Status: REG ER PHONE #: [phone] Exam Date: 07/28/2018 1527 FAX #: [phone] Reason: CP EXAMS: CPT CODE: [id number] XR CHEST 1 V 84622 Examination: Chest 1 view Location code: S17 [...] HESHAM FONG, RT,(R) ARRT Transcribed Date/Time/By: 07/28/2018 (2695) : [email or web address] Orig Print D/T: S: 07/28/2018 (6197) Automated exposure control, iterative reconstruction technique, and/ oradjustment of mA and/or kV according to patient's size was utilizedfor optimum radiation dose reduction. PAGE 1 Signed ReportTROPONIN I [id number] 15:37:00 Test Item Value Reference Range Comments TROPONIN I RAPID (test 0.03 NG/ML 0.00-0.08 0.00 - 0.08 Normal0.09 - code=TROPIRAP) 0.40 Indeterminate for AMI 0.41 and above Compatible with AMI CHEMISTRY 8 [id number] 15:36:00 Test Item Value Reference Range Comments [...] (test code=CREATBED) 2.6 MG/DL 0.6-1.0 CBC W/AUTO [id number] 15:34:00 Test Item Value Reference Range Comments [...]
--- OUTSIDE RECORDS SUMMARY | 2018-11-10 16:57 | XMS REPORT ---
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 Problem Type 2 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 Problem Cervical stenosis of spine M48.02 Active Problem Acute pain of left knee M25.562 Active Problem Mixed hyperlipidemia E78.2 Active Problem Pain, joint, knee, right M25.561 Active Assessment Recurrent UTI N39.0 Active Problem Adult BMI 36.0-36.9 kg/sq m [...] stent Z95.5 Active placement Problem Atherosclerosis of [place] coronary I25.10 Active artery Problem Chronic kidney disease (CKD), stage N18.4 Active IV (severe) Problem 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 Active classified elsewhere Medications Medication Code Code Instructions Start End Status Dosage System Date Date Tresiba [facility] 37943911479 200 UNIT/ML Active INJECT 10 UNITS FlexTouch SUBCUTANEOUSLY DAILY Cyanocobalamin [facility] [address]-51 1000 MCG Active 1 tablet Orally Once a day Vitamin D-3 [facility] 55084987649 5000 UNIT Active as directed Orally Aspir-Low [facility] 68779773169 81 MG Orally Active 1 tablet Once a day Calcitriol [facility] 02580019642 0.5 MCG Orally Active 1 capsule Once a day Cranberry [facility] 11883-48653 Active not defined Extract BD Pen Needle [facility] 76686760078 31G X 5 MM Active USE DIRECTED Mini U/F Tresiba [facility] 62327855682 200 UNIT/ML Active 10 units FlexTouch Subcutaneous daily Clopidogrel [facility] 40531983737 75 MG Orally Active 1 tablet Bisulfate Once a day Tradjenta [facility] 88974000771 5 MG Orally Active 1 tablet Once a day Amiodarone HCl [facility] 33031871430 200 MG Orally Active 1 tablet Once a day Bumex [facility] 31606690061 0.5 MG Orally Active as directed Lactobacillus ND 0 Active not defined Senna S [facility] 20928922574 8.6-50 MG Active 1 tablet in the Orally Once a evening as day needed Metoprolol [facility] 26189127411 25 MG Orally Active 1 tablet with Tartrate Twice a day food Nitrostat [facility] 00834445890 0.4 MG Active as directed Sublingual 3 doses within 15 minutes PRN CHEST PAIN Folic Acid [facility] 75785362536 1 MG Orally Active 1 tablet Once a day Thiamine HCl [facility] 26088030602 100 MG Orally Active 1 tablet Once a day Lipitor [facility] 13400223490 80 MG Orally Active 1 tablet Once a day Results No Known Results Summary Purpose eClinicalWorks Submission
[2018-11-10 17:45] LABS: Protime INR 0.96
[2018-11-10 17:47] LABS: Absolute Lymphocytes (CBC) 1.6 K/uL (0.7-4.9); Basophils % 0.4 % (0-1.3); Hematocrit 39.7 % (36.0-45.0); Lymphocytes % 25.3 % (15.3-44.8); MPV 9.2 fL (7.6-11.3); RBC Red Blood Cell Count 4.43 M/uL (3.86-4.86)
[2018-11-10 18:00] LABS: Albumin 3.5 g/dL (3.4-5.0); Bilirubin Direct 0.1 mg/dL (0-0.2); Bilirubin Total 0.4 mg/dL (0.2-1.0); Magnesium 2.2 mg/dL (1.8-2.4); Potassium 3.9 mmol/L (3.5-5.1); Protein, Total 7.1 g/dL (6.4-8.2)
[2018-11-10 18:12] LABS: Troponin (Emerg Dept Use Only) 0.7 ng/mL (0.0-0.045)
[2018-11-10 18:49] LABS: Urine Bacteria <20 /HPF (<20); Urine Culture Reflex Order NOT NEEDED; Urine RBC <5 /HPF (NONE SEEN)
--- NOTE | 2018-11-10 18:52 | RAD REPORT ---
EXAM DESCRIPTION: RAD - Chest Single View - 11/10/2018 6:12 pm CLINICAL HISTORY: SOB Chest pain. COMPARISON: Chest Single View dated 09/20/2018; Chest Single View dated 09/14/2018; Chest Pa And Lat (2 Views) dated 09/11/2018; Chest Single View dated 09/10/2018 FINDINGS: Portable technique limits examination quality. The lungs are emphysematous but grossly clear. The heart is normal in size. No displaced fractures. IMPRESSION: COPD.
[2018-11-10] MEDS ORDERED: ASPIRIN 325 MG TAB ONE (19:12)
[2018-11-10] MEDS ORDERED: ENOXAPARIN 80 MG/0.8 ML SQ ONE (19:12)
--- NOTE | 2018-11-10 19:33 | EDPHYS ---
Physician Documentation [facility] Name: Suzan Gonzalez Age: 78 yrs Sex: Female : 1940 Arrival Date: 11/10/2018 Time: 16:50 Bed 17 Private MD: [place] [facility] ED Physician Larry Fernandez HPI: 11/10 17:35 This 78 yrs old Female presents to ER via Wheelchair with complaints of Back pm1 Pain, Shortness Of Breath, Palpitations. 17:35 The patient presents with pain that is acute, with no known mechanism of injury. The pm1 symptoms are located in the The symptoms are located in the thoracic area. 17:35 Onset: The symptoms/episode began/occurred 7 day(s) ago, and became worse 3 day(s) ago. pm1 The pain does not radiate. Associated signs and symptoms: Pertinent positives: headache, shortness of breath with exertion, Pertinent negatives: abdominal pain, chest pain, constipation, fever, nausea, vomiting. Modifying factors: the patient symptoms are aggravated by walking, causes shortness of breath. Severity of symptoms: in the emergency department the symptoms are actually worse. The patient has experienced a previous episode, and the symptoms today are exactly the same, when she had a heart attack. Patient with recent hospitalization at [facility] in July. Had 7 stents placed. Patient was initially hospitalized at [facility] and transferred for possible CABG due to difficulty with catheterization. The patient has been recently seen by a physician: Seen by her pe manager on Monday. Historical: - Allergies: 16:56 "every pain narcotic"; la1 16:56 Bactrim; la1 16:56 Benadryl; la1 16:56 Iodine; la1 16:56 Levaquin; la1 16:56 Morphine; la1 - PMHx: 16:56 angio; CHF; Diabetes - IDDM; Hypertension; Osteoporosis; POOR CIRCULATION; Renal la1 Disease; - Immunization history:: Adult Immunizations up to date. - Social history:: Smoking status: Patient/guardian denies using tobacco. - Ebola Screening: : No symptoms or risks identified at this time. ROS: 17:35 Constitutional: Negative for fever, chills, and weight loss, Eyes: Negative for injury, pm1 pain, redness, and discharge, ENT: Negative for injury, pain, and discharge, Neck: Negative for injury, pain, and swelling, Cardiovascular: Negative for chest pain, palpitations, and edema, Abdomen/GI: Negative for abdominal pain, nausea, vomiting, diarrhea, and constipation. 17:35 : Negative for injury, bleeding, discharge, and swelling, MS/Extremity: Negative for injury and deformity, Skin: Negative for injury, rash, and discoloration, Neuro: Negative for headache, weakness, numbness, tingling, and seizure. 17:35 Respiratory: Positive for shortness of breath, on exertion. 17:35 Back: Positive for pain at rest, Negative for decreased range of motion. Exam: 17:35 Constitutional: This is a well developed, well nourished patient who is awake, alert, pm1 and in no acute distress. Head/Face: Normocephalic, atraumatic. Eyes: Pupils equal round and reactive to light, extra-ocular motions intact. Lids and lashes normal. Conjunctiva and sclera are non-icteric and not injected. Cornea within normal limits. Periorbital areas with no swelling, redness, or edema. ENT: Nares patent. No nasal discharge, no septal abnormalities noted. Tympanic membranes are normal and external auditory canals are clear. Oropharynx with no redness, swelling, or masses, exudates, or evidence of obstruction, uvula midline. Mucous membranes moist. Neck: Trachea midline, no thyromegaly or masses palpated, and no cervical lymphadenopathy. Supple, full range of motion without nuchal rigidity, or vertebral point tenderness. No Meningismus. Chest/axilla: Normal chest wall appearance and motion. Nontender with no deformity. No lesions are appreciated. Cardiovascular: Regular rate and rhythm with a normal S1 and S2. No gallops, murmurs, or rubs. No pulse deficits. Respiratory: Lungs have equal breath sounds bilaterally, clear to auscultation and percussion. No rales, rhonchi or wheezes noted. No increased work of breathing, no retractions or nasal flaring. Abdomen/GI: Soft, non-tender, with normal bowel sounds. No distension or tympany. No guarding or rebound. No evidence of tenderness throughout. Back: No spinal tenderness. No costovertebral tenderness. Full range of motion. Skin: Warm, dry with normal turgor. Normal color with no rashes, no lesions, and no evidence of cellulitis. 17:35 Musculoskeletal/extremity: Extremities: all appear grossly normal, with no appreciated pain with palpation, Circulation is intact in all extremities. Sensation intact. 17:35 Neuro: Orientation: is normal, Motor: is normal, moves all fours. Vital Signs: 16:55 BP 142 / 49; Pulse 72; Resp 16; Temp 98.4(O); Pulse Ox 98% on R/A; Weight 72.12 kg; la1 Height 5 ft. 4 in. (162.56 cm); 17:59 BP 102 / 47; Pulse 67; Resp 16; Pulse Ox 99% on R/A; em 18:48 BP 125 / 59; Pulse 67; Resp 18; Pulse Ox 99% on R/A; Pain 4/10; em 19:20 BP 143 / 55; Pulse 67; Resp 17 S; Pulse Ox 98% on R/A; jd3 20:57 BP 153 / 54; Pulse 69; Resp 17 S; Pulse Ox 99% on R/A; jd3 22:09 BP 146 / 52; Pulse 69; Resp 19 S; Pulse Ox 98% on R/A; jd3 16:55 Body Mass Index 27.29 (72.12 kg, 162.56 cm) la1 MDM: 17:05 Patient medically screened. pm1 18:54 ED course: Discussed case with attending Jim BUENO and he recommended Aspirin, pm1 Lovenox, and admission. 19:30 Data reviewed: vital signs. Data interpreted: Pulse oximetry: on room air is 98 %. pm1 Interpretation: normal. Counseling: I had a detailed discussion with the patient and/or guardian regarding: the historical points, exam findings, and any diagnostic results supporting the discharge/admit diagnosis, lab results, radiology results, the need for further work-up and treatment in the hospital. 19:51 Physician consultation: Mino Hdez DO was contacted at 19:45, regarding admission, pm1 patient's condition, He consulted with Dr Montanez and Dr Montanez recommended transfer to [facility] because patient is a difficulty cardiac cath, had 7 stents placed in July, and the patient is allergic to Heparin. 19:51 ED course: Patient is not allergic to heparin and received it at [facility] center. 20:31 Physician consultation: Spencer Todd was contacted at 20:31, regarding regarding pm1 transfer, patient's condition, and will see patient in CCU. 11/10 17:16 Order name: Basic Metabolic Panel; Complete Time: 18:18 pm1 11/10 17:16 Order name: CBC with Diff; Complete Time: 18:03 pm1 11/10 17:16 Order name: LFT's; Complete Time: 18:18 pm1 11/10 17:16 Order name: Magnesium; Complete Time: 18:18 pm1 11/10 17:16 Order name: NT PRO-BNP; Complete Time: 18:18 pm1 11/10 17:16 Order name: PT-INR; Complete Time: 18:03 pm1 11/10 17:16 Order name: Troponin (emerg Dept Use Only); Complete Time: 18:18 pm1 11/10 17:16 Order name: XRAY Chest (1 view); Complete Time: 18:55 pm1 11/10 17:16 Order name: EKG; Complete Time: 17:17 pm1 11/10 17:28 Order name: Urine Microscopic Only; Complete Time: 18:51 pm1 11/10 19:26 Order name: Urine Dipstick--Ancillary (enter results); Complete Time: 19:41 ar5 11/10 17:16 Order name: Cardiac monitoring; Complete Time: 17:32 pm1 11/10 17:16 Order name: EKG - Nurse/Tech; Complete Time: 17:32 pm1 11/10 17:16 Order name: IV Saline Lock; Complete Time: 17:33 pm1 11/10 17:16 Order name: Labs collected and sent; Complete Time: 17:33 pm1 11/10 17:16 Order name: O2 Per Protocol; Complete Time: 17:33 pm1 11/10 17:16 Order name: O2 Sat Monitoring; Complete Time: 17:33 pm1 11/10 17:28 Order name: Urine Dipstick-Ancillary (obtain specimen); Complete Time: 18:30 pm1 Administered Medications: 18:10 Not Given (Physician Discretion): Nitroglycerin 0.4 mg Sublingual once; every five em minute if needed x3 19:19 Drug: Aspirin 325 mg Route: PO; jd3 20:15 Follow up: Response: No adverse reaction jd3 19:19 Drug: Lovenox 1 mg/kg Route: Sub-Q; Site: abdomen; jd3 20:15 Follow up: Response: No adverse reaction jd3 Disposition: 11/11 07:14 Co-signature as Attending Physician, Larry Fernandez MD. ma2 Disposition: 11/10/18 20:13 Transfer ordered to [facility]. Diagnosis is Non-ST elevation (NSTEMI) myocardial infarction. - Reason for transfer: Higher level of care. - Accepting physician is [facility]. - Condition is Stable. - Problem is new. - Symptoms have improved. Signatures: Dispatcher [employer] EDMS Jose Leon RN RN la1 Florin Boone NP CLOTHES DRIER ASSEMBLER pm1 Mark Funez RN RN jd3 Alzahri, Mohammad, MD MD ma2 Rob BroderickN em Corrections: (The following items were deleted from the chart) 11/10 20:13 19:32 Hospitalization Ordered by Mino Hdez DO for Inpatient Admission. Preliminary pm1 diagnosis is Non-ST elevation (NSTEMI) myocardial infarction. Bed requested for Telemetry/MedSurg (Inpatient). Status is Inpatient Admission. Condition is Stable. Problem is new. Symptoms have improved. UTI on Admission? No. pm1 21:11 17:35 The symptoms are located in the pm1 pm1 22:10 20:13 11/10/2018 20:13 Transfer ordered to [facility]. Diagnosis is jd3 Non-ST elevation (NSTEMI) myocardial infarction. Reason for transfer: Higher level of care. Accepting physician is [facility]. Condition is Stable. Problem is new. Symptoms have improved. pm1
--- NOTE | 2018-11-10 19:33 | ER ---
Nurse's Notes [facility] Name: Suzan Gonzalez Age: 78 yrs Sex: Female : 1940 Arrival Date: 11/10/2018 Time: 16:50 Bed 17 Private MD: John Perry Diagnosis: Non-ST elevation (NSTEMI) myocardial infarction Presentation: 11/10 16:57 Presenting complaint: Patient states: I have been having increasing fatigue, SOB. I la1 have been having upper back pain as well. Transition of care: patient was not received from another setting of care. Onset of symptoms was November 10, 2018. Risk Assessment: Do you want to hurt yourself or someone else? Patient reports no desire to harm self or others. Initial Sepsis Screen: Does the patient meet any 2 criteria? No. Patient's initial sepsis screen is negative. Does the patient have a suspected source of infection? No. Patient's initial sepsis screen is negative. Care prior to arrival: None. 16:57 Method Of Arrival: Wheelchair la1 16:57 Acuity: SERGIO 3 la1 Historical: - Allergies: 16:56 "every pain narcotic"; la1 16:56 Bactrim; la1 16:56 Benadryl; la1 16:56 Iodine; la1 16:56 Levaquin; la1 16:56 Morphine; la1 - PMHx: 16:56 angio; CHF; Diabetes - IDDM; Hypertension; Osteoporosis; POOR CIRCULATION; Renal la1 Disease; - Immunization history:: Adult Immunizations up to date. - Social history:: Smoking status: Patient/guardian denies using tobacco. - Ebola Screening: : No symptoms or risks identified at this time. Screenin:18 Abuse screen: Denies threats or abuse. Nutritional screening: No deficits noted. em Tuberculosis screening: No symptoms or risk factors identified. Fall Risk None identified. Assessment: 17:15 General: Appears in no apparent distress. comfortable, Behavior is calm, cooperative, em Denies fever. Pain: Complains of pain in thoracic area Pain currently is 8 out of 10 on a pain scale. Neuro: Level of Consciousness is awake, alert, obeys commands, Oriented to person, place, time, situation, Appropriate for age. Cardiovascular: Reports chest pain, Denies chest pain, Heart tones S1 S2 present Capillary refill < 3 seconds Patient's skin is warm and dry. Edema is absent. Rhythm is sinus rhythm. Respiratory: Reports shortness of breath on exertion Airway is patent Respiratory effort is even, unlabored, Respiratory pattern is regular, symmetrical, Breath sounds are clear bilaterally. GI: Abdomen is flat, Patient currently denies nausea, vomiting. Derm: Skin is intact, is healthy with good turgor, Skin is pink, warm \\T\\ dry. Musculoskeletal: Capillary refill < 3 seconds, Range of motion: intact in all extremities. 17:15 Reassessment: I agree with assessment completed by Rob Broderick LVN. aa5 18:10 Reassessment: Patient appears in no apparent distress at this time. Patient and/or em family updated on plan of care and expected duration. Pain level reassessed. Patient is alert, oriented x 3, equal unlabored respirations, skin warm/dry/pink. 19:21 General: Appears in no apparent distress. comfortable, Behavior is calm, cooperative, jd3 appropriate for age. Pain: Complains of pain in back Quality of pain is described as aching. Neuro: Level of Consciousness is awake, alert, obeys commands, Oriented to person, place, time, situation. Cardiovascular: Denies chest pain, Capillary refill < 3 seconds Patient's skin is warm and dry. Rhythm is regular. Respiratory: Airway is patent Respiratory effort is even, unlabored, Respiratory pattern is regular, symmetrical, Denies shortness of breath. GI: Abdomen is round non-distended, Patient currently denies nausea, vomiting. : No signs and/or symptoms were reported regarding the genitourinary system. EENT: No signs and/or symptoms were reported regarding the EENT system. Derm: Skin is intact, Skin is dry, Skin is normal, Skin temperature is warm. Musculoskeletal: Circulation, motion, and sensation intact. Range of motion: intact in all extremities. 21:03 Reassessment: Patient appears in no apparent distress at this time. Patient and/or jd3 family updated on plan of care and expected duration. Pain level reassessed. Patient is alert, oriented x 3, equal unlabored respirations, skin warm/dry/pink. report called to [facility] nurse: Hannah JEREZ Patient denies pain at this time. 22:09 Reassessment: Patient appears in no apparent distress at this time. Patient and/or jd3 family updated on plan of care and expected duration. Pain level reassessed. Patient is alert, oriented x 3, equal unlabored respirations, skin warm/dry/pink. report given to EMS Patient denies pain at this time. Vital Signs: 16:55 BP 142 / 49; Pulse 72; Resp 16; Temp 98.4(O); Pulse Ox 98% on R/A; Weight 72.12 kg; la1 Height 5 ft. 4 in. (162.56 cm); 17:59 BP 102 / 47; Pulse 67; Resp 16; Pulse Ox 99% on R/A; em 18:48 BP 125 / 59; Pulse 67; Resp 18; Pulse Ox 99% on R/A; Pain 4/10; em 19:20 BP 143 / 55; Pulse 67; Resp 17 S; Pulse Ox 98% on R/A; jd3 20:57 BP 153 / 54; Pulse 69; Resp 17 S; Pulse Ox 99% on R/A; jd3 22:09 BP 146 / 52; Pulse 69; Resp 19 S; Pulse Ox 98% on R/A; jd3 16:55 Body Mass Index 27.29 (72.12 kg, 162.56 cm) la1 ED Course: 16:50 Patient arrived in ED. as 16:51 John Perry DO is Private Physician. as 16:57 Arm band placed on right wrist. la1 16:58 Triage completed. la1 17:04 Florin Boone NP is PHCP. pm1 17:04 Larry Fernandez MD is Attending Physician. pm1 17:05 Rob Broderick LVN is Primary Nurse. em 17:19 Patient has correct armband on for positive identification. Call light in reach. Side em rails up X 1. Side rails up X2. Adult w/ patient. court recording monitor on. Pulse ox on. NIBP on. 17:25 Initial lab(s) drawn, by me, sent to lab. Inserted saline lock: 20 gauge in right em forearm, using aseptic technique. Blood collected. 18:11 X-ray completed. Portable x-ray completed in exam room. Patient tolerated procedure tm4 well. 18:14 XRAY Chest (1 view) In Process Unspecified. EDMS 19:31 Mino Hdez DO is Hospitalizing Provider. pm1 19:41 Primary Nurse role handed off by Rob Broderick LVN jd3 19:41 Mark Funez, SOLITARIO is Primary Nurse. jd3 21:02 No provider procedures requiring assistance completed. Patient transferred, IV remains jd3 in place. Administered Medications: 18:10 Not Given (Physician Discretion): Nitroglycerin 0.4 mg Sublingual once; every five em minute if needed x3 19:19 Drug: Aspirin 325 mg Route: PO; jd3 20:15 Follow up: Response: No adverse reaction jd3 19:19 Drug: Lovenox 1 mg/kg Route: Sub-Q; Site: abdomen; jd3 20:15 Follow up: Response: No adverse reaction jd3 Outcome: 19:32 Decision to Hospitalize by Provider. pm1 20:13 ER care complete, transfer ordered by MD. pm1 21:13 Condition: stable jd3 21:13 Instructed on the need for transfer, Demonstrated understanding of instructions. 22:10 Transferred by ground EMS to [facility], Transfer form completed. jd3 X-rays sent w/ patient. 22:10 Patient left the ED. jd3 Signatures: Dispatcher [employer] EDMS Elba Zhou tm4 Rob Broderick LVN LVN em Martinez, Amelia as Calderon, Audri, RN RN aa5 Jose Leon RN RN la1 Florin Boone, ETL ARCHITECT ETL ARCHITECT pm1 Mark Funez RN RN jd3
[2018-11-10 19:38] LABS: Urine Blood NEGATIVE (NEG); Urine Glucose 2+ (NEG); Urine Protein NEGATIVE (NEG); Urine pH 5.5 (5.0-7.0)
[2018-11-10 22:18] VITALS: TEMP 98.4
[2018-11-10 22:25] VITALS: BP 146/52; O2SAT 98
--- NOTE | 2018-11-11 13:20 | EKG ---
Test Date: 2018-11-10 Test Time: 17:19:01 [place]: MEASUREMENT RESULTS: Intervals: Rate: 68 AL: 176 QRSD: 102 QT: 466 QTc: 495 Sells: P: 49 AL: 176 QRS: 20 T: 108 INTERPRETIVE STATEMENTS: Normal sinus rhythm Nonspecific T wave abnormality Prolonged QT Abnormal ECG Compared to ECG 09/20/2018 22:04:42 T-wave abnormality now present Prolonged QT interval now present Myocardial infarct finding no longer present Electronically Signed On 11-11-18 13:18:36 CDT by Portillo Arteaga
== END 2018-11-10 22:10 | disposition short-term general hospital (02) ==
LOC: ER 16:49
DX: I21.4 Non-ST elevation (NSTEMI) myocardial infarction (principal); Z88.1 Allergy status to other antibiotic agents; Z91.09 Other allergy status, other than to drugs and biological substances; Z88.6 Allergy status to analgesic agent
CPT/HCPCS: 93005; 85025; 80048; 36415; 83735; 85610; 80076; 84484; 83880; 71045; 96372; 99285; J3010; J1650; 81003; 81015

== ENCOUNTER 2018-12-20 15:10 | Emergency (ER) | payer OTHER ==
[2011-04-02 04:06] VITALS: BP 131/61
[2018-12-20 15:56] LABS: Absolute Lymphocytes (CBC) 1.1 K/uL (0.7-4.9); Basophils % 0.6 % (0-1.3); Hematocrit 36.6 % (36.0-45.0); Lymphocytes % 13.7 % (15.3-44.8); MPV 8.7 fL (7.6-11.3); RBC Red Blood Cell Count 4.09 M/uL (3.86-4.86)
[2018-12-20 16:08] LABS: Protime INR 0.99
--- NOTE | 2018-12-20 16:11 | RAD REPORT ---
EXAM DESCRIPTION: RAD - Chest Single View - 12/20/2018 4:04 pm CLINICAL HISTORY: Chest pain COMPARISON: November 20 TECHNIQUE: AP portable chest image was obtained 1600 hours . FINDINGS: Lungs are clear. Heart and vasculature are normal. No measurable pleural effusion and no p neumothorax. No acute bony abnormality seen. No acute aortic findings suspected. IMPRESSION: No acute cardiopulmonary process. No significant interval change.
--- NOTE | 2018-12-20 16:14 | EKG ---
Test Date: 2018-12-20 Test Time: 15:21:44 Statistical Programmer: JACINTO MEASUREMENT RESULTS: Intervals: Rate: 86 IL: 170 QRSD: 96 QT: 414 QTc: 495 [place]: P: 96 IL: 170 QRS: 72 T: -24 INTERPRETIVE STATEMENTS: Normal sinus rhythm Nonspecific ST and T wave abnormality Abnormal ECG Compared to ECG 11/20/2018 11:45:40 ST (T wave) deviation now present T-wave abnormality no longer present Prolonged QT interval no longer present Electronically Signed On 12-20-18 16:14:30 CDT by Solomon Rothman
[2018-12-20 16:36] LABS: Albumin 3.6 g/dL (3.4-5.0); Bilirubin Direct 0.1 mg/dL (0-0.2); Bilirubin Total 0.5 mg/dL (0.2-1.0); Magnesium 2.1 mg/dL (1.8-2.4); Potassium 3.6 mmol/L (3.5-5.1); Protein, Total 7.5 g/dL (6.4-8.2)
[2018-12-20 16:39] LABS: Troponin (Emerg Dept Use Only) 0.59 ng/mL (0.0-0.045)
[2018-12-20] MEDS ORDERED: ASPIRIN 81 MG CHEWABLE TABLET ONE (16:39)
--- NOTE | 2018-12-20 18:53 | ER ---
Nurse's Notes [facility] Name: Suzan Gonzalez Age: 78 yrs Sex: Female : 1940 Arrival Date: 12/20/2018 Time: 15:36 Bed 2 Private MD: Diagnosis: NSTEMI Presentation: 12/20 15:18 Note See paper chart for triage. aa5 15:20 Initial Sepsis Screen: Does the patient meet any 2 criteria? No. Patient's initial aa5 sepsis screen is negative. Does the patient have a suspected source of infection? No. Patient's initial sepsis screen is negative. Historical: - Allergies: 15:20 "every pain narcotic"; aa5 15:20 Bactrim; aa5 15:20 Benadryl; aa5 15:20 Iodine; aa5 15:20 Levaquin; aa5 15:20 Levofloxacin; aa5 15:20 Morphine; aa5 15:20 Sulfa (Sulfonamide Antibiotics); aa5 - PMHx: 15:20 angio; CHF; Diabetes - IDDM; Hypertension; kidney failure; Osteoporosis; POOR aa5 CIRCULATION; Renal Disease; TIA; Myocardial infarction; - PSHx: 15:20 Heart stents; aa5 - Immunization history:: Adult Immunizations unknown. - Social history:: Smoking status: Patient/guardian denies using tobacco. - Ebola Screening: : No symptoms or risks identified at this time. Screenin:30 Abuse screen: Denies threats or abuse. Nutritional screening: No deficits noted. aa5 Tuberculosis screening: No symptoms or risk factors identified. Fall Risk None identified. Assessment: 15:20 General: Appears comfortable, Behavior is calm, cooperative. Pain: Complains of pain in aa5 anterior aspect of left upper chest Pain radiates to left arm and mid back Pain currently is 8 out of 10 on a pain scale. Quality of pain is described as aching, dull, Pain began 1 day ago. Is continuous. Neuro: Level of Consciousness is awake, alert, obeys commands, Oriented to person, place, time, situation. Cardiovascular: Heart tones S1 S2 present Rhythm is sinus rhythm. Respiratory: Airway is patent Respiratory effort is even, unlabored, Respiratory pattern is regular, symmetrical, Breath sounds are clear bilaterally. Denies cough, shortness of breath. GI: Abdomen is round non-distended, Bowel sounds present X 4 quads. Abd is soft and non tender X 4 quads. Patient currently denies nausea, vomiting. : No signs and/or symptoms were reported regarding the genitourinary system. EENT: No signs and/or symptoms were reported regarding the EENT system. Derm: Skin is pink, warm \\T\\ dry. Musculoskeletal: Range of motion: intact in all extremities. 16:41 Reassessment: Patient is alert, oriented x 3, equal unlabored respirations, skin aa5 warm/dry/pink. Pt sitting up in bed. Pt's family at bedside. Denies any complaints at this time. Awaiting disposition. . 18:00 Reassessment: Patient is alert, oriented x 3, equal unlabored respirations, skin aa5 warm/dry/pink. Pt assisted with bedpan, pt voided 200cc. . 18:52 Reassessment: Patient is alert, oriented x 3, equal unlabored respirations, skin aa5 warm/dry/pink. Vital Signs: 16:00 BP 155 / 98; Pulse 80; Resp 16 S; Temp 98.0(TE); Pulse Ox 98% on R/A; aa5 17:00 BP 153 / 95; Pulse 78; Resp 16 S; Pulse Ox 99% on R/A; aa5 18:00 BP 136 / 84; Pulse 77; Resp 18 S; Pulse Ox 99% on R/A; aa5 ED Course: 15:20 Patient has correct armband on for positive identification. Placed in gown. Bed in low aa5 position. Call light in reach. Side rails up X2. Adult w/ patient. cardiac monitor on. Pulse ox on. NIBP on. 15:36 Patient arrived in ED. aa5 15:36 Soledad Goodman, RN is Primary Nurse. aa5 15:38 Initial lab(s) drawn, by me, sent to lab. Inserted saline lock: 20 gauge in right aa5 antecubital area, using aseptic technique. Blood collected. 15:38 No provider procedures requiring assistance completed. Patient maintains SpO2 aa5 saturation greater than 95% on room air. 15:57 Emil Mckeon PA is PHCP. jr8 15:57 Suraj Barkley MD is Attending Physician. jr8 16:33 XRAY Chest (1 view) In Process Unspecified. EDMS Administered Medications: 16:41 Drug: Aspirin Chewable Tablet 324 mg Route: PO; aa5 18:20 Follow up: Response: No adverse reaction aa5 Outcome: 18:52 ER care complete, transfer ordered by . aa5 18:52 Patient left the ED. aa5 18:52 Transferred by ground EMS to [facility], Transfer form completed. aa5 X-rays sent w/ patient. Note: Report given to Florin with [facility] 18:52 Condition: stable 18:52 Instructed on the need for transfer, Demonstrated understanding of instructions. aa5 Signatures: Dispatcher [employer] Soledad Bajwa RN RN aa5 Emil Mckeon PA PA jr8
== END 2018-12-20 18:52 | disposition short-term general hospital (02) ==
LOC: ER 15:10
DX: I21.4 Non-ST elevation (NSTEMI) myocardial infarction (principal)
CPT/HCPCS: 36415; 71045; 80048; 80076; 82553; 83735; 83880; 84484; 85025; 85610; 93005; 99285

== ENCOUNTER 2019-01-25 11:05 | Emergency (ER) | payer OTHER ==
--- OUTSIDE RECORDS SUMMARY | 2019-01-25 11:14 | XMS REPORT ---
:1940 Author Organization [facility] Address [address] [place] [address] [address] [place] [address] Care Team Providers Name Role Phone DARION AUGUSTINE Unavailable Unavailable SISSY CORTES Unavailable Unavailable KHANG STUART Unavailable Unavailable Payers Payer Name Policy Type Policy Number Effective Date Expiration Date Problems This patient has no known problems. Allergies, Adverse Reactions, Alerts Allergy Allergy Status Severity Reaction(s) Onset Inactive Treating Comments Name Type Date Date Clinician iodine DA Active 2018-07 00:00:0 0 morphine DA Active 2018-07 00:00:0 0 Medications This patient has no known medications. Results Test Description Test Time Test Comments Text Results Atomic Results Result Comments POCT-GLUCOSE METER 2018-12-25 12:57:00 Test Item Value Reference Range Comments POC-GLUCOSE METER ([place]) 318 mg/dL 70-110 : TESTED AT [address] (test hwmx=6206) [place], [address]: Residential Finish Carpenter/Parts Facilitator [id number] for MICHAEL LEX POCT-GLUCOSE [id number] 08:08:00 Test Item Value Reference Range Comments POC-GLUCOSE METER ([place]) 263 mg/dL 70-110 : TESTED AT [address] (test tjmf=3819) [facility], [address]: Residential Finish Carpenter/Parts Facilitator [id number] for NOVA PERSAUD CBC W/PLT COUNT & AUTO [id number] 05:21:00 Test Item Value Reference Range Comments WHITE BLOOD CELL COUNT (BEAKER) (test ihbv=363) 6.6 K/ L 3.5-10.5 RED BLOOD CELL COUNT (BEAKER) (test cupn=173) 4.03 M/ L 3.93-5.22 HEMOGLOBIN (BEAKER) (test ukpi=784) 12.0 GM/DL 11.2-15.7 HEMATOCRIT (BEAKER) (test qubb=744) 37.8 % 34.1-44.9 MEAN CORPUSCULAR VOLUME (BEAKER) (test dhhs=069) 93.8 fL 79.4-94.8 MEAN CORPUSCULAR HEMOGLOBIN (BEAKER) (test 29.8 pg 25.6-32.2 rcdu=917) MEAN CORPUSCULAR HEMOGLOBIN CONC (BEAKER) (test 31.7 GM/DL 32.2-35.5 quso=259) RED CELL DISTRIBUTION WIDTH (BEAKER) (test 15.8 % 11.7-14.4 hxae=590) PLATELET COUNT (BEAKER) (test ungl=693) 226 K/CU MM 150-450 MEAN PLATELET VOLUME (BEAKER) (test uecc=723) 10.5 fL 9.4-12.3 NUCLEATED RED BLOOD CELLS (BEAKER) (test 0 /100 WBC 0-0 gbob=492) NEUTROPHILS RELATIVE PERCENT (BEAKER) (test 82 % kaqv=289) LYMPHOCYTES RELATIVE PERCENT (BEAKER) (test 15 % bslh=214) MONOCYTES RELATIVE PERCENT (BEAKER) (test 1 % uiqw=328) EOSINOPHILS RELATIVE PERCENT (BEAKER) (test 0 % ihrp=270) BASOPHILS RELATIVE PERCENT (BEAKER) (test 0 % nace=623) NEUTROPHILS ABSOLUTE COUNT (BEAKER) (test 5.38 K/ L 1.56-6.13 uirb=151) LYMPHOCYTES ABSOLUTE COUNT (BEAKER) (test 1.01 K/ L 1.18-3.74 liaj=795) MONOCYTES ABSOLUTE COUNT (BEAKER) (test 0.08 K/ L 0.24-0.36 icoe=335) EOSINOPHILS ABSOLUTE COUNT (BEAKER) (test 0.00 K/ L 0.04-0.36 igln=984) BASOPHILS ABSOLUTE COUNT (BEAKER) (test 0.02 K/ L 0.01-0.08 yllk=451) IMMATURE GRANULOCYTES-RELATIVE PERCENT (BEAKER) 1 % 0-1 (test luwf=9194) BASIC METABOLIC [id number] 05:18:00 Test Item Value Reference Range Comments SODIUM (BEAKER) (test 137 meq/L 136-145 xqng=763) POTASSIUM (BEAKER) (test 4.3 meq/L 3.5-5.1 vtcd=927) CHLORIDE (BEAKER) (test 100 meq/L 98-107 uvcw=742) CO2 (BEAKER) (test 27 meq/L 22-29 nqgx=954) BLOOD UREA NITROGEN 74 mg/dL 7-21 (BEAKER) (test hduy=942) CREATININE (BEAKER) (test 2.85 mg/dL 0.57-1.25 rvqj=743) GLUCOSE RANDOM (BEAKER) 266 mg/dL 70-105 (test imqd=071) CALCIUM (BEAKER) (test 9.5 mg/dL 8.4-10.2 acgx=481) EGFR (BEAKER) (test 16 mL/min/1.73 sq m ESTIMATED GFR IS NOT rjox=9209) ACCURATE CREATININE CLEARANCE IN PREDICTING GLOMERULAR FILTRATION RATE. ESTIMATED GFR IS NOT APPLICABLE FOR DIALYSIS PATIENTS. [id number] 05:17:00 Test Item Value Reference Range Comments PHOSPHORUS (BEAKER) (test vzga=467) 4.4 mg/dL 2.3-4.7 [id number] 05:17:00 Test Item Value Reference Range Comments MAGNESIUM (BEAKER) (test yqjj=952) 2.0 mg/dL 1.6-2.6 B-TYPE NATRIURETIC FACTOR (BNP)2018-12-25 04:55:00 Test Item Value Reference Range Comments B-TYPE NATRIURETIC PEPTIDE (BEAKER) (test 775 pg/mL 0-100 jovv=298) CALCIUM, [id number] 04:45:00 Test Item Value Reference Range Comments CALCIUM IONIZED (BEAKER) (test cdlk=688) 1.16 mmol/L 1.12-1.27 PH, BLOOD (BEAKER) (test wtoa=4494) 7.32 POCT-GLUCOSE [id number] 23:15:00 Test Item Value Reference Range Comments POC-GLUCOSE METER (BEAKER) 280 mg/dL 70-110 : Notified RN/MD: TESTED AT (test xapp=7441) [facility] [address] [facility], [address]: Residential Finish Carpenter/Parts Facilitator [id number] for GULSHAN GILMORE POCT-GLUCOSE [id number] 23:13:00 Test Item Value Reference Range Comments POC-GLUCOSE METER (BEAKER) 179 mg/dL 70-110 : TESTED AT [address] (test zhln=0022) [facility], [address]: Residential Finish Carpenter/Parts Facilitator [id number] for GULSHAN GILMORE [id number] 22:12:00 Test Item Value Reference Range Comments ACTIVATED CLOTTING TIME 147 sec Reference Range: 74-137 (BEAKER) (test iqgg=646) seconds, Baseline/TESTED AT [address] [address] [id number] 17:58:00 Test Item Value Reference Range Comments ACTIVATED CLOTTING TIME 257 sec Reference Range: 74-137 (BEAKER) (test peug=739) seconds, Baseline/TESTED AT [address] [address] [id number] 17:57:00 Test Item Value Reference Range Comments ACTIVATED CLOTTING TIME 252 sec Reference Range: 74-137 (BEAKER) (test vwoz=839) seconds, Baseline/TESTED AT [address] [address] POCT-GLUCOSE [id number] 12:58:00 Test Item Value Reference Range Comments POC-GLUCOSE METER (BEAKER) 150 mg/dL 70-110 : TESTED AT [address] (test ldiq=8286) [facility], [address]: Residential Finish Carpenter/Parts Facilitator [id number] for MUKESH LYNN [id number] 08:41:00 Test Item Value Reference Range Comments PARTIAL THROMBOPLASTIN TIME (BEAKER) (test 69.4 seconds 22.5-36.0 crwv=423) POCT-GLUCOSE [id number] 08:37:00 Test Item Value Reference Range Comments POC-GLUCOSE METER (BEAKER) 115 mg/dL 70-110 : Notified RN/MD: TESTED AT (test qdnd=6120) [address], [address]: Residential Finish Carpenter/Parts Facilitator [id number] for Adilene Madrigal COMPREHENSIVE METABOLIC [id number] 01:52:00 Test Item Value Reference Range Comments TOTAL PROTEIN (BEAKER) 6.5 gm/dL 6.0-8.3 Specimen slightly (test hyso=291) hemolyzed ALBUMIN (BEAKER) (test 3.6 g/dL 3.5-5.0 Specimen slightly lgvg=3219) hemolyzed ALKALINE PHOSPHATASE 89 U/L 40-150 (BEAKER) (test kjfs=320) BILIRUBIN TOTAL (BEAKER) 0.4 mg/dL 0.2-1.2 Specimen slightly (test pyfb=131) hemolyzed SODIUM (BEAKER) (test 136 meq/L 136-145 vgea=194) POTASSIUM (BEAKER) (test 4.0 meq/L 3.5-5.1 Specimen slightly uuax=208) hemolyzed CHLORIDE (BEAKER) (test 100 meq/L 98-107 awqh=985) CO2 (BEAKER) (test 24 meq/L 22-29 nklc=678) BLOOD UREA NITROGEN 77 mg/dL 7-21 (BEAKER) (test itmq=993) CREATININE (BEAKER) (test 2.79 mg/dL 0.57-1.25 Specimen slightly vvoc=653) hemolyzed GLUCOSE RANDOM (BEAKER) 89 mg/dL 70-105 (test esvu=450) CALCIUM (BEAKER) (test 9.3 mg/dL 8.4-10.2 dwyg=456) AST (SGOT) (BEAKER) (test 18 U/L 5-34 Specimen slightly lgrr=799) hemolyzed ALT (SGPT) (BEAKER) (test 10 U/L 6-55 Specimen slightly pubf=999) hemolyzed EGFR (BEAKER) (test 16 mL/min/1.73 sq m ESTIMATED GFR IS NOT uioz=7546) ACCURATE CREATININE CLEARANCE IN PREDICTING GLOMERULAR FILTRATION RATE. ESTIMATED GFR IS NOT APPLICABLE FOR DIALYSIS PATIENTS. [id number] 01:29:00 Test Item Value Reference Range Comments PARTIAL THROMBOPLASTIN TIME (BEAKER) (test 51.5 seconds 22.5-36.0 mzci=906) POCT-GLUCOSE [id number] 18:32:00 Test Item Value Reference Range Comments POC-GLUCOSE METER ([place]) 185 mg/dL 70-110 : TESTED AT [facility] [address] [facility] (test amot=7193) [facility], [address]: Residential Finish Carpenter/Parts Facilitator [id number] for Martín, Akash POCT-GLUCOSE [id number] 18:31:00 Test Item Value Reference Range Comments POC-GLUCOSE METER (BEAKER) 210 mg/dL 70-110 : TESTED AT [facility] [address] [facility] (test gxlj=5351) [facility], [address]: Residential Finish Carpenter/Parts Facilitator [id number] for Akash Resendiz POCT-GLUCOSE [id number] 18:29:00 Test Item Value Reference Range Comments POC-GLUCOSE METER (BEAKER) 150 mg/dL 70-110 : TESTED AT [facility] [address] [facility] (test ovws=4939) [facility], [address]: Residential Finish Carpenter/Parts Facilitator [id number] for LIZ WATSON [id number] 16:30:00 Test Item Value Reference Range Comments PARTIAL THROMBOPLASTIN TIME (BEAKER) (test 98.0 seconds 22.5-36.0 uprl=633) TROPONIN [id number] 09:11:00 Test Item Value Reference Range Comments TROPONIN I (BEAKER) (test knza=548) 0.97 ng/mL 0.00-0.03 Troponin I (TnI) levels must [...] failure, acidosis, acute neurological disease, and persistent tachyarrhythmia.[id number] 07:52:00 Test Item Value Reference Range Comments PHOSPHORUS (BEAKER) (test yfuq=123) 3.9 mg/dL 2.3-4.7 [id number] 07:52:00 Test Item Value Reference Range Comments MAGNESIUM (BEAKER) (test omox=683) 2.0 mg/dL 1.6-2.6 COMPREHENSIVE METABOLIC [id number] 07:52:00 Test Item Value Reference Range Comments TOTAL PROTEIN (BEAKER) 6.0 gm/dL 6.0-8.3 (test rtwj=075) ALBUMIN (BEAKER) (test 3.4 g/dL 3.5-5.0 sekb=3750) ALKALINE PHOSPHATASE 81 U/L 40-150 (BEAKER) (test vgtt=325) BILIRUBIN TOTAL (BEAKER) 0.5 mg/dL 0.2-1.2 (test aruw=661) SODIUM (BEAKER) (test 138 meq/L 136-145 beaw=403) POTASSIUM (BEAKER) (test 3.6 meq/L 3.5-5.1 wxxu=646) CHLORIDE (BEAKER) (test 100 meq/L 98-107 lljn=673) CO2 (BEAKER) (test 28 meq/L 22-29 wnen=237) BLOOD UREA NITROGEN 82 mg/dL 7-21 (BEAKER) (test nolh=239) CREATININE (BEAKER) (test 3.06 mg/dL 0.57-1.25 rzwd=199) GLUCOSE RANDOM (BEAKER) 128 mg/dL 70-105 (test qnri=860) CALCIUM (BEAKER) (test 8.9 mg/dL 8.4-10.2 erht=786) AST (SGOT) (BEAKER) (test 15 U/L 5-34 sdbp=887) ALT (SGPT) (BEAKER) (test 10 U/L 6-55 vint=720) EGFR (BEAKER) (test 15 mL/min/1.73 sq m ESTIMATED GFR IS NOT clmt=4071) ACCURATE CREATININE CLEARANCE IN PREDICTING GLOMERULAR FILTRATION RATE. ESTIMATED GFR IS NOT APPLICABLE FOR DIALYSIS PATIENTS. CALCIUM, [id number] 07:37:00 Test Item Value Reference Range Comments CALCIUM IONIZED (BEAKER) (test juxc=542) 1.14 mmol/L 1.12-1.27 PH, BLOOD (BEAKER) (test cfzf=3057) 7.40 B-TYPE NATRIURETIC FACTOR (BNP)2018-12-23 06:42:00 Test Item Value Reference Range Comments B-TYPE NATRIURETIC PEPTIDE (BEAKER) (test 190 pg/mL 0-100 xapd=522) [id number] 05:48:00 Test Item Value Reference Range Comments PARTIAL THROMBOPLASTIN TIME (BEAKER) (test 90.8 seconds 22.5-36.0 cwxh=715) CBC W/PLT COUNT & AUTO [id number] 05:35:00 Test Item Value Reference Range Comments WHITE BLOOD CELL COUNT (BEAKER) (test owwa=822) 7.7 K/ L 3.5-10.5 RED BLOOD CELL COUNT (BEAKER) (test tvds=405) 3.43 M/ L 3.93-5.22 HEMOGLOBIN (BEAKER) (test bnyz=903) 10.2 GM/DL 11.2-15.7 HEMATOCRIT (BEAKER) (test yeyj=797) 31.2 % 34.1-44.9 MEAN CORPUSCULAR VOLUME (BEAKER) (test fwdz=060) 91.0 fL 79.4-94.8 MEAN CORPUSCULAR HEMOGLOBIN (BEAKER) (test 29.7 pg 25.6-32.2 xaic=996) MEAN CORPUSCULAR HEMOGLOBIN CONC (BEAKER) (test 32.7 GM/DL 32.2-35.5 joav=803) RED CELL DISTRIBUTION WIDTH (BEAKER) (test 15.8 % 11.7-14.4 ypyb=608) PLATELET COUNT (BEAKER) (test amcv=084) 188 K/CU MM 150-450 MEAN PLATELET VOLUME (BEAKER) (test dqsk=340) 10.0 fL 9.4-12.3 NUCLEATED RED BLOOD CELLS (BEAKER) (test 0 /100 WBC 0-0 wchc=693) NEUTROPHILS RELATIVE PERCENT (BEAKER) (test 65 % icuo=074) LYMPHOCYTES RELATIVE PERCENT (BEAKER) (test 19 % nvre=252) MONOCYTES RELATIVE PERCENT (BEAKER) (test 9 % flyn=654) EOSINOPHILS RELATIVE PERCENT (BEAKER) (test 6 % mqlb=555) BASOPHILS RELATIVE PERCENT (BEAKER) (test 1 % jyru=765) NEUTROPHILS ABSOLUTE COUNT (BEAKER) (test 4.99 K/ L 1.56-6.13 tixw=622) LYMPHOCYTES ABSOLUTE COUNT (BEAKER) (test 1.46 K/ L 1.18-3.74 jqmq=916) MONOCYTES ABSOLUTE COUNT (BEAKER) (test 0.68 K/ L 0.24-0.36 yzja=293) EOSINOPHILS ABSOLUTE COUNT (BEAKER) (test 0.47 K/ L 0.04-0.36 duhi=750) BASOPHILS ABSOLUTE COUNT (BEAKER) (test 0.04 K/ L 0.01-0.08 mfnq=924) IMMATURE GRANULOCYTES-RELATIVE PERCENT (BEAKER) 1 % 0-1 (test sfrd=9228) POCT-GLUCOSE [id number] 21:16:00 Test Item Value Reference Range Comments POC-GLUCOSE METER (BEAKER) 200 mg/dL 70-110 : TESTED AT [address] (test drgr=7217) [facility], [address]: Residential Finish Carpenter/Parts Facilitator PT=[id number] for GISSELLE LOWERY [id number] 20:08:00 Test Item Value Reference Range Comments PARTIAL THROMBOPLASTIN TIME (BEAKER) (test 51.9 seconds 22.5-36.0 xuxe=716) POCT-GLUCOSE [id number] 17:37:00 Test Item Value Reference Range Comments POC-GLUCOSE METER (BEAKER) 211 mg/dL 70-110 : TESTED AT [address] (test ekok=4686) [facility], [address]: Residential Finish Carpenter/Parts Facilitator AY=[id number] for Deepa Duenas [id number] 13:26:00 Test Item Value Reference Range Comments PARTIAL THROMBOPLASTIN TIME (BEAKER) (test 65.2 seconds 22.5-36.0 faiy=071) POCT-GLUCOSE [id number] 13:18:00 Test Item Value Reference Range Comments POC-GLUCOSE METER (BEAKER) 194 mg/dL 70-110 : TESTED AT [address] (test qhsh=3380) [facility], [address]: Residential Finish Carpenter/Parts Facilitator YG=[id number] for Deepa Duenas HEMOGLOBIN [id number] 10:07:00 Test Item Value Reference Range Comments HEMOGLOBIN A1C (BEAKER) (test kpxb=604) 10.2 % 4.3-6.1 [id number] 09:05:00 Test Item Value Reference Range Comments FERRITIN (BEAKER) (test fbfm=813) 195 ng/mL 5-275 POCT-GLUCOSE [id number] 08:37:00 Test Item Value Reference Range Comments POC-GLUCOSE METER (BEAKER) 202 mg/dL 70-110 : TESTED AT [address] (test djvd=0913) [facility], [address]: Residential Finish Carpenter/Parts Facilitator [id number] for CLIFF MCDONNELL CALCIUM, [id number] 06:55:00 Test Item Value Reference Range Comments CALCIUM IONIZED (BEAKER) (test wdzg=776) 1.11 mmol/L 1.12-1.27 PH, BLOOD (BEAKER) (test eyfs=9291) 7.41 IRON, TIBC, % SAT. (WITHOUT FERRITIN)2018-12-22 06:37:00 Test Item Value Reference Range Comments IRON (BEAKER) (test oyng=545) 85.0 ug/dL 40.0-160.0 TOTAL IRON BINDING CAPACITY (BEAKER) (test 226 ug/dL 250-450 tfjt=266) IRON % SATURATION (2) (BEAKER) (test grnb=0633) 38 % 20-55 TROPONIN [id number] 05:40:00 Test Item Value Reference Range Comments TROPONIN I (BEAKER) (test jrjp=037) 1.32 ng/mL 0.00-0.03 Troponin I (TnI) levels must [...] failure, acidosis, acute neurological disease, and persistent tachyarrhythmia.COMPREHENSIVE METABOLIC [id number] 05:39:00 Test Item Value Reference Range Comments TOTAL PROTEIN (BEAKER) 6.2 gm/dL 6.0-8.3 (test cjjo=159) ALBUMIN (BEAKER) (test 3.4 g/dL 3.5-5.0 xawo=5859) ALKALINE PHOSPHATASE 81 U/L 40-150 (BEAKER) (test tkfo=405) BILIRUBIN TOTAL (BEAKER) 0.6 mg/dL 0.2-1.2 (test sgoo=144) SODIUM (BEAKER) (test 135 meq/L 136-145 wosj=380) POTASSIUM (BEAKER) (test 3.9 meq/L 3.5-5.1 rpng=718) CHLORIDE (BEAKER) (test 97 meq/L 98-107 msxh=644) CO2 (BEAKER) (test 30 meq/L 22-29 bepc=333) BLOOD UREA NITROGEN 77 mg/dL 7-21 (BEAKER) (test zlct=864) CREATININE (BEAKER) (test 3.61 mg/dL 0.57-1.25 wfva=542) GLUCOSE RANDOM (BEAKER) 156 mg/dL 70-105 (test ybot=803) CALCIUM (BEAKER) (test 9.0 mg/dL 8.4-10.2 ddqw=311) AST (SGOT) (BEAKER) (test 14 U/L 5-34 vwhn=765) ALT (SGPT) (BEAKER) (test 6 U/L 6-55 gpje=212) EGFR (BEAKER) (test 12 mL/min/1.73 sq m ESTIMATED GFR IS NOT lnzp=1781) ACCURATE CREATININE CLEARANCE IN PREDICTING GLOMERULAR FILTRATION RATE. ESTIMATED GFR IS NOT APPLICABLE FOR DIALYSIS PATIENTS. B-TYPE NATRIURETIC FACTOR (BNP)2018-12-22 05:33:00 Test Item Value Reference Range Comments B-TYPE NATRIURETIC PEPTIDE (BEAKER) (test 221 pg/mL 0-100 pkwk=282) [id number] 05:32:00 Test Item Value Reference Range Comments PHOSPHORUS (BEAKER) (test thra=456) 4.8 mg/dL 2.3-4.7 [id number] 05:32:00 Test Item Value Reference Range Comments MAGNESIUM (BEAKER) (test salj=037) 2.0 mg/dL 1.6-2.6 [id number] 05:19:00 Test Item Value Reference Range Comments PARTIAL THROMBOPLASTIN TIME (BEAKER) (test 92.9 seconds 22.5-36.0 fsgb=384) RETICULOCYTE [id number] 05:11:00 Test Item Value Reference Range Comments RETICULOCYTE COUNT PCT (BEAKER) (test jegm=602) 2.0 % 0.5-1.7 CBC W/PLT COUNT & AUTO [id number] 05:11:00 Test Item Value Reference Range Comments WHITE BLOOD CELL COUNT (BEAKER) (test zqzi=302) 7.4 K/ L 3.5-10.5 RED BLOOD CELL COUNT (BEAKER) (test wftk=446) 3.42 M/ L 3.93-5.22 HEMOGLOBIN (BEAKER) (test ixug=388) 10.1 GM/DL 11.2-15.7 HEMATOCRIT (BEAKER) (test abdq=041) 31.4 % 34.1-44.9 MEAN CORPUSCULAR VOLUME (BEAKER) (test jvyv=219) 91.8 fL 79.4-94.8 MEAN CORPUSCULAR HEMOGLOBIN (BEAKER) (test 29.5 pg 25.6-32.2 swcg=470) MEAN CORPUSCULAR HEMOGLOBIN CONC (BEAKER) (test 32.2 GM/DL 32.2-35.5 amgw=152) RED CELL DISTRIBUTION WIDTH (BEAKER) (test 15.9 % 11.7-14.4 kqkd=359) PLATELET COUNT (BEAKER) (test xczw=096) 192 K/CU MM 150-450 MEAN PLATELET VOLUME (BEAKER) (test tbbs=719) 10.5 fL 9.4-12.3 NUCLEATED RED BLOOD CELLS (BEAKER) (test 0 /100 WBC 0-0 vzqg=695) NEUTROPHILS RELATIVE PERCENT (BEAKER) (test 55 % sgwk=953) LYMPHOCYTES RELATIVE PERCENT (BEAKER) (test 26 % ubdc=073) MONOCYTES RELATIVE PERCENT (BEAKER) (test 12 % mekv=783) EOSINOPHILS RELATIVE PERCENT (BEAKER) (test 7 % kyzd=873) BASOPHILS RELATIVE PERCENT (BEAKER) (test 1 % rqkd=173) NEUTROPHILS ABSOLUTE COUNT (BEAKER) (test 4.05 K/ L 1.56-6.13 haxd=820) LYMPHOCYTES ABSOLUTE COUNT (BEAKER) (test 1.89 K/ L 1.18-3.74 gfkr=693) MONOCYTES ABSOLUTE COUNT (BEAKER) (test 0.86 K/ L 0.24-0.36 yaom=078) EOSINOPHILS ABSOLUTE COUNT (BEAKER) (test 0.49 K/ L 0.04-0.36 xksc=493) BASOPHILS ABSOLUTE COUNT (BEAKER) (test 0.04 K/ L 0.01-0.08 mcsi=897) IMMATURE GRANULOCYTES-RELATIVE PERCENT (BEAKER) 1 % 0-1 (test cvia=7016) U/S, RENAL, [id number] 01:46:00Reason for exam:->AKIShould this be performed at the bedside?->YesFINAL REPORT TECHNIQUE: Grayscale ultrasound of the kidneys and bladder. INDICATION: OTIS. COMPARISON: . FINDINGS: RIGHT KIDNEY: The right kidney measures 8.6 x 3.8 x 4.0 cm. Cortical thickness measures 0.9 cm. No solid mass lesions. There is a nonobstructing stone in the lower pole that is 1.6 x 1.3 x 1.1 cm. No hydronephrosis. Renal artery and vein are patent. LEFT KIDNEY: The left kidney measures 7.0 x 3.1 x 3.5 cm. Cortical thickness measures 0.9 cm. No solid masslesions. There is a nonobstructing stone that is 0.9 x 1.1 x 1.0 cm No hydronephrosis. Renal artery and vein are patent. BLADDER: Unremarkable. IMPRESSION:Bilateral nonobstructing nephrolithiasis. Otherwise, unremarkable ultrasound. Signed: Yuan Ying MDReport Verified Date/Time: 12/22/2018 01:46: 35 POCT -GLUCOSE [id number] 22:07:00 Test Item Value Reference Range Comments POC-GLUCOSE METER (BEAKER) 105 mg/dL 70-110 : TESTED AT [address] (test ifnp=6168) [facility], [facility]: Residential Finish Carpenter/Parts Facilitator [id number] for Iza Thurman [id number] 20:19:00 Test Item Value Reference Range Comments PARTIAL THROMBOPLASTIN TIME (BEAKER) (test 75.7 seconds 22.5-36.0 gexb=362) POCT-GLUCOSE [id number] 17:42:00 Test Item Value Reference Range Comments POC-GLUCOSE METER (BEAKER) 305 mg/dL 70-110 : TESTED AT [address] (test oozq=3565) [facility], [address]: Residential Finish Carpenter/Parts Facilitator YO=[id number] for CLIFF MCDONNELL URINALYSIS W/ [id number] 14:46:00 Test Item Value Reference Range Comments COLOR (BEAKER) (test qeoh=468) Yellow CLARITY (BEAKER) (test cwif=002) Clear SPECIFIC GRAVITY UA (BEAKER) (test wqnh=884) 1.015 1.001-1.035 PH UA (BEAKER) (test ahxn=817) 5.0 5.0-8.0 PROTEIN UA (BEAKER) (test ekaq=797) 10 mg/dL Negative GLUCOSE UA (BEAKER) (test gmft=278) 30 mg/dL Negative KETONES UA (BEAKER) (test xubx=794) Negative Negative BILIRUBIN UA (BEAKER) (test swoo=461) Negative Negative BLOOD UA (BEAKER) (test qgfg=377) Negative Negative NITRITE UA (BEAKER) (test vagu=604) Negative Negative LEUKOCYTE ESTERASE UA (BEAKER) (test njox=766) Small Negative UROBILINOGEN UA (BEAKER) (test nfgo=100) 0.2 mg/dL 0.2-1.0 RBC UA (BEAKER) (test jwbb=615) 1 /HPF WBC UA (BEAKER) (test szsk=372) 3 /HPF SQUAMOUS EPITHELIAL (BEAKER) (test xoxf=611) 1 /HPF HYALINE CASTS (BEAKER) (test bnia=117) 7 /LPF SOURCE(BEAKER) (test nuhd=7411) CREATININE, RANDOM [id number] 14:45:00 Test Item Value Reference Range Comments CREATININE URINE (BEAKER) (test wohn=926) 123.0 mg/dL Reference Range: No [id number] 14:24:00 Test Item Value Reference Range Comments PARTIAL THROMBOPLASTIN TIME (BEAKER) (test 67.3 seconds 22.5-36.0 ebrh=046) PROTEIN, RANDOM [id number] 14:23:00 Test Item Value Reference Range Comments PROTEIN, URINE (BEAKER) (test ktlr=0636) 20 mg/dL 0-14 SODIUM, RANDOM [id number] 14:23:00 Test Item Value Reference Range Comments SODIUM URINE (BEAKER) (test voer=207) 26 meq/L Reference Range: No NormalsTROPONIN [id number] 12:25:00 Test Item Value Reference Range Comments TROPONIN I (BEAKER) (test exue=226) 2.12 ng/mL 0.00-0.03 Troponin I (TnI) levels must [...] acidosis, acute neurological disease, and persistent tachyarrhythmia.POCT-GLUCOSE [id number] 10:12:00 Test Item Value Reference Range Comments POC-GLUCOSE METER (BEAKER) 177 mg/dL 70-110 : TESTED AT [facility] [address] (test cbob=3652) [facility], [id number]: Residential Finish Carpenter/Parts Facilitator [id number] for [employer] [facility] PT/[id number] 07:55:00 Test Item Value Reference Range Comments PROTIME (BEAKER) (test ivtu=949) 14.1 seconds 11.9-14.2 INR (BEAKER) (test wavp=585) 1.2 <=5.9 PARTIAL THROMBOPLASTIN TIME (BEAKER) (test 55.3 seconds 22.5-36.0 gtbe=770) Effective 07/18/2018: PT Reference Range ChangeNew: 11.9-14.2 Previous: 11.7- 14.7RECOMMENDED COUMADIN/WARFARIN INR THERAPY RANGESSTANDARD DOSE: 2.0-3.0 Includes: PROPHYLAXIS for venous thrombosis, systemic embolization; TREATMENT for venous thrombosis and/or pulmonary embolus.HIGH RISK: Target INR is2.5-3.5 for patients wiht mechanical heart valves.[id number] 05:00:00 Test Item Value Reference Range Comments PARTIAL THROMBOPLASTIN TIME (BEAKER) (test 132.7 seconds 22.5-36.0 rkrl=171) 6 hours after starting heparin infusion and as indicated per sliding scaleTROPONIN [id number] 04:38:00 Test Item Value Reference Range Comments TROPONIN I (BEAKER) (test iiub=363) 2.37 ng/mL 0.00-0.03 Troponin I (TnI) levels must [...] failure, acidosis, acute neurological disease, and persistent tachyarrhythmia.BASIC METABOLIC [id number] 04:37:00 Test Item Value Reference Range Comments SODIUM (BEAKER) (test 139 meq/L 136-145 rcfc=181) POTASSIUM (BEAKER) (test 3.2 meq/L 3.5-5.1 bpxl=878) CHLORIDE (BEAKER) (test 98 meq/L 98-107 zfpx=438) CO2 (BEAKER) (test 33 meq/L 22-29 myef=169) BLOOD UREA NITROGEN 63 mg/dL 7-21 (BEAKER) (test vxdc=155) CREATININE (BEAKER) (test 3.13 mg/dL 0.57-1.25 pzqd=919) GLUCOSE RANDOM (BEAKER) 161 mg/dL 70-105 (test niop=307) CALCIUM (BEAKER) (test 9.4 mg/dL 8.4-10.2 wwbc=266) EGFR (BEAKER) (test 14 mL/min/1.73 sq m ESTIMATED GFR IS NOT cxnm=1090) ACCURATE CREATININE CLEARANCE IN PREDICTING GLOMERULAR FILTRATION RATE. ESTIMATED GFR IS NOT APPLICABLE FOR DIALYSIS PATIENTS. CBC (HEMOGRAM ONLY)2018-12-21 04:09:00 Test Item Value Reference Range Comments WHITE BLOOD CELL COUNT (BEAKER) (test lewg=354) 7.1 K/ L 3.5-10.5 RED BLOOD CELL COUNT (BEAKER) (test mnxp=230) 3.62 M/ L 3.93-5.22 HEMOGLOBIN (BEAKER) (test grmn=705) 10.9 GM/DL 11.2-15.7 HEMATOCRIT (BEAKER) (test eiog=132) 33.3 % 34.1-44.9 MEAN CORPUSCULAR VOLUME (BEAKER) (test jceo=160) 92.0 fL 79.4-94.8 MEAN CORPUSCULAR HEMOGLOBIN (BEAKER) (test 30.1 pg 25.6-32.2 hmwc=072) MEAN CORPUSCULAR HEMOGLOBIN CONC (BEAKER) (test 32.7 GM/DL 32.2-35.5 kbho=250) RED CELL DISTRIBUTION WIDTH (BEAKER) (test 15.8 % 11.7-14.4 gqxu=415) PLATELET COUNT (BEAKER) (test rcgk=037) 188 K/CU MM 150-450 MEAN PLATELET VOLUME (BEAKER) (test sabu=213) 10.2 fL 9.4-12.3 NUCLEATED RED BLOOD CELLS (BEAKER) (test 0 /100 WBC 0-0 jaop=117) TROPONIN [id number] 01:13:00 Test Item Value Reference Range Comments TROPONIN I (BEAKER) (test quqy=643) 2.09 ng/mL 0.00-0.03 Troponin I (TnI) levels must [...] acidosis, acute neurological disease, and persistent tachyarrhythmia.POCT-GLUCOSE [id number] 00:48:00 Test Item Value Reference Range Comments POC-GLUCOSE METER (BEAKER) 226 mg/dL 70-110 : TESTED AT [facility] [address] [facility] (test nhzr=1558) [facility], [id number]: Residential Finish Carpenter/Parts Facilitator VP=[id number] for DARIO ELAYNE ALEX, CHEST, 1 VIEW, NON [id number] 21:25:00Reason for exam:->chest painShould this be performed at the bedside?->YesFINAL REPORT History: Chest pain. Comparison: 11/11/2018 Findings: A single view of the chest is submitted. The cardiac silhouette is within normal limits for size. There is atherosclerotic calcification of the aorta. The lung volumes are slightly low. There is no focal consolidation, pneumothorax, large pleural effusion or evidence of overt pulmonary edema. There is no acute bony abnormality. Cervical fusion hardware is partially visualized. Chronic appearing deformities of both proximal humeral heads are redemonstrated. Signed : Ti Valdez MDReport Verified Date/Time:12/20/2018 21:25:44 TROPONIN [id number] 21:11:00 Test Item Value Reference Range Comments TROPONIN I (BEAKER) (test dopg=846) 1.33 ng/mL 0.00-0.03 Troponin I (TnI) levels must [...] disease, and persistent tachyarrhythmia.B-TYPE NATRIURETIC FACTOR (BNP) 21:08:00 Test Item Value Reference Range Comments B-TYPE NATRIURETIC PEPTIDE (BEAKER) (test 1084 pg/mL 0-100 pgxw=717) COMPREHENSIVE METABOLIC [id number] 21:05:00 Test Item Value Reference Range Comments TOTAL PROTEIN (BEAKER) 6.5 gm/dL 6.0-8.3 (test txwj=222) ALBUMIN (BEAKER) (test 3.6 g/dL 3.5-5.0 ltvh=6707) ALKALINE PHOSPHATASE 120 U/L 40-150 (BEAKER) (test mhwh=786) BILIRUBIN TOTAL (BEAKER) 0.5 mg/dL 0.2-1.2 (test ectx=604) SODIUM (BEAKER) (test 137 meq/L 136-145 xfqt=037) POTASSIUM (BEAKER) (test 3.3 meq/L 3.5-5.1 kvpc=188) CHLORIDE (BEAKER) (test 96 meq/L 98-107 ndtd=722) CO2 (BEAKER) (test 32 meq/L 22-29 poaw=980) BLOOD UREA NITROGEN 60 mg/dL 7-21 (BEAKER) (test khcr=921) CREATININE (BEAKER) (test 2.83 mg/dL 0.57-1.25 zvyz=463) GLUCOSE RANDOM (BEAKER) 234 mg/dL 70-105 (test rubf=808) CALCIUM (BEAKER) (test 9.3 mg/dL 8.4-10.2 dgai=771) AST (SGOT) (BEAKER) (test 14 U/L 5-34 mgty=164) ALT (SGPT) (BEAKER) (test 7 U/L 6-55 wiyn=890) EGFR (BEAKER) (test 16 mL/min/1.73 sq m ESTIMATED GFR IS NOT khzi=5366) ACCURATE CREATININE CLEARANCE IN PREDICTING GLOMERULAR FILTRATION RATE. ESTIMATED GFR IS NOT APPLICABLE FOR DIALYSIS PATIENTS. [id number] 21:02:00 Test Item Value Reference Range Comments MAGNESIUM (BEAKER) (test egna=224) 2.0 mg/dL 1.6-2.6 [id number] 20:58:00 Test Item Value Reference Range Comments PROTIME (BEAKER) (test bufz=320) 13.3 seconds 11.9-14.2 INR (BEAKER) (test vhws=871) 1.1 <=5.9 PARTIAL THROMBOPLASTIN TIME (BEAKER) (test 26.3 seconds 22.5-36.0 zleo=795) Effective 07/18/2018: PT Reference Range ChangeNew: 11.9-14.2 Previous: 11.7- 14.7RECOMMENDED COUMADIN/WARFARIN INR THERAPY RANGESSTANDARD DOSE: 2.0-3.0 Includes: PROPHYLAXIS for venous thrombosis, systemic embolization; TREATMENT for venous thrombosis and/or pulmonary embolus.HIGH RISK: Target INR is2.5-3.5 for patients wiht mechanical heart valves.CBC W/PLT COUNT & AUTO [id number] 20:46:00 Test Item Value Reference Range Comments WHITE BLOOD CELL COUNT (BEAKER) (test jbqn=613) 7.7 K/ L 3.5-10.5 RED BLOOD CELL COUNT (BEAKER) (test scmt=117) 3.86 M/ L 3.93-5.22 HEMOGLOBIN (BEAKER) (test uiyj=282) 11.5 GM/DL 11.2-15.7 HEMATOCRIT (BEAKER) (test cgjt=715) 35.0 % 34.1-44.9 MEAN CORPUSCULAR VOLUME (BEAKER) (test gbct=618) 90.7 fL 79.4-94.8 MEAN CORPUSCULAR HEMOGLOBIN (BEAKER) (test 29.8 pg 25.6-32.2 bdhk=449) MEAN CORPUSCULAR HEMOGLOBIN CONC (BEAKER) (test 32.9 GM/DL 32.2-35.5 ehct=789) RED CELL DISTRIBUTION WIDTH (BEAKER) (test 15.5 % 11.7-14.4 hotm=274) PLATELET COUNT (BEAKER) (test lghw=501) 199 K/CU MM 150-450 MEAN PLATELET VOLUME (BEAKER) (test iehd=064) 9.8 fL 9.4-12.3 NUCLEATED RED BLOOD CELLS (BEAKER) (test 0 /100 WBC 0-0 etyh=011) NEUTROPHILS RELATIVE PERCENT (BEAKER) (test 63 % iced=936) LYMPHOCYTES RELATIVE PERCENT (BEAKER) (test 21 % oecj=738) MONOCYTES RELATIVE PERCENT (BEAKER) (test 9 % shbq=704) EOSINOPHILS RELATIVE PERCENT (BEAKER) (test 5 % cctk=396) BASOPHILS RELATIVE PERCENT (BEAKER) (test 1 % wjua=323) NEUTROPHILS ABSOLUTE COUNT (BEAKER) (test 4.83 K/ L 1.56-6.13 eiwc=626) LYMPHOCYTES ABSOLUTE COUNT (BEAKER) (test 1.63 K/ L 1.18-3.74 fhls=546) MONOCYTES ABSOLUTE COUNT (BEAKER) (test 0.72 K/ L 0.24-0.36 nojw=530) EOSINOPHILS ABSOLUTE COUNT (BEAKER) (test 0.41 K/ L 0.04-0.36 sdtz=130) BASOPHILS ABSOLUTE COUNT (BEAKER) (test 0.04 K/ L 0.01-0.08 wvbn=211) IMMATURE GRANULOCYTES-RELATIVE PERCENT (BEAKER) 1 % 0-1 (test mcgs=5244) POCT-GLUCOSE [id number] 11:57:00 Test Item Value Reference Range Comments POC-GLUCOSE METER (BEAKER) 377 mg/dL 70-110 TESTED AT [address] (test vhas=1551) [place] [address] POCT-GLUCOSE [id number] 09:11:00 Test Item Value Reference Range Comments POC-GLUCOSE METER (BEAKER) 95 mg/dL 70-110 TESTED AT [address] (test hwos=5672) [place] [address] POCT-GLUCOSE [id number] 06:53:00 Test Item Value Reference Range Comments POC-GLUCOSE METER (BEAKER) 288 mg/dL 70-110 TESTED AT [address] (test skjo=8872) [place] [address] COMPREHENSIVE METABOLIC [id number] 01:54:00 Test Item Value Reference Range Comments TOTAL PROTEIN (BEAKER) 6.1 gm/dL 6.0-8.3 Specimen slightly (test zyhb=457) hemolyzed ALBUMIN (BEAKER) (test 3.3 g/dL 3.5-5.0 Specimen slightly nsvm=6702) hemolyzed ALKALINE PHOSPHATASE 91 U/L 40-150 (BEAKER) (test daiv=349) BILIRUBIN TOTAL (BEAKER) 0.5 mg/dL 0.2-1.2 Specimen slightly (test hdbg=340) hemolyzed SODIUM (BEAKER) (test 134 meq/L 136-145 pchm=569) POTASSIUM (BEAKER) (test 4.0 meq/L 3.5-5.1 Specimen slightly ejey=513) hemolyzed CHLORIDE (BEAKER) (test 101 meq/L 98-107 ivww=518) CO2 (BEAKER) (test 21 meq/L 22-29 xrlw=744) BLOOD UREA NITROGEN 65 mg/dL 7-21 (BEAKER) (test hnoq=704) CREATININE (BEAKER) (test 2.75 mg/dL 0.57-1.25 Specimen slightly xhgf=387) hemolyzed GLUCOSE RANDOM (BEAKER) 434 mg/dL 70-105 (test kphg=695) CALCIUM (BEAKER) (test 8.4 mg/dL 8.4-10.2 avtd=646) AST (SGOT) (BEAKER) (test 18 U/L 5-34 Specimen slightly jjmr=187) hemolyzed ALT (SGPT) (BEAKER) (test 13 U/L 6-55 Specimen slightly spbk=861) hemolyzed EGFR (BEAKER) (test 17 mL/min/1.73 sq m ESTIMATED GFR IS NOT rcfw=6779) ACCURATE CREATININE CLEARANCE IN PREDICTING GLOMERULAR FILTRATION RATE. ESTIMATED GFR IS NOT APPLICABLE FOR DIALYSIS PATIENTS. [id number] 01:49:00 Test Item Value Reference Range Comments ACTIVATED CLOTTING TIME 142 sec Reference Range: 74-137 (BEAKER) (test hqts=614) seconds, Baseline/TESTED AT [facility] [address] [facility] [address] B-TYPE NATRIURETIC FACTOR (BNP)2018-11-13 01:42:00 Test Item Value Reference Range Comments B-TYPE NATRIURETIC PEPTIDE (BEAKER) (test 1151 pg/mL 0-100 sdzt=712) URINALYSIS W/ [id number] 01:40:00 Test Item Value Reference Range Comments COLOR (BEAKER) (test djef=713) Light Yellow CLARITY (BEAKER) (test rutj=143) Clear SPECIFIC GRAVITY UA (BEAKER) (test patl=105) 1.023 1.001-1.035 PH UA (BEAKER) (test eyki=616) 5.5 5.0-8.0 PROTEIN UA (BEAKER) (test tvds=110) 20 mg/dL Negative GLUCOSE UA (BEAKER) (test ejsv=477) >1000 mg/dL Negative KETONES UA (BEAKER) (test muwg=242) 10 mg/dL Negative BILIRUBIN UA (BEAKER) (test wgxw=933) Negative Negative BLOOD UA (BEAKER) (test woqo=122) Small Negative NITRITE UA (BEAKER) (test hyct=920) Negative Negative LEUKOCYTE ESTERASE UA (BEAKER) (test rlvp=383) Negative Negative UROBILINOGEN UA (BEAKER) (test hmgh=965) 0.2 mg/dL 0.2-1.0 RBC UA (BEAKER) (test evco=772) 2 /HPF WBC UA (BEAKER) (test aezd=315) 1 /HPF BACTERIA (BEAKER) (test jqff=952) Rare SQUAMOUS EPITHELIAL (BEAKER) (test ibfk=385) 2 /HPF SOURCE(BEAKER) (test nggf=0458) [id number] 01:36:00 Test Item Value Reference Range Comments MAGNESIUM (BEAKER) (test 2.0 mg/dL 1.6-2.6 Specimen slightly hemolyzed tfbc=109) [id number] 01:36:00 Test Item Value Reference Range Comments PHOSPHORUS (BEAKER) (test 4.4 mg/dL 2.3-4.7 Specimen slightly hemolyzed njcx=692) CBC W/PLT COUNT & AUTO [id number] 01:24:00 Test Item Value Reference Range Comments WHITE BLOOD CELL COUNT (BEAKER) (test pnxt=552) 7.4 K/ L 3.5-10.5 RED BLOOD CELL COUNT (BEAKER) (test ipft=071) 4.21 M/ L 3.93-5.22 HEMOGLOBIN (BEAKER) (test mhma=953) 12.4 GM/DL 11.2-15.7 HEMATOCRIT (BEAKER) (test xrbc=623) 38.7 % 34.1-44.9 MEAN CORPUSCULAR VOLUME (BEAKER) (test uruu=281) 91.9 fL 79.4-94.8 MEAN CORPUSCULAR HEMOGLOBIN (BEAKER) (test 29.5 pg 25.6-32.2 tguy=847) MEAN CORPUSCULAR HEMOGLOBIN CONC (BEAKER) (test 32.0 GM/DL 32.2-35.5 zwun=946) RED CELL DISTRIBUTION WIDTH (BEAKER) (test 14.6 % 11.7-14.4 lqxg=864) PLATELET COUNT (BEAKER) (test qqnl=882) 174 K/CU MM 150-450 MEAN PLATELET VOLUME (BEAKER) (test nanj=298) 11.0 fL 9.4-12.3 NUCLEATED RED BLOOD CELLS (BEAKER) (test 0 /100 WBC 0-0 lcmf=512) NEUTROPHILS RELATIVE PERCENT (BEAKER) (test 87 % wsyk=493) LYMPHOCYTES RELATIVE PERCENT (BEAKER) (test 12 % jdbg=772) MONOCYTES RELATIVE PERCENT (BEAKER) (test 1 % slsk=139) EOSINOPHILS RELATIVE PERCENT (BEAKER) (test 0 % berf=635) BASOPHILS RELATIVE PERCENT (BEAKER) (test 0 % xxiu=610) NEUTROPHILS ABSOLUTE COUNT (BEAKER) (test 6.42 K/ L 1.56-6.13 scre=236) LYMPHOCYTES ABSOLUTE COUNT (BEAKER) (test 0.85 K/ L 1.18-3.74 gfzk=540) MONOCYTES ABSOLUTE COUNT (BEAKER) (test 0.04 K/ L 0.24-0.36 ydoy=615) EOSINOPHILS ABSOLUTE COUNT (BEAKER) (test 0.00 K/ L 0.04-0.36 qnzm=816) BASOPHILS ABSOLUTE COUNT (BEAKER) (test 0.01 K/ L 0.01-0.08 rkor=397) IMMATURE GRANULOCYTES-RELATIVE PERCENT (BEAKER) 1 % 0-1 (test gdua=1461) CALCIUM, [id number] 01:16:00 Test Item Value Reference Range Comments CALCIUM IONIZED (BEAKER) (test ugzf=308) 1.10 mmol/L 1.12-1.27 PH, BLOOD (BEAKER) (test magh=5359) 7.32 [id number] 23:34:00 Test Item Value Reference Range Comments ACTIVATED CLOTTING TIME 164 sec Reference Range: 74-137 (BEAKER) (test ijlm=303) seconds, Baseline/TESTED AT [address] [address] [id number] 21:52:00 Test Item Value Reference Range Comments ACTIVATED CLOTTING TIME 191 sec Reference Range: 74-137 (BEAKER) (test iziw=724) seconds, Baseline/TESTED AT [address] [address] POCT-GLUCOSE [id number] 21:33:00 Test Item Value Reference Range Comments POC-GLUCOSE METER (BEAKER) 294 mg/dL 70-110 TESTED AT [address] (test bock=5949) [place] [address] C. DIFFICILE GDH [id number] 20:08:00 Test Item Value Reference Range Comments CDT TOXIN (test Negative Negative pzpr=[id number]) CDT GDH ANTIGEN (test Positive Negative C. difficile present but toxin zqvs=[id number]) not detected. Indicates colonization with non-toxigenic strain or level of toxin below detectable levels. No need for enteric isolation. Treatment is rarely needed (only when strong clinical suspicion for Clostridium difficile infection) Testing performed by [employer] Rapid Cassette Assay. For GDH, published sensitivity of the assay is 98.7% compared to cytotoxicity testing. For Toxin AB, published sensitivity is 87.8% and specificity 99.4% compared to cytotoxicity testing.Verification of kit performance was done by the [facility] Microbiology Lab prior to clinical use.[id number] 17:58:00 Test Item Value Reference Range Comments ACTIVATED CLOTTING TIME 290 sec Reference Range: 74-137 (BEAKER) (test ejmz=050) seconds, Baseline/TESTED AT [place] [address] [id number] 16:57:00 Test Item Value Reference Range Comments ACTIVATED CLOTTING TIME 263 sec Reference Range: 74-137 (BEAKER) (test sstu=659) seconds, Baseline/TESTED AT [place] [address] [id number] 16:20:00 Test Item Value Reference Range Comments ACTIVATED CLOTTING TIME 252 sec Reference Range: 74-137 (BEAKER) (test epru=294) seconds, Baseline/TESTED AT [place] [address] PET, CARDIAC PERFUSION MULTIPLE STUDIES, REST AND [id number] 15:26: 00Reason for exam:->eval chest pain, ischemiaFINAL REPORT PROCEDURE: MYOCARDIAL PERFUSION PET IMAGING (Rest/Stress)CPT CODE: 02762 INDICATION: Evaluate extent of known CAD, chest discomfort, CHF, obesity CARDIOVASCULAR PROFILE:CAD History: Known CAD status post PCI, ischemic cardiomyopathySymptoms: Chest discomfort, dyspneaRisk Factors: Known CAD, diabetes, hypertension, hyperlipidemia, obesityBMI: 30Medications: Aspirin, Lipitor, carvedilol, Plavix, heparin, nitroglycerin STRESS PROTOCOL: Pharmacologic stress was achieved with a 10-second intravenous infusion of regadenoson 0.4 mg. The radiopharmaceutical was administered 30 seconds after the start of the regadenoson infusion. IMAGING PROTOCOL:Limited low-dose CT imaging was performed for attenuation correction. 40.1 mCi of Rb-82 chloride was injected intravenously atrest, and gated PET images were obtained. Then, 40.2 mCi of Rb-82 chloride was injected intravenously at peak stress, and gated PET images were obtained. REST FINDINGS:HR: 96/minBP: 161/67 mmHgPrelim. EKG: Normal sinus rhythm, ST depression in inferolateral leads less than 1 mm.Perfusion: There is an absence of perfusion in the apical inferior segment There is a moderate severity perfusion abnormality in the basal to apical anterior and apical septal segments.Wall Motion: Severe basal to apical anterior hypokinesis, the remaining segments show moderate hypokinesis. (LVEF 34 %).LV Volume: Mildly increased.RV Volume: Normal. STRESS FINDINGS:HR: 105/min ( 73% of MPHR)BP: 170/55 mmHgPrelim. EKG: Persistent less than [address] depression in inferolateral leads, unchanged from rest.Symptoms: Chest discomfort, nausea, fatigue (Treatment was [id number] IV).Perfusion: There is an absence of perfusionin the apical inferior segment. There is a marked severity perfusion defect of the basal to apical anterior and apical septal segments. There is a moderate severity perfusion defect of the basal to midinferior segments, basal to mid inferolateral, and apical lateral segments.Wall Motion: Severe basalto apical anterior hypokinesis, the remaining segments show moderate hypokinesis. ( LVEF 37%).LV Volume: Not significantly changed from rest. IMPRESSION:1. Abnormal study.2. Abnormal myocardial perfusion. There is a large size, marked severity, mostly reversible perfusion abnormality in the anterior, apical, inferior and lateral LV concerning for multivessel disease.3. Severely depressed resting LVEF of 34%, which does not deteriorate with pharmacologic stress.4. Normal extracardiac tracer distribution.5. There is no prior study for comparison. Signed: Katelynn Joseph MDReport Verified Date/Time: 11/12/2018 15:26:40 Reading Location: [address] [facility] Reading Room [id number] 10:22:00 Test Item Value Reference Range Comments PARTIAL THROMBOPLASTIN TIME (BEAKER) (test 90.3 seconds 22.5-36.0 xbyb=337) HEMOGLOBIN [id number] 09:39:00 Test Item Value Reference Range Comments HEMOGLOBIN A1C (BEAKER) (test mrde=027) 12.0 % 4.3-6.1 POCT-GLUCOSE [id number] 08:37:00 Test Item Value Reference Range Comments POC-GLUCOSE METER (BEAKER) 281 mg/dL 70-110 TESTED AT [facility] [address] [facility] (test myta=5233) [facility] [address] [id number] 05:54:00 Test Item Value Reference Range Comments PARTIAL THROMBOPLASTIN TIME (BEAKER) (test 135.4 seconds 22.5-36.0 nxrn=683) CALCIUM, [id number] 05:31:00 Test Item Value Reference Range Comments CALCIUM IONIZED (BEAKER) (test mury=130) 1.10 mmol/L 1.12-1.27 PH, BLOOD (BEAKER) (test bdbn=2129) 7.39 COMPREHENSIVE METABOLIC [id number] 04:56:00 Test Item Value Reference Range Comments TOTAL PROTEIN (BEAKER) 6.2 gm/dL 6.0-8.3 Specimen slightly (test yppg=981) hemolyzed ALBUMIN (BEAKER) (test 3.3 g/dL 3.5-5.0 Specimen slightly ocbw=4578) hemolyzed ALKALINE PHOSPHATASE 98 U/L 40-150 (BEAKER) (test vdab=238) BILIRUBIN TOTAL (BEAKER) 0.5 mg/dL 0.2-1.2 Specimen slightly (test bwok=258) hemolyzed SODIUM (BEAKER) (test 134 meq/L 136-145 tlih=449) POTASSIUM (BEAKER) (test 3.4 meq/L 3.5-5.1 Specimen slightly oior=014) hemolyzed CHLORIDE (BEAKER) (test 97 meq/L 98-107 sidn=225) CO2 (BEAKER) (test 25 meq/L 22-29 fcmv=936) BLOOD UREA NITROGEN 80 mg/dL 7-21 (BEAKER) (test jsyn=140) CREATININE (BEAKER) (test 3.15 mg/dL 0.57-1.25 Specimen slightly tuwx=572) hemolyzed GLUCOSE RANDOM (BEAKER) 221 mg/dL 70-105 (test kiyr=099) CALCIUM (BEAKER) (test 8.9 mg/dL 8.4-10.2 rprn=751) AST (SGOT) (BEAKER) (test 17 U/L 5-34 Specimen slightly uycg=221) hemolyzed ALT (SGPT) (BEAKER) (test 10 U/L 6-55 Specimen slightly hyht=923) hemolyzed EGFR (BEAKER) (test 14 mL/min/1.73 sq m ESTIMATED GFR IS NOT yhgo=5928) ACCURATE CREATININE CLEARANCE IN PREDICTING GLOMERULAR FILTRATION RATE. ESTIMATED GFR IS NOT APPLICABLE FOR DIALYSIS PATIENTS. [id number] 04:52:00 Test Item Value Reference Range Comments MAGNESIUM (BEAKER) (test 2.0 mg/dL 1.6-2.6 Specimen slightly hemolyzed jrsg=228) [id number] 04:52:00 Test Item Value Reference Range Comments PHOSPHORUS (BEAKER) (test 3.5 mg/dL 2.3-4.7 Specimen slightly hemolyzed tdrg=604) LIPID [id number] 04:52:00 Test Item Value Reference Range Comments TRIGLYCERIDES (BEAKER) (test 133 mg/dL Specimen slightly hemolyzed wohp=723) CHOLESTEROL (BEAKER) (test 117 mg/dL Specimen slightly hemolyzed uzgu=969) HDL CHOLESTEROL (BEAKER) (test 33 mg/dL dlaw=524) LDL CHOLESTEROL CALCULATED 57 mg/dL (BEAKER) (test onye=837) Triglyceride Reference Range: Low Risk <150 Borderline 150- 199 High Risk 200-499 Very High Risk >=500Cholesterol Reference Range: Low Risk <200 Borderline 200-239 High Risk > 240HDL Cholesterol Reference Range: Low Risk >=60 High Risk <40LDL Cholesterol Reference Range: Optimal <100 Near Optimal 100-129 Borderline 130-159 High 160-189 Very High >=190CBC W/PLT COUNT & AUTO [id number] 04:33:00 Test Item Value Reference Range Comments WHITE BLOOD CELL COUNT (BEAKER) (test qkaf=417) 8.2 K/ L 3.5-10.5 RED BLOOD CELL COUNT (BEAKER) (test vwxh=239) 4.23 M/ L 3.93-5.22 HEMOGLOBIN (BEAKER) (test yscb=548) 12.7 GM/DL 11.2-15.7 HEMATOCRIT (BEAKER) (test urmj=859) 38.3 % 34.1-44.9 MEAN CORPUSCULAR VOLUME (BEAKER) (test iehw=859) 90.5 fL 79.4-94.8 MEAN CORPUSCULAR HEMOGLOBIN (BEAKER) (test 30.0 pg 25.6-32.2 sggw=181) MEAN CORPUSCULAR HEMOGLOBIN CONC (BEAKER) (test 33.2 GM/DL 32.2-35.5 ytqc=781) RED CELL DISTRIBUTION WIDTH (BEAKER) (test 14.7 % 11.7-14.4 guvt=478) PLATELET COUNT (BEAKER) (test znik=893) 206 K/CU MM 150-450 MEAN PLATELET VOLUME (BEAKER) (test yhgx=981) 11.0 fL 9.4-12.3 NUCLEATED RED BLOOD CELLS (BEAKER) (test 0 /100 WBC 0-0 whkr=510) NEUTROPHILS RELATIVE PERCENT (BEAKER) (test 60 % zapm=245) LYMPHOCYTES RELATIVE PERCENT (BEAKER) (test 29 % nnbr=375) MONOCYTES RELATIVE PERCENT (BEAKER) (test 8 % gdtf=040) EOSINOPHILS RELATIVE PERCENT (BEAKER) (test 2 % zdpi=948) BASOPHILS RELATIVE PERCENT (BEAKER) (test 0 % pjff=734) NEUTROPHILS ABSOLUTE COUNT (BEAKER) (test 4.96 K/ L 1.56-6.13 jyns=651) LYMPHOCYTES ABSOLUTE COUNT (BEAKER) (test 2.35 K/ L 1.18-3.74 wyrd=152) MONOCYTES ABSOLUTE COUNT (BEAKER) (test 0.65 K/ L 0.24-0.36 lsql=601) EOSINOPHILS ABSOLUTE COUNT (BEAKER) (test 0.18 K/ L 0.04-0.36 whhg=776) BASOPHILS ABSOLUTE COUNT (BEAKER) (test 0.03 K/ L 0.01-0.08 iplt=540) IMMATURE GRANULOCYTES-RELATIVE PERCENT (BEAKER) 0 % 0-1 (test jjgl=1883) [id number] 22:22:00 Test Item Value Reference Range Comments PARTIAL THROMBOPLASTIN TIME (BEAKER) (test 86.6 seconds 22.5-36.0 tehj=142) POCT-GLUCOSE [id number] 17:14:00 Test Item Value Reference Range Comments POC-GLUCOSE METER (BEAKER) 158 mg/dL 70-110 TESTED AT [address] (test uotu=4972) [place] [id number] 15:48:00 Test Item Value Reference Range Comments PARTIAL THROMBOPLASTIN TIME (BEAKER) (test 64.4 seconds 22.5-36.0 jwrx=692) POCT-GLUCOSE [id number] 12:41:00 Test Item Value Reference Range Comments POC-GLUCOSE METER (BEAKER) 275 mg/dL 70-110 TESTED AT [address] (test ttbb=4147) [place] [address] RAD, CHEST, 1 VIEW, NON [id number] 09:33:00Reason for exam:->chest painShould this be performed at the bedside?->YesFINAL REPORT Comparison: 08/14/2018 TECHNIQUE: Single view of the chest FINDINGS: Trace bilateral pleural effusions. Lungs otherwise grossly clear. Cardiac silhouette is prominent. Aortic calcifications are seen. No acute skeletal abnormality. Signed: Terry Sauer Verified Date/Time: 11/11/2018 09:33: 09 Reading Location: [address] Transitional Reading Room TROPONIColin [id number] 09:11: 00 Test Item Value Reference Range Comments TROPONIN I (BEAKER) (test xgwm=964) 0.38 ng/mL 0.00-0.03 Troponin I (TnI) levels must [...] acidosis, acute neurological disease, and persistent tachyarrhythmia.POCT-GLUCOSE [id number] 08:57:00 Test Item Value Reference Range Comments POC-GLUCOSE METER (BEAKER) 321 mg/dL 70-110 Notified SOLITARIO BUENO/TESTED AT [facility] (test vgjw=[id number]) [id number] [facility] [id number] TROPONIN [id number] 08:29:00 Test Item Value Reference Range Comments TROPONIN I (BEAKER) (test jowj=664) 0.60 ng/mL 0.00-0.03 Troponin I (TnI) levels must [...] failure, acidosis, acute neurological disease, and persistent tachyarrhythmia.BASIC METABOLIC [id number] 08:26:00 Test Item Value Reference Range Comments SODIUM (BEAKER) (test 136 meq/L 136-145 mvlk=626) POTASSIUM (BEAKER) (test 3.8 meq/L 3.5-5.1 Specimen slightly qkor=618) hemolyzed CHLORIDE (BEAKER) (test 96 meq/L 98-107 zepc=075) CO2 (BEAKER) (test 30 meq/L 22-29 wohy=043) BLOOD UREA NITROGEN 70 mg/dL 7-21 (BEAKER) (test tiig=254) CREATININE (BEAKER) (test 3.15 mg/dL 0.57-1.25 Specimen slightly mqsc=623) hemolyzed GLUCOSE RANDOM (BEAKER) 356 mg/dL 70-105 (test ndft=368) CALCIUM (BEAKER) (test 9.5 mg/dL 8.4-10.2 qfki=500) EGFR (BEAKER) (test 14 mL/min/1.73 sq m ESTIMATED GFR IS NOT ooay=7931) ACCURATE CREATININE CLEARANCE IN PREDICTING GLOMERULAR FILTRATION RATE. ESTIMATED GFR IS NOT APPLICABLE FOR DIALYSIS PATIENTS. [id number] 08:22:00 Test Item Value Reference Range Comments MAGNESIUM (BEAKER) (test 2.2 mg/dL 1.6-2.6 Specimen slightly hemolyzed efuh=862) HEPATIC FUNCTION [id number] 08:22:00 Test Item Value Reference Range Comments TOTAL PROTEIN (BEAKER) (test 7.3 gm/dL 6.0-8.3 Specimen slightly hemolyzed qvhp=005) ALBUMIN (BEAKER) (test 3.9 g/dL 3.5-5.0 Specimen slightly hemolyzed bphs=9718) BILIRUBIN TOTAL (BEAKER) (test 0.5 mg/dL 0.2-1.2 Specimen slightly hemolyzed coal=241) BILIRUBIN DIRECT (BEAKER) (test 0.2 mg/dL 0.1-0.5 Specimen slightly hemolyzed yowh=256) ALKALINE PHOSPHATASE (BEAKER) 129 U/L 40-150 (test jqyg=611) AST (SGOT) (BEAKER) (test 18 U/L 5-34 Specimen slightly hemolyzed aont=096) ALT (SGPT) (BEAKER) (test 11 U/L 6-55 Specimen slightly hemolyzed lpko=317) B-TYPE NATRIURETIC FACTOR (BNP)2018-11-11 08:22:00 Test Item Value Reference Range Comments B-TYPE NATRIURETIC PEPTIDE (BEAKER) (test 344 pg/mL 0-100 soqw=286) CBC W/PLT COUNT & AUTO [id number] 07:04:00 Test Item Value Reference Range Comments WHITE BLOOD CELL COUNT (BEAKER) (test fjrq=636) 6.0 K/ L 3.5-10.5 RED BLOOD CELL COUNT (BEAKER) (test uyrv=194) 4.74 M/ L 3.93-5.22 HEMOGLOBIN (BEAKER) (test asnp=414) 14.0 GM/DL 11.2-15.7 HEMATOCRIT (BEAKER) (test cutm=174) 43.4 % 34.1-44.9 MEAN CORPUSCULAR VOLUME (BEAKER) (test isyx=834) 91.6 fL 79.4-94.8 MEAN CORPUSCULAR HEMOGLOBIN (BEAKER) (test 29.5 pg 25.6-32.2 kjds=269) MEAN CORPUSCULAR HEMOGLOBIN CONC (BEAKER) (test 32.3 GM/DL 32.2-35.5 hskd=898) RED CELL DISTRIBUTION WIDTH (BEAKER) (test 14.6 % 11.7-14.4 ngqz=408) PLATELET COUNT (BEAKER) (test rnbq=318) 202 K/CU MM 150-450 MEAN PLATELET VOLUME (BEAKER) (test zldd=037) 11.3 fL 9.4-12.3 NUCLEATED RED BLOOD CELLS (BEAKER) (test 0 /100 WBC 0-0 rjmc=988) NEUTROPHILS RELATIVE PERCENT (BEAKER) (test 56 % iatt=148) LYMPHOCYTES RELATIVE PERCENT (BEAKER) (test 32 % ivca=366) MONOCYTES RELATIVE PERCENT (BEAKER) (test 9 % znoe=265) EOSINOPHILS RELATIVE PERCENT (BEAKER) (test 3 % gcer=063) BASOPHILS RELATIVE PERCENT (BEAKER) (test 0 % qcfu=260) NEUTROPHILS ABSOLUTE COUNT (BEAKER) (test 3.38 K/ L 1.56-6.13 rqhr=020) LYMPHOCYTES ABSOLUTE COUNT (BEAKER) (test 1.90 K/ L 1.18-3.74 bbpw=126) MONOCYTES ABSOLUTE COUNT (BEAKER) (test 0.55 K/ L 0.24-0.36 aolx=288) EOSINOPHILS ABSOLUTE COUNT (BEAKER) (test 0.15 K/ L 0.04-0.36 bolt=506) BASOPHILS ABSOLUTE COUNT (BEAKER) (test 0.02 K/ L 0.01-0.08 xuau=592) IMMATURE GRANULOCYTES-RELATIVE PERCENT (BEAKER) 1 % 0-1 (test bpgh=9650) TSH/FREE T4 IF [id number] 06:39:00 Test Item Value Reference Range Comments THYROID STIMULATING HORMONE (BEAKER) (test 1.17 uIU/mL 0.35-4.94 qlyw=572) [id number] 05:38:00 Test Item Value Reference Range Comments PROTIME (BEAKER) (test kzqs=917) 14.0 seconds 11.9-14.2 INR (BEAKER) (test lpnh=578) 1.1 <=5.9 PARTIAL THROMBOPLASTIN TIME (BEAKER) (test 37.2 seconds 22.5-36.0 zxkf=265) Effective 07/18/2018: PT Reference Range ChangeNew: 11.9-14.2 Previous: 11.7- 14.7RECOMMENDED COUMADIN/WARFARIN INR THERAPY RANGESSTANDARD DOSE: 2.0-3.0 Includes: PROPHYLAXIS for venous thrombosis, systemic embolization; TREATMENT for venous thrombosis and/or pulmonary embolus.HIGH RISK: Target INR is2.5-3.5 for patients wiht mechanical heart valves.POCT-GLUCOSE [id number] 12:11:00 Test Item Value Reference Range Comments POC-GLUCOSE METER (BEAKER) 111 mg/dL 70-110 TESTED AT [facility] [address] (test emdu=7960) [facility] [address] CBC W/PLT COUNT & AUTO [id number] 10:11:00 Test Item Value Reference Range Comments WHITE BLOOD CELL COUNT 4.7 K/ L 3.5-10.5 (BEAKER) (test jhoa=940) RED BLOOD CELL COUNT (BEAKER) 3.14 M/ L 3.93-5.22 (test dnnq=384) HEMOGLOBIN (BEAKER) (test 10.1 GM/DL 11.2-15.7 pynl=992) HEMATOCRIT (BEAKER) (test 34.0 % 34.1-44.9 uwkv=328) MEAN CORPUSCULAR VOLUME 108.3 fL 79.4-94.8 Discordant results compared (BEAKER) (test jmbe=048) to previous result; clinical correlation required. MEAN CORPUSCULAR HEMOGLOBIN 32.2 pg 25.6-32.2 (BEAKER) (test huqd=792) MEAN CORPUSCULAR HEMOGLOBIN 29.7 GM/DL 32.2-35.5 CONC (BEAKER) (test hygl=491) RED CELL DISTRIBUTION WIDTH 18.5 % 11.7-14.4 (BEAKER) (test dexh=776) PLATELET COUNT (BEAKER) (test 186 K/CU MM 150-450 cean=830) MEAN PLATELET VOLUME (BEAKER) 9.5 fL 9.4-12.3 (test iovl=214) NUCLEATED RED BLOOD CELLS 0 /100 WBC 0-0 (BEAKER) (test zvwz=557) NEUTROPHILS RELATIVE PERCENT 67 % (BEAKER) (test mzox=189) LYMPHOCYTES RELATIVE PERCENT 14 % (BEAKER) (test wsae=905) MONOCYTES RELATIVE PERCENT 14 % (BEAKER) (test mhkj=618) EOSINOPHILS RELATIVE PERCENT 3 % (BEAKER) (test nobs=096) BASOPHILS RELATIVE PERCENT 1 % (BEAKER) (test gfxg=409) NEUTROPHILS ABSOLUTE COUNT 3.16 K/ L 1.56-6.13 (BEAKER) (test cclg=220) LYMPHOCYTES ABSOLUTE COUNT 0.67 K/ L 1.18-3.74 (BEAKER) (test tcmr=602) MONOCYTES ABSOLUTE COUNT 0.65 K/ L 0.24-0.36 (BEAKER) (test hbzr=136) EOSINOPHILS ABSOLUTE COUNT 0.15 K/ L 0.04-0.36 (BEAKER) (test ogzd=269) BASOPHILS ABSOLUTE COUNT 0.03 K/ L 0.01-0.08 (BEAKER) (test bgaj=671) IMMATURE 1 % 0-1 GRANULOCYTES-RELATIVE PERCENT (BEAKER) (test frtv=6472) POCT-GLUCOSE [id number] 07:46:00 Test Item Value Reference Range Comments POC-GLUCOSE METER (BEAKER) 79 mg/dL 70-110 TESTED AT [address] (test yoew=4136) [place] [address] BASIC METABOLIC [id number] 06:22:00 Test Item Value Reference Range Comments SODIUM (BEAKER) (test 136 meq/L 136-145 vdfh=168) POTASSIUM (BEAKER) (test 4.0 meq/L 3.5-5.1 xzlc=871) CHLORIDE (BEAKER) (test 100 meq/L 98-107 cqxz=354) CO2 (BEAKER) (test 26 meq/L 22-29 jlkq=372) BLOOD UREA NITROGEN 55 mg/dL 7-21 (BEAKER) (test jvev=500) CREATININE (BEAKER) (test 2.87 mg/dL 0.57-1.25 atcn=990) GLUCOSE RANDOM (BEAKER) 79 mg/dL 70-105 (test sino=899) CALCIUM (BEAKER) (test 8.6 mg/dL 8.4-10.2 tgpk=529) EGFR (BEAKER) (test 16 mL/min/1.73 sq m ESTIMATED GFR IS NOT llbb=0392) ACCURATE CREATININE CLEARANCE IN PREDICTING GLOMERULAR FILTRATION RATE. ESTIMATED GFR IS NOT APPLICABLE FOR DIALYSIS PATIENTS. POCT-GLUCOSE [id number] 20:51:00 Test Item Value Reference Range Comments POC-GLUCOSE METER (BEAKER) 176 mg/dL 70-110 TESTED AT [address] (test wwuk=7371) [place] [address] POCT-GLUCOSE [id number] 18:25:00 Test Item Value Reference Range Comments POC-GLUCOSE METER (BEAKER) 84 mg/dL 70-110 TESTED AT [address] (test kxmg=7769) [place] [address] POCT-GLUCOSE [id number] 12:54:00 Test Item Value Reference Range Comments POC-GLUCOSE METER (BEAKER) 111 mg/dL 70-110 TESTED AT [address] (test frhf=2918) [place] [address] POCT-GLUCOSE [id number] 08:25:00 Test Item Value Reference Range Comments POC-GLUCOSE METER (BEAKER) 105 mg/dL 70-110 TESTED AT [address] (test ompo=4121) [place] [address] BASIC METABOLIC [id number] 06:26:00 Test Item Value Reference Range Comments SODIUM (BEAKER) (test 137 meq/L 136-145 rwmd=358) POTASSIUM (BEAKER) (test 3.9 meq/L 3.5-5.1 trvi=264) CHLORIDE (BEAKER) (test 100 meq/L 98-107 npms=518) CO2 (BEAKER) (test 28 meq/L 22-29 mkih=299) BLOOD UREA NITROGEN 53 mg/dL 7-21 (BEAKER) (test zxbm=454) CREATININE (BEAKER) (test 3.07 mg/dL 0.57-1.25 gjiw=914) GLUCOSE RANDOM (BEAKER) 71 mg/dL 70-105 (test ykew=608) CALCIUM (BEAKER) (test 8.6 mg/dL 8.4-10.2 npcd=885) EGFR (BEAKER) (test 15 mL/min/1.73 sq m ESTIMATED GFR IS NOT xpqa=3066) ACCURATE CREATININE CLEARANCE IN PREDICTING GLOMERULAR FILTRATION RATE. ESTIMATED GFR IS NOT APPLICABLE FOR DIALYSIS PATIENTS. POCT-GLUCOSE [id number] 04:25:00 Test Item Value Reference Range Comments POC-GLUCOSE METER (BEAKER) 81 mg/dL 70-110 TESTED AT [address] (test ypmo=4448) [place] [address] POCT-GLUCOSE [id number] 21:58:00 Test Item Value Reference Range Comments POC-GLUCOSE METER (BEAKER) 164 mg/dL 70-110 TESTED AT [address] (test ndnr=2485) [place] [address] POCT-GLUCOSE [id number] 18:38:00 Test Item Value Reference Range Comments POC-GLUCOSE METER (BEAKER) 98 mg/dL 70-110 TESTED AT [address] (test fwnx=4770) [place] [address] POCT-GLUCOSE [id number] 13:14:00 Test Item Value Reference Range Comments POC-GLUCOSE METER (BEAKER) 105 mg/dL 70-110 TESTED AT [address] (test xnay=5713) [place] [address] POCT-GLUCOSE [id number] 08:12:00 Test Item Value Reference Range Comments POC-GLUCOSE METER (BEAKER) 115 mg/dL 70-110 TESTED AT [address] (test bsfz=1318) [place] [address] BASIC METABOLIC [id number] 07:37:00 Test Item Value Reference Range Comments SODIUM (BEAKER) (test 136 meq/L 136-145 wdia=671) POTASSIUM (BEAKER) (test 3.7 meq/L 3.5-5.1 etvt=712) CHLORIDE (BEAKER) (test 98 meq/L 98-107 duss=420) CO2 (BEAKER) (test 28 meq/L 22-29 rrig=767) BLOOD UREA NITROGEN 54 mg/dL 7-21 (BEAKER) (test jqpa=079) CREATININE (BEAKER) (test 3.37 mg/dL 0.57-1.25 npuw=158) GLUCOSE RANDOM (BEAKER) 85 mg/dL 70-105 (test kszz=515) CALCIUM (BEAKER) (test 8.5 mg/dL 8.4-10.2 kjkg=670) EGFR (BEAKER) (test 13 mL/min/1.73 sq m ESTIMATED GFR IS NOT frar=1836) ACCURATE CREATININE CLEARANCE IN PREDICTING GLOMERULAR FILTRATION RATE. ESTIMATED GFR IS NOT APPLICABLE FOR DIALYSIS PATIENTS. POCT-GLUCOSE [id number] 07:22:00 Test Item Value Reference Range Comments POC-GLUCOSE METER (BEAKER) 128 mg/dL 70-110 TESTED AT [address] (test szky=0757) [place] [address] POCT-GLUCOSE [id number] 04:05:00 Test Item Value Reference Range Comments POC-GLUCOSE METER (BEAKER) 95 mg/dL 70-110 TESTED AT [address] (test xkdl=7647) [facility] [address] POCT-GLUCOSE [id number] 04:05:00 Test Item Value Reference Range Comments POC-GLUCOSE METER (BEAKER) 68 mg/dL 70-110 TESTED AT [address] (test qoau=6920) [facility] [address] POCT-GLUCOSE [id number] 04:05:00 Test Item Value Reference Range Comments POC-GLUCOSE METER (BEAKER) 52 mg/dL 70-110 TESTED AT [address] (test uppq=4427) [facility] [address] POCT-GLUCOSE [id number] 22:26:00 Test Item Value Reference Range Comments POC-GLUCOSE METER (BEAKER) 132 mg/dL 70-110 TESTED AT [address] (test swks=9569) [place] [id number] POCT-GLUCOSE [id number] 19:58:00 Test Item Value Reference Range Comments POC-GLUCOSE METER (BEAKER) 134 mg/dL 70-110 TESTED AT [address] (test ablv=6935) [facility] [address] POCT-GLUCOSE [id number] 13:11:00 Test Item Value Reference Range Comments POC-GLUCOSE METER (BEAKER) 148 mg/dL 70-110 TESTED AT [address] (test ufqq=1673) [facility] [address] POCT-GLUCOSE [id number] 12:30:00 Test Item Value Reference Range Comments POC-GLUCOSE METER (BEAKER) 183 mg/dL 70-110 TESTED AT [address] (test svgw=7574) [place] [id number] CBC W/PLT COUNT & AUTO [id number] 10:37:00 Test Item Value Reference Range Comments WHITE BLOOD CELL COUNT (BEAKER) (test ecrd=427) 7.4 K/ L 3.5-10.5 RED BLOOD CELL COUNT (BEAKER) (test agnn=122) 3.03 M/ L 3.93-5.22 HEMOGLOBIN (BEAKER) (test zete=771) 9.5 GM/DL 11.2-15.7 HEMATOCRIT (BEAKER) (test fwiv=586) 31.4 % 34.1-44.9 MEAN CORPUSCULAR VOLUME (BEAKER) (test ztyb=113) 103.6 fL 79.4-94.8 MEAN CORPUSCULAR HEMOGLOBIN (BEAKER) (test 31.4 pg 25.6-32.2 natm=637) MEAN CORPUSCULAR HEMOGLOBIN CONC (BEAKER) (test 30.3 GM/DL 32.2-35.5 oczl=301) RED CELL DISTRIBUTION WIDTH (BEAKER) (test 18.8 % 11.7-14.4 rexy=348) PLATELET COUNT (BEAKER) (test jbas=712) 205 K/CU MM 150-450 MEAN PLATELET VOLUME (BEAKER) (test fqiz=843) 9.8 fL 9.4-12.3 NUCLEATED RED BLOOD CELLS (BEAKER) (test 0 /100 WBC 0-0 lbhj=526) NEUTROPHILS RELATIVE PERCENT (BEAKER) (test 70 % bqyc=241) LYMPHOCYTES RELATIVE PERCENT (BEAKER) (test 11 % fqmu=257) MONOCYTES RELATIVE PERCENT (BEAKER) (test 15 % qujt=075) EOSINOPHILS RELATIVE PERCENT (BEAKER) (test 2 % vcbt=570) BASOPHILS RELATIVE PERCENT (BEAKER) (test 0 % oeei=769) NEUTROPHILS ABSOLUTE COUNT (BEAKER) (test 5.19 K/ L 1.56-6.13 rzzy=456) LYMPHOCYTES ABSOLUTE COUNT (BEAKER) (test 0.82 K/ L 1.18-3.74 fuqn=928) MONOCYTES ABSOLUTE COUNT (BEAKER) (test 1.13 K/ L 0.24-0.36 zkyh=703) EOSINOPHILS ABSOLUTE COUNT (BEAKER) (test 0.14 K/ L 0.04-0.36 fhas=593) BASOPHILS ABSOLUTE COUNT (BEAKER) (test 0.03 K/ L 0.01-0.08 plfq=074) IMMATURE GRANULOCYTES-RELATIVE PERCENT (BEAKER) 1 % 0-1 (test ldph=2051) POCT-GLUCOSE [id number] 08:09:00 Test Item Value Reference Range Comments POC-GLUCOSE METER (BEAKER) 99 mg/dL 70-110 TESTED AT [facility] [address] [facility] (test kenh=3386) [facility] [address] BASIC METABOLIC [id number] 05:41:00 Test Item Value Reference Range Comments SODIUM (BEAKER) (test 136 meq/L 136-145 yvmu=865) POTASSIUM (BEAKER) (test 4.1 meq/L 3.5-5.1 asqv=751) CHLORIDE (BEAKER) (test 99 meq/L 98-107 rslk=050) CO2 (BEAKER) (test 29 meq/L 22-29 dzmt=578) BLOOD UREA NITROGEN 46 mg/dL 7-21 (BEAKER) (test vrnd=095) CREATININE (BEAKER) (test 3.01 mg/dL 0.57-1.25 egrc=364) GLUCOSE RANDOM (BEAKER) 107 mg/dL 70-105 (test xiee=822) CALCIUM (BEAKER) (test 8.5 mg/dL 8.4-10.2 jeub=049) EGFR (BEAKER) (test 15 mL/min/1.73 sq m ESTIMATED GFR IS NOT mezv=8302) ACCURATE CREATININE CLEARANCE IN PREDICTING GLOMERULAR FILTRATION RATE. ESTIMATED GFR IS NOT APPLICABLE FOR DIALYSIS PATIENTS. POCT-GLUCOSE [id number] 21:42:00 Test Item Value Reference Range Comments POC-GLUCOSE METER (BEAKER) 171 mg/dL 70-110 TESTED AT [address] (test ceiz=1950) [place] [address] POCT-GLUCOSE [id number] 18:03:00 Test Item Value Reference Range Comments POC-GLUCOSE METER (BEAKER) 123 mg/dL 70-110 TESTED AT [address] (test chuc=1306) [place] [address] POCT-GLUCOSE [id number] 12:52:00 Test Item Value Reference Range Comments POC-GLUCOSE METER (BEAKER) 167 mg/dL 70-110 TESTED AT [address] (test kxlf=2406) [place] [address] POCT-GLUCOSE [id number] 09:05:00 Test Item Value Reference Range Comments POC-GLUCOSE METER (BEAKER) 128 mg/dL 70-110 TESTED AT [address] (test kfmr=3675) [place] [address] CT, PELVIS, WO [id number] 08:42:00FINAL REPORT CT pelvis without contrast HISTORY: [...] MDReport Verified Date/Time: 08/16/2018 08:42:53 Reading Location: [facility] Radiology Reading Room BASIC METABOLIC [id number] 05:58:00 Test Item Value Reference Range Comments SODIUM (BEAKER) (test 137 meq/L 136-145 zvlx=917) POTASSIUM (BEAKER) (test 4.2 meq/L 3.5-5.1 lmhs=857) CHLORIDE (BEAKER) (test 100 meq/L 98-107 lufk=024) CO2 (BEAKER) (test 28 meq/L 22-29 ayfk=597) BLOOD UREA NITROGEN 48 mg/dL 7-21 (BEAKER) (test zjrd=132) CREATININE (BEAKER) (test 2.88 mg/dL 0.57-1.25 lklx=187) GLUCOSE RANDOM (BEAKER) 115 mg/dL 70-105 (test joud=678) CALCIUM (BEAKER) (test 8.7 mg/dL 8.4-10.2 lirh=962) EGFR (BEAKER) (test 16 mL/min/1.73 sq m ESTIMATED GFR IS NOT zcit=0860) ACCURATE CREATININE CLEARANCE IN PREDICTING GLOMERULAR FILTRATION RATE. ESTIMATED GFR IS NOT APPLICABLE FOR DIALYSIS PATIENTS. POCT-GLUCOSE [id number] 03:05:00 Test Item Value Reference Range Comments POC-GLUCOSE METER (BEAKER) 157 mg/dL 70-110 TESTED AT [address] (test mikq=0280) [facility] [address] POCT-GLUCOSE [id number] 20:57:00 Test Item Value Reference Range Comments POC-GLUCOSE METER (BEAKER) 106 mg/dL 70-110 TESTED AT [address] (test hrwq=3486) [facility] [address] POCT-GLUCOSE [id number] 18:13:00 Test Item Value Reference Range Comments POC-GLUCOSE METER (BEAKER) 237 mg/dL 70-110 TESTED AT [address] (test izxh=4954) [facility] [address] POCT-GLUCOSE [id number] 13:47:00 Test Item Value Reference Range Comments POC-GLUCOSE METER (BEAKER) 172 mg/dL 70-110 TESTED AT [address] (test vfjv=5379) [facility] [address] POCT-GLUCOSE [id number] 08:50:00 Test Item Value Reference Range Comments POC-GLUCOSE METER (BEAKER) 155 mg/dL 70-110 TESTED AT [address] (test cmlf=8565) [facility] [address] BASIC METABOLIC [id number] 06:36:00 Test Item Value Reference Range Comments SODIUM (BEAKER) (test 134 meq/L 136-145 sebg=652) POTASSIUM (BEAKER) (test 3.6 meq/L 3.5-5.1 pctz=899) CHLORIDE (BEAKER) (test 100 meq/L 98-107 vxwj=183) CO2 (BEAKER) (test 26 meq/L 22-29 onda=120) BLOOD UREA NITROGEN 47 mg/dL 7-21 (BEAKER) (test nbaw=538) CREATININE (BEAKER) (test 3.21 mg/dL 0.57-1.25 inqx=722) GLUCOSE RANDOM (BEAKER) 139 mg/dL 70-105 (test euir=188) CALCIUM (BEAKER) (test 8.3 mg/dL 8.4-10.2 ssra=115) EGFR (BEAKER) (test 14 mL/min/1.73 sq m ESTIMATED GFR IS NOT proi=4850) ACCURATE CREATININE CLEARANCE IN PREDICTING GLOMERULAR FILTRATION RATE. ESTIMATED GFR IS NOT APPLICABLE FOR DIALYSIS PATIENTS. POCT-GLUCOSE [id number] 22:53:00 Test Item Value Reference Range Comments POC-GLUCOSE METER (BEAKER) 231 mg/dL 70-110 TESTED AT [place] [id number] [facility] (test jgra=1796) [place] [address] POCT-GLUCOSE [id number] 17:51:00 Test Item Value Reference Range Comments POC-GLUCOSE METER (BEAKER) 169 mg/dL 70-110 TESTED AT [place] [id number] [facility] (test miue=7630) [place] [address] RESPIRATORY PANEL [id number] 15:45:00 Test Item Value Reference Range Comments HUMAN METAPNEUMOVIRUS (BEAKER) (test Not detected Not detected, Equivocal uuqw=7627) RHINOVIRUS (BEAKER) (test lrdb=3262) Not detected Not detected, Equivocal INFLUENZA A (BEAKER) (test otty=4126) Not detected Not detected, Equivocal INFLUENZA A (NO SUBTYPE) (test Not detected, Equivocal zrpl=3996) INFLUENZA A SUBTYPE H1 (BEAKER) (test Not detected, Equivocal umks=6785) INFLUENZA A SUBTYPE H3 (BEAKER) (test Not detected, Equivocal ikwu=1502) INFLUENZA A SUBTYPE H1-2009 (BEAKER) Not detected, Equivocal (test rzms=5654) INFLUENZA B (BEAKER) (test haix=5911) Not detected Not detected, Equivocal RESPIRATORY SYNCYTIAL VIRUS (BEAKER) Not detected Not detected, Equivocal (test gdwg=9618) PARAINFLUENZA VIRUS 1 (BEAKER) (test Not detected Not detected, Equivocal cbtn=0754) PARAINFLUENZA VIRUS 2 (BEAKER) (test Not detected Not detected, Equivocal zzfs=0462) PARAINFLUENZA VIRUS 3 (BEAKER) (test Not detected Not detected, Equivocal rqgf=7475) PARAINFLUENZA VIRUS 4 (BEAKER) (test Not detected Not detected, Equivocal rlcg=3876) ADENOVIRUS (BEAKER) (test jpyb=5614) Not detected Not detected, Equivocal CORONAVIRUS 229E (BEAKER) (test Not detected Not detected, Equivocal wzor=6449) CORONAVIRUS HKU1 (BEAKER) (test Not detected Not detected, Equivocal lang=5207) CORONAVIRUS NL63 (BEAKER) (test Not detected Not detected, Equivocal uqbu=0677) CORONAVIRUS OC43 (BEAKER) (test Not detected Not detected, Equivocal yupv=0494) BORDETELLA PERTUSSIS (BEAKER) (test Not detected Not detected, Equivocal yitx=8045) CHLAMYDOPHILA PNEUMONIAE (BEAKER) (test Not detected Not detected, Equivocal yqgp=1901) MYCOPLASMA PNEUMONIAE (BEAKER) (test Not detected Not detected, Equivocal osgb=5354) Other viruses and bacteria not targeted by [...] [facility] using the NetotiateArray Respiratory Panel. It is FDA cleared and has been verified and approved by the [facility] Molecular Diagnostics Laboratory for clinical use on nasopharyngeal swab specimens.The performance of the FilmArrayRP has not been established in individuals who received influenza vaccine. Recent administration ofa nasal influenza vaccine may cause false positive results for Influenza A and/orInfluenza B.URINALYSIS W/ REFLEX URINE [id number] 12:32 :00 Test Item Value Reference Range Comments COLOR (BEAKER) (test byfo=551) Light Yellow CLARITY (BEAKER) (test ioyb=178) Hazy SPECIFIC GRAVITY UA (BEAKER) (test cwel=497) 1.009 1.001-1.035 PH UA (BEAKER) (test aemu=037) 6.0 5.0-8.0 PROTEIN UA (BEAKER) (test xgmr=193) 30 mg/dL Negative GLUCOSE UA (BEAKER) (test aqbz=309) Negative Negative KETONES UA (BEAKER) (test yydr=060) Negative Negative BILIRUBIN UA (BEAKER) (test xomm=305) Negative Negative BLOOD UA (BEAKER) (test vtpy=234) Small Negative NITRITE UA (BEAKER) (test nyhx=887) Negative Negative LEUKOCYTE ESTERASE UA (BEAKER) (test ysyn=097) Large Negative UROBILINOGEN UA (BEAKER) (test vgpl=847) 0.2 mg/dL 0.2-1.0 RBC UA (BEAKER) (test izkl=318) 0 /HPF WBC UA (BEAKER) (test snem=397) > /HPF BACTERIA (BEAKER) (test kbht=483) Many SQUAMOUS EPITHELIAL (BEAKER) (test dpzv=338) < /HPF RENAL EPITHELIAL (BEAKER) (test qxip=9103) 15 /HPF WBC CASTS (BEAKER) (test ysfi=4943) 14 /LPF SOURCE(BEAKER) (test vobm=7827) POCT-GLUCOSE [id number] 12:29:00 Test Item Value Reference Range Comments POC-GLUCOSE METER (BEAKER) 222 mg/dL 70-110 TESTED AT [facility] [address] (test ukwa=0620) [facility] [address] CBC W/PLT COUNT & AUTO [id number] 10:12:00 Test Item Value Reference Range Comments WHITE BLOOD CELL COUNT (BEAKER) (test ghxx=281) 11.6 K/ L 3.5-10.5 RED BLOOD CELL COUNT (BEAKER) (test idtw=510) 2.77 M/ L 3.93-5.22 HEMOGLOBIN (BEAKER) (test brbo=486) 8.7 GM/DL 11.2-15.7 HEMATOCRIT (BEAKER) (test nmrq=969) 27.2 % 34.1-44.9 MEAN CORPUSCULAR VOLUME (BEAKER) (test bbjq=004) 98.2 fL 79.4-94.8 MEAN CORPUSCULAR HEMOGLOBIN (BEAKER) (test 31.4 pg 25.6-32.2 mhmb=507) MEAN CORPUSCULAR HEMOGLOBIN CONC (BEAKER) (test 32.0 GM/DL 32.2-35.5 ovtu=033) RED CELL DISTRIBUTION WIDTH (BEAKER) (test 17.4 % 11.7-14.4 cgow=696) PLATELET COUNT (BEAKER) (test oexx=077) 209 K/CU MM 150-450 MEAN PLATELET VOLUME (BEAKER) (test rnpm=569) 10.2 fL 9.4-12.3 NUCLEATED RED BLOOD CELLS (BEAKER) (test 1 /100 WBC 0-0 nyqb=560) (CELLAVISION MANUAL DIFF)2018-08-14 10:12:00 Test Item Value Reference Range Comments NEUTROPHILS - REL (CELLAVISION)(BEAKER) (test 86 % nluk=8284) LYMPHOCYTES - REL (CELLAVISION)(BEAKER) (test 4 % qxkb=2244) MONOCYTES - REL (CELLAVISION)(BEAKER) (test 5 % eyss=4858) EOSINOPHILS - REL (CELLAVISION)(BEAKER) (test 2 % psap=2006) METAMYELOCYTES - REL (CELLAVISION)(BEAKER) (test 2 % 0-0 keze=8348) MYELOCYTES - REL (CELLAVISION)(BEAKER) (test 1 % 0-0 hymr=1802) NEUTROPHILS - ABS (CELLAVISION)(BEAKER) (test 9.98 K/ul 1.56-6.13 jfjw=8361) LYMPHOCYTES - ABS (CELLAVISION)(BEAKER) (test 0.46 K/ul 1.18-3.74 buln=0487) MONOCYTES - ABS (CELLAVISION)(BEAKER) (test 0.58 K/uL 0.24-0.36 jfca=4707) EOSINOPHILS - ABS (CELLAVISION)(BEAKER) (test 0.23 K/uL 0.04-0.36 nhxv=9502) METAMYELOCYTES - ABS (CELLAVISION)(BEAKER) (test 0.23 K/uL 0.00-0.00 wdex=0281) MYELOCYTES-ABS (CELLAVISION)(BEAKER) (test 0.12 K/uL 0.00-0.00 snbq=6186) TOTAL COUNTED (BEAKER) (test jccq=2926) 100 MANUAL NRBC PER 100 CELLS (BEAKER) (test 1 /100 WBC 0-0 awup=6869) WBC MORPHOLOGY (BEAKER) (test hlxh=110) Normal PLT MORPHOLOGY (BEAKER) (test pkmw=710) Normal POLYCHROMATOPHILLIC RBCS(BEAKER) (test ugio=020) 1+ few HYPOCHROMIA (BEAKER) (test phvf=845) 1+ few ARTIFACT (CELLAVISION)(BEAKER) (test nfjt=4672) Present PLATELET CONCENTRATION (CELLAVISION)(BEAKER) Adequate (test wajy=1181) Received comment: User comments: Slide comments:RAD, CHEST, 1 VIEW, NON [id number] -06-25 09:50:00Reason for exam:->coughShould this be performed at [...] Verified Date/Time: 08/14/2018 09:50:21 Reading Location : [facility] Radiology Reading Room POCT-GLUCOSE [id number] 08:20:00 Test Item Value Reference Range Comments POC-GLUCOSE METER (BEAKER) 126 mg/dL 70-110 TESTED AT [facility] [address] (test wpre=6932) [facility] [address] COMPREHENSIVE METABOLIC [id number] 07:13:00 Test Item Value Reference Range Comments TOTAL PROTEIN (BEAKER) 5.5 gm/dL 6.0-8.3 (test tudm=665) ALBUMIN (BEAKER) (test 3.1 g/dL 3.5-5.0 ruhi=5310) ALKALINE PHOSPHATASE 67 U/L 40-150 (BEAKER) (test zkrs=089) BILIRUBIN TOTAL (BEAKER) 0.6 mg/dL 0.2-1.2 (test lwpl=698) SODIUM (BEAKER) (test 135 meq/L 136-145 notr=236) POTASSIUM (BEAKER) (test 3.8 meq/L 3.5-5.1 bmpa=206) CHLORIDE (BEAKER) (test 99 meq/L 98-107 nnnd=891) CO2 (BEAKER) (test 27 meq/L 22-29 qidm=136) BLOOD UREA NITROGEN 45 mg/dL 7-21 (BEAKER) (test yxee=085) CREATININE (BEAKER) (test 3.56 mg/dL 0.57-1.25 ugtu=415) GLUCOSE RANDOM (BEAKER) 116 mg/dL 70-105 (test neto=072) CALCIUM (BEAKER) (test 8.5 mg/dL 8.4-10.2 gpyr=298) AST (SGOT) (BEAKER) (test 30 U/L 5-34 jlkf=472) ALT (SGPT) (BEAKER) (test 18 U/L 6-55 yggs=110) EGFR (BEAKER) (test 12 mL/min/1.73 sq m ESTIMATED GFR IS NOT pmzx=6144) ACCURATE CREATININE CLEARANCE IN PREDICTING GLOMERULAR FILTRATION RATE. ESTIMATED GFR IS NOT APPLICABLE FOR DIALYSIS PATIENTS. [id number] 06:59:00 Test Item Value Reference Range Comments PHOSPHORUS (BEAKER) (test iflx=019) 2.3 mg/dL 2.3-4.7 [id number] 06:59:00 Test Item Value Reference Range Comments MAGNESIUM (BEAKER) (test hfls=896) 2.0 mg/dL 1.6-2.6 CALCIUM, [id number] 06:47:00 Test Item Value Reference Range Comments CALCIUM IONIZED (BEAKER) (test ebrb=620) 1.04 mmol/L 1.12-1.27 PH, BLOOD (BEAKER) (test tnmj=1442) 7.38 POCT-GLUCOSE [id number] 23:29:00 Test Item Value Reference Range Comments POC-GLUCOSE METER (BEAKER) 196 mg/dL 70-110 TESTED AT [address] (test dqjw=8436) [place] [id number] POCT-GLUCOSE [id number] 17:42:00 Test Item Value Reference Range Comments POC-GLUCOSE METER (BEAKER) 179 mg/dL 70-110 TESTED AT [address] (test ugdw=0555) [place] [id number] POCT-GLUCOSE [id number] 12:19:00 Test Item Value Reference Range Comments POC-GLUCOSE METER (BEAKER) 189 mg/dL 70-110 TESTED AT [address] (test sjrn=4509) [place] [id number] POCT-GLUCOSE [id number] 08:34:00 Test Item Value Reference Range Comments POC-GLUCOSE METER (BEAKER) 119 mg/dL 70-110 TESTED AT [address] (test xsiw=8101) [place] [id number] COMPREHENSIVE METABOLIC [id number] 02:54:00 Test Item Value Reference Range Comments TOTAL PROTEIN (BEAKER) 5.8 gm/dL 6.0-8.3 (test bhwt=776) ALBUMIN (BEAKER) (test 3.2 g/dL 3.5-5.0 ixis=4750) ALKALINE PHOSPHATASE 65 U/L 40-150 (BEAKER) (test tksx=880) BILIRUBIN TOTAL (BEAKER) 0.8 mg/dL 0.2-1.2 (test qiyi=061) SODIUM (BEAKER) (test 134 meq/L 136-145 svkn=455) POTASSIUM (BEAKER) (test 3.6 meq/L 3.5-5.1 xltx=946) CHLORIDE (BEAKER) (test 100 meq/L 98-107 yigr=969) CO2 (BEAKER) (test 25 meq/L 22-29 aywn=513) BLOOD UREA NITROGEN 43 mg/dL 7-21 (BEAKER) (test zygz=640) CREATININE (BEAKER) (test 3.41 mg/dL 0.57-1.25 cuoq=417) GLUCOSE RANDOM (BEAKER) 90 mg/dL 70-105 (test ydwq=872) CALCIUM (BEAKER) (test 8.4 mg/dL 8.4-10.2 qafm=593) AST (SGOT) (BEAKER) (test 25 U/L 5-34 vbfl=974) ALT (SGPT) (BEAKER) (test 16 U/L 6-55 ysus=701) EGFR (BEAKER) (test 13 mL/min/1.73 sq m ESTIMATED GFR IS NOT raof=6139) ACCURATE CREATININE CLEARANCE IN PREDICTING GLOMERULAR FILTRATION RATE. ESTIMATED GFR IS NOT APPLICABLE FOR DIALYSIS PATIENTS. [id number] 02:48:00 Test Item Value Reference Range Comments PHOSPHORUS (BEAKER) (test umax=588) 2.2 mg/dL 2.3-4.7 [id number] 02:48:00 Test Item Value Reference Range Comments MAGNESIUM (BEAKER) (test ecul=532) 1.5 mg/dL 1.6-2.6 CALCIUM, [id number] 02:32:00 Test Item Value Reference Range Comments CALCIUM IONIZED (BEAKER) (test usee=687) 0.93 mmol/L 1.12-1.27 PH, BLOOD (BEAKER) (test cebx=2809) 7.53 CBC W/PLT COUNT & AUTO [id number] 02:31:00 Test Item Value Reference Range Comments WHITE BLOOD CELL COUNT (BEAKER) (test tnwi=054) 12.6 K/ L 3.5-10.5 RED BLOOD CELL COUNT (BEAKER) (test umnk=043) 2.95 M/ L 3.93-5.22 HEMOGLOBIN (BEAKER) (test odrp=353) 9.3 GM/DL 11.2-15.7 HEMATOCRIT (BEAKER) (test fkiy=211) 29.5 % 34.1-44.9 MEAN CORPUSCULAR VOLUME (BEAKER) (test vbnv=766) 100.0 fL 79.4-94.8 MEAN CORPUSCULAR HEMOGLOBIN (BEAKER) (test 31.5 pg 25.6-32.2 fryp=574) MEAN CORPUSCULAR HEMOGLOBIN CONC (BEAKER) (test 31.5 GM/DL 32.2-35.5 lbdz=256) RED CELL DISTRIBUTION WIDTH (BEAKER) (test 17.2 % 11.7-14.4 yxbl=091) PLATELET COUNT (BEAKER) (test wfsg=227) 198 K/CU MM 150-450 MEAN PLATELET VOLUME (BEAKER) (test unwg=339) 9.9 fL 9.4-12.3 NUCLEATED RED BLOOD CELLS (BEAKER) (test 2 /100 WBC 0-0 zuua=761) NEUTROPHILS RELATIVE PERCENT (BEAKER) (test 72 % zwdn=822) LYMPHOCYTES RELATIVE PERCENT (BEAKER) (test 12 % seik=809) MONOCYTES RELATIVE PERCENT (BEAKER) (test 12 % vqyb=045) EOSINOPHILS RELATIVE PERCENT (BEAKER) (test 1 % bays=016) BASOPHILS RELATIVE PERCENT (BEAKER) (test 0 % ohcy=047) NEUTROPHILS ABSOLUTE COUNT (BEAKER) (test 9.10 K/ L 1.56-6.13 jgre=397) LYMPHOCYTES ABSOLUTE COUNT (BEAKER) (test 1.47 K/ L 1.18-3.74 xfnu=199) MONOCYTES ABSOLUTE COUNT (BEAKER) (test 1.48 K/ L 0.24-0.36 tqia=621) EOSINOPHILS ABSOLUTE COUNT (BEAKER) (test 0.18 K/ L 0.04-0.36 jcvz=313) BASOPHILS ABSOLUTE COUNT (BEAKER) (test 0.04 K/ L 0.01-0.08 ohbk=869) IMMATURE GRANULOCYTES-RELATIVE PERCENT (BEAKER) 3 % 0-1 (test anrl=0931) POCT-GLUCOSE [id number] 02:17:00 Test Item Value Reference Range Comments POC-GLUCOSE METER (BEAKER) 97 mg/dL 70-110 TESTED AT [address] (test qzyv=5023) [facility] [address] POCT-GLUCOSE [id number] 21:04:00 Test Item Value Reference Range Comments POC-GLUCOSE METER (BEAKER) 147 mg/dL 70-110 TESTED AT [address] (test etyy=6291) [facility] [address] POCT-GLUCOSE [id number] 17:42:00 Test Item Value Reference Range Comments POC-GLUCOSE METER (BEAKER) 172 mg/dL 70-110 TESTED AT [address] (test cffo=5181) [facility] [address] POCT-GLUCOSE [id number] 12:05:00 Test Item Value Reference Range Comments POC-GLUCOSE METER (BEAKER) 124 mg/dL 70-110 TESTED AT [address] (test pmjr=2305) [facility] [address] POCT-GLUCOSE [id number] 07:37:00 Test Item Value Reference Range Comments POC-GLUCOSE METER (BEAKER) 94 mg/dL 70-110 TESTED AT [address] (test vgjw=2397) [facility] [address] RAD, CHEST, 1 VIEW, NON [id number] 04:50:00Reason for exam:->SOBShould this be performed at [...] Verified Date/Time: 08/12/2018 04:50: 01 Reading Location: [address] Reading Room POCT-GLUCOSE [id number] 04:39:00 Test Item Value Reference Range Comments POC-GLUCOSE METER (BEAKER) 107 mg/dL 70-110 TESTED AT [address] (test pqmj=7299) [facility] [address] COMPREHENSIVE METABOLIC [id number] 04:16:00 Test Item Value Reference Range Comments TOTAL PROTEIN (BEAKER) 5.6 gm/dL 6.0-8.3 (test ruvm=658) ALBUMIN (BEAKER) (test 3.2 g/dL 3.5-5.0 ydjq=1313) ALKALINE PHOSPHATASE 66 U/L 40-150 (BEAKER) (test nomy=056) BILIRUBIN TOTAL (BEAKER) 0.6 mg/dL 0.2-1.2 (test vohe=845) SODIUM (BEAKER) (test 136 meq/L 136-145 orzj=046) POTASSIUM (BEAKER) (test 4.0 meq/L 3.5-5.1 gica=118) CHLORIDE (BEAKER) (test 102 meq/L 98-107 mzhf=960) CO2 (BEAKER) (test 25 meq/L 22-29 mzwb=413) BLOOD UREA NITROGEN 38 mg/dL 7-21 (BEAKER) (test yblm=342) CREATININE (BEAKER) (test 3.33 mg/dL 0.57-1.25 uiyq=494) GLUCOSE RANDOM (BEAKER) 105 mg/dL 70-105 (test rrcu=837) CALCIUM (BEAKER) (test 8.6 mg/dL 8.4-10.2 zqwl=509) AST (SGOT) (BEAKER) (test 25 U/L 5-34 lzmr=418) ALT (SGPT) (BEAKER) (test 16 U/L 6-55 idjh=898) EGFR (BEAKER) (test 13 mL/min/1.73 sq m ESTIMATED GFR IS NOT evuk=7176) ACCURATE CREATININE CLEARANCE IN PREDICTING GLOMERULAR FILTRATION RATE. ESTIMATED GFR IS NOT APPLICABLE FOR DIALYSIS PATIENTS. [id number] 04:11:00 Test Item Value Reference Range Comments PHOSPHORUS (BEAKER) (test yiic=218) 2.9 mg/dL 2.3-4.7 [id number] 04:11:00 Test Item Value Reference Range Comments MAGNESIUM (BEAKER) (test omwh=789) 1.9 mg/dL 1.6-2.6 CBC W/PLT COUNT & AUTO [id number] 03:57:00 Test Item Value Reference Range Comments WHITE BLOOD CELL COUNT (BEAKER) (test rkmc=678) 12.6 K/ L 3.5-10.5 RED BLOOD CELL COUNT (BEAKER) (test zukg=873) 2.87 M/ L 3.93-5.22 HEMOGLOBIN (BEAKER) (test mbwa=247) 9.0 GM/DL 11.2-15.7 HEMATOCRIT (BEAKER) (test uouk=954) 28.6 % 34.1-44.9 MEAN CORPUSCULAR VOLUME (BEAKER) (test maam=122) 99.7 fL 79.4-94.8 MEAN CORPUSCULAR HEMOGLOBIN (BEAKER) (test 31.4 pg 25.6-32.2 tlmy=559) MEAN CORPUSCULAR HEMOGLOBIN CONC (BEAKER) (test 31.5 GM/DL 32.2-35.5 usql=958) RED CELL DISTRIBUTION WIDTH (BEAKER) (test 16.1 % 11.7-14.4 grsm=950) PLATELET COUNT (BEAKER) (test wift=780) 204 K/CU MM 150-450 MEAN PLATELET VOLUME (BEAKER) (test uqiw=388) 10.5 fL 9.4-12.3 NUCLEATED RED BLOOD CELLS (BEAKER) (test 5 /100 WBC 0-0 ybho=335) NEUTROPHILS RELATIVE PERCENT (BEAKER) (test 77 % lyxx=215) LYMPHOCYTES RELATIVE PERCENT (BEAKER) (test 9 % udqr=644) MONOCYTES RELATIVE PERCENT (BEAKER) (test 11 % fixp=832) EOSINOPHILS RELATIVE PERCENT (BEAKER) (test 2 % brvz=791) BASOPHILS RELATIVE PERCENT (BEAKER) (test 0 % pxwg=689) NEUTROPHILS ABSOLUTE COUNT (BEAKER) (test 9.64 K/ L 1.56-6.13 njbv=346) LYMPHOCYTES ABSOLUTE COUNT (BEAKER) (test 1.07 K/ L 1.18-3.74 bevh=453) MONOCYTES ABSOLUTE COUNT (BEAKER) (test 1.34 K/ L 0.24-0.36 iaqo=005) EOSINOPHILS ABSOLUTE COUNT (BEAKER) (test 0.19 K/ L 0.04-0.36 iuoo=262) BASOPHILS ABSOLUTE COUNT (BEAKER) (test 0.03 K/ L 0.01-0.08 xqee=516) IMMATURE GRANULOCYTES-RELATIVE PERCENT (BEAKER) 2 % 0-1 (test mznq=1555) CALCIUM, [id number] 03:25:00 Test Item Value Reference Range Comments CALCIUM IONIZED (BEAKER) (test soxa=846) 1.10 mmol/L 1.12-1.27 PH, BLOOD (BEAKER) (test aofe=0836) 7.43 POCT-GLUCOSE [id number] 00:03:00 Test Item Value Reference Range Comments POC-GLUCOSE METER (BEAKER) 122 mg/dL 70-110 TESTED AT [address] (test shab=8626) [place] [address] POCT-GLUCOSE [id number] 21:32:00 Test Item Value Reference Range Comments POC-GLUCOSE METER (BEAKER) 104 mg/dL 70-110 TESTED AT [address] (test utci=4495) [place] [address] POCT-GLUCOSE [id number] 17:51:00 Test Item Value Reference Range Comments POC-GLUCOSE METER (BEAKER) 151 mg/dL 70-110 TESTED AT [address] (test kyjh=1442) [place] [id number] BASIC METABOLIC [id number] 16:24:00 Test Item Value Reference Range Comments SODIUM (BEAKER) (test 133 meq/L 136-145 jcgm=990) POTASSIUM (BEAKER) (test 4.1 meq/L 3.5-5.1 Specimen slightly wrse=058) hemolyzed CHLORIDE (BEAKER) (test 101 meq/L 98-107 hpna=891) CO2 (BEAKER) (test 26 meq/L 22-29 dtyl=433) BLOOD UREA NITROGEN 34 mg/dL 7-21 (BEAKER) (test fxey=815) CREATININE (BEAKER) (test 3.12 mg/dL 0.57-1.25 Specimen slightly fzqb=929) hemolyzed GLUCOSE RANDOM (BEAKER) 167 mg/dL 70-105 (test iznn=842) CALCIUM (BEAKER) (test 8.4 mg/dL 8.4-10.2 dmus=691) EGFR (BEAKER) (test 14 mL/min/1.73 sq m ESTIMATED GFR IS NOT tjzk=4406) ACCURATE CREATININE CLEARANCE IN PREDICTING GLOMERULAR FILTRATION RATE. ESTIMATED GFR IS NOT APPLICABLE FOR DIALYSIS PATIENTS. [id number] 16:22:00 Test Item Value Reference Range Comments MAGNESIUM (BEAKER) (test 1.8 mg/dL 1.6-2.6 Specimen slightly hemolyzed vgkc=890) POCT-GLUCOSE [id number] 11:45:00 Test Item Value Reference Range Comments POC-GLUCOSE METER (BEAKER) 141 mg/dL 70-110 TESTED AT [facility] [address] (test dywl=4696) [facility] [address] POCT-GLUCOSE [id number] 07:51:00 Test Item Value Reference Range Comments POC-GLUCOSE METER (BEAKER) 112 mg/dL 70-110 TESTED AT [address] (test ciyg=3785) [facility] [address] BASIC METABOLIC [id number] 05:18:00 Test Item Value Reference Range Comments SODIUM (BEAKER) (test 135 meq/L 136-145 hoeo=617) POTASSIUM (BEAKER) (test 4.7 meq/L 3.5-5.1 Specimen moderately wilw=851) hemolyzed CHLORIDE (BEAKER) (test 103 meq/L 98-107 zekv=146) CO2 (BEAKER) (test 24 meq/L 22-29 uqge=244) BLOOD UREA NITROGEN 26 mg/dL 7-21 (BEAKER) (test chqk=385) CREATININE (BEAKER) (test 2.47 mg/dL 0.57-1.25 Specimen moderately jrlf=953) hemolyzed GLUCOSE RANDOM (BEAKER) 101 mg/dL 70-105 (test gqkp=526) CALCIUM (BEAKER) (test 8.8 mg/dL 8.4-10.2 ycgc=855) EGFR (BEAKER) (test 19 mL/min/1.73 sq m ESTIMATED GFR IS NOT rxdj=7586) ACCURATE CREATININE CLEARANCE IN PREDICTING GLOMERULAR FILTRATION RATE. ESTIMATED GFR IS NOT APPLICABLE FOR DIALYSIS PATIENTS. [id number] 05:12:00 Test Item Value Reference Range Comments MAGNESIUM (BEAKER) (test 2.0 mg/dL 1.6-2.6 Specimen moderately hemolyzed fzek=534) CBC W/PLT COUNT & AUTO [id number] 04:19:00 Test Item Value Reference Range Comments WHITE BLOOD CELL COUNT (BEAKER) (test vybj=192) 14.3 K/ L 3.5-10.5 RED BLOOD CELL COUNT (BEAKER) (test tydq=823) 3.03 M/ L 3.93-5.22 HEMOGLOBIN (BEAKER) (test vmvm=487) 9.4 GM/DL 11.2-15.7 HEMATOCRIT (BEAKER) (test npgm=252) 29.2 % 34.1-44.9 MEAN CORPUSCULAR VOLUME (BEAKER) (test qxgd=605) 96.4 fL 79.4-94.8 MEAN CORPUSCULAR HEMOGLOBIN (BEAKER) (test 31.0 pg 25.6-32.2 xsvl=844) MEAN CORPUSCULAR HEMOGLOBIN CONC (BEAKER) (test 32.2 GM/DL 32.2-35.5 snxe=879) RED CELL DISTRIBUTION WIDTH (BEAKER) (test 15.5 % 11.7-14.4 xpoo=657) PLATELET COUNT (BEAKER) (test edsa=855) 209 K/CU MM 150-450 MEAN PLATELET VOLUME (BEAKER) (test qmvc=145) 10.4 fL 9.4-12.3 NUCLEATED RED BLOOD CELLS (BEAKER) (test 4 /100 WBC 0-0 bjwn=128) NEUTROPHILS RELATIVE PERCENT (BEAKER) (test 80 % wqqk=248) LYMPHOCYTES RELATIVE PERCENT (BEAKER) (test 6 % ziuu=121) MONOCYTES RELATIVE PERCENT (BEAKER) (test 11 % hycz=565) EOSINOPHILS RELATIVE PERCENT (BEAKER) (test 1 % skaf=730) BASOPHILS RELATIVE PERCENT (BEAKER) (test 0 % mmmm=132) NEUTROPHILS ABSOLUTE COUNT (BEAKER) (test 11.46 K/ L 1.56-6.13 otwb=450) LYMPHOCYTES ABSOLUTE COUNT (BEAKER) (test 0.80 K/ L 1.18-3.74 cntd=172) MONOCYTES ABSOLUTE COUNT (BEAKER) (test 1.60 K/ L 0.24-0.36 midr=262) EOSINOPHILS ABSOLUTE COUNT (BEAKER) (test 0.07 K/ L 0.04-0.36 hmwe=439) BASOPHILS ABSOLUTE COUNT (BEAKER) (test 0.03 K/ L 0.01-0.08 qbsw=739) IMMATURE GRANULOCYTES-RELATIVE PERCENT (BEAKER) 3 % 0-1 (test yagt=9634) RAD, CHEST, 1 VIEW, NON [id number] 03:48:00Reason for exam:->SOBShould this be performed at the bedside?->YesFINAL REPORT RAD , CHEST, 1 VIEW, NON DEPT INDICATION: SOB COMPARISON: Prior day's exam FINDINGS : Portable frontal view of the chest. IMPRESSION: Support Lines: Stable. Lungs and pleura: Unchanged airspace and pleural opacities. No pneumothorax.Heart and mediastinum: Stable contours. Additional findings: None. Signed: Desire Méndezepkarlie Verified Date/Time: 08/11/2018 03:48:09 POCT -GLUCOSE [id number] 23:26:00 Test Item Value Reference Range Comments POC-GLUCOSE METER (BEAKER) 101 mg/dL 70-110 TESTED AT [address] (test camj=6916) [place] [address] POCT-GLUCOSE [id number] 18:11:00 Test Item Value Reference Range Comments POC-GLUCOSE METER (BEAKER) 171 mg/dL 70-110 TESTED AT [address] (test rykv=0314) [place] [address] BASIC METABOLIC [id number] 16:14:00 Test Item Value Reference Range Comments SODIUM (BEAKER) (test 134 meq/L 136-145 ncvz=566) POTASSIUM (BEAKER) (test 4.6 meq/L 3.5-5.1 yydg=984) CHLORIDE (BEAKER) (test 102 meq/L 98-107 nsfv=662) CO2 (BEAKER) (test 25 meq/L 22-29 cifr=611) BLOOD UREA NITROGEN 51 mg/dL 7-21 (BEAKER) (test txuq=828) CREATININE (BEAKER) (test 3.89 mg/dL 0.57-1.25 zydg=517) GLUCOSE RANDOM (BEAKER) 182 mg/dL 70-105 (test knly=936) CALCIUM (BEAKER) (test 8.2 mg/dL 8.4-10.2 imbe=607) EGFR (BEAKER) (test 11 mL/min/1.73 sq m ESTIMATED GFR IS NOT zygs=8402) ACCURATE CREATININE CLEARANCE IN PREDICTING GLOMERULAR FILTRATION RATE. ESTIMATED GFR IS NOT APPLICABLE FOR DIALYSIS PATIENTS. [id number] 16:07:00 Test Item Value Reference Range Comments MAGNESIUM (BEAKER) (test jogu=313) 2.0 mg/dL 1.6-2.6 LACTIC ACID, [id number] 15:23:00 Test Item Value Reference Range Comments LACTATE BLOOD ARTERIAL (2) (BEAKER) (test 0.9 mmol/L 0.5-2.2 glvy=4261) RAD, CHEST, 1 VIEW, NON [id number] 15:07:00Reason for exam:-> hypoxemiaShould this be performed [...] MDReport Verified Date/Time: 08/10/2018 15:07:53 Reading Location: [address] Consult Reading Room 03: 07 PMBLOOD GAS, [id number] 14:53:00 Test Item Value Reference Range Comments PH ARTERIAL (BEAKER) (test fafo=042) 7.44 7.35-7.45 PCO2 ARTERIAL (BEAKER) (test vonp=291) 38 mmHg 35-45 PO2 ARTERIAL (BEAKER) (test wrnh=886) 165 mmHg 80-90 O2 SATURATION ARTERIAL (BEAKER) (test rcig=199) 99.2 % 96.0-97.0 HCO3 ARTERIAL (BEAKER) (test sltv=772) 26 mmol/L 21-29 BASE EXCESS ARTERIAL (BEAKER) (test omqq=577) 1.1 mmol/L -2.0-3.0 PATIENT TEMPERATURE (BEAKER) (test utkr=6891) 36.4 C FIO2 (BEAKER) (test bdzb=7932) 44.0 % POCT-GLUCOSE [id number] 12:20:00 Test Item Value Reference Range Comments POC-GLUCOSE METER (BEAKER) 208 mg/dL 70-110 TESTED AT [facility] [address] (test rlxd=3662) [place] [address] CBC W/PLT COUNT & AUTO [id number] 08:56:00 Test Item Value Reference Range Comments WHITE BLOOD CELL COUNT (BEAKER) (test acvr=854) 12.2 K/ L 3.5-10.5 RED BLOOD CELL COUNT (BEAKER) (test uugc=256) 2.87 M/ L 3.93-5.22 HEMOGLOBIN (BEAKER) (test avqy=531) 8.8 GM/DL 11.2-15.7 HEMATOCRIT (BEAKER) (test ijox=225) 27.4 % 34.1-44.9 MEAN CORPUSCULAR VOLUME (BEAKER) (test cxrx=449) 95.5 fL 79.4-94.8 MEAN CORPUSCULAR HEMOGLOBIN (BEAKER) (test 30.7 pg 25.6-32.2 cevd=637) MEAN CORPUSCULAR HEMOGLOBIN CONC (BEAKER) (test 32.1 GM/DL 32.2-35.5 bglb=907) RED CELL DISTRIBUTION WIDTH (BEAKER) (test 15.1 % 11.7-14.4 oehz=906) PLATELET COUNT (BEAKER) (test uaxv=511) 224 K/CU MM 150-450 MEAN PLATELET VOLUME (BEAKER) (test thmy=999) 9.8 fL 9.4-12.3 NUCLEATED RED BLOOD CELLS (BEAKER) (test 1 /100 WBC 0-0 rxkw=115) (CELLAVISION MANUAL DIFF)2018-08-10 08:56:00 Test Item Value Reference Range Comments NEUTROPHILS - REL (CELLAVISION)(BEAKER) (test 80 % mrdl=6854) LYMPHOCYTES - REL (CELLAVISION)(BEAKER) (test 7 % worg=6277) MONOCYTES - REL (CELLAVISION)(BEAKER) (test 10 % ucgi=6869) EOSINOPHILS - REL (CELLAVISION)(BEAKER) (test 2 % guin=5832) NEUTROPHILS - ABS (CELLAVISION)(BEAKER) (test 9.76 K/ul 1.56-6.13 cxxg=6145) LYMPHOCYTES - ABS (CELLAVISION)(BEAKER) (test 0.85 K/ul 1.18-3.74 vyqz=9113) MONOCYTES - ABS (CELLAVISION)(BEAKER) (test 1.22 K/uL 0.24-0.36 cubn=8352) EOSINOPHILS - ABS (CELLAVISION)(BEAKER) (test 0.24 K/uL 0.04-0.36 dnug=7956) TOTAL COUNTED (BEAKER) (test ypfm=0322) 100 MANUAL NRBC PER 100 CELLS (BEAKER) (test 2 /100 WBC 0-0 thij=3109) PLT MORPHOLOGY (BEAKER) (test ksot=076) Normal TOXIC GRANULATION (BEAKER) (test load=960) Present POLYCHROMATOPHILLIC RBCS(BEAKER) (test rude=997) 1+ few ARTIFACT (CELLAVISION)(BEAKER) (test qjpf=2752) Present PLATELET CONCENTRATION (CELLAVISION)(BEAKER) Adequate (test yamd=2345) Received comment: User comments: Slide comments:RAD, CHEST, 1 VIEW, NON [id number] 08:03:00Reason for exam:->SOBShould this be performed [...] Otherwise, no significant change since 08/09/2018. Signed: Likhari, Gauruv MDReport Verified Date/Time: 08:03:28 Reading Location: [facility] Reading Room POCT- GLUCOSE [id number] 07:51:00 Test Item Value Reference Range Comments POC-GLUCOSE METER (BEAKER) 129 mg/dL 70-110 TESTED AT [place] [id number] [facility] (test zgin=5411) [facility] [address] POCT-GLUCOSE [id number] 06:38:00 Test Item Value Reference Range Comments POC-GLUCOSE METER (BEAKER) 193 mg/dL 70-110 TESTED AT [address] (test kqui=5431) [facility] [address] POCT-GLUCOSE [id number] 05:48:00 Test Item Value Reference Range Comments POC-GLUCOSE METER (BEAKER) 67 mg/dL 70-110 TESTED AT [place] [id number] [facility] (test lapc=6836) [facility] [address] BASIC METABOLIC [id number] 05:07:00 Test Item Value Reference Range Comments SODIUM (BEAKER) (test 137 meq/L 136-145 coza=783) POTASSIUM (BEAKER) (test 4.1 meq/L 3.5-5.1 Specimen slightly cxti=249) hemolyzed CHLORIDE (BEAKER) (test 103 meq/L 98-107 soev=803) CO2 (BEAKER) (test 26 meq/L 22-29 ktpo=436) BLOOD UREA NITROGEN 45 mg/dL 7-21 (BEAKER) (test leqb=359) CREATININE (BEAKER) (test 2.97 mg/dL 0.57-1.25 Specimen slightly yodr=380) hemolyzed GLUCOSE RANDOM (BEAKER) 66 mg/dL 70-105 (test eelr=284) CALCIUM (BEAKER) (test 9.1 mg/dL 8.4-10.2 wmgh=081) EGFR (BEAKER) (test 15 mL/min/1.73 sq m ESTIMATED GFR IS NOT rxwg=2276) ACCURATE CREATININE CLEARANCE IN PREDICTING GLOMERULAR FILTRATION RATE. ESTIMATED GFR IS NOT APPLICABLE FOR DIALYSIS PATIENTS. [id number] 05:06:00 Test Item Value Reference Range Comments MAGNESIUM (BEAKER) (test 2.0 mg/dL 1.6-2.6 Specimen slightly hemolyzed xftb=478) POCT-GLUCOSE [id number] 20:02:00 Test Item Value Reference Range Comments POC-GLUCOSE METER (BEAKER) 95 mg/dL 70-110 TESTED AT [address] (test eaxb=8130) [place] [id number] POCT-GLUCOSE [id number] 17:35:00 Test Item Value Reference Range Comments POC-GLUCOSE METER (BEAKER) 144 mg/dL 70-110 TESTED AT [address] (test tdrs=8331) [place] [address] POCT-GLUCOSE [id number] 13:42:00 Test Item Value Reference Range Comments POC-GLUCOSE METER (BEAKER) 180 mg/dL 70-110 TESTED AT [address] (test gzpw=3587) [place] [address] POCT-GLUCOSE [id number] 07:56:00 Test Item Value Reference Range Comments POC-GLUCOSE METER (BEAKER) 206 mg/dL 70-110 TESTED AT [address] (test sjsr=7609) [place] [id number] CBC W/PLT COUNT & AUTO [id number] 06:25:00 Test Item Value Reference Range Comments WHITE BLOOD CELL COUNT (BEAKER) (test xtcb=159) 13.6 K/ L 3.5-10.5 RED BLOOD CELL COUNT (BEAKER) (test yfex=684) 2.66 M/ L 3.93-5.22 HEMOGLOBIN (BEAKER) (test nxol=263) 8.2 GM/DL 11.2-15.7 HEMATOCRIT (BEAKER) (test quje=118) 25.5 % 34.1-44.9 MEAN CORPUSCULAR VOLUME (BEAKER) (test knrc=407) 95.9 fL 79.4-94.8 MEAN CORPUSCULAR HEMOGLOBIN (BEAKER) (test 30.8 pg 25.6-32.2 rwox=378) MEAN CORPUSCULAR HEMOGLOBIN CONC (BEAKER) (test 32.2 GM/DL 32.2-35.5 rkid=428) RED CELL DISTRIBUTION WIDTH (BEAKER) (test 14.9 % 11.7-14.4 biiv=392) PLATELET COUNT (BEAKER) (test ezcw=689) 278 K/CU MM 150-450 MEAN PLATELET VOLUME (BEAKER) (test foha=920) 10.2 fL 9.4-12.3 NUCLEATED RED BLOOD CELLS (BEAKER) (test 0 /100 WBC 0-0 yeaf=712) NEUTROPHILS RELATIVE PERCENT (BEAKER) (test 82 % znwa=331) LYMPHOCYTES RELATIVE PERCENT (BEAKER) (test 5 % vsev=118) MONOCYTES RELATIVE PERCENT (BEAKER) (test 13 % nsym=260) EOSINOPHILS RELATIVE PERCENT (BEAKER) (test 0 % xott=883) BASOPHILS RELATIVE PERCENT (BEAKER) (test 0 % gfpn=177) NEUTROPHILS ABSOLUTE COUNT (BEAKER) (test 11.05 K/ L 1.56-6.13 zaqu=933) LYMPHOCYTES ABSOLUTE COUNT (BEAKER) (test 0.63 K/ L 1.18-3.74 dyax=322) MONOCYTES ABSOLUTE COUNT (BEAKER) (test 1.74 K/ L 0.24-0.36 symi=433) EOSINOPHILS ABSOLUTE COUNT (BEAKER) (test 0.00 K/ L 0.04-0.36 aggd=525) BASOPHILS ABSOLUTE COUNT (BEAKER) (test 0.01 K/ L 0.01-0.08 wjne=552) IMMATURE GRANULOCYTES-RELATIVE PERCENT (BEAKER) 1 % 0-1 (test iwqw=2597) BASIC METABOLIC [id number] 06:22:00 Test Item Value Reference Range Comments SODIUM (BEAKER) (test 135 meq/L 136-145 fyft=839) POTASSIUM (BEAKER) (test 4.8 meq/L 3.5-5.1 Specimen moderately jmiy=155) hemolyzed CHLORIDE (BEAKER) (test 102 meq/L 98-107 xrce=434) CO2 (BEAKER) (test 18 meq/L 22-29 btnn=183) BLOOD UREA NITROGEN 84 mg/dL 7-21 (BEAKER) (test zjnw=933) CREATININE (BEAKER) (test 4.72 mg/dL 0.57-1.25 Specimen moderately eihs=389) hemolyzed GLUCOSE RANDOM (BEAKER) 205 mg/dL 70-105 (test hcbk=849) CALCIUM (BEAKER) (test 8.5 mg/dL 8.4-10.2 dhpg=361) EGFR (BEAKER) (test 9 mL/min/1.73 sq m ESTIMATED GFR IS NOT jxje=2513) ACCURATE CREATININE CLEARANCE IN PREDICTING GLOMERULAR FILTRATION RATE. ESTIMATED GFR IS NOT APPLICABLE FOR DIALYSIS PATIENTS. RAD, CHEST, 1 VIEW, NON [id number] 05:59:00Reason for exam:->SOBShould this be performed at [...] of the cervical spine. Signed: Desire Méndez MDReport Verified Date/Time: 08/09/2018 05:59:24 POCT-GLUCOSE [id number] 22:05:00 Test Item Value Reference Range Comments POC-GLUCOSE METER (BEAKER) 254 mg/dL 70-110 TESTED AT [facility] [address] (test uxsz=3405) [facility] [address] POCT-GLUCOSE [id number] 18:33:00 Test Item Value Reference Range Comments POC-GLUCOSE METER (BEAKER) 271 mg/dL 70-110 TESTED AT [facility] [address] (test pzyb=8899) [facility] [address] RAD, CHEST, 1 VIEW, NON [id number] 15:44:00Reason for exam:->IABP placementShould this be performed [...] the lower cervical spine. Signed: Heather Tracey Verified Date/Time: 08/08/2018 15:44:27 Reading Location: [facility] Reading Room RAD, CHEST, 1 VIEW, NON [id number] 13:42: 00Reason for exam:->IABP positionShould this be [...] Tracey Verified Date/Time: 08/08/2018 13:42:06 Reading Location: [facility] Reading Room POCT-GLUCOSE [id number] 13:28:00 Test Item Value Reference Range Comments POC-GLUCOSE METER (CRISTY) 294 mg/dL 70-110 TESTED AT [address] (test dipj=9438) [facility] [address] RAD, CHEST, 1 VIEW, NON [id number] 08:20:00Reason for exam:->SOBShould this be performed at [...] cm below the ramírez. Signed: Terry Sauer MDReport Verified Date/Time: 08/08/2018 08:20:51 Reading Location: [facility] Radiology Reading Room POCT-GLUCOSE [id number] 07:57:00 Test Item Value Reference Range Comments POC-GLUCOSE METER (BEAKER) 286 mg/dL 70-110 TESTED AT [facility] [address] (test hnqj=1232) [facility] [address] CBC W/PLT COUNT & AUTO [id number] 05:11:00 Test Item Value Reference Range Comments WHITE BLOOD CELL COUNT (BEAKER) (test alqa=020) 11.2 K/ L 3.5-10.5 RED BLOOD CELL COUNT (BEAKER) (test hmco=260) 2.71 M/ L 3.93-5.22 HEMOGLOBIN (BEAKER) (test wslf=833) 8.3 GM/DL 11.2-15.7 HEMATOCRIT (BEAKER) (test bjwt=772) 26.1 % 34.1-44.9 MEAN CORPUSCULAR VOLUME (BEAKER) (test eazx=358) 96.3 fL 79.4-94.8 MEAN CORPUSCULAR HEMOGLOBIN (BEAKER) (test 30.6 pg 25.6-32.2 vami=662) MEAN CORPUSCULAR HEMOGLOBIN CONC (BEAKER) (test 31.8 GM/DL 32.2-35.5 ojpg=984) RED CELL DISTRIBUTION WIDTH (BEAKER) (test 14.0 % 11.7-14.4 tckc=789) PLATELET COUNT (BEAKER) (test mzxn=049) 227 K/CU MM 150-450 MEAN PLATELET VOLUME (BEAKER) (test dpjc=669) 10.6 fL 9.4-12.3 NUCLEATED RED BLOOD CELLS (BEAKER) (test 0 /100 WBC 0-0 hmkq=185) NEUTROPHILS RELATIVE PERCENT (BEAKER) (test 90 % pros=822) LYMPHOCYTES RELATIVE PERCENT (BEAKER) (test 4 % bgbk=261) MONOCYTES RELATIVE PERCENT (BEAKER) (test 4 % rffi=041) EOSINOPHILS RELATIVE PERCENT (BEAKER) (test 0 % sjdk=620) BASOPHILS RELATIVE PERCENT (BEAKER) (test 0 % psuf=000) NEUTROPHILS ABSOLUTE COUNT (BEAKER) (test 10.06 K/ L 1.56-6.13 dzxo=852) LYMPHOCYTES ABSOLUTE COUNT (BEAKER) (test 0.45 K/ L 1.18-3.74 wktj=733) MONOCYTES ABSOLUTE COUNT (BEAKER) (test 0.48 K/ L 0.24-0.36 jmco=519) EOSINOPHILS ABSOLUTE COUNT (BEAKER) (test 0.00 K/ L 0.04-0.36 qxfo=223) BASOPHILS ABSOLUTE COUNT (BEAKER) (test 0.03 K/ L 0.01-0.08 enrz=993) IMMATURE GRANULOCYTES-RELATIVE PERCENT (BEAKER) 2 % 0-1 (test hlag=7574) [id number] 04:43:00 Test Item Value Reference Range Comments MAGNESIUM (BEAKER) (test owro=444) 2.3 mg/dL 1.6-2.6 BASIC METABOLIC [id number] 04:43:00 Test Item Value Reference Range Comments SODIUM (BEAKER) (test 135 meq/L 136-145 nfna=482) POTASSIUM (BEAKER) (test 4.9 meq/L 3.5-5.1 brcl=616) CHLORIDE (BEAKER) (test 102 meq/L 98-107 vtch=516) CO2 (BEAKER) (test 18 meq/L 22-29 fheh=156) BLOOD UREA NITROGEN 68 mg/dL 7-21 (BEAKER) (test wtds=118) CREATININE (BEAKER) (test 3.54 mg/dL 0.57-1.25 khgb=863) GLUCOSE RANDOM (BEAKER) 267 mg/dL 70-105 (test vjjb=431) CALCIUM (BEAKER) (test 8.6 mg/dL 8.4-10.2 hvgp=739) EGFR (BEAKER) (test 12 mL/min/1.73 sq m ESTIMATED GFR IS NOT xlfq=6048) ACCURATE CREATININE CLEARANCE IN PREDICTING GLOMERULAR FILTRATION RATE. ESTIMATED GFR IS NOT APPLICABLE FOR DIALYSIS PATIENTS. POCT-GLUCOSE [id number] 22:27:00 Test Item Value Reference Range Comments POC-GLUCOSE METER (BEAKER) 279 mg/dL 70-110 TESTED AT [facility] [address] (test neko=3357) [facility] [address] BASIC METABOLIC [id number] 22:17:00 Test Item Value Reference Range Comments SODIUM (BEAKER) (test 133 meq/L 136-145 gfzt=506) POTASSIUM (BEAKER) (test 4.6 meq/L 3.5-5.1 gjla=019) CHLORIDE (BEAKER) (test 100 meq/L 98-107 nkiy=889) CO2 (BEAKER) (test 18 meq/L 22-29 ccsh=010) BLOOD UREA NITROGEN 64 mg/dL 7-21 (BEAKER) (test qgnj=345) CREATININE (BEAKER) (test 3.59 mg/dL 0.57-1.25 lkzy=070) GLUCOSE RANDOM (BEAKER) 250 mg/dL 70-105 (test btwa=057) CALCIUM (BEAKER) (test 8.3 mg/dL 8.4-10.2 thra=424) EGFR (BEAKER) (test 12 mL/min/1.73 sq m ESTIMATED GFR IS NOT lbis=5390) ACCURATE CREATININE CLEARANCE IN PREDICTING GLOMERULAR FILTRATION RATE. ESTIMATED GFR IS NOT APPLICABLE FOR DIALYSIS PATIENTS. [id number] 22:13:00 Test Item Value Reference Range Comments MAGNESIUM (BEAKER) (test ygxw=166) 2.1 mg/dL 1.6-2.6 [id number] 19:37:00 Test Item Value Reference Range Comments ACTIVATED CLOTTING TIME 268 sec TESTED AT [address] [facility] (test jtza=424) [place] [address] [id number] 18:30:00 Test Item Value Reference Range Comments ACTIVATED CLOTTING TIME 257 sec TESTED AT [address] (BEAKER) (test etzm=677) [place] [address] [id number] 17:58:00 Test Item Value Reference Range Comments ACTIVATED CLOTTING TIME 219 sec TESTED AT [address] [facility] (test lmvx=897) [place] [address] [id number] 17:58:00 Test Item Value Reference Range Comments ACTIVATED CLOTTING TIME > sec OUTSIDE MEASURING RANGETESTED AT [facility] (test aobn=679) [place] [address] POCT-GLUCOSE [id number] 12:23:00 Test Item Value Reference Range Comments P[facility]COSE METER [facility] 169 mg/dL 70-110 TESTED AT [address] (test cknd=5304) [facility] [address] RAD, CHEST, 1 VIEW, NON [id number] 09:10:00Reason for exam:->SOBShould this be performed at the bedside?->YesFINAL REPORT Chest dated 08/07/2018 COMPARISON: 08/06/2018 Clinical Information: SOB Comment: Heart is enlarged. Pulmonary vasculature is indistinct. Interstitial disease is seen bilaterally suggestive of vascular congestion or pulmonary edema. There is small bilateral pleural effusion. IMPRESSION: No interval change. Signed: Yuan Arango MDReport Verified Date/Time: 08/07/2018 09:10:23 Reading Location: [facility] Radiology Reading Room POCT-GLUCOSE [id number] 07:49:00 Test Item Value Reference Range Comments POC-GLUCOSE METER (BEAKER) 165 mg/dL 70-110 TESTED AT [address] (test syjy=3873) [place] [id number] COMPREHENSIVE METABOLIC [id number] 06:00:00 Test Item Value Reference Range Comments TOTAL PROTEIN (BEAKER) 6.0 gm/dL 6.0-8.3 (test wylp=353) ALBUMIN (BEAKER) (test 3.3 g/dL 3.5-5.0 tebh=0199) ALKALINE PHOSPHATASE 58 U/L 40-150 (BEAKER) (test yzfy=325) BILIRUBIN TOTAL (BEAKER) 0.4 mg/dL 0.2-1.2 (test vwul=581) SODIUM (BEAKER) (test 135 meq/L 136-145 efnt=749) POTASSIUM (BEAKER) (test 4.1 meq/L 3.5-5.1 uzez=574) CHLORIDE (BEAKER) (test 102 meq/L 98-107 zsyx=868) CO2 (BEAKER) (test 24 meq/L 22-29 ukrn=192) BLOOD UREA NITROGEN 52 mg/dL 7-21 (BEAKER) (test tygm=567) CREATININE (BEAKER) (test 3.23 mg/dL 0.57-1.25 askc=427) GLUCOSE RANDOM (BEAKER) 154 mg/dL 70-105 (test hsjb=347) CALCIUM (BEAKER) (test 8.3 mg/dL 8.4-10.2 qaqh=628) AST (SGOT) (BEAKER) (test 31 U/L 5-34 uqji=893) ALT (SGPT) (BEAKER) (test 17 U/L 6-55 ibzd=643) EGFR (BEAKER) (test 14 mL/min/1.73 sq m ESTIMATED GFR IS NOT qlqe=2364) ACCURATE CREATININE CLEARANCE IN PREDICTING GLOMERULAR FILTRATION RATE. ESTIMATED GFR IS NOT APPLICABLE FOR DIALYSIS PATIENTS. [id number] 05:56:00 Test Item Value Reference Range Comments PHOSPHORUS (BEAKER) (test azot=494) 2.9 mg/dL 2.3-4.7 [id number] 05:56:00 Test Item Value Reference Range Comments MAGNESIUM (BEAKER) (test cobh=875) 2.0 mg/dL 1.6-2.6 CBC W/PLT COUNT & AUTO [id number] 05:42:00 Test Item Value Reference Range Comments WHITE BLOOD CELL COUNT (BEAKER) (test aflu=308) 9.6 K/ L 3.5-10.5 RED BLOOD CELL COUNT (BEAKER) (test ylcv=647) 2.84 M/ L 3.93-5.22 HEMOGLOBIN (BEAKER) (test ceqe=052) 8.8 GM/DL 11.2-15.7 HEMATOCRIT (BEAKER) (test pbyi=911) 27.2 % 34.1-44.9 MEAN CORPUSCULAR VOLUME (BEAKER) (test luhl=871) 95.8 fL 79.4-94.8 MEAN CORPUSCULAR HEMOGLOBIN (BEAKER) (test 31.0 pg 25.6-32.2 hiid=220) MEAN CORPUSCULAR HEMOGLOBIN CONC (BEAKER) (test 32.4 GM/DL 32.2-35.5 hbcj=998) RED CELL DISTRIBUTION WIDTH (BEAKER) (test 14.1 % 11.7-14.4 ajxv=543) PLATELET COUNT (BEAKER) (test wqca=362) 218 K/CU MM 150-450 MEAN PLATELET VOLUME (BEAKER) (test hxxv=805) 10.2 fL 9.4-12.3 NUCLEATED RED BLOOD CELLS (BEAKER) (test 0 /100 WBC 0-0 fmhk=537) NEUTROPHILS RELATIVE PERCENT (BEAKER) (test 76 % brfc=635) LYMPHOCYTES RELATIVE PERCENT (BEAKER) (test 9 % qmhh=052) MONOCYTES RELATIVE PERCENT (BEAKER) (test 12 % caal=494) EOSINOPHILS RELATIVE PERCENT (BEAKER) (test 1 % rouy=452) BASOPHILS RELATIVE PERCENT (BEAKER) (test 0 % ekel=963) NEUTROPHILS ABSOLUTE COUNT (BEAKER) (test 7.35 K/ L 1.56-6.13 wazb=507) LYMPHOCYTES ABSOLUTE COUNT (BEAKER) (test 0.84 K/ L 1.18-3.74 kmcy=261) MONOCYTES ABSOLUTE COUNT (BEAKER) (test 1.16 K/ L 0.24-0.36 kabz=584) EOSINOPHILS ABSOLUTE COUNT (BEAKER) (test 0.13 K/ L 0.04-0.36 owex=758) BASOPHILS ABSOLUTE COUNT (BEAKER) (test 0.04 K/ L 0.01-0.08 huyj=395) IMMATURE GRANULOCYTES-RELATIVE PERCENT (BEAKER) 1 % 0-1 (test fqfs=7458) CALCIUM, [id number] 05:32:00 Test Item Value Reference Range Comments CALCIUM IONIZED (BEAKER) (test dwvm=594) 1.12 mmol/L 1.12-1.27 PH, BLOOD (BEAKER) (test teaz=8394) 7.36 POCT-GLUCOSE [id number] 21:35:00 Test Item Value Reference Range Comments POC-GLUCOSE METER (BEAKER) 143 mg/dL 70-110 TESTED AT [address] (test hjji=5894) [facility] [address] POCT-GLUCOSE [id number] 17:31:00 Test Item Value Reference Range Comments POC-GLUCOSE METER (BEAKER) 105 mg/dL 70-110 TESTED AT [address] (test bubv=2563) [facility] [address] POCT-GLUCOSE [id number] 12:46:00 Test Item Value Reference Range Comments POC-GLUCOSE METER (BEAKER) 159 mg/dL 70-110 TESTED AT [address] (test yfow=9720) [facility] [address] POCT-GLUCOSE [id number] 07:40:00 Test Item Value Reference Range Comments POC-GLUCOSE METER (BEAKER) 120 mg/dL 70-110 TESTED AT [facility] [address] (test srcc=2945) [facility] [address] [id number] 04:52:00 Test Item Value Reference Range Comments MAGNESIUM (BEAKER) (test exii=591) 1.8 mg/dL 1.6-2.6 BASIC METABOLIC [id number] 04:52:00 Test Item Value Reference Range Comments SODIUM (BEAKER) (test 137 meq/L 136-145 nvio=005) POTASSIUM (BEAKER) (test 3.8 meq/L 3.5-5.1 umkx=241) CHLORIDE (BEAKER) (test 105 meq/L 98-107 gckh=359) CO2 (BEAKER) (test 23 meq/L 22-29 lofa=998) BLOOD UREA NITROGEN 51 mg/dL 7-21 (BEAKER) (test jfbz=081) CREATININE (BEAKER) (test 2.93 mg/dL 0.57-1.25 pwke=064) GLUCOSE RANDOM (BEAKER) 108 mg/dL 70-105 (test kzuf=951) CALCIUM (BEAKER) (test 8.4 mg/dL 8.4-10.2 ducl=210) EGFR (BEAKER) (test 16 mL/min/1.73 sq m ESTIMATED GFR IS NOT wqby=9260) ACCURATE CREATININE CLEARANCE IN PREDICTING GLOMERULAR FILTRATION RATE. ESTIMATED GFR IS NOT APPLICABLE FOR DIALYSIS PATIENTS. RAD, CHEST, 1 VIEW, NON [id number] 04:45:00Reason for exam:->SOBShould this be performed at [...] MDReport Verified Date/Time: 08/06/2018 04:45:08 Reading Location: [address] Reading Room [id number] 04:31:00 Test Item Value Reference Range Comments PARTIAL THROMBOPLASTIN TIME (BEAKER) (test 45.7 seconds 22.5-36.0 uocm=156) 4 hours after the start of continuous infusion and 4 hours after any rate changeCBC W/PLT COUNT & AUTO [id number] 04:23:00 Test Item Value Reference Range Comments WHITE BLOOD CELL COUNT (BEAKER) (test pkxp=751) 8.8 K/ L 3.5-10.5 RED BLOOD CELL COUNT (BEAKER) (test udpa=964) 2.95 M/ L 3.93-5.22 HEMOGLOBIN (BEAKER) (test ctyw=692) 9.1 GM/DL 11.2-15.7 HEMATOCRIT (BEAKER) (test tibe=126) 27.9 % 34.1-44.9 MEAN CORPUSCULAR VOLUME (BEAKER) (test ijnu=638) 94.6 fL 79.4-94.8 MEAN CORPUSCULAR HEMOGLOBIN (BEAKER) (test 30.8 pg 25.6-32.2 thac=278) MEAN CORPUSCULAR HEMOGLOBIN CONC (BEAKER) (test 32.6 GM/DL 32.2-35.5 abcq=006) RED CELL DISTRIBUTION WIDTH (BEAKER) (test 13.4 % 11.7-14.4 xkle=539) PLATELET COUNT (BEAKER) (test napm=132) 223 K/CU MM 150-450 MEAN PLATELET VOLUME (BEAKER) (test pqvc=665) 10.0 fL 9.4-12.3 NUCLEATED RED BLOOD CELLS (BEAKER) (test 0 /100 WBC 0-0 zaho=895) NEUTROPHILS RELATIVE PERCENT (BEAKER) (test 75 % pkxl=732) LYMPHOCYTES RELATIVE PERCENT (BEAKER) (test 12 % bqrb=209) MONOCYTES RELATIVE PERCENT (BEAKER) (test 10 % mokn=902) EOSINOPHILS RELATIVE PERCENT (BEAKER) (test 2 % ugyj=737) BASOPHILS RELATIVE PERCENT (BEAKER) (test 0 % itga=207) NEUTROPHILS ABSOLUTE COUNT (BEAKER) (test 6.55 K/ L 1.56-6.13 qmal=439) LYMPHOCYTES ABSOLUTE COUNT (BEAKER) (test 1.08 K/ L 1.18-3.74 rvqr=776) MONOCYTES ABSOLUTE COUNT (BEAKER) (test 0.89 K/ L 0.24-0.36 ucnn=913) EOSINOPHILS ABSOLUTE COUNT (BEAKER) (test 0.16 K/ L 0.04-0.36 ntsq=414) BASOPHILS ABSOLUTE COUNT (BEAKER) (test 0.03 K/ L 0.01-0.08 lltb=539) IMMATURE GRANULOCYTES-RELATIVE PERCENT (BEAKER) 1 % 0-1 (test wuqi=5294) POCT-GLUCOSE [id number] 21:47:00 Test Item Value Reference Range Comments POC-GLUCOSE METER (BEAKER) 184 mg/dL 70-110 TESTED AT [address] (test nmen=2048) [facility] [address] POCT-GLUCOSE [id number] 17:15:00 Test Item Value Reference Range Comments POC-GLUCOSE METER (BEAKER) 120 mg/dL 70-110 TESTED AT [address] (test svjl=7376) [facility] [address] POCT-GLUCOSE [id number] 12:00:00 Test Item Value Reference Range Comments POC-GLUCOSE METER (BEAKER) 226 mg/dL 70-110 TESTED AT [address] (test lgfv=0348) [facility] [address] POCT-GLUCOSE [id number] 07:45:00 Test Item Value Reference Range Comments POC-GLUCOSE METER (BEAKER) 192 mg/dL 70-110 TESTED AT [address] (test ixmm=3604) [facility] [address] RAD, CHEST, 1 VIEW, NON [id number] 07:45:00Reason for exam:->SOBShould this be performed at [...] Verified Date/Time: 08/05/2018 07:45: 53 Reading Location: [facility] B1 C013V Neuro Reading Room [id number] 06:25:00 Test Item Value Reference Range Comments MAGNESIUM (BEAKER) (test iuxp=217) 1.8 mg/dL 1.6-2.6 BASIC METABOLIC [id number] 06:25:00 Test Item Value Reference Range Comments SODIUM (BEAKER) (test 138 meq/L 136-145 htku=452) POTASSIUM (BEAKER) (test 3.9 meq/L 3.5-5.1 dhcf=251) CHLORIDE (BEAKER) (test 107 meq/L 98-107 cmjd=066) CO2 (BEAKER) (test 23 meq/L 22-29 pesz=885) BLOOD UREA NITROGEN 53 mg/dL 7-21 (BEAKER) (test zkzl=605) CREATININE (BEAKER) (test 2.79 mg/dL 0.57-1.25 utkb=974) GLUCOSE RANDOM (BEAKER) 134 mg/dL 70-105 (test xdtj=198) CALCIUM (BEAKER) (test 8.3 mg/dL 8.4-10.2 axcy=661) EGFR (BEAKER) (test 16 mL/min/1.73 sq m ESTIMATED GFR IS NOT afho=9234) ACCURATE CREATININE CLEARANCE IN PREDICTING GLOMERULAR FILTRATION RATE. ESTIMATED GFR IS NOT APPLICABLE FOR DIALYSIS PATIENTS. CBC W/PLT COUNT & AUTO [id number] 05:59:00 Test Item Value Reference Range Comments WHITE BLOOD CELL COUNT (BEAKER) (test wnny=317) 8.1 K/ L 3.5-10.5 RED BLOOD CELL COUNT (BEAKER) (test kbvw=512) 3.09 M/ L 3.93-5.22 HEMOGLOBIN (BEAKER) (test wbqz=188) 9.5 GM/DL 11.2-15.7 HEMATOCRIT (BEAKER) (test xqmy=600) 30.1 % 34.1-44.9 MEAN CORPUSCULAR VOLUME (BEAKER) (test abmp=993) 97.4 fL 79.4-94.8 MEAN CORPUSCULAR HEMOGLOBIN (BEAKER) (test 30.7 pg 25.6-32.2 hhun=997) MEAN CORPUSCULAR HEMOGLOBIN CONC (BEAKER) (test 31.6 GM/DL 32.2-35.5 svgz=369) RED CELL DISTRIBUTION WIDTH (BEAKER) (test 13.5 % 11.7-14.4 sbnj=269) PLATELET COUNT (BEAKER) (test uqzo=319) 172 K/CU MM 150-450 MEAN PLATELET VOLUME (BEAKER) (test nsxw=660) 10.1 fL 9.4-12.3 NUCLEATED RED BLOOD CELLS (BEAKER) (test 0 /100 WBC 0-0 rnsn=265) NEUTROPHILS RELATIVE PERCENT (BEAKER) (test 75 % buiy=976) LYMPHOCYTES RELATIVE PERCENT (BEAKER) (test 12 % xtfa=489) MONOCYTES RELATIVE PERCENT (BEAKER) (test 11 % cvps=583) EOSINOPHILS RELATIVE PERCENT (BEAKER) (test 2 % ownq=812) BASOPHILS RELATIVE PERCENT (BEAKER) (test 0 % aufw=059) NEUTROPHILS ABSOLUTE COUNT (BEAKER) (test 6.06 K/ L 1.56-6.13 cmnf=031) LYMPHOCYTES ABSOLUTE COUNT (BEAKER) (test 0.95 K/ L 1.18-3.74 teeq=877) MONOCYTES ABSOLUTE COUNT (BEAKER) (test 0.85 K/ L 0.24-0.36 tnvb=044) EOSINOPHILS ABSOLUTE COUNT (BEAKER) (test 0.13 K/ L 0.04-0.36 evug=289) BASOPHILS ABSOLUTE COUNT (BEAKER) (test 0.03 K/ L 0.01-0.08 kujr=031) IMMATURE GRANULOCYTES-RELATIVE PERCENT (BEAKER) 1 % 0-1 (test swal=0673) POCT-GLUCOSE [id number] 22:07:00 Test Item Value Reference Range Comments POC-GLUCOSE METER (BEAKER) 183 mg/dL 70-110 TESTED AT [address] (test lmsr=5514) [facility] [address] POCT-GLUCOSE [id number] 18:23:00 Test Item Value Reference Range Comments POC-GLUCOSE METER (BEAKER) 174 mg/dL 70-110 TESTED AT [address] (test twqj=7066) [facility] [address] C. DIFFICILE GDH [id number] 15:36:00 Test Item Value Reference Range Comments CDT TOXIN (test Negative Negative quhj=[id number]) CDT GDH ANTIGEN (test Positive Negative C. difficile present but toxin ytkx=[id number]) not detected. Indicates colonization with non-toxigenic strain [...] [facility] prior to clinical use.URINALYSIS W/ REFLEX URINE [id number] 15:18:00 Test Item Value Reference Range Comments COLOR (BEAKER) (test vgzl=034) Yellow CLARITY (BEAKER) (test bofs=522) Hazy SPECIFIC GRAVITY UA (BEAKER) (test ihoi=129) 1.017 1.001-1.035 PH UA (BEAKER) (test hrmo=050) 5.5 5.0-8.0 PROTEIN UA (BEAKER) (test wcmu=058) 30 mg/dL Negative GLUCOSE UA (BEAKER) (test ldcx=760) Negative Negative KETONES UA (BEAKER) (test wqea=248) Negative Negative BILIRUBIN UA (BEAKER) (test hwfk=790) Negative Negative BLOOD UA (BEAKER) (test nmhu=451) Trace Negative NITRITE UA (BEAKER) (test yurc=647) Negative Negative LEUKOCYTE ESTERASE UA (BEAKER) (test poyy=103) Large Negative UROBILINOGEN UA (BEAKER) (test aguj=295) 0.2 mg/dL 0.2-1.0 RBC UA (BEAKER) (test tmww=752) 0 /HPF WBC UA (BEAKER) (test yntg=062) 190 /HPF BACTERIA (BEAKER) (test pmom=823) Many MUCUS (BEAKER) (test ptjt=4730) Rare SQUAMOUS EPITHELIAL (BEAKER) (test mobc=802) 1 /HPF HYALINE CASTS (BEAKER) (test zwrd=043) 4 /LPF SOURCE(BEAKER) (test xmnn=8849) POCT-GLUCOSE [id number] 13:03:00 Test Item Value Reference Range Comments POC-GLUCOSE METER (BEAKER) 213 mg/dL 70-110 TESTED AT [facility] [address] (test pcqz=7086) [facility] [address] OCCULT BLOOD, [id number] 11:58:00 Test Item Value Reference Range Comments FECAL OCCULT BLOOD (BEAKER) (test mcuv=825) Positive Negative POCT-GLUCOSE [id number] 08:00:00 Test Item Value Reference Range Comments POC-GLUCOSE METER (BEAKER) 127 mg/dL 70-110 TESTED AT [facility] [address] (test uaiu=4810) [facility] [address] TROPONIN [id number] 07:07:00 Test Item Value Reference Range Comments TROPONIN I (BEAKER) (test kaew=928) 44.85 ng/mL 0.00-0.03 Troponin I (TnI) levels [...] and persistent tachyarrhythmia.RAD, CHEST, 1 VIEW, NON [id number] 07:00:00Reason for exam:->SOBShould this be performed at [...] Verified Date/Time: 08/04/2018 07:00: 06 Reading Location: [facility] C013V Neuro Reading Room COMPREHENSIVE METABOLIC [id number] 06:56:00 Test Item Value Reference Range Comments TOTAL PROTEIN (BEAKER) 5.7 gm/dL 6.0-8.3 (test wwyo=303) ALBUMIN (BEAKER) (test 3.2 g/dL 3.5-5.0 gwnv=0728) ALKALINE PHOSPHATASE 55 U/L 40-150 (BEAKER) (test evcv=358) BILIRUBIN TOTAL (BEAKER) 0.5 mg/dL 0.2-1.2 (test iaee=713) SODIUM (BEAKER) (test 138 meq/L 136-145 ktxt=315) POTASSIUM (BEAKER) (test 3.7 meq/L 3.5-5.1 qgol=480) CHLORIDE (BEAKER) (test 107 meq/L 98-107 pauf=897) CO2 (BEAKER) (test 24 meq/L 22-29 hprs=700) BLOOD UREA NITROGEN 61 mg/dL 7-21 (BEAKER) (test oaek=735) CREATININE (BEAKER) (test 2.88 mg/dL 0.57-1.25 gnyh=066) GLUCOSE RANDOM (BEAKER) 122 mg/dL 70-105 (test jfap=863) CALCIUM (BEAKER) (test 8.1 mg/dL 8.4-10.2 ckgr=655) AST (SGOT) (BEAKER) (test 71 U/L 5-34 cevs=887) ALT (SGPT) (BEAKER) (test 23 U/L 6-55 lwpz=152) EGFR (BEAKER) (test 16 mL/min/1.73 sq m ESTIMATED GFR IS NOT emut=8513) ACCURATE CREATININE CLEARANCE IN PREDICTING GLOMERULAR FILTRATION RATE. ESTIMATED GFR IS NOT APPLICABLE FOR DIALYSIS PATIENTS. [id number] 06:55:00 Test Item Value Reference Range Comments PHOSPHORUS (BEAKER) (test hcas=250) 2.8 mg/dL 2.3-4.7 [id number] 06:55:00 Test Item Value Reference Range Comments MAGNESIUM (BEAKER) (test wdqs=711) 1.9 mg/dL 1.6-2.6 CBC W/PLT COUNT & AUTO [id number] 06:12:00 Test Item Value Reference Range Comments WHITE BLOOD CELL COUNT (BEAKER) (test erop=806) 10.1 K/ L 3.5-10.5 RED BLOOD CELL COUNT (BEAKER) (test zoth=699) 3.03 M/ L 3.93-5.22 HEMOGLOBIN (BEAKER) (test wjnt=687) 9.3 GM/DL 11.2-15.7 HEMATOCRIT (BEAKER) (test ibqr=171) 28.5 % 34.1-44.9 MEAN CORPUSCULAR VOLUME (BEAKER) (test npmx=980) 94.1 fL 79.4-94.8 MEAN CORPUSCULAR HEMOGLOBIN (BEAKER) (test 30.7 pg 25.6-32.2 ksqg=837) MEAN CORPUSCULAR HEMOGLOBIN CONC (BEAKER) (test 32.6 GM/DL 32.2-35.5 lvzx=902) RED CELL DISTRIBUTION WIDTH (BEAKER) (test 13.4 % 11.7-14.4 kryk=547) PLATELET COUNT (BEAKER) (test jkls=728) 151 K/CU MM 150-450 MEAN PLATELET VOLUME (BEAKER) (test xpiz=268) 10.5 fL 9.4-12.3 NUCLEATED RED BLOOD CELLS (BEAKER) (test 0 /100 WBC 0-0 swmz=408) NEUTROPHILS RELATIVE PERCENT (BEAKER) (test 77 % eftu=799) LYMPHOCYTES RELATIVE PERCENT (BEAKER) (test 11 % cvac=052) MONOCYTES RELATIVE PERCENT (BEAKER) (test 11 % wybu=295) EOSINOPHILS RELATIVE PERCENT (BEAKER) (test 1 % dobs=271) BASOPHILS RELATIVE PERCENT (BEAKER) (test 0 % xxyb=061) NEUTROPHILS ABSOLUTE COUNT (BEAKER) (test 7.78 K/ L 1.56-6.13 tvzh=938) LYMPHOCYTES ABSOLUTE COUNT (BEAKER) (test 1.08 K/ L 1.18-3.74 ptfg=958) MONOCYTES ABSOLUTE COUNT (BEAKER) (test 1.09 K/ L 0.24-0.36 smgu=825) EOSINOPHILS ABSOLUTE COUNT (BEAKER) (test 0.07 K/ L 0.04-0.36 fuzc=361) BASOPHILS ABSOLUTE COUNT (BEAKER) (test 0.02 K/ L 0.01-0.08 oolb=892) IMMATURE GRANULOCYTES-RELATIVE PERCENT (BEAKER) 1 % 0-1 (test ofhj=4092) CALCIUM, [id number] 05:58:00 Test Item Value Reference Range Comments CALCIUM IONIZED (BEAKER) (test cfsm=581) 1.11 mmol/L 1.12-1.27 PH, BLOOD (BEAKER) (test hptb=5650) 7.38 POCT-GLUCOSE [id number] 22:08:00 Test Item Value Reference Range Comments POC-GLUCOSE METER (BEAKER) 163 mg/dL 70-110 TESTED AT [address] (test mwsa=4584) [place] [address] POCT-GLUCOSE [id number] 18:05:00 Test Item Value Reference Range Comments POC-GLUCOSE METER (BEAKER) 215 mg/dL 70-110 TESTED AT [address] (test fnqf=7430) [place] [id number] POCT-GLUCOSE [id number] 12:33:00 Test Item Value Reference Range Comments POC-GLUCOSE METER (BEAKER) 287 mg/dL 70-110 TESTED AT [address] (test ixap=6158) [place] [address] TROPONIN [id number] 10:28:00 Test Item Value Reference Range Comments TROPONIN I (JEEVANAKER) (test qjcf=719) 56.87 ng/mL 0.00-0.03 Troponin I (TnI) levels [...] Value Reference Range Comments CREATINE KINASE TOTAL (JEEVANAKER) (test hwhs=090) 601 U/L 29-200 RAD, CHEST, 1 VIEW, NON [id number] 08:51:00Reason for exam:->SOBShould this be performed at [...] MDReport Verified Date/Time: 08/03/2018 08:51:22 Reading Location: [facility] Radiology Reading Room [id number] 03:08:00 Test Item Value Reference Range Comments FERRITIN (BEAKER) (test yosm=009) 207 ng/mL 5-275 VITAMIN B12 AND [id number] 03:08:00 Test Item Value Reference Range Comments VITAMIN B12 (BEAKER) (test lqxg=557) 212 pg/mL 213-816 FOLATE (BEAKER) (test qief=088) 15.1 ng/mL >=7.0 COMPREHENSIVE METABOLIC [id number] 02:38:00 Test Item Value Reference Range Comments TOTAL PROTEIN (BEAKER) 5.7 gm/dL 6.0-8.3 (test imte=764) ALBUMIN (BEAKER) (test 3.2 g/dL 3.5-5.0 grbg=3251) ALKALINE PHOSPHATASE 55 U/L 40-150 (BEAKER) (test cady=572) BILIRUBIN TOTAL (BEAKER) 0.5 mg/dL 0.2-1.2 (test hjzy=815) SODIUM (BEAKER) (test 139 meq/L 136-145 fwnc=863) POTASSIUM (BEAKER) (test 4.6 meq/L 3.5-5.1 cijy=037) CHLORIDE (BEAKER) (test 107 meq/L 98-107 kznk=503) CO2 (BEAKER) (test 24 meq/L 22-29 gzev=886) BLOOD UREA NITROGEN 63 mg/dL 7-21 (BEAKER) (test zxjo=216) CREATININE (BEAKER) (test 2.96 mg/dL 0.57-1.25 jffg=193) GLUCOSE RANDOM (BEAKER) 205 mg/dL 70-105 (test ilom=867) CALCIUM (BEAKER) (test 8.7 mg/dL 8.4-10.2 qhbf=424) AST (SGOT) (BEAKER) (test 138 U/L 5-34 dyyt=600) ALT (SGPT) (BEAKER) (test 28 U/L 6-55 cvxj=071) EGFR (BEAKER) (test 15 mL/min/1.73 sq m ESTIMATED GFR IS NOT ptkd=4837) ACCURATE CREATININE CLEARANCE IN PREDICTING GLOMERULAR FILTRATION RATE. ESTIMATED GFR IS NOT APPLICABLE FOR DIALYSIS PATIENTS. [id number] 02:34:00 Test Item Value Reference Range Comments PHOSPHORUS (BEAKER) (test xhla=399) 4.7 mg/dL 2.3-4.7 [id number] 02:34:00 Test Item Value Reference Range Comments MAGNESIUM (BEAKER) (test xrim=137) 2.0 mg/dL 1.6-2.6 IRON, TIBC, % SAT. (WITHOUT FERRITIN)2018-08-03 02:34:00 Test Item Value Reference Range Comments IRON (BEAKER) (test wnnr=345) 27.0 ug/dL 40.0-160.0 TOTAL IRON BINDING CAPACITY (BEAKER) (test 221 ug/dL 250-450 tman=029) IRON % SATURATION (2) (BEAKER) (test qayf=0157) 12 % 20-55 CALCIUM, [id number] 02:26:00 Test Item Value Reference Range Comments CALCIUM IONIZED (BEAKER) (test vsst=042) 1.12 mmol/L 1.12-1.27 PH, BLOOD (BEAKER) (test rnru=1132) 7.27 CBC W/PLT COUNT & AUTO [id number] 02:20:00 Test Item Value Reference Range Comments WHITE BLOOD CELL COUNT (BEAKER) (test ojie=264) 12.5 K/ L 3.5-10.5 RED BLOOD CELL COUNT (BEAKER) (test sabf=535) 3.39 M/ L 3.93-5.22 HEMOGLOBIN (BEAKER) (test lxdc=871) 10.4 GM/DL 11.2-15.7 HEMATOCRIT (BEAKER) (test rwiu=662) 32.5 % 34.1-44.9 MEAN CORPUSCULAR VOLUME (BEAKER) (test tkyg=054) 95.9 fL 79.4-94.8 MEAN CORPUSCULAR HEMOGLOBIN (BEAKER) (test 30.7 pg 25.6-32.2 cyia=599) MEAN CORPUSCULAR HEMOGLOBIN CONC (BEAKER) (test 32.0 GM/DL 32.2-35.5 qsya=737) RED CELL DISTRIBUTION WIDTH (BEAKER) (test 13.6 % 11.7-14.4 nykv=238) PLATELET COUNT (BEAKER) (test lmwh=276) 155 K/CU MM 150-450 MEAN PLATELET VOLUME (BEAKER) (test wbti=333) 10.4 fL 9.4-12.3 NUCLEATED RED BLOOD CELLS (BEAKER) (test 0 /100 WBC 0-0 nfun=125) NEUTROPHILS RELATIVE PERCENT (BEAKER) (test 83 % ziwx=151) LYMPHOCYTES RELATIVE PERCENT (BEAKER) (test 8 % ncmw=033) MONOCYTES RELATIVE PERCENT (BEAKER) (test 9 % otem=708) EOSINOPHILS RELATIVE PERCENT (BEAKER) (test 0 % lksd=694) BASOPHILS RELATIVE PERCENT (BEAKER) (test 0 % dnez=975) NEUTROPHILS ABSOLUTE COUNT (BEAKER) (test 10.32 K/ L 1.56-6.13 yjth=588) LYMPHOCYTES ABSOLUTE COUNT (BEAKER) (test 1.01 K/ L 1.18-3.74 kcal=271) MONOCYTES ABSOLUTE COUNT (BEAKER) (test 1.07 K/ L 0.24-0.36 eoxg=768) EOSINOPHILS ABSOLUTE COUNT (BEAKER) (test 0.01 K/ L 0.04-0.36 frfl=331) BASOPHILS ABSOLUTE COUNT (BEAKER) (test 0.03 K/ L 0.01-0.08 jbiz=846) IMMATURE GRANULOCYTES-RELATIVE PERCENT (BEAKER) 1 % 0-1 (test pwkm=5742) RETICULOCYTE [id number] 02:16:00 Test Item Value Reference Range Comments RETICULOCYTE COUNT PCT (BEAKER) (test ylge=223) 2.7 % 0.5-1.7 POCT-GLUCOSE [id number] 01:12:00 Test Item Value Reference Range Comments POC-GLUCOSE METER (BEAKER) 239 mg/dL 70-110 TESTED AT [facility] [address] (test ufea=2213) [facility] [address] POCT-GLUCOSE [id number] 20:38:00 Test Item Value Reference Range Comments POC-GLUCOSE METER (BEAKER) 207 mg/dL 70-110 TESTED AT [address] (test hppw=2274) [facility] [address] POCT-GLUCOSE [id number] 16:39:00 Test Item Value Reference Range Comments POC-GLUCOSE METER (BEAKER) 216 mg/dL 70-110 TESTED AT [address] (test uyvj=9600) [place] [address] [id number] 12:20:00 Test Item Value Reference Range Comments PARTIAL THROMBOPLASTIN TIME (BEAKER) (test 36.6 seconds 22.5-36.0 leiz=973) 4 hours after the start of continuous infusion and 4 hours after any rate changePOCT-GLUCOSE [id number] 12:03:00 Test Item Value Reference Range Comments POC-GLUCOSE METER (BEAKER) 206 mg/dL 70-110 TESTED AT [address] (test vouf=6656) [place] [address] POCT-GLUCOSE [id number] 12:03:00 Test Item Value Reference Range Comments POC-GLUCOSE METER (BEAKER) 193 mg/dL 70-110 TESTED AT [address] (test erpf=8620) [place] [address] POCT-GLUCOSE [id number] 12:02:00 Test Item Value Reference Range Comments POC-GLUCOSE METER (BEAKER) 234 mg/dL 70-110 TESTED AT [address] (test vqfl=0629) [place] [address] POCT-GLUCOSE [id number] 12:02:00 Test Item Value Reference Range Comments POC-GLUCOSE METER (BEAKER) 211 mg/dL 70-110 TESTED AT [address] (test mxal=3337) [facility] [address] U/S, RENAL, [id number] 08:45:00Reason for exam:->CKDFINAL REPORT TECHNIQUE: Grayscale ultrasound [...] obtained for further evaluation. Signed: Rob Navarro MDReport Verified Date/Time: 08/02/2018 08: 45:50 Reading Location: [address] Radiology Reading Room Electronically signedby: ROB NAVARRO MD on 08/02/2018 08:45 AMPOCT-GLUCOSE [id number] 08:25:00 Test Item Value Reference Range Comments POC-GLUCOSE METER (BEAKER) 237 mg/dL 70-110 TESTED AT [address] (test rsok=6241) [facility] [address] [id number] 08:19:00 Test Item Value Reference Range Comments PARTIAL THROMBOPLASTIN TIME (BEAKER) (test 38.2 seconds 22.5-36.0 zlln=177) 4 hours after the start of continuous infusion and 4 hours after any rate changePOCT-GLUCOSE [id number] 07:14:00 Test Item Value Reference Range Comments POC-GLUCOSE METER (BEAKER) 246 mg/dL 70-110 TESTED AT [address] (test aewb=2469) [facility] [address] COMPREHENSIVE METABOLIC [id number] 04:58:00 Test Item Value Reference Range Comments TOTAL PROTEIN (BEAKER) 5.5 gm/dL 6.0-8.3 Specimen slightly (test nefy=523) hemolyzed ALBUMIN (BEAKER) (test 3.1 g/dL 3.5-5.0 Specimen slightly sffb=4504) hemolyzed ALKALINE PHOSPHATASE 54 U/L 40-150 (BEAKER) (test elcs=459) BILIRUBIN TOTAL (BEAKER) 0.7 mg/dL 0.2-1.2 Specimen slightly (test psyq=450) hemolyzed SODIUM (BEAKER) (test 135 meq/L 136-145 ctuh=114) POTASSIUM (BEAKER) (test 4.8 meq/L 3.5-5.1 Specimen slightly epnb=011) hemolyzed CHLORIDE (BEAKER) (test 108 meq/L 98-107 rgew=457) CO2 (BEAKER) (test 18 meq/L 22-29 zabg=593) BLOOD UREA NITROGEN 57 mg/dL 7-21 (BEAKER) (test rkfn=847) CREATININE (BEAKER) (test 2.27 mg/dL 0.57-1.25 Specimen slightly irxk=092) hemolyzed GLUCOSE RANDOM (BEAKER) 289 mg/dL 70-105 (test rrlu=276) CALCIUM (BEAKER) (test 8.6 mg/dL 8.4-10.2 uicx=533) AST (SGOT) (BEAKER) (test 94 U/L 5-34 Specimen slightly hrhg=364) hemolyzed ALT (SGPT) (BEAKER) (test 20 U/L 6-55 Specimen slightly rcft=715) hemolyzed EGFR (BEAKER) (test 21 mL/min/1.73 sq m ESTIMATED GFR IS NOT akfq=4483) ACCURATE CREATININE CLEARANCE IN PREDICTING GLOMERULAR FILTRATION RATE. ESTIMATED GFR IS NOT APPLICABLE FOR DIALYSIS PATIENTS. [id number] 04:52:00 Test Item Value Reference Range Comments PARTIAL THROMBOPLASTIN TIME (BEAKER) (test 37.5 seconds 22.5-36.0 fzeg=903) 4 hours after the start of continuous infusion and 4 hours after any rate changeRAD, CHEST, 1 VIEW, NON [id number] 04:44:00Reason for exam:-> impella positionShould this be [...] NATRIURETIC PEPTIDE (BEAKER) (test 1452 pg/mL 0-100 xlqr=317) [id number] 04:40:00 Test Item Value Reference Range Comments MAGNESIUM (BEAKER) (test 2.0 mg/dL 1.6-2.6 Specimen slightly hemolyzed acgq=066) [id number] 04:40:00 Test Item Value Reference Range Comments PHOSPHORUS (BEAKER) (test 4.7 mg/dL 2.3-4.7 Specimen slightly hemolyzed vvun=485) URIC [id number] 04:40:00 Test Item Value Reference Range Comments URIC ACID (BEAKER) (test 9.1 mg/dL 2.6-7.2 Specimen slightly hemolyzed lnsb=195) LACTIC ACID, [id number] 04:31:00 Test Item Value Reference Range Comments LACTATE BLOOD ARTERIAL (2) 0.9 mmol/L 0.5-2.2 Specimen slightly hemolyzed (BEAKER) (test pxiy=1893) BLOOD GAS, [id number] 04:25:00 Test Item Value Reference Range Comments PH ARTERIAL (BEAKER) (test qmgz=053) 7.31 7.35-7.45 PCO2 ARTERIAL (BEAKER) (test vucj=782) 40 mmHg 35-45 PO2 ARTERIAL (BEAKER) (test lcxq=002) 90 mmHg 80-90 O2 SATURATION ARTERIAL (BEAKER) (test etdj=102) 96.3 % 96.0-97.0 HCO3 ARTERIAL (BEAKER) (test rsyp=151) 20 mmol/L 21-29 BASE EXCESS ARTERIAL (BEAKER) (test jhts=443) -6.1 mmol/L -2.0-3.0 PATIENT TEMPERATURE (BEAKER) (test nyoq=0759) 36.7 C FIO2 (BEAKER) (test yipm=1625) 36.0 % GLUCOSE-STAT [id number] 04:25:00 Test Item Value Reference Range Comments GLUCOSE RANDOM (BEAKER) (test jcib=357) 272 mg/dL 70-110 HGB/HCT (H&H) - STAT [id number] 04:25:00 Test Item Value Reference Range Comments HEMOGLOBIN (BEAKER) (test wlwm=851) 10.9 g/dL 12.0-15.0 HEMATOCRIT (BEAKER) (test lufu=921) 32.0 % 36.0-45.0 CBC W/PLT COUNT & AUTO [id number] 04:24:00 Test Item Value Reference Range Comments WHITE BLOOD CELL COUNT (BEAKER) (test bgxp=814) 14.8 K/ L 3.5-10.5 RED BLOOD CELL COUNT (BEAKER) (test sbsd=039) 3.43 M/ L 3.93-5.22 HEMOGLOBIN (BEAKER) (test odvc=724) 10.3 GM/DL 11.2-15.7 HEMATOCRIT (BEAKER) (test vxek=311) 32.3 % 34.1-44.9 MEAN CORPUSCULAR VOLUME (BEAKER) (test nibq=608) 94.2 fL 79.4-94.8 MEAN CORPUSCULAR HEMOGLOBIN (BEAKER) (test 30.0 pg 25.6-32.2 vvnh=452) MEAN CORPUSCULAR HEMOGLOBIN CONC (BEAKER) (test 31.9 GM/DL 32.2-35.5 ennk=870) RED CELL DISTRIBUTION WIDTH (BEAKER) (test 13.2 % 11.7-14.4 gwyr=887) PLATELET COUNT (BEAKER) (test jlmz=548) 171 K/CU MM 150-450 MEAN PLATELET VOLUME (BEAKER) (test rgpp=453) 10.1 fL 9.4-12.3 NUCLEATED RED BLOOD CELLS (BEAKER) (test 0 /100 WBC 0-0 bdwf=399) NEUTROPHILS RELATIVE PERCENT (BEAKER) (test 84 % eogi=343) LYMPHOCYTES RELATIVE PERCENT (BEAKER) (test 9 % zwwc=507) MONOCYTES RELATIVE PERCENT (BEAKER) (test 7 % eiah=874) EOSINOPHILS RELATIVE PERCENT (BEAKER) (test 0 % llds=162) BASOPHILS RELATIVE PERCENT (BEAKER) (test 0 % ybxh=932) NEUTROPHILS ABSOLUTE COUNT (BEAKER) (test 12.38 K/ L 1.56-6.13 tirj=549) LYMPHOCYTES ABSOLUTE COUNT (BEAKER) (test 1.30 K/ L 1.18-3.74 usdx=477) MONOCYTES ABSOLUTE COUNT (BEAKER) (test 1.04 K/ L 0.24-0.36 anxv=451) EOSINOPHILS ABSOLUTE COUNT (BEAKER) (test 0.00 K/ L 0.04-0.36 xace=631) BASOPHILS ABSOLUTE COUNT (BEAKER) (test 0.02 K/ L 0.01-0.08 obhq=730) IMMATURE GRANULOCYTES-RELATIVE PERCENT (BEAKER) 1 % 0-1 (test bwsw=8334) CALCIUM, [id number] 04:22:00 Test Item Value Reference Range Comments CALCIUM IONIZED (BEAKER) (test lxuv=984) 1.20 mmol/L 1.12-1.27 PH, BLOOD (BEAKER) (test uudg=6357) 7.31 SODIUM NA-STAT [id number] 04:21:00 Test Item Value Reference Range Comments SODIUM (BEAKER) (test vfic=829) 136 meq/L 135-148 POTASSIUM-STAT [id number] 04:21:00 Test Item Value Reference Range Comments POTASSIUM (BEAKER) (test fouc=273) 4.6 meq/L 3.6-5.5 LACTIC ACID, [id number] 00:13:00 Test Item Value Reference Range Comments LACTATE BLOOD ARTERIAL (2) (BEAKER) (test 0.7 mmol/L 0.5-2.2 piqq=9210) SODIUM NA-STAT [id number] 23:59:00 Test Item Value Reference Range Comments SODIUM (BEAKER) (test dkdt=427) 136 meq/L 135-148 POTASSIUM-STAT [id number] 23:59:00 Test Item Value Reference Range Comments POTASSIUM (BEAKER) (test rpcp=058) 4.8 meq/L 3.6-5.5 BLOOD GAS, [id number] 23:59:00 Test Item Value Reference Range Comments PH ARTERIAL (BEAKER) (test bxbe=513) 7.31 7.35-7.45 PCO2 ARTERIAL (BEAKER) (test dkbq=360) 42 mmHg 35-45 PO2 ARTERIAL (BEAKER) (test biod=647) 78 mmHg 80-90 O2 SATURATION ARTERIAL (BEAKER) (test tfta=572) 94.7 % 96.0-97.0 HCO3 ARTERIAL (BEAKER) (test yhpc=663) 21 mmol/L 21-29 BASE EXCESS ARTERIAL (BEAKER) (test yira=879) -5.2 mmol/L -2.0-3.0 PATIENT TEMPERATURE (BEAKER) (test slyb=6716) 36.7 C FIO2 (BEAKER) (test ifwb=2274) 36.0 % GLUCOSE-STAT [id number] 23:59:00 Test Item Value Reference Range Comments GLUCOSE RANDOM (BEAKER) (test jqnh=933) 275 mg/dL 70-110 HGB/HCT (H&H) - STAT [id number] 23:59:00 Test Item Value Reference Range Comments HEMOGLOBIN (BEAKER) (test tuyi=041) 11.3 g/dL 12.0-15.0 HEMATOCRIT (BEAKER) (test aase=872) 33.0 % 36.0-45.0 [id number] 21:53:00 Test Item Value Reference Range Comments PARTIAL THROMBOPLASTIN TIME (BEAKER) (test 63.4 seconds 22.5-36.0 xjsc=933) 4 hours after the start of continuous infusion and 4 hours after any rate changeCOMPREHENSIVE METABOLIC [id number] 19:43:00 Test Item Value Reference Range Comments TOTAL PROTEIN (BEAKER) 5.8 gm/dL 6.0-8.3 Specimen slightly (test qcez=173) hemolyzed ALBUMIN (BEAKER) (test 3.3 g/dL 3.5-5.0 Specimen slightly zakx=7368) hemolyzed ALKALINE PHOSPHATASE 57 U/L 40-150 (BEAKER) (test rlub=008) BILIRUBIN TOTAL (BEAKER) 0.9 mg/dL 0.2-1.2 Specimen slightly (test mfxq=587) hemolyzed SODIUM (BEAKER) (test 137 meq/L 136-145 bany=241) POTASSIUM (BEAKER) (test 4.8 meq/L 3.5-5.1 Specimen slightly nowt=448) hemolyzed CHLORIDE (BEAKER) (test 109 meq/L 98-107 kdmm=551) CO2 (BEAKER) (test 20 meq/L 22-29 hfbb=631) BLOOD UREA NITROGEN 56 mg/dL 7-21 (BEAKER) (test chei=368) CREATININE (BEAKER) (test 2.26 mg/dL 0.57-1.25 Specimen slightly yxkl=272) hemolyzed GLUCOSE RANDOM (BEAKER) 235 mg/dL 70-105 (test ryyn=534) CALCIUM (BEAKER) (test 9.2 mg/dL 8.4-10.2 kjle=869) AST (SGOT) (BEAKER) (test 27 U/L 5-34 Specimen slightly gail=400) hemolyzed ALT (SGPT) (BEAKER) (test 13 U/L 6-55 Specimen slightly anjr=176) hemolyzed EGFR (BEAKER) (test 21 mL/min/1.73 sq m ESTIMATED GFR IS NOT abmt=0937) ACCURATE CREATININE CLEARANCE IN PREDICTING GLOMERULAR FILTRATION RATE. ESTIMATED GFR IS NOT APPLICABLE FOR DIALYSIS PATIENTS. Call k > 5, [id number] 19:41:00 Test Item Value Reference Range Comments SODIUM (BEAKER) (test tejc=133) 137 meq/L 136-145 POTASSIUM (BEAKER) (test 4.8 meq/L 3.5-5.1 Specimen slightly hemolyzed gddv=245) CHLORIDE (BEAKER) (test 109 meq/L 98-107 cefg=556) CO2 (BEAKER) (test vzxx=273) 20 meq/L 22-29 Call k > 5, [id number] 19:37:00 Test Item Value Reference Range Comments PROTIME (BEAKER) (test oswi=749) 33.9 seconds 11.9-14.2 INR (BEAKER) (test vvzn=434) 3.6 <=5.9 PARTIAL THROMBOPLASTIN TIME (BEAKER) (test 85.5 seconds 22.5-36.0 uxtr=124) Effective 07/18/2018: PT Reference Range ChangeNew: 11.9-14.2 Previous: 11.7- 14.7RECOMMENDED COUMADIN/WARFARIN INR THERAPY RANGESSTANDARD DOSE: 2.0-3.0 Includes: PROPHYLAXIS for venous thrombosis, systemic embolization; TREATMENT for venous thrombosis and/or pulmonary embolus.HIGH RISK: Target INR is2.5-3.5 for patients wiht mechanical heart valves.[id number] 19:36:00 Test Item Value Reference Range Comments FIBRINOGEN LEVEL (BEAKER) (test mdfn=648) 336 mg/dl 225-434 LACTIC ACID, [id number] 19:34:00 Test Item Value Reference Range Comments LACTATE BLOOD ARTERIAL (2) 1.3 mmol/L 0.5-2.2 Specimen slightly hemolyzed (BEAKER) (test uqnq=2854) CBC (HEMOGRAM ONLY)[id number] 19:23:00 Test Item Value Reference Range Comments WHITE BLOOD CELL COUNT (BEAKER) (test tswy=402) 14.1 K/ L 3.5-10.5 RED BLOOD CELL COUNT (BEAKER) (test zjuv=861) 3.68 M/ L 3.93-5.22 HEMOGLOBIN (BEAKER) (test wyow=759) 11.3 GM/DL 11.2-15.7 HEMATOCRIT (BEAKER) (test xdhr=442) 34.6 % 34.1-44.9 MEAN CORPUSCULAR VOLUME (BEAKER) (test brjq=846) 94.0 fL 79.4-94.8 MEAN CORPUSCULAR HEMOGLOBIN (BEAKER) (test 30.7 pg 25.6-32.2 vgah=492) MEAN CORPUSCULAR HEMOGLOBIN CONC (BEAKER) (test 32.7 GM/DL 32.2-35.5 ufqp=628) RED CELL DISTRIBUTION WIDTH (BEAKER) (test 13.1 % 11.7-14.4 ffka=512) PLATELET COUNT (BEAKER) (test rxqt=812) 207 K/CU MM 150-450 MEAN PLATELET VOLUME (BEAKER) (test lkla=594) 9.9 fL 9.4-12.3 NUCLEATED RED BLOOD CELLS (BEAKER) (test 0 /100 WBC 0-0 trkf=236) BLOOD GAS, [id number] 19:16:00 Test Item Value Reference Range Comments PH ARTERIAL (BEAKER) (test dzfi=868) 7.35 7.35-7.45 PCO2 ARTERIAL (BEAKER) (test sfbw=770) 39 mmHg 35-45 PO2 ARTERIAL (BEAKER) (test ecmh=983) 50 mmHg 80-90 O2 SATURATION ARTERIAL (BEAKER) (test fpfe=206) 84.5 % 96.0-97.0 HCO3 ARTERIAL (BEAKER) (test prxt=181) 21 mmol/L 21-29 BASE EXCESS ARTERIAL (BEAKER) (test yxvn=455) -4.5 mmol/L -2.0-3.0 PATIENT TEMPERATURE (BEAKER) (test kewa=8631) 36.7 C FIO2 (BEAKER) (test ebac=0042) 36.0 % GLUCOSE-STAT [id number] 19:16:00 Test Item Value Reference Range Comments GLUCOSE RANDOM (BEAKER) (test qzym=947) 231 mg/dL 70-110 HGB/HCT (H&H) - STAT [id number] 19:16:00 Test Item Value Reference Range Comments HEMOGLOBIN (BEAKER) (test ozyb=924) 11.5 g/dL 12.0-15.0 HEMATOCRIT (BEAKER) (test mgmi=027) 34.0 % 36.0-45.0 CALCIUM, [id number] 19:15:00 Test Item Value Reference Range Comments CALCIUM IONIZED (BEAKER) (test krzp=430) 1.26 mmol/L 1.12-1.27 PH, BLOOD (BEAKER) (test dulb=4793) 7.35 OXYGEN SATURATION, [id number] 19:14:00 Test Item Value Reference Range Comments O2 SATURATION (MEASURED) (BEAKER) (test jzch=8686) 41.9 % SODIUM NA-STAT [id number] 19:14:00 Test Item Value Reference Range Comments SODIUM (BEAKER) (test wvtg=804) 138 meq/L 135-148 POTASSIUM-STAT [id number] 19:14:00 Test Item Value Reference Range Comments POTASSIUM (BEAKER) (test bcag=403) 4.7 meq/L 3.6-5.5 [id number] 16:45:00 Test Item Value Reference Range Comments ACTIVATED CLOTTING TIME 389 sec TESTED AT [facility] [address] [facility] (BEAKER) (test fldr=064) [place] [address] HEMOGLOBIN AND [id number] 16:38:00 Test Item Value Reference Range Comments HEMOGLOBIN (BEAKER) (test kben=993) 10.1 GM/DL 11.2-15.7 HEMATOCRIT (BEAKER) (test ksjt=321) 31.6 % 34.1-44.9 PLATELET AGGREGATION: FUNCTION [id number] 16:05:00 Test Item Value Reference Range Comments WEAK ADP RESULT(BEAKER) (test 34 % 60-91 xqmk=4334) PLATELET FUNCTION SCREEN 0-39% indicates marked platelet INTERP (BEAKER) (test dysfunction kxzm=7057) [id number] Talia Villarreal MD (BEAKER) (test ydjd=1508) (electronic signature) PLATELET COUNT AGG (BEAKER) 186 K/CU MM 150-450 (test gncg=6531) Platelet Function Screen results may be falsely low with platelet counts<100, 000/cu mm.[id number] 15:02:00 Test Item Value Reference Range Comments ACTIVATED CLOTTING TIME 411 sec TESTED AT [address] (BEAKER) (test duna=750) [place] [id number] POCT-GLUCOSE [id number] 12:17:00 Test Item Value Reference Range Comments POC-GLUCOSE METER (BEAKER) 103 mg/dL 70-110 TESTED AT [address] (test gzss=6074) [place] [address] POCT-GLUCOSE [id number] 08:18:00 Test Item Value Reference Range Comments POC-GLUCOSE METER (BEAKER) 388 mg/dL 70-110 TESTED AT [address] (test qbpd=5193) [place] [address] HEPATIC FUNCTION [id number] 08:09:00 Test Item Value Reference Range Comments TOTAL PROTEIN (BEAKER) (test 6.2 gm/dL 6.0-8.3 Specimen slightly hemolyzed onfj=241) ALBUMIN (BEAKER) (test 3.4 g/dL 3.5-5.0 Specimen slightly hemolyzed dvpp=2378) BILIRUBIN TOTAL (BEAKER) (test 0.4 mg/dL 0.2-1.2 Specimen slightly hemolyzed nxvk=106) BILIRUBIN DIRECT (BEAKER) (test 0.1 mg/dL 0.1-0.5 Specimen slightly hemolyzed rmei=829) ALKALINE PHOSPHATASE (BEAKER) 59 U/L 40-150 (test aaoh=478) AST (SGOT) (BEAKER) (test 19 U/L 5-34 Specimen slightly hemolyzed husl=339) ALT (SGPT) (BEAKER) (test 10 U/L 6-55 Specimen slightly hemolyzed qfhh=771) TROPONIN [id number] 06:39:00 Test Item Value Reference Range Comments TROPONIN I (BEAKER) (test gpqd=761) 0.26 ng/mL 0.00-0.03 Troponin I (TnI) levels [...] acidosis, acute neurological disease, and persistent tachyarrhythmia.POCT-GLUCOSE [id number] 06:36:00 Test Item Value Reference Range Comments POC-GLUCOSE METER (BEAKER) 415 mg/dL 70-110 TESTED AT [address] (test ztpz=0458) [facility] [address] BASIC METABOLIC [id number] 06:10:00 Test Item Value Reference Range Comments SODIUM (BEAKER) (test 135 meq/L 136-145 ksoo=312) POTASSIUM (BEAKER) (test 4.9 meq/L 3.5-5.1 Specimen slightly eren=758) hemolyzed CHLORIDE (BEAKER) (test 104 meq/L 98-107 kock=691) CO2 (BEAKER) (test 21 meq/L 22-29 fffq=841) BLOOD UREA NITROGEN 53 mg/dL 7-21 (BEAKER) (test mzqi=781) CREATININE (BEAKER) (test 2.28 mg/dL 0.57-1.25 Specimen slightly czjd=021) hemolyzed GLUCOSE RANDOM (BEAKER) 473 mg/dL 70-105 (test xdqp=656) CALCIUM (BEAKER) (test 8.7 mg/dL 8.4-10.2 aobp=755) EGFR (BEAKER) (test 21 mL/min/1.73 sq m ESTIMATED GFR IS NOT ybpg=3964) ACCURATE CREATININE CLEARANCE IN PREDICTING GLOMERULAR FILTRATION RATE. ESTIMATED GFR IS NOT APPLICABLE FOR DIALYSIS PATIENTS. [id number] 06:03:00 Test Item Value Reference Range Comments MAGNESIUM (BEAKER) (test 2.2 mg/dL 1.6-2.6 Specimen slightly hemolyzed dwlz=558) THROMBIN [id number] 05:09:00 Test Item Value Reference Range Comments THROMBIN TIME (BEAKER) (test qqzr=024) 64.9 secs 13.8-20.0 Draw baseline aPTT prior to [id number] 05:08:00 Test Item Value Reference Range Comments PARTIAL THROMBOPLASTIN TIME (BEAKER) (test 43.1 seconds 22.5-36.0 fkkn=063) Draw baseline aPTT prior to infusionPROTHROMBIN TIME/[id number] 05:07:00 Test Item Value Reference Range Comments PROTIME (BEAKER) (test tzfi=622) 15.0 seconds 11.9-14.2 INR (BEAKER) (test sblm=170) 1.2 <=5.9 Effective 07/18/2018: PT Reference Range ChangeNew: 11.9-14.2 Previous: 11.7- 14.7RECOMMENDED COUMADIN/WARFARIN INR THERAPY RANGESSTANDARD DOSE: 2.0-3.0 Includes: PROPHYLAXIS for venous thrombosis, systemic embolization; TREATMENT for venous thrombosis and/or pulmonary embolus.HIGH RISK: Target INR is2.5-3.5 for patients wiht mechanical heart valves.Draw baseline aPTT prior to infusionCBC W/PLT COUNT & AUTO [id number] 04:59:00 Test Item Value Reference Range Comments WHITE BLOOD CELL COUNT (BEAKER) (test qnhe=770) 7.0 K/ L 3.5-10.5 RED BLOOD CELL COUNT (BEAKER) (test eecr=568) 3.82 M/ L 3.93-5.22 HEMOGLOBIN (BEAKER) (test btmj=295) 11.7 GM/DL 11.2-15.7 HEMATOCRIT (BEAKER) (test jmyu=833) 35.9 % 34.1-44.9 MEAN CORPUSCULAR VOLUME (BEAKER) (test qfst=231) 94.0 fL 79.4-94.8 MEAN CORPUSCULAR HEMOGLOBIN (BEAKER) (test 30.6 pg 25.6-32.2 ovyd=801) MEAN CORPUSCULAR HEMOGLOBIN CONC (BEAKER) (test 32.6 GM/DL 32.2-35.5 gdtb=328) RED CELL DISTRIBUTION WIDTH (BEAKER) (test 12.8 % 11.7-14.4 cxap=236) PLATELET COUNT (BEAKER) (test srby=447) 225 K/CU MM 150-450 MEAN PLATELET VOLUME (BEAKER) (test lbrh=639) 10.5 fL 9.4-12.3 NUCLEATED RED BLOOD CELLS (BEAKER) (test 0 /100 WBC 0-0 hwqp=593) NEUTROPHILS RELATIVE PERCENT (BEAKER) (test 87 % vqwj=787) LYMPHOCYTES RELATIVE PERCENT (BEAKER) (test 10 % sisu=771) MONOCYTES RELATIVE PERCENT (BEAKER) (test 2 % ceeb=925) EOSINOPHILS RELATIVE PERCENT (BEAKER) (test 0 % qtte=370) BASOPHILS RELATIVE PERCENT (BEAKER) (test 0 % qefa=154) NEUTROPHILS ABSOLUTE COUNT (BEAKER) (test 6.10 K/ L 1.56-6.13 pfqk=488) LYMPHOCYTES ABSOLUTE COUNT (BEAKER) (test 0.72 K/ L 1.18-3.74 payf=892) MONOCYTES ABSOLUTE COUNT (BEAKER) (test 0.14 K/ L 0.24-0.36 hbos=632) EOSINOPHILS ABSOLUTE COUNT (BEAKER) (test 0.00 K/ L 0.04-0.36 hurn=320) BASOPHILS ABSOLUTE COUNT (BEAKER) (test 0.01 K/ L 0.01-0.08 rloy=918) IMMATURE GRANULOCYTES-RELATIVE PERCENT (BEAKER) 1 % 0-1 (test ixgh=5096) RAD, CHEST, 1 VIEW, NON [id number] 04:33:00Reason for exam:->preopShould this be performed at the bedside?->YesFINAL REPORT RAD, CHEST, 1 VIEW, NON DEPT INDICATION: preop COMPARISON: Prior day's exam FINDINGS: Portable frontal view of the chest. IMPRESSION: Support Lines: Stable. Lungs and pleura: Unchanged airspace and pleural opacities. No pneumothorax.Heart and mediastinum: Stable contours. Additional findings: None. Signed: Desire Méndezkarlie Verified Date/Time: 08/01/2018 04:33:15 RAD , CHEST, 1 VIEW, NON [id number] 00:02:00Reason for exam:->Intraaortic balloon pump insertionShould this [...] of the cervical spine. Signed: Desire M[facility]dez [facility] Verified Date/Time: 08/01/2018 00:02:19 Electronically signed by: DESIRE MÉNDEZ MD on08/01/2018 12:02 AMTSH/FREE T4 IF [id number] 21:34:00 Test Item Value Reference Range Comments THYROID STIMULATING HORMONE (BEAKER) (test 0.99 uIU/mL 0.35-4.94 jkpz=309) TROPONIN [id number] 21:26:00 Test Item Value Reference Range Comments TROPONIN I (BEAKER) (test neij=779) 0.28 ng/mL 0.00-0.03 Troponin I (TnI) levels [...] NATRIURETIC PEPTIDE (BEAKER) (test 633 pg/mL 0-100 axdq=760) RAD, CHEST, 1 VIEW, NON [id number] 21:20:00Reason for exam:->unstable anginaShould this be performed at the bedside?->YesFINAL REPORT Portable chest. HISTORY: Unstable angina. COMPARISON STUDY: Noneavailable. FINDINGS: The cardiac size is enlarged. There are bilateral increased interstitial markings with some atelectasis or fibrosis in the lung bases. No pleural effusion or pneumothorax is seen. Degenerative changes and osteopenia are seen. IMPRESSION: Cardiomegaly with increased interstitial markings. Signed: Jonathan Gillis MDReport Verified Date/Time: 07/31/2018 21:20 :52 Reading Location: [facility] [id number] Consult Reading Room BASI METABOLIC [id number] 21:18:00 Test Item Value Reference Range Comments SODIUM (BEAKER) (test 137 meq/L 136-145 ktrv=260) POTASSIUM (BEAKER) (test 4.6 meq/L 3.5-5.1 hkus=427) CHLORIDE (BEAKER) (test 104 meq/L 98-107 cdcq=894) CO2 (BEAKER) (test 25 meq/L 22-29 tqwm=467) BLOOD UREA NITROGEN 47 mg/dL 7-21 (BEAKER) (test emab=342) CREATININE (BEAKER) (test 2.18 mg/dL 0.57-1.25 qknm=753) GLUCOSE RANDOM (BEAKER) 223 mg/dL 70-105 (test zexd=111) CALCIUM (BEAKER) (test 9.1 mg/dL 8.4-10.2 tqhv=466) EGFR (BEAKER) (test 22 mL/min/1.73 sq m ESTIMATED GFR IS NOT fons=8827) ACCURATE CREATININE CLEARANCE IN PREDICTING GLOMERULAR FILTRATION RATE. ESTIMATED GFR IS NOT APPLICABLE FOR DIALYSIS PATIENTS. HEPATIC FUNCTION [id number] 21:15:00 Test Item Value Reference Range Comments TOTAL PROTEIN (BEAKER) (test pbqj=434) 6.8 gm/dL 6.0-8.3 ALBUMIN (BEAKER) (test wcui=6865) 3.8 g/dL 3.5-5.0 BILIRUBIN TOTAL (BEAKER) (test cgnl=123) 0.6 mg/dL 0.2-1.2 BILIRUBIN DIRECT (BEAKER) (test xqpt=246) 0.3 mg/dL 0.1-0.5 ALKALINE PHOSPHATASE (BEAKER) (test jego=182) 67 U/L 40-150 AST (SGOT) (BEAKER) (test utrt=762) 14 U/L 5-34 ALT (SGPT) (BEAKER) (test nkah=548) 10 U/L 6-55 [id number] 20:57:00 Test Item Value Reference Range Comments PARTIAL THROMBOPLASTIN TIME (BEAKER) (test 27.7 seconds 22.5-36.0 rdii=494) PROTHROMBIN [id number] 20:56:00 Test Item Value Reference Range Comments PROTIME (BEAKER) (test dzyu=559) 13.1 seconds 11.9-14.2 INR (BEAKER) (test rdzo=430) 1.0 <=5.9 Effective 07/18/2018: PT Reference Range ChangeNew: 11.9-14.2 Previous: 11.7- 14.7RECOMMENDED COUMADIN/WARFARIN INR THERAPY RANGESSTANDARD DOSE: 2.0-3.0 Includes: PROPHYLAXIS for venous thrombosis, systemic embolization; TREATMENT for venous thrombosis and/or pulmonary embolus.HIGH RISK: Target INR is2.5-3.5 for patients wiht mechanical heart valves.CBC W/PLT COUNT & AUTO [id number] 20:50:00 Test Item Value Reference Range Comments WHITE BLOOD CELL COUNT (BEAKER) (test htrz=594) 8.4 K/ L 3.5-10.5 RED BLOOD CELL COUNT (BEAKER) (test ctvq=183) 4.23 M/ L 3.93-5.22 HEMOGLOBIN (BEAKER) (test eoxr=817) 13.0 GM/DL 11.2-15.7 HEMATOCRIT (BEAKER) (test ubub=959) 41.2 % 34.1-44.9 MEAN CORPUSCULAR VOLUME (BEAKER) (test hocr=688) 97.4 fL 79.4-94.8 MEAN CORPUSCULAR HEMOGLOBIN (BEAKER) (test 30.7 pg 25.6-32.2 fltv=040) MEAN CORPUSCULAR HEMOGLOBIN CONC (BEAKER) (test 31.6 GM/DL 32.2-35.5 xuxs=866) RED CELL DISTRIBUTION WIDTH (BEAKER) (test 12.8 % 11.7-14.4 mpup=505) PLATELET COUNT (BEAKER) (test xhjh=051) 230 K/CU MM 150-450 MEAN PLATELET VOLUME (BEAKER) (test xeug=592) 9.9 fL 9.4-12.3 NUCLEATED RED BLOOD CELLS (BEAKER) (test 0 /100 WBC 0-0 cjha=285) NEUTROPHILS RELATIVE PERCENT (BEAKER) (test 87 % drhx=978) LYMPHOCYTES RELATIVE PERCENT (BEAKER) (test 12 % ninj=833) MONOCYTES RELATIVE PERCENT (BEAKER) (test 1 % rlak=151) EOSINOPHILS RELATIVE PERCENT (BEAKER) (test 0 % rxyr=340) BASOPHILS RELATIVE PERCENT (BEAKER) (test 0 % sctm=523) NEUTROPHILS ABSOLUTE COUNT (BEAKER) (test 7.32 K/ L 1.56-6.13 qsmk=463) LYMPHOCYTES ABSOLUTE COUNT (BEAKER) (test 0.98 K/ L 1.18-3.74 kxql=734) MONOCYTES ABSOLUTE COUNT (BEAKER) (test 0.08 K/ L 0.24-0.36 wfcj=582) EOSINOPHILS ABSOLUTE COUNT (BEAKER) (test 0.00 K/ L 0.04-0.36 anfk=842) BASOPHILS ABSOLUTE COUNT (BEAKER) (test 0.01 K/ L 0.01-0.08 momp=389) IMMATURE GRANULOCYTES-RELATIVE PERCENT (BEAKER) 0 % 0-1 (test wnmz=2732) [id number] 19:45:00 Test Item Value Reference Range Comments TROPONIN-I (test 0.18 ng/mL 0.00-0.05 RESULTS CALLED TO SOLITARIO SCHUMACHER code=TROPI) AT 1945 07/28/18.Oly Malloy L VALUE READ BACK BY NURSE AND VERIFIED BY TECH? Y<0.05 Normal0.06 - 0.39 Consistent with circulating Troponin with possible Myocardial injury.>0.40 Consistent with Myocardial injury extensive enough to conform with AMI as defined by WHO. COMPREHENSIVE METABOLIC [id number] 16:08:00 Test Item Value Reference Range Comments [...] 45-117 (test code=ALKP) - XR CHEST 1 [id number] 15:43:00 FAX: Colin SamsRhett Mckeon [phone] Cam[place]: ER St: REG Name: [facility]- Emergency Services : 1940 Age/S: 78/F [address] Unit #: [id number] Loc: VR.ER [place], [place] [address] Phys: Rhett Sams MD Acct: [id number] Dis Date: Status: REG ER PHONE #: [phone] Exam Date: 07/28/2018 1527 FAX #: [phone] Reason: CP EXAMS: CPT CODE: [id number] XR CHEST 1 V 34065 Examination: Chest 1 view Location code: S17 Comparison: None Discussion: Clinical history is remarkable for chest tightness. Cardiac silhouette is slightly enlarged, atherosclerotic change present. There are coarsened interstitial changes present bilaterally, mild bilateral parenchymal basilar scarring noted. Impression: 1. Coarsened interstitial changes with likely bilateral basilar parenchymal scarring. Electronically Signed by TONIA BNUN M.D. on 09/2018 at 2466 Reported and signed by: YUAN BUNN M.D. CC: Rhett Sams MDTechnologist: HESHAM FONG RT,(R) ARRT Transcribed Date/Time/By: 07/28/2018 (3727) : [id number] Orig Print D/T: S: 07/28/2018 (7739) Automated exposure control, iterative reconstruction technique, and/ oradjustment of mA and/or kV according to patient's size was utilizedfor optimum radiation dose reduction. PAGE 1 Signed ReportTROPONIN I [id number] 15:37:00 Test Item Value Reference Range Comments TROPONIN I RAPID (test 0.03 NG/ML 0.00-0.08 0.00 - 0.08 Normal0.09 - code=TROPIRAP) 0.40 Indeterminate for AMI 0.41 and above Compatible with AMI CHEMISTRY 8 [id number] 15:36:00 Test Item Value Reference Range Comments [...] (test code=CREATBED) 2.6 MG/DL 0.6-1.0 CBC W/AUTO [id number] 15:34:00 Test Item Value Reference Range Comments [...]
--- OUTSIDE RECORDS SUMMARY | 2019-01-25 11:15 | XMS REPORT ---
:1940 Author Organization eClinicalWorks Care Team Providers Name Role Phone PerryMuh Provider Role Unavailable Allergies, Adverse Reactions, Alerts Substance Reaction Event Type Levaquin Info Not Available Drug Allergy Benadryl Info Not Available Drug Allergy Amiodarone HCl Info Not Available Drug Allergy ALL PAIN NARCOTICS Swelling of throat, hands Non Drug Allergy CONTRAST DYE Info Not Available Non Drug Allergy Problems Problem Type Condition Code Onset Dates Condition Status Assessment Proteinuria, unspecified R80.9 Active Assessment Left sided numbness R20.0 Active Assessment Hypertensive heart disease without I11.9 Active heart failure Assessment 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 Active classified elsewhere Assessment [facility], active care Z78.9 Active coordination Assessment Chronic kidney disease, stage 4 N18.4 Active (severe) Assessment Type 2 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 Assessment Chronic systolic congestive heart I50.22 Active failure Assessment Need for home health care Z74.2 Active Problem Type 2 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 Assessment Coronary artery disease involving I25.110 Active [place] coronary artery of [place] heart with unstable angina pectoris Problem 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 Active classified elsewhere Problem Chronic kidney disease, stage 4 N18.4 Active (severe) Problem 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 knee Problem Hypertensive heart disease without I11.9 Active heart failure Problem 3-vessel coronary artery disease I25.10 Active Problem Coronary artery disease involving I25.110 Active [place] coronary artery of [place] heart with unstable angina pectoris Problem Proteinuria, unspecified R80.9 Active Problem Cervical stenosis (uterine cervix) N88.2 Active Assessment H/O stroke without residual Z86.73 Active deficits Problem Stented coronary artery Z95.5 Active Problem Mixed hyperlipidemia E78.2 Active Assessment correction current 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 Z79.4 Active Problem Pain, joint, knee, right M25.561 Active Assessment 3-vessel coronary artery disease I25.10 Active Problem Primary osteoarthritis of left knee M17.12 Active Problem Adult BMI 36.0-36.9 kg/sq m Z68.36 Active Problem Acute pain of left knee M25.562 Active Assessment Mixed hyperlipidemia E78.2 Active Problem At risk for falling Z91.81 Active Assessment History of coronary artery stent Z95.5 Active placement Problem Atherosclerosis of [place] coronary I25.10 Active artery Assessment Other osteoporosis M81.8 Active Problem Chronic kidney disease (CKD), stage N18.4 Active IV (severe) Assessment At risk for falling Z91.81 Active Problem Other osteoporosis M81.8 Active Assessment Adult BMI 36.0-36.9 kg/sq m Z68.36 Active Problem intermediate designer current 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 Z79.4 Active Assessment Cervical stenosis of spine M48.02 Active Problem Cervical stenosis of spine M48.02 Active Problem H/O stroke without residual Z86.73 Active deficits Problem Primary hypersomnia F51.11 Active Medications Medication Code Code Instructions Start End Status Dosage System Date Date Cyanocobalamin [facility] [address]-26 1000 MCG Active 1 tablet Orally Once a day BD Pen Needle [facility] 61882394191 31G X 5 MM Active USE Mini U/F DIRECTED Folic Acid [facility] 37309422252 1 MG Orally Active 1 tablet Once a day Carvedilol [facility] 51583565982 6.25 MG Oral Active TAKE 1 TABLET BY MOUTH TWICE A DAY Nitrostat [facility] 89353858387 0.4 MG Active as Sublingual 3 directed doses within 15 minutes PRN CHEST PAIN Lactobacillus NDC 0 Active not defined Calcitriol [facility] 24268333864 0.5 MCG Orally Active 1 capsule Once a day Thiamine HCl [facility] 82107984476 100 MG Orally Active 1 tablet Once a day Humalog [facility] 10537142149 100 UNIT/ML Active as Subcutaneous directed Lipitor [facility] 96084915023 80 MG Orally Active 1 tablet Once a day Ferrous Sulfate [facility] 62667566975 325 (65 Fe) MG Active TAKE 1 Oral TABLET BY MOUTH TWICE A DAY Cranberry Extract [facility] 10333-06200 Active not defined Bumetanide [facility] 66928484845 1 MG Oral Active TAKE 1 TABLET BY MOUTH TWICE A DAY Clopidogrel [facility] 55373786913 75 MG Orally Active 1 tablet Bisulfate Once a day Tradjenta [facility] 74421881246 5 MG Orally Active 1 tablet Once a day Plavix [facility] 15849938706 75 MG Orally Active 1 tablet Once a day Vitamin D-3 [facility] 64563888145 5000 UNIT Active as Orally directed Tresiba FlexTouch [facility] 57496444960 200 UNIT/ML Active 10 units Subcutaneous daily Senna S [facility] 46740466268 8.6-50 MG Active 1 tablet Orally Once a in the day evening as needed Aspir-Low [facility] 69197989174 81 MG Orally Active 1 tablet Once a day Coreg [facility] 92122017769 6.25 MG Orally Inactive 1 tab BID Metoprolol [facility] 08246166350 50 MG Orally Active 1 tablet Tartrate Twice a day with food Results No Known Results Summary Purpose eClinicalWorks Submission
--- OUTSIDE RECORDS SUMMARY | 2019-01-25 11:15 | XMS REPORT ---
:1940 Author Organization eClinicalWorks Care Team Providers Name Role Phone Orlando John Provider Role Unavailable Allergies No Known Allergies Problems Problem Type Condition Code Onset Dates Condition Status Problem Chronic kidney disease, stage 4 N18.4 Active (severe) Problem 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 knee Problem Hypertensive heart disease without I11.9 Active heart failure Problem 3-vessel coronary artery disease I25.10 Active Problem Proteinuria, unspecified R80.9 Active Problem Coronary artery disease involving I25.110 Active [place] coronary artery of [place] heart with unstable angina pectoris Problem Cervical stenosis (uterine cervix) N88.2 Active Problem Mixed hyperlipidemia E78.2 Active Problem Stented coronary artery Z95.5 Active Problem Pain, joint, knee, right M25.561 Active Problem Primary osteoarthritis of left knee M17.12 Active Problem Adult BMI 36.0-36.9 kg/sq m Z68.36 Active Problem Acute pain of left knee M25.562 Active Problem At risk for falling Z91.81 Active Problem Atherosclerosis of [place] coronary I25.10 Active artery Problem Chronic kidney disease (CKD), stage N18.4 Active IV (severe) Problem Other osteoporosis M81.8 Active Problem custodial current 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 Z79.4 Active Problem Cervical stenosis of spine M48.02 Active Problem H/O stroke without residual Z86.73 Active deficits Problem Type 2 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 Problem Primary hypersomnia F51.11 Active Problem 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 Active classified elsewhere Medications No Known Medications Results No Known Results Summary Purpose PreEmptive Solutionsinicalwikifolio Submission
--- OUTSIDE RECORDS SUMMARY | 2019-01-25 11:15 | XMS REPORT ---
:1940 Author Organization eClinicalWorks Care Team Providers Name Role Phone Orlando John Provider Role Unavailable Allergies No Known Allergies Problems Problem Type Condition Code Onset Dates Condition Status Assessment Stented coronary artery Z95.5 Active Problem Type 2 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 Assessment Coronary artery disease involving I25.110 Active [place] coronary artery of [place] heart with unstable angina pectoris Problem 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 Active classified elsewhere Problem Chronic kidney disease, stage 4 N18.4 Active (severe) Problem 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 knee Problem Hypertensive heart disease without I11.9 Active heart failure Problem 3-vessel coronary artery disease I25.10 Active Problem Coronary artery disease involving I25.110 Active [place] coronary artery of [place] heart with unstable angina pectoris Problem Proteinuria, unspecified R80.9 Active Problem Cervical stenosis (uterine cervix) N88.2 Active Problem Stented coronary artery Z95.5 Active Problem Mixed hyperlipidemia E78.2 Active Problem Pain, joint, knee, right M25.561 Active Problem Primary osteoarthritis of left knee M17.12 Active Problem Adult BMI 36.0-36.9 kg/sq m Z68.36 Active Problem Acute pain of left knee M25.562 Active Problem At risk for falling Z91.81 Active Problem Atherosclerosis of [place] coronary I25.10 Active artery Problem Chronic kidney disease (CKD), stage N18.4 Active IV (severe) Problem Other osteoporosis M81.8 Active Problem [facility] current 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 Z79.4 Active Problem Cervical stenosis of spine M48.02 Active Problem H/O stroke without residual Z86.73 Active deficits Problem Primary hypersomnia F51.11 Active Medications No Known Medications Results No Known Results Summary Purpose eClinicalWorks Submission
--- OUTSIDE RECORDS SUMMARY | 2019-01-25 11:15 | XMS REPORT ---
[...] Problem Coronary artery disease involving I25.110 Active [place] coronary artery of [place] heart with unstable angina pectoris Problem Cervical [...] for falling Z91.81 Active Problem Atherosclerosis of [place] coronary I25.10 Active artery Problem Chronic kidney disease (CKD), stage N18.4 Active IV (severe) Problem Other osteoporosis M81.8 Active Problem [facility] current 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 Z79.4 Active Problem Cervical stenosis of spine M48.02 Active Problem H/O stroke without residual Z86.73 Active deficits Problem Type 2 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 Problem Primary hypersomnia F51.11 Active Problem 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 Active classified elsewhere Medications No Known Medications Results No Known Results Summary Purpose NONOinicalCryptmint Submission
--- NOTE | 2019-01-25 12:11 | RAD REPORT ---
EXAM DESCRIPTION: RAD - Chest Single View - 01/25/2019 12:06 pm CLINICAL HISTORY: CHEST PAIN Chest pain. COMPARISON: Chest Single View dated 12/20/2018; Chest Single View dated 11/20/2018; Chest Single View dated 11/10/2018; Chest Single View dated 09/20/2018 FINDINGS: Portable technique limits examination quality. Mild interstitial pulmonary edema seen. The heart is mildly enlarged in size. Deformity of both proxi mal humeri noted related to old fracture. IMPRESSION: Mild CHF.
[2019-01-25 12:20] LABS: Absolute Lymphocytes (CBC) 1.5 K/uL (0.7-4.9); Basophils % 0.9 % (0-1.3); Lymphocytes % 21.5 % (15.3-44.8); RBC Red Blood Cell Count 3.74 M/uL (3.86-4.86)
[2019-01-25 12:22] LABS: Protime INR 0.96
[2019-01-25 12:40] LABS: ALT/SGPT 15 U/L (12-78); AST/SGOT 14 U/L (15-37); Albumin 3.5 g/dL (3.4-5.0); Alkaline Phosphatase 114 U/L (45-117); BUN Blood Urea Nitrogen 78 mg/dL (7-18); Bicarbonate 33 mmol/L (21-32); Bilirubin Direct < 0.1 mg/dL (0-0.2); Bilirubin Total 0.4 mg/dL (0.2-1.0); Glucose Level 179 mg/dL (74-106); Magnesium 2.5 mg/dL (1.8-2.4); NT PRO-BNP 9434 pg/mL (<450); Potassium 3.8 mmol/L (3.5-5.1); Sodium Level 138 mmol/L (136-145); Troponin (Emerg Dept Use Only) 0.27 ng/mL (0.0-0.045)
--- NOTE | 2019-01-25 14:17 | EDPHYS ---
Physician Documentation [facility] Name: Suzan Gonzalez Age: 78 yrs Sex: Female : 1940 Arrival Date: 01/25/2019 Time: 11:06 Bed 18 Private MD: Mu Perryh ED Physician Suraj Barkley HPI: 01/25 11:48 This 78 yrs old Female presents to ER via Wheelchair with complaints of Chest la1 Pain. 11:48 The patient or guardian reports chest pain that is located primarily in the epigastric la1 area, anterior chest wall. Onset: yesterday. The pain does not radiate. Associated signs and symptoms: Pertinent positives: shortness of breath. The chest pain is described as a pressure. Duration: The patient or guardian reports multiple episodes, that have now resolved, approximately 3 episodes since symptom onset. Modifying factors: The symptoms are alleviated by nothing. remaining still, rest, the symptoms are aggravated by walking. Severity of pain: At its worst the pain was mild. Pt reports she has had three episodes of chest pain since yesterday, states she has had five heart surgeries since July and this pain feels similar to the pain that she had previous to her last surgery, states her pain is worse when she ambulates and better when she rests. Historical: - Allergies: 11:25 "every pain narcotic"; iw 11:25 Bactrim; iw 11:25 Benadryl; iw 11:25 Iodine; iw 11:25 Levaquin; iw 11:25 Levofloxacin; iw 11:25 Morphine; iw 11:25 Sulfa (Sulfonamide Antibiotics); iw - Home Meds: 11:25 aspirin 81 mg Oral chew 1 tab once daily [Active]; bumetanide 1 mg Oral tab 2 times per iw day [Active]; calcitriol 0.5 mcg Oral cap once daily [Active]; carvedilol 6.25 mg Oral tab 2 times per day [Active]; cranberry with Vitamin C [Active]; ferrous sulfate 325 mg (65 mg iron) Oral TbEC twice a day [Active]; ferrous sulfate 325 mg (65 mg iron) Oral tab twice a day [Active]; folic acid 1 mg Oral tab once daily [Active]; Plavix 75 mg Oral tab 1 tab once daily [Active]; ranolazine Oral 2 times per day [Active]; Tradjenta 5 mg Oral tab 1 tab once daily [Active]; Vitamin D3 4,000 unit Oral cap daily [Active]; - PMHx: 11:25 angio; CHF; Diabetes - IDDM; Hypertension; kidney failure; Myocardial infarction; iw Osteoporosis; POOR CIRCULATION; Renal Disease; TIA; - PSHx: 11:25 Heart stents; iw - Ebola Screening: : Patient negative for fever greater than or equal to 101.5 degrees Fahrenheit, and additional compatible Ebola Virus Disease symptoms Patient denies exposure to infectious person Patient denies travel to an Ebola-affected area in the 21 days before illness onset No symptoms or risks identified at this time. ROS: 11:53 Constitutional: Negative for fever, chills, and weight loss, Eyes: Negative for injury, la1 pain, redness, and discharge, Neck: Negative for injury, pain, and swelling, Respiratory: Negative for shortness of breath, cough, wheezing, and pleuritic chest pain, Abdomen/GI: Negative for abdominal pain, nausea, vomiting, diarrhea, and constipation, Back: Negative for injury and pain, MS/Extremity: Negative for injury and deformity, Skin: Negative for injury, rash, and discoloration, Neuro: Negative for headache, weakness, numbness, tingling, and seizure. 11:53 Cardiovascular: Positive for chest pain. Exam: 11:53 Constitutional: This is a well developed, well nourished patient who is awake, alert, la1 and in no acute distress. Eyes: Pupils equal round and reactive to light, extra-ocular motions intact. Periorbital areas with no swelling, redness, or edema. ENT: Nares patent. No nasal discharge, no septal abnormalities noted. Tympanic membranes are normal and external auditory canals are clear. Oropharynx with no redness, swelling, or masses, exudates, or evidence of obstruction, uvula midline. Mucous membranes moist. Neck: Trachea midline, no thyromegaly or masses palpated, and no cervical lymphadenopathy. Supple, full range of motion without nuchal rigidity, or vertebral point tenderness. No Meningismus. Chest/axilla: Normal chest wall appearance and motion. Nontender with no deformity. No lesions are appreciated. Cardiovascular: Regular rate and rhythm with a normal S1 and S2. No gallops, murmurs, or rubs. Normal PMI, no JVD. No pulse deficits. Respiratory: Lungs have equal breath sounds bilaterally, clear to auscultation No rales, rhonchi or wheezes noted. No increased work of breathing, no retractions or nasal flaring. Abdomen/GI: Soft, non-tender, with normal bowel sounds. No distension or tympany. No guarding or rebound. No evidence of tenderness throughout. Neuro: Awake and alert, GCS 15, oriented to person, place, time, and situation. Cranial nerves II-XII grossly intact. Motor strength 5/5 in all extremities. Sensory grossly intact. Cerebellar exam normal. Normal gait. Vital Signs: 11:25 BP 129 / 57; Pulse 69; Resp 16; Temp 98.0; Pulse Ox 100% on R/A; iw 12:22 BP 167 / 54; Pulse 55; Resp 18; Pulse Ox 99% on R/A; Pain 0/10; em 13:43 BP 152 / 64; Pulse 64; Resp 18; Pulse Ox 99% on R/A; em 14:30 BP 150 / 58; Pulse 65; Resp 18; Pulse Ox 99% on R/A; Pain 0/10; em 15:30 BP 119 / 53; Pulse 64; Resp 18; Pulse Ox 99% on R/A; Pain 0/10; em 17:36 BP 132 / 52; Pulse 68; Resp 18; Pulse Ox 99% on R/A; Pain 0/10; em MDM: 11:27 Patient medically screened. la1 14:04 HEART Score: History: Moderately Suspicious (1), ECG: Non specific repolarization la1 disturbance / LBTB / PM (1), Age: > or = 65 years (2), Risk Factors: 1 or 2 risk factors (1), Troponin: > or = 3 x Normal Limit (2), Total Score = 5. Data reviewed: vital signs, nurses notes, lab test result(s), EKG, radiologic studies, I have discussed the patient's presentation/case with the attending Emergency Department Physician; and as a result, I will admit patient. Physician consultation: was called at 13:55, was contacted at 13:55, regarding admission, to the telemetry unit. and will see patient in inpatient room. ED course: Pt Troponin elevated at 0.27 which is lower than last few visits but pt is now having chest pain. Discussed case with Dr. Rothman who will consult on pt. 01/25 11:28 Order name: Basic Metabolic Panel; Complete Time: 12:41 la1 01/25 11:28 Order name: CBC with Diff; Complete Time: 12:41 la1 01/25 11:28 Order name: LFT's; Complete Time: 12:41 la1 01/25 11:28 Order name: Magnesium; Complete Time: 12:41 la1 01/25 11:28 Order name: NT PRO-BNP; Complete Time: 12:41 la1 01/25 11:28 Order name: PT-INR; Complete Time: 12:41 la1 01/25 11:28 Order name: Troponin (emerg Dept Use Only); Complete Time: 12:41 la1 01/25 11:28 Order name: XRAY Chest (1 view); Complete Time: 12:41 la1 01/25 11:28 Order name: EKG; Complete Time: 11:29 la1 01/25 11:28 Order name: Cardiac monitoring; Complete Time: 11:44 la1 01/25 11:28 Order name: EKG - Nurse/Tech; Complete Time: 11:44 la1 01/25 11:28 Order name: IV Saline Lock; Complete Time: 12:16 la1 01/25 13:59 Order name: Troponin (emerg Dept Use Only); Complete Time: 15:05 la1 01/25 14:23 Order name: Diet Ada 1800 Danilo; Complete Time: 14:24 em 01/25 11:28 Order name: Labs collected and sent; Complete Time: 12:16 la1 01/25 11:28 Order name: O2 Per Protocol; Complete Time: 11:44 la1 01/25 11:28 Order name: O2 Sat Monitoring; Complete Time: 11:44 la1 EC:13 Rate is 81 beats/min. Rhythm is regular. QRS [place] is Normal. Left axis deviation noted. la1 [place] interval is normal. QT interval is prolonged. T waves are Inverted in leads V5, V6. Clinical impression: Abnormal EKG without significant change. Administered Medications: No medications were administered Disposition: 01/26 07:23 Co-signature as Attending Physician, Suraj Barkley MD I agree with the assessment and kdr plan of care. Disposition: 01/25/19 16:49 Transfer ordered to [facility]. Diagnosis are Chest pain, unspecified, Elevated Troponin. - Reason for transfer: Higher level of care. - Accepting physician is Dr. Gonzalez. - Condition is Stable. - Problem is new. - Symptoms have improved. Signatures: Dispatcher [employer] Suraj Vasquez MD MD kdr Davie, Rob, EXPLORATION GEOLOGIST EXPLORATION GEOLOGIST em Nissa Hobson, SOLITARIO RN iw Jose Leon, AWNING CRAFTSPERSON-C AWNING CRAFTSPERSON-Cla1 Talia Alonzo Corrections: (The following items were deleted from the chart) 01/25 14:19 14:16 Hospitalization Ordered by Garry Arellano for Observation. Preliminary diagnosis eb is Chest pain, unspecified; Elevated Troponin. Bed requested for Telemetry/MedSurg (Inpatient). Status is Observation. Condition is Stable. Problem is new. Symptoms have improved. UTI on Admission? No. la1 16:48 14:19 01/25/2019 14:16 Hospitalization Ordered by Garry Rodas for Observation. la1 Preliminary diagnosis is Chest pain, unspecified; Elevated Troponin. Bed requested for Telemetry/MedSurg (Inpatient). Status is Observation. Condition is Stable. Problem is new. Symptoms have improved. UTI on Admission? No. eb 18:29 16:49 01/25/2019 16:49 Transfer ordered to [facility]. Diagnosis is em Chest pain, unspecified; Elevated Troponin. Reason for transfer: Higher level of care. Accepting physician is Dr. Gonzalez. Condition is Stable. Problem is new. Symptoms have improved. la1
--- NOTE | 2019-01-25 14:17 | ER ---
Nurse's Notes [facility] Name: Suzan Gonzalez Age: 78 yrs Sex: Female : 1940 Arrival Date: 01/25/2019 Time: 11:06 Bed 18 Private MD: John Perry Diagnosis: Chest pain, unspecified;Elevated Troponin Presentation: 01/25 11:22 Presenting complaint: Patient states: chest pain yesterday X 30 minutes, then again in iw the middle of night X 1 hour, starts as indigestion then moved up to chest, similar to previous DC but not as bad. Transition of care: patient was not received from another setting of care. Onset of symptoms was January 25, 2019. Risk Assessment: Do you want to hurt yourself or someone else? Patient reports no desire to harm self or others. Initial Sepsis Screen: Does the patient meet any 2 criteria? No. Patient's initial sepsis screen is negative. Does the patient have a suspected source of infection? No. Patient's initial sepsis screen is negative. Care prior to arrival: None. 11:22 Method Of Arrival: Wheelchair iw 11:22 Acuity: SERGIO 2 iw Historical: - Allergies: 11:25 "every pain narcotic"; iw 11:25 Bactrim; iw 11:25 Benadryl; iw 11:25 Iodine; iw 11:25 Levaquin; iw 11:25 Levofloxacin; iw 11:25 Morphine; iw 11:25 Sulfa (Sulfonamide Antibiotics); iw - Home Meds: 11:25 aspirin 81 mg Oral chew 1 tab once daily [Active]; bumetanide 1 mg Oral tab 2 times per iw day [Active]; calcitriol 0.5 mcg Oral cap once daily [Active]; carvedilol 6.25 mg Oral tab 2 times per day [Active]; cranberry with Vitamin C [Active]; ferrous sulfate 325 mg (65 mg iron) Oral TbEC twice a day [Active]; ferrous sulfate 325 mg (65 mg iron) Oral tab twice a day [Active]; folic acid 1 mg Oral tab once daily [Active]; Plavix 75 mg Oral tab 1 tab once daily [Active]; ranolazine Oral 2 times per day [Active]; Tradjenta 5 mg Oral tab 1 tab once daily [Active]; Vitamin D3 4,000 unit Oral cap daily [Active]; - PMHx: 11:25 angio; CHF; Diabetes - IDDM; Hypertension; kidney failure; Myocardial infarction; iw Osteoporosis; POOR CIRCULATION; Renal Disease; TIA; - PSHx: 11:25 Heart stents; iw - Ebola Screening: : Patient negative for fever greater than or equal to 101.5 degrees Fahrenheit, and additional compatible Ebola Virus Disease symptoms Patient denies exposure to infectious person Patient denies travel to an Ebola-affected area in the 21 days before illness onset No symptoms or risks identified at this time. Screenin:00 Abuse screen: Denies threats or abuse. Nutritional screening: No deficits noted. em Tuberculosis screening: No symptoms or risk factors identified. Fall Risk None identified. Assessment: 12:00 General: Appears in no apparent distress. comfortable, well groomed, well developed, em well nourished, Behavior is calm, cooperative, appropriate for age. Pain: Complains of pain in chest Pain does not radiate. Pain began 0200 this morning. Neuro: Level of Consciousness is awake, alert, obeys commands, Oriented to person, place, time, situation, Appropriate for age. Cardiovascular: Heart tones S1 S2 present Capillary refill < 3 seconds Patient's skin is warm and dry. Rhythm is sinus rhythm Chest pain described as chest pressure. Respiratory: Airway is patent Respiratory effort is even, unlabored, Respiratory pattern is regular, symmetrical, Denies cough. GI: Patient currently denies nausea, vomiting. Derm: Skin is intact, is thin, Skin is pink, warm \\T\\ dry. Musculoskeletal: Capillary refill < 3 seconds, Range of motion: intact in all extremities. 13:30 Reassessment: I agree with the assessment made by JASBIR Rivas. 13:32 Reassessment: Patient appears in no apparent distress at this time. Patient and/or em family updated on plan of care and expected duration. Pain level reassessed. Patient is alert, oriented x 3, equal unlabored respirations, skin warm/dry/pink. 14:50 Reassessment: Patient appears in no apparent distress at this time. Patient and/or em family updated on plan of care and expected duration. Pain level reassessed. Patient is alert, oriented x 3, equal unlabored respirations, skin warm/dry/pink. lunch tray given. 15:29 Reassessment: Patient appears in no apparent distress at this time. Patient and/or em family updated on plan of care and expected duration. Pain level reassessed. Patient is alert, oriented x 3, equal unlabored respirations, skin warm/dry/pink. 15:31 Reassessment: Patient appears in no apparent distress at this time. no orders at this em time, laundry housekeeper notified. 15:45 Reassessment: Dr. Rothman at bedside. em 16:02 Reassessment: Hospitalist at bedside. em 16:30 Reassessment: Patient appears in no apparent distress at this time. Patient and/or em family updated on plan of care and expected duration. Pain level reassessed. Patient is alert, oriented x 3, equal unlabored respirations, skin warm/dry/pink. Patient denies pain at this time. 17:49 Reassessment: Patient appears in no apparent distress at this time. Patient and/or em family updated on plan of care and expected duration. Pain level reassessed. Patient is alert, oriented x 3, equal unlabored respirations, skin warm/dry/pink. [facility] Patient denies pain at this time. 18:22 Reassessment: report given to EMS. em Vital Signs: 11:25 BP 129 / 57; Pulse 69; Resp 16; Temp 98.0; Pulse Ox 100% on R/A; iw 12:22 BP 167 / 54; Pulse 55; Resp 18; Pulse Ox 99% on R/A; Pain 0/10; em 13:43 BP 152 / 64; Pulse 64; Resp 18; Pulse Ox 99% on R/A; em 14:30 BP 150 / 58; Pulse 65; Resp 18; Pulse Ox 99% on R/A; Pain 0/10; em 15:30 BP 119 / 53; Pulse 64; Resp 18; Pulse Ox 99% on R/A; Pain 0/10; em 17:36 BP 132 / 52; Pulse 68; Resp 18; Pulse Ox 99% on R/A; Pain 0/10; em ED Course: 11:06 Patient arrived in ED. as 11:06 Josie Perry MD is Private Physician. as 11:06 John Perry DO is Private Physician. as 11:24 Triage completed. iw 11:27 [facility] Leon [facility]-C [facility] la1 11:27 Suraj Barkley MD is Attending Physician. la1 11:44 Rob Broderick LVN is Primary Nurse. em 12:00 Patient has correct armband on for positive identification. Allergy band placed. Bed in em low position. Call light in reach. Side rails up X2. Adult w/ patient. bank courier on. Pulse ox on. NIBP on. 12:00 Arm band placed on. em 12:00 Patient maintains SpO2 saturation greater than 95% on room air. em 12:01 EKG done, by imaging tech. reviewed by Suraj Barkley MD. tc 12:06 XRAY Chest (1 view) In Process Unspecified. EDMS 14:15 Garry Arellano is Hospitalizing Provider. la1 16:29 initiated a transfer with Sadie from the [facility] Transfer [place]. eb 16:[address] Belcher the [place] maintenance worker transfer station operator for [facility] with Jose FRANCO for eb patient transfer consultation. 16:51 administrative approval given by Sadie Yadav/ Pt has been accepted to [facility] eb 18 looney A bed 10/ Дмитрий Diaz has accepted the patient in transfer/ report to be called to [phone]. 18:22 No provider procedures requiring assistance completed. Patient transferred, IV remains em in place. Administered Medications: No medications were administered Outcome: 14:16 Decision to Hospitalize by Provider. la1 16:49 ER care complete, transfer ordered by MD. la1 18:22 Transferred by ground EMS to [facility], Transfer form completed. em X-rays sent w/ patient. 18:22 Condition: good 18:22 Instructed on the need for transfer, Demonstrated understanding of instructions. 18:29 Patient left the ED. em Signatures: Dispatcher [employer] EDMS Agapito Daniel, RN SOLITARIO Rob Broderick LVN LVN em Sandra Barton Irene, RN RN Karma Ramirez, spot washer EKG Ttc Jose Leon FNP-C METAL MOULDER'S ASSISTANT-[facility] Talia Alonzo eb
--- NOTE | 2019-01-25 15:32 | EKG ---
Test Date: 2019-01-25 Test Time: 11:32:36 Collection Administrator: CELINA MEASUREMENT RESULTS: Intervals: Rate: 69 VT: 182 QRSD: 102 QT: 452 QTc: 484 Cardinal: P: 73 VT: 182 QRS: 71 T: -47 INTERPRETIVE STATEMENTS: Normal sinus rhythm T wave abnormality, consider lateral ischemia Prolonged QT Abnormal ECG Compared to ECG 12/20/2018 15:21:44 T-wave abnormality now present Possible ischemia now present Prolonged QT interval now present ST (T wave) deviation no longer present Electronically Signed On 01-25-19 15:31:51 EXECUTIVE WELLNESS PROGRAMS DIRECTOR by Solomon Rothman
[2019-01-25 20:15] VITALS: TEMP 98
[2019-01-25 20:17] VITALS: O2SAT 99
[2019-01-25 20:23] VITALS: BP 132/52
--- NOTE | 2019-01-25 21:38 | CON ---
History Of Present Illness: Ms. Gonzalez is 78. She has a history of coronary heart disease. We di d a cardiac cath on her in September of this year, found severe 3-vessel disease, left main disease, sen t her for bypass surgery, but that was not done because of her comorbidities, her [employer] s tatus, inability to tolerate heparin, so stents were done, I believe, a total of 5 stents were placed at that time including a left main stent. It was done with an Impella pump. She did well for a few months, and in December, developed unstable angina and again underwent another stent. Apparently, i t was an in-stent stenosis that was treated with a balloon. She did well until just very recently wh en she started to have the same pressure with exertion, tightness in her chest, and minimal exertion would cause it. None has occurred at rest so far. She is not having chest pain now. Every spell of chest pain has been relieved with either rest or nitroglycerin. The patient has underlying diabetes , dyslipidemia, hypertension, renal insufficiency. Today's creatinine is 3.0. Medications: The patient's outpatient medications have been: 1.Plavix. 2.Folic acid. 3.Ranolazine. 4.Tradjenta. 5.Vitamin D3. 6.Aspirin. 7.Bumex. 8.Calcitriol. 9.Carvedilol. 10.Iron sulfate. Physical Examination: General: The patient is alert, oriented, pleasant. She is not in any distress right now. Abdomen: Soft. Extremities: Mild edema. Distal pulses are barely palpable. Heart: Within normal limits. Lungs: Clear. Laboratory Data: Reveals a troponin level of 0.28. Her creatinine is 3.0, hemoglobin 11.8, hematocr it 35, white blood cell count 7.1, platelet count 256,000. Assessment And Plan: The patient has severe renal insufficiency. She is allergic to iodine and she is actually not allergic to heparin, that is a mistake. We are going to treat her with Lovenox, aspi rin, and Plavix, and plan to do a cardiac cath on Monday to see if there is some way we can fix thing s up. Patient prefers to stay here rather than go back up to [facility] in [place] where her other p rocedures have been done. Thank you very much for your kind referral of Ms. Gonzalez. I will follow her with you. SABI/LIO Voice ID: [id number] Report ID: [id number]
== END 2019-01-25 18:29 | disposition short-term general hospital (02) ==
LOC: ER 11:05
DX: R79.89 Other specified abnormal findings of blood chemistry (principal); N19 Unspecified kidney failure; I10 Essential (primary) hypertension; E11.9 Type 2 diabetes mellitus without complications; I50.9 Heart failure, unspecified; Z79.01 Long term (current) use of anticoagulants; Z79.82 Long term (current) use of aspirin; Z88.1 Allergy status to other antibiotic agents; Z88.2 Allergy status to sulfonamides; Z88.5 Allergy status to narcotic agent; Z95.818 Presence of other cardiac implants and grafts
CPT/HCPCS: 36415; 71045; 80048; 80076; 83735; 83880; 84484; 85025; 85610; 93005; 99285

== ENCOUNTER 2019-03-19 10:51 | Emergency (ER) | payer OTHER ==
--- OUTSIDE RECORDS SUMMARY | 2019-03-19 11:21 | XMS REPORT ---
:1940 [facility] Address [address] [place] [address] [address] [place] [address] Care Team Providers Name Role Phone SEGUNDO COOK Unavailable Unavailable DARION AUGUSTINE Unavailable Unavailable SISSY CORTES Unavailable Unavailable KHANG STAURT Unavailable Unavailable Payers Payer Name Policy Type [...] Results Atomic Results Result Comments POCT-GLUCOSE METER 2019-01-30 09:17:00 Test Item Value Reference Range Comments POC-GLUCOSE METER (BEAKER) 161 mg/dL 70-110 : TESTED AT [address] (test veis=8466) [place], [address]: Grease Remover/Accounting Auditor [id number] for DANIELE SABA BASIC METABOLIC [id number] 07:10:00 Test Item Value Reference Range Comments SODIUM (BEAKER) (test 141 meq/L 136-145 ztre=379) POTASSIUM (BEAKER) (test 3.5 meq/L 3.5-5.1 kauj=094) CHLORIDE (BEAKER) (test 104 meq/L 98-107 icjt=867) CO2 (BEAKER) (test 30 meq/L 22-29 uewb=568) BLOOD UREA NITROGEN 76 mg/dL 7-21 (BEAKER) (test taoa=861) CREATININE (BEAKER) (test 2.72 mg/dL 0.57-1.25 vjyv=787) GLUCOSE RANDOM (BEAKER) 147 mg/dL 70-105 (test ovwn=457) CALCIUM (BEAKER) (test 8.3 mg/dL 8.4-10.2 nhxt=981) EGFR (BEAKER) (test 17 mL/min/1.73 sq m ESTIMATED GFR IS NOT kzrb=8845) ACCURATE CREATININE CLEARANCE IN PREDICTING GLOMERULAR FILTRATION RATE. ESTIMATED GFR IS NOT APPLICABLE FOR DIALYSIS PATIENTS. URIC [id number] 07:07:00 Test Item Value Reference Range Comments URIC ACID (BEAKER) (test klin=255) 9.9 mg/dL 2.6-7.2 [id number] 07:07:00 Test Item Value Reference Range Comments MAGNESIUM (BEAKER) (test awvt=215) 2.3 mg/dL 1.6-2.6 [id number] 07:07:00 Test Item Value Reference Range Comments PHOSPHORUS (BEAKER) (test dkgj=043) 3.3 mg/dL 2.3-4.7 B-TYPE NATRIURETIC FACTOR (BNP)2019-01-30 06:44:00 Test Item Value Reference Range Comments B-TYPE NATRIURETIC PEPTIDE (BEAKER) (test 365 pg/mL 0-100 uxdm=021) CALCIUM, [id number] 06:31:00 Test Item Value Reference Range Comments CALCIUM IONIZED (BEAKER) (test qarw=960) 1.08 mmol/L 1.12-1.27 PH, BLOOD (BEAKER) (test yjww=0680) 7.41 CBC W/PLT COUNT & AUTO [id number] 06:17:00 Test Item Value Reference Range Comments WHITE BLOOD CELL COUNT (BEAKER) (test ycxb=404) 7.6 K/ L 3.5-10.5 RED BLOOD CELL COUNT (BEAKER) (test ipnp=170) 3.23 M/ L 3.93-5.22 HEMOGLOBIN (BEAKER) (test kqwt=595) 9.9 GM/DL 11.2-15.7 HEMATOCRIT (BEAKER) (test lnxg=471) 31.1 % 34.1-44.9 MEAN CORPUSCULAR VOLUME (BEAKER) (test duxx=926) 96.3 fL 79.4-94.8 MEAN CORPUSCULAR HEMOGLOBIN (BEAKER) (test 30.7 pg 25.6-32.2 knsh=091) MEAN CORPUSCULAR HEMOGLOBIN CONC (BEAKER) (test 31.8 GM/DL 32.2-35.5 gggz=365) RED CELL DISTRIBUTION WIDTH (BEAKER) (test 13.4 % 11.7-14.4 ddxx=898) PLATELET COUNT (BEAKER) (test jnqn=379) 190 K/CU MM 150-450 MEAN PLATELET VOLUME (BEAKER) (test puir=939) 10.3 fL 9.4-12.3 NUCLEATED RED BLOOD CELLS (BEAKER) (test 0 /100 WBC 0-0 hfhf=960) NEUTROPHILS RELATIVE PERCENT (BEAKER) (test 63 % skrg=477) LYMPHOCYTES RELATIVE PERCENT (BEAKER) (test 23 % gfsl=290) MONOCYTES RELATIVE PERCENT (BEAKER) (test 11 % hoqd=510) EOSINOPHILS RELATIVE PERCENT (BEAKER) (test 3 % psqi=473) BASOPHILS RELATIVE PERCENT (BEAKER) (test 1 % glbg=929) NEUTROPHILS ABSOLUTE COUNT (BEAKER) (test 4.74 K/ L 1.56-6.13 ikfa=435) LYMPHOCYTES ABSOLUTE COUNT (BEAKER) (test 1.75 K/ L 1.18-3.74 hcjl=129) MONOCYTES ABSOLUTE COUNT (BEAKER) (test 0.80 K/ L 0.24-0.36 vnyd=569) EOSINOPHILS ABSOLUTE COUNT (BEAKER) (test 0.23 K/ L 0.04-0.36 uwoc=687) BASOPHILS ABSOLUTE COUNT (BEAKER) (test 0.04 K/ L 0.01-0.08 ruaz=124) IMMATURE GRANULOCYTES-RELATIVE PERCENT (BEAKER) 0 % 0-1 (test azfg=9449) POCT-GLUCOSE [id number] 21:20:00 Test Item Value Reference Range Comments POC-GLUCOSE METER (BEAKER) 140 mg/dL 70-110 : TESTED AT [facility] [address] (test nsbh=7663) [facility], [address]: Grease Remover/Accounting Auditor [id number] for Fatmata Maguire CREATININE, RANDOM [id number] 19:07:00 Test Item Value Reference Range Comments CREATININE URINE (BEAKER) (test qmea=997) 101.3 mg/dL Reference Range: No NormalsPROTEIN, RANDOM [id number] 19:07:00 Test Item Value Reference Range Comments PROTEIN, URINE (BEAKER) (test wvkj=3896) 24 mg/dL 0-14 SODIUM, RANDOM [id number] 19:07:00 Test Item Value Reference Range Comments SODIUM URINE (BEAKER) (test ocrv=243) 27 meq/L Reference Range: No NormalsPOCT-GLUCOSE [id number] 17:13:00 Test Item Value Reference Range Comments POC-GLUCOSE METER (BEAKER) 172 mg/dL 70-110 : TESTED AT [facility] [address] [facility] (test ktyg=6506) [facility], [address]: Grease Remover/Accounting Auditor [phone]=[id number] for JOHNATHAN EDWARDS URINALYSIS W/ [id number] 15:46:00 Test Item Value Reference Range Comments COLOR (BEAKER) (test ixyj=771) Yellow CLARITY (BEAKER) (test recj=488) Clear SPECIFIC GRAVITY UA (BEAKER) (test lker=301) 1.014 1.001-1.035 PH UA (BEAKER) (test ulqk=782) 5.5 5.0-8.0 PROTEIN UA (BEAKER) (test xhyd=323) 20 mg/dL Negative GLUCOSE UA (BEAKER) (test dgdb=171) 300 mg/dL Negative KETONES UA (BEAKER) (test skrv=532) Negative Negative BILIRUBIN UA (BEAKER) (test jfpn=154) Negative Negative BLOOD UA (BEAKER) (test gyqj=523) Negative Negative NITRITE UA (BEAKER) (test pgeh=148) Negative Negative LEUKOCYTE ESTERASE UA (BEAKER) (test cxkd=786) Negative Negative UROBILINOGEN UA (BEAKER) (test jlwx=405) 0.2 mg/dL 0.2-1.0 RBC UA (BEAKER) (test frof=554) < /HPF WBC UA (BEAKER) (test orka=188) < /HPF SOURCE(BEAKER) (test srgj=1384) BASIC METABOLIC [id number] 13:57:00 Test Item Value Reference Range Comments SODIUM (BEAKER) (test 136 meq/L 136-145 bkvt=573) POTASSIUM (BEAKER) (test 3.5 meq/L 3.5-5.1 qahl=943) CHLORIDE (BEAKER) (test 97 meq/L 98-107 fzkj=120) CO2 (BEAKER) (test 30 meq/L 22-29 rwgt=695) BLOOD UREA NITROGEN 82 mg/dL 7-21 (BEAKER) (test nqng=169) CREATININE (BEAKER) (test 3.06 mg/dL 0.57-1.25 lolx=708) GLUCOSE RANDOM (BEAKER) 291 mg/dL 70-105 (test qcrn=391) CALCIUM (BEAKER) (test 8.6 mg/dL 8.4-10.2 yblm=115) EGFR (BEAKER) (test 15 mL/min/1.73 sq m ESTIMATED GFR IS NOT hemy=1271) ACCURATE CREATININE CLEARANCE IN PREDICTING GLOMERULAR FILTRATION RATE. ESTIMATED GFR IS NOT APPLICABLE FOR DIALYSIS PATIENTS. [id number] 13:56:00 Test Item Value Reference Range Comments PHOSPHORUS (BEAKER) (test ofbl=115) 2.6 mg/dL 2.3-4.7 [id number] 13:56:00 Test Item Value Reference Range Comments MAGNESIUM (BEAKER) (test hglo=340) 2.4 mg/dL 1.6-2.6 RAD, CHEST, 1 VIEW, NON [id number] 13:55:00Reason for exam:->Fluid statusShould this be performed at the bedside?->YesFINAL REPORT AP chest Comparison exam: 01/25/2019 History provided: Fluid status Heart size magnified by projection. Lungs currently grossly clear, and vascularity normal. Chronicdeformity of the right humeral neck. Signed: Rufino Malave MDReport Verified Date/Time: 01/29/2019 13:55:37 Reading Location: [facility] Diagnostic Imaging Reading Room - [facility] 1.310.12 POCT-GLUCOSE [id number] 11: 49:00 Test Item Value Reference Range Comments POC-GLUCOSE METER (BEAKER) 273 mg/dL 70-110 : TESTED AT [facility] [address] [place] [address] (test xhox=2682) [facility], [address]: Grease Remover/Accounting Auditor [id number] for Tatyana Price C. DIFFICILE GDH [id number] 11:07:00 Test Item Value Reference Range Comments CDT TOXIN (test Negative Negative wbmc=[id number]) CDT GDH ANTIGEN (test Positive Negative C. difficile present but toxin xnrm=[id number]) not detected. Indicates colonization with non-toxigenic strain [...] performance was done by the [facility] Microbiology Lab prior to clinical use.POCT-GLUCOSE [id number] 07:57:00 Test Item Value Reference Range Comments POC-GLUCOSE METER (BEAKER) 227 mg/dL 70-110 : TESTED AT [facility] [address] [facility] (test zjnx=1123) [facility], [address]: Grease Remover/Accounting Auditor [id number] for Tatyana Price CBC (HEMOGRAM ONLY)2019-01-29 05:39:00 Test Item Value Reference Range Comments WHITE BLOOD CELL COUNT (BEAKER) (test slpn=164) 9.0 K/ L 3.5-10.5 RED BLOOD CELL COUNT (BEAKER) (test yxgf=969) 3.30 M/ L 3.93-5.22 HEMOGLOBIN (BEAKER) (test xzjn=890) 10.2 GM/DL 11.2-15.7 HEMATOCRIT (BEAKER) (test vgou=110) 31.5 % 34.1-44.9 MEAN CORPUSCULAR VOLUME (BEAKER) (test fbhf=775) 95.5 fL 79.4-94.8 MEAN CORPUSCULAR HEMOGLOBIN (BEAKER) (test 30.9 pg 25.6-32.2 xqse=811) MEAN CORPUSCULAR HEMOGLOBIN CONC (BEAKER) (test 32.4 GM/DL 32.2-35.5 spxd=688) RED CELL DISTRIBUTION WIDTH (BEAKER) (test 13.5 % 11.7-14.4 qami=104) PLATELET COUNT (BEAKER) (test ydng=189) 196 K/CU MM 150-450 MEAN PLATELET VOLUME (BEAKER) (test udew=533) 10.3 fL 9.4-12.3 NUCLEATED RED BLOOD CELLS (BEAKER) (test 0 /100 WBC 0-0 nwca=726) POCT-GLUCOSE [id number] 22:07:00 Test Item Value Reference Range Comments POC-GLUCOSE METER (BEAKER) 229 mg/dL 70-110 : TESTED AT [address] (test kliq=0021) [facility], [address]: Grease Remover/Accounting Auditor [id number] for SELINA SALAZAR OCCULT BLOOD, [id number] 22:07:00 Test Item Value Reference Range Comments FECAL OCCULT BLOOD (BEAKER) (test xpyb=662) Negative Negative POCT-GLUCOSE [id number] 12:00:00 Test Item Value Reference Range Comments POC-GLUCOSE METER (BEAKER) 208 mg/dL 70-110 : Notified RN/MD: TESTED AT (test fitv=6098) [address], [address]: Grease Remover/Accounting Auditor [id number] for Veena Lam [id number] 09:10:00 Test Item Value Reference Range Comments PARTIAL THROMBOPLASTIN TIME (BEAKER) (test 77.4 seconds 22.5-36.0 nwmw=852) POCT-GLUCOSE [id number] 08:40:00 Test Item Value Reference Range Comments POC-GLUCOSE METER (BEAKER) 153 mg/dL 70-110 : TESTED AT [address] (test hrqu=8291) [facility], [address]: Grease Remover/Accounting Auditor [id number] for JANETH INGRAM BASIC METABOLIC [id number] 05:15:00 Test Item Value Reference Range Comments SODIUM (BEAKER) (test 137 meq/L 136-145 xukf=259) POTASSIUM (BEAKER) (test 3.5 meq/L 3.5-5.1 dpbv=572) CHLORIDE (BEAKER) (test 96 meq/L 98-107 ncit=350) CO2 (BEAKER) (test 30 meq/L 22-29 zklm=092) BLOOD UREA NITROGEN 84 mg/dL 7-21 (BEAKER) (test cvhr=530) CREATININE (BEAKER) (test 3.26 mg/dL 0.57-1.25 pbef=060) GLUCOSE RANDOM (BEAKER) 125 mg/dL 70-105 (test yyor=244) CALCIUM (BEAKER) (test 8.9 mg/dL 8.4-10.2 vyqv=289) EGFR (BEAKER) (test 14 mL/min/1.73 sq m ESTIMATED GFR IS NOT wquo=9926) ACCURATE CREATININE CLEARANCE IN PREDICTING GLOMERULAR FILTRATION RATE. ESTIMATED GFR IS NOT APPLICABLE FOR DIALYSIS PATIENTS. [id number] 05:11:00 Test Item Value Reference Range Comments PARTIAL THROMBOPLASTIN TIME (BEAKER) (test 122.1 seconds 22.5-36.0 uhro=625) CBC (HEMOGRAM ONLY)2019-01-28 04:39:00 Test Item Value Reference Range Comments WHITE BLOOD CELL COUNT (BEAKER) (test kvfw=253) 6.9 K/ L 3.5-10.5 RED BLOOD CELL COUNT (BEAKER) (test fojb=071) 3.53 M/ L 3.93-5.22 HEMOGLOBIN (BEAKER) (test zcve=212) 10.9 GM/DL 11.2-15.7 HEMATOCRIT (BEAKER) (test sbjn=363) 33.4 % 34.1-44.9 MEAN CORPUSCULAR VOLUME (BEAKER) (test woei=004) 94.6 fL 79.4-94.8 MEAN CORPUSCULAR HEMOGLOBIN (BEAKER) (test 30.9 pg 25.6-32.2 lcas=012) MEAN CORPUSCULAR HEMOGLOBIN CONC (BEAKER) (test 32.6 GM/DL 32.2-35.5 cfeo=754) RED CELL DISTRIBUTION WIDTH (BEAKER) (test 13.7 % 11.7-14.4 owcx=126) PLATELET COUNT (BEAKER) (test zvai=547) 209 K/CU MM 150-450 MEAN PLATELET VOLUME (BEAKER) (test rlge=585) 9.8 fL 9.4-12.3 NUCLEATED RED BLOOD CELLS (BEAKER) (test 0 /100 WBC 0-0 qllo=279) POCT-GLUCOSE [id number] 22:29:00 Test Item Value Reference Range Comments POC-GLUCOSE METER (BEAKER) 235 mg/dL 70-110 : TESTED AT [facility] [address] [facility] (test guqr=9807) [facility], [address]: Grease Remover/Accounting Auditor [id number] for HUGH PEREYRA [id number] 21:49:00 Test Item Value Reference Range Comments PARTIAL THROMBOPLASTIN TIME (BEAKER) (test 81.9 seconds 22.5-36.0 oizt=279) POCT-GLUCOSE [id number] 17:50:00 Test Item Value Reference Range Comments POC-GLUCOSE METER (BEAKER) 236 mg/dL 70-110 : TESTED AT [facility] [address] [facility] (test miuu=2141) [facility], [address]: Grease Remover/Accounting Auditor [id number] for INDIO MCCRAY [id number] 16:52:00 Test Item Value Reference Range Comments PROTIME (BEAKER) (test ftbd=204) 13.7 seconds 11.9-14.2 INR (BEAKER) (test obae=360) 1.1 <=5.9 PARTIAL THROMBOPLASTIN TIME (BEAKER) (test 60.7 seconds 22.5-36.0 jljg=358) Effective 07/18/2018: PT Reference Range ChangeNew: 11.9-14.2 Previous: 11.7- 14.7RECOMMENDED COUMADIN/WARFARIN INR THERAPY RANGESSTANDARD DOSE: 2.0-3.0 Includes: PROPHYLAXIS for venous thrombosis, systemic embolization; TREATMENT for venous thrombosis and/or pulmonary embolus.HIGH RISK: Target INR is2.5-3.5 for patients wiht mechanical heart valves.[id number] 13:41:00 Test Item Value Reference Range Comments PROTIME (BEAKER) (test hwoe=166) 14.1 seconds 11.9-14.2 INR (BEAKER) (test uiea=366) 1.2 <=5.9 PARTIAL THROMBOPLASTIN TIME (BEAKER) (test 132.4 seconds 22.5-36.0 cwds=598) Effective 07/18/2018: PT Reference Range ChangeNew: 11.9-14.2 Previous: 11.7- 14.7RECOMMENDED COUMADIN/WARFARIN INR THERAPY RANGESSTANDARD DOSE: 2.0-3.0 Includes: PROPHYLAXIS for venous thrombosis, systemic embolization; TREATMENT for venous thrombosis and/or pulmonary embolus.HIGH RISK: Target INR is2.5-3.5 for patients wiht mechanical heart valves.POCT-GLUCOSE [id number] 12:47:00 Test Item Value Reference Range Comments POC-GLUCOSE METER (BEAKER) 229 mg/dL 70-110 : TESTED AT [facility] [address] [facility] (test pwha=6187) [facility], [address]: Grease Remover/Accounting Auditor [id number] for INDIO MCCRAY POCT-GLUCOSE [id number] 09:42:00 Test Item Value Reference Range Comments POC-GLUCOSE METER (BEAKER) 188 mg/dL 70-110 : TESTED AT [facility] [address] [facility] (test uouk=1230) [facility], [address]: Grease Remover/Accounting Auditor [id number] for INDIO MCCRAY [id number] 06:24:00 Test Item Value Reference Range Comments PARTIAL THROMBOPLASTIN TIME (BEAKER) (test 86.3 seconds 22.5-36.0 rivp=894) BASIC METABOLIC [id number] 04:52:00 Test Item Value Reference Range Comments SODIUM (BEAKER) (test 140 meq/L 136-145 hrjs=331) POTASSIUM (BEAKER) (test 3.6 meq/L 3.5-5.1 gnlv=884) CHLORIDE (BEAKER) (test 99 meq/L 98-107 jjdc=352) CO2 (BEAKER) (test 27 meq/L 22-29 gvkx=205) BLOOD UREA NITROGEN 77 mg/dL 7-21 (BEAKER) (test nlfz=892) CREATININE (BEAKER) (test 3.29 mg/dL 0.57-1.25 wvzl=130) GLUCOSE RANDOM (BEAKER) 135 mg/dL 70-105 (test apdy=971) CALCIUM (BEAKER) (test 9.6 mg/dL 8.4-10.2 imgb=628) EGFR (BEAKER) (test 14 mL/min/1.73 sq m ESTIMATED GFR IS NOT dynl=3209) ACCURATE CREATININE CLEARANCE IN PREDICTING GLOMERULAR FILTRATION RATE. ESTIMATED GFR IS NOT APPLICABLE FOR DIALYSIS PATIENTS. [id number] 04:25:00 Test Item Value Reference Range Comments PARTIAL THROMBOPLASTIN TIME (BEAKER) (test 158.8 seconds 22.5-36.0 mxsb=768) CBC (HEMOGRAM ONLY)2019-01-27 04:07:00 Test Item Value Reference Range Comments WHITE BLOOD CELL COUNT (BEAKER) (test gzup=718) 8.7 K/ L 3.5-10.5 RED BLOOD CELL COUNT (BEAKER) (test arso=657) 4.08 M/ L 3.93-5.22 HEMOGLOBIN (BEAKER) (test njlw=413) 12.4 GM/DL 11.2-15.7 HEMATOCRIT (BEAKER) (test dbtd=268) 39.4 % 34.1-44.9 MEAN CORPUSCULAR VOLUME (BEAKER) (test oryw=016) 96.6 fL 79.4-94.8 MEAN CORPUSCULAR HEMOGLOBIN (BEAKER) (test 30.4 pg 25.6-32.2 jnww=308) MEAN CORPUSCULAR HEMOGLOBIN CONC (BEAKER) (test 31.5 GM/DL 32.2-35.5 axyk=706) RED CELL DISTRIBUTION WIDTH (BEAKER) (test 13.9 % 11.7-14.4 twwn=929) PLATELET COUNT (BEAKER) (test mtbq=307) 227 K/CU MM 150-450 MEAN PLATELET VOLUME (BEAKER) (test kkpw=825) 9.8 fL 9.4-12.3 NUCLEATED RED BLOOD CELLS (BEAKER) (test 0 /100 WBC 0-0 wggu=464) POCT-GLUCOSE [id number] 04:03:00 Test Item Value Reference Range Comments POC-GLUCOSE METER (BEAKER) 123 mg/dL 70-110 : TESTED AT [address] (test lddb=6695) [facility], [address]: Grease Remover/Accounting Auditor [id number] for SLAUGHTER VINAYNATALIE POCT-GLUCOSE [id number] 21:41:00 Test Item Value Reference Range Comments POC-GLUCOSE METER (BEAKER) 293 mg/dL 70-110 : TESTED AT [address] (test gwie=8380) [facility], [address]: Grease Remover/Accounting Auditor [id number] for ANDI SLAUGHTER [id number] 19:17:00 Test Item Value Reference Range Comments PARTIAL THROMBOPLASTIN TIME (BEAKER) (test 27.4 seconds 22.5-36.0 irah=336) Prior to initiating heparinPLATELET [id number] 18:53:00 Test Item Value Reference Range Comments PLATELET COUNT (BEAKER) (test qvsd=140) 249 K/CU MM 150-450 POCT-GLUCOSE [id number] 13:46:00 Test Item Value Reference Range Comments POC-GLUCOSE METER (BEAKER) 246 mg/dL 70-110 : Notified RN/MD: TESTED AT (test ezto=3006) [facility] [address] [facility], [address]: Grease Remover/Accounting Auditor [id number] for Veena Lam POCT-GLUCOSE [id number] 08:33:00 Test Item Value Reference Range Comments POC-GLUCOSE METER (BEAKER) 124 mg/dL 70-110 : Notified RN/MD: TESTED AT (test vhwi=6871) [facility] [address] [facility], [address]: Grease Remover/Accounting Auditor [id number] for Veena Lam TROPONIN [id number] 07:02:00 Test Item Value Reference Range Comments TROPONIN I (BEAKER) (test dxgj=531) 0.27 ng/mL 0.00-0.03 Troponin I (TnI) levels must [...] failure, acidosis, acute neurological disease, and persistent tachyarrhythmia.CBC (HEMOGRAM ONLY)2019-01-26 06:04:00 Test Item Value Reference Range Comments WHITE BLOOD CELL COUNT (BEAKER) (test krmc=144) 7.0 K/ L 3.5-10.5 RED BLOOD CELL COUNT (BEAKER) (test hoox=863) 3.89 M/ L 3.93-5.22 HEMOGLOBIN (BEAKER) (test eycb=989) 12.0 GM/DL 11.2-15.7 HEMATOCRIT (BEAKER) (test nkrj=492) 37.2 % 34.1-44.9 MEAN CORPUSCULAR VOLUME (BEAKER) (test uqxs=818) 95.6 fL 79.4-94.8 MEAN CORPUSCULAR HEMOGLOBIN (BEAKER) (test 30.8 pg 25.6-32.2 txav=235) MEAN CORPUSCULAR HEMOGLOBIN CONC (BEAKER) (test 32.3 GM/DL 32.2-35.5 rnsq=951) RED CELL DISTRIBUTION WIDTH (BEAKER) (test 14.1 % 11.7-14.4 hlgb=908) PLATELET COUNT (BEAKER) (test bjaq=751) 235 K/CU MM 150-450 MEAN PLATELET VOLUME (BEAKER) (test nkex=075) 9.9 fL 9.4-12.3 NUCLEATED RED BLOOD CELLS (BEAKER) (test 0 /100 WBC 0-0 ielh=487) POCT-GLUCOSE [id number] 05:54:00 Test Item Value Reference Range Comments POC-GLUCOSE METER (BEAKER) 94 mg/dL 70-110 : TESTED AT [facility] [address] [facility] (test fcfb=3493) [facility], [address]: Grease Remover/Accounting Auditor [id number] for JEROME NORRIS RAD, CHEST, 1 VIEW, NON [id number] 03:34:00Reason for exam:->chest painShould this be performed at the bedside?->YesFINAL REPORT INDICATION: chest pain COMPARISON: 12/20/2018 TECHNIQUE: Single frontal view of the chest. FINDINGS: Lungs and pleura: No consolidation or pleural effusion. Lungs are mildly hypoinflated. Heart and mediastinum: Normal heart size. Unremarkable mediastinal contours.Osseous structures: No acute abnormality. Chronic deformities of both humeral heads and partially imaged cervical spine fusion hardware.Other: None. IMPRESSION: No acute intrathoracic abnormality. Signed: Yuan Ying [facility] Verified Date/Time: 03:34:50 Electronically signed by: YUAN YING MD on 2018 03:34 AMTROPONIN [id number] 00:11:00 Test Item Value Reference Range Comments TROPONIN I (BEAKER) (test xitb=611) 0.26 ng/mL 0.00-0.03 Troponin I (TnI) levels [...] acute neurological disease, and persistent tachyarrhythmia.COMPREHENSIVE METABOLIC [id number] 00:09:00 Test Item Value Reference Range Comments TOTAL PROTEIN (BEAKER) 6.8 gm/dL 6.0-8.3 Specimen slightly (test bgmz=727) hemolyzed ALBUMIN (BEAKER) (test 3.7 g/dL 3.5-5.0 Specimen slightly uxbr=6288) hemolyzed ALKALINE PHOSPHATASE 99 U/L 40-150 (BEAKER) (test zddp=602) BILIRUBIN TOTAL (BEAKER) 0.3 mg/dL 0.2-1.2 Specimen slightly (test oqen=275) hemolyzed SODIUM (BEAKER) (test 138 meq/L 136-145 lgxd=023) POTASSIUM (BEAKER) (test 4.0 meq/L 3.5-5.1 Specimen slightly ivyl=491) hemolyzed CHLORIDE (BEAKER) (test 98 meq/L 98-107 bcgi=773) CO2 (BEAKER) (test 30 meq/L 22-29 rowz=893) BLOOD UREA NITROGEN 75 mg/dL 7-21 (BEAKER) (test upba=743) CREATININE (BEAKER) (test 3.06 mg/dL 0.57-1.25 Specimen slightly deeg=537) hemolyzed GLUCOSE RANDOM (BEAKER) 197 mg/dL 70-105 (test aewp=115) CALCIUM (BEAKER) (test 9.7 mg/dL 8.4-10.2 kgev=681) AST (SGOT) (BEAKER) (test 15 U/L 5-34 Specimen slightly tjcn=882) hemolyzed ALT (SGPT) (BEAKER) (test 10 U/L 6-55 Specimen slightly uhxo=443) hemolyzed EGFR (BEAKER) (test 15 mL/min/1.73 sq m ESTIMATED GFR IS NOT twud=7809) ACCURATE CREATININE CLEARANCE IN PREDICTING GLOMERULAR FILTRATION RATE. ESTIMATED GFR IS NOT APPLICABLE FOR DIALYSIS PATIENTS. B-TYPE NATRIURETIC FACTOR (BNP)2019-01-25 23:58:00 Test Item Value Reference Range Comments B-TYPE NATRIURETIC PEPTIDE (BEAKER) (test 638 pg/mL 0-100 qdao=021) [id number] 23:56:00 Test Item Value Reference Range Comments MAGNESIUM (BEAKER) (test 2.3 mg/dL 1.6-2.6 Specimen slightly hemolyzed kgnx=510) [id number] 23:53:00 Test Item Value Reference Range Comments PARTIAL THROMBOPLASTIN TIME (BEAKER) (test 20.7 seconds 22.5-36.0 bdtj=703) Prior to initiating heparinPROTHROMBIN TIME/[id number] 23:41:00 Test Item Value Reference Range Comments PROTIME (BEAKER) (test omsy=022) 13.2 seconds 11.9-14.2 INR (BEAKER) (test bzdl=723) 1.1 <=5.9 Effective 07/18/2018: PT Reference Range ChangeNew: 11.9-14.2 Previous: 11.7- 14.7RECOMMENDED COUMADIN/WARFARIN INR THERAPY RANGESSTANDARD DOSE: 2.0-3.0 Includes: PROPHYLAXIS for venous thrombosis, systemic embolization; TREATMENT for venous thrombosis and/or pulmonary embolus.HIGH RISK: Target INR is2.5-3.5 for patients wiht mechanical heart valves.Prior to initiating [id number] 23:41:00 Test Item Value Reference Range Comments PARTIAL THROMBOPLASTIN TIME (BEAKER) (test 22.3 seconds 22.5-36.0 gngl=442) 6 hours after starting heparin infusion and as indicated per sliding scaleCBC W/ PLT COUNT & AUTO [id number] 23:33:00 Test Item Value Reference Range Comments WHITE BLOOD CELL COUNT (BEAKER) (test mfqn=776) 7.6 K/ L 3.5-10.5 RED BLOOD CELL COUNT (BEAKER) (test cefz=266) 3.62 M/ L 3.93-5.22 HEMOGLOBIN (BEAKER) (test gwwm=043) 11.2 GM/DL 11.2-15.7 HEMATOCRIT (BEAKER) (test pecm=350) 34.7 % 34.1-44.9 MEAN CORPUSCULAR VOLUME (BEAKER) (test cepb=218) 95.9 fL 79.4-94.8 MEAN CORPUSCULAR HEMOGLOBIN (BEAKER) (test 30.9 pg 25.6-32.2 labf=865) MEAN CORPUSCULAR HEMOGLOBIN CONC (BEAKER) (test 32.3 GM/DL 32.2-35.5 hfvy=952) RED CELL DISTRIBUTION WIDTH (BEAKER) (test 14.2 % 11.7-14.4 bshs=167) PLATELET COUNT (BEAKER) (test fpxh=289) 240 K/CU MM 150-450 MEAN PLATELET VOLUME (BEAKER) (test rdow=361) 9.9 fL 9.4-12.3 NUCLEATED RED BLOOD CELLS (BEAKER) (test 0 /100 WBC 0-0 fllz=874) NEUTROPHILS RELATIVE PERCENT (BEAKER) (test 59 % ndwt=917) LYMPHOCYTES RELATIVE PERCENT (BEAKER) (test 27 % qnfo=723) MONOCYTES RELATIVE PERCENT (BEAKER) (test 10 % gklk=463) EOSINOPHILS RELATIVE PERCENT (BEAKER) (test 3 % qzto=498) BASOPHILS RELATIVE PERCENT (BEAKER) (test 0 % htlm=906) NEUTROPHILS ABSOLUTE COUNT (BEAKER) (test 4.47 K/ L 1.56-6.13 ptzg=263) LYMPHOCYTES ABSOLUTE COUNT (BEAKER) (test 2.07 K/ L 1.18-3.74 xelw=088) MONOCYTES ABSOLUTE COUNT (BEAKER) (test 0.77 K/ L 0.24-0.36 ylxr=565) EOSINOPHILS ABSOLUTE COUNT (BEAKER) (test 0.24 K/ L 0.04-0.36 nvbt=344) BASOPHILS ABSOLUTE COUNT (BEAKER) (test 0.03 K/ L 0.01-0.08 yuie=690) IMMATURE GRANULOCYTES-RELATIVE PERCENT (BEAKER) 0 % 0-1 (test mmfx=4483) POCT-GLUCOSE [id number] 22:21:00 Test Item Value Reference Range Comments POC-GLUCOSE METER (BEAKER) 210 mg/dL 70-110 : TESTED AT [place] [id number] [facility] (test klxp=4614) [facility], [id number]: Gre[employer]over/Accounting Auditor [phone]=[id number] for JEROME NORRIS POCT-GLUCOSE [id number] 12:57:00 Test Item Value Reference Range Comments POC-GLUCOSE METER (BEAKER) 318 mg/dL 70-110 : TESTED AT [place] [id number] [facility] (test xwub=8527) [facility], [address]: Grease Remover/Accounting Auditor [id number] for LEX RODRIGUEZ POCT-GLUCOSE [id number] 08:08:00 Test Item Value Reference Range Comments POC-GLUCOSE METER (BEAKER) 263 mg/dL 70-110 : TESTED AT [facility] [address] (test dypq=1659) [facility], [address]: Grease Remover/Accounting Auditor [id number] for NOVA PERSAUD CBC W/PLT COUNT & AUTO [id number] 05:21:00 Test Item Value Reference Range Comments WHITE BLOOD CELL COUNT (BEAKER) (test fdmy=977) 6.6 K/ L 3.5-10.5 RED BLOOD CELL COUNT (BEAKER) (test rnhk=150) 4.03 M/ L 3.93-5.22 HEMOGLOBIN (BEAKER) (test ifkx=625) 12.0 GM/DL 11.2-15.7 HEMATOCRIT (BEAKER) (test roeo=459) 37.8 % 34.1-44.9 MEAN CORPUSCULAR VOLUME (BEAKER) (test ucwk=431) 93.8 fL 79.4-94.8 MEAN CORPUSCULAR HEMOGLOBIN (BEAKER) (test 29.8 pg 25.6-32.2 efxl=156) MEAN CORPUSCULAR HEMOGLOBIN CONC (BEAKER) (test 31.7 GM/DL 32.2-35.5 ndvz=590) RED CELL DISTRIBUTION WIDTH (BEAKER) (test 15.8 % 11.7-14.4 osmf=585) PLATELET COUNT (BEAKER) (test nckm=986) 226 K/CU MM 150-450 MEAN PLATELET VOLUME (BEAKER) (test ktvp=697) 10.5 fL 9.4-12.3 NUCLEATED RED BLOOD CELLS (BEAKER) (test 0 /100 WBC 0-0 wgzi=076) NEUTROPHILS RELATIVE PERCENT (BEAKER) (test 82 % ibum=822) LYMPHOCYTES RELATIVE PERCENT (BEAKER) (test 15 % nonv=507) MONOCYTES RELATIVE PERCENT (BEAKER) (test 1 % iqly=505) EOSINOPHILS RELATIVE PERCENT (BEAKER) (test 0 % ctcw=356) BASOPHILS RELATIVE PERCENT (BEAKER) (test 0 % dogl=777) NEUTROPHILS ABSOLUTE COUNT (BEAKER) (test 5.38 K/ L 1.56-6.13 hqvb=744) LYMPHOCYTES ABSOLUTE COUNT (BEAKER) (test 1.01 K/ L 1.18-3.74 vwgd=734) MONOCYTES ABSOLUTE COUNT (BEAKER) (test 0.08 K/ L 0.24-0.36 zlpf=733) EOSINOPHILS ABSOLUTE COUNT (BEAKER) (test 0.00 K/ L 0.04-0.36 kwpl=158) BASOPHILS ABSOLUTE COUNT (BEAKER) (test 0.02 K/ L 0.01-0.08 aicq=663) IMMATURE GRANULOCYTES-RELATIVE PERCENT (BEAKER) 1 % 0-1 (test fjxw=5411) BASIC METABOLIC [id number] 05:18:00 Test Item Value Reference Range Comments SODIUM (BEAKER) (test 137 meq/L 136-145 qjnx=140) POTASSIUM (BEAKER) (test 4.3 meq/L 3.5-5.1 leqg=516) CHLORIDE (BEAKER) (test 100 meq/L 98-107 ogmn=905) CO2 (BEAKER) (test 27 meq/L 22-29 snly=857) BLOOD UREA NITROGEN 74 mg/dL 7-21 (BEAKER) (test mbsq=505) CREATININE (BEAKER) (test 2.85 mg/dL 0.57-1.25 jdue=529) GLUCOSE RANDOM (BEAKER) 266 mg/dL 70-105 (test telv=282) CALCIUM (BEAKER) (test 9.5 mg/dL 8.4-10.2 ktnr=940) EGFR (BEAKER) (test 16 mL/min/1.73 sq m ESTIMATED GFR IS NOT vkvz=7986) ACCURATE CREATININE CLEARANCE IN PREDICTING GLOMERULAR FILTRATION RATE. ESTIMATED GFR IS NOT APPLICABLE FOR DIALYSIS PATIENTS. [id number] 05:17:00 Test Item Value Reference Range Comments PHOSPHORUS (BEAKER) (test gjuz=207) 4.4 mg/dL 2.3-4.7 [id number] 05:17:00 Test Item Value Reference Range Comments MAGNESIUM (BEAKER) (test smzr=549) 2.0 mg/dL 1.6-2.6 B-TYPE NATRIURETIC FACTOR (BNP)2018-12-25 04:55:00 Test Item Value Reference Range Comments B-TYPE NATRIURETIC PEPTIDE (BEAKER) (test 775 pg/mL 0-100 fpwc=726) CALCIUM, [id number] 04:45:00 Test Item Value Reference Range Comments CALCIUM IONIZED (BEAKER) (test gbow=829) 1.16 mmol/L 1.12-1.27 PH, BLOOD (BEAKER) (test givd=8849) 7.32 POCT-GLUCOSE [id number] 23:15:00 Test Item Value Reference Range Comments POC-GLUCOSE METER (BEAKER) 280 mg/dL 70-110 : Notified RN/MD: TESTED AT (test suxt=8339) [address], [address]: Grease Remover/Accounting Auditor [id number] for GULSHAN GILMORE POCT-GLUCOSE [id number] 23:13:00 Test Item Value Reference Range Comments POC-GLUCOSE METER (BEAKER) 179 mg/dL 70-110 : TESTED AT [address] (test oaoj=3208) [facility], [address]: Grease Remover/Accounting Auditor [id number] for GULSHAN GILMORE [id number] 22:12:00 Test Item Value Reference Range Comments ACTIVATED CLOTTING TIME 147 sec Reference Range: 74-137 (BEAKER) (test gvmf=780) seconds, Baseline/TESTED AT [address] [address] [id number] 17:58:00 Test Item Value Reference Range Comments ACTIVATED CLOTTING TIME 257 sec Reference Range: 74-137 (BEAKER) (test aeir=746) seconds, Baseline/TESTED AT [address] [address] [id number] 17:57:00 Test Item Value Reference Range Comments ACTIVATED CLOTTING TIME 252 sec Reference Range: 74-137 (BEAKER) (test exhp=560) seconds, Baseline/TESTED AT [address] [address] POCT-GLUCOSE [id number] 12:58:00 Test Item Value Reference Range Comments POC-GLUCOSE METER (BEAKER) 150 mg/dL 70-110 : TESTED AT [address] (test vbvi=3685) [facility], [address]: Grease Remover/Accounting Auditor [id number] for MUKESH LYNN [id number] 08:41:00 Test Item Value Reference Range Comments PARTIAL THROMBOPLASTIN TIME (BEAKER) (test 69.4 seconds 22.5-36.0 dciq=053) POCT-GLUCOSE [id number] 08:37:00 Test Item Value Reference Range Comments POC-GLUCOSE METER (BEAKER) 115 mg/dL 70-110 : Notified RN/MD: TESTED AT (test awbl=3581) [facility] [address] [facility], [address]: Grease Remover/Accounting Auditor [id number] for Adilene Madrigal COMPREHENSIVE METABOLIC [id number] 01:52:00 Test Item Value Reference Range Comments TOTAL PROTEIN (BEAKER) 6.5 gm/dL 6.0-8.3 Specimen slightly (test mufl=226) hemolyzed ALBUMIN (BEAKER) (test 3.6 g/dL 3.5-5.0 Specimen slightly qesb=9992) hemolyzed ALKALINE PHOSPHATASE 89 U/L 40-150 (BEAKER) (test kpfg=834) BILIRUBIN TOTAL (BEAKER) 0.4 mg/dL 0.2-1.2 Specimen slightly (test dvms=410) hemolyzed SODIUM (BEAKER) (test 136 meq/L 136-145 qnou=726) POTASSIUM (BEAKER) (test 4.0 meq/L 3.5-5.1 Specimen slightly wxra=680) hemolyzed CHLORIDE (BEAKER) (test 100 meq/L 98-107 gcel=529) CO2 (BEAKER) (test 24 meq/L 22-29 jetg=124) BLOOD UREA NITROGEN 77 mg/dL 7-21 (BEAKER) (test nknb=283) CREATININE (BEAKER) (test 2.79 mg/dL 0.57-1.25 Specimen slightly ogyp=802) hemolyzed GLUCOSE RANDOM (BEAKER) 89 mg/dL 70-105 (test zowr=936) CALCIUM (BEAKER) (test 9.3 mg/dL 8.4-10.2 lwss=982) AST (SGOT) (BEAKER) (test 18 U/L 5-34 Specimen slightly huva=558) hemolyzed ALT (SGPT) (BEAKER) (test 10 U/L 6-55 Specimen slightly tkda=497) hemolyzed EGFR (BEAKER) (test 16 mL/min/1.73 sq m ESTIMATED GFR IS NOT lzuj=4254) ACCURATE CREATININE CLEARANCE IN PREDICTING GLOMERULAR FILTRATION RATE. ESTIMATED GFR IS NOT APPLICABLE FOR DIALYSIS PATIENTS. [id number] 01:29:00 Test Item Value Reference Range Comments PARTIAL THROMBOPLASTIN TIME (BEAKER) (test 51.5 seconds 22.5-36.0 lwlr=975) POCT-GLUCOSE [id number] 18:32:00 Test Item Value Reference Range Comments POC-GLUCOSE METER (BEAKER) 185 mg/dL 70-110 : TESTED AT [facility] [address] [facility] (test xufi=5829) [facility], [address]: Grease Remover/Accounting Auditor [id number] for Akash Resendiz POCT-GLUCOSE [id number] 18:31:00 Test Item Value Reference Range Comments POC-GLUCOSE METER (BEAKER) 210 mg/dL 70-110 : TESTED AT [address] (test exxa=5801) [facility], [address]: Grease Remover/Accounting Auditor [id number] for Akash Resendiz POCT-GLUCOSE [id number] 18:29:00 Test Item Value Reference Range Comments POC-GLUCOSE METER (BEAKER) 150 mg/dL 70-110 : TESTED AT [address] (test kwhf=8230) [facility], [address]: Grease Remover/Accounting Auditor [id number] for LIZ WATSON [id number] 16:30:00 Test Item Value Reference Range Comments PARTIAL THROMBOPLASTIN TIME (BEAKER) (test 98.0 seconds 22.5-36.0 cbhu=098) TROPONIN [id number] 09:11:00 Test Item Value Reference Range Comments TROPONIN I (BEAKER) (test unis=467) 0.97 ng/mL 0.00-0.03 Troponin I (TnI) levels [...] failure, acidosis, acute neurological disease, and persistent tachyarrhythmia.[id number] 07:52:00 Test Item Value Reference Range Comments PHOSPHORUS (BEAKER) (test etfk=166) 3.9 mg/dL 2.3-4.7 [id number] 07:52:00 Test Item Value Reference Range Comments MAGNESIUM (BEAKER) (test atlo=989) 2.0 mg/dL 1.6-2.6 COMPREHENSIVE METABOLIC [id number] 07:52:00 Test Item Value Reference Range Comments TOTAL PROTEIN (BEAKER) 6.0 gm/dL 6.0-8.3 (test twtw=842) ALBUMIN (BEAKER) (test 3.4 g/dL 3.5-5.0 zmag=7086) ALKALINE PHOSPHATASE 81 U/L 40-150 (BEAKER) (test qeup=428) BILIRUBIN TOTAL (BEAKER) 0.5 mg/dL 0.2-1.2 (test givk=070) SODIUM (BEAKER) (test 138 meq/L 136-145 iwxy=842) POTASSIUM (BEAKER) (test 3.6 meq/L 3.5-5.1 hijz=259) CHLORIDE (BEAKER) (test 100 meq/L 98-107 rwca=489) CO2 (BEAKER) (test 28 meq/L 22-29 arle=512) BLOOD UREA NITROGEN 82 mg/dL 7-21 (BEAKER) (test jttd=018) CREATININE (BEAKER) (test 3.06 mg/dL 0.57-1.25 fxqt=023) GLUCOSE RANDOM (BEAKER) 128 mg/dL 70-105 (test qlvl=463) CALCIUM (BEAKER) (test 8.9 mg/dL 8.4-10.2 zbez=423) AST (SGOT) (BEAKER) (test 15 U/L 5-34 htyd=973) ALT (SGPT) (BEAKER) (test 10 U/L 6-55 nmkd=843) EGFR (BEAKER) (test 15 mL/min/1.73 sq m ESTIMATED GFR IS NOT rjmd=5166) ACCURATE CREATININE CLEARANCE IN PREDICTING GLOMERULAR FILTRATION RATE. ESTIMATED GFR IS NOT APPLICABLE FOR DIALYSIS PATIENTS. CALCIUM, [id number] 07:37:00 Test Item Value Reference Range Comments CALCIUM IONIZED (BEAKER) (test yzrf=133) 1.14 mmol/L 1.12-1.27 PH, BLOOD (BEAKER) (test zrng=4288) 7.40 B-TYPE NATRIURETIC FACTOR (BNP)2018-12-23 06:42:00 Test Item Value Reference Range Comments B-TYPE NATRIURETIC PEPTIDE (BEAKER) (test 190 pg/mL 0-100 baoa=145) [id number] 05:48:00 Test Item Value Reference Range Comments PARTIAL THROMBOPLASTIN TIME (BEAKER) (test 90.8 seconds 22.5-36.0 giiy=097) CBC W/PLT COUNT & AUTO [id number] 05:35:00 Test Item Value Reference Range Comments WHITE BLOOD CELL COUNT (BEAKER) (test gcsd=198) 7.7 K/ L 3.5-10.5 RED BLOOD CELL COUNT (BEAKER) (test vfhc=900) 3.43 M/ L 3.93-5.22 HEMOGLOBIN (BEAKER) (test vbei=696) 10.2 GM/DL 11.2-15.7 HEMATOCRIT (BEAKER) (test knhh=131) 31.2 % 34.1-44.9 MEAN CORPUSCULAR VOLUME (BEAKER) (test whkz=129) 91.0 fL 79.4-94.8 MEAN CORPUSCULAR HEMOGLOBIN (BEAKER) (test 29.7 pg 25.6-32.2 pcnt=256) MEAN CORPUSCULAR HEMOGLOBIN CONC (BEAKER) (test 32.7 GM/DL 32.2-35.5 yatc=143) RED CELL DISTRIBUTION WIDTH (BEAKER) (test 15.8 % 11.7-14.4 vbbq=019) PLATELET COUNT (BEAKER) (test bsfh=804) 188 K/CU MM 150-450 MEAN PLATELET VOLUME (BEAKER) (test tdxv=783) 10.0 fL 9.4-12.3 NUCLEATED RED BLOOD CELLS (BEAKER) (test 0 /100 WBC 0-0 apio=157) NEUTROPHILS RELATIVE PERCENT (BEAKER) (test 65 % ahle=340) LYMPHOCYTES RELATIVE PERCENT (BEAKER) (test 19 % foem=769) MONOCYTES RELATIVE PERCENT (BEAKER) (test 9 % lhsx=063) EOSINOPHILS RELATIVE PERCENT (BEAKER) (test 6 % xuyp=145) BASOPHILS RELATIVE PERCENT (BEAKER) (test 1 % vbmi=594) NEUTROPHILS ABSOLUTE COUNT (BEAKER) (test 4.99 K/ L 1.56-6.13 vopq=393) LYMPHOCYTES ABSOLUTE COUNT (BEAKER) (test 1.46 K/ L 1.18-3.74 apsf=890) MONOCYTES ABSOLUTE COUNT (BEAKER) (test 0.68 K/ L 0.24-0.36 ifgi=960) EOSINOPHILS ABSOLUTE COUNT (BEAKER) (test 0.47 K/ L 0.04-0.36 gpke=964) BASOPHILS ABSOLUTE COUNT (BEAKER) (test 0.04 K/ L 0.01-0.08 wvjw=794) IMMATURE GRANULOCYTES-RELATIVE PERCENT (BEAKER) 1 % 0-1 (test zmpv=6492) POCT-GLUCOSE [id number] 21:16:00 Test Item Value Reference Range Comments POC-GLUCOSE METER (BEAKER) 200 mg/dL 70-110 : TESTED AT [address] (test kdlt=0472) [facility], [address]: Grease Remover/Accounting Auditor [id number] for GISSELLE LOWERY [id number] 20:08:00 Test Item Value Reference Range Comments PARTIAL THROMBOPLASTIN TIME (BEAKER) (test 51.9 seconds 22.5-36.0 rnlg=252) POCT-GLUCOSE [id number] 17:37:00 Test Item Value Reference Range Comments POC-GLUCOSE METER (BEAKER) 211 mg/dL 70-110 : TESTED AT [address] (test rfgq=6016) [facility], [address]: Grease Remover/Accounting Auditor [id number] for Deepa Duenas [id number] 13:26:00 Test Item Value Reference Range Comments PARTIAL THROMBOPLASTIN TIME (BEAKER) (test 65.2 seconds 22.5-36.0 yzws=190) POCT-GLUCOSE [id number] 13:18:00 Test Item Value Reference Range Comments POC-GLUCOSE METER (BEAKER) 194 mg/dL 70-110 : TESTED AT [address] (test gbfv=1783) [facility], [address]: Grease Remover/Accounting Auditor [id number] for Deepa Duenas HEMOGLOBIN [id number] 10:07:00 Test Item Value Reference Range Comments HEMOGLOBIN A1C (BEAKER) (test lxor=217) 10.2 % 4.3-6.1 [id number] 09:05:00 Test Item Value Reference Range Comments FERRITIN (BEAKER) (test zkrx=967) 195 ng/mL 5-275 POCT-GLUCOSE [id number] 08:37:00 Test Item Value Reference Range Comments POC-GLUCOSE METER (BEAKER) 202 mg/dL 70-110 : TESTED AT [facility] [address] (test pnjx=0655) [facility], [address]: Grease Remover/Accounting Auditor [id number] for CLIFF MCDONNELL CALCIUM, [id number] 06:55:00 Test Item Value Reference Range Comments CALCIUM IONIZED (BEAKER) (test rmjg=186) 1.11 mmol/L 1.12-1.27 PH, BLOOD (BEAKER) (test xjqu=5835) 7.41 IRON, TIBC, % SAT. (WITHOUT FERRITIN)2018-12-22 06:37:00 Test Item Value Reference Range Comments IRON (BEAKER) (test xhtq=317) 85.0 ug/dL 40.0-160.0 TOTAL IRON BINDING CAPACITY (BEAKER) (test 226 ug/dL 250-450 hhwq=895) IRON % SATURATION (2) (BEAKER) (test pqcl=9450) 38 % 20-55 TROPONIN [id number] 05:40:00 Test Item Value Reference Range Comments TROPONIN I (BEAKER) (test mcru=871) 1.32 ng/mL 0.00-0.03 Troponin I (TnI) levels [...] acute neurological disease, and persistent tachyarrhythmia.COMPREHENSIVE METABOLIC [id number] 05:39:00 Test Item Value Reference Range Comments TOTAL PROTEIN (BEAKER) 6.2 gm/dL 6.0-8.3 (test qgbe=182) ALBUMIN (BEAKER) (test 3.4 g/dL 3.5-5.0 eqzk=7738) ALKALINE PHOSPHATASE 81 U/L 40-150 (BEAKER) (test ewsh=495) BILIRUBIN TOTAL (BEAKER) 0.6 mg/dL 0.2-1.2 (test kkxw=552) SODIUM (BEAKER) (test 135 meq/L 136-145 nuxh=919) POTASSIUM (BEAKER) (test 3.9 meq/L 3.5-5.1 osbz=928) CHLORIDE (BEAKER) (test 97 meq/L 98-107 xdci=959) CO2 (BEAKER) (test 30 meq/L 22-29 sgqd=250) BLOOD UREA NITROGEN 77 mg/dL 7-21 (BEAKER) (test dmmi=638) CREATININE (BEAKER) (test 3.61 mg/dL 0.57-1.25 equr=135) GLUCOSE RANDOM (BEAKER) 156 mg/dL 70-105 (test erxr=958) CALCIUM (BEAKER) (test 9.0 mg/dL 8.4-10.2 roms=520) AST (SGOT) (BEAKER) (test 14 U/L 5-34 hdnl=027) ALT (SGPT) (BEAKER) (test 6 U/L 6-55 tvxx=226) EGFR (BEAKER) (test 12 mL/min/1.73 sq m ESTIMATED GFR IS NOT bgix=1543) ACCURATE CREATININE CLEARANCE IN PREDICTING GLOMERULAR FILTRATION RATE. ESTIMATED GFR IS NOT APPLICABLE FOR DIALYSIS PATIENTS. B-TYPE NATRIURETIC FACTOR (BNP)2018-12-22 05:33:00 Test Item Value Reference Range Comments B-TYPE NATRIURETIC PEPTIDE (BEAKER) (test 221 pg/mL 0-100 gsdm=936) [id number] 05:32:00 Test Item Value Reference Range Comments PHOSPHORUS (BEAKER) (test rqic=546) 4.8 mg/dL 2.3-4.7 [id number] 05:32:00 Test Item Value Reference Range Comments MAGNESIUM (BEAKER) (test owia=414) 2.0 mg/dL 1.6-2.6 [id number] 05:19:00 Test Item Value Reference Range Comments PARTIAL THROMBOPLASTIN TIME (BEAKER) (test 92.9 seconds 22.5-36.0 egal=904) RETICULOCYTE [id number] 05:11:00 Test Item Value Reference Range Comments RETICULOCYTE COUNT PCT (BEAKER) (test btni=657) 2.0 % 0.5-1.7 CBC W/PLT COUNT & AUTO [id number] 05:11:00 Test Item Value Reference Range Comments WHITE BLOOD CELL COUNT (BEAKER) (test vdmq=507) 7.4 K/ L 3.5-10.5 RED BLOOD CELL COUNT (BEAKER) (test fckb=211) 3.42 M/ L 3.93-5.22 HEMOGLOBIN (BEAKER) (test zcvc=103) 10.1 GM/DL 11.2-15.7 HEMATOCRIT (BEAKER) (test kgir=103) 31.4 % 34.1-44.9 MEAN CORPUSCULAR VOLUME (BEAKER) (test gpzf=698) 91.8 fL 79.4-94.8 MEAN CORPUSCULAR HEMOGLOBIN (BEAKER) (test 29.5 pg 25.6-32.2 rsta=320) MEAN CORPUSCULAR HEMOGLOBIN CONC (BEAKER) (test 32.2 GM/DL 32.2-35.5 zoas=509) RED CELL DISTRIBUTION WIDTH (BEAKER) (test 15.9 % 11.7-14.4 esds=484) PLATELET COUNT (BEAKER) (test wrvm=728) 192 K/CU MM 150-450 MEAN PLATELET VOLUME (BEAKER) (test xfzv=668) 10.5 fL 9.4-12.3 NUCLEATED RED BLOOD CELLS (BEAKER) (test 0 /100 WBC 0-0 sqdn=959) NEUTROPHILS RELATIVE PERCENT (BEAKER) (test 55 % cjun=549) LYMPHOCYTES RELATIVE PERCENT (BEAKER) (test 26 % nbgq=473) MONOCYTES RELATIVE PERCENT (BEAKER) (test 12 % lzdg=518) EOSINOPHILS RELATIVE PERCENT (BEAKER) (test 7 % tjys=583) BASOPHILS RELATIVE PERCENT (BEAKER) (test 1 % mljj=767) NEUTROPHILS ABSOLUTE COUNT (BEAKER) (test 4.05 K/ L 1.56-6.13 ctan=817) LYMPHOCYTES ABSOLUTE COUNT (BEAKER) (test 1.89 K/ L 1.18-3.74 abjl=363) MONOCYTES ABSOLUTE COUNT (BEAKER) (test 0.86 K/ L 0.24-0.36 lafz=003) EOSINOPHILS ABSOLUTE COUNT (BEAKER) (test 0.49 K/ L 0.04-0.36 vymk=069) BASOPHILS ABSOLUTE COUNT (BEAKER) (test 0.04 K/ L 0.01-0.08 wmqb=750) IMMATURE GRANULOCYTES-RELATIVE PERCENT (BEAKER) 1 % 0-1 (test esgj=1882) U/S, RENAL, [id number] 01:46:00Reason for exam:->AKIShould this be performed at [...] Verified Date/Time: 12/22/2018 01:46: 35 POCT -GLUCOSE [id number] 22:07:00 Test Item Value Reference Range Comments POC-GLUCOSE METER (BEAKER) 105 mg/dL 70-110 : TESTED AT [address] (test smrz=9237) [facility], [address]: Grease Remover/Accounting Auditor [id number] for Iza Thurman [id number] 20:19:00 Test Item Value Reference Range Comments PARTIAL THROMBOPLASTIN TIME (BEAKER) (test 75.7 seconds 22.5-36.0 yejm=156) POCT-GLUCOSE [id number] 17:42:00 Test Item Value Reference Range Comments POC-GLUCOSE METER (BEAKER) 305 mg/dL 70-110 : TESTED AT [address] (test rwjm=1639) [place] [address]: Grease Remover/Accounting Auditor [id number] for CLIFF MCDONNELL URINALYSIS W/ [id number] 14:46:00 Test Item Value Reference Range Comments COLOR (BEAKER) (test rhgr=551) Yellow CLARITY (BEAKER) (test vyma=105) Clear SPECIFIC GRAVITY UA (BEAKER) (test ltbk=248) 1.015 1.001-1.035 PH UA (BEAKER) (test zkrb=427) 5.0 5.0-8.0 PROTEIN UA (BEAKER) (test ufkk=750) 10 mg/dL Negative GLUCOSE UA (BEAKER) (test dcxl=372) 30 mg/dL Negative KETONES UA (BEAKER) (test qneo=528) Negative Negative BILIRUBIN UA (BEAKER) (test xajx=294) Negative Negative BLOOD UA (BEAKER) (test edyt=521) Negative Negative NITRITE UA (BEAKER) (test sioy=730) Negative Negative LEUKOCYTE ESTERASE UA (BEAKER) (test rxvj=155) Small Negative UROBILINOGEN UA (BEAKER) (test dbkl=859) 0.2 mg/dL 0.2-1.0 RBC UA (BEAKER) (test uxtm=683) 1 /HPF WBC UA (BEAKER) (test vevv=566) 3 /HPF SQUAMOUS EPITHELIAL (BEAKER) (test bkma=492) 1 /HPF HYALINE CASTS (BEAKER) (test jufq=245) 7 /LPF SOURCE(BEAKER) (test xdjy=6333) CREATININE, RANDOM [id number] 14:45:00 Test Item Value Reference Range Comments CREATININE URINE (BEAKER) (test snru=506) 123.0 mg/dL Reference Range: No [id number] 14:24:00 Test Item Value Reference Range Comments PARTIAL THROMBOPLASTIN TIME (BEAKER) (test 67.3 seconds 22.5-36.0 rxbv=033) PROTEIN, RANDOM [id number] 14:23:00 Test Item Value Reference Range Comments PROTEIN, URINE (BEAKER) (test qrlm=0905) 20 mg/dL 0-14 SODIUM, RANDOM [id number] 14:23:00 Test Item Value Reference Range Comments SODIUM URINE (BEAKER) (test msjw=877) 26 meq/L Reference Range: No NormalsTROPONIN [id number] 12:25:00 Test Item Value Reference Range Comments TROPONIN I (BEAKER) (test tzxs=015) 2.12 ng/mL 0.00-0.03 Troponin I (TnI) levels [...] acidosis, acute neurological disease, and persistent tachyarrhythmia.POCT-GLUCOSE [id number] 10:12:00 Test Item Value Reference Range Comments POC-GLUCOSE METER (BEAKER) 177 mg/dL 70-110 : TESTED AT [facility] [address] [facility] (test zvxp=2560) [facility], [address]: Grease Remover/Accounting Auditor [id number] for CLIFF MCDONNELL PT/[id number] 07:55:00 Test Item Value Reference Range Comments PROTIME (BEAKER) (test cwdi=061) 14.1 seconds 11.9-14.2 INR (BEAKER) (test otcg=428) 1.2 <=5.9 PARTIAL THROMBOPLASTIN TIME (BEAKER) (test 55.3 seconds 22.5-36.0 ibaz=716) Effective 07/18/2018: PT Reference Range ChangeNew: 11.9-14.2 Previous: 11.7- 14.7RECOMMENDED COUMADIN/WARFARIN INR THERAPY RANGESSTANDARD DOSE: 2.0-3.0 Includes: PROPHYLAXIS for venous thrombosis, systemic embolization; TREATMENT for venous thrombosis and/or pulmonary embolus.HIGH RISK: Target INR is2.5-3.5 for patients wiht mechanical heart valves.[id number] 05:00:00 Test Item Value Reference Range Comments PARTIAL THROMBOPLASTIN TIME (BEAKER) (test 132.7 seconds 22.5-36.0 xybn=463) 6 hours after starting heparin infusion and as indicated per sliding scaleTROPONIN [id number] 04:38:00 Test Item Value Reference Range Comments TROPONIN I (BEAKER) (test kuhh=785) 2.37 ng/mL 0.00-0.03 Troponin I (TnI) levels [...] acute neurological disease, and persistent tachyarrhythmia.BASIC METABOLIC [id number] 04:37:00 Test Item Value Reference Range Comments SODIUM (BEAKER) (test 139 meq/L 136-145 bryj=969) POTASSIUM (BEAKER) (test 3.2 meq/L 3.5-5.1 pctp=331) CHLORIDE (BEAKER) (test 98 meq/L 98-107 hwmu=753) CO2 (BEAKER) (test 33 meq/L 22-29 qfnd=439) BLOOD UREA NITROGEN 63 mg/dL 7-21 (BEAKER) (test vspo=860) CREATININE (BEAKER) (test 3.13 mg/dL 0.57-1.25 jihb=985) GLUCOSE RANDOM (BEAKER) 161 mg/dL 70-105 (test znbq=163) CALCIUM (BEAKER) (test 9.4 mg/dL 8.4-10.2 dohm=523) EGFR (BEAKER) (test 14 mL/min/1.73 sq m ESTIMATED GFR IS NOT abtj=9621) ACCURATE CREATININE CLEARANCE IN PREDICTING GLOMERULAR FILTRATION RATE. ESTIMATED GFR IS NOT APPLICABLE FOR DIALYSIS PATIENTS. CBC (HEMOGRAM ONLY)2018-12-21 04:09:00 Test Item Value Reference Range Comments WHITE BLOOD CELL COUNT (BEAKER) (test gcgo=321) 7.1 K/ L 3.5-10.5 RED BLOOD CELL COUNT (BEAKER) (test bnqx=994) 3.62 M/ L 3.93-5.22 HEMOGLOBIN (BEAKER) (test ugnn=611) 10.9 GM/DL 11.2-15.7 HEMATOCRIT (BEAKER) (test hjgf=357) 33.3 % 34.1-44.9 MEAN CORPUSCULAR VOLUME (BEAKER) (test dvbu=154) 92.0 fL 79.4-94.8 MEAN CORPUSCULAR HEMOGLOBIN (BEAKER) (test 30.1 pg 25.6-32.2 bqym=798) MEAN CORPUSCULAR HEMOGLOBIN CONC (BEAKER) (test 32.7 GM/DL 32.2-35.5 kbrx=772) RED CELL DISTRIBUTION WIDTH (BEAKER) (test 15.8 % 11.7-14.4 eifn=323) PLATELET COUNT (BEAKER) (test azsc=154) 188 K/CU MM 150-450 MEAN PLATELET VOLUME (BEAKER) (test wvjp=367) 10.2 fL 9.4-12.3 NUCLEATED RED BLOOD CELLS (BEAKER) (test 0 /100 WBC 0-0 fcip=471) TROPONIN [id number] 01:13:00 Test Item Value Reference Range Comments TROPONIN I (BEAKER) (test ewxu=747) 2.09 ng/mL 0.00-0.03 Troponin I (TnI) levels [...] acidosis, acute neurological disease, and persistent tachyarrhythmia.POCT-GLUCOSE [id number] 00:48:00 Test Item Value Reference Range Comments POC-GLUCOSE METER (BEAKER) 226 mg/dL 70-110 : TESTED AT [address] (test wccb=5236) [facility], [address]: Grease Remover/Accounting Auditor DQ=[id number] for ELAYNE BISHOP ALEX, CHEST, 1 VIEW, NON [id number] 21:25:00Reason for exam:->chest painShould this be performed [...] heads are redemonstrated. Signed : [facility] Verified Date/Time:12/20/2018 21:25:44 TROPONIN [id number] 21:11:00 Test Item Value Reference Range Comments TROPONIN I (BEAKER) (test bwud=934) 1.33 ng/mL 0.00-0.03 Troponin I (TnI) levels [...] NATRIURETIC PEPTIDE (BEAKER) (test 1084 pg/mL 0-100 wbfc=470) COMPREHENSIVE METABOLIC [id number] 21:05:00 Test Item Value Reference Range Comments TOTAL PROTEIN (BEAKER) 6.5 gm/dL 6.0-8.3 (test eobt=956) ALBUMIN (BEAKER) (test 3.6 g/dL 3.5-5.0 oksg=8171) ALKALINE PHOSPHATASE 120 U/L 40-150 (BEAKER) (test vubm=999) BILIRUBIN TOTAL (BEAKER) 0.5 mg/dL 0.2-1.2 (test hcpt=209) SODIUM (BEAKER) (test 137 meq/L 136-145 rldk=185) POTASSIUM (BEAKER) (test 3.3 meq/L 3.5-5.1 treq=601) CHLORIDE (BEAKER) (test 96 meq/L 98-107 kpdl=565) CO2 (BEAKER) (test 32 meq/L 22-29 momj=387) BLOOD UREA NITROGEN 60 mg/dL 7-21 (BEAKER) (test xaoz=914) CREATININE (BEAKER) (test 2.83 mg/dL 0.57-1.25 hemy=244) GLUCOSE RANDOM (BEAKER) 234 mg/dL 70-105 (test xbhb=258) CALCIUM (BEAKER) (test 9.3 mg/dL 8.4-10.2 hoiw=501) AST (SGOT) (BEAKER) (test 14 U/L 5-34 gdyo=809) ALT (SGPT) (BEAKER) (test 7 U/L 6-55 wspb=281) EGFR (BEAKER) (test 16 mL/min/1.73 sq m ESTIMATED GFR IS NOT hcpf=6723) ACCURATE CREATININE CLEARANCE IN PREDICTING GLOMERULAR FILTRATION RATE. ESTIMATED GFR IS NOT APPLICABLE FOR DIALYSIS PATIENTS. [id number] 21:02:00 Test Item Value Reference Range Comments MAGNESIUM (BEAKER) (test jpok=933) 2.0 mg/dL 1.6-2.6 [id number] 20:58:00 Test Item Value Reference Range Comments PROTIME (BEAKER) (test sopv=939) 13.3 seconds 11.9-14.2 INR (BEAKER) (test qydj=471) 1.1 <=5.9 PARTIAL THROMBOPLASTIN TIME (BEAKER) (test 26.3 seconds 22.5-36.0 ufaj=329) Effective 07/18/2018: PT Reference Range ChangeNew: 11.9-14.2 Previous: 11.7- 14.7RECOMMENDED COUMADIN/WARFARIN INR THERAPY RANGESSTANDARD DOSE: 2.0-3.0 Includes: PROPHYLAXIS for venous thrombosis, systemic embolization; TREATMENT for venous thrombosis and/or pulmonary embolus.HIGH RISK: Target INR is2.5-3.5 for patients wiht mechanical heart valves.CBC W/PLT COUNT & AUTO [id number] 20:46:00 Test Item Value Reference Range Comments WHITE BLOOD CELL COUNT (BEAKER) (test gbdv=709) 7.7 K/ L 3.5-10.5 RED BLOOD CELL COUNT (BEAKER) (test tlhi=182) 3.86 M/ L 3.93-5.22 HEMOGLOBIN (BEAKER) (test mhft=985) 11.5 GM/DL 11.2-15.7 HEMATOCRIT (BEAKER) (test zhpg=830) 35.0 % 34.1-44.9 MEAN CORPUSCULAR VOLUME (BEAKER) (test lyue=347) 90.7 fL 79.4-94.8 MEAN CORPUSCULAR HEMOGLOBIN (BEAKER) (test 29.8 pg 25.6-32.2 vqfs=064) MEAN CORPUSCULAR HEMOGLOBIN CONC (BEAKER) (test 32.9 GM/DL 32.2-35.5 vdmp=334) RED CELL DISTRIBUTION WIDTH (BEAKER) (test 15.5 % 11.7-14.4 mago=815) PLATELET COUNT (BEAKER) (test rhem=911) 199 K/CU MM 150-450 MEAN PLATELET VOLUME (BEAKER) (test qzsd=970) 9.8 fL 9.4-12.3 NUCLEATED RED BLOOD CELLS (BEAKER) (test 0 /100 WBC 0-0 ovqw=114) NEUTROPHILS RELATIVE PERCENT (BEAKER) (test 63 % zhfu=411) LYMPHOCYTES RELATIVE PERCENT (BEAKER) (test 21 % vkbu=355) MONOCYTES RELATIVE PERCENT (BEAKER) (test 9 % rphc=079) EOSINOPHILS RELATIVE PERCENT (BEAKER) (test 5 % qwtg=190) BASOPHILS RELATIVE PERCENT (BEAKER) (test 1 % wvth=003) NEUTROPHILS ABSOLUTE COUNT (BEAKER) (test 4.83 K/ L 1.56-6.13 ntco=696) LYMPHOCYTES ABSOLUTE COUNT (BEAKER) (test 1.63 K/ L 1.18-3.74 aqrg=988) MONOCYTES ABSOLUTE COUNT (BEAKER) (test 0.72 K/ L 0.24-0.36 ybmv=228) EOSINOPHILS ABSOLUTE COUNT (BEAKER) (test 0.41 K/ L 0.04-0.36 cfvh=390) BASOPHILS ABSOLUTE COUNT (BEAKER) (test 0.04 K/ L 0.01-0.08 dooh=706) IMMATURE GRANULOCYTES-RELATIVE PERCENT (BEAKER) 1 % 0-1 (test dniy=2034) POCT-GLUCOSE [id number] 11:57:00 Test Item Value Reference Range Comments POC-GLUCOSE METER (BEAKER) 377 mg/dL 70-110 TESTED AT [address] (test adqr=4231) [place] [id number] POCT-GLUCOSE [id number] 09:11:00 Test Item Value Reference Range Comments POC-GLUCOSE METER (BEAKER) 95 mg/dL 70-110 TESTED AT [address] (test tjkx=0160) [facility] [address] POCT-GLUCOSE [id number] 06:53:00 Test Item Value Reference Range Comments POC-GLUCOSE METER (BEAKER) 288 mg/dL 70-110 TESTED AT [address] (test rnhl=3429) [place] [id number] COMPREHENSIVE METABOLIC [id number] 01:54:00 Test Item Value Reference Range Comments TOTAL PROTEIN (BEAKER) 6.1 gm/dL 6.0-8.3 Specimen slightly (test hhks=466) hemolyzed ALBUMIN (BEAKER) (test 3.3 g/dL 3.5-5.0 Specimen slightly jsce=0178) hemolyzed ALKALINE PHOSPHATASE 91 U/L 40-150 (BEAKER) (test mzff=683) BILIRUBIN TOTAL (BEAKER) 0.5 mg/dL 0.2-1.2 Specimen slightly (test ycxa=580) hemolyzed SODIUM (BEAKER) (test 134 meq/L 136-145 lwrb=638) POTASSIUM (BEAKER) (test 4.0 meq/L 3.5-5.1 Specimen slightly cprm=249) hemolyzed CHLORIDE (BEAKER) (test 101 meq/L 98-107 opdw=662) CO2 (BEAKER) (test 21 meq/L 22-29 wnld=084) BLOOD UREA NITROGEN 65 mg/dL 7-21 (BEAKER) (test jvvv=516) CREATININE (BEAKER) (test 2.75 mg/dL 0.57-1.25 Specimen slightly xrdg=526) hemolyzed GLUCOSE RANDOM (BEAKER) 434 mg/dL 70-105 (test frfb=374) CALCIUM (BEAKER) (test 8.4 mg/dL 8.4-10.2 grba=651) AST (SGOT) (BEAKER) (test 18 U/L 5-34 Specimen slightly wqdc=196) hemolyzed ALT (SGPT) (BEAKER) (test 13 U/L 6-55 Specimen slightly psdp=633) hemolyzed EGFR (BEAKER) (test 17 mL/min/1.73 sq m ESTIMATED GFR IS NOT ttln=3191) ACCURATE CREATININE CLEARANCE IN PREDICTING GLOMERULAR FILTRATION RATE. ESTIMATED GFR IS NOT APPLICABLE FOR DIALYSIS PATIENTS. [id number] 01:49:00 Test Item Value Reference Range Comments ACTIVATED CLOTTING TIME 142 sec Reference Range: 74-137 (BEAKER) (test xiro=152) seconds, Baseline/TESTED AT [facility] [address] [place] [id number] B-TYPE NATRIURETIC FACTOR (BNP)2018-11-13 01:42:00 Test Item Value Reference Range Comments B-TYPE NATRIURETIC PEPTIDE (BEAKER) (test 1151 pg/mL 0-100 yjct=981) URINALYSIS W/ [id number] 01:40:00 Test Item Value Reference Range Comments COLOR (BEAKER) (test vkgy=113) Light Yellow CLARITY (BEAKER) (test gjsy=509) Clear SPECIFIC GRAVITY UA (BEAKER) (test ciuc=030) 1.023 1.001-1.035 PH UA (BEAKER) (test bznw=220) 5.5 5.0-8.0 PROTEIN UA (BEAKER) (test ekad=448) 20 mg/dL Negative GLUCOSE UA (BEAKER) (test eqfz=055) >1000 mg/dL Negative KETONES UA (BEAKER) (test lxcj=840) 10 mg/dL Negative BILIRUBIN UA (BEAKER) (test hmgx=649) Negative Negative BLOOD UA (BEAKER) (test obze=591) Small Negative NITRITE UA (BEAKER) (test hidh=828) Negative Negative LEUKOCYTE ESTERASE UA (BEAKER) (test fkbj=877) Negative Negative UROBILINOGEN UA (BEAKER) (test gbgs=801) 0.2 mg/dL 0.2-1.0 RBC UA (BEAKER) (test gpgz=951) 2 /HPF WBC UA (BEAKER) (test hkga=191) 1 /HPF BACTERIA (BEAKER) (test rbdc=294) Rare SQUAMOUS EPITHELIAL (BEAKER) (test admz=307) 2 /HPF SOURCE(BEAKER) (test jvuy=2421) [id number] 01:36:00 Test Item Value Reference Range Comments MAGNESIUM (BEAKER) (test 2.0 mg/dL 1.6-2.6 Specimen slightly hemolyzed fitk=361) [id number] 01:36:00 Test Item Value Reference Range Comments PHOSPHORUS (BEAKER) (test 4.4 mg/dL 2.3-4.7 Specimen slightly hemolyzed jiom=226) CBC W/PLT COUNT & AUTO [id number] 01:24:00 Test Item Value Reference Range Comments WHITE BLOOD CELL COUNT (BEAKER) (test lpty=509) 7.4 K/ L 3.5-10.5 RED BLOOD CELL COUNT (BEAKER) (test kexz=237) 4.21 M/ L 3.93-5.22 HEMOGLOBIN (BEAKER) (test atzb=249) 12.4 GM/DL 11.2-15.7 HEMATOCRIT (BEAKER) (test imel=589) 38.7 % 34.1-44.9 MEAN CORPUSCULAR VOLUME (BEAKER) (test yruq=077) 91.9 fL 79.4-94.8 MEAN CORPUSCULAR HEMOGLOBIN (BEAKER) (test 29.5 pg 25.6-32.2 rfuk=640) MEAN CORPUSCULAR HEMOGLOBIN CONC (BEAKER) (test 32.0 GM/DL 32.2-35.5 rdoj=529) RED CELL DISTRIBUTION WIDTH (BEAKER) (test 14.6 % 11.7-14.4 xsoz=977) PLATELET COUNT (BEAKER) (test kslm=293) 174 K/CU MM 150-450 MEAN PLATELET VOLUME (BEAKER) (test iceg=730) 11.0 fL 9.4-12.3 NUCLEATED RED BLOOD CELLS (BEAKER) (test 0 /100 WBC 0-0 lrqc=413) NEUTROPHILS RELATIVE PERCENT (BEAKER) (test 87 % sjjx=244) LYMPHOCYTES RELATIVE PERCENT (BEAKER) (test 12 % ojcq=938) MONOCYTES RELATIVE PERCENT (BEAKER) (test 1 % bdpc=314) EOSINOPHILS RELATIVE PERCENT (BEAKER) (test 0 % kopy=288) BASOPHILS RELATIVE PERCENT (BEAKER) (test 0 % bazb=330) NEUTROPHILS ABSOLUTE COUNT (BEAKER) (test 6.42 K/ L 1.56-6.13 smrx=311) LYMPHOCYTES ABSOLUTE COUNT (BEAKER) (test 0.85 K/ L 1.18-3.74 gjbj=438) MONOCYTES ABSOLUTE COUNT (BEAKER) (test 0.04 K/ L 0.24-0.36 oabl=793) EOSINOPHILS ABSOLUTE COUNT (BEAKER) (test 0.00 K/ L 0.04-0.36 pfxk=708) BASOPHILS ABSOLUTE COUNT (BEAKER) (test 0.01 K/ L 0.01-0.08 eusm=820) IMMATURE GRANULOCYTES-RELATIVE PERCENT (BEAKER) 1 % 0-1 (test oruy=2778) CALCIUM, [id number] 01:16:00 Test Item Value Reference Range Comments CALCIUM IONIZED (BEAKER) (test hxdy=814) 1.10 mmol/L 1.12-1.27 PH, BLOOD (BEAKER) (test tdjm=6141) 7.32 [id number] 23:34:00 Test Item Value Reference Range Comments ACTIVATED CLOTTING TIME 164 sec Reference Range: 74-137 (BEAKER) (test fqmr=617) seconds, Baseline/TESTED AT [place] [address] [id number] 21:52:00 Test Item Value Reference Range Comments ACTIVATED CLOTTING TIME 191 sec Reference Range: 74-137 (BEAKER) (test izjc=490) seconds, Baseline/TESTED AT [place] [address] POCT-GLUCOSE [id number] 21:33:00 Test Item Value Reference Range Comments POC-GLUCOSE METER ([facility]) 294 mg/dL 70-110 TESTED AT [address] (test hdbb=5728) [place] [address] C. DIFFICILE GDH [id number] 20:08:00 Test Item Value Reference Range Comments CDT TOXIN (test Negative Negative thne=[id number]) CDT GDH ANTIGEN (test Positive Negative C. difficile present but toxin lkib=[id number]) not detected. Indicates colonization with non-toxigenic strain or level of toxin below detectable levels. No need for enteric isolation. Treatment is rarely needed (only when strong clinical suspicion for Clostridium difficile infection) Testing performed by Construct Rapid Cassette Assay. For GDH, published sensitivity of the assay is 98.7% compared to cytotoxicity testing. For Toxin AB, published sensitivity is 87.8% and specificity 99.4% compared to cytotoxicity testing.Verification of kit performance was done by the [facility] Microbiology Lab prior to clinical use.[id number] 17:58:00 Test Item Value Reference Range Comments ACTIVATED CLOTTING TIME 290 sec Reference Range: 74-137 (BEAKER) (test rwxr=754) seconds, Baseline/TESTED AT [place] [address] [id number] 16:57:00 Test Item Value Reference Range Comments ACTIVATED CLOTTING TIME 263 sec Reference Range: 74-137 (BEAKER) (test atjc=795) seconds, Baseline/TESTED AT [place] [address] [id number] 16:20:00 Test Item Value Reference Range Comments ACTIVATED CLOTTING TIME 252 sec Reference Range: 74-137 (BEAKER) (test klcd=597) seconds, Baseline/TESTED AT [place] [address] PET, CARDIAC PERFUSION MULTIPLE STUDIES, REST AND [id number] 15:26: 00Reason for exam:->eval chest pain, ischemiaFINAL REPORT PROCEDURE: MYOCARDIAL PERFUSION PET IMAGING (Rest/Stress)CPT CODE: [id number] INDICATION: Evaluate extent of known CAD, chest [...] rest.Symptoms: Chest discomfort, nausea, fatigue (Treatment was [id number] IV).Perfusion: There is an absence of perfusionin [...] MDReport Verified Date/Time: 11/12/2018 15:26:40 Reading Location: [address] Reading Room [id number] 10:22:00 Test Item Value Reference Range Comments PARTIAL THROMBOPLASTIN TIME (BEAKER) (test 90.3 seconds 22.5-36.0 mhig=248) HEMOGLOBIN [id number] 09:39:00 Test Item Value Reference Range Comments HEMOGLOBIN A1C (BEAKER) (test loqk=544) 12.0 % 4.3-6.1 POCT-GLUCOSE [id number] 08:37:00 Test Item Value Reference Range Comments POC-GLUCOSE METER (BEAKER) 281 mg/dL 70-[address] [facility] [address] [facility] (test qbtg=5683) [facility] [address] [id number] 05:54:00 Test Item Value Reference Range Comments PARTIAL THROMBOPLASTIN TIME (BEAKER) (test 135.4 seconds 22.5-36.0 chob=033) CALCIUM, [id number] 05:31:00 Test Item Value Reference Range Comments CALCIUM IONIZED (BEAKER) (test iwxx=877) 1.10 mmol/L 1.12-1.27 PH, BLOOD (BEAKER) (test rqhb=5781) 7.39 COMPREHENSIVE METABOLIC [id number] 04:56:00 Test Item Value Reference Range Comments TOTAL PROTEIN (BEAKER) 6.2 gm/dL 6.0-8.3 Specimen slightly (test sjan=688) hemolyzed ALBUMIN (BEAKER) (test 3.3 g/dL 3.5-5.0 Specimen slightly lveh=6509) hemolyzed ALKALINE PHOSPHATASE 98 U/L 40-150 (BEAKER) (test zwjy=006) BILIRUBIN TOTAL (BEAKER) 0.5 mg/dL 0.2-1.2 Specimen slightly (test xghd=555) hemolyzed SODIUM (BEAKER) (test 134 meq/L 136-145 ysgt=343) POTASSIUM (BEAKER) (test 3.4 meq/L 3.5-5.1 Specimen slightly alnd=687) hemolyzed CHLORIDE (BEAKER) (test 97 meq/L 98-107 rkwf=271) CO2 (BEAKER) (test 25 meq/L 22-29 twfh=812) BLOOD UREA NITROGEN 80 mg/dL 7-21 (BEAKER) (test nsew=440) CREATININE (BEAKER) (test 3.15 mg/dL 0.57-1.25 Specimen slightly pxbj=561) hemolyzed GLUCOSE RANDOM (BEAKER) 221 mg/dL 70-105 (test csqd=770) CALCIUM (BEAKER) (test 8.9 mg/dL 8.4-10.2 avzz=881) AST (SGOT) (BEAKER) (test 17 U/L 5-34 Specimen slightly dgto=810) hemolyzed ALT (SGPT) (BEAKER) (test 10 U/L 6-55 Specimen slightly tgnw=805) hemolyzed EGFR (BEAKER) (test 14 mL/min/1.73 sq m ESTIMATED GFR IS NOT huls=6901) ACCURATE CREATININE CLEARANCE IN PREDICTING GLOMERULAR FILTRATION RATE. ESTIMATED GFR IS NOT APPLICABLE FOR DIALYSIS PATIENTS. [id number] 04:52:00 Test Item Value Reference Range Comments MAGNESIUM (BEAKER) (test 2.0 mg/dL 1.6-2.6 Specimen slightly hemolyzed giyr=323) [id number] 04:52:00 Test Item Value Reference Range Comments PHOSPHORUS (BEAKER) (test 3.5 mg/dL 2.3-4.7 Specimen slightly hemolyzed ohbl=104) LIPID [id number] 04:52:00 Test Item Value Reference Range Comments TRIGLYCERIDES (BEAKER) (test 133 mg/dL Specimen slightly hemolyzed zrnw=844) CHOLESTEROL (BEAKER) (test 117 mg/dL Specimen slightly hemolyzed oahn=703) HDL CHOLESTEROL (BEAKER) (test 33 mg/dL oant=432) LDL CHOLESTEROL CALCULATED 57 mg/dL (BEAKER) (test kqjc=892) Triglyceride Reference Range: Low Risk <150 Borderline 150- 199 High Risk 200-499 Very High Risk >=500Cholesterol Reference Range: Low Risk <200 Borderline 200-239 High Risk > 240HDL Cholesterol Reference Range: Low Risk >=60 High Risk <40LDL Cholesterol Reference Range: Optimal <100 Near Optimal 100-129 Borderline 130-159 High 160-189 Very High >=190CBC W/PLT COUNT & AUTO [id number] 04:33:00 Test Item Value Reference Range Comments WHITE BLOOD CELL COUNT (BEAKER) (test qttj=408) 8.2 K/ L 3.5-10.5 RED BLOOD CELL COUNT (BEAKER) (test zete=064) 4.23 M/ L 3.93-5.22 HEMOGLOBIN (BEAKER) (test fzsz=364) 12.7 GM/DL 11.2-15.7 HEMATOCRIT (BEAKER) (test bmqa=261) 38.3 % 34.1-44.9 MEAN CORPUSCULAR VOLUME (BEAKER) (test lksk=179) 90.5 fL 79.4-94.8 MEAN CORPUSCULAR HEMOGLOBIN (BEAKER) (test 30.0 pg 25.6-32.2 ylfi=276) MEAN CORPUSCULAR HEMOGLOBIN CONC (BEAKER) (test 33.2 GM/DL 32.2-35.5 dsqm=211) RED CELL DISTRIBUTION WIDTH (BEAKER) (test 14.7 % 11.7-14.4 mact=762) PLATELET COUNT (BEAKER) (test mnro=868) 206 K/CU MM 150-450 MEAN PLATELET VOLUME (BEAKER) (test pwvs=521) 11.0 fL 9.4-12.3 NUCLEATED RED BLOOD CELLS (BEAKER) (test 0 /100 WBC 0-0 asvr=744) NEUTROPHILS RELATIVE PERCENT (BEAKER) (test 60 % btos=125) LYMPHOCYTES RELATIVE PERCENT (BEAKER) (test 29 % naah=515) MONOCYTES RELATIVE PERCENT (BEAKER) (test 8 % lcms=033) EOSINOPHILS RELATIVE PERCENT (BEAKER) (test 2 % xtbq=225) BASOPHILS RELATIVE PERCENT (BEAKER) (test 0 % alni=618) NEUTROPHILS ABSOLUTE COUNT (BEAKER) (test 4.96 K/ L 1.56-6.13 egwr=654) LYMPHOCYTES ABSOLUTE COUNT (BEAKER) (test 2.35 K/ L 1.18-3.74 knvu=041) MONOCYTES ABSOLUTE COUNT (BEAKER) (test 0.65 K/ L 0.24-0.36 cuhr=843) EOSINOPHILS ABSOLUTE COUNT (BEAKER) (test 0.18 K/ L 0.04-0.36 hwbw=067) BASOPHILS ABSOLUTE COUNT (BEAKER) (test 0.03 K/ L 0.01-0.08 rfte=488) IMMATURE GRANULOCYTES-RELATIVE PERCENT (BEAKER) 0 % 0-1 (test nave=1934) [id number] 22:22:00 Test Item Value Reference Range Comments PARTIAL THROMBOPLASTIN TIME (BEAKER) (test 86.6 seconds 22.5-36.0 hazq=184) POCT-GLUCOSE [id number] 17:14:00 Test Item Value Reference Range Comments POC-GLUCOSE METER (BEAKER) 158 mg/dL 70-110 TESTED AT [address] (test qtni=0894) [place] [address] [id number] 15:48:00 Test Item Value Reference Range Comments PARTIAL THROMBOPLASTIN TIME (BEAKER) (test 64.4 seconds 22.5-36.0 pkdg=616) POCT-GLUCOSE [id number] 12:41:00 Test Item Value Reference Range Comments POC-GLUCOSE METER (BEAKER) 275 mg/dL 70-110 TESTED AT [address] (test vtjf=4606) [place] [address] RAD, CHEST, 1 VIEW, NON [id number] 09:33:00Reason for exam:->chest painShould this be performed at the bedside?->YesFINAL REPORT Comparison: 08/14/2018 TECHNIQUE: Single view of the chest FINDINGS: Trace bilateral pleural effusions. Lungs otherwise grossly clear. Cardiac silhouette is prominent. Aortic calcifications are seen. No acute skeletal abnormality. Signed: Terry Sauer Verified Date/Time: 11/11/2018 09:33: 09 Reading Location: [address] Reading Room TROPONOLVIA [id number] 09:11: 00 Test Item Value Reference Range Comments TROPONIN I (BEAKER) (test xhbu=548) 0.38 ng/mL 0.00-0.03 Troponin I (TnI) levels [...] acidosis, acute neurological disease, and persistent tachyarrhythmia.POCT-GLUCOSE [id number] 08:57:00 Test Item Value Reference Range Comments POC-GLUCOSE METER (BEAKER) 321 mg/dL 70-110 Notified SOLITARIO BUENO/TESTED AT [facility] (test sjdb=7213) [address] [facility] [address] TROPONIN [id number] 08:29:00 Test Item Value Reference Range Comments TROPONIN I (BEAKER) (test wuqd=816) 0.60 ng/mL 0.00-0.03 Troponin I (TnI) levels [...] acute neurological disease, and persistent tachyarrhythmia.BASIC METABOLIC [id number] 08:26:00 Test Item Value Reference Range Comments SODIUM (BEAKER) (test 136 meq/L 136-145 upqv=288) POTASSIUM (BEAKER) (test 3.8 meq/L 3.5-5.1 Specimen slightly gejh=653) hemolyzed CHLORIDE (BEAKER) (test 96 meq/L 98-107 johe=342) CO2 (BEAKER) (test 30 meq/L 22-29 ceyy=960) BLOOD UREA NITROGEN 70 mg/dL 7-21 (BEAKER) (test agqi=826) CREATININE (BEAKER) (test 3.15 mg/dL 0.57-1.25 Specimen slightly ylfe=161) hemolyzed GLUCOSE RANDOM (BEAKER) 356 mg/dL 70-105 (test ozea=279) CALCIUM (BEAKER) (test 9.5 mg/dL 8.4-10.2 fzkh=565) EGFR (BEAKER) (test 14 mL/min/1.73 sq m ESTIMATED GFR IS NOT zumb=7301) ACCURATE CREATININE CLEARANCE IN PREDICTING GLOMERULAR FILTRATION RATE. ESTIMATED GFR IS NOT APPLICABLE FOR DIALYSIS PATIENTS. [id number] 08:22:00 Test Item Value Reference Range Comments MAGNESIUM (BEAKER) (test 2.2 mg/dL 1.6-2.6 Specimen slightly hemolyzed jcnt=178) HEPATIC FUNCTION [id number] 08:22:00 Test Item Value Reference Range Comments TOTAL PROTEIN (BEAKER) (test 7.3 gm/dL 6.0-8.3 Specimen slightly hemolyzed khnu=384) ALBUMIN (BEAKER) (test 3.9 g/dL 3.5-5.0 Specimen slightly hemolyzed wbad=0530) BILIRUBIN TOTAL (BEAKER) (test 0.5 mg/dL 0.2-1.2 Specimen slightly hemolyzed bsvs=108) BILIRUBIN DIRECT (BEAKER) (test 0.2 mg/dL 0.1-0.5 Specimen slightly hemolyzed emla=906) ALKALINE PHOSPHATASE (BEAKER) 129 U/L 40-150 (test xqci=627) AST (SGOT) (BEAKER) (test 18 U/L 5-34 Specimen slightly hemolyzed ibza=640) ALT (SGPT) (BEAKER) (test 11 U/L 6-55 Specimen slightly hemolyzed pbpd=595) B-TYPE NATRIURETIC FACTOR (BNP)2018-11-11 08:22:00 Test Item Value Reference Range Comments B-TYPE NATRIURETIC PEPTIDE (BEAKER) (test 344 pg/mL 0-100 wcnq=747) CBC W/PLT COUNT & AUTO [id number] 07:04:00 Test Item Value Reference Range Comments WHITE BLOOD CELL COUNT (BEAKER) (test csnq=455) 6.0 K/ L 3.5-10.5 RED BLOOD CELL COUNT (BEAKER) (test zcpj=601) 4.74 M/ L 3.93-5.22 HEMOGLOBIN (BEAKER) (test whca=487) 14.0 GM/DL 11.2-15.7 HEMATOCRIT (BEAKER) (test xfbe=762) 43.4 % 34.1-44.9 MEAN CORPUSCULAR VOLUME (BEAKER) (test pbxv=918) 91.6 fL 79.4-94.8 MEAN CORPUSCULAR HEMOGLOBIN (BEAKER) (test 29.5 pg 25.6-32.2 epfz=213) MEAN CORPUSCULAR HEMOGLOBIN CONC (BEAKER) (test 32.3 GM/DL 32.2-35.5 osqe=917) RED CELL DISTRIBUTION WIDTH (BEAKER) (test 14.6 % 11.7-14.4 ysxw=759) PLATELET COUNT (BEAKER) (test ggdc=261) 202 K/CU MM 150-450 MEAN PLATELET VOLUME (BEAKER) (test cppa=917) 11.3 fL 9.4-12.3 NUCLEATED RED BLOOD CELLS (BEAKER) (test 0 /100 WBC 0-0 uccz=587) NEUTROPHILS RELATIVE PERCENT (BEAKER) (test 56 % bofj=813) LYMPHOCYTES RELATIVE PERCENT (BEAKER) (test 32 % gbsm=751) MONOCYTES RELATIVE PERCENT (BEAKER) (test 9 % rfiu=964) EOSINOPHILS RELATIVE PERCENT (BEAKER) (test 3 % ezhg=944) BASOPHILS RELATIVE PERCENT (BEAKER) (test 0 % awpa=343) NEUTROPHILS ABSOLUTE COUNT (BEAKER) (test 3.38 K/ L 1.56-6.13 ntsb=477) LYMPHOCYTES ABSOLUTE COUNT (BEAKER) (test 1.90 K/ L 1.18-3.74 yzfc=008) MONOCYTES ABSOLUTE COUNT (BEAKER) (test 0.55 K/ L 0.24-0.36 qcll=175) EOSINOPHILS ABSOLUTE COUNT (BEAKER) (test 0.15 K/ L 0.04-0.36 zrqg=178) BASOPHILS ABSOLUTE COUNT (BEAKER) (test 0.02 K/ L 0.01-0.08 msqa=555) IMMATURE GRANULOCYTES-RELATIVE PERCENT (BEAKER) 1 % 0-1 (test ripz=4038) TSH/FREE T4 IF [id number] 06:39:00 Test Item Value Reference Range Comments THYROID STIMULATING HORMONE (BEAKER) (test 1.17 uIU/mL 0.35-4.94 daqm=017) [id number] 05:38:00 Test Item Value Reference Range Comments PROTIME (BEAKER) (test glru=293) 14.0 seconds 11.9-14.2 INR (BEAKER) (test bdde=906) 1.1 <=5.9 PARTIAL THROMBOPLASTIN TIME (BEAKER) (test 37.2 seconds 22.5-36.0 gzth=088) Effective 07/18/2018: PT Reference Range ChangeNew: 11.9-14.2 Previous: 11.7- 14.7RECOMMENDED COUMADIN/WARFARIN INR THERAPY RANGESSTANDARD DOSE: 2.0-3.0 Includes: PROPHYLAXIS for venous thrombosis, systemic embolization; TREATMENT for venous thrombosis and/or pulmonary embolus.HIGH RISK: Target INR is2.5-3.5 for patients wiht mechanical heart valves.POCT-GLUCOSE [id number] 12:11:00 Test Item Value Reference Range Comments POC-GLUCOSE METER (BEAKER) 111 mg/dL 70-[address] [facility] [address] [facility] (test aynr=5890) [facility] [address] CBC W/PLT COUNT & AUTO [id number] 10:11:00 Test Item Value Reference Range Comments WHITE BLOOD CELL COUNT 4.7 K/ L 3.5-10.5 (BEAKER) (test bcbr=576) RED BLOOD CELL COUNT (BEAKER) 3.14 M/ L 3.93-5.22 (test mlmu=172) HEMOGLOBIN (BEAKER) (test 10.1 GM/DL 11.2-15.7 kihk=452) HEMATOCRIT (BEAKER) (test 34.0 % 34.1-44.9 efkt=176) MEAN CORPUSCULAR VOLUME 108.3 fL 79.4-94.8 Discordant results compared (BEAKER) (test fynj=283) to previous result; clinical correlation required. MEAN CORPUSCULAR HEMOGLOBIN 32.2 pg 25.6-32.2 (BEAKER) (test waxw=905) MEAN CORPUSCULAR HEMOGLOBIN 29.7 GM/DL 32.2-35.5 CONC (BEAKER) (test slhq=848) RED CELL DISTRIBUTION WIDTH 18.5 % 11.7-14.4 (BEAKER) (test ilmy=243) PLATELET COUNT (BEAKER) (test 186 K/CU MM 150-450 wmjq=333) MEAN PLATELET VOLUME (BEAKER) 9.5 fL 9.4-12.3 (test zomw=434) NUCLEATED RED BLOOD CELLS 0 /100 WBC 0-0 (BEAKER) (test wwgp=187) NEUTROPHILS RELATIVE PERCENT 67 % (BEAKER) (test arqz=125) LYMPHOCYTES RELATIVE PERCENT 14 % (BEAKER) (test gjtt=208) MONOCYTES RELATIVE PERCENT 14 % (BEAKER) (test ugky=931) EOSINOPHILS RELATIVE PERCENT 3 % (BEAKER) (test yxec=457) BASOPHILS RELATIVE PERCENT 1 % (BEAKER) (test bgoa=868) NEUTROPHILS ABSOLUTE COUNT 3.16 K/ L 1.56-6.13 (BEAKER) (test fdxi=850) LYMPHOCYTES ABSOLUTE COUNT 0.67 K/ L 1.18-3.74 (BEAKER) (test nymi=656) MONOCYTES ABSOLUTE COUNT 0.65 K/ L 0.24-0.36 (BEAKER) (test nbbm=581) EOSINOPHILS ABSOLUTE COUNT 0.15 K/ L 0.04-0.36 (BEAKER) (test iyfz=409) BASOPHILS ABSOLUTE COUNT 0.03 K/ L 0.01-0.08 (BEAKER) (test fpei=822) IMMATURE 1 % 0-1 GRANULOCYTES-RELATIVE PERCENT (BEAKER) (test fbsy=2313) POCT-GLUCOSE [id number] 07:46:00 Test Item Value Reference Range Comments POC-GLUCOSE METER (BEAKER) 79 mg/dL 70-110 TESTED AT [address] (test frgz=8909) [facility] [address] BASIC METABOLIC [id number] 06:22:00 Test Item Value Reference Range Comments SODIUM (BEAKER) (test 136 meq/L 136-145 zbok=354) POTASSIUM (BEAKER) (test 4.0 meq/L 3.5-5.1 osvm=559) CHLORIDE (BEAKER) (test 100 meq/L 98-107 qmnn=671) CO2 (BEAKER) (test 26 meq/L 22-29 kcgf=488) BLOOD UREA NITROGEN 55 mg/dL 7-21 (BEAKER) (test oenz=245) CREATININE (BEAKER) (test 2.87 mg/dL 0.57-1.25 fdni=779) GLUCOSE RANDOM (BEAKER) 79 mg/dL 70-105 (test rmsh=115) CALCIUM (BEAKER) (test 8.6 mg/dL 8.4-10.2 stkw=556) EGFR (BEAKER) (test 16 mL/min/1.73 sq m ESTIMATED GFR IS NOT xeet=8479) ACCURATE CREATININE CLEARANCE IN PREDICTING GLOMERULAR FILTRATION RATE. ESTIMATED GFR IS NOT APPLICABLE FOR DIALYSIS PATIENTS. POCT-GLUCOSE [id number] 20:51:00 Test Item Value Reference Range Comments POC-GLUCOSE METER (BEAKER) 176 mg/dL 70-110 TESTED AT [address] (test vcjc=6320) [place] [id number] POCT-GLUCOSE [id number] 18:25:00 Test Item Value Reference Range Comments POC-GLUCOSE METER (BEAKER) 84 mg/dL 70-110 TESTED AT [address] (test ybhr=1168) [place] [address] POCT-GLUCOSE [id number] 12:54:00 Test Item Value Reference Range Comments POC-GLUCOSE METER (BEAKER) 111 mg/dL 70-110 TESTED AT [address] (test gqwm=3395) [place] [address] POCT-GLUCOSE [id number] 08:25:00 Test Item Value Reference Range Comments POC-GLUCOSE METER (BEAKER) 105 mg/dL 70-110 TESTED AT [address] (test ogzi=8133) [place] [id number] BASIC METABOLIC [id number] 06:26:00 Test Item Value Reference Range Comments SODIUM (BEAKER) (test 137 meq/L 136-145 ypko=688) POTASSIUM (BEAKER) (test 3.9 meq/L 3.5-5.1 cevd=064) CHLORIDE (BEAKER) (test 100 meq/L 98-107 kxbw=966) CO2 (BEAKER) (test 28 meq/L 22-29 jwrt=885) BLOOD UREA NITROGEN 53 mg/dL 7-21 (BEAKER) (test dzrq=262) CREATININE (BEAKER) (test 3.07 mg/dL 0.57-1.25 xbgk=995) GLUCOSE RANDOM (BEAKER) 71 mg/dL 70-105 (test gmwj=682) CALCIUM (BEAKER) (test 8.6 mg/dL 8.4-10.2 oduu=174) EGFR (BEAKER) (test 15 mL/min/1.73 sq m ESTIMATED GFR IS NOT xlbf=4020) ACCURATE CREATININE CLEARANCE IN PREDICTING GLOMERULAR FILTRATION RATE. ESTIMATED GFR IS NOT APPLICABLE FOR DIALYSIS PATIENTS. POCT-GLUCOSE [id number] 04:25:00 Test Item Value Reference Range Comments POC-GLUCOSE METER (BEAKER) 81 mg/dL 70-110 TESTED AT [address] (test soya=1948) [facility] [address] POCT-GLUCOSE [id number] 21:58:00 Test Item Value Reference Range Comments POC-GLUCOSE METER (BEAKER) 164 mg/dL 70-110 TESTED AT [address] (test pqfl=9619) [facility] [address] POCT-GLUCOSE [id number] 18:38:00 Test Item Value Reference Range Comments POC-GLUCOSE METER (BEAKER) 98 mg/dL 70-110 TESTED AT [address] (test fxkg=7094) [facility] [address] POCT-GLUCOSE [id number] 13:14:00 Test Item Value Reference Range Comments POC-GLUCOSE METER (BEAKER) 105 mg/dL 70-110 TESTED AT [address] (test tind=1840) [facility] [address] POCT-GLUCOSE [id number] 08:12:00 Test Item Value Reference Range Comments POC-GLUCOSE METER (BEAKER) 115 mg/dL 70-110 TESTED AT [address] (test vinj=2690) [facility] [address] BASIC METABOLIC [id number] 07:37:00 Test Item Value Reference Range Comments SODIUM (BEAKER) (test 136 meq/L 136-145 blhe=645) POTASSIUM (BEAKER) (test 3.7 meq/L 3.5-5.1 wvei=791) CHLORIDE (BEAKER) (test 98 meq/L 98-107 chku=785) CO2 (BEAKER) (test 28 meq/L 22-29 shgk=316) BLOOD UREA NITROGEN 54 mg/dL 7-21 (BEAKER) (test jyjo=276) CREATININE (BEAKER) (test 3.37 mg/dL 0.57-1.25 xjek=758) GLUCOSE RANDOM (BEAKER) 85 mg/dL 70-105 (test ebkd=078) CALCIUM (BEAKER) (test 8.5 mg/dL 8.4-10.2 gfvs=146) EGFR (BEAKER) (test 13 mL/min/1.73 sq m ESTIMATED GFR IS NOT bjhs=7504) ACCURATE CREATININE CLEARANCE IN PREDICTING GLOMERULAR FILTRATION RATE. ESTIMATED GFR IS NOT APPLICABLE FOR DIALYSIS PATIENTS. POCT-GLUCOSE [id number] 07:22:00 Test Item Value Reference Range Comments POC-GLUCOSE METER (BEAKER) 128 mg/dL 70-110 TESTED AT [address] (test rmch=8026) [place] [id number] POCT-GLUCOSE [id number] 04:05:00 Test Item Value Reference Range Comments POC-GLUCOSE METER (BEAKER) 95 mg/dL 70-110 TESTED AT [address] (test xdgx=6064) [place] [address] POCT-GLUCOSE [id number] 04:05:00 Test Item Value Reference Range Comments POC-GLUCOSE METER (BEAKER) 68 mg/dL 70-110 TESTED AT [address] (test dtgh=0838) [place] [address] POCT-GLUCOSE [id number] 04:05:00 Test Item Value Reference Range Comments POC-GLUCOSE METER (BEAKER) 52 mg/dL 70-110 TESTED AT [address] (test czde=7904) [place] [address] POCT-GLUCOSE [id number] 22:26:00 Test Item Value Reference Range Comments POC-GLUCOSE METER (BEAKER) 132 mg/dL 70-110 TESTED AT [address] (test znjc=4905) [place] [address] POCT-GLUCOSE [id number] 19:58:00 Test Item Value Reference Range Comments POC-GLUCOSE METER (BEAKER) 134 mg/dL 70-110 TESTED AT [address] (test berr=4667) [place] [address] POCT-GLUCOSE [id number] 13:11:00 Test Item Value Reference Range Comments POC-GLUCOSE METER (BEAKER) 148 mg/dL 70-110 TESTED AT [address] (test wwqs=4652) [place] [address] POCT-GLUCOSE [id number] 12:30:00 Test Item Value Reference Range Comments POC-GLUCOSE METER (BEAKER) 183 mg/dL 70-110 TESTED AT [address] (test adra=6631) [place] [address] CBC W/PLT COUNT & AUTO [id number] 10:37:00 Test Item Value Reference Range Comments WHITE BLOOD CELL COUNT (BEAKER) (test cdro=507) 7.4 K/ L 3.5-10.5 RED BLOOD CELL COUNT (BEAKER) (test tapl=180) 3.03 M/ L 3.93-5.22 HEMOGLOBIN (BEAKER) (test nddj=688) 9.5 GM/DL 11.2-15.7 HEMATOCRIT (BEAKER) (test rjvo=193) 31.4 % 34.1-44.9 MEAN CORPUSCULAR VOLUME (BEAKER) (test zzwy=577) 103.6 fL 79.4-94.8 MEAN CORPUSCULAR HEMOGLOBIN (BEAKER) (test 31.4 pg 25.6-32.2 gouq=365) MEAN CORPUSCULAR HEMOGLOBIN CONC (BEAKER) (test 30.3 GM/DL 32.2-35.5 vhav=440) RED CELL DISTRIBUTION WIDTH (BEAKER) (test 18.8 % 11.7-14.4 iaii=117) PLATELET COUNT (BEAKER) (test hcfh=362) 205 K/CU MM 150-450 MEAN PLATELET VOLUME (BEAKER) (test vops=031) 9.8 fL 9.4-12.3 NUCLEATED RED BLOOD CELLS (BEAKER) (test 0 /100 WBC 0-0 ebro=932) NEUTROPHILS RELATIVE PERCENT (BEAKER) (test 70 % btnt=097) LYMPHOCYTES RELATIVE PERCENT (BEAKER) (test 11 % imnd=262) MONOCYTES RELATIVE PERCENT (BEAKER) (test 15 % wlvs=348) EOSINOPHILS RELATIVE PERCENT (BEAKER) (test 2 % sjsp=317) BASOPHILS RELATIVE PERCENT (BEAKER) (test 0 % tpss=684) NEUTROPHILS ABSOLUTE COUNT (BEAKER) (test 5.19 K/ L 1.56-6.13 xkge=015) LYMPHOCYTES ABSOLUTE COUNT (BEAKER) (test 0.82 K/ L 1.18-3.74 fnci=978) MONOCYTES ABSOLUTE COUNT (BEAKER) (test 1.13 K/ L 0.24-0.36 fqvg=601) EOSINOPHILS ABSOLUTE COUNT (BEAKER) (test 0.14 K/ L 0.04-0.36 cmhn=140) BASOPHILS ABSOLUTE COUNT (BEAKER) (test 0.03 K/ L 0.01-0.08 vdeb=255) IMMATURE GRANULOCYTES-RELATIVE PERCENT (BEAKER) 1 % 0-1 (test hbcn=2095) POCT-GLUCOSE [id number] 08:09:00 Test Item Value Reference Range Comments POC-GLUCOSE METER (BEAKER) 99 mg/dL 70-110 TESTED AT [address] (test edfl=2120) [facility] [address] BASIC METABOLIC [id number] 05:41:00 Test Item Value Reference Range Comments SODIUM (BEAKER) (test 136 meq/L 136-145 nwbc=779) POTASSIUM (BEAKER) (test 4.1 meq/L 3.5-5.1 ikot=367) CHLORIDE (BEAKER) (test 99 meq/L 98-107 icaw=055) CO2 (BEAKER) (test 29 meq/L 22-29 sgbc=538) BLOOD UREA NITROGEN 46 mg/dL 7-21 (BEAKER) (test fcha=846) CREATININE (BEAKER) (test 3.01 mg/dL 0.57-1.25 kgub=908) GLUCOSE RANDOM (BEAKER) 107 mg/dL 70-105 (test pyub=815) CALCIUM (BEAKER) (test 8.5 mg/dL 8.4-10.2 pczf=399) EGFR (BEAKER) (test 15 mL/min/1.73 sq m ESTIMATED GFR IS NOT phja=8644) ACCURATE CREATININE CLEARANCE IN PREDICTING GLOMERULAR FILTRATION RATE. ESTIMATED GFR IS NOT APPLICABLE FOR DIALYSIS PATIENTS. POCT-GLUCOSE [id number] 21:42:00 Test Item Value Reference Range Comments POC-GLUCOSE METER (BEAKER) 171 mg/dL 70-110 TESTED AT [address] (test oywn=0912) [facility] [address] POCT-GLUCOSE [id number] 18:03:00 Test Item Value Reference Range Comments POC-GLUCOSE METER (BEAKER) 123 mg/dL 70-110 TESTED AT [address] (test lvfq=9701) [facility] [address] POCT-GLUCOSE [id number] 12:52:00 Test Item Value Reference Range Comments POC-GLUCOSE METER (BEAKER) 167 mg/dL 70-110 TESTED AT [address] (test ilzk=9728) [facility] [address] POCT-GLUCOSE [id number] 09:05:00 Test Item Value Reference Range Comments POC-GLUCOSE METER (BEAKER) 128 mg/dL 70-110 TESTED AT [address] (test nwtg=2105) [facility] [address] CT, PELVIS, WO [id number] 08:42:00FINAL REPORT CT pelvis without contrast HISTORY: [...] MDReport Verified Date/Time: 08/16/2018 08:42:53 Reading Location: [facility] Radiology Reading Room BASIC METABOLIC [id number] 05:58:00 Test Item Value Reference Range Comments SODIUM (BEAKER) (test 137 meq/L 136-145 gorw=469) POTASSIUM (BEAKER) (test 4.2 meq/L 3.5-5.1 ellj=999) CHLORIDE (BEAKER) (test 100 meq/L 98-107 mrwn=974) CO2 (BEAKER) (test 28 meq/L 22-29 vyjl=408) BLOOD UREA NITROGEN 48 mg/dL 7-21 (BEAKER) (test wouc=134) CREATININE (BEAKER) (test 2.88 mg/dL 0.57-1.25 bnag=369) GLUCOSE RANDOM (BEAKER) 115 mg/dL 70-105 (test cohi=071) CALCIUM (BEAKER) (test 8.7 mg/dL 8.4-10.2 nxiw=125) EGFR (BEAKER) (test 16 mL/min/1.73 sq m ESTIMATED GFR IS NOT yddy=9447) ACCURATE CREATININE CLEARANCE IN PREDICTING GLOMERULAR FILTRATION RATE. ESTIMATED GFR IS NOT APPLICABLE FOR DIALYSIS PATIENTS. POCT-GLUCOSE [id number] 03:05:00 Test Item Value Reference Range Comments POC-GLUCOSE METER (BEAKER) 157 mg/dL 70-110 TESTED AT [address] (test chji=5356) [place] [address] POCT-GLUCOSE [id number] 20:57:00 Test Item Value Reference Range Comments POC-GLUCOSE METER (BEAKER) 106 mg/dL 70-110 TESTED AT [address] (test lbor=0311) [place] [address] POCT-GLUCOSE [id number] 18:13:00 Test Item Value Reference Range Comments POC-GLUCOSE METER (BEAKER) 237 mg/dL 70-110 TESTED AT [address] (test wusr=9912) [place] [address] POCT-GLUCOSE [id number] 13:47:00 Test Item Value Reference Range Comments POC-GLUCOSE METER (BEAKER) 172 mg/dL 70-110 TESTED AT [address] (test kxqb=6440) [place] [address] POCT-GLUCOSE [id number] 08:50:00 Test Item Value Reference Range Comments POC-GLUCOSE METER (BEAKER) 155 mg/dL 70-110 TESTED AT [address] (test ujel=3307) [place] [address] BASIC METABOLIC [id number] 06:36:00 Test Item Value Reference Range Comments SODIUM (BEAKER) (test 134 meq/L 136-145 eunl=849) POTASSIUM (BEAKER) (test 3.6 meq/L 3.5-5.1 gotk=080) CHLORIDE (BEAKER) (test 100 meq/L 98-107 cgbw=857) CO2 (BEAKER) (test 26 meq/L 22-29 wveb=594) BLOOD UREA NITROGEN 47 mg/dL 7-21 (BEAKER) (test omtg=148) CREATININE (BEAKER) (test 3.21 mg/dL 0.57-1.25 ihkg=011) GLUCOSE RANDOM (BEAKER) 139 mg/dL 70-105 (test mzsk=551) CALCIUM (BEAKER) (test 8.3 mg/dL 8.4-10.2 jchh=360) EGFR (BEAKER) (test 14 mL/min/1.73 sq m ESTIMATED GFR IS NOT wvpb=2992) ACCURATE CREATININE CLEARANCE IN PREDICTING GLOMERULAR FILTRATION RATE. ESTIMATED GFR IS NOT APPLICABLE FOR DIALYSIS PATIENTS. POCT-GLUCOSE [id number] 22:53:00 Test Item Value Reference Range Comments POC-GLUCOSE METER (BEAKER) 231 mg/dL 70-[address] [facility] [address] (test bibf=2586) [facility] [address] POCT-GLUCOSE [id number] 17:51:00 Test Item Value Reference Range Comments POC-GLUCOSE METER (BEAKER) 169 mg/dL 70-110 TESTED AT [address] (test idwy=9374) [place] [address] RESPIRATORY PANEL [id number] 15:45:00 Test Item Value Reference Range Comments HUMAN METAPNEUMOVIRUS (BEAKER) (test Not detected Not detected, Equivocal diny=6966) RHINOVIRUS (BEAKER) (test wuyi=8338) Not detected Not detected, Equivocal INFLUENZA A (BEAKER) (test zhcm=2175) Not detected Not detected, Equivocal INFLUENZA A (NO SUBTYPE) (test Not detected, Equivocal vrlh=1361) INFLUENZA A SUBTYPE H1 (BEAKER) (test Not detected, Equivocal vwpj=8749) INFLUENZA A SUBTYPE H3 (BEAKER) (test Not detected, Equivocal safl=7408) INFLUENZA A SUBTYPE H1-2009 (BEAKER) Not detected, Equivocal (test gvwe=5766) INFLUENZA B (BEAKER) (test atan=0324) Not detected Not detected, Equivocal RESPIRATORY SYNCYTIAL VIRUS (BEAKER) Not detected Not detected, Equivocal (test unxw=9634) PARAINFLUENZA VIRUS 1 (BEAKER) (test Not detected Not detected, Equivocal kabl=9726) PARAINFLUENZA VIRUS 2 (BEAKER) (test Not detected Not detected, Equivocal jfpo=0652) PARAINFLUENZA VIRUS 3 (BEAKER) (test Not detected Not detected, Equivocal gfph=3095) PARAINFLUENZA VIRUS 4 (BEAKER) (test Not detected Not detected, Equivocal iizx=8766) ADENOVIRUS (BEAKER) (test jmeu=5544) Not detected Not detected, Equivocal CORONAVIRUS 229E (BEAKER) (test Not detected Not detected, Equivocal frhv=6816) CORONAVIRUS HKU1 (BEAKER) (test Not detected Not detected, Equivocal nolg=1432) CORONAVIRUS NL63 (BEAKER) (test Not detected Not detected, Equivocal brkd=5843) CORONAVIRUS OC43 (BEAKER) (test Not detected Not detected, Equivocal zkzf=1165) BORDETELLA PERTUSSIS (BEAKER) (test Not detected Not detected, Equivocal iqir=3310) CHLAMYDOPHILA PNEUMONIAE (BEAKER) (test Not detected Not detected, Equivocal utuh=9792) MYCOPLASMA PNEUMONIAE (BEAKER) (test Not detected Not detected, Equivocal uzwa=4360) Other viruses and bacteria not targeted by this PCR panel cannot be excluded; therefore clinical correlation and follow up of serology, culture results, and other molecular studies is required. The results are not intended to be used as the sole means for clinical diagnosis or patient management decisions. This sample was tested at the [facility] Molecular Diagnostics Laboratory using the CoolirisArray Respiratory Panel. It is FDA cleared and has been verified and approved by the [facility] Molecular Diagnostics Laboratory for clinical use on nasopharyngeal swab specimens.The performance of the FilmArrayRP has not been established in individuals who received influenza vaccine. Recent administration ofa nasal influenza vaccine may cause false positive results for Influenza A and/orInfluenza B.URINALYSIS W/ REFLEX URINE [id number] 12:32 :00 Test Item Value Reference Range Comments COLOR (BEAKER) (test euqp=422) Light Yellow CLARITY (BEAKER) (test sszt=688) Hazy SPECIFIC GRAVITY UA (BEAKER) (test ioqr=601) 1.009 1.001-1.035 PH UA (BEAKER) (test hsii=237) 6.0 5.0-8.0 PROTEIN UA (BEAKER) (test exjc=622) 30 mg/dL Negative GLUCOSE UA (BEAKER) (test sduc=580) Negative Negative KETONES UA (BEAKER) (test ijwq=034) Negative Negative BILIRUBIN UA (BEAKER) (test sxvo=986) Negative Negative BLOOD UA (BEAKER) (test fccd=400) Small Negative NITRITE UA (BEAKER) (test qqlt=344) Negative Negative LEUKOCYTE ESTERASE UA (BEAKER) (test dmro=708) Large Negative UROBILINOGEN UA (BEAKER) (test oseo=562) 0.2 mg/dL 0.2-1.0 RBC UA (BEAKER) (test wyxs=662) 0 /HPF WBC UA (BEAKER) (test wruu=753) > /HPF BACTERIA (BEAKER) (test qfcr=596) Many SQUAMOUS EPITHELIAL (BEAKER) (test jkjx=847) < /HPF RENAL EPITHELIAL (BEAKER) (test wffs=0411) 15 /HPF WBC CASTS (BEAKER) (test lvmy=9340) 14 /LPF SOURCE(BEAKER) (test vydd=1802) POCT-GLUCOSE [id number] 12:29:00 Test Item Value Reference Range Comments POC-GLUCOSE METER (BEAKER) 222 mg/dL 70-[address] [facility] [address] [facility] (test fiqi=8216) [facility] [address] CBC W/PLT COUNT & AUTO [id number] 10:12:00 Test Item Value Reference Range Comments WHITE BLOOD CELL COUNT (BEAKER) (test ashl=955) 11.6 K/ L 3.5-10.5 RED BLOOD CELL COUNT (BEAKER) (test yeou=659) 2.77 M/ L 3.93-5.22 HEMOGLOBIN (BEAKER) (test iaej=895) 8.7 GM/DL 11.2-15.7 HEMATOCRIT (BEAKER) (test aotf=743) 27.2 % 34.1-44.9 MEAN CORPUSCULAR VOLUME (BEAKER) (test srwo=092) 98.2 fL 79.4-94.8 MEAN CORPUSCULAR HEMOGLOBIN (BEAKER) (test 31.4 pg 25.6-32.2 uesx=081) MEAN CORPUSCULAR HEMOGLOBIN CONC (BEAKER) (test 32.0 GM/DL 32.2-35.5 izli=722) RED CELL DISTRIBUTION WIDTH (BEAKER) (test 17.4 % 11.7-14.4 hnki=360) PLATELET COUNT (BEAKER) (test bamx=064) 209 K/CU MM 150-450 MEAN PLATELET VOLUME (BEAKER) (test zpfv=856) 10.2 fL 9.4-12.3 NUCLEATED RED BLOOD CELLS (BEAKER) (test 1 /100 WBC 0-0 cnzi=674) (CELLAVISION MANUAL DIFF)2018-08-14 10:12:00 Test Item Value Reference Range Comments NEUTROPHILS - REL (CELLAVISION)(BEAKER) (test 86 % dhzp=9632) LYMPHOCYTES - REL (CELLAVISION)(BEAKER) (test 4 % ggvc=2535) MONOCYTES - REL (CELLAVISION)(BEAKER) (test 5 % upem=4332) EOSINOPHILS - REL (CELLAVISION)(BEAKER) (test 2 % vuph=3828) METAMYELOCYTES - REL (CELLAVISION)(BEAKER) (test 2 % 0-0 fjtl=0020) MYELOCYTES - REL (CELLAVISION)(BEAKER) (test 1 % 0-0 uzss=3582) NEUTROPHILS - ABS (CELLAVISION)(BEAKER) (test 9.98 K/ul 1.56-6.13 xros=7366) LYMPHOCYTES - ABS (CELLAVISION)(BEAKER) (test 0.46 K/ul 1.18-3.74 jeyl=8121) MONOCYTES - ABS (CELLAVISION)(BEAKER) (test 0.58 K/uL 0.24-0.36 ddiv=2372) EOSINOPHILS - ABS (CELLAVISION)(BEAKER) (test 0.23 K/uL 0.04-0.36 pfjb=6593) METAMYELOCYTES - ABS (CELLAVISION)(BEAKER) (test 0.23 K/uL 0.00-0.00 nyyh=1287) MYELOCYTES-ABS (CELLAVISION)(BEAKER) (test 0.12 K/uL 0.00-0.00 fzns=9577) TOTAL COUNTED (BEAKER) (test elsd=7392) 100 MANUAL NRBC PER 100 CELLS (BEAKER) (test 1 /100 WBC 0-0 jfik=3454) WBC MORPHOLOGY (BEAKER) (test akos=029) Normal PLT MORPHOLOGY (BEAKER) (test fmoi=307) Normal POLYCHROMATOPHILLIC RBCS(BEAKER) (test iudy=500) 1+ few HYPOCHROMIA (BEAKER) (test dfzp=002) 1+ few ARTIFACT (CELLAVISION)(BEAKER) (test jkmd=2679) Present PLATELET CONCENTRATION (CELLAVISION)(BEAKER) Adequate (test juek=3319) Received comment: User comments: Slide comments:RAD, CHEST, 1 VIEW, NON [id number] 09:50:00Reason for exam:->coughShould this be performed at the bedside ?->YesFINAL REPORT CLINICAL HISTORY: cough TECHNIQUE : 1 view of the chest. COMPARISON: 08/12/2018 IMPRESSION: Mild lung base pleural- parenchymal opacity is again seen. There is minimalright lung base opacity and blunting of the right costophrenic angle. The cardiomediastinal silhouette is magnified by technique. Cervical fusion hardware is partially imaged. Signed: Su Delarosaeport Verified Date/Time: 08/14/2018 09:50:21 Reading Location : [facility] Radiology Reading Room POCT-GLUCOSE [id number] 08:20:00 Test Item Value Reference Range Comments POC-GLUCOSE METER (BEAKER) 126 mg/dL 70-[address] [facility] [address] [facility] (test noto=9789) [facility] [address] COMPREHENSIVE METABOLIC [id number] 07:13:00 Test Item Value Reference Range Comments TOTAL PROTEIN (BEAKER) 5.5 gm/dL 6.0-8.3 (test aphw=472) ALBUMIN (BEAKER) (test 3.1 g/dL 3.5-5.0 rahk=6555) ALKALINE PHOSPHATASE 67 U/L 40-150 (BEAKER) (test apra=332) BILIRUBIN TOTAL (BEAKER) 0.6 mg/dL 0.2-1.2 (test tube=562) SODIUM (BEAKER) (test 135 meq/L 136-145 zuqu=631) POTASSIUM (BEAKER) (test 3.8 meq/L 3.5-5.1 bfxa=367) CHLORIDE (BEAKER) (test 99 meq/L 98-107 jebk=841) CO2 (BEAKER) (test 27 meq/L 22-29 pgyq=682) BLOOD UREA NITROGEN 45 mg/dL 7-21 (BEAKER) (test zuiz=046) CREATININE (BEAKER) (test 3.56 mg/dL 0.57-1.25 prkp=553) GLUCOSE RANDOM (BEAKER) 116 mg/dL 70-105 (test lgjp=923) CALCIUM (BEAKER) (test 8.5 mg/dL 8.4-10.2 nnrr=959) AST (SGOT) (BEAKER) (test 30 U/L 5-34 zwnn=866) ALT (SGPT) (BEAKER) (test 18 U/L 6-55 oifs=218) EGFR (BEAKER) (test 12 mL/min/1.73 sq m ESTIMATED GFR IS NOT iofr=2447) ACCURATE CREATININE CLEARANCE IN PREDICTING GLOMERULAR FILTRATION RATE. ESTIMATED GFR IS NOT APPLICABLE FOR DIALYSIS PATIENTS. [id number] 06:59:00 Test Item Value Reference Range Comments PHOSPHORUS (BEAKER) (test dyzk=143) 2.3 mg/dL 2.3-4.7 [id number] 06:59:00 Test Item Value Reference Range Comments MAGNESIUM (BEAKER) (test hvxz=887) 2.0 mg/dL 1.6-2.6 CALCIUM, [id number] 06:47:00 Test Item Value Reference Range Comments CALCIUM IONIZED (BEAKER) (test tbcw=574) 1.04 mmol/L 1.12-1.27 PH, BLOOD (BEAKER) (test zlxe=0810) 7.38 POCT-GLUCOSE [id number] 23:29:00 Test Item Value Reference Range Comments POC-GLUCOSE METER (BEAKER) 196 mg/dL 70-110 TESTED AT [address] (test mtkw=7080) [facility] [address] POCT-GLUCOSE [id number] 17:42:00 Test Item Value Reference Range Comments POC-GLUCOSE METER (BEAKER) 179 mg/dL 70-110 TESTED AT [address] (test ecbx=7128) [facility] [address] POCT-GLUCOSE [id number] 12:19:00 Test Item Value Reference Range Comments POC-GLUCOSE METER (BEAKER) 189 mg/dL 70-110 TESTED AT [address] (test iwak=5505) [facility] [address] POCT-GLUCOSE [id number] 08:34:00 Test Item Value Reference Range Comments POC-GLUCOSE METER (BEAKER) 119 mg/dL 70-[address] [facility] [address] (test ykbr=7899) [facility] [address] COMPREHENSIVE METABOLIC [id number] 02:54:00 Test Item Value Reference Range Comments TOTAL PROTEIN (BEAKER) 5.8 gm/dL 6.0-8.3 (test ngrw=759) ALBUMIN (BEAKER) (test 3.2 g/dL 3.5-5.0 ozkp=6400) ALKALINE PHOSPHATASE 65 U/L 40-150 (BEAKER) (test izst=224) BILIRUBIN TOTAL (BEAKER) 0.8 mg/dL 0.2-1.2 (test yqac=395) SODIUM (BEAKER) (test 134 meq/L 136-145 psrg=637) POTASSIUM (BEAKER) (test 3.6 meq/L 3.5-5.1 xlnq=354) CHLORIDE (BEAKER) (test 100 meq/L 98-107 wehf=453) CO2 (BEAKER) (test 25 meq/L 22-29 igtx=242) BLOOD UREA NITROGEN 43 mg/dL 7-21 (BEAKER) (test pgvp=587) CREATININE (BEAKER) (test 3.41 mg/dL 0.57-1.25 xjdr=949) GLUCOSE RANDOM (BEAKER) 90 mg/dL 70-105 (test esll=622) CALCIUM (BEAKER) (test 8.4 mg/dL 8.4-10.2 svgp=906) AST (SGOT) (BEAKER) (test 25 U/L 5-34 vpii=761) ALT (SGPT) (BEAKER) (test 16 U/L 6-55 laav=808) EGFR (BEAKER) (test 13 mL/min/1.73 sq m ESTIMATED GFR IS NOT wjun=0411) ACCURATE CREATININE CLEARANCE IN PREDICTING GLOMERULAR FILTRATION RATE. ESTIMATED GFR IS NOT APPLICABLE FOR DIALYSIS PATIENTS. [id number] 02:48:00 Test Item Value Reference Range Comments PHOSPHORUS (BEAKER) (test zdqg=348) 2.2 mg/dL 2.3-4.7 [id number] 02:48:00 Test Item Value Reference Range Comments MAGNESIUM (BEAKER) (test nepe=684) 1.5 mg/dL 1.6-2.6 CALCIUM, [id number] 02:32:00 Test Item Value Reference Range Comments CALCIUM IONIZED (BEAKER) (test zwkt=835) 0.93 mmol/L 1.12-1.27 PH, BLOOD (BEAKER) (test bpyc=7359) 7.53 CBC W/PLT COUNT & AUTO [id number] 02:31:00 Test Item Value Reference Range Comments WHITE BLOOD CELL COUNT (BEAKER) (test yfyh=280) 12.6 K/ L 3.5-10.5 RED BLOOD CELL COUNT (BEAKER) (test nlbz=199) 2.95 M/ L 3.93-5.22 HEMOGLOBIN (BEAKER) (test ncai=683) 9.3 GM/DL 11.2-15.7 HEMATOCRIT (BEAKER) (test kpjt=223) 29.5 % 34.1-44.9 MEAN CORPUSCULAR VOLUME (BEAKER) (test oujf=743) 100.0 fL 79.4-94.8 MEAN CORPUSCULAR HEMOGLOBIN (BEAKER) (test 31.5 pg 25.6-32.2 xkwr=688) MEAN CORPUSCULAR HEMOGLOBIN CONC (BEAKER) (test 31.5 GM/DL 32.2-35.5 rnjy=772) RED CELL DISTRIBUTION WIDTH (BEAKER) (test 17.2 % 11.7-14.4 bqsu=614) PLATELET COUNT (BEAKER) (test eirl=573) 198 K/CU MM 150-450 MEAN PLATELET VOLUME (BEAKER) (test emwh=458) 9.9 fL 9.4-12.3 NUCLEATED RED BLOOD CELLS (BEAKER) (test 2 /100 WBC 0-0 gfvm=535) NEUTROPHILS RELATIVE PERCENT (BEAKER) (test 72 % rqnd=012) LYMPHOCYTES RELATIVE PERCENT (BEAKER) (test 12 % gvur=898) MONOCYTES RELATIVE PERCENT (BEAKER) (test 12 % ghcx=960) EOSINOPHILS RELATIVE PERCENT (BEAKER) (test 1 % joey=146) BASOPHILS RELATIVE PERCENT (BEAKER) (test 0 % pvhp=121) NEUTROPHILS ABSOLUTE COUNT (BEAKER) (test 9.10 K/ L 1.56-6.13 ehap=361) LYMPHOCYTES ABSOLUTE COUNT (BEAKER) (test 1.47 K/ L 1.18-3.74 bdlb=448) MONOCYTES ABSOLUTE COUNT (BEAKER) (test 1.48 K/ L 0.24-0.36 xlhy=296) EOSINOPHILS ABSOLUTE COUNT (BEAKER) (test 0.18 K/ L 0.04-0.36 awsw=877) BASOPHILS ABSOLUTE COUNT (BEAKER) (test 0.04 K/ L 0.01-0.08 rssr=081) IMMATURE GRANULOCYTES-RELATIVE PERCENT (BEAKER) 3 % 0-1 (test mjnr=6163) POCT-GLUCOSE [id number] 02:17:00 Test Item Value Reference Range Comments POC-GLUCOSE METER (BEAKER) 97 mg/dL 70-110 TESTED AT [address] (test ppsn=9377) [facility] [address] POCT-GLUCOSE [id number] 21:04:00 Test Item Value Reference Range Comments POC-GLUCOSE METER (BEAKER) 147 mg/dL 70-110 TESTED AT [address] (test fcoc=5436) [facility] [address] POCT-GLUCOSE [id number] 17:42:00 Test Item Value Reference Range Comments POC-GLUCOSE METER (BEAKER) 172 mg/dL 70-110 TESTED AT [address] (test cfqb=7083) [facility] [address] POCT-GLUCOSE [id number] 12:05:00 Test Item Value Reference Range Comments POC-GLUCOSE METER (BEAKER) 124 mg/dL 70-110 TESTED AT [address] (test lncf=4714) [facility] [address] POCT-GLUCOSE [id number] 07:37:00 Test Item Value Reference Range Comments POC-GLUCOSE METER (BEAKER) 94 mg/dL 70-110 TESTED AT [address] (test upmr=1684) [place] [id number] RAD, CHEST, 1 VIEW, NON [id number] 04:50:00Reason for exam:->SOBShould this be performed at [...] Verified Date/Time: 08/12/2018 04:50: 01 Reading Location: [address] Reading Room POCT-GLUCOSE [id number] 04:39:00 Test Item Value Reference Range Comments POC-GLUCOSE METER (BEAKER) 107 mg/dL 70-[address] [facility] [address] [facility] (test jycv=3096) [facility] [address] COMPREHENSIVE METABOLIC [id number] 04:16:00 Test Item Value Reference Range Comments TOTAL PROTEIN (BEAKER) 5.6 gm/dL 6.0-8.3 (test sjfy=917) ALBUMIN (BEAKER) (test 3.2 g/dL 3.5-5.0 mqgv=8970) ALKALINE PHOSPHATASE 66 U/L 40-150 (BEAKER) (test ythl=773) BILIRUBIN TOTAL (BEAKER) 0.6 mg/dL 0.2-1.2 (test zzog=838) SODIUM (BEAKER) (test 136 meq/L 136-145 uapf=567) POTASSIUM (BEAKER) (test 4.0 meq/L 3.5-5.1 wbgm=463) CHLORIDE (BEAKER) (test 102 meq/L 98-107 nkxe=425) CO2 (BEAKER) (test 25 meq/L 22-29 ybqj=738) BLOOD UREA NITROGEN 38 mg/dL 7-21 (BEAKER) (test beum=429) CREATININE (BEAKER) (test 3.33 mg/dL 0.57-1.25 ntux=762) GLUCOSE RANDOM (BEAKER) 105 mg/dL 70-105 (test ulvi=055) CALCIUM (BEAKER) (test 8.6 mg/dL 8.4-10.2 tawu=631) AST (SGOT) (BEAKER) (test 25 U/L 5-34 fzyw=919) ALT (SGPT) (BEAKER) (test 16 U/L 6-55 rmut=716) EGFR (BEAKER) (test 13 mL/min/1.73 sq m ESTIMATED GFR IS NOT qlwf=2831) ACCURATE CREATININE CLEARANCE IN PREDICTING GLOMERULAR FILTRATION RATE. ESTIMATED GFR IS NOT APPLICABLE FOR DIALYSIS PATIENTS. [id number] 04:11:00 Test Item Value Reference Range Comments PHOSPHORUS (BEAKER) (test smrv=690) 2.9 mg/dL 2.3-4.7 [id number] 04:11:00 Test Item Value Reference Range Comments MAGNESIUM (BEAKER) (test uwpk=192) 1.9 mg/dL 1.6-2.6 CBC W/PLT COUNT & AUTO [id number] 03:57:00 Test Item Value Reference Range Comments WHITE BLOOD CELL COUNT (BEAKER) (test qxhj=881) 12.6 K/ L 3.5-10.5 RED BLOOD CELL COUNT (BEAKER) (test yytc=447) 2.87 M/ L 3.93-5.22 HEMOGLOBIN (BEAKER) (test czcf=414) 9.0 GM/DL 11.2-15.7 HEMATOCRIT (BEAKER) (test nkav=061) 28.6 % 34.1-44.9 MEAN CORPUSCULAR VOLUME (BEAKER) (test niwr=146) 99.7 fL 79.4-94.8 MEAN CORPUSCULAR HEMOGLOBIN (BEAKER) (test 31.4 pg 25.6-32.2 wgkb=780) MEAN CORPUSCULAR HEMOGLOBIN CONC (BEAKER) (test 31.5 GM/DL 32.2-35.5 zuvh=970) RED CELL DISTRIBUTION WIDTH (BEAKER) (test 16.1 % 11.7-14.4 unei=842) PLATELET COUNT (BEAKER) (test yufd=916) 204 K/CU MM 150-450 MEAN PLATELET VOLUME (BEAKER) (test fyua=689) 10.5 fL 9.4-12.3 NUCLEATED RED BLOOD CELLS (BEAKER) (test 5 /100 WBC 0-0 eohl=185) NEUTROPHILS RELATIVE PERCENT (BEAKER) (test 77 % cfnd=569) LYMPHOCYTES RELATIVE PERCENT (BEAKER) (test 9 % igzm=202) MONOCYTES RELATIVE PERCENT (BEAKER) (test 11 % jtyn=714) EOSINOPHILS RELATIVE PERCENT (BEAKER) (test 2 % owah=927) BASOPHILS RELATIVE PERCENT (BEAKER) (test 0 % ygyj=969) NEUTROPHILS ABSOLUTE COUNT (BEAKER) (test 9.64 K/ L 1.56-6.13 xnyz=533) LYMPHOCYTES ABSOLUTE COUNT (BEAKER) (test 1.07 K/ L 1.18-3.74 mebd=264) MONOCYTES ABSOLUTE COUNT (BEAKER) (test 1.34 K/ L 0.24-0.36 tgbt=095) EOSINOPHILS ABSOLUTE COUNT (BEAKER) (test 0.19 K/ L 0.04-0.36 xjlo=322) BASOPHILS ABSOLUTE COUNT (BEAKER) (test 0.03 K/ L 0.01-0.08 ocsh=612) IMMATURE GRANULOCYTES-RELATIVE PERCENT (BEAKER) 2 % 0-1 (test oezl=4707) CALCIUM, [id number] 03:25:00 Test Item Value Reference Range Comments CALCIUM IONIZED (BEAKER) (test wask=897) 1.10 mmol/L 1.12-1.27 PH, BLOOD (BEAKER) (test lexp=0263) 7.43 POCT-GLUCOSE [id number] 00:03:00 Test Item Value Reference Range Comments POC-GLUCOSE METER (BEAKER) 122 mg/dL 70-110 TESTED AT [address] (test sxpq=9467) [place] [address] POCT-GLUCOSE [id number] 21:32:00 Test Item Value Reference Range Comments POC-GLUCOSE METER (BEAKER) 104 mg/dL 70-110 TESTED AT [address] (test mndo=2269) [place] [address] POCT-GLUCOSE [id number] 17:51:00 Test Item Value Reference Range Comments POC-GLUCOSE METER (BEAKER) 151 mg/dL 70-110 TESTED AT [address] (test vaxe=5213) [place] [address] BASIC METABOLIC [id number] 16:24:00 Test Item Value Reference Range Comments SODIUM (BEAKER) (test 133 meq/L 136-145 xyeb=521) POTASSIUM (BEAKER) (test 4.1 meq/L 3.5-5.1 Specimen slightly nivk=115) hemolyzed CHLORIDE (BEAKER) (test 101 meq/L 98-107 fxqh=159) CO2 (BEAKER) (test 26 meq/L 22-29 kdoa=720) BLOOD UREA NITROGEN 34 mg/dL 7-21 (BEAKER) (test pppj=598) CREATININE (BEAKER) (test 3.12 mg/dL 0.57-1.25 Specimen slightly dywq=070) hemolyzed GLUCOSE RANDOM (BEAKER) 167 mg/dL 70-105 (test osoq=994) CALCIUM (BEAKER) (test 8.4 mg/dL 8.4-10.2 fxkt=514) EGFR (BEAKER) (test 14 mL/min/1.73 sq m ESTIMATED GFR IS NOT aojp=5561) ACCURATE CREATININE CLEARANCE IN PREDICTING GLOMERULAR FILTRATION RATE. ESTIMATED GFR IS NOT APPLICABLE FOR DIALYSIS PATIENTS. [id number] 16:22:00 Test Item Value Reference Range Comments MAGNESIUM (BEAKER) (test 1.8 mg/dL 1.6-2.6 Specimen slightly hemolyzed poio=213) POCT-GLUCOSE [id number] 11:45:00 Test Item Value Reference Range Comments POC-GLUCOSE METER (BEAKER) 141 mg/dL 70-110 TESTED AT [address] (test wdbk=0237) [place] [address] POCT-GLUCOSE [id number] 07:51:00 Test Item Value Reference Range Comments POC-GLUCOSE METER (BEAKER) 112 mg/dL 70-110 TESTED AT [address] (test sltt=9343) [place] [address] BASIC METABOLIC [id number] 05:18:00 Test Item Value Reference Range Comments SODIUM (BEAKER) (test 135 meq/L 136-145 bbhb=882) POTASSIUM (BEAKER) (test 4.7 meq/L 3.5-5.1 Specimen moderately ykhs=066) hemolyzed CHLORIDE (BEAKER) (test 103 meq/L 98-107 xlnq=965) CO2 (BEAKER) (test 24 meq/L 22-29 fbxx=100) BLOOD UREA NITROGEN 26 mg/dL 7-21 (BEAKER) (test dhcd=848) CREATININE (BEAKER) (test 2.47 mg/dL 0.57-1.25 Specimen moderately pikb=114) hemolyzed GLUCOSE RANDOM (BEAKER) 101 mg/dL 70-105 (test sahq=971) CALCIUM (BEAKER) (test 8.8 mg/dL 8.4-10.2 ggvs=550) EGFR (BEAKER) (test 19 mL/min/1.73 sq m ESTIMATED GFR IS NOT utlf=6111) ACCURATE CREATININE CLEARANCE IN PREDICTING GLOMERULAR FILTRATION RATE. ESTIMATED GFR IS NOT APPLICABLE FOR DIALYSIS PATIENTS. [id number] 05:12:00 Test Item Value Reference Range Comments MAGNESIUM (BEAKER) (test 2.0 mg/dL 1.6-2.6 Specimen moderately hemolyzed eeqd=315) CBC W/PLT COUNT & AUTO [id number] 04:19:00 Test Item Value Reference Range Comments WHITE BLOOD CELL COUNT (BEAKER) (test vhvb=801) 14.3 K/ L 3.5-10.5 RED BLOOD CELL COUNT (BEAKER) (test objc=540) 3.03 M/ L 3.93-5.22 HEMOGLOBIN (BEAKER) (test dbxp=271) 9.4 GM/DL 11.2-15.7 HEMATOCRIT (BEAKER) (test xnrm=355) 29.2 % 34.1-44.9 MEAN CORPUSCULAR VOLUME (BEAKER) (test mwcs=035) 96.4 fL 79.4-94.8 MEAN CORPUSCULAR HEMOGLOBIN (BEAKER) (test 31.0 pg 25.6-32.2 xpej=501) MEAN CORPUSCULAR HEMOGLOBIN CONC (BEAKER) (test 32.2 GM/DL 32.2-35.5 xufl=052) RED CELL DISTRIBUTION WIDTH (BEAKER) (test 15.5 % 11.7-14.4 mull=342) PLATELET COUNT (BEAKER) (test uudy=454) 209 K/CU MM 150-450 MEAN PLATELET VOLUME (BEAKER) (test tsik=905) 10.4 fL 9.4-12.3 NUCLEATED RED BLOOD CELLS (BEAKER) (test 4 /100 WBC 0-0 lbxe=981) NEUTROPHILS RELATIVE PERCENT (BEAKER) (test 80 % prxn=663) LYMPHOCYTES RELATIVE PERCENT (BEAKER) (test 6 % efge=741) MONOCYTES RELATIVE PERCENT (BEAKER) (test 11 % hajr=572) EOSINOPHILS RELATIVE PERCENT (BEAKER) (test 1 % tmbo=550) BASOPHILS RELATIVE PERCENT (BEAKER) (test 0 % hjga=813) NEUTROPHILS ABSOLUTE COUNT (BEAKER) (test 11.46 K/ L 1.56-6.13 gbgv=444) LYMPHOCYTES ABSOLUTE COUNT (BEAKER) (test 0.80 K/ L 1.18-3.74 ecjy=230) MONOCYTES ABSOLUTE COUNT (BEAKER) (test 1.60 K/ L 0.24-0.36 bqvq=896) EOSINOPHILS ABSOLUTE COUNT (BEAKER) (test 0.07 K/ L 0.04-0.36 dhzf=488) BASOPHILS ABSOLUTE COUNT (BEAKER) (test 0.03 K/ L 0.01-0.08 uxco=863) IMMATURE GRANULOCYTES-RELATIVE PERCENT (BEAKER) 3 % 0-1 (test yoyz=3095) RAD, CHEST, 1 VIEW, NON [id number] 03:48:00Reason for exam:->SOBShould this be performed at the bedside?->YesFINAL REPORT RAD , CHEST, 1 VIEW, NON DEPT INDICATION: SOB COMPARISON: Prior day's exam FINDINGS : Portable frontal view of the chest. IMPRESSION: Support Lines: Stable. Lungs and pleura: Unchanged airspace and pleural opacities. No pneumothorax.Heart and mediastinum: Stable contours. Additional findings: None. Signed: Desire Méndez Verified Date/Time: 08/11/2018 03:48:09 POCT -GLUCOSE [id number] 23:26:00 Test Item Value Reference Range Comments POC-GLUCOSE METER (BEAKER) 101 mg/dL 70-110 TESTED AT [address] (test somm=3498) [place] [id number] POCT-GLUCOSE [id number] 18:11:00 Test Item Value Reference Range Comments POC-GLUCOSE METER (BEAKER) 171 mg/dL 70-110 TESTED AT [address] (test hviz=3732) [place] [address] BASIC METABOLIC [id number] 16:14:00 Test Item Value Reference Range Comments SODIUM (BEAKER) (test 134 meq/L 136-145 evuu=084) POTASSIUM (BEAKER) (test 4.6 meq/L 3.5-5.1 hvsq=882) CHLORIDE (BEAKER) (test 102 meq/L 98-107 upei=111) CO2 (BEAKER) (test 25 meq/L 22-29 uxvi=128) BLOOD UREA NITROGEN 51 mg/dL 7-21 (BEAKER) (test nsaf=627) CREATININE (BEAKER) (test 3.89 mg/dL 0.57-1.25 slfz=255) GLUCOSE RANDOM (BEAKER) 182 mg/dL 70-105 (test hdec=580) CALCIUM (BEAKER) (test 8.2 mg/dL 8.4-10.2 bsfw=877) EGFR (BEAKER) (test 11 mL/min/1.73 sq m ESTIMATED GFR IS NOT porz=6089) ACCURATE CREATININE CLEARANCE IN PREDICTING GLOMERULAR FILTRATION RATE. ESTIMATED GFR IS NOT APPLICABLE FOR DIALYSIS PATIENTS. [id number] 16:07:00 Test Item Value Reference Range Comments MAGNESIUM (BEAKER) (test uiat=602) 2.0 mg/dL 1.6-2.6 LACTIC ACID, [id number] 15:23:00 Test Item Value Reference Range Comments LACTATE BLOOD ARTERIAL (2) (BEAKER) (test 0.9 mmol/L 0.5-2.2 gvgv=7361) RAD, CHEST, 1 VIEW, NON [id number] 15:07:00Reason for exam:-> hypoxemiaShould this be performed [...] MDReport Verified Date/Time: 08/10/2018 15:07:53 Reading Location: [address] Consult Reading Room 03: 07 PMBLOOD GAS, [id number] 14:53:00 Test Item Value Reference Range Comments PH ARTERIAL (BEAKER) (test dxtd=335) 7.44 7.35-7.45 PCO2 ARTERIAL (BEAKER) (test iuix=353) 38 mmHg 35-45 PO2 ARTERIAL (BEAKER) (test rgsw=215) 165 mmHg 80-90 O2 SATURATION ARTERIAL (BEAKER) (test csrh=108) 99.2 % 96.0-97.0 HCO3 ARTERIAL (BEAKER) (test gdta=639) 26 mmol/L 21-29 BASE EXCESS ARTERIAL (BEAKER) (test yiow=376) 1.1 mmol/L -2.0-3.0 PATIENT TEMPERATURE (BEAKER) (test ptiq=5164) 36.4 C FIO2 (BEAKER) (test hsnx=6678) 44.0 % POCT-GLUCOSE [id number] 12:20:00 Test Item Value Reference Range Comments POC-GLUCOSE METER (BEAKER) 208 mg/dL 70-[address] [facility] [address] [facility] (test lsxb=1469) [facility] [address] CBC W/PLT COUNT & AUTO [id number] 08:56:00 Test Item Value Reference Range Comments WHITE BLOOD CELL COUNT (BEAKER) (test jdsd=874) 12.2 K/ L 3.5-10.5 RED BLOOD CELL COUNT (BEAKER) (test cked=090) 2.87 M/ L 3.93-5.22 HEMOGLOBIN (BEAKER) (test ahes=839) 8.8 GM/DL 11.2-15.7 HEMATOCRIT (BEAKER) (test enje=499) 27.4 % 34.1-44.9 MEAN CORPUSCULAR VOLUME (BEAKER) (test azbt=858) 95.5 fL 79.4-94.8 MEAN CORPUSCULAR HEMOGLOBIN (BEAKER) (test 30.7 pg 25.6-32.2 zuch=401) MEAN CORPUSCULAR HEMOGLOBIN CONC (BEAKER) (test 32.1 GM/DL 32.2-35.5 zlok=210) RED CELL DISTRIBUTION WIDTH (BEAKER) (test 15.1 % 11.7-14.4 awcs=451) PLATELET COUNT (BEAKER) (test gxcq=973) 224 K/CU MM 150-450 MEAN PLATELET VOLUME (BEAKER) (test dudj=397) 9.8 fL 9.4-12.3 NUCLEATED RED BLOOD CELLS (BEAKER) (test 1 /100 WBC 0-0 vvwr=245) (CELLAVISION MANUAL DIFF)2018-08-10 08:56:00 Test Item Value Reference Range Comments NEUTROPHILS - REL (CELLAVISION)(BEAKER) (test 80 % dzzk=5111) LYMPHOCYTES - REL (CELLAVISION)(BEAKER) (test 7 % aggx=4061) MONOCYTES - REL (CELLAVISION)(BEAKER) (test 10 % uyoj=3345) EOSINOPHILS - REL (CELLAVISION)(BEAKER) (test 2 % lylo=2094) NEUTROPHILS - ABS (CELLAVISION)(BEAKER) (test 9.76 K/ul 1.56-6.13 yswr=5904) LYMPHOCYTES - ABS (CELLAVISION)(BEAKER) (test 0.85 K/ul 1.18-3.74 bvjj=4388) MONOCYTES - ABS (CELLAVISION)(BEAKER) (test 1.22 K/uL 0.24-0.36 dezn=6808) EOSINOPHILS - ABS (CELLAVISION)(BEAKER) (test 0.24 K/uL 0.04-0.36 xnsv=5721) TOTAL COUNTED (BEAKER) (test mgaf=7310) 100 MANUAL NRBC PER 100 CELLS (BEAKER) (test 2 /100 WBC 0-0 vvlm=4723) PLT MORPHOLOGY (BEAKER) (test rdzt=771) Normal TOXIC GRANULATION (BEAKER) (test nqvv=314) Present POLYCHROMATOPHILLIC RBCS(BEAKER) (test dmps=162) 1+ few ARTIFACT (CELLAVISION)(BEAKER) (test mupp=6260) Present PLATELET CONCENTRATION (CELLAVISION)(BEAKER) Adequate (test lobl=1958) Received comment: User comments: Slide comments:RAD, CHEST, 1 VIEW, NON [id number] 08:03:00Reason for exam:->SOBShould this be performed [...] Navarro MDReport Verified Date/Time: 08:03:28 Reading Location: [facility] Radiology Reading Room POCT- GLUCOSE [id number] 07:51:00 Test Item Value Reference Range Comments POC-GLUCOSE METER (BEAKER) 129 mg/dL 70-110 TESTED AT [address] (test kwmh=5492) [place] [address] POCT-GLUCOSE [id number] 06:38:00 Test Item Value Reference Range Comments POC-GLUCOSE METER (BEAKER) 193 mg/dL 70-110 TESTED AT [address] (test aipu=2612) [place] [address] POCT-GLUCOSE [id number] 05:48:00 Test Item Value Reference Range Comments POC-GLUCOSE METER (BEAKER) 67 mg/dL 70-110 TESTED AT [address] (test qdhk=3366) [place] [address] BASIC METABOLIC [id number] 05:07:00 Test Item Value Reference Range Comments SODIUM (BEAKER) (test 137 meq/L 136-145 wezk=541) POTASSIUM (BEAKER) (test 4.1 meq/L 3.5-5.1 Specimen slightly kmxp=529) hemolyzed CHLORIDE (BEAKER) (test 103 meq/L 98-107 ybko=822) CO2 (BEAKER) (test 26 meq/L 22-29 bpdr=516) BLOOD UREA NITROGEN 45 mg/dL 7-21 (BEAKER) (test qocr=187) CREATININE (BEAKER) (test 2.97 mg/dL 0.57-1.25 Specimen slightly hlok=458) hemolyzed GLUCOSE RANDOM (BEAKER) 66 mg/dL 70-105 (test trkh=930) CALCIUM (BEAKER) (test 9.1 mg/dL 8.4-10.2 fyiy=694) EGFR (BEAKER) (test 15 mL/min/1.73 sq m ESTIMATED GFR IS NOT vokb=5769) ACCURATE CREATININE CLEARANCE IN PREDICTING GLOMERULAR FILTRATION RATE. ESTIMATED GFR IS NOT APPLICABLE FOR DIALYSIS PATIENTS. [id number] 05:06:00 Test Item Value Reference Range Comments MAGNESIUM (BEAKER) (test 2.0 mg/dL 1.6-2.6 Specimen slightly hemolyzed lktl=677) POCT-GLUCOSE [id number] 20:02:00 Test Item Value Reference Range Comments POC-GLUCOSE METER (BEAKER) 95 mg/dL 70-110 TESTED AT [address] (test jvgr=6909) [place] [address] POCT-GLUCOSE [id number] 17:35:00 Test Item Value Reference Range Comments POC-GLUCOSE METER (BEAKER) 144 mg/dL 70-110 TESTED AT [address] (test wyvw=2837) [place] [address] POCT-GLUCOSE [id number] 13:42:00 Test Item Value Reference Range Comments POC-GLUCOSE METER (BEAKER) 180 mg/dL 70-110 TESTED AT [address] (test kwvy=1428) [place] [address] POCT-GLUCOSE [id number] 07:56:00 Test Item Value Reference Range Comments POC-GLUCOSE METER (BEAKER) 206 mg/dL 70-110 TESTED AT [address] (test voaz=9408) [place] [address] CBC W/PLT COUNT & AUTO [id number] 06:25:00 Test Item Value Reference Range Comments WHITE BLOOD CELL COUNT (BEAKER) (test gjgp=210) 13.6 K/ L 3.5-10.5 RED BLOOD CELL COUNT (BEAKER) (test rrbj=303) 2.66 M/ L 3.93-5.22 HEMOGLOBIN (BEAKER) (test zsmv=853) 8.2 GM/DL 11.2-15.7 HEMATOCRIT (BEAKER) (test itvi=352) 25.5 % 34.1-44.9 MEAN CORPUSCULAR VOLUME (BEAKER) (test tfho=608) 95.9 fL 79.4-94.8 MEAN CORPUSCULAR HEMOGLOBIN (BEAKER) (test 30.8 pg 25.6-32.2 phuo=961) MEAN CORPUSCULAR HEMOGLOBIN CONC (BEAKER) (test 32.2 GM/DL 32.2-35.5 zhrg=755) RED CELL DISTRIBUTION WIDTH (BEAKER) (test 14.9 % 11.7-14.4 xvhm=343) PLATELET COUNT (BEAKER) (test ezgx=979) 278 K/CU MM 150-450 MEAN PLATELET VOLUME (BEAKER) (test vtju=405) 10.2 fL 9.4-12.3 NUCLEATED RED BLOOD CELLS (BEAKER) (test 0 /100 WBC 0-0 mmqw=702) NEUTROPHILS RELATIVE PERCENT (BEAKER) (test 82 % qxev=391) LYMPHOCYTES RELATIVE PERCENT (BEAKER) (test 5 % mhqk=720) MONOCYTES RELATIVE PERCENT (BEAKER) (test 13 % ugac=624) EOSINOPHILS RELATIVE PERCENT (BEAKER) (test 0 % vjin=380) BASOPHILS RELATIVE PERCENT (BEAKER) (test 0 % weuk=530) NEUTROPHILS ABSOLUTE COUNT (BEAKER) (test 11.05 K/ L 1.56-6.13 jmna=929) LYMPHOCYTES ABSOLUTE COUNT (BEAKER) (test 0.63 K/ L 1.18-3.74 oash=824) MONOCYTES ABSOLUTE COUNT (BEAKER) (test 1.74 K/ L 0.24-0.36 xnpn=078) EOSINOPHILS ABSOLUTE COUNT (BEAKER) (test 0.00 K/ L 0.04-0.36 zsbh=272) BASOPHILS ABSOLUTE COUNT (BEAKER) (test 0.01 K/ L 0.01-0.08 iird=215) IMMATURE GRANULOCYTES-RELATIVE PERCENT (BEAKER) 1 % 0-1 (test bejz=0988) BASIC METABOLIC [id number] 06:22:00 Test Item Value Reference Range Comments SODIUM (BEAKER) (test 135 meq/L 136-145 evhe=942) POTASSIUM (BEAKER) (test 4.8 meq/L 3.5-5.1 Specimen moderately vgwx=796) hemolyzed CHLORIDE (BEAKER) (test 102 meq/L 98-107 sssp=227) CO2 (BEAKER) (test 18 meq/L 22-29 poxd=404) BLOOD UREA NITROGEN 84 mg/dL 7-21 (BEAKER) (test ywlq=726) CREATININE (BEAKER) (test 4.72 mg/dL 0.57-1.25 Specimen moderately xivx=945) hemolyzed GLUCOSE RANDOM (BEAKER) 205 mg/dL 70-105 (test lhex=733) CALCIUM (BEAKER) (test 8.5 mg/dL 8.4-10.2 luzp=222) EGFR (BEAKER) (test 9 mL/min/1.73 sq m ESTIMATED GFR IS NOT uqun=6998) ACCURATE CREATININE CLEARANCE IN PREDICTING GLOMERULAR FILTRATION RATE. ESTIMATED GFR IS NOT APPLICABLE FOR DIALYSIS PATIENTS. RAD, CHEST, 1 VIEW, NON [id number] 05:59:00Reason for exam:->SOBShould this be performed at [...] cervical spine. Signed: Desire Méndez Verified Date/Time: 08/09/2018 05:59:24 POCT-GLUCOSE [id number] 22:05:00 Test Item Value Reference Range Comments POC-GLUCOSE METER (BEAKER) 254 mg/dL 70-110 TESTED AT [place] [id number] [facility] (test kxfj=3413) [facility] [address] POCT-GLUCOSE [id number] 18:33:00 Test Item Value Reference Range Comments POC-GLUCOSE METER (BEAKER) 271 mg/dL 70-[address] [facility] [address] [facility] (test ngxd=6735) [facility] [address] RAD, CHEST, 1 VIEW, NON [id number] 15:44:00Reason for exam:->IABP placementShould this be performed [...] Tracey Verified Date/Time: 08/08/2018 15:44:27 Reading Location: [facility] Reading Room RAD, CHEST, 1 VIEW, NON [id number] 13:42: 00Reason for exam:->IABP positionShould this be [...] Tracey Verified Date/Time: 08/08/2018 13:42:06 Reading Location: [facility] Reading Room POCT-GLUCOSE [id number] 13:28:00 Test Item Value Reference Range Comments POC-GLUCOSE METER (BEAKER) 294 mg/dL 70-[address] [facility] [address] [place] [address] (test llzy=4362) [facility] [address] RAD, CHEST, 1 VIEW, NON [id number] 08:20:00Reason for exam:->SOBShould this be performed at [...] MDReport Verified Date/Time: 08/08/2018 08:20:51 Reading Location: [facility] Radiology Reading Room POCT-GLUCOSE [id number] 07:57:00 Test Item Value Reference Range Comments POC-GLUCOSE METER (BEAKER) 286 mg/dL 70-[address] [facility] [address] [facility] (test tijt=5591) [facility] [address] CBC W/PLT COUNT & AUTO [id number] 05:11:00 Test Item Value Reference Range Comments WHITE BLOOD CELL COUNT (BEAKER) (test fsxs=009) 11.2 K/ L 3.5-10.5 RED BLOOD CELL COUNT (BEAKER) (test tvmt=069) 2.71 M/ L 3.93-5.22 HEMOGLOBIN (BEAKER) (test yytb=724) 8.3 GM/DL 11.2-15.7 HEMATOCRIT (BEAKER) (test xwnj=366) 26.1 % 34.1-44.9 MEAN CORPUSCULAR VOLUME (BEAKER) (test vfrq=772) 96.3 fL 79.4-94.8 MEAN CORPUSCULAR HEMOGLOBIN (BEAKER) (test 30.6 pg 25.6-32.2 eecr=834) MEAN CORPUSCULAR HEMOGLOBIN CONC (BEAKER) (test 31.8 GM/DL 32.2-35.5 ytht=174) RED CELL DISTRIBUTION WIDTH (BEAKER) (test 14.0 % 11.7-14.4 jval=127) PLATELET COUNT (BEAKER) (test nlur=233) 227 K/CU MM 150-450 MEAN PLATELET VOLUME (BEAKER) (test xbmb=483) 10.6 fL 9.4-12.3 NUCLEATED RED BLOOD CELLS (BEAKER) (test 0 /100 WBC 0-0 hjvk=341) NEUTROPHILS RELATIVE PERCENT (BEAKER) (test 90 % ntqk=433) LYMPHOCYTES RELATIVE PERCENT (BEAKER) (test 4 % bznr=497) MONOCYTES RELATIVE PERCENT (BEAKER) (test 4 % ovmj=745) EOSINOPHILS RELATIVE PERCENT (BEAKER) (test 0 % uyue=272) BASOPHILS RELATIVE PERCENT (BEAKER) (test 0 % wmcr=105) NEUTROPHILS ABSOLUTE COUNT (BEAKER) (test 10.06 K/ L 1.56-6.13 rpnm=390) LYMPHOCYTES ABSOLUTE COUNT (BEAKER) (test 0.45 K/ L 1.18-3.74 mgzk=409) MONOCYTES ABSOLUTE COUNT (BEAKER) (test 0.48 K/ L 0.24-0.36 wpij=588) EOSINOPHILS ABSOLUTE COUNT (BEAKER) (test 0.00 K/ L 0.04-0.36 tvuo=272) BASOPHILS ABSOLUTE COUNT (BEAKER) (test 0.03 K/ L 0.01-0.08 milh=314) IMMATURE GRANULOCYTES-RELATIVE PERCENT (BEAKER) 2 % 0-1 (test krdt=7089) [id number] 04:43:00 Test Item Value Reference Range Comments MAGNESIUM (BEAKER) (test pagy=232) 2.3 mg/dL 1.6-2.6 BASIC METABOLIC [id number] 04:43:00 Test Item Value Reference Range Comments SODIUM (BEAKER) (test 135 meq/L 136-145 oqvj=302) POTASSIUM (BEAKER) (test 4.9 meq/L 3.5-5.1 bdin=463) CHLORIDE (BEAKER) (test 102 meq/L 98-107 wwky=237) CO2 (BEAKER) (test 18 meq/L 22-29 xmey=940) BLOOD UREA NITROGEN 68 mg/dL 7-21 (BEAKER) (test ffjx=344) CREATININE (BEAKER) (test 3.54 mg/dL 0.57-1.25 pbxk=122) GLUCOSE RANDOM (BEAKER) 267 mg/dL 70-105 (test mxpu=504) CALCIUM (BEAKER) (test 8.6 mg/dL 8.4-10.2 nnmp=128) EGFR (BEAKER) (test 12 mL/min/1.73 sq m ESTIMATED GFR IS NOT geys=1731) ACCURATE CREATININE CLEARANCE IN PREDICTING GLOMERULAR FILTRATION RATE. ESTIMATED GFR IS NOT APPLICABLE FOR DIALYSIS PATIENTS. POCT-GLUCOSE [id number] 22:27:00 Test Item Value Reference Range Comments POC-GLUCOSE METER (BEAKER) 279 mg/dL 70-[address] [facility] [address] [facility] (test atgc=4099) [place] [address] BASIC METABOLIC [id number] 22:17:00 Test Item Value Reference Range Comments SODIUM (BEAKER) (test 133 meq/L 136-145 qpjv=705) POTASSIUM (BEAKER) (test 4.6 meq/L 3.5-5.1 cyma=160) CHLORIDE (BEAKER) (test 100 meq/L 98-107 gtuk=805) CO2 (BEAKER) (test 18 meq/L 22-29 ggha=040) BLOOD UREA NITROGEN 64 mg/dL 7-21 (BEAKER) (test oswg=099) CREATININE (BEAKER) (test 3.59 mg/dL 0.57-1.25 xfxf=265) GLUCOSE RANDOM (BEAKER) 250 mg/dL 70-105 (test tedo=666) CALCIUM (BEAKER) (test 8.3 mg/dL 8.4-10.2 skzc=948) EGFR (BEAKER) (test 12 mL/min/1.73 sq m ESTIMATED GFR IS NOT yzab=3369) ACCURATE CREATININE CLEARANCE IN PREDICTING GLOMERULAR FILTRATION RATE. ESTIMATED GFR IS NOT APPLICABLE FOR DIALYSIS PATIENTS. [id number] 22:13:00 Test Item Value Reference Range Comments MAGNESIUM (BEAKER) (test aucy=506) 2.1 mg/dL 1.6-2.6 [id number] 19:37:00 Test Item Value Reference Range Comments ACTIVATED CLOTTING TIME [address] [facility] [address] (BEAKER) (test invl=381) [place] [address] [id number] 18:30:00 Test Item Value Reference Range Comments ACTIVATED CLOTTING TIME [address] [facility] [address] (BEAKER) (test metf=928) [place] [address] [id number] 17:58:00 Test Item Value Reference Range Comments ACTIVATED CLOTTING TIME 219 sec TESTED AT [place] [address] [address] (BEAKER) (test iyqa=438) [facility] [address] [id number] 17:58:00 Test Item Value Reference Range Comments ACTIVATED CLOTTING TIME > sec OUTSIDE MEASURING RANGETESTED AT (BEAKER) (test ftls=260) [address] [address] POCT-GLUCOSE [id number] 12:23:00 Test Item Value Reference Range Comments POC-GLUCOSE METER (AKER) 169 mg/dL 70-110 TESTED AT [address] (test xemb=2531) [place] [address] RAD, CHEST, 1 VIEW, NON [id number] 09:10:00Reason for exam:->SOBShould this be performed at the bedside?->YesFINAL REPORT Chest dated 08/07/2018 COMPARISON: 08/06/2018 Clinical Information: SOB Comment: Heart is enlarged. Pulmonary vasculature is indistinct. Interstitial disease is seen bilaterally suggestive of vascular congestion or pulmonary edema. There is small bilateral pleural effusion. IMPRESSION: No interval change. Signed: Yuan Arango Verified Date/Time: 08/07/2018 09:10:23 Reading Location: [facility] Radiology Reading Room POCT-GLUCOSE [id number] 07:49:00 Test Item Value Reference Range Comments POC-GLUCOSE METER (BEAKER) 165 mg/dL 70-110 TESTED AT [address] (test fbhl=3768) [place] [id number] COMPREHENSIVE METABOLIC [id number] 06:00:00 Test Item Value Reference Range Comments TOTAL PROTEIN (BEAKER) 6.0 gm/dL 6.0-8.3 (test hkmi=794) ALBUMIN (BEAKER) (test 3.3 g/dL 3.5-5.0 wlpf=8974) ALKALINE PHOSPHATASE 58 U/L 40-150 (BEAKER) (test lwjm=767) BILIRUBIN TOTAL (BEAKER) 0.4 mg/dL 0.2-1.2 (test xuvz=310) SODIUM (BEAKER) (test 135 meq/L 136-145 gpty=954) POTASSIUM (BEAKER) (test 4.1 meq/L 3.5-5.1 hqjg=086) CHLORIDE (BEAKER) (test 102 meq/L 98-107 unak=780) CO2 (BEAKER) (test 24 meq/L 22-29 dlts=664) BLOOD UREA NITROGEN 52 mg/dL 7-21 (BEAKER) (test eecz=835) CREATININE (BEAKER) (test 3.23 mg/dL 0.57-1.25 mnfy=453) GLUCOSE RANDOM (BEAKER) 154 mg/dL 70-105 (test lmbq=047) CALCIUM (BEAKER) (test 8.3 mg/dL 8.4-10.2 jhbh=858) AST (SGOT) (BEAKER) (test 31 U/L 5-34 ygbk=641) ALT (SGPT) (BEAKER) (test 17 U/L 6-55 rngd=087) EGFR (BEAKER) (test 14 mL/min/1.73 sq m ESTIMATED GFR IS NOT jbgc=9120) ACCURATE CREATININE CLEARANCE IN PREDICTING GLOMERULAR FILTRATION RATE. ESTIMATED GFR IS NOT APPLICABLE FOR DIALYSIS PATIENTS. [id number] 05:56:00 Test Item Value Reference Range Comments PHOSPHORUS (BEAKER) (test xqrd=218) 2.9 mg/dL 2.3-4.7 [id number] 05:56:00 Test Item Value Reference Range Comments MAGNESIUM (BEAKER) (test kynh=035) 2.0 mg/dL 1.6-2.6 CBC W/PLT COUNT & AUTO [id number] 05:42:00 Test Item Value Reference Range Comments WHITE BLOOD CELL COUNT (BEAKER) (test aknb=855) 9.6 K/ L 3.5-10.5 RED BLOOD CELL COUNT (BEAKER) (test hvse=365) 2.84 M/ L 3.93-5.22 HEMOGLOBIN (BEAKER) (test keds=642) 8.8 GM/DL 11.2-15.7 HEMATOCRIT (BEAKER) (test dcbz=371) 27.2 % 34.1-44.9 MEAN CORPUSCULAR VOLUME (BEAKER) (test vlhy=636) 95.8 fL 79.4-94.8 MEAN CORPUSCULAR HEMOGLOBIN (BEAKER) (test 31.0 pg 25.6-32.2 jjyt=299) MEAN CORPUSCULAR HEMOGLOBIN CONC (BEAKER) (test 32.4 GM/DL 32.2-35.5 bhdt=120) RED CELL DISTRIBUTION WIDTH (BEAKER) (test 14.1 % 11.7-14.4 nwgh=865) PLATELET COUNT (BEAKER) (test ecsr=551) 218 K/CU MM 150-450 MEAN PLATELET VOLUME (BEAKER) (test qjxs=011) 10.2 fL 9.4-12.3 NUCLEATED RED BLOOD CELLS (BEAKER) (test 0 /100 WBC 0-0 dgji=131) NEUTROPHILS RELATIVE PERCENT (BEAKER) (test 76 % wnrf=911) LYMPHOCYTES RELATIVE PERCENT (BEAKER) (test 9 % kmqi=649) MONOCYTES RELATIVE PERCENT (BEAKER) (test 12 % ultg=584) EOSINOPHILS RELATIVE PERCENT (BEAKER) (test 1 % xgni=889) BASOPHILS RELATIVE PERCENT (BEAKER) (test 0 % egrm=078) NEUTROPHILS ABSOLUTE COUNT (BEAKER) (test 7.35 K/ L 1.56-6.13 qerd=870) LYMPHOCYTES ABSOLUTE COUNT (BEAKER) (test 0.84 K/ L 1.18-3.74 xkyl=602) MONOCYTES ABSOLUTE COUNT (BEAKER) (test 1.16 K/ L 0.24-0.36 azej=986) EOSINOPHILS ABSOLUTE COUNT (BEAKER) (test 0.13 K/ L 0.04-0.36 fmpq=173) BASOPHILS ABSOLUTE COUNT (BEAKER) (test 0.04 K/ L 0.01-0.08 alyt=735) IMMATURE GRANULOCYTES-RELATIVE PERCENT (BEAKER) 1 % 0-1 (test mrxm=4311) CALCIUM, [id number] 05:32:00 Test Item Value Reference Range Comments CALCIUM IONIZED (BEAKER) (test uaro=043) 1.12 mmol/L 1.12-1.27 PH, BLOOD (BEAKER) (test adsd=1994) 7.36 POCT-GLUCOSE [id number] 21:35:00 Test Item Value Reference Range Comments POC-GLUCOSE METER (BEAKER) 143 mg/dL 70-[address] [facility] [address] (test tgev=0141) [facility] [address] POCT-GLUCOSE [id number] 17:31:00 Test Item Value Reference Range Comments POC-GLUCOSE METER (BEAKER) 105 mg/dL 70-110 TESTED AT [address] (test khrq=8065) [facility] [address] POCT-GLUCOSE [id number] 12:46:00 Test Item Value Reference Range Comments POC-GLUCOSE METER (BEAKER) 159 mg/dL 70-110 TESTED AT [address] (test tvrc=5579) [facility] [address] POCT-GLUCOSE [id number] 07:40:00 Test Item Value Reference Range Comments POC-GLUCOSE METER (BEAKER) 120 mg/dL 70-110 TESTED AT [address] (test vuhg=9281) [facility] [address] [id number] 04:52:00 Test Item Value Reference Range Comments MAGNESIUM (BEAKER) (test qftk=913) 1.8 mg/dL 1.6-2.6 BASIC METABOLIC [id number] 04:52:00 Test Item Value Reference Range Comments SODIUM (BEAKER) (test 137 meq/L 136-145 cgue=817) POTASSIUM (BEAKER) (test 3.8 meq/L 3.5-5.1 qmqn=699) CHLORIDE (BEAKER) (test 105 meq/L 98-107 qajb=735) CO2 (BEAKER) (test 23 meq/L 22-29 ezkw=569) BLOOD UREA NITROGEN 51 mg/dL 7-21 (BEAKER) (test xzbu=834) CREATININE (BEAKER) (test 2.93 mg/dL 0.57-1.25 unhu=968) GLUCOSE RANDOM (BEAKER) 108 mg/dL 70-105 (test slbf=752) CALCIUM (BEAKER) (test 8.4 mg/dL 8.4-10.2 dlht=515) EGFR (BEAKER) (test 16 mL/min/1.73 sq m ESTIMATED GFR IS NOT zqdl=4289) ACCURATE CREATININE CLEARANCE IN PREDICTING GLOMERULAR FILTRATION RATE. ESTIMATED GFR IS NOT APPLICABLE FOR DIALYSIS PATIENTS. RAD, CHEST, 1 VIEW, NON [id number] 04:45:00Reason for exam:->SOBShould this be performed at [...] [place] Verified Date/Time: 08/06/2018 04:45:08 Reading Location: [address] Reading Room [id number] 04:31:00 Test Item Value Reference Range Comments PARTIAL THROMBOPLASTIN TIME (BEAKER) (test 45.7 seconds 22.5-36.0 wllb=666) 4 hours after the start of continuous infusion and 4 hours after any rate changeCBC W/PLT COUNT & AUTO [id number] 04:23:00 Test Item Value Reference Range Comments WHITE BLOOD CELL COUNT (BEAKER) (test ksxu=649) 8.8 K/ L 3.5-10.5 RED BLOOD CELL COUNT (BEAKER) (test lvdz=217) 2.95 M/ L 3.93-5.22 HEMOGLOBIN (BEAKER) (test zbqb=207) 9.1 GM/DL 11.2-15.7 HEMATOCRIT (BEAKER) (test rjig=160) 27.9 % 34.1-44.9 MEAN CORPUSCULAR VOLUME (BEAKER) (test sbch=073) 94.6 fL 79.4-94.8 MEAN CORPUSCULAR HEMOGLOBIN (BEAKER) (test 30.8 pg 25.6-32.2 opap=433) MEAN CORPUSCULAR HEMOGLOBIN CONC (BEAKER) (test 32.6 GM/DL 32.2-35.5 infx=257) RED CELL DISTRIBUTION WIDTH (BEAKER) (test 13.4 % 11.7-14.4 rwlm=960) PLATELET COUNT (BEAKER) (test opds=713) 223 K/CU MM 150-450 MEAN PLATELET VOLUME (BEAKER) (test hiut=805) 10.0 fL 9.4-12.3 NUCLEATED RED BLOOD CELLS (BEAKER) (test 0 /100 WBC 0-0 jbly=550) NEUTROPHILS RELATIVE PERCENT (BEAKER) (test 75 % xcbn=334) LYMPHOCYTES RELATIVE PERCENT (BEAKER) (test 12 % hfzg=148) MONOCYTES RELATIVE PERCENT (BEAKER) (test 10 % edgr=143) EOSINOPHILS RELATIVE PERCENT (BEAKER) (test 2 % qwxh=181) BASOPHILS RELATIVE PERCENT (BEAKER) (test 0 % xarf=332) NEUTROPHILS ABSOLUTE COUNT (BEAKER) (test 6.55 K/ L 1.56-6.13 icws=749) LYMPHOCYTES ABSOLUTE COUNT (BEAKER) (test 1.08 K/ L 1.18-3.74 eemm=726) MONOCYTES ABSOLUTE COUNT (BEAKER) (test 0.89 K/ L 0.24-0.36 wbfv=579) EOSINOPHILS ABSOLUTE COUNT (BEAKER) (test 0.16 K/ L 0.04-0.36 ckwv=343) BASOPHILS ABSOLUTE COUNT (BEAKER) (test 0.03 K/ L 0.01-0.08 chhq=408) IMMATURE GRANULOCYTES-RELATIVE PERCENT (BEAKER) 1 % 0-1 (test ihco=8480) POCT-GLUCOSE [id number] 21:47:00 Test Item Value Reference Range Comments POC-GLUCOSE METER (BEAKER) 184 mg/dL 70-110 TESTED AT [address] (test vkik=3047) [place] [id number] POCT-GLUCOSE [id number] 17:15:00 Test Item Value Reference Range Comments POC-GLUCOSE METER (BEAKER) 120 mg/dL 70-110 TESTED AT [address] (test eedg=9818) [place] [address] POCT-GLUCOSE [id number] 12:00:00 Test Item Value Reference Range Comments POC-GLUCOSE METER (BEAKER) 226 mg/dL 70-110 TESTED AT [address] (test yzta=4335) [place] [address] POCT-GLUCOSE [id number] 07:45:00 Test Item Value Reference Range Comments POC-GLUCOSE METER (BEAKER) 192 mg/dL 70-110 TESTED AT [address] (test kidl=1317) [place] [address] RAD, CHEST, 1 VIEW, NON [id number] 07:45:00Reason for exam:->SOBShould this be performed at [...] contours. Additionalfindings: None. Signed: JR Hernandez Robert MDRepkarlie Verified Date/Time: 08/05/2018 07:45: 53 Reading Location: [facility] Neuro Reading Room [id number] 06:25:00 Test Item Value Reference Range Comments MAGNESIUM (BEAKER) (test ngdi=709) 1.8 mg/dL 1.6-2.6 BASIC METABOLIC [id number] 06:25:00 Test Item Value Reference Range Comments SODIUM (BEAKER) (test 138 meq/L 136-145 vlnx=379) POTASSIUM (BEAKER) (test 3.9 meq/L 3.5-5.1 kecc=449) CHLORIDE (BEAKER) (test 107 meq/L 98-107 trtb=476) CO2 (BEAKER) (test 23 meq/L 22-29 hcud=700) BLOOD UREA NITROGEN 53 mg/dL 7-21 (BEAKER) (test gmzm=801) CREATININE (BEAKER) (test 2.79 mg/dL 0.57-1.25 aftc=545) GLUCOSE RANDOM (BEAKER) 134 mg/dL 70-105 (test uzrw=288) CALCIUM (BEAKER) (test 8.3 mg/dL 8.4-10.2 quxj=240) EGFR (BEAKER) (test 16 mL/min/1.73 sq m ESTIMATED GFR IS NOT maxh=7076) ACCURATE CREATININE CLEARANCE IN PREDICTING GLOMERULAR FILTRATION RATE. ESTIMATED GFR IS NOT APPLICABLE FOR DIALYSIS PATIENTS. CBC W/PLT COUNT & AUTO [id number] 05:59:00 Test Item Value Reference Range Comments WHITE BLOOD CELL COUNT (BEAKER) (test mjrh=378) 8.1 K/ L 3.5-10.5 RED BLOOD CELL COUNT (BEAKER) (test guwl=639) 3.09 M/ L 3.93-5.22 HEMOGLOBIN (BEAKER) (test suel=112) 9.5 GM/DL 11.2-15.7 HEMATOCRIT (BEAKER) (test atfw=840) 30.1 % 34.1-44.9 MEAN CORPUSCULAR VOLUME (BEAKER) (test tkks=766) 97.4 fL 79.4-94.8 MEAN CORPUSCULAR HEMOGLOBIN (BEAKER) (test 30.7 pg 25.6-32.2 axtg=080) MEAN CORPUSCULAR HEMOGLOBIN CONC (BEAKER) (test 31.6 GM/DL 32.2-35.5 ykxv=678) RED CELL DISTRIBUTION WIDTH (BEAKER) (test 13.5 % 11.7-14.4 yhcj=092) PLATELET COUNT (BEAKER) (test odfi=673) 172 K/CU MM 150-450 MEAN PLATELET VOLUME (BEAKER) (test gkmc=830) 10.1 fL 9.4-12.3 NUCLEATED RED BLOOD CELLS (BEAKER) (test 0 /100 WBC 0-0 ruds=065) NEUTROPHILS RELATIVE PERCENT (BEAKER) (test 75 % oona=903) LYMPHOCYTES RELATIVE PERCENT (BEAKER) (test 12 % mzxv=636) MONOCYTES RELATIVE PERCENT (BEAKER) (test 11 % iljp=399) EOSINOPHILS RELATIVE PERCENT (BEAKER) (test 2 % fmrz=581) BASOPHILS RELATIVE PERCENT (BEAKER) (test 0 % ndkt=308) NEUTROPHILS ABSOLUTE COUNT (BEAKER) (test 6.06 K/ L 1.56-6.13 rlzn=261) LYMPHOCYTES ABSOLUTE COUNT (BEAKER) (test 0.95 K/ L 1.18-3.74 yrrr=093) MONOCYTES ABSOLUTE COUNT (BEAKER) (test 0.85 K/ L 0.24-0.36 lsex=401) EOSINOPHILS ABSOLUTE COUNT (BEAKER) (test 0.13 K/ L 0.04-0.36 ylxg=550) BASOPHILS ABSOLUTE COUNT (BEAKER) (test 0.03 K/ L 0.01-0.08 acfi=143) IMMATURE GRANULOCYTES-RELATIVE PERCENT (BEAKER) 1 % 0-1 (test kejk=6255) POCT-GLUCOSE [id number] 22:07:00 Test Item Value Reference Range Comments POC-GLUCOSE METER (BEAKER) 183 mg/dL 70-110 TESTED AT [address] (test rpeq=7764) [facility] [address] POCT-GLUCOSE [id number] 18:23:00 Test Item Value Reference Range Comments POC-GLUCOSE METER (BEAKER) 174 mg/dL 70-[address] [facility] [address] (test wcfo=5159) [facility] [address] C. DIFFICILE GDH [id number] 15:36:00 Test Item Value Reference Range Comments CDT TOXIN (test Negative Negative oqul=[id number]) CDT GDH ANTIGEN (test Positive Negative C. difficile present but toxin peww=[id number]) not detected. Indicates colonization with non-toxigenic strain or level of toxin below detectable levels. No need for enteric isolation. Treatment is rarely needed (only when strong clinical suspicion for Clostridium difficile infection) Testing performed by Construct Rapid Cassette Assay. For GDH, published sensitivity of the assay is 98.7% compared to cytotoxicity testing. For Toxin AB, published sensitivity is 87.8% and specificity 99.4% compared to cytotoxicity testing.Verification of kit performance was done by the [facility] Microbiology Lab prior to clinical use.URINALYSIS W/ REFLEX URINE [id number] 15:18:00 Test Item Value Reference Range Comments COLOR (BEAKER) (test zrkm=269) Yellow CLARITY (BEAKER) (test abyq=851) Hazy SPECIFIC GRAVITY UA (BEAKER) (test yzue=118) 1.017 1.001-1.035 PH UA (BEAKER) (test hhzz=344) 5.5 5.0-8.0 PROTEIN UA (BEAKER) (test fapt=442) 30 mg/dL Negative GLUCOSE UA (BEAKER) (test pxgx=443) Negative Negative KETONES UA (BEAKER) (test wezy=416) Negative Negative BILIRUBIN UA (BEAKER) (test tlam=494) Negative Negative BLOOD UA (BEAKER) (test oufv=759) Trace Negative NITRITE UA (BEAKER) (test bsuu=078) Negative Negative LEUKOCYTE ESTERASE UA (BEAKER) (test zodf=736) Large Negative UROBILINOGEN UA (BEAKER) (test ohgm=908) 0.2 mg/dL 0.2-1.0 RBC UA (BEAKER) (test mpwj=913) 0 /HPF WBC UA (BEAKER) (test xbol=500) 190 /HPF BACTERIA (BEAKER) (test pbww=088) Many MUCUS (BEAKER) (test iahn=0039) Rare SQUAMOUS EPITHELIAL (BEAKER) (test cywc=756) 1 /HPF HYALINE CASTS (BEAKER) (test elay=612) 4 /LPF SOURCE(BEAKER) (test uhor=2742) POCT-GLUCOSE [id number] 13:03:00 Test Item Value Reference Range Comments POC-GLUCOSE METER (BEAKER) 213 mg/dL 70-110 TESTED AT [address] (test nmbv=1794) [place] [address] OCCULT BLOOD, [id number] 11:58:00 Test Item Value Reference Range Comments FECAL OCCULT BLOOD (BEAKER) (test gowo=654) Positive Negative POCT-GLUCOSE [id number] 08:00:00 Test Item Value Reference Range Comments POC-GLUCOSE METER (BEAKER) 127 mg/dL 70-110 TESTED AT [address] (test apzs=4845) [place] [address] TROPONIN [id number] 07:07:00 Test Item Value Reference Range Comments TROPONIN I (BEAKER) (test opfq=530) 44.85 ng/mL 0.00-0.03 Troponin I (TnI) levels [...] and persistent tachyarrhythmia.RAD, CHEST, 1 VIEW, NON [id number] 07:00:00Reason for exam:->SOBShould this be performed at [...] andmediastinum: Stable contours.Additional findings: None. Signed: JR Mary, Radha [place] Verified Date/Time: 08/04/2018 07:00: 06 Reading Location: [facility] [place] C[facility] Neuro Reading Room COMPREHENSIVE METABOLIC [id number] 06:56:00 Test Item Value Reference Range Comments TOTAL PROTEIN (BEAKER) 5.7 gm/dL 6.0-8.3 (test utmb=462) ALBUMIN (BEAKER) (test 3.2 g/dL 3.5-5.0 uezw=8299) ALKALINE PHOSPHATASE 55 U/L 40-150 (BEAKER) (test vmfe=842) BILIRUBIN TOTAL (BEAKER) 0.5 mg/dL 0.2-1.2 (test kwuy=202) SODIUM (BEAKER) (test 138 meq/L 136-145 xdpl=842) POTASSIUM (BEAKER) (test 3.7 meq/L 3.5-5.1 trrf=510) CHLORIDE (BEAKER) (test 107 meq/L 98-107 uycv=436) CO2 (BEAKER) (test 24 meq/L 22-29 fibg=134) BLOOD UREA NITROGEN 61 mg/dL 7-21 (BEAKER) (test jail=372) CREATININE (BEAKER) (test 2.88 mg/dL 0.57-1.25 bqkv=716) GLUCOSE RANDOM (BEAKER) 122 mg/dL 70-105 (test wsdp=156) CALCIUM (BEAKER) (test 8.1 mg/dL 8.4-10.2 sxyu=977) AST (SGOT) (BEAKER) (test 71 U/L 5-34 jszi=704) ALT (SGPT) (BEAKER) (test 23 U/L 6-55 rbmk=001) EGFR (BEAKER) (test 16 mL/min/1.73 sq m ESTIMATED GFR IS NOT tybo=8482) ACCURATE CREATININE CLEARANCE IN PREDICTING GLOMERULAR FILTRATION RATE. ESTIMATED GFR IS NOT APPLICABLE FOR DIALYSIS PATIENTS. [id number] 06:55:00 Test Item Value Reference Range Comments PHOSPHORUS (BEAKER) (test qgwj=828) 2.8 mg/dL 2.3-4.7 [id number] 06:55:00 Test Item Value Reference Range Comments MAGNESIUM (BEAKER) (test kyfx=578) 1.9 mg/dL 1.6-2.6 CBC W/PLT COUNT & AUTO [id number] 06:12:00 Test Item Value Reference Range Comments WHITE BLOOD CELL COUNT (BEAKER) (test ojph=541) 10.1 K/ L 3.5-10.5 RED BLOOD CELL COUNT (BEAKER) (test rrab=967) 3.03 M/ L 3.93-5.22 HEMOGLOBIN (BEAKER) (test kkqp=937) 9.3 GM/DL 11.2-15.7 HEMATOCRIT (BEAKER) (test kcab=252) 28.5 % 34.1-44.9 MEAN CORPUSCULAR VOLUME (BEAKER) (test exyq=841) 94.1 fL 79.4-94.8 MEAN CORPUSCULAR HEMOGLOBIN (BEAKER) (test 30.7 pg 25.6-32.2 jffg=874) MEAN CORPUSCULAR HEMOGLOBIN CONC (BEAKER) (test 32.6 GM/DL 32.2-35.5 bkcr=752) RED CELL DISTRIBUTION WIDTH (BEAKER) (test 13.4 % 11.7-14.4 lrlm=440) PLATELET COUNT (BEAKER) (test efzh=179) 151 K/CU MM 150-450 MEAN PLATELET VOLUME (BEAKER) (test zmnt=628) 10.5 fL 9.4-12.3 NUCLEATED RED BLOOD CELLS (BEAKER) (test 0 /100 WBC 0-0 izqp=633) NEUTROPHILS RELATIVE PERCENT (BEAKER) (test 77 % rdoy=177) LYMPHOCYTES RELATIVE PERCENT (BEAKER) (test 11 % hlux=496) MONOCYTES RELATIVE PERCENT (BEAKER) (test 11 % ejwq=862) EOSINOPHILS RELATIVE PERCENT (BEAKER) (test 1 % iafh=847) BASOPHILS RELATIVE PERCENT (BEAKER) (test 0 % pbjg=798) NEUTROPHILS ABSOLUTE COUNT (BEAKER) (test 7.78 K/ L 1.56-6.13 trdm=335) LYMPHOCYTES ABSOLUTE COUNT (BEAKER) (test 1.08 K/ L 1.18-3.74 gvbr=727) MONOCYTES ABSOLUTE COUNT (BEAKER) (test 1.09 K/ L 0.24-0.36 pmfo=237) EOSINOPHILS ABSOLUTE COUNT (BEAKER) (test 0.07 K/ L 0.04-0.36 lbdg=603) BASOPHILS ABSOLUTE COUNT (BEAKER) (test 0.02 K/ L 0.01-0.08 oulm=979) IMMATURE GRANULOCYTES-RELATIVE PERCENT (BEAKER) 1 % 0-1 (test yrel=3055) CALCIUM, [id number] 05:58:00 Test Item Value Reference Range Comments CALCIUM IONIZED (BEAKER) (test ypfq=155) 1.11 mmol/L 1.12-1.27 PH, BLOOD (BEAKER) (test gtgr=5983) 7.38 POCT-GLUCOSE [id number] 22:08:00 Test Item Value Reference Range Comments POC-GLUCOSE METER (BEAKER) 163 mg/dL 70-110 TESTED AT [address] (test bnwy=0289) [place] [address] POCT-GLUCOSE [id number] 18:05:00 Test Item Value Reference Range Comments POC-GLUCOSE METER (BEAKER) 215 mg/dL 70-110 TESTED AT [address] (test zkgs=1198) [place] [address] POCT-GLUCOSE [id number] 12:33:00 Test Item Value Reference Range Comments POC-GLUCOSE METER (BEAKER) 287 mg/dL 70-110 TESTED AT [address] (test yhnj=5965) [place] [address] TROPONIN [id number] 10:28:00 Test Item Value Reference Range Comments TROPONIN I (BEAKER) (test socs=518) 56.87 ng/mL 0.00-0.03 Troponin I (TnI) levels [...] Range Comments CREATINE KINASE TOTAL (BEAKER) (test npdj=924) 601 U/L 29-200 RAD, CHEST, 1 VIEW, NON [id number] 08:51:00Reason for exam:->SOBShould this be performed at [...] MDReport Verified Date/Time: 08/03/2018 08:51:22 Reading Location: [facility] Radiology Reading Room [id number] 03:08:00 Test Item Value Reference Range Comments FERRITIN (BEAKER) (test rpjg=950) 207 ng/mL 5-275 VITAMIN B12 AND [id number] 03:08:00 Test Item Value Reference Range Comments VITAMIN B12 (BEAKER) (test ucvi=050) 212 pg/mL 213-816 FOLATE (BEAKER) (test lpym=862) 15.1 ng/mL >=7.0 COMPREHENSIVE METABOLIC [id number] 02:38:00 Test Item Value Reference Range Comments TOTAL PROTEIN (BEAKER) 5.7 gm/dL 6.0-8.3 (test vlez=696) ALBUMIN (BEAKER) (test 3.2 g/dL 3.5-5.0 jjhn=0208) ALKALINE PHOSPHATASE 55 U/L 40-150 (BEAKER) (test snbd=715) BILIRUBIN TOTAL (BEAKER) 0.5 mg/dL 0.2-1.2 (test svcb=660) SODIUM (BEAKER) (test 139 meq/L 136-145 atzf=991) POTASSIUM (BEAKER) (test 4.6 meq/L 3.5-5.1 ctpg=648) CHLORIDE (BEAKER) (test 107 meq/L 98-107 vjpa=729) CO2 (BEAKER) (test 24 meq/L 22-29 eayn=136) BLOOD UREA NITROGEN 63 mg/dL 7-21 (BEAKER) (test uoth=497) CREATININE (BEAKER) (test 2.96 mg/dL 0.57-1.25 fyym=323) GLUCOSE RANDOM (BEAKER) 205 mg/dL 70-105 (test pzir=383) CALCIUM (BEAKER) (test 8.7 mg/dL 8.4-10.2 gatg=350) AST (SGOT) (BEAKER) (test 138 U/L 5-34 xfks=829) ALT (SGPT) (BEAKER) (test 28 U/L 6-55 opuy=871) EGFR (BEAKER) (test 15 mL/min/1.73 sq m ESTIMATED GFR IS NOT gwyz=3184) ACCURATE CREATININE CLEARANCE IN PREDICTING GLOMERULAR FILTRATION RATE. ESTIMATED GFR IS NOT APPLICABLE FOR DIALYSIS PATIENTS. [id number] 02:34:00 Test Item Value Reference Range Comments PHOSPHORUS (BEAKER) (test wvsm=508) 4.7 mg/dL 2.3-4.7 [id number] 02:34:00 Test Item Value Reference Range Comments MAGNESIUM (BEAKER) (test solc=441) 2.0 mg/dL 1.6-2.6 IRON, TIBC, % SAT. (WITHOUT FERRITIN)2018-08-03 02:34:00 Test Item Value Reference Range Comments IRON (BEAKER) (test urwz=577) 27.0 ug/dL 40.0-160.0 TOTAL IRON BINDING CAPACITY (BEAKER) (test 221 ug/dL 250-450 ayxq=049) IRON % SATURATION (2) (BEAKER) (test pkdx=9506) 12 % 20-55 CALCIUM, [id number] 02:26:00 Test Item Value Reference Range Comments CALCIUM IONIZED (BEAKER) (test adwo=458) 1.12 mmol/L 1.12-1.27 PH, BLOOD (BEAKER) (test yzuu=1635) 7.27 CBC W/PLT COUNT & AUTO [id number] 02:20:00 Test Item Value Reference Range Comments WHITE BLOOD CELL COUNT (BEAKER) (test kgbj=107) 12.5 K/ L 3.5-10.5 RED BLOOD CELL COUNT (BEAKER) (test wjvb=623) 3.39 M/ L 3.93-5.22 HEMOGLOBIN (BEAKER) (test qkph=245) 10.4 GM/DL 11.2-15.7 HEMATOCRIT (BEAKER) (test gfrh=725) 32.5 % 34.1-44.9 MEAN CORPUSCULAR VOLUME (BEAKER) (test aywk=018) 95.9 fL 79.4-94.8 MEAN CORPUSCULAR HEMOGLOBIN (BEAKER) (test 30.7 pg 25.6-32.2 lonx=933) MEAN CORPUSCULAR HEMOGLOBIN CONC (BEAKER) (test 32.0 GM/DL 32.2-35.5 nzvn=553) RED CELL DISTRIBUTION WIDTH (BEAKER) (test 13.6 % 11.7-14.4 edcv=053) PLATELET COUNT (BEAKER) (test hboj=820) 155 K/CU MM 150-450 MEAN PLATELET VOLUME (BEAKER) (test pqzn=760) 10.4 fL 9.4-12.3 NUCLEATED RED BLOOD CELLS (BEAKER) (test 0 /100 WBC 0-0 oebt=575) NEUTROPHILS RELATIVE PERCENT (BEAKER) (test 83 % wemn=745) LYMPHOCYTES RELATIVE PERCENT (BEAKER) (test 8 % lbjs=830) MONOCYTES RELATIVE PERCENT (BEAKER) (test 9 % qhmh=001) EOSINOPHILS RELATIVE PERCENT (BEAKER) (test 0 % prrd=896) BASOPHILS RELATIVE PERCENT (BEAKER) (test 0 % hond=655) NEUTROPHILS ABSOLUTE COUNT (BEAKER) (test 10.32 K/ L 1.56-6.13 eoql=345) LYMPHOCYTES ABSOLUTE COUNT (BEAKER) (test 1.01 K/ L 1.18-3.74 ofbh=055) MONOCYTES ABSOLUTE COUNT (BEAKER) (test 1.07 K/ L 0.24-0.36 dlfj=495) EOSINOPHILS ABSOLUTE COUNT (BEAKER) (test 0.01 K/ L 0.04-0.36 mrrn=316) BASOPHILS ABSOLUTE COUNT (BEAKER) (test 0.03 K/ L 0.01-0.08 uvxg=757) IMMATURE GRANULOCYTES-RELATIVE PERCENT (BEAKER) 1 % 0-1 (test zguu=1757) RETICULOCYTE [id number] 02:16:00 Test Item Value Reference Range Comments RETICULOCYTE COUNT PCT (BEAKER) (test atfv=151) 2.7 % 0.5-1.7 POCT-GLUCOSE [id number] 01:12:00 Test Item Value Reference Range Comments POC-GLUCOSE METER (BEAKER) 239 mg/dL 70-110 TESTED AT [address] (test uxsz=2225) [place] [id number] POCT-GLUCOSE [id number] 20:38:00 Test Item Value Reference Range Comments POC-GLUCOSE METER (BEAKER) 207 mg/dL 70-110 TESTED AT [address] (test kksz=6329) [place] [id number] POCT-GLUCOSE [id number] 16:39:00 Test Item Value Reference Range Comments POC-GLUCOSE METER (BEAKER) 216 mg/dL 70-110 TESTED AT [address] (test foxa=9955) [place] [address] [id number] 12:20:00 Test Item Value Reference Range Comments PARTIAL THROMBOPLASTIN TIME (BEAKER) (test 36.6 seconds 22.5-36.0 nrxu=933) 4 hours after the start of continuous infusion and 4 hours after any rate changePOCT-GLUCOSE [id number] 12:03:00 Test Item Value Reference Range Comments POC-GLUCOSE METER (BEAKER) 206 mg/dL 70-110 TESTED AT [address] (test fnej=5165) [place] [id number] POCT-GLUCOSE [id number] 12:03:00 Test Item Value Reference Range Comments POC-GLUCOSE METER (BEAKER) 193 mg/dL 70-110 TESTED AT [address] (test jlhi=4697) [place] [id number] POCT-GLUCOSE [id number] 12:02:00 Test Item Value Reference Range Comments POC-GLUCOSE METER (BEAKER) 234 mg/dL 70-110 TESTED AT [address] (test qivf=2109) [place] [id number] POCT-GLUCOSE [id number] 12:02:00 Test Item Value Reference Range Comments POC-GLUCOSE METER (BEAKER) 211 mg/dL 70-110 TESTED AT [address] (test edyd=7358) [place] [address] U/S, RENAL, [id number] 08:45:00Reason for exam:->CKDFINAL REPORT TECHNIQUE: Grayscale ultrasound [...] be obtained for further evaluation. Signed: Rob Navaror MDReport Verified Date/Time: 08/02/2018 08: 45:50 Reading Location: [address] Radiology Reading Room Electronically signedby: ROB NAVARRO MD on 08/02/2018 08:45 AMPOCT-GLUCOSE [id number] 08:25:00 Test Item Value Reference Range Comments POC-GLUCOSE METER (BEAKER) 237 mg/dL 70-110 TESTED AT [address] (test whsx=4968) [facility] [address] [id number] 08:19:00 Test Item Value Reference Range Comments PARTIAL THROMBOPLASTIN TIME (BEAKER) (test 38.2 seconds 22.5-36.0 mihh=518) 4 hours after the start of continuous infusion and 4 hours after any rate changePOCT-GLUCOSE [id number] 07:14:00 Test Item Value Reference Range Comments POC-GLUCOSE METER (BEAKER) 246 mg/dL 70-110 TESTED AT [address] (test ixwm=5063) [facility] [address] COMPREHENSIVE METABOLIC [id number] 04:58:00 Test Item Value Reference Range Comments TOTAL PROTEIN (BEAKER) 5.5 gm/dL 6.0-8.3 Specimen slightly (test pxdz=173) hemolyzed ALBUMIN (BEAKER) (test 3.1 g/dL 3.5-5.0 Specimen slightly llbo=1958) hemolyzed ALKALINE PHOSPHATASE 54 U/L 40-150 (BEAKER) (test nitp=310) BILIRUBIN TOTAL (BEAKER) 0.7 mg/dL 0.2-1.2 Specimen slightly (test xnum=111) hemolyzed SODIUM (BEAKER) (test 135 meq/L 136-145 vnrj=519) POTASSIUM (BEAKER) (test 4.8 meq/L 3.5-5.1 Specimen slightly ijpr=016) hemolyzed CHLORIDE (BEAKER) (test 108 meq/L 98-107 bhrm=325) CO2 (BEAKER) (test 18 meq/L 22-29 jufc=142) BLOOD UREA NITROGEN 57 mg/dL 7-21 (BEAKER) (test yxrc=618) CREATININE (BEAKER) (test 2.27 mg/dL 0.57-1.25 Specimen slightly cjgw=227) hemolyzed GLUCOSE RANDOM (BEAKER) 289 mg/dL 70-105 (test xymq=601) CALCIUM (BEAKER) (test 8.6 mg/dL 8.4-10.2 gied=548) AST (SGOT) (BEAKER) (test 94 U/L 5-34 Specimen slightly hskk=932) hemolyzed ALT (SGPT) (BEAKER) (test 20 U/L 6-55 Specimen slightly pvxn=764) hemolyzed EGFR (BEAKER) (test 21 mL/min/1.73 sq m ESTIMATED GFR IS NOT xlxn=3489) ACCURATE CREATININE CLEARANCE IN PREDICTING GLOMERULAR FILTRATION RATE. ESTIMATED GFR IS NOT APPLICABLE FOR DIALYSIS PATIENTS. [id number] 04:52:00 Test Item Value Reference Range Comments PARTIAL THROMBOPLASTIN TIME (BEAKER) (test 37.5 seconds 22.5-36.0 wsgn=336) 4 hours after the start of continuous infusion and 4 hours after any rate changeRAD, CHEST, 1 VIEW, NON [id number] 04:44:00Reason for exam:-> impella positionShould this be [...] NATRIURETIC PEPTIDE (BEAKER) (test 1452 pg/mL 0-100 wnsg=875) [id number] 04:40:00 Test Item Value Reference Range Comments MAGNESIUM (BEAKER) (test 2.0 mg/dL 1.6-2.6 Specimen slightly hemolyzed yfnr=208) [id number] 04:40:00 Test Item Value Reference Range Comments PHOSPHORUS (BEAKER) (test 4.7 mg/dL 2.3-4.7 Specimen slightly hemolyzed lvci=038) URIC [id number] 04:40:00 Test Item Value Reference Range Comments URIC ACID (BEAKER) (test 9.1 mg/dL 2.6-7.2 Specimen slightly hemolyzed gqwe=951) LACTIC ACID, [id number] 04:31:00 Test Item Value Reference Range Comments LACTATE BLOOD ARTERIAL (2) 0.9 mmol/L 0.5-2.2 Specimen slightly hemolyzed (BEAKER) (test hlon=6749) BLOOD GAS, [id number] 04:25:00 Test Item Value Reference Range Comments PH ARTERIAL (BEAKER) (test syre=466) 7.31 7.35-7.45 PCO2 ARTERIAL (BEAKER) (test resq=820) 40 mmHg 35-45 PO2 ARTERIAL (BEAKER) (test ueqy=095) 90 mmHg 80-90 O2 SATURATION ARTERIAL (BEAKER) (test oere=928) 96.3 % 96.0-97.0 HCO3 ARTERIAL (BEAKER) (test dqwg=226) 20 mmol/L 21-29 BASE EXCESS ARTERIAL (BEAKER) (test jkng=166) -6.1 mmol/L -2.0-3.0 PATIENT TEMPERATURE (BEAKER) (test gmtq=3336) 36.7 C FIO2 (BEAKER) (test kfgg=7291) 36.0 % GLUCOSE-STAT [id number] 04:25:00 Test Item Value Reference Range Comments GLUCOSE RANDOM (BEAKER) (test zsdv=620) 272 mg/dL 70-110 HGB/HCT (H&H) - STAT [id number] 04:25:00 Test Item Value Reference Range Comments HEMOGLOBIN (BEAKER) (test zlua=773) 10.9 g/dL 12.0-15.0 HEMATOCRIT (BEAKER) (test hflt=596) 32.0 % 36.0-45.0 CBC W/PLT COUNT & AUTO [id number] 04:24:00 Test Item Value Reference Range Comments WHITE BLOOD CELL COUNT (BEAKER) (test woff=027) 14.8 K/ L 3.5-10.5 RED BLOOD CELL COUNT (BEAKER) (test ffcq=550) 3.43 M/ L 3.93-5.22 HEMOGLOBIN (BEAKER) (test erfv=122) 10.3 GM/DL 11.2-15.7 HEMATOCRIT (BEAKER) (test cxdq=815) 32.3 % 34.1-44.9 MEAN CORPUSCULAR VOLUME (BEAKER) (test avxb=066) 94.2 fL 79.4-94.8 MEAN CORPUSCULAR HEMOGLOBIN (BEAKER) (test 30.0 pg 25.6-32.2 yrgn=368) MEAN CORPUSCULAR HEMOGLOBIN CONC (BEAKER) (test 31.9 GM/DL 32.2-35.5 ewlz=494) RED CELL DISTRIBUTION WIDTH (BEAKER) (test 13.2 % 11.7-14.4 kwll=183) PLATELET COUNT (BEAKER) (test czwt=559) 171 K/CU MM 150-450 MEAN PLATELET VOLUME (BEAKER) (test pirn=131) 10.1 fL 9.4-12.3 NUCLEATED RED BLOOD CELLS (BEAKER) (test 0 /100 WBC 0-0 frxx=915) NEUTROPHILS RELATIVE PERCENT (BEAKER) (test 84 % sjwn=361) LYMPHOCYTES RELATIVE PERCENT (BEAKER) (test 9 % tlsu=683) MONOCYTES RELATIVE PERCENT (BEAKER) (test 7 % wnnj=030) EOSINOPHILS RELATIVE PERCENT (BEAKER) (test 0 % zarc=471) BASOPHILS RELATIVE PERCENT (BEAKER) (test 0 % rmsy=431) NEUTROPHILS ABSOLUTE COUNT (BEAKER) (test 12.38 K/ L 1.56-6.13 vkhh=249) LYMPHOCYTES ABSOLUTE COUNT (BEAKER) (test 1.30 K/ L 1.18-3.74 ftwg=013) MONOCYTES ABSOLUTE COUNT (BEAKER) (test 1.04 K/ L 0.24-0.36 vhcx=417) EOSINOPHILS ABSOLUTE COUNT (BEAKER) (test 0.00 K/ L 0.04-0.36 lrqr=198) BASOPHILS ABSOLUTE COUNT (BEAKER) (test 0.02 K/ L 0.01-0.08 uuof=489) IMMATURE GRANULOCYTES-RELATIVE PERCENT (BEAKER) 1 % 0-1 (test xzhn=4292) CALCIUM, [id number] 04:22:00 Test Item Value Reference Range Comments CALCIUM IONIZED (BEAKER) (test xsdv=366) 1.20 mmol/L 1.12-1.27 PH, BLOOD (BEAKER) (test flft=2476) 7.31 SODIUM NA-STAT [id number] 04:21:00 Test Item Value Reference Range Comments SODIUM (BEAKER) (test xvda=351) 136 meq/L 135-148 POTASSIUM-STAT [id number] 04:21:00 Test Item Value Reference Range Comments POTASSIUM (BEAKER) (test qkvz=927) 4.6 meq/L 3.6-5.5 LACTIC ACID, [id number] 00:13:00 Test Item Value Reference Range Comments LACTATE BLOOD ARTERIAL (2) (BEAKER) (test 0.7 mmol/L 0.5-2.2 sfcx=6958) SODIUM NA-STAT [id number] 23:59:00 Test Item Value Reference Range Comments SODIUM (BEAKER) (test roxd=617) 136 meq/L 135-148 POTASSIUM-STAT [id number] 23:59:00 Test Item Value Reference Range Comments POTASSIUM (BEAKER) (test kjma=224) 4.8 meq/L 3.6-5.5 BLOOD GAS, [id number] 23:59:00 Test Item Value Reference Range Comments PH ARTERIAL (BEAKER) (test tsks=477) 7.31 7.35-7.45 PCO2 ARTERIAL (BEAKER) (test arsj=630) 42 mmHg 35-45 PO2 ARTERIAL (BEAKER) (test jfgl=001) 78 mmHg 80-90 O2 SATURATION ARTERIAL (BEAKER) (test opdb=408) 94.7 % 96.0-97.0 HCO3 ARTERIAL (BEAKER) (test nkiq=492) 21 mmol/L 21-29 BASE EXCESS ARTERIAL (BEAKER) (test fbib=678) -5.2 mmol/L -2.0-3.0 PATIENT TEMPERATURE (BEAKER) (test yyrx=7073) 36.7 C FIO2 (BEAKER) (test ftrk=5252) 36.0 % GLUCOSE-STAT [id number] 23:59:00 Test Item Value Reference Range Comments GLUCOSE RANDOM (BEAKER) (test myjx=182) 275 mg/dL 70-110 HGB/HCT (H&H) - STAT [id number] 23:59:00 Test Item Value Reference Range Comments HEMOGLOBIN (BEAKER) (test prlk=972) 11.3 g/dL 12.0-15.0 HEMATOCRIT (BEAKER) (test pcdz=450) 33.0 % 36.0-45.0 [id number] 21:53:00 Test Item Value Reference Range Comments PARTIAL THROMBOPLASTIN TIME (BEAKER) (test 63.4 seconds 22.5-36.0 lnse=673) 4 hours after the start of continuous infusion and 4 hours after any rate changeCOMPREHENSIVE METABOLIC [id number] 19:43:00 Test Item Value Reference Range Comments TOTAL PROTEIN (BEAKER) 5.8 gm/dL 6.0-8.3 Specimen slightly (test osjk=190) hemolyzed ALBUMIN (BEAKER) (test 3.3 g/dL 3.5-5.0 Specimen slightly woqa=0772) hemolyzed ALKALINE PHOSPHATASE 57 U/L 40-150 (BEAKER) (test rppj=667) BILIRUBIN TOTAL (BEAKER) 0.9 mg/dL 0.2-1.2 Specimen slightly (test tpji=862) hemolyzed SODIUM (BEAKER) (test 137 meq/L 136-145 puvs=257) POTASSIUM (BEAKER) (test 4.8 meq/L 3.5-5.1 Specimen slightly cgug=141) hemolyzed CHLORIDE (BEAKER) (test 109 meq/L 98-107 idtn=752) CO2 (BEAKER) (test 20 meq/L 22-29 klwe=653) BLOOD UREA NITROGEN 56 mg/dL 7-21 (BEAKER) (test kwzg=619) CREATININE (BEAKER) (test 2.26 mg/dL 0.57-1.25 Specimen slightly omvu=196) hemolyzed GLUCOSE RANDOM (BEAKER) 235 mg/dL 70-105 (test zoje=558) CALCIUM (BEAKER) (test 9.2 mg/dL 8.4-10.2 wnzq=007) AST (SGOT) (BEAKER) (test 27 U/L 5-34 Specimen slightly kguo=454) hemolyzed ALT (SGPT) (BEAKER) (test 13 U/L 6-55 Specimen slightly ndau=581) hemolyzed EGFR (BEAKER) (test 21 mL/min/1.73 sq m ESTIMATED GFR IS NOT jbtt=4268) ACCURATE CREATININE CLEARANCE IN PREDICTING GLOMERULAR FILTRATION RATE. ESTIMATED GFR IS NOT APPLICABLE FOR DIALYSIS PATIENTS. Call k > 5, [id number] 19:41:00 Test Item Value Reference Range Comments SODIUM (BEAKER) (test nnev=907) 137 meq/L 136-145 POTASSIUM (BEAKER) (test 4.8 meq/L 3.5-5.1 Specimen slightly hemolyzed woms=415) CHLORIDE (BEAKER) (test 109 meq/L 98-107 lfno=901) CO2 (BEAKER) (test wxcv=500) 20 meq/L 22-29 Call k > 5, [id number] 19:37:00 Test Item Value Reference Range Comments PROTIME (BEAKER) (test mbkb=381) 33.9 seconds 11.9-14.2 INR (BEAKER) (test frzm=735) 3.6 <=5.9 PARTIAL THROMBOPLASTIN TIME (BEAKER) (test 85.5 seconds 22.5-36.0 tpfp=228) Effective 07/18/2018: PT Reference Range ChangeNew: 11.9-14.2 Previous: 11.7- 14.7RECOMMENDED COUMADIN/WARFARIN INR THERAPY RANGESSTANDARD DOSE: 2.0-3.0 Includes: PROPHYLAXIS for venous thrombosis, systemic embolization; TREATMENT for venous thrombosis and/or pulmonary embolus.HIGH RISK: Target INR is2.5-3.5 for patients wiht mechanical heart valves.[id number] 19:36:00 Test Item Value Reference Range Comments FIBRINOGEN LEVEL (BEAKER) (test lgtp=750) 336 mg/dl 225-434 LACTIC ACID, [id number] 19:34:00 Test Item Value Reference Range Comments LACTATE BLOOD ARTERIAL (2) 1.3 mmol/L 0.5-2.2 Specimen slightly hemolyzed (BEAKER) (test vhfa=2744) CBC (HEMOGRAM ONLY)[id number] 19:23:00 Test Item Value Reference Range Comments WHITE BLOOD CELL COUNT (BEAKER) (test goau=090) 14.1 K/ L 3.5-10.5 RED BLOOD CELL COUNT (BEAKER) (test onwq=473) 3.68 M/ L 3.93-5.22 HEMOGLOBIN (BEAKER) (test zdrz=382) 11.3 GM/DL 11.2-15.7 HEMATOCRIT (BEAKER) (test teex=369) 34.6 % 34.1-44.9 MEAN CORPUSCULAR VOLUME (BEAKER) (test towx=434) 94.0 fL 79.4-94.8 MEAN CORPUSCULAR HEMOGLOBIN (BEAKER) (test 30.7 pg 25.6-32.2 gcpo=033) MEAN CORPUSCULAR HEMOGLOBIN CONC (BEAKER) (test 32.7 GM/DL 32.2-35.5 njna=185) RED CELL DISTRIBUTION WIDTH (BEAKER) (test 13.1 % 11.7-14.4 nlre=185) PLATELET COUNT (BEAKER) (test ajan=123) 207 K/CU MM 150-450 MEAN PLATELET VOLUME (BEAKER) (test nlvy=693) 9.9 fL 9.4-12.3 NUCLEATED RED BLOOD CELLS (BEAKER) (test 0 /100 WBC 0-0 iugk=220) BLOOD GAS, [id number] 19:16:00 Test Item Value Reference Range Comments PH ARTERIAL (BEAKER) (test kjir=832) 7.35 7.35-7.45 PCO2 ARTERIAL (BEAKER) (test vbrd=462) 39 mmHg 35-45 PO2 ARTERIAL (BEAKER) (test wgwu=596) 50 mmHg 80-90 O2 SATURATION ARTERIAL (BEAKER) (test oido=711) 84.5 % 96.0-97.0 HCO3 ARTERIAL (BEAKER) (test yfaa=458) 21 mmol/L 21-29 BASE EXCESS ARTERIAL (BEAKER) (test xwhy=478) -4.5 mmol/L -2.0-3.0 PATIENT TEMPERATURE (BEAKER) (test wbjf=3994) 36.7 C FIO2 (BEAKER) (test xdtp=6869) 36.0 % GLUCOSE-STAT [id number] 19:16:00 Test Item Value Reference Range Comments GLUCOSE RANDOM (BEAKER) (test dxrq=671) 231 mg/dL 70-110 HGB/HCT (H&H) - STAT [id number] 19:16:00 Test Item Value Reference Range Comments HEMOGLOBIN (BEAKER) (test ouui=046) 11.5 g/dL 12.0-15.0 HEMATOCRIT (BEAKER) (test xjjf=480) 34.0 % 36.0-45.0 CALCIUM, [id number] 19:15:00 Test Item Value Reference Range Comments CALCIUM IONIZED (BEAKER) (test stcc=319) 1.26 mmol/L 1.12-1.27 PH, BLOOD (BEAKER) (test rnyk=7034) 7.35 OXYGEN SATURATION, [id number] 19:14:00 Test Item Value Reference Range Comments O2 SATURATION (MEASURED) (BEAKER) (test dvry=1277) 41.9 % SODIUM NA-STAT [id number] 19:14:00 Test Item Value Reference Range Comments SODIUM (BEAKER) (test twab=881) 138 meq/L 135-148 POTASSIUM-STAT [id number] 19:14:00 Test Item Value Reference Range Comments POTASSIUM (BEAKER) (test czwc=787) 4.7 meq/L 3.6-5.5 [id number] 16:45:00 Test Item Value Reference Range Comments ACTIVATED CLOTTING TIME 389 sec TESTED AT [place] [address] [facility] (BEAKER) (test rhsi=685) [place] [id number] HEMOGLOBIN AND [id number] 16:38:00 Test Item Value Reference Range Comments HEMOGLOBIN (BEAKER) (test tvqc=033) 10.1 GM/DL 11.2-15.7 HEMATOCRIT (BEAKER) (test usjq=884) 31.6 % 34.1-44.9 PLATELET AGGREGATION: FUNCTION [id number] 16:05:00 Test Item Value Reference Range Comments WEAK ADP RESULT(BEAKER) (test 34 % 60-91 gjam=5112) PLATELET FUNCTION SCREEN 0-39% indicates marked platelet INTERP (BEAKER) (test dysfunction zvfz=9954) [id number] Talia Villarreal MD (BEAKER) (test utxr=2016) (electronic signature) PLATELET COUNT AGG (BEAKER) 186 K/CU MM 150-450 (test tueq=7366) Platelet Function Screen results may be falsely low with platelet counts<100, 000/cu mm.[id number] 15:02:00 Test Item Value Reference Range Comments ACTIVATED CLOTTING TIME 411 sec TESTED AT [place] [address] [facility] (BEAKER) (test mdof=287) [place] [id number] POCT-GLUCOSE [id number] 12:17:00 Test Item Value Reference Range Comments POC-GLUCOSE METER (BEAKER) 103 mg/dL 70-110 TESTED AT [address] (test ljzk=5902) [place] [id number] POCT-GLUCOSE [id number] 08:18:00 Test Item Value Reference Range Comments POC-GLUCOSE METER (BEAKER) 388 mg/dL 70-110 TESTED AT [address] (test foys=0799) [place] [id number] HEPATIC FUNCTION [id number] 08:09:00 Test Item Value Reference Range Comments TOTAL PROTEIN (BEAKER) (test 6.2 gm/dL 6.0-8.3 Specimen slightly hemolyzed ppzr=771) ALBUMIN (BEAKER) (test 3.4 g/dL 3.5-5.0 Specimen slightly hemolyzed szmg=7173) BILIRUBIN TOTAL (BEAKER) (test 0.4 mg/dL 0.2-1.2 Specimen slightly hemolyzed mkmr=720) BILIRUBIN DIRECT (BEAKER) (test 0.1 mg/dL 0.1-0.5 Specimen slightly hemolyzed znrc=479) ALKALINE PHOSPHATASE (BEAKER) 59 U/L 40-150 (test thrp=685) AST (SGOT) (BEAKER) (test 19 U/L 5-34 Specimen slightly hemolyzed rsvm=528) ALT (SGPT) (BEAKER) (test 10 U/L 6-55 Specimen slightly hemolyzed jjov=168) TROPONIN [id number] 06:39:00 Test Item Value Reference Range Comments TROPONIN I (BEAKER) (test fohd=633) 0.26 ng/mL 0.00-0.03 Troponin I (TnI) levels [...] acidosis, acute neurological disease, and persistent tachyarrhythmia.POCT-GLUCOSE [id number] 06:36:00 Test Item Value Reference Range Comments POC-GLUCOSE METER (BEAKER) 415 mg/dL 70-[address] [facility] [address] [facility] (test cddd=2719) [facility] [address] BASIC METABOLIC [id number] 06:10:00 Test Item Value Reference Range Comments SODIUM (BEAKER) (test 135 meq/L 136-145 kcig=411) POTASSIUM (BEAKER) (test 4.9 meq/L 3.5-5.1 Specimen slightly tbay=899) hemolyzed CHLORIDE (BEAKER) (test 104 meq/L 98-107 vmmr=704) CO2 (BEAKER) (test 21 meq/L 22-29 jtbw=985) BLOOD UREA NITROGEN 53 mg/dL 7-21 (BEAKER) (test ndre=228) CREATININE (BEAKER) (test 2.28 mg/dL 0.57-1.25 Specimen slightly wzvx=310) hemolyzed GLUCOSE RANDOM (BEAKER) 473 mg/dL 70-105 (test nxol=859) CALCIUM (BEAKER) (test 8.7 mg/dL 8.4-10.2 bllv=906) EGFR (BEAKER) (test 21 mL/min/1.73 sq m ESTIMATED GFR IS NOT sbks=9971) ACCURATE CREATININE CLEARANCE IN PREDICTING GLOMERULAR FILTRATION RATE. ESTIMATED GFR IS NOT APPLICABLE FOR DIALYSIS PATIENTS. [id number] 06:03:00 Test Item Value Reference Range Comments MAGNESIUM (BEAKER) (test 2.2 mg/dL 1.6-2.6 Specimen slightly hemolyzed rmjb=109) THROMBIN [id number] 05:09:00 Test Item Value Reference Range Comments THROMBIN TIME (BEAKER) (test ecpm=376) 64.9 secs 13.8-20.0 Draw baseline aPTT prior to [id number] 05:08:00 Test Item Value Reference Range Comments PARTIAL THROMBOPLASTIN TIME (BEAKER) (test 43.1 seconds 22.5-36.0 blzp=840) Draw baseline aPTT prior to infusionPROTHROMBIN TIME/[id number] 05:07:00 Test Item Value Reference Range Comments PROTIME (BEAKER) (test xikg=406) 15.0 seconds 11.9-14.2 INR (BEAKER) (test luep=500) 1.2 <=5.9 Effective 07/18/2018: PT Reference Range ChangeNew: 11.9-14.2 Previous: 11.7- 14.7RECOMMENDED COUMADIN/WARFARIN INR THERAPY RANGESSTANDARD DOSE: 2.0-3.0 Includes: PROPHYLAXIS for venous thrombosis, systemic embolization; TREATMENT for venous thrombosis and/or pulmonary embolus.HIGH RISK: Target INR is2.5-3.5 for patients wiht mechanical heart valves.Draw baseline aPTT prior to infusionCBC W/PLT COUNT & AUTO [id number] 04:59:00 Test Item Value Reference Range Comments WHITE BLOOD CELL COUNT (BEAKER) (test mjbm=529) 7.0 K/ L 3.5-10.5 RED BLOOD CELL COUNT (BEAKER) (test zbwi=112) 3.82 M/ L 3.93-5.22 HEMOGLOBIN (BEAKER) (test fpcb=428) 11.7 GM/DL 11.2-15.7 HEMATOCRIT (BEAKER) (test crsv=554) 35.9 % 34.1-44.9 MEAN CORPUSCULAR VOLUME (BEAKER) (test npud=416) 94.0 fL 79.4-94.8 MEAN CORPUSCULAR HEMOGLOBIN (BEAKER) (test 30.6 pg 25.6-32.2 qfpg=114) MEAN CORPUSCULAR HEMOGLOBIN CONC (BEAKER) (test 32.6 GM/DL 32.2-35.5 ykaw=202) RED CELL DISTRIBUTION WIDTH (BEAKER) (test 12.8 % 11.7-14.4 pxfk=805) PLATELET COUNT (BEAKER) (test kcaz=862) 225 K/CU MM 150-450 MEAN PLATELET VOLUME (BEAKER) (test tdxi=024) 10.5 fL 9.4-12.3 NUCLEATED RED BLOOD CELLS (BEAKER) (test 0 /100 WBC 0-0 uqmp=032) NEUTROPHILS RELATIVE PERCENT (BEAKER) (test 87 % twnh=174) LYMPHOCYTES RELATIVE PERCENT (BEAKER) (test 10 % uvbn=319) MONOCYTES RELATIVE PERCENT (BEAKER) (test 2 % ekmf=601) EOSINOPHILS RELATIVE PERCENT (BEAKER) (test 0 % ohye=968) BASOPHILS RELATIVE PERCENT (BEAKER) (test 0 % indh=202) NEUTROPHILS ABSOLUTE COUNT (BEAKER) (test 6.10 K/ L 1.56-6.13 lgbw=604) LYMPHOCYTES ABSOLUTE COUNT (BEAKER) (test 0.72 K/ L 1.18-3.74 fkkq=402) MONOCYTES ABSOLUTE COUNT (BEAKER) (test 0.14 K/ L 0.24-0.36 ewhj=215) EOSINOPHILS ABSOLUTE COUNT (BEAKER) (test 0.00 K/ L 0.04-0.36 oaqt=994) BASOPHILS ABSOLUTE COUNT (BEAKER) (test 0.01 K/ L 0.01-0.08 ekiu=260) IMMATURE GRANULOCYTES-RELATIVE PERCENT (BEAKER) 1 % 0-1 (test lics=7681) RAD, CHEST, 1 VIEW, NON [id number] 04:33:00Reason for exam:->preopShould this be performed at the bedside?->YesFINAL REPORT RAD, CHEST, 1 VIEW, NON DEPT INDICATION: preop COMPARISON: Prior day's exam FINDINGS: Portable frontal view of the chest. IMPRESSION: Support Lines: Stable. Lungs and pleura: Unchanged airspace and pleural opacities. No pneumothorax.Heart and mediastinum: Stable contours. Additional findings: None. Signed: Desire Méndez Verified Date/Time: 08/01/2018 04:33:15 RAD , CHEST, 1 VIEW, NON [id number] 00:02:00Reason for exam:->Intraaortic balloon pump insertionShould this [...] MÉNDEZ MD on08/01/2018 12:02 AMTSH/FREE T4 IF [id number] 21:34:00 Test Item Value Reference Range Comments THYROID STIMULATING HORMONE (BEAKER) (test 0.99 uIU/mL 0.35-4.94 ubow=327) TROPONIN [id number] 21:26:00 Test Item Value Reference Range Comments TROPONIN I (BEAKER) (test msvn=536) 0.28 ng/mL 0.00-0.03 Troponin I (TnI) levels [...] NATRIURETIC PEPTIDE (BEAKER) (test 633 pg/mL 0-100 zmif=364) RAD, CHEST, 1 VIEW, NON [id number] 21:20:00Reason for exam:->unstable anginaShould this be performed [...] Verified Date/Time: 07/31/2018 21:20 :52 Reading Location: [address] Consult Reading Room BASIC METABOLIC [id number] 21:18:00 Test Item Value Reference Range Comments SODIUM (BEAKER) (test 137 meq/L 136-145 rwta=506) POTASSIUM (BEAKER) (test 4.6 meq/L 3.5-5.1 bqma=945) CHLORIDE (BEAKER) (test 104 meq/L 98-107 pepf=608) CO2 (BEAKER) (test 25 meq/L 22-29 sljw=405) BLOOD UREA NITROGEN 47 mg/dL 7-21 (BEAKER) (test teki=336) CREATININE (BEAKER) (test 2.18 mg/dL 0.57-1.25 zwxr=648) GLUCOSE RANDOM (BEAKER) 223 mg/dL 70-105 (test biii=386) CALCIUM (BEAKER) (test 9.1 mg/dL 8.4-10.2 szai=632) EGFR (BEAKER) (test 22 mL/min/1.73 sq m ESTIMATED GFR IS NOT xpgn=9063) ACCURATE CREATININE CLEARANCE IN PREDICTING GLOMERULAR FILTRATION RATE. ESTIMATED GFR IS NOT APPLICABLE FOR DIALYSIS PATIENTS. HEPATIC FUNCTION [id number] 21:15:00 Test Item Value Reference Range Comments TOTAL PROTEIN (BEAKER) (test sqpk=714) 6.8 gm/dL 6.0-8.3 ALBUMIN (BEAKER) (test cqxb=1995) 3.8 g/dL 3.5-5.0 BILIRUBIN TOTAL (BEAKER) (test rcyb=351) 0.6 mg/dL 0.2-1.2 BILIRUBIN DIRECT (BEAKER) (test lcer=928) 0.3 mg/dL 0.1-0.5 ALKALINE PHOSPHATASE (BEAKER) (test oibc=351) 67 U/L 40-150 AST (SGOT) (BEAKER) (test qeyx=928) 14 U/L 5-34 ALT (SGPT) (BEAKER) (test zyep=988) 10 U/L 6-55 [id number] 20:57:00 Test Item Value Reference Range Comments PARTIAL THROMBOPLASTIN TIME (BEAKER) (test 27.7 seconds 22.5-36.0 vjna=581) PROTHROMBIN TIME/[id number] 20:56:00 Test Item Value Reference Range Comments PROTIME (BEAKER) (test rnpf=089) 13.1 seconds 11.9-14.2 INR (BEAKER) (test inrh=396) 1.0 <=5.9 Effective 07/18/2018: PT Reference Range ChangeNew: 11.9-14.2 Previous: 11.7- 14.7RECOMMENDED COUMADIN/WARFARIN INR THERAPY RANGESSTANDARD DOSE: 2.0-3.0 Includes: PROPHYLAXIS for venous thrombosis, systemic embolization; TREATMENT for venous thrombosis and/or pulmonary embolus.HIGH RISK: Target INR is2.5-3.5 for patients wiht mechanical heart valves.CBC W/PLT COUNT & AUTO [id number] 20:50:00 Test Item Value Reference Range Comments WHITE BLOOD CELL COUNT (BEAKER) (test srek=946) 8.4 K/ L 3.5-10.5 RED BLOOD CELL COUNT (BEAKER) (test eqtc=945) 4.23 M/ L 3.93-5.22 HEMOGLOBIN (BEAKER) (test emjh=264) 13.0 GM/DL 11.2-15.7 HEMATOCRIT (BEAKER) (test eksf=117) 41.2 % 34.1-44.9 MEAN CORPUSCULAR VOLUME (BEAKER) (test neoq=991) 97.4 fL 79.4-94.8 MEAN CORPUSCULAR HEMOGLOBIN (BEAKER) (test 30.7 pg 25.6-32.2 fndx=549) MEAN CORPUSCULAR HEMOGLOBIN CONC (BEAKER) (test 31.6 GM/DL 32.2-35.5 bbpt=367) RED CELL DISTRIBUTION WIDTH (BEAKER) (test 12.8 % 11.7-14.4 iszh=023) PLATELET COUNT (BEAKER) (test fflz=291) 230 K/CU MM 150-450 MEAN PLATELET VOLUME (BEAKER) (test rrwo=109) 9.9 fL 9.4-12.3 NUCLEATED RED BLOOD CELLS (BEAKER) (test 0 /100 WBC 0-0 cpuk=073) NEUTROPHILS RELATIVE PERCENT (BEAKER) (test 87 % phgo=507) LYMPHOCYTES RELATIVE PERCENT (BEAKER) (test 12 % hrba=901) MONOCYTES RELATIVE PERCENT (BEAKER) (test 1 % byoy=322) EOSINOPHILS RELATIVE PERCENT (BEAKER) (test 0 % exnw=394) BASOPHILS RELATIVE PERCENT (BEAKER) (test 0 % nqpo=107) NEUTROPHILS ABSOLUTE COUNT (BEAKER) (test 7.32 K/ L 1.56-6.13 zkyr=989) LYMPHOCYTES ABSOLUTE COUNT (BEAKER) (test 0.98 K/ L 1.18-3.74 mtde=254) MONOCYTES ABSOLUTE COUNT (BEAKER) (test 0.08 K/ L 0.24-0.36 jqxn=107) EOSINOPHILS ABSOLUTE COUNT (BEAKER) (test 0.00 K/ L 0.04-0.36 fbci=138) BASOPHILS ABSOLUTE COUNT (BEAKER) (test 0.01 K/ L 0.01-0.08 clbq=019) IMMATURE GRANULOCYTES-RELATIVE PERCENT (BEAKER) 0 % 0-1 (test kdoz=6191) [id number] 19:45:00 Test Item Value Reference Range Comments TROPONIN-I (test 0.18 ng/mL 0.00-0.05 RESULTS CALLED TO SOLITARIO SCHUMACHER code=TROPI) [place] [address]/28/18.Oly Malloy L VALUE READ BACK BY NURSE AND VERIFIED BY TECH? Y<0.05 Normal0.06 - 0.39 Consistent with circulating Troponin with possible Myocardial injury.>0.40 Consistent with Myocardial injury extensive enough to conform with AMI as defined by WHO. COMPREHENSIVE METABOLIC [id number] 16:08:00 Test Item Value Reference Range Comments [...] 45-117 (test code=ALKP) - XR CHEST 1 [id number] 15:43:00 FAX: Rhett Jo Camps: ER St: REG Name: [facility]- Emergency Services : 1940 Age/S: 78/F [address] Unit #: [id number] Loc: [place], [place] [address] Phys: Rhett Sams MD Acct: [id number] Dis Date: Status: REG ER PHONE #: [phone] Exam Date: 07/28/2018 1527 FAX #: [phone] Reason: CP EXAMS: CPT CODE: [id number] XR CHEST 1 V 16020 Examination: Chest 1 view Location code: S17 Comparison: None Discussion: Clinical history is remarkable for chest tightness. Cardiac silhouette is slightly enlarged, atherosclerotic change present. There are coarsened interstitial changes present bilaterally, mild bilateral parenchymal basilar scarring noted. Impression: 1. Coarsened interstitial changes with likely bilateral basilar parenchymal scarring. Electronically Signed by TONIA BUNN M.D. on 09/2018 at 1226 Reported and signed by: YUAN BUNN M.D. CC: Rhett Sams MDTechnologist: HESHAM FONG RT,(R) ARRT Transcribed Date/Time/By: 07/28/2018 (6740) : [id number] Orig Print D/T: S: 07/28/2018 (5316) Automated exposure control, iterative reconstruction technique, and/ oradjustment of mA and/or kV according to patient's size was utilizedfor optimum radiation dose reduction. PAGE 1 Signed ReportTROPONIN I [id number] 15:37:00 Test Item Value Reference Range Comments TROPONIN I RAPID (test 0.03 NG/ML 0.00-0.08 0.00 - 0.08 Normal0.09 - code=TROPIRAP) 0.40 Indeterminate for AMI 0.41 and above Compatible with AMI CHEMISTRY 8 [id number] 15:36:00 Test Item Value Reference Range Comments [...] (test code=CREATBED) 2.6 MG/DL 0.6-1.0 CBC W/AUTO [id number] 15:34:00 Test Item Value Reference Range Comments [...]
--- OUTSIDE RECORDS SUMMARY | 2019-03-19 11:22 | XMS REPORT ---
[...] Condition Code Onset Dates Condition Status Assessment Left sided numbness R20.0 Active Assessment History of coronary artery stent Z95.5 Active placement Assessment 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 Active classified elsewhere Assessment Proteinuria, unspecified R80.9 Active Assessment Hypertensive heart disease without I11.9 Active heart failure Assessment Chronic kidney disease, stage 4 N18.4 Active (severe) Assessment Type 2 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 Assessment Chronic systolic congestive heart I50.22 Active failure Assessment Coronary artery disease involving I25.110 Active [place] coronary artery of [place] heart with unstable angina pectoris Problem Type 2 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 Assessment Chest pain, unspecified type R07.9 Active Problem 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 Active classified elsewhere Problem Chronic kidney disease, stage 4 N18.4 Active (severe) Problem 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 knee Problem Hypertensive heart disease without I11.9 Active heart failure Problem 3-vessel coronary artery disease I25.10 Active Problem Coronary artery disease involving I25.110 Active [place] coronary artery of [place] heart with unstable angina pectoris Problem Proteinuria, unspecified R80.9 Active Problem Cervical stenosis (uterine cervix) N88.2 Active Assessment correction current 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 Z79.4 Active Problem Stented coronary artery Z95.5 Active Problem Mixed hyperlipidemia E78.2 Active Assessment 3-vessel coronary artery disease I25.10 Active Problem Pain, joint, knee, right M25.561 Active Problem Primary osteoarthritis of left knee M17.12 Active Problem Adult BMI 36.0-36.9 kg/sq m Z68.36 Active Problem Acute pain of left knee M25.562 Active Assessment At risk for falling Z91.81 Active Problem At risk for falling Z91.81 Active Assessment Mixed hyperlipidemia E78.2 Active Problem Atherosclerosis of [place] coronary I25.10 Active artery Assessment Cervical stenosis of spine M48.02 Active Problem Chronic kidney disease (CKD), stage N18.4 Active IV (severe) Assessment Other osteoporosis M81.8 Active Problem Other osteoporosis M81.8 Active Assessment H/O stroke without residual Z86.73 Active deficits 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 Assessment Adult BMI 36.0-36.9 kg/sq m Z68.36 Active Problem Cervical stenosis of spine M48.02 Active Problem H/O stroke without residual Z86.73 Active deficits Problem Primary hypersomnia F51.11 Active Medications Medication Code Code Instructions Start End Status Dosage System Date Date Calcitriol [facility] 83062170154 0.5 MCG Orally Active 1 capsule Once a day Nitrostat [facility] 94349172203 0.4 MG Active as Sublingual 3 directed doses within 15 minutes PRN CHEST PAIN Bumetanide [facility] 26128750935 1 MG Oral Active TAKE 1 TABLET BY MOUTH TWICE A DAY Clopidogrel [facility] 90756248003 75 MG Orally Active 1 tablet Bisulfate Once a day Metoprolol [facility] 87464460177 50 MG Orally Active 1 tablet Tartrate Twice a day with food Ferrous Sulfate [facility] 38746507283 325 (65 Fe) MG Active TAKE 1 Oral TABLET BY MOUTH TWICE A DAY Thiamine HCl [facility] 34522646430 100 MG Orally Active 1 tablet Once a day Lipitor [facility] 64731394772 80 MG Orally Active 1 tablet Once a day Folic Acid [facility] 42275971443 1 MG Orally Active 1 tablet Once a day Lactobacillus NDC 0 Active not defined Plavix [facility] 91256911707 75 MG Orally Active 1 tablet Once a day Vitamin D-3 [facility] 87637862417 5000 UNIT Active as Orally directed Cyanocobalamin [facility] [address]-80 1000 MCG Active 1 tablet Orally Once a day BD Pen Needle [facility] 22074038079 31G X 5 MM Active USE Mini U/F DIRECTED Tradjenta [facility] 77977078218 5 MG Orally Active 1 tablet Once a day Tresiba FlexTouch [facility] 32406858707 200 UNIT/ML Active 10 units Subcutaneous daily Senna S [facility] 33038091393 8.6-50 MG Active 1 tablet Orally Once a in the day evening as needed Humalog [facility] 37477194502 100 UNIT/ML Active as Subcutaneous directed Aspir-Low [facility] 52666378094 81 MG Orally Active 1 tablet Once a day Coreg [facility] 72405756616 6.25 MG Orally Inactive 1 tab BID Cranberry Extract [facility] [address] Active not defined Results No Known Results Summary Purpose eClinicalWorks Submission
--- OUTSIDE RECORDS SUMMARY | 2019-03-19 11:22 | XMS REPORT ---
:1940 Author Organization eClinicalWorks Care Team Providers Name Role Phone Orlando John Provider Role Unavailable Allergies No Known Allergies Problems Problem Type Condition Code Onset Dates Condition Status Assessment Stented coronary artery Z95.5 Active Problem Type 2 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 Assessment Coronary artery disease involving I25.110 Active [place] coronary artery of [place] heart with unstable angina pectoris Problem 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 Active classified elsewhere Problem Chronic kidney disease, stage 4 N18.4 Active (severe) Problem 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 knee Problem Hypertensive heart disease without I11.9 Active heart failure Problem 3-vessel coronary artery disease I25.10 Active Problem Coronary artery disease involving I25.110 Active [place] coronary artery of [place] heart with unstable angina pectoris Problem Proteinuria, [...] for falling Z91.81 Active Problem Atherosclerosis of [place] coronary I25.10 Active artery Problem Chronic kidney disease (CKD), stage N18.4 Active IV (severe) Problem Other osteoporosis M81.8 Active Problem care home current 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 Z79.4 Active Problem Cervical stenosis of spine M48.02 Active Problem H/O stroke without residual Z86.73 Active deficits Problem Primary hypersomnia F51.11 Active Medications No Known Medications Results No Known Results Summary Purpose eClinicalWorks Submission
--- OUTSIDE RECORDS SUMMARY | 2019-03-19 11:22 | XMS REPORT ---
[...] Problem Coronary artery disease involving I25.110 Active [place] coronary artery of [place] heart with unstable angina pectoris Problem Cervical [...] for falling Z91.81 Active Problem Atherosclerosis of [place] coronary I25.10 Active artery Problem Chronic kidney disease (CKD), stage N18.4 Active IV (severe) Problem Other osteoporosis M81.8 Active Problem snf current 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 Z79.4 Active Problem Cervical stenosis of spine M48.02 Active Problem H/O stroke without residual Z86.73 Active deficits Problem Type 2 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 Problem Primary hypersomnia F51.11 Active Problem 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 Active classified elsewhere Medications No Known Medications Results No Known Results Summary Purpose [employer] Submission
--- OUTSIDE RECORDS SUMMARY | 2019-03-19 11:22 | XMS REPORT ---
[...] Problem Coronary artery disease involving I25.110 Active [place] coronary artery of [place] heart with unstable angina pectoris Problem Cervical [...] for falling Z91.81 Active Problem Atherosclerosis of [place] coronary I25.10 Active artery Problem Chronic kidney [...] Medications Results No Known Results Summary Purpose [employer] Submission
--- OUTSIDE RECORDS SUMMARY | 2019-03-19 11:22 | XMS REPORT ---
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 Assessment Coronary artery disease involving I25.110 Active [place] coronary artery of [place] heart with unstable angina pectoris Problem 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 Active classified elsewhere Problem Chronic kidney disease, stage 4 N18.4 Active (severe) Problem 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 knee Problem Hypertensive heart disease without I11.9 Active heart failure Problem 3-vessel coronary artery disease I25.10 Active Problem Coronary artery disease involving I25.110 Active [place] coronary artery of [place] heart with unstable angina pectoris Problem Proteinuria, unspecified R80.9 Active Problem Cervical stenosis (uterine cervix) N88.2 Active Assessment H/O stroke without residual Z86.73 Active deficits Problem Stented coronary artery Z95.5 Active Problem Mixed hyperlipidemia E78.2 Active Assessment [facility] current 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 Z79.4 Active Problem [...] stent Z95.5 Active placement Problem Atherosclerosis of [place] coronary I25.10 Active artery Assessment Other osteoporosis M81.8 Active Problem Chronic kidney disease (CKD), stage N18.4 Active IV (severe) Assessment At risk for falling Z91.81 Active Problem Other osteoporosis M81.8 Active Assessment Adult BMI 36.0-36.9 kg/sq m Z68.36 Active 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 Assessment Cervical stenosis of spine M48.02 Active Problem Cervical stenosis of spine M48.02 Active Problem H/O stroke without residual Z86.73 Active deficits Problem Primary hypersomnia F51.11 Active Medications Medication Code Code Instructions Start End Status Dosage System Date Date Cyanocobalamin [facility] [address]-59 1000 MCG Active 1 tablet Orally Once a day BD Pen Needle [facility] 44362313639 31G X 5 MM Active USE Mini U/F DIRECTED Folic Acid [facility] 09615788369 1 MG Orally Active 1 tablet Once a day Carvedilol [facility] 02493023036 6.25 MG Oral Active TAKE 1 TABLET BY MOUTH TWICE A DAY Nitrostat [facility] 04534742280 0.4 MG Active as Sublingual 3 directed doses within 15 minutes PRN CHEST PAIN Lactobacillus NDC 0 Active not defined Calcitriol [facility] 33920654223 0.5 MCG Orally Active 1 capsule Once a day Thiamine HCl [facility] 26360073168 100 MG Orally Active 1 tablet Once a day Humalog [facility] 28511771285 100 UNIT/ML Active as Subcutaneous directed Lipitor [facility] 15149861656 80 MG Orally Active 1 tablet Once a day Ferrous Sulfate [facility] 19424242245 325 (65 Fe) MG Active TAKE 1 Oral TABLET BY MOUTH TWICE A DAY Cranberry Extract [facility] [address] Active not defined Bumetanide [facility] 04179352269 1 MG Oral Active TAKE 1 TABLET BY MOUTH TWICE A DAY Clopidogrel [facility] 58995745642 75 MG Orally Active 1 tablet Bisulfate Once a day Tradjenta [facility] 18575247242 5 MG Orally Active 1 tablet Once a day Plavix [facility] 12005860505 75 MG Orally Active 1 tablet Once a day Vitamin D-3 [facility] 10254866584 5000 UNIT Active as Orally directed Tresiba FlexTouch [facility] 52988532871 200 UNIT/ML Active 10 units Subcutaneous daily Senna S [facility] 66801134569 8.6-50 MG Active 1 tablet Orally Once a in the day evening as needed Aspir-Low [facility] 48754965902 81 MG Orally Active 1 tablet Once a day Coreg [facility] 36581132841 6.25 MG Orally Inactive 1 tab BID Metoprolol [facility] 06712767628 50 MG Orally Active 1 tablet Tartrate Twice a day with food Results No Known Results Summary Purpose eClinicalWorks Submission
[2019-03-19 12:54] LABS: Protime INR 0.99
[2019-03-19] MEDS ORDERED: NA CHLORIDE 0.9% 1,000 ML ONE (12:54)
[2019-03-19 12:55] LABS: Absolute Lymphocytes (CBC) 1.4 K/uL (0.7-4.9); Basophils % 0.8 % (0-1.3); Hematocrit 39.3 % (36.0-45.0); Lymphocytes % 22.3 % (15.3-44.8); MPV 8.4 fL (7.6-11.3); RBC Red Blood Cell Count 4.23 M/uL (3.86-4.86)
--- NOTE | 2019-03-19 12:58 | RAD REPORT ---
EXAM DESCRIPTION: RAD - Chest Single View - 03/19/2019 12:50 pm CLINICAL HISTORY: CHEST PAIN Chest pain. COMPARISON: Chest Single View dated 01/25/2019; Chest Single View dated 12/20/2018; Chest Single View dated 11/20/2018; Chest Single View dated 11/10/2018 FINDINGS: Portable technique limits examination quality. The lungs are mildly emphysematous but grossly clear. The heart is mildly enlarged in size. No displa manuel fractures. IMPRESSION: No acute intrathoracic process suspected.
[2019-03-19 13:11] LABS: Albumin 3.7 g/dL (3.4-5.0); Bilirubin Direct 0.1 mg/dL (0-0.2); Bilirubin Total 0.4 mg/dL (0.2-1.0); Magnesium 2.3 mg/dL (1.8-2.4); Protein, Total 7.1 g/dL (6.4-8.2)
[2019-03-19 13:13] LABS: Troponin (Emerg Dept Use Only) 0.84 ng/mL (0.0-0.045)
--- NOTE | 2019-03-19 13:42 | RAD REPORT ---
EXAM DESCRIPTION: CT - Chest Abd Pelvis Wo Con - 03/19/2019 1:18 pm CLINICAL HISTORY: Chest and abdomen pain. Chest pain;Abdominal distention COMPARISON: Thorax Wo Con dated 09/20/2018; Chest Single View dated 03/19/2019 TECHNIQUE: A limited noncontrast study was performed. All CT scans are performed using dose optimization technique as appropriate and may include automated exposure control or mA/KV adjustment according to patient size. FINDINGS: Mild linear areas of scarring and atelectasis present in the lung [place]. No evidence of l jason infiltrate or mass.No pleural or pericardial effusion.No intrathoracic adenopathy. The liver, spleen, pancreas, adrenal glands and kidneys are within normal limits for limited noncontr ast assessment. Cholecystectomy clips. Heavy atherosclerosis noted. No bowel obstruction, free air, free fluid or abscess. Normal appendix. Moderate retention of stool t hroughout the colon seen. No pathologic lymphadenopathy in the abdomen or pelvis. Moderate lumbosacral degenerative changes. IMPRESSION: No acute abnormality is detected on limited noncontrast study.
[2019-03-19 14:25] LABS: Urine Blood TRACE (NEG); Urine Glucose 1+ (NEG); Urine Protein TRACE (NEG); Urine pH 5.5 (5.0-7.0)
--- NOTE | 2019-03-19 14:57 | ER ---
Nurse's Notes [facility] Name: Suzan Gonzalez Age: 78 yrs Sex: Female : 1940 Arrival Date: 03/19/2019 Time: 10:56 Bed 25 Private MD: John Perry Diagnosis: Chest pain, unspecified;Angina pectoris;Type 1 diabetes mellitus;Unspecified kidney failure;Abdominal tenderness Presentation: 03/19 11:24 Presenting complaint: Patient states: c/o pain to right side under ribs for months but iw worse over past two months and sometimes the pain starts to radiate up to left side of chest and she has a lot of belching , has to take nitro to relieve her chest pain, Dr. Perry wanted her to have an US but weren't able to do it tomorrow so he sent her to ER, pt does not have a gallbladder. Transition of care: patient was not received from another setting of care. Onset of symptoms was 2018. Risk Assessment: Do you want to hurt yourself or someone else? Patient reports no desire to harm self or others. Initial Sepsis Screen: Does the patient meet any 2 criteria? No. Patient's initial sepsis screen is negative. Does the patient have a suspected source of infection? No. Patient's initial sepsis screen is negative. Care prior to arrival: None. 11:24 Method Of Arrival: Wheelchair iw 11:24 Acuity: SERGIO 3 iw Triage Assessment: 23:39 General: Behavior is. vc Historical: - Allergies: 11:28 "every pain narcotic"; iw 11:28 Bactrim; iw 11:28 Benadryl; iw 11:28 Iodine; iw 11:28 Levaquin; iw 11:28 Levofloxacin; iw 11:28 Morphine; iw 11:28 Sulfa (Sulfonamide Antibiotics); iw - Home Meds: 11:28 aspirin 81 mg Oral chew 1 tab once daily [Active]; bumetanide 1 mg Oral tab 2 times per iw day [Active]; calcitriol 0.5 mcg Oral cap once daily [Active]; carvedilol 6.25 mg Oral tab 2 times per day [Active]; cranberry with Vitamin C [Active]; ferrous sulfate 325 mg (65 mg iron) Oral TbEC twice a day [Active]; ferrous sulfate 325 mg (65 mg iron) Oral tab twice a day [Active]; folic acid 1 mg Oral tab once daily [Active]; Plavix 75 mg Oral tab 1 tab once daily [Active]; ranolazine Oral 2 times per day [Active]; Tradjenta 5 mg Oral tab 1 tab once daily [Active]; Vitamin D3 4,000 unit Oral cap daily [Active]; - PMHx: 11:28 angio; CHF; Diabetes - IDDM; Hypertension; kidney failure; Myocardial infarction; iw Osteoporosis; Renal Disease; POOR CIRCULATION; TIA; - PSHx: 11:28 Heart stents; iw - Immunization history:: Adult Immunizations up to date. - Coronavirus screen:: The patient has NOT traveled to [place], [place], or [place] in the past 14 days. Proceed with normal triage process as indicated. - Social history:: Smoking status: Patient denies any tobacco usage or history of. - Ebola Screening: : Patient negative for fever greater than or equal to 101.5 degrees Fahrenheit, and additional compatible Ebola Virus Disease symptoms Patient denies exposure to infectious person Patient denies travel to an Ebola-affected area in the 21 days before illness onset No symptoms or risks identified at this time. Screenin:16 Abuse screen: Denies threats or abuse. Nutritional screening: No deficits noted. vc Tuberculosis screening: No symptoms or risk factors identified. Fall Risk None identified. Assessment: 12:30 General: Appears in no apparent distress. uncomfortable, Behavior is calm, cooperative. vc Pain: Denies pain. Neuro: Level of Consciousness is awake, alert, obeys commands, Oriented to person, place, time. Cardiovascular: Patient's skin is warm and dry. Respiratory: Airway is patent Respiratory effort is even, unlabored. GI: Abdomen is round non-distended. : Urine is clear. EENT: No signs and/or symptoms were reported regarding the EENT system. Derm: Skin is intact. Musculoskeletal: Range of motion: intact in all extremities. 13:30 Reassessment: Patient and/or family updated on plan of care and expected duration. Pain vc level reassessed. Patient is alert, oriented x 3, equal unlabored respirations, skin warm/dry/pink. 14:30 Reassessment: Patient and/or family updated on plan of care and expected duration. Pain vc level reassessed. Patient is alert, oriented x 3, equal unlabored respirations, skin warm/dry/pink. Patient denies pain at this time. 15:17 Reassessment: Patient and/or family updated on plan of care and expected duration. Pain vc level reassessed. Provider at bedside. Patient denies pain at this time. Patient states symptoms have improved. 16:00 Reassessment: Patient and/or family updated on plan of care and expected duration. Pain vc level reassessed. Patients daughter at bedside. 17:00 Reassessment: Patient and/or family updated on plan of care and expected duration. Pain vc level reassessed. Patient denies pain at this time. Patient states symptoms have improved. 18:00 Reassessment: Patient sitting up eating, daughter at bedside. vc 19:00 Reassessment: Patient and/or family updated on plan of care and expected duration. Pain vc level reassessed. Patient is alert, oriented x 3, equal unlabored respirations, skin warm/dry/pink. Patient states feeling better. 20:00 Reassessment: No changes from previously documented assessment. vc 21:00 Reassessment: Patients daughter at bedside. No complaints at this time. Patient laying vc with eyes closed, resting comfortably. Vital Signs: 11:28 BP 143 / 60; Pulse 65; Resp 16; Temp 97.8; Pulse Ox 97% on R/A; Weight 71.67 kg; Height iw 5 ft. 1 in. (154.94 cm); Pain 10/10; 14:00 BP 155 / 53; Pulse 65; Resp 15; Pulse Ox 100% on R/A; vc 15:00 BP 157 / 57; Pulse 67; Resp 15; Pulse Ox 98% on R/A; vc 16:00 BP 143 / 52; Pulse 64; Resp 15; Pulse Ox 98% on R/A; vc 17:00 BP 148 / 62; Pulse 72; Resp 15; Pulse Ox 98% on R/A; vc 19:00 BP 150 / 46; Pulse 72; Resp 16; Pulse Ox 98% on R/A; vc 20:00 BP 146 / 62; Pulse 70; Resp 15; Pulse Ox 97% on R/A; vc 21:00 BP 155 / 57; Pulse 68; Resp 18; Pulse Ox 98% on R/A; vc 11:28 Body Mass Index 29.85 (71.67 kg, 154.94 cm) iw ED Course: 10:56 Patient arrived in ED. mr 10:56 John Perry DO is Private Physician. mr 11:27 Triage completed. iw 11:28 Arm band placed on. iw 12:21 Norberto Yadav MD is Attending Physician. yosvany 12:23 Lori Fried RN is Primary Nurse. vc 12:44 Initial lab(s) drawn, by ks, sent to lab. Inserted saline lock: 22 gauge in right 5 antecubital area, using aseptic technique. Blood collected. 12:45 Patient has correct armband on for positive identification. Bed in low position. Call 5 light in reach. Adult w/ patient. Warm blanket given. Pulse ox on. NIBP on. 12:50 XRAY Chest (1 view) In Process Unspecified. EDMS 13:17 EKG done, by blood bank technician. reviewed by Norberto Yadav MD. at1 13:18 CT Chest Abdomen Pelvis W/O Contrast In Process Unspecified. EDMS 13:33 Urine collected: clean catch specimen, clear. tm3 14:55 Mino Hdez DO is Hospitalizing Provider. yosvany 21:29 No provider procedures requiring assistance completed. Patient transferred, IV remains vc in place. Administered Medications: Discontinued: NS 0.9% 1000 ml IV at 125 ml/hr continuous 12:58 Drug: NS 0.9% 1000 ml Route: IV; Rate: 125 ml/hr; Site: right antecubital; vc 15:20 Drug: Rocephin 1 grams Route: IV; Rate: per protocol; Site: right antecubital; vc 16:20 Follow up: IV Status: Completed infusion vc 17:00 Drug: Heparin (PR-Bolus with thrombolytic) - HEParin 60 units/kg {Co-Signature: ls4 vc (Kristie King RN).} Route: IVP; Site: right antecubital; 17:05 Follow up: Response: No adverse reaction vc 17:00 Drug: Heparin (PR Drip) 12 units/kg/hr - (HEParin 44787 units, D5W 500 ml) vc {Co-Signature: ls4 (Kristie King RN).} Route: IV; Rate: calculated rate; Site: right antecubital; 22:00 Follow up: IV Status: Infusion continued upon transfer vc 20:01 Not Given (Patient Refused): ProTONIX 40 mg IVP once vc Outcome: 14:56 Decision to Hospitalize by Provider. [facility] 15:37 ER care complete, transfer ordered by . yosvany 21:28 Transferred by ground EMS to [facility]. vc 21:28 Condition: good 21:28 Discharge instructions given to patient, family. 21:29 Patient left the ED. vc Signatures: Dispatcher [employer] EDMS Raciel Bonilla tm3 Norberto Yadav MD MD cha Rivera, Eileen mr Nissa Hobson RN RN Marilou Weaver, ball holder EKG Tat1 Susie Barton 5 Lori Fried RN RN Kristie King RN ls4 Corrections: (The following items were deleted from the chart) 23:37 23:36 General: Behavior is calm, vc 23:37 23:36 Pain: Complains of pain in right upper quadrant and right low back and right mid vc back vc 03/20 00:03/19 15:17 Reassessment: Provider at bedside. vc vc 03/20 00:03/19 19:30 General: Appears vc vc
--- NOTE | 2019-03-19 14:57 | EDPHYS ---
Physician Documentation [facility] Name: Suzan Gonzalez Age: 78 yrs Sex: Female : 1940 Arrival Date: 03/19/2019 Time: 10:56 Bed 25 Private MD: [place] [facility] ED Physician Norberto Yadav HPI: 03/19 14:51 This 78 yrs old Female presents to ER via Wheelchair with complaints of Flank yosvany Pain. 14:51 The patient complains of pain in the right mid back and right low back. The pain does yosvany not radiate. Modifying factors: The symptoms are alleviated by nothing. the symptoms are aggravated by nothing. Associated signs and symptoms: Pertinent positives: nausea. Severity of pain: At its worst the pain was moderate in the emergency department the pain has improved moderately. The patient has experienced similar episodes in the past, multiple times. Historical: - Allergies: : "every pain narcotic"; iw 11:28 Bactrim; iw 11:28 Benadryl; iw 11:28 Iodine; iw 11:28 Levaquin; iw 11:28 Levofloxacin; iw 11:28 Morphine; iw 11:28 Sulfa (Sulfonamide Antibiotics); iw - Home Meds: :28 aspirin 81 mg Oral chew 1 tab once daily [Active]; bumetanide 1 mg Oral tab 2 times per iw day [Active]; calcitriol 0.5 mcg Oral cap once daily [Active]; carvedilol 6.25 mg Oral tab 2 times per day [Active]; cranberry with Vitamin C [Active]; ferrous sulfate 325 mg (65 mg iron) Oral TbEC twice a day [Active]; ferrous sulfate 325 mg (65 mg iron) Oral tab twice a day [Active]; folic acid 1 mg Oral tab once daily [Active]; Plavix 75 mg Oral tab 1 tab once daily [Active]; ranolazine Oral 2 times per day [Active]; Tradjenta 5 mg Oral tab 1 tab once daily [Active]; Vitamin D3 4,000 unit Oral cap daily [Active]; - PMHx: 11:28 angio; CHF; Diabetes - IDDM; Hypertension; kidney failure; Myocardial infarction; iw Osteoporosis; Renal Disease; POOR CIRCULATION; TIA; - PSHx: 11:28 Heart stents; iw - Immunization history:: Adult Immunizations up to date. - Coronavirus screen:: The patient has NOT traveled to [place], [place], or [place] in the past 14 days. Proceed with normal triage process as indicated. - Social history:: Smoking status: Patient denies any tobacco usage or history of. - Ebola Screening: : Patient negative for fever greater than or equal to 101.5 degrees Fahrenheit, and additional compatible Ebola Virus Disease symptoms Patient denies exposure to infectious person Patient denies travel to an Ebola-affected area in the 21 days before illness onset No symptoms or risks identified at this time. ROS: 14:52 Constitutional: Negative for fever, chills, and weight loss, Eyes: Negative for injury, yosvany pain, redness, and discharge, ENT: Negative for injury, pain, and discharge, Neck: Negative for injury, pain, and swelling, Respiratory: Negative for shortness of breath, cough, wheezing, and pleuritic chest pain, Back: Negative for injury and pain, : Negative for injury, bleeding, discharge, and swelling, MS/Extremity: Negative for injury and deformity, Skin: Negative for injury, rash, and discoloration, Neuro: Negative for headache, weakness, numbness, tingling, and seizure, Psych: Negative for depression, anxiety, suicide ideation, homicidal ideation, and hallucinations, Allergy/Immunology: Negative for hives, rash, and allergies, Endocrine: Negative for neck swelling, polydipsia, polyuria, polyphagia, and marked weight changes, Hematologic/Lymphatic: Negative for swollen nodes, abnormal bleeding, and unusual bruising. 14:52 Cardiovascular: Positive for chest pain. 14:52 Abdomen/GI: Positive for abdominal pain, of the right upper quadrant. Exam: 14:52 Constitutional: This is a well developed, well nourished patient who is awake, alert, yosvany and in no acute distress. Head/Face: Normocephalic, atraumatic. Eyes: Pupils equal round and reactive to light, extra-ocular motions intact. Lids and lashes normal. Conjunctiva and sclera are non-icteric and not injected. Cornea within normal limits. Periorbital areas with no swelling, redness, or edema. ENT: Nares patent. No nasal discharge, no septal abnormalities noted. Tympanic membranes are normal and external auditory canals are clear. Oropharynx with no redness, swelling, or masses, exudates, or evidence of obstruction, uvula midline. Mucous membranes moist. Neck: Trachea midline, no thyromegaly or masses palpated, and no cervical lymphadenopathy. Supple, full range of motion without nuchal rigidity, or vertebral point tenderness. No Meningismus. Chest/axilla: Normal chest wall appearance and motion. Nontender with no deformity. No lesions are appreciated. Cardiovascular: Regular rate and rhythm with a normal S1 and S2. No gallops, murmurs, or rubs. Normal PMI, no JVD. No pulse deficits. Respiratory: Lungs have equal breath sounds bilaterally, clear to auscultation and percussion. No rales, rhonchi or wheezes noted. No increased work of breathing, no retractions or nasal flaring. Back: No spinal tenderness. No costovertebral tenderness. Full range of motion. Skin: Warm, dry with normal turgor. Normal color with no rashes, no lesions, and no evidence of cellulitis. MS/ Extremity: Pulses equal, no cyanosis. Neurovascular intact. Full, normal range of motion. Neuro: Awake and alert, GCS 15, oriented to person, place, time, and situation. Cranial nerves II-XII grossly intact. Motor strength 5/5 in all extremities. Sensory grossly intact. Cerebellar exam normal. Normal gait. Psych: Awake, alert, with orientation to person, place and time. Behavior, mood, and affect are within normal limits. 14:52 Abdomen/GI: Inspection: abdomen appears normal, Bowel sounds: normal, Palpation: mild abdominal tenderness, in the right upper quadrant, Liver: no appreciated palpable abnormalities, Hernia: not appreciated. Vital Signs: 11:28 BP 143 / 60; Pulse 65; Resp 16; Temp 97.8; Pulse Ox 97% on R/A; Weight 71.67 kg; Height iw 5 ft. 1 in. (154.94 cm); Pain 10/10; 14:00 BP 155 / 53; Pulse 65; Resp 15; Pulse Ox 100% on R/A; vc 15:00 BP 157 / 57; Pulse 67; Resp 15; Pulse Ox 98% on R/A; vc 16:00 BP 143 / 52; Pulse 64; Resp 15; Pulse Ox 98% on R/A; vc 17:00 BP 148 / 62; Pulse 72; Resp 15; Pulse Ox 98% on R/A; vc 19:00 BP 150 / 46; Pulse 72; Resp 16; Pulse Ox 98% on R/A; vc 20:00 BP 146 / 62; Pulse 70; Resp 15; Pulse Ox 97% on R/A; vc 21:00 BP 155 / 57; Pulse 68; Resp 18; Pulse Ox 98% on R/A; vc 11:28 Body Mass Index 29.85 (71.67 kg, 154.94 cm) iw MDM: 12:21 Patient medically screened. [facility] 14:54 Data reviewed: vital signs, nurses notes, lab test result(s), EKG, radiologic studies, [facility] CT scan, plain films. 03/19 12:24 Order name: Basic Metabolic Panel [facility] 03/19 12:24 Order name: CBC with Diff; Complete Time: 14: [facility] 03/19 12:24 Order name: LFT's; Complete Time: 14: [facility] 03/19 12:24 Order name: Magnesium; Complete Time: 14: [facility] 03/19 12:24 Order name: NT PRO-BNP; Complete Time: 14: [facility] 03/19 12:24 Order name: PT-INR; Complete Time: 14: [facility] 03/19 12:24 Order name: Troponin (emerg Dept Use Only); Complete Time: 14:01 [facility] 03/19 12:24 Order name: XRAY Chest (1 view); Complete Time: 14:01 [facility] 03/19 12:24 Order name: Lipase; Complete Time: 14:01 [facility] 03/19 12:24 Order name: Urine Culture [facility] 03/19 12:25 Order name: Basic Metabolic Panel; Complete Time: 14:01 EDMS 03/19 14:16 Order name: Urine Dipstick--Ancillary (enter results); Complete Time: 14:48 bd 03/19 17:41 Order name: Ptt, Activated [facility] 03/19 12:24 Order name: EKG; Complete Time: 12:25 [facility] 03/19 12:24 Order name: Cardiac monitoring; Complete Time: 12:46 [facility] 03/19 12:24 Order name: EKG - Nurse/Tech; Complete Time: 12:59 [facility] 03/19 12:24 Order name: IV Saline Lock; Complete Time: 12:46 [facility] 03/19 12:24 Order name: Labs collected and sent; Complete Time: 12:47 [facility] 03/19 12:24 Order name: O2 Per Protocol; Complete Time: 12:47 [facility] 03/19 12:24 Order name: O2 Sat Monitoring; Complete Time: 12:47 [facility] 03/19 13:04 Order name: CT Chest Abdomen Pelvis W/O Contrast; Complete Time: 14:01 [facility] 03/19 12:24 Order name: Urine Dipstick-Ancillary (obtain specimen); Complete Time: 14:01 [facility] Administered Medications: Discontinued: NS 0.9% 1000 ml IV at 125 ml/hr continuous 12:58 Drug: NS 0.9% 1000 ml Route: IV; Rate: 125 ml/hr; Site: right antecubital; vc 15:20 Drug: Rocephin 1 grams Route: IV; Rate: per protocol; Site: right antecubital; vc 16:20 Follow up: IV Status: Completed infusion vc 17:00 Drug: Heparin (SD-Bolus with thrombolytic) - HEParin 60 units/kg {Co-Signature: ls4 vc (Kristie King RN).} Route: IVP; Site: right antecubital; 17:05 Follow up: Response: No adverse reaction vc 17:00 Drug: Heparin (SD Drip) 12 units/kg/hr - (HEParin 67620 units, D5W 500 ml) vc {Co-Signature: ls4 (Kristie King RN).} Route: IV; Rate: calculated rate; Site: right antecubital; 22:00 Follow up: IV Status: Infusion continued upon transfer vc 20:01 Not Given (Patient Refused): ProTONIX 40 mg IVP once vc Disposition: 03/19/19 15:[address] [facility]. Diagnosis are Chest pain, unspecified, Angina pectoris, Type 1 diabetes mellitus, Unspecified kidney failure, Abdominal tenderness. - Reason for transfer: Higher level of care. - Accepting physician is to [facility]. - Condition is Fair. - Problem is new. - Symptoms have improved. Signatures: Dispatcher [employer] EDMS Norberto Yadav MD MD cha Williams, Irene, RN RN Lori Barber RN RN vc Kristie King RN ls4 Corrections: (The following items were deleted from the chart) 13:08 12:25 Angio Aorta For Dissection+CT.RAD.BRZ ordered. EDMS EDMS 15:35 14:56 Hospitalization Ordered by Mino Hdez DO for Inpatient Admission. Preliminary yosvany diagnosis is Abdominal tenderness; Type 1 diabetes mellitus; Chest pain, unspecified; Unspecified kidney failure; Urinary tract infection, site not specified. Bed requested for Telemetry/MedSurg (Inpatient). Status is Inpatient Admission. Condition is Fair. Problem is new. Symptoms have improved. UTI on Admission? Yes. yosvany 17:42 17:42 PTT, ACTIVATED+COAG.LAB.BRZ ordered. EDWY EDMS 21:29 15:37 03/19/2019 15:[address] [facility]. vc Diagnosis is Chest pain, unspecified; Angina pectoris; Type 1 diabetes mellitus; Unspecified kidney failure; Abdominal tenderness. Reason for transfer: Higher level of care. [facility] Condition is Fair. Problem is new. Symptoms have improved. yosvany
[2019-03-19] MEDS ORDERED: CEFTRIAXONE/SWI 1gm 1 GM/10 ML SYR ONE (15:06)
--- NOTE | 2019-03-19 15:52 | EKG ---
Test Date: 2019-03-19 Test Time: 13:01:06 Optical Technician: BEN MEASUREMENT RESULTS: Intervals: Rate: 66 LA: 190 QRSD: 112 QT: 464 QTc: 486 [place]: P: 58 LA: 190 QRS: 33 T: 143 INTERPRETIVE STATEMENTS: Normal sinus rhythm Incomplete left bundle branch block Nonspecific T wave abnormality Prolonged QT Abnormal ECG Compared to ECG 01/25/2019 11:32:36 Left bundle-branch block now present Possible ischemia no longer present T-wave abnormality still present Electronically Signed On 03-19-19 15:51:23 CARBIDE GRINDER by Portillo Arteaga
[2019-03-19] MEDS ORDERED: HEPARIN/D5W 25,000 UNIT/500 ML BAG IV ONE (16:51)
[2019-03-19] MEDS ORDERED: NA CHLORIDE 0.9% 50 ML IV ONE (19:51)
[2019-03-19] MEDS ORDERED: PANTOPRAZOLE 40 MG INJ ONE (19:51)
[2019-03-19 21:43] VITALS: TEMP 97.8
[2019-03-19 21:46] VITALS: O2SAT 98
[2019-03-19 21:50] VITALS: BP 150/46
== END 2019-03-19 21:29 | disposition short-term general hospital (02) ==
LOC: ER 10:51
DX: I20.9 Angina pectoris, unspecified (principal); N19 Unspecified kidney failure; E10.9 Type 1 diabetes mellitus without complications; R10.819 Abdominal tenderness, unspecified site; I10 Essential (primary) hypertension; I25.2 Old myocardial infarction; I50.9 Heart failure, unspecified; Z95.818 Presence of other cardiac implants and grafts; Z79.82 Long term (current) use of aspirin; Z88.1 Allergy status to other antibiotic agents; Z88.2 Allergy status to sulfonamides; Z88.5 Allergy status to narcotic agent; Z88.8 Allergy status to other drugs, medicaments and biological substances
CPT/HCPCS: 93005; 87088; 85025; 87086; 80048; 36415; 83735; 85610; 80076; 85730; 81003; 84484; 83690; 83880; 71250; 74176; 71045; C9113; J1644; J0696; J7030; 96365; 96366; 96367; 96375; 99285

== ENCOUNTER 2019-05-26 21:32 | Observation (INO) | payer OTHER ==
--- OUTSIDE RECORDS SUMMARY | 2019-05-26 21:44 | XMS REPORT ---
:1940 Author Organization [facility] Address [address] [place] [address] [address] [place] [address] Care Team Providers Name Role Phone VERA MICHELLE HERNANDES Unavailable Unavailable SEGUNDO COOK Unavailable Unavailable DARION AUGUSTINE Unavailable [...] Results Atomic Results Result Comments POCT-GLUCOSE METER 2019-03-23 11:53:00 Test Item Value Reference Range Comments POC-GLUCOSE METER (BEAKER) 309 mg/dL 70-110 : TESTED AT [address] (test tkvz=5798) [place], [address]: Margin Analyst/Progress Man EU=[id number] for NOVA PERSAUD POCT-GLUCOSE [id number] 08:34:00 Test Item Value Reference Range Comments POC-GLUCOSE METER (BEAKER) 209 mg/dL 70-110 : TESTED AT [address] (test xvzv=6316) [facility], [address]: Margin Analyst/Progress Man QJ=[id number] for NOVA PERSAUD COMPREHENSIVE METABOLIC [id number] 07:27:00 Test Item Value Reference Range Comments TOTAL PROTEIN (BEAKER) 6.3 gm/dL 6.0-8.3 Specimen slightly (test ywlp=108) hemolyzed ALBUMIN (BEAKER) (test 3.4 g/dL 3.5-5.0 Specimen slightly wjbd=3435) hemolyzed ALKALINE PHOSPHATASE 52 U/L 40-150 (BEAKER) (test alzp=817) BILIRUBIN TOTAL (BEAKER) 0.4 mg/dL 0.2-1.2 Specimen slightly (test pprw=460) hemolyzed SODIUM (BEAKER) (test 140 meq/L 136-145 unwf=862) POTASSIUM (BEAKER) (test 4.1 meq/L 3.5-5.1 Specimen slightly adli=645) hemolyzed CHLORIDE (BEAKER) (test 102 meq/L 98-107 dydy=921) CO2 (BEAKER) (test 25 meq/L 22-29 kiyc=937) BLOOD UREA NITROGEN 49 mg/dL 7-21 (BEAKER) (test jlzm=809) CREATININE (BEAKER) (test 2.86 mg/dL 0.57-1.25 Specimen slightly zyeu=490) hemolyzed GLUCOSE RANDOM (BEAKER) 164 mg/dL 70-105 (test xcza=756) CALCIUM (BEAKER) (test 9.0 mg/dL 8.4-10.2 tmir=277) AST (SGOT) (BEAKER) (test 27 U/L 5-34 Specimen slightly hzdu=136) hemolyzed ALT (SGPT) (BEAKER) (test 14 U/L 6-55 Specimen slightly gziw=558) hemolyzed EGFR (BEAKER) (test 16 mL/min/1.73 sq m ESTIMATED GFR IS NOT ytzc=5233) ACCURATE CREATININE CLEARANCE IN PREDICTING GLOMERULAR FILTRATION RATE. ESTIMATED GFR IS NOT APPLICABLE FOR DIALYSIS PATIENTS. Margin Analyst ID - PIAYA LCBC W/PLT COUNT & AUTO [id number] 03:51:00 Test Item Value Reference Range Comments WHITE BLOOD CELL COUNT (BEAKER) (test fzhc=065) 7.3 K/ L 3.5-10.5 RED BLOOD CELL COUNT (BEAKER) (test pmxn=937) 3.79 M/ L 3.93-5.22 HEMOGLOBIN (BEAKER) (test kyqa=726) 11.7 GM/DL 11.2-15.7 HEMATOCRIT (BEAKER) (test sywi=896) 36.0 % 34.1-44.9 MEAN CORPUSCULAR VOLUME (BEAKER) (test levw=826) 95.0 fL 79.4-94.8 MEAN CORPUSCULAR HEMOGLOBIN (BEAKER) (test 30.9 pg 25.6-32.2 dwxq=815) MEAN CORPUSCULAR HEMOGLOBIN CONC (BEAKER) (test 32.5 GM/DL 32.2-35.5 hhsc=810) RED CELL DISTRIBUTION WIDTH (BEAKER) (test 13.0 % 11.7-14.4 obfe=587) PLATELET COUNT (BEAKER) (test whbo=125) 202 K/CU MM 150-450 MEAN PLATELET VOLUME (BEAKER) (test krkz=390) 10.3 fL 9.4-12.3 NUCLEATED RED BLOOD CELLS (BEAKER) (test 0 /100 WBC 0-0 dyra=299) NEUTROPHILS RELATIVE PERCENT (BEAKER) (test 65 % iysu=114) LYMPHOCYTES RELATIVE PERCENT (BEAKER) (test 23 % uawq=795) MONOCYTES RELATIVE PERCENT (BEAKER) (test 9 % oicp=464) EOSINOPHILS RELATIVE PERCENT (BEAKER) (test 2 % cgqn=610) BASOPHILS RELATIVE PERCENT (BEAKER) (test 1 % vvst=863) NEUTROPHILS ABSOLUTE COUNT (BEAKER) (test 4.71 K/ L 1.56-6.13 euvy=331) LYMPHOCYTES ABSOLUTE COUNT (BEAKER) (test 1.68 K/ L 1.18-3.74 ohia=088) MONOCYTES ABSOLUTE COUNT (BEAKER) (test 0.67 K/ L 0.24-0.36 njrc=168) EOSINOPHILS ABSOLUTE COUNT (BEAKER) (test 0.12 K/ L 0.04-0.36 cwrt=880) BASOPHILS ABSOLUTE COUNT (BEAKER) (test 0.05 K/ L 0.01-0.08 cpkp=332) IMMATURE GRANULOCYTES-RELATIVE PERCENT (BEAKER) 0 % 0-1 (test ilaq=2755) POCT-GLUCOSE [id number] 22:09:00 Test Item Value Reference Range Comments POC-GLUCOSE METER (BEAKER) 172 mg/dL 70-110 : TESTED AT [address] (test lxnf=2161) [facility], [address]: Margin Analyst/Progress Man BQ=[id number] for HAIR MULLER POCT-GLUCOSE [id number] 17:30:00 Test Item Value Reference Range Comments POC-GLUCOSE METER (BEAKER) 284 mg/dL 70-110 : TESTED AT [facility] [address] [facility] (test rwom=0337) [facility], [address]: Margin Analyst/Progress Man TK=[id number] for NOVA PERSAUD BASIC METABOLIC [id number] 16:26:00 Test Item Value Reference Range Comments SODIUM (BEAKER) (test 140 meq/L 136-145 tmwm=727) POTASSIUM (BEAKER) (test 4.4 meq/L 3.5-5.1 Specimen slightly awfq=369) hemolyzed CHLORIDE (BEAKER) (test 104 meq/L 98-107 swvp=874) CO2 (BEAKER) (test 27 meq/L 22-29 lvyk=512) BLOOD UREA NITROGEN 47 mg/dL 7-21 (BEAKER) (test yizh=120) CREATININE (BEAKER) (test 2.78 mg/dL 0.57-1.25 Specimen slightly hmdw=920) hemolyzed GLUCOSE RANDOM (BEAKER) 237 mg/dL 70-105 (test nnkm=763) CALCIUM (BEAKER) (test 9.1 mg/dL 8.4-10.2 votz=353) EGFR (BEAKER) (test 16 mL/min/1.73 sq m ESTIMATED GFR IS NOT fvvw=3039) ACCURATE CREATININE CLEARANCE IN PREDICTING GLOMERULAR FILTRATION RATE. ESTIMATED GFR IS NOT APPLICABLE FOR DIALYSIS PATIENTS. Margin Analyst ID - AAHAMIDPOCT-GLUCOSE [id number] 16:16:00 Test Item Value Reference Range Comments POC-GLUCOSE METER (BEAKER) 233 mg/dL 70-110 : TESTED AT [place] [id number] [facility] (test wdzt=3745) [facility], [address]: Margin Analyst/Progress Man [id number] for NOVA PERSAUD CBC (HEMOGRAM ONLY)2019-03-22 16:08:00 Test Item Value Reference Range Comments WHITE BLOOD CELL COUNT (BEAKER) (test szsd=030) 7.0 K/ L 3.5-10.5 RED BLOOD CELL COUNT (BEAKER) (test rtto=535) 3.90 M/ L 3.93-5.22 HEMOGLOBIN (BEAKER) (test npkz=160) 12.1 GM/DL 11.2-15.7 HEMATOCRIT (BEAKER) (test mtex=140) 36.9 % 34.1-44.9 MEAN CORPUSCULAR VOLUME (BEAKER) (test kfyx=944) 94.6 fL 79.4-94.8 MEAN CORPUSCULAR HEMOGLOBIN (BEAKER) (test 31.0 pg 25.6-32.2 uhtb=251) MEAN CORPUSCULAR HEMOGLOBIN CONC (BEAKER) (test 32.8 GM/DL 32.2-35.5 puty=149) RED CELL DISTRIBUTION WIDTH (BEAKER) (test 13.1 % 11.7-14.4 ovja=245) PLATELET COUNT (BEAKER) (test mmbc=593) 198 K/CU MM 150-450 MEAN PLATELET VOLUME (BEAKER) (test hpua=576) 10.3 fL 9.4-12.3 NUCLEATED RED BLOOD CELLS (BEAKER) (test 0 /100 WBC 0-0 yglw=647) [id number] 11:06:00 Test Item Value Reference Range Comments ACTIVATED CLOTTING TIME 263 sec Reference Range: 74-137 (BEAKER) (test ecuk=302) seconds, Baseline/TESTED AT [address] [address] [id number] 10:50:00 Test Item Value Reference Range Comments ACTIVATED CLOTTING TIME 263 sec Reference Range: 74-137 (BEAKER) (test wgvs=403) seconds, Baseline/TESTED AT [address] [address] POCT-GLUCOSE [id number] 07:45:00 Test Item Value Reference Range Comments POC-GLUCOSE METER (BEAKER) 188 mg/dL 70-110 : TESTED AT [address] (test fgqt=8247) [facility], [address]: Margin Analyst/Progress Man RS=[id number] for MERRILL OSMANI BASIC METABOLIC [id number] 02:49:00 Test Item Value Reference Range Comments SODIUM (BEAKER) (test 139 meq/L 136-145 yklh=514) POTASSIUM (BEAKER) (test 3.9 meq/L 3.5-5.1 eglr=224) CHLORIDE (BEAKER) (test 99 meq/L 98-107 mqrl=007) CO2 (BEAKER) (test 30 meq/L 22-29 bykv=807) BLOOD UREA NITROGEN 56 mg/dL 7-21 (BEAKER) (test jmuc=500) CREATININE (BEAKER) (test 2.94 mg/dL 0.57-1.25 wsib=268) GLUCOSE RANDOM (BEAKER) 162 mg/dL 70-105 (test tjvp=498) CALCIUM (BEAKER) (test 9.3 mg/dL 8.4-10.2 wblz=713) EGFR (BEAKER) (test 15 mL/min/1.73 sq m ESTIMATED GFR IS NOT mojm=9494) ACCURATE CREATININE CLEARANCE IN PREDICTING GLOMERULAR FILTRATION RATE. ESTIMATED GFR IS NOT APPLICABLE FOR DIALYSIS PATIENTS. Margin Analyst ID - MARILU LB-TYPE NATRIURETIC FACTOR (BNP)2019-03-22 02:44:00 Test Item Value Reference Range Comments B-TYPE NATRIURETIC PEPTIDE (BEAKER) (test 815 pg/mL 0-100 ahhg=100) Margin Analyst ID - MARILU [id number] 02:42:00 Test Item Value Reference Range Comments PHOSPHORUS (BEAKER) (test nald=080) 4.4 mg/dL 2.3-4.7 Margin Analyst ID - MARILU [id number] 02:42:00 Test Item Value Reference Range Comments MAGNESIUM (BEAKER) (test ccqj=629) 2.1 mg/dL 1.6-2.6 Margin Analyst ID - MARILU LLIPID [id number] 02:42:00 Test Item Value Reference Range Comments TRIGLYCERIDES (BEAKER) (test jaqu=603) 102 mg/dL CHOLESTEROL (BEAKER) (test kedu=882) 161 mg/dL HDL CHOLESTEROL (BEAKER) (test hyfj=438) 40 mg/dL LDL CHOLESTEROL CALCULATED (BEAKER) (test 101 mg/dL gjjf=782) Triglyceride Reference Range: Low Risk <150 Borderline 150- 199 High Risk 200-499 Very High Risk >=500Cholesterol Reference Range: Low Risk <200 Borderline 200-239 High Risk > 240HDL Cholesterol Reference Range: Low Risk >=60 High Risk <40LDL Cholesterol Reference Range: Optimal <100 Near Optimal 100-129 Borderline 130-159 High 160-189 Very High >=190 Margin Analyst ID - [id number] 02:36:00 Test Item Value Reference Range Comments PARTIAL THROMBOPLASTIN TIME (BEAKER) (test 85.7 seconds 22.5-36.0 rbim=333) CALCIUM, [id number] 02:33:00 Test Item Value Reference Range Comments CALCIUM IONIZED (BEAKER) (test kaza=330) 1.10 mmol/L 1.12-1.27 PH, BLOOD (BEAKER) (test ctwf=6439) 7.40 CBC W/PLT COUNT & AUTO [id number] 02:23:00 Test Item Value Reference Range Comments WHITE BLOOD CELL COUNT (BEAKER) (test avei=610) 5.6 K/ L 3.5-10.5 RED BLOOD CELL COUNT (BEAKER) (test dwap=369) 3.81 M/ L 3.93-5.22 HEMOGLOBIN (BEAKER) (test lldn=718) 11.7 GM/DL 11.2-15.7 HEMATOCRIT (BEAKER) (test kenx=261) 35.5 % 34.1-44.9 MEAN CORPUSCULAR VOLUME (BEAKER) (test soye=720) 93.2 fL 79.4-94.8 MEAN CORPUSCULAR HEMOGLOBIN (BEAKER) (test 30.7 pg 25.6-32.2 udgq=281) MEAN CORPUSCULAR HEMOGLOBIN CONC (BEAKER) (test 33.0 GM/DL 32.2-35.5 zxwv=522) RED CELL DISTRIBUTION WIDTH (BEAKER) (test 13.0 % 11.7-14.4 yrgq=263) PLATELET COUNT (BEAKER) (test omkb=030) 172 K/CU MM 150-450 MEAN PLATELET VOLUME (BEAKER) (test wrlh=222) 10.2 fL 9.4-12.3 NUCLEATED RED BLOOD CELLS (BEAKER) (test 0 /100 WBC 0-0 porb=106) NEUTROPHILS RELATIVE PERCENT (BEAKER) (test 52 % gpnk=342) LYMPHOCYTES RELATIVE PERCENT (BEAKER) (test 33 % evhx=120) MONOCYTES RELATIVE PERCENT (BEAKER) (test 11 % nunj=309) EOSINOPHILS RELATIVE PERCENT (BEAKER) (test 4 % iypp=857) BASOPHILS RELATIVE PERCENT (BEAKER) (test 1 % nmjc=595) NEUTROPHILS ABSOLUTE COUNT (BEAKER) (test 2.90 K/ L 1.56-6.13 trmo=163) LYMPHOCYTES ABSOLUTE COUNT (BEAKER) (test 1.84 K/ L 1.18-3.74 jmma=838) MONOCYTES ABSOLUTE COUNT (BEAKER) (test 0.64 K/ L 0.24-0.36 icvi=791) EOSINOPHILS ABSOLUTE COUNT (BEAKER) (test 0.20 K/ L 0.04-0.36 toaj=994) BASOPHILS ABSOLUTE COUNT (BEAKER) (test 0.04 K/ L 0.01-0.08 kntk=286) IMMATURE GRANULOCYTES-RELATIVE PERCENT (BEAKER) 0 % 0-1 (test rvwv=0427) U/S, ABDOMINAL, [id number] 01:50:00Reason for exam:->abd painFINAL REPORT INDICATION: abd pain COMPARISON: Renal ultrasound dated 12/21/2018. TECHNIQUE: Real-time transabdominal lares scale and color Doppler ultrasound of the abdomen. FINDINGS:Liver: Size: 11.3cm. Echogenicity: Normal. Masses/lesions: None. Surface Nodularity: None. Intrahepatic bile ducts: Normal. Common bile duct: 0.6 cm. MPV: 0.9cm. Gallbladder: Surgically absent. Pancreas: Head and uncinate process : Unremarkable. Body and tail:Not well-seen. Spleen: Size: 8.3cm. Echogenicity: Unremarkable. Right kidney: Size: 8.8x 4.2 x 4.4 cm. Parenchyma: Normal echogenicity. No cysts. Multiple echogenic foci in the interpole measuring up to 0.4 cm may represent nephrolithiasis. Hydronephrosis: None. Left kidney: Size: 8.5 x 4.1 x 4.1 cm. Parenchyma : Normal echogenicity. Hypoechoic 1.2 cm upper pole lesion may represent a simple cyst however incompletely characterized on this examination. No stones. Hydronephrosis: None. Ascites: None. Regional Vasculature: The visible abdominal aorta, IVC and hepatic veins are patent. The aorta measures 1.6 cm proximally, 1.6 cm in the midportion 1.1 cm distally. Additional findings: None. IMPRESSION: No acute sonographic abnormality in the abdomen. Postsurgical changes of a cholecystectomy. Right nonobstructing nephrolithiasis. Incompletely characterized left upper pole 1.2 cm hypoechoic lesion. Recommend further evaluation with renal protocol cross-sectional imaging on a nonemergent basis. Signed: Socorro Méndez Verified Date/Time: 03/22/2019 01:50:03 POCT-GLUCOSE [id number] 21:37:00 Test Item Value Reference Range Comments POC-GLUCOSE METER (BEAKER) 257 mg/dL 70-110 : TESTED AT [address] (test fqoo=7332) [place] [id number]: Margin Analyst/Progress Man AL=[id number] for EMILIO LOMELI [id number] 19:18:00 Test Item Value Reference Range Comments PARTIAL THROMBOPLASTIN TIME (BEAKER) (test 53.5 seconds 22.5-36.0 apav=298) POCT-GLUCOSE [id number] 17:38:00 Test Item Value Reference Range Comments POC-GLUCOSE METER (BEAKER) 246 mg/dL 70-110 : TESTED AT [address] (test tmsy=2977) [facility], [address]: Margin Analyst/Progress Man OC=[id number] for SHY LAGOS CT, BRAIN, WITHOUT [id number] 17:36:00Reason for exam:->Left sided weakness, more so LUE than LLE - last felt normal last nightWhat is the patient' s sedation requirement?->No SedationFINAL REPORT CT, BRAIN, WITHOUT CONTRAST INDICATION: Left sided weakness, more so LUE than LLE - last felt normal last nightLeft sided weakness, more so LUE than LLE - last felt normal last night TECHNIQUE: Noncontrast axial imaging was obtained from the vertex to the skull base. Axial images were reconstructed using a bone algorithm. DOSE REDUCTION: Dose modulation, iterative reconstruction, and/or weight-based adjustment of the mA/kV was utilized to reduce the radiation doseto as low as reasonably achievable. COMPARISON: None. FINDINGS: Intracranial : Streak artifact related to cranial-cervical fusion hardware limits evaluation of the posterior fossa. No intracranial hemorrhage or abnormal extra-axial collection. No evidence of acute territorial infarct. Age-indeterminatebut chronic appearing lacunar infarct in the left lentiform nucleus. No mass effect. No hydrocephalus. Coarse extra-axial left frontal calcification. Osseous structures: No fracture. Postsurgical changes of suboccipital decompression and craniocervical fusion. Paranasal sinuses and mastoid air cells : No evidence of sinusitis. Mastoids are clear. Orbital contents: Globes are intact. IMPRESSION: Streakartifact related to craniocervical fusion limits evaluation of the posterior fossa. Otherwise, no CTevidence of acute intracranial hemorrhage or territorial infarct. If there is persistent clinical concern for intracranial pathology, MR examination is recommended for further characterization. Signed: Kavitha Boxort Verified Date/Time: 03/21/2019 17:36:00 TROPONIN [id number] 15:50:00 Test Item Value Reference Range Comments TROPONIN I (BEAKER) (test sscb=461) 0.57 ng/mL 0.00-0.03 Troponin I (TnI) levels must [...] failure, acidosis, acute neurological disease, and persistent tachyarrhythmia.Margin Analyst ID - BSRAD, SHOULDER, COMPLETE (MIN 2 VIEWS), [id number] 14:38:00Reason for exam:->shoulder pain with ROMFINAL REPORT RAD, SHOULDER, COMPLETE (MIN 2 VIEWS), LEFT COMPARISON: None INDICATION: shoulder pain with ROM FINDINGS: AP views in internal and external rotation and an axillary "Y" view of the left shoulder. Osseous structures: No fracture.Joint spaces: Intact without malalignment. Moderate degenerative changes.Soft tissues: Unremarkable IMPRESSION: No acute abnormality of the left shoulder. Signed: JR Hernandez Robert MDReport Verified Date/Time: 03/21/2019 14:38:21 Reading Location: [facility] Radiology Reading Room POCT-GLUCOSE [id number] 13:19:00 Test Item Value Reference Range Comments POC-GLUCOSE METER (BEAKER) 155 mg/dL 70-110 : TESTED AT [place] [id number] [facility] (test ncju=1484) [facility], [address]: Margin Analyst/Progress Man UR=[id number] for FARIBA ELLIS [id number] 11:14:00 Test Item Value Reference Range Comments PARTIAL THROMBOPLASTIN TIME (BEAKER) (test 108.5 seconds 22.5-36.0 zoqv=462) POCT-GLUCOSE [id number] 07:51:00 Test Item Value Reference Range Comments POC-GLUCOSE METER (BEAKER) 198 mg/dL 70-110 : TESTED AT [address] (test vfyg=3651) [facility], [address]: Margin Analyst/Progress Man XH=[id number] for SHY LAGOS [id number] 03:52:00 Test Item Value Reference Range Comments PARTIAL THROMBOPLASTIN TIME 106.2 seconds 22.5-36.0 B.no.[id number] ok to (BEAKER) (test qroy=618) released result. BASIC METABOLIC [id number] 02:58:00 Test Item Value Reference Range Comments SODIUM (BEAKER) (test 139 meq/L 136-145 hkmx=835) POTASSIUM (BEAKER) (test 3.9 meq/L 3.5-5.1 txan=563) CHLORIDE (BEAKER) (test 100 meq/L 98-107 ghgr=853) CO2 (BEAKER) (test 33 meq/L 22-29 zdti=603) BLOOD UREA NITROGEN 60 mg/dL 7-21 (BEAKER) (test xzvk=794) CREATININE (BEAKER) (test 3.09 mg/dL 0.57-1.25 asso=829) GLUCOSE RANDOM (BEAKER) 278 mg/dL 70-105 (test fwgi=904) CALCIUM (BEAKER) (test 9.1 mg/dL 8.4-10.2 loof=526) EGFR (BEAKER) (test 15 mL/min/1.73 sq m ESTIMATED GFR IS NOT dkuw=2401) ACCURATE CREATININE CLEARANCE IN PREDICTING GLOMERULAR FILTRATION RATE. ESTIMATED GFR IS NOT APPLICABLE FOR DIALYSIS PATIENTS. Margin Analyst ID - [place] [facility] [place]2019-03-21 02:32:00 Test Item Value Reference Range Comments WHITE BLOOD CELL COUNT (BEAKER) (test ccyt=416) 4.8 K/ L 3.5-10.5 RED BLOOD CELL COUNT (BEAKER) (test ygzk=892) 3.57 M/ L 3.93-5.22 HEMOGLOBIN (BEAKER) (test cdbk=147) 11.1 GM/DL 11.2-15.7 HEMATOCRIT (BEAKER) (test jtxj=833) 33.4 % 34.1-44.9 MEAN CORPUSCULAR VOLUME (BEAKER) (test dupj=425) 93.6 fL 79.4-94.8 MEAN CORPUSCULAR HEMOGLOBIN (BEAKER) (test 31.1 pg 25.6-32.2 zpvo=514) MEAN CORPUSCULAR HEMOGLOBIN CONC (BEAKER) (test 33.2 GM/DL 32.2-35.5 pvlc=811) RED CELL DISTRIBUTION WIDTH (BEAKER) (test 12.9 % 11.7-14.4 blie=494) PLATELET COUNT (BEAKER) (test fxrq=556) 170 K/CU MM 150-450 MEAN PLATELET VOLUME (BEAKER) (test zwww=885) 9.9 fL 9.4-12.3 NUCLEATED RED BLOOD CELLS (BEAKER) (test 0 /100 WBC 0-0 zuel=500) POCT-GLUCOSE [id number] 21:58:00 Test Item Value Reference Range Comments POC-GLUCOSE METER (BEAKER) 281 mg/dL 70-110 : TESTED AT [address] (test zdld=3818) [facility], [address]: Margin Analyst/Progress Man HJ=[id number] for WINSOME FONG [id number] 19:51:00 Test Item Value Reference Range Comments PARTIAL THROMBOPLASTIN TIME (BEAKER) (test 88.1 seconds 22.5-36.0 uijo=416) CREATININE, RANDOM [id number] 18:56:00 Test Item Value Reference Range Comments CREATININE URINE (BEAKER) (test rbtr=973) 56.6 mg/dL Reference Range: No NormalsOperator ID - BSPROTEIN, RANDOM [id number] 18:56 :00 Test Item Value Reference Range Comments PROTEIN, URINE (BEAKER) (test xrjj=1517) 11 mg/dL 0-14 Margin Analyst ID - BSURINALYSIS W/ [id number] 18:48:00 Test Item Value Reference Range Comments COLOR (BEAKER) (test swzl=783) Light Yellow CLARITY (BEAKER) (test ivlu=289) Clear SPECIFIC GRAVITY UA (BEAKER) (test hhpy=585) 1.011 1.001-1.035 PH UA (BEAKER) (test nyif=915) 6.0 5.0-8.0 PROTEIN UA (BEAKER) (test xqpz=309) Negative Negative GLUCOSE UA (BEAKER) (test hwab=641) 30 mg/dL Negative KETONES UA (BEAKER) (test caby=705) Negative Negative BILIRUBIN UA (BEAKER) (test ducw=641) Negative Negative BLOOD UA (BEAKER) (test bbnj=906) Negative Negative NITRITE UA (BEAKER) (test elfo=763) Negative Negative LEUKOCYTE ESTERASE UA (BEAKER) (test bomo=980) Small Negative UROBILINOGEN UA (BEAKER) (test lvch=779) 0.2 mg/dL 0.2-1.0 RBC UA (BEAKER) (test jlsv=115) < /HPF WBC UA (BEAKER) (test ujiz=642) 1 /HPF MUCUS (BEAKER) (test hpxl=0958) Rare SQUAMOUS EPITHELIAL (BEAKER) (test jtxh=576) 1 /HPF SOURCE(BEAKER) (test tppd=5579) Margin Analyst ID - [auto]Margin Analyst ID - hankPOCT-GLUCOSE [id number] 18:32:00 Test Item Value Reference Range Comments POC-GLUCOSE METER (BEAKER) 190 mg/dL 70-110 : TESTED AT [address] (test xlry=5667) [facility], [address]: Margin Analyst/Progress Man LH=[id number] for LAGOS SHY RAD, CHEST, 1 VIEW, NON [id number] 15:28:00Reason for exam:->Fluid statusShould this be performed at the bedside?->YesFINAL REPORT INDICATION: Fluid status TECHNIQUE: Chest radiograph, single view, portable technique. FINDINGS / IMPRESSION: Comparison to January 29, 2019. The heart shadow is mildly enlarged which may be related to portable technique. No pulmonary edema or pleural effusion is demonstrated. No pneumothorax or discrete pneumonia. Osseous structures are notable for old fractures both humeral heads/necks. Signed: Noemy Storm MDReport Verified Date/Time: 15:28:46 [facility] Electronically signed by: NOEMY STORM M.D. on03/20/2019 03:28 PMTROPONIN [id number] 13:36:00 Test Item Value Reference Range Comments TROPONIN I (BEAKER) (test hjlp=216) 0.78 ng/mL 0.00-0.03 Troponin I (TnI) levels must [...] failure, acidosis, acute neurological disease, and persistent tachyarrhythmia.Margin Analyst ID - TRISTON [id number] 12:50:00 Test Item Value Reference Range Comments PARTIAL THROMBOPLASTIN TIME (BEAKER) (test 65.6 seconds 22.5-36.0 pqee=478) POCT-GLUCOSE [id number] 11:57:00 Test Item Value Reference Range Comments POC-GLUCOSE METER (BEAKER) 154 mg/dL 70-110 : TESTED AT [address] (test eann=4783) [facility], [id number]: Margin Analyst/Progress Man HB=[id number] for SHY LAGOS HEMOGLOBIN [id number] 09:21:00 Test Item Value Reference Range Comments HEMOGLOBIN A1C (BEAKER) (test nxjd=043) 8.5 % 4.3-6.1 POCT-GLUCOSE [id number] 07:53:00 Test Item Value Reference Range Comments POC-GLUCOSE METER (BEAKER) 99 mg/dL 70-110 : TESTED AT [address] (test oknn=5172) [facility], [facility]: Margin Analyst/Progress Man IU=[id number] for DARRELL, KARLEY TROPONIN [id number] 06:40:00 Test Item Value Reference Range Comments TROPONIN I (BEAKER) (test blcz=847) 0.79 ng/mL 0.00-0.03 Troponin I (TnI) levels must [...] failure, acidosis, acute neurological disease, and persistent tachyarrhythmia.Margin Analyst ID - CLARIBELROPONIN [id number] 01:53:00 Test Item Value Reference Range Comments TROPONIN I (BEAKER) (test fasj=203) 0.75 ng/mL 0.00-0.03 Troponin I (TnI) levels must [...] failure, acidosis, acute neurological disease, and persistent tachyarrhythmia.Margin Analyst ID - KENNBASIC METABOLIC [id number] 01:52:00 Test Item Value Reference Range Comments SODIUM (BEAKER) (test 139 meq/L 136-145 yprv=105) POTASSIUM (BEAKER) (test 3.5 meq/L 3.5-5.1 vsow=700) CHLORIDE (BEAKER) (test 100 meq/L 98-107 ipkh=304) CO2 (BEAKER) (test 28 meq/L 22-29 mtdx=463) BLOOD UREA NITROGEN 69 mg/dL 7-21 (BEAKER) (test dkzv=490) CREATININE (BEAKER) (test 2.98 mg/dL 0.57-1.25 jjxr=526) GLUCOSE RANDOM (BEAKER) 142 mg/dL 70-105 (test zsij=134) CALCIUM (BEAKER) (test 9.5 mg/dL 8.4-10.2 acjf=242) EGFR (BEAKER) (test 15 mL/min/1.73 sq m ESTIMATED GFR IS NOT owxl=7069) ACCURATE CREATININE CLEARANCE IN PREDICTING GLOMERULAR FILTRATION RATE. ESTIMATED GFR IS NOT APPLICABLE FOR DIALYSIS PATIENTS. Margin Analyst ID - [id number] 01:25:00 Test Item Value Reference Range Comments MAGNESIUM (BEAKER) (test gocx=250) 2.2 mg/dL 1.6-2.6 Margin Analyst ID - [id number] 01:23:00 Test Item Value Reference Range Comments PARTIAL THROMBOPLASTIN TIME 109.9 seconds 22.5-36.0 B.no.[id number] ok to (BEAKER) (test bnbg=227) released result. Prior to initiating heparinCBC W/PLT COUNT & AUTO [id number] 01: 02:00 Test Item Value Reference Range Comments WHITE BLOOD CELL COUNT (BEAKER) (test hmkg=341) 5.9 K/ L 3.5-10.5 RED BLOOD CELL COUNT (BEAKER) (test fayj=696) 3.93 M/ L 3.93-5.22 HEMOGLOBIN (BEAKER) (test mqux=675) 12.0 GM/DL 11.2-15.7 HEMATOCRIT (BEAKER) (test gwee=919) 36.5 % 34.1-44.9 MEAN CORPUSCULAR VOLUME (BEAKER) (test gecc=759) 92.9 fL 79.4-94.8 MEAN CORPUSCULAR HEMOGLOBIN (BEAKER) (test 30.5 pg 25.6-32.2 mjmj=386) MEAN CORPUSCULAR HEMOGLOBIN CONC (BEAKER) (test 32.9 GM/DL 32.2-35.5 tjkv=017) RED CELL DISTRIBUTION WIDTH (BEAKER) (test 12.9 % 11.7-14.4 iaoy=599) PLATELET COUNT (BEAKER) (test yqoy=237) 184 K/CU MM 150-450 MEAN PLATELET VOLUME (BEAKER) (test khhp=863) 10.2 fL 9.4-12.3 NUCLEATED RED BLOOD CELLS (BEAKER) (test 0 /100 WBC 0-0 hebv=959) NEUTROPHILS RELATIVE PERCENT (BEAKER) (test 56 % ajxp=764) LYMPHOCYTES RELATIVE PERCENT (BEAKER) (test 31 % dslc=366) MONOCYTES RELATIVE PERCENT (BEAKER) (test 10 % mpem=084) EOSINOPHILS RELATIVE PERCENT (BEAKER) (test 2 % oksa=738) BASOPHILS RELATIVE PERCENT (BEAKER) (test 1 % jsls=921) NEUTROPHILS ABSOLUTE COUNT (BEAKER) (test 3.31 K/ L 1.56-6.13 pokj=940) LYMPHOCYTES ABSOLUTE COUNT (BEAKER) (test 1.83 K/ L 1.18-3.74 vybw=872) MONOCYTES ABSOLUTE COUNT (BEAKER) (test 0.61 K/ L 0.24-0.36 rmma=667) EOSINOPHILS ABSOLUTE COUNT (BEAKER) (test 0.14 K/ L 0.04-0.36 hufk=356) BASOPHILS ABSOLUTE COUNT (BEAKER) (test 0.03 K/ L 0.01-0.08 ttai=215) IMMATURE GRANULOCYTES-RELATIVE PERCENT (BEAKER) 0 % 0-1 (test xnkh=0526) POCT-GLUCOSE [id number] 09:17:00 Test Item Value Reference Range Comments POC-GLUCOSE METER (BEAKER) 161 mg/dL 70-110 : TESTED AT [facility] [address] (test maij=7744) [facility], [address]: Margin Analyst/Progress Man KY=[id number] for DANIELE SABA BASIC METABOLIC [id number] 07:10:00 Test Item Value Reference Range Comments SODIUM (BEAKER) (test 141 meq/L 136-145 abdq=335) POTASSIUM (BEAKER) (test 3.5 meq/L 3.5-5.1 yuck=172) CHLORIDE (BEAKER) (test 104 meq/L 98-107 hjjo=095) CO2 (BEAKER) (test 30 meq/L 22-29 haze=869) BLOOD UREA NITROGEN 76 mg/dL 7-21 (BEAKER) (test mxmr=462) CREATININE (BEAKER) (test 2.72 mg/dL 0.57-1.25 zgky=928) GLUCOSE RANDOM (BEAKER) 147 mg/dL 70-105 (test egdg=623) CALCIUM (BEAKER) (test 8.3 mg/dL 8.4-10.2 bmcn=454) EGFR (BEAKER) (test 17 mL/min/1.73 sq m ESTIMATED GFR IS NOT jnah=9467) ACCURATE CREATININE CLEARANCE IN PREDICTING GLOMERULAR FILTRATION RATE. ESTIMATED GFR IS NOT APPLICABLE FOR DIALYSIS PATIENTS. URIC [id number] 07:07:00 Test Item Value Reference Range Comments URIC ACID (BEAKER) (test iwmw=825) 9.9 mg/dL 2.6-7.2 [id number] 07:07:00 Test Item Value Reference Range Comments MAGNESIUM (BEAKER) (test hekg=837) 2.3 mg/dL 1.6-2.6 [id number] 07:07:00 Test Item Value Reference Range Comments PHOSPHORUS (BEAKER) (test heqp=646) 3.3 mg/dL 2.3-4.7 B-TYPE NATRIURETIC FACTOR (BNP)2019-01-30 06:44:00 Test Item Value Reference Range Comments B-TYPE NATRIURETIC PEPTIDE (BEAKER) (test 365 pg/mL 0-100 tqed=144) CALCIUM, [id number] 06:31:00 Test Item Value Reference Range Comments CALCIUM IONIZED (BEAKER) (test uwwy=563) 1.08 mmol/L 1.12-1.27 PH, BLOOD (BEAKER) (test kyoo=8749) 7.41 CBC W/PLT COUNT & AUTO [id number] 06:17:00 Test Item Value Reference Range Comments WHITE BLOOD CELL COUNT (BEAKER) (test dqia=346) 7.6 K/ L 3.5-10.5 RED BLOOD CELL COUNT (BEAKER) (test iywx=307) 3.23 M/ L 3.93-5.22 HEMOGLOBIN (BEAKER) (test lkiu=988) 9.9 GM/DL 11.2-15.7 HEMATOCRIT (BEAKER) (test pyxj=156) 31.1 % 34.1-44.9 MEAN CORPUSCULAR VOLUME (BEAKER) (test swuu=538) 96.3 fL 79.4-94.8 MEAN CORPUSCULAR HEMOGLOBIN (BEAKER) (test 30.7 pg 25.6-32.2 pbnl=473) MEAN CORPUSCULAR HEMOGLOBIN CONC (BEAKER) (test 31.8 GM/DL 32.2-35.5 cvox=266) RED CELL DISTRIBUTION WIDTH (BEAKER) (test 13.4 % 11.7-14.4 hopt=074) PLATELET COUNT (BEAKER) (test pgik=058) 190 K/CU MM 150-450 MEAN PLATELET VOLUME (BEAKER) (test pfuk=651) 10.3 fL 9.4-12.3 NUCLEATED RED BLOOD CELLS (BEAKER) (test 0 /100 WBC 0-0 ulzh=162) NEUTROPHILS RELATIVE PERCENT (BEAKER) (test 63 % qano=176) LYMPHOCYTES RELATIVE PERCENT (BEAKER) (test 23 % sanj=411) MONOCYTES RELATIVE PERCENT (BEAKER) (test 11 % crdw=018) EOSINOPHILS RELATIVE PERCENT (BEAKER) (test 3 % dsce=853) BASOPHILS RELATIVE PERCENT (BEAKER) (test 1 % pltk=050) NEUTROPHILS ABSOLUTE COUNT (BEAKER) (test 4.74 K/ L 1.56-6.13 noln=507) LYMPHOCYTES ABSOLUTE COUNT (BEAKER) (test 1.75 K/ L 1.18-3.74 iskx=216) MONOCYTES ABSOLUTE COUNT (BEAKER) (test 0.80 K/ L 0.24-0.36 knkk=557) EOSINOPHILS ABSOLUTE COUNT (BEAKER) (test 0.23 K/ L 0.04-0.36 eiqd=855) BASOPHILS ABSOLUTE COUNT (BEAKER) (test 0.04 K/ L 0.01-0.08 muph=074) IMMATURE GRANULOCYTES-RELATIVE PERCENT (BEAKER) 0 % 0-1 (test eouk=9090) POCT-GLUCOSE [id number] 21:20:00 Test Item Value Reference Range Comments POC-GLUCOSE METER (BEAKER) 140 mg/dL 70-110 : TESTED AT [address] (test ljgb=6015) [facility], [address]: Margin Analyst/Progress Man YV=[id number] for TingSukhFatmata CREATININE, RANDOM [id number] 19:07:00 Test Item Value Reference Range Comments CREATININE URINE (BEAKER) (test ctyg=067) 101.3 mg/dL Reference Range: No NormalsPROTEIN, RANDOM [id number] 19:07:00 Test Item Value Reference Range Comments PROTEIN, URINE (BEAKER) (test lfab=3261) 24 mg/dL 0-14 SODIUM, RANDOM [id number] 19:07:00 Test Item Value Reference Range Comments SODIUM URINE (BEAKER) (test rbfy=558) 27 meq/L Reference Range: No NormalsPOCT-GLUCOSE [id number] 17:13:00 Test Item Value Reference Range Comments POC-GLUCOSE METER (BEAKER) 172 mg/dL 70-110 : TESTED AT [address] (test txpz=8124) [facility], [address]: Margin Analyst/Progress Man OU=[id number] for EDWARDS, TIONIA URINALYSIS W/ [id number] 15:46:00 Test Item Value Reference Range Comments COLOR (BEAKER) (test xfmb=666) Yellow CLARITY (BEAKER) (test snmz=055) Clear SPECIFIC GRAVITY UA (BEAKER) (test ycaj=349) 1.014 1.001-1.035 PH UA (BEAKER) (test yjat=043) 5.5 5.0-8.0 PROTEIN UA (BEAKER) (test yrug=344) 20 mg/dL Negative GLUCOSE UA (BEAKER) (test nlpk=856) 300 mg/dL Negative KETONES UA (BEAKER) (test ldsl=754) Negative Negative BILIRUBIN UA (BEAKER) (test tgao=549) Negative Negative BLOOD UA (BEAKER) (test gsqc=997) Negative Negative NITRITE UA (BEAKER) (test gayn=447) Negative Negative LEUKOCYTE ESTERASE UA (BEAKER) (test ssgl=419) Negative Negative UROBILINOGEN UA (BEAKER) (test ytaj=741) 0.2 mg/dL 0.2-1.0 RBC UA (BEAKER) (test hgmy=975) < /HPF WBC UA (BEAKER) (test hnuw=973) < /HPF SOURCE(BEAKER) (test bsph=5450) BASIC METABOLIC [id number] 13:57:00 Test Item Value Reference Range Comments SODIUM (BEAKER) (test 136 meq/L 136-145 bsiv=241) POTASSIUM (BEAKER) (test 3.5 meq/L 3.5-5.1 bsiu=066) CHLORIDE (BEAKER) (test 97 meq/L 98-107 dmgm=998) CO2 (BEAKER) (test 30 meq/L 22-29 cgic=565) BLOOD UREA NITROGEN 82 mg/dL 7-21 (BEAKER) (test ptdv=419) CREATININE (BEAKER) (test 3.06 mg/dL 0.57-1.25 uumz=150) GLUCOSE RANDOM (BEAKER) 291 mg/dL 70-105 (test ynsx=821) CALCIUM (BEAKER) (test 8.6 mg/dL 8.4-10.2 sduv=368) EGFR (BEAKER) (test 15 mL/min/1.73 sq m ESTIMATED GFR IS NOT negy=0828) ACCURATE CREATININE CLEARANCE IN PREDICTING GLOMERULAR FILTRATION RATE. ESTIMATED GFR IS NOT APPLICABLE FOR DIALYSIS PATIENTS. [id number] 13:56:00 Test Item Value Reference Range Comments PHOSPHORUS (BEAKER) (test ryax=056) 2.6 mg/dL 2.3-4.7 [id number] 13:56:00 Test Item Value Reference Range Comments MAGNESIUM (BEAKER) (test jlmb=914) 2.4 mg/dL 1.6-2.6 RAD, CHEST, 1 VIEW, NON [id number] 13:55:00Reason for exam:->Fluid statusShould this be performed at the bedside?->YesFINAL REPORT AP chest Comparison exam: 01/25/2019 History provided: Fluid status Heart size magnified by projection. Lungs currently grossly clear, and vascularity normal. Chronicdeformity of the right humeral neck. Signed: Atul Malave MDReport Verified Date/Time: 01/29/2019 13:55:37 Reading Location: [facility] Diagnostic Imaging Reading Room - [place] [address] POCT-GLUCOSE [id number] 11: 49:00 Test Item Value Reference Range Comments POC-GLUCOSE METER (BEAKER) 273 mg/dL 70-110 : TESTED AT [facility] [address] [place] [address] (test mxmo=8432) [facility], [address]: Margin Analyst/Progress Man XC=[id number] for Tatyana Price C. DIFFICILE GDH [id number] 11:07:00 Test Item Value Reference Range Comments CDT TOXIN (test Negative Negative sevf=[id number]) CDT GDH ANTIGEN (test Positive Negative C. difficile present but toxin kfat=[id number]) not detected. Indicates colonization with non-toxigenic strain [...] of kit performance was done by the [facility] Microbiology Lab prior to clinical use.POCT-GLUCOSE [id number] 07:57:00 Test Item Value Reference Range Comments POC-GLUCOSE METER (BEAKER) 227 mg/dL 70-110 : TESTED AT [facility] [address] (test btkb=6087) [facility], [address]: Margin Analyst/Progress Man VV=[id number] for Tatyana Price CBC (HEMOGRAM ONLY)2019-01-29 05:39:00 Test Item Value Reference Range Comments WHITE BLOOD CELL COUNT (BEAKER) (test fnln=048) 9.0 K/ L 3.5-10.5 RED BLOOD CELL COUNT (BEAKER) (test yuwm=978) 3.30 M/ L 3.93-5.22 HEMOGLOBIN (BEAKER) (test omsz=077) 10.2 GM/DL 11.2-15.7 HEMATOCRIT (BEAKER) (test zspu=995) 31.5 % 34.1-44.9 MEAN CORPUSCULAR VOLUME (BEAKER) (test pxcr=088) 95.5 fL 79.4-94.8 MEAN CORPUSCULAR HEMOGLOBIN (BEAKER) (test 30.9 pg 25.6-32.2 wyny=741) MEAN CORPUSCULAR HEMOGLOBIN CONC (BEAKER) (test 32.4 GM/DL 32.2-35.5 suok=480) RED CELL DISTRIBUTION WIDTH (BEAKER) (test 13.5 % 11.7-14.4 irna=255) PLATELET COUNT (BEAKER) (test fdty=893) 196 K/CU MM 150-450 MEAN PLATELET VOLUME (BEAKER) (test yavm=218) 10.3 fL 9.4-12.3 NUCLEATED RED BLOOD CELLS (BEAKER) (test 0 /100 WBC 0-0 ojxw=427) POCT-GLUCOSE [id number] 22:07:00 Test Item Value Reference Range Comments POC-GLUCOSE METER (BEAKER) 229 mg/dL 70-110 : TESTED AT [facility] [address] (test jumd=6206) [facility], [address]: Margin Analyst/Progress Man MV=[id number] for SELINA SALAZAR OCCULT BLOOD, [id number] 22:07:00 Test Item Value Reference Range Comments FECAL OCCULT BLOOD (BEAKER) (test zpjp=431) Negative Negative POCT-GLUCOSE [id number] 12:00:00 Test Item Value Reference Range Comments POC-GLUCOSE METER (BEAKER) 208 mg/dL 70-110 : Notified RN/MD: TESTED AT (test eagt=1415) [facility] [address] [facility], [address]: Margin Analyst/Progress Man XB=[id number] for Veena Lam [id number] 09:10:00 Test Item Value Reference Range Comments PARTIAL THROMBOPLASTIN TIME (BEAKER) (test 77.4 seconds 22.5-36.0 tlup=519) POCT-GLUCOSE [id number] 08:40:00 Test Item Value Reference Range Comments POC-GLUCOSE METER (BEAKER) 153 mg/dL 70-110 : TESTED AT [facility] [address] (test djzz=2316) [facility], [address]: Margin Analyst/Progress Man RX=[id number] for JANETH INGRAM BASIC METABOLIC [id number] 05:15:00 Test Item Value Reference Range Comments SODIUM (BEAKER) (test 137 meq/L 136-145 uncf=151) POTASSIUM (BEAKER) (test 3.5 meq/L 3.5-5.1 hgtq=214) CHLORIDE (BEAKER) (test 96 meq/L 98-107 qiif=037) CO2 (BEAKER) (test 30 meq/L 22-29 fsap=635) BLOOD UREA NITROGEN 84 mg/dL 7-21 (BEAKER) (test icta=488) CREATININE (BEAKER) (test 3.26 mg/dL 0.57-1.25 iopy=955) GLUCOSE RANDOM (BEAKER) 125 mg/dL 70-105 (test ppew=966) CALCIUM (BEAKER) (test 8.9 mg/dL 8.4-10.2 zgoo=477) EGFR (BEAKER) (test 14 mL/min/1.73 sq m ESTIMATED GFR IS NOT tmne=2920) ACCURATE CREATININE CLEARANCE IN PREDICTING GLOMERULAR FILTRATION RATE. ESTIMATED GFR IS NOT APPLICABLE FOR DIALYSIS PATIENTS. [id number] 05:11:00 Test Item Value Reference Range Comments PARTIAL THROMBOPLASTIN TIME (BEAKER) (test 122.1 seconds 22.5-36.0 bexh=943) CBC (HEMOGRAM ONLY)2019-01-28 04:39:00 Test Item Value Reference Range Comments WHITE BLOOD CELL COUNT (BEAKER) (test cjup=681) 6.9 K/ L 3.5-10.5 RED BLOOD CELL COUNT (BEAKER) (test jaxz=378) 3.53 M/ L 3.93-5.22 HEMOGLOBIN (BEAKER) (test xxra=926) 10.9 GM/DL 11.2-15.7 HEMATOCRIT (BEAKER) (test nmkl=601) 33.4 % 34.1-44.9 MEAN CORPUSCULAR VOLUME (BEAKER) (test kqwp=291) 94.6 fL 79.4-94.8 MEAN CORPUSCULAR HEMOGLOBIN (BEAKER) (test 30.9 pg 25.6-32.2 pxab=568) MEAN CORPUSCULAR HEMOGLOBIN CONC (BEAKER) (test 32.6 GM/DL 32.2-35.5 cqjx=108) RED CELL DISTRIBUTION WIDTH (BEAKER) (test 13.7 % 11.7-14.4 wojf=076) PLATELET COUNT (BEAKER) (test fyxz=946) 209 K/CU MM 150-450 MEAN PLATELET VOLUME (BEAKER) (test bbzy=788) 9.8 fL 9.4-12.3 NUCLEATED RED BLOOD CELLS (BEAKER) (test 0 /100 WBC 0-0 erqg=483) POCT-GLUCOSE [id number] 22:29:00 Test Item Value Reference Range Comments POC-GLUCOSE METER (BEAKER) 235 mg/dL 70-110 : TESTED AT [address] (test wipt=4609) [facility], [address]: Margin Analyst/Progress Man KV=[id number] for HUGH PEREYRA [id number] 21:49:00 Test Item Value Reference Range Comments PARTIAL THROMBOPLASTIN TIME (BEAKER) (test 81.9 seconds 22.5-36.0 riya=090) POCT-GLUCOSE [id number] 17:50:00 Test Item Value Reference Range Comments POC-GLUCOSE METER (BEAKER) 236 mg/dL 70-110 : TESTED AT [address] (test gusi=6407) [facility], [facility]: Margin Analyst/Progress Man LL=[id number] for INDIO MCCRAY [id number] 16:52:00 Test Item Value Reference Range Comments PROTIME (BEAKER) (test lgws=927) 13.7 seconds 11.9-14.2 INR (BEAKER) (test zxqq=006) 1.1 <=5.9 PARTIAL THROMBOPLASTIN TIME (BEAKER) (test 60.7 seconds 22.5-36.0 txmh=505) Effective 07/18/2018: PT Reference Range ChangeNew: 11.9-14.2 Previous: 11.7- 14.7RECOMMENDED COUMADIN/WARFARIN INR THERAPY RANGESSTANDARD DOSE: 2.0-3.0 Includes: PROPHYLAXIS for venous thrombosis, systemic embolization; TREATMENT for venous thrombosis and/or pulmonary embolus.HIGH RISK: Target INR is2.5-3.5 for patients wiht mechanical heart valves.PT/[id number] 13:41:00 Test Item Value Reference Range Comments PROTIME (BEAKER) (test tkmj=573) 14.1 seconds 11.9-14.2 INR (BEAKER) (test mcce=114) 1.2 <=5.9 PARTIAL THROMBOPLASTIN TIME (BEAKER) (test 132.4 seconds 22.5-36.0 eono=370) Effective 07/18/2018: PT Reference Range ChangeNew: 11.9-14.2 Previous: 11.7- 14.7RECOMMENDED COUMADIN/WARFARIN INR THERAPY RANGESSTANDARD DOSE: 2.0-3.0 Includes: PROPHYLAXIS for venous thrombosis, systemic embolization; TREATMENT for venous thrombosis and/or pulmonary embolus.HIGH RISK: Target INR is2.5-3.5 for patients wiht mechanical heart valves.POCT-GLUCOSE [id number] 12:47:00 Test Item Value Reference Range Comments POC-GLUCOSE METER (BEAKER) 229 mg/dL 70-110 : TESTED AT [address] (test xzen=0871) [facility], [address]: Margin Analyst/Progress Man TI=[id number] for QUILA, INDIO POCT-GLUCOSE [id number] 09:42:00 Test Item Value Reference Range Comments POC-GLUCOSE METER (BEAKER) 188 mg/dL 70-110 : TESTED AT [address] (test gxnz=2423) [facility], [address]: Margin Analyst/Progress Man FZ=[id number] for QUILA, INDIO [id number] 06:24:00 Test Item Value Reference Range Comments PARTIAL THROMBOPLASTIN TIME (BEAKER) (test 86.3 seconds 22.5-36.0 diqg=960) BASIC METABOLIC [id number] 04:52:00 Test Item Value Reference Range Comments SODIUM (BEAKER) (test 140 meq/L 136-145 abmq=153) POTASSIUM (BEAKER) (test 3.6 meq/L 3.5-5.1 nmql=014) CHLORIDE (BEAKER) (test 99 meq/L 98-107 nvar=522) CO2 (BEAKER) (test 27 meq/L 22-29 fklj=323) BLOOD UREA NITROGEN 77 mg/dL 7-21 (BEAKER) (test iqja=132) CREATININE (BEAKER) (test 3.29 mg/dL 0.57-1.25 dvfu=227) GLUCOSE RANDOM (BEAKER) 135 mg/dL 70-105 (test ygjg=552) CALCIUM (BEAKER) (test 9.6 mg/dL 8.4-10.2 afkh=497) EGFR (BEAKER) (test 14 mL/min/1.73 sq m ESTIMATED GFR IS NOT slhl=9294) ACCURATE CREATININE CLEARANCE IN PREDICTING GLOMERULAR FILTRATION RATE. ESTIMATED GFR IS NOT APPLICABLE FOR DIALYSIS PATIENTS. [id number] 04:25:00 Test Item Value Reference Range Comments PARTIAL THROMBOPLASTIN TIME (BEAKER) (test 158.8 seconds 22.5-36.0 qwtq=275) CBC (HEMOGRAM ONLY)2019-01-27 04:07:00 Test Item Value Reference Range Comments WHITE BLOOD CELL COUNT (BEAKER) (test rstz=706) 8.7 K/ L 3.5-10.5 RED BLOOD CELL COUNT (BEAKER) (test fnsx=242) 4.08 M/ L 3.93-5.22 HEMOGLOBIN (BEAKER) (test tpaa=105) 12.4 GM/DL 11.2-15.7 HEMATOCRIT (BEAKER) (test qjwh=263) 39.4 % 34.1-44.9 MEAN CORPUSCULAR VOLUME (BEAKER) (test bkdp=597) 96.6 fL 79.4-94.8 MEAN CORPUSCULAR HEMOGLOBIN (BEAKER) (test 30.4 pg 25.6-32.2 cubq=238) MEAN CORPUSCULAR HEMOGLOBIN CONC (BEAKER) (test 31.5 GM/DL 32.2-35.5 ryeu=841) RED CELL DISTRIBUTION WIDTH (BEAKER) (test 13.9 % 11.7-14.4 qopg=864) PLATELET COUNT (BEAKER) (test lgqw=081) 227 K/CU MM 150-450 MEAN PLATELET VOLUME (BEAKER) (test xehp=207) 9.8 fL 9.4-12.3 NUCLEATED RED BLOOD CELLS (BEAKER) (test 0 /100 WBC 0-0 mejx=202) POCT-GLUCOSE [id number] 04:03:00 Test Item Value Reference Range Comments POC-GLUCOSE METER (BEAKER) 123 mg/dL 70-110 : TESTED AT [address] (test dcez=0514) [facility], [address]: Margin Analyst/Progress Man QD=737778 for ANDI SLAUGHTER POCT-GLUCOSE [id number] 21:41:00 Test Item Value Reference Range Comments POC-GLUCOSE METER (BEAKER) 293 mg/dL 70-110 : TESTED AT [address] (test dalt=5079) [facility], [address]: Margin Analyst/Progress Man PN=[id number] for NADI SLAUGHTER [id number] 19:17:00 Test Item Value Reference Range Comments PARTIAL THROMBOPLASTIN TIME (BEAKER) (test 27.4 seconds 22.5-36.0 teii=264) Prior to initiating heparinPLATELET [id number] 18:53:00 Test Item Value Reference Range Comments PLATELET COUNT (BEAKER) (test sbvk=218) 249 K/CU MM 150-450 POCT-GLUCOSE [id number] 13:46:00 Test Item Value Reference Range Comments POC-GLUCOSE METER (BEAKER) 246 mg/dL 70-110 : Notified RN/MD: TESTED AT (test ugyu=8218) [address], [address]: Margin Analyst/Progress Man NE=09135 for Veena Lam POCT-GLUCOSE [id number] 08:33:00 Test Item Value Reference Range Comments POC-GLUCOSE METER (BEAKER) 124 mg/dL 70-110 : Notified RN/MD: TESTED AT (test jspx=1266) [address], [address]: Margin Analyst/Progress Man TA=99401 for Veena Lam TROPONIN [id number] 07:02:00 Test Item Value Reference Range Comments TROPONIN I (BEAKER) (test adco=267) 0.27 ng/mL 0.00-0.03 Troponin I (TnI) levels [...] Comments WHITE BLOOD CELL COUNT (BEAKER) (test dflo=430) 7.0 K/ L 3.5-10.5 RED BLOOD CELL COUNT (BEAKER) (test cgoz=367) 3.89 M/ L 3.93-5.22 HEMOGLOBIN (BEAKER) (test kmev=141) 12.0 GM/DL 11.2-15.7 HEMATOCRIT (BEAKER) (test wgtq=384) 37.2 % 34.1-44.9 MEAN CORPUSCULAR VOLUME (BEAKER) (test uwoi=701) 95.6 fL 79.4-94.8 MEAN CORPUSCULAR HEMOGLOBIN (BEAKER) (test 30.8 pg 25.6-32.2 begc=201) MEAN CORPUSCULAR HEMOGLOBIN CONC (BEAKER) (test 32.3 GM/DL 32.2-35.5 ggiq=643) RED CELL DISTRIBUTION WIDTH (BEAKER) (test 14.1 % 11.7-14.4 wqcr=494) PLATELET COUNT (BEAKER) (test qvzy=367) 235 K/CU MM 150-450 MEAN PLATELET VOLUME (BEAKER) (test qfvp=185) 9.9 fL 9.4-12.3 NUCLEATED RED BLOOD CELLS (BEAKER) (test 0 /100 WBC 0-0 xsoj=819) POCT-GLUCOSE [id number] 05:54:00 Test Item Value Reference Range Comments POC-GLUCOSE METER (BEAKER) 94 mg/dL 70-110 : TESTED AT [facility] [address] [facility] (test fvzw=4800) [facility], [address]: Margin Analyst/Progress Man QX=[id number] for JEROME NORRIS RAD, CHEST, 1 VIEW, NON [id number] 03:34:00Reason for exam:->chest painShould this be performed [...] No acute intrathoracic abnormality. Signed: Yuan Ying [facility] Verified Date/Time: 03:34:50 Electronically signed by: YUAN YING MD on 2018 03:34 AMTROPONIN [id number] 00:11:00 Test Item Value Reference Range Comments TROPONIN I (BEAKER) (test gmfj=688) 0.26 ng/mL 0.00-0.03 Troponin I (TnI) levels [...] acute neurological disease, and persistent tachyarrhythmia.COMPREHENSIVE METABOLIC [id number] 00:09:00 Test Item Value Reference Range Comments TOTAL PROTEIN (BEAKER) 6.8 gm/dL 6.0-8.3 Specimen slightly (test osyk=078) hemolyzed ALBUMIN (BEAKER) (test 3.7 g/dL 3.5-5.0 Specimen slightly zyon=7892) hemolyzed ALKALINE PHOSPHATASE 99 U/L 40-150 (BEAKER) (test rnhf=909) BILIRUBIN TOTAL (BEAKER) 0.3 mg/dL 0.2-1.2 Specimen slightly (test deun=341) hemolyzed SODIUM (BEAKER) (test 138 meq/L 136-145 chxk=504) POTASSIUM (BEAKER) (test 4.0 meq/L 3.5-5.1 Specimen slightly pegp=509) hemolyzed CHLORIDE (BEAKER) (test 98 meq/L 98-107 mllh=493) CO2 (BEAKER) (test 30 meq/L 22-29 idbz=483) BLOOD UREA NITROGEN 75 mg/dL 7-21 (BEAKER) (test ccgw=028) CREATININE (BEAKER) (test 3.06 mg/dL 0.57-1.25 Specimen slightly kpoj=911) hemolyzed GLUCOSE RANDOM (BEAKER) 197 mg/dL 70-105 (test furf=063) CALCIUM (BEAKER) (test 9.7 mg/dL 8.4-10.2 mtob=884) AST (SGOT) (BEAKER) (test 15 U/L 5-34 Specimen slightly xcsr=713) hemolyzed ALT (SGPT) (BEAKER) (test 10 U/L 6-55 Specimen slightly rduq=928) hemolyzed EGFR (BEAKER) (test 15 mL/min/1.73 sq m ESTIMATED GFR IS NOT acqn=1487) ACCURATE CREATININE CLEARANCE IN PREDICTING GLOMERULAR FILTRATION RATE. ESTIMATED GFR IS NOT APPLICABLE FOR DIALYSIS PATIENTS. B-TYPE NATRIURETIC FACTOR (BNP)2019-01-25 23:58:00 Test Item Value Reference Range Comments B-TYPE NATRIURETIC PEPTIDE (BEAKER) (test 638 pg/mL 0-100 scwn=587) [id number] 23:56:00 Test Item Value Reference Range Comments MAGNESIUM (BEAKER) (test 2.3 mg/dL 1.6-2.6 Specimen slightly hemolyzed jfmw=978) [id number] 23:53:00 Test Item Value Reference Range Comments PARTIAL THROMBOPLASTIN TIME (BEAKER) (test 20.7 seconds 22.5-36.0 lxum=832) Prior to initiating heparinPROTHROMBIN TIME/[id number] 23:41:00 Test Item Value Reference Range Comments PROTIME (BEAKER) (test guzx=698) 13.2 seconds 11.9-14.2 INR (BEAKER) (test soio=217) 1.1 <=5.9 Effective 07/18/2018: PT Reference Range ChangeNew: 11.9-14.2 Previous: 11.7- 14.7RECOMMENDED COUMADIN/WARFARIN INR THERAPY RANGESSTANDARD DOSE: 2.0-3.0 Includes: PROPHYLAXIS for venous thrombosis, systemic embolization; TREATMENT for venous thrombosis and/or pulmonary embolus.HIGH RISK: Target INR is2.5-3.5 for patients wiht mechanical heart valves.Prior to initiating [id number] 23:41:00 Test Item Value Reference Range Comments PARTIAL THROMBOPLASTIN TIME (BEAKER) (test 22.3 seconds 22.5-36.0 vgmy=499) 6 hours after starting heparin infusion and as indicated per sliding scaleC W/ PLT COUNT & AUTO [id number] 23:33:00 Test Item Value Reference Range Comments WHITE BLOOD CELL COUNT (BEAKER) (test ievx=690) 7.6 K/ L 3.5-10.5 RED BLOOD CELL COUNT (BEAKER) (test sdcz=219) 3.62 M/ L 3.93-5.22 HEMOGLOBIN (BEAKER) (test jcls=521) 11.2 GM/DL 11.2-15.7 HEMATOCRIT (BEAKER) (test mhch=603) 34.7 % 34.1-44.9 MEAN CORPUSCULAR VOLUME (BEAKER) (test dnrk=560) 95.9 fL 79.4-94.8 MEAN CORPUSCULAR HEMOGLOBIN (BEAKER) (test 30.9 pg 25.6-32.2 qfue=079) MEAN CORPUSCULAR HEMOGLOBIN CONC (BEAKER) (test 32.3 GM/DL 32.2-35.5 frzy=145) RED CELL DISTRIBUTION WIDTH (BEAKER) (test 14.2 % 11.7-14.4 szxv=041) PLATELET COUNT (BEAKER) (test qpal=949) 240 K/CU MM 150-450 MEAN PLATELET VOLUME (BEAKER) (test sevu=779) 9.9 fL 9.4-12.3 NUCLEATED RED BLOOD CELLS (BEAKER) (test 0 /100 WBC 0-0 itoa=885) NEUTROPHILS RELATIVE PERCENT (BEAKER) (test 59 % wqvn=250) LYMPHOCYTES RELATIVE PERCENT (BEAKER) (test 27 % lplx=204) MONOCYTES RELATIVE PERCENT (BEAKER) (test 10 % eztp=222) EOSINOPHILS RELATIVE PERCENT (BEAKER) (test 3 % kepz=664) BASOPHILS RELATIVE PERCENT (BEAKER) (test 0 % ahvw=558) NEUTROPHILS ABSOLUTE COUNT (BEAKER) (test 4.47 K/ L 1.56-6.13 ehyv=384) LYMPHOCYTES ABSOLUTE COUNT (BEAKER) (test 2.07 K/ L 1.18-3.74 pjkb=801) MONOCYTES ABSOLUTE COUNT (BEAKER) (test 0.77 K/ L 0.24-0.36 ttna=596) EOSINOPHILS ABSOLUTE COUNT (BEAKER) (test 0.24 K/ L 0.04-0.36 swmn=307) BASOPHILS ABSOLUTE COUNT (BEAKER) (test 0.03 K/ L 0.01-0.08 kkfp=602) IMMATURE GRANULOCYTES-RELATIVE PERCENT (BEAKER) 0 % 0-1 (test xnhe=7932) POCT-GLUCOSE [id number] 22:21:00 Test Item Value Reference Range Comments POC-GLUCOSE METER (BEAKER) 210 mg/dL 70-110 : TESTED AT [address] (test ckox=5840) [facility], [address]: Margin Analyst/Progress Man [id number] for JR JEROME POCT-GLUCOSE [id number] 12:57:00 Test Item Value Reference Range Comments POC-GLUCOSE METER (BEAKER) 318 mg/dL 70-110 : TESTED AT [address] (test dpgb=0323) [facility] [facility], [address]: Margin Analyst/Progress Man EQ=[id number] for LEX RODRIGUEZ POCT-GLUCOSE [id number] 08:08:00 Test Item Value Reference Range Comments POC-GLUCOSE METER (BEAKER) 263 mg/dL 70-110 : TESTED AT [address] (test ahmn=1305) [facility], [address]: Margin Analyst/Progress Man FA=[id number] for NOVA PERSAUD CBC W/PLT COUNT & AUTO [id number] 05:21:00 Test Item Value Reference Range Comments WHITE BLOOD CELL COUNT (BEAKER) (test dgfc=630) 6.6 K/ L 3.5-10.5 RED BLOOD CELL COUNT (BEAKER) (test suci=167) 4.03 M/ L 3.93-5.22 HEMOGLOBIN (BEAKER) (test iozu=574) 12.0 GM/DL 11.2-15.7 HEMATOCRIT (BEAKER) (test cwdn=080) 37.8 % 34.1-44.9 MEAN CORPUSCULAR VOLUME (BEAKER) (test apmh=074) 93.8 fL 79.4-94.8 MEAN CORPUSCULAR HEMOGLOBIN (BEAKER) (test 29.8 pg 25.6-32.2 bthb=274) MEAN CORPUSCULAR HEMOGLOBIN CONC (BEAKER) (test 31.7 GM/DL 32.2-35.5 eviz=660) RED CELL DISTRIBUTION WIDTH (BEAKER) (test 15.8 % 11.7-14.4 dgbc=851) PLATELET COUNT (BEAKER) (test sfks=548) 226 K/CU MM 150-450 MEAN PLATELET VOLUME (BEAKER) (test cgua=013) 10.5 fL 9.4-12.3 NUCLEATED RED BLOOD CELLS (BEAKER) (test 0 /100 WBC 0-0 zprz=722) NEUTROPHILS RELATIVE PERCENT (BEAKER) (test 82 % yjdp=588) LYMPHOCYTES RELATIVE PERCENT (BEAKER) (test 15 % uhmh=784) MONOCYTES RELATIVE PERCENT (BEAKER) (test 1 % ejfw=575) EOSINOPHILS RELATIVE PERCENT (BEAKER) (test 0 % upvn=030) BASOPHILS RELATIVE PERCENT (BEAKER) (test 0 % wzrq=153) NEUTROPHILS ABSOLUTE COUNT (BEAKER) (test 5.38 K/ L 1.56-6.13 kpnf=069) LYMPHOCYTES ABSOLUTE COUNT (BEAKER) (test 1.01 K/ L 1.18-3.74 dyfk=251) MONOCYTES ABSOLUTE COUNT (BEAKER) (test 0.08 K/ L 0.24-0.36 hemd=244) EOSINOPHILS ABSOLUTE COUNT (BEAKER) (test 0.00 K/ L 0.04-0.36 equj=687) BASOPHILS ABSOLUTE COUNT (BEAKER) (test 0.02 K/ L 0.01-0.08 uhsa=234) IMMATURE GRANULOCYTES-RELATIVE PERCENT (BEAKER) 1 % 0-1 (test jslp=2327) BASIC METABOLIC [id number] 05:18:00 Test Item Value Reference Range Comments SODIUM (BEAKER) (test 137 meq/L 136-145 xugf=920) POTASSIUM (BEAKER) (test 4.3 meq/L 3.5-5.1 pkri=681) CHLORIDE (BEAKER) (test 100 meq/L 98-107 deqe=998) CO2 (BEAKER) (test 27 meq/L 22-29 napc=984) BLOOD UREA NITROGEN 74 mg/dL 7-21 (BEAKER) (test juer=022) CREATININE (BEAKER) (test 2.85 mg/dL 0.57-1.25 hbjw=694) GLUCOSE RANDOM (BEAKER) 266 mg/dL 70-105 (test vsyl=909) CALCIUM (BEAKER) (test 9.5 mg/dL 8.4-10.2 saxa=223) EGFR (BEAKER) (test 16 mL/min/1.73 sq m ESTIMATED GFR IS NOT jzkd=2464) ACCURATE CREATININE CLEARANCE IN PREDICTING GLOMERULAR FILTRATION RATE. ESTIMATED GFR IS NOT APPLICABLE FOR DIALYSIS PATIENTS. [id number] 05:17:00 Test Item Value Reference Range Comments PHOSPHORUS (BEAKER) (test zaoe=880) 4.4 mg/dL 2.3-4.7 [id number] 05:17:00 Test Item Value Reference Range Comments MAGNESIUM (BEAKER) (test vvbt=874) 2.0 mg/dL 1.6-2.6 B-TYPE NATRIURETIC FACTOR (BNP)2018-12-25 04:55:00 Test Item Value Reference Range Comments B-TYPE NATRIURETIC PEPTIDE (BEAKER) (test 775 pg/mL 0-100 becr=733) CALCIUM, [id number] 04:45:00 Test Item Value Reference Range Comments CALCIUM IONIZED (BEAKER) (test xzvp=931) 1.16 mmol/L 1.12-1.27 PH, BLOOD (BEAKER) (test hmgb=7483) 7.32 POCT-GLUCOSE [id number] 23:15:00 Test Item Value Reference Range Comments POC-GLUCOSE METER (BEAKER) 280 mg/dL 70-110 : Notified RN/MD: TESTED AT (test wzxc=4600) [place] [id number] [facility], [address]: Margin Analyst/Progress Man DZ=[id number] for GULSHAN GILMORE POCT-GLUCOSE [id number] 23:13:00 Test Item Value Reference Range Comments POC-GLUCOSE METER (BEAKER) 179 mg/dL 70-110 : TESTED AT [address] (test rsbv=9774) [facility], [address]: Margin Analyst/Progress Man BG=[id number] for GULSHAN GILMORE [id number] 22:12:00 Test Item Value Reference Range Comments ACTIVATED CLOTTING TIME 147 sec Reference Range: 74-137 (BEAKER) (test lfmp=610) seconds, Baseline/TESTED AT [address] [address] [id number] 17:58:00 Test Item Value Reference Range Comments ACTIVATED CLOTTING TIME 257 sec Reference Range: 74-137 (BEAKER) (test bmyv=410) seconds, Baseline/TESTED AT [address] [address] [id number] 17:57:00 Test Item Value Reference Range Comments ACTIVATED CLOTTING TIME 252 sec Reference Range: 74-137 (BEAKER) (test psig=329) seconds, Baseline/TESTED AT [address] [address] POCT-GLUCOSE [id number] 12:58:00 Test Item Value Reference Range Comments POC-GLUCOSE METER (BEAKER) 150 mg/dL 70-110 : TESTED AT [address] (test rohw=3995) [facility], [address]: Margin Analyst/Progress Man UJ=[id number] for MUKESH LYNN [id number] 08:41:00 Test Item Value Reference Range Comments PARTIAL THROMBOPLASTIN TIME (BEAKER) (test 69.4 seconds 22.5-36.0 txip=843) POCT-GLUCOSE [id number] 08:37:00 Test Item Value Reference Range Comments POC-GLUCOSE METER (BEAKER) 115 mg/dL 70-110 : Notified RN/MD: TESTED AT (test hitx=5667) [address], [address]: Margin Analyst/Progress Man ME=[id number] for Adilene Madrigal COMPREHENSIVE METABOLIC [id number] 01:52:00 Test Item Value Reference Range Comments TOTAL PROTEIN (BEAKER) 6.5 gm/dL 6.0-8.3 Specimen slightly (test bdoe=194) hemolyzed ALBUMIN (BEAKER) (test 3.6 g/dL 3.5-5.0 Specimen slightly vwtv=5307) hemolyzed ALKALINE PHOSPHATASE 89 U/L 40-150 (BEAKER) (test pecp=383) BILIRUBIN TOTAL (BEAKER) 0.4 mg/dL 0.2-1.2 Specimen slightly (test doip=749) hemolyzed SODIUM (BEAKER) (test 136 meq/L 136-145 mloq=845) POTASSIUM (BEAKER) (test 4.0 meq/L 3.5-5.1 Specimen slightly cftg=216) hemolyzed CHLORIDE (BEAKER) (test 100 meq/L 98-107 cmbf=988) CO2 (BEAKER) (test 24 meq/L 22-29 obcy=851) BLOOD UREA NITROGEN 77 mg/dL 7-21 (BEAKER) (test fxzb=257) CREATININE (BEAKER) (test 2.79 mg/dL 0.57-1.25 Specimen slightly hrer=746) hemolyzed GLUCOSE RANDOM (BEAKER) 89 mg/dL 70-105 (test pdkj=702) CALCIUM (BEAKER) (test 9.3 mg/dL 8.4-10.2 ibqs=208) AST (SGOT) (BEAKER) (test 18 U/L 5-34 Specimen slightly atqc=396) hemolyzed ALT (SGPT) (BEAKER) (test 10 U/L 6-55 Specimen slightly jkeg=343) hemolyzed EGFR (BEAKER) (test 16 mL/min/1.73 sq m ESTIMATED GFR IS NOT crpd=8149) ACCURATE CREATININE CLEARANCE IN PREDICTING GLOMERULAR FILTRATION RATE. ESTIMATED GFR IS NOT APPLICABLE FOR DIALYSIS PATIENTS. [id number] 01:29:00 Test Item Value Reference Range Comments PARTIAL THROMBOPLASTIN TIME (BEAKER) (test 51.5 seconds 22.5-36.0 caow=588) POCT-GLUCOSE [id number] 18:32:00 Test Item Value Reference Range Comments POC-GLUCOSE METER (BEAKER) 185 mg/dL 70-110 : TESTED AT [place] [id number] [facility] (test vksc=0969) [facility], [address]: Margin Analyst/Progress Man QE=[id number] for MartínAkash POCT-GLUCOSE [id number] 18:31:00 Test Item Value Reference Range Comments POC-GLUCOSE METER (BEAKER) 210 mg/dL 70-110 : TESTED AT [place] [id number] [facility] (test isxu=3611) [facility], [address]: Margin Analyst/Progress Man OH=[id number] for MartínAkash POCT-GLUCOSE [id number] 18:29:00 Test Item Value Reference Range Comments POC-GLUCOSE METER (BEAKER) 150 mg/dL 70-110 : TESTED AT [facility] [address] (test bkgy=4706) [facility], [address]: Margin Analyst/Progress Man PN=[id number] for LIZ WATSON [id number] 16:30:00 Test Item Value Reference Range Comments PARTIAL THROMBOPLASTIN TIME (BEAKER) (test 98.0 seconds 22.5-36.0 qyeh=247) TROPONIN [id number] 09:11:00 Test Item Value Reference Range Comments TROPONIN I (BEAKER) (test czjc=234) 0.97 ng/mL 0.00-0.03 Troponin I (TnI) levels [...] failure, acidosis, acute neurological disease, and persistent tachyarrhythmia.[id number] 07:52:00 Test Item Value Reference Range Comments PHOSPHORUS (BEAKER) (test rxri=717) 3.9 mg/dL 2.3-4.7 [id number] 07:52:00 Test Item Value Reference Range Comments MAGNESIUM (BEAKER) (test ogvs=062) 2.0 mg/dL 1.6-2.6 COMPREHENSIVE METABOLIC [id number] 07:52:00 Test Item Value Reference Range Comments TOTAL PROTEIN (BEAKER) 6.0 gm/dL 6.0-8.3 (test tryd=426) ALBUMIN (BEAKER) (test 3.4 g/dL 3.5-5.0 sedv=7294) ALKALINE PHOSPHATASE 81 U/L 40-150 (BEAKER) (test eehz=104) BILIRUBIN TOTAL (BEAKER) 0.5 mg/dL 0.2-1.2 (test lqwa=125) SODIUM (BEAKER) (test 138 meq/L 136-145 cfym=926) POTASSIUM (BEAKER) (test 3.6 meq/L 3.5-5.1 yozu=785) CHLORIDE (BEAKER) (test 100 meq/L 98-107 jtrc=167) CO2 (BEAKER) (test 28 meq/L 22-29 wfsi=259) BLOOD UREA NITROGEN 82 mg/dL 7-21 (BEAKER) (test wzlj=546) CREATININE (BEAKER) (test 3.06 mg/dL 0.57-1.25 lqtq=198) GLUCOSE RANDOM (BEAKER) 128 mg/dL 70-105 (test flmk=498) CALCIUM (BEAKER) (test 8.9 mg/dL 8.4-10.2 rfke=994) AST (SGOT) (BEAKER) (test 15 U/L 5-34 lwyl=712) ALT (SGPT) (BEAKER) (test 10 U/L 6-55 lnpu=376) EGFR (BEAKER) (test 15 mL/min/1.73 sq m ESTIMATED GFR IS NOT lbfp=2814) ACCURATE CREATININE CLEARANCE IN PREDICTING GLOMERULAR FILTRATION RATE. ESTIMATED GFR IS NOT APPLICABLE FOR DIALYSIS PATIENTS. CALCIUM, [id number] 07:37:00 Test Item Value Reference Range Comments CALCIUM IONIZED (BEAKER) (test tpsy=104) 1.14 mmol/L 1.12-1.27 PH, BLOOD (BEAKER) (test vefm=9807) 7.40 B-TYPE NATRIURETIC FACTOR (BNP)2018-12-23 06:42:00 Test Item Value Reference Range Comments B-TYPE NATRIURETIC PEPTIDE (BEAKER) (test 190 pg/mL 0-100 hhxf=513) [id number] 05:48:00 Test Item Value Reference Range Comments PARTIAL THROMBOPLASTIN TIME (BEAKER) (test 90.8 seconds 22.5-36.0 vbvn=763) CBC W/PLT COUNT & AUTO [id number] 05:35:00 Test Item Value Reference Range Comments WHITE BLOOD CELL COUNT (BEAKER) (test vrjh=682) 7.7 K/ L 3.5-10.5 RED BLOOD CELL COUNT (BEAKER) (test qgcl=929) 3.43 M/ L 3.93-5.22 HEMOGLOBIN (BEAKER) (test jnwm=225) 10.2 GM/DL 11.2-15.7 HEMATOCRIT (BEAKER) (test dttm=041) 31.2 % 34.1-44.9 MEAN CORPUSCULAR VOLUME (BEAKER) (test xiww=267) 91.0 fL 79.4-94.8 MEAN CORPUSCULAR HEMOGLOBIN (BEAKER) (test 29.7 pg 25.6-32.2 wjfy=786) MEAN CORPUSCULAR HEMOGLOBIN CONC (BEAKER) (test 32.7 GM/DL 32.2-35.5 mcch=328) RED CELL DISTRIBUTION WIDTH (BEAKER) (test 15.8 % 11.7-14.4 kziy=726) PLATELET COUNT (BEAKER) (test vfua=973) 188 K/CU MM 150-450 MEAN PLATELET VOLUME (BEAKER) (test rlgg=566) 10.0 fL 9.4-12.3 NUCLEATED RED BLOOD CELLS (BEAKER) (test 0 /100 WBC 0-0 icxy=830) NEUTROPHILS RELATIVE PERCENT (BEAKER) (test 65 % orrt=994) LYMPHOCYTES RELATIVE PERCENT (BEAKER) (test 19 % jaim=199) MONOCYTES RELATIVE PERCENT (BEAKER) (test 9 % zhgh=377) EOSINOPHILS RELATIVE PERCENT (BEAKER) (test 6 % ovdg=562) BASOPHILS RELATIVE PERCENT (BEAKER) (test 1 % reii=401) NEUTROPHILS ABSOLUTE COUNT (BEAKER) (test 4.99 K/ L 1.56-6.13 vpci=580) LYMPHOCYTES ABSOLUTE COUNT (BEAKER) (test 1.46 K/ L 1.18-3.74 gjje=514) MONOCYTES ABSOLUTE COUNT (BEAKER) (test 0.68 K/ L 0.24-0.36 bgpu=994) EOSINOPHILS ABSOLUTE COUNT (BEAKER) (test 0.47 K/ L 0.04-0.36 kbgd=193) BASOPHILS ABSOLUTE COUNT (BEAKER) (test 0.04 K/ L 0.01-0.08 rlln=679) IMMATURE GRANULOCYTES-RELATIVE PERCENT (BEAKER) 1 % 0-1 (test vupo=4161) POCT-GLUCOSE [id number] 21:16:00 Test Item Value Reference Range Comments POC-GLUCOSE METER (BEAKER) 200 mg/dL 70-110 : TESTED AT [facility] [address] [facility] (test fmxu=9615) [facility], [address]: Margin Analyst/Progress Man FO=[id number] for GISSELLE LOWERY [id number] 20:08:00 Test Item Value Reference Range Comments PARTIAL THROMBOPLASTIN TIME (BEAKER) (test 51.9 seconds 22.5-36.0 fbqf=573) POCT-GLUCOSE [id number] 17:37:00 Test Item Value Reference Range Comments POC-GLUCOSE METER (BEAKER) 211 mg/dL 70-110 : TESTED AT [address] (test tfit=4759) [facility], [address]: Margin Analyst/Progress Man PD=[id number] for Deepa Duenas [id number] 13:26:00 Test Item Value Reference Range Comments PARTIAL THROMBOPLASTIN TIME (BEAKER) (test 65.2 seconds 22.5-36.0 rgir=766) POCT-GLUCOSE [id number] 13:18:00 Test Item Value Reference Range Comments POC-GLUCOSE METER (BEAKER) 194 mg/dL 70-110 : TESTED AT [address] (test jmmg=8817) [facility], [address]: Margin Analyst/Progress Man DQ=[id number] for Deepa Duenas HEMOGLOBIN [id number] 10:07:00 Test Item Value Reference Range Comments HEMOGLOBIN A1C (BEAKER) (test epql=010) 10.2 % 4.3-6.1 [id number] 09:05:00 Test Item Value Reference Range Comments FERRITIN (BEAKER) (test tyqp=719) 195 ng/mL 5-275 POCT-GLUCOSE [id number] 08:37:00 Test Item Value Reference Range Comments POC-GLUCOSE METER (BEAKER) 202 mg/dL 70-110 : TESTED AT [address] (test hrmj=6037) [facility], [address]: Margin Analyst/Progress Man DJ=[id number] for CLIFF MCDONNELL CALCIUM, [id number] 06:55:00 Test Item Value Reference Range Comments CALCIUM IONIZED (BEAKER) (test nrfq=573) 1.11 mmol/L 1.12-1.27 PH, BLOOD (BEAKER) (test czbe=8332) 7.41 IRON, TIBC, % SAT. (WITHOUT FERRITIN)2018-12-22 06:37:00 Test Item Value Reference Range Comments IRON (BEAKER) (test wmfj=622) 85.0 ug/dL 40.0-160.0 TOTAL IRON BINDING CAPACITY (BEAKER) (test 226 ug/dL 250-450 wlop=000) IRON % SATURATION (2) (BEAKER) (test ebtq=6551) 38 % 20-55 TROPONIN [id number] 05:40:00 Test Item Value Reference Range Comments TROPONIN I (BEAKER) (test gfzz=226) 1.32 ng/mL 0.00-0.03 Troponin I (TnI) levels [...] acute neurological disease, and persistent tachyarrhythmia.COMPREHENSIVE METABOLIC [id number] 05:39:00 Test Item Value Reference Range Comments TOTAL PROTEIN (BEAKER) 6.2 gm/dL 6.0-8.3 (test fmib=775) ALBUMIN (BEAKER) (test 3.4 g/dL 3.5-5.0 gbug=3704) ALKALINE PHOSPHATASE 81 U/L 40-150 (BEAKER) (test qrno=036) BILIRUBIN TOTAL (BEAKER) 0.6 mg/dL 0.2-1.2 (test xfgw=455) SODIUM (BEAKER) (test 135 meq/L 136-145 yiyw=191) POTASSIUM (BEAKER) (test 3.9 meq/L 3.5-5.1 gvkj=120) CHLORIDE (BEAKER) (test 97 meq/L 98-107 xjzy=146) CO2 (BEAKER) (test 30 meq/L 22-29 vzvs=386) BLOOD UREA NITROGEN 77 mg/dL 7-21 (BEAKER) (test tyjc=389) CREATININE (BEAKER) (test 3.61 mg/dL 0.57-1.25 saje=228) GLUCOSE RANDOM (BEAKER) 156 mg/dL 70-105 (test wpxg=131) CALCIUM (BEAKER) (test 9.0 mg/dL 8.4-10.2 fdxr=733) AST (SGOT) (BEAKER) (test 14 U/L 5-34 kwdk=514) ALT (SGPT) (BEAKER) (test 6 U/L 6-55 hluw=891) EGFR (BEAKER) (test 12 mL/min/1.73 sq m ESTIMATED GFR IS NOT ttlt=4559) ACCURATE CREATININE CLEARANCE IN PREDICTING GLOMERULAR FILTRATION RATE. ESTIMATED GFR IS NOT APPLICABLE FOR DIALYSIS PATIENTS. B-TYPE NATRIURETIC FACTOR (BNP)2018-12-22 05:33:00 Test Item Value Reference Range Comments B-TYPE NATRIURETIC PEPTIDE (BEAKER) (test 221 pg/mL 0-100 hyot=317) [id number] 05:32:00 Test Item Value Reference Range Comments PHOSPHORUS (BEAKER) (test wfzm=812) 4.8 mg/dL 2.3-4.7 [id number] 05:32:00 Test Item Value Reference Range Comments MAGNESIUM (BEAKER) (test tdfu=228) 2.0 mg/dL 1.6-2.6 [id number] 05:19:00 Test Item Value Reference Range Comments PARTIAL THROMBOPLASTIN TIME (BEAKER) (test 92.9 seconds 22.5-36.0 pzqn=613) RETICULOCYTE [id number] 05:11:00 Test Item Value Reference Range Comments RETICULOCYTE COUNT PCT (BEAKER) (test vgyo=540) 2.0 % 0.5-1.7 CBC W/PLT COUNT & AUTO [id number] 05:11:00 Test Item Value Reference Range Comments WHITE BLOOD CELL COUNT (BEAKER) (test eolm=053) 7.4 K/ L 3.5-10.5 RED BLOOD CELL COUNT (BEAKER) (test wdqa=628) 3.42 M/ L 3.93-5.22 HEMOGLOBIN (BEAKER) (test ufrs=334) 10.1 GM/DL 11.2-15.7 HEMATOCRIT (BEAKER) (test uqdu=445) 31.4 % 34.1-44.9 MEAN CORPUSCULAR VOLUME (BEAKER) (test anep=198) 91.8 fL 79.4-94.8 MEAN CORPUSCULAR HEMOGLOBIN (BEAKER) (test 29.5 pg 25.6-32.2 begi=770) MEAN CORPUSCULAR HEMOGLOBIN CONC (BEAKER) (test 32.2 GM/DL 32.2-35.5 hazm=388) RED CELL DISTRIBUTION WIDTH (BEAKER) (test 15.9 % 11.7-14.4 oeap=855) PLATELET COUNT (BEAKER) (test fhyz=761) 192 K/CU MM 150-450 MEAN PLATELET VOLUME (BEAKER) (test ltmr=891) 10.5 fL 9.4-12.3 NUCLEATED RED BLOOD CELLS (BEAKER) (test 0 /100 WBC 0-0 nvcc=362) NEUTROPHILS RELATIVE PERCENT (BEAKER) (test 55 % loeh=676) LYMPHOCYTES RELATIVE PERCENT (BEAKER) (test 26 % jtau=296) MONOCYTES RELATIVE PERCENT (BEAKER) (test 12 % dvfu=972) EOSINOPHILS RELATIVE PERCENT (BEAKER) (test 7 % yfqx=162) BASOPHILS RELATIVE PERCENT (BEAKER) (test 1 % fmjp=389) NEUTROPHILS ABSOLUTE COUNT (BEAKER) (test 4.05 K/ L 1.56-6.13 tryz=043) LYMPHOCYTES ABSOLUTE COUNT (BEAKER) (test 1.89 K/ L 1.18-3.74 xocc=955) MONOCYTES ABSOLUTE COUNT (BEAKER) (test 0.86 K/ L 0.24-0.36 trao=495) EOSINOPHILS ABSOLUTE COUNT (BEAKER) (test 0.49 K/ L 0.04-0.36 cnki=356) BASOPHILS ABSOLUTE COUNT (BEAKER) (test 0.04 K/ L 0.01-0.08 gbxf=805) IMMATURE GRANULOCYTES-RELATIVE PERCENT (BEAKER) 1 % 0-1 (test flhw=1263) U/S, RENAL, [id number] 01:46:00Reason for exam:->AKIShould this be performed at [...] Verified Date/Time: 12/22/2018 01:46: 35 POCT -GLUCOSE [id number] 22:07:00 Test Item Value Reference Range Comments POC-GLUCOSE METER (BEAKER) 105 mg/dL 70-110 : TESTED AT [address] (test doqt=7576) [facility], [address]: Margin Analyst/Progress Man BO=[id number] for Iza Thurman [id number] 20:19:00 Test Item Value Reference Range Comments PARTIAL THROMBOPLASTIN TIME (BEAKER) (test 75.7 seconds 22.5-36.0 pdbj=193) POCT-GLUCOSE [id number] 17:42:00 Test Item Value Reference Range Comments POC-GLUCOSE METER (BEAKER) 305 mg/dL 70-110 : TESTED AT [address] (test fnbb=5057) [facility], [address]: Margin Analyst/Progress Man SO=[id number] for CLIFF MCDONNELL URINALYSIS W/ [id number] 14:46:00 Test Item Value Reference Range Comments COLOR (BEAKER) (test zpdq=724) Yellow CLARITY (BEAKER) (test vcqq=435) Clear SPECIFIC GRAVITY UA (BEAKER) (test aaez=006) 1.015 1.001-1.035 PH UA (BEAKER) (test ucvr=924) 5.0 5.0-8.0 PROTEIN UA (BEAKER) (test dusf=417) 10 mg/dL Negative GLUCOSE UA (BEAKER) (test kscl=517) 30 mg/dL Negative KETONES UA (BEAKER) (test ayqj=080) Negative Negative BILIRUBIN UA (BEAKER) (test jjxe=475) Negative Negative BLOOD UA (BEAKER) (test dzuq=953) Negative Negative NITRITE UA (BEAKER) (test gesp=053) Negative Negative LEUKOCYTE ESTERASE UA (BEAKER) (test pmye=945) Small Negative UROBILINOGEN UA (BEAKER) (test xwvl=306) 0.2 mg/dL 0.2-1.0 RBC UA (BEAKER) (test gsdt=410) 1 /HPF WBC UA (BEAKER) (test jkvd=214) 3 /HPF SQUAMOUS EPITHELIAL (BEAKER) (test mqcy=756) 1 /HPF HYALINE CASTS (BEAKER) (test zofi=604) 7 /LPF SOURCE(BEAKER) (test pgdk=6894) CREATININE, RANDOM [id number] 14:45:00 Test Item Value Reference Range Comments CREATININE URINE (BEAKER) (test dkbz=460) 123.0 mg/dL Reference Range: No [id number] 14:24:00 Test Item Value Reference Range Comments PARTIAL THROMBOPLASTIN TIME (BEAKER) (test 67.3 seconds 22.5-36.0 llbd=689) PROTEIN, RANDOM [id number] 14:23:00 Test Item Value Reference Range Comments PROTEIN, URINE (BEAKER) (test ekxe=9350) 20 mg/dL 0-14 SODIUM, RANDOM [id number] 14:23:00 Test Item Value Reference Range Comments SODIUM URINE (BEAKER) (test gcyk=915) 26 meq/L Reference Range: No NormalsTROPONIN [id number] 12:25:00 Test Item Value Reference Range Comments TROPONIN I (BEAKER) (test ghir=973) 2.12 ng/mL 0.00-0.03 Troponin I (TnI) levels [...] acidosis, acute neurological disease, and persistent tachyarrhythmia.POCT-GLUCOSE [id number] 10:12:00 Test Item Value Reference Range Comments POC-GLUCOSE METER (BEAKER) 177 mg/dL 70-110 : TESTED AT [facility] [address] (test niap=3629) [facility], [id number]: Margin Analyst/Progress Man [id number] for CLIFF MCDONNELL PT/[id number] 07:55:00 Test Item Value Reference Range Comments PROTIME (BEAKER) (test vlom=382) 14.1 seconds 11.9-14.2 INR (BEAKER) (test onhl=453) 1.2 <=5.9 PARTIAL THROMBOPLASTIN TIME (BEAKER) (test 55.3 seconds 22.5-36.0 kpxo=991) Effective 07/18/2018: PT Reference Range ChangeNew: 11.9-14.2 Previous: 11.7- 14.7RECOMMENDED COUMADIN/WARFARIN INR THERAPY RANGESSTANDARD DOSE: 2.0-3.0 Includes: PROPHYLAXIS for venous thrombosis, systemic embolization; TREATMENT for venous thrombosis and/or pulmonary embolus.HIGH RISK: Target INR is2.5-3.5 for patients wiht mechanical heart valves.[id number] 05:00:00 Test Item Value Reference Range Comments PARTIAL THROMBOPLASTIN TIME (BEAKER) (test 132.7 seconds 22.5-36.0 pfok=079) 6 hours after starting heparin infusion and as indicated per sliding scaleTROPONIN [id number] 04:38:00 Test Item Value Reference Range Comments TROPONIN I (BEAKER) (test yuvg=646) 2.37 ng/mL 0.00-0.03 Troponin I (TnI) levels [...] acute neurological disease, and persistent tachyarrhythmia.BASIC METABOLIC [id number] 04:37:00 Test Item Value Reference Range Comments SODIUM (BEAKER) (test 139 meq/L 136-145 fnta=511) POTASSIUM (BEAKER) (test 3.2 meq/L 3.5-5.1 zmyx=402) CHLORIDE (BEAKER) (test 98 meq/L 98-107 pxdd=783) CO2 (BEAKER) (test 33 meq/L 22-29 kfmp=704) BLOOD UREA NITROGEN 63 mg/dL 7-21 (BEAKER) (test owje=831) CREATININE (BEAKER) (test 3.13 mg/dL 0.57-1.25 xbla=559) GLUCOSE RANDOM (BEAKER) 161 mg/dL 70-105 (test kcbv=264) CALCIUM (BEAKER) (test 9.4 mg/dL 8.4-10.2 noth=832) EGFR (BEAKER) (test 14 mL/min/1.73 sq m ESTIMATED GFR IS NOT kmct=9770) ACCURATE CREATININE CLEARANCE IN PREDICTING GLOMERULAR FILTRATION RATE. ESTIMATED GFR IS NOT APPLICABLE FOR DIALYSIS PATIENTS. CBC (HEMOGRAM ONLY)2018-12-21 04:09:00 Test Item Value Reference Range Comments WHITE BLOOD CELL COUNT (BEAKER) (test mimu=274) 7.1 K/ L 3.5-10.5 RED BLOOD CELL COUNT (BEAKER) (test agng=470) 3.62 M/ L 3.93-5.22 HEMOGLOBIN (BEAKER) (test vwqt=162) 10.9 GM/DL 11.2-15.7 HEMATOCRIT (BEAKER) (test glkb=630) 33.3 % 34.1-44.9 MEAN CORPUSCULAR VOLUME (BEAKER) (test chyy=569) 92.0 fL 79.4-94.8 MEAN CORPUSCULAR HEMOGLOBIN (BEAKER) (test 30.1 pg 25.6-32.2 fzjo=513) MEAN CORPUSCULAR HEMOGLOBIN CONC (BEAKER) (test 32.7 GM/DL 32.2-35.5 irql=691) RED CELL DISTRIBUTION WIDTH (BEAKER) (test 15.8 % 11.7-14.4 wvwg=478) PLATELET COUNT (BEAKER) (test eavw=108) 188 K/CU MM 150-450 MEAN PLATELET VOLUME (BEAKER) (test zrac=366) 10.2 fL 9.4-12.3 NUCLEATED RED BLOOD CELLS (BEAKER) (test 0 /100 WBC 0-0 ntau=863) TROPONIN [id number] 01:13:00 Test Item Value Reference Range Comments TROPONIN I (BEAKER) (test psrl=652) 2.09 ng/mL 0.00-0.03 Troponin I (TnI) levels [...] acidosis, acute neurological disease, and persistent tachyarrhythmia.POCT-GLUCOSE [id number] 00:48:00 Test Item Value Reference Range Comments POC-GLUCOSE METER (salgomedAKER) 226 mg/dL 70-110 : TESTED AT [facility] [address] (test tdlf=3870) [facility], [id number]: Margin Analyst/Progress Man AN=[id number] for ELAYNE BISHOP, CHEST, 1 VIEW, NON [id number] 21:25:00Reason for exam:->chest painShould this be performed [...] proximal humeral heads are redemonstrated. Signed : i[facility]lson Val[place] [facility] [facility] Verified Date/Time:12/20/2018 21:25:44 TROPONIN [id number] 21:11:00 Test Item Value Reference Range Comments TROPONIN I (BEAKER) (test buea=017) 1.33 ng/mL 0.00-0.03 Troponin I (TnI) levels [...] NATRIURETIC PEPTIDE (BEAKER) (test 1084 pg/mL 0-100 bbfx=400) COMPREHENSIVE METABOLIC [id number] 21:05:00 Test Item Value Reference Range Comments TOTAL PROTEIN (BEAKER) 6.5 gm/dL 6.0-8.3 (test rlnm=731) ALBUMIN (BEAKER) (test 3.6 g/dL 3.5-5.0 qnlt=3779) ALKALINE PHOSPHATASE 120 U/L 40-150 (BEAKER) (test mfdf=641) BILIRUBIN TOTAL (BEAKER) 0.5 mg/dL 0.2-1.2 (test csrv=391) SODIUM (BEAKER) (test 137 meq/L 136-145 qwya=359) POTASSIUM (BEAKER) (test 3.3 meq/L 3.5-5.1 xlza=929) CHLORIDE (BEAKER) (test 96 meq/L 98-107 rbhi=639) CO2 (BEAKER) (test 32 meq/L 22-29 ymjp=824) BLOOD UREA NITROGEN 60 mg/dL 7-21 (BEAKER) (test bcav=675) CREATININE (BEAKER) (test 2.83 mg/dL 0.57-1.25 rhfq=662) GLUCOSE RANDOM (BEAKER) 234 mg/dL 70-105 (test tsax=130) CALCIUM (BEAKER) (test 9.3 mg/dL 8.4-10.2 ofdb=109) AST (SGOT) (BEAKER) (test 14 U/L 5-34 vspi=023) ALT (SGPT) (BEAKER) (test 7 U/L 6-55 fjuo=005) EGFR (BEAKER) (test 16 mL/min/1.73 sq m ESTIMATED GFR IS NOT tkid=7095) ACCURATE CREATININE CLEARANCE IN PREDICTING GLOMERULAR FILTRATION RATE. ESTIMATED GFR IS NOT APPLICABLE FOR DIALYSIS PATIENTS. [id number] 21:02:00 Test Item Value Reference Range Comments MAGNESIUM (BEAKER) (test qusi=014) 2.0 mg/dL 1.6-2.6 [id number] 20:58:00 Test Item Value Reference Range Comments PROTIME (BEAKER) (test jwqr=872) 13.3 seconds 11.9-14.2 INR (BEAKER) (test gssp=262) 1.1 <=5.9 PARTIAL THROMBOPLASTIN TIME (BEAKER) (test 26.3 seconds 22.5-36.0 rumy=315) Effective 07/18/2018: PT Reference Range ChangeNew: 11.9-14.2 Previous: 11.7- 14.7RECOMMENDED COUMADIN/WARFARIN INR THERAPY RANGESSTANDARD DOSE: 2.0-3.0 Includes: PROPHYLAXIS for venous thrombosis, systemic embolization; TREATMENT for venous thrombosis and/or pulmonary embolus.HIGH RISK: Target INR is2.5-3.5 for patients wiht mechanical heart valves.CBC W/PLT COUNT & AUTO [id number] 20:46:00 Test Item Value Reference Range Comments WHITE BLOOD CELL COUNT (BEAKER) (test adyy=838) 7.7 K/ L 3.5-10.5 RED BLOOD CELL COUNT (BEAKER) (test dnhz=078) 3.86 M/ L 3.93-5.22 HEMOGLOBIN (BEAKER) (test cyub=392) 11.5 GM/DL 11.2-15.7 HEMATOCRIT (BEAKER) (test ahwi=887) 35.0 % 34.1-44.9 MEAN CORPUSCULAR VOLUME (BEAKER) (test zefq=378) 90.7 fL 79.4-94.8 MEAN CORPUSCULAR HEMOGLOBIN (BEAKER) (test 29.8 pg 25.6-32.2 hwmw=654) MEAN CORPUSCULAR HEMOGLOBIN CONC (BEAKER) (test 32.9 GM/DL 32.2-35.5 slsw=857) RED CELL DISTRIBUTION WIDTH (BEAKER) (test 15.5 % 11.7-14.4 fxng=121) PLATELET COUNT (BEAKER) (test hzia=512) 199 K/CU MM 150-450 MEAN PLATELET VOLUME (BEAKER) (test febj=783) 9.8 fL 9.4-12.3 NUCLEATED RED BLOOD CELLS (BEAKER) (test 0 /100 WBC 0-0 vxub=851) NEUTROPHILS RELATIVE PERCENT (BEAKER) (test 63 % azgu=711) LYMPHOCYTES RELATIVE PERCENT (BEAKER) (test 21 % wryi=264) MONOCYTES RELATIVE PERCENT (BEAKER) (test 9 % aznd=484) EOSINOPHILS RELATIVE PERCENT (BEAKER) (test 5 % rwsu=622) BASOPHILS RELATIVE PERCENT (BEAKER) (test 1 % bgse=455) NEUTROPHILS ABSOLUTE COUNT (BEAKER) (test 4.83 K/ L 1.56-6.13 qcmz=250) LYMPHOCYTES ABSOLUTE COUNT (BEAKER) (test 1.63 K/ L 1.18-3.74 dhce=408) MONOCYTES ABSOLUTE COUNT (BEAKER) (test 0.72 K/ L 0.24-0.36 bypk=484) EOSINOPHILS ABSOLUTE COUNT (BEAKER) (test 0.41 K/ L 0.04-0.36 bonh=029) BASOPHILS ABSOLUTE COUNT (BEAKER) (test 0.04 K/ L 0.01-0.08 vsgy=585) IMMATURE GRANULOCYTES-RELATIVE PERCENT (BEAKER) 1 % 0-1 (test pcfg=0207) POCT-GLUCOSE [id number] 11:57:00 Test Item Value Reference Range Comments POC-GLUCOSE METER (BEAKER) 377 mg/dL 70-110 TESTED AT [address] (test yulm=0693) [place] [id number] POCT-GLUCOSE [id number] 09:11:00 Test Item Value Reference Range Comments POC-GLUCOSE METER (BEAKER) 95 mg/dL 70-110 TESTED AT [address] (test nqhb=8531) [facility] [address] POCT-GLUCOSE [id number] 06:53:00 Test Item Value Reference Range Comments POC-GLUCOSE METER (BEAKER) 288 mg/dL 70-110 TESTED AT [address] (test kkuu=9334) [facility] [address] COMPREHENSIVE METABOLIC [id number] 01:54:00 Test Item Value Reference Range Comments TOTAL PROTEIN (BEAKER) 6.1 gm/dL 6.0-8.3 Specimen slightly (test annf=049) hemolyzed ALBUMIN (BEAKER) (test 3.3 g/dL 3.5-5.0 Specimen slightly ufuf=8321) hemolyzed ALKALINE PHOSPHATASE 91 U/L 40-150 (BEAKER) (test xnvl=580) BILIRUBIN TOTAL (BEAKER) 0.5 mg/dL 0.2-1.2 Specimen slightly (test etry=546) hemolyzed SODIUM (BEAKER) (test 134 meq/L 136-145 xvnp=655) POTASSIUM (BEAKER) (test 4.0 meq/L 3.5-5.1 Specimen slightly xmku=428) hemolyzed CHLORIDE (BEAKER) (test 101 meq/L 98-107 fllo=885) CO2 (BEAKER) (test 21 meq/L 22-29 mtks=064) BLOOD UREA NITROGEN 65 mg/dL 7-21 (BEAKER) (test hyyz=181) CREATININE (BEAKER) (test 2.75 mg/dL 0.57-1.25 Specimen slightly ngad=902) hemolyzed GLUCOSE RANDOM (BEAKER) 434 mg/dL 70-105 (test lcqm=775) CALCIUM (BEAKER) (test 8.4 mg/dL 8.4-10.2 qwuz=076) AST (SGOT) (BEAKER) (test 18 U/L 5-34 Specimen slightly pgwu=930) hemolyzed ALT (SGPT) (BEAKER) (test 13 U/L 6-55 Specimen slightly uujb=263) hemolyzed EGFR (BEAKER) (test 17 mL/min/1.73 sq m ESTIMATED GFR IS NOT nzty=1903) ACCURATE CREATININE CLEARANCE IN PREDICTING GLOMERULAR FILTRATION RATE. ESTIMATED GFR IS NOT APPLICABLE FOR DIALYSIS PATIENTS. [id number] 01:49:00 Test Item Value Reference Range Comments ACTIVATED CLOTTING TIME 142 sec Reference Range: 74-137 (BEAKER) (test ydzd=018) seconds, Baseline/TESTED AT [address] [address] B-TYPE NATRIURETIC FACTOR (BNP)2018-11-13 01:42:00 Test Item Value Reference Range Comments B-TYPE NATRIURETIC PEPTIDE (BEAKER) (test 1151 pg/mL 0-100 svvs=664) URINALYSIS W/ [id number] 01:40:00 Test Item Value Reference Range Comments COLOR (BEAKER) (test shey=265) Light Yellow CLARITY (BEAKER) (test ivob=794) Clear SPECIFIC GRAVITY UA (BEAKER) (test vtcz=998) 1.023 1.001-1.035 PH UA (BEAKER) (test qxgw=985) 5.5 5.0-8.0 PROTEIN UA (BEAKER) (test rwrg=393) 20 mg/dL Negative GLUCOSE UA (BEAKER) (test idwq=033) >1000 mg/dL Negative KETONES UA (BEAKER) (test fmju=209) 10 mg/dL Negative BILIRUBIN UA (BEAKER) (test vkay=832) Negative Negative BLOOD UA (BEAKER) (test xfzp=600) Small Negative NITRITE UA (BEAKER) (test tltn=465) Negative Negative LEUKOCYTE ESTERASE UA (BEAKER) (test juaz=925) Negative Negative UROBILINOGEN UA (BEAKER) (test zdhl=077) 0.2 mg/dL 0.2-1.0 RBC UA (BEAKER) (test mbkf=916) 2 /HPF WBC UA (BEAKER) (test vsis=069) 1 /HPF BACTERIA (BEAKER) (test kcul=933) Rare SQUAMOUS EPITHELIAL (BEAKER) (test ajam=230) 2 /HPF SOURCE(BEAKER) (test hmfn=3631) [id number] 01:36:00 Test Item Value Reference Range Comments MAGNESIUM (BEAKER) (test 2.0 mg/dL 1.6-2.6 Specimen slightly hemolyzed zhhc=621) [id number] 01:36:00 Test Item Value Reference Range Comments PHOSPHORUS (BEAKER) (test 4.4 mg/dL 2.3-4.7 Specimen slightly hemolyzed vuxa=794) CBC W/PLT COUNT & AUTO [id number] 01:24:00 Test Item Value Reference Range Comments WHITE BLOOD CELL COUNT (BEAKER) (test hgka=375) 7.4 K/ L 3.5-10.5 RED BLOOD CELL COUNT (BEAKER) (test ptoa=822) 4.21 M/ L 3.93-5.22 HEMOGLOBIN (BEAKER) (test wthd=870) 12.4 GM/DL 11.2-15.7 HEMATOCRIT (BEAKER) (test eqgt=737) 38.7 % 34.1-44.9 MEAN CORPUSCULAR VOLUME (BEAKER) (test vuzc=126) 91.9 fL 79.4-94.8 MEAN CORPUSCULAR HEMOGLOBIN (BEAKER) (test 29.5 pg 25.6-32.2 xdin=246) MEAN CORPUSCULAR HEMOGLOBIN CONC (BEAKER) (test 32.0 GM/DL 32.2-35.5 qutv=380) RED CELL DISTRIBUTION WIDTH (BEAKER) (test 14.6 % 11.7-14.4 hent=311) PLATELET COUNT (BEAKER) (test ilmg=177) 174 K/CU MM 150-450 MEAN PLATELET VOLUME (BEAKER) (test vnaj=871) 11.0 fL 9.4-12.3 NUCLEATED RED BLOOD CELLS (BEAKER) (test 0 /100 WBC 0-0 hsbv=628) NEUTROPHILS RELATIVE PERCENT (BEAKER) (test 87 % hvra=986) LYMPHOCYTES RELATIVE PERCENT (BEAKER) (test 12 % omij=579) MONOCYTES RELATIVE PERCENT (BEAKER) (test 1 % zwlp=358) EOSINOPHILS RELATIVE PERCENT (BEAKER) (test 0 % kuuq=430) BASOPHILS RELATIVE PERCENT (BEAKER) (test 0 % dmrr=950) NEUTROPHILS ABSOLUTE COUNT (BEAKER) (test 6.42 K/ L 1.56-6.13 yche=470) LYMPHOCYTES ABSOLUTE COUNT (BEAKER) (test 0.85 K/ L 1.18-3.74 rxyr=803) MONOCYTES ABSOLUTE COUNT (BEAKER) (test 0.04 K/ L 0.24-0.36 zafl=731) EOSINOPHILS ABSOLUTE COUNT (BEAKER) (test 0.00 K/ L 0.04-0.36 mkim=723) BASOPHILS ABSOLUTE COUNT (BEAKER) (test 0.01 K/ L 0.01-0.08 aiey=567) IMMATURE GRANULOCYTES-RELATIVE PERCENT (BEAKER) 1 % 0-1 (test ydpw=9820) CALCIUM, [id number] 01:16:00 Test Item Value Reference Range Comments CALCIUM IONIZED (BEAKER) (test kimo=260) 1.10 mmol/L 1.12-1.27 PH, BLOOD (BEAKER) (test pebs=0426) 7.32 [id number] 23:34:00 Test Item Value Reference Range Comments ACTIVATED CLOTTING TIME 164 sec Reference Range: 74-137 (BEAKER) (test hytu=834) seconds, Baseline/TESTED AT [place] [address] [id number] 21:52:00 Test Item Value Reference Range Comments ACTIVATED CLOTTING TIME 191 sec Reference Range: 74-137 (BEAKER) (test xdaw=123) seconds, Baseline/TESTED AT [place] [address] POCT-GLUCOSE [id number] 21:33:00 Test Item Value Reference Range Comments POC-GLUCOSE METER (BEAKER) 294 mg/dL 70-110 TESTED AT [address] (test dsqf=6400) [place] [address] C. DIFFICILE GDH [id number] 20:08:00 Test Item Value Reference Range Comments CDT TOXIN (test Negative Negative ourt=[id number]) CDT GDH ANTIGEN (test Positive Negative C. difficile present but toxin kkkf=[id number]) not detected. Indicates colonization with non-toxigenic strain [...] of kit performance was done by the [facility] Microbiology [facility] prior to clinical use.[id number] 17:58:00 Test Item Value Reference Range Comments ACTIVATED CLOTTING TIME 290 sec Reference Range: 74-137 (BEAKER) (test ezhi=013) seconds, Baseline/TESTED AT [place] [address] [id number] 16:57:00 Test Item Value Reference Range Comments ACTIVATED CLOTTING TIME 263 sec Reference Range: 74-137 (BEAKER) (test cpey=782) seconds, Baseline/TESTED AT [place] [address] [id number] 16:20:00 Test Item Value Reference Range Comments ACTIVATED CLOTTING TIME 252 sec Reference Range: 74-137 (BEAKER) (test wtlq=600) seconds, Baseline/TESTED AT [place] [address] PET, CARDIAC PERFUSION MULTIPLE STUDIES, REST AND [id number] 15:26: 00Reason for exam:->eval chest pain, ischemiaFINAL REPORT PROCEDURE: MYOCARDIAL PERFUSION PET IMAGING (Rest/Stress)CPT CODE: [id number] INDICATION: Evaluate extent of known CAD, chest [...] rest.Symptoms: Chest discomfort, nausea, fatigue (Treatment was [id number] IV).Perfusion: There is an absence of perfusionin [...] is no prior study for comparison. Signed: Marcus Sultana MDReport Verified Date/Time: 11/12/2018 15:26:40 Reading Location: [address] Reading Room [id number] 10:22:00 Test Item Value Reference Range Comments PARTIAL THROMBOPLASTIN TIME (BEAKER) (test 90.3 seconds 22.5-36.0 vbvh=407) HEMOGLOBIN [id number] 09:39:00 Test Item Value Reference Range Comments HEMOGLOBIN A1C (BEAKER) (test fmlt=905) 12.0 % 4.3-6.1 POCT-GLUCOSE [id number] 08:37:00 Test Item Value Reference Range Comments POC-GLUCOSE METER (BEAKER) 281 mg/dL 70-110 TESTED AT [facility] [address] [facility] (test cahv=2473) [place] [address] [id number] 05:54:00 Test Item Value Reference Range Comments PARTIAL THROMBOPLASTIN TIME (BEAKER) (test 135.4 seconds 22.5-36.0 kovy=678) CALCIUM, [id number] 05:31:00 Test Item Value Reference Range Comments CALCIUM IONIZED (BEAKER) (test bvqc=276) 1.10 mmol/L 1.12-1.27 PH, BLOOD (BEAKER) (test ryxk=2423) 7.39 COMPREHENSIVE METABOLIC [id number] 04:56:00 Test Item Value Reference Range Comments TOTAL PROTEIN (BEAKER) 6.2 gm/dL 6.0-8.3 Specimen slightly (test jrto=429) hemolyzed ALBUMIN (BEAKER) (test 3.3 g/dL 3.5-5.0 Specimen slightly lobr=6214) hemolyzed ALKALINE PHOSPHATASE 98 U/L 40-150 (BEAKER) (test kjme=876) BILIRUBIN TOTAL (BEAKER) 0.5 mg/dL 0.2-1.2 Specimen slightly (test xgww=421) hemolyzed SODIUM (BEAKER) (test 134 meq/L 136-145 sdfe=220) POTASSIUM (BEAKER) (test 3.4 meq/L 3.5-5.1 Specimen slightly ornz=578) hemolyzed CHLORIDE (BEAKER) (test 97 meq/L 98-107 yklt=951) CO2 (BEAKER) (test 25 meq/L 22-29 dgtc=120) BLOOD UREA NITROGEN 80 mg/dL 7-21 (BEAKER) (test gljx=455) CREATININE (BEAKER) (test 3.15 mg/dL 0.57-1.25 Specimen slightly ngke=395) hemolyzed GLUCOSE RANDOM (BEAKER) 221 mg/dL 70-105 (test zzni=240) CALCIUM (BEAKER) (test 8.9 mg/dL 8.4-10.2 unhl=261) AST (SGOT) (BEAKER) (test 17 U/L 5-34 Specimen slightly kjfj=265) hemolyzed ALT (SGPT) (BEAKER) (test 10 U/L 6-55 Specimen slightly ayqq=429) hemolyzed EGFR (BEAKER) (test 14 mL/min/1.73 sq m ESTIMATED GFR IS NOT tnfr=4982) ACCURATE CREATININE CLEARANCE IN PREDICTING GLOMERULAR FILTRATION RATE. ESTIMATED GFR IS NOT APPLICABLE FOR DIALYSIS PATIENTS. [id number] 04:52:00 Test Item Value Reference Range Comments MAGNESIUM (BEAKER) (test 2.0 mg/dL 1.6-2.6 Specimen slightly hemolyzed sscj=241) [id number] 04:52:00 Test Item Value Reference Range Comments PHOSPHORUS (BEAKER) (test 3.5 mg/dL 2.3-4.7 Specimen slightly hemolyzed kyzx=726) LIPID [id number] 04:52:00 Test Item Value Reference Range Comments TRIGLYCERIDES (BEAKER) (test 133 mg/dL Specimen slightly hemolyzed wlkb=023) CHOLESTEROL (BEAKER) (test 117 mg/dL Specimen slightly hemolyzed qgvo=852) HDL CHOLESTEROL (BEAKER) (test 33 mg/dL svue=009) LDL CHOLESTEROL CALCULATED 57 mg/dL (BEAKER) (test rzzu=200) Triglyceride Reference Range: Low Risk <150 Borderline 150- 199 High Risk 200-499 Very High Risk >=500Cholesterol Reference Range: Low Risk <200 Borderline 200-239 High Risk > 240HDL Cholesterol Reference Range: Low Risk >=60 High Risk <40LDL Cholesterol Reference Range: Optimal <100 Near Optimal 100-129 Borderline 130-159 High 160-189 Very High >=190CBC W/PLT COUNT & AUTO [id number] 04:33:00 Test Item Value Reference Range Comments WHITE BLOOD CELL COUNT (BEAKER) (test vrml=290) 8.2 K/ L 3.5-10.5 RED BLOOD CELL COUNT (BEAKER) (test xwks=336) 4.23 M/ L 3.93-5.22 HEMOGLOBIN (BEAKER) (test bvgl=552) 12.7 GM/DL 11.2-15.7 HEMATOCRIT (BEAKER) (test dmne=724) 38.3 % 34.1-44.9 MEAN CORPUSCULAR VOLUME (BEAKER) (test jkyu=666) 90.5 fL 79.4-94.8 MEAN CORPUSCULAR HEMOGLOBIN (BEAKER) (test 30.0 pg 25.6-32.2 zzvm=157) MEAN CORPUSCULAR HEMOGLOBIN CONC (BEAKER) (test 33.2 GM/DL 32.2-35.5 pfdj=328) RED CELL DISTRIBUTION WIDTH (BEAKER) (test 14.7 % 11.7-14.4 fiwa=813) PLATELET COUNT (BEAKER) (test sycg=991) 206 K/CU MM 150-450 MEAN PLATELET VOLUME (BEAKER) (test pvha=659) 11.0 fL 9.4-12.3 NUCLEATED RED BLOOD CELLS (BEAKER) (test 0 /100 WBC 0-0 bcea=798) NEUTROPHILS RELATIVE PERCENT (BEAKER) (test 60 % nvke=521) LYMPHOCYTES RELATIVE PERCENT (BEAKER) (test 29 % xldv=251) MONOCYTES RELATIVE PERCENT (BEAKER) (test 8 % kvcw=452) EOSINOPHILS RELATIVE PERCENT (BEAKER) (test 2 % lqml=745) BASOPHILS RELATIVE PERCENT (BEAKER) (test 0 % yqmw=475) NEUTROPHILS ABSOLUTE COUNT (BEAKER) (test 4.96 K/ L 1.56-6.13 tkbe=012) LYMPHOCYTES ABSOLUTE COUNT (BEAKER) (test 2.35 K/ L 1.18-3.74 zzyd=977) MONOCYTES ABSOLUTE COUNT (BEAKER) (test 0.65 K/ L 0.24-0.36 bifl=845) EOSINOPHILS ABSOLUTE COUNT (BEAKER) (test 0.18 K/ L 0.04-0.36 ygsv=478) BASOPHILS ABSOLUTE COUNT (BEAKER) (test 0.03 K/ L 0.01-0.08 viom=534) IMMATURE GRANULOCYTES-RELATIVE PERCENT (BEAKER) 0 % 0-1 (test ryej=2191) [id number] 22:22:00 Test Item Value Reference Range Comments PARTIAL THROMBOPLASTIN TIME (BEAKER) (test 86.6 seconds 22.5-36.0 ejgn=947) POCT-GLUCOSE [id number] 17:14:00 Test Item Value Reference Range Comments POC-GLUCOSE METER (BEAKER) 158 mg/dL 70-110 TESTED AT [address] (test gbtt=5299) [facility] [address] [id number] 15:48:00 Test Item Value Reference Range Comments PARTIAL THROMBOPLASTIN TIME (BEAKER) (test 64.4 seconds 22.5-36.0 ltne=362) POCT-GLUCOSE [id number] 12:41:00 Test Item Value Reference Range Comments POC-GLUCOSE METER (BEAKER) 275 mg/dL 70-110 TESTED AT [address] (test pfed=7222) [place] [address] RAD, CHEST, 1 VIEW, NON [id number] 09:33:00Reason for exam:->chest painShould this be performed at the bedside?->YesFINAL REPORT Comparison: 08/14/2018 TECHNIQUE: Single view of the chest FINDINGS: Trace bilateral pleural effusions. Lungs otherwise grossly clear. Cardiac silhouette is prominent. Aortic calcifications are seen. No acute skeletal abnormality. Signed: Terry Sauer Verified Date/Time: 11/11/2018 09:33: 09 Reading Location: [address] Transitional Reading Room TROPONIN [id number] 09:11: 00 Test Item Value Reference Range Comments TROPONIN I (BEAKER) (test xwjm=571) 0.38 ng/mL 0.00-0.03 Troponin I (TnI) levels [...] acidosis, acute neurological disease, and persistent tachyarrhythmia.POCT-GLUCOSE [id number] 08:57:00 Test Item Value Reference Range Comments POC-GLUCOSE METER (BEAKER) 321 mg/dL 70-110 Notified SOLITARIO BUENO/TESTED AT [facility] (test taaa=9796) [address] [place] [address] TROPONIN [id number] 08:29:00 Test Item Value Reference Range Comments TROPONIN I (BEAKER) (test fpuw=244) 0.60 ng/mL 0.00-0.03 Troponin I (TnI) levels [...] acute neurological disease, and persistent tachyarrhythmia.BASIC METABOLIC [id number] 08:26:00 Test Item Value Reference Range Comments SODIUM (BEAKER) (test 136 meq/L 136-145 jrfi=470) POTASSIUM (BEAKER) (test 3.8 meq/L 3.5-5.1 Specimen slightly mggm=121) hemolyzed CHLORIDE (BEAKER) (test 96 meq/L 98-107 wmau=898) CO2 (BEAKER) (test 30 meq/L 22-29 hogh=795) BLOOD UREA NITROGEN 70 mg/dL 7-21 (BEAKER) (test vzug=473) CREATININE (BEAKER) (test 3.15 mg/dL 0.57-1.25 Specimen slightly fibm=690) hemolyzed GLUCOSE RANDOM (BEAKER) 356 mg/dL 70-105 (test bgfw=290) CALCIUM (BEAKER) (test 9.5 mg/dL 8.4-10.2 zigr=844) EGFR (BEAKER) (test 14 mL/min/1.73 sq m ESTIMATED GFR IS NOT lhcr=3689) ACCURATE CREATININE CLEARANCE IN PREDICTING GLOMERULAR FILTRATION RATE. ESTIMATED GFR IS NOT APPLICABLE FOR DIALYSIS PATIENTS. [id number] 08:22:00 Test Item Value Reference Range Comments MAGNESIUM (BEAKER) (test 2.2 mg/dL 1.6-2.6 Specimen slightly hemolyzed uzbb=335) HEPATIC FUNCTION [id number] 08:22:00 Test Item Value Reference Range Comments TOTAL PROTEIN (BEAKER) (test 7.3 gm/dL 6.0-8.3 Specimen slightly hemolyzed xrcb=892) ALBUMIN (BEAKER) (test 3.9 g/dL 3.5-5.0 Specimen slightly hemolyzed mmer=9728) BILIRUBIN TOTAL (BEAKER) (test 0.5 mg/dL 0.2-1.2 Specimen slightly hemolyzed mczt=285) BILIRUBIN DIRECT (BEAKER) (test 0.2 mg/dL 0.1-0.5 Specimen slightly hemolyzed hzjk=153) ALKALINE PHOSPHATASE (BEAKER) 129 U/L 40-150 (test dfrf=301) AST (SGOT) (BEAKER) (test 18 U/L 5-34 Specimen slightly hemolyzed yamz=676) ALT (SGPT) (BEAKER) (test 11 U/L 6-55 Specimen slightly hemolyzed xfzb=710) B-TYPE NATRIURETIC FACTOR (BNP)2018-11-11 08:22:00 Test Item Value Reference Range Comments B-TYPE NATRIURETIC PEPTIDE (BEAKER) (test 344 pg/mL 0-100 ufkd=757) CBC W/PLT COUNT & AUTO [id number] 07:04:00 Test Item Value Reference Range Comments WHITE BLOOD CELL COUNT (BEAKER) (test kipj=413) 6.0 K/ L 3.5-10.5 RED BLOOD CELL COUNT (BEAKER) (test ltni=635) 4.74 M/ L 3.93-5.22 HEMOGLOBIN (BEAKER) (test rbrc=339) 14.0 GM/DL 11.2-15.7 HEMATOCRIT (BEAKER) (test tywp=944) 43.4 % 34.1-44.9 MEAN CORPUSCULAR VOLUME (BEAKER) (test kqxk=680) 91.6 fL 79.4-94.8 MEAN CORPUSCULAR HEMOGLOBIN (BEAKER) (test 29.5 pg 25.6-32.2 kwzd=144) MEAN CORPUSCULAR HEMOGLOBIN CONC (BEAKER) (test 32.3 GM/DL 32.2-35.5 izud=971) RED CELL DISTRIBUTION WIDTH (BEAKER) (test 14.6 % 11.7-14.4 ocit=764) PLATELET COUNT (BEAKER) (test wxxz=390) 202 K/CU MM 150-450 MEAN PLATELET VOLUME (BEAKER) (test fhcm=748) 11.3 fL 9.4-12.3 NUCLEATED RED BLOOD CELLS (BEAKER) (test 0 /100 WBC 0-0 aiwi=127) NEUTROPHILS RELATIVE PERCENT (BEAKER) (test 56 % lrms=780) LYMPHOCYTES RELATIVE PERCENT (BEAKER) (test 32 % dsdb=462) MONOCYTES RELATIVE PERCENT (BEAKER) (test 9 % pyck=001) EOSINOPHILS RELATIVE PERCENT (BEAKER) (test 3 % vris=181) BASOPHILS RELATIVE PERCENT (BEAKER) (test 0 % xwhf=289) NEUTROPHILS ABSOLUTE COUNT (BEAKER) (test 3.38 K/ L 1.56-6.13 lvxm=305) LYMPHOCYTES ABSOLUTE COUNT (BEAKER) (test 1.90 K/ L 1.18-3.74 hcql=982) MONOCYTES ABSOLUTE COUNT (BEAKER) (test 0.55 K/ L 0.24-0.36 maar=283) EOSINOPHILS ABSOLUTE COUNT (BEAKER) (test 0.15 K/ L 0.04-0.36 nwwz=048) BASOPHILS ABSOLUTE COUNT (BEAKER) (test 0.02 K/ L 0.01-0.08 apni=303) IMMATURE GRANULOCYTES-RELATIVE PERCENT (BEAKER) 1 % 0-1 (test utnk=3403) TSH/FREE T4 IF [id number] 06:39:00 Test Item Value Reference Range Comments THYROID STIMULATING HORMONE (BEAKER) (test 1.17 uIU/mL 0.35-4.94 agbw=111) [id number] 05:38:00 Test Item Value Reference Range Comments PROTIME (BEAKER) (test hlbs=572) 14.0 seconds 11.9-14.2 INR (BEAKER) (test wtmz=314) 1.1 <=5.9 PARTIAL THROMBOPLASTIN TIME (BEAKER) (test 37.2 seconds 22.5-36.0 smmm=164) Effective 07/18/2018: PT Reference Range ChangeNew: 11.9-14.2 Previous: 11.7- 14.7RECOMMENDED COUMADIN/WARFARIN INR THERAPY RANGESSTANDARD DOSE: 2.0-3.0 Includes: PROPHYLAXIS for venous thrombosis, systemic embolization; TREATMENT for venous thrombosis and/or pulmonary embolus.HIGH RISK: Target INR is2.5-3.5 for patients wiht mechanical heart valves.POCT-GLUCOSE [id number] 12:11:00 Test Item Value Reference Range Comments POC-GLUCOSE METER (BEAKER) 111 mg/dL 70-110 TESTED AT [address] (test jwxm=0160) [facility] [address] CBC W/PLT COUNT & AUTO [id number] 10:11:00 Test Item Value Reference Range Comments WHITE BLOOD CELL COUNT 4.7 K/ L 3.5-10.5 (BEAKER) (test cwsg=670) RED BLOOD CELL COUNT (BEAKER) 3.14 M/ L 3.93-5.22 (test ioqu=444) HEMOGLOBIN (BEAKER) (test 10.1 GM/DL 11.2-15.7 wgvb=267) HEMATOCRIT (BEAKER) (test 34.0 % 34.1-44.9 zccw=299) MEAN CORPUSCULAR VOLUME 108.3 fL 79.4-94.8 Discordant results compared (BEAKER) (test fhzi=136) to previous result; clinical correlation required. MEAN CORPUSCULAR HEMOGLOBIN 32.2 pg 25.6-32.2 (BEAKER) (test zzci=309) MEAN CORPUSCULAR HEMOGLOBIN 29.7 GM/DL 32.2-35.5 CONC (BEAKER) (test zomz=012) RED CELL DISTRIBUTION WIDTH 18.5 % 11.7-14.4 (BEAKER) (test hrdp=131) PLATELET COUNT (BEAKER) (test 186 K/CU MM 150-450 yipi=532) MEAN PLATELET VOLUME (BEAKER) 9.5 fL 9.4-12.3 (test jhtl=558) NUCLEATED RED BLOOD CELLS 0 /100 WBC 0-0 (BEAKER) (test lhvo=402) NEUTROPHILS RELATIVE PERCENT 67 % (BEAKER) (test ewuy=256) LYMPHOCYTES RELATIVE PERCENT 14 % (BEAKER) (test ezve=891) MONOCYTES RELATIVE PERCENT 14 % (BEAKER) (test bwmr=549) EOSINOPHILS RELATIVE PERCENT 3 % (BEAKER) (test kdul=944) BASOPHILS RELATIVE PERCENT 1 % (BEAKER) (test oqnb=067) NEUTROPHILS ABSOLUTE COUNT 3.16 K/ L 1.56-6.13 (BEAKER) (test nzra=216) LYMPHOCYTES ABSOLUTE COUNT 0.67 K/ L 1.18-3.74 (BEAKER) (test thtg=983) MONOCYTES ABSOLUTE COUNT 0.65 K/ L 0.24-0.36 (BEAKER) (test iyht=611) EOSINOPHILS ABSOLUTE COUNT 0.15 K/ L 0.04-0.36 (BEAKER) (test zzyj=809) BASOPHILS ABSOLUTE COUNT 0.03 K/ L 0.01-0.08 (BEAKER) (test ubnx=265) IMMATURE 1 % 0-1 GRANULOCYTES-RELATIVE PERCENT (BEAKER) (test llvc=3651) POCT-GLUCOSE [id number] 07:46:00 Test Item Value Reference Range Comments POC-GLUCOSE METER (BEAKER) 79 mg/dL 70-110 TESTED AT [address] (test ofkc=9647) [place] [address] BASIC METABOLIC [id number] 06:22:00 Test Item Value Reference Range Comments SODIUM (BEAKER) (test 136 meq/L 136-145 wddr=088) POTASSIUM (BEAKER) (test 4.0 meq/L 3.5-5.1 btkk=404) CHLORIDE (BEAKER) (test 100 meq/L 98-107 ngdi=141) CO2 (BEAKER) (test 26 meq/L 22-29 fygj=657) BLOOD UREA NITROGEN 55 mg/dL 7-21 (BEAKER) (test eiuk=542) CREATININE (BEAKER) (test 2.87 mg/dL 0.57-1.25 zubk=265) GLUCOSE RANDOM (BEAKER) 79 mg/dL 70-105 (test iyrn=411) CALCIUM (BEAKER) (test 8.6 mg/dL 8.4-10.2 qzcn=872) EGFR (BEAKER) (test 16 mL/min/1.73 sq m ESTIMATED GFR IS NOT iqzf=3653) ACCURATE CREATININE CLEARANCE IN PREDICTING GLOMERULAR FILTRATION RATE. ESTIMATED GFR IS NOT APPLICABLE FOR DIALYSIS PATIENTS. POCT-GLUCOSE [id number] 20:51:00 Test Item Value Reference Range Comments POC-GLUCOSE METER (BEAKER) 176 mg/dL 70-110 TESTED AT [address] (test ekgs=6728) [place] [address] POCT-GLUCOSE [id number] 18:25:00 Test Item Value Reference Range Comments POC-GLUCOSE METER (BEAKER) 84 mg/dL 70-110 TESTED AT [address] (test ifwx=3805) [place] [address] POCT-GLUCOSE [id number] 12:54:00 Test Item Value Reference Range Comments POC-GLUCOSE METER (BEAKER) 111 mg/dL 70-110 TESTED AT [address] (test fjpw=1436) [facility] [address] POCT-GLUCOSE [id number] 08:25:00 Test Item Value Reference Range Comments POC-GLUCOSE METER (BEAKER) 105 mg/dL 70-110 TESTED AT [address] (test zkaf=2948) [facility] [id number] BASIC METABOLIC [id number] 06:26:00 Test Item Value Reference Range Comments SODIUM (BEAKER) (test 137 meq/L 136-145 wgam=471) POTASSIUM (BEAKER) (test 3.9 meq/L 3.5-5.1 bmlt=852) CHLORIDE (BEAKER) (test 100 meq/L 98-107 oqwc=792) CO2 (BEAKER) (test 28 meq/L 22-29 yxfk=959) BLOOD UREA NITROGEN 53 mg/dL 7-21 (BEAKER) (test guyj=899) CREATININE (BEAKER) (test 3.07 mg/dL 0.57-1.25 smoj=448) GLUCOSE RANDOM (BEAKER) 71 mg/dL 70-105 (test dffm=274) CALCIUM (BEAKER) (test 8.6 mg/dL 8.4-10.2 bpbq=888) EGFR (BEAKER) (test 15 mL/min/1.73 sq m ESTIMATED GFR IS NOT kqaq=7413) ACCURATE CREATININE CLEARANCE IN PREDICTING GLOMERULAR FILTRATION RATE. ESTIMATED GFR IS NOT APPLICABLE FOR DIALYSIS PATIENTS. POCT-GLUCOSE [id number] 04:25:00 Test Item Value Reference Range Comments POC-GLUCOSE METER (BEAKER) 81 mg/dL 70-110 TESTED AT [address] (test idok=2432) [place] [id number] POCT-GLUCOSE [id number] 21:58:00 Test Item Value Reference Range Comments POC-GLUCOSE METER (BEAKER) 164 mg/dL 70-110 TESTED AT [address] (test oiua=1242) [place] [id number] POCT-GLUCOSE [id number] 18:38:00 Test Item Value Reference Range Comments POC-GLUCOSE METER (BEAKER) 98 mg/dL 70-110 TESTED AT [address] (test gssh=5331) [place] [id number] POCT-GLUCOSE [id number] 13:14:00 Test Item Value Reference Range Comments POC-GLUCOSE METER (BEAKER) 105 mg/dL 70-110 TESTED AT [address] (test szxb=2612) [facility] [address] POCT-GLUCOSE [id number] 08:12:00 Test Item Value Reference Range Comments POC-GLUCOSE METER (BEAKER) 115 mg/dL 70-110 TESTED AT [address] (test lpny=6988) [place] [id number] BASIC METABOLIC [id number] 07:37:00 Test Item Value Reference Range Comments SODIUM (BEAKER) (test 136 meq/L 136-145 golt=885) POTASSIUM (BEAKER) (test 3.7 meq/L 3.5-5.1 erbe=565) CHLORIDE (BEAKER) (test 98 meq/L 98-107 ezbm=395) CO2 (BEAKER) (test 28 meq/L 22-29 fxxo=396) BLOOD UREA NITROGEN 54 mg/dL 7-21 (BEAKER) (test jfaz=676) CREATININE (BEAKER) (test 3.37 mg/dL 0.57-1.25 yfud=039) GLUCOSE RANDOM (BEAKER) 85 mg/dL 70-105 (test xcct=149) CALCIUM (BEAKER) (test 8.5 mg/dL 8.4-10.2 vmdo=122) EGFR (BEAKER) (test 13 mL/min/1.73 sq m ESTIMATED GFR IS NOT jhmw=7574) ACCURATE CREATININE CLEARANCE IN PREDICTING GLOMERULAR FILTRATION RATE. ESTIMATED GFR IS NOT APPLICABLE FOR DIALYSIS PATIENTS. POCT-GLUCOSE [id number] 07:22:00 Test Item Value Reference Range Comments POC-GLUCOSE METER (BEAKER) 128 mg/dL 70-110 TESTED AT [address] (test iqcp=5836) [facility] [address] POCT-GLUCOSE [id number] 04:05:00 Test Item Value Reference Range Comments POC-GLUCOSE METER (BEAKER) 95 mg/dL 70-110 TESTED AT [address] (test wijy=2974) [place] [id number] POCT-GLUCOSE [id number] 04:05:00 Test Item Value Reference Range Comments POC-GLUCOSE METER (BEAKER) 68 mg/dL 70-110 TESTED AT [address] (test eqyu=5958) [place] [id number] POCT-GLUCOSE [id number] 04:05:00 Test Item Value Reference Range Comments POC-GLUCOSE METER (BEAKER) 52 mg/dL 70-110 TESTED AT [address] (test gykh=0022) [facility] [address] POCT-GLUCOSE [id number] 22:26:00 Test Item Value Reference Range Comments POC-GLUCOSE METER (BEAKER) 132 mg/dL 70-110 TESTED AT [address] (test uszk=4326) [facility] [address] POCT-GLUCOSE [id number] 19:58:00 Test Item Value Reference Range Comments POC-GLUCOSE METER (BEAKER) 134 mg/dL 70-110 TESTED AT [address] (test tgnw=7262) [facility] [address] POCT-GLUCOSE [id number] 13:11:00 Test Item Value Reference Range Comments POC-GLUCOSE METER (BEAKER) 148 mg/dL 70-110 TESTED AT [address] (test enmb=0527) [place] [id number] POCT-GLUCOSE [id number] 12:30:00 Test Item Value Reference Range Comments POC-GLUCOSE METER (BEAKER) 183 mg/dL 70-110 TESTED AT [address] (test bvry=3801) [facility] [address] CBC W/PLT COUNT & AUTO [id number] 10:37:00 Test Item Value Reference Range Comments WHITE BLOOD CELL COUNT (BEAKER) (test wrss=522) 7.4 K/ L 3.5-10.5 RED BLOOD CELL COUNT (BEAKER) (test qrnb=590) 3.03 M/ L 3.93-5.22 HEMOGLOBIN (BEAKER) (test bvou=830) 9.5 GM/DL 11.2-15.7 HEMATOCRIT (BEAKER) (test isqb=211) 31.4 % 34.1-44.9 MEAN CORPUSCULAR VOLUME (BEAKER) (test ltej=824) 103.6 fL 79.4-94.8 MEAN CORPUSCULAR HEMOGLOBIN (BEAKER) (test 31.4 pg 25.6-32.2 eooa=818) MEAN CORPUSCULAR HEMOGLOBIN CONC (BEAKER) (test 30.3 GM/DL 32.2-35.5 scgz=298) RED CELL DISTRIBUTION WIDTH (BEAKER) (test 18.8 % 11.7-14.4 lkom=183) PLATELET COUNT (BEAKER) (test wkps=540) 205 K/CU MM 150-450 MEAN PLATELET VOLUME (BEAKER) (test yrjv=042) 9.8 fL 9.4-12.3 NUCLEATED RED BLOOD CELLS (BEAKER) (test 0 /100 WBC 0-0 ifbs=072) NEUTROPHILS RELATIVE PERCENT (BEAKER) (test 70 % iglu=011) LYMPHOCYTES RELATIVE PERCENT (BEAKER) (test 11 % swso=341) MONOCYTES RELATIVE PERCENT (BEAKER) (test 15 % kdbc=446) EOSINOPHILS RELATIVE PERCENT (BEAKER) (test 2 % phrs=181) BASOPHILS RELATIVE PERCENT (BEAKER) (test 0 % xonk=866) NEUTROPHILS ABSOLUTE COUNT (BEAKER) (test 5.19 K/ L 1.56-6.13 fqnb=095) LYMPHOCYTES ABSOLUTE COUNT (BEAKER) (test 0.82 K/ L 1.18-3.74 tvte=302) MONOCYTES ABSOLUTE COUNT (BEAKER) (test 1.13 K/ L 0.24-0.36 emui=094) EOSINOPHILS ABSOLUTE COUNT (BEAKER) (test 0.14 K/ L 0.04-0.36 cqpj=150) BASOPHILS ABSOLUTE COUNT (BEAKER) (test 0.03 K/ L 0.01-0.08 taaq=546) IMMATURE GRANULOCYTES-RELATIVE PERCENT (BEAKER) 1 % 0-1 (test xiho=7112) POCT-GLUCOSE [id number] 08:09:00 Test Item Value Reference Range Comments POC-GLUCOSE METER (BEAKER) 99 mg/dL 70-110 TESTED AT [address] (test ivmt=2519) [facility] [address] BASIC METABOLIC [id number] 05:41:00 Test Item Value Reference Range Comments SODIUM (BEAKER) (test 136 meq/L 136-145 pgzg=716) POTASSIUM (BEAKER) (test 4.1 meq/L 3.5-5.1 rczs=069) CHLORIDE (BEAKER) (test 99 meq/L 98-107 mbbc=888) CO2 (BEAKER) (test 29 meq/L 22-29 ilgt=205) BLOOD UREA NITROGEN 46 mg/dL 7-21 (BEAKER) (test idne=253) CREATININE (BEAKER) (test 3.01 mg/dL 0.57-1.25 cpto=246) GLUCOSE RANDOM (BEAKER) 107 mg/dL 70-105 (test fcyk=025) CALCIUM (BEAKER) (test 8.5 mg/dL 8.4-10.2 pajo=611) EGFR (BEAKER) (test 15 mL/min/1.73 sq m ESTIMATED GFR IS NOT khqz=8709) ACCURATE CREATININE CLEARANCE IN PREDICTING GLOMERULAR FILTRATION RATE. ESTIMATED GFR IS NOT APPLICABLE FOR DIALYSIS PATIENTS. POCT-GLUCOSE [id number] 21:42:00 Test Item Value Reference Range Comments POC-GLUCOSE METER (BEAKER) 171 mg/dL 70-110 TESTED AT [address] (test clvl=5184) [place] [id number] POCT-GLUCOSE [id number] 18:03:00 Test Item Value Reference Range Comments POC-GLUCOSE METER (BEAKER) 123 mg/dL 70-110 TESTED AT [address] (test dzdq=5780) [place] [id number] POCT-GLUCOSE [id number] 12:52:00 Test Item Value Reference Range Comments POC-GLUCOSE METER (BEAKER) 167 mg/dL 70-110 TESTED AT [address] (test fjue=7970) [facility] [address] POCT-GLUCOSE [id number] 09:05:00 Test Item Value Reference Range Comments POC-GLUCOSE METER (BEAKER) 128 mg/dL 70-110 TESTED AT [address] (test byrj=6761) [facility] [address] CT, PELVIS, WO [id number] 08:42:00FINAL REPORT CT pelvis without contrast HISTORY: [...] No findings of underlying osteomyelitis. Signed: Lucho Averyeport Verified Date/Time: 08/16/2018 08:42:53 Reading Location: [facility] Radiology Reading Room BASIC METABOLIC [id number] 05:58:00 Test Item Value Reference Range Comments SODIUM (BEAKER) (test 137 meq/L 136-145 afkn=463) POTASSIUM (BEAKER) (test 4.2 meq/L 3.5-5.1 jsae=368) CHLORIDE (BEAKER) (test 100 meq/L 98-107 adgc=345) CO2 (BEAKER) (test 28 meq/L 22-29 oaja=640) BLOOD UREA NITROGEN 48 mg/dL 7-21 (BEAKER) (test qaij=298) CREATININE (BEAKER) (test 2.88 mg/dL 0.57-1.25 fysf=696) GLUCOSE RANDOM (BEAKER) 115 mg/dL 70-105 (test xtsb=573) CALCIUM (BEAKER) (test 8.7 mg/dL 8.4-10.2 kdes=529) EGFR (BEAKER) (test 16 mL/min/1.73 sq m ESTIMATED GFR IS NOT qstt=8929) ACCURATE CREATININE CLEARANCE IN PREDICTING GLOMERULAR FILTRATION RATE. ESTIMATED GFR IS NOT APPLICABLE FOR DIALYSIS PATIENTS. POCT-GLUCOSE [id number] 03:05:00 Test Item Value Reference Range Comments POC-GLUCOSE METER (BEAKER) 157 mg/dL 70-110 TESTED AT [facility] [address] (test gnhv=1261) [facility] [address] POCT-GLUCOSE [id number] 20:57:00 Test Item Value Reference Range Comments POC-GLUCOSE METER (BEAKER) 106 mg/dL 70-110 TESTED AT [address] (test pnkw=6921) [facility] [address] POCT-GLUCOSE [id number] 18:13:00 Test Item Value Reference Range Comments POC-GLUCOSE METER (BEAKER) 237 mg/dL 70-110 TESTED AT [address] (test tgtb=5048) [place] [address] POCT-GLUCOSE [id number] 13:47:00 Test Item Value Reference Range Comments POC-GLUCOSE METER (BEAKER) 172 mg/dL 70-110 TESTED AT [address] (test djfa=7978) [place] [address] POCT-GLUCOSE [id number] 08:50:00 Test Item Value Reference Range Comments POC-GLUCOSE METER (BEAKER) 155 mg/dL 70-110 TESTED AT [address] (test jfcb=5905) [place] [address] BASIC METABOLIC [id number] 06:36:00 Test Item Value Reference Range Comments SODIUM (BEAKER) (test 134 meq/L 136-145 vhxe=505) POTASSIUM (BEAKER) (test 3.6 meq/L 3.5-5.1 ecin=042) CHLORIDE (BEAKER) (test 100 meq/L 98-107 rzaq=344) CO2 (BEAKER) (test 26 meq/L 22-29 phsj=247) BLOOD UREA NITROGEN 47 mg/dL 7-21 (BEAKER) (test bpba=470) CREATININE (BEAKER) (test 3.21 mg/dL 0.57-1.25 zyiz=904) GLUCOSE RANDOM (BEAKER) 139 mg/dL 70-105 (test exiw=062) CALCIUM (BEAKER) (test 8.3 mg/dL 8.4-10.2 qxka=170) EGFR (BEAKER) (test 14 mL/min/1.73 sq m ESTIMATED GFR IS NOT gatx=3486) ACCURATE CREATININE CLEARANCE IN PREDICTING GLOMERULAR FILTRATION RATE. ESTIMATED GFR IS NOT APPLICABLE FOR DIALYSIS PATIENTS. POCT-GLUCOSE [id number] 22:53:00 Test Item Value Reference Range Comments POC-GLUCOSE METER (BEAKER) 231 mg/dL 70-110 TESTED AT [address] (test hlob=4052) [place] [address] POCT-GLUCOSE [id number] 17:51:00 Test Item Value Reference Range Comments POC-GLUCOSE METER (BEAKER) 169 mg/dL 70-110 TESTED AT [facility] [address] (test aucs=1704) [facility] [address] RESPIRATORY PANEL [id number] 15:45:00 Test Item Value Reference Range Comments HUMAN METAPNEUMOVIRUS (BEAKER) (test Not detected Not detected, Equivocal ftnq=8741) RHINOVIRUS (BEAKER) (test bmqr=2080) Not detected Not detected, Equivocal INFLUENZA A (BEAKER) (test mnxb=9864) Not detected Not detected, Equivocal INFLUENZA A (NO SUBTYPE) (test Not detected, Equivocal mqwv=5758) INFLUENZA A SUBTYPE H1 (BEAKER) (test Not detected, Equivocal zyki=1514) INFLUENZA A SUBTYPE H3 (BEAKER) (test Not detected, Equivocal hhad=0663) INFLUENZA A SUBTYPE H1-2009 (BEAKER) Not detected, Equivocal (test qjws=0333) INFLUENZA B (BEAKER) (test tcvt=8421) Not detected Not detected, Equivocal RESPIRATORY SYNCYTIAL VIRUS (BEAKER) Not detected Not detected, Equivocal (test lksq=1323) PARAINFLUENZA VIRUS 1 (BEAKER) (test Not detected Not detected, Equivocal hpdd=1616) PARAINFLUENZA VIRUS 2 (BEAKER) (test Not detected Not detected, Equivocal xmtl=0444) PARAINFLUENZA VIRUS 3 (BEAKER) (test Not detected Not detected, Equivocal gqyh=0258) PARAINFLUENZA VIRUS 4 (BEAKER) (test Not detected Not detected, Equivocal yyeh=9196) ADENOVIRUS (BEAKER) (test ppxr=5977) Not detected Not detected, Equivocal CORONAVIRUS 229E (BEAKER) (test Not detected Not detected, Equivocal jxes=9292) CORONAVIRUS HKU1 (BEAKER) (test Not detected Not detected, Equivocal khje=5287) CORONAVIRUS NL63 (BEAKER) (test Not detected Not detected, Equivocal yhzj=3662) CORONAVIRUS OC43 (BEAKER) (test Not detected Not detected, Equivocal sxhm=3753) BORDETELLA PERTUSSIS (BEAKER) (test Not detected Not detected, Equivocal dqmh=4371) CHLAMYDOPHILA PNEUMONIAE (BEAKER) (test Not detected Not detected, Equivocal vryx=4226) MYCOPLASMA PNEUMONIAE (BEAKER) (test Not detected Not detected, Equivocal xrza=6963) Other viruses and bacteria not targeted by this PCR panel cannot be excluded; therefore clinical correlation and follow up of serology, culture results, and other molecular studies is required. The results are not intended to be used as the sole means for clinical diagnosis or patient management decisions. This sample was tested at the [facility] using the [employer] FilmArray Respiratory Panel. It is FDA cleared and has been verified and approved by the [facility] for clinical use on nasopharyngeal swab specimens.The performance of the FilmArrayRP has not been established in individuals who received influenza vaccine. Recent administration ofa nasal influenza vaccine may cause false positive results for Influenza A and/orInfluenza B.URINALYSIS W/ REFLEX URINE [id number] 12:32 :00 Test Item Value Reference Range Comments COLOR (BEAKER) (test vofj=297) Light Yellow CLARITY (BEAKER) (test xnil=448) Hazy SPECIFIC GRAVITY UA (BEAKER) (test btrh=222) 1.009 1.001-1.035 PH UA (BEAKER) (test vppf=460) 6.0 5.0-8.0 PROTEIN UA (BEAKER) (test ttpx=366) 30 mg/dL Negative GLUCOSE UA (BEAKER) (test uabi=650) Negative Negative KETONES UA (BEAKER) (test ysdk=120) Negative Negative BILIRUBIN UA (BEAKER) (test vnym=956) Negative Negative BLOOD UA (BEAKER) (test osyo=458) Small Negative NITRITE UA (BEAKER) (test jpkk=224) Negative Negative LEUKOCYTE ESTERASE UA (BEAKER) (test mntl=083) Large Negative UROBILINOGEN UA (BEAKER) (test yakl=759) 0.2 mg/dL 0.2-1.0 RBC UA (BEAKER) (test xdnk=263) 0 /HPF WBC UA (BEAKER) (test cryh=424) > /HPF BACTERIA (BEAKER) (test zjmr=093) Many SQUAMOUS EPITHELIAL (BEAKER) (test axib=321) < /HPF RENAL EPITHELIAL (BEAKER) (test nnoo=4225) 15 /HPF WBC CASTS (BEAKER) (test jtvo=4608) 14 /LPF SOURCE(BEAKER) (test nvqy=3889) POCT-GLUCOSE [id number] 12:29:00 Test Item Value Reference Range Comments POC-GLUCOSE METER (BEAKER) 222 mg/dL 70-110 TESTED AT [facility] [address] (test wkug=3468) [place] [address] CBC W/PLT COUNT & AUTO [id number] 10:12:00 Test Item Value Reference Range Comments WHITE BLOOD CELL COUNT (BEAKER) (test mfdc=851) 11.6 K/ L 3.5-10.5 RED BLOOD CELL COUNT (BEAKER) (test fjkk=007) 2.77 M/ L 3.93-5.22 HEMOGLOBIN (BEAKER) (test ncjr=847) 8.7 GM/DL 11.2-15.7 HEMATOCRIT (BEAKER) (test twqc=698) 27.2 % 34.1-44.9 MEAN CORPUSCULAR VOLUME (BEAKER) (test dzvl=526) 98.2 fL 79.4-94.8 MEAN CORPUSCULAR HEMOGLOBIN (BEAKER) (test 31.4 pg 25.6-32.2 ajcq=628) MEAN CORPUSCULAR HEMOGLOBIN CONC (BEAKER) (test 32.0 GM/DL 32.2-35.5 ydgm=366) RED CELL DISTRIBUTION WIDTH (BEAKER) (test 17.4 % 11.7-14.4 tvnd=050) PLATELET COUNT (BEAKER) (test vefy=087) 209 K/CU MM 150-450 MEAN PLATELET VOLUME (BEAKER) (test buwn=089) 10.2 fL 9.4-12.3 NUCLEATED RED BLOOD CELLS (BEAKER) (test 1 /100 WBC 0-0 ecxt=345) (CELLAVISION MANUAL DIFF)2018-08-14 10:12:00 Test Item Value Reference Range Comments NEUTROPHILS - REL (CELLAVISION)(BEAKER) (test 86 % ilbi=8009) LYMPHOCYTES - REL (CELLAVISION)(BEAKER) (test 4 % kpzh=1485) MONOCYTES - REL (CELLAVISION)(BEAKER) (test 5 % ampv=2314) EOSINOPHILS - REL (CELLAVISION)(BEAKER) (test 2 % djqh=3427) METAMYELOCYTES - REL (CELLAVISION)(BEAKER) (test 2 % 0-0 mlxq=8141) MYELOCYTES - REL (CELLAVISION)(BEAKER) (test 1 % 0-0 srwj=4728) NEUTROPHILS - ABS (CELLAVISION)(BEAKER) (test 9.98 K/ul 1.56-6.13 gpnw=0730) LYMPHOCYTES - ABS (CELLAVISION)(BEAKER) (test 0.46 K/ul 1.18-3.74 hbae=6866) MONOCYTES - ABS (CELLAVISION)(BEAKER) (test 0.58 K/uL 0.24-0.36 nlvv=8358) EOSINOPHILS - ABS (CELLAVISION)(BEAKER) (test 0.23 K/uL 0.04-0.36 rvzx=1656) METAMYELOCYTES - ABS (CELLAVISION)(BEAKER) (test 0.23 K/uL 0.00-0.00 xqgq=8193) MYELOCYTES-ABS (CELLAVISION)(BEAKER) (test 0.12 K/uL 0.00-0.00 hkag=3649) TOTAL COUNTED (BEAKER) (test yodb=8006) 100 MANUAL NRBC PER 100 CELLS (BEAKER) (test 1 /100 WBC 0-0 cruy=7128) WBC MORPHOLOGY (BEAKER) (test wwyg=410) Normal PLT MORPHOLOGY (BEAKER) (test zerv=642) Normal POLYCHROMATOPHILLIC RBCS(BEAKER) (test tpxi=782) 1+ few HYPOCHROMIA (BEAKER) (test hzkx=726) 1+ few ARTIFACT (CELLAVISION)(BEAKER) (test qlwx=4942) Present PLATELET CONCENTRATION (CELLAVISION)(BEAKER) Adequate (test inme=3347) Received comment: User comments: Slide comments:RAD, CHEST, 1 VIEW, NON [id number] -[id number] 09:50:00Reason for exam:->coughShould this be performed at the bedside ?->YesFINAL REPORT CLINICAL HISTORY: cough TECHNIQUE : 1 view of the chest. COMPARISON: 08/12/2018 IMPRESSION: Mild lung base pleural- parenchymal opacity is again seen. There is minimalright lung base opacity and blunting of the right costophrenic angle. The cardiomediastinal silhouette is magnified by technique. Cervical fusion hardware is partially imaged. Signed: Su Ledesma MDReport Verified Date/Time: 08/14/2018 09:50:21 Reading Location : [facility] Reading Room POCT-GLUCOSE [id number] 08:20:00 Test Item Value Reference Range Comments POC-GLUCOSE METER (BEAKER) 126 mg/dL 70-110 TESTED AT [facility] [address] (test gvsg=0255) [facility] [address] COMPREHENSIVE METABOLIC [id number] 07:13:00 Test Item Value Reference Range Comments TOTAL PROTEIN (BEAKER) 5.5 gm/dL 6.0-8.3 (test euld=581) ALBUMIN (BEAKER) (test 3.1 g/dL 3.5-5.0 ohcy=8345) ALKALINE PHOSPHATASE 67 U/L 40-150 (BEAKER) (test klxo=285) BILIRUBIN TOTAL (BEAKER) 0.6 mg/dL 0.2-1.2 (test whuk=194) SODIUM (BEAKER) (test 135 meq/L 136-145 tuan=415) POTASSIUM (BEAKER) (test 3.8 meq/L 3.5-5.1 yfay=346) CHLORIDE (BEAKER) (test 99 meq/L 98-107 jfer=189) CO2 (BEAKER) (test 27 meq/L 22-29 bfdf=253) BLOOD UREA NITROGEN 45 mg/dL 7-21 (BEAKER) (test dati=813) CREATININE (BEAKER) (test 3.56 mg/dL 0.57-1.25 ajwn=728) GLUCOSE RANDOM (BEAKER) 116 mg/dL 70-105 (test itao=774) CALCIUM (BEAKER) (test 8.5 mg/dL 8.4-10.2 jixi=107) AST (SGOT) (BEAKER) (test 30 U/L 5-34 rdhg=656) ALT (SGPT) (BEAKER) (test 18 U/L 6-55 oigh=352) EGFR (BEAKER) (test 12 mL/min/1.73 sq m ESTIMATED GFR IS NOT odui=6473) ACCURATE CREATININE CLEARANCE IN PREDICTING GLOMERULAR FILTRATION RATE. ESTIMATED GFR IS NOT APPLICABLE FOR DIALYSIS PATIENTS. [id number] 06:59:00 Test Item Value Reference Range Comments PHOSPHORUS (BEAKER) (test qkkq=868) 2.3 mg/dL 2.3-4.7 [id number] 06:59:00 Test Item Value Reference Range Comments MAGNESIUM (BEAKER) (test pgny=324) 2.0 mg/dL 1.6-2.6 CALCIUM, [id number] 06:47:00 Test Item Value Reference Range Comments CALCIUM IONIZED (BEAKER) (test aphk=340) 1.04 mmol/L 1.12-1.27 PH, BLOOD (BEAKER) (test yjxx=6103) 7.38 POCT-GLUCOSE [id number] 23:29:00 Test Item Value Reference Range Comments POC-GLUCOSE METER (BEAKER) 196 mg/dL 70-110 TESTED AT [address] (test szlg=0027) [facility] [address] POCT-GLUCOSE [id number] 17:42:00 Test Item Value Reference Range Comments POC-GLUCOSE METER (BEAKER) 179 mg/dL 70-110 TESTED AT [address] (test dnao=9547) [facility] [address] POCT-GLUCOSE [id number] 12:19:00 Test Item Value Reference Range Comments POC-GLUCOSE METER (BEAKER) 189 mg/dL 70-110 TESTED AT [address] (test bmph=8229) [facility] [address] POCT-GLUCOSE [id number] 08:34:00 Test Item Value Reference Range Comments POC-GLUCOSE METER (BEAKER) 119 mg/dL 70-110 TESTED AT [address] (test wdon=0740) [facility] [address] COMPREHENSIVE METABOLIC [id number] 02:54:00 Test Item Value Reference Range Comments TOTAL PROTEIN (BEAKER) 5.8 gm/dL 6.0-8.3 (test owqv=366) ALBUMIN (BEAKER) (test 3.2 g/dL 3.5-5.0 xadc=4793) ALKALINE PHOSPHATASE 65 U/L 40-150 (BEAKER) (test cncj=286) BILIRUBIN TOTAL (BEAKER) 0.8 mg/dL 0.2-1.2 (test msgt=632) SODIUM (BEAKER) (test 134 meq/L 136-145 stom=856) POTASSIUM (BEAKER) (test 3.6 meq/L 3.5-5.1 wday=592) CHLORIDE (BEAKER) (test 100 meq/L 98-107 xlgr=622) CO2 (BEAKER) (test 25 meq/L 22-29 swep=799) BLOOD UREA NITROGEN 43 mg/dL 7-21 (BEAKER) (test gyfb=904) CREATININE (BEAKER) (test 3.41 mg/dL 0.57-1.25 cvte=559) GLUCOSE RANDOM (BEAKER) 90 mg/dL 70-105 (test fogc=294) CALCIUM (BEAKER) (test 8.4 mg/dL 8.4-10.2 beua=825) AST (SGOT) (BEAKER) (test 25 U/L 5-34 ofvp=988) ALT (SGPT) (BEAKER) (test 16 U/L 6-55 elft=757) EGFR (BEAKER) (test 13 mL/min/1.73 sq m ESTIMATED GFR IS NOT ceor=5562) ACCURATE CREATININE CLEARANCE IN PREDICTING GLOMERULAR FILTRATION RATE. ESTIMATED GFR IS NOT APPLICABLE FOR DIALYSIS PATIENTS. [id number] 02:48:00 Test Item Value Reference Range Comments PHOSPHORUS (BEAKER) (test aaee=123) 2.2 mg/dL 2.3-4.7 [id number] 02:48:00 Test Item Value Reference Range Comments MAGNESIUM (BEAKER) (test mwjo=500) 1.5 mg/dL 1.6-2.6 CALCIUM, [id number] 02:32:00 Test Item Value Reference Range Comments CALCIUM IONIZED (BEAKER) (test sgfd=600) 0.93 mmol/L 1.12-1.27 PH, BLOOD (BEAKER) (test nkxx=1418) 7.53 CBC W/PLT COUNT & AUTO [id number] 02:31:00 Test Item Value Reference Range Comments WHITE BLOOD CELL COUNT (BEAKER) (test xcje=460) 12.6 K/ L 3.5-10.5 RED BLOOD CELL COUNT (BEAKER) (test gpox=274) 2.95 M/ L 3.93-5.22 HEMOGLOBIN (BEAKER) (test xbbr=111) 9.3 GM/DL 11.2-15.7 HEMATOCRIT (BEAKER) (test qwma=296) 29.5 % 34.1-44.9 MEAN CORPUSCULAR VOLUME (BEAKER) (test wqch=125) 100.0 fL 79.4-94.8 MEAN CORPUSCULAR HEMOGLOBIN (BEAKER) (test 31.5 pg 25.6-32.2 dcnh=066) MEAN CORPUSCULAR HEMOGLOBIN CONC (BEAKER) (test 31.5 GM/DL 32.2-35.5 atzr=320) RED CELL DISTRIBUTION WIDTH (BEAKER) (test 17.2 % 11.7-14.4 fdch=596) PLATELET COUNT (BEAKER) (test pnpi=030) 198 K/CU MM 150-450 MEAN PLATELET VOLUME (BEAKER) (test ycix=576) 9.9 fL 9.4-12.3 NUCLEATED RED BLOOD CELLS (BEAKER) (test 2 /100 WBC 0-0 svhm=267) NEUTROPHILS RELATIVE PERCENT (BEAKER) (test 72 % wxub=689) LYMPHOCYTES RELATIVE PERCENT (BEAKER) (test 12 % mwqx=900) MONOCYTES RELATIVE PERCENT (BEAKER) (test 12 % socr=738) EOSINOPHILS RELATIVE PERCENT (BEAKER) (test 1 % wykp=656) BASOPHILS RELATIVE PERCENT (BEAKER) (test 0 % lpky=791) NEUTROPHILS ABSOLUTE COUNT (BEAKER) (test 9.10 K/ L 1.56-6.13 oqeb=795) LYMPHOCYTES ABSOLUTE COUNT (BEAKER) (test 1.47 K/ L 1.18-3.74 dgaz=251) MONOCYTES ABSOLUTE COUNT (BEAKER) (test 1.48 K/ L 0.24-0.36 tjqd=756) EOSINOPHILS ABSOLUTE COUNT (BEAKER) (test 0.18 K/ L 0.04-0.36 zrke=453) BASOPHILS ABSOLUTE COUNT (BEAKER) (test 0.04 K/ L 0.01-0.08 qsde=066) IMMATURE GRANULOCYTES-RELATIVE PERCENT (BEAKER) 3 % 0-1 (test cpsk=2246) POCT-GLUCOSE [id number] 02:17:00 Test Item Value Reference Range Comments POC-GLUCOSE METER (BEAKER) 97 mg/dL 70-110 TESTED AT [address] (test dtrz=7048) [facility] [id number] POCT-GLUCOSE [id number] 21:04:00 Test Item Value Reference Range Comments POC-GLUCOSE METER (BEAKER) 147 mg/dL 70-110 TESTED AT [address] (test tehk=2057) [place] [id number] POCT-GLUCOSE [id number] 17:42:00 Test Item Value Reference Range Comments POC-GLUCOSE METER (BEAKER) 172 mg/dL 70-110 TESTED AT [address] (test asab=0454) [place] [address] POCT-GLUCOSE [id number] 12:05:00 Test Item Value Reference Range Comments POC-GLUCOSE METER (BEAKER) 124 mg/dL 70-110 TESTED AT [address] (test enfb=2150) [place] [address] POCT-GLUCOSE [id number] 07:37:00 Test Item Value Reference Range Comments POC-GLUCOSE METER (BEAKER) 94 mg/dL 70-110 TESTED AT [address] (test fzgs=3731) [place] [address] RAD, CHEST, 1 VIEW, NON [id number] 04:50:00Reason for exam:->SOBShould this be performed at the bedside?->YesFINAL REPORT CLINICAL INDICATION: Shortness of breath Comparison: 08/11/2018 The examination is limited by lordotic positioning. The cardiomediastinal contours are stable. Central pulmonary vascular congestion and bilateral parenchymal opacities are partially improved, suggesting improving pulmonary edema. Small bilateral pleural effusions are present. There is no pneumothorax.A right IJ CVC has been removed. Signed: Wilson Valdez MDReport Verified Date/Time: 08/12/2018 04:50: 01 Reading Location: [address] Reading Room POCT-GLUCOSE [id number] 04:39:00 Test Item Value Reference Range Comments POC-GLUCOSE METER (BEAKER) 107 mg/dL 70-110 TESTED AT [address] (test rvnx=6867) [place] [address] COMPREHENSIVE METABOLIC [id number] 04:16:00 Test Item Value Reference Range Comments TOTAL PROTEIN (BEAKER) 5.6 gm/dL 6.0-8.3 (test auew=146) ALBUMIN (BEAKER) (test 3.2 g/dL 3.5-5.0 dlab=8705) ALKALINE PHOSPHATASE 66 U/L 40-150 (BEAKER) (test soho=158) BILIRUBIN TOTAL (BEAKER) 0.6 mg/dL 0.2-1.2 (test hsqs=343) SODIUM (BEAKER) (test 136 meq/L 136-145 ojtn=284) POTASSIUM (BEAKER) (test 4.0 meq/L 3.5-5.1 zibu=991) CHLORIDE (BEAKER) (test 102 meq/L 98-107 egbj=886) CO2 (BEAKER) (test 25 meq/L 22-29 xfvp=610) BLOOD UREA NITROGEN 38 mg/dL 7-21 (BEAKER) (test wpao=013) CREATININE (BEAKER) (test 3.33 mg/dL 0.57-1.25 qceh=390) GLUCOSE RANDOM (BEAKER) 105 mg/dL 70-105 (test rqpi=194) CALCIUM (BEAKER) (test 8.6 mg/dL 8.4-10.2 qfpq=838) AST (SGOT) (BEAKER) (test 25 U/L 5-34 uqyy=832) ALT (SGPT) (BEAKER) (test 16 U/L 6-55 jcjm=495) EGFR (BEAKER) (test 13 mL/min/1.73 sq m ESTIMATED GFR IS NOT yvvk=5281) ACCURATE CREATININE CLEARANCE IN PREDICTING GLOMERULAR FILTRATION RATE. ESTIMATED GFR IS NOT APPLICABLE FOR DIALYSIS PATIENTS. [id number] 04:11:00 Test Item Value Reference Range Comments PHOSPHORUS (BEAKER) (test jdgs=285) 2.9 mg/dL 2.3-4.7 [id number] 04:11:00 Test Item Value Reference Range Comments MAGNESIUM (BEAKER) (test blsf=420) 1.9 mg/dL 1.6-2.6 CBC W/PLT COUNT & AUTO [id number] 03:57:00 Test Item Value Reference Range Comments WHITE BLOOD CELL COUNT (BEAKER) (test gjsg=820) 12.6 K/ L 3.5-10.5 RED BLOOD CELL COUNT (BEAKER) (test qddx=353) 2.87 M/ L 3.93-5.22 HEMOGLOBIN (BEAKER) (test folp=358) 9.0 GM/DL 11.2-15.7 HEMATOCRIT (BEAKER) (test siid=009) 28.6 % 34.1-44.9 MEAN CORPUSCULAR VOLUME (BEAKER) (test hcgd=760) 99.7 fL 79.4-94.8 MEAN CORPUSCULAR HEMOGLOBIN (BEAKER) (test 31.4 pg 25.6-32.2 kjjg=326) MEAN CORPUSCULAR HEMOGLOBIN CONC (BEAKER) (test 31.5 GM/DL 32.2-35.5 zmnx=190) RED CELL DISTRIBUTION WIDTH (BEAKER) (test 16.1 % 11.7-14.4 mmfo=626) PLATELET COUNT (BEAKER) (test lguv=624) 204 K/CU MM 150-450 MEAN PLATELET VOLUME (BEAKER) (test ziyi=768) 10.5 fL 9.4-12.3 NUCLEATED RED BLOOD CELLS (BEAKER) (test 5 /100 WBC 0-0 ibxk=576) NEUTROPHILS RELATIVE PERCENT (BEAKER) (test 77 % lbuq=652) LYMPHOCYTES RELATIVE PERCENT (BEAKER) (test 9 % ojbq=974) MONOCYTES RELATIVE PERCENT (BEAKER) (test 11 % dfki=109) EOSINOPHILS RELATIVE PERCENT (BEAKER) (test 2 % hmoz=128) BASOPHILS RELATIVE PERCENT (BEAKER) (test 0 % xhle=763) NEUTROPHILS ABSOLUTE COUNT (BEAKER) (test 9.64 K/ L 1.56-6.13 nerp=490) LYMPHOCYTES ABSOLUTE COUNT (BEAKER) (test 1.07 K/ L 1.18-3.74 cnpi=829) MONOCYTES ABSOLUTE COUNT (BEAKER) (test 1.34 K/ L 0.24-0.36 mxhb=181) EOSINOPHILS ABSOLUTE COUNT (BEAKER) (test 0.19 K/ L 0.04-0.36 ksah=275) BASOPHILS ABSOLUTE COUNT (BEAKER) (test 0.03 K/ L 0.01-0.08 qwfn=372) IMMATURE GRANULOCYTES-RELATIVE PERCENT (BEAKER) 2 % 0-1 (test msma=4963) CALCIUM, [id number] 03:25:00 Test Item Value Reference Range Comments CALCIUM IONIZED (BEAKER) (test kvte=460) 1.10 mmol/L 1.12-1.27 PH, BLOOD (BEAKER) (test kxjf=6168) 7.43 POCT-GLUCOSE [id number] 00:03:00 Test Item Value Reference Range Comments POC-GLUCOSE METER (BEAKER) 122 mg/dL 70-110 TESTED AT [address] (test dszx=5022) [place] [id number] POCT-GLUCOSE [id number] 21:32:00 Test Item Value Reference Range Comments POC-GLUCOSE METER (BEAKER) 104 mg/dL 70-110 TESTED AT [address] (test tdjv=8614) [place] [address] POCT-GLUCOSE [id number] 17:51:00 Test Item Value Reference Range Comments POC-GLUCOSE METER (BEAKER) 151 mg/dL 70-110 TESTED AT [address] (test xnev=1068) [place] [address] BASIC METABOLIC [id number] 16:24:00 Test Item Value Reference Range Comments SODIUM (BEAKER) (test 133 meq/L 136-145 agcs=369) POTASSIUM (BEAKER) (test 4.1 meq/L 3.5-5.1 Specimen slightly yoyi=158) hemolyzed CHLORIDE (BEAKER) (test 101 meq/L 98-107 ohjh=364) CO2 (BEAKER) (test 26 meq/L 22-29 uysf=622) BLOOD UREA NITROGEN 34 mg/dL 7-21 (BEAKER) (test dnzr=141) CREATININE (BEAKER) (test 3.12 mg/dL 0.57-1.25 Specimen slightly hvbm=573) hemolyzed GLUCOSE RANDOM (BEAKER) 167 mg/dL 70-105 (test hiko=587) CALCIUM (BEAKER) (test 8.4 mg/dL 8.4-10.2 tlof=509) EGFR (BEAKER) (test 14 mL/min/1.73 sq m ESTIMATED GFR IS NOT xhdr=4788) ACCURATE CREATININE CLEARANCE IN PREDICTING GLOMERULAR FILTRATION RATE. ESTIMATED GFR IS NOT APPLICABLE FOR DIALYSIS PATIENTS. [id number] 16:22:00 Test Item Value Reference Range Comments MAGNESIUM (BEAKER) (test 1.8 mg/dL 1.6-2.6 Specimen slightly hemolyzed ngat=838) POCT-GLUCOSE [id number] 11:45:00 Test Item Value Reference Range Comments POC-GLUCOSE METER (BEAKER) 141 mg/dL 70-110 TESTED AT [address] (test aayx=7855) [place] [address] POCT-GLUCOSE [id number] 07:51:00 Test Item Value Reference Range Comments POC-GLUCOSE METER (BEAKER) 112 mg/dL 70-110 TESTED AT [facility] [address] (test qejs=0132) [facility] [address] BASIC METABOLIC [id number] 05:18:00 Test Item Value Reference Range Comments SODIUM (BEAKER) (test 135 meq/L 136-145 gidj=949) POTASSIUM (BEAKER) (test 4.7 meq/L 3.5-5.1 Specimen moderately kess=467) hemolyzed CHLORIDE (BEAKER) (test 103 meq/L 98-107 upob=236) CO2 (BEAKER) (test 24 meq/L 22-29 vncl=197) BLOOD UREA NITROGEN 26 mg/dL 7-21 (BEAKER) (test lvew=879) CREATININE (BEAKER) (test 2.47 mg/dL 0.57-1.25 Specimen moderately joos=291) hemolyzed GLUCOSE RANDOM (BEAKER) 101 mg/dL 70-105 (test qtip=919) CALCIUM (BEAKER) (test 8.8 mg/dL 8.4-10.2 guwt=372) EGFR (BEAKER) (test 19 mL/min/1.73 sq m ESTIMATED GFR IS NOT dbmv=9367) ACCURATE CREATININE CLEARANCE IN PREDICTING GLOMERULAR FILTRATION RATE. ESTIMATED GFR IS NOT APPLICABLE FOR DIALYSIS PATIENTS. [id number] 05:12:00 Test Item Value Reference Range Comments MAGNESIUM (BEAKER) (test 2.0 mg/dL 1.6-2.6 Specimen moderately hemolyzed geeb=890) CBC W/PLT COUNT & AUTO [id number] 04:19:00 Test Item Value Reference Range Comments WHITE BLOOD CELL COUNT (BEAKER) (test ggkw=774) 14.3 K/ L 3.5-10.5 RED BLOOD CELL COUNT (BEAKER) (test poqw=354) 3.03 M/ L 3.93-5.22 HEMOGLOBIN (BEAKER) (test awvq=350) 9.4 GM/DL 11.2-15.7 HEMATOCRIT (BEAKER) (test uygd=240) 29.2 % 34.1-44.9 MEAN CORPUSCULAR VOLUME (BEAKER) (test ihra=038) 96.4 fL 79.4-94.8 MEAN CORPUSCULAR HEMOGLOBIN (BEAKER) (test 31.0 pg 25.6-32.2 syvj=409) MEAN CORPUSCULAR HEMOGLOBIN CONC (BEAKER) (test 32.2 GM/DL 32.2-35.5 fvsp=604) RED CELL DISTRIBUTION WIDTH (BEAKER) (test 15.5 % 11.7-14.4 xwbi=638) PLATELET COUNT (BEAKER) (test xjqa=184) 209 K/CU MM 150-450 MEAN PLATELET VOLUME (BEAKER) (test uyeb=566) 10.4 fL 9.4-12.3 NUCLEATED RED BLOOD CELLS (BEAKER) (test 4 /100 WBC 0-0 jsuk=105) NEUTROPHILS RELATIVE PERCENT (BEAKER) (test 80 % zqoi=496) LYMPHOCYTES RELATIVE PERCENT (BEAKER) (test 6 % xqkm=666) MONOCYTES RELATIVE PERCENT (BEAKER) (test 11 % yilv=346) EOSINOPHILS RELATIVE PERCENT (BEAKER) (test 1 % mdhy=569) BASOPHILS RELATIVE PERCENT (BEAKER) (test 0 % mqba=650) NEUTROPHILS ABSOLUTE COUNT (BEAKER) (test 11.46 K/ L 1.56-6.13 hdea=201) LYMPHOCYTES ABSOLUTE COUNT (BEAKER) (test 0.80 K/ L 1.18-3.74 bevi=889) MONOCYTES ABSOLUTE COUNT (BEAKER) (test 1.60 K/ L 0.24-0.36 qmpi=830) EOSINOPHILS ABSOLUTE COUNT (BEAKER) (test 0.07 K/ L 0.04-0.36 ruci=932) BASOPHILS ABSOLUTE COUNT (BEAKER) (test 0.03 K/ L 0.01-0.08 uysm=293) IMMATURE GRANULOCYTES-RELATIVE PERCENT (BEAKER) 3 % 0-1 (test ggvz=7954) RAD, CHEST, 1 VIEW, NON [id number] 03:48:00Reason for exam:->SOBShould this be performed at the bedside?->YesFINAL REPORT RAD , CHEST, 1 VIEW, NON DEPT INDICATION: SOB COMPARISON: Prior day's exam FINDINGS : Portable frontal view of the chest. IMPRESSION: Support Lines: Stable. Lungs and pleura: Unchanged airspace and pleural opacities. No pneumothorax.Heart and mediastinum: Stable contours. Additional findings: None. Signed: Socorro Méndez Verified Date/Time: 08/11/2018 03:48:09 POCT -GLUCOSE [id number] 23:26:00 Test Item Value Reference Range Comments POC-GLUCOSE METER (BEAKER) 101 mg/dL 70-110 TESTED AT [facility] [address] (test rhbs=8209) [facility] [address] POCT-GLUCOSE [id number] 18:11:00 Test Item Value Reference Range Comments POC-GLUCOSE METER (BEAKER) 171 mg/dL 70-110 TESTED AT [place] [id number] [facility] (test vmpr=0989) [place] [address] BASIC METABOLIC [id number] 16:14:00 Test Item Value Reference Range Comments SODIUM (BEAKER) (test 134 meq/L 136-145 zvpn=329) POTASSIUM (BEAKER) (test 4.6 meq/L 3.5-5.1 xawq=159) CHLORIDE (BEAKER) (test 102 meq/L 98-107 ifib=201) CO2 (BEAKER) (test 25 meq/L 22-29 nseo=872) BLOOD UREA NITROGEN 51 mg/dL 7-21 (BEAKER) (test trzu=764) CREATININE (BEAKER) (test 3.89 mg/dL 0.57-1.25 pnqb=138) GLUCOSE RANDOM (BEAKER) 182 mg/dL 70-105 (test dhaa=944) CALCIUM (BEAKER) (test 8.2 mg/dL 8.4-10.2 lbkf=498) EGFR (BEAKER) (test 11 mL/min/1.73 sq m ESTIMATED GFR IS NOT knkm=9419) ACCURATE CREATININE CLEARANCE IN PREDICTING GLOMERULAR FILTRATION RATE. ESTIMATED GFR IS NOT APPLICABLE FOR DIALYSIS PATIENTS. [id number] 16:07:00 Test Item Value Reference Range Comments MAGNESIUM (BEAKER) (test xlkm=425) 2.0 mg/dL 1.6-2.6 LACTIC ACID, [id number] 15:23:00 Test Item Value Reference Range Comments LACTATE BLOOD ARTERIAL (2) (BEAKER) (test 0.9 mmol/L 0.5-2.2 noge=6032) RAD, CHEST, 1 VIEW, NON [id number] 15:07:00Reason for exam:-> hypoxemiaShould this be performed [...] MDReport Verified Date/Time: 08/10/2018 15:07:53 Reading Location: [address] Consult Reading Room 03: 07 PMBLOOD GAS, [id number] 14:53:00 Test Item Value Reference Range Comments PH ARTERIAL (BEAKER) (test oelb=103) 7.44 7.35-7.45 PCO2 ARTERIAL (BEAKER) (test xffv=897) 38 mmHg 35-45 PO2 ARTERIAL (BEAKER) (test gaoz=903) 165 mmHg 80-90 O2 SATURATION ARTERIAL (BEAKER) (test ceft=081) 99.2 % 96.0-97.0 HCO3 ARTERIAL (BEAKER) (test iuwm=640) 26 mmol/L 21-29 BASE EXCESS ARTERIAL (BEAKER) (test pimr=192) 1.1 mmol/L -2.0-3.0 PATIENT TEMPERATURE (BEAKER) (test ivfq=1975) 36.4 C FIO2 (BEAKER) (test mjgq=2576) 44.0 % POCT-GLUCOSE [id number] 12:20:00 Test Item Value Reference Range Comments POC-GLUCOSE METER (BEAKER) 208 mg/dL 70-110 TESTED AT [facility] [address] (test ystf=3126) [facility] [address] CBC W/PLT COUNT & AUTO [id number] 08:56:00 Test Item Value Reference Range Comments WHITE BLOOD CELL COUNT (BEAKER) (test kgiv=824) 12.2 K/ L 3.5-10.5 RED BLOOD CELL COUNT (BEAKER) (test ilzg=768) 2.87 M/ L 3.93-5.22 HEMOGLOBIN (BEAKER) (test mjdt=117) 8.8 GM/DL 11.2-15.7 HEMATOCRIT (BEAKER) (test ohja=393) 27.4 % 34.1-44.9 MEAN CORPUSCULAR VOLUME (BEAKER) (test reuq=679) 95.5 fL 79.4-94.8 MEAN CORPUSCULAR HEMOGLOBIN (BEAKER) (test 30.7 pg 25.6-32.2 posh=385) MEAN CORPUSCULAR HEMOGLOBIN CONC (BEAKER) (test 32.1 GM/DL 32.2-35.5 reuo=708) RED CELL DISTRIBUTION WIDTH (BEAKER) (test 15.1 % 11.7-14.4 bhlr=910) PLATELET COUNT (BEAKER) (test kjbl=966) 224 K/CU MM 150-450 MEAN PLATELET VOLUME (BEAKER) (test fvtf=572) 9.8 fL 9.4-12.3 NUCLEATED RED BLOOD CELLS (BEAKER) (test 1 /100 WBC 0-0 alck=596) (CELLAVISION MANUAL DIFF)2018-08-10 08:56:00 Test Item Value Reference Range Comments NEUTROPHILS - REL (CELLAVISION)(BEAKER) (test 80 % xysp=7759) LYMPHOCYTES - REL (CELLAVISION)(BEAKER) (test 7 % jzyu=1586) MONOCYTES - REL (CELLAVISION)(BEAKER) (test 10 % jdyl=0217) EOSINOPHILS - REL (CELLAVISION)(BEAKER) (test 2 % gyxt=7301) NEUTROPHILS - ABS (CELLAVISION)(BEAKER) (test 9.76 K/ul 1.56-6.13 ylug=6261) LYMPHOCYTES - ABS (CELLAVISION)(BEAKER) (test 0.85 K/ul 1.18-3.74 moov=0506) MONOCYTES - ABS (CELLAVISION)(BEAKER) (test 1.22 K/uL 0.24-0.36 yjbx=9470) EOSINOPHILS - ABS (CELLAVISION)(BEAKER) (test 0.24 K/uL 0.04-0.36 tmmp=0168) TOTAL COUNTED (BEAKER) (test cvdh=3968) 100 MANUAL NRBC PER 100 CELLS (BEAKER) (test 2 /100 WBC 0-0 gwjf=7867) PLT MORPHOLOGY (BEAKER) (test qrsz=060) Normal TOXIC GRANULATION (BEAKER) (test ynhv=711) Present POLYCHROMATOPHILLIC RBCS(BEAKER) (test dzts=465) 1+ few ARTIFACT (CELLAVISION)(BEAKER) (test fxpt=4209) Present PLATELET CONCENTRATION (CELLAVISION)(BEAKER) Adequate (test ndsh=8525) Received comment: User comments: Slide comments:RAD, CHEST, 1 VIEW, NON [id number] 08:03:00Reason for exam:->SOBShould this be performed [...] Navarro MDReport Verified Date/Time: 08:03:28 Reading Location: [facility] Radiology Reading Room POCT- GLUCOSE [id number] 07:51:00 Test Item Value Reference Range Comments POC-GLUCOSE METER (BEAKER) 129 mg/dL 70-110 TESTED AT [address] (test mkga=3341) [facility] [address] POCT-GLUCOSE [id number] 06:38:00 Test Item Value Reference Range Comments POC-GLUCOSE METER (BEAKER) 193 mg/dL 70-110 TESTED AT [address] (test qgzf=8778) [place] [address] POCT-GLUCOSE [id number] 05:48:00 Test Item Value Reference Range Comments POC-GLUCOSE METER (BEAKER) 67 mg/dL 70-110 TESTED AT [address] (test fqtc=7132) [place] [address] BASIC METABOLIC [id number] 05:07:00 Test Item Value Reference Range Comments SODIUM (BEAKER) (test 137 meq/L 136-145 nkon=959) POTASSIUM (BEAKER) (test 4.1 meq/L 3.5-5.1 Specimen slightly miog=015) hemolyzed CHLORIDE (BEAKER) (test 103 meq/L 98-107 gped=827) CO2 (BEAKER) (test 26 meq/L 22-29 vomd=706) BLOOD UREA NITROGEN 45 mg/dL 7-21 (BEAKER) (test sbre=586) CREATININE (BEAKER) (test 2.97 mg/dL 0.57-1.25 Specimen slightly enah=369) hemolyzed GLUCOSE RANDOM (BEAKER) 66 mg/dL 70-105 (test jycw=316) CALCIUM (BEAKER) (test 9.1 mg/dL 8.4-10.2 rvck=126) EGFR (BEAKER) (test 15 mL/min/1.73 sq m ESTIMATED GFR IS NOT hyve=3224) ACCURATE CREATININE CLEARANCE IN PREDICTING GLOMERULAR FILTRATION RATE. ESTIMATED GFR IS NOT APPLICABLE FOR DIALYSIS PATIENTS. [id number] 05:06:00 Test Item Value Reference Range Comments MAGNESIUM (BEAKER) (test 2.0 mg/dL 1.6-2.6 Specimen slightly hemolyzed moqk=615) POCT-GLUCOSE [id number] 20:02:00 Test Item Value Reference Range Comments POC-GLUCOSE METER (BEAKER) 95 mg/dL 70-110 TESTED AT [address] (test kkrr=5414) [place] [address] POCT-GLUCOSE [id number] 17:35:00 Test Item Value Reference Range Comments POC-GLUCOSE METER (BEAKER) 144 mg/dL 70-110 TESTED AT [address] (test alil=8776) [facility] [address] POCT-GLUCOSE [id number] 13:42:00 Test Item Value Reference Range Comments POC-GLUCOSE METER (BEAKER) 180 mg/dL 70-110 TESTED AT [address] (test dqgw=0247) [place] [address] POCT-GLUCOSE [id number] 07:56:00 Test Item Value Reference Range Comments POC-GLUCOSE METER (BEAKER) 206 mg/dL 70-110 TESTED AT [address] (test kwsz=3727) [facility] [address] CBC W/PLT COUNT & AUTO [id number] 06:25:00 Test Item Value Reference Range Comments WHITE BLOOD CELL COUNT (BEAKER) (test algd=129) 13.6 K/ L 3.5-10.5 RED BLOOD CELL COUNT (BEAKER) (test httu=925) 2.66 M/ L 3.93-5.22 HEMOGLOBIN (BEAKER) (test hwrl=177) 8.2 GM/DL 11.2-15.7 HEMATOCRIT (BEAKER) (test xqwf=934) 25.5 % 34.1-44.9 MEAN CORPUSCULAR VOLUME (BEAKER) (test ydfy=045) 95.9 fL 79.4-94.8 MEAN CORPUSCULAR HEMOGLOBIN (BEAKER) (test 30.8 pg 25.6-32.2 lulx=370) MEAN CORPUSCULAR HEMOGLOBIN CONC (BEAKER) (test 32.2 GM/DL 32.2-35.5 hjeq=872) RED CELL DISTRIBUTION WIDTH (BEAKER) (test 14.9 % 11.7-14.4 pjln=719) PLATELET COUNT (BEAKER) (test glrq=620) 278 K/CU MM 150-450 MEAN PLATELET VOLUME (BEAKER) (test ewjc=778) 10.2 fL 9.4-12.3 NUCLEATED RED BLOOD CELLS (BEAKER) (test 0 /100 WBC 0-0 ucem=135) NEUTROPHILS RELATIVE PERCENT (BEAKER) (test 82 % ejsy=204) LYMPHOCYTES RELATIVE PERCENT (BEAKER) (test 5 % djbl=907) MONOCYTES RELATIVE PERCENT (BEAKER) (test 13 % izxw=472) EOSINOPHILS RELATIVE PERCENT (BEAKER) (test 0 % ywlj=804) BASOPHILS RELATIVE PERCENT (BEAKER) (test 0 % fvhr=080) NEUTROPHILS ABSOLUTE COUNT (BEAKER) (test 11.05 K/ L 1.56-6.13 evdy=501) LYMPHOCYTES ABSOLUTE COUNT (BEAKER) (test 0.63 K/ L 1.18-3.74 proe=736) MONOCYTES ABSOLUTE COUNT (BEAKER) (test 1.74 K/ L 0.24-0.36 bynr=880) EOSINOPHILS ABSOLUTE COUNT (BEAKER) (test 0.00 K/ L 0.04-0.36 bdan=337) BASOPHILS ABSOLUTE COUNT (BEAKER) (test 0.01 K/ L 0.01-0.08 grgz=464) IMMATURE GRANULOCYTES-RELATIVE PERCENT (BEAKER) 1 % 0-1 (test hcuy=6098) BASIC METABOLIC [id number] 06:22:00 Test Item Value Reference Range Comments SODIUM (BEAKER) (test 135 meq/L 136-145 lxkb=550) POTASSIUM (BEAKER) (test 4.8 meq/L 3.5-5.1 Specimen moderately dnrj=046) hemolyzed CHLORIDE (BEAKER) (test 102 meq/L 98-107 pedc=029) CO2 (BEAKER) (test 18 meq/L 22-29 zliw=045) BLOOD UREA NITROGEN 84 mg/dL 7-21 (BEAKER) (test fyvs=719) CREATININE (BEAKER) (test 4.72 mg/dL 0.57-1.25 Specimen moderately fmcv=497) hemolyzed GLUCOSE RANDOM (BEAKER) 205 mg/dL 70-105 (test ilzz=192) CALCIUM (BEAKER) (test 8.5 mg/dL 8.4-10.2 tiwk=128) EGFR (BEAKER) (test 9 mL/min/1.73 sq m ESTIMATED GFR IS NOT ezoa=0515) ACCURATE CREATININE CLEARANCE IN PREDICTING GLOMERULAR FILTRATION RATE. ESTIMATED GFR IS NOT APPLICABLE FOR DIALYSIS PATIENTS. RAD, CHEST, 1 VIEW, NON [id number] 05:59:00Reason for exam:->SOBShould this be performed at [...] Postsurgical changes of the cervical spine. Signed: Socorro Méndez Verified Date/Time: 08/09/2018 05:59:24 POCT-GLUCOSE [id number] 22:05:00 Test Item Value Reference Range Comments POC-GLUCOSE METER (BEAKER) 254 mg/dL 70-110 TESTED AT [address] (test jyqa=5506) [place] [address] POCT-GLUCOSE [id number] 18:33:00 Test Item Value Reference Range Comments POC-GLUCOSE METER (BEAKER) 271 mg/dL 70-110 TESTED AT [address] (test ibjt=9041) [place] [id number] RAD, CHEST, 1 VIEW, NON [id number] 15:44:00Reason for exam:->IABP placementShould this be performed [...] Tracey Verified Date/Time: 08/08/2018 15:44:27 Reading Location: [facility] Reading Room RAD, CHEST, 1 VIEW, NON [id number] 13:42: 00Reason for exam:->IABP positionShould this be [...] Tracey Verified Date/Time: 08/08/2018 13:42:06 Reading Location: [facility] Mammo Reading Room POCT-GLUCOSE [id number] 13:28:00 Test Item Value Reference Range Comments POC-GLUCOSE METER (BEAKER) 294 mg/dL 70-110 TESTED AT [address] (test dsob=1944) [facility] [address] RAD, CHEST, 1 VIEW, NON [id number] 08:20:00Reason for exam:->SOBShould this be performed at [...] Sauerort Verified Date/Time: 08/08/2018 08:20:51 Reading Location: [facility] Radiology Reading Room POCT-GLUCOSE [id number] 07:57:00 Test Item Value Reference Range Comments POC-GLUCOSE METER (BEAKER) 286 mg/dL 70-110 TESTED AT [facility] [address] (test dobo=1355) [place] [address] CBC W/PLT COUNT & AUTO [id number] 05:11:00 Test Item Value Reference Range Comments WHITE BLOOD CELL COUNT (BEAKER) (test yajk=938) 11.2 K/ L 3.5-10.5 RED BLOOD CELL COUNT (BEAKER) (test iqlu=412) 2.71 M/ L 3.93-5.22 HEMOGLOBIN (BEAKER) (test kctj=485) 8.3 GM/DL 11.2-15.7 HEMATOCRIT (BEAKER) (test mtjw=277) 26.1 % 34.1-44.9 MEAN CORPUSCULAR VOLUME (BEAKER) (test ovhk=279) 96.3 fL 79.4-94.8 MEAN CORPUSCULAR HEMOGLOBIN (BEAKER) (test 30.6 pg 25.6-32.2 nznz=589) MEAN CORPUSCULAR HEMOGLOBIN CONC (BEAKER) (test 31.8 GM/DL 32.2-35.5 jirx=454) RED CELL DISTRIBUTION WIDTH (BEAKER) (test 14.0 % 11.7-14.4 kijr=538) PLATELET COUNT (BEAKER) (test jihw=474) 227 K/CU MM 150-450 MEAN PLATELET VOLUME (BEAKER) (test pned=796) 10.6 fL 9.4-12.3 NUCLEATED RED BLOOD CELLS (BEAKER) (test 0 /100 WBC 0-0 bxhu=433) NEUTROPHILS RELATIVE PERCENT (BEAKER) (test 90 % zweu=505) LYMPHOCYTES RELATIVE PERCENT (BEAKER) (test 4 % qtiv=229) MONOCYTES RELATIVE PERCENT (BEAKER) (test 4 % mkbi=773) EOSINOPHILS RELATIVE PERCENT (BEAKER) (test 0 % njmn=481) BASOPHILS RELATIVE PERCENT (BEAKER) (test 0 % pnil=780) NEUTROPHILS ABSOLUTE COUNT (BEAKER) (test 10.06 K/ L 1.56-6.13 xoky=521) LYMPHOCYTES ABSOLUTE COUNT (BEAKER) (test 0.45 K/ L 1.18-3.74 pxfr=941) MONOCYTES ABSOLUTE COUNT (BEAKER) (test 0.48 K/ L 0.24-0.36 vbgj=574) EOSINOPHILS ABSOLUTE COUNT (BEAKER) (test 0.00 K/ L 0.04-0.36 zxya=222) BASOPHILS ABSOLUTE COUNT (BEAKER) (test 0.03 K/ L 0.01-0.08 lgwb=944) IMMATURE GRANULOCYTES-RELATIVE PERCENT (BEAKER) 2 % 0-1 (test xvpl=0040) [id number] 04:43:00 Test Item Value Reference Range Comments MAGNESIUM (BEAKER) (test jqhb=782) 2.3 mg/dL 1.6-2.6 BASIC METABOLIC [id number] 04:43:00 Test Item Value Reference Range Comments SODIUM (BEAKER) (test 135 meq/L 136-145 kakm=513) POTASSIUM (BEAKER) (test 4.9 meq/L 3.5-5.1 uhkg=456) CHLORIDE (BEAKER) (test 102 meq/L 98-107 wiqy=934) CO2 (BEAKER) (test 18 meq/L 22-29 jghw=882) BLOOD UREA NITROGEN 68 mg/dL 7-21 (BEAKER) (test coee=572) CREATININE (BEAKER) (test 3.54 mg/dL 0.57-1.25 vwkl=778) GLUCOSE RANDOM (BEAKER) 267 mg/dL 70-105 (test uwei=259) CALCIUM (BEAKER) (test 8.6 mg/dL 8.4-10.2 qnvo=726) EGFR (BEAKER) (test 12 mL/min/1.73 sq m ESTIMATED GFR IS NOT nccy=3856) ACCURATE CREATININE CLEARANCE IN PREDICTING GLOMERULAR FILTRATION RATE. ESTIMATED GFR IS NOT APPLICABLE FOR DIALYSIS PATIENTS. POCT-GLUCOSE [id number] 22:27:00 Test Item Value Reference Range Comments POC-GLUCOSE METER (BEAKER) 279 mg/dL 70-110 TESTED AT [facility] [address] (test hihf=4462) [facility] [address] BASIC METABOLIC [id number] 22:17:00 Test Item Value Reference Range Comments SODIUM (BEAKER) (test 133 meq/L 136-145 cwxd=187) POTASSIUM (BEAKER) (test 4.6 meq/L 3.5-5.1 spsr=528) CHLORIDE (BEAKER) (test 100 meq/L 98-107 uays=713) CO2 (BEAKER) (test 18 meq/L 22-29 btoy=987) BLOOD UREA NITROGEN 64 mg/dL 7-21 ([facility]) (test gsuo=956) CREATININE ([facility]) (test 3.59 mg/dL 0.57-1.25 eqcw=980) GLUCOSE RANDOM ([facility]) 250 mg/dL 70-105 (test lrzc=030) CALCIUM ([facility]) (test 8.3 mg/dL 8.4-10.2 fayo=425) EGFR ([facility]) (test 12 mL/min/1.73 sq m ESTIMATED GFR IS NOT ndln=0026) ACCURATE CREATININE CLEARANCE IN PREDICTING GLOMERULAR FILTRATION RATE. ESTIMATED GFR IS NOT APPLICABLE FOR DIALYSIS PATIENTS. [id number] 22:13:00 Test Item Value Reference Range Comments MAGNESIUM ([facility]) (test xpup=396) 2.1 mg/dL 1.6-2.6 [id number] 19:37:00 Test Item Value Reference Range Comments ACTIVATED CLOTTING TIME 268 sec TESTED AT [address] ([facility]) (test cdjq=482) [place] [address] [id number] 18:30:00 Test Item Value Reference Range Comments ACTIVATED CLOTTING TIME 257 sec TESTED AT [address] ([facility]) (test azfa=192) [place] [address] [id number] 17:58:00 Test Item Value Reference Range Comments ACTIVATED CLOTTING TIME 219 sec TESTED AT [address] ([facility]) (test jawi=938) [place] [address] [id number] 17:58:00 Test Item Value Reference Range Comments ACTIVATED CLOTTING TIME > sec OUTSIDE MEASURING RANGETESTED AT ([facility]) (test htwf=391) [place] [id number] POCT-GLUCOSE [id number] 12:23:00 Test Item Value Reference Range Comments POC-GLUCOSE METER ([facility]) 169 mg/dL 70-110 TESTED AT [address] (test bjfv=5410) [place] [id number] RAD, CHEST, 1 VIEW, NON [id number] 09:10:00Reason for exam:->SOBShould this be performed at the bedside?->YesFINAL REPORT Chest dated 08/07/2018 COMPARISON: 08/06/2018 Clinical Information: SOB Comment: Heart is enlarged. Pulmonary vasculature is indistinct. Interstitial disease is seen bilaterally suggestive of vascular congestion or pulmonary edema. There is small bilateral pleural effusion. IMPRESSION: No interval change. Signed: Yuan Arango MDReport Verified Date/Time: 08/07/2018 09:10:23 Reading Location: [facility] Radiology Reading Room POCT-GLUCOSE [id number] 07:49:00 Test Item Value Reference Range Comments POC-GLUCOSE METER (BEAKER) 165 mg/dL 70-110 TESTED AT [facility] [address] (test sgzm=4732) [facility] [address] COMPREHENSIVE METABOLIC [id number] 06:00:00 Test Item Value Reference Range Comments TOTAL PROTEIN (BEAKER) 6.0 gm/dL 6.0-8.3 (test dnay=009) ALBUMIN (BEAKER) (test 3.3 g/dL 3.5-5.0 bsul=2850) ALKALINE PHOSPHATASE 58 U/L 40-150 (BEAKER) (test zsoc=665) BILIRUBIN TOTAL (BEAKER) 0.4 mg/dL 0.2-1.2 (test ltmt=956) SODIUM (BEAKER) (test 135 meq/L 136-145 kdpc=488) POTASSIUM (BEAKER) (test 4.1 meq/L 3.5-5.1 zvor=188) CHLORIDE (BEAKER) (test 102 meq/L 98-107 kwrv=403) CO2 (BEAKER) (test 24 meq/L 22-29 qyam=285) BLOOD UREA NITROGEN 52 mg/dL 7-21 (BEAKER) (test vduo=199) CREATININE (BEAKER) (test 3.23 mg/dL 0.57-1.25 bauq=852) GLUCOSE RANDOM (BEAKER) 154 mg/dL 70-105 (test xcjz=460) CALCIUM (BEAKER) (test 8.3 mg/dL 8.4-10.2 pbnk=037) AST (SGOT) (BEAKER) (test 31 U/L 5-34 pnnr=495) ALT (SGPT) (BEAKER) (test 17 U/L 6-55 xihx=761) EGFR (BEAKER) (test 14 mL/min/1.73 sq m ESTIMATED GFR IS NOT cdtz=7741) ACCURATE CREATININE CLEARANCE IN PREDICTING GLOMERULAR FILTRATION RATE. ESTIMATED GFR IS NOT APPLICABLE FOR DIALYSIS PATIENTS. [id number] 05:56:00 Test Item Value Reference Range Comments PHOSPHORUS (BEAKER) (test qiba=229) 2.9 mg/dL 2.3-4.7 [id number] 05:56:00 Test Item Value Reference Range Comments MAGNESIUM (BEAKER) (test odvx=648) 2.0 mg/dL 1.6-2.6 CBC W/PLT COUNT & AUTO [id number] 05:42:00 Test Item Value Reference Range Comments WHITE BLOOD CELL COUNT (BEAKER) (test hixu=770) 9.6 K/ L 3.5-10.5 RED BLOOD CELL COUNT (BEAKER) (test lcoq=654) 2.84 M/ L 3.93-5.22 HEMOGLOBIN (BEAKER) (test nctp=838) 8.8 GM/DL 11.2-15.7 HEMATOCRIT (BEAKER) (test ftue=193) 27.2 % 34.1-44.9 MEAN CORPUSCULAR VOLUME (BEAKER) (test oesn=483) 95.8 fL 79.4-94.8 MEAN CORPUSCULAR HEMOGLOBIN (BEAKER) (test 31.0 pg 25.6-32.2 xfil=609) MEAN CORPUSCULAR HEMOGLOBIN CONC (BEAKER) (test 32.4 GM/DL 32.2-35.5 zwlc=384) RED CELL DISTRIBUTION WIDTH (BEAKER) (test 14.1 % 11.7-14.4 necb=349) PLATELET COUNT (BEAKER) (test zrsl=047) 218 K/CU MM 150-450 MEAN PLATELET VOLUME (BEAKER) (test fwze=752) 10.2 fL 9.4-12.3 NUCLEATED RED BLOOD CELLS (BEAKER) (test 0 /100 WBC 0-0 ganz=990) NEUTROPHILS RELATIVE PERCENT (BEAKER) (test 76 % xksx=630) LYMPHOCYTES RELATIVE PERCENT (BEAKER) (test 9 % rcif=132) MONOCYTES RELATIVE PERCENT (BEAKER) (test 12 % afvt=186) EOSINOPHILS RELATIVE PERCENT (BEAKER) (test 1 % lyvw=080) BASOPHILS RELATIVE PERCENT (BEAKER) (test 0 % opuv=271) NEUTROPHILS ABSOLUTE COUNT (BEAKER) (test 7.35 K/ L 1.56-6.13 wiye=781) LYMPHOCYTES ABSOLUTE COUNT (BEAKER) (test 0.84 K/ L 1.18-3.74 pqdh=556) MONOCYTES ABSOLUTE COUNT (BEAKER) (test 1.16 K/ L 0.24-0.36 uzyl=683) EOSINOPHILS ABSOLUTE COUNT (BEAKER) (test 0.13 K/ L 0.04-0.36 uqtm=301) BASOPHILS ABSOLUTE COUNT (BEAKER) (test 0.04 K/ L 0.01-0.08 lnwt=540) IMMATURE GRANULOCYTES-RELATIVE PERCENT (BEAKER) 1 % 0-1 (test vjrj=4153) CALCIUM, [id number] 05:32:00 Test Item Value Reference Range Comments CALCIUM IONIZED (BEAKER) (test ghaw=556) 1.12 mmol/L 1.12-1.27 PH, BLOOD (BEAKER) (test nqas=2379) 7.36 POCT-GLUCOSE [id number] 21:35:00 Test Item Value Reference Range Comments POC-GLUCOSE METER (BEAKER) 143 mg/dL 70-110 TESTED AT [address] (test bcaf=8359) [place] [id number] POCT-GLUCOSE [id number] 17:31:00 Test Item Value Reference Range Comments POC-GLUCOSE METER (BEAKER) 105 mg/dL 70-110 TESTED AT [address] (test zwlc=2908) [place] [address] POCT-GLUCOSE [id number] 12:46:00 Test Item Value Reference Range Comments POC-GLUCOSE METER (BEAKER) 159 mg/dL 70-110 TESTED AT [address] (test zlff=9238) [place] [id number] POCT-GLUCOSE [id number] 07:40:00 Test Item Value Reference Range Comments POC-GLUCOSE METER (BEAKER) 120 mg/dL 70-110 TESTED AT [address] (test pwhj=8892) [place] [address] [id number] 04:52:00 Test Item Value Reference Range Comments MAGNESIUM (BEAKER) (test rhuw=245) 1.8 mg/dL 1.6-2.6 BASIC METABOLIC [id number] 04:52:00 Test Item Value Reference Range Comments SODIUM (BEAKER) (test 137 meq/L 136-145 ggfp=618) POTASSIUM (BEAKER) (test 3.8 meq/L 3.5-5.1 buvs=261) CHLORIDE (BEAKER) (test 105 meq/L 98-107 frah=609) CO2 (BEAKER) (test 23 meq/L 22-29 vofx=449) BLOOD UREA NITROGEN 51 mg/dL 7-21 (BEAKER) (test qesc=912) CREATININE (BEAKER) (test 2.93 mg/dL 0.57-1.25 weum=861) GLUCOSE RANDOM (BEAKER) 108 mg/dL 70-105 (test jbbc=534) CALCIUM (BEAKER) (test 8.4 mg/dL 8.4-10.2 etdr=157) EGFR (BEAKER) (test 16 mL/min/1.73 sq m ESTIMATED GFR IS NOT llat=2687) ACCURATE CREATININE CLEARANCE IN PREDICTING GLOMERULAR FILTRATION RATE. ESTIMATED GFR IS NOT APPLICABLE FOR DIALYSIS PATIENTS. RAD, CHEST, 1 VIEW, NON [id number] 04:45:00Reason for exam:->SOBShould this be performed at [...] pneumothorax. In summary, no significantinterval change. Signed: Sly Frank MDReport Verified Date/Time: 08/06/2018 04:45:08 Reading Location: [address] Reading Room [id number] 04:31:00 Test Item Value Reference Range Comments PARTIAL THROMBOPLASTIN TIME (BEAKER) (test 45.7 seconds 22.5-36.0 gqdb=501) 4 hours after the start of continuous infusion and 4 hours after any rate changeCBC W/PLT COUNT & AUTO [id number] 04:23:00 Test Item Value Reference Range Comments WHITE BLOOD CELL COUNT (BEAKER) (test ksla=913) 8.8 K/ L 3.5-10.5 RED BLOOD CELL COUNT (BEAKER) (test zdsb=417) 2.95 M/ L 3.93-5.22 HEMOGLOBIN (BEAKER) (test abad=869) 9.1 GM/DL 11.2-15.7 HEMATOCRIT (BEAKER) (test snlb=245) 27.9 % 34.1-44.9 MEAN CORPUSCULAR VOLUME (BEAKER) (test opls=389) 94.6 fL 79.4-94.8 MEAN CORPUSCULAR HEMOGLOBIN (BEAKER) (test 30.8 pg 25.6-32.2 esoy=301) MEAN CORPUSCULAR HEMOGLOBIN CONC (BEAKER) (test 32.6 GM/DL 32.2-35.5 usje=611) RED CELL DISTRIBUTION WIDTH (BEAKER) (test 13.4 % 11.7-14.4 kbid=771) PLATELET COUNT (BEAKER) (test yecf=389) 223 K/CU MM 150-450 MEAN PLATELET VOLUME (BEAKER) (test eytt=414) 10.0 fL 9.4-12.3 NUCLEATED RED BLOOD CELLS (BEAKER) (test 0 /100 WBC 0-0 rtty=117) NEUTROPHILS RELATIVE PERCENT (BEAKER) (test 75 % eikw=615) LYMPHOCYTES RELATIVE PERCENT (BEAKER) (test 12 % djox=549) MONOCYTES RELATIVE PERCENT (BEAKER) (test 10 % tegq=041) EOSINOPHILS RELATIVE PERCENT (BEAKER) (test 2 % nzqv=190) BASOPHILS RELATIVE PERCENT (BEAKER) (test 0 % zmdb=883) NEUTROPHILS ABSOLUTE COUNT (BEAKER) (test 6.55 K/ L 1.56-6.13 xumj=775) LYMPHOCYTES ABSOLUTE COUNT (BEAKER) (test 1.08 K/ L 1.18-3.74 gbam=526) MONOCYTES ABSOLUTE COUNT (BEAKER) (test 0.89 K/ L 0.24-0.36 rwek=732) EOSINOPHILS ABSOLUTE COUNT (BEAKER) (test 0.16 K/ L 0.04-0.36 wrns=544) BASOPHILS ABSOLUTE COUNT (BEAKER) (test 0.03 K/ L 0.01-0.08 onvu=003) IMMATURE GRANULOCYTES-RELATIVE PERCENT (BEAKER) 1 % 0-1 (test yeir=1726) POCT-GLUCOSE [id number] 21:47:00 Test Item Value Reference Range Comments POC-GLUCOSE METER (BEAKER) 184 mg/dL 70-110 TESTED AT [address] (test jnbs=4371) [facility] [address] POCT-GLUCOSE [id number] 17:15:00 Test Item Value Reference Range Comments POC-GLUCOSE METER (BEAKER) 120 mg/dL 70-110 TESTED AT [address] (test hzeg=8503) [facility] [address] POCT-GLUCOSE [id number] 12:00:00 Test Item Value Reference Range Comments POC-GLUCOSE METER (BEAKER) 226 mg/dL 70-110 TESTED AT [address] (test xvfo=7844) [facility] [address] POCT-GLUCOSE [id number] 07:45:00 Test Item Value Reference Range Comments POC-GLUCOSE METER (BEAKER) 192 mg/dL 70-110 TESTED AT [address] (test vrix=5001) [facility] [address] RAD, CHEST, 1 VIEW, NON [id number] 07:45:00Reason for exam:->SOBShould this be performed at [...] Verified Date/Time: 08/05/2018 07:45: 53 Reading Location: [facility] C013V Neuro Reading Room [id number] 06:25:00 Test Item Value Reference Range Comments MAGNESIUM (BEAKER) (test rvad=851) 1.8 mg/dL 1.6-2.6 BASIC METABOLIC [id number] 06:25:00 Test Item Value Reference Range Comments SODIUM (BEAKER) (test 138 meq/L 136-145 jvkm=631) POTASSIUM (BEAKER) (test 3.9 meq/L 3.5-5.1 tlkg=108) CHLORIDE (BEAKER) (test 107 meq/L 98-107 mqfc=838) CO2 (BEAKER) (test 23 meq/L 22-29 lsak=653) BLOOD UREA NITROGEN 53 mg/dL 7-21 (BEAKER) (test jbwi=884) CREATININE (BEAKER) (test 2.79 mg/dL 0.57-1.25 cmpk=486) GLUCOSE RANDOM (BEAKER) 134 mg/dL 70-105 (test wlfv=452) CALCIUM (BEAKER) (test 8.3 mg/dL 8.4-10.2 fcdq=561) EGFR (BEAKER) (test 16 mL/min/1.73 sq m ESTIMATED GFR IS NOT ygwa=0242) ACCURATE CREATININE CLEARANCE IN PREDICTING GLOMERULAR FILTRATION RATE. ESTIMATED GFR IS NOT APPLICABLE FOR DIALYSIS PATIENTS. CBC W/PLT COUNT & AUTO [id number] 05:59:00 Test Item Value Reference Range Comments WHITE BLOOD CELL COUNT (BEAKER) (test lhlv=304) 8.1 K/ L 3.5-10.5 RED BLOOD CELL COUNT (BEAKER) (test yipj=714) 3.09 M/ L 3.93-5.22 HEMOGLOBIN (BEAKER) (test plvf=649) 9.5 GM/DL 11.2-15.7 HEMATOCRIT (BEAKER) (test aufn=797) 30.1 % 34.1-44.9 MEAN CORPUSCULAR VOLUME (BEAKER) (test clys=252) 97.4 fL 79.4-94.8 MEAN CORPUSCULAR HEMOGLOBIN (BEAKER) (test 30.7 pg 25.6-32.2 pjpv=840) MEAN CORPUSCULAR HEMOGLOBIN CONC (BEAKER) (test 31.6 GM/DL 32.2-35.5 gwzr=798) RED CELL DISTRIBUTION WIDTH (BEAKER) (test 13.5 % 11.7-14.4 wwbu=515) PLATELET COUNT (BEAKER) (test wyra=375) 172 K/CU MM 150-450 MEAN PLATELET VOLUME (BEAKER) (test dsqa=535) 10.1 fL 9.4-12.3 NUCLEATED RED BLOOD CELLS (BEAKER) (test 0 /100 WBC 0-0 nrql=185) NEUTROPHILS RELATIVE PERCENT (BEAKER) (test 75 % gtwa=157) LYMPHOCYTES RELATIVE PERCENT (BEAKER) (test 12 % ldgy=900) MONOCYTES RELATIVE PERCENT (BEAKER) (test 11 % zans=671) EOSINOPHILS RELATIVE PERCENT (BEAKER) (test 2 % xccu=347) BASOPHILS RELATIVE PERCENT (BEAKER) (test 0 % uliy=687) NEUTROPHILS ABSOLUTE COUNT (BEAKER) (test 6.06 K/ L 1.56-6.13 bvho=718) LYMPHOCYTES ABSOLUTE COUNT (BEAKER) (test 0.95 K/ L 1.18-3.74 vitr=910) MONOCYTES ABSOLUTE COUNT (BEAKER) (test 0.85 K/ L 0.24-0.36 tcbr=974) EOSINOPHILS ABSOLUTE COUNT (BEAKER) (test 0.13 K/ L 0.04-0.36 prhf=970) BASOPHILS ABSOLUTE COUNT (BEAKER) (test 0.03 K/ L 0.01-0.08 wfle=874) IMMATURE GRANULOCYTES-RELATIVE PERCENT (BEAKER) 1 % 0-1 (test ghrt=9814) POCT-GLUCOSE [id number] 22:07:00 Test Item Value Reference Range Comments POC-GLUCOSE METER (BEAKER) 183 mg/dL 70-110 TESTED AT [address] (test eeca=3979) [place] [address] POCT-GLUCOSE [id number] 18:23:00 Test Item Value Reference Range Comments POC-GLUCOSE METER (BEAKER) 174 mg/dL 70-110 TESTED AT [address] (test siip=1460) [place] [address] C. DIFFICILE GDH [id number] 15:36:00 Test Item Value Reference Range Comments CDT TOXIN (test Negative Negative iqvf=[id number]) CDT GDH ANTIGEN (test Positive Negative C. difficile present but toxin cbij=[id number]) not detected. Indicates colonization with non-toxigenic strain or level of toxin below detectable levels. No need for enteric isolation. Treatment is rarely needed (only when strong clinical suspicion for Clostridium difficile infection) Testing performed by [employer] Rapid Cassette Assay. For GDH, published sensitivity of the assay is 98.7% compared to cytotoxicity testing. For Toxin AB, published sensitivity is 87.8% and specificity 99.4% compared to cytotoxicity testing.Verification of kit performance was done by the [facility] Microbiology Lab prior to clinical use.URINALYSIS W/ REFLEX URINE [id number] 15:18:00 Test Item Value Reference Range Comments COLOR (BEAKER) (test favp=939) Yellow CLARITY (BEAKER) (test pram=186) Hazy SPECIFIC GRAVITY UA (BEAKER) (test ekzu=368) 1.017 1.001-1.035 PH UA (BEAKER) (test viif=829) 5.5 5.0-8.0 PROTEIN UA (BEAKER) (test ruot=835) 30 mg/dL Negative GLUCOSE UA (BEAKER) (test qyvy=143) Negative Negative KETONES UA (BEAKER) (test wnsh=576) Negative Negative BILIRUBIN UA (BEAKER) (test egoi=571) Negative Negative BLOOD UA (BEAKER) (test pczp=534) Trace Negative NITRITE UA (BEAKER) (test ngjl=272) Negative Negative LEUKOCYTE ESTERASE UA (BEAKER) (test gnhj=846) Large Negative UROBILINOGEN UA (BEAKER) (test oytr=965) 0.2 mg/dL 0.2-1.0 RBC UA (BEAKER) (test bwqi=439) 0 /HPF WBC UA (BEAKER) (test uomi=690) 190 /HPF BACTERIA (BEAKER) (test bvpf=140) Many MUCUS (BEAKER) (test vxtn=6282) Rare SQUAMOUS EPITHELIAL (BEAKER) (test xwzp=356) 1 /HPF HYALINE CASTS (BEAKER) (test cksx=016) 4 /LPF SOURCE(BEAKER) (test rknr=0735) POCT-GLUCOSE [id number] 13:03:00 Test Item Value Reference Range Comments POC-GLUCOSE METER (BEAKER) 213 mg/dL 70-110 TESTED AT [facility] [address] (test xflq=0579) [facility] [address] OCCULT BLOOD, [id number] 11:58:00 Test Item Value Reference Range Comments FECAL OCCULT BLOOD (BEAKER) (test ggak=166) Positive Negative POCT-GLUCOSE [id number] 08:00:00 Test Item Value Reference Range Comments POC-GLUCOSE METER (BEAKER) 127 mg/dL 70-110 TESTED AT [facility] [address] (test sgwc=9545) [facility] [address] TROPONIN [id number] 07:07:00 Test Item Value Reference Range Comments TROPONIN I (BEAKER) (test cgmv=546) 44.85 ng/mL 0.00-0.03 Troponin I (TnI) levels [...] and persistent tachyarrhythmia.RAD, CHEST, 1 VIEW, NON [id number] 07:00:00Reason for exam:->SOBShould this be performed at [...] contours.Additional findings: None. Signed: JR Mary, Radha Alejo Verified Date/Time: 08/04/2018 07:00: 06 Reading Location: [address] Neuro Reading Room COMPREHENSIVE METABOLIC [id number] 06:56:00 Test Item Value Reference Range Comments TOTAL PROTEIN (BEAKER) 5.7 gm/dL 6.0-8.3 (test qhzo=687) ALBUMIN (BEAKER) (test 3.2 g/dL 3.5-5.0 xmel=4905) ALKALINE PHOSPHATASE 55 U/L 40-150 (BEAKER) (test fizr=613) BILIRUBIN TOTAL (BEAKER) 0.5 mg/dL 0.2-1.2 (test yies=696) SODIUM (BEAKER) (test 138 meq/L 136-145 nsjl=498) POTASSIUM (BEAKER) (test 3.7 meq/L 3.5-5.1 hmmx=481) CHLORIDE (BEAKER) (test 107 meq/L 98-107 dcrk=901) CO2 (BEAKER) (test 24 meq/L 22-29 riou=578) BLOOD UREA NITROGEN 61 mg/dL 7-21 (BEAKER) (test teoe=183) CREATININE (BEAKER) (test 2.88 mg/dL 0.57-1.25 afgd=681) GLUCOSE RANDOM (BEAKER) 122 mg/dL 70-105 (test qbzs=010) CALCIUM (BEAKER) (test 8.1 mg/dL 8.4-10.2 doyt=584) AST (SGOT) (BEAKER) (test 71 U/L 5-34 vuhb=653) ALT (SGPT) (BEAKER) (test 23 U/L 6-55 bpci=652) EGFR (BEAKER) (test 16 mL/min/1.73 sq m ESTIMATED GFR IS NOT sozk=2527) ACCURATE CREATININE CLEARANCE IN PREDICTING GLOMERULAR FILTRATION RATE. ESTIMATED GFR IS NOT APPLICABLE FOR DIALYSIS PATIENTS. [id number] 06:55:00 Test Item Value Reference Range Comments PHOSPHORUS (BEAKER) (test nmzo=863) 2.8 mg/dL 2.3-4.7 [id number] 06:55:00 Test Item Value Reference Range Comments MAGNESIUM (BEAKER) (test czfg=410) 1.9 mg/dL 1.6-2.6 CBC W/PLT COUNT & AUTO [id number] 06:12:00 Test Item Value Reference Range Comments WHITE BLOOD CELL COUNT (BEAKER) (test cxzy=158) 10.1 K/ L 3.5-10.5 RED BLOOD CELL COUNT (BEAKER) (test drsj=121) 3.03 M/ L 3.93-5.22 HEMOGLOBIN (BEAKER) (test ongb=806) 9.3 GM/DL 11.2-15.7 HEMATOCRIT (BEAKER) (test tgsx=321) 28.5 % 34.1-44.9 MEAN CORPUSCULAR VOLUME (BEAKER) (test rumc=687) 94.1 fL 79.4-94.8 MEAN CORPUSCULAR HEMOGLOBIN (BEAKER) (test 30.7 pg 25.6-32.2 pgjy=201) MEAN CORPUSCULAR HEMOGLOBIN CONC (BEAKER) (test 32.6 GM/DL 32.2-35.5 fegb=965) RED CELL DISTRIBUTION WIDTH (BEAKER) (test 13.4 % 11.7-14.4 zfwj=809) PLATELET COUNT (BEAKER) (test blvo=812) 151 K/CU MM 150-450 MEAN PLATELET VOLUME (BEAKER) (test sguo=268) 10.5 fL 9.4-12.3 NUCLEATED RED BLOOD CELLS (BEAKER) (test 0 /100 WBC 0-0 uxxo=291) NEUTROPHILS RELATIVE PERCENT (BEAKER) (test 77 % cqhg=640) LYMPHOCYTES RELATIVE PERCENT (BEAKER) (test 11 % mbfq=463) MONOCYTES RELATIVE PERCENT (BEAKER) (test 11 % cumk=021) EOSINOPHILS RELATIVE PERCENT (BEAKER) (test 1 % uxlh=472) BASOPHILS RELATIVE PERCENT (BEAKER) (test 0 % odhe=322) NEUTROPHILS ABSOLUTE COUNT (BEAKER) (test 7.78 K/ L 1.56-6.13 jsfv=802) LYMPHOCYTES ABSOLUTE COUNT (BEAKER) (test 1.08 K/ L 1.18-3.74 iadr=094) MONOCYTES ABSOLUTE COUNT (BEAKER) (test 1.09 K/ L 0.24-0.36 lvvv=020) EOSINOPHILS ABSOLUTE COUNT (BEAKER) (test 0.07 K/ L 0.04-0.36 wlgy=790) BASOPHILS ABSOLUTE COUNT (BEAKER) (test 0.02 K/ L 0.01-0.08 nkbt=682) IMMATURE GRANULOCYTES-RELATIVE PERCENT (BEAKER) 1 % 0-1 (test htcp=3356) CALCIUM, [id number] 05:58:00 Test Item Value Reference Range Comments CALCIUM IONIZED (BEAKER) (test zulz=489) 1.11 mmol/L 1.12-1.27 PH, BLOOD (BEAKER) (test dxdf=5158) 7.38 POCT-GLUCOSE [id number] 22:08:00 Test Item Value Reference Range Comments POC-GLUCOSE METER (BEAKER) 163 mg/dL 70-110 TESTED AT [facility] [address] (test pycn=9132) [facility] [address] POCT-GLUCOSE [id number] 18:05:00 Test Item Value Reference Range Comments POC-GLUCOSE METER (BEAKER) 215 mg/dL 70-110 TESTED AT [facility] [address] (test xwmc=8947) [facility] [address] POCT-GLUCOSE [id number] 12:33:00 Test Item Value Reference Range Comments POC-GLUCOSE METER (BEAKER) 287 mg/dL 70-110 TESTED AT [facility] [address] (test trwe=6328) [facility] [address] TROPONIN [id number] 10:28:00 Test Item Value Reference Range Comments TROPONIN I (BEAKER) (test uiqj=703) 56.87 ng/mL 0.00-0.03 Troponin I (TnI) levels [...] Range Comments CREATINE KINASE TOTAL (BEAKER) (test ypmw=072) 601 U/L 29-200 RAD, CHEST, 1 VIEW, NON [id number] 08:51:00Reason for exam:->SOBShould this be performed at [...] no significant change since 08/02/2018. Signed : Likhari, Gauruv MDReport Verified Date/Time: 08/03/2018 08:51:22 Reading Location: [facility] [place] Reading Room [id number] 03:08:00 Test Item Value Reference Range Comments FERRITIN (BEAKER) (test hutt=526) 207 ng/mL 5-275 VITAMIN B12 AND [id number] 03:08:00 Test Item Value Reference Range Comments VITAMIN B12 (BEAKER) (test vinx=712) 212 pg/mL 213-816 FOLATE (BEAKER) (test gphz=562) 15.1 ng/mL >=7.0 COMPREHENSIVE METABOLIC [id number] 02:38:00 Test Item Value Reference Range Comments TOTAL PROTEIN (BEAKER) 5.7 gm/dL 6.0-8.3 (test oymt=709) ALBUMIN (BEAKER) (test 3.2 g/dL 3.5-5.0 ugpy=8926) ALKALINE PHOSPHATASE 55 U/L 40-150 (BEAKER) (test wlpq=162) BILIRUBIN TOTAL (BEAKER) 0.5 mg/dL 0.2-1.2 (test upvc=654) SODIUM (BEAKER) (test 139 meq/L 136-145 tuhc=383) POTASSIUM (BEAKER) (test 4.6 meq/L 3.5-5.1 nnhz=887) CHLORIDE (BEAKER) (test 107 meq/L 98-107 rfcv=142) CO2 (BEAKER) (test 24 meq/L 22-29 btoe=839) BLOOD UREA NITROGEN 63 mg/dL 7-21 (BEAKER) (test jmjd=568) CREATININE (BEAKER) (test 2.96 mg/dL 0.57-1.25 hyoe=793) GLUCOSE RANDOM (BEAKER) 205 mg/dL 70-105 (test qntw=941) CALCIUM (BEAKER) (test 8.7 mg/dL 8.4-10.2 vmec=317) AST (SGOT) (BEAKER) (test 138 U/L 5-34 ntse=329) ALT (SGPT) (BEAKER) (test 28 U/L 6-55 rnxz=352) EGFR (BEAKER) (test 15 mL/min/1.73 sq m ESTIMATED GFR IS NOT tkwa=0300) ACCURATE CREATININE CLEARANCE IN PREDICTING GLOMERULAR FILTRATION RATE. ESTIMATED GFR IS NOT APPLICABLE FOR DIALYSIS PATIENTS. [id number] 02:34:00 Test Item Value Reference Range Comments PHOSPHORUS (BEAKER) (test gmas=214) 4.7 mg/dL 2.3-4.7 [id number] 02:34:00 Test Item Value Reference Range Comments MAGNESIUM (BEAKER) (test mfkb=718) 2.0 mg/dL 1.6-2.6 IRON, TIBC, % SAT. (WITHOUT FERRITIN)2018-08-03 02:34:00 Test Item Value Reference Range Comments IRON (BEAKER) (test kjnc=247) 27.0 ug/dL 40.0-160.0 TOTAL IRON BINDING CAPACITY (BEAKER) (test 221 ug/dL 250-450 hcdq=801) IRON % SATURATION (2) (BEAKER) (test gsav=9078) 12 % 20-55 CALCIUM, [id number] 02:26:00 Test Item Value Reference Range Comments CALCIUM IONIZED (BEAKER) (test rzvj=970) 1.12 mmol/L 1.12-1.27 PH, BLOOD (BEAKER) (test xtrv=1047) 7.27 CBC W/PLT COUNT & AUTO [id number] 02:20:00 Test Item Value Reference Range Comments WHITE BLOOD CELL COUNT (BEAKER) (test wzxo=071) 12.5 K/ L 3.5-10.5 RED BLOOD CELL COUNT (BEAKER) (test darc=818) 3.39 M/ L 3.93-5.22 HEMOGLOBIN (BEAKER) (test ihwm=100) 10.4 GM/DL 11.2-15.7 HEMATOCRIT (BEAKER) (test bpbv=086) 32.5 % 34.1-44.9 MEAN CORPUSCULAR VOLUME (BEAKER) (test ztyb=022) 95.9 fL 79.4-94.8 MEAN CORPUSCULAR HEMOGLOBIN (BEAKER) (test 30.7 pg 25.6-32.2 zykr=079) MEAN CORPUSCULAR HEMOGLOBIN CONC (BEAKER) (test 32.0 GM/DL 32.2-35.5 lyox=390) RED CELL DISTRIBUTION WIDTH (BEAKER) (test 13.6 % 11.7-14.4 opmc=477) PLATELET COUNT (BEAKER) (test lika=229) 155 K/CU MM 150-450 MEAN PLATELET VOLUME (BEAKER) (test xwhp=093) 10.4 fL 9.4-12.3 NUCLEATED RED BLOOD CELLS (BEAKER) (test 0 /100 WBC 0-0 ubzt=075) NEUTROPHILS RELATIVE PERCENT (BEAKER) (test 83 % ezof=448) LYMPHOCYTES RELATIVE PERCENT (BEAKER) (test 8 % letm=328) MONOCYTES RELATIVE PERCENT (BEAKER) (test 9 % wcwq=051) EOSINOPHILS RELATIVE PERCENT (BEAKER) (test 0 % jqri=676) BASOPHILS RELATIVE PERCENT (BEAKER) (test 0 % cetj=763) NEUTROPHILS ABSOLUTE COUNT (BEAKER) (test 10.32 K/ L 1.56-6.13 fhbp=211) LYMPHOCYTES ABSOLUTE COUNT (BEAKER) (test 1.01 K/ L 1.18-3.74 psld=510) MONOCYTES ABSOLUTE COUNT (BEAKER) (test 1.07 K/ L 0.24-0.36 akwr=753) EOSINOPHILS ABSOLUTE COUNT (BEAKER) (test 0.01 K/ L 0.04-0.36 ejbu=658) BASOPHILS ABSOLUTE COUNT (BEAKER) (test 0.03 K/ L 0.01-0.08 iosk=182) IMMATURE GRANULOCYTES-RELATIVE PERCENT (BEAKER) 1 % 0-1 (test dkjx=0219) RETICULOCYTE [id number] 02:16:00 Test Item Value Reference Range Comments RETICULOCYTE COUNT PCT (BEAKER) (test ycqn=022) 2.7 % 0.5-1.7 POCT-GLUCOSE [id number] 01:12:00 Test Item Value Reference Range Comments POC-GLUCOSE METER (BEAKER) 239 mg/dL 70-110 TESTED AT [address] (test feci=5920) [facility] [address] POCT-GLUCOSE [id number] 20:38:00 Test Item Value Reference Range Comments POC-GLUCOSE METER (BEAKER) 207 mg/dL 70-110 TESTED AT [address] (test rfno=7313) [facility] [address] POCT-GLUCOSE [id number] 16:39:00 Test Item Value Reference Range Comments POC-GLUCOSE METER (BEAKER) 216 mg/dL 70-110 TESTED AT [address] (test jetd=9609) [facility] [address] [id number] 12:20:00 Test Item Value Reference Range Comments PARTIAL THROMBOPLASTIN TIME (BEAKER) (test 36.6 seconds 22.5-36.0 kkad=125) 4 hours after the start of continuous infusion and 4 hours after any rate changePOCT-GLUCOSE [id number] 12:03:00 Test Item Value Reference Range Comments POC-GLUCOSE METER (BEAKER) 206 mg/dL 70-110 TESTED AT [address] (test azvh=2267) [place] [id number] POCT-GLUCOSE [id number] 12:03:00 Test Item Value Reference Range Comments POC-GLUCOSE METER (BEAKER) 193 mg/dL 70-110 TESTED AT [address] (test avco=6040) [facility] [address] POCT-GLUCOSE [id number] 12:02:00 Test Item Value Reference Range Comments POC-GLUCOSE METER (BEAKER) 234 mg/dL 70-110 TESTED AT [address] (test wirw=5885) [facility] [address] POCT-GLUCOSE [id number] 12:02:00 Test Item Value Reference Range Comments POC-GLUCOSE METER (BEAKER) 211 mg/dL 70-110 TESTED AT [address] (test wddr=3173) [facility] [address] U/S, RENAL, [id number] 08:45:00Reason for exam:->CKDFINAL REPORT TECHNIQUE: Grayscale ultrasound [...] Verified Date/Time: 08/02/2018 08: 45:50 Reading Location: [address] Radiology Reading Room Electronically signedby: ROB NAVARRO MD on 08/02/2018 08:45 AMPOCT-GLUCOSE [id number] 08:25:00 Test Item Value Reference Range Comments POC-GLUCOSE METER (BEAKER) 237 mg/dL 70-110 TESTED AT [address] (test eurq=9024) [facility] [address] [id number] 08:19:00 Test Item Value Reference Range Comments PARTIAL THROMBOPLASTIN TIME (BEAKER) (test 38.2 seconds 22.5-36.0 gzrz=831) 4 hours after the start of continuous infusion and 4 hours after any rate changePOCT-GLUCOSE [id number] 07:14:00 Test Item Value Reference Range Comments POC-GLUCOSE METER (BEAKER) 246 mg/dL 70-110 TESTED AT [address] (test vcjb=9156) [facility] [address] COMPREHENSIVE METABOLIC [id number] 04:58:00 Test Item Value Reference Range Comments TOTAL PROTEIN (BEAKER) 5.5 gm/dL 6.0-8.3 Specimen slightly (test oqjj=481) hemolyzed ALBUMIN (BEAKER) (test 3.1 g/dL 3.5-5.0 Specimen slightly ndyk=4239) hemolyzed ALKALINE PHOSPHATASE 54 U/L 40-150 (BEAKER) (test pbmd=917) BILIRUBIN TOTAL (BEAKER) 0.7 mg/dL 0.2-1.2 Specimen slightly (test aert=699) hemolyzed SODIUM (BEAKER) (test 135 meq/L 136-145 ltni=006) POTASSIUM (BEAKER) (test 4.8 meq/L 3.5-5.1 Specimen slightly bfqk=562) hemolyzed CHLORIDE (BEAKER) (test 108 meq/L 98-107 kaeg=226) CO2 (BEAKER) (test 18 meq/L 22-29 ojkn=218) BLOOD UREA NITROGEN 57 mg/dL 7-21 (BEAKER) (test bjcc=480) CREATININE (BEAKER) (test 2.27 mg/dL 0.57-1.25 Specimen slightly ooum=143) hemolyzed GLUCOSE RANDOM (BEAKER) 289 mg/dL 70-105 (test zthu=619) CALCIUM (BEAKER) (test 8.6 mg/dL 8.4-10.2 cyvh=276) AST (SGOT) (BEAKER) (test 94 U/L 5-34 Specimen slightly zust=663) hemolyzed ALT (SGPT) (BEAKER) (test 20 U/L 6-55 Specimen slightly zudr=853) hemolyzed EGFR (BEAKER) (test 21 mL/min/1.73 sq m ESTIMATED GFR IS NOT wgec=8459) ACCURATE CREATININE CLEARANCE IN PREDICTING GLOMERULAR FILTRATION RATE. ESTIMATED GFR IS NOT APPLICABLE FOR DIALYSIS PATIENTS. [id number] 04:52:00 Test Item Value Reference Range Comments PARTIAL THROMBOPLASTIN TIME (BEAKER) (test 37.5 seconds 22.5-36.0 dzcx=668) 4 hours after the start of continuous infusion and 4 hours after any rate changeRAD, CHEST, 1 VIEW, NON [id number] 04:44:00Reason for exam:-> impella positionShould this be [...] cardiomediastinal contour. Additional findings: None. Signed: Ochoa Fry MDReport Verified Date/Time: 08/02/2018 04:44:47 B-TYPE NATRIURETIC FACTOR (BNP) 2018-08-02 04:41:00 Test Item Value Reference Range Comments B-TYPE NATRIURETIC PEPTIDE (BEAKER) (test 1452 pg/mL 0-100 essu=090) [id number] 04:40:00 Test Item Value Reference Range Comments MAGNESIUM (BEAKER) (test 2.0 mg/dL 1.6-2.6 Specimen slightly hemolyzed nler=475) [id number] 04:40:00 Test Item Value Reference Range Comments PHOSPHORUS (BEAKER) (test 4.7 mg/dL 2.3-4.7 Specimen slightly hemolyzed ovpl=419) URIC [id number] 04:40:00 Test Item Value Reference Range Comments URIC ACID (BEAKER) (test 9.1 mg/dL 2.6-7.2 Specimen slightly hemolyzed wsrt=554) LACTIC ACID, [id number] 04:31:00 Test Item Value Reference Range Comments LACTATE BLOOD ARTERIAL (2) 0.9 mmol/L 0.5-2.2 Specimen slightly hemolyzed (BEAKER) (test upxc=6409) BLOOD GAS, [id number] 04:25:00 Test Item Value Reference Range Comments PH ARTERIAL (BEAKER) (test mnpq=167) 7.31 7.35-7.45 PCO2 ARTERIAL (BEAKER) (test kiwc=366) 40 mmHg 35-45 PO2 ARTERIAL (BEAKER) (test umsy=970) 90 mmHg 80-90 O2 SATURATION ARTERIAL (BEAKER) (test gpao=629) 96.3 % 96.0-97.0 HCO3 ARTERIAL (BEAKER) (test fdnh=362) 20 mmol/L 21-29 BASE EXCESS ARTERIAL (BEAKER) (test lfqs=090) -6.1 mmol/L -2.0-3.0 PATIENT TEMPERATURE (BEAKER) (test exkx=7271) 36.7 C FIO2 (BEAKER) (test hcwj=7268) 36.0 % GLUCOSE-STAT [id number] 04:25:00 Test Item Value Reference Range Comments GLUCOSE RANDOM (BEAKER) (test bzpq=342) 272 mg/dL 70-110 HGB/HCT (H&H) - STAT [id number] 04:25:00 Test Item Value Reference Range Comments HEMOGLOBIN (BEAKER) (test jlje=658) 10.9 g/dL 12.0-15.0 HEMATOCRIT (BEAKER) (test nouw=334) 32.0 % 36.0-45.0 CBC W/PLT COUNT & AUTO [id number] 04:24:00 Test Item Value Reference Range Comments WHITE BLOOD CELL COUNT (BEAKER) (test geay=286) 14.8 K/ L 3.5-10.5 RED BLOOD CELL COUNT (BEAKER) (test lmec=843) 3.43 M/ L 3.93-5.22 HEMOGLOBIN (BEAKER) (test deyn=173) 10.3 GM/DL 11.2-15.7 HEMATOCRIT (BEAKER) (test ajsu=700) 32.3 % 34.1-44.9 MEAN CORPUSCULAR VOLUME (BEAKER) (test pqim=319) 94.2 fL 79.4-94.8 MEAN CORPUSCULAR HEMOGLOBIN (BEAKER) (test 30.0 pg 25.6-32.2 rrva=187) MEAN CORPUSCULAR HEMOGLOBIN CONC (BEAKER) (test 31.9 GM/DL 32.2-35.5 yxcf=948) RED CELL DISTRIBUTION WIDTH (BEAKER) (test 13.2 % 11.7-14.4 jtxv=173) PLATELET COUNT (BEAKER) (test gixy=225) 171 K/CU MM 150-450 MEAN PLATELET VOLUME (BEAKER) (test vmyr=307) 10.1 fL 9.4-12.3 NUCLEATED RED BLOOD CELLS (BEAKER) (test 0 /100 WBC 0-0 hdpv=018) NEUTROPHILS RELATIVE PERCENT (BEAKER) (test 84 % gzxz=683) LYMPHOCYTES RELATIVE PERCENT (BEAKER) (test 9 % srgi=332) MONOCYTES RELATIVE PERCENT (BEAKER) (test 7 % mwdv=848) EOSINOPHILS RELATIVE PERCENT (BEAKER) (test 0 % sdij=571) BASOPHILS RELATIVE PERCENT (BEAKER) (test 0 % lbvt=688) NEUTROPHILS ABSOLUTE COUNT (BEAKER) (test 12.38 K/ L 1.56-6.13 ztwh=390) LYMPHOCYTES ABSOLUTE COUNT (BEAKER) (test 1.30 K/ L 1.18-3.74 zkvz=713) MONOCYTES ABSOLUTE COUNT (BEAKER) (test 1.04 K/ L 0.24-0.36 pzfd=885) EOSINOPHILS ABSOLUTE COUNT (BEAKER) (test 0.00 K/ L 0.04-0.36 mcbb=142) BASOPHILS ABSOLUTE COUNT (BEAKER) (test 0.02 K/ L 0.01-0.08 tqtd=822) IMMATURE GRANULOCYTES-RELATIVE PERCENT (BEAKER) 1 % 0-1 (test oluh=0358) CALCIUM, [id number] 04:22:00 Test Item Value Reference Range Comments CALCIUM IONIZED (BEAKER) (test odzi=529) 1.20 mmol/L 1.12-1.27 PH, BLOOD (BEAKER) (test ssat=9617) 7.31 SODIUM NA-STAT [id number] 04:21:00 Test Item Value Reference Range Comments SODIUM (BEAKER) (test oesc=272) 136 meq/L 135-148 POTASSIUM-STAT [id number] 04:21:00 Test Item Value Reference Range Comments POTASSIUM (BEAKER) (test hiva=220) 4.6 meq/L 3.6-5.5 LACTIC ACID, [id number] 00:13:00 Test Item Value Reference Range Comments LACTATE BLOOD ARTERIAL (2) (BEAKER) (test 0.7 mmol/L 0.5-2.2 wtxm=3715) SODIUM NA-STAT [id number] 23:59:00 Test Item Value Reference Range Comments SODIUM (BEAKER) (test whuy=318) 136 meq/L 135-148 POTASSIUM-STAT [id number] 23:59:00 Test Item Value Reference Range Comments POTASSIUM (BEAKER) (test fbjt=414) 4.8 meq/L 3.6-5.5 BLOOD GAS, [id number] 23:59:00 Test Item Value Reference Range Comments PH ARTERIAL (BEAKER) (test qdwe=653) 7.31 7.35-7.45 PCO2 ARTERIAL (BEAKER) (test ungf=097) 42 mmHg 35-45 PO2 ARTERIAL (BEAKER) (test mbgu=917) 78 mmHg 80-90 O2 SATURATION ARTERIAL (BEAKER) (test dszv=215) 94.7 % 96.0-97.0 HCO3 ARTERIAL (BEAKER) (test hmdc=083) 21 mmol/L 21-29 BASE EXCESS ARTERIAL (BEAKER) (test kpsw=178) -5.2 mmol/L -2.0-3.0 PATIENT TEMPERATURE (BEAKER) (test twui=8366) 36.7 C FIO2 (BEAKER) (test eiwy=9225) 36.0 % GLUCOSE-STAT [id number] 23:59:00 Test Item Value Reference Range Comments GLUCOSE RANDOM (BEAKER) (test ljgu=669) 275 mg/dL 70-110 HGB/HCT (H&H) - STAT [id number] 23:59:00 Test Item Value Reference Range Comments HEMOGLOBIN (BEAKER) (test dlrh=527) 11.3 g/dL 12.0-15.0 HEMATOCRIT (BEAKER) (test gyyf=644) 33.0 % 36.0-45.0 [id number] 21:53:00 Test Item Value Reference Range Comments PARTIAL THROMBOPLASTIN TIME (BEAKER) (test 63.4 seconds 22.5-36.0 isrx=764) 4 hours after the start of continuous infusion and 4 hours after any rate changeCOMPREHENSIVE METABOLIC [id number] 19:43:00 Test Item Value Reference Range Comments TOTAL PROTEIN (BEAKER) 5.8 gm/dL 6.0-8.3 Specimen slightly (test vhoh=700) hemolyzed ALBUMIN (BEAKER) (test 3.3 g/dL 3.5-5.0 Specimen slightly flwj=6865) hemolyzed ALKALINE PHOSPHATASE 57 U/L 40-150 (BEAKER) (test udsr=298) BILIRUBIN TOTAL (BEAKER) 0.9 mg/dL 0.2-1.2 Specimen slightly (test xvam=345) hemolyzed SODIUM (BEAKER) (test 137 meq/L 136-145 xuiv=890) POTASSIUM (BEAKER) (test 4.8 meq/L 3.5-5.1 Specimen slightly jprh=721) hemolyzed CHLORIDE (BEAKER) (test 109 meq/L 98-107 hcus=516) CO2 (BEAKER) (test 20 meq/L 22-29 fivh=437) BLOOD UREA NITROGEN 56 mg/dL 7-21 (BEAKER) (test zpos=843) CREATININE (BEAKER) (test 2.26 mg/dL 0.57-1.25 Specimen slightly zswi=027) hemolyzed GLUCOSE RANDOM (BEAKER) 235 mg/dL 70-105 (test zgmi=763) CALCIUM (BEAKER) (test 9.2 mg/dL 8.4-10.2 ewbf=561) AST (SGOT) (BEAKER) (test 27 U/L 5-34 Specimen slightly kgng=152) hemolyzed ALT (SGPT) (BEAKER) (test 13 U/L 6-55 Specimen slightly xwbe=878) hemolyzed EGFR (BEAKER) (test 21 mL/min/1.73 sq m ESTIMATED GFR IS NOT bemz=0458) ACCURATE CREATININE CLEARANCE IN PREDICTING GLOMERULAR FILTRATION RATE. ESTIMATED GFR IS NOT APPLICABLE FOR DIALYSIS PATIENTS. Call k > 5, [id number] 19:41:00 Test Item Value Reference Range Comments SODIUM (BEAKER) (test qcng=165) 137 meq/L 136-145 POTASSIUM (BEAKER) (test 4.8 meq/L 3.5-5.1 Specimen slightly hemolyzed jbmh=141) CHLORIDE (BEAKER) (test 109 meq/L 98-107 belz=075) CO2 (BEAKER) (test vqjy=123) 20 meq/L 22-29 Call k > 5, [id number] 19:37:00 Test Item Value Reference Range Comments PROTIME (BEAKER) (test wozf=686) 33.9 seconds 11.9-14.2 INR (BEAKER) (test xrdt=580) 3.6 <=5.9 PARTIAL THROMBOPLASTIN TIME (BEAKER) (test 85.5 seconds 22.5-36.0 kdmy=992) Effective 07/18/2018: PT Reference Range ChangeNew: 11.9-14.2 Previous: 11.7- 14.7RECOMMENDED COUMADIN/WARFARIN INR THERAPY RANGESSTANDARD DOSE: 2.0-3.0 Includes: PROPHYLAXIS for venous thrombosis, systemic embolization; TREATMENT for venous thrombosis and/or pulmonary embolus.HIGH RISK: Target INR is2.5-3.5 for patients wiht mechanical heart valves.[id number] 19:36:00 Test Item Value Reference Range Comments FIBRINOGEN LEVEL (BEAKER) (test blfm=501) 336 mg/dl 225-434 LACTIC ACID, [id number] 19:34:00 Test Item Value Reference Range Comments LACTATE BLOOD ARTERIAL (2) 1.3 mmol/L 0.5-2.2 Specimen slightly hemolyzed (BEAKER) (test xreq=6976) CBC (HEMOGRAM ONLY)2018-08-01 19:23:00 Test Item Value Reference Range Comments WHITE BLOOD CELL COUNT (BEAKER) (test ophm=179) 14.1 K/ L 3.5-10.5 RED BLOOD CELL COUNT (BEAKER) (test dbfa=522) 3.68 M/ L 3.93-5.22 HEMOGLOBIN (BEAKER) (test hgyk=674) 11.3 GM/DL 11.2-15.7 HEMATOCRIT (BEAKER) (test hckw=895) 34.6 % 34.1-44.9 MEAN CORPUSCULAR VOLUME (BEAKER) (test hsfw=495) 94.0 fL 79.4-94.8 MEAN CORPUSCULAR HEMOGLOBIN (BEAKER) (test 30.7 pg 25.6-32.2 ajdq=755) MEAN CORPUSCULAR HEMOGLOBIN CONC (BEAKER) (test 32.7 GM/DL 32.2-35.5 flzi=685) RED CELL DISTRIBUTION WIDTH (BEAKER) (test 13.1 % 11.7-14.4 ubis=308) PLATELET COUNT (BEAKER) (test ctdw=677) 207 K/CU MM 150-450 MEAN PLATELET VOLUME (BEAKER) (test kcya=819) 9.9 fL 9.4-12.3 NUCLEATED RED BLOOD CELLS (BEAKER) (test 0 /100 WBC 0-0 xzib=700) BLOOD GAS, [id number] 19:16:00 Test Item Value Reference Range Comments PH ARTERIAL (BEAKER) (test bcan=100) 7.35 7.35-7.45 PCO2 ARTERIAL (BEAKER) (test qcib=082) 39 mmHg 35-45 PO2 ARTERIAL (BEAKER) (test uxov=619) 50 mmHg 80-90 O2 SATURATION ARTERIAL (BEAKER) (test hfzl=191) 84.5 % 96.0-97.0 HCO3 ARTERIAL (BEAKER) (test gvol=433) 21 mmol/L 21-29 BASE EXCESS ARTERIAL (BEAKER) (test bnlk=049) -4.5 mmol/L -2.0-3.0 PATIENT TEMPERATURE (BEAKER) (test gdja=0153) 36.7 C FIO2 (BEAKER) (test nnmo=5320) 36.0 % GLUCOSE-STAT [id number] 19:16:00 Test Item Value Reference Range Comments GLUCOSE RANDOM (BEAKER) (test uytg=450) 231 mg/dL 70-110 HGB/HCT (H&H) - STAT [id number] 19:16:00 Test Item Value Reference Range Comments HEMOGLOBIN (BEAKER) (test atlr=061) 11.5 g/dL 12.0-15.0 HEMATOCRIT (BEAKER) (test jeuy=584) 34.0 % 36.0-45.0 CALCIUM, [id number] 19:15:00 Test Item Value Reference Range Comments CALCIUM IONIZED (BEAKER) (test mvsx=975) 1.26 mmol/L 1.12-1.27 PH, BLOOD (BEAKER) (test rngn=8432) 7.35 OXYGEN SATURATION, [id number] 19:14:00 Test Item Value Reference Range Comments O2 SATURATION (MEASURED) (BEAKER) (test bjfi=4797) 41.9 % SODIUM NA-STAT [id number] 19:14:00 Test Item Value Reference Range Comments SODIUM (BEAKER) (test ztog=638) 138 meq/L 135-148 POTASSIUM-STAT [id number] 19:14:00 Test Item Value Reference Range Comments POTASSIUM (BEAKER) (test wrgq=981) 4.7 meq/L 3.6-5.5 [id number] 16:45:00 Test Item Value Reference Range Comments ACTIVATED CLOTTING TIME 389 sec TESTED AT [facility] [address] (BEAKER) (test voni=091) [facility] [address] HEMOGLOBIN AND [id number] 16:38:00 Test Item Value Reference Range Comments HEMOGLOBIN (BEAKER) (test oqvc=649) 10.1 GM/DL 11.2-15.7 HEMATOCRIT (BEAKER) (test crah=811) 31.6 % 34.1-44.9 PLATELET AGGREGATION: FUNCTION [id number] 16:05:00 Test Item Value Reference Range Comments WEAK ADP RESULT(BEAKER) (test 34 % 60-91 ncxv=2737) PLATELET FUNCTION SCREEN 0-39% indicates marked platelet INTERP (BEAKER) (test dysfunction eodz=2690) [id number]-WSPSTAPPOAH-[id number] Talia Villarreal MD (BEAKER) (test ddnn=0131) (electronic signature) PLATELET COUNT AGG (BEAKER) 186 K/CU MM 150-450 (test rkhe=7741) Platelet Function Screen results may be falsely low with platelet counts<100, 000/cu mm.[id number] 15:02:00 Test Item Value Reference Range Comments ACTIVATED CLOTTING TIME 411 sec TESTED AT [address] (BEAKER) (test cejw=354) [place] [id number] POCT-GLUCOSE [id number] 12:17:00 Test Item Value Reference Range Comments POC-GLUCOSE METER (BEAKER) 103 mg/dL 70-110 TESTED AT [address] (test jnsk=8064) [place] [address] POCT-GLUCOSE [id number] 08:18:00 Test Item Value Reference Range Comments POC-GLUCOSE METER (BEAKER) 388 mg/dL 70-110 TESTED AT [address] (test jngh=1958) [place] [id number] HEPATIC FUNCTION [id number] 08:09:00 Test Item Value Reference Range Comments TOTAL PROTEIN (BEAKER) (test 6.2 gm/dL 6.0-8.3 Specimen slightly hemolyzed keuz=355) ALBUMIN (BEAKER) (test 3.4 g/dL 3.5-5.0 Specimen slightly hemolyzed adac=3652) BILIRUBIN TOTAL (BEAKER) (test 0.4 mg/dL 0.2-1.2 Specimen slightly hemolyzed gjzq=411) BILIRUBIN DIRECT (BEAKER) (test 0.1 mg/dL 0.1-0.5 Specimen slightly hemolyzed qrte=761) ALKALINE PHOSPHATASE (BEAKER) 59 U/L 40-150 (test lbtg=930) AST (SGOT) (BEAKER) (test 19 U/L 5-34 Specimen slightly hemolyzed ekce=249) ALT (SGPT) (BEAKER) (test 10 U/L 6-55 Specimen slightly hemolyzed vqmn=828) TROPONIN [id number] 06:39:00 Test Item Value Reference Range Comments TROPONIN I (BEAKER) (test bktb=736) 0.26 ng/mL 0.00-0.03 Troponin I (TnI) levels [...] acidosis, acute neurological disease, and persistent tachyarrhythmia.POCT-GLUCOSE [id number] 06:36:00 Test Item Value Reference Range Comments POC-GLUCOSE METER (BEAKER) 415 mg/dL 70-110 TESTED AT [facility] [address] (test ndgp=0569) [facility] [address] BASIC METABOLIC [id number] 06:10:00 Test Item Value Reference Range Comments SODIUM (BEAKER) (test 135 meq/L 136-145 vsdd=823) POTASSIUM (BEAKER) (test 4.9 meq/L 3.5-5.1 Specimen slightly htmh=233) hemolyzed CHLORIDE (BEAKER) (test 104 meq/L 98-107 trqn=433) CO2 (BEAKER) (test 21 meq/L 22-29 mmna=137) BLOOD UREA NITROGEN 53 mg/dL 7-21 (BEAKER) (test ulpg=946) CREATININE (BEAKER) (test 2.28 mg/dL 0.57-1.25 Specimen slightly wdrq=932) hemolyzed GLUCOSE RANDOM (BEAKER) 473 mg/dL 70-105 (test udon=047) CALCIUM (BEAKER) (test 8.7 mg/dL 8.4-10.2 epnm=607) EGFR (BEAKER) (test 21 mL/min/1.73 sq m ESTIMATED GFR IS NOT wzuk=0132) ACCURATE CREATININE CLEARANCE IN PREDICTING GLOMERULAR FILTRATION RATE. ESTIMATED GFR IS NOT APPLICABLE FOR DIALYSIS PATIENTS. [id number] 06:03:00 Test Item Value Reference Range Comments MAGNESIUM (BEAKER) (test 2.2 mg/dL 1.6-2.6 Specimen slightly hemolyzed xydd=819) THROMBIN [id number] 05:09:00 Test Item Value Reference Range Comments THROMBIN TIME (BEAKER) (test ewni=188) 64.9 secs 13.8-20.0 Draw baseline aPTT prior to [id number] 05:08:00 Test Item Value Reference Range Comments PARTIAL THROMBOPLASTIN TIME (BEAKER) (test 43.1 seconds 22.5-36.0 pgaf=581) Draw baseline aPTT prior to infusionPROTHROMBIN TIME/[id number] 05:07:00 Test Item Value Reference Range Comments PROTIME (BEAKER) (test mrcp=277) 15.0 seconds 11.9-14.2 INR (BEAKER) (test lmdv=802) 1.2 <=5.9 Effective 07/18/2018: PT Reference Range ChangeNew: 11.9-14.2 Previous: 11.7- 14.7RECOMMENDED COUMADIN/WARFARIN INR THERAPY RANGESSTANDARD DOSE: 2.0-3.0 Includes: PROPHYLAXIS for venous thrombosis, systemic embolization; TREATMENT for venous thrombosis and/or pulmonary embolus.HIGH RISK: Target INR is2.5-3.5 for patients wiht mechanical heart valves.Draw baseline aPTT prior to infusionCBC W/PLT COUNT & AUTO [id number] 04:59:00 Test Item Value Reference Range Comments WHITE BLOOD CELL COUNT (BEAKER) (test axbv=300) 7.0 K/ L 3.5-10.5 RED BLOOD CELL COUNT (BEAKER) (test aame=618) 3.82 M/ L 3.93-5.22 HEMOGLOBIN (BEAKER) (test otra=046) 11.7 GM/DL 11.2-15.7 HEMATOCRIT (BEAKER) (test ikkp=898) 35.9 % 34.1-44.9 MEAN CORPUSCULAR VOLUME (BEAKER) (test stno=048) 94.0 fL 79.4-94.8 MEAN CORPUSCULAR HEMOGLOBIN (BEAKER) (test 30.6 pg 25.6-32.2 qxij=264) MEAN CORPUSCULAR HEMOGLOBIN CONC (BEAKER) (test 32.6 GM/DL 32.2-35.5 oysx=957) RED CELL DISTRIBUTION WIDTH (BEAKER) (test 12.8 % 11.7-14.4 sqco=861) PLATELET COUNT (BEAKER) (test kmms=340) 225 K/CU MM 150-450 MEAN PLATELET VOLUME (BEAKER) (test qlkw=328) 10.5 fL 9.4-12.3 NUCLEATED RED BLOOD CELLS (BEAKER) (test 0 /100 WBC 0-0 ldzh=326) NEUTROPHILS RELATIVE PERCENT (BEAKER) (test 87 % ggjq=495) LYMPHOCYTES RELATIVE PERCENT (BEAKER) (test 10 % ofzy=023) MONOCYTES RELATIVE PERCENT (BEAKER) (test 2 % ihfk=722) EOSINOPHILS RELATIVE PERCENT (BEAKER) (test 0 % zwci=687) BASOPHILS RELATIVE PERCENT (BEAKER) (test 0 % oiae=897) NEUTROPHILS ABSOLUTE COUNT (BEAKER) (test 6.10 K/ L 1.56-6.13 glao=654) LYMPHOCYTES ABSOLUTE COUNT (BEAKER) (test 0.72 K/ L 1.18-3.74 qdwh=535) MONOCYTES ABSOLUTE COUNT (BEAKER) (test 0.14 K/ L 0.24-0.36 xdmc=442) EOSINOPHILS ABSOLUTE COUNT (BEAKER) (test 0.00 K/ L 0.04-0.36 dszh=895) BASOPHILS ABSOLUTE COUNT (BEAKER) (test 0.01 K/ L 0.01-0.08 mkdz=647) IMMATURE GRANULOCYTES-RELATIVE PERCENT (BEAKER) 1 % 0-1 (test tlhr=6801) RAD, CHEST, 1 VIEW, NON [id number] 04:33:00Reason for exam:->preopShould this be performed at the bedside?->YesFINAL REPORT RAD, CHEST, 1 VIEW, NON DEPT INDICATION: preop COMPARISON: Prior day's exam FINDINGS: Portable frontal view of the chest. IMPRESSION: Support Lines: Stable. Lungs and pleura: Unchanged airspace and pleural opacities. No pneumothorax.Heart and mediastinum: Stable contours. Additional findings: None. Signed: Socorro Méndez Verified Date/Time: 08/01/2018 04:33:15 RAD , CHEST, 1 VIEW, NON [id number] 00:02:00Reason for exam:->Intraaortic balloon pump insertionShould this [...] Postsurgical changes of the cervical spine. Signed: Socorro Méndezconnecticut hospice Verified Date/Time: 08/01/2018 00:02:19 Electronically signed by: SOCORRO MÉNDEZ MD on08/01/2018 12:02 AMTSH/FREE T4 IF [id number] 21:34:00 Test Item Value Reference Range Comments THYROID STIMULATING HORMONE (BEAKER) (test 0.99 uIU/mL 0.35-4.94 xybr=650) TROPONIN [id number] 21:26:00 Test Item Value Reference Range Comments TROPONIN I (BEAKER) (test vuty=598) 0.28 ng/mL 0.00-0.03 Troponin I (TnI) levels [...] NATRIURETIC PEPTIDE (BEAKER) (test 633 pg/mL 0-100 krmk=879) RAD, CHEST, 1 VIEW, NON [id number] 21:20:00Reason for exam:->unstable anginaShould this be performed at the bedside?->YesFINAL REPORT Portable chest. HISTORY: Unstable angina. COMPARISON STUDY: Noneavailable. FINDINGS: The cardiac size is enlarged. There are bilateral increased interstitial markings with some atelectasis or fibrosis in the lung bases. No pleural effusion or pneumothorax is seen. Degenerative changes and osteopenia are seen. IMPRESSION: Cardiomegaly with increased interstitial markings. Signed: Rui Gillis MDReport Verified Date/Time: 07/31/2018 21:20 :52 Reading Location: [address] Consult Reading Room [facility] METABOLIC [id number] 21:18:00 Test Item Value Reference Range Comments SODIUM (BEAKER) (test 137 meq/L 136-145 xpqg=731) POTASSIUM (BEAKER) (test 4.6 meq/L 3.5-5.1 kabd=950) CHLORIDE (BEAKER) (test 104 meq/L 98-107 yckb=193) CO2 (BEAKER) (test 25 meq/L 22-29 xvwg=970) BLOOD UREA NITROGEN 47 mg/dL 7-21 (BEAKER) (test rqhc=414) CREATININE (BEAKER) (test 2.18 mg/dL 0.57-1.25 grwg=186) GLUCOSE RANDOM (BEAKER) 223 mg/dL 70-105 (test fesg=642) CALCIUM (BEAKER) (test 9.1 mg/dL 8.4-10.2 gezf=719) EGFR (BEAKER) (test 22 mL/min/1.73 sq m ESTIMATED GFR IS NOT wsgk=2533) ACCURATE CREATININE CLEARANCE IN PREDICTING GLOMERULAR FILTRATION RATE. ESTIMATED GFR IS NOT APPLICABLE FOR DIALYSIS PATIENTS. HEPATIC FUNCTION [id number] 21:15:00 Test Item Value Reference Range Comments TOTAL PROTEIN (BEAKER) (test hhsn=021) 6.8 gm/dL 6.0-8.3 ALBUMIN (BEAKER) (test hipc=8422) 3.8 g/dL 3.5-5.0 BILIRUBIN TOTAL (BEAKER) (test jyro=453) 0.6 mg/dL 0.2-1.2 BILIRUBIN DIRECT (BEAKER) (test sgza=410) 0.3 mg/dL 0.1-0.5 ALKALINE PHOSPHATASE (BEAKER) (test jfao=020) 67 U/L 40-150 AST (SGOT) (BEAKER) (test wkyw=799) 14 U/L 5-34 ALT (SGPT) (BEAKER) (test tuqn=513) 10 U/L 6-55 [id number] 20:57:00 Test Item Value Reference Range Comments PARTIAL THROMBOPLASTIN TIME (BEAKER) (test 27.7 seconds 22.5-36.0 xtfh=942) PROTHROMBIN [id number] 20:56:00 Test Item Value Reference Range Comments PROTIME (BEAKER) (test uqnb=128) 13.1 seconds 11.9-14.2 INR (BEAKER) (test vmme=239) 1.0 <=5.9 Effective 07/18/2018: PT Reference Range ChangeNew: 11.9-14.2 Previous: 11.7- 14.7RECOMMENDED COUMADIN/WARFARIN INR THERAPY RANGESSTANDARD DOSE: 2.0-3.0 Includes: PROPHYLAXIS for venous thrombosis, systemic embolization; TREATMENT for venous thrombosis and/or pulmonary embolus.HIGH RISK: Target INR is2.5-3.5 for patients wiht mechanical heart valves.CBC W/PLT COUNT & AUTO [id number] 20:50:00 Test Item Value Reference Range Comments WHITE BLOOD CELL COUNT (BEAKER) (test vxdc=094) 8.4 K/ L 3.5-10.5 RED BLOOD CELL COUNT (BEAKER) (test gogs=389) 4.23 M/ L 3.93-5.22 HEMOGLOBIN (BEAKER) (test bzir=513) 13.0 GM/DL 11.2-15.7 HEMATOCRIT (BEAKER) (test gkho=178) 41.2 % 34.1-44.9 MEAN CORPUSCULAR VOLUME (BEAKER) (test tmom=611) 97.4 fL 79.4-94.8 MEAN CORPUSCULAR HEMOGLOBIN (BEAKER) (test 30.7 pg 25.6-32.2 vwrr=988) MEAN CORPUSCULAR HEMOGLOBIN CONC (BEAKER) (test 31.6 GM/DL 32.2-35.5 mahe=575) RED CELL DISTRIBUTION WIDTH (BEAKER) (test 12.8 % 11.7-14.4 zqem=237) PLATELET COUNT (BEAKER) (test dmnn=491) 230 K/CU MM 150-450 MEAN PLATELET VOLUME (BEAKER) (test ayir=232) 9.9 fL 9.4-12.3 NUCLEATED RED BLOOD CELLS (BEAKER) (test 0 /100 WBC 0-0 uucl=903) NEUTROPHILS RELATIVE PERCENT (BEAKER) (test 87 % ufoo=764) LYMPHOCYTES RELATIVE PERCENT (BEAKER) (test 12 % gwgv=963) MONOCYTES RELATIVE PERCENT (BEAKER) (test 1 % ynen=554) EOSINOPHILS RELATIVE PERCENT (BEAKER) (test 0 % lmku=296) BASOPHILS RELATIVE PERCENT (BEAKER) (test 0 % mnsp=713) NEUTROPHILS ABSOLUTE COUNT (BEAKER) (test 7.32 K/ L 1.56-6.13 dpde=564) LYMPHOCYTES ABSOLUTE COUNT (BEAKER) (test 0.98 K/ L 1.18-3.74 ugxo=132) MONOCYTES ABSOLUTE COUNT (BEAKER) (test 0.08 K/ L 0.24-0.36 pfao=882) EOSINOPHILS ABSOLUTE COUNT (BEAKER) (test 0.00 K/ L 0.04-0.36 vgfa=181) BASOPHILS ABSOLUTE COUNT (BEAKER) (test 0.01 K/ L 0.01-0.08 avyf=107) IMMATURE GRANULOCYTES-RELATIVE PERCENT (BEAKER) 0 % 0-1 (test ptvt=5996) [id number] 19:45:00 Test Item Value Reference Range Comments TROPONIN-I (test 0.18 ng/mL 0.00-0.05 RESULTS CALLED TO SOLITARIO SCHUMACHER code=TROPI) AT 1945 07/28/18.Oly Malloy L VALUE READ BACK BY NURSE AND VERIFIED BY TECH? Y<0.05 Normal0.06 - 0.39 Consistent with circulating Troponin with possible Myocardial injury.>0.40 Consistent with Myocardial injury extensive enough to conform with AMI as defined by WHO. COMPREHENSIVE METABOLIC [id number] 16:08:00 Test Item Value Reference Range Comments SODIUM (test code=NA) 139 mmol/L 136-145 POTASSIUM (test code=K) 4.3 mmol/L 3.5-5.1 CHLORIDE (test code=CL) 106 mmol/L 98-107 CARBON DIOXIDE (test 28 mmol/L 21-32 code=CO2) GLUCOSE (test code=GLU) 255 mg/dL 65-99 BLOOD UREA NITROGEN (test 47 mg/dL 7-18 code=BUN) GLOMERULAR FILTRATION RATE 20 Reporting units: (test code=GFR) ml/min/1.73m\\S\\2 (Modified MDRD Formula)If age < 18 years, [...] 45-117 (test code=ALKP) - XR CHEST 1 [id number] 15:43:00 FAX: Rhett Jo [phone] Camps: ER St: REG Name: [facility]- Emergency Services : 1940 Age/S: 78/F [address] Unit #: [id number] Loc: VR.[place], [place] [address] Phys: Rhett Sams MD Acct: [id number] Dis Date: Status: REG ER PHONE #: [phone] Exam Date: 07/28/2018 [facility]8 FAX #: [phone] Reason: CP EXAMS: CPT CODE: [id number] XR CHEST 1 V [id number] Examination: Chest 1 view Location code: S17 Comparison: None Discussion: Clinical history is remarkable for chest tightness. Cardiac silhouette is slightly enlarged, atherosclerotic change present. There are coarsened interstitial changes present bilaterally, mild bilateral parenchymal basilar scarring noted. Impression: 1. Coarsened interstitial changes with likely bilateral basilar parenchymal scarring. Electronically Signed by TONIA BUNN M.D. on 09/2018 at 1541 Reported and signed by: YUAN BUNN M.D. CC: Rhett Sams MDTechnologist: HESHAM FONG RT,(R) ARRT Transcribed Date/Time/By: 07/28/2018 (6138) : [id number] Orig Print D/T: S: 07/28/2018 (0866) Automated exposure control, iterative reconstruction technique, and/ oradjustment of mA and/or kV according to patient's size was utilizedfor optimum radiation dose reduction. PAGE 1 Signed ReportTROPONIN I [id number] 15:37:00 Test Item Value Reference Range Comments TROPONIN I RAPID (test 0.03 NG/ML 0.00-0.08 0.00 - 0.08 Normal0.09 - code=TROPIRAP) 0.40 Indeterminate for AMI 0.41 and above Compatible with AMI CHEMISTRY 8 [id number] 15:36:00 Test Item Value Reference Range Comments [...] (test code=CREATBED) 2.6 MG/DL 0.6-1.0 CBC W/AUTO [id number] 15:34:00 Test Item Value Reference Range Comments [...]
--- OUTSIDE RECORDS SUMMARY | 2019-05-26 21:44 | XMS REPORT ---
[...] Problem Coronary artery disease involving I25.110 Active [place] coronary artery of [place] heart with unstable angina pectoris Problem Cervical [...] for falling Z91.81 Active Problem Atherosclerosis of [place] coronary I25.10 Active artery Problem Chronic kidney disease (CKD), stage N18.4 Active IV (severe) Problem Other osteoporosis M81.8 Active Problem retirement current 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 Z79.4 Active Problem Cervical stenosis of spine M48.02 Active Problem H/O stroke without residual Z86.73 Active deficits Problem Type 2 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 Problem 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
--- OUTSIDE RECORDS SUMMARY | 2019-05-26 21:45 | XMS REPORT ---
:1940 Author Organization eClinicalWorks Care Team Providers Name Role Phone Orlando John Provider Role Unavailable Allergies No Known Allergies Problems Problem Type Condition Code Onset Dates Condition Status Assessment Right upper quadrant abdominal pain R10.11 Active Assessment History of cholecystectomy Z90.49 Active Problem 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 Active classified elsewhere Problem Chronic kidney disease, stage 4 N18.4 Active (severe) Problem Mixed hyperlipidemia E78.2 Active Problem Hypertensive heart disease without I11.9 Active heart failure Problem Primary osteoarthritis of left knee M17.12 Active Problem 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 knee Problem Coronary artery disease involving I25.110 Active [place] coronary artery of [place] heart with unstable angina pectoris Problem Stented coronary artery Z95.5 Active Problem Chronic kidney disease (CKD), stage N18.4 Active IV (severe) Problem Proteinuria, unspecified R80.9 Active Problem History of cholecystectomy Z90.49 Active Problem Cervical stenosis (uterine cervix) N88.2 Active Problem Acute pain of left knee M25.562 Active Problem Pain, joint, knee, right M25.561 Active Problem 3-vessel coronary artery disease I25.10 Active Problem Adult BMI 36.0-36.9 kg/sq m Z68.36 Active Problem Atherosclerosis of [place] coronary I25.10 Active artery Problem H/O stroke without residual Z86.73 Active deficits Problem Other osteoporosis M81.8 Active Problem At risk for falling Z91.81 Active Problem Cervical stenosis of spine M48.02 Active Problem Type 2 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 Problem Primary hypersomnia F51.11 Active Problem 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
--- OUTSIDE RECORDS SUMMARY | 2019-05-26 21:45 | XMS REPORT ---
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 Assessment Chronic kidney disease, stage 4 N18.4 Active (severe) Assessment Chronic systolic congestive heart I50.22 Active failure Assessment Coronary artery disease involving I25.110 Active [place] coronary artery of [place] heart with unstable angina pectoris Assessment Atrial flutter, unspecified type I48.92 Active Assessment Chest pain, unspecified type R07.9 Active Problem Mixed hyperlipidemia E78.2 Active Problem Cervical stenosis of spine M48.02 Active Problem Type 2 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 Problem H/O stroke without residual Z86.73 Active deficits Problem Pain, joint, knee, right M25.561 Active Problem Primary osteoarthritis of left knee M17.12 Active Problem 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 knee Problem History of cholecystectomy Z90.49 Active Problem Stented coronary artery Z95.5 Active Problem Proteinuria, unspecified R80.9 Active Problem Cervical stenosis (uterine cervix) N88.2 Active Assessment Cervical stenosis of spine M48.02 Active Problem Atrial flutter, unspecified type I48.92 Active Problem Primary hypersomnia F51.11 Active Assessment Adult BMI 36.0-36.9 kg/sq m Z68.36 Active Problem Adult BMI 36.0-36.9 kg/sq m Z68.36 Active Assessment H/O stroke without residual Z86.73 Active deficits Problem Acute pain of left knee M25.562 Active Assessment 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 Active Problem 3-vessel coronary artery disease I25.10 Active Assessment 3-vessel coronary artery disease I25.10 Active Problem Coronary artery disease involving I25.110 Active [place] coronary artery of [place] heart with unstable angina pectoris Assessment Left sided numbness R20.0 Active Problem At risk for falling Z91.81 Active Assessment Proteinuria, unspecified R80.9 Active Problem Atherosclerosis of [place] coronary I25.10 Active artery Assessment Mixed hyperlipidemia E78.2 Active Problem Chronic kidney disease (CKD), stage N18.4 Active IV (severe) Assessment History of coronary artery stent Z95.5 Active placement Problem Other osteoporosis M81.8 Active Assessment Other osteoporosis M81.8 Active Problem Hypertensive heart disease without I11.9 Active heart failure Assessment At risk for falling Z91.81 Active Problem correction current 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 Z79.4 Active Problem 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 Active classified elsewhere Problem Chronic kidney disease, stage 4 N18.4 Active (severe) Medications Medication Code Code Instructions Start End Status Dosage System Date Date Lactobacillus ND 0 Active not defined Cyanocobalamin [facility] [address]-61 1000 MCG Orally Active 1 tablet Once a day Thiamine HCl [facility] 96502971596 100 MG Orally Active 1 tablet Once a day Tresiba FlexTouch [facility] 66627038612 200 UNIT/ML Active 10 units Subcutaneous daily Humalog [facility] 37333013740 100 UNIT/ML Active as Subcutaneous directed Clopidogrel [facility] 22290488268 75 MG Orally Active 1 tablet Bisulfate Once a day Folic Acid [facility] 67343219906 1 MG Active TAKE 1 TABLET BY MOUTH EVERY DAY Senna S [facility] 62751156590 8.6-50 MG Active 1 tablet Orally Once a in the day evening as needed Nitrostat [facility] 53602860719 0.4 MG Active as Sublingual 3 directed doses within 15 minutes PRN CHEST PAIN Plavix [facility] 60318663676 75 MG Orally Active 1 tablet Once a day Ferrous Sulfate [facility] 52012077589 325 (65 Fe) MG Active TAKE 1 Oral TABLET BY MOUTH TWICE A DAY Metoprolol [facility] 74579749677 50 MG Orally Active 1 tablet Tartrate Twice a day with food Lipitor [facility] 43567682141 80 MG Orally Active 1 tablet Once a day Bumetanide [facility] 11303609218 1 MG Oral Active TAKE 1 TABLET BY MOUTH TWICE A DAY Cranberry Extract [facility] [address] Active not defined BD Pen Needle [facility] 61924641243 31G X 5 MM Active USE Mini U/F DIRECTED Vitamin D-3 [facility] 81164581834 5000 UNIT Active as Orally directed Aspir-Low [facility] 05167892985 81 MG Orally Active 1 tablet Once a day Calcitriol [facility] 34797235512 0.5 MCG Orally Active 1 capsule Once a day Tradjenta [facility] 47291001382 5 MG Orally Active 1 tablet Once a day Atorvastatin [facility] 50270714079 80 MG Active TAKE 1 Calcium TABLET BY MOUTH EVERY DAY Results No Known Results Summary Purpose eClinicalWorks Submission
--- OUTSIDE RECORDS SUMMARY | 2019-05-26 21:45 | XMS REPORT ---
:1940 Author Organization eClinicalWorks Care Team Providers Name Role Phone Orlando John Provider Role Unavailable Allergies No Known Allergies Problems Problem Type Condition Code Onset Dates Condition Status Assessment Stented coronary artery Z95.5 Active Problem Type 2 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 Assessment Coronary artery disease involving I25.110 Active [place] coronary artery of [place] heart with unstable angina pectoris Problem 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 Active classified elsewhere Problem Chronic kidney disease, stage 4 N18.4 Active (severe) Problem 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 knee Problem Hypertensive heart disease without I11.9 Active heart failure Problem 3-vessel coronary artery disease I25.10 Active Problem Coronary artery disease involving I25.110 Active [place] coronary artery of [place] heart with unstable angina pectoris Problem Proteinuria, [...] for falling Z91.81 Active Problem Atherosclerosis of [place] coronary I25.10 Active artery Problem Chronic kidney disease (CKD), stage N18.4 Active IV (severe) Problem Other osteoporosis M81.8 Active Problem shelter current 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 Z79.4 Active Problem Cervical stenosis of spine M48.02 Active Problem H/O stroke without residual Z86.73 Active deficits Problem Primary hypersomnia F51.11 Active Medications No Known Medications Results No Known Results Summary Purpose eClinicalWorks Submission
--- OUTSIDE RECORDS SUMMARY | 2019-05-26 21:45 | XMS REPORT ---
[...] Problem Coronary artery disease involving I25.110 Active [place] coronary artery of [place] heart with unstable angina pectoris Problem Cervical [...] for falling Z91.81 Active Problem Atherosclerosis of [place] coronary I25.10 Active artery Problem Chronic kidney disease (CKD), stage N18.4 Active IV (severe) Problem Other osteoporosis M81.8 Active Problem halfway current 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 Z79.4 Active Problem Cervical stenosis of spine M48.02 Active Problem H/O stroke without residual Z86.73 Active deficits Problem Type 2 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 Problem Primary hypersomnia F51.11 Active Problem 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 Active classified elsewhere Medications No Known Medications Results No Known Results Summary Purpose [employer] Submission
--- OUTSIDE RECORDS SUMMARY | 2019-05-26 21:45 | XMS REPORT ---
:1940 Author Organization eClinicalWorks Care Team Providers Name Role Phone Orlando John Provider Role Unavailable Allergies No Known Allergies Problems Problem Type Condition Code Onset Dates Condition Status Problem Hypertensive heart disease without I11.9 Active heart failure Problem Primary osteoarthritis of left knee M17.12 Active Problem 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 knee Problem Coronary artery disease involving I25.110 Active [place] coronary artery of [place] heart with unstable angina pectoris Problem Chronic kidney disease (CKD), stage N18.4 Active IV (severe) Problem Stented coronary artery Z95.5 Active Problem Proteinuria, unspecified R80.9 Active Problem Cervical stenosis (uterine cervix) N88.2 Active Problem History of cholecystectomy Z90.49 Active Problem Acute pain of left knee M25.562 Active Problem Pain, joint, knee, right M25.561 Active Problem 3-vessel coronary artery disease I25.10 Active Problem Adult BMI 36.0-36.9 kg/sq m Z68.36 Active Problem Atherosclerosis of [place] coronary I25.10 Active artery Problem H/O stroke without residual Z86.73 Active deficits Problem Other osteoporosis M81.8 Active Problem At risk for falling Z91.81 Active Problem Cervical stenosis of spine M48.02 Active Problem Type 2 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 Problem Primary hypersomnia F51.11 Active Problem 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 Active classified elsewhere Problem Mixed hyperlipidemia E78.2 Active Problem penitentiary current 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 Z79.4 Active Problem Chronic kidney disease, stage 4 N18.4 Active (severe) Medications No Known Medications Results No Known Results Summary Purpose [employer] Submission
--- OUTSIDE RECORDS SUMMARY | 2019-05-26 21:45 | XMS REPORT ---
[...] disease I43 Active classified elsewhere Assessment Health long term, active care Z78.9 Active coordination Assessment Chronic kidney disease, stage 4 N18.4 Active (severe) Assessment Type 2 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 Assessment Chronic systolic congestive heart I50.22 Active failure Assessment Need for home health care Z74.2 Active Problem Type 2 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 Assessment Coronary artery disease involving I25.110 Active [place] coronary artery of [place] heart with unstable angina pectoris Problem 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 Active classified elsewhere Problem Chronic kidney disease, stage 4 N18.4 Active (severe) Problem 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 knee Problem Hypertensive heart disease without I11.9 Active heart failure Problem 3-vessel coronary artery disease I25.10 Active Problem Coronary artery disease involving I25.110 Active [place] coronary artery of [place] heart with unstable angina pectoris Problem Proteinuria, unspecified R80.9 Active Problem Cervical stenosis (uterine cervix) N88.2 Active Assessment H/O stroke without residual Z86.73 Active deficits Problem Stented coronary artery Z95.5 Active Problem Mixed hyperlipidemia E78.2 Active Assessment care home current 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 Z79.4 [...] stent Z95.5 Active placement Problem Atherosclerosis of [place] coronary I25.10 Active artery Assessment Other osteoporosis M81.8 Active Problem Chronic kidney disease (CKD), stage N18.4 Active IV (severe) Assessment At risk for falling Z91.81 Active Problem Other osteoporosis M81.8 Active Assessment Adult BMI 36.0-36.9 kg/sq m Z68.36 Active Problem intermission coordinator current 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 Z79.4 Active Assessment Cervical stenosis of spine M48.02 Active Problem Cervical stenosis of spine M48.02 Active Problem H/O stroke without residual Z86.73 Active deficits Problem Primary hypersomnia F51.11 Active Medications Medication Code Code Instructions Start End Status Dosage System Date Date Cyanocobalamin [facility] [address]-80 1000 MCG Active 1 tablet Orally Once a day BD Pen Needle [facility] 24315482310 31G X 5 MM Active USE Mini U/F DIRECTED Folic Acid [facility] 15124643770 1 MG Orally Active 1 tablet Once a day Carvedilol [facility] 97702966515 6.25 MG Oral Active TAKE 1 TABLET BY MOUTH TWICE A DAY Nitrostat [facility] 92318386717 0.4 MG Active as Sublingual 3 directed doses within 15 minutes PRN CHEST PAIN Lactobacillus NDC 0 Active not defined Calcitriol [facility] 72641574844 0.5 MCG Orally Active 1 capsule Once a day Thiamine HCl [facility] 69746579260 100 MG Orally Active 1 tablet Once a day Humalog [facility] 50557799166 100 UNIT/ML Active as Subcutaneous directed Lipitor [facility] 82725194952 80 MG Orally Active 1 tablet Once a day Ferrous Sulfate [facility] 36439983318 325 (65 Fe) MG Active TAKE 1 Oral TABLET BY MOUTH TWICE A DAY Cranberry Extract [facility] 76353-[address]6 Active not defined Bumetanide [facility] 59589690006 1 MG Oral Active TAKE 1 TABLET BY MOUTH TWICE A DAY Clopidogrel [facility] 79788545395 75 MG Orally Active 1 tablet Bisulfate Once a day Tradjenta [facility] 89283420354 5 MG Orally Active 1 tablet Once a day Plavix [facility] 32411517298 75 MG Orally Active 1 tablet Once a day Vitamin D-3 [facility] 17199401072 5000 UNIT Active as Orally directed Tresiba FlexTouch [facility] 59195852754 200 UNIT/ML Active 10 units Subcutaneous daily Senna S [facility] 50685963894 8.6-50 MG Active 1 tablet Orally Once a in the day evening as needed Aspir-Low [facility] 91998725529 81 MG Orally Active 1 tablet Once a day Coreg [facility] 88451455109 6.25 MG Orally Inactive 1 tab BID Metoprolol [facility] 30224116061 50 MG Orally Active 1 tablet Tartrate Twice a day with food Results No Known Results Summary Purpose eClinicalWorks Submission
--- OUTSIDE RECORDS SUMMARY | 2019-05-26 21:45 | XMS REPORT ---
[...] Assessment Coronary artery disease involving I25.110 Active [place] coronary artery of [place] heart with unstable angina pectoris Problem Type [...] Problem Coronary artery disease involving I25.110 Active [place] coronary artery of [place] heart with unstable angina pectoris Problem Proteinuria, unspecified R80.9 Active Problem Cervical stenosis (uterine cervix) N88.2 Active Assessment alf current 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 Z79.4 Active [...] Mixed hyperlipidemia E78.2 Active Problem Atherosclerosis of [place] coronary I25.10 Active artery Assessment Cervical stenosis of spine M48.02 Active Problem Chronic kidney disease (CKD), stage N18.4 Active IV (severe) Assessment Other osteoporosis M81.8 Active Problem Other osteoporosis M81.8 Active Assessment H/O stroke without residual Z86.73 Active deficits Problem superintendent terminal current 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 Z79.4 Active Assessment Adult BMI 36.0-36.9 kg/sq m Z68.36 Active Problem Cervical stenosis of spine M48.02 Active Problem H/O stroke without residual Z86.73 Active deficits Problem Primary hypersomnia F51.11 Active Medications Medication Code Code Instructions Start End Status Dosage System Date Date Calcitriol [facility] 55775006814 0.5 MCG Orally Active 1 capsule Once a day Nitrostat [facility] 75074777364 0.4 MG Active as Sublingual 3 directed doses within 15 minutes PRN CHEST PAIN Bumetanide [facility] 44614604021 1 MG Oral Active TAKE 1 TABLET BY MOUTH TWICE A DAY Clopidogrel [facility] 59966621166 75 MG Orally Active 1 tablet Bisulfate Once a day Metoprolol [facility] 11407506052 50 MG Orally Active 1 tablet Tartrate Twice a day with food Ferrous Sulfate [facility] 25411130715 325 (65 Fe) MG Active TAKE 1 Oral TABLET BY MOUTH TWICE A DAY Thiamine HCl [facility] 46263803997 100 MG Orally Active 1 tablet Once a day Lipitor [facility] 21078328599 80 MG Orally Active 1 tablet Once a day Folic Acid [facility] 20866101507 1 MG Orally Active 1 tablet Once a day Lactobacillus NDC 0 Active not defined Plavix [facility] 38049336191 75 MG Orally Active 1 tablet Once a day Vitamin D-3 [facility] 95652277026 5000 UNIT Active as Orally directed Cyanocobalamin [facility] [address]-66 1000 MCG Active 1 tablet Orally Once a day BD Pen Needle [facility] 96464261774 31G X 5 MM Active USE Mini U/F DIRECTED Tradjenta [facility] 37598660985 5 MG Orally Active 1 tablet Once a day Tresiba FlexTouch [facility] 29103104311 200 UNIT/ML Active 10 units Subcutaneous daily Senna S [facility] 26536568891 8.6-50 MG Active 1 tablet Orally Once a in the day evening as needed Humalog [facility] 90207738557 100 UNIT/ML Active as Subcutaneous directed Aspir-Low [facility] 60521554509 81 MG Orally Active 1 tablet Once a day Coreg [facility] 72598980288 6.25 MG Orally Inactive 1 tab BID Cranberry Extract [facility] 10653-[address]29 Active not defined Results No Known Results Summary Purpose eClinicalWorks Submission
--- OUTSIDE RECORDS SUMMARY | 2019-05-26 21:46 | XMS REPORT ---
[...] Condition Code Onset Dates Condition Status Assessment Chronic kidney disease (CKD), stage N18.4 Active IV (severe) Assessment Hypertensive heart disease without I11.9 Active heart failure Assessment Type 2 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 Assessment Chest pain, unspecified type R07.9 Active Assessment Chronic systolic congestive heart I50.22 Active failure Assessment Medicare annual wellness visit, Z00.00 Active subsequent Assessment 3-vessel coronary artery disease I25.10 Active Assessment Atrial flutter, unspecified type I48.92 Active Assessment Coronary artery disease involving I25.110 Active ramona coronary artery of ramona heart with unstable angina pectoris Problem Mixed hyperlipidemia E78.2 Active Problem Cervical [...] Cervical stenosis (uterine cervix) N88.2 Active Assessment Other osteoporosis M81.8 Active Problem Atrial flutter, unspecified type I48.92 Active Problem Primary hypersomnia F51.11 Active Assessment Cervical stenosis of spine M48.02 Active Problem Adult BMI 36.0-36.9 kg/sq m Z68.36 Active Assessment Adult BMI 36.0-36.9 kg/sq m Z68.36 Active Problem Acute pain of left knee M25.562 Active Assessment H/O stroke without residual Z86.73 Active deficits Problem 3-vessel coronary artery disease I25.10 Active Assessment 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 Active Problem Coronary artery disease involving I25.110 Active [place] coronary artery of ramona heart with unstable angina pectoris Assessment Proteinuria, unspecified R80.9 Active Problem At risk for falling Z91.81 Active Assessment 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 Active classified elsewhere Problem Atherosclerosis of [place] coronary I25.10 Active artery Assessment Mixed hyperlipidemia E78.2 Active Problem Chronic kidney disease (CKD), stage N18.4 Active IV (severe) Assessment Left sided numbness R20.0 Active Problem Other osteoporosis M81.8 Active Assessment At risk for falling Z91.81 Active Problem Hypertensive heart disease without I11.9 Active heart failure Assessment History of coronary artery stent Z95.5 Active placement Problem nursing home current 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 Z79.4 Active Problem 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 Active classified elsewhere Problem Chronic kidney disease, stage 4 N18.4 Active (severe) Medications Medication Code Code Instructions Start End Status Dosage System Date Date Clopidogrel [facility] 84467343770 75 MG Active TAKE 1 Bisulfate TABLET BY MOUTH EVERY DAY Cyanocobalamin [facility] [address]-26 1000 MCG Active 1 tablet Orally Once a day Thiamine HCl [facility] 30609277457 100 MG Orally Active 1 tablet Once a day Tresiba FlexTouch [facility] 98453630159 200 UNIT/ML Active 10 units Subcutaneous daily Ferrous Sulfate [facility] 90140968356 325 (65 Fe) MG Active TAKE 1 Oral TABLET BY MOUTH TWICE A DAY BD Pen Needle [facility] 40290740039 31G X 5 MM Active USE Mini U/F DIRECTED Aspir-Low [facility] 36640776439 81 MG Orally Active 1 tablet Once a day Protonix [facility] 68188654193 40 MG Orally Active 1 packet Once a day mixed with apple juice or applesauce Senna S [facility] 85030376044 8.6-50 MG Active 1 tablet in Orally Once a the evening day as needed Atorvastatin [facility] 71325113291 80 MG Active TAKE 1 Calcium TABLET BY MOUTH EVERY DAY Humalog [facility] 71491787150 100 UNIT/ML Active as directed Subcutaneous Clopidogrel [facility] 21122563210 75 MG Orally Active 1 tablet Bisulfate Once a day Folic Acid [facility] 11049596688 1 MG Active TAKE 1 TABLET BY MOUTH EVERY DAY Nitrostat [facility] 54176634707 0.4 MG Active as directed Sublingual 3 doses within 15 minutes PRN CHEST PAIN Tradjenta [facility] 48249717010 5 MG Orally Active 1 tablet Once a day Cranberry Extract [facility] 45867-70238 Active not defined Lactobacillus ND 0 Active not defined Lipitor [facility] 81338682857 80 MG Orally Active 1 tablet Once a day Metoprolol [facility] 25825110466 50 MG Orally Active 1 tablet Tartrate Twice a day with food Calcitriol [facility] 76588982697 0.5 MCG Orally Active 1 capsule Once a day Vitamin D-3 [facility] 13603762107 5000 UNIT Active as directed Orally Bumetanide [facility] 39739035013 1 MG Oral Active TAKE 1 TABLET BY MOUTH TWICE A DAY Results No Known Results Summary Purpose [employer]Clinical[employer] Submission
--- OUTSIDE RECORDS SUMMARY | 2019-05-26 21:46 | XMS REPORT ---
:1940 Author Organization [employer] Care Team Providers Name Role Phone John Perry Provider Role Unavailable Allergies No Known Allergies Problems Problem Type Condition Code Onset Dates Condition Status Assessment 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 Active classified elsewhere Assessment Chronic kidney disease (CKD), stage N18.4 Active IV (severe) Problem Mixed hyperlipidemia E78.2 Active Problem Cervical [...] Cervical stenosis (uterine cervix) N88.2 Active Problem Atrial flutter, unspecified type I48.92 Active Problem Primary hypersomnia F51.11 Active Problem Adult BMI 36.0-36.9 kg/sq m Z68.36 Active Problem Acute pain of left knee M25.562 Active Problem 3-vessel coronary artery disease I25.10 Active Problem Coronary artery disease involving I25.110 Active nikolai coronary artery of nikolai heart with unstable angina pectoris Problem At risk for falling Z91.81 Active Problem Atherosclerosis of nikolai coronary I25.10 Active artery Problem Chronic kidney disease (CKD), stage N18.4 Active IV (severe) Problem Other osteoporosis M81.8 Active Problem Hypertensive heart disease without I11.9 Active heart failure Problem senior living current 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 Z79.4 Active Problem 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 Active classified elsewhere Problem Chronic kidney disease, stage 4 N18.4 Active (severe) Medications No Known Medications Results No Known Results Summary Purpose [employer]ClinicalWorks Submission
--- OUTSIDE RECORDS SUMMARY | 2019-05-26 21:46 | XMS REPORT ---
:1940 Author Organization [employer]Works Care Team Providers Name Role Phone John Perry Provider Role Unavailable Allergies No Known Allergies Problems Problem Type Condition Code Onset Dates Condition Status Problem Mixed hyperlipidemia E78.2 Active Problem Cervical [...] Problem Coronary artery disease involving I25.110 Active [place] coronary artery of [place] heart with unstable angina pectoris Problem At risk for falling Z91.81 Active Problem Atherosclerosis of [place] coronary I25.10 Active artery Problem Chronic kidney disease (CKD), stage N18.4 Active IV (severe) Problem Other osteoporosis M81.8 Active Problem Hypertensive heart disease without I11.9 Active heart failure Problem 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
--- NOTE | 2019-05-26 22:07 | RAD REPORT ---
EXAM DESCRIPTION: RAD - Chest Single View - 05/26/2019 10:01 pm CLINICAL HISTORY: CHEST PAIN Chest pain. COMPARISON: Chest Single View dated 03/19/2019; Chest Single View dated 01/25/2019; Chest Single View dated 12/20/2018; Chest Single View dated 11/20/2018 FINDINGS: Portable technique limits examination quality. The lungs are emphysematous but grossly clear. The heart is upper limit of normal in size. No displac ed fractures. IMPRESSION: Mild COPD.
[2019-05-26 22:40] LABS: Absolute Lymphocytes (CBC) 1.3 K/uL (0.7-4.9); Basophils % 0.5 % (0-1.3); Hematocrit 37.5 % (36.0-45.0); Lymphocytes % 20.9 % (15.3-44.8); MPV 8.5 fL (7.6-11.3); RBC Red Blood Cell Count 4.02 M/uL (3.86-4.86)
[2019-05-26 22:41] LABS: Protime INR 0.96
[2019-05-26 22:58] LABS: Albumin 3.2 g/dL (3.4-5.0); Bilirubin Direct 0.1 mg/dL (0-0.2); Bilirubin Total 0.3 mg/dL (0.2-1.0); Magnesium 2.3 mg/dL (1.8-2.4); Potassium 4.3 mmol/L (3.5-5.1); Protein, Total 6.8 g/dL (6.4-8.2); Troponin (Emerg Dept Use Only) 0.27 ng/mL (0.0-0.045)
--- NOTE | 2019-05-26 23:55 | ER ---
Nurse's Notes [facility] Name: Suzan Gonzalez Age: 78 yrs Sex: Female : 1940 Arrival Date: 05/26/2019 Time: 21:34 Bed 13 Private MD: Diagnosis: Unstable angina;Chronic kidney disease, stage 4 (severe) Presentation: 05/25 21:37 Chief complaint: EMS states: patient complain of chest pain 11/29 took 3 Nitrol SL at fu home and 2 N[address] by EMS on the way to the hospital. Pain subsided to 08/29. EMS also stated that 324 of Aspirin was given on the way to the hospital. Patient had stent placed on [facility] [place] March 2019. Coronavirus screen: Patient denies a cough. Patient denies shortness of breath or difficulty breathing. Patient denies measured and/or subjective temperature greater than 100.4F prior to today's visit. Patient denies travel on a cruise ship or to a country the [facility] currently lists as an affected area. Patient denies contact with known and/or suspected case of COVID-19. Ebola Screen: No symptoms or risks identified at this time. Initial Sepsis Screen: Does the patient meet any 2 criteria? No. Patient's initial sepsis screen is negative. Does the patient have a suspected source of infection? No. Patient's initial sepsis screen is negative. Risk Assessment: Do you want to hurt yourself or someone else? Patient reports no desire to harm self or others. Onset of symptoms was May 26, 2019 at 19:00. 21:37 Method Of Arrival: EMS: [facility] fu 21:37 Acuity: SERGIO 2 fu Historical: - Allergies: 22:07 "every pain narcotic"; fu 22:07 Bactrim; fu 22:07 Benadryl; fu 22:07 Levaquin; fu 22:07 Iodine; fu 22:07 Morphine; fu 22:07 Levofloxacin; fu 22:07 Sulfa (Sulfonamide Antibiotics); fu - Immunization history:: Adult Immunizations up to date. - Social history:: Smoking status: Patient/guardian denies using tobacco products. Screenin:01 Abuse screen: Denies threats or abuse. Nutritional screening: No deficits noted. fu Tuberculosis screening: No symptoms or risk factors identified. Fall Risk None identified. Assessment: 21:57 General: Appears comfortable, Behavior is calm, cooperative, appropriate for age, fu Denies fever, feeling ill, fatigue, chills. Pain: Complains of pain in chest pain Pain does not radiate. Pain currently is 5 out of 10 on a pain scale. Quality of pain is described as sharp, Pain began 3 hours ago. Is continuous. Neuro: Level of Consciousness is awake, alert, obeys commands, Oriented to person, place, time, situation, [employer] [place] are equal bilaterally Moves all extremities. Weakness Speech is normal, Facial symmetry appears normal. Cardiovascular: Reports chest pain, Denies lightheadedness, nausea, shortness of breath, syncope, vomiting, Heart tones S1 S2 Capillary refill < 3 seconds Pulses are all present. Respiratory: Airway is patent Breath sounds are clear bilaterally. GI: No signs and/or symptoms were reported involving the gastrointestinal system. : No signs and/or symptoms were reported regarding the genitourinary system. EENT:. 22:30 Reassessment: Patient and/or family updated on plan of care and expected duration. Pain fu level reassessed. Patient is alert, oriented x 3, equal unlabored respirations, skin warm/dry/pink. 23:51 Reassessment: Patient and/or family updated on plan of care and expected duration. Pain fu level reassessed. Patient is alert, oriented x 3, equal unlabored respirations, skin warm/dry/pink. reports pain at the back, neck supported by rolled gown, reports slight relief. Called [facility] updating POC. 05/26 00:30 Reassessment: Patient and/or family updated on plan of care and expected duration. Pain fu level reassessed. Patient is alert, oriented x 3, equal unlabored respirations, skin warm/dry/pink. [place] provided. 01:00 Reassessment: Patient and/or family updated on plan of care and expected duration. Pain fu level reassessed. Patient is alert, oriented x 3, equal unlabored respirations, skin warm/dry/pink. Called [facility], notified that patient is to be hospitalized. Vital Signs: 05/25 21:35 BP 121 / 56; Pulse 83; Resp 20; Temp 98; Pulse Ox 97% on R/A; Pain 5/10; fu 21:37 BP 121 / 56; Pulse 83; Resp 20; Temp 98; Pulse Ox 97% ; Weight 70.31 kg; Height 5 ft. 1 fu in. (154.94 cm); Pain 5/10; 22:00 BP 143 / 69; Pulse 78; Resp 18; Pulse Ox 99% on R/A; Pain 5/10; fu 23:00 BP 109 / 46; Pulse 70; Resp 18; Pulse Ox 98% on R/A; Pain 5/10; fu 05/26 00:00 BP 123 / 47; Pulse 72; Resp 16; Pulse Ox 98% on R/A; Pain 5/10; fu 00:30 BP 131 / 46; Pulse 69; Resp 16; Pulse Ox 98% on R/A; fu 01:30 BP 117 / 47; Pulse 69; Resp 17; Pulse Ox 95% on R/A; Pain 5/10; fu 05/25 21:37 Body Mass Index 29.29 (70.31 kg, 154.94 cm) fu ED Course: 05/25 21:34 Patient arrived in ED. ds1 21:35 Angel Avila MD is Attending Physician. tw4 21:37 Jonathan Mistry, SOLITARIO is Primary Nurse. fu 21:46 Triage completed. fu 21:57 No provider procedures requiring assistance completed. Initial lab(s) drawn, by me, ca1 sent to lab. Maintain EMS IV. Dressing intact. Good blood return noted. Site clean \\T\\ dry. Gauge \\T\\ site: G18 LAC. 22:01 Patient has correct armband on for positive identification. Bed in low position. Call fu light in reach. Side rails up X 1. washroom attendant on. Pulse ox on. NIBP on. 22:03 XRAY Chest (1 view) In Process Unspecified. EDMS 23:54 Deng Almanza MD is Hospitalizing Provider. tw4 05/26 02:00 Patient admitted, IV remains in place. Patient maintains SpO2 saturation greater than fu 95% on room air. Administered Medications: 00:15 Drug: Lovenox 1 mg/kg Route: Sub-Q; Site: right lower abdomen; fu 00:30 Follow up: Response: No adverse reaction fu 00:21 Drug: Nitro-Bid Ointment 2 % 1 inches Route: Transdermal; Site: anterior chest wall; fu 01:21 Follow up: Response: No adverse reaction fu Outcome: 05/25 23:55 Decision to Hospitalize by Provider. tw4 05/26 02:20 Admitted to Med/surg accompanied by nurse, via stretcher, room 210, Report called to juvenal Jackson RN Condition: improved Discharge instructions given to patient, family, Instructed on the need for admit. 02:35 Patient left the ED. Signatures: Dispatcher [employer] EDRI LangleyJoy nicholson ds1 Jonathan Mistry, RN Angel Durham MD MD tw4 Jessica Mane RN RN ca1
--- NOTE | 2019-05-26 23:56 | EDPHYS ---
Physician Documentation [facility] Name: Suzan Gonzalez Age: 78 yrs Sex: Female : 1940 Arrival Date: 05/26/2019 Time: 21:34 Bed 13 Private MD: ED Physician Angel Avila HPI: 05/25 22:43 This 78 yrs old Female presents to ER via EMS with complaints of Chest Pain. tw4 22:43 The patient or guardian reports chest pain that is located primarily in the anterior tw4 chest wall, left. Onset: today. The pain does not radiate. Associated signs and symptoms: The patient has no apparent associated signs or symptoms. The chest pain is described as a heaviness. Duration: The patient or guardian reports a single episode. Severity of pain: At its worst the pain was severe a 10 / 10 in the emergency department the pain has improved is a 5 / 10. The patient has not experienced similar symptoms in the past. Historical: - Allergies: 22:07 "every pain narcotic"; fu 22:07 Bactrim; fu 22:07 Benadryl; fu 22:07 Levaquin; fu 22:07 Iodine; fu 22:07 Morphine; fu 22:07 Levofloxacin; fu 22:07 Sulfa (Sulfonamide Antibiotics); fu - Immunization history:: Adult Immunizations up to date. - Social history:: Smoking status: Patient/guardian denies using tobacco products. ROS: 22:43 Constitutional: Negative for fever, chills, and weight loss, Eyes: Negative for injury, tw4 pain, redness, and discharge, Respiratory: Negative for shortness of breath, cough, wheezing, and pleuritic chest pain, Abdomen/GI: Negative for abdominal pain, nausea, vomiting, diarrhea, and constipation. 22:43 MS/Extremity: Negative for injury and deformity, Skin: Negative for injury, rash, and discoloration, Neuro: Negative for headache, weakness, numbness, tingling, and seizure. 22:43 Cardiovascular: Positive for chest pain, Negative for edema, orthopnea, palpitations, paroxysmal nocturnal dyspnea. Exam: 22:43 Constitutional: This is a well developed, well nourished patient who is awake, alert, tw4 and in no acute distress. Head/Face: Normocephalic, atraumatic. Chest/axilla: Normal chest wall appearance and motion. Nontender with no deformity. No lesions are appreciated. Cardiovascular: Regular rate and rhythm with a normal S1 and S2. No gallops, murmurs, or rubs. Normal PMI, no JVD. No pulse deficits. Respiratory: Lungs have equal breath sounds bilaterally, clear to auscultation and percussion. No rales, rhonchi or wheezes noted. No increased work of breathing, no retractions or nasal flaring. Abdomen/GI: Soft, non-tender, with normal bowel sounds. No distension or tympany. No guarding or rebound. No evidence of tenderness throughout. Back: No spinal tenderness. No costovertebral tenderness. Full range of motion. MS/ Extremity: Pulses equal, no cyanosis. Neurovascular intact. Full, normal range of motion. Neuro: Awake and alert, GCS 15, oriented to person, place, time, and situation. Cranial nerves II-XII grossly intact. Motor strength 5/5 in all extremities. Sensory grossly intact. Cerebellar exam normal. Normal gait. Vital Signs: 21:35 BP 121 / 56; Pulse 83; Resp 20; Temp 98; Pulse Ox 97% on R/A; Pain 5/10; fu 21:37 BP 121 / 56; Pulse 83; Resp 20; Temp 98; Pulse Ox 97% ; Weight 70.31 kg; Height 5 ft. 1 fu in. (154.94 cm); Pain 5/10; 22:00 BP 143 / 69; Pulse 78; Resp 18; Pulse Ox 99% on R/A; Pain 5/10; fu 23:00 BP 109 / 46; Pulse 70; Resp 18; Pulse Ox 98% on R/A; Pain 5/10; fu 05/26 00:00 BP 123 / 47; Pulse 72; Resp 16; Pulse Ox 98% on R/A; Pain 5/10; fu 00:30 BP 131 / 46; Pulse 69; Resp 16; Pulse Ox 98% on R/A; fu 01:30 BP 117 / 47; Pulse 69; Resp 17; Pulse Ox 95% on R/A; Pain 5/10; fu 05/25 21:37 Body Mass Index 29.29 (70.31 kg, 154.94 cm) fu MDM: 05/25 21:35 Patient medically screened. tw4 23:55 Differential diagnosis: pulmonary embolus, thoracic aortic disection. Data reviewed: tw4 vital signs, nurses notes. Counseling: I had a detailed discussion with the patient and/or guardian regarding: the historical points, exam findings, and any diagnostic results supporting the discharge/admit diagnosis. 05/25 21:42 Order name: Basic Metabolic Panel; Complete Time: 23:17 [facility] 05/25 23:17 Interpretation: Normal except: NA 134; CO2 34; GLUC 417; CL 94; BUN 80; CRE 3.65; GFR tw4 12. 05/25 21:42 Order name: CBC with Diff; Complete Time: 23:17 tw 05/25 23:19 Interpretation: Within normal limits. 05/25 21:42 Order name: LFT's; Complete Time: 23:17 [facility] 05/25 23:17 Interpretation: Normal except: AST 14; ALT 11; ALK 124; ALB 3.2; GLOB 3.6; A/G 0.9. 05/25 21:42 Order name: Magnesium; Complete Time: 23:17 [facility] 05/25 23:19 Interpretation: Within normal limits: MG 2.3. 05/25 21:42 Order name: NT PRO-BNP; Complete Time: 23:17 [facility] 05/25 23:17 Interpretation: Abnormal: NT PRO-BNP 7140. 05/25 21:42 Order name: PT-INR; Complete Time: 23:17 [facility] 05/25 21:42 Order name: Troponin (emerg Dept Use Only); Complete Time: 23:17 [facility] 05/25 23:17 Interpretation: Abnormal: TROPED 0.27. tw05/25 21:42 Order name: XRAY Chest (1 view); Complete Time: 23:17 [facility] 05/26 01:00 Order name: Comprehensive Metabolic Panel [facility] 05/26 01:00 Order name: Comprehensive Metabolic Panel [facility] 05/26 01:00 Order name: Troponin I [facility] 05/26 01:00 Order name: Troponin I [facility] 05/26 01:00 Order name: Troponin I [facility] 05/25 21:42 Order name: EKG; Complete Time: 21:43 tw 05/25 21:42 Order name: Cardiac monitoring; Complete Time: 21:57 [facility] 05/25 21:42 Order name: EKG - Nurse/Tech; Complete Time: 22:04 tw4 05/25 21:42 Order name: IV Saline Lock; Complete Time: 21:57 tw4 05/25 21:42 Order name: Labs collected and sent; Complete Time: 21:57 tw4 05/25 21:42 Order name: O2 Per Protocol; Complete Time: 21:57 tw4 05/25 21:42 Order name: O2 Sat Monitoring; Complete Time: 21:57 tw4 05/26 01:00 Order name: CONS Pharmacy Consult EDMS 05/26 01:00 Order name: CONS Physician Consult EDMS 05/26 01:02 Order name: Heart Healthy EDMS 05/26 01:02 Order name: CONS Physician Consult EDMS EC:43 Rate is 77 beats/min. Rhythm is regular. QRS [place] is Normal. ND interval is normal. QRS tw4 interval is normal. QT interval is prolonged. No Q waves. T waves are Inverted in leads aVL, V6. No ST changes noted. Clinical impression: NSR w/ Non-specific ST/T Changes. Interpreted by me. Reviewed by me. Administered Medications: 05/26 00:15 Drug: Lovenox 1 mg/kg Route: Sub-Q; Site: right lower abdomen; fu 00:30 Follow up: Response: No adverse reaction fu 00:21 Drug: Nitro-Bid Ointment 2 % 1 inches Route: Transdermal; Site: anterior chest wall; fu 01:21 Follow up: Response: No adverse reaction fu Disposition: 05/26/19 23:55 Hospitalization ordered by Deng Almanza for Inpatient Admission. Preliminary diagnosis are Unstable angina, Chronic kidney disease, stage 4 (severe). - Bed requested for Telemetry/MedSurg (Inpatient). - Status is Inpatient Admission. fu - Condition is Stable. - Problem is an ongoing problem. - Symptoms have improved. Signatures: Dispatcher [employer] Barb Mckeon RN Jonathan Freire RN RN fu Wadley, Terrence, MD MD tw4 Corrections: (The following items were deleted from the chart) 05/25 23:55 23:55 Hospitalization Ordered by Deng Almanza MD for Inpatient Admission. Preliminary tw4 diagnosis is Unstable angina. Bed requested for Telemetry/MedSurg (Inpatient). Status is Inpatient Admission. Condition is Stable. Problem is an ongoing problem. Symptoms have improved. tw4 05/26 01:20 04 23:55 05/26/2019 23:55 Hospitalization Ordered by Deng Almanza MD for Inpatient cg Admission. Preliminary diagnosis is Unstable angina; Chronic kidney disease, stage 4 (severe). Bed requested for Telemetry/MedSurg (Inpatient). Status is Inpatient Admission. Condition is Stable. Problem is an ongoing problem. Symptoms have improved. tw4 05/26 02:35 01:20 05/26/2019 23:55 Hospitalization Ordered by Deng Almanza MD for Inpatient fu Admission. Preliminary diagnosis is Unstable angina; Chronic kidney disease, stage 4 (severe). Bed requested for Telemetry/MedSurg (Inpatient). Status is Inpatient Admission. Condition is Stable. Problem is an ongoing problem. Symptoms have improved. cg
[2019-05-27] MEDS ORDERED: NITROGLYCERIN 1 GM PKT TD ONE (00:05)
[2019-05-27] MEDS ORDERED: ENOXAPARIN 80 MG/0.8 ML SQ ONE (00:06)
--- NOTE | 2019-05-27 00:20 | P.HP ---
Certification for Inpatient With expected LOS: >2 Midnights Patient will require the following post-hospital care: None Practitioner: I am a practitioner with admitting privileges, knowledge of patient current condition, hospital course, and medical plan of care. Services: Services provided to patient in accordance with Admission requirements found in Title 42 Section 412.3 of the Code of Federal Regulations Patient History Date of Service: 05/27/19 Reason for admission: Substernal chest pain History of Present Illness: 78-year-old female with past medical history of hypertension, CAD status post multiple PCIs, including [address] elevation [place] in the last 6 months, last was 3 months ago. Patient follows with Dr. Arteaga. States she usually gets all angioplasty done at the [facility]. She has been having substernal chest pain worse with activity since the last 1 week but typically relieved by nitro. Onset of chest pain today was 2 hr prior to presentation. Chest pain however was not relieved by his usual sublingual nitro. She had called EMS and after a 4th nitro chest pain decreased to 6/10 from 11/29. She is currently chest pain-free now. She denies any shortness of breath, cough, dizziness, nausea, or vomiting. She has complained of low back pain from lying in the stretcher. Allergies iodine [Iodine] Allergy (Severe, Verified 11/20/18 20:58) throat swelling diphenhydramine HCl [From Benadryl] Allergy (Verified 11/20/18 20:58) Anaphylaxis morphine Allergy (Verified 11/20/18 20:58) Unknown Sulfa (Sulfonamide Antibiotics) Allergy (Verified 11/20/18 20:58) Nausea/Vomiting sulfamethoxazole [From Bactrim] Allergy (Verified 11/20/18 20:58) Nausea/Vomiting trimethoprim [From Bactrim] Allergy (Verified 11/20/18 20:58) Nausea/Vomiting levofloxacin [From Levaquin] Adverse Reaction (Severe, Verified 11/20/18 20:58) vomiting metoclopramide [From Reglan] Adverse Reaction (Verified 11/20/18 20:58) Nausea/Vomiting promethazine [From Phenergan] Adverse Reaction (Verified 11/20/18 20:58) Nausea/Vomiting Narcotics Allergy (Severe, Uncoded 11/20/18 20:58) Anaphylaxis Home medications list reviewed: Yes Home Medications: Atorvastatin Calcium [Lipitor] 80 mg PO BEDTIME 08/22/18 Bumetanide [Bumex*] 1 mg PO BID 08/22/18 Clopidogrel Bisulfate [Plavix*] 75 mg PO DAILY 08/22/18 Folic Acid 1 mg PO DAILY 08/22/18 Nitroglycerin [Nitrostat*] 0.4 mg SL SEECOM 08/22/18 Cholecalciferol (Vitamin D3) [Vitamin D 5,000 IU Cap*] 5,000 unit PO DAILY #30 cap 09/03/18 Insulin Degludec [Tresiba Flextouch U-200] 10 unit SQ BEDTIME #30 ml 09/03/18 Linagliptin [Tradjenta] 5 mg PO DAILY 09/10/18 carvediloL [Coreg*] 6.25 mg PO BID #60 tab 09/21/18 Cranberry With Vitamin C 1 tab PO DAILY 11/20/18 Ferrous Sulfate 1 tab PO BID 11/20/18 calcitrioL [Calcitriol] 1 cap PO DAILY 11/20/18 Ciprofloxacin HCl 500 mg PO DAILY #3 tablet 11/22/18 - Past Medical/Surgical History Diabetic: Yes -: Diabetes mellitus type 2 -: Hypertension -: Chronic renal disease -: Broken tani shoulders, toes tani feet, L elbow hx -: Cataract -: History DVT to the left lower extremity -: Hyperlipidemia -: CAD with multiple stents -: Peripheral vascular disease -: Carotid arterial disease -: History of osteomyelitis -: Severe cervical spine disease -: Cardiac Cath with 3 stents -: 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 She has 6 children - Family History Father -: GI disease, Cancer Mother -: GI disease, Stroke, Other (see notes) Notes: brain tumor Brother -: Heart disease, Hypertension, Diabetes, Kidney disease Sister -: Heart disease, Hypertension, GI disease - Social History Smoking Status: Current some day smoker Alcohol use: No CD- Drugs: No Caffeine use: Yes Review of Systems 10-point ROS is otherwise unremarkable Physical Examination - Physical Exam General: Alert, Oriented x3 HEENT: Atraumatic, Normocephalic, PERRLA Neck: Supple, 2+ carotid pulse no bruit Cardiovascular: Normal pulses, Regular rate/rhythm, Normal S1 S2 Gastrointestinal: Normal bowel sounds, Soft and benign, Non-distended Musculoskeletal: No clubbing, No swelling Integumentary: No rashes, No breakdown Neurological: Normal speech, Normal strength at 5/5 x4 extr, Normal tone - Studies Laboratory Data (last 24 hrs) 05/26/19 22:22: PT 11.3, INR 0.96 05/26/19 22:22: WBC 6.0, Hgb 12.4, Hct 37.5, Plt Count 208 05/26/19 22:22: Sodium 134 L, Potassium 4.3, BUN 80 H, Creatinine 3.65 H, Glucose 417 H*, Magnesium 2.3, Total Bilirubin 0.3, AST 14 L, ALT 11 L, Alkaline Phosphatase 124 H Imagings Data: ekg - norn specific ST chnages Assessment and Plan - Problems (Diagnosis) (1) Elevated troponin Current Visit: No Status: Acute (2) Renal insufficiency Onset Date: 06/20/16 Current Visit: No Status: Acute (3) Congestive heart failure Current Visit: No Status: Chronic Qualifiers: Heart failure type: diastolic Heart failure chronicity: chronic Qualified Code(s): I50.32 - Chronic diastolic (congestive) heart failure (4) Diabetes mellitus Onset Date: 07/31/14 Current Visit: No Status: Chronic Qualifiers: Diabetes mellitus type: type 2 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 insulin use: with fci use Diabetes mellitus complication status: with kidney complications Diabetes mellitus complication detail: with chronic kidney disease (5) Hypertension Onset Date: 12/08/16 Current Visit: No Status: Chronic Qualifiers: Hypertension type: essential hypertension (6) Chest pain Onset Date: 05/16/14 Current Visit: No Status: Resolved - Advance Directives Does patient have a Living Will: Yes Does patient have a Durable POA for Healthcare: Yes Physician Review: Patient Assessed, Agree with Above Assessment and Plan Physician Review Additional Text: # chest pain-with elevated troponin-may be due to non ST elevation [place] -follow serial set of cardiac enzymes. -Dr. Arteaga discussed with , will see in am , -will place nitro patch now and follow -c/w plavix /aspirin and other regime -If worsening elevated troponin might need repeat cardiac catheterization #Hypertension-controlled, resume home regimen #CKD stage 4-follows with Dr. out clinical #DVT prophylaxis-on chronic anticoagulation #Diabetes mellitus - do insulin with Accu-Cheks Advance directive , pt is full code Time Spent Managing Pts Care (In Minutes): 75
[2019-05-27] MEDS ORDERED: ONDANSETRON 4 MG/2 ML VIAL IV PRN (00:49)
[2019-05-27] MEDS ORDERED: ALBUTEROL 2.5 MG/3 ML NEB SOL NEB PRN ×2 (00:49→15:00)
[2019-05-27] MEDS ORDERED: D50W 25 GM/50 ML SYRINGE/VIAL IV PRN (00:54)
[2019-05-27] MEDS ORDERED: HYDRALAZINE HCL 20 MG/ML VIAL IV PRN (00:54)
[2019-05-27] MEDS: NITROGLYCERIN 0.2 MG/HR (5 MG) PATCH TD SCH ×2 (00:54→09:00)
[2019-05-27] MEDS ORDERED: GLUCAGON 1 MG/VIAL IM PRN (00:54)
[2019-05-27 02:45] VITALS: O2SAT 98
[2019-05-27] MEDS: INSULIN -REGULAR HUMAN 50 UNIT/0.5 ML ML SQ SCH ×3 (03:07→11:30)
[2019-05-27 03:18] VITALS: BMI 28.9
[2019-05-27] MEDS: NITROGLYCERIN 0.4 MG/TAB SL PRN ×3 (05:23→05:33)
[2019-05-27] MEDS ORDERED: NITROGLYCERIN 0.4 MG/TAB SL ONE (05:26)
[2019-05-27] MEDS ORDERED: ACETAMINOPHEN 325 MG TABLET PO PRN (05:50)
--- NOTE | 2019-05-27 07:37 | P.PN ---
Subjective Date of Service: 05/27/19 Chief Complaint: Substernal chest pain Subjective: Worsening Patient seen and examined chart reviewed and case discussed with RN and Dr. Arteaga. Patient had couple of episodes of chest pain overnight her cardiac enzymes have been elevated. Pain improved with sublingual nitro. Review of Systems 10-point ROS is otherwise unremarkable Respiratory: As per HPI Physical Examination - Vital Signs Temperature: 97.1 F Blood Pressure: 107/53 Pulse: 76 Respirations: 16 Pulse Ox (%): 97 - Physical Exam General: Alert, Oriented x3, Mild distress, Other (Elderly ill-appearing female) HEENT: Atraumatic, PERRLA, EOMI Neck: Supple, JVD not distended Respiratory: Clear to auscultation bilaterally, Normal air movement Cardiovascular: No edema, Normal pulses, Regular rate/rhythm, Normal S1 S2 Gastrointestinal: Normal bowel sounds, Soft and benign, Non-distended, No tenderness Musculoskeletal: No clubbing, No tenderness Integumentary: No rashes, No erythema Neurological: Normal speech, Normal strength at 5/5 x4 extr, Normal tone, Cranial nerves 3-12 intact, Normal affect - Studies Laboratory Data (last 24 hrs) 05/26/19 22:22: PT 11.3, INR 0.96 05/26/19 22:22: WBC 6.0, Hgb 12.4, Hct 37.5, Plt Count 208 05/26/19 22:22: Sodium 134 L, Potassium 4.3, BUN 80 H, Creatinine 3.65 H, Glucose 417 H*, Magnesium 2.3, Total Bilirubin 0.3, AST 14 L, ALT 11 L, Alkaline Phosphatase 124 H Medications List Reviewed: Yes Assessment And Plan Physician Review Additional Text: # non ST elevation [place]. -cardiac enzymes. Elevated at 0.34 -Dr. Arteaga on the case. -will place nitro patch now and follow -c/w plavix /aspirin beta-joyce and statin -If worsening elevated troponin might need repeat cardiac catheterization -patient requiring multiple doses of nitro on top of patch. #Hypertension-controlled, resume home regimen #CKD stage 4-follows with Dr. King. Monitor creatinine level. Avoid NSAIDs. Creatinine around baseline. # chronic diastolic heart failure. Stable monitor I/Os avoid excessive fluids #DVT prophylaxis-on chronic anticoagulation #Diabetes mellitus type 2 noninsulin- continue with sliding scale insulin with Accu-Cheks # coronary artery disease hopi artery hopi heart with angina. Continue home medications
--- NOTE | 2019-05-27 08:32 | P.DS ---
Admission Date: 05/27/19 Discharge Date: 05/27/19 Disposition: ROUTINE DISCHARGE Discharge Condition: FAIR Reason for Admission: Substernal chest pain Consultations: Cardiology Dr. Arteaga Brief History of Present Illness: From H and P 78-year-old female with past medical history of hypertension, CAD status post multiple PCIs, including 2 [address] elevation [place] in the last 6 months, last was 3 months ago. Patient follows with Dr. Arteaga. States [facility] She has been having substernal chest pain worse with activity since the last 1 week but typically relieved by nitro. Onset of chest pain today was 2 hr prior to presentation. Chest pain however was not relieved by his usual sublingual nitro. She had called EMS and after a 4th nitro chest pain decreased to 6/10 from 10/10. She is currently chest pain-free now. She denies any shortness of breath, cough, dizziness, nausea, or vomiting. She has complained of low back pain from lying in the stretcher. Hospital Course: Patient is a 78-year-old female with past medical history of coronary artery disease diabetes hypertension CHF chronic kidney disease who has had multiple recent hospitalizations for similar issues. Patient comes in with chest pain. Found to have elevated cardiac enzymes. No new changes on EKG. Patient seen by cardiology Dr. Arteaga who recommended no further intervention. Patient has creatinine close to 4 not a candidate for catheterization. Cardiology recommended medical management. The next day was added. Patient was asymptomatic. Patient was then cleared for discharge and sent home in a stable condition. Patient is to follow up closely with cardiology for her chest pain. Patient does seem very anxious as well. Pills and to follow up with her other specialists including her kidney doctor. # non ST elevation [place]. Medical management #Hypertension-controlled, resume home regimen #CKD stage 4-follows with Dr. King. Monitor creatinine level. Avoid NSAIDs. Creatinine around baseline. # chronic diastolic heart failure. Stable monitor I/Os avoid excessive fluids #DVT prophylaxis-on chronic anticoagulation #Diabetes mellitus type 2 noninsulin- continue with sliding scale insulin with Accu-Cheks # coronary artery disease [place] artery [place] heart with angina. Continue home medications Vital Signs/Physical Exam: Temp Pulse Resp BP Pulse Ox 97.1 F 76 16 107/53 L 97 05/27/19 07:39 05/27/19 07:39 05/27/19 07:39 05/27/19 07:39 05/27/19 07:39 Other Physical/Emotional Findings: PLEASE SEE PROGRESS NOTE FROM THE DATE OF DISCHARGE FOR PHYSICAL EXAM FINDINGS Laboratory Data at Discharge: WBC 6.0 K/uL (4.3-10.9) 05/26/19 22:22 Hgb 12.4 g/dL (12.0-15.0) 05/26/19 22:22 Hct 37.5 % (36.0-45.0) 05/26/19 22:22 Plt Count 208 K/uL (152-406) 05/26/19 22:22 PT 11.3 SECONDS (9.5-12.5) 05/26/19 22:22 INR 0.96 05/26/19 22:22 Sodium 134 mmol/L (136-145) L 05/26/19 22:22 Potassium 4.3 mmol/L (3.5-5.1) 05/26/19 22:22 BUN 80 mg/dL (7-18) H 05/26/19 22:22 Creatinine 3.65 mg/dL (0.55-1.3) H 05/26/19 22:22 Glucose 417 mg/dL (74-106) H* 05/26/19 22:22 Magnesium 2.3 mg/dL (1.8-2.4) 05/26/19 22:22 Total Bilirubin 0.3 mg/dL (0.2-1.0) 05/26/19 22:22 AST 14 U/L (15-37) L 05/26/19 22:22 ALT 11 U/L (12-78) L 05/26/19 22:22 Alkaline Phosphatase 124 U/L (45-117) H 05/26/19 22:22 Troponin I 0.34 ng/mL (0.0-0.045) H 05/27/19 06:20 Home Medications: Atorvastatin Calcium [Lipitor] 80 mg PO BEDTIME 08/22/18 Bumetanide [Bumex*] 1 mg PO BID 08/22/18 Clopidogrel Bisulfate [Plavix*] 75 mg PO DAILY 08/22/18 Folic Acid 1 mg PO DAILY 08/22/18 Nitroglycerin [Nitrostat*] 0.4 mg SL SEECOM 08/22/18 Linagliptin [Tradjenta] 5 mg PO DAILY 09/10/18 calcitrioL [Calcitriol] 1 cap PO DAILY 11/20/18 Aspirin Chewable [Aspirin Chewable*] 1 tab PO DAILY 05/27/19 Insulin Degludec [Tresiba Flextouch U-200] 12 units SQ DAILY 05/27/19 Metoprolol Tartrate [Lopressor*] 1 tab PO BID 05/27/19 Pantoprazole Sodium [Protonix] 1 tab PO DAILY 05/27/19 Ashlee Probiotics 1 cap PO DAILY 05/27/19 Ranolazine [Ranexa] 500 mg PO BID #60 tab.er.12h 05/27/19 New Medications: Ranolazine [Ranexa] 500 mg PO BID #60 tab.er.12h Patient Discharge Instructions: Follow up with primary care physician in 1 week. Follow up with traveling accountant Dr. Arteaga in 2 weeks. Return to ER for worsening condition Diet: Low sodium (1500 mL fluid restriction) Activity: Ad karolyn Time spent managing pt's care (in minutes): 45
[2019-05-27 08:57] VITALS: TEMP 97.7
[2019-05-27] MEDS ORDERED: FERROUS SULFATE 325 MG TAB PO SCH (09:00)
[2019-05-27] MEDS ORDERED: FAMOTIDINE 20 MG TAB PO SCH (09:00)
[2019-05-27] MEDS ORDERED: BUMETANIDE 1 MG TABLET PO SCH (09:00)
[2019-05-27] MEDS ORDERED: CLOPIDOGREL 75 MG TABLET PO SCH (09:00)
[2019-05-27] MEDS ORDERED: INSULIN DEGLUDEC 12 UNIT SQ SCH (09:00)
[2019-05-27] MEDS ORDERED: METOPROLOL TAR 50 MG TAB PO SCH (09:00)
[2019-05-27] MEDS ORDERED: ASPIRIN EC 81 MG TAB PO SCH (09:00)
[2019-05-27] MEDS ORDERED: ENOXAPARIN 80 MG/0.8 ML SQ SCH ×2 (09:00→21:00)
[2019-05-27] MEDS ORDERED: HOME MED 1 EA UNK (Linagliptin [Tradjenta] 5 MG) PO SCH (09:00)
[2019-05-27] MEDS ORDERED: CALCITROL 0.25 MCG CAP PO SCH (09:00)
[2019-05-27 12:11] VITALS: BP 133/60
--- NOTE | 2019-05-27 13:03 | P.CNS ---
Date of Consult: 05/27/19 Reason for Consult: OTIS/ CKD Requesting Physician: Deng Almanza Chief Complaint: Substernal chest pain History of Present Illness: 78 yo HF CKD, DM, CAD presented to the ER with less than 24hours of severe, substernal, non-radiating chest pain, worse with activity. 78-year-old female with past medical history of hypertension, CAD status post multiple PCIs, including [address] elevation [place] in the last 6 months, last was 3 months ago. Patient follows with Dr. Arteaga. States she usually gets all angioplasty done at the [facility]. She has been having substernal chest pain worse with activity since the last 1 week but typically relieved by nitro. Onset of chest pain today was 2 hr prior to presentation. Chest pain however was not relieved by his usual sublingual nitro. She had called EMS and after a 4th nitro chest pain decreased to 6/10 from 10/10. She is currently chest pain-free now. She denies any shortness of breath, cough, dizziness, nausea, or vomiting. 22:43 This 78 yrs old Female presents to ER via EMS with complaints of Chest Pain. tw4 22:43 The patient or guardian reports chest pain that is located primarily in the anterior tw4 chest wall, left. Onset: today. The pain does not radiate. Associated signs and symptoms: The patient has no apparent associated signs or symptoms. The chest pain is described as a heaviness. Duration: The patient or guardian reports a single episode. Severity of pain: At its worst the pain was severe a 10 / 10 in the emergency department the pain has improved is a 5 / 10. The patient has not experienced similar symptoms in the past. Allergies iodine [Iodine] Allergy (Severe, Verified 11/20/18 20:58) throat swelling morphine Allergy (Severe, Verified 05/27/19 03:20) paralysis diphenhydramine HCl [From Benadryl] Allergy (Verified 11/20/18 20:58) Anaphylaxis Sulfa (Sulfonamide Antibiotics) Allergy (Verified 11/20/18 20:58) Nausea/Vomiting sulfamethoxazole [From Bactrim] Allergy (Verified 11/20/18 20:58) Nausea/Vomiting trimethoprim [From Bactrim] Allergy (Verified 11/20/18 20:58) Nausea/Vomiting levofloxacin [From Levaquin] Adverse Reaction (Severe, Verified 11/20/18 20:58) vomiting metoclopramide [From Reglan] Adverse Reaction (Verified 11/20/18 20:58) Nausea/Vomiting promethazine [From Phenergan] Adverse Reaction (Verified 11/20/18 20:58) Nausea/Vomiting Narcotics Allergy (Severe, Uncoded 05/27/19 03:20) Anaphylaxis Home medications list reviewed: Yes Home Medications: Atorvastatin Calcium [Lipitor] 80 mg PO BEDTIME 08/22/18 Bumetanide [Bumex*] 1 mg PO BID 08/22/18 Clopidogrel Bisulfate [Plavix*] 75 mg PO DAILY 08/22/18 Folic Acid 1 mg PO DAILY 08/22/18 Nitroglycerin [Nitrostat*] 0.4 mg SL SEECOM 08/22/18 Linagliptin [Tradjenta] 5 mg PO DAILY 09/10/18 calcitrioL [Calcitriol] 1 cap PO DAILY 11/20/18 Aspirin Chewable [Aspirin Chewable*] 1 tab PO DAILY 05/27/19 Insulin Degludec [Tresiba Flextouch U-200] 12 units SQ DAILY 05/27/19 Metoprolol Tartrate [Lopressor*] 1 tab PO BID 05/27/19 Pantoprazole Sodium [Protonix] 1 tab PO DAILY 05/27/19 Ashlee Probiotics 1 cap PO DAILY 05/27/19 Ranolazine [Ranexa] 500 mg PO BID #60 tab.er.12h 05/27/19 - Past Medical/Surgical History Diabetic: Yes -: Diabetes mellitus type 2 -: Hypertension -: Chronic renal disease stage 4 -: Broken tani shoulders, toes tani feet, L elbow hx -: Cataract -: History DVT to the left lower extremity -: Hyperlipidemia -: CAD with multiple stents -: Peripheral vascular disease -: Carotid arterial disease -: History of osteomyelitis -: Severe cervical spine disease -: heart stents 8-9x; last one was Mar 2019 -: 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 She has 6 children - Family History Father Medical History: GI disease, Cancer Notes: stomach Mother Medical History: GI disease, Stroke, Other (see notes) Notes: brain tumor Brother Medical History: Heart disease, Hypertension, Diabetes, Kidney disease Notes: stomach CA Sister Medical History: Heart disease, Hypertension, GI disease - Social History Smoking Status: Never smoker Alcohol use: No CD- Drugs: No Caffeine use: Yes Place of Residence: Home Review of Systems 10-point ROS is otherwise unremarkable General: Weakness Respiratory: SOB with Excertion Cardiovascular: Chest Pain Physical Examination Temp Pulse Resp BP Pulse Ox 97.7 F 71 16 133/60 98 05/27/19 12:00 05/27/19 12:00 05/27/19 12:00 05/27/19 12:00 05/27/19 12:00 General: Oriented x3, Cooperative HEENT: Atraumatic, Mucous membr. moist/pink Neck: Supple Respiratory: Clear to auscultation bilaterally Cardiovascular: No edema, Regular rate/rhythm Gastrointestinal: Soft and benign, Non-distended, No guarding Musculoskeletal: No clubbing, No contractures Integumentary: No rashes, No cyanosis Neurological: Normal speech Laboratory Data (last 24 hrs) 05/26/19 22:22: PT 11.3, INR 0.96 05/26/19 22:22: WBC 6.0, Hgb 12.4, Hct 37.5, Plt Count 208 05/26/19 22:22: Sodium 134 L, Potassium 4.3, BUN 80 H, Creatinine 3.65 H, Glucose 417 H*, Magnesium 2.3, Total Bilirubin 0.3, AST 14 L, ALT 11 L, Alkaline Phosphatase 124 H Imagings Data: EXAM DESCRIPTION: RAD - Chest Single View - 05/26/2019 10:01 pm CLINICAL HISTORY: CHEST PAIN Chest pain. COMPARISON: Chest Single View dated 03/19/2019; Chest Single View dated 2018; Chest Single View dated 12/20/2018; Chest Single View dated 11/20/2018 FINDINGS: Portable technique limits examination quality. The lungs are emphysematous but grossly clear. The heart is upper limit of normal in size. No displaced fractures. IMPRESSION: Mild COPD. Conclusions/Impression: A/ CKD IV/ V in the setting of HTN & DM. Hyponatremia. Alkalosis. DM II with CKD. HTN with CKD/ CHF. Diastolic CHF, chronic. Anemia in CKD GREGORY/ Secondary HyperPTH. CAD, multi-vessel sp stents. P/ Continue current POC and Medications. Continue Bumex therapy. Restart home medications as indicated. Low sodium diet. No NSAIDs. AM labs PRN. Daily weight. Thank you kindly for the consultation. Case reviewed with Dr. Arteaga; no cardiac intervention recommended at this time. The patient will consider dialysis if necessary.
--- NOTE | 2019-05-27 16:48 | EKG ---
Test Date: 2019-05-27 Test Time: 05:41:09 Hunting Sales Associate: RT MEASUREMENT RESULTS: Intervals: Rate: 69 WA: 182 QRSD: 108 QT: 476 QTc: 510 [place]: P: 63 [place]: 182 QRS: 35 T: 111 INTERPRETIVE STATEMENTS: Normal sinus rhythm Low voltage QRS Incomplete left bundle branch block Nonspecific ST and T wave abnormality Prolonged QT Abnormal ECG Compared to ECG 03/19/2019 13:01:06 Low QRS voltage now present ST (T wave) deviation now present T-wave abnormality no longer present Electronically Signed On 05-27-19 16:47:21 CDT by Portillo Arteaga
--- NOTE | 2019-05-27 16:49 | EKG ---
Test Date: 2019-05-26 Test Time: 21:59:54 Earth Science Technical Officer: NICKY MEASUREMENT RESULTS: Intervals: Rate: 77 AK: 178 QRSD: 106 QT: 440 QTc: 497 [place]: P: 63 AK: 178 QRS: 43 T: 103 INTERPRETIVE STATEMENTS: Normal sinus rhythm Nonspecific ST and T wave abnormality Prolonged QT Abnormal ECG Compared to ECG 03/19/2019 13:01:06 ST (T wave) deviation now present Left bundle-branch block no longer present T-wave abnormality no longer present Electronically Signed On 05-27-19 16:47:26 CDT by Portillo Arteaga
--- NOTE | 2019-05-27 19:50 | CON ---
Date of Consultation: 05/27/[address] Muse's service on 05/27/2019. I saw the patient on 05/27/2019. Reason For Consultation: Chest pain. History Of Present Illness: Ms. Gonzalez is a 78-year-old woman, very well-known to me from previous office visits and admissions. She has a history of severe renal insufficiency with a creatinine now of 3.65. She is followed by Dr. King. She also has a history of diastolic congestive heart fail ure, dyslipidemia, diabetes, and gastroesophageal reflux disease. Her coronary artery disease situat ion had been rather very complicated. I initially did a heart catheterization on her and referred he r for a bypass surgery. Patient is a [employer] and refuses any blood products and because of her kidney dysfunction, she was considered to be very high risk for open heart surgery. She underwe nt left main and circumflex and RCA as well as LAD angioplasties and stents at [facility] an d has since then had multiple admissions, one of them was for restenosis. The last catheterization t here showed no significant restenosis. She had a kink in her RCA stent then and she was treated medi mane. She comes back with chest pain, which she has rather frequently, sometimes for a minute or tw o, but this one was more prolonged. Her troponin was 0.32, which is really chronic for her. She was pain-free when I saw her. Denied any nausea, vomiting, diaphoresis, PND, orthopnea, pedal edema, pa lpitation, or syncope. Allergies: SHE IS ALLERGIC TO IODINE, MORPHINE, AND SULFA. Medications: Aspirin, Lipitor, Tradjenta, Lopressor, Protonix, Bumex, Plavix, and insulin. Review of Systems: Negative. Social History: Negative. Family History: Noncontributory. Physical Examination: General: Ms. Gonzalez was very pleasant. No acute distress. No chest pain. Vital Signs: Stable, afebrile. HEENT: Negative. Neck: Supple without any bruit, lymphadenopathy, JVD, or thyromegaly. Chest: Clear to auscultation and percussion. Cardiac: Revealed a regular rhythm and rate. No murmurs, gallops, or rubs. Abdomen: Benign. Extremities: No clubbing, cyanosis, or edema. Diagnostic Data: Stated earlier. I will add creatinine of 3.65, glucose is 328. Troponin is 0.32, BNP is 7140. Chest x-ray shows COPD. Last echocardiogram in November of 2018 showed a normal ejectio n fraction. Her EKG was normal rhythm with nonspecific changes. Impression And Plan: Stable angina. No acute coronary syndrome. Her troponin is chronically elevat ed because of her kidney dysfunction and chronic coronary artery disease that is pretty severe. I di scussed the case with Dr. King. Ms. Gonzalez will shortly going to renal failure if we do any mor e invasive studies on her at this point. The case was discussed with her ball racker at [facility] as well. She is pain-free for now. I would recommend that she increases her beta-joyce, continue the rest of her medication, add Ranexa 500 mg one p.o. b.i.d. Hopefully, medical therapy would suffi ce for now. I think Ms. Gonzalez does understand that if we have to perform any further cardiac inva sive workup, she may end up on dialysis and she is actually agreeable to that. So, we will see how s he does with this new regimen. She had tried Ranexa before and I am not really so sure why she stopp ed it. It may have been expensive or that she does not tolerate it, but she knew she was going to ge t back on it and we will see how she does with it. Her other problems include diabetes which is poor ly controlled, dyslipidemia well controlled, gastroesophageal reflux disease, and chronic diastolic c ongestive heart failure that seem to be stable at this point. I will continue to follow her as an outpatient, but from my standpo int, she can go home today. ALEJANDRO/LIO Voice ID: [id number] Report ID: [id number]
[2019-05-27] MEDS ORDERED: ATORVASTATIN 80 MG TAB PO SCH (21:00)
[2019-05-27] MEDS ORDERED: INSULIN DEGLUDEC 10 UNIT SQ SCH (21:00)
--- NOTE | 2019-05-28 09:14 | ECHO ---
WEIGHT: 5 ft 1 in WEIGHT: 153 lb 0 oz DATE OF STUDY: 05/27/[address]: Juanito Muse MD 2-DIMENSIONAL: YES M.MODE: YES DOPPLER: YES COLOR FLOW: YES TDS: PORTABLE: DEFINITY: BUBBLE STUDY: DIAGNOSIS: CHEST PAIN, NSTEMI CARDIAC HISTORY: CATHERIZATION: NO SURGERY: NO PROSTHETIC VALVE: NO PACEMAKER: NO MEASUREMENTS (cm) DIASTOLIC (NORMALS) SYSTOLIC (NORMALS) IVSd 1.5 (0.6-1.2) LA Diam 3.5 (1.9-4.0) LVEF 58% LVIDd 4.2 (3.5-5.7) LVIDs 2.9 (2.0-3.5) %FS 30% LVPWd 1.3 (0.6-1.2) Ao Diam 2.7 (2.0-3.7) 2 DIMENSIONAL ASSESSMENT: RIGHT ATRIUM: NORMAL LEFT ATRIUM: NORMAL RIGHT VENTRICLE: NORMAL LEFT VENTRICLE: LEFT VENTRICULAR HYPERTROPHY TRICUSPID VALVE: NORMAL MITRAL VALVE: MITRAL ANNULAR CALCIFICATION PULMONIC VALVE: NORMAL AORTIC VALVE: NORMAL PERICARDIAL EFFUSION: NONE AORTIC ROOT: NORMAL LEFT VENTRICULAR WALL MOTION: NORMAL DOPPLER/COLOR FLOW: TRACE TRICUSPID REGURGITATION - NO PULMONARY HYPERTENSION. COMMENTS: NORMAL LEFT VENTRICULAR FUNCTION. EJECTION FRACTION 58%. MITRAL ANNULAR CALCIFICATION. NO WALL MOTION ABNORMALITY. NO EFFUSION. TECHNOLOGIST: JOHANNE GOMEZ
== END 2019-05-27 14:35 | disposition home or self-care (01) ==
LOC: ER 21:32 → ERHOLD 05-27 01:18 → INTOOBSV 05-27 01:18 → 2ND 05-27 02:00
PROVIDERS: ADMIT Internal Medicine; ATTEND Family Medicine
DX: I21.4 Non-ST elevation (NSTEMI) myocardial infarction (principal); I13.2 Hypertensive heart and chronic kidney disease with heart failure and with stage 5 chronic kidney disease, or end stage renal disease; I50.32 Chronic diastolic (congestive) heart failure; N18.5 Chronic kidney disease, stage 5; E11.22 Type 2 diabetes mellitus with diabetic chronic kidney disease; E11.65 Type 2 diabetes mellitus with hyperglycemia; D63.1 Anemia in chronic kidney disease; I25.119 Atherosclerotic heart disease of native coronary artery with unspecified angina pectoris; I73.9 Peripheral vascular disease, unspecified; E78.5 Hyperlipidemia, unspecified; E87.1 Hypo-osmolality and hyponatremia; E87.3 Alkalosis; K21.9 Gastro-esophageal reflux disease without esophagitis; J44.9 Chronic obstructive pulmonary disease, unspecified; I25.2 Old myocardial infarction; E21.3 Hyperparathyroidism, unspecified; F17.210 Nicotine dependence, cigarettes, uncomplicated; Z79.4 Long term (current) use of insulin; Z79.02 Long term (current) use of antithrombotics/antiplatelets; Z95.5 Presence of coronary angioplasty implant and graft; Z86.718 Personal history of other venous thrombosis and embolism; Z88.2 Allergy status to sulfonamides; Z88.3 Allergy status to other anti-infective agents; Z88.5 Allergy status to narcotic agent; Z88.8 Allergy status to other drugs, medicaments and biological substances; Z91.041 Radiographic dye allergy status; Z82.3 Family history of stroke; Z82.49 Family history of ischemic heart disease and other diseases of the circulatory system; Z84.1 Family history of disorders of kidney and ureter; Z83.3 Family history of diabetes mellitus; Z80.0 Family history of malignant neoplasm of digestive organs
CPT/HCPCS: 93005 ×2; 93306; 85025; 80048; 36415; 83735; 85610; 82947 ×3; 80076; 84484 ×3; 83880; 71045; 96372; 99285; J1650; G0378 ×2

== ENCOUNTER 2019-06-18 10:37 | Emergency (ER) | payer OTHER ==
--- OUTSIDE RECORDS SUMMARY | 2019-06-18 10:51 | XMS REPORT ---
:1940 Author Organization [employer] Care Team Providers Name Role Phone John Perry Provider Role Unavailable Allergies, Adverse Reactions, Alerts Substance Reaction Event Type Levaquin Info Not Available Drug Allergy Benadryl Info Not Available Drug Allergy Amiodarone HCl Info Not Available Drug Allergy ALL PAIN NARCOTICS Swelling of throat, hands Non Drug Aller gy CONTRAST DYE Info Not Available Non Drug Allergy Problems Problem Type Condition Code Onset Dates Condition Statu s Assessment Hypertensive heart disease without I11.9 Active heart failure Assessment 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 Ac tive classified elsewhere Assessment Type 2 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 Assessment Chronic kidney disease, stage 4 N18.4 Active (severe) Assessment Chronic systolic congestive heart I50.22 Active failure Assessment Coronary artery disease involving I25.110 Active [place] coronary artery of [place] heart with unstable angina pectoris Assessment Atrial flutter, unspecified type I48.92 Active Assessment Chest pain, unspecified type R07.9 Active Problem Mixed hyperlipidemia E78.2 Active Problem Cervical stenosis of spine M48.02 A ctive Problem Type 2 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 Problem H/O stroke without residual Z86.73 Active deficits Problem Pain, joint, knee, right M25.561 Act diandra Problem Primary osteoarthritis of left knee M17.12 Active Problem 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 knee Problem History of cholecystectomy Z90.49 A ctive Problem Stented coronary artery Z95.5 Acti ve Problem Proteinuria, unspecified R80.9 Act diandra Problem Cervical stenosis (uterine cervix) N88.2 Active Assessment Cervical stenosis of spine M48.02 A ctive Problem Atrial flutter, unspecified type I48.92 Active Problem Primary hypersomnia F51.11 Active Assessment Adult BMI 36.0-36.9 kg/sq m Z68.36 Active Problem Adult BMI 36.0-36.9 kg/sq m Z68.36 Active Assessment H/O stroke without residual Z86.73 Active deficits Problem Acute pain of left knee M25.562 Acti ve Assessment 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 Active Problem 3-vessel coronary artery disease I25.10 Active Assessment 3-vessel coronary artery disease I25.10 Active Problem Coronary artery disease involving I25.110 Active [place] coronary artery of [place] heart with unstable angina pectoris Assessment Left sided numbness R20.0 Active Problem At risk for falling Z91.81 Active Assessment Proteinuria, unspecified R80.9 Act diandra Problem Atherosclerosis of [place] coronary I25.10 Active artery Assessment Mixed hyperlipidemia E78.2 Active Problem Chronic kidney disease (CKD), stage N18.4 Active IV (severe) Assessment History of coronary artery stent Z95.5 Active placement Problem Other osteoporosis M81.8 Active Assessment Other osteoporosis M81.8 Active Problem Hypertensive heart disease without I11.9 Active heart failure Assessment At risk for falling Z91.81 Active Problem senior living current 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 Z79.4 Active Problem 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 Ac tive classified elsewhere Problem Chronic kidney disease, stage 4 N18.4 Active (severe) Medications Medication Code Code Instructions Start End Status Dosage System Date Date Lactobacillus NDC 0 Active not defined Cyanocobalamin [facility] [address]-37 1000 MCG Orally Act diandra 1 tablet Once a day Thiamine HCl ND 13632632704 100 MG Orally Active 1 tablet Once a day Tresiba FlexTouch [facility] 36966329642 200 UNIT/ML Active 10 units Subcutaneous daily Humalog [facility] 42707223474 100 UNIT/ML Active as Subcutaneous directed Clopidogrel ND 54314612495 75 MG Orally Active 1 t ablet Bisulfate Once a day Folic Acid ND 31319582931 1 MG Active TAKE 1 TABLET BY MOUTH EVERY DAY Senna S [facility] 63929311305 8.6-50 MG Active 1 tablet Orally Once a in the day evening as needed Nitrostat [facility] 59123295690 0.4 MG Active as Sublingual 3 directed doses within 15 minutes PRN CHEST PAIN Plavix [facility] 30097811869 75 MG Orally Active 1 table t Once a day Ferrous Sulfate [facility] 55960301503 325 (65 Fe) MG Activ e TAKE 1 Oral TABLET BY MOUTH TWICE A DAY Metoprolol ND 91681879411 50 MG Orally Active 1 ta blet Tartrate Twice a day with food Lipitor [facility] 56148740634 80 MG Orally Active 1 table t Once a day Bumetanide [facility] 78815106678 1 MG Oral Active TAKE 1 TABLET BY MOUTH TWICE A DAY Cranberry Extract [facility] 97[address]892 Active no t defined BD Pen Needle [facility] 54355807558 31G X 5 MM Active USE Mini U/F DIRECTED Vitamin D-3 [facility] 28118264815 5000 UNIT Active as Orally directed Aspir-Low [facility] 78299375912 81 MG Orally Active 1 tab let Once a day Calcitriol [facility] 79400547597 0.5 MCG Orally Active 1 capsule Once a day Tradjenta [facility] 15356390099 5 MG Orally Active 1 tabl et Once a day Atorvastatin [facility] 99209982433 80 MG Active TAKE 1 Calcium TABLET BY MOUTH EVERY DAY Results No Known Results Summary Purpose [employer]ClinicalWorks Submission
--- OUTSIDE RECORDS SUMMARY | 2019-06-18 10:51 | XMS REPORT ---
:1940 Author Organization [facility] t Address [address] [place] [address] Care Team Providers Name Role Phone AUBREECHARITY EVELIN Unavailable Unavailable GRETA GAMEZ Unavailable Unavailable ALEKSANDER COOK Unavailable Unavailable CHARU AUGUSTINE Unavailable Unavailable Дмитрий CORTES Unavailable Unavailable Olman STUART Unavailable Unavailable Payers Payer Name Policy Type Policy Number Effective Date Expiration D ate Problems Condition Condition Condition Status Onset Resolution Last Treatin g Comments Name Details Category Date Date Treatment Clinician Date Cervical Cervical Problem Active stenosis of stenosis of spine spine Other Other Problem Active osteoporosi osteoporosi s s History of History of Diagnosis Active coronary coronary artery artery stent stent placement placement Proteinuria Proteinuria Diagnosis Active , , unspecified unspecified 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 [place]is[place] coronary coronary artery artery H/O stroke H/O stroke Diagnosis Active without without residual residual deficits deficits At risk for At risk for Problem Active falling falling Chronic Chronic Problem Active kidney kidney disease, disease, stage 4 stage 4 (severe) (severe) long-term long-term Problem Active current use current 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 of insulin 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 Cardiomyopa Cardiomyopa Problem Active thy in thy in disease disease classified classified elsewhere elsewhere Mixed Mixed Diagnosis Active hyperlipide hyperlipide shital shital Hypertensiv Hypertensiv Problem Active e heart e heart disease disease without without heart heart failure failure Cervical Cervical Problem Active stenosis stenosis (uterine (uterine cervix) cervix) Primary Primary Problem Active hypersomnia hypersomnia Primary Primary Problem Active 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 Primary Primary Problem Active osteoarthri osteoarthri tis of tis of right knee right knee Pain, Pain, Problem Active joint, joint, knee, right knee, right Acute pain Acute pain Problem Active of left of left knee knee Adult BMI Adult BMI Diagnosis Active 36.0-36.9 36.0-36.9 kg/sq m kg/sq m Coronary Coronary Problem Active artery artery disease disease involving involving nisqually nisqually coronary coronary artery of artery of [place]ally heart with heart with unstable unstable angina angina pectoris pectoris History of History of Problem Active cholecystec cholecystec evan evan Atrial Atrial Problem Active flutter, flutter, unspecified unspecified type type Chest pain, Chest pain, Diagnosis Active unspecified unspecified type type Chronic Chronic Diagnosis Active systolic systolic congestive congestive heart heart failure failure NSTEMI NSTEMI Problem Active (non-ST (non-ST elevated elevated myocardial myocardial infarction) infarction) Left sided Left sided Diagnosis Active numbness numbness Allergies, Adverse Reactions, Alerts Allergy Name Allergy Status Severity Reaction(s) Onset Inactive Treat ing Comments Type Date Date Clinician iodine DA Active 07-28 00:00: 00 morphine DA Active SV 07-28 00:00: 00 Benadryl Adverse Active Info Not Reaction Available ALL PAIN Adverse Active Swelling of NARCOTICS Reaction throat, hands CONTRAST DYE Adverse Active Info Not Reaction Available Amiodarone Adverse Active Info Not HCl Reaction Available Levaquin Adverse Active Info Not Reaction Available Medications Ordered Filled Start Stop Current Ordering Indication Dosage Frequency Signature Comments Components Medication Medication Date Date Medication? Clinician (SIG) Name Name Ranolazine Ranolazine 2019-0 Yes John 1 tablet ER ER 4-15 Perry 00:00: 00 Brilinta Brilinta 2019-0 Yes John 1 tablet 4-15 Perry 00:00: 00 Tradjenta Tradjenta 2017-0 Yes John 1 tablet 5-14 Perry 00:00: 00 Clopidogrel Clopidogrel Yes John 1 table t Bisulfate Bisulfate Perry Cranberry Cranberry Yes John not Extract Extract Perry defined Tresiba Tresiba Yes John 14 units FlexTouch FlexTouch Perry Lactobacill Lactobacill Yes John not us us Perry defined Nitrostat Nitrostat Yes John as Perry directed Senna S Senna S Yes John 1 tablet Perry in the evening as needed Cyanocobala Cyanocobala Yes John 1 table t min min Perry Thiamine Thiamine Yes John 1 tablet HCl HCl Perry Lipitor Lipitor Yes John 1 tablet Perry Aspir-Low Aspir-Low Yes John 1 tablet Perry Vitamin D-3 Vitamin D-3 Yes John as Perry directed BD Pen BD Pen Yes John USE Needle Mini Needle Mini Perry DIRECTED U/F U/F Ferrous Ferrous Yes John TAKE 1 Sulfate Sulfate Perry TABLET BY MOUTH TWICE A DAY Bumetanide Bumetanide Yes John TAKE 1 Perry TABLET BY MOUTH TWICE A DAY Metoprolol Metoprolol Yes John 1 tablet Tartrate Tartrate Perry with food Protonix Protonix Yes John 1 packet Perry mixed with apple juice or applesauce Atorvastati Atorvastati Yes John TAKE 1 n Calcium n Calcium Perry TABLET BY MOUTH EVERY DAY Folic Acid Folic Acid Yes John TAKE 1 Perry TABLET BY MOUTH EVERY DAY Calcitriol Calcitriol Yes John TAKE 1 Perry CAPSULE BY MOUTH EVERY DAY Brilinta Brilinta Yes John TAKE 1 Perry TABLET BY MOUTH TWICE A DAY Calcitriol Calcitriol 2019- No John 1 capsule - Perry 00:00 :00 Immunizations Ordered Immunization Name Filled Immunization Name Date Sta tus Comments FluAD FluAD 2018-12-03 Completed 00:00:00 Encounters Start End Encounter Admission Attending Care Care Encounter Date/Time Date/Time Type Type Clinicians Facility Department ID 2019 2019 [facility] [id number] 13:30:00 13:30:[address] [facility] 2019-05-31 2019-05-31 [facility] [id number] 16:05:00 16:05:[address] [facility] 2019-05-30 2019-05-30 [facility] [id number] 11:58:00 11:58:[address] [facility] 2019-05-17 2019-05-17 [facility] [id number] 14:51:00 14:51:[address] [facility] 2019-04-18 2019-04-18 [facility] [id number] 08:45:00 08:45:[address] [facility] 2019-04-11 2019-04-11 [facility] [id number] 08:26:00 08:26:[address] [facility] 2019-03-26 2019-03-26 [facility] [id number] 10:15:00 10:15:00 [facility] 2019-03-21 2019-03-21 [facility] [id number] 09:50:00 09:50:00 [facility] 2019-03-18 2019-03-18 [facility] [id number] 13:29:00 13:29:00 [facility] 2019-02-11 2019-02-11 [facility] [id number] 13:30:00 13:30:[address] [facility] 2019-01-23 2019-01-23 [facility] [id number] 10:15:00 10:15:00 [facility] 2019-01-21 2019-01-21 [facility] [id number] 13:25:00 13:25:[address] [facility] 2018-12-24 2018-12-24 [facility] [id number] 14:34:00 14:34:[address] [facility] 2018-12-21 2018-12-21 [facility] [id number] 14:44:00 14:44:[address] [facility] 2018-12-19 2018-12-19 [facility] [id number] 17:03:00 17:03:00 [facility] 2018-12-03 2018-12-03 [facility] [id number] 14:00:00 14:00:00 [facility] 2018-11-26 2018-11-26 [facility] [id number] 13:30:00 13:30:00 [facility] 2018-10-16 2018-10-16 [facility] [id number] 11:15:00 11:15:00 Specialty[facility]U [facility] 2018-10-08 2018-10-08 [facility] [id number] 15:33:00 15:33:00 [employer] [facility] 2018-10-08 2018-10-08 [facility] [id number] 14:00:00 14:00:00 [place] [employer] [facility] 2018-10-08 2018-10-08 [facility] [id number] 14:00:00 14:00:00 Specialty/U Specialty[facility] 2018-09-17 2018-09-17 [facility] [id number] 10:32:00 10:32:00 [facility] 2018-09-06 2018-09-06 [facility] [id number] 13:30:00 13:30:[address] [facility] 2018-09-04 2018-09-04 [facility] [id number] 14:45:00 14:45:00 [place] [employer] [facility] 2018-08-07 2018-08-07 [facility] [id number] 08:25:00 08:25:00 [facility] 2018-06-26 2018-06-26 [facility] [id number] 10:41:00 10:41:[address] [facility] 2018-06-12 2018-06-12 [facility] [id number] 10:30:00 10:30:00 [employer] [employer] [facility] 2018 2018 [facility] [id number] 11:54:00 11:54:00 [facility] 2018-03-14 2018-03-14 [facility] [id number] 15:00:00 15:00:00 [facility] 2018-02-21 2018-02-21 [facility] [id number] 13:15:00 13:15:00 Specialty/U Specialty/[facility] 2018-02-21 2018-02-21 [facility] [id number] 09:57:00 09:57:00 [place] [employer] [facility] 2018-02-21 2018-02-21 [facility] [id number] 09:30:00 09:30:00 Specialty/U Specialty[facility] 2018-02-21 2018-02-21 [facility] [id number] 08:32:00 08:32:00 [facility] 2017-12-06 2017-12-06 [facility] [id number] 14:30:00 14:30:00 [facility] 2017-11-29 2017-11-29 [facility] [id number] 09:30:00 09:30:00 [facility] 2017-11-01 2017-11-01 [facility] [id number] 15:00:00 15:00:00 [facility] 2017-11-01 2017-11-01 [facility] [id number] 14:19:00 14:19:00 [facility] 2017-11-01 2017-11-01 Outpatient Annalisa Fang [id number] 14:02:00 14:02:00 Alex MARTINEZ 2017-09-06 2017-09-06 [facility] [id number] 10:30:00 10:30:00 [facility] 2017-07-12 2017-07-12 [facility] [id number] 11:48:00 11:48:00 [place] [employer] [facility] 2017-07-03 2017-07-03 [facility] [id number] 10:15:00 10:15:00 [facility] 2017-06-08 2017-06-08 [facility] [id number] 12:16:00 12:16:00 [facility] 2017-05-16 2017-05-16 [facility] [id number] 11:00:00 11:00:00 Specialty/U Special[facility] 2017-05-08 2017-05-08 [facility] [id number] 10:45:00 10:45:00 [facility] Results Test Description Test Time Test Comments Text Results Atomic Results Result Comments PLATELET AGGREGATION: DRUG EFFECT 2019-05-29 16:27:00 Test Item Value Reference Range Comments ARACHADONIC ACID RESULT(BEAKER) (test 13 % 63-89 code = 2138) PLATELET AGG DRUG INTERPRETATION Decreased response to arachidon ic (BEAKER) (test code = 2408) acid suggests aspirin-like effect. PLATELET AGG DRUG INTERPRETATION Decreased aggregation with ADP which (BEAKER) (test code = 273961) indicates platelet dysfunction ranav t may be due to medication effect, uremia, or other platelet function disorders. Clinical correlation is required. [id number] (BEAKER) (test Talia Villarreal MD (zaria ctronic code = 2621) signature) PLATELET COUNT AGG (BEAKER) (test code 184 K/CU MM 150-450 = 2656) PLATELET RICH PLASMA(BEAKER) (test code 243 k/cu mm 200-300 = 2134) Platelet function studies by aggregation methodology on samples with platelet count <75,000/CU MMare unreliable; platelet function assessment should not be based on a single test.Mid Level Developer ID - [id number]-GLUCOSE [id number] 13:37:00 Test Item Value Reference Range Comments POC-GLUCOSE METER (BEAKER) 298 mg/dL 70-110 : Not ified RN/MD: TESTED AT (test code = 1538) [facility] [address] [facility], [address]: Mid Level Developer/ Geophysical Drafter ID = [id number] for WATSON BEAULA POCT-GLUCOSE [id number] 07:54:00 Test Item Value Reference Range Comments POC-GLUCOSE METER (BEAKER) 270 mg/dL 70-110 : ANOOP ELVA AT [facility] [address] [facility] (test code = 1538) [facility], [address]: Mid Level Developer/Technic alexandro ID = [id number] for WATSON, BEAULA CALCIUM, [id number] 05:34:00 Test Item Value Reference Range Comments CALCIUM IONIZED (BEAKER) (test code = 698) 1.16 mmol/L 1.12- 1.27 PH, BLOOD (BEAKER) (test code = 1810) 7.40 URIC [id number] 05:20:00 Test Item Value Reference Range Comments URIC ACID (BEAKER) (test code = 773) 9.0 mg/dL 2.6-7.2 Mid Level Developer ID - MELI [id number] 05:20:00 Test Item Value Reference Range Comments MAGNESIUM (BEAKER) (test code = 627) 2.1 mg/dL 1.6-2.6 Mid Level Developer ID - MELI [id number] 05:20:00 Test Item Value Reference Range Comments PHOSPHORUS (BEAKER) (test code = 604) 3.7 mg/dL 2.3-4.7 Mid Level Developer ID - MELI MCREATINE KINASE (CK)2019-05-29 05:20:00 Test Item Value Reference Range Comments CREATINE KINASE TOTAL (BEAKER) (test code = 380) 94 U/L 29-200 Mid Level Developer ID - MELI MB-TYPE NATRIURETIC FACTOR (BNP)2019-05-29 05:20:00 Test Item Value Reference Range Comments B-TYPE NATRIURETIC PEPTIDE (BEAKER) (test code = 1228 pg/mL 0-100 700) Mid Level Developer ID - MELI MBASIC METABOLIC [id number] 05:20:00 Test Item Value Reference Range Comments SODIUM (BEAKER) (test 135 meq/L 136-145 code = 381) POTASSIUM (BEAKER) (test 3.8 meq/L 3.5-5.1 code = 379) CHLORIDE (BEAKER) (test 98 meq/L 98-107 code = 382) CO2 (BEAKER) (test code = 27 meq/L 22-29 355) BLOOD UREA NITROGEN 73 mg/dL 7-21 (BEAKER) (test code = 354) CREATININE (BEAKER) (test 3.31 mg/dL 0.57-1.25 code = 358) GLUCOSE RANDOM (BEAKER) 269 mg/dL 70-105 (test code = 652) CALCIUM (BEAKER) (test 9.1 mg/dL 8.4-10.2 code = 697) EGFR (BEAKER) (test code 13 mL/min/1.73 sq m EST IMATED GFR IS NOT = 1092) ACCURATE CREA TININE CLEARANCE IN PRE DICTING GLOMERULAR FILTR ATION RATE. ESTIMATED GFR IS NOT APPLICABLE F OR DIALYSIS PATIENT S. Mid Level Developer ID - MELI MCBC W/PLT COUNT & AUTO [id number] 04:59:00 Test Item Value Reference Range Comments WHITE BLOOD CELL COUNT (BEAKER) (test code = 6.4 K/ L 3.5 -10.5 775) RED BLOOD CELL COUNT (BEAKER) (test code = 761) 3.26 M/ L 3.93-5.22 HEMOGLOBIN (BEAKER) (test code = 410) 10.1 GM/DL 11.2-15.7 HEMATOCRIT (BEAKER) (test code = 411) 30.3 % 34.1-44.9 MEAN CORPUSCULAR VOLUME (BEAKER) (test code = 92.9 fL 79 .4-94.8 753) MEAN CORPUSCULAR HEMOGLOBIN (BEAKER) (test code 31.0 pg 25.6-32.2 = 751) MEAN CORPUSCULAR HEMOGLOBIN CONC (BEAKER) (test 33.3 GM/DL 32.2-35.5 code = 752) RED CELL DISTRIBUTION WIDTH (BEAKER) (test code 13.1 % 11.7-14.4 = 412) PLATELET COUNT (BEAKER) (test code = 756) 183 K/CU MM 150-45 0 MEAN PLATELET VOLUME (BEAKER) (test code = 754) 9.9 fL 9.4-12.3 NUCLEATED RED BLOOD CELLS (BEAKER) (test code = 0 /100 WBC 0-0 413) NEUTROPHILS RELATIVE PERCENT (BEAKER) (test code 70 % = 429) LYMPHOCYTES RELATIVE PERCENT (BEAKER) (test code 19 % = 430) MONOCYTES RELATIVE PERCENT (BEAKER) (test code = 9 % 431) EOSINOPHILS RELATIVE PERCENT (BEAKER) (test code 1 % = 432) BASOPHILS RELATIVE PERCENT (BEAKER) (test code = 1 % 437) NEUTROPHILS ABSOLUTE COUNT (BEAKER) (test code = 4.47 K/ L 1.56-6.13 670) LYMPHOCYTES ABSOLUTE COUNT (BEAKER) (test code = 1.20 K/ L 1.18-3.74 414) MONOCYTES ABSOLUTE COUNT (BEAKER) (test code = 0.59 K/ L 0 .24-0.36 415) EOSINOPHILS ABSOLUTE COUNT (BEAKER) (test code = 0.08 K/ L 0.04-0.36 416) BASOPHILS ABSOLUTE COUNT (BEAKER) (test code = 0.04 K/ L 0 .01-0.08 417) IMMATURE GRANULOCYTES-RELATIVE PERCENT (BEAKER) 0 % 0-1 (test code = 2801) CBC (HEMOGRAM ONLY)2019-05-29 04:59:00 Test Item Value Reference Range Comments WHITE BLOOD CELL COUNT (BEAKER) (test code = 6.4 K/ L 3.5 -10.5 775) RED BLOOD CELL COUNT (BEAKER) (test code = 761) 3.26 M/ L 3.93-5.22 HEMOGLOBIN (BEAKER) (test code = 410) 10.1 GM/DL 11.2-15.7 HEMATOCRIT (BEAKER) (test code = 411) 30.3 % 34.1-44.9 MEAN CORPUSCULAR VOLUME (BEAKER) (test code = 92.9 fL 79 .4-94.8 753) MEAN CORPUSCULAR HEMOGLOBIN (BEAKER) (test code 31.0 pg 25.6-32.2 = 751) MEAN CORPUSCULAR HEMOGLOBIN CONC (BEAKER) (test 33.3 GM/DL 32.2-35.5 code = 752) RED CELL DISTRIBUTION WIDTH (BEAKER) (test code 13.1 % 11.7-14.4 = 412) PLATELET COUNT (BEAKER) (test code = 756) 183 K/CU MM 150-45 0 MEAN PLATELET VOLUME (BEAKER) (test code = 754) 9.9 fL 9.4-12.3 NUCLEATED RED BLOOD CELLS (BEAKER) (test code = 0 /100 WBC 0-0 413) U/S, RENAL, [id number] 03:58:00Reason for exam:->AKIShould this be performed at the bedside?->YesFINAL REPORT U/S, RENAL, COMPLETEComparison 08/02/2018, 03/22/2019 Clinical History: OTIS Discussion: Sonographic evaluation of the kidneys is performed. Right kidney: 8.9 x 4.5 x 4.6 cm, with cortical thickness of 1.1 cm. Normal cortical echogenicity. No mass. Interpolar shadowing echogenic foci measuring between 7 mm and 14 mm, similar to prior exam. No hydronephrosis. Leftkidney: 8.7 x 4.7 x 5.3 cm, with cortical thickness of 1.1 cm. Normal cortical echogenicity. Superolateral 1.5 cm hypoechoic cyst. No shadowing calculus. No hydronephrosis. Limited doppler evaluation of bilateral main renal arteries and veins demonstrate patency. Bladder: Unremarkable. Impression: Stable exam without acute finding. Nonobstructing right nephrolithiasis. Left renal 1.5 cm cyst isstable in size. Signed: Ochoa Fry MDReport Verified Date/Time: 05/29/2019 03:58:20 POCT- GLUCOSE [id number] 21:44:00 Test Item Value Reference Range Comments POC-GLUCOSE METER (BEAKER) 230 mg/dL 70-110 : ANOOP ELVA AT [address] (test code = 1538) [facility], [address]: Mid Level Developer/Technic alexandro ID = [id number] for DARIAN SQUIRES [id number] 20:46:00 Test Item Value Reference Range Comments ACTIVATED CLOTTING TIME 136 sec : 74-137 seconds, Baseline: (BEAKER) (test code = 441) TESTE D AT [address], [address]: Mid Level Developer/Technic alexandro ID = [id number] for DARIAN SQUIRES URINALYSIS W/ [id number] 18:58:00 Test Item Value Reference Range Comments COLOR (BEAKER) (test code = 470) Light Yellow CLARITY (BEAKER) (test code = 469) Clear SPECIFIC GRAVITY UA (BEAKER) (test code = 468) 1.012 1 .001-1.035 PH UA (BEAKER) (test code = 467) 6.0 5.0-8.0 PROTEIN UA (BEAKER) (test code = 464) 20 mg/dL Negative GLUCOSE UA (BEAKER) (test code = 365) 150 mg/dL Negative KETONES UA (BEAKER) (test code = 371) Negative Negative BILIRUBIN UA (BEAKER) (test code = 462) Negative Negative BLOOD UA (BEAKER) (test code = 461) Trace Negative NITRITE UA (BEAKER) (test code = 465) Negative Negative LEUKOCYTE ESTERASE UA (BEAKER) (test code = Negative Nega tive 466) UROBILINOGEN UA (BEAKER) (test code = 463) 0.2 mg/dL 0.2-1 .0 RBC UA (BEAKER) (test code = 519) 1 /HPF WBC UA (BEAKER) (test code = 520) < /HPF BACTERIA (BEAKER) (test code = 517) Many SOURCE(BEAKER) (test code = 2795) Mid Level Developer ID - [auto]Mid Level Developer ID - [id number] 18:35:00 Test Item Value Reference Range Comments ACTIVATED CLOTTING TIME 164 sec : 74-137 seconds, Baseline: (BEAKER) (test code = 441) TESTE D AT [address], [address]: Mid Level Developer/Technic alexandro ID = [id number] for SHONDA DESAI BASIC METABOLIC [id number] 16:41:00 Test Item Value Reference Range Comments SODIUM (BEAKER) (test 136 meq/L 136-145 code = 381) POTASSIUM (BEAKER) (test 3.7 meq/L 3.5-5.1 code = 379) CHLORIDE (BEAKER) (test 97 meq/L 98-107 code = 382) CO2 (BEAKER) (test code = 32 meq/L 22-29 355) BLOOD UREA NITROGEN 74 mg/dL 7-21 (BEAKER) (test code = 354) CREATININE (BEAKER) (test 3.34 mg/dL 0.57-1.25 code = 358) GLUCOSE RANDOM (BEAKER) 142 mg/dL 70-105 (test code = 652) CALCIUM (BEAKER) (test 10.0 mg/dL 8.4-10.2 code = 697) EGFR (BEAKER) (test code 13 mL/min/1.73 sq m EST IMATED GFR IS NOT = 1092) ACCURATE CREA TININE CLEARANCE IN PRE DICTING GLOMERULAR FILTR ATION RATE. ESTIMATED GFR IS NOT APPLICABLE F OR DIALYSIS PATIENT S. Mid Level Developer ID - [id number] 16:33:00 Test Item Value Reference Range Comments ACTIVATED CLOTTING TIME 202 sec : 74-137 seconds, Baseline: (BEAKER) (test code = 441) TESTE D AT [address], [facility] 0: Mid Level Developer/Technic alexandro ID = [id number] for SHONDA DESAI CBC (HEMOGRAM ONLY)2019-05-28 16:25:00 Test Item Value Reference Range Comments WHITE BLOOD CELL COUNT (BEAKER) (test code = 8.2 K/ L 3.5 -10.5 775) RED BLOOD CELL COUNT (BEAKER) (test code = 761) 3.73 M/ L 3.93-5.22 HEMOGLOBIN (BEAKER) (test code = 410) 11.5 GM/DL 11.2-15.7 HEMATOCRIT (BEAKER) (test code = 411) 34.2 % 34.1-44.9 MEAN CORPUSCULAR VOLUME (BEAKER) (test code = 91.7 fL 79 .4-94.8 753) MEAN CORPUSCULAR HEMOGLOBIN (BEAKER) (test code 30.8 pg 25.6-32.2 = 751) MEAN CORPUSCULAR HEMOGLOBIN CONC (BEAKER) (test 33.6 GM/DL 32.2-35.5 code = 752) RED CELL DISTRIBUTION WIDTH (BEAKER) (test code 13.1 % 11.7-14.4 = 412) PLATELET COUNT (BEAKER) (test code = 756) 209 K/CU MM 150-45 0 MEAN PLATELET VOLUME (BEAKER) (test code = 754) 9.6 fL 9.4-12.3 NUCLEATED RED BLOOD CELLS (BEAKER) (test code = 0 /100 WBC 0-0 413) [id number] 14:53:00 Test Item Value Reference Range Comments ACTIVATED CLOTTING TIME 246 sec : 74-137 seconds, Baseline: (BEAKER) (test code = 441) TESTE D AT [address], [facility] 0: Mid Level Developer/Technic alexandro ID = [id number] for Jacks on, Riley [id number] 14:07:00 Test Item Value Reference Range Comments ACTIVATED CLOTTING TIME 213 sec : 74-137 seconds, Baseline: (BEAKER) (test code = 441) TESTE D AT [address], [facility] 0: Mid Level Developer/Technic alexandro ID = [id number] for [place] on, Riley [id number] 14:07:00 Test Item Value Reference Range Comments ACTIVATED CLOTTING TIME 109 sec : 74-137 seconds, Baseline: (BEAKER) (test code = 441) TESTE D AT [address], [address]: Mid Level Developer/Technic alexandro ID = [id number] for Riley Baltazar CREATININE, RANDOM [id number] 13:05:00 Test Item Value Reference Range Comments CREATININE URINE (BEAKER) (test code = 375) 65.1 mg/dL Reference Range: No NormalsOperator ID - BSPROTEIN, RANDOM [id number] 13:05:00 Test Item Value Reference Range Comments PROTEIN, URINE (BEAKER) (test code = 1569) 10 mg/dL 0-14 Mid Level Developer ID - BSSODIUM, RANDOM [id number] 13:05:00 Test Item Value Reference Range Comments SODIUM URINE (BEAKER) (test code = 243) 35 meq/L Reference Range: No NormalsOperator ID - BSPOCT-GLUCOSE [id number] 12:14:00 Test Item Value Reference Range Comments POC-GLUCOSE METER (BEAKER) 313 mg/dL 70-110 : ANOOP ELVA AT [address] (test code = 1538) [facility], [address]: Mid Level Developer/Technic alexandro ID = [id number] for Namrata HENDRICKS POCT-GLUCOSE [id number] 09:43:00 Test Item Value Reference Range Comments POC-GLUCOSE METER (BEAKER) 272 mg/dL 70-110 : Not ified RN/MD: TESTED AT (test code = 1538) [address], [address]: Mid Level Developer/ Geophysical Drafter ID = [id number] for LIZ WATSON [id number] 09:00:00 Test Item Value Reference Range Comments PARTIAL THROMBOPLASTIN TIME (BEAKER) (test code 67.2 seconds 22.5-36.0 = 760) BASIC METABOLIC [id number] 07:07:00 Test Item Value Reference Range Comments SODIUM (BEAKER) (test 135 meq/L 136-145 code = 381) POTASSIUM (BEAKER) (test 3.6 meq/L 3.5-5.1 code = 379) CHLORIDE (BEAKER) (test 96 meq/L 98-107 code = 382) CO2 (BEAKER) (test code = 28 meq/L 22-29 355) BLOOD UREA NITROGEN 77 mg/dL 7-21 (BEAKER) (test code = 354) CREATININE (BEAKER) (test 3.56 mg/dL 0.57-1.25 code = 358) GLUCOSE RANDOM (BEAKER) 284 mg/dL 70-105 (test code = 652) CALCIUM (BEAKER) (test 8.8 mg/dL 8.4-10.2 code = 697) EGFR (BEAKER) (test code 12 mL/min/1.73 sq m EST IMATED GFR IS NOT = 1092) ACCURATE CREA TININE CLEARANCE IN PRE DICTING GLOMERULAR FILTR ATION RATE. ESTIMATED GFR IS NOT APPLICABLE F OR DIALYSIS PATIENT S. Mid Level Developer ID - [id number] 06:56:00 Test Item Value Reference Range Comments PARTIAL THROMBOPLASTIN TIME (BEAKER) (test code = > seconds 22.5-36.0 760) CBC (HEMOGRAM ONLY)2019-05-28 06:51:00 Test Item Value Reference Range Comments WHITE BLOOD CELL COUNT (BEAKER) (test code = 6.6 K/ L 3.5 -10.5 775) RED BLOOD CELL COUNT (BEAKER) (test code = 761) 3.55 M/ L 3.93-5.22 HEMOGLOBIN (BEAKER) (test code = 410) 10.9 GM/DL 11.2-15.7 HEMATOCRIT (BEAKER) (test code = 411) 32.9 % 34.1-44.9 MEAN CORPUSCULAR VOLUME (BEAKER) (test code = 92.7 fL 79 .4-94.8 753) MEAN CORPUSCULAR HEMOGLOBIN (BEAKER) (test code 30.7 pg 25.6-32.2 = 751) MEAN CORPUSCULAR HEMOGLOBIN CONC (BEAKER) (test 33.1 GM/DL 32.2-35.5 code = 752) RED CELL DISTRIBUTION WIDTH (BEAKER) (test code 13.1 % 11.7-14.4 = 412) PLATELET COUNT (BEAKER) (test code = 756) 187 K/CU MM 150-45 0 MEAN PLATELET VOLUME (BEAKER) (test code = 754) 10.2 fL 9.4-12.3 NUCLEATED RED BLOOD CELLS (BEAKER) (test code = 0 /100 WBC 0-0 413) CBC W/PLT COUNT & AUTO [id number] 06:51:00 Test Item Value Reference Range Comments WHITE BLOOD CELL COUNT (BEAKER) (test code = 6.6 K/ L 3.5 -10.5 775) RED BLOOD CELL COUNT (BEAKER) (test code = 761) 3.55 M/ L 3.93-5.22 HEMOGLOBIN (BEAKER) (test code = 410) 10.9 GM/DL 11.2-15.7 HEMATOCRIT (BEAKER) (test code = 411) 32.9 % 34.1-44.9 MEAN CORPUSCULAR VOLUME (BEAKER) (test code = 92.7 fL 79 .4-94.8 753) MEAN CORPUSCULAR HEMOGLOBIN (BEAKER) (test code 30.7 pg 25.6-32.2 = 751) MEAN CORPUSCULAR HEMOGLOBIN CONC (BEAKER) (test 33.1 GM/DL 32.2-35.5 code = 752) RED CELL DISTRIBUTION WIDTH (BEAKER) (test code 13.1 % 11.7-14.4 = 412) PLATELET COUNT (BEAKER) (test code = 756) 187 K/CU MM 150-45 0 MEAN PLATELET VOLUME (BEAKER) (test code = 754) 10.2 fL 9.4-12.3 NUCLEATED RED BLOOD CELLS (BEAKER) (test code = 0 /100 WBC 0-0 413) NEUTROPHILS RELATIVE PERCENT (BEAKER) (test code 61 % = 429) LYMPHOCYTES RELATIVE PERCENT (BEAKER) (test code 28 % = 430) MONOCYTES RELATIVE PERCENT (BEAKER) (test code = 8 % 431) EOSINOPHILS RELATIVE PERCENT (BEAKER) (test code 2 % = 432) BASOPHILS RELATIVE PERCENT (BEAKER) (test code = 1 % 437) NEUTROPHILS ABSOLUTE COUNT (BEAKER) (test code = 4.05 K/ L 1.56-6.13 670) LYMPHOCYTES ABSOLUTE COUNT (BEAKER) (test code = 1.87 K/ L 1.18-3.74 414) MONOCYTES ABSOLUTE COUNT (BEAKER) (test code = 0.53 K/ L 0 .24-0.36 415) EOSINOPHILS ABSOLUTE COUNT (BEAKER) (test code = 0.10 K/ L 0.04-0.36 416) BASOPHILS ABSOLUTE COUNT (BEAKER) (test code = 0.04 K/ L 0 .01-0.08 417) IMMATURE GRANULOCYTES-RELATIVE PERCENT (BEAKER) 0 % 0-1 (test code = 2801) TROPONIN [id number] 05:00:00 Test Item Value Reference Range Comments TROPONIN I (BEAKER) (test code = 397) 1.06 ng/mL 0.00-0.03 Troponin I (TnI) levels must [...] failure, acidosis, acute neurological disease, and persistent tachyarrhythmia.Mid Level Developer ID - BSTROPONIN [id number] 00:21:00 Test Item Value Reference Range Comments TROPONIN I (BEAKER) (test code = 397) 0.29 ng/mL 0.00-0.03 Troponin I (TnI) levels must [...] failure, acidosis, acute neurological disease, and persistent tachyarrhythmia.Mid Level Developer ID - BSBASIC METABOLIC PANEL 2019-05-28 00:18:00 Test Item Value Reference Range Comments SODIUM (BEAKER) (test 133 meq/L 136-145 code = 381) POTASSIUM (BEAKER) (test 4.1 meq/L 3.5-5.1 Specime n slightly code = 379) hemolyzed CHLORIDE (BEAKER) (test 93 meq/L 98-107 code = 382) CO2 (BEAKER) (test code = 25 meq/L 22-29 355) BLOOD UREA NITROGEN 83 mg/dL 7-21 (BEAKER) (test code = 354) CREATININE (BEAKER) (test 3.87 mg/dL 0.57-1.25 Specim en slightly code = 358) hemolyzed GLUCOSE RANDOM (BEAKER) 305 mg/dL 70-105 (test code = 652) CALCIUM (BEAKER) (test 9.5 mg/dL 8.4-10.2 code = 697) EGFR (BEAKER) (test code 11 mL/min/1.73 sq m EST IMATED GFR IS NOT = 1092) ACCURATE CREA TININE CLEARANCE IN PRE DICTING GLOMERULAR FILTR ATION RATE. ESTIMATED GFR IS NOT APPLICABLE F OR DIALYSIS PATIENT S. Mid Level Developer ID - BSB-TYPE NATRIURETIC FACTOR (BNP)2019-05-28 00:13:00 Test Item Value Reference Range Comments B-TYPE NATRIURETIC PEPTIDE (BEAKER) (test code = 416 pg/mL 0-100 700) Mid Level Developer ID - [id number] 23:58:00 Test Item Value Reference Range Comments PARTIAL THROMBOPLASTIN TIME (BEAKER) (test code 24.1 seconds 22.5-36.0 = 760) 6 hours after starting heparin infusion and as indicated per sliding scale [id number] 23:58:00 Test Item Value Reference Range Comments PROTIME (BEAKER) (test code = 759) 13.3 seconds 11.9-14.2 INR (BEAKER) (test code = 370) 1.0 <=5.9 PARTIAL THROMBOPLASTIN TIME (BEAKER) (test code 25.2 seconds 22.5-36.0 = 760) Effective 07/18/2018: PT Reference Range ChangeNew: 11.9-14.2 Previous: 11.7- 14.7RECOMMENDED COUMADIN/WARFARIN INR THERAPY RANGESSTANDARD DOSE: 2.0-3.0 Includes: PROPHYLAXIS for venous thrombosis, systemic embolization; TREATMENT for venous thrombosis and/or pulmonary embolus.HIGH RISK: Target INR is2.5-3.5 for patients wiht mechanical heart valves.CBC W/PLT COUNT & AUTO [id number] 23:50:00 Test Item Value Reference Range Comments WHITE BLOOD CELL COUNT (BEAKER) (test code = 7.5 K/ L 3.5 -10.5 775) RED BLOOD CELL COUNT (BEAKER) (test code = 761) 3.99 M/ L 3.93-5.22 HEMOGLOBIN (BEAKER) (test code = 410) 12.2 GM/DL 11.2-15.7 HEMATOCRIT (BEAKER) (test code = 411) 37.0 % 34.1-44.9 MEAN CORPUSCULAR VOLUME (BEAKER) (test code = 92.7 fL 79 .4-94.8 753) MEAN CORPUSCULAR HEMOGLOBIN (BEAKER) (test code 30.6 pg 25.6-32.2 = 751) MEAN CORPUSCULAR HEMOGLOBIN CONC (BEAKER) (test 33.0 GM/DL 32.2-35.5 code = 752) RED CELL DISTRIBUTION WIDTH (BEAKER) (test code 13.0 % 11.7-14.4 = 412) PLATELET COUNT (BEAKER) (test code = 756) 206 K/CU MM 150-45 0 MEAN PLATELET VOLUME (BEAKER) (test code = 754) 9.9 fL 9.4-12.3 NUCLEATED RED BLOOD CELLS (BEAKER) (test code = 0 /100 WBC 0-0 413) NEUTROPHILS RELATIVE PERCENT (BEAKER) (test code 68 % = 429) LYMPHOCYTES RELATIVE PERCENT (BEAKER) (test code 22 % = 430) MONOCYTES RELATIVE PERCENT (BEAKER) (test code = 9 % 431) EOSINOPHILS RELATIVE PERCENT (BEAKER) (test code 1 % = 432) BASOPHILS RELATIVE PERCENT (BEAKER) (test code = 1 % 437) NEUTROPHILS ABSOLUTE COUNT (BEAKER) (test code = 5.11 K/ L 1.56-6.13 670) LYMPHOCYTES ABSOLUTE COUNT (BEAKER) (test code = 1.64 K/ L 1.18-3.74 414) MONOCYTES ABSOLUTE COUNT (BEAKER) (test code = 0.64 K/ L 0 .24-0.36 415) EOSINOPHILS ABSOLUTE COUNT (BEAKER) (test code = 0.08 K/ L 0.04-0.36 416) BASOPHILS ABSOLUTE COUNT (BEAKER) (test code = 0.04 K/ L 0 .01-0.08 417) IMMATURE GRANULOCYTES-RELATIVE PERCENT (BEAKER) 0 % 0-1 (test code = 2801) PLATELET [id number] 23:50:00 Test Item Value Reference Range Comments PLATELET COUNT (BEAKER) (test code = 756) 209 K/CU MM 150-45 0 Mid Level Developer ID - [id number], CHEST, 1 VIEW, NON [id number] 23:36:00Reason for exam:->CHEST PAIN, dyspneaShould this be performed at the bedside?->Yes FINAL REPORT RAD, CHEST, 1 VIEW, NON DEPT INDICATION: CHEST PAIN, dyspnea COMPARISON: March 20, 2019 FINDINGS: Portable frontal view of the chest. IMPRESSION: Support Lines:None Lungs and pleura: Left lung base linear opacities suggestive of scarring are stable. Lungs are otherwise clear. No pneumothorax.Heart and mediastinum: Stable contours. Additional findings: Bilateral humeral deformities are stable. Costochondral calcifications present. Signed: Ochoa Fry MDReport Verified Date/Time: 05/27/2019 23:36:18 POCT-GLUCOSE [id number] 11:53:00 Test Item Value Reference Range Comments POC-GLUCOSE METER (BEAKER) 309 mg/dL 70-110 : ANOOP ELVA AT [address] (test code = 1538) [facility], [address]: Mid Level Developer/Technic alexandro ID = [id number] for WHATLEY-SMI TH, NOVA POCT-GLUCOSE [id number] 08:34:00 Test Item Value Reference Range Comments POC-GLUCOSE METER (BEAKER) 209 mg/dL 70-110 : ANOOP ELVA AT [address] (test code = 1538) [facility], [address]: Mid Level Developer/Technic alexandro ID = [id number] for WHATLEY-SMI TH, NOVA COMPREHENSIVE METABOLIC [id number] 07:27:00 Test Item Value Reference Range Comments TOTAL PROTEIN (BEAKER) 6.3 gm/dL 6.0-8.3 Specimen slightly (test code = 770) hemolyzed ALBUMIN (BEAKER) (test 3.4 g/dL 3.5-5.0 Specimen slightly code = 1145) hemolyzed ALKALINE PHOSPHATASE 52 U/L 40-150 (BEAKER) (test code = 346) BILIRUBIN TOTAL (BEAKER) 0.4 mg/dL 0.2-1.2 Specime n slightly (test code = 377) hemolyzed SODIUM (BEAKER) (test code 140 meq/L 136-145 = 381) POTASSIUM (BEAKER) (test 4.1 meq/L 3.5-5.1 Specime n slightly code = 379) hemolyzed CHLORIDE (BEAKER) (test 102 meq/L 98-107 code = 382) CO2 (BEAKER) (test code = 25 meq/L 22-29 355) BLOOD UREA NITROGEN 49 mg/dL 7-21 (BEAKER) (test code = 354) CREATININE (BEAKER) (test 2.86 mg/dL 0.57-1.25 Specim en slightly code = 358) hemolyzed GLUCOSE RANDOM (BEAKER) 164 mg/dL 70-105 (test code = 652) CALCIUM (BEAKER) (test 9.0 mg/dL 8.4-10.2 code = 697) AST (SGOT) (BEAKER) (test 27 U/L 5-34 Specim en slightly code = 353) hemolyzed ALT (SGPT) (BEAKER) (test 14 U/L 6-55 Specim en slightly code = 347) hemolyzed EGFR (BEAKER) (test code = 16 mL/min/1.73 sq m E STIMATED GFR IS NOT 1092) ACCURATE CREA TININE CLEARANCE IN PRE DICTING GLOMERULAR FILTR ATION RATE. ESTIMATED GFR IS NOT APPLICABLE F OR DIALYSIS PATIENT S. Mid Level Developer ID - PIAYA LCBC W/PLT COUNT & AUTO [id number] 03:51:00 Test Item Value Reference Range Comments WHITE BLOOD CELL COUNT (BEAKER) (test code = 7.3 K/ L 3.5 -10.5 775) RED BLOOD CELL COUNT (BEAKER) (test code = 761) 3.79 M/ L 3.93-5.22 HEMOGLOBIN (BEAKER) (test code = 410) 11.7 GM/DL 11.2-15.7 HEMATOCRIT (BEAKER) (test code = 411) 36.0 % 34.1-44.9 MEAN CORPUSCULAR VOLUME (BEAKER) (test code = 95.0 fL 79 .4-94.8 753) MEAN CORPUSCULAR HEMOGLOBIN (BEAKER) (test code 30.9 pg 25.6-32.2 = 751) MEAN CORPUSCULAR HEMOGLOBIN CONC (BEAKER) (test 32.5 GM/DL 32.2-35.5 code = 752) RED CELL DISTRIBUTION WIDTH (BEAKER) (test code 13.0 % 11.7-14.4 = 412) PLATELET COUNT (BEAKER) (test code = 756) 202 K/CU MM 150-45 0 MEAN PLATELET VOLUME (BEAKER) (test code = 754) 10.3 fL 9.4-12.3 NUCLEATED RED BLOOD CELLS (BEAKER) (test code = 0 /100 WBC 0-0 413) NEUTROPHILS RELATIVE PERCENT (BEAKER) (test code 65 % = 429) LYMPHOCYTES RELATIVE PERCENT (BEAKER) (test code 23 % = 430) MONOCYTES RELATIVE PERCENT (BEAKER) (test code = 9 % 431) EOSINOPHILS RELATIVE PERCENT (BEAKER) (test code 2 % = 432) BASOPHILS RELATIVE PERCENT (BEAKER) (test code = 1 % 437) NEUTROPHILS ABSOLUTE COUNT (BEAKER) (test code = 4.71 K/ L 1.56-6.13 670) LYMPHOCYTES ABSOLUTE COUNT (BEAKER) (test code = 1.68 K/ L 1.18-3.74 414) MONOCYTES ABSOLUTE COUNT (BEAKER) (test code = 0.67 K/ L 0 .24-0.36 415) EOSINOPHILS ABSOLUTE COUNT (BEAKER) (test code = 0.12 K/ L 0.04-0.36 416) BASOPHILS ABSOLUTE COUNT (BEAKER) (test code = 0.05 K/ L 0 .01-0.08 417) IMMATURE GRANULOCYTES-RELATIVE PERCENT (BEAKER) 0 % 0-1 (test code = 2801) POCT-GLUCOSE [id number] 22:09:00 Test Item Value Reference Range Comments POC-GLUCOSE METER (BEAKER) 172 mg/dL 70-110 : ANOOP ELVA AT [address] (test code = 1538) [facility], [address]: Mid Level Developer/Technic alexandro ID = [id number] for HAIR MULLER POCT-GLUCOSE [id number] 17:30:00 Test Item Value Reference Range Comments POC-GLUCOSE METER (BEAKER) 284 mg/dL 70-110 : ANOOP [facility] AT [facility] [address] (test code = 1538) [facility], [address]: Mid Level Developer/Technic alexandro ID = [id number] for CHACORTAANGEL BETANCOURT NOVA BASIC METABOLIC [id number] 16:26:00 Test Item Value Reference Range Comments SODIUM (BEAKER) (test 140 meq/L 136-145 code = 381) POTASSIUM (BEAKER) (test 4.4 meq/L 3.5-5.1 Specime n slightly code = 379) hemolyzed CHLORIDE (BEAKER) (test 104 meq/L 98-107 code = 382) CO2 (BEAKER) (test code = 27 meq/L 22-29 355) BLOOD UREA NITROGEN 47 mg/dL 7-21 (BEAKER) (test code = 354) CREATININE (BEAKER) (test 2.78 mg/dL 0.57-1.25 Specim en slightly code = 358) hemolyzed GLUCOSE RANDOM (BEAKER) 237 mg/dL 70-105 (test code = 652) CALCIUM (BEAKER) (test 9.1 mg/dL 8.4-10.2 code = 697) EGFR (BEAKER) (test code 16 mL/min/1.73 sq m EST IMATED GFR IS NOT = 1092) ACCURATE CREA TININE CLEARANCE IN PRE DICTING GLOMERULAR FILTR ATION RATE. ESTIMATED GFR IS NOT APPLICABLE F OR DIALYSIS PATIENT S. Mid Level Developer ID - AAHAMFIDELIACT-GLUCOSE [id number] 16:16:00 Test Item Value Reference Range Comments POC-GLUCOSE METER (BEAKER) 233 mg/dL 70-110 : ANOOP [facility] AT [facility] [address] (test code = 1538) [place], [address]: Mid Level Developer/Technic alexandro ID = [id number] for NOVA CORCORAN CBC (HEMOGRAM ONLY)2019-03-22 16:08:00 Test Item Value Reference Range Comments WHITE BLOOD CELL COUNT (BEAKER) (test code = 7.0 K/ L 3.5 -10.5 775) RED BLOOD CELL COUNT (BEAKER) (test code = 761) 3.90 M/ L 3.93-5.22 HEMOGLOBIN (BEAKER) (test code = 410) 12.1 GM/DL 11.2-15.7 HEMATOCRIT (BEAKER) (test code = 411) 36.9 % 34.1-44.9 MEAN CORPUSCULAR VOLUME (BEAKER) (test code = 94.6 fL 79 .4-94.8 753) MEAN CORPUSCULAR HEMOGLOBIN (BEAKER) (test code 31.0 pg 25.6-32.2 = 751) MEAN CORPUSCULAR HEMOGLOBIN CONC (BEAKER) (test 32.8 GM/DL 32.2-35.5 code = 752) RED CELL DISTRIBUTION WIDTH (BEAKER) (test code 13.1 % 11.7-14.4 = 412) PLATELET COUNT (BEAKER) (test code = 756) 198 K/CU MM 150-45 0 MEAN PLATELET VOLUME (BEAKER) (test code = 754) 10.3 fL 9.4-12.3 NUCLEATED RED BLOOD CELLS (BEAKER) (test code = 0 /100 WBC 0-0 413) [id number] 11:06:00 Test Item Value Reference Range Comments ACTIVATED CLOTTING TIME 263 sec Referenc e Range: 74-137 (BEAKER) (test code = 441) secchristian chase, Baseline/TESTED AT [address] [address] [id number] 10:50:00 Test Item Value Reference Range Comments ACTIVATED CLOTTING TIME 263 sec Referenc e Range: 74-137 (BEAKER) (test code = 441) secchristian ds, Baseline/TESTED AT [address] [address] POCT-GLUCOSE [id number] 07:45:00 Test Item Value Reference Range Comments POC-GLUCOSE METER (BEAKER) 188 mg/dL 70-110 : ANOOP ELVA AT [address] (test code = 1538) [facility], [address]: Mid Level Developer/Technic alexandro ID = [id number] for Laura MOMIN BASIC METABOLIC [id number] 02:49:00 Test Item Value Reference Range Comments SODIUM (BEAKER) (test 139 meq/L 136-145 code = 381) POTASSIUM (BEAKER) (test 3.9 meq/L 3.5-5.1 code = 379) CHLORIDE (BEAKER) (test 99 meq/L 98-107 code = 382) CO2 (BEAKER) (test code = 30 meq/L 22-29 355) BLOOD UREA NITROGEN 56 mg/dL 7-21 (BEAKER) (test code = 354) CREATININE (BEAKER) (test 2.94 mg/dL 0.57-1.25 code = 358) GLUCOSE RANDOM (BEAKER) 162 mg/dL 70-105 (test code = 652) CALCIUM (BEAKER) (test 9.3 mg/dL 8.4-10.2 code = 697) EGFR (BEAKER) (test code 15 mL/min/1.73 sq m EST IMATED GFR IS NOT = 1092) ACCURATE CREA TININE CLEARANCE IN PRE DICTING GLOMERULAR FILTR ATION RATE. ESTIMATED GFR IS NOT APPLICABLE F OR DIALYSIS PATIENT S. Mid Level Developer ID - MARILU LB-TYPE NATRIURETIC FACTOR (BNP)2019-03-22 02:44:00 Test Item Value Reference Range Comments B-TYPE NATRIURETIC PEPTIDE (BEAKER) (test code = 815 pg/mL 0-100 700) Mid Level Developer ID - MARILU [id number] 02:42:00 Test Item Value Reference Range Comments PHOSPHORUS (BEAKER) (test code = 604) 4.4 mg/dL 2.3-4.7 Mid Level Developer ID - MARILU [id number] 02:42:00 Test Item Value Reference Range Comments MAGNESIUM (BEAKER) (test code = 627) 2.1 mg/dL 1.6-2.6 Mid Level Developer ID - MARILU LLIPID [id number] 02:42:00 Test Item Value Reference Range Comments TRIGLYCERIDES (BEAKER) (test code = 540) 102 mg/dL CHOLESTEROL (BEAKER) (test code = 631) 161 mg/dL HDL CHOLESTEROL (BEAKER) (test code = 976) 40 mg/dL LDL CHOLESTEROL CALCULATED (BEAKER) (test code = 101 mg/dL 633) Triglyceride Reference Range: Low Risk <150 Borderline 150-199 High Risk 200-499 Very High Risk >=500Cholesterol Reference Range: Low Risk <200 Borderline 200-239 High Risk >240HDL Cholesterol Reference Range: Low Risk >=60 High Risk <40LDL Cholesterol Reference Range: Optimal <100 Near Optimal 100-129 Borderline 130-159 High 160-189 Very High >=190 Mid Level Developer ID - [id number] 02:36:00 Test Item Value Reference Range Comments PARTIAL THROMBOPLASTIN TIME (BEAKER) (test code 85.7 seconds 22.5-36.0 = 760) CALCIUM, [id number] 02:33:00 Test Item Value Reference Range Comments CALCIUM IONIZED (BEAKER) (test code = 698) 1.10 mmol/L 1.12- 1.27 PH, BLOOD (BEAKER) (test code = 1810) 7.40 CBC W/PLT COUNT & AUTO [id number] 02:23:00 Test Item Value Reference Range Comments WHITE BLOOD CELL COUNT (BEAKER) (test code = 5.6 K/ L 3.5 -10.5 775) RED BLOOD CELL COUNT (BEAKER) (test code = 761) 3.81 M/ L 3.93-5.22 HEMOGLOBIN (BEAKER) (test code = 410) 11.7 GM/DL 11.2-15.7 HEMATOCRIT (BEAKER) (test code = 411) 35.5 % 34.1-44.9 MEAN CORPUSCULAR VOLUME (BEAKER) (test code = 93.2 fL 79 .4-94.8 753) MEAN CORPUSCULAR HEMOGLOBIN (BEAKER) (test code 30.7 pg 25.6-32.2 = 751) MEAN CORPUSCULAR HEMOGLOBIN CONC (BEAKER) (test 33.0 GM/DL 32.2-35.5 code = 752) RED CELL DISTRIBUTION WIDTH (BEAKER) (test code 13.0 % 11.7-14.4 = 412) PLATELET COUNT (BEAKER) (test code = 756) 172 K/CU MM 150-45 0 MEAN PLATELET VOLUME (BEAKER) (test code = 754) 10.2 fL 9.4-12.3 NUCLEATED RED BLOOD CELLS (BEAKER) (test code = 0 /100 WBC 0-0 413) NEUTROPHILS RELATIVE PERCENT (BEAKER) (test code 52 % = 429) LYMPHOCYTES RELATIVE PERCENT (BEAKER) (test code 33 % = 430) MONOCYTES RELATIVE PERCENT (BEAKER) (test code = 11 % 431) EOSINOPHILS RELATIVE PERCENT (BEAKER) (test code 4 % = 432) BASOPHILS RELATIVE PERCENT (BEAKER) (test code = 1 % 437) NEUTROPHILS ABSOLUTE COUNT (BEAKER) (test code = 2.90 K/ L 1.56-6.13 670) LYMPHOCYTES ABSOLUTE COUNT (BEAKER) (test code = 1.84 K/ L 1.18-3.74 414) MONOCYTES ABSOLUTE COUNT (BEAKER) (test code = 0.64 K/ L 0 .24-0.36 415) EOSINOPHILS ABSOLUTE COUNT (BEAKER) (test code = 0.20 K/ L 0.04-0.36 416) BASOPHILS ABSOLUTE COUNT (BEAKER) (test code = 0.04 K/ L 0 .01-0.08 417) IMMATURE GRANULOCYTES-RELATIVE PERCENT (BEAKER) 0 % 0-1 (test code = 2801) U/S, ABDOMINAL, [id number] 01:50:00Reason for exam:->abd painFINAL REPORT INDICATION: abd pain COMPARISON: Renal ultrasound dated 12/21/2018. TECHNIQUE: Real-time transabdominal lares scale and color Doppler ultrasound of the abdomen. FINDINGS:Liver: Size: 11.3cm. Echogenicity: Normal. Masses/lesions: None. Surface Nodularity: None. Intrahepatic bile ducts: Normal. Common bile duct: 0.6 cm. MPV: 0.9cm. Gallbladder: Surgically absent. Pancreas: Head and uncinate process: Unremarkable. Body and tail:Not well-seen. Spleen: Size: 8.3cm. Echogenicity: Unremarkable. Right kidney: Size: 8.8x 4.2 x 4.4 cm. Parenchyma: Normal echogenicity. No cysts. Multiple echogenic foci in the interpole measuring up to 0.4 cm may represent nephrolithiasis. Hydronephrosis: None. Left kidney: Size: 8.5 x 4.1 x 4.1 cm. Parenchyma: Normal echogenicity. Hypoechoic 1.2 cm upper pole lesion may represent a simple cyst however incompletely characterized on this examination. No stones. Hydronephrosis: None. Ascites: None. Regional Vasculature: The visible abdominal aorta, IVC and hepatic veins are patent. The aorta measures 1.6 cm proximally, 1.6 cm in the midportion 1.1 cm distally. Additional findings: None. IMPRESSION: No acute sonographic abnormality in the abdomen. Postsurgical foreman ges of a cholecystectomy. Right nonobstructing nephrolithiasis. Incompletely characterized left upper pole 1.2 cm hypoechoic lesion. Recommend further evaluation with renal protocol cross-sectional imaging on a nonemergent basis. Signed: Socorro Méndezeport Verified Date/Time: 03/22/2019 01:50:03 -GLUCOSE [id number] 21:37:00 Test Item Value Reference Range Comments POC-GLUCOSE METER (BEAKER) 257 mg/dL 70-110 : ANOOP [facility] AT [facility] [address] (test code = 1538) [facility], [address]: Mid Level Developer/Technic alexandro ID = [id number] for ELIECER LOMELI VIA [id number] 19:18:00 Test Item Value Reference Range Comments PARTIAL THROMBOPLASTIN TIME (BEAKER) (test code 53.5 seconds 22.5-36.0 = 760) POCT-GLUCOSE [id number] 17:38:00 Test Item Value Reference Range Comments POC-GLUCOSE METER (BEAKER) 246 mg/dL 70-110 : ANOOP [facility] AT [facility] [address] (test code = 1538) [facility], [address]: Mid Level Developer/Technic alexandro ID = [id number] for SERAFIN LAGOS CT, BRAIN, WITHOUT [id number] 17:36:00Reason for exam:->Left sided weakness, more so LUE than LLE - last felt normal last nightWhat is the patient's sedation requirement?->No SedationFINAL REPORT CT, BRAIN, WITHOUT CONTRAST INDICATION: Left sided weakness, more so LUE than LLE - last felt normal last nightLeft sided weakness, more so LUE than LLE - last felt normal last night TECHNIQUE: Noncontrast axial imaging was obtained from the vertex to the skull base. Axial images were reconstructed using a bone algorithm. DOSE REDUCTION: Dose modulation, iterative r econstruction, and/or weight-based adjustment of the mA/kV was utilized to reduce the radiation doseto as low as reasonably achievable. COMPARISON: None. FINDINGS: Intracranial: Streak artifact related to cranial-cervical fusion hardware limits evaluation of the posterior fossa. No intracranial hemorrhage or abnormal extra-axial collection. No evidence of acute territorial infarct. Age-indeterminatebut chronic appearing lacunar infarct in the left lentiform nucleus. No mass effect. No hydrocephalus. Coarse extra-axial left frontal calcification. Osseous structures: No fracture. Postsurgical changes of suboccipital decompression and craniocervical fusion. Paranasal sinuses and mastoid air cells: No evidence of sinusitis. Mastoids are clear. Orbital contents: Globes are intact. IMPRESSION: Streakartifact related to craniocervical fusion limits evaluation of the posterior fossa. Otherwise, no CT evidence of acute intracranial hemorrhage or territorial infarct. If there is persistent clinical concern for intracranial pathology, MR examination is recommended for further characterization. Signed: Kavitha Box Verified Date/Time: 03/21/2019 17:36:00 TROPONIN [id number] 15:50:00 Test Item Value Reference Range Comments TROPONIN I (BEAKER) (test code = 397) 0.57 ng/mL 0.00-0.03 Troponin I (TnI) levels [...] failure, acidosis, acute neurological disease, and persistent tachyarrhythmia.Mid Level Developer ID - [id number], SHOULDER, COMPLETE (MIN 2 VIEWS), [id number] 14:38:00Reason for exam:->shoulder pain with ROMFINAL REPORT RAD, SHOULDER, COMPLETE (MIN 2 VIEWS), LEFT COMPARISON: None INDICATION: shoulder pain with ROM FINDINGS: AP views in internal and external rotation and an axillary "Y" view of the left shoulder. Osseous structures: No fracture.Joint spaces: Intact without malalignment. Moderate degenerative changes.Soft tissues: Unremarkable IMPRESSION: No acute abnormality of the left shoulder. Signed: JR Hernadnez Robert MDReport Verified Date/Time: 03/21/2019 14:38:21 Reading Location: [facility] Reading Room POCT-GLUCOSE [id number] 13:19:00 Test Item Value Reference Range Comments POC-GLUCOSE METER (BEAKER) 155 mg/dL 70-110 : ANOOP ELVA AT [facility] [address] (test code = 1538) [facility], [address]: Mid Level Developer/Technic alexandro ID = [id number] for PRIYANKA ELLIS I [id number] 11:14:00 Test Item Value Reference Range Comments PARTIAL THROMBOPLASTIN TIME (BEAKER) (test 108.5 seconds 22.5- 36.0 code = 760) POCT-GLUCOSE [id number] 07:51:00 Test Item Value Reference Range Comments POC-GLUCOSE METER (BEAKER) 198 mg/dL 70-110 : ANOOP ELVA AT [facility] [address] (test code = 1538) [place], [address]: Mid Level Developer/Technic alexandro ID = [id number] for SERAFIN LAGOS [id number] 03:52:00 Test Item Value Reference Range Comments PARTIAL THROMBOPLASTIN TIME 106.2 seconds 22.5-36.0 B.no .[id number] ok to (BEAKER) (test code = 760) relea sed result. BASIC METABOLIC [id number] 02:58:00 Test Item Value Reference Range Comments SODIUM (BEAKER) (test 139 meq/L 136-145 code = 381) POTASSIUM (BEAKER) (test 3.9 meq/L 3.5-5.1 code = 379) CHLORIDE (BEAKER) (test 100 meq/L 98-107 code = 382) CO2 (BEAKER) (test code = 33 meq/L 22-29 355) BLOOD UREA NITROGEN 60 mg/dL 7-21 (BEAKER) (test code = 354) CREATININE (BEAKER) (test 3.09 mg/dL 0.57-1.25 code = 358) GLUCOSE RANDOM (BEAKER) 278 mg/dL 70-105 (test code = 652) CALCIUM (BEAKER) (test 9.1 mg/dL 8.4-10.2 code = 697) EGFR (BEAKER) (test code 15 mL/min/1.73 sq m EST IMATED GFR IS NOT = 1092) ACCURATE CREA TININE CLEARANCE IN PRE DICTING GLOMERULAR FILTR ATION RATE. ESTIMATED GFR IS NOT APPLICABLE F OR DIALYSIS PATIENT S. Mid Level Developer ID - MELI MCBC (HEMOGRAM ONLY)2019-03-21 02:32:00 Test Item Value Reference Range Comments WHITE BLOOD CELL COUNT (BEAKER) (test code = 4.8 K/ L 3.5 -10.5 775) RED BLOOD CELL COUNT (BEAKER) (test code = 761) 3.57 M/ L 3.93-5.22 HEMOGLOBIN (BEAKER) (test code = 410) 11.1 GM/DL 11.2-15.7 HEMATOCRIT (BEAKER) (test code = 411) 33.4 % 34.1-44.9 MEAN CORPUSCULAR VOLUME (BEAKER) (test code = 93.6 fL 79 .4-94.8 753) MEAN CORPUSCULAR HEMOGLOBIN (BEAKER) (test code 31.1 pg 25.6-32.2 = 751) MEAN CORPUSCULAR HEMOGLOBIN CONC (BEAKER) (test 33.2 GM/DL 32.2-35.5 code = 752) RED CELL DISTRIBUTION WIDTH (BEAKER) (test code 12.9 % 11.7-14.4 = 412) PLATELET COUNT (BEAKER) (test code = 756) 170 K/CU MM 150-45 0 MEAN PLATELET VOLUME (BEAKER) (test code = 754) 9.9 fL 9.4-12.3 NUCLEATED RED BLOOD CELLS (BEAKER) (test code = 0 /100 WBC 0-0 413) POCT-GLUCOSE [id number] 21:58:00 Test Item Value Reference Range Comments POC-GLUCOSE METER (BEAKER) 281 mg/dL 70-110 : [facility] [address] (test code = 1538) [facility], [address]: Mid Level Developer/Technic alexandro ID = [id number] for HENRIK FONG [id number] 19:51:00 Test Item Value Reference Range Comments PARTIAL THROMBOPLASTIN TIME (BEAKER) (test code 88.1 seconds 22.5-36.0 = 760) CREATININE, RANDOM [id number] 18:56:00 Test Item Value Reference Range Comments CREATININE URINE (BEAKER) (test code = 375) 56.6 mg/dL Reference Range: No NormalsOperator ID - BSPROTEIN, RANDOM [id number] 18:56:00 Test Item Value Reference Range Comments PROTEIN, URINE (BEAKER) (test code = 1569) 11 mg/dL 0-14 Mid Level Developer ID - BSURINALYSIS W/ [id number] 18:48:00 Test Item Value Reference Range Comments COLOR (BEAKER) (test code = 470) Light Yellow CLARITY (BEAKER) (test code = 469) Clear SPECIFIC GRAVITY UA (BEAKER) (test code = 468) 1.011 1 .001-1.035 PH UA (BEAKER) (test code = 467) 6.0 5.0-8.0 PROTEIN UA (BEAKER) (test code = 464) Negative Negative GLUCOSE UA (BEAKER) (test code = 365) 30 mg/dL Negative KETONES UA (BEAKER) (test code = 371) Negative Negative BILIRUBIN UA (BEAKER) (test code = 462) Negative Negative BLOOD UA (BEAKER) (test code = 461) Negative Negative NITRITE UA (BEAKER) (test code = 465) Negative Negative LEUKOCYTE ESTERASE UA (BEAKER) (test code = Small Nega tive 466) UROBILINOGEN UA (BEAKER) (test code = 463) 0.2 mg/dL 0.2-1 .0 RBC UA (BEAKER) (test code = 519) < /HPF WBC UA (BEAKER) (test code = 520) 1 /HPF MUCUS (BEAKER) (test code = 1574) Rare SQUAMOUS EPITHELIAL (BEAKER) (test code = 516) 1 /HPF SOURCE(BEAKER) (test code = 2795) Mid Level Developer ID - [auto]Mid Level Developer ID - hankPOCT-GLUCOSE [id number] 18:32:00 Test Item Value Reference Range Comments POC-GLUCOSE METER (BEAKER) 190 mg/dL 70-110 : [facility] [address] (test code = 1538) [facility], [address]: Mid Level Developer/Technic alexandro ID = [id number] for LAGOSSERAFIN JACKSON RAD, CHEST, 1 VIEW, NON [id number] 15:28:00Reason for exam:->Fluid statusShould this be performed [...] heads/necks. Signed: Noemy Storm MDReport Verified Date/Time: 03/20/2019 15:28:46 Reading Location: [facility] Reading Room Electronically signed by: NOEMY STORM M.D. on03/20/2019 03:28 PMTROPONIN [id number] 13:36:00 Test Item Value Reference Range Comments TROPONIN I (BEAKER) (test code = 397) 0.78 ng/mL 0.00-0.03 Troponin I (TnI) levels [...] failure, acidosis, acute neurological disease, and persistent tachyarrhythmia.Mid Level Developer ID - TRISTON [id number] 12:50:00 Test Item Value Reference Range Comments PARTIAL THROMBOPLASTIN TIME (BEAKER) (test code 65.6 seconds 22.5-36.0 = 760) POCT-GLUCOSE [id number] 11:57:00 Test Item Value Reference Range Comments POC-GLUCOSE METER (BEAKER) 154 mg/dL 70-110 : [facility] AT [address] (test code = 1538) [facility], [address]: Mid Level Developer/Technic alexandro ID = [id number] for SERAFIN LAGOS HEMOGLOBIN [id number] 09:21:00 Test Item Value Reference Range Comments HEMOGLOBIN A1C (BEAKER) (test code = 368) 8.5 % 4.3-6. 1 POCT-GLUCOSE [id number] 07:53:00 Test Item Value Reference Range Comments POC-GLUCOSE METER (BEAKER) 99 mg/dL 70-110 : [facility] [address] (test code = 1538) [facility], [address]: Mid Level Developer/Technic alexandro ID = [id number] for ROSARIO RAMÍREZABEL TROPONIN [id number] 06:40:00 Test Item Value Reference Range Comments TROPONIN I (BEAKER) (test code = 397) 0.79 ng/mL 0.00-0.03 Troponin I (TnI) levels [...] failure, acidosis, acute neurological disease, and persistent tachyarrhythmia.Mid Level Developer ID - CLARIBELROPONIN [id number] 01:53:00 Test Item Value Reference Range Comments TROPONIN I (BEAKER) (test code = 397) 0.75 ng/mL 0.00-0.03 Troponin I (TnI) levels [...] failure, acidosis, acute neurological disease, and persistent tachyarrhythmia.Mid Level Developer ID - CHRISTIANONBASIC METABOLIC PANEL 2019-03-20 01:52:00 Test Item Value Reference Range Comments SODIUM (BEAKER) (test 139 meq/L 136-145 code = 381) POTASSIUM (BEAKER) (test 3.5 meq/L 3.5-5.1 code = 379) CHLORIDE (BEAKER) (test 100 meq/L 98-107 code = 382) CO2 (BEAKER) (test code = 28 meq/L 22-29 355) BLOOD UREA NITROGEN 69 mg/dL 7-21 (BEAKER) (test code = 354) CREATININE (BEAKER) (test 2.98 mg/dL 0.57-1.25 code = 358) GLUCOSE RANDOM (BEAKER) 142 mg/dL 70-105 (test code = 652) CALCIUM (BEAKER) (test 9.5 mg/dL 8.4-10.2 code = 697) EGFR (BEAKER) (test code 15 mL/min/1.73 sq m EST IMATED GFR IS NOT = 1092) ACCURATE CREA TININE CLEARANCE IN PRE DICTING GLOMERULAR FILTR ATION RATE. ESTIMATED GFR IS NOT APPLICABLE F OR DIALYSIS PATIENT S. Mid Level Developer ID - [id number] 01:25:00 Test Item Value Reference Range Comments MAGNESIUM (BEAKER) (test code = 627) 2.2 mg/dL 1.6-2.6 Mid Level Developer ID - [id number] 01:23:00 Test Item Value Reference Range Comments PARTIAL THROMBOPLASTIN TIME 109.9 seconds 22.5-36.0 B.no .[id number] ok to (BEAKER) (test code = 760) relea sed result. Prior to initiating heparinCBC W/PLT COUNT & AUTO [id number] 01:02:00 Test Item Value Reference Range Comments WHITE BLOOD CELL COUNT (BEAKER) (test code = 5.9 K/ L 3.5 -10.5 775) RED BLOOD CELL COUNT (BEAKER) (test code = 761) 3.93 M/ L 3.93-5.22 HEMOGLOBIN (BEAKER) (test code = 410) 12.0 GM/DL 11.2-15.7 HEMATOCRIT (BEAKER) (test code = 411) 36.5 % 34.1-44.9 MEAN CORPUSCULAR VOLUME (BEAKER) (test code = 92.9 fL 79 .4-94.8 753) MEAN CORPUSCULAR HEMOGLOBIN (BEAKER) (test code 30.5 pg 25.6-32.2 = 751) MEAN CORPUSCULAR HEMOGLOBIN CONC (BEAKER) (test 32.9 GM/DL 32.2-35.5 code = 752) RED CELL DISTRIBUTION WIDTH (BEAKER) (test code 12.9 % 11.7-14.4 = 412) PLATELET COUNT (BEAKER) (test code = 756) 184 K/CU MM 150-45 0 MEAN PLATELET VOLUME (BEAKER) (test code = 754) 10.2 fL 9.4-12.3 NUCLEATED RED BLOOD CELLS (BEAKER) (test code = 0 /100 WBC 0-0 413) NEUTROPHILS RELATIVE PERCENT (BEAKER) (test code 56 % = 429) LYMPHOCYTES RELATIVE PERCENT (BEAKER) (test code 31 % = 430) MONOCYTES RELATIVE PERCENT (BEAKER) (test code = 10 % 431) EOSINOPHILS RELATIVE PERCENT (BEAKER) (test code 2 % = 432) BASOPHILS RELATIVE PERCENT (BEAKER) (test code = 1 % 437) NEUTROPHILS ABSOLUTE COUNT (BEAKER) (test code = 3.31 K/ L 1.56-6.13 670) LYMPHOCYTES ABSOLUTE COUNT (BEAKER) (test code = 1.83 K/ L 1.18-3.74 414) MONOCYTES ABSOLUTE COUNT (BEAKER) (test code = 0.61 K/ L 0 .24-0.36 415) EOSINOPHILS ABSOLUTE COUNT (BEAKER) (test code = 0.14 K/ L 0.04-0.36 416) BASOPHILS ABSOLUTE COUNT (BEAKER) (test code = 0.03 K/ L 0 .01-0.08 417) IMMATURE GRANULOCYTES-RELATIVE PERCENT (BEAKER) 0 % 0-1 (test code = 2801) POCT-GLUCOSE [id number] 09:17:00 Test Item Value Reference Range Comments POC-GLUCOSE METER (BEAKER) 161 mg/dL 70-110 : [facility] AT [facility] [address] (test code = 1538) [facility], [address]: Mid Level Developer/Technic alexandro ID = [id number] for LISHA SABA BASIC METABOLIC [id number] 07:10:00 Test Item Value Reference Range Comments SODIUM (BEAKER) (test 141 meq/L 136-145 code = 381) POTASSIUM (BEAKER) (test 3.5 meq/L 3.5-5.1 code = 379) CHLORIDE (BEAKER) (test 104 meq/L 98-107 code = 382) CO2 (BEAKER) (test code = 30 meq/L 22-29 355) BLOOD UREA NITROGEN 76 mg/dL 7-21 (BEAKER) (test code = 354) CREATININE (BEAKER) (test 2.72 mg/dL 0.57-1.25 code = 358) GLUCOSE RANDOM (BEAKER) 147 mg/dL 70-105 (test code = 652) CALCIUM (BEAKER) (test 8.3 mg/dL 8.4-10.2 code = 697) EGFR (BEAKER) (test code 17 mL/min/1.73 sq m EST IMATED GFR IS NOT = 1092) ACCURATE CREA TININE CLEARANCE IN PRE DICTING GLOMERULAR FILTR ATION RATE. ESTIMATED GFR IS NOT APPLICABLE F OR DIALYSIS PATIENT S. URIC [id number] 07:07:00 Test Item Value Reference Range Comments URIC ACID (BEAKER) (test code = 773) 9.9 mg/dL 2.6-7.2 [id number] 07:07:00 Test Item Value Reference Range Comments MAGNESIUM (BEAKER) (test code = 627) 2.3 mg/dL 1.6-2.6 [id number] 07:07:00 Test Item Value Reference Range Comments PHOSPHORUS (BEAKER) (test code = 604) 3.3 mg/dL 2.3-4.7 B-TYPE NATRIURETIC FACTOR (BNP)2019-01-30 06:44:00 Test Item Value Reference Range Comments B-TYPE NATRIURETIC PEPTIDE (BEAKER) (test code = 365 pg/mL 0-100 700) CALCIUM, [id number] 06:31:00 Test Item Value Reference Range Comments CALCIUM IONIZED (BEAKER) (test code = 698) 1.08 mmol/L 1.12- 1.27 PH, BLOOD (BEAKER) (test code = 1810) 7.41 CBC W/PLT COUNT & AUTO [id number] 06:17:00 Test Item Value Reference Range Comments WHITE BLOOD CELL COUNT (BEAKER) (test code = 7.6 K/ L 3.5 -10.5 775) RED BLOOD CELL COUNT (BEAKER) (test code = 761) 3.23 M/ L 3.93-5.22 HEMOGLOBIN (BEAKER) (test code = 410) 9.9 GM/DL 11.2-15.7 HEMATOCRIT (BEAKER) (test code = 411) 31.1 % 34.1-44.9 MEAN CORPUSCULAR VOLUME (BEAKER) (test code = 96.3 fL 79 .4-94.8 753) MEAN CORPUSCULAR HEMOGLOBIN (BEAKER) (test code 30.7 pg 25.6-32.2 = 751) MEAN CORPUSCULAR HEMOGLOBIN CONC (BEAKER) (test 31.8 GM/DL 32.2-35.5 code = 752) RED CELL DISTRIBUTION WIDTH (BEAKER) (test code 13.4 % 11.7-14.4 = 412) PLATELET COUNT (BEAKER) (test code = 756) 190 K/CU MM 150-45 0 MEAN PLATELET VOLUME (BEAKER) (test code = 754) 10.3 fL 9.4-12.3 NUCLEATED RED BLOOD CELLS (BEAKER) (test code = 0 /100 WBC 0-0 413) NEUTROPHILS RELATIVE PERCENT (BEAKER) (test code 63 % = 429) LYMPHOCYTES RELATIVE PERCENT (BEAKER) (test code 23 % = 430) MONOCYTES RELATIVE PERCENT (BEAKER) (test code = 11 % 431) EOSINOPHILS RELATIVE PERCENT (BEAKER) (test code 3 % = 432) BASOPHILS RELATIVE PERCENT (BEAKER) (test code = 1 % 437) NEUTROPHILS ABSOLUTE COUNT (BEAKER) (test code = 4.74 K/ L 1.56-6.13 670) LYMPHOCYTES ABSOLUTE COUNT (BEAKER) (test code = 1.75 K/ L 1.18-3.74 414) MONOCYTES ABSOLUTE COUNT (BEAKER) (test code = 0.80 K/ L 0 .24-0.36 415) EOSINOPHILS ABSOLUTE COUNT (BEAKER) (test code = 0.23 K/ L 0.04-0.36 416) BASOPHILS ABSOLUTE COUNT (BEAKER) (test code = 0.04 K/ L 0 .01-0.08 417) IMMATURE GRANULOCYTES-RELATIVE PERCENT (BEAKER) 0 % 0-1 (test code = 2801) POCT-GLUCOSE [id number] 21:20:00 Test Item Value Reference Range Comments POC-GLUCOSE METER (BEAKER) 140 mg/dL 70-110 : [facility] [address] (test code = 1538) [facility], [address]: Mid Level Developer/Technic alexandro ID = [id number] for Sukh Maguire jasbir CREATININE, RANDOM [id number] 19:07:00 Test Item Value Reference Range Comments CREATININE URINE (BEAKER) (test code = 375) 101.3 mg/dL Reference Range: No NormalsPROTEIN, RANDOM [id number] 19:07:00 Test Item Value Reference Range Comments PROTEIN, URINE (BEAKER) (test code = 1569) 24 mg/dL 0-14 SODIUM, RANDOM [id number] 19:07:00 Test Item Value Reference Range Comments SODIUM URINE (BEAKER) (test code = 243) 27 meq/L Reference Range: No NormalsPOCT-GLUCOSE [id number] 17:13:00 Test Item Value Reference Range Comments POC-GLUCOSE METER (BEAKER) 172 mg/dL 70-110 : [facility] [address] (test code = 1538) [facility], [address]: Mid Level Developer/Technic alexandro ID = [id number] for SHAR EDWARDSSMITHA URINALYSIS W/ [id number] 15:46:00 Test Item Value Reference Range Comments COLOR (BEAKER) (test code = 470) Yellow CLARITY (BEAKER) (test code = 469) Clear SPECIFIC GRAVITY UA (BEAKER) (test code = 468) 1.014 1 .001-1.035 PH UA (BEAKER) (test code = 467) 5.5 5.0-8.0 PROTEIN UA (BEAKER) (test code = 464) 20 mg/dL Negative GLUCOSE UA (BEAKER) (test code = 365) 300 mg/dL Negative KETONES UA (BEAKER) (test code = 371) Negative Negative BILIRUBIN UA (BEAKER) (test code = 462) Negative Negative BLOOD UA (BEAKER) (test code = 461) Negative Negative NITRITE UA (BEAKER) (test code = 465) Negative Negative LEUKOCYTE ESTERASE UA (BEAKER) (test code = 466) Negative Negative UROBILINOGEN UA (BEAKER) (test code = 463) 0.2 mg/dL 0.2-1 .0 RBC UA (BEAKER) (test code = 519) < /HPF WBC UA (BEAKER) (test code = 520) < /HPF SOURCE(BEAKER) (test code = 2795) BASIC METABOLIC [id number] 13:57:00 Test Item Value Reference Range Comments SODIUM (BEAKER) (test 136 meq/L 136-145 code = 381) POTASSIUM (BEAKER) (test 3.5 meq/L 3.5-5.1 code = 379) CHLORIDE (BEAKER) (test 97 meq/L 98-107 code = 382) CO2 (BEAKER) (test code = 30 meq/L 22-29 355) BLOOD UREA NITROGEN 82 mg/dL 7-21 (BEAKER) (test code = 354) CREATININE (BEAKER) (test 3.06 mg/dL 0.57-1.25 code = 358) GLUCOSE RANDOM (BEAKER) 291 mg/dL 70-105 (test code = 652) CALCIUM (BEAKER) (test 8.6 mg/dL 8.4-10.2 code = 697) EGFR (BEAKER) (test code 15 mL/min/1.73 sq m EST IMATED GFR IS NOT = 1092) ACCURATE CREA TININE CLEARANCE IN PRE DICTING GLOMERULAR FILTR ATION RATE. ESTIMATED GFR IS NOT APPLICABLE F OR DIALYSIS PATIENT S. [id number] 13:56:00 Test Item Value Reference Range Comments PHOSPHORUS (BEAKER) (test code = 604) 2.6 mg/dL 2.3-4.7 [id number] 13:56:00 Test Item Value Reference Range Comments MAGNESIUM (BEAKER) (test code = 627) 2.4 mg/dL 1.6-2.6 RAD, CHEST, 1 VIEW, NON [id number] 13:55:00Reason for exam:->Fluid statusShould this be performed at the bedside?->YesFINAL REPORT AP chest Comparison exam: 01/25/2019 History provided: Fluid status Heart size magnified by projection. Lungs currently grossly clear, and vascularity normal. Chronicdeformity of the right humeral neck. Signed: Atul Malave MDReport Verified Date/Time: 01/29/2019 13:55:37 Reading Location: [facility] Diagnostic Imaging Reading Room - [facility] 1.310.12 POCT-GLUCOSE [id number] 11:49:00 Test Item Value Reference Range Comments POC-GLUCOSE METER (JEEVANAKER) 273 mg/dL 70-110 : [facility] [address] [facility]test code = 1538[facility], [address]: Mid Level Developer/Technic alexandro ID = [id number] for Tatyana Price C. DIFFICILE GDH [id number] 11:07:00 Test Item Value Reference Range Comments CDT TOXIN (test code = Negative Negative [id number]) CDT GDH ANTIGEN (test code = Positive Negative C. difficile present but toxin [id number]) not detected. I ndicates colonization wit h non-toxigenic strain or level of toxin below detectable level s. No need for enteric isolatio n. Treatment is rarely needed (o nly when strong clinical suspici on for Clostridium diff icile infection) Testing performed by [employer] Rapid Cassette Assay. For GDH, published sensitivity of the assay is 98.7% compared to cytotoxicity testing. For Toxin AB, published sensitivity is 87.8% and specificity 99.4% compared to cytotoxicity testing.Verification of kit performance was done by the [facility] Microbiology Lab prior to clinical use.POCT-GLUCOSE [id number] 07:57:00 Test Item Value Reference Range Comments POC-GLUCOSE METER (BEAKER) 227 mg/dL 70-110 : [facility] [address] (test code = 1538) [facility], [address]: Mid Level Developer/Technic alexandro ID = [id number] for Tatyana Price CBC (HEMOGRAM ONLY)2019-01-29 05:39:00 Test Item Value Reference Range Comments WHITE BLOOD CELL COUNT (BEAKER) (test code = 9.0 K/ L 3.5 -10.5 775) RED BLOOD CELL COUNT (BEAKER) (test code = 761) 3.30 M/ L 3.93-5.22 HEMOGLOBIN (BEAKER) (test code = 410) 10.2 GM/DL 11.2-15.7 HEMATOCRIT (BEAKER) (test code = 411) 31.5 % 34.1-44.9 MEAN CORPUSCULAR VOLUME (BEAKER) (test code = 95.5 fL 79 .4-94.8 753) MEAN CORPUSCULAR HEMOGLOBIN (BEAKER) (test code 30.9 pg 25.6-32.2 = 751) MEAN CORPUSCULAR HEMOGLOBIN CONC (BEAKER) (test 32.4 GM/DL 32.2-35.5 code = 752) RED CELL DISTRIBUTION WIDTH (BEAKER) (test code 13.5 % 11.7-14.4 = 412) PLATELET COUNT (BEAKER) (test code = 756) 196 K/CU MM 150-45 0 MEAN PLATELET VOLUME (BEAKER) (test code = 754) 10.3 fL 9.4-12.3 NUCLEATED RED BLOOD CELLS (BEAKER) (test code = 0 /100 WBC 0-0 413) POCT-GLUCOSE [id number] 22:07:00 Test Item Value Reference Range Comments POC-GLUCOSE METER (BEAKER) 229 mg/dL 70-110 : [facility] [address] (test code = 1538) [facility], [address]: Mid Level Developer/Technic alexandro ID = [id number] for SELINA SALAZAR OCCULT BLOOD, [id number] 22:07:00 Test Item Value Reference Range Comments FECAL OCCULT BLOOD (BEAKER) (test code = 618) Negative Ne gative POCT-GLUCOSE [id number] 12:00:00 Test Item Value Reference Range Comments POC-GLUCOSE METER (BEAKER) 208 mg/dL 70-110 : Not ified RN/MD: TESTED AT (test code = 1538) [facility] [address] [facility], [address]: Mid Level Developer/ Geophysical Drafter ID = [id number] for Veena Rodriguez [id number] 09:10:00 Test Item Value Reference Range Comments PARTIAL THROMBOPLASTIN TIME (BEAKER) (test code 77.4 seconds 22.5-36.0 = 760) POCT-GLUCOSE [id number] 08:40:00 Test Item Value Reference Range Comments POC-GLUCOSE METER (BEAKER) 153 mg/dL 70-110 : [facility] [address] (test code = 1538) [facility], [address]: Mid Level Developer/Technic alexandro ID = [id number] for ROHITH INGRAM BASIC METABOLIC [id number] 05:15:00 Test Item Value Reference Range Comments SODIUM (BEAKER) (test 137 meq/L 136-145 code = 381) POTASSIUM (BEAKER) (test 3.5 meq/L 3.5-5.1 code = 379) CHLORIDE (BEAKER) (test 96 meq/L 98-107 code = 382) CO2 (BEAKER) (test code = 30 meq/L 22-29 355) BLOOD UREA NITROGEN 84 mg/dL 7-21 (BEAKER) (test code = 354) CREATININE (BEAKER) (test 3.26 mg/dL 0.57-1.25 code = 358) GLUCOSE RANDOM (BEAKER) 125 mg/dL 70-105 (test code = 652) CALCIUM (BEAKER) (test 8.9 mg/dL 8.4-10.2 code = 697) EGFR (BEAKER) (test code 14 mL/min/1.73 sq m EST IMATED GFR IS NOT = 1092) ACCURATE CREA TININE CLEARANCE IN PRE DICTING GLOMERULAR FILTR ATION RATE. ESTIMATED GFR IS NOT APPLICABLE F OR DIALYSIS PATIENT S. [id number] 05:11:00 Test Item Value Reference Range Comments PARTIAL THROMBOPLASTIN TIME (BEAKER) (test 122.1 seconds 22.5- 36.0 code = 760) CBC (HEMOGRAM ONLY)2019-01-28 04:39:00 Test Item Value Reference Range Comments WHITE BLOOD CELL COUNT (BEAKER) (test code = 6.9 K/ L 3.5 -10.5 775) RED BLOOD CELL COUNT (BEAKER) (test code = 761) 3.53 M/ L 3.93-5.22 HEMOGLOBIN (BEAKER) (test code = 410) 10.9 GM/DL 11.2-15.7 HEMATOCRIT (BEAKER) (test code = 411) 33.4 % 34.1-44.9 MEAN CORPUSCULAR VOLUME (BEAKER) (test code = 94.6 fL 79 .4-94.8 753) MEAN CORPUSCULAR HEMOGLOBIN (BEAKER) (test code 30.9 pg 25.6-32.2 = 751) MEAN CORPUSCULAR HEMOGLOBIN CONC (BEAKER) (test 32.6 GM/DL 32.2-35.5 code = 752) RED CELL DISTRIBUTION WIDTH (BEAKER) (test code 13.7 % 11.7-14.4 = 412) PLATELET COUNT (BEAKER) (test code = 756) 209 K/CU MM 150-45 0 MEAN PLATELET VOLUME (BEAKER) (test code = 754) 9.8 fL 9.4-12.3 NUCLEATED RED BLOOD CELLS (BEAKER) (test code = 0 /100 WBC 0-0 413) POCT-GLUCOSE [id number] 22:29:00 Test Item Value Reference Range Comments POC-GLUCOSE METER (BEAKER) 235 mg/dL 70-110 : [facility] AT [address] (test code = 1538) [facility], [address]: Mid Level Developer/Technic alexandro ID = [id number] for HUGH PEREYRA [id number] 21:49:00 Test Item Value Reference Range Comments PARTIAL THROMBOPLASTIN TIME (BEAKER) (test code 81.9 seconds 22.5-36.0 = 760) POCT-GLUCOSE [id number] 17:50:00 Test Item Value Reference Range Comments POC-GLUCOSE METER (BEAKER) 236 mg/dL 70-110 : [facility] AT [address] (test code = 1538) [facility], [address]: Mid Level Developer/Technic alexandro ID = [id number] for ELLY MCCRAY ED [id number] 16:52:00 Test Item Value Reference Range Comments PROTIME (BEAKER) (test code = 759) 13.7 seconds 11.9-14.2 INR (BEAKER) (test code = 370) 1.1 <=5.9 PARTIAL THROMBOPLASTIN TIME (BEAKER) (test code 60.7 seconds 22.5-36.0 = 760) Effective 07/18/2018: PT Reference Range ChangeNew: 11.9-14.2 Previous: 11.7- 14.7RECOMMENDED COUMADIN/WARFARIN INR THERAPY RANGESSTANDARD DOSE: 2.0-3.0 Includes: PROPHYLAXIS for venous thrombosis, systemic embolization; TREATMENT for venous thrombosis and/or pulmonary embolus.HIGH RISK: Target INR is2.5-3.5 for patients wiht mechanical heart valves.[id number] 13:41:00 Test Item Value Reference Range Comments PROTIME (BEAKER) (test code = 759) 14.1 seconds 11.9-14.2 INR (BEAKER) (test code = 370) 1.2 <=5.9 PARTIAL THROMBOPLASTIN TIME (BEAKER) (test 132.4 seconds 22.5- 36.0 code = 760) Effective 07/18/2018: PT Reference Range ChangeNew: 11.9-14.2 Previous: 11.7- 14.7RECOMMENDED COUMADIN/WARFARIN INR THERAPY RANGESSTANDARD DOSE: 2.0-3.0 Includes: PROPHYLAXIS for venous thrombosis, systemic embolization; TREATMENT for venous thrombosis and/or pulmonary embolus.HIGH RISK: Target INR is2.5-3.5 for patients wiht mechanical heart valves.POCT-GLUCOSE [id number] 12:47:00 Test Item Value Reference Range Comments POC-GLUCOSE METER (BEAKER) 229 mg/dL 70-110 : [facility] AT [facility] [address] [facility] (test code = 1538) [facility], [address]: Mid Level Developer/Technic alexandro ID = [id number] for ELLY MCRCAY ED POCT-GLUCOSE [id number] 09:42:00 Test Item Value Reference Range Comments POC-GLUCOSE METER (BEAKER) 188 mg/dL 70-110 : [facility] AT [facility] [address] (test code = 1538) [place], [address]: Mid Level Developer/Technic alexandro ID = [id number] for ELLY MCCRAY ED [id number] 06:24:00 Test Item Value Reference Range Comments PARTIAL THROMBOPLASTIN TIME (BEAKER) (test code 86.3 seconds 22.5-36.0 = 760) BASIC METABOLIC [id number] 04:52:00 Test Item Value Reference Range Comments SODIUM (BEAKER) (test 140 meq/L 136-145 code = 381) POTASSIUM (BEAKER) (test 3.6 meq/L 3.5-5.1 code = 379) CHLORIDE (BEAKER) (test 99 meq/L 98-107 code = 382) CO2 (BEAKER) (test code = 27 meq/L 22-29 355) BLOOD UREA NITROGEN 77 mg/dL 7-21 (BEAKER) (test code = 354) CREATININE (BEAKER) (test 3.29 mg/dL 0.57-1.25 code = 358) GLUCOSE RANDOM (BEAKER) 135 mg/dL 70-105 (test code = 652) CALCIUM (BEAKER) (test 9.6 mg/dL 8.4-10.2 code = 697) EGFR (BEAKER) (test code 14 mL/min/1.73 sq m EST IMATED GFR IS NOT = 1092) ACCURATE CREA TININE CLEARANCE IN PRE DICTING GLOMERULAR FILTR ATION RATE. ESTIMATED GFR IS NOT APPLICABLE F OR DIALYSIS PATIENT S. [id number] 04:25:00 Test Item Value Reference Range Comments PARTIAL THROMBOPLASTIN TIME (BEAKER) (test 158.8 seconds 22.5- 36.0 code = 760) CBC (HEMOGRAM ONLY)2019-01-27 04:07:00 Test Item Value Reference Range Comments WHITE BLOOD CELL COUNT (BEAKER) (test code = 8.7 K/ L 3.5 -10.5 775) RED BLOOD CELL COUNT (BEAKER) (test code = 761) 4.08 M/ L 3.93-5.22 HEMOGLOBIN (BEAKER) (test code = 410) 12.4 GM/DL 11.2-15.7 HEMATOCRIT (BEAKER) (test code = 411) 39.4 % 34.1-44.9 MEAN CORPUSCULAR VOLUME (BEAKER) (test code = 96.6 fL 79 .4-94.8 753) MEAN CORPUSCULAR HEMOGLOBIN (BEAKER) (test code 30.4 pg 25.6-32.2 = 751) MEAN CORPUSCULAR HEMOGLOBIN CONC (BEAKER) (test 31.5 GM/DL 32.2-35.5 code = 752) RED CELL DISTRIBUTION WIDTH (BEAKER) (test code 13.9 % 11.7-14.4 = 412) PLATELET COUNT (BEAKER) (test code = 756) 227 K/CU MM 150-45 0 MEAN PLATELET VOLUME (BEAKER) (test code = 754) 9.8 fL 9.4-12.3 NUCLEATED RED BLOOD CELLS (BEAKER) (test code = 0 /100 WBC 0-0 413) POCT-GLUCOSE [id number] 04:03:00 Test Item Value Reference Range Comments POC-GLUCOSE METER (BEAKER) 123 mg/dL 70-110 : ANOOP ELVA AT [address] (test code = 1538) [facility], [address]: Mid Level Developer/Technic alexandro ID = [id number] for MALA SLAUGHTER POCT-GLUCOSE [id number] 21:41:00 Test Item Value Reference Range Comments POC-GLUCOSE METER (BEAKER) 293 mg/dL 70-110 : AN[facility]VA AT [address] (test code = 1538) [facility], [address]: Mid Level Developer/Technic alexandro ID = [id number] for MALA SLAUGHTER [id number] 19:17:00 Test Item Value Reference Range Comments PARTIAL THROMBOPLASTIN TIME (BEAKER) (test code 27.4 seconds 22.5-36.0 = 760) Prior to initiating heparinPLATELET [id number] 18:53:00 Test Item Value Reference Range Comments PLATELET COUNT (BEAKER) (test code = 756) 249 K/CU MM 150-45 0 POCT-GLUCOSE [id number] 13:46:00 Test Item Value Reference Range Comments POC-GLUCOSE METER (BEAKER) 246 mg/dL 70-110 : Not ified RN/MD: TESTED AT (test code = 1538) [facility] [address] [facility], [address]: Mid Level Developer/ Geophysical Drafter ID = [id number] for Veena Rodriguez POCT-GLUCOSE [id number] 08:33:00 Test Item Value Reference Range Comments POC-GLUCOSE METER (BEAKER) 124 mg/dL 70-110 : Not ified RN/MD: TESTED AT (test code = 1538) [facility] [address] [facility], [address]: Mid Level Developer/ Geophysical Drafter ID = [id number] for Veena Rodriguez TROPONIN [id number] 07:02:00 Test Item Value Reference Range Comments TROPONIN I (BEAKER) (test code = 397) 0.27 ng/mL 0.00-0.03 Troponin I (TnI) levels [...] Comments WHITE BLOOD CELL COUNT (BEAKER) (test code = 7.0 K/ L 3.5 -10.5 775) RED BLOOD CELL COUNT (BEAKER) (test code = 761) 3.89 M/ L 3.93-5.22 HEMOGLOBIN (BEAKER) (test code = 410) 12.0 GM/DL 11.2-15.7 HEMATOCRIT (BEAKER) (test code = 411) 37.2 % 34.1-44.9 MEAN CORPUSCULAR VOLUME (BEAKER) (test code = 95.6 fL 79 .4-94.8 753) MEAN CORPUSCULAR HEMOGLOBIN (BEAKER) (test code 30.8 pg 25.6-32.2 = 751) MEAN CORPUSCULAR HEMOGLOBIN CONC (BEAKER) (test 32.3 GM/DL 32.2-35.5 code = 752) RED CELL DISTRIBUTION WIDTH (BEAKER) (test code 14.1 % 11.7-14.4 = 412) PLATELET COUNT (BEAKER) (test code = 756) 235 K/CU MM 150-45 0 MEAN PLATELET VOLUME (BEAKER) (test code = 754) 9.9 fL 9.4-12.3 NUCLEATED RED BLOOD CELLS (BEAKER) (test code = 0 /100 WBC 0-0 413) POCT-GLUCOSE [id number] 05:54:00 Test Item Value Reference Range Comments POC-GLUCOSE METER (BEAKER) 94 mg/dL 70-110 : AN[facility]OP ELVA AT [facility] [address] (test code = 1538) [facility], [address]: Mid Level Developer/Technic alexandro ID = [id number] for MALU NORRIS RAD, CHEST, 1 VIEW, NON [id number] 03:34:00Reason for exam:->chest painShould this be performed [...] No acute intrathoracic abnormality. Signed: Yuan Ying [facility] Verified Date/Time: 01/26/2019 03:34:50 TROPONIN [id number] 00:11:00 Test Item Value Reference Range Comments TROPONIN I (BEAKER) (test code = 397) 0.26 ng/mL 0.00-0.03 Troponin I (TnI) levels [...] acute neurological disease, and persistent tachyarrhythmia.COMPREHENSIVE METABOLIC [id number] 00:09:00 Test Item Value Reference Range Comments TOTAL PROTEIN (BEAKER) 6.8 gm/dL 6.0-8.3 Specimen slightly (test code = 770) hemolyzed ALBUMIN (BEAKER) (test 3.7 g/dL 3.5-5.0 Specimen slightly code = 1145) hemolyzed ALKALINE PHOSPHATASE 99 U/L 40-150 (BEAKER) (test code = 346) BILIRUBIN TOTAL (BEAKER) 0.3 mg/dL 0.2-1.2 Specime n slightly (test code = 377) hemolyzed SODIUM (BEAKER) (test code 138 meq/L 136-145 = 381) POTASSIUM (BEAKER) (test 4.0 meq/L 3.5-5.1 Specime n slightly code = 379) hemolyzed CHLORIDE (BEAKER) (test 98 meq/L 98-107 code = 382) CO2 (BEAKER) (test code = 30 meq/L 22-29 355) BLOOD UREA NITROGEN 75 mg/dL 7-21 (BEAKER) (test code = 354) CREATININE (BEAKER) (test 3.06 mg/dL 0.57-1.25 Specim en slightly code = 358) hemolyzed GLUCOSE RANDOM (BEAKER) 197 mg/dL 70-105 (test code = 652) CALCIUM (BEAKER) (test 9.7 mg/dL 8.4-10.2 code = 697) AST (SGOT) (BEAKER) (test 15 U/L 5-34 Specim en slightly code = 353) hemolyzed ALT (SGPT) (BEAKER) (test 10 U/L 6-55 Specim en slightly code = 347) hemolyzed EGFR (BEAKER) (test code = 15 mL/min/1.73 sq m E STIMATED GFR IS NOT 1092) ACCURATE CREA TININE CLEARANCE IN PRE DICTING GLOMERULAR FILTR ATION RATE. ESTIMATED GFR IS NOT APPLICABLE F OR DIALYSIS PATIENT S. B-TYPE NATRIURETIC FACTOR (BNP)2019-01-25 23:58:00 Test Item Value Reference Range Comments B-TYPE NATRIURETIC PEPTIDE (BEAKER) (test code = 638 pg/mL 0-100 700) [id number] 23:56:00 Test Item Value Reference Range Comments MAGNESIUM (BEAKER) (test code = 2.3 mg/dL 1.6-2.6 Specimen slightly hemolyzed 627) [id number] 23:53:00 Test Item Value Reference Range Comments PARTIAL THROMBOPLASTIN TIME (BEAKER) (test code 20.7 seconds 22.5-36.0 = 760) Prior to initiating heparinPROTHROMBIN TIME/[id number] 23:41:00 Test Item Value Reference Range Comments PROTIME (BEAKER) (test code = 759) 13.2 seconds 11.9-14.2 INR (BEAKER) (test code = 370) 1.1 <=5.9 Effective 07/18/2018: PT Reference Range ChangeNew: 11.9-14.2 Previous: 11.7- 14.7RECOMMENDED COUMADIN/WARFARIN INR THERAPY RANGESSTANDARD DOSE: 2.0-3.0 Includes: PROPHYLAXIS for venous thrombosis, systemic embolization; TREATMENT for venous thrombosis and/or pulmonary embolus.HIGH RISK: Target INR is2.5-3.5 for patients wiht mechanical heart valves.Prior to initiating heparinAPTT 2019-01-25 23:41:00 Test Item Value Reference Range Comments PARTIAL THROMBOPLASTIN TIME (BEAKER) (test code 22.3 seconds 22.5-36.0 = 760) 6 hours after starting heparin infusion and as indicated per sliding scaleCBC W/PLT COUNT & AUTO [id number] 23:33:00 Test Item Value Reference Range Comments WHITE BLOOD CELL COUNT (BEAKER) (test code = 7.6 K/ L 3.5 -10.5 775) RED BLOOD CELL COUNT (BEAKER) (test code = 761) 3.62 M/ L 3.93-5.22 HEMOGLOBIN (BEAKER) (test code = 410) 11.2 GM/DL 11.2-15.7 HEMATOCRIT (BEAKER) (test code = 411) 34.7 % 34.1-44.9 MEAN CORPUSCULAR VOLUME (BEAKER) (test code = 95.9 fL 79 .4-94.8 753) MEAN CORPUSCULAR HEMOGLOBIN (BEAKER) (test code 30.9 pg 25.6-32.2 = 751) MEAN CORPUSCULAR HEMOGLOBIN CONC (BEAKER) (test 32.3 GM/DL 32.2-35.5 code = 752) RED CELL DISTRIBUTION WIDTH (BEAKER) (test code 14.2 % 11.7-14.4 = 412) PLATELET COUNT (BEAKER) (test code = 756) 240 K/CU MM 150-45 0 MEAN PLATELET VOLUME (BEAKER) (test code = 754) 9.9 fL 9.4-12.3 NUCLEATED RED BLOOD CELLS (BEAKER) (test code = 0 /100 WBC 0-0 413) NEUTROPHILS RELATIVE PERCENT (BEAKER) (test code 59 % = 429) LYMPHOCYTES RELATIVE PERCENT (BEAKER) (test code 27 % = 430) MONOCYTES RELATIVE PERCENT (BEAKER) (test code = 10 % 431) EOSINOPHILS RELATIVE PERCENT (BEAKER) (test code 3 % = 432) BASOPHILS RELATIVE PERCENT (BEAKER) (test code = 0 % 437) NEUTROPHILS ABSOLUTE COUNT (BEAKER) (test code = 4.47 K/ L 1.56-6.13 670) LYMPHOCYTES ABSOLUTE COUNT (BEAKER) (test code = 2.07 K/ L 1.18-3.74 414) MONOCYTES ABSOLUTE COUNT (BEAKER) (test code = 0.77 K/ L 0 .24-0.36 415) EOSINOPHILS ABSOLUTE COUNT (BEAKER) (test code = 0.24 K/ L 0.04-0.36 416) BASOPHILS ABSOLUTE COUNT (BEAKER) (test code = 0.03 K/ L 0 .01-0.08 417) IMMATURE GRANULOCYTES-RELATIVE PERCENT (BEAKER) 0 % 0-1 (test code = 2801) POCT-GLUCOSE [id number] 22:21:00 Test Item Value Reference Range Comments POC-GLUCOSE METER (BEAKER) 210 mg/dL 70-110 : ANOOP ELVA AT [address] (test code = 1538) [facility], [address]: Mid Level Developer/Technic alexandro ID = [id number] for MALU NORRIS IA POCT-GLUCOSE [id number] 12:57:00 Test Item Value Reference Range Comments POC-GLUCOSE METER (BEAKER) 318 mg/dL 70-110 : AN[facility]VA AT [address] (test code = 1538) [facility], [address]: Mid Level Developer/Technic alexandro ID = [id number] for MICHAEL HAYLEE ISIDORO POCT-GLUCOSE [id number] 08:08:00 Test Item Value Reference Range Comments POC-GLUCOSE METER (BEAKER) 263 mg/dL 70-110 : AN[facility]OP [facility] AT [address] (test code = 1538) [facility], [address]: Mid Level Developer/Technic alexandro ID = [id number] for NOVA CORCORAN CBC W/PLT COUNT & AUTO [id number] 05:21:00 Test Item Value Reference Range Comments WHITE BLOOD CELL COUNT (BEAKER) (test code = 6.6 K/ L 3.5 -10.5 775) RED BLOOD CELL COUNT (BEAKER) (test code = 761) 4.03 M/ L 3.93-5.22 HEMOGLOBIN (BEAKER) (test code = 410) 12.0 GM/DL 11.2-15.7 HEMATOCRIT (BEAKER) (test code = 411) 37.8 % 34.1-44.9 MEAN CORPUSCULAR VOLUME (BEAKER) (test code = 93.8 fL 79 .4-94.8 753) MEAN CORPUSCULAR HEMOGLOBIN (BEAKER) (test code 29.8 pg 25.6-32.2 = 751) MEAN CORPUSCULAR HEMOGLOBIN CONC (BEAKER) (test 31.7 GM/DL 32.2-35.5 code = 752) RED CELL DISTRIBUTION WIDTH (BEAKER) (test code 15.8 % 11.7-14.4 = 412) PLATELET COUNT (BEAKER) (test code = 756) 226 K/CU MM 150-45 0 MEAN PLATELET VOLUME (BEAKER) (test code = 754) 10.5 fL 9.4-12.3 NUCLEATED RED BLOOD CELLS (BEAKER) (test code = 0 /100 WBC 0-0 413) NEUTROPHILS RELATIVE PERCENT (BEAKER) (test code 82 % = 429) LYMPHOCYTES RELATIVE PERCENT (BEAKER) (test code 15 % = 430) MONOCYTES RELATIVE PERCENT (BEAKER) (test code = 1 % 431) EOSINOPHILS RELATIVE PERCENT (BEAKER) (test code 0 % = 432) BASOPHILS RELATIVE PERCENT (BEAKER) (test code = 0 % 437) NEUTROPHILS ABSOLUTE COUNT (BEAKER) (test code = 5.38 K/ L 1.56-6.13 670) LYMPHOCYTES ABSOLUTE COUNT (BEAKER) (test code = 1.01 K/ L 1.18-3.74 414) MONOCYTES ABSOLUTE COUNT (BEAKER) (test code = 0.08 K/ L 0 .24-0.36 415) EOSINOPHILS ABSOLUTE COUNT (BEAKER) (test code = 0.00 K/ L 0.04-0.36 416) BASOPHILS ABSOLUTE COUNT (BEAKER) (test code = 0.02 K/ L 0 .01-0.08 417) IMMATURE GRANULOCYTES-RELATIVE PERCENT (BEAKER) 1 % 0-1 (test code = 2801) BASIC METABOLIC [id number] 05:18:00 Test Item Value Reference Range Comments SODIUM (BEAKER) (test 137 meq/L 136-145 code = 381) POTASSIUM (BEAKER) (test 4.3 meq/L 3.5-5.1 code = 379) CHLORIDE (BEAKER) (test 100 meq/L 98-107 code = 382) CO2 (BEAKER) (test code = 27 meq/L 22-29 355) BLOOD UREA NITROGEN 74 mg/dL 7-21 (BEAKER) (test code = 354) CREATININE (BEAKER) (test 2.85 mg/dL 0.57-1.25 code = 358) GLUCOSE RANDOM (BEAKER) 266 mg/dL 70-105 (test code = 652) CALCIUM (BEAKER) (test 9.5 mg/dL 8.4-10.2 code = 697) EGFR (BEAKER) (test code 16 mL/min/1.73 sq m EST IMATED GFR IS NOT = 1092) ACCURATE CREA TININE CLEARANCE IN PRE DICTING GLOMERULAR FILTR ATION RATE. ESTIMATED GFR IS NOT APPLICABLE F OR DIALYSIS PATIENT S. [id number] 05:17:00 Test Item Value Reference Range Comments PHOSPHORUS (BEAKER) (test code = 604) 4.4 mg/dL 2.3-4.7 [id number] 05:17:00 Test Item Value Reference Range Comments MAGNESIUM (BEAKER) (test code = 627) 2.0 mg/dL 1.6-2.6 B-TYPE NATRIURETIC FACTOR (BNP)2018-12-25 04:55:00 Test Item Value Reference Range Comments B-TYPE NATRIURETIC PEPTIDE (BEAKER) (test code = 775 pg/mL 0-100 700) CALCIUM, [id number] 04:45:00 Test Item Value Reference Range Comments CALCIUM IONIZED (BEAKER) (test code = 698) 1.16 mmol/L 1.12- 1.27 PH, BLOOD (BEAKER) (test code = 1810) 7.32 POCT-GLUCOSE [id number] 23:15:00 Test Item Value Reference Range Comments POC-GLUCOSE METER (BEAKER) 280 mg/dL 70-110 : Not ified RN/MD: TESTED AT (test code = 1538) [address], [address]: Mid Level Developer/ Geophysical Drafter ID = [id number] for GULSHAN OSWALD POCT-GLUCOSE [id number] 23:13:00 Test Item Value Reference Range Comments POC-GLUCOSE METER (BEAKER) 179 mg/dL 70-110 : AN[facility]OP [facility] AT [address] (test code = 1538) [facility], [address]: Mid Level Developer/Technic alexandro ID = [id number] for TABATHA GILMOREA [id number] 22:12:00 Test Item Value Reference Range Comments ACTIVATED CLOTTING TIME 147 sec Referenc e Range: 74-137 (BEAKER) (test code = 441) secon ds, Baseline/TESTED AT [address] [address] [id number] 17:58:00 Test Item Value Reference Range Comments ACTIVATED CLOTTING TIME 257 sec Referenc e Range: 74-137 (BEAKER) (test code = 441) secon ds, Baseline/TESTED AT [address] [address] [id number] 17:57:00 Test Item Value Reference Range Comments ACTIVATED CLOTTING TIME 252 sec Referenc e Range: 74-137 (BEAKER) (test code = 441) secon ds, Baseline/TESTED AT [address] [address] POCT-GLUCOSE [id number] 12:58:00 Test Item Value Reference Range Comments POC-GLUCOSE METER (BEAKER) 150 mg/dL 70-110 : [facility] AT [address] (test code = 1538) [facility], [address]: Mid Level Developer/Technic alexandro ID = [id number] for MONAE LYNN LASHAWN [id number] 08:41:00 Test Item Value Reference Range Comments PARTIAL THROMBOPLASTIN TIME ([facility]) (test code 69.4 seconds 22.5-36.0 = 760) POCT-GLUCOSE [id number] 08:37:00 Test Item Value Reference Range Comments POC-GLUCOSE METER (BEAKER) 115 mg/dL 70-110 : Not ified RN/MD: TESTED AT (test code = 1538) [facility] [address] [facility], [address]: Mid Level Developer/ Geophysical Drafter ID = [id number] for Adilene Morgan COMPREHENSIVE METABOLIC [id number] 01:52:00 Test Item Value Reference Range Comments TOTAL PROTEIN (BEAKER) 6.5 gm/dL 6.0-8.3 Specimen slightly (test code = 770) hemolyzed ALBUMIN (BEAKER) (test 3.6 g/dL 3.5-5.0 Specimen slightly code = 1145) hemolyzed ALKALINE PHOSPHATASE 89 U/L 40-150 (BEAKER) (test code = 346) BILIRUBIN TOTAL (BEAKER) 0.4 mg/dL 0.2-1.2 Specime n slightly (test code = 377) hemolyzed SODIUM (BEAKER) (test code 136 meq/L 136-145 = 381) POTASSIUM (BEAKER) (test 4.0 meq/L 3.5-5.1 Specime n slightly code = 379) hemolyzed CHLORIDE (BEAKER) (test 100 meq/L 98-107 code = 382) CO2 (BEAKER) (test code = 24 meq/L 22-29 355) BLOOD UREA NITROGEN 77 mg/dL 7-21 (BEAKER) (test code = 354) CREATININE (BEAKER) (test 2.79 mg/dL 0.57-1.25 Specim en slightly code = 358) hemolyzed GLUCOSE RANDOM (BEAKER) 89 mg/dL 70-105 (test code = 652) CALCIUM (BEAKER) (test 9.3 mg/dL 8.4-10.2 code = 697) AST (SGOT) (BEAKER) (test 18 U/L 5-34 Specim en slightly code = 353) hemolyzed ALT (SGPT) (BEAKER) (test 10 U/L 6-55 Specim en slightly code = 347) hemolyzed EGFR (BEAKER) (test code = 16 mL/min/1.73 sq m E STIMATED GFR IS NOT 1092) ACCURATE CREA TININE CLEARANCE IN PRE DICTING GLOMERULAR FILTR ATION RATE. ESTIMATED GFR IS NOT APPLICABLE F OR DIALYSIS PATIENT S. [id number] 01:29:00 Test Item Value Reference Range Comments PARTIAL THROMBOPLASTIN TIME (BEAKER) (test code 51.5 seconds 22.5-36.0 = 760) POCT-GLUCOSE [id number] 18:32:00 Test Item Value Reference Range Comments POC-GLUCOSE METER (BEAKER) 185 mg/dL 70-110 : [facility] AT [address] (test code = 1538) [facility], [address]: Mid Level Developer/Technic alexandro ID = [id number] for Suhail Resendiz POCT-GLUCOSE [id number] 18:31:00 Test Item Value Reference Range Comments POC-GLUCOSE METER (BEAKER) 210 mg/dL 70-110 : [facility] AT [address] (test code = 1538) [facility], [address]: Mid Level Developer/Technic alexandro ID = [id number] for Suhail Resendiz POCT-GLUCOSE [id number] 18:29:00 Test Item Value Reference Range Comments POC-GLUCOSE METER (BEAKER) 150 mg/dL 70-110 : AN[facility] AT [address] (test code = 1538) [facility], [address]: Mid Level Developer/Technic alexandro ID = [id number] for LIZ WATSON [id number] 16:30:00 Test Item Value Reference Range Comments PARTIAL THROMBOPLASTIN TIME (BEAKER) (test code 98.0 seconds 22.5-36.0 = 760) TROPONIN [id number] 09:11:00 Test Item Value Reference Range Comments TROPONIN I (BEAKER) (test code = 397) 0.97 ng/mL 0.00-0.03 Troponin I (TnI) levels [...] failure, acidosis, acute neurological disease, and persistent tachyarrhythmia.[id number] 07:52:00 Test Item Value Reference Range Comments PHOSPHORUS (BEAKER) (test code = 604) 3.9 mg/dL 2.3-4.7 [id number] 07:52:00 Test Item Value Reference Range Comments MAGNESIUM (BEAKER) (test code = 627) 2.0 mg/dL 1.6-2.6 COMPREHENSIVE METABOLIC [id number] 07:52:00 Test Item Value Reference Range Comments TOTAL PROTEIN (BEAKER) 6.0 gm/dL 6.0-8.3 (test code = 770) ALBUMIN (BEAKER) (test 3.4 g/dL 3.5-5.0 code = 1145) ALKALINE PHOSPHATASE 81 U/L 40-150 (BEAKER) (test code = 346) BILIRUBIN TOTAL (BEAKER) 0.5 mg/dL 0.2-1.2 (test code = 377) SODIUM (BEAKER) (test code 138 meq/L 136-145 = 381) POTASSIUM (BEAKER) (test 3.6 meq/L 3.5-5.1 code = 379) CHLORIDE (BEAKER) (test 100 meq/L 98-107 code = 382) CO2 (BEAKER) (test code = 28 meq/L 22-29 355) BLOOD UREA NITROGEN 82 mg/dL 7-21 (BEAKER) (test code = 354) CREATININE (BEAKER) (test 3.06 mg/dL 0.57-1.25 code = 358) GLUCOSE RANDOM (BEAKER) 128 mg/dL 70-105 (test code = 652) CALCIUM (BEAKER) (test 8.9 mg/dL 8.4-10.2 code = 697) AST (SGOT) (BEAKER) (test 15 U/L 5-34 code = 353) ALT (SGPT) (BEAKER) (test 10 U/L 6-55 code = 347) EGFR (BEAKER) (test code = 15 mL/min/1.73 sq m E STIMATED GFR IS NOT 1092) ACCURATE CREA TININE CLEARANCE IN PRE DICTING GLOMERULAR FILTR ATION RATE. ESTIMATED GFR IS NOT APPLICABLE F OR DIALYSIS PATIENT S. CALCIUM, [id number] 07:37:00 Test Item Value Reference Range Comments CALCIUM IONIZED (BEAKER) (test code = 698) 1.14 mmol/L 1.12- 1.27 PH, BLOOD (BEAKER) (test code = 1810) 7.40 B-TYPE NATRIURETIC FACTOR (BNP)2018-12-23 06:42:00 Test Item Value Reference Range Comments B-TYPE NATRIURETIC PEPTIDE (BEAKER) (test code = 190 pg/mL 0-100 700) [id number] 05:48:00 Test Item Value Reference Range Comments PARTIAL THROMBOPLASTIN TIME (BEAKER) (test code 90.8 seconds 22.5-36.0 = 760) CBC W/PLT COUNT & AUTO [id number] 05:35:00 Test Item Value Reference Range Comments WHITE BLOOD CELL COUNT (BEAKER) (test code = 7.7 K/ L 3.5 -10.5 775) RED BLOOD CELL COUNT (BEAKER) (test code = 761) 3.43 M/ L 3.93-5.22 HEMOGLOBIN (BEAKER) (test code = 410) 10.2 GM/DL 11.2-15.7 HEMATOCRIT (BEAKER) (test code = 411) 31.2 % 34.1-44.9 MEAN CORPUSCULAR VOLUME (BEAKER) (test code = 91.0 fL 79 .4-94.8 753) MEAN CORPUSCULAR HEMOGLOBIN (BEAKER) (test code 29.7 pg 25.6-32.2 = 751) MEAN CORPUSCULAR HEMOGLOBIN CONC (BEAKER) (test 32.7 GM/DL 32.2-35.5 code = 752) RED CELL DISTRIBUTION WIDTH (BEAKER) (test code 15.8 % 11.7-14.4 = 412) PLATELET COUNT (BEAKER) (test code = 756) 188 K/CU MM 150-45 0 MEAN PLATELET VOLUME (BEAKER) (test code = 754) 10.0 fL 9.4-12.3 NUCLEATED RED BLOOD CELLS (BEAKER) (test code = 0 /100 WBC 0-0 413) NEUTROPHILS RELATIVE PERCENT (BEAKER) (test code 65 % = 429) LYMPHOCYTES RELATIVE PERCENT (BEAKER) (test code 19 % = 430) MONOCYTES RELATIVE PERCENT (BEAKER) (test code = 9 % 431) EOSINOPHILS RELATIVE PERCENT (BEAKER) (test code 6 % = 432) BASOPHILS RELATIVE PERCENT (BEAKER) (test code = 1 % 437) NEUTROPHILS ABSOLUTE COUNT (BEAKER) (test code = 4.99 K/ L 1.56-6.13 670) LYMPHOCYTES ABSOLUTE COUNT (BEAKER) (test code = 1.46 K/ L 1.18-3.74 414) MONOCYTES ABSOLUTE COUNT (BEAKER) (test code = 0.68 K/ L 0 .24-0.36 415) EOSINOPHILS ABSOLUTE COUNT (BEAKER) (test code = 0.47 K/ L 0.04-0.36 416) BASOPHILS ABSOLUTE COUNT (BEAKER) (test code = 0.04 K/ L 0 .01-0.08 417) IMMATURE GRANULOCYTES-RELATIVE PERCENT (BEAKER) 1 % 0-1 (test code = 2801) POCT-GLUCOSE [id number] 21:16:00 Test Item Value Reference Range Comments POC-GLUCOSE METER (BEAKER) 200 mg/dL 70-110 : ANOOP [facility]VA AT [address] (test code = 1538) [facility], [address]: Mid Level Developer/Technic alexandro ID = [id number] for RAMO LOWERY [id number] 20:08:00 Test Item Value Reference Range Comments PARTIAL THROMBOPLASTIN TIME (BEAKER) (test code 51.9 seconds 22.5-36.0 = 760) POCT-GLUCOSE [id number] 17:37:00 Test Item Value Reference Range Comments POC-GLUCOSE METER (BEAKER) 211 mg/dL 70-110 : ANOOP ELVA AT [address] (test code = 1538) [facility], [address]: Mid Level Developer/Technic alexandro ID = [id number] for Pedro Duenas le [id number] 13:26:00 Test Item Value Reference Range Comments PARTIAL THROMBOPLASTIN TIME (BEAKER) (test code 65.2 seconds 22.5-36.0 = 760) POCT-GLUCOSE [id number] 13:18:00 Test Item Value Reference Range Comments POC-GLUCOSE METER (BEAKER) 194 mg/dL 70-110 : ANOOP ELVA AT [address] (test code = 1538) [facility], [address]: Mid Level Developer/Technic alexandro ID = [id number] for Pedro Duenas le HEMOGLOBIN [id number] 10:07:00 Test Item Value Reference Range Comments HEMOGLOBIN A1C (BEAKER) (test code = 368) 10.2 % 4.3-6. 1 [id number] 09:05:00 Test Item Value Reference Range Comments FERRITIN (BEAKER) (test code = 361) 195 ng/mL 5-275 POCT-GLUCOSE [id number] 08:37:00 Test Item Value Reference Range Comments POC-GLUCOSE METER (BEAKER) 202 mg/dL 70-110 : AN[facility]OP ELVA AT [facility] [address] (test code = 1538) [place], [address]: Mid Level Developer/Technic alexandro ID = [id number] for LUAN MCDONNELL CALCIUM, [id number] 06:55:00 Test Item Value Reference Range Comments CALCIUM IONIZED (BEAKER) (test code = 698) 1.11 mmol/L 1.12- 1.27 PH, BLOOD (BEAKER) (test code = 1810) 7.41 IRON, TIBC, % SAT. (WITHOUT FERRITIN)2018-12-22 06:37:00 Test Item Value Reference Range Comments IRON (BEAKER) (test code = 547) 85.0 ug/dL 40.0-160.0 TOTAL IRON BINDING CAPACITY (BEAKER) (test code = 226 ug/dL 250-450 769) IRON % SATURATION (2) (BEAKER) (test code = 2590) 38 % 20-55 TROPONIN [id number] 05:40:00 Test Item Value Reference Range Comments TROPONIN I (BEAKER) (test code = 397) 1.32 ng/mL 0.00-0.03 Troponin I (TnI) levels [...] acute neurological disease, and persistent tachyarrhythmia.COMPREHENSIVE METABOLIC [id number] 05:39:00 Test Item Value Reference Range Comments TOTAL PROTEIN (BEAKER) 6.2 gm/dL 6.0-8.3 (test code = 770) ALBUMIN (BEAKER) (test 3.4 g/dL 3.5-5.0 code = 1145) ALKALINE PHOSPHATASE 81 U/L 40-150 (BEAKER) (test code = 346) BILIRUBIN TOTAL (BEAKER) 0.6 mg/dL 0.2-1.2 (test code = 377) SODIUM (BEAKER) (test code 135 meq/L 136-145 = 381) POTASSIUM (BEAKER) (test 3.9 meq/L 3.5-5.1 code = 379) CHLORIDE (BEAKER) (test 97 meq/L 98-107 code = 382) CO2 (BEAKER) (test code = 30 meq/L 22-29 355) BLOOD UREA NITROGEN 77 mg/dL 7-21 (BEAKER) (test code = 354) CREATININE (BEAKER) (test 3.61 mg/dL 0.57-1.25 code = 358) GLUCOSE RANDOM (BEAKER) 156 mg/dL 70-105 (test code = 652) CALCIUM (BEAKER) (test 9.0 mg/dL 8.4-10.2 code = 697) AST (SGOT) (BEAKER) (test 14 U/L 5-34 code = 353) ALT (SGPT) (BEAKER) (test 6 U/L 6-55 code = 347) EGFR (BEAKER) (test code = 12 mL/min/1.73 sq m E STIMATED GFR IS NOT 1092) ACCURATE CREA TININE CLEARANCE IN PRE DICTING GLOMERULAR FILTR ATION RATE. ESTIMATED GFR IS NOT APPLICABLE F OR DIALYSIS PATIENT S. B-TYPE NATRIURETIC FACTOR (BNP)2018-12-22 05:33:00 Test Item Value Reference Range Comments B-TYPE NATRIURETIC PEPTIDE (BEAKER) (test code = 221 pg/mL 0-100 700) [id number] 05:32:00 Test Item Value Reference Range Comments PHOSPHORUS (BEAKER) (test code = 604) 4.8 mg/dL 2.3-4.7 [id number] 05:32:00 Test Item Value Reference Range Comments MAGNESIUM (BEAKER) (test code = 627) 2.0 mg/dL 1.6-2.6 [id number] 05:19:00 Test Item Value Reference Range Comments PARTIAL THROMBOPLASTIN TIME (BEAKER) (test code 92.9 seconds 22.5-36.0 = 760) RETICULOCYTE [id number] 05:11:00 Test Item Value Reference Range Comments RETICULOCYTE COUNT PCT (BEAKER) (test code = 575) 2.0 % 0.5-1.7 CBC W/PLT COUNT & AUTO [id number] 05:11:00 Test Item Value Reference Range Comments WHITE BLOOD CELL COUNT (BEAKER) (test code = 7.4 K/ L 3.5 -10.5 775) RED BLOOD CELL COUNT (BEAKER) (test code = 761) 3.42 M/ L 3.93-5.22 HEMOGLOBIN (BEAKER) (test code = 410) 10.1 GM/DL 11.2-15.7 HEMATOCRIT (BEAKER) (test code = 411) 31.4 % 34.1-44.9 MEAN CORPUSCULAR VOLUME (BEAKER) (test code = 91.8 fL 79 .4-94.8 753) MEAN CORPUSCULAR HEMOGLOBIN (BEAKER) (test code 29.5 pg 25.6-32.2 = 751) MEAN CORPUSCULAR HEMOGLOBIN CONC (BEAKER) (test 32.2 GM/DL 32.2-35.5 code = 752) RED CELL DISTRIBUTION WIDTH (BEAKER) (test code 15.9 % 11.7-14.4 = 412) PLATELET COUNT (BEAKER) (test code = 756) 192 K/CU MM 150-45 0 MEAN PLATELET VOLUME (BEAKER) (test code = 754) 10.5 fL 9.4-12.3 NUCLEATED RED BLOOD CELLS (BEAKER) (test code = 0 /100 WBC 0-0 413) NEUTROPHILS RELATIVE PERCENT (BEAKER) (test code 55 % = 429) LYMPHOCYTES RELATIVE PERCENT (BEAKER) (test code 26 % = 430) MONOCYTES RELATIVE PERCENT (BEAKER) (test code = 12 % 431) EOSINOPHILS RELATIVE PERCENT (BEAKER) (test code 7 % = 432) BASOPHILS RELATIVE PERCENT (BEAKER) (test code = 1 % 437) NEUTROPHILS ABSOLUTE COUNT (BEAKER) (test code = 4.05 K/ L 1.56-6.13 670) LYMPHOCYTES ABSOLUTE COUNT (BEAKER) (test code = 1.89 K/ L 1.18-3.74 414) MONOCYTES ABSOLUTE COUNT (BEAKER) (test code = 0.86 K/ L 0 .24-0.36 415) EOSINOPHILS ABSOLUTE COUNT (BEAKER) (test code = 0.49 K/ L 0.04-0.36 416) BASOPHILS ABSOLUTE COUNT (BEAKER) (test code = 0.04 K/ L 0 .01-0.08 417) IMMATURE GRANULOCYTES-RELATIVE PERCENT (BEAKER) 1 % 0-1 (test code = 2801) U/S, RENAL, [id number] 01:46:00Reason for exam:->AKIShould this be performed at the bedside?->YesFINAL REPORT TECHNIQUE: Grayscale ultrasound of the kidneys and bladder. INDICATION: OTIS. COMPARISON: 08/02/2018. FINDINGS: RIGHT KIDNEY: The right kidney measures [...] mass lesions. There is a nonobstructing stone that is 0.9 x 1.1 x 1.0 cm No hydronephrosis. Renal artery and vein are patent. BLADDER: Unremarkable. IMPRESSION:Bilateral nonobstructing nephrolithiasis. Otherwise, unremarkable ultrasound. Signed: Yuan Ying MDReport Verified Date/Time: 12/22/2018 01:46:35 POCT-GLUCOSE [id number] 22:07:00 Test Item Value Reference Range Comments POC-GLUCOSE METER (BEAKER) 105 mg/dL 70-110 : ANOOP [facility]SQUE[facility] [facility] (test code = 1538) [facility], [address]: Mid Level Developer/Technic alexandro ID = [id number] for Thurman, Jeannette torres [id number] 20:19:00 Test Item Value Reference Range Comments PARTIAL THROMBOPLASTIN TIME (BEAKER) (test code 75.7 seconds 22.5-36.0 = 760) POCT-GLUCOSE [id number] 17:42:00 Test Item Value Reference Range Comments POC-GLUCOSE METER (BEAKER) 305 mg/dL 70-110 : ANOOP VELÁSQUEZ AT [facility] [address] (test code = 1538) [place], [address]: Mid Level Developer/Technic alexandro ID = [id number] for LUAN MCDONNELL URINALYSIS W/ [id number] 14:46:00 Test Item Value Reference Range Comments COLOR (BEAKER) (test code = 470) Yellow CLARITY (BEAKER) (test code = 469) Clear SPECIFIC GRAVITY UA (BEAKER) (test code = 468) 1.015 1 .001-1.035 PH UA (BEAKER) (test code = 467) 5.0 5.0-8.0 PROTEIN UA (BEAKER) (test code = 464) 10 mg/dL Negative GLUCOSE UA (BEAKER) (test code = 365) 30 mg/dL Negative KETONES UA (BEAKER) (test code = 371) Negative Negative BILIRUBIN UA (BEAKER) (test code = 462) Negative Negative BLOOD UA (BEAKER) (test code = 461) Negative Negative NITRITE UA (BEAKER) (test code = 465) Negative Negative LEUKOCYTE ESTERASE UA (BEAKER) (test code = 466) Small Negative UROBILINOGEN UA (BEAKER) (test code = 463) 0.2 mg/dL 0.2-1 .0 RBC UA (BEAKER) (test code = 519) 1 /HPF WBC UA (BEAKER) (test code = 520) 3 /HPF SQUAMOUS EPITHELIAL (BEAKER) (test code = 516) 1 /HPF HYALINE CASTS (BEAKER) (test code = 514) 7 /LPF SOURCE(BEAKER) (test code = 2795) CREATININE, RANDOM [id number] 14:45:00 Test Item Value Reference Range Comments CREATININE URINE (BEAKER) (test code = 375) 123.0 mg/dL Reference Range: No [id number] 14:24:00 Test Item Value Reference Range Comments PARTIAL THROMBOPLASTIN TIME (BEAKER) (test code 67.3 seconds 22.5-36.0 = 760) PROTEIN, RANDOM [id number] 14:23:00 Test Item Value Reference Range Comments PROTEIN, URINE (BEAKER) (test code = 1569) 20 mg/dL 0-14 SODIUM, RANDOM [id number] 14:23:00 Test Item Value Reference Range Comments SODIUM URINE (BEAKER) (test code = 243) 26 meq/L Reference Range: No NormalsTROPONIN [id number] 12:25:00 Test Item Value Reference Range Comments TROPONIN I (BEAKER) (test code = 397) 2.12 ng/mL 0.00-0.03 Troponin I (TnI) levels [...] acidosis, acute neurological disease, and persistent tachyarrhythmia.POCT-GLUCOSE [id number] 10:12:00 Test Item Value Reference Range Comments POC-GLUCOSE METER (BEAKER) 177 mg/dL 70-110 : ANOOP ELVA AT [facility] [address] [facility] (test code = 1538) [facility], [address]: Mid Level Developer/Technic alexandro ID = [id number] for LUAN MCDONNELL PT/[id number] 07:55:00 Test Item Value Reference Range Comments PROTIME (BEAKER) (test code = 759) 14.1 seconds 11.9-14.2 INR (BEAKER) (test code = 370) 1.2 <=5.9 PARTIAL THROMBOPLASTIN TIME (BEAKER) (test code 55.3 seconds 22.5-36.0 = 760) Effective 07/18/2018: PT Reference Range ChangeNew: 11.9-14.2 Previous: 11.7- 14.7RECOMMENDED COUMADIN/WARFARIN INR THERAPY RANGESSTANDARD DOSE: 2.0-3.0 Includes: PROPHYLAXIS for venous thrombosis, systemic embolization; TREATMENT for venous thrombosis and/or pulmonary embolus.HIGH RISK: Target INR is2.5-3.5 for patients wiht mechanical heart valves.[id number] 05:00:00 Test Item Value Reference Range Comments PARTIAL THROMBOPLASTIN TIME (BEAKER) (test 132.7 seconds 22.5- 36.0 code = 760) 6 hours after starting heparin infusion and as indicated per sliding scale TROPONIN [id number] 04:38:00 Test Item Value Reference Range Comments TROPONIN I (BEAKER) (test code = 397) 2.37 ng/mL 0.00-0.03 Troponin I (TnI) levels [...] acute neurological disease, and persistent tachyarrhythmia.BASIC METABOLIC [id number] 04:37:00 Test Item Value Reference Range Comments SODIUM (BEAKER) (test 139 meq/L 136-145 code = 381) POTASSIUM (BEAKER) (test 3.2 meq/L 3.5-5.1 code = 379) CHLORIDE (BEAKER) (test 98 meq/L 98-107 code = 382) CO2 (BEAKER) (test code = 33 meq/L 22-29 355) BLOOD UREA NITROGEN 63 mg/dL 7-21 (BEAKER) (test code = 354) CREATININE (BEAKER) (test 3.13 mg/dL 0.57-1.25 code = 358) GLUCOSE RANDOM (BEAKER) 161 mg/dL 70-105 (test code = 652) CALCIUM (BEAKER) (test 9.4 mg/dL 8.4-10.2 code = 697) EGFR (BEAKER) (test code 14 mL/min/1.73 sq m EST IMATED GFR IS NOT = 1092) ACCURATE CREA TININE CLEARANCE IN PRE DICTING GLOMERULAR FILTR ATION RATE. ESTIMATED GFR IS NOT APPLICABLE F OR DIALYSIS PATIENT S. CBC (HEMOGRAM ONLY)2018-12-21 04:09:00 Test Item Value Reference Range Comments WHITE BLOOD CELL COUNT (BEAKER) (test code = 7.1 K/ L 3.5 -10.5 775) RED BLOOD CELL COUNT (BEAKER) (test code = 761) 3.62 M/ L 3.93-5.22 HEMOGLOBIN (BEAKER) (test code = 410) 10.9 GM/DL 11.2-15.7 HEMATOCRIT (BEAKER) (test code = 411) 33.3 % 34.1-44.9 MEAN CORPUSCULAR VOLUME (BEAKER) (test code = 92.0 fL 79 .4-94.8 753) MEAN CORPUSCULAR HEMOGLOBIN (BEAKER) (test code 30.1 pg 25.6-32.2 = 751) MEAN CORPUSCULAR HEMOGLOBIN CONC (BEAKER) (test 32.7 GM/DL 32.2-35.5 code = 752) RED CELL DISTRIBUTION WIDTH (BEAKER) (test code 15.8 % 11.7-14.4 = 412) PLATELET COUNT (BEAKER) (test code = 756) 188 K/CU MM 150-45 0 MEAN PLATELET VOLUME (BEAKER) (test code = 754) 10.2 fL 9.4-12.3 NUCLEATED RED BLOOD CELLS (BEAKER) (test code = 0 /100 WBC 0-0 413) TROPONIN [id number] 01:13:00 Test Item Value Reference Range Comments TROPONIN I (BEAKER) (test code = 397) 2.09 ng/mL 0.00-0.03 Troponin I (TnI) levels [...] acidosis, acute neurological disease, and persistent tachyarrhythmia.POCT-GLUCOSE [id number] 00:48:00 Test Item Value Reference Range Comments POC-GLUCOSE METER (BEAKER) 226 mg/dL 70-110 : ANOOP ELVA AT [facility] [address] [facility] (test code = 1538) [facility], [address]: Mid Level Developer/Technic alexandro ID = [id number] for ELAYNE BISHOP, CHEST, 1 VIEW, NON [id number] 21:25:00Reason for exam:->chest painShould this be performed [...] of both proximal humeral heads are redemonstrated. Signed: Wilson Valdez MDReport Verified Date/Time:12/20/2018 21:25:44 TROPONIN [id number] 21:11:00 Test Item Value Reference Range Comments TROPONIN I (BEAKER) (test code = 397) 1.33 ng/mL 0.00-0.03 Troponin I (TnI) levels [...] disease, and persistent tachyarrhythmia.B-TYPE NATRIURETIC FACTOR (BNP) 2018-12-20 21:08:00 Test Item Value Reference Range Comments B-TYPE NATRIURETIC PEPTIDE (BEAKER) (test code = 1084 pg/mL 0-100 700) COMPREHENSIVE METABOLIC [id number] 21:05:00 Test Item Value Reference Range Comments TOTAL PROTEIN (BEAKER) 6.5 gm/dL 6.0-8.3 (test code = 770) ALBUMIN (BEAKER) (test 3.6 g/dL 3.5-5.0 code = 1145) ALKALINE PHOSPHATASE 120 U/L 40-150 (BEAKER) (test code = 346) BILIRUBIN TOTAL (BEAKER) 0.5 mg/dL 0.2-1.2 (test code = 377) SODIUM (BEAKER) (test code 137 meq/L 136-145 = 381) POTASSIUM (BEAKER) (test 3.3 meq/L 3.5-5.1 code = 379) CHLORIDE (BEAKER) (test 96 meq/L 98-107 code = 382) CO2 (BEAKER) (test code = 32 meq/L 22-29 355) BLOOD UREA NITROGEN 60 mg/dL 7-21 (BEAKER) (test code = 354) CREATININE (BEAKER) (test 2.83 mg/dL 0.57-1.25 code = 358) GLUCOSE RANDOM (BEAKER) 234 mg/dL 70-105 (test code = 652) CALCIUM (BEAKER) (test 9.3 mg/dL 8.4-10.2 code = 697) AST (SGOT) (BEAKER) (test 14 U/L 5-34 code = 353) ALT (SGPT) (BEAKER) (test 7 U/L 6-55 code = 347) EGFR (BEAKER) (test code = 16 mL/min/1.73 sq m E STIMATED GFR IS NOT 1092) ACCURATE CREA TININE CLEARANCE IN PRE DICTING GLOMERULAR FILTR ATION RATE. ESTIMATED GFR IS NOT APPLICABLE F OR DIALYSIS PATIENT S. [id number] 21:02:00 Test Item Value Reference Range Comments MAGNESIUM (BEAKER) (test code = 627) 2.0 mg/dL 1.6-2.6 PT/[id number] 20:58:00 Test Item Value Reference Range Comments PROTIME (BEAKER) (test code = 759) 13.3 seconds 11.9-14.2 INR (BEAKER) (test code = 370) 1.1 <=5.9 PARTIAL THROMBOPLASTIN TIME (BEAKER) (test code 26.3 seconds 22.5-36.0 = 760) Effective 07/18/2018: PT Reference Range ChangeNew: 11.9-14.2 Previous: 11.7- 14.7RECOMMENDED COUMADIN/WARFARIN INR THERAPY RANGESSTANDARD DOSE: 2.0-3.0 Includes: PROPHYLAXIS for venous thrombosis, systemic embolization; TREATMENT for venous thrombosis and/or pulmonary embolus.HIGH RISK: Target INR is2.5-3.5 for patients wiht mechanical heart valves.CBC W/PLT COUNT & AUTO [id number] 20:46:00 Test Item Value Reference Range Comments WHITE BLOOD CELL COUNT (BEAKER) (test code = 7.7 K/ L 3.5 -10.5 775) RED BLOOD CELL COUNT (BEAKER) (test code = 761) 3.86 M/ L 3.93-5.22 HEMOGLOBIN (BEAKER) (test code = 410) 11.5 GM/DL 11.2-15.7 HEMATOCRIT (BEAKER) (test code = 411) 35.0 % 34.1-44.9 MEAN CORPUSCULAR VOLUME (BEAKER) (test code = 90.7 fL 79 .4-94.8 753) MEAN CORPUSCULAR HEMOGLOBIN (BEAKER) (test code 29.8 pg 25.6-32.2 = 751) MEAN CORPUSCULAR HEMOGLOBIN CONC (BEAKER) (test 32.9 GM/DL 32.2-35.5 code = 752) RED CELL DISTRIBUTION WIDTH (BEAKER) (test code 15.5 % 11.7-14.4 = 412) PLATELET COUNT (BEAKER) (test code = 756) 199 K/CU MM 150-45 0 MEAN PLATELET VOLUME (BEAKER) (test code = 754) 9.8 fL 9.4-12.3 NUCLEATED RED BLOOD CELLS (BEAKER) (test code = 0 /100 WBC 0-0 413) NEUTROPHILS RELATIVE PERCENT (BEAKER) (test code 63 % = 429) LYMPHOCYTES RELATIVE PERCENT (BEAKER) (test code 21 % = 430) MONOCYTES RELATIVE PERCENT (BEAKER) (test code = 9 % 431) EOSINOPHILS RELATIVE PERCENT (BEAKER) (test code 5 % = 432) BASOPHILS RELATIVE PERCENT (BEAKER) (test code = 1 % 437) NEUTROPHILS ABSOLUTE COUNT (BEAKER) (test code = 4.83 K/ L 1.56-6.13 670) LYMPHOCYTES ABSOLUTE COUNT (BEAKER) (test code = 1.63 K/ L 1.18-3.74 414) MONOCYTES ABSOLUTE COUNT (BEAKER) (test code = 0.72 K/ L 0 .24-0.36 415) EOSINOPHILS ABSOLUTE COUNT (BEAKER) (test code = 0.41 K/ L 0.04-0.36 416) BASOPHILS ABSOLUTE COUNT (BEAKER) (test code = 0.04 K/ L 0 .01-0.08 417) IMMATURE GRANULOCYTES-RELATIVE PERCENT (BEAKER) 1 % 0-1 (test code = 2801) POCT-GLUCOSE [id number] 11:57:00 Test Item Value Reference Range Comments POC-GLUCOSE METER (BEAKER) 377 mg/dL 70-110 TESTE D AT [facility] [address] [facility] (test code = 1538) [facility] [address] POCT-GLUCOSE [id number] 09:11:00 Test Item Value Reference Range Comments POC-GLUCOSE METER (BEAKER) 95 mg/dL 70-110 TESTE D AT [facility] [address] [facility] (test code = 1538) [facility] [address] POCT-GLUCOSE [id number] 06:53:00 Test Item Value Reference Range Comments POC-GLUCOSE METER (BEAKER) 288 mg/dL 70-110 TESTE D AT [facility] [address] [facility] (test code = 1538) [place] [address] COMPREHENSIVE METABOLIC [id number] 01:54:00 Test Item Value Reference Range Comments TOTAL PROTEIN (BEAKER) 6.1 gm/dL 6.0-8.3 Specimen slightly (test code = 770) hemolyzed ALBUMIN (BEAKER) (test 3.3 g/dL 3.5-5.0 Specimen slightly code = 1145) hemolyzed ALKALINE PHOSPHATASE 91 U/L 40-150 (BEAKER) (test code = 346) BILIRUBIN TOTAL (BEAKER) 0.5 mg/dL 0.2-1.2 Specime n slightly (test code = 377) hemolyzed SODIUM (BEAKER) (test code 134 meq/L 136-145 = 381) POTASSIUM (BEAKER) (test 4.0 meq/L 3.5-5.1 Specime n slightly code = 379) hemolyzed CHLORIDE (BEAKER) (test 101 meq/L 98-107 code = 382) CO2 (BEAKER) (test code = 21 meq/L 22-29 355) BLOOD UREA NITROGEN 65 mg/dL 7-21 (BEAKER) (test code = 354) CREATININE (BEAKER) (test 2.75 mg/dL 0.57-1.25 Specim en slightly code = 358) hemolyzed GLUCOSE RANDOM (BEAKER) 434 mg/dL 70-105 (test code = 652) CALCIUM (BEAKER) (test 8.4 mg/dL 8.4-10.2 code = 697) AST (SGOT) (BEAKER) (test 18 U/L 5-34 Specim en slightly code = 353) hemolyzed ALT (SGPT) (BEAKER) (test 13 U/L 6-55 Specim en slightly code = 347) hemolyzed EGFR (BEAKER) (test code = 17 mL/min/1.73 sq m E STIMATED GFR IS NOT 1092) ACCURATE CREA TININE CLEARANCE IN PRE DICTING GLOMERULAR FILTR ATION RATE. ESTIMATED GFR IS NOT APPLICABLE F OR DIALYSIS PATIENT S. [id number] 01:49:00 Test Item Value Reference Range Comments ACTIVATED CLOTTING TIME 142 sec Referenc e Range: 74-137 (BEAKER) (test code = 441) marce ds, Baseline/TESTED AT [facility] [address] [place] [address] B-TYPE NATRIURETIC FACTOR (BNP)2018-11-13 01:42:00 Test Item Value Reference Range Comments B-TYPE NATRIURETIC PEPTIDE (BEAKER) (test code = 1151 pg/mL 0-100 700) URINALYSIS W/ [id number] 01:40:00 Test Item Value Reference Range Comments COLOR (BEAKER) (test code = 470) Light Yellow CLARITY (BEAKER) (test code = 469) Clear SPECIFIC GRAVITY UA (BEAKER) (test code = 468) 1.023 1 .001-1.035 PH UA (BEAKER) (test code = 467) 5.5 5.0-8.0 PROTEIN UA (BEAKER) (test code = 464) 20 mg/dL Negative GLUCOSE UA (BEAKER) (test code = 365) >1000 mg/dL Negative KETONES UA (BEAKER) (test code = 371) 10 mg/dL Negative BILIRUBIN UA (BEAKER) (test code = 462) Negative Negative BLOOD UA (BEAKER) (test code = 461) Small Negative NITRITE UA (BEAKER) (test code = 465) Negative Negative LEUKOCYTE ESTERASE UA (BEAKER) (test code = Negative Nega tive 466) UROBILINOGEN UA (BEAKER) (test code = 463) 0.2 mg/dL 0.2-1 .0 RBC UA (BEAKER) (test code = 519) 2 /HPF WBC UA (BEAKER) (test code = 520) 1 /HPF BACTERIA (BEAKER) (test code = 517) Rare SQUAMOUS EPITHELIAL (BEAKER) (test code = 516) 2 /HPF SOURCE(BEAKER) (test code = 2795) [id number] 01:36:00 Test Item Value Reference Range Comments MAGNESIUM (BEAKER) (test code = 2.0 mg/dL 1.6-2.6 Specimen slightly hemolyzed 627) [id number] 01:36:00 Test Item Value Reference Range Comments PHOSPHORUS (BEAKER) (test code 4.4 mg/dL 2.3-4.7 S pecimen slightly hemolyzed = 604) CBC W/PLT COUNT & AUTO [id number] 01:24:00 Test Item Value Reference Range Comments WHITE BLOOD CELL COUNT (BEAKER) (test code = 7.4 K/ L 3.5 -10.5 775) RED BLOOD CELL COUNT (BEAKER) (test code = 761) 4.21 M/ L 3.93-5.22 HEMOGLOBIN (BEAKER) (test code = 410) 12.4 GM/DL 11.2-15.7 HEMATOCRIT (BEAKER) (test code = 411) 38.7 % 34.1-44.9 MEAN CORPUSCULAR VOLUME (BEAKER) (test code = 91.9 fL 79 .4-94.8 753) MEAN CORPUSCULAR HEMOGLOBIN (BEAKER) (test code 29.5 pg 25.6-32.2 = 751) MEAN CORPUSCULAR HEMOGLOBIN CONC (BEAKER) (test 32.0 GM/DL 32.2-35.5 code = 752) RED CELL DISTRIBUTION WIDTH (BEAKER) (test code 14.6 % 11.7-14.4 = 412) PLATELET COUNT (BEAKER) (test code = 756) 174 K/CU MM 150-45 0 MEAN PLATELET VOLUME (BEAKER) (test code = 754) 11.0 fL 9.4-12.3 NUCLEATED RED BLOOD CELLS (BEAKER) (test code = 0 /100 WBC 0-0 413) NEUTROPHILS RELATIVE PERCENT (BEAKER) (test code 87 % = 429) LYMPHOCYTES RELATIVE PERCENT (BEAKER) (test code 12 % = 430) MONOCYTES RELATIVE PERCENT (BEAKER) (test code = 1 % 431) EOSINOPHILS RELATIVE PERCENT (BEAKER) (test code 0 % = 432) BASOPHILS RELATIVE PERCENT (BEAKER) (test code = 0 % 437) NEUTROPHILS ABSOLUTE COUNT (BEAKER) (test code = 6.42 K/ L 1.56-6.13 670) LYMPHOCYTES ABSOLUTE COUNT (BEAKER) (test code = 0.85 K/ L 1.18-3.74 414) MONOCYTES ABSOLUTE COUNT (BEAKER) (test code = 0.04 K/ L 0 .24-0.36 415) EOSINOPHILS ABSOLUTE COUNT (BEAKER) (test code = 0.00 K/ L 0.04-0.36 416) BASOPHILS ABSOLUTE COUNT (BEAKER) (test code = 0.01 K/ L 0 .01-0.08 417) IMMATURE GRANULOCYTES-RELATIVE PERCENT (BEAKER) 1 % 0-1 (test code = 2801) CALCIUM, [id number] 01:16:00 Test Item Value Reference Range Comments CALCIUM IONIZED (BEAKER) (test code = 698) 1.10 mmol/L 1.12- 1.27 PH, BLOOD (BEAKER) (test code = 1810) 7.32 [id number] 23:34:00 Test Item Value Reference Range Comments ACTIVATED CLOTTING TIME 164 sec Referenc e Range: 74-137 (BEAKER) (test code = 441) secon ds, Baseline/TESTED AT [address] [address] [id number] 21:52:00 Test Item Value Reference Range Comments ACTIVATED CLOTTING TIME 191 sec Referenc e Range: 74-137 (BEAKER) (test code = 441) secon ds, Baseline/TESTED AT [address] [address] POCT-GLUCOSE [id number] 21:33:00 Test Item Value Reference Range Comments POC-GLUCOSE METER (BEAKER) 294 mg/dL 70-110 TESTE D AT [address] (test code = 1538) [facility] [address] C. DIFFICILE GDH [id number] 20:08:00 Test Item Value Reference Range Comments CDT TOXIN (test code = Negative Negative [id number]) CDT GDH ANTIGEN (test code = Positive Negative C. difficile present but toxin [id number]) not detected. I ndicates colonization wit h non-toxigenic strain or level of toxin below detectable level s. No need for enteric isolatio n. Treatment is rarely needed (o nly when strong clinical suspici on for Clostridium diff icile infection) Testing performed by [employer] Rapid Cassette Assay. For GDH, published sensitivity of the assay is 98.7% compared to cytotoxicity testing. For Toxin AB, published sensitivity is 87.8% and specificity 99.4% compared to cytotoxicity testing.Verification of kit performance was done by the [facility] Microbiology [facility] prior to clinical use.[id number] 17:58:00 Test Item Value Reference Range Comments ACTIVATED CLOTTING TIME 290 sec Referenc e Range: 74-137 (BEAKER) (test code = 441) marce chase, Baseline/TESTED AT [place] [address] [id number] 16:57:00 Test Item Value Reference Range Comments ACTIVATED CLOTTING TIME 263 sec Referenc e Range: 74-137 (BEAKER) (test code = 441) marce chase, Baseline/TESTED AT [place] [address] [id number] 16:20:00 Test Item Value Reference Range Comments ACTIVATED CLOTTING TIME 252 sec Referenc e Range: 74-137 (BEAKER) (test code = 441) marce chase, Baseline/TESTED AT [place] [address] PET, CARDIAC PERFUSION MULTIPLE STUDIES, REST AND [id number] 15:26:00 Reason for exam:->eval chest pain, ischemiaFINAL REPORT PROCEDURE: MYOCARDIAL PERFUSION PET IMAGING (Rest/Stress)CPT CODE: 63941 INDICATION: Evaluate extent of known CAD, chest discomfort, CHF, obesity CARDIOVASCULAR PROFILE:CAD History: Known CAD status post PCI, ischemic cardiomyopathySymptoms: Chest discomfort, dyspneaRisk Factors: Known CAD, diabetes, hypertension, hyperlipidemia, obesityBMI: 30Medications: Aspirin, Lipitor, carvedilol, Plavix, heparin, nitroglycerin STRESS PROTOCOL:Pharmacologic stress was achieved with a 10-second intravenous [...] the remaining segments show moderate hypokinesis. (LVEF 34%).LV Volume: Mildly increased.RV Volume: Normal. STRESS FINDINGS:HR: 105/min (73% of MPHR)BP: 170/55 mmHgPrelim. EKG: Persistent less than [address] depression in inferolateral leads, unchanged from rest.Symptoms: Chest discomfort, nausea, fatigue (Treatment was [id number] IV).Perfusion: There is an absence of perfusionin the apical inferior segment. There is a marked severity perfusion defect of the basal to apical anterior and apical septal segments. There is a moderate severity perfusion defect of the basal to midinferior segments, basal to mid inferolateral, and apical lateral segments.Wall Motion: Severe basalto apical anterior hypokinesis, the remaining segments show moderate hypokinesis. (LVEF 37%).LV Volume: Not significantly changed from rest. [...] MDReport Verified Date/Time: 11/12/2018 15:26:40 Reading Location: [address] Reading Room APTT 2018-11-12 10:22:00 Test Item Value Reference Range Comments PARTIAL THROMBOPLASTIN TIME (BEAKER) (test code 90.3 seconds 22.5-36.0 = 760) HEMOGLOBIN [id number] 09:39:00 Test Item Value Reference Range Comments HEMOGLOBIN A1C (BEAKER) (test code = 368) 12.0 % 4.3-6. 1 POCT-GLUCOSE [id number] 08:37:00 Test Item Value Reference Range Comments POC-GLUCOSE METER ([employer]) 281 mg/dL 70-110 TESTE D AT [facility] [address] [facility] (test code = 1538) [facility] 77 030 [id number] 05:54:00 Test Item Value Reference Range Comments PARTIAL THROMBOPLASTIN TIME (BEAKER) (test 135.4 seconds 22.5- 36.0 code = 760) CALCIUM, [id number] 05:31:00 Test Item Value Reference Range Comments CALCIUM IONIZED (BEAKER) (test code = 698) 1.10 mmol/L 1.12- 1.27 PH, BLOOD (BEAKER) (test code = 1810) 7.39 COMPREHENSIVE METABOLIC [id number] 04:56:00 Test Item Value Reference Range Comments TOTAL PROTEIN (BEAKER) 6.2 gm/dL 6.0-8.3 Specimen slightly (test code = 770) hemolyzed ALBUMIN (BEAKER) (test 3.3 g/dL 3.5-5.0 Specimen slightly code = 1145) hemolyzed ALKALINE PHOSPHATASE 98 U/L 40-150 (BEAKER) (test code = 346) BILIRUBIN TOTAL (BEAKER) 0.5 mg/dL 0.2-1.2 Specime n slightly (test code = 377) hemolyzed SODIUM (BEAKER) (test code 134 meq/L 136-145 = 381) POTASSIUM (BEAKER) (test 3.4 meq/L 3.5-5.1 Specime n slightly code = 379) hemolyzed CHLORIDE (BEAKER) (test 97 meq/L 98-107 code = 382) CO2 (BEAKER) (test code = 25 meq/L 22-29 355) BLOOD UREA NITROGEN 80 mg/dL 7-21 (BEAKER) (test code = 354) CREATININE (BEAKER) (test 3.15 mg/dL 0.57-1.25 Specim en slightly code = 358) hemolyzed GLUCOSE RANDOM (BEAKER) 221 mg/dL 70-105 (test code = 652) CALCIUM (BEAKER) (test 8.9 mg/dL 8.4-10.2 code = 697) AST (SGOT) (BEAKER) (test 17 U/L 5-34 Specim en slightly code = 353) hemolyzed ALT (SGPT) (BEAKER) (test 10 U/L 6-55 Specim en slightly code = 347) hemolyzed EGFR (BEAKER) (test code = 14 mL/min/1.73 sq m E STIMATED GFR IS NOT 1092) ACCURATE CREA TININE CLEARANCE IN PRE DICTING GLOMERULAR FILTR ATION RATE. ESTIMATED GFR IS NOT APPLICABLE F OR DIALYSIS PATIENT S. [id number] 04:52:00 Test Item Value Reference Range Comments MAGNESIUM (BEAKER) (test code = 2.0 mg/dL 1.6-2.6 Specimen slightly hemolyzed 627) [id number] 04:52:00 Test Item Value Reference Range Comments PHOSPHORUS (BEAKER) (test code 3.5 mg/dL 2.3-4.7 S pecimen slightly hemolyzed = 604) LIPID [id number] 04:52:00 Test Item Value Reference Range Comments TRIGLYCERIDES (BEAKER) (test 133 mg/dL Spe cimen slightly hemolyzed code = 540) CHOLESTEROL (BEAKER) (test code 117 mg/dL Specimen slightly hemolyzed = 631) HDL CHOLESTEROL (BEAKER) (test 33 mg/dL code = 976) LDL CHOLESTEROL CALCULATED 57 mg/dL (BEAKER) (test code = 633) Triglyceride Reference Range: Low Risk <150 Borderline 150-199 High Risk 200-499 Very High Risk >=500Cholesterol Reference Range: Low Risk <200 Borderline 200-239 High Risk >240HDL Cholesterol Reference Range: Low Risk >=60 High Risk <40LDL Cholesterol Reference Range: Optimal <100 Near Optimal 100-129 Borderline 130-159 High 160-189 Very High >=190CBC W/PLT COUNT & AUTO [id number] 04:33:00 Test Item Value Reference Range Comments WHITE BLOOD CELL COUNT (BEAKER) (test code = 8.2 K/ L 3.5 -10.5 775) RED BLOOD CELL COUNT (BEAKER) (test code = 761) 4.23 M/ L 3.93-5.22 HEMOGLOBIN (BEAKER) (test code = 410) 12.7 GM/DL 11.2-15.7 HEMATOCRIT (BEAKER) (test code = 411) 38.3 % 34.1-44.9 MEAN CORPUSCULAR VOLUME (BEAKER) (test code = 90.5 fL 79 .4-94.8 753) MEAN CORPUSCULAR HEMOGLOBIN (BEAKER) (test code 30.0 pg 25.6-32.2 = 751) MEAN CORPUSCULAR HEMOGLOBIN CONC (BEAKER) (test 33.2 GM/DL 32.2-35.5 code = 752) RED CELL DISTRIBUTION WIDTH (BEAKER) (test code 14.7 % 11.7-14.4 = 412) PLATELET COUNT (BEAKER) (test code = 756) 206 K/CU MM 150-45 0 MEAN PLATELET VOLUME (BEAKER) (test code = 754) 11.0 fL 9.4-12.3 NUCLEATED RED BLOOD CELLS (BEAKER) (test code = 0 /100 WBC 0-0 413) NEUTROPHILS RELATIVE PERCENT (BEAKER) (test code 60 % = 429) LYMPHOCYTES RELATIVE PERCENT (BEAKER) (test code 29 % = 430) MONOCYTES RELATIVE PERCENT (BEAKER) (test code = 8 % 431) EOSINOPHILS RELATIVE PERCENT (BEAKER) (test code 2 % = 432) BASOPHILS RELATIVE PERCENT (BEAKER) (test code = 0 % 437) NEUTROPHILS ABSOLUTE COUNT (BEAKER) (test code = 4.96 K/ L 1.56-6.13 670) LYMPHOCYTES ABSOLUTE COUNT (BEAKER) (test code = 2.35 K/ L 1.18-3.74 414) MONOCYTES ABSOLUTE COUNT (BEAKER) (test code = 0.65 K/ L 0 .24-0.36 415) EOSINOPHILS ABSOLUTE COUNT (BEAKER) (test code = 0.18 K/ L 0.04-0.36 416) BASOPHILS ABSOLUTE COUNT (BEAKER) (test code = 0.03 K/ L 0 .01-0.08 417) IMMATURE GRANULOCYTES-RELATIVE PERCENT (BEAKER) 0 % 0-1 (test code = 2801) [id number] 22:22:00 Test Item Value Reference Range Comments PARTIAL THROMBOPLASTIN TIME (BEAKER) (test code 86.6 seconds 22.5-36.0 = 760) POCT-GLUCOSE [id number] 17:14:00 Test Item Value Reference Range Comments POC-GLUCOSE METER (BEAKER) 158 mg/dL 70-110 TESTE D AT [facility] [address] (test code = 1538) [place] [address] [id number] 15:48:00 Test Item Value Reference Range Comments PARTIAL THROMBOPLASTIN TIME (BEAKER) (test code 64.4 seconds 22.5-36.0 = 760) POCT-GLUCOSE [id number] 12:41:00 Test Item Value Reference Range Comments POC-GLUCOSE METER (BEAKER) 275 mg/dL 70-110 TESTE D AT [facility] [address] (test code = 1538) [facility] [address] RAD, CHEST, 1 VIEW, NON [id number] 09:33:00Reason for exam:->chest painShould this be performed at the bedside?->YesFINAL REPORT Comparison: 08/14/2018 TECHNIQUE: Single view of the chest FINDINGS: Trace bilateral pleural effusions. Lungs otherwise grossly clear. Cardiac silhouette is prominent. Aortic calcifications are seen. No acute skeletal abnormality. Signed: Terry Sauer Verified Date/Time: 11/11/2018 09:33:09 Reading Location: [address] [facility] signed by: TERRY SAUER M.D. on 11/11/2018 09:33 AMTROPONIN I 2018-11-11 09:11:00 Test Item Value Reference Range Comments TROPONIN I (BEAKER) (test code = 397) 0.38 ng/mL 0.00-0.03 Troponin I (TnI) levels [...] acidosis, acute neurological disease, and persistent tachyarrhythmia.POCT-GLUCOSE [id number] 08:57:00 Test Item Value Reference Range Comments POC-GLUCOSE METER (BEAKER) 321 mg/dL 70-110 Notif italo JEREZ MD/TESTED AT [facility] (test code = 1538) [address] [facility] [address] TROPONIN [id number] 08:29:00 Test Item Value Reference Range Comments TROPONIN I (BEAKER) (test code = 397) 0.60 ng/mL 0.00-0.03 Troponin I (TnI) levels [...] acute neurological disease, and persistent tachyarrhythmia.BASIC METABOLIC [id number] 08:26:00 Test Item Value Reference Range Comments SODIUM (BEAKER) (test 136 meq/L 136-145 code = 381) POTASSIUM (BEAKER) (test 3.8 meq/L 3.5-5.1 Specime n slightly code = 379) hemolyzed CHLORIDE (BEAKER) (test 96 meq/L 98-107 code = 382) CO2 (BEAKER) (test code = 30 meq/L 22-29 355) BLOOD UREA NITROGEN 70 mg/dL 7-21 (BEAKER) (test code = 354) CREATININE (BEAKER) (test 3.15 mg/dL 0.57-1.25 Specim en slightly code = 358) hemolyzed GLUCOSE RANDOM (BEAKER) 356 mg/dL 70-105 (test code = 652) CALCIUM (BEAKER) (test 9.5 mg/dL 8.4-10.2 code = 697) EGFR (BEAKER) (test code 14 mL/min/1.73 sq m EST IMATED GFR IS NOT = 1092) ACCURATE CREA TININE CLEARANCE IN PRE DICTING GLOMERULAR FILTR ATION RATE. ESTIMATED GFR IS NOT APPLICABLE F OR DIALYSIS PATIENT S. [id number] 08:22:00 Test Item Value Reference Range Comments MAGNESIUM (BEAKER) (test code = 2.2 mg/dL 1.6-2.6 Specimen slightly hemolyzed 627) HEPATIC FUNCTION [id number] 08:22:00 Test Item Value Reference Range Comments TOTAL PROTEIN (BEAKER) (test 7.3 gm/dL 6.0-8.3 Spe cimen slightly hemolyzed code = 770) ALBUMIN (BEAKER) (test code = 3.9 g/dL 3.5-5.0 Sp ecimen slightly hemolyzed 1145) BILIRUBIN TOTAL (BEAKER) (test 0.5 mg/dL 0.2-1.2 S pecimen slightly hemolyzed code = 377) BILIRUBIN DIRECT (BEAKER) (test 0.2 mg/dL 0.1-0.5 Specimen slightly hemolyzed code = 706) ALKALINE PHOSPHATASE (BEAKER) 129 U/L 40-150 (test code = 346) AST (SGOT) (BEAKER) (test code 18 U/L 5-34 S pecimen slightly hemolyzed = 353) ALT (SGPT) (BEAKER) (test code 11 U/L 6-55 S pecimen slightly hemolyzed = 347) B-TYPE NATRIURETIC FACTOR (BNP)2018-11-11 08:22:00 Test Item Value Reference Range Comments B-TYPE NATRIURETIC PEPTIDE (BEAKER) (test code = 344 pg/mL 0-100 700) CBC W/PLT COUNT & AUTO [id number] 07:04:00 Test Item Value Reference Range Comments WHITE BLOOD CELL COUNT (BEAKER) (test code = 6.0 K/ L 3.5 -10.5 775) RED BLOOD CELL COUNT (BEAKER) (test code = 761) 4.74 M/ L 3.93-5.22 HEMOGLOBIN (BEAKER) (test code = 410) 14.0 GM/DL 11.2-15.7 HEMATOCRIT (BEAKER) (test code = 411) 43.4 % 34.1-44.9 MEAN CORPUSCULAR VOLUME (BEAKER) (test code = 91.6 fL 79 .4-94.8 753) MEAN CORPUSCULAR HEMOGLOBIN (BEAKER) (test code 29.5 pg 25.6-32.2 = 751) MEAN CORPUSCULAR HEMOGLOBIN CONC (BEAKER) (test 32.3 GM/DL 32.2-35.5 code = 752) RED CELL DISTRIBUTION WIDTH (BEAKER) (test code 14.6 % 11.7-14.4 = 412) PLATELET COUNT (BEAKER) (test code = 756) 202 K/CU MM 150-45 0 MEAN PLATELET VOLUME (BEAKER) (test code = 754) 11.3 fL 9.4-12.3 NUCLEATED RED BLOOD CELLS (BEAKER) (test code = 0 /100 WBC 0-0 413) NEUTROPHILS RELATIVE PERCENT (BEAKER) (test code 56 % = 429) LYMPHOCYTES RELATIVE PERCENT (BEAKER) (test code 32 % = 430) MONOCYTES RELATIVE PERCENT (BEAKER) (test code = 9 % 431) EOSINOPHILS RELATIVE PERCENT (BEAKER) (test code 3 % = 432) BASOPHILS RELATIVE PERCENT (BEAKER) (test code = 0 % 437) NEUTROPHILS ABSOLUTE COUNT (BEAKER) (test code = 3.38 K/ L 1.56-6.13 670) LYMPHOCYTES ABSOLUTE COUNT (BEAKER) (test code = 1.90 K/ L 1.18-3.74 414) MONOCYTES ABSOLUTE COUNT (BEAKER) (test code = 0.55 K/ L 0 .24-0.36 415) EOSINOPHILS ABSOLUTE COUNT (BEAKER) (test code = 0.15 K/ L 0.04-0.36 416) BASOPHILS ABSOLUTE COUNT (BEAKER) (test code = 0.02 K/ L 0 .01-0.08 417) IMMATURE GRANULOCYTES-RELATIVE PERCENT (BEAKER) 1 % 0-1 (test code = 2801) TSH/FREE T4 IF [id number] 06:39:00 Test Item Value Reference Range Comments THYROID STIMULATING HORMONE (BEAKER) (test code 1.17 uIU/mL 0.35-4.94 = 772) [id number] 05:38:00 Test Item Value Reference Range Comments PROTIME (BEAKER) (test code = 759) 14.0 seconds 11.9-14.2 INR (BEAKER) (test code = 370) 1.1 <=5.9 PARTIAL THROMBOPLASTIN TIME (BEAKER) (test code 37.2 seconds 22.5-36.0 = 760) Effective 07/18/2018: PT Reference Range ChangeNew: 11.9-14.2 Previous: 11.7- 14.7RECOMMENDED COUMADIN/WARFARIN INR THERAPY RANGESSTANDARD DOSE: 2.0-3.0 Includes: PROPHYLAXIS for venous thrombosis, systemic embolization; TREATMENT for venous thrombosis and/or pulmonary embolus.HIGH RISK: Target INR is2.5-3.5 for patients wiht mechanical heart valves.POCT-GLUCOSE [id number] 12:11:00 Test Item Value Reference Range Comments POC-GLUCOSE METER (BEAKER) 111 mg/dL 70-110 TESTE D AT [facility] [address] (test code = 1538) [place] [address] CBC W/PLT COUNT & AUTO [id number] 10:11:00 Test Item Value Reference Range Comments WHITE BLOOD CELL COUNT 4.7 K/ L 3.5-10.5 (BEAKER) (test code = 775) RED BLOOD CELL COUNT (BEAKER) 3.14 M/ L 3.93-5.22 (test code = 761) HEMOGLOBIN (BEAKER) (test 10.1 GM/DL 11.2-15.7 code = 410) HEMATOCRIT (BEAKER) (test 34.0 % 34.1-44.9 code = 411) MEAN CORPUSCULAR VOLUME 108.3 fL 79.4-94.8 Discorda nt results compared (BEAKER) (test code = 753) to pr evious result; clinical correlation requ ired. MEAN CORPUSCULAR HEMOGLOBIN 32.2 pg 25.6-32.2 (BEAKER) (test code = 751) MEAN CORPUSCULAR HEMOGLOBIN 29.7 GM/DL 32.2-35.5 CONC (BEAKER) (test code = 752) RED CELL DISTRIBUTION WIDTH 18.5 % 11.7-14.4 (BEAKER) (test code = 412) PLATELET COUNT (BEAKER) (test 186 K/CU MM 150-450 code = 756) MEAN PLATELET VOLUME (BEAKER) 9.5 fL 9.4-12.3 (test code = 754) NUCLEATED RED BLOOD CELLS 0 /100 WBC 0-0 (BEAKER) (test code = 413) NEUTROPHILS RELATIVE PERCENT 67 % (BEAKER) (test code = 429) LYMPHOCYTES RELATIVE PERCENT 14 % (BEAKER) (test code = 430) MONOCYTES RELATIVE PERCENT 14 % (BEAKER) (test code = 431) EOSINOPHILS RELATIVE PERCENT 3 % (BEAKER) (test code = 432) BASOPHILS RELATIVE PERCENT 1 % (BEAKER) (test code = 437) NEUTROPHILS ABSOLUTE COUNT 3.16 K/ L 1.56-6.13 (BEAKER) (test code = 670) LYMPHOCYTES ABSOLUTE COUNT 0.67 K/ L 1.18-3.74 (BEAKER) (test code = 414) MONOCYTES ABSOLUTE COUNT 0.65 K/ L 0.24-0.36 (BEAKER) (test code = 415) EOSINOPHILS ABSOLUTE COUNT 0.15 K/ L 0.04-0.36 (BEAKER) (test code = 416) BASOPHILS ABSOLUTE COUNT 0.03 K/ L 0.01-0.08 (BEAKER) (test code = 417) IMMATURE 1 % 0-1 GRANULOCYTES-RELATIVE PERCENT (BEAKER) (test code = 2801) POCT-GLUCOSE [id number] 07:46:00 Test Item Value Reference Range Comments POC-GLUCOSE METER (BEAKER) 79 mg/dL 70-110 TESTE D AT [address] (test code = 1538) [place] [address] BASIC METABOLIC [id number] 06:22:00 Test Item Value Reference Range Comments SODIUM (BEAKER) (test 136 meq/L 136-145 code = 381) POTASSIUM (BEAKER) (test 4.0 meq/L 3.5-5.1 code = 379) CHLORIDE (BEAKER) (test 100 meq/L 98-107 code = 382) CO2 (BEAKER) (test code = 26 meq/L 22-29 355) BLOOD UREA NITROGEN 55 mg/dL 7-21 (BEAKER) (test code = 354) CREATININE (BEAKER) (test 2.87 mg/dL 0.57-1.25 code = 358) GLUCOSE RANDOM (BEAKER) 79 mg/dL 70-105 (test code = 652) CALCIUM (BEAKER) (test 8.6 mg/dL 8.4-10.2 code = 697) EGFR (BEAKER) (test code 16 mL/min/1.73 sq m EST IMATED GFR IS NOT = 1092) ACCURATE CREA TININE CLEARANCE IN PRE DICTING GLOMERULAR FILTR ATION RATE. ESTIMATED GFR IS NOT APPLICABLE F OR DIALYSIS PATIENT S. POCT-GLUCOSE [id number] 20:51:00 Test Item Value Reference Range Comments POC-GLUCOSE METER (BEAKER) 176 mg/dL 70-110 TESTE D AT [address] (test code = 1538) [place] [address] POCT-GLUCOSE [id number] 18:25:00 Test Item Value Reference Range Comments POC-GLUCOSE METER (BEAKER) 84 mg/dL 70-110 TESTE D AT [address] (test code = 1538) [place] [address] POCT-GLUCOSE [id number] 12:54:00 Test Item Value Reference Range Comments POC-GLUCOSE METER (BEAKER) 111 mg/dL 70-110 TESTE D AT [address] (test code = 1538) [place] [address] POCT-GLUCOSE [id number] 08:25:00 Test Item Value Reference Range Comments POC-GLUCOSE METER (BEAKER) 105 mg/dL 70-110 TESTE D AT [address] (test code = 1538) [place] [address] BASIC METABOLIC [id number] 06:26:00 Test Item Value Reference Range Comments SODIUM (BEAKER) (test 137 meq/L 136-145 code = 381) POTASSIUM (BEAKER) (test 3.9 meq/L 3.5-5.1 code = 379) CHLORIDE (BEAKER) (test 100 meq/L 98-107 code = 382) CO2 (BEAKER) (test code = 28 meq/L 22-29 355) BLOOD UREA NITROGEN 53 mg/dL 7-21 (BEAKER) (test code = 354) CREATININE (BEAKER) (test 3.07 mg/dL 0.57-1.25 code = 358) GLUCOSE RANDOM (BEAKER) 71 mg/dL 70-105 (test code = 652) CALCIUM (BEAKER) (test 8.6 mg/dL 8.4-10.2 code = 697) EGFR (BEAKER) (test code 15 mL/min/1.73 sq m EST IMATED GFR IS NOT = 1092) ACCURATE CREA TININE CLEARANCE IN PRE DICTING GLOMERULAR FILTR ATION RATE. ESTIMATED GFR IS NOT APPLICABLE F OR DIALYSIS PATIENT S. POCT-GLUCOSE [id number] 04:25:00 Test Item Value Reference Range Comments POC-GLUCOSE METER (BEAKER) 81 mg/dL 70-110 TESTE D AT [address] (test code = 1538) [place] [address] POCT-GLUCOSE [id number] 21:58:00 Test Item Value Reference Range Comments POC-GLUCOSE METER (BEAKER) 164 mg/dL 70-110 TESTE D AT [address] (test code = 1538) [place] [address] POCT-GLUCOSE [id number] 18:38:00 Test Item Value Reference Range Comments POC-GLUCOSE METER (BEAKER) 98 mg/dL 70-110 TESTE D AT [address] (test code = 1538) [place] [address] POCT-GLUCOSE [id number] 13:14:00 Test Item Value Reference Range Comments POC-GLUCOSE METER (BEAKER) 105 mg/dL 70-110 TESTE D AT [address] (test code = 1538) [place] [address] POCT-GLUCOSE [id number] 08:12:00 Test Item Value Reference Range Comments POC-GLUCOSE METER (BEAKER) 115 mg/dL 70-110 TESTE D AT [address] (test code = 1538) [place] [address] BASIC METABOLIC [id number] 07:37:00 Test Item Value Reference Range Comments SODIUM (BEAKER) (test 136 meq/L 136-145 code = 381) POTASSIUM (BEAKER) (test 3.7 meq/L 3.5-5.1 code = 379) CHLORIDE (BEAKER) (test 98 meq/L 98-107 code = 382) CO2 (BEAKER) (test code = 28 meq/L 22-29 355) BLOOD UREA NITROGEN 54 mg/dL 7-21 (BEAKER) (test code = 354) CREATININE (BEAKER) (test 3.37 mg/dL 0.57-1.25 code = 358) GLUCOSE RANDOM (BEAKER) 85 mg/dL 70-105 (test code = 652) CALCIUM (BEAKER) (test 8.5 mg/dL 8.4-10.2 code = 697) EGFR (BEAKER) (test code 13 mL/min/1.73 sq m EST IMATED GFR IS NOT = 1092) ACCURATE CREA TININE CLEARANCE IN PRE DICTING GLOMERULAR FILTR ATION RATE. ESTIMATED GFR IS NOT APPLICABLE F OR DIALYSIS PATIENT S. POCT-GLUCOSE [id number] 07:22:00 Test Item Value Reference Range Comments POC-GLUCOSE METER (BEAKER) 128 mg/dL 70-110 TESTE D AT [address] (test code = 1538) [place] [address] POCT-GLUCOSE [id number] 04:05:00 Test Item Value Reference Range Comments POC-GLUCOSE METER (BEAKER) 95 mg/dL 70-110 TESTE D AT [address] (test code = 1538) [place] [address] POCT-GLUCOSE [id number] 04:05:00 Test Item Value Reference Range Comments POC-GLUCOSE METER (BEAKER) 68 mg/dL 70-110 TESTE D AT [address] (test code = 1538) [place] [address] POCT-GLUCOSE [id number] 04:05:00 Test Item Value Reference Range Comments POC-GLUCOSE METER (BEAKER) 52 mg/dL 70-110 TESTE D AT [address] (test code = 1538) [place] [address] POCT-GLUCOSE [id number] 22:26:00 Test Item Value Reference Range Comments POC-GLUCOSE METER (BEAKER) 132 mg/dL 70-110 TESTE D AT [address] (test code = 1538) [place] [address] POCT-GLUCOSE [id number] 19:58:00 Test Item Value Reference Range Comments POC-GLUCOSE METER (BEAKER) 134 mg/dL 70-110 TESTE D AT [address] (test code = 1538) [place] [address] POCT-GLUCOSE [id number] 13:11:00 Test Item Value Reference Range Comments POC-GLUCOSE METER (BEAKER) 148 mg/dL 70-110 TESTE D AT [address] (test code = 1538) [place] [address] POCT-GLUCOSE [id number] 12:30:00 Test Item Value Reference Range Comments POC-GLUCOSE METER (BEAKER) 183 mg/dL 70-110 TESTE D AT [address] (test code = 1538) [place] [address] CBC W/PLT COUNT & AUTO [id number] 10:37:00 Test Item Value Reference Range Comments WHITE BLOOD CELL COUNT (BEAKER) (test code = 7.4 K/ L 3.5 -10.5 775) RED BLOOD CELL COUNT (BEAKER) (test code = 761) 3.03 M/ L 3.93-5.22 HEMOGLOBIN (BEAKER) (test code = 410) 9.5 GM/DL 11.2-15.7 HEMATOCRIT (BEAKER) (test code = 411) 31.4 % 34.1-44.9 MEAN CORPUSCULAR VOLUME (BEAKER) (test code = 103.6 fL 79 .4-94.8 753) MEAN CORPUSCULAR HEMOGLOBIN (BEAKER) (test code 31.4 pg 25.6-32.2 = 751) MEAN CORPUSCULAR HEMOGLOBIN CONC (BEAKER) (test 30.3 GM/DL 32.2-35.5 code = 752) RED CELL DISTRIBUTION WIDTH (BEAKER) (test code 18.8 % 11.7-14.4 = 412) PLATELET COUNT (BEAKER) (test code = 756) 205 K/CU MM 150-45 0 MEAN PLATELET VOLUME (BEAKER) (test code = 754) 9.8 fL 9.4-12.3 NUCLEATED RED BLOOD CELLS (BEAKER) (test code = 0 /100 WBC 0-0 413) NEUTROPHILS RELATIVE PERCENT (BEAKER) (test code 70 % = 429) LYMPHOCYTES RELATIVE PERCENT (BEAKER) (test code 11 % = 430) MONOCYTES RELATIVE PERCENT (BEAKER) (test code = 15 % 431) EOSINOPHILS RELATIVE PERCENT (BEAKER) (test code 2 % = 432) BASOPHILS RELATIVE PERCENT (BEAKER) (test code = 0 % 437) NEUTROPHILS ABSOLUTE COUNT (BEAKER) (test code = 5.19 K/ L 1.56-6.13 670) LYMPHOCYTES ABSOLUTE COUNT (BEAKER) (test code = 0.82 K/ L 1.18-3.74 414) MONOCYTES ABSOLUTE COUNT (BEAKER) (test code = 1.13 K/ L 0 .24-0.36 415) EOSINOPHILS ABSOLUTE COUNT (BEAKER) (test code = 0.14 K/ L 0.04-0.36 416) BASOPHILS ABSOLUTE COUNT (BEAKER) (test code = 0.03 K/ L 0 .01-0.08 417) IMMATURE GRANULOCYTES-RELATIVE PERCENT (BEAKER) 1 % 0-1 (test code = 2801) POCT-GLUCOSE [id number] 08:09:00 Test Item Value Reference Range Comments POC-GLUCOSE METER (BEAKER) 99 mg/dL 70-110 TESTE D AT [facility] [address] (test code = 1538) [place] [address] BASIC METABOLIC [id number] 05:41:00 Test Item Value Reference Range Comments SODIUM (BEAKER) (test 136 meq/L 136-145 code = 381) POTASSIUM (BEAKER) (test 4.1 meq/L 3.5-5.1 code = 379) CHLORIDE (BEAKER) (test 99 meq/L 98-107 code = 382) CO2 (BEAKER) (test code = 29 meq/L 22-29 355) BLOOD UREA NITROGEN 46 mg/dL 7-21 (BEAKER) (test code = 354) CREATININE (BEAKER) (test 3.01 mg/dL 0.57-1.25 code = 358) GLUCOSE RANDOM (BEAKER) 107 mg/dL 70-105 (test code = 652) CALCIUM (BEAKER) (test 8.5 mg/dL 8.4-10.2 code = 697) EGFR (BEAKER) (test code 15 mL/min/1.73 sq m EST IMATED GFR IS NOT = 1092) ACCURATE CREA TININE CLEARANCE IN PRE DICTING GLOMERULAR FILTR ATION RATE. ESTIMATED GFR IS NOT APPLICABLE F OR DIALYSIS PATIENT S. POCT-GLUCOSE [id number] 21:42:00 Test Item Value Reference Range Comments POC-GLUCOSE METER (BEAKER) 171 mg/dL 70-110 TESTE D AT [address] (test code = 1538) [place] [address] POCT-GLUCOSE [id number] 18:03:00 Test Item Value Reference Range Comments POC-GLUCOSE METER (BEAKER) 123 mg/dL 70-110 TESTE D AT [address] (test code = 1538) [place] [address] POCT-GLUCOSE [id number] 12:52:00 Test Item Value Reference Range Comments POC-GLUCOSE METER (BEAKER) 167 mg/dL 70-110 TESTE D AT [address] (test code = 1538) [place] [address] POCT-GLUCOSE [id number] 09:05:00 Test Item Value Reference Range Comments POC-GLUCOSE METER (BEAKER) 128 mg/dL 70-110 TESTE D AT [address] (test code = 1538) [place] [address], PELVIS, WO [id number] 08:42:00FINAL REPORT CT pelvis without contrast HISTORY: [...] to patient size, and/or use of iterative r econstruction technique. FINDINGS: The visualized small and large [...] No organized/drainable fluid collection. No findings of underl jessee osteomyelitis. Signed: Lucho Avery MDReport Verified Date/Time: 08/16/2018 08:42:53 Reading Location: [facility] Radiology Reading Room BASIC METABOLIC [id number] 05:58:00 Test Item Value Reference Range Comments SODIUM (BEAKER) (test 137 meq/L 136-145 code = 381) POTASSIUM (BEAKER) (test 4.2 meq/L 3.5-5.1 code = 379) CHLORIDE (BEAKER) (test 100 meq/L 98-107 code = 382) CO2 (BEAKER) (test code = 28 meq/L 22-29 355) BLOOD UREA NITROGEN 48 mg/dL 7-21 (BEAKER) (test code = 354) CREATININE (BEAKER) (test 2.88 mg/dL 0.57-1.25 code = 358) GLUCOSE RANDOM (BEAKER) 115 mg/dL 70-105 (test code = 652) CALCIUM (BEAKER) (test 8.7 mg/dL 8.4-10.2 code = 697) EGFR (BEAKER) (test code 16 mL/min/1.73 sq m EST IMATED GFR IS NOT = 1092) ACCURATE CREA TININE CLEARANCE IN PRE DICTING GLOMERULAR FILTR ATION RATE. ESTIMATED GFR IS NOT APPLICABLE F OR DIALYSIS PATIENT S. POCT-GLUCOSE [id number] 03:05:00 Test Item Value Reference Range Comments POC-GLUCOSE METER (BEAKER) 157 mg/dL 70-110 TESTE D AT [facility] [address] (test code = 1538) [place] [address] POCT-GLUCOSE [id number] 20:57:00 Test Item Value Reference Range Comments POC-GLUCOSE METER (BEAKER) 106 mg/dL 70-110 TESTE D AT [address] (test code = 1538) [place] [address] POCT-GLUCOSE [id number] 18:13:00 Test Item Value Reference Range Comments POC-GLUCOSE METER (BEAKER) 237 mg/dL 70-110 TESTE D AT [address] (test code = 1538) [place] [address] POCT-GLUCOSE [id number] 13:47:00 Test Item Value Reference Range Comments POC-GLUCOSE METER (BEAKER) 172 mg/dL 70-110 TESTE D AT [address] (test code = 1538) [place] [address] POCT-GLUCOSE [id number] 08:50:00 Test Item Value Reference Range Comments POC-GLUCOSE METER (BEAKER) 155 mg/dL 70-110 TESTE D AT [address] (test code = 1538) [place] [address] BASIC METABOLIC [id number] 06:36:00 Test Item Value Reference Range Comments SODIUM (BEAKER) (test 134 meq/L 136-145 code = 381) POTASSIUM (BEAKER) (test 3.6 meq/L 3.5-5.1 code = 379) CHLORIDE (BEAKER) (test 100 meq/L 98-107 code = 382) CO2 (BEAKER) (test code = 26 meq/L 22-29 355) BLOOD UREA NITROGEN 47 mg/dL 7-21 (BEAKER) (test code = 354) CREATININE (BEAKER) (test 3.21 mg/dL 0.57-1.25 code = 358) GLUCOSE RANDOM (BEAKER) 139 mg/dL 70-105 (test code = 652) CALCIUM (BEAKER) (test 8.3 mg/dL 8.4-10.2 code = 697) EGFR (BEAKER) (test code 14 mL/min/1.73 sq m EST IMATED GFR IS NOT = 1092) ACCURATE CREA TININE CLEARANCE IN PRE DICTING GLOMERULAR FILTR ATION RATE. ESTIMATED GFR IS NOT APPLICABLE F OR DIALYSIS PATIENT S. POCT-GLUCOSE [id number] 22:53:00 Test Item Value Reference Range Comments POC-GLUCOSE METER (BEAKER) 231 mg/dL 70-110 TESTE D AT [facility] [address] (test code = 1538) [place] [address] POCT-GLUCOSE [id number] 17:51:00 Test Item Value Reference Range Comments POC-GLUCOSE METER (BEAKER) 169 mg/dL 70-110 TESTE D AT [facility] [address] (test code = 1538) [place] [address] RESPIRATORY PANEL [id number] 15:45:00 Test Item Value Reference Range Comments HUMAN METAPNEUMOVIRUS (BEAKER) (test Not detected Not detecte d, Equivocal code = 2683) RHINOVIRUS (BEAKER) (test code = 2684) Not detected Not detec elva, Equivocal INFLUENZA A (BEAKER) (test code = 2685) Not detected Not dete cted, Equivocal INFLUENZA A (NO SUBTYPE) (test code = Not detect ed, Equivocal 3606) INFLUENZA A SUBTYPE H1 (BEAKER) (test Not detect ed, Equivocal code = 2686) INFLUENZA A SUBTYPE H3 (BEAKER) (test Not detect ed, Equivocal code = 2687) INFLUENZA A SUBTYPE H1-2009 (BEAKER) Not detecte d, Equivocal (test code = 3198) INFLUENZA B (BEAKER) (test code = 2688) Not detected Not dete cted, Equivocal RESPIRATORY SYNCYTIAL VIRUS (BEAKER) Not detected Not detecte d, Equivocal (test code = 3199) PARAINFLUENZA VIRUS 1 (BEAKER) (test Not detected Not detecte d, Equivocal code = 2691) PARAINFLUENZA VIRUS 2 (BEAKER) (test Not detected Not detecte d, Equivocal code = 2692) PARAINFLUENZA VIRUS 3 (BEAKER) (test Not detected Not detecte d, Equivocal code = 2693) PARAINFLUENZA VIRUS 4 (BEAKER) (test Not detected Not detecte d, Equivocal code = 3200) ADENOVIRUS (BEAKER) (test code = 2694) Not detected Not detec elva, Equivocal CORONAVIRUS 229E (BEAKER) (test code = Not detected Not detec elva, Equivocal 3201) CORONAVIRUS HKU1 (BEAKER) (test code = Not detected Not detec elva, Equivocal 3202) CORONAVIRUS NL63 (BEAKER) (test code = Not detected Not detec elva, Equivocal 3203) CORONAVIRUS OC43 (BEAKER) (test code = Not detected Not detec elva, Equivocal 3204) BORDETELLA PERTUSSIS (BEAKER) (test Not detected Not detected , Equivocal code = 3205) CHLAMYDOPHILA PNEUMONIAE (BEAKER) (test Not detected Not dete cted, Equivocal code = 3206) MYCOPLASMA PNEUMONIAE (BEAKER) (test Not detected Not detecte d, Equivocal code = 3207) Other viruses and bacteria not targeted by this PCR panel cannot be excluded; therefore clinical correlation and follow up of serology, culture results, and other molecular studies is required. The results are not intended to be used as the sole means for clinical diagnosis or patient management decisions. This sample was tested at the [facility]ostics [facility] using the ImpulsonicArray Respiratory Panel. It is FDA cleared and has been verified and approved by the [facility] for clinical use on nasopharyngeal swab specimens.The performance of the FilmArrayRP has not been established in individuals who received influenza vaccine. Recent administration ofa nasal influenza vaccine may cause false positive results for Influenza A and/orInfluenza B.URINALYSIS W/ REFLEX URINE [id number] 12:32:00 Test Item Value Reference Range Comments COLOR (BEAKER) (test code = 470) Light Yellow CLARITY (BEAKER) (test code = 469) Hazy SPECIFIC GRAVITY UA (BEAKER) (test code = 468) 1.009 1 .001-1.035 PH UA (BEAKER) (test code = 467) 6.0 5.0-8.0 PROTEIN UA (BEAKER) (test code = 464) 30 mg/dL Negative GLUCOSE UA (BEAKER) (test code = 365) Negative Negative KETONES UA (BEAKER) (test code = 371) Negative Negative BILIRUBIN UA (BEAKER) (test code = 462) Negative Negative BLOOD UA (BEAKER) (test code = 461) Small Negative NITRITE UA (BEAKER) (test code = 465) Negative Negative LEUKOCYTE ESTERASE UA (BEAKER) (test code = Large Nega tive 466) UROBILINOGEN UA (BEAKER) (test code = 463) 0.2 mg/dL 0.2-1 .0 RBC UA (BEAKER) (test code = 519) 0 /HPF WBC UA (BEAKER) (test code = 520) > /HPF BACTERIA (BEAKER) (test code = 517) Many SQUAMOUS EPITHELIAL (BEAKER) (test code = 516) < /HPF RENAL EPITHELIAL (BEAKER) (test code = 1575) 15 /HPF WBC CASTS (BEAKER) (test code = 1578) 14 /LPF SOURCE(BEAKER) (test code = 2795) POCT-GLUCOSE [id number] 12:29:00 Test Item Value Reference Range Comments POC-GLUCOSE METER (BEAKER) 222 mg/dL 70-110 TESTE D AT [facility] [address] (test code = 1538) [place] [address] CBC W/PLT COUNT & AUTO [id number] 10:12:00 Test Item Value Reference Range Comments WHITE BLOOD CELL COUNT (BEAKER) (test code = 11.6 K/ L 3.5 -10.5 775) RED BLOOD CELL COUNT (BEAKER) (test code = 761) 2.77 M/ L 3.93-5.22 HEMOGLOBIN (BEAKER) (test code = 410) 8.7 GM/DL 11.2-15.7 HEMATOCRIT (BEAKER) (test code = 411) 27.2 % 34.1-44.9 MEAN CORPUSCULAR VOLUME (BEAKER) (test code = 98.2 fL 79 .4-94.8 753) MEAN CORPUSCULAR HEMOGLOBIN (BEAKER) (test code 31.4 pg 25.6-32.2 = 751) MEAN CORPUSCULAR HEMOGLOBIN CONC (BEAKER) (test 32.0 GM/DL 32.2-35.5 code = 752) RED CELL DISTRIBUTION WIDTH (BEAKER) (test code 17.4 % 11.7-14.4 = 412) PLATELET COUNT (BEAKER) (test code = 756) 209 K/CU MM 150-45 0 MEAN PLATELET VOLUME (BEAKER) (test code = 754) 10.2 fL 9.4-12.3 NUCLEATED RED BLOOD CELLS (BEAKER) (test code = 1 /100 WBC 0-0 413) (CELLAVISION MANUAL DIFF)2018-08-14 10:12:00 Test Item Value Reference Range Comments NEUTROPHILS - REL (CELLAVISION)(BEAKER) (test 86 % code = 2816) LYMPHOCYTES - REL (CELLAVISION)(BEAKER) (test 4 % code = 2817) MONOCYTES - REL (CELLAVISION)(BEAKER) (test code 5 % = 2818) EOSINOPHILS - REL (CELLAVISION)(BEAKER) (test 2 % code = 2819) METAMYELOCYTES - REL (CELLAVISION)(BEAKER) (test 2 % 0-0 code = 2821) MYELOCYTES - REL (CELLAVISION)(BEAKER) (test code 1 % 0-0 = 2822) NEUTROPHILS - ABS (CELLAVISION)(BEAKER) (test 9.98 K/ul 1. 56-6.13 code = 2830) LYMPHOCYTES - ABS (CELLAVISION)(BEAKER) (test 0.46 K/ul 1. 18-3.74 code = 2831) MONOCYTES - ABS (CELLAVISION)(BEAKER) (test code 0.58 K/uL 0.24-0.36 = 2832) EOSINOPHILS - ABS (CELLAVISION)(BEAKER) (test 0.23 K/uL 0. 04-0.36 code = 2834) METAMYELOCYTES - ABS (CELLAVISION)(BEAKER) (test 0.23 K/uL 0.00-0.00 code = 2836) MYELOCYTES-ABS (CELLAVISION)(BEAKER) (test code = 0.12 K/uL 0.00-0.00 2837) TOTAL COUNTED (BEAKER) (test code = 1351) 100 MANUAL NRBC PER 100 CELLS (BEAKER) (test code = 1 /100 WBC 0-0 1353) WBC MORPHOLOGY (BEAKER) (test code = 487) Normal PLT MORPHOLOGY (BEAKER) (test code = 486) Normal POLYCHROMATOPHILLIC RBCS(BEAKER) (test code = 1+ few 478) HYPOCHROMIA (BEAKER) (test code = 963) 1+ few ARTIFACT (CELLAVISION)(BEAKER) (test code = 3432) Present PLATELET CONCENTRATION (CELLAVISION)(BEAKER) Adequate (test code = 3438) Received comment: User comments: Slide comments:RAD, CHEST, 1 VIEW, NON DEPT 2018-08-14 09:50:00Reason for exam:->coughShould this be performed at the bedside?->YesFINAL REPORT CLINICAL HISTORY: cough TECHNIQUE: 1 view of the chest. COMPARISON: 08/12/2018 IMPRESSION: Mild lung base pleural-parenchymal opacity is again seen. There is minimalright lung base opacity and blunting of the right costophrenic angle. The cardiomediastinal silhouette is magnified by technique. Cervical fusion hardware is partially imaged. Signed: Su Ledesma MDReport Verified Date/Time: 08/14/2018 09:50:21 Reading Location: [facility] Reading Room POCT-GLUCOSE [id number] 08:20:00 Test Item Value Reference Range Comments POC-GLUCOSE METER (BEAKER) 126 mg/dL 70-110 TESTE D AT [address] (test code = 1538) [facility] [address] COMPREHENSIVE METABOLIC [id number] 07:13:00 Test Item Value Reference Range Comments TOTAL PROTEIN (BEAKER) 5.5 gm/dL 6.0-8.3 (test code = 770) ALBUMIN (BEAKER) (test 3.1 g/dL 3.5-5.0 code = 1145) ALKALINE PHOSPHATASE 67 U/L 40-150 (BEAKER) (test code = 346) BILIRUBIN TOTAL (BEAKER) 0.6 mg/dL 0.2-1.2 (test code = 377) SODIUM (BEAKER) (test code 135 meq/L 136-145 = 381) POTASSIUM (BEAKER) (test 3.8 meq/L 3.5-5.1 code = 379) CHLORIDE (BEAKER) (test 99 meq/L 98-107 code = 382) CO2 (BEAKER) (test code = 27 meq/L 22-29 355) BLOOD UREA NITROGEN 45 mg/dL 7-21 (BEAKER) (test code = 354) CREATININE (BEAKER) (test 3.56 mg/dL 0.57-1.25 code = 358) GLUCOSE RANDOM (BEAKER) 116 mg/dL 70-105 (test code = 652) CALCIUM (BEAKER) (test 8.5 mg/dL 8.4-10.2 code = 697) AST (SGOT) (BEAKER) (test 30 U/L 5-34 code = 353) ALT (SGPT) (BEAKER) (test 18 U/L 6-55 code = 347) EGFR (BEAKER) (test code = 12 mL/min/1.73 sq m E STIMATED GFR IS NOT 1092) ACCURATE CREA TININE CLEARANCE IN PRE DICTING GLOMERULAR FILTR ATION RATE. ESTIMATED GFR IS NOT APPLICABLE F OR DIALYSIS PATIENT S. [id number] 06:59:00 Test Item Value Reference Range Comments PHOSPHORUS (BEAKER) (test code = 604) 2.3 mg/dL 2.3-4.7 [id number] 06:59:00 Test Item Value Reference Range Comments MAGNESIUM (BEAKER) (test code = 627) 2.0 mg/dL 1.6-2.6 CALCIUM, [id number] 06:47:00 Test Item Value Reference Range Comments CALCIUM IONIZED (BEAKER) (test code = 698) 1.04 mmol/L 1.12- 1.27 PH, BLOOD (BEAKER) (test code = 1810) 7.38 POCT-GLUCOSE [id number] 23:29:00 Test Item Value Reference Range Comments POC-GLUCOSE METER (BEAKER) 196 mg/dL 70-110 TESTE D AT [address] (test code = 1538) [place] [address] POCT-GLUCOSE [id number] 17:42:00 Test Item Value Reference Range Comments POC-GLUCOSE METER (BEAKER) 179 mg/dL 70-110 TESTE D AT [address] (test code = 1538) [place] [address] POCT-GLUCOSE [id number] 12:19:00 Test Item Value Reference Range Comments POC-GLUCOSE METER (BEAKER) 189 mg/dL 70-110 TESTE D AT [address] (test code = 1538) [place] [address] POCT-GLUCOSE [id number] 08:34:00 Test Item Value Reference Range Comments POC-GLUCOSE METER (BEAKER) 119 mg/dL 70-110 TESTE D AT [address] (test code = 1538) [facility] [address] COMPREHENSIVE METABOLIC [id number] 02:54:00 Test Item Value Reference Range Comments TOTAL PROTEIN (BEAKER) 5.8 gm/dL 6.0-8.3 (test code = 770) ALBUMIN (BEAKER) (test 3.2 g/dL 3.5-5.0 code = 1145) ALKALINE PHOSPHATASE 65 U/L 40-150 (BEAKER) (test code = 346) BILIRUBIN TOTAL (BEAKER) 0.8 mg/dL 0.2-1.2 (test code = 377) SODIUM (BEAKER) (test code 134 meq/L 136-145 = 381) POTASSIUM (BEAKER) (test 3.6 meq/L 3.5-5.1 code = 379) CHLORIDE (BEAKER) (test 100 meq/L 98-107 code = 382) CO2 (BEAKER) (test code = 25 meq/L 22-29 355) BLOOD UREA NITROGEN 43 mg/dL 7-21 (BEAKER) (test code = 354) CREATININE (BEAKER) (test 3.41 mg/dL 0.57-1.25 code = 358) GLUCOSE RANDOM (BEAKER) 90 mg/dL 70-105 (test code = 652) CALCIUM (BEAKER) (test 8.4 mg/dL 8.4-10.2 code = 697) AST (SGOT) (BEAKER) (test 25 U/L 5-34 code = 353) ALT (SGPT) (BEAKER) (test 16 U/L 6-55 code = 347) EGFR (BEAKER) (test code = 13 mL/min/1.73 sq m E STIMATED GFR IS NOT 1092) ACCURATE CREA TININE CLEARANCE IN PRE DICTING GLOMERULAR FILTR ATION RATE. ESTIMATED GFR IS NOT APPLICABLE F OR DIALYSIS PATIENT S. [id number] 02:48:00 Test Item Value Reference Range Comments PHOSPHORUS (BEAKER) (test code = 604) 2.2 mg/dL 2.3-4.7 [id number] 02:48:00 Test Item Value Reference Range Comments MAGNESIUM (BEAKER) (test code = 627) 1.5 mg/dL 1.6-2.6 CALCIUM, [id number] 02:32:00 Test Item Value Reference Range Comments CALCIUM IONIZED (BEAKER) (test code = 698) 0.93 mmol/L 1.12- 1.27 PH, BLOOD (BEAKER) (test code = 1810) 7.53 CBC W/PLT COUNT & AUTO [id number] 02:31:00 Test Item Value Reference Range Comments WHITE BLOOD CELL COUNT (BEAKER) (test code = 12.6 K/ L 3.5 -10.5 775) RED BLOOD CELL COUNT (BEAKER) (test code = 761) 2.95 M/ L 3.93-5.22 HEMOGLOBIN (BEAKER) (test code = 410) 9.3 GM/DL 11.2-15.7 HEMATOCRIT (BEAKER) (test code = 411) 29.5 % 34.1-44.9 MEAN CORPUSCULAR VOLUME (BEAKER) (test code = 100.0 fL 79 .4-94.8 753) MEAN CORPUSCULAR HEMOGLOBIN (BEAKER) (test code 31.5 pg 25.6-32.2 = 751) MEAN CORPUSCULAR HEMOGLOBIN CONC (BEAKER) (test 31.5 GM/DL 32.2-35.5 code = 752) RED CELL DISTRIBUTION WIDTH (BEAKER) (test code 17.2 % 11.7-14.4 = 412) PLATELET COUNT (BEAKER) (test code = 756) 198 K/CU MM 150-45 0 MEAN PLATELET VOLUME (BEAKER) (test code = 754) 9.9 fL 9.4-12.3 NUCLEATED RED BLOOD CELLS (BEAKER) (test code = 2 /100 WBC 0-0 413) NEUTROPHILS RELATIVE PERCENT (BEAKER) (test code 72 % = 429) LYMPHOCYTES RELATIVE PERCENT (BEAKER) (test code 12 % = 430) MONOCYTES RELATIVE PERCENT (BEAKER) (test code = 12 % 431) EOSINOPHILS RELATIVE PERCENT (BEAKER) (test code 1 % = 432) BASOPHILS RELATIVE PERCENT (BEAKER) (test code = 0 % 437) NEUTROPHILS ABSOLUTE COUNT (BEAKER) (test code = 9.10 K/ L 1.56-6.13 670) LYMPHOCYTES ABSOLUTE COUNT (BEAKER) (test code = 1.47 K/ L 1.18-3.74 414) MONOCYTES ABSOLUTE COUNT (BEAKER) (test code = 1.48 K/ L 0 .24-0.36 415) EOSINOPHILS ABSOLUTE COUNT (BEAKER) (test code = 0.18 K/ L 0.04-0.36 416) BASOPHILS ABSOLUTE COUNT (BEAKER) (test code = 0.04 K/ L 0 .01-0.08 417) IMMATURE GRANULOCYTES-RELATIVE PERCENT (BEAKER) 3 % 0-1 (test code = 2801) POCT-GLUCOSE [id number] 02:17:00 Test Item Value Reference Range Comments POC-GLUCOSE METER (BEAKER) 97 mg/dL 70-110 TESTE D AT [address] (test code = 1538) [place] [address] POCT-GLUCOSE [id number] 21:04:00 Test Item Value Reference Range Comments POC-GLUCOSE METER (BEAKER) 147 mg/dL 70-110 TESTE D AT [address] (test code = 1538) [place] [address] POCT-GLUCOSE [id number] 17:42:00 Test Item Value Reference Range Comments POC-GLUCOSE METER (BEAKER) 172 mg/dL 70-110 TESTE D AT [address] (test code = 1538) [place] [address] POCT-GLUCOSE [id number] 12:05:00 Test Item Value Reference Range Comments POC-GLUCOSE METER (BEAKER) 124 mg/dL 70-110 TESTE D AT [address] (test code = 1538) [place] [address] POCT-GLUCOSE [id number] 07:37:00 Test Item Value Reference Range Comments POC-GLUCOSE METER (BEAKER) 94 mg/dL 70-110 TESTE D AT [address] (test code = 1538) [place] [address] RAD, CHEST, 1 VIEW, NON [id number] 04:50:00Reason for exam:->SOBShould this be performed at [...] Signed: Wilson Valdez MDReport Verified Date/Time: 08/12/2018 04:50:01 Reading Location: [address] Reading Room POCT-GLUCOSE METER 2018-08-12 04:39:00 Test Item Value Reference Range Comments POC-GLUCOSE METER (BEAKER) 107 mg/dL 70-110 TESTE D AT [facility] [address] (test code = 1538) [facility] [address] COMPREHENSIVE METABOLIC [id number] 04:16:00 Test Item Value Reference Range Comments TOTAL PROTEIN (BEAKER) 5.6 gm/dL 6.0-8.3 (test code = 770) ALBUMIN (BEAKER) (test 3.2 g/dL 3.5-5.0 code = 1145) ALKALINE PHOSPHATASE 66 U/L 40-150 (BEAKER) (test code = 346) BILIRUBIN TOTAL (BEAKER) 0.6 mg/dL 0.2-1.2 (test code = 377) SODIUM (BEAKER) (test code 136 meq/L 136-145 = 381) POTASSIUM (BEAKER) (test 4.0 meq/L 3.5-5.1 code = 379) CHLORIDE (BEAKER) (test 102 meq/L 98-107 code = 382) CO2 (BEAKER) (test code = 25 meq/L 22-29 355) BLOOD UREA NITROGEN 38 mg/dL 7-21 (BEAKER) (test code = 354) CREATININE (BEAKER) (test 3.33 mg/dL 0.57-1.25 code = 358) GLUCOSE RANDOM (BEAKER) 105 mg/dL 70-105 (test code = 652) CALCIUM (BEAKER) (test 8.6 mg/dL 8.4-10.2 code = 697) AST (SGOT) (BEAKER) (test 25 U/L 5-34 code = 353) ALT (SGPT) (BEAKER) (test 16 U/L 6-55 code = 347) EGFR (BEAKER) (test code = 13 mL/min/1.73 sq m E STIMATED GFR IS NOT 1092) ACCURATE CREA TININE CLEARANCE IN PRE DICTING GLOMERULAR FILTR ATION RATE. ESTIMATED GFR IS NOT APPLICABLE F OR DIALYSIS PATIENT S. [id number] 04:11:00 Test Item Value Reference Range Comments PHOSPHORUS (BEAKER) (test code = 604) 2.9 mg/dL 2.3-4.7 [id number] 04:11:00 Test Item Value Reference Range Comments MAGNESIUM (BEAKER) (test code = 627) 1.9 mg/dL 1.6-2.6 CBC W/PLT COUNT & AUTO [id number] 03:57:00 Test Item Value Reference Range Comments WHITE BLOOD CELL COUNT (BEAKER) (test code = 12.6 K/ L 3.5 -10.5 775) RED BLOOD CELL COUNT (BEAKER) (test code = 761) 2.87 M/ L 3.93-5.22 HEMOGLOBIN (BEAKER) (test code = 410) 9.0 GM/DL 11.2-15.7 HEMATOCRIT (BEAKER) (test code = 411) 28.6 % 34.1-44.9 MEAN CORPUSCULAR VOLUME (BEAKER) (test code = 99.7 fL 79 .4-94.8 753) MEAN CORPUSCULAR HEMOGLOBIN (BEAKER) (test code 31.4 pg 25.6-32.2 = 751) MEAN CORPUSCULAR HEMOGLOBIN CONC (BEAKER) (test 31.5 GM/DL 32.2-35.5 code = 752) RED CELL DISTRIBUTION WIDTH (BEAKER) (test code 16.1 % 11.7-14.4 = 412) PLATELET COUNT (BEAKER) (test code = 756) 204 K/CU MM 150-45 0 MEAN PLATELET VOLUME (BEAKER) (test code = 754) 10.5 fL 9.4-12.3 NUCLEATED RED BLOOD CELLS (BEAKER) (test code = 5 /100 WBC 0-0 413) NEUTROPHILS RELATIVE PERCENT (BEAKER) (test code 77 % = 429) LYMPHOCYTES RELATIVE PERCENT (BEAKER) (test code 9 % = 430) MONOCYTES RELATIVE PERCENT (BEAKER) (test code = 11 % 431) EOSINOPHILS RELATIVE PERCENT (BEAKER) (test code 2 % = 432) BASOPHILS RELATIVE PERCENT (BEAKER) (test code = 0 % 437) NEUTROPHILS ABSOLUTE COUNT (BEAKER) (test code = 9.64 K/ L 1.56-6.13 670) LYMPHOCYTES ABSOLUTE COUNT (BEAKER) (test code = 1.07 K/ L 1.18-3.74 414) MONOCYTES ABSOLUTE COUNT (BEAKER) (test code = 1.34 K/ L 0 .24-0.36 415) EOSINOPHILS ABSOLUTE COUNT (BEAKER) (test code = 0.19 K/ L 0.04-0.36 416) BASOPHILS ABSOLUTE COUNT (BEAKER) (test code = 0.03 K/ L 0 .01-0.08 417) IMMATURE GRANULOCYTES-RELATIVE PERCENT (BEAKER) 2 % 0-1 (test code = 2801) CALCIUM, [id number] 03:25:00 Test Item Value Reference Range Comments CALCIUM IONIZED (BEAKER) (test code = 698) 1.10 mmol/L 1.12- 1.27 PH, BLOOD (BEAKER) (test code = 1810) 7.43 POCT-GLUCOSE [id number] 00:03:00 Test Item Value Reference Range Comments POC-GLUCOSE METER (BEAKER) 122 mg/dL 70-110 TESTE D AT [address] (test code = 1538) [place] [address] POCT-GLUCOSE [id number] 21:32:00 Test Item Value Reference Range Comments POC-GLUCOSE METER (BEAKER) 104 mg/dL 70-110 TESTE D AT [address] (test code = 1538) [place] [address] POCT-GLUCOSE [id number] 17:51:00 Test Item Value Reference Range Comments POC-GLUCOSE METER (BEAKER) 151 mg/dL 70-110 TESTE D AT [address] (test code = 1538) [place] [address] BASIC METABOLIC [id number] 16:24:00 Test Item Value Reference Range Comments SODIUM (BEAKER) (test 133 meq/L 136-145 code = 381) POTASSIUM (BEAKER) (test 4.1 meq/L 3.5-5.1 Specime n slightly code = 379) hemolyzed CHLORIDE (BEAKER) (test 101 meq/L 98-107 code = 382) CO2 (BEAKER) (test code = 26 meq/L 22-29 355) BLOOD UREA NITROGEN 34 mg/dL 7-21 (BEAKER) (test code = 354) CREATININE (BEAKER) (test 3.12 mg/dL 0.57-1.25 Specim en slightly code = 358) hemolyzed GLUCOSE RANDOM (BEAKER) 167 mg/dL 70-105 (test code = 652) CALCIUM (BEAKER) (test 8.4 mg/dL 8.4-10.2 code = 697) EGFR (BEAKER) (test code 14 mL/min/1.73 sq m EST IMATED GFR IS NOT = 1092) ACCURATE CREA TININE CLEARANCE IN PRE DICTING GLOMERULAR FILTR ATION RATE. ESTIMATED GFR IS NOT APPLICABLE F OR DIALYSIS PATIENT S. [id number] 16:22:00 Test Item Value Reference Range Comments MAGNESIUM (BEAKER) (test code = 1.8 mg/dL 1.6-2.6 Specimen slightly hemolyzed 627) POCT-GLUCOSE [id number] 11:45:00 Test Item Value Reference Range Comments POC-GLUCOSE METER (BEAKER) 141 mg/dL 70-110 TESTE D AT [facility] [address] (test code = 1538) [place] [address] POCT-GLUCOSE [id number] 07:51:00 Test Item Value Reference Range Comments POC-GLUCOSE METER (BEAKER) 112 mg/dL 70-110 TESTE D AT [facility] [address] (test code = 1538) [facility] [address] BASIC METABOLIC [id number] 05:18:00 Test Item Value Reference Range Comments SODIUM (BEAKER) (test 135 meq/L 136-145 code = 381) POTASSIUM (BEAKER) (test 4.7 meq/L 3.5-5.1 Specime n moderately code = 379) hemolyzed CHLORIDE (BEAKER) (test 103 meq/L 98-107 code = 382) CO2 (BEAKER) (test code = 24 meq/L 22-29 355) BLOOD UREA NITROGEN 26 mg/dL 7-21 (BEAKER) (test code = 354) CREATININE (BEAKER) (test 2.47 mg/dL 0.57-1.25 Specim en moderately code = 358) hemolyzed GLUCOSE RANDOM (BEAKER) 101 mg/dL 70-105 (test code = 652) CALCIUM (BEAKER) (test 8.8 mg/dL 8.4-10.2 code = 697) EGFR (BEAKER) (test code 19 mL/min/1.73 sq m EST IMATED GFR IS NOT = 1092) ACCURATE CREA TININE CLEARANCE IN PRE DICTING GLOMERULAR FILTR ATION RATE. ESTIMATED GFR IS NOT APPLICABLE F OR DIALYSIS PATIENT S. [id number] 05:12:00 Test Item Value Reference Range Comments MAGNESIUM (BEAKER) (test code 2.0 mg/dL 1.6-2.6 Sp ecimen moderately hemolyzed = 627) CBC W/PLT COUNT & AUTO [id number] 04:19:00 Test Item Value Reference Range Comments WHITE BLOOD CELL COUNT (BEAKER) (test code = 14.3 K/ L 3.5 -10.5 775) RED BLOOD CELL COUNT (BEAKER) (test code = 761) 3.03 M/ L 3.93-5.22 HEMOGLOBIN (BEAKER) (test code = 410) 9.4 GM/DL 11.2-15.7 HEMATOCRIT (BEAKER) (test code = 411) 29.2 % 34.1-44.9 MEAN CORPUSCULAR VOLUME (BEAKER) (test code = 96.4 fL 79 .4-94.8 753) MEAN CORPUSCULAR HEMOGLOBIN (BEAKER) (test code 31.0 pg 25.6-32.2 = 751) MEAN CORPUSCULAR HEMOGLOBIN CONC (BEAKER) (test 32.2 GM/DL 32.2-35.5 code = 752) RED CELL DISTRIBUTION WIDTH (BEAKER) (test code 15.5 % 11.7-14.4 = 412) PLATELET COUNT (BEAKER) (test code = 756) 209 K/CU MM 150-45 0 MEAN PLATELET VOLUME (BEAKER) (test code = 754) 10.4 fL 9.4-12.3 NUCLEATED RED BLOOD CELLS (BEAKER) (test code = 4 /100 WBC 0-0 413) NEUTROPHILS RELATIVE PERCENT (BEAKER) (test code 80 % = 429) LYMPHOCYTES RELATIVE PERCENT (BEAKER) (test code 6 % = 430) MONOCYTES RELATIVE PERCENT (BEAKER) (test code = 11 % 431) EOSINOPHILS RELATIVE PERCENT (BEAKER) (test code 1 % = 432) BASOPHILS RELATIVE PERCENT (BEAKER) (test code = 0 % 437) NEUTROPHILS ABSOLUTE COUNT (BEAKER) (test code = 11.46 K/ L 1.56-6.13 670) LYMPHOCYTES ABSOLUTE COUNT (BEAKER) (test code = 0.80 K/ L 1.18-3.74 414) MONOCYTES ABSOLUTE COUNT (BEAKER) (test code = 1.60 K/ L 0 .24-0.36 415) EOSINOPHILS ABSOLUTE COUNT (BEAKER) (test code = 0.07 K/ L 0.04-0.36 416) BASOPHILS ABSOLUTE COUNT (BEAKER) (test code = 0.03 K/ L 0 .01-0.08 417) IMMATURE GRANULOCYTES-RELATIVE PERCENT (BEAKER) 3 % 0-1 (test code = 2801) RAD, CHEST, 1 VIEW, NON [id number] 03:48:00Reason for exam:->SOBShould this be performed at the bedside?->YesFINAL REPORT RAD, CHEST, 1 VIEW, NON DEPT INDICATION: SOB COMPARISON: Prior day's exam FINDINGS: Portable frontal view of the chest. IMPRESSION: Support Lines: Stable. Lungs and pleura: Unchanged airspace and pleural opacities. No pneumothorax.Heart and mediastinum: Stable contours. Additional findings: None. Signed: Socorro Méndez Verified Date/Time: 08/11/2018 03:48:09 -GLUCOSE [id number] 23:26:00 Test Item Value Reference Range Comments POC-GLUCOSE METER (BEAKER) 101 mg/dL 70-110 TESTE D AT [facility] [address] (test code = 1538) [place] [address]30 POCT-GLUCOSE [id number] 18:11:00 Test Item Value Reference Range Comments POC-GLUCOSE METER (BEAKER) 171 mg/dL 70-110 TESTE D AT [facility] [address] (test code = 1538) [place] [address]30 BASIC METABOLIC [id number] 16:14:00 Test Item Value Reference Range Comments SODIUM (BEAKER) (test 134 meq/L 136-145 code = 381) POTASSIUM (BEAKER) (test 4.6 meq/L 3.5-5.1 code = 379) CHLORIDE (BEAKER) (test 102 meq/L 98-107 code = 382) CO2 (BEAKER) (test code = 25 meq/L 22-29 355) BLOOD UREA NITROGEN 51 mg/dL 7-21 (BEAKER) (test code = 354) CREATININE (BEAKER) (test 3.89 mg/dL 0.57-1.25 code = 358) GLUCOSE RANDOM (BEAKER) 182 mg/dL 70-105 (test code = 652) CALCIUM (BEAKER) (test 8.2 mg/dL 8.4-10.2 code = 697) EGFR (BEAKER) (test code 11 mL/min/1.73 sq m EST IMATED GFR IS NOT = 1092) ACCURATE CREA TININE CLEARANCE IN PRE DICTING GLOMERULAR FILTR ATION RATE. ESTIMATED GFR IS NOT APPLICABLE F OR DIALYSIS PATIENT S. [id number] 16:07:00 Test Item Value Reference Range Comments MAGNESIUM (BEAKER) (test code = 627) 2.0 mg/dL 1.6-2.6 LACTIC ACID, [id number] 15:23:00 Test Item Value Reference Range Comments LACTATE BLOOD ARTERIAL (2) (BEAKER) (test code = 0.9 mmol/L 0.5-2.2 2874) RAD, CHEST, 1 VIEW, NON [id number] 15:07:00Reason for exam:- >hypoxemiaShould this be performed at the bedside?->YesFINAL REPORT TECHNIQUE: Frontal view of the chest. INDICATION: 78-year-old woman with hypoxemia. COMPARISON: Chest radiograph from earlier same date. FINDINGS: LINES/TUBES: Unchanged. LUNGS/PLEURA: No significant change in bilateral layering pleural effusion and adjacent bibasilar airspace opacities. No pneumothorax. HEART AND MEDIASTINUM: The cardiomediastinal silhouette is un changed. Atherosclerotic calcifications in the thoracic aorta. SOFT TISSUES AND BONES: Unchanged fusion hardware in the cervical spine. Soft tissues are unremarkable. IMPRESSION:No significant change in bilateral pleural effusions and adjacent bibasilar airspace opacities. Signed: Rob Navarro MDReport Verified Date/Time: 08/10/2018 15:07:53 Reading Location: [address] Consult Reading Room BLOOD GAS, [id number] 14:53:00 Test Item Value Reference Range Comments PH ARTERIAL (BEAKER) (test code = 383) 7.44 7.35-7.45 PCO2 ARTERIAL (BEAKER) (test code = 384) 38 mmHg 35-45 PO2 ARTERIAL (BEAKER) (test code = 385) 165 mmHg 80-90 O2 SATURATION ARTERIAL (BEAKER) (test code = 386) 99.2 % 96.0-97.0 HCO3 ARTERIAL (BEAKER) (test code = 388) 26 mmol/L 21-29 BASE EXCESS ARTERIAL (BEAKER) (test code = 387) 1.1 mmol/L -2.0-3.0 PATIENT TEMPERATURE (BEAKER) (test code = 1818) 36.4 C FIO2 (BEAKER) (test code = 1819) 44.0 % POCT-GLUCOSE [id number] 12:20:00 Test Item Value Reference Range Comments POC-GLUCOSE METER (BEAKER) 208 mg/dL 70-110 TESTE D AT [place] [id number] [facility] (test code = 1538) [facility] [address] CBC W/PLT COUNT & AUTO [id number] 08:56:00 Test Item Value Reference Range Comments WHITE BLOOD CELL COUNT (BEAKER) (test code = 12.2 K/ L 3.5 -10.5 775) RED BLOOD CELL COUNT (BEAKER) (test code = 761) 2.87 M/ L 3.93-5.22 HEMOGLOBIN (BEAKER) (test code = 410) 8.8 GM/DL 11.2-15.7 HEMATOCRIT (BEAKER) (test code = 411) 27.4 % 34.1-44.9 MEAN CORPUSCULAR VOLUME (BEAKER) (test code = 95.5 fL 79 .4-94.8 753) MEAN CORPUSCULAR HEMOGLOBIN (BEAKER) (test code 30.7 pg 25.6-32.2 = 751) MEAN CORPUSCULAR HEMOGLOBIN CONC (BEAKER) (test 32.1 GM/DL 32.2-35.5 code = 752) RED CELL DISTRIBUTION WIDTH (BEAKER) (test code 15.1 % 11.7-14.4 = 412) PLATELET COUNT (BEAKER) (test code = 756) 224 K/CU MM 150-45 0 MEAN PLATELET VOLUME (BEAKER) (test code = 754) 9.8 fL 9.4-12.3 NUCLEATED RED BLOOD CELLS (BEAKER) (test code = 1 /100 WBC 0-0 413) (CELLAVISION MANUAL DIFF)2018-08-10 08:56:00 Test Item Value Reference Range Comments NEUTROPHILS - REL (CELLAVISION)(BEAKER) (test 80 % code = 2816) LYMPHOCYTES - REL (CELLAVISION)(BEAKER) (test 7 % code = 2817) MONOCYTES - REL (CELLAVISION)(BEAKER) (test code 10 % = 2818) EOSINOPHILS - REL (CELLAVISION)(BEAKER) (test 2 % code = 2819) NEUTROPHILS - ABS (CELLAVISION)(BEAKER) (test 9.76 K/ul 1. 56-6.13 code = 2830) LYMPHOCYTES - ABS (CELLAVISION)(BEAKER) (test 0.85 K/ul 1. 18-3.74 code = 2831) MONOCYTES - ABS (CELLAVISION)(BEAKER) (test code 1.22 K/uL 0.24-0.36 = 2832) EOSINOPHILS - ABS (CELLAVISION)(BEAKER) (test 0.24 K/uL 0. 04-0.36 code = 2834) TOTAL COUNTED (BEAKER) (test code = 1351) 100 MANUAL NRBC PER 100 CELLS (BEAKER) (test code = 2 /100 WBC 0-0 1353) PLT MORPHOLOGY (BEAKER) (test code = 486) Normal TOXIC GRANULATION (BEAKER) (test code = 771) Present POLYCHROMATOPHILLIC RBCS(BEAKER) (test code = 1+ few 478) ARTIFACT (CELLAVISION)(BEAKER) (test code = 3432) Present PLATELET CONCENTRATION (CELLAVISION)(BEAKER) Adequate (test code = 3438) Received comment: User comments: Slide comments:RAD, CHEST, 1 VIEW, NON DEPT 2018-08-10 08:03:00Reason for exam:->SOBShould this be performed at [...] no significant change since 08/09/2018. Signed: Rob Navarroeport Verified Date/Time: 08/10/2018 08:03:28 Reading Location: [facility]iology Reading Room POCT- GLUCOSE [id number] 07:51:00 Test Item Value Reference Range Comments POC-GLUCOSE METER (BEAKER) 129 mg/dL 70-110 TESTE D AT [address] (test code = 1538) [place] [address] POCT-GLUCOSE [id number] 06:38:00 Test Item Value Reference Range Comments POC-GLUCOSE METER (BEAKER) 193 mg/dL 70-110 TESTE D AT [address] (test code = 1538) [place] [address] POCT-GLUCOSE [id number] 05:48:00 Test Item Value Reference Range Comments POC-GLUCOSE METER (BEAKER) 67 mg/dL 70-110 TESTE D AT [address] (test code = 1538) [place] [address] BASIC METABOLIC [id number] 05:07:00 Test Item Value Reference Range Comments SODIUM (BEAKER) (test 137 meq/L 136-145 code = 381) POTASSIUM (BEAKER) (test 4.1 meq/L 3.5-5.1 Specime n slightly code = 379) hemolyzed CHLORIDE (BEAKER) (test 103 meq/L 98-107 code = 382) CO2 (BEAKER) (test code = 26 meq/L 22-29 355) BLOOD UREA NITROGEN 45 mg/dL 7-21 (BEAKER) (test code = 354) CREATININE (BEAKER) (test 2.97 mg/dL 0.57-1.25 Specim en slightly code = 358) hemolyzed GLUCOSE RANDOM (BEAKER) 66 mg/dL 70-105 (test code = 652) CALCIUM (BEAKER) (test 9.1 mg/dL 8.4-10.2 code = 697) EGFR (BEAKER) (test code 15 mL/min/1.73 sq m EST IMATED GFR IS NOT = 1092) ACCURATE CREA TININE CLEARANCE IN PRE DICTING GLOMERULAR FILTR ATION RATE. ESTIMATED GFR IS NOT APPLICABLE F OR DIALYSIS PATIENT S. [id number] 05:06:00 Test Item Value Reference Range Comments MAGNESIUM (BEAKER) (test code = 2.0 mg/dL 1.6-2.6 Specimen slightly hemolyzed 627) POCT-GLUCOSE [id number] 20:02:00 Test Item Value Reference Range Comments POC-GLUCOSE METER (BEAKER) 95 mg/dL 70-110 TESTE D AT [address] (test code = 1538) [place] [address] POCT-GLUCOSE [id number] 17:35:00 Test Item Value Reference Range Comments POC-GLUCOSE METER (BEAKER) 144 mg/dL 70-110 TESTE D AT [address] (test code = 1538) [place] [address] POCT-GLUCOSE [id number] 13:42:00 Test Item Value Reference Range Comments POC-GLUCOSE METER (BEAKER) 180 mg/dL 70-110 TESTE D AT [address] (test code = 1538) [place] [address] POCT-GLUCOSE [id number] 07:56:00 Test Item Value Reference Range Comments POC-GLUCOSE METER (BEAKER) 206 mg/dL 70-110 TESTE D AT [address] (test code = 1538) [place] [address] CBC W/PLT COUNT & AUTO [id number] 06:25:00 Test Item Value Reference Range Comments WHITE BLOOD CELL COUNT (BEAKER) (test code = 13.6 K/ L 3.5 -10.5 775) RED BLOOD CELL COUNT (BEAKER) (test code = 761) 2.66 M/ L 3.93-5.22 HEMOGLOBIN (BEAKER) (test code = 410) 8.2 GM/DL 11.2-15.7 HEMATOCRIT (BEAKER) (test code = 411) 25.5 % 34.1-44.9 MEAN CORPUSCULAR VOLUME (BEAKER) (test code = 95.9 fL 79 .4-94.8 753) MEAN CORPUSCULAR HEMOGLOBIN (BEAKER) (test code 30.8 pg 25.6-32.2 = 751) MEAN CORPUSCULAR HEMOGLOBIN CONC (BEAKER) (test 32.2 GM/DL 32.2-35.5 code = 752) RED CELL DISTRIBUTION WIDTH (BEAKER) (test code 14.9 % 11.7-14.4 = 412) PLATELET COUNT (BEAKER) (test code = 756) 278 K/CU MM 150-45 0 MEAN PLATELET VOLUME (BEAKER) (test code = 754) 10.2 fL 9.4-12.3 NUCLEATED RED BLOOD CELLS (BEAKER) (test code = 0 /100 WBC 0-0 413) NEUTROPHILS RELATIVE PERCENT (BEAKER) (test code 82 % = 429) LYMPHOCYTES RELATIVE PERCENT (BEAKER) (test code 5 % = 430) MONOCYTES RELATIVE PERCENT (BEAKER) (test code = 13 % 431) EOSINOPHILS RELATIVE PERCENT (BEAKER) (test code 0 % = 432) BASOPHILS RELATIVE PERCENT (BEAKER) (test code = 0 % 437) NEUTROPHILS ABSOLUTE COUNT (BEAKER) (test code = 11.05 K/ L 1.56-6.13 670) LYMPHOCYTES ABSOLUTE COUNT (BEAKER) (test code = 0.63 K/ L 1.18-3.74 414) MONOCYTES ABSOLUTE COUNT (BEAKER) (test code = 1.74 K/ L 0 .24-0.36 415) EOSINOPHILS ABSOLUTE COUNT (BEAKER) (test code = 0.00 K/ L 0.04-0.36 416) BASOPHILS ABSOLUTE COUNT (BEAKER) (test code = 0.01 K/ L 0 .01-0.08 417) IMMATURE GRANULOCYTES-RELATIVE PERCENT (BEAKER) 1 % 0-1 (test code = 2801) BASIC METABOLIC [id number] 06:22:00 Test Item Value Reference Range Comments SODIUM (BEAKER) (test 135 meq/L 136-145 code = 381) POTASSIUM (BEAKER) (test 4.8 meq/L 3.5-5.1 Specime n moderately code = 379) hemolyzed CHLORIDE (BEAKER) (test 102 meq/L 98-107 code = 382) CO2 (BEAKER) (test code = 18 meq/L 22-29 355) BLOOD UREA NITROGEN 84 mg/dL 7-21 (BEAKER) (test code = 354) CREATININE (BEAKER) (test 4.72 mg/dL 0.57-1.25 Specim en moderately code = 358) hemolyzed GLUCOSE RANDOM (BEAKER) 205 mg/dL 70-105 (test code = 652) CALCIUM (BEAKER) (test 8.5 mg/dL 8.4-10.2 code = 697) EGFR (BEAKER) (test code 9 mL/min/1.73 sq m JOY MATED GFR IS NOT = 1092) ACCURATE CREA TININE CLEARANCE IN PRE DICTING GLOMERULAR FILTR ATION RATE. ESTIMATED GFR IS NOT APPLICABLE F OR DIALYSIS PATIENT S. RAD, CHEST, 1 VIEW, NON [id number] 05:59:00Reason for exam:->SOBShould this be performed at [...] Socorro Méndez Verified Date/Time: 08/09/2018 05:59:24 POCT-GLUCOSE [id number] 22:05:00 Test Item Value Reference Range Comments POC-GLUCOSE METER (BEAKER) 254 mg/dL 70-110 TESTE D AT [facility] [address] [place] [address] (test code = 1538) [facility] [address] POCT-GLUCOSE [id number] 18:33:00 Test Item Value Reference Range Comments POC-GLUCOSE METER (BEAKER) 271 mg/dL 70-110 TESTE D AT [facility] [address] (test code = 1538) [facility] [address] RAD, CHEST, 1 VIEW, NON [id number] 15:44:00Reason for exam:->IABP placementShould this be performed at the bedside?->YesFINAL REPORT EXAM: Frontal chest radiograph HISTORY PROVIDED: IABP placement C OMPARISON: 08/08/2018 at 1316 IMPRESSION:The IABP has been [...] the lower cervical spine. Signed: Heather Tracey MDReport Verified Date/Time: 08/08/2018 15:44:27 Reading Location: [facility] Mammo Reading Room RAD, CHEST, 1 VIEW, NON [id number] 13:42:00Reason for exam:->IABP positionShould this be performed at the bedside?->YesFINAL [...] The bones appear demineralized. Signed: Heather Tracey MDReport Verified Date/Time: 08/08/2018 13:42:06 Reading Location: [facility] Mammo Reading Room POCT-GLUCOSE [id number] 13:28:00 Test Item Value Reference Range Comments POC-GLUCOSE METER (BEAKER) 294 mg/dL 70-110 TESTE D AT [address] (test code = 1538) [place] [address] RAD, CHEST, 1 VIEW, NON [id number] 08:20:00Reason for exam:->SOBShould this be performed at [...] MDReport Verified Date/Time: 08/08/2018 08:20:51 Reading Location: [facility] Radiology Reading Room POCT-GLUCOSE [id number] 07:57:00 Test Item Value Reference Range Comments POC-GLUCOSE METER (BEAKER) 286 mg/dL 70-110 TESTE D AT [address] (test code = 1538) [place] [address] CBC W/PLT COUNT & AUTO [id number] 05:11:00 Test Item Value Reference Range Comments WHITE BLOOD CELL COUNT (BEAKER) (test code = 11.2 K/ L 3.5 -10.5 775) RED BLOOD CELL COUNT (BEAKER) (test code = 761) 2.71 M/ L 3.93-5.22 HEMOGLOBIN (BEAKER) (test code = 410) 8.3 GM/DL 11.2-15.7 HEMATOCRIT (BEAKER) (test code = 411) 26.1 % 34.1-44.9 MEAN CORPUSCULAR VOLUME (BEAKER) (test code = 96.3 fL 79 .4-94.8 753) MEAN CORPUSCULAR HEMOGLOBIN (BEAKER) (test code 30.6 pg 25.6-32.2 = 751) MEAN CORPUSCULAR HEMOGLOBIN CONC (BEAKER) (test 31.8 GM/DL 32.2-35.5 code = 752) RED CELL DISTRIBUTION WIDTH (BEAKER) (test code 14.0 % 11.7-14.4 = 412) PLATELET COUNT (BEAKER) (test code = 756) 227 K/CU MM 150-45 0 MEAN PLATELET VOLUME (BEAKER) (test code = 754) 10.6 fL 9.4-12.3 NUCLEATED RED BLOOD CELLS (BEAKER) (test code = 0 /100 WBC 0-0 413) NEUTROPHILS RELATIVE PERCENT (BEAKER) (test code 90 % = 429) LYMPHOCYTES RELATIVE PERCENT (BEAKER) (test code 4 % = 430) MONOCYTES RELATIVE PERCENT (BEAKER) (test code = 4 % 431) EOSINOPHILS RELATIVE PERCENT (BEAKER) (test code 0 % = 432) BASOPHILS RELATIVE PERCENT (BEAKER) (test code = 0 % 437) NEUTROPHILS ABSOLUTE COUNT (BEAKER) (test code = 10.06 K/ L 1.56-6.13 670) LYMPHOCYTES ABSOLUTE COUNT (BEAKER) (test code = 0.45 K/ L 1.18-3.74 414) MONOCYTES ABSOLUTE COUNT (BEAKER) (test code = 0.48 K/ L 0 .24-0.36 415) EOSINOPHILS ABSOLUTE COUNT (BEAKER) (test code = 0.00 K/ L 0.04-0.36 416) BASOPHILS ABSOLUTE COUNT (BEAKER) (test code = 0.03 K/ L 0 .01-0.08 417) IMMATURE GRANULOCYTES-RELATIVE PERCENT (BEAKER) 2 % 0-1 (test code = 2801) [id number] 04:43:00 Test Item Value Reference Range Comments MAGNESIUM (BEAKER) (test code = 627) 2.3 mg/dL 1.6-2.6 BASIC METABOLIC [id number] 04:43:00 Test Item Value Reference Range Comments SODIUM (BEAKER) (test 135 meq/L 136-145 code = 381) POTASSIUM (BEAKER) (test 4.9 meq/L 3.5-5.1 code = 379) CHLORIDE (BEAKER) (test 102 meq/L 98-107 code = 382) CO2 (BEAKER) (test code = 18 meq/L 22-29 355) BLOOD UREA NITROGEN 68 mg/dL 7-21 (BEAKER) (test code = 354) CREATININE (BEAKER) (test 3.54 mg/dL 0.57-1.25 code = 358) GLUCOSE RANDOM (BEAKER) 267 mg/dL 70-105 (test code = 652) CALCIUM (BEAKER) (test 8.6 mg/dL 8.4-10.2 code = 697) EGFR (BEAKER) (test code 12 mL/min/1.73 sq m EST IMATED GFR IS NOT = 1092) ACCURATE CREA TININE CLEARANCE IN PRE DICTING GLOMERULAR FILTR ATION RATE. ESTIMATED GFR IS NOT APPLICABLE F OR DIALYSIS PATIENT S. POCT-GLUCOSE [id number] 22:27:00 Test Item Value Reference Range Comments POC-GLUCOSE METER (BEAKER) 279 mg/dL 70-110 TESTE D AT [facility] [address] [facility] (test code = 1538) [facility] [address] BASIC METABOLIC [id number] 22:17:00 Test Item Value Reference Range Comments SODIUM (BEAKER) (test 133 meq/L 136-145 code = 381) POTASSIUM (BEAKER) (test 4.6 meq/L 3.5-5.1 code = 379) CHLORIDE (BEAKER) (test 100 meq/L 98-107 code = 382) CO2 (BEAKER) (test code = 18 meq/L 22-29 355) BLOOD UREA NITROGEN 64 mg/dL 7-21 (BEAKER) (test code = 354) CREATININE (BEAKER) (test 3.59 mg/dL 0.57-1.25 code = 358) GLUCOSE RANDOM (BEAKER) 250 mg/dL 70-105 (test code = 652) CALCIUM (BEAKER) (test 8.3 mg/dL 8.4-10.2 code = 697) EGFR (BEAKER) (test code 12 mL/min/1.73 sq m EST IMATED GFR IS NOT = 1092) ACCURATE CREA TININE CLEARANCE IN PRE DICTING GLOMERULAR FILTR ATION RATE. ESTIMATED GFR IS NOT APPLICABLE F OR DIALYSIS PATIENT S. [id number] 22:13:00 Test Item Value Reference Range Comments MAGNESIUM (BEAKER) (test code = 627) 2.1 mg/dL 1.6-2.6 [id number] 19:37:00 Test Item Value Reference Range Comments ACTIVATED CLOTTING TIME 268 sec TESTED A T [facility] [address] (BEAKER) (test code = 441) [place] [address] [id number] 18:30:00 Test Item Value Reference Range Comments ACTIVATED CLOTTING TIME 257 sec TESTED A T [facility] [address] (BEAKER) (test code = 441) [place] [address] [id number] 17:58:00 Test Item Value Reference Range Comments ACTIVATED CLOTTING TIME 219 sec TESTED A T [facility] [address] (BEAKER) (test code = 441) [place] [address] [id number] 17:58:00 Test Item Value Reference Range Comments ACTIVATED CLOTTING TIME > sec OUTSIDE MEASURING RANGETESTED AT (BEAKER) (test code = 441) [address] [address] POCT-GLUCOSE [id number] 12:23:00 Test Item Value Reference Range Comments POC-GLUCOSE METER (BEAKER) 169 mg/dL 70-110 TESTE D AT [address] (test code = 1538) [facility] [address] RAD, CHEST, 1 VIEW, NON [id number] 09:10:00Reason for exam:->SOBShould this be performed at the bedside?->YesFINAL REPORT Chest dated 08/07/2018 COMPARISON: 08/06/2018 Clinical Information: SOB Comment: Heart is enlarged. Pulmonary vasculature is indistinct. Interstitial disease is seen bilaterally suggestive of vascular congestion or pulmonary edema. There is small bilateral pleural effusion. IMPRESSION: No interval change. Signed: Yuan Arango Verified Date/Time: 08/07/2018 09:10:23 Reading Location: [facility] Radiology Reading Room POCT-GLUCOSE [id number] 07:49:00 Test Item Value Reference Range Comments POC-GLUCOSE METER (BEAKER) 165 mg/dL 70-110 TESTE D AT [facility] [address] (test code = 1538) [place] [address] COMPREHENSIVE METABOLIC [id number] 06:00:00 Test Item Value Reference Range Comments TOTAL PROTEIN (BEAKER) 6.0 gm/dL 6.0-8.3 (test code = 770) ALBUMIN (BEAKER) (test 3.3 g/dL 3.5-5.0 code = 1145) ALKALINE PHOSPHATASE 58 U/L 40-150 (BEAKER) (test code = 346) BILIRUBIN TOTAL (BEAKER) 0.4 mg/dL 0.2-1.2 (test code = 377) SODIUM (BEAKER) (test code 135 meq/L 136-145 = 381) POTASSIUM (BEAKER) (test 4.1 meq/L 3.5-5.1 code = 379) CHLORIDE (BEAKER) (test 102 meq/L 98-107 code = 382) CO2 (BEAKER) (test code = 24 meq/L 22-29 355) BLOOD UREA NITROGEN 52 mg/dL 7-21 (BEAKER) (test code = 354) CREATININE (BEAKER) (test 3.23 mg/dL 0.57-1.25 code = 358) GLUCOSE RANDOM (BEAKER) 154 mg/dL 70-105 (test code = 652) CALCIUM (BEAKER) (test 8.3 mg/dL 8.4-10.2 code = 697) AST (SGOT) (BEAKER) (test 31 U/L 5-34 code = 353) ALT (SGPT) (BEAKER) (test 17 U/L 6-55 code = 347) EGFR (BEAKER) (test code = 14 mL/min/1.73 sq m E STIMATED GFR IS NOT 1092) ACCURATE CREA TININE CLEARANCE IN PRE DICTING GLOMERULAR FILTR ATION RATE. ESTIMATED GFR IS NOT APPLICABLE F OR DIALYSIS PATIENT S. [id number] 05:56:00 Test Item Value Reference Range Comments PHOSPHORUS (BEAKER) (test code = 604) 2.9 mg/dL 2.3-4.7 [id number] 05:56:00 Test Item Value Reference Range Comments MAGNESIUM (BEAKER) (test code = 627) 2.0 mg/dL 1.6-2.6 CBC W/PLT COUNT & AUTO [id number] 05:42:00 Test Item Value Reference Range Comments WHITE BLOOD CELL COUNT (BEAKER) (test code = 9.6 K/ L 3.5 -10.5 775) RED BLOOD CELL COUNT (BEAKER) (test code = 761) 2.84 M/ L 3.93-5.22 HEMOGLOBIN (BEAKER) (test code = 410) 8.8 GM/DL 11.2-15.7 HEMATOCRIT (BEAKER) (test code = 411) 27.2 % 34.1-44.9 MEAN CORPUSCULAR VOLUME (BEAKER) (test code = 95.8 fL 79 .4-94.8 753) MEAN CORPUSCULAR HEMOGLOBIN (BEAKER) (test code 31.0 pg 25.6-32.2 = 751) MEAN CORPUSCULAR HEMOGLOBIN CONC (BEAKER) (test 32.4 GM/DL 32.2-35.5 code = 752) RED CELL DISTRIBUTION WIDTH (BEAKER) (test code 14.1 % 11.7-14.4 = 412) PLATELET COUNT (BEAKER) (test code = 756) 218 K/CU MM 150-45 0 MEAN PLATELET VOLUME (BEAKER) (test code = 754) 10.2 fL 9.4-12.3 NUCLEATED RED BLOOD CELLS (BEAKER) (test code = 0 /100 WBC 0-0 413) NEUTROPHILS RELATIVE PERCENT (BEAKER) (test code 76 % = 429) LYMPHOCYTES RELATIVE PERCENT (BEAKER) (test code 9 % = 430) MONOCYTES RELATIVE PERCENT (BEAKER) (test code = 12 % 431) EOSINOPHILS RELATIVE PERCENT (BEAKER) (test code 1 % = 432) BASOPHILS RELATIVE PERCENT (BEAKER) (test code = 0 % 437) NEUTROPHILS ABSOLUTE COUNT (BEAKER) (test code = 7.35 K/ L 1.56-6.13 670) LYMPHOCYTES ABSOLUTE COUNT (BEAKER) (test code = 0.84 K/ L 1.18-3.74 414) MONOCYTES ABSOLUTE COUNT (BEAKER) (test code = 1.16 K/ L 0 .24-0.36 415) EOSINOPHILS ABSOLUTE COUNT (BEAKER) (test code = 0.13 K/ L 0.04-0.36 416) BASOPHILS ABSOLUTE COUNT (BEAKER) (test code = 0.04 K/ L 0 .01-0.08 417) IMMATURE GRANULOCYTES-RELATIVE PERCENT (BEAKER) 1 % 0-1 (test code = 2801) CALCIUM, [id number] 05:32:00 Test Item Value Reference Range Comments CALCIUM IONIZED (BEAKER) (test code = 698) 1.12 mmol/L 1.12- 1.27 PH, BLOOD (BEAKER) (test code = 1810) 7.36 POCT-GLUCOSE [id number] 21:35:00 Test Item Value Reference Range Comments POC-GLUCOSE METER (BEAKER) 143 mg/dL 70-110 TESTE D AT [address] (test code = 1538) [place] [address] POCT-GLUCOSE [id number] 17:31:00 Test Item Value Reference Range Comments POC-GLUCOSE METER (BEAKER) 105 mg/dL 70-110 TESTE D AT [address] (test code = 1538) [place] [address] POCT-GLUCOSE [id number] 12:46:00 Test Item Value Reference Range Comments POC-GLUCOSE METER (BEAKER) 159 mg/dL 70-110 TESTE D AT [address] (test code = 1538) [place] [address] POCT-GLUCOSE [id number] 07:40:00 Test Item Value Reference Range Comments POC-GLUCOSE METER (BEAKER) 120 mg/dL 70-110 TESTE D AT [address] (test code = 1538) [place] [address] [id number] 04:52:00 Test Item Value Reference Range Comments MAGNESIUM (BEAKER) (test code = 627) 1.8 mg/dL 1.6-2.6 BASIC METABOLIC [id number] 04:52:00 Test Item Value Reference Range Comments SODIUM (BEAKER) (test 137 meq/L 136-145 code = 381) POTASSIUM (BEAKER) (test 3.8 meq/L 3.5-5.1 code = 379) CHLORIDE (BEAKER) (test 105 meq/L 98-107 code = 382) CO2 (BEAKER) (test code = 23 meq/L 22-29 355) BLOOD UREA NITROGEN 51 mg/dL 7-21 (BEAKER) (test code = 354) CREATININE (BEAKER) (test 2.93 mg/dL 0.57-1.25 code = 358) GLUCOSE RANDOM (BEAKER) 108 mg/dL 70-105 (test code = 652) CALCIUM (BEAKER) (test 8.4 mg/dL 8.4-10.2 code = 697) EGFR (BEAKER) (test code 16 mL/min/1.73 sq m EST IMATED GFR IS NOT = 1092) ACCURATE CREA TININE CLEARANCE IN PRE DICTING GLOMERULAR FILTR ATION RATE. ESTIMATED GFR IS NOT APPLICABLE F OR DIALYSIS PATIENT S. RAD, CHEST, 1 VIEW, NON [id number] 04:45:00Reason for exam:->SOBShould this be performed at [...] MDReport Verified Date/Time: 08/06/2018 04:45:08 Reading Location: [address] Reading Room APTT 2018-08-06 04:31:00 Test Item Value Reference Range Comments PARTIAL THROMBOPLASTIN TIME (BEAKER) (test code 45.7 seconds 22.5-36.0 = 760) 4 hours after the start of continuous infusion and 4 hours after any rate change CBC W/PLT COUNT & AUTO [id number] 04:23:00 Test Item Value Reference Range Comments WHITE BLOOD CELL COUNT (BEAKER) (test code = 8.8 K/ L 3.5 -10.5 775) RED BLOOD CELL COUNT (BEAKER) (test code = 761) 2.95 M/ L 3.93-5.22 HEMOGLOBIN (BEAKER) (test code = 410) 9.1 GM/DL 11.2-15.7 HEMATOCRIT (BEAKER) (test code = 411) 27.9 % 34.1-44.9 MEAN CORPUSCULAR VOLUME (BEAKER) (test code = 94.6 fL 79 .4-94.8 753) MEAN CORPUSCULAR HEMOGLOBIN (BEAKER) (test code 30.8 pg 25.6-32.2 = 751) MEAN CORPUSCULAR HEMOGLOBIN CONC (BEAKER) (test 32.6 GM/DL 32.2-35.5 code = 752) RED CELL DISTRIBUTION WIDTH (BEAKER) (test code 13.4 % 11.7-14.4 = 412) PLATELET COUNT (BEAKER) (test code = 756) 223 K/CU MM 150-45 0 MEAN PLATELET VOLUME (BEAKER) (test code = 754) 10.0 fL 9.4-12.3 NUCLEATED RED BLOOD CELLS (BEAKER) (test code = 0 /100 WBC 0-0 413) NEUTROPHILS RELATIVE PERCENT (BEAKER) (test code 75 % = 429) LYMPHOCYTES RELATIVE PERCENT (BEAKER) (test code 12 % = 430) MONOCYTES RELATIVE PERCENT (BEAKER) (test code = 10 % 431) EOSINOPHILS RELATIVE PERCENT (BEAKER) (test code 2 % = 432) BASOPHILS RELATIVE PERCENT (BEAKER) (test code = 0 % 437) NEUTROPHILS ABSOLUTE COUNT (BEAKER) (test code = 6.55 K/ L 1.56-6.13 670) LYMPHOCYTES ABSOLUTE COUNT (BEAKER) (test code = 1.08 K/ L 1.18-3.74 414) MONOCYTES ABSOLUTE COUNT (BEAKER) (test code = 0.89 K/ L 0 .24-0.36 415) EOSINOPHILS ABSOLUTE COUNT (BEAKER) (test code = 0.16 K/ L 0.04-0.36 416) BASOPHILS ABSOLUTE COUNT (BEAKER) (test code = 0.03 K/ L 0 .01-0.08 417) IMMATURE GRANULOCYTES-RELATIVE PERCENT (BEAKER) 1 % 0-1 (test code = 2801) POCT-GLUCOSE [id number] 21:47:00 Test Item Value Reference Range Comments POC-GLUCOSE METER (BEAKER) 184 mg/dL 70-110 [facility]E D [facility] [facility] = [facility]) [facility] 77 030 POCT-GLUCOSE [id number] 17:15:00 Test Item Value Reference Range Comments POC-GLUCOSE METER (BEAKER) 120 mg/dL 70-110 TESTE D AT [facility] [address] [facility] (test code = 1538) [place] [address]30 POCT-GLUCOSE [id number] 12:00:00 Test Item Value Reference Range Comments POC-GLUCOSE METER (BEAKER) 226 mg/dL 70-110 TESTE D AT [facility] [address] [facility] (test code = 1538) [place] [address]30 POCT-GLUCOSE [id number] 07:45:00 Test Item Value Reference Range Comments POC-GLUCOSE METER (BEAKER) 192 mg/dL 70-110 TESTE D AT [facility] [address] [facility] (test code = 1538) [place] [address] RAD, CHEST, 1 VIEW, NON [id number] 07:45:00Reason for exam:->SOBShould this be performed at [...] JR Hernandez Robert MDReport Verified Date/Time: 08/05/2018 07:45:53 Reading Location: [address] Neuro Reading Room [id number] 06:25:00 Test Item Value Reference Range Comments MAGNESIUM (BEAKER) (test code = 627) 1.8 mg/dL 1.6-2.6 BASIC METABOLIC [id number] 06:25:00 Test Item Value Reference Range Comments SODIUM (BEAKER) (test 138 meq/L 136-145 code = 381) POTASSIUM (BEAKER) (test 3.9 meq/L 3.5-5.1 code = 379) CHLORIDE (BEAKER) (test 107 meq/L 98-107 code = 382) CO2 (BEAKER) (test code = 23 meq/L 22-29 355) BLOOD UREA NITROGEN 53 mg/dL 7-21 (BEAKER) (test code = 354) CREATININE (BEAKER) (test 2.79 mg/dL 0.57-1.25 code = 358) GLUCOSE RANDOM (BEAKER) 134 mg/dL 70-105 (test code = 652) CALCIUM (BEAKER) (test 8.3 mg/dL 8.4-10.2 code = 697) EGFR (BEAKER) (test code 16 mL/min/1.73 sq m EST IMATED GFR IS NOT = 1092) ACCURATE CREA TININE CLEARANCE IN PRE DICTING GLOMERULAR FILTR ATION RATE. ESTIMATED GFR IS NOT APPLICABLE F OR DIALYSIS PATIENT S. CBC W/PLT COUNT & AUTO [id number] 05:59:00 Test Item Value Reference Range Comments WHITE BLOOD CELL COUNT (BEAKER) (test code = 8.1 K/ L 3.5 -10.5 775) RED BLOOD CELL COUNT (BEAKER) (test code = 761) 3.09 M/ L 3.93-5.22 HEMOGLOBIN (BEAKER) (test code = 410) 9.5 GM/DL 11.2-15.7 HEMATOCRIT (BEAKER) (test code = 411) 30.1 % 34.1-44.9 MEAN CORPUSCULAR VOLUME (BEAKER) (test code = 97.4 fL 79 .4-94.8 753) MEAN CORPUSCULAR HEMOGLOBIN (BEAKER) (test code 30.7 pg 25.6-32.2 = 751) MEAN CORPUSCULAR HEMOGLOBIN CONC (BEAKER) (test 31.6 GM/DL 32.2-35.5 code = 752) RED CELL DISTRIBUTION WIDTH (BEAKER) (test code 13.5 % 11.7-14.4 = 412) PLATELET COUNT (BEAKER) (test code = 756) 172 K/CU MM 150-45 0 MEAN PLATELET VOLUME (BEAKER) (test code = 754) 10.1 fL 9.4-12.3 NUCLEATED RED BLOOD CELLS (BEAKER) (test code = 0 /100 WBC 0-0 413) NEUTROPHILS RELATIVE PERCENT (BEAKER) (test code 75 % = 429) LYMPHOCYTES RELATIVE PERCENT (BEAKER) (test code 12 % = 430) MONOCYTES RELATIVE PERCENT (BEAKER) (test code = 11 % 431) EOSINOPHILS RELATIVE PERCENT (BEAKER) (test code 2 % = 432) BASOPHILS RELATIVE PERCENT (BEAKER) (test code = 0 % 437) NEUTROPHILS ABSOLUTE COUNT (BEAKER) (test code = 6.06 K/ L 1.56-6.13 670) LYMPHOCYTES ABSOLUTE COUNT (BEAKER) (test code = 0.95 K/ L 1.18-3.74 414) MONOCYTES ABSOLUTE COUNT (BEAKER) (test code = 0.85 K/ L 0 .24-0.36 415) EOSINOPHILS ABSOLUTE COUNT (BEAKER) (test code = 0.13 K/ L 0.04-0.36 416) BASOPHILS ABSOLUTE COUNT (BEAKER) (test code = 0.03 K/ L 0 .01-0.08 417) IMMATURE GRANULOCYTES-RELATIVE PERCENT (BEAKER) 1 % 0-1 (test code = 2801) POCT-GLUCOSE [id number] 22:07:00 Test Item Value Reference Range Comments POC-GLUCOSE METER (BEAKER) 183 mg/dL 70-110 TESTE D AT [address] (test code = 1538) [place] [address] POCT-GLUCOSE [id number] 18:23:00 Test Item Value Reference Range Comments POC-GLUCOSE METER (BEAKER) 174 mg/dL 70-110 TESTE D AT [address] (test code = 1538) [place] [address] C. DIFFICILE GDH [id number] 15:36:00 Test Item Value Reference Range Comments CDT TOXIN (test code = Negative Negative [id number]) CDT GDH ANTIGEN (test code = Positive Negative C. difficile present but toxin [id number]) not detected. I ndicates colonization wit h non-toxigenic strain or level of toxin below detectable level s. No need for enteric isolatio n. Treatment is rarely needed (o nly when strong clinical suspici on for Clostridium diff icile infection) Testing performed by Alere Rapid Cassette Assay. For GDH, published sensitivity of the assay is 98.7% compared to cytotoxicity testing. For Toxin AB, published sensitivity is 87.8% and specificity 99.4% compared to cytotoxicity testing.Verification of kit performance was done by the [facility] Microbiology Lab prior to clinical use.URINALYSIS W/ REFLEX URINE [id number] 15:18:00 Test Item Value Reference Range Comments COLOR (BEAKER) (test code = 470) Yellow CLARITY (BEAKER) (test code = 469) Hazy SPECIFIC GRAVITY UA (BEAKER) (test code = 468) 1.017 1 .001-1.035 PH UA (BEAKER) (test code = 467) 5.5 5.0-8.0 PROTEIN UA (BEAKER) (test code = 464) 30 mg/dL Negative GLUCOSE UA (BEAKER) (test code = 365) Negative Negative KETONES UA (BEAKER) (test code = 371) Negative Negative BILIRUBIN UA (BEAKER) (test code = 462) Negative Negative BLOOD UA (BEAKER) (test code = 461) Trace Negative NITRITE UA (BEAKER) (test code = 465) Negative Negative LEUKOCYTE ESTERASE UA (BEAKER) (test code = 466) Large Negative UROBILINOGEN UA (BEAKER) (test code = 463) 0.2 mg/dL 0.2-1 .0 RBC UA (BEAKER) (test code = 519) 0 /HPF WBC UA (BEAKER) (test code = 520) 190 /HPF BACTERIA (BEAKER) (test code = 517) Many MUCUS (BEAKER) (test code = 1574) Rare SQUAMOUS EPITHELIAL (BEAKER) (test code = 516) 1 /HPF HYALINE CASTS (BEAKER) (test code = 514) 4 /LPF SOURCE(BEAKER) (test code = 2795) POCT-GLUCOSE [id number] 13:03:00 Test Item Value Reference Range Comments POC-GLUCOSE METER (BEAKER) 213 mg/dL 70-110 TESTE D AT [facility] [address] [place] [address] (test code = 1538) [place] [address] OCCULT BLOOD, [id number] 11:58:00 Test Item Value Reference Range Comments FECAL OCCULT BLOOD (BEAKER) (test code = 618) Positive Ne gative POCT-GLUCOSE [id number] 08:00:00 Test Item Value Reference Range Comments POC-GLUCOSE METER (BEAKER) 127 mg/dL 70-110 TESTE D AT [facility] [address] [facility] (test code = 1538) [place] [address] TROPONIN [id number] 07:07:00 Test Item Value Reference Range Comments TROPONIN I (BEAKER) (test code = 397) 44.85 ng/mL 0.00-0.03 Troponin I (TnI) levels [...] and persistent tachyarrhythmia.RAD, CHEST, 1 VIEW, NON [id number] 07:00:00Reason for exam:->SOBShould this be performed at the bedside?->Yes FINAL REPORT RAD, CHEST, 1 VIEW, NON DEPT INDICATION: SOB COMPARISON: Prior day's exam FINDINGS: Portable frontal view of the chest. IMPRESSION: Support Lines: None. Lungs andpleura: Mild interstitial congestion with central predominance. Airspace disease at the left base isslightly less conspicuous in the current examination. Trace left effusion. No pneumothorax.Heart andmediastinum: Stable contours.Additional findings: None. Signed: JR Mary, Radha Alejo Verified Date/Time: 08/04/2018 07:00:06 Reading Location: [address] Neuro Reading Room COMPREHENSIVE METABOLIC [id number] 06:56:00 Test Item Value Reference Range Comments TOTAL PROTEIN (BEAKER) 5.7 gm/dL 6.0-8.3 (test code = 770) ALBUMIN (BEAKER) (test 3.2 g/dL 3.5-5.0 code = 1145) ALKALINE PHOSPHATASE 55 U/L 40-150 (BEAKER) (test code = 346) BILIRUBIN TOTAL (BEAKER) 0.5 mg/dL 0.2-1.2 (test code = 377) SODIUM (BEAKER) (test code 138 meq/L 136-145 = 381) POTASSIUM (BEAKER) (test 3.7 meq/L 3.5-5.1 code = 379) CHLORIDE (BEAKER) (test 107 meq/L 98-107 code = 382) CO2 (BEAKER) (test code = 24 meq/L 22-29 355) BLOOD UREA NITROGEN 61 mg/dL 7-21 (BEAKER) (test code = 354) CREATININE (BEAKER) (test 2.88 mg/dL 0.57-1.25 code = 358) GLUCOSE RANDOM (BEAKER) 122 mg/dL 70-105 (test code = 652) CALCIUM (BEAKER) (test 8.1 mg/dL 8.4-10.2 code = 697) AST (SGOT) (BEAKER) (test 71 U/L 5-34 code = 353) ALT (SGPT) (BEAKER) (test 23 U/L 6-55 code = 347) EGFR (BEAKER) (test code = 16 mL/min/1.73 sq m E STIMATED GFR IS NOT 1092) ACCURATE CREA TININE CLEARANCE IN PRE DICTING GLOMERULAR FILTR ATION RATE. ESTIMATED GFR IS NOT APPLICABLE F OR DIALYSIS PATIENT S. [id number] 06:55:00 Test Item Value Reference Range Comments PHOSPHORUS (BEAKER) (test code = 604) 2.8 mg/dL 2.3-4.7 [id number] 06:55:00 Test Item Value Reference Range Comments MAGNESIUM (BEAKER) (test code = 627) 1.9 mg/dL 1.6-2.6 CBC W/PLT COUNT & AUTO [id number] 06:12:00 Test Item Value Reference Range Comments WHITE BLOOD CELL COUNT (BEAKER) (test code = 10.1 K/ L 3.5 -10.5 775) RED BLOOD CELL COUNT (BEAKER) (test code = 761) 3.03 M/ L 3.93-5.22 HEMOGLOBIN (BEAKER) (test code = 410) 9.3 GM/DL 11.2-15.7 HEMATOCRIT (BEAKER) (test code = 411) 28.5 % 34.1-44.9 MEAN CORPUSCULAR VOLUME (BEAKER) (test code = 94.1 fL 79 .4-94.8 753) MEAN CORPUSCULAR HEMOGLOBIN (BEAKER) (test code 30.7 pg 25.6-32.2 = 751) MEAN CORPUSCULAR HEMOGLOBIN CONC (BEAKER) (test 32.6 GM/DL 32.2-35.5 code = 752) RED CELL DISTRIBUTION WIDTH (BEAKER) (test code 13.4 % 11.7-14.4 = 412) PLATELET COUNT (BEAKER) (test code = 756) 151 K/CU MM 150-45 0 MEAN PLATELET VOLUME (BEAKER) (test code = 754) 10.5 fL 9.4-12.3 NUCLEATED RED BLOOD CELLS (BEAKER) (test code = 0 /100 WBC 0-0 413) NEUTROPHILS RELATIVE PERCENT (BEAKER) (test code 77 % = 429) LYMPHOCYTES RELATIVE PERCENT (BEAKER) (test code 11 % = 430) MONOCYTES RELATIVE PERCENT (BEAKER) (test code = 11 % 431) EOSINOPHILS RELATIVE PERCENT (BEAKER) (test code 1 % = 432) BASOPHILS RELATIVE PERCENT (BEAKER) (test code = 0 % 437) NEUTROPHILS ABSOLUTE COUNT (BEAKER) (test code = 7.78 K/ L 1.56-6.13 670) LYMPHOCYTES ABSOLUTE COUNT (BEAKER) (test code = 1.08 K/ L 1.18-3.74 414) MONOCYTES ABSOLUTE COUNT (BEAKER) (test code = 1.09 K/ L 0 .24-0.36 415) EOSINOPHILS ABSOLUTE COUNT (BEAKER) (test code = 0.07 K/ L 0.04-0.36 416) BASOPHILS ABSOLUTE COUNT (BEAKER) (test code = 0.02 K/ L 0 .01-0.08 417) IMMATURE GRANULOCYTES-RELATIVE PERCENT (BEAKER) 1 % 0-1 (test code = 2801) CALCIUM, [id number] 05:58:00 Test Item Value Reference Range Comments CALCIUM IONIZED (BEAKER) (test code = 698) 1.11 mmol/L 1.12- 1.27 PH, BLOOD (BEAKER) (test code = 1810) 7.38 POCT-GLUCOSE [id number] 22:08:00 Test Item Value Reference Range Comments POC-GLUCOSE METER (BEAKER) 163 mg/dL 70-110 TESTE D AT [address] (test code = 1538) [place] [address] POCT-GLUCOSE [id number] 18:05:00 Test Item Value Reference Range Comments POC-GLUCOSE METER (BEAKER) 215 mg/dL 70-110 TESTE D AT [address] (test code = 1538) [place] [address] POCT-GLUCOSE [id number] 12:33:00 Test Item Value Reference Range Comments POC-GLUCOSE METER (CRISTY) 287 mg/dL 70-110 TESTE D AT [facility] [address] (test code = 1538) [place] [address] TROPONIN [id number] 10:28:00 Test Item Value Reference Range Comments TROPONIN I (CRISTY) (test code = 397) 56.87 ng/mL 0.00-0.03 Troponin I (TnI) levels [...] Value Reference Range Comments CREATINE KINASE TOTAL (CRISTY) (test code = 380) 601 U/L 29-200 RAD, CHEST, 1 VIEW, NON [id number] 08:51:00Reason for exam:->SOBShould this be performed at the bedside?->YesFINAL REPORT TECHNIQUE: Frontal view of the chest. INDICATION: 78-year-old woman with shortness of breath. COMPARISON: Chest radiograph 08/02/2018. FINDINGS: LINES/TUBES: Interval removal of the Impella assist device. [...] zone. Otherwise, no significant change since 08/02/2018. Signed: Rob Navarro MDReport Verified Date/Time: 08/03/2018 08:51:22 Reading Location: [facility] Radiology Reading Room [id number] 03:08:00 Test Item Value Reference Range Comments FERRITIN (BEAKER) (test code = 361) 207 ng/mL 5-275 VITAMIN B12 AND [id number] 03:08:00 Test Item Value Reference Range Comments VITAMIN B12 (BEAKER) (test code = 774) 212 pg/mL 213-816 FOLATE (BEAKER) (test code = 362) 15.1 ng/mL >=7.0 COMPREHENSIVE METABOLIC [id number] 02:38:00 Test Item Value Reference Range Comments TOTAL PROTEIN (BEAKER) 5.7 gm/dL 6.0-8.3 (test code = 770) ALBUMIN (BEAKER) (test 3.2 g/dL 3.5-5.0 code = 1145) ALKALINE PHOSPHATASE 55 U/L 40-150 (BEAKER) (test code = 346) BILIRUBIN TOTAL (BEAKER) 0.5 mg/dL 0.2-1.2 (test code = 377) SODIUM (BEAKER) (test code 139 meq/L 136-145 = 381) POTASSIUM (BEAKER) (test 4.6 meq/L 3.5-5.1 code = 379) CHLORIDE (BEAKER) (test 107 meq/L 98-107 code = 382) CO2 (BEAKER) (test code = 24 meq/L 22-29 355) BLOOD UREA NITROGEN 63 mg/dL 7-21 (BEAKER) (test code = 354) CREATININE (BEAKER) (test 2.96 mg/dL 0.57-1.25 code = 358) GLUCOSE RANDOM (BEAKER) 205 mg/dL 70-105 (test code = 652) CALCIUM (BEAKER) (test 8.7 mg/dL 8.4-10.2 code = 697) AST (SGOT) (BEAKER) (test 138 U/L 5-34 code = 353) ALT (SGPT) (BEAKER) (test 28 U/L 6-55 code = 347) EGFR (BEAKER) (test code = 15 mL/min/1.73 sq m E STIMATED GFR IS NOT 1092) ACCURATE CREA TININE CLEARANCE IN PRE DICTING GLOMERULAR FILTR ATION RATE. ESTIMATED GFR IS NOT APPLICABLE F OR DIALYSIS PATIENT S. [id number] 02:34:00 Test Item Value Reference Range Comments PHOSPHORUS (BEAKER) (test code = 604) 4.7 mg/dL 2.3-4.7 [id number] 02:34:00 Test Item Value Reference Range Comments MAGNESIUM (BEAKER) (test code = 627) 2.0 mg/dL 1.6-2.6 IRON, TIBC, % SAT. (WITHOUT FERRITIN)2018-08-03 02:34:00 Test Item Value Reference Range Comments IRON (BEAKER) (test code = 547) 27.0 ug/dL 40.0-160.0 TOTAL IRON BINDING CAPACITY (BEAKER) (test code = 221 ug/dL 250-450 769) IRON % SATURATION (2) (BEAKER) (test code = 2590) 12 % 20-55 CALCIUM, [id number] 02:26:00 Test Item Value Reference Range Comments CALCIUM IONIZED (BEAKER) (test code = 698) 1.12 mmol/L 1.12- 1.27 PH, BLOOD (BEAKER) (test code = 1810) 7.27 CBC W/PLT COUNT & AUTO [id number] 02:20:00 Test Item Value Reference Range Comments WHITE BLOOD CELL COUNT (BEAKER) (test code = 12.5 K/ L 3.5 -10.5 775) RED BLOOD CELL COUNT (BEAKER) (test code = 761) 3.39 M/ L 3.93-5.22 HEMOGLOBIN (BEAKER) (test code = 410) 10.4 GM/DL 11.2-15.7 HEMATOCRIT (BEAKER) (test code = 411) 32.5 % 34.1-44.9 MEAN CORPUSCULAR VOLUME (BEAKER) (test code = 95.9 fL 79 .4-94.8 753) MEAN CORPUSCULAR HEMOGLOBIN (BEAKER) (test code 30.7 pg 25.6-32.2 = 751) MEAN CORPUSCULAR HEMOGLOBIN CONC (BEAKER) (test 32.0 GM/DL 32.2-35.5 code = 752) RED CELL DISTRIBUTION WIDTH (BEAKER) (test code 13.6 % 11.7-14.4 = 412) PLATELET COUNT (BEAKER) (test code = 756) 155 K/CU MM 150-45 0 MEAN PLATELET VOLUME (BEAKER) (test code = 754) 10.4 fL 9.4-12.3 NUCLEATED RED BLOOD CELLS (BEAKER) (test code = 0 /100 WBC 0-0 413) NEUTROPHILS RELATIVE PERCENT (BEAKER) (test code 83 % = 429) LYMPHOCYTES RELATIVE PERCENT (BEAKER) (test code 8 % = 430) MONOCYTES RELATIVE PERCENT (BEAKER) (test code = 9 % 431) EOSINOPHILS RELATIVE PERCENT (BEAKER) (test code 0 % = 432) BASOPHILS RELATIVE PERCENT (BEAKER) (test code = 0 % 437) NEUTROPHILS ABSOLUTE COUNT (BEAKER) (test code = 10.32 K/ L 1.56-6.13 670) LYMPHOCYTES ABSOLUTE COUNT (BEAKER) (test code = 1.01 K/ L 1.18-3.74 414) MONOCYTES ABSOLUTE COUNT (BEAKER) (test code = 1.07 K/ L 0 .24-0.36 415) EOSINOPHILS ABSOLUTE COUNT (BEAKER) (test code = 0.01 K/ L 0.04-0.36 416) BASOPHILS ABSOLUTE COUNT (BEAKER) (test code = 0.03 K/ L 0 .01-0.08 417) IMMATURE GRANULOCYTES-RELATIVE PERCENT (BEAKER) 1 % 0-1 (test code = 2801) RETICULOCYTE [id number] 02:16:00 Test Item Value Reference Range Comments RETICULOCYTE COUNT PCT (BEAKER) (test code = 575) 2.7 % 0.5-1.7 POCT-GLUCOSE [id number] 01:12:00 Test Item Value Reference Range Comments POC-GLUCOSE METER (BEAKER) 239 mg/dL 70-110 TESTE D AT [address] (test code = 1538) [place] [address] POCT-GLUCOSE [id number] 20:38:00 Test Item Value Reference Range Comments POC-GLUCOSE METER (BEAKER) 207 mg/dL 70-110 TESTE D AT [address] (test code = 1538) [place] [address] POCT-GLUCOSE [id number] 16:39:00 Test Item Value Reference Range Comments POC-GLUCOSE METER (BEAKER) 216 mg/dL 70-110 TESTE D AT [address] (test code = 1538) [place] [address] [id number] 12:20:00 Test Item Value Reference Range Comments PARTIAL THROMBOPLASTIN TIME (BEAKER) (test code 36.6 seconds 22.5-36.0 = 760) 4 hours after the start of continuous infusion and 4 hours after any rate change POCT-GLUCOSE [id number] 12:03:00 Test Item Value Reference Range Comments POC-GLUCOSE METER (BEAKER) 206 mg/dL 70-110 TESTE D AT [address] (test code = 1538) [place] [address] POCT-GLUCOSE [id number] 12:03:00 Test Item Value Reference Range Comments POC-GLUCOSE METER (BEAKER) 193 mg/dL 70-110 TESTE D AT [address] (test code = 1538) [place] [address] POCT-GLUCOSE [id number] 12:02:00 Test Item Value Reference Range Comments POC-GLUCOSE METER (BEAKER) 234 mg/dL 70-110 TESTE D AT [address] (test code = 1538) [place] [address] POCT-GLUCOSE [id number] 12:02:00 Test Item Value Reference Range Comments POC-GLUCOSE METER (BEAKER) 211 mg/dL 70-110 TESTE D AT [address] (test code = 1538) [place] [address] U/S, RENAL, [id number] 08:45:00Reason for exam:->CKDFINAL REPORT TECHNIQUE: Grayscale ultrasound [...] Signed: Rob Navarro MDReport Verified Date/Time: 08/02/2018 08:45:50 Reading Location: [address] Radiology Reading Room Electronically signedby: ROB NAVARRO MD on 08/02/2018 08:45 AMPOCT-GLUCOSE [id number] 08:25:00 Test Item Value Reference Range Comments POC-GLUCOSE METER (BEAKER) 237 mg/dL 70-110 TESTE D AT [address] (test code = 1538) [place] [address] [id number] 08:19:00 Test Item Value Reference Range Comments PARTIAL THROMBOPLASTIN TIME (BEAKER) (test code 38.2 seconds 22.5-36.0 = 760) 4 hours after the start of continuous infusion and 4 hours after any rate change POCT-GLUCOSE [id number] 07:14:00 Test Item Value Reference Range Comments POC-GLUCOSE METER (BEAKER) 246 mg/dL 70-110 TESTE D AT [address] (test code = 1538) [place] [address] COMPREHENSIVE METABOLIC [id number] 04:58:00 Test Item Value Reference Range Comments TOTAL PROTEIN (BEAKER) 5.5 gm/dL 6.0-8.3 Specimen slightly (test code = 770) hemolyzed ALBUMIN (BEAKER) (test 3.1 g/dL 3.5-5.0 Specimen slightly code = 1145) hemolyzed ALKALINE PHOSPHATASE 54 U/L 40-150 (BEAKER) (test code = 346) BILIRUBIN TOTAL (BEAKER) 0.7 mg/dL 0.2-1.2 Specime n slightly (test code = 377) hemolyzed SODIUM (BEAKER) (test code 135 meq/L 136-145 = 381) POTASSIUM (BEAKER) (test 4.8 meq/L 3.5-5.1 Specime n slightly code = 379) hemolyzed CHLORIDE (BEAKER) (test 108 meq/L 98-107 code = 382) CO2 (BEAKER) (test code = 18 meq/L 22-29 355) BLOOD UREA NITROGEN 57 mg/dL 7-21 (BEAKER) (test code = 354) CREATININE (BEAKER) (test 2.27 mg/dL 0.57-1.25 Specim en slightly code = 358) hemolyzed GLUCOSE RANDOM (BEAKER) 289 mg/dL 70-105 (test code = 652) CALCIUM (BEAKER) (test 8.6 mg/dL 8.4-10.2 code = 697) AST (SGOT) (BEAKER) (test 94 U/L 5-34 Specim en slightly code = 353) hemolyzed ALT (SGPT) (BEAKER) (test 20 U/L 6-55 Specim en slightly code = 347) hemolyzed EGFR (BEAKER) (test code = 21 mL/min/1.73 sq m E STIMATED GFR IS NOT 1092) ACCURATE CREA TININE CLEARANCE IN PRE DICTING GLOMERULAR FILTR ATION RATE. ESTIMATED GFR IS NOT APPLICABLE F OR DIALYSIS PATIENT S. [id number] 04:52:00 Test Item Value Reference Range Comments PARTIAL THROMBOPLASTIN TIME (BEAKER) (test code 37.5 seconds 22.5-36.0 = 760) 4 hours after the start of continuous infusion and 4 hours after any rate change RAD, CHEST, 1 VIEW, NON [id number] 04:44:00Reason for exam:->impella positionShould this be performed at the bedside?->YesFINAL REPORT RAD, CHEST, 1 VIEW, NON DEPT INDICATION: impella position COMPARI SON: August 01, 2018 FINDINGS: Portable frontal view of the chest. IMPRESSION: Support Lines: Impella device tip projects over the left ventricle with proximal marker at the level of the aortic arch.Lungs and pleura: Interval increase in bilateral interstitial and parenchymal opacities, likely pulmonary edema or possibly pneumonia. Small pleural effusions, greater on the right suspected. No pneumothorax.Heart and mediastinum: Stable cardiomediastinal contour. Additional findings: None. Signed: Ochoa Fry MDReport Verified Date/Time: 08/02/2018 04:44:47 B-TYPE NATRIURETIC FACTOR (BNP)2018-08-02 04:41:00 Test Item Value Reference Range Comments B-TYPE NATRIURETIC PEPTIDE (BEAKER) (test code = 1452 pg/mL 0-100 700) [id number] 04:40:00 Test Item Value Reference Range Comments MAGNESIUM (BEAKER) (test code = 2.0 mg/dL 1.6-2.6 Specimen slightly hemolyzed 627) [id number] 04:40:00 Test Item Value Reference Range Comments PHOSPHORUS (BEAKER) (test code 4.7 mg/dL 2.3-4.7 S pecimen slightly hemolyzed = 604) URIC [id number] 04:40:00 Test Item Value Reference Range Comments URIC ACID (BEAKER) (test code = 9.1 mg/dL 2.6-7.2 Specimen slightly hemolyzed 773) LACTIC ACID, [id number] 04:31:00 Test Item Value Reference Range Comments LACTATE BLOOD ARTERIAL (2) 0.9 mmol/L 0.5-2.2 Speci men slightly hemolyzed (BEAKER) (test code = 2874) BLOOD GAS, [id number] 04:25:00 Test Item Value Reference Range Comments PH ARTERIAL (BEAKER) (test code = 383) 7.31 7.35-7.45 PCO2 ARTERIAL (BEAKER) (test code = 384) 40 mmHg 35-45 PO2 ARTERIAL (BEAKER) (test code = 385) 90 mmHg 80-90 O2 SATURATION ARTERIAL (BEAKER) (test code = 96.3 % 96. 0-97.0 386) HCO3 ARTERIAL (BEAKER) (test code = 388) 20 mmol/L 21-29 BASE EXCESS ARTERIAL (BEAKER) (test code = 387) -6.1 mmol/L -2.0-3.0 PATIENT TEMPERATURE (BEAKER) (test code = 1818) 36.7 C FIO2 (BEAKER) (test code = 1819) 36.0 % GLUCOSE-STAT [id number] 04:25:00 Test Item Value Reference Range Comments GLUCOSE RANDOM (BEAKER) (test code = 652) 272 mg/dL 70-110 HGB/HCT (H&H) - STAT [id number] 04:25:00 Test Item Value Reference Range Comments HEMOGLOBIN (BEAKER) (test code = 410) 10.9 g/dL 12.0-15.0 HEMATOCRIT (BEAKER) (test code = 411) 32.0 % 36.0-45.0 CBC W/PLT COUNT & AUTO [id number] 04:24:00 Test Item Value Reference Range Comments WHITE BLOOD CELL COUNT (BEAKER) (test code = 14.8 K/ L 3.5 -10.5 775) RED BLOOD CELL COUNT (BEAKER) (test code = 761) 3.43 M/ L 3.93-5.22 HEMOGLOBIN (BEAKER) (test code = 410) 10.3 GM/DL 11.2-15.7 HEMATOCRIT (BEAKER) (test code = 411) 32.3 % 34.1-44.9 MEAN CORPUSCULAR VOLUME (BEAKER) (test code = 94.2 fL 79 .4-94.8 753) MEAN CORPUSCULAR HEMOGLOBIN (BEAKER) (test code 30.0 pg 25.6-32.2 = 751) MEAN CORPUSCULAR HEMOGLOBIN CONC (BEAKER) (test 31.9 GM/DL 32.2-35.5 code = 752) RED CELL DISTRIBUTION WIDTH (BEAKER) (test code 13.2 % 11.7-14.4 = 412) PLATELET COUNT (BEAKER) (test code = 756) 171 K/CU MM 150-45 0 MEAN PLATELET VOLUME (BEAKER) (test code = 754) 10.1 fL 9.4-12.3 NUCLEATED RED BLOOD CELLS (BEAKER) (test code = 0 /100 WBC 0-0 413) NEUTROPHILS RELATIVE PERCENT (BEAKER) (test code 84 % = 429) LYMPHOCYTES RELATIVE PERCENT (BEAKER) (test code 9 % = 430) MONOCYTES RELATIVE PERCENT (BEAKER) (test code = 7 % 431) EOSINOPHILS RELATIVE PERCENT (BEAKER) (test code 0 % = 432) BASOPHILS RELATIVE PERCENT (BEAKER) (test code = 0 % 437) NEUTROPHILS ABSOLUTE COUNT (BEAKER) (test code = 12.38 K/ L 1.56-6.13 670) LYMPHOCYTES ABSOLUTE COUNT (BEAKER) (test code = 1.30 K/ L 1.18-3.74 414) MONOCYTES ABSOLUTE COUNT (BEAKER) (test code = 1.04 K/ L 0 .24-0.36 415) EOSINOPHILS ABSOLUTE COUNT (BEAKER) (test code = 0.00 K/ L 0.04-0.36 416) BASOPHILS ABSOLUTE COUNT (BEAKER) (test code = 0.02 K/ L 0 .01-0.08 417) IMMATURE GRANULOCYTES-RELATIVE PERCENT (BEAKER) 1 % 0-1 (test code = 2801) CALCIUM, [id number] 04:22:00 Test Item Value Reference Range Comments CALCIUM IONIZED (BEAKER) (test code = 698) 1.20 mmol/L 1.12- 1.27 PH, BLOOD (BEAKER) (test code = 1810) 7.31 SODIUM NA-STAT [id number] 04:21:00 Test Item Value Reference Range Comments SODIUM (BEAKER) (test code = 381) 136 meq/L 135-148 POTASSIUM-STAT [id number] 04:21:00 Test Item Value Reference Range Comments POTASSIUM (BEAKER) (test code = 379) 4.6 meq/L 3.6-5.5 LACTIC ACID, [id number] 00:13:00 Test Item Value Reference Range Comments LACTATE BLOOD ARTERIAL (2) (BEAKER) (test code = 0.7 mmol/L 0.5-2.2 2874) SODIUM NA-STAT [id number] 23:59:00 Test Item Value Reference Range Comments SODIUM (BEAKER) (test code = 381) 136 meq/L 135-148 POTASSIUM-STAT [id number] 23:59:00 Test Item Value Reference Range Comments POTASSIUM (BEAKER) (test code = 379) 4.8 meq/L 3.6-5.5 BLOOD GAS, [id number] 23:59:00 Test Item Value Reference Range Comments PH ARTERIAL (BEAKER) (test code = 383) 7.31 7.35-7.45 PCO2 ARTERIAL (BEAKER) (test code = 384) 42 mmHg 35-45 PO2 ARTERIAL (BEAKER) (test code = 385) 78 mmHg 80-90 O2 SATURATION ARTERIAL (BEAKER) (test code = 94.7 % 96. 0-97.0 386) HCO3 ARTERIAL (BEAKER) (test code = 388) 21 mmol/L 21-29 BASE EXCESS ARTERIAL (BEAKER) (test code = 387) -5.2 mmol/L -2.0-3.0 PATIENT TEMPERATURE (BEAKER) (test code = 1818) 36.7 C FIO2 (BEAKER) (test code = 1819) 36.0 % GLUCOSE-STAT [id number] 23:59:00 Test Item Value Reference Range Comments GLUCOSE RANDOM (BEAKER) (test code = 652) 275 mg/dL 70-110 HGB/HCT (H&H) - STAT [id number] 23:59:00 Test Item Value Reference Range Comments HEMOGLOBIN (BEAKER) (test code = 410) 11.3 g/dL 12.0-15.0 HEMATOCRIT (BEAKER) (test code = 411) 33.0 % 36.0-45.0 [id number] 21:53:00 Test Item Value Reference Range Comments PARTIAL THROMBOPLASTIN TIME (BEAKER) (test code 63.4 seconds 22.5-36.0 = 760) 4 hours after the start of continuous infusion and 4 hours after any rate change COMPREHENSIVE METABOLIC [id number] 19:43:00 Test Item Value Reference Range Comments TOTAL PROTEIN (BEAKER) 5.8 gm/dL 6.0-8.3 Specimen slightly (test code = 770) hemolyzed ALBUMIN (BEAKER) (test 3.3 g/dL 3.5-5.0 Specimen slightly code = 1145) hemolyzed ALKALINE PHOSPHATASE 57 U/L 40-150 (BEAKER) (test code = 346) BILIRUBIN TOTAL (BEAKER) 0.9 mg/dL 0.2-1.2 Specime n slightly (test code = 377) hemolyzed SODIUM (BEAKER) (test code 137 meq/L 136-145 = 381) POTASSIUM (BEAKER) (test 4.8 meq/L 3.5-5.1 Specime n slightly code = 379) hemolyzed CHLORIDE (BEAKER) (test 109 meq/L 98-107 code = 382) CO2 (BEAKER) (test code = 20 meq/L 22-29 355) BLOOD UREA NITROGEN 56 mg/dL 7-21 (BEAKER) (test code = 354) CREATININE (BEAKER) (test 2.26 mg/dL 0.57-1.25 Specim en slightly code = 358) hemolyzed GLUCOSE RANDOM (BEAKER) 235 mg/dL 70-105 (test code = 652) CALCIUM (BEAKER) (test 9.2 mg/dL 8.4-10.2 code = 697) AST (SGOT) (BEAKER) (test 27 U/L 5-34 Specim en slightly code = 353) hemolyzed ALT (SGPT) (BEAKER) (test 13 U/L 6-55 Specim en slightly code = 347) hemolyzed EGFR (BEAKER) (test code = 21 mL/min/1.73 sq m E STIMATED GFR IS NOT 1092) ACCURATE CREA TININE CLEARANCE IN PRE DICTING GLOMERULAR FILTR ATION RATE. ESTIMATED GFR IS NOT APPLICABLE F OR DIALYSIS PATIENT S. Call k > 5, [id number] 19:41:00 Test Item Value Reference Range Comments SODIUM (BEAKER) (test code = 137 meq/L 136-145 381) POTASSIUM (BEAKER) (test code = 4.8 meq/L 3.5-5.1 Specimen slightly hemolyzed 379) CHLORIDE (BEAKER) (test code = 109 meq/L 98-107 382) CO2 (BEAKER) (test code = 355) 20 meq/L - Call k > 5, [id number] 19:37:00 Test Item Value Reference Range Comments PROTIME (BEAKER) (test code = 759) 33.9 seconds 11.9-14.2 INR (BEAKER) (test code = 370) 3.6 <=5.9 PARTIAL THROMBOPLASTIN TIME (BEAKER) (test code 85.5 seconds 22.5-36.0 = 760) Effective 07/18/2018: PT Reference Range ChangeNew: 11.9-14.2 Previous: 11.7- 14.7RECOMMENDED COUMADIN/WARFARIN INR THERAPY RANGESSTANDARD DOSE: 2.0-3.0 Includes: PROPHYLAXIS for venous thrombosis, systemic embolization; TREATMENT for venous thrombosis and/or pulmonary embolus.HIGH RISK: Target INR is2.5-3.5 for patients wiht mechanical heart valves.[id number] 19:36:00 Test Item Value Reference Range Comments FIBRINOGEN LEVEL (BEAKER) (test code = 658) 336 mg/dl 225- 434 LACTIC ACID, [id number] 19:34:00 Test Item Value Reference Range Comments LACTATE BLOOD ARTERIAL (2) 1.3 mmol/L 0.5-2.2 Speci men slightly hemolyzed (BEAKER) (test code = 2874) CBC (HEMOGRAM ONLY)[id number] 19:23:00 Test Item Value Reference Range Comments WHITE BLOOD CELL COUNT (BEAKER) (test code = 14.1 K/ L 3.5 -10.5 775) RED BLOOD CELL COUNT (BEAKER) (test code = 761) 3.68 M/ L 3.93-5.22 HEMOGLOBIN (BEAKER) (test code = 410) 11.3 GM/DL 11.2-15.7 HEMATOCRIT (BEAKER) (test code = 411) 34.6 % 34.1-44.9 MEAN CORPUSCULAR VOLUME (BEAKER) (test code = 94.0 fL 79 .4-94.8 753) MEAN CORPUSCULAR HEMOGLOBIN (BEAKER) (test code 30.7 pg 25.6-32.2 = 751) MEAN CORPUSCULAR HEMOGLOBIN CONC (BEAKER) (test 32.7 GM/DL 32.2-35.5 code = 752) RED CELL DISTRIBUTION WIDTH (BEAKER) (test code 13.1 % 11.7-14.4 = 412) PLATELET COUNT (BEAKER) (test code = 756) 207 K/CU MM 150-45 0 MEAN PLATELET VOLUME (BEAKER) (test code = 754) 9.9 fL 9.4-12.3 NUCLEATED RED BLOOD CELLS (BEAKER) (test code = 0 /100 WBC 0-0 413) BLOOD GAS, [id number] 19:16:00 Test Item Value Reference Range Comments PH ARTERIAL (BEAKER) (test code = 383) 7.35 7.35-7.45 PCO2 ARTERIAL (BEAKER) (test code = 384) 39 mmHg 35-45 PO2 ARTERIAL (BEAKER) (test code = 385) 50 mmHg 80-90 O2 SATURATION ARTERIAL (BEAKER) (test code = 84.5 % 96. 0-97.0 386) HCO3 ARTERIAL (BEAKER) (test code = 388) 21 mmol/L 21-29 BASE EXCESS ARTERIAL (BEAKER) (test code = 387) -4.5 mmol/L -2.0-3.0 PATIENT TEMPERATURE (BEAKER) (test code = 1818) 36.7 C FIO2 (BEAKER) (test code = 1819) 36.0 % GLUCOSE-STAT [id number] 19:16:00 Test Item Value Reference Range Comments GLUCOSE RANDOM (BEAKER) (test code = 652) 231 mg/dL 70-110 HGB/HCT (H&H) - STAT [id number] 19:16:00 Test Item Value Reference Range Comments HEMOGLOBIN (BEAKER) (test code = 410) 11.5 g/dL 12.0-15.0 HEMATOCRIT (BEAKER) (test code = 411) 34.0 % 36.0-45.0 CALCIUM, [id number] 19:15:00 Test Item Value Reference Range Comments CALCIUM IONIZED (BEAKER) (test code = 698) 1.26 mmol/L 1.12- 1.27 PH, BLOOD (BEAKER) (test code = 1810) 7.35 OXYGEN SATURATION, [id number] 19:14:00 Test Item Value Reference Range Comments O2 SATURATION (MEASURED) (BEAKER) (test code = 1455) 41.9 % SODIUM NA-STAT [id number] 19:14:00 Test Item Value Reference Range Comments SODIUM (BEAKER) (test code = 381) 138 meq/L 135-148 POTASSIUM-STAT [id number] 19:14:00 Test Item Value Reference Range Comments POTASSIUM (BEAKER) (test code = 379) 4.7 meq/L 3.6-5.5 [id number] 16:45:00 Test Item Value Reference Range Comments ACTIVATED CLOTTING TIME 389 sec TESTED A T [facility] [address] (BEAKER) (test code = 441) [place] [address] HEMOGLOBIN AND [id number] 16:38:00 Test Item Value Reference Range Comments HEMOGLOBIN (BEAKER) (test code = 410) 10.1 GM/DL 11.2-15.7 HEMATOCRIT (BEAKER) (test code = 411) 31.6 % 34.1-44.9 PLATELET AGGREGATION: FUNCTION [id number] 16:05:00 Test Item Value Reference Range Comments WEAK ADP RESULT(BEAKER) (test 34 % 60-91 code = 2135) PLATELET FUNCTION SCREEN 0-39% indicates marked platelet INTERP (BEAKER) (test code = dysfunction 2173) [id number] Talia Villarreal MD (BEAKER) (test code = 2622) (electronic signature) PLATELET COUNT AGG (BEAKER) 186 K/CU MM 150-450 (test code = 2656) Platelet Function Screen results may be falsely low with platelet counts<100,000/cu mm.[id number] 15:02:00 Test Item Value Reference Range Comments ACTIVATED CLOTTING TIME 411 sec TESTED A T [facility] [address] [facility] (BEAKER) (test code = 441) [place] [address] POCT-GLUCOSE [id number] 12:17:00 Test Item Value Reference Range Comments POC-GLUCOSE METER (BEAKER) 103 mg/dL 70-110 TESTE D AT [facility] [address] [facility] (test code = 1538) [facility] [address] POCT-GLUCOSE [id number] 08:18:00 Test Item Value Reference Range Comments POC-GLUCOSE METER (BEAKER) 388 mg/dL 70-110 TESTE D AT [facility] [address] [facility] (test code = 1538) [facility] [address] HEPATIC FUNCTION [id number] 08:09:00 Test Item Value Reference Range Comments TOTAL PROTEIN (BEAKER) (test 6.2 gm/dL 6.0-8.3 Spe cimen slightly hemolyzed code = 770) ALBUMIN (BEAKER) (test code = 3.4 g/dL 3.5-5.0 Sp ecimen slightly hemolyzed 1145) BILIRUBIN TOTAL (BEAKER) (test 0.4 mg/dL 0.2-1.2 S pecimen slightly hemolyzed code = 377) BILIRUBIN DIRECT (BEAKER) (test 0.1 mg/dL 0.1-0.5 Specimen slightly hemolyzed code = 706) ALKALINE PHOSPHATASE (BEAKER) 59 U/L 40-150 (test code = 346) AST (SGOT) (BEAKER) (test code 19 U/L 5-34 S pecimen slightly hemolyzed = 353) ALT (SGPT) (BEAKER) (test code 10 U/L 6-55 S pecimen slightly hemolyzed = 347) TROPONIN [id number] 06:39:00 Test Item Value Reference Range Comments TROPONIN I (BEAKER) (test code = 397) 0.26 ng/mL 0.00-0.03 Troponin I (TnI) levels [...] acidosis, acute neurological disease, and persistent tachyarrhythmia.POCT-GLUCOSE [id number] 06:36:00 Test Item Value Reference Range Comments POC-GLUCOSE METER (BEAKER) 415 mg/dL 70-110 TESTE D AT [facility] [address] [facility] (test code = 1538) [facility] [address] BASIC METABOLIC [id number] 06:10:00 Test Item Value Reference Range Comments SODIUM (BEAKER) (test 135 meq/L 136-145 code = 381) POTASSIUM (BEAKER) (test 4.9 meq/L 3.5-5.1 Specime n slightly code = 379) hemolyzed CHLORIDE (BEAKER) (test 104 meq/L 98-107 code = 382) CO2 (BEAKER) (test code = 21 meq/L 22-29 355) BLOOD UREA NITROGEN 53 mg/dL 7-21 (BEAKER) (test code = 354) CREATININE (BEAKER) (test 2.28 mg/dL 0.57-1.25 Specim en slightly code = 358) hemolyzed GLUCOSE RANDOM (BEAKER) 473 mg/dL 70-105 (test code = 652) CALCIUM (BEAKER) (test 8.7 mg/dL 8.4-10.2 code = 697) EGFR (BEAKER) (test code 21 mL/min/1.73 sq m EST IMATED GFR IS NOT = 1092) ACCURATE CREA TININE CLEARANCE IN PRE DICTING GLOMERULAR FILTR ATION RATE. ESTIMATED GFR IS NOT APPLICABLE F OR DIALYSIS PATIENT S. [id number] 06:03:00 Test Item Value Reference Range Comments MAGNESIUM (BEAKER) (test code = 2.2 mg/dL 1.6-2.6 Specimen slightly hemolyzed 627) THROMBIN [id number] 05:09:00 Test Item Value Reference Range Comments THROMBIN TIME (BEAKER) (test code = 550) 64.9 secs 13.8-20 .0 Draw baseline aPTT prior to [id number] 05:08:00 Test Item Value Reference Range Comments PARTIAL THROMBOPLASTIN TIME (BEAKER) (test code 43.1 seconds 22.5-36.0 = 760) Draw baseline aPTT prior to infusionPROTHROMBIN [id number] 05:07:00 Test Item Value Reference Range Comments PROTIME (BEAKER) (test code = 759) 15.0 seconds 11.9-14.2 INR (BEAKER) (test code = 370) 1.2 <=5.9 Effective 07/18/2018: PT Reference Range ChangeNew: 11.9-14.2 Previous: 11.7- 14.7RECOMMENDED COUMADIN/WARFARIN INR THERAPY RANGESSTANDARD DOSE: 2.0-3.0 Includes: PROPHYLAXIS for venous thrombosis, systemic embolization; TREATMENT for venous thrombosis and/or pulmonary embolus.HIGH RISK: Target INR is2.5-3.5 for patients wiht mechanical heart valves.Draw baseline aPTT prior to infusion CBC W/PLT COUNT & AUTO [id number] 04:59:00 Test Item Value Reference Range Comments WHITE BLOOD CELL COUNT (BEAKER) (test code = 7.0 K/ L 3.5 -10.5 775) RED BLOOD CELL COUNT (BEAKER) (test code = 761) 3.82 M/ L 3.93-5.22 HEMOGLOBIN (BEAKER) (test code = 410) 11.7 GM/DL 11.2-15.7 HEMATOCRIT (BEAKER) (test code = 411) 35.9 % 34.1-44.9 MEAN CORPUSCULAR VOLUME (BEAKER) (test code = 94.0 fL 79 .4-94.8 753) MEAN CORPUSCULAR HEMOGLOBIN (BEAKER) (test code 30.6 pg 25.6-32.2 = 751) MEAN CORPUSCULAR HEMOGLOBIN CONC (BEAKER) (test 32.6 GM/DL 32.2-35.5 code = 752) RED CELL DISTRIBUTION WIDTH (BEAKER) (test code 12.8 % 11.7-14.4 = 412) PLATELET COUNT (BEAKER) (test code = 756) 225 K/CU MM 150-45 0 MEAN PLATELET VOLUME (BEAKER) (test code = 754) 10.5 fL 9.4-12.3 NUCLEATED RED BLOOD CELLS (BEAKER) (test code = 0 /100 WBC 0-0 413) NEUTROPHILS RELATIVE PERCENT (BEAKER) (test code 87 % = 429) LYMPHOCYTES RELATIVE PERCENT (BEAKER) (test code 10 % = 430) MONOCYTES RELATIVE PERCENT (BEAKER) (test code = 2 % 431) EOSINOPHILS RELATIVE PERCENT (BEAKER) (test code 0 % = 432) BASOPHILS RELATIVE PERCENT (BEAKER) (test code = 0 % 437) NEUTROPHILS ABSOLUTE COUNT (BEAKER) (test code = 6.10 K/ L 1.56-6.13 670) LYMPHOCYTES ABSOLUTE COUNT (BEAKER) (test code = 0.72 K/ L 1.18-3.74 414) MONOCYTES ABSOLUTE COUNT (BEAKER) (test code = 0.14 K/ L 0 .24-0.36 415) EOSINOPHILS ABSOLUTE COUNT (BEAKER) (test code = 0.00 K/ L 0.04-0.36 416) BASOPHILS ABSOLUTE COUNT (BEAKER) (test code = 0.01 K/ L 0 .01-0.08 417) IMMATURE GRANULOCYTES-RELATIVE PERCENT (BEAKER) 1 % 0-1 (test code = 2801) RAD, CHEST, 1 VIEW, NON [id number] 04:33:00Reason for exam:->preopShould this be performed at the bedside?->YesFINAL REPORT RAD, CHEST, 1 VIEW, NON DEPT INDICATION: preop COMPARISON: Prior day's exam FINDINGS: Portable frontal view of the chest. IMPRESSION: Support Lines: Stable. Lungs and pleura: Unchanged airspace and pleural opacities. No pneumothorax.Heart and mediastinum: Stable contours. Additional findings: None. Signed: [facility] Verified Date/Time: 08/01/2018 04:33:15 RAD, CHEST, 1 VIEW, NON [id number] 00:02:00Reason for exam:->Intraaortic balloon pump insertionShould this [...] of the cervical spine. Signed: Socorro Méndez [facility] Verified Date/Time: 08/01/2018 00:02:19 Electronically signed by: SOCORRO MÉNDEZ MD on08/01/2018 12:02 AMTSH/FREE T4 IF [id number] 21:34:00 Test Item Value Reference Range Comments THYROID STIMULATING HORMONE (BEAKER) (test code 0.99 uIU/mL 0.35-4.94 = 772) TROPONIN [id number] 21:26:00 Test Item Value Reference Range Comments TROPONIN I (BEAKER) (test code = 397) 0.28 ng/mL 0.00-0.03 Troponin I (TnI) levels [...] disease, and persistent tachyarrhythmia.B-TYPE NATRIURETIC FACTOR (BNP) 2018-07-31 21:20:00 Test Item Value Reference Range Comments B-TYPE NATRIURETIC PEPTIDE (BEAKER) (test code = 633 pg/mL 0-100 700) RAD, CHEST, 1 VIEW, NON [id number] 21:20:00Reason for exam:->unstable anginaShould this be performed at the bedside?->YesFINAL REPORT Portable chest. HISTORY: Unstable angina. COMPARISON STUDY: None available. FINDINGS: The cardiac size is enlarged. There are bilateral increased interstitial markings with some atelectasis or fibrosis in the lung bases. No pleural effusion or pneumothorax is seen. Degenerative changes and osteopenia are seen. IMPRESSION: Cardiomegaly with increased interstitial markings. Signed: Rui Gillis MDR[facility]ort Verified Date/Time: 07/31/2018 21:20:52 Reading Location: [facility] C0W Consult Reading Room [facility] METABOLIC [id number] 21:18:00 Test Item Value Reference Range Comments SODIUM (BEAKER) (test 137 meq/L 136-145 code = 381) POTASSIUM (BEAKER) (test 4.6 meq/L 3.5-5.1 code = 379) CHLORIDE (BEAKER) (test 104 meq/L 98-107 code = 382) CO2 (BEAKER) (test code = 25 meq/L 22-29 355) BLOOD UREA NITROGEN 47 mg/dL 7-21 (BEAKER) (test code = 354) CREATININE (BEAKER) (test 2.18 mg/dL 0.57-1.25 code = 358) GLUCOSE RANDOM (BEAKER) 223 mg/dL 70-105 (test code = 652) CALCIUM (BEAKER) (test 9.1 mg/dL 8.4-10.2 code = 697) EGFR (BEAKER) (test code 22 mL/min/1.73 sq m EST IMATED GFR IS NOT = 1092) ACCURATE CREA TININE CLEARANCE IN PRE DICTING GLOMERULAR FILTR ATION RATE. ESTIMATED GFR IS NOT APPLICABLE F OR DIALYSIS PATIENT S. HEPATIC FUNCTION [id number] 21:15:00 Test Item Value Reference Range Comments TOTAL PROTEIN (BEAKER) (test code = 770) 6.8 gm/dL 6.0-8.3 ALBUMIN (BEAKER) (test code = 1145) 3.8 g/dL 3.5-5.0 BILIRUBIN TOTAL (BEAKER) (test code = 377) 0.6 mg/dL 0.2-1 .2 BILIRUBIN DIRECT (BEAKER) (test code = 706) 0.3 mg/dL 0.1- 0.5 ALKALINE PHOSPHATASE (BEAKER) (test code = 346) 67 U/L 40-150 AST (SGOT) (BEAKER) (test code = 353) 14 U/L 5-34 ALT (SGPT) (BEAKER) (test code = 347) 10 U/L 6-55 [id number] 20:57:00 Test Item Value Reference Range Comments PARTIAL THROMBOPLASTIN TIME (BEAKER) (test code 27.7 seconds 22.5-36.0 = 760) PROTHROMBIN [id number] 20:56:00 Test Item Value Reference Range Comments PROTIME (BEAKER) (test code = 759) 13.1 seconds 11.9-14.2 INR (BEAKER) (test code = 370) 1.0 <=5.9 Effective 07/18/2018: PT Reference Range ChangeNew: 11.9-14.2 Previous: 11.7- 14.7RECOMMENDED COUMADIN/WARFARIN INR THERAPY RANGESSTANDARD DOSE: 2.0-3.0 Includes: PROPHYLAXIS for venous thrombosis, systemic embolization; TREATMENT for venous thrombosis and/or pulmonary embolus.HIGH RISK: Target INR is2.5-3.5 for patients wiht mechanical heart valves.CBC W/PLT COUNT & AUTO [id number] 20:50:00 Test Item Value Reference Range Comments WHITE BLOOD CELL COUNT (BEAKER) (test code = 8.4 K/ L 3.5 -10.5 775) RED BLOOD CELL COUNT (BEAKER) (test code = 761) 4.23 M/ L 3.93-5.22 HEMOGLOBIN (BEAKER) (test code = 410) 13.0 GM/DL 11.2-15.7 HEMATOCRIT (BEAKER) (test code = 411) 41.2 % 34.1-44.9 MEAN CORPUSCULAR VOLUME (BEAKER) (test code = 97.4 fL 79 .4-94.8 753) MEAN CORPUSCULAR HEMOGLOBIN (BEAKER) (test code 30.7 pg 25.6-32.2 = 751) MEAN CORPUSCULAR HEMOGLOBIN CONC (BEAKER) (test 31.6 GM/DL 32.2-35.5 code = 752) RED CELL DISTRIBUTION WIDTH (BEAKER) (test code 12.8 % 11.7-14.4 = 412) PLATELET COUNT (BEAKER) (test code = 756) 230 K/CU MM 150-45 0 MEAN PLATELET VOLUME (BEAKER) (test code = 754) 9.9 fL 9.4-12.3 NUCLEATED RED BLOOD CELLS (BEAKER) (test code = 0 /100 WBC 0-0 413) NEUTROPHILS RELATIVE PERCENT (BEAKER) (test code 87 % = 429) LYMPHOCYTES RELATIVE PERCENT (BEAKER) (test code 12 % = 430) MONOCYTES RELATIVE PERCENT (BEAKER) (test code = 1 % 431) EOSINOPHILS RELATIVE PERCENT (BEAKER) (test code 0 % = 432) BASOPHILS RELATIVE PERCENT (BEAKER) (test code = 0 % 437) NEUTROPHILS ABSOLUTE COUNT (BEAKER) (test code = 7.32 K/ L 1.56-6.13 670) LYMPHOCYTES ABSOLUTE COUNT (BEAKER) (test code = 0.98 K/ L 1.18-3.74 414) MONOCYTES ABSOLUTE COUNT (BEAKER) (test code = 0.08 K/ L 0 .24-0.36 415) EOSINOPHILS ABSOLUTE COUNT (BEAKER) (test code = 0.00 K/ L 0.04-0.36 416) BASOPHILS ABSOLUTE COUNT (BEAKER) (test code = 0.01 K/ L 0 .01-0.08 417) IMMATURE GRANULOCYTES-RELATIVE PERCENT (BEAKER) 0 % 0-1 (test code = 2801) [id number] 19:45:00 Test Item Value Reference Range Comments TROPONIN-I (test code = 0.18 ng/mL 0.00-0.05 RESULTS CALLED TO [place]ITAR[place]OPI) [place] [address]/28/18.Tolenti no,MarthaCRITICA L VALUE READ [place] K BY NURSE AND VERIFIED BY TECH ? Y<0.05 Normal0.06 - 0.39 Consistent with circulating Troponin with possible Myocard ial injury.>0.40 Cons istent with Myocardial injur y extensive enou gh to conform with AMI as defined by WHO. COMPREHENSIVE METABOLIC [id number] 16:08:00 Test Item Value Reference Range Comments SODIUM (test code = NA) 139 mmol/L 136-145 POTASSIUM (test code = K) 4.3 mmol/L 3.5-5.1 CHLORIDE (test code = CL) 106 mmol/L 98-107 CARBON DIOXIDE (test code = 28 mmol/L 21-32 CO2) GLUCOSE (test code = GLU) 255 mg/dL 65-99 BLOOD UREA NITROGEN (test 47 mg/dL 7-18 code = BUN) GLOMERULAR FILTRATION RATE 20 Repor ting units: (test code = GFR) ml/min/1.73m\\S \\2 (Modified MDRD Formula)If age < 18 years, GFR is no t applicable. KD/DOQI Clinical Practice Guidelines: Stag e 1: Kidney damage w/normal or increased GFR >90Stage 2: Kidney damage w/mild de crease in GFR 60 - 89Stag e 3: Moderate decrease in GFR 30 - 59Stage 4: Severe decrease in GFR 15 - 29Stag e 5: Kidney failure < 15 (or dialysis) CREATININE (test code = 2.5 mg/dL 0.6-1.0 CREAT) TOTAL PROTEIN (test code = 7.6 g/dL 6.4-8.2 PROT) ALBUMIN (test code = ALB) 3.9 g/dL 3.4-5.0 GLOBULIN (test code = GLOB) 3.7 gm/dL 2.3-3.5 ALBUMIN/GLOBULIN RATIO (test 1.1 1.5-2.2 code = A/G) CALCIUM (test code = CA) 9.7 mg/dL 7.8-10.9 BILIRUBIN TOTAL (test code = 0.3 mg/dL 0.0-1.1 BILT) SGOT/AST (test code = AST) 19 U/L 15-37 Repor ting units: International Un its/L SGPT/ALT (test code = ALT) 18 U/L 10-30 Repor ting units: International Un its/L ALKALINE PHOSPHATASE TOTAL 119 U/L 45-117 (test code = ALKP) - XR CHEST 1 [id number] 15:43:00 FAX: Rhett Jo [phone] Camps: [address]IM[address] St: REG Name: HENRIQUE ARECHIGA [facility] : 1940 Age/S: 78/F [address] Unit #: [id number] Loc: VR.ER [place], [place] [address] Phys: Rhett Sams MD Acct: [id number] Dis Date: Status: REG ER PHONE #: [phone] Exam Date: 07/28/2018 1527 FAX #: [phone] Reason: CP EXAMS: CPT CODE: [id number] XR CHEST 1 V [id number] Examination: Chest 1 view Location code: S17 Comparison: None Discussion: Clinical history is remarkable for chest tightness. Cardiac silhouette is slightly enlarged, atherosclerotic change present. There are coarsened interstitial changes present bilaterally, mild bilateral parenchymal basilar scarring noted. Impression: 1. Coarsened interstitial changes with likely bilateral basilar parenchymal scarring. at 3905 Reported and signed by: YUAN BUNN M.D. CC: Rhett Sams MDTechnologist: HESHAM FONG RT,(R) ARRT Transcribed Date/Time/By: 07/28/2018 (5326) :[id number] Orig Print D/T: S: 07/28/2018 (4644) Automated exposure control, iterative reconstruction technique, and/oradjustment of mA and/or kV according to patient's size was utilizedfor optimum radiation dose reduction. PAGE 1 Signed Report TROPONIN I [id number] 15:37:00 Test Item Value Reference Range Comments TROPONIN I RAPID (test code 0.03 NG/ML 0.00-0.08 0.00 - 0.08 Normal0.09 - = TROPIRAP) 0.40 Indet erminate for AMI 0.41 and abo ve Compatible with AMI CHEMISTRY 8 [id number] 15:36:00 Test Item Value Reference Range Comments IONIZED CALCIUM (test code = CAIABG) 1.19 mmol/L 1.13-1.32 ISTAT-TCO2 VENOUS (test code = TCO2VP) 26 MMOL/L 24-30 ISTAT-HEMOGLOBIN (test code = HBP) 13.9 G/DL 12.0-16.0 ISTAT-HEMATOCRIT (test code = HCTP) 41 % 44.0-56.0 ISTAT-SODIUM (test code = NAP) 140 MMOL/L 136-145 ISTAT-POTASSIUM (test code = KP) 4.4 MMOL/L 3.5-5.1 ISTAT-CHLORIDE (test code = CLP) 102 MMOL/L 98-107 ISTAT GLUCOSE (test code = GLUP) 260 MG/DL 65-99 ISTAT-BUN (test code = BUNP) 47 MG/DL 7-18 BEDSIDE CREATININE (test code = CREATBED) 2.6 MG/DL 0.6-1. 0 CBC W/AUTO [id number] 15:34:00 Test Item Value Reference Range Comments WHITE BLOOD CELL (test code = WBC) 8.6 K/mm3 4.8-10.8 RED BLOOD CELL (test code = RBC) 4.37 M/mm3 4.2-5.4 HEMOGLOBIN (test code = HGB) 13.5 gm/DL 12.0-16.0 HEMATOCRIT (test code = HCT) 39.6 % 34.7-43.3 MEAN CELL VOLUME (test code = MCV) 90.6 fL 81-99 MEAN CELL HGB (test code = MCH) 30.9 pg 27-31 MEAN CELL HGB CONCETRATION (test code = MCHC) 34.1 gm/dL 33 -37 RED CELL DISTRIBUTION WIDTH (test code = RDW) 12.7 % 11 .5-14.5 PLATELET COUNT (test code = PLT) 217 X10(3) 130-400 MEAN PLATELET VOLUME (test code = MPV) 9.9 fL 9.4-12.4 NEUTROPHIL % (test code = NT%) 71.3 % 51.5-79.7 IMMATURE GRANULOCYTE % (test code = IG%) 0.500 % 0.108-0 .322 LYMPHOCYTE % (test code = LY%) 18.1 % 14-40 MONOCYTE % (test code = MO%) 7.2 % 4.0-10.2 EOSINOPHIL % (test code = EO%) 2.3 % 0-4.1 BASOPHIL % (test code = BA%) 0.6 % 0.1-0.7 NUCLEATED RBC % (test code = NRBC%) 0 % 0-0 NEUTROPHIL # (test code = NT#) 6.1 K/mm3 2.5-8.6 IMMATURE GRANULOCYTE # (test code = IG#) 0.040 K/mm3 0.0052- 0.0224 LYMPHOCYTE # (test code = LY#) 1.6 K/mm3 1.1-3.6 MONOCYTE # (test code = MO#) 0.6 K/mm3 0.3-0.9 EOSINOPHIL # (test code = EO#) 0.20 # 0.0-0.4 BASOPHIL # (test code = BA#) 0.05 K/mm3 0.0-0.2 NUCLEATED RBC # (test code = NRBC#) 0.00 K/mm3 0.00-0.20
--- OUTSIDE RECORDS SUMMARY | 2019-06-18 10:51 | XMS REPORT ---
[...] Code Onset Dates Condition Statu s Assessment Proteinuria, unspecified R80.9 Act diandra Assessment Left sided numbness R20.0 Active Assessment Hypertensive heart disease without I11.9 Active heart failure Assessment 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 Ac tive classified elsewhere Assessment Health long-term, active care Z78.9 Active coordination Assessment Chronic kidney disease, stage 4 N18.4 Active (severe) Assessment Type 2 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 Assessment Chronic systolic congestive heart I50.22 Active failure Assessment Need for home health care Z74.2 Ac tive Problem Type 2 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 Assessment Coronary artery disease involving I25.110 Active [place] coronary artery of [place] heart with unstable angina pectoris Problem 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 Ac tive classified elsewhere Problem Chronic kidney disease, stage 4 N18.4 Active (severe) Problem 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 knee Problem Hypertensive heart disease without I11.9 Active heart failure Problem 3-vessel coronary artery disease I25.10 Active Problem Coronary artery disease involving I25.110 Active [place] coronary artery of [place] heart with unstable angina pectoris Problem Proteinuria, unspecified R80.9 Act [place] Problem Cervical stenosis (uterine cervix) N88.2 Active Assessment H/O stroke without residual Z86.73 Active deficits Problem Stented coronary artery Z95.5 Acti ve Problem Mixed hyperlipidemia E78.2 Active Assessment [facility] current 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 Z79.4 Active Problem Pain, joint, knee, right M25.561 Act diandra Assessment 3-vessel coronary artery disease I25.10 Active Problem Primary osteoarthritis of left knee M17.12 Active Problem Adult BMI 36.0-36.9 kg/sq m Z68.36 Active Problem Acute pain of left knee M25.562 Acti ve Assessment Mixed hyperlipidemia E78.2 Active Problem At risk for falling Z91.81 Active Assessment History of coronary artery stent Z95.5 Active placement Problem Atherosclerosis of [place] coronary I25.10 Active artery Assessment Other osteoporosis M81.8 Active Problem Chronic kidney disease (CKD), stage N18.4 Active IV (severe) Assessment At risk for falling Z91.81 Active Problem Other osteoporosis M81.8 Active Assessment Adult BMI 36.0-36.9 kg/sq m Z68.36 Active Problem [facility] current 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 Z79.4 Active Assessment Cervical stenosis of spine M48.02 A ctive Problem Cervical stenosis of spine M48.02 A ctive Problem H/O stroke without residual Z86.73 Active deficits Problem Primary hypersomnia F51.11 Active Medications Medication Code Code Instructions Start End Status Dosage System Date Date Cyanocobalamin [facility] [address]-86 1000 MCG Active 1 tablet Orally Once a day BD Pen Needle [facility] 67303888273 31G X 5 MM Active USE Mini U/F DIRECTED Folic Acid [facility] 04950741353 1 MG Orally Active 1 tab let Once a day Carvedilol [facility] 73562607919 6.25 MG Oral Active TAKE 1 TABLET BY MOUTH TWICE A DAY Nitrostat [facility] 50459914063 0.4 MG Active as Sublingual 3 directed doses within 15 minutes PRN CHEST PAIN Lactobacillus NDC 0 Active not defined Calcitriol [facility] 82966897628 0.5 MCG Orally Active 1 capsule Once a day Thiamine HCl [facility] 29864946676 100 MG Orally Active 1 tablet Once a day Humalog [facility] 59538065229 100 UNIT/ML Active as Subcutaneous directed Lipitor [facility] 37033408631 80 MG Orally Active 1 table t Once a day Ferrous Sulfate [facility] 46690522277 325 (65 Fe) MG Activ e TAKE 1 Oral TABLET BY MOUTH TWICE A DAY Cranberry Extract [facility] [address] Active no t defined Bumetanide [facility] 39517498816 1 MG Oral Active TAKE 1 TABLET BY MOUTH TWICE A DAY Clopidogrel ND 30175621252 75 MG Orally Active 1 t ablet Bisulfate Once a day Tradjenta [facility] 48826423510 5 MG Orally Active 1 tabl et Once a day Plavix [facility] 18490575152 75 MG Orally Active 1 table t Once a day Vitamin D-3 [facility] 66799524005 5000 UNIT Active as Orally directed Tresiba FlexTouch [facility] 14250266238 200 UNIT/ML Active 10 units Subcutaneous daily Senna S [facility] 19262461472 8.6-50 MG Active 1 tablet Orally Once a in the day evening as needed Aspir-Low [facility] 96987573480 81 MG Orally Active 1 tab let Once a day Coreg [facility] 83808648282 6.25 MG Orally Inactive 1 ta b BID Metoprolol [facility] 64156545429 50 MG Orally Active 1 ta blet Tartrate Twice a day with food Results No Known Results Summary Purpose eClinicalWorks Submission
--- OUTSIDE RECORDS SUMMARY | 2019-06-18 10:51 | XMS REPORT ---
:1940 Author Organization eClinicalWorks Care Team Providers Name Role Phone PerryJohn Provider Role Unavailable Allergies No Known Allergies Problems Problem Type Condition Code Onset Dates Condition Statu s Problem Hypertensive heart disease without I11.9 Active heart failure Problem Primary osteoarthritis of left knee M17.12 Active Problem 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 knee Problem Coronary artery disease involving I25.110 Active [place] coronary artery of [place] heart with unstable angina pectoris Problem Chronic kidney disease (CKD), stage N18.4 Active IV (severe) Problem Stented coronary artery Z95.5 Acti ve Problem Proteinuria, unspecified R80.9 Act diandra Problem Cervical stenosis (uterine cervix) N88.2 Active Problem History of cholecystectomy Z90.49 A ctive Problem Acute pain of left knee M25.562 Acti ve Problem Pain, joint, knee, right M25.561 Act diandra Problem 3-vessel coronary artery disease I25.10 Active Problem Adult BMI 36.0-36.9 kg/sq m Z68.36 Active Problem Atherosclerosis of [place] coronary I25.10 Active artery Problem H/O stroke without residual Z86.73 Active deficits Problem Other osteoporosis M81.8 Active Problem At risk for falling Z91.81 Active Problem Cervical stenosis of spine M48.02 A ctive Problem Type 2 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 Problem Primary hypersomnia F51.11 Active Problem 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 Ac tive classified elsewhere Problem Mixed hyperlipidemia E78.2 Active 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
--- OUTSIDE RECORDS SUMMARY | 2019-06-18 10:51 | XMS REPORT ---
:1940 Author Organization eClinicalWorks Care Team Providers Name Role Phone OrlandoJohn Provider Role Unavailable Allergies No Known Allergies Problems Problem Type Condition Code Onset Dates Condition Statu s Assessment Stented coronary artery Z95.5 Acti ve Problem Type 2 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 Assessment Coronary artery disease involving I25.110 Active [place] coronary artery of [place] heart with unstable angina pectoris Problem 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 Ac tive classified elsewhere Problem Chronic kidney disease, stage 4 N18.4 Active (severe) Problem 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 knee Problem Hypertensive heart disease without I11.9 Active heart failure Problem 3-vessel coronary artery disease I25.10 Active Problem Coronary artery disease involving I25.110 Active [place] coronary artery of [place] heart with unstable angina pectoris Problem Proteinuria, unspecified R80.9 Act diandra Problem Cervical stenosis (uterine cervix) N88.2 Active Problem Stented coronary artery Z95.5 Acti ve Problem Mixed hyperlipidemia E78.2 Active Problem Pain, joint, knee, right M25.561 Act diandra Problem Primary osteoarthritis of left knee M17.12 Active Problem Adult BMI 36.0-36.9 kg/sq m Z68.36 Active Problem Acute pain of left knee M25.562 Acti ve Problem At risk for falling Z91.81 Active Problem Atherosclerosis of [place] coronary I25.10 Active artery Problem Chronic kidney disease (CKD), stage N18.4 Active IV (severe) Problem Other osteoporosis M81.8 Active 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
--- OUTSIDE RECORDS SUMMARY | 2019-06-18 10:51 | XMS REPORT ---
:1940 Author Organization eClinicalWorks Care Team Providers Name Role Phone John Perry Provider Role Unavailable Allergies No Known Allergies Problems Problem Type Condition Code Onset Dates Condition Statu s Assessment Right upper quadrant abdominal pain R10.11 Active Assessment History of cholecystectomy Z90.49 A ctive Problem 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 Ac tive classified elsewhere Problem Chronic kidney disease, stage 4 N18.4 Active (severe) Problem Mixed hyperlipidemia E78.2 Active Problem Hypertensive heart disease without I11.9 Active heart failure Problem Primary osteoarthritis of left knee M17.12 Active Problem 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 knee Problem Coronary artery disease involving I25.110 Active [place] coronary artery of [place] heart with unstable angina pectoris Problem Stented coronary artery Z95.5 Acti ve Problem Chronic kidney disease (CKD), stage N18.4 Active IV (severe) Problem Proteinuria, unspecified R80.9 Act diandra Problem History of cholecystectomy Z90.49 A ctive Problem Cervical stenosis (uterine cervix) N88.2 Active Problem Acute pain of left knee M25.562 Acti ve Problem Pain, joint, knee, right M25.561 Act diandra Problem 3-vessel coronary artery disease I25.10 Active Problem Adult BMI 36.0-36.9 kg/sq m Z68.36 Active Problem Atherosclerosis of [place] coronary I25.10 Active artery Problem H/O stroke without residual Z86.73 Active deficits Problem Other osteoporosis M81.8 Active Problem At risk for falling Z91.81 Active Problem Cervical stenosis of spine M48.02 A ctive Problem Type 2 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 Problem Primary hypersomnia F51.11 Active Problem long-term current 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 Z79.4 Active Medications No Known Medications Results No Known Results Summary Purpose eClinicalWorks Submission
--- OUTSIDE RECORDS SUMMARY | 2019-06-18 10:51 | XMS REPORT ---
:1940 Author Organization eClinicalWorks Care Team Providers Name Role Phone Mu Perryh Provider Role Unavailable Allergies, Adverse Reactions, Alerts Substance Reaction Event Type Levaquin Info Not Available Drug Allergy Benadryl Info Not Available Drug Allergy Amiodarone HCl Info Not Available Drug Allergy ALL PAIN NARCOTICS Swelling of throat, hands Non Drug Aller gy CONTRAST DYE Info Not Available Non Drug Allergy Problems Problem Type Condition Code Onset Dates Condition Statu s Assessment Left sided numbness R20.0 Active Assessment History of coronary artery stent Z95.5 Active placement Assessment 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 Ac tive classified elsewhere Assessment Proteinuria, unspecified R80.9 Act diandra Assessment Hypertensive heart disease without I11.9 Active heart failure Assessment Chronic kidney disease, stage 4 N18.4 Active (severe) Assessment Type 2 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 Assessment Chronic systolic congestive heart I50.22 Active failure Assessment Coronary artery disease involving I25.110 Active [place] coronary artery of [place] heart with unstable angina pectoris Problem Type 2 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 Assessment Chest pain, unspecified type R07.9 Active Problem 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 Ac tive classified elsewhere Problem Chronic kidney disease, stage 4 N18.4 Active (severe) Problem 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 knee Problem Hypertensive heart disease without I11.9 Active heart failure Problem 3-vessel coronary artery disease I25.10 Active Problem Coronary artery disease involving I25.110 Active [place] coronary artery of [place] heart with unstable angina pectoris Problem Proteinuria, unspecified R80.9 Act diandra Problem Cervical stenosis (uterine cervix) N88.2 Active Assessment 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 Active Problem Stented coronary artery Z95.5 Acti ve Problem Mixed hyperlipidemia E78.2 Active Assessment 3-vessel coronary artery disease I25.10 Active Problem Pain, joint, knee, right M25.561 Act diandra Problem Primary osteoarthritis of left knee M17.12 Active Problem Adult BMI 36.0-36.9 kg/sq m Z68.36 Active Problem Acute pain of left knee M25.562 Acti ve Assessment At risk for falling Z91.81 Active Problem At risk for falling Z91.81 Active Assessment Mixed hyperlipidemia E78.2 Active Problem Atherosclerosis of [place] coronary I25.10 Active artery Assessment Cervical stenosis of spine M48.02 A ctive Problem Chronic kidney disease (CKD), stage N18.4 Active IV (severe) Assessment Other osteoporosis M81.8 Active Problem Other osteoporosis M81.8 Active Assessment H/O stroke without residual Z86.73 Active deficits Problem shelter current 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 Z79.4 Active Assessment Adult BMI 36.0-36.9 kg/sq m Z68.36 Active Problem Cervical stenosis of spine M48.02 A ctive Problem H/O stroke without residual Z86.73 Active deficits Problem Primary hypersomnia F51.11 Active Medications Medication Code Code Instructions Start End Status Dosage System Date Date Calcitriol [facility] 00513919694 0.5 MCG Orally Active 1 capsule Once a day Nitrostat [facility] 52839859979 0.4 MG Active as Sublingual 3 directed doses within 15 minutes PRN CHEST PAIN Bumetanide [facility] 23470878821 1 MG Oral Active TAKE 1 TABLET BY MOUTH TWICE A DAY Clopidogrel ND 89974364828 75 MG Orally Active 1 t ablet Bisulfate Once a day Metoprolol [facility] 44310585954 50 MG Orally Active 1 ta blet Tartrate Twice a day with food Ferrous Sulfate [facility] 43525852467 325 (65 Fe) MG Activ e TAKE 1 Oral TABLET BY MOUTH TWICE A DAY Thiamine HCl ND 89973097424 100 MG Orally Active 1 tablet Once a day Lipitor ND 95224205579 80 MG Orally Active 1 table t Once a day Folic Acid [facility] 63415094816 1 MG Orally Active 1 tab let Once a day Lactobacillus NDC 0 Active not defined Plavix [facility] 80571333813 75 MG Orally Active 1 table t Once a day Vitamin D-3 [facility] 78283245739 5000 UNIT Active as Orally directed Cyanocobalamin [facility] [address]-73 1000 MCG Active 1 tablet Orally Once a day BD Pen Needle [facility] 86267815217 31G X 5 MM Active USE Mini U/F DIRECTED Tradjenta [facility] 22855762313 5 MG Orally Active 1 tabl et Once a day Tresiba FlexTouch [facility] 25985814563 200 UNIT/ML Active 10 units Subcutaneous daily Senna S [facility] 06418088708 8.6-50 MG Active 1 tablet Orally Once a in the day evening as needed Humalog [facility] 69513956123 100 UNIT/ML Active as Subcutaneous directed Aspir-Low [facility] 22994433457 81 MG Orally Active 1 tab let Once a day Coreg [facility] 38519968038 6.25 MG Orally Inactive 1 ta b BID Cranberry Extract [facility] [address] Active no t defined Results No Known Results Summary Purpose eClinicalWorks Submission
--- OUTSIDE RECORDS SUMMARY | 2019-06-18 10:51 | XMS REPORT ---
:1940 Author Organization eClinicalWorks Care Team Providers Name Role Phone Orlando John Provider Role Unavailable Allergies No Known Allergies Problems Problem Type Condition Code Onset Dates Condition Statu s Problem Chronic kidney disease, stage 4 N18.4 Active (severe) Problem 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 knee Problem Hypertensive heart disease without I11.9 Active heart failure Problem 3-vessel coronary artery disease I25.10 Active Problem Proteinuria, unspecified R80.9 Act diandra Problem Coronary artery disease involving I25.110 Active [place] coronary artery of [place] heart with unstable angina pectoris Problem Cervical stenosis (uterine cervix) N88.2 Active Problem Mixed hyperlipidemia E78.2 Active Problem Stented coronary artery Z95.5 Acti ve Problem Pain, joint, knee, right M25.561 Act diandra Problem Primary osteoarthritis of left knee M17.12 Active Problem Adult BMI 36.0-36.9 kg/sq m Z68.36 Active Problem Acute pain of left knee M25.562 Acti ve Problem At risk for falling Z91.81 Active Problem Atherosclerosis of [place] coronary I25.10 Active artery Problem Chronic kidney disease (CKD), stage N18.4 Active IV (severe) Problem Other osteoporosis M81.8 Active Problem manager intermediate 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
--- OUTSIDE RECORDS SUMMARY | 2019-06-18 10:51 | XMS REPORT ---
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
--- OUTSIDE RECORDS SUMMARY | 2019-06-18 10:52 | XMS REPORT ---
:1940 Author Organization eClinicalWorks Care Team Providers Name Role Phone John Perry Provider Role Unavailable Allergies No Known Allergies Problems Problem Type Condition Code Onset Dates Condition Statu s Problem Mixed hyperlipidemia E78.2 Active Problem Cervical [...] of left knee M25.562 Acti ve Problem 3-vessel coronary artery disease I25.10 Active Problem Coronary artery disease involving I25.110 Active [place] coronary artery of [place] heart with unstable angina pectoris Problem At risk for falling Z91.81 Active Problem Atherosclerosis of [place] coronary I25.10 Active artery Problem Chronic kidney disease (CKD), stage N18.4 Active IV (severe) Problem Other osteoporosis M81.8 Active Problem Hypertensive heart disease without I11.9 Active heart failure Problem 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
--- OUTSIDE RECORDS SUMMARY | 2019-06-18 10:52 | XMS REPORT ---
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 Active Problem 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 Ac tive classified elsewhere Problem Chronic kidney disease, stage 4 N18.4 Active (severe) Medications Medication Code Code Instructions Start End Status Dosage System Date Date Humalog [facility] 97245091066 100 UNIT/ML Active as direc elva Subcutaneous Lipitor [facility] 38613172902 80 MG Orally Active 1 table t Once a day Tradjenta [facility] 70777191557 5 MG Orally Active 1 tabl et Once a day Metoprolol [facility] 60591933741 50 MG Orally Active 1 ta blet Tartrate Twice a day with food Nitrostat [facility] 70250638039 0.4 MG Active as directe d Sublingual 3 doses within 15 minutes PRN CHEST PAIN Lactobacillus NDC 0 Active not define d Protonix [facility] 08418547386 40 MG Orally Active 1 pack et Once a day mixed with apple juice or applesauce Cyanocobalamin [facility] [address]-94 1000 MCG Active 1 tablet Orally Once a day Tresiba FlexTouch [facility] 78959923205 200 UNIT/ML Active 10 units Subcutaneous daily Atorvastatin [facility] 07593103494 80 MG Active TAKE 1 Calcium TABLET BY MOUTH EVERY DAY Bumetanide [facility] 25954512114 1 MG Oral Active TAKE 1 TABLET BY MOUTH TWICE A DAY Senna S [facility] 50694659097 8.6-50 MG Active 1 tablet i n Orally Once a the evenin g day as needed Folic Acid [facility] 02272040697 1 MG Active TAKE 1 TABLET BY MOUTH EVERY DAY Calcitriol [facility] 02514632192 0.5 MCG Active TAKE 1 CAPSULE BY MOUTH EVERY DAY BD Pen Needle [facility] 27223121151 31G X 5 MM Active USE Mini U/F DIRECTED Vitamin D-3 [facility] 06984381905 5000 UNIT Active as dir ected Orally Ferrous Sulfate [facility] 06698610070 325 (65 Fe) MG Activ e TAKE 1 Oral TABLET BY MOUTH TWICE A DAY Calcitriol [facility] [address]-66 0.5 MCG Active TAKE 1 CAPSULE BY MOUTH EVERY DAY Cranberry Extract [facility] 84009-[address] Active no t defined Clopidogrel [facility] 88705306981 75 MG Orally Active 1 t ablet Bisulfate Once a day Thiamine HCl [facility] 72488487245 100 MG Orally Active 1 tablet Once a day Aspir-Low [facility] 52549174373 81 MG Orally Active 1 tab let Once a day Clopidogrel [facility] 04027356012 75 MG Active TAKE 1 Bisulfate TABLET BY MOUTH EVERY DAY Results No Known Results Summary Purpose eClinicalWorks Submission
--- OUTSIDE RECORDS SUMMARY | 2019-06-18 10:52 | XMS REPORT ---
[...] Code Onset Dates Condition Statu s Assessment Chronic kidney disease (CKD), stage N18.4 [...] Assessment Coronary artery disease involving I25.110 Active [place] coronary artery of [place] heart with unstable angina pectoris Problem Mixed [...] stenosis of spine M48.02 A ctive Problem Adult BMI 36.0-36.9 kg/sq m Z68.36 Active Assessment Adult BMI 36.0-36.9 kg/sq m Z68.36 Active Problem Acute pain of left knee M25.562 Acti ve Assessment H/O stroke without residual Z86.73 Active deficits Problem 3-vessel coronary artery disease I25.10 Active Assessment half-way current 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 Z79.4 Active Problem Coronary artery disease involving I25.110 Active [place] coronary artery of [place] heart with unstable angina pectoris Assessment Proteinuria, unspecified R80.9 Act [place]andra Problem At risk for falling Z91.81 Active Assessment 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 Ac tive classified elsewhere Problem Atherosclerosis of [place] coronary I25.10 Active artery Assessment Mixed hyperlipidemia E78.2 Active Problem Chronic kidney disease (CKD), stage N18.4 Active IV (severe) Assessment Left sided numbness R20.0 Active Problem Other osteoporosis M81.8 Active Assessment At risk for falling Z91.81 Active Problem Hypertensive heart disease without I11.9 Active heart failure Assessment History of coronary artery stent Z95.5 Active placement Problem half-way current 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 Z79.4 Active Problem 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 Ac tive classified elsewhere Problem Chronic kidney disease, stage 4 N18.4 Active (severe) Medications Medication Code Code Instructions Start End Status Dosage System Date Date Clopidogrel [facility] 17328623175 75 MG Active TAKE 1 Bisulfate TABLET BY MOUTH EVERY DAY Cyanocobalamin [facility] [address]-14 1000 MCG Active 1 tablet Orally Once a day Thiamine HCl ND 84779990736 100 MG Orally Active 1 tablet Once a day Tresiba FlexTouch ND 03166038339 200 UNIT/ML Active 10 units Subcutaneous daily Ferrous Sulfate ND 49628872734 325 (65 Fe) MG Activ e TAKE 1 Oral TABLET BY MOUTH TWICE A DAY BD Pen Needle [facility] 63209852209 31G X 5 MM Active USE Mini U/F DIRECTED Aspir-Low ND 24439407568 81 MG Orally Active 1 tab let Once a day Protonix ND 72116498348 40 MG Orally Active 1 pack et Once a day mixed with apple juice or applesauce Senna S ND 46770570588 8.6-50 MG Active 1 tablet i n Orally Once a the evenin g day as needed Atorvastatin ND 11738008338 80 MG Active TAKE 1 Calcium TABLET BY MOUTH EVERY DAY Humalog ND 84088567778 100 UNIT/ML Active as direc elva Subcutaneous Clopidogrel ND 11093871115 75 MG Orally Active 1 t ablet Bisulfate Once a day Folic Acid [facility] 05517590374 1 MG Active TAKE 1 TABLET BY MOUTH EVERY DAY Nitrostat [facility] 97161688949 0.4 MG Active as directe d Sublingual 3 doses within 15 minutes PRN CHEST PAIN Tradjenta [facility] 09753107251 5 MG Orally Active 1 tabl et Once a day Cranberry Extract [facility] 12711-73524 Active no t defined Lactobacillus ND 0 Active not define d Lipitor [facility] 15256937379 80 MG Orally Active 1 table t Once a day Metoprolol [facility] 95515339416 50 MG Orally Active 1 ta blet Tartrate Twice a day with food Calcitriol [facility] 97475369269 0.5 MCG Orally Active 1 capsule Once a day Vitamin D-3 [facility] 33145684357 5000 UNIT Active as dir ected Orally Bumetanide [facility] 39060798042 1 MG Oral Active TAKE 1 TABLET BY MOUTH TWICE A DAY Results No Known Results Summary Purpose eClinicalWorks Submission
--- OUTSIDE RECORDS SUMMARY | 2019-06-18 10:52 | XMS REPORT ---
:1940 Author Organization eClinicalWorks Care Team Providers Name Role Phone John Perry Provider Role Unavailable Allergies No Known Allergies Problems Problem Type Condition Code Onset Dates Condition Statu s Assessment 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 Ac tive classified elsewhere Assessment Chronic kidney disease (CKD), [...] Problem Coronary artery disease involving I25.110 Active [place] coronary artery of [place] heart with unstable angina pectoris Problem At risk for falling Z91.81 Active Problem Atherosclerosis of [place] coronary I25.10 Active artery Problem Chronic kidney disease (CKD), stage N18.4 Active IV (severe) Problem Other osteoporosis M81.8 Active Problem Hypertensive heart disease without I11.9 Active heart failure Problem 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
--- OUTSIDE RECORDS SUMMARY | 2019-06-18 10:52 | XMS REPORT ---
[...] Code Onset Dates Condition Statu s Assessment Chest pain, unspecified type R07.9 Active Assessment Chronic kidney disease (CKD), stage N18.4 Active IV (severe) Assessment Chronic systolic congestive heart I50.22 Active failure Assessment Type 2 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 Assessment Atrial flutter, unspecified type I48.92 Active Assessment 3-vessel coronary artery disease I25.10 Active Assessment Coronary artery disease involving I25.110 Active [place] coronary artery of [place] heart with unstable angina pectoris Assessment [facility] current 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 Z79.4 Active Assessment NSTEMI (non-ST elevated myocardial I21.4 Active infarction) Problem Mixed hyperlipidemia E78.2 Active Problem H/O stroke without residual Z86.73 Active deficits Problem Type 2 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 Problem Pain, joint, knee, right M25.561 Act diandra Problem Primary hypersomnia F51.11 Active Problem 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 knee Problem Acute pain of left knee M25.562 Acti ve Problem Primary osteoarthritis of left knee M17.12 Active Problem Atrial flutter, unspecified type I48.92 Active Problem History of cholecystectomy Z90.49 A ctive Problem Chronic kidney disease (CKD), stage N18.4 Active IV (severe) Problem Proteinuria, unspecified R80.9 Act diandra Assessment At risk for falling Z91.81 Active Problem NSTEMI (non-ST elevated myocardial I21.4 Active infarction) Problem Cervical stenosis (uterine cervix) N88.2 Active Assessment Other osteoporosis M81.8 Active Problem Coronary artery disease involving I25.110 Active [place] coronary artery of [place] heart with unstable angina pectoris Assessment Cervical stenosis of spine M48.02 A ctive Problem Adult BMI 36.0-36.9 kg/sq m Z68.36 Active Assessment Adult BMI 36.0-36.9 kg/sq m Z68.36 Active Problem Stented coronary artery Z95.5 Acti ve Assessment H/O stroke without residual Z86.73 Active deficits Problem 3-vessel coronary artery disease I25.10 Active Assessment 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 Ac tive classified elsewhere Problem Atherosclerosis of [place] coronary I25.10 Active artery Assessment Hypertensive heart disease without I11.9 Active heart failure Problem 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 Ac tive classified elsewhere Assessment Left sided numbness R20.0 Active Problem Other osteoporosis M81.8 Active Assessment Proteinuria, unspecified R80.9 Act diandra Problem At risk for falling Z91.81 Active Assessment History of coronary artery stent Z95.5 Active placement Problem rn long term care 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 83557192622 500 MG Oral Active TA KE 1 TABLET BY MOUTH TWICE A DAY Lactobacillus NDC 0 Active not define d Calcitriol [facility] 67496404502 0.5 MCG Active TAKE 1 CAPSULE BY MOUTH EVERY DAY Folic Acid [facility] 06500636718 1 MG Active TAKE 1 TABLET BY MOUTH EVERY DAY Bumetanide [facility] 78007115202 1 MG Oral Active TAKE 1 TABLET BY MOUTH TWICE A DAY Ranolazine ER [facility] 25685327528 500 MG Orally May Active 1 tablet Twice a day 2019 Nitrostat [facility] 82214796265 0.4 MG Active as directe d Sublingual 3 doses within 15 minutes PRN CHEST PAIN Senna S [facility] 89463804227 8.6-50 MG Active 1 tablet i n Orally Once a the evenin g day as needed Protonix [facility] 15491312098 40 MG Orally Active 1 pack et Once a day mixed with apple juice or applesauce Cyanocobalamin [facility] [address]-96 1000 MCG Active 1 tablet Orally Once a day Tradjenta [facility] 16786183842 5 MG Orally Active 1 tabl et Once a day Calcitriol [facility] 86148495004 0.5 MCG Orally Active 1 capsule Once a day Brilinta [facility] 04477781606 90 MG Orally Chyna Active 1 tabl et Twice a day 2019 Aspir-Low ND 82511073851 81 MG Orally Active 1 tab let Once a day Cranberry [facility] 65456-70391 Active not define d Extract Brilinta [facility] 36927802997 90 MG Oral Active TAKE 1 TABLET BY MOUTH TWICE A DAY Clopidogrel [facility] 04179958426 75 MG Orally Inactive 1 tablet Bisulfate Once a day BD Pen Needle [facility] 45330370438 31G X 5 MM Active USE Mini U/F DIRECTED Atorvastatin [facility] 04832513061 80 MG Active TAKE 1 Calcium TABLET BY MOUTH EVERY DAY Tresiba [facility] 09373228327 200 UNIT/ML Active 14 units FlexTouch Subcutaneous daily Thiamine HCl [facility] 85259346028 100 MG Orally Active 1 tablet Once a day Lipitor [facility] 89678369742 80 MG Orally Active 1 table t Once a day Vitamin D-3 [facility] 14604177976 5000 UNIT Active as dir ected Orally Ferrous Sulfate [facility] 18406612949 325 (65 Fe) MG Activ e TAKE 1 Oral TABLET BY MOUTH TWICE A DAY Metoprolol [facility] 50965262653 50 MG Orally Active 1 ta blet Tartrate Twice a day with food Results No Known Results Summary Purpose eClinicalWorks Submission
--- OUTSIDE RECORDS SUMMARY | 2019-06-18 10:52 | XMS REPORT ---
:1940 Author Organization eClinicalWorks Care Team Providers Name Role Phone John Perry Provider Role Unavailable Allergies No Known Allergies Problems Problem Type Condition Code Onset Dates Condition Statu s Assessment Atrial flutter, unspecified type I48.92 Active Assessment Stented coronary artery Z95.5 Acti ve Assessment Coronary artery disease involving I25.110 Active [place] coronary artery of [place] heart with unstable angina pectoris Problem Mixed [...] Problem Coronary artery disease involving I25.110 Active [place] coronary artery of [place] heart with unstable angina pectoris Problem At risk for falling Z91.81 Active Problem Atherosclerosis of [place] coronary I25.10 Active artery Problem Chronic kidney disease (CKD), stage N18.4 Active IV (severe) Problem Other osteoporosis M81.8 Active Problem Hypertensive heart disease without I11.9 Active heart failure Problem 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
[2019-06-18 11:09] LABS: Basophils % 0.6 % (0-1.3); Hematocrit 37.1 % (36.0-45.0); Lymphocytes % 14.9 % (15.3-44.8); MPV 8.2 fL (7.6-11.3); RBC Red Blood Cell Count 3.97 M/uL (3.86-4.86)
[2019-06-18 11:28] LABS: Albumin 3.4 g/dL (3.4-5.0); Bilirubin Direct 0.1 mg/dL (0-0.2); Bilirubin Total 0.5 mg/dL (0.2-1.0); Protein, Total 6.9 g/dL (6.4-8.2)
--- NOTE | 2019-06-18 11:43 | EDPHYS ---
Physician Documentation [facility] Name: Suzan Gonzalez Age: 79 yrs Sex: Female : 1940 Arrival Date: 06/18/2019 Time: 10:40 Bed 4 Private MD: [place] [facility] ED Physician Hipolito Phan HPI: 06/17 11:01 This 79 yrs old Female presents to ER via Wheelchair with complaints of rn Jaundice. 11:01 Sent here by pcp for blood tests, went there today after noticed yellow hue to her rn skin, states is subtle but notices it on arms and legs, not face or torso. NO change in diet. Recently started brilinta and ranexa. No new abd pain or trauma. . Onset: The symptoms/episode began/occurred at an unknown time. Severity of symptoms: At their worst the symptoms were very mild in the emergency department the symptoms are unchanged. The patient has not experienced similar symptoms in the past. The patient has been recently seen by a physician:. Historical: - Allergies: 10:51 "every pain narcotic"; sv 10:51 Bactrim; sv 10:51 Benadryl; sv 10:51 Iodine; sv 10:51 Levaquin; sv 10:51 Levofloxacin; sv 10:51 Morphine; sv 10:51 Sulfa (Sulfonamide Antibiotics); sv - PMHx: 10:51 Diabetes - NIDDM; kidney problems; sv - PSHx: 10:51 Angioplasty; sv - Immunization history:: Adult Immunizations up to date. - Social history:: Smoking status: Patient denies any tobacco usage or history of. - Family history:: not pertinent. - Hospitalizations: : Patient was recently seen at. ROS: 11:01 Constitutional: Negative for fever, chills, and weight loss, Eyes: Negative for injury, rn pain, redness, and discharge, Neck: Negative for injury, pain, and swelling, Cardiovascular: Negative for chest pain, palpitations, and edema, Respiratory: Negative for shortness of breath, cough, wheezing, and pleuritic chest pain, Abdomen/GI: Negative for abdominal pain, nausea, vomiting, diarrhea, and constipation, MS/Extremity: Negative for injury and deformity, Skin: Negative for injury, rash, and discoloration, Neuro: Negative for headache, weakness, numbness, tingling, and seizure. Exam: 11:01 Constitutional: This is a well developed, well nourished patient who is awake, alert, rn and in no acute distress. Ambulatory to room without difficulty or assistance. Head/Face: Normocephalic, atraumatic. Eyes: NO scleral icterus. Cardiovascular: Regular rate and rhythm. No pulse deficits. Respiratory: No increased work of breathing, no retractions or nasal flaring. Abdomen/GI: soft, non-tender Skin: Warm, dry with normal turgor. Normal color with no rashes, no lesions, and no evidence of cellulitis. MS/ Extremity: Pulses equal, no cyanosis. Neurovascular intact. Full, normal range of motion. Equal circumference. Neuro: Awake and alert, GCS 15, oriented to person, place, time, and situation. Normal gait. Vital Signs: 10:49 BP 152 / 83; Pulse 77; Resp 16; Temp 97.8; Pulse Ox 97% ; sv 11:14 BP 155 / 55; Pulse 69; Resp 16; Pulse Ox 98% ; sv 12:00 BP 157 / 74; Pulse 69; Resp 16; Pulse Ox 100% ; sv MDM: 10:45 Patient medically screened. rn 11:41 Differential Diagnosis jaundice, feared medical complaint, chronic kidney disease. Data rn reviewed: vital signs, nurses notes, lab test result(s), and as a result, I will discharge patient. Counseling: I had a detailed discussion with the patient and/or guardian regarding: the historical points, exam findings, and any diagnostic results supporting the discharge/admit diagnosis, lab results, the need for outpatient follow up, to return to the emergency department if symptoms worsen or persist or if there are any questions or concerns that arise at home. Special discussion: I discussed with the patient/guardian in detail that at this point there is no indication for admission to the hospital. It is understood, however, that if the symptoms persist or worsen the patient needs to return immediately for re-evaluation. Based on the history and exam findings, there is no indication for further emergent testing or inpatient evaluation. I discussed with the patient/guardian the need to see the primary care provider for further evaluation of the symptoms. ED course: Chronic kidney disease labs consistent with previous labs, normal LFTs, will dc home with pcp f/u. . 06/17 10:53 Order name: CBC with Diff; Complete Time: 11:20 rn 06/17 10:53 Order name: Basic Metabolic Panel; Complete Time: 11:30 rn 06/17 10:53 Order name: LFT's; Complete Time: 11:30 rn 06/17 10:53 Order name: Lipase; Complete Time: 11: rn 06/17 10:53 Order name: IV Saline Lock; Complete Time: 11: rn 06/17 10:53 Order name: Labs collected and sent; Complete Time: 11: rn Administered Medications: No medications were administered Disposition: 06/18/19 11:42 Discharged to Home. Impression: Person with feared health complaint in whom no diagnosis is made, Chronic kidney disease (CKD). - Condition is Stable. - Discharge Instructions: Chronic Kidney Disease, Adult. - Medication Reconciliation Form, Thank You Letter, Antibiotic Education, Prescription Opioid Use form. - Follow up: John Perry DO; When: As needed; Reason: Recheck today's complaints, Re-evaluation by your physician. - Problem is new. - Symptoms are unchanged. Signatures: Dispatcher [employer] EDNat Ortez RN RN Nissa Murdock RN RN iw Hipolito Phan MD MD document review attorney: (The following items were deleted from the chart) 12:14 11:42 06/18/2019 11:42 Discharged to Home. Impression: Person with feared health iw complaint in whom no diagnosis is made; Chronic kidney disease (CKD). Condition is Stable. Forms are Medication Reconciliation Form, Thank You Letter, Antibiotic Education, Prescription Opioid Use. Follow up: John Perry; When: As needed; Reason: Recheck today's complaints, Re-evaluation by your physician. Problem is new. Symptoms are unchanged. rn
--- NOTE | 2019-06-18 11:43 | ER ---
Nurse's Notes [facility] Name: Suzan Gonzalez Age: 79 yrs Sex: Female : 1940 Arrival Date: 06/18/2019 Time: 10:40 Bed 4 Private MD: John Perry Diagnosis: Person with feared health complaint in whom no diagnosis is made;Chronic kidney disease (CKD) Presentation: 06/17 10:49 Chief complaint: Patient states: "I noticed my skin in the sun has been yellow and it sv has increased for the past 2 weeks.". Coronavirus screen: Proceed with normal triage. Patient denies a cough. Patient denies shortness of breath or difficulty breathing. Patient denies measured and/or subjective temperature greater than 100.4F prior to today's visit. Patient denies travel on a cruise ship or to a country the [facility] currently lists as an affected area. Patient denies contact with known and/or suspected case of COVID-19. Ebola Screen: No symptoms or risks identified at this time. Initial Sepsis Screen: Does the patient meet any 2 criteria? No. Patient's initial sepsis screen is negative. Does the patient have a suspected source of infection? No. Patient's initial sepsis screen is negative. Risk Assessment: Do you want to hurt yourself or someone else? Patient reports no desire to harm self or others. Onset of symptoms was May 2019. 10:49 Method Of Arrival: Wheelchair sv 10:49 Acuity: SERGIO 4 sv Triage Assessment: 10:52 General: Appears in no apparent distress. comfortable, well developed, Behavior is sv calm, cooperative, appropriate for age. Pain: Denies pain. Neuro: Level of Consciousness is awake, alert, obeys commands, Oriented to person, place, time, situation, Moves all extremities. Full function Gait is steady. Respiratory: Airway is patent Respiratory effort is even, unlabored, Respiratory pattern is regular, symmetrical. Derm: Skin is intact, Skin is pink, warm \\T\\ dry. Musculoskeletal: Range of motion: intact in all extremities. Historical: - Allergies: 10:51 "every pain narcotic"; sv 10:51 Bactrim; sv 10:51 Benadryl; sv 10:51 Iodine; sv 10:51 Levaquin; sv 10:51 Levofloxacin; sv 10:51 Morphine; sv 10:51 Sulfa (Sulfonamide Antibiotics); sv - PMHx: 10:51 Diabetes - NIDDM; kidney problems; sv - PSHx: 10:51 Angioplasty; sv - Immunization history:: Adult Immunizations up to date. - Social history:: Smoking status: Patient denies any tobacco usage or history of. - Family history:: not pertinent. - Hospitalizations: : Patient was recently seen at. Screenin:52 Abuse screen: Denies threats or abuse. Denies injuries from another. Nutritional sv screening: No deficits noted. Tuberculosis screening: No symptoms or risk factors identified. Fall Risk None identified. Assessment: 12:14 Reassessment: Patient appears in no apparent distress at this time. No changes from sv previously documented assessment. Patient and/or family updated on plan of care and expected duration. Pain level reassessed. Patient is alert, oriented x 3, equal unlabored respirations, skin warm/dry/pink. Vital Signs: 10:49 BP 152 / 83; Pulse 77; Resp 16; Temp 97.8; Pulse Ox 97% ; sv 11:14 BP 155 / 55; Pulse 69; Resp 16; Pulse Ox 98% ; sv 12:00 BP 157 / 74; Pulse 69; Resp 16; Pulse Ox 100% ; sv ED Course: 10:40 Patient arrived in ED. as 10:40 John Perry DO is Private Physician. as 10:44 Nat Murphy, SOLITARIO is Primary Nurse. sv 10:45 Hipolito Phan MD is Attending Physician. rn 10:50 Triage completed. sv 10:51 ED physician to see patient. sv 10:51 Arm band placed on. sv 10:52 Patient has correct armband on for positive identification. Bed in low position. Call light in reach. Pulse ox on. NIBP on. Door closed. Head of bed elevated. 11:08 Initial lab(s) drawn, by me, sent to lab. Inserted saline lock: 20 gauge in right kj1 antecubital area, using aseptic technique. Blood collected. 11:42 John Perry DO is Referral Physician. rn 12:14 No provider procedures requiring assistance completed. IV discontinued, intact, iw bleeding controlled, No redness/swelling at site. Pressure dressing applied. Administered Medications: No medications were administered Outcome: 11:42 Discharge ordered by . rn 12:14 Discharged to home via wheelchair, with family. iw 12:14 Condition: good 12:14 Discharge instructions given to patient, Instructed on discharge instructions, follow up and referral plans. Demonstrated understanding of instructions, follow-up care. 12:14 Patient left the ED. iw Signatures: Nat Murphy RN Sandra Mahoney Irene, RN RN iw Nieto, Roman, MD MD rn Jackson, Kandis kj1
[2019-06-18 12:21] VITALS: TEMP 97.8
[2019-06-18 12:26] VITALS: BP 155/55; O2SAT 98
== END 2019-06-18 12:14 | disposition home or self-care (01) ==
LOC: ER 10:37
DX: Z71.1 Person with feared health complaint in whom no diagnosis is made (principal); E11.22 Type 2 diabetes mellitus with diabetic chronic kidney disease; N18.9 Chronic kidney disease, unspecified; Z88.1 Allergy status to other antibiotic agents; Z88.2 Allergy status to sulfonamides; Z88.5 Allergy status to narcotic agent; Z88.8 Allergy status to other drugs, medicaments and biological substances
CPT/HCPCS: 36415; 80048; 80076; 83690; 85025; 99284

== ENCOUNTER 2019-07-25 12:55 | Emergency (ER) | payer OTHER ==
--- OUTSIDE RECORDS SUMMARY | 2019-07-25 13:14 | XMS REPORT | Clinical Summary ---
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 R esults for this CONTRAST ZOOKEEPER procedure are i n the results section. TROPONIN I Routine 03/21/2019 3:07 PM Results for this ZOOKEEPER procedure are i n the results section. XR SHOULDER LEFT RHETT 03/21/2019 2:25 PM Resu lts for this COMPLETE MIN 2 VIEWS ZOOKEEPER procedu re are in the results section. POCT-GLUCOSE METER Routine 03/21/2019 12:58 PM Re sults for this ZOOKEEPER procedure are i n the results section. REPORT OF PROCEDURE - 03/21/2019 12:27 PM ENDOSCOPY URL ZOOKEEPER UPPER ENDOSCOPY 03/21/2019 12:00 PM Atypical chest ZOOKEEPER pain APTT Routine 03/21/2019 10:36 AM Results for this ZOOKEEPER procedure are i n the results section. POCT-GLUCOSE METER Routine 03/21/2019 7:39 AM Re sults for this ZOOKEEPER procedure are i n the results section. APTT Routine 03/21/2019 3:19 AM Results for this ZOOKEEPER procedure are i n the results section. BASIC METABOLIC PANEL Routine 03/21/2019 2:23 AM Results for this (7) ZOOKEEPER procedure are i n the results section. CBC (HEMOGRAM ONLY) Routine 03/21/2019 2:22 AM R esults for this ZOOKEEPER procedure are i n the results section. POCT-GLUCOSE METER Routine 03/20/2019 9:46 PM Re sults for this ZOOKEEPER procedure are i n the results section. APTT Routine 03/20/2019 7:09 PM Results for this ZOOKEEPER procedure are i n the results section. POCT-GLUCOSE METER Routine 03/20/2019 6:20 PM Re sults for this ZOOKEEPER procedure are i n the results section. URINALYSIS W/ Routine 03/20/2019 5:57 PM Results for this MICROSCOPIC ZOOKEEPER procedure are i n the results section. CREATININE, RANDOM Routine 03/20/2019 5:57 PM Re sults for this URINE ZOOKEEPER procedure are i n the results section. PROTEIN, RANDOM URINE Routine 03/20/2019 5:57 PM Results for this ZOOKEEPER procedure are i n the results section. XR CHEST 1 VIEW Routine 03/20/2019 3:12 PM Resul ts for this PORTABLE/BEDSIDE ZOOKEEPER procedure a re in the results section. TROPONIN I Routine 03/20/2019 12:19 PM Results for this ZOOKEEPER procedure are i n the results section. APTT Routine 03/20/2019 12:19 PM Results for this ZOOKEEPER procedure are i n the results section. POCT-GLUCOSE METER Routine 03/20/2019 11:45 AM Re sults for this ZOOKEEPER procedure are i n the results section. POCT-GLUCOSE METER Routine 03/20/2019 7:37 AM Re sults for this ZOOKEEPER procedure are i n the results section. TROPONIN I Routine 03/20/2019 5:54 AM Results for this ZOOKEEPER procedure are i n the results section. CBC W/PLT COUNT & AUTO Routine 03/20/2019 12:43 AM Results for this DIFFERENTIAL ZOOKEEPER procedure are i n the results section. APTT Routine 03/20/2019 12:43 AM Results for this ZOOKEEPER procedure are i n the results section. TROPONIN I Routine 03/20/2019 12:43 AM Results for this ZOOKEEPER procedure are i n the results section. HEMOGLOBIN A1C Routine 03/20/2019 12:43 AM Result s for this ZOOKEEPER procedure are i n the results section. MAGNESIUM Routine 03/20/2019 12:43 AM Results for this ZOOKEEPER procedure are i n the results section. BASIC METABOLIC PANEL Routine 03/20/2019 12:43 AM Results for this (7) ZOOKEEPER procedure are i n the results section. CBC W/PLT COUNT & AUTO Routine 03/20/2019 12:43 AM Results for this DIFFERENTIAL ZOOKEEPER procedure are i n the results section. 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 RHYTHM STRIP - SCAN 02/06/2019 11:22 AM ZOOKEEPER REPORT OF PROCEDURE - 02/01/2019 9:00 AM ZOOKEEPER ENDOSCOPY SCAN RHYTHM STRIP - SCAN 02/01/2019 9:00 AM ZOOKEEPER POCT-GLUCOSE METER Routine 01/30/2019 9:05 AM ZOOKEEPER Results for this procedure are i n the results section . ECG 12-LEAD Routine 01/30/2019 6:27 AM ZOOKEEPER Resu lts for this procedure are i n the results section . CBC W/PLT COUNT & AUTO Routine 01/30/2019 5:56 AM ZOOKEEPER Results for this DIFFERENTIAL procedure are i n the results section . URIC ACID Routine 01/30/2019 5:56 AM ZOOKEEPER Resu lts for this procedure are i n the results section . PHOSPHORUS Routine 01/30/2019 5:56 AM ZOOKEEPER Resu lts for this procedure are i n the results section . MAGNESIUM Routine 01/30/2019 5:56 AM ZOOKEEPER Resu lts for this procedure are i n the results section . CBC W/PLT COUNT & AUTO Routine 01/30/2019 5:56 AM ZOOKEEPER Results for this DIFFERENTIAL procedure are i n the results section . CALCIUM, IONIZED Routine 01/30/2019 5:56 AM ZOOKEEPER Results for this procedure are i n the results section . B-TYPE NATRIURETIC FACTOR Routine 01/30/2019 5:56 AM ZOOKEEPER Results for this (BNP) procedure are i n the results section . BASIC METABOLIC PANEL (7) Routine 01/30/2019 5:56 AM ZOOKEEPER Results for this procedure are i n the results section . POCT-GLUCOSE METER Routine 01/29/2019 9:09 PM ZOOKEEPER Results for this procedure are i n the results section . POCT-GLUCOSE METER Routine 01/29/2019 5:02 PM ZOOKEEPER Results for this procedure are i n the results section . PROTEIN, RANDOM URINE Routine 01/29/2019 2:24 PM ZOOKEEPER Results for this procedure are i n the results section . URINALYSIS W/ MICROSCOPIC Routine 01/29/2019 2:24 PM ZOOKEEPER Results for this procedure are i n the results section . CREATININE, RANDOM URINE Routine 01/29/2019 2:24 PM ZOOKEEPER Results for this procedure are i n the results section . SODIUM, RANDOM URINE Routine 01/29/2019 2:24 PM ZOOKEEPER Results for this procedure are i n the results section . PHOSPHORUS RHETT 01/29/2019 1:24 PM ZOOKEEPER Resu lts for this procedure are i n the results section . MAGNESIUM RHETT 01/29/2019 1:24 PM ZOOKEEPER Resu lts for this procedure are i n the results section . BASIC METABOLIC PANEL (7) RHETT 01/29/2019 1:24 PM ZOOKEEPER Results for this procedure are i n the results section . XR CHEST 1 VIEW Routine 01/29/2019 1:14 PM ZOOKEEPER R esults for this PORTABLE/BEDSIDE procedure a re in the results section . POCT-GLUCOSE METER Routine 01/29/2019 11:38 AM ZOOKEEPER Results for this procedure are i n the results section . POCT-GLUCOSE METER Routine 01/29/2019 7:45 AM ZOOKEEPER Results for this procedure are i n the results section . ECG 12-LEAD Routine 01/29/2019 6:42 AM ZOOKEEPER Procedure Note - Interface, External Ris In - 01/29/2019 6:53 AM ZOOKEEPER Ventricular Rate 66 BPM Atrial Rate 66 BPM P-R Interval 190 ms QRS Duration 100 ms Q-T Interval 460 ms QTC Calculation(Bazett) 482 ms P [place] 60 degrees R [place] 26 degrees T [place] 128 degrees Normal sinus rhythm Nonspecific T wave abnormali ty Prolonged QT Abnormal ECG When compared with ECG of 22:51, No significant change was fo und ECG 12-LEAD Routine 01/29/2019 6:42 AM Results for this ZOOKEEPER procedure are i n the results section. CBC (HEMOGRAM ONLY) Routine 01/29/2019 5:04 AM R esults for this ZOOKEEPER procedure are i n the results section. POCT-GLUCOSE METER Routine 01/28/2019 9:56 PM Re sults for this ZOOKEEPER procedure are i n the results section. ECHOCARDIOGRAM REPORT - 01/28/2019 9:21 PM SCAN ZOOKEEPER C. DIFFICILE GDH TOXIN Routine 01/28/2019 6:41 PM Results for this ZOOKEEPER procedure are i n the results section. OCCULT BLOOD, STOOL Routine 01/28/2019 6:40 PM R esults for this ZOOKEEPER procedure are i n the results section. POCT-GLUCOSE METER Routine 01/28/2019 11:46 AM Re sults for this ZOOKEEPER procedure are i n the results section. 2D ECHO W/ DOPPLER Routine 01/28/2019 11:25 AM Re sults for this (CW/PW/COLOR) ZOOKEEPER procedure are in the results section. APTT Routine 01/28/2019 8:48 AM Results for this ZOOKEEPER procedure are i n the results section. POCT-GLUCOSE METER Routine 01/28/2019 8:28 AM Re sults for this ZOOKEEPER procedure are i n the results section. APTT Routine 01/28/2019 4:28 AM Results for this ZOOKEEPER procedure are i n the results section. BASIC METABOLIC PANEL Routine 01/28/2019 4:28 AM Results for this (7) ZOOKEEPER procedure are i n the results section. CBC (HEMOGRAM ONLY) Routine 01/28/2019 4:28 AM R esults for this ZOOKEEPER procedure are i n the results section. POCT-GLUCOSE METER Routine 01/27/2019 10:00 PM Re sults for this ZOOKEEPER procedure are i n the results section. APTT Routine 01/27/2019 9:12 PM Results for this ZOOKEEPER procedure are i n the results section. POCT-GLUCOSE METER Routine 01/27/2019 5:39 PM Re sults for this ZOOKEEPER procedure are i n the results section. PT/APTT Routine 01/27/2019 4:27 PM Results for this ZOOKEEPER procedure are i n the results section. PT/APTT Routine 01/27/2019 12:58 PM Results for this ZOOKEEPER procedure are i n the results section. POCT-GLUCOSE METER Routine 01/27/2019 12:35 PM Re sults for this ZOOKEEPER procedure are i n the results section. POCT-GLUCOSE METER Routine 01/27/2019 9:31 AM Re sults for this ZOOKEEPER procedure are i n the results section. ECG 12-LEAD Routine 01/27/2019 7:06 AM Results for this ZOOKEEPER procedure are i n the results section. APTT Routine 01/27/2019 5:55 AM Results for this ZOOKEEPER procedure are i n the results section. POCT-GLUCOSE METER Routine 01/27/2019 3:52 AM Re sults for this ZOOKEEPER procedure are i n the results section. BASIC METABOLIC PANEL Routine 01/27/2019 3:47 AM Results for this (7) ZOOKEEPER procedure are i n the results section. APTT Routine 01/27/2019 3:47 AM Results for this ZOOKEEPER procedure are i n the results section. CBC (HEMOGRAM ONLY) Routine 01/27/2019 3:47 AM R esults for this ZOOKEEPER procedure are i n the results section. POCT-GLUCOSE METER Routine 01/26/2019 9:23 PM Re sults for this ZOOKEEPER procedure are i n the results section. APTT Routine 01/26/2019 6:42 PM Results for this ZOOKEEPER procedure are i n the results section. PLATELET COUNT Routine 01/26/2019 6:42 PM Result s for this ZOOKEEPER procedure are i n the results section. POCT-GLUCOSE METER Routine 01/26/2019 1:34 PM Re sults for this ZOOKEEPER procedure are i n the results section. POCT-GLUCOSE METER Routine 01/26/2019 8:21 AM Re sults for this ZOOKEEPER procedure are i n the results section. ECG 12-LEAD Routine 01/26/2019 8:12 AM Results for this ZOOKEEPER procedure are i n the results section. POCT-GLUCOSE METER Routine 01/26/2019 5:42 AM Re sults for this ZOOKEEPER procedure are i n the results section. CBC (HEMOGRAM ONLY) Routine 01/26/2019 5:34 AM R esults for this ZOOKEEPER procedure are i n the results section. TROPONIN I STAT 01/26/2019 5:34 AM Results for this ZOOKEEPER procedure are i n the results section. LIPOPROTEIN (A) Routine 01/26/2019 5:34 AM Resul ts for this ZOOKEEPER procedure are i n the results section. XR CHEST 1 VIEW Routine 01/25/2019 11:56 PM Resul ts for this PORTABLE/BEDSIDE ZOOKEEPER procedure a re in the results section. CBC W/PLT COUNT & AUTO Routine 01/25/2019 11:19 PM Results for this DIFFERENTIAL ZOOKEEPER procedure are i n the results section. APTT Routine 01/25/2019 11:19 PM Results for this ZOOKEEPER procedure are i n the results section. APTT Routine 01/25/2019 11:19 PM Results for this ZOOKEEPER procedure are i n the results section. PROTHROMBIN TIME/INR Routine 01/25/2019 11:19 PM Results for this ZOOKEEPER procedure are i n the results section. CBC W/PLT COUNT & AUTO Routine 01/25/2019 11:19 PM Results for this DIFFERENTIAL ZOOKEEPER procedure are i n the results section. B-TYPE NATRIURETIC Routine 01/25/2019 11:19 PM Re sults for this FACTOR (BNP) ZOOKEEPER procedure are i n the results section. TROPONIN I STAT 01/25/2019 11:19 PM Results for this ZOOKEEPER procedure are i n the results section. COMPREHENSIVE METABOLIC Routine 01/25/2019 11:19 PM Results for this PANEL ZOOKEEPER procedure are i n the results section. MAGNESIUM Routine 01/25/2019 11:19 PM Results for this ZOOKEEPER procedure are i n the results section. ECG 12-LEAD Routine 01/25/2019 10:51 PM Results for this ZOOKEEPER procedure are i n the results section. POCT-GLUCOSE METER Routine 01/25/2019 10:10 PM Re sults for this ZOOKEEPER procedure are i n the results section. RHYTHM STRIP - SCAN 01/01/2019 11:34 AM ZOOKEEPER REPORT OF PROCEDURE - 12/27/2018 7:06 AM ENDOSCOPY SCAN ZOOKEEPER CARDIAC CATH REPORT - 12/27/2018 7:06 AM SCAN ZOOKEEPER RHYTHM STRIP - SCAN 12/27/2018 7:06 AM ZOOKEEPER POCT-GLUCOSE METER Routine 12/25/2018 11:53 AM Re sults for this ZOOKEEPER procedure are i n the results section. POCT-GLUCOSE METER Routine 12/25/2018 6:53 AM Re sults for this ZOOKEEPER procedure are i n the results section. CALCIUM, IONIZED Routine 12/25/2018 4:14 AM Resu lts for this ZOOKEEPER procedure are i n the results section. CBC W/PLT COUNT & AUTO Routine 12/25/2018 4:13 AM Results for this DIFFERENTIAL ZOOKEEPER procedure are i n the results section. PHOSPHORUS Routine 12/25/2018 4:13 AM Results for this ZOOKEEPER procedure are i n the results section. MAGNESIUM Routine 12/25/2018 4:13 AM Results for this ZOOKEEPER procedure are i n the results section. B-TYPE NATRIURETIC Routine 12/25/2018 4:13 AM Re sults for this FACTOR (BNP) ZOOKEEPER procedure are i n the results section. CBC W/PLT COUNT & AUTO Routine 12/25/2018 4:13 AM Results for this DIFFERENTIAL ZOOKEEPER procedure are i n the results section. BASIC METABOLIC PANEL Routine 12/25/2018 4:13 AM Results for this (7) ZOOKEEPER procedure are i n the results section. POCT-GLUCOSE METER Routine 12/24/2018 10:48 PM Re sults for this ZOOKEEPER procedure are i n the results section. POCT-ACT Routine 12/24/2018 10:03 PM Results for this ZOOKEEPER procedure are i n the results section. POCT-GLUCOSE METER Routine 12/24/2018 8:12 PM Re sults for this ZOOKEEPER procedure are i n the results section. POCT-ACT Routine 12/24/2018 5:18 PM Results for this ZOOKEEPER procedure are i n the results section. POCT-ACT Routine 12/24/2018 4:51 PM Results for this ZOOKEEPER procedure are i n the results section. L CATH & PCI 12/24/2018 2:49 PM Non-STEMI (non-ST ZOOKEEPER elevated myocardial infarction) (HCC) POCT-GLUCOSE METER Routine 12/24/2018 12:46 PM Re sults for this ZOOKEEPER procedure are i n the results section. POCT-GLUCOSE METER Routine 12/24/2018 8:25 AM Re sults for this ZOOKEEPER procedure are i n the results section. APTT Routine 12/24/2018 8:24 AM Results for this ZOOKEEPER procedure are i n the results section. APTT Routine 12/24/2018 1:13 AM Results for this ZOOKEEPER procedure are i n the results section. COMPREHENSIVE METABOLIC Routine 12/24/2018 1:13 AM Results for this PANEL ZOOKEEPER procedure are i n the results section. ECG 12-LEAD Routine 12/23/2018 10:36 PM Results for this ZOOKEEPER procedure are i n the results section. POCT-GLUCOSE METER Routine 12/23/2018 5:53 PM Re sults for this ZOOKEEPER procedure are i n the results section. APTT Routine 12/23/2018 4:08 PM Results for this ZOOKEEPER procedure are i n the results section. POCT-GLUCOSE METER Routine 12/23/2018 12:58 PM Re sults for this ZOOKEEPER procedure are i n the results section. POCT-GLUCOSE METER Routine 12/23/2018 8:40 AM Re sults for this ZOOKEEPER procedure are i n the results section. CBC W/PLT COUNT & AUTO Routine 12/23/2018 5:20 AM Results for this DIFFERENTIAL ZOOKEEPER procedure are i n the results section. TROPONIN I Routine 12/23/2018 5:20 AM Results for this ZOOKEEPER procedure are i n the results section. APTT Routine 12/23/2018 5:20 AM Results for this ZOOKEEPER procedure are i n the results section. B-TYPE NATRIURETIC Routine 12/23/2018 5:20 AM Re sults for this FACTOR (BNP) ZOOKEEPER procedure are i n the results section. CBC W/PLT COUNT & AUTO Routine 12/23/2018 5:20 AM Results for this DIFFERENTIAL ZOOKEEPER procedure are i n the results section. PHOSPHORUS Routine 12/23/2018 5:20 AM Results for this ZOOKEEPER procedure are i n the results section. MAGNESIUM Routine 12/23/2018 5:20 AM Results for this ZOOKEEPER procedure are i n the results section. COMPREHENSIVE METABOLIC Routine 12/23/2018 5:20 AM Results for this PANEL ZOOKEEPER procedure are i n the results section. CALCIUM, IONIZED Routine 12/23/2018 5:20 AM Resu lts for this ZOOKEEPER procedure are i n the results section. ECG 12-LEAD Routine 12/23/2018 4:44 AM Results for this ZOOKEEPER procedure are i n the results section. POCT-GLUCOSE METER Routine 12/22/2018 9:03 PM Re sults for this CDT procedure are i n the results section. APTT Routine 12/22/2018 7:53 PM Results for this CDT procedure are i n the results section. POCT-GLUCOSE METER Routine 12/22/2018 5:20 PM Re sults for this CDT procedure are i n the results section. APTT Routine 12/22/2018 12:55 PM Results for this CDT procedure are i n the results section. POCT-GLUCOSE METER Routine 12/22/2018 12:53 PM Re sults for this CDT procedure are i n the results section. POCT-GLUCOSE METER Routine 12/22/2018 8:25 AM Re sults for this CDT procedure are i n the results section. FERRITIN Routine 12/22/2018 4:53 AM Results for this CDT procedure are i n the results section. IRON, TIBC, % SAT. Routine 12/22/2018 4:53 AM Re sults for this (WITHOUT FERRITIN) CDT procedure are in the results section. CALCIUM, IONIZED Routine 12/22/2018 4:53 AM Resu lts for this CDT procedure are i n the results section. B-TYPE NATRIURETIC Routine 12/22/2018 4:53 AM Re sults for this FACTOR (BNP) CDT procedure are i n the results section. CBC W/PLT COUNT & AUTO Routine 12/22/2018 4:52 AM Results for this DIFFERENTIAL CDT procedure are i n the results section. APTT Routine 12/22/2018 4:52 AM Results for this CDT procedure are i n the results section. TROPONIN I Routine 12/22/2018 4:52 AM Results for this CDT procedure are i n the results section. HEMOGLOBIN A1C Routine 12/22/2018 4:52 AM Result s for this CDT procedure are i n the results section. RETICULOCYTE COUNT Routine 12/22/2018 4:52 AM Re sults for this CDT procedure are i n the results section. CBC W/PLT COUNT & AUTO Routine 12/22/2018 4:52 AM Results for this DIFFERENTIAL CDT procedure are i n the results section. COMPREHENSIVE METABOLIC Routine 12/22/2018 4:52 AM Results for this PANEL CDT procedure are i n the results section. PHOSPHORUS Routine 12/22/2018 4:52 AM Results for this CDT procedure are i n the results section. MAGNESIUM Routine 12/22/2018 4:52 AM Results for this CDT procedure are i n the results section. POCT-GLUCOSE METER Routine 12/21/2018 9:54 PM Re sults for this CDT procedure are i n the results section. ECHOCARDIOGRAM REPORT - 12/21/2018 9:21 PM SCAN CDT APTT Routine 12/21/2018 8:04 PM Results for this CDT procedure are i n the results section. US RENAL COMPLETE Routine 12/21/2018 7:58 PM Res ults for this CDT procedure are i n the results section. POCT-GLUCOSE METER Routine 12/21/2018 5:28 PM Re sults for this CDT procedure are i n the results section. APTT Routine 12/21/2018 1:55 PM Results for this CDT procedure are i n the results section. URINALYSIS W/ Routine 12/21/2018 1:08 PM Results for this MICROSCOPIC CDT procedure are i n the results section. SODIUM, RANDOM URINE Routine 12/21/2018 1:08 PM Results for this CDT procedure are i n the results section. PROTEIN, RANDOM URINE Routine 12/21/2018 1:08 PM Results for this CDT procedure are i n the results section. CREATININE, RANDOM Routine 12/21/2018 1:08 PM Re sults for this URINE CDT procedure are i n the results section. TROPONIN I STAT 12/21/2018 11:48 AM Results for this CDT procedure are i n the results section. 2D ECHO W/ DOPPLER STAT 12/21/2018 10:22 AM Re sults for this (CW/PW/COLOR) CDT procedure are in the results section. POCT-GLUCOSE METER Routine 12/21/2018 9:59 AM Re sults for this CDT procedure are i n the results section. PT/APTT STAT 12/21/2018 7:39 AM Results for this CDT procedure are i n the results section. TROPONIN I STAT 12/21/2018 4:00 AM Results for this CDT procedure are i n the results section. BASIC METABOLIC PANEL Routine 12/21/2018 4:00 AM Results for this (7) CDT procedure are i n the results section. CBC (HEMOGRAM ONLY) Routine 12/21/2018 4:00 AM R esults for this CDT procedure are i n the results section. APTT Routine 12/21/2018 4:00 AM Results for this CDT procedure are i n the results section. TROPONIN I STAT 12/21/2018 12:32 AM Results for this CDT procedure are i n the results section. POCT-GLUCOSE METER Routine 12/21/2018 12:29 AM Re sults for this CDT procedure are i n the results section. XR CHEST 1 VIEW STAT 12/20/2018 8:38 PM Resul ts for this PORTABLE/BEDSIDE CDT procedure a re in the results section. CBC W/PLT COUNT & AUTO STAT 12/20/2018 8:33 PM Results for this DIFFERENTIAL CDT procedure are i n the results section. MAGNESIUM STAT 12/20/2018 8:33 PM Results for this CDT procedure are i n the results section. PT/APTT STAT 12/20/2018 8:33 PM Results for this CDT procedure are i n the results section. B-TYPE NATRIURETIC STAT 12/20/2018 8:33 PM Re sults for this FACTOR (BNP) CDT procedure are i n the results section. TROPONIN I STAT 12/20/2018 8:33 PM Results for this CDT procedure are i n the results section. COMPREHENSIVE METABOLIC STAT 12/20/2018 8:33 PM Results for this PANEL CDT procedure are i n the results section. CBC W/PLT COUNT & AUTO STAT 12/20/2018 8:33 PM Results for this DIFFERENTIAL CDT procedure are i n the results section. CRITICAL CARE Routine 12/20/2018 8:19 PM Results for this CDT procedure are i n the results section. ECG 12-LEAD STAT 12/20/2018 8:04 PM Results for this CDT procedure are i n the results section. VASCULAR DIAGRAM -SCAN 11/22/2018 12:20 PM CDT PERMANENT LAB REPORT - 11/14/2018 12:32 PM SCAN CDT RHYTHM STRIP - SCAN 11/14/2018 12:32 PM CDT REPORT OF PROCEDURE - 11/14/2018 12:32 PM ENDOSCOPY SCAN CDT CARDIAC CATH REPORT - 11/14/2018 12:32 PM SCAN CDT POCT-GLUCOSE METER Routine 11/13/2018 11:50 AM Re sults for this CDT procedure are i n the results section. POCT-GLUCOSE METER Routine 11/13/2018 9:10 AM Re sults for this CDT procedure are i n the results section. POCT-GLUCOSE METER Routine 11/13/2018 6:48 AM Re sults for this CDT procedure are i n the results section. URINALYSIS W/ Routine 11/13/2018 1:25 AM Results for this MICROSCOPIC CDT procedure are i n the results section. CBC W/PLT COUNT & AUTO Routine 11/13/2018 1:01 AM Results for this DIFFERENTIAL CDT procedure are i n the results section. CBC W/PLT COUNT & AUTO Routine 11/13/2018 1:01 AM Results for this DIFFERENTIAL CDT procedure are i n the results section. COMPREHENSIVE METABOLIC Routine 11/13/2018 1:01 AM Results for this PANEL CDT procedure are i n the results section. CALCIUM, IONIZED Routine 11/13/2018 1:01 AM Resu lts for this CDT procedure are i n the results section. PHOSPHORUS Routine 11/13/2018 1:01 AM Results for this CDT procedure are i n the results section. B-TYPE NATRIURETIC Routine 11/13/2018 1:01 AM Re sults for this FACTOR (BNP) CDT procedure are i n the results section. MAGNESIUM Routine 11/13/2018 1:01 AM Results for this CDT procedure are i n the results section. POCT-ACT Routine 11/13/2018 12:40 AM Results for this CDT procedure are i n the results section. POCT-ACT Routine 11/12/2018 11:27 PM Results for this CDT procedure are i n the results section. POCT-GLUCOSE METER Routine 11/12/2018 9:31 PM Re sults for this CDT procedure are i n the results section. POCT-ACT Routine 11/12/2018 9:29 PM Results for this CDT procedure are i n the results section. POCT-ACT Routine 11/12/2018 5:50 PM Results for this CDT procedure are i n the results section. POCT-ACT Routine 11/12/2018 4:49 PM Results for this CDT procedure are i n the results section. POCT-ACT Routine 11/12/2018 4:11 PM Results for this CDT procedure are i n the results section. L CATH & PCI 11/12/2018 3:58 PM Unstable angina CDT (HCC) C. DIFFICILE GDH TOXIN Routine 11/12/2018 2:14 PM Results for this CDT procedure are i n the results section. NM CARDIAC PET Routine 11/12/2018 12:09 PM Result s for this PERFUSION REST AND/OR CDT proced ure are in STRESS the results section. TREADMILL Routine 11/12/2018 12:06 PM Results for this TOLERANCE(NON-NUCLEAR CDT proced ure are in TREADMILL) the results section. ECG 12-LEAD Routine 11/12/2018 10:01 AM CDT Procedure Note - Interface, External Ris In - 11/12/2018 10:07 AM CDT Ventricular Rate 78 BPM Atrial Rate 78 BPM P-R Interval 176 ms QRS Duration 108 ms Q-T Interval 456 ms QTC Calculation(Bazett) 519 ms P [place] 75 degrees R [place] 50 degrees T [place] 44 degrees Normal sinus rhythm Incomplete left bundle branc h block Nonspecific ST and T wave ab normality Prolonged QT Abnormal ECG When compared with ECG of 00:12, Nonspecific T wave abnormali ty, worse in Inferior leads ECG 12-LEAD Routine 11/12/2018 10:01 AM CDT Resu lts for this procedure are i n the results section . APTT Routine 11/12/2018 10:01 AM CDT Resu lts for this procedure are i n the results section . POCT-GLUCOSE METER Routine 11/12/2018 8:34 AM CDT Results for this procedure are i n the results section . CBC W/PLT COUNT & AUTO Routine 11/12/2018 4:18 AM CDT Results for this DIFFERENTIAL procedure are i n the results section . APTT Routine 11/12/2018 4:18 AM CDT Resu lts for this procedure are i n the results section . CBC W/PLT COUNT & AUTO Routine 11/12/2018 4:18 AM CDT Results for this DIFFERENTIAL procedure are i n the results section . PHOSPHORUS Routine 11/12/2018 4:18 AM CDT Resu lts for this procedure are i n the results section . COMPREHENSIVE METABOLIC Routine 11/12/2018 4:18 AM CDT Results for this PANEL procedure are i n the results section . CALCIUM, IONIZED Routine 11/12/2018 4:18 AM CDT Results for this procedure are i n the results section . MAGNESIUM Routine 11/12/2018 4:18 AM CDT Resu lts for this procedure are i n the results section . HEMOGLOBIN A1C Routine 11/12/2018 4:18 AM CDT Re sults for this procedure are i n the results section . LIPID PANEL Routine 11/12/2018 4:18 AM CDT Resu lts for this procedure are i n the results section . APTT Routine 11/11/2018 10:02 PM CDT Resu lts for this procedure are i n the results section . ECHOCARDIOGRAM REPORT - SCAN 11/11/2018 9:20 PM CDT POCT-GLUCOSE METER Routine 11/11/2018 5:08 PM CDT Results for this procedure are i n the results section . APTT Routine 11/11/2018 3:24 PM CDT Resu lts for this procedure are i n the results section . 2D ECHO W/ DOPPLER Routine 11/11/2018 1:14 PM CDT Results for this (CW/PW/COLOR) procedure are in the results section . POCT-GLUCOSE METER Routine 11/11/2018 12:39 PM CDT Results for this procedure are i n the results section . POCT-GLUCOSE METER Routine 11/11/2018 8:53 AM CDT Results for this procedure are i n the results section . TROPONIN I Routine 11/11/2018 8:24 AM CDT Resu lts for this procedure are i n the results section . XR CHEST 1 VIEW Routine 11/11/2018 8:05 AM CDT R esults for this PORTABLE/BEDSIDE procedure a re in the results section . CBC W/PLT COUNT & AUTO Routine 11/11/2018 12:39 AM CDT Results for this DIFFERENTIAL procedure are i n the results section . PT/APTT Routine 11/11/2018 12:39 AM CDT Resu lts for this procedure are i n the results section . CBC W/PLT COUNT & AUTO Routine 11/11/2018 12:39 AM CDT Results for this DIFFERENTIAL procedure are i n the results section . B-TYPE NATRIURETIC FACTOR Routine 11/11/2018 12:39 AM CDT Results for this (BNP) procedure are i n the results section . TROPONIN I STAT 11/11/2018 12:39 AM CDT Resu lts for this procedure are i n the results section . TSH/FREE T4 IF INDICATED Routine 11/11/2018 12:39 AM CDT Results for this procedure are i n the results section . MAGNESIUM Routine 11/11/2018 12:39 AM CDT Resu lts for this procedure are i n the results section . HEPATIC FUNCTION PANEL Routine 11/11/2018 12:39 AM CDT Results for this procedure are i n the results section . BASIC METABOLIC PANEL (7) Routine 11/11/2018 12:39 AM CDT Results for this procedure are i n the results section . ECG 12-LEAD Routine 11/11/2018 12:12 AM CDT Procedure Note - Interface, External Ris In - 11/11/2018 6:55 PM CDT Ventricular Rate 72 BPM Atrial Rate 72 BPM P-R Interval 178 ms QRS Duration 106 ms Q-T Interval 452 ms QTC Calculation(Bazett) 494 ms P [place] 73 degrees R [place] 34 degrees T [place] 92 degrees Normal sinus rhythm Cannot rule out Anterior inf arct , age undetermined Abnormal ECG When compared with ECG of 08:00, Minimal criteria for Anterio r infarct are now Present ST no longer depressed in An terior leads ECG 12-LEAD STAT 11/11/2018 12:12 Results for this AM CDT procedure are i n the results section. VASCULAR DIAGRAM -SCAN 08/24/2018 12:15 PM CDT RHYTHM STRIP - SCAN 08/22/2018 10:41 AM CDT VASCULAR DIAGRAM -SCAN 08/21/2018 11:01 AM CDT CARDIAC CATH REPORT - 08/21/2018 11:00 SCAN AM CDT RHYTHM STRIP - SCAN 08/21/2018 11:00 AM CDT RHYTHM STRIP - SCAN 08/21/2018 11:00 AM CDT CARDIAC CATH REPORT - 08/21/2018 11:00 SCAN AM CDT POCT-GLUCOSE METER Routine 08/20/2018 12:04 Resul ts for this PM CDT procedure are i n the results section. CBC W/PLT COUNT & AUTO Routine 08/20/2018 9:27 R esults for this DIFFERENTIAL AM CDT procedure are i n the results section. CBC W/PLT COUNT & AUTO Routine 08/20/2018 9:27 R esults for this DIFFERENTIAL AM CDT procedure are i n the results section. POCT-GLUCOSE METER Routine 08/20/2018 7:44 Resul ts for this AM CDT procedure are i n the results section. BASIC METABOLIC PANEL Routine 08/20/2018 3:38 Re sults for this (7) AM CDT procedure are i n the results section. POCT-GLUCOSE METER Routine 08/19/2018 8:49 Resul ts for this PM CDT procedure are i n the results section. POCT-GLUCOSE METER Routine 08/19/2018 6:22 Resul ts for this PM CDT procedure are i n the results section. POCT-GLUCOSE METER Routine 08/19/2018 12:43 Resul ts for this PM CDT procedure are i n the results section. POCT-GLUCOSE METER Routine 08/19/2018 8:22 Resul ts for this AM CDT procedure are i n the results section. POCT-GLUCOSE METER Routine 08/19/2018 4:23 Resul ts for this AM CDT procedure are i n the results section. BASIC METABOLIC PANEL Routine 08/19/2018 4:12 Re sults for this (7) AM CDT procedure are i n the results section. POCT-GLUCOSE METER Routine 08/18/2018 9:54 Resul ts for this PM CDT procedure are i n the results section. POCT-GLUCOSE METER Routine 08/18/2018 6:31 Resul ts for this PM CDT procedure are i n the results section. POCT-GLUCOSE METER Routine 08/18/2018 1:11 Resul ts for this PM CDT procedure are i n the results section. POCT-GLUCOSE METER Routine 08/18/2018 8:10 Resul ts for this AM CDT procedure are i n the results section. POCT-GLUCOSE METER Routine 08/18/2018 7:19 Resul ts for this AM CDT procedure are i n the results section. BASIC METABOLIC PANEL Routine 08/18/2018 5:03 Re sults for this (7) AM CDT procedure are i n the results section. POCT-GLUCOSE METER Routine 08/18/2018 4:02 Resul ts for this AM CDT procedure are i n the results section. POCT-GLUCOSE METER Routine 08/18/2018 3:47 Resul ts for this AM CDT procedure are i n the results section. POCT-GLUCOSE METER Routine 08/18/2018 3:39 Resul ts for this AM CDT procedure are i n the results section. POCT-GLUCOSE METER Routine 08/17/2018 10:17 Resul ts for this PM CDT procedure are i n the results section. POCT-GLUCOSE METER Routine 08/17/2018 7:28 Resul ts for this PM CDT procedure are i n the results section. POCT-GLUCOSE METER Routine 08/17/2018 1:08 Resul ts for this PM CDT procedure are i n the results section. POCT-GLUCOSE METER Routine 08/17/2018 12:16 Resul ts for this PM CDT procedure are i n the results section. CBC W/PLT COUNT & AUTO Routine 08/17/2018 10:25 R esults for this DIFFERENTIAL AM CDT procedure are i n the results section. CBC W/PLT COUNT & AUTO Routine 08/17/2018 10:25 R esults for this DIFFERENTIAL AM CDT procedure are i n the results section. POCT-GLUCOSE METER Routine 08/17/2018 8:06 Resul ts for this AM CDT procedure are i n the results section. BASIC METABOLIC PANEL Routine 08/17/2018 3:55 Re sults for this (7) AM CDT procedure are i n the results section. POCT-GLUCOSE METER Routine 08/16/2018 9:26 Resul ts for this PM CDT procedure are i n the results section. POCT-GLUCOSE METER Routine 08/16/2018 5:58 Resul ts for this PM CDT procedure are i n the results section. POCT-GLUCOSE METER Routine 08/16/2018 12:46 Resul ts for this PM CDT procedure are i n the results section. POCT-GLUCOSE METER Routine 08/16/2018 8:27 Resul ts for this AM CDT procedure are i n the results section. BASIC METABOLIC PANEL Routine 08/16/2018 4:01 Re sults for this (7) AM CDT procedure are i n the results section. POCT-GLUCOSE METER Routine 08/16/2018 3:02 Resul ts for this AM CDT procedure are i n the results section. CT PELVIS WITHOUT IV Routine 08/16/2018 2:38 Res ults for this CONTRAST AM CDT procedure are i n the results section. ECHOCARDIOGRAM REPORT - 08/15/2018 9:12 SCAN PM CDT POCT-GLUCOSE METER Routine 08/15/2018 8:55 Resul ts for this PM CDT procedure are i n the results section. POCT-GLUCOSE METER Routine 08/15/2018 6:11 Resul ts for this PM CDT procedure are i n the results section. LIMITED 2D Routine 08/15/2018 3:53 Results for this ECHOCARDIOGRAM PM CDT procedure are in the results section. POCT-GLUCOSE METER Routine 08/15/2018 1:45 Resul ts for this PM CDT procedure are i n the results section. POCT-GLUCOSE METER Routine 08/15/2018 8:00 Resul ts for this AM CDT procedure are i n the results section. BASIC METABOLIC PANEL Routine 08/15/2018 4:59 Re sults for this (7) AM CDT procedure are i n the results section. POCT-GLUCOSE METER Routine 08/14/2018 10:50 Resul ts for this PM CDT procedure are i n the results section. POCT-GLUCOSE METER Routine 08/14/2018 5:47 Resul ts for this PM CDT procedure are i n the results section. POCT-GLUCOSE METER Routine 08/14/2018 12:22 Resul ts for this PM CDT procedure are i n the results section. URINALYSIS W/ REFLEX Routine 08/14/2018 10:53 Res ults for this URINE CULTURE AM CDT procedure are in the results section. URINE CULTURE Routine 08/14/2018 10:53 Results fo r this AM CDT procedure are i n the results section. RESPIRATORY PANEL [facility] Add-On 08/14/2018 10:18 R esults for this AM CDT procedure are i n the results section. XR CHEST 1 VIEW RHETT 08/14/2018 9:13 Results for this PORTABLE/BEDSIDE AM CDT procedure a re in the results section. POCT-GLUCOSE METER Routine 08/14/2018 8:16 Resul ts for this AM CDT procedure are i n the results section. (CELLAVISION MANUAL Routine 08/14/2018 5:57 Resu lts for this DIFF) AM CDT procedure are i n the results section. CBC W/PLT COUNT & AUTO Routine 08/14/2018 5:57 R esults for this DIFFERENTIAL AM CDT procedure are i n the results section. CBC W/PLT COUNT & AUTO Routine 08/14/2018 5:57 R esults for this DIFFERENTIAL AM CDT procedure are i n the results section. PHOSPHORUS Routine 08/14/2018 5:57 Results for this AM CDT procedure are i n the results section. COMPREHENSIVE METABOLIC Routine 08/14/2018 5:57 Results for this PANEL AM CDT procedure are i n the results section. CALCIUM, IONIZED Routine 08/14/2018 5:57 Results for this AM CDT procedure are i n the results section. MAGNESIUM Routine 08/14/2018 5:57 Results for this AM CDT procedure are i n the results section. POCT-GLUCOSE METER Routine 08/13/2018 10:46 Resul ts for this PM CDT procedure are i n the results section. POCT-GLUCOSE METER Routine 08/13/2018 5:40 Resul ts for this PM CDT procedure are i n the results section. POCT-GLUCOSE METER Routine 08/13/2018 12:16 Resul ts for this PM CDT procedure are i n the results section. POCT-GLUCOSE METER Routine 08/13/2018 8:33 Resul ts for this AM CDT procedure are i n the results section. CBC W/PLT COUNT & AUTO Routine 08/13/2018 2:19 R esults for this DIFFERENTIAL AM CDT procedure are i n the results section. CBC W/PLT COUNT & AUTO Routine 08/13/2018 2:19 R esults for this DIFFERENTIAL AM CDT procedure are i n the results section. PHOSPHORUS Routine 08/13/2018 2:19 Results for this AM CDT procedure are i n the results section. COMPREHENSIVE METABOLIC Routine 08/13/2018 2:19 Results for this PANEL AM CDT procedure are i n the results section. CALCIUM, IONIZED Routine 08/13/2018 2:19 Results for this AM CDT procedure are i n the results section. MAGNESIUM Routine 08/13/2018 2:19 Results for this AM CDT procedure are i n the results section. POCT-GLUCOSE METER Routine 08/13/2018 2:15 Resul ts for this AM CDT procedure are i n the results section. POCT-GLUCOSE METER Routine 08/12/2018 9:02 Resul ts for this PM CDT procedure are i n the results section. POCT-GLUCOSE METER Routine 08/12/2018 5:39 Resul ts for this PM CDT procedure are i n the results section. POCT-GLUCOSE METER Routine 08/12/2018 12:01 Resul ts for this PM CDT procedure are i n the results section. POCT-GLUCOSE METER Routine 08/12/2018 7:31 Resul ts for this AM CDT procedure are i n the results section. POCT-GLUCOSE METER Routine 08/12/2018 4:33 Resul ts for this AM CDT procedure are i n the results section. XR CHEST 1 VIEW Routine 08/12/2018 4:12 Results for this PORTABLE/BEDSIDE AM CDT procedure a re in the results section. CBC W/PLT COUNT & AUTO Routine 08/12/2018 3:15 R esults for this DIFFERENTIAL AM CDT procedure are i n the results section. CBC W/PLT COUNT & AUTO Routine 08/12/2018 3:15 R esults for this DIFFERENTIAL AM CDT procedure are i n the results section. PHOSPHORUS Routine 08/12/2018 3:15 Results for this AM CDT procedure are i n the results section. COMPREHENSIVE METABOLIC Routine 08/12/2018 3:15 Results for this PANEL AM CDT procedure are i n the results section. CALCIUM, IONIZED Routine 08/12/2018 3:15 Results for this AM CDT procedure are i n the results section. MAGNESIUM Routine 08/12/2018 3:15 Results for this AM CDT procedure are i n the results section. POCT-GLUCOSE METER Routine 08/12/2018 12:00 Resul ts for this AM CDT procedure are i n the results section. POCT-GLUCOSE METER Routine 08/11/2018 9:31 Resul ts for this PM CDT procedure are i n the results section. POCT-GLUCOSE METER Routine 08/11/2018 5:47 Resul ts for this PM CDT procedure are i n the results section. MAGNESIUM Routine 08/11/2018 3:47 Results for this PM CDT procedure are i n the results section. BASIC METABOLIC PANEL Routine 08/11/2018 3:47 Re sults for this (7) PM CDT procedure are i n the results section. POCT-GLUCOSE METER Routine 08/11/2018 11:41 Resul ts for this AM CDT procedure are i n the results section. POCT-GLUCOSE METER Routine 08/11/2018 7:39 Resul ts for this AM CDT procedure are i n the results section. CBC W/PLT COUNT & AUTO Routine 08/11/2018 3:40 R esults for this DIFFERENTIAL AM CDT procedure are i n the results section. CBC W/PLT COUNT & AUTO Routine 08/11/2018 3:40 R esults for this DIFFERENTIAL AM CDT procedure are i n the results section. MAGNESIUM Routine 08/11/2018 3:40 Results for this AM CDT procedure are i n the results section. BASIC METABOLIC PANEL Routine 08/11/2018 3:40 Re sults for this (7) AM CDT procedure are i n the results section. XR CHEST 1 VIEW Routine 08/11/2018 3:26 Results for this PORTABLE/BEDSIDE AM CDT procedure a re in the results section. POCT-GLUCOSE METER Routine 08/10/2018 11:25 Resul ts for this PM CDT procedure are i n the results section. POCT-GLUCOSE METER Routine 08/10/2018 5:34 Resul ts for this PM CDT procedure are i n the results section. MAGNESIUM Routine 08/10/2018 3:35 Results for this PM CDT procedure are i n the results section. BASIC METABOLIC PANEL Routine 08/10/2018 3:35 Re sults for this (7) PM CDT procedure are i n the results section. XR CHEST 1 VIEW Routine 08/10/2018 2:50 Results for this PORTABLE/BEDSIDE PM CDT procedure a re in the results section. BLOOD GAS, ARTERIAL STAT 08/10/2018 2:27 Resu lts for this PM CDT procedure are i n the results section. LACTIC ACID, ARTERIAL STAT 08/10/2018 2:26 Re sults for this PM CDT procedure are i n the results section. POCT-GLUCOSE METER Routine 08/10/2018 11:42 Resul ts for this AM CDT procedure are i n the results section. POCT-GLUCOSE METER Routine 08/10/2018 7:42 Resul ts for this AM CDT procedure are i n the results section. POCT-GLUCOSE METER Routine 08/10/2018 6:36 Resul ts for this AM CDT procedure are i n the results section. POCT-GLUCOSE METER Routine 08/10/2018 5:42 Resul ts for this AM CDT procedure are i n the results section. XR CHEST 1 VIEW Routine 08/10/2018 5:07 Results for this PORTABLE/BEDSIDE AM CDT procedure a re in the results section. (CELLAVISION MANUAL Routine 08/10/2018 4:23 Resu lts for this DIFF) AM CDT procedure are i n the results section. CBC W/PLT COUNT & AUTO Routine 08/10/2018 4:23 R esults for this DIFFERENTIAL AM CDT procedure are i n the results section. CBC W/PLT COUNT & AUTO Routine 08/10/2018 4:23 R esults for this DIFFERENTIAL AM CDT procedure are i n the results section. BASIC METABOLIC PANEL Routine 08/10/2018 4:23 Re sults for this (7) AM CDT procedure are i n the results section. MAGNESIUM Routine 08/10/2018 4:23 Results for this AM CDT procedure are i n the results section. POCT-GLUCOSE METER Routine 08/09/2018 7:59 Resul ts for this PM CDT procedure are i n the results section. POCT-GLUCOSE METER Routine 08/09/2018 5:27 Resul ts for this PM CDT procedure are i n the results section. POCT-GLUCOSE METER Routine 08/09/2018 1:37 Resul ts for this PM CDT procedure are i n the results section. POCT-GLUCOSE METER Routine 08/09/2018 7:55 Resul ts for this AM CDT procedure are i n the results section. CBC W/PLT COUNT & AUTO Routine 08/09/2018 5:00 R esults for this DIFFERENTIAL AM CDT procedure are i n the results section. CBC W/PLT COUNT & AUTO Routine 08/09/2018 5:00 R esults for this DIFFERENTIAL AM CDT procedure are i n the results section. BASIC METABOLIC PANEL Routine 08/09/2018 4:59 Re sults for this (7) AM CDT procedure are i n the results section. XR CHEST 1 VIEW Routine 08/09/2018 4:35 Results for this PORTABLE/BEDSIDE AM CDT procedure a re in the results section. POCT-GLUCOSE METER Routine 08/08/2018 9:53 Resul ts for this PM CDT procedure are i n the results section. POCT-GLUCOSE METER Routine 08/08/2018 6:31 Resul ts for this PM CDT procedure are i n the results section. XR CHEST 1 VIEW Routine 08/08/2018 3:35 Results for this PORTABLE/BEDSIDE PM CDT procedure a re in the results section. XR CHEST 1 VIEW Routine 08/08/2018 1:26 Results for this PORTABLE/BEDSIDE PM CDT procedure a re in the results section. POCT-GLUCOSE METER Routine 08/08/2018 12:15 Resul ts for this PM CDT procedure are i n the results section. POCT-GLUCOSE METER Routine 08/08/2018 7:47 Resul ts for this AM CDT procedure are i n the results section. XR CHEST 1 VIEW Routine 08/08/2018 4:49 Results for this PORTABLE/BEDSIDE AM CDT procedure a re in the results section. CBC W/PLT COUNT & AUTO Routine 08/08/2018 3:53 R esults for this DIFFERENTIAL AM CDT procedure are i n the results section. BASIC METABOLIC PANEL Routine 08/08/2018 3:53 Re sults for this (7) AM CDT procedure are i n the results section. MAGNESIUM Routine 08/08/2018 3:53 Results for this AM CDT procedure are i n the results section. CBC W/PLT COUNT & AUTO Routine 08/08/2018 3:53 R esults for this DIFFERENTIAL AM CDT procedure are i n the results section. POCT-GLUCOSE METER Routine 08/07/2018 10:10 Resul ts for this PM CDT procedure are i n the results section. MAGNESIUM STAT 08/07/2018 9:35 Results for this PM CDT procedure are i n the results section. BASIC METABOLIC PANEL STAT 08/07/2018 9:35 Re sults for this (7) PM CDT procedure are i n the results section. POCT-ACT Routine 08/07/2018 6:55 Results for this PM CDT procedure are i n the results section. POCT-ACT Routine 08/07/2018 6:20 Results for this PM CDT procedure are i n the results section. POCT-ACT Routine 08/07/2018 5:45 Results for this PM CDT procedure are i n the results section. POCT-ACT Routine 08/07/2018 5:23 Results for this PM CDT procedure are i n the results section. R & L CATH / CORONARY 08/07/2018 1:32 Congestive hear t ANGIOS / PCI PM CDT failure, unspecified HF chronicity, unspecified heart failure type (HCC) POCT-GLUCOSE METER Routine 08/07/2018 12:21 Resul ts for this PM CDT procedure are i n the results section. POCT-GLUCOSE METER Routine 08/07/2018 7:27 Resul ts for this AM CDT procedure are i n the results section. XR CHEST 1 VIEW Routine 08/07/2018 5:41 Results for this PORTABLE/BEDSIDE AM CDT procedure a re in the results section. CBC W/PLT COUNT & AUTO Routine 08/07/2018 5:01 R esults for this DIFFERENTIAL AM CDT procedure are i n the results section. CBC W/PLT COUNT & AUTO Routine 08/07/2018 5:01 R esults for this DIFFERENTIAL AM CDT procedure are i n the results section. PHOSPHORUS Routine 08/07/2018 5:01 Results for this AM CDT procedure are i n the results section. COMPREHENSIVE METABOLIC Routine 08/07/2018 5:01 Results for this PANEL AM CDT procedure are i n the results section. CALCIUM, IONIZED Routine 08/07/2018 5:01 Results for this AM CDT procedure are i n the results section. MAGNESIUM Routine 08/07/2018 5:01 Results for this AM CDT procedure are i n the results section. ECHOCARDIOGRAM REPORT - 08/06/2018 9:21 SCAN PM CDT POCT-GLUCOSE METER Routine 08/06/2018 9:19 Resul ts for this PM CDT procedure are i n the results section. POCT-GLUCOSE METER Routine 08/06/2018 5:05 Resul ts for this PM CDT procedure are i n the results section. POCT-GLUCOSE METER Routine 08/06/2018 12:44 Resul ts for this PM CDT procedure are i n the results section. 2D ECHO W/ DOPPLER Routine 08/06/2018 10:34 Resul ts for this (CW/PW/COLOR) AM CDT procedure are in the results section. POCT-GLUCOSE METER Routine 08/06/2018 7:26 Resul ts for this AM CDT procedure are i n the results section. XR CHEST 1 VIEW Routine 08/06/2018 4:12 Results for this PORTABLE/BEDSIDE AM CDT procedure a re in the results section. CBC W/PLT COUNT & AUTO Routine 08/06/2018 4:03 R esults for this DIFFERENTIAL AM CDT procedure are i n the results section. APTT STAT 08/06/2018 4:03 Results for this AM CDT procedure are i n the results section. BASIC METABOLIC PANEL Routine 08/06/2018 4:03 Re sults for this (7) AM CDT procedure are i n the results section. MAGNESIUM Routine 08/06/2018 4:03 Results for this AM CDT procedure are i n the results section. CBC W/PLT COUNT & AUTO Routine 08/06/2018 4:03 R esults for this DIFFERENTIAL AM CDT procedure are i n the results section. POCT-GLUCOSE METER Routine 08/05/2018 9:44 Resul ts for this PM CDT procedure are i n the results section. POCT-GLUCOSE METER Routine 08/05/2018 5:08 Resul ts for this PM CDT procedure are i n the results section. POCT-GLUCOSE METER Routine 08/05/2018 11:17 Resul ts for this AM CDT procedure are i n the results section. POCT-GLUCOSE METER Routine 08/05/2018 7:15 Resul ts for this AM CDT procedure are i n the results section. XR CHEST 1 VIEW Routine 08/05/2018 5:32 Results for this PORTABLE/BEDSIDE AM CDT procedure a re in the results section. CBC W/PLT COUNT & AUTO Routine 08/05/2018 5:29 R esults for this DIFFERENTIAL AM CDT procedure are i n the results section. BASIC METABOLIC PANEL Routine 08/05/2018 5:29 Re sults for this (7) AM CDT procedure are i n the results section. CBC W/PLT COUNT & AUTO Routine 08/05/2018 5:29 R esults for this DIFFERENTIAL AM CDT procedure are i n the results section. MAGNESIUM Routine 08/05/2018 5:29 Results for this AM CDT procedure are i n the results section. POCT-GLUCOSE METER Routine 08/04/2018 10:02 Resul ts for this PM CDT procedure are i n the results section. POCT-GLUCOSE METER Routine 08/04/2018 6:17 Resul ts for this PM CDT procedure are i n the results section. URINALYSIS W/ REFLEX Routine 08/04/2018 2:05 Res ults for this URINE CULTURE PM CDT procedure are in the results section. URINE CULTURE Routine 08/04/2018 2:05 Results fo r this PM CDT procedure are i n the results section. POCT-GLUCOSE METER Routine 08/04/2018 1:01 Resul ts for this PM CDT procedure are i n the results section. OCCULT BLOOD, STOOL Routine 08/04/2018 9:51 Resu lts for this AM CDT procedure are i n the results section. C. DIFFICILE GDH TOXIN Routine 08/04/2018 9:51 R esults for this AM CDT procedure are i n the results section. POCT-GLUCOSE METER Routine 08/04/2018 7:59 Resul ts for this AM CDT procedure are i n the results section. CBC W/PLT COUNT & AUTO Routine 08/04/2018 5:44 R esults for this DIFFERENTIAL AM CDT procedure are i n the results section. TROPONIN I STAT 08/04/2018 5:44 Results for this AM CDT procedure are i n the results section. PHOSPHORUS Routine 08/04/2018 5:44 Results for this AM CDT procedure are i n the results section. COMPREHENSIVE METABOLIC Routine 08/04/2018 5:44 Results for this PANEL AM CDT procedure are i n the results section. CALCIUM, IONIZED Routine 08/04/2018 5:44 Results for this AM CDT procedure are i n the results section. CBC W/PLT COUNT & AUTO Routine 08/04/2018 5:44 R esults for this DIFFERENTIAL AM CDT procedure are i n the results section. MAGNESIUM Routine 08/04/2018 5:44 Results for this AM CDT procedure are i n the results section. XR CHEST 1 VIEW Routine 08/04/2018 3:58 Results for this PORTABLE/BEDSIDE AM CDT procedure a re in the results section. POCT-GLUCOSE METER Routine 08/03/2018 10:02 Resul ts for this PM CDT procedure are i n the results section. ECHOCARDIOGRAM REPORT - 08/03/2018 9:22 SCAN PM CDT POCT-GLUCOSE METER Routine 08/03/2018 6:00 Resul ts for this PM CDT procedure are i n the results section. POCT-GLUCOSE METER Routine 08/03/2018 11:54 Resul ts for this AM CDT procedure are i n the results section. LIMITED 2D RHETT 08/03/2018 11:17 Results for this ECHOCARDIOGRAM AM CDT procedure are in the results section. CREATINE KINASE (CK) Routine 08/03/2018 9:24 Res ults for this AM CDT procedure are i n the results section. TROPONIN I Routine 08/03/2018 9:24 Results for this AM CDT procedure are i n the results section. ECG 12-LEAD Routine 08/03/2018 8:00 AM CDT Procedure Note - Interface, External Ris In - 08/03/2018 8:07 AM CDT Ventricular Rate 96 BPM Atrial Rate 96 BPM P-R Interval 176 ms QRS Duration 110 ms Q-T Interval 390 ms QTC Calculation(Bazett) 492 ms P [place] 68 degrees R [place] 41 degrees T [place] 107 degrees Normal sinus rhythm Low voltage QRS Incomplete left bundle branc h block Nonspecific ST and T wave ab normality Prolonged QT Abnormal ECG When compared with ECG of 06:46, Incomplete left bundle branc h block is now Present ECG 12-LEAD Routine 08/03/2018 8:00 AM CDT Resu lts for this procedure are i n the results section . XR CHEST 1 VIEW Routine 08/03/2018 7:24 AM CDT R esults for this PORTABLE/BEDSIDE procedure a re in the results section . CBC W/PLT COUNT & AUTO Routine 08/03/2018 1:52 AM CDT Results for this DIFFERENTIAL procedure are i n the results section . RETICULOCYTE COUNT Routine 08/03/2018 1:52 AM CDT Results for this procedure are i n the results section . PHOSPHORUS Routine 08/03/2018 1:52 AM CDT Resu lts for this procedure are i n the results section . COMPREHENSIVE METABOLIC Routine 08/03/2018 1:52 AM CDT Results for this PANEL procedure are i n the results section . CBC W/PLT COUNT & AUTO Routine 08/03/2018 1:52 AM CDT Results for this DIFFERENTIAL procedure are i n the results section . MAGNESIUM Routine 08/03/2018 1:52 AM CDT Resu lts for this procedure are i n the results section . IRON, TIBC, % SAT. (WITHOUT Routine 08/03/2018 1:51 AM CDT Results for this FERRITIN) procedure are i n the results section . FERRITIN Routine 08/03/2018 1:51 AM CDT Resu lts for this procedure are i n the results section . CALCIUM, IONIZED Routine 08/03/2018 1:51 AM CDT Results for this procedure are i n the results section . VITAMIN B12 AND FOLATE Routine 08/03/2018 1:51 AM CDT Results for this procedure are i n the results section . POCT-GLUCOSE METER Routine 08/03/2018 1:10 AM CDT Results for this procedure are i n the results section . POCT-GLUCOSE METER Routine 08/02/2018 8:37 PM CDT Results for this procedure are i n the results section . POCT-GLUCOSE METER Routine 08/02/2018 4:36 PM CDT Results for this procedure are i n the results section . POCT-GLUCOSE METER Routine 08/02/2018 12:01 PM CDT Results for this procedure are i n the results section . APTT STAT 08/02/2018 12:01 PM CDT Resu lts for this procedure are i n the results section . POCT-GLUCOSE METER Routine 08/02/2018 11:06 AM CDT Results for this procedure are i n the results section . POCT-GLUCOSE METER Routine 08/02/2018 10:08 AM CDT Results for this procedure are i n the results section . POCT-GLUCOSE METER Routine 08/02/2018 9:11 AM CDT Results for this procedure are i n the results section . POCT-GLUCOSE METER Routine 08/02/2018 8:02 AM CDT Results for this procedure are i n the results section . APTT STAT 08/02/2018 8:02 AM CDT Resu lts for this procedure are i n the results section . POCT-GLUCOSE METER Routine 08/02/2018 7:06 AM CDT Results for this procedure are i n the results section . ECG 12-LEAD Routine 08/02/2018 6:46 AM CDT Procedure Note - Interface, External Ris In - 08/02/2018 3:19 PM CDT Ventricular Rate 101 BPM Atrial Rate 101 BPM P-R Interval 184 ms QRS Duration 90 ms Q-T Interval 382 ms QTC Calculation(Bazett) 495 ms P [place] 80 degrees R [place] 60 degrees T [place] 61 degrees Sinus tachycardia Low voltage QRS Septal infarct (cited on or before 31-JUL-2018) Abnormal ECG When compared with ECG of 22:17, ST now depressed in Inferior leads ECG 12-LEAD STAT 08/02/2018 6:46 AM Results for this CDT procedure are i n the results section. US RENAL COMPLETE Routine 08/02/2018 5:48 AM Res ults for this CDT procedure are i n the results section. APTT STAT 08/02/2018 4:11 AM Results for this CDT procedure are i n the results section. CBC W/PLT COUNT & AUTO Routine 08/02/2018 3:52 AM Results for this DIFFERENTIAL CDT procedure are i n the results section. HGB/HCT (H&H) - STAT STAT 08/02/2018 3:52 AM Results for this LAB CDT procedure are i n the results section. GLUCOSE-STAT LAB STAT 08/02/2018 3:52 AM Resu lts for this CDT procedure are i n the results section. POTASSIUM-STAT LAB STAT 08/02/2018 3:52 AM Re sults for this CDT procedure are i n the results section. SODIUM NA-STAT LAB STAT 08/02/2018 3:52 AM Re sults for this CDT procedure are i n the results section. LACTIC ACID, ARTERIAL Routine 08/02/2018 3:52 AM Results for this CDT procedure are i n the results section. BLOOD GAS, ARTERIAL Routine 08/02/2018 3:52 AM R esults for this CDT procedure are i n the results section. PHOSPHORUS Routine 08/02/2018 3:52 AM Results for this CDT procedure are i n the results section. COMPREHENSIVE METABOLIC Routine 08/02/2018 3:52 AM Results for this PANEL CDT procedure are i n the results section. CALCIUM, IONIZED Routine 08/02/2018 3:52 AM Resu lts for this CDT procedure are i n the results section. URIC ACID Routine 08/02/2018 3:52 AM Results for this CDT procedure are i n the results section. B-TYPE NATRIURETIC Routine 08/02/2018 3:52 AM Re sults for this FACTOR (BNP) CDT procedure are i n the results section. CBC W/PLT COUNT & AUTO Routine 08/02/2018 3:52 AM Results for this DIFFERENTIAL CDT procedure are i n the results section. MAGNESIUM Routine 08/02/2018 3:52 AM Results for this CDT procedure are i n the results section. XR CHEST 1 VIEW STAT 08/02/2018 3:45 AM Resul ts for this PORTABLE/BEDSIDE CDT procedure a re in the results section. HGB/HCT (H&H) - STAT STAT 08/01/2018 11:47 PM Results for this LAB CDT procedure are i n the results section. GLUCOSE-STAT LAB STAT 08/01/2018 11:47 PM Resu lts for this CDT procedure are i n the results section. POTASSIUM-STAT LAB STAT 08/01/2018 11:47 PM Re sults for this CDT procedure are i n the results section. SODIUM NA-STAT LAB STAT 08/01/2018 11:47 PM Re sults for this CDT procedure are i n the results section. BLOOD GAS, ARTERIAL STAT 08/01/2018 11:47 PM R esults for this CDT procedure are i n the results section. LACTIC ACID, ARTERIAL STAT 08/01/2018 11:47 PM Results for this CDT procedure are i n the results section. RRL CRITICAL LABS STAT 08/01/2018 11:47 PM Res ults for this (ABG,NA,K,H&H,GLUCOSE) CDT proce dure are in the results section. PERIPHERAL VASCULAR 08/01/2018 9:23 PM REPORT - SCAN CDT APTT STAT 08/01/2018 9:22 PM Results for this CDT procedure are i n the results section. ECHOCARDIOGRAM REPORT - 08/01/2018 9:21 PM SCAN CDT CALCIUM, IONIZED STAT 08/01/2018 7:07 PM Resu lts for this CDT procedure are i n the results section. HGB/HCT (H&H) - STAT STAT 08/01/2018 7:07 PM Results for this LAB CDT procedure are i n the results section. GLUCOSE-STAT LAB STAT 08/01/2018 7:07 PM Resu lts for this CDT procedure are i n the results section. POTASSIUM-STAT LAB STAT 08/01/2018 7:07 PM Re sults for this CDT procedure are i n the results section. SODIUM NA-STAT LAB STAT 08/01/2018 7:07 PM Re sults for this CDT procedure are i n the results section. BLOOD GAS, ARTERIAL STAT 08/01/2018 7:07 PM R esults for this CDT procedure are i n the results section. RRL CRITICAL LABS STAT 08/01/2018 7:07 PM Res ults for this (ABG,NA,K,H&H,GLUCOSE) CDT proce dure are in the results section. FIBRINOGEN Routine 08/01/2018 7:07 PM Results for this CDT procedure are i n the results section. PT/APTT Routine 08/01/2018 7:07 PM Results for this CDT procedure are i n the results section. OXYGEN SATURATION, Routine 08/01/2018 7:07 PM Re sults for this MEASURED CDT procedure are i n the results section. LACTIC ACID, ARTERIAL Routine 08/01/2018 7:07 PM Results for this CDT procedure are i n the results section. COMPREHENSIVE METABOLIC Routine 08/01/2018 7:07 PM Results for this PANEL CDT procedure are i n the results section. CBC (HEMOGRAM ONLY) Routine 08/01/2018 7:07 PM R esults for this CDT procedure are i n the results section. ELECTROLYTE PANEL RHETT 08/01/2018 7:07 PM Res ults for this CDT procedure are i n the results section. HEMOGLOBIN AND STAT 08/01/2018 4:16 PM Result s for this HEMATOCRIT CDT procedure are i n the results section. POCT-ACT Routine 08/01/2018 4:01 PM Results for this CDT procedure are i n the results section. POCT-ACT Routine 08/01/2018 2:51 PM Results for this CDT procedure are i n the results section. L CATH & PCI 08/01/2018 2:50 PM Non-STEMI (non-ST CDT elevated myocardial infarction) (HCC) POCT-GLUCOSE METER Routine 08/01/2018 12:15 PM Re sults for this CDT procedure are i n the results section. POCT-GLUCOSE METER Routine 08/01/2018 8:10 AM Re sults for this CDT procedure are i n the results section. PLATELET AGGREGATION: STAT 08/01/2018 8:04 AM Results for this FUNCTION SCREEN CDT procedure ar e in the results section. POCT-GLUCOSE METER Routine 08/01/2018 6:34 AM Re sults for this CDT procedure are i n the results section. HEPATIC FUNCTION PANEL STAT 08/01/2018 5:25 AM Results for this CDT procedure are i n the results section. MAGNESIUM Routine 08/01/2018 5:25 AM Results for this CDT procedure are i n the results section. BASIC METABOLIC PANEL Routine 08/01/2018 5:25 AM Results for this (7) CDT procedure are i n the results section. TROPONIN I STAT 08/01/2018 5:25 AM Results for this CDT procedure are i n the results section. XR CHEST 1 VIEW Routine 08/01/2018 4:24 AM Resul ts for this PORTABLE/BEDSIDE CDT procedure a re in the results section. CBC W/PLT COUNT & AUTO Routine 08/01/2018 4:18 AM Results for this DIFFERENTIAL CDT procedure are i n the results section. THROMBIN TIME Routine 08/01/2018 4:18 AM Results for this CDT procedure are i n the results section. PROTHROMBIN TIME/INR Routine 08/01/2018 4:18 AM Results for this CDT procedure are i n the results section. CBC W/PLT COUNT & AUTO Routine 08/01/2018 4:18 AM Results for this DIFFERENTIAL CDT procedure are i n the results section. APTT Routine 08/01/2018 4:18 AM Results for this CDT procedure are i n the results section. 2D ECHO W/ DOPPLER STAT 08/01/2018 2:05 AM Re sults for this (CW/PW/COLOR) CDT procedure are in the results section. CAROTID DOPPLER Routine 08/01/2018 1:11 AM Resul ts for this BILATERAL CDT procedure are i n the results section. XR CHEST 1 VIEW STAT 07/31/2018 11:56 PM Resul ts for this PORTABLE/BEDSIDE CDT procedure a re in the results section. ECG 12-LEAD RHETT 07/31/2018 10:17 PM Results for this CDT procedure are i n the results section. XR CHEST 1 VIEW Routine 07/31/2018 8:40 PM Resul ts for this PORTABLE/BEDSIDE CDT procedure a re in the results section. CBC W/PLT COUNT & AUTO Routine 07/31/2018 8:12 PM Results for this DIFFERENTIAL CDT procedure are i n the results section. APTT Routine 07/31/2018 8:12 PM Results for this CDT procedure are i n the results section. PROTHROMBIN TIME/INR Routine 07/31/2018 8:12 PM Results for this CDT procedure are i n the results section. CBC W/PLT COUNT & AUTO Routine 07/31/2018 8:12 PM Results for this DIFFERENTIAL CDT procedure are i n the results section. B-TYPE NATRIURETIC Routine 07/31/2018 8:12 PM Re sults for this FACTOR (BNP) CDT procedure are i n the results section. TROPONIN I STAT 07/31/2018 8:12 PM Results for this CDT procedure are i n the results section. TSH/FREE T4 IF Routine 07/31/2018 8:12 PM Result s for this INDICATED CDT procedure are i n the results section. HEPATIC FUNCTION PANEL Routine 07/31/2018 8:12 PM Results for this CDT procedure are i n the results section. BASIC METABOLIC PANEL Routine 07/31/2018 8:12 PM Results for this (7) CDT procedure are i n the results section. ECG 12-LEAD STAT 07/31/2018 7:38 PM Results for this CDT procedure are i n the results section. ECG 12-LEAD Routine 07/31/2018 7:38 PM CDT Procedure Note - Interface, External Ris In - 07/31/2018 7:42 PM CDT Ventricular Rate 66 BPM Atrial Rate 66 BPM P-R Interval 188 ms QRS Duration 96 ms Q-T Interval 448 ms QTC Calculation(Bazett) 469 ms P [place] 52 degrees R [place] 15 degrees T [place] 79 degrees Normal sinus rhythm Septal infarct , age undeter mined Abnormal ECG No previous ECGs available after 07/24/2018 Results VASCULAR DIAGRAM -SCAN (05/31/2019 12:41 PM CDT)Only the most recent of6 results within the time period is included. Narrative Performed At This result has an attachment that is no t available. CARDIAC CATH REPORT - SCAN (05/31/2019 10:31 AM CDT) Narrative Performed At This result has an attachment that is no t available. RHYTHM STRIP - SCAN (05/31/2019 10:31 AM CDT)Only the most recent of11 results within the time period is included. Narrative Performed At This result has an attachment that is no t available. PERIPHERAL VASCULAR REPORT - SCAN (05/29/2019 9:10 PM CDT)Only the most recent of3 resultswithin the time period is included. Narrative Performed At This result has an attachment that is no t available. POC-Glucose meter (05/29/2019 1:24 PM CDT)Only the most recent of154 results within the time period is included. POC-Glucose Meter 298 (H)Comment: : Notified 70 - 110 mg/dL [facility] RN/MD: TESTED AT [facility] ENTER [address] [place] [address], [id number]: Java Sql Developer/Copywriting Intern ID = [id number] for LIZ WATSON Specimen Blood Performing Organization Address City/State/Zipcode Phone Number [facility] MEDICAL [address] [place] [phone] CENTER EKG-SCANNED (05/29/2019 12:10 PM CDT)Only the most recent of6 resultswithin the time period is included. Narrative Performed At This result has an attachment that is no t available. Platelet Aggregation: Drug Effect (05/29/2019 9:27 AM CDT) Arachadonic Acid 13 (L) 63 - 89 % [facility] ER Interpretation Decreased response to arachi donic acid suggests aspirin-like effect. [facility] Decreased aggregation with A DP which indicates platelet dysfunction that may be due to medication effect, uremia, or other platelet function disorders.Clinical correlation is required. [facility] Pathologist: Talia Villarreal MD [facility] (electronic signature) [facility] Platelets 184 150 - 450 K/CU MM [facility] ER ADP 11 (L) 62 - 100 % [facility] ER Platelet Rich Plasma 243 200 - 300 k/cu mm [facility] Specimen Blood Narrative Performed At Platelet function studies by aggregation [facility] methodology on samples with platelet count <75,000/CU MM are unreliable; platelet function assessment should not be based on a single test. Java Sql Developer ID - [id number] Address [facility]/Zipcode Phone Number [address] [address] [place] Calcium, Ionized (05/29/2019 4:41 AM CDT)Only the most recent of16 results within the time period is included. Calcium, Ion 1.16 1.12 - 1.27 mmol/L [facility] pH, Blood 7.40 [facility] Specimen Blood Performing Organization Address [facility] Cent[facility]ode Phone Number [address] [address] [place] CBC with platelet count + automated diff (05/29/2019 4:41 AM CDT)Only the most recent of32 resultswithin the time period is included. WBC 6.4 3.5 - 10.5 K/L [facility] RBC 3.26 (L) 3.93 - 5.22 M/L [facility] Hemoglobin 10.1 (L) 11.2 - 15.7 GM/DL [facility] Hematocrit 30.3 (L) 34.1 - 44.9 % [facility] MCV 92.9 79.4 - 94.8 fL [facility] MCH 31.0 25.6 - 32.2 pg [facility] MCHC 33.3 32.2 - 35.5 GM/DL [facility] RDW 13.1 11.7 - 14.4 % [facility] Platelets 183 150 - 450 K/CU MM [facility] MPV 9.9 9.4 - 12.3 fL [facility] nRBC 0 0 - 0 /100 WBC [facility] % Neutros 70 % [facility] % Lymphs 19 % [facility] % Monos 9 % [facility] % Eos 1 % [facility] % Baso 1 % [facility] # Neutros 4.47 1.56 - 6.13 K/L [facility] # Lymphs 1.20 1.18 - 3.74 K/L [facility] # Monos 0.59 (H) 0.24 - 0.36 K/L [facility] # Eos 0.08 0.04 - 0.36 K/L [facility] # Baso 0.04 0.01 - 0.08 K/L [facility] Immature Granulocytes-Relative 0 0 - 1 % C [facility] Specimen Blood Performing Organization Address City/State/Zipcode Phone Number [facility] [address] [place] [address] CENTER CBC (hemogram only) (05/29/2019 4:41 AM CDT)Only the most recent of11 results within the time period is included. WBC 6.4 3.5 - 10.5 K/L [facility] RBC 3.26 (L) 3.93 - 5.22 M/L [facility] Hemoglobin 10.1 (L) 11.2 - 15.7 GM/DL [facility] Hematocrit 30.3 (L) 34.1 - 44.9 % [facility] MCV 92.9 79.4 - 94.8 fL [facility] MCH 31.0 25.6 - 32.2 pg [facility] MCHC 33.3 32.2 - 35.5 GM/DL [facility] RDW 13.1 11.7 - 14.4 % [facility] Platelets 183 150 - 450 K/CU MM [facility] MPV 9.9 9.4 - 12.3 fL [facility] nRBC 0 0 - 0 /100 WBC [facility] Specimen Blood Performing Organization Address City/[facility]/Zipcode Phone Number [address] [address] CENTER Uric acid (05/29/2019 4:41 AM CDT)Only the most recent of3 resultswithin the time period is included. Uric Acid 9.0 (H) 2.6 - 7.2 mg/dL [facility] Specimen Blood Narrative Performed At Java Sql Developer ID - MELI M [facility] Performing Organization Address City/[facility] Centercova Phone Number [address] [address] CENTER Phosphorus (05/29/2019 4:41 AM CDT)Only the most recent of16 resultswithin the time period is included. Phosphorus 3.7 2.3 - 4.7 mg/dL [facility] Specimen Blood Narrative Performed At Java Sql Developer ID - MELI M [facility] Performing Organization Address City/[facility]/Zipcode Phone Number [address] [address] CENTER B-type Natriuretic Factor (BNP) (05/29/2019 4:41 AM CDT)Only the most recent of 13 resultswithin the time period is included. BNP 1,228 (H) 0 - 100 pg/mL [facility] Specimen Blood Narrative Performed At Java Sql Developer STEPHANE Ott [facility] Performing Organization Address City/[facility]/Zipcode Phone Number [facility] [address] [place] [address] CENTER Magnesium (05/29/2019 4:41 AM CDT)Only the most recent of29 resultswithin the time period is included. Magnesium 2.1 1.6 - 2.6 mg/dL [facility] Specimen Blood Narrative Performed At Java Sql Developer ID - MELI Ott [facility] Performing Organization Address City/[facility]/Zipcode Phone Number [facility] [address] [place] [address] CENTER Creatine Kinase (CK) (05/29/2019 4:41 AM CDT)Only the most recent of2 results within the time period is included. Total CK 94 29 - 200 U/L [facility] Specimen Blood Narrative Performed At Java Sql Developer STEPHANE - MELI Ott [facility] Performing Organization Address City/[facility]/Zipcode Phone Number [facility] [address] [place] [address] CENTER Basic metabolic panel (05/29/2019 4:41 AM CDT)Only the most recent of32 results within the time period is included. Sodium 135 (L) 136 - 145 meq/L [facility] Potassium 3.8 3.5 - 5.1 meq/L [facility] Chloride 98 98 - 107 meq/L [facility] CO2 27 22 - 29 meq/L [facility] BUN 73 (H) 7 - 21 mg/dL [facility] Creatinine 3.31 (H) 0.57 - 1.25 mg/dL [facility] Glucose 269 (H) 70 - 105 mg/dL [facility] HE [facility]TH [facility] Calcium 9.1 8.4 - 10.2 mg/dL [facility] EGFR 13Comment: ESTIMATED GFR IS mL/min/1.73 sq m [facility] NOT ACCURATE CREATININE [facility] CLEARANCE IN PREDICTING GLOMERULAR FILTRATION RATE. ESTIMATED GFR IS NOT APPLICABLE FOR DIALYSIS PATIENTS. Specimen Blood Narrative Performed At Java Sql Developer ID - MELI M [facility] Performing Organization Address City/State/Zipcode Phone Number [facility] [address] [place] [address] CENTER US renal complete (05/29/2019 1:30 AM CDT)Only the most recent of3 results within the time period is included. Specimen Narrative Performed At FINAL REPORT GE RIS U/S, RENAL, COMPLETE Comparison 08/02/2018, 03/22/2019 Clinical History:OTIS Discussion: Sonographic evaluation of the kidneys is performed. Right kidney:8.9 x 4.5 x 4.6 cm, with cortical thi ckness of 1.1 cm. Normal cortical echogenicity.No mass .Interpolar shadowing echogenic foci measuring between 7 mm an d 14 mm, similar to prior exam. No hydronephrosis. Left kidney: 8.7 x 4.7 x 5.3 cm, with co rtical thickness of 1.1 cm. Normal cortical echogenicity.Superolateral 1.5 cm hypoechoic cyst. No shadowing calculus.No hydronephro sis. Limited doppler evaluation of bilateral main renal arteries and veins demonstrate patency. Bladder:Unremarkable. Impression: Stable exam without acute finding. Nonobstructing right nephrolithiasis. Left renal 1.5 cm cyst is stable in size . Signed: Ochoa Fry MD Report Verified Date/Time:05/29/2019 03:58:20 Procedure Note Interface, External Ris In - 05/29/2019 4:00 AM CDT FINAL REPORT U/S, RENAL, COMPLETE Comparison 08/02/2018, 03/22/2019 Clinical History: OTIS Discussion: Sonographic evaluation of the kidneys is performed. Right kidney: 8.9 x 4.5 x 4.6 cm, with cortical thickness of 1.1 cm. Normal cortical echogenicity. No mass. Interpolar shadowing echogenic foci measuring between 7 mm an d 14 mm, similar to prior exam. No hydronephrosis. Left kidney: 8.7 x 4.7 x 5.3 cm, with co rtical thickness of 1.1 cm. Normal cortical echogenicity. Superolat eral 1.5 cm hypoechoic cyst. No shadowing calculus. No hydronephrosi s. Limited doppler evaluation of bilateral main renal arteries and veins demonstrate patency. Bladder: Unremarkable. Impression: Stable exam without acute finding. Nonobstructing right nephrolithiasis. Left renal 1.5 cm cyst is stable in size . Signed: Ochoa Fry MD Report Verified Date/Time: 05/29/2019 0 3:58:20 Performing Organization Address City/[facility] Phone Number GE RIS POC ACTIVATED CLOTTING TIME (05/28/2019 8:28 PM CDT)Only the most recent of23 resultswithin the time period is included. Activated Clotting Time 136Comment: : 74-137 sec [facility] seconds, Baseline: [facility] AT [address], [id number]: Java Sql Developer/Copywriting Intern ID = [id number] for TAVIADARIAN Specimen Blood Performing Organization Address [facility] Medical [place] [address] CENTER Urinalysis w/Microscopic (05/28/2019 6:20 PM CDT)Only the most recent of5 resultswithin the time period is included. Color, UA Light Yellow [facility] Clarity, UA Clear [facility] Specific [place], UA 1.012 1.001 - 1.035 [facility] pH, UA 6.0 5.0 - 8.0 [facility] Protein, UA 20 mg/dL (A) Negative [facility] Glucose, UA 150 mg/dL (A) Negative [facility] Ketones, UA Negative Negative [facility] Bilirubin, UA Negative Negative [facility] Blood, UA Trace (A) Negative [facility] Nitrite, UA Negative Negative [facility] Leukocytes, UA Negative Negative [facility] Urobilinogen, UA 0.2 0.2 - 1.0 mg/dL [facility] RBC, UA 1 /HPF [facility] WBC, UA <1 /HPF [facility] Bacteria, UA Many [facility] Specimen Source [facility] Specimen Urine Narrative Performed At Java Sql Developer ID - [auto] [facility] Java Sql Developer ID - ny Performing Organization Address City/State/Zipcode Phone Number [facility] [address] [place] [address] CENTER Venous doppler legs bilateral (05/28/2019 5:05 PM CDT) Ejection Fraction [facility] ECHO HEAR TLAB MKCKESSON CPACS Specimen Impressions Performed At Right Impression [facility] ECHO HEARTLAB MK[facility]ON CPACS 1. There is no deep venous obstruction in the profunda femoral, femoral, popliteal, posterior tibial or peroneal veins. 2. The common femoral vein was not visualized due to a bandage. 3. The great saphenous vein was not visualized due to a bandage. Left Impression 1. There is no deep venous obstruction in the common femoral, profunda femoral, femoral, popliteal, posterior tibial or peroneal veins. 2. There is no superficial venous obstruction in the great saphenous vein. Conclusions Summary Venous duplex imaging and compression of the bilateral lower extremities were performed. The veins were adequately visualized except as stated above. The bilateral venous systems were patent and compressible with no evidence of thrombus where visualized. The venous Doppler waveforms were phasic with respiration . Signature Velocities are measured in cm/s ; Diameters are measured in cm Narrative Performed At LAB - Lower Extremities DVT Study [facility] ECHO HEARTLAB MKCKESSON [facility] Demographics Patient Name SUZAN ARECHIGA Date of Study05/28/2019 CAPRICE CINDY [id number] Visit Number [id number] Gender Female Accession Number [id number] Date of Birth1940 [facility] Number [id number] Physician SonographerSly [place] RVTInterpreting Physician MaximusMD Procedure Type of Study: Veins: Lower Extremities DVT Study, VENOUS DOPPLER LEG, BILATERAL. Indications for Study:Dyspnea and Leg pa in . Patient Status:Routine. Study Location:Portable. Technical Quality:Adequate visualization . Risk Factors History of Disease + + + + !Diagnosis!Date !Comments ! + + + + !History/Risk Factors:!!CKD, HLD, HTN, CAD, IABP, Morbid Obesity ! + + + + !History/Risk Factors:!03/22/2019!S/P heart cath ! + + + + !Other! !S/P Heart Cath ! + + + + Procedure Note Interface, External Ris In - 05/29/2019 8:20 AM CDT PV LAB - Lower Extremities DVT Study Demographics Patient Name SUZAN ARECHIGA ate of Study 05/28/2019 DARCIOBDEO A ge 78 Visit Number [id number] G tomas Female Accession Number [id number] D ate of 1940 Referring Peyton Spencer thompson Number [id number] Physician Broker Assistant Sly [place] T I nterpreting Suhail Stroud MD Procedure Type of Study: Veins: Lower Extremities DVT Study, JOSE F OUS DOPPLER LEG, BILATERAL. Indications for Study:Dyspnea and Leg pa in . Patient Status:Routine. Study Location:Portable. Technical Quality:Adequate visualization . Risk Factors History of Disease + + +------ + !Diagnosis !Date !Commen ts ! + + +------ + !History/Risk Factors:! !CKD, H LD, HTN, CAD, IABP, Morbid Obesity ! + + +------ + !History/Risk Factors:!03/22/2019!S/P he art cath ! + + +------ + !Other ! !S/P He art Cath ! + + +------ + Impressions Right Impression 1. There is no deep venous obstruction i n the profunda femoral, femoral, popliteal, posterior tibial or peroneal veins. 2. The common femoral vein was not visua lized due to a bandage. 3. The great saphenous vein was not visu alized due to a bandage. Left Impression 1. There is no deep venous obstruction i n the common femoral, profunda femoral, femoral, popliteal, posterior t ibial or peroneal veins. 2. There is no superficial venous obstru ction in the great saphenous vein. Conclusions Summary Venous duplex imaging and compression o f the bilateral lower extremities were performed. The veins were adequate ly visualized except as stated above. The bilateral venous systems wer e patent and compressible with no evidence of thrombus where visualized. The venous Doppler waveforms were phasic with respiration . Signature Velocities are measured in cm/s ; Diamet ers are measured in cm Performing Organization Address [facility] Phone Number [facility] HEART[facility] MKCKESSON CPACS Sodium, random urine (05/28/2019 12:35 PM CDT)Only the most recent of3 results within the time period is included. Sodium Urine 35 meq/L [facility] Specimen Urine Narrative Performed At Reference Range: No Normals [facility] Java Sql Developer ID - BS Performing Organization Address [facility]/[employer] Phone Number [address] [phone] CENTER Protein, random urine (05/28/2019 12:35 PM CDT)Only the most recent of4 results within the time period is included. Protein, Urine 10 0 - 14 mg/dL [facility] Specimen Urine Narrative Performed At Java Sql Developer ID - BS [facility] Performing Organization Address [facility] Center[facility] Phone Number [address] [place] [address] CENTER Creatinine, random urine (05/28/2019 12:35 PM CDT)Only the most recent of4 resultswithin the time period is included. Creatinine, Ur 65.1 mg/dL [facility] Specimen Urine Narrative Performed At Reference Range: No Normals [facility] Java Sql Developer ID - BS Performing Organization Address [facility] Centercode Phone Number [address] [address] CENTER aPTT (05/28/2019 8:11 AM CDT)Only the most recent of39 resultswithin the time period is included. PTT 67.2 (H) 22.5 - 36.0 seconds [facility] Specimen Blood Performing Organization Address [facility] Phone Number [address] [address] CENTER Troponin I (05/28/2019 4:20 AM CDT)Only the most recent of20 resultswithin the time period is included. Troponin I 1.06 (HH) 0.00 - 0.03 ng/mL [facility] Specimen Blood Narrative Performed At Troponin I (TnI) levels must be interpreted [facility] in the context of the presenting symptoms and the clinical findings. Elevated TnI levels indicate myocardial damage, but are not specific for ischemic heart disease. Elevated TnI levels are seen in patients with other cardiac conditions (including myocarditis and congestive heart failure), and slight TnI elevations occur in patients with other conditions, including sepsis, renal failure, acidosis, acute neurological disease, and persistent tachyarrhythmia. Java Sql Developer ID - BS Performing Organization Address [facility] Centercode Phone Number [address] [address] CENTER PT/aPTT (05/27/2019 11:41 PM CDT)Only the most recent of7 resultswithin the time period is included. Protime 13.3 11.9 - 14.2 seconds [facility] INR 1.0 <=5.9 [facility] PTT 25.2 22.5 - 36.0 seconds [facility] Specimen Blood Narrative Performed At Effective 07/18/2018: PT Reference Range [facility] Change New: 11.9-14.2Previous: 11.7-14.7 RECOMMENDED COUMADIN/WARFARIN INR THERAPY RANGES STANDARD DOSE: 2.0-3.0Includes: PROPHYLAXIS for venous thrombosis, systemic embolization; TREATMENT for venous thrombosis and/or pulmonary embolus. HIGH RISK: Target INR is 2.5-3.5 for patients wiht mechanical heart valves. Performing Organization Address City/State/Zipcode Phone Number [address] [phone] CENTER Platelet count (05/27/2019 11:22 PM CDT)Only the most recent of2 resultswithin the time period is included. Platelets 209 150 - 450 K/CU MM [facility] Specimen Blood Narrative Performed At Java Sql Developer ID - [id number] [facility] Performing Organization Address City/State/Zipcode Phone Number [address] [phone] CENTER ECG 12 lead (05/27/2019 11:14 PM CDT)Only the most recent of18 resultswithin the time period is included. Specimen Narrative Performed At Ventricular Rate 91 BPM GE MUSE Atrial Rate 91 BPM P-R Interval 184 ms QRS Duration 112 ms Q-T Interval 410 ms QTC Calculation(Bazett) 504 ms P [place] 80 degrees R [place] 53 degrees T [place] 215 degrees Normal sinus rhythm Incomplete left bundle branch block ST depression inferior and anterolateral leads + ST el evation in aVR consider ischemia Prolonged QT Abnormal ECG When compared with ECG of22:06 ST now depressed in Lateral leads ST now elevated in aVR Confirmed by MD JORGE, MATHEUS ([id number]) on 05/28/2019 6 :33:47 AM Procedure Note Interface, External Ris In - 05/28/2019 6:33 AM CDT Ventricular Rate 91 BPM Atrial Rate 91 BPM P-R Interval 184 ms QRS Duration 112 ms Q-T Interval 410 ms QTC Calculation(Bazett) 504 ms P [place] 80 degrees R [place] 53 degrees T [place] 215 degrees Normal sinus rhythm Incomplete left bundle branch block ST depression inferior and anterolateral leads + ST elevation in aVR consider ischemia Prolonged QT Abnormal ECG When compared with ECG of 22:06 ST now depressed in Lateral leads ST now elevated in aVR Confirmed by MD JORGE, MATHEUS ([id number]) on 05/28/2019 6:33:47 AM Performing Organization Address [facility] Phone Number [employer] MUSE XR chest 1 view portable / bedside (05/27/2019 11:05 AM CDT)Only the most recent of24 resultswithin the time period is included. Specimen Narrative Performed At FINAL REPORT [employer] RAD, CHEST, 1 VIEW, NON DEPT INDICATION: CHEST PAIN, dyspnea COMPARISON: March 20, 2019 FINDINGS: Portable frontal view of the c hest. IMPRESSION: Support Lines: None Lungs and pleura: Left lung base linear opacities suggestive of scarring are stable. Lungs are otherwise clear. No pneumothorax. Heart and mediastinum: Stable contours. Additional findings: Bilateral humeral d eformities are stable. Costochondral calcifications present. Signed: Ochao Fry MD Report Verified Date/Time:05/27/2019 23:36:18 Procedure Note Interface, External Ris In - 05/27/2019 11:38 PM CDT FINAL REPORT RAD, CHEST, 1 VIEW, NON DEPT INDICATION: CHEST PAIN, dyspnea COMPARISON: March 20, 2019 FINDINGS: Portable frontal view of the c hest. IMPRESSION: Support Lines: None Lungs and pleura: Left lung base linear opacities suggestive of scarring are stable. Lungs are otherwise clear. No pneumothorax. Heart and mediastinum: Stable contours. Additional findings: Bilateral humeral d eformities are stable. Costochondral calcifications present. Signed: Ochoa Fry MD Report Verified Date/Time: 05/27/2019 2 3:36:[address] [facility] Centercode Phone Number [employer] CARDIAC CATH REPORT - SCAN (03/26/2019 8:41 AM ZOOKEEPER) Narrative Performed At This result has an attachment that is no t available. CARDIAC CATH REPORT - SCAN (03/26/2019 8:41 AM ZOOKEEPER) Narrative Performed At This result has an attachment that is no t available. Comprehensive metabolic panel (03/23/2019 5:27 AM ZOOKEEPER)Only the most recent of16 resultswithin the time period is included. Protein, Total 6.3Comment: Specimen 6.0 - 8.3 gm/dL [facility] slightly hemolyzed [facility] Albumin 3.4 (L)Comment: Specimen 3.5 - 5.0 g/dL [facility] slightly hemolyzed [facility] Alkaline Phosphatase 52 40 - 150 U/L [facility] Total Bilirubin 0.4Comment: Specimen 0.2 - 1.2 mg/dL [facility] slightly hemolyzed [facility] Sodium 140 136 - 145 meq/L [facility] Potassium 4.1Comment: Specimen 3.5 - 5.1 meq/L [facility] slightly hemolyzed [facility] Chloride 102 98 - 107 meq/L [facility] CO2 25 22 - 29 meq/L [facility] BUN 49 (H) 7 - 21 mg/dL [facility] Creatinine 2.86 (H)Comment: 0.57 - 1.25 mg/dL [facility] Specimen slightly [facility] hemolyzed Glucose 164 (H) 70 - 105 mg/dL [facility] Calcium 9.0 8.4 - 10.2 mg/dL [facility] AST 27Comment: Specimen 5 - 34 U/L [facility] slightly hemolyzed [facility] ALT 14Comment: Specimen 6 - 55 U/L [facility] slightly hemolyzed [facility] EGFR 16Comment: ESTIMATED GFR mL/min/1.73 sq m [facility] IS NOT ACCURATE [facility] CREATININE CLEARANCE IN PREDICTING GLOMERULAR FILTRATION RATE. ESTIMATED GFR IS NOT APPLICABLE FOR DIALYSIS PATIENTS. Specimen Blood Narrative Performed At Java Sql Developer ID - PIAYA L [facility] Performing Organization Address City/State/Zipcode Phone Number [facility] [address] [place] [address] CENTER ECHOCARDIOGRAM REPORT - SCAN (03/22/2019 9:20 PM ZOOKEEPER) Narrative Performed At This result has an attachment that is no t available. Carotid doppler bilateral (03/22/2019 7:42 PM ZOOKEEPER)Only the most recent of2 resultswithin the time period is included. [facility] ECHO HEAR TLAB MK[facility]ON CPACS Specimen Impressions Performed At Right Impression [facility] ECHO HEARTLAB [facility]ON CPACS 1. There is <50% diameter reduction (approximately 45.7% by 2-D measurement) in the internal carotid artery with a peak velocity of 81/18 cm/sec and heterogeneous shadowing plaque. 2. There is >50% stenosis in the external carotid artery with a velocity of 180/28cm/sec. 3. There is non-occluding plaque in the common carotid artery. 4. The vertebral artery is not visualize d. 5. The subclavian artery is within normal limits where visualized. Left Impression 1. There is <50% diameter reduction (approximately 25.2% by 2-D measurement) in the internal carotid artery with a peak velocity of 64/16 cm/sec and heterogeneous shadowing plaque. 2. There is non-occluding plaque in the external carotid artery. 3. There is non-occluding plaque in the common carotid artery. 4. The vertebral artery is not visualize d. 5. The subclavian artery is within normal limits where visualized. Conclusions Summary Carotid duplex scanning and color flow imaging were performed bilaterally. The arteries were adequately visualized. The bilateral internal carotid arteries had <50% hemodynamically insignificant stenosis (approximately 45.7% by 2-D measurement on the right, approximately 25.2% by 2-D measurement on the left) with heterogeneous plaque. The right external carotid artery had > 50% stenosis. The vertebral artery flow was not visualized bilaterally. The subclavian arteries were patent with normal flow bilaterally where visualized. Signature Velocities are measured in cm/s ; Diameters are measured in cm Carotid Right Measurements + +----+----+-----+ +---- + + !Location !PSV !EDV !Angle!%Stenosis 2D!%Stenosis Doppler!Tortuosity ! + +----+----+-----+ +---- + + !Prox CCA !64.6!12.4!60 !! ! ! + +----+----+-----+ +---- + + !Dist CCA !65.9!16.8!60 !! ! ! + +----+----+-----+ +---- + + !Prox ICA !81.3!18.2!60 !45.7% !<50% ! ! + +----+----+-----+ +---- + + !Dist ICA !110 !24.5!60 !! ! ! + +----+----+-----+ +---- + + !Prox ECA !180 !28.2!60 !! ! ! + +----+----+-----+ +---- + + !Prox Subclavian!117 !!60 !! ! ! + +----+----+-----+ +---- + + - Additional Measurements:ICAPSV/CCAPSV 1.67.ICAEDV/CCAEDV 1.98. Carotid Left Measurements + +----+----+-----+ +---- + + !Location !PSV !EDV !Angle!%Stenosis 2D!%Stenosis Doppler!Tortuosity ! + +----+----+-----+ +---- + + !Prox CCA !60.9!17.5!60 !! ! ! + +----+----+-----+ +---- + + !Dist CCA !54.6!15.4!60 !! ! ! + +----+----+-----+ +---- + + !Prox ICA !64.5!16.8!60 !25.2% !<50% ! ! + +----+----+-----+ +---- + + !Dist ICA !81.3!25.9!60 !! ! ! + +----+----+-----+ +---- + + !Prox ECA !90.4!14.7!60 !! ! ! + +----+----+-----+ +---- + + !Prox Subclavian!109 !!60 !! ! ! + +----+----+-----+ +---- + + - Additional Measurements:ICAPSV/CCAPSV 1.49.ICAEDV/CCAEDV 1.48. Narrative Performed At LAB - Carotid Duplex Study [facility] Demographics Patient Name SUZAN ARECHIGA Date of Study03/22/2019 CAPRICE BDEO [id number] Visit Number [id number] Gender Female Accession Number [id number] Date of Birth1940 [facility] Room Number C633 Physician SonographApolinar De RVTInterpreting Physician MaximusMD Procedure Type of Study: Cerebral: Carotid, CAROTID DOPPLER, TANI ATERAL. Indications for Study:TIA . Patient Status:Routine. Study Location:Portable. Technical Quality:Adequate visualization . Risk Factors History of Disease + + + + !Diagnosis!Date !Comments ! + + + + !History/Risk Factors:!!CKD, HLD, HTN, CAD, IABP, Morbid Obesity ! + + + + !History/Risk Factors:!03/22/2019!S/P heart cath ! + + + + Procedure Note Interface, External Ris In - 03/23/2019 9:28 AM ZOOKEEPER PV LAB - Carotid Duplex Study Demographics Patient Name SUZAN ARECHIGA ate of Study 03/22/2019 ESCOBDEO A ge 78 Visit Number [id number] G tomas Female Accession Number [id number] D ate of 1940 Referring Sharon thompson Number [id number] Physician Broker Assistant Isabela De T I nterpreting Suhail Stroud MD Procedure Type of Study: Cerebral: Carotid, CAROTID DOPPLER, TANI ATERAL. Indications for Study:TIA . Patient Status:Routine. Study Location:Portable. Technical Quality:Adequate visualization . Risk Factors History of Disease + + +------ + !Diagnosis !Date !Commen ts ! + + +------ + !History/Risk Factors:! !CKD, H LD, HTN, CAD, IABP, Morbid Obesity ! + + +------ + !History/Risk Factors:!03/22/2019!S/P he art cath ! + + +------ + Impressions Right Impression 1. There is <50% diameter reduction (rey roximately 45.7% by 2-D measurement) in the internal carotid artery with a pe ak velocity of 81/18 cm/sec and heterogeneous shadowing plaque. 2. There is >50% stenosis in the externa l carotid artery with a velocity of 180/28cm/sec. 3. There is non-occluding plaque in the common carotid artery. 4. The vertebral artery is not visualize d. 5. The subclavian artery is within mateo l limits where visualized. Left Impression 1. There is <50% diameter reduction (rey roximately 25.2% by 2-D measurement) in the internal carotid artery with a pe ak velocity of 64/16 cm/sec and heterogeneous shadowing plaque. 2. There is non-occluding plaque in the external carotid artery. 3. There is non-occluding plaque in the common carotid artery. 4. The vertebral artery is not visualize d. 5. The subclavian artery is within mateo l limits where visualized. Conclusions Summary Carotid duplex scanning and color flow imaging were performed bilaterally. The arteries were adequately visualized . The bilateral internal carotid arteries had <50% hemodynamically insig nificant stenosis (approximately 45.7% by 2-D measurement on the right, approximately 25.2% by 2-D measurement on the left) with heterogen eous plaque. The right external carotid artery had > 50% stenosis. The vertebral artery flow was not visualized bilaterally. The subclavian arteries were patent with normal flow bilaterally where visualized. Signature Velocities are measured in cm/s ; Diamet ers are measured in cm Carotid Right Measurements + +----+----+-----+------- -----+ + + !Location !PSV !EDV !Angle!%Stenos is 2D!%Stenosis Doppler!Tortuosity ! + +----+----+-----+------- -----+ + + !Prox CCA !64.6!12.4!60 ! ! ! ! + +----+----+-----+------- -----+ + + !Dist CCA !65.9!16.8!60 ! ! ! ! + +----+----+-----+------- -----+ + + !Prox ICA !81.3!18.2!60 !45.7% !<50% ! ! + +----+----+-----+------- -----+ + + !Dist ICA !110 !24.5!60 ! ! ! ! + +----+----+-----+------- -----+ + + !Prox ECA !180 !28.2!60 ! ! ! ! + +----+----+-----+------- -----+ + + !Prox Subclavian!117 ! !60 ! ! ! ! + +----+----+-----+------- -----+ + + - Additional Measurements:ICAPSV/CCAPS V 1.67.ICAEDV/CCAEDV 1.98. Carotid Left Measurements + +----+----+-----+------- -----+ + + !Location !PSV !EDV !Angle!%Stenos is 2D!%Stenosis Doppler!Tortuosity ! + +----+----+-----+------- -----+ + + !Prox CCA !60.9!17.5!60 ! ! ! ! + +----+----+-----+------- -----+ + + !Dist CCA !54.6!15.4!60 ! ! ! ! + +----+----+-----+------- -----+ + + !Prox ICA !64.5!16.8!60 !25.2% !<50% ! ! + +----+----+-----+------- -----+ + + !Dist ICA !81.3!25.9!60 ! ! ! ! + +----+----+-----+------- -----+ + + !Prox ECA !90.4!14.7!60 ! ! ! ! + +----+----+-----+------- -----+ + + !Prox Subclavian!109 ! !60 ! ! ! ! + +----+----+-----+------- -----+ + + - Additional Measurements:ICAPSV/CCAPS V 1.49.ICAEDV/CCAEDV 1.48. Performing Organization Address City/State/Zipcode Phone Number [facility] [employer] [facility] 2D Echo W/Doppler(CW/PW/Color) (03/22/2019 2:04 PM ZOOKEEPER) Ejection Fraction [facility] ECHO HEAR TLAB [employer] aka [employer] [facility] Specimen Narrative Performed At Transthoracic Echocardiography Report (T TE) [facility] [employer] [facility] Health [employer] aka [employer] [facility] Demographics Patient Name SUZAN ARECHIGA Date of Study 03/22/2019 ESCOBDEO [id number] GenderFemale Visit Number [id number] [facility] [id number] Room Number [id number] Number Date of Birth1940 Referring Physician Peyton Reece Age78 year(s) Broker Assistant Daniel Acosta MD Physician Procedure Type of Study TTE procedure:2DECHO W DOPPLER(CW/PW/COLOR) (Routine) Indications:Acute Chest Pain/ Suspected CAD. Clinical History HGB 11.7 HCT 35.5 % CHF, CAD, IDDM, HTN, NSTEMI S/P IMPELLA AND PCI 08/01/18, CKD IV, HLD, AFLUTTER, ROLDAN, ANXIETY Contrast Medium: Definity. Amount - 4 ml Height: 61 inches Weight: 68.04 kg (150 lbs) BSA: 1.67 m^2 BMI: 28.34 kg/m^2 HR: 87 bpm BP: 142/60 mmHg Summary Technically difficult study. 1. LV endocardium is adequately visualized with IV ultrasound enhancing agent. The left ventricle is chamber size (by vol index) is normal. Mild concentric LV hypertrophy. All of the LV segments are mildly hypokinetic . LVEF by Beauchamp's method of disk assessment is mildly reduced (40-44%). LV diastolic function is indeterminate. 2. Right ventricle not well seen. Systolic function appears grossly normal, S' > 10 cm/s. 3. No significant valvular abnormality 4. Unable to estimate peak systolic PA pressure; inadequate TR velocity signal. Previous Study Compared with prior study from 01/28/19, there is no significant change. Signature Findings Left Ventricle Technically difficult study. LV endocardium is adequately visualized wit h IV ul trasound enhancing agent. Th e left ventricle is chamber size (by vol index) is normal. Mi ld concentric LV hypertrophy. Al l of the LV segments are mildly hypokine tic . LV EF by Beauchamp's method of disk assessmen t is mi ldly reduced (40-44%) . LV diastolic function is indeterminate. Left AtriumLA size is mildly enlarged (35-41 ml/m2) . Right VentricleRight ventricle not well seen. Sy stolic function appears grossly normal, S' > 10 cm /s. Right Atrium RA size is normal. Aortic Valve The aortic valve is not well visualized. Th ere is no aortic stenosis. Th ere is no aortic regurgitation. Mitral Valve Mitral leaflet thickening and calcification. Tr matthias mitral regurgitation. Tricuspid ValveThe tricuspid valve is not well visualized. A trace of tricuspid regurgitation. Un able to estimate peak systolic PA pressu re; in adequate TR velocity signal. Pulmonic Valve PV is not well visualized. AortaAortic root size (SInus of Valsalva diameter) i s in determinate (not well seen) . PericardiumNo pericardial effusion is visualized. IVC/SVC/PA/PV/PleuralThe estimated RA pressure by IVC dynamics 0-5mmHg . Chambers/Structures Left Atrium LA Volume: 66.09 ml LA Area: 19.48 cm^2 LA Vol. Index: 40 ml/m^2 Left Ventricle LVIDd: 4.16 cm LVEDV:93.52 ml LV Septum Diastolic: 1.12 cm LV PW Diastolic: 1.2 cm LVEDV Beauchamp's:84.97 mlLV Length: 7.34 cm LVESV Beauchamp's:49.85 ml LVEF Beauchamp's: 41.3 %L VEDVI: 51 ml/m^2 LVESVI: 30 ml/m^2 LVOT Diameter: 2.18 cm Doppler/Quantitative Measurements Aortic Valve Peak Velocity: 1.19 m/sMean Velocity: 0.87 m/s Peak Gradient: 5.63 mmHg Mean Gradient: 3.28 mmHg AV Area (continuity): 3.29 cm^2 AV VTI: 23.92 cm AV DVI: 0.88 LVOT Peak Velocity: 0.9 m/sPeak Gradient: 3.27 mmHg Mean Velocity: 0.61 m/s Mean Gradient: 1.72 mmHg LVOT Diameter: 2.18 cmLVOT VTI: 21.11 cm LVOT Area: 3.73 cm^2LVOT SV:78.75 ml LVOT CO: 6.85 l/min LVOT CI: 4.1 l/min/m^2 Procedure Note Interface, External Ris In - 03/22/2019 5:25 PM ZOOKEEPER Transthoracic Echocardiography Report (TTE) Demographics Patient Name SUZAN ARECHIGA ate of Study 03/22/2019 DUKEDEO G tomas Female Visit Number [id number] R matthias R oom Number [id number] Number Date of 1940 R eferring Physician Peyton Reece Age 78 year(s) S onographer Daniel Khan I nterpreting Raul Acosta MD P hysirebeca Procedure Type of Study TTE procedure:2DECHO W DOPPLE R(CW/PW/COLOR) (Routine) Indications:Acute Chest Pain/ Suspected CAD. Clinical History HGB 11.7 HCT 35.5 % CHF, CAD, IDDM, HTN, NSTEMI S/P IMPELLA AND PCI 08/01/18, CKD IV, HLD, AFLUTTER, ROLDAN, ANXIETY Contrast Medium: Definity. Amount - 4 ml Height: 61 inches Weight: 68.04 kg (150 lbs) BSA: 1.67 m^2 BMI: 28.34 kg/m^2 HR: 87 bpm BP: 142/60 mmHg Summary Technically difficult study. 1. LV endocardium is adequately visuali zed with IV ultrasound enhancing agent. The left ventricle is chamber si ze (by vol index) is normal. Mild concentric LV hypertrophy. All of the L V segments are mildly hypokinetic . LVEF by Beauchamp's method of disk assess ment is mildly reduced (40-44%). LV diastolic function is indeterminate. 2. Right ventricle not well seen. Systo lic function appears grossly normal, S' > 10 cm/s. 3. No significant valvular abnormality 4. Unable to estimate peak systolic PA pressure; inadequate TR velocity signal. Previous Study Compared with prior study from 01/28/19, there is no significant change. Signature Findings Left Ventricle Technically diff icult study. LV endocardium i s adequately visualized with IV ultrasound enhan cing agent. The left ventric le is chamber size (by vol index) is normal. Mild concentric LV hypertrophy. All of the LV se gments are mildly hypokinetic . LVEF by Beauchamp' s method of disk assessment is mildly reduced ( 40-44%) . LV diastolic fun ction is indeterminate. Left Atrium LA size is mildl y enlarged (35-41 ml/m2) . Right Ventricle Right ventricle not well seen. Systolic functio n appears grossly normal, S' > 10 cm/s. Right Atrium RA size is mateo l. Aortic Valve The aortic valve is not well visualized. There is no aort ic stenosis. There is no aort ic regurgitation. Mitral Valve Mitral leaflet t hickening and calcification. Trace mitral reg urgitation. Tricuspid Valve The tricuspid va lve is not well visualized. A trace of tricu spid regurgitation. Unable to estima te peak systolic PA pressure; inadequate TR ve locity signal. Pulmonic Valve PV is not well v isualized. Aorta Aortic root size (SInus of Valsalva diameter) is indeterminate (n ot well seen) . Pericardium No pericardial e ffusion is visualized. IVC/SVC/PA/PV/Pleural The estimated RA pressure by IVC dynamics 0-5mmHg . Chambers/Structures Left Atrium LA Volume: 66.09 ml LA Area: 19.48 cm^2 LA Vol. Index: 40 ml/m^2 Left Ventricle LVIDd: 4.16 cm LVEDV:93.52 ml LV Septum Diastolic: 1.12 cm LV PW Diastolic: 1.2 cm LVEDV Beauchamp's:84.97 ml LV Length: 7.34 cm LVESV Beauchamp's:49.85 ml LVEF Beauchamp's: 41.3 % LVEDVI: 51 ml/m^2 LVESVI: 30 ml/m^2 LVOT Diameter: 2.18 cm Doppler/Quantitative Measurements Aortic Valve Peak Velocity: 1.19 m/s Mean Velocity: 0.87 m/s Peak Gradient: 5.63 mmHg Mean Gradient: 3.28 mmHg AV Area (continuity): 3.29 cm^2 AV VTI: 23.92 cm AV DVI: 0.88 LVOT Peak Velocity: 0.9 m/s Pea k Gradient: 3.27 mmHg Mean Velocity: 0.61 m/s Shweta n Gradient: 1.72 mmHg LVOT Diameter: 2.18 cm LVO T VTI: 21.11 cm LVOT Area: 3.73 cm^2 LVO T SV:78.75 ml LVOT CO: 6.85 l/min LVO T CI: 4.1 l/min/m^[address] [facility] Phone Number [facility] MKCKESSON CPACS Lipid panel (03/22/2019 2:06 AM ZOOKEEPER)Only the most recent of2 resultswithin the time period is included. Triglycerides 102 mg/dL [facility] Cholesterol 161 mg/dL [facility] HDL 40 mg/dL [facility] LDL Calculated 101 mg/dL [facility] Specimen Blood Narrative Performed At Triglyceride Reference Range: [facility] Low Risk <150 [id number] High Risk 200-499 Very High Risk>=500 Cholesterol Reference Range: Low Risk <200 [id number] High Risk>240 HDL Cholesterol Reference Range: Low Risk >=60 High Risk <40 LDL Cholesterol Reference Range: Optimal<100 Near [id number] Very High >=190 Java Sql Developer ID - [email or web address] Performing Organization Address [facility] Phone Number [facility] [address] [place] [address] CENTER US abdomen complete (03/22/2019 12:10 AM ZOOKEEPER) Specimen Narrative Performed At FINAL REPORT [facility] INDICATION: abd pain COMPARISON: Renal ultrasound dated 2018. TECHNIQUE:Real-time transabdominal g ray scale and color Doppler ultrasound of the abdomen. FINDINGS: Liver: Size: 11.3cm. Echogenicity: Normal. Masses/lesions: None. Surface Nodularity: None. Intrahepatic bile ducts: Normal . Common bile duct: 0.6 cm. MPV: 0.9cm. Gallbladder: Surgically absent. Pancreas: Head and uncinate process: Unre markable. Body and tail: Not well-seen. Spleen: Size: 8.3cm. Echogenicity: Unremarkable. Right kidney: Size: 8.8 x 4.2 x 4.4 cm. Parenchyma: Normal echogenicity . No cysts. Multiple echogenic foci in the interpole measuring up to 0. 4 cm may represent nephrolithiasis. Hydronephrosis: None. Left kidney: Size: 8.5 x 4.1 x 4.1 cm. Parenchyma: Normal echogenicity . Hypoechoic 1.2 cm upper pole lesion may represent a simple cyst howev er incompletely characterized on this examination. No stones. Hydronephrosis: None. Ascites: None. Regional Vasculature: The visible abdomi nal aorta, IVC and hepatic veins are patent. The aorta measures 1.6 cm proximally, 1.6 cm in the midportion 1.1 cm distally. Additional findings: None. IMPRESSION: No acute sonographic abnormality in the abdomen. Postsurgical changes of a cholecystectom y. Right nonobstructing nephrolithiasis. Incompletely characterized left upper po le 1.2 cm hypoechoic lesion. Recommend further evaluation with renal protocol cross-sectional imaging on a nonemergent basis. Signed: Socorro Méndez MD Report Verified Date/Time:03/22/2019 01:50:03 Procedure Note Interface, External Ris In - 03/22/2019 1:53 AM ZOOKEEPER FINAL REPORT INDICATION: abd pain COMPARISON: Renal ultrasound dated 2018. TECHNIQUE: Real-time transabdominal gra y scale and color Doppler ultrasound of the abdomen. FINDINGS: Liver: Size: 11.3cm. Echogenicity: Normal. Masses/lesions: None. Surface Nodularity: None. Intrahepatic bile ducts: Normal. Common bile duct: 0.6 cm. MPV: 0.9cm. Gallbladder: Surgically absent. Pancreas: Head and uncinate process: Unremark able. Body and tail: Not well-seen. Spleen: Size: 8.3cm. Echogenicity: Unremarkable. Right kidney: Size: 8.8 x 4.2 x 4.4 cm. Parenchyma: Normal echogenicity. No cysts. Multiple echogenic foci in the interpole measuring up to 0. 4 cm may represent nephrolithiasis. Hydronephrosis: None. Left kidney: Size: 8.5 x 4.1 x 4.1 cm. Parenchyma: Normal echogenicity. Hy poechoic 1.2 cm upper pole lesion may represent a simple cyst howev er incompletely characterized on this examination. No stones. Hydronephrosis: None. Ascites: None. Regional Vasculature: The visible abdomi nal aorta, IVC and hepatic veins are patent. The aorta measures 1.6 cm proximally, 1.6 cm in the midportion 1.1 cm distally. Additional findings: None. IMPRESSION: No acute sonographic abnormality in the abdomen. Postsurgical changes of a cholecystectom y. Right nonobstructing nephrolithiasis. Incompletely characterized left upper po le 1.2 cm hypoechoic lesion. Recommend further evaluation with renal protocol cross-sectional imaging on a nonemergent basis. Signed: Socorro Méndez MD Report Verified Date/Time: 03/22/2019 0 1:50:03 Performing Organization Address City/State/Zipcode Phone Number [facility] CT brain without IV contrast (03/21/2019 4:58 PM ZOOKEEPER) Specimen Narrative Performed At FINAL REPORT [facility] CT, BRAIN, WITHOUT CONTRAST INDICATION: Left sided weakness, more so LUE than LLE - last felt normal last night Left sided weakness, more so LUE than LL E - last felt normal last night TECHNIQUE: Noncontrast axial imaging was obtained from the vertex to the skull base. Axial images were recons tructed using a bone algorithm. DOSE REDUCTION: Dose modulation, iterati ve reconstruction, and/or weight-based adjustment of the mA/kV was utilized to reduce the radiation dose to as low as reasonably a chievable. COMPARISON: None. FINDINGS: Intracranial: Streak artifact related to cranial-cervical fusion hardware limits evaluation of the production specialist ior fossa. No intracranial hemorrhage or abnormal extra-axial colle ction. No evidence of acute territorial infarct. Age-indeterminate b ut chronic appearing lacunar infarct in the left lentiform nucleus. N o mass effect. No hydrocephalus. Coarse extra-axial left f rontal calcification. Osseous structures: No fracture. Postsur gical changes of suboccipital decompression and craniocervical fusion. Paranasal sinuses and mastoid air cells: No evidence of sinusitis. Mastoids are clear. Orbital contents: Globes are intact. IMPRESSION: Streak artifact related to craniocervica l fusion limits evaluation of the posterior fossa. Otherwise, no CT ev idence of acute intracranial hemorrhage or territorial infarct. If there is persistent clinical concern for intracranial pathology, MR examination is recommended for furthe r characterization. Signed: Kavitha Box MD Report Verified Date/Time:03/21/2019 17:36:00 Procedure Note Interface, External Ris In - 03/21/2019 5:38 PM ZOOKEEPER FINAL REPORT CT, BRAIN, WITHOUT CONTRAST INDICATION: Left sided weakness, more so LUE than LLE - last felt normal last night Left sided weakness, more so LUE than LL E - last felt normal last night TECHNIQUE: Noncontrast axial imaging was obtained from the vertex to the skull base. Axial images were recons tructed using a bone algorithm. DOSE REDUCTION: Dose modulation, iterati ve reconstruction, and/or weight-based adjustment of the mA/kV was utilized to reduce the radiation dose to as low as reasonably a chievable. COMPARISON: None. FINDINGS: Intracranial: Streak artifact related to cranial-cervical fusion hardware limits evaluation of the production specialist ior fossa. No intracranial hemorrhage or abnormal extra-axial colle ction. No evidence of acute territorial infarct. Age-indeterminate b ut chronic appearing lacunar infarct in the left lentiform nucleus. N o mass effect. No hydrocephalus. Coarse extra-axial left f rontal calcification. Osseous structures: No fracture. Postsur gical changes of suboccipital decompression and craniocervical fusion. Paranasal sinuses and mastoid air cells: No evidence of sinusitis. Mastoids are clear. Orbital contents: Globes are intact. IMPRESSION: Streak artifact related to craniocervica l fusion limits evaluation of the posterior fossa. Otherwise, no CT ev idence of acute intracranial hemorrhage or territorial infarct. If there is persistent clinical concern for intracranial pathology, MR examination is recommended for furthe r characterization. Signed: Kavitha Box MD Report Verified Date/Time: 03/21/2019 1 7:36:00 Performing Organization Address City/State/Zipcode Phone Number GE RIS XR shoulder complete 2 views min left (03/21/2019 2:25 PM ZOOKEEPER) Specimen Narrative Performed At FINAL REPORT GE RIS RAD, SHOULDER, COMPLETE (MIN 2 VIEWS), LEFT COMPARISON: None INDICATION:shoulder pain with ROM FINDINGS:AP views in internal and ex ternal rotation and an axillary "Y" view of the left shoulder. Osseous structures: No fracture. Joint spaces: Intact without malalignmen t. Moderate degenerative changes. Soft tissues: Unremarkable IMPRESSION: No acute abnormality of the left shoulde r. Signed: JR Hernandez Robert MD Report Verified Date/Time:03/21/2019 14:38:21 Reading Location: [facility] Reading Room Procedure Note Interface, External Ris In - 03/21/2019 2:40 PM ZOOKEEPER FINAL REPORT RAD, SHOULDER, COMPLETE (MIN 2 VIEWS), LEFT COMPARISON: None INDICATION: shoulder pain with ROM FINDINGS: AP views in internal and exte rnal rotation and an axillary "Y" view of the left shoulder. Osseous structures: No fracture. Joint spaces: Intact without malalignmen t. Moderate degenerative changes. Soft tissues: Unremarkable IMPRESSION: No acute abnormality of the left shoulde r. Signed: JR Hernandez Robert MD Report Verified Date/Time: 03/21/2019 1 4:38:21 Reading Location: [employer] Reading Room Performing Organization Address City/State/Zipcode Phone Number [facility] REPORT OF PROCEDURE - ENDOSCOPY URL (03/21/2019 12:27 PM ZOOKEEPER) Narrative Performed At This result has an attachment that is no t available. Hemoglobin A1c (03/20/2019 12:43 AM ZOOKEEPER)Only the most recent of3 resultswithin the time period is included. Hemoglobin A1C 8.5 (H) 4.3 - 6.1 % [facility] Specimen Blood Performing Organization Address City/State/Zipcode Phone Number [address] [phone] [facility] ECHOCARDIOGRAM REPORT - SCAN (01/28/2019 9:21 PM ZOOKEEPER) Narrative Performed At This result has an attachment that is no t available. Clostridium difficile [facility] Toxin (01/28/2019 6:41 PM ZOOKEEPER)Only the most recent of 3 resultswithin the time period is included. C. Difficle Toxin Negative Negative [facility] C. Difficile [facility] Antigen Positive (A)Comment: C. Negative [facility] difficile present but toxin [facility] not detected. Indicates colonization with non-toxigenic strain or level of toxin below detectable levels. No need for enteric isolation. Treatment is rarely needed (only when strong clinical suspicion for Clostridium difficile infection) Specimen Stool Narrative Performed At Testing performed by [employer] [facility] Assay.For [facility], published sensitivity of the assay is 98.7% compared to cytotoxicity testing.For Toxin AB, published sensitivity is 87.8% and specificity 99.4% compared to cytotoxicity testing. Verification of kit performance was done by the [facility] Microbiology Lab prior to clinical use. Performing Organization Address City/State/Zipcode Phone Number [address] [address] [facility] Occult blood, stool (01/28/2019 6:40 PM ZOOKEEPER)Only the most recent of2 results within the time period is included. Occult blood Negative Negative [facility] Specimen Stool Performing Organization Address City/State/Zipcode Phone Number [address] [address] [facility] Transthoracic 2D echo w/ doppler (cw/pw/color) (01/28/2019 11:25 AM ZOOKEEPER) Ejection Fraction [facility] Specimen Narrative Performed At Transthoracic Echocardiography Report (T TE) [facility] Demographics Patient NameCARRILLOSUZAN Date of Study01/28/2019 ESCOBDEO Gender Female Visit [id number] Race Hispani c [id number] Number Date of 1940 Referring Physician Age 78 year(s) Hany Dozier [facility] Interpreting Physician XIMENA Cormier Procedure Type of Study TTE procedure:2DECHO W DOPPLER(CW/PW/COLOR) (Routine) Indications:Acute Chest Pain/ Suspected CAD. Clinical History CHF;CAD;DM;HTN;R&L CATH/PCI 06/08-08/08. Height: 61 inches Weight: 77.11 kg (170 lbs) BSA: 1.76 m^2 BMI: 32.12 kg/m^2 HR: 67 bpm BP: 126/51 mmHg Summary The left ventricle is chamber size (by vol index) is normal (female - LVED vol - 29-61ml/m2). Mild septal hypertrophy is present. All of the LV segments are mildly hypokinetic . LVEF by Beauchamp's method of disk assessment is mildly reduced (40-44%) . Unable to estimate peak systolic PA pressure; inadequate TR velocity signal. Previous Study In comparison with the prior exam on 12/21/2018 there are no significant changes. Signature Findings Left Ventricle The left ventricle is chamber size (by vol index) is normal (female - LVED vol - 29-61ml/m2). Mi ld septal hypertrophy is present. Al l of the LV segments are mildly hypokine tic . LV EF by Beauchamp's method of disk assessmen t is mi ldly reduced (40-44%) . Left AtriumLA size is mildly enlarged (35-41 ml/m2) . Right VentricleThe right ventricular chamber size and systolic fu nction are within normal limits. Right Atrium RA size is normal. Aortic Valve Mild AoV cusp thickening. Mitral Valve Mild MV leaflet thickening. Mi ld mitral annular calcification. Mi ld mitral regurgitation. Tricuspid ValveTV structure is normal. Un able to estimate peak systolic PA pressu re; in adequate TR velocity signal. Pulmonic Valve Normal PV structure appears normal by available vi ews. Mi ld pulmonary regurgitation. AortaAortic root size (SInus of Valsalva diameter) i s no rmal . PericardiumNo pericardial effusion is visualized. IVC/SVC/PA/PV/PleuralThe estimated RA pressure by IVC dynamics 0-5mmHg . Chambers/Structures Left Atrium LA Dimension: 3.84 cmLA Area: 21.39 cm^2 LA Volume: 64.91 ml LA Vol. Index: 37 ml/m^2 Left Ventricle LVIDd: 5.36 cm LVEDV:114.75 ml LVIDs: 3.26 cm LVESV:52.6 ml LV Septum Diastolic: 1.32 cmLVEF 2D Cube: 56.3 % LV PW Diastolic: 1.11 cm LVEDV Beauchamp's:84.31 mlLV FS: 39.2 % LVESV Beauchamp's:49.14 ml LVEF Beauchamp's: 41.7 %LVEDV I: 48 ml/m^2 LVESVI: 28 ml/m^2 LVOT Diameter: 2.07 cm LVEF: 54.2 % Aorta Ao Root S of Mary Ellen.: 2.9 cm Doppler/Quantitative Measurements Mitral Valve MV Peak E-Wave: 0.68 m/sMV Peak A-Wave: 0 m/s E/A Ratio: 52 6.62 Peak Gradient: 1.87 mmHg MV Main. Peak: Aortic Valve Peak Velocity: 1.4 m/s Mean Velocity: 0.98 m/s Peak Gradient: 7.85 mmHg Mean Gradient: 4.34 mmHg AV Area (continuity): 1.93 cm^2 AV VTI: 34.2 cm AV DVI: 0.57 LVOT Peak Velocity: 0.86 m/s Peak Gradient: 2.95 mmHg Mean Velocity: 0.56 m/s Mean Gradient: 1.48 mmHg LVOT Diameter: 2.07 cmLVOT VTI: 19.65 cm LVOT Area: 3.37 cm^2LVOT SV:66.1 ml LVOT CO: 4.43 l/min LVOT CI: 2.52 l/min/m^2 Procedure Note Interface, External Ris In - 01/28/2019 3:33 PM ZOOKEEPER Transthoracic Echocardiography Report (TTE) Demographics Patient Name SUZAN ARECHIGA Date of Study 01/28/2019 SARAI Gend er Female Visit Number [id number] Race Room Number [id number] Number Date of 1940 Refe martining Tramaine bradley Age 78 year(s) Sono grapher Melani Dozier RDCS Inte rpreting Tramaine Cormier MD Procedure Type of Study TTE procedure:2DECHO W DOPPLE R(CW/PW/COLOR) (Routine) Indications:Acute Chest Pain/ Suspected CAD. Clinical History CHF;CAD;DM;HTN;R&L CATH/PCI 06/08-08/08. Height: 61 inches Weight: 77.11 kg (170 lbs) BSA: 1.76 m^2 BMI: 32.12 kg/m^2 HR: 67 bpm BP: 126/51 mmHg Summary The left ventricle is chamber size (by vol index) is normal (female - LVED vol - 29-61ml/m2). Mild septal hypertro phy is present. All of the LV segments are mildly hypokinetic . LVEF by Beauchamp's method of disk assessment is mildly reduced (40-44%) . Unable to estimate peak systolic PA pre ssure; inadequate TR velocity signal. Previous Study In comparison with the prior exam on there are no significant changes. Signature Findings Left Ventricle The left ventric le is chamber size (by vol index) is normal (femal e - LVED vol - 29-61ml/m2). Mild septal hype rtrophy is present. All of the LV se gments are mildly hypokinetic . LVEF by Beauchamp' s method of disk assessment is mildly reduced ( 40-44%) . Left Atrium LA size is mildl y enlarged (35-41 ml/m2) . Right Ventricle The right ventri cular chamber size and systolic function are wit hin normal limits. Right Atrium RA size is mateo l. Aortic Valve Mild AoV cusp th ickening. Mitral Valve Mild MV leaflet thickening. Mild mitral marietta lar calcification. Mild mitral regu rgitation. Tricuspid Valve TV structure is normal. Unable to estima te peak systolic PA pressure; inadequate TR ve locity signal. Pulmonic Valve Normal PV struct ure appears normal by available views. Mild pulmonary r egurgitation. Aorta Aortic root size (SInus of Valsalva diameter) is normal . Pericardium No pericardial e ffusion is visualized. IVC/SVC/PA/PV/Pleural The estimated RA pressure by IVC dynamics 0-5mmHg . Chambers/Structures Left Atrium LA Dimension: 3.84 cm LA Area: 21.39 cm^2 LA Volume: 64.91 ml LA Vol. Index: 37 ml/m^2 Left Ventricle LVIDd: 5.36 cm LVEDV:114.75 ml LVIDs: 3.26 cm LVESV:52.6 ml LV Septum Diastolic: 1.32 cm LVEF 2D Cube: 56.3 % LV PW Diastolic: 1.11 cm LVEDV Beauchamp's:84.31 ml LV FS: 39.2 % LVESV Beauchamp's:49.14 ml LVEF Beauchamp's: 41.7 % LVEDVI: 48 ml/m^2 LVESVI: 28 ml/m^2 LVOT Diameter: 2.07 cm LVEF: 54.2 % Aorta Ao Root S of Mary Ellen.: 2.9 cm Doppler/Quantitative Measurements Mitral Valve MV Peak E-Wave: 0.68 m/s M V Peak A-Wave: 0 m/s E /A Ratio: 526.62 P eak Gradient: 1.87 mmHg MV Main. Peak: Aortic Valve Peak Velocity: 1.4 m/s Mean Velocity: 0.98 m/s Peak Gradient: 7.85 mmHg Mean Gradient: 4.34 mmHg AV Area (continuity): 1.93 cm^2 AV VTI: 34.2 cm AV DVI: 0.57 LVOT Peak Velocity: 0.86 m/s Pea k Gradient: 2.95 mmHg Mean Velocity: 0.56 m/s Shweta n Gradient: 1.48 mmHg LVOT Diameter: 2.07 cm LVO T VTI: 19.65 cm LVOT Area: 3.37 cm^2 LVO T SV:66.1 ml LVOT CO: 4.43 l/min LVO T CI: 2.52 l/min/m^2 Performing Organization Address City/[facility] Cent[facility]ode Phone Number [facility]ART[facility] MKCKESSON CPACS Lipoprotein (a) (01/26/2019 5:34 AM ZOOKEEPER) Lipoprotein (a) 57 <75 nmol/L [facility] Specimen Blood Narrative Performed At Performing Lab [facility] EZ [employer] Diagnostics [facility] [place] [address] [place] [address] I Bright BUENO, PhD, ROBY Performing Organization Address [facility] [place] Phone Number [facility] [place] [address] [facility] [id number] [facility] Prothrombin time/INR (01/25/2019 11:19 PM ZOOKEEPER)Only the most recent of3 results within the time period is included. Protime 13.2 11.9 - 14.2 seconds [facility] INR 1.1 <=5.9 [facility] Specimen Blood Narrative Performed At Effective 07/18/2018: PT Reference Range [facility] Change New: 11.9-14.2Previous: 11.7-14.7 RECOMMENDED COUMADIN/WARFARIN INR THERAPY RANGES STANDARD DOSE: 2.0-3.0Includes: PROPHYLAXIS for venous thrombosis, systemic embolization; TREATMENT for venous thrombosis and/or pulmonary embolus. HIGH RISK: Target INR is 2.5-3.5 for patients wiht mechanical heart valves. Prior to initiating heparin Performing Organization Address City/[facility]/Zipcode Phone Number [place] [phone] [place] [address] [facility] CARDIAC CATH REPORT - SCAN (12/27/2018 7:06 AM ZOOKEEPER) Narrative Performed At This result has an attachment that is no t available. Iron, TIBC, % sat. (without ferritin) (12/22/2018 4:53 AM CDT)Only the most recent of2 resultswithin the time period is included. Iron 85.0 40.0 - 160.0 ug/dL [facility] TIBC 226 (L) 250 - 450 ug/dL [facility] Iron % Saturation 38 20 - 55 % [facility] Specimen Blood Performing Organization Address [facility] Cent[place] [address] [facility] Ferritin (12/22/2018 4:53 AM CDT)Only the most recent of2 resultswithin the time period is included. Ferritin 195 5 - 275 ng/mL [facility] Specimen Blood Performing Organization Address [facility] [place] [address] [facility] Reticulocyte count (12/22/2018 4:52 AM CDT)Only the most recent of2 results within the time period is included. % Retic 2.0 (H) 0.5 - 1.7 % [facility] Specimen Blood Performing Organization Address [facility] Cent[place] [address] [facility] ECHOCARDIOGRAM REPORT - SCAN (12/21/2018 9:21 PM CDT) Narrative Performed At This result has an attachment that is no t available. 2D Echo W/Doppler(CW/PW/Color) (12/21/2018 10:22 AM CDT) Ejection Fraction [facility] Specimen Narrative Performed At Transthoracic Echocardiography Report (T TE) [facility] Demographics Patient Name SUZAN ARECHIGA Date of Study12/21/2018 ESCOBDEO [id number] Gender Female Visit Number [id number] Race [id number] Number Date 1940 [facility] Physician Age78 year(s) SonographColin Snider, RDCS,RVT,RDMS AnalystAlex ZadeInterpreting Kash Carr MD Physician Procedure Type of Study TTE procedure:2DECHO W DOPPLER(CW/PW/COLOR) (STAT) Indications:Acute Chest Pain/ Suspected CAD. Clinical History CAD, CHF, DM, Rt Cath PCI 08/08 Height: 61 inches Weight: 70.31 kg (155 lbs) BSA: 1.7 m^2 BMI: 29.29 kg/m^2 HR: 78 bpm BP: 160/80 mmHg Summary 2. Normal LV size. LV function is milldy reduced. LVEF is 45-49% 2. Diastology: Grade 1 diastolic dysfun ction 3. Normal RV size and function 4. No significant VHD 5. Unable to estimate PASP 6. No pericardial effusion Previous Study In comparison with the prior exam 11/11/2018 the following changes are noted: mildly depressed LVEF . Signature Findings Left Ventricle The left ventricle is chamber size (by vol index) is normal (female - LVED vol - 29-61ml/m2). Mild co ncentric LV hypertrophy. All of the LV s egments ar e mildly hypokinetic . LV diastolic func tion is in determinate. LV EF by Beauchamp's method of disk assessmen t is mi ldly reduced (45-49%) . Left AtriumLA size is moderately enlarged . Right VentricleNormal right ventricle structure and function. Right Atrium Normal right atrium. Aortic Valve Mild AoV cusp thickening. Mitral Valve Moderate MV leaflet thickening. Mild mitral annular ca lcification. Mild to moderate mitral re gurgitation. Tricuspid ValveA trace of tricuspid regurgitation. Un able to estimate peak systolic PA pressu re; in adequate TR velocity signal. Pulmonic Valve Normal PV structure and function by limited views an d Doppler. AortaAortic root size (SInus of Valsalva diameter) i s no rmal . PericardiumNo evidence of pericardial effusion. IVC/SVC/PA/PV/PleuralThe estimated RA pressure by IVC dynamics 5-10mmHg . Chambers/Structures Left Atrium LA Dimension: 4.01 cmLA Area: 22.46 cm^2 LA Volume: 75.96 ml LA Vol. Index: 45 ml/m^2 Left Ventricle LVIDd: 4.7 cm LVEDV:89.63 ml LV Septum Diastolic: 1.17 cm LV PW Diastolic: 1.19 cm LVEDV Beauchamp's:90.82 ml LVESV Beauchamp's:47.74 ml LVEF Beauchamp's: 47.4 % LVEDVI: 53 ml/m^2 LVESVI: 28 ml/m^2 LVOT Diameter: 2.02 cm Aorta Ao Root S of Mary Ellen.: 3.22 cm Doppler/Quantitative Measurements Mitral Valve MV Main. Peak: Tissue Doppler E' Lateral Velocity: 0.02 m/sA' Lateral Velocity: 0.06 m/s Aortic Valve Peak Velocity: 1.26 m/sMean Velocity: 0.85 m/s Peak Gradient: 6.33 mmHg Mean Gradient: 3.24 mmHg AV Area (continuity): 2.2 cm^2 AV VTI: 26.05 cm AV DVI: 0.69 LVOT Peak Velocity: 0.8 m/sPeak Gradient: 2.53 mmHg Mean Velocity: 0.58 m/s Mean Gradient: 1.5 mmHg LVOT Diameter: 2.02 cmLVOT VTI: 17.9 cm LVOT Area: 3.2 cm^2 LVOT SV:57.34 ml LVOT CO: 4.47 l/min LVOT CI: 2.63 l/min/m^2 Procedure Note Interface, External Ris In - 12/21/2018 12:36 PM CDT Transthoracic Echocardiography Report (TTE) Demographics Patient Name SUZAN ARECHIGA Date of Study 12/21/2018 SARAI Gender Female Visit Number [id number] Race Room [facility] 6105 Number Date of 1940 Referri ivette Palmer S Physici an Age 78 year(s) Sonogra pher Destini Silva NB, RDCS,RVT,RDMS [employer] Operator Nader Finley Interpr eting Kash Carr MD Physici an Procedure Type of Study TTE procedure:2DECHO W DOPPLE R(CW/PW/COLOR) (STAT) Indications:Acute Chest Pain/ Suspected CAD. Clinical History CAD, CHF, DM, Rt Cath PCI 08/08 Height: 61 inches Weight: 70.31 kg (155 lbs) BSA: 1.7 m^2 BMI: 29.29 kg/m^2 HR: 78 bpm BP: 160/80 mmHg Summary 2. Normal LV size. LV function is milld y reduced. LVEF is 45-49% 2. Diastology: Grade 1 diastolic dysfun ction 3. Normal RV size and function 4. No significant VHD 5. Unable to estimate PASP 6. No pericardial effusion Previous Study In comparison with the prior exam 2018 the following changes are noted: mildly depressed LVEF . Signature Findings Left Ventricle The left ventric le is chamber size (by vol index) is normal (femal e - LVED vol - 29-61ml/m2). Mild concentric LV hy pertrophy. All of the LV segments are mildly hypok inetic . LV diastolic function is indeterminate. LVEF by Beauchamp' s method of disk assessment is mildly reduced ( 45-49%) . Left Atrium LA size is moder ately enlarged . Right Ventricle Normal right jose f tricle structure and function. Right Atrium Normal right atr ium. Aortic Valve Mild AoV cusp th ickening. Mitral Valve Moderate MV leaf let thickening. Mild mitral annular calcification. M ild to moderate mitral regurgitation. Tricuspid Valve A trace of tricu spid regurgitation. Unable to estima te peak systolic PA pressure; inadequate TR ve locity signal. Pulmonic Valve Normal PV struct ure and function by limited views and Doppler. Aorta Aortic root size (SInus of Valsalva diameter) is normal . Pericardium No evidence of p ericardial effusion. IVC/SVC/PA/PV/Pleural The estimated RA pressure by IVC dynamics 5-10mmHg . Chambers/Structures Left Atrium LA Dimension: 4.01 cm LA Area: 22.46 cm^2 LA Volume: 75.96 ml LA Vol. Index: 45 ml/m^2 Left Ventricle LVIDd: 4.7 cm LVEDV:89.63 ml LV Septum Diastolic: 1.17 cm LV PW Diastolic: 1.19 cm LVEDV Beauchamp's:90.82 ml LVESV Beauchamp's:47.74 ml LVEF Beauchamp's: 47.4 % LVEDVI: 53 ml/m^2 LVESVI: 28 ml/m^2 LVOT Diameter: 2.02 cm Aorta Ao Root S of Mary Ellen.: 3.22 cm Doppler/Quantitative Measurements Mitral Valve MV Main. Peak: Tissue Doppler E' Lateral Velocity: 0.02 m/s A' Lateral Velocity: 0.06 m/s Aortic Valve Peak Velocity: 1.26 m/s Mean Velocity: 0.85 m/s Peak Gradient: 6.33 mmHg Mean Gradient: 3.24 mmHg AV Area (continuity): 2.2 cm^2 AV VTI: 26.05 cm AV DVI: 0.69 LVOT Peak Velocity: 0.8 m/s Pea k Gradient: 2.53 mmHg Mean Velocity: 0.58 m/s Shweta n Gradient: 1.5 mmHg LVOT Diameter: 2.02 cm LVO T VTI: 17.9 cm LVOT Area: 3.2 cm^2 LVO T SV:57.34 ml LVOT CO: 4.47 l/min LVO T CI: 2.63 l/min/m^2 Performing Organization Address City/State/Zipcode Phone Number [facility] LIZETTE OBRIEN MKCKALESSANDRO [facility] CRITICAL CARE (12/20/2018 8:19 PM CDT) Narrative Performed At Papito Peters MD 0193:29 PM Critical Care Performed by: Papito Peters MD Authorized by: Puneet Snider MD Total critical care time: 45 minutes Critical care time was exclusive of sepa rately billable procedures and treating other patients and teaching hao noni. Critical care was necessary to treat or prevent imminent or life-threatening deterioration of the fo llowing conditions: ACS. Critical care was time spent personally by me on the f ollowing activities: blood draw for specimens, discussions wi consultants, evaluation of patient's response to treatment, obtaini ng history from patient or surrogate, ordering and review of labora tory studies, pulse oximetry, review of old charts, re-evaluation of patient's condi tion, ordering and review of radiographic studies, ordering and performing treatments and interventions, examination of patient, development of treatment plan with patient or surrogate and interpretation of cardiac output measurements. PERMANENT LAB REPORT - SCAN (11/14/2018 12:32 PM CDT) Narrative Performed At This result has an attachment that is no t available. CARDIAC CATH REPORT - SCAN (11/14/2018 12:32 PM CDT) Narrative Performed At This result has an attachment that is no t available. NM myocardial perfusion PET (rest and stress) (11/12/2018 12:09 PM CDT) Specimen Narrative Performed At FINAL REPORT [facility] PROCEDURE: MYOCARDIAL PERFUSION PET IMAG ING (Rest/Stress) CPT CODE: 16095 INDICATION: Evaluate extent of known CAD , chest discomfort, CHF, obesity CARDIOVASCULAR PROFILE: CAD History: Known CAD status post PCI, ischemic cardiomyopathy Symptoms: Chest discomfort, dyspnea Risk Factors: Known CAD, diabetes, hyper tension, hyperlipidemia, obesity BMI: 30 Medications: Aspirin, Lipitor, carvedilo l, Plavix, heparin, nitroglycerin STRESS PROTOCOL: Pharmacologic stress was achieved with a 10-second intravenous infusion of regadenoson 0.4 mg. The radi opharmaceutical was administered 30 seconds after the start of the regadenoson infusion. IMAGING PROTOCOL: Limited low-dose CT imaging was performe d for attenuation correction. 40.1 mCi of Rb-82 chloride was injected intravenously at rest, and gated PET images were obtained. Then, 40 .2 mCi of Rb-82 chloride was injected intravenously at peak stress, a nd gated PET images were obtained. REST FINDINGS: HR: 96/min BP: 161/67 mmHg Prelim. EKG: Normal sinus rhythm, ST dep ression in inferolateral leads less than 1 mm. Perfusion: There is an absence of perfus ion in the apical inferior segment There is a moderate severity per fusion abnormality in the basal to apical anterior and apical sept al segments. Wall Motion: Severe basal to apical ante rior hypokinesis, the remaining segments show moderate hypokin esis. (LVEF 34%). LV Volume: Mildly increased. RV Volume: Normal. STRESS FINDINGS: HR: 105/min (73% of MPHR) BP: 170/55 mmHg Prelim. EKG: Persistent less than 1 mm S T depression in inferolateral leads, unchanged from rest. Symptoms: Chest discomfort, nausea, fati crystal (Treatment was [id number] IV). Perfusion: There is an absence of perfus ion in the apical inferior segment. There is a marked severity perf usion defect of the basal to apical anterior and apical septal segmen ts. There is a moderate severity perfusion defect of the basal t o mid inferior segments, basal to mid inferolateral, and apical l ateral segments. Wall Motion: Severe basal to apical ante rior hypokinesis, the remaining segments show moderate hypokin esis. (LVEF 37%). LV Volume: Not significantly changed fro m rest. IMPRESSION: 1. Abnormal study. 2. Abnormal myocardial perfusion. There is a large size, marked severity, mostly reversible perfusion ab normality in the anterior, apical, inferior and lateral LV concerni ng for multivessel disease. 3. Severely depressed resting LVEF of 34 %, which does not deteriorate with pharmacologic stress. 4. Normal extracardiac tracer distributi on. 5. There is no prior study for compariso n. Signed: Marcus Sultana MD Report Verified Date/Time:11/12/2018 15:26:40 Reading Location: [address] Nuc Med Reading Room Procedure Note Interface, External Ris In - 11/12/2018 3:28 PM CDT FINAL REPORT PROCEDURE: MYOCARDIAL PERFUSION PET IMAG ING (Rest/Stress) CPT CODE: 28210 INDICATION: Evaluate extent of known CAD , chest discomfort, CHF, obesity CARDIOVASCULAR PROFILE: CAD History: Known CAD status post PCI, ischemic cardiomyopathy Symptoms: Chest discomfort, dyspnea Risk Factors: Known CAD, diabetes, hyper tension, hyperlipidemia, obesity BMI: 30 Medications: Aspirin, Lipitor, carvedilo l, Plavix, heparin, nitroglycerin STRESS PROTOCOL: Pharmacologic stress was achieved with a 10-second intravenous infusion of regadenoson 0.4 mg. The radi opharmaceutical was administered 30 seconds after the start of the regadenoson infusion. IMAGING PROTOCOL: Limited low-dose CT imaging was performe d for attenuation correction. 40.1 mCi of Rb-82 chloride was injected intravenously at rest, and gated PET images were obtained. Then, 40 .2 mCi of Rb-82 chloride was injected intravenously at peak stress, a nd gated PET images were obtained. REST FINDINGS: HR: 96/min BP: 161/67 mmHg Prelim. EKG: Normal sinus rhythm, ST dep ression in inferolateral leads less than 1 mm. Perfusion: There is an absence of perfus ion in the apical inferior segment There is a moderate severity per fusion abnormality in the basal to apical anterior and apical sept al segments. Wall Motion: Severe basal to apical ante rior hypokinesis, the remaining segments show moderate hypokin esis. (LVEF 34%). LV Volume: Mildly increased. RV Volume: Normal. STRESS FINDINGS: HR: 105/min (73% of MPHR) BP: 170/55 mmHg Prelim. EKG: Persistent less than 1 mm S T depression in inferolateral leads, unchanged from rest. Symptoms: Chest discomfort, nausea, fati crystal (Treatment was [id number] IV). Perfusion: There is an absence of perfus ion in the apical inferior segment. There is a marked severity perf usion defect of the basal to apical anterior and apical septal segmen ts. There is a moderate severity perfusion defect of the basal t o mid inferior segments, basal to mid inferolateral, and apical l ateral segments. Wall Motion: Severe basal to apical ante rior hypokinesis, the remaining segments show moderate hypokin esis. (LVEF 37%). LV Volume: Not significantly changed fro m rest. IMPRESSION: 1. Abnormal study. 2. Abnormal myocardial perfusion. There is a large size, marked severity, mostly reversible perfusion ab normality in the anterior, apical, inferior and lateral LV concerni ng for multivessel disease. 3. Severely depressed resting LVEF of 34 %, which does not deteriorate with pharmacologic stress. 4. Normal extracardiac tracer distributi on. 5. There is no prior study for compariso n. Signed: Marcus Sultana MD Report Verified Date/Time: 11/12/2018 1 5:26:40 Reading Location: [place] [id number] Reading Room Performing Organization Address City/State/Zipcode Phone Number GE RIS Treadmill tolerance(Non-Nuclear Treadmill) (11/12/2018 12:06 PM CDT) Specimen Narrative Performed At Protocol Name Regadenoson GE MUSE Time In Exercise Phase 00:01:00 Max. Systolic BP 170 mmHg Max Diastolic BP 55 mmHg Max Heart Rate 105 BPM Max Predicted Heart Rate 142 BPM Reason For Termination Predetermined end point Reason for Test Chest Pain Known Coronary Artery Disease Target HR Formula (220 - Age)*100% Arrhythmias ventricular premature beats Resting ECG Normal Sinus Rhythm,ST depre ssion inferolateral l ST Changes ST DEPRESSION <1mm Flat Sloping Overall Impression Indeterminate due to pharmacological stress Chest Pain CHEST TIGHTNESS HR Response To Exercise BP Response To Exercise asa,lipitor,carvedilol plavix,heparin gtt,nitro Confirmed by fellow Radha Clay [id number]) on 11/12/2018 1:04:52 PM Confirmed by MD LOZANO JORGE ([id number]) on 11/23/2018 3:0 5:01 PM Procedure Note Interface, External Ris In - 11/23/2018 3:05 PM CDT Protocol Name Regadenoson Time In Exercise Phase 00:01:00 Max. Systolic BP 170 mmHg Max Diastolic BP 55 mmHg Max Heart Rate 105 BPM Max Predicted Heart Rate 142 BPM Reason For Termination Predetermined end point Reason for Test Chest Pain Known Coronary Artery Disease Target HR Formula (220 - Age)*100% Arrhythmias ventricular premature beats Resting ECG Normal Sinus Rhythm,ST depre ssion inferolateral l ST Changes ST DEPRESSION <1mm Flat Sloping Overall Impression Indeterminate due to pharmacological stress Chest Pain CHEST TIGHTNESS HR Response To Exercise BP Response To Exercise asa,lipitor,carvedilol plavix,heparin gtt,nitro Confirmed by fellow Radha Clay [id number]) on 11/12/2018 1:04:52 PM Confirmed by MD LOZANO JORGE ([id number]) on 11/23/2018 3:05:01 PM Performing Organization Address City/State/Zipcode Phone Number [facility] ECHOCARDIOGRAM REPORT - SCAN (11/11/2018 9:20 PM CDT) Narrative Performed At This result has an attachment that is no t available. Transthoracic 2D echo w/ doppler (cw/pw/color) (11/11/2018 1:14 PM CDT) Ejection Fraction [facility] TLAB MKCKESSON [facility] Specimen Narrative Performed At Transthoracic Echocardiography Report (T TE) [facility] MK[facility]ON [facility] Demographics Patient NameCARRISUZAN MOSES Date of Study11/11/2018 ESCOBDEO Gender Female Visit [id number] [place] [id number] Number Date of 1940 Referringmadeline Reece Physician Age 78 year(s) SonographerSly Sims [facility] [employer] Operator Amber Kaplan CS Interpreting Physician XIMENA Smith Procedure Type of Study TTE procedure:2DECHO W DOPPLER(CW/PW/COLOR) (Routine) Indications:Acute Chest Pain/ Suspected CAD. Clinical History Congestive Heart Failure Coronary Artery Disease Diabetes Hypertension 08/07/18 R & L Cath / Coronary Angios / P CI HGB 14 HCT 43.4 % Height: 61 inches Weight: 70.76 kg (156 lbs) BSA: 1.7 m^2 BMI: 29.48 kg/m^2 HR: 69 bpm BP: 96/84 mmHg Summary The left ventricle is chamber size (by vol index) is normal (female - LVED vol - 29-61ml/m2). All of the LV segments contract normally . LVEF by Beauchamp's method of disk assessment is normal (55-60%) . Grade 1 diastolic dysfunction (impaired relaxation and low-normal LA pressure). Unable to estimate peak systolic PA pressure; inadequate TR velocity signal. No pericardial effusion is visualized. Previous Study In comparison with the prior exam 08/15/2018 the following changes are noted: left ventricular systolic function has improved . Signature Findings Technical Quality: Technically adequate exam. Left Ventricle The left ventricle is chamber size (by vol index) is normal (female - LVED vol - 29-61ml/m2). No ev idence of LV hypertrophy. All of the LV segments co ntract normally . Global LV systolic fun ction no rmal . LVEF by Beauchamp's method of disk as sessment is normal (55-60%) . Grade 1 di astolic dy sfunction (impaired relaxation and low-n ormal LA pr essure). Consider IV ultrasound enhancin g agent fo r improved endocardial border detection. Left AtriumLA size is mildly enlarged (35-41 ml/m2) . Right VentricleRV chamber size appears normal by limited views . Gl obal RV systolic function is normal . Right Atrium RA size is normal. Aortic Valve Mild AoV cusp calcification. No evidence of aortic regurgitation. Mitral Valve Mild mitral annular calcification. Mi ld MV leaflet calcification. Tr matthias mitral regurgitation. Tricuspid ValveTV structure is normal. A trace of tricuspid regurgitation. Un able to estimate peak systolic PA pressu re; in adequate TR velocity signal. Pulmonic Valve Normal PV structure and function by limited views an d Doppler. AortaAortic root size (SInus of Valsalva diameter) i s no rmal . PericardiumNo pericardial effusion is visualized. IVC/SVC/PA/PV/PleuralThe estimated RA pressure by IVC dynamics 0-5mmHg . Chambers/Structures Left Atrium LA Volume: 62.66 mlLA Area: 20.5 cm^2 LA Vol. Index: 37 ml/m^2 Left Ventricle LVIDd: 5.3 cm LVIDs: 3.55 cm LV Septum Diastolic: 1 cm LV PW Diastolic: 0.94 cm LV FS : 33 % LVEDV Beauchamp's:80.02 ml LVESV Beauchamp's:32.94 ml LVEDVI: 47 ml/m^2 LVEF Beauchamp's: 58.8 % LVESVI: 19 ml/m^2 LVOT Diameter: 1.99 cm Right Ventricle TAPSE: 2.46 cm Aorta Ao Root S of Mary Ellen.: 2.99 cm Doppler/Quantitative Measurements Mitral Valve MV Peak E-Wave: 0.97 m/sMV Peak A-Wave: 1.32 m/s E/A Ratio: 0. 73 Peak Gradient: 3.74 mmHg Deceleration Time: 247.8 msec MV Main. Peak: Tissue Doppler E' Lateral Velocity: 0.04 m/s E/E': 23.67 Aortic Valve Peak Velocity: 1.35 m/sMean Velocity: 0.95 m/s Peak Gradient: 7.27 mmHg Mean Gradient: 4.06 mmHg AV Area (continuity): 1.9 cm^2 AV VTI: 30.68 cm AV DVI: 0.61 LVOT Peak Velocity: 0.8 m/sPeak Gradient: 2.57 mmHg Mean Velocity: 0.58 m/s Mean Gradient: 1.5 mmHg LVOT Diameter: 1.99 cmLVOT VTI: 18.77 cm LVOT Area: 3.11 cm^2LVOT SV:58.35 ml LVOT CO: 4.03 l/min LVOT CI: 2.37 l/min/m^2 Procedure Note Interface, External Ris In - 11/11/2018 4:06 PM CDT Transthoracic Echocardiography Report (TTE) Demographics Patient Name SUZAN ARECHIGA Date of Study 11/11/2018 ESCOBDEO [place] Female Visit Number [id number] Race Room Number 6102 Number Date of 1940 Refe rring Peyton Palmer S Phys ician Age 78 year(s) Sono roxann Sims RDCS [employer] Operator Amber Kaplan RDCS Inte rpreting Tramaine Cormier MD Procedure Type of Study TTE procedure:2DECHO W DOPPLE R(CW/PW/COLOR) (Routine) Indications:Acute Chest Pain/ Suspected CAD. Clinical History Congestive Heart Failure Coronary Artery Disease Diabetes Hypertension 08/07/18 R & L Cath / Coronary Angios / P CI HGB 14 HCT 43.4 % Height: 61 inches Weight: 70.76 kg (156 lbs) BSA: 1.7 m^2 BMI: 29.48 kg/m^2 HR: 69 bpm BP: 96/84 mmHg Summary The left ventricle is chamber size (by vol index) is normal (female - LVED vol - 29-61ml/m2). All of the LV segmen ts contract normally . LVEF by Beauchamp's method of disk assessment is normal (55-60%) . Grade 1 diastolic dysfunction (impaired relaxation and low-normal LA pressure). Unable to estimate peak systolic PA pre ssure; inadequate TR velocity signal. No pericardial effusion is visualized. Previous Study In comparison with the prior exam 2018 the following changes are noted: left ventricular systolic functi on has improved . Signature Findings Technical Quality: Technically adequate exam. Left Ventricle The left ventric le is chamber size (by vol index) is normal (femal e - LVED vol - 29-61ml/m2). No evidence of LV h ypertrophy. All of the LV segments contract normall y . Global LV systolic function normal . LVEF by Beauchamp's method of disk assessment is no rmal (55-60%) . Grade 1 diastolic dysfunction (imp aired relaxation and low-normal LA pressure). Consi cody IV ultrasound enhancing agent for improved end ocardial border detection. Left Atrium LA size is mildl y enlarged (35-41 ml/m2) . Right Ventricle RV chamber size appears normal by limited views . Global RV systol ic function is normal . Right Atrium RA size is mateo l. Aortic Valve Mild AoV cusp ca lcification. No evidence of a ortic regurgitation. Mitral Valve Mild mitral marietta lar calcification. Mild MV leaflet calcification. Trace mitral reg urgitation. Tricuspid Valve TV structure is normal. A trace of tricu spid regurgitation. Unable to estima te peak systolic PA pressure; inadequate TR ve locity signal. Pulmonic Valve Normal PV struct ure and function by limited views and Doppler. Aorta Aortic root size (SInus of Valsalva diameter) is normal . Pericardium No pericardial e ffusion is visualized. IVC/SVC/PA/PV/Pleural The estimated RA pressure by IVC dynamics 0-5mmHg . Chambers/Structures Left Atrium LA Volume: 62.66 ml LA Area: 20.5 cm^2 LA Vol. Index: 37 ml/m^2 Left Ventricle LVIDd: 5.3 cm LVIDs: 3.55 cm LV Septum Diastolic: 1 cm LV PW Diastolic: 0.94 cm LV FS: 33 % LVEDV Beauchamp's:80.02 ml LVESV Beauchamp's:32.94 ml LVEDVI: 47 ml/m^2 LVEF Beauchamp's: 58.8 % LVESVI: 19 ml/m^2 LVOT Diameter: 1.99 cm Right Ventricle TAPSE: 2.46 cm Aorta Ao Root S of Mary Ellen.: 2.99 cm Doppler/Quantitative Measurements Mitral Valve MV Peak E-Wave: 0.97 m/s M V Peak A-Wave: 1.32 m/s E /A Ratio: 0.73 P eak Gradient: 3.74 mmHg D eceleration Time: 247.8 msec MV Main. Peak: Tissue Doppler E' Lateral Velocity: 0.04 m/s E /E': 23.67 Aortic Valve Peak Velocity: 1.35 m/s Mean Velocity: 0.95 m/s Peak Gradient: 7.27 mmHg Mean Gradient: 4.06 mmHg AV Area (continuity): 1.9 cm^2 AV VTI: 30.68 cm AV DVI: 0.61 LVOT Peak Velocity: 0.8 m/s Pea k Gradient: 2.57 mmHg Mean Velocity: 0.58 m/s Shweta n Gradient: 1.5 mmHg LVOT Diameter: 1.99 cm LVO T VTI: 18.77 cm LVOT Area: 3.11 cm^2 LVO T SV:58.35 ml LVOT CO: 4.03 l/min LVO T CI: 2.37 l/min/m^[address] [facility] Phone Number [facility] MKCKESSON CPACS TSH/T4 if indicated (11/11/2018 12:39 AM CDT)Only the most recent of2 results within the time period is included. TSH 1.17 0.35 - 4.94 uIU/mL [facility] Specimen Blood Performing Organization Address [facility] [place] [address] CENTER Hepatic function panel (11/11/2018 12:39 AM CDT)Only the most recent of3 results within the time period is included. Protein, Total 7.3Comment: Specimen 6.0 - 8.3 gm/dL [facility] slightly hemolyzed [facility] Albumin 3.9Comment: Specimen 3.5 - 5.0 g/dL [facility] slightly hemolyzed [facility] Total Bilirubin 0.5Comment: Specimen 0.2 - 1.2 mg/dL [facility] slightly hemolyzed [facility] Bilirubin, Direct 0.2Comment: Specimen 0.1 - 0.5 mg/dL [facility] slightly hemolyzed [facility] Alkaline Phosphatase 129 40 - 150 U/L [facility] AST 18Comment: Specimen 5 - 34 U/L [facility] slightly hemolyzed [facility] ALT 11Comment: Specimen 6 - 55 U/L [facility] slightly hemolyzed [facility] Specimen Blood Performing Organization Address [facility] Phone Number [facility] [address] [place] [address] CENTER CARDIAC CATH REPORT - SCAN (08/21/2018 11:00 AM CDT) Narrative Performed At This result has an attachment that is no t available. CARDIAC CATH REPORT - SCAN (08/21/2018 11:00 AM CDT) Narrative Performed At This result has an attachment that is no t available. CT pelvis without IV contrast (08/16/2018 2:38 AM CDT) Specimen Narrative Performed At FINAL REPORT [facility] CT pelvis without contrast HISTORY: left groin/femoral wound infect ion COMPARISON: None Technique: serial axial imaging was perf ormed without intravenous contrast as per departmental protocol. Multiplanar images are reconstructed and reviewed when indicate d. This CT examination is performed using o ne or more of the following dose reduction techniques: Automated exposure control, adjustment o f the mA and /or kV according to patient size, and/or use of iterative reconstruction technique. FINDINGS: The visualized small and large bowel loo ps demonstrate no apparent thickening or obstruction. The patient is status post hysterectomy. The urinary bladder demonstrates no defi nite wall thickening or intraluminal mass. No pelvic lymphadenopathy, free fluid, o r hematoma is visualized. A small fat-containing umbilical hernia is noted. Soft tissue stranding is visualized with in the left lower quadrant abdominal wall as well as within the tani ateral inguinal regions, left greater than right. Overlying skin connor es are present within the left inguinal region, consistent with th e stated history of left inguinal wound. No organized/drainable f luid collection is visualized. Extensive, diffuse vascular calcificatio ns. No aggressive osseous lesion is seen. IMPRESSION: Localized swelling within the subcutaneo us fat of the bilateral inguinal regions (left greater than righ t) and left lower quadrant abdominal wall. No organized/drainable f luid collection. No findings of underlying osteomyelitis. Signed: Lucho Avery MD Report Verified Date/Time:08/16/2018 08:42:53 Reading Location: [facility] Radiology Reading Room Procedure Note Interface, External Ris In - 08/16/2018 8:45 AM CDT FINAL REPORT CT pelvis without contrast HISTORY: left groin/femoral wound infect ion COMPARISON: None Technique: serial axial imaging was perf ormed without intravenous contrast as per departmental protocol. Multiplanar images are reconstructed and reviewed when indicate d. This CT examination is performed using o ne or more of the following dose reduction techniques: Automated exposure control, adjustment o f the mA and /or kV according to patient size, and/or use of iterative reconstruction technique. FINDINGS: The visualized small and large bowel loo ps demonstrate no apparent thickening or obstruction. The patient is status post hysterectomy. The urinary bladder demonstrates no defi nite wall thickening or intraluminal mass. No pelvic lymphadenopathy, free fluid, o r hematoma is visualized. A small fat-containing umbilical hernia is noted. Soft tissue stranding is visualized with in the left lower quadrant abdominal wall as well as within the tani ateral inguinal regions, left greater than right. Overlying skin connor es are present within the left inguinal region, consistent with th e stated history of left inguinal wound. No organized/drainable f luid collection is visualized. Extensive, diffuse vascular calcificatio ns. No aggressive osseous lesion is seen. IMPRESSION: Localized swelling within the subcutaneo us fat of the bilateral inguinal regions (left greater than righ t) and left lower quadrant abdominal wall. No organized/drainable f luid collection. No findings of underlying osteomyelitis. Signed: Lucho Avery MD Report Verified Date/Time: 08/16/2018 0 8:42:53 Reading Location: [facility] Radiology Reading Room Performing Organization Address City/State/Zipcode Phone Number [employer] ECHOCARDIOGRAM REPORT - SCAN (08/15/2018 9:12 PM CDT) Narrative Performed At This result has an attachment that is no t available. Limited 2D Echocardiogram (08/15/2018 3:53 PM CDT) Ejection Fraction [facility] Specimen Narrative Performed At Transthoracic Echocardiography Report (T TE) [facility] Demographics Patient NameCARRISUZAN MOSES Date of Study08/15/2018 ESCOBDEO Gender Female Visit [id number] Race [place] c [id number] Number Date of 1940 [facility] Age 78 year(s) SonographerPretty reece [facility] Waste[employer] Treatment Plant Operator Amber Kaplan [facility] Interpreting Nat Pettit MD Procedure Type of [...] is moderately enlarged (female - LVED vol -71-80ml/m2 ) The following segment(s) appear severely hypokinetic: anterolateral and inferolateral. Beauchamp's method of disk assessment is nmymwtjaql-fr-vbcsen reduced (30%) . 2. The right ventricular [...] moderately enlarged (female - LVED vol -71-80ml/m2). Ewaisnfs-wl-grcqxr concentric LV hypertr ophy. Global LV systolic function opdkraci-wi-luumbwng reduced . LVEF by Beauchamp's method of disk assessment is wgldkhnlbz-bm-zkyyyj reduced (30%) . The following segment(s) appear [...] well visualized. Mitral Valve Mild MV leaflet calcificat ion. TricuspidTV structure is normal . Valve Pulmonic PV is not well visuali zed. Valve AortaAortic root size (SInus of Valsalva [...] Transthoracic Echocardiography Report (TTE) Demographics Patient Name SUZAN ARECHIGA Date of Study 08/15/2018 DUEKDEO Gend er Female Visit Number [id number] Race Room Number [id number] Number Date of 1940 Refe dali bradley Age 78 year(s) Sono grapher Pretty Long RDCS [employer] Treatment Plant Operator Amber Kaplan RDCS Inte [facility] Nat Pettit MD Procedure Type of Study TTE procedure:LIMITED 2D ECHO CARDIOGRAM (Routine) Indications:Shortness of breath and Eval EF Function. Clinical History Unstable angina, CKD Stage IV, IDDM, NST TASHA s/p Impella 08/01/18, L cath/PCI 08/01/18 HGB 8.7 HCT 27.2 % Contrast Medium: Definity. Amount - 2 ml Height: 61 inches Weight: 79.83 kg (176 lbs) BSA: 1.79 m^2 BMI: 33.25 kg/m^2 HR: 84 bpm BP: 112/47 mmHg Summary 1. The left ventricle is chamber size ( by vol index) is moderately enlarged (female - LVED vol -71-80ml/m2 ) The following segment(s) appear severel y hypokinetic: anterolateral and inferolateral. Beauchamp's method of disk assessment is zwaxomlilr-xf-bjrskp reduced (30%) . 2. The right ventricular chamber size a nd systolic function are within normal limits. Previous Study Compared to the previous study there wa s no significant change. Signature Findings Technical Quality: Technically adequate exam. Left Limited 2D exam (no Dopple r) to address study indication. Ventricle LV endocardium is adequate ly visualized with IV ultrasound enhancing agent. The left ventricle is chamber size (by vol index) is moderately enlar ged (female - LVED vol -71-80ml/m2). Moderate-to- severe concentric LV hypertrophy. Global LV systolic functio n semfobdl-sz-igxabnzp reduced . LVEF by Beauchamp's method o f disk assessment is repdnogiph-ht-wqyppb reduc ed (30%) . The following segment(s) a ppear severely hypokinetic: anterolateral and inferola teral. The other segments are hyp okinetic. Left Atrium LA is incompletely visuali zed, size based on linear measurement. LA size is mildly enlarged . Right The right ventricular ethan enrico size and systolic function are Ventricle within normal limits. Right Atrium RA size is normal. Aortic Valve The aortic valve is not we ll visualized. Mitral Valve Mild MV leaflet calcificat ion. Tricuspid TV structure is normal. Valve Pulmonic [...] period is included. Color, UA Light Yellow [facility] Clarity, UA Hazy [facility] Specific Superior, UA 1.009 1.001 - 1.035 [facility] pH, UA 6.0 5.0 - 8.[address] [facility] Protein, UA 30 mg/dL (A) Negative [facility] Glucose, UA Negative Negative [facility] Ketones, UA Negative Negative [facility] Bilirubin, UA Negative Negative [facility] Blood, UA Small (A) Negative [facility] Nitrite, UA Negative Negative [facility] Leukocytes, UA Large (A) Negative [facility] Urobilinogen, UA 0.2 0.2 - 1.0 mg/dL [facility] RBC, UA 0 /HPF [facility] WBC, UA >182 /HPF [facility] Bacteria, UA Many [facility] Squam Epithel, UA <1 /HPF [facility] Renal Epithelial 15 /HPF [facility] WBC Casts 14 /LPF [facility] Specimen Source [facility] Specimen Urine Performing Organization Address City/State/Zipcode Phone Number [facility] [address] [place] [address] [facility] Urine culture (08/14/2018 10:53 AM CDT)Only the most recent of2 resultswithin the time period is included. Result >100,000 col/mL Raoultella [facility] ornithinolytica (A) [facility] ER Gram Stain Result 4+ gram negative rods [facility] Gram Stain Result 4+ WBCs [facility] Specimen Urine Organism Antibiotic Method Susceptibility Raoultella ornithinolytica Amikacin <=2: Susceptible Raoultella ornithinolytica Ampicillin + Sulbactam >=32: Resistant [facility] ornithinolytica Aztreonam >=64: Resistant [facility] ornithinolytica Cefepime >=64: Resistant [facility] ornithinolytica Cefoxitin <=4: Susceptible [facility] ornithinolytica Ceftazidime >=64: Resistant [facility] ornithinolytica Ceftriaxone >=64: Resistant [facility] ornithinolytica Ertapenem <=0.5 : Susceptible [facility] ornithinolytica Gentamicin >=16: Resistant [facility] ornithinolytica Levofloxacin 1: Re sistant [place]ella ornithinolytica Meropenem <=0.2 5: Susceptible [facility] ornithinolytica Nitrofurantoin 32: S usceptible [facility]tella ornithinolytica Piperacillin + Tazobactam >=128: Resistant [facility] ornithinolytica Tetracycline <=1: Susceptible [place]ella ornithinolytica Tobramycin >=16: Resistant Ra[facility]tella ornithinolytica Trimethoprim + Sulfamethoxazole >=320: Resistant Performing Organization Address City/State/Zipcode Phone Number [facility] [address] [place] [address] [facility] Respiratory Panel [facility] (08/14/2018 10:18 AM CDT) Human Metapneumovirus Not detected Not detected, [facility] Equivocal [facility] Rhinovirus Not detected Not detected, [facility] Equ[employer]ocal [facility] Influenza A Not detected Not detected, [facility] Equ[employer]ocal [facility] INFLUENZA A (NO SUBTYPE) Not detected, [facility] Equivocal [facility] Influenza A subtype H1 Not detected, [facility] Equivocal [facility] Influenza A Subtype H3 Not detected, [facility] Equivocal [facility] Influenza A Subtype H1-2009 Not detected, [facility] Equivocal [facility] ER Influenza B Not detected Not detected, [facility] Equivocal [facility] Respiratory Syncytial Virus Not detected Not detected, [facility] Equivocal [facility] Parainfluenza Virus 1 Not detected Not detected, [facility] Equivocal [facility] Parainfluenza Virus 2 Not detected Not detected, [facility] Equivocal [facility] Parainfluenza virus 3 Not detected Not detected, [facility] Equ[facility]ocal [facility] Parainfluenza Virus 4 Not detected Not detected, [facility] Equivocal [facility] Adenovirus Not detected Not detected, [facility] Equivocal [facility] Coronavirus 229E Not detected Not detected, [facility] Equivocal [facility] Coronavirus HKU1 Not detected Not detected, [facility] Equivocal [facility] Coronavirus NL63 Not detected Not detected, [facility] Equivocal [facility] Coronavirus OC43 Not detected Not detected, [facility] Equivocal [facility] ER Bordetella Pertussis Not detected Not detected, [facility] Equivocal [facility] Chlamydophila Pneumoniae Not detected Not detected, [facility] Equivocal [facility] ER Mycoplasma Pneumoniae Not detected Not detected, [facility] Equivocal [facility] ER Specimen Nasopharyngeal Narrative Performed At Other viruses and bacteria not targeted by [facility] this PCR panel cannot be excluded; therefore clinical correlation and follow up of serology, culture results, and other molecular studies is required. The results are not intended to be used as the sole means for clinical diagnosis or patient management decisions. This sample was tested at the [facility] Molecular Diagnostics Laboratory using the [employer] Film[employer] Respiratory Panel. It is FDA cleared [...] B. Performing Organization Address City/State/Zipcode Phone Number [facility] [address] [place] [address] CENTER Manual Differential (08/14/2018 5:57 AM CDT)Only the most recent of2 results within the time period is included. % Neutros 86 % [facility] % Lymphs 4 % [facility] % Monos 5 % [facility] % Eos 2 % [facility] % Metamyelo 2 (H) 0 - 0 % [facility] % Myelo 1 (H) 0 - 0 % [facility] # Neutros 9.98 (H) 1.56 - 6.13 K/ul [facility] # Lymphs 0.46 (L) 1.18 - 3.74 K/ul [facility] # Monos 0.58 (H) 0.24 - 0.36 K/uL [facility] # Eos 0.23 0.04 - 0.36 K/uL [facility] # Metamyelo 0.23 (H) 0.00 - 0.00 K/uL [facility] # Myelo 0.12 (H) 0.00 - 0.00 K/uL [facility] Total Counted [address] [facility] [address] DEERFIELDMiguelS [facility] nRBC (manual) 1 (H) 0 - 0 /[address] [facility] WBC Morphology Normal [facility] Platelet Morphology Normal [facility] Polychromasia 1+ few [facility] Hypochromia 1+ few [facility] Artifact Present [facility] Platelet Conc Adequate [facility] Specimen Blood Narrative Performed At Received comment: [facility] User comments: Slide comments: Performing Organization Address [facility] Cent[facility] Phone Number [address] [address] [place] Blood gas, arterial (08/10/2018 2:27 PM CDT)Only the most recent of4 results within the time period is included. pH, Arterial 7.44 7.35 - 7.45 [facility] pCO2, Arterial 38 35 - 45 mmHg [facility] pO2, Arterial 165 (H) 80 - 90 mmHg [facility] O2 Sat, Arterial 99.2 (H) 96.0 - 97.0 % [facility] HCO3, Arterial 26 21 - 29 mmol/L [facility] Base Excess, Arterial 1.1 -2.0 - 3.0 mmol/L [facility] Francisco Javier [facility] Patient Temperature 36.4 C [facility] FIO2 44.0 % [facility] Specimen Blood, Arterial Performing Organization Address [facility]/Zipcode Phone Number [address] [address] [place] Lactic Acid, Arterial (08/10/2018 2:26 PM CDT)Only the most recent of4 results within the time period is included. Lactate, Art 0.9 0.5 - 2.2 mmol/L [facility] Specimen Blood, Arterial Performing Organization Address City/State/Zipcode Phone Number [facility] [address] [place] [address] [facility] ECHOCARDIOGRAM REPORT - SCAN (08/06/2018 9:21 PM CDT) Narrative Performed At This result has an attachment that is no t available. 2D Echo W/Doppler(CW/PW/Color) (08/06/2018 10:34 AM CDT) Ejection Fraction [facility] TLAB [facility] Specimen Narrative Performed At Transthoracic Echocardiography Report (T TE) [facility] C[facility] Demographics Patient NameCARRILLOSUZAN Date of Study08/06/2018 ESCOBDEO Gender Female Visit [id number] Race His[place] c [id number] Number Date of 1940 Juan Danielmadeline Reece Physician Age 78 year(s) SonographerPretty reece RDCS [employer] Plant Operator Amber Kaplan RDCS Interpreting Garry davis, Physician Procedure Type of Study TTE procedure:LIMITED [...] Previous Study Compared to the previous study 9 LV systolic function appears reduced. Signature Findings Technical Quality: Technically adequate exam. Rhythm/BPSinus tachycardia during the exam. Left Ventricle Limited 2D exam and Doppler exam to address study in dication. LV endocardium is adequately v isualized wi th IV ultrasound enhancing agent. The le ft ve ntricle is chamber size (by vol index) i s mildly en larged (female - LVED 62-70ml/m2). Mild co ncentric LV hypertrophy. LV segments are hy pokinetic. Estimated LVEF by qualitative as sessment is moderately to severely reduc ed (30%) . Degree of diastolic dysfunction (LAP ass essment) is inconclusive due to tachycardia and limi elva im aging. Left AtriumLA size is moderately [...] Un able to estimate peak systolic PA pressu re; in adequate TR velocity signal. Pulmonic Valve PV is not visualized. AortaAortic root size (SInus of Valsalva diameter) i s no rmal . PericardiumNo pericardial effusion is [...] Transthoracic Echocardiography Report (TTE) Demographics Patient Name SUZAN ARECHIGA Date of Study 08/06/2018 ESCOBDEO Gend er Female Visit Number [id number] Race Room Number [id number] Number Date of 1940 Refe ing Peyton Palmer S Tramaine bradley Age 78 year(s) Sono roxann Long [facility] Wastewater Treatment Plant Operator Amber Kaplan RDCS Inte rpreting Tramaine Cormier MD Procedure Type of Study TTE procedure:LIMITED 2D ECHO CARDIOGRAM (Routine) Indications:Acute Chest Pain/ Suspected CAD. Clinical History Unstable angina, CKD Stg IV, IDDM, NSTEM I s/p Impella 08/01/18, L cath/PCI 08/01/18 HGB 9.1 HCT 27.9 % Contrast Medium: Definity. Amount - 2 ml Height: 61 inches Weight: 79.83 kg (176 lbs) BSA: 1.79 m^2 BMI: 33.25 kg/m^2 HR: 107 bpm BP: 133/67 mmHg Summary Limited 2D exam and Doppler exam to add ress study indication. The left ventricle is chamber size (by vol index ) is mildly enlarged (female - LVED 62-70ml/m2). Mild concentric LV hypertr ophy. LV segments are hypokinetic. Estimated LVEF by qualitative assessmen t is moderately to severely reduced (30%) . Degree of diastolic dysfunction (LAP as sessment) is inconclusive due to tachycardia and limited imaging. No pericardial effusion is visualized. Previous Study Compared to the previous study 9 LV systolic function appears reduced. Signature Findings Technical Quality: Technically adequate exam. Rhythm/BP Sinus tachycardi a during the exam. Left Ventricle Limited 2D exam and Doppler exam to address study indication. LV e ndocardium is adequately visualized with IV ultrasou nd enhancing agent. The left ventricle is yosvany mber size (by vol index) is mildly enlarged (female - LVED 62-70ml/m2). Mild concentric LV hy pertrophy. LV segments are hypokinetic. Est imated LVEF by qualitative assessment is mo derately to severely reduced (30%) . Degree of lopez tolic dysfunction (LAP assessment) is inconclusive due to tachycardia and limited imaging. Left Atrium LA size is moder ately enlarged (42-48 ml/m2) . Right Ventricle The right ventri cular chamber size and systolic function are wit hin normal limits. Right Atrium RA cavity size i s normal . Aortic Valve Mild AoV cusp th ickening. AoV cusp mobilit y is normal . Mitral Valve Mild mitral marietta lar calcification. Mild MV leaflet thickening. Mild mitral regu rgitation. Tricuspid Valve The tricuspid va lve is not well visualized. Unable to estima te peak systolic PA pressure; inadequate TR ve locity signal. Pulmonic Valve PV is not visual ized. Aorta Aortic root size (SInus of Valsalva diameter) is normal . Pericardium No pericardial e ffusion is visualized. IVC/SVC/PA/PV/Pleural The estimated RA pressure by IVC dynamics indeterminate . The inferior jose f a cava is not visualized. Chambers/Structures Left Atrium [...] cm^2 Performing Organization Address City/State/Zipcode Phone Number [facility] [employer] ECHOCARDIOGRAM REPORT - SCAN (08/03/2018 9:22 PM CDT) Narrative Performed At This result has an attachment that is no t available. Limited 2D Echocardiogram (08/03/2018 11:17 AM CDT) Ejection Fraction [facility] ECHO HEAR TLAB inst[employer]Magic [facility] Specimen Narrative Performed At Transthoracic Echocardiography Report (T TE) [facility] Sgnam [facility] Demographics Patient NameCARRILLO, ENEDELIADate of Study08/03/2018 ESCOBDEO Female Visit [id number] Room [id number] Number Date of 1Referring Peyton Reece Physician Age 78 year(s)Broker Assistant Cheryl Phan RCS Waste[employer] Treatment Plant Operator Nader Finley Interpreting Kash ceja Physician Procedure Type of Study TTE procedure:LIMITED [...] and function 4. No significant valvular heart diseas e 5. Unable to estimate PASP 6. No pericardial effusion Previous Study No previous study available for compari son Signature Findings Left Ventricle LV endocardium is adequately visualized with IV ul trasound enhancing agent. The left ventr icle is ch jonas size (by vol index) is normal (fem rogers - LV ED vol - 29-61ml/m2). Mild concentric LV hy pertrophy. The following segment(s) appe ar hy pokinetic: anterolateral, inferolateral and mid to apical anterior wall. . The other segmen ts co ntract normally. Global LV systolic func tion lo wer limits of normal . Estimated LVEF by qu alitative assessment is moderately reduc ed (36%) Left AtriumLA size is mildly enlarged [...] AortaAortic root size (SInus of Valsalva diameter) i s no rmal . PericardiumNo evidence of pericardial [...] Transthoracic Echocardiography Report (TTE) Demographics Patient Name SUZAN ARECHIGA e of Study 08/03/2018 ESCOBDEO Gen cody Female Visit Number [id number] Rac e Janeth Number [id number] Number Date of 1940 Ref erring Peyton Prasadsol ascencio Age 78 year(s) Son timothy Phan, [facility] Wastewater Treatment Plant Operator Nader Finley Int erpreting Oscar Bedoya MD Procedure Type of Study TTE procedure:LIMITED 2D ECHO CARDIOGRAM (RHETT) Indications:Eval EF Function. Clinical History CKD, [...] and function 4. No significant valvular heart diseas e 5. Unable to estimate PASP 6. No pericardial effusion Previous Study No previous study available for compari son Signature Findings Left Ventricle LV endocardium i s adequately visualized with IV ultrasound enhan cing agent. The left ventricle is chamber size (by vol index) is normal (female - LVED vol - 29-61 ml/m2). Mild concentric LV hypertrophy. The following segment(s) appear hypokinetic: ant erolateral, inferolateral and mid to apical anteri or wall. . The other segments contract normall y. Global LV systolic function lower limits of normal . Estimated LVEF by qualitative asse ssment is moderately reduced (36%) Left Atrium LA size is mildl y enlarged . Right Ventricle Normal right jose f tricle structure and function. Right Atrium Normal right atr ium. Aortic Valve Mild AoV cusp th ickening. Mitral Valve Mild MV leaflet thickening. Mild mitral annular calcification. Tricuspid Valve Unable to estima te peak systolic PA pressure; inadequate TR ve locity signal. Pulmonic Valve PV is not well v isualized. Aorta Aortic root size (SInus of Valsalva diameter) is normal . Pericardium No evidence of p ericardial effusion. IVC/SVC/PA/PV/Pleural The estimated RA pressure by [...] Mary Ellen.: 3.1 cm Performing Organization Address City/State/Zipcode Phone Number [facility] MKCKESSON [facility] Vitamin B12 and Folate (08/03/2018 1:51 AM CDT) Vitamin B12 212 (L) 213 - 816 pg/mL [facility] Folate 15.1 >=7.0 ng/mL [facility] Specimen Blood Performing Organization Address [facility] [place] Phone Number [address] [address] [place] Potassium-Stat Lab (08/02/2018 3:52 AM CDT)Only the most recent of3 results within the time period is included. Potassium 4.6 3.6 - 5.5 meq/L [facility] Specimen Blood, Arterial Performing Organization Address [facility] Phone Number [address] [address] [place] Sodium Na-Stat Lab (08/02/2018 3:52 AM CDT)Only the most recent of3 results within the time period is included. Sodium 136 135 - 148 meq/L [facility] Specimen Blood, Arterial Performing Organization Address [facility] [place] Phone Number [address] [address] [place] Glucose-Stat Lab (08/02/2018 3:52 AM CDT)Only the most recent of3 resultswithin the time period is included. Glucose 272 (H) 70 - 110 mg/dL [facility] Specimen Blood, Arterial Performing Organization Address City/[facility] Phone Number [address] [address] CENTER HGB/HCT (H&H)-Stat Lab (08/02/2018 3:52 AM CDT)Only the most recent of3 resultswithin the time period is included. Hemoglobin 10.9 (L) 12.0 - 15.0 g/dL [facility] Hematocrit 32.0 (L) 36.0 - 45.0 % [facility] Specimen Blood, Arterial Performing Organization Address [facility] Phone Number [address] [address] [place] ECHOCARDIOGRAM REPORT - SCAN (08/01/2018 9:21 PM CDT) Narrative Performed At This result has an attachment that is no t available. Oxygen saturation, measured (08/01/2018 7:07 PM CDT) O2 Saturation (Measured) 41.9 % [facility] Specimen Blood Performing Organization Address [facility] Phone Number [address] [address] [place] Fibrinogen (08/01/2018 7:07 PM CDT) Fibrinogen 336 225 - 434 mg/dl [facility] Specimen Blood Performing Organization Address [facility] Phone Number [address] [address] [place] Electrolytes (08/01/2018 7:07 PM CDT) Sodium 137 136 - 145 meq/L [facility] Potassium 4.8Comment: Specimen slightly 3.5 - 5.1 meq/L [facility] hemolyzed [facility] Chloride 109 (H) 98 - 107 meq/L [facility] CO2 20 (L) 22 - 29 meq/L [facility] Specimen Blood Narrative Performed At Call k > 5, [phone] [facility] Performing Organization Address [facility] Phone Number [address] [address] [place] Hemoglobin and hematocrit (08/01/2018 4:16 PM CDT) Hemoglobin 10.1 (L) 11.2 - 15.7 GM/DL [facility] Hematocrit 31.6 (L) 34.1 - 44.9 % [facility] Specimen Blood Performing Organization Address City/[facility]/Zipcode Phone Number [facility] [address] [place] [address] [place] Platelet Aggregation: Function Screen (08/01/2018 8:04 AM CDT) Weak ADP 34 (L) 60 - 91 % [facility] ER Plt. Function Screen 0-39% indicates marked [facility] Interpretation platelet dysfunction [facility] Pathologist: Talia Villarreal MD [facility] (electronic signature) [facility] AL [place] Platelets 186 150 - 450 K/CU [facility] MM [facility] ER Specimen Blood Narrative Performed At Platelet Function Screen results may be [facility] falsely low with platelet counts <100,000/cu mm. Performing Organization Address [facility] Phone Number [address] [address] [place] Thrombin time (08/01/2018 4:18 AM CDT) Thrombin Time 64.9 (H) 13.8 - 20.0 secs [facility] Specimen Blood Narrative Performed At Draw baseline aPTT prior to infusion [facility] Performing Organization Address City/[facility]/Zipcode Phone Number [address] [address] [place] 2D Echo W/Doppler(CW/PW/Color) (08/01/2018 2:05 AM CDT) Ejection Fraction [facility] ECHO HEAR TLAB MKCKESSON [facility] Specimen Narrative Performed At Transthoracic Echocardiography Report (T TE) [facility] ECHO HEARTLAB [facility] Demographics Patient NameCARRILLOSUZAN Date of Study 08/01/2018 ESCOBDEO GenderFemale Visit [id number] RaceUnknown Number [id number] Number Date of 1940 Referring Peyton Reece Physician Age 78 year(s) Broker Assistant Nat Kuhn RDCS, RVT InterpretingStep david Pettit Physician FellowRadha Ferraro MD Procedure Type of Study TTE procedure:2DECHO W DOPPLER(CW/PW/COLOR) (STAT) Indications:Acute Chest Pain/ Suspected CAD. Clinical History HGB 13 HCT 41.2 % Height: 61 inches Weight: 77.56 kg (171 lbs) BSA: 1.77 m^2 BMI: 32.31 kg/m^2 HR: 79 bpm BP: 132/67 mmHg Summary 1. All of the LV segments contract norm ally . LVEF by Beauchamp's method of disk assessment is lower limits of normal (50-55%) . 2. Estimated peak systolic PA pressure is cannot be determined due to inadequate TR velocity signal . 3. Grade 2 diastolic dysfunction (moderately increased LA pressure). Previous Study No prior studies available for comparis on. Signature Findings Rhythm/BPRegular sinus rhythm during the exam. Left Ventricle The LV endocardium is adequately visualized. Th e left ventricle is chamber size (by vol index) is small. LV septal thickness is mildly increased (1 .2-1.4cm). LV posterior wall thickness i s normal (0 .6-1.1cm) . Al l of the LV segments contract normally . LV EF by Beauchamp's method of disk assessmen t is lo wer limits of normal (50-55%) . Gr kaycee 2 diastolic dysfunction (moderately increased LA pressure). Left AtriumLA size is severely enlarged (>48 ml/m2) . LA is adequately visualized. Right VentricleNormal right ventricular systolic function. Th e right ventricular cavity size is mateo l . Right Atrium RA size is probably normal based on available vi ews. Atrial SeptumThe interatrial septum is adequately visualized. No rmal interatrial septum by available vie ws. Aortic Valve Normal AoV structure and function. No evidence of aortic regurgitation. No evidence of aortic stenosis. Mitral Valve Moderate MV leaflet thickening. MV calcification is prominent in leaflet le ading ed ges . Tricuspid ValveA trace of tricuspid regurgitation. Es timated peak systolic PA pressure is can not be de termined due to inadequate TR velocity s ignal . TV structure is normal. Pulmonic Valve Normal PV structure and function by limited views an d Doppler. AortaAortic root size (SInus of Valsalva diameter) i s no rmal . PericardiumNo significant pericardial effusion is visualized. IVC/SVC/PA/PV/PleuralThe estimated RA pressure by IVC dynamics 0-5mmHg . Th e inferior vena cava size is normal . He patic Vein pulsed Doppler pattern is nor mal . Chambers/Structures Left Atrium LA Volume: 86.12 [...] m/sMV Peak A-Wave: 1.39 m/s E/A Ratio: 1. 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 Clinical History HGB 13 HCT 41.2 % Height: 61 inches Weight: 77.56 kg (171 lbs) BSA: 1.77 m^2 BMI: 32.31 kg/m^2 HR: 79 bpm BP: 132/67 mmHg Summary 1. All of the LV segments contract norm ally . LVEF by Beauchamp's method of disk assess ment is lower limits of normal (50-55%) . 2. Estimated peak systolic PA pressure is cannot be determined due to inadequate TR velocity signal . 3. Grade 2 diastolic dysfunction (moder ately increased LA pressure). Previous Study No prior studies available for comparis on. Signature Findings Rhythm/BP Regular sinus rh ythm during the exam. Left Ventricle The LV endocardi um is adequately visualized. The left ventric le is chamber size (by vol index) is small. LV septal thickn ess is mildly increased (1.2-1.4cm). LV posterior wall thickness is normal (0.6-1.1cm) . All of the LV se gments contract normally . LVEF by Beauchamp' s method of disk assessment is lower limits of normal (50-55%) . Grade 2 diastoli c dysfunction (moderately increased LA pressure). Left Atrium LA size is sever medina enlarged (>48 ml/m2) . LA is adequately visualized. Right Ventricle Normal right jose f tricular systolic function. The right ventri cular cavity size is normal . Right Atrium RA size is proba rebecca normal based on available views. Atrial Septum The interatrial septum is adequately visualized. Normal interatri al septum by available views. Aortic Valve Normal AoV struc ture and function. No evidence of a ortic regurgitation. No evidence of a ortic stenosis. Mitral Valve Moderate MV leaf let thickening. MV calcification is prominent in leaflet leading edges . Tricuspid Valve A trace of tricu spid regurgitation. Estimated peak s ystolic PA pressure is cannot be determined due t o inadequate TR velocity signal . TV structure is normal. Pulmonic Valve Normal PV struct ure and function by limited views and Doppler. Aorta Aortic root size (SInus of Valsalva diameter) is normal . Pericardium No significant p ericardial effusion is visualized. IVC/SVC/PA/PV/Pleural The estimated RA pressure by IVC dynamics 0-5mmHg . The inferior jose f a cava size is normal . Hepatic Vein pul sed Doppler pattern is normal . Chambers/Structures Left [...] Mitral Valve MV Peak E-Wave: 1.46 m/s M V Peak A-Wave: 1.39 m/s E /A Ratio: 1.05 P eak Gradient: 8.49 mmHg D eceleration Time: 261.9 msec MV Main. Peak: Tissue Doppler E' Lateral Velocity: 0.08 m/s A ' Lateral Velocity: 0.1 m/s E /E': 18.74 Aortic Valve Peak Velocity: 1.47 m/s Mean Velocity: 1.06 m/s Peak Gradient: 8.68 mmHg Mean Gradient: 5.05 mmHg AV Area (continuity): 1.91 cm^2 AV VTI: 36.4 cm AV DVI: 0.59 LVOT Peak Velocity: 0.96 m/s Pea k Gradient: 3.65 mmHg Mean Velocity: 0.59 m/s Shweta n Gradient: 1.71 mmHg LVOT Diameter: 2.04 cm LVO T VTI: 21.31 cm LVOT Area: 3.27 cm^2 LVO T SV:69.62 ml LVOT CO: 5.5 l/min LVO T CI: 3.11 l/min/m^2 Performing Organization Address City/State/[facility] Phone Number [facility] after 07/24/2018 Insurance Payer Benefit Plan / Group Subscriber ID Type Phone A ddress Pictorama[employer]PRING PictoramaSPGojee ALL xxxxxxxx Maps Contracted MEDICAID [place]ICAID [place] xxxxxxxxx Medicaid Advance Directives Patient has advance care planning documents, and code status on file. For more information, please contact:[place] [address] [address] [place], [place] [phone] Code Status Date Activated Date Inactivated Comments Full Code 05/27/2019 11:35 PM 05/29/2019 6:18 PM This code status was determined by: Patient Full Code 03/22/2019 2:13 PM 03/23/2019 4:40 PM This code status was determined by: Patient Full Code 01/25/2019 10:21 PM 01/30/2019 12:50 PM This code status was determined by: Patient Full Code 12/20/2018 9:06 PM 12/25/2018 2:50 PM This code status was determined by: Patient Full Code 11/11/2018 12:15 AM 11/13/2018 4:22 PM This code status was determined by: Patient
--- OUTSIDE RECORDS SUMMARY | 2019-07-25 13:26 | XMS REPORT ---
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
--- OUTSIDE RECORDS SUMMARY | 2019-07-25 13:26 | XMS REPORT ---
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 Problem 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 Ac tive classified elsewhere Problem Chronic kidney disease, stage 4 N18.4 Active (severe) Medications Medication Code Code Instructions Start End Status Dosage System Date Date Humalog [facility] 03680818127 100 UNIT/ML Active as direc elva Subcutaneous Lipitor [facility] 45344901915 80 MG Orally Active 1 table t Once a day Tradjenta [facility] 65414778031 5 MG Orally Active 1 tabl et Once a day Metoprolol [facility] 49446947514 50 MG Orally Active 1 ta blet Tartrate Twice a day with food Nitrostat [facility] 23738971073 0.4 MG Active as directe d Sublingual 3 doses within 15 minutes PRN CHEST PAIN Lactobacillus NDC 0 Active not define d Protonix [facility] 90162283551 40 MG Orally Active 1 pack et Once a day mixed with apple juice or applesauce Cyanocobalamin [facility] [address]-69 1000 MCG Active 1 tablet Orally Once a day Tresiba FlexTouch [facility] 02890644568 200 UNIT/ML Active 10 units Subcutaneous daily Atorvastatin [facility] 85154326071 80 MG Active TAKE 1 Calcium TABLET BY MOUTH EVERY DAY Bumetanide [facility] 63530978220 1 MG Oral Active TAKE 1 TABLET BY MOUTH TWICE A DAY Senna S [facility] 65854817536 8.6-50 MG Active 1 tablet i n Orally Once a the evenin g day as needed Folic Acid [facility] 15351876040 1 MG Active TAKE 1 TABLET BY MOUTH EVERY DAY Calcitriol [facility] 76917892387 0.5 MCG Active TAKE 1 CAPSULE BY MOUTH EVERY DAY BD Pen Needle [facility] 39758072978 31G X 5 MM Active USE Mini U/F DIRECTED Vitamin D-3 [facility] 55435679320 5000 UNIT Active as dir ected Orally Ferrous Sulfate [facility] 64084601925 325 (65 Fe) MG Activ e TAKE 1 Oral TABLET BY MOUTH TWICE A DAY Calcitriol [facility] [address]-18 0.5 MCG Active TAKE 1 CAPSULE BY MOUTH EVERY DAY Cranberry Extract [facility] 00805-61298 Active no t defined Clopidogrel [facility] 19798181351 75 MG Orally Active 1 t ablet Bisulfate Once a day Thiamine HCl [facility] 93511992718 100 MG Orally Active 1 tablet Once a day Aspir-Low [facility] 71370416239 81 MG Orally Active 1 tab let Once a day Clopidogrel [facility] 15728274962 75 MG Active TAKE 1 Bisulfate TABLET BY MOUTH EVERY DAY Results No Known Results Summary Purpose eClinicalWorks Submission
--- OUTSIDE RECORDS SUMMARY | 2019-07-25 13:26 | XMS REPORT ---
:1940 Author Organization [employer] Care Team Providers Name Role Phone John Perry Provider Role Unavailable Allergies No Known Allergies Problems Problem Type Condition Code Onset Dates Condition Statu s Assessment Atrial flutter, unspecified type I48.92 Active Assessment Stented coronary artery Z95.5 Acti ve Assessment Coronary artery disease involving I25.110 Active [place] coronary artery of [place] heart with unstable angina pectoris Problem Mixed [...] Coronary artery disease involving I25.110 Active [place] coronary artery of [place] heart with unstable angina pectoris Problem At risk for falling Z91.81 Active Problem Atherosclerosis of [place] coronary I25.10 Active artery Problem Chronic kidney disease (CKD), stage N18.4 Active IV (severe) Problem Other osteoporosis M81.8 Active Problem Hypertensive heart disease without I11.9 Active heart failure 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
--- OUTSIDE RECORDS SUMMARY | 2019-07-25 13:26 | XMS REPORT | Continuity of Care Document ---
:1940 Author Organization [facility] t Address [address] [place] [address] [address] [place] [address] Care Team Providers Name Role Phone EVELIN MAHMOOD Attending Clinician Unavailable GRETA GAMEZ Attending Clinician Unavailable ALEKSANDER COOK Attending Clinician Unavailable CHARU AUGUSTINE Attending Clinician Unavailable Дмитрий CORTES Attending Clinician Unavailable Olman STUART Attending Clinician Unavailable Дмитрий CORTES Admitting Clinician Unavailable QUENTIN GONGORA Admitting Clinician Unavailable ALEKSANDER COOK Admitting Clinician Unavailable PAUL Admitting Clinician Unavailable Olman STUART Admitting Clinician Unavailable Payers Payer Name Policy Type Policy Number Effective Date Expiration Date S ource Problems Condition Condition Condition Status Onset Resolution Last Treating Co mments Source Name Details Category Date Date Treatment Clinician Date Cervical Cervical Problem [facility] - of spine of spine Memori a l [facility] Other Other Problem Active [facility] osteoporos osteoporos Amalia kes - is is Memoria l [facility] Stented Stented Problem Active [facility] coronary coronary [facility] - artery artery Memoria l [facility] Proteinuri Proteinuri Problem Active [facility] a, a, [facility]ukes - unspecifie unspecifie Me moria d d l [facility]ics 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 Lukes - chipewwa chipewwa Memoria coronary coronary l artery artery Outpati ent Clinics H/O stroke H/O stroke Problem Active [facility] without without [facility]ukes - residual residual Memori a deficits deficits l [facility] At risk At risk Problem Active [facility] for for [facility] - falling falling Memoria l Outpati ent Clinics Chronic Chronic Problem Active [facility] kidney kidney [facility]ukes - disease, disease, Memori a stage 4 stage 4 l (severe) (severe) Outpat i ent Clinics 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 [facility] current current [facility] - use of use of Memoria insulin insulin l Outpati ent Clinics 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 Memori a with with l diabetic diabetic Outpat i chronic chronic ent kidney kidney Clinics disease disease Cardiomyop Cardiomyop Problem Active [facility] athy in athy in Lukes - disease disease Memoria classified classified l elsewhere elsewhere Outp ati ent Clinics Mixed Mixed Problem Active [facility] hyperlipid hyperlipid Amalia kes - emia emia [facility] Hypertensi Hypertensi Problem Active [facility] ve heart ve heart Lukes - disease disease Memoria without without l heart heart Outpati failure failure ent Clinics Cervical Cervical Problem Active [facility] stenosis stenosis [facility] - (uterine (uterine Memori a cervix) cervix) l [facility] Primary Primary Problem Active [facility] hypersomni hypersomni Amalia kes - a a Memoria l [facility] Primary Primary Problem Active [facility] osteoarthr osteoarthr Amalia kes - itis of itis of Memoria left knee left knee l [facility] Primary Primary Problem Active [facility] osteoarthr osteoarthr Amalia kes - itis of itis of Memoria right knee right knee l [facility] Pain, Pain, Problem Active [facility] joint, joint, [facility] - knee, knee, Memoria right right l [facility] Acute pain Acute pain Problem Active [facility] of left of left [facility] - knee knee Memoria l [facility] Adult BMI Adult BMI Problem Active [facility] 36.0-36.9 36.0-36.9 Luke s - kg/sq m kg/sq m Memoria l [facility] Coronary Coronary Problem Active [facility] artery artery [facility] - disease disease Memoria involving involving l chipewwa chipewwa [facility] coronary coronary ent artery of artery of Clin ics chipewwa chipewwa heart with heart with unstable unstable angina angina pectoris pectoris History of History of Problem Active [facility] cholecyste cholecyste Amalia kes - ctomy ctomy Memoria l [facility] Atrial Atrial Problem Active [facility] flutter, flutter, Lukes - unspecifie unspecifie Me moria d type d type l [facility] ent [facility] NSTEMI NSTEMI Problem Active [facility] (non-ST (non-ST [facility]ukes - elevated elevated Memori a myocardial myocardial l infarction infarction Ou tpati ) ) ent Clinics Allergies, Adverse Reactions, Alerts Allergy Allergy Status Severity Reaction(s) Onset Inactive Treating Comm ents Source Name Type Date Date Clinician iodine DA Active [facility] 07-28 [facility]: Region[facility] morphine DA Active [facility] 07-28 [facility] 00:[facility]: Region [facility] Benadryl Adverse Active Info Not [facility] Reaction [facility] ALL PAIN Adverse Active Swelling of [facility] NARCOTIC Reaction throat, [facility] CONTRAST Adverse Active Info Not [facility] DYE Reaction Available [facility] ent [facility] Amiodaro Adverse Active Info Not [facility] ne HCl Reaction Available [facility] Levaquin Adverse Active Info Not [facility] Medications Ordered Filled Start Stop Current Ordering Indication Dosage Frequency Signature Comments Components Source Medication Medication Date Date Medication? Clinician (SIG) Name Name Ranolazine Ranolazine Yes John [address] [facility] [address] ER ER 4-15 [facility] - 00:00: Memoria 00 [facility] ent [facility] Brilinta Brilinta 0 Yes John [address] 4-15 [facility] - 00:00: Memoria 00 [facility] ent [facility] Tradjenta Tradjenta Yes John [address] 5-14 [facility] - 00:00: Memoria 00 [facility] ent [facility] Clopidogrel Clopidogrel Yes John [address] Bisulfate Bisulfate [facility] Luke s - Memoria l [facility] ent Clinics Cranberry Cranberry Yes John not [facility] Extract Extract Perry defined Lukes - Memoria l [facility] Clinics Tresiba Tresiba Yes John [address] FlexTouch FlexTouch [place] Luke s - Memoria l [facility] ent Clinics Lactobacill Lactobacill Yes John not [facility] us us Perry defined Lukes - Memoria l [facility] ent Clinics Nitrostat Nitrostat Yes John as [facility] directed [facility] - Memoria l [facility] ent Clinics Senna S Senna S Yes John [address] [facility] [place] in the Lukes - evening as Memoria needed l [facility] ent [facility] Cyanocobala Cyanocobala Yes John [address] min min [facility] - Memoria l [facility] ent [facility] Thiamine Thiamine Yes John [address] HCl HCl Perry [facility]uchi [facility] l [facility] ent Clinics Lipitor Lipitor Yes John [address] [facility] [facility] l [facility] ent [facility] Aspir-Low Aspir-Low Yes John [address] - Memoria l [facility] ent Clinics Vitamin D-3 Vitamin D-3 Yes John as [facility] BD Pen BD Pen Yes John USE [facility] Needle Mini Needle Mini Perry DIRECTED Lukes - U/F U/F Memoria l [facility] ent [facility] Ferrous Ferrous Yes John TAKE 1 [facility] Sulfate Sulfate Perry TABLET BY Penny es - MOUTH Memoria TWICE A l DAY [facility] ent Clinics Bumetanide Bumetanide Yes John TAKE [address] [facility] [place] TABLET BY Lukes - MOUTH Memoria TWICE A l DAY [facility] ent Clinics Metoprolol Metoprolol Yes John [address] Tartrate Tartrate Perry with food L [facility] l [facility] ent [facility] Protonix Protonix Yes John [address] [facility] mixed with [facility]ukes - apple Memoria juice or l applesauce [facility] ent Clinics Atorvastati Atorvastati Yes John TAKE [address] [facility] n Calcium n Calcium Perry TABLET BY Lukes - MOUTH Memoria EVERY DAY l [facility] ent Clinics Folic Acid Folic Acid Yes John TAKE [address] [facility] [place] TABLET BY Lukes - MOUTH Memoria EVERY DAY l [facility] ent Clinics Calcitriol Calcitriol Yes John TAKE [address] [facility] [place] CAPSULE BY Lukes - MOUTH Memoria EVERY DAY l [facility] ent Clinics Brilinta Brilinta Yes John TAKE [facility] TABLET BY Lukes - MOUTH Memoria TWICE A l DAY [facility] ent [facility] Calcitriol Calcitriol 2019- No John [address] 10-14 [place] [facility] - 00:00 Memoria :00 [facility] ent Clinics Immunizations Ordered Filled Immunization Date Status Comments [facility] Immunization Name Name Amanda Patel 2018-12-[address] [facility] - 00:[facility]00 [facility] Outpatient Clinics Procedures This patient has no known procedures. Encounters Start End Encounter Admission Attending Care Care Encounter Source Date/Time Date/Time Type Type Clinicians Facility Department ID 2019-07-10 2019-07-10 [facility] [id number] [address] 14:25:00 14:25:00 t [facility] [employer] [facility] Medicine l Medicine Outpati ent Clinics 2019-06-28 2019-06-28 [facility] [id number] 10:34:00 10:34:00 t [employer] [facility] Medicine l Medicine Outpati ent Clinics 2019-06-17 2019-06-17 [facility] [id number] 15:21:00 15:21:00 [employer] [facility] l Medicine Outpati ent Clinics 2019 2019 [facility] [id number] 13:30:00 13:30:00 t [employer] [facility] Medicine l Medicine Outpati ent Clinics 2019-05-31 2019-05-31 [facility] [id number] 16:05:00 16:05:00 t [employer] [facility] Medicine l Medicine Outpati ent Clinics 2019-05-30 2019-05-30 [facility] [id number] 11:58:00 11:58:00 t [employer] [facility] Medicine l Medicine Outpati ent Clinics 2019-05-17 2019-05-17 [facility] [id number] 14:51:00 14:51:00 t [employer] [facility] Medicine l Medicine Outpati ent Clinics 2019-04-18 2019-04-18 [facility] [id number] 08:45:00 08:45:00 [employer] [facility] Medicine l Medicine Outpati ent Clinics 2019-04-11 2019-04-11 [facility] [id number] 08:26:00 08:26:[address] Luke s - Drive [facility] Medicine Medicine Outpati ent Clinics 2019-03-26 2019-03-26 [facility] [id number] 10:15:00 10:15:[address] Luke s - Drive [facility] l Medicine Outpati ent Clinics 2019-03-21 2019-03-21 [facility] [id number] 09:50:00 09:50:00 t Anderson [employer] Luke s - Drive [facility] Medicine Medicine Outpati ent Clinics 2019-03-18 2019-03-18 [facility] [id number] 13:29:00 13:29:00 t Anderson Anderson [employer] Reality LuGlokalise s - Drive [facility] Medicine Outpati ent Clinics 2019-02-11 2019-02-11 [facility] [id number] 13:30:00 13:30:00 t Anderson Anderson [employer] Reality LuGlokalise s - Drive [facility] Medicine Outpati ent Clinics 2019-01-23 2019-01-23 [facility] [id number] 10:15:00 10:15:00 t Anderson Anderson [employer] Reality Luke s - Drive [facility] Medicine Outpati ent Clinics 2019-01-21 2019-01-21 [facility] [id number] 13:25:00 13:25:00 t Anderson [employer] s - Drive [facility] Medicine Outpati ent Clinics 2018-12-24 2018-12-24 [facility] [id number] 14:34:00 14:34:00 t Anderson Anderson Wedding Reality LuGlokalise s - Drive [facility] Medicine Outpati ent Clinics 2018-12-21 2018-12-21 [facility] [id number] 14:44:00 14:44:00 t Anderson Anderson [employer] Reality LuGlokalise s - Drive [facility] Medicine Outpati ent Clinics 2018-12-19 2018-12-19 [facility] [id number] 17:03:00 17:03:00 t Anderson Anderson [employer] Reality LuGlokalise s - Drive [facility] Medicine Outpati ent Clinics 2018-12-03 2018-12-03 [facility] [id number] 14:00:00 14:00:00 t Anderson Anderson [employer] Reality Luke s - Drive [facility] Medicine l Medicine Outpati ent Clinics 2018-11-26 2018-11-26 [facility] [id number] 13:30:00 13:30:00 t Anderson Anderson [employer] s - Drive [facility] Medicine l Medicine Outpati ent Clinics 2018-10-16 2018-10-16 [facility] [id number] 11:15:00 11:15:00 t Specialty/U Amalia kes - Specialty rology Memori a /Urology Clinic l Clinic Outpati ent Clinics 2018-10-08 2018-10-08 [facility] [id number] 15:33:00 15:33:00 t Anderson 3FLOZ s - Drive [facility] Medicine l Medicine Outpati ent Clinics 2018-10-08 2018-10-08 [facility] [id number] 14:00:00 14:00:00 t Anderson 3FLOZ s - Drive [facility] Medicine l Medicine Outpati ent Clinics 2018-10-08 2018-10-08 [facility] [id number] 14:00:00 14:00:00 t Specialty/U Amalia kes - Specialty rology Memori a /Urology Clinic l Clinic Outpati ent Clinics 2018-09-17 2018-09-17 [facility] [id number] 10:32:00 10:32:00 t Anderson 3FLOZ s - Drive [facility] Medicine l Medicine Outpati ent Clinics 2018-09-06 2018-09-06 [facility] [id number] 13:30:00 13:30:00 t Anderson Anderson [employer] s - Drive [facility] Medicine l Medicine Outpati ent Clinics 2018-09-04 2018-09-04 [facility] [id number] 14:45:00 14:45:00 t Anderson Anderson [employer] s - Drive [facility] Medicine l Medicine Outpati ent Clinics 2018-08-07 2018-08-07 [facility] [id number] 08:25:00 08:25:00 t Anderson 3FLOZ s - Drive [facility] Medicine Outpati ent Clinics 2018-06-26 2018-06-26 [facility] [id number] 10:41:00 10:41:00 t Anderson 3FLO[employer] s Ark [facility] Medicine Outpati ent Clinics 2018-06-12 2018-06-12 [facility] [id number] 10:30:00 10:30:00 t Anderson 3FLOZ s - Wedding Reality [facility] Medicine Outpati ent Clinics 2018 2018 [facility] [id number] 11:54:00 11:54:00 t Anderson 3FLO[employer] s Ark [facility] Medicine Outpati ent Clinics 2018-03-14 2018-03-14 [facility] [id number] 15:00:00 15:00:00 t Smile s Ark [facility] Medicine Outpati ent Clinics 2018-02-21 2018-02-21 [facility] [id number] [address] 13:15:00 13:15:00 t Specialty/U Amalia kes - Specialty rology Memori a /Urology Clinic l Clinic Outpati ent Clinics 2018-02-21 2018-02-21 [facility] [id number] 09:57:00 09:57:00 t Anderson [employer] [facility] Medicine Outpati ent Clinics 2018-02-21 2018-02-21 [facility] [id number] 09:30:00 09:30:00 t Specialty/U Amalia kes - Specialty rology Memori a /Urology Clinic l Clinic Outpati ent Clinics 2018-02-21 2018-02-21 [facility] [id number] 08:32:00 08:32:00 t Smile s Ark [facility] Medicine Outpati ent Clinics 2017-12-06 2017-12-06 [facility] [id number] 14:30:00 14:30:00 t Bone Bone and Lukes - and Joint Joint [facility] a [facility] ent Clinics 2017-11-29 2017-11-29 [facility] [id number] 09:30:00 09:30:00 t Bone Bone and Lukes - and Joint Joint [facility] ent Clinics 2017-11-01 2017-11-01 [facility] [id number] 15:00:00 15:00:00 t Bone Bone and Lukes - and Joint Joint [facility] ent Clinics 2017-11-01 2017-11-01 [facility] [id number] 14:19:00 14:19:00 t Anderson Anderson [employer] Reality Luke s - Drive [facility] Outpati ent Clinics 2017-11-01 2017-11-01 Outpatient Annalisa Fang [id number] [facility] 14:02:00 14:02:00 Alex Johnson [facility] - DO [facility] Clinics 2017-09-06 2017-09-06 [facility] [id number] 10:30:00 10:30:00 t Anderson Anderson [employer] Luke s - Drive [facility] Outpati ent Clinics 2017-07-12 2017-07-12 [facility] [id number] 11:48:00 11:48:00 t Anderson Anderson [employer] Reality Luke s - Drive [facility] Outpati ent Clinics 2017-07-03 2017-07-03 [facility] [id number] 10:15:00 10:15:00 t Anderson Anderson [employer] Reality Luke s - Drive [facility] Outpati ent Clinics 2017-06-08 2017-06-08 [facility] [id number] 12:16:00 12:16:00 t Anderson Anderson [employer] Reality Luke s - Drive [facility] Outpati ent Clinics 2017-05-16 2017-05-16 [facility] [id number] 11:00:00 11:00:00 t Specialty/U Amalia kes - Specialty rology [facility] a /Urology Clinic l Clinic Outpati ent Clinics 2017-05-08 2017-05-08 [facility] [id number] 10:45:00 10:45:00 [facility] Clinics Results Test Description Test Time Test Comments Results Result Comments Source PLATELET AGGREGATION: DRUG EFFECT 2019-05-29 16:27:00 Test Item Value Reference Range Interpretation Comme nts ARACHADONIC ACID RESULT(BEAKER) (test 13 % 63-89 L code = 2138) PLATELET AGG DRUG INTERPRETATION Decreased response to arachidonic (BEAKER) (test code = 2408) acid suggests aspirin-like effect. PLATELET AGG DRUG INTERPRETATION Decreased aggregation with ADP (BEAKER) (test code = 445220) which indicates platelet dysfunction that may be due to medication effect, uremia, or other platelet function disorders. Clinical correlation is required. [id number] (BEAKER) (test Talia Villarreal MD ([facility] onic code = 2621) signature) PLATELET COUNT AGG (BEAKER) (test code 184 K/CU MM 150-450 = 2656) PLATELET RICH PLASMA(BEAKER) (test 243 k/cu mm 200-300 code = 2134) Platelet function studies by aggregation methodology on samples with platelet count <75,000/CU MMare unreliable; platelet function assessment should not be based on a single test.Reed Cleaner ID - [id number] [id number] 13:37:00 Test Item Value Reference Range Interpretation Comments POC-GLUCOSE METER 298 mg/dL 70-110 H : Notified RN/: (CRISTY) (test code = TESTED AT [facility] 6720 1538) [facility], [address]: Reed Cleaner/Techni rebeca ID = [id number] for BE LL, BEAULA POCT-GLUCOSE [id number] 07:54:00 Test Item Value Reference Range Interpretation Comments POC-GLUCOSE METER 270 mg/dL 70-110 H : TESTED A T [facility] 6720 (BEAKER) (test code = [facility], 1538) [address]: Reed Cleaner/Techni rebeca ID = [id number] for BE LL, BEAULA CALCIUM, [id number] 05:34:00 Test Item Value Reference Range Interpretation Comments CALCIUM IONIZED (BEAKER) (test 1.16 mmol/L 1.12-1.27 code = 698) PH, BLOOD (BEAKER) (test code = 7.40 1810) URIC [id number] 05:20:00 Test Item Value Reference Range Interpretation Comments URIC ACID (BEAKER) (test code = 9.0 mg/dL 2.6-7.2 H 773) Reed Cleaner ID - MELI [id number] 05:20:00 Test Item Value Reference Range Interpretation Comments MAGNESIUM (BEAKER) (test code = 2.1 mg/dL 1.6-2.6 627) Reed Cleaner ID - MELI [id number] 05:20:00 Test Item Value Reference Range Interpretation Comments PHOSPHORUS (BEAKER) (test code = 3.7 mg/dL 2.3-4.7 604) Reed Cleaner ID - MELI MCREATINE KINASE (CK)2019-05-29 05:20:00 Test Item Value Reference Range Interpretation Comments CREATINE KINASE TOTAL (BEAKER) (test 94 U/L 29-200 code = 380) Reed Cleaner ID - MELI MB-TYPE NATRIURETIC FACTOR (BNP)2019-05-29 05:20:00 Test Item Value Reference Range Interpretation Comments B-TYPE NATRIURETIC PEPTIDE 1228 pg/mL 0-100 H (BEAKER) (test code = 700) Reed Cleaner ID - MELI MBASIC METABOLIC [id number] 05:20:00 Test Item Value Reference Range Interpretation Comments SODIUM (BEAKER) 135 meq/L 136-145 L (test code = 381) POTASSIUM (BEAKER) 3.8 meq/L 3.5-5.1 (test code = 379) CHLORIDE (BEAKER) 98 meq/L 98-107 (test code = 382) CO2 (BEAKER) (test 27 meq/L 22-29 code = 355) BLOOD UREA NITROGEN 73 mg/dL 7-21 H (BEAKER) (test code = 354) CREATININE (BEAKER) 3.31 mg/dL 0.57-1.25 H (test code = 358) GLUCOSE RANDOM 269 mg/dL 70-105 H (BEAKER) (test code = 652) CALCIUM (BEAKER) 9.1 mg/dL 8.4-10.2 (test code = 697) EGFR (BEAKER) (test 13 mL/min/1.73 ESTIMA ELVA GFR IS code = 1092) sq m NOT ACCURATE CREATININE CLEARANCE IN PREDICTING GLOMERULAR FILTRATION RATE . ESTIMATED GFR I S NOT APPLICABLE FOR DIALYSIS PATIEN TS. Reed Cleaner ID - MELI MCBC W/PLT COUNT & AUTO [id number] 04:59:00 Test Item Value Reference Range Interpretation Comments WHITE BLOOD CELL COUNT (BEAKER) 6.4 K/ L 3.5-10.5 (test code = 775) RED BLOOD CELL COUNT (BEAKER) 3.26 M/ L 3.93-5.22 L (test code = 761) HEMOGLOBIN (BEAKER) (test code = 10.1 GM/DL 11.2-15.7 L 410) HEMATOCRIT (BEAKER) (test code = 30.3 % 34.1-44.9 L 411) MEAN CORPUSCULAR VOLUME (BEAKER) 92.9 fL 79.4-94.8 (test code = 753) MEAN CORPUSCULAR HEMOGLOBIN 31.0 pg 25.6-32.2 (BEAKER) (test code = 751) MEAN CORPUSCULAR HEMOGLOBIN CONC 33.3 GM/DL 32.2-35.5 (BEAKER) (test code = 752) RED CELL DISTRIBUTION WIDTH 13.1 % 11.7-14.4 (BEAKER) (test code = 412) PLATELET COUNT (BEAKER) (test 183 K/CU MM 150-450 code = 756) MEAN PLATELET VOLUME (BEAKER) 9.9 fL 9.4-12.3 (test code = 754) NUCLEATED RED BLOOD CELLS 0 /100 WBC 0-0 (BEAKER) (test code = 413) NEUTROPHILS RELATIVE PERCENT 70 % (BEAKER) (test code = 429) LYMPHOCYTES RELATIVE PERCENT 19 % (BEAKER) (test code = 430) MONOCYTES RELATIVE PERCENT 9 % (BEAKER) (test code = 431) EOSINOPHILS RELATIVE PERCENT 1 % (BEAKER) (test code = 432) BASOPHILS RELATIVE PERCENT 1 % (BEAKER) (test code = 437) NEUTROPHILS ABSOLUTE COUNT 4.47 K/ L 1.56-6.13 (BEAKER) (test code = 670) LYMPHOCYTES ABSOLUTE COUNT 1.20 K/ L 1.18-3.74 (BEAKER) (test code = 414) MONOCYTES ABSOLUTE COUNT (BEAKER) 0.59 K/ L 0.24-0.36 H (test code = 415) EOSINOPHILS ABSOLUTE COUNT 0.08 K/ L 0.04-0.36 (BEAKER) (test code = 416) BASOPHILS ABSOLUTE COUNT (BEAKER) 0.04 K/ L 0.01-0.08 (test code = 417) IMMATURE GRANULOCYTES-RELATIVE 0 % 0-1 PERCENT (BEAKER) (test code = 2801) CBC (HEMOGRAM ONLY)2019-05-29 04:59:00 Test Item Value Reference Range Interpretation Comments WHITE BLOOD CELL COUNT (BEAKER) 6.4 K/ L 3.5-10.5 (test code = 775) RED BLOOD CELL COUNT (BEAKER) 3.26 M/ L 3.93-5.22 L (test code = 761) HEMOGLOBIN (BEAKER) (test code = 10.1 GM/DL 11.2-15.7 L 410) HEMATOCRIT (BEAKER) (test code = 30.3 % 34.1-44.9 L 411) MEAN CORPUSCULAR VOLUME (BEAKER) 92.9 fL 79.4-94.8 (test code = 753) MEAN CORPUSCULAR HEMOGLOBIN 31.0 pg 25.6-32.2 (BEAKER) (test code = 751) MEAN CORPUSCULAR HEMOGLOBIN CONC 33.3 GM/DL 32.2-35.5 (BEAKER) (test code = 752) RED CELL DISTRIBUTION WIDTH 13.1 % 11.7-14.4 (BEAKER) (test code = 412) PLATELET COUNT (BEAKER) (test 183 K/CU MM 150-450 code = 756) MEAN PLATELET VOLUME (BEAKER) 9.9 fL 9.4-12.3 (test code = 754) NUCLEATED RED BLOOD CELLS 0 /100 WBC 0-0 (BEAKER) (test code = 413) U/S, RENAL, [id number] 03:58:00Reason for exam:->AKIShould this be performed at [...] MDReport Verified Date/Time: 05/29/2019 03:58:20 POCT- GLUCOSE [id number] 21:44:00 Test Item Value Reference Range Interpretation Comments POC-GLUCOSE METER 230 mg/dL 70-110 H : [facility] (BEAKER) (test code = [facility], 1538) [address]: Reed Cleaner/Techni rebeca ID = [id number] for DARIAN SWEENEY [id number] 20:46:00 Test Item Value Reference Range Interpretation Comments ACTIVATED CLOTTING TIME 136 sec : 74 -137 seconds, (BEAKER) (test code = Baseli ne: TESTED AT 441) [facility], 770 30: Reed Cleaner/Techni rebeca ID = [id number] for DARIAN SWEENEY URINALYSIS W/ [id number] 18:58:00 Test Item Value Reference Range Interpretation Comments COLOR (BEAKER) (test code = 470) Light Yellow CLARITY (BEAKER) (test code = Clear 469) SPECIFIC GRAVITY UA (BEAKER) 1.012 1.001-1.035 (test code = 468) PH UA (BEAKER) (test code = 467) 6.0 5.0-8.0 PROTEIN UA (BEAKER) (test code = 20 mg/dL Negative A 464) GLUCOSE UA (BEAKER) (test code = 150 mg/dL Negative A 365) KETONES UA (BEAKER) (test code = Negative Negative 371) BILIRUBIN UA (BEAKER) (test code Negative Negative = 462) BLOOD UA (BEAKER) (test code = Trace Negative A 461) NITRITE UA (BEAKER) (test code = Negative Negative 465) LEUKOCYTE ESTERASE UA (BEAKER) Negative Negative (test code = 466) UROBILINOGEN UA (BEAKER) (test 0.2 mg/dL 0.2-1.0 code = 463) RBC UA (BEAKER) (test code = 1 /HPF 519) WBC UA (BEAKER) (test code = < /HPF 520) BACTERIA (BEAKER) (test code = Many 517) SOURCE(BEAKER) (test code = 2795) Reed Cleaner ID - [auto]Reed Cleaner ID - [id number] 18:35:00 Test Item Value Reference Range Interpretation Comments ACTIVATED CLOTTING TIME 164 sec : 74 -137 seconds, (BEAKER) (test code = Baseli ne: TESTED AT 441) [facility] [address] [facility], 770 30: Reed Cleaner/Techni rebeca ID = [id number] for SHONDA HENDRICKS BASIC METABOLIC [id number] 16:41:00 Test Item Value Reference Range Interpretation Comments SODIUM (BEAKER) 136 meq/L 136-145 (test code = 381) POTASSIUM (BEAKER) 3.7 meq/L 3.5-5.1 (test code = 379) CHLORIDE (BEAKER) 97 meq/L 98-107 L (test code = 382) CO2 (BEAKER) (test 32 meq/L 22-29 H code = 355) BLOOD UREA NITROGEN 74 mg/dL 7-21 H (BEAKER) (test code = 354) CREATININE (BEAKER) 3.34 mg/dL 0.57-1.25 H (test code = 358) GLUCOSE RANDOM 142 mg/dL 70-105 H (BEAKER) (test code = 652) CALCIUM (BEAKER) 10.0 mg/dL 8.4-10.2 (test code = 697) EGFR (BEAKER) (test 13 mL/min/1.73 ESTIMA ELVA GFR IS code = 1092) sq m NOT ACCURATE CREATININE CLEARANCE IN PREDICTING GLOMERULAR FILTRATION RATE . ESTIMATED GFR I S NOT APPLICABLE FOR DIALYSIS PATIEN TS. Reed Cleaner ID - [id number] 16:33:00 Test Item Value Reference Range Interpretation Comments ACTIVATED CLOTTING TIME 202 sec : 74 -137 seconds, (BEAKER) (test code = Baseli ne: TESTED AT 441) [facility] [address] [facility], 770 30: Reed Cleaner/Techni rebeca ID = [id number] for SHONDA HENDRICKS CBC (HEMOGRAM ONLY)2019-05-28 16:25:00 Test Item Value Reference Range Interpretation Comments WHITE BLOOD CELL COUNT (BEAKER) 8.2 K/ L 3.5-10.5 (test code = 775) RED BLOOD CELL COUNT (BEAKER) 3.73 M/ L 3.93-5.22 L (test code = 761) HEMOGLOBIN (BEAKER) (test code = 11.5 GM/DL 11.2-15.7 410) HEMATOCRIT (BEAKER) (test code = 34.2 % 34.1-44.9 411) MEAN CORPUSCULAR VOLUME (BEAKER) 91.7 fL 79.4-94.8 (test code = 753) MEAN CORPUSCULAR HEMOGLOBIN 30.8 pg 25.6-32.2 (BEAKER) (test code = 751) MEAN CORPUSCULAR HEMOGLOBIN CONC 33.6 GM/DL 32.2-35.5 (BEAKER) (test code = 752) RED CELL DISTRIBUTION WIDTH 13.1 % 11.7-14.4 (BEAKER) (test code = 412) PLATELET COUNT (BEAKER) (test 209 K/CU MM 150-450 code = 756) MEAN PLATELET VOLUME (BEAKER) 9.6 fL 9.4-12.3 (test code = 754) NUCLEATED RED BLOOD CELLS 0 /100 WBC 0-0 (BEAKER) (test code = 413) [id number] 14:53:00 Test Item Value Reference Range Interpretation Comments ACTIVATED CLOTTING TIME 246 sec : 74 -137 seconds, (BEAKER) (test code = Baseli ne: TESTED AT 441) [address], [facility] 30: Reed Cleaner/Techni rebeca ID = [id number] for Riley Cuevas [id number] 14:07:00 Test Item Value Reference Range Interpretation Comments ACTIVATED CLOTTING TIME 213 sec : 74 -137 seconds, (BEAKER) (test code = Baseli ne: TESTED AT 441) [address], [facility] 30: Reed Cleaner/Techni rebeca ID = [id number] for Riley Cuevas [id number] 14:07:00 Test Item Value Reference Range Interpretation Comments ACTIVATED CLOTTING TIME 109 sec : 74 -137 seconds, (BEAKER) (test code = Baseli ne: TESTED AT 441) [facility] [address] [facility], 770 30: Reed Cleaner/Techni rebeca ID = [id number] for Riley Cuevas CREATININE, RANDOM [id number] 13:05:00 Test Item Value Reference Range Interpretation Comments CREATININE URINE (BEAKER) (test 65.1 mg/dL code = 375) Reference Range: No NormalsOperator ID - BSPROTEIN, RANDOM [id number] 13:05:00 Test Item Value Reference Range Interpretation Comments PROTEIN, URINE (BEAKER) (test code = 10 mg/dL 0-14 1569) Reed Cleaner ID - BSSODIUM, RANDOM [id number] 13:05:00 Test Item Value Reference Range Interpretation Comments SODIUM URINE (BEAKER) (test code = 35 meq/L 243) Reference Range: No NormalsOperator ID - BSPOCT-GLUCOSE [id number] 12:14:00 Test Item Value Reference Range Interpretation Comments POC-GLUCOSE METER 313 mg/dL 70-110 H : TESTED A T [facility] 6720 [facility] (test code = [facility], 1538) [address]: Reed Cleaner/Techni reebca ID = [id number] for SHONDA MORA POCT-GLUCOSE [id number] 09:43:00 Test Item Value Reference Range Interpretation Comments POC-GLUCOSE METER 272 mg/dL 70-110 H : Notified RN/MD: [facility] (test code = TESTED AT [facility] 67 1538) [facility], [address]: Reed Cleaner/Techni rebeca ID = [id number] for LIZ PRIEST [id number] 09:00:00 Test Item Value Reference Range Interpretation Comments PARTIAL THROMBOPLASTIN TIME 67.2 seconds 22.5-36.0 H (BEAKER) (test code = 760) BASIC METABOLIC [id number] 07:07:00 Test Item Value Reference Range Interpretation Comments SODIUM (BEAKER) 135 meq/L 136-145 L (test code = 381) POTASSIUM (BEAKER) 3.6 meq/L 3.5-5.1 (test code = 379) CHLORIDE (BEAKER) 96 meq/L 98-107 L (test code = 382) CO2 (BEAKER) (test 28 meq/L 22-29 code = 355) BLOOD UREA NITROGEN 77 mg/dL 7-21 H (BEAKER) (test code = 354) CREATININE (BEAKER) 3.56 mg/dL 0.57-1.25 H (test code = 358) GLUCOSE RANDOM 284 mg/dL 70-105 H (BEAKER) (test code = 652) CALCIUM (BEAKER) 8.8 mg/dL 8.4-10.2 (test code = 697) EGFR (BEAKER) (test 12 mL/min/1.73 ESTIMA ELVA GFR IS code = 1092) sq m NOT ACCURATE CREATININE CLEARANCE IN PREDICTING GLOMERULAR FILTRATION RATE . ESTIMATED GFR I S NOT APPLICABLE FOR DIALYSIS PATIEN TS. Reed Cleaner ID - [id number] 06:56:00 Test Item Value Reference Range Interpretation Comments PARTIAL THROMBOPLASTIN TIME > seconds 22.5-36.0 HH (BEAKER) (test code = 760) CBC (HEMOGRAM ONLY)2019-05-28 06:51:00 Test Item Value Reference Range Interpretation Comments WHITE BLOOD CELL COUNT (BEAKER) 6.6 K/ L 3.5-10.5 (test code = 775) RED BLOOD CELL COUNT (BEAKER) 3.55 M/ L 3.93-5.22 L (test code = 761) HEMOGLOBIN (BEAKER) (test code = 10.9 GM/DL 11.2-15.7 L 410) HEMATOCRIT (BEAKER) (test code = 32.9 % 34.1-44.9 L 411) MEAN CORPUSCULAR VOLUME (BEAKER) 92.7 fL 79.4-94.8 (test code = 753) MEAN CORPUSCULAR HEMOGLOBIN 30.7 pg 25.6-32.2 (BEAKER) (test code = 751) MEAN CORPUSCULAR HEMOGLOBIN CONC 33.1 GM/DL 32.2-35.5 (BEAKER) (test code = 752) RED CELL DISTRIBUTION WIDTH 13.1 % 11.7-14.4 (BEAKER) (test code = 412) PLATELET COUNT (BEAKER) (test 187 K/CU MM 150-450 code = 756) MEAN PLATELET VOLUME (BEAKER) 10.2 fL 9.4-12.3 (test code = 754) NUCLEATED RED BLOOD CELLS 0 /100 WBC 0-0 (BEAKER) (test code = 413) CBC W/PLT COUNT & AUTO [id number] 06:51:00 Test Item Value Reference Range Interpretation Comments WHITE BLOOD CELL COUNT (BEAKER) 6.6 K/ L 3.5-10.5 (test code = 775) RED BLOOD CELL COUNT (BEAKER) 3.55 M/ L 3.93-5.22 L (test code = 761) HEMOGLOBIN (BEAKER) (test code = 10.9 GM/DL 11.2-15.7 L 410) HEMATOCRIT (BEAKER) (test code = 32.9 % 34.1-44.9 L 411) MEAN CORPUSCULAR VOLUME (BEAKER) 92.7 fL 79.4-94.8 (test code = 753) MEAN CORPUSCULAR HEMOGLOBIN 30.7 pg 25.6-32.2 (BEAKER) (test code = 751) MEAN CORPUSCULAR HEMOGLOBIN CONC 33.1 GM/DL 32.2-35.5 (BEAKER) (test code = 752) RED CELL DISTRIBUTION WIDTH 13.1 % 11.7-14.4 (BEAKER) (test code = 412) PLATELET COUNT (BEAKER) (test 187 K/CU MM 150-450 code = 756) MEAN PLATELET VOLUME (BEAKER) 10.2 fL 9.4-12.3 (test code = 754) NUCLEATED RED BLOOD CELLS 0 /100 WBC 0-0 (BEAKER) (test code = 413) NEUTROPHILS RELATIVE PERCENT 61 % (BEAKER) (test code = 429) LYMPHOCYTES RELATIVE PERCENT 28 % (BEAKER) (test code = 430) MONOCYTES RELATIVE PERCENT 8 % (BEAKER) (test code = 431) EOSINOPHILS RELATIVE PERCENT 2 % (BEAKER) (test code = 432) BASOPHILS RELATIVE PERCENT 1 % (BEAKER) (test code = 437) NEUTROPHILS ABSOLUTE COUNT 4.05 K/ L 1.56-6.13 (BEAKER) (test code = 670) LYMPHOCYTES ABSOLUTE COUNT 1.87 K/ L 1.18-3.74 (BEAKER) (test code = 414) MONOCYTES ABSOLUTE COUNT (BEAKER) 0.53 K/ L 0.24-0.36 H (test code = 415) EOSINOPHILS ABSOLUTE COUNT 0.10 K/ L 0.04-0.36 (BEAKER) (test code = 416) BASOPHILS ABSOLUTE COUNT (BEAKER) 0.04 K/ L 0.01-0.08 (test code = 417) IMMATURE GRANULOCYTES-RELATIVE 0 % 0-1 PERCENT (BEAKER) (test code = 2801) TROPONIN [id number] 05:00:00 Test Item Value Reference Range Interpretation Comments TROPONIN I (BEAKER) (test code = 1.06 ng/mL 0.00-0.03 397) Troponin I (TnI) levels must be interpreted [...] failure, acidosis, acute neurological disease, and persistent tachyarrhythmia.Reed Cleaner ID - BSTROPONIN [id number] 00:21:00 Test Item Value Reference Range Interpretation Comments TROPONIN I (BEAKER) (test code = 0.29 ng/mL 0.00-0.03 397) Troponin I (TnI) levels must be interpreted [...] failure, acidosis, acute neurological disease, and persistent tachyarrhythmia.Reed Cleaner ID - BSBASIC METABOLIC PANEL 2019-05-28 00:18:00 Test Item Value Reference Range Interpretation Comments SODIUM (BEAKER) 133 meq/L 136-145 L (test code = 381) POTASSIUM (BEAKER) 4.1 meq/L 3.5-5.1 Specimen slightly (test code = 379) hemolyzed CHLORIDE (BEAKER) 93 meq/L 98-107 L (test code = 382) CO2 (BEAKER) (test 25 meq/L 22-29 code = 355) BLOOD UREA NITROGEN 83 mg/dL 7-21 H (BEAKER) (test code = 354) CREATININE (BEAKER) 3.87 mg/dL 0.57-1.25 H Specimen slightly (test code = 358) hemolyzed GLUCOSE RANDOM 305 mg/dL 70-105 H (BEAKER) (test code = 652) CALCIUM (BEAKER) 9.5 mg/dL 8.4-10.2 (test code = 697) EGFR (BEAKER) (test 11 mL/min/1.73 ESTIMA ELVA GFR IS code = 1092) sq m NOT ACCURATE CREATININE CLEARANCE IN PREDICTING GLOMERULAR FILTRATION RATE . ESTIMATED GFR I S NOT APPLICABLE FOR DIALYSIS PATIEN TS. Reed Cleaner ID - BSB-TYPE NATRIURETIC FACTOR (BNP)2019-05-28 00:13:00 Test Item Value Reference Range Interpretation Comments B-TYPE NATRIURETIC PEPTIDE (BEAKER) 416 pg/mL 0-100 H (test code = 700) Reed Cleaner ID - [id number] 23:58:00 Test Item Value Reference Range Interpretation Comments PARTIAL THROMBOPLASTIN TIME 24.1 seconds 22.5-36.0 (BEAKER) (test code = 760) 6 hours after starting heparin infusion and as indicated per sliding scale [id number] 23:58:00 Test Item Value Reference Range Interpretation Comments PROTIME (BEAKER) (test code = 13.3 seconds 11.9-14.2 759) INR (BEAKER) (test code = 370) 1.0 <=5.9 PARTIAL THROMBOPLASTIN TIME 25.2 seconds 22.5-36.0 (BEAKER) (test code = 760) Effective 07/18/2018: PT Reference Range ChangeNew: 11.9-14.2 Previous: 11.7- 14.7RECOMMENDED COUMADIN/WARFARIN INR THERAPY RANGESSTANDARD DOSE: 2.0-3.0 Includes: PROPHYLAXIS for venous thrombosis, systemic embolization; TREATMENT for venous thrombosis and/or pulmonary embolus.HIGH RISK: Target INR is2.5-3.5 for patients wiht mechanical heart valves.CBC W/PLT COUNT & AUTO [id number] 23:50:00 Test Item Value Reference Range Interpretation Comments WHITE BLOOD CELL COUNT (BEAKER) 7.5 K/ L 3.5-10.5 (test code = 775) RED BLOOD CELL COUNT (BEAKER) 3.99 M/ L 3.93-5.22 (test code = 761) HEMOGLOBIN (BEAKER) (test code = 12.2 GM/DL 11.2-15.7 410) HEMATOCRIT (BEAKER) (test code = 37.0 % 34.1-44.9 411) MEAN CORPUSCULAR VOLUME (BEAKER) 92.7 fL 79.4-94.8 (test code = 753) MEAN CORPUSCULAR HEMOGLOBIN 30.6 pg 25.6-32.2 (BEAKER) (test code = 751) MEAN CORPUSCULAR HEMOGLOBIN CONC 33.0 GM/DL 32.2-35.5 (BEAKER) (test code = 752) RED CELL DISTRIBUTION WIDTH 13.0 % 11.7-14.4 (BEAKER) (test code = 412) PLATELET COUNT (BEAKER) (test 206 K/CU MM 150-450 code = 756) MEAN PLATELET VOLUME (BEAKER) 9.9 fL 9.4-12.3 (test code = 754) NUCLEATED RED BLOOD CELLS 0 /100 WBC 0-0 (BEAKER) (test code = 413) NEUTROPHILS RELATIVE PERCENT 68 % (BEAKER) (test code = 429) LYMPHOCYTES RELATIVE PERCENT 22 % (BEAKER) (test code = 430) MONOCYTES RELATIVE PERCENT 9 % (BEAKER) (test code = 431) EOSINOPHILS RELATIVE PERCENT 1 % (BEAKER) (test code = 432) BASOPHILS RELATIVE PERCENT 1 % (BEAKER) (test code = 437) NEUTROPHILS ABSOLUTE COUNT 5.11 K/ L 1.56-6.13 (BEAKER) (test code = 670) LYMPHOCYTES ABSOLUTE COUNT 1.64 K/ L 1.18-3.74 (BEAKER) (test code = 414) MONOCYTES ABSOLUTE COUNT (BEAKER) 0.64 K/ L 0.24-0.36 H (test code = 415) EOSINOPHILS ABSOLUTE COUNT 0.08 K/ L 0.04-0.36 (BEAKER) (test code = 416) BASOPHILS ABSOLUTE COUNT (BEAKER) 0.04 K/ L 0.01-0.08 (test code = 417) IMMATURE GRANULOCYTES-RELATIVE 0 % 0-1 PERCENT (BEAKER) (test code = 2801) PLATELET [id number] 23:50:00 Test Item Value Reference Range Interpretation Comments PLATELET COUNT (BEAKER) (test 209 K/CU MM 150-450 code = 756) Reed Cleaner ID - [id number], CHEST, 1 VIEW, NON [id number] 23:36:00Reason for exam:->CHEST PAIN, dyspneaShould this be [...] Fry MDReport Verified Date/Time: 05/27/2019 23:36:18 POCT-GLUCOSE [id number] 11:53:00 Test Item Value Reference Range Interpretation Comments POC-GLUCOSE METER 309 mg/dL 70-110 H : TESTED A T [facility] 6720 (BEAKER) (test code = [facility], 1538) [address]: Reed Cleaner/Techni rebeca ID = [id number] for WHATLEYNOVA ABRAHAM POCT-GLUCOSE [id number] 08:34:00 Test Item Value Reference Range Interpretation Comments POC-GLUCOSE METER 209 mg/dL 70-110 H : TESTED A T [facility] 6720 (BEAKER) (test code = [facility], 1538) [address]: Reed Cleaner/Techni rebeca ID = [id number] for NOVA PERSAUD COMPREHENSIVE METABOLIC [id number] 07:27:00 Test Item Value Reference Range Interpretation Comments TOTAL PROTEIN 6.3 gm/dL 6.0-8.3 Specimen sligh tly (BEAKER) (test code = hemoly zed 770) ALBUMIN (BEAKER) 3.4 g/dL 3.5-5.0 L Specimen sl ightly (test code = 1145) hemolyzed ALKALINE PHOSPHATASE 52 U/L 40-150 (BEAKER) (test code = 346) BILIRUBIN TOTAL 0.4 mg/dL 0.2-1.2 Specimen sli ghtly (BEAKER) (test code = hemoly zed 377) SODIUM (BEAKER) (test 140 meq/L 136-145 code = 381) POTASSIUM (BEAKER) 4.1 meq/L 3.5-5.1 Specimen slightly (test code = 379) hemolyzed CHLORIDE (BEAKER) 102 meq/L 98-107 (test code = 382) CO2 (BEAKER) (test 25 meq/L 22-29 code = 355) BLOOD UREA NITROGEN 49 mg/dL 7-21 H (BEAKER) (test code = 354) CREATININE (BEAKER) 2.86 mg/dL 0.57-1.25 H Specimen slightly (test code = 358) hemolyzed GLUCOSE RANDOM 164 mg/dL 70-105 H (BEAKER) (test code = 652) CALCIUM (BEAKER) 9.0 mg/dL 8.4-10.2 (test code = 697) AST (SGOT) (BEAKER) 27 U/L 5-34 Specimen slightly (test code = 353) hemolyzed ALT (SGPT) (BEAKER) 14 U/L 6-55 Specimen slightly (test code = 347) hemolyzed EGFR (BEAKER) (test 16 mL/min/1.73 ESTIMA ELVA GFR IS code = 1092) sq m NOT ACCURATE CREATININE CLEARANCE IN PREDICTING GLOMERULAR FILTRATION RATE . ESTIMATED GFR I S NOT APPLICABLE FOR DIALYSIS PATIEN TS. Reed Cleaner ID - PIAYA LCBC W/PLT COUNT & AUTO [id number] 03:51:00 Test Item Value Reference Range Interpretation Comments WHITE BLOOD CELL COUNT (BEAKER) 7.3 K/ L 3.5-10.5 (test code = 775) RED BLOOD CELL COUNT (BEAKER) 3.79 M/ L 3.93-5.22 L (test code = 761) HEMOGLOBIN (BEAKER) (test code = 11.7 GM/DL 11.2-15.7 410) HEMATOCRIT (BEAKER) (test code = 36.0 % 34.1-44.9 411) MEAN CORPUSCULAR VOLUME (BEAKER) 95.0 fL 79.4-94.8 H (test code = 753) MEAN CORPUSCULAR HEMOGLOBIN 30.9 pg 25.6-32.2 (BEAKER) (test code = 751) MEAN CORPUSCULAR HEMOGLOBIN CONC 32.5 GM/DL 32.2-35.5 (BEAKER) (test code = 752) RED CELL DISTRIBUTION WIDTH 13.0 % 11.7-14.4 (BEAKER) (test code = 412) PLATELET COUNT (BEAKER) (test 202 K/CU MM 150-450 code = 756) MEAN PLATELET VOLUME (BEAKER) 10.3 fL 9.4-12.3 (test code = 754) NUCLEATED RED BLOOD CELLS 0 /100 WBC 0-0 (BEAKER) (test code = 413) NEUTROPHILS RELATIVE PERCENT 65 % (BEAKER) (test code = 429) LYMPHOCYTES RELATIVE PERCENT 23 % (BEAKER) (test code = 430) MONOCYTES RELATIVE PERCENT 9 % (BEAKER) (test code = 431) EOSINOPHILS RELATIVE PERCENT 2 % (BEAKER) (test code = 432) BASOPHILS RELATIVE PERCENT 1 % (BEAKER) (test code = 437) NEUTROPHILS ABSOLUTE COUNT 4.71 K/ L 1.56-6.13 (BEAKER) (test code = 670) LYMPHOCYTES ABSOLUTE COUNT 1.68 K/ L 1.18-3.74 (BEAKER) (test code = 414) MONOCYTES ABSOLUTE COUNT (BEAKER) 0.67 K/ L 0.24-0.36 H (test code = 415) EOSINOPHILS ABSOLUTE COUNT 0.12 K/ L 0.04-0.36 (BEAKER) (test code = 416) BASOPHILS ABSOLUTE COUNT (BEAKER) 0.05 K/ L 0.01-0.08 (test code = 417) IMMATURE GRANULOCYTES-RELATIVE 0 % 0-1 PERCENT (BEAKER) (test code = 2801) POCT-GLUCOSE [id number] 22:09:00 Test Item Value Reference Range Interpretation Comments POC-GLUCOSE METER 172 mg/dL 70-110 H : TESTED A T [facility] 6720 (BEAKER) (test code = [facility], 153) [address]: Reed Cleaner/Techni rebeca ID = [id number] for OC ULYSSES HASSANANA POCT-GLUCOSE [id number] 17:30:00 Test Item Value Reference Range Interpretation Comments POC-GLUCOSE METER 284 mg/dL 70-110 H : TESTED A T [facility] 6720 (BEAKER) (test code = [facility], 153) [address]: Reed Cleaner/Techni rebeca ID = [id number] for NOVA PERSAUD BASIC METABOLIC [id number] 16:26:00 Test Item Value Reference Range Interpretation Comments SODIUM (BEAKER) 140 meq/L 136-145 (test code = 381) POTASSIUM (BEAKER) 4.4 meq/L 3.5-5.1 Specimen slightly (test code = 379) hemolyzed CHLORIDE (BEAKER) 104 meq/L 98-107 (test code = 382) CO2 (BEAKER) (test 27 meq/L 22-29 code = 355) BLOOD UREA NITROGEN 47 mg/dL 7-21 H (BEAKER) (test code = 354) CREATININE (BEAKER) 2.78 mg/dL 0.57-1.25 H Specimen slightly (test code = 358) hemolyzed GLUCOSE RANDOM 237 mg/dL 70-105 H (BEAKER) (test code = 652) CALCIUM (BEAKER) 9.1 mg/dL 8.4-10.2 (test code = 697) EGFR (BEAKER) (test 16 mL/min/1.73 ESTIMA ELVA GFR IS code = 1092) sq m NOT ACCURATE CREATININE CLEARANCE IN PREDICTING GLOMERULAR FILTRATION RATE . ESTIMATED GFR I S NOT APPLICABLE FOR DIALYSIS PATIEN TS. Reed Cleaner ID - AAHAMIDPOCT-GLUCOSE [id number] 16:16:00 Test Item Value Reference Range Interpretation Comments POC-GLUCOSE METER 233 mg/dL 70-110 H : TESTED A T [facility] 6720 (BEAKER) (test code = [facility], 1538) [address]: Reed Cleaner/Techni rebeca ID = [id number] for NOVA PERSAUD CBC (HEMOGRAM ONLY)2019-03-22 16:08:00 Test Item Value Reference Range Interpretation Comments WHITE BLOOD CELL COUNT (BEAKER) 7.0 K/ L 3.5-10.5 (test code = 775) RED BLOOD CELL COUNT (BEAKER) 3.90 M/ L 3.93-5.22 L (test code = 761) HEMOGLOBIN (BEAKER) (test code = 12.1 GM/DL 11.2-15.7 410) HEMATOCRIT (BEAKER) (test code = 36.9 % 34.1-44.9 411) MEAN CORPUSCULAR VOLUME (BEAKER) 94.6 fL 79.4-94.8 (test code = 753) MEAN CORPUSCULAR HEMOGLOBIN 31.0 pg 25.6-32.2 (BEAKER) (test code = 751) MEAN CORPUSCULAR HEMOGLOBIN CONC 32.8 GM/DL 32.2-35.5 (BEAKER) (test code = 752) RED CELL DISTRIBUTION WIDTH 13.1 % 11.7-14.4 (BEAKER) (test code = 412) PLATELET COUNT (BEAKER) (test 198 K/CU MM 150-450 code = 756) MEAN PLATELET VOLUME (BEAKER) 10.3 fL 9.4-12.3 (test code = 754) NUCLEATED RED BLOOD CELLS 0 /100 WBC 0-0 (BEAKER) (test code = 413) [id number] 11:06:00 Test Item Value Reference Range Interpretation Comments ACTIVATED CLOTTING TIME 263 sec Refe rence Range: (BEAKER) (test code = 74-137 seconds, 441) Baseline/TESTED AT [address] [address] [id number] 10:50:00 Test Item Value Reference Range Interpretation Comments ACTIVATED CLOTTING TIME 263 sec Refe rence Range: (BEAKER) (test code = 74-137 seconds, 441) Baseline/TESTED AT [address] [address] POCT-GLUCOSE [id number] 07:45:00 Test Item Value Reference Range Interpretation Comments POC-GLUCOSE METER 188 mg/dL 70-110 H : TESTED A T [place] [address] (BEAKER) (test code = [facility], 1538) [address]: Reed Cleaner/Techni rebeca ID = [id number] for OSMANI KIMBLE BASIC METABOLIC [id number] 02:49:00 Test Item Value Reference Range Interpretation Comments SODIUM (BEAKER) 139 meq/L 136-145 (test code = 381) POTASSIUM (BEAKER) 3.9 meq/L 3.5-5.1 (test code = 379) CHLORIDE (BEAKER) 99 meq/L 98-107 (test code = 382) CO2 (BEAKER) (test 30 meq/L 22-29 H code = 355) BLOOD UREA NITROGEN 56 mg/dL 7-21 H (BEAKER) (test code = 354) CREATININE (BEAKER) 2.94 mg/dL 0.57-1.25 H (test code = 358) GLUCOSE RANDOM 162 mg/dL 70-105 H (BEAKER) (test code = 652) CALCIUM (BEAKER) 9.3 mg/dL 8.4-10.2 (test code = 697) EGFR (BEAKER) (test 15 mL/min/1.73 ESTIMA ELVA GFR IS code = 1092) sq m NOT ACCURATE CREATININE CLEARANCE IN PREDICTING GLOMERULAR FILTRATION RATE . ESTIMATED GFR I S NOT APPLICABLE FOR DIALYSIS PATIEN TS. Reed Cleaner ID - MARILU LB-TYPE NATRIURETIC FACTOR (BNP)2019-03-22 02:44:00 Test Item Value Reference Range Interpretation Comments B-TYPE NATRIURETIC PEPTIDE (BEAKER) 815 pg/mL 0-100 H (test code = 700) Reed Cleaner ID - MARILU [id number] 02:42:00 Test Item Value Reference Range Interpretation Comments PHOSPHORUS (BEAKER) (test code = 4.4 mg/dL 2.3-4.7 604) Reed Cleaner ID - MARILU [id number] 02:42:00 Test Item Value Reference Range Interpretation Comments MAGNESIUM (BEAKER) (test code = 2.1 mg/dL 1.6-2.6 627) Reed Cleaner ID - MARILU LLIPID [id number] 02:42:00 Test Item Value Reference Range Interpretation Comments TRIGLYCERIDES (BEAKER) (test code = 102 mg/dL 540) CHOLESTEROL (BEAKER) (test code = 161 mg/dL 631) HDL CHOLESTEROL (BEAKER) (test code 40 mg/dL = 976) LDL CHOLESTEROL CALCULATED (BEAKER) 101 mg/dL (test code = 633) Triglyceride Reference Range: Low Risk <150 Borderline 150-199 High Risk 200-499 Very High Risk >=500Cholesterol Reference Range: Low Risk <200 Borderline 200-239 High Risk >240HDL Cholesterol Reference Range: Low Risk >=60 High Risk <40LDL Cholesterol Reference Range: Optimal <100 Near Optimal 100-129 Borderline 130-159 High 160-189 Very High >=190 Reed Cleaner ID - [id number] 02:36:00 Test Item Value Reference Range Interpretation Comments PARTIAL THROMBOPLASTIN TIME 85.7 seconds 22.5-36.0 H (BEAKER) (test code = 760) CALCIUM, [id number] 02:33:00 Test Item Value Reference Range Interpretation Comments CALCIUM IONIZED (BEAKER) (test 1.10 mmol/L 1.12-1.27 L code = 698) PH, BLOOD (BEAKER) (test code = 7.40 1810) CBC W/PLT COUNT & AUTO [id number] 02:23:00 Test Item Value Reference Range Interpretation Comments WHITE BLOOD CELL COUNT (BEAKER) 5.6 K/ L 3.5-10.5 (test code = 775) RED BLOOD CELL COUNT (BEAKER) 3.81 M/ L 3.93-5.22 L (test code = 761) HEMOGLOBIN (BEAKER) (test code = 11.7 GM/DL 11.2-15.7 410) HEMATOCRIT (BEAKER) (test code = 35.5 % 34.1-44.9 411) MEAN CORPUSCULAR VOLUME (BEAKER) 93.2 fL 79.4-94.8 (test code = 753) MEAN CORPUSCULAR HEMOGLOBIN 30.7 pg 25.6-32.2 (BEAKER) (test code = 751) MEAN CORPUSCULAR HEMOGLOBIN CONC 33.0 GM/DL 32.2-35.5 (BEAKER) (test code = 752) RED CELL DISTRIBUTION WIDTH 13.0 % 11.7-14.4 (BEAKER) (test code = 412) PLATELET COUNT (BEAKER) (test 172 K/CU MM 150-450 code = 756) MEAN PLATELET VOLUME (BEAKER) 10.2 fL 9.4-12.3 (test code = 754) NUCLEATED RED BLOOD CELLS 0 /100 WBC 0-0 (BEAKER) (test code = 413) NEUTROPHILS RELATIVE PERCENT 52 % (BEAKER) (test code = 429) LYMPHOCYTES RELATIVE PERCENT 33 % (BEAKER) (test code = 430) MONOCYTES RELATIVE PERCENT 11 % (BEAKER) (test code = 431) EOSINOPHILS RELATIVE PERCENT 4 % (BEAKER) (test code = 432) BASOPHILS RELATIVE PERCENT 1 % (BEAKER) (test code = 437) NEUTROPHILS ABSOLUTE COUNT 2.90 K/ L 1.56-6.13 (BEAKER) (test code = 670) LYMPHOCYTES ABSOLUTE COUNT 1.84 K/ L 1.18-3.74 (BEAKER) (test code = 414) MONOCYTES ABSOLUTE COUNT (BEAKER) 0.64 K/ L 0.24-0.36 H (test code = 415) EOSINOPHILS ABSOLUTE COUNT 0.20 K/ L 0.04-0.36 (BEAKER) (test code = 416) BASOPHILS ABSOLUTE COUNT (BEAKER) 0.04 K/ L 0.01-0.08 (test code = 417) IMMATURE GRANULOCYTES-RELATIVE 0 % 0-1 PERCENT (BEAKER) (test code = 2801) U/S, ABDOMINAL, [id number] 01:50:00Reason for exam:->abd painFINAL REPORT INDICATION: abd [...] imaging on a nonemergent basis. Signed: [facility] Verified Date/Time: 03/22/2019 01:50:03 -GLUCOSE [id number] 21:37:00 Test Item Value Reference Range Interpretation Comments POC-GLUCOSE METER 257 mg/dL 70-110 H : TESTED A T [facility] 6720 (BEOJ) (test code = JODY Gipson [facility], 1538) [address]: Reed Cleaner/Techni rebeca ID = [id number] for EMILIO CUEVAS [id number] 19:18:00 Test Item Value Reference Range Interpretation Comments PARTIAL THROMBOPLASTIN TIME 53.5 seconds 22.5-36.0 H (BEAKER) (test code = 760) POCT-GLUCOSE [id number] 17:38:00 Test Item Value Reference Range Interpretation Comments POC-GLUCOSE METER 246 mg/dL 70-110 H : TESTED A T [facility] 6720 (CRISTY) (test code = [facility], 1538) [address]: Reed Cleaner/Techni rebeca ID = [id number] for FRANCISCO HAYDEN SHY CT, BRAIN, WITHOUT [id number] 17:36:00Reason for exam:->Left sided weakness, more so [...] Kavitha Box Verified Date/Time: 03/21/2019 17:36:00 TROPONIN [id number] 15:50:00 Test Item Value Reference Range Interpretation Comments TROPONIN I (BEAKER) (test code = 0.57 ng/mL 0.00-0.03 397) Troponin I (TnI) levels must be interpreted [...] failure, acidosis, acute neurological disease, and persistent tachyarrhythmia.Reed Cleaner ID - BSRAD, SHOULDER, COMPLETE (MIN 2 VIEWS), [id number] 14:38:00Reason for exam:->shoulder pain with ROMFINAL REPORT [...] MDReport Verified Date/Time: 03/21/2019 14:38:21 Reading Location: [facility] Radiology Reading Room POCT-GLUCOSE [id number] 13:19:00 Test Item Value Reference Range Interpretation Comments POC-GLUCOSE METER 155 mg/dL 70-110 H : TESTED A T [facility] 6720 (BEAKER) (test code = JODY Gipson [facility], 1538) [address]: Reed Cleaner/Techni rebeca ID = [id number] for FARIBA CARRILLO [id number] 11:14:00 Test Item Value Reference Range Interpretation Comments PARTIAL THROMBOPLASTIN TIME 108.5 seconds 22.5-36.0 H (BEAKER) (test code = 760) POCT-GLUCOSE [id number] 07:51:00 Test Item Value Reference Range Interpretation Comments POC-GLUCOSE METER 198 mg/dL 70-110 H : TESTED A T [facility] 6720 (BEAKER) (test code = JODY Gipson [facility], 1538) [address]: Reed Cleaner/Techni rebeca ID = [id number] for SHY MIRAMONTES [id number] 03:52:00 Test Item Value Reference Range Interpretation Comments PARTIAL THROMBOPLASTIN 106.2 seconds 22.5-36.0 H B.no .[id number] ok to TIME (BEAKER) (test released result. code = 760) BASIC METABOLIC [id number] 02:58:00 Test Item Value Reference Range Interpretation Comments SODIUM (BEAKER) 139 meq/L 136-145 (test code = 381) POTASSIUM (BEAKER) 3.9 meq/L 3.5-5.1 (test code = 379) CHLORIDE (BEAKER) 100 meq/L 98-107 (test code = 382) CO2 (BEAKER) (test 33 meq/L 22-29 H code = 355) BLOOD UREA NITROGEN 60 mg/dL 7-21 H (BEAKER) (test code = 354) CREATININE (BEAKER) 3.09 mg/dL 0.57-1.25 H (test code = 358) GLUCOSE RANDOM 278 mg/dL 70-105 H (BEAKER) (test code = 652) CALCIUM (BEAKER) 9.1 mg/dL 8.4-10.2 (test code = 697) EGFR (BEAKER) (test 15 mL/min/1.73 ESTIMA ELVA GFR IS code = 1092) sq m NOT ACCURATE CREATININE CLEARANCE IN PREDICTING GLOMERULAR FILTRATION RATE . ESTIMATED GFR I S NOT APPLICABLE FOR DIALYSIS PATIEN TS. Reed Cleaner ID - MELI MCBC (HEMOGRAM ONLY)2019-03-21 02:32:00 Test Item Value Reference Range Interpretation Comments WHITE BLOOD CELL COUNT (BEAKER) 4.8 K/ L 3.5-10.5 (test code = 775) RED BLOOD CELL COUNT (BEAKER) 3.57 M/ L 3.93-5.22 L (test code = 761) HEMOGLOBIN (BEAKER) (test code = 11.1 GM/DL 11.2-15.7 L 410) HEMATOCRIT (BEAKER) (test code = 33.4 % 34.1-44.9 L 411) MEAN CORPUSCULAR VOLUME (BEAKER) 93.6 fL 79.4-94.8 (test code = 753) MEAN CORPUSCULAR HEMOGLOBIN 31.1 pg 25.6-32.2 (BEAKER) (test code = 751) MEAN CORPUSCULAR HEMOGLOBIN CONC 33.2 GM/DL 32.2-35.5 (BEAKER) (test code = 752) RED CELL DISTRIBUTION WIDTH 12.9 % 11.7-14.4 (BEAKER) (test code = 412) PLATELET COUNT (BEAKER) (test 170 K/CU MM 150-450 code = 756) MEAN PLATELET VOLUME (BEAKER) 9.9 fL 9.4-12.3 (test code = 754) NUCLEATED RED BLOOD CELLS 0 /100 WBC 0-0 (BEAKER) (test code = 413) POCT-GLUCOSE [id number] 21:58:00 Test Item Value Reference Range Interpretation Comments POC-GLUCOSE METER 281 mg/dL 70-110 H : TESTED A T [facility] 6720 (BEAKER) (test code [facility], = 1538) [address]: Reed Cleaner/Techni rebeca ID = [id number] for WINSOME CHRISTIANSON [id number] 19:51:00 Test Item Value Reference Range Interpretation Comments PARTIAL THROMBOPLASTIN TIME 88.1 seconds 22.5-36.0 H (BEAKER) (test code = 760) CREATININE, RANDOM [id number] 18:56:00 Test Item Value Reference Range Interpretation Comments CREATININE URINE (BEAKER) (test 56.6 mg/dL code = 375) Reference Range: No NormalsOperator ID - BSPROTEIN, RANDOM [id number] 18:56:00 Test Item Value Reference Range Interpretation Comments PROTEIN, URINE (BEAKER) (test code = 11 mg/dL 0-14 1569) Reed Cleaner ID - BSURINALYSIS W/ [id number] 18:48:00 Test Item Value Reference Range Interpretation Comments COLOR (BEAKER) (test code = 470) Light Yellow CLARITY (BEAKER) (test code = Clear 469) SPECIFIC GRAVITY UA (BEAKER) 1.011 1.001-1.035 (test code = 468) PH UA (BEAKER) (test code = 467) 6.0 5.0-8.0 PROTEIN UA (BEAKER) (test code = Negative Negative 464) GLUCOSE UA (BEAKER) (test code = 30 mg/dL Negative A 365) KETONES UA (BEAKER) (test code = Negative Negative 371) BILIRUBIN UA (BEAKER) (test code Negative Negative = 462) BLOOD UA (BEAKER) (test code = Negative Negative 461) NITRITE UA (BEAKER) (test code = Negative Negative 465) LEUKOCYTE ESTERASE UA (BEAKER) Small Negative A (test code = 466) UROBILINOGEN UA (BEAKER) (test 0.2 mg/dL 0.2-1.0 code = 463) RBC UA (BEAKER) (test code = < /HPF 519) WBC UA (BEAKER) (test code = 1 /HPF 520) MUCUS (BEAKER) (test code = Rare 1574) SQUAMOUS EPITHELIAL (BEAKER) 1 /HPF (test code = 516) SOURCE(BEAKER) (test code = 2795) Reed Cleaner ID - [auto]Reed Cleaner ID - hankPOCT-GLUCOSE [id number] 18:32:00 Test Item Value Reference Range Interpretation Comments POC-GLUCOSE METER 190 mg/dL 70-110 H : TESTED A T [facility] 6720 (BEAKER) (test code = JODY Gipson [facility], 1538) [address]: Reed Cleaner/Techni rebeca ID = [id number] for AR JACKELYN, SHY RAD, CHEST, 1 VIEW, NON [id number] 15:28:00Reason for exam:->Fluid statusShould this be performed [...] old fractures both humeral heads/necks. Signed: Noemy Stormeport Verified Date/Time: 03/20/2019 15:28:46 Reading Location: [facility] Reading Room Electronically signed by: NOEMY STORM M.D. on03/20/2019 03:28 PMTROPONIN [id number] 13:36:00 Test Item Value Reference Range Interpretation Comments TROPONIN I (BEAKER) (test code = 0.78 ng/mL 0.00-0.03 397) Troponin I (TnI) levels must be interpreted [...] failure, acidosis, acute neurological disease, and persistent tachyarrhythmia.Reed Cleaner ID - TRISTON [id number] 12:50:00 Test Item Value Reference Range Interpretation Comments PARTIAL THROMBOPLASTIN TIME 65.6 seconds 22.5-36.0 H (BEAKER) (test code = 760) POCT-GLUCOSE [id number] 11:57:00 Test Item Value Reference Range Interpretation Comments POC-GLUCOSE METER 154 mg/dL 70-110 H : TESTED A T [facility] 6720 ([place]) (test code = [employer] [facility], 1538) [address]: Reed Cleaner/Techni rebeca ID = [id number] for SHY MIRAMONTES HEMOGLOBIN [id number] 09:21:00 Test Item Value Reference Range Interpretation Comments HEMOGLOBIN A1C (BEAKER) (test code = 8.5 % 4.3-6.1 H 368) POCT-GLUCOSE [id number] 07:53:00 Test Item Value Reference Range Interpretation Comments POC-GLUCOSE METER 99 mg/dL 70-110 : TESTED A T [facility] 6720 ([place]) (test code = [facility] [employer] [facility], 1538) [address]: Reed Cleaner/Techni rebeca ID = [id number] for KARLEY MANCUSO TROPONIN [id number] 06:40:00 Test Item Value Reference Range Interpretation Comments TROPONIN I (BEAKER) (test code = 0.79 ng/mL 0.00-0.03 397) Troponin I (TnI) levels must be interpreted [...] failure, acidosis, acute neurological disease, and persistent tachyarrhythmia.Reed Cleaner ID - CLARIBELROPONIN [id number] 01:53:00 Test Item Value Reference Range Interpretation Comments TROPONIN I (BEAKER) (test code = 0.75 ng/mL 0.00-0.03 397) Troponin I (TnI) levels must be interpreted [...] failure, acidosis, acute neurological disease, and persistent tachyarrhythmia.Reed Cleaner ID - CHRISTIANOALEJANDROASIC METABOLIC PANEL 2019-03-20 01:52:00 Test Item Value Reference Range Interpretation Comments SODIUM (BEAKER) 139 meq/L 136-145 (test code = 381) POTASSIUM (BEAKER) 3.5 meq/L 3.5-5.1 (test code = 379) CHLORIDE (BEAKER) 100 meq/L 98-107 (test code = 382) CO2 (BEAKER) (test 28 meq/L 22-29 code = 355) BLOOD UREA NITROGEN 69 mg/dL 7-21 H (BEAKER) (test code = 354) CREATININE (BEAKER) 2.98 mg/dL 0.57-1.25 H (test code = 358) GLUCOSE RANDOM 142 mg/dL 70-105 H (BEAKER) (test code = 652) CALCIUM (BEAKER) 9.5 mg/dL 8.4-10.2 (test code = 697) EGFR (BEAKER) (test 15 mL/min/1.73 ESTIMA ELVA GFR IS code = 1092) sq m NOT ACCURATE CREATININE CLEARANCE IN PREDICTING GLOMERULAR FILTRATION RATE . ESTIMATED GFR I S NOT APPLICABLE FOR DIALYSIS PATIEN TS. Reed Cleaner ID - [id number] 01:25:00 Test Item Value Reference Range Interpretation Comments MAGNESIUM (BEAKER) (test code = 2.2 mg/dL 1.6-2.6 627) Reed Cleaner ID - [id number] 01:23:00 Test Item Value Reference Range Interpretation Comments PARTIAL THROMBOPLASTIN 109.9 seconds 22.5-36.0 H B.no .[id number] ok to TIME (BEAKER) (test released result. code = 760) Prior to initiating heparinCBC W/PLT COUNT & AUTO [id number] 01:02:00 Test Item Value Reference Range Interpretation Comments WHITE BLOOD CELL COUNT (BEAKER) 5.9 K/ L 3.5-10.5 (test code = 775) RED BLOOD CELL COUNT (BEAKER) 3.93 M/ L 3.93-5.22 (test code = 761) HEMOGLOBIN (BEAKER) (test code = 12.0 GM/DL 11.2-15.7 410) HEMATOCRIT (BEAKER) (test code = 36.5 % 34.1-44.9 411) MEAN CORPUSCULAR VOLUME (BEAKER) 92.9 fL 79.4-94.8 (test code = 753) MEAN CORPUSCULAR HEMOGLOBIN 30.5 pg 25.6-32.2 (BEAKER) (test code = 751) MEAN CORPUSCULAR HEMOGLOBIN CONC 32.9 GM/DL 32.2-35.5 (BEAKER) (test code = 752) RED CELL DISTRIBUTION WIDTH 12.9 % 11.7-14.4 (BEAKER) (test code = 412) PLATELET COUNT (BEAKER) (test 184 K/CU MM 150-450 code = 756) MEAN PLATELET VOLUME (BEAKER) 10.2 fL 9.4-12.3 (test code = 754) NUCLEATED RED BLOOD CELLS 0 /100 WBC 0-0 (BEAKER) (test code = 413) NEUTROPHILS RELATIVE PERCENT 56 % (BEAKER) (test code = 429) LYMPHOCYTES RELATIVE PERCENT 31 % (BEAKER) (test code = 430) MONOCYTES RELATIVE PERCENT 10 % (BEAKER) (test code = 431) EOSINOPHILS RELATIVE PERCENT 2 % (BEAKER) (test code = 432) BASOPHILS RELATIVE PERCENT 1 % (BEAKER) (test code = 437) NEUTROPHILS ABSOLUTE COUNT 3.31 K/ L 1.56-6.13 (BEAKER) (test code = 670) LYMPHOCYTES ABSOLUTE COUNT 1.83 K/ L 1.18-3.74 (BEAKER) (test code = 414) MONOCYTES ABSOLUTE COUNT (BEAKER) 0.61 K/ L 0.24-0.36 H (test code = 415) EOSINOPHILS ABSOLUTE COUNT 0.14 K/ L 0.04-0.36 (BEAKER) (test code = 416) BASOPHILS ABSOLUTE COUNT (BEAKER) 0.03 K/ L 0.01-0.08 (test code = 417) IMMATURE GRANULOCYTES-RELATIVE 0 % 0-1 PERCENT (BEAKER) (test code = 2801) POCT-GLUCOSE [id number] 09:17:00 Test Item Value Reference Range Interpretation Comments POC-GLUCOSE METER 161 mg/dL 70-110 H : TESTED A T [facility] 6720 (BEAKER) ([facility], 1538) [address]: Reed Cleaner/Techni rebeca ID = [id number] for DANIELE BAKER BASIC METABOLIC [id number] 07:10:00 Test Item Value Reference Range Interpretation Comments SODIUM (BEAKER) 141 meq/L 136-145 (test code = 381) POTASSIUM (BEAKER) 3.5 meq/L 3.5-5.1 (test code = 379) CHLORIDE (BEAKER) 104 meq/L 98-107 (test code = 382) CO2 (BEAKER) (test 30 meq/L 22-29 H code = 355) BLOOD UREA NITROGEN 76 mg/dL 7-21 H (BEAKER) (test code = 354) CREATININE (BEAKER) 2.72 mg/dL 0.57-1.25 H (test code = 358) GLUCOSE RANDOM 147 mg/dL 70-105 H (BEAKER) (test code = 652) CALCIUM (BEAKER) 8.3 mg/dL 8.4-10.2 L (test code = 697) EGFR (BEAKER) (test 17 mL/min/1.73 ESTIMA ELVA GFR IS code = 1092) sq m NOT ACCURATE CREATININE CLEARANCE IN PREDICTING GLOMERULAR FILTRATION RATE . ESTIMATED GFR I S NOT APPLICABLE FOR DIALYSIS PATIEN TS. URIC [id number] 07:07:00 Test Item Value Reference Range Interpretation Comments URIC ACID (BEAKER) (test code = 9.9 mg/dL 2.6-7.2 H 773) [id number] 07:07:00 Test Item Value Reference Range Interpretation Comments MAGNESIUM (BEAKER) (test code = 2.3 mg/dL 1.6-2.6 627) [id number] 07:07:00 Test Item Value Reference Range Interpretation Comments PHOSPHORUS (BEAKER) (test code = 3.3 mg/dL 2.3-4.7 604) B-TYPE NATRIURETIC FACTOR (BNP)2019-01-30 06:44:00 Test Item Value Reference Range Interpretation Comments B-TYPE NATRIURETIC PEPTIDE (BEAKER) 365 pg/mL 0-100 H (test code = 700) CALCIUM, [id number] 06:31:00 Test Item Value Reference Range Interpretation Comments CALCIUM IONIZED (BEAKER) (test 1.08 mmol/L 1.12-1.27 L code = 698) PH, BLOOD (BEAKER) (test code = 7.41 1810) CBC W/PLT COUNT & AUTO [id number] 06:17:00 Test Item Value Reference Range Interpretation Comments WHITE BLOOD CELL COUNT (BEAKER) 7.6 K/ L 3.5-10.5 (test code = 775) RED BLOOD CELL COUNT (BEAKER) 3.23 M/ L 3.93-5.22 L (test code = 761) HEMOGLOBIN (BEAKER) (test code = 9.9 GM/DL 11.2-15.7 L 410) HEMATOCRIT (BEAKER) (test code = 31.1 % 34.1-44.9 L 411) MEAN CORPUSCULAR VOLUME (BEAKER) 96.3 fL 79.4-94.8 H (test code = 753) MEAN CORPUSCULAR HEMOGLOBIN 30.7 pg 25.6-32.2 (BEAKER) (test code = 751) MEAN CORPUSCULAR HEMOGLOBIN CONC 31.8 GM/DL 32.2-35.5 L (BEAKER) (test code = 752) RED CELL DISTRIBUTION WIDTH 13.4 % 11.7-14.4 (BEAKER) (test code = 412) PLATELET COUNT (BEAKER) (test 190 K/CU MM 150-450 code = 756) MEAN PLATELET VOLUME (BEAKER) 10.3 fL 9.4-12.3 (test code = 754) NUCLEATED RED BLOOD CELLS 0 /100 WBC 0-0 (BEAKER) (test code = 413) NEUTROPHILS RELATIVE PERCENT 63 % (BEAKER) (test code = 429) LYMPHOCYTES RELATIVE PERCENT 23 % (BEAKER) (test code = 430) MONOCYTES RELATIVE PERCENT 11 % (BEAKER) (test code = 431) EOSINOPHILS RELATIVE PERCENT 3 % (BEAKER) (test code = 432) BASOPHILS RELATIVE PERCENT 1 % (BEAKER) (test code = 437) NEUTROPHILS ABSOLUTE COUNT 4.74 K/ L 1.56-6.13 (BEAKER) (test code = 670) LYMPHOCYTES ABSOLUTE COUNT 1.75 K/ L 1.18-3.74 (BEAKER) (test code = 414) MONOCYTES ABSOLUTE COUNT (BEAKER) 0.80 K/ L 0.24-0.36 H (test code = 415) EOSINOPHILS ABSOLUTE COUNT 0.23 K/ L 0.04-0.36 (BEAKER) (test code = 416) BASOPHILS ABSOLUTE COUNT (BEAKER) 0.04 K/ L 0.01-0.08 (test code = 417) IMMATURE GRANULOCYTES-RELATIVE 0 % 0-1 PERCENT (BEAKER) (test code = 2801) POCT-GLUCOSE [id number] 21:20:00 Test Item Value Reference Range Interpretation Comments POC-GLUCOSE METER 140 mg/dL 70-110 H : TESTED A T [facility] 6720 (BEAKER) (test code = [place]ODY [place], 1538) [address]: Reed Cleaner/Techni rebeca ID = [id number] for Fatmata Robison CREATININE, RANDOM [id number] 19:07:00 Test Item Value Reference Range Interpretation Comments CREATININE URINE (BEAKER) (test 101.3 mg/dL code = 375) Reference Range: No NormalsPROTEIN, RANDOM [id number] 19:07:00 Test Item Value Reference Range Interpretation Comments PROTEIN, URINE (BEAKER) (test code = 24 mg/dL 0-14 H 1569) SODIUM, RANDOM [id number] 19:07:00 Test Item Value Reference Range Interpretation Comments SODIUM URINE (BEAKER) (test code = 27 meq/L 243) Reference Range: No NormalsPOCT-GLUCOSE [id number] 17:13:00 Test Item Value Reference Range Interpretation Comments POC-GLUCOSE METER 172 mg/dL 70-110 H : TESTED A T [facility] 6720 (BEAKER) (test code = [place], 1538) [address]: Reed Cleaner/Techni rebeca ID = [id number] for JOHNATHAN KINGSLEY URINALYSIS W/ [id number] 15:46:00 Test Item Value Reference Range Interpretation Comments COLOR (BEAKER) (test code = 470) Yellow CLARITY (BEAKER) (test code = 469) Clear SPECIFIC GRAVITY UA (BEAKER) (test 1.014 1.001-1.035 code = 468) PH UA (BEAKER) (test code = 467) 5.5 5.0-8.0 PROTEIN UA (BEAKER) (test code = 20 mg/dL Negative A 464) GLUCOSE UA (BEAKER) (test code = 300 mg/dL Negative A 365) KETONES UA (BEAKER) (test code = Negative Negative 371) BILIRUBIN UA (BEAKER) (test code = Negative Negative 462) BLOOD UA (BEAKER) (test code = 461) Negative Negative NITRITE UA (BEAKER) (test code = Negative Negative 465) LEUKOCYTE ESTERASE UA (BEAKER) Negative Negative (test code = 466) UROBILINOGEN UA (BEAKER) (test code 0.2 mg/dL 0.2-1.0 = 463) RBC UA (BEAKER) (test code = 519) < /HPF WBC UA (BEAKER) (test code = 520) < /HPF SOURCE(BEAKER) (test code = 2795) BASIC METABOLIC [id number] 13:57:00 Test Item Value Reference Range Interpretation Comments SODIUM (BEAKER) 136 meq/L 136-145 (test code = 381) POTASSIUM (BEAKER) 3.5 meq/L 3.5-5.1 (test code = 379) CHLORIDE (BEAKER) 97 meq/L 98-107 L (test code = 382) CO2 (BEAKER) (test 30 meq/L 22-29 H code = 355) BLOOD UREA NITROGEN 82 mg/dL 7-21 H (BEAKER) (test code = 354) CREATININE (BEAKER) 3.06 mg/dL 0.57-1.25 H (test code = 358) GLUCOSE RANDOM 291 mg/dL 70-105 H (BEAKER) (test code = 652) CALCIUM (BEAKER) 8.6 mg/dL 8.4-10.2 (test code = 697) EGFR (BEAKER) (test 15 mL/min/1.73 ESTIMA ELVA GFR IS code = 1092) sq m NOT ACCURATE CREATININE CLEARANCE IN PREDICTING GLOMERULAR FILTRATION RATE . ESTIMATED GFR I S NOT APPLICABLE FOR DIALYSIS PATIEN TS. [id number] 13:56:00 Test Item Value Reference Range Interpretation Comments PHOSPHORUS (BEAKER) (test code = 2.6 mg/dL 2.3-4.7 604) [id number] 13:56:00 Test Item Value Reference Range Interpretation Comments MAGNESIUM (BEAKER) (test code = 2.4 mg/dL 1.6-2.6 627) RAD, CHEST, 1 VIEW, NON [id number] 13:55:00Reason for exam:->Fluid statusShould this be performed at the bedside?->YesFINAL REPORT AP chest Comparison exam: 01/25/2019 History provided: Fluid status Heart size magnified by projection. Lungs currently grossly clear, and vascularity normal. Chronicdeformity of the right humeral neck. Signed: Atul Malave MDReport Verified Date/Time: 01/29/2019 13:55:37 Reading Location: [facility] Diagnostic Imaging Reading Room [place] [address] POCT-GLUCOSE [id number] 11:49:00 Test Item Value Reference Range Interpretation Comments POC-GLUCOSE METER 273 mg/dL 70-110 H : TESTED A T [facility] 6720 (BEAKER) (test code = [place], 1538) [address]: Reed Cleaner/Techni rebeca ID = [id number] for Tatyana Sterling C. DIFFICILE GDH [id number] 11:07:00 Test Item Value Reference Range Interpretation Comments CDT TOXIN (test code Negative Negative = [id number]) CDT GDH ANTIGEN Positive Negative A C. difficile present but (test code = toxin not detec elva. [id number]) Indicates colon ization with non-toxige alexis strain or level of tox in below detectable leve ls. No need for enteri c isolation. Sandoval atment is rarely needed ( only when strong clinical suspicion for Clostridium difficile infection) Testing performed by [employer] Rapid Cassette Assay. For GDH, published sensitivity of the assay is 98.7% compared to cytotoxicity testing. For Toxin AB, published sensitivity is 87.8% and specificity 99.4% compared to cytotoxicity testing.Verification of kit performance was done by the [facility] Microbiology Lab prior to clinical use.POCT-GLUCOSE [id number] 07:57:00 Test Item Value Reference Range Interpretation Comments POC-GLUCOSE METER 227 mg/dL 70-110 H : TESTED A T [facility] 6720 (BEAKER) (test code = JODY [place], 1538) [id number]: Reed Cleaner/Techni rebeca ID = [id number] for Tatyana Sterling CBC (HEMOGRAM ONLY)2019-01-29 05:39:00 Test Item Value Reference Range Interpretation Comments WHITE BLOOD CELL COUNT (BEAKER) 9.0 K/ L 3.5-10.5 (test code = 775) RED BLOOD CELL COUNT (BEAKER) 3.30 M/ L 3.93-5.22 L (test code = 761) HEMOGLOBIN (BEAKER) (test code = 10.2 GM/DL 11.2-15.7 L 410) HEMATOCRIT (BEAKER) (test code = 31.5 % 34.1-44.9 L 411) MEAN CORPUSCULAR VOLUME (BEAKER) 95.5 fL 79.4-94.8 H (test code = 753) MEAN CORPUSCULAR HEMOGLOBIN 30.9 pg 25.6-32.2 (BEAKER) (test code = 751) MEAN CORPUSCULAR HEMOGLOBIN CONC 32.4 GM/DL 32.2-35.5 (BEAKER) (test code = 752) RED CELL DISTRIBUTION WIDTH 13.5 % 11.7-14.4 (BEAKER) (test code = 412) PLATELET COUNT (BEAKER) (test 196 K/CU MM 150-450 code = 756) MEAN PLATELET VOLUME (BEAKER) 10.3 fL 9.4-12.3 (test code = 754) NUCLEATED RED BLOOD CELLS 0 /100 WBC 0-0 (BEAKER) (test code = 413) POCT-GLUCOSE [id number] 22:07:00 Test Item Value Reference Range Interpretation Comments POC-GLUCOSE METER 229 mg/dL 70-110 H : TESTED A T [facility] 6720 (BEAKER) (test code = JODY Gipson [facility], 1538) [id number]: Reed Cleaner/Techni rebeca ID = [id number] for SELINA MCCLURE OCCULT BLOOD, [id number] 22:07:00 Test Item Value Reference Range Interpretation Comments FECAL OCCULT BLOOD (BEAKER) (test Negative Negative code = 618) POCT-GLUCOSE [id number] 12:00:00 Test Item Value Reference Range Interpretation Comments POC-GLUCOSE METER 208 mg/dL 70-110 H : Notified RN/MD: ([facility]) (test code = TESTED AT [facility] 6720 1538) [facility], [id number]: Reed Cleaner/Techni rebeca ID = [id number] for Veena Omalley [id number] 09:10:00 Test Item Value Reference Range Interpretation Comments PARTIAL THROMBOPLASTIN TIME 77.4 seconds 22.5-36.0 H (AKER) (test code = 760) POCT-GLUCOSE [id number] 08:40:00 Test Item Value Reference Range Interpretation Comments POC-GLUCOSE METER 153 mg/dL 70-110 H : [facility] (BEAKER) (test code [facility], = 1538) [id number]: Reed Cleaner/Techni rebeca ID = [id number] for RUMAROSA JANETH SMITH BASIC METABOLIC [id number] 05:15:00 Test Item Value Reference Range Interpretation Comments SODIUM (BEAKER) 137 meq/L 136-145 (test code = 381) POTASSIUM (BEAKER) 3.5 meq/L 3.5-5.1 (test code = 379) CHLORIDE (BEAKER) 96 meq/L 98-107 L (test code = 382) CO2 (BEAKER) (test 30 meq/L 22-29 H code = 355) BLOOD UREA NITROGEN 84 mg/dL 7-21 H (BEAKER) (test code = 354) CREATININE (BEAKER) 3.26 mg/dL 0.57-1.25 H (test code = 358) GLUCOSE RANDOM 125 mg/dL 70-105 H (BEAKER) (test code = 652) CALCIUM (BEAKER) 8.9 mg/dL 8.4-10.2 (test code = 697) EGFR (BEAKER) (test 14 mL/min/1.73 ESTIMA ELVA GFR IS code = 1092) sq m NOT ACCURATE CREATININE CLEARANCE IN PREDICTING GLOMERULAR FILTRATION RATE . ESTIMATED GFR I S NOT APPLICABLE FOR DIALYSIS PATIRADHA GARCIA [id number] 05:11:00 Test Item Value Reference Range Interpretation Comments PARTIAL THROMBOPLASTIN TIME 122.1 seconds 22.5-36.0 H (BEAKER) (test code = 760) CBC (HEMOGRAM ONLY)2019-01-28 04:39:00 Test Item Value Reference Range Interpretation Comments WHITE BLOOD CELL COUNT (BEAKER) 6.9 K/ L 3.5-10.5 (test code = 775) RED BLOOD CELL COUNT (BEAKER) 3.53 M/ L 3.93-5.22 L (test code = 761) HEMOGLOBIN (BEAKER) (test code = 10.9 GM/DL 11.2-15.7 L 410) HEMATOCRIT (BEAKER) (test code = 33.4 % 34.1-44.9 L 411) MEAN CORPUSCULAR VOLUME (BEAKER) 94.6 fL 79.4-94.8 (test code = 753) MEAN CORPUSCULAR HEMOGLOBIN 30.9 pg 25.6-32.2 (BEAKER) (test code = 751) MEAN CORPUSCULAR HEMOGLOBIN CONC 32.6 GM/DL 32.2-35.5 (BEAKER) (test code = 752) RED CELL DISTRIBUTION WIDTH 13.7 % 11.7-14.4 (BEAKER) (test code = 412) PLATELET COUNT (BEAKER) (test 209 K/CU MM 150-450 code = 756) MEAN PLATELET VOLUME (BEAKER) 9.8 fL 9.4-12.3 (test code = 754) NUCLEATED RED BLOOD CELLS 0 /100 WBC 0-0 (BEAKER) (test code = 413) POCT-GLUCOSE [id number] 22:29:00 Test Item Value Reference Range Interpretation Comments POC-GLUCOSE METER 235 mg/dL 70-110 H : TESTED A T [facility] 6720 (BEAKER) (test code = JODY VENEGAS, 1538) [address]: Reed Cleaner/Techni rebeca ID = [id number] for HUGH COCHRAN [id number] 21:49:00 Test Item Value Reference Range Interpretation Comments PARTIAL THROMBOPLASTIN TIME 81.9 seconds 22.5-36.0 H (BEAKER) (test code = 760) POCT-GLUCOSE [id number] 17:50:00 Test Item Value Reference Range Interpretation Comments POC-GLUCOSE METER 236 mg/dL 70-110 H : TESTED A T [facility] 6720 (BEAKER) (test code = JODY R [facility], 1538) [address]: Reed Cleaner/Techni rebeca ID = [id number] for INDIO ISAACS [id number] 16:52:00 Test Item Value Reference Range Interpretation Comments PROTIME (BEAKER) (test code = 13.7 seconds 11.9-14.2 759) INR (BEAKER) (test code = 370) 1.1 <=5.9 PARTIAL THROMBOPLASTIN TIME 60.7 seconds 22.5-36.0 H (BEAKER) (test code = 760) Effective 07/18/2018: PT Reference Range ChangeNew: 11.9-14.2 Previous: 11.7- 14.7RECOMMENDED COUMADIN/WARFARIN INR THERAPY RANGESSTANDARD DOSE: 2.0-3.0 Includes: PROPHYLAXIS for venous thrombosis, systemic embolization; TREATMENT for venous thrombosis and/or pulmonary embolus.HIGH RISK: Target INR is2.5-3.5 for patients wiht mechanical heart valves.[id number] 13:41:00 Test Item Value Reference Range Interpretation Comments PROTIME (BEAKER) (test code = 14.1 seconds 11.9-14.2 759) INR (BEAKER) (test code = 370) 1.2 <=5.9 PARTIAL THROMBOPLASTIN TIME 132.4 seconds 22.5-36.0 H (BEAKER) (test code = 760) Effective 07/18/2018: PT Reference Range ChangeNew: 11.9-14.2 Previous: 11.7- 14.7RECOMMENDED COUMADIN/WARFARIN INR THERAPY RANGESSTANDARD DOSE: 2.0-3.0 Includes: PROPHYLAXIS for venous thrombosis, systemic embolization; TREATMENT for venous thrombosis and/or pulmonary embolus.HIGH RISK: Target INR is2.5-3.5 for patients wiht mechanical heart valves.POCT-GLUCOSE [id number] 12:47:00 Test Item Value Reference Range Interpretation Comments POC-GLUCOSE METER 229 mg/dL 70-110 H : TESTED A T [facility] 6720 (BEAKER) (test code = [facility], 1538) [address]: Reed Cleaner/Techni rebeca ID = [id number] for QU EDER, INDIO POCT-GLUCOSE [id number] 09:42:00 Test Item Value Reference Range Interpretation Comments POC-GLUCOSE METER 188 mg/dL 70-110 H : TESTED A T [facility] 6720 (BEAKER) (test code = [facility], 1538) [address]: Reed Cleaner/Techni rebeca ID = [id number] for QU EDER, INDIO [id number] 06:24:00 Test Item Value Reference Range Interpretation Comments PARTIAL THROMBOPLASTIN TIME 86.3 seconds 22.5-36.0 H (BEAKER) (test code = 760) BASIC METABOLIC [id number] 04:52:00 Test Item Value Reference Range Interpretation Comments SODIUM (BEAKER) 140 meq/L 136-145 (test code = 381) POTASSIUM (BEAKER) 3.6 meq/L 3.5-5.1 (test code = 379) CHLORIDE (BEAKER) 99 meq/L 98-107 (test code = 382) CO2 (BEAKER) (test 27 meq/L 22-29 code = 355) BLOOD UREA NITROGEN 77 mg/dL 7-21 H (BEAKER) (test code = 354) CREATININE (BEAKER) 3.29 mg/dL 0.57-1.25 H (test code = 358) GLUCOSE RANDOM 135 mg/dL 70-105 H (BEAKER) (test code = 652) CALCIUM (BEAKER) 9.6 mg/dL 8.4-10.2 (test code = 697) EGFR (BEAKER) (test 14 mL/min/1.73 ESTIMA ELVA GFR IS code = 1092) sq m NOT ACCURATE CREATININE CLEARANCE IN PREDICTING GLOMERULAR FILTRATION RATE . ESTIMATED GFR I S NOT APPLICABLE FOR DIALYSIS PATIEN TS. [id number] 04:25:00 Test Item Value Reference Range Interpretation Comments PARTIAL THROMBOPLASTIN TIME 158.8 seconds 22.5-36.0 HH (BEAKER) (test code = 760) CBC (HEMOGRAM ONLY)2019-01-27 04:07:00 Test Item Value Reference Range Interpretation Comments WHITE BLOOD CELL COUNT (BEAKER) 8.7 K/ L 3.5-10.5 (test code = 775) RED BLOOD CELL COUNT (BEAKER) 4.08 M/ L 3.93-5.22 (test code = 761) HEMOGLOBIN (BEAKER) (test code = 12.4 GM/DL 11.2-15.7 410) HEMATOCRIT (BEAKER) (test code = 39.4 % 34.1-44.9 411) MEAN CORPUSCULAR VOLUME (BEAKER) 96.6 fL 79.4-94.8 H (test code = 753) MEAN CORPUSCULAR HEMOGLOBIN 30.4 pg 25.6-32.2 (BEAKER) (test code = 751) MEAN CORPUSCULAR HEMOGLOBIN CONC 31.5 GM/DL 32.2-35.5 L (BEAKER) (test code = 752) RED CELL DISTRIBUTION WIDTH 13.9 % 11.7-14.4 (BEAKER) (test code = 412) PLATELET COUNT (BEAKER) (test 227 K/CU MM 150-450 code = 756) MEAN PLATELET VOLUME (BEAKER) 9.8 fL 9.4-12.3 (test code = 754) NUCLEATED RED BLOOD CELLS 0 /100 WBC 0-0 (BEAKER) (test code = 413) POCT-GLUCOSE [id number] 04:03:00 Test Item Value Reference Range Interpretation Comments POC-GLUCOSE METER 123 mg/dL 70-110 H : TESTED A T [facility] 6720 (BEAKER) (test code = [facility], 1538) [address]: Reed Cleaner/Techni rebeca ID = [id number] for ANDI ZUNIGA POCT-GLUCOSE [id number] 21:41:00 Test Item Value Reference Range Interpretation Comments POC-GLUCOSE METER 293 mg/dL 70-110 H : TESTED A T [facility] 6720 (BEAKER) (test code = [facility] [employer] [facility], 1538) [address]: Reed Cleaner/Techni rebeca ID = [id number] for ANDI ZUNIGA [id number] 19:17:00 Test Item Value Reference Range Interpretation Comments PARTIAL THROMBOPLASTIN TIME 27.4 seconds 22.5-36.0 ([facility]) (test code = 760) Prior to initiating heparinPLATELET [id number] 18:53:00 Test Item Value Reference Range Interpretation Comments PLATELET COUNT (AKER) (test 249 K/CU MM 150-450 code = 756) POCT-GLUCOSE [id number] 13:46:00 Test Item Value Reference Range Interpretation Comments POC-GLUCOSE METER 246 mg/dL 70-110 H : Notified RN/MD: (CRISTY) (test code = TESTED AT [place] [address]) [facility], [address]: Reed Cleaner/Techni rebeca ID = [id number] for Veena Omalley POCT-GLUCOSE [id number] 08:33:00 Test Item Value Reference Range Interpretation Comments POC-GLUCOSE METER 124 mg/dL 70-110 H : Notified RN/MD: (CRISTY) (test code = TESTED AT [place] [address]) [facility], [address]: Reed Cleaner/Techni rebeca ID = [id number] for Veena Omalley TROPONIN [id number] 07:02:00 Test Item Value Reference Range Interpretation Comments TROPONIN I ([facility]) (test code = 0.27 ng/mL 0.00-0.03 [facility]) Troponin I (TnI) levels must be interpreted [...] ONLY)2019-01-26 06:04:00 Test Item Value Reference Range Interpretation Comments WHITE BLOOD CELL COUNT (BEAKER) 7.0 K/ L 3.5-10.5 (test code = 775) RED BLOOD CELL COUNT (BEAKER) 3.89 M/ L 3.93-5.22 L (test code = 761) HEMOGLOBIN (BEAKER) (test code = 12.0 GM/DL 11.2-15.7 410) HEMATOCRIT (BEAKER) (test code = 37.2 % 34.1-44.9 411) MEAN CORPUSCULAR VOLUME (BEAKER) 95.6 fL 79.4-94.8 H (test code = 753) MEAN CORPUSCULAR HEMOGLOBIN 30.8 pg 25.6-32.2 (BEAKER) (test code = 751) MEAN CORPUSCULAR HEMOGLOBIN CONC 32.3 GM/DL 32.2-35.5 (BEAKER) (test code = 752) RED CELL DISTRIBUTION WIDTH 14.1 % 11.7-14.4 (BEAKER) (test code = 412) PLATELET COUNT (BEAKER) (test 235 K/CU MM 150-450 code = 756) MEAN PLATELET VOLUME (BEAKER) 9.9 fL 9.4-12.3 (test code = 754) NUCLEATED RED BLOOD CELLS 0 /100 WBC 0-0 (BEAKER) (test code = 413) POCT-GLUCOSE [id number] 05:54:00 Test Item Value Reference Range Interpretation Comments POC-GLUCOSE METER 94 mg/dL 70-110 : [facility] ([facility]ER[facility] (test code = JODY Gipson [facility], 1538) [address]: Reed Cleaner/Techni rebeca ID = [id number] for JEROME NORRIS RAD, CHEST, 1 VIEW, NON [id number] 03:34:00Reason for exam:->chest painShould this be performed [...] No acute intrathoracic abnormality. Signed: Yuan Ying [facility] [place] Verified Date/Time: 01/26/2019 03:34:50 TROPONIN [id number] 00:11:00 Test Item Value Reference Range Interpretation Comments TROPONIN I (BEAKER) (test code = 0.26 ng/mL 0.00-0.03 397) Troponin I (TnI) levels must be interpreted [...] acute neurological disease, and persistent tachyarrhythmia.COMPREHENSIVE METABOLIC [id number] 00:09:00 Test Item Value Reference Range Interpretation Comments TOTAL PROTEIN 6.8 gm/dL 6.0-8.3 Specimen sligh tly (BEAKER) (test code = hemoly zed 770) ALBUMIN (BEAKER) 3.7 g/dL 3.5-5.0 Specimen sl ightly (test code = 1145) hemolyzed ALKALINE PHOSPHATASE 99 U/L 40-150 (BEAKER) (test code = 346) BILIRUBIN TOTAL 0.3 mg/dL 0.2-1.2 Specimen sli ghtly (BEAKER) (test code = hemoly zed 377) SODIUM (BEAKER) (test 138 meq/L 136-145 code = 381) POTASSIUM (BEAKER) 4.0 meq/L 3.5-5.1 Specimen slightly (test code = 379) hemolyzed CHLORIDE (BEAKER) 98 meq/L 98-107 (test code = 382) CO2 (BEAKER) (test 30 meq/L 22-29 H code = 355) BLOOD UREA NITROGEN 75 mg/dL 7-21 H (BEAKER) (test code = 354) CREATININE (BEAKER) 3.06 mg/dL 0.57-1.25 H Specimen slightly (test code = 358) hemolyzed GLUCOSE RANDOM 197 mg/dL 70-105 H (BEAKER) (test code = 652) CALCIUM (BEAKER) 9.7 mg/dL 8.4-10.2 (test code = 697) AST (SGOT) (BEAKER) 15 U/L 5-34 Specimen slightly (test code = 353) hemolyzed ALT (SGPT) (BEAKER) 10 U/L 6-55 Specimen slightly (test code = 347) hemolyzed EGFR (BEAKER) (test 15 mL/min/1.73 ESTIMA ELVA GFR IS code = 1092) sq m NOT ACCURATE CREATININE CLEARANCE IN PREDICTING GLOMERULAR FILTRATION RATE . ESTIMATED GFR I S NOT APPLICABLE FOR DIALYSIS PATIEN TS. B-TYPE NATRIURETIC FACTOR (BNP)2019-01-25 23:58:00 Test Item Value Reference Range Interpretation Comments B-TYPE NATRIURETIC PEPTIDE (BEAKER) 638 pg/mL 0-100 H (test code = 700) [id number] 23:56:00 Test Item Value Reference Range Interpretation Comments MAGNESIUM (BEAKER) 2.3 mg/dL 1.6-2.6 Specimen slightly (test code = 627) hemolyzed [id number] 23:53:00 Test Item Value Reference Range Interpretation Comments PARTIAL THROMBOPLASTIN TIME 20.7 seconds 22.5-36.0 L (BEAKER) (test code = 760) Prior to initiating heparinPROTHROMBIN [id number] 23:41:00 Test Item Value Reference Range Interpretation Comments PROTIME (BEAKER) (test code = 13.2 seconds 11.9-14.2 759) INR (BEAKER) (test code = 370) 1.1 <=5.9 Effective 07/18/2018: PT Reference Range ChangeNew: 11.9-14.2 Previous: 11.7- 14.7RECOMMENDED COUMADIN/WARFARIN INR THERAPY RANGESSTANDARD DOSE: 2.0-3.0 Includes: PROPHYLAXIS for venous thrombosis, systemic embolization; TREATMENT for venous thrombosis and/or pulmonary embolus.HIGH RISK: Target INR is2.5-3.5 for patients wiht mechanical heart valves.Prior to initiating heparinAPTT 2019-01-25 23:41:00 Test Item Value Reference Range Interpretation Comments PARTIAL THROMBOPLASTIN TIME 22.3 seconds 22.5-36.0 L (BEAKER) (test code = 760) 6 hours after starting heparin infusion and as indicated per sliding scaleCBC W/PLT COUNT & AUTO [id number] 23:33:00 Test Item Value Reference Range Interpretation Comments WHITE BLOOD CELL COUNT (BEAKER) 7.6 K/ L 3.5-10.5 (test code = 775) RED BLOOD CELL COUNT (BEAKER) 3.62 M/ L 3.93-5.22 L (test code = 761) HEMOGLOBIN (BEAKER) (test code = 11.2 GM/DL 11.2-15.7 410) HEMATOCRIT (BEAKER) (test code = 34.7 % 34.1-44.9 411) MEAN CORPUSCULAR VOLUME (BEAKER) 95.9 fL 79.4-94.8 H (test code = 753) MEAN CORPUSCULAR HEMOGLOBIN 30.9 pg 25.6-32.2 (BEAKER) (test code = 751) MEAN CORPUSCULAR HEMOGLOBIN CONC 32.3 GM/DL 32.2-35.5 (BEAKER) (test code = 752) RED CELL DISTRIBUTION WIDTH 14.2 % 11.7-14.4 (BEAKER) (test code = 412) PLATELET COUNT (BEAKER) (test 240 K/CU MM 150-450 code = 756) MEAN PLATELET VOLUME (BEAKER) 9.9 fL 9.4-12.3 (test code = 754) NUCLEATED RED BLOOD CELLS 0 /100 WBC 0-0 (BEAKER) (test code = 413) NEUTROPHILS RELATIVE PERCENT 59 % (BEAKER) (test code = 429) LYMPHOCYTES RELATIVE PERCENT 27 % (BEAKER) (test code = 430) MONOCYTES RELATIVE PERCENT 10 % (BEAKER) (test code = 431) EOSINOPHILS RELATIVE PERCENT 3 % (BEAKER) (test code = 432) BASOPHILS RELATIVE PERCENT 0 % (BEAKER) (test code = 437) NEUTROPHILS ABSOLUTE COUNT 4.47 K/ L 1.56-6.13 (BEAKER) (test code = 670) LYMPHOCYTES ABSOLUTE COUNT 2.07 K/ L 1.18-3.74 (BEAKER) (test code = 414) MONOCYTES ABSOLUTE COUNT (BEAKER) 0.77 K/ L 0.24-0.36 H (test code = 415) EOSINOPHILS ABSOLUTE COUNT 0.24 K/ L 0.04-0.36 (BEAKER) (test code = 416) BASOPHILS ABSOLUTE COUNT (BEAKER) 0.03 K/ L 0.01-0.08 (test code = 417) IMMATURE GRANULOCYTES-RELATIVE 0 % 0-1 PERCENT (BEAKER) (test code = 2801) POCT-GLUCOSE [id number] 22:21:00 Test Item Value Reference Range Interpretation Comments POC-GLUCOSE METER 210 mg/dL 70-110 H : TESTED A T [facility] 6720 (BEAKER) (test code = [place], 1538) [address]: Reed Cleaner/Techni rebcea ID = [id number] for JEROME ENG POCT-GLUCOSE [id number] 12:57:00 Test Item Value Reference Range Interpretation Comments POC-GLUCOSE METER 318 mg/dL 70-110 H : TESTED A T [facility] 6720 (BEAKER) ([facility], = 1538) [address]: Reed Cleaner/Techni rebeca ID = [id number] for LEX MEMBRENO POCT-GLUCOSE [id number] 08:08:00 Test Item Value Reference Range Interpretation Comments POC-GLUCOSE METER 263 mg/dL 70-110 H : TESTED A T [facility] 6720 (BEAKER) (test code = [facility] Brandan [facility], 1538) [address]: Reed Cleaner/Techni rebeca ID = [id number] for NOVA PERSAUD CBC W/PLT COUNT & AUTO [id number] 05:21:00 Test Item Value Reference Range Interpretation Comments WHITE BLOOD CELL COUNT (BEAKER) 6.6 K/ L 3.5-10.5 (test code = 775) RED BLOOD CELL COUNT (BEAKER) 4.03 M/ L 3.93-5.22 (test code = 761) HEMOGLOBIN (BEAKER) (test code = 12.0 GM/DL 11.2-15.7 410) HEMATOCRIT (BEAKER) (test code = 37.8 % 34.1-44.9 411) MEAN CORPUSCULAR VOLUME (BEAKER) 93.8 fL 79.4-94.8 (test code = 753) MEAN CORPUSCULAR HEMOGLOBIN 29.8 pg 25.6-32.2 (BEAKER) (test code = 751) MEAN CORPUSCULAR HEMOGLOBIN CONC 31.7 GM/DL 32.2-35.5 L (BEAKER) (test code = 752) RED CELL DISTRIBUTION WIDTH 15.8 % 11.7-14.4 H (BEAKER) (test code = 412) PLATELET COUNT (BEAKER) (test 226 K/CU MM 150-450 code = 756) MEAN PLATELET VOLUME (BEAKER) 10.5 fL 9.4-12.3 (test code = 754) NUCLEATED RED BLOOD CELLS 0 /100 WBC 0-0 (BEAKER) (test code = 413) NEUTROPHILS RELATIVE PERCENT 82 % (BEAKER) (test code = 429) LYMPHOCYTES RELATIVE PERCENT 15 % (BEAKER) (test code = 430) MONOCYTES RELATIVE PERCENT 1 % (BEAKER) (test code = 431) EOSINOPHILS RELATIVE PERCENT 0 % (BEAKER) (test code = 432) BASOPHILS RELATIVE PERCENT 0 % (BEAKER) (test code = 437) NEUTROPHILS ABSOLUTE COUNT 5.38 K/ L 1.56-6.13 (BEAKER) (test code = 670) LYMPHOCYTES ABSOLUTE COUNT 1.01 K/ L 1.18-3.74 L (BEAKER) (test code = 414) MONOCYTES ABSOLUTE COUNT (BEAKER) 0.08 K/ L 0.24-0.36 L (test code = 415) EOSINOPHILS ABSOLUTE COUNT 0.00 K/ L 0.04-0.36 L (BEAKER) (test code = 416) BASOPHILS ABSOLUTE COUNT (BEAKER) 0.02 K/ L 0.01-0.08 (test code = 417) IMMATURE GRANULOCYTES-RELATIVE 1 % 0-1 PERCENT (BEAKER) (test code = 2801) BASIC METABOLIC [id number] 05:18:00 Test Item Value Reference Range Interpretation Comments SODIUM (BEAKER) 137 meq/L 136-145 (test code = 381) POTASSIUM (BEAKER) 4.3 meq/L 3.5-5.1 (test code = 379) CHLORIDE (BEAKER) 100 meq/L 98-107 (test code = 382) CO2 (BEAKER) (test 27 meq/L 22-29 code = 355) BLOOD UREA NITROGEN 74 mg/dL 7-21 H (BEAKER) (test code = 354) CREATININE (BEAKER) 2.85 mg/dL 0.57-1.25 H (test code = 358) GLUCOSE RANDOM 266 mg/dL 70-105 H (BEAKER) (test code = 652) CALCIUM (BEAKER) 9.5 mg/dL 8.4-10.2 (test code = 697) EGFR (BEAKER) (test 16 mL/min/1.73 ESTIMA ELVA GFR IS code = 1092) sq m NOT ACCURATE CREATININE CLEARANCE IN PREDICTING GLOMERULAR FILTRATION RATE . ESTIMATED GFR I S NOT APPLICABLE FOR DIALYSIS PATIEN TS. [id number] 05:17:00 Test Item Value Reference Range Interpretation Comments PHOSPHORUS (BEAKER) (test code = 4.4 mg/dL 2.3-4.7 604) [id number] 05:17:00 Test Item Value Reference Range Interpretation Comments MAGNESIUM (BEAKER) (test code = 2.0 mg/dL 1.6-2.6 627) B-TYPE NATRIURETIC FACTOR (BNP)2018-12-25 04:55:00 Test Item Value Reference Range Interpretation Comments B-TYPE NATRIURETIC PEPTIDE (BEAKER) 775 pg/mL 0-100 H (test code = 700) CALCIUM, [id number] 04:45:00 Test Item Value Reference Range Interpretation Comments CALCIUM IONIZED (BEAKER) (test 1.16 mmol/L 1.12-1.27 code = 698) PH, BLOOD (BEAKER) (test code = 7.32 1810) POCT-GLUCOSE [id number] 23:15:00 Test Item Value Reference Range Interpretation Comments POC-GLUCOSE METER 280 mg/dL 70-110 H : Notified RN/MD: (CRISTY) (test code = TESTED AT [place] [address]38) [facility], [address]: Reed Cleaner/Techni rebeca ID = [id number] for KEZIA GILMORE POCT-GLUCOSE [id number] 23:13:00 Test Item Value Reference Range Interpretation Comments POC-GLUCOSE METER 179 mg/dL 70-110 H : TESTED A T [place] [address] (BEAKER) (test code = [facility], 1538) [address]: Reed Cleaner/Techni rebeca ID = [id number] for GILMORE, JHShay ORALIA [id number] 22:12:00 Test Item Value Reference Range Interpretation Comments ACTIVATED CLOTTING TIME 147 sec Refe rence Range: (BEAKER) (test code = 74-137 seconds, 441) Baseline/TESTED AT [address] [address] [id number] 17:58:00 Test Item Value Reference Range Interpretation Comments ACTIVATED CLOTTING TIME 257 sec Refe rence Range: (BEAKER) (test code = 74-137 seconds, 441) Baseline/TESTED AT [place] [id number] [facility] [address] [id number] 17:57:00 Test Item Value Reference Range Interpretation Comments ACTIVATED CLOTTING TIME 252 sec Refe rence Range: (BEAKER) (test code = 74-137 seconds, 441) Baseline/TESTED AT [facility] 6720 [facility] [address] 0 POCT-GLUCOSE [id number] 12:58:00 Test Item Value Reference Range Interpretation Comments POC-GLUCOSE METER 150 mg/dL 70-110 H : TESTED A T [facility] 6720 ([facility]) (test code = [facility], 1538) [address]: Reed Cleaner/Techni rebeca ID = [id number] for MUKESH GOODRICH [id number] 08:41:00 Test Item Value Reference Range Interpretation Comments PARTIAL THROMBOPLASTIN TIME 69.4 seconds 22.5-36.0 H (AKER) (test code = 760) POCT-GLUCOSE [id number] 08:37:00 Test Item Value Reference Range Interpretation Comments POC-GLUCOSE METER 115 mg/dL 70-110 H : Notified RN/MD: ([facility]) (test code = TESTED AT [place] [id number] 1538) [facility], [address]: Reed Cleaner/Techni rebeca ID = [id number] for Adilene Madrigal COMPREHENSIVE METABOLIC [id number] 01:52:00 Test Item Value Reference Range Interpretation Comments TOTAL PROTEIN 6.5 gm/dL 6.0-8.3 Specimen sligh tly (BEAKER) (test code = hemoly zed 770) ALBUMIN (BEAKER) 3.6 g/dL 3.5-5.0 Specimen sl ightly (test code = 1145) hemolyzed ALKALINE PHOSPHATASE 89 U/L 40-150 (BEAKER) (test code = 346) BILIRUBIN TOTAL 0.4 mg/dL 0.2-1.2 Specimen sli ghtly (BEAKER) (test code = hemoly zed 377) SODIUM (BEAKER) (test 136 meq/L 136-145 code = 381) POTASSIUM (BEAKER) 4.0 meq/L 3.5-5.1 Specimen slightly (test code = 379) hemolyzed CHLORIDE (BEAKER) 100 meq/L 98-107 (test code = 382) CO2 (BEAKER) (test 24 meq/L 22-29 code = 355) BLOOD UREA NITROGEN 77 mg/dL 7-21 H (BEAKER) (test code = 354) CREATININE (BEAKER) 2.79 mg/dL 0.57-1.25 H Specimen slightly (test code = 358) hemolyzed GLUCOSE RANDOM 89 mg/dL 70-105 (BEAKER) (test code = 652) CALCIUM (BEAKER) 9.3 mg/dL 8.4-10.2 (test code = 697) AST (SGOT) (BEAKER) 18 U/L 5-34 Specimen slightly (test code = 353) hemolyzed ALT (SGPT) (BEAKER) 10 U/L 6-55 Specimen slightly (test code = 347) hemolyzed EGFR (BEAKER) (test 16 mL/min/1.73 ESTIMA ELVA GFR IS code = 1092) sq m NOT ACCURATE CREATININE CLEARANCE IN PREDICTING GLOMERULAR FILTRATION RATE . ESTIMATED GFR I S NOT APPLICABLE FOR DIALYSIS PATIEN [id number] 01:29:00 Test Item Value Reference Range Interpretation Comments PARTIAL THROMBOPLASTIN TIME 51.5 seconds 22.5-36.0 H (BEAKER) (test code = 760) POCT-GLUCOSE [id number] 18:32:00 Test Item Value Reference Range Interpretation Comments POC-GLUCOSE METER 185 mg/dL 70-110 H : TESTED A T [facility] 6720 (BEAKER) (test code = [facility], 153) [id number]: Reed Cleaner/Techni rebeca ID = [id number] for Fr campos, Akash POCT-GLUCOSE [id number] 18:31:00 Test Item Value Reference Range Interpretation Comments POC-GLUCOSE METER 210 mg/dL 70-110 H : TESTED A T [facility] 6720 (BEAKER) (test code = [facility], 1538) [id number]: Reed Cleaner/Techni rebeca ID = [id number] for Fr ancjames, Akash POCT-GLUCOSE [id number] 18:29:00 Test Item Value Reference Range Interpretation Comments POC-GLUCOSE METER 150 mg/dL 70-110 H : TESTED A T [facility] 6720 (BEAKER) (test code = [facility], 1538) [id number]: Reed Cleaner/Techni rebeca ID = [id number] for LIZ PRIEST [id number] 16:30:00 Test Item Value Reference Range Interpretation Comments PARTIAL THROMBOPLASTIN TIME 98.0 seconds 22.5-36.0 H (BEAKER) (test code = 760) TROPONIN [id number] 09:11:00 Test Item Value Reference Range Interpretation Comments TROPONIN I (BEAKER) (test code = 0.97 ng/mL 0.00-0.03 HH 397) Troponin I (TnI) levels must be interpreted [...] failure, acidosis, acute neurological disease, and persistent tachyarrhythmia.[id number] 07:52:00 Test Item Value Reference Range Interpretation Comments PHOSPHORUS (BEAKER) (test code = 3.9 mg/dL 2.3-4.7 604) [id number] 07:52:00 Test Item Value Reference Range Interpretation Comments MAGNESIUM (BEAKER) (test code = 2.0 mg/dL 1.6-2.6 627) COMPREHENSIVE METABOLIC [id number] 07:52:00 Test Item Value Reference Range Interpretation Comments TOTAL PROTEIN 6.0 gm/dL 6.0-8.3 (BEAKER) (test code = 770) ALBUMIN (BEAKER) 3.4 g/dL 3.5-5.0 L (test code = 1145) ALKALINE PHOSPHATASE 81 U/L 40-150 (BEAKER) (test code = 346) BILIRUBIN TOTAL 0.5 mg/dL 0.2-1.2 (BEAKER) (test code = 377) SODIUM (BEAKER) (test 138 meq/L 136-145 code = 381) POTASSIUM (BEAKER) 3.6 meq/L 3.5-5.1 (test code = 379) CHLORIDE (BEAKER) 100 meq/L 98-107 (test code = 382) CO2 (BEAKER) (test 28 meq/L 22-29 code = 355) BLOOD UREA NITROGEN 82 mg/dL 7-21 H (BEAKER) (test code = 354) CREATININE (BEAKER) 3.06 mg/dL 0.57-1.25 H (test code = 358) GLUCOSE RANDOM 128 mg/dL 70-105 H (BEAKER) (test code = 652) CALCIUM (BEAKER) 8.9 mg/dL 8.4-10.2 (test code = 697) AST (SGOT) (BEAKER) 15 U/L 5-34 (test code = 353) ALT (SGPT) (BEAKER) 10 U/L 6-55 (test code = 347) EGFR (BEAKER) (test 15 mL/min/1.73 ESTIMA ELVA GFR IS code = 1092) sq m NOT ACCURATE CREATININE CLEARANCE IN PREDICTING GLOMERULAR FILTRATION RATE . ESTIMATED GFR I S NOT APPLICABLE FOR DIALYSIS PATIEN TS. CALCIUM, [id number] 07:37:00 Test Item Value Reference Range Interpretation Comments CALCIUM IONIZED (BEAKER) (test 1.14 mmol/L 1.12-1.27 code = 698) PH, BLOOD (BEAKER) (test code = 7.40 1810) B-TYPE NATRIURETIC FACTOR (BNP)2018-12-23 06:42:00 Test Item Value Reference Range Interpretation Comments B-TYPE NATRIURETIC PEPTIDE (BEAKER) 190 pg/mL 0-100 H (test code = 700) [id number] 05:48:00 Test Item Value Reference Range Interpretation Comments PARTIAL THROMBOPLASTIN TIME 90.8 seconds 22.5-36.0 H (BEAKER) (test code = 760) CBC W/PLT COUNT & AUTO [id number] 05:35:00 Test Item Value Reference Range Interpretation Comments WHITE BLOOD CELL COUNT (BEAKER) 7.7 K/ L 3.5-10.5 (test code = 775) RED BLOOD CELL COUNT (BEAKER) 3.43 M/ L 3.93-5.22 L (test code = 761) HEMOGLOBIN (BEAKER) (test code = 10.2 GM/DL 11.2-15.7 L 410) HEMATOCRIT (BEAKER) (test code = 31.2 % 34.1-44.9 L 411) MEAN CORPUSCULAR VOLUME (BEAKER) 91.0 fL 79.4-94.8 (test code = 753) MEAN CORPUSCULAR HEMOGLOBIN 29.7 pg 25.6-32.2 (BEAKER) (test code = 751) MEAN CORPUSCULAR HEMOGLOBIN CONC 32.7 GM/DL 32.2-35.5 (BEAKER) (test code = 752) RED CELL DISTRIBUTION WIDTH 15.8 % 11.7-14.4 H (BEAKER) (test code = 412) PLATELET COUNT (BEAKER) (test 188 K/CU MM 150-450 code = 756) MEAN PLATELET VOLUME (BEAKER) 10.0 fL 9.4-12.3 (test code = 754) NUCLEATED RED BLOOD CELLS 0 /100 WBC 0-0 (BEAKER) (test code = 413) NEUTROPHILS RELATIVE PERCENT 65 % (BEAKER) (test code = 429) LYMPHOCYTES RELATIVE PERCENT 19 % (BEAKER) (test code = 430) MONOCYTES RELATIVE PERCENT 9 % (BEAKER) (test code = 431) EOSINOPHILS RELATIVE PERCENT 6 % (BEAKER) (test code = 432) BASOPHILS RELATIVE PERCENT 1 % (BEAKER) (test code = 437) NEUTROPHILS ABSOLUTE COUNT 4.99 K/ L 1.56-6.13 (BEAKER) (test code = 670) LYMPHOCYTES ABSOLUTE COUNT 1.46 K/ L 1.18-3.74 (BEAKER) (test code = 414) MONOCYTES ABSOLUTE COUNT (BEAKER) 0.68 K/ L 0.24-0.36 H (test code = 415) EOSINOPHILS ABSOLUTE COUNT 0.47 K/ L 0.04-0.36 H (BEAKER) (test code = 416) BASOPHILS ABSOLUTE COUNT (BEAKER) 0.04 K/ L 0.01-0.08 (test code = 417) IMMATURE GRANULOCYTES-RELATIVE 1 % 0-1 PERCENT (BEAKER) (test code = 2801) POCT-GLUCOSE [id number] 21:16:00 Test Item Value Reference Range Interpretation Comments POC-GLUCOSE METER 200 mg/dL 70-110 H : TESTED A T [facility] 6720 (BEAKER) (test code [facility], = 1538) [address]: Reed Cleaner/Techni rebeca ID = [id number] for GISSELLE OLMSTEAD [id number] 20:08:00 Test Item Value Reference Range Interpretation Comments PARTIAL THROMBOPLASTIN TIME 51.9 seconds 22.5-36.0 H (BEAKER) (test code = 760) POCT-GLUCOSE [id number] 17:37:00 Test Item Value Reference Range Interpretation Comments POC-GLUCOSE METER 211 mg/dL 70-110 H : TESTED A T [facility] 6720 (BEAKER) (test code = [facility], 1538) [id number]: Reed Cleaner/Techni rebeca ID = [id number] for Deepa Trivedi [id number] 13:26:00 Test Item Value Reference Range Interpretation Comments PARTIAL THROMBOPLASTIN TIME 65.2 seconds 22.5-36.0 H (BEAKER) (test code = 760) POCT-GLUCOSE [id number] 13:18:00 Test Item Value Reference Range Interpretation Comments POC-GLUCOSE METER 194 mg/dL 70-110 H : TESTED A T [facility] 6720 (BEAKER) (test code = [facility], 1538) [id number]: Reed Cleaner/Techni rebeca ID = [id number] for Deepa Trivedi HEMOGLOBIN [id number] 10:07:00 Test Item Value Reference Range Interpretation Comments HEMOGLOBIN A1C (BEAKER) (test code = 10.2 % 4.3-6.1 H 368) [id number] 09:05:00 Test Item Value Reference Range Interpretation Comments FERRITIN (BEAKER) (test code = 361) 195 ng/mL 5-275 POCT-GLUCOSE [id number] 08:37:00 Test Item Value Reference Range Interpretation Comments POC-GLUCOSE METER 202 mg/dL 70-110 H : TESTED A T [facility] 6720 (BEAKER) (test code = [facility], 1538) [id number]: Reed Cleaner/Techni rebeca ID = [id number] for CLIFF JACOBO CALCIUM, [id number] 06:55:00 Test Item Value Reference Range Interpretation Comments CALCIUM IONIZED (BEAKER) (test 1.11 mmol/L 1.12-1.27 L code = 698) PH, BLOOD (BEAKER) (test code = 7.41 1810) IRON, TIBC, % SAT. (WITHOUT FERRITIN)2018-12-22 06:37:00 Test Item Value Reference Range Interpretation Comments IRON (BEAKER) (test code = 547) 85.0 ug/dL 40.0-160.0 TOTAL IRON BINDING CAPACITY 226 ug/dL 250-450 L (BEAKER) (test code = 769) IRON % SATURATION (2) (BEAKER) 38 % 20-55 (test code = 2590) TROPONIN [id number] 05:40:00 Test Item Value Reference Range Interpretation Comments TROPONIN I (BEAKER) (test code = 1.32 ng/mL 0.00-0.03 HH 397) Troponin I (TnI) levels must be interpreted [...] acute neurological disease, and persistent tachyarrhythmia.COMPREHENSIVE METABOLIC [id number] 05:39:00 Test Item Value Reference Range Interpretation Comments TOTAL PROTEIN 6.2 gm/dL 6.0-8.3 (BEAKER) (test code = 770) ALBUMIN (BEAKER) 3.4 g/dL 3.5-5.0 L (test code = 1145) ALKALINE PHOSPHATASE 81 U/L 40-150 (BEAKER) (test code = 346) BILIRUBIN TOTAL 0.6 mg/dL 0.2-1.2 (BEAKER) (test code = 377) SODIUM (BEAKER) (test 135 meq/L 136-145 L code = 381) POTASSIUM (BEAKER) 3.9 meq/L 3.5-5.1 (test code = 379) CHLORIDE (BEAKER) 97 meq/L 98-107 L (test code = 382) CO2 (BEAKER) (test 30 meq/L 22-29 H code = 355) BLOOD UREA NITROGEN 77 mg/dL 7-21 H (BEAKER) (test code = 354) CREATININE (BEAKER) 3.61 mg/dL 0.57-1.25 H (test code = 358) GLUCOSE RANDOM 156 mg/dL 70-105 H (BEAKER) (test code = 652) CALCIUM (BEAKER) 9.0 mg/dL 8.4-10.2 (test code = 697) AST (SGOT) (BEAKER) 14 U/L 5-34 (test code = 353) ALT (SGPT) (BEAKER) 6 U/L 6-55 (test code = 347) EGFR (BEAKER) (test 12 mL/min/1.73 ESTIMA ELVA GFR IS code = 1092) sq m NOT ACCURATE CREATININE CLEARANCE IN PREDICTING GLOMERULAR FILTRATION RATE . ESTIMATED GFR I S NOT APPLICABLE FOR DIALYSIS PATIEN TS. B-TYPE NATRIURETIC FACTOR (BNP)2018-12-22 05:33:00 Test Item Value Reference Range Interpretation Comments B-TYPE NATRIURETIC PEPTIDE (BEAKER) 221 pg/mL 0-100 H (test code = 700) [id number] 05:32:00 Test Item Value Reference Range Interpretation Comments PHOSPHORUS (BEAKER) (test code = 4.8 mg/dL 2.3-4.7 H 604) [id number] 05:32:00 Test Item Value Reference Range Interpretation Comments MAGNESIUM (BEAKER) (test code = 2.0 mg/dL 1.6-2.6 627) [id number] 05:19:00 Test Item Value Reference Range Interpretation Comments PARTIAL THROMBOPLASTIN TIME 92.9 seconds 22.5-36.0 H (BEAKER) (test code = 760) RETICULOCYTE [id number] 05:11:00 Test Item Value Reference Range Interpretation Comments RETICULOCYTE COUNT PCT (BEAKER) (test 2.0 % 0.5-1.7 H code = 575) CBC W/PLT COUNT & AUTO [id number] 05:11:00 Test Item Value Reference Range Interpretation Comments WHITE BLOOD CELL COUNT (BEAKER) 7.4 K/ L 3.5-10.5 (test code = 775) RED BLOOD CELL COUNT (BEAKER) 3.42 M/ L 3.93-5.22 L (test code = 761) HEMOGLOBIN (BEAKER) (test code = 10.1 GM/DL 11.2-15.7 L 410) HEMATOCRIT (BEAKER) (test code = 31.4 % 34.1-44.9 L 411) MEAN CORPUSCULAR VOLUME (BEAKER) 91.8 fL 79.4-94.8 (test code = 753) MEAN CORPUSCULAR HEMOGLOBIN 29.5 pg 25.6-32.2 (BEAKER) (test code = 751) MEAN CORPUSCULAR HEMOGLOBIN CONC 32.2 GM/DL 32.2-35.5 (BEAKER) (test code = 752) RED CELL DISTRIBUTION WIDTH 15.9 % 11.7-14.4 H (BEAKER) (test code = 412) PLATELET COUNT (BEAKER) (test 192 K/CU MM 150-450 code = 756) MEAN PLATELET VOLUME (BEAKER) 10.5 fL 9.4-12.3 (test code = 754) NUCLEATED RED BLOOD CELLS 0 /100 WBC 0-0 (BEAKER) (test code = 413) NEUTROPHILS RELATIVE PERCENT 55 % (BEAKER) (test code = 429) LYMPHOCYTES RELATIVE PERCENT 26 % (BEAKER) (test code = 430) MONOCYTES RELATIVE PERCENT 12 % (BEAKER) (test code = 431) EOSINOPHILS RELATIVE PERCENT 7 % (BEAKER) (test code = 432) BASOPHILS RELATIVE PERCENT 1 % (BEAKER) (test code = 437) NEUTROPHILS ABSOLUTE COUNT 4.05 K/ L 1.56-6.13 (BEAKER) (test code = 670) LYMPHOCYTES ABSOLUTE COUNT 1.89 K/ L 1.18-3.74 (BEAKER) (test code = 414) MONOCYTES ABSOLUTE COUNT (BEAKER) 0.86 K/ L 0.24-0.36 H (test code = 415) EOSINOPHILS ABSOLUTE COUNT 0.49 K/ L 0.04-0.36 H (BEAKER) (test code = 416) BASOPHILS ABSOLUTE COUNT (BEAKER) 0.04 K/ L 0.01-0.08 (test code = 417) IMMATURE GRANULOCYTES-RELATIVE 1 % 0-1 PERCENT (BEAKER) (test code = 2801) U/S, RENAL, [id number] 01:46:00Reason for exam:->AKIShould this be performed at [...] Ying MDReport Verified Date/Time: 12/22/2018 01:46:35 POCT-GLUCOSE [id number] 22:07:00 Test Item Value Reference Range Interpretation Comments POC-GLUCOSE METER 105 mg/dL 70-110 : TESTED A T [facility] 6720 (BEAKER) (test code = [facility], 1538) [address]: Reed Cleaner/Techni rebeca ID = [id number] for Iza Hamilton [id number] 20:19:00 Test Item Value Reference Range Interpretation Comments PARTIAL THROMBOPLASTIN TIME 75.7 seconds 22.5-36.0 H (BEAKER) (test code = 760) POCT-GLUCOSE [id number] 17:42:00 Test Item Value Reference Range Interpretation Comments POC-GLUCOSE METER 305 mg/dL 70-110 H : TESTED A T [facility] 6720 (BEAKER) (test code = [facility] [employer] [facility], 1538) [id number]: Reed Cleaner/Techni rebeca ID = [id number] for CLIFF JACOBO URINALYSIS W/ [id number] 14:46:00 Test Item Value Reference Range Interpretation Comments COLOR (BEAKER) (test code = 470) Yellow CLARITY (BEAKER) (test code = 469) Clear SPECIFIC GRAVITY UA (BEAKER) (test 1.015 1.001-1.035 code = 468) PH UA (BEAKER) (test code = 467) 5.0 5.0-8.0 PROTEIN UA (BEAKER) (test code = 10 mg/dL Negative A 464) GLUCOSE UA (BEAKER) (test code = 30 mg/dL Negative A 365) KETONES UA (BEAKER) (test code = Negative Negative 371) BILIRUBIN UA (BEAKER) (test code = Negative Negative 462) BLOOD UA (BEAKER) (test code = 461) Negative Negative NITRITE UA (BEAKER) (test code = Negative Negative 465) LEUKOCYTE ESTERASE UA (BEAKER) Small Negative A (test code = 466) UROBILINOGEN UA (BEAKER) (test code 0.2 mg/dL 0.2-1.0 = 463) RBC UA (BEAKER) (test code = 519) 1 /HPF WBC UA (BEAKER) (test code = 520) 3 /HPF SQUAMOUS EPITHELIAL (BEAKER) (test 1 /HPF code = 516) HYALINE CASTS (BEAKER) (test code = 7 /LPF 514) SOURCE(BEAKER) (test code = 2795) CREATININE, RANDOM [id number] 14:45:00 Test Item Value Reference Range Interpretation Comments CREATININE URINE (BEAKER) (test 123.0 mg/dL code = 375) Reference Range: No [id number] 14:24:00 Test Item Value Reference Range Interpretation Comments PARTIAL THROMBOPLASTIN TIME 67.3 seconds 22.5-36.0 H (BEAKER) (test code = 760) PROTEIN, RANDOM [id number] 14:23:00 Test Item Value Reference Range Interpretation Comments PROTEIN, URINE (BEAKER) (test code = 20 mg/dL 0-14 H 1569) SODIUM, RANDOM [id number] 14:23:00 Test Item Value Reference Range Interpretation Comments SODIUM URINE (BEAKER) (test code = 26 meq/L 243) Reference Range: No NormalsTROPONIN [id number] 12:25:00 Test Item Value Reference Range Interpretation Comments TROPONIN I (BEAKER) (test code = 2.12 ng/mL 0.00-0.03 HH 397) Troponin I (TnI) levels must be interpreted [...] acidosis, acute neurological disease, and persistent tachyarrhythmia.POCT-GLUCOSE [id number] 10:12:00 Test Item Value Reference Range Interpretation Comments POC-GLUCOSE METER 177 mg/dL 70-110 H : TESTED A T [facility] 6720 (BEAKER) (test code = [facility] [place], 1538) [id number]: Reed Cleaner/Techni rebeca ID = [id number] for CLIFF JACOBO PT/[id number] 07:55:00 Test Item Value Reference Range Interpretation Comments PROTIME (BEAKER) (test code = 14.1 seconds 11.9-14.2 759) INR (BEAKER) (test code = 370) 1.2 <=5.9 PARTIAL THROMBOPLASTIN TIME 55.3 seconds 22.5-36.0 H (BEAKER) (test code = 760) Effective 07/18/2018: PT Reference Range ChangeNew: 11.9-14.2 Previous: 11.7- 14.7RECOMMENDED COUMADIN/WARFARIN INR THERAPY RANGESSTANDARD DOSE: 2.0-3.0 Includes: PROPHYLAXIS for venous thrombosis, systemic embolization; TREATMENT for venous thrombosis and/or pulmonary embolus.HIGH RISK: Target INR is2.5-3.5 for patients wiht mechanical heart valves.[id number] 05:00:00 Test Item Value Reference Range Interpretation Comments PARTIAL THROMBOPLASTIN TIME 132.7 seconds 22.5-36.0 H (BEAKER) (test code = 760) 6 hours after starting heparin infusion and as indicated per sliding scale TROPONIN [id number] 04:38:00 Test Item Value Reference Range Interpretation Comments TROPONIN I (BEAKER) (test code = 2.37 ng/mL 0.00-0.03 397) Troponin I (TnI) levels must be interpreted [...] acute neurological disease, and persistent tachyarrhythmia.BASIC METABOLIC [id number] 04:37:00 Test Item Value Reference Range Interpretation Comments SODIUM (BEAKER) 139 meq/L 136-145 (test code = 381) POTASSIUM (BEAKER) 3.2 meq/L 3.5-5.1 L (test code = 379) CHLORIDE (BEAKER) 98 meq/L 98-107 (test code = 382) CO2 (BEAKER) (test 33 meq/L 22-29 H code = 355) BLOOD UREA NITROGEN 63 mg/dL 7-21 H (BEAKER) (test code = 354) CREATININE (BEAKER) 3.13 mg/dL 0.57-1.25 H (test code = 358) GLUCOSE RANDOM 161 mg/dL 70-105 H (BEAKER) (test code = 652) CALCIUM (BEAKER) 9.4 mg/dL 8.4-10.2 (test code = 697) EGFR (BEAKER) (test 14 mL/min/1.73 ESTIMA ELVA GFR IS code = 1092) sq m NOT ACCURATE CREATININE CLEARANCE IN PREDICTING GLOMERULAR FILTRATION RATE . ESTIMATED GFR I S NOT APPLICABLE FOR DIALYSIS PATIEN TS. CBC (HEMOGRAM ONLY)2018-12-21 04:09:00 Test Item Value Reference Range Interpretation Comments WHITE BLOOD CELL COUNT (BEAKER) 7.1 K/ L 3.5-10.5 (test code = 775) RED BLOOD CELL COUNT (BEAKER) 3.62 M/ L 3.93-5.22 L (test code = 761) HEMOGLOBIN (BEAKER) (test code = 10.9 GM/DL 11.2-15.7 L 410) HEMATOCRIT (BEAKER) (test code = 33.3 % 34.1-44.9 L 411) MEAN CORPUSCULAR VOLUME (BEAKER) 92.0 fL 79.4-94.8 (test code = 753) MEAN CORPUSCULAR HEMOGLOBIN 30.1 pg 25.6-32.2 (BEAKER) (test code = 751) MEAN CORPUSCULAR HEMOGLOBIN CONC 32.7 GM/DL 32.2-35.5 (BEAKER) (test code = 752) RED CELL DISTRIBUTION WIDTH 15.8 % 11.7-14.4 H (BEAKER) (test code = 412) PLATELET COUNT (BEAKER) (test 188 K/CU MM 150-450 code = 756) MEAN PLATELET VOLUME (BEAKER) 10.2 fL 9.4-12.3 (test code = 754) NUCLEATED RED BLOOD CELLS 0 /100 WBC 0-0 (BEAKER) (test code = 413) TROPONIN [id number] 01:13:00 Test Item Value Reference Range Interpretation Comments TROPONIN I (BEAKER) (test code = 2.09 ng/mL 0.00-0.03 HH 397) Troponin I (TnI) levels must be interpreted [...] acidosis, acute neurological disease, and persistent tachyarrhythmia.POCT-GLUCOSE [id number] 00:48:00 Test Item Value Reference Range Interpretation Comments POC-GLUCOSE METER 226 mg/dL 70-110 H : TESTED A T [facility] 6720 (CRISTY) (test code = [facility] [place], 1538) [id number]: Reed Cleaner/Techni rebeca ID = [id number] for TISHA BISHOP RAD, CHEST, 1 VIEW, NON [id number] 21:25:00Reason for exam:->chest painShould this be performed [...] humeral heads are redemonstrated. Signed: Wilson Valdez [facility] Verified Date/Time:12/20/2018 21:25:44 TROPONIN [id number] 21:11:00 Test Item Value Reference Range Interpretation Comments TROPONIN I (CRISTY) (test code = 1.33 ng/mL 0.00-0.03 [facility]) Troponin I (TnI) levels must be interpreted [...] 2018-12-20 21:08:00 Test Item Value Reference Range Interpretation Comments B-TYPE NATRIURETIC PEPTIDE 1084 pg/mL 0-100 H (BEAKER) (test code = 700) COMPREHENSIVE METABOLIC [id number] 21:05:00 Test Item Value Reference Range Interpretation Comments TOTAL PROTEIN 6.5 gm/dL 6.0-8.3 (BEAKER) (test code = 770) ALBUMIN (BEAKER) 3.6 g/dL 3.5-5.0 (test code = 1145) ALKALINE PHOSPHATASE 120 U/L 40-150 (BEAKER) (test code = 346) BILIRUBIN TOTAL 0.5 mg/dL 0.2-1.2 (BEAKER) (test code = 377) SODIUM (BEAKER) (test 137 meq/L 136-145 code = 381) POTASSIUM (BEAKER) 3.3 meq/L 3.5-5.1 L (test code = 379) CHLORIDE (BEAKER) 96 meq/L 98-107 L (test code = 382) CO2 (BEAKER) (test 32 meq/L 22-29 H code = 355) BLOOD UREA NITROGEN 60 mg/dL 7-21 H (BEAKER) (test code = 354) CREATININE (BEAKER) 2.83 mg/dL 0.57-1.25 H (test code = 358) GLUCOSE RANDOM 234 mg/dL 70-105 H (BEAKER) (test code = 652) CALCIUM (BEAKER) 9.3 mg/dL 8.4-10.2 (test code = 697) AST (SGOT) (BEAKER) 14 U/L 5-34 (test code = 353) ALT (SGPT) (BEAKER) 7 U/L 6-55 (test code = 347) EGFR (BEAKER) (test 16 mL/min/1.73 ESTIMA ELVA GFR IS code = 1092) sq m NOT ACCURATE CREATININE CLEARANCE IN PREDICTING GLOMERULAR FILTRATION RATE . ESTIMATED GFR I S NOT APPLICABLE FOR DIALYSIS PATIEN TS. [id number] 21:02:00 Test Item Value Reference Range Interpretation Comments MAGNESIUM (BEAKER) (test code = 2.0 mg/dL 1.6-2.6 627) PT/[id number] 20:58:00 Test Item Value Reference Range Interpretation Comments PROTIME (BEAKER) (test code = 13.3 seconds 11.9-14.2 759) INR (BEAKER) (test code = 370) 1.1 <=5.9 PARTIAL THROMBOPLASTIN TIME 26.3 seconds 22.5-36.0 (BEAKER) (test code = 760) Effective 07/18/2018: PT Reference Range ChangeNew: 11.9-14.2 Previous: 11.7- 14.7RECOMMENDED COUMADIN/WARFARIN INR THERAPY RANGESSTANDARD DOSE: 2.0-3.0 Includes: PROPHYLAXIS for venous thrombosis, systemic embolization; TREATMENT for venous thrombosis and/or pulmonary embolus.HIGH RISK: Target INR is2.5-3.5 for patients wiht mechanical heart valves.CBC W/PLT COUNT & AUTO [id number] 20:46:00 Test Item Value Reference Range Interpretation Comments WHITE BLOOD CELL COUNT (BEAKER) 7.7 K/ L 3.5-10.5 (test code = 775) RED BLOOD CELL COUNT (BEAKER) 3.86 M/ L 3.93-5.22 L (test code = 761) HEMOGLOBIN (BEAKER) (test code = 11.5 GM/DL 11.2-15.7 410) HEMATOCRIT (BEAKER) (test code = 35.0 % 34.1-44.9 411) MEAN CORPUSCULAR VOLUME (BEAKER) 90.7 fL 79.4-94.8 (test code = 753) MEAN CORPUSCULAR HEMOGLOBIN 29.8 pg 25.6-32.2 (BEAKER) (test code = 751) MEAN CORPUSCULAR HEMOGLOBIN CONC 32.9 GM/DL 32.2-35.5 (BEAKER) (test code = 752) RED CELL DISTRIBUTION WIDTH 15.5 % 11.7-14.4 H (BEAKER) (test code = 412) PLATELET COUNT (BEAKER) (test 199 K/CU MM 150-450 code = 756) MEAN PLATELET VOLUME (BEAKER) 9.8 fL 9.4-12.3 (test code = 754) NUCLEATED RED BLOOD CELLS 0 /100 WBC 0-0 (BEAKER) (test code = 413) NEUTROPHILS RELATIVE PERCENT 63 % (BEAKER) (test code = 429) LYMPHOCYTES RELATIVE PERCENT 21 % (BEAKER) (test code = 430) MONOCYTES RELATIVE PERCENT 9 % (BEAKER) (test code = 431) EOSINOPHILS RELATIVE PERCENT 5 % (BEAKER) (test code = 432) BASOPHILS RELATIVE PERCENT 1 % (BEAKER) (test code = 437) NEUTROPHILS ABSOLUTE COUNT 4.83 K/ L 1.56-6.13 (BEAKER) (test code = 670) LYMPHOCYTES ABSOLUTE COUNT 1.63 K/ L 1.18-3.74 (BEAKER) (test code = 414) MONOCYTES ABSOLUTE COUNT (BEAKER) 0.72 K/ L 0.24-0.36 H (test code = 415) EOSINOPHILS ABSOLUTE COUNT 0.41 K/ L 0.04-0.36 H (BEAKER) (test code = 416) BASOPHILS ABSOLUTE COUNT (BEAKER) 0.04 K/ L 0.01-0.08 (test code = 417) IMMATURE GRANULOCYTES-RELATIVE 1 % 0-1 PERCENT (AKER) (test code = 2801) POCT-GLUCOSE [id number] 11:57:00 Test Item Value Reference Range Interpretation Comments POC-GLUCOSE METER 377 mg/dL 70-110 H TESTED AT [place] [address] ([facility]) (test code = [facility] 1538) [address] POCT-GLUCOSE [id number] 09:11:00 Test Item Value Reference Range Interpretation Comments POC-GLUCOSE METER 95 mg/dL 70-110 TESTED AT [place] [address] ([facility]) (test code = [facility] [address] 1538) POCT-GLUCOSE [id number] 06:53:00 Test Item Value Reference Range Interpretation Comments POC-GLUCOSE METER 288 mg/dL 70-110 H TESTED AT [place] [address] ([facility]) (test code = [facility] 1538) [address] COMPREHENSIVE METABOLIC [id number] 01:54:00 Test Item Value Reference Range Interpretation Comments TOTAL PROTEIN 6.1 gm/dL 6.0-8.3 Specimen sligh tly ([facility]) (test code = hemoly zed 770) ALBUMIN (AKER) 3.3 g/dL 3.5-5.0 L Specimen sl ightly (test code = 1145) hemolyzed ALKALINE PHOSPHATASE 91 U/L 40-150 ([facility]) (test code = 346) BILIRUBIN TOTAL 0.5 mg/dL 0.2-1.2 Specimen sli ghtly (BEAKER) (test code = hemoly zed 377) SODIUM (BEAKER) (test 134 meq/L 136-145 L code = 381) POTASSIUM (BEAKER) 4.0 meq/L 3.5-5.1 Specimen slightly (test code = 379) hemolyzed CHLORIDE (BEAKER) 101 meq/L 98-107 (test code = 382) CO2 (BEAKER) (test 21 meq/L 22-29 L code = 355) BLOOD UREA NITROGEN 65 mg/dL 7-21 H (BEAKER) (test code = 354) CREATININE (BEAKER) 2.75 mg/dL 0.57-1.25 H Specimen slightly (test code = 358) hemolyzed GLUCOSE RANDOM 434 mg/dL 70-105 HH (BEAKER) (test code = 652) CALCIUM (BEAKER) 8.4 mg/dL 8.4-10.2 (test code = 697) AST (SGOT) (BEAKER) 18 U/L 5-34 Specimen slightly (test code = 353) hemolyzed ALT (SGPT) (BEAKER) 13 U/L 6-55 Specimen slightly (test code = 347) hemolyzed EGFR (BEAKER) (test 17 mL/min/1.73 ESTIMA ELVA GFR IS code = 1092) sq m NOT ACCURATE CREATININE CLEARANCE IN PREDICTING GLOMERULAR FILTRATION RATE . ESTIMATED GFR I S NOT APPLICABLE FOR DIALYSIS PATIEN TS. [id number] 01:49:00 Test Item Value Reference Range Interpretation Comments ACTIVATED CLOTTING TIME 142 sec Refe rence Range: (BEAKER) (test code = 74-137 seconds, 441) Baseline/TESTED AT [address] [place] [address] B-TYPE NATRIURETIC FACTOR (BNP)2018-11-13 01:42:00 Test Item Value Reference Range Interpretation Comments B-TYPE NATRIURETIC PEPTIDE 1151 pg/mL 0-100 H (BEAKER) (test code = 700) URINALYSIS W/ [id number] 01:40:00 Test Item Value Reference Range Interpretation Comments COLOR (BEAKER) (test code = 470) Light Yellow CLARITY (BEAKER) (test code = Clear 469) SPECIFIC GRAVITY UA (BEAKER) 1.023 1.001-1.035 (test code = 468) PH UA (BEAKER) (test code = 467) 5.5 5.0-8.0 PROTEIN UA (BEAKER) (test code = 20 mg/dL Negative A 464) GLUCOSE UA (BEAKER) (test code = >1000 mg/dL Negative A 365) KETONES UA (BEAKER) (test code = 10 mg/dL Negative A 371) BILIRUBIN UA (BEAKER) (test code Negative Negative = 462) BLOOD UA (BEAKER) (test code = Small Negative A 461) NITRITE UA (BEAKER) (test code = Negative Negative 465) LEUKOCYTE ESTERASE UA (BEAKER) Negative Negative (test code = 466) UROBILINOGEN UA (BEAKER) (test 0.2 mg/dL 0.2-1.0 code = 463) RBC UA (BEAKER) (test code = 2 /HPF 519) WBC UA (BEAKER) (test code = 1 /HPF 520) BACTERIA (BEAKER) (test code = Rare 517) SQUAMOUS EPITHELIAL (BEAKER) 2 /HPF (test code = 516) SOURCE(BEAKER) (test code = 2795) [id number] 01:36:00 Test Item Value Reference Range Interpretation Comments MAGNESIUM (BEAKER) 2.0 mg/dL 1.6-2.6 Specimen slightly (test code = 627) hemolyzed [id number] 01:36:00 Test Item Value Reference Range Interpretation Comments PHOSPHORUS (BEAKER) 4.4 mg/dL 2.3-4.7 Specimen slightly (test code = 604) hemolyzed CBC W/PLT COUNT & AUTO [id number] 01:24:00 Test Item Value Reference Range Interpretation Comments WHITE BLOOD CELL COUNT (BEAKER) 7.4 K/ L 3.5-10.5 (test code = 775) RED BLOOD CELL COUNT (BEAKER) 4.21 M/ L 3.93-5.22 (test code = 761) HEMOGLOBIN (BEAKER) (test code = 12.4 GM/DL 11.2-15.7 410) HEMATOCRIT (BEAKER) (test code = 38.7 % 34.1-44.9 411) MEAN CORPUSCULAR VOLUME (BEAKER) 91.9 fL 79.4-94.8 (test code = 753) MEAN CORPUSCULAR HEMOGLOBIN 29.5 pg 25.6-32.2 (BEAKER) (test code = 751) MEAN CORPUSCULAR HEMOGLOBIN CONC 32.0 GM/DL 32.2-35.5 L (BEAKER) (test code = 752) RED CELL DISTRIBUTION WIDTH 14.6 % 11.7-14.4 H (BEAKER) (test code = 412) PLATELET COUNT (BEAKER) (test 174 K/CU MM 150-450 code = 756) MEAN PLATELET VOLUME (BEAKER) 11.0 fL 9.4-12.3 (test code = 754) NUCLEATED RED BLOOD CELLS 0 /100 WBC 0-0 (BEAKER) (test code = 413) NEUTROPHILS RELATIVE PERCENT 87 % (BEAKER) (test code = 429) LYMPHOCYTES RELATIVE PERCENT 12 % (BEAKER) (test code = 430) MONOCYTES RELATIVE PERCENT 1 % (BEAKER) (test code = 431) EOSINOPHILS RELATIVE PERCENT 0 % (BEAKER) (test code = 432) BASOPHILS RELATIVE PERCENT 0 % (BEAKER) (test code = 437) NEUTROPHILS ABSOLUTE COUNT 6.42 K/ L 1.56-6.13 H (BEAKER) (test code = 670) LYMPHOCYTES ABSOLUTE COUNT 0.85 K/ L 1.18-3.74 L (BEAKER) (test code = 414) MONOCYTES ABSOLUTE COUNT (BEAKER) 0.04 K/ L 0.24-0.36 L (test code = 415) EOSINOPHILS ABSOLUTE COUNT 0.00 K/ L 0.04-0.36 L (BEAKER) (test code = 416) BASOPHILS ABSOLUTE COUNT (BEAKER) 0.01 K/ L 0.01-0.08 (test code = 417) IMMATURE GRANULOCYTES-RELATIVE 1 % 0-1 PERCENT (BEAKER) (test code = 2801) CALCIUM, [id number] 01:16:00 Test Item Value Reference Range Interpretation Comments CALCIUM IONIZED (BEAKER) (test 1.10 mmol/L 1.12-1.27 L code = 698) PH, BLOOD (BEAKER) (test code = 7.32 1810) [id number] 23:34:00 Test Item Value Reference Range Interpretation Comments ACTIVATED CLOTTING TIME 164 sec Refe rence Range: (BEAKER) (test code = 74-137 seconds, 441) Baseline/TESTED AT [facility] [address] [facility] [address] [id number] 21:52:00 Test Item Value Reference Range Interpretation Comments ACTIVATED CLOTTING TIME 191 sec Refe rence Range: (CRISTY) (test code = 74-137 seconds, 441) Baseline/TESTED AT [address] [address] POCT-GLUCOSE [id number] 21:33:00 Test Item Value Reference Range Interpretation Comments POC-GLUCOSE METER 294 mg/dL 70-110 H TESTED AT [place] [address] ([facility] (test code = [facility] rBandan [facility] 1538) [address] C. DIFFICILE GDH [id number] 20:08:00 Test Item Value Reference Range Interpretation Comments CDT TOXIN (test code Negative Negative = [id number]) CDT GDH ANTIGEN Positive Negative A C. difficile present but (test code = toxin not detec elva. [id number]) Indicates colon ization with non-toxige alexis strain or level of tox in below detectable leve ls. No need for enteri c isolation. Sandoval atment is rarely needed ( only when strong clinical suspicion for Clostridium difficile infection) Testing performed by [employer] Rapid Cassette Assay. For GDH, published sensitivity of the assay is 98.7% compared to cytotoxicity testing. For Toxin AB, published sensitivity is 87.8% and specificity 99.4% compared to cytotoxicity testing.Verification of kit performance was done by the [facility] Microbiology Lab prior to clinical use.[id number] 17:58:00 Test Item Value Reference Range Interpretation Comments ACTIVATED CLOTTING TIME 290 sec Refe rence Range: (CRISTY) (test code = 74-137 seconds, 441) Baseline/TESTED AT [address] [address] [id number] 16:57:00 Test Item Value Reference Range Interpretation Comments ACTIVATED CLOTTING TIME 263 sec Refe rence Range: (BEAKER) (test code = 74-137 seconds, 441) Baseline/TESTED AT [address] [address] 0 [id number] 16:20:00 Test Item Value Reference Range Interpretation Comments ACTIVATED CLOTTING TIME 252 sec Refe rence Range: (BEOJ) (test code = 74-137 seconds, 441) Baseline/TESTED AT [address] [address] 0 PET, CARDIAC PERFUSION MULTIPLE STUDIES, REST AND [id number] 15:26:00 Reason for exam:->eval chest pain, ischemiaFINAL REPORT PROCEDURE: MYOCARDIAL PERFUSION PET IMAGING (Rest/Stress)CPT CODE: 54545 INDICATION: Evaluate extent of known CAD, chest [...] rest.Symptoms: Chest discomfort, nausea, fatigue (Treatment was [id number] IV).Perfusion: There is an absence of perfusionin [...] MDReport Verified Date/Time: 11/12/2018 15:26:40 Reading Location: [address] Reading Room APTT 2018-11-12 10:22:00 Test Item Value Reference Range Interpretation Comments PARTIAL THROMBOPLASTIN TIME 90.3 seconds 22.5-36.0 H ([facility]) (test code = 760) HEMOGLOBIN [id number] 09:39:00 Test Item Value Reference Range Interpretation Comments HEMOGLOBIN A1C ([facility]) (test code = 12.0 % 4.3-6.1 H 368) POCT-GLUCOSE [id number] 08:37:00 Test Item Value Reference Range Interpretation Comments POC-GLUCOSE METER 281 mg/dL 70-110 H TESTED AT [facility] 67[address] ([facility]) (test code = [place] 1538) [id number] 05:54:00 Test Item Value Reference Range Interpretation Comments PARTIAL THROMBOPLASTIN TIME 135.4 seconds 22.5-36.0 H ([facility]) (test code = 760) CALCIUM, [id number] 05:31:00 Test Item Value Reference Range Interpretation Comments CALCIUM IONIZED (AKER) (test 1.10 mmol/L 1.12-1.27 L code = 698) PH, BLOOD ([facility]) (test code = 7.39 1810) COMPREHENSIVE METABOLIC [id number] 04:56:00 Test Item Value Reference Range Interpretation Comments TOTAL PROTEIN 6.2 gm/dL 6.0-8.3 Specimen sligh tly (BEAKER) (test code = hemoly zed 770) ALBUMIN (BEAKER) 3.3 g/dL 3.5-5.0 L Specimen sl ightly (test code = 1145) hemolyzed ALKALINE PHOSPHATASE 98 U/L 40-150 (BEAKER) (test code = 346) BILIRUBIN TOTAL 0.5 mg/dL 0.2-1.2 Specimen sli ghtly (BEAKER) (test code = hemoly zed 377) SODIUM (BEAKER) (test 134 meq/L 136-145 L code = 381) POTASSIUM (BEAKER) 3.4 meq/L 3.5-5.1 L Specimen slightly (test code = 379) hemolyzed CHLORIDE (BEAKER) 97 meq/L 98-107 L (test code = 382) CO2 (BEAKER) (test 25 meq/L 22-29 code = 355) BLOOD UREA NITROGEN 80 mg/dL 7-21 H (BEAKER) (test code = 354) CREATININE (BEAKER) 3.15 mg/dL 0.57-1.25 H Specimen slightly (test code = 358) hemolyzed GLUCOSE RANDOM 221 mg/dL 70-105 H (BEAKER) (test code = 652) CALCIUM (BEAKER) 8.9 mg/dL 8.4-10.2 (test code = 697) AST (SGOT) (BEAKER) 17 U/L 5-34 Specimen slightly (test code = 353) hemolyzed ALT (SGPT) (BEAKER) 10 U/L 6-55 Specimen slightly (test code = 347) hemolyzed EGFR (BEAKER) (test 14 mL/min/1.73 ESTIMA ELVA GFR IS code = 1092) sq m NOT ACCURATE CREATININE CLEARANCE IN PREDICTING GLOMERULAR FILTRATION RATE . ESTIMATED GFR I S NOT APPLICABLE FOR DIALYSIS PATIEN TS. [id number] 04:52:00 Test Item Value Reference Range Interpretation Comments MAGNESIUM (BEAKER) 2.0 mg/dL 1.6-2.6 Specimen slightly (test code = 627) hemolyzed [id number] 04:52:00 Test Item Value Reference Range Interpretation Comments PHOSPHORUS (BEAKER) 3.5 mg/dL 2.3-4.7 Specimen slightly (test code = 604) hemolyzed LIPID [id number] 04:52:00 Test Item Value Reference Range Interpretation Comments TRIGLYCERIDES (BEAKER) 133 mg/dL Speci men slightly (test code = 540) hemolyzed CHOLESTEROL (BEAKER) 117 mg/dL Specime n slightly (test code = 631) hemolyzed HDL CHOLESTEROL (BEAKER) 33 mg/dL (test code = 976) LDL CHOLESTEROL 57 mg/dL CALCULATED (BEAKER) (test code = 633) Triglyceride Reference Range: Low Risk <150 Borderline 150-199 High Risk 200-499 Very High Risk >=500Cholesterol Reference Range: Low Risk <200 Borderline 200-239 High Risk >240HDL Cholesterol Reference Range: Low Risk >=60 High Risk <40LDL Cholesterol Reference Range: Optimal <100 Near Optimal 100-129 Borderline 130-159 High 160-189 Very High >=190CBC W/PLT COUNT & AUTO [id number] 04:33:00 Test Item Value Reference Range Interpretation Comments WHITE BLOOD CELL COUNT (BEAKER) 8.2 K/ L 3.5-10.5 (test code = 775) RED BLOOD CELL COUNT (BEAKER) 4.23 M/ L 3.93-5.22 (test code = 761) HEMOGLOBIN (BEAKER) (test code = 12.7 GM/DL 11.2-15.7 410) HEMATOCRIT (BEAKER) (test code = 38.3 % 34.1-44.9 411) MEAN CORPUSCULAR VOLUME (BEAKER) 90.5 fL 79.4-94.8 (test code = 753) MEAN CORPUSCULAR HEMOGLOBIN 30.0 pg 25.6-32.2 (BEAKER) (test code = 751) MEAN CORPUSCULAR HEMOGLOBIN CONC 33.2 GM/DL 32.2-35.5 (BEAKER) (test code = 752) RED CELL DISTRIBUTION WIDTH 14.7 % 11.7-14.4 H (BEAKER) (test code = 412) PLATELET COUNT (BEAKER) (test 206 K/CU MM 150-450 code = 756) MEAN PLATELET VOLUME (BEAKER) 11.0 fL 9.4-12.3 (test code = 754) NUCLEATED RED BLOOD CELLS 0 /100 WBC 0-0 (BEAKER) (test code = 413) NEUTROPHILS RELATIVE PERCENT 60 % (BEAKER) (test code = 429) LYMPHOCYTES RELATIVE PERCENT 29 % (BEAKER) (test code = 430) MONOCYTES RELATIVE PERCENT 8 % (BEAKER) (test code = 431) EOSINOPHILS RELATIVE PERCENT 2 % (BEAKER) (test code = 432) BASOPHILS RELATIVE PERCENT 0 % (BEAKER) (test code = 437) NEUTROPHILS ABSOLUTE COUNT 4.96 K/ L 1.56-6.13 (BEAKER) (test code = 670) LYMPHOCYTES ABSOLUTE COUNT 2.35 K/ L 1.18-3.74 (BEAKER) (test code = 414) MONOCYTES ABSOLUTE COUNT (BEAKER) 0.65 K/ L 0.24-0.36 H (test code = 415) EOSINOPHILS ABSOLUTE COUNT 0.18 K/ L 0.04-0.36 (BEAKER) (test code = 416) BASOPHILS ABSOLUTE COUNT (BEAKER) 0.03 K/ L 0.01-0.08 (test code = 417) IMMATURE GRANULOCYTES-RELATIVE 0 % 0-1 PERCENT (BEAKER) (test code = 2801) [id number] 22:22:00 Test Item Value Reference Range Interpretation Comments PARTIAL THROMBOPLASTIN TIME 86.6 seconds 22.5-36.0 H (BEAKER) (test code = 760) POCT-GLUCOSE [id number] 17:14:00 Test Item Value Reference Range Interpretation Comments POC-GLUCOSE METER 158 mg/dL 70-110 H TESTED AT [place] [address] ([facility]) (test code = [facility] 1538) [address] [id number] 15:48:00 Test Item Value Reference Range Interpretation Comments PARTIAL THROMBOPLASTIN TIME 64.4 seconds 22.5-36.0 H ([facility]) (test code = 760) POCT-GLUCOSE [id number] 12:41:00 Test Item Value Reference Range Interpretation Comments POC-GLUCOSE METER 275 mg/dL 70-110 H TESTED AT [place] [address] ([facility]) (test code = [place] [address]288) [address] RAD, CHEST, 1 VIEW, NON [id number] 09:33:00Reason for exam:->chest painShould this be performed at the bedside?->YesFINAL REPORT Comparison: 08/14/2018 TECHNIQUE: Single view of the chest FINDINGS: Trace bilateral pleural effusions. Lungs otherwise grossly clear. Cardiac silhouette is prominent. Aortic calcifications are seen. No acute skeletal abnormality. Signed: Terry Sauereport Verified Date/Time: 11/11/2018 09:33:09 Reading Location: [facility] C013T Transitional Reading Room Electr onically signed by: TERRY SAUER M.D. on 11/11/2018 09:33 AMQUENTIN Tipton 2018-11-11 09:11:00 Test Item Value Reference Range Interpretation Comments TROPONIN I (BEAKER) (test code = 0.38 ng/mL 0.00-0.03 397) Troponin I (TnI) levels must be interpreted [...] acidosis, acute neurological disease, and persistent tachyarrhythmia.POCT-GLUCOSE [id number] 08:57:00 Test Item Value Reference Range Interpretation Comments POC-GLUCOSE METER 321 mg/dL 70-110 H Notified R Colin BUENO/TESTED (JEEVANAKER) (test code = AT [facility] [address] [facility] 1538) [facility] [address] 0 TROPONIN [id number] 08:29:00 Test Item Value Reference Range Interpretation Comments TROPONIN I (BEAKER) (test code = 0.60 ng/mL 0.00-0.03 397) Troponin I (TnI) levels must be interpreted [...] acute neurological disease, and persistent tachyarrhythmia.BASIC METABOLIC [id number] 08:26:00 Test Item Value Reference Range Interpretation Comments SODIUM (BEAKER) 136 meq/L 136-145 (test code = 381) POTASSIUM (BEAKER) 3.8 meq/L 3.5-5.1 Specimen slightly (test code = 379) hemolyzed CHLORIDE (BEAKER) 96 meq/L 98-107 L (test code = 382) CO2 (BEAKER) (test 30 meq/L 22-29 H code = 355) BLOOD UREA NITROGEN 70 mg/dL 7-21 H (BEAKER) (test code = 354) CREATININE (BEAKER) 3.15 mg/dL 0.57-1.25 H Specimen slightly (test code = 358) hemolyzed GLUCOSE RANDOM 356 mg/dL 70-105 H (BEAKER) (test code = 652) CALCIUM (BEAKER) 9.5 mg/dL 8.4-10.2 (test code = 697) EGFR (BEAKER) (test 14 mL/min/1.73 ESTIMA ELVA GFR IS code = 1092) sq m NOT ACCURATE CREATININE CLEARANCE IN PREDICTING GLOMERULAR FILTRATION RATE . ESTIMATED GFR I S NOT APPLICABLE FOR DIALYSIS PATIEN TS. [id number] 08:22:00 Test Item Value Reference Range Interpretation Comments MAGNESIUM (BEAKER) 2.2 mg/dL 1.6-2.6 Specimen slightly (test code = 627) hemolyzed HEPATIC FUNCTION [id number] 08:22:00 Test Item Value Reference Range Interpretation Comments TOTAL PROTEIN (BEAKER) 7.3 gm/dL 6.0-8.3 Speci men slightly (test code = 770) hemolyzed ALBUMIN (BEAKER) (test 3.9 g/dL 3.5-5.0 Speci men slightly code = 1145) hemolyzed BILIRUBIN TOTAL 0.5 mg/dL 0.2-1.2 Specimen sli ghtly (BEAKER) (test code = hemoly zed 377) BILIRUBIN DIRECT 0.2 mg/dL 0.1-0.5 Specimen sl ightly (BEAKER) (test code = hemoly zed 706) ALKALINE PHOSPHATASE 129 U/L 40-150 (BEAKER) (test code = 346) AST (SGOT) (BEAKER) 18 U/L 5-34 Specimen slightly (test code = 353) hemolyzed ALT (SGPT) (BEAKER) 11 U/L 6-55 Specimen slightly (test code = 347) hemolyzed B-TYPE NATRIURETIC FACTOR (BNP)2018-11-11 08:22:00 Test Item Value Reference Range Interpretation Comments B-TYPE NATRIURETIC PEPTIDE (BEAKER) 344 pg/mL 0-100 H (test code = 700) CBC W/PLT COUNT & AUTO [id number] 07:04:00 Test Item Value Reference Range Interpretation Comments WHITE BLOOD CELL COUNT (BEAKER) 6.0 K/ L 3.5-10.5 (test code = 775) RED BLOOD CELL COUNT (BEAKER) 4.74 M/ L 3.93-5.22 (test code = 761) HEMOGLOBIN (BEAKER) (test code = 14.0 GM/DL 11.2-15.7 410) HEMATOCRIT (BEAKER) (test code = 43.4 % 34.1-44.9 411) MEAN CORPUSCULAR VOLUME (BEAKER) 91.6 fL 79.4-94.8 (test code = 753) MEAN CORPUSCULAR HEMOGLOBIN 29.5 pg 25.6-32.2 (BEAKER) (test code = 751) MEAN CORPUSCULAR HEMOGLOBIN CONC 32.3 GM/DL 32.2-35.5 (BEAKER) (test code = 752) RED CELL DISTRIBUTION WIDTH 14.6 % 11.7-14.4 H (BEAKER) (test code = 412) PLATELET COUNT (BEAKER) (test 202 K/CU MM 150-450 code = 756) MEAN PLATELET VOLUME (BEAKER) 11.3 fL 9.4-12.3 (test code = 754) NUCLEATED RED BLOOD CELLS 0 /100 WBC 0-0 (BEAKER) (test code = 413) NEUTROPHILS RELATIVE PERCENT 56 % (BEAKER) (test code = 429) LYMPHOCYTES RELATIVE PERCENT 32 % (BEAKER) (test code = 430) MONOCYTES RELATIVE PERCENT 9 % (BEAKER) (test code = 431) EOSINOPHILS RELATIVE PERCENT 3 % (BEAKER) (test code = 432) BASOPHILS RELATIVE PERCENT 0 % (BEAKER) (test code = 437) NEUTROPHILS ABSOLUTE COUNT 3.38 K/ L 1.56-6.13 (BEAKER) (test code = 670) LYMPHOCYTES ABSOLUTE COUNT 1.90 K/ L 1.18-3.74 (BEAKER) (test code = 414) MONOCYTES ABSOLUTE COUNT (BEAKER) 0.55 K/ L 0.24-0.36 H (test code = 415) EOSINOPHILS ABSOLUTE COUNT 0.15 K/ L 0.04-0.36 (BEAKER) (test code = 416) BASOPHILS ABSOLUTE COUNT (BEAKER) 0.02 K/ L 0.01-0.08 (test code = 417) IMMATURE GRANULOCYTES-RELATIVE 1 % 0-1 PERCENT (BEAKER) (test code = 2801) TSH/FREE T4 IF [id number] 06:39:00 Test Item Value Reference Range Interpretation Comments THYROID STIMULATING HORMONE 1.17 uIU/mL 0.35-4.94 ([facility]) (test code = 772) [id number] 05:38:00 Test Item Value Reference Range Interpretation Comments PROTIME ([facility]) (test code = 14.0 seconds 11.9-14.2 759) INR ([facility]) (test code = 370) 1.1 <=5.9 PARTIAL THROMBOPLASTIN TIME 37.2 seconds 22.5-36.0 H ([facility]) (test code = 760) Effective 07/18/2018: PT Reference Range ChangeNew: 11.9-14.2 Previous: 11.7- 14.7RECOMMENDED COUMADIN/WARFARIN INR THERAPY RANGESSTANDARD DOSE: 2.0-3.0 Includes: PROPHYLAXIS for venous thrombosis, systemic embolization; TREATMENT for venous thrombosis and/or pulmonary embolus.HIGH RISK: Target INR is2.5-3.5 for patients wiht mechanical heart valves.POCT-GLUCOSE [id number] 12:11:00 Test Item Value Reference Range Interpretation Comments POC-GLUCOSE METER 111 mg/dL 70-110 H TESTED AT [facility] 6720 ([facility]) (test code = [place] 1538) [id number] CBC W/PLT COUNT & AUTO [id number] 10:11:00 Test Item Value Reference Range Interpretation Comments WHITE BLOOD CELL COUNT 4.7 K/ L 3.5-10.5 ([facility]) (test code = 775) RED BLOOD CELL COUNT 3.14 M/ L 3.93-5.22 L (AKER) (test code = 761) HEMOGLOBIN ([facility]) 10.1 GM/DL 11.2-15.7 L (test code = 410) HEMATOCRIT ([facility]) 34.0 % 34.1-44.9 L (test code = 411) MEAN CORPUSCULAR 108.3 fL 79.4-94.8 H Discordant results VOLUME ([facility]) (test compar ed to previous code = 753) result; clinica l correlation required. MEAN CORPUSCULAR 32.2 pg 25.6-32.2 HEMOGLOBIN (BEAKER) (test code = 751) MEAN CORPUSCULAR 29.7 GM/DL 32.2-35.5 L HEMOGLOBIN CONC (BEAKER) (test code = 752) RED CELL DISTRIBUTION 18.5 % 11.7-14.4 H WIDTH (BEAKER) (test code = 412) PLATELET COUNT 186 K/CU MM 150-450 (BEAKER) (test code = 756) MEAN PLATELET VOLUME 9.5 fL 9.4-12.3 (BEAKER) (test code = 754) NUCLEATED RED BLOOD 0 /100 WBC 0-0 CELLS (BEAKER) (test code = 413) NEUTROPHILS RELATIVE 67 % PERCENT (BEAKER) (test code = 429) LYMPHOCYTES RELATIVE 14 % PERCENT (BEAKER) (test code = 430) MONOCYTES RELATIVE 14 % PERCENT (BEAKER) (test code = 431) EOSINOPHILS RELATIVE 3 % PERCENT (BEAKER) (test code = 432) BASOPHILS RELATIVE 1 % PERCENT (BEAKER) (test code = 437) NEUTROPHILS ABSOLUTE 3.16 K/ L 1.56-6.13 COUNT (BEAKER) (test code = 670) LYMPHOCYTES ABSOLUTE 0.67 K/ L 1.18-3.74 L COUNT (BEAKER) (test code = 414) MONOCYTES ABSOLUTE 0.65 K/ L 0.24-0.36 H COUNT (BEAKER) (test code = 415) EOSINOPHILS ABSOLUTE 0.15 K/ L 0.04-0.36 COUNT (BEAKER) (test code = 416) BASOPHILS ABSOLUTE 0.03 K/ L 0.01-0.08 COUNT (BEAKER) (test code = 417) IMMATURE 1 % 0-1 GRANULOCYTES-RELATIVE PERCENT (BEAKER) (test code = 2801) POCT-GLUCOSE [id number] 07:46:00 Test Item Value Reference Range Interpretation Comments POC-GLUCOSE METER 79 mg/dL 70-110 TESTED AT [facility] 6720 (BEAKER) (test code = [place] [address] 1538) BASIC METABOLIC [id number] 06:22:00 Test Item Value Reference Range Interpretation Comments SODIUM (BEAKER) 136 meq/L 136-145 (test code = 381) POTASSIUM (BEAKER) 4.0 meq/L 3.5-5.1 (test code = 379) CHLORIDE (BEAKER) 100 meq/L 98-107 (test code = 382) CO2 (BEAKER) (test 26 meq/L 22-29 code = 355) BLOOD UREA NITROGEN 55 mg/dL 7-21 H (BEAKER) (test code = 354) CREATININE (BEAKER) 2.87 mg/dL 0.57-1.25 H (test code = 358) GLUCOSE RANDOM 79 mg/dL 70-105 (BEAKER) (test code = 652) CALCIUM (BEAKER) 8.6 mg/dL 8.4-10.2 (test code = 697) EGFR (BEAKER) (test 16 mL/min/1.73 ESTIMA ELVA GFR IS code = 1092) sq m NOT ACCURATE CREATININE CLEARANCE IN PREDICTING GLOMERULAR FILTRATION RATE . ESTIMATED GFR I S NOT APPLICABLE FOR DIALYSIS PATIEN TS. POCT-GLUCOSE [id number] 20:51:00 Test Item Value Reference Range Interpretation Comments POC-GLUCOSE METER 176 mg/dL 70-110 H TESTED AT [place] [address] ([facility]) (test code = [facility] 1538) [id number] POCT-GLUCOSE [id number] 18:25:00 Test Item Value Reference Range Interpretation Comments POC-GLUCOSE METER 84 mg/dL 70-110 TESTED AT [place] [address] ([facility]) (test code = [facility] [address] 1538) POCT-GLUCOSE [id number] 12:54:00 Test Item Value Reference Range Interpretation Comments POC-GLUCOSE METER 111 mg/dL 70-110 H TESTED AT [place] [address] ([facility]) (test code = [facility] 1538) [address] POCT-GLUCOSE [id number] 08:25:00 Test Item Value Reference Range Interpretation Comments POC-GLUCOSE METER 105 mg/dL 70-110 TESTED AT [place] [address] ([facility] (test code = [facility] 1538) [address] BASIC METABOLIC [id number] 06:26:00 Test Item Value Reference Range Interpretation Comments SODIUM (BEAKER) 137 meq/L 136-145 (test code = 381) POTASSIUM (BEAKER) 3.9 meq/L 3.5-5.1 (test code = 379) CHLORIDE (BEAKER) 100 meq/L 98-107 (test code = 382) CO2 (BEAKER) (test 28 meq/L 22-29 code = 355) BLOOD UREA NITROGEN 53 mg/dL 7-21 H ([facility]) (test code = 354) CREATININE ([facility]) 3.07 mg/dL 0.57-1.25 H (test code = 358) GLUCOSE RANDOM 71 mg/dL 70-105 ([facility]) (test code = 652) CALCIUM ([facility]) 8.6 mg/dL 8.4-10.2 (test code = 697) EGFR ([facility]) (test 15 mL/min/1.73 ESTIMA ELVA GFR IS code = 1092) sq m NOT ACCURATE CREATININE CLEARANCE IN PREDICTING GLOMERULAR FILTRATION RATE . ESTIMATED GFR I S NOT APPLICABLE FOR DIALYSIS PATIEN TS. POCT-GLUCOSE [id number] 04:25:00 Test Item Value Reference Range Interpretation Comments POC-GLUCOSE METER 81 mg/dL 70-110 TESTED AT [place] [address] ([facility]) (test code = [facility] [address] 1538) POCT-GLUCOSE [id number] 21:58:00 Test Item Value Reference Range Interpretation Comments POC-GLUCOSE METER 164 mg/dL 70-110 H TESTED AT [place] [address] ([facility]) (test code = [facility] 1538) [id number] POCT-GLUCOSE [id number] 18:38:00 Test Item Value Reference Range Interpretation Comments POC-GLUCOSE METER 98 mg/dL 70-110 TESTED AT [place] [address] ([facility]) (test code = [facility] [address] 1538) POCT-GLUCOSE [id number] 13:14:00 Test Item Value Reference Range Interpretation Comments POC-GLUCOSE METER 105 mg/dL 70-110 TESTED AT [place] [address] ([facility]) (test code = [facility] 1538) [address] POCT-GLUCOSE [id number] 08:12:00 Test Item Value Reference Range Interpretation Comments POC-GLUCOSE METER 115 mg/dL 70-110 H TESTED AT [place] [address] ([facility]) (test code = [facility] 1538) [id number] BASIC METABOLIC [id number] 07:37:00 Test Item Value Reference Range Interpretation Comments SODIUM ([facility]) 136 meq/L 136-145 (test code = 381) POTASSIUM ([facility]) 3.7 meq/L 3.5-5.1 (test code = 379) CHLORIDE (BEAKER) 98 meq/L 98-107 (test code = 382) CO2 (BEAKER) (test 28 meq/L 22-29 code = 355) BLOOD UREA NITROGEN 54 mg/dL 7-21 H (BEAKER) (test code = 354) CREATININE (BEAKER) 3.37 mg/dL 0.57-1.25 H (test code = 358) GLUCOSE RANDOM 85 mg/dL 70-105 (BEAKER) (test code = 652) CALCIUM (BEAKER) 8.5 mg/dL 8.4-10.2 (test code = 697) EGFR [facility] (test 13 mL/min/1.73 ESTIMA ELVA GFR IS code = 1092) sq m NOT ACCURATE CREATININE CLEARANCE IN PREDICTING GLOMERULAR FILTRATION RATE . ESTIMATED GFR I S NOT APPLICABLE FOR DIALYSIS PATIEN TS. POCT-GLUCOSE [id number] 07:22:00 Test Item Value Reference Range Interpretation Comments POC-GLUCOSE METER 128 mg/dL 70-110 H TESTED AT [place] [address] ([facility]) (test code = [facility] [employer] [facility] 1538) [id number] POCT-GLUCOSE [id number] 04:05:00 Test Item Value Reference Range Interpretation Comments POC-GLUCOSE METER 95 mg/dL 70-110 TESTED AT [place] [address] ([facility]) (test code = [facility] [employer] [facility] [address] 1538) POCT-GLUCOSE [id number] 04:05:00 Test Item Value Reference Range Interpretation Comments POC-GLUCOSE METER 68 mg/dL 70-110 L TESTED AT [place] [address] ([facility]) (test code = [facility] [employer] [facility] [id number] 1538) POCT-GLUCOSE [id number] 04:05:00 Test Item Value Reference Range Interpretation Comments POC-GLUCOSE METER 52 mg/dL 70-110 L TESTED AT [place] [address] ([facility]) (test code = [facility] [employer] [facility] [id number] 1538) POCT-GLUCOSE [id number] 22:26:00 Test Item Value Reference Range Interpretation Comments POC-GLUCOSE METER 132 mg/dL 70-110 H TESTED AT [place] [address] ([facility]) (test code = [facility] [employer] [facility] 1538) [id number] POCT-GLUCOSE [id number] 19:58:00 Test Item Value Reference Range Interpretation Comments POC-GLUCOSE METER 134 mg/dL 70-110 H TESTED AT [facility] 6720 (BEAKER) (test code = [place] 1538) [id number] POCT-GLUCOSE [id number] 13:11:00 Test Item Value Reference Range Interpretation Comments POC-GLUCOSE METER 148 mg/dL 70-110 H TESTED AT [facility] 6720 (BEAKER) (test code = JODY [place] 1538) [address] POCT-GLUCOSE [id number] 12:30:00 Test Item Value Reference Range Interpretation Comments POC-GLUCOSE METER 183 mg/dL 70-110 H TESTED AT [place] [id number] (BEAKER) (test code = JODY Gipson [facility] 1538) [address] CBC W/PLT COUNT & AUTO [id number] 10:37:00 Test Item Value Reference Range Interpretation Comments WHITE BLOOD CELL COUNT (BEAKER) 7.4 K/ L 3.5-10.5 (test code = 775) RED BLOOD CELL COUNT (BEAKER) 3.03 M/ L 3.93-5.22 L (test code = 761) HEMOGLOBIN (BEAKER) (test code = 9.5 GM/DL 11.2-15.7 L 410) HEMATOCRIT (BEAKER) (test code = 31.4 % 34.1-44.9 L 411) MEAN CORPUSCULAR VOLUME (BEAKER) 103.6 fL 79.4-94.8 H (test code = 753) MEAN CORPUSCULAR HEMOGLOBIN 31.4 pg 25.6-32.2 (BEAKER) (test code = 751) MEAN CORPUSCULAR HEMOGLOBIN CONC 30.3 GM/DL 32.2-35.5 L (BEAKER) (test code = 752) RED CELL DISTRIBUTION WIDTH 18.8 % 11.7-14.4 H (BEAKER) (test code = 412) PLATELET COUNT (BEAKER) (test 205 K/CU MM 150-450 code = 756) MEAN PLATELET VOLUME (BEAKER) 9.8 fL 9.4-12.3 (test code = 754) NUCLEATED RED BLOOD CELLS 0 /100 WBC 0-0 (BEAKER) (test code = 413) NEUTROPHILS RELATIVE PERCENT 70 % (BEAKER) (test code = 429) LYMPHOCYTES RELATIVE PERCENT 11 % (BEAKER) (test code = 430) MONOCYTES RELATIVE PERCENT 15 % (BEAKER) (test code = 431) EOSINOPHILS RELATIVE PERCENT 2 % (BEAKER) (test code = 432) BASOPHILS RELATIVE PERCENT 0 % (BEAKER) (test code = 437) NEUTROPHILS ABSOLUTE COUNT 5.19 K/ L 1.56-6.13 (BEAKER) (test code = 670) LYMPHOCYTES ABSOLUTE COUNT 0.82 K/ L 1.18-3.74 L (BEAKER) (test code = 414) MONOCYTES ABSOLUTE COUNT (BEAKER) 1.13 K/ L 0.24-0.36 H (test code = 415) EOSINOPHILS ABSOLUTE COUNT 0.14 K/ L 0.04-0.36 (BEAKER) (test code = 416) BASOPHILS ABSOLUTE COUNT (BEAKER) 0.03 K/ L 0.01-0.08 (test code = 417) IMMATURE GRANULOCYTES-RELATIVE 1 % 0-1 PERCENT (BEAKER) (test code = 2801) POCT-GLUCOSE [id number] 08:09:00 Test Item Value Reference Range Interpretation Comments POC-GLUCOSE METER 99 mg/dL 70-110 TESTED AT [facility] 6720 (BEAKER) (test code = [facility] [address] 1538) BASIC METABOLIC [id number] 05:41:00 Test Item Value Reference Range Interpretation Comments SODIUM (BEAKER) 136 meq/L 136-145 (test code = 381) POTASSIUM (BEAKER) 4.1 meq/L 3.5-5.1 (test code = 379) CHLORIDE (BEAKER) 99 meq/L 98-107 (test code = 382) CO2 (BEAKER) (test 29 meq/L 22-29 code = 355) BLOOD UREA NITROGEN 46 mg/dL 7-21 H (BEAKER) (test code = 354) CREATININE (BEAKER) 3.01 mg/dL 0.57-1.25 H (test code = 358) GLUCOSE RANDOM 107 mg/dL 70-105 H (BEAKER) (test code = 652) CALCIUM (BEAKER) 8.5 mg/dL 8.4-10.2 (test code = 697) EGFR (BEAKER) (test 15 mL/min/1.73 ESTIMA ELVA GFR IS code = 1092) sq m NOT ACCURATE CREATININE CLEARANCE IN PREDICTING GLOMERULAR FILTRATION RATE . ESTIMATED GFR I S NOT APPLICABLE FOR DIALYSIS PATIEN TS. POCT-GLUCOSE [id number] 21:42:00 Test Item Value Reference Range Interpretation Comments POC-GLUCOSE METER 171 mg/dL 70-110 H TESTED AT [place] [address] ([facility]) (test code = JODY Gipson [facility] 1538) [address] POCT-GLUCOSE [id number] 18:03:00 Test Item Value Reference Range Interpretation Comments POC-GLUCOSE METER 123 mg/dL 70-110 H TESTED AT [place] [address] ([facility]) (test code = JODY Gipson [facility] 1538) [address] POCT-GLUCOSE [id number] 12:52:00 Test Item Value Reference Range Interpretation Comments POC-GLUCOSE METER 167 mg/dL 70-110 H TESTED AT [place] [address] ([facility]) (test code = JODY Giposn [facility] 1538) [address] POCT-GLUCOSE [id number] 09:05:00 Test Item Value Reference Range Interpretation Comments POC-GLUCOSE METER 128 mg/dL 70-110 H TESTED AT [place] [address] ([facility]) (test code = JODY Gipson [facility] 1538) [address] CT, PELVIS, WO [id number] 08:42:00FINAL REPORT CT pelvis without contrast HISTORY: [...] MDReport Verified Date/Time: 08/16/2018 08:42:53 Reading Location: [facility] Radiology Reading Room BASIC METABOLIC [id number] 05:58:00 Test Item Value Reference Range Interpretation Comments SODIUM (BEAKER) 137 meq/L 136-145 (test code = 381) POTASSIUM (BEAKER) 4.2 meq/L 3.5-5.1 (test code = 379) CHLORIDE (BEAKER) 100 meq/L 98-107 (test code = 382) CO2 (BEAKER) (test 28 meq/L 22-29 code = 355) BLOOD UREA NITROGEN 48 mg/dL 7-21 H (BEAKER) (test code = 354) CREATININE (BEAKER) 2.88 mg/dL 0.57-1.25 H (test code = 358) GLUCOSE RANDOM 115 mg/dL 70-105 H (BEAKER) (test code = 652) CALCIUM (BEAKER) 8.7 mg/dL 8.4-10.2 (test code = 697) EGFR (BEAKER) (test 16 mL/min/1.73 ESTIMA ELVA GFR IS code = 1092) sq m NOT ACCURATE CREATININE CLEARANCE IN PREDICTING GLOMERULAR FILTRATION RATE . ESTIMATED GFR I S NOT APPLICABLE FOR DIALYSIS PATIEN TS. POCT-GLUCOSE [id number] 03:05:00 Test Item Value Reference Range Interpretation Comments POC-GLUCOSE METER 157 mg/dL 70-110 H TESTED AT [facility] 6720 [facility] (test code = [facility] 1538) [address] POCT-GLUCOSE [id number] 20:57:00 Test Item Value Reference Range Interpretation Comments POC-GLUCOSE METER 106 mg/dL 70-110 TESTED AT [facility] 6720 ([facility] (test code = [facility] 1538) [address] POCT-GLUCOSE [id number] 18:13:00 Test Item Value Reference Range Interpretation Comments POC-GLUCOSE METER 237 mg/dL 70-110 H TESTED AT [facility] 6720 [facility] (test code = [facility] 1538) [address] POCT-GLUCOSE [id number] 13:47:00 Test Item Value Reference Range Interpretation Comments POC-GLUCOSE METER 172 mg/dL 70-110 H TESTED AT [place] [address] ([facility] (test code = JODY Gipson [facility] 1538) [address] POCT-GLUCOSE [id number] 08:50:00 Test Item Value Reference Range Interpretation Comments POC-GLUCOSE METER 155 mg/dL 70-110 H TESTED AT [place] [address] ([facility] (test code = JODY Gipson [facility] 1538) [address] BASIC METABOLIC [id number] 06:36:00 Test Item Value Reference Range Interpretation Comments SODIUM (BEAKER) 134 meq/L 136-145 L (test code = 381) POTASSIUM (BEAKER) 3.6 meq/L 3.5-5.1 (test code = 379) CHLORIDE (BEAKER) 100 meq/L 98-107 (test code = 382) CO2 (BEAKER) (test 26 meq/L 22-29 code = 355) BLOOD UREA NITROGEN 47 mg/dL 7-21 H (BEAKER) (test code = 354) CREATININE (BEAKER) 3.21 mg/dL 0.57-1.25 H (test code = 358) GLUCOSE RANDOM 139 mg/dL 70-105 H (BEAKER) (test code = 652) CALCIUM (BEAKER) 8.3 mg/dL 8.4-10.2 L (test code = 697) EGFR (BEAKER) (test 14 mL/min/1.73 ESTIMA ELVA GFR IS code = 1092) sq m NOT ACCURATE CREATININE CLEARANCE IN PREDICTING GLOMERULAR FILTRATION RATE . ESTIMATED GFR I S NOT APPLICABLE FOR DIALYSIS PATIEN TS. POCT-GLUCOSE [id number] 22:53:00 Test Item Value Reference Range Interpretation Comments POC-GLUCOSE METER 231 mg/dL 70-110 H TESTED AT [place] [address] (BEAKER) (test code = JODY Gipson [facility] 1538) [address] POCT-GLUCOSE [id number] 17:51:00 Test Item Value Reference Range Interpretation Comments POC-GLUCOSE METER 169 mg/dL 70-110 H TESTED AT [place] [address] ([facility] (test code = JODY Gipson [facility] 1538) [address] RESPIRATORY PANEL [id number] 15:45:00 Test Item Value Reference Range Interpretation Comments HUMAN METAPNEUMOVIRUS Not detected Not detected, (BEAKER) (test code = 2683) Equivocal RHINOVIRUS (BEAKER) (test Not detected Not detected, code = 2684) Equivocal INFLUENZA A (BEAKER) (test Not detected Not detected, code = 2685) Equivocal INFLUENZA A (NO SUBTYPE) Not detected, (test code = 3606) Equivocal INFLUENZA A SUBTYPE H1 Not detected, (BEAKER) (test code = 2686) Equivocal INFLUENZA A SUBTYPE H3 Not detected, (BEAKER) (test code = 2687) Equivocal INFLUENZA A SUBTYPE H1-2009 Not detected, (BEAKER) (test code = 3198) Equivocal INFLUENZA B (BEAKER) (test Not detected Not detected, code = 2688) Equivocal RESPIRATORY SYNCYTIAL VIRUS Not detected Not detected, (BEAKER) (test code = 3199) Equivocal PARAINFLUENZA VIRUS 1 Not detected Not detected, (BEAKER) (test code = 2691) Equivocal PARAINFLUENZA VIRUS 2 Not detected Not detected, (BEAKER) (test code = 2692) Equivocal PARAINFLUENZA VIRUS 3 Not detected Not detected, (BEAKER) (test code = 2693) Equivocal PARAINFLUENZA VIRUS 4 Not detected Not detected, (BEAKER) (test code = 3200) Equivocal ADENOVIRUS (BEAKER) (test Not detected Not detected, code = 2694) Equivocal CORONAVIRUS 229E (BEAKER) Not detected Not detected, (test code = 3201) Equivocal CORONAVIRUS HKU1 (BEAKER) Not detected Not detected, (test code = 3202) Equivocal CORONAVIRUS NL63 (BEAKER) Not detected Not detected, (test code = 3203) Equivocal CORONAVIRUS OC43 (BEAKER) Not detected Not detected, (test code = 3204) Equivocal BORDETELLA PERTUSSIS Not detected Not detected, (BEAKER) (test code = 3205) Equivocal CHLAMYDOPHILA PNEUMONIAE Not detected Not detected, (BEAKER) (test code = 3206) Equivocal MYCOPLASMA PNEUMONIAE Not detected Not detected, (BEAKER) (test code = 3207) Equivocal Other viruses and bacteria not targeted by this PCR panel cannot be excluded; therefore clinical correlation and follow up of serology, culture results, and other molecular studies is required. The results are not intended to be used as the sole means for clinical diagnosis or patient management decisions. This sample was tested at the [facility] Molecular Diagnostics Laboratory using the Pivot FilmArray Respiratory Panel. It is FDA cleared and has been verified and approved by the [facility] for clinical use on nasopharyngeal swab specimens.The performance of the FilmArrayRP has not been established in individuals who received influenza vaccine. Recent administration ofa nasal influenza vaccine may cause false positive results for Influenza A and/orInfluenza B.URINALYSIS W/ REFLEX URINE [id number] 12:32:00 Test Item Value Reference Range Interpretation Comments COLOR (BEAKER) (test code = 470) Light Yellow CLARITY (BEAKER) (test code = Hazy 469) SPECIFIC GRAVITY UA (BEAKER) 1.009 1.001-1.035 (test code = 468) PH UA (BEAKER) (test code = 467) 6.0 5.0-8.0 PROTEIN UA (BEAKER) (test code = 30 mg/dL Negative A 464) GLUCOSE UA (BEAKER) (test code = Negative Negative 365) KETONES UA (BEAKER) (test code = Negative Negative 371) BILIRUBIN UA (BEAKER) (test code Negative Negative = 462) BLOOD UA (BEAKER) (test code = Small Negative A 461) NITRITE UA (BEAKER) (test code = Negative Negative 465) LEUKOCYTE ESTERASE UA (BEAKER) Large Negative A (test code = 466) UROBILINOGEN UA (BEAKER) (test 0.2 mg/dL 0.2-1.0 code = 463) RBC UA (BEAKER) (test code = 0 /HPF 519) WBC UA (BEAKER) (test code = > /HPF 520) BACTERIA (BEAKER) (test code = Many 517) SQUAMOUS EPITHELIAL (BEAKER) < /HPF (test code = 516) RENAL EPITHELIAL (BEAKER) (test 15 /HPF code = 1575) WBC CASTS (BEAKER) (test code = 14 /LPF 1578) SOURCE(BEAKER) (test code = 3122) POCT-GLUCOSE [id number] 12:29:00 Test Item Value Reference Range Interpretation Comments POC-GLUCOSE METER 222 mg/dL 70-110 H TESTED AT [facility] 6720 (BEAKER) (test code = JODY [place] 1538) [address] CBC W/PLT COUNT & AUTO [id number] 10:12:00 Test Item Value Reference Range Interpretation Comments WHITE BLOOD CELL COUNT (BEAKER) 11.6 K/ L 3.5-10.5 H (test code = 775) RED BLOOD CELL COUNT (BEAKER) 2.77 M/ L 3.93-5.22 L (test code = 761) HEMOGLOBIN (BEAKER) (test code = 8.7 GM/DL 11.2-15.7 L 410) HEMATOCRIT (BEAKER) (test code = 27.2 % 34.1-44.9 L 411) MEAN CORPUSCULAR VOLUME (BEAKER) 98.2 fL 79.4-94.8 H (test code = 753) MEAN CORPUSCULAR HEMOGLOBIN 31.4 pg 25.6-32.2 (BEAKER) (test code = 751) MEAN CORPUSCULAR HEMOGLOBIN CONC 32.0 GM/DL 32.2-35.5 L (BEAKER) (test code = 752) RED CELL DISTRIBUTION WIDTH 17.4 % 11.7-14.4 H (BEAKER) (test code = 412) PLATELET COUNT (BEAKER) (test 209 K/CU MM 150-450 code = 756) MEAN PLATELET VOLUME (BEAKER) 10.2 fL 9.4-12.3 (test code = 754) NUCLEATED RED BLOOD CELLS 1 /100 WBC 0-0 H (BEAKER) (test code = 413) (CELLAVISION MANUAL DIFF)[id number] 10:12:00 Test Item Value Reference Range Interpretation Comments NEUTROPHILS - REL 86 % (CELLAVISION)(BEAKER) (test code = 2816) LYMPHOCYTES - REL 4 % (CELLAVISION)(BEAKER) (test code = 2817) MONOCYTES - REL 5 % (CELLAVISION)(BEAKER) (test code = 2818) EOSINOPHILS - REL 2 % (CELLAVISION)(BEAKER) (test code = 2819) METAMYELOCYTES - REL 2 % 0-0 H (CELLAVISION)(BEAKER) (test code = 2821) MYELOCYTES - REL 1 % 0-0 H (CELLAVISION)(BEAKER) (test code = 2822) NEUTROPHILS - ABS 9.98 K/ul 1.56-6.13 H (CELLAVISION)(BEAKER) (test code = 2830) LYMPHOCYTES - ABS 0.46 K/ul 1.18-3.74 L (CELLAVISION)(BEAKER) (test code = 2831) MONOCYTES - ABS 0.58 K/uL 0.24-0.36 H (CELLAVISION)(BEAKER) (test code = 2832) EOSINOPHILS - ABS 0.23 K/uL 0.04-0.36 (CELLAVISION)(BEAKER) (test code = 2834) METAMYELOCYTES - ABS 0.23 K/uL 0.00-0.00 H (CELLAVISION)(BEAKER) (test code = 2836) MYELOCYTES-ABS 0.12 K/uL 0.00-0.00 H (CELLAVISION)(BEAKER) (test code = 2837) TOTAL COUNTED (BEAKER) (test code 100 = 1351) MANUAL NRBC PER 100 CELLS (BEAKER) 1 /100 WBC 0-0 H (test code = 1353) WBC MORPHOLOGY (BEAKER) (test code Normal = 487) PLT MORPHOLOGY (BEAKER) (test code Normal = 486) POLYCHROMATOPHILLIC RBCS(BEAKER) 1+ few (test code = 478) HYPOCHROMIA (BEAKER) (test code = 1+ few 963) ARTIFACT (CELLAVISION)(BEAKER) Present (test code = 3432) PLATELET CONCENTRATION Adequate (CELLAVISION)(BEAKER) (test code = 3438) Received comment: User [...] MDReport Verified Date/Time: 08/14/2018 09:50:21 Reading Location: [facility] Radiology Reading Room POCT-GLUCOSE [id number] 08:20:00 Test Item Value Reference Range Interpretation Comments POC-GLUCOSE METER 126 mg/dL 70-110 H TESTED AT [facility] 6720 (BEAKER) (test code = [place] 1538) [address] COMPREHENSIVE METABOLIC [id number] 07:13:00 Test Item Value Reference Range Interpretation Comments TOTAL PROTEIN 5.5 gm/dL 6.0-8.3 L (BEAKER) (test code = 770) ALBUMIN (BEAKER) 3.1 g/dL 3.5-5.0 L (test code = 1145) ALKALINE PHOSPHATASE 67 U/L 40-150 (BEAKER) (test code = 346) BILIRUBIN TOTAL 0.6 mg/dL 0.2-1.2 (BEAKER) (test code = 377) SODIUM (BEAKER) (test 135 meq/L 136-145 L code = 381) POTASSIUM (BEAKER) 3.8 meq/L 3.5-5.1 (test code = 379) CHLORIDE (BEAKER) 99 meq/L 98-107 (test code = 382) CO2 (BEAKER) (test 27 meq/L 22-29 code = 355) BLOOD UREA NITROGEN 45 mg/dL 7-21 H (BEAKER) (test code = 354) CREATININE (BEAKER) 3.56 mg/dL 0.57-1.25 H (test code = 358) GLUCOSE RANDOM 116 mg/dL 70-105 H (BEAKER) (test code = 652) CALCIUM (BEAKER) 8.5 mg/dL 8.4-10.2 (test code = 697) AST (SGOT) (BEAKER) 30 U/L 5-34 (test code = 353) ALT (SGPT) (BEAKER) 18 U/L 6-55 (test code = 347) EGFR (BEAKER) (test 12 mL/min/1.73 ESTIMA ELVA GFR IS code = 1092) sq m NOT ACCURATE CREATININE CLEARANCE IN PREDICTING GLOMERULAR FILTRATION RATE . ESTIMATED GFR I S NOT APPLICABLE FOR DIALYSIS PATIEN TS. [id number] 06:59:00 Test Item Value Reference Range Interpretation Comments PHOSPHORUS (BEAKER) (test code = 2.3 mg/dL 2.3-4.7 604) [id number] 06:59:00 Test Item Value Reference Range Interpretation Comments MAGNESIUM (BEAKER) (test code = 2.0 mg/dL 1.6-2.6 627) CALCIUM, [id number] 06:47:00 Test Item Value Reference Range Interpretation Comments CALCIUM IONIZED ([facility]) (test 1.04 mmol/L 1.12-1.27 L code = 698) PH, BLOOD ([facility]) (test code = 7.38 1810) POCT-GLUCOSE [id number] 23:29:00 Test Item Value Reference Range Interpretation Comments POC-GLUCOSE METER 196 mg/dL 70-110 H TESTED AT [place] [address] ([facility]) (test code = JODY Gipson [facility] 1538) [id number] POCT-GLUCOSE [id number] 17:42:00 Test Item Value Reference Range Interpretation Comments POC-GLUCOSE METER 179 mg/dL 70-110 H TESTED AT [place] [address] ([facility]) [facility] 1538) [address] POCT-GLUCOSE [id number] 12:19:00 Test Item Value Reference Range Interpretation Comments POC-GLUCOSE METER 189 mg/dL 70-110 H TESTED AT [place] [address] ([facility]) ([facility] = [facility] 1538) [address] POCT-GLUCOSE [id number] 08:34:00 Test Item Value Reference Range Interpretation Comments POC-GLUCOSE METER 119 mg/dL 70-110 H TESTED AT [place] [address] ([facility]) (test [facility] = [facility] 1538) [address] COMPREHENSIVE METABOLIC [id number] 02:54:00 Test Item Value Reference Range Interpretation Comments TOTAL PROTEIN 5.8 gm/dL 6.0-8.3 L (AKER) (test code = 770) ALBUMIN (BEAKER) 3.2 g/dL 3.5-5.0 L (test code = 1145) ALKALINE PHOSPHATASE 65 U/L 40-150 (AKER) (test code = 346) BILIRUBIN TOTAL 0.8 mg/dL 0.2-1.2 (AKER) (test code = 377) SODIUM (BEAKER) (test 134 meq/L 136-145 L code = 381) POTASSIUM (BEAKER) 3.6 meq/L 3.5-5.1 (test code = 379) CHLORIDE (BEAKER) 100 meq/L 98-107 (test code = 382) CO2 (BEAKER) (test 25 meq/L 22-29 code = 355) BLOOD UREA NITROGEN 43 mg/dL 7-21 H (BEAKER) (test code = 354) CREATININE (BEAKER) 3.41 mg/dL 0.57-1.25 H (test code = 358) GLUCOSE RANDOM 90 mg/dL 70-105 (BEAKER) (test code = 652) CALCIUM (BEAKER) 8.4 mg/dL 8.4-10.2 (test code = 697) AST (SGOT) (BEAKER) 25 U/L 5-34 (test code = 353) ALT (SGPT) (BEAKER) 16 U/L 6-55 (test code = 347) EGFR (BEAKER) (test 13 mL/min/1.73 ESTIMA ELVA GFR IS code = 1092) sq m NOT ACCURATE CREATININE CLEARANCE IN PREDICTING GLOMERULAR FILTRATION RATE . ESTIMATED GFR I S NOT APPLICABLE FOR DIALYSIS PATIEN TS. [id number] 02:48:00 Test Item Value Reference Range Interpretation Comments PHOSPHORUS (BEAKER) (test code = 2.2 mg/dL 2.3-4.7 L 604) [id number] 02:48:00 Test Item Value Reference Range Interpretation Comments MAGNESIUM (BEAKER) (test code = 1.5 mg/dL 1.6-2.6 L 627) CALCIUM, [id number] 02:32:00 Test Item Value Reference Range Interpretation Comments CALCIUM IONIZED (BEAKER) (test 0.93 mmol/L 1.12-1.27 L code = 698) PH, BLOOD (BEAKER) (test code = 7.53 1810) CBC W/PLT COUNT & AUTO [id number] 02:31:00 Test Item Value Reference Range Interpretation Comments WHITE BLOOD CELL COUNT (BEAKER) 12.6 K/ L 3.5-10.5 H (test code = 775) RED BLOOD CELL COUNT (BEAKER) 2.95 M/ L 3.93-5.22 L (test code = 761) HEMOGLOBIN (BEAKER) (test code = 9.3 GM/DL 11.2-15.7 L 410) HEMATOCRIT (BEAKER) (test code = 29.5 % 34.1-44.9 L 411) MEAN CORPUSCULAR VOLUME (BEAKER) 100.0 fL 79.4-94.8 H (test code = 753) MEAN CORPUSCULAR HEMOGLOBIN 31.5 pg 25.6-32.2 (BEAKER) (test code = 751) MEAN CORPUSCULAR HEMOGLOBIN CONC 31.5 GM/DL 32.2-35.5 L (BEAKER) (test code = 752) RED CELL DISTRIBUTION WIDTH 17.2 % 11.7-14.4 H (BEAKER) (test code = 412) PLATELET COUNT (BEAKER) (test 198 K/CU MM 150-450 code = 756) MEAN PLATELET VOLUME (BEAKER) 9.9 fL 9.4-12.3 (test code = 754) NUCLEATED RED BLOOD CELLS 2 /100 WBC 0-0 H (BEAKER) (test code = 413) NEUTROPHILS RELATIVE PERCENT 72 % (BEAKER) (test code = 429) LYMPHOCYTES RELATIVE PERCENT 12 % (BEAKER) (test code = 430) MONOCYTES RELATIVE PERCENT 12 % (BEAKER) (test code = 431) EOSINOPHILS RELATIVE PERCENT 1 % (BEAKER) (test code = 432) BASOPHILS RELATIVE PERCENT 0 % (BEAKER) (test code = 437) NEUTROPHILS ABSOLUTE COUNT 9.10 K/ L 1.56-6.13 H (BEAKER) (test code = 670) LYMPHOCYTES ABSOLUTE COUNT 1.47 K/ L 1.18-3.74 (BEAKER) (test code = 414) MONOCYTES ABSOLUTE COUNT (BEAKER) 1.48 K/ L 0.24-0.36 H (test code = 415) EOSINOPHILS ABSOLUTE COUNT 0.18 K/ L 0.04-0.36 (BEAKER) (test code = 416) BASOPHILS ABSOLUTE COUNT (BEAKER) 0.04 K/ L 0.01-0.08 (test code = 417) IMMATURE GRANULOCYTES-RELATIVE 3 % 0-1 H PERCENT (BEAKER) (test code = 2801) POCT-GLUCOSE [id number] 02:17:00 Test Item Value Reference Range Interpretation Comments POC-GLUCOSE METER 97 mg/dL 70-110 TESTED AT [facility] 6720 (BEAKER) (test code = [place] [address] 1538) POCT-GLUCOSE [id number] 21:04:00 Test Item Value Reference Range Interpretation Comments POC-GLUCOSE METER 147 mg/dL 70-110 H TESTED AT [place] [address] ([facility]) (test code = JODY Gipson [facility] 1538) [id number] POCT-GLUCOSE [id number] 17:42:00 Test Item Value Reference Range Interpretation Comments POC-GLUCOSE METER 172 mg/dL 70-110 H TESTED AT [place] [address] ([facility]) (test code = JODY Gipson [facility] 1538) [id number] POCT-GLUCOSE [id number] 12:05:00 Test Item Value Reference Range Interpretation Comments POC-GLUCOSE METER 124 mg/dL 70-110 H TESTED AT [place] [address] ([facility]) (test code = J[place] Gipson [facility] 1538) [id number] POCT-GLUCOSE [id number] 07:37:00 Test Item Value Reference Range Interpretation Comments POC-GLUCOSE METER 94 mg/dL 70-110 TESTED AT [place] [address] ([facility]) (test code = J[place] Gipson [facility] [id number] 1538) RAD, CHEST, 1 VIEW, NON [id number] 04:50:00Reason for exam:->SOBShould this be performed at [...] MDReport Verified Date/Time: 08/12/2018 04:50:01 Reading Location: [address] Reading Room POCT-GLUCOSE METER 2018-08-12 04:39:00 Test Item Value Reference Range Interpretation Comments POC-GLUCOSE METER 107 mg/dL 70-110 TESTED AT [place] [address] ([facility]) ([facility] 1538) [id number] COMPREHENSIVE METABOLIC [id number] 04:16:00 Test Item Value Reference Range Interpretation Comments TOTAL PROTEIN 5.6 gm/dL 6.0-8.3 L (BEAKER) (test code = 770) ALBUMIN (BEAKER) 3.2 g/dL 3.5-5.0 L (test code = 1145) ALKALINE PHOSPHATASE 66 U/L 40-150 (BEAKER) (test code = 346) BILIRUBIN TOTAL 0.6 mg/dL 0.2-1.2 (BEAKER) (test code = 377) SODIUM (BEAKER) (test 136 meq/L 136-145 code = 381) POTASSIUM (BEAKER) 4.0 meq/L 3.5-5.1 (test code = 379) CHLORIDE (BEAKER) 102 meq/L 98-107 (test code = 382) CO2 (BEAKER) (test 25 meq/L 22-29 code = 355) BLOOD UREA NITROGEN 38 mg/dL 7-21 H (BEAKER) (test code = 354) CREATININE (BEAKER) 3.33 mg/dL 0.57-1.25 H (test code = 358) GLUCOSE RANDOM 105 mg/dL 70-105 (BEAKER) (test code = 652) CALCIUM (BEAKER) 8.6 mg/dL 8.4-10.2 (test code = 697) AST (SGOT) (BEAKER) 25 U/L 5-34 (test code = 353) ALT (SGPT) (BEAKER) 16 U/L 6-55 (test code = 347) EGFR (BEAKER) (test 13 mL/min/1.73 ESTIMA ELVA GFR IS code = 1092) sq m NOT ACCURATE CREATININE CLEARANCE IN PREDICTING GLOMERULAR FILTRATION RATE . ESTIMATED GFR I S NOT APPLICABLE FOR DIALYSIS PATIEN TS. [id number] 04:11:00 Test Item Value Reference Range Interpretation Comments PHOSPHORUS (BEAKER) (test code = 2.9 mg/dL 2.3-4.7 604) [id number] 04:11:00 Test Item Value Reference Range Interpretation Comments MAGNESIUM (BEAKER) (test code = 1.9 mg/dL 1.6-2.6 627) CBC W/PLT COUNT & AUTO [id number] 03:57:00 Test Item Value Reference Range Interpretation Comments WHITE BLOOD CELL COUNT (BEAKER) 12.6 K/ L 3.5-10.5 H (test code = 775) RED BLOOD CELL COUNT (BEAKER) 2.87 M/ L 3.93-5.22 L (test code = 761) HEMOGLOBIN (BEAKER) (test code = 9.0 GM/DL 11.2-15.7 L 410) HEMATOCRIT (BEAKER) (test code = 28.6 % 34.1-44.9 L 411) MEAN CORPUSCULAR VOLUME (BEAKER) 99.7 fL 79.4-94.8 H (test code = 753) MEAN CORPUSCULAR HEMOGLOBIN 31.4 pg 25.6-32.2 (BEAKER) (test code = 751) MEAN CORPUSCULAR HEMOGLOBIN CONC 31.5 GM/DL 32.2-35.5 L (BEAKER) (test code = 752) RED CELL DISTRIBUTION WIDTH 16.1 % 11.7-14.4 H (BEAKER) (test code = 412) PLATELET COUNT (BEAKER) (test 204 K/CU MM 150-450 code = 756) MEAN PLATELET VOLUME (BEAKER) 10.5 fL 9.4-12.3 (test code = 754) NUCLEATED RED BLOOD CELLS 5 /100 WBC 0-0 H (BEAKER) (test code = 413) NEUTROPHILS RELATIVE PERCENT 77 % (BEAKER) (test code = 429) LYMPHOCYTES RELATIVE PERCENT 9 % (BEAKER) (test code = 430) MONOCYTES RELATIVE PERCENT 11 % (BEAKER) (test code = 431) EOSINOPHILS RELATIVE PERCENT 2 % (BEAKER) (test code = 432) BASOPHILS RELATIVE PERCENT 0 % (BEAKER) (test code = 437) NEUTROPHILS ABSOLUTE COUNT 9.64 K/ L 1.56-6.13 H (BEAKER) (test code = 670) LYMPHOCYTES ABSOLUTE COUNT 1.07 K/ L 1.18-3.74 L (BEAKER) (test code = 414) MONOCYTES ABSOLUTE COUNT (BEAKER) 1.34 K/ L 0.24-0.36 H (test code = 415) EOSINOPHILS ABSOLUTE COUNT 0.19 K/ L 0.04-0.36 (BEAKER) (test code = 416) BASOPHILS ABSOLUTE COUNT (BEAKER) 0.03 K/ L 0.01-0.08 (test code = 417) IMMATURE GRANULOCYTES-RELATIVE 2 % 0-1 H PERCENT (BEAKER) (test code = 2801) CALCIUM, [id number] 03:25:00 Test Item Value Reference Range Interpretation Comments CALCIUM IONIZED (BEAKER) (test 1.10 mmol/L 1.12-1.27 L code = 698) PH, BLOOD (BEAKER) (test code = 7.43 1810) POCT-GLUCOSE [id number] 00:03:00 Test Item Value Reference Range Interpretation Comments POC-GLUCOSE METER 122 mg/dL 70-110 H TESTED AT [place] [address] ([facility]) (test code = [facility] 1538) [id number] POCT-GLUCOSE [id number] 21:32:00 Test Item Value Reference Range Interpretation Comments POC-GLUCOSE METER 104 mg/dL 70-110 TESTED AT [place] [address] ([facility]) (test code = [facility] 1538) [id number] POCT-GLUCOSE [id number] 17:51:00 Test Item Value Reference Range Interpretation Comments POC-GLUCOSE METER 151 mg/dL 70-110 H TESTED AT [place] [address] ([facility]) (test code = [facility] 1538) [id number] BASIC METABOLIC [id number] 16:24:00 Test Item Value Reference Range Interpretation Comments SODIUM (BEAKER) 133 meq/L 136-145 L (test code = 381) POTASSIUM (BEAKER) 4.1 meq/L 3.5-5.1 Specimen slightly (test code = 379) hemolyzed CHLORIDE (BEAKER) 101 meq/L 98-107 (test code = 382) CO2 (BEAKER) (test 26 meq/L 22-29 code = 355) BLOOD UREA NITROGEN 34 mg/dL 7-21 H (BEAKER) (test code = 354) CREATININE (BEAKER) 3.12 mg/dL 0.57-1.25 H Specimen slightly (test code = 358) hemolyzed GLUCOSE RANDOM 167 mg/dL 70-105 H (BEAKER) (test code = 652) CALCIUM (BEAKER) 8.4 mg/dL 8.4-10.2 (test code = 697) EGFR (BEAKER) (test 14 mL/min/1.73 ESTIMA ELVA GFR IS code = 1092) sq m NOT ACCURATE CREATININE CLEARANCE IN PREDICTING GLOMERULAR FILTRATION RATE . ESTIMATED GFR I S NOT APPLICABLE FOR DIALYSIS PATIEN TS. [id number] 16:22:00 Test Item Value Reference Range Interpretation Comments MAGNESIUM (BEAKER) 1.8 mg/dL 1.6-2.6 Specimen slightly (test code = 627) hemolyzed POCT-GLUCOSE [id number] 11:45:00 Test Item Value Reference Range Interpretation Comments POC-GLUCOSE METER 141 mg/dL 70-110 H TESTED AT [facility] 6720 (BEAKER) (test code = [place] [place] 1538) [address] POCT-GLUCOSE [id number] 07:51:00 Test Item Value Reference Range Interpretation Comments POC-GLUCOSE METER 112 mg/dL 70-110 H TESTED AT [facility] 6720 (BEAKER) (test code = [place] 1538) [id number] BASIC METABOLIC [id number] 05:18:00 Test Item Value Reference Range Interpretation Comments SODIUM (BEAKER) 135 meq/L 136-145 L (test code = 381) POTASSIUM (BEAKER) 4.7 meq/L 3.5-5.1 Specimen moderately (test code = 379) hemolyzed CHLORIDE (BEAKER) 103 meq/L 98-107 (test code = 382) CO2 (BEAKER) (test 24 meq/L 22-29 code = 355) BLOOD UREA NITROGEN 26 mg/dL 7-21 H (BEAKER) (test code = 354) CREATININE (BEAKER) 2.47 mg/dL 0.57-1.25 H Specimen moderately (test code = 358) hemolyzed GLUCOSE RANDOM 101 mg/dL 70-105 (BEAKER) (test code = 652) CALCIUM (BEAKER) 8.8 mg/dL 8.4-10.2 (test code = 697) EGFR (BEAKER) (test 19 mL/min/1.73 ESTIMA ELVA GFR IS code = 1092) sq m NOT ACCURATE CREATININE CLEARANCE IN PREDICTING GLOMERULAR FILTRATION RATE . ESTIMATED GFR I S NOT APPLICABLE FOR DIALYSIS PATIEN TS. [id number] 05:12:00 Test Item Value Reference Range Interpretation Comments MAGNESIUM (BEAKER) 2.0 mg/dL 1.6-2.6 Specimen moderately (test code = 627) hemolyzed CBC W/PLT COUNT & AUTO [id number] 04:19:00 Test Item Value Reference Range Interpretation Comments WHITE BLOOD CELL COUNT (BEAKER) 14.3 K/ L 3.5-10.5 H (test code = 775) RED BLOOD CELL COUNT (BEAKER) 3.03 M/ L 3.93-5.22 L (test code = 761) HEMOGLOBIN (BEAKER) (test code = 9.4 GM/DL 11.2-15.7 L 410) HEMATOCRIT (BEAKER) (test code = 29.2 % 34.1-44.9 L 411) MEAN CORPUSCULAR VOLUME (BEAKER) 96.4 fL 79.4-94.8 H (test code = 753) MEAN CORPUSCULAR HEMOGLOBIN 31.0 pg 25.6-32.2 (BEAKER) (test code = 751) MEAN CORPUSCULAR HEMOGLOBIN CONC 32.2 GM/DL 32.2-35.5 (BEAKER) (test code = 752) RED CELL DISTRIBUTION WIDTH 15.5 % 11.7-14.4 H (BEAKER) (test code = 412) PLATELET COUNT (BEAKER) (test 209 K/CU MM 150-450 code = 756) MEAN PLATELET VOLUME (BEAKER) 10.4 fL 9.4-12.3 (test code = 754) NUCLEATED RED BLOOD CELLS 4 /100 WBC 0-0 H (BEAKER) (test code = 413) NEUTROPHILS RELATIVE PERCENT 80 % (BEAKER) (test code = 429) LYMPHOCYTES RELATIVE PERCENT 6 % (BEAKER) (test code = 430) MONOCYTES RELATIVE PERCENT 11 % (BEAKER) (test code = 431) EOSINOPHILS RELATIVE PERCENT 1 % (BEAKER) (test code = 432) BASOPHILS RELATIVE PERCENT 0 % (BEAKER) (test code = 437) NEUTROPHILS ABSOLUTE COUNT 11.46 K/ L 1.56-6.13 H (BEAKER) (test code = 670) LYMPHOCYTES ABSOLUTE COUNT 0.80 K/ L 1.18-3.74 L (BEAKER) (test code = 414) MONOCYTES ABSOLUTE COUNT (BEAKER) 1.60 K/ L 0.24-0.36 H (test code = 415) EOSINOPHILS ABSOLUTE COUNT 0.07 K/ L 0.04-0.36 (BEAKER) (test code = 416) BASOPHILS ABSOLUTE COUNT (BEAKER) 0.03 K/ L 0.01-0.08 (test code = 417) IMMATURE GRANULOCYTES-RELATIVE 3 % 0-1 H PERCENT (BEAKER) (test code = 2801) RAD, CHEST, 1 VIEW, NON [id number] 03:48:00Reason for exam:->SOBShould this be performed at the bedside?->YesFINAL REPORT RAD, CHEST, 1 VIEW, NON DEPT INDICATION: SOB COMPARISON: Prior day's exam FINDINGS: Portable frontal view of the chest. IMPRESSION: Support Lines: Stable. Lungs and pleura: Unchanged airspace and pleural opacities. No pneumothorax.Heart and mediastinum: Stable contours. Additional findings: None. Signed: Socorro Méndez Verified Date/Time: 08/11/2018 03:48:09 -GLUCOSE [id number] 23:26:00 Test Item Value Reference Range Interpretation Comments POC-GLUCOSE METER 101 mg/dL 70-110 TESTED AT [facility] 67 ([facility]) (test code = [facility] 1538) [id number] POCT-GLUCOSE [id number] 18:11:00 Test Item Value Reference Range Interpretation Comments POC-GLUCOSE METER 171 mg/dL 70-110 H TESTED AT [place] [address] ([facility]) (test code = [facility] 1538) [address] BASIC METABOLIC [id number] 16:14:00 Test Item Value Reference Range Interpretation Comments SODIUM (BEAKER) 134 meq/L 136-145 L (test code = 381) POTASSIUM (BEAKER) 4.6 meq/L 3.5-5.1 (test code = 379) CHLORIDE (BEAKER) 102 meq/L 98-107 (test code = 382) CO2 (BEAKER) (test 25 meq/L 22-29 code = 355) BLOOD UREA NITROGEN 51 mg/dL 7-21 H (BEAKER) (test code = 354) CREATININE (BEAKER) 3.89 mg/dL 0.57-1.25 H (test code = 358) GLUCOSE RANDOM 182 mg/dL 70-105 H (BEAKER) (test code = 652) CALCIUM (BEAKER) 8.2 mg/dL 8.4-10.2 L (test code = 697) EGFR (BEAKER) (test 11 mL/min/1.73 ESTIMA ELVA GFR IS code = 1092) sq m NOT ACCURATE CREATININE CLEARANCE IN PREDICTING GLOMERULAR FILTRATION RATE . ESTIMATED GFR I S NOT APPLICABLE FOR DIALYSIS PATIEN TS. [id number] 16:07:00 Test Item Value Reference Range Interpretation Comments MAGNESIUM (BEAKER) (test code = 2.0 mg/dL 1.6-2.6 627) LACTIC ACID, [id number] 15:23:00 Test Item Value Reference Range Interpretation Comments LACTATE BLOOD ARTERIAL (2) 0.9 mmol/L 0.5-2.2 (BEAKER) (test code = 2874) RAD, CHEST, 1 VIEW, NON [id number] 15:07:00Reason for exam:- >hypoxemiaShould this be performed [...] Verified Date/Time: 08/10/2018 15:07:53 Reading Location: [address] Consult Reading Room BLOOD GAS, [id number] 14:53:00 Test Item Value Reference Range Interpretation Comments PH ARTERIAL (BEAKER) (test code = 7.44 7.35-7.45 383) PCO2 ARTERIAL (BEAKER) (test code 38 mmHg 35-45 = 384) PO2 ARTERIAL (BEAKER) (test code = 165 mmHg 80-90 H 385) O2 SATURATION ARTERIAL (BEAKER) 99.2 % 96.0-97.0 H (test code = 386) HCO3 ARTERIAL (BEAKER) (test code 26 mmol/L 21-29 = 388) BASE EXCESS ARTERIAL (BEAKER) 1.1 mmol/L -2.0-3.0 (test code = 387) PATIENT TEMPERATURE (BEAKER) (test 36.4 C code = 1818) FIO2 (BEAKER) (test code = 1819) 44.0 % POCT-GLUCOSE [id number] 12:20:00 Test Item Value Reference Range Interpretation Comments POC-GLUCOSE METER 208 mg/dL 70-110 H TESTED AT [facility] 6720 (BEAKER) (test code = [address] [place] 1538) [id number] CBC W/PLT COUNT & AUTO [id number] 08:56:00 Test Item Value Reference Range Interpretation Comments WHITE BLOOD CELL COUNT (BEAKER) 12.2 K/ L 3.5-10.5 H (test code = 775) RED BLOOD CELL COUNT (BEAKER) 2.87 M/ L 3.93-5.22 L (test code = 761) HEMOGLOBIN (BEAKER) (test code = 8.8 GM/DL 11.2-15.7 L 410) HEMATOCRIT (BEAKER) (test code = 27.4 % 34.1-44.9 L 411) MEAN CORPUSCULAR VOLUME (BEAKER) 95.5 fL 79.4-94.8 H (test code = 753) MEAN CORPUSCULAR HEMOGLOBIN 30.7 pg 25.6-32.2 (BEAKER) (test code = 751) MEAN CORPUSCULAR HEMOGLOBIN CONC 32.1 GM/DL 32.2-35.5 L (BEAKER) (test code = 752) RED CELL DISTRIBUTION WIDTH 15.1 % 11.7-14.4 H (BEAKER) (test code = 412) PLATELET COUNT (BEAKER) (test 224 K/CU MM 150-450 code = 756) MEAN PLATELET VOLUME (BEAKER) 9.8 fL 9.4-12.3 (test code = 754) NUCLEATED RED BLOOD CELLS 1 /100 WBC 0-0 H (BEAKER) (test code = 413) (CELLAVISION MANUAL DIFF)[id number] 08:56:00 Test Item Value Reference Range Interpretation Comments NEUTROPHILS - REL 80 % (CELLAVISION)(BEAKER) (test code = 2816) LYMPHOCYTES - REL 7 % (CELLAVISION)(BEAKER) (test code = 2817) MONOCYTES - REL 10 % (CELLAVISION)(BEAKER) (test code = 2818) EOSINOPHILS - REL 2 % (CELLAVISION)(BEAKER) (test code = 2819) NEUTROPHILS - ABS 9.76 K/ul 1.56-6.13 H (CELLAVISION)(BEAKER) (test code = 2830) LYMPHOCYTES - ABS 0.85 K/ul 1.18-3.74 L (CELLAVISION)(BEAKER) (test code = 2831) MONOCYTES - ABS 1.22 K/uL 0.24-0.36 H (CELLAVISION)(BEAKER) (test code = 2832) EOSINOPHILS - ABS 0.24 K/uL 0.04-0.36 (CELLAVISION)(BEAKER) (test code = 2834) TOTAL COUNTED (BEAKER) (test code 100 = 1351) MANUAL NRBC PER 100 CELLS (BEAKER) 2 /100 WBC 0-0 H (test code = 1353) PLT MORPHOLOGY (BEAKER) (test code Normal = 486) TOXIC GRANULATION (BEAKER) (test Present code = 771) POLYCHROMATOPHILLIC RBCS(BEAKER) 1+ few (test code = 478) ARTIFACT (CELLAVISION)(BEAKER) Present (test code = 3432) PLATELET CONCENTRATION Adequate (CELLAVISION)(BEAKER) (test code = 3438) Received comment: User [...] 08/09/2018. Signed: Rob Navarro MDReport Verified Date/Time: 08/10/2018 08:03:28 Reading Location: [facility] Radiology Reading Room POCT- GLUCOSE [id number] 07:51:00 Test Item Value Reference Range Interpretation Comments POC-GLUCOSE METER 129 mg/dL 70-110 H TEST[facility] AT [place] [address] [facility] (test code = [facility] 1538) [id number] POCT-GLUCOSE [id number] 06:38:00 Test Item Value Reference Range Interpretation Comments POC-GLUCOSE METER 193 mg/dL 70-110 H TESTED AT [place] [address] ([facility] (test code = [facility] 1538) [id number] POCT-GLUCOSE [id number] 05:48:00 Test Item Value Reference Range Interpretation Comments POC-GLUCOSE METER 67 mg/dL 70-110 L TESTED AT [place] [address] ([facility] (test code = [facility] [address] 1538) BASIC METABOLIC [id number] 05:07:00 Test Item Value Reference Range Interpretation Comments SODIUM (BEAKER) 137 meq/L 136-145 (test code = 381) POTASSIUM (BEAKER) 4.1 meq/L 3.5-5.1 Specimen slightly (test code = 379) hemolyzed CHLORIDE (BEAKER) 103 meq/L 98-107 (test code = 382) CO2 (BEAKER) (test 26 meq/L 22-29 code = 355) BLOOD UREA NITROGEN 45 mg/dL 7-21 H (BEAKER) (test code = 354) CREATININE (BEAKER) 2.97 mg/dL 0.57-1.25 H Specimen slightly (test code = 358) hemolyzed GLUCOSE RANDOM 66 mg/dL 70-105 L (BEAKER) (test code = 652) CALCIUM (BEAKER) 9.1 mg/dL 8.4-10.2 (test code = 697) EGFR ([facility]) (test 15 mL/min/1.73 ESTIMA ELVA GFR IS code = 1092) sq m NOT ACCURATE CREATININE CLEARANCE IN PREDICTING GLOMERULAR FILTRATION RATE . ESTIMATED GFR I S NOT APPLICABLE FOR DIALYSIS PATIEN SAMARIA. [id number] 05:06:00 Test Item Value Reference Range Interpretation Comments MAGNESIUM ([facility]) 2.0 mg/dL 1.6-2.6 Specimen slightly (test code = 627) hemolyzed POCT-GLUCOSE [id number] 20:02:00 Test Item Value Reference Range Interpretation Comments POC-GLUCOSE METER 95 mg/dL 70-110 TESTED AT [place] [address] ([facility]) (test code = [facility] [id number] 1538) POCT-GLUCOSE [id number] 17:35:00 Test Item Value Reference Range Interpretation Comments POC-GLUCOSE METER 144 mg/dL 70-110 H TESTED AT [place] [address] ([facility]) (test code = [facility] 1538) [id number] POCT-GLUCOSE [id number] 13:42:00 Test Item Value Reference Range Interpretation Comments POC-GLUCOSE METER 180 mg/dL 70-110 H TESTED AT [place] [address] ([facility]) (test code = [facility] 1538) [id number] POCT-GLUCOSE [id number] 07:56:00 Test Item Value Reference Range Interpretation Comments POC-GLUCOSE METER 206 mg/dL 70-110 H TESTED AT [place] [address] ([facility]) (test code = [facility] 1538) [id number] CBC W/PLT COUNT & AUTO [id number] 06:25:00 Test Item Value Reference Range Interpretation Comments WHITE BLOOD CELL COUNT ([facility]) 13.6 K/ L 3.5-10.5 H (test code = 775) RED BLOOD CELL COUNT ([facility]) 2.66 M/ L 3.93-5.22 L (test code = 761) HEMOGLOBIN ([facility]) (test code = 8.2 GM/DL 11.2-15.7 L 410) HEMATOCRIT ([facility]) (test code = 25.5 % 34.1-44.9 L 411) MEAN CORPUSCULAR VOLUME ([facility]) 95.9 fL 79.4-94.8 H (test code = 753) MEAN CORPUSCULAR HEMOGLOBIN 30.8 pg 25.6-32.2 (BEAKER) (test code = 751) MEAN CORPUSCULAR HEMOGLOBIN CONC 32.2 GM/DL 32.2-35.5 (BEAKER) (test code = 752) RED CELL DISTRIBUTION WIDTH 14.9 % 11.7-14.4 H (BEAKER) (test code = 412) PLATELET COUNT (BEAKER) (test 278 K/CU MM 150-450 code = 756) MEAN PLATELET VOLUME (BEAKER) 10.2 fL 9.4-12.3 (test code = 754) NUCLEATED RED BLOOD CELLS 0 /100 WBC 0-0 (BEAKER) (test code = 413) NEUTROPHILS RELATIVE PERCENT 82 % (BEAKER) (test code = 429) LYMPHOCYTES RELATIVE PERCENT 5 % (BEAKER) (test code = 430) MONOCYTES RELATIVE PERCENT 13 % (BEAKER) (test code = 431) EOSINOPHILS RELATIVE PERCENT 0 % (BEAKER) (test code = 432) BASOPHILS RELATIVE PERCENT 0 % (BEAKER) (test code = 437) NEUTROPHILS ABSOLUTE COUNT 11.05 K/ L 1.56-6.13 H (BEAKER) (test code = 670) LYMPHOCYTES ABSOLUTE COUNT 0.63 K/ L 1.18-3.74 L (BEAKER) (test code = 414) MONOCYTES ABSOLUTE COUNT (BEAKER) 1.74 K/ L 0.24-0.36 H (test code = 415) EOSINOPHILS ABSOLUTE COUNT 0.00 K/ L 0.04-0.36 L (BEAKER) (test code = 416) BASOPHILS ABSOLUTE COUNT (BEAKER) 0.01 K/ L 0.01-0.08 (test code = 417) IMMATURE GRANULOCYTES-RELATIVE 1 % 0-1 PERCENT (BEAKER) (test code = 2801) BASIC METABOLIC [id number] 06:22:00 Test Item Value Reference Range Interpretation Comments SODIUM (BEAKER) 135 meq/L 136-145 L (test code = 381) POTASSIUM (BEAKER) 4.8 meq/L 3.5-5.1 Specimen moderately (test code = 379) hemolyzed CHLORIDE (BEAKER) 102 meq/L 98-107 (test code = 382) CO2 (BEAKER) (test 18 meq/L 22-29 L code = 355) BLOOD UREA NITROGEN 84 mg/dL 7-21 H (BEAKER) (test code = 354) CREATININE (BEAKER) 4.72 mg/dL 0.57-1.25 H Specimen moderately (test code = 358) hemolyzed GLUCOSE RANDOM 205 mg/dL 70-105 H (BEAKER) (test code = 652) CALCIUM (BEAKER) 8.5 mg/dL 8.4-10.2 (test code = 697) EGFR (BEAKER) (test 9 mL/min/1.73 ESTIMAT ED GFR IS code = 1092) sq m NOT ACCURATE CREATININE CLEARANCE IN PREDICTING GLOMERULAR FILTRATION RATE . ESTIMATED GFR I S NOT APPLICABLE FOR DIALYSIS PATIEN TS. RAD, CHEST, 1 VIEW, NON [id number] 05:59:00Reason for exam:->SOBShould this be performed at [...] Socorro Méndez Verified Date/Time: 08/09/2018 05:59:24 POCT-GLUCOSE [id number] 22:05:00 Test Item Value Reference Range Interpretation Comments POC-GLUCOSE METER 254 mg/dL 70-110 H TESTED AT [facility] 6720 ([facility]) (test code = [address] [place] 1538) [id number] POCT-GLUCOSE [id number] 18:33:00 Test Item Value Reference Range Interpretation Comments POC-GLUCOSE METER 271 mg/dL 70-110 H TESTED AT [facility] 6720 ([facility]) (test code = [place] 1538) [address] RAD, CHEST, 1 VIEW, NON [id number] 15:44:00Reason for exam:->IABP placementShould this be performed [...] Tracey Verified Date/Time: 08/08/2018 15:44:27 Reading Location: [facility] Reading Room RAD, CHEST, 1 VIEW, NON [id number] 13:42:00Reason for exam:->IABP positionShould this be performed [...] Tracey Verified Date/Time: 08/08/2018 13:42:06 Reading Location: [facility] Reading Room POCT-GLUCOSE [id number] 13:28:00 Test Item Value Reference Range Interpretation Comments POC-GLUCOSE METER 294 mg/dL 70-110 H TESTED AT [facility] 67 ([facility]) (test code = [facility] 1538) [address] RAD, CHEST, 1 VIEW, NON [id number] 08:20:00Reason for exam:->SOBShould this be performed at [...] Sauer Verified Date/Time: 08/08/2018 08:20:51 Reading Location: [facility] Radiology Reading Room POCT-GLUCOSE [id number] 07:57:00 Test Item Value Reference Range Interpretation Comments POC-GLUCOSE METER 286 mg/dL 70-110 H TESTED AT [facility] 67 ([facility]) (test code = [facility]ip[facility] 1538) [id number] CBC W/PLT COUNT & AUTO [id number] 05:11:00 Test Item Value Reference Range Interpretation Comments WHITE BLOOD CELL COUNT (BEAKER) 11.2 K/ L 3.5-10.5 H (test code = 775) RED BLOOD CELL COUNT (BEAKER) 2.71 M/ L 3.93-5.22 L (test code = 761) HEMOGLOBIN (BEAKER) (test code = 8.3 GM/DL 11.2-15.7 L 410) HEMATOCRIT (BEAKER) (test code = 26.1 % 34.1-44.9 L 411) MEAN CORPUSCULAR VOLUME (BEAKER) 96.3 fL 79.4-94.8 H (test code = 753) MEAN CORPUSCULAR HEMOGLOBIN 30.6 pg 25.6-32.2 (BEAKER) (test code = 751) MEAN CORPUSCULAR HEMOGLOBIN CONC 31.8 GM/DL 32.2-35.5 L (BEAKER) (test code = 752) RED CELL DISTRIBUTION WIDTH 14.0 % 11.7-14.4 (BEAKER) (test code = 412) PLATELET COUNT (BEAKER) (test 227 K/CU MM 150-450 code = 756) MEAN PLATELET VOLUME (BEAKER) 10.6 fL 9.4-12.3 (test code = 754) NUCLEATED RED BLOOD CELLS 0 /100 WBC 0-0 (BEAKER) (test code = 413) NEUTROPHILS RELATIVE PERCENT 90 % (BEAKER) (test code = 429) LYMPHOCYTES RELATIVE PERCENT 4 % (BEAKER) (test code = 430) MONOCYTES RELATIVE PERCENT 4 % (BEAKER) (test code = 431) EOSINOPHILS RELATIVE PERCENT 0 % (BEAKER) (test code = 432) BASOPHILS RELATIVE PERCENT 0 % (BEAKER) (test code = 437) NEUTROPHILS ABSOLUTE COUNT 10.06 K/ L 1.56-6.13 H (BEAKER) (test code = 670) LYMPHOCYTES ABSOLUTE COUNT 0.45 K/ L 1.18-3.74 L (BEAKER) (test code = 414) MONOCYTES ABSOLUTE COUNT (BEAKER) 0.48 K/ L 0.24-0.36 H (test code = 415) EOSINOPHILS ABSOLUTE COUNT 0.00 K/ L 0.04-0.36 L (BEAKER) (test code = 416) BASOPHILS ABSOLUTE COUNT (BEAKER) 0.03 K/ L 0.01-0.08 (test code = 417) IMMATURE GRANULOCYTES-RELATIVE 2 % 0-1 H PERCENT (BEAKER) (test code = 2801) [id number] 04:43:00 Test Item Value Reference Range Interpretation Comments MAGNESIUM (BEAKER) (test code = 2.3 mg/dL 1.6-2.6 627) BASIC METABOLIC [id number] 04:43:00 Test Item Value Reference Range Interpretation Comments SODIUM (BEAKER) 135 meq/L 136-145 L (test code = 381) POTASSIUM (BEAKER) 4.9 meq/L 3.5-5.1 (test code = 379) CHLORIDE (BEAKER) 102 meq/L 98-107 (test code = 382) CO2 (BEAKER) (test 18 meq/L 22-29 L code = 355) BLOOD UREA NITROGEN 68 mg/dL 7-21 H (BEAKER) (test code = 354) CREATININE (BEAKER) 3.54 mg/dL 0.57-1.25 H (test code = 358) GLUCOSE RANDOM 267 mg/dL 70-105 H (BEAKER) (test code = 652) CALCIUM (BEAKER) 8.6 mg/dL 8.4-10.2 (test code = 697) EGFR (BEAKER) (test 12 mL/min/1.73 ESTIMA ELVA GFR IS code = 1092) sq m NOT ACCURATE CREATININE CLEARANCE IN PREDICTING GLOMERULAR FILTRATION RATE . ESTIMATED GFR I S NOT APPLICABLE FOR DIALYSIS PATIEN TS. POCT-GLUCOSE [id number] 22:27:00 Test Item Value Reference Range Interpretation Comments POC-GLUCOSE METER 279 mg/dL 70-110 H TESTED AT [place] [address] ([facility]) (test code = JODY VENEGAS 1538) [id number] BASIC METABOLIC [id number] 22:17:00 Test Item Value Reference Range Interpretation Comments SODIUM (BEAKER) 133 meq/L 136-145 L (test code = 381) POTASSIUM (BEAKER) 4.6 meq/L 3.5-5.1 (test code = 379) CHLORIDE (BEAKER) 100 meq/L 98-107 (test code = 382) CO2 (BEAKER) (test 18 meq/L 22-29 L code = 355) BLOOD UREA NITROGEN 64 mg/dL 7-21 H (BEAKER) (test code = 354) CREATININE (BEAKER) 3.59 mg/dL 0.57-1.25 H (test code = 358) GLUCOSE RANDOM 250 mg/dL 70-105 H (BEAKER) (test code = 652) CALCIUM (BEAKER) 8.3 mg/dL 8.4-10.2 L (test code = 697) EGFR (BEAKER) (test 12 mL/min/1.73 ESTIMA ELVA GFR IS code = 1092) sq m NOT ACCURATE CREATININE CLEARANCE IN PREDICTING GLOMERULAR FILTRATION RATE . ESTIMATED GFR I S NOT APPLICABLE FOR DIALYSIS PATIEN TS. [id number] 22:13:00 Test Item Value Reference Range Interpretation Comments MAGNESIUM (BEAKER) (test code = 2.1 mg/dL 1.6-2.6 627) [id number] 19:37:00 Test Item Value Reference Range Interpretation Comments ACTIVATED CLOTTING TIME 268 sec TEST ED AT [place] [address] [facility] (test code = JODY VENEGAS 441) [id number] 18:30:00 Test Item Value Reference Range Interpretation Comments ACTIVATED CLOTTING TIME 257 sec TEST ED AT [place] [address] ([facility]) (test code = JODY Gipson [facility] 441) [id number] 17:58:00 Test Item Value Reference Range Interpretation Comments ACTIVATED CLOTTING TIME 219 sec TEST ED AT [place] [address] ([facility]) (test code = [place] [address]) [id number] 17:58:00 Test Item Value Reference Range Interpretation Comments ACTIVATED CLOTTING TIME > sec OUTS JOSSUE MEASURING ([facility]) (test code = RANGET ESTED AT [place] [address] 441) [facility] [address] POCT-GLUCOSE [id number] 12:23:00 Test Item Value Reference Range Interpretation Comments POC-GLUCOSE METER 169 mg/dL 70-110 H TESTED AT [place] [address] ([facility]) (test code = [facility] 1538) [id number] RAD, CHEST, 1 VIEW, NON [id number] 09:10:00Reason for exam:->SOBShould this be performed at the bedside?->YesFINAL REPORT Chest dated 08/07/2018 COMPARISON: 08/06/2018 Clinical Information: SOB Comment: Heart is enlarged. Pulmonary vasculature is indistinct. Interstitial disease is seen bilaterally suggestive of vascular congestion or pulmonary edema. There is small bilateral pleural effusion. IMPRESSION: No interval change. Signed: Yuan Arangoeport Verified Date/Time: 08/07/2018 09:10:23 Reading Location: [facility] Radiology Reading Room POCT-GLUCOSE [id number] 07:49:00 Test Item Value Reference Range Interpretation Comments POC-GLUCOSE METER 165 mg/dL 70-110 H TESTED AT [place] [address] ([facility]) (test code = [facility] 1538) [id number] COMPREHENSIVE METABOLIC [id number] 06:00:00 Test Item Value Reference Range Interpretation Comments TOTAL PROTEIN 6.0 gm/dL 6.0-8.3 (BEAKER) (test code = 770) ALBUMIN (BEAKER) 3.3 g/dL 3.5-5.0 L (test code = 1145) ALKALINE PHOSPHATASE 58 U/L 40-150 (BEAKER) (test code = 346) BILIRUBIN TOTAL 0.4 mg/dL 0.2-1.2 (BEAKER) (test code = 377) SODIUM (BEAKER) (test 135 meq/L 136-145 L code = 381) POTASSIUM (BEAKER) 4.1 meq/L 3.5-5.1 (test code = 379) CHLORIDE (BEAKER) 102 meq/L 98-107 (test code = 382) CO2 (BEAKER) (test 24 meq/L 22-29 code = 355) BLOOD UREA NITROGEN 52 mg/dL 7-21 H (BEAKER) (test code = 354) CREATININE (BEAKER) 3.23 mg/dL 0.57-1.25 H (test code = 358) GLUCOSE RANDOM 154 mg/dL 70-105 H (BEAKER) (test code = 652) CALCIUM (BEAKER) 8.3 mg/dL 8.4-10.2 L (test code = 697) AST (SGOT) (BEAKER) 31 U/L 5-34 (test code = 353) ALT (SGPT) (BEAKER) 17 U/L 6-55 (test code = 347) EGFR (BEAKER) (test 14 mL/min/1.73 ESTIMA ELVA GFR IS code = 1092) sq m NOT ACCURATE CREATININE CLEARANCE IN PREDICTING GLOMERULAR FILTRATION RATE . ESTIMATED GFR I S NOT APPLICABLE FOR DIALYSIS PATIEN TS. [id number] 05:56:00 Test Item Value Reference Range Interpretation Comments PHOSPHORUS (BEAKER) (test code = 2.9 mg/dL 2.3-4.7 604) [id number] 05:56:00 Test Item Value Reference Range Interpretation Comments MAGNESIUM (BEAKER) (test code = 2.0 mg/dL 1.6-2.6 627) CBC W/PLT COUNT & AUTO [id number] 05:42:00 Test Item Value Reference Range Interpretation Comments WHITE BLOOD CELL COUNT (BEAKER) 9.6 K/ L 3.5-10.5 (test code = 775) RED BLOOD CELL COUNT (BEAKER) 2.84 M/ L 3.93-5.22 L (test code = 761) HEMOGLOBIN (BEAKER) (test code = 8.8 GM/DL 11.2-15.7 L 410) HEMATOCRIT (BEAKER) (test code = 27.2 % 34.1-44.9 L 411) MEAN CORPUSCULAR VOLUME (BEAKER) 95.8 fL 79.4-94.8 H (test code = 753) MEAN CORPUSCULAR HEMOGLOBIN 31.0 pg 25.6-32.2 (BEAKER) (test code = 751) MEAN CORPUSCULAR HEMOGLOBIN CONC 32.4 GM/DL 32.2-35.5 (BEAKER) (test code = 752) RED CELL DISTRIBUTION WIDTH 14.1 % 11.7-14.4 (BEAKER) (test code = 412) PLATELET COUNT (BEAKER) (test 218 K/CU MM 150-450 code = 756) MEAN PLATELET VOLUME (BEAKER) 10.2 fL 9.4-12.3 (test code = 754) NUCLEATED RED BLOOD CELLS 0 /100 WBC 0-0 (BEAKER) (test code = 413) NEUTROPHILS RELATIVE PERCENT 76 % (BEAKER) (test code = 429) LYMPHOCYTES RELATIVE PERCENT 9 % (BEAKER) (test code = 430) MONOCYTES RELATIVE PERCENT 12 % (BEAKER) (test code = 431) EOSINOPHILS RELATIVE PERCENT 1 % (BEAKER) (test code = 432) BASOPHILS RELATIVE PERCENT 0 % (BEAKER) (test code = 437) NEUTROPHILS ABSOLUTE COUNT 7.35 K/ L 1.56-6.13 H (BEAKER) (test code = 670) LYMPHOCYTES ABSOLUTE COUNT 0.84 K/ L 1.18-3.74 L (BEAKER) (test code = 414) MONOCYTES ABSOLUTE COUNT (BEAKER) 1.16 K/ L 0.24-0.36 H (test code = 415) EOSINOPHILS ABSOLUTE COUNT 0.13 K/ L 0.04-0.36 (BEAKER) (test code = 416) BASOPHILS ABSOLUTE COUNT (BEAKER) 0.04 K/ L 0.01-0.08 (test code = 417) IMMATURE GRANULOCYTES-RELATIVE 1 % 0-1 PERCENT (BEAKER) (test code = 2801) CALCIUM, [id number] 05:32:00 Test Item Value Reference Range Interpretation Comments CALCIUM IONIZED (BEAKER) (test 1.12 mmol/L 1.12-1.27 code = 698) PH, BLOOD (BEAKER) (test code = 7.36 1810) POCT-GLUCOSE [id number] 21:35:00 Test Item Value Reference Range Interpretation Comments POC-GLUCOSE METER 143 mg/dL 70-110 H TESTED AT [place] [address] (BEAKER) (test code = [facility] 1538) [id number] POCT-GLUCOSE [id number] 17:31:00 Test Item Value Reference Range Interpretation Comments POC-GLUCOSE METER 105 mg/dL 70-110 TESTED AT [place] [address] ([facility] (test code = [facility] 1538) [address] POCT-GLUCOSE [id number] 12:46:00 Test Item Value Reference Range Interpretation Comments POC-GLUCOSE METER 159 mg/dL 70-110 H TESTED AT [place] [address] ([facility] (test code = [facility] 1538) [address] POCT-GLUCOSE [id number] 07:40:00 Test Item Value Reference Range Interpretation Comments POC-GLUCOSE METER 120 mg/dL 70-110 H TESTED AT [place] [address] ([facility] (test code = [facility] 1538) [address] [id number] 04:52:00 Test Item Value Reference Range Interpretation Comments MAGNESIUM (BEAKER) (test code = 1.8 mg/dL 1.6-2.6 627) BASIC METABOLIC [id number] 04:52:00 Test Item Value Reference Range Interpretation Comments SODIUM (BEAKER) 137 meq/L 136-145 (test code = 381) POTASSIUM (BEAKER) 3.8 meq/L 3.5-5.1 (test code = 379) CHLORIDE (BEAKER) 105 meq/L 98-107 (test code = 382) CO2 (BEAKER) (test 23 meq/L 22-29 code = 355) BLOOD UREA NITROGEN 51 mg/dL 7-21 H (BEAKER) (test code = 354) CREATININE (BEAKER) 2.93 mg/dL 0.57-1.25 H (test code = 358) GLUCOSE RANDOM 108 mg/dL 70-105 H (BEAKER) (test code = 652) CALCIUM (BEAKER) 8.4 mg/dL 8.4-10.2 (test code = 697) EGFR (BEAKER) (test 16 mL/min/1.73 ESTIMA ELVA GFR IS code = 1092) sq m NOT ACCURATE CREATININE CLEARANCE IN PREDICTING GLOMERULAR FILTRATION RATE . ESTIMATED GFR I S NOT APPLICABLE FOR DIALYSIS PATIEN [place]SA[place] RAD, CHEST, 1 VIEW, NON [id number] 04:45:00Reason for exam:->SOBShould this be performed at [...] MDReport Verified Date/Time: 08/06/2018 04:45:08 Reading Location: [address] Reading Room APTT 2018-08-06 04:31:00 Test Item Value Reference Range Interpretation Comments PARTIAL THROMBOPLASTIN TIME 45.7 seconds 22.5-36.0 H (BEAKER) (test code = 760) 4 hours after the start of continuous infusion and 4 hours after any rate change CBC W/PLT COUNT & AUTO [id number] 04:23:00 Test Item Value Reference Range Interpretation Comments WHITE BLOOD CELL COUNT (BEAKER) 8.8 K/ L 3.5-10.5 (test code = 775) RED BLOOD CELL COUNT (BEAKER) 2.95 M/ L 3.93-5.22 L (test code = 761) HEMOGLOBIN (BEAKER) (test code = 9.1 GM/DL 11.2-15.7 L 410) HEMATOCRIT (BEAKER) (test code = 27.9 % 34.1-44.9 L 411) MEAN CORPUSCULAR VOLUME (BEAKER) 94.6 fL 79.4-94.8 (test code = 753) MEAN CORPUSCULAR HEMOGLOBIN 30.8 pg 25.6-32.2 (BEAKER) (test code = 751) MEAN CORPUSCULAR HEMOGLOBIN CONC 32.6 GM/DL 32.2-35.5 (BEAKER) (test code = 752) RED CELL DISTRIBUTION WIDTH 13.4 % 11.7-14.4 (BEAKER) (test code = 412) PLATELET COUNT (BEAKER) (test 223 K/CU MM 150-450 code = 756) MEAN PLATELET VOLUME (BEAKER) 10.0 fL 9.4-12.3 (test code = 754) NUCLEATED RED BLOOD CELLS 0 /100 WBC 0-0 (BEAKER) (test code = 413) NEUTROPHILS RELATIVE PERCENT 75 % (BEAKER) (test code = 429) LYMPHOCYTES RELATIVE PERCENT 12 % (BEAKER) (test code = 430) MONOCYTES RELATIVE PERCENT 10 % (BEAKER) (test code = 431) EOSINOPHILS RELATIVE PERCENT 2 % (BEAKER) (test code = 432) BASOPHILS RELATIVE PERCENT 0 % (BEAKER) (test code = 437) NEUTROPHILS ABSOLUTE COUNT 6.55 K/ L 1.56-6.13 H (BEAKER) (test code = 670) LYMPHOCYTES ABSOLUTE COUNT 1.08 K/ L 1.18-3.74 L (BEAKER) (test code = 414) MONOCYTES ABSOLUTE COUNT (BEAKER) 0.89 K/ L 0.24-0.36 H (test code = 415) EOSINOPHILS ABSOLUTE COUNT 0.16 K/ L 0.04-0.36 (BEAKER) (test code = 416) BASOPHILS ABSOLUTE COUNT (BEAKER) 0.03 K/ L 0.01-0.08 (test code = 417) IMMATURE GRANULOCYTES-RELATIVE 1 % 0-1 PERCENT (BEAKER) (test code = 2801) POCT-GLUCOSE [id number] 21:47:00 Test Item Value Reference Range Interpretation Comments POC-GLUCOSE METER 184 mg/dL 70-110 H TESTED AT [facility] 6720 ([facility] (test code = [place] 1538) [address] POCT-GLUCOSE [id number] 17:15:00 Test Item Value Reference Range Interpretation Comments POC-GLUCOSE METER 120 mg/dL 70-110 H TESTED AT [facility] 67[address] ([facility] (test code = [place] 1538) [address] POCT-GLUCOSE [id number] 12:00:00 Test Item Value Reference Range Interpretation Comments POC-GLUCOSE METER 226 mg/dL 70-110 H TESTED AT [facility] 6720 (BEAKER) (test code = [place] 1538) [address] POCT-GLUCOSE [id number] 07:45:00 Test Item Value Reference Range Interpretation Comments POC-GLUCOSE METER 192 mg/dL 70-110 H TESTED AT [facility] 67[address] ([facility] (test code = [place] 1538) [address] RAD, CHEST, 1 VIEW, NON [id number] 07:45:00Reason for exam:->SOBShould this be performed at the bedside?->YesFINAL REPORT RAD, CHEST, 1 VIEW, NON DEPT INDICATION: SOB COMPARISON: Prior days exam FINDINGS: Portable frontal view of the chest. IMPRESSION: Support Lines: None. Lungs and pleura: No significant interval change in the appearance of the interspaces. Subsegmental atelectasisversus trace bilateral effusions. No pneumothorax.Heart and mediastinum: Stable contours. Additionalfindings: None. Signed: JR Mary, Radha Alejo Verified Date/Time: 08/05/2018 07:45:53 Reading Location: [address] Neuro Reading Room [id number] 06:25:00 Test Item Value Reference Range Interpretation Comments MAGNESIUM (BEAKER) (test code = 1.8 mg/dL 1.6-2.6 627) BASIC METABOLIC [id number] 06:25:00 Test Item Value Reference Range Interpretation Comments SODIUM (BEAKER) 138 meq/L 136-145 (test code = 381) POTASSIUM (BEAKER) 3.9 meq/L 3.5-5.1 (test code = 379) CHLORIDE (BEAKER) 107 meq/L 98-107 (test code = 382) CO2 (BEAKER) (test 23 meq/L 22-29 code = 355) BLOOD UREA NITROGEN 53 mg/dL 7-21 H (BEAKER) (test code = 354) CREATININE (BEAKER) 2.79 mg/dL 0.57-1.25 H (test code = 358) GLUCOSE RANDOM 134 mg/dL 70-105 H (BEAKER) (test code = 652) CALCIUM (BEAKER) 8.3 mg/dL 8.4-10.2 L (test code = 697) EGFR (BEAKER) (test 16 mL/min/1.73 ESTIMA ELVA GFR IS code = 1092) sq m NOT ACCURATE CREATININE CLEARANCE IN PREDICTING GLOMERULAR FILTRATION RATE . ESTIMATED GFR I S NOT APPLICABLE FOR DIALYSIS PATIEN TS. CBC W/PLT COUNT & AUTO [id number] 05:59:00 Test Item Value Reference Range Interpretation Comments WHITE BLOOD CELL COUNT (BEAKER) 8.1 K/ L 3.5-10.5 (test code = 775) RED BLOOD CELL COUNT (BEAKER) 3.09 M/ L 3.93-5.22 L (test code = 761) HEMOGLOBIN (BEAKER) (test code = 9.5 GM/DL 11.2-15.7 L 410) HEMATOCRIT (BEAKER) (test code = 30.1 % 34.1-44.9 L 411) MEAN CORPUSCULAR VOLUME (BEAKER) 97.4 fL 79.4-94.8 H (test code = 753) MEAN CORPUSCULAR HEMOGLOBIN 30.7 pg 25.6-32.2 (BEAKER) (test code = 751) MEAN CORPUSCULAR HEMOGLOBIN CONC 31.6 GM/DL 32.2-35.5 L (BEAKER) (test code = 752) RED CELL DISTRIBUTION WIDTH 13.5 % 11.7-14.4 (BEAKER) (test code = 412) PLATELET COUNT (BEAKER) (test 172 K/CU MM 150-450 code = 756) MEAN PLATELET VOLUME (BEAKER) 10.1 fL 9.4-12.3 (test code = 754) NUCLEATED RED BLOOD CELLS 0 /100 WBC 0-0 (BEAKER) (test code = 413) NEUTROPHILS RELATIVE PERCENT 75 % (BEAKER) (test code = 429) LYMPHOCYTES RELATIVE PERCENT 12 % (BEAKER) (test code = 430) MONOCYTES RELATIVE PERCENT 11 % (BEAKER) (test code = 431) EOSINOPHILS RELATIVE PERCENT 2 % (BEAKER) (test code = 432) BASOPHILS RELATIVE PERCENT 0 % (BEAKER) (test code = 437) NEUTROPHILS ABSOLUTE COUNT 6.06 K/ L 1.56-6.13 (BEAKER) (test code = 670) LYMPHOCYTES ABSOLUTE COUNT 0.95 K/ L 1.18-3.74 L (BEAKER) (test code = 414) MONOCYTES ABSOLUTE COUNT (BEAKER) 0.85 K/ L 0.24-0.36 H (test code = 415) EOSINOPHILS ABSOLUTE COUNT 0.13 K/ L 0.04-0.36 (BEAKER) (test code = 416) BASOPHILS ABSOLUTE COUNT (BEAKER) 0.03 K/ L 0.01-0.08 (test code = 417) IMMATURE GRANULOCYTES-RELATIVE 1 % 0-1 PERCENT (BEAKER) (test code = 2801) POCT-GLUCOSE [id number] 22:07:00 Test Item Value Reference Range Interpretation Comments POC-GLUCOSE METER 183 mg/dL 70-110 H TESTED AT [facility] 67 ([facility]) (test code = [facility] 1538) [address] POCT-GLUCOSE [id number] 18:23:00 Test Item Value Reference Range Interpretation Comments POC-GLUCOSE METER 174 mg/dL 70-110 H TESTED AT [place] [address] ([facility]) (test code = [facility] 1538) [address] C. DIFFICILE GDH [id number] 15:36:00 Test Item Value Reference Range Interpretation Comments CDT TOXIN (test code Negative Negative = [id number]) CDT GDH ANTIGEN Positive Negative A C. difficile present but (test code = toxin not detec elva. [id number]) Indicates colon ization with non-toxige alexis strain or level of tox in below detectable leve ls. No need for enteri c isolation. Sandoval atment is rarely needed ( only when strong clinical suspicion for Clostridium difficile infection) Testing performed by [employer] Rapid Cassette Assay. For GDH, published sensitivity of the assay is 98.7% compared to cytotoxicity testing. For Toxin AB, published sensitivity is 87.8% and specificity 99.4% compared to cytotoxicity testing.Verification of kit performance was done by the [facility] Microbiology Lab prior to clinical use.URINALYSIS W/ REFLEX URINE [id number] 15:18:00 Test Item Value Reference Range Interpretation Comments COLOR (BEAKER) (test code = 470) Yellow CLARITY (BEAKER) (test code = 469) Hazy SPECIFIC GRAVITY UA (BEAKER) (test 1.017 1.001-1.035 code = 468) PH UA (BEAKER) (test code = 467) 5.5 5.0-8.0 PROTEIN UA (BEAKER) (test code = 30 mg/dL Negative A 464) GLUCOSE UA (BEAKER) (test code = Negative Negative 365) KETONES UA (BEAKER) (test code = Negative Negative 371) BILIRUBIN UA (BEAKER) (test code = Negative Negative 462) BLOOD UA (BEAKER) (test code = 461) Trace Negative A NITRITE UA (BEAKER) (test code = Negative Negative 465) LEUKOCYTE ESTERASE UA (BEAKER) Large Negative A (test code = 466) UROBILINOGEN UA (BEAKER) (test code 0.2 mg/dL 0.2-1.0 = 463) RBC UA (BEAKER) (test code = 519) 0 /HPF WBC UA (BEAKER) (test code = 520) 190 /HPF BACTERIA (BEAKER) (test code = 517) Many MUCUS (BEAKER) (test code = 1574) Rare SQUAMOUS EPITHELIAL (BEAKER) (test 1 /HPF code = 516) HYALINE CASTS (BEAKER) (test code = 4 /LPF 514) SOURCE(BEAKER) (test code = 2795) POCT-GLUCOSE [id number] 13:03:00 Test Item Value Reference Range Interpretation Comments POC-GLUCOSE METER 213 mg/dL 70-110 H TESTED AT [place] [address] ([facility] 1538) [address] OCCULT BLOOD, [id number] 11:58:00 Test Item Value Reference Range Interpretation Comments FECAL OCCULT BLOOD (BEAKER) (test Positive Negative A code = 618) POCT-GLUCOSE [id number] 08:00:00 Test Item Value Reference Range Interpretation Comments POC-GLUCOSE METER 127 mg/dL 70-110 H TESTED AT [place] [address] ([facility] (test code = [facility] 1538) [address] TROPONIN [id number] 07:07:00 Test Item Value Reference Range Interpretation Comments TROPONIN I (BEAKER) (test code = 44.85 ng/mL 0.00-0.03 HH 397) Troponin I (TnI) levels must be interpreted [...] and persistent tachyarrhythmia.RAD, CHEST, 1 VIEW, NON [id number] 07:00:00Reason for exam:->SOBShould this be performed at [...] contours.Additional findings: None. Signed: JR Hernandez Robert MDRhospital for special care Verified Date/Time: 08/04/2018 07:00:06 Reading Location: [facility] C013V Neuro Reading Room COMPREHENSIVE METABOLIC [id number] 06:56:00 Test Item Value Reference Range Interpretation Comments TOTAL PROTEIN 5.7 gm/dL 6.0-8.3 L (BEAKER) (test code = 770) ALBUMIN (BEAKER) 3.2 g/dL 3.5-5.0 L (test code = 1145) ALKALINE PHOSPHATASE 55 U/L 40-150 (BEAKER) (test code = 346) BILIRUBIN TOTAL 0.5 mg/dL 0.2-1.2 (BEAKER) (test code = 377) SODIUM (BEAKER) (test 138 meq/L 136-145 code = 381) POTASSIUM (BEAKER) 3.7 meq/L 3.5-5.1 (test code = 379) CHLORIDE (BEAKER) 107 meq/L 98-107 (test code = 382) CO2 (BEAKER) (test 24 meq/L 22-29 code = 355) BLOOD UREA NITROGEN 61 mg/dL 7-21 H (BEAKER) (test code = 354) CREATININE (BEAKER) 2.88 mg/dL 0.57-1.25 H (test code = 358) GLUCOSE RANDOM 122 mg/dL 70-105 H (BEAKER) (test code = 652) CALCIUM (BEAKER) 8.1 mg/dL 8.4-10.2 L (test code = 697) AST (SGOT) (BEAKER) 71 U/L 5-34 H (test code = 353) ALT (SGPT) (BEAKER) 23 U/L 6-55 (test code = 347) EGFR (BEAKER) (test 16 mL/min/1.73 ESTIMA ELVA GFR IS code = 1092) sq m NOT ACCURATE CREATININE CLEARANCE IN PREDICTING GLOMERULAR FILTRATION RATE . ESTIMATED GFR I S NOT APPLICABLE FOR DIALYSIS PATIEN TS. [id number] 06:55:00 Test Item Value Reference Range Interpretation Comments PHOSPHORUS (BEAKER) (test code = 2.8 mg/dL 2.3-4.7 604) [id number] 06:55:00 Test Item Value Reference Range Interpretation Comments MAGNESIUM (BEAKER) (test code = 1.9 mg/dL 1.6-2.6 627) CBC W/PLT COUNT & AUTO [id number] 06:12:00 Test Item Value Reference Range Interpretation Comments WHITE BLOOD CELL COUNT (BEAKER) 10.1 K/ L 3.5-10.5 (test code = 775) RED BLOOD CELL COUNT (BEAKER) 3.03 M/ L 3.93-5.22 L (test code = 761) HEMOGLOBIN (BEAKER) (test code = 9.3 GM/DL 11.2-15.7 L 410) HEMATOCRIT (BEAKER) (test code = 28.5 % 34.1-44.9 L 411) MEAN CORPUSCULAR VOLUME (BEAKER) 94.1 fL 79.4-94.8 (test code = 753) MEAN CORPUSCULAR HEMOGLOBIN 30.7 pg 25.6-32.2 (BEAKER) (test code = 751) MEAN CORPUSCULAR HEMOGLOBIN CONC 32.6 GM/DL 32.2-35.5 (BEAKER) (test code = 752) RED CELL DISTRIBUTION WIDTH 13.4 % 11.7-14.4 (BEAKER) (test code = 412) PLATELET COUNT (BEAKER) (test 151 K/CU MM 150-450 code = 756) MEAN PLATELET VOLUME (BEAKER) 10.5 fL 9.4-12.3 (test code = 754) NUCLEATED RED BLOOD CELLS 0 /100 WBC 0-0 (BEAKER) (test code = 413) NEUTROPHILS RELATIVE PERCENT 77 % (BEAKER) (test code = 429) LYMPHOCYTES RELATIVE PERCENT 11 % (BEAKER) (test code = 430) MONOCYTES RELATIVE PERCENT 11 % (BEAKER) (test code = 431) EOSINOPHILS RELATIVE PERCENT 1 % (BEAKER) (test code = 432) BASOPHILS RELATIVE PERCENT 0 % (BEAKER) (test code = 437) NEUTROPHILS ABSOLUTE COUNT 7.78 K/ L 1.56-6.13 H (BEAKER) (test code = 670) LYMPHOCYTES ABSOLUTE COUNT 1.08 K/ L 1.18-3.74 L (BEAKER) (test code = 414) MONOCYTES ABSOLUTE COUNT (BEAKER) 1.09 K/ L 0.24-0.36 H (test code = 415) EOSINOPHILS ABSOLUTE COUNT 0.07 K/ L 0.04-0.36 (BEAKER) (test code = 416) BASOPHILS ABSOLUTE COUNT (BEAKER) 0.02 K/ L 0.01-0.08 (test code = 417) IMMATURE GRANULOCYTES-RELATIVE 1 % 0-1 PERCENT (BEAKER) (test code = 2801) CALCIUM, [id number] 05:58:00 Test Item Value Reference Range Interpretation Comments CALCIUM IONIZED (BEAKER) (test 1.11 mmol/L 1.12-1.27 L code = 698) PH, BLOOD (BEAKER) (test code = 7.38 1810) POCT-GLUCOSE [id number] 22:08:00 Test Item Value Reference Range Interpretation Comments POC-GLUCOSE METER 163 mg/dL 70-110 H TESTED AT [facility] 6720 (BEAKER) (test code = [place] 1538) [id number] POCT-GLUCOSE [id number] 18:05:00 Test Item Value Reference Range Interpretation Comments POC-GLUCOSE METER 215 mg/dL 70-110 H TESTED AT [facility] 6720 (BEAKER) (test code = [place] 1538) [address] POCT-GLUCOSE [id number] 12:33:00 Test Item Value Reference Range Interpretation Comments POC-GLUCOSE METER 287 mg/dL 70-110 H TESTED AT [facility] 6720 (CRISTY) (test code = [place] 1538) [address] TROPONIN [id number] 10:28:00 Test Item Value Reference Range Interpretation Comments TROPONIN I (CRISTY) (test code = 56.87 ng/mL 0.00-0.03 397) Troponin I (TnI) levels must be interpreted [...] (CK)[id number] 10:00:00 Test Item Value Reference Range Interpretation Comments CREATINE KINASE TOTAL (CRISTY) (test 601 U/L 29-200 H code = 380) RAD, CHEST, 1 VIEW, NON [id number] 08:51:00Reason for exam:->SOBShould this be performed at [...] significant change since 08/02/2018. Signed: Rob Navarro Verified Date/Time: 08/03/2018 08:51:22 Reading Location: [facility] Radiology Reading Room [id number] 03:08:00 Test Item Value Reference Range Interpretation Comments FERRITIN (BEAKER) (test code = 361) 207 ng/mL 5-275 VITAMIN B12 AND [id number] 03:08:00 Test Item Value Reference Range Interpretation Comments VITAMIN B12 (BEAKER) (test code = 212 pg/mL 213-816 L 774) FOLATE (BEAKER) (test code = 362) 15.1 ng/mL >=7.0 COMPREHENSIVE METABOLIC [id number] 02:38:00 Test Item Value Reference Range Interpretation Comments TOTAL PROTEIN 5.7 gm/dL 6.0-8.3 L (BEAKER) (test code = 770) ALBUMIN (BEAKER) 3.2 g/dL 3.5-5.0 L (test code = 1145) ALKALINE PHOSPHATASE 55 U/L 40-150 (BEAKER) (test code = 346) BILIRUBIN TOTAL 0.5 mg/dL 0.2-1.2 (BEAKER) (test code = 377) SODIUM (BEAKER) (test 139 meq/L 136-145 code = 381) POTASSIUM (BEAKER) 4.6 meq/L 3.5-5.1 (test code = 379) CHLORIDE (BEAKER) 107 meq/L 98-107 (test code = 382) CO2 (BEAKER) (test 24 meq/L 22-29 code = 355) BLOOD UREA NITROGEN 63 mg/dL 7-21 H (BEAKER) (test code = 354) CREATININE (BEAKER) 2.96 mg/dL 0.57-1.25 H (test code = 358) GLUCOSE RANDOM 205 mg/dL 70-105 H (BEAKER) (test code = 652) CALCIUM (BEAKER) 8.7 mg/dL 8.4-10.2 (test code = 697) AST (SGOT) (BEAKER) 138 U/L 5-34 H (test code = 353) ALT (SGPT) (BEAKER) 28 U/L 6-55 (test code = 347) EGFR (BEAKER) (test 15 mL/min/1.73 ESTIMA ELVA GFR IS code = 1092) sq m NOT ACCURATE CREATININE CLEARANCE IN PREDICTING GLOMERULAR FILTRATION RATE . ESTIMATED GFR I S NOT APPLICABLE FOR DIALYSIS PATIEN TS. [id number] 02:34:00 Test Item Value Reference Range Interpretation Comments PHOSPHORUS (BEAKER) (test code = 4.7 mg/dL 2.3-4.7 604) [id number] 02:34:00 Test Item Value Reference Range Interpretation Comments MAGNESIUM (BEAKER) (test code = 2.0 mg/dL 1.6-2.6 627) IRON, TIBC, % SAT. (WITHOUT FERRITIN)[id number] 02:34:00 Test Item Value Reference Range Interpretation Comments IRON (BEAKER) (test code = 547) 27.0 ug/dL 40.0-160.0 L TOTAL IRON BINDING CAPACITY 221 ug/dL 250-450 L (BEAKER) (test code = 769) IRON % SATURATION (2) (BEAKER) 12 % 20-55 L (test code = 2590) CALCIUM, [id number] 02:26:00 Test Item Value Reference Range Interpretation Comments CALCIUM IONIZED (BEAKER) (test 1.12 mmol/L 1.12-1.27 code = 698) PH, BLOOD (BEAKER) (test code = 7.27 1810) CBC W/PLT COUNT & AUTO [id number] 02:20:00 Test Item Value Reference Range Interpretation Comments WHITE BLOOD CELL COUNT (BEAKER) 12.5 K/ L 3.5-10.5 H (test code = 775) RED BLOOD CELL COUNT (BEAKER) 3.39 M/ L 3.93-5.22 L (test code = 761) HEMOGLOBIN (BEAKER) (test code = 10.4 GM/DL 11.2-15.7 L 410) HEMATOCRIT (BEAKER) (test code = 32.5 % 34.1-44.9 L 411) MEAN CORPUSCULAR VOLUME (BEAKER) 95.9 fL 79.4-94.8 H (test code = 753) MEAN CORPUSCULAR HEMOGLOBIN 30.7 pg 25.6-32.2 (BEAKER) (test code = 751) MEAN CORPUSCULAR HEMOGLOBIN CONC 32.0 GM/DL 32.2-35.5 L (BEAKER) (test code = 752) RED CELL DISTRIBUTION WIDTH 13.6 % 11.7-14.4 (BEAKER) (test code = 412) PLATELET COUNT (BEAKER) (test 155 K/CU MM 150-450 code = 756) MEAN PLATELET VOLUME (BEAKER) 10.4 fL 9.4-12.3 (test code = 754) NUCLEATED RED BLOOD CELLS 0 /100 WBC 0-0 (BEAKER) (test code = 413) NEUTROPHILS RELATIVE PERCENT 83 % (BEAKER) (test code = 429) LYMPHOCYTES RELATIVE PERCENT 8 % (BEAKER) (test code = 430) MONOCYTES RELATIVE PERCENT 9 % (BEAKER) (test code = 431) EOSINOPHILS RELATIVE PERCENT 0 % (BEAKER) (test code = 432) BASOPHILS RELATIVE PERCENT 0 % (BEAKER) (test code = 437) NEUTROPHILS ABSOLUTE COUNT 10.32 K/ L 1.56-6.13 H (BEAKER) (test code = 670) LYMPHOCYTES ABSOLUTE COUNT 1.01 K/ L 1.18-3.74 L (BEAKER) (test code = 414) MONOCYTES ABSOLUTE COUNT (BEAKER) 1.07 K/ L 0.24-0.36 H (test code = 415) EOSINOPHILS ABSOLUTE COUNT 0.01 K/ L 0.04-0.36 L (BEAKER) (test code = 416) BASOPHILS ABSOLUTE COUNT (BEAKER) 0.03 K/ L 0.01-0.08 (test code = 417) IMMATURE GRANULOCYTES-RELATIVE 1 % 0-1 PERCENT (BEAKER) (test code = 2801) RETICULOCYTE [id number] 02:16:00 Test Item Value Reference Range Interpretation Comments RETICULOCYTE COUNT PCT (BEAKER) (test 2.7 % 0.5-1.7 H code = 575) POCT-GLUCOSE [id number] 01:12:00 Test Item Value Reference Range Interpretation Comments POC-GLUCOSE METER 239 mg/dL 70-110 H TESTED AT [place] [address] ([facility]) (test code = JODY [place] 1538) [address] POCT-GLUCOSE [id number] 20:38:00 Test Item Value Reference Range Interpretation Comments POC-GLUCOSE METER 207 mg/dL 70-110 H TESTED AT [place] [address] ([facility]) (test code = [place] 1538) [address] POCT-GLUCOSE [id number] 16:39:00 Test Item Value Reference Range Interpretation Comments POC-GLUCOSE METER 216 mg/dL 70-110 H TESTED AT [place] [address] ([facility]) (test code = [place] 1538) [address] [id number] 12:20:00 Test Item Value Reference Range Interpretation Comments PARTIAL THROMBOPLASTIN TIME 36.6 seconds 22.5-36.0 H ([facility]) (test code = 760) 4 hours after the start of continuous infusion and 4 hours after any rate change POCT-GLUCOSE [id number] 12:03:00 Test Item Value Reference Range Interpretation Comments POC-GLUCOSE METER 206 mg/dL 70-110 H TESTED AT [place] [address] ([facility]) (test code = JODY Gip[facility] 1538) [address] POCT-GLUCOSE [id number] 12:03:00 Test Item Value Reference Range Interpretation Comments POC-GLUCOSE METER 193 mg/dL 70-110 H TESTED AT [place] [address] ([facility]) (test code = JODY G[place] [facility] 1538) [address] POCT-GLUCOSE [id number] 12:02:00 Test Item Value Reference Range Interpretation Comments POC-GLUCOSE METER 234 mg/dL 70-110 H TESTED AT [place] [address] ([facility]) (test code = JODY Gip[place] [facility] 1538) [address] POCT-GLUCOSE [id number] 12:02:00 Test Item Value Reference Range Interpretation Comments POC-GLUCOSE METER 211 mg/dL 70-110 H TESTED AT [place] [address] ([facility]) ([facility] 1538) [address] U/S, RENAL, [id number] 08:45:00Reason for exam:->CKDFINAL REPORT TECHNIQUE: Grayscale ultrasound [...] MDReport Verified Date/Time: 08/02/2018 08:45:50 Reading Location: [address] Radiology Reading Room Electronically signedby: ROB NAVARRO MD on 08/02/2018 08:45 AMPOCT-GLUCOSE [id number] 08:25:00 Test Item Value Reference Range Interpretation Comments POC-GLUCOSE METER 237 mg/dL 70-110 H TESTED AT [place] [address] ([facility]) (test [facility] = [facility] 1538) [id number] 08:19:00 Test Item Value Reference Range Interpretation Comments PARTIAL THROMBOPLASTIN TIME 38.2 seconds 22.5-36.0 H ([facility]) (test code = 760) 4 hours after the start of continuous infusion and 4 hours after any rate change POCT-GLUCOSE [id number] 07:14:00 Test Item Value Reference Range Interpretation Comments POC-GLUCOSE METER 246 mg/dL 70-110 H TESTED AT [place] [address] ([facility]) (test [facility] = [facility] 1538) [address] COMPREHENSIVE METABOLIC [id number] 04:58:00 Test Item Value Reference Range Interpretation Comments TOTAL PROTEIN 5.5 gm/dL 6.0-8.3 L Specimen sligh tly ([facility]) (test code = hemoly zed 770) ALBUMIN ([facility]) 3.1 g/dL 3.5-5.0 L Specimen sl ightly (test code = 1145) hemolyzed ALKALINE PHOSPHATASE 54 U/L 40-150 (AKER) (test code = 346) BILIRUBIN TOTAL 0.7 mg/dL 0.2-1.2 Specimen sli ghtly ([facility]) (test code = hemoly zed 377) SODIUM (BEAKER) (test 135 meq/L 136-145 L code = 381) POTASSIUM (BEAKER) 4.8 meq/L 3.5-5.1 Specimen slightly (test code = 379) hemolyzed CHLORIDE (BEAKER) 108 meq/L 98-107 H (test code = 382) CO2 (BEAKER) (test 18 meq/L 22-29 L code = 355) BLOOD UREA NITROGEN 57 mg/dL 7-21 H (BEAKER) (test code = 354) CREATININE (BEAKER) 2.27 mg/dL 0.57-1.25 H Specimen slightly (test code = 358) hemolyzed GLUCOSE RANDOM 289 mg/dL 70-105 H (BEAKER) (test code = 652) CALCIUM (BEAKER) 8.6 mg/dL 8.4-10.2 (test code = 697) AST (SGOT) (BEAKER) 94 U/L 5-34 H Specimen slightly (test code = 353) hemolyzed ALT (SGPT) (BEAKER) 20 U/L 6-55 Specimen slightly (test code = 347) hemolyzed EGFR (BEAKER) (test 21 mL/min/1.73 ESTIMA ELVA GFR IS code = 1092) sq m NOT ACCURATE CREATININE CLEARANCE IN PREDICTING GLOMERULAR FILTRATION RATE . ESTIMATED GFR I S NOT APPLICABLE FOR DIALYSIS PATIEN TS. [id number] 04:52:00 Test Item Value Reference Range Interpretation Comments PARTIAL THROMBOPLASTIN TIME 37.5 seconds 22.5-36.0 H (BEAKER) (test code = 760) 4 hours after the start of continuous infusion and 4 hours after any rate change RAD, CHEST, 1 VIEW, NON [id number] 04:44:00Reason for exam:->impella positionShould this be performed [...] cardiomediastinal contour. Additional findings: None. Signed: Ochoa Fryeport Verified Date/Time: 08/02/2018 04:44:47 B-TYPE NATRIURETIC FACTOR (BNP)2018-08-02 04:41:00 Test Item Value Reference Range Interpretation Comments B-TYPE NATRIURETIC PEPTIDE 1452 pg/mL 0-100 H (BEAKER) (test code = 700) [id number] 04:40:00 Test Item Value Reference Range Interpretation Comments MAGNESIUM (BEAKER) 2.0 mg/dL 1.6-2.6 Specimen slightly (test code = 627) hemolyzed [id number] 04:40:00 Test Item Value Reference Range Interpretation Comments PHOSPHORUS (BEAKER) 4.7 mg/dL 2.3-4.7 Specimen slightly (test code = 604) hemolyzed URIC [id number] 04:40:00 Test Item Value Reference Range Interpretation Comments URIC ACID (BEAKER) 9.1 mg/dL 2.6-7.2 H Specimen slightly (test code = 773) hemolyzed LACTIC ACID, [id number] 04:31:00 Test Item Value Reference Range Interpretation Comments LACTATE BLOOD 0.9 mmol/L 0.5-2.2 Specimen sligh tly ARTERIAL (2) (BEAKER) hemoly zed (test code = 2874) BLOOD GAS, [id number] 04:25:00 Test Item Value Reference Range Interpretation Comments PH ARTERIAL (BEAKER) (test code = 7.31 7.35-7.45 L 383) PCO2 ARTERIAL (BEAKER) (test code 40 mmHg 35-45 = 384) PO2 ARTERIAL (BEAKER) (test code 90 mmHg 80-90 = 385) O2 SATURATION ARTERIAL (BEAKER) 96.3 % 96.0-97.0 (test code = 386) HCO3 ARTERIAL (BEAKER) (test code 20 mmol/L 21-29 L = 388) BASE EXCESS ARTERIAL (BEAKER) -6.1 mmol/L -2.0-3.0 L (test code = 387) PATIENT TEMPERATURE (BEAKER) 36.7 C (test code = 1818) FIO2 (BEAKER) (test code = 1819) 36.0 % GLUCOSE-STAT [id number] 04:25:00 Test Item Value Reference Range Interpretation Comments GLUCOSE RANDOM (BEAKER) (test code 272 mg/dL 70-110 H = 652) HGB/HCT (H&H) - STAT [id number] 04:25:00 Test Item Value Reference Range Interpretation Comments HEMOGLOBIN (BEAKER) (test code = 10.9 g/dL 12.0-15.0 L 410) HEMATOCRIT (BEAKER) (test code = 32.0 % 36.0-45.0 L 411) CBC W/PLT COUNT & AUTO [id number] 04:24:00 Test Item Value Reference Range Interpretation Comments WHITE BLOOD CELL COUNT (BEAKER) 14.8 K/ L 3.5-10.5 H (test code = 775) RED BLOOD CELL COUNT (BEAKER) 3.43 M/ L 3.93-5.22 L (test code = 761) HEMOGLOBIN (BEAKER) (test code = 10.3 GM/DL 11.2-15.7 L 410) HEMATOCRIT (BEAKER) (test code = 32.3 % 34.1-44.9 L 411) MEAN CORPUSCULAR VOLUME (BEAKER) 94.2 fL 79.4-94.8 (test code = 753) MEAN CORPUSCULAR HEMOGLOBIN 30.0 pg 25.6-32.2 (BEAKER) (test code = 751) MEAN CORPUSCULAR HEMOGLOBIN CONC 31.9 GM/DL 32.2-35.5 L (BEAKER) (test code = 752) RED CELL DISTRIBUTION WIDTH 13.2 % 11.7-14.4 (BEAKER) (test code = 412) PLATELET COUNT (BEAKER) (test 171 K/CU MM 150-450 code = 756) MEAN PLATELET VOLUME (BEAKER) 10.1 fL 9.4-12.3 (test code = 754) NUCLEATED RED BLOOD CELLS 0 /100 WBC 0-0 (BEAKER) (test code = 413) NEUTROPHILS RELATIVE PERCENT 84 % (BEAKER) (test code = 429) LYMPHOCYTES RELATIVE PERCENT 9 % (BEAKER) (test code = 430) MONOCYTES RELATIVE PERCENT 7 % (BEAKER) (test code = 431) EOSINOPHILS RELATIVE PERCENT 0 % (BEAKER) (test code = 432) BASOPHILS RELATIVE PERCENT 0 % (BEAKER) (test code = 437) NEUTROPHILS ABSOLUTE COUNT 12.38 K/ L 1.56-6.13 H (BEAKER) (test code = 670) LYMPHOCYTES ABSOLUTE COUNT 1.30 K/ L 1.18-3.74 (BEAKER) (test code = 414) MONOCYTES ABSOLUTE COUNT (BEAKER) 1.04 K/ L 0.24-0.36 H (test code = 415) EOSINOPHILS ABSOLUTE COUNT 0.00 K/ L 0.04-0.36 L (BEAKER) (test code = 416) BASOPHILS ABSOLUTE COUNT (BEAKER) 0.02 K/ L 0.01-0.08 (test code = 417) IMMATURE GRANULOCYTES-RELATIVE 1 % 0-1 PERCENT (BEAKER) (test code = 2801) CALCIUM, [id number] 04:22:00 Test Item Value Reference Range Interpretation Comments CALCIUM IONIZED (BEAKER) (test 1.20 mmol/L 1.12-1.27 code = 698) PH, BLOOD (BEAKER) (test code = 7.31 1810) SODIUM NA-STAT [id number] 04:21:00 Test Item Value Reference Range Interpretation Comments SODIUM (BEAKER) (test code = 381) 136 meq/L 135-148 POTASSIUM-STAT [id number] 04:21:00 Test Item Value Reference Range Interpretation Comments POTASSIUM (BEAKER) (test code = 4.6 meq/L 3.6-5.5 379) LACTIC ACID, [id number] 00:13:00 Test Item Value Reference Range Interpretation Comments LACTATE BLOOD ARTERIAL (2) 0.7 mmol/L 0.5-2.2 (BEAKER) (test code = 2874) SODIUM NA-STAT [id number] 23:59:00 Test Item Value Reference Range Interpretation Comments SODIUM (BEAKER) (test code = 381) 136 meq/L 135-148 POTASSIUM-STAT [id number] 23:59:00 Test Item Value Reference Range Interpretation Comments POTASSIUM (BEAKER) (test code = 4.8 meq/L 3.6-5.5 379) BLOOD GAS, [id number] 23:59:00 Test Item Value Reference Range Interpretation Comments PH ARTERIAL (BEAKER) (test code = 7.31 7.35-7.45 L 383) PCO2 ARTERIAL (BEAKER) (test code 42 mmHg 35-45 = 384) PO2 ARTERIAL (BEAKER) (test code 78 mmHg 80-90 L = 385) O2 SATURATION ARTERIAL (BEAKER) 94.7 % 96.0-97.0 L (test code = 386) HCO3 ARTERIAL (BEAKER) (test code 21 mmol/L 21-29 = 388) BASE EXCESS ARTERIAL (BEAKER) -5.2 mmol/L -2.0-3.0 L (test code = 387) PATIENT TEMPERATURE (BEAKER) 36.7 C (test code = 1818) FIO2 (BEAKER) (test code = 1819) 36.0 % GLUCOSE-STAT [id number] 23:59:00 Test Item Value Reference Range Interpretation Comments GLUCOSE RANDOM (BEAKER) (test code 275 mg/dL 70-110 H = 652) HGB/HCT (H&H) - STAT [id number] 23:59:00 Test Item Value Reference Range Interpretation Comments HEMOGLOBIN (BEAKER) (test code = 11.3 g/dL 12.0-15.0 L 410) HEMATOCRIT (BEAKER) (test code = 33.0 % 36.0-45.0 L 411) [id number] 21:53:00 Test Item Value Reference Range Interpretation Comments PARTIAL THROMBOPLASTIN TIME 63.4 seconds 22.5-36.0 H (BEAKER) (test code = 760) 4 hours after the start of continuous infusion and 4 hours after any rate change COMPREHENSIVE METABOLIC [id number] 19:43:00 Test Item Value Reference Range Interpretation Comments TOTAL PROTEIN 5.8 gm/dL 6.0-8.3 L Specimen sligh tly (BEAKER) (test code = hemoly zed 770) ALBUMIN (BEAKER) 3.3 g/dL 3.5-5.0 L Specimen sl ightly (test code = 1145) hemolyzed ALKALINE PHOSPHATASE 57 U/L 40-150 (BEAKER) (test code = 346) BILIRUBIN TOTAL 0.9 mg/dL 0.2-1.2 Specimen sli ghtly (BEAKER) (test code = hemoly zed 377) SODIUM (BEAKER) (test 137 meq/L 136-145 code = 381) POTASSIUM (BEAKER) 4.8 meq/L 3.5-5.1 Specimen slightly (test code = 379) hemolyzed CHLORIDE (BEAKER) 109 meq/L 98-107 H (test code = 382) CO2 (BEAKER) (test 20 meq/L 22-29 L code = 355) BLOOD UREA NITROGEN 56 mg/dL 7-21 H (BEAKER) (test code = 354) CREATININE (BEAKER) 2.26 mg/dL 0.57-1.25 H Specimen slightly (test code = 358) hemolyzed GLUCOSE RANDOM 235 mg/dL 70-105 H (BEAKER) (test code = 652) CALCIUM (BEAKER) 9.2 mg/dL 8.4-10.2 (test code = 697) AST (SGOT) (BEAKER) 27 U/L 5-34 Specimen slightly (test code = 353) hemolyzed ALT (SGPT) (BEAKER) 13 U/L 6-55 Specimen slightly (test code = 347) hemolyzed EGFR (BEAKER) (test 21 mL/min/1.73 ESTIMA ELVA GFR IS code = 1092) sq m NOT ACCURATE CREATININE CLEARANCE IN PREDICTING GLOMERULAR FILTRATION RATE . ESTIMATED GFR I S NOT APPLICABLE FOR DIALYSIS PATIEN TS. Call k > 5, [id number] 19:41:00 Test Item Value Reference Range Interpretation Comments SODIUM (BEAKER) (test 137 meq/L 136-145 code = 381) POTASSIUM (BEAKER) 4.8 meq/L 3.5-5.1 Specimen slightly (test code = 379) hemolyzed CHLORIDE (BEAKER) 109 meq/L 98-107 H (test code = 382) CO2 (BEAKER) (test 20 meq/L 22-29 L code = 355) Call k > 5, [id number] 19:37:00 Test Item Value Reference Range Interpretation Comments PROTIME (BEAKER) (test code = 33.9 seconds 11.9-14.2 H 759) INR (BEAKER) (test code = 370) 3.6 <=5.9 PARTIAL THROMBOPLASTIN TIME 85.5 seconds 22.5-36.0 H (BEAKER) (test code = 760) Effective 07/18/2018: PT Reference Range ChangeNew: 11.9-14.2 Previous: 11.7- 14.7RECOMMENDED COUMADIN/WARFARIN INR THERAPY RANGESSTANDARD DOSE: 2.0-3.0 Includes: PROPHYLAXIS for venous thrombosis, systemic embolization; TREATMENT for venous thrombosis and/or pulmonary embolus.HIGH RISK: Target INR is2.5-3.5 for patients wiht mechanical heart valves.[id number] 19:36:00 Test Item Value Reference Range Interpretation Comments FIBRINOGEN LEVEL (BEAKER) (test 336 mg/dl 225-434 code = 658) LACTIC ACID, [id number] 19:34:00 Test Item Value Reference Range Interpretation Comments LACTATE BLOOD 1.3 mmol/L 0.5-2.2 Specimen sligh tly ARTERIAL (2) (BEAKER) hemoly zed (test code = 2874) CBC (HEMOGRAM ONLY)2018-08-01 19:23:00 Test Item Value Reference Range Interpretation Comments WHITE BLOOD CELL COUNT (BEAKER) 14.1 K/ L 3.5-10.5 H (test code = 775) RED BLOOD CELL COUNT (BEAKER) 3.68 M/ L 3.93-5.22 L (test code = 761) HEMOGLOBIN (BEAKER) (test code = 11.3 GM/DL 11.2-15.7 410) HEMATOCRIT (BEAKER) (test code = 34.6 % 34.1-44.9 411) MEAN CORPUSCULAR VOLUME (BEAKER) 94.0 fL 79.4-94.8 (test code = 753) MEAN CORPUSCULAR HEMOGLOBIN 30.7 pg 25.6-32.2 (BEAKER) (test code = 751) MEAN CORPUSCULAR HEMOGLOBIN CONC 32.7 GM/DL 32.2-35.5 (BEAKER) (test code = 752) RED CELL DISTRIBUTION WIDTH 13.1 % 11.7-14.4 (BEAKER) (test code = 412) PLATELET COUNT (BEAKER) (test 207 K/CU MM 150-450 code = 756) MEAN PLATELET VOLUME (BEAKER) 9.9 fL 9.4-12.3 (test code = 754) NUCLEATED RED BLOOD CELLS 0 /100 WBC 0-0 (BEAKER) (test code = 413) BLOOD GAS, [id number] 19:16:00 Test Item Value Reference Range Interpretation Comments PH ARTERIAL (BEAKER) (test code = 7.35 7.35-7.45 383) PCO2 ARTERIAL (BEAKER) (test code 39 mmHg 35-45 = 384) PO2 ARTERIAL (BEAKER) (test code 50 mmHg 80-90 L = 385) O2 SATURATION ARTERIAL (BEAKER) 84.5 % 96.0-97.0 L (test code = 386) HCO3 ARTERIAL (BEAKER) (test code 21 mmol/L 21-29 = 388) BASE EXCESS ARTERIAL (BEAKER) -4.5 mmol/L -2.0-3.0 L (test code = 387) PATIENT TEMPERATURE (BEAKER) 36.7 C (test code = 1818) FIO2 (BEAKER) (test code = 1819) 36.0 % GLUCOSE-STAT [id number] 19:16:00 Test Item Value Reference Range Interpretation Comments GLUCOSE RANDOM (BEAKER) (test code 231 mg/dL 70-110 H = 652) HGB/HCT (H&H) - STAT [id number] 19:16:00 Test Item Value Reference Range Interpretation Comments HEMOGLOBIN (BEAKER) (test code = 11.5 g/dL 12.0-15.0 L 410) HEMATOCRIT (BEAKER) (test code = 34.0 % 36.0-45.0 L 411) CALCIUM, [id number] 19:15:00 Test Item Value Reference Range Interpretation Comments CALCIUM IONIZED (BEAKER) (test 1.26 mmol/L 1.12-1.27 code = 698) PH, BLOOD (BEAKER) (test code = 7.35 1810) OXYGEN SATURATION, [id number] 19:14:00 Test Item Value Reference Range Interpretation Comments O2 SATURATION (MEASURED) (BEAKER) 41.9 % (test code = 1455) SODIUM NA-STAT [id number] 19:14:00 Test Item Value Reference Range Interpretation Comments SODIUM (BEAKER) (test code = 381) 138 meq/L 135-148 POTASSIUM-STAT [id number] 19:14:00 Test Item Value Reference Range Interpretation Comments POTASSIUM (BEAKER) (test code = 4.7 meq/L 3.6-5.5 379) [id number] 16:45:00 Test Item Value Reference Range Interpretation Comments ACTIVATED CLOTTING TIME 389 sec TEST ED AT [place] [address] ([facility]) (test code = JODY [place] [facility] 441) [id number] HEMOGLOBIN AND [id number] 16:38:00 Test Item Value Reference Range Interpretation Comments HEMOGLOBIN ([facility]) (test code = 10.1 GM/DL 11.2-15.7 L 410) HEMATOCRIT ([facility]) (test code = 31.6 % 34.1-44.9 L 411) PLATELET AGGREGATION: FUNCTION [id number] 16:05:00 Test Item Value Reference Range Interpretation Comments WEAK ADP 34 % 60-91 L RESULT([facility]) (test code = 2135) PLATELET FUNCTION 0-39% indicates marked SCREEN INTERP platelet dysfunction ([facility]) (test code = 2173) [id number] Talia Villarreal MD ([facility]) (test code = (electronic signature) 6340) PLATELET COUNT AGG 186 K/CU MM 150-450 ([facility]) (test code = 2656) Platelet Function Screen results may be falsely low with platelet counts<100,000/cu mm.[id number] 15:02:00 Test Item Value Reference Range Interpretation Comments ACTIVATED CLOTTING TIME 411 sec TEST ED AT [place] [address] ([facility]) (test code = JODY G[place] [facility] 441) [address] POCT-GLUCOSE [id number] 12:17:00 Test Item Value Reference Range Interpretation Comments POC-GLUCOSE METER 103 mg/dL 70-110 TESTED AT [place] [address] ([facility]) (test code = JODY Gip[place] [facility] 1538) [address] POCT-GLUCOSE [id number] 08:18:00 Test Item Value Reference Range Interpretation Comments POC-GLUCOSE METER 388 mg/dL 70-110 H TESTED AT [place] [address] ([facility]) (test code = JODY Gipson [facility] 1538) [address] HEPATIC FUNCTION [id number] 08:09:00 Test Item Value Reference Range Interpretation Comments TOTAL PROTEIN (AKER) 6.2 gm/dL 6.0-8.3 Speci men slightly (test code = 770) hemolyzed ALBUMIN ([facility]) (test 3.4 g/dL 3.5-5.0 L Speci men slightly code = 1145) hemolyzed BILIRUBIN TOTAL 0.4 mg/dL 0.2-1.2 Specimen sli ghtly (BEAKER) (test code = hemoly zed 377) BILIRUBIN DIRECT 0.1 mg/dL 0.1-0.5 Specimen sl ightly (BEAKER) (test code = hemoly zed 706) ALKALINE PHOSPHATASE 59 U/L 40-150 (BEAKER) (test code = 346) AST (SGOT) (BEAKER) 19 U/L 5-34 Specimen slightly (test code = 353) hemolyzed ALT (SGPT) (BEAKER) 10 U/L 6-55 Specimen slightly (test code = 347) hemolyzed TROPONIN [id number] 06:39:00 Test Item Value Reference Range Interpretation Comments TROPONIN I (BEAKER) (test code = 0.26 ng/mL 0.00-0.03 HH 397) Troponin I (TnI) levels must be interpreted [...] acidosis, acute neurological disease, and persistent tachyarrhythmia.POCT-GLUCOSE [id number] 06:36:00 Test Item Value Reference Range Interpretation Comments POC-GLUCOSE METER 415 mg/dL 70-110 HH [facility] (test code = [place] 1538) [address] BASIC METABOLIC [id number] 06:10:00 Test Item Value Reference Range Interpretation Comments SODIUM (BEAKER) 135 meq/L 136-145 L (test code = 381) POTASSIUM (BEAKER) 4.9 meq/L 3.5-5.1 Specimen slightly (test code = 379) hemolyzed CHLORIDE (BEAKER) 104 meq/L 98-107 (test code = 382) CO2 (BEAKER) (test 21 meq/L 22-29 L code = 355) BLOOD UREA NITROGEN 53 mg/dL 7-21 H (BEAKER) (test code = 354) CREATININE (BEAKER) 2.28 mg/dL 0.57-1.25 H Specimen slightly (test code = 358) hemolyzed GLUCOSE RANDOM 473 mg/dL 70-105 HH (BEAKER) (test code = 652) CALCIUM (BEAKER) 8.7 mg/dL 8.4-10.2 (test code = 697) EGFR (BEAKER) (test 21 mL/min/1.73 ESTIMA ELVA GFR IS code = 1092) sq m NOT ACCURATE CREATININE CLEARANCE IN PREDICTING GLOMERULAR FILTRATION RATE . ESTIMATED GFR I S NOT APPLICABLE FOR DIALYSIS PATIEN TS. [id number] 06:03:00 Test Item Value Reference Range Interpretation Comments MAGNESIUM (BEAKER) 2.2 mg/dL 1.6-2.6 Specimen slightly (test code = 627) hemolyzed THROMBIN [id number] 05:09:00 Test Item Value Reference Range Interpretation Comments THROMBIN TIME (BEAKER) (test code = 64.9 secs 13.8-20.0 H 550) Draw baseline aPTT prior to [id number] 05:08:00 Test Item Value Reference Range Interpretation Comments PARTIAL THROMBOPLASTIN TIME 43.1 seconds 22.5-36.0 H (BEAKER) (test code = 760) Draw baseline aPTT prior to infusionPROTHROMBIN [id number] 05:07:00 Test Item Value Reference Range Interpretation Comments PROTIME (BEAKER) (test code = 15.0 seconds 11.9-14.2 H 759) INR (BEAKER) (test code = 370) 1.2 <=5.9 Effective 07/18/2018: PT Reference Range ChangeNew: 11.9-14.2 Previous: 11.7- 14.7RECOMMENDED COUMADIN/WARFARIN INR THERAPY RANGESSTANDARD DOSE: 2.0-3.0 Includes: PROPHYLAXIS for venous thrombosis, systemic embolization; TREATMENT for venous thrombosis and/or pulmonary embolus.HIGH RISK: Target INR is2.5-3.5 for patients wiht mechanical heart valves.Draw baseline aPTT prior to infusion CBC W/PLT COUNT & AUTO [id number] 04:59:00 Test Item Value Reference Range Interpretation Comments WHITE BLOOD CELL COUNT (BEAKER) 7.0 K/ L 3.5-10.5 (test code = 775) RED BLOOD CELL COUNT (BEAKER) 3.82 M/ L 3.93-5.22 L (test code = 761) HEMOGLOBIN (BEAKER) (test code = 11.7 GM/DL 11.2-15.7 410) HEMATOCRIT (BEAKER) (test code = 35.9 % 34.1-44.9 411) MEAN CORPUSCULAR VOLUME (BEAKER) 94.0 fL 79.4-94.8 (test code = 753) MEAN CORPUSCULAR HEMOGLOBIN 30.6 pg 25.6-32.2 (BEAKER) (test code = 751) MEAN CORPUSCULAR HEMOGLOBIN CONC 32.6 GM/DL 32.2-35.5 (BEAKER) (test code = 752) RED CELL DISTRIBUTION WIDTH 12.8 % 11.7-14.4 (BEAKER) (test code = 412) PLATELET COUNT (BEAKER) (test 225 K/CU MM 150-450 code = 756) MEAN PLATELET VOLUME (BEAKER) 10.5 fL 9.4-12.3 (test code = 754) NUCLEATED RED BLOOD CELLS 0 /100 WBC 0-0 (BEAKER) (test code = 413) NEUTROPHILS RELATIVE PERCENT 87 % (BEAKER) (test code = 429) LYMPHOCYTES RELATIVE PERCENT 10 % (BEAKER) (test code = 430) MONOCYTES RELATIVE PERCENT 2 % (BEAKER) (test code = 431) EOSINOPHILS RELATIVE PERCENT 0 % (BEAKER) (test code = 432) BASOPHILS RELATIVE PERCENT 0 % (BEAKER) (test code = 437) NEUTROPHILS ABSOLUTE COUNT 6.10 K/ L 1.56-6.13 (BEAKER) (test code = 670) LYMPHOCYTES ABSOLUTE COUNT 0.72 K/ L 1.18-3.74 L (BEAKER) (test code = 414) MONOCYTES ABSOLUTE COUNT (BEAKER) 0.14 K/ L 0.24-0.36 L (test code = 415) EOSINOPHILS ABSOLUTE COUNT 0.00 K/ L 0.04-0.36 L (BEAKER) (test code = 416) BASOPHILS ABSOLUTE COUNT (BEAKER) 0.01 K/ L 0.01-0.08 (test code = 417) IMMATURE GRANULOCYTES-RELATIVE 1 % 0-1 PERCENT (BEAKER) (test code = 2801) RAD, CHEST, 1 VIEW, NON [id number] 04:33:00Reason for exam:->preopShould this be performed at the bedside?->YesFINAL REPORT RAD, CHEST, 1 VIEW, NON DEPT INDICATION: preop COMPARISON: Prior day's exam FINDINGS: Portable frontal view of the chest. IMPRESSION: Support Lines: Stable. Lungs and pleura: Unchanged airspace and pleural opacities. No pneumothorax.Heart and mediastinum: Stable contours. Additional findings: None. Signed: Socorro Méndez Verified Date/Time: 08/01/2018 04:33:15 RAD, CHEST, 1 VIEW, NON [id number] 00:02:00Reason for exam:->Intraaortic balloon pump insertionShould this [...] cervical spine. Signed: Socorro Méndez Verified Date/Time: 08/01/2018 00:02:19 Electronically signed by: SOCORRO MÉNDEZ MD on08/01/2018 12:02 AMTSH/FREE T4 IF [id number] 21:34:00 Test Item Value Reference Range Interpretation Comments THYROID STIMULATING HORMONE 0.99 uIU/mL 0.35-4.94 (CRISTY) (test code = 772) TROPONIN [id number] 21:26:00 Test Item Value Reference Range Interpretation Comments TROPONIN I (CRISTY) (test code = 0.28 ng/mL 0.00-0.03 397) Troponin I (TnI) levels must be interpreted [...] 2018-07-31 21:20:00 Test Item Value Reference Range Interpretation Comments B-TYPE NATRIURETIC PEPTIDE (BEAKER) 633 pg/mL 0-100 H (test code = 700) RAD, CHEST, 1 VIEW, NON [id number] 21:20:00Reason for exam:->unstable anginaShould this be performed [...] MDReport Verified Date/Time: 07/31/2018 21:20:52 Reading Location: [address] Consult Reading Room BASI METABOLIC [id number] 21:18:00 Test Item Value Reference Range Interpretation Comments SODIUM (BEAKER) 137 meq/L 136-145 (test code = 381) POTASSIUM (BEAKER) 4.6 meq/L 3.5-5.1 (test code = 379) CHLORIDE (BEAKER) 104 meq/L 98-107 (test code = 382) CO2 (BEAKER) (test 25 meq/L 22-29 code = 355) BLOOD UREA NITROGEN 47 mg/dL 7-21 H (BEAKER) (test code = 354) CREATININE (BEAKER) 2.18 mg/dL 0.57-1.25 H (test code = 358) GLUCOSE RANDOM 223 mg/dL 70-105 H (BEAKER) (test code = 652) CALCIUM (BEAKER) 9.1 mg/dL 8.4-10.2 (test code = 697) EGFR (BEAKER) (test 22 mL/min/1.73 ESTIMA ELVA GFR IS code = 1092) sq m NOT ACCURATE CREATININE CLEARANCE IN PREDICTING GLOMERULAR FILTRATION RATE . ESTIMATED GFR I S NOT APPLICABLE FOR DIALYSIS PATIEN TS. HEPATIC FUNCTION [id number] 21:15:00 Test Item Value Reference Range Interpretation Comments TOTAL PROTEIN (BEAKER) (test code = 6.8 gm/dL 6.0-8.3 770) ALBUMIN (BEAKER) (test code = 1145) 3.8 g/dL 3.5-5.0 BILIRUBIN TOTAL (BEAKER) (test code 0.6 mg/dL 0.2-1.2 = 377) BILIRUBIN DIRECT (BEAKER) (test 0.3 mg/dL 0.1-0.5 code = 706) ALKALINE PHOSPHATASE (BEAKER) (test 67 U/L 40-150 code = 346) AST (SGOT) (BEAKER) (test code = 14 U/L 5-34 353) ALT (SGPT) (BEAKER) (test code = 10 U/L 6-55 347) [id number] 20:57:00 Test Item Value Reference Range Interpretation Comments PARTIAL THROMBOPLASTIN TIME 27.7 seconds 22.5-36.0 (BEAKER) (test code = 760) PROTHROMBIN [id number] 20:56:00 Test Item Value Reference Range Interpretation Comments PROTIME (BEAKER) (test code = 13.1 seconds 11.9-14.2 759) INR (BEAKER) (test code = 370) 1.0 <=5.9 Effective 07/18/2018: PT Reference Range ChangeNew: 11.9-14.2 Previous: 11.7- 14.7RECOMMENDED COUMADIN/WARFARIN INR THERAPY RANGESSTANDARD DOSE: 2.0-3.0 Includes: PROPHYLAXIS for venous thrombosis, systemic embolization; TREATMENT for venous thrombosis and/or pulmonary embolus.HIGH RISK: Target INR is2.5-3.5 for patients wiht mechanical heart valves.CBC W/PLT COUNT & AUTO [id number] 20:50:00 Test Item Value Reference Range Interpretation Comments WHITE BLOOD CELL COUNT (BEAKER) 8.4 K/ L 3.5-10.5 (test code = 775) RED BLOOD CELL COUNT (BEAKER) 4.23 M/ L 3.93-5.22 (test code = 761) HEMOGLOBIN (BEAKER) (test code = 13.0 GM/DL 11.2-15.7 410) HEMATOCRIT (BEAKER) (test code = 41.2 % 34.1-44.9 411) MEAN CORPUSCULAR VOLUME (BEAKER) 97.4 fL 79.4-94.8 H (test code = 753) MEAN CORPUSCULAR HEMOGLOBIN 30.7 pg 25.6-32.2 (BEAKER) (test code = 751) MEAN CORPUSCULAR HEMOGLOBIN CONC 31.6 GM/DL 32.2-35.5 L (BEAKER) (test code = 752) RED CELL DISTRIBUTION WIDTH 12.8 % 11.7-14.4 (BEAKER) (test code = 412) PLATELET COUNT (BEAKER) (test 230 K/CU MM 150-450 code = 756) MEAN PLATELET VOLUME (BEAKER) 9.9 fL 9.4-12.3 (test code = 754) NUCLEATED RED BLOOD CELLS 0 /100 WBC 0-0 (BEAKER) (test code = 413) NEUTROPHILS RELATIVE PERCENT 87 % (BEAKER) (test code = 429) LYMPHOCYTES RELATIVE PERCENT 12 % (BEAKER) (test code = 430) MONOCYTES RELATIVE PERCENT 1 % (BEAKER) (test code = 431) EOSINOPHILS RELATIVE PERCENT 0 % (BEAKER) (test code = 432) BASOPHILS RELATIVE PERCENT 0 % (BEAKER) (test code = 437) NEUTROPHILS ABSOLUTE COUNT 7.32 K/ L 1.56-6.13 H (BEAKER) (test code = 670) LYMPHOCYTES ABSOLUTE COUNT 0.98 K/ L 1.18-3.74 L (BEAKER) (test code = 414) MONOCYTES ABSOLUTE COUNT (BEAKER) 0.08 K/ L 0.24-0.36 L (test code = 415) EOSINOPHILS ABSOLUTE COUNT 0.00 K/ L 0.04-0.36 L (BEAKER) (test code = 416) BASOPHILS ABSOLUTE COUNT (BEAKER) 0.01 K/ L 0.01-0.08 (test code = 417) IMMATURE GRANULOCYTES-RELATIVE 0 % 0-1 PERCENT (BEAKER) (test code = 2801) [id number] 19:45:00 Test Item Value Reference Range Interpretation Comments TROPONIN-I (test 0.18 ng/mL 0.00-0.05 HH RESULTS KRYSTINA LED TO code = TROPI) SOLITARIO SCHUMACHER A T 1945 06[birth year]08[birth year]19.Ligia Jarrett CRITICAL VALUE READ BACK BY NURSE AND VE RIFIED BY TECH? Y<0.05 Normal0.06 - 0. 39 Consistent with circulating Tro ponin with possible Myocardial inju ry.>0.40 Consi stent with Myocardial inju ry extens diandra enough to conform with AMI as d efined by WHO. COMPREHENSIVE METABOLIC [id number] 16:08:00 Test Item Value Reference Range Interpretation Comments SODIUM (test code = 139 mmol/L 136-145 N NA) POTASSIUM (test code 4.3 mmol/L 3.5-5.1 N = K) CHLORIDE (test code = 106 mmol/L 98-107 N CL) CARBON DIOXIDE (test 28 mmol/L 21-32 N code = CO2) GLUCOSE (test code = 255 mg/dL 65-99 H GLU) BLOOD UREA NITROGEN 47 mg/dL 7-18 H (test code = BUN) GLOMERULAR FILTRATION 20 Report ing units: RATE (test code = ml/min/1.7 3m\\S\\2 GFR) (Modified MDRD Formula)If age < 18 years, GFR is n ot applicable. KD/ DOQI Clinical Practi ce Guidelines: Sta ge 1: Kidney damage w /normal or increased GF R >90Stage 2: Kid erica damage w/mild d ecrease in GFR 60 - 89Stage 3: Mode rate decrease in GFR 30 - 59Stage 4: [place] re decrease in GFR 15 - 29Stage 5: Kidn ey failure < 15 (or rosey lysis) CREATININE (test code 2.5 mg/dL 0.6-1.0 H = CREAT) TOTAL PROTEIN (test 7.6 g/dL 6.4-8.2 N code = PROT) ALBUMIN (test code = 3.9 g/dL 3.4-5.0 N ALB) GLOBULIN (test code = 3.7 gm/dL 2.3-3.5 H GLOB) ALBUMIN/GLOBULIN 1.1 1.5-2.2 L RATIO (test code = A/G) CALCIUM (test code = 9.7 mg/dL 7.8-10.9 N CA) BILIRUBIN TOTAL (test 0.3 mg/dL 0.0-1.1 N code = BILT) SGOT/AST (test code = 19 U/L 15-37 N Report ing units: AST) International U nits/L SGPT/ALT (test code = 18 U/L 10-30 N Report ing units: ALT) International U nits/L ALKALINE PHOSPHATASE 119 U/L 45-117 H TOTAL (test code = ALKP) - XR CHEST 1 [id number] 15:43:00 FAX: Rhett Jo [phone] Camps: ER St: REG Name: [facility] : 1940 Age/S: 78/F [address] Unit #: [id number] Loc: [place], [place] [address] Phys: Rhett Sams MD Acct: [id number] Dis Date: Status: REG ER PHONE #: [phone] Exam Date: 07/28/2018 1527 FAX #: [phone] Reason: CP EXAMS: CPT CODE: [id number] XR CHEST 1 V 18733 Examination: Chest 1 view Location code: S17 Comparison: None Discussion: Clinical history is remarkable for chest tightness. Cardiac silhouette is slightly enlarged, atherosclerotic change present. There are coarsened interstitial changes present bilaterally, mild bilateral parenchymal basilar scarring noted. Impression: 1. Coarsened interstitial changes with likely bilateral basilar parenchymal scarring. at 1183 Reported and signed by: YUAN BUNN M.D. CC: Rhett Sams MDTechnologist: HESHAM FONG RT,(R) ARRT Transcribed Date/Time/By: 07/28/2018 (4793) :[id number] Orig Print D/T: S: 07/28/2018 (5252) Automated exposure control, iterative reconstruction technique, and/oradjustment of mA and/or kV according to patient's size was utilizedfor optimum radiation dose reduction. PAGE 1 Signed Report TROPONIN I [id number] 15:37:00 Test Item Value Reference Range Interpretation Comments TROPONIN I RAPID 0.03 NG/ML 0.00-0.08 N 0.00 - 0.08 (test code = Normal0.09 - 0. 40 TROPIRAP) Indeterminate f or AMI 0.41 and above Compatible with AMI CHEMISTRY 8 [id number] 15:36:00 Test Item Value Reference Range Interpretation Comments IONIZED CALCIUM (test code = 1.19 mmol/L 1.13-1.32 N CAIABG) ISTAT-TCO2 VENOUS (test code = 26 MMOL/L 24-30 N TCO2VP) ISTAT-HEMOGLOBIN (test code = 13.9 G/DL 12.0-16.0 N HBP) ISTAT-HEMATOCRIT (test code = 41 % 44.0-56.0 L HCTP) ISTAT-SODIUM (test code = NAP) 140 MMOL/L 136-145 N ISTAT-POTASSIUM (test code = KP) 4.4 MMOL/L 3.5-5.1 N ISTAT-CHLORIDE (test code = CLP) 102 MMOL/L 98-107 N ISTAT GLUCOSE (test code = GLUP) 260 MG/DL 65-99 H ISTAT-BUN (test code = BUNP) 47 MG/DL 7-18 H BEDSIDE CREATININE (test code = 2.6 MG/DL 0.6-1.0 H CREATBED) CBC W/AUTO [id number] 15:34:00 Test Item Value Reference Range Interpretation Comments WHITE BLOOD CELL (test code = 8.6 K/mm3 4.8-10.8 N WBC) RED BLOOD CELL (test code = RBC) 4.37 M/mm3 4.2-5.4 N HEMOGLOBIN (test code = HGB) 13.5 gm/DL 12.0-16.0 N HEMATOCRIT (test code = HCT) 39.6 % 34.7-43.3 N MEAN CELL VOLUME (test code = 90.6 fL 81-99 N MCV) MEAN CELL HGB (test code = MCH) 30.9 pg 27-31 N MEAN CELL HGB CONCETRATION (test 34.1 gm/dL 33-37 N code = MCHC) RED CELL DISTRIBUTION WIDTH (test 12.7 % 11.5-14.5 N code = RDW) PLATELET COUNT (test code = PLT) 217 X10(3) 130-400 N MEAN PLATELET VOLUME (test code = 9.9 fL 9.4-12.4 N MPV) NEUTROPHIL % (test code = NT%) 71.3 % 51.5-79.7 N IMMATURE GRANULOCYTE % (test code 0.500 % 0.108-0.322 H = IG%) LYMPHOCYTE % (test code = LY%) 18.1 % 14-40 N MONOCYTE % (test code = MO%) 7.2 % 4.0-10.2 N EOSINOPHIL % (test code = EO%) 2.3 % 0-4.1 N BASOPHIL % (test code = BA%) 0.6 % 0.1-0.7 N NUCLEATED RBC % (test code = 0 % 0-0 N NRBC%) NEUTROPHIL # (test code = NT#) 6.1 K/mm3 2.5-8.6 N IMMATURE GRANULOCYTE # (test code 0.040 K/mm3 0.0052-0.0224 H = IG#) LYMPHOCYTE # (test code = LY#) 1.6 K/mm3 1.1-3.6 N MONOCYTE # (test code = MO#) 0.6 K/mm3 0.3-0.9 N EOSINOPHIL # (test code = EO#) 0.20 # 0.0-0.4 N BASOPHIL # (test code = BA#) 0.05 K/mm3 0.0-0.2 N NUCLEATED RBC # (test code = 0.00 K/mm3 0.00-0.20 N NRBC#)
--- OUTSIDE RECORDS SUMMARY | 2019-07-25 13:27 | XMS REPORT ---
:1940 Author Organization eClinicalWorks Care Team Providers Name Role Phone John Perry Provider Role Unavailable Allergies No Known Allergies Problems Problem Type Condition Code Onset Dates Condition Statu s Problem Mixed hyperlipidemia E78.2 Active Problem H/O [...] Problem Proteinuria, unspecified R80.9 Act diandra Problem NSTEMI (non-ST elevated myocardial I21.4 Active infarction) Problem Cervical stenosis (uterine cervix) N88.2 Active Problem Coronary artery disease involving I25.110 Active [place] coronary artery of [place] heart with unstable angina pectoris Problem Adult BMI 36.0-36.9 kg/sq m Z68.36 Active Problem Stented coronary artery Z95.5 Acti ve Problem 3-vessel coronary artery disease I25.10 Active Problem Atherosclerosis of [place] coronary I25.10 Active artery Problem 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 Ac tive classified elsewhere Problem Other osteoporosis M81.8 Active Problem At risk for falling Z91.81 Active 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
--- OUTSIDE RECORDS SUMMARY | 2019-07-25 13:27 | XMS REPORT ---
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
--- OUTSIDE RECORDS SUMMARY | 2019-07-25 13:27 | XMS REPORT ---
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
--- OUTSIDE RECORDS SUMMARY | 2019-07-25 13:27 | XMS REPORT ---
[...] Assessment Coronary artery disease involving I25.[address] [place] coronary artery of [place] heart with unstable angina pectoris Assessment assisted current 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 Z79.4 Active Assessment [...] Problem Coronary artery disease involving I25.[address] [place] coronary artery of [place] heart with unstable angina pectoris Assessment Cervical stenosis of spine M48.02 A ctive Problem Adult BMI 36.0-36.9 kg/sq m Z68.36 Active Assessment Adult BMI 36.0-36.9 kg/sq m Z68.36 Active Problem Stented coronary artery Z95.5 Acti ve Assessment H/O stroke without residual Z86.73 Active deficits Problem 3-vessel coronary artery disease I25.10 Active Assessment 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 Ac tive classified elsewhere Problem Atherosclerosis of [place] coronary I25.10 Active artery Assessment Hypertensive heart disease without I11.9 Active heart failure Problem 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 Ac tive classified elsewhere Assessment Left sided numbness R20.0 Active Problem Other osteoporosis M81.8 Active Assessment Proteinuria, unspecified R80.9 Act diandra Problem At risk for falling Z91.81 Active Assessment History of coronary artery stent Z95.5 Active placement Problem intermediate card tender current 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 Z79.4 Active Assessment Mixed hyperlipidemia E78.2 Active Problem Cervical stenosis of spine M48.02 A ctive Problem Chronic kidney disease, stage 4 N18.4 Active (severe) Problem Hypertensive heart disease without I11.9 Active heart failure Medications Medication Code Code Instructions Start End Status Dosage System Date Date Ranolazine ER [facility] 43481599210 500 MG Oral Active TA KE 1 TABLET BY MOUTH TWICE A DAY Lactobacillus NDC 0 Active not define d Calcitriol [facility] 89657081730 0.5 MCG Active TAKE 1 CAPSULE BY MOUTH EVERY DAY Folic Acid [facility] 23955031423 1 MG Active TAKE 1 TABLET BY MOUTH EVERY DAY Bumetanide [facility] 94868507446 1 MG Oral Active TAKE 1 TABLET BY MOUTH TWICE A DAY Ranolazine ER [facility] 12435044721 500 MG Orally May Active 1 tablet Twice a day 2019 Nitrostat [facility] 68557432834 0.4 MG Active as directe d Sublingual 3 doses within 15 minutes PRN CHEST PAIN Senna S [facility] 55788054216 8.6-50 MG Active 1 tablet i n Orally Once a the evenin g day as needed Protonix [facility] 05253426775 40 MG Orally Active 1 pack et Once a day mixed with apple juice or applesauce Cyanocobalamin [facility] [address]-34 1000 MCG Active 1 tablet Orally Once a day Tradjenta [facility] 83581892525 5 MG Orally Active 1 tabl et Once a day Calcitriol [facility] 21559446756 0.5 MCG Orally Active 1 capsule Once a day Brilinta [facility] 42287883991 90 MG Orally Chyna Active 1 tabl et Twice a day 2019 Aspir-Low ND 46597854041 81 MG Orally Active 1 tab let Once a day Cranberry [facility] 46942-08862 Active not define d Extract Brilinta [facility] 87741997519 90 MG Oral Active TAKE 1 TABLET BY MOUTH TWICE A DAY Clopidogrel [facility] 40977722805 75 MG Orally Inactive 1 tablet Bisulfate Once a day BD Pen Needle [facility] 17100270504 31G X 5 MM Active USE Mini U/F DIRECTED Atorvastatin [facility] 81910234567 80 MG Active TAKE 1 Calcium TABLET BY MOUTH EVERY DAY Tresiba [facility] 98721222898 200 UNIT/ML Active 14 units FlexTouch Subcutaneous daily Thiamine HCl [facility] 35801725423 100 MG Orally Active 1 tablet Once a day Lipitor [facility] 20858831864 80 MG Orally Active 1 table t Once a day Vitamin D-3 [facility] 03654869157 5000 UNIT Active as dir ected Orally Ferrous Sulfate [facility] 16785713222 325 (65 Fe) MG Activ e TAKE 1 Oral TABLET BY MOUTH TWICE A DAY Metoprolol [facility] 50241024089 50 MG Orally Active 1 ta blet Tartrate Twice a day with food Results No Known Results Summary Purpose eClinicalWorks Submission
[2019-07-25 15:35] LABS: Absolute Lymphocytes (CBC) 1.1 K/uL (0.7-4.9); Basophils % 0.5 % (0-1.3); Hematocrit 36.9 % (36.0-45.0); Lymphocytes % 16.4 % (15.3-44.8); MPV 8.6 fL (7.6-11.3); RBC Red Blood Cell Count 3.93 M/uL (3.86-4.86)
--- NOTE | 2019-07-25 15:47 | RAD REPORT ---
EXAM DESCRIPTION: RAD - Foot Right 3 View - 07/25/2019 3:05 pm CLINICAL HISTORY: pain, swelling, bilateral soft tissue infection, no specific site noted COMPARISON: None FINDINGS: No fracture, dislocation or periosteal reaction. No clearly destructive bone process seen. On 1 of the three views there is faint lucency in the medial margin of the first toe distal phalanx. Bones are osteopenic overall making it difficult to evaluate for subtle cortical change. Correlation needed regarding any evidence for infection in the right first toe. No other evidence for bone erosion or destruction. No air or foreign body in the soft tissues. Patien t has a moderately large plantar spur. No air or foreign body in the soft tissues. IMPRESSION: No definitive bone destructive changes seen. There is faint lucent change in the medial tuft first distal phalanx. This is only seen on 1 of the t hree views. Correlation is needed with any evidence for soft tissue infection distal first toe.
--- NOTE | 2019-07-25 15:48 | RAD REPORT ---
EXAM DESCRIPTION: RAD - Foot Left 3 View - 07/25/2019 3:05 pm CLINICAL HISTORY: pain, swelling, bilateral foot infection without sites specified COMPARISON: Foot Left 3 View dated 06/29/2016; Foot Left 3 View dated 05/30/2016 FINDINGS: No fracture, dislocation or periosteal reaction. No acute or destructive bony process. Alfonso ankita are osteopenic. Moderately large plantar spur present. No air or foreign body in the soft tissues. Foot findings are not substantially different from the 2017 comparison. IMPRESSION: Negative left foot examination for acute or destructive finding.
--- NOTE | 2019-07-25 15:56 | ER ---
Nurse's Notes [facility] Name: Suzan Gonzalez Age: 79 yrs Sex: Female : 1940 Arrival Date: 07/25/2019 Time: 12:58 Bed 24 Private MD: Arturo Rosenbaum E; Patel, Mitesh Diagnosis: Cellulitis of left lower limb-foot;Cellulitis of right lower limb-foot Presentation: 07/24 13:08 Chief complaint: Patient's son or daughter states: was seen by Dr. Rosenbaum and was told iw she has an infection in both of her feet, started on antibiotics, pain was so severe last night and can't walk, has hx of osteo, was started on amoxicillin , was also scheduled for heart cath on Monday , states her feet don't look bad but she has a lot of pain and that's hat happened last time she needed IV antibiotics. Coronavirus screen: Proceed with normal triage. Patient denies a cough. Patient denies shortness of breath or difficulty breathing. Patient denies measured and/or subjective temperature greater than 100.4F prior to today's visit. Patient denies travel on a cruise ship or to a country the [facility]NOTE 3] currently lists as an affected area. Patient denies contact with known and/or suspected case of COVID-19. Ebola Screen: Patient negative for fever greater than or equal to 101.5 degrees Fahrenheit, and additional compatible Ebola Virus Disease symptoms Patient denies exposure to infectious person. Patient denies travel to an Ebola-affected area in the 21 days before illness onset. No symptoms or risks identified at this time. Initial Sepsis Screen: Does the patient meet any 2 criteria? No. Patient's initial sepsis screen is negative. Does the patient have a suspected source of infection? No. Patient's initial sepsis screen is negative. Risk Assessment: Do you want to hurt yourself or someone else? Patient reports no desire to harm self or others. Onset of symptoms was July 25, 2019. 13:08 Method Of Arrival: Wheelchair iw 13:08 Acuity: ESRGIO 3 iw Triage Assessment: 15:32 General: Appears in no apparent distress. comfortable, Behavior is calm, cooperative. ls4 Musculoskeletal: Circulation, motion, and sensation intact. Capillary refill < 3 seconds, Range of motion: intact in all extremities, Swelling absent. Historical: - Allergies: 13:11 "every pain narcotic"; iw 13:11 Bactrim; iw 13:11 Benadryl; iw 13:11 Iodine; iw 13:11 Levaquin; iw 13:11 Levofloxacin; iw 13:11 Morphine; iw 13:11 Sulfa (Sulfonamide Antibiotics); iw - Home Meds: 13:14 atorvastatin 80 mg oral tab 1 tab once daily [Active]; bumetanide 1 mg Oral tab 1 tab 2 iw times per day [Active]; metoprolol tartrate 100 mg Oral tab 1 tab 2 times per day [Active]; calcitriol 0.5 mcg oral cap 1 cap once daily [Active]; Tradjenta 5 mg oral tab 1 tab once daily [Active]; Tresiba FlexTouch U-100 100 unit/mL (3 mL) subcutaneous inpn daily [Active]; nitroglycerin 0.4 mg SL subl 1 tab every 5 minutes [Active]; Ranexa 500 mg oral Tb12 1 tab 2 times per day [Active]; BRILINTA 90 mg oral tab 1 tab 2 times per day [Active]; aspirin 81 mg Oral chew 1 tab once daily [Active]; Probiotic oral oral daily [Active]; - PMHx: 13:11 Diabetes - NIDDM; kidney problems; iw - PSHx: 13:11 Angioplasty; iw - Immunization history:: Adult Immunizations up to date. - Social history:: Smoking status: Patient denies any tobacco usage or history of. Screenin:01 Abuse screen: Denies threats or abuse. Denies injuries from another. Nutritional ls4 screening: No deficits noted. Tuberculosis screening: No symptoms or risk factors identified. Fall Risk None identified. Assessment: 14:01 Pain: Complains of pain in right foot and left foot Pain currently is 7 out of 10 on a ls4 pain scale. Quality of pain is described as aching, Aggravated by weight bearing. Neuro: No deficits noted. Cardiovascular: Denies chest pain, diaphoresis, fatigue, lightheadedness, nausea, palpitations, shortness of breath, syncope, vomiting, Rhythm is regular Chest pain is denied. Respiratory: Airway is patent Respiratory effort is even, unlabored, Respiratory pattern is regular, Breath sounds are clear bilaterally. Denies cough, labored breathing, pain with respiration, pain with cough, pain with movement, air hunger. Derm: Skin is healthy with good turgor, Skin is dry, Skin is normal, toes, bilaterally reddened and pat reports pain in toes. 15:30 Reassessment: Patient appears in no apparent distress at this time. Patient and/or ls4 family updated on plan of care and expected duration. Pain level reassessed. Patient is alert, oriented x 3, equal unlabored respirations, skin warm/dry/pink. Vital Signs: 13:08 BP 153 / 62; Pulse 65; Resp 16; Temp 98.4; Pulse Ox 98% on R/A; Weight 70.76 kg; Height iw 5 ft. 1 in. (154.94 cm); Pain 10/10; 15:30 BP 150 / 64; Pulse 66; Resp 16; Temp 98.2(O); Pulse Ox 100% on R/A; Pain 7/10; ls4 13:08 Body Mass Index 29.48 (70.76 kg, 154.94 cm) iw ED Course: 12:58 Patient arrived in ED. as 12:59 John Perry DO is Private Physician. as 12:59 Arturo Rosenbaum DPM is Private Physician. as 13:11 Triage completed. iw 13:11 Arm band placed on. iw 14:01 Patient has correct armband on for positive identification. Side rails up X 1. Side ls4 rails up X2. 14:01 director multimedia on. Pulse ox on. NIBP on. Warm blanket given. Pillow given. Verbal ls4 reassurance given. Diet: Patient given a diabetic meal tray. 14:12 Arturo Muir PA is PHCP. [facility] 14:12 Suraj Barkley MD is Attending Physician. [facility] 14:30 Kristie King, SOLITARIO is Primary Nurse. ls4 15:05 Foot Right 3 View XRAY In Process Unspecified. EDMS 15:05 Foot Left 3 View XRAY In Process Unspecified. EDMS 15:27 No provider procedures requiring assistance completed. Initial lab(s) drawn, by me, ls4 sent to lab. Urine collected: clean catch specimen, clear, X-ray(s) taken. Inserted saline lock: 20 gauge in right antecubital area, using aseptic technique. Blood collected. Patient maintains SpO2 saturation greater than 95% on room air. 15:55 Mino Hdez DO is Hospitalizing Provider. garrettm 16:27 John Perry DO is Referral Physician. kb 16:30 IV discontinued, intact, bleeding controlled, No redness/swelling at site. Pressure ls4 dressing applied. Administered Medications: 16:48 Drug: Rocephin 1 grams Route: IV; Rate: calculated rate; Site: right antecubital; ls4 16:58 Follow up: IV Status: Completed infusion; IV Intake: 10ml ls4 Intake: 16:58 IV: 10ml; Total: 10ml. ls4 Outcome: 15:56 Decision to Hospitalize by Provider. jmm 16:28 Discharge ordered by MD. kb 17:14 Discharged to home via wheelchair, with family. ls4 17:14 Condition: good 17:14 Discharge instructions given to patient, family, Instructed on discharge instructions, follow up and referral plans. medication usage, safety practices, Demonstrated understanding of instructions, follow-up care, medications. 17:14 Patient left the ED. ls4 Signatures: Dispatcher [employer] EDMS Reva Ramírez, SARAH-C PROGRAM AIDE-Arturo Escobedo PA PA jmm Martinez, Amelia as Williams, Irene, Kristie Mejias RN, SOLITARIO RN ls4
--- NOTE | 2019-07-25 15:57 | EDPHYS ---
Physician Documentation [facility] Name: Suzan Gonzalez Age: 79 yrs Sex: Female : 1940 Arrival Date: 07/25/2019 Time: 12:58 Bed 24 Private MD: Arturo Rosenbaum E; Patel, Mitesh ED Physician Suraj Barkley HPI: 07/24 14:24 This 79 yrs old Female presents to ER via Wheelchair with complaints of Foot jmm Pain - infection. 14:24 The patient presents with pain, swelling. Onset: The symptoms/episode began/occurred jmm gradually. Modifying factors: The symptoms are alleviated by elevating leg, the symptoms are aggravated by movement, weight bearing. This is a 79 year oold female with a history of DM, CKD that presents to the ED with complaints of bilateral feet pain and swelling. Patient was seen by Dr. Rosenbaum and prescribed abx. patient states pain has worsened. Denies fever or chills, similar episode with previous diagnoses with osteomyelitis. . Historical: - Allergies: 13:11 "every pain narcotic"; iw 13:11 Bactrim; iw 13:11 Benadryl; iw 13:11 Iodine; iw 13:11 Levaquin; iw 13:11 Levofloxacin; iw 13:11 Morphine; iw 13:11 Sulfa (Sulfonamide Antibiotics); iw - Home Meds: 13:14 atorvastatin 80 mg oral tab 1 tab once daily [Active]; bumetanide 1 mg Oral tab 1 tab 2 iw times per day [Active]; metoprolol tartrate 100 mg Oral tab 1 tab 2 times per day [Active]; calcitriol 0.5 mcg oral cap 1 cap once daily [Active]; Tradjenta 5 mg oral tab 1 tab once daily [Active]; Tresiba FlexTouch U-100 100 unit/mL (3 mL) subcutaneous inpn daily [Active]; nitroglycerin 0.4 mg SL subl 1 tab every 5 minutes [Active]; Ranexa 500 mg oral Tb12 1 tab 2 times per day [Active]; BRILINTA 90 mg oral tab 1 tab 2 times per day [Active]; aspirin 81 mg Oral chew 1 tab once daily [Active]; Probiotic oral oral daily [Active]; - PMHx: 13:11 Diabetes - NIDDM; kidney problems; iw - PSHx: 13:11 Angioplasty; iw - Immunization history:: Adult Immunizations up to date. - Social history:: Smoking status: Patient denies any tobacco usage or history of. ROS: 14:24 Constitutional: Negative for fever, chills, and weight loss, Cardiovascular: Negative [facility] for chest pain, palpitations, and edema, Respiratory: Negative for shortness of breath, cough, wheezing, and pleuritic chest pain. 14:24 MS/extremity: Positive for erythema, pain. 14:24 All other systems are negative. Exam: 14:24 Constitutional: This is a well developed, well nourished patient who is awake, alert, jmm and in no acute distress. Cardiovascular: Regular rate and rhythm. No edema appreciated Respiratory: Normal respirations, no respiratory distress appreciated 14:24 Musculoskeletal/extremity: erythema noted to the left and right toes throughout, < 2 sec dist cap refill, diffusely ttp. 14:24 Skin: erythema noted to the feet bilaterally. 14:24 Neuro: Orientation: is normal, Mentation: is normal, Memory: is normal. 14:24 Psych: Behavior/mood is pleasant, cooperative. Vital Signs: 13:08 BP 153 / 62; Pulse 65; Resp 16; Temp 98.4; Pulse Ox 98% on R/A; Weight 70.76 kg; Height iw 5 ft. 1 in. (154.94 cm); Pain 10/10; 15:30 BP 150 / 64; Pulse 66; Resp 16; Temp 98.2(O); Pulse Ox 100% on R/A; Pain 7/10; ls4 13:08 Body Mass Index 29.48 (70.76 kg, 154.94 cm) MDM: 14:24 Patient medically screened. [facility] 15:53 Data reviewed: vital signs, nurses notes. Counseling: I had a detailed discussion with [facility] the patient and/or guardian regarding: the historical points, exam findings, and any diagnostic results supporting the discharge/admit diagnosis, the need for further work-up and treatment in the hospital. ED course: I discussed the patient with Jose Leon, whom accepts patient to Dr. Ketty rodriguez. . 07/24 14:29 Order name: CBC with Diff; Complete Time: 16:33 [facility] 07/24 14:29 Order name: CMP; Complete Time: 16:06 [facility] 07/24 14:29 Order name: Procalcitonin; Complete Time: 16:33 [facility] 07/24 14:29 Order name: ESR; Complete Time: 16:33 [facility] 07/24 14:29 Order name: Foot Right 3 View XRAY; Complete Time: 15:57 [facility] 07/24 14:29 Order name: Foot Left 3 View XRAY; Complete Time: 15:57 [facility] 07/24 14:29 Order name: Saline Lock; Complete Time: 15:27 [facility] 07/24 16:16 Order name: Urine Dipstick--Ancillary (enter results); Complete Time: 06:40 em1 Administered Medications: 16:48 Drug: Rocephin 1 grams Route: IV; Rate: calculated rate; Site: right antecubital; ls4 16:58 Follow up: IV Status: Completed infusion; IV Intake: 10ml ls4 Disposition: 17:29 Co-signature as Attending Physician, Suraj Barkley MD I agree with the assessment and kdr plan of care. Disposition: 07/25/19 16:28 Discharged to Home. Impression: Cellulitis of left lower limb - foot, Cellulitis of right lower limb - foot. - Condition is Stable. - Discharge Instructions: Cellulitis, Adult, [id number]. - Medication Reconciliation Form, Thank You Letter, Antibiotic Education, Prescription Opioid Use form. - Follow up: Emergency Department; When: As needed; Reason: Worsening of condition. Follow up: John Perry DO; When: 2 - 3 days; Reason: Recheck today's complaints, Continuance of care, Re-evaluation by your physician. Signatures: Dispatcher [employer] Reva Elena, GARMENT TURNER-C GARMENT TURNER-Ckb Suraj Barkley MD MD kdr Mickail, Joel, PA PA Nissa Monroe, RN RN Jose Knight GARMENT TURNER-C GARMENT TURNER-Cla1 Kristie King, SOLITARIO RN ls4 Corrections: (The following items were deleted from the chart) 16:27 15:56 Hospitalization Ordered by Mino Hdez DO for Inpatient Admission. Preliminary kb diagnosis is Cellulitis of the Feet. Bed requested for Telemetry/MedSurg (Inpatient). Status is Inpatient Admission. Condition is Stable. Problem is an acute exacerbation. Symptoms have worsened. vasquez 17:14 16:28 07/25/2019 16:28 Discharged to Home. Impression: Cellulitis of left lower limb - ls4 foot; Cellulitis of right lower limb - foot. Condition is Stable. Forms are Medication Reconciliation Form, Thank You Letter, Antibiotic Education, Prescription Opioid Use. Follow up: Emergency Department; When: As needed; Reason: Worsening of condition. Follow up: John Perry; When: 2 - 3 days; Reason: Recheck today's complaints, Continuance of care, Re-evaluation by your physician. kb
[2019-07-25 16:05] LABS: Albumin 3.5 g/dL (3.4-5.0); Bilirubin Total 0.4 mg/dL (0.2-1.0); Potassium 4.2 mmol/L (3.5-5.1); Protein, Total 7.1 g/dL (6.4-8.2)
[2019-07-25] MEDS ORDERED: CEFTRIAXONE/SWI 1gm 1 GM/10 ML SYR ONE (16:52)
[2019-07-25 17:18] LABS: Urine Blood NEGATIVE (NEG); Urine Glucose 2+ (NEG); Urine Protein 1+ (NEG); Urine Specific Gravity 1.025 (1.005-1.030)
[2019-07-25 17:20] VITALS: BP 150/64; TEMP 98.2; O2SAT 100
--- NOTE | 2019-07-25 17:26 | P.CNS ---
Date of Consult: 07/25/19 Reason for Consult: ER evaluation for possible admission Requesting Physician: Suraj Barkley Primary Care Provider: Dr. Perry; Nephrology-Dr. King; Cardiology-Dr. Arteaga Chief Complaint: right toe pain History of Present Illness: 79-year-old female with multiple medical problems including severe CAD, hypertension, hyperlipidemia, diabetes mellitus type 2, chronic renal disease stage 4, and Sabianism. Patient presented to the emergency room after she was seen by Podiatry yesterday for her right toe. Patient was evaluated by podiatry. There was some mild inflammation to the skin of her great toe. She was given antibiotic therapy. She has not started this. She came to the ER due to increasing pain. The patient was evaluated in the emergency room. X-ray shows note destructive changes to the bone. White count within normal range. CBC otherwise unremarkable. BMP stable from prior. I was asked to evaluate the patient for possible admission. Patient does not meet criteria for admission at this time. Allergies iodine [Iodine] Allergy (Severe, Verified 11/20/18 20:58) throat swelling morphine Allergy (Severe, Verified 05/27/19 03:20) paralysis diphenhydramine HCl [From Benadryl] Allergy (Verified 11/20/18 20:58) Anaphylaxis Sulfa (Sulfonamide Antibiotics) Allergy (Verified 11/20/18 20:58) Nausea/Vomiting sulfamethoxazole [From Bactrim] Allergy (Verified 11/20/18 20:58) Nausea/Vomiting trimethoprim [From Bactrim] Allergy (Verified 11/20/18 20:58) Nausea/Vomiting levofloxacin [From Levaquin] Adverse Reaction (Severe, Verified 11/20/18 20:58) vomiting metoclopramide [From Reglan] Adverse Reaction (Verified 11/20/18 20:58) Nausea/Vomiting promethazine [From Phenergan] Adverse Reaction (Verified 11/20/18 20:58) Nausea/Vomiting Narcotics Allergy (Severe, Uncoded 05/27/19 03:20) Anaphylaxis Home medications list reviewed: Yes Home Medications: Atorvastatin Calcium [Lipitor] 80 mg PO BEDTIME 08/22/18 Bumetanide [Bumex*] 1 mg PO BID 08/22/18 Clopidogrel Bisulfate [Plavix*] 75 mg PO DAILY 08/22/18 Folic Acid 1 mg PO DAILY 08/22/18 Nitroglycerin [Nitrostat*] 0.4 mg SL SEECOM 08/22/18 Linagliptin [Tradjenta] 5 mg PO DAILY 09/10/18 calcitrioL [Calcitriol] 1 cap PO DAILY 11/20/18 Aspirin Chewable [Aspirin Chewable*] 1 tab PO DAILY 05/27/19 Insulin Degludec [Tresiba Flextouch U-200] 12 units SQ DAILY 05/27/19 Metoprolol Tartrate [Lopressor*] 1 tab PO BID 05/27/19 Pantoprazole Sodium [Protonix] 1 tab PO DAILY 05/27/19 Ashlee Probiotics 1 cap PO DAILY 05/27/19 Ranolazine [Ranexa] 500 mg PO BID #60 tab.er.12h 05/27/19 - Past Medical/Surgical History Diabetic: Yes -: Diabetes mellitus type 2 -: Hypertension -: Chronic renal disease stage 4 -: Broken tani shoulders, toes tani feet, L elbow hx -: Cataract -: History DVT to the left lower extremity -: Hyperlipidemia -: CAD with multiple stents -: Peripheral vascular disease -: Carotid arterial disease -: History of osteomyelitis -: Severe cervical spine disease -: heart stents 8-9x; last one was Mar 2019 -: 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 She has 6 children - Family History Father Medical History: GI disease, Cancer Notes: stomach Mother Medical History: GI disease, Stroke, Other (see notes) Notes: brain tumor Brother Medical History: Heart disease, Hypertension, Diabetes, Kidney disease Notes: stomach CA Sister Medical History: Heart disease, Hypertension, GI disease - Social History Smoking Status: Never smoker Alcohol use: No CD- Drugs: No Caffeine use: Yes Place of Residence: Home Review of Systems General: As per HPI Eyes: Unremarkable ENT: Unremarkable Respiratory: Unremarkable Cardiovascular: Unremarkable Gastrointestinal: Unremarkable Genitourinary: Unremarkable Musculoskeletal: As per HPI Integumentary: As per HPI Neurological: Unremarkable Lymphatics: Unremarkable Physical Examination Temp Pulse Resp BP Pulse Ox 98.2 F 66 16 150/64 H 07/25/19 15:30 07/25/19 15:30 07/25/19 15:30 07/25/19 15:30 General: Alert, In no apparent distress, Oriented x3, Cooperative HEENT: Atraumatic Neck: Supple Respiratory: Clear to auscultation bilaterally, Normal air movement Cardiovascular: Normal pulses, Regular rate/rhythm Gastrointestinal: No guarding Musculoskeletal: Other (Mild erythema to the right great toe. No ulcer identified. No exudate noted.) Neurological: Normal speech, Normal strength at 5/5 x4 extr, Normal tone, Normal affect Laboratory Data (last 24 hrs) 07/25/19 15:19: Sodium 136, Potassium 4.2, BUN 62 H, Creatinine 3.72 H, Glucose 262 H, Total Bilirubin 0.4, AST 17, ALT 18, Alkaline Phosphatase 121 H 07/25/19 15:19: WBC 6.8, Hgb 12.3, Hct 36.9, Plt Count 216 Conclusions/Impression: Impression: Right great toe cellulitis Severe CAD Chronic renal disease stage IV Diabetes mellitus type 2 Plan: Patient evaluated. No need for admission at this time. 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 Since the patient has not started her antibiotic therapy. She will continue with this at discharge. Patient will be provided medication for pain. Patient will follow up with Podiatry on Monday to further evaluate. Patient may require MRI in the future if this persists. Patient is to have a heart catheterization on Monday of next week. This is in preparation for CABG to be done in [place]. Patient has chronic renal disease stage IV. This remained stable. Patient may require future dialysis if her condition declines. Patient will follow up with her multiple specialists as recommended. Case discussed with ER provider. Plan of care is agreed upon. Patient to be discharged from the emergency room. Time Spent Managing Pts care (In Minutes): 55
== END 2019-07-25 17:14 | disposition home or self-care (01) ==
LOC: ER 12:55
DX: L03.116 Cellulitis of left lower limb (principal); L03.115 Cellulitis of right lower limb; Z88.6 Allergy status to analgesic agent; Z88.2 Allergy status to sulfonamides; E11.22 Type 2 diabetes mellitus with diabetic chronic kidney disease; I12.9 Hypertensive chronic kidney disease with stage 1 through stage 4 chronic kidney disease, or unspecified chronic kidney disease; N18.4 Chronic kidney disease, stage 4 (severe); I13.10 Hypertensive heart and chronic kidney disease without heart failure, with stage 1 through stage 4 chronic kidney disease, or unspecified chronic kidney disease; Z91.09 Other allergy status, other than to drugs and biological substances
CPT/HCPCS: 85025; 36415; 85652; 81003; 80053; 84145; 73630 ×2; 96374; 99285; J0696

== ENCOUNTER 2019-07-30 06:35 | Day surgery (SDC) | payer OTHER ==
[2019-07-30] MEDS ORDERED: LIDOCAINE 1% MPF 30 ML VIAL ONE (06:44)
[2019-07-30] MEDS ORDERED: HEPA 1000U/500MLS 1,000 UNIT/500 ML BAG IV ONE (06:44)
--- OUTSIDE RECORDS SUMMARY | 2019-07-30 06:46 | XMS REPORT | Clinical Summary ---
:[address] [facility] Address [address] [place] [address] Care Team Providers Name Role Phone Marcos Perry Primary Care Provider Unavailable Spenser Salvador Unavailable Sanaz [employer] Bro[employer] Allergies Active Allergy Reactions Severity Noted Date [...] of spine 01/30/2019 Coronary artery disease involving [place] coronary simran ry of [place] heart 01/30/2019 H/O stroke without residual deficits [...] FADI Reece MD 12/20/2018 Hospital Encounter Cardiology [place], NSTEMI (n on-ST elevated myocardial infarction) ([facility]) (Primary Dx); - Papito Braswell, Unstable angina (HCC) 12/25/2018 Puneet García MD 12/20/2018 Travel 11/12/2018 Spencer Vazquez & FADI Reece MD 11/11/2018 Orders Only General Internal Medicine 11/10/2018 Hospital Encounter Cardiology Spencer Todd NSTEMI s/ p Impella PCI by Dr. Todd 08/01/18 (Primary Dx); - MD Дмитрий Coronary artery disease involving [place] coronary artery of [place] heart with unstable angina pectoris (HCC); 11/13/2018 Daya Fair Unstable angina ([facility]); MD Tiffanie Acute kidney in jury superimposed on CKD ([facility]) 11/10/2018 Travel 09/13/2018 Documentation Research PaulaloboIveth 09/13/2018 Documentation Research Iveth Aguilar 08/21/2018 Documentation Transplant Haley Delacruz 08/07/2018 Surgery Spencer Todd R & Francisco Javier CATH / MD Дмитрий CORONARY ANGIOS / PCI 08/02/2018 Travel 08/01/2018 Surgery Spencer Todd CATH & PCI MD Дмитрий 08/01/2018 Anesthesia Event Sajan Mendoza MD 07/31/2018 Hospital Encounter Cardiology Tina Christianson Unstable angina ([facility]) (Primary Dx); Devin Thurman MD CKD (chronic kidney disease) stage 4, GF R 15-29 ml/min ([facility]); 08/20/2018 Deo Sung, NSTEMI (non-ST elevated myocardial infarction) ([facility]); Acute hypoxemic respiratory failure ([facility] ); Edie OTIS (acute kidn ey injury) ([facility]); MD Daniel NSTEMI s/p Impella PCI by Dr. Todd 08/01; Spencer Todd Anemia of renal disease; MD Дмитрий Refusal of bloo d transfusions as patient is Bahai 07/31/2018 Orders Only General Internal Medicine after 07/29/2018 Social History Tobacco Use Types Packs/Day Years [...] Not on file Implants Implanted Type Area Educational Paraprofessional Device Shelf Model / Identifier Expiration Serial / Date Lot Stent Synergy Mr 2.43m88rh [id number] - [id number] IMPLANTS N/A: [employer] [id number] 04/04/2020 [id number] / Implanted: Qty: 1 on 08/01/2018 by Spencer Todd MD [place] SCI:INTERV / CARDIOLOGY [id number] Stent [employer] Mr 2.54t09rm [id number] - [id number] IMPLANTS N/A: [place] [id number] 04/04/2020 [id number] / Implanted: Qty: 1 on 08/01/2018 by Spencer Todd MD [place] SCI:INTERV / CARDIOLOGY [id number] Stent [employer] Mr 2.64q05kw [id number] - [id number] IMPLANTS N/A: B[place]ON [id number] 04/01/2020 [id number] / Implanted: Qty: 1 on 08/01/2018 by Spencer Todd MD [place] SCI:INTERV / CARDIOLOGY [id number] Stent [employer]nergy Otw 3.88t60hp [id number] - [id number] IMPLANTS Left: BOSTON [id number] 05/16/2020 [id number] / Implanted: Qty: 1 on 08/07/2018 by Spencer Todd MD [place] SCI:INTERV / CARDIOLOGY [id number] Stent [employer]nergy Otw 2.19g23ug [id number] - [id number] IMPLAN TS Right: BOSTON [id number] 04/30/2020 [id number] / Implanted: Qty: 1 on 08/07/2018 by Spencer Todd MD [place] SCI:INTERV / CARDIOLOGY [id number] Stent [employer]nergy Otw 2.91d01wl [id number] - [id number] IMPLAN TS Right: B[place]ON [id number] 05/21/2020 [id number] / Implanted: Qty: 1 on 08/07/2018 by Spencer Todd MD [place] SCI:INTERV / CARDIOLOGY [id number] Stent [employer] Mr 3.64b15mt [id number] - [id number] IMPLANTS Right: B[place]ON [id number] 04/10/2020 [id number] / Implanted: Qty: 1 on 08/07/2018 by Spencer Todd MD [place] SCI:INTERV / CARDIOLOGY [id number] Stent [employer]nergy Otw 3.02d04pq [id number] - [id number] IMPLAN TS Right: BOSTON [id number] 04/15/2020 [id number] / Implanted: Qty: 1 on 08/07/2018 by Spencer Todd MD [place] SCI:INTERV / CARDIOLOGY [id number] Stent [employer]nergy Otw [id number] - [id number] IMPLANTS BOSTON [id number] 08/07/2020 [id number] / Implanted: Qty: 1 on 11/12/2018 by Spencer Todd MD SCI:INTERV / CARDIOLOGY [id number] Stent [employer] Mr 3.87u84uh [id number] - [id number] IMPLANTS Right: BOSTON [id number] 09/25/2020 [id number] / Implanted: Qty: 1 on 03/22/2019 by Spencer Todd MD [place] SCI:INTERV / CARDIOLOGY [id number] Procedures Procedure Name Priority Date/Time Associated Comments [...] section. VASCULAR DIAGRAM -SCAN 03/27/2019 2:02 PM MANAGER ENGLISH RHYTHM STRIP - SCAN 03/26/2019 2:31 PM MANAGER ENGLISH VASCULAR DIAGRAM -SCAN 03/26/2019 8:41 AM MANAGER ENGLISH REPORT OF PROCEDURE - 03/26/2019 8:41 ENDOSCOPY SCAN AM MANAGER ENGLISH CARDIAC CATH REPORT - 03/26/2019 8:41 SCAN AM MANAGER ENGLISH CARDIAC CATH REPORT - 03/26/2019 8:41 SCAN AM MANAGER ENGLISH RHYTHM STRIP - SCAN 03/26/2019 8:41 AM MANAGER ENGLISH PERIPHERAL VASCULAR 03/23/2019 9:20 REPORT - SCAN PM MANAGER ENGLISH POCT-GLUCOSE METER Routine 03/23/2019 11:39 Resul ts for this AM MANAGER ENGLISH procedure are i n the results section. POCT-GLUCOSE METER Routine 03/23/2019 8:22 Resul ts for this AM MANAGER ENGLISH procedure are i n the results section. COMPREHENSIVE Routine 03/23/2019 5:27 Results fo r this METABOLIC PANEL AM MANAGER ENGLISH procedure ar e in the results section. CBC W/PLT COUNT & AUTO Routine 03/23/2019 3:36 R esults for this DIFFERENTIAL AM MANAGER ENGLISH procedure are i n the results section. CBC W/PLT COUNT & AUTO Routine 03/23/2019 3:36 R esults for this DIFFERENTIAL AM MANAGER ENGLISH procedure are i n the results section. POCT-GLUCOSE METER Routine 03/22/2019 9:57 Resul ts for this PM MANAGER ENGLISH procedure are i n the results section. ECHOCARDIOGRAM REPORT 03/22/2019 9:20 - SCAN PM MANAGER ENGLISH CAROTID DOPPLER Routine 03/22/2019 7:42 Results for this BILATERAL PM MANAGER ENGLISH procedure are i n the results section. POCT-GLUCOSE METER Routine 03/22/2019 5:18 Resul ts for this PM MANAGER ENGLISH procedure are i n the results section. CBC (HEMOGRAM ONLY) Routine 03/22/2019 3:55 Resu lts for this PM MANAGER ENGLISH procedure are i n the results section. BASIC METABOLIC PANEL Routine 03/22/2019 3:55 Re sults for this (7) PM MANAGER ENGLISH procedure are i n the results section. POCT-GLUCOSE METER Routine 03/22/2019 3:00 Resul ts for this PM MANAGER ENGLISH procedure are i n the results section. 2D ECHO W/ DOPPLER Routine 03/22/2019 2:04 Resul ts for this (CW/PW/COLOR) PM MANAGER ENGLISH procedure are in the results section. POCT-ACT Routine 03/22/2019 10:59 Results for this AM MANAGER ENGLISH procedure are i n the results section. POCT-ACT Routine 03/22/2019 10:32 Results for this AM MANAGER ENGLISH procedure are i n the results section. L CATH & PCI 03/22/2019 10:18 Coronary artery AM MANAGER ENGLISH disease with angina pectoris, unspecified vessel or lesion type, unspecified whether [place] or transplanted heart (HCC) Case Notes 1430 POCT-GLUCOSE METER Routine 03/22/2019 7:33 AM MANAGER ENGLISH Results for this procedure are i n the results section . CBC W/PLT COUNT & AUTO Routine 03/22/2019 2:06 AM MANAGER ENGLISH Results for this DIFFERENTIAL procedure are i n the results section . LIPID PANEL Routine 03/22/2019 2:06 AM MANAGER ENGLISH Resu lts for this procedure are i n the results section . PHOSPHORUS Routine 03/22/2019 2:06 AM MANAGER ENGLISH Resu lts for this procedure are i n the results section . MAGNESIUM Routine 03/22/2019 2:06 AM MANAGER ENGLISH Resu lts for this procedure are i n the results section . CALCIUM, IONIZED Routine 03/22/2019 2:06 AM MANAGER ENGLISH Results for this procedure are i n the results section . CBC W/PLT COUNT & AUTO Routine 03/22/2019 2:06 AM MANAGER ENGLISH Results for this DIFFERENTIAL procedure are i n the results section . B-TYPE NATRIURETIC FACTOR Routine 03/22/2019 2:06 AM MANAGER ENGLISH Results for this (BNP) procedure are i n the results section . BASIC METABOLIC PANEL (7) Routine 03/22/2019 2:06 AM MANAGER ENGLISH Results for this procedure are i n the results section . APTT Routine 03/22/2019 2:06 AM MANAGER ENGLISH Resu lts for this procedure are i n the results section . US ABDOMEN COMPLETE Routine 03/22/2019 12:10 AM MANAGER ENGLISH Results for this procedure are i n the results section . POCT-GLUCOSE METER Routine 03/21/2019 9:24 PM MANAGER ENGLISH Results for this procedure are i n the results section . APTT Routine 03/21/2019 6:57 PM MANAGER ENGLISH Resu lts for this procedure are i n the results section . POCT-GLUCOSE METER Routine 03/21/2019 5:26 PM MANAGER ENGLISH Results for this procedure are i n the results section . ECG 12-LEAD Routine 03/21/2019 5:24 PM MANAGER ENGLISH Resu lts for this procedure are i n the results section . 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 TROPONIN I Routine 03/21/2019 3:07 PM Results for this MANAGER ENGLISH procedure are i n the results section. XR SHOULDER LEFT RHETT 03/21/2019 2:25 PM Resu lts for this COMPLETE MIN 2 VIEWS MANAGER ENGLISH procedu re are in the results section. POCT-GLUCOSE METER Routine 03/21/2019 12:58 PM Re sults for this MANAGER ENGLISH procedure are i n the results section. REPORT OF PROCEDURE - 03/21/2019 12:27 PM ENDOSCOPY URL MANAGER ENGLISH UPPER ENDOSCOPY 03/21/2019 12:00 PM Atypical chest MANAGER ENGLISH pain APTT Routine 03/21/2019 10:36 AM Results for this MANAGER ENGLISH procedure are i n the results section. POCT-GLUCOSE METER Routine 03/21/2019 7:39 AM Re sults for this MANAGER ENGLISH procedure are i n the results section. APTT Routine 03/21/2019 3:19 AM Results for this MANAGER ENGLISH procedure are i n the results section. BASIC METABOLIC PANEL Routine 03/21/2019 2:23 AM Results for this (7) MANAGER ENGLISH procedure are i n the results section. CBC (HEMOGRAM ONLY) Routine 03/21/2019 2:22 AM R esults for this MANAGER ENGLISH procedure are i n the results section. POCT-GLUCOSE METER Routine 03/20/2019 9:46 PM Re sults for this MANAGER ENGLISH procedure are i n the results section. APTT Routine 03/20/2019 7:09 PM Results for this MANAGER ENGLISH procedure are i n the results section. POCT-GLUCOSE METER Routine 03/20/2019 6:20 PM Re sults for this MANAGER ENGLISH procedure are i n the results section. URINALYSIS W/ Routine 03/20/2019 5:57 PM Results for this MICROSCOPIC MANAGER ENGLISH procedure are i n the results section. CREATININE, RANDOM Routine 03/20/2019 5:57 PM Re sults for this URINE MANAGER ENGLISH procedure are i n the results section. PROTEIN, RANDOM URINE Routine 03/20/2019 5:57 PM Results for this MANAGER ENGLISH procedure are i n the results section. XR CHEST 1 VIEW Routine 03/20/2019 3:12 PM Resul ts for this PORTABLE/BEDSIDE MANAGER ENGLISH procedure a re in the results section. TROPONIN I Routine 03/20/2019 12:19 PM Results for this MANAGER ENGLISH procedure are i n the results section. APTT Routine 03/20/2019 12:19 PM Results for this MANAGER ENGLISH procedure are i n the results section. POCT-GLUCOSE METER Routine 03/20/2019 11:45 AM Re sults for this MANAGER ENGLISH procedure are i n the results section. POCT-GLUCOSE METER Routine 03/20/2019 7:37 AM Re sults for this MANAGER ENGLISH procedure are i n the results section. TROPONIN I Routine 03/20/2019 5:54 AM Results for this MANAGER ENGLISH procedure are i n the results section. CBC W/PLT COUNT & AUTO Routine 03/20/2019 12:43 AM Results for this DIFFERENTIAL MANAGER ENGLISH procedure are i n the results section. APTT Routine 03/20/2019 12:43 AM Results for this MANAGER ENGLISH procedure are i n the results section. TROPONIN I Routine 03/20/2019 12:43 AM Results for this MANAGER ENGLISH procedure are i n the results section. HEMOGLOBIN A1C Routine 03/20/2019 12:43 AM Result s for this MANAGER ENGLISH procedure are i n the results section. MAGNESIUM Routine 03/20/2019 12:43 AM Results for this MANAGER ENGLISH procedure are i n the results section. BASIC METABOLIC PANEL Routine 03/20/2019 12:43 AM Results for this (7) MANAGER ENGLISH procedure are i n the results section. CBC W/PLT COUNT & AUTO Routine 03/20/2019 12:43 AM Results for this DIFFERENTIAL MANAGER ENGLISH procedure are i n the results section. 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 RHYTHM STRIP - SCAN 02/06/2019 11:22 AM MANAGER ENGLISH REPORT OF PROCEDURE - 02/01/2019 9:00 AM MANAGER ENGLISH ENDOSCOPY SCAN RHYTHM STRIP - SCAN 02/01/2019 9:00 AM MANAGER ENGLISH POCT-GLUCOSE METER Routine 01/30/2019 9:05 AM MANAGER ENGLISH Results for this procedure are i n the results section . ECG 12-LEAD Routine 01/30/2019 6:27 AM MANAGER ENGLISH Resu lts for this procedure are i n the results section . CBC W/PLT COUNT & AUTO Routine 01/30/2019 5:56 AM MANAGER ENGLISH Results for this DIFFERENTIAL procedure are i n the results section . URIC ACID Routine 01/30/2019 5:56 AM MANAGER ENGLISH Resu lts for this procedure are i n the results section . PHOSPHORUS Routine 01/30/2019 5:56 AM MANAGER ENGLISH Resu lts for this procedure are i n the results section . MAGNESIUM Routine 01/30/2019 5:56 AM MANAGER ENGLISH Resu lts for this procedure are i n the results section . CBC W/PLT COUNT & AUTO Routine 01/30/2019 5:56 AM MANAGER ENGLISH Results for this DIFFERENTIAL procedure are i n the results section . CALCIUM, IONIZED Routine 01/30/2019 5:56 AM MANAGER ENGLISH Results for this procedure are i n the results section . B-TYPE NATRIURETIC FACTOR Routine 01/30/2019 5:56 AM MANAGER ENGLISH Results for this (BNP) procedure are i n the results section . BASIC METABOLIC PANEL (7) Routine 01/30/2019 5:56 AM MANAGER ENGLISH Results for this procedure are i n the results section . POCT-GLUCOSE METER Routine 01/29/2019 9:09 PM MANAGER ENGLISH Results for this procedure are i n the results section . POCT-GLUCOSE METER Routine 01/29/2019 5:02 PM MANAGER ENGLISH Results for this procedure are i n the results section . PROTEIN, RANDOM URINE Routine 01/29/2019 2:24 PM MANAGER ENGLISH Results for this procedure are i n the results section . URINALYSIS W/ MICROSCOPIC Routine 01/29/2019 2:24 PM MANAGER ENGLISH Results for this procedure are i n the results section . CREATININE, RANDOM URINE Routine 01/29/2019 2:24 PM MANAGER ENGLISH Results for this procedure are i n the results section . SODIUM, RANDOM URINE Routine 01/29/2019 2:24 PM MANAGER ENGLISH Results for this procedure are i n the results section . PHOSPHORUS RHETT 01/29/2019 1:24 PM MANAGER ENGLISH Resu lts for this procedure are i n the results section . MAGNESIUM RHETT 01/29/2019 1:24 PM MANAGER ENGLISH Resu lts for this procedure are i n the results section . BASIC METABOLIC PANEL (7) RHETT 01/29/2019 1:24 PM MANAGER ENGLISH Results for this procedure are i n the results section . XR CHEST 1 VIEW Routine 01/29/2019 1:14 PM MANAGER ENGLISH R esults for this PORTABLE/BEDSIDE procedure a re in the results section . POCT-GLUCOSE METER Routine 01/29/2019 11:38 AM MANAGER ENGLISH Results for this procedure are i n the results section . POCT-GLUCOSE METER Routine 01/29/2019 7:45 AM MANAGER ENGLISH Results for this procedure are i n the results section . ECG 12-LEAD Routine 01/29/2019 6:42 AM MANAGER ENGLISH Procedure Note - Interface, External Ris In - 01/29/2019 6:53 AM MANAGER ENGLISH Ventricular Rate 66 BPM Atrial Rate 66 BPM P-R Interval 190 ms QRS Duration 100 ms Q-T Interval 460 ms QTC Calculation(Bazett) 482 ms P Elmo 60 degrees R Elmo 26 degrees T Elmo 128 degrees Normal sinus rhythm Nonspecific T wave abnormali ty Prolonged QT Abnormal ECG When compared with ECG of 22:51, No significant change was fo und ECG 12-LEAD Routine 01/29/2019 6:42 AM Results for this MANAGER ENGLISH procedure are i n the results section. CBC (HEMOGRAM ONLY) Routine 01/29/2019 5:04 AM R esults for this MANAGER ENGLISH procedure are i n the results section. POCT-GLUCOSE METER Routine 01/28/2019 9:56 PM Re sults for this MANAGER ENGLISH procedure are i n the results section. ECHOCARDIOGRAM REPORT - 01/28/2019 9:21 PM SCAN MANAGER ENGLISH C. DIFFICILE GDH TOXIN Routine 01/28/2019 6:41 PM Results for this MANAGER ENGLISH procedure are i n the results section. OCCULT BLOOD, STOOL Routine 01/28/2019 6:40 PM R esults for this MANAGER ENGLISH procedure are i n the results section. POCT-GLUCOSE METER Routine 01/28/2019 11:46 AM Re sults for this MANAGER ENGLISH procedure are i n the results section. 2D ECHO W/ DOPPLER Routine 01/28/2019 11:25 AM Re sults for this (CW/PW/COLOR) MANAGER ENGLISH procedure are in the results section. APTT Routine 01/28/2019 8:48 AM Results for this MANAGER ENGLISH procedure are i n the results section. POCT-GLUCOSE METER Routine 01/28/2019 8:28 AM Re sults for this MANAGER ENGLISH procedure are i n the results section. APTT Routine 01/28/2019 4:28 AM Results for this MANAGER ENGLISH procedure are i n the results section. BASIC METABOLIC PANEL Routine 01/28/2019 4:28 AM Results for this (7) MANAGER ENGLISH procedure are i n the results section. CBC (HEMOGRAM ONLY) Routine 01/28/2019 4:28 AM R esults for this MANAGER ENGLISH procedure are i n the results section. POCT-GLUCOSE METER Routine 01/27/2019 10:00 PM Re sults for this MANAGER ENGLISH procedure are i n the results section. APTT Routine 01/27/2019 9:12 PM Results for this MANAGER ENGLISH procedure are i n the results section. POCT-GLUCOSE METER Routine 01/27/2019 5:39 PM Re sults for this MANAGER ENGLISH procedure are i n the results section. PT/APTT Routine 01/27/2019 4:27 PM Results for this MANAGER ENGLISH procedure are i n the results section. PT/APTT Routine 01/27/2019 12:58 PM Results for this MANAGER ENGLISH procedure are i n the results section. POCT-GLUCOSE METER Routine 01/27/2019 12:35 PM Re sults for this MANAGER ENGLISH procedure are i n the results section. POCT-GLUCOSE METER Routine 01/27/2019 9:31 AM Re sults for this MANAGER ENGLISH procedure are i n the results section. ECG 12-LEAD Routine 01/27/2019 7:06 AM Results for this MANAGER ENGLISH procedure are i n the results section. APTT Routine 01/27/2019 5:55 AM Results for this MANAGER ENGLISH procedure are i n the results section. POCT-GLUCOSE METER Routine 01/27/2019 3:52 AM Re sults for this MANAGER ENGLISH procedure are i n the results section. BASIC METABOLIC PANEL Routine 01/27/2019 3:47 AM Results for this (7) MANAGER ENGLISH procedure are i n the results section. APTT Routine 01/27/2019 3:47 AM Results for this MANAGER ENGLISH procedure are i n the results section. CBC (HEMOGRAM ONLY) Routine 01/27/2019 3:47 AM R esults for this MANAGER ENGLISH procedure are i n the results section. POCT-GLUCOSE METER Routine 01/26/2019 9:23 PM Re sults for this MANAGER ENGLISH procedure are i n the results section. APTT Routine 01/26/2019 6:42 PM Results for this MANAGER ENGLISH procedure are i n the results section. PLATELET COUNT Routine 01/26/2019 6:42 PM Result s for this MANAGER ENGLISH procedure are i n the results section. POCT-GLUCOSE METER Routine 01/26/2019 1:34 PM Re sults for this MANAGER ENGLISH procedure are i n the results section. POCT-GLUCOSE METER Routine 01/26/2019 8:21 AM Re sults for this MANAGER ENGLISH procedure are i n the results section. ECG 12-LEAD Routine 01/26/2019 8:12 AM Results for this MANAGER ENGLISH procedure are i n the results section. POCT-GLUCOSE METER Routine 01/26/2019 5:42 AM Re sults for this MANAGER ENGLISH procedure are i n the results section. CBC (HEMOGRAM ONLY) Routine 01/26/2019 5:34 AM R esults for this MANAGER ENGLISH procedure are i n the results section. TROPONIN I STAT 01/26/2019 5:34 AM Results for this MANAGER ENGLISH procedure are i n the results section. LIPOPROTEIN (A) Routine 01/26/2019 5:34 AM Resul ts for this MANAGER ENGLISH procedure are i n the results section. XR CHEST 1 VIEW Routine 01/25/2019 11:56 PM Resul ts for this PORTABLE/BEDSIDE MANAGER ENGLISH procedure a re in the results section. CBC W/PLT COUNT & AUTO Routine 01/25/2019 11:19 PM Results for this DIFFERENTIAL MANAGER ENGLISH procedure are i n the results section. APTT Routine 01/25/2019 11:19 PM Results for this MANAGER ENGLISH procedure are i n the results section. APTT Routine 01/25/2019 11:19 PM Results for this MANAGER ENGLISH procedure are i n the results section. PROTHROMBIN TIME/INR Routine 01/25/2019 11:19 PM Results for this MANAGER ENGLISH procedure are i n the results section. CBC W/PLT COUNT & AUTO Routine 01/25/2019 11:19 PM Results for this DIFFERENTIAL MANAGER ENGLISH procedure are i n the results section. B-TYPE NATRIURETIC Routine 01/25/2019 11:19 PM Re sults for this FACTOR (BNP) MANAGER ENGLISH procedure are i n the results section. TROPONIN I STAT 01/25/2019 11:19 PM Results for this MANAGER ENGLISH procedure are i n the results section. COMPREHENSIVE METABOLIC Routine 01/25/2019 11:19 PM Results for this PANEL MANAGER ENGLISH procedure are i n the results section. MAGNESIUM Routine 01/25/2019 11:19 PM Results for this MANAGER ENGLISH procedure are i n the results section. ECG 12-LEAD Routine 01/25/2019 10:51 PM Results for this MANAGER ENGLISH procedure are i n the results section. POCT-GLUCOSE METER Routine 01/25/2019 10:10 PM Re sults for this MANAGER ENGLISH procedure are i n the results section. RHYTHM STRIP - SCAN 01/01/2019 11:34 AM MANAGER ENGLISH REPORT OF PROCEDURE - 12/27/2018 7:06 AM ENDOSCOPY SCAN MANAGER ENGLISH CARDIAC CATH REPORT - 12/27/2018 7:06 AM SCAN MANAGER ENGLISH RHYTHM STRIP - SCAN 12/27/2018 7:06 AM MANAGER ENGLISH POCT-GLUCOSE METER Routine 12/25/2018 11:53 AM Re sults for this MANAGER ENGLISH procedure are i n the results section. POCT-GLUCOSE METER Routine 12/25/2018 6:53 AM Re sults for this MANAGER ENGLISH procedure are i n the results section. CALCIUM, IONIZED Routine 12/25/2018 4:14 AM Resu lts for this MANAGER ENGLISH procedure are i n the results section. CBC W/PLT COUNT & AUTO Routine 12/25/2018 4:13 AM Results for this DIFFERENTIAL MANAGER ENGLISH procedure are i n the results section. PHOSPHORUS Routine 12/25/2018 4:13 AM Results for this MANAGER ENGLISH procedure are i n the results section. MAGNESIUM Routine 12/25/2018 4:13 AM Results for this MANAGER ENGLISH procedure are i n the results section. B-TYPE NATRIURETIC Routine 12/25/2018 4:13 AM Re sults for this FACTOR (BNP) MANAGER ENGLISH procedure are i n the results section. CBC W/PLT COUNT & AUTO Routine 12/25/2018 4:13 AM Results for this DIFFERENTIAL MANAGER ENGLISH procedure are i n the results section. BASIC METABOLIC PANEL Routine 12/25/2018 4:13 AM Results for this (7) MANAGER ENGLISH procedure are i n the results section. POCT-GLUCOSE METER Routine 12/24/2018 10:48 PM Re sults for this MANAGER ENGLISH procedure are i n the results section. POCT-ACT Routine 12/24/2018 10:03 PM Results for this MANAGER ENGLISH procedure are i n the results section. POCT-GLUCOSE METER Routine 12/24/2018 8:12 PM Re sults for this MANAGER ENGLISH procedure are i n the results section. POCT-ACT Routine 12/24/2018 5:18 PM Results for this MANAGER ENGLISH procedure are i n the results section. POCT-ACT Routine 12/24/2018 4:51 PM Results for this MANAGER ENGLISH procedure are i n the results section. L CATH & PCI 12/24/2018 2:49 PM Non-STEMI (non-ST MANAGER ENGLISH elevated myocardial infarction) (HCC) POCT-GLUCOSE METER Routine 12/24/2018 12:46 PM Re sults for this MANAGER ENGLISH procedure are i n the results section. POCT-GLUCOSE METER Routine 12/24/2018 8:25 AM Re sults for this MANAGER ENGLISH procedure are i n the results section. APTT Routine 12/24/2018 8:24 AM Results for this MANAGER ENGLISH procedure are i n the results section. APTT Routine 12/24/2018 1:13 AM Results for this MANAGER ENGLISH procedure are i n the results section. COMPREHENSIVE METABOLIC Routine 12/24/2018 1:13 AM Results for this PANEL MANAGER ENGLISH procedure are i n the results section. ECG 12-LEAD Routine 12/23/2018 10:36 PM Results for this MANAGER ENGLISH procedure are i n the results section. POCT-GLUCOSE METER Routine 12/23/2018 5:53 PM Re sults for this MANAGER ENGLISH procedure are i n the results section. APTT Routine 12/23/2018 4:08 PM Results for this MANAGER ENGLISH procedure are i n the results section. POCT-GLUCOSE METER Routine 12/23/2018 12:58 PM Re sults for this MANAGER ENGLISH procedure are i n the results section. POCT-GLUCOSE METER Routine 12/23/2018 8:40 AM Re sults for this MANAGER ENGLISH procedure are i n the results section. CBC W/PLT COUNT & AUTO Routine 12/23/2018 5:20 AM Results for this DIFFERENTIAL MANAGER ENGLISH procedure are i n the results section. TROPONIN I Routine 12/23/2018 5:20 AM Results for this MANAGER ENGLISH procedure are i n the results section. APTT Routine 12/23/2018 5:20 AM Results for this MANAGER ENGLISH procedure are i n the results section. B-TYPE NATRIURETIC Routine 12/23/2018 5:20 AM Re sults for this FACTOR (BNP) MANAGER ENGLISH procedure are i n the results section. CBC W/PLT COUNT & AUTO Routine 12/23/2018 5:20 AM Results for this DIFFERENTIAL MANAGER ENGLISH procedure are i n the results section. PHOSPHORUS Routine 12/23/2018 5:20 AM Results for this MANAGER ENGLISH procedure are i n the results section. MAGNESIUM Routine 12/23/2018 5:20 AM Results for this MANAGER ENGLISH procedure are i n the results section. COMPREHENSIVE METABOLIC Routine 12/23/2018 5:20 AM Results for this PANEL MANAGER ENGLISH procedure are i n the results section. CALCIUM, IONIZED Routine 12/23/2018 5:20 AM Resu lts for this MANAGER ENGLISH procedure are i n the results section. ECG 12-LEAD Routine 12/23/2018 4:44 AM Results for this MANAGER ENGLISH procedure are i n the results section. [...] 456 ms QTC Calculation(Bazett) 519 ms P Elmo 75 degrees R Elmo 50 degrees T Elmo 44 degrees Normal sinus rhythm Incomplete left [...] 452 ms QTC Calculation(Bazett) 494 ms P Elmo 73 degrees R Elmo 34 degrees T Elmo 92 degrees Normal sinus rhythm Cannot rule [...] 390 ms QTC Calculation(Bazett) 492 ms P Elmo 68 degrees R Elmo 41 degrees T Elmo 107 degrees Normal sinus rhythm Low voltage [...] 382 ms QTC Calculation(Bazett) 495 ms P Elmo 80 degrees R Elmo 60 degrees T Elmo 61 degrees Sinus tachycardia Low voltage QRS [...] 448 ms QTC Calculation(Bazett) 469 ms P Elmo 52 degrees R Elmo 15 degrees T Elmo 79 degrees Normal sinus rhythm Septal infarct , age undeter mined Abnormal ECG No previous ECGs available after 07/29/2018 Results VASCULAR DIAGRAM -SCAN (05/31/2019 12:41 PM [...] (H)Comment: : Notified 70 - 110 mg/dL [facility] RN/MD: TESTED AT [facility] [address] [place] [address], [id number]: Side Seam Envelope Machine Operator/Business Analysis Specialist ID = [id number] for LIZ WATSON Specimen Blood Performing Organization Address City/State/Zipcode Phone Number [facility] [address] [place] [phone] CENTER EKG-SCANNED (05/29/2019 12:10 PM CDT)Only the most recent of6 resultswithin the time period is included. Narrative Performed At This result has an attachment that is no t available. Platelet Aggregation: Drug Effect (05/29/2019 9:27 AM CDT) Arachadonic Acid 13 (L) 63 - 89 % [facility] Interpretation Decreased response to arachi donic acid suggests aspirin-like effect. [facility]ClockW[facility] Decreased aggregation with A DP which indicates platelet dysfunction that may be due to medication effect, uremia, or other platelet function disorders.Clinical correlation is required. [facility] Pathologist: Talia Villarreal MD [facility] (electronic signature) [facility] Platelets 184 150 - 450 K/CU MM [facility] ER ADP 11 (L) 62 - 100 % [facility] ER Platelet Rich Plasma 243 200 - 300 k/cu mm [facility] Specimen Blood Narrative Performed At Platelet function studies by aggregation [facility] methodology on samples with platelet count <75,000/CU MM are unreliable; platelet function assessment should not be based on a single test. Side Seam Envelope Machine Operator ID - [id number] Performing Organization Address [facility]/Zipcode Phone Number [address] [address] [place] Calcium, Ionized (05/29/2019 4:41 AM CDT)Only the most recent of16 results within the time period is included. Calcium, Ion 1.16 1.12 - 1.27 mmol/L [facility] pH, Blood 7.40 [facility] Specimen Blood Performing Organization Address [facility] Hospitalcode Phone Number [address] [address] [place] CBC with platelet count + automated diff (05/29/2019 4:41 AM CDT)Only the most recent of32 resultswithin the time period is included. WBC 6.4 3.5 - 10.5 K/L [facility] RBC 3.26 (L) 3.93 - 5.22 M/L [facility] Hemoglobin 10.1 (L) 11.2 - 15.7 GM/DL [facility] Hematocrit 30.3 (L) 34.1 - 44.9 % [facility] MCV 92.9 79.4 - 94.8 fL [facility] MCH 31.0 25.6 - 32.2 pg [facility] MCHC 33.3 32.2 - 35.5 GM/DL [facility] RDW 13.1 11.7 - 14.4 % [facility] Platelets 183 150 - 450 K/CU MM [facility] MPV 9.9 9.4 - 12.3 fL [facility] nRBC 0 0 - 0 /100 WBC [facility] % Neutros 70 % [facility] % Lymphs 19 % [facility] % Monos 9 % [facility] % Eos 1 % [facility] % Baso 1 % [facility] # Neutros 4.47 1.56 - 6.13 K/L [facility] # Lymphs 1.20 1.18 - 3.74 K/L [facility] # Monos 0.59 (H) 0.24 - 0.36 K/L [facility] # Eos 0.08 0.04 - 0.36 K/L [facility] # Baso 0.04 0.01 - 0.08 K/L [facility] Immature Granulocytes-Relative 0 0 - 1 % C [facility] Specimen Blood Performing Organization Address City/State/Zipcode Phone Number [facility] [address] [place] [address] CENTER CBC (hemogram only) (05/29/2019 4:41 AM CDT)Only the most recent of11 results within the time period is included. WBC 6.4 3.5 - 10.5 K/L [facility] RBC 3.26 (L) 3.93 - 5.22 M/L [facility] Hemoglobin 10.1 (L) 11.2 - 15.7 GM/DL [facility] Hematocrit 30.3 (L) 34.1 - 44.9 % [facility] MCV 92.9 79.4 - 94.8 fL [facility] MCH 31.0 25.6 - 32.2 pg [facility] MCHC 33.3 32.2 - 35.5 GM/DL [facility] RDW 13.1 11.7 - 14.4 % [facility] Platelets 183 150 - 450 K/CU MM [facility] MPV 9.9 9.4 - 12.3 fL [facility] nRBC 0 0 - 0 /100 WBC [facility] Specimen Blood Performing Organization Address City/[facility]/Zipcode Phone Number [address] [address] CENTER Uric acid (05/29/2019 4:41 AM CDT)Only the most recent of3 resultswithin the time period is included. Uric Acid 9.0 (H) 2.6 - 7.2 mg/dL [facility] Specimen Blood Narrative Performed At Side Seam Envelope Machine Operator ID - MELI M [facility] Performing Organization Address City/[facility] Hospitalcori Phone Number [address] [address] CENTER Phosphorus (05/29/2019 4:41 AM CDT)Only the most recent of16 resultswithin the time period is included. Phosphorus 3.7 2.3 - 4.7 mg/dL [facility] Specimen Blood Narrative Performed At Side Seam Envelope Machine Operator ID - MELI M [facility] Performing Organization Address City/[facility]/Zipcode Phone Number [address] [address] CENTER B-type Natriuretic Factor (BNP) (05/29/2019 4:41 AM CDT)Only the most recent of 13 resultswithin the time period is included. BNP 1,228 (H) 0 - 100 pg/mL [facility] Specimen Blood Narrative Performed At Side Seam Envelope Machine Operator STEPHANE Ott [facility] Performing Organization Address City/[facility]/Zipcode Phone Number [facility] [address] [place] [address] CENTER Magnesium (05/29/2019 4:41 AM CDT)Only the most recent of29 resultswithin the time period is included. Magnesium 2.1 1.6 - 2.6 mg/dL [facility] Specimen Blood Narrative Performed At Side Seam Envelope Machine Operator ID - MELI Ott [facility] Performing Organization Address City/[facility]/Zipcode Phone Number [facility] [address] [place] [address] CENTER Creatine Kinase (CK) (05/29/2019 4:41 AM CDT)Only the most recent of2 results within the time period is included. Total CK 94 29 - 200 U/L [facility] Specimen Blood Narrative Performed At Side Seam Envelope Machine Operator STEPHANE - MELI Ott [facility] Performing Organization Address City/[facility]/Zipcode Phone Number [facility] [address] [place] [address] CENTER Basic metabolic panel (05/29/2019 4:41 AM CDT)Only the most recent of32 results within the time period is included. Sodium 135 (L) 136 - 145 meq/L [facility] Potassium 3.8 3.5 - 5.1 meq/L [facility] Chloride 98 98 - 107 meq/L [facility] CO2 27 22 - 29 meq/L [facility] BUN 73 (H) 7 - 21 mg/dL [facility] Creatinine 3.31 (H) 0.57 - 1.25 mg/dL [facility] Glucose 269 (H) 70 - 105 mg/dL [facility] Calcium 9.1 8.4 - 10.2 mg/dL [facility] EGFR 13Comment: ESTIMATED GFR IS mL/min/1.[address] [facility] NOT ACCURATE CREATININE [facility] CLEARANCE IN PREDICTING GLOMERULAR FILTRATION RATE. ESTIMATED GFR IS NOT APPLICABLE FOR DIALYSIS PATIENTS. Specimen Blood Narrative Performed At Side Seam Envelope Machine Operator ID - MELI M [facility] Performing Organization Address City/State/Zipcode Phone Number [facility] [address] [place] [address] CENTER US renal complete (05/29/2019 [...] Date/Time: 05/29/2019 0 3:58:20 Performing Organization Address City/[facility] Hospitalcori Phone Number GE RIS POC ACTIVATED CLOTTING TIME (05/28/2019 8:28 PM CDT)Only the most recent of23 resultswithin the time period is included. Activated Clotting Time 136Comment: : 74-[address] [facility] seconds, Baseline: TESTED [facility] AT [address], [address]: Side Seam Envelope Machine Operator/Business Analysis Specialist ID = [id number] for TAVIADARIAN Specimen Blood Performing Organization Address [facility] [place] [address] CENTER Urinalysis w/Microscopic (05/28/2019 6:20 PM CDT)Only the most recent of5 resultswithin the time period is included. Color, UA Light Yellow [facility] Clarity, UA Clear [facility] Specific Hugo, UA 1.012 1.001 - 1.035 [facility] pH, UA 6.0 5.0 - 8.0 [facility] Protein, UA 20 mg/dL (A) Negative [facility] Glucose, UA 150 mg/dL (A) Negative [facility] Ketones, UA Negative Negative [facility] Bilirubin, UA Negative Negative [facility] Blood, UA Trace (A) Negative [facility] Nitrite, UA Negative Negative [facility] Leukocytes, UA Negative Negative [facility] Urobilinogen, UA 0.2 0.2 - 1.0 mg/dL [facility] RBC, UA 1 /HPF [facility] WBC, UA <1 /HPF [facility] Bacteria, UA Many [facility] Specimen Source [facility] Specimen Urine Narrative Performed At Side Seam Envelope Machine Operator ID - [[id number]] [facility] Side Seam Envelope Machine Operator ID - [id number] Performing Organization Address City/State/Zipcode Phone Number [facility] [address] [place] [address] CENTER Venous doppler legs bilateral (05/28/2019 5:05 PM CDT) Ejection Fraction [facility] ECHO HEAR TLAB MKCKESSON CPACS Specimen Impressions Performed At Right Impression [facility] ECHO HEARTLAB MKCKESSON CPACS 1. There is [...] At LAB - Lower Extremities DVT Study [facility] ECHO HEARTLAB MKCKESSON [facility] Demographics Patient Name SUZAN ARECHIGA Date of Study05/28/2019 CAPRICE CINDY [id number] Visit Number [id number] Gender Female Accession Number [id number] Date of Birth1940 [facility] Number [id number] Physician SonographerSly Shelby RVTInterpreting [...] 05/28/2019 DARCIOBDEO A ge 78 Visit Number [id number] G tomas Female Accession Number [id number] D ate of 1940 Referring Peyton Spencer thompson Number [id number] Physician Safe Expert Sly Shelby T I nterpreting Suhail Stroud [...] are measured in cm Performing Organization Address [facility] Phone Number [facility] ECHO HEARTLAB MKCKESSON CPACS Sodium, random urine (05/28/2019 12:35 PM CDT)Only the most recent of3 results within the time period is included. Sodium Urine 35 meq/L [facility] Specimen Urine Narrative Performed At Reference Range: No Normals [facility] Side Seam Envelope Machine Operator ID - [id number] Performing Organization Address [facility]/[place] Phone Number [address] [phone] CENTER Protein, random urine (05/28/2019 12:35 PM CDT)Only the most recent of4 results within the time period is included. Protein, Urine 10 0 - 14 mg/dL [facility] Specimen Urine Narrative Performed At Side Seam Envelope Machine Operator ID - BS [facility] Performing Organization Address [facility] HospitaliCreate Phone Number [address] [place] [address] CENTER Creatinine, random urine (05/28/2019 12:35 PM CDT)Only the most recent of4 resultswithin the time period is included. Creatinine, Ur 65.1 mg/dL [facility] Specimen Urine Narrative Performed At Reference Range: No Normals [facility] Side Seam Envelope Machine Operator ID - BS Performing Organization Address [facility] Hospitalcode Phone Number [address] [address] CENTER aPTT (05/28/2019 8:11 AM CDT)Only the most recent of39 resultswithin the time period is included. PTT 67.2 (H) 22.5 - 36.0 seconds [facility] Specimen Blood Performing Organization Address [facility] Phone Number [address] [address] CENTER Troponin I (05/28/2019 4:20 AM CDT)Only the most recent of20 resultswithin the time period is included. Troponin I 1.06 (HH) 0.00 - 0.03 ng/mL [facility] Specimen Blood Narrative Performed At Troponin I (TnI) levels must be interpreted [facility] in the context of the presenting symptoms and the clinical findings. Elevated TnI levels indicate myocardial damage, but are not specific for ischemic heart disease. Elevated TnI levels are seen in patients with other cardiac conditions (including myocarditis and congestive heart failure), and slight TnI elevations occur in patients with other conditions, including sepsis, renal failure, acidosis, acute neurological disease, and persistent tachyarrhythmia. Side Seam Envelope Machine Operator ID - BS Performing Organization Address [facility] Hospitalcode Phone Number [address] [address] CENTER PT/aPTT (05/27/2019 11:41 PM CDT)Only the most recent of7 resultswithin the time period is included. Protime 13.3 11.9 - 14.2 seconds [facility] INR 1.0 <=5.9 [facility] PTT 25.2 22.5 - 36.0 seconds [facility] Specimen Blood Narrative Performed At Effective 07/18/2018: PT Reference Range [facility] Change New: 11.9-14.2Previous: 11.7-14.7 RECOMMENDED COUMADIN/WARFARIN INR THERAPY RANGES STANDARD DOSE: 2.0-3.0Includes: PROPHYLAXIS for venous thrombosis, systemic embolization; TREATMENT for venous thrombosis and/or pulmonary embolus. HIGH RISK: Target INR is 2.5-3.5 for patients wiht mechanical heart valves. Performing Organization Address City/State/Zipcode Phone Number [address] [phone] CENTER Platelet count (05/27/2019 11:22 PM CDT)Only the most recent of2 resultswithin the time period is included. Platelets 209 150 - 450 K/CU MM [facility] Specimen Blood Narrative Performed At Side Seam Envelope Machine Operator ID - [id number] [facility] Performing Organization Address City/State/Zipcode Phone Number [address] [phone] CENTER ECG 12 lead (05/27/2019 11:14 PM CDT)Only the most recent of18 resultswithin the time period is included. Specimen Narrative Performed At Ventricular Rate 91 BPM GE MUSE Atrial Rate 91 BPM P-R Interval 184 ms QRS Duration 112 ms Q-T Interval 410 ms QTC Calculation(Bazett) 504 ms P Elmo 80 degrees R Elmo 53 degrees T Elmo 215 degrees Normal sinus rhythm Incomplete left [...] 410 ms QTC Calculation(Bazett) 504 ms P Elmo 80 degrees R Elmo 53 degrees T Elmo 215 degrees Normal sinus rhythm Incomplete left bundle branch block ST depression inferior and anterolateral leads + ST elevation in aVR consider ischemia Prolonged QT Abnormal ECG When compared with ECG of 22:06 ST now depressed in Lateral leads ST now elevated in aVR Confirmed by MD JORGE, MATHEUS ([id number]) on 05/28/2019 6:33:47 AM Performing Organization Address [facility] Phone Number [employer] MUSE XR chest 1 view portable / bedside (05/27/2019 11:05 AM CDT)Only the most recent of24 resultswithin the time period is included. Specimen Narrative Performed At FINAL REPORT [employer] SA RAD, CHEST, 1 VIEW, NON DEPT INDICATION: [...] present. Signed: Ochoa Fry MD Report Verified Date/Time:05/27/2019 23:36:18 Procedure [...] Date/Time: 05/27/2019 2 3:36:18 Performing Organization Address [facility] Hospitalcode Phone Number GE [facility] CARDIAC CATH REPORT - SCAN (03/26/2019 8:41 AM MANAGER ENGLISH) Narrative Performed At This result has an attachment that is no t available. CARDIAC CATH REPORT - SCAN (03/26/2019 8:41 AM MANAGER ENGLISH) Narrative Performed At This result has an attachment that is no t available. Comprehensive metabolic panel (03/23/2019 5:27 AM MANAGER ENGLISH)Only the most recent of16 resultswithin the time period is included. Protein, Total 6.3Comment: Specimen 6.0 - 8.3 gm/dL [facility] slightly hemolyzed [facility] Albumin 3.4 (L)Comment: Specimen 3.5 - 5.0 g/dL [facility] slightly hemolyzed [facility] Alkaline Phosphatase 52 40 - 150 U/L [facility] Total Bilirubin 0.4Comment: Specimen 0.2 - 1.2 mg/dL [facility] slightly hemolyzed [facility] Sodium 140 136 - 145 meq/L [facility] Potassium 4.1Comment: Specimen 3.5 - 5.1 meq/L [facility] slightly hemolyzed [facility] Chloride 102 98 - 107 meq/L [facility] CO2 25 22 - 29 meq/L [facility] BUN 49 (H) 7 - 21 mg/dL [facility] Creatinine 2.86 (H)Comment: 0.57 - 1.25 mg/dL [facility] Specimen slightly [facility] hemolyzed Glucose 164 (H) 70 - 105 mg/dL [facility] Calcium 9.0 8.4 - 10.2 mg/dL [facility] AST 27Comment: Specimen 5 - 34 U/L [facility] slightly hemolyzed [facility] ALT 14Comment: Specimen 6 - 55 U/L [facility] slightly hemolyzed [facility] EGFR 16Comment: ESTIMATED GFR mL/min/1.73 sq m [facility] IS NOT ACCURATE [facility] CREATININE CLEARANCE IN PREDICTING GLOMERULAR FILTRATION RATE. ESTIMATED GFR IS NOT APPLICABLE FOR DIALYSIS PATIENTS. Specimen Blood Narrative Performed At Side Seam Envelope Machine Operator ID - PIAYA L [facility] CENTER Performing Organization Address City/State/Zipcode Phone Number [facility] MEDICAL [address] [place] [address] CENTER ECHOCARDIOGRAM REPORT - SCAN (03/22/2019 9:20 PM MANAGER ENGLISH) Narrative Performed At This result has an attachment that is no t available. Carotid doppler bilateral (03/22/2019 7:42 PM MANAGER ENGLISH)Only the most recent of2 resultswithin the time period is included. [facility] ECHO HEAR TLAB MKCKESSON CPACS Specimen Impressions Performed At Right Impression [facility] ECHO HEARTLAB MKCKESSON CPACS 1. There is [...] Performed At LAB - Carotid Duplex Study [facility] ECHO HEARTLAB [facility] Demographics Patient Name SUZAN ARECHIGA Date of Study03/22/2019 CAPRICE BDEO [id number] Visit Number [id number] Gender Female Accession Number [id number] Date of Birth1940 [facility] Room Number C633 Physician SonographApolinar De RVTInterpreting [...] External Ris In - 03/23/2019 9:28 AM MANAGER ENGLISH PV LAB - Carotid Duplex Study Demographics Patient Name SUZAN ARECHIGA ate of Study 03/22/2019 ESCOBDEO A ge 78 Visit Number [id number] G tomas Female Accession Number [id number] D ate of 1940 Referring Sharon thompson Number [id number] Physician Safe Expert Isabela De T I nterpreting Suhail Stroud [...] 1.48. Performing Organization Address City/State/Zipcode Phone Number [facility] trueEX [facility] 2D Echo W/Doppler(CW/PW/Color) (03/22/2019 2:04 PM MANAGER ENGLISH) Ejection Fraction [facility] ECHO HEAR TLAB Double R Group [facility] Specimen Narrative Performed At Transthoracic Echocardiography Report (T TE) [facility] MIG China HEARTLeeo Double R Group [facility] Demographics Patient Name SUZAN ARECHIGA Date of Study 03/22/2019 ESCOBDEO [id number] GenderFemale Visit Number [id number] [facility] [id number] Room Number C63 3 Number Date of Birth1940 Referring Physician Peyton Reece Age78 year(s) Safe Expert Daniel Acosta MD Physician Procedure Type of [...] External Ris In - 03/22/2019 5:25 PM MANAGER ENGLISH Transthoracic Echocardiography Report (TTE) Demographics Patient Name SUZAN ARECHIGA ate of Study 03/22/2019 DUKEDEO G tomas Female Visit Number [id number] R matthias R oom Number [id number] Number [...] T CI: 4.1 l/min/m^2 Performing Organization Address [facility] Phone Number [facility] ECHO HEARTLAB MKCKESSON CPACS Lipid panel (03/22/2019 2:06 AM MANAGER ENGLISH)Only the most recent of2 resultswithin the time period is included. Triglycerides 102 mg/dL [facility] Cholesterol 161 mg/dL [facility] HDL 40 mg/dL [facility] LDL Calculated 101 mg/dL [facility] Specimen Blood Narrative Performed At Triglyceride Reference Range: [facility] Low Risk <150 [id number] High Risk 200-499 Very High Risk>=500 Cholesterol Reference Range: Low Risk <200 Mpprzxaapq826-664 High Risk>240 HDL Cholesterol Reference Range: Low Risk >=60 High Risk <40 LDL Cholesterol Reference Range: Optimal<100 Near Quvxwva152-724 Bmerjmaagk035-411 Dvhm061-445 Very High >=190 Side Seam Envelope Machine Operator ID - [id number] Performing Organization Address City/[facility] Phone Number [facility] [address] [place] [address] CENTER US abdomen complete (03/22/2019 12:10 AM MANAGER ENGLISH) Specimen Narrative Performed At FINAL REPORT [facility] INDICATION: abd pain COMPARISON: Renal ultrasound dated [...] External Ris In - 03/22/2019 1:53 AM MANAGER ENGLISH FINAL REPORT INDICATION: abd pain COMPARISON: Renal [...] 1:50:03 Performing Organization Address City/State/Zipcode Phone Number [facility] CT brain without IV contrast (03/21/2019 4:58 PM MANAGER ENGLISH) Specimen Narrative Performed At FINAL REPORT [facility] SA CT, BRAIN, WITHOUT CONTRAST INDICATION: Left sided [...] cranial-cervical 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 No intracranial hemorrhage or abnormal [...] External Ris In - 03/21/2019 5:38 PM MANAGER ENGLISH FINAL REPORT CT, BRAIN, WITHOUT CONTRAST INDICATION: [...] cranial-cervical 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 No intracranial hemorrhage or abnormal [...] 2 views min left (03/21/2019 2:25 PM MANAGER ENGLISH) Specimen Narrative Performed At FINAL REPORT GE [...] MD Report Verified Date/Time:03/21/2019 14:38:21 Reading Location: [facility] [facility] [email or web address] [facility] Reading Room Procedure Note Interface, External Ris In - 03/21/2019 2:40 PM MANAGER ENGLISH FINAL REPORT RAD, SHOULDER, COMPLETE (MIN 2 [...] Verified Date/Time: 03/21/2019 1 4:38:21 Reading Location: [employer] [facility] Reading Room Performing Organization Address City/State/Zipcode Phone Number [facility] REPORT OF PROCEDURE - ENDOSCOPY URL (03/21/2019 12:27 PM MANAGER ENGLISH) Narrative Performed At This result has an attachment that is no t available. Hemoglobin A1c (03/20/2019 12:43 AM MANAGER ENGLISH)Only the most recent of3 resultswithin the time period is included. Hemoglobin A1C 8.5 (H) 4.3 - 6.1 % [facility] Specimen Blood Performing Organization Address City/State/Zipcode Phone Number [address] [phone] [place] ECHOCARDIOGRAM REPORT - SCAN (01/28/2019 9:21 PM MANAGER ENGLISH) Narrative Performed At This result has an attachment that is no t available. Clostridium difficile [facility] Toxin (01/28/2019 6:41 PM MANAGER ENGLISH)Only the most recent of 3 resultswithin the time period is included. C. Difficle Toxin Negative Negative [facility] C. Difficile [facility] Antigen Positive (A)Comment: C. Negative [facility] difficile present but toxin [facility] not detected. Indicates colonization with non-toxigenic strain or level of toxin below detectable levels. No need for enteric isolation. Treatment is rarely needed (only when strong clinical suspicion for Clostridium difficile infection) Specimen Stool Narrative Performed At Testing performed by [employer] Rapid Cass[employer] [facility] Assay.For [facility], published sensitivity of the assay is 98.7% compared to cytotoxicity testing.For Toxin AB, published sensitivity is 87.8% and specificity 99.4% compared to cytotoxicity testing. Verification of kit performance was done by the [facility] Microbiology Lab prior to clinical use. Performing Organization Address City/State/Zipcode Phone Number [address] [address] [place] Occult blood, stool (01/28/2019 6:40 PM MANAGER ENGLISH)Only the most recent of2 results within the time period is included. Occult blood Negative Negative [facility] Specimen Stool Performing Organization Address City/State/Zipcode Phone Number [address] [address] [place] Transthoracic 2D echo w/ doppler (cw/pw/color) (01/28/2019 11:25 AM MANAGER ENGLISH) Ejection Fraction [facility] ECHO HEAR TLAB [facility] Specimen Narrative Performed At Transthoracic Echocardiography Report (T TE) [facility] ECHO HEARTLAB CKESSON [facility] Demographics Patient NameCARRILLOSUZAN Date of Study01/28/2019 ESCOBDEO Gender Female Visit [id number] Race Hispani c [id number] Number Date of 1940 Referring Physician Age [...] External Ris In - 01/28/2019 3:33 PM MANAGER ENGLISH Transthoracic Echocardiography Report (TTE) Demographics Patient Name SUZAN ARECHIGA Date of Study 01/28/2019 SARAI Gend er Female Visit Number [id number] Race Room Number 8A11 Number Date of [...] T CI: 2.52 l/min/m^2 Performing Organization Address City/[facility] Phone Number [facility] ECHO HEARTLAB MKCKESSON CPACS Lipoprotein (a) (01/26/2019 5:34 AM MANAGER ENGLISH) Lipoprotein (a) 57 <75 nmol/L [facility] Specimen Blood Narrative Performed At Performing Lab [email or web address] [facility] [employer] [facility] [place] [address] [place] [address] I Bright BUENO, PhD, ROBY Performing Organization Address [facility] Phone Number [facility] [place] [address] [facility] [address] [facility] Prothrombin time/INR (01/25/2019 11:19 PM MANAGER ENGLISH)Only the most recent of3 results within the time period is included. Protime 13.2 11.9 - 14.2 seconds [facility] INR 1.1 <=5.9 [facility] Specimen Blood Narrative Performed At Effective 07/18/2018: PT Reference Range [facility] Change New: 11.9-14.2Previous: 11.7-14.7 RECOMMENDED COUMADIN/WARFARIN INR THERAPY RANGES STANDARD DOSE: 2.0-3.0Includes: PROPHYLAXIS for venous thrombosis, systemic embolization; TREATMENT for venous thrombosis and/or pulmonary embolus. HIGH RISK: Target INR is 2.5-3.5 for patients wiht mechanical heart valves. Prior to initiating heparin Performing Organization Address City/[facility]/Zipcode Phone Number [place] [phone] [place] [address] [place] CARDIAC CATH REPORT - SCAN (12/27/2018 7:06 AM MANAGER ENGLISH) Narrative Performed At This result has an attachment that is no t available. Iron, TIBC, % sat. (without ferritin) (12/22/2018 4:53 AM CDT)Only the most recent of2 resultswithin the time period is included. Iron 85.0 40.0 - 160.0 ug/dL [facility] TIBC 226 (L) 250 - 450 ug/dL [facility] Iron % Saturation 38 20 - 55 % [facility] Specimen Blood Performing Organization Address [facility] [place] [address] [place] Ferritin (12/22/2018 4:53 AM CDT)Only the most recent of2 resultswithin the time period is included. Ferritin 195 5 - 275 ng/mL [facility] Specimen Blood Performing Organization Address [facility] [place] [address] [place] Reticulocyte count (12/22/2018 4:52 AM CDT)Only the most recent of2 results within the time period is included. % Retic 2.0 (H) 0.5 - 1.7 % [facility] Specimen Blood Performing Organization Address [facility] [address] [place] ECHOCARDIOGRAM REPORT - SCAN (12/21/2018 9:21 PM CDT) Narrative Performed At This result has an attachment that is no t available. 2D Echo W/Doppler(CW/PW/Color) (12/21/2018 10:22 AM CDT) Ejection Fraction [facility] ECHO HEAR TLAB [facility] Specimen Narrative Performed At Transthoracic Echocardiography Report (T TE) [facility]CHO [facility]ARTLAB [facility] Demographics Patient Name SUZAN ARECHIGA Date of Study12/21/2018 ESCOBDEO [id number] Gender Female Visit Number [id number] Race [id number] [id number] Number Date 1940 [facility] Physician Age78 year(s) SonographColin Snider, RDCS,RVT,RDMS AnalystAlex [...] Study 12/21/2018 SARAI Gender Female Visit Number [id number] Race Room [facility] 6105 Number Date of 1940 Referri ivette Palmer S Physici an Age 78 year(s) Sonogra pher Destini Silva NB, RDCS,RVT,RDMS Sludge Control Attendant Nader Finley Interpr eting Kash Carr MD [...] City/State/Zipcode Phone Number [facility] LIZETTE OBRIEN MKCKALESSANDRO [facility] CRITICAL CARE (12/20/2018 8:19 PM [...] CDT) Specimen Narrative Performed At FINAL REPORT [facility] SA PROCEDURE: MYOCARDIAL PERFUSION PET IMAG ING (Rest/Stress) CPT CODE: 41122 INDICATION: Evaluate extent of known CAD , [...] Chest discomfort, nausea, fati crystal (Treatment was [id number] IV). Perfusion: There is an absence of [...] MD Report Verified Date/Time:11/12/2018 15:26:40 Reading Location: [address] P[address] Nuc Med Reading Room Procedure Note Interface, External Ris In - 11/12/2018 3:28 PM CDT FINAL REPORT PROCEDURE: MYOCARDIAL PERFUSION PET IMAG ING (Rest/Stress) CPT CODE: 76413 INDICATION: Evaluate extent of known CAD , [...] Chest discomfort, nausea, fati crystal (Treatment was [id number] IV). Perfusion: There is an absence of [...] Verified Date/Time: 11/12/2018 1 5:26:40 Reading Location: [place] [id number] Reading Room Performing Organization Address [...] 1:04:52 PM Confirmed by MD LOZANO JORGE ([id number]) on 11/23/2018 3:0 5:01 PM Procedure Note [...] PM Performing Organization Address City/State/Zipcode Phone Number [employer] ECHOCARDIOGRAM REPORT - SCAN (11/11/2018 9:20 PM CDT) Narrative Performed At This result has an attachment that is no t available. Transthoracic 2D echo w/ doppler (cw/pw/color) (11/11/2018 1:14 PM CDT) Ejection Fraction [facility] ECHO HEAR TLAB MKCKESSON [facility] Specimen Narrative Performed At Transthoracic Echocardiography Report (T TE) [facility] ECHO HEARTLAB MKCKESSON CPA Demographics Patient NameCARRISUZAN MOSES Date of Study11/11/2018 ESCOBDEO Gender Female Visit [id number] Race Hispani c [id number] Number Date of 1940 Referringmadeline Reece Physician Age 78 year(s) SonographerSly Sims [facility] Sludge Control Attendant Amber Kaplan CS Interpreting Physician XIMENA Smith [...] 11/11/2018 ESCOBDEO Gend er Female Visit Number [id number] Race Room Number 6102 Number Date of 1940 Refe rring Peyton Palmer S Phys ician Age 78 year(s) Sono roxann Sims RDCS Sludge Control Attendant Amber Kaplan RDCS Inte rpreting Tramaine Cormier [...] T CI: 2.37 l/min/m^2 Performing Organization Address [facility] Phone Number [facility] ECHO HEARTLAB MKCKESSON CPACS TSH/T4 if indicated (11/11/2018 12:39 AM CDT)Only the most recent of2 results within the time period is included. TSH 1.17 0.35 - 4.94 uIU/mL [facility] Specimen Blood Performing Organization Address [facility] [place] [address] CENTER Hepatic function panel (11/11/2018 12:39 AM CDT)Only the most recent of3 results within the time period is included. Protein, Total 7.3Comment: Specimen 6.0 - 8.3 gm/dL [facility] slightly hemolyzed [facility] Albumin 3.9Comment: Specimen 3.5 - 5.0 g/dL [facility] slightly hemolyzed [facility] Total Bilirubin 0.5Comment: Specimen 0.2 - 1.2 mg/dL [facility] slightly hemolyzed [facility] Bilirubin, Direct 0.2Comment: Specimen 0.1 - 0.5 mg/dL [facility] slightly hemolyzed [facility] Alkaline Phosphatase 129 40 - 150 U/L [facility] AST 18Comment: Specimen 5 - 34 U/L [facility] slightly hemolyzed [facility] ALT 11Comment: Specimen 6 - 55 U/L [facility] slightly hemolyzed [facility] Specimen Blood Performing Organization Address [facility] Phone Number [facility] [address] [place] [address] CENTER CARDIAC CATH REPORT - SCAN (08/21/2018 11:00 AM CDT) Narrative Performed At This result has an attachment that is no t available. CARDIAC CATH REPORT - SCAN (08/21/2018 11:00 AM CDT) Narrative Performed At This result has an attachment that is no t available. CT pelvis without IV contrast (08/16/2018 2:38 AM CDT) Specimen Narrative Performed At FINAL REPORT [facility] CT pelvis without contrast HISTORY: [...] MD Report Verified Date/Time:08/16/2018 08:42:53 Reading Location: [facility] Radiology Reading Room Procedure Note Interface, [...] Verified Date/Time: 08/16/2018 0 8:42:53 Reading Location: [facility] Radiology Reading Room Performing Organization Address City/State/Zipcode Phone Number [facility] ECHOCARDIOGRAM REPORT - SCAN (08/15/2018 9:12 PM CDT) Narrative Performed At This result has an attachment that is no t available. Limited 2D Echocardiogram (08/15/2018 3:53 PM CDT) Ejection Fraction [facility] ECHO HEAR TLAB [facility] Specimen Narrative Performed At Transthoracic Echocardiography Report (T TE) [facility] ECHO HEARTLAB SnapMyAdESSON [facility] Demographics Patient NameCARRISUZAN MOSES Date of Study08/15/2018 ESCOBDEO Gender Female Visit [id number] Race Hispani c [id number] Number Date of 1940 [facility] Age 78 year(s) SonographerPretty reece [facility] Sludge Control Attendant Amber Kaplan [facility] Interpreting Nat [...] inferolateral. Beauchamp's method of disk assessment is qnvbdjzkew-fj-kelnpn reduced (30%) . 2. The right ventricular [...] moderately enlarged (female - LVED vol -71-80ml/m2). Wgzeuneh-fy-bepnlb concentric LV hypertr ophy. Global LV systolic function icvkcupu-cw-ouirktzk reduced . LVEF by Beauchamp's method of disk assessment is lqequjmfcg-hm-yutyku reduced (30%) . The following segment(s) appear [...] Name SUZAN ARECHIGA Date of Study 08/15/2018 DUKEDEO Gend er Female Visit Number [id number] Race Room Number 1114 Number Date of 1940 Refe dali bradley Age 78 year(s) Sono grapher Pretty Long RDCS Sludge Control Attendant Amber Kaplan RDCS Inte [facility] Nat Pettit MD Procedure Type of Study [...] inferolateral. Beauchamp's method of disk assessment is cdftjspvdu-vd-xwevmx reduced (30%) . 2. The right ventricular [...] LV hypertrophy. Global LV systolic functio n qurtnpga-di-zcbadnui reduced . LVEF by Beauchamp's method o f disk assessment is jekanqkgax-we-cxjjrl reduc ed (30%) . The following segment(s) [...] Diastolic: 1.63 cm LVEDV Beauchamp's:137.8 ml LVESV Beauchapm's:96.45 ml LVEF Beauchamp's: 30 % LVEDVI: 77 ml/m^2 LVESVI: 54 ml/m^2 Performing Organization Address City/State/Zipcode Phone Number [facility] ECHO HEARTLAB MKCKESSON CPACS Urinalysis w/Microscopic + Reflex to Culture (08/14/2018 10:53 AM CDT)Only the most recent of2 resultswithin the time period is included. Color, UA Light Yellow [facility] Clarity, UA Hazy [facility] Specific Hugo, UA 1.009 1.001 - 1.035 [facility] pH, UA 6.0 5.0 - 8.[address] [facility] Protein, UA 30 mg/dL (A) Negative [facility] Glucose, UA Negative Negative [facility] Ketones, UA Negative Negative [facility] Bilirubin, UA Negative Negative [facility] Blood, UA Small (A) Negative [facility] Nitrite, UA Negative Negative [facility] Leukocytes, UA Large (A) Negative [facility] Urobilinogen, UA 0.2 0.2 - 1.0 mg/dL [facility] RBC, UA 0 /HPF [facility] WBC, UA >182 /HPF [facility] Bacteria, UA Many [facility] Squam Epithel, UA <1 /HPF [facility] Renal Epithelial 15 /HPF [facility] WBC Casts 14 /LPF [facility] Specimen Source [facility] Specimen Urine Performing Organization Address City/State/Zipcode Phone Number [facility] [address] [place] [address] [place] Urine culture (08/14/2018 10:53 AM CDT)Only the most recent of2 resultswithin the time period is included. Result >100,000 col/mL Raoultella [facility] ornithinolytica (A) [facility] ER Gram Stain Result 4+ gram negative rods [facility] Gram Stain Result 4+ WBCs [facility] [...] Resistant Performing Organization Address City/State/Zipcode Phone Number [facility] [address] [place] [address] [place] Respiratory Panel [facility] (08/14/2018 10:18 AM CDT) Human Metapneumovirus Not detected Not detected, [facility] Equivocal [facility] Rhinovirus Not detected Not detected, [facility] [employer] [facility] Influenza A Not detected Not detected, [facility] [employer] [facility] INFLUENZA A (NO SUBTYPE) Not detected, [facility] Equ[employer]ocal [facility] Influenza A subtype H1 Not detected, [facility] Equivocal [facility] Influenza A Subtype H3 Not detected, [facility] Equivocal [facility] Influenza A Subtype H1-2009 Not detected, [facility] Equivocal [facility] ER Influenza B Not detected Not detected, [facility] [employer] [facility] Respiratory Syncytial Virus Not detected Not detected, [facility] Equ[employer]ocal [facility] Parainfluenza Virus 1 Not detected Not detected, [facility] Equ[employer]ocal [facility] Parainfluenza Virus 2 Not detected Not detected, [facility] Equ[employer]ocal [facility] Parainfluenza virus 3 Not detected Not detected, [facility] Equ[employer]ocal [facility] Parainfluenza Virus 4 Not detected Not detected, [facility] Equivocal [facility] Adenovirus Not detected Not detected, [facility] [employer]ocal [facility] Coronavirus 229E Not detected Not detected, [facility] Equivocal [facility] Coronavirus HKU1 Not detected Not detected, [facility] [employer]ocal [facility] Coronavirus NL63 Not detected Not detected, [facility] [employer]ocal [facility] Coronavirus OC43 Not detected Not detected, [facility] EALTH Equivocal [facility] ER Bordetella Pertussis Not detected Not detected, [facility] Equivocal [facility] ER Chlamydophila Pneumoniae Not detected Not detected, [facility] Equivocal [facility] Mycoplasma Pneumoniae Not detected Not detected, [facility] Equivocal [facility] Specimen Nasopharyngeal Narrative Performed At Other viruses and bacteria not targeted by [facility] this PCR panel cannot be excluded; therefore clinical correlation and follow up of serology, culture results, and other molecular studies is required. The results are not intended to be used as the sole means for clinical diagnosis or patient management decisions. This sample was tested at the [facility] Molecular Diagnostics Laboratory using the Launchr FilmArray Respiratory Panel. It is FDA cleared [...] B. Performing Organization Address City/State/Zipcode Phone Number [facility] [address] [place] [address] CENTER Manual Differential (08/14/2018 5:57 AM CDT)Only the most recent of2 results within the time period is included. % Neutros 86 % [facility] % Lymphs 4 % [facility] % Monos 5 % [facility] % Eos 2 % [facility] % Metamyelo 2 (H) 0 - 0 % [facility] % Myelo 1 (H) 0 - 0 % [facility] # Neutros 9.98 (H) 1.56 - 6.13 K/ul [facility] # Lymphs 0.46 (L) 1.18 - 3.74 K/ul [facility] # Monos 0.58 (H) 0.24 - 0.36 K/uL [facility] # Eos 0.23 0.04 - 0.36 K/uL [facility] # Metamyelo 0.23 (H) 0.00 - 0.00 K/uL [facility] # Myelo 0.12 (H) 0.00 - 0.00 K/uL [facility] Total Counted [address] [facility] [address] [place] [facility] nRBC (manual) 1 (H) 0 - 0 /[address] [facility] WBC Morphology Normal [facility] [place] Platelet Morphology Normal [facility] Polychromasia 1+ few [facility] Hypochromia 1+ few [facility] Artifact Present [facility] [place] Platelet Conc Adequate [facility] Specimen Blood Narrative Performed At Received comment: [facility] User comments: Slide comments: Performing Organization Address [facility] Hospital[facility] Phone Number [address] [address] [place] Blood gas, arterial (08/10/2018 2:27 PM CDT)Only the most recent of4 results within the time period is included. pH, Arterial 7.44 7.35 - 7.45 [facility] pCO2, Arterial 38 35 - 45 mmHg [facility] pO2, Arterial 165 (H) 80 - 90 mmHg [facility] O2 Sat, Arterial 99.2 (H) 96.0 - 97.0 % [facility] HCO3, Arterial 26 21 - 29 mmol/L [facility] Base Excess, Arterial 1.1 -2.0 - 3.0 mmol/L [facility] Francisco Javier [facility] Patient Temperature 36.4 C [facility] FIO2 44.0 % [facility] Specimen Blood, Arterial Performing Organization Address [facility]/Zipcode Phone Number [address] [address] [place] Lactic Acid, Arterial (08/10/2018 2:26 PM CDT)Only the most recent of4 results within the time period is included. Lactate, Art 0.9 0.5 - 2.2 mmol/L [facility] Specimen Blood, Arterial Performing Organization Address City/State/Zipcode Phone Number [facility] [address] [place] [address] [place] ECHOCARDIOGRAM REPORT - SCAN (08/06/2018 9:21 PM CDT) Narrative Performed At This result has an attachment that is no t available. 2D Echo W/Doppler(CW/PW/Color) (08/06/2018 10:34 AM CDT) Ejection Fraction [facility] ECHO HEAR TLAB MKCKESSON [facility] Specimen Narrative Performed At Transthoracic Echocardiography Report (T TE) [facility] ECHO HEARTLAB MKCKESSON CPA Demographics Patient NameCARRILLOSUZAN Date of Study08/06/2018 ESCOBDEO Gender Female Visit [id number] Race [place]pan[place] c [id number] Number Date of 1940 Juan Danielmadeline Reece Physician Age 78 year(s) SonographerPretty reece RDCS Sludge Control Attendant Amber Kaplan RDCS Interpreting Garry davis, Physician [...] 08/06/2018 ESCOBDEO Gend er Female Visit Number [id number] Race Room Number 6212 Number Date of 1940 Refe ing Peyton Palmer S Tramaine bradley Age 78 year(s) Sono roxann Long [facility] Sludge Control Attendant Amber Kaplan RDCS Inte rpreting Tramaine Cormier [...] cm^2 Performing Organization Address City/State/Zipcode Phone Number [facility] [email or web address] ECHOCARDIOGRAM REPORT - SCAN (08/03/2018 9:22 PM CDT) Narrative Performed At This result has an attachment that is no t available. Limited 2D Echocardiogram (08/03/2018 11:17 AM CDT) Ejection Fraction [facility] ECHO HEAR TLAB [employer] Franchise [facility] Specimen Narrative Performed At Transthoracic Echocardiography Report (T TE) [facility] trueEX [facility] Demographics Patient NameCARRILLO, ENEDELIADate of Study08/03/2018 ESCOBDEO Female Visit [id number] Room [id number] Number Date of 1Referring Peyton Reece Physician Age 78 year(s)Safe Expert Cheryl Phan RCS Sludge Control Attendant Nader Finley Interpreting Kash ceja Physician Procedure [...] 08/03/2018 ESCOBDEO Gen cody Female Visit Number [id number] Rac e Janeth Number [id number] Number Date of 1940 Ref erring Peyton Prasadsol ascencio Age 78 year(s) Son timothy Phan, [facility] Sludge Control Attendant Nader Finley Int erpreting Oscar Bedoya MD [...] City/State/Zipcode Phone Number [facility] ECHO HEARTLAB MKCKESSON [facility] Vitamin B12 and Folate (08/03/2018 1:51 AM CDT) Vitamin B12 212 (L) 213 - 816 pg/mL [facility] Folate 15.1 >=7.0 ng/mL [facility] Specimen Blood Performing Organization Address [facility] Phone Number [address] [address] [place] Potassium-Stat Lab (08/02/2018 3:52 AM CDT)Only the most recent of3 results within the time period is included. Potassium 4.6 3.6 - 5.5 meq/L [facility] Specimen Blood, Arterial Performing Organization Address [facility] Phone Number [address] [address] [place] Sodium Na-Stat Lab (08/02/2018 3:52 AM CDT)Only the most recent of3 results within the time period is included. Sodium 136 135 - 148 meq/L [facility] Specimen Blood, Arterial Performing Organization Address [facility] Phone Number [address] [address] [place] Glucose-Stat Lab (08/02/2018 3:52 AM CDT)Only the most recent of3 resultswithin the time period is included. Glucose 272 (H) 70 - 110 mg/dL [facility] Specimen Blood, Arterial Performing Organization Address City/[facility] Phone Number [address] [address] [facility] HGB/HCT (H&H)-Stat Lab (08/02/2018 3:52 AM CDT)Only the most recent of3 resultswithin the time period is included. Hemoglobin 10.9 (L) 12.0 - 15.0 g/dL [facility] Hematocrit 32.0 (L) 36.0 - 45.0 % [facility] Specimen Blood, Arterial Performing Organization Address [facility] Phone Number [address] [address] [place] ECHOCARDIOGRAM REPORT - SCAN (08/01/2018 9:21 PM CDT) Narrative Performed At This result has an attachment that is no t available. Oxygen saturation, measured (08/01/2018 7:07 PM CDT) O2 Saturation (Measured) 41.9 % [facility] Specimen Blood Performing Organization Address [facility] Phone Number [address] [address] [place] Fibrinogen (08/01/2018 7:07 PM CDT) Fibrinogen 336 225 - 434 mg/dl [facility] Specimen Blood Performing Organization Address [facility] Phone Number [address] [address] [place] Electrolytes (08/01/2018 7:07 PM CDT) Sodium 137 136 - 145 meq/L [facility] Potassium 4.8Comment: Specimen slightly 3.5 - 5.1 meq/L [facility] hemolyzed [facility] [place] Chloride 109 (H) 98 - 107 meq/L [facility] CO2 20 (L) 22 - 29 meq/L [facility] Specimen Blood Narrative Performed At Call k > 5, [phone] [facility] Performing Organization Address [facility] Phone Number [address] [address] [place] Hemoglobin and hematocrit (08/01/2018 4:16 PM CDT) Hemoglobin 10.1 (L) 11.2 - 15.7 GM/DL [facility] Hematocrit 31.6 (L) 34.1 - 44.9 % [facility] ALTH [facility] Specimen Blood Performing Organization Address City/[facility]/Zipcode Phone Number [facility] [address] [place] [address] [place] Platelet Aggregation: Function Screen (08/01/2018 8:04 AM CDT) Weak ADP 34 (L) 60 - 91 % [facility] ER Plt. Function Screen 0-39% indicates marked [facility] Interpretation platelet dysfunction [facility] Pathologist: Talia Villarreal MD [facility] (electronic signature) [facility] MEDIC AL [place] Platelets 186 150 - 450 K/CU [facility] ER Specimen Blood Narrative Performed At Platelet Function Screen results may be [facility] falsely low with platelet counts <100,000/cu mm. Performing Organization Address [facility] Phone Number [address] [address] [place] Thrombin time (08/01/2018 4:18 AM CDT) Thrombin Time 64.9 (H) 13.8 - 20.0 secs [facility] Specimen Blood Narrative Performed At Draw baseline aPTT prior to infusion [facility] Performing Organization Address City/[facility]/Zipcode Phone Number [address] [address] [place] 2D Echo W/Doppler(CW/PW/Color) (08/01/2018 2:05 AM CDT) Ejection Fraction [facility] ECHO HEAR TLAB MKCKESSON [facility] Specimen Narrative Performed At Transthoracic Echocardiography Report (T TE) [facility] ECHO HEARTLAB MKCKESSON [facility] Demographics Patient NameCARRILLOSUZAN Date of Study 08/01/2018 ESCOBDEO GenderFemale Visit [id number] RaceUnknown Number [id number] Number Date of 1940 Referring Peyton Reece Physician Age 78 year(s) Safe Expert Nat Kuhn RDCS, RVT InterpretingStep david Pettit [...] 08/01/2018 ESCOBDEO Gend er Female Visit Number [id number] Race Unknown Room Number 6102 Number Date [...] T CI: 3.11 l/min/m^2 Performing Organization Address City/State/[facility] Phone Number [facility] E[facility] HEARTLAB [facility] after 07/29/2018 Insurance Payer Benefit Plan / Group Subscriber ID Type Phone A ddress [employer] ALL xxxxxxxx Maps Contracted MEDICAID [place] xxxxxxxxx Medicaid Advance Directives Patient has advance care planning documents, and code status on file. For more information, please contact:[place] [address] [address] [place], [place] [phone] Code Status Date Activated Date Inactivated Comments [...]
[2019-07-30] MEDS ORDERED: NA CHLORIDE 0.9% 500 ML ONE (06:47)
--- OUTSIDE RECORDS SUMMARY | 2019-07-30 07:16 | XMS REPORT | Continuity of Care Document ---
:1940 Author Organization [facility] t Address [address] [place] [address] Care Team Providers Name Role Phone Marcos Perry Primary Care Physician Unavailable Ky JEREZ, Carli Attending Clinician Unavailable EVELIN MAHMOOD Attending Clinician Unavailable Evelin Mahmood MD Attending Clinician Дмитрий Cortes MD Attending Clinician Manjula BUENO, Tiffanie Attending Clinician Ricardo BUENO, Latrell Attending Clinician Jamaica Bojorquez MD Attending Clinician Deondre Hendricks MD Attending Clinician Sera BUENO Attending Clinician Mary Beth BUENO, Daniel Attending Clinician LATRELL GAMEZ Attending Clinician Unavailable Aleksander Belcher MD Attending Clinician Samina Mendez MD Attending Clinician ALEKSANDER BELCHER Attending Clinician Unavailable CHARU AUGUSTINE Attending Clinician Unavailable Charu Augustine MD Attending Clinician Paul BUENO Attending Clinician Дмитрий CORTES Attending Clinician Unavailable Lauren Attending Clinician Unavailable Carli Delacruz Attending Clinician Unavailable Olman Stuart MD Attending Clinician Pineda BUENO Attending Clinician Edie BUENO Attending Clinician Evelin BUENO Attending Clinician Olman STUART Attending Clinician Unavailable Дмитрий CORTES Admitting Clinician Unavailable JAMAICA BOJORQUEZ Admitting Clinician Unavailable ALEKSANDER BELCHER Admitting Clinician Unavailable PAUL Admitting Clinician Unavailable Olman STUART Admitting Clinician Unavailable Payers Payer Name Policy Policy Number Effective Expiration Source Type Date Date CIGNA HEALTHSPRINGCIGNA xxxxxxxx [facility] MEDICAIDMEDICAID OF xxxxxxxxx [facility] [place] [facility] Problems Condition Condition Condition Status Onset Resolution Last Treating Co mments Source Name Details Category Date Date Treatment Clinician Date NSTEMI NSTEMI Disease Active [facility] (non-ST (non-ST 1-29 [facility] - elevated elevated 00:00: Medica l myocardial myocardial 00 Ce nter infarction infarction ) ) Atrial Atrial Disease Active 2018-[address] [facility] flutter, flutter, 2-11 [facility] - paroxysmal paroxysmal 00:00: Me dical 00 Center Cervical Cervical Disease Active 2018-02 [facility] stenosis stenosis 2-11 [facility] - of spine of spine 00:00: Medica l 00 Center Coronary Coronary Disease Active 2018-02 [facility] artery artery 2-11 [facility] - disease disease 00:00: Medical involving involving 00 Cent er [place] coronary coronary artery of artery of [place] heart heart H/O stroke H/O stroke Disease Active 2018-[address] without without 2-11 [facility] - residual residual 00:00: Medica l deficits deficits 00 Center Troponin Troponin Disease Active 2018-02 [facility] level level 2-11 [facility] - elevated elevated 00:00: Medica l 00 Center 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 2-11 Luke [facility] - diabetes diabetes 00:00: Medica l mellitus mellitus 00 Center with with hyperglyce hyperglyce shital isaacs Peripheral Peripheral Disease Active [facility] arterial arterial 8-15 [facility] - occlusive occlusive 00:00: [facility] disease disease 00 Center Hypertensi Hypertensi Disease Active [facility] ve heart ve heart 8-15 [facility] - and renal and renal 00:00: [facility] disease disease 00 Center with with (congestiv (congestiv e) heart e) heart failure failure Generalize Generalize Disease Active [facility] d anxiety d anxiety 8-15 [facility] - disorder disorder 00:00: Medica l 00 Center Hardening Hardening Disease Active [facility] of the of the 15 [facility] - aorta aorta 00:00: Medical (main (main 00 Center artery of artery of the heart) the heart) Obstructiv Obstructiv Disease Active [facility] e sleep e sleep 8-15 [facility] - apnea apnea 00:00: Medical syndrome syndrome 00 Center Osteoporos Osteoporos Disease Active [facility] is is 815 [facility] - 00:00: Medical 00 Center 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 815 [facility] - to type 2 to type 2 00:00: [facility] diabetes diabetes 00 Center mellitus mellitus Chronic Chronic Disease Active [facility] systolic systolic 7-01 [facility] - CHF CHF 00:00: Medical (congestiv (congestiv 00 Ce nter e heart e heart failure) failure) CKD CKD Disease Active [facility] (chronic (chronic 612 [facility] - kidney kidney 00:00: Medical disease) disease) 00 Center stage 4, stage 4, GFR 15-29 GFR 15-29 ml/min ml/min IDDM IDDM Disease Active [facility] (insulin (insulin 612 [facility] - dependent dependent 00:00: [facility] diabetes diabetes 00 Center mellitus) mellitus) NSTEMI s/p NSTEMI s/p Disease Active [facility] Impella Impella 6-12 [facility] - PCI by PCI by 00:00: La rula Cortes [place] 00 Center 08/01/18 08/01/18 Unstable Unstable Disease Active [facility] angina angina 611 [facility] - 00:00: Medical 00 Center Mixed Mixed Disease Active 2016-[address] [facility] hyperlipid hyperlipid 0-19 Amalia kes - emia emia 00:00: Medical 00 Center Poorly-con Poorly-con Disease Active [facility] trolled trolled 5- [facility] - hypertensi hypertensi 00:00: Me dical on on 00 Center Cervical Cervical Problem Active [facility] stenosis stenosis [facility] - of spine of spine Memori a l [facility] ent [facility] Other Other Problem Active [facility] osteoporos osteoporos Amalia kes - is is [facility]ics Stented Stented Problem Active [facility] coronary coronary [facility] - artery artery Memoria l [facility]pat[facility] ent Clinics Proteinuri Proteinuri Problem Active [facility] a, a, [facility] - unspecifie unspecifie Me moria d d [facility] 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 [facility] - [place] Memoria coronary coronary l artery artery Outpati ent Clinics H/O stroke H/O stroke Problem Active [facility] without without [facility] - residual residual Memori a deficits deficits l Outpati ent Clinics At risk At risk Problem Active [facility] for for [facility] - falling falling Memoria l Outpati ent Clinics Chronic Chronic Problem Active [facility] kidney kidney [facility] - disease, disease, Memori a stage 4 stage 4 l (severe) (severe) Outpat i ent Clinics [facility] intermission coordinator Problem Active [facility] current current [facility] [...] hyperlipid hyperlipid Amalia kes - emia emia Memoria l Outpati ent Clinics Hypertensi Hypertensi Problem Active [facility] ve heart ve heart [facility] - disease disease Memoria without without l heart heart Outpati failure failure ent Clinics Cervical Cervical Problem Active [facility] stenosis stenosis [facility] - (uterine (uterine Memori a cervix) cervix) l Outpati ent Clinics Primary Primary Problem Active [facility] hypersomni hypersomni Amalia kes - a a [facility] l [facility]pat[facility] ent Clinics Primary Primary Problem Active [facility] osteoarthr osteoarthr Amalia kes - [facility] left knee [facility] Primary Primary Problem Active [facility] osteoarthr osteoarthr Amalia kes - [facility] right knee right knee l Outpati ent Clinics Pain, Pain, Problem Active [facility] joint, joint, [facility] - knee, knee, Memoria right right l [facility] Acute pain Acute pain Problem Active [facility] of left of left [facility] - knee knee [facility] l [facility] Adult BMI Adult BMI Problem Active [facility] 36.0-36.9 36.0-36.9 Luke s - kg/sq m kg/sq m [facility] l [facility] Coronary Coronary Problem Active [facility] artery artery [facility] - disease disease [facility] involving involving l [place] [facility] coronary coronary ent artery of artery of Clin ics [place] heart with heart with unstable unstable angina angina pectoris pectoris History of History of Problem Active [facility] cholecyste cholecyste Amalia kes - ctomy ctomy [facility] Atrial Atrial Problem Active [facility] flutter, flutter, [facility] - unspecifie unspecifie Me moria d type d type l [facility] NSTEMI NSTEMI Problem Active [facility] (non-ST (non-ST [facility] - elevated elevated Memori a myocardial myocardial l infarction infarction Ou tpati ) ) ent Clinics Allergies, Adverse Reactions, Alerts Allergy Allergy Status Severity Reaction(s) Onset Inactive Treating Comm ents Source Name Type Date Date Clinician Diphenhy Propensi Active Palpitations [facility] dramine ty to 07-31 [facility] - Hcl adverse 00:00: Medical reaction 00 Diamond s Codeine Propensi Active Hives [facility] ty to 6 [facility] - adverse 00:00: Medical reaction 00 Diamond s Iodine Propensi Active Anaphylaxis [facility] And ty to 07-31 [facility] - Iodide adverse 00:00: Medical Containi reaction 00 Diamond ng s Products Levoflox Propensi Active Tinitus [facility] acin ty to 6 [facility] - adverse 00:00: Medical reaction 00 Diamond s Morphine Propensi Active Anaphylaxis [facility] ty to 07-31 [facility] - adverse 00:00: Medical reaction 00 Diamond s Prometha Propensi Active Nausea Only [facility] zine ty to 07-31 [facility] - adverse 00:00: Medical reaction 00 Center s Metoclop Drug Active Nausea Only [facility] ramide Intolera 07-31 [facility] - Hcl nce 00:00: Medical 00 Center Hydrocod Propensi Active Anaphylaxis [facility] one-Acet ty to 07-31 [facility] - aminophe adverse 00:00: Medical n reaction 00 Diamond s iodine DA Active [facility] 07[facility]28 [facility] 00:00: Region[facility] 00 [facility] morphine DA Active [facility] 07[facility]28 [facility] 00:00: Regiona 00 [facility] Benadryl Adverse Active Info Not [facility] Reaction Available [facility] ent [facility] ALL PAIN Adverse Active Swelling of [facility] NARCOTIC Reaction throat, [facility] - S hands [facility] ent [facility] CONTRAST Adverse Active Info Not [facility] DYE Reaction Available [facility] Amiodaro Adverse Active Info Not [facility] ne HCl Reaction Available [facility] Levaquin Adverse Active Info Not [facility] Reaction Available [facility] ent [facility] Social History Social Habit Start Date Stop Date Quantity Comments Source History SDOH Alcohol [facility] Std Drinks [facility] History SDOH Alcohol [facility] Binge [facility] Sex Assigned At [facility] History SDOH Alcohol 2018-11-10 2018-11-[address] [facility] - Frequency 00:00:00 00:00:00 [facility] Smoking Status Start Date Stop Date Source Never smoker [facility] edical Diamond Medications Ordered Filled Start Stop Current Ordering Indication Dosage Frequency Signature Comments Components Source Medication Medication Date Date Medication? Clinician (SIG) Name Name Ranolazine Ranolazine Yes John [address] [facility] ER ER 4-15 Perry [facility] - 00:00: Memoria 00 [facility] ent [facility] Brilinta Brilinta 0 Yes John [address] [facility] 4-15 Perry [facility] - 00:00: Memoria 00 [facility] ent [facility] clopidogrel 2019-0 2020- No 1{tbl} QD Take [address] (PLAVIX) 75 4-08 04-08 tablet by Amalia kes - mg tablet 14:11: 00:00 mouth Medica l 09 :00 daily. Center insulin 2020-0 Yes 10U QD Inject 10 [facility] degludec 4-08 Units [facility] - (TRESIBA 13:59: subcutaneo Med ical FLEXTOUCH 31 usly every Cent er U-100 SUBQ) morning. ticagrelor 2020-0 Yes 90mg Q.5D Take 1 [facility] (BRILINTA) 4-08 tablet (90 Penny es - 90 mg Tab 00:00: mg total) Med ical tablet 00 by mouth 2 Center (two) times daily. pantoprazol 2020-0 Yes 40mg Take [address] [facility] [facility] e 2-02 tablet (40 [facility] - (PROTONIX) 00:00: mg total) Me dical 40 MG 00 by mouth Center tablet every morning before breakfast. aspirin 81 2020-0 Yes 81mg Take [address] MG chewable 2-01 by mouth Luke s - tablet 12:20: every Medical 17 other day. Diamond cholecalcif 2020-0 Yes 4000U QD Take 4,[address] [facility] [facility] shun, 1-28 Units by [facility] - vitamin D3, 23:31: mouth Medic al 4,000 unit 01 daily. Diamond Tab calcitriol 2018-02 Yes .5ug QD Take 0.[address] (ROCALTROL) 2-06 [facility]cg [facility] - 0.5 MCG 22:10: mouth Medical capsule 23 daily. Diamond metoprolol 2018-02- No 50mg Q.5D Take [address] (LOPRESSOR) 02-24 11-04 tablet (50 L ukes - 50 MG 00:00: 23:59 mg total) Medica l tablet 00 :00 by mouth 2 Diamond (two) times daily. insulin 2018-02- No To use via [facility] lispro -05 02- sliding [facility] - (HUMALOG 00:00: 00:00 scale from La dicbola FORDEPEN 00 :00 4 to 14 Center INSULIN) units 100 unit/mL three InPn times A day.. isosorbide 2018-02 2019- No 30mg QD Take [address] [address] mononitrate -05 12-06 tablet (30 L ukes - (IMDUR) 30 00:00: 00:00 mg total) M edical MG 24 hr 00 :00 by mouth Center tablet daily. isosorbide 2018- No 60mg QD Take [address] mononitrate 9-25 11-05 tablet (60 L ukes - (IMDUR) 60 00:00: 00:00 mg total) M edical MG 24 hr 00 :00 by mouth Center tablet daily. ferrous 2019- No 325mg Q.5D Take [address] sulfate 325 11-13 tablet [facility]ukes - (65 FE) MG 00:00: 00:00 (325 mg Med ical tablet 00 :00 total) by Center mouth 2 (two) times daily. ranolazine 2019- No 500mg Q.5D Take [address] (RANEXA) 11-13 tablet [facility] - 500 MG 12 00:00: 00:00 (500 mg Medi krystina hr tablet 00 :00 total) by Cente r mouth 2 (two) times daily. carvedilol 2018- No 6.25mg Q.5D Take 6.[address] (COREG) 8-28 11-05 mg by [facility] - 6.25 MG 00:00: 00:00 mouth 2 Medica l tablet 00 :00 (two) Center times daily. bumetanide Yes 2mg Q.5D Take [address] (BUMEX) 1 8-26 by mouth 2 Luke s - MG tablet 00:00: (two) Medical 00 times Center daily . TRADJENTA 5 Yes 5mg QD Take [address] mg Tab 8-14 by mouth [facility] - 00:00: daily. [facility] 00 Center epoetin 2019- No 43328S Inject [address] rubina-epbx 08-22 mL (10,000 Penny es - (RETACRIT) 00:00: 00:00 Units Medic al 10,000 00 :00 total) Center unit/mL subcutaneo Soln usly every injection other day If hemoglobin less than 9. folic acid 2019- No 1mg QD Take [address] [facility] (FOLVITE) 1 08-21 tablet (1 Amalia kes - MG tablet 00:00: 23:59 mg total) Me dical 00 :00 by mouth Center daily. aspirin 81 2019- No 81mg QD Take [address] [facility] [facility] MG chewable 08-21 tablet (81 L ukes - tablet 00:00: 00:00 mg total) Medic al 00 :00 by mouth Center daily. cyanocobala 2019- No 1000ug QD Inject [address] [facility] [facility] min 08-21 mL (1,000 [facility] - (VITAMIN 00:00: 00:00 mcg total) Me dical B-12) 1,000 00 :00 intramuscu Ce nter mcg/mL larly injection daily. thiamine 2019- No 100mg QD Take 1 [facility] 100 MG 08-21 tablet [facility] - tablet 00:00: 00:00 (100 mg Medical 00 :00 total) by Center mouth daily. pantoprazol 2019- No 40mg QD Take [address] [facility] e 08-21 tablet (40 [facility] - (PROTONIX) 00:00: 00:00 mg total) M edical 40 MG 00 :00 by mouth Center tablet daily. amiodarone 2018- No 200mg QD Take [address] [facility] [facility] (PACERONE) 08-21 tablet [facility] - 200 MG 00:00: 00:00 (200 mg Medical tablet 00 :00 total) by Center mouth daily. ALPRAZolam 2018- No anxiety .5mg Take 0.[address] [facility] (XANAX) 0.5 08-20 mg by [facility]ukes - MG tablet 14:07: 00:00 mouth as Med ical 50 :00 needed for Center Anxiety. amLODIPine 2018- No 10mg QD Take [address] [facility] (NORVASC) 08-20 by mouth [facility]ukes - 10 MG 13:56: 00:00 daily. Medical tablet 24 :00 Center hydrALAZINE 2018- No 25mg Q.5D Take [address] [facility] (APRESOLINE 08-20 by mouth 2 L ukes - ) 25 MG 13:56: 00:00 (two) Medical tablet 24 :00 times Center daily. metoprolol 2018- No 1{tbl} QD Take [address] ta-hydrochl 08-20 tablet by Amalia kes - orothiaz 13:56: 00:00 mouth Medical (LOPRESSOR 24 :00 daily. Center HCT) 100-50 mg per tablet metoprolol 2018- No 100mg Q.5D Take [address] (LOPRESSOR) 08-20 mg by [facility] - 100 MG 13:56: 00:00 mouth 2 Medical tablet 24 :00 (two) Center times daily. furosemide 2018- No 40mg QD Take [address] (LASIX) 40 08-20 by mouth Luke s - MG tablet 13:56: 00:00 daily. Medic al 24 :00 Center metoprolol 2018- No 100mg Q.5D Take [address] (TOPROL-XL) 08-20 mg by [facility] - 100 MG 24 13:56: 00:00 mouth 2 Medi krystina hr tablet 24 :00 (two) Center times daily. linagliptin 2018- No 5mg QD Take [address] [facility] (TRADJENTA) 08-20 by mouth Penny es - 5 mg Tab 13:56: 00:00 daily. Medica l 24 :00 Center LORazepam Yes .5mg Take [address] [facility] [facility] (ATIVAN) 08-20 tablet [facility] - 0.5 MG 00:00: (0.5 mg Medical tablet 00 total) by Center mouth daily as needed for Anxiety. Max Daily Amount: 0.5 mg atorvastati 2019- No 80mg QD Take [address] [facility] [facility] n (LIPITOR) 08-20 tablet (80 L ukes - 80 MG 00:00: 23:59 mg total) Medica l tablet 00 :00 by mouth Center nightly. nitroglycer 2019- No Put [address] [facility] in 08-20 under [facility]ukes - (NITROSTAT) 00:00: 23:59 tongue Med ical 0.4 MG SL 00 :00 every 5min Cent er tablet as needed for chest pain.No more than 3 doses in 15min.. acetaminoph 2019- No 1000mg Take [address] en 08-20 tablets [facility] - (TYLENOL) 00:00: 00:00 (1,000 mg Me dical 500 MG 00 :00 total) by Center tablet mouth every 6 (six) hours as needed. glucagon, 2019- No 1mg Inject [address] [facility] human 08-20 mL (1 mg [facility]ukes - recombinant 00:00: 00:00 total) Med ical , 1 mg/mL 00 :00 intramuscu Cent er SolR larly as injection needed (Hypoglyce shital and patient unable to take PO and has no IV access ). ipratropium 2018- 2020- No .5mg Take 2.[address] (ATROVENT) 08-20 mLs (0.5 Luke s - 0.02 % 00:00: 00:00 mg total) Medic al nebulizer 00 :00 by Diamond solution nebulizati on every 6 (six) hours. senna-docus 2020- No 2{tbl} Q.5D Take [address] ate 08-20 tablets by [facility] - (SENOKOT S) 00:00: 00:00 mouth 2 Me dical 8.6-50 mg 00 :00 (two) Center per tablet times daily. mINOCYCLine 2019- No 100mg Take [address] (MINOCIN,DY 08-20 capsule Luke s - NACIN) 100 00:00: 00:00 (100 mg Med ical MG capsule 00 :00 total) by Cent er mouth every 12 (twelve) hours Continue as long as patient has open, draining wound. insulin 2019- No 0U Inject [facility] lispro 08-20 0-12 Units [facility] - (HUMALOG) 00:00: 00:00 subcutaneo M edical 100 unit/mL 00 :00 usly as Cente r injection needed (High blood sugar). bumetanide 2019- No .5mg Take [address] (BUMEX) 0.5 08-20-24 tablet [facility]ukes - MG tablet 00:00: 00:00 (0.5 mg Medi krystina 00 :00 total) by Center mouth 2 (two) times daily with breakfast and dinner. heparin 2019- No 5000U Inject [address] [facility] [address] injection 08-20- mL (5,000 Luke s - 5,000 00:00: 00:00 Units Medical units/mL 00 :00 total) Center for DVT subcutaneo prophylaxis usly every /dialysis 12 lock/IV (twelve) bolus hours. metoprolol 2019- No 25mg Q.5D Take [address] (LOPRESSOR) 08-20- tablet (25 L ukes - 25 MG 00:00: 00:00 mg total) Medica l tablet 00 :00 by mouth 2 Center (two) times daily. oxymetazoli 2019- No 2{spray [address] ne (AFRIN) 08-20 } by Nasal Luke s - 0.05 % 00:00: 23:59 route 2 Medical nasal spray 00 :00 (two) Center times daily as needed (epistaxis ) for up to 3 days. meropenem 2019- No 500mg Q24H Inject [address] (MERREM) 08-20 mg [facility]ukes - MBP 500 mg 00:00: 23:59 intravenou Medical in 100 mL 00 :00 sly daily Cente r NS for 3 days. simvastatin 2019- No .5{tbl} QD Take 0.[address] (ZOCOR) 40 07-01- tablets by Amalia kes - MG tablet 00:00: 00:00 mouth Medica l 00 :00 every Center evening. RESTASIS 2020- No 1[drp] Q.5D Place [address] [facility] [address] 0.05 % 06-14 drop into [facility]ukes - ophthalmic 00:00: 00:00 both eyes M edical emulsion 00 :00 2 (two) Center times daily. Tradjenta Tradjenta Yes John [address] 5-14 Perry [facility] - 00:00: Memoria 00 l Outpati ent Clinics insulin 2016-02 2019- No 10U QD Inject [address] degludec 04-18 07-01 Units [facility] - (TRESIBA 00:00: 00:00 subcutaneo Me dical FLEXTOUCH 00 :00 [facility] Center U-200) 200 daily. unit/mL (3 mL) InPn Clopidogrel Clopidogrel Yes John [address] [facility] Bisulfate Bisulfate Perry Luke s - Memoria l Outpati ent Clinics Cranberry Cranberry Yes John not [facility] Extract Extract Perry defined [facility] - Memoria l [facility]pat[facility] Clinics Tresiba Tresiba Yes John [address] FlexTouch FlexTouch Perry [facility] - Memoria l Outpat[facility] ent Clinics Lactobacill Lactobacill Yes John not [facility] us us Perry defined [facility] - Memoria l [facility] Nitrostat Nitrostat Yes John as [facility] directed [facility] - Memoria l [facility] Senna S Senna S Yes John [address] [facility] [place] in the [facility]ukes - evening as Memoria needed l [facility]ics Cyanocobala Cyanocobala Yes John [address] [facility] min min Perry [facility] - Memoria l [facility] Thiamine Thiamine Yes John [address] HCl HCl Perry [facility] - Memoria l [facility] Lipitor Lipitor Yes John [address] [facility] - Memoria l [facility] Aspir-Low Aspir-Low Yes John [address] [facility] - Memoria l [facility] Vitamin D-3 Vitamin D-3 Yes John as [facility] directed [facility] - Memoria l [facility] BD Pen BD Pen Yes John USE [facility] Needle Mini Needle Mini Perry DIRECTED [facility] - U/F U/F Memoria l [facility]ics Ferrous Ferrous Yes John TAKE 1 [facility] Sulfate Sulfate Perry TABLET BY Penny es - MOUTH Memoria TWICE A l DAY [facility] Bumetanide Bumetanide Yes John TAKE [address] [facility] [place] TABLET BY Lukes - MOUTH Memoria TWICE A l DAY [facility] Metoprolol Metoprolol Yes John [address] Tartrate Tartrate Perry with food [facility] Protonix Protonix Yes John [address] [place] mixed with Lukes - apple Memoria juice or l applesauce [facility] Atorvastati Atorvastati Yes John TAKE [address] [facility] n Calcium n Calcium Perry TABLET BY [facility]ukes - MOUTH Memoria EVERY DAY l [facility] Folic Acid Folic Acid Yes John TAKE [address] [facility] [place] TABLET BY [facility]ukes - MOUTH Memoria EVERY DAY l [facility] Calcitriol Calcitriol Yes John TAKE [address] [facility] [place] CAPSULE BY Lukes - MOUTH Memoria EVERY DAY l [facility] Brilinta Brilinta Yes John TAKE [address] [facility] [place] TABLET BY [facility]ukes - MOUTH Memoria TWICE A l DAY [facility] Clinics Calcitriol Calcitriol 2019- No John [address] [address] 10-14 [facility] Immunizations Ordered Filled Immunization Date Status Comments Sourc e Immunization Name Name Amanda Patel 2018-12-03 Completed [facility] - 00:00:00 [facility] Vital Signs Vital Name Observation Time Observation Value Comments Source Systolic blood 2019-05-29 14:00:00 101 mm[Hg] [facility] Diastolic blood 2019-05-29 14:00:00 47 mm[Hg] [facility] Heart rate 2019-05-29 14:00:00 75 /min [facility] Respiratory rate 2019-05-29 14:00:00 15 /min [facility] Oxygen saturation in 2019-05-29 14:00:00 95 /min [facility] Arterial blood by Medical Ce nter Pulse oximetry Body temperature 2019-05-29 10:00:00 36.67 Sirisha [facility] Body weight Measured 2019-05-29 04:00:00 84.8 kg [facility] BMI 2019-05-29 04:00:00 35.32 kg/m2 [facility] Body height 2019-05-27 23:00:00 154.9 cm [facility] Procedures Procedure Date / Time Performing Clinician Source Performed VASCULAR DIAGRAM -SCAN 2019-05-31 12:41:14 Provider, Default [facility] CARDIAC CATH REPORT - SCAN 2019-05-31 10:31:07 Provider, Default [facility] RHYTHM STRIP - SCAN 2019-05-31 10:31:06 Provider, Default [facility] PERIPHERAL VASCULAR REPORT 2019-05-29 21:10:12 Provider, Default [facility] - - SCAN [facility] POCT-GLUCOSE METER 2019-05-29 13:24:00 Daya [facility] REPORT OF PROCEDURE - 2019-05-29 12:10:57 Provider, Default [facility] ENDOSCOPY SCAN Scanning [facility] [facility] REPORT OF PROCEDURE - 2019-05-29 12:10:55 Provider, Default [facility] ENDOSCOPY SCAN [facility] PLATELET AGGREGATION: DRUG 2019-05-29 09:27:00 Christian Ríos [facility] POCT-GLUCOSE METER 2019-05-29 07:41:00 Daya Fair kit [facility] B-TYPE NATRIURETIC FACTOR 2019-05-29 04:41:00 Nas Minor [facility] (BNP) [facility] CALCIUM, IONIZED 2019-05-29 04:41:00 Nas Minor [facility] MAGNESIUM 2019-05-29 04:41:00 Nas Minor [facility] PHOSPHORUS 2019-05-29 04:41:00 Nas Minor [facility] CREATINE KINASE (CK) 2019-05-29 04:41:00 Nas Minor [facility] URIC ACID 2019-05-29 04:41:00 Nas Minor [facility] CBC (HEMOGRAM ONLY) 2019-05-29 04:41:00 Radha Mahmood [facility] BASIC METABOLIC PANEL (7) 2019-05-29 04:41:00 Delbert Morales [facility] CBC W/PLT COUNT & AUTO 2019-05-29 04:41:00 Delbert Morales [facility] US RENAL COMPLETE 2019-05-29 01:30:00 Nas Minor [facility] POCT-GLUCOSE METER 2019-05-28 21:32:00 ManjulaDaya gonzales kit [facility] POCT-ACT 2019-05-28 20:28:00 ManjulaDaya [facility]onzales [facility] URINALYSIS W/ MICROSCOPIC 2019-05-28 18:20:00 Nas Minor [facility] POCT-ACT 2019-05-28 18:08:00 ManjulaTiffany [facility]Mer[facility]baMatt[facility] VENOUS DOPPLER LEGS 2019-05-28 17:05:00 Delbert Bentley [facility] BASIC METABOLIC PANEL (7) 2019-05-28 16:19:00 Christian Ríos [facility] CBC (HEMOGRAM ONLY) 2019-05-28 16:19:00 Christian Ríos [facility] POCT-ACT 2019-05-28 16:17:00 Peyton, [facility] POCT-ACT 2019-05-28 14:32:00 Peyton, [facility] POCT-ACT 2019-05-28 13:45:00 Peyton, [facility] POCT-ACT 2019-05-28 13:34:00 Peyton, [facility] L CATH & PCI 2019-05-28 13:10:00 Peyton, [facility] CREATININE, RANDOM URINE 2019-05-28 12:35:00 [facility] SODIUM, RANDOM URINE 2019-05-28 12:35:00 [facility] PROTEIN, RANDOM URINE 2019-05-28 12:35:00 [facility] POCT-GLUCOSE METER 2019-05-28 12:02:00 Peyton, [facility] POCT-GLUCOSE METER 2019-05-28 09:31:00 [facility] APTT 2019-05-28 08:11:00 Jennifer [facility] CBC (HEMOGRAM ONLY) 2019-05-28 06:37:00 Radha Mahmood [facility] BASIC METABOLIC PANEL (7) 2019-05-28 06:37:00 Delbert Morales [facility] CBC W/PLT COUNT & AUTO 2019-05-28 06:37:00 Delbert Morales [facility] APTT 2019-05-28 06:02:00 Delbert Morales [facility] TROPONIN I 2019-05-28 04:20:00 Radha Mahmood [facility] APTT 2019-05-27 23:42:00 Jennifer [facility] PT/APTT 2019-05-27 23:41:00 Jennifer [facility] CBC W/PLT COUNT & AUTO 2019-05-27 23:41:00 Jennifer [facility] BASIC METABOLIC PANEL (7) 2019-05-27 23:25:00 Jennifer [facility] TROPONIN I 2019-05-27 23:25:00 Jennifer [facility] B-TYPE NATRIURETIC FACTOR 2019-05-27 23:24:00 Jennifer [facility] (BNP) [facility] PLATELET COUNT 2019-05-27 23:22:00 Jennifer [facility] ECG 12-LEAD 2019-05-27 23:14:56 Jennifer [facility] ECG 12-LEAD 2019-05-27 22:06:53 Unknown, Hl7 [facility] XR CHEST 1 VIEW 2019-05-27 11:05:00 Jennifer [facility]/BEDSIDE [facility] VASCULAR DIAGRAM -SCAN 2019-03-27 14:02:13 Provider, [facility] RHYTHM STRIP - SCAN 2019-03-26 14:31:23 Provider, [facility] VASCULAR DIAGRAM -SCAN 2019-03-26 08:41:44 [facility] REPORT OF PROCEDURE - 2019-03-26 08:41:40 Provider, [facility] ENDOS[facility] CARDIAC CATH REPORT - SCAN 2019-03-26 08:41:[address] [facility] CARDIAC CATH REPORT - SCAN 2019-03-26 08:41:35 [facility] RHYTHM STRIP - SCAN 2019-03-26 08:41:22 [address], [facility] PERIPHERAL VASCULAR REPORT 2019-03-23 21:20:50 Provider, [facility] POCT-GLUCOSE METER 2019-03-23 11:39:00 Berlin Bojorquez [facility] POCT-GLUCOSE METER 2019-03-23 08:22:00 Hasan, [place] Ali [facility] COMPREHENSIVE METABOLIC 2019-03-23 05:27:00 Cosmo [facility] CBC W/PLT COUNT & AUTO 2019-03-23 03:36:00 [facility] POCT-GLUCOSE METER 2019-03-22 21:57:00 [place] Bojorquez [facility] ECHOCARDIOGRAM REPORT - 2019-03-22 21:20:52 Provider, Critical access hospital I [facility] CAROTID DOPPLER BILATERAL 2019-03-22 19:42:00 Devaughn Herrera [facility] POCT-GLUCOSE METER 2019-03-22 17:18:00 [place] Bojorquez [facility] BASIC METABOLIC PANEL (7) 2019-03-22 15:55:00 [facility] p [facility] CBC (HEMOGRAM ONLY) 2019-03-22 15:55:00 Cecilio Dominic [facility] POCT-GLUCOSE METER 2019-03-22 15:00:00 Berlin Bojorquez [facility] 2D ECHO W/ DOPPLER 2019-03-22 14:04:35 Peyton [facility] (CW/PW/COLOR) [facility] POCT-ACT 2019-03-22 10:59:00 [place] Bojorquez [facility] POCT-ACT 2019-03-22 10:32:00 Reno Berlin [facility] L CATH & PCI 2019-03-22 10:18:00 Peyton [facility] POCT-GLUCOSE METER 2019-03-22 07:33:00 [place] Bojorquez [facility] APTT 2019-03-22 02:06:00 Peyton [facility] BASIC METABOLIC PANEL (7) 2019-03-22 02:06:00 [place] Bojorquez [facility] B-TYPE NATRIURETIC FACTOR 2019-03-22 02:06:00 Nas Minor [facility] ([facility]) [facility] CALCIUM, IONIZED 2019-03-22 02:06:00 Nas Minor [facility] MAGNESIUM 2019-03-22 02:06:00 Nas Minor [facility] PHOSPHORUS 2019-03-22 02:06:00 Nas Minor [facility] LIPID PANEL 2019-03-22 02:06:00 Devaughn Herrera [facility] CBC W/PLT COUNT & AUTO 2019-03-22 02:06:00 Nas Minor CH I [facility] US ABDOMEN COMPLETE 2019-03-22 00:10:00 [facility] 2019-03-21 21:24:00 [place] Bojorquez [facility] APTT 2019-03-21 18:57:00 [place] Bojorquez [facility] POCT-GLUCOSE METER 2019-03-21 17:26:00 [place] Bojorquez [facility] ECG 12-LEAD 2019-03-21 17:24:35 Unknown, Hl7 [facility] CT BRAIN WITHOUT IV 2019-03-21 16:58:00 [place] Bojorquez [facility] TROPONIN I 2019-03-21 15:07:00 Nas Minor [facility] XR SHOULDER LEFT COMPLETE 2019-03-21 14:25:[address] [facility] 2 VIEWS [facility] POCT-GLUCOSE METER 2019-03-21 12:58:00 [place] Bojorquez Francisco [facility] REPORT OF PROCEDURE - 2019-03-21 12:27:13 Nely Clinton [facility] ENDOSCOPY [facility] UPPER ENDOSCOPY 2019-03-21 12:00:00 Nely Clinton [facility] APTT 2019-03-21 10:36:00 [place] Bojorquez [facility] POCT-GLUCOSE METER 2019-03-21 07:39:00 [place] Bojorquez [facility] APTT 2019-03-21 03:19:00 Spencer Cortes [facility] BASIC METABOLIC PANEL (7) 2019-03-21 02:23:00 [place] Bojorquez [facility] CBC (HEMOGRAM ONLY) 2019-03-21 02:22:00 [place] Bojorquez [facility] POCT-GLUCOSE METER 2019-03-20 21:46:00 [place] Bojorquez [facility] APTT 2019-03-20 19:09:00 [place] Bojorquez [facility] POCT-GLUCOSE METER 2019-03-20 18:20:00 [place] Bojorquez [facility] PROTEIN, RANDOM URINE 2019-03-20 17:57:00 [facility] CREATININE, RANDOM URINE 2019-03-20 17:57:00 [facility] URINALYSIS W/ MICROSCOPIC 2019-03-20 17:57:00 [facility] XR CHEST 1 VIEW 2019-03-20 15:12:00 Nas Minor [facility] APTT 2019-03-20 12:19:00 Fredrick Gamez [facility] TROPONIN I 2019-03-20 12:19:00 Felton Cardenas [facility] POCT-GLUCOSE METER 2019-03-20 11:45:00 [place] Bojorquez [facility] POCT-GLUCOSE METER 2019-03-20 07:37:00 [place] Bojorquez [facility] TROPONIN I 2019-03-20 05:54:00 Felton Cardenas [facility] BASIC METABOLIC PANEL (7) 2019-03-20 00:43:00 Felton Cardenas [facility] MAGNESIUM 2019-03-20 00:43:00 Felton Cardenas [facility] HEMOGLOBIN A1C 2019-03-20 00:43:00 Felton Cardenas [facility] TROPONIN I 2019-03-20 00:43:00 Felton Cardenas [facility] APTT 2019-03-20 00:43:00 Felton Cardenas [facility] CBC W/PLT COUNT & AUTO 2019-03-20 00:43:00 Felton [facility] 12-LEAD 2019-03-20 00:29:38 Unknown, Hl7 [facility] RHYTHM STRIP - SCAN 2019-02-06 11:22:14 Provider, [facility] REPORT OF PROCEDURE - 2019-02-01 09:00:28 Provider, [facility] ENDOSCOPY SCAN [facility] RHYTHM STRIP - SCAN 2019-02-01 09:00:[address], [facility] POCT-GLUCOSE METER 2019-01-30 09:05:00 Romain Mendez [facility] ECG 12-LEAD 2019-01-30 06:27:50 Josué Villagomez [facility] BASIC METABOLIC PANEL (7) 2019-01-30 05:56:00 Nas Minor [facility] B-TYPE NATRIURETIC FACTOR 2019-01-30 05:56:00 Nas Minor [facility] (BNP) [facility] CALCIUM, IONIZED 2019-01-30 05:56:00 Nas Minor [facility] MAGNESIUM 2019-01-30 05:56:00 Nas Minor [facility] PHOSPHORUS 2019-01-30 05:56:00 Nas Minor [facility] URIC ACID 2019-01-30 05:56:00 Nas Minor [facility] CBC W/PLT COUNT & AUTO 2019-01-30 05:56:00 Nas Minor I [facility] POCT-GLUCOSE METER 2019-01-29 21:09:00 Romain Mendez [facility] POCT-GLUCOSE METER 2019-01-29 17:02:00 Romain Mendez [facility] SODIUM, RANDOM URINE 2019-01-29 14:24:00 Delbert Barron [facility] CREATININE, RANDOM URINE 2019-01-29 14:24:00 Delbert Barronpatt [facility] URINALYSIS W/ MICROSCOPIC 2019-01-29 14:24:00 Delbert Barron [facility] PROTEIN, RANDOM URINE 2019-01-29 14:24:00 Nas Minor [facility] BASIC METABOLIC PANEL (7) 2019-01-29 13:24:00 [facility]IUM 2019-01-29 13:24:00 Nas Minor [facility] PHOSPHORUS 2019-01-29 13:24:00 Iván [facility] XR CHEST 1 VIEW 2019-01-29 13:14:00 Nas Minor [facility] POCT-GLUCOSE METER 2019-01-29 11:38:00 Andrea Romain [facility] POCT-GLUCOSE METER 2019-01-29 07:45:00 Andrea Romain [facility] ECG 12-LEAD 2019-01-29 06:42:02 Unknown, Hl7 [facility] CBC (HEMOGRAM ONLY) 2019-01-29 05:04:00 [facility] POCT-GLUCOSE METER 2019-01-28 21:56:00 Romain Mendez [facility] ECHOCARDIOGRAM REPORT - 2019-01-28 21:21:26 Provider, Default [facility] I [facility] C. DIFFICILE GDH TOXIN 2019-01-28 18:41:00 Ye [facility] OCCULT BLOOD, STOOL 2019-01-28 18:40:00 Dahlia [facility] POCT-GLUCOSE METER 2019-01-28 11:46:00 Ye [facility] 2D ECHO W/ DOPPLER 2019-01-28 11:25:00 Dahlia [facility] (CW/PW/COLOR) [facility] APTT 2019-01-28 08:48:00 Dahlia [facility] POCT-GLUCOSE METER 2019-01-28 08:28:00 [facility] CBC (HEMOGRAM ONLY) 2019-01-28 04:28:00 [facility] BASIC METABOLIC PANEL (7) 2019-01-28 04:28:00 Christian Ríos [facility] APTT 2019-01-28 04:28:00 [facility] POCT-GLUCOSE METER 2019-01-27 22:00:00 [facility] AP[facility] 2019-01-27 21:12:00 [facility] POCT-GLUCOSE METER 2019-01-27 17:39:00 [facility] PT[facility] 2019-01-27 16:27:00 [facility] PT/[facility] 2019-01-27 12:58:00 [facility] POCT-GLUCOSE METER 2019-01-27 12:35:00 [facility] POCT-GLUCOSE METER 2019-01-27 09:31:00 [facility] 12-LEAD 2019-01-27 07:06:37 [facility] 2019-01-27 05:55:00 [facility] POCT-GLUCOSE METER 2019-01-27 03:52:00 [facility] CBC (HEMOGRAM ONLY) 2019-01-27 03:47[facility]-27 03:47:00 Dahlia [facility] BASIC METABOLIC PANEL (7) 2019-01-27 03:47:[address] [facility] POCT-GLUCOSE METER 2019-01-26 21:23:00 Michell [facility] PLATELET COUNT 2019-01-26 18:42:00 Saadia Anders [facility] APTT 2019-01-26 18:42:00 Saadia Anders [facility] POCT-GLUCOSE METER 2019-01-26 13:34:00 [facility] POCT-GLUCOSE METER 2019-01-26 08:21:00 [facility] ECG 12-LEAD 2019-01-26 08:12:06 Dahlia [facility] POCT-GLUCOSE METER 2019-01-26 05:42:00 [facility] LIPOPROTEIN (A) 2019-01-26 05:34:00 Dahlia [facility] TROPONIN I 2019-01-26 05:34:00 [facility] CBC (HEMOGRAM ONLY) 2019-01-26 05:34:00 Dahlia [facility] XR CHEST 1 VIEW 2019-01-25 23:56:00 Dahlia [facility] PORTABLE/BEDSIDE Medical Center MAGNESIUM 2019-01-25 23:19:00 Dahlia [facility] COMPREHENSIVE METABOLIC 2019-01-25 23:19:00 [facility] TROPONIN I 2019-01-25 23:19:00 [facility] B-TYPE NATRIURETIC FACTOR 2019-01-25 23:19:00 [facility] PROTHROMBIN TIME/INR 2019-01-25 23:19:00 Dahlia [facility] APTT 2019-01-25 23:19:00 Dahlia, [facility] CBC W/PLT COUNT & AUTO 2019-01-25 23:19:00 Dahlia [facility] S [facility] ECG 12-LEAD 2019-01-25 22:51:27 Dahlia [facility] POCT-GLUCOSE METER 2019-01-25 22:10:00 MichellJuanito gordon [facility] RHYTHM STRIP - SCAN 2019-01-01 11:34:32 Provider, [facility] REPORT OF PROCEDURE - 2018-12-27 07:06:43 Provider, Default [facility] ENDOSCOPY SCAN [facility] CARDIAC CATH REPORT - SCAN 2018-12-27 07:06:36 Provider, [facility] RHYTHM STRIP - SCAN 2018-12-27 07:06:27 Provider, [facility] POCT-GLUCOSE METER 2018-12-25 11:53:[address] [facility] POCT-GLUCOSE METER 2018-12-25 06:53:[address] [facility] CALCIUM, IONIZED 2018-12-25 04:14:00 Nas Minor [facility] BASIC METABOLIC PANEL (7) 2018-12-25 04:13:00 Nas Minor [facility] B-TYPE NATRIURETIC FACTOR 2018-12-25 04:13:00 Nas Minor [facility] (BNP) [facility] MAGNESIUM 2018-12-25 04:13:00 Nas Minor [facility] PHOSPHORUS 2018-12-25 04:13:00 Nas Minor [facility] CBC W/PLT COUNT & AUTO 2018-12-25 04:13:00 Nas Minor [facility] POCT-GLUCOSE METER 2018-12-24 22:48:[address] [facility] POCT-ACT 2018-12-24 22:03:00 Paul [facility] POCT-GLUCOSE METER 2018-12-24 20:12:00 Paul Puneet [facility] POCT-ACT 2018-12-24 17:18:00 [facility] PO[facility] 2018-12-24 16:51:00 Paul [facility] L CATH & PCI 2018-12-24 14:49:00 Spencer Cortes [facility] POCT-GLUCOSE METER 2018-12-24 12:46:00 Paul Puneet [facility] POCT-GLUCOSE METER 2018-12-24 08:25:[address] [facility] APTT 2018-12-24 08:24:00 Paul [facility] COMPREHENSIVE METABOLIC 2018-12-24 01:13:00 Cosmo [facility] APTT 2018-12-24 01:13:00 Delbert Morales [facility] ECG 12-LEAD 2018-12-23 22:36:24 Unknown, Hl7 [facility] POCT-GLUCOSE METER 2018-12-23 17:53:[address] [facility] APTT 2018-12-23 16:08:00 Delbert Morales [facility] POCT-GLUCOSE METER 2018-12-23 12:58:[address] [facility] POCT-GLUCOSE METER 2018-12-23 08:40:00 [facility] CALCIUM, IONIZED 2018-12-23 05:20:00 Cosmo [facility] COMPREHENSIVE METABOLIC 2018-12-23 05:20:00 Cosmo [facility] MAGNESIUM 2018-12-23 05:20:00 Cosmo [facility] PHOSPHORUS 2018-12-23 05:20:00 Cosmo [facility] B-TYPE NATRIURETIC FACTOR 2018-12-23 05:20:00 Abel Wilburn [facility] (BNP) [facility] APTT 2018-12-23 05:20:00 Delbert Morales [facility] TROPONIN I 2018-12-23 05:20:00 Andrew [facility] CBC W/PLT COUNT & AUTO 2018-12-23 05:20:00 Abel Wilburn [facility] ECG 12-LEAD 2018-12-23 04:44:34 Unknown, Hl7 [facility] POCT-GLUCOSE METER 2018-12-22 21:03:00 Puneet Snider [facility] APTT 2018-12-22 19:53:00 Andrew [facility] POCT-GLUCOSE METER 2018-12-22 17:20:[address] [facility] APTT 2018-12-22 12:55:00 Andrew [facility] POCT-GLUCOSE METER 2018-12-22 12:53:[address] [facility] POCT-GLUCOSE METER 2018-12-22 08:25:00 [facility] B-TYPE NATRIURETIC FACTOR 2018-12-22 04:53:00 [facility] CALCIUM, IONIZED 2018-12-22 04:53:00 Nas Minor [facility] IRON, TIBC, % SAT. 2018-12-22 04:53:00 [facility] F[facility] 2018-12-22 04:53:00 [facility]az[facility]ne [facility] MAGNESIUM 2018-12-22 04:52:00 Nas Minor [facility] PHOSPHORUS 2018-12-22 04:52:00 Nas Minor [facility] COMPREHENSIVE METABOLIC 2018-12-22 04:52:00 Cosmo [facility] RETICULOCYTE COUNT 2018-12-22 04:52:00 [facility] HEMOGLOBIN A1C 2018-12-22 04:52:00 Spencer Cortes [facility] TROPONIN I 2018-12-22 04:52:00 Saadia Anders [facility] APTT 2018-12-22 04:52:00 Delbert Morales [facility] CBC W/PLT COUNT & AUTO 2018-12-22 04:52:00 CosmoAbel [facility] POCT-GLUCOSE METER 2018-12-21 21:54:00 Puneet Snider [facility] ECHOCARDIOGRAM REPORT - 2018-12-21 21:21:27 Provider, Default [facility] APTT 2018-12-21 20:04:00 Delbert Morales [facility] US RENAL COMPLETE 2018-12-21 19:58:00 [facility] POCT-GLUCOSE METER 2018-12-21 17:28:00 Puneet Snider [facility] APTT 2018-12-21 13:55:00 Delbert Morales [facility] CREATININE, RANDOM URINE 2018-12-21 13:08:00 [facility] PROTEIN, RANDOM URINE 2018-12-21 13:08:00 [facility] SODIUM, RANDOM URINE 2018-12-21 13:08:00 [facility] URINALYSIS W/ MICROSCOPIC 2018-12-21 13:08:00 Nas Minor [facility] TROPONIN I 2018-12-21 11:48:00 Delbert Morales [facility] 2D ECHO W/ DOPPLER 2018-12-21 10:22:55 Spencer Cortes [facility] (CW/PW/COLOR) [facility] POCT-GLUCOSE METER 2018-12-21 09:59:00 [facility] PT/APTT 2018-12-21 07:39:00 Papito Augustine [facility] APTT 2018-12-21 04:00:00 Delbert Morales [facility] CBC (HEMOGRAM ONLY) 2018-12-21 04:00:00 Delbert Morales [facility] BASIC METABOLIC PANEL (7) 2018-12-21 04:00:00 Delbert Morales [facility] TROPONIN I 2018-12-21 04:00:00 Delbert Morales [facility] TROPONIN I 2018-12-21 00:32:00 Delbert Morales [facility] POCT-GLUCOSE METER 2018-12-21 00:29:00 [facility] XR CHEST 1 VIEW 2018-12-20 20:38:00 [place], [facility] PORTABLE/BEDSIDE [facility] COMPREHENSIVE METABOLIC 2018-12-20 20:33:00 Papito Augustine [facility] TROPONIN I 2018-12-20 20:33:00 [facility] B-TYPE NATRIURETIC FACTOR 2018-12-20 20:33:00 Papito Augustine [facility] (BNP) [facility] PT/APTT 2018-12-20 20:33:00 Wales[facility] MAGNESIUM 2018-12-20 20:33:00 [facility] CBC W/PLT COUNT & AUTO 2018-12-20 20:33:00 Waleska [facility] CRITICAL CARE 2018-12-20 20:19:22 [place] ECG 12-LEAD 2018-12-20 20:04:52 [facility] VASCULAR DIAGRAM -SCAN 2018-11-22 12:20:29 Provider, [facility] PERMANENT LAB REPORT - 2018-11-14 12:32:13 Provider, [facility] RHYTHM STRIP - SCAN 2018-11-14 12:32:10 [address], [facility] REPORT OF PROCEDURE - 2018-11-14 12:32:08 Provider, [facility] ENDOSCOPY [facility] CARDIAC CATH REPORT - SCAN 2018-11-14 12:32:03 Provider, [facility] POCT-GLUCOSE METER 2018-11-13 11:50:00 [facility] POCT-GLUCOSE METER 2018-11-13 09:10:00 [facility] PO[facility]UCOSE [facility] 2018-11-13 06:48:00 [facility] URINALYSIS W/ MICROSCOPIC 2018-11-13 01:25:00 Nas Minor [facility] MAGNESIUM 2018-11-13 01:01:00 Tiffany Fairsa [facility] B-TYPE NATRIURETIC FACTOR 2018-11-13 01:01:00 [facility] PHOSPHORUS 2018-11-13 01:01:00 Nas Minor [facility] CALCIUM, IONIZED 2018-11-13 01:01:00 [facility] COMPREHENSIVE METABOLIC 2018-11-13 01:01:00 Cosmo [facility] CBC W/PLT COUNT & AUTO 2018-11-13 01:01:00 [facility] POCT-ACT 2018-11-13 00:40:00 [facility]ton [facility] [facility] POCT-ACT 2018-11-12 23:27:00 Peyton, [facility] POCT-GLUCOSE METER 2018-11-12 21:31:00 [facility] POCT-ACT 2018-11-12 21:29:00 Peyton [facility] POCT-ACT 2018-11-12 17:50:00 Peyton, [facility] POCT-ACT 2018-11-12 16:49:00 [facility] POCT-ACT 2018-11-12 16:11:00 [facility] L CATH & PCI 2018-11-12 15:58:00 Peyton [facility] C. DIFFICILE GDH TOXIN 2018-11-12 14:14:[address] [facility] NM CARDIAC PET PERFUSION 2018-11-12 12:09:00 Peyton [facility] - REST AND/OR STRESS Medical Cente r TREADMILL 2018-11-12 12:06:27 Unknown, Hl7 [facility] - [facility]ER[facility](NON-NUCLEAR Medical Ce nter TREADMILL) ECG 12-LEAD 2018-11-12 10:01:02 Unknown, Hl7 [facility] APTT 2018-11-12 10:01:00 Peyton [facility] POCT-GLUCOSE METER 2018-11-12 08:34:00 [facility] LIPID PANEL 2018-11-12 04:18:[address] [facility] HEMOGLOBIN A1C 2018-11-12 04:18:[address] [facility] MAGNESIUM 2018-11-12 04:18:[address] [facility] CALCIUM, IONIZED 2018-11-12 04:18:00 Cosmo [facility] COMPREHENSIVE METABOLIC 2018-11-12 04:18:00 Cosmo [facility] PHOSPHORUS 2018-11-12 04:18:00 Cosmo [facility] APTT 2018-11-12 04:18:00 Peyton [facility] CBC W/PLT COUNT & AUTO 2018-11-12 04:18:00 Cosmo [facility] APTT 2018-11-11 22:02:00 Peyton [facility] ECHOCARDIOGRAM REPORT - 2018-11-11 21:20:37 Provider, Default CH I [facility] POCT-GLUCOSE METER 2018-11-11 17:08:00 [facility] APTT 2018-11-11 15:24:00 Peyton [facility] 2D ECHO W/ DOPPLER 2018-11-11 13:14:57 [facility] (CW/PW/COLOR) [facility] POCT-GLUCOSE METER 2018-11-11 12:39:00 [facility] POCT-GLUCOSE METER 2018-11-11 08:53:00 [facility] TROPONIN I 2018-11-11 08:24:00 Dariana Beverly [facility] XR CHEST 1 VIEW 2018-11-11 08:05:00 Mc [facility] - PORTABLE/BEDSIDE [facility] BASIC METABOLIC PANEL (7) 2018-11-11 00:39:00 [facility] HEPATIC FUNCTION PANEL 2018-11-11 00:39:00 [facility] MAGNESIUM 2018-11-11 00:39:00 Mc [facility] TSH/FREE T4 IF INDICATED 2018-11-11 00:39:00 Delbert Bentley [facility] TROPONIN I 2018-11-11 00:39:00 Mc [facility] B-TYPE NATRIURETIC FACTOR 2018-11-11 00:39:00 Delbert Bentley [facility] (BNP) [facility] PT/APTT 2018-11-11 00:39:00 Peyton, [facility] CBC W/PLT COUNT & AUTO 2018-11-11 00:39:00 [facility] DIFFERENTIAL [facility] ECG 12-LEAD 2018-11-11 00:12:37 Unknown, Hl7 [facility] VASCULAR DIAGRAM -SCAN 2018-08-24 12:15:50 Provider, [facility] RHYTHM STRIP - SCAN 2018-08-22 10:41:39 Provider, [facility] VASCULAR DIAGRAM -SCAN 2018-08-21 11:01:14 [facility] CARDIAC CATH REPORT - SCAN 2018-08-21 11:00:42 Provider, [facility] RHYTHM STRIP - SCAN 2018-08-21 11:00:40 Provider, [facility] RHYTHM STRIP - SCAN 2018-08-21 11:00:38 Provider, [facility] CARDIAC CATH REPORT - SCAN 2018-08-21 11:00:36 Provider, [facility] POCT-GLUCOSE METER 2018-08-20 12:04:00 [facility] W/PLT COUNT & AUTO 2018-08-20 09:27:[address] [facility] POCT-GLUCOSE METER 2018-08-20 07:44:00 [facility] BASIC METABOLIC PANEL (7) 2018-08-20 03:38:00 Selin Finney [facility] POCT-GLUCOSE METER 2018-08-19 20:49:00 [facility] PO[facility]-GLUCOSE METER 2018-08-19 18:22:00 [facility] POCT-GLUCOSE METER 2018-08-19 12:43:00 [facility] POCT-GLUCOSE METER 2018-08-19 08:22:00 [facility] POCT-GLUCOSE METER 2018-08-19 04:23:00 [facility] BASIC METABOLIC PANEL (7) 2018-08-19 04:12:00 Selin Finney [facility] POCT-GLUCOSE METER 2018-08-18 21:54:00 [facility] POCT-GLUCOSE METER 2018-08-18 18:31:00 [facility] POCT-GLUCOSE METER 2018-08-18 13:11:00 [facility] POCT-GLUCOSE METER 2018-08-18 08:10:00 [facility] POCT-GLUCOSE METER 2018-08-18 07:19:00 [facility] BASIC METABOLIC PANEL (7) 2018-08-18 05:03:00 Selin Finney [facility] POCT-GLUCOSE METER 2018-08-18 04:02:00 [facility] POCT-GLUCOSE METER 2018-08-18 03:47:00 [facility] POCT-GLUCOSE METER 2018-08-18 03:39:00 [facility] POCT-GLUCOSE METER 2018-08-17 22:17:00 [facility] POCT-GLUCOSE METER 2018-08-17 19:28:00 [facility] POCT-GLUCOSE METER 2018-08-17 13:08:00 [facility] POCT-GLUCOSE METER 2018-08-17 12:16:00 [facility] CBC W/PLT COUNT & AUTO 2018-08-17 10:25:00 LeninDeo gonzales [facility] POCT-GLUCOSE METER 2018-08-17 08:06:00 [facility] BASIC METABOLIC PANEL (7) 2018-08-17 03:55:00 Selin Finney [facility] POCT-GLUCOSE METER 2018-08-16 21:26:00 Pined[facility] POCT-GLUCOSE METER 2018-08-16 17:58:00 [facility] POCT-GLUCOSE METER 2018-08-16 12:46:00 [facility] POCT-GLUCOSE METER 2018-08-16 08:27:00 [facility] BASIC METABOLIC PANEL (7) 2018-08-16 04:01:00 Selin Finney [facility] POCT-GLUCOSE METER 2018-08-16 03:02:[address] [facility] PELVIS WITHOUT IV 2018-08-16 02:38:00 [facility] ECHOCARD[facility] REPORT - 2018-08-15 21:12:49 Provider, Default [facility] POCT-GLUCOSE METER 2018-08-15 20:55:00 [facility] POCT-GLUCOSE METER 2018-08-15 18:11:00 [facility] LIMITED 2D ECHOCARDIOGRAM 2018-08-15 15:53:31 Spencer Cortes [facility] POCT-GLUCOSE METER 2018-08-15 13:45:00 [facility] POCT-GLUCOSE METER 2018-08-15 08:00:00 [facility] BASIC METABOLIC PANEL (7) 2018-08-15 04:59:00 Selin Finney [facility] POCT-GLUCOSE METER 2018-08-14 22:50:00 [facility] POCT-GLUCOSE METER 2018-08-14 17:47:00 [facility] POCT-GLUCOSE METER 2018-08-14 12:22:00 [facility] URINE CULTURE 2018-08-14 10:53:00 [facility] W/ REFLEX URINE 2018-08-14 10:53:[address] [facility] RESPIRATORY PANEL [facility] 2018-08-14 10:18:00 [facility] 2018-08-14 09:13:00 [facility] POCT-GLUCOSE METER 2018-08-14 08:16:00 [facility] MAGNESIUM 2018-08-14 05:57:00 [facility] CALCIUM, IONIZED 2018-08-14 05:57:00 Cosmo [facility] COMPREHENSIVE METABOLIC 2018-08-14 05:57:00 [facility]OS[facility] 2018-08-14 05:57:00 Cosmo [facility] CBC W/PLT COUNT & AUTO 2018-08-14 05:57:00 Cosmo [facility] (CELLAVISION MANUAL DIFF) 2018-08-14 05:57:00 Abel Wilburn [facility] POCT-GLUCOSE METER 2018-08-13 22:46:00 [facility] POCT-GLUCOSE METER 2018-08-13 17:40:00 [facility] POCT-GLUCOSE METER 2018-08-13 12:16:00 [facility] POCT-GLUCOSE METER 2018-08-13 08:33:00 [facility] MAGNESIUM 2018-08-13 02:19:00 Selin Finney [facility] CALCIUM, IONIZED 2018-08-13 02:19:00 [facility] COMPREHENSIVE METABOLIC 2018-08-13 02:19:00 Cosmo [facility] PHOSPHORUS 2018-08-13 02:19:00 Cosmo [facility] CBC W/PLT COUNT & AUTO 2018-08-13 02:19:00 [facility] POCT-GLUCOSE METER 2018-08-13 02:15:00 [facility] POCT-GLUCOSE METER 2018-08-12 21:02:00 [facility] POCT-GLUCOSE METER 2018-08-12 17:39:00 [facility] POCT-GLUCOSE METER 2018-08-12 12:01:00 [facility] POCT-GLUCOSE METER 2018-08-12 07:31:00 [facility] POCT-GLUCOSE METER 2018-08-12 04:33:00 [facility] XR CHEST 1 VIEW 2018-08-12 04:12:00 Christian Lag[facility]re [facility] - PORTABLE/BEDSIDE [facility] MAGNESIUM 2018-08-12 03:15:00 [facility] 2018-08-12 03:15:00 [facility] COMPREHENSIVE METABOLIC 2018-08-12 03:15:00 [facility] 2018-08-12 03:15:00 [facility] CBC W/PLT COUNT & AUTO 2018-08-12 03:15:00 [facility] POCT-GLUCOSE METER 2018-08-12 00:00:00 [facility] POCT-GLUCOSE METER 2018-08-11 21:31:00 [facility] POCT-GLUCOSE METER 2018-08-11 17:47:00 [facility] BASIC METABOLIC PANEL (7) 2018-08-11 15:47:00 Kody Saenz [facility] MAGNESIUM 2018-08-11 15:47:00 [facility] PO[facility]UCOSE METER 2018-08-11 11:41:00 [facility] POCT-GLUCOSE METER 2018-08-11 07:39:00 [facility] BASIC METABOLIC PANEL (7) 2018-08-11 03:40:00 Kody Saenz [facility] MAGNESIUM 2018-08-11 03:40:00 Kody Saenz [facility] CBC W/PLT COUNT & AUTO 2018-08-11 03:40:00 Spencer Cortes [facility] XR CHEST 1 VIEW 2018-08-11 03:26:00 Christian Laguerre [facility] - PORTABLE/BEDSIDE [facility] POCT-GLUCOSE METER 2018-08-10 23:25:00 [facility] POCT-GLUCOSE METER 2018-08-10 17:34:00 [facility] BASIC METABOLIC PANEL (7) 2018-08-10 15:35:00 Kody Saenz [facility] MAGNESIUM 2018-08-10 15:35:00 Kody Saenz [facility] XR CHEST 1 VIEW 2018-08-10 14:50:00 Radha Ferraro [facility] - PORTABLE/BEDSIDE [facility] BLOOD GAS, ARTERIAL 2018-08-10 14:27:00 Zaheer [facility] LACTIC ACID, ARTERIAL 2018-08-10 14:26:00 Zaheer [facility] POCT-GLUCOSE METER 2018-08-10 11:42:00 [facility] POCT-GLUCOSE METER 2018-08-10 07:42:00 [facility] POCT-GLUCOSE METER 2018-08-10 06:36:00 [facility] POCT-GLUCOSE METER 2018-08-10 05:42:00 [facility] XR CHEST 1 VIEW 2018-08-10 05:07:00 Christian Lag[facility]re [facility] - PORTABLE/BEDSIDE [facility] MAGNESIUM 2018-08-10 04:23:00 Kody Saenz [facility] BASIC METABOLIC PANEL (7) 2018-08-10 04:23:00 Kody Saenz [facility] CBC W/PLT COUNT & AUTO 2018-08-10 04:23:00 Delbert Aguirre [facility] (CELLAVISION MANUAL DIFF) 2018-08-10 04:23:00 Delbert Aguirre [facility] POCT-GLUCOSE METER 2018-08-09 19:59:00 [facility] POCT-GLUCOSE METER 2018-08-09 17:27:00 [facility] POCT-GLUCOSE METER 2018-08-09 13:37:00 [facility] POCT-GLUCOSE METER 2018-08-09 07:55:00 [facility] CBC W/PLT COUNT & AUTO 2018-08-09 05:00:00 Osmar Cortessol Дмитрий YOLY Дмитрий mckeon [facility] BASIC METABOLIC PANEL (7) 2018-08-09 04:59:00 Kody Saenz [facility] XR CHEST 1 VIEW 2018-08-09 04:35:00 Christian Laguerre [facility] PORTABLE/BEDSIDE [facility] POCT-GLUCOSE METER 2018-08-08 21:53:00 [facility] POCT-GLUCOSE METER 2018-08-08 18:31:00 [facility] CHEST 1 VIEW 2018-08-08 15:35:00 Jasmine [facility] - PORTABLE/BEDSIDE [facility] XR CHEST 1 VIEW 2018-08-08 13:26:00 Jasmine [facility] PORTABLE/BEDSIDE [facility] POCT-GLUCOSE METER 2018-08-08 12:15:00 [facility] POCT-GLUCOSE METER 2018-08-08 07:47:00 [facility] XR CHEST 1 VIEW 2018-08-08 04:49:00 Christian Laguerre [facility] - PORTABLE/BEDSIDE [facility] MAGNESIUM 2018-08-08 03:53:00 [facility]ton [facility] Д[facility]ий [facility] BASIC METABOLIC PANEL (7) 2018-08-08 03:53:00 [facility] CBC W/PLT COUNT & AUTO 2018-08-08 03:53:00 Peyton Osmarsol Дмитрий YOLY Дмитрий [facility] POCT-GLUCOSE METER 2018-08-07 22:10:00 [facility] BASIC METABOLIC PANEL (7) 2018-08-07 21:35:00 Abel Wilburn [facility] MAGNESIUM 2018-08-07 21:35:00 Abel Wilburn [facility] POCT-ACT 2018-08-07 18:55[facility] 2018-08-07 18:20:00 Pineda [facility] POCT-ACT 2018-08-07 17:45:00 [facility] POCT-ACT 2018-08-07 17:23:00 [facility] / CORONARY 2018-08-07 13:32:[address] [facility] ANGIOS / PCI [facility] POCT-GLUCOSE METER 2018-08-07 12:21:00 [facility] POCT-GLUCOSE METER 2018-08-07 07:27:00 [facility]ST 1 VIEW 2018-08-07 05:41:00 [facility] MAGNESIUM 2018-08-07 05:01:00 Shade [facility] CALCIUM, IONIZED 2018-08-07 05:01:00 [facility] COMPREHENSIVE METABOLIC 2018-08-07 05:01:00 [facility] PHOSPHORUS 2018-08-07 05:01:00 [facility] CBC W/PLT COUNT & AUTO 2018-08-07 05:01:00 [facility] ECHOCARDIOGRAM REPORT - 2018-08-06 21:21:48 Provider, Default CH I [facility] POCT-GLUCOSE METER 2018-08-06 21:19:00 [facility] POCT-GLUCOSE METER 2018-08-06 17:05:00 [facility] POCT-GLUCOSE METER 2018-08-06 12:44:00 [facility] 2D ECHO W/ DOPPLER 2018-08-06 10:34:18 Peyton Osmarsol [facility] (CW/PW/COLOR) [facility] POCT-GLUCOSE METER 2018-08-06 07:26:00 [facility] XR CHEST 1 VIEW 2018-08-06 04:12:00 Shade [facility] PORTABLE/BEDSIDE [facility] MAGNESIUM 2018-08-06 04:03:00 Christian Laguerre [facility] BASIC METABOLIC PANEL (7) 2018-08-06 04:03:00 Spencer Cortes PITA [facility] APTT 2018-08-06 04:03:00 Jasmine [facility] CBC W/PLT COUNT & AUTO 2018-08-06 04:03:00 Radha Ferraro [facility] DIFFERENTIAL [facility] POCT-GLUCOSE METER 2018-08-05 21:44:00 [facility] POCT-GLUCOSE METER 2018-08-05 17:08:00 [facility] POCT-GLUCOSE METER 2018-08-05 11:17:00 [facility] POCT-GLUCOSE METER 2018-08-05 07:15:00 [facility] XR CHEST 1 VIEW 2018-08-05 05:32:00 Christian [facility] - PORTABLE/BEDSIDE [facility] MAGNESIUM 2018-08-05 05:29:00 Jasmine [facility] BASIC METABOLIC PANEL (7) 2018-08-05 05:29:00 Delbert Aguirre [facility] CBC W/PLT COUNT & AUTO 2018-08-05 05:29:[address] [facility] POCT-GLUCOSE METER 2018-08-04 22:02:00 [facility] POCT-GLUCOSE METER 2018-08-04 18:17:00 [facility] URINE CULTURE 2018-08-04 14:05:00 [facility]INAL[facility] W/ REFLEX URINE 2018-08-04 14:05:00 Christian Laguerre [facility] POCT-GLUCOSE METER 2018-08-04 13:01:00 [facility] C. DIFFICILE GDH TOXIN 2018-08-04 09:51:00 [facility] OCCULT [facility]LOOD, STOOL 2018-08-04 09:51:00 More Burciaga V. [facility] POCT-GLUCOSE METER 2018-08-04 07:59:00 Deo Sung [facility] MAGNESIUM 2018-08-04 05:44:00 Radha Ferraro [facility] CALCIUM, IONIZED 2018-08-04 05:44:00 Cosmo [facility] COMPREHENSIVE METABOLIC 2018-08-04 05:44:00 Cosmo [facility] PHOSPHORUS 2018-08-04 05:44:00 Cosmo [facility] TROPONIN I 2018-08-04 05:44:00 Spencer Cortes [facility] CBC W/PLT COUNT & AUTO 2018-08-04 05:44:00 Radha Ferraro Дмитрий [facility] XR CHEST 1 VIEW 2018-08-04 03:58:00 Christian Laguerre [facility]/BEDSIDE [facility] POCT-GLUCOSE METER 2018-08-03 22:02:00 Deo Sung [facility] ECHOCARDIOGRAM REPORT - 2018-08-03 21:22:04 Provider, Torey LEMA I [facility] POCT-GLUCOSE METER 2018-08-03 18:00:00 Deo Sung [facility] POCT-GLUCOSE METER 2018-08-03 11:54:00 [facility]ton [facility] Choe [facility] LIMITED 2D ECHOCARDIOGRAM 2018-08-03 11:17:28 Spencer Cortes [facility] TROPONIN I 2018-08-03 09:24:00 Christian Laguerre [facility] CREATINE KINASE (CK) 2018-08-03 09:24:00 Kody Saenz [facility] ECG 12-LEAD 2018-08-03 08:00:15 Unknown, Hl7 [facility] XR CHEST 1 VIEW 2018-08-03 07:24:00 Christian Laguerre [facility] PORTABLE/BEDSIDE [facility] MAGNESIUM 2018-08-03 01:52:00 Jasmine [facility] COMPREHENSIVE METABOLIC 2018-08-03 01:52:00 [facility] PHOSPHORUS 2018-08-03 01:52:00 [facility] RETICULOCYTE COUNT 2018-08-03 01:52:00 [facility] CBC W/PLT COUNT & AUTO 2018-08-03 01:52:00 Jasmine [facility] DIFFERENTIAL [facility] VITAMIN B12 AND FOLATE 2018-08-03 01:51:00 [facility] CALCIUM, IONIZED 2018-08-03 01:51:00 [facility] FERRITIN 2018-08-03 01:51:00 [facility] IRON, TIBC, % SAT. 2018-08-03 01:51:00 [facility] (WITHOUT FERRITIN) [facility] POCT-GLUCOSE METER 2018-08-03 01:10:00 [facility] 2018-08-02 20:37:00 [facility]SE [facility]ER 2018-08-02 16:36:00 [facility] 2018-08-02 12:01:00 J[facility] POCT-GLUCOSE METER 2018-08-02 12:[facility]SE [facility] 2018-08-02 11:06:[facility] POCT-GLUCOSE METER 2018-08-02 10:08:00 [facility] POCT-GLUCOSE METER 2018-08-02 09:11:00 [facility] 2018-08-02 08:02:00 Jasmine [facility] POCT-GLUCOSE METER 2018-08-02 08:02:[address] [facility] POCT-GLUCOSE METER 2018-08-02 07:06:[address] [facility] ECG 12-LEAD 2018-08-02 06:46:26 Unknown, Hl7 [facility] US RENAL COMPLETE 2018-08-02 05:48:00 Nas Minor [facility] APTT 2018-08-02 04:11:00 [facility]asmine [facility] MAGNESIUM 2018-08-02 03:52:00 [facility] B-TYPE NATRIURETIC FACTOR 2018-08-02 03:52:00 Nas Minor [facility] (BNP) [facility] URIC ACID 2018-08-02 03:52:00 Nas Minor [facility] CALCIUM, IONIZED 2018-08-02 03:52:00 [facility] COMPREHENSIVE METABOLIC 2018-08-02 03:52:00 [facility] PHOSPHORUS 2018-08-02 03:52:00 [facility] BLOOD GAS, ARTERIAL 2018-08-02 03:52:00 Reva Tay [facility] LACTIC ACID, ARTERIAL 2018-08-02 03:52:[address] [facility] SODIUM NA-STAT LAB 2018-08-02 03:52:00 Jerman Ribeiro [facility] POTASSIUM-STAT LAB 2018-08-02 03:52:00 Jerman Ribeiro [facility] GLUCOSE-STAT LAB 2018-08-02 03:52:[address] [facility] HGB/HCT (H&H) - STAT LAB 2018-08-02 03:52:00 Jerman Ribeiro I [facility] CBC W/PLT COUNT & AUTO 2018-08-02 03:52:00 Radha Ferraro Дмитрий [facility] XR CHEST 1 VIEW 2018-08-02 03:45:00 Shekhar Gould [facility] PORTABLE/BEDSIDE [facility] LACTIC ACID, ARTERIAL 2018-08-01 23:47:[address] [facility] BLOOD GAS, ARTERIAL 2018-08-01 23:47:00 Reva Tay [facility] SODIUM NA-STAT LAB 2018-08-01 23:47:00 Reva Tay [facility] POTASSIUM-STAT LAB 2018-08-01 23:47:00 Reva Tay [facility] GLUCOSE-STAT LAB 2018-08-01 23:47:00 Reva Tay [facility] HGB/HCT (H&H) - STAT LAB 2018-08-01 23:47:00 Shaka Tay [facility] PERIPHERAL VASCULAR REPORT 2018-08-01 21:23:23 Provider, Default [facility] 2018-08-01 21:22:00 Radha Ferraro [facility] ECHOCARDIOGRAM REPORT - 2018-08-01 21:21:09 Provider, Default I [facility] ELECTROLYTE PANEL 2018-08-01 19:07:[address] [facility] CBC (HEMOGRAM ONLY) 2018-08-01 19:07:00 [facility] COMPREHENSIVE METABOLIC 2018-08-01 19:07:00 [facility] LACTIC ACID, ARTERIAL 2018-08-01 19:07:00 [facility] OXYGEN SATURATION, 2018-08-01 19:07:00 [facility] PT/APTT 2018-08-01 19:07:00 [facility] FIB[facility] 2018-08-01 19:07:00 [facility] BLOOD GAS, ARTERIAL 2018-08-01 19:07:00 QuintinJerman hoskins [facility] SODIUM NA-STAT LAB 2018-08-01 19:07:00 Jerman Ribeiro [facility] POTASSIUM-STAT LAB 2018-08-01 19:07:00 Jerman Ribeiro [facility] GLUCOSE-STAT LAB 2018-08-01 19:07:[address] [facility] HGB/HCT (H&H) - STAT LAB 2018-08-01 19:07:00 QuintinJerman hoskins [facility] CALCIUM, IONIZED 2018-08-01 19:07:[address] [facility] HEMOGLOBIN AND HEMATOCRIT 2018-08-01 16:16:02 Spencer Cortes [facility] POCT-ACT 2018-08-01 16:01:00 [facility] PO[facility]-ACT 2018-08-01 14:51:00 Lenin [facility] CATH & PCI 2018-08-01 14:50:00 Spencer Cortes [facility] POCT-GLUCOSE METER 2018-08-01 12:15:00 Lenin [facility] POCT-GLUCOSE METER 2018-08-01 08:10:00 Tina [facility] PLATELET AGGREGATION: 2018-08-01 08:04:00 Kash Love [facility] POCT-GLUCOSE METER 2018-08-01 06:34:00 Tina [facility] TROPONIN I 2018-08-01 05:25:00 Radha Ferraro [facility] BASIC METABOLIC PANEL (7) 2018-08-01 05:25:00 Radha Ferraro CH, I [facility] MAGNESIUM 2018-08-01 05:25:00 J[facility] HEPATIC FUNCTION PANEL 2018-08-01 05:25:00 Jerman Ribeiro [facility] XR CHEST 1 VIEW 2018-08-01 04:24:00 Bola Santiago [facility] APTT 2018-08-01 04:18:00 J[facility] PROTHROMBIN TIME/INR 2018-08-01 04:18:00 Bola Santiago [facility] THROMBIN TIME 2018-08-01 04:18:00 Bola Santiago [facility] CBC W/PLT COUNT & AUTO 2018-08-01 04:18:00 Bola Santiago [facility] 2D ECHO W/ DOPPLER 2018-08-01 02:05:13 [facility] (CW/PW/COLOR) [facility] CAROTID DOPPLER BILATERAL 2018-08-01 01:11:00 [facility] XR CHEST 1 VIEW 2018-07-31 23:56:00 [facility] ECG 12-LEAD 2018-07-31 22:17:50 [facility] 2018-07-31 20:40:00 Jasmine [facility] BASIC METABOLIC PANEL (7) 2018-07-31 20:12:00 Jasmine [facility] HEPATIC FUNCTION PANEL 2018-07-31 20:12:00 Jasmine [facility] TSH/FREE T4 IF INDICATED 2018-07-31 20:12:00 J[facility] TROPONIN I 2018-07-31 20:12:00 [facility] B-TYPE NATRIURETIC FACTOR 2018-07-31 20:12:00 Jasmine [facility] (BNP) [facility] PROTHROMBIN TIME/INR 2018-07-31 20:12:00 J[facility] APTT 2018-07-31 20:12:00 [facility] CBC W/PLT COUNT & AUTO 2018-07-31 20:12:00 Radha Ferraro [facility] ECG 12-LEAD 2018-07-31 19:38:12 Radha Ferraro [facility] Encounters Start End Encounter Admission Attending Care Care Encounter Source Date/Time Date/Time Type Type Clinicians Facility Department ID 2019-07-10 2019-07-10 [facility] [id number] 14:25:00 14:25:00 t [facility] Medicine l Medicine Outpati ent Clinics 2019-06-28 2019-06-28 [facility] [id number] 10:34:00 10:34:00 t [facility] Medicine l Medicine Outpati ent Clinics 2019-06-17 2019-06-17 [facility] [id number] 15:21:00 15:21:00 t [facility] Medicine l Medicine Outpati ent Clinics 2019 2019 [facility] [id number] 13:30:00 13:30:00 t [facility] Medicine l Medicine Outpati ent Clinics 2019-05-31 2019-05-31 [facility] [id number] 16:05:00 16:05:00 t [facility] Medicine l Medicine Outpati ent Clinics 2019-05-30 2019-05-30 [facility] [id number] 11:58:00 11:58:00 t [facility] Medicine l Medicine Outpati ent Clinics 2019-05-17 2019-05-17 [facility] [id number] 14:51:00 14:51:00 t [facility] Medicine l Medicine Outpati ent Clinics 2019-04-18 2019-04-18 [facility] [id number] 08:45:00 08:45:00 t [facility] l Medicine Outpati ent Clinics 2019-04-11 2019-04-11 [facility] [id number] 08:26:00 08:26:[address] [facility] Medicine l Medicine Outpati ent Clinics 2019-03-26 2019-03-26 [facility] [id number] 10:15:00 10:15:[address] [facility] - Drive [facility] Medicine l Medicine Outpati ent Clinics 2019-03-21 2019-03-21 [facility] [id number] 09:50:00 09:50:[address] [facility] - Drive [facility] Medicine l Medicine Outpati ent Clinics 2019-03-18 2019-03-18 [facility] [id number] 13:29:00 13:29:[address] [facility] - Drive [facility] Medicine Outpati ent Clinics 2019-02-11 2019-02-11 [facility] [id number] 13:30:00 13:30:[address] [facility] - Drive [facility] Medicine Outpati ent Clinics 2019-01-23 2019-01-23 [facility] [id number] 10:15:00 10:15:[address] [facility] - Drive [facility] Medicine Outpati ent Clinics 2019-01-21 2019-01-21 [facility] [id number] 13:25:00 13:25:[address] [facility] - Drive [facility] Medicine l Medicine Outpati ent Clinics 2018-12-24 2018-12-24 [facility] [id number] 14:34:00 14:34:[address] [facility] - Drive [facility] Medicine Medicine Outpati ent Clinics 2018-12-21 2018-12-21 [facility] [id number] 14:44:00 14:44:[address] [facility] - Drive [facility] Medicine Outpati ent Clinics 2018-12-19 2018-12-19 [facility] [id number] 17:03:00 17:03:[address] [facility] - Drive [facility] Medicine Outpati ent Clinics 2018-12-03 2018-12-03 [facility] [id number] 14:00:00 14:00:00 [place] [employer] [facility] - Drive [facility] Medicine Medicine Outpati ent Clinics 2018-11-26 2018-11-26 [facility] [id number] 13:30:00 13:30:00 [place] [employer] [place] [facility] - Drive [facility] l Medicine Outpati ent Clinics 2018-10-16 2018-10-16 [facility] [id number] 11:15:00 11:15:00 t Specialty/U Amalia kes - Specialty rology [facility]Urology Clinic l Clinic Outpati ent Clinics 2018-10-08 2018-10-08 [facility] [id number] 15[facility]33:00 15:33:00 [place] [employer] - Drive [facility] l Medicine Outpati ent Clinics 2018-10-08 2018-10-08 [facility] [id number] 14:00:00 14:00:00 [place] [employer] - Drive [facility] Medicine l Medicine Outpati ent Clinics 2018-10-08 2018-10-08 [facility] [id number] 14:00:00 14:00:00 t Specialty/U Amalia kes - Specialty rology Memori a /Urology Clinic l Clinic Outpati ent Clinics 2018-09-17 2018-09-17 [facility] [id number] 10:32:00 10:32:00 t [place] [employer] - [facility] Medicine l Medicine Outpati ent Clinics 2018-09-06 2018-09-06 [facility] [id number] 13:30:00 13:30:00 t [place] [employer] - [facility] Medicine Medicine Outpati ent Clinics 2018-09-04 2018-09-04 [facility] [id number] 14:45:00 14:45:00 [place] [employer] - Drive [facility] Medicine Outpati ent Clinics 2018-08-07 2018-08-07 [facility] [id number] 08:25:00 08:25:00 [place] [employer] Valentin Uzhun [facility] Medicine Outpati ent Clinics 2018-06-26 2018-06-26 [facility] [id number] 10:41:00 10:41:00 [place] [employer] Valentin Uzhun [facility] Medicine Outpati ent Clinics 2018-06-12 2018-06-12 [facility] [id number] 10:30:00 10:30:00 t [facility] Medicine Outpati ent Clinics 2018 2018 [facility] [id number] 11:54:00 11:54:00 t [facility] Medicine Outpati ent Clinics 2018-03-14 2018-03-14 [facility] [id number] 15:00:00 15:00:00 t [facility] Medicine Outpati ent Clinics 2018-02-21 2018-02-21 [facility] [id number] 13:15:00 13:15:00 t Specialty/U Amalia kes - Specialty rology Memori a /Urology Clinic l Clinic Outpati ent Clinics 2018-02-21 2018-02-21 [facility] [id number] 09:57:00 09:57:00 t [facility] Medicine Outpati ent Clinics 2018-02-21 2018-02-21 [facility] [id number] 09:30:00 09:30:00 t Specialty/U Amalia kes - Specialty rology Memori a /Urology Clinic l Clinic Outpati ent Clinics 2018-02-21 2018-02-21 [facility] [id number] 08:32:00 08:32:00 t [facility] Medicine Outpati ent Clinics 2017-12-06 2017-12-06 [facility] [id number] 14:30:00 14:30:00 [facility] ent Clinics 2017-11-29 2017-11-29 [facility] [id number] 09:30:00 09:30:00 t [facility] ent Clinics 2017-11-01 2017-11-01 [facility] [id number] 15:00:00 15:00:00 t [facility] ent Clinics 2017-11-01 2017-11-01 [facility] [id number] 14:19:00 14:19:[address] [facility] - Drive [facility] 2017-11-01 2017-11-01 Outpatient Annalisa Fang [id number] [facility] 14:02:00 14:02:00 Alex Johnson [facility] - DO [facility] 2017-09-06 2017-09-06 [facility] [id number] 10:30:00 10:30:[address] [facility] - Drive [facility] Outpati ent Clinics 2017-07-12 2017-07-12 [facility] [id number] 11:48:00 11:48:[address] [facility] - Drive [facility] Outpati ent Clinics 2017-07-03 2017-07-03 [facility] [id number] 10:15:00 10:15:[address] [facility] - Drive [facility] Outpati ent Clinics 2017-06-08 2017-06-08 [facility] [id number] 12:16:00 12:16:[address] [place] [facility] - Drive [facility] Outpati ent Clinics 2017-05-16 2017-05-16 [facility] [id number] 11:00:00 11:00:00 t Specialty/U Amalia kes - Specialty rology [facility] 2017-05-08 2017-05-08 [facility] [id number] 10:45:00 10:45:00 [facility] [employer] [place] [facility] Medicine Outpati ent Clinics Results Test Description Test Time Test Comments Results Result Comments Source Platelet Aggregation: Drug Effect 2019-05-29 16:27:00 Test Item Value Reference Range Interpretation Comme nts Arachadonic Acid (test code = 13 % 63-89 L 5993-1) Interpretation (test code = [place] [address]-7) arachidonic acid suggests aspirin-like effect.Decreased aggregation with ADP which indicates platelet dysfunction that may be due to medication effect, uremia, or other platelet function disorders. Clinical correlation is required. Pathologist: (test code = 2621) Talia Villarreal MD (electronic signature) Platelets (test code = 2656) 184 150- 450 K/CU MM ADP (test code = 14294-8) 11 % 62-100 L Platelet Rich Plasma (test code = 243 200- 300 k/cu mm 2134) KAREN (test code = KAREN) Platelet function studies by aggregation methodology on samples with platelet count <75,000/CU MM are unreliable; platelet function assessment should not be based on a single test.Hunter Skin Diver ID - [id number] Lab Interpretation (test code = Abnormal 51194-3) [facility] DRUG [id number] 16:27:00 Test Item Value Reference Range Interpretation Comments ARACHADONIC ACID 13 % 63-89 L RESULT(BEAKER) (test code = 2138) PLATELET AGG DRUG Decreased response to INTERPRETATION (BEAKER) arachidonic acid (test code = 2408) suggests aspirin-like effect. PLATELET AGG DRUG Decreased aggregation INTERPRETATION (BEAKER) with ADP which (test code = 428993) indicates platelet dysfunction that may be due to medication effect, uremia, or other platelet function disorders. Clinical correlation is required. [id number] Talia Villarreal, (BEAKER) (test code = (electronic 2621) signature) PLATELET COUNT AGG 184 K/CU MM 150-450 (BEAKER) (test code = 2656) PLATELET RICH 243 k/cu mm 200-300 PLASMA(BEAKER) (test code = 2134) Platelet function studies by aggregation methodology on samples with platelet count <75,000/CU MMare unreliable; platelet function assessment should not be based on a single test.Hunter Skin Diver ID - [id number]-Glucose [id number] 13:37:00 Test Item Value Reference Range Interpretation Comments POC-Glucose Meter (test 298 mg/dL 70-110 H : No tified RN/MD: code = 1538) TESTED AT [facility] [address] [facility] [place], [address]: Hunter Skin Diver/Techni rebeca ID = [id number] for LIZ WATSON Lab Interpretation (test Abnormal code = 78105-6) [facility] [id number] 13:37:00 Test Item Value Reference Range Interpretation Comments POC-GLUCOSE METER 298 mg/dL 70-110 H : Notified RN/MD: (CRISTY) (test code = TESTED AT [facility] 67[address] 1538) [facility], [address]: Hunter Skin Diver/Techni rebeca ID = [id number] for LIZ PRIEST Venous doppler legs [id number] 08:20:35Ejection FractionSLEH ECHO HEARTLAB MKCKESSON CPACSRight Impression1. There is no deep venous obstruction in the profunda femoral, femoral,popliteal, posterior tibial or peroneal veins.2. The common femoral vein was not visualized due to a bandage.3. The great saphenous vein was not visualized due to a bandage.Left Impression1. There is no deep venous obstruction in the common femoral, profundafemoral, femoral, popliteal, posterior tibial or peroneal veins.2. There is no superficial venous obstruction in the great saphenous vein. Conclusions Summary Venous duplex imaging and compression of the bilateral lower extremities were performed. The veins were adequately visualized except as stated above. The bilateral venous systems were patent and compressible with no evidence of thrombus where visual ized. The venous Doppler waveforms were phasic with respiration . Signature Velocities are measured in cm/s ; Diameters are measured in cm Interface, External Ris In - 05/29/20198:20 AM CDTPV LAB - Lower Extremities DVT Study Demographics Patient Name HENRIQUE ARECHIGA Date of Study 05/28/2019 RANDEE Age 78 Visit Number [id number] Gender Female Accession Number [id number] Date of 1940 Referring Peyton Choe Room Number 6218 Physician Trouble Operator Sly Shelby T Interpreting Brandi Camara, Physician ProcedureType of Study: Veins: Lower Extremities DVT Study, VENOUS DOPPLER LEG, BILATERAL. Indications for Study:Dyspnea and Leg pain .Patient Stat us:Routine.Study Location:Portable.Technical Quality:Adequate visualization.Risk FactorsHistory of Di sease+ + + +!Diagnosis !Date !Comments !+ + + +!History/Risk Factors:! !CKD, HLD, HTN, CAD, IABP, Morbid Obesity !+ + + +!Hi story/Risk Factors:!03/22/2019!S/P heart cath !+ + + +!Other ! !S/P Heart Cath !+ + + +Imp ressionsRight Impression1. There is no deep venous obstruction in the profunda femoral, femoral,popliteal, posterior tibial or peroneal veins.2. The common femoral vein was not visualized due to a bandage.3. The great saphenous vein was not visualized due to a bandage.Left Impression1. There is no deep venous obstruction in the common femoral, profundafemoral, femoral, popliteal, posterior tibial or peroneal veins.2. There is no superficial venous obstruction in the great saphenous vein. Conclusions Summary Venous duplex imaging and compression of the bilateral lower extremities were performed. The veins were ad equately visualized except as stated above. The bilateral venous systems were patent and compressible with no evidence of thrombus where visualized. The venous Doppler waveforms were phasic with respiration . Signature Velocities are measured in cm/s ; Diameters are measured in [facility] POCT-GLUCOSE [id number] 07:54:00 Test Item Value Reference Range Interpretation Comments POC-GLUCOSE METER 270 mg/dL 70-110 H : TESTED A T [facility] [address] (BEAKER) (test code = [place], [address]) [address]: Hunter Skin Diver/Techni rebeca ID = [id number] for BE JEEVAN PAIGEAUFIONA Calcium, [id number] 05:34:00 Test Item Value Reference Range Interpretation Comments Calcium, Ion (test code = 1993-) 1.16 mmol/L 1.12-1.27 pH, Blood (test code = 69041-0) 7.40 [facility] CenterCALCIUM, [id number] 05:34:00 Test Item Value Reference Range Interpretation Comments CALCIUM IONIZED (BEAKER) (test 1.16 mmol/L 1.12-1.27 code = 698) PH, BLOOD (BEAKER) (test code = 7.40 1810) Basic metabolic [id number] 05:20:00 Test Item Value Reference Range Interpretation Comments Sodium (test code = 135 meq/L 136-145 L 2951-2) Potassium (test code = 3.8 meq/L 3.5-5.1 2823-3) Chloride (test code = 98 meq/L 98-107 2075-0) CO2 (test code = 27 meq/L 22-29 2028-9) BUN (test code = 73 mg/dL 7-21 H 3094-0) Creatinine (test code 3.31 mg/dL 0.57-1.25 H = 2160-0) Glucose (test code = 269 mg/dL 70-105 H 2345-7) Calcium (test code = 9.1 mg/dL 8.4-10.2 14835-6) EGFR (test code = 13 mL/min/1.73 [place] [address]-4) NOT ACCURATE CREATININE CLEARANCE IN PREDICTING GLOMERULAR FILTRATION RATE . ESTIMATED GFR I S NOT APPLICABLE FOR DIALYSIS PATIENTS. KAREN (test code = KAREN) Hunter Skin Diver ID - MELI Namrata Lab Interpretation Abnormal (test code = 64152-3) [facility] CenterCreatine Kinase (CK)2019-05-29 05:20:00 Test Item Value Reference Range Interpretation Comments Total CK (test code = 94 U/L 29-200 7-6) KAREN (test code = KAREN) Hunter Skin Diver ID - MELI M Lab Interpretation (test Normal code = 52283-1) [facility] CenterMagnesium2020-04-08 05:20:00 Test Item Value Reference Range Interpretation Comments Magnesium (test code = 2.1 mg/dL 1.6-2.6 53458-8) KAREN (test code = KAREN) Hunter Skin Diver ID - MELI M Lab Interpretation (test Normal code = 91869-0) [facility] CenterB-type Natriuretic Factor (BNP)2019-05-29 05:20:00 Test Item Value Reference Range Interpretation Comments BNP (test code = 49304-6) 1228 pg/mL 0-100 H KAREN (test code = KAREN) Hunter Skin Diver ID - MELI M Lab Interpretation (test Abnormal code = 65617-9) [facility] CenterPhosphorus2020-04-08 05:20:00 Test Item Value Reference Range Interpretation Comments Phosphorus (test code = 3.7 mg/dL 2.3-4.7 2777-1) KAREN (test code = KAREN) Hunter Skin Diver ID - MELI M Lab Interpretation (test Normal code = 42075-6) [facility] CenterUric [id number] 05:20:00 Test Item Value Reference Range Interpretation Comments Uric Acid (test code = 9.0 mg/dL 2.6-7.2 H 3084-1) KAREN (test code = KAREN) [facility] Skin Diver ID - MELI M Lab Interpretation (test Abnormal code = 96953-3) [facility] CenterURIC [id number] 05:20:00 Test Item Value Reference Range Interpretation Comments URIC ACID (BEAKER) (test code = 9.0 mg/dL 2.6-7.2 H 773) [facility] Skin Diver ID - MELI [id number] 05:20:00 Test Item Value Reference Range Interpretation Comments MAGNESIUM (BEAKER) (test code = 2.1 mg/dL 1.6-2.6 627) [facility] Diver ID - MELI [id number] 05:20:00 Test Item Value Reference Range Interpretation Comments PHOSPHORUS (BEAKER) (test code = 3.7 mg/dL 2.3-4.7 604) Hunter Skin Diver ID - MELI MCREATINE KINASE (CK)2019-05-29 05:20:00 Test Item Value Reference Range Interpretation Comments CREATINE KINASE TOTAL (BEAKER) (test 94 U/L 29-200 code = 380) Hunter Skin Diver ID - MELI MB-TYPE NATRIURETIC FACTOR (BNP)2019-05-29 05:20:00 Test Item Value Reference Range Interpretation Comments B-TYPE NATRIURETIC PEPTIDE 1228 pg/mL 0-100 H (BEAKER) (test code = 700) Hunter Skin Diver ID - MELI MBASIC METABOLIC [id number] 05:20:00 Test Item Value Reference Range Interpretation [...] S NOT APPLICABLE FOR DIALYSIS PATIEN TS. Hunter Skin Diver ID - MELI MCBC (hemogram only)2019-05-29 04:59:00 Test Item Value Reference Range Interpretation Comments WBC (test code = 6690-2) 6.4 3.5- 10.5 K/L RBC (test code = 789-8) 3.26 3.93- 5.22 M/L L MCHC (test code = 786-4) 33.3 32.2- 35.5 GM/DL L Hematocrit (test code = 4544-3) 30.3 % 34.1-44.9 L MCV (test code = 787-2) 92.9 fL 79.4-94.8 MCH (test code = 785-6) 31.0 pg 25.6-32.2 RDW (test code = 788-0) 13.1 % 11.7-14.4 Platelets (test code = 777-3) 183 150- 450 K/CU MM MPV (test code = 50584-1) 9.9 fL 9.4-12.3 nRBC (test code = 413) 0 0- 0 /100 WBC Lab Interpretation (test code = Abnormal 38628-6) [facility] with platelet count + automated [id number] 04:59:00 Test Item Value Reference Range Interpretation Comments WBC (test code = 6690-2) 6.4 3.5- 10.5 K/L RBC (test code = 789-8) 3.26 3.93- 5.22 M/L L MCHC (test code = 786-4) 33.3 32.2- 35.5 GM/DL L Hematocrit (test code = 4544-3) 30.3 % 34.1-44.9 L MCV (test code = 787-2) 92.9 fL 79.4-94.8 MCH (test code = 785-6) 31.0 pg 25.6-32.2 RDW (test code = 788-0) 13.1 % 11.7-14.4 Platelets (test code = 777-3) 183 150- 450 K/CU MM MPV (test code = 66823-6) 9.9 fL 9.4-12.3 nRBC (test code = 413) 0 0- 0 /100 WBC % Neutros (test code = 429) 70 % % Lymphs (test code = 430) 19 % % Monos (test code = 431) 9 % % Eos (test code = 432) 1 % % Baso (test code = 437) 1 % # Neutros (test code = 670) 4.47 1.56- 6.13 K/L # Lymphs (test code = 414) 1.20 1.18- 3.74 K/L # Monos (test code = 415) 0.59 0.24- 0.36 K/L H # Eos (test code = 416) 0.08 0.04- 0.36 K/L # Baso (test code = 417) 0.04 0.01- 0.08 K/L Immature Granulocytes-Relative 0 % 0-1 (test code = 2801) Lab Interpretation (test code = Abnormal 56546-1) [facility] W/PLT COUNT & AUTO [id number] 04:59:00 Test Item Value Reference Range Interpretation [...] (BEAKER) (test code = 413) U/S, RENAL, [id number] 03:58:00Reason for exam:->AKIShould this be performed at [...] Ochoa Fry MDReport Verified Date/Time: 05/29/2019 03:58:20 US renal [id number] 03:58:00Interface, External Ris In - 05/29/2019 4:00 AM CDTFINAL REPORT U/S, RENAL, COMPLETEComparison 08/02/2018, 03/22/2019 Clinical History: OTIS Discussion: Sonographic evaluation of the kidneys is performed. Right kidney: 8.9 x 4.5 x 4.6 cm, with cortical thickness of 1.1 cm. Normal cortical echogenicity. No mass. Interpolar shadowing echogenic foci measuring between 7 mm and 14 mm, similar to prior exam. No hydronephrosis. Left kidney: 8.7 x 4.7 x 5.3 cm, with cortical thickne ss of 1.1 cm. Normal cortical echogenicity. Superolateral 1.5 cm hypoechoic cyst. No shadowing calculus. No hydronephrosis. Limited doppler evaluation of bilateral main renal arteries and veins demonstrate patency. Bladder: Unremarkable. Impression: Stable exam without acute finding. Nonobstructing right nephrolithiasis. Left renal 1.5 cm cyst is stable in size. Signed: Ochoa Fry MDReportVerified Date/Time: 05/29/2019 03:58:20 [facility] [id number] 21:44:00 Test Item Value Reference Range Interpretation Comments POC-GLUCOSE METER 230 mg/dL 70-110 H : TESTED A T [facility] [address] (BEAKER) (test code = JODY Gipson [facility], 1538) [address]: Hunter Skin Diver/Techni rebeca ID = [id number] for DARIAN SWEENEY POC ACTIVATED CLOTTING [id number] 20:46:00 Test Item Value Reference Range Interpretation Comments Activated Clotting Time 136 sec : 74 -137 seconds, (test code = 441) Baseline: TESTED AT [facility] [address] [facility], [address]: Hunter Skin Diver/Techni rebeca ID = [id number] for DARIAN SWEENEY [id number] 20:46:00 Test Item Value Reference Range Interpretation Comments ACTIVATED CLOTTING TIME 136 sec : 74 -137 seconds, (BEAKER) (test code = Baseli ne: TESTED AT 441) [facility] [facility] [address] [facility], [address]: Hunter Skin Diver/Techni rebeca ID = [id number] for DARIAN SWEENEY Urinalysis w/[id number] 18:58:00 Test Item Value Reference Range Interpretation Comments Color, UA (test code = Light Yellow 5778-6) Clarity, UA (test code = Clear 5767-9) Specific [place], UA (test 1.012 1.001-1.035 code = 5811-5) pH, UA (test code = 6.0 5.0-8.0 5803-2) Protein, UA (test code = 20 mg/dL Negative A 78072-9) Glucose, UA (test code = 150 mg/dL Negative A 365) Ketones, UA (test code = Negative Negative 2514-8) Bilirubin, UA (test code = Negative Negative 83133-3) Blood, UA (test code = Trace Negative A 88102-3) Nitrite, UA (test code = Negative Negative 5802-4) Leukocytes, UA (test code Negative Negative = 5799-2) Urobilinogen, UA (test 0.2 mg/dL 0.2-1 code = 25092-5) RBC, UA (test code = 1 /HPF 36419-2) WBC, UA (test code = <1 /HPF 5821-4) Bacteria, UA (test code = Many 63564-1) Specimen Source (test code = 2795) KAREN (test code = KAREN) Hunter Skin Diver ID - [auto]Hunter Skin Diver ID - yn Lab Interpretation (test Abnormal code = 88913-1) [facility]/ [id number] 18:58:00 Test Item Value Reference Range Interpretation [...] Many 517) SOURCE(BEAKER) (test code = 2795) Hunter Skin Diver ID - [auto]Hunter Skin Diver ID - kelhXBIS-VZO7143-25-07 18:35:00 Test Item Value Reference Range Interpretation Comments ACTIVATED CLOTTING TIME 164 sec : 74 -137 seconds, (BEAKER) (test code = Baseli ne: TESTED AT 441) [facility] [address] [facility] [place], [address]: Hunter Skin Diver/Techni rebeca ID = [id number] for SHONDA HENDRICKS BASIC METABOLIC [id number] 16:41:00 Test Item Value Reference Range Interpretation [...] S NOT APPLICABLE FOR DIALYSIS PATIEN TS. Hunter Skin Diver ID - [id number] 16:33:00 Test Item Value Reference Range Interpretation Comments ACTIVATED CLOTTING TIME 202 sec : 74 -137 seconds, (BEAKER) (test code = Baseli ne: TESTED AT 441) [facility] [address] [facility] [place], [address]: Hunter Skin Diver/Techni rebeca ID = [id number] for SHONDA HENDRICKS CBC (HEMOGRAM ONLY)2019-05-28 16:25:00 [...] WBC 0-0 (BEAKER) (test code = 413) [id number] 14:53:00 Test Item Value Reference Range Interpretation Comments ACTIVATED CLOTTING TIME 246 sec : 74 -137 seconds, (BEAKER) (test code = Baseli ne: TESTED AT 441) [address], [address]: Hunter Skin Diver/Techni rebeca ID = [id number] for Riley Cuevas [id number] 14:07:00 Test Item Value Reference Range Interpretation Comments ACTIVATED CLOTTING TIME 213 sec : 74 -137 seconds, (BEAKER) (test code = Baseli ne: TESTED AT 441) [address], [address]: Hunter Skin Diver/Techni rebeca ID = [id number] for Riley Cuevas [id number] 14:07:00 Test Item Value Reference Range Interpretation Comments ACTIVATED CLOTTING TIME 109 sec : 74 -137 seconds, (BEAKER) (test code = Baseli ne: TESTED AT 441) [address], [address]: Hunter Skin Diver/Techni rebeca ID = [id number] for Riley Cuevas Creatinine, random [id number] 13:05:00 Test Item Value Reference Range Interpretation Comments Creatinine, Ur 65.1 mg/dL (test code = 2161-8) KAREN (test code = Reference Range: No KAREN) NormalsOperator ID - BS [facility] CenterProtein, random [id number] 13:05:00 Test Item Value Reference Range Interpretation Comments Protein, Urine (test code = 10 mg/dL 0-14 2888-6) KAREN (test code = KAREN) Hunter Skin Diver ID - BS Lab Interpretation (test Normal code = 03975-7) [facility] [id number] 13:05:00 Test Item Value Reference Range Interpretation Comments Sodium Urine (test 35 meq/L code = 2955-3) KAREN (test code = Reference Range: No KAREN) NormalsOperator ID - BS [facility] CenterCREATININE, RANDOM [id number] 13:05:00 Test Item Value Reference Range Interpretation Comments CREATININE URINE (BEAKER) (test 65.1 mg/dL code = 375) Reference Range: No NormalsOperator ID - BSPROTEIN, RANDOM [id number] 13:05:00 Test Item Value Reference Range Interpretation Comments PROTEIN, URINE (BEAKER) (test code = 10 mg/dL 0-14 1569) Hunter [employer] Diver ID - BSSODIUM, RANDOM [id number] 13:05:00 Test Item Value Reference Range Interpretation Comments SODIUM URINE (BEAKER) (test code = 35 meq/L 243) Reference Range: No NormalsOperator ID - BSPOCT-GLUCOSE [id number] 12:14:00 Test Item Value Reference Range Interpretation Comments POC-GLUCOSE METER 313 mg/dL 70-110 H : TESTED A T [facility] [address] (BEAKER) (test code = OJDY Brandan [facility], 1538) [address]: Hunter Skin Diver/Techni rebeca ID = [id number] for SHONDA MORA POCT-GLUCOSE [id number] 09:43:00 Test Item Value Reference Range Interpretation Comments POC-GLUCOSE METER 272 mg/dL 70-110 H : Notified RN/MD: (BEAKER) (test code = TESTED AT [facility] [address] 1538) [facility], [address]: Hunter Skin Diver/Techni rebeca ID = [id number] for LIZ PRIEST [id number] 09:00:00 Test Item Value Reference Range Interpretation Comments PTT (test code = 67753-6) 67.2 22.5- 36.0 seconds H Lab Interpretation (test code = Abnormal 17070-1) [facility] CenterAPTT2020-04-07 09:00:00 Test Item Value Reference Range Interpretation Comments PARTIAL THROMBOPLASTIN TIME 67.2 seconds 22.5-36.0 H (BEAKER) (test code = 760) BASIC METABOLIC [id number] 07:07:00 Test Item Value Reference Range Interpretation [...] S NOT APPLICABLE FOR DIALYSIS PATIEN TS. Hunter Skin Diver ID - [id number] 06:56:00 Test Item Value Reference Range Interpretation [...] = 413) CBC W/PLT COUNT & AUTO [id number] 06:51:00 Test Item Value Reference Range Interpretation [...] 417) IMMATURE GRANULOCYTES-RELATIVE 0 % 0-1 PERCENT (CRISTY) (test code = 2801) ECG 12 [id number] 06:33:54Interface, External Ris In - 05/28/2019 6:33 AM CDTVentricular Rate 91 BPMAtrial Rate 91 BPMP-R Interval 184 msQRS Duration 112 msQ-T Interval 410 msQTC Calculation(Bazett) 504 msP [place] 80 degreesR [place] 53 degreesT [place] 215 degreesNormal sinus rhythmIncomplete left bundle branch blockST depression inferior and anterolateral leads + ST elevation in aVR consider ischemiaProlonged QTAbnormal ECGWhen compared with ECG of 22:06ST now depressed in Lateral leadsST now elevated in aVRConfirmed by MD JORGE, MATHEUS ([id number]) on 05/28/2019 6:33:47 [facility] I 2019-05-28 05:00:00 Test Item Value Reference Range Interpretation Comments Troponin I (test code = 1.06 ng/mL 0-0.03 83765-5) KAREN (test code = KAREN) Troponin I (TnI) levels must be interpreted [...] failure, acidosis, acute neurological disease, and persistent tachyarrhythmia.Opera tor ID - BS Lab Interpretation (test Abnormal code = 88568-6) [facility] [id number] 05:00:00 Test Item Value Reference Range Interpretation [...] failure, acidosis, acute neurological disease, and persistent tachyarrhythmia.Hunter Skin Diver ID - BSTROPONIN [id number] 00:21:00 Test Item Value Reference Range Interpretation [...] failure, acidosis, acute neurological disease, and persistent tachyarrhythmia.Hunter Skin Diver ID - BSBASIC METABOLIC PANEL 2019-05-28 00:18:00 [...] S NOT APPLICABLE FOR DIALYSIS PATIEN TS. Hunter Skin Diver ID - BSB-TYPE NATRIURETIC FACTOR (BNP)2019-05-28 00:13:00 Test Item Value Reference Range Interpretation Comments B-TYPE NATRIURETIC PEPTIDE (BEAKER) 416 pg/mL 0-100 H (test code = 700) Hunter Skin Diver ID - BSPT/[id number] 23:58:00 Test Item Value Reference Range Interpretation Comments Protime (test code = 13.3 11.9- 14.2 5902-2) seconds INR (test code = 1.0 <=5.9 6301-6) PTT (test code = 25.2 22.5- 36.0 87104-6) seconds KAREN (test code = KAREN) Effective 07/18/2018: PT Reference Range ChangeNew: 11.9-14.2 Previous: 11.7-14.7 RECOMMENDED COUMADIN/WARFARIN INR THERAPY RANGESSTANDARD DOSE: 2.0-3.0 Includes: PROPHYLAXIS for venous thrombosis, systemic embolization; TREATMENT for venous thrombosis and/or pulmonary embolus.HIGH RISK: Target INR is 2.5-3.5 for patients wiht mechanical heart valves. Lab Interpretation Normal (test code = 16955-2) [facility] CenterAPTT2020-04-06 23:58:00 Test Item Value Reference Range Interpretation Comments PARTIAL THROMBOPLASTIN TIME 24.1 seconds 22.5-36.0 (BEAKER) (test code = 760) 6 hours after starting heparin infusion and as indicated per sliding scale PT/[id number] 23:58:00 Test Item Value Reference Range Interpretation [...] INR is2.5-3.5 for patients wiht mechanical heart valves.Platelet [id number] 23:50:00 Test Item Value Reference Range Interpretation Comments Platelets (test code = 209 150- 450 K/CU MM 777-3) KAREN (test code = KAREN) Hunter Skin Diver ID - [id number] Lab Interpretation (test Normal code = 68416-4) [facility] CenterCBC W/PLT COUNT & AUTO [id number] 23:50:00 Test Item Value Reference Range Interpretation [...] 417) IMMATURE GRANULOCYTES-RELATIVE 0 % 0-1 PERCENT (CRISTY) (test code = 2801) PLATELET [id number] 23:50:00 Test Item Value Reference Range Interpretation Comments PLATELET COUNT (CRISTY) (test 209 K/CU MM 150-450 code = 756) Hunter Skin Diver ID - [id number], CHEST, 1 VIEW, NON [id number] 23:36:00Reason for exam:->CHEST PAIN, dyspneaShould this be [...] Ochoa Fry MDReport Verified Date/Time: 05/27/2019 23:36:18 XR chest 1 view portable / [id number] 23:36:00Interface, External Ris In - 05/27/2019 11:38 PM CDTFINAL REPORT RAD, CHEST, 1 VIEW, NON DEPT INDICATION: CHEST PAIN, dyspnea COMPARISON: March 20, 2019 FINDINGS: Portable frontal view of the chest. IMPRESSION: Support Lines: None Lungs and pleura: Left lung base linear opacities suggestive of scarring are stable. Lungs are otherwise clear. No pneumothorax.Heart and mediastinum: Stable contours. Additional findings: Bilateral humeral deformities are stable. Costochondral calcifications present. Signed: Ochoa Fry MDReport Verified Date/Time: 05/27/2019 23:36:18 [facility] HospitalPOCT-GLUCOSE METER 2019-03-23 11:53:00 Test Item Value Reference Range Interpretation Comments POC-GLUCOSE METER 309 mg/dL 70-110 H : TESTED A T [facility] [address] (CRISTY) (test code = [place], [address]) [address]: Hunter Skin Diver/Techni rebeca ID = [id number] for NOVA PERSAUD Carotid doppler [id number] 09:28:23Ejection [facility] ECHO HEARTLAB MKCKESSON CPACSRight Impression1. There is <50% diameter reduction (approximately 45.7% by 2-D measurement)in the internal carotid artery with a peak velocity of 81/18 cm/sec andheterogeneous shadowing plaque.2. There is >50% stenosis in the external carotid artery with a velocity of180/28cm/sec.3. There is non-occluding plaque in the common carotid artery.4. The vertebral artery is not visualized.5. The subclavian artery is within normal limits where visualized.Left Impression1. There is <50% diameter reduction (approximately 25.2% by 2-D measurement)inthe internal carotid artery with a peak velocity of 64/16 cm/sec andheterogeneous shadowing plaque.2. There is non- occluding plaque in the external carotid artery.3. There is non-occluding plaque in the common carotid artery.4. The vertebral artery is not visualized.5. The subclavian artery is within normal limits where visualized. Conclusions Summary Carotid duplex scanning and color flow imagingwere performed bilaterally. The arteries were adequately visualized. The bilateral internal carotid arteries had <50% hemodynamically insignificant stenosis (approximately 45.7% by 2-D measurement on the right, approximately 25.2% by 2-D measurement on the left) with heterogeneous plaque. The rightexternal carotid artery had > 50% stenosis. The vertebral artery flow was not visualized bilaterally. The subclavian arteries were patent with normal flow bilaterally where visualized. Signature -- Velocities are measured in cm/s ; Diameters are measured in cm Carotid Right Measur ements+ +----+----+-----+ + + -+!Location !PSV !EDV !Angle!%Stenosis 2D!%Stenosis Doppler!Tortuosity !+ +----+----+-----+ -+ + +!Prox CCA !64.6!12.4!60 ! ! ! !+ +----+----+-----+ + + +!Di st CCA !65.9!16.8!60 ! ! ! !+ +----+----+-----+ --+ + +!Prox ICA !81.3!18.2!60 !45.7% !<50% ! !+ +----+----+-----+ + + +!Di st ICA !110 !24.5!60 ! ! ! !+ +----+----+-----+------ ------+ + +!Prox ECA !180 !28.2!60 ! ! ! !+ +----+----+-----+ + + +!Pr ox Subclavian!117 ! !60 ! ! ! !+ +----+----+-----+ + + + - Additional Measurements:ICAPSV/CCAPSV 1.67.ICAEDV/CCAEDV 1.98. Carotid Left Measurements+ +----+----+-----+ + +---- -------+!Location !PSV !EDV !Angle!%Stenosis 2D!%Stenosis Doppler!Tortuosity !+ +--- -+----+-----+ + + +!Prox CCA !60.9!17.5!60 !! ! !+ +----+----+-----+ + +------ -----+!Dist CCA !54.6!15.4!60 ! ! ! !+ +-- --+----+-----+ + + +!Prox ICA !64.5!16.8!60 !25.2% !<50% ! !+ +----+----+-----+ + +-- ---------+!Dist ICA !81.3!25.9!60 ! ! ! !+ -+----+----+-----+ + + +!Prox ECA !90.4!14.7!60 ! ! ! !+ +----+----+-----+ + +- +!Prox Subclavian!109 ! !60 ! ! ! !+ --+----+----+-----+ + + + - Additional Measurements:ICAPSV/CCAPSV 1.49.ICAEDV/CCAEDV 1.48. Interface, External Ris In - 03/23/2019 9:28 AM CSTPV LAB - Carotid Duplex Study Demographics Patient Name HENRIQUE ARECHIGA Date of Study 03/22/2019 DUKEDEShay Age 78 Visit Number [id number] Gender Female Accession Number [id number] Date of 1940 Referring Pending Sale To [facility] Room Number C633 Physician Malcom De [facility] Interpreting Brandi Camara, Physician ProcedureType of Study: Cerebral: Carotid, CAROTID DOPPLER, BILATERAL. Indications for Study:TIA .Patient Status:Routine.Study Location:Portable.Technical Quality:Adequate visualization.Risk FactorsHistory of Disease+ + + -----+!Diagnosis !Date !Comments !+ ---+ + +!History/Risk Factors:! !CKD, HLD,HTN, CAD, IABP, Morbid Obesity !+ + + ------+!History/Risk Factors:!03/22/2019!S/P heart cath !+ ----+ + +ImpressionsRight Impression1. There is <50% diameter reduction (approximately 45.7% by 2-D measurement)in the internal carotid artery with apeak velocity of 81/18 cm/sec andheterogeneous shadowing plaque.2. There is >50% stenosis in the external carotid artery with a velocity of180/28cm/sec.3. There is non-occluding plaque in the commoncarotid artery.4. The vertebral artery is not visualized.5. The subclavian artery is within normal limits where visualized.Left Impression1. There is <50% diameter reduction (approximately 25.2% by 2-D measurement)in the internal carotid artery with a peak velocity of 64/16 cm/sec andheterogeneous shadowing plaque.2. There is non-occluding plaque in the external carotid artery.3. There is non-occluding plaque in the common carotid artery.4. The vertebral artery is not visualized.5. The subclavianartery is within normal limits where visualized. Conclusions [...] in cm/s ; Diameters are measured in cmCarotid Right Measurements+ +----+----+-----+ + +---- -------+!Location !PSV !EDV !Angle!%Stenosis 2D!%Stenosis Doppler!Tortuosity !+ +----+----+- ----+ + + +!Prox CCA !64.6!12.4!60 ! ! ! !+ +----+----+-----+ + + +!D ist CCA !65.9!16.8!60 ! ! ! !+ +----+----+ -----+ + + +!Prox ICA !81.3!18.2!60 !45.7% !<50% ! !+ +----+----+-----+ + + +!Dist ICA !110 !24.5!60 ! ! ! !+ +----+- ---+-----+ + + +!Prox ECA !180 !28.2!60 ! ! ! !+ +----+----+-----+ + +--------- --+!Prox Subclavian!117 ! !60 ! ! ! !+ +----+----+-----+ + + + - Additional Measurements:ICAPSV/CCAPSV 1.67.ICAEDV/CCAEDV 1.98.Carotid Left Measurements+ +----+----+-----+ + ------+ +!Location !PSV !EDV !Angle!%Stenosis 2D!%Stenosis Doppler!Tortuosity !+----- +----+----+-----+ + + +!Prox CCA !60.9!17.5!60 ! ! ! !+ +----+----+-----+ + -------+ +!Dist CCA !54.6!15.4!60 ! ! ! !+---- +----+----+-----+ + + +!Prox ICA !64.5!16.8!60 !25.2% !<50% ! !+ +----+----+-----+ +------ + +!Dist ICA !81.3!25.9!60 ! ! ! !+ +----+----+-----+ + + +!Prox ECA !90.4!14.7!60 ! ! ! !+ +----+----+-----+ +----- + +!Prox Subclavian!109 ! !60 ! ! ! ! + +----+----+-----+ + + + - Additional Measurements:ICAPSV/CCAPSV 1.49.ICAEDV/CCAEDV 1.48.[facility] [id number] 08:34:00 Test Item Value Reference Range Interpretation Comments POC-GLUCOSE METER 209 mg/dL 70-110 H : TESTED Carli T [facility] [address] (CRISTY) (test code = [place], [address]) [address]: Hunter Skin Diver/Techni rebeca ID = [id number] for NOVA PERSAUD Comprehensive metabolic [id number] 07:27:00 Test Item Value Reference Range Interpretation Comments Protein, Total (test 6.3 6.0- 8.3 gm/dL Speci men slightly code = 2885-2) hemolyzed Albumin (test code = 3.4 g/dL 3.5-5 L Specime n slightly 52677-6) hemolyzed Alkaline Phosphatase 52 U/L 40-150 (test code = 6768-6) Total Bilirubin (test 0.4 mg/dL 0.2-1.2 Specim en slightly code = 1975-2) hemolyzed Sodium (test code = 140 meq/L 990-846 5866-2) Potassium (test code = 4.1 meq/L 3.5-5.1 Speci men slightly 2823-3) hemolyzed Chloride (test code = 102 meq/L 98-107 2074-0) CO2 (test code = 25 meq/L 22-29 2027-10) BUN (test code = 49 mg/dL 7-21 H 3094-0) Creatinine (test code 2.86 mg/dL 0.57-1.25 H Specim en slightly = 2160-0) hemolyzed Glucose (test code = 164 mg/dL 70-105 H 2345-7) Calcium (test code = 9.0 mg/dL 8.4-10.2 81627-4) AST (test code = 27 U/L 5-34 Specimen sl ightly 1920-8) hemolyzed ALT (test code = 14 U/L 6-55 Specimen sl ightly 1742-6) hemolyzed EGFR (test code = 16 mL/min/1.73 [place] [address]-1) NOT ACCURATE CREATININE CLEARANCE IN PREDICTING GLOMERULAR FILTRATION RATE . ESTIMATED GFR I S NOT APPLICABLE FOR DIALYSIS PATIENTS. KAREN (test code = KAREN) Hunter Skin Diver ID - PIAYA L Lab Interpretation Abnormal (test code = 51101-8) [facility] CenterCOMPREHENSIVE METABOLIC [id number] 07:27:00 Test Item Value Reference Range Interpretation [...] S NOT APPLICABLE FOR DIALYSIS PATIEN TS. Hunter Skin Diver ID - PIAYA LCBC W/PLT COUNT & AUTO [id number] 03:51:00 Test Item Value Reference Range Interpretation [...] PERCENT (BEAKER) (test code = 2801) POCT-GLUCOSE [id number] 22:09:00 Test Item Value Reference Range Interpretation Comments POC-GLUCOSE METER 172 mg/dL 70-110 H : TESTED A T [facility] 6720 (BEAKER) (test code = [facility], 1538) [address]: Hunter Skin Diver/Techni rebeca ID = [id number] for HAIR ASH POCT-GLUCOSE [id number] 17:30:00 Test Item Value Reference Range Interpretation Comments POC-GLUCOSE METER 284 mg/dL 70-110 H : TESTED A T [facility] 67[address] (BEAKER) (test code = [facility], 1538) [address]: Hunter Skin Diver/Techni rebeca ID = [id number] for NOVA PERSAUD 2D Echo W/Doppler(CW/PW/Color)2019-03-22 17:25:25Ejection [facility] ECHO HEARTLAB MKCKESSON CPACSInterface, External Ris In - 03/22/2019 5:25 PM C STTransthoracic Echocardiography Report (TTE) Demographics Patient Name HENRIQUE ARECHIGA Date of Study 03/22/2019 ESCOBDEO Gender Female Visit Number [id number] Race [id number] Room Number C633 Number Date of 1940 Referring Physician Peyton Choe Age 78 year(s) Trouble Operator Daniel Khan Interpreting Raul Acosta MD Physician Procedure Type of Study TTE procedure:2DECHO W DOPPLER(CW/PW/COLOR) (Routine) Indications:Acute Chest Pain/ Suspected CAD.Clinical HistoryHGB 11.7HCT 35.5 %CHF, CAD, IDDM, HTN, NSTEMI S/P IMPELLA AND PCI 08/01/18, CKD IV, HLD,AFLUTTER, ROLDAN, ANXIETYContrast Medium: Definity. Amount - 4 mlHeight: 61 inches Weight: 68.04 kg (150 lbs) BSA: 1.67 m^2 BMI: 28.34 kg/m^2HR: 87 bpm BP:142/60 mmHg Summary Technically difficult study. 1. LV endocardium is adequately visualized with IVultrasound enhancing agent. The left ventricle is chamber size (by vol index) is normal. Mild concentric LV hypertrophy. All of the LV segments are mildly hypokinetic . LVEF by Beauchamp's method of diskassessment is mildly reduced (40-44%). LV diastolic function is indeterminate. 2. Right ventricle not well seen. Systolic function appears grossly normal, S' > 10 cm/s. 3. No significant valvular a bnormality 4. Unable to estimate peak systolic PA pressure; inadequate TR velocity signal. Previous Study Compared with prior study from 01/28/19, there is no significant change. Signature Findings Left Ventricle Technically difficult study. LV endoca rdium is adequately visualized with IV ultrasound enhancing agent. The left ventricle is chamber size (by vol index) is normal. Mild concentric LV hypertrophy. All of the LV segments are mildly hypokinetic . LVEF by Beauchamp's method of disk assessment is mildly reduced (40-44%) . LV diastolic function is indeterminate. Left Atrium LA size is mildly enlarged (35-41 ml/m2) . Right Ventricle Right ventricle not well seen. Systolic function appears grossly normal, S' > 10 cm/s. Right Atrium RA size is normal. Aortic Valve The aortic valve is not well visualized. There is no aortic stenosis. There is no aortic regurgitation. Mitral Valve Mitral leaflet thickening and calcification. Trace mitral regurgitation. Tricuspid Valve The tricuspid valve is not well visualized. A trace of tricuspid regurgitation. Unable to estimate peak systolic PA pressure; inadequate TR velocity signal. Pulmonic Valve PV is not well visualized. Aorta Aortic root size (SInus of Valsalva diameter) is indeterminate (not well seen) . Pericardium No pericardial effusion is visualized. IVC/SVC/PA/PV/Pleural The estimated RA pressure by IVC dynamics 0-5mmHg . Chambers/Structures Left Atrium LA Volume: 66.09 ml LA Area: 19.48 cm^2 LA Vol. Index: 40 ml/m^2 Left Ventricle LVIDd: 4.16 cmLVEDV:93.52 ml LV Septum Diastolic: 1.12 cm LV PW Diastolic: 1.2 cm LVEDV Beauchamp's:84.97 ml LV Length: 7.34 cm LVESV Beauchamp's:49.85 ml LVEF Beauchamp's: 41.3 % LVEDVI: 51 ml/m^2 LVESVI: 30 ml/m^2 LVOT Diameter: 2.18 cm Doppler/Quantitative Measurements Aortic Valve Peak Velocity: 1.19 m/s Mean V elocity: 0.87 m/s Peak Gradient: 5.63 mmHg Mean Gradient: 3.28 mmHg AV Area (continuity): 3.29 cm^2 AV VTI: 23.92 cm AV DVI: 0.88 LVOT Peak Velocity: 0.9 m/s Peak Gradient: 3.27 mmHg Mean Velocity: 0.61 m/s Mean Gradient: 1.72 mmHg LVOT Diameter: 2.18 cm LVOT VTI: 21.11 cm LVOT Area: 3.73 cm^2 LVOT SV:78.75 ml LVOT CO: 6.85 l/min LVOT CI: 4.1 l/min/m^2CK[facility]OLIC [id number] 16:26:00 Test Item Value Reference Range Interpretation [...] S NOT APPLICABLE FOR DIALYSIS PATIEN TS. Hunter Skin Diver ID - AAHAMIDPOCT-GLUCOSE [id number] 16:16:00 Test Item Value Reference Range Interpretation Comments POC-GLUCOSE METER 233 mg/dL 70-110 H : TESTED A T [facility] [address] (BEAKER) (test code = [place], [address]) [address]: Hunter Skin Diver/Techni rebeca ID = [id number] for NOVA PERSAUD CBC (HEMOGRAM ONLY)2019-03-22 16:08:00 [...] WBC 0-0 (BEAKER) (test code = 413) [id number] 11:06:00 Test Item Value Reference Range Interpretation Comments ACTIVATED CLOTTING TIME 263 sec Refe rence Range: (BEAKER) (test code = 74-137 seconds, 441) Baseline/TESTED AT [place] [id number] [facility] [address] 0 [id number] 10:50:00 Test Item Value Reference Range Interpretation Comments ACTIVATED CLOTTING TIME 263 sec Refe rence Range: (BEAKER) (test code = 74-137 seconds, 441) Baseline/TESTED AT [place] [id number] [facility] 7703 0 POCT-GLUCOSE [id number] 07:45:00 Test Item Value Reference Range Interpretation Comments POC-GLUCOSE METER 188 mg/dL 70-110 H : TESTED A T [place] [address] (BEAKER) (test code = [facility], 1538) [address]: Hunter Skin Diver/Techni rebeca ID = [id number] for AMISH MABRYOTONIEL BRANDI BASIC METABOLIC [id number] 02:49:00 Test Item Value Reference Range Interpretation [...] S NOT APPLICABLE FOR DIALYSIS PATIEN TS. Hunter Skin Diver ID - MARILU LB-TYPE NATRIURETIC FACTOR (BNP)2019-03-22 02:44:00 Test Item Value Reference Range Interpretation Comments B-TYPE NATRIURETIC PEPTIDE (BEAKER) 815 pg/mL 0-100 H (test code = 700) Hunter Skin Diver STEPHANE MICHEL LLipid [id number] 02:42:00 Test Item Value Reference Range Interpretation Comments Triglycerides (test 102 mg/dL code = 2571-8) Cholesterol (test code 161 mg/dL = 2093-3) HDL (test code = 40 mg/dL 2085-9) LDL Calculated (test 101 mg/dL code = 71560-5) KAREN (test code = KAREN) Triglyceride Reference Range: Low Risk <150 Borderline 150-199 High Risk 200-499 Very High Risk >=500 Cholesterol Reference Range: Low Risk <200 Borderline 200-239 High Risk >240 HDL Cholesterol Reference Range: Low Risk >=60 High Risk <40 LDL Cholesterol Reference Range: Optimal <100 Near Optimal 100-129 Borderline 130-159 High 160-189 Very High >=190 Hunter Skin Diver ID - MARILU [facility]intyre [facility] 02:42:00 Test Item Value Reference Range Interpretation Comments PHOSPHORUS (BEAKER) (test code = 4.4 mg/dL 2.3-4.7 604) Hunter Skin Diver ID - MARILU [id number] 02:42:00 Test Item Value Reference Range Interpretation Comments MAGNESIUM (BEAKER) (test code = 2.1 mg/dL 1.6-2.6 627) Hunter Skin Diver ID - MARILU LLIPID [id number] 02:42:00 Test Item Value Reference Range Interpretation [...] Borderline 130-159 High 160-189 Very High >=190 Hunter Skin Diver ID - [id number] 02:36:00 Test Item Value Reference Range Interpretation Comments PARTIAL THROMBOPLASTIN TIME 85.7 seconds 22.5-36.0 H (BEAKER) (test code = 760) CALCIUM, [id number] 02:33:00 Test Item Value Reference Range Interpretation Comments CALCIUM IONIZED (BEAKER) (test 1.10 mmol/L 1.12-1.27 L code = 698) PH, BLOOD (BEAKER) (test code = 7.40 1810) CBC W/PLT COUNT & AUTO [id number] 02:23:00 Test Item Value Reference Range Interpretation [...] (BEAKER) (test code = 2801) U/S, ABDOMINAL, [id number] 01:50:00Reason for exam:->abd painFINAL REPORT INDICATION: abd [...] Signed: Socorro Méndezeport Verified Date/Time: 03/22/2019 01:50:03 US abdomen [id number] 01:50:00Interface, External Ris In - 03/22/2019 1:53 AM CSTFINAL REPORT INDICATION: abd pain COMPARISON: Renal ultrasound dated 12/21/2018. TECHNIQUE: Real-time transabdominal lares scale and color Doppler ultrasound of the abdomen. FINDINGS:Liver: Size: 11.3cm. Echogenicity:Normal. Masses/lesions: None. Surface Nodularity: None. Intrahepatic bile ducts: Normal. Common bile duct: 0.6 cm. MPV: 0.9cm. Gallbladder: Surgically absent. Pancreas: Head and uncinate process: Unremarkable. Body and tail: Not well-seen. Spleen: Size: [...] Signed: Socorro Méndez Verified Date/Time: 03/22/2019 01:50:03 [facility] [id number] 21:37:00 Test Item Value Reference Range Interpretation Comments POC-GLUCOSE METER 257 mg/dL 70-110 H : TESTED A T [facility] 6720 (BEAKER) (test code = [employer] [facility], 1538) [address]: Hunter Skin Diver/Techni rebeca ID = [id number] for EMILIO CUEVAS [id number] 19:18:00 Test Item Value Reference Range Interpretation Comments PARTIAL THROMBOPLASTIN TIME 53.5 seconds 22.5-36.0 H (BEAKER) (test code = 760) POCT-GLUCOSE [id number] 17:38:00 Test Item Value Reference Range Interpretation Comments POC-GLUCOSE METER 246 mg/dL 70-110 H : TESTED A T [facility] 6720 (BEAKER) (test code = [employer] [facility], 1538) 815[address]: Hunter Skin Diver/Techni rebeca ID = [id number] for SOL HAYDEN SHY CT, BRAIN, WITHOUT [id number] 17:36:00Reason for exam:->Left sided weakness, more so [...] recommended for further characterization. Signed: Kavitha Box MDReport Verified Date/Time: 03/21/2019 17:36:00 CT brain without IV [id number] 17:36:00Interface, External Ris In - 03/21/2019 5:[address], BRAIN, WITHOUT CONTRAST INDICATION: Left sided weakness, more so LUE than LLE - last felt normal last nightLeft sided weakness, more so LUE than LLE - last felt normal last night TECHNIQUE: Noncontrast axial imaging was obtained from the vertex to the skull base. Axial images were reconstructed using a bone algorithm. DOSE REDUCTION: Dose modulation, iterative reconstruction, and/or weight-based adjustment ofthe mA/kV was utilized to reduce the radiation dose to as low as reasonably achievable. COMPARISON: None. FINDINGS: Intracranial: Streak artifact related to cranial-cervical fusion hardware limits evaluation of the posterior fossa. No intracranial hemorrhage or abnormal extra-axial collection. No evidence of acute territorial infarct. Age- indeterminate but chronic appearing lacunar infarct in the left lentiform nucleus. No mass effect. No hydrocephalus. Coarse extra-axial left frontal calcification.Osseous structures: No fracture. Postsurgical changes of suboccipital decompression and craniocervical fusion. Paranasal sinuses and mastoid air cells: No evidence of sinusitis. Mastoids are clear. Orbital contents: Globes are intact. IMPRESSION: Streak artifact related to craniocervical fusion limitsevaluation of the posterior fossa. Otherwise, no CT evidence of acute intracranial hemorrhage or territorial infarct. If there is persistent clinical concern for intracranial pathology, MR examinationis recommended for further characterization. Signed: Kavitha Box Verified Date/Time: 03/21/2019 17:36:00 [facility] 2019-03-21 15:50:00 Test Item Value Reference Range Interpretation Comments TROPONIN I (BEAKER) (test code = 0.57 ng/mL 0.00-0.03 [facility]) Troponin I (TnI) levels must be interpreted [...] failure, acidosis, acute neurological disease, and persistent tachyarrhythmia.Hunter Skin Diver ID - BSRAD, SHOULDER, COMPLETE (MIN 2 VIEWS), [id number] 14:38:00Reason for exam:->shoulder pain with ROMFINAL REPORT [...] MDReport Verified Date/Time: 03/21/2019 14:38:21 Reading Location: [facility] Radiology Reading Room XR shoulder complete 2 views min [id number] 14:38:00 Interface, External Ris In - 03/21/2019 2:40 PM CSTFINAL REPORT RAD, SHOULDER, COMPLETE (MIN 2 VIEWS), LEFT COMPARISON: None INDICATION: shoulder pain with ROM FINDINGS: AP views in internal and external rotation and an axillary "Y" view of the left shoulder. Osseous structu res: No fracture.Joint spaces: Intact without malalignment. Moderate degenerative changes.Soft tissues: Unremarkable IMPRESSION: No acute abnormality of the left shoulder. Signed: JR Hernandez Robert MDReport Verified Date/Time: 03/21/2019 14:38:21 Reading Location: [facility] Radiology Reading Room [facility] HospitalPO[facility]GLU[facility]SE [id number] 13:19:00 Test Item Value Reference Range Interpretation Comments POC-GLUCOSE METER 155 mg/dL 70-110 H : TESTED A T [facility] 6720 (BEAKER) (test code = [facility], 1538) [address]: Hunter Skin Diver/Techni rebeca ID = [id number] for FARIBA CARRILLO [id number] 11:14:00 Test Item Value Reference Range Interpretation Comments PARTIAL THROMBOPLASTIN TIME 108.5 seconds 22.5-36.0 H (BEAKER) (test code = 760) POCT-GLUCOSE [id number] 07:51:00 Test Item Value Reference Range Interpretation Comments POC-GLUCOSE METER 198 mg/dL 70-110 H : TESTED A T [facility] 6720 (BEAKER) (test code = [facility], 1538) 779[address]: Hunter Skin Diver/Techni rebeca ID = [id number] for SHY MIRAMONTES [id number] 03:52:00 Test Item Value Reference Range Interpretation Comments PARTIAL THROMBOPLASTIN 106.2 seconds 22.5-36.0 H B.no .[id number] ok to TIME (BEAKER) (test released result. code = 760) BASIC METABOLIC [id number] 02:58:00 Test Item Value Reference Range Interpretation [...] S NOT APPLICABLE FOR DIALYSIS PATIEN TS. Hunter Skin Diver ID - MELI [facility] (HEMOGRAM ONLY)2019-03-21 02:32:00 Test Item Value Reference [...] 0-0 (BEAKER) (test code = 413) POCT-GLUCOSE [id number] 21:58:00 Test Item Value Reference Range Interpretation Comments POC-GLUCOSE METER 281 mg/dL 70-110 H : TESTED A T [facility] 6720 (BEAKER) (test code [facility], = 1538) 407[address]: Hunter Skin Diver/Techni rebeca ID = [id number] for NAT CHRISTIANSON [id number] 19:51:00 Test Item Value Reference Range Interpretation Comments PARTIAL THROMBOPLASTIN TIME 88.1 seconds 22.5-36.0 H (BEAKER) (test code = 760) CREATININE, RANDOM [id number] 18:56:00 Test Item Value Reference Range Interpretation Comments CREATININE URINE (BEAKER) (test 56.6 mg/dL code = 375) Reference Range: No NormalsOperator ID - BSPROTEIN, RANDOM [id number] 18:56:00 Test Item Value Reference Range Interpretation Comments PROTEIN, URINE (BEAKER) (test code = 11 mg/dL 0-14 1569) Hunter Skin Diver ID - BSURINALYSIS W/ [id number] 18:48:00 Test Item Value Reference Range Interpretation [...] code = 516) SOURCE(BEAKER) (test code = 3849) Hunter Skin Diver ID - [auto]Hunter Skin Diver ID - hankPOCT-GLUCOSE [id number] 18:32:00 Test Item Value Reference Range Interpretation Comments POC-GLUCOSE METER 190 mg/dL 70-110 H : TESTED A T [facility] 6720 (BEAKER) (test code = JODY Gipson [facility], 1538) 764[address]: Hunter Skin Diver/Techni rebeca ID = [id number] for SHY MIRAMONTES, CHEST, 1 VIEW, NON [id number] 15:28:00Reason for exam:->Fluid statusShould this be performed [...] Stormeport Verified Date/Time: 03/20/2019 15:28:46 Reading Location: [facility] Reading Room Electronically signed by: NOEMY STORM M.D. on03/20/2019 03:28 PMTROPONIN [id number] 13:36:00 Test Item Value Reference Range Interpretation Comments TROPONIN I (CRISTY) (test code = 0.78 ng/mL 0.00-0.03 [facility]) Troponin I (TnI) levels must be interpreted [...] failure, acidosis, acute neurological disease, and persistent tachyarrhythmia.Hunter Skin Diver ID - TRISTON [id number] 12:50:00 Test Item Value Reference Range Interpretation Comments PARTIAL THROMBOPLASTIN TIME 65.6 seconds 22.5-36.0 H (BEAKER) (test code = 760) POCT-GLUCOSE [id number] 11:57:00 Test Item Value Reference Range Interpretation Comments POC-GLUCOSE METER 154 mg/dL 70-110 H : TESTED A T [facility] 6720 (BEAKER) (test code = [place], 1538) [address]: Hunter Skin Diver/Techni rebeca ID = [id number] for SHY MIRAMONTES Hemoglobin [id number] 09:21:00 Test Item Value Reference Range Interpretation Comments Hemoglobin A1C (test code = 4548-4) 8.5 % 4.3-6.1 H Lab Interpretation (test code = Abnormal 16834-3) [facility]HEMO[facility] [id number] 09:21:00 Test Item Value Reference Range Interpretation Comments HEMOGLOBIN A1C (BEAKER) (test code = 8.5 % 4.3-6.1 H 368) POCT-GLUCOSE [id number] 07:53:00 Test Item Value Reference Range Interpretation Comments POC-GLUCOSE METER 99 mg/dL 70-110 : TESTED A T [facility] 6720 (BEAKER) (test code = [facility] [place], 1538) [address]: Hunter Skin Diver/Techni rebeca ID = [id number] for KARLEY MANCUSO TROPONIN [id number] 06:40:00 Test Item Value Reference Range Interpretation [...] failure, acidosis, acute neurological disease, and persistent tachyarrhythmia.Hunter Skin Diver ID - CHRISTIANONTROPONIN [id number] 01:53:00 Test Item Value Reference Range Interpretation [...] failure, acidosis, acute neurological disease, and persistent tachyarrhythmia.Hunter Skin Diver ID - MICASIC METABOLIC PANEL 2019-03-20 01:52:00 Test Item Value [...] S NOT APPLICABLE FOR DIALYSIS PATIEN TS. Hunter Skin Diver ID - [id number] 01:25:00 Test Item Value Reference Range Interpretation Comments MAGNESIUM (BEAKER) (test code = 2.2 mg/dL 1.6-2.6 627) Hunter Skin Diver ID - [id number] 01:23:00 Test Item Value Reference Range Interpretation Comments PARTIAL THROMBOPLASTIN 109.9 seconds 22.5-36.0 H B.no .[id number] ok to TIME (BEAKER) (test released result. code = 760) Prior to initiating heparinCBC W/PLT COUNT & AUTO [id number] 01:02:00 Test Item Value Reference Range Interpretation [...] 0-1 PERCENT (BEAKER) (test code = 2801) Lipoprotein (a)2019-01-31 12:29:00 Test Item Value Reference Range Interpretation Comments Lipoprotein (a) (test 57 nmol/L <75 code = 9451682) KAREN (test code = KAREN) Performing Lab EZ [facility] [address] [place] [address] Heidi Novoa MD, PhD, ROBY [facility] CenterPOCT-GLUCOSE [id number] 09:17:00 Test Item Value Reference Range Interpretation Comments POC-GLUCOSE METER 161 mg/dL 70-110 H : [facility] ([facility] (test code = [place], 1538) [address]: Hunter Skin Diver/Techni rebeca ID = [id number] for DANIELE BAKER BASIC METABOLIC [id number] 07:10:00 Test Item Value Reference Range Interpretation [...] NOT APPLICABLE FOR DIALYSIS PATIEN TS. URIC [id number] 07:07:00 Test Item Value Reference Range Interpretation Comments URIC ACID (BEAKER) (test code = 9.9 mg/dL 2.6-7.2 H 773) [id number] 07:07:00 Test Item Value Reference Range Interpretation Comments MAGNESIUM (BEAKER) (test code = 2.3 mg/dL 1.6-2.6 627) [id number] 07:07:00 Test Item Value Reference Range Interpretation Comments PHOSPHORUS (BEAKER) (test code = 3.3 mg/dL 2.3-4.7 604) B-TYPE NATRIURETIC FACTOR (BNP)2019-01-30 06:44:00 Test Item Value Reference Range Interpretation Comments B-TYPE NATRIURETIC PEPTIDE (BEAKER) 365 pg/mL 0-100 H (test code = 700) CALCIUM, [id number] 06:31:00 Test Item Value Reference Range Interpretation Comments CALCIUM IONIZED (BEAKER) (test 1.08 mmol/L 1.12-1.27 L code = 698) PH, BLOOD (BEAKER) (test code = 7.41 1810) CBC W/PLT COUNT & AUTO [id number] 06:17:00 Test Item Value Reference Range Interpretation [...] PERCENT (BEAKER) (test code = 2801) POCT-GLUCOSE [id number] 21:20:00 Test Item Value Reference Range Interpretation Comments POC-GLUCOSE METER 140 mg/dL 70-110 H : TESTED A T [facility] 6720 (BEAKER) (test code = [facility], 153) 7[address]: Hunter Skin Diver/Techni rebeca ID = [id number] for Fatmata Robison CREATININE, RANDOM [id number] 19:07:00 Test Item Value Reference Range Interpretation Comments CREATININE URINE (BEAKER) (test 101.3 mg/dL code = 375) Reference Range: No NormalsPROTEIN, RANDOM [id number] 19:07:00 Test Item Value Reference Range Interpretation Comments PROTEIN, URINE (BEAKER) (test code = 24 mg/dL 0-14 H 1569) SODIUM, RANDOM [id number] 19:07:00 Test Item Value Reference Range Interpretation Comments SODIUM URINE (BEAKER) (test code = 27 meq/L 243) Reference Range: No NormalsPOCT-GLUCOSE [id number] 17:13:00 Test Item Value Reference Range Interpretation Comments POC-GLUCOSE METER 172 mg/dL 70-110 H : TESTED A T [facility] 6720 (BEAKER) (test code = [facility], 153) 52259: Hunter Skin Diver/Techni rebeca ID = [id number] for JOHNATHAN KINGSLEY URINALYSIS W/ [id number] 15:46:00 Test Item Value Reference Range Interpretation [...] 520) < /HPF SOURCE(BEAKER) (test code = 1825) BASIC METABOLIC [id number] 13:57:00 Test Item Value Reference Range Interpretation [...] S NOT APPLICABLE FOR DIALYSIS PATIEN TS. [id number] 13:56:00 Test Item Value Reference Range Interpretation Comments PHOSPHORUS (BEAKER) (test code = 2.6 mg/dL 2.3-4.7 604) [id number] 13:56:00 Test Item Value Reference Range Interpretation Comments MAGNESIUM (BEAKER) (test code = 2.4 mg/dL 1.6-2.6 627) RAD, CHEST, 1 VIEW, NON [id number] 13:55:00Reason for exam:->Fluid statusShould this be performed at the bedside?->YesFINAL REPORT AP chest Comparison exam: 01/25/2019 History provided: Fluid status Heart size magnified by projection. Lungs currently grossly clear, and vascularity normal. Chronicdeformity of the right humeral neck. Signed: Atul Malave MDReport Verified Date/Time: 01/29/2019 13:55:37 Reading Location: [facility] Diagnostic Imaging Reading Room - [facility] 1.310.12 POCT-GLUCOSE [id number] 11:49:00 Test Item Value Reference Range Interpretation Comments POC-GLUCOSE METER 273 mg/dL 70-110 H : TESTED A T [facility] 6720 (BEAKER) (test code = JODY Gipson [facility], 1538) 26196: Hunter Skin Diver/Techni rebeca ID = [id number] for Tatyana Sterling Clostridium difficile GDH [id number] 11:07:00 Test Item Value Reference Range Interpretation Comments C. Difficle Toxin Negative Negative (test code = 0267468836) C. Difficile GDH Positive Negative A C. difficil e Antigen (test code = present but toxin 3523367925) not detected. Indicates colonization wi th non-toxigenic strain or level of toxin below detectable levels. No nee d for enteric isolation. Treatment is rarely needed (only when stro ng clinical suspicion for Clostridium difficile infection) KAREN (test code = Testing performed KAREN) by [employer] Rapid Cassette Assay. For GDH, published sensitivity of the assay is 98.7% compared to cytotoxicity testing. For Toxin AB, published sensitivity is 87.8% and specificity 99.4% compared to cytotoxicity testing.Verificati on of kit performance was done by the [facility] Microbiology Lab prior to clinical use. Lab Interpretation Abnormal (test code = 46663-8) [facility] Center[facility]. DIFFICILE GDH [id number] 11:07:00 Test Item Value Reference Range Interpretation Comments CDT TOXIN (test code Negative Negative = 8064167807) CDT GDH ANTIGEN Positive Negative A C. difficile present but (test code = toxin not detec elva. 5196601997) Indicates colon ization with non-toxige alexis strain or level of tox in below detectable leve ls. No need for enteri c isolation. Sandoval atment is rarely needed ( only when strong clinical suspicion for Clostridium difficile infection) Testing performed by [employer] Rapid Cassette Assay. For GDH, published sensitivity of the assay is 98.7% compared to cytotoxicity testing. For Toxin AB, published sensitivity is 87.8% and specificity 99.4% compared to cytotoxicity testing.Verification of kit performance was done by the [facility] Microbiology Lab prior to clinical use.POCT-GLUCOSE [id number] 07:57:00 Test Item Value Reference Range Interpretation Comments POC-GLUCOSE METER 227 mg/dL 70-110 H : TESTED A T [facility] 6720 (BEAKER) (test code = [place], 1538) [address]: Hunter Skin Diver/Techni rebeca ID = [id number] for Tatyana Sterling CBC (HEMOGRAM ONLY)2019-01-29 05:39:00 [...] WBC 0-0 (BEAKER) (test code = 413) Occult blood, [id number] 22:07:00 Test Item Value Reference Range Interpretation Comments Occult blood (test code = 2335-8) Negative Negative Lab Interpretation (test code = Normal 15297-7) [facility]PO[facility] [id number] 22:07:00 Test Item Value Reference Range Interpretation Comments POC-GLUCOSE METER 229 mg/dL 70-110 H : TESTED A T [facility] 6720 (BEAKER) (test code = [place], 1538) [address]: Hunter Skin Diver/Techni rebeca ID = [id number] for FI TE, SELINA OCCULT BLOOD, [id number] 22:07:00 Test Item Value Reference Range Interpretation Comments FECAL OCCULT BLOOD (BEAKER) (test Negative Negative code = 618) Transthoracic 2D echo w/ doppler (cw/pw/color)2019-01-28 15:33:30Ejection FractionSLEH ECHO HEARTLAB MKCKESSON CPACSInterface, External Ris In - 01/28/2019 3:33 PM CSTTransthoracic Echocardiography Report (TTE) Demographics Patient Name HENRIQUE ARECHIGA Date of Study 01/28/2019 ESCOBDEO Gender Female Visit Number [id number] Race Room Number 8A11 Number Date of 1940 Referring Physician Age 78 year(s) Trouble Operator Melani Dozier [facility] Interpreting Physician XIMENA Cormier Procedure Type of Study TTE procedure:2DECHO W DOPPLER(CW/PW/COLOR) (Routine) Indications:Acute Chest Pain/ Suspected CAD.Clinical HistoryCHF;CAD;DM;HTN;R&L CATH/PCI 06/08-08/08.Height: 61 inches Weight: 77.11 kg (170 lbs) BSA: 1.76 m^2 BMI: 32.12 kg/m^2HR: 67 bpm B P: 126/51 mmHg Summary The left ventricle is [...] Study In comparison with the prior exam on12/21/2018 there are no significant changes. Signature Findings Left Ventricle The left ventricle is chamber size (by vol index) is normal (female - LVED vol - 29-61ml/m2). Mild septal hypertrophy is present. All of the LV segments are mildly hypokinetic . LVEF by Beauchamp's method of disk assessment is mildly reduced (40-44%) . Left Atrium LA size is mildly enlarged (35-41 ml/m2) . Right Ventricle The right ventricular chamber size and systolic function are within normal limits. Right Atrium RA size is normal. Aortic Valve Mild AoV cusp thickening. Mitral Valve Mild MV leaflet thickening. Mild mitral annular calcification. Mild mitral regurgitation. Tricuspid Valve TV structure is normal. Unable toestimate peak systolic PA pressure; inadequate TR velocity signal. Pulmonic Valve Normal PV structure appears normal by available views. Mild pulmonary regurgitation. Aorta Aortic root size (SInus of Valsalva [...] cm LVEDV Beauchamp's:84.31 ml LV FS: 39.2 %LVESV Beauchamp's:49.14 ml LVEF Beauchamp's: 41.7 % LVEDVI: 48 ml/m^2 LVESVI: 28 ml/m^2 LVOT Diameter: 2.07 cm LVEF: 54.2 % Aorta Ao Root S of Mary Ellen.: 2.9 cm Doppler/Quantitative Measurements Mitral Valve MV Peak E-Wave: 0.68 m/s MV Peak A-Wave: 0 m/s E/A Ratio: 526.62 Peak Gradient: 1.87 mmHg MV Main. Peak: Aortic Valve Peak Velocity: 1.4 m/s Mean Velocity: 0.98 m/s Peak Gradient: 7.85 mmHg Mean Gradient: 4.34 mmHg AV Area (continuity): 1.93 cm^2 AV VTI: 34.2 cm AV DVI: 0.57 LVOT Peak Velocity: 0.86 m/s Peak Gradient: 2.95 mmHg Mean Velocity: 0.56 m/s Mean Gradient: 1.48 mmHg LVOT Diameter: 2.07 cm LVOT VTI: 19.65 cm LVOT Area: 3.37 cm^2 LVOT SV:66.1 ml LVOT CO: 4.43 l/min LVOT CI: 2.52 l/min/m^2[facility] 2019-01-28 12:00:00 Test Item Value Reference Range Interpretation Comments POC-GLUCOSE METER 208 mg/dL 70-110 H : Notified RN/MD: (CRISTY) (test code = TESTED AT [place] [address] 1538) [facility], [address]: Hunter Skin Diver/Techni rebeca ID = [id number] for Veena Omalley [id number] 09:10:00 Test Item Value Reference Range Interpretation Comments PARTIAL THROMBOPLASTIN TIME 77.4 seconds 22.5-36.0 H ([facility] (test code = 760) POCT-GLUCOSE [id number] 08:40:00 Test Item Value Reference Range Interpretation Comments POC-GLUCOSE METER 153 mg/dL 70-110 H : TESTED A T [facility] 6720 ([facility] (test code [facility], = 1538) [address]: Hunter Skin Diver/Techni rebeca ID = [id number] for AJNETH OTT BASIC METABOLIC [id number] 05:15:00 Test Item Value Reference Range Interpretation [...] I S NOT APPLICABLE FOR DIALYSIS PATIRADHA MERA. [id number] 05:11:00 Test Item Value Reference Range Interpretation [...] 0-0 (BEAKER) (test code = 413) POCT-GLUCOSE [id number] 22:29:00 Test Item Value Reference Range Interpretation Comments POC-GLUCOSE METER 235 mg/dL 70-110 H : TESTED A T [facility] 6720 (BEAKER) (test code = [facility] [employer] [facility], 1538) [address]: Hunter Skin Diver/Techni rebeca ID = [id number] for HUGH COCHRAN [id number] 21:49:00 Test Item Value Reference Range Interpretation Comments PARTIAL THROMBOPLASTIN TIME 81.9 seconds 22.5-36.0 H (BEAKER) (test code = 760) POCT-GLUCOSE [id number] 17:50:00 Test Item Value Reference Range Interpretation Comments POC-GLUCOSE METER 236 mg/dL 70-110 H : TESTED A T [facility] 6720 (BEAKER) (test code = [facility] [employer] [facility], 1538) [address]: Hunter Skin Diver/Techni rebeca ID = [id number] for INDIO ISAACS [id number] 16:52:00 Test Item Value Reference Range Interpretation [...] INR is2.5-3.5 for patients wiht mechanical heart valves.PT/[id number] 13:41:00 Test Item Value Reference Range Interpretation [...] is2.5-3.5 for patients wiht mechanical heart valves.POCT-GLUCOSE [id number] 12:47:00 Test Item Value Reference Range Interpretation Comments POC-GLUCOSE METER 229 mg/dL 70-110 H : TESTED A T [facility] 6720 (BEAKER) (test code = [facility], 1538) [address]: Hunter Skin Diver/Techni rebeca ID = [id number] for QU EDER, INDIO POCT-GLUCOSE [id number] 09:42:00 Test Item Value Reference Range Interpretation Comments POC-GLUCOSE METER 188 mg/dL 70-110 H : TESTED A T [facility] 6720 (BEAKER) (test code = [facility], 1538) [address]: Hunter Skin Diver/Techni rebeca ID = [id number] for QU EDER, INDIO [id number] 06:24:00 Test Item Value Reference Range Interpretation Comments PARTIAL THROMBOPLASTIN TIME 86.3 seconds 22.5-36.0 H (BEAKER) (test code = 760) BASIC METABOLIC [id number] 04:52:00 Test Item Value Reference Range Interpretation [...] S NOT APPLICABLE FOR DIALYSIS PATIEN TS. [id number] 04:25:00 Test Item Value Reference Range Interpretation [...] 0-0 (BEAKER) (test code = 413) POCT-GLUCOSE [id number] 04:03:00 Test Item Value Reference Range Interpretation Comments POC-GLUCOSE METER 123 mg/dL 70-110 H : [facility] (test code = [facility] Brandan [facility], 1538) [address]: Hunter Skin Diver/Techni rebeca ID = [id number] for ANDI ZUNIGA POCT-GLUCOSE [id number] 21:41:00 Test Item Value Reference Range Interpretation Comments POC-GLUCOSE METER 293 mg/dL 70-110 H : TESTED A T [facility] 6720 ([facility]) (test code = [facility] Gipson [facility], 1538) [address]: Hunter Skin Diver/Techni rebeca ID = [id number] for ADNI ZUNIGA [id number] 19:17:00 Test Item Value Reference Range Interpretation Comments PARTIAL THROMBOPLASTIN TIME 27.4 seconds 22.5-36.0 ([facility]) (test code = 760) Prior to initiating heparinPLATELET [id number] 18:53:00 Test Item Value Reference Range Interpretation Comments PLATELET COUNT ([facility]) (test 249 K/CU MM 150-450 code = 756) POCT-GLUCOSE [id number] 13:46:00 Test Item Value Reference Range Interpretation Comments POC-GLUCOSE METER 246 mg/dL 70-110 H : Notified RN/MD: (CRISTY) (test code = TESTED AT [facility] 6720 1538) [facility], [address]: Hunter Skin Diver/Techni rebeca ID = [id number] for Veena Omalley POCT-GLUCOSE [id number] 08:33:00 Test Item Value Reference Range Interpretation Comments POC-GLUCOSE METER 124 mg/dL 70-110 H : Notified RN/MD: (CRISTY) (test code = TESTED AT [place] [address] 1538) [facility], [address]: Hunter Skin Diver/Techni rebeca ID = [id number] for Veena Omalley TROPONIN [id number] 07:02:00 Test Item Value Reference Range Interpretation Comments TROPONIN I ([facility]) (test code = 0.27 ng/mL 0.00-0.03 [facility]) Troponin I (TnI) levels must be interpreted [...] 0-0 (BEAKER) (test code = 413) POCT-GLUCOSE [id number] 05:54:00 Test Item Value Reference Range Interpretation Comments POC-GLUCOSE METER 94 mg/dL 70-110 : TESTED A T [facility] 6720 (BEAKER) (test code = [place], 1538) [address]: Hunter Skin Diver/Techni rebeca ID = [id number] for JR DONALDWU RAD, CHEST, 1 VIEW, NON [id number] 03:34:00Reason for exam:->chest painShould this be performed [...] No acute intrathoracic abnormality. Signed: Yuan Ying MDReport Verified Date/Time: 01/26/2019 03:34:50 TROPONIColin [id number] 00:11:00 Test Item Value Reference Range Interpretation [...] acute neurological disease, and persistent tachyarrhythmia.COMPREHENSIVE METABOLIC [id number] 00:09:00 Test Item Value Reference Range Interpretation [...] pg/mL 0-100 H (test code = 700) [id number] 23:56:00 Test Item Value Reference Range Interpretation Comments MAGNESIUM (BEAKER) 2.3 mg/dL 1.6-2.6 Specimen slightly (test code = 627) hemolyzed [id number] 23:53:00 Test Item Value Reference Range Interpretation Comments PARTIAL THROMBOPLASTIN TIME 20.7 seconds 22.5-36.0 L (BEAKER) (test code = 760) Prior to initiating heparinProthrombin time/[id number] 23:41:00 Test Item Value Reference Range Interpretation Comments Protime (test code = 13.2 11.9- 14.2 5902-2) seconds INR (test code = 1.1 <=5.9 6301-6) KAREN (test code = KAREN) Effective 07/18/2018: PT Reference Range ChangeNew: 11.9-14.2 Previous: 11.7-14.7 RECOMMENDED COUMADIN/WARFARIN INR THERAPY RANGESSTANDARD DOSE: 2.0-3.0 Includes: PROPHYLAXIS for venous thrombosis, systemic embolization; TREATMENT for venous thrombosis and/or pulmonary embolus.HIGH RISK: Target INR is 2.5-3.5 for patients wiht mechanical heart valves. Prior to initiating heparin Lab Interpretation Normal (test code = 99929-6) [facility] CenterPROTHROMBIN TIME/[id number] 23:41:00 Test Item Value Reference Range Interpretation [...] per sliding scaleCBC W/PLT COUNT & AUTO [id number] 23:33:00 Test Item Value Reference Range Interpretation [...] PERCENT (BEAKER) (test code = 2801) POCT-GLUCOSE [id number] 22:21:00 Test Item Value Reference Range Interpretation Comments POC-GLUCOSE METER 210 mg/dL 70-110 H : TESTED A T [facility] 6720 (BEAKER) (test code = [facility], 1538) [address]: Hunter Skin Diver/Techni rebeca ID = [id number] for RO SS, SYNTERIA POCT-GLUCOSE [id number] 12:57:00 Test Item Value Reference Range Interpretation Comments POC-GLUCOSE METER 318 mg/dL 70-110 H : TESTED A T [facility] 6720 (BEAKER) (test code [facility], = 1538) [address]: Hunter Skin Diver/Techni rebeca ID = [id number] for MCMU CHINYERE CABANINE POCT-GLUCOSE [id number] 08:08:00 Test Item Value Reference Range Interpretation Comments POC-GLUCOSE METER 263 mg/dL 70-110 H : TESTED A T [facility] 6720 (BEAKER) (test code = [place], 1538) [address]: Hunter Skin Diver/Techni rebeca ID = [id number] for CHACORTADevinMARILYN NOVA CBC W/PLT COUNT & AUTO [id number] 05:21:00 Test Item Value Reference Range Interpretation [...] (BEAKER) (test code = 2801) BASIC METABOLIC [id number] 05:18:00 Test Item Value Reference Range Interpretation [...] S NOT APPLICABLE FOR DIALYSIS PATIEN TS. [id number] 05:17:00 Test Item Value Reference Range Interpretation Comments PHOSPHORUS (BEAKER) (test code = 4.4 mg/dL 2.3-4.7 604) [id number] 05:17:00 Test Item Value Reference Range Interpretation Comments MAGNESIUM (BEAKER) (test code = 2.0 mg/dL 1.6-2.6 627) B-TYPE NATRIURETIC FACTOR (BNP)2018-12-25 04:55:00 Test Item Value Reference Range Interpretation Comments B-TYPE NATRIURETIC PEPTIDE (BEAKER) 775 pg/mL 0-100 H (test code = 700) CALCIUM, [id number] 04:45:00 Test Item Value Reference Range Interpretation Comments CALCIUM IONIZED (BEAKER) (test 1.16 mmol/L 1.12-1.27 code = 698) PH, BLOOD ([facility]) (test code = 7.32 1810) POCT-GLUCOSE [id number] 23:15:00 Test Item Value Reference Range Interpretation Comments POC-GLUCOSE METER 280 mg/dL 70-110 H : Notified RN/MD: ([facility]) (test code = TESTED AT [place] [address] 1538) [facility], [address]: Hunter Skin Diver/Techni rebeca ID = [id number] for KEZIA GILMORE POCT-GLUCOSE [id number] 23:13:00 Test Item Value Reference Range Interpretation Comments POC-GLUCOSE METER 179 mg/dL 70-110 H : TESTED A T [place] [address] ([facility]) (test code = [facility], 1538) [address]: Hunter Skin Diver/Techni rebeca ID = [id number] for KEZIA GILMORE [id number] 22:12:00 Test Item Value Reference Range Interpretation Comments ACTIVATED CLOTTING TIME 147 sec Refe rence Range: (BEAKER) (test code = 74-137 seconds, 441) Baseline/TESTED AT [address] [address] [id number] 17:58:00 Test Item Value Reference Range Interpretation Comments ACTIVATED CLOTTING TIME 257 sec Refe rence Range: (BEAKER) (test code = 74-137 seconds, 441) Baseline/TESTED AT [address] [address] [id number] 17:57:00 Test Item Value Reference Range Interpretation Comments ACTIVATED CLOTTING TIME 252 sec Refe rence Range: (BEAKER) (test code = 74-137 seconds, 441) Baseline/TESTED AT [address] [address] 0 POCT-GLUCOSE [id number] 12:58:00 Test Item Value Reference Range Interpretation Comments POC-GLUCOSE METER 150 mg/dL 70-110 H : TESTED A T [place] [address] ([facility]) (test code = [facility], 1538) [address]: Hunter Skin Diver/Techni rebeca ID = [id number] for MUKESH GOODRICH [id number] 08:41:00 Test Item Value Reference Range Interpretation Comments PARTIAL THROMBOPLASTIN TIME 69.4 seconds 22.5-36.0 H (BEAKER) (test code = 760) POCT-GLUCOSE [id number] 08:37:00 Test Item Value Reference Range Interpretation Comments POC-GLUCOSE METER 115 mg/dL 70-110 H : Notified RN/MD: (BEAKER) (test code = TESTED AT [facility] 6784 5526) [facility], [address]: Hunter Skin Diver/Techni rebeca ID = [id number] for Adilene Madrigal COMPREHENSIVE METABOLIC [id number] 01:52:00 Test Item Value Reference Range Interpretation [...] S NOT APPLICABLE FOR DIALYSIS PATIEN SAMARIA. [id number] 01:29:00 Test Item Value Reference Range Interpretation Comments PARTIAL THROMBOPLASTIN TIME 51.5 seconds 22.5-36.0 H (BEAKER) (test code = 760) POCT-GLUCOSE [id number] 18:32:00 Test Item Value Reference Range Interpretation Comments POC-GLUCOSE METER 185 mg/dL 70-110 H : TESTED A T [facility] 6720 (BEAKER) (test code = [facility], 1538) [address]: Hunter Skin Diver/Techni rebeca ID = [id number] for Fr campos, Akash POCT-GLUCOSE [id number] 18:31:00 Test Item Value Reference Range Interpretation Comments POC-GLUCOSE METER 210 mg/dL 70-110 H : TESTED A T [facility] 6720 (BEAKER) (test code = [facility], 1538) [address]: Hunter Skin Diver/Techni rebeca ID = [id number] for Fr campos, Akash POCT-GLUCOSE [id number] 18:29:00 Test Item Value Reference Range Interpretation Comments POC-GLUCOSE METER 150 mg/dL 70-110 H : TESTED A T [facility] 6720 (BEAKER) (test code = [facility], 1538) [address]: Hunter Skin Diver/Techni rebeca ID = [id number] for LIZ PRIEST [id number] 16:30:00 Test Item Value Reference Range Interpretation Comments PARTIAL THROMBOPLASTIN TIME 98.0 seconds 22.5-36.0 H (BEAKER) (test code = 760) TROPONIN [id number] 09:11:00 Test Item Value Reference Range Interpretation Comments TROPONIN I (BEAKER) (test code = 0.97 ng/mL 0.00-0.03 [facility]) Troponin I (TnI) levels must be interpreted [...] failure, acidosis, acute neurological disease, and persistent tachyarrhythmia.[id number] 07:52:00 Test Item Value Reference Range Interpretation Comments PHOSPHORUS (BEAKER) (test code = 3.9 mg/dL 2.3-4.7 604) [id number] 07:52:00 Test Item Value Reference Range Interpretation Comments MAGNESIUM (BEAKER) (test code = 2.0 mg/dL 1.6-2.6 627) COMPREHENSIVE METABOLIC [id number] 07:52:00 Test Item Value Reference Range Interpretation [...] NOT APPLICABLE FOR DIALYSIS PATIEN TS. CALCIUM, [id number] 07:37:00 Test Item Value Reference Range Interpretation Comments CALCIUM IONIZED (BEAKER) (test 1.14 mmol/L 1.12-1.27 code = 698) PH, BLOOD (BEAKER) (test code = 7.40 1810) B-TYPE NATRIURETIC FACTOR (BNP)2018-12-23 06:42:00 Test Item Value Reference Range Interpretation Comments B-TYPE NATRIURETIC PEPTIDE (BEAKER) 190 pg/mL 0-100 H (test code = 700) [id number] 05:48:00 Test Item Value Reference Range Interpretation Comments PARTIAL THROMBOPLASTIN TIME 90.8 seconds 22.5-36.0 H (BEAKER) (test code = 760) CBC W/PLT COUNT & AUTO [id number] 05:35:00 Test Item Value Reference Range Interpretation [...] PERCENT (BEAKER) (test code = 2801) POCT-GLUCOSE [id number] 21:16:00 Test Item Value Reference Range Interpretation Comments POC-GLUCOSE METER 200 mg/dL 70-110 H : TESTED A T [facility] 6720 ([employer]) (test code [facility], = 1538) [address]: Hunter Skin Diver/Techni rebeca ID = [id number] for GISSELLE OLMSTEAD [id number] 20:08:00 Test Item Value Reference Range Interpretation Comments PARTIAL THROMBOPLASTIN TIME 51.9 seconds 22.5-36.0 H (BEAKER) (test code = 760) POCT-GLUCOSE [id number] 17:37:00 Test Item Value Reference Range Interpretation Comments POC-GLUCOSE METER 211 mg/dL 70-110 H : TESTED A T [facility] 6720 ([employer]) (test code = [facility] [employer] [facility], 1538) [address]: Hunter Skin Diver/Techni rebeca ID = [id number] for Deepa Trivedi [id number] 13:26:00 Test Item Value Reference Range Interpretation Comments PARTIAL THROMBOPLASTIN TIME 65.2 seconds 22.5-36.0 H (BEAKER) (test code = 760) POCT-GLUCOSE [id number] 13:18:00 Test Item Value Reference Range Interpretation Comments POC-GLUCOSE METER 194 mg/dL 70-110 H : TESTED A T [facility] 6720 ([employer]) (test code = [facility], 1538) [address]: Hunter Skin Diver/Techni rebeca ID = [id number] for Deepa Trivedi HEMOGLOBIN [id number] 10:07:00 Test Item Value Reference Range Interpretation Comments HEMOGLOBIN A1C (BEAKER) (test code = 10.2 % 4.3-6.1 H 368) [id number] 09:05:00 Test Item Value Reference Range Interpretation Comments Ferritin (test code = 2276-4) 195 ng/mL 5-275 Lab Interpretation (test code = Normal 08304-2) [facility]IN2019-[facility] 09:05:00 Test Item Value Reference Range Interpretation Comments FERRITIN (BEAKER) (test code = 361) 195 ng/mL 5-275 POCT-GLUCOSE [id number] 08:37:00 Test Item Value Reference Range Interpretation Comments POC-GLUCOSE METER 202 mg/dL 70-110 H : TESTED A T [facility] 6720 (BEAKER) (test code = JODY Gipson [facility], 1538) [address]: Hunter Skin Diver/Techni rebeca ID = [id number] for CLIFF JACOBO CALCIUM, [id number] 06:55:00 Test Item Value Reference Range Interpretation Comments CALCIUM IONIZED (BEAKER) (test 1.11 mmol/L 1.12-1.27 L code = 698) PH, BLOOD (BEAKER) (test code = 7.41 1810) Iron, TIBC, % sat. (without ferritin)2018-12-22 06:37:00 Test Item Value Reference Range Interpretation Comments Iron (test code = 2498-4) 85.0 ug/dL 40-160 TIBC (test code = 2500-7) 226 ug/dL 250-450 L Iron % Saturation (test code = 38 % 20-55 2502-3) Lab Interpretation (test code = Abnormal 60806-9) [facility], [facility], % SAT. (WITHOUT FERRITIN)2018-12-22 06:37:00 Test Item Value Reference Range Interpretation Comments IRON (BEAKER) (test code = 547) 85.0 ug/dL 40.0-160.0 TOTAL IRON BINDING CAPACITY 226 ug/dL 250-450 L (BEAKER) (test code = 769) IRON % SATURATION (2) (BEAKER) 38 % 20-55 (test code = 2590) TROPONIN [id number] 05:40:00 Test Item Value Reference Range Interpretation [...] acute neurological disease, and persistent tachyarrhythmia.COMPREHENSIVE METABOLIC [id number] 05:39:00 Test Item Value Reference Range Interpretation [...] pg/mL 0-100 H (test code = 700) [id number] 05:32:00 Test Item Value Reference Range Interpretation Comments PHOSPHORUS (BEAKER) (test code = 4.8 mg/dL 2.3-4.7 H 604) [id number] 05:32:00 Test Item Value Reference Range Interpretation Comments MAGNESIUM (BEAKER) (test code = 2.0 mg/dL 1.6-2.6 627) [id number] 05:19:00 Test Item Value Reference Range Interpretation Comments PARTIAL THROMBOPLASTIN TIME 92.9 seconds 22.5-36.0 H (BEAKER) (test code = 760) Reticulocyte [id number] 05:11:00 Test Item Value Reference Range Interpretation Comments % Retic (test code = 97529-0) 2.0 % 0.5-1.7 H Lab Interpretation (test code = Abnormal 25430-0) [facility] CenterRETICULOCYTE [id number] 05:11:00 Test Item Value Reference Range Interpretation Comments RETICULOCYTE COUNT PCT (BEAKER) (test 2.0 % 0.5-1.7 H code = 575) CBC W/PLT COUNT & AUTO [id number] 05:11:00 Test Item Value Reference Range Interpretation [...] (BEAKER) (test code = 2801) U/S, RENAL, [id number] 01:46:00Reason for exam:->AKIShould this be performed at [...] Ying MDReport Verified Date/Time: 12/22/2018 01:46:35 POCT-GLUCOSE [id number] 22:07:00 Test Item Value Reference Range Interpretation Comments POC-GLUCOSE METER 105 mg/dL 70-110 : TESTED A T [facility] 6720 (BEAKER) (test code = [facility], 1538) [address]: Hunter Skin Diver/Techni rebeca ID = [id number] for Iza Hamilton [id number] 20:19:00 Test Item Value Reference Range Interpretation Comments PARTIAL THROMBOPLASTIN TIME 75.7 seconds 22.5-36.0 H (BEAKER) (test code = 760) POCT-GLUCOSE [id number] 17:42:00 Test Item Value Reference Range Interpretation Comments POC-GLUCOSE METER 305 mg/dL 70-110 H : TESTED A T [facility] 6720 (BEAKER) (test code = [facility], 1538) [address]: Hunter Skin Diver/Techni rebeca ID = [id number] for BE RNABE, CLIFF URINALYSIS W/ [id number] 14:46:00 Test Item Value Reference Range Interpretation [...] SOURCE(BEAKER) (test code = 2795) CREATININE, RANDOM [id number] 14:45:00 Test Item Value Reference Range Interpretation Comments CREATININE URINE (BEAKER) (test 123.0 mg/dL code = 375) Reference Range: No [id number] 14:24:00 Test Item Value Reference Range Interpretation Comments PARTIAL THROMBOPLASTIN TIME 67.3 seconds 22.5-36.0 H (BEAKER) (test code = 760) PROTEIN, RANDOM [id number] 14:23:00 Test Item Value Reference Range Interpretation Comments PROTEIN, URINE (BEAKER) (test code = 20 mg/dL 0-14 H 1569) SODIUM, RANDOM [id number] 14:23:00 Test Item Value Reference Range Interpretation Comments SODIUM URINE (BEAKER) (test code = 26 meq/L 243) Reference Range: No Knptzrp3P Echo W/Doppler(CW/PW/Color)2018-12-21 12:36:19 Ejection FractionSLEH ECHO HEARTLAB MKCKESSON CPACSInterface, External Ris In - 12/21/2018 12:36 PM CDTTransthoracic Echocardiography Report (TTE) Demographics Patient Name HENRIQUE ARECHIGA Date of Study 12/21/2018 ESCBRENDADEO Gender Female Visit Number [id number] Race Room Number 6105 Number Date of 1940 [facility] Physician Age 78 year(s) Trouble Operator ALEJANDRO Cutler, RDCS,RVT,RDMS All Around Gear Machine Operator Nader Finley Interpreting Kash Carr MD Physician Procedure Type of Study TTE pro cedure:2DECHO W DOPPLER(CW/PW/COLOR) (STAT) Indications:Acute Chest Pain/ Suspected CAD.Clinical HistoryCAD, CHF, DM, Rt Cath PCI 08/08Height: 61 inches Weight: 70.31 kg (155 lbs) BSA: 1.7 m^2 BMI: 29.29 kg/m^2HR: 78 bpm BP: 160/80 mmHg Summary 2. Normal LV size. LV function is milldy reduced. LVEF is 45-49% 2. Diastology: Grade 1 diastolic dysfunction 3. Normal RV size and function 4. No significant VHD 5. Unable to estimate PASP 6. No pericardial effusion Previous Study In comparison with the prior exam 11/11/2018 the following changes are noted: mildly depressed LVEF . Signature Findings Left Ventricle The left ventricle is chamber size (by vol index) is normal (female - LVED vol - 29-61ml/m2). Mild concentric LV hypertrophy. All of the LV segments are mildly hypokinetic . LV diastolic function is indeterminate. LVEF by Beauchamp's method of disk ass essment is mildly reduced (45-49%) . Left Atrium LA size is moderately enlarged . Right Ventricle Normal right ventricle structure and function. Right Atrium Normal right atrium. Aortic Valve Mild AoV cusp thickening. Mitral Valve Moderate MV leaflet thickening. Mild mitral annular calcification. Mild to moderate mitral regurgitation. Tricuspid Valve A trace of tricuspid regurgitation. Unable to estimate peak systolic PA pressure; inadequate TR velocity signal. Pulmonic Valve Normal PV [...] DVI: 0.69 LVOT Peak Velocity: 0.8 m/s Peak Gradient: 2.53 mmHg Mean Velocity: 0.58 m/s Mean Gradient: 1.5 mmHg LVOT Diameter: 2.02 cm LVOT VTI: 17.9 cm LVOT Area: 3.2 cm^2 LVOT SV:57.34 ml LVOT CO: 4.47 l/min LVOT CI: 2.63 l/min/m^2[facility] HospitalTROP[facility]OLVIA [id number] 12:25:00 Test Item Value Reference Range Interpretation Comments TROPONIN I (BEAKER) (test code = 2.12 ng/mL 0.00-0.03 [facility]) Troponin I (TnI) levels must be interpreted [...] acidosis, acute neurological disease, and persistent tachyarrhythmia.POCT-GLUCOSE [id number] 10:12:00 Test Item Value Reference Range Interpretation Comments POC-GLUCOSE METER 177 mg/dL 70-110 H : TESTED A T [facility] 6720 (CRISTY) (test code = [place], 1538) [address]: Hunter Skin Diver/Techni rebeca ID = [id number] for CLIFF JACOBO [id number] 07:55:00 Test Item Value Reference Range Interpretation Comments PROTIME (CRISTY) (test code = 14.1 seconds 11.9-14.2 759) INR (CRISTY) (test code = 370) 1.2 <=5.9 PARTIAL THROMBOPLASTIN TIME 55.3 seconds 22.5-36.0 H (CRISTY) (test code = 760) Effective 07/18/2018: PT Reference Range ChangeNew: 11.9-14.2 Previous: 11.7- 14.7RECOMMENDED COUMADIN/WARFARIN INR THERAPY RANGESSTANDARD DOSE: 2.0-3.0 Includes: PROPHYLAXIS for venous thrombosis, systemic embolization; TREATMENT for venous thrombosis and/or pulmonary embolus.HIGH RISK: Target INR is2.5-3.5 for patients wiht mechanical heart valves.[id number] 05:00:00 Test Item Value Reference Range Interpretation Comments PARTIAL THROMBOPLASTIN TIME 132.7 seconds 22.5-36.0 H (CRISTY) (test code = 760) 6 hours after starting heparin infusion and as indicated per sliding scale TROPONIN [id number] 04:38:00 Test Item Value Reference Range Interpretation Comments TROPONIN I (CRISTY) (test code = 2.37 ng/mL 0.00-0.03 397) [...] acute neurological disease, and persistent tachyarrhythmia.BASIC METABOLIC [id number] 04:37:00 Test Item Value Reference Range Interpretation [...] 0-0 (BEAKER) (test code = 413) TROPONIN [id number] 01:13:00 Test Item Value Reference Range Interpretation Comments TROPONIN I (CRISTY) (test code = 2.09 ng/mL 0.00-0.03 HH [...] acidosis, acute neurological disease, and persistent tachyarrhythmia.POCT-GLUCOSE [id number] 00:48:00 Test Item Value Reference Range Interpretation Comments POC-GLUCOSE METER 226 mg/dL 70-110 H : TESTED A T [facility] 6720 (CRISTY) (test code = JODY Gipson [facility], 1538) [address]: Hunter Skin Diver/Techni rebeca ID = [id number] for TISHA BISHOP LU RAD, CHEST, 1 VIEW, NON [id number] 21:25:00Reason for exam:->chest painShould this be performed [...] humeral heads are redemonstrated. Signed: Wilson Valdez Verified Date/Time:12/20/2018 21:25:44 TROPONIN [id number] 21:11:00 Test Item Value Reference Range Interpretation Comments TROPONIN I (BEAKER) (test code = 1.33 ng/mL 0.00-0.03 HH 397) Troponin I (TnI) [...] (BEAKER) (test code = 700) COMPREHENSIVE METABOLIC [id number] 21:05:00 Test Item Value Reference Range Interpretation [...] S NOT APPLICABLE FOR DIALYSIS PATIEN SAMARIA. [id number] 21:02:00 Test Item Value Reference Range Interpretation Comments MAGNESIUM (BEAKER) (test code = 2.0 mg/dL 1.6-2.6 627) [id number] 20:58:00 Test Item Value Reference Range Interpretation [...] mechanical heart valves.CBC W/PLT COUNT & AUTO [id number] 20:46:00 Test Item Value Reference Range Interpretation [...] 0-1 PERCENT (BEAKER) (test code = 2801) CRITICAL [id number] 20:19:22HaPapito manning MD 12/26/2018 3:29 PMCritical CarePerformed by: Papito Augustine MDAuthorized by: Puneet Snider MD Total critical care time: 45 minutesCritical care time was exclusive of separately billable procedures and treating other patients and teaching time.Critical care was necessary to treat or prevent imminent or life- threatening deterioration of the following conditions: ACS.Critical care was time spent personally by me on the following activities: blood draw for specimen s, discussions with consultants, evaluation of patient's response to treatment, obtaining history from patient or surrogate, ordering and review of laboratory studies, pulse oximetry, review of old charts, re-evaluation of patient's condition, ordering and review of radiographic studies, ordering and performing treatments and interventions, examination of patient, development of treatment plan with patient or surrogate and interpretation of cardiac output measurements.[facility] CenterTreadmill tolerance(Non-Nuclear Treadmill)2018-11-23 15:05:04Interface, External Ris In - 11/23/2018 3:05 PM CDTProtocol Name Abel Time In Exercise Phase00:01:00 Max. Systolic BP 170 mmHgMax Diastolic BP 55 mmHgMax Heart Rate 105 BPMMax Predicted Heart Rate 142 BPMReason For Termination Predetermined end point Reason for Test Chest Pain Known Coronary Artery DiseaseTarget HR Formula (220 - Age)*100% Arrhythmias ventricular premature beats Resting ECG Normal Sinus Rhythm,ST depression inferolateral l ST Changes ST DEPRESSION <1mmFlat SlopingOverallImpression Indeterminate due to pharmacological stress Chest Pain CHEST TIGHTNESS HR Response To Exercise BP Response To Exercise asa,lipitor,carvedilolplavix,heparin gtt,nitroConfirmed by fellow Radha Clay ([id number]) on 11/12/2018 1:04:52 PMConfirmed by MD MARTA, INDRA ([id number]) on 11/23/2018 3:05:01PMKaiser Walnut Creek Medical CenterPOCT-GLUCOSE [id number] 11:57:00 Test Item Value Reference Range Interpretation Comments POC-GLUCOSE METER 377 mg/dL 70-110 H TESTED AT [facility] 6720 ([facility]) (test code = [facility] [place] Gipson [facility] 1538) [address] POCT-GLUCOSE [id number] 09:11:00 Test Item Value Reference Range Interpretation Comments POC-GLUCOSE METER 95 mg/dL 70-110 TESTED AT [place] [address] ([facility]) (test code = [facility] [address] 1538) POCT-GLUCOSE [id number] 06:53:00 Test Item Value Reference Range Interpretation Comments POC-GLUCOSE METER 288 mg/dL 70-110 H TESTED AT [place] [id number] ([facility]) (test code = [facility] 1538) [address] COMPREHENSIVE METABOLIC [id number] 01:54:00 Test Item Value Reference Range Interpretation Comments TOTAL PROTEIN 6.1 gm/dL 6.0-8.3 Specimen sligh tly ([facility]) (test code = hemoly zed 770) ALBUMIN [...] S NOT APPLICABLE FOR DIALYSIS PATIEN TS. [id number] 01:49:00 Test Item Value Reference Range Interpretation Comments ACTIVATED CLOTTING TIME 142 sec Refe rence Range: (BEAKER) (test code = 74-137 seconds, 441) Baseline/TESTED AT [facility] 6720 [facility] [place] [address] 0 B-TYPE NATRIURETIC FACTOR (BNP)2018-11-13 01:42:00 Test Item Value Reference Range Interpretation Comments B-TYPE NATRIURETIC PEPTIDE 1151 pg/mL 0-100 H (BEAKER) (test code = 700) URINALYSIS W/ [id number] 01:40:00 Test Item Value Reference Range Interpretation [...] code = 516) SOURCE(BEAKER) (test code = 6615) [id number] 01:36:00 Test Item Value Reference Range Interpretation Comments MAGNESIUM (BEAKER) 2.0 mg/dL 1.6-2.6 Specimen slightly (test code = 627) hemolyzed [id number] 01:36:00 Test Item Value Reference Range Interpretation Comments PHOSPHORUS (BEAKER) 4.4 mg/dL 2.3-4.7 Specimen slightly (test code = 604) hemolyzed CBC W/PLT COUNT & AUTO [id number] 01:24:00 Test Item Value Reference Range Interpretation [...] PERCENT (BEAKER) (test code = 2801) CALCIUM, [id number] 01:16:00 Test Item Value Reference Range Interpretation Comments CALCIUM IONIZED (BEAKER) (test 1.10 mmol/L 1.12-1.27 L code = 698) PH, BLOOD (BEAKER) (test code = 7.32 1810) [id number] 23:34:00 Test Item Value Reference Range Interpretation Comments ACTIVATED CLOTTING TIME 164 sec Refe rence Range: (BEOJ) (test code = 74-137 seconds, 441) Baseline/TESTED AT [address] [address] [id number] 21:52:00 Test Item Value Reference Range Interpretation Comments ACTIVATED CLOTTING TIME 191 sec Refe rence Range: (BEOJ) (test code = 74-137 seconds, 441) Baseline/TESTED AT [address] [address] 0 POCT-GLUCOSE [id number] 21:33:00 Test Item Value Reference Range Interpretation Comments POC-GLUCOSE METER 294 mg/dL 70-110 H TESTED AT [place] [address] ([facility]) (test code = JOSEPHWY Brandan [facility] 1538) [address] C. DIFFICILE GDH [id number] 20:08:00 Test Item Value Reference Range Interpretation Comments CDT TOXIN (test code Negative Negative = [id number]) CDT GDH ANTIGEN Positive Negative A C. difficile present but (test code = toxin not detec elva. [id number]) Indicates colon ization with non-toxige alexis strain [...] of kit performance was done by the [facility] Microbiology Lab prior to clinical use.[id number] 17:58:00 Test Item Value Reference Range Interpretation Comments ACTIVATED CLOTTING TIME 290 sec Refe rence Range: (BEAKER) (test code = 74-137 seconds, 441) Baseline/TESTED AT [address] [address] [id number] 16:57:00 Test Item Value Reference Range Interpretation Comments ACTIVATED CLOTTING TIME 263 sec Refe rence Range: (BEAKER) (test code = 74-137 seconds, 441) Baseline/TESTED AT [address] [address] 0 [id number] 16:20:00 Test Item Value Reference Range Interpretation Comments ACTIVATED CLOTTING TIME 252 sec Refe rence Range: (BEAKER) (test code = 74-137 seconds, 441) Baseline/TESTED AT [facility] 6720 JOSEPH GARDUNO [facility] [address] 0 PET, CARDIAC PERFUSION MULTIPLE STUDIES, REST AND [id number] 15:26:00 Reason for exam:->eval chest pain, ischemiaFINAL REPORT PROCEDURE: MYOCARDIAL PERFUSION PET IMAGING (Rest/Stress)CPT CODE: 09164 INDICATION: Evaluate extent of known CAD, chest [...] rest.Symptoms: Chest discomfort, nausea, fatigue (Treatment was [id number] IV).Perfusion: There is an absence of perfusionin [...] MDReport Verified Date/Time: 11/12/2018 15:26:40 Reading Location: [address] P[address] Reading Room NM myocardial perfusion PET (rest and stress)2018-11-12 15:26:00Interface, External Ris In - 11/12/2018 3:28 PM CDTFINAL REPORT PROCEDURE: MYOCARDIAL PERFUSION PET IMAGING (Rest/Stress)CPT CODE: 62636 INDICATION: Evaluate extent of known CAD, chest [...] CT imaging was performed for attenuation correction. 40.1mCi of Rb-82 chloride was injected intravenously at [...] less than [address] depression in inferolateralleads, unchanged from rest.Symptoms: Chest discomfort, nausea, fatigue (Treatment was [id number] IV).Perfusion: There is an absence of perfusion in the apical inferior segment. There is a marked severity perfusion defect of the basal to apical anterior and apical septal segments. There is a moderate severity perfusion defect of the basal to mid inferior segments, basal to mid inferolateral, and apical lateral segments.Wall Motion: Severe basal to apical anterior hypokinesis, the remaining segments show moderate hypokinesis. (LVEF 37%).LV Volume: Not significantly changed from rest. IMPRESSION:1. Abnormal study.2. Abnormal myocardial perfusion. There is a large size, marked severity, mostlyreversible perfusion abnormality in the anterior, apical, inferior and lateral LV concerning for multivessel disease.3. Severely depressed resting LVEF of 34%, which does not deteriorate with pharmacologic stress.4. Normal extracardiac tracer distribution.5. There is no prior study for comparison. Sign ed: Marcus Sultana MDReport Verified Date/Time: 11/12/2018 15:26:40 Reading Location: [address] Reading Room [facility] [id number] 10:22:00 Test Item Value Reference Range Interpretation Comments PARTIAL THROMBOPLASTIN TIME 90.3 seconds 22.5-36.0 H ([facility]) (test code = 760) HEMOGLOBIN [id number] 09:39:00 Test Item Value Reference Range Interpretation Comments HEMOGLOBIN A1C ([facility]) (test code = 12.0 % 4.3-6.1 H 368) POCT-GLUCOSE [id number] 08:37:00 Test Item Value Reference Range Interpretation Comments POC-GLUCOSE METER 281 mg/dL 70-110 H TESTED AT [facility] 6720 (BEAKER) (test code = [place] 1538) [address] [id number] 05:54:00 Test Item Value Reference Range Interpretation Comments PARTIAL THROMBOPLASTIN TIME 135.4 seconds 22.5-36.0 H (BEAKER) (test code = 760) CALCIUM, [id number] 05:31:00 Test Item Value Reference Range Interpretation Comments CALCIUM IONIZED (BEAKER) (test 1.10 mmol/L 1.12-1.27 L code = 698) PH, BLOOD (BEAKER) (test code = 7.39 1810) COMPREHENSIVE METABOLIC [id number] 04:56:00 Test Item Value Reference Range Interpretation [...] S NOT APPLICABLE FOR DIALYSIS PATIEN TS. [id number] 04:52:00 Test Item Value Reference Range Interpretation Comments MAGNESIUM (BEAKER) 2.0 mg/dL 1.6-2.6 Specimen slightly (test code = 627) hemolyzed [id number] 04:52:00 Test Item Value Reference Range Interpretation Comments PHOSPHORUS (BEAKER) 3.5 mg/dL 2.3-4.7 Specimen slightly (test code = 604) hemolyzed LIPID [id number] 04:52:00 Test Item Value Reference Range Interpretation [...] Very High >=190CBC W/PLT COUNT & AUTO [id number] 04:33:00 Test Item Value Reference Range Interpretation [...] % 0-1 PERCENT (BEAKER) (test code = 2806) [id number] 22:22:00 Test Item Value Reference Range Interpretation Comments PARTIAL THROMBOPLASTIN TIME 86.6 seconds 22.5-36.0 H (BEAKER) (test code = 760) POCT-GLUCOSE [id number] 17:14:00 Test Item Value Reference Range Interpretation Comments POC-GLUCOSE METER 158 mg/dL 70-110 H TESTED AT [facility] 6720 (BEAKER) (test code = [place] 4826) [address] Transthoracic 2D echo w/ doppler (cw/pw/color)2018-11-11 16:06:08Ejection FractionSLEH ECHO HEARTLAB MKCKESSON CPACSInterface, External Ris In - 11/11/2018 4:06 PM CDTTransthoracic Echocardiography Report (TTE) Demographics Patient Name HENRIQUE ARECHIGA Date of Study 11/11/2018 RANDEE Gender Female Visit Number [id number] Race Room Number 6102 Number Date of 1940 [facility] Age 78 year(s) Trouble Operator Sly Sims CS All Around Gear Machine Operator Amber Kaplan [facility] Interpreting Physician XIMENA Cormier Procedure Type of Study TTE procedure:2DECHO W DOPPLER(CW/PW/COLOR) (Routine) Indications:Acute Chest Pain/ Suspected CAD.Clinical HistoryCongestive Heart FailureCoronary Artery DiseaseDiabetesHypertension08/07/18 R & L Cath / Coronary Angios / PCIHGB 14HCT 43.4 %Height: 61 inches Weight: 70.76 kg (156 lbs) BSA: 1.7 m^2 BMI: 29.48 kg/m^2HR:69 bpm BP: 96/84 mmHg Summary The left ventricle is chamber size (by vol index) is normal (female - LVED vol - 29-61ml/m2). All of the LV segments contract normally . LVEF by Beauchamp's method of disk assessment is normal (55- 60%) . Grade 1 diastolic dysfunction (impaired relaxation and low-normal LA pr essure). Unable to estimate peak systolic PA pressure; inadequate TR velocity signal. No pericardialeffusion is visualized. Previous Study In comparison with the prior exam 08/15/2018 the following changes are noted: left ventricular systolic function has improved . Signature Findings Technical Quality: Technically adequate exam. Left Ventricle The left ventricle ischamber size (by vol index) is normal (female - LVED vol - 29-61ml/m2). No evidence of LV hypertrophy. All of the LV segments contract normally . Global LV systolic function normal . LVEF by Beauchamp's method of disk assessment is normal (55-60%) . Grade 1 diastolic dysfunction (impaired relaxation and low-normal LA pressure). Consider IV ultrasound enhancing agent for improved endocardial border detection. Left Atrium LA size is mildly enlarged (35-41 ml/m2) . Right Ventricle RV chamber size appears normal by limited views . Global RV systolic function is normal . Right Atrium RA size is normal. Aortic Valve Mild AoV cusp calcification. No evidence of aortic regurgitation. Mitral Valve Mild mitral annular calcification. Mild MV leaflet calcification. Trace mitral regurgitation. Tricuspid Valve TV structure is normal. A trace of tricuspid regurgitation. Unable to estimate peak systolic PA pressure; inadequate TR velocity signal. Pulmonic Valve Normal PV [...] Mitral Valve MV Peak E-Wave: 0.97 m/s MV Peak A-Wave: 1.32 m/s E/A Ratio: 0.73 Peak Gradient: 3.74 mmHg Deceleration Time: 247.8 msec MV Main. Peak: Tissue Doppler E' Lateral Velocity: 0.04 m/s E/E': 23.67 Aortic Valve Peak Velocity: 1.35 m/s Mean Velocity: 0.95 m/s Peak Gradient: 7.27 mmHg Mean Gradient: 4.06 mmHg AV Area (continuity): 1.9 cm^2 AV VTI: 30.68 cm AV DVI: 0.61 LVOT Peak Velocity: 0.8 m/s Peak Gradient: 2.57 mmHg Mean Velocity: 0.58 m/s Mean Gradient: 1.5 mmHg LVOT Diameter: 1.99 cm LVOT VTI: 18.77 cm LVOT Area: 3.11 cm^2 LVOT SV:58.35 ml LVOT CO: 4.03 l/min LVOT CI: 2.37 l/min/m^2[facility] 15:48[facility]00 Test Item Value Reference Range Interpretation Comments PARTIAL THROMBOPLASTIN TIME 64.4 seconds 22.5-36.0 H ([facility]) (test code = 760) POCT-GLUCOSE [id number] 12:41:00 Test Item Value Reference Range Interpretation Comments POC-GLUCOSE METER 275 mg/dL 70-110 H TESTED AT [facility] 6720 ([facility]) (test code = [place] 1538) [address] RAD, CHEST, 1 VIEW, NON [id number] 09:33:00Reason for exam:->chest painShould this be performed at the bedside?->YesFINAL REPORT Comparison: 08/14/2018 TECHNIQUE: Single view of the chest FINDINGS: Trace bilateral pleural effusions. Lungs otherwise grossly clear. Cardiac silhouette is prominent. Aortic calcifications are seen. No acute skeletal abnormality. Signed: Terry Sauer Verified Date/Time: 11/11/2018 09:33:09 Reading Location: [address] Transitional Reading [facility] signed by: TERRY SAUER M.D. on 11/11/2018 09:33 AMTROPONIN Heidi 2018-11-11 09:11:00 Test Item Value Reference Range [...] acidosis, acute neurological disease, and persistent tachyarrhythmia.POCT-GLUCOSE [id number] 08:57:00 Test Item Value Reference Range Interpretation Comments POC-GLUCOSE METER 321 mg/dL 70-110 H Notified Brandan Shaw MD/JB (CRISTY) (test code = AT [facility] 6720 [facility] [place]LA[place]EN 8[address]) [facility] [address] 0 TROPONIN [id number] 08:29:00 Test Item Value Reference Range Interpretation [...] acute neurological disease, and persistent tachyarrhythmia.BASIC METABOLIC [id number] 08:26:00 Test Item Value Reference Range Interpretation [...] S NOT APPLICABLE FOR DIALYSIS PATIEN TS. Hepatic function [id number] 08:22:00 Test Item Value Reference Range Interpretation Comments Protein, Total (test code 7.3 6.0- 8.3 gm/dL Specimen slightly = 2885-2) hemolyzed Albumin (test code = 3.9 g/dL 3.5-5 Specime n slightly 19560-9) hemolyzed Total Bilirubin (test 0.5 mg/dL 0.2-1.2 Specim en slightly code = 1975-2) hemolyzed Bilirubin, Direct (test 0.2 mg/dL 0.1-0.5 Spec imen slightly code = 1968-7) hemolyzed Alkaline Phosphatase 129 U/L 40-150 (test code = 6768-6) AST (test code = 1920-8) 18 U/L 5-34 Spe cimen slightly hemolyzed ALT (test code = 1742-6) 11 U/L 6-55 Spe cimen slightly hemolyzed Lab Interpretation (test Normal code = 89152-2) [facility] 08:22:00 Test Item Value Reference Range Interpretation Comments MAGNESIUM (BEAKER) 2.2 mg/dL 1.6-2.6 Specimen slightly (test code = 627) hemolyzed HEPATIC FUNCTION [id number] 08:22:00 Test Item Value Reference Range Interpretation [...] = 700) CBC W/PLT COUNT & AUTO [id number] 07:04:00 Test Item Value Reference Range Interpretation [...] 0-1 PERCENT (BEAKER) (test code = 2801) TSH/T4 if [id number] 06:39:00 Test Item Value Reference Range Interpretation Comments TSH (test code = 24643-5) 1.17 0.35- 4.94 uIU/mL Lab Interpretation (test code = Normal 62916-3) [facility] T4 IF [id number] 06:39:00 Test Item Value Reference Range Interpretation Comments THYROID STIMULATING HORMONE 1.17 uIU/mL 0.35-4.94 (BEAKER) (test code = 772) [id number] 05:38:00 Test Item Value Reference Range Interpretation Comments PROTIME (BEAKER) (test code = 14.0 seconds 11.9-14.2 759) INR (BEAKER) (test code = 370) 1.1 <=5.9 PARTIAL THROMBOPLASTIN TIME 37.2 seconds 22.5-36.0 H (BEAKER) (test code = 760) Effective 07/18/2018: PT Reference Range ChangeNew: 11.9-14.2 Previous: 11.7- 14.7RECOMMENDED COUMADIN/WARFARIN INR THERAPY RANGESSTANDARD DOSE: 2.0-3.0 Includes: PROPHYLAXIS for venous thrombosis, systemic embolization; TREATMENT for venous thrombosis and/or pulmonary embolus.HIGH RISK: Target INR is2.5-3.5 for patients wiht mechanical heart valves.POCT-GLUCOSE [id number] 12:11:00 Test Item Value Reference Range Interpretation Comments POC-GLUCOSE METER 111 mg/dL 70-110 H TESTED AT [facility] 6720 (BEAKER) (test code = [place] 1538) [address] CBC W/PLT COUNT & AUTO [id number] 10:11:00 Test Item Value Reference Range Interpretation Comments WHITE BLOOD CELL COUNT 4.7 K/ L 3.5-10.5 (BEAKER) (test code = 775) RED BLOOD CELL COUNT 3.14 M/ L 3.93-5.22 L (BEAKER) (test code = 761) HEMOGLOBIN (BEAKER) 10.1 GM/DL 11.2-15.7 L (test code = 410) HEMATOCRIT (BEAKER) 34.0 % 34.1-44.9 L (test code = 411) MEAN CORPUSCULAR 108.3 fL 79.4-94.8 H Discordant results VOLUME (BEAKER) (test compar ed to previous code = [...] PERCENT (BEAKER) (test code = 2801) POCT-GLUCOSE [id number] 07:46:00 Test Item Value Reference Range Interpretation Comments POC-GLUCOSE METER 79 mg/dL 70-110 TESTED AT [place] [address] ([facility]) (test code = [facility] [address] 1538) BASIC METABOLIC [id number] 06:22:00 Test Item Value Reference Range Interpretation [...] NOT APPLICABLE FOR DIALYSIS PATIEN TS. POCT-GLUCOSE [id number] 20:51:00 Test Item Value Reference Range Interpretation Comments POC-GLUCOSE METER 176 mg/dL 70-110 H TESTED AT [place] [id number] ([facility]) (test code = [facility] 1538) [address] POCT-GLUCOSE [id number] 18:25:00 Test Item Value Reference Range Interpretation Comments POC-GLUCOSE METER 84 mg/dL 70-110 TESTED AT [place] [address] ([facility]) (test code = [facility] [address] 1538) POCT-GLUCOSE [id number] 12:54:00 Test Item Value Reference Range Interpretation Comments POC-GLUCOSE METER 111 mg/dL 70-110 H TESTED AT [place] [address] ([facility]) (test code = [facility] 1538) [address] POCT-GLUCOSE [id number] 08:25:00 Test Item Value Reference Range Interpretation Comments POC-GLUCOSE METER 105 mg/dL 70-110 TESTED AT [place] [address] ([facility]) (test code = [facility] 1538) [address] BASIC METABOLIC [id number] 06:26:00 Test Item Value Reference Range Interpretation Comments SODIUM (BEAKER) 137 meq/L 136-145 (test code = 381) POTASSIUM (BEAKER) 3.9 meq/L 3.5-5.1 (test code = 379) CHLORIDE (BEAKER) 100 meq/L 98-107 (test code = 382) CO2 (BEAKER) (test 28 meq/L 22-29 code = 355) BLOOD UREA NITROGEN 53 mg/dL 7-21 H (BEAKER) (test code = 354) CREATININE (BEAKER) 3.07 mg/dL 0.57-1.25 H (test code = 358) GLUCOSE RANDOM 71 mg/dL 70-105 (BEAKER) (test code = 652) CALCIUM (BEAKER) 8.6 mg/dL 8.4-10.2 (test code = 697) EGFR (BEAKER) (test 15 mL/min/1.73 ESTIMA ELVA GFR IS code = 1092) sq m NOT ACCURATE CREATININE CLEARANCE IN PREDICTING GLOMERULAR FILTRATION RATE . ESTIMATED GFR I S NOT APPLICABLE FOR DIALYSIS PATIEN TS. POCT-GLUCOSE [id number] 04:25:00 Test Item Value Reference Range Interpretation Comments POC-GLUCOSE METER 81 mg/dL 70-110 TESTED AT [place] [address] ([facility]) (test code = [facility] [address] 1538) POCT-GLUCOSE [id number] 21:58:00 Test Item Value Reference Range Interpretation Comments POC-GLUCOSE METER 164 mg/dL 70-110 H TESTED AT [place] [address] ([facility]) (test code = [facility] 1538) [address] POCT-GLUCOSE [id number] 18:38:00 Test Item Value Reference Range Interpretation Comments POC-GLUCOSE METER 98 mg/dL 70-110 TESTED AT [place] [address] ([facility]) (test code = [facility] Brandan [facility] [address] 1538) POCT-GLUCOSE [id number] 13:14:00 Test Item Value Reference Range Interpretation Comments POC-GLUCOSE METER 105 mg/dL 70-110 TESTED AT [place] [address] ([facility]) (test code = [facility] 1538) [address] POCT-GLUCOSE [id number] 08:12:00 Test Item Value Reference Range Interpretation Comments POC-GLUCOSE METER 115 mg/dL 70-110 H TESTED AT [place] [address] ([facility]) (test code = [facility] 1538) [address] BASIC METABOLIC [id number] 07:37:00 Test Item Value Reference Range Interpretation [...] NOT APPLICABLE FOR DIALYSIS PATIEN TS. POCT-GLUCOSE [id number] 07:22:00 Test Item Value Reference Range Interpretation Comments POC-GLUCOSE METER 128 mg/dL 70-110 H TESTED AT [facility] 6720 (BEAKER) (test code = [facility] 1538) [address] POCT-GLUCOSE [id number] 04:05:00 Test Item Value Reference Range Interpretation Comments POC-GLUCOSE METER 95 mg/dL 70-110 TESTED AT [place] [address] ([facility]) (test code = JODY Gipson [facility] [address] 1538) POCT-GLUCOSE [id number] 04:05:00 Test Item Value Reference Range Interpretation Comments POC-GLUCOSE METER 68 mg/dL 70-110 L TESTED AT [place] [address] ([facility]) (test code = JODY Gipson [facility] [address] 1538) POCT-GLUCOSE [id number] 04:05:00 Test Item Value Reference Range Interpretation Comments POC-GLUCOSE METER 52 mg/dL 70-110 L TESTED AT [place] [address] ([facility]) (test code = [facility] [place]IXMARY Gipson [facility] [address] 1538) POCT-GLUCOSE [id number] 22:26:00 Test Item Value Reference Range Interpretation Comments POC-GLUCOSE METER 132 mg/dL 70-110 H TESTED AT [place] [address] ([facility]) (test code = [facility] Brandan [facility] 1538) [address] POCT-GLUCOSE [id number] 19:58:00 Test Item Value Reference Range Interpretation Comments POC-GLUCOSE METER 134 mg/dL 70-110 H TESTED AT [place] [address] ([facility]) (test code = [facility] Brandan [facility] 1538) [address] POCT-GLUCOSE [id number] 13:11:00 Test Item Value Reference Range Interpretation Comments POC-GLUCOSE METER 148 mg/dL 70-110 H TESTED AT [place] [address] ([facility]) (test code = [facility] Brandan [facility] 1538) [address] POCT-GLUCOSE [id number] 12:30:00 Test Item Value Reference Range Interpretation Comments POC-GLUCOSE METER 183 mg/dL 70-110 H TESTED AT [place] [address] ([facility]) (test code = [facility] Brandan [facility] 1538) [address] CBC W/PLT COUNT & AUTO [id number] 10:37:00 Test Item Value Reference Range Interpretation Comments WHITE BLOOD CELL COUNT ([facility]) 7.4 K/ L 3.5-10.5 (test code = 775) RED BLOOD CELL COUNT ([facility]) 3.03 M/ L 3.93-5.22 L (test code = 761) HEMOGLOBIN ([facility]) (test code = 9.5 GM/DL 11.2-15.7 L [...] PERCENT (BEAKER) (test code = 2801) POCT-GLUCOSE [id number] 08:09:00 Test Item Value Reference Range Interpretation Comments POC-GLUCOSE METER 99 mg/dL 70-110 TESTED AT [facility] 6720 ([facility]) (test code = [place] [address] 1538) BASIC METABOLIC [id number] 05:41:00 Test Item Value Reference Range Interpretation [...] NOT APPLICABLE FOR DIALYSIS PATIEN TS. POCT-GLUCOSE [id number] 21:42:00 Test Item Value Reference Range Interpretation Comments POC-GLUCOSE METER 171 mg/dL 70-110 H TESTED AT [place] [address] ([facility]) (test code = JODY Gipson [facility] 1538) [address] POCT-GLUCOSE [id number] 18:03:00 Test Item Value Reference Range Interpretation Comments POC-GLUCOSE METER 123 mg/dL 70-110 H TESTED AT [place] [address] ([facility]) (test code = [place] 1538) [address] POCT-GLUCOSE [id number] 12:52:00 Test Item Value Reference Range Interpretation Comments POC-GLUCOSE METER 167 mg/dL 70-110 H TESTED AT [facility] 6720 ([facility]) (test code = [place] 1538) [address] POCT-GLUCOSE [id number] 09:05:00 Test Item Value Reference Range Interpretation Comments POC-GLUCOSE METER 128 mg/dL 70-110 H TESTED AT [facility] 6720 ([facility]) (test code = [facility] Brandan [place] 1538) [address] CT, PELVIS, WO [id number] 08:42:00FINAL REPORT CT pelvis without contrast HISTORY: [...] MDReport Verified Date/Time: 08/16/2018 08:42:53 Reading Location: [facility] Radiology Reading Room CT pelvis without IV [id number] 08:42:00Interface, External Ris In - 08/16/2018 8:[address] pelvis without contrast HISTORY: left groin/femoral wound infection COMPARISON: None Technique: serial axial imaging was performed without intravenous contrast as per departmental protocol. Multiplanar images are reconstructed and reviewed when indicated. This CT examination is performed using one or more ofthe following dose reduction techniques: Automated exposure control, adjustment of the mA and /or kVaccording to patient size, and/or use of iterative reconstruction technique. FINDINGS: The visualized small and large bowel loops demonstrate no apparent thickening or obstruction. The patient is status post hysterectomy. The urinary bladder demonstrates no definite wall thickening or intraluminal mass. No pelvic lymphadenopathy, free fluid, or hematoma is visualized. A small fat-containing umbilicalhernia is noted. Soft tissue stranding is visualized [...] and left lower quadrant abdominal wall. No organiz ed/drainable fluid collection. No findings of underlying osteomyelitis. Signed: Lucho Avery MDReport Verified Date/Time: 08/16/2018 08:42:53 Reading Location: [facility] Radiology Reading Room [facility] [id number] 05:58:00 Test Item Value Reference Range Interpretation [...] NOT APPLICABLE FOR DIALYSIS PATIEN TS. POCT-GLUCOSE [id number] 03:05:00 Test Item Value Reference Range Interpretation Comments POC-GLUCOSE METER 157 mg/dL 70-110 H TESTED AT [facility] 4220 (BEAKER) (test code = [place] 5948) [address] POCT-GLUCOSE [id number] 20:57:00 Test Item Value Reference Range Interpretation Comments POC-GLUCOSE METER 106 mg/dL 70-110 TESTED AT [facility] 6720 (CRISTY) (test code = [place] 1538) [address] Limited 2D [id number] 18:47:57Ejection FractionSLEH ECHO HEARTLAB MKCKESSON CPACSInterface, External Ris In - 08/15/2018 6:48 PM CDTTransthoracic Echocardiography Report (TTE) Demographics Patient Name HENRIQUE ARECHIGA Date of Study 08/15/2018 ESCBRENDADEO Gender Female Visit Number [id number] Race Room Number 1114 Number Date of 1940 Referring Peyton Choe Physician Age 78 year(s) Trouble Operator Pretty Long, [facility] All Around Gear Machine Operator Amber Kaplan [facility] Interpreting Nat Pettit MD Procedure Type of Study TTE procedure:LIMITED 2D ECHOCARDIOGRAM (Routine) Indications:Shortness of breath and Eval EF Function.Clinical HistoryUnstable angina, CKD Stage IV, IDDM, NSTEMI s/p Impella 08/01/18, L cath/PCI08/01/18HGB 8.7HCT 27.2 %Contrast Medium: Definity. Amount - 2 mlHeight: 61 inches Weight: 79.83 kg (176 lbs) BSA: 1.79 m^2BMI: 33.25 kg/m^2HR: 84 bpm BP: 112/47 mmHg Summary 1. The left ventricle is chamber size (by vol index) is moderately enlarged (female - LVED vol -71-80ml/m2) The following segment(s) appear severely hypokinetic: anterolateral and inferolateral. Beauchamp's method of disk assessment is suqszogzem-dy-itaetb reduced (30%) . 2. The right ventricular chamber size and systolic function are within normal limits. Previous Study Compared to the previous study there was no significant change. Signature --- Findings Technical Quality: Technically adequate exam. Left Limited 2D exam (no Doppler) to address study indication. Ventricle LV endocardium is adequately visualizedwith IV ultrasound enhancing agent. The left ventricle is chamber size (by vol index) is moderately enlarged (female - LVED vol -71-80ml/m2). Khvxdudu-io-kqlual concentric LV hypertrophy. Global LV systolic function movadvsq-pe-xdrlwrda reduced . LVEF by Beauchamp's method of disk assessment is tyzyvlpiat-ks-ahndej reduced (30%) . The following segment(s) appear [...] effusion is visualized. Chambers/Structures Left Ventricle LVIDd: 4.57cm LVEDV:95.67 ml LV Septum Diastolic: 1.59 cm LV PW Diastolic: 1.63 cm LVEDV Beauchamp's:137.8 ml LVESV Beauchamp's:96.45 ml LVEF Beauchamp's: 30 % LVEDVI: 77 ml/m^2 LVESVI: 54 ml/m^2[facility] [id number] 18:13:00 Test Item Value Reference Range Interpretation Comments POC-GLUCOSE METER 237 mg/dL 70-110 H TESTED AT [place] [address] ([employer]) (test code = [place] 1538) [address] POCT-GLUCOSE [id number] 13:47:00 Test Item Value Reference Range Interpretation Comments POC-GLUCOSE METER 172 mg/dL 70-110 H TESTED AT [place] [address] ([facility]) (test code = JODY Gipson [facility] 1538) [address] POCT-GLUCOSE [id number] 08:50:00 Test Item Value Reference Range Interpretation Comments POC-GLUCOSE METER 155 mg/dL 70-110 H TESTED AT [place] [address] ([facility]) (test code = JODY Gipson [facility] 1538) [address] BASIC METABOLIC [id number] 06:36:00 Test Item Value Reference Range Interpretation [...] NOT APPLICABLE FOR DIALYSIS PATIEN TS. POCT-GLUCOSE [id number] 22:53:00 Test Item Value Reference Range Interpretation Comments POC-GLUCOSE METER 231 mg/dL 70-110 H TESTED AT [place] [address] ([facility]) (test code = JOSEPHWY Brandan [facility] 1538) [address] POCT-GLUCOSE [id number] 17:51:00 Test Item Value Reference Range Interpretation Comments POC-GLUCOSE METER 169 mg/dL 70-110 H TESTED AT [place] [address] ([facility]) (test code = [facility] Brandan [facility] 1538) [address] Respiratory Panel [id number] 15:45:00 Test Item Value Reference Range Interpretation Comments Human Metapneumovirus Not detected Not detected, (test code = 72188-8) Equivocal Rhinovirus (test code = Not detected Not detected, 21523-0) Equivocal INFLUENZA A (NO Not detected Not detected, SUBTYPE) (test code = Equivocal 71709-4) Influenza A subtype H1 Not detected, (test code = 33643-7) Equivocal Influenza A Subtype H3 Not detected, (test code = 43339-1) Equivocal Influenza A Subtype Not detected, H1-2009 (test code = Equivocal 81288-7) Influenza B (test code Not detected Not detected, = 99823-9) Equivocal Respiratory Syncytial Not detected Not detected, Virus (test code = Equivocal 03571-9) Parainfluenza Virus 1 Not detected Not detected, (test code = 94634-1) Equivocal Parainfluenza Virus 2 Not detected Not detected, (test code = 61193-3) Equivocal Parainfluenza virus 3 Not detected Not detected, (test code = 65283-1) Equivocal Parainfluenza Virus 4 Not detected Not detected, (test code = 14614-1) Equivocal Adenovirus (test code = Not detected Not detected, 59177-7) Equivocal Coronavirus 229E (test Not detected Not detected, code = 85181-5) Equivocal Coronavirus HKU1 (test Not detected Not detected, code = 13653-1) Equivocal Coronavirus NL63 (test Not detected Not detected, code = 31246-3) Equivocal Coronavirus OC43 (test Not detected Not detected, code = 97347-5) Equivocal Bordetella Pertussis Not detected Not detected, (test code = 14212-3) Equivocal Chlamydophila Not detected Not detected, Pneumoniae (test code = Equivocal 90873-4) Mycoplasma Pneumoniae Not detected Not detected, (test code = 34774-7) Equivocal KAREN (test code = KAREN) Other viruses and bacteria not targeted by this PCR panel cannot be excluded; therefore clinical correlation and follow up of serology, culture results, and other molecular studies is required. The results are not intended to be used as the sole means for clinical diagnosis or patient management decisions. This sample was tested at the [facility] Molecular Diagnostics Laboratory using the CricHQArray Respiratory Panel. It is FDA cleared and has been verified and approved by the [facility] Molecular Diagnostics Laboratory for clinical use on nasopharyngeal swab specimens. The performance of the FilmArray RP has not been established in individuals who received influenza vaccine. Recent administration of a nasal influenza vaccine may cause false positive results for Influenza A and/orInfluenza B. [facility] PAN[facility] [id number] 15:45:00 Test Item Value Reference Range Interpretation [...] decisions. This sample was tested at the [facility] Molecular Diagnostics Laboratory using the CricHQArray Respiratory Panel. It is FDA cleared and has been verified and approved by the [facility] Molecular Diagnostics Laboratory for clinical use on nasopharyngeal swab specimens.The performance of the FilmArrayRP has not been established in individuals who received influenza vaccine. Recent administration ofa nasal influenza vaccine may cause false positive results for Influenza A and/orInfluenza B.Urinalysis w/Microscopic + Reflex to Culture 2018-08-14 12:32:00 Test Item Value Reference Range Interpretation Comments Color, UA (test code = 5778-6) Light Yellow Clarity, UA (test code = 5767-9) Hazy Specific W[place], UA (test code 1.009 1.001-1.035 = 5811-5) pH, UA (test code = 5803-2) 6.0 5.0-8.0 Protein, UA (test code = 30 mg/dL Negative A 87853-7) Glucose, UA (test code = 365) Negative Negative Ketones, UA (test code = 2514-8) Negative Negative Bilirubin, UA (test code = Negative Negative 43979-2) Blood, UA (test code = 42687-0) Small Negative A Nitrite, UA (test code = 5802-4) Negative Negative Leukocytes, UA (test code = Large Negative A 5799-2) Urobilinogen, UA (test code = 0.2 mg/dL 0.2-1 13235-6) RBC, UA (test code = 81020-5) 0 /HPF WBC, UA (test code = 5821-4) >182 /HPF Bacteria, UA (test code = Many 26678-2) Squam Epithel, UA (test code = <1 /HPF 56201-6) Renal Epithelial (test code = 15 /HPF 22102-4) WBC Casts (test code = 5820-6) 14 /LPF Specimen Source (test code = 2795) Lab Interpretation (test code = Abnormal 98101-3) [facility] [id number] 12:32:00 Test Item Value Reference Range Interpretation [...] 14 /LPF 1578) SOURCE(BEAKER) (test code = 2795) POCT-GLUCOSE [id number] 12:29:00 Test Item Value Reference Range Interpretation Comments POC-GLUCOSE METER 222 mg/dL 70-110 H TESTED AT [facility] 6720 (BEAKER) (test code = [place] 1538) [address] Manual [id number] 10:12:00 Test Item Value Reference Range Interpretation Comments % Neutros (test code = 86 % 2816) % Lymphs (test code = 4 % 2817) % Monos (test code = 2818) 5 % % Eos (test code = 2819) 2 % % Metamyelo (test code = 2 % 0-0 H 2820) % Myelo (test code = 2822) 1 % 0-0 H # Neutros (test code = 9.98 K/ul 1.56-6.13 H 2830) # Lymphs (test code = 0.46 K/ul 1.18-3.74 L 2831) # Monos (test code = 2832) 0.58 K/uL 0.24-0.36 H # Eos (test code = 2834) 0.23 K/uL 0.04-0.36 # Metamyelo (test code = 0.23 K/uL 0-0 H 2836) # Myelo (test code = 2837) 0.12 K/uL 0-0 H Total Counted (test code = 100 1351) nRBC (manual) (test code = 1 0- 0 /100 WBC H 1353) WBC Morphology (test code Normal = 487) Platelet Morphology (test Normal code = 486) Polychromasia (test code = 1+ few 478) Hypochromia (test code = 1+ few 963) Artifact (test code = Present 3432) Platelet Conc (test code = Adequate 3438) KAREN (test code = KAREN) Received comment: User comments: Slide comments: Lab Interpretation (test Abnormal code = 15804-9) [facility] W/PLT COUNT & AUTO [id number] 10:12:00 Test Item Value Reference Range Interpretation [...] MDReport Verified Date/Time: 08/14/2018 09:50:21 Reading Location: [facility] Radiology Reading Room POCT-GLUCOSE [id number] 08:20:00 Test Item Value Reference Range Interpretation Comments POC-GLUCOSE METER 126 mg/dL 70-110 H TESTED AT [facility] 6720 (BEAKER) (test code = JODY Gipson [facility] 1538) [address] COMPREHENSIVE METABOLIC [id number] 07:13:00 Test Item Value Reference Range Interpretation [...] S NOT APPLICABLE FOR DIALYSIS PATIEN TS. [id number] 06:59:00 Test Item Value Reference Range Interpretation Comments PHOSPHORUS (BEAKER) (test code = 2.3 mg/dL 2.3-4.7 604) [id number] 06:59:00 Test Item Value Reference Range Interpretation Comments MAGNESIUM (BEAKER) (test code = 2.0 mg/dL 1.6-2.6 627) CALCIUM, [id number] 06:47:00 Test Item Value Reference Range Interpretation Comments CALCIUM IONIZED (BEAKER) (test 1.04 mmol/L 1.12-1.27 L code = 698) PH, BLOOD (BEAKER) (test code = 7.38 1810) POCT-GLUCOSE [id number] 23:29:00 Test Item Value Reference Range Interpretation Comments POC-GLUCOSE METER 196 mg/dL 70-110 H TESTED AT [facility] 6720 ([facility]) (test code = [place] 1538) [address] POCT-GLUCOSE [id number] 17:42:00 Test Item Value Reference Range Interpretation Comments POC-GLUCOSE METER 179 mg/dL 70-110 H TESTED AT [facility] 6720 ([facility]) (test code = JODY Gipson [place] 1538) [address] POCT-GLUCOSE [id number] 12:19:00 Test Item Value Reference Range Interpretation Comments POC-GLUCOSE METER 189 mg/dL 70-110 H TESTED AT [facility] 6720 (BEAKER) (test code = JODY Gipson [place] 1538) [address] POCT-GLUCOSE [id number] 08:34:00 Test Item Value Reference Range Interpretation Comments POC-GLUCOSE METER 119 mg/dL 70-110 H TESTED AT [facility] 6720 (BEAKER) (test code = JODY Gipson [place] 1538) [address] COMPREHENSIVE METABOLIC [id number] 02:54:00 Test Item Value Reference Range Interpretation Comments TOTAL PROTEIN 5.8 gm/dL 6.0-8.3 L (BEAKER) (test code = 770) ALBUMIN (BEAKER) 3.2 g/dL 3.5-5.0 L (test code = 1145) ALKALINE PHOSPHATASE 65 U/L 40-150 (BEAKER) (test code = 346) BILIRUBIN TOTAL 0.8 mg/dL 0.2-1.2 (BEAKER) (test code = 377) [...] S NOT APPLICABLE FOR DIALYSIS PATIEN TS. [id number] 02:48:00 Test Item Value Reference Range Interpretation Comments PHOSPHORUS (BEAKER) (test code = 2.2 mg/dL 2.3-4.7 L 604) [id number] 02:48:00 Test Item Value Reference Range Interpretation Comments MAGNESIUM (BEAKER) (test code = 1.5 mg/dL 1.6-2.6 L 627) CALCIUM, [id number] 02:32:00 Test Item Value Reference Range Interpretation Comments CALCIUM IONIZED (BEAKER) (test 0.93 mmol/L 1.12-1.27 L code = 698) PH, BLOOD (BEAKER) (test code = 7.53 1810) CBC W/PLT COUNT & AUTO [id number] 02:31:00 Test Item Value Reference Range Interpretation [...] IMMATURE GRANULOCYTES-RELATIVE 3 % 0-1 H PERCENT (AKER) (test code = 2801) POCT-GLUCOSE [id number] 02:17:00 Test Item Value Reference Range Interpretation Comments POC-GLUCOSE METER 97 mg/dL 70-110 TESTED AT [place] [address] ([facility]) (test code = [facility] Gipson [facility] [address]38) POCT-GLUCOSE [id number] 21:04:00 Test Item Value Reference Range Interpretation Comments POC-GLUCOSE METER 147 mg/dL 70-110 H TESTED AT [place] [address] ([facility]) (test code = [facility] G[facility] 1538) [address] POCT-GLUCOSE [id number] 17:42:00 Test Item Value Reference Range Interpretation Comments POC-GLUCOSE METER 172 mg/dL 70-110 H TESTED AT [place] [address] ([facility]) (test code = JODY Gipson [facility] 1538) [address] POCT-GLUCOSE [id number] 12:05:00 Test Item Value Reference Range Interpretation Comments POC-GLUCOSE METER 124 mg/dL 70-110 H TESTED AT [place] [address] ([facility]) (test code = [facility] 1538) [address] POCT-GLUCOSE [id number] 07:37:00 Test Item Value Reference Range Interpretation Comments POC-GLUCOSE METER 94 mg/dL 70-110 TESTED AT [place] [address] ([facility]) (test code = [facility] [place] [place] [address] 1538) RAD, CHEST, 1 VIEW, NON [id number] 04:50:00Reason for exam:->SOBShould this be performed at [...] MDReport Verified Date/Time: 08/12/2018 04:50:01 Reading Location: [address] Reading Room POCT-GLUCOSE METER 2018-08-12 04:39:00 Test Item Value Reference Range Interpretation Comments POC-GLUCOSE METER 107 mg/dL 70-110 TESTED AT [facility] 6720 (BEAKER) (test code = JODY Gipson [facility] 1538) [address] COMPREHENSIVE METABOLIC [id number] 04:16:00 Test Item Value Reference Range Interpretation [...] S NOT APPLICABLE FOR DIALYSIS PATIEN TS. [id number] 04:11:00 Test Item Value Reference Range Interpretation Comments PHOSPHORUS (BEAKER) (test code = 2.9 mg/dL 2.3-4.7 604) [id number] 04:11:00 Test Item Value Reference Range Interpretation Comments MAGNESIUM (BEAKER) (test code = 1.9 mg/dL 1.6-2.6 627) CBC W/PLT COUNT & AUTO [id number] 03:57:00 Test Item Value Reference Range Interpretation [...] PERCENT (BEAKER) (test code = 2801) CALCIUM, [id number] 03:25:00 Test Item Value Reference Range Interpretation Comments CALCIUM IONIZED (BEAKER) (test 1.10 mmol/L 1.12-1.27 L code = 698) PH, BLOOD (BEAKER) (test code = 7.43 1810) POCT-GLUCOSE [id number] 00:03:00 Test Item Value Reference Range Interpretation Comments POC-GLUCOSE METER 122 mg/dL 70-110 H TESTED AT [place] [address] ([facility]) (test code = JODY Gipson [facility] 1538) [address] POCT-GLUCOSE [id number] 21:32:00 Test Item Value Reference Range Interpretation Comments POC-GLUCOSE METER 104 mg/dL 70-110 TESTED AT [place] [address] (BEAKER) (test code = JODY Gipson [facility] 1538) [address] POCT-GLUCOSE [id number] 17:51:00 Test Item Value Reference Range Interpretation Comments POC-GLUCOSE METER 151 mg/dL 70-110 H TESTED AT [place] [address] (BEAKER) (test code = JODY Gipson [facility] 1538) [address] BASIC METABOLIC [id number] 16:24:00 Test Item Value Reference Range Interpretation [...] S NOT APPLICABLE FOR DIALYSIS PATIEN TS. [id number] 16:22:00 Test Item Value Reference Range Interpretation Comments MAGNESIUM (BEAKER) 1.8 mg/dL 1.6-2.6 Specimen slightly (test code = 627) hemolyzed POCT-GLUCOSE [id number] 11:45:00 Test Item Value Reference Range Interpretation Comments POC-GLUCOSE METER 141 mg/dL 70-110 H TESTED AT [facility] 6720 (BEAKER) (test code = [facility] 1538) [address] POCT-GLUCOSE [id number] 07:51:00 Test Item Value Reference Range Interpretation Comments POC-GLUCOSE METER 112 mg/dL 70-110 H TESTED AT [facility] 6720 (BEAKER) (test code = [facility] Brandan [facility] 1538) [address] BASIC METABOLIC [id number] 05:18:00 Test Item Value Reference Range Interpretation [...] S NOT APPLICABLE FOR DIALYSIS PATIEN TS. [id number] 05:12:00 Test Item Value Reference Range Interpretation Comments MAGNESIUM (BEAKER) 2.0 mg/dL 1.6-2.6 Specimen moderately (test code = 627) hemolyzed CBC W/PLT COUNT & AUTO [id number] 04:19:00 Test Item Value Reference Range Interpretation [...] = 2801) RAD, CHEST, 1 VIEW, NON [id number] 03:48:00Reason for exam:->SOBShould this be performed at the bedside?->YesFINAL REPORT RAD, CHEST, 1 VIEW, NON DEPT INDICATION: SOB COMPARISON: Prior day's exam FINDINGS: Portable frontal view of the chest. IMPRESSION: Support Lines: Stable. Lungs and pleura: Unchanged airspace and pleural opacities. No pneumothorax.Heart and mediastinum: Stable contours. Additional findings: None. Signed: Socorro Méndez Verified Date/Time: 08/11/2018 03:48:09 -GLUCOSE [id number] 23:26:00 Test Item Value Reference Range Interpretation Comments POC-GLUCOSE METER 101 mg/dL 70-110 TESTED AT [facility] 6720 ([facility]) (test code = [place] 1538) [address] POCT-GLUCOSE [id number] 18:11:00 Test Item Value Reference Range Interpretation Comments POC-GLUCOSE METER 171 mg/dL 70-110 H TESTED AT [facility] 6720 (BEAKER) (test code = [place] 1538) [address] BASIC METABOLIC [id number] 16:14:00 Test Item Value Reference Range Interpretation [...] S NOT APPLICABLE FOR DIALYSIS PATIEN TS. [id number] 16:07:00 Test Item Value Reference Range Interpretation Comments MAGNESIUM (BEAKER) (test code = 2.0 mg/dL 1.6-2.6 627) Lactic Acid, [id number] 15:23:00 Test Item Value Reference Range Interpretation Comments Lactate, Art (test code = 2874) 0.9 mmol/L 0.5-2.2 Lab Interpretation (test code = Normal 57635-7) [facility], [id number] 15:23:00 Test Item Value Reference Range Interpretation Comments LACTATE BLOOD ARTERIAL (2) 0.9 mmol/L 0.5-2.2 (BEAKER) (test code = 2874) RAD, CHEST, 1 VIEW, NON [id number] 15:07:00Reason for exam:- >hypoxemiaShould this be performed [...] MDReport Verified Date/Time: 08/10/2018 15:07:53 Reading Location: [address] Consult Reading Room Blood gas, [id number] 14:53:00 Test Item Value Reference Range Interpretation Comments pH, Arterial (test code = 2744-1) 7.44 7.35-7.45 pCO2, Arterial (test code = 38 35- 45 mmHg 2018-8) pO2, Arterial (test code = 2703-7) 165 80- 90 mmHg H O2 Sat, Arterial (test code = 99.2 % 96-97 H 2708-6) HCO3, Arterial (test code = 26 mmol/L -29 1960-4) Base Excess, Arterial (test code = 1.1 mmol/L -2-3 1925-7) Patient Temperature (test code = 36.4 C 8310-5) FIO2 (test code = 1819) 44 % Lab Interpretation (test code = Abnormal 36765-4) [facility] Center[facility], [id number] 14:53:00 Test Item Value Reference Range Interpretation Comments PH ARTERIAL (BEAKER) (test code = 7.44 7.35-7.45 383) PCO2 ARTERIAL (BEAKER) (test code 38 mmHg 35-45 = 384) PO2 ARTERIAL (BEAKER) (test code = 165 mmHg 80-90 H 385) O2 SATURATION ARTERIAL (BEAKER) 99.2 % 96.0-97.0 H (test code = 386) HCO3 ARTERIAL (BEAKER) (test code 26 mmol/L -29 = 388) BASE EXCESS ARTERIAL (BEAKER) 1.1 mmol/L -2.0-3.0 (test code = 387) PATIENT TEMPERATURE (BEAKER) (test 36.4 C code = 1818) FIO2 (BEAKER) (test code = 1819) 44.0 % POCT-GLUCOSE [id number] 12:20:00 Test Item Value Reference Range Interpretation Comments POC-GLUCOSE METER 208 mg/dL 70-110 H TESTED AT [facility] 6720 (BEAKER) (test code = JODY [place]ip[place] 1538) [address] CBC W/PLT COUNT & AUTO [id number] 08:56:00 Test Item Value Reference Range Interpretation [...] MDReport Verified Date/Time: 08/10/2018 08:03:28 Reading Location: [facility] Radiology Reading Room POCT- GLUCOSE [id number] 07:51:00 Test Item Value Reference Range Interpretation Comments POC-GLUCOSE METER 129 mg/dL 70-110 H TESTED AT [facility] 6720 (BEAKER) (test code = [facility] 1538) [address] POCT-GLUCOSE [id number] 06:38:00 Test Item Value Reference Range Interpretation Comments POC-GLUCOSE METER 193 mg/dL 70-110 H TESTED AT [place] [address] ([facility]) (test code = [facility] 1538) [address] POCT-GLUCOSE [id number] 05:48:00 Test Item Value Reference Range Interpretation Comments POC-GLUCOSE METER 67 mg/dL 70-110 L TESTED AT [place] [address] ([facility]) (test code = [facility] [address] 1538) BASIC METABOLIC [id number] 05:07:00 Test Item Value Reference Range Interpretation [...] S NOT APPLICABLE FOR DIALYSIS PATIEN TS. [id number] 05:06:00 Test Item Value Reference Range Interpretation Comments MAGNESIUM ([facility]) 2.0 mg/dL 1.6-2.6 Specimen slightly (test code = 627) hemolyzed POCT-GLUCOSE [id number] 20:02:00 Test Item Value Reference Range Interpretation Comments POC-GLUCOSE METER 95 mg/dL 70-110 TESTED AT [place] [address] ([facility]) (test code = [facility] [address] 1538) POCT-GLUCOSE [id number] 17:35:00 Test Item Value Reference Range Interpretation Comments POC-GLUCOSE METER 144 mg/dL 70-110 H TESTED AT [place] [address] ([facility]) (test code = [facility] 1538) [address] POCT-GLUCOSE [id number] 13:42:00 Test Item Value Reference Range Interpretation Comments POC-GLUCOSE METER 180 mg/dL 70-110 H TESTED AT [place] [address] ([facility]) (test code = [facility] 1538) [address]76 POCT-GLUCOSE [id number] 07:56:00 Test Item Value Reference Range Interpretation Comments POC-GLUCOSE METER 206 mg/dL 70-110 H TESTED AT [place] [address] ([facility]) (test code = [facility] 1538) [address] CBC W/PLT COUNT & AUTO [id number] 06:25:00 Test Item Value Reference Range Interpretation Comments WHITE BLOOD CELL COUNT (BEAKER) 13.6 K/ L 3.5-10.5 H (test code = 775) RED BLOOD CELL COUNT (AKER) 2.66 M/ L 3.93-5.22 L (test code = 761) HEMOGLOBIN (BEAKER) (test code = 8.2 GM/DL 11.2-15.7 L 410) HEMATOCRIT (AKER) (test code = 25.5 % 34.1-44.9 L 411) MEAN CORPUSCULAR VOLUME ([facility]) 95.9 fL 79.4-94.8 H (test code = [...] (BEAKER) (test code = 2801) BASIC METABOLIC [id number] 06:22:00 Test Item Value Reference Range Interpretation [...] PATIEN TS. RAD, CHEST, 1 VIEW, NON [id number] 05:59:00Reason for exam:->SOBShould this be performed at [...] changes of the cervical spine. Signed: Socorro Méndezeport Verified Date/Time: 08/09/2018 05:59:24 POCT-GLUCOSE [id number] 22:05:00 Test Item Value Reference Range Interpretation Comments POC-GLUCOSE METER 254 mg/dL 70-110 H TESTED AT [facility] 6720 ([facility]) (test code = JODY Gipson [facility] 1538) 14914 POCT-GLUCOSE [id number] 18:33:00 Test Item Value Reference Range Interpretation Comments POC-GLUCOSE METER 271 mg/dL 70-110 H TESTED AT [facility] 6720 ([facility]) (test code = JOSEPHMAYR Gipson [facility] 1538) 35002 RAD, CHEST, 1 VIEW, NON [id number] 15:44:00Reason for exam:->IABP placementShould this be performed [...] Tracey Verified Date/Time: 08/08/2018 15:44:27 Reading Location: [facility] Reading Room RAD, CHEST, 1 VIEW, NON [id number] 13:42:00Reason for exam:->IABP positionShould this be performed [...] Tracey Verified Date/Time: 08/08/2018 13:42:06 Reading Location: [facility] Reading Room POCT-GLUCOSE [id number] 13:28:00 Test Item Value Reference Range Interpretation Comments POC-GLUCOSE METER 294 mg/dL 70-110 H TESTED AT [place] [address] ([facility]) (test code = JODY [place] 1538) [address] RAD, CHEST, 1 VIEW, NON [id number] 08:20:00Reason for exam:->SOBShould this be performed at [...] MDReport Verified Date/Time: 08/08/2018 08:20:51 Reading Location: [facility] Radiology Reading Room POCT-GLUCOSE [id number] 07:57:00 Test Item Value Reference Range Interpretation Comments POC-GLUCOSE METER 286 mg/dL 70-110 H TESTED AT [facility] 6720 ([facility]) (test code = JOSEPHWY Brandan [facility] 1538) 7[address] CBC W/PLT COUNT & AUTO [id number] 05:11:00 Test Item Value Reference Range Interpretation Comments WHITE BLOOD CELL COUNT (BEAKER) 11.2 K/ L 3.5-10.5 H (test code = 775) RED BLOOD CELL COUNT (AKER) 2.71 M/ L 3.93-5.22 L (test code [...] H PERCENT (BEAKER) (test code = 2801) [id number] 04:43:00 Test Item Value Reference Range Interpretation Comments MAGNESIUM (BEAKER) (test code = 2.3 mg/dL 1.6-2.6 627) BASIC METABOLIC [id number] 04:43:00 Test Item Value Reference Range Interpretation [...] NOT APPLICABLE FOR DIALYSIS PATIEN TS. POCT-GLUCOSE [id number] 22:27:00 Test Item Value Reference Range Interpretation Comments POC-GLUCOSE METER 279 mg/dL 70-110 H TESTED AT [place] [address] ([facility]) (test code = [facility] 1538) [address] BASIC METABOLIC [id number] 22:17:00 Test Item Value Reference Range Interpretation [...] S NOT APPLICABLE FOR DIALYSIS PATIEN TS. [id number] 22:13:00 Test Item Value Reference Range Interpretation Comments MAGNESIUM (BEAKER) (test code = 2.1 mg/dL 1.6-2.6 627) [id number] 19:37:00 Test Item Value Reference Range Interpretation Comments ACTIVATED CLOTTING TIME 268 sec TEST ED AT [place] [address] ([facility]) (test code = [facility] [place] 441) [address] [id number] 18:30:00 Test Item Value Reference Range Interpretation Comments ACTIVATED CLOTTING TIME 257 sec TEST ED AT [place] [address] ([facility]) (test code = JODY Gipson [place] 441) [address] [id number] 17:58:00 Test Item Value Reference Range Interpretation Comments ACTIVATED CLOTTING TIME 219 sec TEST ED AT [place] [address] ([facility]) (test code = JODY Gipson [place] 441) [address] [id number] 17:58:00 Test Item Value Reference Range Interpretation Comments ACTIVATED CLOTTING TIME > sec OUTS JOSSUE MEASURING ([facility]) (test code = RANGET ESTED AT [place] [address] 441) [facility] [address] POCT-GLUCOSE [id number] 12:23:00 Test Item Value Reference Range Interpretation Comments POC-GLUCOSE METER 169 mg/dL 70-110 H TESTED AT [place] [address] ([facility]) (test code = JOSEPHWY Brandan [facility] 1538) [address] RAD, CHEST, 1 VIEW, NON [id number] 09:10:00Reason for exam:->SOBShould this be performed at the bedside?->YesFINAL REPORT Chest dated 08/07/2018 COMPARISON: 08/06/2018 Clinical Information: SOB Comment: Heart is enlarged. Pulmonary vasculature is indistinct. Interstitial disease is seen bilaterally suggestive of vascular congestion or pulmonary edema. There is small bilateral pleural effusion. IMPRESSION: No interval change. Signed: Yuan Arango Verified Date/Time: 08/07/2018 09:10:23 Reading Location: [facility] Radiology Reading Room POCT-GLUCOSE [id number] 07:49:00 Test Item Value Reference Range Interpretation Comments POC-GLUCOSE METER 165 mg/dL 70-110 H TESTED AT [place] [address] ([facility]) (test code = JODY Gipson [facility] 1538) [address] COMPREHENSIVE METABOLIC [id number] 06:00:00 Test Item Value Reference Range Interpretation Comments TOTAL PROTEIN 6.0 gm/dL 6.0-8.3 ([facility]) (test code = 770) ALBUMIN (BEAKER) 3.3 [...] S NOT APPLICABLE FOR DIALYSIS PATIEN TS. [id number] 05:56:00 Test Item Value Reference Range Interpretation Comments PHOSPHORUS (BEAKER) (test code = 2.9 mg/dL 2.3-4.7 604) [id number] 05:56:00 Test Item Value Reference Range Interpretation Comments MAGNESIUM (BEAKER) (test code = 2.0 mg/dL 1.6-2.6 627) CBC W/PLT COUNT & AUTO [id number] 05:42:00 Test Item Value Reference Range Interpretation [...] PERCENT (BEAKER) (test code = 2801) CALCIUM, [id number] 05:32:00 Test Item Value Reference Range Interpretation Comments CALCIUM IONIZED (BEAKER) (test 1.12 mmol/L 1.12-1.27 code = 698) PH, BLOOD ([facility]) (test code = 7.36 1810) POCT-GLUCOSE [id number] 21:35:00 Test Item Value Reference Range Interpretation Comments POC-GLUCOSE METER 143 mg/dL 70-110 H TESTED AT [place] [address] ([facility]) (test code = JODY Gipson [facility] 1538) [address]31 POCT-GLUCOSE [id number] 17:31:00 Test Item Value Reference Range Interpretation Comments POC-GLUCOSE METER 105 mg/dL 70-110 TESTED AT [place] [address] ([facility]) (test code = JODY Gipson [facility] 1538) [address]45 POCT-GLUCOSE [id number] 12:46:00 Test Item Value Reference Range Interpretation Comments POC-GLUCOSE METER 159 mg/dL 70-110 H TESTED AT [place] [address] ([facility]) (test code = JODY Gipson [facility] 1538) [address]64 2D Echo W/Doppler(CW/PW/Color)2018-08-06 12:29:23Ejection FractionSLEH ECHO HEARTLAB MKCKESSON CPACSInterface, External Ris In - 08/06/2018 12:29 PM C DTTransthoracic Echocardiography Report (TTE) Demographics Patient Name HENRIQUE ARECHIGA Date of Study 08/06/2018 DUKEDEO Gender Female Visit Number [id number] Race Room Number [id number] Number Date of 1940 Referring Peyton Choe Physician Age 78 year(s) Trouble Operator Pretty Long RDCS [employer] Machine Operator Amber Kaplan RDCS Interpreting Garry Goodwin Physician Procedure Type of Study TTE procedure:LIMITED 2D ECHOCARDIOGRAM (Routine) Indications:Acute Chest Pain/ Suspected CAD.Clinical HistoryUnstable angina, CKD Stg IV, IDDM, NSTEMI s/p Impella 08/01/18, L cath/PCI08/01/18HGB 9.1HCT 27.9 %Contrast Medium: Definity. Amount - 2 mlHeight: 61 inches Weight: 79.83 kg (176 lbs) BSA: 1.79 m^2 BMI: 33.25 kg/m^2HR: 107 bpm BP: 133/67 mmHg Summary Limited [...] Technical Quality: Technically adequate exam. Rhythm/BP Sinus tachy cardia during the exam. Left Ventricle Limited 2D [...] limited imaging. Left Atrium LA size is moderatelyenlarged (42-48 ml/m2) . Right Ventricle The right [...] velocity signal. Pulmonic Valve PV is not visualized.Aorta Aortic root size (SInus of Valsalva diameter) [...] LVOT Diameter: 1.89 cm LVOT Area: 2.81 cm^2[facility] [id number] 07:40:00 Test Item Value Reference Range Interpretation Comments POC-GLUCOSE METER 120 mg/dL 70-110 H TESTED AT [facility] 6720 ([facility]) (test code = JODY [facility] 1538) [address] [id number] 04:52:00 Test Item Value Reference Range Interpretation Comments MAGNESIUM (BEAKER) (test code = 1.8 mg/dL 1.6-2.6 627) BASIC METABOLIC [id number] 04:52:00 Test Item Value Reference Range Interpretation [...] I S NOT APPLICABLE FOR DIALYSIS PATIEN RAD, CHEST, 1 VIEW, NON [id number] 04:45:00Reason for exam:->SOBShould this be performed at [...] MDReport Verified Date/Time: 08/06/2018 04:45:08 Reading Location: [address] Reading Room APTT 2018-08-06 04:31:00 Test Item Value Reference Range Interpretation Comments PARTIAL THROMBOPLASTIN TIME 45.7 seconds 22.5-36.0 H (BEAKER) (test code = 760) 4 hours after the start of continuous infusion and 4 hours after any rate change CBC W/PLT COUNT & AUTO [id number] 04:23:00 Test Item Value Reference Range Interpretation [...] PERCENT (BEAKER) (test code = 2801) POCT-GLUCOSE [id number] 21:47:00 Test Item Value Reference Range Interpretation Comments POC-GLUCOSE METER 184 mg/dL 70-110 H TESTED AT [facility] 6720 (BEAKER) (test code = [place]ODY [place] 1538) [address] POCT-GLUCOSE [id number] 17:15:00 Test Item Value Reference Range Interpretation Comments POC-GLUCOSE METER 120 mg/dL 70-110 H TESTED AT [facility] 6720 (BEAKER) (test code = JODY [place] 1538) [address] POCT-GLUCOSE [id number] 12:00:00 Test Item Value Reference Range Interpretation Comments POC-GLUCOSE METER 226 mg/dL 70-110 H TESTED AT [facility] 6720 (BEAKER) (test code = JODY Gipson [place] 1538) [address] POCT-GLUCOSE [id number] 07:45:00 Test Item Value Reference Range Interpretation Comments POC-GLUCOSE METER 192 mg/dL 70-110 H TESTED AT [facility] 6720 (BEAKER) (test code = JODY Gipson [place] 1538) [address] RAD, CHEST, 1 VIEW, NON [id number] 07:45:00Reason for exam:->SOBShould this be performed at [...] MDReport Verified Date/Time: 08/05/2018 07:45:53 Reading Location: [address] Neuro Reading Room [id number] 06:25:00 Test Item Value Reference Range Interpretation Comments MAGNESIUM (BEAKER) (test code = 1.8 mg/dL 1.6-2.6 627) BASIC METABOLIC [id number] 06:25:00 Test Item Value Reference Range Interpretation [...] PATIEN TS. CBC W/PLT COUNT & AUTO [id number] 05:59:00 Test Item Value Reference Range Interpretation [...] PERCENT (BEAKER) (test code = 2801) POCT-GLUCOSE [id number] 22:07:00 Test Item Value Reference Range Interpretation Comments POC-GLUCOSE METER 183 mg/dL 70-110 H TESTED AT [place] [address] ([facility]) (test code = [facility] 1538) [address]478 POCT-GLUCOSE [id number] 18:23:00 Test Item Value Reference Range Interpretation Comments POC-GLUCOSE METER 174 mg/dL 70-110 H TESTED AT [place] [address] ([facility]) (test code = [facility] 1538) [address] C. DIFFICILE GDH [id number] 15:36:00 Test Item Value Reference Range Interpretation Comments CDT TOXIN (test code Negative Negative = [id number]) CDT GDH ANTIGEN Positive Negative A C. difficile present but (test code = toxin not detec elva. [id number]) Indicates colon ization with non-toxige alexis strain [...] of kit performance was done by the [facility] Microbiology Lab prior to clinical use.URINALYSIS W/ REFLEX URINE [id number] 15:18:00 Test Item Value Reference Range Interpretation [...] 514) SOURCE(BEAKER) (test code = 2795) POCT-GLUCOSE [id number] 13:03:00 Test Item Value Reference Range Interpretation Comments POC-GLUCOSE METER 213 mg/dL 70-110 H TESTED AT [facility] 67 (BEAKER) (test code = JODY Gipson [facility] 1538) [address] OCCULT BLOOD, [id number] 11:58:00 Test Item Value Reference Range Interpretation Comments FECAL OCCULT BLOOD (BEAKER) (test Positive Negative A code = 618) POCT-GLUCOSE [id number] 08:00:00 Test Item Value Reference Range Interpretation Comments POC-GLUCOSE METER 127 mg/dL 70-110 H TESTED AT [place] [address] (BEAKER) (test code = [facility] Brandan [facility] 1538) [address] TROPONIN [id number] 07:07:00 Test Item Value Reference Range Interpretation [...] and persistent tachyarrhythmia.RAD, CHEST, 1 VIEW, NON [id number] 07:00:00Reason for exam:->SOBShould this be performed at [...] JR Hernandez Robert MDReport Verified Date/Time: 08/04/2018 07:00:06 Reading Location: [address] Neuro Reading Room COMPREHENSIVE METABOLIC [id number] 06:56:00 Test Item Value Reference Range Interpretation [...] S NOT APPLICABLE FOR DIALYSIS PATIEN TS. [id number] 06:55:00 Test Item Value Reference Range Interpretation Comments PHOSPHORUS (BEAKER) (test code = 2.8 mg/dL 2.3-4.7 604) [id number] 06:55:00 Test Item Value Reference Range Interpretation Comments MAGNESIUM (BEAKER) (test code = 1.9 mg/dL 1.6-2.6 627) CBC W/PLT COUNT & AUTO [id number] 06:12:00 Test Item Value Reference Range Interpretation [...] PERCENT (BEAKER) (test code = 2801) CALCIUM, [id number] 05:58:00 Test Item Value Reference Range Interpretation Comments CALCIUM IONIZED (BEAKER) (test 1.11 mmol/L 1.12-1.27 L code = 698) PH, BLOOD (BEAKER) (test code = 7.38 1810) POCT-GLUCOSE [id number] 22:08:00 Test Item Value Reference Range Interpretation Comments POC-GLUCOSE METER 163 mg/dL 70-110 H TESTED AT [facility] 6720 ([facility]) (test code = [place] 1538) [address] POCT-GLUCOSE [id number] 18:05:00 Test Item Value Reference Range Interpretation Comments POC-GLUCOSE METER 215 mg/dL 70-110 H TESTED AT [facility] 6720 ([facility]) (test code = JODY [place] 1538) [address] Limited 2D [id number] 17:53:49Ejection FractionSLEH ECHO HEARTLAB MKCKESSON CPACSInterface, External Ris In - 08/03/2018 5:54 PM CDTTransthoracic Echocardiography Report (TTE) Demographics Patient Name HENRIQUE ARECHIGA Dateof Study 08/03/2018 RANDEE Gender Female Visit Number [id number] Race Room Number [id number] Number Date of 1940 Referring Peyton Choe Physician Age 78 year(s) Sonogra yamileth Phan [facility] All Around Gear Machine Operator Nader Finley Interpreting Physician XIMENA Bedoya Procedure Type of Study TTE procedure:LIMITED 2D ECHOCARDIOGRAM (RHETT) Indications:Eval EF Function.Clinical HistoryCKD, DM, NSTEMI08/01/18 PCIHGB 10.4HCT 32.5 %Contrast Medium: Definity. Amount - 2 mlHeight: 61 inches Weight: 79.83 kg (176 lbs) BSA: 1.79 m^2 BMI: 33.25 kg/m^2HR: 92 bpm BP: 114/52 mmHg Summary Limited study to assess LVfunction. 1. Normal LV size. LV function appears moderately reduced. LVEF is 36.5% 2. Diastology: Not evaluated 3. Normal RV size and function 4. No significant valvular heart disease 5. Unable to estimate PASP 6. No pericardial effusion Previous Study No previous study available for comparison Signature Findings Left Ventricle LV endocardium is adequately visualizedwith IV ultrasound enhancing agent. The left ventricle [...] structure and function. Right Atrium Normal right atrium.Aortic Valve Mild AoV cusp thickening. Mitral Valve Mild MV leaflet thickening.Mild mitral annular calcification. Tricuspid Valve Unable to estimatepeak systolic PA pressure; inadequate TR velocity signal. Pulmonic Valve PV is not well visualized. Aorta Aortic root size (SInus of Valsalva diameter)is normal . Pericardium No evidence of pericardial effusion. IVC/ SVC/PA/PV/Pleural The estimated RA pressure by IVC dynamics [...] Ao Root S of Mary Ellen.: [facility] 2018-08[facility] 12:33:00 Test Item Value Reference Range Interpretation Comments POC-GLUCOSE METER 287 mg/dL 70-110 H TESTED AT [facility] 6720 ([facility]) (test code = JODY [place] 1538) [address] TROPONIN [id number] 10:28:00 Test Item Value Reference Range Interpretation Comments TROPONIN I ([facility]) (test code = 56.87 ng/mL 0.00-0.03 397) [...] Interpretation Comments CREATINE KINASE TOTAL (BEAKER) (test 601 U/L 29-200 H code = 380) RAD, CHEST, 1 VIEW, NON [id number] 08:51:00Reason for exam:->SOBShould this be performed at [...] MDReport Verified Date/Time: 08/03/2018 08:51:22 Reading Location: [facility] Radiology Reading Room Vitamin B12 and [id number] 03:08:00 Test Item Value Reference Range Interpretation Comments Vitamin B12 (test code = 2132-9) 212 pg/mL 213-816 L Folate (test code = 2284-8) 15.1 ng/mL >=7.0 Lab Interpretation (test code = Abnormal 66464-1) [facility] 03:08:00 Test Item Value Reference Range Interpretation Comments FERRITIN (BEAKER) (test code = 361) 207 ng/mL 5-275 VITAMIN B12 AND [id number] 03:08:00 Test Item Value Reference Range Interpretation Comments VITAMIN B12 (BEAKER) (test code = 212 pg/mL 213-816 L 774) FOLATE (BEAKER) (test code = 362) 15.1 ng/mL >=7.0 COMPREHENSIVE METABOLIC [id number] 02:38:00 Test Item Value Reference Range Interpretation [...] S NOT APPLICABLE FOR DIALYSIS PATIEN TS. [id number] 02:34:00 Test Item Value Reference Range Interpretation Comments PHOSPHORUS (BEAKER) (test code = 4.7 mg/dL 2.3-4.7 604) [id number] 02:34:00 Test Item Value Reference Range Interpretation [...] 20-55 L (test code = 2590) CALCIUM, [id number] 02:26:00 Test Item Value Reference Range Interpretation Comments CALCIUM IONIZED (BEAKER) (test 1.12 mmol/L 1.12-1.27 code = 698) PH, BLOOD (BEAKER) (test code = 7.27 1810) CBC W/PLT COUNT & AUTO [id number] 02:20:00 Test Item Value Reference Range Interpretation [...] PERCENT (BEAKER) (test code = 2801) RETICULOCYTE [id number] 02:16:00 Test Item Value Reference Range Interpretation Comments RETICULOCYTE COUNT PCT ([facility]) (test 2.7 % 0.5-1.7 H code = 575) POCT-GLUCOSE [id number] 01:12:00 Test Item Value Reference Range Interpretation Comments POC-GLUCOSE METER 239 mg/dL 70-110 H TESTED AT [place] [address] ([facility]) (test code = JODY Gipson [facility] 1538) [address] POCT-GLUCOSE [id number] 20:38:00 Test Item Value Reference Range Interpretation Comments POC-GLUCOSE METER 207 mg/dL 70-110 H TESTED AT [place] [address] ([facility]) (test code = JODY Gipson [facility] 1538) [address] POCT-GLUCOSE [id number] 16:39:00 Test Item Value Reference Range Interpretation Comments POC-GLUCOSE METER 216 mg/dL 70-110 H TESTED AT [place] [address] ([facility]) (test code = JODY Gipson [facility] 1538) 1960[address] [id number] 12:20:00 Test Item Value Reference Range Interpretation Comments PARTIAL THROMBOPLASTIN TIME 36.6 seconds 22.5-36.0 H ([facility]) (test code = 760) 4 hours after the start of continuous infusion and 4 hours after any rate change POCT-GLUCOSE [id number] 12:03:00 Test Item Value Reference Range Interpretation Comments POC-GLUCOSE METER 206 mg/dL 70-110 H TESTED AT [place] [address] ([facility]) (test code = JODY Gipson [facility] 1538) [address] POCT-GLUCOSE [id number] 12:03:00 Test Item Value Reference Range Interpretation Comments POC-GLUCOSE METER 193 mg/dL 70-110 H TESTED AT [place] [address] ([facility]) (test code = JODY [place] 1538) [address] POCT-GLUCOSE [id number] 12:02:00 Test Item Value Reference Range Interpretation Comments POC-GLUCOSE METER 234 mg/dL 70-110 H TESTED AT [place] [address] ([facility]) (test code = JODY Gipson [facility] 1538) [address] POCT-GLUCOSE [id number] 12:02:00 Test Item Value Reference Range Interpretation Comments POC-GLUCOSE METER 211 mg/dL 70-110 H TESTED AT [place] [address] ([facility]) (test code = JODY Gipson [facility] 1538) [address] U/S, RENAL, [id number] 08:45:00Reason for exam:->CKDFINAL REPORT TECHNIQUE: Grayscale ultrasound [...] may be obtained for further evaluation. Signed: Likhari, Gauruv MDReport Verified Date/Time: 08/02/2018 08:45:50 Reading Location: [address] Radiology Reading Room Electronically signedby: ROB NAVARRO MD on 08/02/2018 08:45 AMPOCT-GLUCOSE [id number] 08:25:00 Test Item Value Reference Range Interpretation Comments POC-GLUCOSE METER 237 mg/dL 70-110 H TESTED AT [place] [address] ([facility]) (test code = JODY Gipson [facility] 1538) [address] [id number] 08:19:00 Test Item Value Reference Range Interpretation Comments PARTIAL THROMBOPLASTIN TIME 38.2 seconds 22.5-36.0 H (AKER) (test code = 760) 4 hours after the start of continuous infusion and 4 hours after any rate change POCT-GLUCOSE [id number] 07:14:00 Test Item Value Reference Range Interpretation Comments POC-GLUCOSE METER 246 mg/dL 70-110 H TESTED AT [place] [address] ([facility]) (test code = JODY Gipson [facility] 1538) [address] COMPREHENSIVE METABOLIC [id number] 04:58:00 Test Item Value Reference Range Interpretation Comments TOTAL PROTEIN 5.5 gm/dL 6.0-8.3 L Specimen sligh tly (BEAKER) (test code = hemoly zed 770) ALBUMIN (BEAKER) 3.1 g/dL 3.5-5.0 L Specimen sl ightly (test code = 1145) hemolyzed ALKALINE PHOSPHATASE 54 U/L 40-150 (BEAKER) (test code = 346) BILIRUBIN TOTAL 0.7 mg/dL 0.2-1.2 Specimen sli ghtly (BEAKER) (test [...] S NOT APPLICABLE FOR DIALYSIS PATIEN TS. [id number] 04:52:00 Test Item Value Reference Range Interpretation Comments PARTIAL THROMBOPLASTIN TIME 37.5 seconds 22.5-36.0 H (BEAKER) (test code = 760) 4 hours after the start of continuous infusion and 4 hours after any rate change RAD, CHEST, 1 VIEW, NON [id number] 04:44:00Reason for exam:->impella positionShould this be performed [...] 0-100 H (BEAKER) (test code = 700) [id number] 04:40:00 Test Item Value Reference Range Interpretation Comments MAGNESIUM (BEAKER) 2.0 mg/dL 1.6-2.6 Specimen slightly (test code = 627) hemolyzed [id number] 04:40:00 Test Item Value Reference Range Interpretation Comments PHOSPHORUS (BEAKER) 4.7 mg/dL 2.3-4.7 Specimen slightly (test code = 604) hemolyzed URIC [id number] 04:40:00 Test Item Value Reference Range Interpretation Comments URIC ACID (BEAKER) 9.1 mg/dL 2.6-7.2 H Specimen slightly (test code = 773) hemolyzed LACTIC ACID, [id number] 04:31:00 Test Item Value Reference Range Interpretation Comments LACTATE BLOOD 0.9 mmol/L 0.5-2.2 Specimen sligh tly ARTERIAL (2) (BEAKER) hemoly zed (test code = 2874) HGB/HCT (H&H)-Stat [id number] 04:25:00 Test Item Value Reference Range Interpretation Comments Hemoglobin (test code = 786-4) 10.9 g/dL 12-15 L Hematocrit (test code = 4544-3) 32.0 % 36-45 L Lab Interpretation (test code = Abnormal 70853-4) [facility] [id number] 04:25:00 Test Item Value Reference Range Interpretation Comments Glucose (test code = 2345-7) 272 mg/dL 70-110 H Lab Interpretation (test code = Abnormal 46561-7) [facility] Center[facility], [id number] 04:25:00 Test Item Value Reference Range Interpretation [...] (test code = 1819) 36.0 % GLUCOSE-STAT [id number] 04:25:00 Test Item Value Reference Range Interpretation Comments GLUCOSE RANDOM (BEAKER) (test code 272 mg/dL 70-110 H = 652) HGB/HCT (H&H) - STAT [id number] 04:25:00 Test Item Value Reference Range Interpretation Comments HEMOGLOBIN (BEAKER) (test code = 10.9 g/dL 12.0-15.0 L 410) HEMATOCRIT (BEAKER) (test code = 32.0 % 36.0-45.0 L 411) CBC W/PLT COUNT & AUTO [id number] 04:24:00 Test Item Value Reference Range Interpretation [...] PERCENT (BEAKER) (test code = 2801) CALCIUM, [id number] 04:22:00 Test Item Value Reference Range Interpretation Comments CALCIUM IONIZED (BEAKER) (test 1.20 mmol/L 1.12-1.27 code = 698) PH, BLOOD (BEAKER) (test code = 7.31 1810) Sodium Na-Stat [id number] 04:21:00 Test Item Value Reference Range Interpretation Comments Sodium (test code = 2951-2) 136 meq/L 135-148 Lab Interpretation (test code = Normal 76046-2) [facility]Stat [id number] 04:21:00 Test Item Value Reference Range Interpretation Comments Potassium (test code = 2823-3) 4.6 meq/L 3.6-5.5 Lab Interpretation (test code = Normal 43703-5) [facility] [id number] 04:21:00 Test Item Value Reference Range Interpretation Comments SODIUM (BEAKER) (test code = 381) 136 meq/L 135-148 POTASSIUM-STAT [id number] 04:21:00 Test Item Value Reference Range Interpretation Comments POTASSIUM (BEAKER) (test code = 4.6 meq/L 3.6-5.5 379) LACTIC ACID, [id number] 00:13:00 Test Item Value Reference Range Interpretation Comments LACTATE BLOOD ARTERIAL (2) 0.7 mmol/L 0.5-2.2 (BEAKER) (test code = 2874) SODIUM NA-STAT [id number] 23:59:00 Test Item Value Reference Range Interpretation Comments SODIUM (BEAKER) (test code = 381) 136 meq/L 135-148 POTASSIUM-STAT [id number] 23:59:00 Test Item Value Reference Range Interpretation Comments POTASSIUM (BEAKER) (test code = 4.8 meq/L 3.6-5.5 379) BLOOD GAS, [id number] 23:59:00 Test Item Value Reference Range Interpretation [...] (test code = 1819) 36.0 % GLUCOSE-STAT [id number] 23:59:00 Test Item Value Reference Range Interpretation Comments GLUCOSE RANDOM (BEAKER) (test code 275 mg/dL 70-110 H = 652) HGB/HCT (H&H) - STAT [id number] 23:59:00 Test Item Value Reference Range Interpretation Comments HEMOGLOBIN (BEAKER) (test code = 11.3 g/dL 12.0-15.0 L 410) HEMATOCRIT (BEAKER) (test code = 33.0 % 36.0-45.0 L 411) [id number] 21:53:00 Test Item Value Reference Range Interpretation Comments PARTIAL THROMBOPLASTIN TIME 63.4 seconds 22.5-36.0 H (BEAKER) (test code = 760) 4 hours after the start of continuous infusion and 4 hours after any rate change COMPREHENSIVE METABOLIC [id number] 19:43:00 Test Item Value Reference Range Interpretation [...] DIALYSIS PATIEN TS. Call k > 5, [id number] 19:41:00 Test Item Value Reference Range Interpretation Comments Sodium (test code = 137 meq/L 234-811 8595-2) Potassium (test code 4.8 meq/L 3.5-5.1 Specime n = 2823-3) slightly hemolyzed Chloride (test code = 109 meq/L 98-107 H 2074-) CO2 (test code = 20 meq/L 22-29 L 2027-) KAREN (test code = KAREN) Call k > 5, [id number] Lab Interpretation Abnormal (test code = 22910-8) [facility] CenterELECTROLYTES2019-06-12 19:41:00 Test Item Value Reference Range Interpretation Comments SODIUM (BEAKER) (test 137 meq/L 136-145 code = 381) POTASSIUM (BEAKER) 4.8 meq/L 3.5-5.1 Specimen slightly (test code = 379) hemolyzed CHLORIDE (BEAKER) 109 meq/L 98-107 H (test code = 382) CO2 (BEAKER) (test 20 meq/L 22-29 L code = 355) Call k > 5, [id number] 19:37:00 Test Item Value Reference Range Interpretation [...] INR is2.5-3.5 for patients wiht mechanical heart valves.[id number] 19:36:00 Test Item Value Reference Range Interpretation Comments Fibrinogen (test code = 3255-7) 336 mg/dl 225-434 Lab Interpretation (test code = Normal 92027-0) [facility]FIBRINOGEN2019-06-12 19:36:00 Test Item Value Reference Range Interpretation Comments FIBRINOGEN LEVEL (BEAKER) (test 336 mg/dl 225-434 code = 658) LACTIC ACID, [id number] 19:34:00 Test Item Value Reference Range Interpretation [...] (BEAKER) (test code = 413) BLOOD GAS, [id number] 19:16:00 Test Item Value Reference Range Interpretation [...] (test code = 1819) 36.0 % GLUCOSE-STAT [id number] 19:16:00 Test Item Value Reference Range Interpretation Comments GLUCOSE RANDOM (BEAKER) (test code 231 mg/dL 70-110 H = 652) HGB/HCT (H&H) - STAT [id number] 19:16:00 Test Item Value Reference Range Interpretation Comments HEMOGLOBIN (BEAKER) (test code = 11.5 g/dL 12.0-15.0 L 410) HEMATOCRIT (BEAKER) (test code = 34.0 % 36.0-45.0 L 411) CALCIUM, [id number] 19:15:00 Test Item Value Reference Range Interpretation Comments CALCIUM IONIZED (BEAKER) (test 1.26 mmol/L 1.12-1.27 code = 698) PH, BLOOD (BEAKER) (test code = 7.35 1810) Oxygen saturation, [id number] 19:14:00 Test Item Value Reference Range Interpretation Comments O2 Saturation (Measured) (test code = 41.9 % 67653-7) [facility] CenterOXYGEN SATURATION, [id number] 19:14:00 Test Item Value Reference Range Interpretation Comments O2 SATURATION (MEASURED) (BEAKER) 41.9 % (test code = 1455) SODIUM NA-STAT [id number] 19:14:00 Test Item Value Reference Range Interpretation Comments SODIUM (BEAKER) (test code = 381) 138 meq/L 135-148 POTASSIUM-STAT [id number] 19:14:00 Test Item Value Reference Range Interpretation Comments POTASSIUM (BEAKER) (test code = 4.7 meq/L 3.6-5.5 379) [id number] 16:45:00 Test Item Value Reference Range Interpretation Comments ACTIVATED CLOTTING TIME 389 sec TEST ED AT [facility] 6720 (BEAKER) (test code = JODY [place] 441) [address] Hemoglobin and [id number] 16:38:00 Test Item Value Reference Range Interpretation Comments Hemoglobin (test code = 786-4) 10.1 11.2- 15.7 GM/DL L Hematocrit (test code = 4544-3) 31.6 % 34.1-44.9 L Lab Interpretation (test code = Abnormal 67271-7) [facility] CenterHEMOGLOBIN AND [id number] 16:38:00 Test Item Value Reference Range Interpretation Comments HEMOGLOBIN (BEAKER) (test code = 10.1 GM/DL 11.2-15.7 L 410) HEMATOCRIT (BEAKER) (test code = 31.6 % 34.1-44.9 L 411) Platelet Aggregation: Function [id number] 16:05:00 Test Item Value Reference Range Interpretation Comments Weak ADP (test code = 34 % 60-91 L 5992-3) Plt. Function Screen 0-39% indicates Interpretation (test marked platelet code = 06901-9) dysfunction Pathologist: (test code Talia Villarreal, = 2622) (electronic signature) Platelets (test code = 186 150- 450 K/CU MM 2656) KAREN (test code = KAREN) Platelet Function Screen results may be falsely low with platelet counts<100,000/cu mm. Lab Interpretation (test Abnormal code = 01506-7) [facility] CenterPLATELET AGGREGATION: FUNCTION [id number] 16:05:00 Test Item Value Reference Range Interpretation Comments WEAK ADP 34 % 60-91 L RESULT(BEAKER) (test code = 2135) PLATELET FUNCTION 0-39% indicates marked SCREEN INTERP platelet dysfunction (BEAKER) (test code = 2173) [id number] Talia Villarreal MD (BEAKER) (test code = (electronic signature) 2622) PLATELET COUNT AGG 186 K/CU MM 150-450 (BEAKER) (test code = 2656) Platelet Function Screen results may be falsely low with platelet counts<100,000/cu mm.[id number] 15:02:00 Test Item Value Reference Range Interpretation Comments ACTIVATED CLOTTING TIME 411 sec TEST ED AT [place] [address] ([facility]) (test code = JODY [place] 441) [address] POCT-GLUCOSE [id number] 12:17:00 Test Item Value Reference Range Interpretation Comments POC-GLUCOSE METER 103 mg/dL 70-110 TESTED AT [place] [address] ([facility]) (test code = JODY [place] 1538) [address] 2D Echo W/Doppler(CW/PW/Color)2018-08-01 10:39:48Ejection FractionSLEH ECHO HEARTLAB MKCKESSON CPACSInterface, External Ris In - 08/01/2018 10:40 AM C DTTransthoracic Echocardiography Report (TTE) Demographics Patient Name HENRIQUE ARECHIGA Date of Study 08/01/2018 RANDEE Gender Female Visit Number [id number] Race Unknown Room Number 6102 Number Date of 1940 Referring Peyton Choe Physician Age 78 year(s) Trouble Operator Nat Kuhn RD, RVT Interpreting Nat Pettit, Physician MD Fellow Radha Ferraro MD Procedure Type of Study TTE procedure:2DECHO W DOPPLER(CW/PW/COLOR) (STAT) Indications:Acute Chest Pain/ Suspected CAD.Clinical HistoryHGB 13HCT 41.2 %Hei ght: 61 inches Weight: 77.56 kg (171 lbs) BSA: 1.77 m^2 BMI: 32.31 kg/m^2HR: 79 bpm BP: 132/67 mmHg Summary 1. All of the LV segments contract normally . LVEF by Beauchamp's method of disk assessment is lower limits of normal (50-55%) . 2. Estimated peak systolic PA pressure is cannot be determined dueto inadequate TR velocity signal . 3. Grade 2 diastolic dysfunction (moderately increased LA pressure). Previous Study No prior studies available for comparison. Signature Findings Rhythm/BP Regular sinus rhythm during the exam. Left Ventricle The LV endocardium is adequately visualized. The left ventricle is chamber size (byvol index) is small. LV septal thickness is mildly increased (1.2-1.4cm). LV posterior wall thickness is normal (0.6-1.1cm) . All of the LV segments contract normally . LVEF by Beauchamp's method of disk assessment is lower limits of normal (50- 55%) . Grade 2 diastolic dysfunction (moderately increased [...] peak systolic PA pressure is cannot be det ermined due to inadequate TR velocity signal . [...] Valve MV Peak E-Wave: 1.46 m/s MV PeakA-Wave: 1.39 m/s E/A Ratio: 1.05 Peak Gradient: 8.49 mmHg Deceleration Time: 261.9 msec MV Main. Peak: Tissue Doppler E' Lateral Velocity: 0.08 m/s A' Lateral Velocity: 0.1 m/s E/E': 18.74 Aortic Valve Peak Velocity: 1.47 m/s Mean Velocity: 1.06 m/s Peak Gradient: 8.68 mmHg Mean Gradient: 5.05 mmHg AV Area(continuity): 1.91 cm^2 AV VTI: 36.4 cm AV DVI: 0.59 LVOT Peak Velocity: 0.96 m/s Peak Gradient: 3.65 mmHg Mean Velocity: 0.59 m/s Mean Gradient: 1.71 mmHg LVOT Diameter: 2.04 cm LVOT VTI: 21.31 cm LVOT Area: 3.27 cm^2 LVOT SV:69.62 ml LVOT CO: 5.5 l/min LVOT CI: 3.11 l/min/m^2[facility] [id number] 08:18:00 Test Item Value Reference Range Interpretation Comments POC-GLUCOSE METER 388 mg/dL 70-110 H TESTED AT [facility] 6720 ([facility]) (test code = [place]ODY [place] 1538) [address] HEPATIC FUNCTION [id number] 08:09:00 Test Item Value Reference Range Interpretation Comments TOTAL PROTEIN (AKER) 6.2 gm/dL 6.0-8.3 Speci men slightly (test code = 770) hemolyzed ALBUMIN (AKER) (test 3.4 g/dL 3.5-5.0 L Speci men slightly code = 1145) hemolyzed BILIRUBIN TOTAL 0.4 mg/dL 0.2-1.2 Specimen sli ghtly (AKER) (test code = hemoly zed 377) BILIRUBIN DIRECT 0.1 mg/dL 0.1-0.5 Specimen sl ightly (BEAKER) (test code = hemoly zed 706) ALKALINE PHOSPHATASE 59 U/L 40-150 (BEAKER) (test code = 346) AST (SGOT) (BEAKER) 19 U/L 5-34 Specimen slightly (test code = 353) hemolyzed ALT (SGPT) (BEAKER) 10 U/L 6-55 Specimen slightly (test code = 347) hemolyzed TROPONIN [id number] 06:39:00 Test Item Value Reference Range Interpretation [...] acidosis, acute neurological disease, and persistent tachyarrhythmia.POCT-GLUCOSE [id number] 06:36:00 Test Item Value Reference Range Interpretation Comments POC-GLUCOSE METER 415 mg/dL 70-110 HH TESTED AT [facility] 6720 (BEAKER) (test code = JODY [place] 1538) [address] BASIC METABOLIC [id number] 06:10:00 Test Item Value Reference Range Interpretation [...] S NOT APPLICABLE FOR DIALYSIS PATIEN TS. [id number] 06:03:00 Test Item Value Reference Range Interpretation Comments MAGNESIUM (BEAKER) 2.2 mg/dL 1.6-2.6 Specimen slightly (test code = 627) hemolyzed Thrombin [id number] 05:09:00 Test Item Value Reference Range Interpretation Comments Thrombin Time (test code = 64.9 13.8- 20.0 secs H 3243-3) KAREN (test code = KAREN) Draw baseline aPTT prior to infusion Lab Interpretation (test Abnormal code = 06663-1) [facility] CenterTHROMBIN [id number] 05:09:00 Test Item Value Reference Range Interpretation Comments THROMBIN TIME (BEAKER) (test code = 64.9 secs 13.8-20.0 H 550) Draw baseline aPTT prior to [id number] 05:08:00 Test Item Value Reference Range Interpretation Comments PARTIAL THROMBOPLASTIN TIME 43.1 seconds 22.5-36.0 H (BEAKER) (test code = 760) Draw baseline aPTT prior to infusionPROTHROMBIN TIME/[id number] 05:07:00 Test Item Value Reference Range Interpretation [...] to infusion CBC W/PLT COUNT & AUTO [id number] 04:59:00 Test Item Value Reference Range Interpretation [...] = 2801) RAD, CHEST, 1 VIEW, NON [id number] 04:33:00Reason for exam:->preopShould this be performed at the bedside?->YesFINAL REPORT RAD, CHEST, 1 VIEW, NON DEPT INDICATION: preop COMPARISON: Prior day's exam FINDINGS: Portable frontal view of the chest. IMPRESSION: Support Lines: Stable. Lungs and pleura: Unchanged airspace and pleural opacities. No pneumothorax.Heart and mediastinum: Stable contours. Additional findings: None. Signed: Socorro Méndez Verified Date/Time: 08/01/2018 04:33:15 RAD, CHEST, 1 VIEW, NON [id number] 00:02:00Reason for exam:->Intraaortic balloon pump insertionShould this [...] of the cervical spine. Signed: Socorro Méndez MDReport Verified Date/Time: 08/01/2018 00:02:19 Electronically signed by: SOCORRO MÉNDEZ MD on08/01/2018 12:02 AMTSH/FREE T4 IF [id number] 21:34:00 Test Item Value Reference Range Interpretation Comments THYROID STIMULATING HORMONE 0.99 uIU/mL 0.35-4.94 (BEAKER) (test code = 772) TROPONIN [id number] 21:26:00 Test Item Value Reference Range Interpretation Comments TROPONIN I (BEAKER) (test code = 0.28 ng/mL 0.00-0.03 397) [...] = 700) RAD, CHEST, 1 VIEW, NON [id number] 21:20:00Reason for exam:->unstable anginaShould this be performed [...] MDReport Verified Date/Time: 07/31/2018 21:20:52 Reading Location: [address] Consult Reading Room [facility] METABOLIC [id number] 21:18:00 Test Item Value Reference Range Interpretation [...] APPLICABLE FOR DIALYSIS PATIEN TS. HEPATIC FUNCTION [id number] 21:15:00 Test Item Value Reference Range Interpretation [...] (test code = 10 U/L 6-55 347) [id number] 20:57:00 Test Item Value Reference Range Interpretation Comments PARTIAL THROMBOPLASTIN TIME 27.7 seconds 22.5-36.0 (BEAKER) (test code = 760) PROTHROMBIN TIME/[id number] 20:56:00 Test Item Value Reference Range Interpretation [...] mechanical heart valves.CBC W/PLT COUNT & AUTO [id number] 20:50:00 Test Item Value Reference Range Interpretation [...] 0-1 PERCENT (BEAKER) (test code = 2801) [id number] 19:45:00 Test Item Value Reference Range Interpretation Comments TROPONIN-I (test 0.18 ng/mL 0.00-0.05 HH RESULTS KRYSTINA LED TO code = TROPI) SOLITARIO SCHUMACHER A T 194407/28/18.Ligia Jarrett CRITICAL VALUE READ BACK BY NURSE AND VE RIFIED BY TECH? Y<0.05 Normal0.06 - 0. 39 Consistent with circulating Tro ponin with possible Myocardial inju ry.>0.40 Consi stent with Myocardial inju ry extens diandra enough to conform with AMI as d efined by WHO. COMPREHENSIVE METABOLIC [id number] 16:08:00 Test Item Value Reference Range Interpretation [...] code = ALKP) - XR CHEST 1 [id number] 15:43:00 FAX: Rhett Jo [phone] Camps: ER St: REG Name: HENRIQUE ARECHIGA [facility] : 1940 Age/S: 78/F [address] Unit #: [id number] Loc: [place], [place] [address] Phys: Rhett Sams MD Acct: [id number] Dis Date: Status: REG ER PHONE #: [phone] Exam Date: 07/28/2018 1527 FAX #: [phone] Reason: CP EXAMS: CPT CODE: [id number] XR CHEST 1 V 25455 Examination: Chest 1 view Location code: S17 Comparison: None Discussion: Clinical history is remarkable for chest tightness. Cardiac silhouette is slightly enlarged, atherosclerotic change present. There are coarsened interstitial changes present bilaterally, mild bilateral parenchymal basilar scarring noted. Impression: 1. Coarsened interstitial changes with likely bilateral basilar parenchymal scarring. at 8366 Reported and signed by: YUAN BUNN M.D. CC: Rhett Sams MDTechnologist: HESHAM FONG RT,(R) ARRT Transcribed Date/Time/By: 07/28/2018 (2897) :MarekJH12 Orig Print D/T: S: 07/28/2018 (1447) Automated exposure control, iterative reconstruction technique, and/oradjustment of mA and/or kV according to patient's size was utilizedfor optimum radiation dose reduction. PAGE 1 Signed Report TROPONIN I [id number] 15:37:00 Test Item Value Reference Range Interpretation Comments TROPONIN I RAPID 0.03 NG/ML 0.00-0.08 N 0.00 - 0.08 (test code = Normal0.09 - 0. 40 TROPIRAP) Indeterminate f or AMI 0.41 and above Compatible with AMI CHEMISTRY 8 [id number] 15:36:00 Test Item Value Reference Range Interpretation [...] 2.6 MG/DL 0.6-1.0 H CREATBED) CBC W/AUTO [id number] 15:34:00 Test Item Value Reference Range Interpretation [...]
--- OUTSIDE RECORDS SUMMARY | 2019-07-30 07:17 | XMS REPORT ---
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 Active Problem 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 Ac tive classified elsewhere Problem Chronic kidney disease, stage 4 N18.4 Active (severe) Medications Medication Code Code Instructions Start End Status Dosage System Date Date Humalog [facility] 04184838919 100 UNIT/ML Active as direc elva Subcutaneous Lipitor [facility] 38434041635 80 MG Orally Active 1 table t Once a day Tradjenta [facility] 48215805457 5 MG Orally Active 1 tabl et Once a day Metoprolol [facility] 90993056889 50 MG Orally Active 1 ta blet Tartrate Twice a day with food Nitrostat [facility] 97633273433 0.4 MG Active as directe d Sublingual 3 doses within 15 minutes PRN CHEST PAIN Lactobacillus NDC 0 Active not define d Protonix [facility] 29253714775 40 MG Orally Active 1 pack et Once a day mixed with apple juice or applesauce Cyanocobalamin [facility] [address]-61 1000 MCG Active 1 tablet Orally Once a day Tresiba FlexTouch [facility] 68612572416 200 UNIT/ML Active 10 units Subcutaneous daily Atorvastatin [facility] 15048247706 80 MG Active TAKE 1 Calcium TABLET BY MOUTH EVERY DAY Bumetanide [facility] 58332298098 1 MG Oral Active TAKE 1 TABLET BY MOUTH TWICE A DAY Senna S [facility] 82610019132 8.6-50 MG Active 1 tablet i n Orally Once a the evenin g day as needed Folic Acid [facility] 90790489897 1 MG Active TAKE 1 TABLET BY MOUTH EVERY DAY Calcitriol [facility] 08370315311 0.5 MCG Active TAKE 1 CAPSULE BY MOUTH EVERY DAY BD Pen Needle [facility] 02538077635 31G X 5 MM Active USE Mini U/F DIRECTED Vitamin D-3 [facility] 66050457564 5000 UNIT Active as dir ected Orally Ferrous Sulfate [facility] 44734707275 325 (65 Fe) MG Activ e TAKE 1 Oral TABLET BY MOUTH TWICE A DAY Calcitriol [facility] [address]-58 0.5 MCG Active TAKE 1 CAPSULE BY MOUTH EVERY DAY Cranberry Extract [facility] 14171-33393 Active no t defined Clopidogrel [facility] 97499701578 75 MG Orally Active 1 t ablet Bisulfate Once a day Thiamine HCl [facility] 92630226605 100 MG Orally Active 1 tablet Once a day Aspir-Low [facility] 69278912699 81 MG Orally Active 1 tab let Once a day Clopidogrel [facility] 20916766228 75 MG Active TAKE 1 Bisulfate TABLET BY MOUTH EVERY DAY Results No Known Results Summary Purpose eClinicalWorks Submission
--- OUTSIDE RECORDS SUMMARY | 2019-07-30 07:17 | XMS REPORT ---
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
--- OUTSIDE RECORDS SUMMARY | 2019-07-30 07:18 | XMS REPORT ---
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
--- OUTSIDE RECORDS SUMMARY | 2019-07-30 07:18 | XMS REPORT ---
:1940 Author Organization eClinicalWorks Care Team Providers Name Role Phone John Perry Provider Role Unavailable Allergies No Known Allergies Problems Problem Type Condition Code Onset Dates Condition Statu s Assessment Atrial flutter, unspecified type I48.92 Active Assessment Stented coronary artery Z95.5 Acti ve Assessment Coronary artery disease involving I25.110 Active [place] coronary artery of [place] heart with unstable angina pectoris Problem Mixed [...] Problem Coronary artery disease involving I25.110 Active [place] coronary artery of [place] heart with unstable angina pectoris Problem At risk for falling Z91.81 Active Problem Atherosclerosis of [place] coronary I25.10 Active artery Problem Chronic kidney disease (CKD), stage N18.4 Active IV (severe) Problem Other osteoporosis M81.8 Active Problem Hypertensive heart disease without I11.9 Active heart failure 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
--- OUTSIDE RECORDS SUMMARY | 2019-07-30 07:18 | XMS REPORT ---
[...] Assessment Coronary artery disease involving I25.110 Active [place] coronary artery of [place] heart with unstable angina pectoris Assessment senior living current 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 Z79.4 Active Assessment [...] of [place] heart with unstable angina pectoris Assessment Cervical stenosis of spine M48.02 A ctive Problem Adult BMI 36.0-36.9 kg/sq m Z68.36 Active Assessment Adult BMI 36.0-36.9 kg/sq m Z68.36 Active Problem Stented coronary artery Z95.5 Acti ve Assessment H/O stroke without residual Z86.73 Active deficits Problem 3-vessel coronary artery disease I25.10 Active Assessment 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 Ac tive classified elsewhere Problem Atherosclerosis of [place] coronary I25.10 Active artery Assessment Hypertensive heart disease without I11.9 Active heart failure Problem 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 Ac tive classified elsewhere Assessment Left sided numbness R20.0 Active Problem Other osteoporosis M81.8 Active Assessment Proteinuria, unspecified R80.9 Act [place] Problem At risk for falling Z91.81 Active Assessment History of coronary artery stent Z95.5 Active placement Problem 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 Active Assessment Mixed hyperlipidemia E78.2 Active Problem Cervical stenosis of spine M48.02 A ctive Problem Chronic kidney disease, stage 4 N18.4 Active (severe) Problem Hypertensive heart disease without I11.9 Active heart failure Medications Medication Code Code Instructions Start End Status Dosage System Date Date Ranolazine ER [facility] 78919533053 500 MG Oral Active TA KE 1 TABLET BY MOUTH TWICE A DAY Lactobacillus NDC 0 Active not define d Calcitriol [facility] 56988216785 0.5 MCG Active TAKE 1 CAPSULE BY MOUTH EVERY DAY Folic Acid [facility] 82939439973 1 MG Active TAKE 1 TABLET BY MOUTH EVERY DAY Bumetanide [facility] 18663711832 1 MG Oral Active TAKE 1 TABLET BY MOUTH TWICE A DAY Ranolazine ER [facility] 51313039680 500 MG Orally May Active 1 tablet Twice a day 2019 Nitrostat [facility] 97901340951 0.4 MG Active as directe d Sublingual 3 doses within 15 minutes PRN CHEST PAIN Senna S [facility] 91648606313 8.6-50 MG Active 1 tablet i n Orally Once a the evenin g day as needed Protonix [facility] 75120365398 40 MG Orally Active 1 pack et Once a day mixed with apple juice or applesauce Cyanocobalamin [facility] [place] [address]-25 1000 MCG Active 1 tablet Orally Once a day Tradjenta [facility] 19296000477 5 MG Orally Active 1 tabl et Once a day Calcitriol [facility] 47710107877 0.5 MCG Orally Active 1 capsule Once a day Brilinta [facility] 57694742609 90 MG Orally Chyna Active 1 tabl et Twice a day 2019 Aspir-Low ND 44506849725 81 MG Orally Active 1 tab let Once a day Cranberry [facility] 050[address]-84511 Active not define d Extract Brilinta [facility] 40124841737 90 MG Oral Active TAKE 1 TABLET BY MOUTH TWICE A DAY Clopidogrel [facility] 77812376369 75 MG Orally Inactive 1 tablet Bisulfate Once a day BD Pen Needle [facility] 62400754425 31G X 5 MM Active USE Mini U/F DIRECTED Atorvastatin [facility] 28871731481 80 MG Active TAKE 1 Calcium TABLET BY MOUTH EVERY DAY Tresiba [facility] 33422108666 200 UNIT/ML Active 14 units FlexTouch Subcutaneous daily Thiamine HCl [facility] 60253897259 100 MG Orally Active 1 tablet Once a day Lipitor [facility] 73024933243 80 MG Orally Active 1 table t Once a day Vitamin D-3 [facility] 65656339360 5000 UNIT Active as dir ected Orally Ferrous Sulfate [facility] 99302593764 325 (65 Fe) MG Activ e TAKE 1 Oral TABLET BY MOUTH TWICE A DAY Metoprolol [facility] 97028370285 50 MG Orally Active 1 ta blet Tartrate Twice a day with food Results No Known Results Summary Purpose eClinicalWorks Submission
--- OUTSIDE RECORDS SUMMARY | 2019-07-30 07:18 | XMS REPORT ---
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
--- OUTSIDE RECORDS SUMMARY | 2019-07-30 07:18 | XMS REPORT ---
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
[2019-07-30] MEDS ORDERED: FENTANYL CITR 100 MCG/2 ML ONE (07:37)
[2019-07-30] MEDS ORDERED: ATROPINE SULF 1 MG/10 ML SYR IV ONE (07:37)
[2019-07-30] MEDS ORDERED: MIDAZOLAM HCL 2 MG/2 ML INJ ONE (07:37)
[2019-07-30 08:00] VITALS: TEMP 97.4
[2019-07-30] MEDS ORDERED: INSULIN -REGULAR HUMAN 50 UNIT/0.5 ML ML ONE (08:55)
[2019-07-30] MEDS ORDERED: NITROGLYCERIN 0.4 MG/TAB SL ONE (08:56)
[2019-07-30] MEDS: NITROGLYCERIN 0.4 MG/TAB SL PRN ×2 (09:15→09:53)
[2019-07-30 09:49] LABS: Protime INR 0.93
[2019-07-30 10:45] VITALS: BP 138/64; O2SAT 96
--- NOTE | 2019-07-30 11:44 | EKG ---
Test Date: 2019-07-30 Test Time: 08:32:28 Technical Adjuster: BEN MEASUREMENT RESULTS: Intervals: Rate: 80 WY: 206 QRSD: 124 QT: 422 QTc: 486 [place]: P: 81 WY: 206 QRS: 53 T: 217 INTERPRETIVE STATEMENTS: Normal sinus rhythm Nonspecific intraventricular conduction delay ST & T wave abnormality, consider inferior ischemia ST & T wave abnormality, consider anterolateral ischemia Abnormal ECG Compared to ECG 05/27/2019 05:41:09 Intraventricular conduction delay now present Possible ischemia now present Left bundle-branch block no longer present Prolonged QT interval no longer present ST (T wave) deviation still present Electronically Signed On 07-30-19 11:43:02 CDT by Portillo Arteaga
--- NOTE | 2019-07-31 00:58 | OP ---
Date of Procedure: 07/30/2019 Surgeon: Portillo Arteaga MD Furnace Roaster: Dequan Ramesh. History: Ms. Gonzalez is a 79-year-old white woman with history of coronary artery disease, renal in sufficiency, diabetes, hypertension, dyslipidemia, status post multiple stents in the left main, circ umflex, and RCA with constant chest pain that has been worsening, admitted for catheterization. Procedure In Detail: She was brought to the excavation laborer as an outpatient today, 07/30/2019. She was pr epped and draped in the routine sterile fashion. She was given Mucomyst before the procedure. A 6-F rench sheath introduced in the right common femoral artery successfully. The JR4 catheter and JL4 ca theter were used to cannulate the right main and the left main respectively. Her LAD stent and left main stent and circumflex stent were wide open. She had about a 50% to 60% distal OM2 stenosis. Her RCA was completely occluded. All her stents in the RCA were completely occluded, but she had excell ent collaterals from the LAD and the circumflex system to the RCA. The patient tolerated the procedu re well. There were no complications. Blood loss was 5 mL. Anesthesia: Total conscious sedation was 30 minutes. Final Diagnoses: Severe coronary artery disease, patent left main circumflex stent, moderate disease in the distal OM-2. A completely occluded RCA with collaterals from the left system. Plan: Plan is for medical therapy. Patient is not a candidate for bypass surgery at this point. I will have her increase her Ranexa from 250 b.i.d. to 500 b.i.d. I think the need to send Ms. Lino thompson for surgery just for her RCA is unnecessary considering her renal status and her refusal to get blood transfusion. The patient can go home today and I will see her in the office in the next couple weeks. ALEJANDRO/AIMEEL Voice ID: [id number] Report ID: [id number]
== END 2019-07-30 10:40 | disposition home or self-care (01) ==
LOC: CCL 06:35
DX: I25.119 Atherosclerotic heart disease of native coronary artery with unspecified angina pectoris (principal); I25.82 Chronic total occlusion of coronary artery; I65.23 Occlusion and stenosis of bilateral carotid arteries; I13.0 Hypertensive heart and chronic kidney disease with heart failure and stage 1 through stage 4 chronic kidney disease, or unspecified chronic kidney disease; I50.32 Chronic diastolic (congestive) heart failure; N18.4 Chronic kidney disease, stage 4 (severe); E11.22 Type 2 diabetes mellitus with diabetic chronic kidney disease; I70.209 Unspecified atherosclerosis of native arteries of extremities, unspecified extremity; E78.5 Hyperlipidemia, unspecified; E66.9 Obesity, unspecified; Z68.29 Body mass index [BMI] 29.0-29.9, adult; Z95.5 Presence of coronary angioplasty implant and graft; Z82.49 Family history of ischemic heart disease and other diseases of the circulatory system
CPT/HCPCS: 93005; 36415; 85610; 82947 ×3; 85730; 93454; C1893; J2250; J3010; J7040

== ENCOUNTER 2019-09-01 14:40 | Emergency (ER) | payer OTHER ==
--- OUTSIDE RECORDS SUMMARY | 2019-09-01 14:45 | XMS REPORT | Clinical Summary ---
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 clopidogrel Take 1 tablet by 0 D iscontinued (PLAVIX) 75 mg mouth daily. 020 tablet RESTASIS 0.05 % Place 1 drop into 1 Discontinued ophthalmic both eyes 2 (two) 9 020 emulsion times daily. acetaminophen Take 2 tablets 0 D iscontinued (TYLENOL) 500 MG (1,000 mg total) by 9 020 tablet mouth every 6 (six) hours as needed. amiodarone Take 1 tablet (200 0 Discontinued (PACERONE) 200 MG mg total) by mouth 9 019 tablet daily. aspirin 81 MG Take 1 tablet (81 0 Discontinued chewable tablet mg total) by mouth 9 020 daily. atorvastatin Take 1 tablet (80 0 (LIPITOR) 80 MG mg total) by mouth 9 020 tablet nightly. bumetanide (BUMEX) Take 1 tablet (0.5 0 Discontinued 0.5 MG tablet mg total) by mouth 9 019 2 (two) times daily with breakfast and dinner. cyanocobalamin Inject 1 mL (1,000 0 Discontinued (VITAMIN B-12) mcg total) 9 020 1,000 mcg/mL intramuscularly injection daily. folic acid Take 1 tablet (1 mg 0 (FOLVITE) 1 MG total) by mouth 9 020 tablet daily. glucagon, human Inject 1 mL [...] ipratropium Take 2.5 mLs (0.5 75 mL Discontinued (ATROVENT) 0.02 % mg total) by [...] daily. nitroglycerin Put 1 pill under 0 (NITROSTAT) 0.4 MG tongue every 5min 9 020 SL tablet as needed for chest pain.No more than 3 doses in 15min.. mINOCYCLine Take 1 capsule (100 0 Discontinued (MINOCIN,DYNACIN) mg total) by mouth 9 020 100 MG capsule every 12 (twelve) hours Continue as long as patient has open, draining wound. metoprolol Take 1 tablet (25 0 D [...] Take 1 tablet (325 180 tablet 0 02/21 Discontinued 325 (65 FE) MG mg total) [...] of spine 01/30/2019 Coronary artery disease involving united [place] coronary simran ry of united [place] heart 01/30/2019 H/O stroke without residual deficits [...] RN 05/28/2019 Surgery Spencer Todd & FADI Choe MD 05/27/2019 Hospital Encounter Cardiac Intensive Care [place], Chest pain, - Radha unspecified typ e 05/29/2019 MD Reji (Primary Dx) Spencer Todd MD Yoon, Alyssa Hyunna, MD 05/27/2019 Orders Only General Internal Medicine 05/27/2019 Travel 03/26/2019 Documentation Smitha Mcpherson RN 03/22/2019 Surgery Spencer Todd MD 03/22/2019 Anesthesia Event Molly Guerin MD 03/21/2019 Anesthesia Event Gastroenterology Geraldine Zamora MD 03/21/2019 Surgery Gastroenterology Nely Clinton [facility] COPY MD Daniel 03/20/2019 Orders Only General Internal Medicine 03/20/2019 Travel 03/19/2019 Hospital Encounter Cardiology Fredrick Silva Atrial fl utter, - MD Latrell paroxysmal ([facility]) 03/23/2019 [place] Bojorquez (Primary Dx) Jamaica Singh MD 01/29/2019 Orders Only General Internal Medicine 01/26/2019 Orders Only General Internal Medicine 01/26/2019 Travel 01/25/2019 Hospital Encounter Cardiology Bandeli, Unstable angina ([facility]) (Primary Dx); - Juanito NSTEMI (non-ST elevated myocardial infarction) ([facility]) 01/30/2019 MD Andrea Lawrence Chau Le, MD 01/04/2019 Documentation Smitha Mcpherson RN 12/24/2018 Surgery Spencer Todd & FADI Choe MD 12/20/2018 Hospital Encounter Cardiology Lorraine, NSTEMI (n on-ST elevated myocardial infarction) ([facility]) (Primary Dx); - Papito Braswell, Unstable angina ([facility]) 12/25/2018 Puneet García MD 12/20/2018 Travel 11/12/2018 Spencer Vazquez & FADI Choe MD 11/11/2018 Orders Only General Internal Medicine 11/10/2018 Hospital Encounter Cardiology Spencer Todd NSTEMI s/ p Impella PCI by Dr. 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) 11/10/2018 Travel 09/13/2018 Documentation Research Iveth Aguilar 09/13/2018 Documentation Research Iveth Aguilar after 08/31/2018 Social History Tobacco Use Types Packs/Day Years [...] 05/29/2019 2:00 PM CDT Inhaled Oxygen Concentration - - Weight 84.8 kg (186 lb 15.2 oz) 05/29/2019 4:0 0 AM CDT Height 154.9 cm (5' 1") 05/27/2019 11:00 PM CDT Body Mass Index 35.32 05/29/2019 4:00 AM CDT Plan of Treatment Not on file Implants Implanted Type Area Rail Car Operator Device Shelf Model / Identifier Expiration Serial / Date Lot Stent Bettie Caballero [id number] - [id number] IMPLANTS N/A: BOSTON [id number] 04/04/2020 [id number] / Implanted: Qty: 1 on 08/01/2018 by Spencer Todd MD Corona ry SCI:INTERV / CARDIOLOGY [id number] Stent Synergy Mr [id number] - [id number] IMPLANTS N/A: BOSTON [id number] 04/04/2020 [id number] / Implanted: Qty: 1 on 08/01/2018 by Spencer Todd MD [place] ry SCI:INTERV / CARDIOLOGY [id number] Stent Synergy Mr [id number] - [id number] IMPLANTS N/A: BOSTON [id number] 04/01/2020 [id number] / Implanted: Qty: 1 on 08/01/2018 by Spencer Todd MD [place] ry SCI:INTERV / CARDIOLOGY [id number] Stent Synergy Otw [id number] - [id number] IMPLANTS Left: BOSTON [id number] 05/16/2020 [id number] / Implanted: Qty: 1 on 08/07/2018 by Spencer Todd MD Corona ry SCI:INTERV / CARDIOLOGY [id number] Stent Synergy Otw [id number] - [id number] IMPLAN TS Right: BOSTON [id number] 04/30/2020 [id number] / Implanted: Qty: 1 on 08/07/2018 by Spencer Todd MD Corona ry SCI:INTERV / CARDIOLOGY [id number] Stent Synergy Otw 2.27w69kh [id number] - [id number] IMPLAN TS Right: BOSTON [id number] 05/21/2020 [id number] / Implanted: Qty: 1 on 08/07/2018 by Spencer Todd MD Cor[place] ry SCI:INTERV / CARDIOLOGY [id number] Stent Synergy Mr [id number] - [id number] IMPLANTS Right: BOSTON [id number] 04/10/2020 [id number] / Implanted: Qty: 1 on 08/07/2018 by Spencer Todd MD Corona ry SCI:INTERV / CARDIOLOGY [id number] Stent Synergy Otw [id number] - [id number] IMPLAN TS Right: BOSTON [id number] 04/15/2020 [id number] / Implanted: Qty: 1 on 08/07/2018 by Spencer Todd MD Corona ry SCI:INTERV / CARDIOLOGY [id number] Stent Synergy Otw [id number] - [id number] IMPLANTS BOSTON [id number] 08/07/2020 [id number] / Implanted: Qty: 1 on 11/12/2018 by Spencer Todd MD SCI:INTERV / CARDIOLOGY [id number] Stent Synergy Mr [id number] - [id number] IMPLANTS Right: BOSTON [id number] 09/25/2020 [id number] / Implanted: Qty: 1 on 03/22/2019 by Spencer Todd MD Corona ry SCI:INTERV / CARDIOLOGY [id number] Procedures Procedure Name Priority Date/Time Associated Comments [...] section. VASCULAR DIAGRAM -SCAN 03/27/2019 2:02 PM SHIPWRIGHT SUPERVISOR RHYTHM STRIP - SCAN 03/26/2019 2:31 PM SHIPWRIGHT SUPERVISOR VASCULAR DIAGRAM -SCAN 03/26/2019 8:41 AM SHIPWRIGHT SUPERVISOR REPORT OF PROCEDURE - 03/26/2019 8:41 ENDOSCOPY SCAN AM SHIPWRIGHT SUPERVISOR CARDIAC CATH REPORT - 03/26/2019 8:41 SCAN AM SHIPWRIGHT SUPERVISOR CARDIAC CATH REPORT - 03/26/2019 8:41 SCAN AM SHIPWRIGHT SUPERVISOR RHYTHM STRIP - SCAN 03/26/2019 8:41 AM SHIPWRIGHT SUPERVISOR PERIPHERAL VASCULAR 03/23/2019 9:20 REPORT - SCAN PM SHIPWRIGHT SUPERVISOR POCT-GLUCOSE METER Routine 03/23/2019 11:39 Resul ts for this AM SHIPWRIGHT SUPERVISOR procedure are i n the results section. POCT-GLUCOSE METER Routine 03/23/2019 8:22 Resul ts for this AM SHIPWRIGHT SUPERVISOR procedure are i n the results section. COMPREHENSIVE Routine 03/23/2019 5:27 Results fo r this METABOLIC PANEL AM SHIPWRIGHT SUPERVISOR procedure ar e in the results section. CBC W/PLT COUNT & AUTO Routine 03/23/2019 3:36 R esults for this DIFFERENTIAL AM SHIPWRIGHT SUPERVISOR procedure are i n the results section. CBC W/PLT COUNT & AUTO Routine 03/23/2019 3:36 R esults for this DIFFERENTIAL AM SHIPWRIGHT SUPERVISOR procedure are i n the results section. POCT-GLUCOSE METER Routine 03/22/2019 9:57 Resul ts for this PM SHIPWRIGHT SUPERVISOR procedure are i n the results section. ECHOCARDIOGRAM REPORT 03/22/2019 9:20 - SCAN PM SHIPWRIGHT SUPERVISOR CAROTID DOPPLER Routine 03/22/2019 7:42 Results for this BILATERAL PM SHIPWRIGHT SUPERVISOR procedure are i n the results section. POCT-GLUCOSE METER Routine 03/22/2019 5:18 Resul ts for this PM SHIPWRIGHT SUPERVISOR procedure are i n the results section. CBC (HEMOGRAM ONLY) Routine 03/22/2019 3:55 Resu lts for this PM SHIPWRIGHT SUPERVISOR procedure are i n the results section. BASIC METABOLIC PANEL Routine 03/22/2019 3:55 Re sults for this (7) PM SHIPWRIGHT SUPERVISOR procedure are i n the results section. POCT-GLUCOSE METER Routine 03/22/2019 3:00 Resul ts for this PM SHIPWRIGHT SUPERVISOR procedure are i n the results section. 2D ECHO W/ DOPPLER Routine 03/22/2019 2:04 Resul ts for this (CW/PW/COLOR) PM SHIPWRIGHT SUPERVISOR procedure are in the results section. POCT-ACT Routine 03/22/2019 10:59 Results for this AM SHIPWRIGHT SUPERVISOR procedure are i n the results section. POCT-ACT Routine 03/22/2019 10:32 Results for this AM SHIPWRIGHT SUPERVISOR procedure are i n the results section. L CATH & PCI 03/22/2019 10:18 Coronary artery AM SHIPWRIGHT SUPERVISOR disease with angina pectoris, unspecified vessel or lesion type, unspecified whether united [place] or transplanted heart (HCC) Case Notes 1430 POCT-GLUCOSE METER Routine 03/22/2019 7:33 AM SHIPWRIGHT SUPERVISOR Results for this procedure are i n the results section . CBC W/PLT COUNT & AUTO Routine 03/22/2019 2:06 AM SHIPWRIGHT SUPERVISOR Results for this DIFFERENTIAL procedure are i n the results section . LIPID PANEL Routine 03/22/2019 2:06 AM SHIPWRIGHT SUPERVISOR Resu lts for this procedure are i n the results section . PHOSPHORUS Routine 03/22/2019 2:06 AM SHIPWRIGHT SUPERVISOR Resu lts for this procedure are i n the results section . MAGNESIUM Routine 03/22/2019 2:06 AM SHIPWRIGHT SUPERVISOR Resu lts for this procedure are i n the results section . CALCIUM, IONIZED Routine 03/22/2019 2:06 AM SHIPWRIGHT SUPERVISOR Results for this procedure are i n the results section . CBC W/PLT COUNT & AUTO Routine 03/22/2019 2:06 AM SHIPWRIGHT SUPERVISOR Results for this DIFFERENTIAL procedure are i n the results section . B-TYPE NATRIURETIC FACTOR Routine 03/22/2019 2:06 AM SHIPWRIGHT SUPERVISOR Results for this (BNP) procedure are i n the results section . BASIC METABOLIC PANEL (7) Routine 03/22/2019 2:06 AM SHIPWRIGHT SUPERVISOR Results for this procedure are i n the results section . APTT Routine 03/22/2019 2:06 AM SHIPWRIGHT SUPERVISOR Resu lts for this procedure are i n the results section . US ABDOMEN COMPLETE Routine 03/22/2019 12:10 AM SHIPWRIGHT SUPERVISOR Results for this procedure are i n the results section . POCT-GLUCOSE METER Routine 03/21/2019 9:24 PM SHIPWRIGHT SUPERVISOR Results for this procedure are i n the results section . APTT Routine 03/21/2019 6:57 PM SHIPWRIGHT SUPERVISOR Resu lts for this procedure are i n the results section . POCT-GLUCOSE METER Routine 03/21/2019 5:26 PM SHIPWRIGHT SUPERVISOR Results for this procedure are i n the results section . ECG 12-LEAD Routine 03/21/2019 5:24 PM SHIPWRIGHT SUPERVISOR Resu lts for this procedure are i n the results section . 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 TROPONIN I Routine 03/21/2019 3:07 PM Results for this SHIPWRIGHT SUPERVISOR procedure are i n the results section. XR SHOULDER LEFT RHETT 03/21/2019 2:25 PM Resu lts for this COMPLETE MIN 2 VIEWS SHIPWRIGHT SUPERVISOR procedu re are in the results section. POCT-GLUCOSE METER Routine 03/21/2019 12:58 PM Re sults for this SHIPWRIGHT SUPERVISOR procedure are i n the results section. REPORT OF PROCEDURE - 03/21/2019 12:27 PM ENDOSCOPY URL SHIPWRIGHT SUPERVISOR UPPER ENDOSCOPY 03/21/2019 12:00 PM Atypical chest SHIPWRIGHT SUPERVISOR pain APTT Routine 03/21/2019 10:36 AM Results for this SHIPWRIGHT SUPERVISOR procedure are i n the results section. POCT-GLUCOSE METER Routine 03/21/2019 7:39 AM Re sults for this SHIPWRIGHT SUPERVISOR procedure are i n the results section. APTT Routine 03/21/2019 3:19 AM Results for this SHIPWRIGHT SUPERVISOR procedure are i n the results section. BASIC METABOLIC PANEL Routine 03/21/2019 2:23 AM Results for this (7) SHIPWRIGHT SUPERVISOR procedure are i n the results section. CBC (HEMOGRAM ONLY) Routine 03/21/2019 2:22 AM R esults for this SHIPWRIGHT SUPERVISOR procedure are i n the results section. POCT-GLUCOSE METER Routine 03/20/2019 9:46 PM Re sults for this SHIPWRIGHT SUPERVISOR procedure are i n the results section. APTT Routine 03/20/2019 7:09 PM Results for this SHIPWRIGHT SUPERVISOR procedure are i n the results section. POCT-GLUCOSE METER Routine 03/20/2019 6:20 PM Re sults for this SHIPWRIGHT SUPERVISOR procedure are i n the results section. URINALYSIS W/ Routine 03/20/2019 5:57 PM Results for this MICROSCOPIC SHIPWRIGHT SUPERVISOR procedure are i n the results section. CREATININE, RANDOM Routine 03/20/2019 5:57 PM Re sults for this URINE [employer]IPWRIGHT SUPERVISOR procedure are i n the results section. PROTEIN, RANDOM URINE Routine 03/20/2019 5:57 PM Results for this SHIPWRIGHT SUPERVISOR procedure are i n the results section. XR CHEST 1 VIEW Routine 03/20/2019 3:12 PM Resul ts for this PORTABLE/BEDSIDE SHIPWRIGHT SUPERVISOR procedure a re in the results section. TROPONIN I Routine 03/20/2019 12:19 PM Results for this SHIPWRIGHT SUPERVISOR procedure are i n the results section. APTT Routine 03/20/2019 12:19 PM Results for this SHIPWRIGHT SUPERVISOR procedure are i n the results section. POCT-GLUCOSE METER Routine 03/20/2019 11:45 AM Re sults for this SHIPWRIGHT SUPERVISOR procedure are i n the results section. POCT-GLUCOSE METER Routine 03/20/2019 7:37 AM Re sults for this SHIPWRIGHT SUPERVISOR procedure are i n the results section. TROPONIN I Routine 03/20/2019 5:54 AM Results for this SHIPWRIGHT SUPERVISOR procedure are i n the results section. CBC W/PLT COUNT & AUTO Routine 03/20/2019 12:43 AM Results for this DIFFERENTIAL SHIPWRIGHT SUPERVISOR procedure are i n the results section. APTT Routine 03/20/2019 12:43 AM Results for this SHIPWRIGHT SUPERVISOR procedure are i n the results section. TROPONIN I Routine 03/20/2019 12:43 AM Results for this SHIPWRIGHT SUPERVISOR procedure are i n the results section. HEMOGLOBIN A1C Routine 03/20/2019 12:43 AM Result s for this SHIPWRIGHT SUPERVISOR procedure are i n the results section. MAGNESIUM Routine 03/20/2019 12:43 AM Results for this SHIPWRIGHT SUPERVISOR procedure are i n the results section. BASIC METABOLIC PANEL Routine 03/20/2019 12:43 AM Results for this (7) SHIPWRIGHT SUPERVISOR procedure are i n the results section. CBC W/PLT COUNT & AUTO Routine 03/20/2019 12:43 AM Results for this DIFFERENTIAL SHIPWRIGHT SUPERVISOR procedure are i n the results section. 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 RHYTHM STRIP - SCAN 02/06/2019 11:22 AM SHIPWRIGHT SUPERVISOR REPORT OF PROCEDURE - 02/01/2019 9:00 AM SHIPWRIGHT SUPERVISOR ENDOSCOPY SCAN RHYTHM STRIP - SCAN 02/01/2019 9:00 AM SHIPWRIGHT SUPERVISOR POCT-GLUCOSE METER Routine 01/30/2019 9:05 AM SHIPWRIGHT SUPERVISOR Results for this procedure are i n the results section . ECG 12-LEAD Routine 01/30/2019 6:27 AM SHIPWRIGHT SUPERVISOR Resu lts for this procedure are i n the results section . CBC W/PLT COUNT & AUTO Routine 01/30/2019 5:56 AM SHIPWRIGHT SUPERVISOR Results for this DIFFERENTIAL procedure are i n the results section . URIC ACID Routine 01/30/2019 5:56 AM SHIPWRIGHT SUPERVISOR Resu lts for this procedure are i n the results section . PHOSPHORUS Routine 01/30/2019 5:56 AM SHIPWRIGHT SUPERVISOR Resu lts for this procedure are i n the results section . MAGNESIUM Routine 01/30/2019 5:56 AM SHIPWRIGHT SUPERVISOR Resu lts for this procedure are i n the results section . CBC W/PLT COUNT & AUTO Routine 01/30/2019 5:56 AM SHIPWRIGHT SUPERVISOR Results for this DIFFERENTIAL procedure are i n the results section . CALCIUM, IONIZED Routine 01/30/2019 5:56 AM SHIPWRIGHT SUPERVISOR Results for this procedure are i n the results section . B-TYPE NATRIURETIC FACTOR Routine 01/30/2019 5:56 AM SHIPWRIGHT SUPERVISOR Results for this (BNP) procedure are i n the results section . BASIC METABOLIC PANEL (7) Routine 01/30/2019 5:56 AM SHIPWRIGHT SUPERVISOR Results for this procedure are i n the results section . POCT-GLUCOSE METER Routine 01/29/2019 9:09 PM SHIPWRIGHT SUPERVISOR Results for this procedure are i n the results section . POCT-GLUCOSE METER Routine 01/29/2019 5:02 PM SHIPWRIGHT SUPERVISOR Results for this procedure are i n the results section . PROTEIN, RANDOM URINE Routine 01/29/2019 2:24 PM SHIPWRIGHT SUPERVISOR Results for this procedure are i n the results section . URINALYSIS W/ MICROSCOPIC Routine 01/29/2019 2:24 PM SHIPWRIGHT SUPERVISOR Results for this procedure are i n the results section . CREATININE, RANDOM URINE Routine 01/29/2019 2:24 PM SHIPWRIGHT SUPERVISOR Results for this procedure are i n the results section . SODIUM, RANDOM URINE Routine 01/29/2019 2:24 PM SHIPWRIGHT SUPERVISOR Results for this procedure are i n the results section . PHOSPHORUS RHETT 01/29/2019 1:24 PM SHIPWRIGHT SUPERVISOR Resu lts for this procedure are i n the results section . MAGNESIUM RHETT 01/29/2019 1:24 PM SHIPWRIGHT SUPERVISOR Resu lts for this procedure are i n the results section . BASIC METABOLIC PANEL (7) RHETT 01/29/2019 1:24 PM SHIPWRIGHT SUPERVISOR Results for this procedure are i n the results section . XR CHEST 1 VIEW Routine 01/29/2019 1:14 PM SHIPWRIGHT SUPERVISOR R esults for this PORTABLE/BEDSIDE procedure a re in the results section . POCT-GLUCOSE METER Routine 01/29/2019 11:38 AM SHIPWRIGHT SUPERVISOR Results for this procedure are i n the results section . POCT-GLUCOSE METER Routine 01/29/2019 7:45 AM SHIPWRIGHT SUPERVISOR Results for this procedure are i n the results section . ECG 12-LEAD Routine 01/29/2019 6:42 AM SHIPWRIGHT SUPERVISOR Procedure Note - Interface, External Ris In - 01/29/2019 6:53 AM SHIPWRIGHT SUPERVISOR Ventricular Rate 66 BPM Atrial Rate 66 BPM P-R Interval 190 ms QRS Duration 100 ms Q-T Interval 460 ms QTC Calculation(Bazett) 482 ms P Wallace 60 degrees R Wallace 26 degrees T Wallace 128 degrees Normal sinus rhythm Nonspecific T wave abnormali ty Prolonged QT Abnormal ECG When compared with ECG of 22:51, No significant change was fo und ECG 12-LEAD Routine 01/29/2019 6:42 AM Results for this SHIPWRIGHT SUPERVISOR procedure are i n the results section. CBC (HEMOGRAM ONLY) Routine 01/29/2019 5:04 AM R esults for this SHIPWRIGHT SUPERVISOR procedure are i n the results section. POCT-GLUCOSE METER Routine 01/28/2019 9:56 PM Re sults for this SHIPWRIGHT SUPERVISOR procedure are i n the results section. ECHOCARDIOGRAM REPORT - 01/28/2019 9:21 PM SCAN SHIPWRIGHT SUPERVISOR C. DIFFICILE GDH TOXIN Routine 01/28/2019 6:41 PM Results for this SHIPWRIGHT SUPERVISOR procedure are i n the results section. OCCULT BLOOD, STOOL Routine 01/28/2019 6:40 PM R esults for this SHIPWRIGHT SUPERVISOR procedure are i n the results section. POCT-GLUCOSE METER Routine 01/28/2019 11:46 AM Re sults for this SHIPWRIGHT SUPERVISOR procedure are i n the results section. 2D ECHO W/ DOPPLER Routine 01/28/2019 11:25 AM Re sults for this (CW/PW/COLOR) SH[employer]WRIGHT SUPERVISOR procedure are in the results section. APTT Routine 01/28/2019 8:48 AM Results for this SHIPWRIGHT SUPERVISOR procedure are i n the results section. POCT-GLUCOSE METER Routine 01/28/2019 8:28 AM Re sults for this SHIPWRIGHT SUPERVISOR procedure are i n the results section. APTT Routine 01/28/2019 4:28 AM Results for this SHIPWRIGHT SUPERVISOR procedure are i n the results section. BASIC METABOLIC PANEL Routine 01/28/2019 4:28 AM Results for this (7) SHIPWRIGHT SUPERVISOR procedure are i n the results section. CBC (HEMOGRAM ONLY) Routine 01/28/2019 4:28 AM R esults for this SHIPWRIGHT SUPERVISOR procedure are i n the results section. POCT-GLUCOSE METER Routine 01/27/2019 10:00 PM Re sults for this SH[employer]WRIGHT SUPERVISOR procedure are i n the results section. APTT Routine 01/27/2019 9:12 PM Results for this SHIPWRIGHT SUPERVISOR procedure are i n the results section. POCT-GLUCOSE METER Routine 01/27/2019 5:39 PM Re sults for this SH[employer]WRIGHT SUPERVISOR procedure are i n the results section. PT/APTT Routine 01/27/2019 4:27 PM Results for this SH[employer]WRIGHT SUPERVISOR procedure are i n the results section. PT/APTT Routine 01/27/2019 12:58 PM Results for this SHIPWRIGHT SUPERVISOR procedure are i n the results section. POCT-GLUCOSE METER Routine 01/27/2019 12:35 PM Re sults for this SHIPWRIGHT SUPERVISOR procedure are i n the results section. POCT-GLUCOSE METER Routine 01/27/2019 9:31 AM Re sults for this SHIPWRIGHT SUPERVISOR procedure are i n the results section. ECG 12-LEAD Routine 01/27/2019 7:06 AM Results for this SHIPWRIGHT SUPERVISOR procedure are i n the results section. APTT Routine 01/27/2019 5:55 AM Results for this SHIPWRIGHT SUPERVISOR procedure are i n the results section. POCT-GLUCOSE METER Routine 01/27/2019 3:52 AM Re sults for this SHIPWRIGHT SUPERVISOR procedure are i n the results section. BASIC METABOLIC PANEL Routine 01/27/2019 3:47 AM Results for this (7) SHIPWRIGHT SUPERVISOR procedure are i n the results section. APTT Routine 01/27/2019 3:47 AM Results for this SHIPWRIGHT SUPERVISOR procedure are i n the results section. CBC (HEMOGRAM ONLY) Routine 01/27/2019 3:47 AM R esults for this SHIPWRIGHT SUPERVISOR procedure are i n the results section. POCT-GLUCOSE METER Routine 01/26/2019 9:23 PM Re sults for this SHIPWRIGHT SUPERVISOR procedure are i n the results section. APTT Routine 01/26/2019 6:42 PM Results for this SHIPWRIGHT SUPERVISOR procedure are i n the results section. PLATELET COUNT Routine 01/26/2019 6:42 PM Result s for this SHIPWRIGHT SUPERVISOR procedure are i n the results section. POCT-GLUCOSE METER Routine 01/26/2019 1:34 PM Re sults for this SHIPWRIGHT SUPERVISOR procedure are i n the results section. POCT-GLUCOSE METER Routine 01/26/2019 8:21 AM Re sults for this SHIPWRIGHT SUPERVISOR procedure are i n the results section. ECG 12-LEAD Routine 01/26/2019 8:12 AM Results for this [employer] procedure are i n the results section. POCT-GLUCOSE METER Routine 01/26/2019 5:42 AM Re sults for this [employer] procedure are i n the results section. CBC (HEMOGRAM ONLY) Routine 01/26/2019 5:34 AM R esults for this [employer] procedure are i n the results section. TROPONIN I STAT 01/26/2019 5:34 AM Results for this [employer] procedure are i n the results section. LIPOPROTEIN (A) Routine 01/26/2019 5:34 AM Resul ts for this [employer] procedure are i n the results section. XR CHEST 1 VIEW Routine 01/25/2019 11:56 PM Resul ts for this PORTABLE/BEDSIDE [employer] procedure a re in the results section. CBC W/PLT COUNT & AUTO Routine 01/25/2019 11:19 PM Results for this DIFFERENTIAL [employer] procedure are i n the results section. APTT Routine 01/25/2019 11:19 PM Results for this [employer] procedure are i n the results section. APTT Routine 01/25/2019 11:19 PM Results for this [employer] procedure are i n the results section. PROTHROMBIN TIME/INR Routine 01/25/2019 11:19 PM Results for this [employer] procedure are i n the results section. CBC W/PLT COUNT & AUTO Routine 01/25/2019 11:19 PM Results for this DIFFERENTIAL [employer] procedure are i n the results section. B-TYPE NATRIURETIC Routine 01/25/2019 11:19 PM Re sults for this FACTOR (BNP) [employer] procedure are i n the results section. TROPONIN I STAT 01/25/2019 11:19 PM Results for this [employer] procedure are i n the results section. COMPREHENSIVE METABOLIC Routine 01/25/2019 11:19 PM Results for this PANEL [employer] procedure are i n the results section. MAGNESIUM Routine 01/25/2019 11:19 PM Results for this [employer] procedure are i n the results section. ECG 12-LEAD Routine 01/25/2019 10:51 PM Results for this [employer] procedure are i n the results section. POCT-GLUCOSE METER Routine 01/25/2019 10:10 PM Re sults for this [employer] procedure are i n the results section. RHYTHM STRIP - SCAN 01/01/2019 11:34 AM [employer]PER[employer] REPORT OF PROCEDURE - 12/27/2018 7:06 AM ENDOSCOPY SCAN [employer] CARDIAC CATH REPORT - 12/27/2018 7:06 AM SCAN [employer] RHYTHM STRIP - SCAN 12/27/2018 7:06 AM [employer] POCT-GLUCOSE METER Routine 12/25/2018 11:53 AM Re sults for this [employer]PER[employer] procedure are i n the results section. POCT-GLUCOSE METER Routine 12/25/2018 6:53 AM Re sults for this [employer] procedure are i n the results section. CALCIUM, IONIZED Routine 12/25/2018 4:14 AM Resu lts for this [employer] procedure are i n the results section. CBC W/PLT COUNT & AUTO Routine 12/25/2018 4:13 AM Results for this DIFFERENTIAL [employer] procedure are i n the results section. PHOSPHORUS Routine 12/25/2018 4:13 AM Results for this [employer] procedure are i n the results section. MAGNESIUM Routine 12/25/2018 4:13 AM Results for this [employer]PER[employer] procedure are i n the results section. B-TYPE NATRIURETIC Routine 12/25/2018 4:13 AM Re sults for this FACTOR (BNP) [employer] procedure are i n the results section. CBC W/PLT COUNT & AUTO Routine 12/25/2018 4:13 AM Results for this DIFFERENTIAL [employer] procedure are i n the results section. BASIC METABOLIC PANEL Routine 12/25/2018 4:13 AM Results for this (7) [employer] procedure are i n the results section. POCT-GLUCOSE METER Routine 12/24/2018 10:48 PM Re sults for this [employer] procedure are i n the results section. POCT-ACT Routine 12/24/2018 10:03 PM Results for this [employer]PER[employer] procedure are i n the results section. POCT-GLUCOSE METER Routine 12/24/2018 8:12 PM Re sults for this [employer] procedure are i n the results section. POCT-ACT Routine 12/24/2018 5:18 PM Results for this [employer]PER[employer] procedure are i n the results section. POCT-ACT Routine 12/24/2018 4:51 PM Results for this [employer] procedure are i n the results section. L CATH & PCI 12/24/2018 2:49 PM Non-STEMI (non-ST [employer] elevated myocardial infarction) (HCC) POCT-GLUCOSE METER Routine 12/24/2018 12:46 PM Re sults for this [employer]WR[employer] SUPERVISOR procedure are i n the results section. POCT-GLUCOSE METER Routine 12/24/2018 8:25 AM Re sults for this [employer]PER[employer] procedure are i n the results section. APTT Routine 12/24/2018 8:24 AM Results for this [employer]PER[employer] procedure are i n the results section. APTT Routine 12/24/2018 1:13 AM Results for this [employer]PER[employer] procedure are i n the results section. COMPREHENSIVE METABOLIC Routine 12/24/2018 1:13 AM Results for this PANEL [employer] procedure are i n the results section. ECG 12-LEAD Routine 12/23/2018 10:36 PM Results for this [employer]PER[employer]OR procedure are i n the results section. POCT-GLUCOSE METER Routine 12/23/2018 5:53 PM Re sults for this [employer]PER[employer]OR procedure are i n the results section. APTT Routine 12/23/2018 4:08 PM Results for this [employer] SUPERVISOR procedure are i n the results section. POCT-GLUCOSE METER Routine 12/23/2018 12:58 PM Re sults for this [employer]PERVISOR procedure are i n the results section. POCT-GLUCOSE METER Routine 12/23/2018 8:40 AM Re sults for this [employer]PER[employer] procedure are i n the results section. CBC W/PLT COUNT & AUTO Routine 12/23/2018 5:20 AM Results for this DIFFERENTIAL [employer]PER[employer]OR procedure are i n the results section. TROPONIN I Routine 12/23/2018 5:20 AM Results for this [employer]PER[employer]OR procedure are i n the results section. APTT Routine 12/23/2018 5:20 AM Results for this [employer]PER[employer]OR procedure are i n the results section. B-TYPE NATRIURETIC Routine 12/23/2018 5:20 AM Re sults for this FACTOR (BNP) [employer] procedure are i n the results section. CBC W/PLT COUNT & AUTO Routine 12/23/2018 5:20 AM Results for this DIFFERENTIAL [employer]PERVISOR procedure are i n the results section. PHOSPHORUS Routine 12/23/2018 5:20 AM Results for this [employer]PER[employer] procedure are i n the results section. MAGNESIUM Routine 12/23/2018 5:20 AM Results for this [employer]PER[employer]OR procedure are i n the results section. COMPREHENSIVE METABOLIC Routine 12/23/2018 5:20 AM Results for this PANEL [employer] procedure are i n the results section. CALCIUM, IONIZED Routine 12/23/2018 5:20 AM Resu lts for this [employer]PER[employer]OR procedure are i n the results section. ECG 12-LEAD Routine 12/23/2018 4:44 AM Results for this [employer]PER[employer] procedure are i n the results section. [...] 456 ms QTC Calculation(Bazett) 519 ms P Wallace 75 degrees R Wallace 50 degrees T Wallace 44 degrees Normal sinus rhythm Incomplete left [...] 452 ms QTC Calculation(Bazett) 494 ms P Wallace 73 degrees R Wallace 34 degrees T Wallace 92 degrees Normal sinus rhythm Cannot rule out Anterior inf arct , age undetermined Abnormal ECG When compared with ECG of 08:00, Minimal criteria for Anterio r infarct are now Present ST no longer depressed in An terior leads ECG 12-LEAD STAT 11/11/2018 12:12 AM CDT Resu lts for this procedure are in the results section . after 08/31/2018 Results VASCULAR DIAGRAM -SCAN (05/31/2019 12:41 PM CDT)Only the most recent of4 results within the time period is included. Narrative Performed At This result has an attachment that is no t available. CARDIAC CATH REPORT - SCAN (05/31/2019 10:31 AM CDT) Narrative Performed At This result has an attachment that is no t available. RHYTHM STRIP - SCAN (05/31/2019 10:31 AM CDT)Only the most recent of8 results within the time period is included. Narrative Performed At This result has an attachment that is no t available. PERIPHERAL VASCULAR REPORT - SCAN (05/29/2019 9:10 PM CDT)Only the most recent of2 resultswithin the time period is included. Narrative Performed At This result has an attachment that is no t available. POC-Glucose meter (05/29/2019 1:24 PM CDT)Only the most recent of62 results within the time period is included. POC-Glucose Meter 298 (H)Comment: : Notified 70 - 110 mg/dL [facility] RN/MD: TESTED AT [address], [address]: Quill Reamer/Primary Clinician ID = [id number] for LIZ WATSON Specimen Blood Performing Organization Address City/State/Zipcode Phone Number [address] [address] CENTER EKG-SCANNED (05/29/2019 12:10 PM CDT)Only the most recent of6 resultswithin the time period is included. Narrative Performed At This result has an attachment that is no t available. Platelet Aggregation: Drug Effect (05/29/2019 9:27 AM CDT) Arachadonic Acid 13 (L) 63 - 89 % [facility] ER Interpretation Decreased response to arachi donic acid suggests aspirin-like effect. [facility] Decreased aggregation with A DP which indicates platelet dysfunction that may be due to medication effect, uremia, or other platelet function disorders.Clinical correlation is required. [facility] Pathologist: Talia Villarreal MD [facility] (electronic signature) [facility] [place] Platelets 184 150 - 450 K/CU MM [facility] ER ADP 11 (L) 62 - 100 % [facility] ER Platelet Rich Plasma 243 200 - 300 k/cu mm [facility] Specimen Blood Narrative Performed At Platelet function studies by aggregation [facility] methodology on samples with platelet count <75,000/CU MM are unreliable; platelet function assessment should not be based on a single test. Quill Reamer ID - [id number] Performing Organization Address City/[facility]/Zipcode Phone Number [address] [address] CENTER Calcium, Ionized (05/29/2019 4:41 AM CDT)Only the most recent of8 resultswithin the time period is included. Calcium, Ion 1.16 1.12 - 1.27 mmol/L [facility] pH, Blood 7.40 [facility] Specimen Blood Performing Organization Address City/[facility] Cent[facility]ode Phone Number [address] [address] CENTER CBC with platelet count + automated diff (05/29/2019 4:41 AM CDT)Only the most recent of15 resultswithin the time period is included. WBC 6.4 3.5 - 10.5 K/L [facility] RBC 3.26 (L) 3.93 - 5.22 M/L [facility] Hemoglobin 10.1 (L) 11.2 - 15.7 GM/DL [facility] Hematocrit 30.3 (L) 34.1 - 44.9 % [facility] MCV 92.9 79.4 - 94.8 fL [facility] MCH 31.0 25.6 - 32.[address] [facility] MCHC 33.3 32.2 - 35.5 GM/DL [facility] RDW 13.1 11.7 - 14.4 % [facility] Platelets 183 150 - 450 K/CU MM [facility] MPV 9.9 9.4 - 12.[address] [facility] nRBC 0 0 - 0 /100 WBC [facility] ALTH [facility] % Neutros 70 % [facility] ALTH [facility] % Lymphs 19 % [facility] ALTH [facility] % Monos 9 % [facility] ALTH [facility] % Eos 1 % [facility] % Baso 1 % [facility] # Neutros 4.47 1.56 - 6.13 K/L [facility] # Lymphs 1.20 1.18 - 3.74 K/L [facility] # Monos 0.59 (H) 0.24 - 0.36 K/L [facility] # Eos 0.08 0.04 - 0.36 K/L [facility] # Baso 0.04 0.01 - 0.08 K/L [facility] Immature Granulocytes-Relative 0 0 - 1 % C HI [facility] Specimen Blood Performing Organization Address City/State/Zipcode Phone Number [facility] [address] [place] [address] CENTER CBC (hemogram only) (05/29/2019 4:41 AM CDT)Only the most recent of10 results within the time period is included. WBC 6.4 3.5 - 10.5 K/L [facility] EAPSYCHIATRIC RBC 3.26 (L) 3.93 - 5.22 M/L [facility] Hemoglobin 10.1 (L) 11.2 - 15.7 GM/DL [facility] Hematocrit 30.3 (L) 34.1 - 44.9 % [facility] MCV 92.9 79.4 - 94.[address] [facility] MCH 31.0 25.6 - 32.2 pg [facility] ALTH [facility] MCHC 33.3 32.2 - 35.5 GM/DL [facility] RDW 13.1 11.7 - 14.4 % [facility] Platelets 183 150 - 450 K/CU MM [facility] MPV 9.9 9.4 - 12.3 fL [facility] ALTH [facility] nRBC 0 0 - 0 /100 WBC [facility] Specimen Blood Performing Organization Address City/[facility] Centercode Phone Number [address] [address] CENTER Uric acid (05/29/2019 4:41 AM CDT)Only the most recent of2 resultswithin the time period is included. Uric Acid 9.0 (H) 2.6 - 7.2 mg/dL [facility] Specimen Blood Narrative Performed At Quill Reamer ID - MELI Ott [facility] Performing Organization Address City/[facility] Centercode Phone Number [facility] [address] [place] [address] CENTER Phosphorus (05/29/2019 4:41 AM CDT)Only the most recent of9 resultswithin the time period is included. Phosphorus 3.7 2.3 - 4.7 mg/dL [facility] Specimen Blood Narrative Performed At Quill Reamer ID - MELI Ott [facility] Performing Organization Address City/[facility] Centercode Phone Number [address] [address] CENTER B-type Natriuretic Factor (BNP) (05/29/2019 4:41 AM CDT)Only the most recent of 11 resultswithin the time period is included. BNP 1,228 (H) 0 - 100 pg/mL [facility] Specimen Blood Narrative Performed At Quill Reamer ID - [facility] Performing Organization Address City/[facility] Centercoks Phone Number [address] [address] CENTER Magnesium (05/29/2019 4:41 AM CDT)Only the most recent of13 resultswithin the time period is included. Magnesium 2.1 1.6 - 2.6 mg/dL [facility] Specimen Blood Narrative Performed At Quill Reamer ID - [facility] Performing Organization Address [facility] Phone Number [address] [address] [place] Creatine Kinase (CK) (05/29/2019 4:41 AM CDT) Total CK 94 29 - 200 U/L [facility] Specimen Blood Narrative Performed At Quill Reamer ID - [facility] Performing Organization Address [facility] Centercoks Phone Number [address] [address] [place] Basic metabolic panel (05/29/2019 4:41 AM CDT)Only the most recent of15 results within the time period is included. Sodium 135 (L) 136 - 145 meq/L [facility] Potassium 3.8 3.5 - 5.1 meq/L [facility] Chloride 98 98 - 107 meq/L [facility] CO2 27 22 - 29 meq/L [facility] BUN 73 (H) 7 - 21 mg/dL [facility] Creatinine 3.31 (H) 0.57 - 1.25 mg/dL [facility] Glucose 269 (H) 70 - 105 mg/dL [facility] Calcium 9.1 8.4 - 10.2 mg/dL [facility] EGFR 13Comment: ESTIMATED GFR IS mL/min/1.73 sq m [facility] NOT ACCURATE CREATININE [facility] CLEARANCE IN PREDICTING GLOMERULAR FILTRATION RATE. ESTIMATED GFR IS NOT APPLICABLE FOR DIALYSIS PATIENTS. Specimen Blood Narrative Performed At Quill Reamer ID - MELI Ott [facility] Performing Organization Address City/State/Zipcode Phone Number [facility] [address] [place] [address] CENTER renal complete (05/29/2019 1:30 AM CDT)Only the most recent of2 results within the time period is included. Specimen Narrative Performed At FINAL REPORT [facility] U/S, RENAL, COMPLETE Comparison 08/02/2018, 03/22/2019 Clinical [...] is stable in size . Signed: Ochoa Wiley MD Report Verified Date/Time:05/29/2019 03:58:20 Procedure Note Interface, External Ris In - 05/29/2019 4:00 AM CDT FINAL REPORT U/S, RENAL, COMPLETE Comparison 08/02/2018, 03/22/2019 Clinical History: OITS Discussion: Sonographic evaluation of the kidneys is [...] is stable in size . Signed: Ochoa Wiley MD Report Verified Date/Time: 05/29/2019 0 3:58:20 Performing Organization Address [facility]ercoks Phone Number [facility] POC ACTIVATED CLOTTING TIME (05/28/2019 8:28 PM CDT)Only the most recent of17 resultswithin the time period is included. Activated Clotting Time 136Comment: : 74-137 sec [facility] seconds, Baseline: TESTED [facility] CENTER AT [address], [address]: Quill Reamer/Primary Clinician ID = [id number] for MARYSOLDARIAN GREGG Specimen Blood Performing Organization Address [facility] Centercode Phone Number [facility] [address] [place] [address] CENTER Urinalysis w/Microscopic (05/28/2019 6:20 PM CDT)Only the most recent of5 resultswithin the time period is included. Color, UA Light Yellow [facility] Clarity, UA Clear [facility] Specific [place], UA 1.012 1.001 - 1.035 [facility] pH, UA 6.0 5.0 - 8.[address] [facility] Protein, UA 20 mg/dL (A) Negative [facility] Glucose, UA 150 mg/dL (A) Negative [facility] Ketones, UA Negative Negative [facility] Bilirubin, UA Negative Negative [facility] Blood, UA Trace (A) Negative [facility] Nitrite, UA Negative Negative [facility] Leukocytes, UA Negative Negative [facility] Urobilinogen, UA 0.2 0.2 - 1.0 mg/dL [facility] RBC, UA 1 /HPF [facility] WBC, UA <1 /HPF [facility] Bacteria, UA Many [facility] Specimen Source [facility] Specimen Urine Narrative Performed At Quill Reamer ID - [auto] [facility] Quill Reamer ID - ny Performing Organization Address City/State/Zipcode Phone Number [facility] [address] [place] [address] CENTER Venous doppler legs bilateral (05/28/2019 5:05 PM CDT) Ejection Fraction [facility] ECHO HEAR TLAB MKCKESSON CPACS Specimen Impressions Performed At Right Impression [facility] ECHO HEARTLAB MKCKESSON CPACS 1. There is [...] are measured in cm Narrative Performed At PV LAB - Lower Extremities DVT Study [facility] ECHO HEARTLAB MKCKESSON [facility] Demographics Patient Name SUZAN ARECHIGA Date of Study05/28/2019 CAPRICE WHITE [id number] Visit Number [id number] Gender Female Accession Number [id number] Date of Birth1940 [facility] Number [id number] Physician SonographerSly Shelby RVTInterpreting Physician [...] DVT Study Demographics Patient Name SUZAN ARECHIGA D ate of Study 05/28/2019 ESCOBDEO A ge 78 Visit Number [id number] G tomas Female Accession Number [id number] D ate of 1940 Referring Peyton Prasadsol [place] Number [id number] Physician Computer Technician Sly Shelby T I nterpreting Suhail Stroud [...] are measured in cm Performing Organization Address City/[facility]/Zipcode Phone Number [facility] ECHO HEARTLAB MKCKESSON CPACS Sodium, random urine (05/28/2019 12:35 PM CDT)Only the most recent of3 results within the time period is included. Sodium Urine 35 meq/L [facility] Specimen Urine Narrative Performed At Reference Range: No Normals [facility] Quill Reamer ID - BS Performing Organization Address City/[facility]/Zipcode Phone Number [phone] [address] [place] [address] CENTER Protein, random urine (05/28/2019 12:35 PM CDT)Only the most recent of4 results within the time period is included. Protein, Urine 10 0 - 14 mg/dL [facility] Specimen Urine Narrative Performed At Quill Reamer ID - BS [id number]ENTER Performing Organization Address [facility] Phone Number [address] [address] CENTER Creatinine, random urine (05/28/2019 12:35 PM CDT)Only the most recent of4 resultswithin the time period is included. Creatinine, Ur 65.1 mg/dL [facility] Specimen Urine Narrative Performed At Reference Range: No Normals [facility] Quill Reamer ID - BS Performing Organization Address [facility] Phone Number [address] [address] CENTER aPTT (05/28/2019 8:11 AM CDT)Only the most recent of32 resultswithin the time period is included. PTT 67.2 (H) 22.5 - 36.0 seconds [facility] Specimen Blood Performing Organization Address [facility] Phone Number [address] [address] [place] Troponin I (05/28/2019 4:20 AM CDT)Only the most recent of16 resultswithin the time period is included. Troponin I 1.06 (HH) 0.00 - 0.03 ng/mL [facility] Specimen Blood Narrative Performed At Troponin I (TnI) levels must be interpreted [facility] in the context of the [...] acidosis, acute neurological disease, and persistent tachyarrhythmia. Quill Reamer ID - BS Performing Organization Address City/[facility]/Zipcode Phone Number [facility] [address] [place] [address] CENTER PT/aPTT (05/27/2019 11:41 PM CDT)Only the most recent of6 resultswithin the time period is included. Protime 13.3 11.9 - 14.2 seconds [facility] INR 1.0 <=5.9 [facility] PTT 25.2 22.5 - 36.0 seconds [facility] Specimen Blood Narrative Performed At Effective 07/18/2018: PT Reference Range [facility] Change New: 11.9-14.2Previous: 11.7-14.7 RECOMMENDED COUMADIN/WARFARIN INR THERAPY RANGES STANDARD DOSE: 2.0-3.0Includes: PROPHYLAXIS for venous thrombosis, systemic embolization; TREATMENT for venous thrombosis and/or pulmonary embolus. HIGH RISK: Target INR is 2.5-3.5 for patients wiht mechanical heart valves. Performing Organization Address [facility] Centercode Phone Number [address] [address] CENTER Platelet count (05/27/2019 11:22 PM CDT)Only the most recent of2 resultswithin the time period is included. Platelets 209 150 - 450 K/CU MM [facility] Specimen Blood Narrative Performed At Quill Reamer ID - [id number] Performing Organization Address [facility]/Zipcode Phone Number [place] [phone] [place] [address] CENTER ECG 12 lead (05/27/2019 11:14 PM CDT)Only the most recent of14 resultswithin the time period is included. Specimen Narrative Performed At Ventricular Rate 91 BPM GE MUSE Atrial Rate 91 BPM P-R Interval 184 ms QRS Duration 112 ms Q-T Interval 410 ms QTC Calculation(Bazett) 504 ms P Wallace 80 degrees R Wallace 53 degrees T Wallace 215 degrees Normal sinus rhythm Incomplete left bundle branch block ST depression inferior and anterolateral leads + ST el evation in aVR consider ischemia Prolonged QT Abnormal ECG When compared with ECG of22:06 ST now depressed in Lateral leads ST now elevated in aVR Confirmed by MD PATEL YOCHAI ([id number]) on 05/28/2019 6 :33:47 AM Procedure Note Interface, External Ris In - 05/28/2019 6:33 AM CDT Ventricular Rate 91 BPM Atrial Rate 91 BPM P-R Interval 184 ms QRS Duration 112 ms Q-T Interval 410 ms QTC Calculation(Bazett) 504 ms P Wallace 80 degrees R Wallace 53 degrees T Wallace 215 degrees Normal sinus rhythm Incomplete left bundle branch block ST depression inferior and anterolateral leads + ST elevation in aVR consider ischemia Prolonged QT Abnormal ECG When compared with ECG of 22:06 ST now depressed in Lateral leads ST now elevated in aVR Confirmed by MD PATEL YOCHAI ([id number]) on 05/28/2019 6:33:47 AM Performing Organization Address City/State/Zipcode Phone Number [employer]pack MUSE XR chest 1 view portable / bedside (05/27/2019 11:05 AM CDT)Only the most recent of6 resultswithin the time period is included. Specimen Narrative Performed At FINAL REPORT LMN-1 RAD, CHEST, 1 VIEW, NON DEPT INDICATION: CHEST PAIN, dyspnea COMPARISON: March 20, 2019 FINDINGS: Portable frontal view of the c hest. IMPRESSION: Support Lines: None Lungs and pleura: Left lung base linear opacities suggestive of scarring are stable. Lungs are otherwise clear. No pneumothorax. Heart and mediastinum: Stable contours. Additional findings: Bilateral humeral d eformities are stable. Costochondral calcifications present. Signed: Ochoa Wiley MD Report Verified Date/Time:05/27/2019 23:36:18 Procedure Note [...] are stable. Costochondral calcifications present. Signed: Ochoa Wiley MD Report Verified Date/Time: 05/27/2019 2 3:36:18 Performing Organization Address City/State/Zipcode Phone Number GE RIS CARDIAC CATH REPORT - SCAN (03/26/2019 8:41 AM SHIPWRIGHT SUPERVISOR) Narrative Performed At This result has an attachment that is no t available. CARDIAC CATH REPORT - SCAN (03/26/2019 8:41 AM SHIPWRIGHT SUPERVISOR) Narrative Performed At This result has an attachment that is no t available. Comprehensive metabolic panel (03/23/2019 5:27 AM SHIPWRIGHT SUPERVISOR)Only the most recent of8 resultswithin the time period is included. Protein, Total 6.3Comment: Specimen 6.0 - 8.3 gm/dL [facility] slightly hemolyzed [facility] Albumin 3.4 (L)Comment: Specimen 3.5 - 5.0 g/dL [facility] slightly hemolyzed [facility] Alkaline Phosphatase 52 40 - 150 U/L [facility] Total Bilirubin 0.4Comment: Specimen 0.2 - 1.2 mg/dL [facility] slightly hemolyzed [facility] Sodium 140 136 - 145 meq/L [facility] Potassium 4.1Comment: Specimen 3.5 - 5.1 meq/L [facility] slightly hemolyzed [facility] Chloride 102 98 - 107 meq/L [facility] CO2 25 22 - 29 meq/L [facility] BUN 49 (H) 7 - 21 mg/dL [facility] Creatinine 2.86 (H)Comment: 0.57 - 1.25 mg/dL [facility] Specimen slightly [facility] hemolyzed Glucose 164 (H) 70 - 105 mg/dL [facility] Calcium 9.0 8.4 - 10.2 mg/dL [facility] AST 27Comment: Specimen 5 - 34 U/L [facility] slightly hemolyzed [facility] ALT 14Comment: Specimen 6 - 55 U/L [facility] slightly hemolyzed [facility] MED[facility] EGFR 16Comment: ESTIMATED GFR mL/min/1.73 sq m [facility] IS NOT ACCURATE [facility] CREATININE CLEARANCE IN PREDICTING GLOMERULAR FILTRATION RATE. ESTIMATED GFR IS NOT APPLICABLE FOR DIALYSIS PATIENTS. Specimen Blood Narrative Performed At Quill Reamer ID - PIAYA L [facility] Performing Organization Address City/State/Zipcode Phone Number [facility] [address] [place] [address] CENTER ECHOCARDIOGRAM REPORT - SCAN (03/22/2019 9:20 PM SHIPWRIGHT SUPERVISOR) Narrative Performed At This result has an attachment that is no t available. Carotid doppler bilateral (03/22/2019 7:42 PM SHIPWRIGHT SUPERVISOR) [facility] ECHO HEAR TLAB MKCKESSON CPACS Specimen Impressions Performed At Right Impression [facility] ECHO HEARTLAB MKCKESSON CPACS 1. There is [...] Performed At LAB - Carotid Duplex Study [facility] ECHO HEARTLAB [facility] Demographics Patient Name SUZAN ARECHIGA Date of Study03/22/2019 CAPRICE WHITE [id number] Visit Number [id number] Gender Female Accession Number [id number] Date of Birth1940 [facility] Room Number C633 Physician SonographApolinar De RVTInterpreting Physician MaximusMD Procedure Type of Study: Cerebral: Carotid, CAROTID DOPPLER, JIN ATERAL. Indications for Study:TIA . Patient Status:Routine. Study Location:Portable. Technical Quality:Adequate visualization . Risk Factors History of Disease + + + + !Diagnosis!Date !Comments ! + + + + !History/Risk Factors:!!CKD, HLD, HTN, CAD, IABP, Morbid Obesity ! + + + + !History/Risk Factors:!03/22/2019!S/P heart cath ! + + + + Procedure Note Interface, External Ris In - 03/23/2019 9:28 AM SHIPWRIGHT SUPERVISOR PV LAB - Carotid Duplex Study Demographics Patient Name SUZAN ARECHIGA ate of Study 03/22/2019 ESCOBDEO A ge 78 Visit Number [id number] G tomas Female Accession Number [id number] D ate of 1940 Referring Sharon day Number [id number] Physician Computer Technician Isabela De T I nterpreting Suhail Stroud MD Procedure Type of Study: Cerebral: Carotid, CAROTID DOPPLER, JIN ATERAL. Indications for Study:TIA . Patient Status:Routine. [...] 1.48. Performing Organization Address City/State/Zipcode Phone Number [facility] [employer] [facility] 2D Echo W/Doppler(CW/PW/Color) (03/22/2019 2:04 PM SHIPWRIGHT SUPERVISOR) Ejection Fraction [facility] ECHO HEAR TLAB [facility] Specimen Narrative Performed At Transthoracic Echocardiography Report (T TE) [facility] [employer] [facility] Dem[facility] Patient Name SUZAN ARECHIGA Date of Study 03/22/2019 ESCOBDEO [id number] GenderFemale Visit Number [id number] [facility] [id number] Room Number C63 3 Number Date of Birth1940 Referring Physician Peyton Choe Age78 year(s) Computer Technician Daniel Acosta MD Physician Procedure Type of [...] External Ris In - 03/22/2019 5:25 PM SHIPWRIGHT SUPERVISOR Transthoracic Echocardiography Report (TTE) Demographics Patient Name SUZAN ARECHIGA ate of Study 03/22/2019 RANDEE Jeannette tomas Female Visit Number [id number] R matthias R oom Number C633 Number Date of 1940 R eferring Physician Peyton Choe Age 78 year(s) S onographer Daniel Khan I nterpreting Raul Acosta MD P hysicimark Procedure Type of Study TTE procedure:2DECHO W [...] T CI: 4.1 l/min/m^2 Performing Organization Address [facility] Centercoks Phone Number [facility] ECHO HEARTLAB MKCKESSON CPACS Lipid panel (03/22/2019 2:06 AM SHIPWRIGHT SUPERVISOR)Only the most recent of2 resultswithin the time period is included. Triglycerides 102 mg/dL [facility] Cholesterol 161 mg/dL [facility] HDL 40 mg/dL [facility] LDL Calculated 101 mg/dL [facility] Specimen Blood Narrative Performed At Triglyceride Reference Range: [facility] Low Risk <150 [id number] High Risk 200-499 Very High Risk>=500 Cholesterol Reference Range: Low Risk <200 [id number] High Risk>240 HDL Cholesterol Reference Range: Low Risk >=60 High Risk <40 LDL Cholesterol Reference Range: Optimal<100 Near [id number] Kaqsvziehp968-941 [id number] Very High >=190 Quill Reamer ID - PIAYA L Performing Organization Address City/[facility]/Zipcode Phone Number [place] [phone] [place] [address] CENTER US abdomen complete (03/22/2019 12:10 AM SHIPWRIGHT SUPERVISOR) Specimen Narrative Performed At FINAL REPORT LMN-1 INDICATION: abd pain COMPARISON: Renal ultrasound dated [...] External Ris In - 03/22/2019 1:53 AM SHIPWRIGHT SUPERVISOR FINAL REPORT INDICATION: abd pain COMPARISON: Renal [...] 1:50:03 Performing Organization Address City/State/Zipcode Phone Number LMN-1 CT brain without IV contrast (03/21/2019 4:58 PM SHIPWRIGHT SUPERVISOR) Specimen Narrative Performed At FINAL REPORT LMN-1 CT, BRAIN, WITHOUT CONTRAST INDICATION: Left sided [...] cranial-cervical fusion hardware limits evaluation of the shaft mechanic ior fossa. No intracranial hemorrhage or abnormal [...] External Ris In - 03/21/2019 5:38 PM SHIPWRIGHT SUPERVISOR FINAL REPORT CT, BRAIN, WITHOUT CONTRAST INDICATION: [...] cranial-cervical fusion hardware limits evaluation of the shaft mechanic ior fossa. No intracranial hemorrhage or abnormal [...] Date/Time: 03/21/2019 1 7:36:00 Performing Organization Address City/[facility] Phone Number GE RIS XR shoulder complete 2 views min left (03/21/2019 2:25 PM SHIPWRIGHT SUPERVISOR) Specimen Narrative Performed At FINAL REPORT GE [...] MD Report Verified Date/Time:03/21/2019 14:38:21 Reading Location: [employer] y Reading Room Procedure Note Interface, External Ris In - 03/21/2019 2:40 PM SHIPWRIGHT SUPERVISOR FINAL REPORT RAD, SHOULDER, COMPLETE (MIN 2 [...] Verified Date/Time: 03/21/2019 1 4:38:21 Reading Location: [facility] y Reading Room Performing Organization Address City/[facility] Centercode Phone Number GE RIS REPORT OF PROCEDURE - ENDOSCOPY URL (03/21/2019 12:27 PM SHIPWRIGHT SUPERVISOR) Narrative Performed At This result has an attachment that is no t available. Hemoglobin A1c (03/20/2019 12:43 AM SHIPWRIGHT SUPERVISOR)Only the most recent of3 resultswithin the time period is included. Hemoglobin A1C 8.5 (H) 4.3 - 6.1 % [facility] Specimen Blood Performing Organization Address [facility] Centercoks Phone Number [address] [address] [place] ECHOCARDIOGRAM REPORT - SCAN (01/28/2019 9:21 PM SHIPWRIGHT SUPERVISOR) Narrative Performed At This result has an attachment that is no t available. Clostridium difficile GDH Toxin (01/28/2019 6:41 PM SHIPWRIGHT SUPERVISOR)Only the most recent of 2 resultswithin the time period is included. C. Difficle Toxin Negative Negative [facility] C. Difficile [facility] Antigen Positive (A)Comment: C. Negative [facility] difficile present but toxin [facility]I [facility] not detected. Indicates colonization with non-toxigenic strain or level of toxin below detectable levels. No need for enteric isolation. Treatment is rarely needed (only when strong clinical suspicion for Clostridium difficile infection) Specimen Stool Narrative Performed At Testing performed by [employer] [facility] Assay.For GDH, published sensitivity of the assay is 98.7% compared to cytotoxicity testing.For Toxin AB, published sensitivity is 87.8% and specificity 99.4% compared to cytotoxicity testing. Verification of kit performance was done by the [facility] Microbiology Lab prior to clinical use. Performing Organization Address [facility] Centercode Phone Number [address] [address] [place] Occult blood, stool (01/28/2019 6:40 PM SHIPWRIGHT SUPERVISOR) Occult blood Negative Negative [facility] Specimen Stool Performing Organization Address [facility]/Zipcode Phone Number [address] [address] [place] Transthoracic 2D echo w/ doppler (cw/pw/color) (01/28/2019 11:25 AM SHIPWRIGHT SUPERVISOR) Ejection Fraction [facility] ECHO HEAR TLAB [facility] Specimen Narrative Performed At Transthoracic Echocardiography Report (T TE) [facility] ECHO HEARTLAB MKCKESSON [facility] Demographics Patient NameCARRILLSUZAN Day Date of Study01/28/2019 RANDEE Gender Female Visit [id number] Race Merced lundberg [id number] Number Date of 1940 Referring Physician Age 78 year(s) Hany Dozier [facility] Interpreting Physician XIMENA Cormier Procedure Type [...] External Ris In - 01/28/2019 3:33 PM SHIPWRIGHT SUPERVISOR Transthoracic Echocardiography Report (TTE) Demographics Patient Name SUZAN ARECHIGA Date of Study 01/28/2019 RANDEE Gend er Female Visit Number [id number] Race Room Number 8A11 Number Date of 1940 Refe dali bradley Age 78 year(s) Sono roxann Dozier RDCS Inte rpreting Tramaine Cormier MD [...] T CI: 2.52 l/min/m^2 Performing Organization Address [facility] Phone Number [facility] ECHO HEARTLAB MKCKESSON CPACS Lipoprotein (a) (01/26/2019 5:34 AM SHIPWRIGHT SUPERVISOR) Lipoprotein (a) 57 <75 nmol/L [facility] Specimen Blood Narrative Performed At Performing Lab [facility] [employer] [facility] [address] [address] [place] [address] I Bright BUENO, PhD, ROBY Performing Organization Address [facility] Phone Number [employer] [place] [address] [address] [address] [facility] Prothrombin time/INR (01/25/2019 11:19 PM SHIPWRIGHT SUPERVISOR) Protime 13.2 11.9 - 14.2 seconds [facility] INR 1.1 <=5.9 [facility] Specimen Blood Narrative Performed At Effective 07/18/2018: PT Reference Range [facility] Change New: 11.9-14.2Previous: 11.7-14.7 RECOMMENDED COUMADIN/WARFARIN INR THERAPY RANGES STANDARD DOSE: 2.0-3.0Includes: PROPHYLAXIS for venous thrombosis, systemic embolization; TREATMENT for venous thrombosis and/or pulmonary embolus. HIGH RISK: Target INR is 2.5-3.5 for patients wiht mechanical heart valves. Prior to initiating heparin Performing Organization Address [facility] Centercode Phone Number [address] [address] [place] CARDIAC CATH REPORT - SCAN (12/27/2018 7:06 AM SHIPWRIGHT SUPERVISOR) Narrative Performed At This result has an attachment that is no t available. Iron, TIBC, % sat. (without ferritin) (12/22/2018 4:53 AM CDT) Iron 85.0 40.0 - 160.0 ug/dL [facility] TIBC 226 (L) 250 - 450 ug/dL [facility] Iron % Saturation 38 20 - 55 % [facility] Specimen Blood Performing Organization Address [facility] Phone Number [address] [address] [place] Ferritin (12/22/2018 4:53 AM CDT) Ferritin 195 5 - 275 ng/mL [facility] Specimen Blood Performing Organization Address [facility] Centercoks Phone Number [address] [address] [place] Reticulocyte count (12/22/2018 4:52 AM CDT) % Retic 2.0 (H) 0.5 - 1.7 % [facility] Specimen Blood Performing Organization Address [facility] Centercoks Phone Number [address] [address] [place] ECHOCARDIOGRAM REPORT - SCAN (12/21/2018 9:21 PM CDT) Narrative Performed At This result has an attachment that is no t available. 2D Echo W/Doppler(CW/PW/Color) (12/21/2018 10:22 AM CDT) Ejection Fraction [facility] ECHO HEAR TLAB CKESSON [facility] Specimen Narrative Performed At Transthoracic Echocardiography Report (T TE) [facility] ECHO HEARTLAB MKCKESSON [facility] Demographics Patient Name SUZAN ARECHIGA Date of Study12/21/2018 ESCOBDEO [id number] Gender Female Visit Number [id number] Race [id number] [id number] Number Date 1940 [place] [facility] Age78 year(s) SonographColin Snider, RDCS,RVT,RDMS AnalystAlex [...] Name SUZAN ARECHIGA Date of Study 12/21/2018 RANDEE Gender Female Visit Number [id number] Race Room [facility] 6105 Number Date of 1940 Referri ivette Choe Physici an Age 78 year(s) Sonogra pher Destini Silva, NB, RDCS,RVT,RDMS Nutrition Consultant Nader Finley Interpr eting Kash Carr MD [...] Organization Address City/State/Zipcode Phone Number [facility] LIZETTE HEARTLAB MKCKESSON [facility] CRITICAL CARE (12/20/2018 8:19 PM CDT) Narrative Performed At Papito Peters MD 0193:29 PM Critical Care Performed by: Papito Peters MD Authorized by: Puneet Snider MD Total critical care time: 45 minutes Critical care time was exclusive of sepa rately billable procedures and treating other patients and teaching hao e. Critical care was necessary to treat or [...] CDT) Specimen Narrative Performed At FINAL REPORT LMN-1 PROCEDURE: MYOCARDIAL PERFUSION PET IMAG ING (Rest/Stress) CPT CODE: 87446 INDICATION: Evaluate extent of known CAD , [...] Chest discomfort, nausea, fati crystal (Treatment was [id number] IV). Perfusion: There is an absence of [...] prior study for compariso n. Signed: Marcus Joseph MD Report Verified Date/Time:11/12/2018 15:26:40 Reading Location: [address] Reading Room Procedure Note Interface, External Ris In - 11/12/2018 3:28 PM CDT FINAL REPORT PROCEDURE: MYOCARDIAL PERFUSION PET IMAG ING (Rest/Stress) CPT CODE: 00946 INDICATION: Evaluate extent of known CAD , [...] Chest discomfort, nausea, fati crystal (Treatment was qwajdptiuowok018in IV). Perfusion: There is an absence of [...] prior study for compariso n. Signed: Marcus Joseph MD Report Verified Date/Time: 11/12/2018 1 5:26:40 Reading Location: [place] [id number] Reading Room Performing Organization Address City/State/Zipcode Phone [...] by MD LOZANO JORGE ([id number]) on 11/23/2018 3:0 5:01 PM Procedure Note [...] PM Performing Organization Address City/State/Zipcode Phone Number [facility] ECHOCARDIOGRAM REPORT - SCAN (11/11/2018 9:20 PM CDT) Narrative Performed At This result has an attachment that is no t available. Transthoracic 2D echo w/ doppler (cw/pw/color) (11/11/2018 1:14 PM CDT) Ejection Fraction [facility] ECHO HEAR TLAB MKCKESSON CPACS Specimen Narrative Performed At Transthoracic Echocardiography Report (T TE) [facility] ECHO HEARTLAB [facility] Demographics Patient NameCARRILLO, SUZAN Date of Study11/11/2018 ESCOBDEO Gender Female Visit [id number] Race [place] [id number] Number Date of 1940 [facility] Choe Physician Age 78 year(s) SonographerSly Sims RDCS Nutrition Consultant Amber Kaplan RDCS Interpreting Garry davis Physician Procedure Type of Study TTE procedure:2DECHO [...] 11/11/2018 ESCOBDEO Gend er Female Visit Number [id number] Race Room Number 6102 Number Date of 1940 Refe dali bradley Age 78 year(s) Johnieo roxann Sims RDCS Nutrition Consultant Amber Kaplan RDCS Inte rpreting Tramaine Cormier [...] T CI: 2.37 l/min/m^2 Performing Organization Address [facility] Centercode Phone Number [facility] ECHO HEARTLAB MKCKESSON CPACS TSH/T4 if indicated (11/11/2018 12:39 AM CDT) TSH 1.17 0.35 - 4.94 uIU/mL [facility] Specimen Blood Performing Organization Address [facility] Phone Number [address] [address] CENTER Hepatic function panel (11/11/2018 12:39 AM CDT) Protein, Total 7.3Comment: Specimen 6.0 - 8.3 gm/dL [facility] slightly hemolyzed [facility] Albumin 3.9Comment: Specimen 3.5 - 5.0 g/dL [facility] slightly hemolyzed [facility] Total Bilirubin 0.5Comment: Specimen 0.2 - 1.2 mg/dL [facility] slightly hemolyzed [facility] Bilirubin, Direct 0.2Comment: Specimen 0.1 - 0.5 mg/dL [facility] slightly hemolyzed [facility] Alkaline Phosphatase 129 40 - 150 U/L [facility] AST 18Comment: Specimen 5 - 34 U/L [facility] slightly hemolyzed [facility]ENT[facility] R ALT 11Comment: Specimen 6 - 55 U/L [facility] slightly hemolyzed [facility]ICAL [facility]ENT[facility] R Specimen Blood Performing Organization Address [facility]ercoks Phone Number [address] [address] CENTER after 08/31/2018 Insurance Payer Benefit Plan / Group Subscriber ID Type Phone A ddress naaptol [employer] xxxxxxxx Maps Contracted MEDICAID [place] xxxxxxxxx Medicaid Advance Directives Patient has advance care planning documents, and code status on file. For more information, please contact:[address] [phone] Code Status Date Activated Date Inactivated Comments [...]
--- OUTSIDE RECORDS SUMMARY | 2019-09-01 14:59 | XMS REPORT | Continuity of Care Document ---
:1940 Author Organization [facility] t Address [address] [place] [address] Care Team Providers Name Role Phone Marcos Perry Primary Care Physician Unavailable Ky JEREZ, Carli Attending Clinician Unavailable EVELIN MAHMOOD Attending Clinician Unavailable Evelin Mahmood MD Attending Clinician Дмитрий Cortes MD Attending Clinician Manjula BUENO, Tiffanie Attending Clinician Latrell Gamez MD Attending Clinician Jamaica Bojorquez MD Attending Clinician [...] Attending Clinician Unavailable Lauren Attending Clinician Unavailable Olman STUART Attending Clinician Unavailable Дмитрий CORTES Admitting Clinician Unavailable JAMAICA BOJORQUEZ Admitting Clinician Unavailable ALEKSANDER BELCHER Admitting Clinician Unavailable PAUL Admitting Clinician Unavailable Olman STUART Admitting Clinician Unavailable Payers Payer Name Policy Policy Number Effective Expiration Source Type Date Date CIGNA HEALTHSPRINGCIGNA xxxxxxxx [facility] MEDICAIDMEDICAID OF xxxxxxxxx [facility] [place] [facility] Problems Condition Condition Condition Status Onset Resolution [...] 00:00: Medical involving involving 00 Cent er [place] coronary coronary artery of artery of [place] heart heart H/O stroke H/O stroke Disease [...] 00 Center with with hyperglyce hyperglyce shital shital Peripheral Peripheral Disease Active [facility] arterial arterial 8-15 [facility] - occlusive occlusive 00:00: Medi krystina disease disease 00 Center Hypertensi Hypertensi Disease Active [facility] ve heart ve heart 8-15 [facility] - and renal and renal 00:00: Medi krystina disease disease 00 Center with with (congestiv (congestiv e) heart e) heart failure failure Generalize Generalize Disease Active [facility] d anxiety d anxiety 8-15 [facility] - disorder disorder 00:00: Medica l 00 Center Hardening Hardening Disease Active [facility] of the of the 10-04 [facility] - aorta aorta 00:00: Medical (main (main 00 Center artery of artery of the heart) the heart) Obstructiv Obstructiv Disease Active [facility] e sleep e sleep 15 [facility] - apnea apnea 00:00: Medical syndrome syndrome 00 Center Osteoporos Osteoporos Disease Active [facility] is is 10-04 [facility] - 00:00: Medical 00 Center 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 10-04 [facility] - to type 2 to type 2 00:00: [facility] diabetes diabetes 00 [place] mellitus mellitus Chronic Chronic Disease Active [facility] systolic systolic 7 [facility] - CHF CHF 00:00: Medical (congestiv (congestiv 00 Ce nter e heart e heart failure) failure) CKD CKD Disease Active [facility] (chronic (chronic 08-01 [facility] - kidney kidney 00:00: Medical disease) disease) 00 Center stage 4, stage 4, GFR 15-29 GFR 15-29 ml/min ml/min IDDM IDDM Disease Active [facility] (insulin (insulin 612 [facility] - dependent dependent 00:00: [facility] diabetes diabetes 00 Center mellitus) mellitus) NSTEMI s/p NSTEMI s/p Disease Active [facility] Impella Impella 6- [facility] - PCI by PCI by 00:00: Me dical Peyton Peyton 00 Center 08/01/18 08/01/18 Unstable Unstable Disease Active [facility] angina angina 6- [facility] - 00:00: Medical 00 Center Mixed Mixed Disease Active 2016-[address] [facility] hyperlipid hyperlipid Amalia kes - emia emia 00:00: Medical 00 [place] Poorly-con Poorly-con Disease Active [facility] trolled trolled 5- [facility] - hypertensi hypertensi 00:00: Me dical on on Center Cervical Cervical Problem Active [facility] [...] unspecifie unspecifie Me moria d d l Outpati ent Clinics 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 [facility] - [place] Memoria coronary coronary l artery artery Outpati [...] l (severe) (severe) Outpat i ent Clinics terminal gauger assisted Problem Active [facility] current current [facility]ukes [...] of Memoria left knee left knee l Outpati ent Clinics Primary Primary Problem Active [facility] osteoarthr osteoarthr Amalia kes - itis of itis of Memoria right knee right knee l Outpati ent Clinics Pain, Pain, Problem Active [facility] joint, joint, [facility] - knee, knee, Memoria right right l Outpati ent Clinics Acute pain Acute pain Problem Active [facility] of left of left [facility] - knee knee [facility] l [facility] Adult BMI Adult BMI Problem Active [facility] 36.0-36.9 36.0-36.9 Luke s - kg/sq m kg/sq m Mem[facility] Coronary Coronary Problem Active [facility] artery artery [facility] - disease disease Memoria involving involving l [place] [facility] coronary coronary ent artery of artery of Clin ics [place] heart with heart with unstable unstable angina angina pectoris pectoris History of History of Problem Active [facility] cholecyste cholecyste Amalia kes - ctomy ctomy Memoria l [facility] Atrial Atrial Problem Active [facility] flutter, flutter, Lukes - unspecifie unspecifie Me moria d type d type l [facility] NSTEMI NSTEMI Problem Active [facility] (non-ST (non-ST [facility] - elevated elevated Memori a myocardial myocardial l infarction infarction Ou tpati ) ) ent Clinics Gastroesop Gastroesop Problem Active [facility] hageal hageal [facility]ukes - reflux reflux Memoria disease disease l without without Outpati esophagiti esophagiti en t s s Clinics Non-healin Non-healin Diagnosis Active [facility] g wound of g wound of Amalia kes - left lower left lower Me moria extremity extremity l [facility] History of Past Illness Condition Condition Condition Status Onset Resolution Last Treating Co mments Source Name Details Category Date Date Treatment Clinician Date Acute Acute Disease Resolve 2019-01-30 2019-01-[address] kidney kidney d 08-20 00:00:00 08:12:52 [facility] - injury injury 00:00: Medical superimpos superimpos 00 Ce nter ed on CKD ed on CKD Allergies, Adverse Reactions, Alerts Allergy Allergy Status Severity Reaction(s) Onset Inactive Treating Comm ents Source Name Type Date Date Clinician Diphenhy Propensi Active Palpitations [facility] dramine ty to 6 [facility] - Hcl adverse 00:00: Medical reaction 00 [place] s Codeine Propensi Active Hives [facility] ty to 6-11 [facility] - adverse 00:00: Medical reaction 00 [place] s Iodine Propensi Active Anaphylaxis [facility] And ty to 07-31 [facility] - Iodide adverse 00:00: Medical Containi reaction 00 Center ng s Products Levoflox Propensi Active Tinitus [facility] acin ty to 07-31 [facility] - adverse 00:00: Medical reaction 00 Center s Morphine Propensi Active Anaphylaxis [facility] ty to 07-31 [facility] - adverse 00:00: Medical reaction 00 Center s Prometha Propensi Active Nausea Only [facility] zine ty to 07-31 [facility] - adverse 00:00: Medical reaction 00 Center s Metoclop Drug Active Nausea Only [facility] ramide Intolera 07-31 [facility] - Hcl nce 00:00: Medical 00 Center Hydrocod Propensi Active Anaphylaxis [facility] one-Acet ty to 07-31 [facility] - aminophe adverse 00:00: Medical n reaction 00 Center s iodine DA Active [facility] 00:[facility]: [facility] 00 [facility] morphine DA Active [facility] 07-28 [place] 00:00: Regiona 00 [facility] Benadryl Adverse Active Info Not [facility] Reaction Available [facility] - Memoria l [facility] ALL PAIN Adverse Active Swelling of [facility] NARCOTIC Reaction throat, [facility] - S hands Memoria [facility] CONTRAST Adverse Active Info Not [facility] DYE Reaction Available [facility] - Memoria [facility] Amiodaro Adverse Active Info Not [facility] ne HCl Reaction Available [facility] - [facility] Levaquin Adverse Active Info Not [facility] Reaction Available [facility] - [facility] Social History Social Habit Start Date Stop Date Quantity Comments Source History SDOH Alcohol [facility] Std Drinks [facility] History SDOH Alcohol [facility] Binge [facility] Sex Assigned At [facility] History SDOH Alcohol 2018-11-10 2018-11-[address] [facility] [address] [facility] - Frequency 00:00:00 00:00:00 [facility] Smoking Status Start Date Stop Date Source Never smoker [facility]ations Ordered Filled Start Stop Current Ordering Indication Dosage Frequency Signature Comments Components Source Medication Medication Date Date Medication? Clinician (SIG) Name Name Ranolazine Ranolazine Yes John 1 tablet [facility] ER ER 4-15 Perry [facility] - 00:00: Memoria 00 Outpati ent Clinics Brilinta Brilinta 2019-0 Yes John [address] [address] 4-15 Perry [facility] - 00:00: Memoria 00 l Outpati ent Clinics clopidogrel 2019- 2020- No 1{tbl} QD Take [address] (PLAVIX) 75 4-08 04-08 tablet by Amalia kes - mg tablet 14:11: 00:00 mouth Medica l 09 :00 daily. [place] insulin 2019-0 Yes 10U QD Inject 10 [facility] degludec 4-08 Units [facility]ukes - (TRESIBA 13:59: subcutaneo Med ical FLEXTOUCH 31 usly every Cent er U-100 SUBQ) morning. ticagrelor 2019- Yes 90mg Q.5D Take 1 [facility] (BRILINTA) 4-08 tablet (90 Penny es - 90 mg Tab 00:00: mg total) Med ical tablet 00 by mouth 2 Center (two) times daily. pantoprazol Yes 40mg Take [address] [facility] e 2-02 tablet (40 [facility]ukes - (PROTONIX) 00:00: mg total) Me dical 40 MG 00 by mouth Center tablet every morning before breakfast. aspirin 81 2019-0 Yes 81mg Take [address] MG chewable 2-01 by mouth Luke s - tablet 12:20: every Medical 17 other day. [place] cholecalcif 2019- Yes 4000U QD Take 4,[address] [facility] shun, 1-28 Units by Lukes - vitamin D3, 23:31: mouth Medic al 4,000 unit 01 daily. [place] Tab calcitriol 2018-02 Yes .5ug QD Take 0.[address] (ROCALTROL) 2-06 mcg by Lukes - 0.5 MCG 22:10: mouth Medical capsule 23 daily. [place] metoprolol 2018-02 2020- No 50mg Q.5D Take [address] (LOPRESSOR) 1-05 11-04 tablet (50 L ukes - 50 MG 00:00: 23:59 mg total) Medica l tablet 00 :00 by mouth 2 Center (two) times daily. insulin 2018-02- No To use via [facility] lispro -05 02-01 sliding [facility]ukes - (HUMALOG 00:00: 00:00 scale from Ut dicbola FORDEPEN 00 :00 4 to 14 Center INSULIN) units 100 unit/mL three InPn times A day.. isosorbide 2018-02 2019- No 30mg QD Take [address] mononitrate 1-05 12-06 tablet (30 L ukes - (IMDUR) 30 00:00: 00:00 mg total) M edical MG 24 hr 00 :00 by mouth Center tablet daily. isosorbide 2019- No 60mg QD Take [address] mononitrate 11-14 11-05 tablet (60 L ukes - (IMDUR) [...] 00 times Center daily . TRADJENTA 5 2018- Yes 5mg QD Take [address] mg Tab 8-14 by mouth Lukes - 00:00: daily. Medical 00 Center epoetin 2019- No 15107C Inject [address] rubina-epbx 7 02- mL (10,000 Penny es - (RETACRIT) 00:00: [...] 00 :00 total) by Center mouth daily. LORazepam Yes .5mg Take [address] [facility] [...] dical 500 MG 00 :00 total) by [place] tablet mouth every 6 (six) hours as needed. glucagon, 2019- No 1mg Inject [address] [facility] human 08-20 mL (1 mg Lukes - recombinant 00:00: 00:00 total) Med ical , 1 mg/mL 00 :00 intramuscu Cent er SolR larly as injection needed (Hypoglyce shital and patient unable to take PO and has no IV access ). ipratropium 2019- No .5mg Take 2.[address] (ATROVENT) 08-20 mLs (0.5 Luke s - 0.02 % 00:00: 00:00 mg total) Medic al nebulizer 00 :00 by [place] solution nebulizati on every 6 (six) hours. senna-docus 2020- No 2{tbl} Q.5D Take [address] ate 08-20 tablets by [facility]ukes - (SENOKOT S) 00:00: 00:00 mouth 2 Me dical 8.6-50 mg 00 :00 (two) Center per tablet times daily. mINOCYCLine 2020- No 100mg Take [address] (MINOCIN,DY 08-20 capsule Luke s - NACIN) 100 00:00: 00:00 (100 mg Med ical MG capsule 00 :00 total) by Cent er mouth every 12 (twelve) hours Continue as long as patient has open, draining wound. insulin 2019- No 0U Inject [facility] lispro 08-20 11-05 0-12 Units [facility]ukes - (HUMALOG) 00:00: 00:00 subcutaneo M edical 100 unit/mL 00 :00 usly as Cente r injection needed (High blood sugar). bumetanide 2019- No .5mg Take [address] [facility] (BUMEX) 0.5 08-20 09-24 tablet Lukes - MG tablet 00:00: 00:00 (0.5 mg Medi krystina 00 :00 total) by Center mouth 2 (two) times daily with breakfast and dinner. heparin 2018- No 5000U Inject [address] [facility] injection 08-20 mL (5,000 Luke s - 5,000 00:00: 00:00 Units Medical units/mL 00 :00 total) Center for DVT subcutaneo prophylaxis usly every /dialysis 12 lock/IV (twelve) bolus hours. metoprolol 2018- No 25mg Q.5D Take [address] (LOPRESSOR) 08-20 tablet (25 L ukes - 25 MG 00:00: 00:00 mg total) Medica l tablet 00 :00 by mouth 2 Center (two) times daily. RESTASIS 2019- No 1[drp] Q.5D Place [address] 0.05 % -03-23 drop into Lukes - ophthalmic 00:00: 00:00 both eyes M edical emulsion 00 :00 2 (two) Center times daily. Tradjenta Tradjenta Yes John [address] 5-14 Perry [facility] - 00:00: Memoria 00 l Outpati ent Clinics Clopidogrel Clopidogrel Yes John 1 tablet CHI [...] us Perry defined [facility] - Memoria l Outpati ent Clinics Nitrostat Nitrostat Yes John as [facility] directed [facility] - Memoria l Outpati ent Clinics Senna S Senna S Yes John [address] [facility] [facility] [place] in the Lukes - evening as Memoria needed l Outpati ent Clinics Cyanocobala Cyanocobala Yes John [address] min min Perry [facility] - Memoria l Outpati ent Clinics Thiamine Thiamine Yes John [address] HCl HCl Perry [facility] - Memoria [facility] ent Clinics Lipitor Lipitor Yes John [address] [facility] Clinics Aspir-Low Aspir-Low Yes John [address] [facility] Vitamin D-3 Vitamin D-3 Yes John as [facility] directed [facility] BD Pen BD Pen Yes John USE [facility] Needle Mini Needle Mini Perry DIRECTED [facility] - U/F U/F [facility] ent [facility] Ferrous Ferrous Yes Jhon TAKE 1 [facility] Sulfate Sulfate Perry TABLET BY Penny es - MOUTH Memoria TWICE A l DAY [facility] Bumetanide Bumetanide Yes John TAKE [address] [facility] [place] TABLET BY Lukes - MOUTH Memoria TWICE A l DAY [facility] ent [facility] Metoprolol Metoprolol Yes John [address] Tartrate Tartrate Perry with food [facility] Protonix Protonix Yes John [address] [place] mixed with Lukes - apple Memoria juice or l applesauce [facility] ent [facility] Atorvastati Atorvastati Yes John TAKE [address] [facility] n Calcium n Calcium Perry TABLET BY Lukes - MOUTH Memoria EVERY DAY [facility] ent [facility] Folic Acid Folic Acid Yes John TAKE [address] [facility] [place] TABLET BY [facility]ukes - MOUTH Memoria EVERY DAY l [facility] Calcitriol Calcitriol Yes John TAKE [address] [facility] [place] CAPSULE BY Lukes - MOUTH Memoria EVERY DAY l [facility] Brilinta Brilinta Yes John TAKE [address] [facility] [place] TABLET BY Lukes - MOUTH Memoria TWICE A l DAY [facility] Calcitriol Calcitriol 2019- No John [address] -14 Perry [facility] - 00:00 Memoria :00 [facility] Immunizations Ordered Filled Immunization Date Status Comments [facility] Immunization Name Name FluAD FluAD 2018-12-[address] [facility] [facility] - 00:00:00 [facility] Vital Signs Vital Name Observation Time Observation Value Comments Source Systolic blood 2019-05-29 14:00:00 101 mm[Hg] [facility] Diastolic blood 2019-05-29 14:00:00 47 mm[Hg] [facility] Heart rate 2019-05-29 14:00:00 75 /min [facility] Respiratory rate 2019-05-29 14:00:00 15 /min [facility] Oxygen saturation in 2019-05-29 14:00:00 95 /min [facility] - Arterial blood by Medical Ce nter Pulse oximetry Body temperature 2019-05-29 10:00:00 36.67 Sirisha [facility] Body weight Measured 2019-05-29 04:00:00 84.8 kg [facility] BMI 2019-05-29 04:00:00 35.32 kg/m2 [facility] Body height 2019-05-27 23:00:00 154.9 cm [facility] Procedures Procedure Date / Time Performing Clinician Source Performed VASCULAR DIAGRAM -SCAN 2019-05-31 12:41:14 Provider, Default [facility] CARDIAC CATH REPORT - SCAN 2019-05-31 10:31:07 Provider, Default [facility] RHYTHM STRIP - SCAN 2019-05-31 10:31:06 Provider, Default [facility] PERIPHERAL VASCULAR REPORT 2019-05-29 21:10:12 Provider, Default [facility] - - SCAN [facility] POCT-GLUCOSE METER 2019-05-29 13:24:00 Daya Fair [facility] REPORT OF PROCEDURE - 2019-05-29 12:10:57 Provider, Default [facility] ENDOSCOPY SCAN [facility] REPORT OF PROCEDURE - 2019-05-29 12:10:55 Provider, Default [facility] ENDOSCOPY SCAN [facility] PLATELET AGGREGATION: DRUG 2019-05-29 09:27:00 Christian Ríos [facility] POCT-GLUCOSE METER 2019-05-29 07:41:00 Daya Fair kit [facility] S [facility] B-TYPE NATRIURETIC FACTOR 2019-05-29 04:41:00 Nas Minor [facility] (BNP) [facility] CALCIUM, IONIZED 2019-05-29 04:41:00 Nas Minor [facility] MAGNESIUM 2019-05-29 04:41:00 Nas Minor [facility] PHOSPHORUS 2019-05-29 04:41:00 Nas Minor [facility] CREATINE KINASE (CK) 2019-05-29 04:41:00 Nas Minor [facility] URIC ACID 2019-05-29 04:41:00 Nas Minor [facility] CBC (HEMOGRAM ONLY) 2019-05-29 04:41:00 Radha Mamhood [facility] BASIC METABOLIC PANEL (7) 2019-05-29 04:41:00 Delbert Morales [facility] CBC W/PLT COUNT & AUTO 2019-05-29 04:41:00 Delbert Morales [facility] US RENAL COMPLETE 2019-05-29 01:30:00 Nas Minor [facility] POCT-GLUCOSE METER 2019-05-28 21:32:[address] [facility] POCT-ACT 2019-05-28 20:28:00 ManjulaDaya [facility] URINALYSIS W/ MICROSCOPIC 2019-05-28 18:20:00 Nas Minor [facility] POCT-ACT 2019-05-28 18:08:00 [facility] VEN[facility] DOPPLER LEGS 2019-05-28 17:05:00 Delbert Bentley [facility] BASIC METABOLIC PANEL (7) 2019-05-28 16:19:00 Christian Ríos [facility] CBC (HEMOGRAM ONLY) 2019-05-28 16:19:00 Christian Ríos [facility] POCT-ACT 2019-05-28 16:17:00 Peyton [place] Choe [facility] POCT-ACT 2019-05-28 14:32:00 Peyton [facility] POCT-ACT 2019-05-28 13:45:00 Peyton [facility] POCT-ACT 2019-05-28 13:34:00 Peyton [facility] L CATH & PCI 2019-05-28 13:10:00 Peyton Spencer Choe [facility] CREATININE, RANDOM URINE 2019-05-28 12:35:00 Iván Varghese [facility] SODIUM, RANDOM URINE 2019-05-28 12:35:00 Iván Varghese [facility] PROTEIN, RANDOM URINE 2019-05-28 12:35:00 Nas Minor A [facility] POCT-GLUCOSE METER 2019-05-28 12:02:00 PeytonSpencer [facility] POCT-GLUCOSE METER 2019-05-28 09:31:00 [facility] APTT 2019-05-28 08:11:00 [facility] ONLY[facility] 2019-05-28 06:37[facility]OL[facility] PANEL (7) 2019-05-28 06:37:00 Delbert Morales [facility] CBC W/PLT COUNT & AUTO 2019-05-28 06:37:00 Delbert Morales [facility] APTT 2019-05-28 06:02:00 Delbert Morales [facility] TROPONIN I 2019-05-28 04:20:00 Jennifer [facility] APTT 2019-05-27 23:42:00 Jennifer [facility] PT/APTT 2019-05-27 23:41:00 [facility] CBC W/PLT COUNT & AUTO 2019-05-27 23:41:00 [facility]OLIC PANEL (7) 2019-05-27 23:25:00 [facility] TROPONIN I 2019-05-27 23:25:00 [facility] B-TYPE NATRIURETIC FACTOR 2019-05-27 23:24:00 Jennifer [facility] PLATELET COUNT 2019-05-27 23:22:00 Radha Mahmood [facility] ECG 12-LEAD 2019-05-27 23:14:56 Jennifer [facility] ECG 12-LEAD 2019-05-27 22:06:53 Unknown, Hl7 Doctor [facility] XR CHEST 1 VIEW 2019-05-27 11:05:00 Radha Mahmood [facility] PORTABLE/BEDSIDE [facility] VASCULAR DIAGRAM -SCAN 2019-03-27 14:02:13 Provider, [facility] RHYTHM STRIP - SCAN 2019-03-26 14:31:23 Provider, [facility] VASCULAR DIAGRAM -SCAN 2019-03-26 08:41:44 Provider, [facility] REPORT OF PROCEDURE - 2019-03-26 08:41:40 Provider, [facility] ENDOSCOPY [facility] CARDIAC CATH REPORT - SCAN 2019-03-26 08:41:36 Provider, [facility] CARDIAC CATH REPORT - SCAN 2019-03-26 08:41:35 Provider, [facility] RHYTHM STRIP - SCAN 2019-03-26 08:41:22 Provider, [facility] PERIPHERAL VASCULAR REPORT 2019-03-23 21:20:50 Provider, [facility] POCT-GLUCOSE METER 2019-03-23 11:39:00 Berlin Bojorquez [facility] POCT-GLUCOSE METER 2019-03-23 08:22:00 [place] Bojorquez [facility] COMPREHENSIVE METABOLIC 2019-03-23 05:27:00 Abel Wilburn [facility] CBC W/PLT COUNT & AUTO 2019-03-23 03:36:00 Cosmo [facility] POCT-GLUCOSE METER 2019-03-22 21:57:00 [place] Bojorquez [facility] ECHOCARDIOGRAM REPORT - 2019-03-22 21:20:52 Provider, [facility] CAROTID DOPPLER BILATERAL 2019-03-22 19:42:00 Roongta, Devaughn [facility] POCT-GLUCOSE METER 2019-03-22 17:18:00 [place] Bojorquez [facility] BASIC METABOLIC PANEL (7) 2019-03-22 15:55:00 Cecilio [facility] CBC (HEMOGRAM ONLY) 2019-03-22 15:55:00 Cecilio Dominic [facility] POCT-GLUCOSE METER 2019-03-22 15:00:00 [place] Bojorquez [facility] 2D ECHO W/ DOPPLER 2019-03-22 14:04:35 Peyton [facility] (CW/PW/COLOR) [facility] POCT-ACT 2019-03-22 10:59:00 [place] Bojorquez [facility] POCT-ACT 2019-03-22 10:32:00 Reno Berlin [facility] L CATH & PCI 2019-03-22 10:18:00 Peyton [facility] POCT-GLUCOSE METER 2019-03-22 07:33:00 [place] Bojorquez [facility] APTT 2019-03-22 02:06:00 Peyton [facility] BASIC METABOLIC PANEL (7) 2019-03-22 02:06:00 [place] Bojorquez [facility] B-TYPE NATRIURETIC FACTOR 2019-03-22 02:06:00 Nas Minor [facility] (BNP) [facility] CALCIUM, IONIZED 2019-03-22 02:06:00 [facility] MAGNESIUM 2019-03-22 02:06:00 Nas Minor [facility] PHOSPHORUS 2019-03-22 02:06:00 Nas Minor [facility] LIPID PANEL 2019-03-22 02:06:00 Devaughn Herrera [facility] CBC W/PLT COUNT & AUTO 2019-03-22 02:06:00 Nas Minor I [facility] US ABDOMEN COMPLETE 2019-03-22 00:10:00 [facility] POCT-GLUCOSE METER 2019-03-21 21:24:00 [facility] 2019-03-21 18:57:00 [place] Bojorquez [facility] POCT-GLUCOSE METER 2019-03-21 17:26:00 [place] Bojorquez [facility] ECG 12-LEAD 2019-03-21 17:24:35 Unknown, Hl7 [facility] CT BRAIN WITHOUT IV 2019-03-21 16:58:00 [place] Bojorquez [facility] TROPONIN I 2019-03-21 15:07:00 Nas Minor [facility] XR SHOULDER LEFT COMPLETE 2019-03-21 14:25:00 [place] Bojorquez [address] POCT-GLUCOSE METER 2019-03-21 12:58:00 [place] Bojorquez [facility] REPORT OF PROCEDURE - 2019-03-21 12:27:13 [facility] UPPER ENDOSCOPY 2019-03-21 12:00:00 [facility] 2019-03-21 10:36:00 [place] Bojorquez [facility] POCT-GLUCOSE METER 2019-03-21 07:39:00 [place] Bo[place] [facility] APTT 2019-03-21 03:19:00 Spencer Cortes [facility] BASIC METABOLIC PANEL (7) 2019-03-21 02:23:00 [place] Bojorquez [facility] CBC (HEMOGRAM ONLY) 2019-03-21 02:22:00 [place] Bojorquez [facility] POCT-GLUCOSE METER 2019-03-20 21:46:00 [place] Bojorquez [facility] APTT 2019-03-20 19:09:00 [place] Bojorquez [facility] POCT-GLUCOSE METER 2019-03-20 18:20:00 [place] Bojorquez [facility] PROTEIN, RANDOM URINE 2019-03-20 17:57:00 Nas Minor [facility] CREATININE, RANDOM URINE 2019-03-20 17:57:00 Nas Minor [facility] URINALYSIS W/ MICROSCOPIC 2019-03-20 17:57:00 Nas Minor [facility] XR CHEST 1 VIEW 2019-03-20 15:12:00 Nas Minor [facility] APTT 2019-03-20 12:19:00 Fredrick Gamez [facility] TROPONIN I 2019-03-20 12:19:00 Felton Cardenas [facility] [place] POCT-GLUCOSE METER 2019-03-20 11:45:00 [place] Bojorquez [facility] POCT-GLUCOSE METER 2019-03-20 07:37:00 [place] Bojorquez [facility] TROPONIN I 2019-03-20 05:54:00 Felton Cardenas [facility] [place] BASIC METABOLIC PANEL (7) 2019-03-20 00:43:00 Felton Cardenas [facility] MAGNESIUM 2019-03-20 00:43:00 [facility] HEMOGLOBIN A1C 2019-03-20 00:43:00 Felton Cardenas [facility] [place] TROPONIN I 2019-03-20 00:43:00 [facility] APTT 2019-03-20 00:43:00 Felton Cardenas [facility] [place] CBC W/PLT COUNT & AUTO 2019-03-20 00:43:00 Felton [facility] ECG 12-LEAD 2019-03-20 00:29:38 Unknown, Hl7 [facility] RHYTHM STRIP - SCAN 2019-02-06 11:22:14 Provider, Default [facility] REPORT OF PROCEDURE - 2019-02-01 09:00:28 Provider, Default [facility] ENDOSCOPY SCAN [facility] RHYTHM STRIP - SCAN 2019-02-01 09:00:26 Provider, Default [facility] POCT-GLUCOSE METER 2019-01-30 09:05:00 Romain Mendez [facility] ECG 12-LEAD 2019-01-30 06:27:50 Josué Villagomez [facility] BASIC METABOLIC PANEL (7) 2019-01-30 05:56:00 Nas Minor [facility] B-TYPE NATRIURETIC FACTOR 2019-01-30 05:56:00 Nas Minor [facility] (BNP) [facility] CALCIUM, IONIZED 2019-01-30 05:56:00 Nas Minor [facility] MAGNESIUM 2019-01-30 05:56:00 Nas Minor [facility] PHOSPHORUS 2019-01-30 05:56:00 Nas Minor [facility] URIC ACID 2019-01-30 05:56:00 Nas Minor [facility] CBC W/PLT COUNT & AUTO 2019-01-30 05:56:00 Nas Minor I [facility] POCT-GLUCOSE METER 2019-01-29 21:09:00 Romain Mendez [facility] POCT-GLUCOSE METER 2019-01-29 17:02:00 Romain Mendez [facility] SODIUM, RANDOM URINE 2019-01-29 14:24:00 Delbert Barron [facility] CREATININE, RANDOM URINE 2019-01-29 14:24:00 Delbert Barron [facility] URINALYSIS W/ MICROSCOPIC 2019-01-29 14:24:00 Delbert Barron [facility] PROTEIN, RANDOM URINE 2019-01-29 14:24:00 Nas Minor [facility] BASIC METABOLIC PANEL (7) 2019-01-29 13:24:00 Nas Minor [facility] MAGNESIUM 2019-01-29 13:24:00 Nas Minor [facility] PHOSPHORUS 2019-01-29 13:24:00 Nas Minor [facility] XR CHEST 1 VIEW 2019-01-29 13:14:[address] [facility] POCT-GLUCOSE METER 2019-01-29 11:38:00 Andrea Romain [facility] POCT-GLUCOSE METER 2019-01-29 07:45:00 Andrea Romain [facility] ECG 12-LEAD 2019-01-29 06:42:02 Unknown, Hl7 [facility] CBC (HEMOGRAM ONLY) 2019-01-29 05:04:00 Dahlia [facility] POCT-GLUCOSE METER 2019-01-28 21:56:00 Andrea Romain [facility] ECHOCARDIOGRAM REPORT - 2019-01-28 21:21:26 Provider, Default [facility] C. DIFFICILE GDH TOXIN 2019-01-28 18:41:00 [facility]OOL 2019-01-28 18:40:00 [facility] POCT-GLUCOSE METER 2019-01-28 11:46:00 [facility] 2D ECHO W/ DOPPLER 2019-01-28 11:25:00 [facility] (CW/PW/COLOR) [facility] APTT 2019-01-28 08:48:00 [facility] POCT-GLUCOSE METER 2019-01-28 08:28:00 [facility] CBC (HEMOGRAM ONLY) 2019-01-28 04:28:00 [facility] BASIC METABOLIC PANEL (7) 2019-01-28 04:28:00 Christian R[facility]os [facility] APTT 2019-01-28 04:28:00 Dahlia [facility] POCT-GLUCOSE METER 2019-01-27 22:00:00 Ye [facility] APTT 2019-01-27 21:12:00 Dahlia [facility] POCT-GLUCOSE METER 2019-01-27 17:39:00 Bandealheidi [facility] PT/APTT 2019-01-27 16:27:00 Bandealheidi [facility] PT/APTT 2019-01-27 12:58:00 Bandla [facility] POCT-GLUCOSE METER 2019-01-27 12:35:00 [facility] POCT-[facility]UCOSE METER 2019-01-27 09:31:00 [facility] 12-LEAD 2019-01-27 07:06:37 [facility] 2019-01-27 05:55:00 [facility] POCT-GLUCOSE METER 2019-01-27 03:52:00 [facility] CBC (HEMOGRAM ONLY) 2019-01-27 03:47:00 [facility] APTT 2019-01-27 03:47:00 [facility] BASIC METABOLIC PANEL (7) 2019-01-27 03:47:00 Saadia Anders [facility] POCT-GLUCOSE METER 2019-01-26 21:23:00 [facility] PLATELET COUNT 2019-01-26 18:42:00 Saadia Anders [facility] APTT 2019-01-26 18:42:00 Saadia Anders [facility] POCT-GLUCOSE METER 2019-01-26 13:34:00 Ye [facility] POCT-GLUCOSE METER 2019-01-26 08:21:00 Ye [facility] ECG 12-LEAD 2019-01-26 08:12:06 Dahlia [facility] POCT-GLUCOSE METER 2019-01-26 05:42:00 Ye [facility] LIPOPROTEIN (A) 2019-01-26 05:34:00 Dahlia [facility] TROPONIN I 2019-01-26 05:34:00 [facility] CBC (HEMOGRAM ONLY) 2019-01-26 05:34:00 Dahlia [facility] XR CHEST 1 VIEW 2019-01-25 23:56:00 Dahlia [facility] Medical Center MAGNESIUM 2019-01-25 23:19:00 Dahlia [facility] COMPREHENSIVE METABOLIC 2019-01-25 23:19:00 [facility] 2019-01-25 23:19:00 [facility] B-TYPE NATRIURETIC FACTOR 2019-01-25 23:19:00 [facility] (BNP) [facility] PROTHROMBIN TIME/INR 2019-01-25 23:19:00 [facility] APTT 2019-01-25 23:19:00 [facility] CBC W/PLT COUNT & AUTO 2019-01-25 23:19:00 Dahlia [facility] ECG 12-LEAD 2019-01-25 22:51:27 Dahlia [facility] POCT-GLUCOSE METER 2019-01-25 22:10:00 Ye [facility] RHYTHM STRIP - SCAN 2019-01-01 11:34:32 Provider, Default [facility] Scanning [facility] REPORT OF PROCEDURE - 2018-12-27 07:06:43 Provider, Default [facility] - ENDOSCOPY SCAN Scanning [facility] CARDIAC CATH REPORT - SCAN 2018-12-27 07:06:36 Provider, Default [facility] RHYTHM STRIP - SCAN 2018-12-27 07:06:27 Provider, Default [facility] POCT-GLUCOSE METER 2018-12-25 11:53:00 Puneet Snider [facility] POCT-GLUCOSE METER 2018-12-25 06:53:00 Puneet Snider [facility] CALCIUM, IONIZED 2018-12-25 04:14:00 Nas Minor [facility] BASIC METABOLIC PANEL (7) 2018-12-25 04:13:00 Nas Minor [facility] B-TYPE NATRIURETIC FACTOR 2018-12-25 04:13:00 Nas Minor [facility] (BNP) [facility] MAGNESIUM 2018-12-25 04:13:00 Nas Minor [facility] PHOSPHORUS 2018-12-25 04:13:00 Nas Minor [facility] CBC W/PLT COUNT & AUTO 2018-12-25 04:13:00 Nas Minor [facility] POCT-GLUCOSE METER 2018-12-24 22:48:00 Paul [facility] POCT-ACT 2018-12-24 22:03:00 Paul [facility] POCT-GLUCOSE METER 2018-12-24 20:12:00 Puneet Snider [facility] POCT-ACT 2018-12-24 17:18:00 Paul Puneet [facility] POCT-ACT 2018-12-24 16:51:00 Paul Puneet [facility] L CATH & PCI 2018-12-24 14:49:00 Spencer Cortes [facility] POCT-GLUCOSE METER 2018-12-24 12:46:00 Paul [facility] POCT-GLUCOSE METER 2018-12-24 08:25:00 [facility] 2018-12-24 08:24:00 Paul [facility] COMPREHENSIVE METABOLIC 2018-12-24 01:13:00 Cosmo [facility] APTT 2018-12-24 01:13:00 Andrew [facility] ECG 12-LEAD 2018-12-23 22:36:24 Unknown, Hl7 [facility] POCT-GLUCOSE METER 2018-12-23 17:53:00 Paul [facility] APTT 2018-12-23 16:08:00 Andrew [facility] POCT-GLUCOSE METER 2018-12-23 12:58:00 Paul [facility] POCT-GLUCOSE METER 2018-12-23 08:40:00 Paul [facility] CALCIUM, IONIZED 2018-12-23 05:20:00 [facility] COMPREHENSIVE METABOLIC 2018-12-23 05:20:00 [facility] 2018-12-23 05:20:00 [facility] PHOSPHORUS 2018-12-23 05:20:00 [facility] B-TYPE NATRIURETIC FACTOR 2018-12-23 05:20:00 [facility] APTT 2018-12-23 05:20:00 Andrew [facility] TROPONIN I 2018-12-23 05:20:00 Andrew [facility] CBC W/PLT COUNT & AUTO 2018-12-23 05:20:00 Cosmo [facility] ECG 12-LEAD 2018-12-23 04:44:34 Unknown, Hl7 [facility] POCT-GLUCOSE METER 2018-12-22 21:03:00 Paul [facility] APTT 2018-12-22 19:53:00 Morales, Delbert Jerman [facility] POCT-GLUCOSE METER 2018-12-22 17:20:00 Puneet Snider [facility] APTT 2018-12-22 12:55:00 Delbert Morales [facility] POCT-GLUCOSE METER 2018-12-22 12:53:00 Puneet Snider [facility] POCT-GLUCOSE METER 2018-12-22 08:25:00 Puneet Snider [facility] B-TYPE NATRIURETIC FACTOR 2018-12-22 04:53:00 Iván [facility] (BNP) [facility] CALCIUM, IONIZED 2018-12-22 04:53:00 Iván [facility] IRON, TIBC, % SAT. 2018-12-22 04:53:00 [facility] 2018-12-22 04:53:00 Cosmo [facility] MAGNESIUM 2018-12-22 04:52:00 Nas Minor [facility] PHOSPHORUS 2018-12-22 04:52:00 Nas Minor [facility] COMPREHENSIVE METABOLIC 2018-12-22 04:52:00 Replaced By [facility] RETICULOCYTE COUNT 2018-12-22 04:52:00 [facility] HEMOGLOBIN A1C 2018-12-22 04:52:00 Spencer Cortes [facility] TROPONIN I 2018-12-22 04:52:00 Saadia Anders [facility] APTT 2018-12-22 04:52:00 Delbert Morales [facility] CBC W/PLT COUNT & AUTO 2018-12-22 04:52:00 Todd Wilburnneet [facility] POCT-GLUCOSE METER 2018-12-21 21:54:00 Puneet Snider [facility] ECHOCARDIOGRAM REPORT - 2018-12-21 21:21:27 Provider, Default [facility] I [facility] APTT 2018-12-21 20:04:00 Delbert Morales [facility] US RENAL COMPLETE 2018-12-21 19:58:00 [facility] POCT-GLUCOSE METER 2018-12-21 17:28:00 Puneet Snider [facility] APTT 2018-12-21 13:55:00 Delbert Morales [facility] CREATININE, RANDOM URINE 2018-12-21 13:08:00 Iván [facility] PROTEIN, RANDOM URINE 2018-12-21 13:08:00 Iván [facility] SODIUM, RANDOM URINE 2018-12-21 13:08:00 Iván [facility] URINALYSIS W/ MICROSCOPIC 2018-12-21 13:08:00 Iván [facility] TROPONIN I 2018-12-21 11:48:00 Delbert Morales [facility] 2D ECHO W/ DOPPLER 2018-12-21 10:22:[address] [facility] (CW/PW/COLOR) [facility] POCT-GLUCOSE METER 2018-12-21 09:59:00 [facility] PT/APTT 2018-12-21 07:39:00 Papito Augustine [facility] APTT 2018-12-21 04:00:00 Delbert Morales [facility] CBC (HEMOGRAM ONLY) 2018-12-21 04:00:00 Delbert Morales [facility] BASIC METABOLIC PANEL (7) 2018-12-21 04:00:00 Delbert Morales [facility] TROPONIN I 2018-12-21 04:00:00 Delbert Morales [facility] TROPONIN I 2018-12-21 00:32:00 Delbert Morales [facility] POCT-GLUCOSE METER 2018-12-21 00:29:00 Papito Augustine [facility] XR CHEST 1 VIEW 2018-12-20 20:38:00 Lorraine, Papito Charu [facility] [place] COMPREHENSIVE METABOLIC 2018-12-20 20:33:00 LorrainePapito foley [facility] TROPONIN I 2018-12-20 20:33:00 MinaPapito [facility] B-TYPE NATRIURETIC FACTOR 2018-12-20 20:33:00 MinaPapito [facility] (BNP) [facility] PT/APTT 2018-12-20 20:33:00 Papito Augustine [facility] MAGNESIUM 2018-12-20 20:33:00 [facility] W/PLT COUNT & AUTO 2018-12-20 20:33:00 MinaPapito [facility] CRITICAL CARE 2018-12-20 20:19:22 Mina [facility] ECG 12-LEAD 2018-12-20 20:04:52 Mina [facility] VASCULAR DIAGRAM -SCAN 2018-11-22 12:20:29 Provider, [facility] PERMANENT LAB REPORT - 2018-11-14 12:32:13 Provider, [facility] RHYTHM STRIP - SCAN 2018-11-14 12:32:10 Provider, [facility] REPORT OF PROCEDURE - 2018-11-14 12:32:08 Provider, [facility] ENDOSCOPY [facility] CARDIAC CATH REPORT - SCAN 2018-11-14 12:32:03 Provider, [facility] POCT-GLUCOSE METER 2018-11-13 11:50:[address] [facility] POCT-GLUCOSE METER 2018-11-13 09:10:[address] [facility] POCT-GLUCOSE METER 2018-11-13 06:48:[address] [facility] URINALYSIS W/ MICROSCOPIC 2018-11-13 01:25:00 Nas Minor [facility] MAGNESIUM 2018-11-13 01:01:00 Daya Fair [facility] B-TYPE NATRIURETIC FACTOR 2018-11-13 01:01:00 Nas Minor [facility] (BNP) [facility] PHOSPHORUS 2018-11-13 01:01:00 Nas Minor [facility] CALCIUM, IONIZED 2018-11-13 01:01:00 Cosmo [facility] COMPREHENSIVE METABOLIC 2018-11-13 01:01:00 Cosmo [facility] CBC W/PLT COUNT & AUTO 2018-11-13 01:01:00 Cosmo [facility] POCT-ACT 2018-11-13 00:40:00 Peyton, [facility] POCT-ACT 2018-11-12 23:27:00 Peyton [facility] POCT-GLUCOSE METER 2018-11-12 21:31:[address] [facility] POCT-ACT 2018-11-12 21:29:00 [facility] POCT-ACT 2018-11-12 17:50:00 [facility] POCT-ACT 2018-11-12 16:49:00 [facility] POCT-ACT 2018-11-12 16:11:00 [facility] L CATH & PCI 2018-11-12 15:58:00 Peyton, [facility] C. DIFFICILE GDH TOXIN 2018-11-12 14:14:00 Saadia Anders [facility] [place] CARDIAC PET PERFUSION 2018-11-12 12:09:00 Peyton [facility] - REST AND/OR STRESS Medical Cente r TREADMILL 2018-11-12 12:06:27 Unknown, Hl7 [facility](NON-NUCLEAR Medical Ce nter TREADMILL) ECG 12-LEAD 2018-11-12 10:01:02 Unknown, Hl7 [facility] APTT 2018-11-12 10:01:00 Peyton [facility] POCT-GLUCOSE METER 2018-11-12 08:34:00 [facility]IP[facility]EL 2018-11-12 04:18:00 Manjula [facility] HEMOGLOBIN A1C 2018-11-12 04:18:00 Manjula [facility] MAGNESIUM 2018-11-12 04:18:00 Manjula [facility] CALCIUM, IONIZED 2018-11-12 04:18:00 [facility] COMPREHENSIVE METABOLIC 2018-11-12 04:18:[address] [facility] [place] PHOSPHORUS 2018-11-12 04:18:00 Replaced By [facility] APTT 2018-11-12 04:18:00 Peyton [facility] CBC W/PLT COUNT & AUTO 2018-11-12 04:18:00 [facility] APTT 2018-11-11 22:02:00 [facility] ECHOCARDIOGRAM REPORT - 2018-11-11 21:20:37 Provider, Default I [facility] POCT-GLUCOSE METER 2018-11-11 17:08:00 [facility] APTT 2018-11-11 15:24:00 [facility] 2D ECHO W/ DOPPLER 2018-11-11 13:14:57 Delbert Bentley [facility] (CW/PW/COLOR) [facility] POCT-GLUCOSE METER 2018-11-11 12:39:00 [facility] POCT-GLUCOSE METER 2018-11-11 08:53:00 [facility] TROPONIN I 2018-11-11 08:24:00 Dariana Beverly [facility] XR CHEST 1 VIEW 2018-11-11 08:05:00 Delbert Bentley [facility] es - PORTABLE/BEDSIDE [facility] BASIC METABOLIC PANEL (7) 2018-11-11 00:39:00 Mc [facility] HEPATIC FUNCTION PANEL 2018-11-11 00:39:00 Mc [facility] MAGNESIUM 2018-11-11 00:39:00 Mc [facility] TSH/FREE T4 IF INDICATED 2018-11-11 00:39:00 Delbert Bentley [facility] TROPONIN I 2018-11-11 00:39:00 [facility] B-TYPE NATRIURETIC FACTOR 2018-11-11 00:39:00 [facility] PT/APTT 2018-11-11 00:39:00 Spencer Cortes [facility] CBC W/PLT COUNT & AUTO 2018-11-11 00:39:[address] [facility] [place] ECG 12-LEAD 2018-11-11 00:12:37 Unknown, Hl7 [facility] Encounters Start End Encounter Admission Attending Care Care Encounter Source Date/Time Date/Time Type Type Clinicians Facility Department ID 2019-08-09 2019-08-09 [facility] [id number] 14:57:00 14:57:00 [employer] [facility] [employer] [facility] Medicine l Medicine Outpati ent Clinics 2019-07-31 2019-07-31 [facility] [id number] 10:40:00 10:40:00 [facility] [employer] [facility] Medicine l Medicine Outpati ent Clinics 2019-07-10 2019-07-10 [facility] [id number] 14:25:00 14:25:00 [facility] [employer] [facility] Medicine l Medicine Outpati ent Clinics 2019-06-28 2019-06-28 [facility] [id number] 10:34:00 10:34:00 [facility] [employer] [facility] Medicine l Medicine Outpati ent Clinics 2019-06-17 2019-06-17 [facility] [id number] 15:21:00 15:21:00 [place] [employer] [place] [facility] Medicine l Medicine Outpati ent Clinics 2019 2019 [facility] [id number] 13:30:00 13:30:00 [place] [employer] s [place] [facility] Medicine l Medicine Outpati ent Clinics 2019-05-31 2019-05-31 [facility] [id number] 16:05:00 16:05:00 [place] [employer] s [place] [facility] Medicine l Medicine Outpati ent Clinics 2019-05-30 2019-05-30 [facility] [id number] 11:58:00 11:58:00 [place] [employer] [facility] l Medicine Outpati ent Clinics 2019-05-17 2019-05-17 [facility] [id number] 14:51:00 14:51:00 t [email or web address] [facility] Medicine Outpati ent Clinics 2019-04-18 2019-04-18 [facility] [id number] 08:45:00 08:45:00 t [employer] [place] [facility] l Medicine Outpati ent Clinics 2019-04-11 2019-04-11 [facility] [id number] 08:26:00 08:26:00 t [employer] [place] [facility] Medicine l Medicine Outpati ent Clinics 2019-03-26 2019-03-26 [facility] [id number] 10:15:00 10:15:00 t [place] [employer] s [place] [facility] Medicine Medicine Outpati ent Clinics 2019-03-21 2019-03-21 [facility] [id number] 09:50:00 09:50:00 t [email or web address] [facility] Medicine Outpati ent Clinics 2019-03-18 2019-03-18 [facility] [id number] 13:29:00 13:29:00 t [place] [employer] s [place] [facility] l Medicine Outpati ent Clinics 2019-02-11 2019-02-11 [facility] [id number] 13:30:00 13:30:00 [place] [employer] s - Drive [facility] Medicine Medicine Outpati ent Clinics 2019-01-23 2019-01-23 [facility] [id number] 10:15:00 10:15:00 [place] [employer] s - Drive [facility] l Medicine Outpati ent Clinics 2019-01-21 2019-01-21 [facility] [id number] 13:25:00 13:25:00 [place] [employer] s - Drive [facility] Medicine l Medicine Outpati ent Clinics 2018-12-24 2018-12-24 [facility] [id number] 14:34:00 14:34:00 [place] [employer] s - Drive [facility] [facility] l Medicine Outpati ent Clinics 2018-12-21 2018-12-21 [facility] [id number] 14:44:00 14:44:00 [place] [employer] s - Drive [facility] Medicine Outpati ent Clinics 2018-12-19 2018-12-19 [facility] [id number] 17:03:00 17:03:00 [place] [employer] s - Drive [facility] l Medicine Outpati ent Clinics 2018-12-03 2018-12-03 [facility] [id number] [address] 14:00:00 14:00:00 t [place] [employer] s - Drive [facility] l Medicine Outpati ent Clinics 2018-11-26 2018-11-26 [facility] [id number] 13:30:00 13:30:00 [place] [employer] s - Drive [facility] l Medicine Outpati ent Clinics 2018-10-16 2018-10-16 [facility] [id number] 11:15:00 11:15:00 t Specialty/U Amalia kes - Specialty rology [facility] a /Urology Clinic l Clinic Outpati ent Clinics 2018-10-08 2018-10-08 [facility] [id number] 15:33:00 15:33:00 [place] [employer] s - Drive [facility] l Medicine Outpati ent Clinics 2018-10-08 2018-10-08 [facility] [id number] 14:00:00 14:00:00 [place] [employer] s - Drive [facility] Medicine l Medicine Outpati ent Clinics 2018-10-08 2018-10-08 [facility] [id number] 14:00:00 14:00:00 t Specialty/U Amalia kes - Specialty rology [facility] a /Urology Clinic l Clinic Outpati ent Clinics 2018-09-17 2018-09-17 [facility] [id number] 10:32:00 10:32:00 [place] [employer] [place] s - Drive [facility] Medicine Medicine Outpati ent Clinics 2018-09-06 2018-09-06 [facility] [id number] 13:30:00 13:30:00 t [place] [employer] [place] s - Drive [facility] l Medicine Outpati ent Clinics 2018-09-04 2018-09-04 [facility] [id number] 14:45:00 14:45:00 t [place] [employer] [place] s - Drive [facility] Medicine l Medicine Outpati ent Clinics 2018-08-07 2018-08-07 [facility] [id number] 08:25:00 08:25:00 t [place] [employer] [place] s - Drive [facility] Medicine l Medicine Outpati ent Clinics 2018-06-26 2018-06-26 [facility] [id number] 10:41:00 10:41:00 [place] [employer] [place] s - Drive [facility] Medicine l Medicine Outpati ent Clinics 2018-06-12 2018-06-12 [facility] [id number] 10:30:00 10:30:00 [place] [employer] [place] s - Drive [facility] Medicine Outpati ent Clinics 2018 2018 [facility] [id number] 11:54:00 11:54:00 [place] [employer] [place] s - Drive [facility] Medicine l Medicine Outpati ent Clinics 2018-03-14 2018-03-14 [facility] [id number] 15:00:00 15:00:00 t [email or web address] [facility] 2018-02-21 2018-02-21 [facility] [id number] 13:15:00 13:15:00 t Specialty/U Amalia kes - Specialty rology [facility] 2018-02-21 2018-02-21 [facility] [id number] 09:57:00 09:57:00 t [email or web address] [facility] 2018-02-21 2018-02-21 [facility] [id number] 09:30:00 09:30:00 t Specialty/U Amalia kes - Specialty rology [facility] 2018-02-21 2018-02-21 [facility] [id number] 08:32:00 08:32:00 t [email or web address] [facility] ent Clinics 2017-12-06 2017-12-06 [facility] [id number] 14:30:00 14:30:00 t [facility] ent Clinics 2017-11-29 2017-11-29 [facility] [id number] 09:30:00 09:30:00 t [facility] ent Clinics 2017-11-01 2017-11-01 [facility] [id number] 15:00:00 15:00:00 t [facility] ent Clinics 2017-11-01 2017-11-01 [facility] [id number] 14:19:00 14:19:00 t [email or web address] [facility] ent Clinics 2017-11-01 2017-11-01 Outpatient Annalisa Fang [id number] [facility] 14:02:00 14:02:00 Alex armandos - DO [facility] Outpati ent Clinics 2017-09-06 2017-09-06 [facility] [id number] 10:30:00 10:30:00 t [place] [employer] s - [facility] Outpati ent Clinics 2017-07-12 2017-07-12 [facility] [id number] 11:48:00 11:48:00 t [place] [employer] [facility] Outpati ent Clinics 2017-07-03 2017-07-03 [facility] [id number] 10:15:00 10:15:00 t [employer] [facility] 2017-06-08 2017-06-08 [facility] [id number] 12:16:00 12:16:00 t [employer] [facility] 2017-05-16 2017-05-16 [facility] [id number] 11:00:00 11:00:00 t Specialty/U Amalia kes - [facility]log[facility] Clin[facility] 2017-05-08 2017-05-08 [facility] [id number] 10:45:00 10:45:00 t [employer] [facility] Results Test Description Test Time Test Comments Results Result Comments Source Platelet Aggregation: Drug Effect 2019-05-29 16:27:00 Test Item Value Reference Range Interpretation Comme nts Arachadonic Acid (test code = 13 % 63-89 L 5993-1) Interpretation (test code = [place] [address]-2) arachidonic acid suggests aspirin-like effect.Decreased aggregation with ADP which indicates platelet dysfunction that may be due to medication effect, uremia, or other platelet function disorders. Clinical correlation is required. Pathologist: (test code = 2621) Talia Villarreal MD (electronic signature) Platelets (test code = 2656) 184 150- 450 K/CU MM ADP (test code = 08342-2) 11 % 62-100 L Platelet Rich Plasma (test code = 243 200- 300 k/cu mm 2134) KAREN (test code = KAREN) Platelet function studies by aggregation methodology on samples with platelet count <75,000/CU MM are unreliable; platelet function assessment should not be based on a single test.Sawmill Supervisor ID - [id number] Lab Interpretation (test code = Abnormal 97123-0) [facility] AGGREG[facility]: DRUG [id number] 16:27:00 Test Item Value Reference Range Interpretation Comments ARACHADONIC ACID 13 % 63-89 L RESULT(AKER) (test code = 2138) PLATELET AGG DRUG Decreased response to INTERPRETATION (AKER) arachidonic acid (test code = 2408) suggests aspirin-like effect. PLATELET AGG DRUG Decreased aggregation INTERPRETATION (AKER) with ADP which (test code = 706398) indicates platelet dysfunction that may be due to medication effect, uremia, or other platelet function disorders. Clinical correlation is required. [id number] Talia Villarreal, ([facility]) (test code = (electronic 0945) signature) PLATELET COUNT AGG 184 K/CU MM 150-450 (BEAKER) (test code = 2656) PLATELET RICH 243 k/cu mm 200-300 PLASMA(BEAKER) (test code = 2134) Platelet function studies by aggregation methodology on samples with platelet count <75,000/CU MMare unreliable; platelet function assessment should not be based on a single test.Sawmill Supervisor ID - [id number]-Glucose [id number] 13:37:00 Test Item Value Reference Range Interpretation Comments POC-Glucose Meter (test 298 mg/dL 70-110 H : No tified RN/: code = 1538) TESTED AT [facility] [address] [facility], [address]: Sawmill Supervisor/Techni rebeca ID = [id number] for LIZ WATSON Lab Interpretation (test Abnormal code = 77404-3) [facility] Francisco[facility]CT-GLUCOSE [id number] 13:37:00 Test Item Value Reference Range Interpretation Comments POC-GLUCOSE METER 298 mg/dL 70-110 H : Notified SOLITARIO/: ([facility]) (test code = TESTED AT [place] [id number] 1538) [facility], [address]: Sawmill Supervisor/Techni rebeca ID = [id number] for BE LL, BEAULA Venous doppler legs [id number] 08:20:35Ejection FractionSLE ECHO HEARTLAB MKCKESSON CPACSRight Impression1. There is [...] Name HENRIQUE ARECHIGA Date of Study 05/28/2019 ESCOBDEO Age 78 Visit Number [id number] Gender Female Accession Number [id number] Date of 1940 Referring Peyton Choe Room Number 7835 Physician Community Marketing Manager Sly Shelby [facility] Interpreting Brandi Camara Physician ProcedureType of Study: Veins: Lower Extremities [...] in cm/s ; Diameters are [facility] POCT-GLUCOSE [id number] 07:54:00 Test Item Value Reference Range Interpretation Comments POC-GLUCOSE METER 270 mg/dL 70-110 H : TESTED A T [facility] [address] (OJ) (test code = [place], 1538) [address]: Sawmill Supervisor/Techni rebeca ID = [id number] for LIZ PRIEST Calcium, [id number] 05:34:00 Test Item Value Reference Range Interpretation Comments Calcium, Ion (test code = 1993-) 1.16 mmol/L 1.12-1.27 pH, Blood (test code = 72559-1) 7.40 [facility] Francisco[facility]CIUM, [id number] 05:34:00 Test Item Value Reference Range Interpretation Comments CALCIUM IONIZED ([facility]) (test 1.16 mmol/L 1.12-1.27 code = 698) PH, BLOOD ([facility]) (test code = 7.40 1810) Basic metabolic [id number] 05:20:00 Test Item Value Reference Range Interpretation [...] Calcium (test code = 9.1 mg/dL 8.4-10.2 50745-0) EGFR (test code = 13 mL/min/1.73 [place] [address]-4) NOT ACCURATE CREATININE CLEARANCE IN PREDICTING GLOMERULAR FILTRATION RATE . ESTIMATED GFR I S NOT APPLICABLE FOR DIALYSIS PATIENTS. KAREN (test code = KAREN) Sawmill Supervisor ID - [facility] Lab Interpretation Abnormal (test code = 56853-7) [facility] FranciscoCreatine Kinase (CK)2019-05-29 05:20:00 Test Item Value Reference Range Interpretation Comments Total CK (test code = 94 U/L 29-200 7-6) KAREN (test code = KAREN) Sawmill Supervisor [facility] Lab Interpretation (test Normal code = 16983-1) [facility] FranciscoMagnesium2020-04-08 05:20:00 Test Item Value Reference Range Interpretation Comments Magnesium (test code = 2.1 mg/dL 1.6-2.6 09946-5) KAREN (test code = KAREN) Sawmill Supervisor ID [facility] Lab Interpretation (test Normal code = 18651-1) [facility] Francisco[facility]-type Natriuretic Factor (BNP)2019-05-29 05:20:00 Test Item Value Reference Range Interpretation Comments BNP (test code = 60890-8) 1228 pg/mL 0-100 H KAREN (test code = KAREN) Sawmill Supervisor ID - [facility] Lab Interpretation (test Abnormal code = 10800-6) [facility] FranciscoPhosphorus2020-04-08 05:20:00 Test Item Value Reference Range Interpretation Comments Phosphorus (test code = 3.7 mg/dL 2.3-4.7 2777-1) KAREN (test code = KAREN) Sawmill Supervisor ID Devin GARRISON M Lab Interpretation (test Normal code = 32755-3) [facility] FranciscoUric [id number] 05:20:00 Test Item Value Reference Range Interpretation Comments Uric Acid (test code = 9.0 mg/dL 2.6-7.2 H 3084-1) KAREN (test code = KAREN) Sawmill Supervisor STEPHANE GARRISON M Lab Interpretation (test Abnormal code = 24203-7) [facility] FranciscoURIC [id number] 05:20:00 Test Item Value Reference Range Interpretation Comments URIC ACID (BEAKER) (test code = 9.0 mg/dL 2.6-7.2 H 773) Sawmill Supervisor ID - MELI [id number] 05:20:00 Test Item Value Reference Range Interpretation Comments MAGNESIUM (BEAKER) (test code = 2.1 mg/dL 1.6-2.6 627) Sawmill Supervisor ID - MELI [id number] 05:20:00 Test Item Value Reference Range Interpretation Comments PHOSPHORUS (BEAKER) (test code = 3.7 mg/dL 2.3-4.7 604) Sawmill Supervisor STEPHANE GARRISON MCREATINE KINASE (CK)2019-05-29 05:20:00 Test Item Value Reference Range Interpretation Comments CREATINE KINASE TOTAL (BEAKER) (test 94 U/L 29-200 code = 380) Sawmill Supervisor ID Devin GARRISON MB-TYPE NATRIURETIC FACTOR (BNP)2019-05-29 05:20:00 Test Item Value Reference Range Interpretation Comments B-TYPE NATRIURETIC PEPTIDE 1228 pg/mL 0-100 H (BEAKER) (test code = 700) Sawmill Supervisor ID - MELI MBASIC METABOLIC [id number] 05:20:00 Test Item Value Reference Range Interpretation [...] S NOT APPLICABLE FOR DIALYSIS PATIEN TS. Sawmill Supervisor ID - MELI MCBC (hemogram only)2019-05-29 04:59:00 [...] 450 K/CU MM MPV (test code = 44915-8) 9.9 fL 9.4-12.3 nRBC (test code = 413) 0 0- 0 /100 WBC Lab Interpretation (test code = Abnormal 80496-5) [facility] with platelet count + automated [id number] 04:59:00 Test Item Value Reference Range Interpretation [...] 450 K/CU MM MPV (test code = 78674-3) 9.9 fL 9.4-12.3 nRBC (test code = [...] 2801) Lab Interpretation (test code = Abnormal 17687-5) [facility] W/PLT COUNT & AUTO [id number] 04:59:00 Test Item Value Reference Range Interpretation [...] (BEAKER) (test code = 413) U/S, RENAL, [id number] 03:58:00Reason for exam:->AKIShould this be performed at [...] MDReport Verified Date/Time: 05/29/2019 03:58:20 US renal [id number] 03:58:00Interface, External Ris In - 05/29/2019 4:00 [...] Signed: Ochoa Fry MDReportVerified Date/Time: 05/29/2019 03:58:20 [facility] [id number] 21:44:00 Test Item Value Reference Range Interpretation Comments POC-GLUCOSE METER 230 mg/dL 70-110 H : TESTED [place] [address] ([facility]) (test code = [facility], 1538) [address]: Sawmill Supervisor/Techni rebeca ID = [id number] for DARIAN SWEENEY POC ACTIVATED CLOTTING [id number] 20:46:00 Test Item Value Reference Range Interpretation Comments Activated Clotting Time 136 sec : 74 -137 seconds, (test code = 441) Baseline: TESTED AT [facility] [address] [facility], [address]: Sawmill Supervisor/Techni rebeca ID = [id number] for DARIAN SWEENEY [facility]PO[facility]-[id number] 20:46:00 Test Item Value Reference Range Interpretation Comments ACTIVATED CLOTTING TIME 136 sec : 74 -137 seconds, (AKER) (test code = Baseli ne: TESTED AT 441) [facility] [address] [facility], [address]: Sawmill Supervisor/Techni rebeca ID = [id number] for DARIAN SWEENEY Urinalysis w/[id number] 18:58:00 Test Item Value Reference Range Interpretation Comments Color, UA (test code = Light Yellow 5778-6) Clarity, UA (test code = Clear 5767-9) Specific [place], UA (test 1.012 1.001-1.035 code = 5811-5) pH, UA (test code = 6.0 5.0-8.0 5803-2) Protein, UA (test code = 20 mg/dL Negative A 12029-8) Glucose, UA (test code = 150 mg/dL Negative A 365) Ketones, UA (test code = Negative Negative 2514-8) Bilirubin, UA (test code = Negative Negative 89501-3) Blood, UA (test code = Trace Negative A 45621-8) Nitrite, UA (test code = Negative Negative 5802-4) Leukocytes, UA (test code Negative Negative = 5799-2) Urobilinogen, UA (test 0.2 mg/dL 0.2-1 code = 89307-5) RBC, UA (test code = 1 /HPF 93087-9) WBC, UA (test code = <1 /HPF 5821-4) Bacteria, UA (test code = Many 93195-5) Specimen Source (test code = 2795) KAREN (test code = KAREN) Sawmill Supervisor ID - [auto]Sawmill Supervisor ID - ny Lab Interpretation (test Abnormal code = 23916-7) [facility] FranciscoURINALYSIS W/ [id number] 18:58:00 Test Item Value Reference Range Interpretation [...] = Many 517) SOURCE(BEAKER) (test code = 5675) Sawmill Supervisor ID - [auto]Sawmill Supervisor ID - [id number] 18:35:00 Test Item Value Reference Range Interpretation Comments ACTIVATED CLOTTING TIME 164 sec : 74 -137 seconds, (BEAKER) (test code = Baseli ne: TESTED AT 441) [facility] [address] [facility], [address]: Sawmill Supervisor/Techni rebeca ID = [id number] for SHONDA HENDRICKS BASIC METABOLIC [id number] 16:41:00 Test Item Value Reference Range Interpretation [...] S NOT APPLICABLE FOR DIALYSIS PATIEN TS. Sawmill Supervisor ID - [id number] 16:33:00 Test Item Value Reference Range Interpretation Comments ACTIVATED CLOTTING TIME 202 sec : 74 -137 seconds, (BEAKER) (test code = Baseli ne: TESTED AT 441) [address], [facility] 30: Sawmill Supervisor/Techni rebeca ID = [id number] for SHONDA HENDRICKS CBC (HEMOGRAM ONLY)2019-05-28 16:25:00 [...] WBC 0-0 (BEAKER) (test code = 413) [id number] 14:53:00 Test Item Value Reference Range Interpretation Comments ACTIVATED CLOTTING TIME 246 sec : 74 -137 seconds, (BEAKER) (test code = Baseli ne: TESTED AT 441) [address], [facility] 30: Sawmill Supervisor/Techni rebeca ID = [id number] for Riley Cuevas [id number] 14:07:00 Test Item Value Reference Range Interpretation Comments ACTIVATED CLOTTING TIME 213 sec : 74 -137 seconds, (BEAKER) (test code = Baseli ne: TESTED AT 441) [address], [facility] 30: Sawmill Supervisor/Techni rebeca ID = [id number] for Riley Cuevas [id number] 14:07:00 Test Item Value Reference Range Interpretation Comments ACTIVATED CLOTTING TIME 109 sec : 74 -137 seconds, (BEAKER) (test code = Baseli ne: TESTED AT 441) [facility] [address] [facility], [address]: Sawmill Supervisor/Techni rebeca ID = [id number] for Riley Cuevas Creatinine, random [id number] 13:05:00 Test Item Value Reference Range Interpretation Comments Creatinine, Ur 65.1 mg/dL (test code = 2161-8) KAREN (test code = Reference Range: No KAREN) NormalsOperator ID - BS [facility] FranciscoProtein, random [id number] 13:05:00 Test Item Value Reference Range Interpretation Comments Protein, Urine (test code = 10 mg/dL 0-14 2888-6) KAREN (test code = KAREN) Sawmill Supervisor ID - BS Lab Interpretation (test Normal code = 00179-0) [facility] random [id number] 13:05:00 Test Item Value Reference Range Interpretation Comments Sodium Urine (test 35 meq/L code = 2955-3) KAREN (test code = Reference Range: No KAREN) NormalsOperator ID - BS [facility] FranciscoCREATININE, RANDOM [id number] 13:05:00 Test Item Value Reference Range Interpretation Comments CREATININE URINE (BEAKER) (test 65.1 mg/dL code = 375) Reference Range: No NormalsOperator ID - BSPROTEIN, RANDOM [id number] 13:05:00 Test Item Value Reference Range Interpretation Comments PROTEIN, URINE (BEAKER) (test code = 10 mg/dL 0-14 1569) Sawmill Supervisor ID - BSSODIUM, RANDOM [id number] 13:05:00 Test Item Value Reference Range Interpretation Comments SODIUM URINE (BEAKER) (test code = 35 meq/L 243) Reference Range: No NormalsOperator ID - BSPOCT-GLUCOSE [id number] 12:14:00 Test Item Value Reference Range Interpretation Comments POC-GLUCOSE METER 313 mg/dL 70-110 H : TESTED A T [facility] 6720 (BEAKER) (test [facility] = [facility] [address]: Sawmill Supervisor/Techni rebeca ID = [id number] for SHONDA MORA POCT-GLUCOSE [id number] 09:43:00 Test Item Value Reference Range Interpretation Comments POC-GLUCOSE METER 272 mg/dL 70-110 H : Notified RN/MD: (BEOJ) (test code = TESTED AT [facility] 6798 6718) [place], [address]: Sawmill Supervisor/Techni rebeca ID = [id number] for LIZ PRIEST [id number] 09:00:00 Test Item Value Reference Range Interpretation Comments PTT (test code = 41766-0) 67.2 22.5- 36.0 seconds H Lab Interpretation (test code = Abnormal 81301-5) [facility] FranciscoAPTT2020-04-07 09:00:00 Test Item Value Reference Range Interpretation Comments PARTIAL THROMBOPLASTIN TIME 67.2 seconds 22.5-36.0 H (BEAKER) (test code = 760) BASIC METABOLIC [id number] 07:07:00 Test Item Value Reference Range Interpretation [...] S NOT APPLICABLE FOR DIALYSIS PATIEN TS. Sawmill Supervisor ID - [id number] 06:56:00 Test Item Value Reference Range Interpretation [...] = 413) CBC W/PLT COUNT & AUTO [id number] 06:51:00 Test Item Value Reference Range Interpretation [...] 0-1 PERCENT (BEAKER) (test code = 2801) ECG 12 [id number] 06:33:54Interface, External Ris In - 05/28/2019 6:33 AM CDTVentricular Rate 91 BPMAtrial Rate 91 BPMP-R Interval 184 msQRS Duration 112 msQ-T Interval 410 msQTC Calculation(Bazett) 504 msP [place] 80 degreesR [place] 53 degreesT [place] 215 degreesNormal sinus rhythmIncomplete left bundle branch blockST depression inferior and anterolateral leads + ST elevation in aVR consider ischemiaProlonged QTAbnormal ECGWhen compared with ECG of 22:06ST now depressed in Lateral leadsST now elevated in aVRConfirmed by MD JORGE, MATHEUS ([id number]) on 05/28/2019 6:33:47 [facility] I 2019-05-28 05:00:00 Test Item Value Reference Range Interpretation Comments Troponin I (test code = 1.06 ng/mL 0-0.03 94298-0) KAREN (test code = KAREN) Troponin I [...] BS Lab Interpretation (test Abnormal code = 37830-1) [facility] [id number] 05:00:00 Test Item Value Reference Range Interpretation [...] failure, acidosis, acute neurological disease, and persistent tachyarrhythmia.Sawmill Supervisor ID - BSTROPONIN [id number] 00:21:00 Test Item Value Reference Range Interpretation [...] failure, acidosis, acute neurological disease, and persistent tachyarrhythmia.Sawmill Supervisor ID - BSBASIC METABOLIC PANEL 2019-05-28 00:18:00 [...] S NOT APPLICABLE FOR DIALYSIS PATIEN TS. Sawmill Supervisor ID - BSB-TYPE NATRIURETIC FACTOR (BNP)2019-05-28 00:13:00 Test Item Value Reference Range Interpretation Comments B-TYPE NATRIURETIC PEPTIDE (BEAKER) 416 pg/mL 0-100 H (test code = 700) Sawmill Supervisor ID - [id number]/[id number] 23:58:00 Test Item Value Reference Range Interpretation Comments Protime (test code = 13.3 11.9- 14.2 5902-2) seconds INR (test code = 1.0 <=5.9 6301-6) PTT (test code = 25.2 22.5- 36.0 86823-1) seconds KAREN (test code = KAREN) Effective 07/18/2018: PT Reference Range ChangeNew: 11.9-14.2 Previous: 11.7-14.7 RECOMMENDED COUMADIN/WARFARIN INR THERAPY RANGESSTANDARD DOSE: 2.0-3.0 Includes: PROPHYLAXIS for venous thrombosis, systemic embolization; TREATMENT for venous thrombosis and/or pulmonary embolus.HIGH RISK: Target INR is 2.5-3.5 for patients wiht mechanical heart valves. Lab Interpretation Normal (test code = 09069-4) [facility] FranciscoAPTT2020-04-06 23:58:00 Test Item Value Reference Range Interpretation Comments PARTIAL THROMBOPLASTIN TIME 24.1 seconds 22.5-36.0 (BEAKER) (test code = 760) 6 hours after starting heparin infusion and as indicated per sliding scale [id number] 23:58:00 Test Item Value Reference Range Interpretation [...] is2.5-3.5 for patients wiht mechanical heart valves.Platelet [id number] 23:50:00 Test Item Value Reference Range Interpretation Comments Platelets (test code = 209 150- 450 K/CU MM 777-3) KAREN (test code = KAREN) Sawmill Supervisor ID - [id number] Lab Interpretation (test Normal code = 94100-5) [facility] W/PLT COUNT & AUTO [id number] 23:50:00 Test Item Value Reference Range Interpretation [...] PERCENT (BEAKER) (test code = 2801) PLATELET [id number] 23:50:00 Test Item Value Reference Range Interpretation Comments PLATELET COUNT (BEAKER) (test 209 K/CU MM 150-450 code = 756) Sawmill Supervisor ID - [id number], CHEST, 1 VIEW, NON [id number] 23:36:00Reason for exam:->CHEST PAIN, dyspneaShould this be [...] 23:36:18 XR chest 1 view portable / [id number] 23:36:00Interface, External Ris In - 05/27/2019 11:38 [...] Ochoa Fry MDReport Verified Date/Time: 05/27/2019 23:36:18 [facility] 2019-[facility]23 11:53:00 Test Item Value Reference Range Interpretation Comments POC-GLUCOSE METER 309 mg/dL 70-110 H : TESTED A T [facility] 6720 [facility] (test code = JODY Gipson [facility], 1538) 246[address]: Sawmill Supervisor/Techni rebeca ID = [id number] for WHATLEYNOVA MOISE Carotid doppler [id number] 09:28:23Ejection FractionSST. LUKE'S JEROME ECHO HEARTLAB MKCKESSON CPACSRight Impression1. There is [...] Name HENRIQUE ARECHIGA Date of Study 03/22/2019 RANDEE Age 78 Visit Number [id number] Gender Female Accession Number [id number] Date of 1940 Referring [facility] Room Number C633 Physician Malcom De T Interpreting Brandi Camara, Physician ProcedureType of [...] + + - Additional Measurements:ICAPSV/CCAPSV 1.49.ICAEDV/CCAEDV 1.48.[facility] [id number] 08:34:00 Test Item Value Reference Range Interpretation Comments POC-GLUCOSE METER 209 mg/dL 70-110 H : TESTED A [place] [facility] 0066 (CRISTY) (test code = JODY [place], 1538) 16[address]: Sawmill Supervisor/Techni rebeca ID = [id number] for NOVA PERSAUD Comprehensive metabolic [id number] 07:27:00 Test Item Value Reference Range Interpretation Comments Protein, Total (test 6.3 6.0- 8.3 gm/dL Speci men slightly code = 2885-2) hemolyzed Albumin (test code = 3.4 g/dL 3.5-5 L Specime n slightly 58622-0) hemolyzed Alkaline Phosphatase 52 U/L 40-150 (test code = 6768-6) Total Bilirubin (test 0.4 mg/dL 0.2-1.2 Specim en slightly code = 1975-2) hemolyzed Sodium (test code = 140 meq/L 314-308 5974-2) Potassium (test code = 4.1 meq/L 3.5-5.1 Speci men slightly 2823-3) hemolyzed Chloride (test code = 102 meq/L 98-107 2075-0) CO2 (test code = 25 meq/L 22-29 2028-9) BUN (test code = 49 mg/dL 7-21 H 3094-0) Creatinine (test code 2.86 mg/dL 0.57-1.25 H Specim en slightly = 2160-0) hemolyzed Glucose (test code = 164 mg/dL 70-105 H 2345-7) Calcium (test code = 9.0 mg/dL 8.4-10.2 03009-1) AST (test code = 27 U/L 5-34 Specimen sl ightly 1920-8) hemolyzed ALT (test code = 14 U/L 6-55 Specimen sl ightly 1742-6) hemolyzed EGFR (test code = 16 mL/min/1.73 [place] [address]-7) NOT ACCURATE CREATININE CLEARANCE IN PREDICTING GLOMERULAR FILTRATION RATE . ESTIMATED GFR I S NOT APPLICABLE FOR DIALYSIS PATIENTS. KAREN (test code = KAREN) Sawmill Supervisor ID - PIAYA L Lab Interpretation Abnormal (test code = 39142-4) [facility] Francisco[facility]PREHENSIVE METABOLIC [id number] 07:27:00 Test Item Value Reference Range Interpretation [...] S NOT APPLICABLE FOR DIALYSIS PATIEN TS. Sawmill Supervisor ID - PIAYA LCBC W/PLT COUNT & AUTO [id number] 03:51:00 Test Item Value Reference Range Interpretation [...] PERCENT (BEAKER) (test code = 2801) POCT-GLUCOSE [id number] 22:09:00 Test Item Value Reference Range Interpretation Comments POC-GLUCOSE METER 172 mg/dL 70-110 H : TESTED A T [facility] 6720 (BEAKER) (test code = [place], 1538) [address]: Sawmill Supervisor/Techni rebeca ID = [id number] for HAIR ASH POCT-GLUCOSE [id number] 17:30:00 Test Item Value Reference Range Interpretation Comments POC-GLUCOSE METER 284 mg/dL 70-110 H : TESTED A T [facility] 6720 (BEAKER) (test code = [place], 1538) [address]: Sawmill Supervisor/Techni rebeca ID = [id number] for NOVA PERSAUD 2D Echo W/Doppler(CW/PW/Color)2019-03-22 17:25:25Ejection FractionSLEH ECHO HEARTLAB MKCKESSON CPACSInterface, External Ris In - 03/22/2019 5:25 PM C STTransthoracic Echocardiography Report (TTE) Demographics Patient Name HENRIQUE ARECHIGA Date of Study 03/22/2019 RANDEE Gender Female Visit Number [id number] Race [id number] Room Number [id number] Number Date of 1940 Referring Physician Peyton Choe Age 78 year(s) Community Marketing Manager Daniel Khan Interpreting Raul Acosta MD Physician [...] LVOT CO: 6.85 l/min LVOT CI: 4.1 l/min/m^2[facility] METABOLIC [id number] 16:26:00 Test Item Value Reference Range Interpretation [...] S NOT APPLICABLE FOR DIALYSIS PATIEN TS. Sawmill Supervisor ID - AAHAMIDPOCT-GLUCOSE [id number] 16:16:00 Test Item Value Reference Range Interpretation Comments POC-GLUCOSE METER 233 mg/dL 70-110 H : TESTED A T [facility] 6720 (BEAKER) (test code = [facility], 1538) 82185: Sawmill Supervisor/Techni rebeca ID = [id number] for NOVA PERSAUD CBC (HEMOGRAM ONLY)2019-03-22 16:08:00 [...] WBC 0-0 (BEAKER) (test code = 413) [id number] 11:06:00 Test Item Value Reference Range Interpretation Comments ACTIVATED CLOTTING TIME 263 sec Refe rence Range: (BEAKER) (test code = 74-137 seconds, 441) Baseline/TESTED AT [place] [id number] [facility] 7703 0 [id number] 10:50:00 Test Item Value Reference Range Interpretation Comments ACTIVATED CLOTTING TIME 263 sec Refe rence Range: (BEAKER) (test code = 74-137 seconds, 441) Baseline/TESTED AT [address] 7703 0 POCT-GLUCOSE [id number] 07:45:00 Test Item Value Reference Range Interpretation Comments POC-GLUCOSE METER 188 mg/dL 70-110 H : TESTED A T [facility] 6720 (BEAKER) (test code = JODY Gipson [facility], 1538) 46239: Sawmill Supervisor/Techni rebeca ID = [id number] for BRANDI KIMBLE BASIC METABOLIC [id number] 02:49:00 Test Item Value Reference Range Interpretation [...] S NOT APPLICABLE FOR DIALYSIS PATIEN TS. Sawmill Supervisor ID - MARILU LB-TYPE NATRIURETIC FACTOR (BNP)2019-03-22 02:44:00 Test Item Value Reference Range Interpretation Comments B-TYPE NATRIURETIC PEPTIDE (BEAKER) 815 pg/mL 0-100 H (test code = 700) Sawmill Supervisor ID - MARILU LLipid [id number] 02:42:00 Test Item Value Reference Range Interpretation Comments Triglycerides (test 102 mg/dL code = 2571-8) Cholesterol (test code 161 mg/dL = 2093-3) HDL (test code = 40 mg/dL 2085-9) LDL Calculated (test 101 mg/dL code = 81244-9) KAREN (test code = KAREN) Triglyceride Reference Range: Low Risk <150 Borderline 150-199 High Risk 200-499 Very High Risk >=500 Cholesterol Reference Range: Low Risk <200 Borderline 200-239 High Risk >240 HDL Cholesterol Reference Range: Low Risk >=60 High Risk <40 LDL Cholesterol Reference Range: Optimal <100 Near Optimal 100-129 Borderline 130-159 High 160-189 Very High >=190 Sawmill Supervisor ID - MARILU Mcintyre [facility] [id number] 02:42:00 Test Item Value Reference Range Interpretation Comments PHOSPHORUS (BEAKER) (test code = 4.4 mg/dL 2.3-4.7 604) Sawmill Supervisor ID - MARILU [id number] 02:42:00 Test Item Value Reference Range Interpretation Comments MAGNESIUM (BEAKER) (test code = 2.1 mg/dL 1.6-2.6 627) Sawmill Supervisor ID - MARILU LLIPID [id number] 02:42:00 Test Item Value Reference Range Interpretation [...] Borderline 130-159 High 160-189 Very High >=190 Sawmill Supervisor ID - [id number] 02:36:00 Test Item Value Reference Range Interpretation Comments PARTIAL THROMBOPLASTIN TIME 85.7 seconds 22.5-36.0 H (BEAKER) (test code = 760) CALCIUM, [id number] 02:33:00 Test Item Value Reference Range Interpretation Comments CALCIUM IONIZED (BEAKER) (test 1.10 mmol/L 1.12-1.27 L code = 698) PH, BLOOD (BEAKER) (test code = 7.40 0220) CBC W/PLT COUNT & AUTO [id number] 02:23:00 Test Item Value Reference Range Interpretation [...] (BEAKER) (test code = 2801) U/S, ABDOMINAL, [id number] 01:50:00Reason for exam:->abd painFINAL REPORT INDICATION: abd [...] on a nonemergent basis. Signed: Socorro Méndez MDReport Verified Date/Time: 03/22/2019 01:50:03 US abdomen [id number] 01:50:00Interface, External Ris In - 03/22/2019 1:53 [...] on a nonemergent basis. Signed: Socorro Méndez [facility] Verified Date/Time: 03/22/2019 01:50:03 [facility] [id number] 21:37:00 Test Item Value Reference Range Interpretation Comments POC-GLUCOSE METER 257 mg/dL 70-110 H : TESTED A T [facility] 6720 (BEOJ) (test code = [place], 1538) 964[address]: Sawmill Supervisor/Techni rebeca ID = [id number] for EMILIO CUEVAS [id number] 19:18:00 Test Item Value Reference Range Interpretation Comments PARTIAL THROMBOPLASTIN TIME 53.5 seconds 22.5-36.0 H (CRISTY) (test code = 760) POCT-GLUCOSE [id number] 17:38:00 Test Item Value Reference Range Interpretation Comments POC-GLUCOSE METER 246 mg/dL 70-110 H : TESTED A T [facility] 6720 (CRISTY) (test code = [place], 1538) 39876: Sawmill Supervisor/Techni rebeca ID = [id number] for AR SHY HAYDEN CT, BRAIN, WITHOUT [id number] 17:36:00Reason for exam:->Left sided weakness, more so [...] Signed: Kavitha Box Verified Date/Time: 03/21/2019 17:36:00 CT brain without IV [id number] 17:36:00Interface, External Ris In - 03/21/2019 5:38 [...] Kavitha Box MDReport Verified Date/Time: 03/21/2019 17:36:00 [facility] 2019-03-21 15:50:00 Test Item Value Reference Range [...] failure, acidosis, acute neurological disease, and persistent tachyarrhythmia.Sawmill Supervisor ID - BSRAD, SHOULDER, COMPLETE (MIN 2 VIEWS), [id number] 14:38:00Reason for exam:->shoulder pain with ROMFINAL REPORT [...] MDReport Verified Date/Time: 03/21/2019 14:38:21 Reading Location: [facility] Radiology Reading Room XR shoulder complete 2 views min [id number] 14:38:00 Interface, External Ris In - 03/21/2019 [...] MDReport Verified Date/Time: 03/21/2019 14:38:21 Reading Location: [facility] Radiology Reading Room [facility] [id number] 13:19:00 Test Item Value Reference Range Interpretation Comments POC-GLUCOSE METER 155 mg/dL 70-110 H : TESTED A T [facility] 6720 (BEAKER) (test code = JOSEPHMARY Brandan [place], 1538) 69[address]: Sawmill Supervisor/Techni rebeca ID = [id number] for PRIYANKA CARRILLOI [id number] 11:14:00 Test Item Value Reference Range Interpretation Comments PARTIAL THROMBOPLASTIN TIME 108.5 seconds 22.5-36.0 H (BEAKER) (test code = 760) POCT-GLUCOSE [id number] 07:51:00 Test Item Value Reference Range Interpretation Comments POC-GLUCOSE METER 198 mg/dL 70-110 H : TESTED A T [facility] 6720 (BEAKER) (test code = JOSEPHMARY [place], 1538) 450[address]: Sawmill Supervisor/Techni rebeca ID = [id number] for SHY MIRAMONTES [id number] 03:52:00 Test Item Value Reference Range Interpretation Comments PARTIAL THROMBOPLASTIN 106.2 seconds 22.5-36.0 H B.no .[id number] ok to TIME (BEAKER) (test released result. code = 760) BASIC METABOLIC [id number] 02:58:00 Test Item Value Reference Range Interpretation [...] S NOT APPLICABLE FOR DIALYSIS PATIEN TS. Sawmill Supervisor ID - MELI MCBC (HEMOGRAM ONLY)2019-03-21 02:32:00 [...] 0-0 (BEAKER) (test code = 413) POCT-GLUCOSE [id number] 21:58:00 Test Item Value Reference Range Interpretation Comments POC-GLUCOSE METER 281 mg/dL 70-110 H : [facility] (BE[facility]ER[facility] (test code [facility], = 1538) 33073: Sawmill Supervisor/Techni rebeca ID = [id number] for WINSOME CHRISTIANSON [id number] 19:51:00 Test Item Value Reference Range Interpretation Comments PARTIAL THROMBOPLASTIN TIME 88.1 seconds 22.5-36.0 H (BEAKER) (test code = 760) CREATININE, RANDOM [id number] 18:56:00 Test Item Value Reference Range Interpretation Comments CREATININE URINE (BEAKER) (test 56.6 mg/dL code = 375) Reference Range: No NormalsOperator ID - BSPROTEIN, RANDOM [id number] 18:56:00 Test Item Value Reference Range Interpretation Comments PROTEIN, URINE (BEAKER) (test code = 11 mg/dL 0-14 1569) Sawmill Supervisor ID - BSURINALYSIS W/ [id number] 18:48:00 Test Item Value Reference Range Interpretation [...] = 516) SOURCE(BEAKER) (test code = 2795) Sawmill Supervisor ID - [auto]Sawmill Supervisor ID - hankPOCT-GLUCOSE [id number] 18:32:00 Test Item Value Reference Range Interpretation Comments POC-GLUCOSE METER 190 mg/dL 70-110 H : TESTED A T [facility] 6720 (BEAKER) (test code = JODY Brandan [facility], 1538) 32484: Sawmill Supervisor/Techni rebeca ID = [id number] for SHY MIRAMONTES RAD, CHEST, 1 VIEW, NON [id number] 15:28:00Reason for exam:->Fluid statusShould this be performed [...] MDReport Verified Date/Time: 03/20/2019 15:28:46 [facility] Electronically signed by: NOEMY STORM M.D. on03/20/2019 03:28 PMTROPONIN [id number] 13:36:00 Test Item Value Reference Range Interpretation [...] failure, acidosis, acute neurological disease, and persistent tachyarrhythmia.Sawmill Supervisor ID - TRISTON [id number] 12:50:00 Test Item Value Reference Range Interpretation Comments PARTIAL THROMBOPLASTIN TIME 65.6 seconds 22.5-36.0 H (BEAKER) (test code = 760) POCT-GLUCOSE [id number] 11:57:00 Test Item Value Reference Range Interpretation Comments POC-GLUCOSE METER 154 mg/dL 70-110 H : TESTED A T [facility] 6720 (BEAKER) (test code = JODY Gipson [facility], 1538) 52432: Sawmill Supervisor/Techni rebeca ID = [id number] for SHY MIRAMONTES Hemoglobin [id number] 09:21:00 Test Item Value Reference Range Interpretation Comments Hemoglobin A1C (test code = 4548-4) 8.5 % 4.3-6.1 H Lab Interpretation (test code = Abnormal 96453-4) [facility] Francisco[facility]MOGLOBIN [id number] 09:21:00 Test Item Value Reference Range Interpretation Comments HEMOGLOBIN A1C (BEAKER) (test code = 8.5 % 4.3-6.1 H 368) POCT-GLUCOSE [id number] 07:53:00 Test Item Value Reference Range Interpretation Comments POC-GLUCOSE METER 99 mg/dL 70-110 : TESTED A T [facility] 6720 (BEAKER) (test code = JOSEPHMARY Brandan [facility], 1538) 85587: Sawmill Supervisor/Techni rebeca ID = [id number] for KARLEY MANCUSO TROPONIN [id number] 06:40:00 Test Item Value Reference Range Interpretation [...] failure, acidosis, acute neurological disease, and persistent tachyarrhythmia.Sawmill Supervisor ID - CHRISTIANONTROPONIN [id number] 01:53:00 Test Item Value Reference Range Interpretation [...] failure, acidosis, acute neurological disease, and persistent tachyarrhythmia.Sawmill Supervisor ID - CHRISTIANOALEJANDROASIC METABOLIC PANEL 2019-03-20 01:52:00 [...] S NOT APPLICABLE FOR DIALYSIS PATIEN TS. Sawmill Supervisor ID - [id number] 01:25:00 Test Item Value Reference Range Interpretation Comments MAGNESIUM (BEAKER) (test code = 2.2 mg/dL 1.6-2.6 627) Sawmill Supervisor ID - BBEPZUAX7473-35-72 01:23:00 Test Item Value Reference Range Interpretation Comments PARTIAL THROMBOPLASTIN 109.9 seconds 22.5-36.0 H B.no .[id number] ok to TIME (BEAKER) (test released result. code = 760) Prior to initiating heparinCBC W/PLT COUNT & AUTO [id number] 01:02:00 Test Item Value Reference Range Interpretation [...] (a) (test 57 nmol/L <75 code = 7217857) KAREN (test code = KAREN) Performing Lab EZ [facility] [address] [place] [address] Heidi Novoa MD, PhD, ROBY [facility] FranciscoPOCT-GLUCOSE [id number] 09:17:00 Test Item Value Reference Range Interpretation Comments POC-GLUCOSE METER 161 mg/dL 70-110 H : TESTED A T [facility] 6720 (BEAKER) (test code = [place], 1538) [address]: Sawmill Supervisor/Techni rebeca ID = [id number] for DANIELE BAKER BASIC METABOLIC [id number] 07:10:00 Test Item Value Reference Range Interpretation [...] NOT APPLICABLE FOR DIALYSIS PATIEN TS. URIC [id number] 07:07:00 Test Item Value Reference Range Interpretation Comments URIC ACID (BEAKER) (test code = 9.9 mg/dL 2.6-7.2 H 773) [id number] 07:07:00 Test Item Value Reference Range Interpretation Comments MAGNESIUM (BEAKER) (test code = 2.3 mg/dL 1.6-2.6 627) [id number] 07:07:00 Test Item Value Reference Range Interpretation Comments PHOSPHORUS (BEAKER) (test code = 3.3 mg/dL 2.3-4.7 604) B-TYPE NATRIURETIC FACTOR (BNP)2019-01-30 06:44:00 Test Item Value Reference Range Interpretation Comments B-TYPE NATRIURETIC PEPTIDE (BEAKER) 365 pg/mL 0-100 H (test code = 700) CALCIUM, [id number] 06:31:00 Test Item Value Reference Range Interpretation Comments CALCIUM IONIZED (BEAKER) (test 1.08 mmol/L 1.12-1.27 L code = 698) PH, BLOOD (BEAKER) (test code = 7.41 1810) CBC W/PLT COUNT & AUTO [id number] 06:17:00 Test Item Value Reference Range Interpretation [...] PERCENT (BEAKER) (test code = 2801) POCT-GLUCOSE [id number] 21:20:00 Test Item Value Reference Range Interpretation Comments POC-GLUCOSE METER 140 mg/dL 70-110 H : TESTED Carli T [facility] 6720 (BEAKER) (test code = [place], 1538) 16[address]: Sawmill Supervisor/Techni rebeca ID = [id number] for lisa Fatmata CREATININE, RANDOM [id number] 19:07:00 Test Item Value Reference Range Interpretation Comments CREATININE URINE (BEAKER) (test 101.3 mg/dL code = 375) Reference Range: No NormalsPROTEIN, RANDOM [id number] 19:07:00 Test Item Value Reference Range Interpretation Comments PROTEIN, URINE (BEAKER) (test code = 24 mg/dL 0-14 H 1569) SODIUM, RANDOM [id number] 19:07:00 Test Item Value Reference Range Interpretation Comments SODIUM URINE (BEAKER) (test code = 27 meq/L 243) Reference Range: No NormalsPOCT-GLUCOSE [id number] 17:13:00 Test Item Value Reference Range Interpretation Comments POC-GLUCOSE METER 172 mg/dL 70-110 H : TESTED A T [facility] 6720 (BEAKER) (test code = [place], 1538) [address]48[address]: Sawmill Supervisor/Techni rebeca ID = [id number] for JOHNATHAN KINGSLEY URINALYSIS W/ [id number] 15:46:00 Test Item Value Reference Range Interpretation [...] 520) < /HPF SOURCE(BEAKER) (test code = 4355) BASIC METABOLIC [id number] 13:57:00 Test Item Value Reference Range Interpretation [...] S NOT APPLICABLE FOR DIALYSIS PATIEN TS. [id number] 13:56:00 Test Item Value Reference Range Interpretation Comments PHOSPHORUS (BEAKER) (test code = 2.6 mg/dL 2.3-4.7 604) [id number] 13:56:00 Test Item Value Reference Range Interpretation Comments MAGNESIUM (BEAKER) (test code = 2.4 mg/dL 1.6-2.6 627) RAD, CHEST, 1 VIEW, NON [id number] 13:55:00Reason for exam:->Fluid statusShould this be performed at the bedside?->YesFINAL REPORT AP chest Comparison exam: 01/25/2019 History provided: Fluid status Heart size magnified by projection. Lungs currently grossly clear, and vascularity normal. Chronicdeformity of the right humeral neck. Signed: Atul Malave MDReport Verified Date/Time: 01/29/2019 13:55:37 Reading Location: [facility] Diagnostic Imaging Reading Room - [facility] 1.310.12 POCT-GLUCOSE [id number] 11:49:00 Test Item Value Reference Range Interpretation Comments POC-GLUCOSE METER 273 mg/dL 70-110 H : TESTED A T [facility] 6720 (BEMusikki) (test code = JODY Gipson [facility], 153) 48853: Sawmill Supervisor/Techni rebeca ID = [id number] for Tatyana Sterling Clostridium difficile GDH [id number] 11:07:00 Test Item Value Reference Range Interpretation Comments C. Difficle Toxin Negative Negative (test code = 2346568842) C. Difficile GDH Positive Negative A C. difficil e Antigen (test code = present but toxin 3988058606) not detected. Indicates colonization wi th non-toxigenic [...] of kit performance was done by the [facility] Microbiology Lab prior to clinical use. Lab Interpretation Abnormal (test code = 87579-6) [facility] DIFFICILE GDH [id number] 11:07:00 Test Item Value Reference Range Interpretation Comments CDT TOXIN (test code Negative Negative = 9190847222) CDT GDH ANTIGEN Positive Negative A C. difficile present but (test code = toxin not detec elva. 3842959160) Indicates colon ization with non-toxige alexis strain [...] of kit performance was done by the [facility] Microbiology Lab prior to clinical use.POCT-GLUCOSE [id number] 07:57:00 Test Item Value Reference Range Interpretation Comments POC-GLUCOSE METER 227 mg/dL 70-110 H : TESTED A T [facility] 6720 (Kuli Kuli) (test code = JODY Gipson [facility], 153) 92085: Sawmill Supervisor/Techni rebeca ID = [id number] for Tatyana Sterling CBC (HEMOGRAM ONLY)2019-01-29 05:39:00 [...] (BEAKER) (test code = 413) Occult blood, [id number] 22:07:00 Test Item Value Reference Range Interpretation Comments Occult blood (test code = 2335-8) Negative Negative Lab Interpretation (test code = Normal 72930-4) [facility] [id number] 22:07:00 Test Item Value Reference Range Interpretation Comments POC-GLUCOSE METER 229 mg/dL 70-110 H : TESTED A T [facility] 6720 (BEAKER) (test code = [place], 1538) [address]: Sawmill Supervisor/Techni rebeca ID = [id number] for FI TE, SELINA OCCULT BLOOD, [id number] 22:07:00 Test Item Value Reference Range Interpretation Comments FECAL OCCULT BLOOD (BEAKER) (test Negative Negative code = 618) Transthoracic 2D echo w/ doppler (cw/pw/color)2019-01-28 15:33:30Ejection FractionSLEH ECHO HEARTLAB MKCKESSON CPACSInterface, External Ris In - 01/28/2019 3:33 PM CSTTransthoracic Echocardiography Report (TTE) Demographics Patient Name HENRIQUE ARECHIGA Date of Study 01/28/2019 RANDEE Gender Female Visit Number [id number] Race Room Number 8A11 Number Date of 1940 Referring Physician Age 78 year(s) Community Marketing Manager Melani Dozier [facility] Interpreting Physician XIMENA Cormier Procedure Type [...] CO: 4.43 l/min LVOT CI: 2.52 l/min/m^2[facility] 2019-01-28 12:00:00 Test Item Value Reference Range Interpretation Comments POC-GLUCOSE METER 208 mg/dL 70-110 H : Not[facility] RN[facility]MD: [facility] (test code = TESTED AT [facility] 6720 1538) [facility], [address]: Sawmill Supervisor/Techni rebeca ID = [id number] for Veena Omalley [id number] 09:10:00 Test Item Value Reference Range Interpretation Comments PARTIAL THROMBOPLASTIN TIME 77.4 seconds 22.5-36.0 H ([facility]) (test code = 760) POCT-GLUCOSE [id number] 08:40:00 Test Item Value Reference Range Interpretation Comments POC-GLUCOSE METER 153 mg/dL 70-110 H : TESTED A T [facility] 6720 ([facility]) (test code [facility], = 1538) 26408: Sawmill Supervisor/Techni rebeca ID = [id number] for JANETH OTT BASIC METABOLIC [id number] 05:15:00 Test Item Value Reference Range Interpretation [...] S NOT APPLICABLE FOR DIALYSIS PATIEN SAMARIA. [id number] 05:11:00 Test Item Value Reference Range Interpretation [...] 0-0 (BEAKER) (test code = 413) POCT-GLUCOSE [id number] 22:29:00 Test Item Value Reference Range Interpretation Comments POC-GLUCOSE METER 235 mg/dL 70-110 H : TESTED A T [facility] 6720 (BEAKER) (test code = [place], 1538) 10[address]: Sawmill Supervisor/Techni rebeca ID = [id number] for HUGH COCHRAN [id number] 21:49:00 Test Item Value Reference Range Interpretation Comments PARTIAL THROMBOPLASTIN TIME 81.9 seconds 22.5-36.0 H (BEAKER) (test code = 760) POCT-GLUCOSE [id number] 17:50:00 Test Item Value Reference Range Interpretation Comments POC-GLUCOSE METER 236 mg/dL 70-110 H : TESTED A T [facility] 6720 (BEAKER) (test code = JOSEPHMARY Brandan [place], 1538) [address]: Sawmill Supervisor/Techni rebeca ID = [id number] for INDIO ISAACS PT/[id number] 16:52:00 Test Item Value Reference Range Interpretation [...] INR is2.5-3.5 for patients wiht mechanical heart valves.PT/[id number] 13:41:00 Test Item Value Reference Range Interpretation [...] is2.5-3.5 for patients wiht mechanical heart valves.POCT-GLUCOSE [id number] 12:47:00 Test Item Value Reference Range Interpretation Comments POC-GLUCOSE METER 229 mg/dL 70-110 H : TESTED A T [facility] 6720 (BEAKER) (test code = [facility], 1538) [address]: Sawmill Supervisor/Techni rebeca ID = [id number] for RADHA ISAACSFRED POCT-GLUCOSE [id number] 09:42:00 Test Item Value Reference Range Interpretation Comments POC-GLUCOSE METER 188 mg/dL 70-110 H : TESTED A T [facility] 6720 (BEAKER) (test code = [facility], 1538) [address]: Sawmill Supervisor/Techni rebeca ID = [id number] for QU EDER, INDIO [id number] 06:24:00 Test Item Value Reference Range Interpretation Comments PARTIAL THROMBOPLASTIN TIME 86.3 seconds 22.5-36.0 H (BEAKER) (test code = 760) BASIC METABOLIC [id number] 04:52:00 Test Item Value Reference Range Interpretation [...] S NOT APPLICABLE FOR DIALYSIS PATIEN TS. [id number] 04:25:00 Test Item Value Reference Range Interpretation [...] 0-0 (BEAKER) (test code = 413) POCT-GLUCOSE [id number] 04:03:00 Test Item Value Reference Range Interpretation Comments POC-GLUCOSE METER 123 mg/dL 70-110 H : TESTED A T [facility] 6720 (AKER) (test code = [facility], 1538) 63252: Sawmill Supervisor/Techni rebeca ID = [id number] for ANDI ZUNIGA POCT-GLUCOSE [id number] 21:41:00 Test Item Value Reference Range Interpretation Comments POC-GLUCOSE METER 293 mg/dL 70-110 H : TESTED A T [facility] 6720 (AKER) (test code = [facility], 1538) 109[address]: Sawmill Supervisor/Techni rebeca ID = [id number] for ANDI ZUNIGA [id number] 19:17:00 Test Item Value Reference Range Interpretation Comments PARTIAL THROMBOPLASTIN TIME 27.4 seconds 22.5-36.0 (BEAKER) (test code = 760) Prior to initiating heparinPLATELET [id number] 18:53:00 Test Item Value Reference Range Interpretation Comments PLATELET COUNT (AKER) (test 249 K/CU MM 150-450 code = 756) POCT-GLUCOSE [id number] 13:46:00 Test Item Value Reference Range Interpretation Comments POC-GLUCOSE METER 246 mg/dL 70-110 H : Notified RN/MD: (CRISTY) (test code = TESTED AT [place] [address]) [facility], [address]: Sawmill Supervisor/Techni rebeca ID = [id number] for Veena Omalley POCT-GLUCOSE [id number] 08:33:00 Test Item Value Reference Range Interpretation Comments POC-GLUCOSE METER 124 mg/dL 70-110 H : Notified RN/MD: (CRISTY) (test code = TESTED AT [place] [address] 153) [facility], [address]: Sawmill Supervisor/Techni rebeca ID = [id number] for Veena Omalley TROPONIN [id number] 07:02:00 Test Item Value Reference Range Interpretation Comments TROPONIN I (AKER) (test code = 0.27 ng/mL 0.00-0.03 HH 397) Troponin I (TnI) [...] 0-0 (BEAKER) (test code = 413) POCT-GLUCOSE [id number] 05:54:00 Test Item Value Reference Range Interpretation Comments POC-GLUCOSE METER 94 mg/dL 70-110 : TESTED A T [facility] 6720 ([facility]) (test code = JODY Brandan [facility], 1538) 09[address]: Sawmill Supervisor/Techni rebeca ID = [id number] for JEROME NORRIS RAD, CHEST, 1 VIEW, NON [id number] 03:34:00Reason for exam:->chest painShould this be performed [...] Ying MDReport Verified Date/Time: 01/26/2019 03:34:50 TROPONIColin [id number] 00:11:00 Test Item Value Reference Range Interpretation [...] acute neurological disease, and persistent tachyarrhythmia.COMPREHENSIVE METABOLIC [id number] 00:09:00 Test Item Value Reference Range Interpretation [...] pg/mL 0-100 H (test code = 700) [id number] 23:56:00 Test Item Value Reference Range Interpretation Comments MAGNESIUM (BEAKER) 2.3 mg/dL 1.6-2.6 Specimen slightly (test code = 627) hemolyzed [id number] 23:53:00 Test Item Value Reference Range Interpretation Comments PARTIAL THROMBOPLASTIN TIME 20.7 seconds 22.5-36.0 L (BEAKER) (test code = 760) Prior to initiating heparinProthrombin time/[id number] 23:41:00 Test Item Value Reference Range Interpretation [...] heparin Lab Interpretation Normal (test code = 14794-3) [facility]/[id number] 23:41:00 Test Item Value Reference Range Interpretation [...] infusion and as indicated per sliding scaleC W/PLT COUNT & AUTO [id number] 23:33:00 Test Item Value Reference Range Interpretation [...] PERCENT (BEAKER) (test code = 2801) POCT-GLUCOSE [id number] 22:21:00 Test Item Value Reference Range Interpretation Comments POC-GLUCOSE METER 210 mg/dL 70-110 H : TESTED A T [facility] 6720 (BEAKER) (test code = [facility], 1538) [address]: Sawmill Supervisor/Techni rebeca ID = [id number] for RO CRISTAL DONALDERIA POCT-GLUCOSE [id number] 12:57:00 Test Item Value Reference Range Interpretation Comments POC-GLUCOSE METER 318 mg/dL 70-110 H : TESTED A T [facility] 6720 (BEAKER) (test code [facility], = 1538) [address]: Sawmill Supervisor/Techni rebeca ID = [id number] for EDUU ARSH LEX POCT-GLUCOSE [id number] 08:08:00 Test Item Value Reference Range Interpretation Comments POC-GLUCOSE METER 263 mg/dL 70-110 H : TESTED A T [facility] 6720 (BEAKER) (test code = [facility], 1538) 987[address]: Sawmill Supervisor/Techni rebeca ID = [id number] for NOVA PERSAUD CBC W/PLT COUNT & AUTO [id number] 05:21:00 Test Item Value Reference Range Interpretation [...] (BEAKER) (test code = 2801) BASIC METABOLIC [id number] 05:18:00 Test Item Value Reference Range Interpretation [...] S NOT APPLICABLE FOR DIALYSIS PATIEN TS. [id number] 05:17:00 Test Item Value Reference Range Interpretation Comments PHOSPHORUS (BEAKER) (test code = 4.4 mg/dL 2.3-4.7 604) [id number] 05:17:00 Test Item Value Reference Range Interpretation Comments MAGNESIUM (BEAKER) (test code = 2.0 mg/dL 1.6-2.6 627) B-TYPE NATRIURETIC FACTOR (BNP)2018-12-25 04:55:00 Test Item Value Reference Range Interpretation Comments B-TYPE NATRIURETIC PEPTIDE (BEAKER) 775 pg/mL 0-100 H (test code = 700) CALCIUM, [id number] 04:45:00 Test Item Value Reference Range Interpretation Comments CALCIUM IONIZED (BEAKER) (test 1.16 mmol/L 1.12-1.27 code = 698) PH, BLOOD (BEAKER) (test code = 7.32 1810) POCT-GLUCOSE [id number] 23:15:00 Test Item Value Reference Range Interpretation Comments POC-GLUCOSE METER 280 mg/dL 70-110 H : Notified RN/MD: ([facility]) (test code = TESTED AT [facility] 6720 1538) [facility] [facility], [address]: Sawmill Supervisor/Techni rebeca ID = [id number] for KEZIA GILMORE POCT-GLUCOSE [id number] 23:13:00 Test Item Value Reference Range Interpretation Comments POC-GLUCOSE METER 179 mg/dL 70-110 H : TESTED A T [facility] 6720 ([facility]) (test code = JODY Gipson [facility], 1538) 80396: Sawmill Supervisor/Techni rebeca ID = [id number] for KEZIA GILMORE [id number] 22:12:00 Test Item Value Reference Range Interpretation Comments ACTIVATED CLOTTING TIME 147 sec Refe rence Range: (BEAKER) (test code = 74-137 seconds, 441) Baseline/TESTED AT [facility] 6720 [facility] [address] 0 [id number] 17:58:00 Test Item Value Reference Range Interpretation Comments ACTIVATED CLOTTING TIME 257 sec Refe rence Range: (BEAKER) (test code = 74-137 seconds, 441) Baseline/TESTED AT [facility] 6720 [facility] [address]703 0 [id number] 17:57:00 Test Item Value Reference Range Interpretation Comments ACTIVATED CLOTTING TIME 252 sec Refe rence Range: (BEAKER) (test code = 74-137 seconds, 441) Baseline/TESTED AT [place] [id number] [facility] 7[address] 0 POCT-GLUCOSE [id number] 12:58:00 Test Item Value Reference Range Interpretation Comments POC-GLUCOSE METER 150 mg/dL 70-110 H : TESTED A T [place] [address] ([facility]) (test code = [facility], 1538) [address]: Sawmill Supervisor/Techni rebeca ID = [id number] for SALLY DAYANMUKESH [id number] 08:41:00 Test Item Value Reference Range Interpretation Comments PARTIAL THROMBOPLASTIN TIME 69.4 seconds 22.5-36.0 H ([facility]) (test code = 760) POCT-GLUCOSE [id number] 08:37:00 Test Item Value Reference Range Interpretation Comments POC-GLUCOSE METER 115 mg/dL 70-110 H : Notified RN/MD: ([facility]) (test code = TESTED AT [place] [address] 1538) [facility], [address]: Sawmill Supervisor/Techni rebeca ID = [id number] for Adilene Madrigal COMPREHENSIVE METABOLIC [id number] 01:52:00 Test Item Value Reference Range Interpretation Comments TOTAL PROTEIN 6.5 gm/dL 6.0-8.3 Specimen sligh tly ([facility]) (test code = hemoly zed 770) ALBUMIN (AKER) 3.6 g/dL 3.5-5.0 Specimen sl ightly (test [...] S NOT APPLICABLE FOR DIALYSIS PATIEN TS. [id number] 01:29:00 Test Item Value Reference Range Interpretation Comments PARTIAL THROMBOPLASTIN TIME 51.5 seconds 22.5-36.0 H (BEAKER) (test code = 760) POCT-GLUCOSE [id number] 18:32:00 Test Item Value Reference Range Interpretation Comments POC-GLUCOSE METER 185 mg/dL 70-110 H : TESTED A T [facility] 6720 (BEAKER) (test code = [place], 1538) [address]: Sawmill Supervisor/Techni rebeca ID = [id number] for Akash campos POCT-GLUCOSE [id number] 18:31:00 Test Item Value Reference Range Interpretation Comments POC-GLUCOSE METER 210 mg/dL 70-110 H : TESTED A T [facility] 6720 (BEAKER) (test code = JODY Gipson [facility], 1538) [address]: Sawmill Supervisor/Techni rebeca ID = [id number] for Akash Vera POCT-GLUCOSE [id number] 18:29:00 Test Item Value Reference Range Interpretation Comments POC-GLUCOSE METER 150 mg/dL 70-110 H : TESTED A T [facility] 6720 (BEAKER) (test code = JODY Gipson [facility], 1538) [address]: Sawmill Supervisor/Techni rebeca ID = [id number] for LIZ PRIEST [id number] 16:30:00 Test Item Value Reference Range Interpretation Comments PARTIAL THROMBOPLASTIN TIME 98.0 seconds 22.5-36.0 H (BEAKER) (test code = 760) TROPONIN [id number] 09:11:00 Test Item Value Reference Range Interpretation Comments TROPONIN I (BEAKER) (test code = 0.97 ng/mL 0.00-0.03 397) Troponin I (TnI) levels [...] failure, acidosis, acute neurological disease, and persistent tachyarrhythmia.[id number] 07:52:00 Test Item Value Reference Range Interpretation Comments PHOSPHORUS (BEAKER) (test code = 3.9 mg/dL 2.3-4.7 604) [id number] 07:52:00 Test Item Value Reference Range Interpretation Comments MAGNESIUM (BEAKER) (test code = 2.0 mg/dL 1.6-2.6 627) COMPREHENSIVE METABOLIC [id number] 07:52:00 Test Item Value Reference Range Interpretation [...] NOT APPLICABLE FOR DIALYSIS PATIEN TS. CALCIUM, [id number] 07:37:00 Test Item Value Reference Range Interpretation Comments CALCIUM IONIZED (BEAKER) (test 1.14 mmol/L 1.12-1.27 code = 698) PH, BLOOD (BEAKER) (test code = 7.40 1810) B-TYPE NATRIURETIC FACTOR (BNP)2018-12-23 06:42:00 Test Item Value Reference Range Interpretation Comments B-TYPE NATRIURETIC PEPTIDE (BEAKER) 190 pg/mL 0-100 H (test code = 700) [id number] 05:48:00 Test Item Value Reference Range Interpretation Comments PARTIAL THROMBOPLASTIN TIME 90.8 seconds 22.5-36.0 H (BEAKER) (test code = 760) CBC W/PLT COUNT & AUTO [id number] 05:35:00 Test Item Value Reference Range Interpretation [...] PERCENT (BEAKER) (test code = 2801) POCT-GLUCOSE [id number] 21:16:00 Test Item Value Reference Range Interpretation Comments POC-GLUCOSE METER 200 mg/dL 70-110 H : TESTED A T [facility] 6720 (BEAKER) (test code [facility], = 1538) [address]: Sawmill Supervisor/Techni rebeca ID = [id number] for GISSELLE OLMSTEAD [id number] 20:08:00 Test Item Value Reference Range Interpretation Comments PARTIAL THROMBOPLASTIN TIME 51.9 seconds 22.5-36.0 H (BEAKER) (test code = 760) POCT-GLUCOSE [id number] 17:37:00 Test Item Value Reference Range Interpretation Comments POC-GLUCOSE METER 211 mg/dL 70-110 H : TESTED A T [facility] 6720 (CRISTY) (test code = [facility], 1538) [address]: Sawmill Supervisor/Techni rebeca ID = [id number] for Papito lmaDeepa [id number] 13:26:00 Test Item Value Reference Range Interpretation Comments PARTIAL THROMBOPLASTIN TIME 65.2 seconds 22.5-36.0 H (BEAKER) (test code = 760) POCT-GLUCOSE [id number] 13:18:00 Test Item Value Reference Range Interpretation Comments POC-GLUCOSE METER 194 mg/dL 70-110 H : TESTED A T [facility] 6720 (JEEVANAKER) (test code = [facility], 1538) 45[address]: Sawmill Supervisor/Techni rebeca ID = [id number] for Papito lmaDeepa HEMOGLOBIN [id number] 10:07:00 Test Item Value Reference Range Interpretation Comments HEMOGLOBIN A1C (BEAKER) (test code = 10.2 % 4.3-6.1 H 368) [id number] 09:05:00 Test Item Value Reference Range Interpretation Comments Ferritin (test code = 2276-4) 195 ng/mL 5-275 Lab Interpretation (test code = Normal 50539-4) [facility] 09:05:00 Test Item Value Reference Range Interpretation Comments FERRITIN (BEAKER) (test code = 361) 195 ng/mL 5-275 POCT-GLUCOSE [id number] 08:37:00 Test Item Value Reference Range Interpretation Comments POC-GLUCOSE METER 202 mg/dL 70-110 H : TESTED A T [facility] 6720 (BEAKER) (test code = [place], 1538) [address]: Sawmill Supervisor/Techni rebeca ID = [id number] for CLIFF JACOBO CALCIUM, [id number] 06:55:00 Test Item Value Reference Range Interpretation [...] 2502-3) Lab Interpretation (test code = Abnormal 69563-5) [facility], TIBC, % SAT. (WITHOUT FERRITIN)2018-12-22 06:37:00 Test Item Value Reference Range Interpretation Comments IRON (BEAKER) (test code = 547) 85.0 ug/dL 40.0-160.0 TOTAL IRON BINDING CAPACITY 226 ug/dL 250-450 L (BEAKER) (test code = 769) IRON % SATURATION (2) (BEAKER) 38 % 20-55 (test code = 2590) TROPONIN [id number] 05:40:00 Test Item Value Reference Range Interpretation Comments TROPONIN I (BEAKER) (test code = 1.32 ng/mL 0.00-0.03 397) Troponin I (TnI) levels [...] acute neurological disease, and persistent tachyarrhythmia.COMPREHENSIVE METABOLIC [id number] 05:39:00 Test Item Value Reference Range Interpretation [...] pg/mL 0-100 H (test code = 700) [id number] 05:32:00 Test Item Value Reference Range Interpretation Comments PHOSPHORUS (BEAKER) (test code = 4.8 mg/dL 2.3-4.7 H 604) [id number] 05:32:00 Test Item Value Reference Range Interpretation Comments MAGNESIUM (BEAKER) (test code = 2.0 mg/dL 1.6-2.6 627) [id number] 05:19:00 Test Item Value Reference Range Interpretation Comments PARTIAL THROMBOPLASTIN TIME 92.9 seconds 22.5-36.0 H (BEAKER) (test code = 760) Reticulocyte [id number] 05:11:00 Test Item Value Reference Range Interpretation Comments % Retic (test code = 19356-7) 2.0 % 0.5-1.7 H Lab Interpretation (test code = Abnormal 35993-2) [facility] Francisco[facility]ICULOCYTE [id number] 05:11:00 Test Item Value Reference Range Interpretation Comments RETICULOCYTE COUNT PCT (BEAKER) (test 2.0 % 0.5-1.7 H code = 575) CBC W/PLT COUNT & AUTO [id number] 05:11:00 Test Item Value Reference Range Interpretation [...] (BEAKER) (test code = 2801) U/S, RENAL, [id number] 01:46:00Reason for exam:->AKIShould this be performed at [...] nonobstructing nephrolithiasis. Otherwise, unremarkable ultrasound. Signed: Yuan Yingeport Verified Date/Time: 12/22/2018 01:46:35 POCT-GLUCOSE [id number] 22:07:00 Test Item Value Reference Range Interpretation Comments POC-GLUCOSE METER 105 mg/dL 70-110 : TESTED A T [facility] 6720 (BEAKER) (test code = JODY Gipson [facility], 1538) [address]: Sawmill Supervisor/Techni rebeca ID = [id number] for Iza Hamilton [id number] 20:19:00 Test Item Value Reference Range Interpretation Comments PARTIAL THROMBOPLASTIN TIME 75.7 seconds 22.5-36.0 H (BEAKER) (test code = 760) POCT-GLUCOSE [id number] 17:42:00 Test Item Value Reference Range Interpretation Comments POC-GLUCOSE METER 305 mg/dL 70-110 H : [facility] ([facility] (test code = JODY Gipson [facility], 1538) [address]: Sawmill Supervisor/Techni rebeca ID = [id number] for CLIFF JACOBO URINALYSIS W/ [id number] 14:46:00 Test Item Value Reference Range Interpretation [...] SOURCE(BEAKER) (test code = 2795) CREATININE, RANDOM [id number] 14:45:00 Test Item Value Reference Range Interpretation Comments CREATININE URINE (BEAKER) (test 123.0 mg/dL code = 375) Reference Range: No [id number] 14:24:00 Test Item Value Reference Range Interpretation Comments PARTIAL THROMBOPLASTIN TIME 67.3 seconds 22.5-36.0 H (BEAKER) (test code = 760) PROTEIN, RANDOM [id number] 14:23:00 Test Item Value Reference Range Interpretation Comments PROTEIN, URINE (BEAKER) (test code = 20 mg/dL 0-14 H 1569) SODIUM, RANDOM [id number] 14:23:00 Test Item Value Reference Range Interpretation Comments SODIUM URINE (BEAKER) (test code = 26 meq/L 243) Reference Range: No Sxcrbrb9D Echo W/Doppler(CW/PW/Color)2018-12-21 12:36:19 Ejection FractionSLEH ECHO HEARTLAB MKCKESSON CPACSInterface, External Ris In - 12/21/2018 12:36 PM CDTTransthoracic Echocardiography Report (TTE) Demographics Patient Name HENRIQUE ARECHIGA Date of Study 12/21/2018 ESCOBDEO Gender Female Visit Number [id number] Race Room Number 6105 Number Date of 1940 Referring [facility] Physician Age 78 year(s) Community Marketing Manager ALEJANDRO Cutler, RDCS,RVT,RDMS Dressing Room Porter Nader Finley Interpreting Kash Carr MD Physician [...] LVOT CO: 4.47 l/min LVOT CI: 2.63 l/min/m^2CUk[facility] [id number] 12:25:00 Test Item Value Reference Range Interpretation Comments TROPONIN I (BEAKER) (test code = 2.12 ng/mL 0.00-0.03 397) Troponin I (TnI) levels [...] acidosis, acute neurological disease, and persistent tachyarrhythmia.POCT-GLUCOSE [id number] 10:12:00 Test Item Value Reference Range Interpretation Comments POC-GLUCOSE METER 177 mg/dL 70-110 H : TESTED A T [facility] 6720 (CRISTY) (test code = [place], 1538) [address]: Sawmill Supervisor/Techni rebeca ID = [id number] for CLIFF JACOBO PT/[id number] 07:55:00 Test Item Value Reference Range Interpretation Comments PROTIME (BEAKER) (test code = 14.1 seconds 11.9-14.2 759) INR (BEOJ) (test code = 370) 1.2 <=5.9 PARTIAL THROMBOPLASTIN TIME 55.3 seconds 22.5-36.0 H (BEAKER) (test code = 760) Effective 07/18/2018: PT Reference Range ChangeNew: 11.9-14.2 Previous: 11.7- 14.7RECOMMENDED COUMADIN/WARFARIN INR THERAPY RANGESSTANDARD DOSE: 2.0-3.0 Includes: PROPHYLAXIS for venous thrombosis, systemic embolization; TREATMENT for venous thrombosis and/or pulmonary embolus.HIGH RISK: Target INR is2.5-3.5 for patients wiht mechanical heart valves.[id number] 05:00:00 Test Item Value Reference Range Interpretation Comments PARTIAL THROMBOPLASTIN TIME 132.7 seconds 22.5-36.0 H (BEAKER) (test code = 760) 6 hours after starting heparin infusion and as indicated per sliding scale TROPONIN [id number] 04:38:00 Test Item Value Reference Range Interpretation Comments TROPONIN I (BEAKER) (test code = 2.37 ng/mL 0.00-0.03 [facility]) Troponin I (TnI) levels must be [...] acute neurological disease, and persistent tachyarrhythmia.BASIC METABOLIC [id number] 04:37:00 Test Item Value Reference Range Interpretation [...] 0-0 (BEAKER) (test code = 413) TROPONIN [id number] 01:13:00 Test Item Value Reference Range Interpretation [...] acidosis, acute neurological disease, and persistent tachyarrhythmia.POCT-GLUCOSE [id number] 00:48:00 Test Item Value Reference Range Interpretation Comments POC-GLUCOSE METER 226 mg/dL 70-110 H : TESTED A T [facility] 6720 (CRISTY) (test code = [place], 1538) [address]: Sawmill Supervisor/Techni rebeca ID = [id number] for TISHA BISHOP RAD, CHEST, 1 VIEW, NON [id number] 21:25:00Reason for exam:->chest painShould this be performed [...] humeral heads are redemonstrated. Signed: Wilson Valdez MDRort Verified Date/Time:12/20/2018 21:25:44 TROPONIN [id number] 21:11:00 Test Item Value Reference Range Interpretation Comments TROPONIN I (CRISTY) (test code = 1.33 ng/mL 0.00-0.03 397) Troponin I (TnI) levels [...] B-TYPE NATRIURETIC PEPTIDE 1084 pg/mL 0-100 H (CRISTY) (test code = 700) COMPREHENSIVE METABOLIC [id number] 21:05:00 Test Item Value Reference Range Interpretation [...] S NOT APPLICABLE FOR DIALYSIS PATIEN TS. [id number] 21:02:00 Test Item Value Reference Range Interpretation Comments MAGNESIUM (BEAKER) (test code = 2.0 mg/dL 1.6-2.6 627) PT/[id number] 20:58:00 Test Item Value Reference Range Interpretation [...] mechanical heart valves.CBC W/PLT COUNT & AUTO [id number] 20:46:00 Test Item Value Reference Range Interpretation [...] PERCENT (BEAKER) (test code = 2801) CRITICAL [id number] 20:19:22HaPapito manning MD 12/26/2018 3:29 PMCritical CarePerformed [...] or surrogate and interpretation of cardiac output measurements.[facility] Francisco[facility]readmill tolerance(Non-Nuclear Treadmill)2018-11-23 15:05:04Interface, External Ris In - 11/23/2018 3:05 PM CDTProtocol Name Regadenoson Time In Exercise Phase00:01:00 Max. Systolic BP [...] (8485) on 11/12/2018 1:04:52 PMConfirmed by MD LOZANO JORGE ([id number]) on 11/23/2018 3:05:01PMCHI [facility] CenterPOCT-[facility] [id number] 11:57:00 Test Item Value Reference Range Interpretation Comments POC-GLUCOSE METER 377 mg/dL 70-110 H TESTED AT [place] [address] ([facility]) (test code = [facility] 1538) [address] POCT-GLUCOSE [id number] 09:11:00 Test Item Value Reference Range Interpretation Comments POC-GLUCOSE METER 95 mg/dL 70-110 TESTED AT [place] [address] ([facility]) (test code = [facility] [address] 1538) POCT-GLUCOSE [id number] 06:53:00 Test Item Value Reference Range Interpretation Comments POC-GLUCOSE METER 288 mg/dL 70-110 H TESTED AT [place] [address] ([facility]) (test code = [facility] 1538) [address] COMPREHENSIVE METABOLIC [id number] 01:54:00 Test Item Value Reference Range Interpretation Comments TOTAL PROTEIN 6.1 gm/dL 6.0-8.3 Specimen sligh tly (BEAKER) (test [...] S NOT APPLICABLE FOR DIALYSIS PATIEN TS. [id number] 01:49:00 Test Item Value Reference Range Interpretation Comments ACTIVATED CLOTTING TIME 142 sec Refe rence Range: (BEAKER) (test code = 74-137 seconds, 441) Baseline/TESTED AT [address] [place] [address] B-TYPE NATRIURETIC FACTOR (BNP)2018-11-13 01:42:00 Test Item Value Reference Range Interpretation Comments B-TYPE NATRIURETIC PEPTIDE 1151 pg/mL 0-100 H (BEAKER) (test code = 700) URINALYSIS W/ [id number] 01:40:00 Test Item Value Reference Range Interpretation [...] = 516) SOURCE(BEAKER) (test code = 2795) [id number] 01:36:00 Test Item Value Reference Range Interpretation Comments MAGNESIUM (BEAKER) 2.0 mg/dL 1.6-2.6 Specimen slightly (test code = 627) hemolyzed [id number] 01:36:00 Test Item Value Reference Range Interpretation Comments PHOSPHORUS (BEAKER) 4.4 mg/dL 2.3-4.7 Specimen slightly (test code = 604) hemolyzed CBC W/PLT COUNT & AUTO [id number] 01:24:00 Test Item Value Reference Range Interpretation [...] PERCENT (BEAKER) (test code = 2801) CALCIUM, [id number] 01:16:00 Test Item Value Reference Range Interpretation Comments CALCIUM IONIZED (BEAKER) (test 1.10 mmol/L 1.12-1.27 L code = 698) PH, BLOOD (BEAKER) (test code = 7.32 1810) [id number] 23:34:00 Test Item Value Reference Range Interpretation Comments ACTIVATED CLOTTING TIME 164 sec Refe rence Range: (BEAKER) (test code = 74-137 seconds, 441) Baseline/TESTED AT [place] [id number] [facility] [place] [address] [id number] 21:52:00 Test Item Value Reference Range Interpretation Comments ACTIVATED CLOTTING TIME 191 sec Refe rence Range: (BEAKER) (test code = 74-137 seconds, 441) Baseline/TESTED AT [place] [id number] [facility] [place] [address] 0 POCT-GLUCOSE [id number] 21:33:00 Test Item Value Reference Range Interpretation Comments POC-GLUCOSE METER 294 mg/dL 70-110 H TESTED AT [place] [address] [facility] (test code = [facility] 1538) [address] C. DIFFICILE GDH [id number] 20:08:00 Test Item Value Reference Range Interpretation Comments CDT TOXIN (test code Negative Negative = [id number]) CDT GDH ANTIGEN Positive Negative A C. difficile present but (test code = toxin not detec elva. [id number]) Indicates colon ization with non-toxige alexis strain or level of tox in below detectable leve ls. No need for enteri c isolation. Sandoval atment is rarely needed ( only when strong clinical suspicion for Clostridium difficile infection) Testing performed by Cloutex Rapid Cassette Assay. For GDH, published sensitivity of the assay is 98.7% compared to cytotoxicity testing. For Toxin AB, published sensitivity is 87.8% and specificity 99.4% compared to cytotoxicity testing.Verification of kit performance was done by the [facility] Microbiology Lab prior to clinical use.[id number] 17:58:00 Test Item Value Reference Range Interpretation Comments ACTIVATED CLOTTING TIME 290 sec Refe rence Range: (BEAKER) (test code = 74-137 seconds, 441) Baseline/TESTED AT [place] [address] [id number] 16:57:00 Test Item Value Reference Range Interpretation Comments ACTIVATED CLOTTING TIME 263 sec Refe rence Range: (BEAKER) (test code = 74-137 seconds, 441) Baseline/TESTED AT [place] [address] [id number] 16:20:00 Test Item Value Reference Range Interpretation Comments ACTIVATED CLOTTING TIME 252 sec Refe rence Range: (BEAKER) (test code = 74-137 seconds, 441) Baseline/TESTED AT [place] [address] 0 PET, CARDIAC PERFUSION MULTIPLE STUDIES, REST AND [id number] 15:26:00 Reason for exam:->eval chest pain, ischemiaFINAL REPORT PROCEDURE: MYOCARDIAL PERFUSION PET IMAGING (Rest/Stress)CPT CODE: 48781 INDICATION: Evaluate extent of known CAD, chest [...] rest.Symptoms: Chest discomfort, nausea, fatigue (Treatment was olycoftuhswjb592gf IV).Perfusion: There is an absence of perfusionin [...] MDReport Verified Date/Time: 11/12/2018 15:26:40 Reading Location: [facility] 3rd Flr P327B Nuc Med Reading Room NM myocardial perfusion PET (rest and stress)2018-11-12 15:26:00Interface, External Ris In - 11/12/2018 3:28 PM CDTFINAL REPORT PROCEDURE: MYOCARDIAL PERFUSION PET IMAGING (Rest/Stress)CPT CODE: 79334 INDICATION: Evaluate extent of known CAD, chest [...] rest.Symptoms: Chest discomfort, nausea, fatigue (Treatment was ssqchjrqktoyo126sb IV).Perfusion: There is an absence of perfusion [...] MDReport Verified Date/Time: 11/12/2018 15:26:40 Reading Location: [address] Reading Room [facility] [id number] 10:22:00 Test Item Value Reference Range Interpretation Comments PARTIAL THROMBOPLASTIN TIME 90.3 seconds 22.5-36.0 H ([facility]) (test code = 760) HEMOGLOBIN [id number] 09:39:00 Test Item Value Reference Range Interpretation Comments HEMOGLOBIN A1C ([facility]) (test code = 12.0 % 4.3-6.1 H 368) POCT-GLUCOSE [id number] 08:37:00 Test Item Value Reference Range Interpretation Comments POC-GLUCOSE METER 281 mg/dL 70-110 H TESTED AT [facility] 6720 ([facility]) (test code = [place] 1538) [address] [id number] 05:54:00 Test Item Value Reference Range Interpretation Comments PARTIAL THROMBOPLASTIN TIME 135.4 seconds 22.5-36.0 H ([facility]) (test code = 760) CALCIUM, [id number] 05:31:00 Test Item Value Reference Range Interpretation Comments CALCIUM IONIZED ([facility]) (test 1.10 mmol/L 1.12-1.27 L code = 698) PH, BLOOD ([facility]) (test code = 7.39 1810) COMPREHENSIVE METABOLIC [id number] 04:56:00 Test Item Value Reference Range Interpretation Comments TOTAL PROTEIN 6.2 gm/dL 6.0-8.3 Specimen sligh tly ([facility]) (test code = hemoly zed [...] hemolyzed EGFR (BEAKER) (test 14 mL/min/1.73 ESTIMA ELAV GFR IS code = 1092) sq m NOT ACCURATE CREATININE CLEARANCE IN PREDICTING GLOMERULAR FILTRATION RATE . ESTIMATED GFR I S NOT APPLICABLE FOR DIALYSIS PATIEN TS. [id number] 04:52:00 Test Item Value Reference Range Interpretation Comments MAGNESIUM (BEAKER) 2.0 mg/dL 1.6-2.6 Specimen slightly (test code = 627) hemolyzed [id number] 04:52:00 Test Item Value Reference Range Interpretation Comments PHOSPHORUS (BEAKER) 3.5 mg/dL 2.3-4.7 Specimen slightly (test code = 604) hemolyzed LIPID [id number] 04:52:00 Test Item Value Reference Range Interpretation [...] Very High >=190CBC W/PLT COUNT & AUTO [id number] 04:33:00 Test Item Value Reference Range Interpretation [...] 0-1 PERCENT (BEAKER) (test code = 2801) [id number] 22:22:00 Test Item Value Reference Range Interpretation Comments PARTIAL THROMBOPLASTIN TIME 86.6 seconds 22.5-36.0 H (BEAKER) (test code = 760) POCT-GLUCOSE [id number] 17:14:00 Test Item Value Reference Range Interpretation Comments POC-GLUCOSE METER 158 mg/dL 70-110 H TESTED AT [facility] 6720 (BEAKER) (test code = JODY Gipson [facility] 1538) [address] Transthoracic 2D echo w/ doppler (cw/pw/color)2018-11-11 16:06:08Ejection FractionSLEH ECHO HEARTLAB MKCKESSON CPACSInterface, External Ris In - 11/11/2018 4:06 PM CDTTransthoracic Echocardiography Report (TTE) Demographics Patient Name HENRIQUE ARECHIGA Date of Study 11/11/2018 ESCOBDEO Gender Female Visit Number [id number] Race Room Number 6102 Number Date of 1940 Referring Peyton Choe Physician Age 78 year(s) Community Marketing Manager Sly Sims RDCS Dressing Room Porter Amber Kaplan RDCS Interpreting Garry Goodwin Physician Procedure Type of Study TTE procedure:2DECHO [...] CO: 4.03 l/min LVOT CI: 2.37 l[facility]min/m^[facility] 15:48:00 Test Item Value Reference Range Interpretation Comments PARTIAL THROMBOPLASTIN TIME 64.4 seconds 22.5-36.0 H ([facility]) (test code = 760) POCT-GLUCOSE [id number] 12:41:00 Test Item Value Reference Range Interpretation Comments POC-GLUCOSE METER 275 mg/dL 70-110 H TESTED AT [facility] 6720 ([facility]) (test code = JODY Gipson [facility] 1538) [address] RAD, CHEST, 1 VIEW, NON [id number] 09:33:00Reason for exam:->chest painShould this be performed at the bedside?->YesFINAL REPORT Comparison: 08/14/2018 TECHNIQUE: Single view of the chest FINDINGS: Trace bilateral pleural effusions. Lungs otherwise grossly clear. Cardiac silhouette is prominent. Aortic calcifications are seen. No acute skeletal abnormality. Signed: Terry Sauer Verified Date/Time: 11/11/2018 09:33:09 Reading Location: [address] Transitional Reading Room Electr onically signed by: TERRY SAUER M.D. on 11/11/2018 09:33 AMTROPONIN Heidi 2018-11-11 09:11:00 Test Item Value Reference Range Interpretation Comments TROPONIN I ([facility]) (test code = 0.38 ng/mL 0.00-0.03 397) [...] acidosis, acute neurological disease, and persistent tachyarrhythmia.POCT-GLUCOSE [id number] 08:57:00 Test Item Value Reference Range Interpretation Comments POC-GLUCOSE METER 321 mg/dL 70-110 H Notified R Colin MD/TESTED ([facility]) (test code = AT [facility] [address] [place] 1538) [facility] 7703 0 TROPONIN [id number] 08:29:00 Test Item Value Reference Range Interpretation [...] acute neurological disease, and persistent tachyarrhythmia.BASIC METABOLIC [id number] 08:26:00 Test Item Value Reference Range Interpretation [...] APPLICABLE FOR DIALYSIS PATIEN TS. Hepatic function [id number] 08:22:00 Test Item Value Reference Range Interpretation Comments Protein, Total (test code 7.3 6.0- 8.3 gm/dL Specimen slightly = 2885-2) hemolyzed Albumin (test code = 3.9 g/dL 3.5-5 Specime n slightly 13079-5) hemolyzed Total Bilirubin (test 0.5 mg/dL 0.2-1.2 [...] hemolyzed Lab Interpretation (test Normal code = 85280-2) [facility] 08:22:00 Test Item Value Reference Range Interpretation Comments MAGNESIUM (BEAKER) 2.2 mg/dL 1.6-2.6 Specimen slightly (test code = 627) hemolyzed HEPATIC FUNCTION [id number] 08:22:00 Test Item Value Reference Range Interpretation [...] = 700) CBC W/PLT COUNT & AUTO [id number] 07:04:00 Test Item Value Reference Range Interpretation [...] (BEAKER) (test code = 2801) TSH/T4 if [id number] 06:39:00 Test Item Value Reference Range Interpretation Comments TSH (test code = 60310-9) 1.17 0.35- 4.94 uIU/mL Lab Interpretation (test code = Normal 49423-9) [facility] T4 IF [id number] 06:39:00 Test Item Value Reference Range Interpretation Comments THYROID STIMULATING HORMONE 1.17 uIU/mL 0.35-4.94 ([facility]) (test code = 772) [id number] 05:38:00 Test Item Value Reference Range Interpretation Comments PROTIME [facility] (test code = 14.0 seconds 11.9-14.2 759) INR ([facility]) (test code = 370) 1.1 <=5.9 PARTIAL THROMBOPLASTIN TIME 37.2 seconds 22.5-36.0 H (AKER) (test code = 760) Effective 07/18/2018: PT Reference Range ChangeNew: 11.9-14.2 Previous: 11.7- 14.7RECOMMENDED COUMADIN/WARFARIN INR THERAPY RANGESSTANDARD DOSE: 2.0-3.0 Includes: PROPHYLAXIS for venous thrombosis, systemic embolization; TREATMENT for venous thrombosis and/or pulmonary embolus.HIGH RISK: Target INR is2.5-3.5 for patients wiht mechanical heart valves.POCT-GLUCOSE [id number] 12:11:00 Test Item Value Reference Range Interpretation Comments POC-GLUCOSE METER 111 mg/dL 70-110 H TESTED AT [facility] 6720 ([facility]) (test code = JODY Gipson [facility] 1538) [address] CBC W/PLT COUNT & AUTO [id number] 10:11:00 Test Item Value Reference Range Interpretation Comments WHITE BLOOD CELL COUNT 4.7 K/ L 3.5-10.5 ([facility]) (test code = 775) RED BLOOD CELL COUNT 3.14 M/ L 3.93-5.22 L ([facility]) (test code = 761) HEMOGLOBIN (AKER) 10.1 GM/DL 11.2-15.7 L (test code = 410) HEMATOCRIT ([facility]) 34.0 % 34.1-44.9 L (test code = [...] 0-1 GRANULOCYTES-RELATIVE PERCENT (BEAKER) (test code = 2804) POCT-GLUCOSE [id number] 07:46:00 Test Item Value Reference Range Interpretation Comments POC-GLUCOSE METER 79 mg/dL 70-110 TESTED AT [facility] 6720 (BEAKER) (test code = [place] [address] 1538) BASIC METABOLIC [id number] 06:22:00 Test Item Value Reference Range Interpretation [...] NOT APPLICABLE FOR DIALYSIS PATIEN TS. POCT-GLUCOSE [id number] 20:51:00 Test Item Value Reference Range Interpretation Comments POC-GLUCOSE METER 176 mg/dL 70-110 H TESTED AT [place] [address] ([facility]) (test code = [facility] 1538) [address] POCT-GLUCOSE [id number] 18:25:00 Test Item Value Reference Range Interpretation Comments POC-GLUCOSE METER 84 mg/dL 70-110 TESTED AT [place] [address] ([facility]) (test code = [facility] [address] 1538) POCT-GLUCOSE [id number] 12:54:00 Test Item Value Reference Range Interpretation Comments POC-GLUCOSE METER 111 mg/dL 70-110 H TESTED AT [place] [address] ([facility]) (test code = [facility] 1538) [address] POCT-GLUCOSE [id number] 08:25:00 Test Item Value Reference Range Interpretation Comments POC-GLUCOSE METER 105 mg/dL 70-110 TESTED AT [place] [address] ([facility]) (test code = [facility] 1538) [address] BASIC METABOLIC [id number] 06:26:00 Test Item Value Reference Range Interpretation [...] NOT APPLICABLE FOR DIALYSIS PATIEN TS. POCT-GLUCOSE [id number] 04:25:00 Test Item Value Reference Range Interpretation Comments POC-GLUCOSE METER 81 mg/dL 70-110 TESTED AT [place] [address] ([facility]) (test code = [facility] [address] 1538) POCT-GLUCOSE [id number] 21:58:00 Test Item Value Reference Range Interpretation Comments POC-GLUCOSE METER 164 mg/dL 70-110 H TESTED AT [place] [address] ([facility]) (test code = [facility] 1538) [address] POCT-GLUCOSE [id number] 18:38:00 Test Item Value Reference Range Interpretation Comments POC-GLUCOSE METER 98 mg/dL 70-110 TESTED AT [place] [address] ([facility]) (test code = [facility] [email or web address] [facility] [address] 1538) POCT-GLUCOSE [id number] 13:14:00 Test Item Value Reference Range Interpretation Comments POC-GLUCOSE METER 105 mg/dL 70-110 TESTED AT [place] [address] ([facility]) (test code = [facility] [email or web address] [facility] 1538) [address] POCT-GLUCOSE [id number] 08:12:00 Test Item Value Reference Range Interpretation Comments POC-GLUCOSE METER 115 mg/dL 70-110 H TESTED AT [place] [address] ([facility]) (test code = [facility] 1538) [address] BASIC METABOLIC [id number] 07:37:00 Test Item Value Reference Range Interpretation [...] NOT APPLICABLE FOR DIALYSIS PATIEN TS. POCT-GLUCOSE [id number] 07:22:00 Test Item Value Reference Range Interpretation Comments POC-GLUCOSE METER 128 mg/dL 70-110 H TESTED AT [place] [address] ([facility]) (test code = [facility] 1538) [address] POCT-GLUCOSE [id number] 04:05:00 Test Item Value Reference Range Interpretation Comments POC-GLUCOSE METER 95 mg/dL 70-110 TESTED AT [place] [address] ([facility]) (test code = [facility] [address] 1538) POCT-GLUCOSE [id number] 04:05:00 Test Item Value Reference Range Interpretation Comments POC-GLUCOSE METER 68 mg/dL 70-110 L TESTED AT [place] [address] ([facility]) (test code = [facility] [address] 1538) POCT-GLUCOSE [id number] 04:05:00 Test Item Value Reference Range Interpretation Comments POC-GLUCOSE METER 52 mg/dL 70-110 L TESTED AT [place] [address] ([facility]) (test code = [facility] [address] 1538) POCT-GLUCOSE [id number] 22:26:00 Test Item Value Reference Range Interpretation Comments POC-GLUCOSE METER 132 mg/dL 70-110 H TESTED AT [place] [address] ([facility]) (test code = [facility] 1538) [address] POCT-GLUCOSE [id number] 19:58:00 Test Item Value Reference Range Interpretation Comments POC-GLUCOSE METER 134 mg/dL 70-110 H TESTED AT [place] [address] ([facility]) (test code = [facility] Brandan [facility] 1538) [address] POCT-GLUCOSE [id number] 13:11:00 Test Item Value Reference Range Interpretation Comments POC-GLUCOSE METER 148 mg/dL 70-110 H TESTED AT [place] [address] ([facility]) (test code = [facility] 1538) [address] POCT-GLUCOSE [id number] 12:30:00 Test Item Value Reference Range Interpretation Comments POC-GLUCOSE METER 183 mg/dL 70-110 H TESTED AT [place] [address] ([facility]) (test code = [facility] 1538) [address] CBC W/PLT COUNT & AUTO [id number] 10:37:00 Test Item Value Reference Range Interpretation [...] PERCENT (BEAKER) (test code = 2801) POCT-GLUCOSE [id number] 08:09:00 Test Item Value Reference Range Interpretation Comments POC-GLUCOSE METER 99 mg/dL 70-110 TESTED AT [facility] 6720 (BEAKER) (test code = JOSEPHMARY Gipson [facility] [address] 1538) BASIC METABOLIC [id number] 05:41:00 Test Item Value Reference Range Interpretation [...] NOT APPLICABLE FOR DIALYSIS PATIEN TS. POCT-GLUCOSE [id number] 21:42:00 Test Item Value Reference Range Interpretation Comments POC-GLUCOSE METER 171 mg/dL 70-110 H TESTED AT [facility] 67 ([facility]) (test code = [facility] Brandan [facility] 1538) [address] POCT-GLUCOSE [id number] 18:03:00 Test Item Value Reference Range Interpretation Comments POC-GLUCOSE METER 123 mg/dL 70-110 H TESTED AT [place] [address] ([facility]) (test code = [facility] 1538) [address] POCT-GLUCOSE [id number] 12:52:00 Test Item Value Reference Range Interpretation Comments POC-GLUCOSE METER 167 mg/dL 70-110 H TESTED AT [place] [address] ([facility]) (test code = [facility] 1538) [address] POCT-GLUCOSE [id number] 09:05:00 Test Item Value Reference Range Interpretation Comments POC-GLUCOSE METER 128 mg/dL 70-110 H TESTED AT [place] [address] ([facility]) (test code = [facility] 1538) [address] CT, PELVIS, WO [id number] 08:42:00FINAL REPORT CT pelvis without contrast HISTORY: [...] 08/16/2018 08:42:53 Reading Location: [facility] Radiology Reading Room BASIC METABOLIC [id number] 05:58:00 Test Item Value Reference Range Interpretation [...] NOT APPLICABLE FOR DIALYSIS PATIEN TS. POCT-GLUCOSE [id number] 03:05:00 Test Item Value Reference Range Interpretation Comments POC-GLUCOSE METER 157 mg/dL 70-110 H TESTED AT [facility] 6720 (BEAKER) (test code = [place] 1538) [address] POCT-GLUCOSE [id number] 20:57:00 Test Item Value Reference Range Interpretation Comments POC-GLUCOSE METER 106 mg/dL 70-110 [facility] ([facility] (test code = [place] 1538) [address] POCT-GLUCOSE [id number] 18:13:00 Test Item Value Reference Range Interpretation Comments POC-GLUCOSE METER 237 mg/dL 70-110 H TESTED AT [facility] 6720 (BEAKER) (test code = JODY Gip[place] 1538) [address] POCT-GLUCOSE [id number] 13:47:00 Test Item Value Reference Range Interpretation Comments POC-GLUCOSE METER 172 mg/dL 70-110 H TESTED AT [place] [address] (BEAKER) (test code = JODY Gip[place] 1538) [address] POCT-GLUCOSE [id number] 08:50:00 Test Item Value Reference Range Interpretation Comments POC-GLUCOSE METER 155 mg/dL 70-110 H TESTED AT [place] [address] (BEAKER) (test code = JODY [place] 1538) [address] BASIC METABOLIC [id number] 06:36:00 Test Item Value Reference Range Interpretation [...] NOT APPLICABLE FOR DIALYSIS PATIEN TS. POCT-GLUCOSE [id number] 22:53:00 Test Item Value Reference Range Interpretation Comments POC-GLUCOSE METER 231 mg/dL 70-110 H TESTED AT [facility] 6720 (BEAKER) (test code = JODY [place]ip[place] 1538) [address] POCT-GLUCOSE [id number] 17:51:00 Test Item Value Reference Range Interpretation Comments POC-GLUCOSE METER 169 mg/dL 70-110 H TESTED AT [facility] 6720 (BEAKER) (test code = [place] 1538) [address] RESPIRATORY PANEL [id number] 15:45:00 Test Item Value Reference Range Interpretation [...] decisions. This sample was tested at the [facility] Molecular Diagnostics Laboratory using the [employer] FilmArray Respiratory Panel. It is FDA cleared and has been verified and approved by the [facility] Molecular Diagnostics Laboratory for clinical use on nasopharyngeal swab specimens.The performance of the FilmArrayRP has not been established in individuals who received influenza vaccine. Recent administration ofa nasal influenza vaccine may cause false positive results for Influenza A and/orInfluenza B.URINALYSIS W/ REFLEX URINE [id number] 12:32:00 Test Item Value Reference Range Interpretation [...] 14 /LPF 1578) SOURCE(BEAKER) (test code = 0318) POCT-GLUCOSE [id number] 12:29:00 Test Item Value Reference Range Interpretation Comments POC-GLUCOSE METER 222 mg/dL 70-110 H TESTED AT [facility] 6720 (BEAKER) (test code = [place] 1535) [address] CBC W/PLT COUNT & AUTO [id number] 10:12:00 Test Item Value Reference Range Interpretation [...] MDReport Verified Date/Time: 08/14/2018 09:50:21 Reading Location: [facility] Radiology Reading Room POCT-GLUCOSE [id number] 08:20:00 Test Item Value Reference Range Interpretation Comments POC-GLUCOSE METER 126 mg/dL 70-110 H TESTED AT [facility] 6720 (BEAKER) (test code = [place] 1538) [address] COMPREHENSIVE METABOLIC [id number] 07:13:00 Test Item Value Reference Range Interpretation [...] S NOT APPLICABLE FOR DIALYSIS PATIEN TS. [id number] 06:59:00 Test Item Value Reference Range Interpretation Comments PHOSPHORUS (BEAKER) (test code = 2.3 mg/dL 2.3-4.7 604) [id number] 06:59:00 Test Item Value Reference Range Interpretation Comments MAGNESIUM (BEAKER) (test code = 2.0 mg/dL 1.6-2.6 627) CALCIUM, [id number] 06:47:00 Test Item Value Reference Range Interpretation Comments CALCIUM IONIZED (BEAKER) (test 1.04 mmol/L 1.12-1.27 L code = 698) PH, BLOOD ([facility]) (test code = 7.38 1810) POCT-GLUCOSE [id number] 23:29:00 Test Item Value Reference Range Interpretation Comments POC-GLUCOSE METER 196 mg/dL 70-110 H TESTED AT [place] [address] ([facility]) (test code = [facility] 1538) [address] POCT-GLUCOSE [id number] 17:42:00 Test Item Value Reference Range Interpretation Comments POC-GLUCOSE METER 179 mg/dL 70-110 H TESTED AT [place] [address] ([facility]) (test code = [facility] 1538) [address]67 POCT-GLUCOSE [id number] 12:19:00 Test Item Value Reference Range Interpretation Comments POC-GLUCOSE METER 189 mg/dL 70-110 H TESTED AT [place] [address] ([facility]) (test code = [facility] 1538) 35793 POCT-GLUCOSE [id number] 08:34:00 Test Item Value Reference Range Interpretation Comments POC-GLUCOSE METER 119 mg/dL 70-110 H TESTED AT [place] [address] ([facility]) (test code = [facility] 1538) [address] COMPREHENSIVE METABOLIC [id number] 02:54:00 Test Item Value Reference Range Interpretation Comments TOTAL PROTEIN 5.8 gm/dL 6.0-8.3 L ([facility]) (test code = 770) ALBUMIN ([facility]) 3.2 g/dL 3.5-5.0 L (test code = 1145) ALKALINE PHOSPHATASE 65 U/L 40-150 ([facility]) (test code = 346) BILIRUBIN TOTAL 0.8 [...] S NOT APPLICABLE FOR DIALYSIS PATIEN TS. [id number] 02:48:00 Test Item Value Reference Range Interpretation Comments PHOSPHORUS (BEAKER) (test code = 2.2 mg/dL 2.3-4.7 L 604) [id number] 02:48:00 Test Item Value Reference Range Interpretation Comments MAGNESIUM (BEAKER) (test code = 1.5 mg/dL 1.6-2.6 L 627) CALCIUM, [id number] 02:32:00 Test Item Value Reference Range Interpretation Comments CALCIUM IONIZED (BEAKER) (test 0.93 mmol/L 1.12-1.27 L code = 698) PH, BLOOD (BEAKER) (test code = 7.53 1810) CBC W/PLT COUNT & AUTO [id number] 02:31:00 Test Item Value Reference Range Interpretation [...] PERCENT (BEAKER) (test code = 2801) POCT-GLUCOSE [id number] 02:17:00 Test Item Value Reference Range Interpretation Comments POC-GLUCOSE METER 97 mg/dL 70-110 TESTED AT [place] [address] ([facility]) (test code = JODY Gipson [facility] [address] 1538) POCT-GLUCOSE [id number] 21:04:00 Test Item Value Reference Range Interpretation Comments POC-GLUCOSE METER 147 mg/dL 70-110 H TESTED AT [place] [address] ([facility]) (test code = JODY Gipson [facility] 1538) [address] POCT-GLUCOSE [id number] 17:42:00 Test Item Value Reference Range Interpretation Comments POC-GLUCOSE METER 172 mg/dL 70-110 H TESTED AT [place] [address] ([facility]) (test code = JODY Gipson [facility] 1538) [address] POCT-GLUCOSE [id number] 12:05:00 Test Item Value Reference Range Interpretation Comments POC-GLUCOSE METER 124 mg/dL 70-110 H TESTED AT [place] [address] ([facility]) (test code = JODY Gipson [facility] 1538) [address] POCT-GLUCOSE [id number] 07:37:00 Test Item Value Reference Range Interpretation Comments POC-GLUCOSE METER 94 mg/dL 70-110 TESTED AT [place] [address] ([facility]) ([facility] = [facility] [address] 1538) RAD, CHEST, 1 VIEW, NON [id number] 04:50:00Reason for exam:->SOBShould this be performed at the bedside?->YesFINAL REPORT CLINICAL INDICATION: Shortness of breath Comparison: 08/11/2018 The examination is limited by lordotic positioning. The cardiomediastinal contours are stable. Central pulmonary vascular congestion and bilateral parenchymal opacities are partially improved, suggesting improving pulmonary edema. Small bilateral pleural effusions are present. There is no pneumothorax.A right IJ CVC has been removed. Signed: Wilson Valdez Verified Date/Time: 08/12/2018 04:50:01 Reading Location: [address] Reading Room POCT-GLUCOSE METER 2018-08-12 04:39:00 Test Item Value Reference Range Interpretation Comments POC-GLUCOSE METER 107 mg/dL 70-110 TESTED AT [place] [address] (BEAKER) (test code = JODY [place] 1538) [address] COMPREHENSIVE METABOLIC [id number] 04:16:00 Test Item Value Reference Range Interpretation [...] S NOT APPLICABLE FOR DIALYSIS PATIEN TS. [id number] 04:11:00 Test Item Value Reference Range Interpretation Comments PHOSPHORUS (BEAKER) (test code = 2.9 mg/dL 2.3-4.7 604) [id number] 04:11:00 Test Item Value Reference Range Interpretation Comments MAGNESIUM (BEAKER) (test code = 1.9 mg/dL 1.6-2.6 627) CBC W/PLT COUNT & AUTO [id number] 03:57:00 Test Item Value Reference Range Interpretation [...] PERCENT (BEAKER) (test code = 2801) CALCIUM, [id number] 03:25:00 Test Item Value Reference Range Interpretation Comments CALCIUM IONIZED (BEAKER) (test 1.10 mmol/L 1.12-1.27 L code = 698) PH, BLOOD (BEAKER) (test code = 7.43 1810) POCT-GLUCOSE [id number] 00:03:00 Test Item Value Reference Range Interpretation Comments POC-GLUCOSE METER 122 mg/dL 70-110 H TESTED AT [place] [address] [facility] (test code = [facility] 1538) [address] POCT-GLUCOSE [id number] 21:32:00 Test Item Value Reference Range Interpretation Comments POC-GLUCOSE METER 104 mg/dL 70-110 TESTED AT [place] [address] ([facility]) (test code = [facility] 1538) [address] POCT-GLUCOSE [id number] 17:51:00 Test Item Value Reference Range Interpretation Comments POC-GLUCOSE METER 151 mg/dL 70-110 H TESTED AT [place] [address] [facility] (test code = [facility] 1538) [address] BASIC METABOLIC [id number] 16:24:00 Test Item Value Reference Range Interpretation [...] S NOT APPLICABLE FOR DIALYSIS PATIEN TS. [id number] 16:22:00 Test Item Value Reference Range Interpretation Comments MAGNESIUM (BEAKER) 1.8 mg/dL 1.6-2.6 Specimen slightly (test code = 627) hemolyzed POCT-GLUCOSE [id number] 11:45:00 Test Item Value Reference Range Interpretation Comments POC-GLUCOSE METER 141 mg/dL 70-110 H TESTED AT [facility] 6720 (BEAKER) (test code = [facility] 1538) [address] POCT-GLUCOSE [id number] 07:51:00 Test Item Value Reference Range Interpretation Comments POC-GLUCOSE METER 112 mg/dL 70-110 H TESTED AT [facility] 6720 (BEAKER) (test code = [facility] 1538) [address] BASIC METABOLIC [id number] 05:18:00 Test Item Value Reference Range Interpretation [...] S NOT APPLICABLE FOR DIALYSIS PATIEN TS. [id number] 05:12:00 Test Item Value Reference Range Interpretation Comments MAGNESIUM (BEAKER) 2.0 mg/dL 1.6-2.6 Specimen moderately (test code = 627) hemolyzed CBC W/PLT COUNT & AUTO [id number] 04:19:00 Test Item Value Reference Range Interpretation [...] = 2801) RAD, CHEST, 1 VIEW, NON [id number] 03:48:00Reason for exam:->SOBShould this be performed at the bedside?->YesFINAL REPORT RAD, CHEST, 1 VIEW, NON DEPT INDICATION: SOB COMPARISON: Prior day's exam FINDINGS: Portable frontal view of the chest. IMPRESSION: Support Lines: Stable. Lungs and pleura: Unchanged airspace and pleural opacities. No pneumothorax.Heart and mediastinum: Stable contours. Additional findings: None. Signed: Socorro Méndez Verified Date/Time: 08/11/2018 03:48:09 -GLUCOSE [id number] 23:26:00 Test Item Value Reference Range Interpretation Comments POC-GLUCOSE METER 101 mg/dL 70-110 TESTED AT [facility] 67 [facility] (test code = [facility] 1538) [address] POCT-GLUCOSE [id number] 18:11:00 Test Item Value Reference Range Interpretation Comments POC-GLUCOSE METER 171 mg/dL 70-110 H TESTED AT [place] [address] ([facility] (test code = [facility] 1538) [address] BASIC METABOLIC [id number] 16:14:00 Test Item Value Reference Range Interpretation [...] S NOT APPLICABLE FOR DIALYSIS PATIEN TS. [id number] 16:07:00 Test Item Value Reference Range Interpretation Comments MAGNESIUM (BEAKER) (test code = 2.0 mg/dL 1.6-2.6 627) LACTIC ACID, [id number] 15:23:00 Test Item Value Reference Range Interpretation Comments LACTATE BLOOD ARTERIAL (2) 0.9 mmol/L 0.5-2.2 (BEAKER) (test code = 2874) RAD, CHEST, 1 VIEW, NON [id number] 15:07:00Reason for exam:- >hypoxemiaShould this be performed [...] MDReport Verified Date/Time: 08/10/2018 15:07:53 Reading Location: [address] Consult Reading Room BLOOD GAS, [id number] 14:53:00 Test Item Value Reference Range Interpretation [...] (test code = 1819) 44.0 % POCT-GLUCOSE [id number] 12:20:00 Test Item Value Reference Range Interpretation Comments POC-GLUCOSE METER 208 mg/dL 70-110 H TESTED AT [facility] 6720 (BEAKER) (test code = JODY Gipson SHIREEN [place] 1538) [address] CBC W/PLT COUNT & AUTO [id number] 08:56:00 Test Item Value Reference Range Interpretation [...] MDReport Verified Date/Time: 08/10/2018 08:03:28 Reading Location: [facility] Radiology Reading Room POCT- GLUCOSE [id number] 07:51:00 Test Item Value Reference Range Interpretation Comments POC-GLUCOSE METER 129 mg/dL 70-110 H TESTED AT [place] [address] ([facility] (test code = [facility] 1538) [address] POCT-GLUCOSE [id number] 06:38:00 Test Item Value Reference Range Interpretation Comments POC-GLUCOSE METER 193 mg/dL 70-110 H TESTED AT [place] [address] ([facility] (test code = [facility] 1538) [address] POCT-GLUCOSE [id number] 05:48:00 Test Item Value Reference Range Interpretation Comments POC-GLUCOSE METER 67 mg/dL 70-110 L TESTED AT [place] [address] ([facility] (test code = [facility] [address] 1538) BASIC METABOLIC [id number] 05:07:00 Test Item Value Reference Range Interpretation [...] hemolyzed GLUCOSE RANDOM 66 mg/dL 70-105 L ([facility]) (test code = 652) CALCIUM (BEAKER) 9.1 mg/dL 8.4-10.2 (test code = 697) EGFR ([facility] (test 15 mL/min/1.73 ESTIMA ELVA GFR IS code = 1092) sq m NOT ACCURATE CREATININE CLEARANCE IN PREDICTING GLOMERULAR FILTRATION RATE . ESTIMATED GFR I S NOT APPLICABLE FOR DIALYSIS PATIEN TS. [id number] 05:06:00 Test Item Value Reference Range Interpretation Comments MAGNESIUM (BEAKER) 2.0 mg/dL 1.6-2.6 Specimen slightly (test code = 627) hemolyzed POCT-GLUCOSE [id number] 20:02:00 Test Item Value Reference Range Interpretation Comments POC-GLUCOSE METER 95 mg/dL 70-110 TESTED AT [place] [address] ([facility]) (test code = [facility] [address] 1538) POCT-GLUCOSE [id number] 17:35:00 Test Item Value Reference Range Interpretation Comments POC-GLUCOSE METER 144 mg/dL 70-110 H TESTED AT [place] [address] ([facility]) (test code = [facility] 1538) [address] POCT-GLUCOSE [id number] 13:42:00 Test Item Value Reference Range Interpretation Comments POC-GLUCOSE METER 180 mg/dL 70-110 H TESTED AT [place] [address] ([facility]) (test code = [facility] 1538) [address] POCT-GLUCOSE [id number] 07:56:00 Test Item Value Reference Range Interpretation Comments POC-GLUCOSE METER 206 mg/dL 70-110 H TESTED AT [place] [address] ([facility]) (test code = [facility] 1538) [address] CBC W/PLT COUNT & AUTO [id number] 06:25:00 Test Item Value Reference Range Interpretation Comments WHITE BLOOD CELL COUNT (AKER) 13.6 K/ L 3.5-10.5 H (test code = 775) RED BLOOD CELL COUNT ([facility]) 2.66 M/ L 3.93-5.22 L (test code = 761) HEMOGLOBIN ([facility]) (test code = 8.2 GM/DL 11.2-15.7 L 410) HEMATOCRIT (BEAKER) (test code = 25.5 % 34.1-44.9 L [...] (BEAKER) (test code = 2801) BASIC METABOLIC [id number] 06:22:00 Test Item Value Reference Range Interpretation [...] PATIEN TS. RAD, CHEST, 1 VIEW, NON [id number] 05:59:00Reason for exam:->SOBShould this be performed at [...] Socorro Méndez Verified Date/Time: 08/09/2018 05:59:24 POCT-GLUCOSE [id number] 22:05:00 Test Item Value Reference Range Interpretation Comments POC-GLUCOSE METER 254 mg/dL 70-110 H TESTED AT [facility] 6720 ([facility]) (test code = JODY [place] 1538) [address] POCT-GLUCOSE [id number] 18:33:00 Test Item Value Reference Range Interpretation Comments POC-GLUCOSE METER 271 mg/dL 70-110 H TESTED AT [facility] 6720 (BEAKER) (test code = JODY [place] 1538) [address] RAD, CHEST, 1 VIEW, NON [id number] 15:44:00Reason for exam:->IABP placementShould this be performed [...] Tracey Verified Date/Time: 08/08/2018 15:44:27 Reading Location: [facility] Reading Room RAD, CHEST, 1 VIEW, NON [id number] 13:42:00Reason for exam:->IABP positionShould this be performed [...] Tracey Verified Date/Time: 08/08/2018 13:42:06 Reading Location: [facility] [employer] Reading Room POCT-GLUCOSE [id number] 13:28:00 Test Item Value Reference Range Interpretation Comments POC-GLUCOSE METER 294 mg/dL 70-110 H TESTED AT [facility] 6720 ([facility]) (test code = JODY Gipson [facility] 1538) [address] RAD, CHEST, 1 VIEW, NON [id number] 08:20:00Reason for exam:->SOBShould this be performed at [...] Sauerort Verified Date/Time: 08/08/2018 08:20:51 Reading Location: [facility] Radiology Reading Room POCT-GLUCOSE [id number] 07:57:00 Test Item Value Reference Range Interpretation Comments POC-GLUCOSE METER 286 mg/dL 70-110 H TESTED AT [place] [address] ([facility]) (test code = JODY Gipson [facility] 1538) [address] CBC W/PLT COUNT & AUTO [id number] 05:11:00 Test Item Value Reference Range Interpretation Comments WHITE BLOOD CELL COUNT (AKER) 11.2 K/ L 3.5-10.5 H (test code = 775) RED BLOOD CELL COUNT (AKER) 2.71 M/ L 3.93-5.22 L (test code = 761) HEMOGLOBIN (BEAKER) (test code = 8.3 GM/DL 11.2-15.7 L 410) H[facility]OCRIT [facility] (test code = 26.1 % 34.1-44.9 L 411) MEAN CORPUSCULAR VOLUME (AKER) 96.3 fL 79.4-94.8 H (test code = [...] 0-1 H PERCENT (BEAKER) (test code = 2807) [id number] 04:43:00 Test Item Value Reference Range Interpretation Comments MAGNESIUM (BEAKER) (test code = 2.3 mg/dL 1.6-2.6 627) BASIC METABOLIC [id number] 04:43:00 Test Item Value Reference Range Interpretation [...] NOT APPLICABLE FOR DIALYSIS PATIEN TS. POCT-GLUCOSE [id number] 22:27:00 Test Item Value Reference Range Interpretation Comments POC-GLUCOSE METER 279 mg/dL 70-110 H TESTED AT [facility] 6720 (BEAKER) (test code = JODY [place] 1538) [address] BASIC METABOLIC [id number] 22:17:00 Test Item Value Reference Range Interpretation [...] S NOT APPLICABLE FOR DIALYSIS PATIEN TS. [id number] 22:13:00 Test Item Value Reference Range Interpretation Comments MAGNESIUM (BEAKER) (test code = 2.1 mg/dL 1.6-2.6 627) [id number] 19:37:00 Test Item Value Reference Range Interpretation Comments ACTIVATED CLOTTING TIME 268 sec TEST ED AT [place] [address] ([facility]) (test code = JODY Gipson [place] 441) [address] [id number] 18:30:00 Test Item Value Reference Range Interpretation Comments ACTIVATED CLOTTING TIME 257 sec TEST ED AT [place] [address] ([facility]) (test code = JODY Gipson [place] 441) [address] [id number] 17:58:00 Test Item Value Reference Range Interpretation Comments ACTIVATED CLOTTING TIME 219 sec TEST ED AT [place] [address] ([facility]) (test code = JODY Gipson [place] 441) [address] [id number] 17:58:00 Test Item Value Reference Range Interpretation Comments ACTIVATED CLOTTING TIME > sec [facility] ([facility]) (test code = RANGET ESTED AT [place] [address] 441) [facility] [address] POCT-GLUCOSE [id number] 12:23:00 Test Item Value Reference Range Interpretation Comments POC-GLUCOSE METER 169 mg/dL 70-110 H TESTED AT [place] [address] ([facility]) (test code = [facility] Brandan [facility] 1538) [address] RAD, CHEST, 1 VIEW, NON [id number] 09:10:00Reason for exam:->SOBShould this be performed at the bedside?->YesFINAL REPORT Chest dated 08/07/2018 COMPARISON: 08/06/2018 Clinical Information: SOB Comment: Heart is enlarged. Pulmonary vasculature is indistinct. Interstitial disease is seen bilaterally suggestive of vascular congestion or pulmonary edema. There is small bilateral pleural effusion. IMPRESSION: No interval change. Signed: Yuan Arangoepkarlie Verified Date/Time: 08/07/2018 09:10:23 Reading Location: [facility] Radiology Reading Room POCT-GLUCOSE [id number] 07:49:00 Test Item Value Reference Range Interpretation Comments POC-GLUCOSE METER 165 mg/dL 70-110 H TESTED AT [place] [address] ([facility]) (test code = [facility] Brandan [facility] 1538) [address] COMPREHENSIVE METABOLIC [id number] 06:00:00 Test Item Value Reference Range Interpretation [...] S NOT APPLICABLE FOR DIALYSIS PATIEN TS. [id number] 05:56:00 Test Item Value Reference Range Interpretation Comments PHOSPHORUS (BEAKER) (test code = 2.9 mg/dL 2.3-4.7 604) [id number] 05:56:00 Test Item Value Reference Range Interpretation Comments MAGNESIUM (BEAKER) (test code = 2.0 mg/dL 1.6-2.6 627) CBC W/PLT COUNT & AUTO [id number] 05:42:00 Test Item Value Reference Range Interpretation [...] PERCENT (BEAKER) (test code = 2801) CALCIUM, [id number] 05:32:00 Test Item Value Reference Range Interpretation Comments CALCIUM IONIZED (BEAKER) (test 1.12 mmol/L 1.12-1.27 code = 698) PH, BLOOD ([facility] (test code = 7.36 1810) POCT-GLUCOSE [id number] 21:35:00 Test Item Value Reference Range Interpretation Comments POC-GLUCOSE METER 143 mg/dL 70-110 H TESTED AT [place] [address] ([facility] (test code = [facility] 1538) [address] POCT-GLUCOSE [id number] 17:31:00 Test Item Value Reference Range Interpretation Comments POC-GLUCOSE METER 105 mg/dL 70-110 TESTED AT [place] [address] ([facility]) (test code = [facility] 1538) [address] POCT-GLUCOSE [id number] 12:46:00 Test Item Value Reference Range Interpretation Comments POC-GLUCOSE METER 159 mg/dL 70-110 H TESTED AT [place] [address] ([facility]) (test code = [facility] 1538) [address] POCT-GLUCOSE [id number] 07:40:00 Test Item Value Reference Range Interpretation Comments POC-GLUCOSE METER 120 mg/dL 70-110 H TESTED AT [place] [address] ([facility]) (test code = [facility] 1538) 30[address] [id number] 04:52:00 Test Item Value Reference Range Interpretation Comments MAGNESIUM (BEAKER) (test code = 1.8 mg/dL 1.6-2.6 627) BASIC METABOLIC [id number] 04:52:00 Test Item Value Reference Range Interpretation [...] PATIEN TS. RAD, CHEST, 1 VIEW, NON [id number] 04:45:00Reason for exam:->SOBShould this be performed at [...] MDReport Verified Date/Time: 08/06/2018 04:45:08 Reading Location: [address] Reading Room APTT 2018-08-06 04:31:00 Test Item Value Reference Range Interpretation Comments PARTIAL THROMBOPLASTIN TIME 45.7 seconds 22.5-36.0 H (BEAKER) (test code = 760) 4 hours after the start of continuous infusion and 4 hours after any rate change CBC W/PLT COUNT & AUTO [id number] 04:23:00 Test Item Value Reference Range Interpretation [...] % 0-1 PERCENT (BEAKER) (test code = 2802) POCT-GLUCOSE [id number] 21:47:00 Test Item Value Reference Range Interpretation Comments POC-GLUCOSE METER 184 mg/dL 70-110 H TESTED AT [facility] 6720 (BEAKER) (test code = JOSEPHMARY [place] 1538) [address] POCT-GLUCOSE [id number] 17:15:00 Test Item Value Reference Range Interpretation Comments POC-GLUCOSE METER 120 mg/dL 70-110 H TESTED AT [facility] 6720 (BEAKER) (test code = JODY Gipson [place] 1538) [address] POCT-GLUCOSE [id number] 12:00:00 Test Item Value Reference Range Interpretation Comments POC-GLUCOSE METER 226 mg/dL 70-110 H TESTED AT [facility] 6720 (BEAKER) (test code = JODY Gipson [place] 1538) [address]648 POCT-GLUCOSE [id number] 07:45:00 Test Item Value Reference Range Interpretation Comments POC-GLUCOSE METER 192 mg/dL 70-110 H TESTED AT [facility] 6720 (BEAKER) (test code = JODY Gipson [facility] 1538) [address]47 RAD, CHEST, 1 VIEW, NON [id number] 07:45:00Reason for exam:->SOBShould this be performed at [...] MDReport Verified Date/Time: 08/05/2018 07:45:53 Reading Location: [address] Neuro Reading Room [id number] 06:25:00 Test Item Value Reference Range Interpretation Comments MAGNESIUM (BEAKER) (test code = 1.8 mg/dL 1.6-2.6 627) BASIC METABOLIC [id number] 06:25:00 Test Item Value Reference Range Interpretation [...] PATIEN TS. CBC W/PLT COUNT & AUTO [id number] 05:59:00 Test Item Value Reference Range Interpretation [...] PERCENT (AKER) (test code = 2801) POCT-GLUCOSE [id number] 22:07:00 Test Item Value Reference Range Interpretation Comments POC-GLUCOSE METER 183 mg/dL 70-110 H TESTED AT [place] [address] ([facility]) (test code = [facility] 1538) [address] POCT-GLUCOSE [id number] 18:23:00 Test Item Value Reference Range Interpretation Comments POC-GLUCOSE METER 174 mg/dL 70-110 H TESTED AT [place] [address] ([facility]) (test code = [facility] 1538) [address] C. DIFFICILE GDH [id number] 15:36:00 Test Item Value Reference Range Interpretation Comments CDT TOXIN (test code Negative Negative = [id number]) CDT GDH ANTIGEN Positive Negative A C. difficile present but (test code = toxin not detec elva. [id number]) Indicates colon ization with non-toxige alexis strain [...] of kit performance was done by the [facility] Microbiology Lab prior to clinical use.URINALYSIS W/ REFLEX URINE [id number] 15:18:00 Test Item Value Reference Range Interpretation [...] 514) SOURCE(BEAKER) (test code = 2795) POCT-GLUCOSE [id number] 13:03:00 Test Item Value Reference Range Interpretation Comments POC-GLUCOSE METER 213 mg/dL 70-110 H TESTED AT [place] [address] (BEAKER) (test code = JODY [place] 1538) [address] OCCULT BLOOD, [id number] 11:58:00 Test Item Value Reference Range Interpretation Comments FECAL OCCULT BLOOD (BEAKER) (test Positive Negative A code = 618) POCT-GLUCOSE [id number] 08:00:00 Test Item Value Reference Range Interpretation Comments POC-GLUCOSE METER 127 mg/dL 70-110 H TESTED AT [facility] 6720 (BEAKER) (test code = JODY [place] 1538) [address] TROPONIN [id number] 07:07:00 Test Item Value Reference Range Interpretation [...] and persistent tachyarrhythmia.RAD, CHEST, 1 VIEW, NON [id number] 07:00:00Reason for exam:->SOBShould this be performed at [...] MDReport Verified Date/Time: 08/04/2018 07:00:06 Reading Location: [address] Neuro Reading Room COMPREHENSIVE METABOLIC [id number] 06:56:00 Test Item Value Reference Range Interpretation [...] S NOT APPLICABLE FOR DIALYSIS PATIEN TS. [id number] 06:55:00 Test Item Value Reference Range Interpretation Comments PHOSPHORUS (BEAKER) (test code = 2.8 mg/dL 2.3-4.7 604) [id number] 06:55:00 Test Item Value Reference Range Interpretation Comments MAGNESIUM (BEAKER) (test code = 1.9 mg/dL 1.6-2.6 627) CBC W/PLT COUNT & AUTO [id number] 06:12:00 Test Item Value Reference Range Interpretation [...] PERCENT (BEAKER) (test code = 2801) CALCIUM, [id number] 05:58:00 Test Item Value Reference Range Interpretation Comments CALCIUM IONIZED (BEAKER) (test 1.11 mmol/L 1.12-1.27 L code = 698) PH, BLOOD (BEAKER) (test code = 7.38 1810) POCT-GLUCOSE [id number] 22:08:00 Test Item Value Reference Range Interpretation Comments POC-GLUCOSE METER 163 mg/dL 70-110 H TESTED AT [facility] 6720 (BEAKER) (test code = JODY [place] 1538) [address] POCT-GLUCOSE [id number] 18:05:00 Test Item Value Reference Range Interpretation Comments POC-GLUCOSE METER 215 mg/dL 70-110 H TESTED AT [facility] 6720 (BEAKER) (test code = JODY [place]ipson [place] 1538) [address] POCT-GLUCOSE [id number] 12:33:00 Test Item Value Reference Range Interpretation Comments POC-GLUCOSE METER 287 mg/dL 70-110 H TESTED AT [facility] 6720 (CRISTY) (test code = JODY Gipson [facility] 1538) [address] TROPONIN [id number] 10:28:00 Test Item Value Reference Range Interpretation [...] = 380) RAD, CHEST, 1 VIEW, NON [id number] 08:51:00Reason for exam:->SOBShould this be performed at [...] no significant change since 08/02/2018. Signed: Rob Navarrokarlie Verified Date/Time: 08/03/2018 08:51:22 Reading Location: [facility] Reading Room [id number] 03:08:00 Test Item Value Reference Range Interpretation Comments FERRITIN (BEAKER) (test code = 361) 207 ng/mL 5-275 VITAMIN B12 AND [id number] 03:08:00 Test Item Value Reference Range Interpretation Comments VITAMIN B12 (BEAKER) (test code = 212 pg/mL 213-816 L 774) FOLATE (BEAKER) (test code = 362) 15.1 ng/mL >=7.0 COMPREHENSIVE METABOLIC [id number] 02:38:00 Test Item Value Reference Range Interpretation [...] S NOT APPLICABLE FOR DIALYSIS PATIEN TS. [id number] 02:34:00 Test Item Value Reference Range Interpretation Comments PHOSPHORUS (BEAKER) (test code = 4.7 mg/dL 2.3-4.7 604) [id number] 02:34:00 Test Item Value Reference Range Interpretation [...] 20-55 L (test code = 2590) CALCIUM, [id number] 02:26:00 Test Item Value Reference Range Interpretation Comments CALCIUM IONIZED (BEAKER) (test 1.12 mmol/L 1.12-1.27 code = 698) PH, BLOOD (BEAKER) (test code = 7.27 1810) CBC W/PLT COUNT & AUTO [id number] 02:20:00 Test Item Value Reference Range Interpretation [...] PERCENT (BEAKER) (test code = 2801) RETICULOCYTE [id number] 02:16:00 Test Item Value Reference Range Interpretation Comments RETICULOCYTE COUNT PCT (BEAKER) (test 2.7 % 0.5-1.7 H code = 575) POCT-GLUCOSE [id number] 01:12:00 Test Item Value Reference Range Interpretation Comments POC-GLUCOSE METER 239 mg/dL 70-110 H TESTED AT [facility] 67[facility] (test code = JODY [place] 1538) [address] POCT-GLUCOSE [id number] 20:38:00 Test Item Value Reference Range Interpretation Comments POC-GLUCOSE METER 207 mg/dL 70-110 H TESTED AT [facility] (test code = [place] 1538) [address] POCT-GLUCOSE [id number] 16:39:00 Test Item Value Reference Range Interpretation Comments POC-GLUCOSE METER 216 mg/dL 70-110 H TESTED AT [place] [address] ([facility]) (test code = [place]ODY [place] 1538) [address] [id number] 12:20:00 Test Item Value Reference Range Interpretation Comments PARTIAL THROMBOPLASTIN TIME 36.6 seconds 22.5-36.0 H ([facility]) (test code = 760) 4 hours after the start of continuous infusion and 4 hours after any rate change POCT-GLUCOSE [id number] 12:03:00 Test Item Value Reference Range Interpretation Comments POC-GLUCOSE METER 206 mg/dL 70-110 H TESTED AT [place] [address] ([facility]) (test code = JODY Gipson [facility] 1538) [address] POCT-GLUCOSE [id number] 12:03:00 Test Item Value Reference Range Interpretation Comments POC-GLUCOSE METER 193 mg/dL 70-110 H TESTED AT [place] [address] ([facility]) (test code = JODY Gipson [facility] 1538) [address] POCT-GLUCOSE [id number] 12:02:00 Test Item Value Reference Range Interpretation Comments POC-GLUCOSE METER 234 mg/dL 70-110 H TESTED AT [place] [address] ([facility]) (test code = JODY Gipson [facility] 1538) [address] POCT-GLUCOSE [id number] 12:02:00 Test Item Value Reference Range Interpretation Comments POC-GLUCOSE METER 211 mg/dL 70-110 H TESTED AT [place] [address] ([facility]) (test code = JODY Gipson [facility] 1538) [address] U/S, RENAL, [id number] 08:45:00Reason for exam:->CKDFINAL REPORT TECHNIQUE: Grayscale ultrasound [...] MDReport Verified Date/Time: 08/02/2018 08:45:50 Reading Location: [address] Radiology Reading Room Electronically signedby: ROB NAVARRO MD on 08/02/2018 08:45 AMPOCT-GLUCOSE [id number] 08:25:00 Test Item Value Reference Range Interpretation Comments POC-GLUCOSE METER 237 mg/dL 70-110 H TESTED AT [place] [address] ([facility]) (test code = [facility] 1538) [address] [id number] 08:19:00 Test Item Value Reference Range Interpretation Comments PARTIAL THROMBOPLASTIN TIME 38.2 seconds 22.5-36.0 H ([facility]) (test code = 760) 4 hours after the start of continuous infusion and 4 hours after any rate change POCT-GLUCOSE [id number] 07:14:00 Test Item Value Reference Range Interpretation Comments POC-GLUCOSE METER 246 mg/dL 70-110 H TESTED AT [place] [address] ([facility]) (test code = [facility] 1538) [address] COMPREHENSIVE METABOLIC [id number] 04:58:00 Test Item Value Reference Range Interpretation Comments TOTAL PROTEIN 5.5 gm/dL 6.0-8.3 L Specimen sligh tly ([facility]) (test code = hemoly zed 770) ALBUMIN ([facility]) 3.1 g/dL 3.5-5.0 L Specimen sl ightly (test code = 1145) hemolyzed ALKALINE PHOSPHATASE 54 U/L 40-150 ([facility]) (test code = 346) BILIRUBIN TOTAL 0.7 [...] S NOT APPLICABLE FOR DIALYSIS PATIEN TS. [id number] 04:52:00 Test Item Value Reference Range Interpretation Comments PARTIAL THROMBOPLASTIN TIME 37.5 seconds 22.5-36.0 H (BEAKER) (test code = 760) 4 hours after the start of continuous infusion and 4 hours after any rate change RAD, CHEST, 1 VIEW, NON [id number] 04:44:00Reason for exam:->impella positionShould this be performed [...] 0-100 H (BEAKER) (test code = 700) [id number] 04:40:00 Test Item Value Reference Range Interpretation Comments MAGNESIUM (BEAKER) 2.0 mg/dL 1.6-2.6 Specimen slightly (test code = 627) hemolyzed [id number] 04:40:00 Test Item Value Reference Range Interpretation Comments PHOSPHORUS (BEAKER) 4.7 mg/dL 2.3-4.7 Specimen slightly (test code = 604) hemolyzed URIC [id number] 04:40:00 Test Item Value Reference Range Interpretation Comments URIC ACID (BEAKER) 9.1 mg/dL 2.6-7.2 H Specimen slightly (test code = 773) hemolyzed LACTIC ACID, [id number] 04:31:00 Test Item Value Reference Range Interpretation Comments LACTATE BLOOD 0.9 mmol/L 0.5-2.2 Specimen sligh tly ARTERIAL (2) (BEAKER) hemoly zed (test code = 2874) BLOOD GAS, [id number] 04:25:00 Test Item Value Reference Range Interpretation [...] (test code = 1819) 36.0 % GLUCOSE-STAT [id number] 04:25:00 Test Item Value Reference Range Interpretation Comments GLUCOSE RANDOM (BEAKER) (test code 272 mg/dL 70-110 H = 652) HGB/HCT (H&H) - STAT [id number] 04:25:00 Test Item Value Reference Range Interpretation Comments HEMOGLOBIN (BEAKER) (test code = 10.9 g/dL 12.0-15.0 L 410) HEMATOCRIT (BEAKER) (test code = 32.0 % 36.0-45.0 L 411) CBC W/PLT COUNT & AUTO [id number] 04:24:00 Test Item Value Reference Range Interpretation [...] PERCENT (BEAKER) (test code = 2801) CALCIUM, [id number] 04:22:00 Test Item Value Reference Range Interpretation Comments CALCIUM IONIZED (BEAKER) (test 1.20 mmol/L 1.12-1.27 code = 698) PH, BLOOD (BEAKER) (test code = 7.31 1810) SODIUM NA-STAT [id number] 04:21:00 Test Item Value Reference Range Interpretation Comments SODIUM (BEAKER) (test code = 381) 136 meq/L 135-148 POTASSIUM-STAT [id number] 04:21:00 Test Item Value Reference Range Interpretation Comments POTASSIUM (BEAKER) (test code = 4.6 meq/L 3.6-5.5 379) LACTIC ACID, [id number] 00:13:00 Test Item Value Reference Range Interpretation Comments LACTATE BLOOD ARTERIAL (2) 0.7 mmol/L 0.5-2.2 (BEAKER) (test code = 2874) SODIUM NA-STAT [id number] 23:59:00 Test Item Value Reference Range Interpretation Comments SODIUM (BEAKER) (test code = 381) 136 meq/L 135-148 POTASSIUM-STAT [id number] 23:59:00 Test Item Value Reference Range Interpretation Comments POTASSIUM (BEAKER) (test code = 4.8 meq/L 3.6-5.5 379) BLOOD GAS, [id number] 23:59:00 Test Item Value Reference Range Interpretation [...] (test code = 1819) 36.0 % GLUCOSE-STAT [id number] 23:59:00 Test Item Value Reference Range Interpretation Comments GLUCOSE RANDOM (BEAKER) (test code 275 mg/dL 70-110 H = 652) HGB/HCT (H&H) - STAT [id number] 23:59:00 Test Item Value Reference Range Interpretation Comments HEMOGLOBIN (BEAKER) (test code = 11.3 g/dL 12.0-15.0 L 410) HEMATOCRIT (BEAKER) (test code = 33.0 % 36.0-45.0 L 411) [id number] 21:53:00 Test Item Value Reference Range Interpretation Comments PARTIAL THROMBOPLASTIN TIME 63.4 seconds 22.5-36.0 H (BEAKER) (test code = 760) 4 hours after the start of continuous infusion and 4 hours after any rate change COMPREHENSIVE METABOLIC [id number] 19:43:00 Test Item Value Reference Range Interpretation [...] DIALYSIS PATIEN TS. Call k > 5, [id number] 19:41:00 Test Item Value Reference Range Interpretation Comments SODIUM (BEAKER) (test 137 meq/L 136-145 code = 381) POTASSIUM (BEAKER) 4.8 meq/L 3.5-5.1 Specimen slightly (test code = 379) hemolyzed CHLORIDE (BEAKER) 109 meq/L 98-107 H (test code = 382) CO2 (BEAKER) (test 20 meq/L 22-29 L code = 355) Call k > 5, [id number] 19:37:00 Test Item Value Reference Range Interpretation [...] INR is2.5-3.5 for patients wiht mechanical heart valves.[id number] 19:36:00 Test Item Value Reference Range Interpretation Comments FIBRINOGEN LEVEL (BEAKER) (test 336 mg/dl 225-434 code = 658) LACTIC ACID, [id number] 19:34:00 Test Item Value Reference Range Interpretation [...] (BEAKER) (test code = 413) BLOOD GAS, [id number] 19:16:00 Test Item Value Reference Range Interpretation [...] (test code = 1819) 36.0 % GLUCOSE-STAT [id number] 19:16:00 Test Item Value Reference Range Interpretation Comments GLUCOSE RANDOM (BEAKER) (test code 231 mg/dL 70-110 H = 652) HGB/HCT (H&H) - STAT [id number] 19:16:00 Test Item Value Reference Range Interpretation Comments HEMOGLOBIN (BEAKER) (test code = 11.5 g/dL 12.0-15.0 L 410) HEMATOCRIT (BEAKER) (test code = 34.0 % 36.0-45.0 L 411) CALCIUM, [id number] 19:15:00 Test Item Value Reference Range Interpretation Comments CALCIUM IONIZED (BEAKER) (test 1.26 mmol/L 1.12-1.27 code = 698) PH, BLOOD (BEAKER) (test code = 7.35 1810) OXYGEN SATURATION, [id number] 19:14:00 Test Item Value Reference Range Interpretation Comments O2 SATURATION (MEASURED) (BEAKER) 41.9 % (test code = 1455) SODIUM NA-STAT [id number] 19:14:00 Test Item Value Reference Range Interpretation Comments SODIUM (BEAKER) (test code = 381) 138 meq/L 135-148 POTASSIUM-STAT [id number] 19:14:00 Test Item Value Reference Range Interpretation Comments POTASSIUM (BEAKER) (test code = 4.7 meq/L 3.6-5.5 379) [id number] 16:45:00 Test Item Value Reference Range Interpretation Comments ACTIVATED CLOTTING TIME 389 sec TEST ED AT [place] [address] ([facility]) (test code = JODY Gipson [facility] 441) [address] HEMOGLOBIN AND [id number] 16:38:00 Test Item Value Reference Range Interpretation Comments HEMOGLOBIN ([facility]) (test code = 10.1 GM/DL 11.2-15.7 L 410) HEMATOCRIT ([facility]) (test code = 31.6 % 34.1-44.9 L 411) PLATELET AGGREGATION: FUNCTION [id number] 16:05:00 Test Item Value Reference Range Interpretation Comments WEAK ADP 34 % 60-91 L RESULT([facility]) (test code = 2135) PLATELET FUNCTION 0-39% indicates marked SCREEN INTERP platelet dysfunction ([facility]) (test code = 2173) [id number] Talia Villarreal MD ([facility]) (test code = (electronic signature) 0157) PLATELET COUNT AGG 186 K/CU MM 150-450 ([facility]) (test code = 2656) Platelet Function Screen results may be falsely low with platelet counts<100,000/cu mm.[id number] 15:02:00 Test Item Value Reference Range Interpretation Comments ACTIVATED CLOTTING TIME 411 sec TEST ED AT [place] [address] ([facility]) (test code = JODY Gipson [facility] 441) [address] POCT-GLUCOSE [id number] 12:17:00 Test Item Value Reference Range Interpretation Comments POC-GLUCOSE METER 103 mg/dL 70-110 TESTED AT [place] [address] ([facility]) (test code = JODY Gip[place] 1538) [address] POCT-GLUCOSE [id number] 08:18:00 Test Item Value Reference Range Interpretation Comments POC-GLUCOSE METER 388 mg/dL 70-110 H TESTED AT [place] [address] ([facility]) (test code = JODY Gipson [facility] 1538) [address] HEPATIC FUNCTION [id number] 08:09:00 Test Item Value Reference Range Interpretation Comments TOTAL PROTEIN ([facility]) 6.2 gm/dL 6.0-8.3 Speci men slightly (test code = 770) hemolyzed ALBUMIN (BEAKER) (test 3.4 g/dL 3.5-5.0 L Speci men [...] slightly (test code = 347) hemolyzed TROPONIN [id number] 06:39:00 Test Item Value Reference Range Interpretation [...] acidosis, acute neurological disease, and persistent tachyarrhythmia.POCT-GLUCOSE [id number] 06:36:00 Test Item Value Reference Range Interpretation Comments POC-GLUCOSE METER 415 mg/dL 70-110 HH TESTED AT [facility] 6720 (BEAKER) (test code = [place] 1538) [address] BASIC METABOLIC [id number] 06:10:00 Test Item Value Reference Range Interpretation [...] S NOT APPLICABLE FOR DIALYSIS PATIEN TS. [id number] 06:03:00 Test Item Value Reference Range Interpretation Comments MAGNESIUM (BEAKER) 2.2 mg/dL 1.6-2.6 Specimen slightly (test code = 627) hemolyzed THROMBIN [id number] 05:09:00 Test Item Value Reference Range Interpretation Comments THROMBIN TIME (BEAKER) (test code = 64.9 secs 13.8-20.0 H 550) Draw baseline aPTT prior to [id number] 05:08:00 Test Item Value Reference Range Interpretation Comments PARTIAL THROMBOPLASTIN TIME 43.1 seconds 22.5-36.0 H (BEAKER) (test code = 760) Draw baseline aPTT prior to infusionPROTHROMBIN [id number] 05:07:00 Test Item Value Reference Range Interpretation [...] to infusion CBC W/PLT COUNT & AUTO [id number] 04:59:00 Test Item Value Reference Range Interpretation [...] = 2801) RAD, CHEST, 1 VIEW, NON [id number] 04:33:00Reason for exam:->preopShould this be performed at the bedside?->YesFINAL REPORT RAD, CHEST, 1 VIEW, NON DEPT INDICATION: preop COMPARISON: Prior day's exam FINDINGS: Portable frontal view of the chest. IMPRESSION: Support Lines: Stable. Lungs and pleura: Unchanged airspace and pleural opacities. No pneumothorax.Heart and mediastinum: Stable contours. Additional findings: None. Signed: Socorro Méndez Verified Date/Time: 08/01/2018 04:33:15 RAD, CHEST, 1 VIEW, NON [id number] 00:02:00Reason for exam:->Intraaortic balloon pump insertionShould this [...] MÉNDEZ MD on08/01/2018 12:02 AMTSH/FREE T4 IF [id number] 21:34:00 Test Item Value Reference Range Interpretation Comments THYROID STIMULATING HORMONE 0.99 uIU/mL 0.35-4.94 (BEAKER) (test code = 772) TROPONIN [id number] 21:26:00 Test Item Value Reference Range Interpretation Comments TROPONIN I (BEAKER) (test code = 0.28 ng/mL 0.00-0.03 HH 397) Troponin I (TnI) [...] = 700) RAD, CHEST, 1 VIEW, NON [id number] 21:20:00Reason for exam:->unstable anginaShould this be performed [...] MDReport Verified Date/Time: 07/31/2018 21:20:52 Reading Location: [address] Consult Reading Room [facility] METABOLIC [id number] 21:18:00 Test Item Value Reference Range Interpretation [...] APPLICABLE FOR DIALYSIS PATIEN TS. HEPATIC FUNCTION [id number] 21:15:00 Test Item Value Reference Range Interpretation [...] (test code = 10 U/L 6-55 347) [id number] 20:57:00 Test Item Value Reference Range Interpretation Comments PARTIAL THROMBOPLASTIN TIME 27.7 seconds 22.5-36.0 (BEAKER) (test code = 760) PROTHROMBIN [id number] 20:56:00 Test Item Value Reference Range Interpretation [...] mechanical heart valves.CBC W/PLT COUNT & AUTO [id number] 20:50:00 Test Item Value Reference Range Interpretation [...] 0-1 PERCENT (BEAKER) (test code = 2801) [id number] 19:45:00 Test Item Value Reference Range Interpretation [...] as d efined by WHO. COMPREHENSIVE METABOLIC [id number] 16:08:00 Test Item Value Reference Range Interpretation [...] code = ALKP) - XR CHEST 1 [id number] 15:43:00 FAX: Rhett Jo [phone] Camps: ER St: REG Name: HENRIQUE ARECHIGA [facility]-Emergency Services : 1940 Age/S: 78/F [address] Unit #: [id number] Loc: [place], [place] [address] Phys: Rhett Sams MD Acct: [id number] Dis Date: Status: REG ER PHONE #: [phone] Exam Date: 07/28/2018 1527 FAX #: [phone] Reason: CP EXAMS: CPT CODE: [id number] XR CHEST 1 V 03181 Examination: Chest 1 view Location code: S17 Comparison: None Discussion: Clinical history is remarkable for chest tightness. Cardiac silhouette is slightly enlarged, atherosclerotic change present. There are coarsened interstitial changes present bilaterally, mild bilateral parenchymal basilar scarring noted. Impression: 1. Coarsened interstitial changes with likely bilateral basilar parenchymal scarring. at 1500 Reported and signed by: YUAN BUNN M.D. CC: Rhett Sams MDTechnologist: HESHAM FONG RT,(R) ARRT Transcribed Date/Time/By: 07/28/2018 (7256) :[email or web address] Orig Print D/T: S: 07/28/2018 (3783) Automated exposure control, iterative reconstruction technique, and/oradjustment of mA and/or kV according to patient's size was utilizedfor optimum radiation dose reduction. PAGE 1 Signed Report TROPONIN I [id number] 15:37:00 Test Item Value Reference Range Interpretation Comments TROPONIN I RAPID 0.03 NG/ML 0.00-0.08 N 0.00 - 0.08 (test code = Normal0.09 - 0. 40 TROPIRAP) Indeterminate f or AMI 0.41 and above Compatible with AMI CHEMISTRY 8 [id number] 15:36:00 Test Item Value Reference Range Interpretation [...] 2.6 MG/DL 0.6-1.0 H CREATBED) CBC W/AUTO [id number] 15:34:00 Test Item Value Reference Range Interpretation [...]
--- OUTSIDE RECORDS SUMMARY | 2019-09-01 14:59 | XMS REPORT ---
:1940 Author Organization eClinicalWorks Care Team Providers Name Role Phone John Perry Provider Role Unavailable Allergies No Known Allergies Problems Problem Type Condition Code Onset Dates Condition Statu s Assessment Atrial flutter, unspecified type I48.92 Active Assessment Stented coronary artery Z95.5 Acti ve Assessment Coronary artery disease involving I25.110 Active [place] coronary artery of [place] heart with unstable angina pectoris Problem Mixed [...] Problem Coronary artery disease involving I25.110 Active [place] coronary artery of [place] heart with unstable angina pectoris Problem At risk for falling Z91.81 Active Problem Atherosclerosis of [place] coronary I25.10 Active artery Problem Chronic kidney disease (CKD), stage N18.4 Active IV (severe) Problem Other osteoporosis M81.8 Active Problem Hypertensive heart disease without I11.9 Active heart failure 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
--- OUTSIDE RECORDS SUMMARY | 2019-09-01 14:59 | XMS REPORT ---
[...] Assessment Coronary artery disease involving I25.110 Active [place] coronary artery of [place] heart with unstable angina pectoris Assessment nursing home current 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 Z79.4 Active Assessment [...] Problem Coronary artery disease involving I25.110 Active [place] coronary artery of [place] heart with unstable angina pectoris Assessment Cervical stenosis of spine M48.02 A ctive Problem Adult BMI 36.0-36.9 kg/sq m Z68.36 Active Assessment Adult BMI 36.0-36.9 kg/sq m Z68.36 Active Problem Stented coronary artery Z95.5 Acti ve Assessment H/O stroke without residual Z86.73 Active deficits Problem 3-vessel coronary artery disease I25.10 Active Assessment 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 Ac tive classified elsewhere Problem Atherosclerosis of [place] coronary I25.10 Active artery Assessment Hypertensive heart disease without I11.9 Active heart failure Problem 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 Ac tive classified elsewhere Assessment Left sided numbness R20.0 Active Problem Other osteoporosis M81.8 Active Assessment Proteinuria, unspecified R80.9 Act diandra Problem At risk for falling Z91.81 Active Assessment History of coronary artery stent Z95.5 Active placement 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 Assessment Mixed hyperlipidemia E78.2 Active Problem Cervical stenosis of spine M48.02 A ctive Problem Chronic kidney disease, stage 4 N18.4 Active (severe) Problem Hypertensive heart disease without I11.9 Active heart failure Medications Medication Code Code Instructions Start End Status Dosage System Date Date Ranolazine ER [facility] 02956138534 500 MG Oral Active TA KE 1 TABLET BY MOUTH TWICE A DAY Lactobacillus NDC 0 Active not define d Calcitriol [facility] 87717638608 0.5 MCG Active TAKE 1 CAPSULE BY MOUTH EVERY DAY Folic Acid [facility] 13807224171 1 MG Active TAKE 1 TABLET BY MOUTH EVERY DAY Bumetanide [facility] 28038214493 1 MG Oral Active TAKE 1 TABLET BY MOUTH TWICE A DAY Ranolazine ER [facility] 03173675439 500 MG Orally May Active 1 tablet Twice a day 2019 Nitrostat [facility] 47169411933 0.4 MG Active as directe d Sublingual 3 doses within 15 minutes PRN CHEST PAIN Senna S [facility] 04575572201 8.6-50 MG Active 1 tablet i n Orally Once a the evenin g day as needed Protonix [facility] 27152128468 40 MG Orally Active 1 pack et Once a day mixed with apple juice or applesauce Cyanocobalamin [facility] [address]-46 1000 MCG Active 1 tablet Orally Once a day Tradjenta [facility] 53667462295 5 MG Orally Active 1 tabl et Once a day Calcitriol [facility] 01607904925 0.5 MCG Orally Active 1 capsule Once a day Brilinta [facility] 73990867158 90 MG Orally Chyna Active 1 tabl et Twice a day 2019 Aspir-Low ND 42593186750 81 MG Orally Active 1 tab let Once a day Cranberry [facility] 50125-82715 Active not define d Extract Brilinta [facility] 84782363084 90 MG Oral Active TAKE 1 TABLET BY MOUTH TWICE A DAY Clopidogrel [facility] 34840595265 75 MG Orally Inactive 1 tablet Bisulfate Once a day BD Pen Needle [facility] 86553715792 31G X 5 MM Active USE Mini U/F DIRECTED Atorvastatin [facility] 35719841393 80 MG Active TAKE 1 Calcium TABLET BY MOUTH EVERY DAY Tresiba [facility] 19591288385 200 UNIT/ML Active 14 units FlexTouch Subcutaneous daily Thiamine HCl [facility] 95709335453 100 MG Orally Active 1 tablet Once a day Lipitor [facility] 66247385955 80 MG Orally Active 1 table t Once a day Vitamin D-3 [facility] 33080015920 5000 UNIT Active as dir ected Orally Ferrous Sulfate [facility] 23740374217 325 (65 Fe) MG Activ e TAKE 1 Oral TABLET BY MOUTH TWICE A DAY Metoprolol [facility] 37902805842 50 MG Orally Active 1 ta blet Tartrate Twice a day with food Results No Known Results Summary Purpose eClinicalWorks Submission
--- OUTSIDE RECORDS SUMMARY | 2019-09-01 15:00 | XMS REPORT ---
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
--- OUTSIDE RECORDS SUMMARY | 2019-09-01 15:00 | XMS REPORT ---
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
--- OUTSIDE RECORDS SUMMARY | 2019-09-01 15:00 | XMS REPORT ---
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
--- OUTSIDE RECORDS SUMMARY | 2019-09-01 15:00 | XMS REPORT ---
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 knee Problem Cervical stenosis (uterine cervix) N88.2 Active Problem Primary osteoarthritis of left M17.12 Active knee Problem Adult BMI 36.0-36.9 kg/sq m Z68.36 Active Problem Acute pain of left knee M25.562 Acti ve Problem NSTEMI (non-ST elevated myocardial I21.4 Active infarction) Problem Atrial flutter, unspecified type I48.92 Active Problem Other osteoporosis M81.8 Active Problem Chronic kidney disease (CKD), N18.4 Active stage IV (severe) Problem Gastroesophageal reflux disease K21.9 Active without esophagitis Problem Proteinuria, unspecified R80.9 Act [place] Problem 3-vessel coronary artery disease I25.10 Active Problem Coronary artery disease involving I25.110 Active [place] coronary artery of [place] heart with unstable angina pectoris Problem History of cholecystectomy Z90.49 A ctive Problem Stented coronary artery Z95.5 Acti ve Problem 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 Ac tive classified elsewhere Problem Chronic kidney disease, stage 4 N18.4 Active (severe) Problem At risk for falling Z91.81 Active Problem Atherosclerosis of [place] coronary I25.10 Active artery Problem Cervical stenosis of spine M48.02 A ctive Problem Type 2 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 Problem Hypertensive heart disease without I11.9 Active heart failure Problem 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
--- OUTSIDE RECORDS SUMMARY | 2019-09-01 15:00 | XMS REPORT ---
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 knee Problem Cervical stenosis (uterine cervix) N88.2 Active Problem Primary osteoarthritis of left knee M17.12 Active Problem Adult BMI 36.0-36.9 kg/sq m Z68.36 Active Problem Acute pain of left knee M25.562 Acti ve Problem NSTEMI (non-ST elevated myocardial I21.4 Active infarction) Problem Atrial flutter, unspecified type I48.92 Active Problem Other osteoporosis M81.8 Active Problem Chronic kidney disease (CKD), stage N18.4 Active IV (severe) Problem Gastroesophageal reflux disease K21.9 Active without esophagitis Problem Proteinuria, unspecified R80.9 Act [place] Problem 3-vessel coronary artery disease I25.10 Active Problem Coronary artery disease involving I25.110 Active [place] coronary artery of [place] heart with unstable angina pectoris Problem History of cholecystectomy Z90.49 A ctive Problem Stented coronary artery Z95.5 Acti ve Problem 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 Ac tive classified elsewhere Problem Chronic kidney disease, stage 4 N18.4 Active (severe) Problem At risk for falling Z91.81 Active Problem Atherosclerosis of [place] coronary I25.10 Active artery Problem Cervical stenosis of spine M48.02 A ctive Problem Type 2 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 Problem Hypertensive heart disease without I11.9 Active heart failure 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
[2019-09-01 16:49] LABS: Absolute Lymphocytes (CBC) 0.9 K/uL (0.7-4.9); Basophils % 0.6 % (0-1.3); Hematocrit 33.8 % (36.0-45.0); Lymphocytes % 10.9 % (15.3-44.8); MPV 8.7 fL (7.6-11.3); RBC Red Blood Cell Count 3.61 M/uL (3.86-4.86)
[2019-09-01] MEDS ORDERED: FUROSEMIDE 40 MG/4 ML VIAL ONE (17:14)
[2019-09-01 17:15] LABS: Potassium 4.5 mmol/L (3.5-5.1)
--- NOTE | 2019-09-01 17:38 | RAD REPORT ---
EXAM DESCRIPTION: Axel Single View09/01/2019 5:28 pm CLINICAL HISTORY: sob COMPARISON: August 26, 2019 FINDINGS: [id number] bilateral pulmonary opacities. The heart is enlarged. PICC line with its tip in the superior vena cava IMPRESSION: Mild to moderate CHF
[2019-09-01] MEDS ORDERED: FUROSEMIDE 20 MG/ 2ML VIAL ONE (17:44)
--- NOTE | 2019-09-01 18:32 | EDPHYS ---
Physician Documentation [facility] Name: Suzan Gonzalez Age: 79 yrs Sex: Female : 1940 Arrival Date: 09/01/2019 Time: 14:41 Bed 5 Private MD: John Perry ED Physician Hipolito Phan HPI: 08/31 17:02 This 79 yrs old Female presents to ER via Wheelchair with complaints of rn Breathing Difficulty. 17:02 The patient has shortness of breath with light activity. rn 17:02 Onset: The symptoms/episode began/occurred 3 day(s) ago. Duration: The symptoms are rn intermittent. The patient's shortness of breath is aggravated by exertion, supine position. Severity of symptoms: At their worst the symptoms were mild in the emergency department the symptoms are unchanged. The patient has experienced similar episodes in the past. Reports has chronic kidney problems, has been getting IV vancomycin for osteo here in ER by IV therapy, her kidney doctor told her to take extra lasix given extra volume of infusion, patient feels like still building up fluid. + mild sob and worse with exertion and when supine. No fever. No headache/loss of taste or smell/abd pain/diarrhea/rash. . Historical: - Allergies: 14:56 "every pain narcotic"; ca1 14:56 Bactrim; ca1 14:56 Benadryl; ca1 14:56 Levaquin; ca1 14:56 Iodine; ca1 14:56 Levofloxacin; ca1 14:56 Morphine; ca1 14:56 Sulfa (Sulfonamide Antibiotics); ca1 - Home Meds: 14:56 atorvastatin 80 mg Oral tab 1 tab once daily [Active]; bumetanide 1 mg Oral tab 1 tab 2 ca1 times per day [Active]; folic acid 1 mg Oral tab 1 tab once daily [Active]; metoprolol tartrate 100 mg Oral tab 1 tab 2 times per day [Active]; calcitriol 0.5 mcg Oral cap 1 cap once daily [Active]; Tradjenta 5 mg Oral tab 1 tab once daily [Active]; Tresiba FlexTouch U-100 100 unit/mL (3 mL) subcutaneous inpn daily [Active]; nitroglycerin 0.4 mg SL subl 1 tab every 5 minutes [Active]; Ranexa 500 mg Oral Tb12 1 tab 2 times per day [Active]; BRILINTA 90 mg Oral tab 1 tab 2 times per day [Active]; aspirin 81 mg Oral chew 1 tab once daily [Active]; Probiotic Oral daily [Active]; - PMHx: 14:56 Diabetes - NIDDM; kidney problems; ca1 - PSHx: 14:56 Angioplasty; ca1 - Immunization history:: Adult Immunizations up to date. - Social history:: Smoking status: Patient denies any tobacco usage or history of. - Family history:: not pertinent. - Hospitalizations: : No recent hospitalization is reported. ROS: 17:02 Constitutional: Negative for fever, chills, and weight loss, Eyes: Negative for injury, rn pain, redness, and discharge, Cardiovascular: Negative for chest pain, palpitations, and edema, Respiratory: Negative for wheezing, and pleuritic chest pain, Abdomen/GI: Negative for abdominal pain, nausea, vomiting, diarrhea, and constipation, MS/Extremity: Negative for injury and deformity, Skin: Negative for injury, rash, and discoloration, Neuro: Negative for headache, weakness, numbness, tingling, and seizure. Exam: 17:02 Constitutional: This is a well developed, well nourished patient who is awake, alert, rn and in no acute distress. Head/Face: Normocephalic, atraumatic. Cardiovascular: Regular rate and rhythm. No pulse deficits. Respiratory: No increased work of breathing, no retractions or nasal flaring. Abdomen/GI: soft, non-tender Skin: Warm, dry MS/ Extremity: Pulses equal, no cyanosis. Neurovascular intact. Full, normal range of motion. Equal circumference. Neuro: Awake and alert, GCS 15 Vital Signs: 14:48 BP 131 / 58; Pulse 75; Resp 16 S; Temp 99.2(TE); Pulse Ox 98% on R/A; Weight 72.57 kg ca1 (R); Height 5 ft. 1 in. (154.94 cm) (R); 16:30 BP 118 / 66; Pulse 72; Resp 16; Temp 98.6; iw 17:30 BP 144 / 62; Pulse 76; Resp 17; Pulse Ox 98% ; bp 18:30 BP 118 / 66; Pulse 80; Resp 17; Pulse Ox 98% ; bp 14:48 Body Mass Index 30.23 (72.57 kg, 154.94 cm) ca1 MDM: 16:25 Patient medically screened. rn 18:29 Differential diagnosis: CHF exacerbation, pulmonary edema. Data reviewed: vital signs, rn nurses notes, lab test result(s), radiologic studies, plain films, and as a result, I will discharge patient. Test interpretation: by ED physician or midlevel provider: plain radiologic studies, CXR shows mild pulmonary edema. Counseling: I had a detailed discussion with the patient and/or guardian regarding: the historical points, exam findings, and any diagnostic results supporting the discharge/admit diagnosis, lab results, radiology results, the need for outpatient follow up, to return to the emergency department if symptoms worsen or persist or if there are any questions or concerns that arise at home. Response to treatment: the patient's symptoms have mildly improved after treatment, and as a result, I will discharge patient. Special discussion: I discussed with the patient/guardian in detail that at this point there is no indication for admission to the hospital. It is understood, however, that if the symptoms persist or worsen the patient needs to return immediately for re-evaluation. ED course: Had long conversations with patient, symptoms have improved after IV lasix, + good urination effect, no oxygen requirement, repeat temp no fever, procal neg, will dc home. Pt to call Dr. King for further instructions and told her that fluid balance will be difficult for the next few weeks of IV therapy, and might have to get used to being alittle more overloaded than she is used to. Especially given nephrotoxicity of vancomycin and increased lasix use. . 08/31 16:31 Order name: CBC with Diff; Complete Time: 17:19 rn 08/31 16:31 Order name: Basic Metabolic Panel; Complete Time: 17:19 rn 08/31 16:31 Order name: XRAY Chest (1 view); Complete Time: 17:38 rn 08/31 16:31 Order name: BNP; Complete Time: 17:19 rn 08/31 16:31 Order name: Procalcitonin; Complete Time: 17:38 rn 08/31 16:31 Order name: IV Start; Complete Time: 16:51 rn Administered Medications: 17:37 Drug: Lasix 40 mg Route: IVP; Site: right upper arm; em 19:20 Follow up: Response: No adverse reaction em 17:37 Drug: Lasix 20 mg Route: IVP; Site: right upper arm; em 19:20 Follow up: Response: No adverse reaction em Disposition: 09/01/19 18:32 Discharged to Home. Impression: Shortness of breath, Pulmonary edema, Chronic kidney disease, unspecified. - Condition is Stable. - Discharge Instructions: Shortness of Breath, Chronic Kidney Disease, Adult, [id number]. - Medication Reconciliation Form, Thank You Letter, Antibiotic Education, Prescription Opioid Use form. - Follow up: Hakan King; When: 1 - 2 days; Reason: Recheck today's complaints, Re-evaluation by your physician. - Problem is new. - Symptoms have improved. Signatures: Dispatcher [employer] Rob Givens, RN RN em Hipolito Phan MD MD rn Acob, SOLITARIO Lopez RN ca1 Corrections: (The following items were deleted from the chart) 19:21 18:32 09/01/2019 18:32 Discharged to Home. Impression: Shortness of breath; Pulmonary em edema; Chronic kidney disease, unspecified. Condition is Stable. Discharge Instructions: Shortness of Breath, Chronic Kidney Disease, Adult, [id number]. Forms are Medication Reconciliation Form, Thank You Letter, Antibiotic Education, Prescription Opioid Use. Follow up: Hakan King; When: 1 - 2 days; Reason: Recheck today's complaints, Re-evaluation by your physician. Problem is new. Symptoms have improved. rn
--- NOTE | 2019-09-01 18:32 | ER ---
Nurse's Notes [facility] Name: Suzan Gonzalez Age: 79 yrs Sex: Female : 1940 Arrival Date: 09/01/2019 Time: 14:41 Bed 5 Private MD: John Perry Diagnosis: Shortness of breath;Pulmonary edema;Chronic kidney disease, unspecified Presentation: 08/31 14:48 Chief complaint: Patient's son or daughter states: She IV Vancomycin every other day ca1 for infection on her bone. And the kidney doctor said to come to the ER if she develops s/s of fluid retention. S/S started 3 days ago. SOB with exertion and chest tightness, and has just progressed and getting worse. Denies fever. Denies cough. Reports swelling on hands and face. Coronavirus screen: Proceed with normal triage. Patient denies a cough. Patient reports shortness of breath or difficulty breathing. Patient denies measured and/or subjective temperature greater than 100.4F prior to today's visit. Patient denies travel on a cruise ship or to a country the [facility] currently lists as an affected area. Patient denies contact with known and/or suspected case of COVID-19. Ebola Screen: Patient negative for fever greater than or equal to 101.5 degrees Fahrenheit, and additional compatible Ebola Virus Disease symptoms Patient denies exposure to infectious person. Patient denies travel to an Ebola-affected area in the 21 days before illness onset. No symptoms or risks identified at this time. Initial Sepsis Screen: Does the patient meet any 2 criteria? No. Patient's initial sepsis screen is negative. Does the patient have a suspected source of infection? No. Patient's initial sepsis screen is negative. Risk Assessment: Do you want to hurt yourself or someone else? Patient reports no desire to harm self or others. Onset of symptoms was September 01, 2019. 14:48 Method Of Arrival: Wheelchair ca1 14:48 Acuity: SERGIO 3 ca1 Triage Assessment: 14:56 Respiratory: Reports shortness of breath on exertion Airway is patent Respiratory ca1 effort is even, unlabored, Respiratory pattern is regular, symmetrical, Onset: The symptoms/episode began/occurred gradually, the patient has mild shortness of breath. Historical: - Allergies: 14:56 "every pain narcotic"; ca1 14:56 Bactrim; ca1 14:56 Benadryl; ca1 14:56 Levaquin; ca1 14:56 Iodine; ca1 14:56 Levofloxacin; ca1 14:56 Morphine; ca1 14:56 Sulfa (Sulfonamide Antibiotics); ca1 - Home Meds: 14:56 atorvastatin 80 mg Oral tab 1 tab once daily [Active]; bumetanide 1 mg Oral tab 1 tab 2 ca1 times per day [Active]; folic acid 1 mg Oral tab 1 tab once daily [Active]; metoprolol tartrate 100 mg Oral tab 1 tab 2 times per day [Active]; calcitriol 0.5 mcg Oral cap 1 cap once daily [Active]; Tradjenta 5 mg Oral tab 1 tab once daily [Active]; Tresiba FlexTouch U-100 100 unit/mL (3 mL) subcutaneous inpn daily [Active]; nitroglycerin 0.4 mg SL subl 1 tab every 5 minutes [Active]; Ranexa 500 mg Oral Tb12 1 tab 2 times per day [Active]; BRILINTA 90 mg Oral tab 1 tab 2 times per day [Active]; aspirin 81 mg Oral chew 1 tab once daily [Active]; Probiotic Oral daily [Active]; - PMHx: 14:56 Diabetes - NIDDM; kidney problems; ca1 - PSHx: 14:56 Angioplasty; ca1 - Immunization history:: Adult Immunizations up to date. - Social history:: Smoking status: Patient denies any tobacco usage or history of. - Family history:: not pertinent. - Hospitalizations: : No recent hospitalization is reported. Screenin:30 Abuse screen: Denies threats or abuse. Nutritional screening: No deficits noted. em Tuberculosis screening: No symptoms or risk factors identified. Fall Risk None identified. Assessment: 16:30 General: Appears in no apparent distress. comfortable, Behavior is calm, cooperative, em appropriate for age. Pain: Denies pain. Neuro: Level of Consciousness is awake, alert, obeys commands, Oriented to person, place, time, situation, Appropriate for age. Cardiovascular: Capillary refill < 3 seconds Patient's skin is warm and dry. Edema is absent. Rhythm is regular. Respiratory: Reports shortness of breath at rest Airway is patent Respiratory effort is even, unlabored, Respiratory pattern is regular, symmetrical, Breath sounds are clear bilaterally. GI: Abdomen is flat. Derm: Skin is intact, is fragile, is thin, Skin is pink, warm \\T\\ dry. Musculoskeletal: Capillary refill < 3 seconds, Range of motion: intact in all extremities. 17:37 Reassessment: Patient appears in no apparent distress at this time. Patient and/or em family updated on plan of care and expected duration. Pain level reassessed. Patient is alert, oriented x 3, equal unlabored respirations, skin warm/dry/pink. 18:30 Reassessment: Patient appears in no apparent distress at this time. Patient and/or em family updated on plan of care and expected duration. Pain level reassessed. Patient is alert, oriented x 3, equal unlabored respirations, skin warm/dry/pink. 19:04 Reassessment: pt discharged, waiting for daughter to come pick pt up/. em Vital Signs: 14:48 BP 131 / 58; Pulse 75; Resp 16 S; Temp 99.2(TE); Pulse Ox 98% on R/A; Weight 72.57 kg ca1 (R); Height 5 ft. 1 in. (154.94 cm) (R); 16:30 BP 118 / 66; Pulse 72; Resp 16; Temp 98.6; iw 17:30 BP 144 / 62; Pulse 76; Resp 17; Pulse Ox 98% ; bp 18:30 BP 118 / 66; Pulse 80; Resp 17; Pulse Ox 98% ; bp 14:48 Body Mass Index 30.23 (72.57 kg, 154.94 cm) ca1 ED Course: 14:41 Patient arrived in ED. ag5 14:41 John Perry DO is Private Physician. ag5 14:54 Triage completed. ca1 14:56 Arm band placed on right wrist. ca1 16:25 Hipolito Phan MD is Attending Physician. rn 16:27 Rob Broderick, SOLITARIO is Primary Nurse. em 16:30 Patient has correct armband on for positive identification. Bed in low position. Call em light in reach. Pulse ox on. NIBP on. 16:30 IV is patent, is intact, with fluids infusing freely, with good blood return, pt has em midline in the upper right arm. 17:28 XRAY Chest (1 view) In Process Unspecified. EDMS 18:32 Hakan King DO is Referral Physician. rn 19:19 No provider procedures requiring assistance completed. intact. em Administered Medications: 17:37 Drug: Lasix 40 mg Route: IVP; Site: right upper arm; em 19:20 Follow up: Response: No adverse reaction em 17:37 Drug: Lasix 20 mg Route: IVP; Site: right upper arm; em 19:20 Follow up: Response: No adverse reaction em Outcome: 18:32 Discharge ordered by MD. rn 19:20 Discharged to home via wheelchair. em 19:20 Condition: good 19:20 Discharge instructions given to patient, Instructed on discharge instructions, follow up and referral plans. Demonstrated understanding of instructions. 19:21 Patient left the ED. em Signatures: Dispatcher [employer] Rob Givens RN Nissa Lambert RN Hipolito Johnson MD MD rn Peltier, Brian, RN RN bp Acob, Cheryl, RN RN ca1 Gaskin, Ajare ag5 Corrections: (The following items were deleted from the chart) 18:33 16:30 Resp 16bpm; Temp 98.6F; iw
[2019-09-01 19:29] VITALS: O2SAT 98
[2019-09-01 19:30] VITALS: TEMP 98.6
[2019-09-01 19:33] VITALS: BP 118/66
== END 2019-09-01 19:21 | disposition home or self-care (01) ==
LOC: ER 14:40
DX: J81.1 Chronic pulmonary edema (principal); E11.22 Type 2 diabetes mellitus with diabetic chronic kidney disease; N18.9 Chronic kidney disease, unspecified; Z79.4 Long term (current) use of insulin; Z88.1 Allergy status to other antibiotic agents; Z88.2 Allergy status to sulfonamides; Z88.5 Allergy status to narcotic agent; Z88.8 Allergy status to other drugs, medicaments and biological substances
CPT/HCPCS: 85025; 80048; 36415; 84145; 83880; 71045; 96374; 99284; J1940 ×2

== ENCOUNTER 2019-09-21 11:17 | Observation (INO) | payer OTHER ==
--- OUTSIDE RECORDS SUMMARY | 2019-09-21 11:23 | XMS REPORT | Clinical Summary ---
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 01/30/2019 H/O stroke without residual deficits [...] Zamora MD 03/21/2019 Surgery Gastroenterology Nely Clinton [facility] COPY MD Daniel 03/20/2019 Orders Only General [...] Devin Choe MD 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); 11/13/2018 Daya Fair Unstable angina (HCC); MD Tiffanie 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) 11/10/2018 Travel after 09/20/2018 Social History Tobacco Use Types Packs/Day Years [...] Not on file Implants Implanted Type Area Crop Production Advisor Device Shelf Model / Identifier Expiration Serial / Date Lot Stent Bettie Caballero [id number] - [id number] IMPLANTS N/A: BOSTON [id number] 04/04/2020 [id number] / Implanted: Qty: 1 on 08/01/2018 by Spencer Todd MD Alvarez ry SCI:INTERV / CARDIOLOGY [id number] Stent Synergy Mr [id number] - [id number] IMPLANTS N/A: BOSTON [id number] 04/04/2020 [id number] / Implanted: Qty: 1 on 08/01/2018 by Spencer Todd MD Corona ry SCI:INTERV / CARDIOLOGY [id number] Stent Synergy Mr [id number] - [id number] IMPLANTS N/A: BOSTON [id number] 04/01/2020 [id number] / Implanted: Qty: 1 on 08/01/2018 by Spencer Todd MD Corona ry SCI:INTERV / CARDIOLOGY [id number] Stent Synergy Otw [id number] - [id number] IMPLANTS Left: BOSTON [id number] 05/16/2020 [id number] / Implanted: Qty: 1 on 08/07/2018 by Spencer Todd MD Corona ry SCI:INTERV / CARDIOLOGY [id number] Stent Synergy Otw [id number] - [id number] IMPLAN TS Right: BOSTON [id number] 04/30/2020 [id number] / Implanted: Qty: 1 on 08/07/2018 by Spencer Todd MD Corona ry SCI:INTERV / CARDIOLOGY [id number] Stent Synergy Otw [id number] - [id number] IMPLAN TS Right: BOSTON [id number] 05/21/2020 [id number] / Implanted: Qty: 1 on 08/07/2018 by Spencer Todd MD Corona ry SCI:INTERV / CARDIOLOGY [id number] Stent Synergy Mr [id number] - [id number] IMPLANTS Right: BOSTON [id number] 04/10/2020 [id number] / Implanted: Qty: 1 on 08/07/2018 by Spencer Todd MD Corona ry SCI:INTERV / CARDIOLOGY [id number] Stent Synergy Otw [id number] - [id number] IMPLAN TS Right: BOSTON [id number] 04/15/2020 [id number] / Implanted: Qty: 1 on 08/07/2018 by Spencer Todd MD Corona ry SCI:INTERV / CARDIOLOGY [id number] Stent Synergy Otw [id number] - [id number] IMPLANTS BOSTON [id number] 08/07/2020 [id number] / Implanted: Qty: 1 on 11/12/2018 by Spencer Todd MD SCI:INTERV / CARDIOLOGY [id number] Stent Synergy Mr [id number] - [id number] IMPLANTS Right: BOSTON [id number] 09/25/2020 [id number] / Implanted: Qty: 1 on 03/22/2019 by Spencer Todd MD Corona ry SCI:INTERV / CARDIOLOGY [id number] Procedures Procedure Name Priority Date/Time Associated Comments [...] section. VASCULAR DIAGRAM -SCAN 03/27/2019 2:02 PM NEEDLE LOOM OPERATOR HELPER RHYTHM STRIP - SCAN 03/26/2019 2:31 PM NEEDLE LOOM OPERATOR HELPER VASCULAR DIAGRAM -SCAN 03/26/2019 8:41 AM NEEDLE LOOM OPERATOR HELPER REPORT OF PROCEDURE - 03/26/2019 8:41 ENDOSCOPY SCAN AM NEEDLE LOOM OPERATOR HELPER CARDIAC CATH REPORT - 03/26/2019 8:41 SCAN AM NEEDLE LOOM OPERATOR HELPER CARDIAC CATH REPORT - 03/26/2019 8:41 SCAN AM NEEDLE LOOM OPERATOR HELPER RHYTHM STRIP - SCAN 03/26/2019 8:41 AM NEEDLE LOOM OPERATOR HELPER PERIPHERAL VASCULAR 03/23/2019 9:20 REPORT - SCAN PM NEEDLE LOOM OPERATOR HELPER POCT-GLUCOSE METER Routine 03/23/2019 11:39 Resul ts for this AM NEEDLE LOOM OPERATOR HELPER procedure are i n the results section. POCT-GLUCOSE METER Routine 03/23/2019 8:22 Resul ts for this AM NEEDLE LOOM OPERATOR HELPER procedure are i n the results section. COMPREHENSIVE Routine 03/23/2019 5:27 Results fo r this METABOLIC PANEL AM NEEDLE LOOM OPERATOR HELPER procedure ar e in the results section. CBC W/PLT COUNT & AUTO Routine 03/23/2019 3:36 R esults for this DIFFERENTIAL AM NEEDLE LOOM OPERATOR HELPER procedure are i n the results section. CBC W/PLT COUNT & AUTO Routine 03/23/2019 3:36 R esults for this DIFFERENTIAL AM NEEDLE LOOM OPERATOR HELPER procedure are i n the results section. POCT-GLUCOSE METER Routine 03/22/2019 9:57 Resul ts for this PM NEEDLE LOOM OPERATOR HELPER procedure are i n the results section. ECHOCARDIOGRAM REPORT 03/22/2019 9:20 - SCAN PM NEEDLE LOOM OPERATOR HELPER CAROTID DOPPLER Routine 03/22/2019 7:42 Results for this BILATERAL PM NEEDLE LOOM OPERATOR HELPER procedure are i n the results section. POCT-GLUCOSE METER Routine 03/22/2019 5:18 Resul ts for this PM NEEDLE LOOM OPERATOR HELPER procedure are i n the results section. CBC (HEMOGRAM ONLY) Routine 03/22/2019 3:55 Resu lts for this PM NEEDLE LOOM OPERATOR HELPER procedure are i n the results section. BASIC METABOLIC PANEL Routine 03/22/2019 3:55 Re sults for this (7) PM NEEDLE LOOM OPERATOR HELPER procedure are i n the results section. POCT-GLUCOSE METER Routine 03/22/2019 3:00 Resul ts for this PM NEEDLE LOOM OPERATOR HELPER procedure are i n the results section. 2D ECHO W/ DOPPLER Routine 03/22/2019 2:04 Resul ts for this (CW/PW/COLOR) PM NEEDLE LOOM OPERATOR HELPER procedure are in the results section. POCT-ACT Routine 03/22/2019 10:59 Results for this AM NEEDLE LOOM OPERATOR HELPER procedure are i n the results section. POCT-ACT Routine 03/22/2019 10:32 Results for this AM NEEDLE LOOM OPERATOR HELPER procedure are i n the results section. L CATH & PCI 03/22/2019 10:18 Coronary artery AM NEEDLE LOOM OPERATOR HELPER disease with angina pectoris, unspecified vessel or lesion type, unspecified whether lummi or transplanted heart (HCC) Case Notes 1430 POCT-GLUCOSE METER Routine 03/22/2019 7:33 AM NEEDLE LOOM OPERATOR HELPER Results for this procedure are i n the results section . CBC W/PLT COUNT & AUTO Routine 03/22/2019 2:06 AM NEEDLE LOOM OPERATOR HELPER Results for this DIFFERENTIAL procedure are i n the results section . LIPID PANEL Routine 03/22/2019 2:06 AM NEEDLE LOOM OPERATOR HELPER Resu lts for this procedure are i n the results section . PHOSPHORUS Routine 03/22/2019 2:06 AM NEEDLE LOOM OPERATOR HELPER Resu lts for this procedure are i n the results section . MAGNESIUM Routine 03/22/2019 2:06 AM NEEDLE LOOM OPERATOR HELPER Resu lts for this procedure are i n the results section . CALCIUM, IONIZED Routine 03/22/2019 2:06 AM NEEDLE LOOM OPERATOR HELPER Results for this procedure are i n the results section . CBC W/PLT COUNT & AUTO Routine 03/22/2019 2:06 AM NEEDLE LOOM OPERATOR HELPER Results for this DIFFERENTIAL procedure are i n the results section . B-TYPE NATRIURETIC FACTOR Routine 03/22/2019 2:06 AM NEEDLE LOOM OPERATOR HELPER Results for this (BNP) procedure are i n the results section . BASIC METABOLIC PANEL (7) Routine 03/22/2019 2:06 AM NEEDLE LOOM OPERATOR HELPER Results for this procedure are i n the results section . APTT Routine 03/22/2019 2:06 AM NEEDLE LOOM OPERATOR HELPER Resu lts for this procedure are i n the results section . US ABDOMEN COMPLETE Routine 03/22/2019 12:10 AM NEEDLE LOOM OPERATOR HELPER Results for this procedure are i n the results section . POCT-GLUCOSE METER Routine 03/21/2019 9:24 PM NEEDLE LOOM OPERATOR HELPER Results for this procedure are i n the results section . APTT Routine 03/21/2019 6:57 PM NEEDLE LOOM OPERATOR HELPER Resu lts for this procedure are i n the results section . POCT-GLUCOSE METER Routine 03/21/2019 5:26 PM NEEDLE LOOM OPERATOR HELPER Results for this procedure are i n the results section . ECG 12-LEAD Routine 03/21/2019 5:24 PM NEEDLE LOOM OPERATOR HELPER Resu lts for this procedure are i n the results section . ECG 12-LEAD Routine 03/21/2019 5:24 PM NEEDLE LOOM OPERATOR HELPER Procedure Note - Interface, External Ris In - 03/21/2019 5:25 PM NEEDLE LOOM OPERATOR HELPER Ventricular Rate 72 BPM Atrial Rate 72 BPM P-R Interval 178 ms QRS Duration 110 ms Q-T Interval 448 ms QTC Calculation(Bazett) 490 ms P [place] 75 degrees R [place] 24 degrees T [place] 165 degrees Normal sinus rhythm Incomplete left bundle branc h block ST & T wave abnormality, con tractor operator lateral ischemia Prolonged QT Abnormal ECG When compared with ECG of 00:29, No significant change was fo und CT BRAIN WITHOUT IV RHETT 03/21/2019 4:58 PM R esults for this CONTRAST NEEDLE LOOM OPERATOR HELPER procedure are i n the results section. TROPONIN I Routine 03/21/2019 3:07 PM Results for this NEEDLE LOOM OPERATOR HELPER procedure are i n the results section. XR SHOULDER LEFT RHETT 03/21/2019 2:25 PM Resu lts for this COMPLETE MIN 2 VIEWS NEEDLE LOOM OPERATOR HELPER procedu re are in the results section. POCT-GLUCOSE METER Routine 03/21/2019 12:58 PM Re sults for this NEEDLE LOOM OPERATOR HELPER procedure are i n the results section. REPORT OF PROCEDURE - 03/21/2019 12:27 PM ENDOSCOPY URL NEEDLE LOOM OPERATOR HELPER UPPER ENDOSCOPY 03/21/2019 12:00 PM Atypical chest NEEDLE LOOM OPERATOR HELPER pain APTT Routine 03/21/2019 10:36 AM Results for this NEEDLE LOOM OPERATOR HELPER procedure are i n the results section. POCT-GLUCOSE METER Routine 03/21/2019 7:39 AM Re sults for this NEEDLE LOOM OPERATOR HELPER procedure are i n the results section. APTT Routine 03/21/2019 3:19 AM Results for this NEEDLE LOOM OPERATOR HELPER procedure are i n the results section. BASIC METABOLIC PANEL Routine 03/21/2019 2:23 AM Results for this (7) NEEDLE LOOM OPERATOR HELPER procedure are i n the results section. CBC (HEMOGRAM ONLY) Routine 03/21/2019 2:22 AM R esults for this NEEDLE LOOM OPERATOR HELPER procedure are i n the results section. POCT-GLUCOSE METER Routine 03/20/2019 9:46 PM Re sults for this NEEDLE LOOM OPERATOR HELPER procedure are i n the results section. APTT Routine 03/20/2019 7:09 PM Results for this NEEDLE LOOM OPERATOR HELPER procedure are i n the results section. POCT-GLUCOSE METER Routine 03/20/2019 6:20 PM Re sults for this NEEDLE LOOM OPERATOR HELPER procedure are i n the results section. URINALYSIS W/ Routine 03/20/2019 5:57 PM Results for this MICROSCOPIC NEEDLE LOOM OPERATOR HELPER procedure are i n the results section. CREATININE, RANDOM Routine 03/20/2019 5:57 PM Re sults for this URINE NEEDLE LOOM OPERATOR HELPER procedure are i n the results section. PROTEIN, RANDOM URINE Routine 03/20/2019 5:57 PM Results for this NEEDLE LOOM OPERATOR HELPER procedure are i n the results section. XR CHEST 1 VIEW Routine 03/20/2019 3:12 PM Resul ts for this PORTABLE/BEDSIDE NEEDLE LOOM OPERATOR HELPER procedure a re in the results section. TROPONIN I Routine 03/20/2019 12:19 PM Results for this NEEDLE LOOM OPERATOR HELPER procedure are i n the results section. APTT Routine 03/20/2019 12:19 PM Results for this NEEDLE LOOM OPERATOR HELPER procedure are i n the results section. POCT-GLUCOSE METER Routine 03/20/2019 11:45 AM Re sults for this NEEDLE LOOM OPERATOR HELPER procedure are i n the results section. POCT-GLUCOSE METER Routine 03/20/2019 7:37 AM Re sults for this NEEDLE LOOM OPERATOR HELPER procedure are i n the results section. TROPONIN I Routine 03/20/2019 5:54 AM Results for this NEEDLE LOOM OPERATOR HELPER procedure are i n the results section. CBC W/PLT COUNT & AUTO Routine 03/20/2019 12:43 AM Results for this DIFFERENTIAL NEEDLE LOOM OPERATOR HELPER procedure are i n the results section. APTT Routine 03/20/2019 12:43 AM Results for this NEEDLE LOOM OPERATOR HELPER procedure are i n the results section. TROPONIN I Routine 03/20/2019 12:43 AM Results for this NEEDLE LOOM OPERATOR HELPER procedure are i n the results section. HEMOGLOBIN A1C Routine 03/20/2019 12:43 AM Result s for this NEEDLE LOOM OPERATOR HELPER procedure are i n the results section. MAGNESIUM Routine 03/20/2019 12:43 AM Results for this NEEDLE LOOM OPERATOR HELPER procedure are i n the results section. BASIC METABOLIC PANEL Routine 03/20/2019 12:43 AM Results for this (7) NEEDLE LOOM OPERATOR HELPER procedure are i n the results section. CBC W/PLT COUNT & AUTO Routine 03/20/2019 12:43 AM Results for this DIFFERENTIAL NEEDLE LOOM OPERATOR HELPER procedure are i n the results section. ECG 12-LEAD Routine 03/20/2019 12:29 AM NEEDLE LOOM OPERATOR HELPER Procedure Note - Interface, External Ris In - 03/20/2019 5:19 AM NEEDLE LOOM OPERATOR HELPER Ventricular Rate 66 BPM Atrial Rate 66 BPM P-R Interval 180 ms QRS Duration 116 ms Q-T Interval 460 ms QTC Calculation(Bazett) 482 ms P [place] 45 degrees R [place] 23 degrees T [place] 170 degrees Normal sinus rhythm Incomplete left bundle branc h block ST & T wave abnormality, con tractor operator lateral ischemia Prolonged QT Abnormal ECG When compared with ECG of 06:27, Incomplete left bundle branc h block is now Present ECG 12-LEAD Routine 03/20/2019 12:29 AM NEEDLE LOOM OPERATOR HELPER Resu lts for this procedure are i n the results section . RHYTHM STRIP - SCAN 02/06/2019 11:22 AM NEEDLE LOOM OPERATOR HELPER REPORT OF PROCEDURE - 02/01/2019 9:00 AM NEEDLE LOOM OPERATOR HELPER ENDOSCOPY SCAN RHYTHM STRIP - SCAN 02/01/2019 9:00 AM NEEDLE LOOM OPERATOR HELPER POCT-GLUCOSE METER Routine 01/30/2019 9:05 AM NEEDLE LOOM OPERATOR HELPER Results for this procedure are i n the results section . ECG 12-LEAD Routine 01/30/2019 6:27 AM NEEDLE LOOM OPERATOR HELPER Resu lts for this procedure are i n the results section . CBC W/PLT COUNT & AUTO Routine 01/30/2019 5:56 AM NEEDLE LOOM OPERATOR HELPER Results for this DIFFERENTIAL procedure are i n the results section . URIC ACID Routine 01/30/2019 5:56 AM NEEDLE LOOM OPERATOR HELPER Resu lts for this procedure are i n the results section . PHOSPHORUS Routine 01/30/2019 5:56 AM NEEDLE LOOM OPERATOR HELPER Resu lts for this procedure are i n the results section . MAGNESIUM Routine 01/30/2019 5:56 AM NEEDLE LOOM OPERATOR HELPER Resu lts for this procedure are i n the results section . CBC W/PLT COUNT & AUTO Routine 01/30/2019 5:56 AM NEEDLE LOOM OPERATOR HELPER Results for this DIFFERENTIAL procedure are i n the results section . CALCIUM, IONIZED Routine 01/30/2019 5:56 AM NEEDLE LOOM OPERATOR HELPER Results for this procedure are i n the results section . B-TYPE NATRIURETIC FACTOR Routine 01/30/2019 5:56 AM NEEDLE LOOM OPERATOR HELPER Results for this (BNP) procedure are i n the results section . BASIC METABOLIC PANEL (7) Routine 01/30/2019 5:56 AM NEEDLE LOOM OPERATOR HELPER Results for this procedure are i n the results section . POCT-GLUCOSE METER Routine 01/29/2019 9:09 PM NEEDLE LOOM OPERATOR HELPER Results for this procedure are i n the results section . POCT-GLUCOSE METER Routine 01/29/2019 5:02 PM NEEDLE LOOM OPERATOR HELPER Results for this procedure are i n the results section . PROTEIN, RANDOM URINE Routine 01/29/2019 2:24 PM NEEDLE LOOM OPERATOR HELPER Results for this procedure are i n the results section . URINALYSIS W/ MICROSCOPIC Routine 01/29/2019 2:24 PM NEEDLE LOOM OPERATOR HELPER Results for this procedure are i n the results section . CREATININE, RANDOM URINE Routine 01/29/2019 2:24 PM NEEDLE LOOM OPERATOR HELPER Results for this procedure are i n the results section . SODIUM, RANDOM URINE Routine 01/29/2019 2:24 PM NEEDLE LOOM OPERATOR HELPER Results for this procedure are i n the results section . PHOSPHORUS RHETT 01/29/2019 1:24 PM NEEDLE LOOM OPERATOR HELPER Resu lts for this procedure are i n the results section . MAGNESIUM RHETT 01/29/2019 1:24 PM NEEDLE LOOM OPERATOR HELPER Resu lts for this procedure are i n the results section . BASIC METABOLIC PANEL (7) RHETT 01/29/2019 1:24 PM NEEDLE LOOM OPERATOR HELPER Results for this procedure are i n the results section . XR CHEST 1 VIEW Routine 01/29/2019 1:14 PM NEEDLE LOOM OPERATOR HELPER R esults for this PORTABLE/BEDSIDE procedure a re in the results section . POCT-GLUCOSE METER Routine 01/29/2019 11:38 AM NEEDLE LOOM OPERATOR HELPER Results for this procedure are i n the results section . POCT-GLUCOSE METER Routine 01/29/2019 7:45 AM NEEDLE LOOM OPERATOR HELPER Results for this procedure are i n the results section . ECG 12-LEAD Routine 01/29/2019 6:42 AM NEEDLE LOOM OPERATOR HELPER Procedure Note - Interface, External Ris In - 01/29/2019 6:53 AM NEEDLE LOOM OPERATOR HELPER Ventricular Rate 66 BPM Atrial Rate 66 BPM P-R Interval 190 ms QRS Duration 100 ms Q-T Interval 460 ms QTC Calculation(Bazett) 482 ms P [place] 60 degrees R [place] 26 degrees T [place] 128 degrees Normal sinus rhythm Nonspecific T wave abnormali ty Prolonged QT Abnormal ECG When compared with ECG of 22:51, No significant change was fo und ECG 12-LEAD Routine 01/29/2019 6:42 AM Results for this NEEDLE LOOM OPERATOR HELPER procedure are i n the results section. CBC (HEMOGRAM ONLY) Routine 01/29/2019 5:04 AM R esults for this NEEDLE LOOM OPERATOR HELPER procedure are i n the results section. POCT-GLUCOSE METER Routine 01/28/2019 9:56 PM Re sults for this NEEDLE LOOM OPERATOR HELPER procedure are i n the results section. ECHOCARDIOGRAM REPORT - 01/28/2019 9:21 PM SCAN NEEDLE LOOM OPERATOR HELPER C. DIFFICILE GDH TOXIN Routine 01/28/2019 6:41 PM Results for this NEEDLE LOOM OPERATOR HELPER procedure are i n the results section. OCCULT BLOOD, STOOL Routine 01/28/2019 6:40 PM R esults for this NEEDLE LOOM OPERATOR HELPER procedure are i n the results section. POCT-GLUCOSE METER Routine 01/28/2019 11:46 AM Re sults for this NEEDLE LOOM OPERATOR HELPER procedure are i n the results section. 2D ECHO W/ DOPPLER Routine 01/28/2019 11:25 AM Re sults for this (CW/PW/COLOR) NEEDLE LOOM OPERATOR HELPER procedure are in the results section. APTT Routine 01/28/2019 8:48 AM Results for this NEEDLE LOOM OPERATOR HELPER procedure are i n the results section. POCT-GLUCOSE METER Routine 01/28/2019 8:28 AM Re sults for this NEEDLE LOOM OPERATOR HELPER procedure are i n the results section. APTT Routine 01/28/2019 4:28 AM Results for this NEEDLE LOOM OPERATOR HELPER procedure are i n the results section. BASIC METABOLIC PANEL Routine 01/28/2019 4:28 AM Results for this (7) NEEDLE LOOM OPERATOR HELPER procedure are i n the results section. CBC (HEMOGRAM ONLY) Routine 01/28/2019 4:28 AM R esults for this NEEDLE LOOM OPERATOR HELPER procedure are i n the results section. POCT-GLUCOSE METER Routine 01/27/2019 10:00 PM Re sults for this NEEDLE LOOM OPERATOR HELPER procedure are i n the results section. APTT Routine 01/27/2019 9:12 PM Results for this NEEDLE LOOM OPERATOR HELPER procedure are i n the results section. POCT-GLUCOSE METER Routine 01/27/2019 5:39 PM Re sults for this NEEDLE LOOM OPERATOR HELPER procedure are i n the results section. PT/APTT Routine 01/27/2019 4:27 PM Results for this NEEDLE LOOM OPERATOR HELPER procedure are i n the results section. PT/APTT Routine 01/27/2019 12:58 PM Results for this NEEDLE LOOM OPERATOR HELPER procedure are i n the results section. POCT-GLUCOSE METER Routine 01/27/2019 12:35 PM Re sults for this NEEDLE LOOM OPERATOR HELPER procedure are i n the results section. POCT-GLUCOSE METER Routine 01/27/2019 9:31 AM Re sults for this NEEDLE LOOM OPERATOR HELPER procedure are i n the results section. ECG 12-LEAD Routine 01/27/2019 7:06 AM Results for this NEEDLE LOOM OPERATOR HELPER procedure are i n the results section. APTT Routine 01/27/2019 5:55 AM Results for this NEEDLE LOOM OPERATOR HELPER procedure are i n the results section. POCT-GLUCOSE METER Routine 01/27/2019 3:52 AM Re sults for this NEEDLE LOOM OPERATOR HELPER procedure are i n the results section. BASIC METABOLIC PANEL Routine 01/27/2019 3:47 AM Results for this (7) NEEDLE LOOM OPERATOR HELPER procedure are i n the results section. APTT Routine 01/27/2019 3:47 AM Results for this NEEDLE LOOM OPERATOR HELPER procedure are i n the results section. CBC (HEMOGRAM ONLY) Routine 01/27/2019 3:47 AM R esults for this NEEDLE LOOM OPERATOR HELPER procedure are i n the results section. POCT-GLUCOSE METER Routine 01/26/2019 9:23 PM Re sults for this NEEDLE LOOM OPERATOR HELPER procedure are i n the results section. APTT Routine 01/26/2019 6:42 PM Results for this NEEDLE LOOM OPERATOR HELPER procedure are i n the results section. PLATELET COUNT Routine 01/26/2019 6:42 PM Result s for this NEEDLE LOOM OPERATOR HELPER procedure are i n the results section. POCT-GLUCOSE METER Routine 01/26/2019 1:34 PM Re sults for this NEEDLE LOOM OPERATOR HELPER procedure are i n the results section. POCT-GLUCOSE METER Routine 01/26/2019 8:21 AM Re sults for this NEEDLE LOOM OPERATOR HELPER procedure are i n the results section. ECG 12-LEAD Routine 01/26/2019 8:12 AM Results for this NEEDLE LOOM OPERATOR HELPER procedure are i n the results section. POCT-GLUCOSE METER Routine 01/26/2019 5:42 AM Re sults for this NEEDLE LOOM OPERATOR HELPER procedure are i n the results section. CBC (HEMOGRAM ONLY) Routine 01/26/2019 5:34 AM R esults for this NEEDLE LOOM OPERATOR HELPER procedure are i n the results section. TROPONIN I STAT 01/26/2019 5:34 AM Results for this NEEDLE LOOM OPERATOR HELPER procedure are i n the results section. LIPOPROTEIN (A) Routine 01/26/2019 5:34 AM Resul ts for this NEEDLE LOOM OPERATOR HELPER procedure are i n the results section. XR CHEST 1 VIEW Routine 01/25/2019 11:56 PM Resul ts for this PORTABLE/BEDSIDE NEEDLE LOOM OPERATOR HELPER procedure a re in the results section. CBC W/PLT COUNT & AUTO Routine 01/25/2019 11:19 PM Results for this DIFFERENTIAL NEEDLE LOOM OPERATOR HELPER procedure are i n the results section. APTT Routine 01/25/2019 11:19 PM Results for this NEEDLE LOOM OPERATOR HELPER procedure are i n the results section. APTT Routine 01/25/2019 11:19 PM Results for this NEEDLE LOOM OPERATOR HELPER procedure are i n the results section. PROTHROMBIN TIME/INR Routine 01/25/2019 11:19 PM Results for this NEEDLE LOOM OPERATOR HELPER procedure are i n the results section. CBC W/PLT COUNT & AUTO Routine 01/25/2019 11:19 PM Results for this DIFFERENTIAL NEEDLE LOOM OPERATOR HELPER procedure are i n the results section. B-TYPE NATRIURETIC Routine 01/25/2019 11:19 PM Re sults for this FACTOR (BNP) NEEDLE LOOM OPERATOR HELPER procedure are i n the results section. TROPONIN I STAT 01/25/2019 11:19 PM Results for this NEEDLE LOOM OPERATOR HELPER procedure are i n the results section. COMPREHENSIVE METABOLIC Routine 01/25/2019 11:19 PM Results for this PANEL NEEDLE LOOM OPERATOR HELPER procedure are i n the results section. MAGNESIUM Routine 01/25/2019 11:19 PM Results for this NEEDLE LOOM OPERATOR HELPER procedure are i n the results section. ECG 12-LEAD Routine 01/25/2019 10:51 PM Results for this NEEDLE LOOM OPERATOR HELPER procedure are i n the results section. POCT-GLUCOSE METER Routine 01/25/2019 10:10 PM Re sults for this NEEDLE LOOM OPERATOR HELPER procedure are i n the results section. RHYTHM STRIP - SCAN 01/01/2019 11:34 AM NEEDLE LOOM OPERATOR HELPER REPORT OF PROCEDURE - 12/27/2018 7:06 AM ENDOSCOPY SCAN NEEDLE LOOM OPERATOR HELPER CARDIAC CATH REPORT - 12/27/2018 7:06 AM SCAN NEEDLE LOOM OPERATOR HELPER RHYTHM STRIP - SCAN 12/27/2018 7:06 AM NEEDLE LOOM OPERATOR HELPER POCT-GLUCOSE METER Routine 12/25/2018 11:53 AM Re sults for this NEEDLE LOOM OPERATOR HELPER procedure are i n the results section. POCT-GLUCOSE METER Routine 12/25/2018 6:53 AM Re sults for this NEEDLE LOOM OPERATOR HELPER procedure are i n the results section. CALCIUM, IONIZED Routine 12/25/2018 4:14 AM Resu lts for this NEEDLE LOOM OPERATOR HELPER procedure are i n the results section. CBC W/PLT COUNT & AUTO Routine 12/25/2018 4:13 AM Results for this DIFFERENTIAL NEEDLE LOOM OPERATOR HELPER procedure are i n the results section. PHOSPHORUS Routine 12/25/2018 4:13 AM Results for this NEEDLE LOOM OPERATOR HELPER procedure are i n the results section. MAGNESIUM Routine 12/25/2018 4:13 AM Results for this NEEDLE LOOM OPERATOR HELPER procedure are i n the results section. B-TYPE NATRIURETIC Routine 12/25/2018 4:13 AM Re sults for this FACTOR (BNP) NEEDLE LOOM OPERATOR HELPER procedure are i n the results section. CBC W/PLT COUNT & AUTO Routine 12/25/2018 4:13 AM Results for this DIFFERENTIAL NEEDLE LOOM OPERATOR HELPER procedure are i n the results section. BASIC METABOLIC PANEL Routine 12/25/2018 4:13 AM Results for this (7) NEEDLE LOOM OPERATOR HELPER procedure are i n the results section. POCT-GLUCOSE METER Routine 12/24/2018 10:48 PM Re sults for this NEEDLE LOOM OPERATOR HELPER procedure are i n the results section. POCT-ACT Routine 12/24/2018 10:03 PM Results for this NEEDLE LOOM OPERATOR HELPER procedure are i n the results section. POCT-GLUCOSE METER Routine 12/24/2018 8:12 PM Re sults for this NEEDLE LOOM OPERATOR HELPER procedure are i n the results section. POCT-ACT Routine 12/24/2018 5:18 PM Results for this NEEDLE LOOM OPERATOR HELPER procedure are i n the results section. POCT-ACT Routine 12/24/2018 4:51 PM Results for this NEEDLE LOOM OPERATOR HELPER procedure are i n the results section. L CATH & PCI 12/24/2018 2:49 PM Non-STEMI (non-ST NEEDLE LOOM OPERATOR HELPER elevated myocardial infarction) (HCC) POCT-GLUCOSE METER Routine 12/24/2018 12:46 PM Re sults for this NEEDLE LOOM OPERATOR HELPER procedure are i n the results section. POCT-GLUCOSE METER Routine 12/24/2018 8:25 AM Re sults for this NEEDLE LOOM OPERATOR HELPER procedure are i n the results section. APTT Routine 12/24/2018 8:24 AM Results for this NEEDLE LOOM OPERATOR HELPER procedure are i n the results section. APTT Routine 12/24/2018 1:13 AM Results for this NEEDLE LOOM OPERATOR HELPER procedure are i n the results section. COMPREHENSIVE METABOLIC Routine 12/24/2018 1:13 AM Results for this PANEL NEEDLE LOOM OPERATOR HELPER procedure are i n the results section. ECG 12-LEAD Routine 12/23/2018 10:36 PM Results for this NEEDLE LOOM OPERATOR HELPER procedure are i n the results section. POCT-GLUCOSE METER Routine 12/23/2018 5:53 PM Re sults for this NEEDLE LOOM OPERATOR HELPER procedure are i n the results section. APTT Routine 12/23/2018 4:08 PM Results for this NEEDLE LOOM OPERATOR HELPER procedure are i n the results section. POCT-GLUCOSE METER Routine 12/23/2018 12:58 PM Re sults for this NEEDLE LOOM OPERATOR HELPER procedure are i n the results section. POCT-GLUCOSE METER Routine 12/23/2018 8:40 AM Re sults for this NEEDLE LOOM OPERATOR HELPER procedure are i n the results section. CBC W/PLT COUNT & AUTO Routine 12/23/2018 5:20 AM Results for this DIFFERENTIAL NEEDLE LOOM OPERATOR HELPER procedure are i n the results section. TROPONIN I Routine 12/23/2018 5:20 AM Results for this NEEDLE LOOM OPERATOR HELPER procedure are i n the results section. APTT Routine 12/23/2018 5:20 AM Results for this NEEDLE LOOM OPERATOR HELPER procedure are i n the results section. B-TYPE NATRIURETIC Routine 12/23/2018 5:20 AM Re sults for this FACTOR (BNP) NEEDLE LOOM OPERATOR HELPER procedure are i n the results section. CBC W/PLT COUNT & AUTO Routine 12/23/2018 5:20 AM Results for this DIFFERENTIAL NEEDLE LOOM OPERATOR HELPER procedure are i n the results section. PHOSPHORUS Routine 12/23/2018 5:20 AM Results for this NEEDLE LOOM OPERATOR HELPER procedure are i n the results section. MAGNESIUM Routine 12/23/2018 5:20 AM Results for this NEEDLE LOOM OPERATOR HELPER procedure are i n the results section. COMPREHENSIVE METABOLIC Routine 12/23/2018 5:20 AM Results for this PANEL NEEDLE LOOM OPERATOR HELPER procedure are i n the results section. CALCIUM, IONIZED Routine 12/23/2018 5:20 AM Resu lts for this NEEDLE LOOM OPERATOR HELPER procedure are i n the results section. ECG 12-LEAD Routine 12/23/2018 4:44 AM Results for this NEEDLE LOOM OPERATOR HELPER procedure are i n the results section. [...] PCI 11/12/2018 3:58 PM Unstable angina CDT ([facility]) C. DIFFICILE GDH TOXIN Routine 11/12/2018 2:14 [...] 456 ms QTC Calculation(Bazett) 519 ms P [place] 75 degrees R [place] 50 degrees T [place] 44 degrees Normal sinus rhythm Incomplete left [...] 452 ms QTC Calculation(Bazett) 494 ms P [place] 73 degrees R [place] 34 degrees T [place] 92 degrees Normal sinus rhythm Cannot rule out Anterior inf arct , age undetermined Abnormal ECG When compared with ECG of 08:00, Minimal criteria for Anterio r infarct are now Present ST no longer depressed in An terior leads ECG 12-LEAD STAT 11/11/2018 12:12 AM CDT Resu lts for this procedure are in the results section . after 09/20/2018 Results VASCULAR DIAGRAM -SCAN (05/31/2019 12:41 PM [...] (H)Comment: : Notified 70 - 110 mg/dL [facility] RN/MD: TESTED AT [facility]TER [address] [place] [address], [id number]: Deputy Sheriff/Investigator/Learning And Development Coordinator ID = [id number] for LIZ WATSON Specimen Blood Performing Organization Address City/State/Zipcode Phone Number [address] [phone] CENTER EKG-SCANNED (05/29/2019 12:10 PM CDT)Only the most recent of6 resultswithin the time period is included. Narrative Performed At This result has an attachment that is no t available. Platelet Aggregation: Drug Effect (05/29/2019 9:27 AM CDT) Arachadonic Acid 13 (L) 63 - 89 % [facility] ER Interpretation Decreased response to arachi donic acid suggests aspirin-like effect. [facility] Decreased aggregation with A DP which indicates platelet dysfunction that may be due to medication effect, uremia, or other platelet function disorders.Clinical correlation is required. [facility] Pathologist: Talia Villarreal MD [facility] (electronic signature) [facility] Platelets 184 150 - 450 K/CU MM [facility] ER ADP 11 (L) 62 - 100 % [facility] Platelet Rich Plasma 243 200 - 300 k/cu mm [facility] Specimen Blood Narrative Performed At Platelet function studies by aggregation [facility] methodology on samples with platelet count <75,000/CU MM are unreliable; platelet function assessment should not be based on a single test. Deputy Sheriff/Investigator ID - [id number] Performing Organization Address [facility]/Zipcode Phone Number [address] [address] [place] Calcium, Ionized (05/29/2019 4:41 AM CDT)Only the most recent of8 resultswithin the time period is included. Calcium, Ion 1.16 1.12 - 1.27 mmol/L [facility] pH, Blood 7.40 [facility] Specimen Blood Performing Organization Address City/[facility]/Zipcode Phone Number [address] [address] [place] CBC with platelet count + automated diff (05/29/2019 4:41 AM CDT)Only the most recent of15 resultswithin the time period is included. WBC 6.4 3.5 - 10.5 K/L [facility] RBC 3.26 (L) 3.93 - 5.22 M/L [facility] Hemoglobin 10.1 (L) 11.2 - 15.7 GM/DL [facility] Hematocrit 30.3 (L) 34.1 - 44.9 % [facility] MCV 92.9 79.4 - 94.8 fL [facility] MCH 31.0 25.6 - 32.2 pg [facility] MCHC 33.3 32.2 - 35.5 GM/DL [facility] RDW 13.1 11.7 - 14.4 % [facility] Platelets 183 150 - 450 K/CU MM [facility] MPV 9.9 9.4 - 12.3 fL [facility] nRBC 0 0 - 0 /100 WBC [facility] % Neutros 70 % [facility] % Lymphs 19 % [facility] % Monos 9 % [facility] % Eos 1 % [facility] % Baso 1 % [facility] # Neutros 4.47 1.56 - 6.13 K/L [facility] # Lymphs 1.20 1.18 - 3.74 K/L [facility] # Monos 0.59 (H) 0.24 - 0.36 K/L [facility] # Eos 0.08 0.04 - 0.36 K/L [facility] # Baso 0.04 0.01 - 0.08 K/L [facility] Immature Granulocytes-Relative 0 0 - 1 % C HI [facility] Specimen Blood Performing Organization Address City/State/Zipcode Phone Number [facility] [address] [place] [address] CENTER CBC (hemogram only) (05/29/2019 4:41 AM CDT)Only the most recent of10 results within the time period is included. WBC 6.4 3.5 - 10.5 K/L [facility] RBC 3.26 (L) 3.93 - 5.22 M/L [facility] Hemoglobin 10.1 (L) 11.2 - 15.7 GM/DL [facility] Hematocrit 30.3 (L) 34.1 - 44.9 % [facility] MCV 92.9 79.4 - 94.8 fL [facility] MCH 31.0 25.6 - 32.2 pg [facility] MCHC 33.3 32.2 - 35.5 GM/DL [facility] RDW 13.1 11.7 - 14.4 % [facility] Platelets 183 150 - 450 K/CU MM [facility] MPV 9.9 9.4 - 12.3 fL [facility] nRBC 0 0 - 0 /100 WBC [facility] Specimen Blood Performing Organization Address City/[facility] Cent[facility] Phone Number [address] [address] CENTER Uric acid (05/29/2019 4:41 AM CDT)Only the most recent of2 resultswithin the time period is included. Uric Acid 9.0 (H) 2.6 - 7.2 mg/dL [facility] Specimen Blood Narrative Performed At Deputy Sheriff/Investigator ID - [facility] Performing Organization Address [facility] Centercode Phone Number [address] [address] CENTER Phosphorus (05/29/2019 4:41 AM CDT)Only the most recent of9 resultswithin the time period is included. Phosphorus 3.7 2.3 - 4.7 mg/dL [facility] Specimen Blood Narrative Performed At Deputy Sheriff/Investigator ID - [facility] Performing Organization Address City/[facility] Centercode Phone Number [address] [address] CENTER B-type Natriuretic Factor (BNP) (05/29/2019 4:41 AM CDT)Only the most recent of 11 resultswithin the time period is included. BNP 1,228 (H) 0 - 100 pg/mL [facility] Specimen Blood Narrative Performed At Deputy Sheriff/Investigator ID - [facility] Performing Organization Address [facility] Cent[facility]oco Phone Number [address] [address] CENTER Magnesium (05/29/2019 4:41 AM CDT)Only the most recent of13 resultswithin the time period is included. Magnesium 2.1 1.6 - 2.6 mg/dL [facility] Specimen Blood Narrative Performed At Deputy Sheriff/Investigator [facility] Performing Organization Address [facility] Phone Number [address] [address] CENTER Creatine Kinase (CK) (05/29/2019 4:41 AM CDT) Total CK 94 29 - 200 U/L [facility] Specimen Blood Narrative Performed At Deputy Sheriff/Investigator ID - [facility] Performing Organization Address [facility] Phone Number [address] [address] [place] Basic metabolic panel (05/29/2019 4:41 AM CDT)Only the most recent of15 results within the time period is included. Sodium 135 (L) 136 - 145 meq/L [facility] Potassium 3.8 3.5 - 5.1 meq/L [facility] Chloride 98 98 - 107 meq/L [facility] CO2 27 22 - 29 meq/L [facility] BUN 73 (H) 7 - 21 mg/dL [facility] Creatinine 3.31 (H) 0.57 - 1.25 mg/dL [facility] Glucose 269 (H) 70 - 105 mg/dL [facility] Calcium 9.1 8.4 - 10.2 mg/dL [facility] EGFR 13Comment: ESTIMATED GFR IS mL/min/1.73 sq m [facility] NOT ACCURATE CREATININE [facility] CLEARANCE IN PREDICTING GLOMERULAR FILTRATION RATE. ESTIMATED GFR IS NOT APPLICABLE FOR DIALYSIS PATIENTS. Specimen Blood Narrative Performed At Deputy Sheriff/Investigator ID - MELI Ott [facility] CENTER Performing Organization Address City/State/Zipcode Phone Number [facility] [address] [place] [address] CENTER US renal complete (05/29/2019 1:30 AM CDT)Only the most recent of2 results within the time period is included. Specimen Narrative Performed At FINAL REPORT [employer] U/S, RENAL, COMPLETE Comparison 08/02/2018, 03/22/2019 Clinical [...] Date/Time: 05/29/2019 0 3:58:20 Performing Organization Address City/[facility] Cent[facility]ode Phone Number [facility] POC ACTIVATED CLOTTING TIME (05/28/2019 8:28 PM CDT)Only the most recent of17 resultswithin the time period is included. Activated Clotting Time 136Comment: : 74-137 sec [facility] seconds, Baseline: [facility]ED [facility] AT [address], [id number]: Deputy Sheriff/Investigator/Learning And Development Coordinator ID = [id number] for DARIAN SQUIRES Specimen Blood Performing Organization Address [facility]/Zipcode Phone Number [address] [address] CENTER Urinalysis w/Microscopic (05/28/2019 6:20 PM CDT)Only the most recent of5 resultswithin the time period is included. Color, UA Light Yellow [facility] Clarity, UA Clear [facility] Specific [place], UA 1.012 1.001 - 1.035 [facility] pH, UA 6.0 5.0 - 8.0 [facility] Protein, UA 20 mg/dL (A) Negative [facility] Glucose, UA 150 mg/dL (A) Negative [facility] Ketones, UA Negative Negative [facility] Bilirubin, UA Negative Negative [facility] Blood, UA Trace (A) Negative [facility] Nitrite, UA Negative Negative [facility] Leukocytes, UA Negative Negative [facility] Urobilinogen, UA 0.2 0.2 - 1.0 mg/dL [facility] RBC, UA 1 /HPF [facility] WBC, UA <1 /HPF [facility] Bacteria, UA Many [facility] Specimen Source [facility] Specimen Urine Narrative Performed At Deputy Sheriff/Investigator ID - [auto] [facility] Deputy Sheriff/Investigator ID - ny Performing Organization Address City/State/Zipcode Phone Number [facility] [address] [place] [address] CENTER Venous doppler legs bilateral (05/28/2019 5:05 PM CDT) Ejection Fraction [facility] ECHO HEAR TLAB [facility]ON CPACS Specimen Impressions Performed At Right Impression [facility] ECHO HEARTLAB [facility] CPACS 1. There is [...] PV LAB - Lower Extremities DVT Study [facility] ECHO HEARTLAB [facility] Demographics Patient Name SUZAN ARECHIGA Date of Study05/28/2019 CAPRICE BDEO [id number] Visit Number [id number] Gender Female Accession Number [id number] Date of Birth1940 [facility] Number [id number] Physician SonographerSly Shelby RVTInterpreting [...] Name SUZAN ARECHIGA ate of Study 05/28/2019 ESCOBDEO A ge 78 Visit Number [id number] G tomas Female Accession Number [id number] D ate of 1940 Referring [place] Number [id number] Physician Product Safety Tester Sly Shelby T I nterpreting Suhail Stroud [...] are measured in cm Performing Organization Address City/State/Zipcode Phone Number [facility] ECHO HEARTLAB [facility] Sodium, random urine (05/28/2019 12:35 PM CDT)Only the most recent of3 results within the time period is included. Sodium Urine 35 meq/L [facility] Specimen Urine Narrative Performed At Reference Range: No Normals [facility] Deputy Sheriff/Investigator ID - BS Performing Organization Address City/[facility]/Zipcode Phone Number [facility] [address] [place] [address] CENTER Protein, random urine (05/28/2019 12:35 PM CDT)Only the most recent of4 results within the time period is included. Protein, Urine 10 0 - 14 mg/dL [facility] Specimen Urine Narrative Performed At Deputy Sheriff/Investigator ID - BS [facility] Performing Organization Address City/State/Zipcode Phone Number [address] [address] [place] Creatinine, random urine (05/28/2019 12:35 PM CDT)Only the most recent of4 resultswithin the time period is included. Creatinine, Ur 65.1 mg/dL [facility] Specimen Urine Narrative Performed At Reference Range: No Normals [facility] Deputy Sheriff/Investigator ID - BS Performing Organization Address [facility]/Zipcode Phone Number [address] [address] [place] aPTT (05/28/2019 8:11 AM CDT)Only the most recent of32 resultswithin the time period is included. PTT 67.2 (H) 22.5 - 36.0 seconds [facility] Specimen Blood Performing Organization Address [facility] Phone Number [address] [address] [place] Troponin I (05/28/2019 4:20 AM CDT)Only the most recent of16 resultswithin the time period is included. Troponin I 1.06 (HH) 0.00 - 0.03 ng/mL [facility] Specimen Blood Narrative Performed At Troponin I (TnI) levels must be interpreted [facility] in the context of the presenting [...] acidosis, acute neurological disease, and persistent tachyarrhythmia. Deputy Sheriff/Investigator ID - BS Performing Organization Address City/[facility]/Zipcode Phone Number [address] [address] CENTER PT/aPTT (05/27/2019 11:41 PM CDT)Only the most recent of6 resultswithin the time period is included. Protime 13.3 11.9 - 14.2 seconds [facility] INR 1.0 <=5.9 [facility] PTT 25.2 22.5 - 36.0 seconds [facility] Specimen Blood Narrative Performed At Effective 07/18/2018: PT Reference Range [facility] Change New: 11.9-14.2Previous: 11.7-14.7 RECOMMENDED COUMADIN/WARFARIN INR THERAPY RANGES STANDARD DOSE: 2.0-3.0Includes: PROPHYLAXIS for venous thrombosis, systemic embolization; TREATMENT for venous thrombosis and/or pulmonary embolus. HIGH RISK: Target INR is 2.5-3.5 for patients wiht mechanical heart valves. Performing Organization Address City/[facility] Cent[facility]ode Phone Number [address] [address] CENTER Platelet count (05/27/2019 11:22 PM CDT)Only the most recent of2 resultswithin the time period is included. Platelets 209 150 - 450 K/CU MM [facility] Specimen Blood Narrative Performed At Deputy Sheriff/Investigator ID - [id number] [facility] Performing Organization Address City/[facility] Cent[facility]ode Phone Number [facility] [address] [place] [address] CENTER ECG 12 lead (05/27/2019 11:14 PM CDT)Only the most recent of14 resultswithin the time period is included. Specimen Narrative Performed At Ventricular Rate 91 BPM GE MUSE Atrial Rate 91 BPM P-R Interval 184 ms QRS Duration 112 ms Q-T Interval 410 ms QTC Calculation(Bazett) 504 ms P [place] 80 degrees R [place] 53 degrees T [place] 215 degrees Normal sinus rhythm Incomplete left bundle branch block ST depression inferior and anterolateral leads + ST el evation in aVR consider ischemia Prolonged QT Abnormal ECG When compared with ECG of22:06 ST now depressed in Lateral leads ST now elevated in aVR Confirmed by MD PATEL YOCHAI ([id number]) on 05/28/2019 6 :33:47 AM Procedure Note Interface, External Ris In - 05/28/2019 6:33 AM CDT Ventricular Rate 91 BPM Atrial Rate 91 BPM P-R Interval 184 ms QRS Duration 112 ms Q-T Interval 410 ms QTC Calculation(Bazett) 504 ms P [place] 80 degrees R [place] 53 degrees T [place] 215 degrees Normal sinus rhythm Incomplete left bundle branch block ST depression inferior and anterolateral leads + ST elevation in aVR consider ischemia Prolonged QT Abnormal ECG When compared with ECG of 22:06 ST now depressed in Lateral leads ST now elevated in aVR Confirmed by MD PATEL YOCHAI ([id number]) on 05/28/2019 6:33:47 AM Performing Organization Address City/State/Zipcode Phone Number [employer] XR chest 1 view portable / bedside (05/27/2019 11:05 AM CDT)Only the most recent of6 resultswithin the time period is included. Specimen Narrative Performed At FINAL REPORT [employer] RAD, CHEST, 1 VIEW, NON DEPT INDICATION: [...] CATH REPORT - SCAN (03/26/2019 8:41 AM NEEDLE LOOM OPERATOR HELPER) Narrative Performed At This result has an attachment that is no t available. CARDIAC CATH REPORT - SCAN (03/26/2019 8:41 AM NEEDLE LOOM OPERATOR HELPER) Narrative Performed At This result has an attachment that is no t available. Comprehensive metabolic panel (03/23/2019 5:27 AM NEEDLE LOOM OPERATOR HELPER)Only the most recent of8 resultswithin the time period is included. Protein, Total 6.3Comment: Specimen 6.0 - 8.3 gm/dL [facility] slightly hemolyzed [facility] Albumin 3.4 (L)Comment: Specimen 3.5 - 5.0 g/dL [facility] slightly hemolyzed [facility] Alkaline Phosphatase 52 40 - 150 U/L [facility] Total Bilirubin 0.4Comment: Specimen 0.2 - 1.2 mg/dL [facility] slightly hemolyzed [facility] Sodium 140 136 - 145 meq/L [facility] Potassium 4.1Comment: Specimen 3.5 - 5.1 meq/L [facility] slightly hemolyzed [...] Creatinine 2.86 (H)Comment: 0.57 - 1.25 mg/dL [facility] Specimen slightly [facility] hemolyzed Glucose 164 (H) 70 - 105 mg/dL [facility] Calcium 9.0 8.4 - 10.2 mg/dL [facility] AST 27Comment: Specimen 5 - 34 U/L [facility] slightly hemolyzed [facility] EN[facility] ALT 14Comment: Specimen 6 - 55 U/L [facility] slightly hemolyzed [facility] EGFR 16Comment: ESTIMATED GFR mL/min/1.73 sq m [facility] IS NOT ACCURATE [facility] CREATININE CLEARANCE IN PREDICTING GLOMERULAR FILTRATION RATE. ESTIMATED GFR IS NOT APPLICABLE FOR DIALYSIS PATIENTS. Specimen Blood Narrative Performed At Deputy Sheriff/Investigator ID - PIAYA L [facility] CENTER Performing Organization Address City/State/Zipcode Phone Number [facility] [address] [place] [address] CENTER ECHOCARDIOGRAM REPORT - SCAN (03/22/2019 9:20 PM NEEDLE LOOM OPERATOR HELPER) Narrative Performed At This result has an attachment that is no t available. Carotid doppler bilateral (03/22/2019 7:42 PM NEEDLE LOOM OPERATOR HELPER) Ejection Fraction [facility] ECHO HEAR TLAB [facility] Specimen Impressions Performed At Right Impression [facility] ECHO HEARTLAB [facility] CPACS 1. There is [...] Performed At LAB - Carotid Duplex Study [facility] ECHO HEARTLAB [facility] Demographics Patient Name SUZAN ARECHIGA Date of Study03/22/2019 CAPRICE CINDY [id number] Visit Number [id number] Gender Female Accession Number [id number] Date of Birth1940 [facility] Room Number C633 Physician JohnieographApolinar De RVTInterpreting Physician MaximusMD Procedure Type of [...] External Ris In - 03/23/2019 9:28 AM NEEDLE LOOM OPERATOR HELPER PV LAB - Carotid Duplex Study Demographics Patient Name SUZAN ARECHIGA D ate of Study 03/22/2019 ESCOBDEO A ge 78 Visit Number [id number] G tomas Female Accession Number [id number] D ate of 1940 [facility] [id number] Physician Product Safety Tester Isabela De T I nterpreting Suhail Stroud [...] Measurements:ICAPSV/CCAPS V 1.49.ICAEDV/CCAEDV 1.48. Performing Organization Address City/State/[facility] Phone Number [facility] [employer] [facility] 2D Echo W/Doppler(CW/PW/Color) (03/22/2019 2:04 PM NEEDLE LOOM OPERATOR HELPER) Ejection Fraction [facility] ECHO HEAR TLAB [facility] Specimen Narrative Performed At Transthoracic Echocardiography Report (T TE) [facility] [employer] [facility] Demographics Patient Name SUZAN ARECHIGA Date of Study 03/22/2019 ESCOBDEO [id number] GenderFemale Visit Number [id number] [facility] [id number] Room Number C63 3 Number Date of Birth1940 Referring Physician Peyton Choe Age78 year(s) Product Safety Tester Daniel Acosta MD Physician Procedure Type of [...] External Ris In - 03/22/2019 5:25 PM NEEDLE LOOM OPERATOR HELPER Transthoracic Echocardiography Report (TTE) Demographics Patient Name SUZAN ARECHIGA ate of Study 03/22/2019 SARAI G tomas Female Visit Number [id number] R matthias R oom Number [id number] Number [...] T CI: 4.1 l/min/m^2 Performing Organization Address [facility] Phone Number [facility] E[facility] HEARTLAB MKCKESSON [facility]ACS Lipid panel (03/22/2019 2:06 AM NEEDLE LOOM OPERATOR HELPER)Only the most recent of2 resultswithin the time period is included. Triglycerides 102 mg/dL [facility] Cholesterol 161 mg/dL [facility] HDL 40 mg/dL [facility] LDL Calculated 101 mg/dL [facility] Specimen Blood Narrative Performed At Triglyceride Reference Range: [facility] Low Risk <150 Bxmcqxqlml030-330 High Risk 200-499 Very High Risk>=500 Cholesterol Reference Range: Low Risk <200 Lnoasbccym421-678 High Risk>240 HDL Cholesterol Reference Range: Low Risk >=60 High Risk <40 LDL Cholesterol Reference Range: Optimal<100 Near Tlhtdct364-795 Ggatnuwxin158-315 Fgsg403-472 Very High >=190 Deputy Sheriff/Investigator ID - PIAYA L Performing Organization Address [facility] Phone Number [address] [address] CENTER US abdomen complete (03/22/2019 12:10 AM NEEDLE LOOM OPERATOR HELPER) Specimen Narrative Performed At FINAL REPORT [employer] INDICATION: abd pain COMPARISON: Renal ultrasound dated [...] External Ris In - 03/22/2019 1:53 AM NEEDLE LOOM OPERATOR HELPER FINAL REPORT INDICATION: abd pain COMPARISON: Renal [...] 1:50:03 Performing Organization Address City/State/Zipcode Phone Number [employer] CT brain without IV contrast (03/21/2019 4:58 PM NEEDLE LOOM OPERATOR HELPER) Specimen Narrative Performed At FINAL REPORT [employer] CT, BRAIN, WITHOUT CONTRAST INDICATION: Left sided [...] cranial-cervical fusion hardware limits evaluation of the junior automation engineer ior fossa. No intracranial hemorrhage or abnormal [...] recommended for furthe r characterization. Signed: Kavitha Bxo MD Report Verified Date/Time:03/21/2019 17:36:00 Procedure Note Interface, External Ris In - 03/21/2019 5:38 PM NEEDLE LOOM OPERATOR HELPER FINAL REPORT CT, BRAIN, WITHOUT CONTRAST INDICATION: [...] cranial-cervical fusion hardware limits evaluation of the junior automation engineer ior fossa. No intracranial hemorrhage or abnormal [...] 2 views min left (03/21/2019 2:25 PM NEEDLE LOOM OPERATOR HELPER) Specimen Narrative Performed At FINAL REPORT GE [...] MD Report Verified Date/Time:03/21/2019 14:38:21 [facility] Reading Room Procedure Note Interface, External Ris In - 03/21/2019 2:40 PM NEEDLE LOOM OPERATOR HELPER FINAL REPORT RAD, SHOULDER, COMPLETE (MIN 2 [...] Verified Date/Time: 03/21/2019 1 4:38:21 [facility] Reading Room Performing Organization Address City/State/Zipcode Phone Number GE RIS REPORT OF PROCEDURE - ENDOSCOPY URL (03/21/2019 12:27 PM NEEDLE LOOM OPERATOR HELPER) Narrative Performed At This result has an attachment that is no t available. Hemoglobin A1c (03/20/2019 12:43 AM NEEDLE LOOM OPERATOR HELPER)Only the most recent of3 resultswithin the time period is included. Hemoglobin A1C 8.5 (H) 4.3 - 6.1 % [facility] Specimen Blood Performing Organization Address [facility] Phone Number [address] [address] [place] ECHOCARDIOGRAM REPORT - SCAN (01/28/2019 9:21 PM NEEDLE LOOM OPERATOR HELPER) Narrative Performed At This result has an attachment that is no t available. Clostridium difficile [facility] Toxin (01/28/2019 6:41 PM NEEDLE LOOM OPERATOR HELPER)Only the most recent of 2 resultswithin the time period is included. C. Difficle Toxin Negative Negative [facility] C. Difficile [facility] Antigen Positive (A)Comment: C. Negative [facility] difficile present but toxin [facility] not detected. Indicates colonization with non-toxigenic strain or level of toxin below detectable levels. No need for enteric isolation. Treatment is rarely needed (only when strong clinical suspicion for Clostridium difficile infection) Specimen Stool Narrative Performed At Testing performed by [employer] [facility] Assay.For GDH, published sensitivity of the assay is 98.7% compared to cytotoxicity testing.For Toxin AB, published sensitivity is 87.8% and specificity 99.4% compared to cytotoxicity testing. Verification of kit performance was done by the [facility] Microbiology Lab prior to clinical use. Performing Organization Address [facility] Phone Number [address] [phone] [place] Occult blood, stool (01/28/2019 6:40 PM NEEDLE LOOM OPERATOR HELPER) Occult blood Negative Negative [facility] Specimen Stool Performing Organization Address City/[facility]/Zipcode Phone Number [address] [address] [place] Transthoracic 2D echo w/ doppler (cw/pw/color) (01/28/2019 11:25 AM NEEDLE LOOM OPERATOR HELPER) Ejection Fraction [facility] ECHO HEAR TLAB [facility] Specimen Narrative Performed At Transthoracic Echocardiography Report (T TE) [facility] ECHO HEARTLAB [facility] Demographics Patient NameCARRILLORADHASUZAN Date of Study01/28/2019 ESCOBDEO Gender Female Visit [id number] Race Merced lundberg [id number] Number Date of 1940 Referring Physician Age 78 year(s) SonographPauly Dozier [facility] Interpreting Physician XIMENA Cormier Procedure Type [...] External Ris In - 01/28/2019 3:33 PM NEEDLE LOOM OPERATOR HELPER Transthoracic Echocardiography Report (TTE) Demographics Patient Name SUZAN ARECHIGA Date of Study 01/28/2019 SARAI [place] Female Visit Number [id number] Race Room Number 8A11 Number Date of 1940 Refe martining Tramaine bradley Age 78 year(s) Sono suniler Melani Dozier RDCS Inte rpreting Tramaine Cormier [...] T CI: 2.52 l/min/m^2 Performing Organization Address City/[facility] Phone Number [facility] Lipoprotein (a) (01/26/2019 5:34 AM NEEDLE LOOM OPERATOR HELPER) Lipoprotein (a) 57 <75 nmol/L [facility] Specimen Blood Narrative Performed At Performing Lab [facility] EZ [employer] [facility] [address] [address] [place] [address] I Bright BUENO, PhD, ROBY Performing Organization Address [facility] Phone Number [employer] [place] [phone] [facility] [address] [facility] Prothrombin time/INR (01/25/2019 11:19 PM NEEDLE LOOM OPERATOR HELPER) Protime 13.2 11.9 - 14.2 seconds [facility] INR 1.1 <=5.9 [facility] Specimen Blood Narrative Performed At Effective 07/18/2018: PT Reference Range [facility] Change New: 11.9-14.2Previous: 11.7-14.7 RECOMMENDED COUMADIN/WARFARIN INR THERAPY RANGES STANDARD DOSE: 2.0-3.0Includes: PROPHYLAXIS for venous thrombosis, systemic embolization; TREATMENT for venous thrombosis and/or pulmonary embolus. HIGH RISK: Target INR is 2.5-3.5 for patients wiht mechanical heart valves. Prior to initiating heparin Performing Organization Address City/[facility] Phone Number [facility] [address] [place] [address] [place] CARDIAC CATH REPORT - SCAN (12/27/2018 7:06 AM NEEDLE LOOM OPERATOR HELPER) Narrative Performed At This result has an attachment that is no t available. Iron, TIBC, % sat. (without ferritin) (12/22/2018 4:53 AM CDT) Iron 85.0 40.0 - 160.0 ug/dL [facility] TIBC 226 (L) 250 - 450 ug/dL [facility] Iron % Saturation 38 20 - 55 % [facility] Specimen Blood Performing Organization Address City/[facility]/[place] [address] [place] Ferritin (12/22/2018 4:53 AM CDT) Ferritin 195 5 - 275 ng/mL [facility] Specimen Blood Performing Organization Address City/[facility]/[place] [address] [place] Reticulocyte count (12/22/2018 4:52 AM CDT) % Retic 2.0 (H) 0.5 - 1.7 % [facility] Specimen Blood Performing Organization Address [facility] [place] [address] [place] ECHOCARDIOGRAM REPORT - SCAN (12/21/2018 9:21 PM CDT) Narrative Performed At This result has an attachment that is no t available. 2D Echo W/Doppler(CW/PW/Color) (12/21/2018 10:22 AM CDT) Ejection Fraction [facility] Specimen Narrative Performed At Transthoracic Echocardiography Report (T TE) [facility] ECHO HEARTLAB [facility] Demographics Patient Name SUZAN ARECHIGA Date of Study12/21/2018 ESCOBDEO [id number] Gender Female Visit Number [id number] Race [id number] m [id number] [facility] Phys[facility] Age78 year(s) SonographerColin Cutler, RDCS,RVT,RDMS AnalystAlex ZadeInterpreting Kash Carr MD Physician [...] Study 12/21/2018 SARAI Gender Female Visit Number [id number] Race Room [facility] 6105 Number Date of 1940 Referri ivette Palmer S Physici an Age 78 year(s) Sonogra pher Destini Silva, NB, RDCS,RVT,RDMS Case Finisher Nader Finley Interpr eting Kash Carr MD [...] City/State/Zipcode Phone Number [facility] HEART[facility] CRITICAL CARE (12/20/2018 8:19 PM CDT) [...] CDT) Specimen Narrative Performed At FINAL REPORT [employer] PROCEDURE: MYOCARDIAL PERFUSION PET IMAG ING (Rest/Stress) CPT CODE: 61756 INDICATION: Evaluate extent of known CAD , [...] Chest discomfort, nausea, fati crystal (Treatment was [id number] IV). Perfusion: There is an absence of [...] MD Report Verified Date/Time:11/12/2018 15:26:40 Reading Location: [address] Reading Room Procedure Note Interface, External Ris In - 11/12/2018 3:28 PM CDT FINAL REPORT PROCEDURE: MYOCARDIAL PERFUSION PET IMAG ING (Rest/Stress) CPT CODE: 18848 INDICATION: Evaluate extent of known CAD , [...] Chest discomfort, nausea, fati crystal (Treatment was [id number] IV). Perfusion: There is an absence of [...] Verified Date/Time: 11/12/2018 1 5:26:40 Reading Location: [address] [facility] Reading Room Performing Organization Address City/State/Zipcode [...] 1:04:52 PM Confirmed by MD LOZANO JORGE ([id number]) on 11/23/2018 3:0 5:01 PM Procedure Note [...] on 11/12/2018 1:04:52 PM Confirmed by MD MARTA, INDRA ([id number]) on 11/23/2018 3:05:01 PM Performing Organization Address City/State/Zipcode Phone Number [employer] ECHOCARDIOGRAM REPORT - SCAN (11/11/2018 9:20 PM CDT) Narrative Performed At This result has an attachment that is no t available. Transthoracic 2D echo w/ doppler (cw/pw/color) (11/11/2018 1:14 PM CDT) Ejection Fraction [facility] ECHO HEAR TLAB [facility] Specimen Narrative Performed At Transthoracic Echocardiography Report (T TE) [facility] ECHO HEARTLAB [facility] Demographics Patient NameCARRISUZAN MOSES Date of Study11/11/2018 ESCOBDEO Gender Female Visit [id number] Race [place] [id number] Number Date of 1940 [facility] Phys[facility] Age 78 year(s) SonographerRenanian Levi RDCS Case Finisher Amber Kaplan RDCS Interpreting Garry davis Physician [...] 11/11/2018 ESCOBDEO Gend [place] Female Visit Number [id number] Race Room Number 6102 Number Date of 1940 Refe dali bradley Age 78 year(s) Johnieo roxann Sims RDMADHU Case Finisher Amber Kaplan RDCS Inte rpreting Tramaine Cormier [...] T CI: 2.37 l/min/m^2 Performing Organization Address [facility] Phone Number [facility] TSH/T4 if indicated (11/11/2018 12:39 AM CDT) TSH 1.17 0.35 - 4.94 uIU/mL [facility] Specimen Blood Performing Organization Address [facility] Phone Number [address] [address] [place] Hepatic function panel (11/11/2018 12:39 AM CDT) Protein, Total 7.3Comment: Specimen 6.0 - 8.3 gm/dL [facility] slightly hemolyzed [facility] Albumin 3.9Comment: Specimen 3.5 - 5.0 g/dL [facility] slightly hemolyzed [facility] Total Bilirubin 0.5Comment: Specimen 0.2 - 1.2 mg/dL [facility] slightly hemolyzed [facility] Bilirubin, Direct 0.2Comment: Specimen 0.1 - 0.5 mg/dL [facility] slightly hemolyzed [facility] Alkaline Phosphatase 129 40 - 150 U/L [facility] AST 18Comment: Specimen 5 - 34 U/L [facility] slightly hemolyzed [facility] ALT 11Comment: Specimen 6 - 55 U/L [facility] slightly hemolyzed [facility] Specimen Blood Performing Organization Address [facility] Cent[facility]ode Phone Number [address] [address] CENTER after 09/20/2018 Insurance Payer Benefit Plan / Group Subscriber ID Type Phone A ddress [employer] xxxxxxxx Maps Contracted MEDICAID MEDICAID [facility] Medicaid Advance Directives Patient has advance care planning documents, and code status on file. For more information, please contact:[place] [id number] [place], [place] [phone] Code Status Date Activated Date Inactivated Comments [...]
--- OUTSIDE RECORDS SUMMARY | 2019-09-21 11:37 | XMS REPORT | Continuity of Care Document ---
:1940 Author Organization [facility] t Address [address] [place] [address] Dr. [address] [place] [address] Care Team Providers Name Role Phone Marcos Perry Primary Care Physician Unavailable Heidy JEREZ, A Attending Clinician Unavailable Pob, Lab Main Attending Clinician Unavailable Ky JEERZ, A Attending Clinician Unavailable EVELIN MAHMOOD Attending Clinician [...] Attending Clinician Дмитрий CORTES Attending Clinician Unavailable Olman STUART Attending Clinician Unavailable Дмитрий CORTES Admitting Clinician Unavailable JAMAICA BOJORQUEZ Admitting Clinician Unavailable ALEKSANDER BELCHER Admitting Clinician Unavailable PAUL Admitting Clinician Unavailable Olman STUART Admitting Clinician Unavailable Payers Payer Name Policy Policy Number Effective Expiration Source Type Date Date CIGNA HEALTHSPRINGCIGNA xxxxxxxx [facility] MEDICAIDMEDICAID OF xxxxxxxxx [facility] [place] [facility] Problems Condition Condition Condition Status Onset Resolution [...] 00:00: Medical involving involving 00 Cent er [place] coronary coronary artery of artery of [place] heart heart H/O stroke H/O stroke Disease [...] [facility]ukes - and renal and renal 00:00: [facility] disease disease 00 Center with with (congestiv (congestiv e) heart e) heart failure failure Generalize Generalize Disease Active [facility] d anxiety d anxiety 15 [facility] - disorder disorder 00:00: Medica [...] to type 2 to type 2 00:00: [facility] diabetes diabetes 00 Center mellitus mellitus Chronic Chronic Disease Active [facility] systolic systolic 08-20 [facility] - CHF CHF 00:00: Medical (congestiv (congestiv 00 Ce nter e heart e heart failure) failure) CKD CKD Disease Active [facility] (chronic (chronic 08-01 [facility] - kidney kidney 00:00: Medical disease) disease) 00 Center stage 4, stage 4, GFR 15-29 GFR 15-29 ml/min ml/min IDDM IDDM Disease Active [facility] (insulin (insulin 08-01 [facility] - dependent dependent 00:00: [facility] diabetes diabetes 00 Center mellitus) mellitus) NSTEMI s/p NSTEMI s/p Disease Active [facility] Impella Impella 08-01 [facility] - PCI by PCI by 00:00: Me dical Peyton Peyton 00 Center 08/01/18 08/01/18 Unstable Unstable Disease Active [facility] angina angina 6 [facility] - 00:00: Medical 00 Center Mixed Mixed Disease Active 2016-[address] [facility] hyperlipid hyperlipid Amalia kes - emia emia 00:00: Medical 00 Center Poorly-con Poorly-con Disease Active [facility] trolled trolled 06-20 [facility] - hypertensi hypertensi 00:00: Me dical on on 00 Center Cervical Cervical Problem Active [facility] stenosis stenosis [facility] - of spine of spine Memori a l [facility] ent Clinics Other Other Problem Active [facility] osteoporos osteoporos Amalia kes - is is [facility]oria [facility] Stented Stented Problem Active [facility] coronary coronary [facility]ukes - artery artery Memoria l [facility] ent Clinics Proteinuri Proteinuri Problem Active [facility] a, a, Lukes - unspecifie unspecifie Me moria d d l [facility]ics 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 [facility] - [place] Memoria coronary coronary l artery artery Outpati [...] l (severe) (severe) Outpat i ent Clinics half-way half-way Problem Active [facility] current current [facility]ukes [...] left Lukes - knee knee Memoria l [facility]pat[facility] ent Clinics Adult BMI Adult BMI Problem Active [facility] 36.0-36.9 36.0-36.9 Luke s - kg/sq m kg/sq m [facility] Coronary Coronary Problem Active [facility] artery artery [facility] - disease disease Memoria involving involving l [place] [facility] coronary coronary ent artery of artery of Clin ics [place] heart with heart with unstable unstable angina angina pectoris pectoris History of History of Problem Active [facility] cholecyste cholecyste Amalia kes - ctomy ctomy Memoria l [facility] Atrial Atrial Problem Active [facility] flutter, flutter, Lukes - unspecifie unspecifie Me moria d type d type l [facility] NSTEMI NSTEMI Problem Active [facility] (non-ST (non-ST Lukes - elevated elevated Memori a myocardial myocardial l infarction infarction Ou tpati ) ) ent Clinics Gastroesop Gastroesop Problem Active [facility] hageal hageal Lukes - reflux reflux Memoria disease disease l without without Outpati esophagiti esophagiti en t s s Clinics History of Past Illness Condition Condition [...] - Hcl adverse 00:00: Medical reaction 00 Center s Codeine Propensi Active Hives [facility] ty to 611 [facility] - adverse 00:00: Medical reaction 00 [place] s Iodine Propensi Active Anaphylaxis [facility] And ty to 07-31 [facility]ukes - Iodide adverse 00:00: Medical Containi reaction 00 Center s Products Levoflox Propensi Active Tinitus CHI [...] aminophe adverse 00:00: Medical n reaction 00 [place] s iodine DA Active [facility] 07-28 [place] 00:00: Regiona 00 [facility] morphine DA Active [facility] 07-28 [place] 00:00: Regiona [facility] Benadryl Adverse Active Info Not [facility] Reaction Available [facility] - [facility] ALL PAIN Adverse Active Swelling of [facility] NARCOTIC Reaction throat, [facility] - S hands Memoria [facility] CONTRAST Adverse Active Info Not [facility] DYE Reaction Available [facility] - [facility] Amiodaro Adverse Active Info Not [facility] t ne HCl Reaction Available [facility]ukes - Memoria [facility] ent Clinics Levaquin Adverse Active Info Not [facility] Reaction Available [facility] - [facility] Social History Social Habit Start Date Stop Date Quantity Comments Source History SDOH Alcohol [facility] Std Drinks [facility] History SDOH Alcohol [facility] Binge [facility] Sex Assigned [facility] History SDOH Alcohol 2018-11-10 2018-11-[address] [facility] - Frequency 00:00:00 00:00:00 [facility] Center Smoking Status Start Date Stop Date Source Never smoker [facility] edical [place] Medications Ordered Filled Start Stop Current Ordering Indication Dosage Frequency Signature Comments Components Source Medication Medication Date Date Medication? Clinician (SIG) Name Name Ranolazine Ranolazine Yes John [address] [address] ER ER 4-15 Perry [facility] - 00:00: Memoria 00 [facility] Brilinta Brilinta 2020-0 Yes John [address] 4-15 Perry [facility] - 00:00: Memoria 00 l Outpati ent Clinics clopidogrel 2019-0 2020- No 1{tbl} QD Take [address] (PLAVIX) 75 4-08 04-08 tablet by Amalia kes - mg tablet 14:11: 00:00 mouth Medica l 09 :00 daily. [place] insulin 2019-0 Yes 10U QD Inject 10 [facility] degludec 4-08 Units Lukes - (TRESIBA 13:59: subcutaneo Med ical FLEXTOUCH 31 usly every Cent er U-100 SUBQ) morning. ticagrelor 2019-0 Yes 90mg Q.5D Take 1 [facility] (BRILINTA) 4-08 tablet (90 Penny es - 90 mg Tab 00:00: mg total) Med ical tablet 00 by mouth 2 Center (two) times daily. pantoprazol 2019-0 Yes 40mg Take [address] [facility] [facility] e 2-02 tablet (40 Lukes - (PROTONIX) 00:00: mg total) Me dical 40 MG 00 by mouth Center tablet every morning before breakfast. aspirin 81 2019-0 Yes 81mg Take [address] MG chewable 2-01 by mouth Luke s - tablet 12:20: every Medical 17 other day. [place] cholecalcif 2019- Yes 4000U QD Take 4,[address] shun, 1-28 Units by Lukes - vitamin D3, 23:31: mouth Medic al 4,000 unit 01 daily. [place] Tab calcitriol 2018-02 Yes .5ug QD Take 0.[address] (ROCALTROL) 2-06 mcg by Lukes - 0.5 MCG 22:10: mouth Medical capsule 23 daily. [place] metoprolol 2018-02 2020- No 50mg Q.5D Take [address] (LOPRESSOR) 1- 11-04 tablet (50 L ukes - 50 MG 00:00: 23:59 mg total) Medica l tablet 00 :00 by mouth 2 Center (two) times daily. insulin 2018-02 2020- No To use via [facility] lispro - 02- sliding Lukes - (HUMALOG 00:00: 00:00 scale from Id dical MAURISIOPEN 00 :00 4 to 14 Center INSULIN) units 100 unit/mL three InPn times A day.. isosorbide 2018-02- No 30mg QD Take [address] [facility] [...] daily. Medical 00 Center epoetin 2019- No [id number] Inject [address] rubina-epbx 7 02- [...] total) Medic al nebulizer 00 :00 by [place] solution nebulizati on every 6 (six) hours. [...] 00 :00 2 (two) Center times daily. Tradpérez Scott Yes John [address] [facility] 5-14 [...] [facility] - Memoria l [facility] ent [facility] Vitamin D-3 Vitamin D-3 Yes John as [facility] Perry directed [facility]ukes - Memoria l [facility] ent [facility] BD Pen BD Pen Yes John USE [facility] Needle Mini Needle Mini Perry DIRECTED [facility]ukes - U/F U/[facility] ent [facility] Ferrous Ferrous Yes John TAKE 1 [facility] Sulfate Sulfate Perry TABLET BY Penny es - MOUTH Memoria TWICE A l DAY [facility] ent [facility] Bumetanide Bumetanide Yes John TAKE [address] [facility] [place] TABLET BY Lukes - MOUTH Memoria TWICE A l DAY [facility] ent [facility] Metoprolol Metoprolol Yes John [address] Tartrate Tartrate Peryr with food L [facility] ent [facility] Protonix Protonix Yes John [address] [place] mixed with Lukes - apple Memoria juice or l applesauce [facility] ent [facility] Atorvastati Atorvastati Yes John TAKE [address] [facility] n Calcium n Calcium Perry TABLET BY Lukes - MOUTH Memoria EVERY DAY l [facility] ent [facility] Folic Acid Folic Acid Yes John TAKE [address] [facility] [place] TABLET BY Lukes - MOUTH Memoria EVERY DAY l [facility] ent [facility] Calcitriol Calcitriol Yes John TAKE [address] [facility] [place] CAPSULE BY Lukes - MOUTH Memoria EVERY DAY l [facility] ent [facility] Brilinta Brilinta Yes John TAKE [address] [facility] [place] TABLET BY Lukes - MOUTH Memoria TWICE A l DAY [facility] Calcitriol Calcitriol 2019- No John [address] -14 Perry [facility]ukes - 00:00 Memoria :00 [facility] ent [facility] Immunizations Ordered Filled Immunization Date Status Comments [facility] e Immunization Name Name FluAD FluAD 2018-12-[address] [facility] - 00:00:00 [facility] Vital Signs Vital Name Observation Time Observation Value Comments Source Systolic blood 2019-05-29 14:00:00 101 mm[Hg] [facility] Diastolic blood 2019-05-29 14:00:00 47 mm[Hg] [facility] Heart rate 2019-05-29 14:00:00 75 /min [facility] Respiratory rate 2019-05-29 14:00:00 15 /min [facility] Oxygen saturation in 2019-05-29 14:00:00 95 /min [facility] - Arterial blood by Medical Ce nter Pulse oximetry Body temperature 2019-05-29 10:00:00 36.67 Sirisha [facility] Body weight Measured 2019-05-29 04:00:00 84.8 kg [facility] BMI 2019-05-29 04:00:00 35.32 kg/m2 [facility] Body height 2019-05-27 23:00:00 154.9 cm [facility] Procedures Procedure Date / Time Performing Clinician Source Performed VASCULAR DIAGRAM -SCAN 2019-05-31 12:41:14 Provider, Default [facility] CARDIAC CATH REPORT - SCAN 2019-05-31 10:31:07 Provider, [facility] RHYTHM STRIP - SCAN 2019-05-31 10:31:06 Provider, Default [facility] PERIPHERAL VASCULAR REPORT 2019-05-29 21:10:12 Provider, Default [facility] - - SCAN [facility] POCT-GLUCOSE METER 2019-05-29 13:24:00 Manjula Daya [facility] REPORT OF PROCEDURE - 2019-05-29 12:10:57 Provider, [facility] ENDOSCOPY SCAN [facility] REPORT OF PROCEDURE - 2019-05-29 12:10:55 Provider, [facility] ENDOSCOPY SCAN [facility] PLATELET AGGREGATION: DRUG 2019-05-29 09:27:00 Christian Ríos [facility] POCT-GLUCOSE METER 2019-05-29 07:41:00 Daya Fair kit [facility] B-TYPE NATRIURETIC FACTOR 2019-05-29 04:41:00 Nas Minor [facility] (BNP) [facility] CALCIUM, IONIZED 2019-05-29 04:41:00 Nas Minor [facility] MAGNESIUM 2019-05-29 04:41:00 Nas Minor [facility] PHOSPHORUS 2019-05-29 04:41:00 Nas Minor [facility] CREATINE KINASE (CK) 2019-05-29 04:41:00 Nas Minor [facility] URIC ACID 2019-05-29 04:41:00 Nas Minor [facility] CBC (HEMOGRAM ONLY) 2019-05-29 04:41:00 Radha Mahmood [facility] BASIC METABOLIC PANEL (7) 2019-05-29 04:41:00 Delbert Morales [facility] CBC W/PLT COUNT & AUTO 2019-05-29 04:41:00 Delbert Morales [facility] DIFFERENTIAL [facility] US RENAL COMPLETE 2019-05-29 01:30:00 Nas Minor [facility] POCT-GLUCOSE METER 2019-05-28 21:32:00 ManjulaManuelDaya Hymelbaa [facility] POCT-ACT 2019-05-28 20:28:00 ManjulaManuelDaya Hyunna [facility] URINALYSIS W/ MICROSCOPIC 2019-05-28 18:20:00 Nas Minor [facility] POCT-ACT 2019-05-28 18:08:00 [facility] D[facility]PL[facility] LEGS 2019-05-28 17:05:00 Delbert Bentley [facility] BASIC METABOLIC PANEL (7) 2019-05-28 16:19:00 Christian Ríos [facility] CBC (HEMOGRAM ONLY) 2019-05-28 16:19:00 Christian Ríos [facility] POCT-ACT 2019-05-28 16:17:00 Peyton [facility] Medicinesol Choe [facility] POCT-ACT 2019-05-28 14:32:00 Peyton [facility] POCT-ACT 2019-05-28 13:45:00 Peyton, [facility] POCT-ACT 2019-05-28 13:34:00 Peyton [facility] L CATH & PCI 2019-05-28 13:10:00 Peyton [facility] Medicinesol Choe [facility] CREATININE, RANDOM URINE 2019-05-28 12:35:00 Iván [facility] SODIUM, RANDOM URINE 2019-05-28 12:35:00 Iván [facility] PROTEIN, RANDOM URINE 2019-05-28 12:35:00 Iván [facility] POCT-GLUCOSE METER 2019-05-28 12:02:00 Peyton [facility] Medicinesol Choe [facility] POCT-GLUCOSE METER 2019-05-28 09:31:00 [facility] APTT 2019-05-28 08:11:00 [facility] 2019-05-28 06:37[facility]OLIC PANEL (7) 2019-05-28 06:37:00 Delbert Morales [facility] CBC W/PLT COUNT & AUTO 2019-05-28 06:37:00 Delbert Morales [facility] APTT 2019-05-28 06:02:00 Delbert Morales [facility] TROPONIN I 2019-05-28 04:20:00 [facility] 2019-05-27 23:42:00 Jennifer [facility] PT/APTT 2019-05-27 23:41:00 [facility] W/PLT COUNT & AUTO 2019-05-27 23:41:00 [facility]OLIC PANEL (7) 2019-05-27 23:25:00 [facility] TROP[facility]IN I 2019-05-27 23:25:00 [facility] B-TYPE NATRIURETIC FACTOR 2019-05-27 23:24[facility] PLATELET COUNT 2019-05-27 23:22:00 Goodnough, [facility] ECG 12-LEAD 2019-05-27 23:14:56 Jennifer [facility] ECG 12-LEAD 2019-05-27 22:06:53 Unknown, Hl7 Doctor [facility] XR CHEST 1 VIEW 2019-05-27 11:05:00 Jennifer [facility]/BEDSIDE [facility] VASCULAR DIAGRAM -SCAN 2019-03-27 14:02:13 Provider, [facility] RHYTHM STRIP - SCAN 2019-03-26 14:31:23 Provider, [facility] VASCULAR DIAGRAM -SCAN 2019-03-26 08:41:44 Provider, [facility] REPORT OF PROCEDURE - 2019-03-26 08:41:40 Provider, [facility] CARDIAC CATH REPORT - SCAN 2019-03-26 08:41:36 Provider, [facility] CARDIAC CATH REPORT - SCAN 2019-03-26 08:41:35 Provider, [facility] RHYTHM STRIP - SCAN 2019-03-26 08:41:22 Provider, [facility] PERIPHERAL VASCULAR REPORT 2019-03-23 21:20:50 Provider, [facility] POCT-GLUCOSE METER 2019-03-23 11:39:00 Berlin Bojorquez [facility] POCT-GLUCOSE METER 2019-03-23 08:22:00 [place] Bojorquez [facility] COMPREHENSIVE METABOLIC 2019-03-23 05:27:[address] [facility] CBC W/PLT COUNT & AUTO 2019-03-23 03:36:00 Cosmo [facility] POCT-GLUCOSE METER 2019-03-22 21:57:00 [place] Bojorquez [facility] ECHOCARDIOGRAM REPORT - 2019-03-22 21:20:52 Provider, [facility] CAROTID DOPPLER BILATERAL 2019-03-22 19:42:00 Devaughn Herrera [facility] POCT-GLUCOSE METER 2019-03-22 17:18:00 [place] Bojorquez [facility] BASIC METABOLIC PANEL (7) 2019-03-22 15:55:00 [facility] CBC (HEMOGRAM ONLY) 2019-03-22 15:55:00 CecilioMelidap [facility] POCT-GLUCOSE METER 2019-03-22 15:00:00 Berlin Bojorquez [facility] 2D ECHO W/ DOPPLER 2019-03-22 14:04:35 Peyton [facility] (CW/PW/COLOR) [facility] POCT-ACT 2019-03-22 10:59:00 [place] Bojorquez [facility] POCT-ACT 2019-03-22 10:32:00 [place] Bojorquez [facility] L CATH & PCI 2019-03-22 10:18:00 Peyton [facility] POCT-GLUCOSE METER 2019-03-22 07:33:00 [place] Bojorquez [facility] APTT 2019-03-22 02:06:00 Peyton [facility] BASIC METABOLIC PANEL (7) 2019-03-22 02:06:00 [place] Bojorquez [facility] B-TYPE NATRIURETIC FACTOR 2019-03-22 02:06:00 Nas Minor [facility] (BNP) [facility] CALCIUM, IONIZED 2019-03-22 02:06:00 Nas Minor [facility] MAGNESIUM 2019-03-22 02:06:00 Nas Minor [facility] PHOSPHORUS 2019-03-22 02:06:00 Nas Minor [facility] LIPID PANEL 2019-03-22 02:06:00 Devaughn Herrera [facility] CBC W/PLT COUNT & AUTO 2019-03-22 02:06:00 Nas Minor [facility] I [facility] US ABDOMEN COMPLETE 2019-03-22 00:10:00 Mary BethNely [facility] POCT-GLUCOSE METER 2019-03-21 21:24:00 [facility] 2019-03-21 18:57:00 [place] Bojorquez [facility] POCT-GLUCOSE METER 2019-03-21 17:26:00 [place] Bojorquez [facility] ECG 12-LEAD 2019-03-21 17:24:35 Unknown, Hl7 Doctor [facility] CT BRAIN WITHOUT IV 2019-03-21 16:58:00 [place] Bojorquez [facility] TROPONIN I 2019-03-21 15:07:00 Nas Minor [facility] XR SHOULDER LEFT COMPLETE 2019-03-21 14:25:00 [place] Bojorquez [address] POCT-GLUCOSE METER 2019-03-21 12:58:00 [place] Bojorquez [facility] REPORT OF PROCEDURE - 2019-03-21 12:27:13 [facility] UPPER ENDOSCOPY 2019-03-21 12:00:00 Mary BethNely [facility] APTT 2019-03-21 10:36:00 [place] Bojorquez [facility] POCT-GLUCOSE METER 2019-03-21 07:39:00 [place] Bojorquez [facility] APTT 2019-03-21 03:19:00 Spencre Cortes [facility] BASIC METABOLIC PANEL (7) 2019-03-21 02:23:00 [place] Bojorquez [facility] CBC (HEMOGRAM ONLY) 2019-03-21 02:22:00 [place] Bojorquez [facility] POCT-GLUCOSE METER 2019-03-20 21:46:00 [place] Bojorquez [facility] APTT 2019-03-20 19:09:00 [place] Bojorquez [facility] POCT-GLUCOSE METER 2019-03-20 18:20:00 [place] Bojorquez [facility] PROTEIN, RANDOM URINE 2019-03-20 17:57:00 Iván Varghese [facility] CREATININE, RANDOM URINE 2019-03-20 17:57:00 Nas Minor [facility] URINALYSIS W/ MICROSCOPIC 2019-03-20 17:57:00 Nas Minor [facility] XR CHEST 1 VIEW 2019-03-20 15:12:[address] [facility] PORTABLE/BEDSIDE [facility] APTT 2019-03-20 12:19:00 Fredrick Gamez [facility] TROPONIN I 2019-03-20 12:19:00 Felton Cardenas [facility] POCT-GLUCOSE METER 2019-03-20 11:45:00 [place] Bojorquez [facility] POCT-GLUCOSE METER 2019-03-20 07:37:00 [place] Bojorquez [facility] TROPONIN I 2019-03-20 05:54:00 [facility] BASIC METABOLIC PANEL (7) 2019-03-20 00:43:00 Felton Cardenas [facility] MAGNESIUM 2019-03-20 00:43:00 Felton Cardenas makayla [facility] HEMOGLOBIN A1C 2019-03-20 00:43:00 [facility] 2019-03-20 00:43:00 Felton Cardenas makayla [facility] APTT 2019-03-20 00:43:00 [facility] CBC W/PLT COUNT & AUTO 2019-03-20 00:43:00 Felton Cardenas [facility] ECG 12-LEAD 2019-03-20 00:29:38 Unknown, Hl7 [facility] RHYTHM STRIP - SCAN 2019-02-06 11:22:14 Provider, Default [facility] REPORT OF PROCEDURE - 2019-02-01 09:00:28 Provider, Default [facility] ENDOSCOPY SCAN [facility] RHYTHM STRIP - SCAN 2019-02-01 09:00:26 Provider, Default [facility] POCT-GLUCOSE METER 2019-01-30 09:05:00 Romain Mendez [facility] ECG 12-LEAD 2019-01-30 06:27:50 Josué Villagomez [facility] BASIC METABOLIC PANEL (7) 2019-01-30 05:56:00 Nas Minor [facility] B-TYPE NATRIURETIC FACTOR 2019-01-30 05:56:00 Nas Minor [facility] (BNP) [facility] CALCIUM, IONIZED 2019-01-30 05:56:00 Nas Minor [facility] MAGNESIUM 2019-01-30 05:56:00 Nas Minor [facility] PHOSPHORUS 2019-01-30 05:56:00 Nas Minor [facility] URIC ACID 2019-01-30 05:56:00 Nas Minor [facility] CBC W/PLT COUNT & AUTO 2019-01-30 05:56:00 Nas Minor [facility] POCT-GLUCOSE METER 2019-01-29 21:09:00 Romain Mendez [facility] POCT-GLUCOSE METER 2019-01-29 17:02:00 Romain Mendez [facility] SODIUM, RANDOM URINE 2019-01-29 14:24:00 Delbert Barron [facility] CREATININE, RANDOM URINE 2019-01-29 14:24:00 Delbert Barron [facility] URINALYSIS W/ MICROSCOPIC 2019-01-29 14:24:00 Delbert Barron [facility] PROTEIN, RANDOM URINE 2019-01-29 14:24:00 Nas Minor [facility] BASIC METABOLIC PANEL (7) 2019-01-29 13:24:00 Nas Minor [facility] MAGNESIUM 2019-01-29 13:24:00 Nas Minor [facility] PHOSPHORUS 2019-01-29 13:24:00 Nas Minor [facility] XR CHEST 1 VIEW 2019-01-29 13:14:[address] [facility] PORTABLE/BEDSIDE Medical [place] POCT-GLUCOSE METER 2019-01-29 11:38:00 Nealice [facility] POCT-GLUCOSE METER 2019-01-29 07:45:00 Nealice [facility] ECG 12-LEAD 2019-01-29 06:42:02 Unknown, Hl7 Doctor [facility] CBC (HEMOGRAM ONLY) 2019-01-29 05:04:00 Dahlia [facility] [facility] POCT-GLUCOSE METER 2019-01-28 21:56:00 Andrea [facility] ECHOCARDIOGRAM REPORT - 2019-01-28 21:21:26 Provider, Default [facility] I [facility] C. DIFFICILE GDH TOXIN 2019-01-28 18:41:00 [facility]OL 2019-01-28 18:40:00 [facility] POCT-GLUCOSE METER 2019-01-28 11:46:00 [facility] ECHO W/ DOPPLER 2019-01-28 11:25:00 [facility] (CW/PW/COLOR) [facility] APTT 2019-01-28 08:48:00 [facility] POCT-GLUCOSE METER 2019-01-28 08:28:00 [facility] CBC (HEMOGRAM ONLY) 2019-01-28 04:28:00 [facility] BASIC METABOLIC PANEL (7) 2019-01-28 04:28:00 Christian Ríos [facility] APTT 2019-01-28 04:28:00 Dahlia, [facility] POCT-GLUCOSE METER 2019-01-27 22:00:00 Bandeli [facility] APTT 2019-01-27 21:12:[address] [facility] POCT-GLUCOSE METER 2019-01-27 17:39:00 Bandeli [facility] PT/APTT 2019-01-27 16:27:00 Bandealheidi [facility] PT/APTT 2019-01-27 12:58:00 [facility] POCT-GLUCOSE METER 2019-01-27 12:35:00 Bandla [facility] POCT-GLUCOSE METER 2019-01-27 09:31:00 [facility]AD 2019-01-27 07:06:37 Dahlia [facility] APTT 2019-01-27 05:55:00 Dahlia [facility] POCT-GLUCOSE METER 2019-01-27 03:52:00 [facility] CBC (HEMOGRAM ONLY) 2019-01-27 03:47:00 [facility] 2019-01-27 03:47:[address] [facility] BASIC METABOLIC PANEL (7) 2019-01-27 03:47:00 Saadia Anders [facility] POCT-GLUCOSE METER 2019-01-26 21:23:00 [facility] PLATELET COUNT 2019-01-26 18:42:00 Saadia Anders [facility] APTT 2019-01-26 18:42:00 Saadia Anders [facility] POCT-GLUCOSE METER 2019-01-26 13:34:00 Ye [facility] POCT-GLUCOSE METER 2019-01-26 08:21:00 Michell [facility] ECG 12-LEAD 2019-01-26 08:12:06 Dahlia [facility] POCT-GLUCOSE METER 2019-01-26 05:42:00 [facility] LIPOPROTEIN (A) 2019-01-26 05:34:00 Dahlia [facility] TROPONIN I 2019-01-26 05:34:00 [facility] CBC (HEMOGRAM ONLY) 2019-01-26 05:34:00 Dahlia [facility] XR CHEST 1 VIEW 2019-01-25 23:56:00 Dahlia [facility] PORTABLE/BEDSIDE Medical Center MAGNESIUM 2019-01-25 23:19:00 Dahlia [facility] COMPREHENSIVE METABOLIC 2019-01-25 23:19:00 Dahlia [facility] TROPONIN I 2019-01-25 23:19:00 [facility] B-TYPE NATRIURETIC FACTOR 2019-01-25 23:19:00 Dahlia [facility] (BNP) [facility] PROTHROMBIN TIME/INR 2019-01-25 23:19:00 [facility] APTT 2019-01-25 23:19:00 Dahlia [facility] CBC W/PLT COUNT & AUTO 2019-01-25 23:19:00 Dahlia [facility] S [facility] ECG 12-LEAD 2019-01-25 22:51:27 Dahlia [facility] POCT-GLUCOSE METER 2019-01-25 22:10:00 [facility] - SCAN 2019-01-01 11:34:32 Provider, Default [facility] REPORT OF PROCEDURE - 2018-12-27 07:06:43 Provider, Default [facility] ENDOSCOPY SCAN Scanning [facility] CARDIAC CATH REPORT - SCAN 2018-12-27 07:06:36 Provider, Default [facility] RHYTHM STRIP - SCAN 2018-12-27 07:06:27 Provider, Default [facility] POCT-GLUCOSE METER 2018-12-25 11:53:00 Puneet Snider [facility] POCT-GLUCOSE METER 2018-12-25 06:53:00 Puneet Snider [facility] CALCIUM, IONIZED 2018-12-25 04:14:00 Nas [facility] BASIC METABOLIC PANEL (7) 2018-12-25 04:13:00 Nas [facility] B-TYPE NATRIURETIC FACTOR 2018-12-25 04:13:00 Nas Minor [facility] (BNP) [facility] MAGNESIUM 2018-12-25 04:13:00 Nas Minor [facility] PHOSPHORUS 2018-12-25 04:13:00 Nas Minor [facility] CBC W/PLT COUNT & AUTO 2018-12-25 04:13:00 Nas Minor [facility] POCT-GLUCOSE METER 2018-12-24 22:48:00 Paul Puneet [facility] POCT-ACT 2018-12-24 22:03:00 Paul [facility] POCT-GLUCOSE METER 2018-12-24 20:12:00 Puneet Snider [facility] POCT-ACT 2018-12-24 17:18:00 Paul P[facility] POCT-ACT 2018-12-24 16:51:00 Paul P[facility] CATH & PCI 2018-12-24 14:49:00 Spencer Cort[facility] POCT-GLUCOSE METER 2018-12-24 12:46:00 Paul Puneet [facility] POCT-GLUCOSE METER 2018-12-24 08:25:00 Paul Puneet [facility] APTT 2018-12-24 08:24:00 Paul [facility] COMPREHENSIVE METABOLIC 2018-12-24 01:13:00 Cosmo [facility] APTT 2018-12-24 01:13:00 Andrew [facility] ECG 12-LEAD 2018-12-23 22:36:24 Unknown, Hl7 [facility] POCT-GLUCOSE METER 2018-12-23 17:53:00 Paul [facility] APTT 2018-12-23 16:08:00 Andrew [facility] POCT-GLUCOSE METER 2018-12-23 12:58:00 Paul [facility] POCT-GLUCOSE METER 2018-12-23 08:40:00 Paul [facility] CALCIUM, IONIZED 2018-12-23 05:20:00 Cosmo [facility] COMPREHENSIVE METABOLIC 2018-12-23 05:20:00 Cosmo [facility] MAGNESIUM 2018-12-23 05:20:00 [facility] 2018-12-23 05:20:00 [facility] B-TYPE NATRIURETIC FACTOR 2018-12-23 05:20:00 [facility] APTT 2018-12-23 05:20:00 Andrew [facility] TROPONIN I 2018-12-23 05:20:00 Andrew [facility] CBC W/PLT COUNT & AUTO 2018-12-23 05:20:00 [facility] 12-[facility]AD 2018-12-23 04:44:34 Unknown, Hl7 [facility] POCT-GLUCOSE METER 2018-12-22 21:03:00 aPul [facility] APTT 2018-12-22 19:53:00 Andrew [facility] POCT-GLUCOSE METER 2018-12-22 17:20:00 Puneet Snider [facility] APTT 2018-12-22 12:55:00 Delbert Morales [facility] POCT-GLUCOSE METER 2018-12-22 12:53:00 Puneet Snider [facility] POCT-GLUCOSE METER 2018-12-22 08:25:00 Puneet Snider [facility] B-TYPE NATRIURETIC FACTOR 2018-12-22 04:53:00 Iv[facility] (B[facility] CALCIUM, IONIZED 2018-12-22 04:53:00 [facility] IRON, TIBC, % SAT. 2018-12-22 04:53:00 [facility] 2018-12-22 04:53:00 [facility] MAGNESIUM 2018-12-22 04:52:00 [facility] PHOS[facility]US 2018-12-22 04:52:00 Iván [facility] COMPREHENSIVE METABOLIC 2018-12-22 04:52:00 [facility] RETICULOCYTE COUNT 2018-12-22 04:52:00 [facility] HEMOGLOBIN A1C 2018-12-22 04:52:00 Spencer Cortes [facility] TROPONIN I 2018-12-22 04:52:00 Saadia Anders [facility] APTT 2018-12-22 04:52:00 Delbert Morales [facility] CBC W/PLT COUNT & AUTO 2018-12-22 04:52:00 Abel Wilburn [facility] POCT-GLUCOSE METER 2018-12-21 21:54:00 Puneet Snider [facility] ECHOCARDIOGRAM REPORT - 2018-12-21 21:21:27 Provider, Default I [facility] APTT 2018-12-21 20:04:00 Delbert Morales [facility] US RENAL COMPLETE 2018-12-21 19:58:00 Nas [facility] POCT-GLUCOSE METER 2018-12-21 17:28:00 Puneet Snider [facility] APTT 2018-12-21 13:55:00 Delbert Morales [facility] CREATININE, RANDOM URINE 2018-12-21 13:08:00 [facility] PROTEIN, RANDOM URINE 2018-12-21 13:08:00 Iván [facility] SODIUM, RANDOM URINE 2018-12-21 13:08:00 [facility] URINALYSIS W/ MICROSCOPIC 2018-12-21 13:08:00 Nas Minor [facility] TROPONIN I 2018-12-21 11:48:00 Delbert Morales [facility] 2D ECHO W/ DOPPLER 2018-12-21 10:22:[address] [facility] (CW/PW/COLOR) [facility] POCT-GLUCOSE METER 2018-12-21 09:59:00 [facility] PT/APTT 2018-12-21 07:39:00 Papito [facility] APTT 2018-12-21 04:00:00 Delbert Morales [facility] CBC (HEMOGRAM ONLY) 2018-12-21 04:00:00 Delbert Morales [facility] BASIC METABOLIC PANEL (7) 2018-12-21 04:00:00 Delbert Morales [facility] TROPONIN I 2018-12-21 04:00:00 Delbert Morales [facility] TROPONIN I 2018-12-21 00:32:00 Delbert Morales [facility] POCT-GLUCOSE METER 2018-12-21 00:29:00 Lorraine Papito [facility] XR CHEST 1 VIEW 2018-12-20 20:38:00 Papito Augustine [facility]/BEDSIDE [facility] COMPREHENSIVE METABOLIC 2018-12-20 20:33:[address] [facility] TROPONIN I 2018-12-20 20:33:00 Papito [facility] B-TYPE NATRIURETIC FACTOR 2018-12-20 20:33:00 [place] foley [facility] (BNP) [facility] PT/APTT 2018-12-20 20:33:00 Papito Augustine [facility] MAGNESIUM 2018-12-20 20:33:00 [place] foley [facility] CBC W/PLT COUNT & AUTO 2018-12-20 20:33:00 LorrainePapito [facility] CRITICAL CARE 2018-12-20 20:19:22 [place] [facility] ECG 12-LEAD 2018-12-20 20:04:52 [place] [facility] VASCULAR DIAGRAM -SCAN 2018-11-22 12:20:29 Provider, Default [facility] PERMANENT LAB REPORT - 2018-11-14 12:32:13 Provider, [facility] RHYTHM STRIP - SCAN 2018-11-14 12:32:10 Provider, [facility] REPORT OF PROCEDURE - 2018-11-14 12:32:08 Provider, Default [facility] ENDOSCOPY [facility] CARDIAC CATH REPORT - SCAN 2018-11-14 12:32:03 Provider, Default [facility] POCT-GLUCOSE METER 2018-11-13 11:50:00 [facility] POCT-GLUCOSE METER 2018-11-13 09:10:00 Peyton [facility] POCT-GLUCOSE METER 2018-11-13 06:48:00 Peyton [facility] URINALYSIS W/ MICROSCOPIC 2018-11-13 01:25:00 Nas Minor [facility] MAGNESIUM 2018-11-13 01:01:00 Daya Fair [facility] B-TYPE NATRIURETIC FACTOR 2018-11-13 01:01:[address] [facility] (BNP) [facility] PHOSPHORUS 2018-11-13 01:01:00 Nas Minor [facility] CALCIUM, IONIZED 2018-11-13 01:01:00 Cosmo [facility] COMPREHENSIVE METABOLIC 2018-11-13 01:01:[facility] W/PLT COUNT & AUTO 2018-11-13 01:01:00 Cosmo [facility] POCT-ACT 2018-11-13 00:40:00 Peyton, [facility] POCT-ACT 2018-11-12 23:27:00 Peyton [facility] POCT-GLUCOSE METER 2018-11-12 21:31:00 [facility] POCT-ACT 2018-11-12 21:29:00 [facility] POCT-ACT 2018-11-12 17:50:[address] [facility] POCT-ACT 2018-11-12 16:49:[address] [facility] POCT-ACT 2018-11-12 16:11:[address] [facility] L CATH & PCI 2018-11-12 15:58:00 [facility] C. DIFFICILE GDH TOXIN 2018-11-12 14:14:[address] [facility] NM CARDIAC PET PERFUSION 2018-11-12 12:09:00 Peyton [facility] - REST AND/OR STRESS Medical Cente r TREADMILL 2018-11-12 12:06:27 Unknown, Hl7 Doctor YOLY Alejandro [employer] [facility](NON-NUCLEAR Medical Ce nter TREADMILL) ECG 12-LEAD 2018-11-12 10:01:02 Unknown, Hl7 Doctor YOLY Alejandro [facility] APTT 2018-11-12 10:01:00 Peyton [facility] POCT-GLUCOSE METER 2018-11-12 08:34:00 Peyton [facility] LIPID PANEL 2018-11-12 04:18:00 Manjula [facility] HEMOGLOBIN A1C 2018-11-12 04:18:00 Manjula [facility] MAGNESIUM 2018-11-12 04:18:00 Manjula [facility] CALCIUM, IONIZED 2018-11-12 04:18:00 Cosmo [facility] COMPREHENSIVE METABOLIC 2018-11-12 04:18:00 [facility] PHOS[facility]US 2018-11-12 04:18:00 Wilburn [facility] APTT 2018-11-12 04:18:00 Peyton [facility] CBC W/PLT COUNT & AUTO 2018-11-12 04:18:00 [facility] 2018-11-11 22:02:[address] [facility] ECHOCARDIOGRAM REPORT - 2018-11-11 21:20:37 Provider, Default [facility] I [facility] POCT-GLUCOSE METER 2018-11-11 17:08:00 Peyton [facility] APTT 2018-11-11 15:24:[address] [facility] 2D ECHO W/ DOPPLER 2018-11-11 13:14:57 Delbert Bentley [facility] (CW/PW/COLOR) [facility] POCT-GLUCOSE METER 2018-11-11 12:39:00 Peyton [facility] POCT-GLUCOSE METER 2018-11-11 08:53:00 [facility] TROPONIN I 2018-11-11 08:24:00 Dariana [facility] XR CHEST 1 VIEW 2018-11-11 08:05:00 Delbert Bentley [facility] es - PORTABLE/BEDSIDE [facility] BASIC METABOLIC PANEL (7) 2018-11-11 00:39[facility] 2018-11-11 00:39[facility] MAGN[facility]IUM 2018-11-11 00:39:00 [facility] TSH/FREE T4 IF INDICATED 2018-11-11 00:39:00 Delbert Bentley [facility] TROPONIN I 2018-11-11 00:39:00 [facility] B-TYPE NATRIURETIC FACTOR 2018-11-11 00:39:00 [facility] (BNP) [facility] PT/APTT 2018-11-11 00:39:00 Spencer Cortes [facility] CBC W/PLT COUNT & AUTO 2018-11-11 00:39:00 [facility] ECG 12-LEAD 2018-11-11 00:12:37 Unknown, Hl7 [facility] Encounters Start End Encounter Admission Attending Care Care Encounter Source Date/Time Date/Time Type Type Clinicians Facility Department ID 2019-09-12 2019-09-12 Telephone RICCI Moody [id number] 00:00:00 00:00:00 Clarisse ESTRELLAY [id number] [place] [id number] 2019-09-12 2019-09-12 Letter RICCI Moody [id number] 00:00:00 00:00:00 (Out) Clarisse ESTRELLAY [id number] [place] [id number] 2019-09-09 2019-09-09 Manager Summer Jovanni [facility] [id number] 12:37:08 12:52:08 Visit Lab Main Swathi [id number] [place] [id number] Professio [id number] [address] 2019-09-09 2019-09-09 [facility] [id number] 09:07:00 09:07:00 t [facility] [employer] [facility] [employer] [facility] Medicine Outpati ent Clinics 2019-08-09 2019-08-09 [facility] [id number] 14:57:00 14:57:00 t [employer] [facility] Medicine l Medicine Outpati ent Clinics 2019-07-31 2019-07-31 [facility] [id number] 10:40:00 10:40:00 t [email or web address] [facility] Medicine l Medicine Outpati ent Clinics 2019-07-10 2019-07-10 [facility] [id number] 14:25:00 14:25:00 [facility] [employer] [facility] [place] [facility] Out[facility] ent Clinics 2019-06-28 2019-06-28 [facility] [id number] 10:34:00 10:34:00 t [email or web address] [facility] Medicine Outpati ent Clinics 2019-06-17 2019-06-17 [facility] [id number] 15:21:00 15:21:00 t [email or web address] [facility] Out[facility] Clinics 2019 2019 [facility] [id number] 13:30:00 13:30:00 t [email or web address] [facility] Medicine Out[facility]i ent Clinics 2019-05-31 2019-05-31 [facility] [id number] 16:05:00 16:05:00 t [email or web address] [facility] Medicine l Medicine Outpati ent Clinics 2019-05-30 2019-05-30 [facility] [id number] 11:58:00 11:58:[address] [facility] Medicine Outpati ent Clinics 2019-05-17 2019-05-17 [facility] [id number] 14:51:00 14:51:00 t [email or web address] [facility] Medicine l Medicine Outpati ent Clinics 2019-04-18 2019-04-18 [facility] [id number] 08:45:00 08:45:00 t Henderson Henderson [employer] [facility] Medicine l Medicine Outpati ent Clinics 2019-04-11 2019-04-11 [facility] [id number] 08:26:00 08:26:00 t Henderson Henderson [employer]iv[employer] s - Drive [facility] Medicine l Medicine Outpati ent Clinics 2019-03-26 2019-03-26 [facility] [id number] 10:15:00 10:15:00 t Henderson [employer] [facility] Medicine l Medicine Outpati ent Clinics 2019-03-21 2019-03-21 [facility] [id number] 09:50:00 09:50:00 t Henderson [employer] s - [employer] [facility] [place] [facility] Medicine Outpati ent Clinics 2019-03-18 2019-03-18 [facility] [id number] 13:29:00 13:29:00 t Henderson [employer] [facility] [facility] Medicine Outpati ent Clinics 2019-02-11 2019-02-11 [facility] [id number] 13:30:00 13:30:00 t Henderson [employer] [facility] Medicine l Medicine Outpati ent Clinics 2019-01-23 2019-01-23 [facility] [id number] 10:15:00 10:15:00 t Henderson [employer] [facility] Medicine l Medicine Outpati ent Clinics 2019-01-21 2019-01-21 [facility] [id number] 13:25:00 13:25:00 t Henderson Henderson [employer] [facility] Medicine l Medicine Outpati ent Clinics 2018-12-24 2018-12-24 [facility] [id number] 14:34:00 14:34:00 t Henderson [employer] s - Drive [facility] [place] [facility] Medicine Outpati ent Clinics 2018-12-21 2018-12-21 [facility] [id number] 14:44:00 14:44:00 t Henderson Henderson Epiv[employer] s - Drive [facility] Medicine l Medicine Outpati ent Clinics 2018-12-19 2018-12-19 [facility] [id number] 17:03:00 17:03:00 t Henderson Henderson [employer] s - Drive [facility] Medicine Medicine Outpati ent Clinics 2018-12-03 2018-12-03 [facility] [id number] 14:00:00 14:00:00 t Henderson Henderson [employer]iv[employer] s - Drive [facility] [place] [facility] Medicine Outpati ent Clinics 2018-11-26 2018-11-26 [facility] [id number] 13:30:00 13:30:00 t Henderson Henderson [employer]iv[employer] s - Drive [facility] [place] [facility] Medicine Outpati ent Clinics 2018-10-16 2018-10-16 [facility] [id number] 11:15:00 11:15:00 t Specialty/U Amalia kes - Specialty rology Memori a /Urology Clinic l Clinic Outpati ent Clinics 2018-10-08 2018-10-08 [facility] [id number] 15:33:00 15:33:00 t Henderson Henderson Epivios s - Drive [facility] Medicine Outpati ent Clinics 2018-10-08 2018-10-08 [facility] [id number] 14:00:00 14:00:00 t Henderson [employer] s - Drive [facility] Medicine Outpati ent Clinics 2018-10-08 2018-10-08 [facility] [id number] 14:00:00 14:00:00 t Specialty/U Amalia kes - Specialty rology Memori a /Urology Clinic l Clinic Outpati ent Clinics 2018-09-17 2018-09-17 [facility] [id number] 10:32:00 10:32:00 t Henderson [employer] s - Drive [facility] [place] Medicine Outpati ent Clinics 2018-09-06 2018-09-06 [facility] [id number] 13:30:00 13:30:00 t Henderson [employer] s - Drive [facility] Medicine Outpati ent Clinics 2018-09-04 2018-09-04 [facility] [id number] 14:45:00 14:45:00 t Henderson [employer] s - Drive [facility] Medicine Medicine Outpati ent Clinics 2018-08-07 2018-08-07 [facility] [id number] 08:25:00 08:25:00 t Henderson [employer] s - Drive [facility] Medicine Outpati ent Clinics 2018-06-26 2018-06-26 [facility] [id number] 10:41:00 10:41:00 t Henderson [employer] s - Drive [facility] Medicine Outpati ent Clinics 2018-06-12 2018-06-12 [facility] [id number] 10:30:00 10:30:00 t Henderson [employer] s - Drive [facility] Medicine Outpati ent Clinics 2018 2018 [facility] [id number] 11:54:00 11:54:00 t Henderson [employer] s - Drive [facility] Medicine Outpati ent Clinics 2018-03-14 2018-03-14 [facility] [id number] 15:00:00 15:00:00 t Henderson [employer] [facility] Medicine Outpati ent Clinics 2018-02-21 2018-02-21 [facility] [id number] 13:15:00 13:15:00 t Specialty/U Amalia kes - Specialty rology Memori a /Urology Clinic l Clinic Outpati ent Clinics 2018-02-21 2018-02-21 [facility] [id number] 09:57:00 09:57:00 t Henderson [employer] s - Drive [facility] Medicine Medicine Outpati ent Clinics 2018-02-21 2018-02-21 [facility] [id number] 09:30:00 09:30:00 t Specialty/U Amalia kes - Specialty rology Memori a /Urology Clinic l Clinic Outpati ent Clinics 2018-02-21 2018-02-21 [facility] [id number] 08:32:00 08:32:00 t Henderson [employer] s - Drive [facility] Medicine Outpati ent Clinics 2017-12-06 2017-12-06 [facility] [id number] 14:30:00 14:30:00 t [facility] [place] [place] ent Clinics 2017-11-29 2017-11-29 [facility] [id number] 09:30:00 09:30:00 t [facility] [place] [place] ent Clinics 2017-11-01 2017-11-01 [facility] [id number] 15:00:00 15:00:00 t [facility] [place] [place] [facility] 2017-11-01 2017-11-01 [facility] [id number] [facility] 14:19:00 14:19:00 t [place] [employer] [address] [facility] 2017-11-01 2017-11-01 Outpatient zzzAmy zzzKamala [id number] [facility] 14[facility]02:00 14:02:00 Alex Johnson [facility] 2017-09-06 2017-09-06 [facility] [id number] 10:30:00 10:30:[address] [facility] Medicine Medicine [facility] 2017-07-12 2017-07-12 [facility] [id number] 11:48:00 11:48:[address] [facility] Medicine Outpati ent Clinics 2017-07-03 2017-07-03 [facility] [id number] 10:15:00 10:15:[address] [facility] 2017-06-08 2017-06-08 [facility] [id number] 12:16:00 12:16:[address] [facility] Outpati ent Clinics 2017-05-16 2017-05-16 [facility] [id number] 11:00:00 11:00:00 t Specialty/U Amalia kes - Specialty rology [facility] l Clinic Outpati ent Clinics 2017-05-08 2017-05-08 Outpatient Nathan Evanst 12 [id number] [facility] 10:45:00 10:45:00 t [employer] [address] [facility] l [facility] Results Test Description Test Time Test Comments Results Result Comments Source Platelet Aggregation: Drug Effect 2019-05-29 16:27:00 Test Item Value Reference Range Interpretation Comme nts Arachadonic Acid (test code = 13 % 63-89 L 5993-1) Interpretation (test code = [place] [address]-6) arachidonic acid suggests aspirin-like effect.Decreased aggregation with ADP which indicates platelet dysfunction that may be due to medication effect, uremia, or other platelet function disorders. Clinical correlation is required. Pathologist: (test code = 2621) Talia Villarreal MD (electronic signature) Platelets (test code = 2656) 184 150- 450 K/CU MM ADP (test code = 47587-7) 11 % 62-100 L Platelet Rich Plasma (test code = 243 200- 300 k/cu mm 2134) KAREN (test code = KAREN) Platelet function studies by aggregation methodology on samples with platelet count <75,000/CU MM are unreliable; platelet function assessment should not be based on a single test.Sheriff Detective ID - [id number] Lab Interpretation (test code = Abnormal 45239-5) [facility] DRUG [id number] 16:27:00 Test Item Value Reference Range Interpretation Comments ARACHADONIC ACID 13 % 63-89 L RESULT(BEAKER) (test code = 2138) PLATELET AGG DRUG Decreased response to INTERPRETATION (BEAKER) arachidonic acid (test code = 2408) suggests aspirin-like effect. PLATELET AGG DRUG Decreased aggregation INTERPRETATION (BEAKER) with ADP which (test code = 245689) indicates platelet dysfunction that may be due to medication effect, uremia, or other platelet function disorders. Clinical correlation is required. [id number] Talia Villarreal, (BEAKER) (test code = (electronic 2621) signature) PLATELET COUNT AGG 184 K/CU MM 150-450 (BEAKER) (test code = 2656) PLATELET RICH 243 k/cu mm 200-300 PLASMA(CRISTY) (test code = 2134) Platelet function studies by aggregation methodology on samples with platelet count <75,000/CU MMare unreliable; platelet function assessment should not be based on a single test.Sheriff Detective ID - [id number]-Glucose [id number] 13:37:00 Test Item Value Reference Range Interpretation Comments POC-Glucose Meter (test 298 mg/dL 70-110 H : No tified RN/MD: code = 1538) TESTED AT [facility] [address] [facility], [address]: Sheriff Detective/Techni rebeca ID = [id number] for LIZ WATSON Lab Interpretation (test Abnormal code = 56092-8) [facility] HospitalPOMA[facility]UCOSE [id number] 13:37:00 Test Item Value Reference Range Interpretation Comments POC-GLUCOSE METER 298 mg/dL 70-110 H : Notified RN/: (CRISTY) (test code = TESTED AT [facility] 6720 1538) [facility], [address]: Sheriff Detective/Techni rebeca ID = [id number] for LIZ PRIEST Venous doppler legs [id number] 08:20:35Ejection FractionSLEH ECHO HEARTLAB MKCKESSON CPACSRight Impression1. [...] Name HENRIQUE ARECHIGA Date of Study 05/28/2019 DARCIOBDEO Age 78 Visit Number [id number] Gender Female Accession Number [id number] Date of 1940 Referring Peyton Choe Room Number 6218 Physician Senior Construction Manager Sly Shelby [facility] Interpreting Brandi Camara Physician ProcedureType of [...] cm/s ; Diameters are [facility] POCT-GLUCOSE [id number] 07:54:00 Test Item Value Reference Range Interpretation Comments POC-GLUCOSE METER 270 mg/dL 70-110 H : TESTED A T [facility] 6720 (BEAKER) (test code = [place], 1538) [address]: Sheriff Detective/Techni rebeca ID = [id number] for BE LL, BEAULA Calcium, [id number] 05:34:00 Test Item Value Reference Range Interpretation Comments Calcium, Ion (test code = 1993-) 1.16 mmol/L 1.12-1.27 pH, Blood (test code = 78262-9) 7.40 [facility] CenterCALCIUM, [id number] 05:34:00 Test Item Value Reference Range Interpretation Comments CALCIUM IONIZED (BEAKER) (test 1.16 mmol/L 1.12-1.27 code = 698) PH, BLOOD (BEAKER) (test code = 7.40 1810) Basic metabolic [id number] 05:20:00 Test Item Value Reference Range Interpretation [...] Calcium (test code = 9.1 mg/dL 8.4-10.2 76447-7) EGFR (test code = 13 mL/min/1.73 [place] [address]-9) NOT ACCURATE CREATININE CLEARANCE IN PREDICTING GLOMERULAR FILTRATION RATE . ESTIMATED GFR I S NOT APPLICABLE FOR DIALYSIS PATIENTS. KAREN (test code = KAREN) Sheriff Detective ID - MELI M Lab Interpretation Abnormal (test code = 87652-4) [facility] HospitalCreatine Kinase (CK)2019-05-29 05:20:00 Test Item Value Reference Range Interpretation Comments Total CK (test code = 94 U/L 29-200 2157-6) KAREN (test code = KAREN) Sheriff Detective ID - MELI M Lab Interpretation (test Normal code = 14485-3) [facility] HospitalMagnesium2020-04-08 05:20:00 Test Item Value Reference Range Interpretation Comments Magnesium (test code = 2.1 mg/dL 1.6-2.6 36268-8) KAREN (test code = KAREN) Sheriff Detective ID - [facility] Lab Interpretation (test Normal code = 14471-0) [facility] HospitalB-type Natriuretic Factor (BNP)2019-05-29 05:20:00 Test Item Value Reference Range Interpretation Comments BNP (test code = 01394-1) 1228 pg/mL 0-100 H KRAEN (test code = KAREN) Sheriff Detective ID - MELI Lab Interpretation (test Abnormal code = 11501-5) [facility] HospitalPhosphorus2020-04-08 05:20:00 Test Item Value Reference Range Interpretation Comments Phosphorus (test code = 3.7 mg/dL 2.3-4.7 2777-1) KAREN (test code = KAREN) Sheriff Detective ID - MELI Lab Interpretation (test Normal code = 34558-6) [facility] HospitalUric [id number] 05:20:00 Test Item Value Reference Range Interpretation Comments Uric Acid (test code = 9.0 mg/dL 2.6-7.2 H 3084-1) KAREN (test code = KAREN) Sheriff Detective ID - MELI Lab Interpretation (test Abnormal code = 66241-5) [facility] HospitalURIC [id number] 05:20:00 Test Item Value Reference Range Interpretation Comments URIC ACID (BEAKER) (test code = 9.0 mg/dL 2.6-7.2 H 773) Sheriff Detective ID - MELI [id number] 05:20:00 Test Item Value Reference Range Interpretation Comments MAGNESIUM (BEAKER) (test code = 2.1 mg/dL 1.6-2.6 627) Sheriff Detective ID - MELI [id number] 05:20:00 Test Item Value Reference Range Interpretation Comments PHOSPHORUS (BEAKER) (test code = 3.7 mg/dL 2.3-4.7 604) Sheriff Detective ID - MELI MCREATINE KINASE (CK)2019-05-29 05:20:00 Test Item Value Reference Range Interpretation Comments CREATINE KINASE TOTAL (BEAKER) (test 94 U/L 29-200 code = 380) Sheriff Detective ID - MELI MB-TYPE NATRIURETIC FACTOR (BNP)2019-05-29 05:20:00 Test Item Value Reference Range Interpretation Comments B-TYPE NATRIURETIC PEPTIDE 1228 pg/mL 0-100 H (BEAKER) (test code = 700) Sheriff Detective ID - MELI MBASIC METABOLIC [id number] 05:20:00 Test Item Value Reference Range Interpretation [...] S NOT APPLICABLE FOR DIALYSIS PATIEN TS. Sheriff Detective ID - MELI MCBC (hemogram only)2019-05-29 04:59:00 [...] 450 K/CU MM MPV (test code = 82051-6) 9.9 fL 9.4-12.3 nRBC (test code = 413) 0 0- 0 /100 WBC Lab Interpretation (test code = Abnormal 04100-4) [facility] with platelet count + automated [id number] 04:59:00 Test Item Value Reference Range Interpretation [...] 450 K/CU MM MPV (test code = 41017-4) 9.9 fL 9.4-12.3 nRBC (test code = [...] 2801) Lab Interpretation (test code = Abnormal 57459-5) [facility] W/PLT COUNT & AUTO [id number] 04:59:00 Test Item Value Reference Range Interpretation [...] (BEAKER) (test code = 413) U/S, RENAL, [id number] 03:58:00Reason for exam:->AKIShould this be performed at [...] cm cyst isstable in size. Signed: O[place]a [place] Verified Date/Time: 05/29/2019 03:58:20 US renal [id number] 03:58:00Interface, External Ris In - 05/29/2019 4:00 [...] cyst is stable in size. Signed: Ochoa FryeportVerified Date/Time: 05/29/2019 03:58:20 [facility] [id number] 21:44:00 Test Item Value Reference Range Interpretation Comments POC-GLUCOSE METER 230 mg/dL 70-110 H : TESTED A T [facility] 67 (BEAKER) (test [facility] = [facility] [address]: Sheriff Detective/Techni rebeca ID = [id number] for DARIAN SWEENEY POC ACTIVATED CLOTTING [id number] 20:46:00 Test Item Value Reference Range Interpretation Comments Activated Clotting Time 136 sec : 74 -137 seconds, (test code = 441) Baseline: TESTED AT [address], [address]: Sheriff Detective/Techni rebeca ID = [id number] for DARIAN SWEENEY [facility] CenterPOCT-[id number] 20:46:00 Test Item Value Reference Range Interpretation Comments ACTIVATED CLOTTING TIME 136 sec : 74 -137 seconds, (BEAKER) (test code = Baseli ne: TESTED AT [facility]) [facility] [address] [facility], [address]: Sheriff Detective/Techni rebeca ID = [id number] for DARIAN SWEENEY Urinalysis w/Ndacoxpmvqp3433-78-67 18:58:00 Test Item Value Reference Range Interpretation Comments Color, UA (test code = Light Yellow 5778-6) Clarity, UA (test code = Clear 5767-9) Specific Haiku, UA (test 1.012 1.001-1.035 code = 5811-5) pH, UA (test code = 6.0 5.0-8.0 5803-2) Protein, UA (test code = 20 mg/dL Negative A 75034-9) Glucose, UA (test code = 150 mg/dL Negative A 365) Ketones, UA (test code = Negative Negative 2514-8) Bilirubin, UA (test code = Negative Negative 09083-1) Blood, UA (test code = Trace Negative A 62368-8) Nitrite, UA (test code = Negative Negative 5802-4) Leukocytes, UA (test code Negative Negative = 5799-2) Urobilinogen, UA (test 0.2 mg/dL 0.2-1 code = 56697-3) RBC, UA (test code = 1 /HPF 91321-2) WBC, UA (test code = <1 /HPF 5821-4) Bacteria, UA (test code = Many 23196-5) Specimen Source (test code = 2795) KAREN (test code = KAREN) Sheriff Detective ID - [auto]Sheriff Detective ID - ny Lab Interpretation (test Abnormal code = 96556-9) [facility] HospitalURINALYSIS W/ [id number] 18:58:00 Test Item Value Reference Range Interpretation [...] Many 517) SOURCE(BEAKER) (test code = 2795) Sheriff Detective ID - [auto]Sheriff Detective ID - [id number]-[id number] 18:35:00 Test Item Value Reference Range Interpretation Comments ACTIVATED CLOTTING TIME 164 sec : 74 -137 seconds, (BEAKER) (test code = Baseli ne: TESTED AT 441) [facility] [address] [place], [address]: Sheriff Detective/Techni rebeca ID = [id number] for SHONDA HENDRICKS BASIC METABOLIC [id number] 16:41:00 Test Item Value Reference Range Interpretation [...] S NOT APPLICABLE FOR DIALYSIS PATIEN TS. Sheriff Detective ID - [id number]-[id number] 16:33:00 Test Item Value Reference Range Interpretation Comments ACTIVATED CLOTTING TIME 202 sec : 74 -137 seconds, (BEAKER) (test code = Baseli ne: TESTED AT 441) [facility] [address] [place], [address]: Sheriff Detective/Techni rebeca ID = [id number] for SHONDA HENDRICKS CBC (HEMOGRAM ONLY)2019-05-28 16:25:00 [...] WBC 0-0 (BEAKER) (test code = 413) [id number] 14:53:00 Test Item Value Reference Range Interpretation Comments ACTIVATED CLOTTING TIME 246 sec : 74 -137 seconds, (BEAKER) (test code = Baseli ne: TESTED AT 441) [address], [address]: Sheriff Detective/Techni rebeca ID = [id number] for Riley Cuevas [id number] 14:07:00 Test Item Value Reference Range Interpretation Comments ACTIVATED CLOTTING TIME 213 sec : 74 -137 seconds, (BEAKER) (test code = Baseli ne: TESTED AT 441) [address], [address]: Sheriff Detective/Techni rebeca ID = [id number] for Riley Cuevas [id number] 14:07:00 Test Item Value Reference Range Interpretation Comments ACTIVATED CLOTTING TIME 109 sec : 74 -137 seconds, (BEAKER) (test code = Baselheidi ne: TESTED AT 441) [address], [address]: Sheriff Detective/Techni rebeca ID = [id number] for Riley Cuevas Creatinine, random [id number] 13:05:00 Test Item Value Reference Range Interpretation Comments Creatinine, Ur 65.1 mg/dL (test code = 2161-8) KAREN (test code = Reference Range: No KAREN) NormalsOperator ID - BS [facility] HospitalProtein, random [id number] 13:05:00 Test Item Value Reference Range Interpretation Comments Protein, Urine (test code = 10 mg/dL 0-14 2888-6) KAREN (test code = KAREN) Sheriff Detective ID - BS Lab Interpretation (test Normal code = 39163-3) [facility] Centerodium, random [id number] 13:05:00 Test Item Value Reference Range Interpretation Comments Sodium Urine (test 35 meq/L code = 2955-3) KAREN (test code = Reference Range: No KAREN) NormalsOperator ID - BS [facility] CenterCREATININE, RANDOM [id number] 13:05:00 Test Item Value Reference Range Interpretation Comments CREATININE URINE (BEAKER) (test 65.1 mg/dL code = 375) Reference Range: No NormalsOperator ID - BSPROTEIN, RANDOM [id number] 13:05:00 Test Item Value Reference Range Interpretation Comments PROTEIN, URINE (BEAKER) (test code = 10 mg/dL 0-14 1569) Sheriff Detective ID - BSSODIUM, RANDOM [id number] 13:05:00 Test Item Value Reference Range Interpretation Comments SODIUM URINE (BEAKER) (test code = 35 meq/L 243) Reference Range: No NormalsOperator ID - BSPOCT-GLUCOSE [id number] 12:14:00 Test Item Value Reference Range Interpretation Comments POC-GLUCOSE METER 313 mg/dL 70-110 H : TESTED A T [facility] 67 [facility] (test code = [facility], 1538) [address]: Sheriff Detective/Techni rebeca ID = [id number] for SHONDA MORA POCT-GLUCOSE [id number] 09:43:00 Test Item Value Reference Range Interpretation Comments POC-GLUCOSE METER 272 mg/dL 70-110 H : Notified RN/MD: (BEAKER) (test code = TESTED AT [facility] 6720 1538) [facility], [address]: Sheriff Detective/Techni rebeca ID = [id number] for LIZ PRIEST [id number] 09:00:00 Test Item Value Reference Range Interpretation Comments PTT (test code = 99697-3) 67.2 22.5- 36.0 seconds H Lab Interpretation (test code = Abnormal 62964-8) [facility] HospitalAPTT2020-04-07 09:00:00 Test Item Value Reference Range Interpretation Comments PARTIAL THROMBOPLASTIN TIME 67.2 seconds 22.5-36.0 H (BEAKER) (test code = 760) BASIC METABOLIC [id number] 07:07:00 Test Item Value Reference Range Interpretation [...] S NOT APPLICABLE FOR DIALYSIS PATIEN TS. Sheriff Detective ID - [id number] 06:56:00 Test Item Value Reference Range Interpretation [...] = 413) CBC W/PLT COUNT & AUTO [id number] 06:51:00 Test Item Value Reference Range Interpretation [...] (BEAKER) (test code = 2801) ECG 12 [id number] 06:33:54Interface, External Ris In - 05/28/2019 6:33 AM CDTVentricular Rate 91 BPMAtrial Rate 91 BPMP-R Interval 184 msQRS Duration 112 msQ-T Interval 410 msQTC Calculation(Bazett) 504 msP Fleming 80 degreesR Fleming 53 degreesT Fleming 215 degreesNormal sinus rhythmIncomplete left bundle branch blockST depression inferior and anterolateral leads + ST elevation in aVR consider ischemiaProlonged QTAbnormal ECGWhen compared with ECG of 22:06ST now depressed in Lateral leadsST now elevated in aVRConfirmed by MD JORGE, MATHEUS ([id number]) on 05/28/2019 6:33:47 [facility] I 2019-05-28 05:00:00 Test Item Value Reference Range Interpretation Comments Troponin I (test code = 1.06 ng/mL 0-0.03 66084-3) KAREN (test code = KAREN) Troponin I [...] BS Lab Interpretation (test Abnormal code = 48738-7) [facility] [id number] 05:00:00 Test Item Value Reference Range Interpretation [...] failure, acidosis, acute neurological disease, and persistent tachyarrhythmia.Sheriff Detective ID - BSTROPONIN [id number] 00:21:00 Test Item Value Reference Range Interpretation [...] failure, acidosis, acute neurological disease, and persistent tachyarrhythmia.Sheriff Detective ID - BSBASIC METABOLIC PANEL 2019-05-28 00:18:00 [...] S NOT APPLICABLE FOR DIALYSIS PATIEN TS. Sheriff Detective ID - BSB-TYPE NATRIURETIC FACTOR (BNP)2019-05-28 00:13:00 Test Item Value Reference Range Interpretation Comments B-TYPE NATRIURETIC PEPTIDE (BEAKER) 416 pg/mL 0-100 H (test code = 700) Sheriff Detective ID - BSPT/tMQP0964-36-90 23:58:00 Test Item Value Reference Range Interpretation Comments Protime (test code = 13.3 11.9- 14.2 5902-2) seconds INR (test code = 1.0 <=5.9 6301-6) PTT (test code = 25.2 22.5- 36.0 60529-8) seconds KAREN (test code = KAREN) Effective 07/18/2018: PT Reference Range ChangeNew: 11.9-14.2 Previous: 11.7-14.7 RECOMMENDED COUMADIN/WARFARIN INR THERAPY RANGESSTANDARD DOSE: 2.0-3.0 Includes: PROPHYLAXIS for venous thrombosis, systemic embolization; TREATMENT for venous thrombosis and/or pulmonary embolus.HIGH RISK: Target INR is 2.5-3.5 for patients wiht mechanical heart valves. Lab Interpretation Normal (test code = 12448-3) [facility]APTT2020-[facility] 23:58:00 Test Item Value Reference Range Interpretation Comments PARTIAL THROMBOPLASTIN TIME 24.1 seconds 22.5-36.0 (BEAKER) (test code = 760) 6 hours after starting heparin infusion and as indicated per sliding scale PT/[id number] 23:58:00 Test Item Value Reference Range Interpretation [...] is2.5-3.5 for patients wiht mechanical heart valves.Platelet [id number] 23:50:00 Test Item Value Reference Range Interpretation Comments Platelets (test code = 209 150- 450 K/CU MM 777-3) KAREN (test code = KAREN) Sheriff Detective ID - [id number] Lab Interpretation (test Normal code = 93352-7) [facility] W/PLT COUNT & AUTO [id number] 23:50:00 Test Item Value Reference Range Interpretation [...] PERCENT (BEAKER) (test code = 2801) PLATELET [id number] 23:50:00 Test Item Value Reference Range Interpretation Comments PLATELET COUNT (BEAKER) (test 209 K/CU MM 150-450 code = 756) Sheriff Detective ID - [id number], CHEST, 1 VIEW, NON [id number] 23:36:00Reason for exam:->CHEST PAIN, dyspneaShould this be [...] 23:36:18 XR chest 1 view portable / [id number] 23:36:00Interface, External Ris In - 05/27/2019 11:38 [...] Ochoa Fry MDReport Verified Date/Time: 05/27/2019 23:36:18 [facility] 2019-03[facility]23 11:53:00 Test Item Value Reference Range Interpretation Comments POC-GLUCOSE METER 309 mg/dL 70-110 H : TESTED Carli T [facility] 6720 (CRISTY) (test code = [place], 1538) [address]: Sheriff Detective/Techni rebeca ID = [id number] for NOVA PERSAUD Carotid doppler [id number] 09:28:23Ejection FractionSLE ECHO HEARTLAB MKCKESSON CPACSRight Impression1. There [...] Name HENRIQUE ARECHIGA Date of Study 03/22/2019 DARCIOBDEShay Age 78 Visit Number [id number] Gender Female Accession Number [id number] Date of 1940 Referring [facility] Room Number C633 Physician SonographApolinar De T Interpreting Brandi Camara, Physician ProcedureType [...] ! ! ! !+ +----+----+-----+ + + +!Ivon ist CCA !65.9!16.8!60 ! ! ! !+ [...] + + - Additional Measurements:ICAPSV/CCAPSV 1.49.ICAEDV/CCAEDV 1.48.[facility] CenterPOCT-GLUCOSE [id number] 08:34:00 Test Item Value Reference Range Interpretation Comments POC-GLUCOSE METER 209 mg/dL 70-110 H : TESTED A T [facility] 6720 (CRISTY) (test code = JODY [facility], 1538) [address]: Sheriff Detective/Techni rebeca ID = [id number] for NOVA PERSAUD Comprehensive metabolic [id number] 07:27:00 Test Item Value Reference Range Interpretation Comments Protein, Total (test 6.3 6.0- 8.3 gm/dL Speci men slightly code = 2885-2) hemolyzed Albumin (test code = 3.4 g/dL 3.5-5 L Specime n slightly 72676-3) hemolyzed Alkaline Phosphatase 52 U/L 40-150 (test code = 6768-6) Total Bilirubin (test 0.4 mg/dL 0.2-1.2 Specim en slightly code = 1974-2) hemolyzed Sodium (test code = 140 meq/L 920-082 0267-2) Potassium (test code = 4.1 meq/L 3.5-5.1 Speci men slightly 2823-3) hemolyzed Chloride (test code = 102 meq/L 98-107 2074-0) CO2 (test code = 25 meq/L 22-29 2027-9) BUN (test code = 49 mg/dL 7-21 H 3094-0) Creatinine (test code 2.86 mg/dL 0.57-1.25 H Specim en slightly = 2160-0) hemolyzed Glucose (test code = 164 mg/dL 70-105 H 2345-7) Calcium (test code = 9.0 mg/dL 8.4-10.2 82096-7) AST (test code = 27 U/L 5-34 Specimen sl ightly 1920-8) hemolyzed ALT (test code = 14 U/L 6-55 Specimen sl ightly 1742-6) hemolyzed EGFR (test code = 16 mL/min/1.[place] [address]-1) NOT ACCURATE CREATININE CLEARANCE IN PREDICTING GLOMERULAR FILTRATION RATE . ESTIMATED GFR I S NOT APPLICABLE FOR DIALYSIS PATIENTS. KAREN (test code = KAREN) Sheriff Detective ID - PIAYA L Lab Interpretation Abnormal (test code = 36018-3) [facility] HospitalCOMPREHENSIVE METABOLIC [id number] 07:27:00 Test Item Value Reference Range Interpretation [...] S NOT APPLICABLE FOR DIALYSIS PATIEN TS. Sheriff Detective ID - PIAYA LCBC W/PLT COUNT & AUTO [id number] 03:51:00 Test Item Value Reference Range Interpretation [...] PERCENT (BEAKER) (test code = 2801) POCT-GLUCOSE [id number] 22:09:00 Test Item Value Reference Range Interpretation Comments POC-GLUCOSE METER 172 mg/dL 70-110 H : TESTED A T [facility] 6720 (BEAKER) (test code = [facility], 1538) [address]: Sheriff Detective/Techni rebeca ID = [id number] for HAIR ASH POCT-GLUCOSE [id number] 17:30:00 Test Item Value Reference Range Interpretation Comments POC-GLUCOSE METER 284 mg/dL 70-110 H : TESTED A T [facility] 6720 (BEAKER) (test code = [facility], 1538) [address]: Sheriff Detective/Techni rebeca ID = [id number] for NOVA PERSAUD 2D Echo W/Doppler(CW/PW/Color)2019-03-22 17:25:25Ejection FractionSLEH ECHO HEARTLAB MKCKESSON CPACSInterface, External Ris In - 03/22/2019 5:25 PM C STTransthoracic Echocardiography Report (TTE) Demographics Patient Name HENRIQUE ARECHIGA Date of Study 03/22/2019 ESCOBDEO Gender Female Visit Number [id number] Race [id number] Room Number C633 Number Date of 1940 Referring Physician Peyton Choe Age 78 year(s) Senior Construction Manager Daniel hKan Interpreting Raul Acosta MD Physician Procedure Type [...] CO: 6.85 l/min LVOT CI: 4.1 l/min/m^2[facility] METABOLIC [id number] 16:26:00 Test Item Value Reference Range Interpretation [...] S NOT APPLICABLE FOR DIALYSIS PATIEN TS. Sheriff Detective ID - AAHAMIDPOCT-GLUCOSE [id number] 16:16:00 Test Item Value Reference Range Interpretation Comments POC-GLUCOSE METER 233 mg/dL 70-110 H : TESTED A T [facility] 6720 (BEAKER) (test code = [place], 1538) [address]: Sheriff Detective/Techni rebeca ID = [id number] for [facility] CBC (HEMOGRAM ONLY)2019-03-22 16:08:00 [...] WBC 0-0 (BEAKER) (test code = 413) [id number] 11:06:00 Test Item Value Reference Range Interpretation Comments ACTIVATED CLOTTING TIME 263 sec Refe rence Range: (BEAKER) (test code = 74-137 seconds, 441) Baseline/TESTED AT [address] [address] [id number] 10:50:00 Test Item Value Reference Range Interpretation Comments ACTIVATED CLOTTING TIME 263 sec Refe rence Range: (BEAKER) (test code = 74-137 seconds, 441) Baseline/TESTED AT [address] [address] POCT-GLUCOSE [id number] 07:45:00 Test Item Value Reference Range Interpretation Comments POC-GLUCOSE METER 188 mg/dL 70-110 H : TESTED A T [place] [address] (BEAKER) (test code = [facility], 1538) [address]: Sheriff Detective/Techni rebeca ID = [id number] for BRANDI KIMBLE BASIC METABOLIC [id number] 02:49:00 Test Item Value Reference Range Interpretation [...] S NOT APPLICABLE FOR DIALYSIS PATIEN TS. Sheriff Detective STEPHANE Devin MARILU LB-TYPE NATRIURETIC FACTOR (BNP)2019-03-22 02:44:00 Test Item Value Reference Range Interpretation Comments B-TYPE NATRIURETIC PEPTIDE (BEAKER) 815 pg/mL 0-100 H (test code = 700) Sheriff Detective STEPHANE MICHEL LLipid [id number] 02:42:00 Test Item Value Reference Range Interpretation Comments Triglycerides (test 102 mg/dL code = 2571-8) Cholesterol (test code 161 mg/dL = 2093-3) HDL (test code = 40 mg/dL 2085-9) LDL Calculated (test 101 mg/dL code = 50186-2) KAREN (test code = KAREN) Triglyceride Reference Range: Low Risk <150 Borderline 150-199 High Risk 200-499 Very High Risk >=500 Cholesterol Reference Range: Low Risk <200 Borderline 200-239 High Risk >240 HDL Cholesterol Reference Range: Low Risk >=60 High Risk <40 LDL Cholesterol Reference Range: Optimal <100 Near Optimal 100-129 Borderline 130-159 High 160-189 Very High >=190 Sheriff Detective STEPHANE MICHEL [facility] 02:42:00 Test Item Value Reference Range Interpretation Comments PHOSPHORUS (BEAKER) (test code = 4.4 mg/dL 2.3-4.7 604) Sheriff Detective STEPHANE MICHEL [id number] 02:42:00 Test Item Value Reference Range Interpretation Comments MAGNESIUM (BEAKER) (test code = 2.1 mg/dL 1.6-2.6 627) Sheriff Detective STEPHANE Devin MARILU LLIPID [id number] 02:42:00 Test Item Value Reference Range Interpretation [...] Borderline 130-159 High 160-189 Very High >=190 Sheriff Detective ID - [id number] 02:36:00 Test Item Value Reference Range Interpretation Comments PARTIAL THROMBOPLASTIN TIME 85.7 seconds 22.5-36.0 H (BEAKER) (test code = 760) CALCIUM, [id number] 02:33:00 Test Item Value Reference Range Interpretation Comments CALCIUM IONIZED (BEAKER) (test 1.10 mmol/L 1.12-1.27 L code = 698) PH, BLOOD (BEAKER) (test code = 7.40 1810) CBC W/PLT COUNT & AUTO [id number] 02:23:00 Test Item Value Reference Range Interpretation [...] (BEAKER) (test code = 2801) U/S, ABDOMINAL, [id number] 01:50:00Reason for exam:->abd painFINAL REPORT INDICATION: abd [...] MDReport Verified Date/Time: 03/22/2019 01:50:03 US abdomen [id number] 01:50:00Interface, External Ris In - 03/22/2019 1:53 [...] Signed: Socorro Méndez Verified Date/Time: 03/22/2019 01:50:03 [facility] [id number] 21:37:00 Test Item Value Reference Range Interpretation Comments POC-GLUCOSE METER 257 mg/dL 70-110 H : TESTED A T [facility] 6720 (BEAKER) (test code = [facility], 1538) [address]: Sheriff Detective/Techni rebeca ID = [id number] for RAMO BURLESON EMILIO [id number] 19:18:00 Test Item Value Reference Range Interpretation Comments PARTIAL THROMBOPLASTIN TIME 53.5 seconds 22.5-36.0 H (BEAKER) (test code = 760) POCT-GLUCOSE [id number] 17:38:00 Test Item Value Reference Range Interpretation Comments POC-GLUCOSE METER 246 mg/dL 70-110 H : TESTED A T [facility] 6720 (BEAKER) (test code = [facility], 1538) [address]: Sheriff Detective/Techni rebeca ID = [id number] for SHY MIRAMONTES CT, BRAIN, WITHOUT [id number] 17:36:00Reason for exam:->Left sided weakness, more so [...] Date/Time: 03/21/2019 17:36:00 CT brain without IV [id number] 17:36:00Interface, External Ris In - 03/21/2019 5:38 [...] Signed: Kavitha Box Verified Date/Time: 03/21/2019 17:36:00 [facility] 2019-03-21 15:50:00 Test Item Value Reference Range Interpretation Comments TROPONIN I (BEAKER) (test code = 0.57 ng/mL 0.00-0.03 [facility]) Troponin I (TnI) levels must be interpreted [...] failure, acidosis, acute neurological disease, and persistent tachyarrhythmia.Sheriff Detective ID - BSRAD, SHOULDER, COMPLETE (MIN 2 VIEWS), [id number] 14:38:00Reason for exam:->shoulder pain with ROMFINAL REPORT [...] MDReport Verified Date/Time: 03/21/2019 14:38:21 Reading Location: [facility] Radiology Reading Room XR shoulder complete 2 views min [id number] 14:38:00 Interface, External Ris In - 03/21/2019 [...] MDReport Verified Date/Time: 03/21/2019 14:38:21 Reading Location: [facility] Radiology [facility] [id number] 13:19:00 Test Item Value Reference Range Interpretation Comments POC-GLUCOSE METER 155 mg/dL 70-110 H : TESTED A T [facility] 6720 (BEAKER) (test code = [facility], 1538) 18[address]: Sheriff Detective/Techni rebeca ID = [id number] for FARIBA CARRILLO [id number] 11:14:00 Test Item Value Reference Range Interpretation Comments PARTIAL THROMBOPLASTIN TIME 108.5 seconds 22.5-36.0 H (BEAKER) (test code = 760) POCT-GLUCOSE [id number] 07:51:00 Test Item Value Reference Range Interpretation Comments POC-GLUCOSE METER 198 mg/dL 70-110 H : TESTED A T [facility] 6720 (BEAKER) (test code = [facility], 1538) 70[address]: Sheriff Detective/Techni rebeca ID = [id number] for SHY MIRAMONTES [id number] 03:52:00 Test Item Value Reference Range Interpretation Comments PARTIAL THROMBOPLASTIN 106.2 seconds 22.5-36.0 H B.no .[id number] ok to TIME (BEAKER) (test released result. code = 760) BASIC METABOLIC [id number] 02:58:00 Test Item Value Reference Range Interpretation [...] S NOT APPLICABLE FOR DIALYSIS PATIEN TS. Sheriff Detective ID - MELI MCBC (HEMOGRAM ONLY)2019-03-21 02:32:00 [...] 0-0 (BEAKER) (test code = 413) POCT-GLUCOSE [id number] 21:58:00 Test Item Value Reference Range Interpretation Comments POC-GLUCOSE METER 281 mg/dL 70-110 H : TESTED A T [facility] 6720 (BEAKER) (test code [facility], = 1538) [address]: Sheriff Detective/Techni rebeca ID = [id number] for WINSOME CHRISTIANSON [id number] 19:51:00 Test Item Value Reference Range Interpretation Comments PARTIAL THROMBOPLASTIN TIME 88.1 seconds 22.5-36.0 H (BEAKER) (test code = 760) CREATININE, RANDOM [id number] 18:56:00 Test Item Value Reference Range Interpretation Comments CREATININE URINE (BEAKER) (test 56.6 mg/dL code = 375) Reference Range: No NormalsOperator ID - BSPROTEIN, RANDOM [id number] 18:56:00 Test Item Value Reference Range Interpretation Comments PROTEIN, URINE (BEAKER) (test code = 11 mg/dL 0-14 1569) Sheriff Detective ID - BSURINALYSIS W/ [id number] 18:48:00 Test Item Value Reference Range Interpretation [...] (BEAKER) 1 /HPF (test code = 516) SOURCE(CRISTY) (test code = 2795) Sheriff Detective ID - [auto]Sheriff Detective ID - nyPOCT-GLUCOSE [id number] 18:32:00 Test Item Value Reference Range Interpretation Comments POC-GLUCOSE METER 190 mg/dL 70-110 H : TESTED A T [facility] 6720 (CRISTY) (test code = [place], 1538) [address]: Sheriff Detective/Techni rebeca ID = [id number] for SHY MIRAMONTES RAD, CHEST, 1 VIEW, NON [id number] 15:28:00Reason for exam:->Fluid statusShould this be performed [...] MDReport Verified Date/Time: 03/20/2019 15:28:46 Reading Location: [facility] Reading Room Electronically signed by: NOEMY STORM M.D. on03/20/2019 03:28 PMTROPONIN [id number] 13:36:00 Test Item Value Reference Range Interpretation Comments TROPONIN I (CRISTY) (test code = 0.78 ng/mL 0.00-0.03 [facility]) Troponin I (TnI) levels must be interpreted [...] failure, acidosis, acute neurological disease, and persistent tachyarrhythmia.Sheriff Detective ID - TRISTON [id number] 12:50:00 Test Item Value Reference Range Interpretation Comments PARTIAL THROMBOPLASTIN TIME 65.6 seconds 22.5-36.0 H (CRISTY) (test code = 760) POCT-GLUCOSE [id number] 11:57:00 Test Item Value Reference Range Interpretation Comments POC-GLUCOSE METER 154 mg/dL 70-110 H : TESTED A T [facility] 6720 (BEAKER) (test code = [facility], 1538) [address]: Sheriff Detective/Techni rebeca ID = [id number] for SHY MIRAMONTES Hemoglobin [id number] 09:21:00 Test Item Value Reference Range Interpretation Comments Hemoglobin A1C (test code = 4548-4) 8.5 % 4.3-6.1 H Lab Interpretation (test code = Abnormal 63354-9) [facility] [id number] 09:21:00 Test Item Value Reference Range Interpretation Comments HEMOGLOBIN A1C (BEAKER) (test code = 8.5 % 4.3-6.1 H 368) POCT-GLUCOSE [id number] 07:53:00 Test Item Value Reference Range Interpretation Comments POC-GLUCOSE METER 99 mg/dL 70-110 : TESTED A T [facility] 6720 (BEAKER) (test code = [facility], 1538) 137[address]: Sheriff Detective/Techni rebeca ID = [id number] for KARLEY MANCUSO TROPONIN [id number] 06:40:00 Test Item Value Reference Range Interpretation [...] failure, acidosis, acute neurological disease, and persistent tachyarrhythmia.Sheriff Detective ID - KENNTROPONIN [id number] 01:53:00 Test Item Value Reference Range Interpretation [...] failure, acidosis, acute neurological disease, and persistent tachyarrhythmia.Sheriff Detective ID - MICASIC METABOLIC PANEL 2019-03-20 01:52:00 [...] S NOT APPLICABLE FOR DIALYSIS PATIEN TS. Sheriff Detective ID - [id number] 01:25:00 Test Item Value Reference Range Interpretation Comments MAGNESIUM (BEAKER) (test code = 2.2 mg/dL 1.6-2.6 627) Sheriff Detective ID - [id number] 01:23:00 Test Item Value Reference Range Interpretation Comments PARTIAL THROMBOPLASTIN 109.9 seconds 22.5-36.0 H B.no .[id number] ok to TIME (BEAKER) (test released result. code = 760) Prior to initiating heparinCBC W/PLT COUNT & AUTO [id number] 01:02:00 Test Item Value Reference Range Interpretation [...] (a) (test 57 nmol/L <75 code = 1960402) KAREN (test code = KAREN) Performing Lab [facility] [address] [place] [address] I Bright BUENO, PhD, ROBY [facility]PO[facility] [id number] 09:17:00 Test Item Value Reference Range Interpretation Comments POC-GLUCOSE METER 161 mg/dL 70-110 H : TESTED A T [facility] 6720 (BEAKER) (test code = [place], 1538) [address]: Sheriff Detective/Techni rebeca ID = [id number] for DANIELE BAKER BASIC METABOLIC [id number] 07:10:00 Test Item Value Reference Range Interpretation [...] NOT APPLICABLE FOR DIALYSIS PATIEN TS. URIC [id number] 07:07:00 Test Item Value Reference Range Interpretation Comments URIC ACID (BEAKER) (test code = 9.9 mg/dL 2.6-7.2 H 773) [id number] 07:07:00 Test Item Value Reference Range Interpretation Comments MAGNESIUM (BEAKER) (test code = 2.3 mg/dL 1.6-2.6 627) [id number] 07:07:00 Test Item Value Reference Range Interpretation Comments PHOSPHORUS (BEAKER) (test code = 3.3 mg/dL 2.3-4.7 604) B-TYPE NATRIURETIC FACTOR (BNP)2019-01-30 06:44:00 Test Item Value Reference Range Interpretation Comments B-TYPE NATRIURETIC PEPTIDE (BEAKER) 365 pg/mL 0-100 H (test code = 700) CALCIUM, [id number] 06:31:00 Test Item Value Reference Range Interpretation Comments CALCIUM IONIZED (BEAKER) (test 1.08 mmol/L 1.12-1.27 L code = 698) PH, BLOOD (BEAKER) (test code = 7.41 1810) CBC W/PLT COUNT & AUTO [id number] 06:17:00 Test Item Value Reference Range Interpretation [...] PERCENT (BEAKER) (test code = 2801) POCT-GLUCOSE [id number] 21:20:00 Test Item Value Reference Range Interpretation Comments POC-GLUCOSE METER 140 mg/dL 70-110 H : TESTED A T [facility] 6720 (BEAKER) (test code = [facility], 1538) [address]: Sheriff Detective/Techni rebeca ID = [id number] for Fatmata Robison CREATININE, RANDOM [id number] 19:07:00 Test Item Value Reference Range Interpretation Comments CREATININE URINE (BEAKER) (test 101.3 mg/dL code = 375) Reference Range: No NormalsPROTEIN, RANDOM [id number] 19:07:00 Test Item Value Reference Range Interpretation Comments PROTEIN, URINE (BEAKER) (test code = 24 mg/dL 0-14 H 1569) SODIUM, RANDOM [id number] 19:07:00 Test Item Value Reference Range Interpretation Comments SODIUM URINE (BEAKER) (test code = 27 meq/L 243) Reference Range: No NormalsPOCT-GLUCOSE [id number] 17:13:00 Test Item Value Reference Range Interpretation Comments POC-GLUCOSE METER 172 mg/dL 70-110 H : TESTED A T [facility] 6720 (BEAKER) (test code = [facility], 1538) [address]: Sheriff Detective/Techni rebeca ID = [id number] for NICOLE SANTOS JOHNATHAN URINALYSIS W/ [id number] 15:46:00 Test Item Value Reference Range Interpretation [...] SOURCE(BEAKER) (test code = 2795) BASIC METABOLIC [id number] 13:57:00 Test Item Value Reference Range Interpretation [...] S NOT APPLICABLE FOR DIALYSIS PATIEN TS. [id number] 13:56:00 Test Item Value Reference Range Interpretation Comments PHOSPHORUS (BEAKER) (test code = 2.6 mg/dL 2.3-4.7 604) [id number] 13:56:00 Test Item Value Reference Range Interpretation Comments MAGNESIUM (BEAKER) (test code = 2.4 mg/dL 1.6-2.6 627) RAD, CHEST, 1 VIEW, NON [id number] 13:55:00Reason for exam:->Fluid statusShould this be performed at the bedside?->YesFINAL REPORT AP chest Comparison exam: 01/25/2019 History provided: Fluid status Heart size magnified by projection. Lungs currently grossly clear, and vascularity normal. Chronicdeformity of the right humeral neck. Signed: Atul Malave MDReport Verified Date/Time: 01/29/2019 13:55:37 Reading Location: [facility] Diagnostic Imaging Reading Room - [facility] 1.310.12 POCT-GLUCOSE [id number] 11:49:00 Test Item Value Reference Range Interpretation Comments POC-GLUCOSE METER 273 mg/dL 70-110 H : TESTED A T [facility] 6720 (BEAKER) (test code = [facility], 1538) [address]: Sheriff Detective/Techni rebeca ID = [id number] for Tatyana Sterling Clostridium difficile GDH [id number] 11:07:00 Test Item Value Reference Range Interpretation Comments C. Difficle Toxin Negative Negative (test code = 7049384945) C. Difficile GDH Positive Negative A C. difficil e Antigen (test code = present but toxin 2687951762) not detected. Indicates colonization wi th non-toxigenic [...] [facility] prior to clinical use. Lab Interpretation Abnormal (test code = 13789-7) [facility] [id number] 11:07:00 Test Item Value Reference Range Interpretation Comments CDT TOXIN (test code Negative Negative = 8571804763) CDT GDH ANTIGEN Positive Negative A C. difficile present but (test code = toxin not detec elva. 1749711548) Indicates colon ization with non-toxige alexis strain or level of tox in below detectable leve ls. No need for enteri c isolation. Sandoval atment is rarely needed ( only when strong clinical suspicion for Clostridium difficile infection) Testing performed by [employer] Rapid [employer] Assay. For GDH, published sensitivity of the assay is 98.7% compared to cytotoxicity testing. For Toxin AB, published sensitivity is 87.8% and specificity 99.4% compared to cytotoxicity testing.Verification of kit performance was done by the [facility] Microbiology Lab prior to clinical use.POCT-GLUCOSE [id number] 07:57:00 Test Item Value Reference Range Interpretation Comments POC-GLUCOSE METER 227 mg/dL 70-110 H : TESTED A T [facility] 6720 (BEAKER) (test code = [facility], 1538) [address]33[address]: Sheriff Detective/Techni rebeca ID = [id number] for Tatyana Sterling CBC (HEMOGRAM ONLY)2019-01-29 05:39:00 [...] (BEAKER) (test code = 413) Occult blood, [id number] 22:07:00 Test Item Value Reference Range Interpretation Comments Occult blood (test code = 2335-8) Negative Negative Lab Interpretation (test code = Normal 46898-6) [facility] [id number] 22:07:00 Test Item Value Reference Range Interpretation Comments POC-GLUCOSE METER 229 mg/dL 70-110 H : TESTED A T [facility] 6720 (BEAKER) (test code = [place], 1538) [address]: Sheriff Detective/Techni rebeca ID = [id number] for FI TE, SELINA OCCULT BLOOD, [id number] 22:07:00 Test Item Value Reference Range Interpretation Comments FECAL OCCULT BLOOD (BEAKER) (test Negative Negative code = 618) Transthoracic 2D echo w/ doppler (cw/pw/color)2019-01-28 15:33:30Ejection FractionSLEH ECHO HEARTLAB MKCKESSON CPACSInterface, External Ris In - 01/28/2019 3:33 PM CSTTransthoracic Echocardiography Report (TTE) Demographics Patient Name HENRIQUE ARECHIGA Date of Study 01/28/2019 ESCOBDEO Gender Female Visit Number [id number] Race Room Number 8A11 Number Date of 1940 Referring Physician Age 78 year(s) Senior Construction Manager Melani Dozier [facility] Interpreting Garry Goodwin Physician Procedure Type of [...] LVOT CO: 4.43 l/min LVOT CI: 2.52 l/min/m^2CSutter [facility] HospitalPO[facility]UCOSE METER 2019-01-28 12:00:00 Test Item Value Reference Range Interpretation Comments POC-GLUCOSE METER 208 mg/dL 70-110 H : Notified RN/MD: (CRISTY) (test code = TESTED AT [facility] 1015 8055) [facility], [address]: Sheriff Detective/Techni rebeca ID = [id number] for Veena Omalley [id number] 09:10:00 Test Item Value Reference Range Interpretation Comments PARTIAL THROMBOPLASTIN TIME 77.4 seconds 22.5-36.0 H (CRISTY) (test code = 760) POCT-GLUCOSE [id number] 08:40:00 Test Item Value Reference Range Interpretation Comments POC-GLUCOSE METER 153 mg/dL 70-110 H : TESTED A T [facility] 6720 (BEAKER) (test code [facility], = 1538) [address]: Sheriff Detective/Techni rebeca ID = [id number] for JANETH OTT BASIC METABOLIC [id number] 05:15:00 Test Item Value Reference Range Interpretation [...] I S NOT APPLICABLE FOR DIALYSIS PATIEN [id number] 05:11:00 Test Item Value Reference Range Interpretation [...] 0-0 (BEAKER) (test code = 413) POCT-GLUCOSE [id number] 22:29:00 Test Item Value Reference Range Interpretation Comments POC-GLUCOSE METER 235 mg/dL 70-110 H : TESTED A T [facility] 6720 (BEAKER) (test code = [facility], 1538) [address]: Sheriff Detective/Techni rebeca ID = [id number] for HUGH COCHRAN [id number] 21:49:00 Test Item Value Reference Range Interpretation Comments PARTIAL THROMBOPLASTIN TIME 81.9 seconds 22.5-36.0 H (BEAKER) (test code = 760) POCT-GLUCOSE [id number] 17:50:00 Test Item Value Reference Range Interpretation Comments POC-GLUCOSE METER 236 mg/dL 70-110 H : TESTED A T [facility] 6720 (BEAKER) (test code = [facility], 1538) [address]: Sheriff Detective/Techni rebeca ID = [id number] for INDIO ISAACS PT/[id number] 16:52:00 Test Item Value Reference Range Interpretation [...] INR is2.5-3.5 for patients wiht mechanical heart valves.PT/[id number] 13:41:00 Test Item Value Reference Range Interpretation [...] is2.5-3.5 for patients wiht mechanical heart valves.POCT-GLUCOSE [id number] 12:47:00 Test Item Value Reference Range Interpretation Comments POC-GLUCOSE METER 229 mg/dL 70-110 H : TESTED A T [facility] 6720 (BEAKER) (test code = [facility], 1538) [address]: Sheriff Detective/Techni rebeca ID = [id number] for QU EDER, INDIO POCT-GLUCOSE [id number] 09:42:00 Test Item Value Reference Range Interpretation Comments POC-GLUCOSE METER 188 mg/dL 70-110 H : TESTED A T [facility] 6720 (BEAKER) (test code = [facility], 1538) [address]: Sheriff Detective/Techni rebeca ID = [id number] for QU EDER, INDIO [id number] 06:24:00 Test Item Value Reference Range Interpretation Comments PARTIAL THROMBOPLASTIN TIME 86.3 seconds 22.5-36.0 H (BEAKER) (test code = 760) BASIC METABOLIC [id number] 04:52:00 Test Item Value Reference Range Interpretation [...] S NOT APPLICABLE FOR DIALYSIS PATIRADHA MERA. [id number] 04:25:00 Test Item Value Reference Range Interpretation [...] 150-450 code = 756) MEAN PLATELET VOLUME ([facility]) 9.8 fL 9.4-12.3 (test code = 754) NUCLEATED RED BLOOD CELLS 0 /100 WBC 0-0 ([facility]) (test code = 413) POCT-GLUCOSE [id number] 04:03:00 Test Item Value Reference Range Interpretation Comments POC-GLUCOSE METER 123 mg/dL 70-110 H : [facility] (test code = [facility], 1538) [address]: Sheriff Detective/Techni rebeca ID = [id number] for ANDI ZUNIGA POCT-GLUCOSE [id number] 21:41:00 Test Item Value Reference Range Interpretation Comments POC-GLUCOSE METER 293 mg/dL 70-110 H : [facility]) (test code = [facility], 1538) [address]: Sheriff Detective/Techni rebeca ID = [id number] for ANDI ZUNIGA [id number] 19:17:00 Test Item Value Reference Range Interpretation Comments PARTIAL THROMBOPLASTIN TIME 27.4 seconds 22.5-36.0 ([facility]) (test code = 760) Prior to initiating heparinPLATELET [id number] 18:53:00 Test Item Value Reference Range Interpretation Comments PLATELET COUNT ([facility]) (test 249 K/CU MM 150-450 code = 756) POCT-GLUCOSE [id number] 13:46:00 Test Item Value Reference Range Interpretation Comments POC-GLUCOSE METER 246 mg/dL 70-110 H : Notified RN/MD: (CRISTY) (test code = TESTED AT [place] [address] 1538) [facility], [address]: Sheriff Detective/Techni rebeca ID = [id number] for Phi nisee, Veena POCT-GLUCOSE [id number] 08:33:00 Test Item Value Reference Range Interpretation Comments POC-GLUCOSE METER 124 mg/dL 70-110 H : Notified RN/MD: (CRISTY) (test code = TESTED AT [place] [address] 1538) [facility], [address]: Sheriff Detective/Techni rebeca ID = [id number] for Phi nisee, Veena TROPONIN [id number] 07:02:00 Test Item Value Reference Range Interpretation Comments TROPONIN I (BEAKER) (test code = 0.27 ng/mL 0.00-0.03 397) Troponin I (TnI) levels [...] 0-0 (BEAKER) (test code = 413) POCT-GLUCOSE [id number] 05:54:00 Test Item Value Reference Range Interpretation Comments POC-GLUCOSE METER 94 mg/dL 70-110 : TESTED A T [facility] 6720 (BEAKER) (test code = [place], 1538) [address]: Sheriff Detective/Techni rebeca ID = [id number] for ROSS , SYNTERIA RAD, CHEST, 1 VIEW, NON [id number] 03:34:00Reason for exam:->chest painShould this be performed [...] Ying MDReport Verified Date/Time: 01/26/2019 03:34:50 TROPONIColin [id number] 00:11:00 Test Item Value Reference Range Interpretation [...] acute neurological disease, and persistent tachyarrhythmia.COMPREHENSIVE METABOLIC [id number] 00:09:00 Test Item Value Reference Range Interpretation [...] pg/mL 0-100 H (test code = 700) [id number] 23:56:00 Test Item Value Reference Range Interpretation Comments MAGNESIUM (BEAKER) 2.3 mg/dL 1.6-2.6 Specimen slightly (test code = 627) hemolyzed [id number] 23:53:00 Test Item Value Reference Range Interpretation Comments PARTIAL THROMBOPLASTIN TIME 20.7 seconds 22.5-36.0 L (BEAKER) (test code = 760) Prior to initiating heparinProthrombin time/[id number] 23:41:00 Test Item Value Reference Range Interpretation [...] heparin Lab Interpretation Normal (test code = 89874-3) [facility]PROT[facility]OMBIN [facility]/[id number] 23:41:00 Test Item Value Reference Range Interpretation [...] per sliding scaleCBC W/PLT COUNT & AUTO [id number] 23:33:00 Test Item Value Reference Range Interpretation [...] PERCENT (BEAKER) (test code = 2801) POCT-GLUCOSE [id number] 22:21:00 Test Item Value Reference Range Interpretation Comments POC-GLUCOSE METER 210 mg/dL 70-110 H : TESTED A T [facility] 6720 (BEAKER) (test code = [facility], 1538) [address]: Sheriff Detective/Techni rebeca ID = [id number] for NICOLE BEE JEROME POCT-GLUCOSE [id number] 12:57:00 Test Item Value Reference Range Interpretation Comments POC-GLUCOSE METER 318 mg/dL 70-110 H : TESTED A T [facility] 6720 (BEAKER) (test code [facility], = 1538) [address]: Sheriff Detective/Techni rebeca ID = [id number] for LEX MEMBRENO POCT-GLUCOSE [id number] 08:08:00 Test Item Value Reference Range Interpretation Comments POC-GLUCOSE METER 263 mg/dL 70-110 H : TESTED A T [facility] 6720 (BEAKER) (test code = [place], 1538) [address]: Sheriff Detective/Techni rebeca ID = [id number] for NOVA PERSAUD CBC W/PLT COUNT & AUTO [id number] 05:21:00 Test Item Value Reference Range Interpretation [...] (BEAKER) (test code = 2801) BASIC METABOLIC [id number] 05:18:00 Test Item Value Reference Range Interpretation [...] S NOT APPLICABLE FOR DIALYSIS PATIEN TS. [id number] 05:17:00 Test Item Value Reference Range Interpretation Comments PHOSPHORUS (BEAKER) (test code = 4.4 mg/dL 2.3-4.7 604) [id number] 05:17:00 Test Item Value Reference Range Interpretation Comments MAGNESIUM (BEAKER) (test code = 2.0 mg/dL 1.6-2.6 627) B-TYPE NATRIURETIC FACTOR (BNP)2018-12-25 04:55:00 Test Item Value Reference Range Interpretation Comments B-TYPE NATRIURETIC PEPTIDE (BEAKER) 775 pg/mL 0-100 H (test code = 700) CALCIUM, [id number] 04:45:00 Test Item Value Reference Range Interpretation Comments CALCIUM IONIZED (BEAKER) (test 1.16 mmol/L 1.12-1.27 code = 698) PH, BLOOD ([facility]) (test code = 7.32 1810) POCT-GLUCOSE [id number] 23:15:00 Test Item Value Reference Range Interpretation Comments POC-GLUCOSE METER 280 mg/dL 70-110 H : Notified RN/MD: (CRISTY) (test code = TESTED AT [place] [address] 1538) [facility], [address]: Sheriff Detective/Techni rebeca ID = [id number] for KEZIA GILMOREA POCT-GLUCOSE [id number] 23:13:00 Test Item Value Reference Range Interpretation Comments POC-GLUCOSE METER 179 mg/dL 70-110 H : TESTED A T [place] [address] ([facility]) (test code = [facility], 1538) [address]: Sheriff Detective/Techni rebeca ID = [id number] for KEZIA GILMORE [place] [id number] 22:12:00 Test Item Value Reference Range Interpretation Comments ACTIVATED CLOTTING TIME 147 sec Refe rence Range: (BEAKER) (test code = 74-137 seconds, 441) Baseline/TESTED AT [place] [address] [facility] 7703 0 [id number] 17:58:00 Test Item Value Reference Range Interpretation Comments ACTIVATED CLOTTING TIME 257 sec Refe rence Range: (BEAKER) (test code = 74-137 seconds, 441) Baseline/TESTED AT [place] [address] [facility] 7703 0 [id number] 17:57:00 Test Item Value Reference Range Interpretation Comments ACTIVATED CLOTTING TIME 252 sec Refe rence Range: (BEAKER) (test code = 74-137 seconds, 441) Baseline/TESTED AT [place] [address] [facility] 7703 0 POCT-GLUCOSE [id number] 12:58:00 Test Item Value Reference Range Interpretation Comments POC-GLUCOSE METER 150 mg/dL 70-110 H : TESTED A T [place] [address] (BEAKER) (test code = [facility], 1538) [address]: Sheriff Detective/Techni rebeca ID = [id number] for MUKESH GOODRICH [id number] 08:41:00 Test Item Value Reference Range Interpretation Comments PARTIAL THROMBOPLASTIN TIME 69.4 seconds 22.5-36.0 H (BEAKER) (test code = 760) POCT-GLUCOSE [id number] 08:37:00 Test Item Value Reference Range Interpretation Comments POC-GLUCOSE METER 115 mg/dL 70-110 H : Notified RN/MD: (AKER) (test code = TESTED AT [facility] 6720 1538) [facility], [address]: Sheriff Detective/Techni rebeca ID = [id number] for Adilene Madrigal COMPREHENSIVE METABOLIC [id number] 01:52:00 Test Item Value Reference Range Interpretation [...] S NOT APPLICABLE FOR DIALYSIS PATIEN TS. [id number] 01:29:00 Test Item Value Reference Range Interpretation Comments PARTIAL THROMBOPLASTIN TIME 51.5 seconds 22.5-36.0 H (BEAKER) (test code = 760) POCT-GLUCOSE [id number] 18:32:00 Test Item Value Reference Range Interpretation Comments POC-GLUCOSE METER 185 mg/dL 70-110 H : TESTED A T [facility] 6720 (BEAKER) (test code = [facility], 1538) [address]: Sheriff Detective/Techni rebeca ID = [id number] for Akash Vera POCT-GLUCOSE [id number] 18:31:00 Test Item Value Reference Range Interpretation Comments POC-GLUCOSE METER 210 mg/dL 70-110 H : TESTED A T [facility] 6720 (BEAKER) (test code = [facility], 1538) [address]: Sheriff Detective/Techni rebeca ID = [id number] for Fr campos, Akash POCT-GLUCOSE [id number] 18:29:00 Test Item Value Reference Range Interpretation Comments POC-GLUCOSE METER 150 mg/dL 70-110 H : TESTED A T [facility] 6720 (BEAKER) (test code = [facility], 1538) [address]: Sheriff Detective/Techni rebeca ID = [id number] for LIZ PRIEST [id number] 16:30:00 Test Item Value Reference Range Interpretation Comments PARTIAL THROMBOPLASTIN TIME 98.0 seconds 22.5-36.0 H (BEAKER) (test code = 760) TROPONIN [id number] 09:11:00 Test Item Value Reference Range Interpretation Comments TROPONIN I (BEAKER) (test code = 0.97 ng/mL 0.00-0.03 [facility]) Troponin I (TnI) levels must be interpreted [...] failure, acidosis, acute neurological disease, and persistent tachyarrhythmia.[id number] 07:52:00 Test Item Value Reference Range Interpretation Comments PHOSPHORUS (BEAKER) (test code = 3.9 mg/dL 2.3-4.7 604) [id number] 07:52:00 Test Item Value Reference Range Interpretation Comments MAGNESIUM (BEAKER) (test code = 2.0 mg/dL 1.6-2.6 627) COMPREHENSIVE METABOLIC [id number] 07:52:00 Test Item Value Reference Range Interpretation [...] NOT APPLICABLE FOR DIALYSIS PATIEN TS. CALCIUM, [id number] 07:37:00 Test Item Value Reference Range Interpretation Comments CALCIUM IONIZED (BEAKER) (test 1.14 mmol/L 1.12-1.27 code = 698) PH, BLOOD (BEAKER) (test code = 7.40 1810) B-TYPE NATRIURETIC FACTOR (BNP)2018-12-23 06:42:00 Test Item Value Reference Range Interpretation Comments B-TYPE NATRIURETIC PEPTIDE (BEAKER) 190 pg/mL 0-100 H (test code = 700) [id number] 05:48:00 Test Item Value Reference Range Interpretation Comments PARTIAL THROMBOPLASTIN TIME 90.8 seconds 22.5-36.0 H (BEAKER) (test code = 760) CBC W/PLT COUNT & AUTO [id number] 05:35:00 Test Item Value Reference Range Interpretation [...] PERCENT (BEAKER) (test code = 2801) POCT-GLUCOSE [id number] 21:16:00 Test Item Value Reference Range Interpretation Comments POC-GLUCOSE METER 200 mg/dL 70-110 H : TESTED A T [facility] 6720 (AKER) (test code [facility], = 1538) [address]: Sheriff Detective/Techni rebeca ID = [id number] for GISSELLE OLMSTEAD [id number] 20:08:00 Test Item Value Reference Range Interpretation Comments PARTIAL THROMBOPLASTIN TIME 51.9 seconds 22.5-36.0 H (BEAKER) (test code = 760) POCT-GLUCOSE [id number] 17:37:00 Test Item Value Reference Range Interpretation Comments POC-GLUCOSE METER 211 mg/dL 70-110 H : TESTED A T [facility] 6720 (BEAKER) (test code = [facility], 1538) [address]: Sheriff Detective/Techni rebeca ID = [id number] for Kit Trivediille [id number] 13:26:00 Test Item Value Reference Range Interpretation Comments PARTIAL THROMBOPLASTIN TIME 65.2 seconds 22.5-36.0 H (BEAKER) (test code = 760) POCT-GLUCOSE [id number] 13:18:00 Test Item Value Reference Range Interpretation Comments POC-GLUCOSE METER 194 mg/dL 70-110 H : TESTED A T [facility] 6720 (BEAKER) (test code = [facility], 1538) 94[address]: Sheriff Detective/Techni rebeca ID = [id number] for Deepa Trivedi HEMOGLOBIN [id number] 10:07:00 Test Item Value Reference Range Interpretation Comments HEMOGLOBIN A1C (BEAKER) (test code = 10.2 % 4.3-6.1 H 368) [id number] 09:05:00 Test Item Value Reference Range Interpretation Comments Ferritin (test code = 2276-4) 195 ng/mL 5-275 Lab Interpretation (test code = Normal 48162-1) [facility] 09:05[facility]00 Test Item Value Reference Range Interpretation Comments FERRITIN (BEAKER) (test code = 361) 195 ng/mL 5-275 POCT-GLUCOSE [id number] 08:37:00 Test Item Value Reference Range Interpretation Comments POC-GLUCOSE METER 202 mg/dL 70-110 H : TESTED A T [facility] 6720 (BEAKER) (test code = [facility], 1538) [address]: Sheriff Detective/Techni rebeca ID = [id number] for CLIFF JACOBO CALCIUM, [id number] 06:55:00 Test Item Value Reference Range Interpretation [...] 2502-3) Lab Interpretation (test code = Abnormal 31276-6) [facility], TIBC, % SAT. (WITHOUT FERRITIN)2018-12-22 06:37:00 Test Item Value Reference Range Interpretation Comments IRON (BEAKER) (test code = 547) 85.0 ug/dL 40.0-160.0 TOTAL IRON BINDING CAPACITY 226 ug/dL 250-450 L (BEAKER) (test code = 769) IRON % SATURATION (2) (BEAKER) 38 % 20-55 (test code = 2590) TROPONIN [id number] 05:40:00 Test Item Value Reference Range Interpretation [...] acute neurological disease, and persistent tachyarrhythmia.COMPREHENSIVE METABOLIC [id number] 05:39:00 Test Item Value Reference Range Interpretation [...] pg/mL 0-100 H (test code = 700) [id number] 05:32:00 Test Item Value Reference Range Interpretation Comments PHOSPHORUS (BEAKER) (test code = 4.8 mg/dL 2.3-4.7 H 604) [id number] 05:32:00 Test Item Value Reference Range Interpretation Comments MAGNESIUM (BEAKER) (test code = 2.0 mg/dL 1.6-2.6 627) [id number] 05:19:00 Test Item Value Reference Range Interpretation Comments PARTIAL THROMBOPLASTIN TIME 92.9 seconds 22.5-36.0 H (BEAKER) (test code = 760) Reticulocyte [id number] 05:11:00 Test Item Value Reference Range Interpretation Comments % Retic (test code = 47650-4) 2.0 % 0.5-1.7 H Lab Interpretation (test code = Abnormal 78662-9) [facility]RETICULOCYTE [id number] 05:11:00 Test Item Value Reference Range Interpretation Comments RETICULOCYTE COUNT PCT (BEAKER) (test 2.0 % 0.5-1.7 H code = 575) CBC W/PLT COUNT & AUTO [id number] 05:11:00 Test Item Value Reference Range Interpretation [...] (BEAKER) (test code = 2801) U/S, RENAL, [id number] 01:46:00Reason for exam:->AKIShould this be performed at [...] Ying MDReport Verified Date/Time: 12/22/2018 01:46:35 POCT-GLUCOSE [id number] 22:07:00 Test Item Value Reference Range Interpretation Comments POC-GLUCOSE METER 105 mg/dL 70-110 : TESTED A T [facility] 6720 (BEAKER) (test code = [facility], 1538) 69[address]: Sheriff Detective/Techni rebeca ID = [id number] for Iza Hamilton [id number] 20:19:00 Test Item Value Reference Range Interpretation Comments PARTIAL THROMBOPLASTIN TIME 75.7 seconds 22.5-36.0 H (BEAKER) (test code = 760) POCT-GLUCOSE [id number] 17:42:00 Test Item Value Reference Range Interpretation Comments POC-GLUCOSE METER 305 mg/dL 70-110 H : TESTED A T [facility] 6720 (BEAKER) (test code = [facility], 1538) 68[address]: Sheriff Detective/Techni rebeca ID = [id number] for CLIFF JACOBO URINALYSIS W/ [id number] 14:46:00 Test Item Value Reference Range Interpretation [...] SOURCE(BEAKER) (test code = 2795) CREATININE, RANDOM [id number] 14:45:00 Test Item Value Reference Range Interpretation Comments CREATININE URINE (BEAKER) (test 123.0 mg/dL code = 375) Reference Range: No [id number] 14:24:00 Test Item Value Reference Range Interpretation Comments PARTIAL THROMBOPLASTIN TIME 67.3 seconds 22.5-36.0 H (BEAKER) (test code = 760) PROTEIN, RANDOM [id number] 14:23:00 Test Item Value Reference Range Interpretation Comments PROTEIN, URINE (BEAKER) (test code = 20 mg/dL 0-14 H 1569) SODIUM, RANDOM [id number] 14:23:00 Test Item Value Reference Range Interpretation Comments SODIUM URINE (BEAKER) (test code = 26 meq/L 243) Reference Range: No [id number] Echo W/Doppler(CW/PW/Color)2018-12-21 12:36:19 Ejection FractionSLEH ECHO HEARTLAB MKCKESSON CPACSInterface, External Ris In - 12/21/2018 12:36 PM CDTTransthoracic Echocardiography Report (TTE) Demographics Patient Name HENRIQUE ARECHIGA Date of Study 12/21/2018 RANDEE Gender Female Visit Number [id number] Race Room Number 6105 Number Date of 1940 Referring Peyton Palmer S Physician Age 78 year(s) Senior Construction Manager Destini Silva, ALEJANDRO, RDCS,RVT,RDMS Light Industrial Supervisor Nader Finley Interpreting Kash Carr MD Physician [...] CO: 4.47 l/min LVOT CI: 2.63 l/min/m^2[facility] CenterTROP[facility]OLVIA [id number] 12:25:00 Test Item Value Reference Range Interpretation Comments TROPONIN I (CRISTY) (test code = 2.12 ng/mL 0.00-0.03 HH [...] acidosis, acute neurological disease, and persistent tachyarrhythmia.POCT-GLUCOSE [id number] 10:12:00 Test Item Value Reference Range Interpretation Comments POC-GLUCOSE METER 177 mg/dL 70-110 H : TESTED A T [facility] 6720 (CRISTY) (test code = [place], 1538) [address]: Sheriff Detective/Techni rebeca ID = [id number] for CLIFF JACOBO PT/[id number] 07:55:00 Test Item Value Reference Range Interpretation Comments PROTIME (BEOJ) (test code = 14.1 seconds 11.9-14.2 759) [...] INR is2.5-3.5 for patients wiht mechanical heart valves.[id number] 05:00:00 Test Item Value Reference Range Interpretation Comments PARTIAL THROMBOPLASTIN TIME 132.7 seconds 22.5-36.0 H (BEOJ) (test code = 760) 6 hours after starting heparin infusion and as indicated per sliding scale TROPONIN [id number] 04:38:00 Test Item Value Reference Range Interpretation [...] acute neurological disease, and persistent tachyarrhythmia.BASIC METABOLIC [id number] 04:37:00 Test Item Value Reference Range Interpretation [...] 0-0 (BEAKER) (test code = 413) TROPONIN [id number] 01:13:00 Test Item Value Reference Range Interpretation [...] acidosis, acute neurological disease, and persistent tachyarrhythmia.POCT-GLUCOSE [id number] 00:48:00 Test Item Value Reference Range Interpretation Comments POC-GLUCOSE METER 226 mg/dL 70-110 H : TESTED A T [facility] 6720 ([facility]) (test code = [facility], 1538) [address]: Sheriff Detective/Techni rebeca ID = [id number] for TISHA BISHOP LU RAD, CHEST, 1 VIEW, NON [id number] 21:25:00Reason for exam:->chest painShould this be performed [...] Signed: Wilson Valdez MDReport Verified Date/Time:12/20/2018 21:25:44 LY [id number] 21:11:00 Test Item Value Reference Range Interpretation [...] (BEAKER) (test code = 700) COMPREHENSIVE METABOLIC [id number] 21:05:00 Test Item Value Reference Range Interpretation [...] S NOT APPLICABLE FOR DIALYSIS PATIEN TS. [id number] 21:02:00 Test Item Value Reference Range Interpretation Comments MAGNESIUM (BEAKER) (test code = 2.0 mg/dL 1.6-2.6 627) [id number] 20:58:00 Test Item Value Reference Range Interpretation [...] mechanical heart valves.CBC W/PLT COUNT & AUTO [id number] 20:46:00 Test Item Value Reference Range Interpretation [...] PERCENT (BEAKER) (test code = 2801) CRITICAL [id number] 20:19:22HaPapito manning MD 12/26/2018 3:29 PMCritical CarePerformed by: Papito Augustine, MDAuthorized by: Puneet Snider MD Total critical [...] surrogate and interpretation of cardiac output measurements.[facility] HospitalTreadmill tolerance(Non-Nuclear Treadmill)2018-11-23 15:05:04Interface, External Ris In - [...] MD MARTA, INDRA (4114) on 11/23/2018 3:05:01PMKaiser HospitalPOCT-GLUCOSE [id number] 11:57:00 Test Item Value Reference Range Interpretation Comments POC-GLUCOSE METER 377 mg/dL 70-110 H TESTED AT [address]) (test code = [facility] 1538) [address] POCT-GLUCOSE [id number] 09:11:00 Test Item Value Reference Range Interpretation Comments POC-GLUCOSE METER 95 mg/dL 70-110 TESTED AT [address]) (test code = [facility] [address] 1538) POCT-GLUCOSE [id number] 06:53:00 Test Item Value Reference Range Interpretation Comments POC-GLUCOSE METER 288 mg/dL 70-110 H TESTED AT [address]) (test code = [facility] 1538) [address] COMPREHENSIVE METABOLIC [id number] 01:54:00 Test Item Value Reference Range Interpretation [...] S NOT APPLICABLE FOR DIALYSIS PATIEN TS. [id number] 01:49:00 Test Item Value Reference Range Interpretation Comments ACTIVATED CLOTTING TIME 142 sec Refe rence Range: (BEAKER) (test code = 74-137 seconds, 441) Baseline/TESTED AT [facility] 6720 [facility] 7703 0 B-TYPE NATRIURETIC FACTOR (BNP)2018-11-13 01:42:00 Test Item Value Reference Range Interpretation Comments B-TYPE NATRIURETIC PEPTIDE 1151 pg/mL 0-100 H (BEAKER) (test code = 700) URINALYSIS W/ [id number] 01:40:00 Test Item Value Reference Range Interpretation [...] = 516) SOURCE(BEAKER) (test code = 2795) [id number] 01:36:00 Test Item Value Reference Range Interpretation Comments MAGNESIUM (BEAKER) 2.0 mg/dL 1.6-2.6 Specimen slightly (test code = 627) hemolyzed [id number] 01:36:00 Test Item Value Reference Range Interpretation Comments PHOSPHORUS (BEAKER) 4.4 mg/dL 2.3-4.7 Specimen slightly (test code = 604) hemolyzed CBC W/PLT COUNT & AUTO [id number] 01:24:00 Test Item Value Reference Range Interpretation [...] PERCENT (BEAKER) (test code = 2801) CALCIUM, [id number] 01:16:00 Test Item Value Reference Range Interpretation Comments CALCIUM IONIZED (CRISTY) (test 1.10 mmol/L 1.12-1.27 L code = 698) PH, BLOOD (CRISTY) (test code = 7.32 1810) [id number] 23:34:00 Test Item Value Reference Range Interpretation Comments ACTIVATED CLOTTING TIME 164 sec Refe rence Range: (CRISTY) (test code = 74-137 seconds, 441) Baseline/TESTED AT [address] 770 0 [id number] 21:52:00 Test Item Value Reference Range Interpretation Comments ACTIVATED CLOTTING TIME 191 sec Refe rence Range: (CRISTY) (test code = 74-137 seconds, 441) Baseline/TESTED AT [address] [address]703 0 POCT-GLUCOSE [id number] 21:33:00 Test Item Value Reference Range Interpretation Comments POC-GLUCOSE METER 294 mg/dL 70-110 H TESTED AT [place] [address] ([facility]) (test code = [facility] 1538) [address] C. DIFFICILE GDH [id number] 20:08:00 Test Item Value Reference Range Interpretation Comments CDT TOXIN (test code Negative Negative = [id number]) CDT GDH ANTIGEN Positive Negative A C. difficile present but (test code = toxin not detec elva. [id number]) Indicates colon ization with non-toxige alexis strain [...] [facility] prior to clinical use.[id number] 17:58:00 Test Item Value Reference Range Interpretation Comments ACTIVATED CLOTTING TIME 290 sec Refe rence Range: (BEOJ) (test code = 74-137 seconds, 441) Baseline/TESTED AT [address] [address] 0 [id number] 16:57:00 Test Item Value Reference Range Interpretation Comments ACTIVATED CLOTTING TIME 263 sec Refe rence Range: (BEAKER) (test code = 74-137 seconds, 441) Baseline/TESTED AT [facility] 6720 [facility] 7703 0 [id number] 16:20:00 Test Item Value Reference Range Interpretation Comments ACTIVATED CLOTTING TIME 252 sec Refe rence Range: (BEAKER) (test code = 74-137 seconds, 441) Baseline/TESTED AT [address] [address] 0 PET, CARDIAC PERFUSION MULTIPLE STUDIES, REST AND [id number] 15:26:00 Reason for exam:->eval chest pain, ischemiaFINAL REPORT PROCEDURE: MYOCARDIAL PERFUSION PET IMAGING (Rest/Stress)CPT CODE: 75449 INDICATION: Evaluate extent of known CAD, chest [...] rest.Symptoms: Chest discomfort, nausea, fatigue (Treatment was [id number] IV).Perfusion: There is an absence of perfusionin [...] MDReport Verified Date/Time: 11/12/2018 15:26:40 Reading Location: [place] [id number] Reading Room N myocardial perfusion PET (rest and stress)2018-11-12 15:26:00Interface, External Ris In - 11/12/2018 3:28 PM CDTFINAL REPORT PROCEDURE: MYOCARDIAL PERFUSION PET IMAGING (Rest/Stress)CPT CODE: 45653 INDICATION: Evaluate extent of known CAD, chest [...] rest.Symptoms: Chest discomfort, nausea, fatigue (Treatment was iqswdwwpjkgrn855kc IV).Perfusion: There is an absence of perfusion [...] MDReport Verified Date/Time: 11/12/2018 15:26:40 Reading Location: [address] Reading Room [facility] [id number] 10:22:00 Test Item Value Reference Range Interpretation Comments PARTIAL THROMBOPLASTIN TIME 90.3 seconds 22.5-36.0 H (BEAKER) (test code = 760) HEMOGLOBIN [id number] 09:39:00 Test Item Value Reference Range Interpretation Comments HEMOGLOBIN A1C (BEAKER) (test code = 12.0 % 4.3-6.1 H 368) POCT-GLUCOSE [id number] 08:37:00 Test Item Value Reference Range Interpretation Comments POC-GLUCOSE METER 281 mg/dL 70-110 H TESTED AT [facility] 6720 (BEAKER) (test code = [place] 1538) [address] [id number] 05:54:00 Test Item Value Reference Range Interpretation Comments PARTIAL THROMBOPLASTIN TIME 135.4 seconds 22.5-36.0 H (BEAKER) (test code = 760) CALCIUM, [id number] 05:31:00 Test Item Value Reference Range Interpretation Comments CALCIUM IONIZED (BEAKER) (test 1.10 mmol/L 1.12-1.27 L code = 698) PH, BLOOD (BEAKER) (test code = 7.39 1810) COMPREHENSIVE METABOLIC [id number] 04:56:00 Test Item Value Reference Range Interpretation [...] S NOT APPLICABLE FOR DIALYSIS PATIEN TS. [id number] 04:52:00 Test Item Value Reference Range Interpretation Comments MAGNESIUM (BEAKER) 2.0 mg/dL 1.6-2.6 Specimen slightly (test code = 627) hemolyzed [id number] 04:52:00 Test Item Value Reference Range Interpretation Comments PHOSPHORUS (BEAKER) 3.5 mg/dL 2.3-4.7 Specimen slightly (test code = 604) hemolyzed LIPID [id number] 04:52:00 Test Item Value Reference Range Interpretation [...] Very High >=190CBC W/PLT COUNT & AUTO [id number] 04:33:00 Test Item Value Reference Range Interpretation [...] 0-1 PERCENT (BEAKER) (test code = 2801) [id number] 22:22:00 Test Item Value Reference Range Interpretation Comments PARTIAL THROMBOPLASTIN TIME 86.6 seconds 22.5-36.0 H (BEAKER) (test code = 760) POCT-GLUCOSE [id number] 17:14:00 Test Item Value Reference Range Interpretation Comments POC-GLUCOSE METER 158 mg/dL 70-110 H TESTED AT [facility] 6720 (CRISTY) (test code = [place] 1538) [address] Transthoracic 2D echo w/ doppler (cw/pw/color)2018-11-11 16:06:08Ejection FractionSLEH ECHO HEARTLAB MKCKESSON CPACSInterface, External Ris In - 11/11/2018 4:06 PM CDTTransthoracic Echocardiography Report (TTE) Demographics Patient Name HENRIQUE ARECHIGA Date of Study 11/11/2018 ESCOBDEO Gender Female Visit Number [id number] Race Room Number 6102 Number Date of 1940 Referring Peyton Choe Physician Age 78 year(s) 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 Construction Manager Sly Sims RDCS Light Industrial Supervisor Amber Kaplan RDCS Interpreting Garry Goodwin Physician [...] CO: 4.03 l/min LVOT CI: 2.37 l/min/m^2[facility] 15:48:00 Test Item Value Reference Range Interpretation Comments PARTIAL THROMBOPLASTIN TIME 64.4 seconds 22.5-36.0 H ([facility]) (test code = 760) POCT-GLUCOSE [id number] 12:41:00 Test Item Value Reference Range Interpretation Comments POC-GLUCOSE METER 275 mg/dL 70-110 H TESTED AT [facility] 6720 ([facility]) (test code = JOSEPHMARY Gipson [place] 676198) [address] RAD, CHEST, 1 VIEW, NON [id number] 09:33:00Reason for exam:->chest painShould this be performed at the bedside?->YesFINAL REPORT Comparison: 08/14/2018 TECHNIQUE: Single view of the chest FINDINGS: Trace bilateral pleural effusions. Lungs otherwise grossly clear. Cardiac silhouette is prominent. Aortic calcifications are seen. No acute skeletal abnormality. Signed: Terry Sauer Verified Date/Time: 11/11/2018 09:33:09 Reading Location: [facility] B1 C013T Transitional Reading Room Electr onically signed [...] acidosis, acute neurological disease, and persistent tachyarrhythmia.POCT-GLUCOSE [id number] 08:57:00 Test Item Value Reference Range Interpretation Comments POC-GLUCOSE METER 321 mg/dL 70-110 H Notified R Colin BUENO/TESTED (BEAKER) (test code = AT [facility] 6720 [facility]) [facility] 7703 0 TROPONIN [id number] 08:29:00 Test Item Value Reference Range Interpretation [...] acute neurological disease, and persistent tachyarrhythmia.BASIC METABOLIC [id number] 08:26:00 Test Item Value Reference Range Interpretation [...] APPLICABLE FOR DIALYSIS PATIEN TS. Hepatic function [id number] 08:22:00 Test Item Value Reference Range Interpretation Comments Protein, Total (test code 7.3 6.0- 8.3 gm/dL Specimen slightly = 2885-2) hemolyzed Albumin (test code = 3.9 g/dL 3.5-5 Specime n slightly 54949-9) hemolyzed Total Bilirubin (test 0.5 mg/dL 0.2-1.2 [...] hemolyzed Lab Interpretation (test Normal code = 14367-6) [id number] Test Item Value Reference Range Interpretation Comments MAGNESIUM (BEAKER) 2.2 mg/dL 1.6-2.6 Specimen slightly (test code = 627) hemolyzed HEPATIC FUNCTION [id number] 08:22:00 Test Item Value Reference Range Interpretation [...] = 700) CBC W/PLT COUNT & AUTO [id number] 07:04:00 Test Item Value Reference Range Interpretation [...] (BEAKER) (test code = 2801) TSH/T4 if [id number] 06:39:00 Test Item Value Reference Range Interpretation Comments TSH (test code = 79271-7) 1.17 0.35- 4.94 uIU/mL Lab Interpretation (test code = Normal 70301-5) [facility] T[facility] [id number] 06:39:00 Test Item Value Reference Range Interpretation Comments THYROID STIMULATING HORMONE 1.17 uIU/mL 0.35-4.94 (BEAKER) (test code = 772) [id number] 05:38:00 Test Item Value Reference Range Interpretation [...] is2.5-3.5 for patients wiht mechanical heart valves.POCT-GLUCOSE [id number] 12:11:00 Test Item Value Reference Range Interpretation Comments POC-GLUCOSE METER 111 mg/dL 70-110 H TESTED AT [facility] 6720 (BEAKER) (test code = JODY [place] 1538) [address] CBC W/PLT COUNT & AUTO [id number] 10:11:00 Test Item Value Reference Range Interpretation [...] PERCENT (BEAKER) (test code = 2801) POCT-GLUCOSE [id number] 07:46:00 Test Item Value Reference Range Interpretation Comments POC-GLUCOSE METER 79 mg/dL 70-110 TESTED AT [place] [address] ([facility]) (test code = [facility] [address] 1538) BASIC METABOLIC [id number] 06:22:00 Test Item Value Reference Range Interpretation [...] NOT APPLICABLE FOR DIALYSIS PATIEN TS. POCT-GLUCOSE [id number] 20:51:00 Test Item Value Reference Range Interpretation Comments POC-GLUCOSE METER 176 mg/dL 70-110 H TESTED AT [place] [address] ([facility]) (test code = [facility] 1538) [address] POCT-GLUCOSE [id number] 18:25:00 Test Item Value Reference Range Interpretation Comments POC-GLUCOSE METER 84 mg/dL 70-110 TESTED AT [place] [address] ([facility] (test code = [facility] [address] 1538) POCT-GLUCOSE [id number] 12:54:00 Test Item Value Reference Range Interpretation Comments POC-GLUCOSE METER 111 mg/dL 70-110 H TESTED AT [place] [address] (BEAKER) (test code = [facility] 1538) [address] POCT-GLUCOSE [id number] 08:25:00 Test Item Value Reference Range Interpretation Comments POC-GLUCOSE METER 105 mg/dL 70-110 TESTED AT [place] [address] ([facility]) (test code = [facility] 1538) [address] BASIC METABOLIC [id number] 06:26:00 Test Item Value Reference Range Interpretation [...] NOT APPLICABLE FOR DIALYSIS PATIEN TS. POCT-GLUCOSE [id number] 04:25:00 Test Item Value Reference Range Interpretation Comments POC-GLUCOSE METER 81 mg/dL 70-110 TESTED AT [place] [address] (BEAKER) (test code = [facility] [address] 1538) POCT-GLUCOSE [id number] 21:58:00 Test Item Value Reference Range Interpretation Comments POC-GLUCOSE METER 164 mg/dL 70-110 H TESTED AT [place] [address] (BEAKER) (test code = JODY Gipson [facility] 1538) [address] POCT-GLUCOSE [id number] 18:38:00 Test Item Value Reference Range Interpretation Comments POC-GLUCOSE METER 98 mg/dL 70-110 TESTED AT [place] [address] (BEAKER) (test code = JOSEPHWA Brandan [facility] [address] 1538) POCT-GLUCOSE [id number] 13:14:00 Test Item Value Reference Range Interpretation Comments POC-GLUCOSE METER 105 mg/dL 70-110 TESTED AT [place] [address] (BEAKER) (test code = JODY Gipson [facility] 1538) [address] POCT-GLUCOSE [id number] 08:12:00 Test Item Value Reference Range Interpretation Comments POC-GLUCOSE METER 115 mg/dL 70-110 H TESTED AT [place] [address] ([facility] (test code = JOSEPHWA Brandan [facility] 1538) [address] BASIC METABOLIC [id number] 07:37:00 Test Item Value Reference Range Interpretation Comments SODIUM (BEAKER) 136 meq/L 136-145 (test code = 381) POTASSIUM (BEAKER) 3.7 meq/L 3.5-5.1 (test code = 379) CHLORIDE (BEAKER) 98 meq/L 98-107 (test code = 382) CO2 (BEAKER) (test 28 meq/L -29 code = 355) BLOOD UREA NITROGEN 54 [...] NOT APPLICABLE FOR DIALYSIS PATIEN TS. POCT-GLUCOSE [id number] 07:22:00 Test Item Value Reference Range Interpretation Comments POC-GLUCOSE METER 128 mg/dL 70-110 H TESTED AT [place] [address] ([facility]) (test code = JODY Gipson [facility] 1538) [address] POCT-GLUCOSE [id number] 04:05:00 Test Item Value Reference Range Interpretation Comments POC-GLUCOSE METER 95 mg/dL 70-110 TESTED AT [place] [address] ([facility]) (test code = JODY Gipson [facility] [address] 1538) POCT-GLUCOSE [id number] 04:05:00 Test Item Value Reference Range Interpretation Comments POC-GLUCOSE METER 68 mg/dL 70-110 L TESTED AT [place] [address] ([facility]) (test code = JODY Gipson [facility] [address] 1538) POCT-GLUCOSE [id number] 04:05:00 Test Item Value Reference Range Interpretation Comments POC-GLUCOSE METER 52 mg/dL 70-110 L TESTED AT [place] [address] ([facility]) (test code = JODY Gipson [facility] [address] 1538) POCT-GLUCOSE [id number] 22:26:00 Test Item Value Reference Range Interpretation Comments POC-GLUCOSE METER 132 mg/dL 70-110 H TESTED AT [place] [address] ([facility]) (test code = JODY Gipson [facility] 1538) [address] POCT-GLUCOSE [id number] 19:58:00 Test Item Value Reference Range Interpretation Comments POC-GLUCOSE METER 134 mg/dL 70-110 H TESTED AT [place] [address] ([facility]) (test code = JODY Gipson [facility] 1538) [address] POCT-GLUCOSE [id number] 13:11:00 Test Item Value Reference Range Interpretation Comments POC-GLUCOSE METER 148 mg/dL 70-110 H TESTED AT [place] [address] ([facility]) (test code = JODY Gipson [facility] 1538) [address] POCT-GLUCOSE [id number] 12:30:00 Test Item Value Reference Range Interpretation Comments POC-GLUCOSE METER 183 mg/dL 70-110 H TESTED AT [place] [address] ([facility]) (test code = JODY Gipson [facility] 1538) [address] CBC W/PLT COUNT & AUTO [id number] 10:37:00 Test Item Value Reference Range Interpretation Comments WHITE BLOOD CELL COUNT ([facility]) 7.4 K/ L 3.5-10.5 (test code = [...] PERCENT (BEAKER) (test code = 2801) POCT-GLUCOSE [id number] 08:09:00 Test Item Value Reference Range Interpretation Comments POC-GLUCOSE METER 99 mg/dL 70-110 TESTED AT [place] [address] ([facility] (test code = JODY Gipson [facility] [address] 1538) BASIC METABOLIC [id number] 05:41:00 Test Item Value Reference Range Interpretation [...] NOT APPLICABLE FOR DIALYSIS PATIEN TS. POCT-GLUCOSE [id number] 21:42:00 Test Item Value Reference Range Interpretation Comments POC-GLUCOSE METER 171 mg/dL 70-110 H TESTED AT [facility] 6720 ([facility]) (test code = [facility] Gipson [facility] 1538) [address] POCT-GLUCOSE [id number] 18:03:00 Test Item Value Reference Range Interpretation Comments POC-GLUCOSE METER 123 mg/dL 70-110 H TESTED AT [facility] 6720 ([facility]) (test code = [facility] Brandan [facility] 1538) [address] POCT-GLUCOSE [id number] 12:52:00 Test Item Value Reference Range Interpretation Comments POC-GLUCOSE METER 167 mg/dL 70-110 H TESTED AT [facility] 6720 ([facility]) (test code = [facility] Brandan [facility] 1538) [address] POCT-GLUCOSE [id number] 09:05:00 Test Item Value Reference Range Interpretation Comments POC-GLUCOSE METER 128 mg/dL 70-110 H TESTED AT [facility] 6724 (BEAKER) (test code = JODY [place] 1530) [address] CT, PELVIS, WO [id number] 08:42:00FINAL REPORT CT pelvis without contrast HISTORY: [...] MDReport Verified Date/Time: 08/16/2018 08:42:53 Reading Location: [facility] Radiology Reading Room BASIC METABOLIC [id number] 05:58:00 Test Item Value Reference Range Interpretation [...] NOT APPLICABLE FOR DIALYSIS PATIEN TS. POCT-GLUCOSE [id number] 03:05:00 Test Item Value Reference Range Interpretation Comments POC-GLUCOSE METER 157 mg/dL 70-110 H TESTED AT [place] [address] ([facility]) (test code = JODY Gipson [facility] 1538) [address] POCT-GLUCOSE [id number] 20:57:00 Test Item Value Reference Range Interpretation Comments POC-GLUCOSE METER 106 mg/dL 70-110 TESTED AT [place] [address] ([facility]) (test code = [facility] Gipson [facility] 1538) [address] POCT-GLUCOSE [id number] 18:13:00 Test Item Value Reference Range Interpretation Comments POC-GLUCOSE METER 237 mg/dL 70-110 H TESTED AT [place] [address] ([facility]) (test code = [facility] Gipson [facility] 1538) [address]88 POCT-GLUCOSE [id number] 13:47:00 Test Item Value Reference Range Interpretation Comments POC-GLUCOSE METER 172 mg/dL 70-110 H TESTED AT [place] [address] ([facility]) (test code = [facility] Gipson [facility] 1538) [address] POCT-GLUCOSE [id number] 08:50:00 Test Item Value Reference Range Interpretation Comments POC-GLUCOSE METER 155 mg/dL 70-110 H TESTED AT [place] [address] ([facility]) (test code = [facility] Brandan [facility] 1538) [address] BASIC METABOLIC [id number] 06:36:00 Test Item Value Reference Range Interpretation [...] 8.4-10.2 L (test code = 697) EGFR ([facility]) (test 14 mL/min/1.73 ESTIMA ELVA GFR IS code = 1092) sq m NOT ACCURATE CREATININE CLEARANCE IN PREDICTING GLOMERULAR FILTRATION RATE . ESTIMATED GFR I S NOT APPLICABLE FOR DIALYSIS PATIEN TS. POCT-GLUCOSE [id number] 22:53:00 Test Item Value Reference Range Interpretation Comments POC-GLUCOSE METER 231 mg/dL 70-110 H TESTED AT [place] [address] ([facility]) (test code = [facility] 1538) [address] POCT-GLUCOSE [id number] 17:51:00 Test Item Value Reference Range Interpretation Comments POC-GLUCOSE METER 169 mg/dL 70-110 H TESTED AT [place] [address] ([facility]) (test code = [facility] 1538) [address] RESPIRATORY PANEL [id number] 15:45:00 Test Item Value Reference Range Interpretation [...] [facility] using the EZ4UArray Respiratory Panel. It is FDA cleared and has been verified and approved by the [facility] Diagnostics Laboratory for clinical use on nasopharyngeal swab specimens.The performance of the FilmArrayRP has not been established in individuals who received influenza vaccine. Recent administration ofa nasal influenza vaccine may cause false positive results for Influenza A and/orInfluenza B.URINALYSIS W/ REFLEX URINE [id number] 12:32:00 Test Item Value Reference Range Interpretation [...] 1578) SOURCE(BEAKER) (test code = 2795) POCT-GLUCOSE [id number] 12:29:00 Test Item Value Reference Range Interpretation Comments POC-GLUCOSE METER 222 mg/dL 70-110 H TESTED AT [facility] 6720 (BEAKER) (test code = JODY [place] 1538) [address] CBC W/PLT COUNT & AUTO [id number] 10:12:00 Test Item Value Reference Range Interpretation [...] MDReport Verified Date/Time: 08/14/2018 09:50:21 Reading Location: [facility] Radiology Reading Room POCT-GLUCOSE [id number] 08:20:00 Test Item Value Reference Range Interpretation Comments POC-GLUCOSE METER 126 mg/dL 70-110 H TESTED AT [facility] 6720 (BEAKER) (test code = [facility] Gipson [facility] 1538) [address] COMPREHENSIVE METABOLIC [id number] 07:13:00 Test Item Value Reference Range Interpretation [...] S NOT APPLICABLE FOR DIALYSIS PATIEN TS. [id number] 06:59:00 Test Item Value Reference Range Interpretation Comments PHOSPHORUS (BEAKER) (test code = 2.3 mg/dL 2.3-4.7 604) [id number] 06:59:00 Test Item Value Reference Range Interpretation Comments MAGNESIUM (BEAKER) (test code = 2.0 mg/dL 1.6-2.6 627) CALCIUM, [id number] 06:47:00 Test Item Value Reference Range Interpretation Comments CALCIUM IONIZED (BEAKER) (test 1.04 mmol/L 1.12-1.27 L code = 698) PH, BLOOD (BEAKER) (test code = 7.38 1810) POCT-GLUCOSE [id number] 23:29:00 Test Item Value Reference Range Interpretation Comments POC-GLUCOSE METER 196 mg/dL 70-110 H TESTED AT [facility] 6720 (BEAKER) (test code = JOSEPHMARY [place] 1538) [address]77 POCT-GLUCOSE [id number] 17:42:00 Test Item Value Reference Range Interpretation Comments POC-GLUCOSE METER 179 mg/dL 70-110 H TESTED AT [place] [address] (BEAKER) (test code = JODY Gipson [place] 1538) [address] POCT-GLUCOSE [id number] 12:19:00 Test Item Value Reference Range Interpretation Comments POC-GLUCOSE METER 189 mg/dL 70-110 H TESTED AT [place] [address] (BEAKER) (test code = JODY [place]ip[place] 1538) [address] POCT-GLUCOSE [id number] 08:34:00 Test Item Value Reference Range Interpretation Comments POC-GLUCOSE METER 119 mg/dL 70-110 H TESTED AT [place] [address] (BEAKER) (test code = JODY Gipson [facility] 1538) [address]78 COMPREHENSIVE METABOLIC [id number] 02:54:00 Test Item Value Reference Range Interpretation [...] S NOT APPLICABLE FOR DIALYSIS PATIEN TS. [id number] 02:48:00 Test Item Value Reference Range Interpretation Comments PHOSPHORUS (BEAKER) (test code = 2.2 mg/dL 2.3-4.7 L 604) [id number] 02:48:00 Test Item Value Reference Range Interpretation Comments MAGNESIUM (BEAKER) (test code = 1.5 mg/dL 1.6-2.6 L 627) CALCIUM, [id number] 02:32:00 Test Item Value Reference Range Interpretation Comments CALCIUM IONIZED (BEAKER) (test 0.93 mmol/L 1.12-1.27 L code = 698) PH, BLOOD (BEAKER) (test code = 7.53 1810) CBC W/PLT COUNT & AUTO [id number] 02:31:00 Test Item Value Reference Range Interpretation [...] PERCENT (BEAKER) (test code = 2801) POCT-GLUCOSE [id number] 02:17:00 Test Item Value Reference Range Interpretation Comments POC-GLUCOSE METER 97 mg/dL 70-110 TESTED AT [place] [address] ([facility] (test code = [facility] Brandan [facility] [address] 1538) POCT-GLUCOSE [id number] 21:04:00 Test Item Value Reference Range Interpretation Comments POC-GLUCOSE METER 147 mg/dL 70-110 H TESTED AT [place] [address] ([facility]) (test code = [facility] Brandan [facility] 1538) [address] POCT-GLUCOSE [id number] 17:42:00 Test Item Value Reference Range Interpretation Comments POC-GLUCOSE METER 172 mg/dL 70-110 H TESTED AT [place] [address] (BEAKER) (test code = [facility] 1538) [address]161 POCT-GLUCOSE [id number] 12:05:00 Test Item Value Reference Range Interpretation Comments POC-GLUCOSE METER 124 mg/dL 70-110 H TESTED AT [place] [address] (BEAKER) (test code = [facility] Brandan [facility] 1538) [address] POCT-GLUCOSE [id number] 07:37:00 Test Item Value Reference Range Interpretation Comments POC-GLUCOSE METER 94 mg/dL 70-110 TESTED AT [place] [address] ([facility]) (test code = JODY Gipson [facility] [address] 1538) RAD, CHEST, 1 VIEW, NON [id number] 04:50:00Reason for exam:->SOBShould this be performed at the bedside?->YesFINAL REPORT CLINICAL INDICATION: Shortness of breath Comparison: 08/11/2018 The examination is limited by lordotic positioning. The cardiomediastinal contours are stable. Central pulmonary vascular congestion and bilateral parenchymal opacities are partially improved, suggesting improving pulmonary edema. Small bilateral pleural effusions are present. There is no pneumothorax.A right IJ CVC has been removed. Signed: Wilson Valdezeport Verified Date/Time: 08/12/2018 04:50:01 Reading Location: [address] Reading Room POCT-GLUCOSE METER 2018-08-12 04:39:00 Test Item Value Reference Range Interpretation Comments POC-GLUCOSE METER 107 mg/dL 70-110 TESTED AT [place] [id number] ([facility]) (test code = JODY Gipson [facility] 1538) [address] COMPREHENSIVE METABOLIC [id number] 04:16:00 Test Item Value Reference Range Interpretation [...] S NOT APPLICABLE FOR DIALYSIS PATIEN TS. [id number] 04:11:00 Test Item Value Reference Range Interpretation Comments PHOSPHORUS (BEAKER) (test code = 2.9 mg/dL 2.3-4.7 604) [id number] 04:11:00 Test Item Value Reference Range Interpretation Comments MAGNESIUM (BEAKER) (test code = 1.9 mg/dL 1.6-2.6 627) CBC W/PLT COUNT & AUTO [id number] 03:57:00 Test Item Value Reference Range Interpretation [...] PERCENT (BEAKER) (test code = 2801) CALCIUM, [id number] 03:25:00 Test Item Value Reference Range Interpretation Comments CALCIUM IONIZED (BEAKER) (test 1.10 mmol/L 1.12-1.27 L code = 698) PH, BLOOD (BEAKER) (test code = 7.43 1810) POCT-GLUCOSE [id number] 00:03:00 Test Item Value Reference Range Interpretation Comments POC-GLUCOSE METER 122 mg/dL 70-110 H TESTED AT [facility] 6720 (BEAKER) (test code = JODY [place] 1538) [address] POCT-GLUCOSE [id number] 21:32:00 Test Item Value Reference Range Interpretation Comments POC-GLUCOSE METER 104 mg/dL 70-110 TESTED AT [facility] 6720 (BEAKER) (test code = JODY [place] 1538) [address] POCT-GLUCOSE [id number] 17:51:00 Test Item Value Reference Range Interpretation Comments POC-GLUCOSE METER 151 mg/dL 70-110 H TESTED AT [facility] 6720 (BEAKER) (test code = JODY Gipson [facility] 1538) [address] BASIC METABOLIC [id number] 16:24:00 Test Item Value Reference Range Interpretation [...] S NOT APPLICABLE FOR DIALYSIS PATIEN TS. [id number] 16:22:00 Test Item Value Reference Range Interpretation Comments MAGNESIUM (BEAKER) 1.8 mg/dL 1.6-2.6 Specimen slightly (test code = 627) hemolyzed POCT-GLUCOSE [id number] 11:45:00 Test Item Value Reference Range Interpretation Comments POC-GLUCOSE METER 141 mg/dL 70-110 H TESTED AT [facility] 6720 (BEAKER) (test code = [facility] Brandan [facility] 1538) [address] POCT-GLUCOSE [id number] 07:51:00 Test Item Value Reference Range Interpretation Comments POC-GLUCOSE METER 112 mg/dL 70-110 H TESTED AT [facility] 6720 (BEAKER) (test code = [facility] Brandan [facility] 1538) [address] BASIC METABOLIC [id number] 05:18:00 Test Item Value Reference Range Interpretation [...] S NOT APPLICABLE FOR DIALYSIS PATIEN TS. [id number] 05:12:00 Test Item Value Reference Range Interpretation Comments MAGNESIUM (BEAKER) 2.0 mg/dL 1.6-2.6 Specimen moderately (test code = 627) hemolyzed CBC W/PLT COUNT & AUTO [id number] 04:19:00 Test Item Value Reference Range Interpretation [...] = 2801) RAD, CHEST, 1 VIEW, NON [id number] 03:48:00Reason for exam:->SOBShould this be performed at the bedside?->YesFINAL REPORT RAD, CHEST, 1 VIEW, NON DEPT INDICATION: SOB COMPARISON: Prior day's exam FINDINGS: Portable frontal view of the chest. IMPRESSION: Support Lines: Stable. Lungs and pleura: Unchanged airspace and pleural opacities. No pneumothorax.Heart and mediastinum: Stable contours. Additional findings: None. Signed: Socorro Méndez Verified Date/Time: 08/11/2018 03:48:09 -GLUCOSE [id number] 23:26:00 Test Item Value Reference Range Interpretation Comments POC-GLUCOSE METER 101 mg/dL 70-110 TESTED AT [facility] 6720 (BEAKER) (test code = JODY Gipson [place] 1538) [address] POCT-GLUCOSE [id number] 18:11:00 Test Item Value Reference Range Interpretation Comments POC-GLUCOSE METER 171 mg/dL 70-110 H TESTED AT [facility] 6720 (BEAKER) (test code = JODY Gipson [place] 1538) [address] BASIC METABOLIC [id number] 16:14:00 Test Item Value Reference Range Interpretation [...] S NOT APPLICABLE FOR DIALYSIS PATIEN TS. [id number] 16:07:00 Test Item Value Reference Range Interpretation Comments MAGNESIUM (BEAKER) (test code = 2.0 mg/dL 1.6-2.6 627) LACTIC ACID, [id number] 15:23:00 Test Item Value Reference Range Interpretation Comments LACTATE BLOOD ARTERIAL (2) 0.9 mmol/L 0.5-2.2 (BEAKER) (test code = 2874) RAD, CHEST, 1 VIEW, NON [id number] 15:07:00Reason for exam:- >hypoxemiaShould this be performed [...] MDReport Verified Date/Time: 08/10/2018 15:07:53 Reading Location: [address] Consult Reading Room BLOOD GAS, [id number] 14:53:00 Test Item Value Reference Range Interpretation [...] (test code = 1819) 44.0 % POCT-GLUCOSE [id number] 12:20:00 Test Item Value Reference Range Interpretation Comments POC-GLUCOSE METER 208 mg/dL 70-110 H TESTED AT [facility] 6720 (BEAKER) (test code = JODY [place] 4170) [address] CBC W/PLT COUNT & AUTO [id number] 08:56:00 Test Item Value Reference Range Interpretation [...] MDReport Verified Date/Time: 08/10/2018 08:03:28 Reading Location: [facility] Radiology Reading Room POCT- GLUCOSE [id number] 07:51:00 Test Item Value Reference Range Interpretation Comments POC-GLUCOSE METER 129 mg/dL 70-110 H TESTED AT [facility] 6720 (BEAKER) (test code = JODY [place] 1538) [address] POCT-GLUCOSE [id number] 06:38:00 Test Item Value Reference Range Interpretation Comments POC-GLUCOSE METER 193 mg/dL 70-110 H TESTED AT [facility] 6720 (BEAKER) (test code = JODY Gipson [place] 1538) [address] POCT-GLUCOSE [id number] 05:48:00 Test Item Value Reference Range Interpretation Comments POC-GLUCOSE METER 67 mg/dL 70-110 L TESTED AT [facility] 6720 (BEAKER) (test code = JODY Gipson [facility] [address] 1538) BASIC METABOLIC [id number] 05:07:00 Test Item Value Reference Range Interpretation [...] S NOT APPLICABLE FOR DIALYSIS PATIEN TS. [id number] 05:06:00 Test Item Value Reference Range Interpretation Comments MAGNESIUM (BEAKER) 2.0 mg/dL 1.6-2.6 Specimen slightly (test code = 627) hemolyzed POCT-GLUCOSE [id number] 20:02:00 Test Item Value Reference Range Interpretation Comments POC-GLUCOSE METER 95 mg/dL 70-110 TESTED AT [facility] 6720 (BEAKER) (test code = JODY Gipson [facility] [address] 1538) POCT-GLUCOSE [id number] 17:35:00 Test Item Value Reference Range Interpretation Comments POC-GLUCOSE METER 144 mg/dL 70-110 H TESTED AT [facility] 6720 (BEAKER) (test code = JODY Gipson [facility] 1538) [address] POCT-GLUCOSE [id number] 13:42:00 Test Item Value Reference Range Interpretation Comments POC-GLUCOSE METER 180 mg/dL 70-110 H TESTED AT [place] [address] (BEAKER) (test code = JODY Gipson [facility] 1538) [address] POCT-GLUCOSE [id number] 07:56:00 Test Item Value Reference Range Interpretation Comments POC-GLUCOSE METER 206 mg/dL 70-110 H TESTED AT [place] [address] (BEAKER) (test code = JODY Gipson [facility] 1538) [address] CBC W/PLT COUNT & AUTO [id number] 06:25:00 Test Item Value Reference Range Interpretation Comments WHITE BLOOD CELL COUNT (BEAKER) 13.6 K/ L 3.5-10.5 H (test code = 775) RED BLOOD CELL COUNT (BEAKER) 2.66 M/ L 3.93-5.22 L (test code [...] (BEAKER) (test code = 2801) BASIC METABOLIC [id number] 06:22:00 Test Item Value Reference Range Interpretation [...] PATIEN TS. RAD, CHEST, 1 VIEW, NON [id number] 05:59:00Reason for exam:->SOBShould this be performed at [...] Socorro Méndez Verified Date/Time: 08/09/2018 05:59:24 POCT-GLUCOSE [id number] 22:05:00 Test Item Value Reference Range Interpretation Comments POC-GLUCOSE METER 254 mg/dL 70-110 H TESTED AT [place] [address] ([facility]) (test code = JODY Gipson [facility] 1538) [address] POCT-GLUCOSE [id number] 18:33:00 Test Item Value Reference Range Interpretation Comments POC-GLUCOSE METER 271 mg/dL 70-110 H TESTED AT [place] [address] ([facility]) (test code = JODY Gipson [facility] 1538) [address] RAD, CHEST, 1 VIEW, NON [id number] 15:44:00Reason for exam:->IABP placementShould this be performed [...] Tracey Verified Date/Time: 08/08/2018 15:44:27 [facility] RAD, CHEST, 1 VIEW, NON [id number] 13:42:00Reason for exam:->IABP positionShould this be performed [...] humeral head. The bones appear demineralized. Signed: eHather Tracey Verified Date/Time: 08/08/2018 13:42:06 Reading Location: [facility] Mammo Reading Room POCT-GLUCOSE [id number] 13:28:00 Test Item Value Reference Range Interpretation Comments POC-GLUCOSE METER 294 mg/dL 70-110 H TESTED AT [place] [address] ([facility]) (test code = JODY [place] 1538) [address] RAD, CHEST, 1 VIEW, NON [id number] 08:20:00Reason for exam:->SOBShould this be performed at [...] Sauerort Verified Date/Time: 08/08/2018 08:20:51 Reading Location: [facility] Radiology Reading Room POCT-GLUCOSE [id number] 07:57:00 Test Item Value Reference Range Interpretation Comments POC-GLUCOSE METER 286 mg/dL 70-110 H TESTED AT [facility] 6720 (BEAKER) (test code = JODY VENEGAS 1538) [address] CBC W/PLT COUNT & AUTO [id number] 05:11:00 Test Item Value Reference Range Interpretation [...] H PERCENT (BEAKER) (test code = 2801) [id number] 04:43:00 Test Item Value Reference Range Interpretation Comments MAGNESIUM (BEAKER) (test code = 2.3 mg/dL 1.6-2.6 627) BASIC METABOLIC [id number] 04:43:00 Test Item Value Reference Range Interpretation [...] NOT APPLICABLE FOR DIALYSIS PATIEN TS. POCT-GLUCOSE [id number] 22:27:00 Test Item Value Reference Range Interpretation Comments POC-GLUCOSE METER 279 mg/dL 70-110 H TESTED AT [facility] 6720 (BEAKER) (test code = JODY Brandan [place] 1538) [address] BASIC METABOLIC [id number] 22:17:00 Test Item Value Reference Range Interpretation [...] S NOT APPLICABLE FOR DIALYSIS PATIEN TS. [id number] 22:13:00 Test Item Value Reference Range Interpretation Comments MAGNESIUM (BEAKER) (test code = 2.1 mg/dL 1.6-2.6 627) [id number] 19:37:00 Test Item Value Reference Range Interpretation Comments ACTIVATED CLOTTING TIME 268 sec TEST ED AT [place] [address] ([facility]) (test code = [place] [address]) [address] [id number] 18:30:00 Test Item Value Reference Range Interpretation Comments ACTIVATED CLOTTING TIME 257 sec TEST ED AT [place] [address] ([facility]) (test code = [place] [address]) [address] [id number] 17:58:00 Test Item Value Reference Range Interpretation Comments ACTIVATED CLOTTING TIME 219 sec TEST ED AT [place] [address] ([facility]) (test code = [place] [address]) [address] [id number] 17:58:00 Test Item Value Reference Range Interpretation Comments ACTIVATED CLOTTING TIME > sec OUTS [employer]OSSUE MEASURING (BEAKER) (test code = RANGET ESTED AT [place] [address]) [facility] [address] POCT-GLUCOSE [id number] 12:23:00 Test Item Value Reference Range Interpretation Comments POC-GLUCOSE METER 169 mg/dL 70-110 H TESTED AT [place] [address] ([facility]) (test code = JODY Gipson [facility] 1538) [address] RAD, CHEST, 1 VIEW, NON [id number] 09:10:00Reason for exam:->SOBShould this be performed at the bedside?->YesFINAL REPORT Chest dated 08/07/2018 COMPARISON: 08/06/2018 Clinical Information: SOB Comment: Heart is enlarged. Pulmonary vasculature is indistinct. Interstitial disease is seen bilaterally suggestive of vascular congestion or pulmonary edema. There is small bilateral pleural effusion. IMPRESSION: No interval change. Signed: Yuan Arango MDReport Verified Date/Time: 08/07/2018 09:10:23 Reading Location: [facility] Radiology Reading Room POCT-GLUCOSE [id number] 07:49:00 Test Item Value Reference Range Interpretation Comments POC-GLUCOSE METER 165 mg/dL 70-110 H TESTED AT [place] [address] ([facility]) (test code = JODY Gipson [facility] 1538) [address] COMPREHENSIVE METABOLIC [id number] 06:00:00 Test Item Value Reference Range Interpretation [...] S NOT APPLICABLE FOR DIALYSIS PATIEN TS. [id number] 05:56:00 Test Item Value Reference Range Interpretation Comments PHOSPHORUS (BEAKER) (test code = 2.9 mg/dL 2.3-4.7 604) [id number] 05:56:00 Test Item Value Reference Range Interpretation Comments MAGNESIUM (BEAKER) (test code = 2.0 mg/dL 1.6-2.6 627) CBC W/PLT COUNT & AUTO [id number] 05:42:00 Test Item Value Reference Range Interpretation [...] PERCENT (BEAKER) (test code = 2801) CALCIUM, [id number] 05:32:00 Test Item Value Reference Range Interpretation Comments CALCIUM IONIZED (BEAKER) (test 1.12 mmol/L 1.12-1.27 code = 698) PH, BLOOD (BEAKER) (test code = 7.36 1810) POCT-GLUCOSE [id number] 21:35:00 Test Item Value Reference Range Interpretation Comments POC-GLUCOSE METER 143 mg/dL 70-110 H TESTED AT [place] [address] [facility] (test code = [facility] 1538) [address] POCT-GLUCOSE [id number] 17:31:00 Test Item Value Reference Range Interpretation Comments POC-GLUCOSE METER 105 mg/dL 70-110 TESTED AT [place] [address] ([facility]) (test code = [facility] 1538) [address] POCT-GLUCOSE [id number] 12:46:00 Test Item Value Reference Range Interpretation Comments POC-GLUCOSE METER 159 mg/dL 70-110 H TESTED AT [place] [address] ([facility]) (test code = [facility] 1538) [address] POCT-GLUCOSE [id number] 07:40:00 Test Item Value Reference Range Interpretation Comments POC-GLUCOSE METER 120 mg/dL 70-110 H TESTED AT [facility] 6720 (BEAKER) (test code = JODY [place] 1538) [address] [id number] 04:52:00 Test Item Value Reference Range Interpretation Comments MAGNESIUM (BEAKER) (test code = 1.8 mg/dL 1.6-2.6 627) BASIC METABOLIC [id number] 04:52:00 Test Item Value Reference Range Interpretation [...] PATIEN TS. RAD, CHEST, 1 VIEW, NON [id number] 04:45:00Reason for exam:->SOBShould this be performed at [...] In summary, no significantinterval change. Signed: Sly Frankeport Verified Date/Time: 08/06/2018 04:45:08 Reading Location: [address] Reading Room APTT 2018-08-06 04:31:00 Test Item Value Reference Range Interpretation Comments PARTIAL THROMBOPLASTIN TIME 45.7 seconds 22.5-36.0 H (BEAKER) (test code = 760) 4 hours after the start of continuous infusion and 4 hours after any rate change CBC W/PLT COUNT & AUTO [id number] 04:23:00 Test Item Value Reference Range Interpretation [...] PERCENT (AKER) (test code = 2801) POCT-GLUCOSE [id number] 21:47:00 Test Item Value Reference Range Interpretation Comments POC-GLUCOSE METER 184 mg/dL 70-110 H TESTED AT [facility] 67 ([facility]) (test code = [facility] 1538) [address] POCT-GLUCOSE [id number] 17:15:00 Test Item Value Reference Range Interpretation Comments POC-GLUCOSE METER 120 mg/dL 70-110 H TESTED AT [place] [address] ([facility]) (test code = [facility] 1538) [address] POCT-GLUCOSE [id number] 12:00:00 Test Item Value Reference Range Interpretation Comments POC-GLUCOSE METER 226 mg/dL 70-110 H TESTED AT [place] [address] ([facility]) (test code = [place] [facility] 1538) [address] POCT-GLUCOSE [id number] 07:45:00 Test Item Value Reference Range Interpretation Comments POC-GLUCOSE METER 192 mg/dL 70-110 H TESTED AT [place] [address] ([facility]) (test code = [place] [facility] 1538) [address] RAD, CHEST, 1 VIEW, NON [id number] 07:45:00Reason for exam:->SOBShould this be performed at [...] Alejo Verified Date/Time: 08/05/2018 07:45:53 Reading Location: [facility] C013V Neuro Reading Room [id number] 06:25:00 Test Item Value Reference Range Interpretation Comments MAGNESIUM (BEAKER) (test code = 1.8 mg/dL 1.6-2.6 627) BASIC METABOLIC [id number] 06:25:00 Test Item Value Reference Range Interpretation [...] PATIEN TS. CBC W/PLT COUNT & AUTO [id number] 05:59:00 Test Item Value Reference Range Interpretation [...] PERCENT (BEAKER) (test code = 2801) POCT-GLUCOSE [id number] 22:07:00 Test Item Value Reference Range Interpretation Comments POC-GLUCOSE METER 183 mg/dL 70-110 H TESTED AT [facility] 6720 (BEAKER) (test code = JODY V[place]EG[place] 1538) [address] POCT-GLUCOSE [id number] 18:23:00 Test Item Value Reference Range Interpretation Comments POC-GLUCOSE METER 174 mg/dL 70-110 H TESTED AT [facility] 6720 (BEAKER) (test code = JODY [place] 1538) [address] C. DIFFICILE GDH [id number] 15:36:00 Test Item Value Reference Range Interpretation Comments CDT TOXIN (test code Negative Negative = [id number]) CDT GDH ANTIGEN Positive Negative A C. difficile present but (test code = toxin not detec elva. [id number]) Indicates colon ization with non-toxige alexis strain or level of tox in below detectable leve ls. No need for enteri c isolation. Sandoval atment is rarely needed ( only when strong clinical suspicion for Clostridium difficile infection) Testing performed by [employer] Assay. For GDH, published sensitivity of the assay is 98.7% compared to cytotoxicity testing. For Toxin AB, published sensitivity is 87.8% and specificity 99.4% compared to cytotoxicity testing.Verification of kit performance was done by the [facility] Microbiology Lab prior to clinical use.URINALYSIS W/ REFLEX URINE [id number] 15:18:00 Test Item Value Reference Range Interpretation [...] 514) SOURCE(BEAKER) (test code = 2795) POCT-GLUCOSE [id number] 13:03:00 Test Item Value Reference Range Interpretation Comments POC-GLUCOSE METER 213 mg/dL 70-110 H TESTED AT [facility] 6720 (BEAKER) (test code = JODY Gipson [facility] 1538) [address] OCCULT BLOOD, [id number] 11:58:00 Test Item Value Reference Range Interpretation Comments FECAL OCCULT BLOOD (BEAKER) (test Positive Negative A code = 618) POCT-GLUCOSE [id number] 08:00:00 Test Item Value Reference Range Interpretation Comments POC-GLUCOSE METER 127 mg/dL 70-110 H TESTED AT [facility] 6720 (BEAKER) (test code = [facility] 1538) [address] TROPONIN [id number] 07:07:00 Test Item Value Reference Range Interpretation Comments TROPONIN I (BEAKER) (test code = 44.85 ng/mL 0.00-0.03 397) Troponin I (TnI) levels [...] and persistent tachyarrhythmia.RAD, CHEST, 1 VIEW, NON [id number] 07:00:00Reason for exam:->SOBShould this be performed at [...] JR Mary, Radha ROACHeport Verified Date/Time: 08/04/2018 07:00:06 Reading Location: [facility] C0[facility] Neuro Reading Room COMPREHENSIVE METABOLIC [id number] 06:56:00 Test Item Value Reference Range Interpretation [...] S NOT APPLICABLE FOR DIALYSIS PATIEN TS. [id number] 06:55:00 Test Item Value Reference Range Interpretation Comments PHOSPHORUS (BEAKER) (test code = 2.8 mg/dL 2.3-4.7 604) [id number] 06:55:00 Test Item Value Reference Range Interpretation Comments MAGNESIUM (BEAKER) (test code = 1.9 mg/dL 1.6-2.6 627) CBC W/PLT COUNT & AUTO [id number] 06:12:00 Test Item Value Reference Range Interpretation [...] EOSINOPHILS ABSOLUTE COUNT 0.07 K/ L 0.04-0.36 ([facility]) (test code = 416) BASOPHILS ABSOLUTE COUNT ([facility]) 0.02 K/ L 0.01-0.08 (test code = 417) IMMATURE GRANULOCYTES-RELATIVE 1 % 0-1 PERCENT ([facility]) (test code = 2801) CALCIUM, [id number] 05:58:00 Test Item Value Reference Range Interpretation Comments CALCIUM IONIZED ([facility]) (test 1.11 mmol/L 1.12-1.27 L code = 698) PH, BLOOD ([facility]) (test code = 7.38 1810) POCT-GLUCOSE [id number] 22:08:00 Test Item Value Reference Range Interpretation Comments POC-GLUCOSE METER 163 mg/dL 70-110 H TESTED AT [place] [address] ([facility]) (test code = JODY Gipson [facility] 1538) [address] POCT-GLUCOSE [id number] 18:05:00 Test Item Value Reference Range Interpretation Comments POC-GLUCOSE METER 215 mg/dL 70-110 H TESTED AT [place] [address] ([facility]) (test code = [facility] [facility] 1538) [address] POCT-GLUCOSE [id number] 12:33:00 Test Item Value Reference Range Interpretation Comments POC-GLUCOSE METER 287 mg/dL 70-110 H TESTED AT [place] [address] ([facility]) (test code = JODY Gipson [facility] 1538) [address] TROPONIN [id number] 10:28:00 Test Item Value Reference Range Interpretation Comments TROPONIN I ([facility]) (test code = 56.87 ng/mL 0.00-0.03 [facility]) Troponin I (TnI) levels must be interpreted [...] = 380) RAD, CHEST, 1 VIEW, NON [id number] 08:51:00Reason for exam:->SOBShould this be performed at [...] MDReport Verified Date/Time: 08/03/2018 08:51:22 Reading Location: [facility] Radiology Reading Room [id number] 03:08:00 Test Item Value Reference Range Interpretation Comments FERRITIN (BEAKER) (test code = 361) 207 ng/mL 5-275 VITAMIN B12 AND [id number] 03:08:00 Test Item Value Reference Range Interpretation Comments VITAMIN B12 (BEAKER) (test code = 212 pg/mL 213-816 L 774) FOLATE (BEAKER) (test code = 362) 15.1 ng/mL >=7.0 COMPREHENSIVE METABOLIC [id number] 02:38:00 Test Item Value Reference Range Interpretation [...] S NOT APPLICABLE FOR DIALYSIS PATIEN TS. [id number] 02:34:00 Test Item Value Reference Range Interpretation Comments PHOSPHORUS (BEAKER) (test code = 4.7 mg/dL 2.3-4.7 604) [id number] 02:34:00 Test Item Value Reference Range Interpretation [...] 20-55 L (test code = 2590) CALCIUM, [id number] 02:26:00 Test Item Value Reference Range Interpretation Comments CALCIUM IONIZED (BEAKER) (test 1.12 mmol/L 1.12-1.27 code = 698) PH, BLOOD (BEAKER) (test code = 7.27 1810) CBC W/PLT COUNT & AUTO [id number] 02:20:00 Test Item Value Reference Range Interpretation [...] ABSOLUTE COUNT 0.01 K/ L 0.04-0.36 L ([facility]) (test code = 416) BASOPHILS ABSOLUTE COUNT ([facility]) 0.03 K/ L 0.01-0.08 (test code = 417) IMMATURE GRANULOCYTES-RELATIVE 1 % 0-1 PERCENT ([facility]) (test code = 2801) RETICULOCYTE [id number] 02:16:00 Test Item Value Reference Range Interpretation Comments RETICULOCYTE COUNT PCT ([facility]) (test 2.7 % 0.5-1.7 H code = 575) POCT-GLUCOSE [id number] 01:12:00 Test Item Value Reference Range Interpretation Comments POC-GLUCOSE METER 239 mg/dL 70-110 H TESTED AT [facility] 67 ([facility]) (test code = JODY Gipson [place] 1538) [address] POCT-GLUCOSE [id number] 20:38:00 Test Item Value Reference Range Interpretation Comments POC-GLUCOSE METER 207 mg/dL 70-110 H TESTED AT [place] [address] ([facility]) (test code = JODY Gipson [place] 1538) [address] POCT-GLUCOSE [id number] 16:39:00 Test Item Value Reference Range Interpretation Comments POC-GLUCOSE METER 216 mg/dL 70-110 H TESTED AT [place] [address] ([facility]) (test code = JODY Gipson [place] 1538) [address] [id number] 12:20:00 Test Item Value Reference Range Interpretation Comments PARTIAL THROMBOPLASTIN TIME 36.6 seconds 22.5-36.0 H ([facility]) (test code = 760) 4 hours after the start of continuous infusion and 4 hours after any rate change POCT-GLUCOSE [id number] 12:03:00 Test Item Value Reference Range Interpretation Comments POC-GLUCOSE METER 206 mg/dL 70-110 H TESTED AT [facility] 6720 ([facility]) (test code = JODY [place]ip[place] 1538) [address] POCT-GLUCOSE [id number] 12:03:00 Test Item Value Reference Range Interpretation Comments POC-GLUCOSE METER 193 mg/dL 70-110 H TESTED AT [facility] 67 ([facility]) (test code = JODY [place]ip[place] 1538) [address] POCT-GLUCOSE [id number] 12:02:00 Test Item Value Reference Range Interpretation Comments POC-GLUCOSE METER 234 mg/dL 70-110 H TESTED AT [facility] 67 ([facility]) (test code = JODY Gipson [place] 1538) [address] POCT-GLUCOSE [id number] 12:02:00 Test Item Value Reference Range Interpretation Comments POC-GLUCOSE METER 211 mg/dL 70-110 H TESTED AT [facility] 6720 ([facility]) (test code = JODY [place]ipson [place] 1538) [address] U/S, RENAL, [id number] 08:45:00Reason for exam:->CKDFINAL REPORT TECHNIQUE: Grayscale ultrasound [...] MDReport Verified Date/Time: 08/02/2018 08:45:50 Reading Location: [address] Radiology Reading Room Electronically signedby: ROB NAVARRO MD on 08/02/2018 08:45 AMPOCT-GLUCOSE [id number] 08:25:00 Test Item Value Reference Range Interpretation Comments POC-GLUCOSE METER 237 mg/dL 70-110 H TESTED AT [facility] 67 ([facility]) (test code = JODY Gipson [facility] 1538) [address] [id number] 08:19:00 Test Item Value Reference Range Interpretation Comments PARTIAL THROMBOPLASTIN TIME 38.2 seconds 22.5-36.0 H (BEAKER) (test code = 760) 4 hours after the start of continuous infusion and 4 hours after any rate change POCT-GLUCOSE [id number] 07:14:00 Test Item Value Reference Range Interpretation Comments POC-GLUCOSE METER 246 mg/dL 70-110 H TESTED AT [facility] 6720 ([facility]) (test code = JODY [place]ip[place] 1538) [address] COMPREHENSIVE METABOLIC [id number] 04:58:00 Test Item Value Reference Range Interpretation [...] I S NOT APPLICABLE FOR DIALYSIS PATIEN [id number] 04:52:00 Test Item Value Reference Range Interpretation Comments PARTIAL THROMBOPLASTIN TIME 37.5 seconds 22.5-36.0 H (BEAKER) (test code = 760) 4 hours after the start of continuous infusion and 4 hours after any rate change RAD, CHEST, 1 VIEW, NON [id number] 04:44:00Reason for exam:->impella positionShould this be performed [...] 0-100 H (BEAKER) (test code = 700) [id number] 04:40:00 Test Item Value Reference Range Interpretation Comments MAGNESIUM (BEAKER) 2.0 mg/dL 1.6-2.6 Specimen slightly (test code = 627) hemolyzed [id number] 04:40:00 Test Item Value Reference Range Interpretation Comments PHOSPHORUS (BEAKER) 4.7 mg/dL 2.3-4.7 Specimen slightly (test code = 604) hemolyzed URIC [id number] 04:40:00 Test Item Value Reference Range Interpretation Comments URIC ACID (BEAKER) 9.1 mg/dL 2.6-7.2 H Specimen slightly (test code = 773) hemolyzed LACTIC ACID, [id number] 04:31:00 Test Item Value Reference Range Interpretation Comments LACTATE BLOOD 0.9 mmol/L 0.5-2.2 Specimen sligh tly ARTERIAL (2) (BEAKER) hemoly zed (test code = 2874) BLOOD GAS, [id number] 04:25:00 Test Item Value Reference Range Interpretation [...] (test code = 1819) 36.0 % GLUCOSE-STAT [id number] 04:25:00 Test Item Value Reference Range Interpretation Comments GLUCOSE RANDOM (BEAKER) (test code 272 mg/dL 70-110 H = 652) HGB/HCT (H&H) - STAT [id number] 04:25:00 Test Item Value Reference Range Interpretation Comments HEMOGLOBIN (BEAKER) (test code = 10.9 g/dL 12.0-15.0 L 410) HEMATOCRIT (BEAKER) (test code = 32.0 % 36.0-45.0 L 411) CBC W/PLT COUNT & AUTO [id number] 04:24:00 Test Item Value Reference Range Interpretation [...] PERCENT (BEAKER) (test code = 2801) CALCIUM, [id number] 04:22:00 Test Item Value Reference Range Interpretation Comments CALCIUM IONIZED (BEAKER) (test 1.20 mmol/L 1.12-1.27 code = 698) PH, BLOOD (BEAKER) (test code = 7.31 1810) SODIUM NA-STAT [id number] 04:21:00 Test Item Value Reference Range Interpretation Comments SODIUM (BEAKER) (test code = 381) 136 meq/L 135-148 POTASSIUM-STAT [id number] 04:21:00 Test Item Value Reference Range Interpretation Comments POTASSIUM (BEAKER) (test code = 4.6 meq/L 3.6-5.5 379) LACTIC ACID, [id number] 00:13:00 Test Item Value Reference Range Interpretation Comments LACTATE BLOOD ARTERIAL (2) 0.7 mmol/L 0.5-2.2 (BEAKER) (test code = 2874) SODIUM NA-STAT [id number] 23:59:00 Test Item Value Reference Range Interpretation Comments SODIUM (BEAKER) (test code = 381) 136 meq/L 135-148 POTASSIUM-STAT [id number] 23:59:00 Test Item Value Reference Range Interpretation Comments POTASSIUM (BEAKER) (test code = 4.8 meq/L 3.6-5.5 379) BLOOD GAS, [id number] 23:59:00 Test Item Value Reference Range Interpretation [...] (test code = 1819) 36.0 % GLUCOSE-STAT [id number] 23:59:00 Test Item Value Reference Range Interpretation Comments GLUCOSE RANDOM (BEAKER) (test code 275 mg/dL 70-110 H = 652) HGB/HCT (H&H) - STAT [id number] 23:59:00 Test Item Value Reference Range Interpretation Comments HEMOGLOBIN (BEAKER) (test code = 11.3 g/dL 12.0-15.0 L 410) HEMATOCRIT (BEAKER) (test code = 33.0 % 36.0-45.0 L 411) [id number] 21:53:00 Test Item Value Reference Range Interpretation Comments PARTIAL THROMBOPLASTIN TIME 63.4 seconds 22.5-36.0 H (BEAKER) (test code = 760) 4 hours after the start of continuous infusion and 4 hours after any rate change COMPREHENSIVE METABOLIC [id number] 19:43:00 Test Item Value Reference Range Interpretation [...] DIALYSIS PATIEN TS. Call k > 5, [id number] 19:41:00 Test Item Value Reference Range Interpretation Comments SODIUM (BEAKER) (test 137 meq/L 136-145 code = 381) POTASSIUM (BEAKER) 4.8 meq/L 3.5-5.1 Specimen slightly (test code = 379) hemolyzed CHLORIDE (BEAKER) 109 meq/L 98-107 H (test code = 382) CO2 (BEAKER) (test 20 meq/L 22-29 L code = 355) Call k > 5, [id number] 19:37:00 Test Item Value Reference Range Interpretation [...] INR is2.5-3.5 for patients wiht mechanical heart valves.[id number] 19:36:00 Test Item Value Reference Range Interpretation Comments FIBRINOGEN LEVEL (BEAKER) (test 336 mg/dl 225-434 code = 658) LACTIC ACID, [id number] 19:34:00 Test Item Value Reference Range Interpretation [...] (BEAKER) (test code = 413) BLOOD GAS, [id number] 19:16:00 Test Item Value Reference Range Interpretation [...] (test code = 1819) 36.0 % GLUCOSE-STAT [id number] 19:16:00 Test Item Value Reference Range Interpretation Comments GLUCOSE RANDOM (BEAKER) (test code 231 mg/dL 70-110 H = 652) HGB/HCT (H&H) - STAT [id number] 19:16:00 Test Item Value Reference Range Interpretation Comments HEMOGLOBIN (BEAKER) (test code = 11.5 g/dL 12.0-15.0 L 410) HEMATOCRIT (BEAKER) (test code = 34.0 % 36.0-45.0 L 411) CALCIUM, [id number] 19:15:00 Test Item Value Reference Range Interpretation Comments CALCIUM IONIZED (BEAKER) (test 1.26 mmol/L 1.12-1.27 code = 698) PH, BLOOD (BEAKER) (test code = 7.35 1810) OXYGEN SATURATION, [id number] 19:14:00 Test Item Value Reference Range Interpretation Comments O2 SATURATION (MEASURED) (BEAKER) 41.9 % (test code = 1455) SODIUM NA-STAT [id number] 19:14:00 Test Item Value Reference Range Interpretation Comments SODIUM (BEAKER) (test code = 381) 138 meq/L 135-148 POTASSIUM-STAT [id number] 19:14:00 Test Item Value Reference Range Interpretation Comments POTASSIUM (BEAKER) (test code = 4.7 meq/L 3.6-5.5 379) [id number] 16:45:00 Test Item Value Reference Range Interpretation Comments ACTIVATED CLOTTING TIME 389 sec TEST ED AT [place] [address] (BEAKER) (test code = JODY Gip[place] [address]) [address] HEMOGLOBIN AND [id number] 16:38:00 Test Item Value Reference Range Interpretation Comments HEMOGLOBIN (BEAKER) (test code = 10.1 GM/DL 11.2-15.7 L 410) HEMATOCRIT (BEAKER) (test code = 31.6 % 34.1-44.9 L 411) PLATELET AGGREGATION: FUNCTION [id number] 16:05:00 Test Item Value Reference Range Interpretation Comments WEAK ADP 34 % 60-91 L RESULT(BEAKER) (test code = 2135) PLATELET FUNCTION 0-39% indicates marked SCREEN INTERP platelet dysfunction (BEAKER) (test code = 2173) [id number] Talia Villarreal MD (BEAKER) (test code = (electronic signature) 7722) PLATELET COUNT AGG 186 K/CU MM 150-450 (BEAKER) (test code = 2376) Platelet Function Screen results may be falsely low with platelet counts<100,000/cu mm.[id number] 15:02:00 Test Item Value Reference Range Interpretation Comments ACTIVATED CLOTTING TIME 411 sec TEST ED AT [place] [address] ([facility]) (test code = JODY [place]ip[place] [address]) [address] POCT-GLUCOSE [id number] 12:17:00 Test Item Value Reference Range Interpretation Comments POC-GLUCOSE METER 103 mg/dL 70-110 TESTED AT [place] [address] ([facility]) (test code = [facility] 1538) [address] POCT-GLUCOSE [id number] 08:18:00 Test Item Value Reference Range Interpretation Comments POC-GLUCOSE METER 388 mg/dL 70-110 H TESTED AT [place] [address] ([facility]) (test code = [facility] 1538) [address] HEPATIC FUNCTION [id number] 08:09:00 Test Item Value Reference Range Interpretation Comments TOTAL PROTEIN (AKER) 6.2 gm/dL 6.0-8.3 Speci men slightly (test code = 770) hemolyzed ALBUMIN (AKER) (test 3.4 g/dL 3.5-5.0 L Speci men slightly code = 1145) hemolyzed BILIRUBIN TOTAL 0.4 mg/dL 0.2-1.2 Specimen sli ghtly ([facility]) (test code = hemoly zed 377) BILIRUBIN DIRECT 0.1 mg/dL 0.1-0.5 Specimen sl ightly (AKER) (test code = hemoly zed 706) ALKALINE PHOSPHATASE 59 U/L 40-150 (BEAKER) (test code = 346) AST (SGOT) (BEAKER) 19 U/L 5-34 Specimen slightly (test code = 353) hemolyzed ALT (SGPT) (AKER) 10 U/L 6-55 Specimen slightly (test code = 347) hemolyzed TROPONIN [id number] 06:39:00 Test Item Value Reference Range Interpretation Comments TROPONIN I (BEAKER) (test code = 0.26 ng/mL 0.00-0.03 [facility]) Troponin I (TnI) levels must be interpreted [...] acidosis, acute neurological disease, and persistent tachyarrhythmia.POCT-GLUCOSE [id number] 06:36:00 Test Item Value Reference Range Interpretation Comments POC-GLUCOSE METER 415 mg/dL 70-110 HH TESTED AT [facility] 6720 (BEAKER) (test code = [place] [address]) [address] BASIC METABOLIC [id number] 06:10:00 Test Item Value Reference Range Interpretation [...] S NOT APPLICABLE FOR DIALYSIS PATIEN TS. [id number] 06:03:00 Test Item Value Reference Range Interpretation Comments MAGNESIUM (BEAKER) 2.2 mg/dL 1.6-2.6 Specimen slightly (test code = 627) hemolyzed THROMBIN [id number] 05:09:00 Test Item Value Reference Range Interpretation Comments THROMBIN TIME (BEAKER) (test code = 64.9 secs 13.8-20.0 H 550) Draw baseline aPTT prior to [id number] 05:08:00 Test Item Value Reference Range Interpretation Comments PARTIAL THROMBOPLASTIN TIME 43.1 seconds 22.5-36.0 H (BEAKER) (test code = 760) Draw baseline aPTT prior to infusionPROTHROMBIN TIME/[id number] 05:07:00 Test Item Value Reference Range Interpretation [...] to infusion CBC W/PLT COUNT & AUTO [id number] 04:59:00 Test Item Value Reference Range Interpretation [...] = 2801) RAD, CHEST, 1 VIEW, NON [id number] 04:33:00Reason for exam:->preopShould this be performed at the bedside?->YesFINAL REPORT RAD, CHEST, 1 VIEW, NON DEPT INDICATION: preop COMPARISON: Prior day's exam FINDINGS: Portable frontal view of the chest. IMPRESSION: Support Lines: Stable. Lungs and pleura: Unchanged airspace and pleural opacities. No pneumothorax.Heart and mediastinum: Stable contours. Additional findings: None. Signed: [facility] Verified Date/Time: 08/01/2018 04:33:15 RAD, CHEST, 1 VIEW, NON [id number] 00:02:00Reason for exam:->Intraaortic balloon pump insertionShould this [...] of the cervical spine. Signed: Socorro Méndez [facility] Verified Date/Time: 08/01/2018 00:02:19 Electronically signed by: SOCORRO MÉNDEZ MD on08/01/2018 12:02 AMTSH/FREE T4 IF [id number] 21:34:00 Test Item Value Reference Range Interpretation Comments THYROID STIMULATING HORMONE 0.99 uIU/mL 0.35-4.94 (BEAKER) (test code = 772) TROPONIN [id number] 21:26:00 Test Item Value Reference Range Interpretation [...] Reference Range Interpretation Comments B-TYPE NATRIURETIC PEPTIDE (JEEVANAKER) 633 pg/mL 0-100 H (test code = 700) RAD, CHEST, 1 VIEW, NON [id number] 21:20:00Reason for exam:->unstable anginaShould this be performed [...] MDReport Verified Date/Time: 07/31/2018 21:20:52 Reading Location: [address] Consult Reading Room [facility] METABOLIC [id number] 21:18:00 Test Item Value Reference Range Interpretation [...] APPLICABLE FOR DIALYSIS PATIEN TS. HEPATIC FUNCTION [id number] 21:15:00 Test Item Value Reference Range Interpretation [...] (test code = 10 U/L 6-55 347) [id number] 20:57:00 Test Item Value Reference Range Interpretation Comments PARTIAL THROMBOPLASTIN TIME 27.7 seconds 22.5-36.0 (BEAKER) (test code = 760) PROTHROMBIN [id number] 20:56:00 Test Item Value Reference Range Interpretation [...] mechanical heart valves.CBC W/PLT COUNT & AUTO [id number] 20:50:00 Test Item Value Reference Range Interpretation [...] 0-1 PERCENT (BEAKER) (test code = 2801) [id number] 19:45:00 Test Item Value Reference Range Interpretation [...] as d efined by WHO. COMPREHENSIVE METABOLIC [id number] 16:08:00 Test Item Value Reference Range Interpretation [...] code = ALKP) - XR CHEST 1 [id number] 15:43:00 FAX: Rhett Jo [phone] Camps: ER St: [facility] 1940 Age/S: 78/F [address] Unit #: [id number] Loc: VR.DIMAS [place], [place] [address] Phys: Rhett Sams MD Acct: [id number] Dis Date: Status: REG ER PHONE #: [phone] Exam Date: 07/28/2018 1527 FAX #: [phone] Reason: CP EXAMS: CPT CODE: [id number] XR CHEST 1 V 50585 Examination: Chest 1 view Location code: S17 Comparison: None Discussion: Clinical history is remarkable for chest tightness. Cardiac silhouette is slightly enlarged, atherosclerotic change present. There are coarsened interstitial changes present bilaterally, mild bilateral parenchymal basilar scarring noted. Impression: 1. Coarsened interstitial changes with likely bilateral basilar parenchymal scarring. at 1633 Reported and signed by: YUAN BUNN M.D. CC: Rhett Sams MDTechnologist: HESHAM FONG RT,(R) ARRT Transcribed Date/Time/By: 07/28/2018 (3854) :[id number] Orig Print D/T: S: 07/28/2018 (7512) Automated exposure control, iterative reconstruction technique, and/oradjustment of mA and/or kV according to patient's size was utilizedfor optimum radiation dose reduction. PAGE 1 Signed Report TROPONIN I [id number] 15:37:00 Test Item Value Reference Range Interpretation Comments TROPONIN I RAPID 0.03 NG/ML 0.00-0.08 N 0.00 - 0.08 (test code = Normal0.09 - 0. 40 TROPIRAP) Indeterminate f or AMI 0.41 and above Compatible with AMI CHEMISTRY 8 [id number] 15:36:00 Test Item Value Reference Range Interpretation [...] 2.6 MG/DL 0.6-1.0 H CREATBED) CBC W/AUTO [id number] 15:34:00 Test Item Value Reference Range Interpretation [...]
--- OUTSIDE RECORDS SUMMARY | 2019-09-21 11:38 | XMS REPORT ---
[...] Coronary artery disease involving I25.110 Active [place] coronary artery of [place] heart with unstable angina pectoris Problem History of cholecystectomy Z90.49 A ctive Problem Stented coronary artery Z95.5 Acti ve Problem 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 Ac tive classified elsewhere Problem Chronic kidney disease, stage 4 N18.4 Active (severe) Problem At risk for falling Z91.81 Active Problem Atherosclerosis of [place] coronary I25.10 Active artery Problem Cervical stenosis of spine M48.02 A ctive Problem Type 2 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 Problem Hypertensive heart disease without I11.9 Active heart failure Problem 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
--- OUTSIDE RECORDS SUMMARY | 2019-09-21 11:38 | XMS REPORT ---
[...] Problem Coronary artery disease involving I25.110 Active [place] coronary artery of [place] heart with unstable angina pectoris Problem History of cholecystectomy Z90.49 A ctive Problem Stented coronary artery Z95.5 Acti ve Problem 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 Ac tive classified elsewhere Problem Chronic kidney disease, stage 4 N18.4 Active (severe) Problem At risk for falling Z91.81 Active Problem Atherosclerosis of [place] coronary I25.10 Active artery Problem Cervical stenosis of spine M48.02 A ctive Problem Type 2 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 Problem Hypertensive heart disease without I11.9 Active heart failure 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
--- OUTSIDE RECORDS SUMMARY | 2019-09-21 11:38 | XMS REPORT ---
[...] Problem Coronary artery disease involving I25.110 Active [place] coronary artery of [place] heart with unstable angina pectoris Problem History of cholecystectomy Z90.49 A ctive Problem Stented coronary artery Z95.5 Acti ve Problem 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 Ac tive classified elsewhere Problem Chronic kidney disease, stage 4 N18.4 Active (severe) Problem At risk for falling Z91.81 Active Problem Atherosclerosis of [place] coronary I25.10 Active artery Problem Cervical stenosis of spine M48.02 A ctive Problem Type 2 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 Problem Hypertensive heart disease without I11.9 Active heart failure 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
--- OUTSIDE RECORDS SUMMARY | 2019-09-21 11:38 | XMS REPORT ---
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
--- OUTSIDE RECORDS SUMMARY | 2019-09-21 11:38 | XMS REPORT ---
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
--- OUTSIDE RECORDS SUMMARY | 2019-09-21 11:38 | XMS REPORT ---
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
--- NOTE | 2019-09-21 12:18 | RAD REPORT ---
EXAM DESCRIPTION: RAD - Chest Single View - 09/21/2019 12:10 pm CLINICAL HISTORY: DYSPNEA Chest pain. COMPARISON: Chest Single View dated 09/01/2019; Chest Pa And Lat (2 Views) dated 08/26/2019; Chest Sing le View dated 08/21/2019; Chest Single View dated 05/26/2019 FINDINGS: Portable technique limits examination quality. Moderate bilateral pulmonary opacities are present likely representing pulmonary edema. The heart is mildly enlarged in size. Trace pleural effusions. Right-sided venous catheter has tip in the right at rium. Tip of the PICC line is in the SVC. IMPRESSION: Moderate CHF versus volume overload pattern.
[2019-09-21 12:26] LABS: Absolute Lymphocytes (CBC) 0.6 K/uL (0.7-4.9); Basophils % 0.4 % (0-1.3); Hematocrit 32.7 % (36.0-45.0); Lymphocytes % 6.7 % (15.3-44.8); MPV 8.4 fL (7.6-11.3); RBC Red Blood Cell Count 3.49 M/uL (3.86-4.86)
[2019-09-21 12:31] LABS: Protime INR 1.12
[2019-09-21] MEDS ORDERED: FUROSEMIDE 40 MG/4 ML VIAL ONE (12:39)
[2019-09-21 12:49] LABS: Albumin 3.1 g/dL (3.4-5.0); Bilirubin Direct 0.1 mg/dL (0-0.2); Bilirubin Total 0.5 mg/dL (0.2-1.0); Magnesium 1.9 mg/dL (1.8-2.4); Potassium 4.3 mmol/L (3.5-5.1); Protein, Total 6.7 g/dL (6.4-8.2); Troponin (Emerg Dept Use Only) 0.46 ng/mL (0.0-0.045)
--- NOTE | 2019-09-21 14:17 | EDPHYS ---
Physician Documentation [facility] Name: Suzan Gonzalez Age: 79 yrs Sex: Female : 1940 Arrival Date: 09/21/2019 Time: 11:23 Bed 5 Private MD: ED Physician Suraj Barkley Historical: - Allergies: 09/20 11:44 "every pain narcotic"; ph 11:44 Bactrim; ph 11:44 Benadryl; ph 11:44 Iodine; ph 11:44 Levaquin; ph 11:44 Levofloxacin; ph 11:44 Morphine; ph 11:44 Sulfa (Sulfonamide Antibiotics); ph - Home Meds: 11:44 aspirin 81 mg Oral chew 1 tab once daily [Active]; atorvastatin 80 mg Oral tab 1 tab ph once daily [Active]; bumetanide 1 mg Oral tab 1 tab 2 times per day [Active]; folic acid 1 mg Oral tab 1 tab once daily [Active]; metoprolol tartrate 100 mg Oral tab 1 tab 2 times per day [Active]; calcitriol 0.5 mcg Oral cap 1 cap once daily [Active]; Tradjenta 5 mg Oral tab 1 tab once daily [Active]; Tresiba FlexTouch U-100 100 unit/mL (3 mL) subcutaneous inpn daily [Active]; nitroglycerin 0.4 mg SL subl 1 tab every 5 minutes [Active]; Ranexa 500 mg Oral Tb12 1 tab 2 times per day [Active]; BRILINTA 90 mg Oral tab 1 tab 2 times per day [Active]; Probiotic Oral daily [Active]; - PMHx: 11:44 Diabetes - NIDDM; kidney problems; Dialysis; ph - PSHx: 11:44 Angioplasty; ph - Immunization history:: Adult Immunizations unknown. - Social history:: Smoking status: Patient denies any tobacco usage or history of. Vital Signs: 11:23 BP 146 / 67; Pulse 83; Resp 24; Temp 98.6(O); Pulse Ox 95% on R/A; Weight 73.48 kg; ph Height 5 ft. 1 in. (154.94 cm); 12:20 BP 137 / 57; Pulse 79; Resp 26; Pulse Ox 99% on 2 lpm NC; ph 13:30 BP 149 / 69; Pulse 79; Resp 20; Pulse Ox 99% on 2 lpm NC; ph 14:30 BP 132 / 68; Pulse 81; Resp 18; Pulse Ox 98% on 2 lpm NC; ph 16:00 BP 152 / 72; Pulse 77; Resp 22; Pulse Ox 97% on R/A; ph 17:00 BP 159 / 68; Pulse 76; Resp 20; Temp 98.4; Pulse Ox 97% on R/A; ph 11:23 Body Mass Index 30.61 (73.48 kg, 154.94 cm) ph MDM: 11:51 Patient medically screened. [facility] 14:12 Data reviewed: vital signs, nurses notes, lab test result(s), EKG, radiologic studies, 8 plain films, and as a result, I will admit patient. Data interpreted: Pulse oximetry: on room air is 99 %. Interpretation: normal. Counseling: I had a detailed discussion with the patient and/or guardian regarding: the historical points, exam findings, and any diagnostic results supporting the discharge/admit diagnosis, lab results, radiology results, the need for further work-up and treatment in the hospital. 09/20 11:51 Order name: Basic Metabolic Panel [facility] 09/20 11:51 Order name: CBC with Diff; Complete Time: 13:12 [facility] 09/20 11:51 Order name: LFT's; Complete Time: 13:23 [facility] 09/20 11:51 Order name: Magnesium; Complete Time: 13:23 [facility] 09/20 11:51 Order name: NT PRO-BNP; Complete Time: 13:23 [facility] 09/20 11:51 Order name: PT-INR; Complete Time: 13:12 [facility] 09/20 11:51 Order name: Troponin (emerg Dept Use Only); Complete Time: 13:23 [facility] 09/20 13:24 Interpretation: TROPED 0.46. [facility] 09/20 11:52 Order name: Basic Metabolic Panel; Complete Time: 13:23 [facility]DA[facility] 09/20 15:06 Order name: Urinalysis [facility] 09/20 15:06 Order name: Basic Metabolic Panel [facility] 09/20 15:06 Order name: Basic Metabolic Panel [facility] 09/20 15:06 Order name: Basic Metabolic Panel [facility] 09/20 15:06 Order name: CBC with Automated Diff [facility] 09/20 15:06 Order name: CBC with Automated Diff [facility] 09/20 11:51 Order name: XRAY Chest (1 view); Complete Time: 12:23 8 09/20 11:51 Order name: EKG; Complete Time: 11:52 jr8 09/20 11:51 Order name: Cardiac monitoring; Complete Time: 12:05 jr8 09/20 11:51 Order name: EKG - Nurse/Tech; Complete Time: 12:05 8 09/20 11:51 Order name: IV Saline Lock; Complete Time: 12:05 jr8 09/20 11:51 Order name: Labs collected and sent; Complete Time: 12:20 jr8 09/20 11:51 Order name: O2 Per Protocol; Complete Time: 12:05 jr8 09/20 11:51 Order name: O2 Sat Monitoring; Complete Time: 12:05 8 09/20 15:01 Order name: CONS Physician Consult EDMS 09/20 15:06 Order name: Consistent Carb (ADA) 2000 Danilo EDMS 09/20 15:06 Order name: CBC with Automated Diff EDMS 09/20 15:06 Order name: Magnesium EDMS 09/20 15:06 Order name: Magnesium EDMS Administered Medications: 12:32 Drug: Lasix 40 mg Route: IVP; Site: PICC; hb 16:08 Follow up: Response: No adverse reaction ph Disposition: 18:52 Co-signature as Attending Physician, Suraj Barkley MD I agree with the assessment and kdr plan of care. Disposition: 09/21/19 14:15 Hospitalization ordered by Mino Hdez for Observation. Preliminary diagnosis are Acute systolic (congestive) heart failure, End stage renal disease. - Bed requested for Telemetry/MedSurg (observation). - Status is Observation. ph - Condition is Stable. - Problem is new. - Symptoms have improved. Signatures: Dispatcher [employer] EDAZ Lisa Dudley RN RN dw Rittger, Kevin, MD MD kdr Roszak, Josh, PA PA jr8 Basia Duffy RN RN Erin Nguyễn, SOLITARIO RN hb Corrections: (The following items were deleted from the chart) 15:50 14:15 Hospitalization Ordered by Mino dHez DO for Observation. Preliminary sylvia diagnosis is Acute systolic (congestive) heart failure; End stage renal disease. Bed requested for Telemetry/MedSurg (observation). Status is Observation. Condition is Stable. Problem is new. Symptoms have improved. jr8 17:40 15:50 09/21/2019 14:15 Hospitalization Ordered by Mino Hdez DO for Observation. ph Preliminary diagnosis is Acute systolic (congestive) heart failure; End stage renal disease. Bed requested for Telemetry/MedSurg (observation). Status is Observation. Condition is Stable. Problem is new. Symptoms have improved. dw
--- NOTE | 2019-09-21 14:17 | ER ---
Nurse's Notes [facility] Name: Suzan Gonzalez Age: 79 yrs Sex: Female : 1940 Arrival Date: 09/21/2019 Time: 11:23 Bed 5 Private MD: Diagnosis: Acute systolic (congestive) heart failure;End stage renal disease Presentation: 09/20 11:23 Chief complaint: EMS states: EMS called for SOB, pt states that she has just started ph dialysis, 2nd session was yesterday, reports that SOB began yesterday before dialysis but did not improve afterwards, Spo2 95% RA, improved to 97% on 2L NC, pt also reports pain in back between shoulder blades, denies cough or fever, was COVID negative when swabbed approx 2 weeks ago, BGL 234, BP 148/91, 12 lead NSR, PICC line in place for antibiotics r/t toenail removal. Coronavirus screen: Client denies travel out of the [place] in the last 14 days. shortness of breath, The client reports previous COVID testing was negative. Ebola Screen: No symptoms or risks identified at this time. Initial Sepsis Screen: Does the patient meet any 2 criteria? No. Patient's initial sepsis screen is negative. Does the patient have a suspected source of infection? No. Patient's initial sepsis screen is negative. Risk Assessment: Do you want to hurt yourself or someone else? Patient reports no desire to harm self or others. Onset of symptoms was September 21, 2019. 11:23 Method Of Arrival: EMS: [facility] ph 11:23 Acuity: SERGIO 3 ph Historical: - Allergies: 11:44 "every pain narcotic"; ph 11:44 Bactrim; ph 11:44 Benadryl; ph 11:44 Iodine; ph 11:44 Levaquin; ph 11:44 Levofloxacin; ph 11:44 Morphine; ph 11:44 Sulfa (Sulfonamide Antibiotics); ph - Home Meds: 11:44 aspirin 81 mg Oral chew 1 tab once daily [Active]; atorvastatin 80 mg Oral tab 1 tab ph once daily [Active]; bumetanide 1 mg Oral tab 1 tab 2 times per day [Active]; folic acid 1 mg Oral tab 1 tab once daily [Active]; metoprolol tartrate 100 mg Oral tab 1 tab 2 times per day [Active]; calcitriol 0.5 mcg Oral cap 1 cap once daily [Active]; Tradjenta 5 mg Oral tab 1 tab once daily [Active]; Tresiba FlexTouch U-100 100 unit/mL (3 mL) subcutaneous inpn daily [Active]; nitroglycerin 0.4 mg SL subl 1 tab every 5 minutes [Active]; Ranexa 500 mg Oral Tb12 1 tab 2 times per day [Active]; BRILINTA 90 mg Oral tab 1 tab 2 times per day [Active]; Probiotic Oral daily [Active]; - PMHx: 11:44 Diabetes - NIDDM; kidney problems; Dialysis; ph - PSHx: 11:44 Angioplasty; ph - Immunization history:: Adult Immunizations unknown. - Social history:: Smoking status: Patient denies any tobacco usage or history of. Screenin:34 Abuse screen: Denies threats or abuse. Denies injuries from another. Nutritional ph screening: No deficits noted. Tuberculosis screening: No symptoms or risk factors identified. Fall Risk None identified. Assessment: 11:47 General: Appears in no apparent distress. comfortable, well groomed, Behavior is calm, ph cooperative, appropriate for age. Pain: Complains of pain in thoracic area. Neuro: Level of Consciousness is awake, alert, obeys commands, Oriented to person, place, time, situation. Cardiovascular: Reports shortness of breath, Denies chest pain. Cardiovascular: Capillary refill < 3 seconds in bilateral fingers Patient's skin is warm and dry. Edema is absent. Dialysis shunt: in the anterior aspect of right upper chest, with no edema, no bleeding noted Angelito cath. Respiratory: Reports shortness of breath at rest Airway is patent Respiratory effort is even, unlabored, Respiratory pattern is tachypnea. GI: No signs and/or symptoms were reported involving the gastrointestinal system. Derm: Skin is intact, is healthy with good turgor, Skin is pink, warm \\T\\ dry. Musculoskeletal: Circulation, motion, and sensation intact. Range of motion: intact in all extremities. 12:30 Reassessment: Patient appears in no apparent distress at this time. Patient and/or ph family updated on plan of care and expected duration. Pain level reassessed. Patient is alert, oriented x 3, equal unlabored respirations, skin warm/dry/pink. 13:51 Reassessment: Patient appears in no apparent distress at this time. Patient and/or ph family updated on plan of care and expected duration. Pain level reassessed. Patient is alert, oriented x 3, equal unlabored respirations, skin warm/dry/pink. 15:14 Reassessment: Patient appears in no apparent distress at this time. Patient and/or ph family updated on plan of care and expected duration. Pain level reassessed. Patient is alert, oriented x 3, equal unlabored respirations, skin warm/dry/pink. 16:30 Reassessment: Patient appears in no apparent distress at this time. Patient and/or ph family updated on plan of care and expected duration. Pain level reassessed. Patient is alert, oriented x 3, equal unlabored respirations, skin warm/dry/pink. Vital Signs: 11:23 BP 146 / 67; Pulse 83; Resp 24; Temp 98.6(O); Pulse Ox 95% on R/A; Weight 73.48 kg; ph Height 5 ft. 1 in. (154.94 cm); 12:20 BP 137 / 57; Pulse 79; Resp 26; Pulse Ox 99% on 2 lpm NC; ph 13:30 BP 149 / 69; Pulse 79; Resp 20; Pulse Ox 99% on 2 lpm NC; ph 14:30 BP 132 / 68; Pulse 81; Resp 18; Pulse Ox 98% on 2 lpm NC; ph 16:00 BP 152 / 72; Pulse 77; Resp 22; Pulse Ox 97% on R/A; ph 17:00 BP 159 / 68; Pulse 76; Resp 20; Temp 98.4; Pulse Ox 97% on R/A; ph 11:23 Body Mass Index 30.61 (73.48 kg, 154.94 cm) ph ED Course: 11:23 Patient arrived in ED. ph 11:34 Triage completed. ph 11:37 Patient has correct armband on for positive identification. Placed in gown. Bed in low ph position. Call light in reach. Side rails up X2. classroom teacher on. Pulse ox on. NIBP on. Door closed. Noise minimized. Warm blanket given. 11:43 Emil Mckeon PA is [facility]. jr8 11:43 Suraj Barkley MD is Attending Physician. jr8 11:47 Arm band placed on Patient placed in an exam room. ph 11:52 Basia Duffy, RN is Primary Nurse. ph 12:10 XRAY Chest (1 view) In Process Unspecified. EDMS 12:21 Accessed PICC line. Blood collected. using per hospital protocol. Clean \\T\\ dry. Dressing ph intact. Good blood return. Flushes easily. Flushed PICC line with 10 mL NS to purple and 10 mL NS to red. 13:58 Wound care: to skin tear right hand located on right hand was cleaned with jhonny Miller dressed with Neosporin, Kerlix, non stick dressing, Patient tolerated well. 14:12 Mino Hdez DO is Hospitalizing Provider. jr8 17:30 No provider procedures requiring assistance completed. Patient admitted, IV remains in ph place. Administered Medications: 12:32 Drug: Lasix 40 mg Route: IVP; Site: PICC; 16:08 Follow up: Response: No adverse reaction ph Outcome: 14:15 Decision to Hospitalize by Provider. jr8 17:40 Patient left the ED. ph 17:40 Admitted to Tele accompanied by tech, via wheelchair, room 209. ph 17:40 Condition: stable 17:40 Instructed on the need for admit. Signatures: Dispatcher [employer] EDMS Emil Mckeon PA PA jr8 Basia Duffy, RN RN Erin Nguyễn, RN RN Ignacio Diego RN RN ll1
[2019-09-21] MEDS ORDERED: ACETAMINOPHEN 500 MG TAB PO PRN (15:01)
[2019-09-21] MEDS ORDERED: ONDANSETRON 4 MG/2 ML VIAL IV PRN (15:01)
--- NOTE | 2019-09-21 15:16 | P.HP ---
Certification for Inpatient Patient admitted to: Observation With expected LOS: <2 Midnights Patient will require the following post-hospital care: None Practitioner: I am a practitioner with admitting privileges, knowledge of patient current condition, hospital course, and medical plan of care. Services: Services provided to patient in accordance with Admission requirements found in Title 42 Section 412.3 of the Code of Federal Regulations Patient History Date of Service: 09/21/19 Reason for admission: Congestive heart failure exacerbation History of Present Illness: 79-year-old female with past medical history of recent dx of end-stage renal disease now on dialysis MWF, CAD, chronic diastolic congestive heart failure, type 2 diabetes with diabetic foot ulcer currently taking IV vancomycin chief 48 hr after dialysis, CAD and essential hypertension presents to the emergency room complaining of dyspnea on exertion. Patient states that since starting dialysis she has progressively had more difficulty ambulating because she gets winded with minimal effort. States that she gets dyspnea on exertion with any little effort. Patient states she has gained 5 lb in last 4 days. States that she has not changed anything that she normally does. Patient is on IV vancomycin for osteomyelitis from a diabetic wound in the left foot. In the emergency room patient gets short of breath speaking. States she has gained 5 lb in 4 days and is having significant dyspnea on exertion. Blood work shows a slightly elevated troponin of 0.46, pro BNP of 31 K patient's baseline is usually under 10 K and chest x-ray shows moderate CHF versus volume overload pattern. On physical exam patient is alert and oriented x4. She is in no distress but has obvious dyspnea on exertion with just speaking. Her O2 saturations at room air are 95%. Patient appears slightly volume overloaded with some mild swelling in the lower extremities. She is currently taking vancomycin IV for osteomyelitis of the left foot. Patient will be placed in observation and further evaluated. Allergies iodine [Iodine] Allergy (Severe, Verified 11/20/18 20:58) throat swelling morphine Allergy (Severe, Verified 05/27/19 03:20) paralysis diphenhydramine HCl [From Benadryl] Allergy (Verified 11/20/18 20:58) Anaphylaxis Sulfa (Sulfonamide Antibiotics) Allergy (Verified 11/20/18 20:58) Nausea/Vomiting sulfamethoxazole [From Bactrim] Allergy (Verified 11/20/18 20:58) Nausea/Vomiting trimethoprim [From Bactrim] Allergy (Verified 11/20/18 20:58) Nausea/Vomiting levofloxacin [From Levaquin] Adverse Reaction (Severe, Verified 11/20/18 20:58) vomiting metoclopramide [From Reglan] Adverse Reaction (Verified 11/20/18 20:58) Nausea/Vomiting promethazine [From Phenergan] Adverse Reaction (Verified 11/20/18 20:58) Nausea/Vomiting Narcotics Allergy (Severe, Uncoded 05/27/19 03:20) Anaphylaxis Home medications list reviewed: Yes Home Medications: Atorvastatin Calcium [Lipitor] 80 mg PO BEDTIME 08/22/18 Bumetanide [Bumex*] 1 mg PO BID 08/22/18 Folic Acid 1 mg PO DAILY 08/22/18 Nitroglycerin [Nitrostat*] 0.4 mg SL SEECOM PRN 08/22/18 Linagliptin [Tradjenta] 5 mg PO DAILY 09/10/18 calcitrioL [Calcitriol] 1 cap PO DAILY 11/20/18 Aspirin Chewable [Aspirin Chewable*] 1 tab PO DAILY 05/27/19 Insulin Degludec [Tresiba Flextouch U-200] 12 units SQ DAILY 05/27/19 Metoprolol Tartrate [Lopressor*] 1 tab PO BID 05/27/19 Ashlee Probiotics 1 cap PO DAILY 05/27/19 Ranolazine [Ranexa] 500 mg PO BID #60 tab.er.12h 05/27/19 Ticagrelor [Brilinta*] 1 mg PO BID 08/21/19 - Past Medical/Surgical History Diabetic: Yes -: Diabetes mellitus type 2 -: Hypertension -: Chronic renal disease stage 4 -: Broken tani shoulders, toes tani feet, L elbow hx -: Cataract -: History DVT to the left lower extremity -: Hyperlipidemia -: CAD with multiple stents -: Peripheral vascular disease -: Carotid arterial disease -: History of osteomyelitis -: Severe cervical spine disease -: heart stents 8-9x; last one was Mar 2019 -: 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 She has 6 children - Family History Father -: GI disease, Cancer Notes: stomach Mother -: GI disease, Stroke, Other (see notes) Notes: brain tumor Brother -: Heart disease, Hypertension, Diabetes, Kidney disease Notes: stomach CA Sister -: Heart disease, Hypertension, GI disease - Social History Smoking Status: Never smoker Alcohol use: No CD- Drugs: No Caffeine use: Yes Place of Residence: Home Review of Systems General: As per HPI Eyes: Unremarkable ENT: Unremarkable Respiratory: SOB with Excertion Cardiovascular: Chest Pain Gastrointestinal: Unremarkable Genitourinary: Unremarkable Musculoskeletal: Unremarkable Integumentary: Unremarkable Neurological: Unremarkable Lymphatics: Unremarkable Physical Examination - Vital Signs Temperature: 99.2 F Blood Pressure: 118/76 Pulse: 80 Respirations: 17 Pulse Ox (%): 98 (RA) - Physical Exam General: Alert, In no apparent distress, Oriented x3 HEENT: Atraumatic, Normocephalic, PERRLA Neck: Supple, No Thyromegaly, Other (Trachea midline) Respiratory: Clear to auscultation bilaterally, Diminished (With exertion) Cardiovascular: No edema, Normal pulses, Regular rate/rhythm, Normal S1 S2 Capillary refill: <2 Seconds Gastrointestinal: Normal bowel sounds, Soft and benign, Non-distended Musculoskeletal: No clubbing, No swelling, No contractures, No erythema Integumentary: No breakdown, No significant lesion, No tenderness/swelling Neurological: Normal gait, Normal speech, Normal strength at 5/5 x4 extr, Normal tone - Studies Laboratory Data (last 24 hrs) 09/21/19 12:15: PT 13.2 H, INR 1.12 09/21/19 12:15: WBC 9.0, Hgb 11.0 L, Hct 32.7 L, Plt Count 163 09/21/19 12:15: Sodium 141, Potassium 4.3, BUN 28 H, Creatinine 2.81 H D, Glucose 294 H, Magnesium 1.9, Total Bilirubin 0.5, AST 18, ALT 18, Alkaline Phosphatase 88 Assessment and Plan - Plan Impression: Acute on chronic diastolic heart failure with exacerbation: End-stage renal disease on dialysis Monday: Type 2 diabetes mellitus: Essential hypertension: History of coronary artery disease: Plan: Acute on chronic diastolic heart failure with exacerbation: Recent cardiac catheterization showed severe coronary artery disease, patent left main circumflex stent, moderate disease in the distal OM-2. A completely occluded RCA with collaterals from the left system. Recommendation is for medical management. Echocardiogram done on 05/27/2019 shows a normal EF of 58% and normal wall motion. Patient recently started dialysis. Yesterday was her 2nd session. Since she started dialysis patient has had difficulty with dyspnea on exertion. States she has gained 5 lb in the last 4 days. Chest x-ray in the emergency room shows CHF versus volume overload pattern. Will consult Nephrology-. Patient would likely benefit from dialysis. She does produce some urine and is currently on p.o. Bumetadine 1 mg twice a day. Will wait on Nephrology consult recommendations. Will place patient on continuous telemetry. End-stage renal disease on dialysis Monday: Patient recently start dialysis. Yesterday was her 2nd session. She goes Monday and Monday. Type 2 diabetes mellitus: Will resume all medications once verified. In the meantime will place on sliding scale insulin with Accu-Cheks a.c. HS. ADA diet. Essential hypertension: Will resume home medication. Will monitor blood pressure History of coronary artery disease: Patient had recent cardiac catheterization on 07/31/2019 with results as above. Will continue home medications once verified. Will place on telemetry. Will trend troponins. Slight elevation in troponin is likely related to demand ischemia from recent dialysis sessions. Discharge Plan: Home Plan to discharge in: 48 Hours - Advance Directives Does patient have a Living Will: Yes Does patient have a Durable POA for Healthcare: Yes - Code Status/Comfort Care Code Status Assessed: Yes Time Spent Managing Pts Care (In Minutes): 55
[2019-09-21] MEDS: INSULIN -REGULAR HUMAN 50 UNIT/0.5 ML ML SQ SCH ×2 (18:03→21:17)
[2019-09-21 20:52] LABS: Urine Appearance CLEAR; Urine Bilirubin NEGATIVE (NEG); Urine Blood TRACE (NEG); Urine Color YELLOW; Urine Glucose 2+ (NEG); Urine Protein 1+ (NEG); Urine Urobilinogen 0.2 mg/dL (0.2-1.0)
[2019-09-21] MEDS ORDERED: ATORVASTATIN 80 MG TAB PO SCH (21:00)
[2019-09-21] MEDS ORDERED: BUMETANIDE 1 MG TABLET PO SCH (21:00)
[2019-09-21] MEDS ORDERED: HOME MED 1 EA UNK (Ranolazine [Ranexa] 500 MG) PO SCH (21:00)
[2019-09-21 21:07] LABS: Urine Microscopic Reflex ORDER UMIC
[2019-09-21] MEDS: BUMETANIDE 1 MG TABLET PO SCH (21:16)
[2019-09-21] MEDS: TICAGRELOR 90 MG TABLET PO SCH (21:16)
[2019-09-21] MEDS: METOPROLOL TAR 50 MG TAB PO SCH (21:17)
[2019-09-21] MEDS ORDERED: METOLAZONE 2.5 MG TABLET PO STA (21:41)
[2019-09-21 21:45] LABS: Urine Bacteria <20 /HPF (<20); Urine RBC <5 /HPF (NONE SEEN)
[2019-09-21 21:46] LABS: Urine Culture Reflex Order REFLEXED
[2019-09-21] MEDS ORDERED: METOLAZONE 5 MG TABLET ONE (22:05)
[2019-09-22 06:18] VITALS: BMI 29.7
[2019-09-22 06:53] LABS: Absolute Lymphocytes (CBC) 0.9 K/uL (0.7-4.9); Basophils % 0.5 % (0-1.3); Hematocrit 32.5 % (36.0-45.0); Lymphocytes % 10.9 % (15.3-44.8); MPV 8.9 fL (7.6-11.3)
[2019-09-22 07:14] LABS: Magnesium 2.1 mg/dL (1.8-2.4); Phosphorus 2.2 mg/dL (2.5-4.9); Potassium 3.5 mmol/L (3.5-5.1); Troponin I 0.37 ng/mL (0.0-0.045)
[2019-09-22] MEDS: TICAGRELOR 90 MG TABLET PO SCH (08:56)
[2019-09-22] MEDS: METOPROLOL TAR 50 MG TAB PO SCH (08:57)
[2019-09-22] MEDS: BUMETANIDE 1 MG TABLET PO SCH (08:57)
[2019-09-22] MEDS: INSULIN -REGULAR HUMAN 50 UNIT/0.5 ML ML SQ SCH ×2 (08:57→11:48)
[2019-09-22] MEDS ORDERED: ASPIRIN 81 MG CHEWABLE TABLET PO SCH (09:00)
[2019-09-22] MEDS ORDERED: ENOXAPARIN 30 MG/0.3 ML SQ SCH (09:00)
[2019-09-22] MEDS ORDERED: ENOXAPARIN 40 MG/0.4 ML SQ SCH (09:00)
[2019-09-22] MEDS ORDERED: POTASSIUM 25 MEQ EFFERV TAB PO ONE (09:00)
[2019-09-22] MEDS: POTASS/SODIUM PHOSPHATE 1 PKT POWD.PACK PO SCH ×3 (09:20→11:47)
--- NOTE | 2019-09-22 11:23 | P.DS ---
Admission Date: 09/21/19 Discharge Date: 09/22/19 Reason for Admission: Congestive heart failure exacerbation Procedures: Dialysis x2 Brief History of Present Illness: 79-year-old female with past medical history of recent dx of end-stage renal disease now on dialysis MWF, CAD, chronic diastolic congestive heart failure, type 2 diabetes with diabetic foot ulcer currently taking IV vancomycin chief 48 hr after dialysis, CAD and essential hypertension presents to the emergency room complaining of dyspnea on exertion. Patient states that since starting dialysis she has progressively had more difficulty ambulating because she gets winded with minimal effort. States that she gets dyspnea on exertion with any little effort. Patient states she has gained 5 lb in last 4 days. States that she has not changed anything that she normally does. Patient is on IV vancomycin for osteomyelitis from a diabetic wound in the left foot. In the emergency room patient gets short of breath speaking. States she has gained 5 lb in 4 days and is having significant dyspnea on exertion. Blood work shows a slightly elevated troponin of 0.46, pro BNP of 31 K patient's baseline is usually under 10 K and chest x-ray shows moderate CHF versus volume overload pattern. On physical exam patient is alert and oriented x4. She is in no distress but has obvious dyspnea on exertion with just speaking. Her O2 saturations at room air are 95%. Patient appears slightly volume overloaded with some mild swelling in the lower extremities. She is currently taking vancomycin IV for osteomyelitis of the left foot. Patient will be placed in observation and further evaluated. Hospital Course: During this hospital course patient was admitted for CHF exacerbation with noted volume overload. Patient recently had started dialysis and on admission had only been dialyzed for a 2nd time. She was complaining of chest pain and dyspnea on exertion. Nephrology was consulted and patient was dialyzed yesterday. The patient had almost 2 L of fluid removed. This morning patient is alert and oriented x4. States she feels much better and her dyspnea on exertion and chest pain have resolved. Patient's Bumex was also increased to 2 mg b.i.d.. Plan is for patient to be dialyzed today prior to discharge. Nephrology will adjust medications and follow patient at the dialysis center. Patient is also getting her last 2 doses of vancomycin after dialysis. At this time we can remove the PICC line. Nephrology was agreeable. <Gualberto Bonilla - Last Filed: 09/22/19 13:56> Admission Date: 09/21/19 Discharge Date: 09/22/19 Hospital Course: Patient seen and examined. Agree with plan of care of PA. Case also discussed with Nephrology-Dr. Sidhu. Patient will be discharged with Bumex and follow up with Nephrology closely in dialysis. <ShakaMino cooney - Last Filed: 09/22/19 18:30> Disposition: ROUTINE DISCHARGE Discharge Condition: GOOD Vital Signs/Physical Exam: Temp Pulse Resp BP Pulse Ox 98.0 F 86 18 125/60 94 09/22/19 08:00 09/22/19 08:57 09/22/19 08:00 09/22/19 08:57 09/22/19 08:00 General: Alert, In no apparent distress, Oriented x3 HEENT: Atraumatic, Normocephalic, PERRLA, Mucous membr. moist/pink Neck: Supple, No Thyromegaly Respiratory: Clear to auscultation bilaterally, Normal air movement Cardiovascular: No edema, Normal pulses, Regular rate/rhythm, Normal S1 S2 Capillary refill: <2 Seconds Gastrointestinal: Normal bowel sounds, Soft and benign, Non-distended Musculoskeletal: No swelling, No contractures, No erythema, No tenderness Integumentary: No significant lesion, No tenderness/swelling, No erythema Neurological: Normal gait, Normal speech, Normal strength at 5/5 x4 extr, Normal tone Laboratory Data at Discharge: WBC 8.0 K/uL (4.3-10.9) 09/22/19 05:45 Hgb 10.9 g/dL (12.0-15.0) L 09/22/19 05:45 Hct 32.5 % (36.0-45.0) L 09/22/19 05:45 Plt Count 170 K/uL (152-406) 09/22/19 05:45 PT 13.2 SECONDS (9.5-12.5) H 09/21/19 12:15 INR 1.12 09/21/19 12:15 Sodium 139 mmol/L (136-145) 09/22/19 05:45 Potassium 3.5 mmol/L (3.5-5.1) 09/22/19 05:45 BUN 20 mg/dL (7-18) H 09/22/19 05:45 Creatinine 2.24 mg/dL (0.55-1.3) H 09/22/19 05:45 Glucose 181 mg/dL (74-106) H 09/22/19 05:45 Phosphorus 2.2 mg/dL (2.5-4.9) L 09/22/19 05:45 Magnesium 2.1 mg/dL (1.8-2.4) 09/22/19 05:45 Total Bilirubin 0.5 mg/dL (0.2-1.0) 09/21/19 12:15 AST 18 U/L (15-37) 09/21/19 12:15 ALT 18 U/L (12-78) 09/21/19 12:15 Alkaline Phosphatase 88 U/L (45-117) 09/21/19 12:15 Troponin I 0.37 ng/mL (0.0-0.045) H 09/22/19 05:45 <Gualberto Bonilla - Last Filed: 09/22/19 13:56> Vital Signs/Physical Exam: Temp Pulse Resp BP Pulse Ox 96.8 F 84 18 120/56 L 95 09/22/19 16:00 09/22/19 16:00 09/22/19 16:00 09/22/19 16:00 09/22/19 16:00 Laboratory Data at Discharge: WBC 8.0 K/uL (4.3-10.9) 09/22/19 05:45 Hgb 10.9 g/dL (12.0-15.0) L 09/22/19 05:45 Hct 32.5 % (36.0-45.0) L 09/22/19 05:45 Plt Count 170 K/uL (152-406) 09/22/19 05:45 PT 13.2 SECONDS (9.5-12.5) H 09/21/19 12:15 INR 1.12 09/21/19 12:15 Sodium 139 mmol/L (136-145) 09/22/19 05:45 Potassium 3.5 mmol/L (3.5-5.1) 09/22/19 05:45 BUN 20 mg/dL (7-18) H 09/22/19 05:45 Creatinine 2.24 mg/dL (0.55-1.3) H 09/22/19 05:45 Glucose 181 mg/dL (74-106) H 09/22/19 05:45 Phosphorus 2.2 mg/dL (2.5-4.9) L 09/22/19 05:45 Magnesium 2.1 mg/dL (1.8-2.4) 09/22/19 05:45 Total Bilirubin 0.5 mg/dL (0.2-1.0) 09/21/19 12:15 AST 18 U/L (15-37) 09/21/19 12:15 ALT 18 U/L (12-78) 09/21/19 12:15 Alkaline Phosphatase 88 U/L (45-117) 09/21/19 12:15 Troponin I 0.37 ng/mL (0.0-0.045) H 09/22/19 05:45 <Mino Hdez - Last Filed: 09/22/19 18:30> Patient Discharge Instructions: Patient instructed to continue Bumex at 1 mg b.i.d. Nephrology will decide whether to had metolazone to patient's medication regimen. Diet: ADA Activity: Ad karolyn Time spent managing pt's care (in minutes): 55 <Gualberto Bonilla - Last Filed: 09/22/19 13:56> <Mino Hdez - Last Filed: 09/22/19 18:30> Home Medications: Atorvastatin Calcium [Lipitor] 80 mg PO BEDTIME 08/22/18 Bumetanide [Bumex*] 1 mg PO TID 08/22/18 Folic Acid 1 mg PO DAILY 08/22/18 Nitroglycerin [Nitrostat*] 0.4 mg SEECOM PRN 08/22/18 Linagliptin [Tradjenta] 5 mg PO DAILY 09/10/18 calcitrioL [Calcitriol] 1 cap PO DAILY 11/20/18 Insulin Degludec [Tresiba Flextouch U-200] 12 units SQ DAILY 05/27/19 Metoprolol Tartrate [Lopressor*] 100 mg PO BID 05/27/19 Ticagrelor [Brilinta*] 1 tab PO BID 08/21/19 Ranolazine [Ranexa] 500 mg PO BID 09/21/19 Aspirin Chewable [Aspirin Chewable*] 81 mg PO DAILY tab.chew 09/22/19 Followup: Hakan King DO [ACTIVE - CAN ADMIT] - ()
[2019-09-22] MEDS: ALBUMIN HUMAN 25% 50 ML IV SCH ×2 (13:14→13:31)
[2019-09-22 16:57] VITALS: BP 120/56; TEMP 96.8
[2019-09-22 17:05] VITALS: O2SAT 95
--- NOTE | 2019-09-22 19:33 | CON ---
Date of Consultation: 09/22/2019 Requesting Provider: Mino Hdez D.O. Reason For Consultation: End-stage renal disease. History Of Present Illness: Ms. Gonzalez is a 79-year-old female with history of end-stage renal dis ease, who presented to hospital with acute CHF exacerbation. The patient began feeling symptoms over the past several days and was then presented to the emergency room. 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 Follows up with Dr. King in that regard. The patient does have diastolic congestive heart failure, but they reports in the past with the patient became nauseous. She would have episodes of what sounds to be bradycardia versus some pauses and led to some symptoms last year when she was hosp italized in [place] with syncopal attacks and so given that history, her initial dialysis treatments had minimal ultrafiltration to avoid provoking an acute event. Since admission here, the patient has been short of breath. The patient did not respond well to diur etics and required acute hemodialysis last night with 2 L removed. She is currently seen in the dial ysis room, receiving another 2 L ultrafiltration. She did have hypotension, which required albumin a nd the ultrafiltration goal was decreased to 1 L. She remained broadly asymptomatic during that time . She currently feels well. Denies any fevers, chills, chest pain, shortness of breath, nausea, vomiti ng, or diarrhea. Past Medical History: As per HPI. Family History: No history of dialysis in the family. Physical Examination: General: No acute distress. Heart: Regular rate, rhythm. No murmurs or gallops. Lungs: Clear to auscultation. Abdomen: Soft, nontender, nondistended Extremities: No significant edema. The patient does have a PICC line in place. Laboratory Data: Hemoglobin 10.9, hematocrit 32.5. Serum chemistry; sodium 139, potassium 3.5, chlo ride 106, CO2 28, BUN 20, creatinine 2.24, phosphorus 2.2, magnesium 2.1. UA from admission was revi ewed, 5-10 WBCs, less than 20 bacteria. Urine culture is pending. Current Medications: The patient is receivin.Lipitor. 2.Bumex 2 mg p.o. b.i.d. 3.Metolazone 2.5 mg given yesterday. 4.The patient has received doses of phosphorus replacement today. 5.She is also on Ranexa, Brilinta. Impression: 1.End-stage renal disease on hemodialysis. 2.Acute diastolic congestive heart failure. 3.Acute hypoxemic respiratory failure. 4.History of hypertension. 5.History of diabetes. 6.History of coronary artery disease. Plan: 1.Ms. Gonzalez is tolerating treatment well after decreased ultrafiltration rate. The patient will continue on her exercise. She will resume on her home dose of diuretics, Bumex 1 mg p.o. t.i.d. Her weight will be measured today standing after dialysis so that we can establish a dry weight for the patient. The patient will continue on a renal diet in the outpatient setting. Continue current card iac medications. The patient has been advised to weigh herself daily and ensure that she does not co nsume more than 2 L of fluid before the dialysis treatments. 2.PICC line will be removed and IV antibiotics will be resumed at the dialysis facility. /LIO Voice ID: [id number] Report ID: [id number]
== END 2019-09-22 16:43 | disposition home or self-care (01) ==
LOC: ER 11:17 → ERHOLD 14:59 → 2ND 17:09
PROVIDERS: ADMIT Family Medicine; ATTEND Family Medicine
DX: I13.2 Hypertensive heart and chronic kidney disease with heart failure and with stage 5 chronic kidney disease, or end stage renal disease (principal); I50.33 Acute on chronic diastolic (congestive) heart failure; N18.6 End stage renal disease; J96.01 Acute respiratory failure with hypoxia; E11.22 Type 2 diabetes mellitus with diabetic chronic kidney disease; E11.621 Type 2 diabetes mellitus with foot ulcer; E11.69 Type 2 diabetes mellitus with other specified complication; M86.8X7 Other osteomyelitis, ankle and foot; I25.10 Atherosclerotic heart disease of native coronary artery without angina pectoris; I25.82 Chronic total occlusion of coronary artery; I65.29 Occlusion and stenosis of unspecified carotid artery; I73.9 Peripheral vascular disease, unspecified; E78.5 Hyperlipidemia, unspecified; Z11.59 Encounter for screening for other viral diseases; Z99.2 Dependence on renal dialysis; Z79.82 Long term (current) use of aspirin; Z79.4 Long term (current) use of insulin; Z79.899 Other long term (current) drug therapy; Z88.2 Allergy status to sulfonamides; Z88.3 Allergy status to other anti-infective agents; Z88.5 Allergy status to narcotic agent; Z88.6 Allergy status to analgesic agent; Z88.8 Allergy status to other drugs, medicaments and biological substances; Z86.718 Personal history of other venous thrombosis and embolism; Z95.5 Presence of coronary angioplasty implant and graft; Z80.0 Family history of malignant neoplasm of digestive organs; Z82.3 Family history of stroke; Z83.3 Family history of diabetes mellitus; Z82.49 Family history of ischemic heart disease and other diseases of the circulatory system; Z84.1 Family history of disorders of kidney and ureter
CPT/HCPCS: 93005; 87088; 85025 ×2; 87086; 80048 ×2; 36415 ×2; 83735 ×2; 84100; 85610; 82947 ×6; 80076; 84484 ×2; 83880; 71045; 90935 ×2; 96374; 99285; U0002; J1940; J1644 ×2; P9047; G0378 ×3; 81003; 81015; J1650

== ENCOUNTER 2019-10-09 14:45 | Emergency (ER) | payer OTHER ==
--- OUTSIDE RECORDS SUMMARY | 2019-10-09 14:49 | XMS REPORT | Clinical Summary ---
:1940 Author Organization [facility] Address [address] [place] [address] Care Team Providers Name Role Phone Marcos Perry Primary Care Provider Unavailable Spenser Salvador Unavailable Sanaz King [place] Allergies Active Allergy Reactions Severity Noted Date [...] of spine 01/30/2019 Coronary artery disease involving match-e-be-nash-she-wish band coronary simran ry of match-e-be[place]nash[place]she[place]ish band heart 01/30/2019 H/O stroke without residual deficits [...] Zamora MD 03/21/2019 Surgery Gastroenterology Nely [facility] COPY MD Daniel 03/20/2019 Orders Only General Internal Medicine 03/20/2019 Travel 03/19/2019 Hospital Encounter Cardiology Fredrick Silva Atrial fl utter, - MD Latrell paroxysmal ([facility]) 03/23/2019 [place] Bojorquez (Primary Dx) Jamaica Singh MD 01/29/2019 Orders Only General Internal Medicine 01/26/2019 Orders Only General Internal Medicine 01/26/2019 Travel 01/25/2019 Hospital Encounter Cardiology Bandeli, Unstable angina ([facility]) (Primary Dx); - Juanito NSTEMI (non-ST elevated myocardial infarction) ([facility]) 01/30/2019 MD Andrea Lawrence Chau Le, MD 01/04/2019 Documentation Smitha Mcpherson RN 12/24/2018 Surgery Spencer Todd & FADI Choe MD 12/20/2018 Hospital Encounter Cardiology Lorraine, NSTEMI (n on-ST elevated myocardial infarction) ([facility]) (Primary Dx); - Papito Braswell, Unstable angina ([facility]) 12/25/2018 Puneet García MD 12/20/2018 Travel 11/12/2018 Spencer Vazquez & FADI Choe MD 11/11/2018 Orders Only General Internal Medicine 11/10/2018 Hospital Encounter Cardiology Spencer Todd NSTEMI s/ p Impella PCI by Dr. 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) 11/10/2018 Travel after 10/08/2018 Social History Tobacco Use Types Packs/Day Years [...] Not on file Implants Implanted Type Area Race Steward Device Shelf Model / Identifier Expiration Serial / Date Lot Stent Bettie Caballero 2.34i95ox [id number] - [id number] IMPLANTS N/A: BOSTON [id number] 04/04/2020 [id number] / Implanted: Qty: 1 on 08/01/2018 by Spencer Todd MD Alvarez ry SCI:INTERV / CARDIOLOGY [id number] Stent Synergy Mr 2.46l26zn [id number] - [id number] IMPLANTS N/A: BOSTON [id number] 04/04/2020 [id number] / Implanted: Qty: 1 on 08/01/2018 by Spencer Todd MD [place] ry SCI:INTERV / CARDIOLOGY [id number] Stent Synergy Mr 2.66e49yp [id number] - [id number] IMPLANTS N/A: BOSTON [id number] 04/01/2020 [id number] / Implanted: Qty: 1 on 08/01/2018 by Spencer Todd MD Corona ry SCI:INTERV / CARDIOLOGY [id number] Stent Synergy Otw 3.71g61lo [id number] - [id number] IMPLANTS Left: BOSTON [id number] 05/16/2020 [id number] / Implanted: Qty: 1 on 08/07/2018 by Spencer Todd MD [place]ona ry SCI:INTERV / CARDIOLOGY [id number] Stent Synergy Otw 2.29u14nz [id number] - [id number] IMPLAN TS Right: BOSTON [id number] 04/30/2020 [id number] / Implanted: Qty: 1 on 08/07/2018 by Spencer Todd MD Corona ry SCI:INTERV / CARDIOLOGY [id number] Stent Synergy Otw 2.83h06ur [id number] - [id number] IMPLAN TS Right: BOSTON [id number] 05/21/2020 [id number] / Implanted: Qty: 1 on 08/07/2018 by Spencer Todd MD Corona ry SCI:INTERV / CARDIOLOGY [id number] Stent Synergy Mr 3.62k32yf [id number] - [id number] IMPLANTS Right: BOSTON [id number] 04/10/2020 [id number] / Implanted: Qty: 1 on 08/07/2018 by Spencer Todd MD Corona ry SCI:INTERV / CARDIOLOGY [id number] Stent Synergy Otw 3.27x45gl [id number] - [id number] IMPLAN TS Right: BOSTON [id number] 04/15/2020 [id number] / Implanted: Qty: 1 on 08/07/2018 by Spencer Todd MD Corona ry SCI:INTERV / CARDIOLOGY [id number] Stent Synergy Otw 3.34y19ku [id number] - [id number] IMPLANTS BOSTON [id number] 08/07/2020 [id number] / Implanted: Qty: 1 on 11/12/2018 by Spencer Todd MD SCI:INTERV / CARDIOLOGY [id number] Stent Synergy Mr 3.91v76ze [id number] - [id number] IMPLANTS Right: BOSTON [id number] 09/25/2020 [id number] / Implanted: Qty: 1 on 03/22/2019 by Spencer Todd MD Corona ry SCI:INTERV / CARDIOLOGY [id number] Procedures Procedure Name Priority Date/Time Associated Comments [...] section. VASCULAR DIAGRAM -SCAN 03/27/2019 2:02 PM [employer]PER RHYTHM STRIP - SCAN 03/26/2019 2:31 PM [employer] VASCULAR DIAGRAM -SCAN 03/26/2019 8:41 AM [employer]PER REPORT OF PROCEDURE - 03/26/2019 8:41 ENDOSCOPY SCAN AM [employer] CARDIAC CATH REPORT - 03/26/2019 8:41 SCAN AM [employer] CARDIAC CATH REPORT - 03/26/2019 8:41 SCAN AM [employer]PER RHYTHM STRIP - SCAN 03/26/2019 8:41 AM [employer]PER PERIPHERAL VASCULAR 03/23/2019 9:20 REPORT - SCAN PM [employer] POCT-GLUCOSE METER Routine 03/23/2019 11:39 Resul ts for this AM [employer] procedure are i n the results section. POCT-GLUCOSE METER Routine 03/23/2019 8:22 Resul ts for this AM [employer] procedure are i n the results section. COMPREHENSIVE Routine 03/23/2019 5:27 Results fo r this METABOLIC PANEL AM [employer] procedure ar e in the results section. CBC W/PLT COUNT & AUTO Routine 03/23/2019 3:36 R esults for this DIFFERENTIAL AM [employer] procedure are i n the results section. CBC W/PLT COUNT & AUTO Routine 03/23/2019 3:36 R esults for this DIFFERENTIAL AM [employer] procedure are i n the results section. POCT-GLUCOSE METER Routine 03/22/2019 9:57 Resul ts for this PM [employer] procedure are i n the results section. ECHOCARDIOGRAM REPORT 03/22/2019 9:20 - SCAN PM [employer] CAROTID DOPPLER Routine 03/22/2019 7:42 Results for this BILATERAL PM [employer] procedure are i n the results section. POCT-GLUCOSE METER Routine 03/22/2019 5:18 Resul ts for this PM [employer] procedure are i n the results section. CBC (HEMOGRAM ONLY) Routine 03/22/2019 3:55 Resu lts for this PM [employer] procedure are i n the results section. BASIC METABOLIC PANEL Routine 03/22/2019 3:55 Re sults for this (7) PM [employer] procedure are i n the results section. POCT-GLUCOSE METER Routine 03/22/2019 3:00 Resul ts for this PM [employer] procedure are i n the results section. 2D ECHO W/ DOPPLER Routine 03/22/2019 2:04 Resul ts for this (CW/PW/COLOR) PM [employer] procedure are in the results section. POCT-ACT Routine 03/22/2019 10:59 Results for this AM [employer] procedure are i n the results section. POCT-ACT Routine 03/22/2019 10:32 Results for this AM [employer] procedure are i n the results section. L CATH & PCI 03/22/2019 10:18 Coronary artery AM [employer] disease with angina pectoris, unspecified vessel or lesion type, unspecified whether match-[place]-be[place]she[place]ish band or transplanted heart (HCC) Case Notes 1430 POCT-GLUCOSE METER Routine 03/22/2019 7:33 AM [employer]PER Results for this procedure are i n the results section . CBC W/PLT COUNT & AUTO Routine 03/22/2019 2:06 AM [employer] Results for this DIFFERENTIAL procedure are i n the results section . LIPID PANEL Routine 03/22/2019 2:06 AM [employer]PER Resu lts for this procedure are i n the results section . PHOSPHORUS Routine 03/22/2019 2:06 AM [employer] HELPER Resu lts for this procedure are i n the results section . MAGNESIUM Routine 03/22/2019 2:06 AM [employer] HELPER Resu lts for this procedure are i n the results section . CALCIUM, IONIZED Routine 03/22/2019 2:06 AM [employer] HELPER Results for this procedure are i n the results section . CBC W/PLT COUNT & AUTO Routine 03/22/2019 2:06 AM [employer] HELPER Results for this DIFFERENTIAL procedure are i n the results section . B-TYPE NATRIURETIC FACTOR Routine 03/22/2019 2:06 AM [employer]PER Results for this (BNP) procedure are i n the results section . BASIC METABOLIC PANEL (7) Routine 03/22/2019 2:06 AM [employer] Results for this procedure are i n the results section . APTT Routine 03/22/2019 2:06 AM [employer] HELPER Resu lts for this procedure are i n the results section . US ABDOMEN COMPLETE Routine 03/22/2019 12:10 AM [employer]PER Results for this procedure are i n the results section . POCT-GLUCOSE METER Routine 03/21/2019 9:24 PM [employer]PER Results for this procedure are i n the results section . APTT Routine 03/21/2019 6:57 PM [employer] HELPER Resu lts for this procedure are i n the results section . POCT-GLUCOSE METER Routine 03/21/2019 5:26 PM [employer] Results for this procedure are i n the results section . ECG 12-LEAD Routine 03/21/2019 5:24 PM [employer] HELPER Resu lts for this procedure are i n the results section . 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 TROPONIN I Routine 03/21/2019 3:07 PM Results for this [employer] procedure are i n the results section. XR SHOULDER LEFT RHETT 03/21/2019 2:25 PM Resu lts for this COMPLETE MIN 2 VIEWS [employer] procedu re are in the results section. POCT-GLUCOSE METER Routine 03/21/2019 12:58 PM Re sults for this [employer] procedure are i n the results section. REPORT OF PROCEDURE - 03/21/2019 12:27 PM ENDOSCOPY URL [employer] [employer] UPPER ENDOSCOPY 03/21/2019 12:00 PM Atypical chest [employer] pain APTT Routine 03/21/2019 10:36 AM Results for this [employer] procedure are i n the results section. POCT-GLUCOSE METER Routine 03/21/2019 7:39 AM Re sults for this [employer] procedure are i n the results section. APTT Routine 03/21/2019 3:19 AM Results for this [employer] procedure are i n the results section. BASIC METABOLIC PANEL Routine 03/21/2019 2:23 AM Results for this (7) [employer] procedure are i n the results section. CBC (HEMOGRAM ONLY) Routine 03/21/2019 2:22 AM R esults for this [employer] procedure are i n the results section. POCT-GLUCOSE METER Routine 03/20/2019 9:46 PM Re sults for this [employer] procedure are i n the results section. APTT Routine 03/20/2019 7:09 PM Results for this [employer] procedure are i n the results section. POCT-GLUCOSE METER Routine 03/20/2019 6:20 PM Re sults for this [employer] procedure are i n the results section. URINALYSIS W/ Routine 03/20/2019 5:57 PM Results for this MICROSCOPIC [employer] procedure are i n the results section. CREATININE, RANDOM Routine 03/20/2019 5:57 PM Re sults for this URINE [employer] procedure are i n the results section. PROTEIN, RANDOM URINE Routine 03/20/2019 5:57 PM Results for this [employer] procedure are i n the results section. XR CHEST 1 VIEW Routine 03/20/2019 3:12 PM Resul ts for this PORTABLE/BEDSIDE [employer] procedure a re in the results section. TROPONIN I Routine 03/20/2019 12:19 PM Results for this [employer] procedure are i n the results section. APTT Routine 03/20/2019 12:19 PM Results for this [employer] procedure are i n the results section. POCT-GLUCOSE METER Routine 03/20/2019 11:45 AM Re sults for this [employer] procedure are i n the results section. POCT-GLUCOSE METER Routine 03/20/2019 7:37 AM Re sults for this [employer] procedure are i n the results section. TROPONIN I Routine 03/20/2019 5:54 AM Results for this [employer] procedure are i n the results section. CBC W/PLT COUNT & AUTO Routine 03/20/2019 12:43 AM Results for this DIFFERENTIAL [employer] procedure are i n the results section. APTT Routine 03/20/2019 12:43 AM Results for this [employer] procedure are i n the results section. TROPONIN I Routine 03/20/2019 12:43 AM Results for this [employer] procedure are i n the results section. HEMOGLOBIN A1C Routine 03/20/2019 12:43 AM Result s for this [employer] procedure are i n the results section. MAGNESIUM Routine 03/20/2019 12:43 AM Results for this [employer] procedure are i n the results section. BASIC METABOLIC PANEL Routine 03/20/2019 12:43 AM Results for this (7) [employer] procedure are i n the results section. CBC W/PLT COUNT & AUTO Routine 03/20/2019 12:43 AM Results for this DIFFERENTIAL [employer] procedure are i n the results section. 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 RHYTHM STRIP - SCAN 02/06/2019 11:22 AM [employer] HELPER REPORT OF PROCEDURE - 02/01/2019 9:00 AM [employer] [employer] ENDOSCOPY SCAN RHYTHM STRIP - SCAN 02/01/2019 9:00 AM [employer] HELPER POCT-GLUCOSE METER Routine 01/30/2019 9:05 AM [employer]PER Results for this procedure are i n the results section . ECG 12-LEAD Routine 01/30/2019 6:27 AM [employer]PER Resu lts for this procedure are i n the results section . CBC W/PLT COUNT & AUTO Routine 01/30/2019 5:56 AM [employer] [employer] Results for this DIFFERENTIAL procedure are i n the results section . URIC ACID Routine 01/30/2019 5:56 AM [employer] Resu lts for this procedure are i n the results section . PHOSPHORUS Routine 01/30/2019 5:56 AM [employer] HELPER Resu lts for this procedure are i n the results section . MAGNESIUM Routine 01/30/2019 5:56 AM [employer] HELPER Resu lts for this procedure are i n the results section . CBC W/PLT COUNT & AUTO Routine 01/30/2019 5:56 AM [employer] HELPER Results for this DIFFERENTIAL procedure are i n the results section . CALCIUM, IONIZED Routine 01/30/2019 5:56 AM [employer] HEL[employer] Results for this procedure are i n the results section . B-TYPE NATRIURETIC FACTOR Routine 01/30/2019 5:56 AM [employer] HELPER Results for this (BNP) procedure are i n the results section . BASIC METABOLIC PANEL (7) Routine 01/30/2019 5:56 AM [employer]PER Results for this procedure are i n the results section . POCT-GLUCOSE METER Routine 01/29/2019 9:09 PM [employer] HELPER Results for this procedure are i n the results section . POCT-GLUCOSE METER Routine 01/29/2019 5:02 PM [employer]PER Results for this procedure are i n the results section . PROTEIN, RANDOM URINE Routine 01/29/2019 2:24 PM [employer]PER Results for this procedure are i n the results section . URINALYSIS W/ MICROSCOPIC Routine 01/29/2019 2:24 PM [employer]PER Results for this procedure are i n the results section . CREATININE, RANDOM URINE Routine 01/29/2019 2:24 PM [employer] Results for this procedure are i n the results section . SODIUM, RANDOM URINE Routine 01/29/2019 2:24 PM [employer] Results for this procedure are i n the results section . PHOSPHORUS RHETT 01/29/2019 1:24 PM [employer] Resu lts for this procedure are i n the results section . MAGNESIUM RHETT 01/29/2019 1:24 PM [employer] Resu lts for this procedure are i n the results section . BASIC METABOLIC PANEL (7) RHETT 01/29/2019 1:24 PM [employer] Results for this procedure are i n the results section . XR CHEST 1 VIEW Routine 01/29/2019 1:14 PM [employer] R esults for this PORTABLE/BEDSIDE procedure a re in the results section . POCT-GLUCOSE METER Routine 01/29/2019 11:38 AM [employer] [employer] Results for this procedure are i n the results section . POCT-GLUCOSE METER Routine 01/29/2019 7:45 AM [employer] [employer] Results for this procedure are i n the results section . ECG 12-LEAD Routine 01/29/2019 6:42 AM [employer] [employer] Procedure Note - Interface, External Ris In - 01/29/2019 6:53 AM [employer] [employer] Ventricular Rate 66 BPM Atrial Rate 66 BPM P-R Interval 190 ms QRS Duration 100 ms Q-T Interval 460 ms QTC Calculation(Bazett) 482 ms P [place] 60 degrees R [place] 26 degrees T [place] 128 degrees Normal sinus rhythm Nonspecific T wave abnormali ty Prolonged QT Abnormal ECG When compared with ECG of 22:51, No significant change was fo und ECG 12-LEAD Routine 01/29/2019 6:42 AM Results for this [employer] procedure are i n the results section. CBC (HEMOGRAM ONLY) Routine 01/29/2019 5:04 AM R esults for this [employer] procedure are i n the results section. POCT-GLUCOSE METER Routine 01/28/2019 9:56 PM Re sults for this [employer] procedure are i n the results section. ECHOCARDIOGRAM REPORT - 01/28/2019 9:21 PM SCAN [employer] C. DIFFICILE GDH TOXIN Routine 01/28/2019 6:41 PM Results for this [employer] procedure are i n the results section. OCCULT BLOOD, STOOL Routine 01/28/2019 6:40 PM R esults for this [employer] procedure are i n the results section. POCT-GLUCOSE METER Routine 01/28/2019 11:46 AM Re sults for this [employer] procedure are i n the results section. 2D ECHO W/ DOPPLER Routine 01/28/2019 11:25 AM Re sults for this (CW/PW/COLOR) [employer] procedure are in the results section. APTT Routine 01/28/2019 8:48 AM Results for this [employer] procedure are i n the results section. POCT-GLUCOSE METER Routine 01/28/2019 8:28 AM Re sults for this [employer] procedure are i n the results section. APTT Routine 01/28/2019 4:28 AM Results for this [employer] procedure are i n the results section. BASIC METABOLIC PANEL Routine 01/28/2019 4:28 AM Results for this (7) [employer] procedure are i n the results section. CBC (HEMOGRAM ONLY) Routine 01/28/2019 4:28 AM R esults for this [employer] procedure are i n the results section. POCT-GLUCOSE METER Routine 01/27/2019 10:00 PM Re sults for this [employer] procedure are i n the results section. APTT Routine 01/27/2019 9:12 PM Results for this [employer] procedure are i n the results section. POCT-GLUCOSE METER Routine 01/27/2019 5:39 PM Re sults for this [employer] procedure are i n the results section. PT/APTT Routine 01/27/2019 4:27 PM Results for this [employer] procedure are i n the results section. PT/APTT Routine 01/27/2019 12:58 PM Results for this [employer] procedure are i n the results section. POCT-GLUCOSE METER Routine 01/27/2019 12:35 PM Re sults for this [employer] procedure are i n the results section. POCT-GLUCOSE METER Routine 01/27/2019 9:31 AM Re sults for this [employer] procedure are i n the results section. ECG 12-LEAD Routine 01/27/2019 7:06 AM Results for this [employer] procedure are i n the results section. APTT Routine 01/27/2019 5:55 AM Results for this [employer] procedure are i n the results section. POCT-GLUCOSE METER Routine 01/27/2019 3:52 AM Re sults for this [employer] procedure are i n the results section. BASIC METABOLIC PANEL Routine 01/27/2019 3:47 AM Results for this (7) [employer] procedure are i n the results section. APTT Routine 01/27/2019 3:47 AM Results for this [employer] procedure are i n the results section. CBC (HEMOGRAM ONLY) Routine 01/27/2019 3:47 AM R esults for this [employer] procedure are i n the results section. POCT-GLUCOSE METER Routine 01/26/2019 9:23 PM Re sults for this [employer] procedure are i n the results section. APTT Routine 01/26/2019 6:42 PM Results for this [employer] procedure are i n the results section. PLATELET COUNT Routine 01/26/2019 6:42 PM Result s for this [employer] procedure are i n the results section. POCT-GLUCOSE METER Routine 01/26/2019 1:34 PM Re sults for this [employer] procedure are i n the results section. POCT-GLUCOSE METER Routine 01/26/2019 8:21 AM Re sults for this [employer] procedure are i n the results section. ECG 12-LEAD Routine 01/26/2019 8:12 AM Results for this [employer] procedure are i n the results section. POCT-GLUCOSE METER Routine 01/26/2019 5:42 AM Re sults for this [employer] procedure are i n the results section. CBC (HEMOGRAM ONLY) Routine 01/26/2019 5:34 AM R esults for this [employer] procedure are i n the results section. TROPONIN I STAT 01/26/2019 5:34 AM Results for this [employer] procedure are i n the results section. LIPOPROTEIN (A) Routine 01/26/2019 5:34 AM Resul ts for this [employer] procedure are i n the results section. XR CHEST 1 VIEW Routine 01/25/2019 11:56 PM Resul ts for this PORTABLE/BEDSIDE [employer] procedure a re in the results section. CBC W/PLT COUNT & AUTO Routine 01/25/2019 11:19 PM Results for this DIFFERENTIAL [employer] procedure are i n the results section. APTT Routine 01/25/2019 11:19 PM Results for this [employer] procedure are i n the results section. APTT Routine 01/25/2019 11:19 PM Results for this [employer] procedure are i n the results section. PROTHROMBIN TIME/INR Routine 01/25/2019 11:19 PM Results for this [employer] procedure are i n the results section. CBC W/PLT COUNT & AUTO Routine 01/25/2019 11:19 PM Results for this DIFFERENTIAL [employer] procedure are i n the results section. B-TYPE NATRIURETIC Routine 01/25/2019 11:19 PM Re sults for this FACTOR (BNP) [employer] procedure are i n the results section. TROPONIN I STAT 01/25/2019 11:19 PM Results for this [employer] procedure are i n the results section. COMPREHENSIVE METABOLIC Routine 01/25/2019 11:19 PM Results for this PANEL [employer] procedure are i n the results section. MAGNESIUM Routine 01/25/2019 11:19 PM Results for this [employer] procedure are i n the results section. ECG 12-LEAD Routine 01/25/2019 10:51 PM Results for this [employer] procedure are i n the results section. POCT-GLUCOSE METER Routine 01/25/2019 10:10 PM Re sults for this [employer] procedure are i n the results section. RHYTHM STRIP - SCAN 01/01/2019 11:34 AM [employer] HELPER REPORT OF PROCEDURE - 12/27/2018 7:06 AM ENDOSCOPY SCAN [employer] CARDIAC CATH REPORT - 12/27/2018 7:06 AM SCAN [employer]PER RHYTHM STRIP - SCAN 12/27/2018 7:06 AM [employer] HELPER POCT-GLUCOSE METER Routine 12/25/2018 11:53 AM Re sults for this [employer] procedure are i n the results section. POCT-GLUCOSE METER Routine 12/25/2018 6:53 AM Re sults for this [employer] procedure are i n the results section. CALCIUM, IONIZED Routine 12/25/2018 4:14 AM Resu lts for this [employer] procedure are i n the results section. CBC W/PLT COUNT & AUTO Routine 12/25/2018 4:13 AM Results for this DIFFERENTIAL [employer] procedure are i n the results section. PHOSPHORUS Routine 12/25/2018 4:13 AM Results for this [employer] procedure are i n the results section. MAGNESIUM Routine 12/25/2018 4:13 AM Results for this [employer] procedure are i n the results section. B-TYPE NATRIURETIC Routine 12/25/2018 4:13 AM Re sults for this FACTOR (BNP) [employer] procedure are i n the results section. CBC W/PLT COUNT & AUTO Routine 12/25/2018 4:13 AM Results for this DIFFERENTIAL [employer] procedure are i n the results section. BASIC METABOLIC PANEL Routine 12/25/2018 4:13 AM Results for this (7) DERRICKMAN HELPER procedure are i n the results section. POCT-GLUCOSE METER Routine 12/24/2018 10:48 PM Re sults for this DERRICKMAN HELPER procedure are i n the results section. POCT-ACT Routine 12/24/2018 10:03 PM Results for this DERRICKMAN HELPER procedure are i n the results section. POCT-GLUCOSE METER Routine 12/24/2018 8:12 PM Re sults for this DERRICKMAN HELPER procedure are i n the results section. POCT-ACT Routine 12/24/2018 5:18 PM Results for this DERRICKMAN HELPER procedure are i n the results section. POCT-ACT Routine 12/24/2018 4:51 PM Results for this DERRICKMAN HELPER procedure are i n the results section. L CATH & PCI 12/24/2018 2:49 PM Non-STEMI (non-ST DERRICKMAN HELPER elevated myocardial infarction) (HCC) POCT-GLUCOSE METER Routine 12/24/2018 12:46 PM Re sults for this DERRICKMAN HELPER procedure are i n the results section. POCT-GLUCOSE METER Routine 12/24/2018 8:25 AM Re sults for this DERRICKMAN HELPER procedure are i n the results section. APTT Routine 12/24/2018 8:24 AM Results for this DERRICKMAN HELPER procedure are i n the results section. APTT Routine 12/24/2018 1:13 AM Results for this DERRICKMAN HELPER procedure are i n the results section. COMPREHENSIVE METABOLIC Routine 12/24/2018 1:13 AM Results for this PANEL DERRICKMAN HELPER procedure are i n the results section. ECG 12-LEAD Routine 12/23/2018 10:36 PM Results for this DERRICKMAN HELPER procedure are i n the results section. POCT-GLUCOSE METER Routine 12/23/2018 5:53 PM Re sults for this DERRICKMAN HELPER procedure are i n the results section. APTT Routine 12/23/2018 4:08 PM Results for this DERRICKMAN HELPER procedure are i n the results section. POCT-GLUCOSE METER Routine 12/23/2018 12:58 PM Re sults for this DERRICKMAN HELPER procedure are i n the results section. POCT-GLUCOSE METER Routine 12/23/2018 8:40 AM Re sults for this DERRICKMAN HELPER procedure are i n the results section. CBC W/PLT COUNT & AUTO Routine 12/23/2018 5:20 AM Results for this DIFFERENTIAL DERRICKMAN HELPER procedure are i n the results section. TROPONIN I Routine 12/23/2018 5:20 AM Results for this DERRICKMAN HELPER procedure are i n the results section. APTT Routine 12/23/2018 5:20 AM Results for this DERRICKMAN HELPER procedure are i n the results section. B-TYPE NATRIURETIC Routine 12/23/2018 5:20 AM Re sults for this FACTOR (BNP) DERRICKMAN HELPER procedure are i n the results section. CBC W/PLT COUNT & AUTO Routine 12/23/2018 5:20 AM Results for this DIFFERENTIAL DERRICKMAN HELPER procedure are i n the results section. PHOSPHORUS Routine 12/23/2018 5:20 AM Results for this DERRICKMAN HELPER procedure are i n the results section. MAGNESIUM Routine 12/23/2018 5:20 AM Results for this DERRICKMAN HELPER procedure are i n the results section. COMPREHENSIVE METABOLIC Routine 12/23/2018 5:20 AM Results for this PANEL DERRICKMAN HELPER procedure are i n the results section. CALCIUM, IONIZED Routine 12/23/2018 5:20 AM Resu lts for this DERRICKMAN HELPER procedure are i n the results section. ECG 12-LEAD Routine 12/23/2018 4:44 AM Results for this DERRICKMAN HELPER procedure are i n the results [...] PCI 11/12/2018 3:58 PM Unstable angina CDT ([facility]) C. DIFFICILE GDH TOXIN Routine 11/12/2018 2:14 [...] 456 ms QTC Calculation(Bazett) 519 ms P [place] 75 degrees R [place] 50 degrees T [place] 44 degrees Normal sinus rhythm Incomplete left [...] 452 ms QTC Calculation(Bazett) 494 ms P [place] 73 degrees R [place] 34 degrees T [place] 92 degrees Normal sinus rhythm Cannot rule out Anterior inf arct , age undetermined Abnormal ECG When compared with ECG of 08:00, Minimal criteria for Anterio r infarct are now Present ST no longer depressed in An terior leads ECG 12-LEAD STAT 11/11/2018 12:12 AM CDT Resu lts for this procedure are in the results section . after 10/08/2018 Results VASCULAR DIAGRAM -SCAN (05/31/2019 12:41 PM [...] (H)Comment: : Notified 70 - 110 mg/dL [facility] RN/MD: TESTED AT [facility] [address] [place] [address], [id number]: Tin Plater/Electronic News Gathering Camera Person ID = [id number] for LIZ WATSON Specimen Blood Performing Organization Address City/State/Zipcode Phone Number [address] [phone] CENTER EKG-SCANNED (05/29/2019 12:10 PM CDT)Only the most recent of6 resultswithin the time period is included. Narrative Performed At This result has an attachment that is no t available. Platelet Aggregation: Drug Effect (05/29/2019 9:27 AM CDT) Arachadonic Acid 13 (L) 63 - 89 % [facility] ER Interpretation Decreased response to arachi donic acid suggests aspirin-like effect. [facility] Decreased aggregation with A DP which indicates platelet dysfunction that may be due to medication effect, uremia, or other platelet function disorders.Clinical correlation is required. [facility] Pathologist: Talia Villarreal MD [facility] (electronic signature) [facility] Platelets 184 150 - 450 K/CU MM [facility] ER ADP 11 (L) 62 - 100 % [facility] Platelet Rich Plasma 243 200 - 300 k/cu mm [facility] Specimen Blood Narrative Performed At Platelet function studies by aggregation [facility] methodology on samples with platelet count <75,000/CU MM are unreliable; platelet function assessment should not be based on a single test. Tin Plater ID - [id number] Performing Organization Address [facility]/Zipcode Phone Number [address] [address] [place] Calcium, Ionized (05/29/2019 4:41 AM CDT)Only the most recent of8 resultswithin the time period is included. Calcium, Ion 1.16 1.12 - 1.27 mmol/L [facility] pH, Blood 7.40 [facility] Specimen Blood Performing Organization Address City/[facility]/Zipcode Phone Number [address] [address] [place] CBC with platelet count + automated diff (05/29/2019 4:41 AM CDT)Only the most recent of15 resultswithin the time period is included. WBC 6.4 3.5 - 10.5 K/L [facility] RBC 3.26 (L) 3.93 - 5.22 M/L [facility] Hemoglobin 10.1 (L) 11.2 - 15.7 GM/DL [facility] Hematocrit 30.3 (L) 34.1 - 44.9 % [facility] MCV 92.9 79.4 - 94.8 fL [facility] MCH 31.0 25.6 - 32.2 pg [facility] MCHC 33.3 32.2 - 35.5 GM/DL [facility] RDW 13.1 11.7 - 14.4 % [facility] Platelets 183 150 - 450 K/CU MM [facility] MPV 9.9 9.4 - 12.3 fL [facility] nRBC 0 0 - 0 /100 WBC [facility] % Neutros 70 % [facility] % Lymphs 19 % [facility] % Monos 9 % [facility] % Eos 1 % [facility] % Baso 1 % [facility] # Neutros 4.47 1.56 - 6.13 K/L [facility] # Lymphs 1.20 1.18 - 3.74 K/L [facility] # Monos 0.59 (H) 0.24 - 0.36 K/L [facility] # Eos 0.08 0.04 - 0.36 K/L [facility] # Baso 0.04 0.01 - 0.08 K/L [facility] Immature Granulocytes-Relative 0 0 - 1 % C HI [facility] Specimen Blood Performing Organization Address City/State/Zipcode Phone Number [facility] [address] [place] [address] CENTER CBC (hemogram only) (05/29/2019 4:41 AM CDT)Only the most recent of10 results within the time period is included. WBC 6.4 3.5 - 10.5 K/L [facility] RBC 3.26 (L) 3.93 - 5.22 M/L [facility] Hemoglobin 10.1 (L) 11.2 - 15.7 GM/DL [facility] Hematocrit 30.3 (L) 34.1 - 44.9 % [facility] MCV 92.9 79.4 - 94.8 fL [facility] MCH 31.0 25.6 - 32.2 pg [facility] MCHC 33.3 32.2 - 35.5 GM/DL [facility] RDW 13.1 11.7 - 14.4 % [facility] Platelets 183 150 - 450 K/CU MM [facility] MPV 9.9 9.4 - 12.3 fL [facility] nRBC 0 0 - 0 /100 WBC [facility] Specimen Blood Performing Organization Address City/[facility] Phone Number [address] [address] CENTER Uric acid (05/29/2019 4:41 AM CDT)Only the most recent of2 resultswithin the time period is included. Uric Acid 9.0 (H) 2.6 - 7.2 mg/dL [facility] Specimen Blood Narrative Performed At Tin Plater ID - MELI [facility] Performing Organization Address [facility] Hospitalcode Phone Number [address] [address] CENTER Phosphorus (05/29/2019 4:41 AM CDT)Only the most recent of9 resultswithin the time period is included. Phosphorus 3.7 2.3 - 4.7 mg/dL [facility] Specimen Blood Narrative Performed At Tin Plater ID - [facility] Performing Organization Address City/[facility] Hospitalcode Phone Number [address] [address] CENTER B-type Natriuretic Factor (BNP) (05/29/2019 4:41 AM CDT)Only the most recent of 11 resultswithin the time period is included. BNP 1,228 (H) 0 - 100 pg/mL [facility] Specimen Blood Narrative Performed At Tin Plater ID - [facility] Performing Organization Address [facility] Hospital[facility] Phone Number [address] [address] CENTER Magnesium (05/29/2019 4:41 AM CDT)Only the most recent of13 resultswithin the time period is included. Magnesium 2.1 1.6 - 2.6 mg/dL [facility] Specimen Blood Narrative Performed At [facility]ater [facility] Performing Organization Address [facility] Phone Number [address] [address] CENTER Creatine Kinase (CK) (05/29/2019 4:41 AM CDT) Total CK 94 29 - 200 U/L [facility] Specimen Blood Narrative Performed At Tin Plater ID - [facility] Performing Organization Address [facility] Phone Number [address] [address] [place] Basic metabolic panel (05/29/2019 4:41 AM CDT)Only the most recent of15 results within the time period is included. Sodium 135 (L) 136 - 145 meq/L [facility] Potassium 3.8 3.5 - 5.1 meq/L [facility] Chloride 98 98 - 107 meq/L [facility] CO2 27 22 - 29 meq/L [facility] BUN 73 (H) 7 - 21 mg/dL [facility] Creatinine 3.31 (H) 0.57 - 1.25 mg/dL [facility] Glucose 269 (H) 70 - 105 mg/dL [facility] Calcium 9.1 8.4 - 10.2 mg/dL [facility] EGFR 13Comment: ESTIMATED GFR IS mL/min/1.73 sq m [facility] NOT ACCURATE CREATININE [facility] CLEARANCE IN PREDICTING GLOMERULAR FILTRATION RATE. ESTIMATED GFR IS NOT APPLICABLE FOR DIALYSIS PATIENTS. Specimen Blood Narrative Performed At Tin Plater ID - MELI Ott [facility] Performing Organization Address City/State/Zipcode Phone Number [facility] [address] [place] [address] CENTER US renal complete (05/29/2019 1:30 AM CDT)Only the most recent of2 results within the time period is included. Specimen Narrative Performed At FINAL REPORT Abcellute U/S, RENAL, COMPLETE Comparison 08/02/2018, 03/22/2019 Clinical [...] cyst is stable in size . Signed: Ocoha Wiley MD Report Verified Date/Time: 05/29/2019 0 3:58:20 Performing Organization Address City/[facility] Hospitalcode Phone Number [facility] POC ACTIVATED CLOTTING TIME (05/28/2019 8:28 PM CDT)Only the most recent of17 resultswithin the time period is included. Activated Clotting Time 136Comment: : 74-137 sec [facility] seconds, Baseline: TESTED [facility] CENTER AT [address], [id number]: Tin Plater/Electronic News Gathering Camera Person ID = [id number] for DARIAN SQUIRES Specimen Blood Performing Organization Address [facility]/Zipcode Phone Number [address] [address] CENTER Urinalysis w/Microscopic (05/28/2019 6:20 PM CDT)Only the most recent of5 resultswithin the time period is included. Color, UA Light Yellow [facility] Clarity, UA Clear [facility] Specific Calera, UA 1.012 1.001 - 1.035 [facility] pH, UA 6.0 5.0 - 8.0 [facility] Protein, UA 20 mg/dL (A) Negative [facility] Glucose, UA 150 mg/dL (A) Negative [facility] Ketones, UA Negative Negative [facility] Bilirubin, UA Negative Negative [facility] Blood, UA Trace (A) Negative [facility] Nitrite, UA Negative Negative [facility] Leukocytes, UA Negative Negative [facility] Urobilinogen, UA 0.2 0.2 - 1.0 mg/dL [facility] RBC, UA 1 /HPF [facility] WBC, UA <1 /HPF [facility] Bacteria, UA Many [facility] Specimen Source [facility] Specimen Urine Narrative Performed At Tin Plater ID - [auto] [facility] Tin Plater ID - ny Performing Organization Address City/State/Zipcode Phone Number [facility] [address] [place] [address] CENTER Venous doppler legs bilateral (05/28/2019 5:05 PM CDT) Ejection Fraction [facility] ECHO HEAR TLAB [facility] CPACS Specimen Impressions Performed At Right Impression [facility] ECHO HEARTLAB [facility] CPACS 1. There [...] PV LAB - Lower Extremities DVT Study [facility] ECHO HEARTLAB [facility]ON [facility] Demographics Patient Name SUZAN ARECHIGA Date of Study05/28/2019 CAPRICE BDEO [id number] Visit Number [id number] Gender Female Accession Number [id number] Date of Birth1940 [facility] Number [id number] Physician SonographerSly Shelby [...] 05/28/2019 ESCOBDEO A ge 78 Visit Number [id number] G tomas Female Accession Number [id number] D ate of 1940 Referring [place] Number [id number] Physician Tractor Drill Operator Sly Shelby T I nterpreting Suhail Stroud [...] period is included. Sodium Urine 35 meq/L [facility] Specimen Urine Narrative Performed At Reference Range: No Normals [facility] Tin Plater ID - BS Performing Organization Address City/[facility]/Zipcode Phone Number [facility] [address] [place] [address] CENTER Protein, random urine (05/28/2019 12:35 PM CDT)Only the most recent of4 results within the time period is included. Protein, Urine 10 0 - 14 mg/dL [facility] Specimen Urine Narrative Performed At Tin Plater ID - BS [facility] Performing Organization Address City/State/Zipcode Phone Number [address] [address] [place] Creatinine, random urine (05/28/2019 12:35 PM CDT)Only the most recent of4 resultswithin the time period is included. Creatinine, Ur 65.1 mg/dL [facility] Specimen Urine Narrative Performed At Reference Range: No Normals [facility] Tin Plater ID - BS Performing Organization Address [facility]/Zipcode Phone Number [address] [address] [place] aPTT (05/28/2019 8:11 AM CDT)Only the most recent of32 resultswithin the time period is included. PTT 67.2 (H) 22.5 - 36.0 seconds [facility] Specimen Blood Performing Organization Address [facility] Phone Number [address] [address] [place] Troponin I (05/28/2019 4:20 AM CDT)Only the most recent of16 resultswithin the time period is included. Troponin I 1.06 (HH) 0.00 - 0.03 ng/mL [facility] Specimen Blood Narrative Performed At Troponin I (TnI) levels must be interpreted [facility] in the context of the presenting symptoms and the clinical findings. Elevated TnI levels indicate myocardial damage, but are not specific for ischemic heart disease. Elevated TnI levels are seen in patients with other cardiac conditions (including myocarditis and congestive heart failure), and slight TnI elevations occur in patients with other conditions, including sepsis, renal failure, acidosis, acute neurological disease, and persistent tachyarrhythmia. Tin Plater ID - BS Performing Organization Address City/[facility]/Zipcode Phone Number [address] [address] CENTER PT/aPTT (05/27/2019 11:41 PM CDT)Only the most recent of6 resultswithin the time period is included. Protime 13.3 11.9 - 14.2 seconds [facility] INR 1.0 <=5.9 [facility] PTT 25.2 22.5 - 36.0 seconds [facility] Specimen Blood Narrative Performed At Effective 07/18/2018: PT Reference Range [facility] Change New: 11.9-14.2Previous: 11.7-14.7 RECOMMENDED COUMADIN/WARFARIN INR THERAPY RANGES STANDARD DOSE: 2.0-3.0Includes: PROPHYLAXIS for venous thrombosis, systemic embolization; TREATMENT for venous thrombosis and/or pulmonary embolus. HIGH RISK: Target INR is 2.5-3.5 for patients wiht mechanical heart valves. Performing Organization Address City/[facility] Hospital[facility] Phone Number [address] [address] CENTER Platelet count (05/27/2019 11:22 PM CDT)Only the most recent of2 resultswithin the time period is included. Platelets 209 150 - 450 K/CU MM [facility] Specimen Blood Narrative Performed At Tin Plater ID - [id number] [facility] Performing Organization Address City/[facility] Hospital[facility] Phone Number [facility] [address] [place] [address] CENTER ECG 12 lead (05/27/2019 11:14 PM CDT)Only the most recent of14 resultswithin the time period is included. Specimen Narrative Performed At Ventricular Rate 91 BPM GE MUSE Atrial Rate 91 BPM P-R Interval 184 ms QRS Duration 112 ms Q-T Interval 410 ms QTC Calculation(Bazett) 504 ms P [place] 80 degrees R [place] 53 degrees T [place] 215 degrees Normal sinus rhythm Incomplete left [...] 410 ms QTC Calculation(Bazett) 504 ms P [place] 80 degrees R [place] 53 degrees T [place] 215 degrees Normal sinus rhythm Incomplete left bundle branch block ST depression inferior and anterolateral leads + ST elevation in aVR consider ischemia Prolonged QT Abnormal ECG When compared with ECG of 22:06 ST now depressed in Lateral leads ST now elevated in aVR Confirmed by MD PATEL YOCHAI ([id number]) on 05/28/2019 6:33:47 AM Performing Organization Address City/State/Zipcode Phone Number [employer] XR chest 1 view portable / bedside (05/27/2019 11:05 AM CDT)Only the most recent of6 resultswithin the time period is included. Specimen Narrative Performed At FINAL REPORT [facility]cellute RAD, CHEST, 1 VIEW, NON DEPT INDICATION: [...] CATH REPORT - SCAN (03/26/2019 8:41 AM DERRICKMAN HELPER) Narrative Performed At This result has an attachment that is no t available. CARDIAC CATH REPORT - SCAN (03/26/2019 8:41 AM DERRICKMAN HELPER) Narrative Performed At This result has an attachment that is no t available. Comprehensive metabolic panel (03/23/2019 5:27 AM DERRICKMAN HELPER)Only the most recent of8 resultswithin the time period is included. Protein, Total 6.3Comment: Specimen 6.0 - 8.3 gm/dL [facility] slightly hemolyzed [facility] Albumin 3.4 (L)Comment: Specimen 3.5 - 5.0 g/dL [facility] slightly hemolyzed [facility] Alkaline Phosphatase 52 40 - 150 U/L [facility] Total Bilirubin 0.4Comment: Specimen 0.2 - 1.2 mg/dL [facility] slightly hemolyzed [facility] Sodium 140 136 - 145 meq/L [facility] Potassium 4.1Comment: Specimen 3.5 - 5.1 meq/L [facility] slightly hemolyzed [facility] Chloride 102 98 - 107 meq/L [facility] CO2 25 22 - 29 meq/L [facility] BUN 49 (H) 7 - 21 mg/dL [facility] Creatinine 2.86 (H)Comment: 0.57 - 1.25 mg/dL [facility] Specimen slightly [facility] hemolyzed Glucose 164 (H) 70 - 105 mg/dL [facility] Calcium 9.0 8.4 - 10.2 mg/dL [facility] AST 27Comment: Specimen 5 - 34 U/L [facility] slightly hemolyzed [facility] ENTER ALT 14Comment: Specimen 6 - 55 U/L [facility] slightly hemolyzed [facility] EN[facility] EGFR 16Comment: ESTIMATED GFR mL/min/1.73 sq m [facility] IS NOT ACCURATE [facility] CREATININE CLEARANCE IN PREDICTING GLOMERULAR FILTRATION RATE. ESTIMATED GFR IS NOT APPLICABLE FOR DIALYSIS PATIENTS. Specimen Blood Narrative Performed At Tin Plater ID - PIAYA L [facility] Performing Organization Address City/State/Zipcode Phone Number [facility] [address] [place] [address] CENTER ECHOCARDIOGRAM REPORT - SCAN (03/22/2019 9:20 PM DERRICKMAN HELPER) Narrative Performed At This result has an attachment that is no t available. Carotid doppler bilateral (03/22/2019 7:42 PM DERRICKMAN HELPER) Ejection Fraction [facility] ECHO HEAR TLAB [facility] CPACS Specimen Impressions Performed At Right Impression [facility] ECHO HEARTLAB [facility] CPACS 1. There [...] Performed At LAB - Carotid Duplex Study [facility] ECHO HEARTLAB [facility]ON [facility] Demographics Patient Name SUZAN ARECHIGA Date of Study03/22/2019 CAPRICE CINDY [id number] Visit Number [id number] Gender Female Accession Number [id number] Date of Birth1940 [facility] Room Number C633 Physician JohnieographApolinar De RVTInterpreting [...] External Ris In - 03/23/2019 9:28 AM DERRICKMAN HELPER PV LAB - Carotid Duplex Study Demographics Patient Name SUZAN ARECHIGA D ate of Study 03/22/2019 ESCOBDEO A ge 78 Visit Number [id number] G tomas Female Accession Number [id number] D ate of 1940 [id number] Physician Tractor Drill Operator Isabela De T I nterpreting Suhail Stroud [...] V 1.49.ICAEDV/CCAEDV 1.48. Performing Organization Address City/State/[facility] Phone Number [facility] [employer] [facility] 2D Echo W/Doppler(CW/PW/Color) (03/22/2019 2:04 PM DERRICKMAN HELPER) Ejection Fraction [facility] ECHO HEAR TLAB [facility] Specimen Narrative Performed At Transthoracic Echocardiography Report (T TE) [facility] Demographics Patient Name SUZAN ARECHIAG Date of Study 03/22/2019 ESCOBDEO [id number] GenderFemale Visit Number [id number] [facility] [id number] Room Number C63 [id number] Number Date of Birth1940 Referring Physician Peyton Choe Age78 year(s) Tractor Drill Operator Daniel Acosta MD Physician Procedure Type of [...] External Ris In - 03/22/2019 5:25 PM DERRICKMAN HELPER Transthoracic Echocardiography Report (TTE) Demographics Patient Name SUZAN ARECHIGA ate of Study 03/22/2019 SARAI G tomas Female Visit Number [id number] R matthias R oom Number [id number] Number [...] T CI: 4.1 l/min/m^2 Performing Organization Address [facility] Phone Number [facility] MKCKESSON CPACS Lipid panel (03/22/2019 2:06 AM DERRICKMAN HELPER)Only the most recent of2 resultswithin the time period is included. Triglycerides 102 mg/dL [facility] Cholesterol 161 mg/dL [facility] HDL 40 mg/dL [facility] LDL Calculated 101 mg/dL [facility] Specimen Blood Narrative Performed At Triglyceride Reference Range: [facility] Low Risk <150 [id number] High Risk 200-499 Very High Risk>=500 Cholesterol Reference Range: Low Risk <200 Ghlxnkjlho235-298 High Risk>240 HDL Cholesterol Reference Range: Low Risk >=60 High Risk <40 LDL Cholesterol Reference Range: Optimal<100 Near Fkxqwak945-819 Hfsdgodnis351-123 Vxbf510-024 Very High >=190 Tin Plater ID - PIAYA L Performing Organization Address [facility] Phone Number [address] [address] C[place] US abdomen complete (03/22/2019 12:10 AM DERRICKMAN HELPER) Specimen Narrative Performed At FINAL REPORT [facility] INDICATION: abd pain COMPARISON: Renal ultrasound dated [...] External Ris In - 03/22/2019 1:53 AM DERRICKMAN HELPER FINAL REPORT INDICATION: abd pain COMPARISON: [...] 1:50:03 Performing Organization Address City/State/Zipcode Phone Number [facility] CT brain without IV contrast (03/21/2019 4:58 PM DERRICKMAN HELPER) Specimen Narrative Performed At FINAL REPORT [facility] CT, BRAIN, WITHOUT CONTRAST INDICATION: Left sided [...] cranial-cervical fusion hardware limits evaluation of the electrotype molder ior fossa. No intracranial hemorrhage or abnormal [...] External Ris In - 03/21/2019 5:38 PM DERRICKMAN HELPER FINAL REPORT CT, BRAIN, WITHOUT CONTRAST [...] cranial-cervical fusion hardware limits evaluation of the electrotype molder ior fossa. No intracranial hemorrhage or abnormal [...] 2 views min left (03/21/2019 2:25 PM DERRICKMAN HELPER) Specimen Narrative Performed At FINAL REPORT [...] MD Report Verified Date/Time:03/21/2019 14:38:21 [place] [facility] [place] Procedure Note Interface, External Ris In - 03/21/2019 2:40 PM DERRICKMAN HELPER FINAL REPORT RAD, SHOULDER, COMPLETE (MIN [...] Verified Date/Time: 03/21/2019 1 4:38:21 [facility] [place] Performing Organization Address City/State/Zipcode Phone Number GE RIS REPORT OF PROCEDURE - ENDOSCOPY URL (03/21/2019 12:27 PM DERRICKMAN HELPER) Narrative Performed At This result has an attachment that is no t available. Hemoglobin A1c (03/20/2019 12:43 AM DERRICKMAN HELPER)Only the most recent of3 resultswithin the time period is included. Hemoglobin A1C 8.5 (H) 4.3 - 6.1 % [facility] Specimen Blood Performing Organization Address [facility] Phone Number [address] [address] [place] ECHOCARDIOGRAM REPORT - SCAN (01/28/2019 9:21 PM DERRICKMAN HELPER) Narrative Performed At This result has an attachment that is no t available. Clostridium difficile [facility] Toxin (01/28/2019 6:41 PM DERRICKMAN HELPER)Only the most recent of 2 resultswithin the time period is included. C. Difficle Toxin Negative Negative [facility] C. Difficile [facility] Antigen Positive (A)Comment: C. Negative [facility] difficile present but toxin [facility] not detected. Indicates colonization with non-toxigenic strain or level of toxin below detectable levels. No need for enteric isolation. Treatment is rarely needed (only when strong clinical suspicion for Clostridium difficile infection) Specimen Stool Narrative Performed At Testing performed by [employer] [facility] Assay.For GDH, published sensitivity of the assay is 98.7% compared to cytotoxicity testing.For Toxin AB, published sensitivity is 87.8% and specificity 99.4% compared to cytotoxicity testing. Verification of kit performance was done by the [facility] prior to clinical use. Performing Organization Address [facility] Phone Number [address] [phone] [place] Occult blood, stool (01/28/2019 6:40 PM DERRICKMAN HELPER) Occult blood Negative Negative [facility] Specimen Stool Performing Organization Address City/[facility]/Zipcode Phone Number [address] [address] [place] Transthoracic 2D echo w/ doppler (cw/pw/color) (01/28/2019 11:25 AM DERRICKMAN HELPER) Ejection Fraction [facility] ECHO HEAR TLAB [facility] Specimen Narrative Performed At Transthoracic Echocardiography Report (T TE) [facility] ECHO HEARTLAB MKCKESSON [facility] Demographics Patient NameCARRILLORADHASUZAN Date of Study01/28/2019 ESCOBDEO Gender Female Visit [id number] Race Merced lundberg [id number] Number Date of 1940 Referring Physician Age 78 year(s) SonographPauly Dozier [facility] Interpreting Physician XIMENA Cormier Procedure Type of [...] External Ris In - 01/28/2019 3:33 PM DERRICKMAN HELPER Transthoracic Echocardiography Report (TTE) Demographics Patient Name SUZAN ARECHIGA Date of Study 01/28/2019 SARAI Gend er Female Visit Number [id number] Race Room Number 8A11 Number Date of [...] 2.52 l/min/m^2 Performing Organization Address City/[facility] Phone Number [facility] MK[facility] CPACS Lipoprotein (a) (01/26/2019 5:34 AM DERRICKMAN HELPER) Lipoprotein (a) 57 <75 nmol/L [facility] Specimen Blood Narrative Performed At Performing Lab [facility] [employer] [employer] [facility] [place] [address] [address] [place] [address] I Bright BUENO, PhD, ROBY Performing Organization Address [facility] Phone [place] [address] [facility] [address] [facility] Prothrombin time/INR (01/25/2019 11:19 PM DERRICKMAN HELPER) Protime 13.2 11.9 - 14.2 seconds [facility] INR 1.1 <=5.9 [facility] Specimen Blood Narrative Performed At Effective 07/18/2018: PT Reference Range [facility] Change New: 11.9-14.2Previous: 11.7-14.7 RECOMMENDED COUMADIN/WARFARIN INR THERAPY RANGES STANDARD DOSE: 2.0-3.0Includes: PROPHYLAXIS for venous thrombosis, systemic embolization; TREATMENT for venous thrombosis and/or pulmonary embolus. HIGH RISK: Target INR is 2.5-3.5 for patients wiht mechanical heart valves. Prior to initiating heparin Performing Organization Address City/[facility] Phone Number [facility] [address] [place] [address] [place] CARDIAC CATH REPORT - SCAN (12/27/2018 7:06 AM DERRICKMAN HELPER) Narrative Performed At This result has an attachment that is no t available. Iron, TIBC, % sat. (without ferritin) (12/22/2018 4:53 AM CDT) Iron 85.0 40.0 - 160.0 ug/dL [facility] TIBC 226 (L) 250 - 450 ug/dL [facility] Iron % Saturation 38 20 - 55 % [facility] Specimen Blood Performing Organization Address City/[facility]/[place] [address] [place] Ferritin (12/22/2018 4:53 AM CDT) Ferritin 195 5 - 275 ng/mL [facility] Specimen Blood Performing Organization Address City/[facility]/[place] [address] [place] Reticulocyte count (12/22/2018 4:52 AM CDT) % Retic 2.0 (H) 0.5 - 1.7 % [facility] Specimen Blood Performing Organization Address [facility] [place] [address] [place] ECHOCARDIOGRAM REPORT - SCAN (12/21/2018 9:21 PM CDT) Narrative Performed At This result has an attachment that is no t available. 2D Echo W/Doppler(CW/PW/Color) (12/21/2018 10:22 AM CDT) Ejection Fraction [facility] Specimen Narrative Performed At Transthoracic Echocardiography Report (T TE) [facility] ECHO HEARTLAB CKESSON [facility] Demographics Patient Name SUZAN ARECHIGA Date of Study12/21/2018 ESCOBDEO [id number] Gender Female Visit Number [id number] Race [id number] m [id number] Number Date of [facility] Physician Age78 year(s) SonographerColin Cutler, RDCS,RVT,RDMS [...] Study 12/21/2018 SARAI Gender Female Visit Number [id number] Race Room [facility] 6105 Number Date of 1940 Referri ivette Palmer S Physici an Age 78 year(s) Sonogra pher Destini Silva, NB, RDCS,RVT,RDMS Math Specialist Nader Finley Interpr eting Kash Carr MD [...] Diastolic: 1.19 cm LVEDV Beauchamp's:90.82 ml LVESV Baeuchamp's:47.74 ml LVEF Beauchamp's: 47.4 % LVEDVI: 53 [...] City/State/Zipcode Phone Number [facility] HEART[facility] MKCKESSON [facility] CRITICAL CARE (12/20/2018 [...] CDT) Specimen Narrative Performed At FINAL REPORT [facility] PROCEDURE: MYOCARDIAL PERFUSION PET IMAG ING (Rest/Stress) CPT CODE: 39450 INDICATION: Evaluate extent of known CAD , [...] Chest discomfort, nausea, fati crystal (Treatment was [id number] IV). Perfusion: There is an absence of [...] Report Verified Date/Time:11/12/2018 15:26:40 Reading Location: [address] Reading Room Procedure Note Interface, External Ris In - 11/12/2018 3:28 PM CDT FINAL REPORT PROCEDURE: MYOCARDIAL PERFUSION PET IMAG ING (Rest/Stress) CPT CODE: [id number] INDICATION: Evaluate extent of known CAD , [...] Chest discomfort, nausea, fati crystal (Treatment was [id number] IV). Perfusion: There is an absence of [...] Verified Date/Time: 11/12/2018 1 5:26:40 Reading Location: [id number] [facility] Reading Room Performing Organization Address City/State/Zipcode [...] 1:04:52 PM Confirmed by MD LOZANO JORGE ([id number]) on 11/23/2018 3:0 5:01 PM Procedure Note [...] 1:04:52 PM Confirmed by MD MARTA, INDRA ([id number]) on 11/23/2018 3:05:01 PM Performing Organization Address City/State/Zipcode Phone Number [employer] ECHOCARDIOGRAM REPORT - SCAN (11/11/2018 9:20 PM CDT) Narrative Performed At This result has an attachment that is no t available. Transthoracic 2D echo w/ doppler (cw/pw/color) (11/11/2018 1:14 PM CDT) Ejection Fraction [facility] ECHO HEAR TLAB MKCKESSON [facility] Specimen Narrative Performed At Transthoracic Echocardiography Report (T TE) [facility] ECHO HEARTLAB MKCKESSON [facility] Demographics Patient NameCARRISUZAN MOSES Date of Study11/11/2018 ESCOBDEO Gender Female Visit [id number] Race Hispan[place] c [id number] Number Date of 1940 [facility] Ch[facility] Physician Age 78 year(s) SonographerRenanian Levi RDCS Math Specialist Amber Kaplan RDCS Interpreting Garry davis Physician [...] 11/11/2018 ESCOBDEO Gend er Female Visit Number [id number] Race Room Number [id number] Number Date of 1940 Refe dali bradley Age 78 year(s) Johnieo roxann Sims RDMADHU Math Specialist Amber Kaplan RDCS Inte rpreting Tramaine Cormier [...] T CI: 2.37 l/min/m^2 Performing Organization Address [facility] Phone Number [facility] MKCKESSON CPACS TSH/T4 if indicated (11/11/2018 12:39 AM CDT) TSH 1.17 0.35 - 4.94 uIU/mL [facility] Specimen Blood Performing Organization Address [facility] Phone Number [address] [address] [place] Hepatic function panel (11/11/2018 12:39 AM CDT) Protein, Total 7.3Comment: Specimen 6.0 - 8.3 gm/dL [facility] hemolyzed [facility] Albumin 3.9Comment: Specimen 3.5 - 5.0 g/dL [facility] hemolyzed [facility] Total Bilirubin 0.5Comment: Specimen 0.2 - 1.2 mg/dL [facility] hemolyzed [facility] Bilirubin, Direct 0.2Comment: Specimen 0.1 - 0.5 mg/dL [facility] slightly hemolyzed [facility] Alkaline Phosphatase 129 40 - 150 U/L [facility] AST 18Comment: Specimen 5 - 34 U/L [facility] slightly hemolyzed [facility] ALT 11Comment: Specimen 6 - 55 U/L [facility] slightly hemolyzed [facility] Specimen Blood Performing Organization Address [facility] Phone Number [address] [address] [place] after 10/08/2018 Insurance Payer Benefit Plan / Group Subscriber ID Type Phone A ddress SUB [employer] SUB ONE [employer]CH[employer]LEY ALL xxxxxxxx Maps Contracted MEDICAID MEDICAID [facility] xxxxxxxxx Medicaid Advance Directives Patient has advance care planning documents, and code status on file. For more information, please contact:[place] [id number] [place], [place] [phone] Code Status Date Activated Date Inactivated Comments [...]
--- OUTSIDE RECORDS SUMMARY | 2019-10-09 14:58 | XMS REPORT ---
[...] Problem Coronary artery disease involving I25.110 Active [place] coronary artery of [place] heart with unstable angina pectoris Problem History of cholecystectomy Z90.49 A ctive Problem Stented coronary artery Z95.5 Acti ve Problem 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 Ac tive classified elsewhere Problem Chronic kidney disease, stage 4 N18.4 Active (severe) Problem At risk for falling Z91.81 Active Problem Atherosclerosis of [place] coronary I25.10 Active artery Problem Cervical stenosis of spine M48.02 A ctive Problem Type 2 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 Problem Hypertensive heart disease without I11.9 Active heart failure Problem intermission coordinator current 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 Z79.4 Active Medications No Known Medications Results No Known Results Summary Purpose eClinicalWorks Submission
--- OUTSIDE RECORDS SUMMARY | 2019-10-09 14:58 | XMS REPORT | Continuity of Care Document ---
:1940 Author Organization [facility] t Address [address] [place] [address] Dr. Galindo. [address] [place] [address] Care Team Providers Name Role Phone Marcos Perry Primary Care Physician Unavailable Heidy JEREZ, A Attending Clinician Unavailable Pob, Lab Main Attending Clinician Unavailable Ky JEREZ, A Attending Clinician Unavailable EVELIN MAHMOOD Attending Clinician Unavailable Evelin Mahmood MD Attending Clinician Дмитрий Cortes MD Attending Clinician Manjula BUENO, Tiffanie Attending Clinician Latrell Gaemz MD Attending Clinician Jamaica Bojorquez MD Attending [...] Clinician Unavailable JAMAICA BOJORQUEZ Admitting Clinician Unavailable ALEKSADNER BELCHER Admitting Clinician Unavailable PAUL Admitting Clinician Unavailable Olman STUART Admitting Clinician Unavailable Payers Payer Name Policy Policy Number Effective Expiration Source Type Date Date CIGNA HEALTHSPRINGCIGNA xxxxxxxx [facility] MEDICAIDMEDICAID OF xxxxxxxxx [facility] [place] Problems Condition Condition Condition Status Onset [...] 00:00: Medical involving involving 00 Cent er [place] [place] [facility] [place] [facility] coronary coronary artery of artery of [place] [employer] [employer] heart heart H/O stroke H/O stroke Disease [...] [facility] - and renal and renal 00:00: [facility] disease disease 00 Center with with [...] to type 2 to type 2 00:00: [facility] diabetes diabetes 00 Center mellitus mellitus [...] (insulin 08-01 [facility] - dependent dependent 00:00: [facility] diabetes diabetes 00 Center mellitus) mellitus) [...] Amalia kes - is is Memoria l [facility] Stented Stented Problem Active [facility] coronary coronary [facility] - artery artery Memoria l Outpati ent Clinics Proteinuri Proteinuri Problem Active [facility] a, a, [facility]ukes - unspecifie unspecifie Me moria d d l [facility] 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 [facility] - [place] Memoria coronary coronary l artery artery Outpati [...] l (severe) (severe) Outpat i ent Clinics 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 Problem Active [facility] current current [facility]ukes [...] - kg/sq m kg/sq m Memoria l [facility] Coronary Coronary Problem Active [facility] artery artery [facility] - disease disease Memoria involving involving l [place] [facility] [facility] coronary coronary ent artery of artery of Clin ics [place] heart with heart with unstable unstable angina angina pectoris pectoris History of History of Problem Active [facility] cholecyste cholecyste Amalia kes - ctomy ctomy Memoria l [facility] Atrial Atrial Problem Active [facility] flutter, flutter, Lukes - unspecifie unspecifie Me moria d type d type l [facility] NSTEMI NSTEMI Problem [...] [facility]ukes - adverse 00:00: Medical reaction 00 [place] s Iodine Propensi Active Anaphylaxis [facility] [...] aminophe adverse 00:00: Medical n reaction 00 [place] [facility] iodine DA Active [facility] 07[facility]28 [facility] 00:00: Regiona 00 [facility] morphine DA Active [facility] 07[facility] 00:00: Regiona [facility] Benadryl Adverse Active Info Not [facility] Reaction Available [facility] - Memoria [facility] ALL PAIN Adverse Active Swelling of [facility] NARCOTIC Reaction throat, [facility] - S hands Memoria [facility] CONTRAST Adverse Active Info Not [facility] DYE Reaction Available [facility] - Memoria [facility] Amiodaro Adverse Active Info Not [facility] t ne HCl Reaction Available [facility]ukes - Memoria [facility] ent Clinics Levaquin Adverse Active Info Not [facility] Reaction Available [facility] - Memoria [facility] Social History Social Habit Start Date Stop Date Quantity Comments Source History SDOH Alcohol [facility] Std Drinks [facility] History SDOH Alcohol [facility] Binge [facility] Sex Assigned At [facility] History SDOH Alcohol 2018-11-10 2018-11-[address] [address] [facility] - Frequency 00:00:00 00:00:00 [facility] Smoking Status Start Date Stop Date Source Never smoker [facility] edical [place] Medications Ordered Filled Start Stop Current Ordering Indication Dosage Frequency Signature Comments Components Source Medication Medication Date Date Medication? Clinician (SIG) Name Name Ranolazine Ranolazine Yes John [address] [address] ER ER 4-15 [facility] - 00:00: Memoria 00 [facility] Brilinta Brilinta 2020-0 Yes John [address] 4-15 [facility] - 00:00: Memoria 00 l Outpati ent Clinics clopidogrel 2019-0 2020- No 1{tbl} QD Take [address] (PLAVIX) 75 4-08 04-08 tablet by Amalia kes - mg tablet 14:11: 00:00 mouth Medica l 09 :00 daily. [place] insulin 2019-0 Yes 10U QD Inject 10 [...] tablet 12:20: every Medical 17 other day. [place] cholecalcif 2019- Yes 4000U QD Take 4,[address] hsun, 1-28 Units by Lukes - vitamin D3, 23:31: mouth Medic al 4,000 unit 01 daily. [place] Tab calcitriol 2018-02 Yes .5ug QD Take 0.[address] (ROCALTROL) 2-06 mcg by Lukes - 0.5 MCG 22:10: mouth Medical capsule 23 daily. [place] metoprolol 2018-02 2020- No 50mg Q.5D Take [address] (LOPRESSOR) 1- 11-04 tablet (50 L ukes - 50 MG 00:00: 23:59 mg total) Medica l tablet 00 :00 by mouth 2 Center (two) times daily. insulin 2018-02 2020- No To use via [facility] lispro - 02- sliding Lukes - (HUMALOG 00:00: 00:00 scale from Ia dical MAURISIOPEN 00 :00 4 to 14 [...] daily. Medical 00 Center epoetin 2019- No [id number] Inject [address] rubina-epbx 7 02- [...] total) Medic al nebulizer 00 :00 by [place] solution nebulizati on every 6 (six) hours. [...] Lipitor Yes John [address] Eprry [facility] - Memoria l Outpati ent Clinics Aspir-Low Aspir-Low Yes John [address] [facility] - Memoria l [facility] Vitamin D-3 Vitamin D-3 Yes John as [facility] directed [facility] - Memoria l [facility] BD Pen BD Pen Yes John USE [facility] Needle Mini Needle Mini [facility] Ferrous Ferrous Yes John TAKE 1 [facility] Sulfate Sulfate Perry TABLET BY Penny es - MOUTH Memoria TWICE A l DAY [facility] Bumetanide Bumetanide Yes John TAKE [address] [facility] [address] [place] TABLET BY Lukes - MOUTH Memoria TWICE A l DAY [facility] Metoprolol Metoprolol Yes John [address] Tartrate Tartrate Perry with food L [facility] ent [facility] Protonix Protonix Yes John [address] [place] mixed with Lukes - apple Memoria juice or l applesauce [facility] Atorvastati Atorvastati Yes John TAKE [address] [facility] n Calcium n Calcium Perry TABLET BY Lukes - MOUTH Memoria EVERY DAY l [facility] Folic Acid Folic Acid Yes John TAKE [address] [facility] [address] Prery TABLET BY Lukes - MOUTH Memoria EVERY DAY l [facility] Calcitriol Calcitriol Yes John TAKE [address] [facility] [place] CAPSULE BY Lukes - MOUTH Memoria EVERY DAY l [facility] Brilinta Brilinta Yes John TAKE [address] [facility] [place] TABLET BY Lukes - MOUTH Memoria TWICE A l DAY [facility] Calcitriol Calcitriol 2019- No John [address] -14 [facility] - 00:00 Memoria :00 [facility] ent [facility] Immunizations Ordered Filled Immunization Date Status Comments [facility] e Immunization Name Name FluAD FluAD 2018-12-[address] [facility] [address] [facility] - 00:00:00 [facility] Vital Signs Vital Name Observation Time Observation Value Comments Source Systolic blood 2019-05-29 14:00:00 101 mm[Hg] [facility] Diastolic blood 2019-05-29 14:00:00 47 mm[Hg] [facility] Heart rate 2019-05-29 14:00:00 75 /min [facility] Respiratory rate 2019-05-29 14:00:00 15 /min [facility] Oxygen saturation in 2019-05-29 14:00:00 95 /min [facility] - Arterial blood by Medical Ce nter Pulse oximetry Body temperature 2019-05-29 10:00:00 36.67 Isrisha [facility] Body weight Measured 2019-05-29 04:00:00 84.8 kg [facility] BMI 2019-05-29 04:00:00 35.32 kg/m2 [facility] Body height 2019-05-27 23:00:00 154.9 cm [facility] Procedures Procedure Date / Time Performing Clinician Source Performed VASCULAR DIAGRAM -SCAN 2019-05-31 12:41:14 Provider, Default [facility] CARDIAC CATH REPORT - SCAN 2019-05-31 10:31:07 Provider, [facility] RHYTHM STRIP - SCAN 2019-05-31 10:31:06 Provider, Default [facility] PERIPHERAL VASCULAR REPORT 2019-05-29 21:10:12 Provider, Default [facility] - - SCAN [facility] POCT-GLUCOSE METER 2019-05-29 13:24:00 Manjula Daya [facility] REPORT OF PROCEDURE - 2019-05-29 12:10:57 Provider, [facility] ENDOSCOPY SCAN [facility] REPORT OF PROCEDURE - 2019-05-29 12:10:55 Provider, [facility] ENDOSCOPY SCAN [facility] PLATELET AGGREGATION: DRUG 2019-05-29 09:27:00 Christian Ríos [facility] POCT-GLUCOSE METER 2019-05-29 07:41:00 Daya Fair kit [facility] B-TYPE NATRIURETIC FACTOR 2019-05-29 04:41:00 Nas Minor [facility] (BNP) [facility] CALCIUM, IONIZED 2019-05-29 04:41:00 Nas Minor [facility] MAGNESIUM 2019-05-29 04:41:00 Nas Minor [facility] PHOSPHORUS 2019-05-29 04:41:00 Nas Minor [facility] CREATINE KINASE (CK) 2019-05-29 04:41:00 Nas Minor [facility] URIC ACID 2019-05-29 04:41:00 Nas Minor [facility] CBC (HEMOGRAM ONLY) 2019-05-29 04:41:00 Radha Mahmood [facility] BASIC METABOLIC PANEL (7) 2019-05-29 04:41:00 Delbert Morales [facility] CBC W/PLT COUNT & AUTO 2019-05-29 04:41:00 Delbert Morales [facility] DIFFERENTIAL [facility] US RENAL COMPLETE 2019-05-29 01:30:00 Nas Minor [facility] POCT-GLUCOSE METER 2019-05-28 21:32:00 ManjulaManuelDaya Hymelbaa [facility] POCT-ACT 2019-05-28 20:28:00 ManjulaManuelDaya Hyunna [facility] URINALYSIS W/ MICROSCOPIC 2019-05-28 18:20:00 Nas Minor [facility] POCT-ACT 2019-05-28 18:08:00 [facility] DOPPLER LEGS 2019-05-28 17:05:00 Delbert [facility] BASIC METABOLIC PANEL (7) 2019-05-28 16:19:00 Christian Ríos [facility] CBC (HEMOGRAM ONLY) 2019-05-28 16:19:00 Christian Ríos [facility] POCT-ACT 2019-05-28 16:17:00 [facility] POCT-ACT 2019-05-28 14:32:00 Peyton [facility] POCT-ACT 2019-05-28 13:45:00 Peyton, [facility] POCT-ACT 2019-05-28 13:34:00 Peyton [facility] L CATH & PCI 2019-05-28 13:10:00 [facility] CREATININE, RANDOM URINE 2019-05-28 12:35:00 [facility] SODIUM, RANDOM URINE 2019-05-28 12:35:00 [facility] PROTEIN, RANDOM URINE 2019-05-28 12:35:00 [facility] POCT-GLUCOSE METER 2019-05-28 12:02:00 [facility] POCT-GLUCOSE METER 2019-05-28 09:31:00 [facility] APTT 2019-05-28 08:11:00 [facility] 2019-05-28 06:37[facility] MET[facility]OLIC PANEL (7) 2019-05-28 06:37:00 Delbert Morales [facility] CBC W/PLT COUNT & AUTO 2019-05-28 06:37:00 Delbert Morales [facility] APTT 2019-05-28 06:02:00 Delbert Morales [facility] TROPONIN I 2019-05-28 04:20:00 [facility] 2019-05-27 23:42:00 Jennifer [facility] PT/APTT 2019-05-27 23:41:00 [facility] W/PLT COUNT & AUTO 2019-05-27 23:41[facility]OL[facility] PANEL (7) 2019-05-27 23:25:00 [facility]OP[facility]IN I 2019-05-27 23:25:00 [facility] B-TYPE NATRIURETIC FACTOR 2019-05-27 23:24[facility] PLATELET COUNT 2019-05-27 23:22:00 Goodnough, [facility] ECG 12-LEAD 2019-05-27 23:14:56 Jennifer [facility] ECG 12-LEAD 2019-05-27 22:06:53 Unknown, Hl7 Doctor [facility] XR CHEST 1 VIEW 2019-05-27 11:05:00 Jennifer [facility]/BEDSIDE [facility] VASCULAR DIAGRAM -SCAN 2019-03-27 14:02:13 Provider, [facility] RHYTHM STRIP - SCAN 2019-03-26 14:31:23 Provider, [facility] VASCULAR DIAGRAM -SCAN 2019-03-26 08:41:44 Provider, [facility] REPORT OF PROCEDURE - 2019-03-26 08:41:40 Provider, [facility] CARDIAC CATH REPORT - SCAN 2019-03-26 08:41:36 Provider, [facility] CARDIAC CATH REPORT - SCAN 2019-03-26 08:41:35 Provider, [facility] RHYTHM STRIP - SCAN 2019-03-26 08:41:22 Provider, [facility] PERIPHERAL VASCULAR REPORT 2019-03-23 21:20:50 Provider, [facility] POCT-GLUCOSE METER 2019-03-23 11:39:00 Berlin Bojorquez [facility] POCT-GLUCOSE METER 2019-03-23 08:22:00 Berlin Bojorquez [facility] COMPREHENSIVE METABOLIC 2019-03-23 05:27:00 Abel Wilburn [facility] CBC W/PLT COUNT & AUTO 2019-03-23 03:36:00 Cosmo [facility] POCT-GLUCOSE METER 2019-03-22 21:57:00 Berlin Bojorquez [facility] ECHOCARDIOGRAM REPORT - 2019-03-22 21:20:52 [facility] CAROTID DOPPLER BILATERAL 2019-03-22 19:42:00 Devaughn Herrera [facility] POCT-GLUCOSE METER 2019-03-22 17:18:00 Berlin Bojorquez [facility] BASIC METABOLIC PANEL (7) 2019-03-22 15:55:00 Jamelcha [facility] CBC (HEMOGRAM ONLY) 2019-03-22 15:55:00 CecilioMelidap [facility] POCT-GLUCOSE METER 2019-03-22 15:00:00 Berlin Bojorquez [facility] 2D ECHO W/ DOPPLER 2019-03-22 14:04:35 Peyton [facility] (CW/PW/COLOR) [facility] POCT-ACT 2019-03-22 10:59:00 Berlin Bojorquez [facility] POCT-ACT 2019-03-22 10:32:00 Berlin Bojorquez [facility] L CATH & PCI 2019-03-22 10:18:00 Peyton [facility] POCT-GLUCOSE METER 2019-03-22 07:33:00 Berlin Bojorquez [facility] APTT 2019-03-22 02:06:00 Peyton [facility] BASIC METABOLIC PANEL (7) 2019-03-22 02:06:00 Berlin Bojorquez [facility] B-TYPE NATRIURETIC FACTOR 2019-03-22 02:06:00 Nas Minor [facility] ([facility]) [facility] CALCIUM, IONIZED 2019-03-22 02:06:00 Nas Minor [facility] MAGNESIUM 2019-03-22 02:06:00 Nas Minor [facility] PHOSPHORUS 2019-03-22 02:06:00 Nas Minor [facility] LIPID PANEL 2019-03-22 02:06:00 Devaughn Herrera [facility] CBC W/PLT COUNT & AUTO 2019-03-22 02:06:00 Nas Minor [facility] I [facility] US ABDOMEN COMPLETE 2019-03-22 00:10:00 Mary BethNely [facility] POCT-GLUCOSE METER 2019-03-21 21:24:00 [facility] 2019-03-21 18:57:00 Berlin Bojorquez [facility] POCT-GLUCOSE METER 2019-03-21 17:26:00 Berlin Bojorquez [facility] ECG 12-LEAD 2019-03-21 17:24:35 Unknown, Hl7 [facility] CT BRAIN WITHOUT IV 2019-03-21 16:58:00 Berlin Bojorquez [facility] TROPONIN I 2019-03-21 15:07:00 Nas Minor [facility] XR SHOULDER LEFT COMPLETE 2019-03-21 14:25:00 Berlin Bojorquez [address] POCT-GLUCOSE METER 2019-03-21 12:58:00 Berlin Bojorquez [facility] REPORT OF PROCEDURE - 2019-03-21 12:27:13 [facility] UPPER ENDOSCOPY 2019-03-21 12:00:00 [facility] Beth[facility] APTT 2019-03-21 10:36:00 Berlin Bojorquez [facility] POCT-GLUCOSE METER 2019-03-21 07:39:00 Berlin Bojorquez [facility] APTT 2019-03-21 03:19:00 Spencer Cortes [facility] BASIC METABOLIC PANEL (7) 2019-03-21 02:23:00 Berlin Bojorquez [facility] CBC (HEMOGRAM ONLY) 2019-03-21 02:22:00 Berlin Bojorquez [facility] POCT-GLUCOSE METER 2019-03-20 21:46:00 Berlin Bojorquez [facility] APTT 2019-03-20 19:09:00 Berlin Bojorquez [facility] POCT-GLUCOSE METER 2019-03-20 18:20:00 Berlin Bojorquez [facility] PROTEIN, RANDOM URINE 2019-03-20 17:57:00 Iván Varghese [facility] CREATININE, RANDOM URINE 2019-03-20 17:57:00 Nas Minor [facility] URINALYSIS W/ MICROSCOPIC 2019-03-20 17:57:00 Nas Minor [facility] XR CHEST 1 VIEW 2019-03-20 15:12:00 Nas Minor [facility] PORTABLE/BEDSIDE [facility] APTT 2019-03-20 12:19:00 Fredrick Gamez [facility] TROPONIN I 2019-03-20 12:19:00 Felton Cardenas [facility] POCT-GLUCOSE METER 2019-03-20 11:45:00 Berlin Bojorquez [facility] POCT-GLUCOSE METER 2019-03-20 07:37:00 Berlin Bojorquez [facility] TROPONIN I 2019-03-20 05:54:00 [facility] BASIC METABOLIC PANEL (7) 2019-03-20 00:43:00 Felton Cardenas [facility] MAGNESIUM 2019-03-20 00:43:00 Felton Cardenas makayla [facility] HEMOGLOBIN A1C 2019-03-20 00:43:00 [facility] 2019-03-20 00:43:00 Felton Cardenas makayla [facility] APTT 2019-03-20 00:43:00 Felton [facility]arden[facility] CBC W/PLT COUNT & AUTO 2019-03-20 00:43:00 Felton Cardenas [facility] ECG 12-LEAD 2019-03-20 00:29:38 Unknown, [facility] RHYTHM STRIP - SCAN 2019-02-06 11:22:14 Provider, Default [facility] REPORT OF PROCEDURE - 2019-02-01 09:00:28 Provider, Default [facility] ENDOSCOPY SCAN [facility] RHYTHM STRIP - SCAN 2019-02-01 09:00:26 Provider, Default [facility] POCT-GLUCOSE METER 2019-01-30 09:05:00 Romain Mendez [facility] ECG 12-LEAD 2019-01-30 06:27:50 Josué Villagomez [facility] BASIC METABOLIC PANEL (7) 2019-01-30 05:56:00 Nas Minor [facility] B-TYPE NATRIURETIC FACTOR 2019-01-30 05:56:00 Nas Minor [facility] (BNP) [facility] CALCIUM, IONIZED 2019-01-30 05:56:00 Nas Minor [facility] MAGNESIUM 2019-01-30 05:56:00 Nas Minor [facility] PHOSPHORUS 2019-01-30 05:56:00 Nas Minor [facility] URIC ACID 2019-01-30 05:56:00 Nas Minor [facility] CBC W/PLT COUNT & AUTO 2019-01-30 05:56:00 Nas Minor [facility] POCT-GLUCOSE METER 2019-01-29 21:09:00 Romain Mendez [facility] POCT-GLUCOSE METER 2019-01-29 17:02:00 Romain Mendez [facility] SODIUM, RANDOM URINE 2019-01-29 14:24:00 Delbert Barron [facility] CREATININE, RANDOM URINE 2019-01-29 14:24:00 Delbert Barron [facility] URINALYSIS W/ MICROSCOPIC 2019-01-29 14:24:00 Delbert Barron [facility] PROTEIN, RANDOM URINE 2019-01-29 14:24:00 Nas Minor [facility] BASIC METABOLIC PANEL (7) 2019-01-29 13:24:00 Nas Minor [facility] MAGNESIUM 2019-01-29 13:24:00 Nas Minor [facility] PHOSPHORUS 2019-01-29 13:24:00 Nas Minor [facility] XR CHEST 1 VIEW 2019-01-29 13:14:00 Nas Minor [facility] PORTABLE/BEDSIDE Medical [place] POCT-GLUCOSE METER 2019-01-29 11:38:00 Nealice [facility] POCT-GLUCOSE METER 2019-01-29 07:45:00 Nealice [facility] ECG 12-LEAD 2019-01-29 06:42:02 Unknown, Hl7 [facility] CBC (HEMOGRAM ONLY) 2019-01-29 05:04:00 Dahlia [facility] POCT-GLUCOSE METER 2019-01-28 21:56:00 Andrea [facility] ECHOCARDIOGRAM REPORT - 2019-01-28 21:21:26 Provider, Default [facility] C. DIFFICILE GDH TOXIN 2019-01-28 18:41:00 [facility], STOOL 2019-01-28 18:40:00 [facility] POCT-GLUCOSE METER 2019-01-28 11:46[facility]00 [facility] E[facility] W/ DOPPLER 2019-01-28 11:25:00 Dahlia [facility] (CW/PW/COLOR) [facility] APTT 2019-01-28 08:48:00 [facility] POCT-GLUCOSE METER 2019-01-28 08:28:00 Manuelwhite hospitalheidi [facility] CBC (HEMOGRAM ONLY) 2019-01-28 04:28:00 [facility] BASIC METABOLIC PANEL (7) 2019-01-28 04:28:00 Christian Ríos [facility] APTT 2019-01-28 04:28:00 Dahlia, [facility] POCT-GLUCOSE METER 2019-01-27 22:00:00 Bandeli [facility] APTT 2019-01-27 21:12:00 [facility] POCT-GLUCOSE METER 2019-01-27 17:39:00 Bandeli [facility] PT/APTT 2019-01-27 16:27:00 Bandealheidi [facility] PT/APTT 2019-01-27 12:58:[facility] PO[facility]SE [facility]ER 2019-01-27 12:35:00 Bandla [facility] POCT-GLUCOSE METER 2019-01-27 09:31:00 [facility] 12-LEAD 2019-01-27 07:06:37 Dahlia [facility] APTT 2019-01-27 05:55:00 Dahlia [facility] POCT-GLUCOSE METER 2019-01-27 03:52:00 [facility] CBC (HEMOGRAM ONLY) 2019-01-27 03:47:00 [facility] 2019-01-27 03:47:00 [facility] BASIC METABOLIC PANEL (7) 2019-01-27 03:47:00 Saadia Anders [facility] POCT-GLUCOSE METER 2019-01-26 21:23:00 [facility] PLATELET COUNT 2019-01-26 18:42:00 Saadia Anders [facility] APTT 2019-01-26 18:42:00 Saadia Anders [facility] POCT-GLUCOSE METER 2019-01-26 13:34:00 Ye [facility] POCT-GLUCOSE METER 2019-01-26 08:21:00 Michell [facility] ECG 12-LEAD 2019-01-26 08:12:06 Dahlia [facility] POCT-GLUCOSE METER 2019-01-26 05:42:00 [facility] LIPOPROTEIN (A) 2019-01-26 05:34:00 Dahlia [facility] TROPONIN I 2019-01-26 05:34:00 [facility] CBC (HEMOGRAM ONLY) 2019-01-26 05:34:00 Dahlia [facility] XR CHEST 1 VIEW 2019-01-25 23:56:00 Dahlia [facility]ED[facility]IDE [facility] MAGNESIUM 2019-01-25 23:19:00 Dahlia [facility] COMPREHENSIVE METABOLIC 2019-01-25 23:19:00 Dahlia [facility] TROPONIN I 2019-01-25 23:19:00 [facility] B-TYPE NATRIURETIC FACTOR 2019-01-25 23:19:00 Dahlia [facility] (BNP) [facility] PROTHROMBIN TIME/INR 2019-01-25 23:19:00 [facility] APTT 2019-01-25 23:19:00 Dahlia [facility] CBC W/PLT COUNT & AUTO 2019-01-25 23:19:00 Dahlia [facility] ECG 12-LEAD 2019-01-25 22:51:27 Dahlia [facility] POCT-GLUCOSE METER 2019-01-25 22:10:00 [facility] - SCAN 2019-01-01 11:34:32 Provider, Default [facility] REPORT OF PROCEDURE - 2018-12-27 07:06:43 Provider, Default [facility] ENDOSCOPY SCAN Scanning [facility] CARDIAC CATH REPORT - SCAN 2018-12-27 07:06:36 Provider, Default [facility] RHYTHM STRIP - SCAN 2018-12-27 07:06:27 Provider, Default [facility] POCT-GLUCOSE METER 2018-12-25 11:53:00 Puneet Snider [facility] POCT-GLUCOSE METER 2018-12-25 06:53:00 Puneet Snider [facility] CALCIUM, IONIZED 2018-12-25 04:14:00 Nas Minor [facility] BASIC METABOLIC PANEL (7) 2018-12-25 04:13:00 Nas Minor [facility] B-TYPE NATRIURETIC FACTOR 2018-12-25 04:13:00 Nas Minor [facility] (BNP) [facility] MAGNESIUM 2018-12-25 04:13:00 Nas Minor [facility] PHOSPHORUS 2018-12-25 04:13:00 Nas Minor [facility] CBC W/PLT COUNT & AUTO 2018-12-25 04:13:00 Nas Minor [facility] I [facility] POCT-GLUCOSE METER 2018-12-24 22:48:00 Paul Puneet [facility] POCT-ACT 2018-12-24 22:03:00 Paul Puneet [facility] POCT-GLUCOSE METER 2018-12-24 20:12:00 Puneet Snider [facility] POCT-ACT 2018-12-24 17:18:00 Paul Puneet [facility] POCT-ACT 2018-12-24 16:51:00 Paul Puneet [facility] L CATH & PCI 2018-12-24 14:49:00 Spencer Cortes [facility] POCT-GLUCOSE METER 2018-12-24 12:46:00 Paul Puneet [facility] POCT-GLUCOSE METER 2018-12-24 08:25:00 Paul Puneet [facility] APTT 2018-12-24 08:24:00 Paul [facility] COMPREHENSIVE METABOLIC 2018-12-24 01:13:00 Cosmo [facility] APTT 2018-12-24 01:13:00 Andrew [facility] ECG 12-LEAD 2018-12-23 22:36:24 Unknown, Hl7 [facility] POCT-GLUCOSE METER 2018-12-23 17:53:00 Paul [facility] APTT 2018-12-23 16:08:00 Andrew [facility] POCT-GLUCOSE METER 2018-12-23 12:58:00 Paul [facility] POCT-GLUCOSE METER 2018-12-23 08:40:00 Paul [facility] CALCIUM, IONIZED 2018-12-23 05:20:00 Cosmo [facility] COMPREHENSIVE METABOLIC 2018-12-23 05:20:00 Cosmo [facility] MAGNESIUM 2018-12-23 05:20[facility] 2018-12-23 05:20:00 [facility] B-TYPE NATRIURETIC FACTOR 2018-12-23 05:20:00 [facility] APTT 2018-12-23 05:20:00 Andrew [facility] TROPONIN I 2018-12-23 05:20:00 Andrew [facility] CBC W/PLT COUNT & AUTO 2018-12-23 05:20:00 [facility] ECG 12-LEAD 2018-12-23 04:44:34 Unknown, Hl7 [facility] POCT-GLUCOSE METER 2018-12-22 21:03:00 Paul [facility] APTT 2018-12-22 19:53:00 Andrew [facility] POCT-GLUCOSE METER 2018-12-22 17:20:00 Puneet Snider [facility] APTT 2018-12-22 12:55:00 Delbert Morales [facility] POCT-GLUCOSE METER 2018-12-22 12:53:00 Puneet Snider [facility] POCT-GLUCOSE METER 2018-12-22 08:25:00 Puneet Snider [facility] B-TYPE NATRIURETIC FACTOR 2018-12-22 04:53:00 Iván [facility] (BNP) [facility] CALCIUM, IONIZED 2018-12-22 04:53:00 [facility], TIBC, % SAT. 2018-12-22 04:53:00 [facility] 2018-12-22 04:53:00 [facility]UM 2018-12-22 04:52:00 [facility] 2018-12-22 04:52:00 Iván [facility] COMPREHENSIVE METABOLIC 2018-12-22 04:52:00 [facility] RETICULOCYTE COUNT 2018-12-22 04:52:00 [facility] HEMOGLOBIN A1C 2018-12-22 04:52:00 Spencer Cortes [facility] TROPONIN I 2018-12-22 04:52:00 Saadia Anders [facility] APTT 2018-12-22 04:52:00 Delbert Morales [facility] CBC W/PLT COUNT & AUTO 2018-12-22 04:52:00 Abel Wilburn [facility] POCT-GLUCOSE METER 2018-12-21 21:54:00 Puneet Snider [facility] ECHOCARDIOGRAM REPORT - 2018-12-21 21:21:27 Provider, Default I [facility] APTT 2018-12-21 20:04:00 Delbert Morales [facility] US RENAL COMPLETE 2018-12-21 19:58:00 Nas Minor [facility] POCT-GLUCOSE METER 2018-12-21 17:28:00 Puneet Snider [facility] APTT 2018-12-21 13:55:00 Delbert Morales [facility] CREATININE, RANDOM URINE 2018-12-21 13:08:00 [facility] PROTEIN, RANDOM URINE 2018-12-21 13:08:00 Iván [facility] SODIUM, RANDOM URINE 2018-12-21 13:08:00 [facility] URINALYSIS W/ MICROSCOPIC 2018-12-21 13:08:00 Nas Minor [facility] TROPONIN I 2018-12-21 11:48:00 Delbert Morales [facility] 2D ECHO W/ DOPPLER 2018-12-21 10:22:55 Spencer Cortes [facility] (CW/PW/COLOR) [facility] POCT-GLUCOSE METER 2018-12-21 09:59:00 [facility] PT/APTT 2018-12-21 07:39:00 Papito Augustine [facility] APTT 2018-12-21 04:00:00 Delbert Morales [facility] CBC (HEMOGRAM ONLY) 2018-12-21 04:00:00 Delbert Morales [facility] BASIC METABOLIC PANEL (7) 2018-12-21 04:00:00 Delbert Morales [facility] TROPONIN I 2018-12-21 04:00:00 Delbert Morales [facility] TROPONIN I 2018-12-21 00:32:00 Delbert Morales [facility] POCT-GLUCOSE METER 2018-12-21 00:29:00 Lorraine [facility] XR CHEST 1 VIEW 2018-12-20 20:38:00 Papito Augustine [facility]/BEDSIDE [facility] COMPREHENSIVE METABOLIC 2018-12-20 20:33:00 Papito Augustine [facility] TROPONIN I 2018-12-20 20:33:00 Papito Augustine [facility] B-TYPE NATRIURETIC FACTOR 2018-12-20 20:33:00 UplandPapito foley [facility] (BNP) [facility] PT/APTT 2018-12-20 20:33:00 Papito Augustine [facility] MAGNESIUM 2018-12-20 20:33:00 LorrainePapito foley [facility] CBC W/PLT COUNT & AUTO 2018-12-20 20:33:00 LorrainePapito [facility] CRITICAL CARE 2018-12-20 20:19:22 Lorraine [facility] ECG 12-LEAD 2018-12-20 20:04:52 Lorraine [facility] VASCULAR DIAGRAM -SCAN 2018-11-22 12:20:29 Provider, Default [facility] PERMANENT LAB REPORT - 2018-11-14 12:32:13 Provider, [facility] RHYTHM STRIP - SCAN 2018-11-14 12:32:10 Provider, [facility] REPORT OF PROCEDURE - 2018-11-14 12:32:08 Provider, Default [facility] ENDOSCOPY [facility] CARDIAC CATH REPORT - SCAN 2018-11-14 12:32:03 Provider, Default [facility] POCT-GLUCOSE METER 2018-11-13 11:50:00 [facility] POCT-GLUCOSE METER 2018-11-13 09:10:00 Peyton [facility] POCT-GLUCOSE METER 2018-11-13 06:48:00 Peyton [facility] URINALYSIS W/ MICROSCOPIC 2018-11-13 01:25:00 Nas Minor [facility] MAGNESIUM 2018-11-13 01:01:00 Daya Fair [facility] B-TYPE NATRIURETIC FACTOR 2018-11-13 01:01:[address] [facility] (BNP) [facility] PHOSPHORUS 2018-11-13 01:01:00 Nas Minor [facility] CALCIUM, IONIZED 2018-11-13 01:01:00 Cosmo [facility] COMPREHENSIVE METABOLIC 2018-11-13 01:01:00 [facility] W/[facility]T COUNT & AUTO 2018-11-13 01:01:00 Cosmo [facility] POCT-ACT 2018-11-13 00:40:00 Peyton, [facility] POCT-ACT 2018-11-12 23:27:00 Peyton [facility] POCT-GLUCOSE METER 2018-11-12 21:31:00 [facility] POCT-ACT 2018-11-12 21:29:00 [facility] POCT-ACT 2018-11-12 17:50:00 [facility] POCT-ACT 2018-11-12 16:49:00 [facility] POCT-ACT 2018-11-12 16:11:00 [facility] L CATH & PCI 2018-11-12 15:58:00 [facility] C. DIFFICILE GDH TOXIN 2018-11-12 14:14:[address] [facility] NM CARDIAC PET PERFUSION 2018-11-12 12:09:00 Peyton [facility] - REST AND/OR STRESS Medical Cente r TREADMILL 2018-11-12 12:06:27 Unknown, Hl7 Doctor YOLY Alejandro [facility](NON-NUCLEAR Medical Ce nter TREADMILL) ECG 12-LEAD 2018-11-12 10:01:02 Unknown, Hl7 Doctor YOLY Alejandro [facility] APTT 2018-11-12 10:01:00 Peyton [facility] POCT-GLUCOSE METER 2018-11-12 08:34:00 Peyton [facility] LIPID PANEL 2018-11-12 04:18:00 Manjula [facility] HEMOGLOBIN A1C 2018-11-12 04:18:00 Manjula [facility] MAGNESIUM 2018-11-12 04:18:00 Manujla [facility] CALCIUM, IONIZED 2018-11-12 04:18:00 Cosmo [facility] COMPREHENSIVE METABOLIC 2018-11-12 04:18:00 [facility] 2018-11-12 04:18:00 Wilburn [facility] APTT 2018-11-12 04:18:00 Peyton [facility] CBC W/PLT COUNT & AUTO 2018-11-12 04:18:00 [facility] APTT 2018-11-11 22:02:00 [facility] ECHOCARDIOGRAM REPORT - 2018-11-11 21:20:37 Provider, Default [facility] POCT-GLUCOSE METER 2018-11-11 17:08:00 Peyton [facility] APTT 2018-11-11 15:24:00 [facility] 2D ECHO W/ DOPPLER 2018-11-11 13:14:57 Delbert Bentley [facility] (CW/PW/COLOR) [facility] POCT-GLUCOSE METER 2018-11-11 12:39:00 Peyton [facility] POCT-GLUCOSE METER 2018-11-11 08:53:00 [facility] TROPONIN I 2018-11-11 08:24:00 Dariana [facility] XR CHEST 1 VIEW 2018-11-11 08:05:00 Delbert Bentley [facility] es - PORTABLE/BEDSIDE [facility] BASIC METABOLIC PANEL (7) 2018-11-11 00:39:00 [facility] HEPATIC FUNCTION PANEL 2018-11-11 00:39:00 [facility] MAGNESIUM 2018-11-11 00:39:00 [facility] TSH/FREE T4 IF INDICATED 2018-11-11 00:39:00 Delbert Bentley [facility] TROPONIN I 2018-11-11 00:39:00 [facility] B-TYPE NATRIURETIC FACTOR 2018-11-11 00:39:00 [facility] (BNP) [facility] PT/APTT 2018-11-11 00:39:00 Spencer Cortes [facility] CBC W/PLT COUNT & AUTO 2018-11-11 00:39:00 [facility] ECG 12-LEAD 2018-11-11 00:12:37 Unknown, Hl7 [facility] Encounters Start End Encounter Admission Attending Care Care Encounter Source Date/Time Date/Time Type Type Clinicians Facility Department ID 2019-09-12 2019-09-12 Telephone RICCI Mooyd [id number] 00:00:00 00:00:00 Clarisse ESTRELLAY [id number] [place] [id number] 2019-09-12 2019-09-12 Letter RICCI Moody [id number] 00:00:00 00:00:00 (Out) Clarisse ESTRELLAY [id number] [place] [id number] 2019-09-09 2019-09-09 Trauma Doctor Jovanni Lerner [facility] [id number] 12:37:08 12:52:08 Visit Lab Main Swathi [id number] [place] [id number] Professio [id number] [address] 2019-09-09 2019-09-09 [facility] [id number] 09:07:00 09:07:00 t [facility] [address] [facility] [address] [facility] Medicine Outpati ent Clinics 2019-08-09 2019-08-09 [facility] [id number] 14:57:00 14:57:00 t [employer] [facility] Medicine l Medicine Outpati ent Clinics 2019-07-31 2019-07-31 [facility] [id number] 10:40:00 10:40:00 t [employer] [facility] Medicine l Medicine Outpati ent Clinics 2019-07-10 2019-07-10 [facility] [id number] 14:25:00 14:25:00 t [facility]365[employer] [facility] [address] [facility] l Medicine Outpati ent Clinics 2019-06-28 2019-06-28 [facility] [id number] 10:34:00 10:34:00 t [employer] [facility] Medicine Outpati ent Clinics 2019-06-17 2019-06-17 [facility] [id number] 15:21:00 15:21:00 t [employer] [facility] l Medicine Outpati ent Clinics 2019 2019 [facility] [id number] 13:30:00 13:30:00 t [employer] [facility] l Medicine Outpati ent Clinics 2019-05-31 2019-05-31 [facility] [id number] 16:05:00 16:05:00 t [employer] [facility] Medicine l Medicine Outpati ent Clinics 2019-05-30 2019-05-30 [facility] [id number] 11:58:00 11:58:00 t [employer] [facility] l Medicine Outpati ent Clinics 2019-05-17 2019-05-17 [facility] [id number] 14:51:00 14:51:00 t [employer] [facility] Medicine l Medicine Outpati ent Clinics 2019-04-18 2019-04-18 [facility] [id number] 08:45:00 08:45:00 t [place] [employer] [facility] Medicine l Medicine Outpati ent Clinics 2019-04-11 2019-04-11 [facility] [id number] 08:26:00 08:26:00 t [place] [employer] [place] [employer] - Drive [facility] Medicine l Medicine Outpati ent Clinics 2019-03-26 2019-03-26 [facility] [id number] 10:15:00 10:15:00 t [place] [employer] [place] [employer] [facility] Medicine l Medicine Outpati ent Clinics 2019-03-21 2019-03-21 [facility] [id number] 09:50:00 09:50:00 t [place] [employer] [facility] l Medicine Outpati ent Clinics 2019-03-18 2019-03-18 [facility] [id number] 13:29:00 13:29:00 t [place] [employer] [place] [employer] [facility] l Medicine Outpati ent Clinics 2019-02-11 2019-02-11 [facility] [id number] 13:30:00 13:30:00 t [place] [employer] [facility] Medicine l Medicine Outpati ent Clinics 2019-01-23 2019-01-23 [facility] [id number] 10:15:00 10:15:00 t [place] [employer] [facility] Medicine l Medicine Outpati ent Clinics 2019-01-21 2019-01-21 [facility] [id number] 13:25:00 13:25:00 t [place] [employer] [place] [employer] [facility] Medicine l Medicine Outpati ent Clinics 2018-12-24 2018-12-24 [facility] [id number] 14:34:00 14:34:00 t [place] [employer] s - Drive [facility] l Medicine Outpati ent Clinics 2018-12-21 2018-12-21 [facility] [id number] 14:44:00 14:44:00 t [place] [employer] [place] [employer] - Drive [facility] Medicine l Medicine Outpati ent Clinics 2018-12-19 2018-12-19 [facility] [id number] 17:03:00 17:03:00 t [place] [employer] s - Drive [facility] Medicine Medicine Outpati ent Clinics 2018-12-03 2018-12-03 [facility] [id number] 14:00:00 14:00:00 t [place] [employer] [place] [employer] - Drive [facility] l Medicine Outpati ent Clinics 2018-11-26 2018-11-26 [facility] [id number] 13:30:00 13:30:00 t [place] [employer] - Drive [facility] l Medicine Outpati ent Clinics 2018-10-16 2018-10-16 [facility] [id number] 11:15:00 11:15:00 t Specialty/U Amalia kes - Specialty rology Memori a /Urology Clinic l Clinic Outpati ent Clinics 2018-10-08 2018-10-08 [facility] [id number] 15:33:00 15:33:00 t [place] [employer] - Drive [facility] Medicine Outpati ent Clinics 2018-10-08 2018-10-08 [facility] [id number] 14:00:00 14:00:00 t [place] [employer] s - Drive [facility] Medicine Outpati ent Clinics 2018-10-08 2018-10-08 [facility] [id number] 14:00:00 14:00:00 t Specialty/U Amalia kes - Specialty rology Memori a /Urology Clinic l Clinic Outpati ent Clinics 2018-09-17 2018-09-17 [facility] [id number] 10:32:00 10:32:00 t [place] [employer] s - Drive [facility] l Medicine Outpati ent Clinics 2018-09-06 2018-09-06 [facility] [id number] 13:30:00 13:30:00 t [place] [employer] s - Drive [facility] Medicine Outpati ent Clinics 2018-09-04 2018-09-04 [facility] [id number] 14:45:00 14:45:00 t [place] [employer] s - Drive [facility] Medicine Medicine Outpati ent Clinics 2018-08-07 2018-08-07 [facility] [id number] 08:25:00 08:25:00 t [place] [employer] s - Drive [facility] Medicine Outpati ent Clinics 2018-06-26 2018-06-26 [facility] [id number] 10:41:00 10:41:00 t [place] [employer] s - Drive [facility] Medicine Outpati ent Clinics 2018-06-12 2018-06-12 [facility] [id number] [facility] 10:30:00 10:30:00 t [place] [employer] s - Drive [facility] Medicine Outpati ent Clinics 2018 2018 [facility] [id number] 11:54:00 11:54:00 t [place] [employer] - Drive [facility] Medicine Outpati ent Clinics 2018-03-14 2018-03-14 [facility] [id number] 15:00:00 15:00:00 t [place] [employer] [facility] Medicine Outpati ent Clinics 2018-02-21 2018-02-21 [facility] [id number] 13:15:00 13:15:00 t Specialty/U Amalia kes - Specialty rology Memori a /Urology Clinic l Clinic Outpati ent Clinics 2018-02-21 2018-02-21 [facility] [id number] 09:57:00 09:57:00 t [place] [employer] - Drive [facility] Medicine Medicine Outpati ent Clinics 2018-02-21 2018-02-21 [facility] [id number] 09:30:00 09:30:00 t Specialty/U Amalia kes - Specialty rology Memori a /Urology Clinic l Clinic Outpati ent Clinics 2018-02-21 2018-02-21 [facility] [id number] 08:32:00 08:32:00 t [place] [employer] s - Drive [facility] Medicine Outpati ent Clinics 2017-12-06 2017-12-06 [facility] [id number] 14:30:00 14:30:00 t [facility] Clinics 2017-11-29 2017-11-29 [facility] [id number] 09:30:00 09:30:00 t [facility] ent Clinics 2017-11-01 2017-11-01 [facility] [id number] 15:00:00 15:00:00 t [facility] ent Clinics 2017-11-01 2017-11-01 [facility] [id number] 14:19:00 14:19:00 t [place] [employer] Luke s - Drive [facility] 2017-11-01 2017-11-01 Outpatient zzzAmy zzzKamala [id number] [facility] 14:02:00 14:02:00 Alex Johnson [facility] DO [facility] 2017-09-06 2017-09-06 [facility] [id number] 10:30:00 10:30:00 [address] [place] [address] Luke s - Drive [facility] Medicine Medicine [facility] 2017-07-12 2017-07-12 [facility] [id number] 11:48:00 11:48:00 [address] [place] [address] Luke s - Drive [facility] Medicine Outpati ent Clinics 2017-07-03 2017-07-03 [facility] [id number] 10:15:00 10:15:00 [address] [place] [address] Luke s - Drive [facility] 2017-06-08 2017-06-08 [facility] [id number] 12:16:00 12:16:00 [address] [place] [address] Luke s - Drive [facility] Outpati ent Clinics 2017-05-16 2017-05-16 [facility] [id number] 11:00:00 11:00:00 t Specialty/U Amalia kes - Specialty rology [facility] a /Urology Clinic l Clinic Outpati ent Clinics 2017-05-08 2017-05-08 Outpatient Nathan Evanst [id number] [facility] 10:45:00 10:45:00 t [employer] Luke s - Drive [facility] l [facility] Results Test Description Test Time Test Comments Results Result Comments Source Platelet Aggregation: Drug Effect 2019-05-29 16:27:00 Test Item Value Reference Range Interpretation Comme nts Arachadonic Acid (test code = 13 % 63-89 L 5993-1) Interpretation (test code = [place] [address]-2) arachidonic acid suggests aspirin-like effect.Decreased aggregation with ADP which indicates platelet dysfunction that may be due to medication effect, uremia, or other platelet function disorders. Clinical correlation is required. Pathologist: (test code = 2621) Talia Villarreal MD (electronic signature) Platelets (test code = 2656) 184 150- 450 K/CU MM ADP (test code = 62498-7) 11 % 62-100 L Platelet Rich Plasma (test code = 243 200- 300 k/cu mm 2134) KAREN (test code = KAREN) Platelet function studies by aggregation methodology on samples with platelet count <75,000/CU MM are unreliable; platelet function assessment should not be based on a single test.Sonography Technician ID - [id number] Lab Interpretation (test code = Abnormal 45177-2) [facility] Center[facility]ATELET AGGREGATION: DRUG [id number] 16:27:00 Test Item Value Reference Range Interpretation Comments ARACHADONIC ACID 13 % 63-89 L RESULT(BEAKER) (test code = 2138) PLATELET AGG DRUG Decreased response to INTERPRETATION (BEAKER) arachidonic acid (test code = 2408) suggests aspirin-like effect. PLATELET AGG DRUG Decreased aggregation INTERPRETATION (BEAKER) with ADP which (test code = 878061) indicates platelet dysfunction that may be due to medication effect, uremia, or other platelet function disorders. Clinical correlation is required. [id number] Talia Villarreal, (BEAKER) (test code = (electronic 2621) signature) PLATELET COUNT AGG 184 K/CU MM 150-450 (BEAKER) (test code = 2656) PLATELET RICH 243 k/cu mm 200-300 PLASMA(CRISTY) (test code = 2134) Platelet function studies by aggregation methodology on samples with platelet count <75,000/CU MMare unreliable; platelet function assessment should not be based on a single test.Sonography Technician ID - [id number]-Glucose vscsd5669-13-56 13:37:00 Test Item Value Reference Range Interpretation Comments POC-Glucose Meter (test 298 mg/dL 70-110 H : No tified RN/MD: code = 1538) TESTED AT [facility] [address] [facility], [address]: Sonography Technician/Techni rebeca ID = [id number] for LIZ WATSON Lab Interpretation (test Abnormal code = 92102-7) [facility] CenterPOOR-GLUCOSE [id number] 13:37:00 Test Item Value Reference Range Interpretation Comments POC-GLUCOSE METER 298 mg/dL 70-110 H : Notified RN/: (CRISTY) (test code = TESTED AT [facility] [address] 1538) [facility], [address]: Sonography Technician/Techni rebeca ID = [id number] for LIZ PRIEST Venous doppler legs [id number] 08:20:35Ejection FractionSLEH ECHO HEARTLAB MKCKESSON CPACSRight Impression1. [...] Study 05/28/2019 DARCIOBDEO Age 78 Visit Number [id number] Gender Female Accession Number [id number] Date of 1940 Referring Peyton Choe Room Number 6218 Physician Print Buyer Sly Shelby [facility] Interpreting Brandi Camara Physician ProcedureType of [...] cm/s ; Diameters are [facility] POCT-GLUCOSE [id number] 07:54:00 Test Item Value Reference Range Interpretation Comments POC-GLUCOSE METER 270 mg/dL 70-110 H : TESTED A T [facility] [address] (BEAKER) (test code = [place], 1538) [address]: Sonography Technician/Techni rebeca ID = [id number] for BE LL, BEAULA Calcium, Btacdak2795-97-03 05:34:00 Test Item Value Reference Range Interpretation Comments Calcium, Ion (test code = 1993-) 1.16 mmol/L 1.12-1.27 pH, Blood (test code = 65028-4) 7.40 [facility] HospitalCALCIUM, [id number] 05:34:00 Test Item Value Reference Range Interpretation Comments CALCIUM IONIZED (BEAKER) (test 1.16 mmol/L 1.12-1.27 code = 698) PH, BLOOD (BEAKER) (test code = 7.40 1810) Basic metabolic [id number] 05:20:00 Test Item Value Reference Range Interpretation [...] Calcium (test code = 9.1 mg/dL 8.4-10.2 99080-5) EGFR (test code = 13 mL/min/1.73 [place] [address]-8) NOT ACCURATE CREATININE CLEARANCE IN PREDICTING GLOMERULAR FILTRATION RATE . ESTIMATED GFR I S NOT APPLICABLE FOR DIALYSIS PATIENTS. KAREN (test code = KAREN) Sonography Technician ID - MELI M Lab Interpretation Abnormal (test code = 47573-7) [facility] CenterCreatine Kinase (CK)2019-05-29 05:20:00 Test Item Value Reference Range Interpretation Comments Total CK (test code = 94 U/L 29-200 2157-6) KAREN (test code = KAREN) Sonography Technician ID - MELI M Lab Interpretation (test Normal code = 00707-5) [facility] CenterMagnesium2020-04-08 05:20:00 Test Item Value Reference Range Interpretation Comments Magnesium (test code = 2.1 mg/dL 1.6-2.6 35431-9) KAREN (test code = KAREN) Sonography Technician ID - [facility] Lab Interpretation (test Normal code = 21561-3) [facility] CenterB-type Natriuretic Factor (BNP)2019-05-29 05:20:00 Test Item Value Reference Range Interpretation Comments BNP (test code = 70868-9) 1228 pg/mL 0-100 H KAREN (test code = KAREN) Sonography Technician ID - MELI Lab Interpretation (test Abnormal code = 63247-2) [facility] CenterPhosphorus2020-04-08 05:20:00 Test Item Value Reference Range Interpretation Comments Phosphorus (test code = 3.7 mg/dL 2.3-4.7 2777-1) KAREN (test code = KAREN) Sonography Technician ID - MELI Lab Interpretation (test Normal code = 35858-1) [facility] CenterUric [id number] 05:20:00 Test Item Value Reference Range Interpretation Comments Uric Acid (test code = 9.0 mg/dL 2.6-7.2 H 3084-1) KAREN (test code = KAREN) Sonography Technician ID - MELI Lab Interpretation (test Abnormal code = 99366-4) [facility] CenterURIC [id number] 05:20:00 Test Item Value Reference Range Interpretation Comments URIC ACID (BEAKER) (test code = 9.0 mg/dL 2.6-7.2 H 773) Sonography Technician ID - MELI KVZLFURAYE4145-91-29 05:20:00 Test Item Value Reference Range Interpretation Comments MAGNESIUM (BEAKER) (test code = 2.1 mg/dL 1.6-2.6 627) Sonography Technician ID - MELI LETGORIFPEF0848-47-29 05:20:00 Test Item Value Reference Range Interpretation Comments PHOSPHORUS (BEAKER) (test code = 3.7 mg/dL 2.3-4.7 604) Sonography Technician ID - MELI MCREATINE KINASE (CK)2019-05-29 05:20:00 Test Item Value Reference Range Interpretation Comments CREATINE KINASE TOTAL (BEAKER) (test 94 U/L 29-200 code = 380) Sonography Technician ID - MELI MB-TYPE NATRIURETIC FACTOR (BNP)2019-05-29 05:20:00 Test Item Value Reference Range Interpretation Comments B-TYPE NATRIURETIC PEPTIDE 1228 pg/mL 0-100 H (BEAKER) (test code = 700) Sonography Technician ID - MELI MBASIC METABOLIC [id number] 05:20:00 Test Item Value Reference Range Interpretation [...] S NOT APPLICABLE FOR DIALYSIS PATIEN TS. Sonography Technician ID - MELI MCBC (hemogram only)2019-05-29 04:59:00 [...] 450 K/CU MM MPV (test code = 54474-6) 9.9 fL 9.4-12.3 nRBC (test code = 413) 0 0- 0 /100 WBC Lab Interpretation (test code = Abnormal 66927-6) [facility] with platelet count + automated [id number] 04:59:00 Test Item Value Reference Range Interpretation [...] 450 K/CU MM MPV (test code = 44638-6) 9.9 fL 9.4-12.3 nRBC (test code = [...] 2801) Lab Interpretation (test code = Abnormal 62968-2) [facility] W/PLT COUNT & AUTO [id number] 04:59:00 Test Item Value Reference Range Interpretation [...] (BEAKER) (test code = 413) U/S, RENAL, [id number] 03:58:00Reason for exam:->AKIShould this be performed at [...] [place] Verified Date/Time: 05/29/2019 03:58:20 US renal xrasmmcr4713-18-19 03:58:00Interface, External Ris In - 05/29/2019 4:00 [...] size. Signed: Ochoa FryeportVerified Date/Time: 05/29/2019 03:58:20 [facility] [id number] 21:44:00 Test Item Value Reference Range Interpretation Comments POC-GLUCOSE METER 230 mg/dL 70-110 H : TESTED A T [facility] [address] (BEAKER) ([facility] = [facility] [address]: Sonography Technician/Techni rebeca ID = [id number] for DARIAN SWEENEY POC ACTIVATED CLOTTING [id number] 20:46:00 Test Item Value Reference Range Interpretation Comments Activated Clotting Time 136 sec : 74 -137 seconds, (test code = 441) Baseline: TESTED AT [address], [address]: Sonography Technician/Techni rebeca ID = [id number] for DARIAN SWEENEY [facility] HospitalPOCT-[id number] 20:46:00 Test Item Value Reference Range Interpretation Comments ACTIVATED CLOTTING TIME 136 sec : 74 -137 seconds, (BEAKER) (test code = Baseli ne: TESTED AT [facility]) [facility] [address] [facility], [address]: Sonography Technician/Techni rebeca ID = [id number] for DARIAN SWEENEY Urinalysis w/Xzkujrggrnr5800-90-60 18:58:00 Test Item Value Reference Range Interpretation Comments Color, UA (test code = Light Yellow 5778-6) Clarity, UA (test code = Clear 5767-9) Specific [place], UA (test 1.012 1.001-1.035 code = 5811-5) pH, UA (test code = 6.0 5.0-8.0 5803-2) Protein, UA (test code = 20 mg/dL Negative A 77819-7) Glucose, UA (test code = 150 mg/dL Negative A 365) Ketones, UA (test code = Negative Negative 2514-8) Bilirubin, UA (test code = Negative Negative 15220-5) Blood, UA (test code = Trace Negative A 72824-7) Nitrite, UA (test code = Negative Negative 5802-4) Leukocytes, UA (test code Negative Negative = 5799-2) Urobilinogen, UA (test 0.2 mg/dL 0.2-1 code = 43209-1) RBC, UA (test code = 1 /HPF 05792-7) WBC, UA (test code = <1 /HPF 5821-4) Bacteria, UA (test code = Many 52401-8) Specimen Source (test code = 2795) KAREN (test code = KAREN) Sonography Technician ID - [auto]Sonography Technician ID - ny Lab Interpretation (test Abnormal code = 77287-5) [facility] CenterURINALYSIS W/ [id number] 18:58:00 Test Item Value Reference Range Interpretation [...] Many 517) SOURCE(BEAKER) (test code = 2795) Sonography Technician ID - [auto]Sonography Technician ID - eygtZFNX-KQM7493-71-07 18:35:00 Test Item Value Reference Range Interpretation Comments ACTIVATED CLOTTING TIME 164 sec : 74 -137 seconds, (BEAKER) (test code = Baseli ne: TESTED AT 441) [facility] [address] [place], [address]: Sonography Technician/Techni rebeca ID = [id number] for SHONDA HENDRICKS BASIC METABOLIC [id number] 16:41:00 Test Item Value Reference Range Interpretation [...] 697) EGFR (BEAKER) (test 13 mL/min/1.73 ESTIMA ELAV GFR IS code = 1092) sq m NOT ACCURATE CREATININE CLEARANCE IN PREDICTING GLOMERULAR FILTRATION RATE . ESTIMATED GFR I S NOT APPLICABLE FOR DIALYSIS PATIEN TS. Sonography Technician ID - NPAEXT-XLT7362-34-07 16:33:00 Test Item Value Reference Range Interpretation Comments ACTIVATED CLOTTING TIME 202 sec : 74 -137 seconds, (BEAKER) (test code = Baseli ne: TESTED AT 441) [facility] [address] [place], [address]: Sonography Technician/Techni rebeca ID = [id number] for SHONDA HENDRICKS CBC (HEMOGRAM ONLY)2019-05-28 16:25:00 [...] WBC 0-0 (BEAKER) (test code = 413) [id number] 14:53:00 Test Item Value Reference Range Interpretation Comments ACTIVATED CLOTTING TIME 246 sec : 74 -137 seconds, (BEAKER) (test code = Baseli ne: TESTED AT 441) [address], [address]: Sonography Technician/Techni rebeca ID = [id number] for Riley Cuevas [id number] 14:07:00 Test Item Value Reference Range Interpretation Comments ACTIVATED CLOTTING TIME 213 sec : 74 -137 seconds, (BEAKER) (test code = Baseli ne: TESTED AT 441) [address], [address]: Sonography Technician/Techni rebeca ID = [id number] for Riley Cuevas [id number] 14:07:00 Test Item Value Reference Range Interpretation Comments ACTIVATED CLOTTING TIME 109 sec : 74 -137 seconds, (BEAKER) (test code = Baselheidi ne: TESTED AT 441) [address], [address]: Sonography Technician/Techni rebeca ID = [id number] for Riley Cuevas Creatinine, random [id number] 13:05:00 Test Item Value Reference Range Interpretation Comments Creatinine, Ur 65.1 mg/dL (test code = 2161-8) KAREN (test code = Reference Range: No KAREN) NormalsOperator ID - BS [facility] CenterProtein, random [id number] 13:05:00 Test Item Value Reference Range Interpretation Comments Protein, Urine (test code = 10 mg/dL 0-14 2888-6) KAREN (test code = KAREN) Sonography Technician ID - BS Lab Interpretation (test Normal code = 99864-0) [facility] [id number] 13:05:00 Test Item Value Reference Range Interpretation Comments Sodium Urine (test 35 meq/L code = 2955-3) KAREN (test code = Reference Range: No KAREN) NormalsOperator ID - BS [facility] HospitalCREATININE, RANDOM [id number] 13:05:00 Test Item Value Reference Range Interpretation Comments CREATININE URINE (BEAKER) (test 65.1 mg/dL code = 375) Reference Range: No NormalsOperator ID - BSPROTEIN, RANDOM [id number] 13:05:00 Test Item Value Reference Range Interpretation Comments PROTEIN, URINE (BEAKER) (test code = 10 mg/dL 0-14 1569) Sonography Technician ID - BSSODIUM, RANDOM [id number] 13:05:00 Test Item Value Reference Range Interpretation Comments SODIUM URINE (BEAKER) (test code = 35 meq/L 243) Reference Range: No NormalsOperator ID - BSPOCT-GLUCOSE [id number] 12:14:00 Test Item Value Reference Range Interpretation Comments POC-GLUCOSE METER 313 mg/dL 70-110 H : TESTED A T [facility] [address] [facility] (test code = JODY [place] [facility], 1538) [address]: Sonography Technician/Techni rebeca ID = [id number] for SHONDA MORA POCT-GLUCOSE [id number] 09:43:00 Test Item Value Reference Range Interpretation Comments POC-GLUCOSE METER 272 mg/dL 70-110 H : Notified RN/MD: (BEAKER) (test code = TESTED AT [facility] 67[address] 1538) [facility], [address]: Sonography Technician/Techni rebeca ID = [id number] for LIZ PRIEST [id number] 09:00:00 Test Item Value Reference Range Interpretation Comments PTT (test code = 36395-0) 67.2 22.5- 36.0 seconds H Lab Interpretation (test code = Abnormal 31552-8) [facility] CenterAPTT2020-04-07 09:00:00 Test Item Value Reference Range Interpretation Comments PARTIAL THROMBOPLASTIN TIME 67.2 seconds 22.5-36.0 H (BEAKER) (test code = 760) BASIC METABOLIC [id number] 07:07:00 Test Item Value Reference Range Interpretation [...] S NOT APPLICABLE FOR DIALYSIS PATIEN TS. Sonography Technician ID - [id number] 06:56:00 Test Item Value Reference Range Interpretation [...] = 413) CBC W/PLT COUNT & AUTO [id number] 06:51:00 Test Item Value Reference Range Interpretation [...] (BEAKER) (test code = 2801) ECG 12 gani7901-28-25 06:33:54Interface, External Ris In - 05/28/2019 6:33 AM CDTVentricular Rate 91 BPMAtrial Rate 91 BPMP-R Interval 184 msQRS Duration 112 msQ-T Interval 410 msQTC Calculation(Bazett) 504 msP [place] 80 degreesR [place] 53 degreesT [place] 215 degreesNormal sinus rhythmIncomplete left bundle branch blockST depression inferior and anterolateral leads + ST elevation in aVR consider ischemiaProlonged QTAbnormal ECGWhen compared with ECG of 22:06ST now depressed in Lateral leadsST now elevated in aVRConfirmed by MD JORGE, MATHEUS ([id number]) on 05/28/2019 6:33:47 [facility] I 2019-05-28 05:00:00 Test Item Value Reference Range Interpretation Comments Troponin I (test code = 1.06 ng/mL 0-0.03 55315-4) KAREN (test code = KAREN) Troponin I [...] BS Lab Interpretation (test Abnormal code = 83657-8) [facility] [id number] 05:00:00 Test Item Value Reference Range Interpretation [...] failure, acidosis, acute neurological disease, and persistent tachyarrhythmia.Sonography Technician ID - BSTROPONIN [id number] 00:21:00 Test Item Value Reference Range Interpretation [...] failure, acidosis, acute neurological disease, and persistent tachyarrhythmia.Sonography Technician ID - BSBASIC METABOLIC PANEL 2019-05-28 00:18:00 [...] S NOT APPLICABLE FOR DIALYSIS PATIEN TS. Sonography Technician ID - BSB-TYPE NATRIURETIC FACTOR (BNP)2019-05-28 00:13:00 Test Item Value Reference Range Interpretation Comments B-TYPE NATRIURETIC PEPTIDE (BEAKER) 416 pg/mL 0-100 H (test code = 700) Sonography Technician ID - BSPT/cGMC4897-25-61 23:58:00 Test Item Value Reference Range Interpretation Comments Protime (test code = 13.3 11.9- 14.2 5902-2) seconds INR (test code = 1.0 <=5.9 6301-6) PTT (test code = 25.2 22.5- 36.0 20747-5) seconds KAREN (test code = KAREN) Effective 07/18/2018: PT Reference Range ChangeNew: 11.9-14.2 Previous: 11.7-14.7 RECOMMENDED COUMADIN/WARFARIN INR THERAPY RANGESSTANDARD DOSE: 2.0-3.0 Includes: PROPHYLAXIS for venous thrombosis, systemic embolization; TREATMENT for venous thrombosis and/or pulmonary embolus.HIGH RISK: Target INR is 2.5-3.5 for patients wiht mechanical heart valves. Lab Interpretation Normal (test code = 31425-6) [facility] CenterAPTT2020-04-[facility] 23:58:00 Test Item Value Reference Range Interpretation Comments PARTIAL THROMBOPLASTIN TIME 24.1 seconds 22.5-36.0 (BEAKER) (test code = 760) 6 hours after starting heparin infusion and as indicated per sliding scale PT/[id number] 23:58:00 Test Item Value Reference Range Interpretation [...] is2.5-3.5 for patients wiht mechanical heart valves.Platelet [id number] 23:50:00 Test Item Value Reference Range Interpretation Comments Platelets (test code = 209 150- 450 K/CU MM 777-3) KAREN (test code = KAREN) Sonography Technician ID - [id number] Lab Interpretation (test Normal code = 90982-9) [facility] W/PLT COUNT & AUTO [id number] 23:50:00 Test Item Value Reference Range Interpretation [...] PERCENT (BEAKER) (test code = 2801) PLATELET [id number] 23:50:00 Test Item Value Reference Range Interpretation Comments PLATELET COUNT (BEAKER) (test 209 K/CU MM 150-450 code = 756) Sonography Technician ID - [id number], CHEST, 1 VIEW, NON [id number] 23:36:00Reason for exam:->CHEST PAIN, dyspneaShould this be [...] 23:36:18 XR chest 1 view portable / [id number] 23:36:00Interface, External Ris In - 05/27/2019 11:38 [...] Ochoa Fry [place] Verified Date/Time: 05/27/2019 23:36:18 [facility] 2019-03-23 11:53:00 Test Item Value Reference Range Interpretation Comments POC-GLUCOSE METER 309 mg/dL 70-110 H : TESTED Carli T [facility] [address] (CRISTY) (test code = [place], [address]38) [address]: Sonography Technician/Techni rebeca ID = [id number] for NOVA PERSAUD Carotid doppler grqxkhzlv6147-04-86 09:28:23Ejection FractionSLE ECHO HEARTLAB MKCKESSON CPACSRight Impression1. [...] Study 03/22/2019 DARCIOBDEShay Age 78 Visit Number [id number] Gender Female Accession Number [id number] Date of 1940 Referring [facility] Room Number C633 Physician SonographApolinar De T [...] + + - Additional Measurements:ICAPSV/CCAPSV 1.49.ICAEDV/CCAEDV 1.48.[facility] HospitalPOCT-[facility]SE [id number] 08:34:00 Test Item Value Reference Range Interpretation Comments POC-GLUCOSE METER 209 mg/dL 70-110 H : TESTED A T [facility] [address] (CRISTY) (test code = JODY Gip[place] [facility], 1538) [address]: Sonography Technician/Techni rebeca ID = [id number] for NOVA PERSAUD Comprehensive metabolic [id number] 07:27:00 Test Item Value Reference Range Interpretation Comments Protein, Total (test 6.3 6.0- 8.3 gm/dL Speci men slightly code = 2885-2) hemolyzed Albumin (test code = 3.4 g/dL 3.5-5 L Specime n slightly 22914-5) hemolyzed Alkaline Phosphatase 52 U/L 40-150 (test code = 6768-6) Total Bilirubin (test 0.4 mg/dL 0.2-1.2 Specim en slightly code = 1974-2) hemolyzed Sodium (test code = 140 meq/L 637-068 5986-2) Potassium (test code = 4.1 meq/L 3.5-5.1 [...] Calcium (test code = 9.0 mg/dL 8.4-10.2 00090-8) AST (test code = 27 U/L 5-34 Specimen sl ightly 1920-8) hemolyzed ALT (test code = 14 U/L 6-55 Specimen sl ightly 1742-6) hemolyzed EGFR (test code = 16 mL/min/1.[place] [address]-8) NOT ACCURATE CREATININE CLEARANCE IN PREDICTING GLOMERULAR FILTRATION RATE . ESTIMATED GFR I S NOT APPLICABLE FOR DIALYSIS PATIENTS. KAREN (test code = KAREN) Sonography Technician ID - PIAYA L Lab Interpretation Abnormal (test code = 67669-2) [facility] CenterCOMPREHENSIVE METABOLIC [id number] 07:27:00 Test Item Value Reference Range Interpretation [...] S NOT APPLICABLE FOR DIALYSIS PATIEN TS. Sonography Technician ID - PIAYA LCBC W/PLT COUNT & AUTO [id number] 03:51:00 Test Item Value Reference Range Interpretation [...] PERCENT (BEAKER) (test code = 2801) POCT-GLUCOSE [id number] 22:09:00 Test Item Value Reference Range Interpretation Comments POC-GLUCOSE METER 172 mg/dL 70-110 H : TESTED A T [facility] 67[address] (BEAKER) (test code = [facility], 1538) [address]: Sonography Technician/Techni rebeca ID = [id number] for HAIR ASH POCT-GLUCOSE [id number] 17:30:00 Test Item Value Reference Range Interpretation Comments POC-GLUCOSE METER 284 mg/dL 70-110 H : TESTED A T [facility] 67[address] (BEAKER) (test code = [facility], 1538) [address]: Sonography Technician/Techni rebeca ID = [id number] for NOVA PERSAUD 2D Echo W/Doppler(CW/PW/Color)2019-03-22 17:25:25Ejection FractionSLEH ECHO HEARTLAB MKCKESSON CPACSInterface, External Ris In - 03/22/2019 5:25 PM C STTransthoracic Echocardiography Report (TTE) Demographics Patient Name HENRIQUE ARECHIGA Date of Study 03/22/2019 ESCOBDEO Gender Female Visit Number [id number] Race [id number] Room Number [id number] Number Date of 1940 Referring Physician Peyton Choe Age 78 year(s) Print Buyer Daniel Khan Interpreting Raul Acosta MD Physician [...] CO: 6.85 l/min LVOT CI: 4.1 l/min/m^2[facility] METABOLIC [id number] 16:26:00 Test Item Value Reference Range Interpretation [...] S NOT APPLICABLE FOR DIALYSIS PATIEN TS. Sonography Technician ID - AAHAMIDPOCT-GLUCOSE [id number] 16:16:00 Test Item Value Reference Range Interpretation Comments POC-GLUCOSE METER 233 mg/dL 70-110 H : TESTED A T [facility] [address] (BEAKER) (test code = [place], 1538) [address]: Sonography Technician/Techni rebeca ID = [id number] for NOVA PERSAUD CBC (HEMOGRAM ONLY)2019-03-22 16:08:00 [...] WBC 0-0 (BEAKER) (test code = 413) [id number] 11:06:00 Test Item Value Reference Range Interpretation Comments ACTIVATED CLOTTING TIME 263 sec Refe rence Range: (BEAKER) (test code = 74-137 seconds, 441) Baseline/TESTED AT [address] [address] [id number] 10:50:00 Test Item Value Reference Range Interpretation Comments ACTIVATED CLOTTING TIME 263 sec Refe rence Range: (BEAKER) (test code = 74-137 seconds, 441) Baseline/TESTED AT [address] [address] POCT-GLUCOSE [id number] 07:45:00 Test Item Value Reference Range Interpretation Comments POC-GLUCOSE METER 188 mg/dL 70-110 H : TESTED A T [place] [address] (BEAKER) (test code = [facility], 1538) [address]: Sonography Technician/Techni rebeca ID = [id number] for BRANDI KIMBLE BASIC METABOLIC [id number] 02:49:00 Test Item Value Reference Range Interpretation [...] S NOT APPLICABLE FOR DIALYSIS PATIEN TS. Sonography Technician STEPHANE Devin MARILU LB-TYPE NATRIURETIC FACTOR (BNP)2019-03-22 02:44:00 Test Item Value Reference Range Interpretation Comments B-TYPE NATRIURETIC PEPTIDE (BEAKER) 815 pg/mL 0-100 H (test code = 700) Sonography Technician STEPHANE MICHEL LLipid [id number] 02:42:00 Test Item Value Reference Range Interpretation Comments Triglycerides (test 102 mg/dL code = 2571-8) Cholesterol (test code 161 mg/dL = 2093-3) HDL (test code = 40 mg/dL 2085-9) LDL Calculated (test 101 mg/dL code = 76451-8) KAREN (test code = KAREN) Triglyceride Reference Range: Low Risk <150 Borderline 150-199 High Risk 200-499 Very High Risk >=500 Cholesterol Reference Range: Low Risk <200 Borderline 200-239 High Risk >240 HDL Cholesterol Reference Range: Low Risk >=60 High Risk <40 LDL Cholesterol Reference Range: Optimal <100 Near Optimal 100-129 Borderline 130-159 High 160-189 Very High >=190 Sonography Technician STEPHANE MICHEL [facility] CenterPHOSPHORUS2020-01-31 02:42:00 Test Item Value Reference Range Interpretation Comments PHOSPHORUS (BEAKER) (test code = 4.4 mg/dL 2.3-4.7 604) Sonography Technician STEPHANE MICHEL [id number] 02:42:00 Test Item Value Reference Range Interpretation Comments MAGNESIUM (BEAKER) (test code = 2.1 mg/dL 1.6-2.6 627) Sonography Technician STEPHANE Devin MARILU LLIPID [id number] 02:42:00 Test Item Value Reference Range Interpretation [...] Borderline 130-159 High 160-189 Very High >=190 Sonography Technician ID - [id number] 02:36:00 Test Item Value Reference Range Interpretation Comments PARTIAL THROMBOPLASTIN TIME 85.7 seconds 22.5-36.0 H (BEAKER) (test code = 760) CALCIUM, [id number] 02:33:00 Test Item Value Reference Range Interpretation Comments CALCIUM IONIZED (BEAKER) (test 1.10 mmol/L 1.12-1.27 L code = 698) PH, BLOOD (BEAKER) (test code = 7.40 1810) CBC W/PLT COUNT & AUTO [id number] 02:23:00 Test Item Value Reference Range Interpretation [...] (BEAKER) (test code = 2801) U/S, ABDOMINAL, [id number] 01:50:00Reason for exam:->abd painFINAL REPORT INDICATION: abd [...] MDReport Verified Date/Time: 03/22/2019 01:50:03 US abdomen [id number] 01:50:00Interface, External Ris In - 03/22/2019 1:53 [...] Signed: Socorro Méndez Verified Date/Time: 03/22/2019 01:50:03 [facility] [id number] 21:37:00 Test Item Value Reference Range Interpretation Comments POC-GLUCOSE METER 257 mg/dL 70-110 H : TESTED A T [facility] 6720 (BEAKER) (test code = [facility], 1538) 31476: Sonography Technician/Techni rebeca ID = [id number] for RAMO BURLESON EMILIO [id number] 19:18:00 Test Item Value Reference Range Interpretation Comments PARTIAL THROMBOPLASTIN TIME 53.5 seconds 22.5-36.0 H (BEAKER) (test code = 760) POCT-GLUCOSE [id number] 17:38:00 Test Item Value Reference Range Interpretation Comments POC-GLUCOSE METER 246 mg/dL 70-110 H : TESTED A T [facility] 6720 (BEAKER) (test code = [facility], 1538) 95616: Sonography Technician/Techni rebeca ID = [id number] for SHY MIRAMONTES CT, BRAIN, WITHOUT [id number] 17:36:00Reason for exam:->Left sided weakness, more so [...] Date/Time: 03/21/2019 17:36:00 CT brain without IV [id number] 17:36:00Interface, External Ris In - 03/21/2019 5:38 [...] Signed: Kavitha Box Verified Date/Time: 03/21/2019 17:36:00 [facility] 2019-03-21 15:50:00 Test Item Value Reference Range Interpretation Comments TROPONIN I (BEAKER) (test code = 0.57 ng/mL 0.00-0.03 [facility]) Troponin I (TnI) levels must be [...] failure, acidosis, acute neurological disease, and persistent tachyarrhythmia.Sonography Technician ID - BSRAD, SHOULDER, COMPLETE (MIN 2 VIEWS), [id number] 14:38:00Reason for exam:->shoulder pain with ROMFINAL REPORT [...] MDReport Verified Date/Time: 03/21/2019 14:38:21 Reading Location: [facility] Radiology Reading Room XR shoulder complete 2 views min [id number] 14:38:00 Interface, External Ris In - 03/21/2019 [...] MDReport Verified Date/Time: 03/21/2019 14:38:21 Reading Location: [facility] Radiology [facility] [id number] 13:19:00 Test Item Value Reference Range Interpretation Comments POC-GLUCOSE METER 155 mg/dL 70-110 H : TESTED A T [facility] 6720 (BEAKER) (test code = [facility], 1538) 32431: Sonography Technician/Techni rebeca ID = [id number] for FARIBA CARRILLO [id number] 11:14:00 Test Item Value Reference Range Interpretation Comments PARTIAL THROMBOPLASTIN TIME 108.5 seconds 22.5-36.0 H (BEAKER) (test code = 760) POCT-GLUCOSE [id number] 07:51:00 Test Item Value Reference Range Interpretation Comments POC-GLUCOSE METER 198 mg/dL 70-110 H : TESTED A T [facility] 6720 (BEAKER) (test code = [facility], 1538) 17085: Sonography Technician/Techni rebeca ID = [id number] for SHY MIRAMONTES [id number] 03:52:00 Test Item Value Reference Range Interpretation Comments PARTIAL THROMBOPLASTIN 106.2 seconds 22.5-36.0 H B.no .[id number] ok to TIME (BEAKER) (test released result. code = 760) BASIC METABOLIC [id number] 02:58:00 Test Item Value Reference Range Interpretation [...] S NOT APPLICABLE FOR DIALYSIS PATIEN TS. Sonography Technician ID - MELI MCBC (HEMOGRAM ONLY)2019-03-21 02:32:00 [...] 0-0 (BEAKER) (test code = 413) POCT-GLUCOSE [id number] 21:58:00 Test Item Value Reference Range Interpretation Comments POC-GLUCOSE METER 281 mg/dL 70-110 H : TESTED A T [facility] 6720 (BEAKER) (test code [facility], = 1538) 80476: Sonography Technician/Techni rebeca ID = [id number] for WINSOME CHRISTIANSON [id number] 19:51:00 Test Item Value Reference Range Interpretation Comments PARTIAL THROMBOPLASTIN TIME 88.1 seconds 22.5-36.0 H (BEAKER) (test code = 760) CREATININE, RANDOM [id number] 18:56:00 Test Item Value Reference Range Interpretation Comments CREATININE URINE (BEAKER) (test 56.6 mg/dL code = 375) Reference Range: No NormalsOperator ID - BSPROTEIN, RANDOM [id number] 18:56:00 Test Item Value Reference Range Interpretation Comments PROTEIN, URINE (BEAKER) (test code = 11 mg/dL 0-14 1569) Sonography Technician ID - BSURINALYSIS W/ [id number] 18:48:00 Test Item Value Reference Range Interpretation [...] = 516) SOURCE(CRISTY) (test code = 2795) Sonography Technician ID - [auto]Sonography Technician ID - ynPOCT-GLUCOSE [id number] 18:32:00 Test Item Value Reference Range Interpretation Comments POC-GLUCOSE METER 190 mg/dL 70-110 H : TESTED A T [facility] 6720 (CRISTY) (test code = [place], 1538) 25[address]: Sonography Technician/Techni rebeca ID = [id number] for SHY MIRAMONTES RAD, CHEST, 1 VIEW, NON [id number] 15:28:00Reason for exam:->Fluid statusShould this be performed [...] MDReport Verified Date/Time: 03/20/2019 15:28:46 Reading Location: [facility] Reading Room Electronically signed by: NOEMY STORM M.D. on03/20/2019 03:28 PMTROPONIN [id number] 13:36:00 Test Item Value Reference Range Interpretation Comments TROPONIN I (CRISTY) (test code = 0.78 ng/mL 0.00-0.03 [facility]) Troponin I (TnI) levels must be [...] failure, acidosis, acute neurological disease, and persistent tachyarrhythmia.Sonography Technician ID - TRISTON [id number] 12:50:00 Test Item Value Reference Range Interpretation Comments PARTIAL THROMBOPLASTIN TIME 65.6 seconds 22.5-36.0 H (CRISTY) (test code = 760) POCT-GLUCOSE [id number] 11:57:00 Test Item Value Reference Range Interpretation Comments POC-GLUCOSE METER 154 mg/dL 70-110 H : TESTED A T [facility] 6720 (BEAKER) (test code = [facility], 1538) 97282: Sonography Technician/Techni rebeca ID = [id number] for SHY MIRAMONTES Hemoglobin [id number] 09:21:00 Test Item Value Reference Range Interpretation Comments Hemoglobin A1C (test code = 4548-4) 8.5 % 4.3-6.1 H Lab Interpretation (test code = Abnormal 82680-1) [facility] [id number] 09:21:00 Test Item Value Reference Range Interpretation Comments HEMOGLOBIN A1C (BEAKER) (test code = 8.5 % 4.3-6.1 H 368) POCT-GLUCOSE [id number] 07:53:00 Test Item Value Reference Range Interpretation Comments POC-GLUCOSE METER 99 mg/dL 70-110 : TESTED A T [facility] 6720 (BEAKER) (test code = [facility], 1538) 50992: Sonography Technician/Techni rebeca ID = [id number] for KARLEY MANCUSO TROPONIN [id number] 06:40:00 Test Item Value Reference Range Interpretation [...] failure, acidosis, acute neurological disease, and persistent tachyarrhythmia.Sonography Technician ID - KENNTROPONIN [id number] 01:53:00 Test Item Value Reference Range Interpretation [...] failure, acidosis, acute neurological disease, and persistent tachyarrhythmia.Sonography Technician ID - MICASIC METABOLIC PANEL 2019-03-20 01:52:00 [...] S NOT APPLICABLE FOR DIALYSIS PATIEN TS. Sonography Technician ID - [id number] 01:25:00 Test Item Value Reference Range Interpretation Comments MAGNESIUM (BEAKER) (test code = 2.2 mg/dL 1.6-2.6 627) Sonography Technician ID - [id number] 01:23:00 Test Item Value Reference Range Interpretation Comments PARTIAL THROMBOPLASTIN 109.9 seconds 22.5-36.0 H B.no .[id number] ok to TIME (BEAKER) (test released result. code = 760) Prior to initiating heparinCBC W/PLT COUNT & AUTO [id number] 01:02:00 Test Item Value Reference Range Interpretation [...] (a) (test 57 nmol/L <75 code = 6560110) KAREN (test code = KAREN) Performing Lab [facility] [address] [address] [place] [address] I Bright BUENO, PhD, ROBY [facility] [id number] 09:17:00 Test Item Value Reference Range Interpretation Comments POC-GLUCOSE METER 161 mg/dL 70-110 H : TESTED A T [facility] 6720 (BEAKER) (test code = [facility] [place], 1538) 17838: Sonography Technician/Techni rebeca ID = [id number] for DANIELE BAKER BASIC METABOLIC [id number] 07:10:00 Test Item Value Reference Range Interpretation [...] NOT APPLICABLE FOR DIALYSIS PATIEN TS. URIC [id number] 07:07:00 Test Item Value Reference Range Interpretation Comments URIC ACID (BEAKER) (test code = 9.9 mg/dL 2.6-7.2 H 773) [id number] 07:07:00 Test Item Value Reference Range Interpretation Comments MAGNESIUM (BEAKER) (test code = 2.3 mg/dL 1.6-2.6 627) [id number] 07:07:00 Test Item Value Reference Range Interpretation Comments PHOSPHORUS (BEAKER) (test code = 3.3 mg/dL 2.3-4.7 604) B-TYPE NATRIURETIC FACTOR (BNP)2019-01-30 06:44:00 Test Item Value Reference Range Interpretation Comments B-TYPE NATRIURETIC PEPTIDE (BEAKER) 365 pg/mL 0-100 H (test code = 700) CALCIUM, [id number] 06:31:00 Test Item Value Reference Range Interpretation Comments CALCIUM IONIZED (BEAKER) (test 1.08 mmol/L 1.12-1.27 L code = 698) PH, BLOOD (BEAKER) (test code = 7.41 1810) CBC W/PLT COUNT & AUTO [id number] 06:17:00 Test Item Value Reference Range Interpretation [...] PERCENT (BEAKER) (test code = 2801) POCT-GLUCOSE [id number] 21:20:00 Test Item Value Reference Range Interpretation Comments POC-GLUCOSE METER 140 mg/dL 70-110 H : TESTED A T [facility] 6720 (BEAKER) (test code = [facility] Bin1 ATE [facility], 1538) 07101: Sonography Technician/Techni rebeca ID = [id number] for Fatmata Robison CREATININE, RANDOM [id number] 19:07:00 Test Item Value Reference Range Interpretation Comments CREATININE URINE (BEAKER) (test 101.3 mg/dL code = 375) Reference Range: No NormalsPROTEIN, RANDOM [id number] 19:07:00 Test Item Value Reference Range Interpretation Comments PROTEIN, URINE (BEAKER) (test code = 24 mg/dL 0-14 H 1569) SODIUM, RANDOM [id number] 19:07:00 Test Item Value Reference Range Interpretation Comments SODIUM URINE (BEAKER) (test code = 27 meq/L 243) Reference Range: No NormalsPOCT-GLUCOSE [id number] 17:13:00 Test Item Value Reference Range Interpretation Comments POC-GLUCOSE METER 172 mg/dL 70-110 H : TESTED A T [facility] 6720 (BEAKER) (test code = [facility] Bin1 [facility]E [facility], 1538) 50746: Sonography Technician/Techni rebeca ID = [id number] for NICOLE SANTOS JOHNATHAN URINALYSIS W/ [id number] 15:46:00 Test Item Value Reference Range Interpretation [...] SOURCE(BEAKER) (test code = 2795) BASIC METABOLIC [id number] 13:57:00 Test Item Value Reference Range Interpretation [...] S NOT APPLICABLE FOR DIALYSIS PATIEN TS. [id number] 13:56:00 Test Item Value Reference Range Interpretation Comments PHOSPHORUS (BEAKER) (test code = 2.6 mg/dL 2.3-4.7 604) [id number] 13:56:00 Test Item Value Reference Range Interpretation Comments MAGNESIUM (BEAKER) (test code = 2.4 mg/dL 1.6-2.6 627) RAD, CHEST, 1 VIEW, NON [id number] 13:55:00Reason for exam:->Fluid statusShould this be performed at the bedside?->YesFINAL REPORT AP chest Comparison exam: 01/25/2019 History provided: Fluid status Heart size magnified by projection. Lungs currently grossly clear, and vascularity normal. Chronicdeformity of the right humeral neck. Signed: Atul Malave MDReport Verified Date/Time: 01/29/2019 13:55:37 Reading Location: [facility] Diagnostic Imaging Reading Room - [facility] 1.310.12 POCT-GLUCOSE [id number] 11:49:00 Test Item Value Reference Range Interpretation Comments POC-GLUCOSE METER 273 mg/dL 70-110 H : TESTED A T [facility] 6720 (BEAKER) (test code = JODY Brandan [facility], 1538) 42743: Sonography Technician/Techni rebeca ID = [id number] for Tatyana Sterling Clostridium difficile GDH [id number] 11:07:00 Test Item Value Reference Range Interpretation Comments C. Difficle Toxin Negative Negative (test code = 8871914300) C. Difficile GDH Positive Negative A C. difficil e Antigen (test code = present but toxin 3191443595) not detected. Indicates colonization wi th non-toxigenic [...] of kit performance was done by the [facility] Microbiology Lab prior to clinical use. Lab Interpretation Abnormal (test code = 20454-9) [facility] DIFFICILE GDH [id number] 11:07:00 Test Item Value Reference Range Interpretation Comments CDT TOXIN (test code Negative Negative = 3986915924) CDT GDH ANTIGEN Positive Negative A C. difficile present but (test code = toxin not detec elva. 8143048541) Indicates colon ization with non-toxige alexis strain or level of tox in below detectable leve ls. No need for enteri c isolation. Sandoval atment is rarely needed ( only when strong clinical suspicion for Clostridium difficile infection) Testing performed by [employer] Rapid Cassette Assay. For GDH, published sensitivity of the assay is 98.7% compared to cytotoxicity testing. For Toxin AB, published sensitivity is 87.8% and specificity 99.4% compared to cytotoxicity testing.Verification of kit performance was done by the [facility] Microbiology Lab prior to clinical use.POCT-GLUCOSE [id number] 07:57:00 Test Item Value Reference Range Interpretation Comments POC-GLUCOSE METER 227 mg/dL 70-110 H : TESTED A T [facility] 6720 (BEAKER) (test code = [facility], 1538) 23651: Sonography Technician/Techni rebeca ID = [id number] for Tatyana Sterling CBC (HEMOGRAM ONLY)2019-01-29 05:39:00 [...] (BEAKER) (test code = 413) Occult blood, [id number] 22:07:00 Test Item Value Reference Range Interpretation Comments Occult blood (test code = 2335-8) Negative Negative Lab Interpretation (test code = Normal 96301-0) [facility] [id number] 22:07:00 Test Item Value Reference Range Interpretation Comments POC-GLUCOSE METER 229 mg/dL 70-110 H : TESTED A T [facility] 6720 (BEAKER) (test code = [place] [place], 1538) 20862: Sonography Technician/Techni rebeca ID = [id number] for FI TE, SELINA OCCULT BLOOD, [id number] 22:07:00 Test Item Value Reference Range Interpretation Comments FECAL OCCULT BLOOD (BEAKER) (test Negative Negative code = 618) Transthoracic 2D echo w/ doppler (cw/pw/color)2019-01-28 15:33:30Ejection FractionSLEH ECHO HEARTLAB MKCKESSON CPACSInterface, External Ris In - 01/28/2019 3:33 PM CSTTransthoracic Echocardiography Report (TTE) Demographics Patient Name HENRIQUE ARECHIGA Date of Study 01/28/2019 ESCOBDEO Gender Female Visit Number [id number] Race Room Number 8A11 Number Date of 1940 Referring Physician Age 78 year(s) Print Buyer Melani Dozier [facility] Interpreting Garry Goodwin Physician Procedure Type of [...] LVOT CO: 4.43 l/min LVOT CI: 2.52 l/min/m^2CPomona [facility] CenterPO[facility]-GLUCOSE METER 2019-01-28 12:00:00 Test Item Value Reference Range Interpretation Comments POC-GLUCOSE METER 208 mg/dL 70-110 H : Notified RN/MD: (CRISTY) (test code = TESTED AT [facility] 4853 6504) [facility], [address]: Sonography Technician/Techni rebeca ID = [id number] for Veena Omalley [id number] 09:10:00 Test Item Value Reference Range Interpretation Comments PARTIAL THROMBOPLASTIN TIME 77.4 seconds 22.5-36.0 H (CRISTY) (test code = 760) POCT-GLUCOSE [id number] 08:40:00 Test Item Value Reference Range Interpretation Comments POC-GLUCOSE METER 153 mg/dL 70-110 H : TESTED A T [facility] 6720 (BEAKER) (test code [facility], = 1538) 38589: Sonography Technician/Techni rebeca ID = [id number] for JANETH OTT BASIC METABOLIC [id number] 05:15:00 Test Item Value Reference Range Interpretation [...] I S NOT APPLICABLE FOR DIALYSIS PATIEN [id number] 05:11:00 Test Item Value Reference Range Interpretation [...] 0-0 (BEAKER) (test code = 413) POCT-GLUCOSE [id number] 22:29:00 Test Item Value Reference Range Interpretation Comments POC-GLUCOSE METER 235 mg/dL 70-110 H : TESTED A T [facility] 6720 (BEAKER) (test code = [facility] Bin1 ATE [facility], 1538) 79383: Sonography Technician/Techni rebeca ID = [id number] for HUGH COCHRAN [id number] 21:49:00 Test Item Value Reference Range Interpretation Comments PARTIAL THROMBOPLASTIN TIME 81.9 seconds 22.5-36.0 H (BEAKER) (test code = 760) POCT-GLUCOSE [id number] 17:50:00 Test Item Value Reference Range Interpretation Comments POC-GLUCOSE METER 236 mg/dL 70-110 H : TESTED A T [facility] 6720 (BEAKER) (test code = [facility] Bin1 [facility]E [facility], 1538) 35806: Sonography Technician/Techni rebeca ID = [id number] for INDIO ISAACS PT/[id number] 16:52:00 Test Item Value Reference Range Interpretation [...] INR is2.5-3.5 for patients wiht mechanical heart valves.PT/[id number] 13:41:00 Test Item Value Reference Range Interpretation [...] is2.5-3.5 for patients wiht mechanical heart valves.POCT-GLUCOSE [id number] 12:47:00 Test Item Value Reference Range Interpretation Comments POC-GLUCOSE METER 229 mg/dL 70-110 H : TESTED A T [facility] 6720 (BEAKER) (test code = [facility], 1538) 72274: Sonography Technician/Techni rebeca ID = [id number] for QU EDER, INDIO POCT-GLUCOSE [id number] 09:42:00 Test Item Value Reference Range Interpretation Comments POC-GLUCOSE METER 188 mg/dL 70-110 H : TESTED A T [facility] 6720 (BEAKER) (test code = [facility], 1538) 05508: Sonography Technician/Techni rebeca ID = [id number] for QU EDER, INDIO [id number] 06:24:00 Test Item Value Reference Range Interpretation Comments PARTIAL THROMBOPLASTIN TIME 86.3 seconds 22.5-36.0 H (BEAKER) (test code = 760) BASIC METABOLIC [id number] 04:52:00 Test Item Value Reference Range Interpretation [...] S NOT APPLICABLE FOR DIALYSIS PATIRADHA MERA. [id number] 04:25:00 Test Item Value Reference Range Interpretation [...] [facility]) (test code = 413) POCT-GLUCOSE [id number] 04:03:00 Test Item Value Reference Range Interpretation Comments POC-GLUCOSE METER 123 mg/dL 70-110 H : [facility] (test code = [facility], 1538) 62383: Sonography Technician/Techni rebeca ID = [id number] for ANDI ZUNIGA POCT-GLUCOSE [id number] 21:41:00 Test Item Value Reference Range Interpretation Comments POC-GLUCOSE METER 293 mg/dL 70-110 H : [facility]) (test code = [facility], 1538) 27629: Sonography Technician/Techni rebeca ID = [id number] for ANDI ZUNIGA [id number] 19:17:00 Test Item Value Reference Range Interpretation Comments PARTIAL THROMBOPLASTIN TIME 27.4 seconds 22.5-36.0 ([facility]) (test code = 760) Prior to initiating heparinPLATELET [id number] 18:53:00 Test Item Value Reference Range Interpretation Comments PLATELET COUNT ([facility]) (test 249 K/CU MM 150-450 code = 756) POCT-GLUCOSE [id number] 13:46:00 Test Item Value Reference Range Interpretation Comments POC-GLUCOSE METER 246 mg/dL 70-110 H : Notified RN/MD: (CRISTY) (test code = TESTED AT [place] [address] 1538) [facility], [address]: Sonography Technician/Techni rebeca ID = [id number] for Phi nisee, Veena POCT-GLUCOSE [id number] 08:33:00 Test Item Value Reference Range Interpretation Comments POC-GLUCOSE METER 124 mg/dL 70-110 H : Notified RN/MD: (CRISTY) (test code = TESTED AT [place] [address] 1538) [facility], [address]: Sonography Technician/Techni rebeca ID = [id number] for Phi nisee, Veena TROPONIN [id number] 07:02:00 Test Item Value Reference Range Interpretation [...] 0-0 (BEAKER) (test code = 413) POCT-GLUCOSE [id number] 05:54:00 Test Item Value Reference Range Interpretation Comments POC-GLUCOSE METER 94 mg/dL 70-110 : TESTED A T [facility] 6720 (BEAKER) (test code = [facility] [place], 1538) [address]: Sonography Technician/Techni rebeca ID = [id number] for ROSS , SYNTERIA RAD, CHEST, 1 VIEW, NON [id number] 03:34:00Reason for exam:->chest painShould this be performed [...] Ying MDReport Verified Date/Time: 01/26/2019 03:34:50 TROPONIColin [id number] 00:11:00 Test Item Value Reference Range Interpretation [...] acute neurological disease, and persistent tachyarrhythmia.COMPREHENSIVE METABOLIC [id number] 00:09:00 Test Item Value Reference Range Interpretation [...] pg/mL 0-100 H (test code = 700) [id number] 23:56:00 Test Item Value Reference Range Interpretation Comments MAGNESIUM (BEAKER) 2.3 mg/dL 1.6-2.6 Specimen slightly (test code = 627) hemolyzed [id number] 23:53:00 Test Item Value Reference Range Interpretation Comments PARTIAL THROMBOPLASTIN TIME 20.7 seconds 22.5-36.0 L (BEAKER) (test code = 760) Prior to initiating heparinProthrombin time/[id number] 23:41:00 Test Item Value Reference Range Interpretation [...] heparin Lab Interpretation Normal (test code = 76522-5) [facility] CenterPROTHROMBIN TIME/[id number] 23:41:00 Test Item Value Reference Range Interpretation [...] per sliding scaleCBC W/PLT COUNT & AUTO [id number] 23:33:00 Test Item Value Reference Range Interpretation [...] PERCENT (BEAKER) (test code = 2801) POCT-GLUCOSE [id number] 22:21:00 Test Item Value Reference Range Interpretation Comments POC-GLUCOSE METER 210 mg/dL 70-110 H : TESTED A T [facility] 6720 (BEAKER) ([facility] = [facility], 1538) [address]: Sonography Technician/Techni rebeca ID = [id number] for NICOLE BEE JEROME POCT-GLUCOSE [id number] 12:57:00 Test Item Value Reference Range Interpretation Comments POC-GLUCOSE METER 318 mg/dL 70-110 H : TESTED A T [facility] 6720 (BEAKER) (test code [facility], = 1538) [address]: Sonography Technician/Techni rebeca ID = [id number] for LEX MEMBRENO POCT-GLUCOSE [id number] 08:08:00 Test Item Value Reference Range Interpretation Comments POC-GLUCOSE METER 263 mg/dL 70-110 H : TESTED A T [facility] 6720 (BEAKER) (test code = [place] [place], 1538) [address]: Sonography Technician/Techni rebeca ID = [id number] for NOVA PERSAUD CBC W/PLT COUNT & AUTO [id number] 05:21:00 Test Item Value Reference Range Interpretation [...] (BEAKER) (test code = 2801) BASIC METABOLIC [id number] 05:18:00 Test Item Value Reference Range Interpretation [...] S NOT APPLICABLE FOR DIALYSIS PATIEN TS. [id number] 05:17:00 Test Item Value Reference Range Interpretation Comments PHOSPHORUS (BEAKER) (test code = 4.4 mg/dL 2.3-4.7 604) [id number] 05:17:00 Test Item Value Reference Range Interpretation Comments MAGNESIUM (BEAKER) (test code = 2.0 mg/dL 1.6-2.6 627) B-TYPE NATRIURETIC FACTOR (BNP)2018-12-25 04:55:00 Test Item Value Reference Range Interpretation Comments B-TYPE NATRIURETIC PEPTIDE (BEAKER) 775 pg/mL 0-100 H (test code = 700) CALCIUM, [id number] 04:45:00 Test Item Value Reference Range Interpretation Comments CALCIUM IONIZED (BEAKER) (test 1.16 mmol/L 1.12-1.27 code = 698) PH, BLOOD ([facility]) (test code = 7.32 1810) POCT-GLUCOSE [id number] 23:15:00 Test Item Value Reference Range Interpretation Comments POC-GLUCOSE METER 280 mg/dL 70-110 H : Notified RN/MD: (CRISTY) (test code = TESTED AT [place] [address] 1538) [facility], [address]: Sonography Technician/Techni rebeca ID = [id number] for KEZIA GILMOREA POCT-GLUCOSE [id number] 23:13:00 Test Item Value Reference Range Interpretation Comments POC-GLUCOSE METER 179 mg/dL 70-110 H : TESTED A T [place] [address] ([facility]) (test code = [facility], 1538) [address]: Sonography Technician/Techni rebeca ID = [id number] for KEZIA GILMORE [place] [id number] 22:12:00 Test Item Value Reference Range Interpretation Comments ACTIVATED CLOTTING TIME 147 sec Refe rence Range: (BEAKER) (test code = 74-137 seconds, 441) Baseline/TESTED AT [place] [id number] [facility] [address] 0 [id number] 17:58:00 Test Item Value Reference Range Interpretation Comments ACTIVATED CLOTTING TIME 257 sec Refe rence Range: (BEAKER) (test code = 74-137 seconds, 441) Baseline/TESTED AT [place] [id number] [facility] 7[address] 0 [id number] 17:57:00 Test Item Value Reference Range Interpretation Comments ACTIVATED CLOTTING TIME 252 sec Refe rence Range: (BEAKER) (test code = 74-137 seconds, 441) Baseline/TESTED AT [place] [id number] [facility] 7703 0 POCT-GLUCOSE [id number] 12:58:00 Test Item Value Reference Range Interpretation Comments POC-GLUCOSE METER 150 mg/dL 70-110 H : TESTED A T [place] [address] (BEAKER) (test code = JODY Gipson [facility], 1538) [address]: Sonography Technician/Techni rebeca ID = [id number] for MUKESH GOODRICH [id number] 08:41:00 Test Item Value Reference Range Interpretation Comments PARTIAL THROMBOPLASTIN TIME 69.4 seconds 22.5-36.0 H (BEAKER) (test code = 760) POCT-GLUCOSE [id number] 08:37:00 Test Item Value Reference Range Interpretation Comments POC-GLUCOSE METER 115 mg/dL 70-110 H : Notified RN/MD: (AKER) (test code = TESTED AT [facility] 6720 1538) [facility], [address]: Sonography Technician/Techni rebeca ID = [id number] for Adilene Madrigal COMPREHENSIVE METABOLIC [id number] 01:52:00 Test Item Value Reference Range Interpretation [...] S NOT APPLICABLE FOR DIALYSIS PATIEN TS. [id number] 01:29:00 Test Item Value Reference Range Interpretation Comments PARTIAL THROMBOPLASTIN TIME 51.5 seconds 22.5-36.0 H (BEAKER) (test code = 760) POCT-GLUCOSE [id number] 18:32:00 Test Item Value Reference Range Interpretation Comments POC-GLUCOSE METER 185 mg/dL 70-110 H : TESTED A T [facility] 6720 (BEAKER) (test code = [facility], 1538) [address]: Sonography Technician/Techni rebeca ID = [id number] for Akash Vera POCT-GLUCOSE [id number] 18:31:00 Test Item Value Reference Range Interpretation Comments POC-GLUCOSE METER 210 mg/dL 70-110 H : TESTED A T [facility] 6720 (BEAKER) (test code = [facility], 1538) [address]: Sonography Technician/Techni rebeca ID = [id number] for Fr campos, Akash POCT-GLUCOSE [id number] 18:29:00 Test Item Value Reference Range Interpretation Comments POC-GLUCOSE METER 150 mg/dL 70-110 H : TESTED A T [facility] 6720 (BEAKER) (test code = [facility], 1538) [address]: Sonography Technician/Techni rebeca ID = [id number] for LIZ PRIEST [id number] 16:30:00 Test Item Value Reference Range Interpretation Comments PARTIAL THROMBOPLASTIN TIME 98.0 seconds 22.5-36.0 H (BEAKER) (test code = 760) TROPONIN [id number] 09:11:00 Test Item Value Reference Range Interpretation Comments TROPONIN I (BEAKER) (test code = 0.97 ng/mL 0.00-0.03 [facility]) Troponin I (TnI) levels must be [...] failure, acidosis, acute neurological disease, and persistent tachyarrhythmia.[id number] 07:52:00 Test Item Value Reference Range Interpretation Comments PHOSPHORUS (BEAKER) (test code = 3.9 mg/dL 2.3-4.7 604) [id number] 07:52:00 Test Item Value Reference Range Interpretation Comments MAGNESIUM (BEAKER) (test code = 2.0 mg/dL 1.6-2.6 627) COMPREHENSIVE METABOLIC [id number] 07:52:00 Test Item Value Reference Range Interpretation [...] NOT APPLICABLE FOR DIALYSIS PATIEN TS. CALCIUM, [id number] 07:37:00 Test Item Value Reference Range Interpretation Comments CALCIUM IONIZED (BEAKER) (test 1.14 mmol/L 1.12-1.27 code = 698) PH, BLOOD (BEAKER) (test code = 7.40 1810) B-TYPE NATRIURETIC FACTOR (BNP)2018-12-23 06:42:00 Test Item Value Reference Range Interpretation Comments B-TYPE NATRIURETIC PEPTIDE (BEAKER) 190 pg/mL 0-100 H (test code = 700) [id number] 05:48:00 Test Item Value Reference Range Interpretation Comments PARTIAL THROMBOPLASTIN TIME 90.8 seconds 22.5-36.0 H (BEAKER) (test code = 760) CBC W/PLT COUNT & AUTO [id number] 05:35:00 Test Item Value Reference Range Interpretation [...] PERCENT (BEAKER) (test code = 2801) POCT-GLUCOSE [id number] 21:16:00 Test Item Value Reference Range Interpretation Comments POC-GLUCOSE METER 200 mg/dL 70-110 H : TESTED A T [facility] 6720 (AKER) (test code [facility], = 1538) [address]: Sonography Technician/Techni rebeca ID = [id number] for GISSELLE OLMSTEAD [id number] 20:08:00 Test Item Value Reference Range Interpretation Comments PARTIAL THROMBOPLASTIN TIME 51.9 seconds 22.5-36.0 H (BEAKER) (test code = 760) POCT-GLUCOSE [id number] 17:37:00 Test Item Value Reference Range Interpretation Comments POC-GLUCOSE METER 211 mg/dL 70-110 H : TESTED A T [facility] 6720 (BEAKER) (test code = [facility], 1538) [address]: Sonography Technician/Techni rebeca ID = [id number] for Kit Trivediille [id number] 13:26:00 Test Item Value Reference Range Interpretation Comments PARTIAL THROMBOPLASTIN TIME 65.2 seconds 22.5-36.0 H (BEAKER) (test code = 760) POCT-GLUCOSE [id number] 13:18:00 Test Item Value Reference Range Interpretation Comments POC-GLUCOSE METER 194 mg/dL 70-110 H : TESTED A T [facility] 6720 (BEAKER) (test code = [facility], 1538) [address]: Sonography Technician/Techni rebeca ID = [id number] for Deepa Trivedi HEMOGLOBIN [id number] 10:07:00 Test Item Value Reference Range Interpretation Comments HEMOGLOBIN A1C (BEAKER) (test code = 10.2 % 4.3-6.1 H 368) [id number] 09:05:00 Test Item Value Reference Range Interpretation Comments Ferritin (test code = 2276-4) 195 ng/mL 5-275 Lab Interpretation (test code = Normal 43732-4) [facility] 09:05:00 Test Item Value Reference Range Interpretation Comments FERRITIN (BEAKER) (test code = 361) 195 ng/mL 5-275 POCT-GLUCOSE [id number] 08:37:00 Test Item Value Reference Range Interpretation Comments POC-GLUCOSE METER 202 mg/dL 70-110 H : TESTED A T [facility] 6720 (BEAKER) (test code = [facility], 1538) [address]: Sonography Technician/Techni rebeca ID = [id number] for CLIFF JACOBO CALCIUM, [id number] 06:55:00 Test Item Value Reference Range Interpretation [...] 2502-3) Lab Interpretation (test code = Abnormal 05841-8) [facility] Center[facility], TIBC, % SAT. (WITHOUT FERRITIN)2018-12-22 06:37:00 Test Item Value Reference Range Interpretation Comments IRON (BEAKER) (test code = 547) 85.0 ug/dL 40.0-160.0 TOTAL IRON BINDING CAPACITY 226 ug/dL 250-450 L (BEAKER) (test code = 769) IRON % SATURATION (2) (BEAKER) 38 % 20-55 (test code = 2590) TROPONIN [id number] 05:40:00 Test Item Value Reference Range Interpretation [...] acute neurological disease, and persistent tachyarrhythmia.COMPREHENSIVE METABOLIC [id number] 05:39:00 Test Item Value Reference Range Interpretation [...] pg/mL 0-100 H (test code = 700) [id number] 05:32:00 Test Item Value Reference Range Interpretation Comments PHOSPHORUS (BEAKER) (test code = 4.8 mg/dL 2.3-4.7 H 604) [id number] 05:32:00 Test Item Value Reference Range Interpretation Comments MAGNESIUM (BEAKER) (test code = 2.0 mg/dL 1.6-2.6 627) [id number] 05:19:00 Test Item Value Reference Range Interpretation Comments PARTIAL THROMBOPLASTIN TIME 92.9 seconds 22.5-36.0 H (BEAKER) (test code = 760) Reticulocyte [id number] 05:11:00 Test Item Value Reference Range Interpretation Comments % Retic (test code = 96603-4) 2.0 % 0.5-1.7 H Lab Interpretation (test code = Abnormal 25447-8) [facility] Center[facility]ICULOCYTE [id number] 05:11:00 Test Item Value Reference Range Interpretation Comments RETICULOCYTE COUNT PCT (BEAKER) (test 2.0 % 0.5-1.7 H code = 575) CBC W/PLT COUNT & AUTO [id number] 05:11:00 Test Item Value Reference Range Interpretation [...] (BEAKER) (test code = 2801) U/S, RENAL, [id number] 01:46:00Reason for exam:->AKIShould this be performed at [...] Ying MDReport Verified Date/Time: 12/22/2018 01:46:35 POCT-GLUCOSE [id number] 22:07:00 Test Item Value Reference Range Interpretation Comments POC-GLUCOSE METER 105 mg/dL 70-110 : TESTED A T [facility] 6720 (BEAKER) (test code = [facility], 1538) 90[address]: Sonography Technician/Techni rebeca ID = [id number] for Iza Hamilton [id number] 20:19:00 Test Item Value Reference Range Interpretation Comments PARTIAL THROMBOPLASTIN TIME 75.7 seconds 22.5-36.0 H (BEAKER) (test code = 760) POCT-GLUCOSE [id number] 17:42:00 Test Item Value Reference Range Interpretation Comments POC-GLUCOSE METER 305 mg/dL 70-110 H : TESTED A T [facility] 6720 (BEAKER) (test code = [facility], 1538) [address]: Sonography Technician/Techni rebeca ID = [id number] for CLIFF JACOBO URINALYSIS W/ [id number] 14:46:00 Test Item Value Reference Range Interpretation [...] SOURCE(BEAKER) (test code = 2795) CREATININE, RANDOM [id number] 14:45:00 Test Item Value Reference Range Interpretation Comments CREATININE URINE (BEAKER) (test 123.0 mg/dL code = 375) Reference Range: No [id number] 14:24:00 Test Item Value Reference Range Interpretation Comments PARTIAL THROMBOPLASTIN TIME 67.3 seconds 22.5-36.0 H (BEAKER) (test code = 760) PROTEIN, RANDOM [id number] 14:23:00 Test Item Value Reference Range Interpretation Comments PROTEIN, URINE (BEAKER) (test code = 20 mg/dL 0-14 H 1569) SODIUM, RANDOM [id number] 14:23:00 Test Item Value Reference Range Interpretation Comments SODIUM URINE (BEAKER) (test code = 26 meq/L 243) Reference Range: No Uveerxb1T Echo W/Doppler(CW/PW/Color)2018-12-21 12:36:19 Ejection FractionSLEH ECHO HEARTLAB MKCKESSON CPACSInterface, External Ris In - 12/21/2018 12:36 PM CDTTransthoracic Echocardiography Report (TTE) Demographics Patient Name HENRIQUE ARECHIGA Date of Study 12/21/2018 RANDEE Gender Female Visit Number [id number] Race Room Number 6105 Number Date of 1940 Referring Peyton Palmer S Physician Age 78 year(s) Print Buyer Destini Silva, ALEJANDRO, RDCS,RVT,RDMS Marketing Researcher Nader Finley Interpreting Kash Carr MD Physician [...] CO: 4.47 l/min LVOT CI: 2.63 l/min/m^2CH[facility] HospitalTROPONOLVIA [id number] 12:25:00 Test Item Value Reference Range Interpretation [...] acidosis, acute neurological disease, and persistent tachyarrhythmia.POCT-GLUCOSE [id number] 10:12:00 Test Item Value Reference Range Interpretation Comments POC-GLUCOSE METER 177 mg/dL 70-110 H : TESTED A T [facility] 6720 (CRISTY) (test code = [place], 1538) [address]: Sonography Technician/Techni rebeca ID = [id number] for CLIFF JACOBO PT/[id number] 07:55:00 Test Item Value Reference Range Interpretation [...] INR is2.5-3.5 for patients wiht mechanical heart valves.[id number] 05:00:00 Test Item Value Reference Range Interpretation Comments PARTIAL THROMBOPLASTIN TIME 132.7 seconds 22.5-36.0 H (BEOJ) (test code = 760) 6 hours after starting heparin infusion and as indicated per sliding scale TROPONIN [id number] 04:38:00 Test Item Value Reference Range Interpretation [...] acute neurological disease, and persistent tachyarrhythmia.BASIC METABOLIC [id number] 04:37:00 Test Item Value Reference Range Interpretation [...] 0-0 (BEAKER) (test code = 413) TROPONIN [id number] 01:13:00 Test Item Value Reference Range Interpretation [...] acidosis, acute neurological disease, and persistent tachyarrhythmia.POCT-GLUCOSE [id number] 00:48:00 Test Item Value Reference Range Interpretation Comments POC-GLUCOSE METER 226 mg/dL 70-110 H : TESTED A T [facility] 6720 ([facility]) (test code = JODY Gipson [facility], 1538) [address]: Sonography Technician/Techni rebeca ID = [id number] for TISHA BISHOP LU RAD, CHEST, 1 VIEW, NON [id number] 21:25:00Reason for exam:->chest painShould this be performed [...] Wilson Valdez MDReport Verified Date/Time:12/20/2018 21:25:44 LY [id number] 21:11:00 Test Item Value Reference Range Interpretation [...] (BEAKER) (test code = 700) COMPREHENSIVE METABOLIC [id number] 21:05:00 Test Item Value Reference Range Interpretation [...] S NOT APPLICABLE FOR DIALYSIS PATIEN TS. [id number] 21:02:00 Test Item Value Reference Range Interpretation Comments MAGNESIUM (BEAKER) (test code = 2.0 mg/dL 1.6-2.6 627) [id number] 20:58:00 Test Item Value Reference Range Interpretation [...] mechanical heart valves.CBC W/PLT COUNT & AUTO [id number] 20:46:00 Test Item Value Reference Range Interpretation [...] PERCENT (BEAKER) (test code = 2801) CRITICAL [id number] 20:19:22HaPapito manning MD 12/26/2018 3:29 PMCritical CarePerformed [...] or surrogate and interpretation of cardiac output measurements.[facility] CenterTreadmill tolerance(Non-Nuclear Treadmill)2018-11-23 15:05:04Interface, External Ris [...] by MD MARTA, INDRA ([id number]) on 11/23/2018 3:05:01PMJacobs Medical CenterPOCT-GLUCOSE [id number] 11:57:00 Test Item Value Reference Range Interpretation Comments POC-GLUCOSE METER 377 mg/dL 70-110 H TESTED AT [address]) (test code = [facility] 1538) [address] POCT-GLUCOSE [id number] 09:11:00 Test Item Value Reference Range Interpretation Comments POC-GLUCOSE METER 95 mg/dL 70-110 TESTED AT [address]) (test code = [facility] [address] 1538) POCT-GLUCOSE [id number] 06:53:00 Test Item Value Reference Range Interpretation Comments POC-GLUCOSE METER 288 mg/dL 70-110 H TESTED AT [address]) (test code = [facility] 1538) [address] COMPREHENSIVE METABOLIC [id number] 01:54:00 Test Item Value Reference Range Interpretation [...] S NOT APPLICABLE FOR DIALYSIS PATIEN TS. [id number] 01:49:00 Test Item Value Reference Range Interpretation Comments ACTIVATED CLOTTING TIME 142 sec Refe rence Range: (BEAKER) (test code = 74-137 seconds, 441) Baseline/TESTED AT [facility] 6720 [facility] 7703 0 B-TYPE NATRIURETIC FACTOR (BNP)2018-11-13 01:42:00 Test Item Value Reference Range Interpretation Comments B-TYPE NATRIURETIC PEPTIDE 1151 pg/mL 0-100 H (BEAKER) (test code = 700) URINALYSIS W/ [id number] 01:40:00 Test Item Value Reference Range Interpretation [...] = 516) SOURCE(BEAKER) (test code = 2795) [id number] 01:36:00 Test Item Value Reference Range Interpretation Comments MAGNESIUM (BEAKER) 2.0 mg/dL 1.6-2.6 Specimen slightly (test code = 627) hemolyzed [id number] 01:36:00 Test Item Value Reference Range Interpretation Comments PHOSPHORUS (BEAKER) 4.4 mg/dL 2.3-4.7 Specimen slightly (test code = 604) hemolyzed CBC W/PLT COUNT & AUTO [id number] 01:24:00 Test Item Value Reference Range Interpretation [...] PERCENT (BEAKER) (test code = 2801) CALCIUM, [id number] 01:16:00 Test Item Value Reference Range Interpretation Comments CALCIUM IONIZED (CRISTY) (test 1.10 mmol/L 1.12-1.27 L code = 698) PH, BLOOD (CRISTY) (test code = 7.32 1810) [id number] 23:34:00 Test Item Value Reference Range Interpretation Comments ACTIVATED CLOTTING TIME 164 sec Refe rence Range: (CRISTY) (test code = 74-137 seconds, 441) Baseline/TESTED AT [address] 770 0 [id number] 21:52:00 Test Item Value Reference Range Interpretation Comments ACTIVATED CLOTTING TIME 191 sec Refe rence Range: (CRISTY) (test code = 74-137 seconds, 441) Baseline/TESTED AT [address] 7703 0 POCT-GLUCOSE [id number] 21:33:00 Test Item Value Reference Range Interpretation Comments POC-GLUCOSE METER 294 mg/dL 70-110 H TESTED AT [place] [address] ([facility]) (test code = [facility] 1538) [address] C. DIFFICILE GDH [id number] 20:08:00 Test Item Value Reference Range Interpretation Comments CDT TOXIN (test code Negative Negative = [id number]) CDT GDH ANTIGEN Positive Negative A C. difficile present but (test code = toxin not detec elva. [id number]) Indicates colon ization with non-toxige alexis strain [...] of kit performance was done by the [facility] prior to clinical use.[id number] 17:58:00 Test Item Value Reference Range Interpretation Comments ACTIVATED CLOTTING TIME 290 sec Refe rence Range: (BEOJ) (test code = 74-137 seconds, 441) Baseline/TESTED AT [address] [address] 0 [id number] 16:57:00 Test Item Value Reference Range Interpretation Comments ACTIVATED CLOTTING TIME 263 sec Refe rence Range: (BEAKER) (test code = 74-137 seconds, 441) Baseline/TESTED AT [facility] 6720 [facility] 7703 0 [id number] 16:20:00 Test Item Value Reference Range Interpretation Comments ACTIVATED CLOTTING TIME 252 sec Refe rence Range: (BEAKER) (test code = 74-137 seconds, 441) Baseline/TESTED AT [address] [address] 0 PET, CARDIAC PERFUSION MULTIPLE STUDIES, REST AND [id number] 15:26:00 Reason for exam:->eval chest pain, ischemiaFINAL REPORT PROCEDURE: MYOCARDIAL PERFUSION PET IMAGING (Rest/Stress)CPT CODE: 14598 INDICATION: Evaluate extent of known CAD, chest [...] rest.Symptoms: Chest discomfort, nausea, fatigue (Treatment was npqfumggjcevp233ab IV).Perfusion: There is an absence of perfusionin [...] MDReport Verified Date/Time: 11/12/2018 15:26:40 Reading Location: [place] [id number] Reading Room N myocardial perfusion PET (rest and stress)2018-11-12 15:26:00Interface, External Ris In - 11/12/2018 3:28 PM CDTFINAL REPORT PROCEDURE: MYOCARDIAL PERFUSION PET IMAGING (Rest/Stress)CPT CODE: 32574 INDICATION: Evaluate extent of known CAD, chest [...] rest.Symptoms: Chest discomfort, nausea, fatigue (Treatment was vdwcmatfuhkrl495sk IV).Perfusion: There is an absence of perfusion [...] MDReport Verified Date/Time: 11/12/2018 15:26:40 Reading Location: [address] Reading Room [facility] [id number] 10:22:00 Test Item Value Reference Range Interpretation Comments PARTIAL THROMBOPLASTIN TIME 90.3 seconds 22.5-36.0 H (BEAKER) (test code = 760) HEMOGLOBIN [id number] 09:39:00 Test Item Value Reference Range Interpretation Comments HEMOGLOBIN A1C (BEAKER) (test code = 12.0 % 4.3-6.1 H 368) POCT-GLUCOSE [id number] 08:37:00 Test Item Value Reference Range Interpretation Comments POC-GLUCOSE METER 281 mg/dL 70-110 H TESTED AT [facility] 6720 (BEAKER) (test code = [place] 1538) [address] [id number] 05:54:00 Test Item Value Reference Range Interpretation Comments PARTIAL THROMBOPLASTIN TIME 135.4 seconds 22.5-36.0 H (BEAKER) (test code = 760) CALCIUM, [id number] 05:31:00 Test Item Value Reference Range Interpretation Comments CALCIUM IONIZED (BEAKER) (test 1.10 mmol/L 1.12-1.27 L code = 698) PH, BLOOD (BEAKER) (test code = 7.39 1810) COMPREHENSIVE METABOLIC [id number] 04:56:00 Test Item Value Reference Range Interpretation [...] S NOT APPLICABLE FOR DIALYSIS PATIEN TS. [id number] 04:52:00 Test Item Value Reference Range Interpretation Comments MAGNESIUM (BEAKER) 2.0 mg/dL 1.6-2.6 Specimen slightly (test code = 627) hemolyzed [id number] 04:52:00 Test Item Value Reference Range Interpretation Comments PHOSPHORUS (BEAKER) 3.5 mg/dL 2.3-4.7 Specimen slightly (test code = 604) hemolyzed LIPID [id number] 04:52:00 Test Item Value Reference Range Interpretation [...] Very High >=190CBC W/PLT COUNT & AUTO [id number] 04:33:00 Test Item Value Reference Range Interpretation [...] 0-1 PERCENT (BEAKER) (test code = 2801) [id number] 22:22:00 Test Item Value Reference Range Interpretation Comments PARTIAL THROMBOPLASTIN TIME 86.6 seconds 22.5-36.0 H (BEAKER) (test code = 760) POCT-GLUCOSE [id number] 17:14:00 Test Item Value Reference Range Interpretation Comments POC-GLUCOSE METER 158 mg/dL 70-110 H TESTED AT [facility] 6720 (CRISTY) (test code = [place] 1538) [address] Transthoracic 2D echo w/ doppler (cw/pw/color)2018-11-11 16:06:08Ejection FractionSLEH ECHO HEARTLAB MKCKESSON CPACSInterface, External Ris In - 11/11/2018 4:06 PM CDTTransthoracic Echocardiography Report (TTE) Demographics Patient Name HENRIQUE ARECHIGA Date of Study 11/11/2018 ESCOBDEO Gender Female Visit Number [id number] Race Room Number 6102 Number Date of 1940 Referring Peyton Choe Physician Age 78 year(s) Print Buyer Sly Sims RDCS Marketing Researcher Amber Kaplan RDCS Interpreting Garry Goodwin Physician [...] CO: 4.03 l/min LVOT CI: 2.37 l/min/m^2[facility] HospitalAPTT2019-09-22 15:48:00 Test Item Value Reference Range Interpretation Comments PARTIAL THROMBOPLASTIN TIME 64.4 seconds 22.5-36.0 H ([facility]) (test code = 760) POCT-GLUCOSE [id number] 12:41:00 Test Item Value Reference Range Interpretation Comments POC-GLUCOSE METER 275 mg/dL 70-110 H TESTED AT [facility] 6720 ([facility]) (test code = [place] [address]) [address] RAD, CHEST, 1 VIEW, NON [id number] 09:33:00Reason for exam:->chest painShould this be performed at the bedside?->YesFINAL REPORT Comparison: 08/14/2018 TECHNIQUE: Single view of the chest FINDINGS: Trace bilateral pleural effusions. Lungs otherwise grossly clear. Cardiac silhouette is prominent. Aortic calcifications are seen. No acute skeletal abnormality. Signed: Terry Sauer Verified Date/Time: 11/11/2018 09:33:09 Reading Location: [facility] B1 C013T Transitional Reading Room Electr onically [...] acidosis, acute neurological disease, and persistent tachyarrhythmia.POCT-GLUCOSE [id number] 08:57:00 Test Item Value Reference Range Interpretation Comments POC-GLUCOSE METER 321 mg/dL 70-110 H Notified R Colin BUENO/TESTED (BEAKER) (test code = AT [facility] 7703 0 TROPONIN [id number] 08:29:00 Test Item Value Reference Range Interpretation [...] acute neurological disease, and persistent tachyarrhythmia.BASIC METABOLIC [id number] 08:26:00 Test Item Value Reference Range Interpretation [...] APPLICABLE FOR DIALYSIS PATIEN TS. Hepatic function [id number] 08:22:00 Test Item Value Reference Range Interpretation Comments Protein, Total (test code 7.3 6.0- 8.3 gm/dL Specimen slightly = 2885-2) hemolyzed Albumin (test code = 3.9 g/dL 3.5-5 Specime n slightly 19626-1) hemolyzed Total Bilirubin (test 0.5 mg/dL 0.2-1.2 [...] hemolyzed Lab Interpretation (test Normal code = 84504-5) [facility] CenterMAGN[facility]IUM2019-[facility] 08:22:00 Test Item Value Reference Range Interpretation Comments MAGNESIUM (BEAKER) 2.2 mg/dL 1.6-2.6 Specimen slightly (test code = 627) hemolyzed HEPATIC FUNCTION [id number] 08:22:00 Test Item Value Reference Range Interpretation [...] = 700) CBC W/PLT COUNT & AUTO [id number] 07:04:00 Test Item Value Reference Range Interpretation [...] (BEAKER) (test code = 2801) TSH/T4 if [id number] 06:39:00 Test Item Value Reference Range Interpretation Comments TSH (test code = 22483-9) 1.17 0.35- 4.94 uIU/mL Lab Interpretation (test code = Normal 74492-6) [facility] CenterTSH/FREE T4 IF [id number] 06:39:00 Test Item Value Reference Range Interpretation Comments THYROID STIMULATING HORMONE 1.17 uIU/mL 0.35-4.94 (BEAKER) (test code = 772) [id number] 05:38:00 Test Item Value Reference Range Interpretation [...] is2.5-3.5 for patients wiht mechanical heart valves.POCT-GLUCOSE [id number] 12:11:00 Test Item Value Reference Range Interpretation Comments POC-GLUCOSE METER 111 mg/dL 70-110 H TESTED AT [facility] 6720 (BEAKER) (test code = [place] 1538) [address] CBC W/PLT COUNT & AUTO [id number] 10:11:00 Test Item Value Reference Range Interpretation [...] PERCENT (BEAKER) (test code = 2801) POCT-GLUCOSE [id number] 07:46:00 Test Item Value Reference Range Interpretation Comments POC-GLUCOSE METER 79 mg/dL 70-110 TESTED AT [place] [address] ([facility]) (test code = [facility] [address] 1538) BASIC METABOLIC [id number] 06:22:00 Test Item Value Reference Range Interpretation [...] NOT APPLICABLE FOR DIALYSIS PATIEN TS. POCT-GLUCOSE [id number] 20:51:00 Test Item Value Reference Range Interpretation Comments POC-GLUCOSE METER 176 mg/dL 70-110 H TESTED AT [place] [address] ([facility]) (test code = [facility] 1538) [id number] POCT-GLUCOSE [id number] 18:25:00 Test Item Value Reference Range Interpretation Comments POC-GLUCOSE METER 84 mg/dL 70-110 TESTED AT [place] [address] ([facility] (test code = [facility] [address] 1538) POCT-GLUCOSE [id number] 12:54:00 Test Item Value Reference Range Interpretation Comments POC-GLUCOSE METER 111 mg/dL 70-110 H TESTED AT [place] [address] (BEAKER) (test code = [facility] 1538) 72669 POCT-GLUCOSE [id number] 08:25:00 Test Item Value Reference Range Interpretation Comments POC-GLUCOSE METER 105 mg/dL 70-110 TESTED AT [place] [address] ([facility] (test code = [facility] 1538) 25175 BASIC METABOLIC [id number] 06:26:00 Test Item Value Reference Range Interpretation [...] NOT APPLICABLE FOR DIALYSIS PATIEN TS. POCT-GLUCOSE [id number] 04:25:00 Test Item Value Reference Range Interpretation Comments POC-GLUCOSE METER 81 mg/dL 70-110 TESTED AT [place] [address] (BEAKER) (test code = [facility] 38872 1538) POCT-GLUCOSE [id number] 21:58:00 Test Item Value Reference Range Interpretation Comments POC-GLUCOSE METER 164 mg/dL 70-110 H TESTED AT [place] [address] (BEAKER) (test code = JODY Gipson [facility] 1538) 30445 POCT-GLUCOSE [id number] 18:38:00 Test Item Value Reference Range Interpretation Comments POC-GLUCOSE METER 98 mg/dL 70-110 TESTED AT [place] [address] (BEAKER) (test code = JOSEPHMI Brandan [facility] [address]40 1538) POCT-GLUCOSE [id number] 13:14:00 Test Item Value Reference Range Interpretation Comments POC-GLUCOSE METER 105 mg/dL 70-110 TESTED AT [place] [address] (BEAKER) (test code = JODY Gipson [facility] 1538) 55598 POCT-GLUCOSE [id number] 08:12:00 Test Item Value Reference Range Interpretation Comments POC-GLUCOSE METER 115 mg/dL 70-110 H TESTED AT [place] [address] ([facility] (test code = JOSEPHMI Brandan [facility] 1538) 24594 BASIC METABOLIC [id number] 07:37:00 Test Item Value Reference Range Interpretation [...] NOT APPLICABLE FOR DIALYSIS PATIEN TS. POCT-GLUCOSE [id number] 07:22:00 Test Item Value Reference Range Interpretation Comments POC-GLUCOSE METER 128 mg/dL 70-110 H TESTED AT [place] [address] ([facility]) (test code = JODY Gipson [facility] 1538) 25860 POCT-GLUCOSE [id number] 04:05:00 Test Item Value Reference Range Interpretation Comments POC-GLUCOSE METER 95 mg/dL 70-110 TESTED AT [place] [address] ([facility]) (test code = JODY Gipson [facility] [address] 1538) POCT-GLUCOSE [id number] 04:05:00 Test Item Value Reference Range Interpretation Comments POC-GLUCOSE METER 68 mg/dL 70-110 L TESTED AT [place] [address] ([facility]) (test code = JODY Gipson [facility] 59767 1538) POCT-GLUCOSE [id number] 04:05:00 Test Item Value Reference Range Interpretation Comments POC-GLUCOSE METER 52 mg/dL 70-110 L TESTED AT [place] [address] ([facility]) (test code = JODY Gipson [facility] 31836 1538) POCT-GLUCOSE [id number] 22:26:00 Test Item Value Reference Range Interpretation Comments POC-GLUCOSE METER 132 mg/dL 70-110 H TESTED AT [place] [address] ([facility]) (test code = JODY Gipson [facility] 1538) 72617 POCT-GLUCOSE [id number] 19:58:00 Test Item Value Reference Range Interpretation Comments POC-GLUCOSE METER 134 mg/dL 70-110 H TESTED AT [place] [address] ([facility]) (test code = JODY Gipson [facility] 1538) 16298 POCT-GLUCOSE [id number] 13:11:00 Test Item Value Reference Range Interpretation Comments POC-GLUCOSE METER 148 mg/dL 70-110 H TESTED AT [place] [address] ([facility]) (test code = JODY Gipson [facility] 1538) 98600 POCT-GLUCOSE [id number] 12:30:00 Test Item Value Reference Range Interpretation Comments POC-GLUCOSE METER 183 mg/dL 70-110 H TESTED AT [place] [address] ([facility]) (test code = JODY Gipson [facility] 1538) 25699 CBC W/PLT COUNT & AUTO [id number] 10:37:00 Test Item Value Reference Range Interpretation [...] PERCENT (BEAKER) (test code = 2801) POCT-GLUCOSE [id number] 08:09:00 Test Item Value Reference Range Interpretation Comments POC-GLUCOSE METER 99 mg/dL 70-110 TESTED AT [place] [address] ([facility]) (test code = JODY Gipson [facility] 95581 1538) BASIC METABOLIC [id number] 05:41:00 Test Item Value Reference Range Interpretation [...] NOT APPLICABLE FOR DIALYSIS PATIEN TS. POCT-GLUCOSE [id number] 21:42:00 Test Item Value Reference Range Interpretation Comments POC-GLUCOSE METER 171 mg/dL 70-110 H TESTED AT [facility] [address] ([facility] ([facility] = [facility] 1538) 32865 POCT-GLUCOSE [id number] 18:03:00 Test Item Value Reference Range Interpretation Comments POC-GLUCOSE METER 123 mg/dL 70-110 H TESTED AT [facility] [address] ([facility]) (test code = [facility] Brandan [facility] 1538) 33131 POCT-GLUCOSE [id number] 12:52:00 Test Item Value Reference Range Interpretation Comments POC-GLUCOSE METER 167 mg/dL 70-110 H TESTED AT [facility] [address] ([facility]) (test code = [facility] Brandan [facility] 1538) 94805 POCT-GLUCOSE [id number] 09:05:00 Test Item Value Reference Range Interpretation Comments POC-GLUCOSE METER 128 mg/dL 70-110 H TESTED AT [facility] 67[address] (BEAKER) (test code = JODY IYER [place] 1533) [address] CT, PELVIS, WO [id number] 08:42:00FINAL REPORT CT pelvis without contrast HISTORY: [...] MDReport Verified Date/Time: 08/16/2018 08:42:53 Reading Location: [facility] Radiology Reading Room BASIC METABOLIC [id number] 05:58:00 Test Item Value Reference Range Interpretation [...] NOT APPLICABLE FOR DIALYSIS PATIEN TS. POCT-GLUCOSE [id number] 03:05:00 Test Item Value Reference Range Interpretation Comments POC-GLUCOSE METER 157 mg/dL 70-110 H TESTED AT [place] [address] ([facility]) (test code = JODY Gipson [facility] 1538) 77860 POCT-GLUCOSE [id number] 20:57:00 Test Item Value Reference Range Interpretation Comments POC-GLUCOSE METER 106 mg/dL 70-110 TESTED AT [place] [address] ([facility]) (test code = [facility] 1538) 62130 POCT-GLUCOSE [id number] 18:13:00 Test Item Value Reference Range Interpretation Comments POC-GLUCOSE METER 237 mg/dL 70-110 H TESTED AT [place] [address] ([facility]) (test code = [facility] 1538) 71070 POCT-GLUCOSE [id number] 13:47:00 Test Item Value Reference Range Interpretation Comments POC-GLUCOSE METER 172 mg/dL 70-110 H TESTED AT [place] [address] ([facility]) (test code = [facility] 1538) 36992 POCT-GLUCOSE [id number] 08:50:00 Test Item Value Reference Range Interpretation Comments POC-GLUCOSE METER 155 mg/dL 70-110 H TESTED AT [place] [address] ([facility]) (test code = [facility] Brandan [facility] 1538) 26257 BASIC METABOLIC [id number] 06:36:00 Test Item Value Reference Range Interpretation [...] 8.4-10.2 L (test code = 697) EGFR ([facility] (test 14 mL/min/1.73 ESTIMA ELVA GFR IS code = 1092) sq m NOT ACCURATE CREATININE CLEARANCE IN PREDICTING GLOMERULAR FILTRATION RATE . ESTIMATED GFR I S NOT APPLICABLE FOR DIALYSIS PATIEN TS. POCT-GLUCOSE [id number] 22:53:00 Test Item Value Reference Range Interpretation Comments POC-GLUCOSE METER 231 mg/dL 70-110 H TESTED AT [place] [address] ([facility]) (test code = [facility] 1538) 87671 POCT-GLUCOSE [id number] 17:51:00 Test Item Value Reference Range Interpretation Comments POC-GLUCOSE METER 169 mg/dL 70-110 H TESTED AT [place] [address] ([facility]) (test code = [facility] 1538) 13520 RESPIRATORY PANEL [id number] 15:45:00 Test Item Value Reference Range Interpretation [...] decisions. This sample was tested at the [facility] using the [employer] Technologies[employer] Respiratory Panel. It is FDA cleared and has been verified and approved by the [facility] for clinical use on nasopharyngeal swab specimens.The performance of the FilmArrayRP has not been established in individuals who received influenza vaccine. Recent administration ofa nasal influenza vaccine may cause false positive results for Influenza A and/orInfluenza B.URINALYSIS W/ REFLEX URINE [id number] 12:32:00 Test Item Value Reference Range Interpretation [...] 1578) SOURCE(BEAKER) (test code = 2795) POCT-GLUCOSE [id number] 12:29:00 Test Item Value Reference Range Interpretation Comments POC-GLUCOSE METER 222 mg/dL 70-110 H TESTED AT [facility] 6720 (BEAKER) (test code = JODY IYER [place] 1538) 16051 CBC W/PLT COUNT & AUTO [id number] 10:12:00 Test Item Value Reference Range Interpretation [...] MDReport Verified Date/Time: 08/14/2018 09:50:21 Reading Location: [facility] Radiology Reading Room POCT-GLUCOSE [id number] 08:20:00 Test Item Value Reference Range Interpretation Comments POC-GLUCOSE METER 126 mg/dL 70-110 H TESTED AT [facility] 67[address] (BEAKER) (test code = [facility] 1538) 32767 COMPREHENSIVE METABOLIC [id number] 07:13:00 Test Item Value Reference Range Interpretation [...] S NOT APPLICABLE FOR DIALYSIS PATIEN TS. [id number] 06:59:00 Test Item Value Reference Range Interpretation Comments PHOSPHORUS (BEAKER) (test code = 2.3 mg/dL 2.3-4.7 604) [id number] 06:59:00 Test Item Value Reference Range Interpretation Comments MAGNESIUM (BEAKER) (test code = 2.0 mg/dL 1.6-2.6 627) CALCIUM, [id number] 06:47:00 Test Item Value Reference Range Interpretation Comments CALCIUM IONIZED (BEAKER) (test 1.04 mmol/L 1.12-1.27 L code = 698) PH, BLOOD (BEAKER) (test code = 7.38 1810) POCT-GLUCOSE [id number] 23:29:00 Test Item Value Reference Range Interpretation Comments POC-GLUCOSE METER 196 mg/dL 70-110 H TESTED AT [facility] 6720 (BEAKER) (test code = JO[facility]PH[facility] VENEGAS 1538) 25011 POCT-GLUCOSE [id number] 17:42:00 Test Item Value Reference Range Interpretation Comments POC-GLUCOSE METER 179 mg/dL 70-110 H TESTED AT [place] [address] (BEAKER) (test code = JODY Gipson [place] 1538) 67848 POCT-GLUCOSE [id number] 12:19:00 Test Item Value Reference Range Interpretation Comments POC-GLUCOSE METER 189 mg/dL 70-110 H TESTED AT [place] [address] (BEAKER) (test code = JODY Gipson [place] 1538) 72761 POCT-GLUCOSE [id number] 08:34:00 Test Item Value Reference Range Interpretation Comments POC-GLUCOSE METER 119 mg/dL 70-110 H TESTED AT [place] [address] (BEAKER) (test code = JODY Gipson [facility] 1538) 72502 COMPREHENSIVE METABOLIC [id number] 02:54:00 Test Item Value Reference Range Interpretation [...] S NOT APPLICABLE FOR DIALYSIS PATIEN TS. [id number] 02:48:00 Test Item Value Reference Range Interpretation Comments PHOSPHORUS (BEAKER) (test code = 2.2 mg/dL 2.3-4.7 L 604) [id number] 02:48:00 Test Item Value Reference Range Interpretation Comments MAGNESIUM (BEAKER) (test code = 1.5 mg/dL 1.6-2.6 L 627) CALCIUM, [id number] 02:32:00 Test Item Value Reference Range Interpretation Comments CALCIUM IONIZED (BEAKER) (test 0.93 mmol/L 1.12-1.27 L code = 698) PH, BLOOD (BEAKER) (test code = 7.53 1810) CBC W/PLT COUNT & AUTO [id number] 02:31:00 Test Item Value Reference Range Interpretation [...] PERCENT (BEAKER) (test code = 2801) POCT-GLUCOSE [id number] 02:17:00 Test Item Value Reference Range Interpretation Comments POC-GLUCOSE METER 97 mg/dL 70-110 TESTED AT [place] [address] [facility] (test code = [facility] Brandan [facility] [address] 1538) POCT-GLUCOSE [id number] 21:04:00 Test Item Value Reference Range Interpretation Comments POC-GLUCOSE METER 147 mg/dL 70-110 H TESTED AT [place] [address] ([facility]) (test code = [facility] Brandan [facility] 1538) 35792 POCT-GLUCOSE [id number] 17:42:00 Test Item Value Reference Range Interpretation Comments POC-GLUCOSE METER 172 mg/dL 70-110 H TESTED AT [place] [address] (BEAKER) (test code = [facility] 1538) 35875 POCT-GLUCOSE [id number] 12:05:00 Test Item Value Reference Range Interpretation Comments POC-GLUCOSE METER 124 mg/dL 70-110 H TESTED AT [place] [address] (BEAKER) (test code = [facility] Brandan [facility] 1538) 83347 POCT-GLUCOSE [id number] 07:37:00 Test Item Value Reference Range Interpretation Comments POC-GLUCOSE METER 94 mg/dL 70-110 TESTED AT [place] [address] ([facility]) (test code = JODY Gipson [facility] 27849 1538) RAD, CHEST, 1 VIEW, NON [id number] 04:50:00Reason for exam:->SOBShould this be performed at [...] [place] Verified Date/Time: 08/12/2018 04:50:01 Reading Location: [address] Reading Room POCT-GLUCOSE METER 2018-08-12 04:39:00 Test Item Value Reference Range Interpretation Comments POC-GLUCOSE METER 107 mg/dL 70-110 TESTED AT [place] [id number] ([facility]) (test code = JODY Gipson [facility] 1538) 31854 COMPREHENSIVE METABOLIC [id number] 04:16:00 Test Item Value Reference Range Interpretation [...] S NOT APPLICABLE FOR DIALYSIS PATIEN TS. [id number] 04:11:00 Test Item Value Reference Range Interpretation Comments PHOSPHORUS (BEAKER) (test code = 2.9 mg/dL 2.3-4.7 604) [id number] 04:11:00 Test Item Value Reference Range Interpretation Comments MAGNESIUM (BEAKER) (test code = 1.9 mg/dL 1.6-2.6 627) CBC W/PLT COUNT & AUTO [id number] 03:57:00 Test Item Value Reference Range Interpretation [...] PERCENT (BEAKER) (test code = 2801) CALCIUM, [id number] 03:25:00 Test Item Value Reference Range Interpretation Comments CALCIUM IONIZED (BEAKER) (test 1.10 mmol/L 1.12-1.27 L code = 698) PH, BLOOD (BEAKER) (test code = 7.43 1810) POCT-GLUCOSE [id number] 00:03:00 Test Item Value Reference Range Interpretation Comments POC-GLUCOSE METER 122 mg/dL 70-110 H TESTED AT [facility] 6720 (BEAKER) (test code = JODY [place] 1538) [address] POCT-GLUCOSE [id number] 21:32:00 Test Item Value Reference Range Interpretation Comments POC-GLUCOSE METER 104 mg/dL 70-110 TESTED AT [facility] 6720 (BEAKER) (test code = JODY [place] 1538) 28422 POCT-GLUCOSE [id number] 17:51:00 Test Item Value Reference Range Interpretation Comments POC-GLUCOSE METER 151 mg/dL 70-110 H TESTED AT [facility] 6720 (BEAKER) (test code = JODY Gipson [facility] 1538) 73184 BASIC METABOLIC [id number] 16:24:00 Test Item Value Reference Range Interpretation [...] S NOT APPLICABLE FOR DIALYSIS PATIEN TS. [id number] 16:22:00 Test Item Value Reference Range Interpretation Comments MAGNESIUM (BEAKER) 1.8 mg/dL 1.6-2.6 Specimen slightly (test code = 627) hemolyzed POCT-GLUCOSE [id number] 11:45:00 Test Item Value Reference Range Interpretation Comments POC-GLUCOSE METER 141 mg/dL 70-110 H TESTED AT [facility] 6720 (BEAKER) (test code = [facility] Brandan [facility] 1538) 72060 POCT-GLUCOSE [id number] 07:51:00 Test Item Value Reference Range Interpretation Comments POC-GLUCOSE METER 112 mg/dL 70-110 H TESTED AT [facility] 6720 (BEAKER) (test code = [facility] Brandan [facility] 1538) 27697 BASIC METABOLIC [id number] 05:18:00 Test Item Value Reference Range Interpretation [...] S NOT APPLICABLE FOR DIALYSIS PATIEN TS. [id number] 05:12:00 Test Item Value Reference Range Interpretation Comments MAGNESIUM (BEAKER) 2.0 mg/dL 1.6-2.6 Specimen moderately (test code = 627) hemolyzed CBC W/PLT COUNT & AUTO [id number] 04:19:00 Test Item Value Reference Range Interpretation [...] = 2801) RAD, CHEST, 1 VIEW, NON [id number] 03:48:00Reason for exam:->SOBShould this be performed at the bedside?->YesFINAL REPORT RAD, CHEST, 1 VIEW, NON DEPT INDICATION: SOB COMPARISON: Prior day's exam FINDINGS: Portable frontal view of the chest. IMPRESSION: Support Lines: Stable. Lungs and pleura: Unchanged airspace and pleural opacities. No pneumothorax.Heart and mediastinum: Stable contours. Additional findings: None. Signed: Socorro Méndez Verified Date/Time: 08/11/2018 03:48:09 -GLUCOSE [id number] 23:26:00 Test Item Value Reference Range Interpretation Comments POC-GLUCOSE METER 101 mg/dL 70-110 TESTED AT [facility] 6720 (BEAKER) (test code = JODY Gipson [place] 1538) [address]106 POCT-GLUCOSE [id number] 18:11:00 Test Item Value Reference Range Interpretation Comments POC-GLUCOSE METER 171 mg/dL 70-110 H TESTED AT [facility] 6720 (BEAKER) (test code = JODY Gipson [place] 1538) [address] BASIC METABOLIC [id number] 16:14:00 Test Item Value Reference Range Interpretation [...] S NOT APPLICABLE FOR DIALYSIS PATIEN TS. [id number] 16:07:00 Test Item Value Reference Range Interpretation Comments MAGNESIUM (BEAKER) (test code = 2.0 mg/dL 1.6-2.6 627) LACTIC ACID, [id number] 15:23:00 Test Item Value Reference Range Interpretation Comments LACTATE BLOOD ARTERIAL (2) 0.9 mmol/L 0.5-2.2 (BEAKER) (test code = 2874) RAD, CHEST, 1 VIEW, NON [id number] 15:07:00Reason for exam:- >hypoxemiaShould this be performed [...] MDReport Verified Date/Time: 08/10/2018 15:07:53 Reading Location: [address] Consult Reading Room BLOOD GAS, [id number] 14:53:00 Test Item Value Reference Range Interpretation [...] (test code = 1819) 44.0 % POCT-GLUCOSE [id number] 12:20:00 Test Item Value Reference Range Interpretation Comments POC-GLUCOSE METER 208 mg/dL 70-110 H TESTED AT [facility] 6720 (BEAKER) (test code = JODY [place] 7418) 39599 CBC W/PLT COUNT & AUTO [id number] 08:56:00 Test Item Value Reference Range Interpretation [...] MDReport Verified Date/Time: 08/10/2018 08:03:28 Reading Location: [facility] Radiology Reading Room POCT- GLUCOSE [id number] 07:51:00 Test Item Value Reference Range Interpretation Comments POC-GLUCOSE METER 129 mg/dL 70-110 H TESTED AT [facility] 6720 (BEAKER) (test code = JODY [place] 1538) 45684 POCT-GLUCOSE [id number] 06:38:00 Test Item Value Reference Range Interpretation Comments POC-GLUCOSE METER 193 mg/dL 70-110 H TESTED AT [facility] 6720 (BEAKER) (test code = JODY Gipson [place] 1538) 12707 POCT-GLUCOSE [id number] 05:48:00 Test Item Value Reference Range Interpretation Comments POC-GLUCOSE METER 67 mg/dL 70-110 L TESTED AT [facility] 6720 (BEAKER) (test code = JODY Gipson [facility] [address] 1538) BASIC METABOLIC [id number] 05:07:00 Test Item Value Reference Range Interpretation [...] S NOT APPLICABLE FOR DIALYSIS PATIEN TS. [id number] 05:06:00 Test Item Value Reference Range Interpretation Comments MAGNESIUM (BEAKER) 2.0 mg/dL 1.6-2.6 Specimen slightly (test code = 627) hemolyzed POCT-GLUCOSE [id number] 20:02:00 Test Item Value Reference Range Interpretation Comments POC-GLUCOSE METER 95 mg/dL 70-110 TESTED AT [facility] 6720 (BEAKER) (test code = JODY Gipson [facility] [address]75 1538) POCT-GLUCOSE [id number] 17:35:00 Test Item Value Reference Range Interpretation Comments POC-GLUCOSE METER 144 mg/dL 70-110 H TESTED AT [facility] 6720 (BEAKER) (test code = JODY Gipson [facility] 1538) 07218 POCT-GLUCOSE [id number] 13:42:00 Test Item Value Reference Range Interpretation Comments POC-GLUCOSE METER 180 mg/dL 70-110 H TESTED AT [place] [address] (BEAKER) (test code = JODY Gipson [facility] 1538) 66980 POCT-GLUCOSE [id number] 07:56:00 Test Item Value Reference Range Interpretation Comments POC-GLUCOSE METER 206 mg/dL 70-110 H TESTED AT [place] [address] (BEAKER) (test code = JODY Gipson [facility] 1538) 16216 CBC W/PLT COUNT & AUTO [id number] 06:25:00 Test Item Value Reference Range Interpretation [...] (BEAKER) (test code = 2801) BASIC METABOLIC [id number] 06:22:00 Test Item Value Reference Range Interpretation [...] PATIEN TS. RAD, CHEST, 1 VIEW, NON [id number] 05:59:00Reason for exam:->SOBShould this be performed at [...] Socorro Méndez Verified Date/Time: 08/09/2018 05:59:24 POCT-GLUCOSE [id number] 22:05:00 Test Item Value Reference Range Interpretation Comments POC-GLUCOSE METER 254 mg/dL 70-110 H TESTED AT [place] [address] ([facility]) (test code = JODY Gipson [facility] 1538) 11830 POCT-GLUCOSE [id number] 18:33:00 Test Item Value Reference Range Interpretation Comments POC-GLUCOSE METER 271 mg/dL 70-110 H TESTED AT [place] [address] ([facility]) (test code = JODY Gipson [facility] 1538) 32463 RAD, CHEST, 1 VIEW, NON [id number] 15:44:00Reason for exam:->IABP placementShould this be performed [...] Tracey Verified Date/Time: 08/08/2018 15:44:27 [facility], CHEST, 1 VIEW, NON [id number] 13:42:00Reason for exam:->IABP positionShould this be performed [...] Tracey Verified Date/Time: 08/08/2018 13:42:06 Reading Location: [facility] Mammo Reading Room POCT-GLUCOSE [id number] 13:28:00 Test Item Value Reference Range Interpretation Comments POC-GLUCOSE METER 294 mg/dL 70-110 H TESTED AT [place] [address] ([facility]) (test code = JODY [place] 1538) [address] RAD, CHEST, 1 VIEW, NON [id number] 08:20:00Reason for exam:->SOBShould this be performed at [...] [place]ort Verified Date/Time: 08/08/2018 08:20:51 Reading Location: [facility] Radiology Reading Room POCT-GLUCOSE [id number] 07:57:00 Test Item Value Reference Range Interpretation Comments POC-GLUCOSE METER 286 mg/dL 70-110 H TESTED AT [facility] (BEAKER) (test code = JODY [place] 1538) [address] CBC W/PLT COUNT & AUTO [id number] 05:11:00 Test Item Value Reference Range Interpretation [...] H PERCENT (BEAKER) (test code = 2801) [id number] 04:43:00 Test Item Value Reference Range Interpretation Comments MAGNESIUM (BEAKER) (test code = 2.3 mg/dL 1.6-2.6 627) BASIC METABOLIC [id number] 04:43:00 Test Item Value Reference Range Interpretation [...] NOT APPLICABLE FOR DIALYSIS PATIEN TS. POCT-GLUCOSE [id number] 22:27:00 Test Item Value Reference Range Interpretation Comments POC-GLUCOSE METER 279 mg/dL 70-110 H TESTED AT [facility] (BEAKER) (test code = JODY Brandan [place] 1538) [address] BASIC METABOLIC [id number] 22:17:00 Test Item Value Reference Range Interpretation [...] S NOT APPLICABLE FOR DIALYSIS PATIEN TS. [id number] 22:13:00 Test Item Value Reference Range Interpretation Comments MAGNESIUM (BEAKER) (test code = 2.1 mg/dL 1.6-2.6 627) [id number] 19:37:00 Test Item Value Reference Range Interpretation Comments ACTIVATED CLOTTING TIME 268 sec TEST ED AT [place] [address] ([facility]) (test code = [place] [address]) [address] [id number] 18:30:00 Test Item Value Reference Range Interpretation Comments ACTIVATED CLOTTING TIME 257 sec TEST ED AT [place] [address] ([facility]) (test code = [place] [address]) [address] [id number] 17:58:00 Test Item Value Reference Range Interpretation Comments ACTIVATED CLOTTING TIME 219 sec TEST ED AT [place] [address] ([facility]) (test code = [place] [address]) [address] [id number] 17:58:00 Test Item Value Reference Range Interpretation Comments ACTIVATED CLOTTING TIME > sec OUTS [employer] (BEAKER) (test code = RANGET ESTED AT [place] [address] 441) [facility] [address] POCT-GLUCOSE [id number] 12:23:00 Test Item Value Reference Range Interpretation Comments POC-GLUCOSE METER 169 mg/dL 70-110 H TESTED AT [place] [address] ([facility]) (test code = JODY Gipson [facility] 1538) [address] RAD, CHEST, 1 VIEW, NON [id number] 09:10:00Reason for exam:->SOBShould this be performed at the bedside?->YesFINAL REPORT Chest dated 08/07/2018 COMPARISON: 08/06/2018 Clinical Information: SOB Comment: Heart is enlarged. Pulmonary vasculature is indistinct. Interstitial disease is seen bilaterally suggestive of vascular congestion or pulmonary edema. There is small bilateral pleural effusion. IMPRESSION: No interval change. Signed: Yuan Arango MDReport Verified Date/Time: 08/07/2018 09:10:23 Reading Location: [facility] Radiology Reading Room POCT-GLUCOSE [id number] 07:49:00 Test Item Value Reference Range Interpretation Comments POC-GLUCOSE METER 165 mg/dL 70-110 H TESTED AT [place] [address] ([facility]) (test code = JODY Gipson [facility] 1538) [address] COMPREHENSIVE METABOLIC [id number] 06:00:00 Test Item Value Reference Range Interpretation [...] S NOT APPLICABLE FOR DIALYSIS PATIEN TS. [id number] 05:56:00 Test Item Value Reference Range Interpretation Comments PHOSPHORUS (BEAKER) (test code = 2.9 mg/dL 2.3-4.7 604) [id number] 05:56:00 Test Item Value Reference Range Interpretation Comments MAGNESIUM (BEAKER) (test code = 2.0 mg/dL 1.6-2.6 627) CBC W/PLT COUNT & AUTO [id number] 05:42:00 Test Item Value Reference Range Interpretation [...] PERCENT (BEAKER) (test code = 2801) CALCIUM, [id number] 05:32:00 Test Item Value Reference Range Interpretation Comments CALCIUM IONIZED (BEAKER) (test 1.12 mmol/L 1.12-1.27 code = 698) PH, BLOOD (BEAKER) (test code = 7.36 1810) POCT-GLUCOSE [id number] 21:35:00 Test Item Value Reference Range Interpretation Comments POC-GLUCOSE METER 143 mg/dL 70-110 H TESTED AT [place] [address] ([facility] (test code = [facility] 1538) [address] POCT-GLUCOSE [id number] 17:31:00 Test Item Value Reference Range Interpretation Comments POC-GLUCOSE METER 105 mg/dL 70-110 TESTED AT [place] [address] ([facility]) (test code = [facility] 1538) [address] POCT-GLUCOSE [id number] 12:46:00 Test Item Value Reference Range Interpretation Comments POC-GLUCOSE METER 159 mg/dL 70-110 H TESTED AT [place] [address] ([facility]) (test code = [facility] 1538) [address] POCT-GLUCOSE [id number] 07:40:00 Test Item Value Reference Range Interpretation Comments POC-GLUCOSE METER 120 mg/dL 70-110 H TESTED AT [facility] 6720 (BEAKER) (test code = [place]ODY [place] 1538) [address] [id number] 04:52:00 Test Item Value Reference Range Interpretation Comments MAGNESIUM (BEAKER) (test code = 1.8 mg/dL 1.6-2.6 627) BASIC METABOLIC [id number] 04:52:00 Test Item Value Reference Range Interpretation [...] PATIEN TS. RAD, CHEST, 1 VIEW, NON [id number] 04:45:00Reason for exam:->SOBShould this be performed at [...] [place] Verified Date/Time: 08/06/2018 04:45:08 Reading Location: [address] Reading Room APTT 2018-08-06 04:31:00 Test Item Value Reference Range Interpretation Comments PARTIAL THROMBOPLASTIN TIME 45.7 seconds 22.5-36.0 H (BEAKER) (test code = 760) 4 hours after the start of continuous infusion and 4 hours after any rate change CBC W/PLT COUNT & AUTO [id number] 04:23:00 Test Item Value Reference Range Interpretation [...] PERCENT (AKER) (test code = 2801) POCT-GLUCOSE [id number] 21:47:00 Test Item Value Reference Range Interpretation Comments POC-GLUCOSE METER 184 mg/dL 70-110 H TESTED AT [facility] ([facility]) (test code = [facility] Bin[address] ATE [facility] 1538) [address] POCT-GLUCOSE [id number] 17:15:00 Test Item Value Reference Range Interpretation Comments POC-GLUCOSE METER 120 mg/dL 70-110 H TESTED AT [place] [address] ([facility]) (test code = [facility] Bin[address] ATE [facility] 1538) [address] POCT-GLUCOSE [id number] 12:00:00 Test Item Value Reference Range Interpretation Comments POC-GLUCOSE METER 226 mg/dL 70-110 H TESTED AT [place] [address] ([facility]) (test code = [facility] [address] ATE [facility] 1538) [address] POCT-GLUCOSE [id number] 07:45:00 Test Item Value Reference Range Interpretation Comments POC-GLUCOSE METER 192 mg/dL 70-110 H TESTED AT [place] [address] ([facility]) (test code = [employer] [address] ATE [facility] 1538) [address] RAD, CHEST, 1 VIEW, NON [id number] 07:45:00Reason for exam:->SOBShould this be performed at [...] Alejo Verified Date/Time: 08/05/2018 07:45:53 Reading Location: [facility] C013V Neuro Reading Room [id number] 06:25:00 Test Item Value Reference Range Interpretation Comments MAGNESIUM (BEAKER) (test code = 1.8 mg/dL 1.6-2.6 627) BASIC METABOLIC [id number] 06:25:00 Test Item Value Reference Range Interpretation [...] PATIEN TS. CBC W/PLT COUNT & AUTO [id number] 05:59:00 Test Item Value Reference Range Interpretation [...] PERCENT (BEAKER) (test code = 2801) POCT-GLUCOSE [id number] 22:07:00 Test Item Value Reference Range Interpretation Comments POC-GLUCOSE METER 183 mg/dL 70-110 H TESTED AT [facility] 6720 (BEAKER) (test code = JODY [place] 1538) [address] POCT-GLUCOSE [id number] 18:23:00 Test Item Value Reference Range Interpretation Comments POC-GLUCOSE METER 174 mg/dL 70-110 H TESTED AT [facility] 6720 (BEAKER) (test code = JODY [place] 1538) [address] C. DIFFICILE GDH [id number] 15:36:00 Test Item Value Reference Range Interpretation Comments CDT TOXIN (test code Negative Negative = [id number]) CDT GDH ANTIGEN Positive Negative A C. difficile present but (test code = toxin not detec elva. [id number]) Indicates colon ization with non-toxige alexis strain or level of tox in below detectable leve ls. No need for enteri c isolation. Sandoval atment is rarely needed ( only when strong clinical suspicion for Clostridium difficile infection) Testing performed by [employer]etr[employer] Rapid Cassette Assay. For GDH, published sensitivity of the assay is 98.7% compared to cytotoxicity testing. For Toxin AB, published sensitivity is 87.8% and specificity 99.4% compared to cytotoxicity testing.Verification of kit performance was done by the [facility] prior to clinical use.URINALYSIS W/ REFLEX URINE [id number] 15:18:00 Test Item Value Reference Range Interpretation [...] 514) SOURCE(BEAKER) (test code = 2795) POCT-GLUCOSE [id number] 13:03:00 Test Item Value Reference Range Interpretation Comments POC-GLUCOSE METER 213 mg/dL 70-110 H TESTED AT [facility] 6720 (BEAKER) (test code = JODY Gipson [facility] 1538) [address] OCCULT BLOOD, [id number] 11:58:00 Test Item Value Reference Range Interpretation Comments FECAL OCCULT BLOOD (BEAKER) (test Positive Negative A code = 618) POCT-GLUCOSE [id number] 08:00:00 Test Item Value Reference Range Interpretation Comments POC-GLUCOSE METER 127 mg/dL 70-110 H TESTED AT [facility] 6720 (BEAKER) (test code = [facility] 1538) [address] TROPONIN [id number] 07:07:00 Test Item Value Reference Range Interpretation [...] and persistent tachyarrhythmia.RAD, CHEST, 1 VIEW, NON [id number] 07:00:00Reason for exam:->SOBShould this be performed at [...] ROACHeport Verified Date/Time: 08/04/2018 07:00:06 Reading Location: [facility] C0[facility] Neuro Reading Room COMPREHENSIVE METABOLIC [id number] 06:56:00 Test Item Value Reference Range Interpretation [...] S NOT APPLICABLE FOR DIALYSIS PATIEN TS. [id number] 06:55:00 Test Item Value Reference Range Interpretation Comments PHOSPHORUS (BEAKER) (test code = 2.8 mg/dL 2.3-4.7 604) [id number] 06:55:00 Test Item Value Reference Range Interpretation Comments MAGNESIUM (BEAKER) (test code = 1.9 mg/dL 1.6-2.6 627) CBC W/PLT COUNT & AUTO [id number] 06:12:00 Test Item Value Reference Range Interpretation [...] [facility] (test code = 2801) CALCIUM, [id number] 05:58:00 Test Item Value Reference Range Interpretation Comments CALCIUM IONIZED ([facility]) (test 1.11 mmol/L 1.12-1.27 L code = 698) PH, BLOOD ([facility]) (test code = 7.38 1810) POCT-GLUCOSE [id number] 22:08:00 Test Item Value Reference Range Interpretation Comments POC-GLUCOSE METER 163 mg/dL 70-110 H TESTED AT [place] [address] ([facility]) (test code = JODY Gipson [facility] 1538) [address] POCT-GLUCOSE [id number] 18:05:00 Test Item Value Reference Range Interpretation Comments POC-GLUCOSE METER 215 mg/dL 70-110 H TESTED AT [place] [address] ([facility]) (test code = [facility] Brandan [facility] 1538) [address] POCT-GLUCOSE [id number] 12:33:00 Test Item Value Reference Range Interpretation Comments POC-GLUCOSE METER 287 mg/dL 70-110 H TESTED AT [place] [address] ([facility]) (test code = JODY Gipson [facility] 1538) [address] TROPONIN [id number] 10:28:00 Test Item Value Reference Range Interpretation Comments TROPONIN I ([facility]) (test code = 56.87 ng/mL 0.00-0.03 [facility]) Troponin I (TnI) levels must be [...] = 380) RAD, CHEST, 1 VIEW, NON [id number] 08:51:00Reason for exam:->SOBShould this be performed at [...] MDReport Verified Date/Time: 08/03/2018 08:51:22 Reading Location: [facility] Radiology Reading Room [id number] 03:08:00 Test Item Value Reference Range Interpretation Comments FERRITIN (BEAKER) (test code = 361) 207 ng/mL 5-275 VITAMIN B12 AND [id number] 03:08:00 Test Item Value Reference Range Interpretation Comments VITAMIN B12 (BEAKER) (test code = 212 pg/mL 213-816 L 774) FOLATE (BEAKER) (test code = 362) 15.1 ng/mL >=7.0 COMPREHENSIVE METABOLIC [id number] 02:38:00 Test Item Value Reference Range Interpretation [...] S NOT APPLICABLE FOR DIALYSIS PATIEN TS. [id number] 02:34:00 Test Item Value Reference Range Interpretation Comments PHOSPHORUS (BEAKER) (test code = 4.7 mg/dL 2.3-4.7 604) [id number] 02:34:00 Test Item Value Reference Range Interpretation [...] 20-55 L (test code = 2590) CALCIUM, [id number] 02:26:00 Test Item Value Reference Range Interpretation Comments CALCIUM IONIZED (BEAKER) (test 1.12 mmol/L 1.12-1.27 code = 698) PH, BLOOD (BEAKER) (test code = 7.27 1810) CBC W/PLT COUNT & AUTO [id number] 02:20:00 Test Item Value Reference Range Interpretation [...] [facility] (test code = 2801) RETICULOCYTE [id number] 02:16:00 Test Item Value Reference Range Interpretation Comments RETICULOCYTE COUNT PCT ([facility]) (test 2.7 % 0.5-1.7 H code = 575) POCT-GLUCOSE [id number] 01:12:00 Test Item Value Reference Range Interpretation Comments POC-GLUCOSE METER 239 mg/dL 70-110 H TESTED AT [facility] 67 ([facility]) (test code = JODY Gipson [place] 1538) [address] POCT-GLUCOSE [id number] 20:38:00 Test Item Value Reference Range Interpretation Comments POC-GLUCOSE METER 207 mg/dL 70-110 H TESTED AT [place] [address] ([facility]) (test code = JODY Gipson [place] 1538) [address] POCT-GLUCOSE [id number] 16:39:00 Test Item Value Reference Range Interpretation Comments POC-GLUCOSE METER 216 mg/dL 70-110 H TESTED AT [place] [address] ([facility]) (test code = JODY Gipson [place] 1538) [address] [id number] 12:20:00 Test Item Value Reference Range Interpretation Comments PARTIAL THROMBOPLASTIN TIME 36.6 seconds 22.5-36.0 H ([facility]) (test code = 760) 4 hours after the start of continuous infusion and 4 hours after any rate change POCT-GLUCOSE [id number] 12:03:00 Test Item Value Reference Range Interpretation Comments POC-GLUCOSE METER 206 mg/dL 70-110 H TESTED AT [facility] 6720 ([facility]) (test code = JODY Gipson [place] 1538) [address] POCT-GLUCOSE [id number] 12:03:00 Test Item Value Reference Range Interpretation Comments POC-GLUCOSE METER 193 mg/dL 70-110 H TESTED AT [facility] 67 ([facility]) (test code = JODY Gipson [place] 1538) [address] POCT-GLUCOSE [id number] 12:02:00 Test Item Value Reference Range Interpretation Comments POC-GLUCOSE METER 234 mg/dL 70-110 H TESTED AT [facility] 67 ([facility]) (test code = JODY Gipson [place] 1538) [address] POCT-GLUCOSE [id number] 12:02:00 Test Item Value Reference Range Interpretation Comments POC-GLUCOSE METER 211 mg/dL 70-110 H TESTED AT [facility] 6720 ([facility]) (test code = JODY Gipson [place] 1538) [address] U/S, RENAL, [id number] 08:45:00Reason for exam:->CKDFINAL REPORT TECHNIQUE: Grayscale ultrasound [...] Verified Date/Time: 08/02/2018 08:45:50 Reading Location: [address] Radiology Reading Room Electronically signedby: ROB NAVARRO MD on 08/02/2018 08:45 AMPOCT-GLUCOSE [id number] 08:25:00 Test Item Value Reference Range Interpretation Comments POC-GLUCOSE METER 237 mg/dL 70-110 H TESTED AT [facility] 67 ([facility]) (test code = JODY Gipson [facility] 1538) [address] [id number] 08:19:00 Test Item Value Reference Range Interpretation Comments PARTIAL THROMBOPLASTIN TIME 38.2 seconds 22.5-36.0 H (BEAKER) (test code = 760) 4 hours after the start of continuous infusion and 4 hours after any rate change POCT-GLUCOSE [id number] 07:14:00 Test Item Value Reference Range Interpretation Comments POC-GLUCOSE METER 246 mg/dL 70-110 H TESTED AT [facility] 6720 ([facility]) (test code = JODY Gipson [place] 1538) [address] COMPREHENSIVE METABOLIC [id number] 04:58:00 Test Item Value Reference Range Interpretation [...] I S NOT APPLICABLE FOR DIALYSIS PATIEN [id number] 04:52:00 Test Item Value Reference Range Interpretation Comments PARTIAL THROMBOPLASTIN TIME 37.5 seconds 22.5-36.0 H (BEAKER) (test code = 760) 4 hours after the start of continuous infusion and 4 hours after any rate change RAD, CHEST, 1 VIEW, NON [id number] 04:44:00Reason for exam:->impella positionShould this be performed [...] 0-100 H (BEAKER) (test code = 700) [id number] 04:40:00 Test Item Value Reference Range Interpretation Comments MAGNESIUM (BEAKER) 2.0 mg/dL 1.6-2.6 Specimen slightly (test code = 627) hemolyzed [id number] 04:40:00 Test Item Value Reference Range Interpretation Comments PHOSPHORUS (BEAKER) 4.7 mg/dL 2.3-4.7 Specimen slightly (test code = 604) hemolyzed URIC [id number] 04:40:00 Test Item Value Reference Range Interpretation Comments URIC ACID (BEAKER) 9.1 mg/dL 2.6-7.2 H Specimen slightly (test code = 773) hemolyzed LACTIC ACID, [id number] 04:31:00 Test Item Value Reference Range Interpretation Comments LACTATE BLOOD 0.9 mmol/L 0.5-2.2 Specimen sligh tly ARTERIAL (2) (BEAKER) hemoly zed (test code = 2874) BLOOD GAS, [id number] 04:25:00 Test Item Value Reference Range Interpretation [...] (test code = 1819) 36.0 % GLUCOSE-STAT [id number] 04:25:00 Test Item Value Reference Range Interpretation Comments GLUCOSE RANDOM (BEAKER) (test code 272 mg/dL 70-110 H = 652) HGB/HCT (H&H) - STAT [id number] 04:25:00 Test Item Value Reference Range Interpretation Comments HEMOGLOBIN (BEAKER) (test code = 10.9 g/dL 12.0-15.0 L 410) HEMATOCRIT (BEAKER) (test code = 32.0 % 36.0-45.0 L 411) CBC W/PLT COUNT & AUTO [id number] 04:24:00 Test Item Value Reference Range Interpretation [...] PERCENT (BEAKER) (test code = 2801) CALCIUM, [id number] 04:22:00 Test Item Value Reference Range Interpretation Comments CALCIUM IONIZED (BEAKER) (test 1.20 mmol/L 1.12-1.27 code = 698) PH, BLOOD (BEAKER) (test code = 7.31 1810) SODIUM NA-STAT [id number] 04:21:00 Test Item Value Reference Range Interpretation Comments SODIUM (BEAKER) (test code = 381) 136 meq/L 135-148 POTASSIUM-STAT [id number] 04:21:00 Test Item Value Reference Range Interpretation Comments POTASSIUM (BEAKER) (test code = 4.6 meq/L 3.6-5.5 379) LACTIC ACID, [id number] 00:13:00 Test Item Value Reference Range Interpretation Comments LACTATE BLOOD ARTERIAL (2) 0.7 mmol/L 0.5-2.2 (BEAKER) (test code = 2874) SODIUM NA-STAT [id number] 23:59:00 Test Item Value Reference Range Interpretation Comments SODIUM (BEAKER) (test code = 381) 136 meq/L 135-148 POTASSIUM-STAT [id number] 23:59:00 Test Item Value Reference Range Interpretation Comments POTASSIUM (BEAKER) (test code = 4.8 meq/L 3.6-5.5 379) BLOOD GAS, [id number] 23:59:00 Test Item Value Reference Range Interpretation [...] (test code = 1819) 36.0 % GLUCOSE-STAT [id number] 23:59:00 Test Item Value Reference Range Interpretation Comments GLUCOSE RANDOM (BEAKER) (test code 275 mg/dL 70-110 H = 652) HGB/HCT (H&H) - STAT [id number] 23:59:00 Test Item Value Reference Range Interpretation Comments HEMOGLOBIN (BEAKER) (test code = 11.3 g/dL 12.0-15.0 L 410) HEMATOCRIT (BEAKER) (test code = 33.0 % 36.0-45.0 L 411) [id number] 21:53:00 Test Item Value Reference Range Interpretation Comments PARTIAL THROMBOPLASTIN TIME 63.4 seconds 22.5-36.0 H (BEAKER) (test code = 760) 4 hours after the start of continuous infusion and 4 hours after any rate change COMPREHENSIVE METABOLIC [id number] 19:43:00 Test Item Value Reference Range Interpretation [...] DIALYSIS PATIEN TS. Call k > 5, [id number] 19:41:00 Test Item Value Reference Range Interpretation Comments SODIUM (BEAKER) (test 137 meq/L 136-145 code = 381) POTASSIUM (BEAKER) 4.8 meq/L 3.5-5.1 Specimen slightly (test code = 379) hemolyzed CHLORIDE (BEAKER) 109 meq/L 98-107 H (test code = 382) CO2 (BEAKER) (test 20 meq/L 22-29 L code = 355) Call k > 5, [id number] 19:37:00 Test Item Value Reference Range Interpretation [...] INR is2.5-3.5 for patients wiht mechanical heart valves.[id number] 19:36:00 Test Item Value Reference Range Interpretation Comments FIBRINOGEN LEVEL (BEAKER) (test 336 mg/dl 225-434 code = 658) LACTIC ACID, [id number] 19:34:00 Test Item Value Reference Range Interpretation [...] (BEAKER) (test code = 413) BLOOD GAS, [id number] 19:16:00 Test Item Value Reference Range Interpretation [...] (test code = 1819) 36.0 % GLUCOSE-STAT [id number] 19:16:00 Test Item Value Reference Range Interpretation Comments GLUCOSE RANDOM (BEAKER) (test code 231 mg/dL 70-110 H = 652) HGB/HCT (H&H) - STAT [id number] 19:16:00 Test Item Value Reference Range Interpretation Comments HEMOGLOBIN (BEAKER) (test code = 11.5 g/dL 12.0-15.0 L 410) HEMATOCRIT (BEAKER) (test code = 34.0 % 36.0-45.0 L 411) CALCIUM, [id number] 19:15:00 Test Item Value Reference Range Interpretation Comments CALCIUM IONIZED (BEAKER) (test 1.26 mmol/L 1.12-1.27 code = 698) PH, BLOOD (BEAKER) (test code = 7.35 1810) OXYGEN SATURATION, [id number] 19:14:00 Test Item Value Reference Range Interpretation Comments O2 SATURATION (MEASURED) (BEAKER) 41.9 % (test code = 1455) SODIUM NA-STAT [id number] 19:14:00 Test Item Value Reference Range Interpretation Comments SODIUM (BEAKER) (test code = 381) 138 meq/L 135-148 POTASSIUM-STAT [id number] 19:14:00 Test Item Value Reference Range Interpretation Comments POTASSIUM (BEAKER) (test code = 4.7 meq/L 3.6-5.5 379) [id number] 16:45:00 Test Item Value Reference Range Interpretation Comments ACTIVATED CLOTTING TIME 389 sec TEST ED AT [place] [address] (BEAKER) (test code = JODY [place]ipson [place] 441) [address] HEMOGLOBIN AND [id number] 16:38:00 Test Item Value Reference Range Interpretation Comments HEMOGLOBIN (BEAKER) (test code = 10.1 GM/DL 11.2-15.7 L 410) HEMATOCRIT (BEAKER) (test code = 31.6 % 34.1-44.9 L 411) PLATELET AGGREGATION: FUNCTION [id number] 16:05:00 Test Item Value Reference Range Interpretation Comments WEAK ADP 34 % 60-91 L RESULT(BEAKER) (test code = 2135) PLATELET FUNCTION 0-39% indicates marked SCREEN INTERP platelet dysfunction (BEAKER) (test code = 2173) [id number] Talia Villarreal MD (BEAKER) (test code = (electronic signature) 6283) PLATELET COUNT AGG 186 K/CU MM 150-450 (BEAKER) (test code = 0326) Platelet Function Screen results may be falsely low with platelet counts<100,000/cu mm.[id number] 15:02:00 Test Item Value Reference Range Interpretation Comments ACTIVATED CLOTTING TIME 411 sec TEST ED AT [place] [address] ([facility]) (test code = JODY Gipson [place] 441) [address] POCT-GLUCOSE [id number] 12:17:00 Test Item Value Reference Range Interpretation Comments POC-GLUCOSE METER 103 mg/dL 70-110 TESTED AT [place] [address] ([facility]) (test code = [facility] 1538) [address] POCT-GLUCOSE [id number] 08:18:00 Test Item Value Reference Range Interpretation Comments POC-GLUCOSE METER 388 mg/dL 70-110 H TESTED AT [place] [address] ([facility]) (test code = [facility] 1538) [address] HEPATIC FUNCTION [id number] 08:09:00 Test Item Value Reference Range Interpretation [...] slightly (test code = 347) hemolyzed TROPONIN [id number] 06:39:00 Test Item Value Reference Range Interpretation Comments TROPONIN I (BEAKER) (test code = 0.26 ng/mL 0.00-0.03 [facility]) Troponin I (TnI) levels must be [...] acidosis, acute neurological disease, and persistent tachyarrhythmia.POCT-GLUCOSE [id number] 06:36:00 Test Item Value Reference Range Interpretation Comments POC-GLUCOSE METER 415 mg/dL 70-110 HH TESTED AT [facility] 6720 (BEAKER) (test code = [place]ODY [place] 1538) [address] BASIC METABOLIC [id number] 06:10:00 Test Item Value Reference Range Interpretation [...] S NOT APPLICABLE FOR DIALYSIS PATIEN TS. [id number] 06:03:00 Test Item Value Reference Range Interpretation Comments MAGNESIUM (BEAKER) 2.2 mg/dL 1.6-2.6 Specimen slightly (test code = 627) hemolyzed THROMBIN [id number] 05:09:00 Test Item Value Reference Range Interpretation Comments THROMBIN TIME (BEAKER) (test code = 64.9 secs 13.8-20.0 H 550) Draw baseline aPTT prior to [id number] 05:08:00 Test Item Value Reference Range Interpretation Comments PARTIAL THROMBOPLASTIN TIME 43.1 seconds 22.5-36.0 H (BEAKER) (test code = 760) Draw baseline aPTT prior to infusionPROTHROMBIN TIME/[id number] 05:07:00 Test Item Value Reference Range Interpretation [...] to infusion CBC W/PLT COUNT & AUTO [id number] 04:59:00 Test Item Value Reference Range Interpretation [...] = 2801) RAD, CHEST, 1 VIEW, NON [id number] 04:33:00Reason for exam:->preopShould this be performed at the bedside?->YesFINAL REPORT RAD, CHEST, 1 VIEW, NON DEPT INDICATION: preop COMPARISON: Prior day's exam FINDINGS: Portable frontal view of the chest. IMPRESSION: Support Lines: Stable. Lungs and pleura: Unchanged airspace and pleural opacities. No pneumothorax.Heart and mediastinum: Stable contours. Additional findings: None. Signed: [facility] Verified Date/Time: 08/01/2018 04:33:15 RAD, CHEST, 1 VIEW, NON [id number] 00:02:00Reason for exam:->Intraaortic balloon pump insertionShould this [...] the cervical spine. Signed: Socorro Méndez [facility] Verified Date/Time: 08/01/2018 00:02:19 Electronically signed by: SOCORRO MÉNDEZ MD on08/01/2018 12:02 AMTSH/FREE T4 IF [id number] 21:34:00 Test Item Value Reference Range Interpretation Comments THYROID STIMULATING HORMONE 0.99 uIU/mL 0.35-4.94 (BEAKER) (test code = 772) TROPONIN [id number] 21:26:00 Test Item Value Reference Range Interpretation [...] = 700) RAD, CHEST, 1 VIEW, NON [id number] 21:20:00Reason for exam:->unstable anginaShould this be performed [...] MDReport Verified Date/Time: 07/31/2018 21:20:52 Reading Location: [address] Consult Reading Room [facility] METABOLIC [id number] 21:18:00 Test Item Value Reference Range Interpretation [...] APPLICABLE FOR DIALYSIS PATIEN TS. HEPATIC FUNCTION [id number] 21:15:00 Test Item Value Reference Range Interpretation [...] (test code = 10 U/L 6-55 347) [id number] 20:57:00 Test Item Value Reference Range Interpretation Comments PARTIAL THROMBOPLASTIN TIME 27.7 seconds 22.5-36.0 (BEAKER) (test code = 760) PROTHROMBIN TIME/[id number] 20:56:00 Test Item Value Reference Range Interpretation [...] mechanical heart valves.CBC W/PLT COUNT & AUTO [id number] 20:50:00 Test Item Value Reference Range Interpretation [...] 0-1 PERCENT (BEAKER) (test code = 2801) [id number] 19:45:00 Test Item Value Reference Range Interpretation [...] as d efined by WHO. COMPREHENSIVE METABOLIC [id number] 16:08:00 Test Item Value Reference Range Interpretation [...] code = ALKP) - XR CHEST 1 [id number] 15:43:00 FAX: Rhett Jo [phone] Camps: ER St: REG Name: [facility] : 1940 Age/S: 78/F [address] Unit #: [id number] Loc: VR.DIMAS [place], [place] [address] Phys: Rhett Sams MD Acct: [id number] Dis Date: Status: REG ER PHONE #: [phone] Exam Date: 07/28/2018 1527 FAX #: [phone] Reason: CP EXAMS: CPT CODE: [id number] XR CHEST 1 V 14697 Examination: Chest 1 view Location code: S17 Comparison: None Discussion: Clinical history is remarkable for chest tightness. Cardiac silhouette is slightly enlarged, atherosclerotic change present. There are coarsened interstitial changes present bilaterally, mild bilateral parenchymal basilar scarring noted. Impression: 1. Coarsened interstitial changes with likely bilateral basilar parenchymal scarring. at 2835 Reported and signed by: YUAN BUNN M.D. CC: Rhett Sams MDTechnologist: HESHAM FONG RT,(R) ARRT Transcribed Date/Time/By: 07/28/2018 (5243) :[id number] Orig Print D/T: S: 07/28/2018 (3325) Automated exposure control, iterative reconstruction technique, and/oradjustment of mA and/or kV according to patient's size was utilizedfor optimum radiation dose reduction. PAGE 1 Signed Report TROPONIN I [id number] 15:37:00 Test Item Value Reference Range Interpretation Comments TROPONIN I RAPID 0.03 NG/ML 0.00-0.08 N 0.00 - 0.08 (test code = Normal0.09 - 0. 40 TROPIRAP) Indeterminate f or AMI 0.41 and above Compatible with AMI CHEMISTRY 8 [id number] 15:36:00 Test Item Value Reference Range Interpretation [...] 2.6 MG/DL 0.6-1.0 H CREATBED) CBC W/AUTO [id number] 15:34:00 Test Item Value Reference Range Interpretation [...]
--- OUTSIDE RECORDS SUMMARY | 2019-10-09 14:58 | XMS REPORT ---
[...] Problem Coronary artery disease involving I25.110 Active [place] coronary artery of [place] heart with unstable angina pectoris Problem History of cholecystectomy Z90.49 A ctive Problem Stented coronary artery Z95.5 Acti ve Problem 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 Ac tive classified elsewhere Problem Chronic kidney disease, stage 4 N18.4 Active (severe) Problem At risk for falling Z91.81 Active Problem Atherosclerosis of [place] coronary I25.10 Active artery Problem Cervical stenosis of spine M48.02 A ctive Problem Type 2 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 Problem Hypertensive heart disease without I11.9 Active heart failure 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
--- OUTSIDE RECORDS SUMMARY | 2019-10-09 14:58 | XMS REPORT ---
[...] Problem Coronary artery disease involving I25.110 Active [place] coronary artery of [place] heart with unstable angina pectoris Problem History of cholecystectomy Z90.49 A ctive Problem Stented coronary artery Z95.5 Acti ve Problem 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 Ac tive classified elsewhere Problem Chronic kidney disease, stage 4 N18.4 Active (severe) Problem At risk for falling Z91.81 Active Problem Atherosclerosis of [place] coronary I25.10 Active artery Problem Cervical stenosis of spine M48.02 A ctive Problem Type 2 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 Problem Hypertensive heart disease without I11.9 Active heart failure 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
[2019-10-09] MEDS ORDERED: NA CHLORIDE 0.9% 2,000 ML ONE (15:32)
[2019-10-09 15:48] LABS: Absolute Lymphocytes (CBC) 0.9 K/uL (0.7-4.9); Basophils % 0.7 % (0-1.3); Hematocrit 36.7 % (36.0-45.0); Lymphocytes % 14.4 % (15.3-44.8); MPV 8.6 fL (7.6-11.3); RBC Red Blood Cell Count 4.02 M/uL (3.86-4.86)
[2019-10-09 15:57] LABS: Protime INR 1.07
--- NOTE | 2019-10-09 16:00 | RAD REPORT ---
EXAM DESCRIPTION: RAD - Chest Single View - 10/09/2019 3:55 pm CLINICAL HISTORY: chills and pain Chest pain. COMPARISON: Chest Single View dated 09/21/2019; Chest Single View dated 09/01/2019; Chest Pa And Lat (2 Views) dated 08/26/2019; Chest Single View dated 08/21/2019 FINDINGS: Portable technique limits examination quality. The lungs are mildly emphysematous but grossly clear. The heart is mildly enlarged in size. No displa manuel fractures.Right-sided venous catheter is unchanged in position. IMPRESSION: No acute intrathoracic process suspected.
[2019-10-09 16:21] LABS: Albumin 3.3 g/dL (3.4-5.0); Bilirubin Direct 0.2 mg/dL (0-0.2); Bilirubin Total 0.6 mg/dL (0.2-1.0); CKMB Creatine Kinase MB 1.4 ng/mL (0.3-3.6); Potassium 3.4 mmol/L (3.5-5.1); Protein, Total 7.7 g/dL (6.4-8.2); Troponin (Emerg Dept Use Only) 0.2 ng/mL (0.0-0.045)
[2019-10-09] MEDS ORDERED: HYDROCODONE/APAP 7.5/325 MG TAB ONE (16:59)
[2019-10-09] MEDS ORDERED: PHENAZOPYRIDINE 100MG TAB PO ONE (16:59)
[2019-10-09 17:38] LABS: Urine Bacteria LOADED /HPF (<20); Urine Culture Reflex Order REFLEXED; Urine RBC <5 /HPF (NONE SEEN); Urine Yeast MANY (NONE SEEN)
[2019-10-09] MEDS ORDERED: NA CHLORIDE 0.9% 100 ML IV ONE (17:55)
[2019-10-09] MEDS ORDERED: CEFTRIAXONE/SWI 1gm 1 GM/10 ML SYR ONE (17:55)
--- NOTE | 2019-10-09 17:56 | ER ---
Nurse's Notes [facility] Name: Suzan Gonzalez Age: 79 yrs Sex: Female : 1940 Arrival Date: 10/09/2019 Time: 14:47 Bed 8 Private MD: John Perry Diagnosis: Urethritis and urethral syndrome;Fungal Infection;Urinary tract infection, site not specified Presentation: 10/08 14:59 Chief complaint: Patient states: UTI for over 2 weeks, tried 2 different antibiotics. ll1 Azo not helping. Had chest pressure this morning at 5am, took 1 nitro at 5am that helped. Coronavirus screen: Client denies travel out of the [place] in the last 14 days. At this time, the client does not indicate any symptoms associated with coronavirus-19. The client reports previous COVID testing was negative. Ebola Screen: Patient denies travel to an Ebola-affected area in the 21 days before illness onset. Initial Sepsis Screen: Does the patient meet any 2 criteria? No. Patient's initial sepsis screen is negative. Onset of symptoms was September 25, 2019. 14:59 Method Of Arrival: Wheelchair ll1 14:59 Acuity: SERGIO 3 ll1 15:30 Initial Sepsis Screen: Does the patient have a suspected source of infection? No. hb Patient's initial sepsis screen is negative. Risk Assessment: Do you want to hurt yourself or someone else? Patient reports no desire to harm self or others. Historical: - Allergies: 15:03 "every pain narcotic"; ll1 15:03 Bactrim; ll1 15:03 Benadryl; ll1 15:03 Iodine; ll1 15:03 Levaquin; ll1 15:03 Levofloxacin; ll1 15:03 Morphine; ll1 15:03 Sulfa (Sulfonamide Antibiotics); ll1 - PMHx: 15:03 Diabetes - NIDDM; Dialysis; kidney problems; ll1 - PSHx: 15:03 Angioplasty; ll1 - Immunization history:: Flu vaccine is up to date. - Social history:: Smoking status: Patient denies any tobacco usage or history of. Patient/guardian denies using alcohol, street drugs. Screenin:36 Abuse screen: Denies threats or abuse. Denies injuries from another. Nutritional sv screening: No deficits noted. Tuberculosis screening: No symptoms or risk factors identified. Fall Risk None identified. Assessment: 15:30 General: Appears in no apparent distress. Behavior is calm, cooperative. Pain: Pain hb currently is 9 out of 10 on a pain scale. Neuro: Level of Consciousness is awake, alert, obeys commands, Oriented to person, place, time, situation. Cardiovascular: Reports chest pain, Capillary refill < 3 seconds Patient's skin is warm and dry. Respiratory: Airway is patent Respiratory effort is even, unlabored, Respiratory pattern is regular, symmetrical, Breath sounds are clear bilaterally. GI: No signs and/or symptoms were reported involving the gastrointestinal system. : Reports burning with urination. EENT: No signs and/or symptoms were reported regarding the EENT system. Derm: Skin is pink, warm \\T\\ dry. Musculoskeletal: No signs and/or symptoms reported regarding the musculoskeletal system. 16:30 Reassessment: Patient appears in no apparent distress at this time. Patient and/or hb family updated on plan of care and expected duration. Pain level reassessed. Patient is alert, oriented x 3, equal unlabored respirations, skin warm/dry/pink. 17:30 Reassessment: Patient appears in no apparent distress at this time. Patient and/or hb family updated on plan of care and expected duration. Pain level reassessed. Patient is alert, oriented x 3, equal unlabored respirations, skin warm/dry/pink. 17:33 Reassessment: Daughter Ivonne [phone], updated on pt condition. hb 18:15 Reassessment: Patient appears in no apparent distress at this time. Patient and/or hb family updated on plan of care and expected duration. Pain level reassessed. Patient is alert, oriented x 3, equal unlabored respirations, skin warm/dry/pink. 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 hb Vital Signs: 14:59 BP 104 / 47; Pulse 80; Resp 17; Temp 98.8; Pulse Ox 100% ; Weight 70.31 kg; Height 5 ll1 ft. 1 in. (154.94 cm); Pain 9/10; 16:00 BP 115 / 49; Pulse 79; Resp 17; Pulse Ox 98% on R/A; hb 16:45 BP 134 / 56; Pulse 84; Resp 15; Pulse Ox 100% on R/A; hb 17:34 BP 130 / 52; Pulse 77; Resp 17; Pulse Ox 100% ; hb 18:38 BP 140 / 56; Pulse 76; Resp 14; Pulse Ox 100% on R/A; hb 14:59 Body Mass Index 29.29 (70.31 kg, 154.94 cm) ll1 ED Course: 14:47 Patient arrived in ED. rg4 14:48 John Perry DO is Private Physician. rg4 15:02 Triage completed. ll1 15:03 Arm band placed on Patient notified of wait time. ll1 15:05 Suraj Thomas MD is Attending Physician. kdr 15:20 First set of blood cultures drawn by me, EKG done, by ED staff, reviewed by Suraj Thomas MD. 15:28 Second set of blood cultures drawn by me. Inserted saline lock: 20 gauge in right sv forearm, using aseptic technique. Blood collected. Flushed right forearm with 5 ml normal saline. 15:35 Nat Murphy, SOLITARIO is Primary Nurse. sv 15:36 Patient has correct armband on for positive identification. Bed in low position. Call sv light in reach. supervisor gelatin plant on. Pulse ox on. NIBP on. Door closed. Head of bed elevated. 15:55 Chest Single View XRAY In Process Unspecified. EDMS 16:11 Amylase, Serum Sent. sv 16:11 Basic Metabolic Panel Sent. sv 16:11 Blood Culture Adult (2) Sent. sv 16:11 CBC with Diff Sent. sv 16:12 Ckmb Sent. sv 16:12 CPK Sent. sv 16:52 Urine Dipstick--Ancillary (enter results) Sent. hb 17:08 pt daughter..[phone]. bd 17:54 John Perry DO is Referral Physician. kdr 18:38 No provider procedures requiring assistance completed. IV discontinued, intact, hb bleeding controlled, No redness/swelling at site. Administered Medications: 15:30 Drug: NS 0.9% 500 ml Route: IV; Rate: bolus; Site: right antecubital; hb 17:30 Follow up: Response: No adverse reaction; IV Status: Completed infusion; IV Intake: sv 500ml 15:54 Not Given (PER DR THOMAS): NS 0.9% (30 ml/kg) 30 ml/kg IV at bolus once; Sepsis hb Protocol 16:56 Drug: Pyridium 200 mg Route: PO; hb 18:00 Follow up: Response: No adverse reaction sv 16:56 Drug: [place] (7.5 mg-325 mg) 1 tabs Route: PO; hb 17:59 Follow up: Response: No adverse reaction; Pain is decreased; RASS: Alert and Calm (0) sv 17:45 Drug: Rocephin - (cefTRIAXone) 1 grams Route: IVPB; Infused Over: 30 mins; Site: right sv forearm; 17:46 Follow up: IV Status: Completed infusion; IV Intake: 10ml hb 18:04 Follow up: Response: No adverse reaction hb 18:10 Drug: DiFLUcan 150 mg Route: PO; hb 18:37 Follow up: Response: Medication administered at discharge. hb 18:10 Drug: Macrobid 100 mg Route: PO; hb 18:37 Follow up: Response: Medication administered at discharge. hb Intake: 17:30 IV: 500ml; Total: 500ml. sv 17:46 IV: 10ml; Total: 510ml. hb Outcome: 17:56 Discharge ordered by . kdr 18:38 Discharged to home via wheelchair. hb 18:38 Condition: stable 18:38 Discharge instructions given to patient, Instructed on discharge instructions, follow up and referral plans. medication usage, Demonstrated understanding of instructions, follow-up care, medications, Prescriptions given X 2. 19:07 Patient left the ED. sv Signatures: Dispatcher [employer] EDMS Lucy Mendoza Stephanie, RN RN sv Rittger, Kevin, MD MD [facility] Erin Nguyễn RN RN hb Garcia, Rubi rg4 Ignacio Diego RN RN ll1 Corrections: (The following items were deleted from the chart) 16:57 16:30 BP 134 / 56; Pulse 84bpm; Resp 15bpm; Pulse Ox 100% RA; hb hb
--- NOTE | 2019-10-09 17:56 | EDPHYS ---
Physician Documentation [facility] Name: Suzan Gonzalez Age: 79 yrs Sex: Female : 1940 Arrival Date: 10/09/2019 Time: 14:47 Bed 8 Private MD: [place] [facility] ED Physician Suraj Thomas HPI: 10/09 15:09 This 79 yrs old Female presents to ER via Wheelchair with complaints of Pain kdr All Over, CHILLS. 15:09 The patient presents with urinary symptoms, dysuria. Onset: The symptoms/episode kdr began/occurred gradually, 2 week(s) ago. Modifying factors: The symptoms are alleviated by nothing, the symptoms are aggravated by urinating. Associated signs and symptoms: Pertinent positives: fever, urinary frequency, chills. Severity of symptoms: At their worst the symptoms were mild, in the emergency department the symptoms are unchanged. The patient has experienced similar episodes in the past, a few times. The patient has been recently seen by a physician: Has been on two rounds of abx without relief. Historical: - Allergies: 10/08 15:03 "every pain narcotic"; ll1 15:03 Bactrim; ll1 15:03 Benadryl; ll1 15:03 Iodine; ll1 15:03 Levaquin; ll1 15:03 Levofloxacin; ll1 15:03 Morphine; ll1 15:03 Sulfa (Sulfonamide Antibiotics); ll1 - PMHx: 15:03 Diabetes - NIDDM; Dialysis; kidney problems; ll1 - PSHx: 15:03 Angioplasty; ll1 - Immunization history:: Flu vaccine is up to date. - Social history:: Smoking status: Patient denies any tobacco usage or history of. Patient/guardian denies using alcohol, street drugs. ROS: 10/09 15:09 Constitutional: Negative for fever, chills, and weight loss, Eyes: Negative for injury, kdr pain, redness, and discharge, Neck: Negative for injury, pain, and swelling, Cardiovascular: Negative for chest pain, palpitations, and edema, Respiratory: Negative for shortness of breath, cough, wheezing, and pleuritic chest pain, Abdomen/GI: Negative for abdominal pain, nausea, vomiting, diarrhea, and constipation, Back: Negative for injury and pain, MS/Extremity: Negative for injury and deformity, Skin: Negative for injury, rash, and discoloration, Neuro: Negative for headache, weakness, numbness, tingling, and seizure activity. Psych: Negative for depression, anxiety, suicide ideation, homicidal ideation, and hallucinations, Allergy/Immunology: Negative for hives, rash, and allergies, Endocrine: Negative for neck swelling, polydipsia, polyuria, polyphagia, and marked weight changes, Hematologic/Lymphatic: Negative for swollen nodes, abnormal bleeding, and unusual bruising. : Positive for urinary symptoms. Exam: 10/08 19:21 ECG was reviewed by the Attending Physician. kdr 10/09 15:09 Constitutional: This is a well developed, well nourished patient who is awake, alert, kdr and in no acute distress. Head/Face: Normocephalic, atraumatic. Eyes: Pupils equal round and reactive to light, extra-ocular motions intact. Lids and lashes normal. Conjunctiva and sclera are non-icteric and not injected. Cornea within normal limits. Periorbital areas with no swelling, redness, or edema. Neck: Trachea midline, no thyromegaly or masses palpated, and no cervical lymphadenopathy. Supple, full range of motion without nuchal rigidity, or vertebral point tenderness. No Meningismus. Chest/axilla: Normal chest wall appearance and motion. Nontender with no deformity. No lesions are appreciated. Cardiovascular: Regular rate and rhythm with a normal S1 and S2. No gallops, murmurs, or rubs. Normal PMI, no JVD. No pulse deficits. Respiratory: Lungs have equal breath sounds bilaterally, clear to auscultation and percussion. No rales, rhonchi or wheezes noted. No increased work of breathing, no retractions or nasal flaring. Abdomen/GI: Soft, non-tender, with normal bowel sounds. No distension or tympany. No guarding or rebound. No evidence of tenderness throughout. Back: No spinal tenderness. No costovertebral tenderness. Full range of motion. Skin: Warm, dry with normal turgor. Normal color with no rashes, no lesions, and no evidence of cellulitis. MS/ Extremity: Pulses equal, no cyanosis. Neurovascular intact. Full, normal range of motion. Neuro: Awake and alert, GCS 15, oriented to person, place, time, and situation. Cranial nerves II-XII grossly intact. Motor strength 5/5 in all extremities. Sensory grossly intact. Cerebellar exam normal. Normal gait. Psych: Awake, alert, with orientation to person, place and time. Behavior, mood, and affect are within normal limits. Vital Signs: 10/08 14:59 BP 104 / 47; Pulse 80; Resp 17; Temp 98.8; Pulse Ox 100% ; Weight 70.31 kg; Height 5 ll1 ft. 1 in. (154.94 cm); Pain 9/10; 16:00 BP 115 / 49; Pulse 79; Resp 17; Pulse Ox 98% on R/A; hb 16:45 BP 134 / 56; Pulse 84; Resp 15; Pulse Ox 100% on R/A; hb 17:34 BP 130 / 52; Pulse 77; Resp 17; Pulse Ox 100% ; hb 18:38 BP 140 / 56; Pulse 76; Resp 14; Pulse Ox 100% on R/A; hb 14:59 Body Mass Index 29.29 (70.31 kg, 154.94 cm) ll1 MDM: 17:56 Patient medically screened. kdr 10/09 15:09 Data reviewed: vital signs, nurses notes, lab test result(s), radiologic studies. kdr Counseling: I had a detailed discussion with the patient and/or guardian regarding: the historical points, exam findings, and any diagnostic results supporting the discharge/admit diagnosis, lab results, the need for outpatient follow up. 10/08 15:07 Order name: Amylase, Serum kdr 10/08 15:07 Order name: Basic Metabolic Panel [facility] 10/08 15:07 Order name: Blood Culture Adult (2) kdr 10/08 15:07 Order name: CBC with Diff kdr 10/08 15:07 Order name: Ckmb kdr 10/08 15:07 Order name: CPK kdr 10/08 15:07 Order name: Lactate; Complete Time: 16:10 [facility] 10/08 15:07 Order name: LFT's; Complete Time: 16:36 kdr 10/08 15:07 Order name: Lipase; Complete Time: 16:36 kdr 10/08 15:07 Order name: Procalcitonin; Complete Time: 16:36 [facility] 10/08 15:07 Order name: Protime (+inr); Complete Time: 16:10 [facility] 10/08 15:07 Order name: Ptt, Activated; Complete Time: 16:10 [facility] 10/08 15:07 Order name: Troponin (emerg Dept Use Only); Complete Time: 16:36 [facility] 10/08 15:07 Order name: Urine Microscopic Only; Complete Time: 17:50 kdr 10/08 15:07 Order name: Chest Single View XRAY; Complete Time: 16:10 [facility] 10/08 15:07 Order name: Amylase; Complete Time: 16:36 [facility] 10/08 15:07 Order name: Basic Metabolic Panel; Complete Time: 16:36 [facility] 10/08 15:07 Order name: Blood Culture [facility] 10/08 15:07 Order name: CBC with Automated Diff; Complete Time: 16:10 [facility] 10/08 15:07 Order name: CKMB Creatine Kinase MB; Complete Time: 16:36 [facility] 10/08 15:07 Order name: Creatine Phosphokinase; Complete Time: 16:36 [facility] 10/08 16:19 Order name: Urine Culture [facility] 10/08 16:44 Order name: Urine Dipstick--Ancillary (enter results) 10/08 16:45 Order name: Urine Dipstick-Ancillary [facility] 10/08 15:07 Order name: Accucheck; Complete Time: 15:55 [facility] 10/08 15:07 Order name: Cardiac monitoring; Complete Time: 15:55 [facility] 10/08 15:07 Order name: EKG - Nurse/Tech; Complete Time: 15:55 [facility] 10/08 15:07 Order name: IV Saline Lock - Large Bore; Complete Time: 15:55 [facility] 10/08 15:07 Order name: Labs collected and sent; Complete Time: 15:55 [facility] 10/08 15:07 Order name: O2 Per Protocol; Complete Time: 15:55 [facility] 10/08 15:07 Order name: O2 Sat Monitoring; Complete Time: 15:55 [facility] 10/08 15:07 Order name: Urine Dipstick-Ancillary (obtain specimen); Complete Time: 16:52 kdr EC/19 19:21 Rate is 81 beats/min. Rhythm is regular, Sinus Rhythm with Left bundle branch block. kdr QRS [place] is Normal. [place] interval is normal. QRS interval is normal. Clinical impression: NSR w/ Non-specific ST/T Changes. Administered Medications: 15:30 Drug: NS 0.9% 500 ml Route: IV; Rate: bolus; Site: right antecubital; hb 17:30 Follow up: Response: No adverse reaction; IV Status: Completed infusion; IV Intake: sv 500ml 15:54 Not Given (PER DR THOMAS): NS 0.9% (30 ml/kg) 30 ml/kg IV at bolus once; Sepsis hb Protocol 16:56 Drug: Pyridium 200 mg Route: PO; hb 18:00 Follow up: Response: No adverse reaction sv 16:56 Drug: [place] (7.5 mg-325 mg) 1 tabs Route: PO; hb 17:59 Follow up: Response: No adverse reaction; Pain is decreased; RASS: Alert and Calm (0) sv 17:45 Drug: Rocephin - (cefTRIAXone) 1 grams Route: IVPB; Infused Over: 30 mins; Site: right sv forearm; 17:46 Follow up: IV Status: Completed infusion; IV Intake: 10ml hb 18:04 Follow up: Response: No adverse reaction hb 18:10 Drug: DiFLUcan 150 mg Route: PO; hb 18:37 Follow up: Response: Medication administered at discharge. hb 18:10 Drug: Macrobid 100 mg Route: PO; hb 18:37 Follow up: Response: Medication administered at discharge. hb Disposition: 10/09/19 17:56 Discharged to Home. Impression: Urethritis and urethral syndrome, Fungal Infection, Urinary tract infection, site not specified. - Condition is Stable. - Discharge Instructions: Urinary Tract Infection, Adult, [id number]. - Prescriptions for Pyridium 200 mg Oral Tablet - take 1 tablet by ORAL route every 8 hours for 3 days; 9 tablet. Macrobid 100 mg Oral Capsule - take 1 capsule by ORAL route every 12 hours for 10 days; 20 capsule. - Medication Reconciliation Form, Thank You Letter, Antibiotic Education form. - Follow up: John Perry, DO; When: 2 - 3 days; Reason: If symptoms return, Further diagnostic work-up, Recheck today's complaints, Continuance of care, Re-evaluation by your physician. - Problem is an ongoing problem. - Symptoms have improved. Signatures: Dispatcher [employer] Nat Martinez RN RN sv Rittger, Kevin, MD MD kdr Baxter, Heather, RN RN Johnathon, Lynsay, RN RN ll1 Corrections: (The following items were deleted from the chart) 19:07 17:56 10/09/2019 17:56 Discharged to Home. Impression: Urethritis and urethral sv syndrome; Fungal Infection; Urinary tract infection, site not specified. Condition is Stable. Forms are Medication Reconciliation Form, Thank You Letter, Antibiotic Education, Prescription Opioid Use. Follow up: John Perry; When: 2 - 3 days; Reason: If symptoms return, Further diagnostic work-up, Recheck today's complaints, Continuance of care, Re-evaluation by your physician. Problem is an ongoing problem. Symptoms have improved. kdr
[2019-10-09] MEDS ORDERED: FLUCONAZOLE 100 MG TAB ONE (18:15)
[2019-10-09] MEDS ORDERED: NITROFURAN MACRO 100 MG CAP PO ONE (18:15)
[2019-10-09] MEDS ORDERED: ONDANSETRON 4 MG (ODT) TAB ONE (19:17)
[2019-10-09 20:02] VITALS: TEMP 98.8
[2019-10-09 20:05] VITALS: O2SAT 100
[2019-10-09 20:07] VITALS: BP 140/56
[2019-10-09 20:41] LABS: Urine Blood 2+ (NEG); Urine Glucose 1+ (NEG); Urine Protein 2+ (NEG); Urine Specific Gravity >1.030 (1.005-1.030); Urine pH 5.5 (5.0-7.0)
--- NOTE | 2019-10-10 08:41 | EKG ---
Test Date: 2019-10-09 Test Time: 15:33:16 Digital Designer: HB MEASUREMENT RESULTS: Intervals: Rate: 81 WV: 182 QRSD: 116 QT: 422 QTc: 490 [place]: P: 87 WV: 182 QRS: 52 T: 248 INTERPRETIVE STATEMENTS: Normal sinus rhythm Incomplete left bundle branch block ST & T wave abnormality, consider inferolateral ischemia Prolonged QT Abnormal ECG Compared to ECG 09/21/2019 12:14:35 Left bundle-branch block now present Prolonged QT interval now present Myocardial infarct finding no longer present ST (T wave) deviation still present Possible ischemia still present Electronically Signed On 10-10-19 08:38:21 CDT by Portillo Arteaga
== END 2019-10-09 19:07 | disposition home or self-care (01) ==
LOC: ER 14:45
DX: N34.2 Other urethritis (principal); B49 Unspecified mycosis; Z99.2 Dependence on renal dialysis; Z88.1 Allergy status to other antibiotic agents; Z88.2 Allergy status to sulfonamides; Z88.3 Allergy status to other anti-infective agents; Z88.5 Allergy status to narcotic agent
CPT/HCPCS: 96361; 93005; 87040 ×2; 87088; 85025; 87086; 80048; 36415; 82150; 82550; 85610; 80076; 83605; 85730; 84484; 82553; 83690; 84145; 71045; 96374; 99285; J0696; J7030; 81003; 81015

== ENCOUNTER 2019-10-18 17:42 | Inpatient (IN) | payer OTHER ==
--- OUTSIDE RECORDS SUMMARY | 2019-10-18 17:46 | XMS REPORT | Clinical Summary ---
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 Allergies Active Allergy Reactions Severity Noted [...] of spine 01/30/2019 Coronary artery disease involving [place] coronary simran ry of [place] heart 01/30/2019 H/O stroke without residual deficits [...] Zamora MD 03/21/2019 Surgery Gastroenterology Nely Clinton [facility] COPY MD Daniel 03/20/2019 Orders Only General Internal Medicine 03/20/2019 Travel 03/19/2019 Hospital Encounter Cardiology Fredrick Silva Atrial fl utter, - MD Latrell paroxysmal ([facility]) 03/23/2019 [place] Bojorquez (Primary Dx) Jamaica Singh MD 01/29/2019 Orders Only General Internal Medicine 01/26/2019 Orders Only General Internal Medicine 01/26/2019 Travel 01/25/2019 Hospital Encounter Cardiology Bandeli, Unstable angina ([facility]) (Primary Dx); - Juanito NSTEMI (non-ST elevated myocardial infarction) ([facility]) 01/30/2019 MD Andrea Lawrence Chau Le, MD 01/04/2019 Documentation Smitha Mcpherson RN 12/24/2018 Surgery Spencer Todd & FADI Choe MD 12/20/2018 Hospital Encounter Cardiology Lorraine, NSTEMI (n on-ST elevated myocardial infarction) ([facility]) (Primary Dx); - Papito Braswell, Unstable angina ([facility]) 12/25/2018 Puneet García MD 12/20/2018 Travel 11/12/2018 Spencer Vazquez & FADI Choe MD 11/11/2018 Orders Only General Internal Medicine 11/10/2018 Hospital Encounter Cardiology Spencer Todd NSTEMI s/ p Impella PCI by Dr. 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) 11/10/2018 Travel after 10/17/2018 Social History Tobacco Use Types Packs/Day Years [...] Not on file Implants Implanted Type Area Carpenter And Joiner Device Shelf Model / Identifier Expiration Serial / Date Lot Stent Bettie Caballero 2.09v77wd [id number] - [id number] IMPLANTS N/A: BOSTON [id number] 04/04/2020 [id number] / Implanted: Qty: 1 on 08/01/2018 by Spencer Todd MD Alvarez ry SCI:INTERV / CARDIOLOGY [id number] Stent Synergy Mr [id number] - [id number] IMPLANTS N/A: BOSTON [id number] 04/04/2020 [id number] / Implanted: Qty: 1 on 08/01/2018 by Spencer Todd MD [place]ona ry SCI:INTERV / CARDIOLOGY [id number] Stent Synergy Mr 2.13p51kq [id number] - [id number] IMPLANTS N/A: BOSTON [id number] 04/01/2020 [id number] / Implanted: Qty: 1 on 08/01/2018 by Spencer Todd MD Corona ry SCI:INTERV / CARDIOLOGY [id number] Stent Synergy Otw 3.21w34zb [id number] - [id number] IMPLANTS Left: BOSTON [id number] 05/16/2020 [id number] / Implanted: Qty: 1 on 08/07/2018 by Spencer Todd MD Corona ry SCI:INTERV / CARDIOLOGY [id number] Stent Synergy Otw 2.94p84tu [id number] - [id number] IMPLAN TS Right: BOSTON [id number] 04/30/2020 [id number] / Implanted: Qty: 1 on 08/07/2018 by Spencer Todd MD Corona ry SCI:INTERV / CARDIOLOGY [id number] Stent Synergy Otw 2.80t92fx [id number] - [id number] IMPLAN TS Right: BOSTON [id number] 05/21/2020 [id number] / Implanted: Qty: 1 on 08/07/2018 by Spencer Todd MD Corona ry SCI:INTERV / CARDIOLOGY [id number] Stent Synergy Mr 3.73m43su [id number] - [id number] IMPLANTS Right: BOSTON [id number] 04/10/2020 [id number] / Implanted: Qty: 1 on 08/07/2018 by Spencer Todd MD Corona ry SCI:INTERV / CARDIOLOGY [id number] Stent Synergy Otw 3.93b00ut [id number] - [id number] IMPLAN TS Right: BOSTON [id number] 04/15/2020 [id number] / Implanted: Qty: 1 on 08/07/2018 by Spencer Todd MD Corona ry SCI:INTERV / CARDIOLOGY [id number] Stent Synergy Otw [id number] - [id number] IMPLANTS BOSTON [id number] 08/07/2020 [id number] / Implanted: Qty: 1 on 11/12/2018 by Spencer Todd MD SCI:INTERV / CARDIOLOGY [id number] Stent Synergy Mr 3.62t88xs [id number] - [id number] IMPLANTS Right: BOSTON [id number] 09/25/2020 [id number] / Implanted: Qty: 1 on 03/22/2019 by Spencer Todd MD Corona ry SCI:INTERV / CARDIOLOGY [id number] Procedures Procedure Name Priority Date/Time Associated Comments [...] section. VASCULAR DIAGRAM -SCAN 03/27/2019 2:02 PM POOLING OPERATOR RHYTHM STRIP - SCAN 03/26/2019 2:31 PM POOLING OPERATOR VASCULAR DIAGRAM -SCAN 03/26/2019 8:41 AM POOLING OPERATOR REPORT OF PROCEDURE - 03/26/2019 8:41 ENDOSCOPY SCAN AM POOLING OPERATOR CARDIAC CATH REPORT - 03/26/2019 8:41 SCAN AM POOLING OPERATOR CARDIAC CATH REPORT - 03/26/2019 8:41 SCAN AM POOLING OPERATOR RHYTHM STRIP - SCAN 03/26/2019 8:41 AM POOLING OPERATOR PERIPHERAL VASCULAR 03/23/2019 9:20 REPORT - SCAN PM POOLING OPERATOR POCT-GLUCOSE METER Routine 03/23/2019 11:39 Resul ts for this AM POOLING OPERATOR procedure are i n the results section. POCT-GLUCOSE METER Routine 03/23/2019 8:22 Resul ts for this AM POOLING OPERATOR procedure are i n the results section. COMPREHENSIVE Routine 03/23/2019 5:27 Results fo r this METABOLIC PANEL AM POOLING OPERATOR procedure ar e in the results section. CBC W/PLT COUNT & AUTO Routine 03/23/2019 3:36 R esults for this DIFFERENTIAL AM POOLING OPERATOR procedure are i n the results section. CBC W/PLT COUNT & AUTO Routine 03/23/2019 3:36 R esults for this DIFFERENTIAL AM POOLING OPERATOR procedure are i n the results section. POCT-GLUCOSE METER Routine 03/22/2019 9:57 Resul ts for this PM POOLING OPERATOR procedure are i n the results section. ECHOCARDIOGRAM REPORT 03/22/2019 9:20 - SCAN PM POOLING OPERATOR CAROTID DOPPLER Routine 03/22/2019 7:42 Results for this BILATERAL PM POOLING OPERATOR procedure are i n the results section. POCT-GLUCOSE METER Routine 03/22/2019 5:18 Resul ts for this PM POOLING OPERATOR procedure are i n the results section. CBC (HEMOGRAM ONLY) Routine 03/22/2019 3:55 Resu lts for this PM POOLING OPERATOR procedure are i n the results section. BASIC METABOLIC PANEL Routine 03/22/2019 3:55 Re sults for this (7) PM POOLING OPERATOR procedure are i n the results section. POCT-GLUCOSE METER Routine 03/22/2019 3:00 Resul ts for this PM POOLING OPERATOR procedure are i n the results section. 2D ECHO W/ DOPPLER Routine 03/22/2019 2:04 Resul ts for this (CW/PW/COLOR) PM POOLING OPERATOR procedure are in the results section. POCT-ACT Routine 03/22/2019 10:59 Results for this AM POOLING OPERATOR procedure are i n the results section. POCT-ACT Routine 03/22/2019 10:32 Results for this AM POOLING OPERATOR procedure are i n the results section. L CATH & PCI 03/22/2019 10:18 Coronary artery AM POOLING OPERATOR disease with angina pectoris, unspecified vessel or lesion type, unspecified whether [place] or transplanted heart (HCC) Case Notes 1430 POCT-GLUCOSE METER Routine 03/22/2019 7:33 AM POOLING OPERATOR Results for this procedure are i n the results section . CBC W/PLT COUNT & AUTO Routine 03/22/2019 2:06 AM POOLING OPERATOR Results for this DIFFERENTIAL procedure are i n the results section . LIPID PANEL Routine 03/22/2019 2:06 AM POOLING OPERATOR Resu lts for this procedure are i n the results section . PHOSPHORUS Routine 03/22/2019 2:06 AM POOLING OPERATOR Resu lts for this procedure are i n the results section . MAGNESIUM Routine 03/22/2019 2:06 AM POOLING OPERATOR Resu lts for this procedure are i n the results section . CALCIUM, IONIZED Routine 03/22/2019 2:06 AM POOLING OPERATOR Results for this procedure are i n the results section . CBC W/PLT COUNT & AUTO Routine 03/22/2019 2:06 AM POOLING OPERATOR Results for this DIFFERENTIAL procedure are i n the results section . B-TYPE NATRIURETIC FACTOR Routine 03/22/2019 2:06 AM POOLING OPERATOR Results for this (BNP) procedure are i n the results section . BASIC METABOLIC PANEL (7) Routine 03/22/2019 2:06 AM POOLING OPERATOR Results for this procedure are i n the results section . APTT Routine 03/22/2019 2:06 AM POOLING OPERATOR Resu lts for this procedure are i n the results section . US ABDOMEN COMPLETE Routine 03/22/2019 12:10 AM POOLING OPERATOR Results for this procedure are i n the results section . POCT-GLUCOSE METER Routine 03/21/2019 9:24 PM POOLING OPERATOR Results for this procedure are i n the results section . APTT Routine 03/21/2019 6:57 PM POOLING OPERATOR Resu lts for this procedure are i n the results section . POCT-GLUCOSE METER Routine 03/21/2019 5:26 PM POOLING OPERATOR Results for this procedure are i n the results section . ECG 12-LEAD Routine 03/21/2019 5:24 PM POOLING OPERATOR Resu lts for this procedure are i n the results section . ECG 12-LEAD Routine 03/21/2019 5:24 PM POOLING OPERATOR Procedure Note - Interface, External Ris In - 03/21/2019 5:25 PM POOLING OPERATOR Ventricular Rate 72 BPM Atrial Rate 72 BPM P-R Interval 178 ms QRS Duration 110 ms Q-T Interval 448 ms QTC Calculation(Bazett) 490 ms P [place] 75 degrees R [place] 24 degrees T [place] 165 degrees Normal sinus rhythm Incomplete left bundle branc h block ST & T wave abnormality, con supervisor prep lateral ischemia Prolonged QT Abnormal ECG When compared with ECG of 00:29, No significant change was fo und CT BRAIN WITHOUT IV RHETT 03/21/2019 4:58 PM R esults for this CONTRAST POOLING OPERATOR procedure are i n the results section. TROPONIN I Routine 03/21/2019 3:07 PM Results for this POOLING OPERATOR procedure are i n the results section. XR SHOULDER LEFT RHETT 03/21/2019 2:25 PM Resu lts for this COMPLETE MIN 2 VIEWS POOLING OPERATOR procedu re are in the results section. POCT-GLUCOSE METER Routine 03/21/2019 12:58 PM Re sults for this POOLING OPERATOR procedure are i n the results section. REPORT OF PROCEDURE - 03/21/2019 12:27 PM ENDOSCOPY URL POOLING OPERATOR UPPER ENDOSCOPY 03/21/2019 12:00 PM Atypical chest POOLING OPERATOR pain APTT Routine 03/21/2019 10:36 AM Results for this POOLING OPERATOR procedure are i n the results section. POCT-GLUCOSE METER Routine 03/21/2019 7:39 AM Re sults for this POOLING OPERATOR procedure are i n the results section. APTT Routine 03/21/2019 3:19 AM Results for this POOLING OPERATOR procedure are i n the results section. BASIC METABOLIC PANEL Routine 03/21/2019 2:23 AM Results for this (7) POOLING OPERATOR procedure are i n the results section. CBC (HEMOGRAM ONLY) Routine 03/21/2019 2:22 AM R esults for this POOLING OPERATOR procedure are i n the results section. POCT-GLUCOSE METER Routine 03/20/2019 9:46 PM Re sults for this POOLING OPERATOR procedure are i n the results section. APTT Routine 03/20/2019 7:09 PM Results for this POOLING OPERATOR procedure are i n the results section. POCT-GLUCOSE METER Routine 03/20/2019 6:20 PM Re sults for this POOLING OPERATOR procedure are i n the results section. URINALYSIS W/ Routine 03/20/2019 5:57 PM Results for this MICROSCOPIC POOLING OPERATOR procedure are i n the results section. CREATININE, RANDOM Routine 03/20/2019 5:57 PM Re sults for this URINE POOLING OPERATOR procedure are i n the results section. PROTEIN, RANDOM URINE Routine 03/20/2019 5:57 PM Results for this POOLING OPERATOR procedure are i n the results section. XR CHEST 1 VIEW Routine 03/20/2019 3:12 PM Resul ts for this PORTABLE/BEDSIDE POOLING OPERATOR procedure a re in the results section. TROPONIN I Routine 03/20/2019 12:19 PM Results for this POOLING OPERATOR procedure are i n the results section. APTT Routine 03/20/2019 12:19 PM Results for this POOLING OPERATOR procedure are i n the results section. POCT-GLUCOSE METER Routine 03/20/2019 11:45 AM Re sults for this POOLING OPERATOR procedure are i n the results section. POCT-GLUCOSE METER Routine 03/20/2019 7:37 AM Re sults for this POOLING OPERATOR procedure are i n the results section. TROPONIN I Routine 03/20/2019 5:54 AM Results for this POOLING OPERATOR procedure are i n the results section. CBC W/PLT COUNT & AUTO Routine 03/20/2019 12:43 AM Results for this DIFFERENTIAL POOLING OPERATOR procedure are i n the results section. APTT Routine 03/20/2019 12:43 AM Results for this POOLING OPERATOR procedure are i n the results section. TROPONIN I Routine 03/20/2019 12:43 AM Results for this POOLING OPERATOR procedure are i n the results section. HEMOGLOBIN A1C Routine 03/20/2019 12:43 AM Result s for this POOLING OPERATOR procedure are i n the results section. MAGNESIUM Routine 03/20/2019 12:43 AM Results for this POOLING OPERATOR procedure are i n the results section. BASIC METABOLIC PANEL Routine 03/20/2019 12:43 AM Results for this (7) POOLING OPERATOR procedure are i n the results section. CBC W/PLT COUNT & AUTO Routine 03/20/2019 12:43 AM Results for this DIFFERENTIAL POOLING OPERATOR procedure are i n the results section. ECG 12-LEAD Routine 03/20/2019 12:29 AM POOLING OPERATOR Procedure Note - Interface, External Ris In - 03/20/2019 5:19 AM POOLING OPERATOR Ventricular Rate 66 BPM Atrial Rate 66 BPM P-R Interval 180 ms QRS Duration 116 ms Q-T Interval 460 ms QTC Calculation(Bazett) 482 ms P [place] 45 degrees R [place] 23 degrees T [place] 170 degrees Normal sinus rhythm Incomplete left bundle branc h block ST & T wave abnormality, con supervisor prep lateral ischemia Prolonged QT Abnormal ECG When compared with ECG of 06:27, Incomplete left bundle branc h block is now Present ECG 12-LEAD Routine 03/20/2019 12:29 AM POOLING OPERATOR Resu lts for this procedure are i n the results section . RHYTHM STRIP - SCAN 02/06/2019 11:22 AM POOLING OPERATOR REPORT OF PROCEDURE - 02/01/2019 9:00 AM POOLING OPERATOR ENDOSCOPY SCAN RHYTHM STRIP - SCAN 02/01/2019 9:00 AM POOLING OPERATOR POCT-GLUCOSE METER Routine 01/30/2019 9:05 AM POOLING OPERATOR Results for this procedure are i n the results section . ECG 12-LEAD Routine 01/30/2019 6:27 AM POOLING OPERATOR Resu lts for this procedure are i n the results section . CBC W/PLT COUNT & AUTO Routine 01/30/2019 5:56 AM POOLING OPERATOR Results for this DIFFERENTIAL procedure are i n the results section . URIC ACID Routine 01/30/2019 5:56 AM POOLING OPERATOR Resu lts for this procedure are i n the results section . PHOSPHORUS Routine 01/30/2019 5:56 AM POOLING OPERATOR Resu lts for this procedure are i n the results section . MAGNESIUM Routine 01/30/2019 5:56 AM POOLING OPERATOR Resu lts for this procedure are i n the results section . CBC W/PLT COUNT & AUTO Routine 01/30/2019 5:56 AM POOLING OPERATOR Results for this DIFFERENTIAL procedure are i n the results section . CALCIUM, IONIZED Routine 01/30/2019 5:56 AM POOLING OPERATOR Results for this procedure are i n the results section . B-TYPE NATRIURETIC FACTOR Routine 01/30/2019 5:56 AM POOLING OPERATOR Results for this (BNP) procedure are i n the results section . BASIC METABOLIC PANEL (7) Routine 01/30/2019 5:56 AM POOLING OPERATOR Results for this procedure are i n the results section . POCT-GLUCOSE METER Routine 01/29/2019 9:09 PM POOLING OPERATOR Results for this procedure are i n the results section . POCT-GLUCOSE METER Routine 01/29/2019 5:02 PM POOLING OPERATOR Results for this procedure are i n the results section . PROTEIN, RANDOM URINE Routine 01/29/2019 2:24 PM POOLING OPERATOR Results for this procedure are i n the results section . URINALYSIS W/ MICROSCOPIC Routine 01/29/2019 2:24 PM POOLING OPERATOR Results for this procedure are i n the results section . CREATININE, RANDOM URINE Routine 01/29/2019 2:24 PM POOLING OPERATOR Results for this procedure are i n the results section . SODIUM, RANDOM URINE Routine 01/29/2019 2:24 PM POOLING OPERATOR Results for this procedure are i n the results section . PHOSPHORUS RHETT 01/29/2019 1:24 PM POOLING OPERATOR Resu lts for this procedure are i n the results section . MAGNESIUM RHETT 01/29/2019 1:24 PM POOLING OPERATOR Resu lts for this procedure are i n the results section . BASIC METABOLIC PANEL (7) RHETT 01/29/2019 1:24 PM POOLING OPERATOR Results for this procedure are i n the results section . XR CHEST 1 VIEW Routine 01/29/2019 1:14 PM POOLING OPERATOR R esults for this PORTABLE/BEDSIDE procedure a re in the results section . POCT-GLUCOSE METER Routine 01/29/2019 11:38 AM POOLING OPERATOR Results for this procedure are i n the results section . POCT-GLUCOSE METER Routine 01/29/2019 7:45 AM POOLING OPERATOR Results for this procedure are i n the results section . ECG 12-LEAD Routine 01/29/2019 6:42 AM POOLING OPERATOR Procedure Note - Interface, External Ris In - 01/29/2019 6:53 AM POOLING OPERATOR Ventricular Rate 66 BPM Atrial Rate 66 BPM P-R Interval 190 ms QRS Duration 100 ms Q-T Interval 460 ms QTC Calculation(Bazett) 482 ms P [place] 60 degrees R [place] 26 degrees T [place] 128 degrees Normal sinus rhythm Nonspecific T wave abnormali ty Prolonged QT Abnormal ECG When compared with ECG of 22:51, No significant change was fo und ECG 12-LEAD Routine 01/29/2019 6:42 AM Results for this POOLING OPERATOR procedure are i n the results section. CBC (HEMOGRAM ONLY) Routine 01/29/2019 5:04 AM R esults for this POOLING OPERATOR procedure are i n the results section. POCT-GLUCOSE METER Routine 01/28/2019 9:56 PM Re sults for this POOLING OPERATOR procedure are i n the results section. ECHOCARDIOGRAM REPORT - 01/28/2019 9:21 PM SCAN POOLING OPERATOR C. DIFFICILE GDH TOXIN Routine 01/28/2019 6:41 PM Results for this POOLING OPERATOR procedure are i n the results section. OCCULT BLOOD, STOOL Routine 01/28/2019 6:40 PM R esults for this POOLING OPERATOR procedure are i n the results section. POCT-GLUCOSE METER Routine 01/28/2019 11:46 AM Re sults for this POOLING OPERATOR procedure are i n the results section. 2D ECHO W/ DOPPLER Routine 01/28/2019 11:25 AM Re sults for this (CW/PW/COLOR) POOLING OPERATOR procedure are in the results section. APTT Routine 01/28/2019 8:48 AM Results for this POOLING OPERATOR procedure are i n the results section. POCT-GLUCOSE METER Routine 01/28/2019 8:28 AM Re sults for this POOLING OPERATOR procedure are i n the results section. APTT Routine 01/28/2019 4:28 AM Results for this POOLING OPERATOR procedure are i n the results section. BASIC METABOLIC PANEL Routine 01/28/2019 4:28 AM Results for this (7) POOLING OPERATOR procedure are i n the results section. CBC (HEMOGRAM ONLY) Routine 01/28/2019 4:28 AM R esults for this POOLING OPERATOR procedure are i n the results section. POCT-GLUCOSE METER Routine 01/27/2019 10:00 PM Re sults for this POOLING OPERATOR procedure are i n the results section. APTT Routine 01/27/2019 9:12 PM Results for this POOLING OPERATOR procedure are i n the results section. POCT-GLUCOSE METER Routine 01/27/2019 5:39 PM Re sults for this POOLING OPERATOR procedure are i n the results section. PT/APTT Routine 01/27/2019 4:27 PM Results for this POOLING OPERATOR procedure are i n the results section. PT/APTT Routine 01/27/2019 12:58 PM Results for this POOLING OPERATOR procedure are i n the results section. POCT-GLUCOSE METER Routine 01/27/2019 12:35 PM Re sults for this POOLING OPERATOR procedure are i n the results section. POCT-GLUCOSE METER Routine 01/27/2019 9:31 AM Re sults for this POOLING OPERATOR procedure are i n the results section. ECG 12-LEAD Routine 01/27/2019 7:06 AM Results for this POOLING OPERATOR procedure are i n the results section. APTT Routine 01/27/2019 5:55 AM Results for this POOLING OPERATOR procedure are i n the results section. POCT-GLUCOSE METER Routine 01/27/2019 3:52 AM Re sults for this POOLING OPERATOR procedure are i n the results section. BASIC METABOLIC PANEL Routine 01/27/2019 3:47 AM Results for this (7) POOLING OPERATOR procedure are i n the results section. APTT Routine 01/27/2019 3:47 AM Results for this POOLING OPERATOR procedure are i n the results section. CBC (HEMOGRAM ONLY) Routine 01/27/2019 3:47 AM R esults for this POOLING OPERATOR procedure are i n the results section. POCT-GLUCOSE METER Routine 01/26/2019 9:23 PM Re sults for this POOLING OPERATOR procedure are i n the results section. APTT Routine 01/26/2019 6:42 PM Results for this POOLING OPERATOR procedure are i n the results section. PLATELET COUNT Routine 01/26/2019 6:42 PM Result s for this POOLING OPERATOR procedure are i n the results section. POCT-GLUCOSE METER Routine 01/26/2019 1:34 PM Re sults for this POOLING OPERATOR procedure are i n the results section. POCT-GLUCOSE METER Routine 01/26/2019 8:21 AM Re sults for this POOLING OPERATOR procedure are i n the results section. ECG 12-LEAD Routine 01/26/2019 8:12 AM Results for this POOLING OPERATOR procedure are i n the results section. POCT-GLUCOSE METER Routine 01/26/2019 5:42 AM Re sults for this POOLING OPERATOR procedure are i n the results section. CBC (HEMOGRAM ONLY) Routine 01/26/2019 5:34 AM R esults for this POOLING OPERATOR procedure are i n the results section. TROPONIN I STAT 01/26/2019 5:34 AM Results for this POOLING OPERATOR procedure are i n the results section. LIPOPROTEIN (A) Routine 01/26/2019 5:34 AM Resul ts for this POOLING OPERATOR procedure are i n the results section. XR CHEST 1 VIEW Routine 01/25/2019 11:56 PM Resul ts for this PORTABLE/BEDSIDE POOLING OPERATOR procedure a re in the results section. CBC W/PLT COUNT & AUTO Routine 01/25/2019 11:19 PM Results for this DIFFERENTIAL POOLING OPERATOR procedure are i n the results section. APTT Routine 01/25/2019 11:19 PM Results for this POOLING OPERATOR procedure are i n the results section. APTT Routine 01/25/2019 11:19 PM Results for this POOLING OPERATOR procedure are i n the results section. PROTHROMBIN TIME/INR Routine 01/25/2019 11:19 PM Results for this POOLING OPERATOR procedure are i n the results section. CBC W/PLT COUNT & AUTO Routine 01/25/2019 11:19 PM Results for this DIFFERENTIAL POOLING OPERATOR procedure are i n the results section. B-TYPE NATRIURETIC Routine 01/25/2019 11:19 PM Re sults for this FACTOR (BNP) POOLING OPERATOR procedure are i n the results section. TROPONIN I STAT 01/25/2019 11:19 PM Results for this POOLING OPERATOR procedure are i n the results section. COMPREHENSIVE METABOLIC Routine 01/25/2019 11:19 PM Results for this PANEL POOLING OPERATOR procedure are i n the results section. MAGNESIUM Routine 01/25/2019 11:19 PM Results for this POOLING OPERATOR procedure are i n the results section. ECG 12-LEAD Routine 01/25/2019 10:51 PM Results for this POOLING OPERATOR procedure are i n the results section. POCT-GLUCOSE METER Routine 01/25/2019 10:10 PM Re sults for this POOLING OPERATOR procedure are i n the results section. RHYTHM STRIP - SCAN 01/01/2019 11:34 AM POOLING OPERATOR REPORT OF PROCEDURE - 12/27/2018 7:06 AM ENDOSCOPY SCAN POOLING OPERATOR CARDIAC CATH REPORT - 12/27/2018 7:06 AM SCAN POOLING OPERATOR RHYTHM STRIP - SCAN 12/27/2018 7:06 AM POOLING OPERATOR POCT-GLUCOSE METER Routine 12/25/2018 11:53 AM Re sults for this POOLING OPERATOR procedure are i n the results section. POCT-GLUCOSE METER Routine 12/25/2018 6:53 AM Re sults for this POOLING OPERATOR procedure are i n the results section. CALCIUM, IONIZED Routine 12/25/2018 4:14 AM Resu lts for this POOLING OPERATOR procedure are i n the results section. CBC W/PLT COUNT & AUTO Routine 12/25/2018 4:13 AM Results for this DIFFERENTIAL POOLING OPERATOR procedure are i n the results section. PHOSPHORUS Routine 12/25/2018 4:13 AM Results for this POOLING OPERATOR procedure are i n the results section. MAGNESIUM Routine 12/25/2018 4:13 AM Results for this POOLING OPERATOR procedure are i n the results section. B-TYPE NATRIURETIC Routine 12/25/2018 4:13 AM Re sults for this FACTOR (BNP) POOLING OPERATOR procedure are i n the results section. CBC W/PLT COUNT & AUTO Routine 12/25/2018 4:13 AM Results for this DIFFERENTIAL POOLING OPERATOR procedure are i n the results section. BASIC METABOLIC PANEL Routine 12/25/2018 4:13 AM Results for this (7) POOLING OPERATOR procedure are i n the results section. POCT-GLUCOSE METER Routine 12/24/2018 10:48 PM Re sults for this POOLING OPERATOR procedure are i n the results section. POCT-ACT Routine 12/24/2018 10:03 PM Results for this POOLING OPERATOR procedure are i n the results section. POCT-GLUCOSE METER Routine 12/24/2018 8:12 PM Re sults for this POOLING OPERATOR procedure are i n the results section. POCT-ACT Routine 12/24/2018 5:18 PM Results for this POOLING OPERATOR procedure are i n the results section. POCT-ACT Routine 12/24/2018 4:51 PM Results for this POOLING OPERATOR procedure are i n the results section. L CATH & PCI 12/24/2018 2:49 PM Non-STEMI (non-ST POOLING OPERATOR elevated myocardial infarction) (HCC) POCT-GLUCOSE METER Routine 12/24/2018 12:46 PM Re sults for this POOLING OPERATOR procedure are i n the results section. POCT-GLUCOSE METER Routine 12/24/2018 8:25 AM Re sults for this POOLING OPERATOR procedure are i n the results section. APTT Routine 12/24/2018 8:24 AM Results for this POOLING OPERATOR procedure are i n the results section. APTT Routine 12/24/2018 1:13 AM Results for this POOLING OPERATOR procedure are i n the results section. COMPREHENSIVE METABOLIC Routine 12/24/2018 1:13 AM Results for this PANEL POOLING OPERATOR procedure are i n the results section. ECG 12-LEAD Routine 12/23/2018 10:36 PM Results for this POOLING OPERATOR procedure are i n the results section. POCT-GLUCOSE METER Routine 12/23/2018 5:53 PM Re sults for this POOLING OPERATOR procedure are i n the results section. APTT Routine 12/23/2018 4:08 PM Results for this POOLING OPERATOR procedure are i n the results section. POCT-GLUCOSE METER Routine 12/23/2018 12:58 PM Re sults for this POOLING OPERATOR procedure are i n the results section. POCT-GLUCOSE METER Routine 12/23/2018 8:40 AM Re sults for this POOLING OPERATOR procedure are i n the results section. CBC W/PLT COUNT & AUTO Routine 12/23/2018 5:20 AM Results for this DIFFERENTIAL POOLING OPERATOR procedure are i n the results section. TROPONIN I Routine 12/23/2018 5:20 AM Results for this POOLING OPERATOR procedure are i n the results section. APTT Routine 12/23/2018 5:20 AM Results for this POOLING OPERATOR procedure are i n the results section. B-TYPE NATRIURETIC Routine 12/23/2018 5:20 AM Re sults for this FACTOR (BNP) POOLING OPERATOR procedure are i n the results section. CBC W/PLT COUNT & AUTO Routine 12/23/2018 5:20 AM Results for this DIFFERENTIAL POOLING OPERATOR procedure are i n the results section. PHOSPHORUS Routine 12/23/2018 5:20 AM Results for this POOLING OPERATOR procedure are i n the results section. MAGNESIUM Routine 12/23/2018 5:20 AM Results for this POOLING OPERATOR procedure are i n the results section. COMPREHENSIVE METABOLIC Routine 12/23/2018 5:20 AM Results for this PANEL POOLING OPERATOR procedure are i n the results section. CALCIUM, IONIZED Routine 12/23/2018 5:20 AM Resu lts for this POOLING OPERATOR procedure are i n the results section. ECG 12-LEAD Routine 12/23/2018 4:44 AM Results for this POOLING OPERATOR procedure are i n the results section. [...] PCI 11/12/2018 3:58 PM Unstable angina CDT ([facility]) C. DIFFICILE GDH TOXIN Routine 11/12/2018 2:14 [...] 456 ms QTC Calculation(Bazett) 519 ms P [place] 75 degrees R [place] 50 degrees T [place] 44 degrees Normal sinus rhythm Incomplete left [...] 452 ms QTC Calculation(Bazett) 494 ms P [place] 73 degrees R [place] 34 degrees T [place] 92 degrees Normal sinus rhythm Cannot rule out Anterior inf arct , age undetermined Abnormal ECG When compared with ECG of 08:00, Minimal criteria for Anterio r infarct are now Present ST no longer depressed in An terior leads ECG 12-LEAD STAT 11/11/2018 12:12 AM CDT Resu lts for this procedure are in the results section . after 10/17/2018 Results VASCULAR DIAGRAM -SCAN (05/31/2019 12:41 PM [...] (H)Comment: : Notified 70 - 110 mg/dL [facility] RN/MD: TESTED AT [facility] [address] [place] [address], [id number]: Florist/Section Leader And Machine Setter ID = [id number] for LIZ WATSON Specimen Blood Performing Organization Address City/State/Zipcode Phone Number [address] [phone] CENTER EKG-SCANNED (05/29/2019 12:10 PM CDT)Only the most recent of6 resultswithin the time period is included. Narrative Performed At This result has an attachment that is no t available. Platelet Aggregation: Drug Effect (05/29/2019 9:27 AM CDT) Arachadonic Acid 13 (L) 63 - 89 % [facility] ER Interpretation Decreased response to arachi donic acid suggests aspirin-like effect. [facility] Decreased aggregation with A DP which indicates platelet dysfunction that may be due to medication effect, uremia, or other platelet function disorders.Clinical correlation is required. [facility] CENTER Pathologist: Talia Villarreal MD [facility] (electronic signature) [facility] Platelets 184 150 - 450 K/CU MM [facility] ER ADP 11 (L) 62 - 100 % [facility] Platelet Rich Plasma 243 200 - 300 k/cu mm [facility] Specimen Blood Narrative Performed At Platelet function studies by aggregation [facility] methodology on samples with platelet count <75,000/CU MM are unreliable; platelet function assessment should not be based on a single test. Florist ID - [id number] Performing Organization Address [facility]/Zipcode Phone Number [address] [address] [place] Calcium, Ionized (05/29/2019 4:41 AM CDT)Only the most recent of8 resultswithin the time period is included. Calcium, Ion 1.16 1.12 - 1.27 mmol/L [facility] pH, Blood 7.[address] [facility] Specimen Blood Performing Organization Address City/[facility]/Zipcode Phone Number [address] [address] [place] CBC with platelet count + automated diff (05/29/2019 4:41 AM CDT)Only the most recent of15 resultswithin the time period is included. WBC 6.4 3.5 - 10.5 K/L [facility] RBC 3.26 (L) 3.93 - 5.22 M/L [facility] Hemoglobin 10.1 (L) 11.2 - 15.7 GM/DL [facility] Hematocrit 30.3 (L) 34.1 - 44.9 % [facility] MCV 92.9 79.4 - 94.[address] [facility] MCH 31.0 25.6 - 32.[address] [facility] MCHC 33.3 32.2 - 35.5 GM/DL [facility] RDW 13.1 11.7 - 14.4 % [facility] Platelets 183 150 - 450 K/CU MM [facility] MPV 9.9 9.4 - 12.[address] [facility] nRBC 0 0 - 0 /[address] [facility] % Neutros 70 % [facility] % Lymphs 19 % [facility] % Monos 9 % [facility] % Eos 1 % [facility] % Baso 1 % [facility] # Neutros 4.47 1.56 - 6.13 K/L [facility] # Lymphs 1.20 1.18 - 3.74 K/L [facility] # Monos 0.59 (H) 0.24 - 0.36 K/L [facility] # Eos 0.08 0.04 - 0.36 K/L [facility] # Baso 0.04 0.01 - 0.08 K/L [facility] Immature Granulocytes-Relative 0 0 - 1 % C HI [facility] Specimen Blood Performing Organization Address City/State/Zipcode Phone Number [facility] [address] [place] [address] CENTER CBC (hemogram only) (05/29/2019 4:41 AM CDT)Only the most recent of10 results within the time period is included. WBC 6.4 3.5 - 10.5 K/L [facility] RBC 3.26 (L) 3.93 - 5.22 M/L [facility] Hemoglobin 10.1 (L) 11.2 - 15.7 GM/DL [facility] Hematocrit 30.3 (L) 34.1 - 44.9 % [facility] MCV 92.9 79.4 - 94.[address] [facility] MCH 31.0 25.6 - 32.[address] [facility] MCHC 33.3 32.2 - 35.5 GM/DL [facility] RDW 13.1 11.7 - 14.4 % [facility] Platelets 183 150 - 450 K/CU MM [facility] MPV 9.9 9.4 - 12.[address] [facility] nRBC 0 0 - 0 /[address] [facility] Specimen Blood Performing Organization Address City/[facility] Phone Number [address] [address] CENTER Uric acid (05/29/2019 4:41 AM CDT)Only the most recent of2 resultswithin the time period is included. Uric Acid 9.0 (H) 2.6 - 7.2 mg/dL [facility] Specimen Blood Narrative Performed At Florist ID - MELI [facility] Performing Organization Address [facility] Hospital[facility] Phone Number [address] [address] CENTER Phosphorus (05/29/2019 4:41 AM CDT)Only the most recent of9 resultswithin the time period is included. Phosphorus 3.7 2.3 - 4.7 mg/dL [facility] Specimen Blood Narrative Performed At Florist ID - [facility] Performing Organization Address City/[facility] Hospitalcode Phone Number [address] [address] CENTER B-type Natriuretic Factor (BNP) (05/29/2019 4:41 AM CDT)Only the most recent of 11 resultswithin the time period is included. BNP 1,228 (H) 0 - 100 pg/mL [facility] Specimen Blood Narrative Performed At Florist ID - [facility] Performing Organization Address [facility] Phone Number [address] [address] CENTER Magnesium (05/29/2019 4:41 AM CDT)Only the most recent of13 resultswithin the time period is included. Magnesium 2.1 1.6 - 2.6 mg/dL [facility] Specimen Blood Narrative Performed At Florist [facility] Performing Organization Address [facility] [place] Phone Number [address] [address] CENTER Creatine Kinase (CK) (05/29/2019 4:41 AM CDT) Total CK 94 29 - 200 U/L [facility] Specimen Blood Narrative Performed At Florist ID - [facility] Performing Organization Address [facility] Phone Number [address] [address] [place] Basic metabolic panel (05/29/2019 4:41 AM CDT)Only the most recent of15 results within the time period is included. Sodium 135 (L) 136 - 145 meq/L [facility] Potassium 3.8 3.5 - 5.1 meq/L [facility] Chloride 98 98 - 107 meq/L [facility] CO2 27 22 - 29 meq/L [facility] BUN 73 (H) 7 - 21 mg/dL [facility] Creatinine 3.31 (H) 0.57 - 1.25 mg/dL [facility] Glucose 269 (H) 70 - 105 mg/dL [facility] Calcium 9.1 8.4 - 10.2 mg/dL [facility] EGFR 13Comment: ESTIMATED GFR IS mL/min/1.73 sq m [facility] NOT ACCURATE CREATININE [facility] CLEARANCE IN PREDICTING GLOMERULAR FILTRATION RATE. ESTIMATED GFR IS NOT APPLICABLE FOR DIALYSIS PATIENTS. Specimen Blood Narrative Performed At Florist ID - MELI Ott [facility] Performing Organization Address City/State/Zipcode Phone Number [facility] [address] [place] [address] CENTER US renal complete (05/29/2019 1:30 AM CDT)Only the most recent of2 results within the time period is included. Specimen Narrative Performed At FINAL REPORT [email or web address] U/S, RENAL, COMPLETE Comparison 08/02/2018, 03/22/2019 Clinical [...] Date/Time: 05/29/2019 0 3:58:20 Performing Organization Address City/[facility] Hospital[facility] Phone Number [facility] ACTIVATED CLOTTING TIME (05/28/2019 8:28 PM CDT)Only the most recent of17 resultswithin the time period is included. Activated Clotting Time 136Comment: : 74-137 sec [facility] seconds, Baseline: TESTED [facility] AT [address], [address]: Florist/Section Leader And Machine Setter ID = [id number] for DARIAN SQUIRES Specimen Blood Performing Organization Address [facility]/Zipcode Phone Number [address] [address] CENTER Urinalysis w/Microscopic (05/28/2019 6:20 PM CDT)Only the most recent of5 resultswithin the time period is included. Color, UA Light Yellow [facility] Clarity, UA Clear [facility] Specific [place], UA 1.012 1.001 - 1.035 [facility] pH, UA 6.0 5.0 - 8.0 [facility] Protein, UA 20 mg/dL (A) Negative [facility] Glucose, UA 150 mg/dL (A) Negative [facility] Ketones, UA Negative Negative [facility] Bilirubin, UA Negative Negative [facility] Blood, UA Trace (A) Negative [facility] Nitrite, UA Negative Negative [facility] Leukocytes, UA Negative Negative [facility] Urobilinogen, UA 0.2 0.2 - 1.0 mg/dL [facility] RBC, UA 1 /HPF [facility] WBC, UA <1 /HPF [facility] Bacteria, UA Many [facility] Specimen Source [facility] Specimen Urine Narrative Performed At Florist ID - [auto] [facility] Florist ID - ny Performing Organization Address City/State/Zipcode Phone Number [facility] [address] [place] [address] CENTER Venous doppler legs bilateral (05/28/2019 5:05 PM CDT) Ejection Fraction [facility] ECHO HEAR TLAB MKCKESSON CPACS Specimen Impressions Performed At Right Impression [facility] ECHO HEARTLAB [facility] CPACS 1. There [...] PV LAB - Lower Extremities DVT Study [facility] ECHO HEARTLAB [facility]ON [facility] Demographics Patient Name SUZAN ARECHIGA Date of Study05/28/2019 CAPRICE BDEO [id number] Visit Number [id number] Gender Female Accession Number [id number] Date of Birth[address] [facility] Number 6218 Physician SonographerSly Shelby [...] 05/28/2019 ESCOBDEO A ge 78 Visit Number [id number] G tomas Female Accession Number [id number] D ate of 1940 Referring Peyton [place] Number [id number] Physician Main Entree Cook And Cashier Sly Shelby T I nterpreting Suhail Stroud [...] period is included. Sodium Urine 35 meq/L [facility] Specimen Urine Narrative Performed At Reference Range: No Normals [facility] Florist ID - BS Performing Organization Address City/[facility]/Zipcode Phone Number [facility] [address] [place] [address] CENTER Protein, random urine (05/28/2019 12:35 PM CDT)Only the most recent of4 results within the time period is included. Protein, Urine 10 0 - 14 mg/dL [facility] Specimen Urine Narrative Performed At Florist ID - BS [facility] Performing Organization Address City/State/Zipcode Phone Number [address] [address] [place] Creatinine, random urine (05/28/2019 12:35 PM CDT)Only the most recent of4 resultswithin the time period is included. Creatinine, Ur 65.1 mg/dL [facility] Specimen Urine Narrative Performed At Reference Range: No Normals [facility] Florist ID - BS Performing Organization Address [facility]/Zipcode Phone Number [address] [address] [place] aPTT (05/28/2019 8:11 AM CDT)Only the most recent of32 resultswithin the time period is included. PTT 67.2 (H) 22.5 - 36.0 seconds [facility] Specimen Blood Performing Organization Address [facility] Phone Number [address] [address] [place] Troponin I (05/28/2019 4:20 AM CDT)Only the most recent of16 resultswithin the time period is included. Troponin I 1.06 (HH) 0.00 - 0.03 ng/mL [facility] Specimen Blood Narrative Performed At Troponin I (TnI) levels must be interpreted [facility] in the context of the presenting symptoms and the clinical findings. Elevated TnI levels indicate myocardial damage, but are not specific for ischemic heart disease. Elevated TnI levels are seen in patients with other cardiac conditions (including myocarditis and congestive heart failure), and slight TnI elevations occur in patients with other conditions, including sepsis, renal failure, acidosis, acute neurological disease, and persistent tachyarrhythmia. Florist ID - BS Performing Organization Address City/[facility]/Zipcode Phone Number [address] [address] CENTER PT/aPTT (05/27/2019 11:41 PM CDT)Only the most recent of6 resultswithin the time period is included. Protime 13.3 11.9 - 14.2 seconds [facility] INR 1.0 <=5.[address] [facility] PTT 25.2 22.5 - 36.0 seconds [facility] Specimen Blood Narrative Performed At Effective 07/18/2018: PT Reference Range [facility] Change New: 11.9-14.2Previous: 11.7-14.7 RECOMMENDED COUMADIN/WARFARIN INR THERAPY RANGES STANDARD DOSE: 2.0-3.0Includes: PROPHYLAXIS for venous thrombosis, systemic embolization; TREATMENT for venous thrombosis and/or pulmonary embolus. HIGH RISK: Target INR is 2.5-3.5 for patients wiht mechanical heart valves. Performing Organization Address City/[facility] Phone Number [address] [address] CENTER Platelet count (05/27/2019 11:22 PM CDT)Only the most recent of2 resultswithin the time period is included. Platelets 209 150 - 450 K/CU MM [facility] Specimen Blood Narrative Performed At Florist ID - [id number] [facility] Performing Organization Address City/[facility] Phone Number [facility] [address] [place] [address] CENTER ECG 12 lead (05/27/2019 11:14 PM CDT)Only the most recent of14 resultswithin the time period is included. Specimen Narrative Performed At Ventricular Rate 91 BPM GE MUSE Atrial Rate 91 BPM P-R Interval 184 ms QRS Duration 112 ms Q-T Interval 410 ms QTC Calculation(Bazett) 504 ms P [place] 80 degrees R [place] 53 degrees T [place] 215 degrees Normal sinus rhythm Incomplete left [...] 410 ms QTC Calculation(Bazett) 504 ms P [place] 80 degrees R [place] 53 degrees T [place] 215 degrees Normal sinus rhythm Incomplete left bundle branch block ST depression inferior and anterolateral leads + ST elevation in aVR consider ischemia Prolonged QT Abnormal ECG When compared with ECG of 22:06 ST now depressed in Lateral leads ST now elevated in aVR Confirmed by MD PATEL YOCHAI ([id number]) on 05/28/2019 6:33:47 AM Performing Organization Address City/State/Zipcode Phone Number [employer] XR chest 1 view portable / bedside (05/27/2019 11:05 AM CDT)Only the most recent of6 resultswithin the time period is included. Specimen Narrative Performed At FINAL REPORT [email or web address] RAD, CHEST, 1 VIEW, NON DEPT INDICATION: [...] CATH REPORT - SCAN (03/26/2019 8:41 AM POOLING OPERATOR) Narrative Performed At This result has an attachment that is no t available. CARDIAC CATH REPORT - SCAN (03/26/2019 8:41 AM POOLING OPERATOR) Narrative Performed At This result has an attachment that is no t available. Comprehensive metabolic panel (03/23/2019 5:27 AM POOLING OPERATOR)Only the most recent of8 resultswithin the time period is included. Protein, Total 6.3Comment: Specimen 6.0 - 8.3 gm/dL [facility] slightly hemolyzed [facility] Albumin 3.4 (L)Comment: Specimen 3.5 - 5.0 g/dL [facility] slightly hemolyzed [facility] Alkaline Phosphatase 52 40 - 150 U/L [facility] Total Bilirubin 0.4Comment: Specimen 0.2 - 1.2 mg/dL [facility] slightly hemolyzed [facility] Sodium 140 136 - 145 meq/L [facility] Potassium 4.1Comment: Specimen 3.5 - 5.1 meq/L [facility] slightly hemolyzed [facility] Chloride 102 98 - 107 meq/L [facility] CO2 25 22 - 29 meq/L [facility] BUN 49 (H) 7 - 21 mg/dL [facility] Creatinine 2.86 (H)Comment: 0.57 - 1.25 mg/dL [facility] Specimen slightly [facility] hemolyzed Glucose 164 (H) 70 - 105 mg/dL [facility] Calcium 9.0 8.4 - 10.2 mg/dL [facility] AST 27Comment: Specimen 5 - 34 U/L [facility] slightly hemolyzed [facility] ALT 14Comment: Specimen 6 - 55 U/L [facility] slightly hemolyzed [facility] EGFR 16Comment: ESTIMATED GFR mL/min/1.73 sq m [facility] IS NOT ACCURATE [facility] CREATININE CLEARANCE IN PREDICTING GLOMERULAR FILTRATION RATE. ESTIMATED GFR IS NOT APPLICABLE FOR DIALYSIS PATIENTS. Specimen Blood Narrative Performed At Florist ID - PIAYA L [facility] Performing Organization Address City/State/Zipcode Phone Number [facility] [address] [place] [address] CENTER ECHOCARDIOGRAM REPORT - SCAN (03/22/2019 9:20 PM POOLING OPERATOR) Narrative Performed At This result has an attachment that is no t available. Carotid doppler bilateral (03/22/2019 7:42 PM POOLING OPERATOR) Ejection Fraction [facility] ECHO HEAR TLAB [facility]ON CPACS Specimen Impressions Performed At Right Impression [facility] ECHO HEARTLAB [facility] CPACS 1. There [...] Performed At LAB - Carotid Duplex Study [facility] ECHO HEARTLAB [facility] Demographics Patient Name SUZAN ARECHIGA Date of Study03/22/2019 CAPRICE CINDY [id number] Age78 Visit Number [id number] Gender Female Accession Number [id number] Date of Birth1940 [facility] Room Number C633 Physician JohnieographApolinar De RVTInterpreting [...] External Ris In - 03/23/2019 9:28 AM POOLING OPERATOR PV LAB - Carotid Duplex Study Demographics Patient Name SUZAN ARECHIGA D ate of Study 03/22/2019 ESCOBDEO A ge 78 Visit Number [id number] G tomas Female Accession Number [id number] D ate of 1940 Referring [facility] [id number] Physician Main Entree Cook And Cashier Isabela De T I nterpreting Suhail Stroud [...] Measurements:ICAPSV/CCAPS V 1.49.ICAEDV/CCAEDV 1.48. Performing Organization Address City/State/[facility] Phone Number [facility] 2D Echo W/Doppler(CW/PW/Color) (03/22/2019 2:04 PM POOLING OPERATOR) Ejection Fraction [facility] ECHO HEAR TLAB [facility] Specimen Narrative Performed At Transthoracic Echocardiography Report (T TE) [facility] Demographics Patient Name SUZAN ARECHIGA Date of Study 03/22/2019 ESCOBDEO [id number] GenderFemale Visit Number [id number] [facility] [id number] Room Number C63 3 Number Date of Birth1940 Referring Physician Peyton Choe Age78 year(s) Main Entree Cook And Cashier Daniel Acosta MD Physician Procedure Type of [...] External Ris In - 03/22/2019 5:25 PM POOLING OPERATOR Transthoracic Echocardiography Report (TTE) Demographics Patient Name SUZAN ARECHIGA ate of Study 03/22/2019 SARAI G tomas Female Visit Number [id number] R matthias R oom Number [id number] Number [...] T CI: 4.1 l/min/m^2 Performing Organization Address [facility] [place] Phone Number [facility] ECHO HEARTLAB MKCKESSON CPACS Lipid panel (03/22/2019 2:06 AM POOLING OPERATOR)Only the most recent of2 resultswithin the time period is included. Triglycerides 102 mg/dL [facility] Cholesterol 161 mg/dL [facility] HDL 40 mg/dL [facility] LDL Calculated 101 mg/dL [facility] Specimen Blood Narrative Performed At Triglyceride Reference Range: [facility] Low Risk <150 [id number] High Risk 200-499 Very High Risk>=500 Cholesterol Reference Range: Low Risk <200 Apcipezojk069-520 High Risk>240 HDL Cholesterol Reference Range: Low Risk >=60 High Risk <40 LDL Cholesterol Reference Range: Optimal<100 Near Hhhctey863-894 Txyifhlhyl983-864 Qiim870-797 Very High >=190 Florist ID - PIAYA L Performing Organization Address [facility] [place] [facility] [place] Phone Number [address] [address] CENTER US abdomen complete (03/22/2019 12:10 AM POOLING OPERATOR) Specimen Narrative Performed At FINAL REPORT [email or web address] INDICATION: abd pain COMPARISON: Renal ultrasound dated [...] External Ris In - 03/22/2019 1:53 AM POOLING OPERATOR FINAL REPORT INDICATION: abd pain COMPARISON: Renal [...] 1:50:03 Performing Organization Address City/State/Zipcode Phone Number [facility] [email or web address] CT brain without IV contrast (03/21/2019 4:58 PM POOLING OPERATOR) Specimen Narrative Performed At FINAL REPORT [facility] [email or web address] CT, BRAIN, WITHOUT CONTRAST INDICATION: Left sided [...] cranial-cervical fusion hardware limits evaluation of the final inspector paper ior fossa. No intracranial hemorrhage or abnormal [...] External Ris In - 03/21/2019 5:38 PM POOLING OPERATOR FINAL REPORT CT, BRAIN, WITHOUT CONTRAST INDICATION: [...] cranial-cervical fusion hardware limits evaluation of the final inspector paper ior fossa. No intracranial hemorrhage or abnormal [...] 2 views min left (03/21/2019 2:25 PM POOLING OPERATOR) Specimen Narrative Performed At FINAL REPORT GE [...] MD Report Verified Date/Time:03/21/2019 14:38:21 Reading Location: [facility] Reading Room Procedure Note Interface, External Ris In - 03/21/2019 2:40 PM POOLING OPERATOR FINAL REPORT RAD, SHOULDER, COMPLETE (MIN 2 [...] Verified Date/Time: 03/21/2019 1 4:38:21 Reading [facility] Reading Room Performing Organization Address City/State/Zipcode Phone Number GE RIS REPORT OF PROCEDURE - ENDOSCOPY URL (03/21/2019 12:27 PM POOLING OPERATOR) Narrative Performed At This result has an attachment that is no t available. Hemoglobin A1c (03/20/2019 12:43 AM POOLING OPERATOR)Only the most recent of3 resultswithin the time period is included. Hemoglobin A1C 8.5 (H) 4.3 - 6.1 % [facility] Specimen Blood Performing Organization Address [facility] Phone Number [address] [address] [place] ECHOCARDIOGRAM REPORT - SCAN (01/28/2019 9:21 PM POOLING OPERATOR) Narrative Performed At This result has an attachment that is no t available. Clostridium difficile [facility] Toxin (01/28/2019 6:41 PM POOLING OPERATOR)Only the most recent of 2 resultswithin the time period is included. C. Difficle Toxin Negative Negative [facility] C. Difficile [facility] Antigen Positive (A)Comment: C. Negative [facility] difficile present but toxin [facility] not detected. Indicates colonization with non-toxigenic strain or level of toxin below detectable levels. No need for enteric isolation. Treatment is rarely needed (only when strong clinical suspicion for Clostridium difficile infection) Specimen Stool Narrative Performed At Testing performed by [employer] [facility] Assay.For [facility], published sensitivity of the assay is 98.7% compared to cytotoxicity testing.For Toxin AB, published sensitivity is 87.8% and specificity 99.4% compared to cytotoxicity testing. Verification of kit performance was done by the [facility] prior to clinical use. Performing Organization Address [facility] Phone Number [address] [phone] [place] Occult blood, stool (01/28/2019 6:40 PM POOLING OPERATOR) Occult blood Negative Negative [facility] Specimen Stool Performing Organization Address City/[facility]/Zipcode Phone Number [address] [address] [place] Transthoracic 2D echo w/ doppler (cw/pw/color) (01/28/2019 11:25 AM POOLING OPERATOR) Ejection Fraction [facility] ECHO HEAR TLAB [facility] Specimen Narrative Performed At Transthoracic Echocardiography Report (T TE) [facility] ECHO HEARTLAB MKCKESSON [facility] Demographics Patient NameCARRILLORADHASUZAN Date of Study01/28/2019 ESCOBDEO Gender Female Visit [id number] Race Merced lundberg [id number] Number Date of 1940 Referring Physician Age 78 year(s) SonographPauly Dozier [facility] Interpreting Physician XIMENA Cormier Procedure Type [...] External Ris In - 01/28/2019 3:33 PM POOLING OPERATOR Transthoracic Echocardiography Report (TTE) Demographics Patient Name SUZAN ARECHIGA Date of Study 01/28/2019 SARAI Gend er Female Visit Number [id number] Race Room Number 8A11 Number Date of [...] T CI: 2.52 l/min/m^2 Performing Organization Address City/[facility] Phone Number [facility] E[facility] HEART[facility] MKCKESSON CPACS Lipoprotein (a) (01/26/2019 5:34 AM POOLING OPERATOR) Lipoprotein (a) 57 <75 nmol/L [facility] Specimen Blood Narrative Performed At Performing Lab [facility] EZ [employer] [facility] [place] [address] [place] [address] I Bright BUENO, PhD, ROBY Performing Organization Address [facility] [place] [facility] [place] Phone Number [employer] [place] [address] [facility] [address] [facility] Prothrombin time/INR (01/25/2019 11:19 PM POOLING OPERATOR) Protime 13.2 11.9 - 14.2 seconds [facility] INR 1.1 <=5.[address] [facility] Specimen Blood Narrative Performed At Effective 07/18/2018: PT Reference Range [facility] Change New: 11.9-14.2Previous: 11.7-14.7 RECOMMENDED COUMADIN/WARFARIN INR THERAPY RANGES STANDARD DOSE: 2.0-3.0Includes: PROPHYLAXIS for venous thrombosis, systemic embolization; TREATMENT for venous thrombosis and/or pulmonary embolus. HIGH RISK: Target INR is 2.5-3.5 for patients wiht mechanical heart valves. Prior to initiating heparin Performing Organization Address City/[facility] Phone Number [facility] MEDICAL [address] [place] [address] [place] CARDIAC CATH REPORT - SCAN (12/27/2018 7:06 AM POOLING OPERATOR) Narrative Performed At This result has an attachment that is no t available. Iron, TIBC, % sat. (without ferritin) (12/22/2018 4:53 AM CDT) Iron 85.0 40.0 - 160.0 ug/dL [facility] TIBC 226 (L) 250 - 450 ug/dL [facility] Iron % Saturation 38 20 - 55 % [facility] Specimen Blood Performing Organization Address City/[facility]/[place] [address] [place] Ferritin (12/22/2018 4:53 AM CDT) Ferritin 195 5 - 275 ng/mL [facility] Specimen Blood Performing Organization Address City/[facility]/[place] [address] [place] Reticulocyte count (12/22/2018 4:52 AM CDT) % Retic 2.0 (H) 0.5 - 1.7 % [facility] Specimen Blood Performing Organization Address [facility] [address] [place] ECHOCARDIOGRAM REPORT - SCAN (12/21/2018 9:21 PM CDT) Narrative Performed At This result has an attachment that is no t available. 2D Echo W/Doppler(CW/PW/Color) (12/21/2018 10:22 AM CDT) Ejection Fraction [facility] ECHO HEAR TLAB [facility] Specimen Narrative Performed At Transthoracic Echocardiography Report (T TE) [facility] ECHO HEARTLAB CKESSON [facility] Demographics Patient Name SUZAN ARECHIGA Date of Study12/21/2018 ESCOBDEO [id number] Gender Female Visit Number [id number] Race [id number] m [id number] Number Date [facility] Phys[facility] Age78 year(s) SonographerColin Cutelr, RDCS,RVT,RDMS AnalystAlex ZadeInterpreting Kash Carr MD Physician [...] Study 12/21/2018 SARAI Gender Female Visit Number [id number] Race Room [facility] 6105 Number Date of 1940 Referri ivette Palmer S Physici an Age 78 year(s) Sonogra pher Destini Silva, NB, RDCS,RVT,RDMS Biofuels Manager Nader Finley Interpr eting Kash Carr MD [...] City/State/Zipcode Phone Number [facility] HEARTLAB MKCKESSON [facility] CRITICAL CARE (12/20/2018 8:19 PM [...] CDT) Specimen Narrative Performed At FINAL REPORT [employer] [facility] [email or web address] PROCEDURE: MYOCARDIAL PERFUSION PET IMAG ING (Rest/Stress) CPT CODE: 42427 INDICATION: Evaluate extent of known CAD , [...] Chest discomfort, nausea, fati crystal (Treatment was [id number] IV). Perfusion: There is an absence of [...] MD Report Verified Date/Time:11/12/2018 15:26:40 Reading Location: [address] Reading Room Procedure Note Interface, External Ris In - 11/12/2018 3:28 PM CDT FINAL REPORT PROCEDURE: MYOCARDIAL PERFUSION PET IMAG ING (Rest/Stress) CPT CODE: [id number] INDICATION: Evaluate extent of known CAD , [...] from rest. Symptoms: Chest discomfort, nausea, fati rcystal (Treatment was [id number] IV). Perfusion: There is an absence of [...] Verified Date/Time: 11/12/2018 1 5:26:40 Reading Location: [address] [facility] Reading Room Performing Organization Address City/State/Zipcode [...] 1:04:52 PM Confirmed by MD LOZANO JORGE ([id number]) on 11/23/2018 3:0 5:01 PM Procedure Note [...] 1:04:52 PM Confirmed by MD MARTA, INDRA ([id number]) on 11/23/2018 3:05:01 PM Performing Organization Address City/State/Zipcode Phone Number [employer] ECHOCARDIOGRAM REPORT - SCAN (11/11/2018 9:20 PM CDT) Narrative Performed At This result has an attachment that is no t available. Transthoracic 2D echo w/ doppler (cw/pw/color) (11/11/2018 1:14 PM CDT) Ejection Fraction [facility] ECHO HEAR TLAB MKCKESSON [facility] Specimen Narrative Performed At Transthoracic Echocardiography Report (T TE) [facility] ECHO HEARTLAB MKCKESSON [facility] Demographics Patient NameCARRISUZAN MOSES Date of Study11/11/2018 ESCOBDEO Gender Female Visit [id number] Race Hispan[place] c [id number] Number Date of 1940 [facility] Physician Age 78 year(s) SonographerRenanian Levi RDCS Biofuels Manager Amber Kaplan RDCS Interpreting Garry davis Physician [...] 11/11/2018 ESCOBDEO Gend er Female Visit Number [id number] Race Room Number 6102 Number Date of 1940 Refe dali bradley Age 78 year(s) Johnieo roxann Sims RDMADHU Biofuels Manager Amber Kaplan RDCS Inte rpreting Tramaine Cormier [...] T CI: 2.37 l/min/m^2 Performing Organization Address [facility] Phone Number [facility] E[facility] HEART[facility] MKCKESSON CPACS TSH/T4 if indicated (11/11/2018 12:39 AM CDT) TSH 1.17 0.35 - 4.94 uIU/mL [facility] Specimen Blood Performing Organization Address [facility] [place] [facility] [place] Phone Number [address] [address] [place] Hepatic function panel (11/11/2018 12:39 AM CDT) Protein, Total 7.3Comment: Specimen 6.0 - 8.3 gm/dL [facility] slightly hemolyzed [facility] Albumin 3.9Comment: Specimen 3.5 - 5.0 g/dL [facility] slightly hemolyzed [facility] Total Bilirubin 0.5Comment: Specimen 0.2 - 1.2 mg/dL [facility] slightly hemolyzed [facility] Bilirubin, Direct 0.2Comment: Specimen 0.1 - 0.5 mg/dL [facility] slightly hemolyzed [facility] Alkaline Phosphatase 129 40 - 150 U/L [facility] AST 18Comment: Specimen 5 - 34 U/L [facility] slightly hemolyzed [facility] ALT 11Comment: Specimen 6 - 55 U/L [facility] slightly hemolyzed [facility] Specimen Blood Performing Organization Address [facility] Phone Number [address] [address] [place] after 10/17/2018 Insurance Payer Benefit Plan / Group Subscriber ID Type Phone A ddress [employer] [place] xxxxxxxx Maps Contracted MEDICAID MEDICAID [facility] xxxxxxxxx Medicaid Advance Directives Patient has advance care planning documents, and code status on file. For more information, please contact:[place] [id number] [place], [place] [phone] Code Status Date Activated Date Inactivated Comments [...]
--- OUTSIDE RECORDS SUMMARY | 2019-10-18 17:54 | XMS REPORT | Continuity of Care Document ---
:1940 Author Organization [facility] t Address [address] [place] [address] Dr. Gal[address]. [address] [place] [address] Care Team Providers Name Role Phone Marcos [...] xxxxxxxx [facility] MEDICAIDMEDICAID OF xxxxxxxxx [facility] [place] [facility] Problems Condition Condition Condition Status Onset Resolution [...] 00:00: Medical involving involving 00 Cent er ewiiaapaayp ewiiaapaayp coronary coronary artery of artery of ewiiaapaayp ewiiaapaayp heart heart H/O stroke H/O stroke Disease [...] [facility]ukes - and renal and renal 00:00: [facility] disease disease 00 Center with with [...] to type 2 to type 2 00:00: [facility] diabetes diabetes 00 Center mellitus mellitus [...] (insulin 08-01 [facility] - dependent dependent 00:00: 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 [facility] current current [facility]ukes [...] - kg/sq m kg/sq m [facility] Coronary Coronary Problem Active [facility] t artery artery [facility] - disease disease Memoria involving involving l ewiiaapaayp [facility] coronary coronary ent artery of artery of Clin ics ewiiaapaayp ewiiaapaayp heart with heart with unstable unstable angina angina pectoris pectoris History of History of Problem Active [facility] cholecyste cholecyste Amalia kes - ctomy ctomy [facility] Atrial Atrial Problem Active [facility] flutter, flutter, Lukes - unspecifie unspecifie Me moria d type d type l [facility] NSTEMI NSTEMI Problem [...] [facility] - adverse 00:00: Medical reaction 00 [place] Iodine Propensi Active Anaphylaxis [facility] [...] aminophe adverse 00:00: Medical n reaction 00 [place] iodine DA Active [facility] 07-28 [place] 00:00: Regiona 00 [facility] morphine DA Active [facility] 07-28 [place] 00:00: Regiona [facility] Benadryl Adverse Active Info Not [facility] Reaction Available [facility] ALL PAIN Adverse Active Swelling of [facility] NARCOTIC Reaction throat, [facility] - S hands [facility] CONTRAST Adverse Active Info Not [facility] DYE Reaction Available [facility] - [facility] Amiodaro Adverse Active Info Not [facility] t ne HCl Reaction Available [facility] - Memoria [facility] Clinics Levaquin Adverse Active Info Not [facility] Reaction Available [facility] - [facility] Social History Social Habit Start Date Stop Date Quantity Comments Source History SDOH Alcohol [facility] Std Drinks [facility] History SDOH Alcohol [facility] Binge [facility] Sex Assigned At [facility] History SDOH Alcohol 2018-11-10 2018-11-[address] [address] [facility] - Frequency 00:00:00 00:00:00 [facility] Smoking Status Start Date Stop Date Source Never smoker [facility] edical [place] Medications Ordered Filled Start Stop Current Ordering Indication Dosage Frequency Signature Comments Components Source Medication Medication Date Date Medication? Clinician (SIG) Name Name Ranolazine Ranolazine Yes John [address] [address] ER ER 4-15 [place] [facility] - 00:00: [facility] 00 [facility] Brilinta Brilinta 2020-0 Yes John [address] [address] 4-15 [place] [facility] - 00:00: Memoria 00 l Outpati ent Clinics clopidogrel 2019-0 2020- No 1{tbl} QD Take [address] (PLAVIX) 75 4-08 04-08 tablet by Amalia kes - mg tablet 14:11: 00:00 mouth Medica l 09 :00 daily. [place] insulin 2019-0 Yes 10U QD Inject 10 [...] tablet 12:20: every Medical 17 other day. [place] cholecalcif 2019- Yes 4000U QD Take 4,[address] shun, 1-28 Units by Lukes - vitamin D3, 23:31: mouth Medic al 4,000 unit 01 daily. [place] Tab calcitriol 2018-02 Yes .5ug QD Take 0.[address] (ROCALTROL) 2-06 mcg by Lukes - 0.5 MCG 22:10: mouth Medical capsule 23 daily. [place] metoprolol 2018-02 2020- No 50mg Q.5D Take [address] (LOPRESSOR) 1- 11-04 tablet (50 L ukes - 50 MG 00:00: 23:59 mg total) Medica l tablet 00 :00 by mouth 2 Center (two) times daily. insulin 2018-02 2020- No To use via [facility] lispro - 02- sliding Lukes - (HUMALOG 00:00: 00:00 scale from Ga dical MAURISIOPEN 00 :00 4 to 14 [...] daily. Medical 00 Center epoetin 2019- No [id number] Inject [address] rubina-epbx 7 02- [...] total) Medic al nebulizer 00 :00 by [place] solution nebulizati on every 6 (six) hours. [...] [facility] - Memoria l [facility] Vitamin D-3 Vitamin D-3 Yes John as [facility] directed [facility]ukes - Memoria l [facility] BD Pen BD Pen Yes John USE [facility] Needle Mini Needle Mini [place] DIRECTED [facility] - U/F U/[facility] Ferrous Ferrous Yes John TAKE 1 [facility] Sulfate Sulfate [place] TABLET BY Penny es - MOUTH Memoria TWICE A l DAY [facility] Bumetanide Bumetanide Yes John TAKE [address] [facility] [place] TABLET BY Lukes - MOUTH Memoria TWICE A l DAY [facility] Metoprolol Metoprolol Yes John [address] Tartrate Tartrate [place] with food L [facility] Protonix Protonix Yes John [address] [place] mixed with Lukes - apple Memoria juice or l applesauce [facility] Atorvastati Atorvastati Yes John TAKE [address] [facility] n Calcium n Calcium [place] TABLET BY Lukes - MOUTH Memoria EVERY DAY l [facility] Folic Acid Folic Acid Yes John TAKE [address] [facility] [place] TABLET BY Lukes - MOUTH Memoria EVERY DAY l [facility] Calcitriol Calcitriol Yes John TAKE [address] [facility] [address] [place] CAPSULE BY Lukes - MOUTH Memoria EVERY DAY l [facility] Brilinta Brilinta Yes John TAKE [address] [facility] [address] [place] TABLET BY Lukes - MOUTH Memoria TWICE A l DAY [facility] Calcitriol Calcitriol 2019- No John [address] -14 [place] [facility] - 00:00 Memoria :00 [facility] Immunizations Ordered Filled Immunization Date Status Comments [facility] e Immunization Name Name FluAD FluAD 2018-12-[address] [facility] - 00:[facility] Vital Signs Vital Name Observation Time Observation Value Comments Source Systolic blood 2019-05-29 14:00:00 101 mm[Hg] [facility] Diastolic blood 2019-05-29 14:00:00 47 mm[Hg] [facility] Heart rate 2019-05-29 14:00:00 75 /min [facility] Respiratory rate 2019-05-29 14:00:00 15 /min [facility] Oxygen saturation in 2019-05-29 14:00:00 95 /min [facility] - Arterial blood by Medical Ce nter Pulse oximetry Body temperature 2019-05-29 10:00:00 36.67 Sirisha [facility] Body weight Measured 2019-05-29 04:00:00 84.8 kg [facility] BMI 2019-05-29 04:00:00 35.32 kg/m2 [facility] Body height 2019-05-27 23:00:00 154.9 cm [facility] Procedures Procedure Date / Time Performing Clinician Source Performed VASCULAR DIAGRAM -SCAN 2019-05-31 12:41:14 Provider, Default [facility] CARDIAC CATH REPORT - SCAN 2019-05-31 10:31:07 Provider, [facility] RHYTHM STRIP - SCAN 2019-05-31 10:31:06 Provider, Default [facility] PERIPHERAL VASCULAR REPORT 2019-05-29 21:10:12 Provider, Default [facility] - - SCAN [facility] POCT-GLUCOSE METER 2019-05-29 13:24:00 Manjula Daya [facility] REPORT OF PROCEDURE - 2019-05-29 12:10:57 Provider, [facility] ENDOSCOPY SCAN [facility] REPORT OF PROCEDURE - 2019-05-29 12:10:55 Provider, [facility] ENDOSCOPY SCAN [facility] PLATELET AGGREGATION: DRUG 2019-05-29 09:27:00 Christian Ríos [facility] POCT-GLUCOSE METER 2019-05-29 07:41:[address] [facility] B-TYPE NATRIURETIC FACTOR 2019-05-29 04:41:00 Nas Minor [facility] (BNP) [facility] CALCIUM, IONIZED 2019-05-29 04:41:00 Nas Minor [facility] MAGNESIUM 2019-05-29 04:41:00 Nas Minor [facility] PHOSPHORUS 2019-05-29 04:41:00 Nas Minor [facility] CREATINE KINASE (CK) 2019-05-29 04:41:00 Nas Minor [facility] URIC ACID 2019-05-29 04:41:00 Nas Minor [facility] CBC (HEMOGRAM ONLY) 2019-05-29 04:41:00 Radha Mahmood [facility] BASIC METABOLIC PANEL (7) 2019-05-29 04:41:00 Delbert Morales [facility] CBC W/PLT COUNT & AUTO 2019-05-29 04:41:00 Delbert Morales [facility] DIFFERENTIAL [facility] US RENAL COMPLETE 2019-05-29 01:30:00 Nas Minor [facility] POCT-GLUCOSE METER 2019-05-28 21:32:[address] [facility] POCT-ACT 2019-05-28 20:28:00 ManjulaManuelDaya Hyunna [facility] URINALYSIS W/ MICROSCOPIC 2019-05-28 18:20:00 Nas Minor [facility] POCT-ACT 2019-05-28 18:08:00 [facility] VENOUS DOPPLER LEGS 2019-05-28 17:05:00 Delbert Bentley [facility] BASIC METABOLIC PANEL (7) 2019-05-28 16:19:00 Christian Ríos [facility] CBC (HEMOGRAM ONLY) 2019-05-28 16:19:00 Christian Ríos [facility] POCT-ACT 2019-05-28 16:17:00 [facility] POCT-ACT 2019-05-28 14:32:00 Peyton [facility] POCT-ACT 2019-05-28 13:45:00 Peyton, [facility] POCT-ACT 2019-05-28 13:34:00 Peyton [facility] L CATH & PCI 2019-05-28 13:10:00 [facility] CREATININE, RANDOM URINE 2019-05-28 12:35:00 Iván [facility] SODIUM, RANDOM URINE 2019-05-28 12:35:00 Iván [facility] PROTEIN, RANDOM URINE 2019-05-28 12:35:00 Iván [facility] POCT-GLUCOSE METER 2019-05-28 12:02:00 [facility] POCT-GLUCOSE METER 2019-05-28 09:31:00 [facility] APTT 2019-05-28 08:11:00 [facility] ([facility] ONLY[facility] 2019-05-28 06:37:00 [facility]IC [facility]OLIC PANEL (7) 2019-05-28 06:37:00 eDlbert Morales [facility] CBC W/PLT COUNT & AUTO 2019-05-28 06:37:00 Delbert Morales [facility] APTT 2019-05-28 06:02:00 Delbert Morales [facility] TROPONIN I 2019-05-28 04:20:00 [facility] AP[facility] 2019-05-27 23:42:00 Jennifer [facility] PT/APTT 2019-05-27 23:41:00 [facility] CBC W/PLT COUNT & AUTO 2019-05-27 23:41:00 [facility] METABOLIC PANEL (7) 2019-05-27 23:25:00 [facility] TROP[facility]IN I 2019-05-27 23:25:00 [facility] B-TYPE NATRIURETIC FACTOR 2019-05-27 23:24:00 [facility] PLATELET COUNT 2019-05-27 23:22:00 Goodnough, [facility] ECG 12-LEAD 2019-05-27 23:14:56 Jennifer [facility] ECG 12-LEAD 2019-05-27 22:06:53 Unknown, Hl7 Doctor [facility] XR CHEST 1 VIEW 2019-05-27 11:05:00 Jennifer [facility]/BEDSIDE [facility] VASCULAR DIAGRAM -SCAN 2019-03-27 14:02:13 Provider, [facility] RHYTHM STRIP - SCAN 2019-03-26 14:31:23 Provider, [facility] VASCULAR DIAGRAM -SCAN 2019-03-26 08:41:44 Provider, [facility] REPORT OF PROCEDURE - 2019-03-26 08:41:40 Provider, [facility] CARDIAC CATH REPORT - SCAN 2019-03-26 08:41:36 Provider, [facility] CARDIAC CATH REPORT - SCAN 2019-03-26 08:41:35 Provider, [facility] RHYTHM STRIP - SCAN 2019-03-26 08:41:22 Provider, [facility] PERIPHERAL VASCULAR REPORT 2019-03-23 21:20:50 Provider, [facility] POCT-GLUCOSE METER 2019-03-23 11:39:00 Berlin Bojorquez [facility] POCT-GLUCOSE METER 2019-03-23 08:22:00 Berlin Bojorquez [facility] COMPREHENSIVE METABOLIC 2019-03-23 05:27:00 Abel Wilburn [facility] CBC W/PLT COUNT & AUTO 2019-03-23 03:36:00 Cosmo [facility] POCT-GLUCOSE METER 2019-03-22 21:57:00 Berlin Bojorquez [facility] ECHOCARDIOGRAM REPORT - 2019-03-22 21:20:52 Provider, [facility] CAROTID DOPPLER BILATERAL 2019-03-22 19:42:00 Devaughn Herrera [facility] POCT-GLUCOSE METER 2019-03-22 17:18:00 Berlin Bojorquez [facility] BASIC METABOLIC PANEL (7) 2019-03-22 15:55:00 Jam[facility] CBC (HEMOGRAM ONLY) 2019-03-22 15:55:00 CecilioMelidap [facility] POCT-GLUCOSE METER 2019-03-22 15:00:00 Berlin Bojorquez [facility] 2D ECHO W/ DOPPLER 2019-03-22 14:04:35 Peyton [facility] (CW/PW/COLOR) [facility] POCT-ACT 2019-03-22 10:59:00 Berlin Bojorquez [facility] POCT-ACT 2019-03-22 10:32:00 Berlin Bojorquez [facility] L CATH & PCI 2019-03-22 10:18:00 Peyton [facility] POCT-GLUCOSE METER 2019-03-22 07:33:00 Berlin Bojorquez [facility] APTT 2019-03-22 02:06:00 Peyton [facility] BASIC METABOLIC PANEL (7) 2019-03-22 02:06:00 Berlin Bojorquez [facility] B-TYPE NATRIURETIC FACTOR 2019-03-22 02:06:00 Nas Minor [facility] (BNP) [facility] CALCIUM, IONIZED 2019-03-22 02:06:00 Nas Minor [facility] MAGNESIUM 2019-03-22 02:06:00 Nas Minor [facility] PHOSPHORUS 2019-03-22 02:06:00 Nas Minor [facility] LIPID PANEL 2019-03-22 02:06:00 Devaughn Herrera [facility] CBC W/PLT COUNT & AUTO 2019-03-22 02:06:00 Nas Minor [facility] US ABDOMEN COMPLETE 2019-03-22 00:10:00 Mary BethNely [facility] POCT-GLUCOSE METER 2019-03-21 21:24:00 [place] [facility] 2019-03-21 18:57:00 Berlin Bojorquez [facility] POCT-GLUCOSE METER 2019-03-21 17:26:00 Berlin Bojorquez [facility] ECG 12-LEAD 2019-03-21 17:24:35 Unknown, Hl7 Doctor [facility] CT BRAIN WITHOUT IV 2019-03-21 16:58:00 Berlin Bojorquez [facility] TROPONIN I 2019-03-21 15:07:00 Nas Minor [facility] XR SHOULDER LEFT COMPLETE 2019-03-21 14:25:00 Berlin Bojorquez [address] POCT-GLUCOSE METER 2019-03-21 12:58:00 Berlin Bojorquez [facility] REPORT OF PROCEDURE - 2019-03-21 12:27:13 [facility] UPPER ENDOSCOPY 2019-03-21 12:00:00 Mary BethNely [facility] APTT 2019-03-21 10:36:00 Berlin Bojorquez [facility] POCT-GLUCOSE METER 2019-03-21 07:39:00 Berlin Bojorquez [facility] APTT 2019-03-21 03:19:00 Spencer Cortes [facility] BASIC METABOLIC PANEL (7) 2019-03-21 02:23:00 Berlin Bojorquez [facility] CBC (HEMOGRAM ONLY) 2019-03-21 02:22:00 Berlin Bojorquez [facility] POCT-GLUCOSE METER 2019-03-20 21:46:00 Berlin Bojorquez Francisco [facility] APTT 2019-03-20 19:09:00 Berlin Bojorquez [facility] POCT-GLUCOSE METER 2019-03-20 18:20:00 Berlin Bojorquez [facility] PROTEIN, RANDOM URINE 2019-03-20 17:57:00 Iván Varghese [facility] CREATININE, RANDOM URINE 2019-03-20 17:57:00 Nas Minor [facility] URINALYSIS W/ MICROSCOPIC 2019-03-20 17:57:00 Nas Minor [facility] XR CHEST 1 VIEW 2019-03-20 15:12:00 Nas Minor [facility] PORTABLE/BEDSIDE [facility] APTT 2019-03-20 12:19:00 Fredrick Gamez [facility] TROPONIN I 2019-03-20 12:19:00 Felton Cardenas [facility] POCT-GLUCOSE METER 2019-03-20 11:45:00 Berlin Bojorquez [facility] POCT-GLUCOSE METER 2019-03-20 07:37:00 Berlin Bojorquez [facility] TROPONIN I 2019-03-20 05:54:00 [facility] BASIC METABOLIC PANEL (7) 2019-03-20 00:43:00 Felotn Cardenas [facility] MAGNESIUM 2019-03-20 00:43:00 Felton Cardenas makayla [facility] HEMOGLOBIN A1C 2019-03-20 00:43:00 Felton [facility] TROPONIN [facility] 2019-03-20 00:43:00 Felton Cardenas makayla [facility] APTT 2019-03-20 00:43:00 [facility] CBC W/PLT COUNT & AUTO 2019-03-20 00:43:00 Felton Cardenas [facility] ECG 12-LEAD 2019-03-20 00:29:38 Unknown, Hl7 Doctor [facility] RHYTHM STRIP - SCAN 2019-02-06 11:22:14 Provider, Default [facility] REPORT OF PROCEDURE - 2019-02-01 09:00:28 Provider, Default [facility] ENDOSCOPY SCAN [facility] RHYTHM STRIP - SCAN 2019-02-01 09:00:26 Provider, Default [facility] POCT-GLUCOSE METER 2019-01-30 09:05:00 Romain Mendez [facility] ECG 12-LEAD 2019-01-30 06:27:50 Josué Villagomez [facility] BASIC METABOLIC PANEL (7) 2019-01-30 05:56:00 Nas Minor [facility] B-TYPE NATRIURETIC FACTOR 2019-01-30 05:56:00 Nas Minor [facility] (BNP) [facility] CALCIUM, IONIZED 2019-01-30 05:56:00 Nas Minor [facility] MAGNESIUM 2019-01-30 05:56:00 Nas Minor [facility] PHOSPHORUS 2019-01-30 05:56:00 Nas Minor [facility] URIC ACID 2019-01-30 05:56:00 Nas Minor [facility] CBC W/PLT COUNT & AUTO 2019-01-30 05:56:00 Nas Minor [facility] POCT-GLUCOSE METER 2019-01-29 21:09:00 Romain Mendez [facility] POCT-GLUCOSE METER 2019-01-29 17:02:00 Romain Mendez [facility] SODIUM, RANDOM URINE 2019-01-29 14:24:00 Delbert Barron [facility] CREATININE, RANDOM URINE 2019-01-29 14:24:00 Delbert Barron [facility] URINALYSIS W/ MICROSCOPIC 2019-01-29 14:24:00 Delbert Barron [facility] PROTEIN, RANDOM URINE 2019-01-29 14:24:00 Nas Minor [facility] BASIC METABOLIC PANEL (7) 2019-01-29 13:24:00 Nas Minor [facility] MAGNESIUM 2019-01-29 13:24:00 Nas Minor [facility] PHOSPHORUS 2019-01-29 13:24:00 Nas Minor [facility] XR CHEST 1 VIEW 2019-01-29 13:14:00 Nas Minor [facility] PORTABLE/BEDSIDE Medical [place] POCT-GLUCOSE METER 2019-01-29 11:38:00 Nealice [facility] POCT-GLUCOSE METER 2019-01-29 07:45:00 Nealice [facility] ECG 12-LEAD 2019-01-29 06:42:02 Unknown, Hl7 Doctor [facility] CBC (HEMOGRAM ONLY) 2019-01-29 05:04:00 Dahlia [facility] POCT-GLUCOSE METER 2019-01-28 21:56:00 Andrea [facility] ECHOCARDIOGRAM REPORT - 2019-01-28 21:21:26 Provider, Default [facility]. DIFFICILE GDH TOXIN 2019-01-28 18:41:00 [facility] STOOL 2019-01-28 18:40:00 [facility] POCT-GLUCOSE METER 2019-01-28 11:46:00 [facility] 2D ECHO W/ DOPPLER 2019-01-28 11:25:[address] [facility] (CW/PW/COLOR) [facility] APTT 2019-01-28 08:48:00 [facility] POCT-GLUCOSE METER 2019-01-28 08:28:00 [facility] CBC (HEMOGRAM ONLY) 2019-01-28 04:28:00 [facility] BASIC METABOLIC PANEL (7) 2019-01-28 04:28:00 Christian Ríos [facility] APTT 2019-01-28 04:28:00 Dahlia, [facility] POCT-GLUCOSE METER 2019-01-27 22:00:00 Bandeli [facility] APTT 2019-01-27 21:12:00 [facility] POCT-GLUCOSE METER 2019-01-27 17:39:00 Bandeli [facility] PT/APTT 2019-01-27 16:27:00 Bandealheidi [facility] PT/APTT 2019-01-27 12:58:00 [facility] POCT-GLUCOSE METER 2019-01-27 12:35:00 Bandla [facility] POCT-GLUCOSE METER 2019-01-27 09:31:00 [facility] 12-LEAD 2019-01-27 07:06:37 Dahlia [facility] APTT 2019-01-27 05:55:00 Dahlia [facility] POCT-GLUCOSE METER 2019-01-27 03:52:00 [facility] CBC (HEMOGRAM ONLY) 2019-01-27 03:47:00 [facility] 2019-01-27 03:47:00 [facility] BASIC METABOLIC PANEL (7) 2019-01-27 03:47:00 Saadia Anders [place] POCT-GLUCOSE METER 2019-01-26 21:23:00 [facility] PLATELET COUNT 2019-01-26 18:42:00 Saadia Anders [facility] APTT 2019-01-26 18:42:00 Saadia Anders [facility] POCT-GLUCOSE METER 2019-01-26 13:34:00 Ye [facility] POCT-GLUCOSE METER 2019-01-26 08:21:00 Michell [facility] ECG 12-LEAD 2019-01-26 08:12:06 Dahlia [facility] POCT-GLUCOSE METER 2019-01-26 05:42:00 [facility] 2019-01-26 05:34:00 Dahlia [facility] TROPONIN I 2019-01-26 05:34:00 [facility] CBC (HEMOGRAM ONLY) 2019-01-26 05:34:00 Dahlia [facility] XR CHEST 1 VIEW 2019-01-25 23:56:00 [facility]ia [facility] MAGNESIUM 2019-01-25 23:19:00 Dahlia [facility] COMPREHENSIVE METABOLIC 2019-01-25 23:19:[address] [facility] TROPONIN I 2019-01-25 23:19:00 [facility] B-TYPE NATRIURETIC FACTOR 2019-01-25 23:19:00 Dahlia [facility] (BNP) [facility] PROTHROMBIN TIME/INR 2019-01-25 23:19:00 [facility] APTT 2019-01-25 23:19:00 Dahlia [facility] CBC W/PLT COUNT & AUTO 2019-01-25 23:19:[address] [facility] ECG 12-LEAD 2019-01-25 22:51:27 Dahlia [facility] POCT-GLUCOSE METER 2019-01-25 22:10:00 [facility] - SCAN 2019-01-01 11:34:32 Provider, Default [facility] REPORT OF PROCEDURE - 2018-12-27 07:06:43 Provider, Default [facility] ENDOSCOPY SCAN Scanning [facility] CARDIAC CATH REPORT - SCAN 2018-12-27 07:06:36 Provider, Default [facility] RHYTHM STRIP - SCAN 2018-12-27 07:06:27 Provider, Default [facility] POCT-GLUCOSE METER 2018-12-25 11:53:00 Puneet Snider [facility] POCT-GLUCOSE METER 2018-12-25 06:53:00 Puneet Snider [facility] CALCIUM, IONIZED 2018-12-25 04:14:00 Nas Minor [facility] BASIC METABOLIC PANEL (7) 2018-12-25 04:13:00 Nas Minor [facility] B-TYPE NATRIURETIC FACTOR 2018-12-25 04:13:00 Nas Minor [facility] (BNP) [facility] MAGNESIUM 2018-12-25 04:13:00 Nas Minor [facility] PHOSPHORUS 2018-12-25 04:13:00 Nas Minor [facility] CBC W/PLT COUNT & AUTO 2018-12-25 04:13:00 Nas Minor [facility] POCT-GLUCOSE METER 2018-12-24 22:48:00 Paul Puneet [facility] POCT-ACT 2018-12-24 22:03:00 Paul Puneet [facility] POCT-GLUCOSE METER 2018-12-24 20:12:00 Puneet Snider [facility] POCT-ACT 2018-12-24 17:18:00 Paul Puneet [facility] POCT-ACT 2018-12-24 16:51:00 Paul Puneet [facility] L CATH & PCI 2018-12-24 14:49:00 Spencer Cortes [facility] POCT-GLUCOSE METER 2018-12-24 12:46:00 Paul Puneet [facility] POCT-GLUCOSE METER 2018-12-24 08:25:00 Paul Puneet [facility] APTT 2018-12-24 08:24:00 Paul [facility] COMPREHENSIVE METABOLIC 2018-12-24 01:13:00 Cosmo [facility] APTT 2018-12-24 01:13:00 Andrew [facility] ECG 12-LEAD 2018-12-23 22:36:24 Unknown, Hl7 [facility] POCT-GLUCOSE METER 2018-12-23 17:53:00 Paul [facility] APTT 2018-12-23 16:08:00 Andrew [facility] POCT-GLUCOSE METER 2018-12-23 12:58:00 Paul [facility] POCT-GLUCOSE METER 2018-12-23 08:40:00 Paul [facility] CALCIUM, IONIZED 2018-12-23 05:20:00 Cosmo [facility] COMPREHENSIVE METABOLIC 2018-12-23 05:20:00 Cosmo [facility] MAGNESIUM 2018-12-23 05:20:00 [facility] 2018-12-23 05:20:00 [facility] B-TYPE NATRIURETIC FACTOR 2018-12-23 05:20:00 [facility] (BNP) [facility] APTT 2018-12-23 05:20:00 Andrew [facility] TROPONIN I 2018-12-23 05:20:00 Andrew [facility] CBC W/PLT COUNT & AUTO 2018-12-23 05:20:00 [facility] 12-LEAD 2018-12-23 04:44:34 Unknown, Hl7 [facility] POCT-GLUCOSE METER 2018-12-22 21:03:00 Paul [facility] APTT 2018-12-22 19:53:00 Andrew [facility] POCT-GLUCOSE METER 2018-12-22 17:20:00 Puneet Snider [facility] APTT 2018-12-22 12:55:00 Delbert Morales [facility] POCT-GLUCOSE METER 2018-12-22 12:53:00 Puneet Snider [facility] POCT-GLUCOSE METER 2018-12-22 08:25:00 Puneet Snider [facility] B-TYPE NATRIURETIC FACTOR 2018-12-22 04:53:00 Iv[facility] (BNP) [facility] CALCIUM, IONIZED 2018-12-22 04:53:00 [facility] IRON, TIBC, % SAT. 2018-12-22 04:53:00 [facility] 2018-12-22 04:53:00 [facility] MAGNESIUM 2018-12-22 04:52:00 [facility]OS[facility]US 2018-12-22 04:52:00 Iv[facility] COMPREHENSIVE METABOLIC 2018-12-22 04:52:00 [facility] RETICULOCYTE COUNT 2018-12-22 04:52:00 [facility] HEMOGLOBIN A1C 2018-12-22 04:52:00 Spencer Cortes [facility] TROPONIN I 2018-12-22 04:52:00 Saadia Anders [facility] APTT 2018-12-22 04:52:00 Delbert Morales [facility] CBC W/PLT COUNT & AUTO 2018-12-22 04:52:00 Abel [facility] POCT-GLUCOSE METER 2018-12-21 21:54:00 Puneet Snider [facility] ECHOCARDIOGRAM REPORT - 2018-12-21 21:21:27 Provider, Default [facility] APTT 2018-12-21 20:04:00 Delbert Morales [facility] US RENAL COMPLETE 2018-12-21 19:58:00 Nas Minor [facility] POCT-GLUCOSE METER 2018-12-21 17:28:00 Puneet Snider [facility] APTT 2018-12-21 13:55:00 Delbert Morales [facility] CREATININE, RANDOM URINE 2018-12-21 13:08:00 [facility] PROTEIN, RANDOM URINE 2018-12-21 13:08:00 Iván [facility] SODIUM, RANDOM URINE 2018-12-21 13:08:00 [facility]INAL[facility] W/ MICROSCOPIC 2018-12-21 13:08:00 Nas [facility] TROPONIN I 2018-12-21 11:48:00 Delbert Morales [facility] 2D ECHO W/ DOPPLER 2018-12-21 10:22:55 Spencer Cortes [facility] (CW/PW/COLOR) [facility] POCT-GLUCOSE METER 2018-12-21 09:59:00 [facility] PT/APTT 2018-12-21 07:39:00 Papito Augustine [facility] APTT 2018-12-21 04:00:00 Delbert Morales [facility] CBC (HEMOGRAM ONLY) 2018-12-21 04:00:00 Delbert Morales [facility] BASIC METABOLIC PANEL (7) 2018-12-21 04:00:00 Delbert Morales [facility] TROPONIN I 2018-12-21 04:00:00 Delbert Morales [facility] TROPONIN I 2018-12-21 00:32:00 Delbert Morales [facility] POCT-GLUCOSE METER 2018-12-21 00:29:00 Lorraine Papito [facility] XR CHEST 1 VIEW 2018-12-20 20:38:00 Papito Augustine [facility]/BEDSIDE [facility] COMPREHENSIVE METABOLIC 2018-12-20 20:33:00 Papito Augustine [facility] TROPONIN I 2018-12-20 20:33:00 Papito Augustine [facility] B-TYPE NATRIURETIC FACTOR 2018-12-20 20:33:00 [place] foley [facility] (BNP) [facility] PT/APTT 2018-12-20 20:33:00 Papito Augustine [facility] MAGNESIUM 2018-12-20 20:33:00 LorrainePapito foley [facility] CBC W/PLT COUNT & AUTO 2018-12-20 20:33:00 LorrainePapito [facility] CRITICAL CARE 2018-12-20 20:19:22 Lorraine [facility] ECG 12-LEAD 2018-12-20 20:04:52 Lorraine [facility] VASCULAR DIAGRAM -SCAN 2018-11-22 12:20:29 Provider, Default [facility] PERMANENT LAB REPORT - 2018-11-14 12:32:13 Provider, [facility] RHYTHM STRIP - SCAN 2018-11-14 12:32:10 Provider, [facility] REPORT OF PROCEDURE - 2018-11-14 12:32:08 Provider, Default [facility] ENDOSCOPY [facility] CARDIAC CATH REPORT - SCAN 2018-11-14 12:32:03 Provider, Default [facility] POCT-GLUCOSE METER 2018-11-13 11:50:00 [facility] POCT-GLUCOSE METER 2018-11-13 09:10:00 Peyton [facility] POCT-GLUCOSE METER 2018-11-13 06:48:00 Peyton [facility] URINALYSIS W/ MICROSCOPIC 2018-11-13 01:25:00 Nas Minor [facility] MAGNESIUM 2018-11-13 01:01:00 Daya Fair [facility] B-TYPE NATRIURETIC FACTOR 2018-11-13 01:01:[address] [facility] (BNP) [facility] PHOSPHORUS 2018-11-13 01:01:00 Nas Minor [facility] CALCIUM, IONIZED 2018-11-13 01:01:00 Cosmo [facility] COMPREHENSIVE METABOLIC 2018-11-13 01:01:00 [facility] CBC W/PLT COUNT & AUTO 2018-11-13 01:01:00 Cosmo [facility] POCT-ACT 2018-11-13 00:40:00 Peyton, [facility] POCT-ACT 2018-11-12 23:27:00 Peyton [facility] POCT-GLUCOSE METER 2018-11-12 21:31:00 [facility] POCT-ACT 2018-11-12 21:29:00 [facility] POCT-ACT 2018-11-12 17:50:00 [facility] POCT-ACT 2018-11-12 16:49:00 [facility] POCT-ACT 2018-11-12 16:11:00 [facility] L CATH & PCI 2018-11-12 15:58:00 [facility] C. DIFFICILE GDH TOXIN 2018-11-12 14:14:00 Saadia Anders [facility] CARDIAC PET PERFUSION 2018-11-12 12:09:00 Peyton [facility] - REST AND/OR STRESS Medical Cente r TREADMILL 2018-11-12 12:06:27 Unknown, Hl7 Doctor YOLY Alejandro [facility](NON-NUCLEAR Medical Ce nter TREADMILL) ECG 12-LEAD 2018-11-12 10:01:02 Unknown, Hl7 Doctor YOLY Alejandro [facility] APTT 2018-11-12 10:01:00 Peyton [facility] POCT-GLUCOSE METER 2018-11-12 08:34:00 Peyton [facility] LIPID PANEL 2018-11-12 04:18:00 Manjula [facility] HEMOGLOBIN A1C 2018-11-12 04:18:00 Manjula [facility] MAGNESIUM 2018-11-12 04:18:00 Manjula [facility] CALCIUM, IONIZED 2018-11-12 04:18:00 Cosmo [facility] COMPREHENSIVE METABOLIC 2018-11-12 04:18:00 [facility] PHOSPHORUS 2018-11-12 04:18:00 Wilburn [facility] APTT 2018-11-12 04:18:00 Peyton [facility] CBC W/PLT COUNT & AUTO 2018-11-12 04:18:00 [facility] 2018-11-11 22:02:00 [facility] ECHOCARDIOGRAM REPORT - 2018-11-11 21:20:37 Provider, Default [facility] POCT-GLUCOSE METER 2018-11-11 17:08:00 Peyton [facility] APTT 2018-11-11 15:24:00 [facility] 2D ECHO W/ DOPPLER 2018-11-11 13:14:57 Delbert Bentley [facility] (CW/PW/COLOR) [facility] POCT-GLUCOSE METER 2018-11-11 12:39:00 Peyton [facility] POCT-GLUCOSE METER 2018-11-11 08:53:[address] [facility] TROPONIN I 2018-11-11 08:24:00 Dariana Beverly [facility] XR CHEST 1 VIEW 2018-11-11 08:05:00 Delbert Bentley [facility] es - PORTABLE/BEDSIDE [facility] BASIC METABOLIC PANEL (7) 2018-11-11 00:39[facility]00 [facility] 2018-11-11 00:39:00 [facility] MAGNESIUM 2018-11-11 00:39:00 [facility] TSH/FREE T4 IF INDICATED 2018-11-11 00:39:00 Delbert Bentley [facility] TROPONIN I 2018-11-11 00:39:00 [facility] B-TYPE NATRIURETIC FACTOR 2018-11-11 00:39:00 [facility] (BNP) [facility] PT/APTT 2018-11-11 00:39:00 Spencer Cortes [facility] CBC W/PLT COUNT & AUTO 2018-11-11 00:39:00 [facility] ECG 12-LEAD 2018-11-11 00:12:37 Unknown, Hl7 Doctor [facility] Encounters Start End Encounter Admission Attending Care Care Encounter Source Date/Time Date/Time Type Type Clinicians Facility Department ID 2019-09-12 2019-09-12 Telephone RICCI Moody [id number] 00:00:00 00:00:00 Clarisse ESTRELLAY [id number] [place] [id number] 2019-09-12 2019-09-12 Letter RICCI Moody [id number] 00:00:00 00:00:00 (Out) Clarisse ESTRELLAY [id number] [place] [id number] 2019-09-09 2019-09-09 [employer] Jovanni Lerner [facility] [id number] 12:37:08 12:52:08 Visit Lab Main Swathi [id number] [place] [id number] Professio [id number] [address] 2019-09-09 2019-09-09 [facility] [id number] 09:07:00 09:07:00 t [facility] [employer] [facility] [employer] [facility] Medicine Outpati ent Clinics 2019-08-09 2019-08-09 [facility] [id number] 14:57:00 14:57:00 t [employer] [facility] Medicine l Medicine Outpati ent Clinics 2019-07-31 2019-07-31 [facility] [id number] 10:40:00 10:40:00 t [employer] [facility] Medicine l Medicine Outpati ent Clinics 2019-07-10 2019-07-10 [facility] [id number] 14:25:00 14:25:00 [facility] [employer] [facility] l Medicine Outpati ent Clinics 2019-06-28 2019-06-28 [facility] [id number] 10:34:00 10:34:00 t [employer] [facility] Medicine Outpati ent Clinics 2019-06-17 2019-06-17 [facility] [id number] 15:21:00 15:21:00 t [employer] [facility] l Medicine Outpati ent Clinics 2019 2019 [facility] [id number] 13:30:00 13:30:00 t [employer] [facility] l Medicine Outpati ent Clinics 2019-05-31 2019-05-31 [facility] [id number] 16:05:00 16:05:00 t [employer] [facility] Medicine l Medicine Outpati ent Clinics 2019-05-30 2019-05-30 [facility] [id number] 11:58:00 11:58:00 t [employer] [facility] l Medicine Outpati ent Clinics 2019-05-17 2019-05-17 [facility] [id number] 14:51:00 14:51:00 t [employer] [facility] Medicine l Medicine Outpati ent Clinics 2019-04-18 2019-04-18 [facility] [id number] 08:45:00 08:45:00 [place] [employer] [facility] Medicine l Medicine Outpati ent Clinics 2019-04-11 2019-04-11 [facility] [id number] 08:26:00 08:26:00 [place] [employer] - [facility] Medicine l Medicine Outpati ent Clinics 2019-03-26 2019-03-26 [facility] [id number] 10:15:00 10:15:00 t [place] [employer] [employer] [facility] Medicine l Medicine Outpati ent Clinics 2019-03-21 2019-03-21 [facility] [id number] 09:50:00 09:50:00 [place] [employer] [facility] l Medicine Outpati ent Clinics 2019-03-18 2019-03-18 [facility] [id number] 13:29:00 13:29:00 t [place] [employer] [facility] l Medicine Outpati ent Clinics 2019-02-11 2019-02-11 [facility] [id number] 13:30:00 13:30:00 t [place] [employer] [facility] Medicine l Medicine Outpati ent Clinics 2019-01-23 2019-01-23 [facility] [id number] 10:15:00 10:15:00 t [place] [employer] [facility] Medicine l Medicine Outpati ent Clinics 2019-01-21 2019-01-21 [facility] [id number] 13:25:00 13:25:00 t [place] [employer] [employer] [facility] Medicine l Medicine Outpati ent Clinics 2018-12-24 2018-12-24 [facility] [id number] 14:34:00 14:34:00 t [place] [employer] s - Drive [facility] l Medicine Outpati ent Clinics 2018-12-21 2018-12-21 [facility] [id number] 14:44:00 14:44:00 [place] - [facility] Medicine l Medicine Outpati ent Clinics 2018-12-19 2018-12-19 [facility] [id number] 17:03:00 17:03:00 [place] [employer] Lu[employer] s - Drive [facility] Medicine Medicine Outpati ent Clinics 2018-12-03 2018-12-03 [facility] [id number] [facility] 14:00:00 14:00:00 [place] [employer] - [facility] l Medicine Outpati ent Clinics 2018-11-26 2018-11-26 [facility] [id number] 13:30:00 13:30:00 t [place] [employer] - [facility] l Medicine Outpati ent Clinics 2018-10-16 2018-10-16 [facility] [id number] 11:15:00 11:15:00 t Specialty/U Amalia kes - Specialty rology Memori a /Urology Clinic l Clinic Outpati ent Clinics 2018-10-08 2018-10-08 [facility] [id number] 15:33:00 15:33:00 t [place] [employer] - Drive [facility] Medicine Outpati ent Clinics 2018-10-08 2018-10-08 [facility] [id number] 14:00:00 14:00:00 t [place] [employer] s - Drive [facility] Medicine Outpati ent Clinics 2018-10-08 2018-10-08 [facility] [id number] 14:00:00 14:00:00 t Specialty/U Amalia kes - Specialty rology Memori a /Urology Clinic l Clinic Outpati ent Clinics 2018-09-17 2018-09-17 [facility] [id number] 10:32:00 10:32:00 t [place] [employer] s - Drive [facility] l Medicine Outpati ent Clinics 2018-09-06 2018-09-06 [facility] [id number] 13:30:00 13:30:00 t [place] [employer] s - Drive [facility] Medicine Outpati ent Clinics 2018-09-04 2018-09-04 [facility] [id number] 14:45:00 14:45:00 t [place] [employer] s - Drive [facility] Medicine Medicine Outpati ent Clinics 2018-08-07 2018-08-07 [facility] [id number] 08:25:00 08:25:00 t [place] [employer] s - Drive [facility] Medicine Outpati ent Clinics 2018-06-26 2018-06-26 [facility] [id number] [facility] 10:41:00 10:41:00 t [place] [employer] s - Drive [facility] Medicine Outpati ent Clinics 2018-06-12 2018-06-12 [facility] [id number] 10:30:00 10:30:00 t [place] [employer] s - Drive [facility] Medicine Outpati ent Clinics 2018 2018 [facility] [id number] 11:54:00 11:54:00 t [place] [employer] s - Drive [facility] Medicine Outpati ent Clinics 2018-03-14 2018-03-14 [facility] [id number] 15:00:00 15:00:00 t [place] [employer] [facility] Medicine Outpati ent Clinics 2018-02-21 2018-02-21 [facility] [id number] 13:15:00 13:15:00 t Specialty/U Amalia kes - Specialty rology Memori a /Urology Clinic l Clinic Outpati ent Clinics 2018-02-21 2018-02-21 [facility] [id number] 09:57:00 09:57:00 t [place] [employer] s - Drive [facility] Medicine Medicine Outpati ent Clinics 2018-02-21 2018-02-21 [facility] [id number] 09:30:00 09:30:00 t Specialty/U Amalia kes - Specialty rology Memori a /Urology Clinic l Clinic Outpati ent Clinics 2018-02-21 2018-02-21 [facility] [id number] 08:32:00 08:32:00 t [place] [employer] s - Drive [facility] Medicine Outpati ent Clinics 2017-12-06 2017-12-06 [facility] [id number] 14:30:00 14:30:00 t [facility] ent Clinics 2017-11-29 2017-11-29 [facility] [id number] 09:30:00 09:30:00 t [facility] ent Clinics 2017-11-01 2017-11-01 [facility] [id number] 15:00:00 15:00:00 t [facility] ent Clinics 2017-11-01 2017-11-01 [facility] [id number] 14:19:00 14:19:00 t [place] [employer] Luke s - Drive [facility] 2017-11-01 2017-11-01 Outpatient zzzAmy zzzKamala [id number] [facility] 14:02:00 14:02:00 Alex Johnson [facility] 2017-09-06 2017-09-06 [facility] [id number] 10:30:00 10:30:[address] Luke [address] - Drive [facility] 2017-07-12 2017-07-12 [facility] [id number] 11:48:00 11:48:[address] Luke s - Drive [facility] Medicine Outpati ent Clinics 2017-07-03 2017-07-03 [facility] [id number] 10:15:00 10:15:[address] Luke s - Drive [facility] 2017-06-08 2017-06-08 [facility] [id number] 12:16:00 12:16:[address] Luke s - Drive [facility] Outpati ent Clinics 2017-05-16 2017-05-16 [facility] [id number] 11:00:00 11:00:00 t Specialty/U Amalia kes - Specialty rology [facility] a /Urology Clinic l Clinic Outpati ent Clinics 2017-05-08 2017-05-08 Outpatient Nathan Evanst [id number] [facility] 10:45:00 10:45:00 t [employer] Luke s - Drive [facility] Results Test Description Test Time Test Comments Results Result Comments Source Platelet Aggregation: Drug Effect 2019-05-29 16:27:00 Test Item Value Reference Range Interpretation Comme nts Arachadonic Acid (test code = 13 % 63-89 L 5993-1) Interpretation (test [place] = [place] [address]-0) arachidonic acid suggests aspirin-like effect.Decreased aggregation with ADP which indicates platelet dysfunction that may be due to medication effect, uremia, or other platelet function disorders. Clinical correlation is required. Pathologist: (test code = 2621) Talia Villarreal MD (electronic signature) Platelets (test code = 2656) 184 150- 450 K/CU MM ADP (test code = 31643-4) 11 % 62-100 L Platelet Rich Plasma (test code = 243 200- 300 k/cu mm 2134) KAREN (test code = KAREN) Platelet function studies by aggregation methodology on samples with platelet count <75,000/CU MM are unreliable; platelet function assessment should not be based on a single test.Jewellery Designer ID - [id number] Lab Interpretation (test code = Abnormal 86431-6) [facility] Diego[facility]ATELET AGGREGATION: DRUG [id number] 16:27:00 Test Item Value Reference Range Interpretation Comments ARACHADONIC ACID 13 % 63-89 L RESULT(BEAKER) (test code = 2138) PLATELET AGG DRUG Decreased response to INTERPRETATION (BEAKER) arachidonic acid (test code = 2408) suggests aspirin-like effect. PLATELET AGG DRUG Decreased aggregation INTERPRETATION (BEAKER) with ADP which (test code = 770102) indicates platelet dysfunction that may be due to medication effect, uremia, or other platelet function disorders. Clinical correlation is required. [id number] Talia Villarreal, (BEAKER) (test code = (electronic 2621) signature) PLATELET COUNT AGG 184 K/CU MM 150-450 (BEAKER) (test code = 2656) PLATELET RICH 243 k/cu mm 200-300 PLASMA(CRISTY) (test code = 2134) Platelet function studies by aggregation methodology on samples with platelet count <75,000/CU MMare unreliable; platelet function assessment should not be based on a single test.Jewellery Designer ID - [id number]-Glucose xsbvr1847-03-45 13:37:00 Test Item Value Reference Range Interpretation Comments POC-Glucose Meter (test 298 mg/dL 70-110 H : No tified RN/MD: code = 1538) TESTED AT [facility] [address] [facility], [address]: Jewellery Designer/Techni rebeca ID = [id number] for LIZ WATSON Lab Interpretation (test Abnormal code = 43911-9) [facility] DiegoPOIA-GLUCOSE [id number] 13:37:00 Test Item Value Reference Range Interpretation Comments POC-GLUCOSE METER 298 mg/dL 70-110 H : Notified RN/: (CRISTY) (test code = TESTED AT [facility] 6720 1538) [facility], [address]: Jewellery Designer/Techni rebeca ID = [id number] for LIZ PRIEST Venous doppler legs [id number] 08:20:35Ejection FractionSLEH ECHO HEARTLAB MKCKESSON CPACSRight Impression1. [...] Study 05/28/2019 DARCIOBDEO Age 78 Visit Number [id number] Gender Female Accession Number [id number] Date of 1940 Referring Peyton Choe Room Number 6218 Physician Communications Tower Climber Sly Shelby [facility] Interpreting Brandi Camara Physician [...] cm/s ; Diameters are measured in cmCH[facility] POCT-GLUCOSE [id number] 07:54:00 Test Item Value Reference Range Interpretation Comments POC-GLUCOSE METER 270 mg/dL 70-110 H : TESTED A T [facility] 6720 (BEAKER) (test code = [place], 1538) [address]: Jewellery Designer/Techni rebeca ID = [id number] for BE LL, BEAULA Calcium, [id number] 05:34:00 Test Item Value Reference Range Interpretation Comments Calcium, Ion (test code = 1993-) 1.16 mmol/L 1.12-1.27 pH, Blood (test code = 48968-5) 7.40 [facility] HospitalCALCIUM, [id number] 05:34:00 Test Item Value Reference Range Interpretation Comments CALCIUM IONIZED (BEAKER) (test 1.16 mmol/L 1.12-1.27 code = 698) PH, BLOOD (BEAKER) (test code = 7.40 1810) Basic metabolic [id number] 05:20:00 Test Item Value Reference Range Interpretation [...] Calcium (test code = 9.1 mg/dL 8.4-10.2 54557-8) EGFR (test code = 13 mL/min/1.73 [place] [address]-0) NOT ACCURATE CREATININE CLEARANCE IN PREDICTING GLOMERULAR FILTRATION RATE . ESTIMATED GFR I S NOT APPLICABLE FOR DIALYSIS PATIENTS. KAREN (test code = KAREN) Jewellery Designer ID - MELI M Lab Interpretation Abnormal (test code = 93033-5) [facility] DiegoCreatine Kinase (CK)2019-05-29 05:20:00 Test Item Value Reference Range Interpretation Comments Total CK (test code = 94 U/L 29-200 2157-6) KAREN (test code = KAREN) Jewellery Designer ID - MELI M Lab Interpretation (test Normal code = 43507-2) [facility] DiegoMagnesium2020-04-08 05:20:00 Test Item Value Reference Range Interpretation Comments Magnesium (test code = 2.1 mg/dL 1.6-2.6 12412-5) KAREN (test code = KAREN) Jewellery Designer ID - [facility] Lab Interpretation (test Normal code = 29029-3) [facility] DiegoB-type Natriuretic Factor (BNP)2019-05-29 05:20:00 Test Item Value Reference Range Interpretation Comments BNP (test code = 66663-7) 1228 pg/mL 0-100 H KAREN (test code = KAREN) Jewellery Designer ID - MELI Lab Interpretation (test Abnormal code = 75399-0) [facility] DiegoPhosphorus2020-04-08 05:20:00 Test Item Value Reference Range Interpretation Comments Phosphorus (test code = 3.7 mg/dL 2.3-4.7 2777-1) KAREN (test code = KAREN) Jewellery Designer ID - MELI Lab Interpretation (test Normal code = 91793-0) [facility] DiegoUric [id number] 05:20:00 Test Item Value Reference Range Interpretation Comments Uric Acid (test code = 9.0 mg/dL 2.6-7.2 H 3084-1) KAREN (test code = KAREN) Jewellery Designer ID - MELI Lab Interpretation (test Abnormal code = 02829-7) [facility] DiegoURIC [id number] 05:20:00 Test Item Value Reference Range Interpretation Comments URIC ACID (BEAKER) (test code = 9.0 mg/dL 2.6-7.2 H 773) Jewellery Designer ID - MELI [id number] 05:20:00 Test Item Value Reference Range Interpretation Comments MAGNESIUM (BEAKER) (test code = 2.1 mg/dL 1.6-2.6 627) Jewellery Designer ID - MELI [id number] 05:20:00 Test Item Value Reference Range Interpretation Comments PHOSPHORUS (BEAKER) (test code = 3.7 mg/dL 2.3-4.7 604) Jewellery Designer ID - MELI MCREATINE KINASE (CK)2019-05-29 05:20:00 Test Item Value Reference Range Interpretation Comments CREATINE KINASE TOTAL (BEAKER) (test 94 U/L 29-200 code = 380) Jewellery Designer ID - MELI MB-TYPE NATRIURETIC FACTOR (BNP)2019-05-29 05:20:00 Test Item Value Reference Range Interpretation Comments B-TYPE NATRIURETIC PEPTIDE 1228 pg/mL 0-100 H (BEAKER) (test code = 700) Jewellery Designer ID - MELI MBASIC METABOLIC [id number] 05:20:00 Test Item Value Reference Range Interpretation [...] S NOT APPLICABLE FOR DIALYSIS PATIEN 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 ID - MELI MCBC (hemogram only)2019-05-29 04:59:00 [...] 450 K/CU MM MPV (test code = 12845-1) 9.9 fL 9.4-12.3 nRBC (test code = 413) 0 0- 0 /100 WBC Lab Interpretation (test code = Abnormal 10873-3) [facility] with platelet count + automated [id number] 04:59:00 Test Item Value Reference Range Interpretation [...] 450 K/CU MM MPV (test code = 21450-7) 9.9 fL 9.4-12.3 nRBC (test code = [...] 2801) Lab Interpretation (test code = Abnormal 21907-1) [facility] W/PLT COUNT & AUTO [id number] 04:59:00 Test Item Value Reference Range Interpretation [...] (BEAKER) (test code = 413) U/S, RENAL, [id number] 03:58:00Reason for exam:->AKIShould this be performed at [...] [place] Verified Date/Time: 05/29/2019 03:58:20 US renal eidlsjuh1506-65-61 03:58:00Interface, External Ris In - 05/29/2019 4:00 [...] size. Signed: Ochoa FryeportVerified Date/Time: 05/29/2019 03:58:20 [facility] [id number] 21:44:00 Test Item Value Reference Range Interpretation Comments POC-GLUCOSE METER 230 mg/dL 70-110 H : TESTED A T [facility] 67 (BEAKER) (test code = [facility]) [address]: Jewellery Designer/Techni rebeca ID = [id number] for DARIAN SEWENEY POC ACTIVATED CLOTTING [id number] 20:46:00 Test Item Value Reference Range Interpretation Comments Activated Clotting Time 136 sec : 74 -137 seconds, (test code = 441) Baseline: TESTED AT [address], [address]: Jewellery Designer/Techni rebeca ID = [id number] for DARIAN SWEENEY [facility] HospitalPOCT-[id number] 20:46:00 Test Item Value Reference Range Interpretation Comments ACTIVATED CLOTTING TIME 136 sec : 74 -137 seconds, (BEAKER) (test code = Baseli ne: TESTED AT [facility]) [facility] [address] [facility], [address]: Jewellery Designer/Techni rebeca ID = [id number] for DARIAN SWEENEY Urinalysis w/Abnxpirvfjs5975-37-19 18:58:00 Test Item Value Reference Range Interpretation Comments Color, UA (test code = Light Yellow 5778-6) Clarity, UA (test code = Clear 5767-9) Specific [place], UA (test 1.012 1.001-1.035 code = 5811-5) pH, UA (test code = 6.0 5.0-8.0 5803-2) Protein, UA (test code = 20 mg/dL Negative A 40073-0) Glucose, UA (test code = 150 mg/dL Negative A 365) Ketones, UA (test code = Negative Negative 2514-8) Bilirubin, UA (test code = Negative Negative 05097-6) Blood, UA (test code = Trace Negative A 09509-1) Nitrite, UA (test code = Negative Negative 5802-4) Leukocytes, UA (test code Negative Negative = 5799-2) Urobilinogen, UA (test 0.2 mg/dL 0.2-1 code = 35131-5) RBC, UA (test code = 1 /HPF 75492-3) WBC, UA (test code = <1 /HPF 5821-4) Bacteria, UA (test code = Many 25078-3) Specimen Source (test code = 2795) KAREN (test code = KAREN) Jewellery Designer ID - [auto]Jewellery Designer ID - ny Lab Interpretation (test Abnormal code = 88419-8) [facility] DiegoURINALYSIS W/ [id number] 18:58:00 Test Item Value Reference Range Interpretation [...] Many 517) SOURCE(BEAKER) (test code = 2795) Jewellery Designer ID - [auto]Jewellery Designer ID - rryeAOKI-NMC9781-36-07 18:35:00 Test Item Value Reference Range Interpretation Comments ACTIVATED CLOTTING TIME 164 sec : 74 -137 seconds, (BEAKER) (test code = Baseli ne: TESTED AT 441) [facility] [address] [place], [address]: Jewellery Designer/Techni rebeca ID = [id number] for SHONDA HENDRICKS BASIC METABOLIC [id number] 16:41:00 Test Item Value Reference Range Interpretation [...] S NOT APPLICABLE FOR DIALYSIS PATIEN 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 ID - FWTJHU-HLL8150-27-07 16:33:00 Test Item Value Reference Range Interpretation Comments ACTIVATED CLOTTING TIME 202 sec : 74 -137 seconds, (BEAKER) (test code = Baseli ne: TESTED AT 441) [facility] [address] [place], [address]: Jewellery Designer/Techni rebeca ID = [id number] for SHONDA HENDRICKS CBC (HEMOGRAM ONLY)2019-05-28 16:25:00 [...] WBC 0-0 (BEAKER) (test code = 413) [id number] 14:53:00 Test Item Value Reference Range Interpretation Comments ACTIVATED CLOTTING TIME 246 sec : 74 -137 seconds, (BEAKER) (test code = Baseli ne: TESTED AT 441) [address], [address]: Jewellery Designer/Techni rebeca ID = [id number] for Riley Cuevas [id number] 14:07:00 Test Item Value Reference Range Interpretation Comments ACTIVATED CLOTTING TIME 213 sec : 74 -137 seconds, (BEAKER) (test code = Baseli ne: TESTED AT 441) [address], [address]: Jewellery Designer/Techni rebeca ID = [id number] for Riley Cuevas [id number] 14:07:00 Test Item Value Reference Range Interpretation Comments ACTIVATED CLOTTING TIME 109 sec : 74 -137 seconds, (BEAKER) (test code = Baselheidi ne: TESTED AT 441) [address], [address]: Jewellery Designer/Techni rebeca ID = [id number] for Riley Cuevas Creatinine, random [id number] 13:05:00 Test Item Value Reference Range Interpretation Comments Creatinine, Ur 65.1 mg/dL (test code = 2161-8) KAREN (test code = Reference Range: No KAREN) NormalsOperator ID - BS [facility] DiegoProtein, random [id number] 13:05:00 Test Item Value Reference Range Interpretation Comments Protein, Urine (test code = 10 mg/dL 0-14 2888-6) KAREN (test code = KAREN) Jewellery Designer ID - BS Lab Interpretation (test Normal code = 62151-6) [facility] random [id number] 13:05:00 Test Item Value Reference Range Interpretation Comments Sodium Urine (test 35 meq/L code = 2955-3) KAREN (test code = Reference Range: No KAREN) NormalsOperator ID - BS [facility] HospitalCREATININE, RANDOM [id number] 13:05:00 Test Item Value Reference Range Interpretation Comments CREATININE URINE (BEAKER) (test 65.1 mg/dL code = 375) Reference Range: No NormalsOperator ID - BSPROTEIN, RANDOM [id number] 13:05:00 Test Item Value Reference Range Interpretation Comments PROTEIN, URINE (BEAKER) (test code = 10 mg/dL 0-14 1569) Jewellery Designer ID - BSSODIUM, RANDOM [id number] 13:05:00 Test Item Value Reference Range Interpretation Comments SODIUM URINE (BEAKER) (test code = 35 meq/L 243) Reference Range: No NormalsOperator ID - BSPOCT-GLUCOSE [id number] 12:14:00 Test Item Value Reference Range Interpretation Comments POC-GLUCOSE METER 313 mg/dL 70-110 H : TESTED A T [facility] 67 [facility] (test code = JODY [place] [facility], 1538) [address]: Jewellery Designer/Techni rebeca ID = [id number] for SHONDA MORA POCT-GLUCOSE [id number] 09:43:00 Test Item Value Reference Range Interpretation Comments POC-GLUCOSE METER 272 mg/dL 70-110 H : Notified RN/MD: (BEAKER) (test code = TESTED AT [facility] 6720 1538) [facility], [address]: Jewellery Designer/Techni rebeca ID = [id number] for LIZ PRIEST [id number] 09:00:00 Test Item Value Reference Range Interpretation Comments PTT (test code = 18235-8) 67.2 22.5- 36.0 seconds H Lab Interpretation (test code = Abnormal 05202-2) [facility] DiegoAPTT2020-04-07 09:00:00 Test Item Value Reference Range Interpretation Comments PARTIAL THROMBOPLASTIN TIME 67.2 seconds 22.5-36.0 H (BEAKER) (test code = 760) BASIC METABOLIC [id number] 07:07:00 Test Item Value Reference Range Interpretation [...] S NOT APPLICABLE FOR DIALYSIS 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 ID - [id number] 06:56:00 Test Item Value Reference Range Interpretation [...] = 413) CBC W/PLT COUNT & AUTO [id number] 06:51:00 Test Item Value Reference Range Interpretation [...] (BEAKER) (test code = 2801) ECG 12 [id number] 06:33:54Interface, External Ris In - 05/28/2019 6:33 AM CDTVentricular Rate 91 BPMAtrial Rate 91 BPMP-R Interval 184 msQRS Duration 112 msQ-T Interval 410 msQTC Calculation(Bazett) 504 msP [place] 80 degreesR [place] 53 degreesT [place] 215 degreesNormal sinus rhythmIncomplete left bundle branch blockST depression inferior and anterolateral leads + ST elevation in aVR consider ischemiaProlonged QTAbnormal ECGWhen compared with ECG of 22:06ST now depressed in Lateral leadsST now elevated in aVRConfirmed by MD JORGE, MATHEUS ([id number]) on 05/28/2019 6:33:47 [facility] I 2019-05-28 05:00:00 Test Item Value Reference Range Interpretation Comments Troponin I (test code = 1.06 ng/mL 0-0.03 11805-7) KAREN (test code = KAREN) Troponin I [...] BS Lab Interpretation (test Abnormal code = 96890-8) [facility] [id number] 05:00:00 Test Item Value Reference Range Interpretation [...] failure, acidosis, acute neurological disease, and persistent tachyarrhythmia.Jewellery Designer ID - BSTROPONIN [id number] 00:21:00 Test Item Value Reference Range Interpretation [...] failure, acidosis, acute neurological disease, and persistent tachyarrhythmia.Jewellery Designer ID - BSBASIC METABOLIC PANEL 2019-05-28 00:18:00 [...] S NOT APPLICABLE FOR DIALYSIS PATIEN 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 ID - BSB-TYPE NATRIURETIC FACTOR (BNP)2019-05-28 00:13:00 Test Item Value Reference Range Interpretation Comments B-TYPE NATRIURETIC PEPTIDE (BEAKER) 416 pg/mL 0-100 H (test code = 700) Jewellery Designer ID - BSPT/[id number] 23:58:00 Test Item Value Reference Range Interpretation Comments Protime (test code = 13.3 11.9- 14.2 5902-2) seconds INR (test code = 1.0 <=5.9 6301-6) PTT (test code = 25.2 22.5- 36.0 64540-0) seconds KAREN (test code = KAREN) Effective 07/18/2018: PT Reference Range ChangeNew: 11.9-14.2 Previous: 11.7-14.7 RECOMMENDED COUMADIN/WARFARIN INR THERAPY RANGESSTANDARD DOSE: 2.0-3.0 Includes: PROPHYLAXIS for venous thrombosis, systemic embolization; TREATMENT for venous thrombosis and/or pulmonary embolus.HIGH RISK: Target INR is 2.5-3.5 for patients wiht mechanical heart valves. Lab Interpretation Normal (test code = 93962-7) [facility] DiegoAPTT2020-04-06 23:58:00 Test Item Value Reference Range Interpretation Comments PARTIAL THROMBOPLASTIN TIME 24.1 seconds 22.5-36.0 (BEAKER) (test code = 760) 6 hours after starting heparin infusion and as indicated per sliding scale PT/[id number] 23:58:00 Test Item Value Reference Range Interpretation [...] is2.5-3.5 for patients wiht mechanical heart valves.Platelet [id number] 23:50:00 Test Item Value Reference Range Interpretation Comments Platelets (test code = 209 150- 450 K/CU MM 777-3) KAREN (test code = KAREN) Jewellery Designer ID - [id number] Lab Interpretation (test Normal code = 28795-8) [facility] W/PLT COUNT & AUTO [id number] 23:50:00 Test Item Value Reference Range Interpretation [...] PERCENT (BEAKER) (test code = 2801) PLATELET [id number] 23:50:00 Test Item Value Reference Range Interpretation Comments PLATELET COUNT (BEAKER) (test 209 K/CU MM 150-450 code = 756) Jewellery Designer ID - [id number], CHEST, 1 VIEW, NON [id number] 23:36:00Reason for exam:->CHEST PAIN, dyspneaShould this be [...] 23:36:18 XR chest 1 view portable / [id number] 23:36:00Interface, External Ris In - 05/27/2019 11:38 [...] Ochoa Fry [place] Verified Date/Time: 05/27/2019 23:36:18 [facility] 2019-03[facility]23 11:53:00 Test Item Value Reference Range Interpretation Comments POC-GLUCOSE METER 309 mg/dL 70-110 H : TESTED Carli T [facility] 6720 (CRISTY) (test code = [place], 1538) [address]: Jewellery Designer/Techni rebeca ID = [id number] for NOVA PERSAUD Carotid doppler [id number] 09:28:23Ejection FractionSLE ECHO HEARTLAB MKCKESSON CPACSRight Impression1. [...] Study 03/22/2019 DARCIOBDEShay Age 78 Visit Number [id number] Gender Female Accession Number [id number] Date of 1940 Referring [facility] Room Number C633 Physician SonographApolinar De T [...] + + - Additional Measurements:ICAPSV/CCAPSV 1.49.ICAEDV/CCAEDV 1.48.[facility] HospitalPOCT-GLUCOSE [id number] 08:34:00 Test Item Value Reference Range Interpretation Comments POC-GLUCOSE METER 209 mg/dL 70-110 H : TESTED A T [facility] 6720 (CRISTY) (test code = JODY [place] [facility], 1538) [address]: Jewellery Designer/Techni rebeca ID = [id number] for NOVA PERSAUD Comprehensive metabolic [id number] 07:27:00 Test Item Value Reference Range Interpretation Comments Protein, Total (test 6.3 6.0- 8.3 gm/dL Speci men slightly code = 2885-2) hemolyzed Albumin (test code = 3.4 g/dL 3.5-5 L Specime n slightly 00868-8) hemolyzed Alkaline Phosphatase 52 U/L 40-150 (test code = 6768-6) Total Bilirubin (test 0.4 mg/dL 0.2-1.2 Specim en slightly code = 1974-2) hemolyzed Sodium (test code = 140 meq/L 372-731 5118-2) Potassium (test code = 4.1 meq/L 3.5-5.1 [...] Calcium (test code = 9.0 mg/dL 8.4-10.2 18947-6) AST (test code = 27 U/L 5-34 Specimen sl ightly 1920-8) hemolyzed ALT (test code = 14 U/L 6-55 Specimen sl ightly 1742-6) hemolyzed EGFR (test code = 16 mL/min/1.[place] [address]-7) NOT ACCURATE CREATININE CLEARANCE IN PREDICTING GLOMERULAR FILTRATION RATE . ESTIMATED GFR I S NOT APPLICABLE FOR DIALYSIS PATIENTS. KAREN (test code = KAREN) Jewellery Designer ID - PIAYA L Lab Interpretation Abnormal (test code = 60077-1) [facility] DiegoCOMPREHENSIVE METABOLIC [id number] 07:27:00 Test Item Value Reference Range Interpretation [...] S NOT APPLICABLE FOR DIALYSIS PATIEN 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 ID - PIAYA LCBC W/PLT COUNT & AUTO [id number] 03:51:00 Test Item Value Reference Range Interpretation [...] PERCENT (BEAKER) (test code = 2801) POCT-GLUCOSE [id number] 22:09:00 Test Item Value Reference Range Interpretation Comments POC-GLUCOSE METER 172 mg/dL 70-110 H : TESTED A T [facility] 6720 (BEAKER) (test code = [facility], 1538) [address]: Jewellery Designer/Techni rebeca ID = [id number] for HAIR ASH POCT-GLUCOSE [id number] 17:30:00 Test Item Value Reference Range Interpretation Comments POC-GLUCOSE METER 284 mg/dL 70-110 H : TESTED A T [facility] 6720 (BEAKER) (test code = [facility], 1538) [address]: Jewellery Designer/Techni rebeca ID = [id number] for NOVA PERSAUD 2D Echo W/Doppler(CW/PW/Color)2019-03-22 17:25:25Ejection FractionSLEH ECHO HEARTLAB MKCKESSON CPACSInterface, External Ris In - 03/22/2019 5:25 PM C STTransthoracic Echocardiography Report (TTE) Demographics Patient Name HENRIQUE ARECHIGA Date of Study 03/22/2019 ESCOBDEO Gender Female Visit Number [id number] Race [id number] Room Number [id number] Number Date of 1940 Referring Physician Peyton Choe Age 78 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 Daniel Khan Interpreting Raul Acosta MD Physician [...] CO: 6.85 l/min LVOT CI: 4.1 l/min/m^2[facility] METABOLIC [id number] 16:26:00 Test Item Value Reference Range Interpretation [...] S NOT APPLICABLE FOR DIALYSIS PATIEN 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 ID - AAHAMIDPOCT-GLUCOSE [id number] 16:16:00 Test Item Value Reference Range Interpretation Comments POC-GLUCOSE METER 233 mg/dL 70-110 H : TESTED A T [facility] 6720 (BEAKER) (test code = [place], 1538) [address]: Jewellery Designer/Techni rebeca ID = [id number] for NOVA PERSAUD CBC (HEMOGRAM ONLY)2019-03-22 16:08:00 [...] WBC 0-0 (BEAKER) (test code = 413) [id number] 11:06:00 Test Item Value Reference Range Interpretation Comments ACTIVATED CLOTTING TIME 263 sec Refe rence Range: (BEAKER) (test code = 74-137 seconds, 441) Baseline/TESTED AT [address] [address] [id number] 10:50:00 Test Item Value Reference Range Interpretation Comments ACTIVATED CLOTTING TIME 263 sec Refe rence Range: (BEAKER) (test code = 74-137 seconds, 441) Baseline/TESTED AT [address] [address] POCT-GLUCOSE [id number] 07:45:00 Test Item Value Reference Range Interpretation Comments POC-GLUCOSE METER 188 mg/dL 70-110 H : TESTED A T [place] [address] (BEAKER) (test code = [facility], 1538) [address]: Jewellery Designer/Techni rebeca ID = [id number] for BRANDI KIMBLE BASIC METABOLIC [id number] 02:49:00 Test Item Value Reference Range Interpretation [...] S NOT APPLICABLE FOR DIALYSIS PATIEN 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 STEPHANE Devin MARILU LB-TYPE NATRIURETIC FACTOR (BNP)2019-03-22 02:44:00 Test Item Value Reference Range Interpretation Comments B-TYPE NATRIURETIC PEPTIDE (BEAKER) 815 pg/mL 0-100 H (test code = 700) Jewellery Designer STEPHANE MICHEL LLipid [id number] 02:42:00 Test Item Value Reference Range Interpretation Comments Triglycerides (test 102 mg/dL code = 2571-8) Cholesterol (test code 161 mg/dL = 2093-3) HDL (test code = 40 mg/dL 2085-9) LDL Calculated (test 101 mg/dL code = 97127-4) KAREN (test code = KAREN) Triglyceride Reference Range: Low Risk <150 Borderline 150-199 High Risk 200-499 Very High Risk >=500 Cholesterol Reference Range: Low Risk <200 Borderline 200-239 High Risk >240 HDL Cholesterol Reference Range: Low Risk >=60 High Risk <40 LDL Cholesterol Reference Range: Optimal <100 Near Optimal 100-129 Borderline 130-159 High 160-189 Very High >=190 Jewellery Designer STEPHANE MICHEL Francisco Javier [facility] DiegoPHOSPHORUS2020-01-31 02:42:00 Test Item Value Reference Range Interpretation Comments PHOSPHORUS (BEAKER) (test code = 4.4 mg/dL 2.3-4.7 604) Jewellery Designer STEPHANE MICHEL [id number] 02:42:00 Test Item Value Reference Range Interpretation Comments MAGNESIUM (BEAKER) (test code = 2.1 mg/dL 1.6-2.6 627) Jewellery Designer STEPHANE Devin MARILU LLIPID [id number] 02:42:00 Test Item Value Reference Range Interpretation [...] Borderline 130-159 High 160-189 Very High >=190 Jewellery Designer ID - [id number] 02:36:00 Test Item Value Reference Range Interpretation Comments PARTIAL THROMBOPLASTIN TIME 85.7 seconds 22.5-36.0 H (BEAKER) (test code = 760) CALCIUM, [id number] 02:33:00 Test Item Value Reference Range Interpretation Comments CALCIUM IONIZED (BEAKER) (test 1.10 mmol/L 1.12-1.27 L code = 698) PH, BLOOD (BEAKER) (test code = 7.40 1810) CBC W/PLT COUNT & AUTO [id number] 02:23:00 Test Item Value Reference Range Interpretation [...] (BEAKER) (test code = 2801) U/S, ABDOMINAL, [id number] 01:50:00Reason for exam:->abd painFINAL REPORT INDICATION: abd [...] MDReport Verified Date/Time: 03/22/2019 01:50:03 US abdomen [id number] 01:50:00Interface, External Ris In - 03/22/2019 1:53 [...] Signed: Socorro Méndez Verified Date/Time: 03/22/2019 01:50:03 [facility] [id number] 21:37:00 Test Item Value Reference Range Interpretation Comments POC-GLUCOSE METER 257 mg/dL 70-110 H : TESTED A T [facility] 6720 (BEAKER) (test code = [facility], 1538) [address]: Jewellery Designer/Techni rebeca ID = [id number] for RAMO BURLESON EMILIO [id number] 19:18:00 Test Item Value Reference Range Interpretation Comments PARTIAL THROMBOPLASTIN TIME 53.5 seconds 22.5-36.0 H (BEAKER) (test code = 760) POCT-GLUCOSE [id number] 17:38:00 Test Item Value Reference Range Interpretation Comments POC-GLUCOSE METER 246 mg/dL 70-110 H : TESTED A T [facility] 6720 (BEAKER) (test code = [facility], 1538) 46571: Jewellery Designer/Techni rebeca ID = [id number] for SHY MIRAMONTES CT, BRAIN, WITHOUT [id number] 17:36:00Reason for exam:->Left sided weakness, more so [...] Date/Time: 03/21/2019 17:36:00 CT brain without IV [id number] 17:36:00Interface, External Ris In - 03/21/2019 5:38 [...] Signed: Kavitha Box Verified Date/Time: 03/21/2019 17:36:00 [facility] 2019-03-21 15:50:00 Test Item Value Reference Range Interpretation Comments TROPONIN I (BEAKER) (test code = 0.57 ng/mL 0.00-0.03 [facility]) Troponin I (TnI) levels must be interpreted [...] failure, acidosis, acute neurological disease, and persistent tachyarrhythmia.Jewellery Designer ID - [id number], SHOULDER, COMPLETE (MIN 2 VIEWS), [id number] 14:38:00Reason for exam:->shoulder pain with ROMFINAL REPORT [...] MDReport Verified Date/Time: 03/21/2019 14:38:21 Reading Location: [facility] Radiology Reading Room XR shoulder complete 2 views min [id number] 14:38:00 Interface, External Ris In - 03/21/2019 [...] MDReport Verified Date/Time: 03/21/2019 14:38:21 Reading Location: [facility] Radiology [facility] [id number] 13:19:00 Test Item Value Reference Range Interpretation Comments POC-GLUCOSE METER 155 mg/dL 70-110 H : TESTED A T [facility] 6720 (BEAKER) (test code = [facility] G[facility], 1538) 934[address]: Jewellery Designer/Techni rebeca ID = [id number] for FARIBA CARRILLO [id number] 11:14:00 Test Item Value Reference Range Interpretation Comments PARTIAL THROMBOPLASTIN TIME 108.5 seconds 22.5-36.0 H (BEAKER) (test code = 760) POCT-GLUCOSE [id number] 07:51:00 Test Item Value Reference Range Interpretation Comments POC-GLUCOSE METER 198 mg/dL 70-110 H : TESTED A T [facility] 6720 (BEAKER) (test code = [facility] G[facility], 1538) 628[address]: Jewellery Designer/Techni rebeca ID = [id number] for SHY MIRAMONTES [id number] 03:52:00 Test Item Value Reference Range Interpretation Comments PARTIAL THROMBOPLASTIN 106.2 seconds 22.5-36.0 H B.no .161251 ok to TIME (BEAKER) (test released result. code = 760) BASIC METABOLIC [id number] 02:58:00 Test Item Value Reference Range Interpretation [...] S NOT APPLICABLE FOR DIALYSIS PATIEN 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 ID - MELI MCBC (HEMOGRAM ONLY)2019-03-21 02:32:00 [...] 0-0 (BEAKER) (test code = 413) POCT-GLUCOSE [id number] 21:58:00 Test Item Value Reference Range Interpretation Comments POC-GLUCOSE METER 281 mg/dL 70-110 H : TESTED A T [facility] 6720 (BEAKER) (test code [facility], = 1538) 929[address]: Jewellery Designer/Techni rebeca ID = [id number] for WINSOME CHRISTIANSON [id number] 19:51:00 Test Item Value Reference Range Interpretation Comments PARTIAL THROMBOPLASTIN TIME 88.1 seconds 22.5-36.0 H (BEAKER) (test code = 760) CREATININE, RANDOM [id number] 18:56:00 Test Item Value Reference Range Interpretation Comments CREATININE URINE (BEAKER) (test 56.6 mg/dL code = 375) Reference Range: No NormalsOperator ID - BSPROTEIN, RANDOM [id number] 18:56:00 Test Item Value Reference Range Interpretation Comments PROTEIN, URINE (BEAKER) (test code = 11 mg/dL 0-14 1569) Jewellery Designer ID - BSURINALYSIS W/ [id number] 18:48:00 Test Item Value Reference Range Interpretation [...] = 516) SOURCE(CRISTY) (test code = 2795) Jewellery Designer ID - [auto]Jewellery Designer ID - nyPOCT-GLUCOSE [id number] 18:32:00 Test Item Value Reference Range Interpretation Comments POC-GLUCOSE METER 190 mg/dL 70-110 H : TESTED A T [facility] 6720 (CRISTY) (test code = [place], 1538) [address]: Jewellery Designer/Techni rebeca ID = [id number] for SHY MIRAMONTES RAD, CHEST, 1 VIEW, NON [id number] 15:28:00Reason for exam:->Fluid statusShould this be performed [...] MDReport Verified Date/Time: 03/20/2019 15:28:46 Reading Location: [facility] Reading Room Electronically signed by: NOEMY STORM M.D. on03/20/2019 03:28 PMTROPONIN [id number] 13:36:00 Test Item Value Reference Range Interpretation Comments TROPONIN I (CRISTY) (test code = 0.78 ng/mL 0.00-0.03 [facility]) Troponin I (TnI) levels must be interpreted [...] failure, acidosis, acute neurological disease, and persistent tachyarrhythmia.Jewellery Designer ID - TRISTON [id number] 12:50:00 Test Item Value Reference Range Interpretation Comments PARTIAL THROMBOPLASTIN TIME 65.6 seconds 22.5-36.0 H (CRISTY) (test code = 760) POCT-GLUCOSE [id number] 11:57:00 Test Item Value Reference Range Interpretation Comments POC-GLUCOSE METER 154 mg/dL 70-110 H : TESTED A T [facility] 6720 (BEAKER) (test code = [facility], 1538) 64165: Jewellery Designer/Techni rebeca ID = [id number] for SHY MIRAMONTES Hemoglobin [id number] 09:21:00 Test Item Value Reference Range Interpretation Comments Hemoglobin A1C (test code = 4548-4) 8.5 % 4.3-6.1 H Lab Interpretation (test code = Abnormal 88564-8) [facility] Diego[facility] [id number] 09:21:00 Test Item Value Reference Range Interpretation Comments HEMOGLOBIN A1C (BEAKER) (test code = 8.5 % 4.3-6.1 H 368) POCT-GLUCOSE [id number] 07:53:00 Test Item Value Reference Range Interpretation Comments POC-GLUCOSE METER 99 mg/dL 70-110 : TESTED A T [facility] 6720 (BEAKER) (test code = [facility], 1538) 807[address]: Jewellery Designer/Techni rebeca ID = [id number] for KARLEY MANCUSO TROPONIN [id number] 06:40:00 Test Item Value Reference Range Interpretation [...] failure, acidosis, acute neurological disease, and persistent tachyarrhythmia.Jewellery Designer ID - KENNTROPONIN [id number] 01:53:00 Test Item Value Reference Range Interpretation [...] failure, acidosis, acute neurological disease, and persistent tachyarrhythmia.Jewellery Designer ID - MICASIC METABOLIC PANEL 2019-03-20 01:52:00 [...] S NOT APPLICABLE FOR DIALYSIS PATIEN 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 ID - [id number] 01:25:00 Test Item Value Reference Range Interpretation Comments MAGNESIUM (BEAKER) (test code = 2.2 mg/dL 1.6-2.6 627) Jewellery Designer ID - [id number] 01:23:00 Test Item Value Reference Range Interpretation Comments PARTIAL THROMBOPLASTIN 109.9 seconds 22.5-36.0 H B.no .330065 ok to TIME (BEAKER) (test released result. code = 760) Prior to initiating heparinCBC W/PLT COUNT & AUTO [id number] 01:02:00 Test Item Value Reference Range Interpretation [...] (a) (test 57 nmol/L <75 code = 2656333) KAREN (test code = KAREN) Performing Lab EZ [facility] [address] [place] [address] I Bright BUENO, PhD, ROBY [facility] [id number] 09:17:00 Test Item Value Reference Range Interpretation Comments POC-GLUCOSE METER 161 mg/dL 70-110 H : TESTED A T [facility] 6720 (BEAKER) (test code = [place] [place], 1538) [address]: Jewellery Designer/Techni rebeca ID = [id number] for DANIELE BAKER BASIC METABOLIC [id number] 07:10:00 Test Item Value Reference Range Interpretation [...] NOT APPLICABLE FOR DIALYSIS PATIEN TS. URIC [id number] 07:07:00 Test Item Value Reference Range Interpretation Comments URIC ACID (BEAKER) (test code = 9.9 mg/dL 2.6-7.2 H 773) [id number] 07:07:00 Test Item Value Reference Range Interpretation Comments MAGNESIUM (BEAKER) (test code = 2.3 mg/dL 1.6-2.6 627) [id number] 07:07:00 Test Item Value Reference Range Interpretation Comments PHOSPHORUS (BEAKER) (test code = 3.3 mg/dL 2.3-4.7 604) B-TYPE NATRIURETIC FACTOR (BNP)2019-01-30 06:44:00 Test Item Value Reference Range Interpretation Comments B-TYPE NATRIURETIC PEPTIDE (BEAKER) 365 pg/mL 0-100 H (test code = 700) CALCIUM, [id number] 06:31:00 Test Item Value Reference Range Interpretation Comments CALCIUM IONIZED (BEAKER) (test 1.08 mmol/L 1.12-1.27 L code = 698) PH, BLOOD (BEAKER) (test code = 7.41 1810) CBC W/PLT COUNT & AUTO [id number] 06:17:00 Test Item Value Reference Range Interpretation [...] PERCENT (BEAKER) (test code = 2801) POCT-GLUCOSE [id number] 21:20:00 Test Item Value Reference Range Interpretation Comments POC-GLUCOSE METER 140 mg/dL 70-110 H : TESTED A T [facility] 6720 (BEAKER) (test code = [facility] [employer] [facility], 1538) 33097: Jewellery Designer/Techni rebeca ID = [id number] for Fatmata Robison CREATININE, RANDOM [id number] 19:07:00 Test Item Value Reference Range Interpretation Comments CREATININE URINE (BEAKER) (test 101.3 mg/dL code = 375) Reference Range: No NormalsPROTEIN, RANDOM [id number] 19:07:00 Test Item Value Reference Range Interpretation Comments PROTEIN, URINE (BEAKER) (test code = 24 mg/dL 0-14 H 1569) SODIUM, RANDOM [id number] 19:07:00 Test Item Value Reference Range Interpretation Comments SODIUM URINE (BEAKER) (test code = 27 meq/L 243) Reference Range: No NormalsPOCT-GLUCOSE [id number] 17:13:00 Test Item Value Reference Range Interpretation Comments POC-GLUCOSE METER 172 mg/dL 70-110 H : TESTED A T [facility] 6720 (BEAKER) (test code = [facility] [employer] [facility], 1538) [address]: Jewellery Designer/Techni rebeca ID = [id number] for NICOLE SANTOS JOHNATHAN URINALYSIS W/ [id number] 15:46:00 Test Item Value Reference Range Interpretation [...] SOURCE(BEAKER) (test code = 2795) BASIC METABOLIC [id number] 13:57:00 Test Item Value Reference Range Interpretation [...] S NOT APPLICABLE FOR DIALYSIS PATIEN TS. [id number] 13:56:00 Test Item Value Reference Range Interpretation Comments PHOSPHORUS (BEAKER) (test code = 2.6 mg/dL 2.3-4.7 604) [id number] 13:56:00 Test Item Value Reference Range Interpretation Comments MAGNESIUM (BEAKER) (test code = 2.4 mg/dL 1.6-2.6 627) RAD, CHEST, 1 VIEW, NON [id number] 13:55:00Reason for exam:->Fluid statusShould this be performed at the bedside?->YesFINAL REPORT AP chest Comparison exam: 01/25/2019 History provided: Fluid status Heart size magnified by projection. Lungs currently grossly clear, and vascularity normal. Chronicdeformity of the right humeral neck. Signed: Atul Malave MDReport Verified Date/Time: 01/29/2019 13:55:37 Reading Location: [facility] Diagnostic Imaging Reading Room - [facility] 1.310.12 POCT-GLUCOSE [id number] 11:49:00 Test Item Value Reference Range Interpretation Comments POC-GLUCOSE METER 273 mg/dL 70-110 H : TESTED A T [facility] 6720 (BEAKER) (test code = JODY Brandan [facility], 1538) 35698: Jewellery Designer/Techni rebeca ID = [id number] for Tatyana Sterling Clostridium difficile GDH [id number] 11:07:00 Test Item Value Reference Range Interpretation Comments C. Difficle Toxin Negative Negative (test code = 4698449893) C. Difficile GDH Positive Negative A C. difficil e Antigen (test code = present but toxin 7889868711) not detected. Indicates colonization wi th non-toxigenic strain or level of toxin below detectable levels. No nee d for enteric isolation. Treatment is rarely needed (only when stro ng clinical suspicion for Clostridium difficile infection) KAREN (test code = Testing performed KRAEN) by [employer] Rapid Cassette Assay. For GDH, published sensitivity of the assay is 98.7% compared to cytotoxicity testing. For Toxin AB, published sensitivity is 87.8% and specificity 99.4% compared to cytotoxicity testing.Verificati on of kit performance was done by the [facility] Microbiology Lab prior to clinical use. Lab Interpretation Abnormal (test code = 44013-7) [facility] Diego[facility] DIFFICILE GDH [id number] 11:07:00 Test Item Value Reference Range Interpretation Comments CDT TOXIN (test code Negative Negative = 4593331000) CDT GDH ANTIGEN Positive Negative A C. difficile present but (test code = toxin not detec elva. 4303363800) Indicates colon ization with non-toxige alexis strain or level of tox in below detectable leve ls. No need for enteri c isolation. Sandoval atment is rarely needed ( only when strong clinical suspicion for Clostridium difficile infection) Testing performed by [email or web address] Rapid Cassette Assay. For GDH, published sensitivity of the assay is 98.7% compared to cytotoxicity testing. For Toxin AB, published sensitivity is 87.8% and specificity 99.4% compared to cytotoxicity testing.Verification of kit performance was done by the [facility] Microbiology Lab prior to clinical use.POCT-GLUCOSE [id number] 07:57:00 Test Item Value Reference Range Interpretation Comments POC-GLUCOSE METER 227 mg/dL 70-110 H : TESTED A T [facility] 6720 (BEAKER) (test code = JODY Gipson [facility], 1538) 72762: Jewellery Designer/Techni rebeca ID = [id number] for Tatyana Sterling CBC (HEMOGRAM ONLY)2019-01-29 05:39:00 [...] (BEAKER) (test code = 413) Occult blood, [id number] 22:07:00 Test Item Value Reference Range Interpretation Comments Occult blood (test code = 2335-8) Negative Negative Lab Interpretation (test code = Normal 81158-5) [facility] [id number] 22:07:00 Test Item Value Reference Range Interpretation Comments POC-GLUCOSE METER 229 mg/dL 70-110 H : TESTED A T [facility] 6720 (BEAKER) (test code = [place], 1538) 57594: Jewellery Designer/Techni rebeca ID = [id number] for FI TE, SELINA OCCULT BLOOD, [id number] 22:07:00 Test Item Value Reference Range Interpretation Comments FECAL OCCULT BLOOD (BEAKER) (test Negative Negative code = 618) Transthoracic 2D echo w/ doppler (cw/pw/color)2019-01-28 15:33:30Ejection FractionSLEH ECHO HEARTLAB MKCKESSON CPACSInterface, External Ris In - 01/28/2019 3:33 PM CSTTransthoracic Echocardiography Report (TTE) Demographics Patient Name HENRIQUE ARECHIGA Date of Study 01/28/2019 ESCOBDEO Gender Female Visit Number [id number] Race Room Number 8A11 Number Date of 1940 Referring Physician Age 78 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 Melani Dozier [facility] Interpreting Garry Goodwin Physician Procedure Type of [...] LVOT CO: 4.43 l/min LVOT CI: 2.52 l/min/m^2CMountain Community Medical ServicesPOCT-GLUCOSE METER 2019-01-28 12:00:00 Test Item Value Reference Range Interpretation Comments POC-GLUCOSE METER 208 mg/dL 70-110 H : Notified RN/MD: (CRITSY) (test code = TESTED AT [facility] 9069 1077) [facility], [address]: Jewellery Designer/Techni rebeca ID = [id number] for Veena Omalley [id number] 09:10:00 Test Item Value Reference Range Interpretation Comments PARTIAL THROMBOPLASTIN TIME 77.4 seconds 22.5-36.0 H (CRISTY) (test code = 760) POCT-GLUCOSE [id number] 08:40:00 Test Item Value Reference Range Interpretation Comments POC-GLUCOSE METER 153 mg/dL 70-110 H : TESTED A T [facility] 6720 (BEAKER) (test code [facility], = 1538) 52595: Jewellery Designer/Techni rebeca ID = [id number] for JANETH OTT BASIC METABOLIC [id number] 05:15:00 Test Item Value Reference Range Interpretation [...] I S NOT APPLICABLE FOR DIALYSIS PATIEN [id number] 05:11:00 Test Item Value Reference Range Interpretation [...] 0-0 (BEAKER) (test code = 413) POCT-GLUCOSE [id number] 22:29:00 Test Item Value Reference Range Interpretation Comments POC-GLUCOSE METER 235 mg/dL 70-110 H : TESTED A T [facility] 6720 (BEAKER) (test code = [facility] [employer] [facility], 1538) 58573: Jewellery Designer/Techni rebeca ID = [id number] for HUGH COCHRAN [id number] 21:49:00 Test Item Value Reference Range Interpretation Comments PARTIAL THROMBOPLASTIN TIME 81.9 seconds 22.5-36.0 H (BEAKER) (test code = 760) POCT-GLUCOSE [id number] 17:50:00 Test Item Value Reference Range Interpretation Comments POC-GLUCOSE METER 236 mg/dL 70-110 H : TESTED A T [facility] 6720 (BEAKER) (test code = [facility] [employer] [facility], 1538) 12846: Jewellery Designer/Techni rebeca ID = [id number] for INDIO ISAACS [id number] 16:52:00 Test Item Value Reference Range Interpretation [...] INR is2.5-3.5 for patients wiht mechanical heart valves.PT/[id number] 13:41:00 Test Item Value Reference Range Interpretation [...] is2.5-3.5 for patients wiht mechanical heart valves.POCT-GLUCOSE [id number] 12:47:00 Test Item Value Reference Range Interpretation Comments POC-GLUCOSE METER 229 mg/dL 70-110 H : TESTED A T [facility] 6720 (BEAKER) (test code = [facility], 1538) 68598: Jewellery Designer/Techni rebeca ID = [id number] for QU EDER, INDIO POCT-GLUCOSE [id number] 09:42:00 Test Item Value Reference Range Interpretation Comments POC-GLUCOSE METER 188 mg/dL 70-110 H : TESTED A T [facility] 6720 (BEAKER) (test code = [facility], 1538) 46314: Jewellery Designer/Techni rebeca ID = [id number] for QU EDER, INDIO [id number] 06:24:00 Test Item Value Reference Range Interpretation Comments PARTIAL THROMBOPLASTIN TIME 86.3 seconds 22.5-36.0 H (BEAKER) (test code = 760) BASIC METABOLIC [id number] 04:52:00 Test Item Value Reference Range Interpretation [...] S NOT APPLICABLE FOR DIALYSIS PATIRADHA MERA. [id number] 04:25:00 Test Item Value Reference Range Interpretation [...] 150-450 code = 756) MEAN PLATELET VOLUME ([facility]) 9.8 fL 9.4-12.3 (test code = 754) NUCLEATED RED BLOOD CELLS 0 /100 WBC 0-0 ([facility]) (test code = 413) POCT-GLUCOSE [id number] 04:03:00 Test Item Value Reference Range Interpretation Comments POC-GLUCOSE METER 123 mg/dL 70-110 H : [facility]) (test code = [facility], 1538) 69263: Jewellery Designer/Techni rebeca ID = [id number] for ANDI ZUNIGA POCT-GLUCOSE [id number] 21:41:00 Test Item Value Reference Range Interpretation Comments POC-GLUCOSE METER 293 mg/dL 70-110 H : [facility]) (test code = [facility], 1538) 66377: Jewellery Designer/Techni rebeca ID = [id number] for ANDI ZUNIGA [id number] 19:17:00 Test Item Value Reference Range Interpretation Comments PARTIAL THROMBOPLASTIN TIME 27.4 seconds 22.5-36.0 ([facility]) (test code = 760) Prior to initiating heparinPLATELET [id number] 18:53:00 Test Item Value Reference Range Interpretation Comments PLATELET COUNT ([facility]) (test 249 K/CU MM 150-450 code = 756) POCT-GLUCOSE [id number] 13:46:00 Test Item Value Reference Range Interpretation Comments POC-GLUCOSE METER 246 mg/dL 70-110 H : Notified RN/MD: (CRISTY) (test code = TESTED AT [place] [address] 1538) [facility], [address]: Jewellery Designer/Techni rebeca ID = [id number] for Phi nisee, Veena POCT-GLUCOSE [id number] 08:33:00 Test Item Value Reference Range Interpretation Comments POC-GLUCOSE METER 124 mg/dL 70-110 H : Notified RN/MD: (CRISTY) (test code = TESTED AT [place] [address] 1538) [facility], [address]: Jewellery Designer/Techni rebeca ID = [id number] for Phi nisee, Veena TROPONIN [id number] 07:02:00 Test Item Value Reference Range Interpretation [...] 0-0 (BEAKER) (test code = 413) POCT-GLUCOSE [id number] 05:54:00 Test Item Value Reference Range Interpretation Comments POC-GLUCOSE METER 94 mg/dL 70-110 : TESTED A T [facility] 6720 (BEAKER) (test code = [place], 1538) [address]: Jewellery Designer/Techni rebeca ID = [id number] for ROSS , SYNTERIA RAD, CHEST, 1 VIEW, NON [id number] 03:34:00Reason for exam:->chest painShould this be performed [...] Ying MDReport Verified Date/Time: 01/26/2019 03:34:50 TROPONIColin [id number] 00:11:00 Test Item Value Reference Range Interpretation [...] acute neurological disease, and persistent tachyarrhythmia.COMPREHENSIVE METABOLIC [id number] 00:09:00 Test Item Value Reference Range Interpretation [...] pg/mL 0-100 H (test code = 700) [id number] 23:56:00 Test Item Value Reference Range Interpretation Comments MAGNESIUM (BEAKER) 2.3 mg/dL 1.6-2.6 Specimen slightly (test code = 627) hemolyzed [id number] 23:53:00 Test Item Value Reference Range Interpretation Comments PARTIAL THROMBOPLASTIN TIME 20.7 seconds 22.5-36.0 L (BEAKER) (test code = 760) Prior to initiating heparinProthrombin time/[id number] 23:41:00 Test Item Value Reference Range Interpretation [...] heparin Lab Interpretation Normal (test code = 98720-3) [facility] DiegoPROTHROMBIN TIME/[id number] 23:41:00 Test Item Value Reference Range Interpretation [...] per sliding scaleCBC W/PLT COUNT & AUTO [id number] 23:33:00 Test Item Value Reference Range Interpretation [...] PERCENT (BEAKER) (test code = 2801) POCT-GLUCOSE [id number] 22:21:00 Test Item Value Reference Range Interpretation Comments POC-GLUCOSE METER 210 mg/dL 70-110 H : TESTED A T [facility] 6720 (BEAKER) ([facility] = [facility], 1538) [address]: Jewellery Designer/Techni rebeca ID = [id number] for NICOLE BEE JEROME POCT-GLUCOSE [id number] 12:57:00 Test Item Value Reference Range Interpretation Comments POC-GLUCOSE METER 318 mg/dL 70-110 H : TESTED A T [facility] 6720 (BEAKER) (test code [facility], = 1538) [address]: Jewellery Designer/Techni rebeca ID = [id number] for LEX MEMBRENO POCT-GLUCOSE [id number] 08:08:00 Test Item Value Reference Range Interpretation Comments POC-GLUCOSE METER 263 mg/dL 70-110 H : TESTED A T [facility] 6720 (BEAKER) (test code = [place], 1538) [address]: Jewellery Designer/Techni rebeca ID = [id number] for NOVA PERSAUD CBC W/PLT COUNT & AUTO [id number] 05:21:00 Test Item Value Reference Range Interpretation [...] (BEAKER) (test code = 2801) BASIC METABOLIC [id number] 05:18:00 Test Item Value Reference Range Interpretation [...] S NOT APPLICABLE FOR DIALYSIS PATIEN TS. [id number] 05:17:00 Test Item Value Reference Range Interpretation Comments PHOSPHORUS (BEAKER) (test code = 4.4 mg/dL 2.3-4.7 604) [id number] 05:17:00 Test Item Value Reference Range Interpretation Comments MAGNESIUM (BEAKER) (test code = 2.0 mg/dL 1.6-2.6 627) B-TYPE NATRIURETIC FACTOR (BNP)2018-12-25 04:55:00 Test Item Value Reference Range Interpretation Comments B-TYPE NATRIURETIC PEPTIDE (BEAKER) 775 pg/mL 0-100 H (test code = 700) CALCIUM, [id number] 04:45:00 Test Item Value Reference Range Interpretation Comments CALCIUM IONIZED (BEAKER) (test 1.16 mmol/L 1.12-1.27 code = 698) PH, BLOOD ([facility]) (test code = 7.32 1810) POCT-GLUCOSE [id number] 23:15:00 Test Item Value Reference Range Interpretation Comments POC-GLUCOSE METER 280 mg/dL 70-110 H : Notified RN/MD: (CRISTY) (test code = TESTED AT [place] [address] 1538) [facility], [address]: Jewellery Designer/Techni rebeca ID = [id number] for KEZIA GILMOREA POCT-GLUCOSE [id number] 23:13:00 Test Item Value Reference Range Interpretation Comments POC-GLUCOSE METER 179 mg/dL 70-110 H : TESTED A T [place] [address] ([facility]) (test code = [facility], 1538) [address]: Jewellery Designer/Techni rebeca ID = [id number] for KEZIA GILMORE ORALIA [id number] 22:12:00 Test Item Value Reference Range Interpretation Comments ACTIVATED CLOTTING TIME 147 sec Refe rence Range: (BEAKER) (test code = 74-137 seconds, 441) Baseline/TESTED AT [place] [id number] [facility] 7703 0 [id number] 17:58:00 Test Item Value Reference Range Interpretation Comments ACTIVATED CLOTTING TIME 257 sec Refe rence Range: (BEAKER) (test code = 74-137 seconds, 441) Baseline/TESTED AT [place] 8659520 [facility] 7703 0 [id number] 17:57:00 Test Item Value Reference Range Interpretation Comments ACTIVATED CLOTTING TIME 252 sec Refe rence Range: (BEAKER) (test code = 74-137 seconds, 441) Baseline/TESTED AT [place] 8659520 [facility] 7703 0 POCT-GLUCOSE [id number] 12:58:00 Test Item Value Reference Range Interpretation Comments POC-GLUCOSE METER 150 mg/dL 70-110 H : TESTED A T [place] [address] (BEAKER) (test code = JODY Gipson [facility], 1538) [address]: Jewellery Designer/Techni rebeca ID = [id number] for MUKESH GOODRICH [id number] 08:41:00 Test Item Value Reference Range Interpretation Comments PARTIAL THROMBOPLASTIN TIME 69.4 seconds 22.5-36.0 H (BEAKER) (test code = 760) POCT-GLUCOSE [id number] 08:37:00 Test Item Value Reference Range Interpretation Comments POC-GLUCOSE METER 115 mg/dL 70-110 H : Notified RN/MD: (AKER) (test code = TESTED AT [facility] 6720 1538) [facility], [address]: Jewellery Designer/Techni rebeca ID = [id number] for Adilene Madrigal COMPREHENSIVE METABOLIC [id number] 01:52:00 Test Item Value Reference Range Interpretation [...] S NOT APPLICABLE FOR DIALYSIS PATIEN TS. [id number] 01:29:00 Test Item Value Reference Range Interpretation Comments PARTIAL THROMBOPLASTIN TIME 51.5 seconds 22.5-36.0 H (BEAKER) (test code = 760) POCT-GLUCOSE [id number] 18:32:00 Test Item Value Reference Range Interpretation Comments POC-GLUCOSE METER 185 mg/dL 70-110 H : TESTED A T [facility] 6720 (BEAKER) (test code = [facility], 1538) 65[address]: Jewellery Designer/Techni rebeca ID = [id number] for Akash Vera POCT-GLUCOSE [id number] 18:31:00 Test Item Value Reference Range Interpretation Comments POC-GLUCOSE METER 210 mg/dL 70-110 H : TESTED A T [facility] 6720 (BEAKER) (test code = [facility], 1538) 398[address]: Jewellery Designer/Techni rebeca ID = [id number] for Fr campos, Akash POCT-GLUCOSE [id number] 18:29:00 Test Item Value Reference Range Interpretation Comments POC-GLUCOSE METER 150 mg/dL 70-110 H : TESTED A T [facility] 6720 (BEAKER) (test code = [facility], 1538) [address]: Jewellery Designer/Techni rebeca ID = [id number] for LIZ PRIEST [id number] 16:30:00 Test Item Value Reference Range Interpretation Comments PARTIAL THROMBOPLASTIN TIME 98.0 seconds 22.5-36.0 H (BEAKER) (test code = 760) TROPONIN [id number] 09:11:00 Test Item Value Reference Range Interpretation Comments TROPONIN I (BEAKER) (test code = 0.97 ng/mL 0.00-0.03 [facility]) Troponin I (TnI) levels must be interpreted [...] failure, acidosis, acute neurological disease, and persistent tachyarrhythmia.[id number] 07:52:00 Test Item Value Reference Range Interpretation Comments PHOSPHORUS (BEAKER) (test code = 3.9 mg/dL 2.3-4.7 604) [id number] 07:52:00 Test Item Value Reference Range Interpretation Comments MAGNESIUM (BEAKER) (test code = 2.0 mg/dL 1.6-2.6 627) COMPREHENSIVE METABOLIC [id number] 07:52:00 Test Item Value Reference Range Interpretation [...] NOT APPLICABLE FOR DIALYSIS PATIEN TS. CALCIUM, [id number] 07:37:00 Test Item Value Reference Range Interpretation Comments CALCIUM IONIZED (BEAKER) (test 1.14 mmol/L 1.12-1.27 code = 698) PH, BLOOD (BEAKER) (test code = 7.40 1810) B-TYPE NATRIURETIC FACTOR (BNP)2018-12-23 06:42:00 Test Item Value Reference Range Interpretation Comments B-TYPE NATRIURETIC PEPTIDE (BEAKER) 190 pg/mL 0-100 H (test code = 700) [id number] 05:48:00 Test Item Value Reference Range Interpretation Comments PARTIAL THROMBOPLASTIN TIME 90.8 seconds 22.5-36.0 H (BEAKER) (test code = 760) CBC W/PLT COUNT & AUTO [id number] 05:35:00 Test Item Value Reference Range Interpretation [...] PERCENT (BEAKER) (test code = 2801) POCT-GLUCOSE [id number] 21:16:00 Test Item Value Reference Range Interpretation Comments POC-GLUCOSE METER 200 mg/dL 70-110 H : TESTED A T [facility] 6720 (AKER) (test code [facility], = 1538) 137[address]: Jewellery Designer/Techni rebeca ID = [id number] for GISSELLE OLMSTEAD [id number] 20:08:00 Test Item Value Reference Range Interpretation Comments PARTIAL THROMBOPLASTIN TIME 51.9 seconds 22.5-36.0 H (BEAKER) (test code = 760) POCT-GLUCOSE [id number] 17:37:00 Test Item Value Reference Range Interpretation Comments POC-GLUCOSE METER 211 mg/dL 70-110 H : TESTED A T [facility] 6720 (BEAKER) (test code = [facility], 1538) 04[address]: Jewellery Designer/Techni rebeca ID = [id number] for Kit Trivediille [id number] 13:26:00 Test Item Value Reference Range Interpretation Comments PARTIAL THROMBOPLASTIN TIME 65.2 seconds 22.5-36.0 H (BEAKER) (test code = 760) POCT-GLUCOSE [id number] 13:18:00 Test Item Value Reference Range Interpretation Comments POC-GLUCOSE METER 194 mg/dL 70-110 H : TESTED A T [facility] 6720 (BEAKER) (test code = [facility], 1538) 70[address]: Jewellery Designer/Techni rebeca ID = [id number] for Deepa Trivedi HEMOGLOBIN [id number] 10:07:00 Test Item Value Reference Range Interpretation Comments HEMOGLOBIN A1C (BEAKER) (test code = 10.2 % 4.3-6.1 H 368) [id number] 09:05:00 Test Item Value Reference Range Interpretation Comments Ferritin (test code = 2276-4) 195 ng/mL 5-275 Lab Interpretation (test code = Normal 99093-2) [facility]2019[facility] 09:05:00 Test Item Value Reference Range Interpretation Comments FERRITIN (BEAKER) (test code = 361) 195 ng/mL 5-275 POCT-GLUCOSE [id number] 08:37:00 Test Item Value Reference Range Interpretation Comments POC-GLUCOSE METER 202 mg/dL 70-110 H : TESTED A T [facility] 6720 (BEAKER) (test code = [facility], 1538) 54[address]: Jewellery Designer/Techni rebeca ID = [id number] for CLIFF JACOBO CALCIUM, [id number] 06:55:00 Test Item Value Reference Range Interpretation [...] 2502-3) Lab Interpretation (test code = Abnormal 04885-7) [facility] Diego[facility]ON, TIBC, % SAT. (WITHOUT FERRITIN)2018-12-22 06:37:00 Test Item Value Reference Range Interpretation Comments IRON (BEAKER) (test code = 547) 85.0 ug/dL 40.0-160.0 TOTAL IRON BINDING CAPACITY 226 ug/dL 250-450 L (BEAKER) (test code = 769) IRON % SATURATION (2) (BEAKER) 38 % 20-55 (test code = 2590) TROPONIN [id number] 05:40:00 Test Item Value Reference Range Interpretation [...] acute neurological disease, and persistent tachyarrhythmia.COMPREHENSIVE METABOLIC [id number] 05:39:00 Test Item Value Reference Range Interpretation [...] pg/mL 0-100 H (test code = 700) [id number] 05:32:00 Test Item Value Reference Range Interpretation Comments PHOSPHORUS (BEAKER) (test code = 4.8 mg/dL 2.3-4.7 H 604) [id number] 05:32:00 Test Item Value Reference Range Interpretation Comments MAGNESIUM (BEAKER) (test code = 2.0 mg/dL 1.6-2.6 627) [id number] 05:19:00 Test Item Value Reference Range Interpretation Comments PARTIAL THROMBOPLASTIN TIME 92.9 seconds 22.5-36.0 H (BEAKER) (test code = 760) Reticulocyte [id number] 05:11:00 Test Item Value Reference Range Interpretation Comments % Retic (test code = 22813-6) 2.0 % 0.5-1.7 H Lab Interpretation (test code = Abnormal 42994-1) [facility] DiegoRETICULOCYTE [id number] 05:11:00 Test Item Value Reference Range Interpretation Comments RETICULOCYTE COUNT PCT (BEAKER) (test 2.0 % 0.5-1.7 H code = 575) CBC W/PLT COUNT & AUTO [id number] 05:11:00 Test Item Value Reference Range Interpretation [...] (BEAKER) (test code = 2801) U/S, RENAL, [id number] 01:46:00Reason for exam:->AKIShould this be performed at [...] Ying MDReport Verified Date/Time: 12/22/2018 01:46:35 POCT-GLUCOSE [id number] 22:07:00 Test Item Value Reference Range Interpretation Comments POC-GLUCOSE METER 105 mg/dL 70-110 : TESTED A T [facility] 6720 (BEAKER) (test code = [facility], 1538) 39[address]: Jewellery Designer/Techni rebeca ID = [id number] for Iza Hamilton [id number] 20:19:00 Test Item Value Reference Range Interpretation Comments PARTIAL THROMBOPLASTIN TIME 75.7 seconds 22.5-36.0 H (BEAKER) (test code = 760) POCT-GLUCOSE [id number] 17:42:00 Test Item Value Reference Range Interpretation Comments POC-GLUCOSE METER 305 mg/dL 70-110 H : TESTED A T [facility] 6720 (BEAKER) (test code = [facility], 1538) [address]: Jewellery Designer/Techni rebeca ID = [id number] for CLIFF JACOBO URINALYSIS W/ [id number] 14:46:00 Test Item Value Reference Range Interpretation [...] SOURCE(BEAKER) (test code = 2795) CREATININE, RANDOM [id number] 14:45:00 Test Item Value Reference Range Interpretation Comments CREATININE URINE (BEAKER) (test 123.0 mg/dL code = 375) Reference Range: No [id number] 14:24:00 Test Item Value Reference Range Interpretation Comments PARTIAL THROMBOPLASTIN TIME 67.3 seconds 22.5-36.0 H (BEAKER) (test code = 760) PROTEIN, RANDOM [id number] 14:23:00 Test Item Value Reference Range Interpretation Comments PROTEIN, URINE (BEAKER) (test code = 20 mg/dL 0-14 H 1569) SODIUM, RANDOM [id number] 14:23:00 Test Item Value Reference Range Interpretation Comments SODIUM URINE (BEAKER) (test code = 26 meq/L 243) Reference Range: No Spdygwu8K Echo W/Doppler(CW/PW/Color)2018-12-21 12:36:19 Ejection FractionSLEH ECHO HEARTLAB MKCKESSON CPACSInterface, External Ris In - 12/21/2018 12:36 PM CDTTransthoracic Echocardiography Report (TTE) Demographics Patient Name HENRIQUE ARECHIGA Date of Study 12/21/2018 RANDEE Gender Female Visit Number [id number] Race Room Number 6105 Number Date of 1940 Referring Peyton Palmer S Physician Age 78 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 Destini Silva, ALEJANDRO, RDCS,RVT,RDMS [employer] Nader Finley Interpreting Kash Carr MD Physician [...] CO: 4.47 l/min LVOT CI: 2.63 l/min/m^2CH[facility] HospitalTROPONOLVIA [id number] 12:25:00 Test Item Value Reference Range Interpretation [...] acidosis, acute neurological disease, and persistent tachyarrhythmia.POCT-GLUCOSE [id number] 10:12:00 Test Item Value Reference Range Interpretation Comments POC-GLUCOSE METER 177 mg/dL 70-110 H : TESTED A T [facility] 6720 (CRISTY) (test code = [place], 1538) [address]: Jewellery Designer/Techni rebeca ID = [id number] for CLIFF JACOBO PT/[id number] 07:55:00 Test Item Value Reference Range Interpretation [...] INR is2.5-3.5 for patients wiht mechanical heart valves.[id number] 05:00:00 Test Item Value Reference Range Interpretation Comments PARTIAL THROMBOPLASTIN TIME 132.7 seconds 22.5-36.0 H (BEOJ) (test code = 760) 6 hours after starting heparin infusion and as indicated per sliding scale TROPONIN [id number] 04:38:00 Test Item Value Reference Range Interpretation [...] acute neurological disease, and persistent tachyarrhythmia.BASIC METABOLIC [id number] 04:37:00 Test Item Value Reference Range Interpretation [...] 0-0 (BEAKER) (test code = 413) TROPONIN [id number] 01:13:00 Test Item Value Reference Range Interpretation [...] acidosis, acute neurological disease, and persistent tachyarrhythmia.POCT-GLUCOSE [id number] 00:48:00 Test Item Value Reference Range Interpretation Comments POC-GLUCOSE METER 226 mg/dL 70-110 H : TESTED A T [facility] 6720 ([facility]) (test code = JODY Gip[facility], 1538) [address]: Jewellery Designer/Techni rebeca ID = [id number] for TISHA BISHOP LU RAD, CHEST, 1 VIEW, NON [id number] 21:25:00Reason for exam:->chest painShould this be performed [...] Wilson Valdez MDReport Verified Date/Time:12/20/2018 21:25:44 LY [id number] 21:11:00 Test Item Value Reference Range Interpretation [...] (BEAKER) (test code = 700) COMPREHENSIVE METABOLIC [id number] 21:05:00 Test Item Value Reference Range Interpretation [...] S NOT APPLICABLE FOR DIALYSIS PATIEN TS. [id number] 21:02:00 Test Item Value Reference Range Interpretation Comments MAGNESIUM (BEAKER) (test code = 2.0 mg/dL 1.6-2.6 627) [id number] 20:58:00 Test Item Value Reference Range Interpretation [...] mechanical heart valves.CBC W/PLT COUNT & AUTO [id number] 20:46:00 Test Item Value Reference Range Interpretation [...] PERCENT (BEAKER) (test code = 2801) CRITICAL [id number] 20:19:22HaPapito manning MD 12/26/2018 3:29 PMCritical CarePerformed [...] or surrogate and interpretation of cardiac output measurements.[facility] DiegoTreadmill tolerance(Non-Nuclear Treadmill)2018-11-23 15:05:04Interface, External Ris In - [...] by MD MARTA, INDRA ([id number]) on 11/23/2018 3:05:01PMChildren's Hospital of San DiegoPOCT-GLUCOSE [id number] 11:57:00 Test Item Value Reference Range Interpretation Comments POC-GLUCOSE METER 377 mg/dL 70-110 H TESTED AT [address]) (test code = [facility] 1538) [address] POCT-GLUCOSE [id number] 09:11:00 Test Item Value Reference Range Interpretation Comments POC-GLUCOSE METER 95 mg/dL 70-110 TESTED AT [address]) (test code = [facility] [address] 1538) POCT-GLUCOSE [id number] 06:53:00 Test Item Value Reference Range Interpretation Comments POC-GLUCOSE METER 288 mg/dL 70-110 H TESTED AT [address]) (test code = [facility] 1538) [address] COMPREHENSIVE METABOLIC [id number] 01:54:00 Test Item Value Reference Range Interpretation [...] S NOT APPLICABLE FOR DIALYSIS PATIEN TS. [id number] 01:49:00 Test Item Value Reference Range Interpretation Comments ACTIVATED CLOTTING TIME 142 sec Refe rence Range: (BEAKER) (test code = 74-137 seconds, 441) Baseline/TESTED AT [facility] 6720 [facility] 7703 0 B-TYPE NATRIURETIC FACTOR (BNP)2018-11-13 01:42:00 Test Item Value Reference Range Interpretation Comments B-TYPE NATRIURETIC PEPTIDE 1151 pg/mL 0-100 H (BEAKER) (test code = 700) URINALYSIS W/ [id number] 01:40:00 Test Item Value Reference Range Interpretation [...] = 516) SOURCE(BEAKER) (test code = 2795) [id number] 01:36:00 Test Item Value Reference Range Interpretation Comments MAGNESIUM (BEAKER) 2.0 mg/dL 1.6-2.6 Specimen slightly (test code = 627) hemolyzed [id number] 01:36:00 Test Item Value Reference Range Interpretation Comments PHOSPHORUS (BEAKER) 4.4 mg/dL 2.3-4.7 Specimen slightly (test code = 604) hemolyzed CBC W/PLT COUNT & AUTO [id number] 01:24:00 Test Item Value Reference Range Interpretation [...] PERCENT (BEAKER) (test code = 2801) CALCIUM, [id number] 01:16:00 Test Item Value Reference Range Interpretation Comments CALCIUM IONIZED (CRISTY) (test 1.10 mmol/L 1.12-1.27 L code = 698) PH, BLOOD (CRISTY) (test code = 7.32 1810) [id number] 23:34:00 Test Item Value Reference Range Interpretation Comments ACTIVATED CLOTTING TIME 164 sec Refe rence Range: (CRISTY) (test code = 74-137 seconds, 441) Baseline/TESTED AT [address] 770 0 [id number] 21:52:00 Test Item Value Reference Range Interpretation Comments ACTIVATED CLOTTING TIME 191 sec Refe rence Range: (CRISTY) (test code = 74-137 seconds, 441) Baseline/TESTED AT [address] 7703 0 POCT-GLUCOSE [id number] 21:33:00 Test Item Value Reference Range Interpretation Comments POC-GLUCOSE METER 294 mg/dL 70-110 H TESTED AT [place] [address] ([facility]) (test code = [facility] 1538) [address] C. DIFFICILE GDH [id number] 20:08:00 Test Item Value Reference Range Interpretation Comments CDT TOXIN (test code Negative Negative = [id number]) CDT GDH ANTIGEN Positive Negative A C. difficile present but (test code = toxin not detec elva. [id number]) Indicates colon ization with non-toxige alexis strain [...] of kit performance was done by the [facility] Microbiology Lab prior to clinical use.[id number] 17:58:00 Test Item Value Reference Range Interpretation Comments ACTIVATED CLOTTING TIME 290 sec Refe rence Range: (BEOJ) (test code = 74-137 seconds, 441) Baseline/TESTED AT [address] 7703 0 [id number] 16:57:00 Test Item Value Reference Range Interpretation Comments ACTIVATED CLOTTING TIME 263 sec Refe rence Range: (BEAKER) (test code = 74-137 seconds, 441) Baseline/TESTED AT [facility] 6720 [facility] 7703 0 [id number] 16:20:00 Test Item Value Reference Range Interpretation Comments ACTIVATED CLOTTING TIME 252 sec Refe rence Range: (BEAKER) (test code = 74-137 seconds, 441) Baseline/TESTED AT [address] 7703 0 PET, CARDIAC PERFUSION MULTIPLE STUDIES, REST AND [id number] 15:26:00 Reason for exam:->eval chest pain, ischemiaFINAL REPORT PROCEDURE: MYOCARDIAL PERFUSION PET IMAGING (Rest/Stress)CPT CODE: 27082 INDICATION: Evaluate extent of known CAD, chest [...] rest.Symptoms: Chest discomfort, nausea, fatigue (Treatment was iiaonjwjveivh688yw IV).Perfusion: There is an absence of perfusionin [...] MDReport Verified Date/Time: 11/12/2018 15:26:40 Reading Location: [place] [id number] Reading Room N myocardial perfusion PET (rest and stress)2018-11-12 15:26:00Interface, External Ris In - 11/12/2018 3:28 PM CDTFINAL REPORT PROCEDURE: MYOCARDIAL PERFUSION PET IMAGING (Rest/Stress)CPT CODE: 15307 INDICATION: Evaluate extent of known CAD, chest [...] rest.Symptoms: Chest discomfort, nausea, fatigue (Treatment was aqmpvizgctoyl939ec IV).Perfusion: There is an absence of perfusion [...] MDReport Verified Date/Time: 11/12/2018 15:26:40 Reading Location: [address] Reading Room [facility] [id number] 10:22:00 Test Item Value Reference Range Interpretation Comments PARTIAL THROMBOPLASTIN TIME 90.3 seconds 22.5-36.0 H (BEAKER) (test code = 760) HEMOGLOBIN [id number] 09:39:00 Test Item Value Reference Range Interpretation Comments HEMOGLOBIN A1C (BEAKER) (test code = 12.0 % 4.3-6.1 H 368) POCT-GLUCOSE [id number] 08:37:00 Test Item Value Reference Range Interpretation Comments POC-GLUCOSE METER 281 mg/dL 70-110 H TESTED AT [facility] 6720 (BEAKER) (test code = [place] 1538) [address] [id number] 05:54:00 Test Item Value Reference Range Interpretation Comments PARTIAL THROMBOPLASTIN TIME 135.4 seconds 22.5-36.0 H (BEAKER) (test code = 760) CALCIUM, [id number] 05:31:00 Test Item Value Reference Range Interpretation Comments CALCIUM IONIZED (BEAKER) (test 1.10 mmol/L 1.12-1.27 L code = 698) PH, BLOOD (BEAKER) (test code = 7.39 1810) COMPREHENSIVE METABOLIC [id number] 04:56:00 Test Item Value Reference Range Interpretation [...] S NOT APPLICABLE FOR DIALYSIS PATIEN TS. [id number] 04:52:00 Test Item Value Reference Range Interpretation Comments MAGNESIUM (BEAKER) 2.0 mg/dL 1.6-2.6 Specimen slightly (test code = 627) hemolyzed [id number] 04:52:00 Test Item Value Reference Range Interpretation Comments PHOSPHORUS (BEAKER) 3.5 mg/dL 2.3-4.7 Specimen slightly (test code = 604) hemolyzed LIPID [id number] 04:52:00 Test Item Value Reference Range Interpretation [...] Very High >=190CBC W/PLT COUNT & AUTO [id number] 04:33:00 Test Item Value Reference Range Interpretation [...] 0-1 PERCENT (BEAKER) (test code = 2801) [id number] 22:22:00 Test Item Value Reference Range Interpretation Comments PARTIAL THROMBOPLASTIN TIME 86.6 seconds 22.5-36.0 H (BEAKER) (test code = 760) POCT-GLUCOSE [id number] 17:14:00 Test Item Value Reference Range Interpretation Comments POC-GLUCOSE METER 158 mg/dL 70-110 H TESTED AT [facility] 6720 (CRISTY) (test code = [place] 1538) [address] Transthoracic 2D echo w/ doppler (cw/pw/color)2018-11-11 16:06:08Ejection FractionSLEH ECHO HEARTLAB MKCKESSON CPACSInterface, External Ris In - 11/11/2018 4:06 PM CDTTransthoracic Echocardiography Report (TTE) Demographics Patient Name HENRIQUE ARECHIGA Date of Study 11/11/2018 ESCOBDEO Gender Female Visit Number [id number] Race Room Number 6102 Number Date of 1940 Referring Peyton Choe Physician Age 78 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 [employer] Amber Kaplan RDCS Interpreting Garry Goodwin Physician [...] CO: 4.03 l/min LVOT CI: 2.37 l/min/m^2[facility] HospitalAPTT2019-09-22 15:48:00 Test Item Value Reference Range Interpretation Comments PARTIAL THROMBOPLASTIN TIME 64.4 seconds 22.5-36.0 H ([facility]) (test code = 760) POCT-GLUCOSE [id number] 12:41:00 Test Item Value Reference Range Interpretation Comments POC-GLUCOSE METER 275 mg/dL 70-110 H TESTED AT [facility] 6720 ([facility]) (test code = JOSEPHMARY Gip[place] [address]) [address] RAD, CHEST, 1 VIEW, NON [id number] 09:33:00Reason for exam:->chest painShould this be performed at the bedside?->YesFINAL REPORT Comparison: 08/14/2018 TECHNIQUE: Single view of the chest FINDINGS: Trace bilateral pleural effusions. Lungs otherwise grossly clear. Cardiac silhouette is prominent. Aortic calcifications are seen. No acute skeletal abnormality. Signed: Terry Sauer Verified Date/Time: 11/11/2018 09:33:09 Reading Location: [facility] B1 C013T Transitional Reading Room Electr onically [...] acidosis, acute neurological disease, and persistent tachyarrhythmia.POCT-GLUCOSE [id number] 08:57:00 Test Item Value Reference Range Interpretation Comments POC-GLUCOSE METER 321 mg/dL 70-110 H Notified R Colin BUENO/TESTED (BEAKER) (test code = AT [facility] 6720 [facility] 7703 0 TROPONIN [id number] 08:29:00 Test Item Value Reference Range Interpretation [...] acute neurological disease, and persistent tachyarrhythmia.BASIC METABOLIC [id number] 08:26:00 Test Item Value Reference Range Interpretation [...] APPLICABLE FOR DIALYSIS PATIEN TS. Hepatic function [id number] 08:22:00 Test Item Value Reference Range Interpretation Comments Protein, Total (test code 7.3 6.0- 8.3 gm/dL Specimen slightly = 2885-2) hemolyzed Albumin (test code = 3.9 g/dL 3.5-5 Specime n slightly 31784-1) hemolyzed Total Bilirubin (test 0.5 mg/dL 0.2-1.2 [...] hemolyzed Lab Interpretation (test Normal code = 71025-6) [facility] Diego[facility]IUM2019-09-22 08:22:00 Test Item Value Reference Range Interpretation Comments MAGNESIUM (BEAKER) 2.2 mg/dL 1.6-2.6 Specimen slightly (test code = 627) hemolyzed HEPATIC FUNCTION [id number] 08:22:00 Test Item Value Reference Range Interpretation [...] = 700) CBC W/PLT COUNT & AUTO [id number] 07:04:00 Test Item Value Reference Range Interpretation [...] (BEAKER) (test code = 2801) TSH/T4 if [id number] 06:39:00 Test Item Value Reference Range Interpretation Comments TSH (test code = 62780-2) 1.17 0.35- 4.94 uIU/mL Lab Interpretation (test code = Normal 89791-8) [facility] DiegoTSH/FREE T4 IF [id number] 06:39:00 Test Item Value Reference Range Interpretation Comments THYROID STIMULATING HORMONE 1.17 uIU/mL 0.35-4.94 (BEAKER) (test code = 772) PT/[id number] 05:38:00 Test Item Value Reference Range Interpretation [...] is2.5-3.5 for patients wiht mechanical heart valves.POCT-GLUCOSE [id number] 12:11:00 Test Item Value Reference Range Interpretation Comments POC-GLUCOSE METER 111 mg/dL 70-110 H TESTED AT [facility] 6720 (BEAKER) (test code = [place] 1538) [address] CBC W/PLT COUNT & AUTO [id number] 10:11:00 Test Item Value Reference Range Interpretation [...] PERCENT (BEAKER) (test code = 2801) POCT-GLUCOSE [id number] 07:46:00 Test Item Value Reference Range Interpretation Comments POC-GLUCOSE METER 79 mg/dL 70-110 TESTED AT [place] [address] ([facility]) (test code = [facility] 18675 1538) BASIC METABOLIC [id number] 06:22:00 Test Item Value Reference Range Interpretation [...] NOT APPLICABLE FOR DIALYSIS PATIEN TS. POCT-GLUCOSE [id number] 20:51:00 Test Item Value Reference Range Interpretation Comments POC-GLUCOSE METER 176 mg/dL 70-110 H TESTED AT [place] [address] ([facility]) (test code = [facility] 1538) [address]11 POCT-GLUCOSE [id number] 18:25:00 Test Item Value Reference Range Interpretation Comments POC-GLUCOSE METER 84 mg/dL 70-110 TESTED AT [place] [address] [facility] (test code = [facility] [address] 1538) POCT-GLUCOSE [id number] 12:54:00 Test Item Value Reference Range Interpretation Comments POC-GLUCOSE METER 111 mg/dL 70-110 H TESTED AT [place] [address] (BEAKER) (test code = [facility] 1538) 79064 POCT-GLUCOSE [id number] 08:25:00 Test Item Value Reference Range Interpretation Comments POC-GLUCOSE METER 105 mg/dL 70-110 TESTED AT [place] [address] ([facility] (test code = [facility] 1538) [address] BASIC METABOLIC [id number] 06:26:00 Test Item Value Reference Range Interpretation [...] NOT APPLICABLE FOR DIALYSIS PATIEN TS. POCT-GLUCOSE [id number] 04:25:00 Test Item Value Reference Range Interpretation Comments POC-GLUCOSE METER 81 mg/dL 70-110 TESTED AT [place] [address] (BEAKER) (test code = [facility] [address]6958 1538) POCT-GLUCOSE [id number] 21:58:00 Test Item Value Reference Range Interpretation Comments POC-GLUCOSE METER 164 mg/dL 70-110 H TESTED AT [place] [address] (BEAKER) (test code = JODY Gipson [facility] 1538) 80087 POCT-GLUCOSE [id number] 18:38:00 Test Item Value Reference Range Interpretation Comments POC-GLUCOSE METER 98 mg/dL 70-110 TESTED AT [place] [address] (BEAKER) (test code = [facility] [address] 1538) POCT-GLUCOSE [id number] 13:14:00 Test Item Value Reference Range Interpretation Comments POC-GLUCOSE METER 105 mg/dL 70-110 TESTED AT [place] [address] (BEAKER) (test code = JODY Gipson [facility] 1538) 91919 POCT-GLUCOSE [id number] 08:12:00 Test Item Value Reference Range Interpretation Comments POC-GLUCOSE METER 115 mg/dL 70-110 H TESTED AT [place] [address] ([facility] (test code = [facility] 1538) 16084 BASIC METABOLIC [id number] 07:37:00 Test Item Value Reference Range Interpretation [...] NOT APPLICABLE FOR DIALYSIS PATIEN TS. POCT-GLUCOSE [id number] 07:22:00 Test Item Value Reference Range Interpretation Comments POC-GLUCOSE METER 128 mg/dL 70-110 H TESTED AT [place] [address] ([facility]) (test code = JODY Gipson [facility] 1538) 17737 POCT-GLUCOSE [id number] 04:05:00 Test Item Value Reference Range Interpretation Comments POC-GLUCOSE METER 95 mg/dL 70-110 TESTED AT [place] [address] ([facility]) (test code = JODY Gipson [facility] [address] 1538) POCT-GLUCOSE [id number] 04:05:00 Test Item Value Reference Range Interpretation Comments POC-GLUCOSE METER 68 mg/dL 70-110 L TESTED AT [place] [address] ([facility]) (test code = JODY Gipson [facility] [address]71[address] 1538) POCT-GLUCOSE [id number] 04:05:00 Test Item Value Reference Range Interpretation Comments POC-GLUCOSE METER 52 mg/dL 70-110 L TESTED AT [place] [address] ([facility]) (test code = JODY Gipson [facility] 799[address] 1538) POCT-GLUCOSE [id number] 22:26:00 Test Item Value Reference Range Interpretation Comments POC-GLUCOSE METER 132 mg/dL 70-110 H TESTED AT [place] [address] ([facility]) (test code = JODY Gipson [facility] 1538) 94145 POCT-GLUCOSE [id number] 19:58:00 Test Item Value Reference Range Interpretation Comments POC-GLUCOSE METER 134 mg/dL 70-110 H TESTED AT [place] [address] ([facility]) (test code = JODY Gipson [facility] 1538) 88000 POCT-GLUCOSE [id number] 13:11:00 Test Item Value Reference Range Interpretation Comments POC-GLUCOSE METER 148 mg/dL 70-110 H TESTED AT [place] [address] ([facility]) (test code = JODY Gipson [facility] 1538) 31433 POCT-GLUCOSE [id number] 12:30:00 Test Item Value Reference Range Interpretation Comments POC-GLUCOSE METER 183 mg/dL 70-110 H TESTED AT [place] [address] ([facility]) (test code = JODY Gipson [facility] 1538) 10255 CBC W/PLT COUNT & AUTO [id number] 10:37:00 Test Item Value Reference Range Interpretation Comments WHITE BLOOD CELL COUNT ([facility]) 7.4 K/ L 3.5-10.5 (test code [...] PERCENT (BEAKER) (test code = 2801) POCT-GLUCOSE [id number] 08:09:00 Test Item Value Reference Range Interpretation Comments POC-GLUCOSE METER 99 mg/dL 70-110 TESTED AT [place] [address] ([facility] (test code = JODY Gipson [facility] [address] 1538) BASIC METABOLIC [id number] 05:41:00 Test Item Value Reference Range Interpretation [...] NOT APPLICABLE FOR DIALYSIS PATIEN TS. POCT-GLUCOSE [id number] 21:42:00 Test Item Value Reference Range Interpretation Comments POC-GLUCOSE METER 171 mg/dL 70-110 H TESTED AT [facility] 67[address] ([facility] 1538) 71948 POCT-GLUCOSE [id number] 18:03:00 Test Item Value Reference Range Interpretation Comments POC-GLUCOSE METER 123 mg/dL 70-110 H TESTED AT [facility] 6720 ([facility] (test code = [facility] Brandan [facility] 1538) 26752 POCT-GLUCOSE [id number] 12:52:00 Test Item Value Reference Range Interpretation Comments POC-GLUCOSE METER 167 mg/dL 70-110 H TESTED AT [facility] 6720 ([facility] (test code = [facility] Brandan [facility] 1538) 76803 POCT-GLUCOSE [id number] 09:05:00 Test Item Value Reference Range Interpretation Comments POC-GLUCOSE METER 128 mg/dL 70-110 H TESTED AT [facility] 6787 (BEAKER) (test code = JODY [place] 1533) [address] CT, PELVIS, WO [id number] 08:42:00FINAL REPORT CT pelvis without contrast HISTORY: [...] MDReport Verified Date/Time: 08/16/2018 08:42:53 Reading Location: [facility] Radiology Reading Room BASIC METABOLIC [id number] 05:58:00 Test Item Value Reference Range Interpretation [...] NOT APPLICABLE FOR DIALYSIS PATIEN TS. POCT-GLUCOSE [id number] 03:05:00 Test Item Value Reference Range Interpretation Comments POC-GLUCOSE METER 157 mg/dL 70-110 H TESTED AT [place] [address] ([facility]) (test code = JODY Gipson [facility] 1538) 17692 POCT-GLUCOSE [id number] 20:57:00 Test Item Value Reference Range Interpretation Comments POC-GLUCOSE METER 106 mg/dL 70-110 TESTED AT [place] [address] ([facility]) (test code = [facility] 1538) 61990 POCT-GLUCOSE [id number] 18:13:00 Test Item Value Reference Range Interpretation Comments POC-GLUCOSE METER 237 mg/dL 70-110 H TESTED AT [place] [address] ([facility] (test code = [facility] 1538) 36767 POCT-GLUCOSE [id number] 13:47:00 Test Item Value Reference Range Interpretation Comments POC-GLUCOSE METER 172 mg/dL 70-110 H TESTED AT [place] [address] ([facility] (test code = [facility] 1538) 58083 POCT-GLUCOSE [id number] 08:50:00 Test Item Value Reference Range Interpretation Comments POC-GLUCOSE METER 155 mg/dL 70-110 H TESTED AT [place] [address] ([facility]) (test code = [facility] Brandan [facility] 1538) [address] BASIC METABOLIC [id number] 06:36:00 Test Item Value Reference Range Interpretation [...] 8.4-10.2 L (test code = 697) EGFR ([facility] (test 14 mL/min/1.73 ESTIMA ELVA GFR IS code = 1092) sq m NOT ACCURATE CREATININE CLEARANCE IN PREDICTING GLOMERULAR FILTRATION RATE . ESTIMATED GFR I S NOT APPLICABLE FOR DIALYSIS PATIEN TS. POCT-GLUCOSE [id number] 22:53:00 Test Item Value Reference Range Interpretation Comments POC-GLUCOSE METER 231 mg/dL 70-110 H TESTED AT [place] [address] ([facility]) (test code = [facility] 1538) 01487 POCT-GLUCOSE [id number] 17:51:00 Test Item Value Reference Range Interpretation Comments POC-GLUCOSE METER 169 mg/dL 70-110 H TESTED AT [place] [address] ([facility]) (test code = [facility] 1538) 97396 RESPIRATORY PANEL [id number] 15:45:00 Test Item Value Reference Range Interpretation [...] decisions. This sample was tested at the [facility] Molecular Diagnostics Laboratory using the [employer] Respiratory Panel. It is FDA cleared and has been verified and approved by the [facility] Molecular Diagnostics Laboratory for clinical use on nasopharyngeal swab specimens.The performance of the FilmArrayRP has not been established in individuals who received influenza vaccine. Recent administration ofa nasal influenza vaccine may cause false positive results for Influenza A and/orInfluenza B.URINALYSIS W/ REFLEX URINE [id number] 12:32:00 Test Item Value Reference Range Interpretation [...] 1578) SOURCE(BEAKER) (test code = 2795) POCT-GLUCOSE [id number] 12:29:00 Test Item Value Reference Range Interpretation Comments POC-GLUCOSE METER 222 mg/dL 70-110 H TESTED AT [facility] 6720 (BEAKER) (test code = [place]ODY [place] 1538) [address] CBC W/PLT COUNT & AUTO [id number] 10:12:00 Test Item Value Reference Range Interpretation [...] MDReport Verified Date/Time: 08/14/2018 09:50:21 Reading Location: [facility] Radiology Reading Room POCT-GLUCOSE [id number] 08:20:00 Test Item Value Reference Range Interpretation Comments POC-GLUCOSE METER 126 mg/dL 70-110 H TESTED AT [facility] 6720 (BEAKER) (test code = [facility] 1538) 68067 COMPREHENSIVE METABOLIC [id number] 07:13:00 Test Item Value Reference Range Interpretation [...] S NOT APPLICABLE FOR DIALYSIS PATIEN TS. [id number] 06:59:00 Test Item Value Reference Range Interpretation Comments PHOSPHORUS (BEAKER) (test code = 2.3 mg/dL 2.3-4.7 604) [id number] 06:59:00 Test Item Value Reference Range Interpretation Comments MAGNESIUM (BEAKER) (test code = 2.0 mg/dL 1.6-2.6 627) CALCIUM, [id number] 06:47:00 Test Item Value Reference Range Interpretation Comments CALCIUM IONIZED (BEAKER) (test 1.04 mmol/L 1.12-1.27 L code = 698) PH, BLOOD (BEAKER) (test code = 7.38 1810) POCT-GLUCOSE [id number] 23:29:00 Test Item Value Reference Range Interpretation Comments POC-GLUCOSE METER 196 mg/dL 70-110 H TESTED AT [facility] 6720 (BEAKER) (test code = [facility] 1538) [address]67 POCT-GLUCOSE [id number] 17:42:00 Test Item Value Reference Range Interpretation Comments POC-GLUCOSE METER 179 mg/dL 70-110 H TESTED AT [place] [address] (BEAKER) (test code = JODY Gipson [place] 1538) [address] POCT-GLUCOSE [id number] 12:19:00 Test Item Value Reference Range Interpretation Comments POC-GLUCOSE METER 189 mg/dL 70-110 H TESTED AT [place] [address] (BEAKER) (test code = JODY Gipson [place] 1538) [address]226 POCT-GLUCOSE [id number] 08:34:00 Test Item Value Reference Range Interpretation Comments POC-GLUCOSE METER 119 mg/dL 70-110 H TESTED AT [place] [address] (BEAKER) (test code = JODY Gipson [facility] 1538) 40107 COMPREHENSIVE METABOLIC [id number] 02:54:00 Test Item Value Reference Range Interpretation [...] S NOT APPLICABLE FOR DIALYSIS PATIEN TS. [id number] 02:48:00 Test Item Value Reference Range Interpretation Comments PHOSPHORUS (BEAKER) (test code = 2.2 mg/dL 2.3-4.7 L 604) [id number] 02:48:00 Test Item Value Reference Range Interpretation Comments MAGNESIUM (BEAKER) (test code = 1.5 mg/dL 1.6-2.6 L 627) CALCIUM, [id number] 02:32:00 Test Item Value Reference Range Interpretation Comments CALCIUM IONIZED (BEAKER) (test 0.93 mmol/L 1.12-1.27 L code = 698) PH, BLOOD (BEAKER) (test code = 7.53 1810) CBC W/PLT COUNT & AUTO [id number] 02:31:00 Test Item Value Reference Range Interpretation [...] PERCENT (BEAKER) (test code = 2801) POCT-GLUCOSE [id number] 02:17:00 Test Item Value Reference Range Interpretation Comments POC-GLUCOSE METER 97 mg/dL 70-110 TESTED AT [place] [address] ([facility] (test code = [facility] Brandan [facility] [address] 1538) POCT-GLUCOSE [id number] 21:04:00 Test Item Value Reference Range Interpretation Comments POC-GLUCOSE METER 147 mg/dL 70-110 H TESTED AT [place] [address] ([facility] (test code = [facility] Brandan [facility] 1538) 24544 POCT-GLUCOSE [id number] 17:42:00 Test Item Value Reference Range Interpretation Comments POC-GLUCOSE METER 172 mg/dL 70-110 H TESTED AT [place] [address] (BEAKER) (test code = [facility] 1538) 39574 POCT-GLUCOSE [id number] 12:05:00 Test Item Value Reference Range Interpretation Comments POC-GLUCOSE METER 124 mg/dL 70-110 H TESTED AT [place] [address] (BEAKER) (test code = [facility] Brandan [facility] 1538) 57442 POCT-GLUCOSE [id number] 07:37:00 Test Item Value Reference Range Interpretation Comments POC-GLUCOSE METER 94 mg/dL 70-110 TESTED AT [place] [address] ([facility]) (test code = JODY Gipson [facility] [address] 1538) RAD, CHEST, 1 VIEW, NON [id number] 04:50:00Reason for exam:->SOBShould this be performed at [...] [place] Verified Date/Time: 08/12/2018 04:50:01 Reading Location: [address] Reading Room POCT-GLUCOSE METER 2018-08-12 04:39:00 Test Item Value Reference Range Interpretation Comments POC-GLUCOSE METER 107 mg/dL 70-110 TESTED AT [place] [id number] ([facility]) (test code = JODY Gipson [facility] 1538) 14007 COMPREHENSIVE METABOLIC [id number] 04:16:00 Test Item Value Reference Range Interpretation [...] S NOT APPLICABLE FOR DIALYSIS PATIEN TS. [id number] 04:11:00 Test Item Value Reference Range Interpretation Comments PHOSPHORUS (BEAKER) (test code = 2.9 mg/dL 2.3-4.7 604) [id number] 04:11:00 Test Item Value Reference Range Interpretation Comments MAGNESIUM (BEAKER) (test code = 1.9 mg/dL 1.6-2.6 627) CBC W/PLT COUNT & AUTO [id number] 03:57:00 Test Item Value Reference Range Interpretation [...] PERCENT (BEAKER) (test code = 2801) CALCIUM, [id number] 03:25:00 Test Item Value Reference Range Interpretation Comments CALCIUM IONIZED (BEAKER) (test 1.10 mmol/L 1.12-1.27 L code = 698) PH, BLOOD (BEAKER) (test code = 7.43 1810) POCT-GLUCOSE [id number] 00:03:00 Test Item Value Reference Range Interpretation Comments POC-GLUCOSE METER 122 mg/dL 70-110 H TESTED AT [facility] 6720 (BEAKER) (test code = [place] 1538) [address] POCT-GLUCOSE [id number] 21:32:00 Test Item Value Reference Range Interpretation Comments POC-GLUCOSE METER 104 mg/dL 70-110 TESTED AT [facility] 6720 (BEAKER) (test code = J[place] 1538) [address]93 POCT-GLUCOSE [id number] 17:51:00 Test Item Value Reference Range Interpretation Comments POC-GLUCOSE METER 151 mg/dL 70-110 H TESTED AT [facility] 6720 (BEAKER) (test code = JODY Gipson [facility] 1538) 48195 BASIC METABOLIC [id number] 16:24:00 Test Item Value Reference Range Interpretation [...] S NOT APPLICABLE FOR DIALYSIS PATIEN TS. [id number] 16:22:00 Test Item Value Reference Range Interpretation Comments MAGNESIUM (BEAKER) 1.8 mg/dL 1.6-2.6 Specimen slightly (test code = 627) hemolyzed POCT-GLUCOSE [id number] 11:45:00 Test Item Value Reference Range Interpretation Comments POC-GLUCOSE METER 141 mg/dL 70-110 H TESTED AT [facility] 6720 (BEAKER) (test code = [facility] Brandan [facility] 1538) 9[address]79 POCT-GLUCOSE [id number] 07:51:00 Test Item Value Reference Range Interpretation Comments POC-GLUCOSE METER 112 mg/dL 70-110 H TESTED AT [facility] 6720 (BEAKER) (test code = [facility] Brandan [facility] 1538) 6[address] BASIC METABOLIC [id number] 05:18:00 Test Item Value Reference Range Interpretation [...] S NOT APPLICABLE FOR DIALYSIS PATIEN TS. [id number] 05:12:00 Test Item Value Reference Range Interpretation Comments MAGNESIUM (BEAKER) 2.0 mg/dL 1.6-2.6 Specimen moderately (test code = 627) hemolyzed CBC W/PLT COUNT & AUTO [id number] 04:19:00 Test Item Value Reference Range Interpretation [...] = 2801) RAD, CHEST, 1 VIEW, NON [id number] 03:48:00Reason for exam:->SOBShould this be performed at the bedside?->YesFINAL REPORT RAD, CHEST, 1 VIEW, NON DEPT INDICATION: SOB COMPARISON: Prior day's exam FINDINGS: Portable frontal view of the chest. IMPRESSION: Support Lines: Stable. Lungs and pleura: Unchanged airspace and pleural opacities. No pneumothorax.Heart and mediastinum: Stable contours. Additional findings: None. Signed: Socorro Méndez Verified Date/Time: 08/11/2018 03:48:09 -GLUCOSE [id number] 23:26:00 Test Item Value Reference Range Interpretation Comments POC-GLUCOSE METER 101 mg/dL 70-110 TESTED AT [facility] 6720 (BEAKER) (test code = JODY Gipson [place] 1538) [address] POCT-GLUCOSE [id number] 18:11:00 Test Item Value Reference Range Interpretation Comments POC-GLUCOSE METER 171 mg/dL 70-110 H TESTED AT [facility] 6720 (BEAKER) (test code = JODY Gipson [place] 1538) [address] BASIC METABOLIC [id number] 16:14:00 Test Item Value Reference Range Interpretation [...] S NOT APPLICABLE FOR DIALYSIS PATIEN TS. [id number] 16:07:00 Test Item Value Reference Range Interpretation Comments MAGNESIUM (BEAKER) (test code = 2.0 mg/dL 1.6-2.6 627) LACTIC ACID, [id number] 15:23:00 Test Item Value Reference Range Interpretation Comments LACTATE BLOOD ARTERIAL (2) 0.9 mmol/L 0.5-2.2 (BEAKER) (test code = 2874) RAD, CHEST, 1 VIEW, NON [id number] 15:07:00Reason for exam:- >hypoxemiaShould this be performed [...] MDReport Verified Date/Time: 08/10/2018 15:07:53 Reading Location: [address] Consult Reading Room BLOOD GAS, [id number] 14:53:00 Test Item Value Reference Range Interpretation [...] (test code = 1819) 44.0 % POCT-GLUCOSE [id number] 12:20:00 Test Item Value Reference Range Interpretation Comments POC-GLUCOSE METER 208 mg/dL 70-110 H TESTED AT [facility] 6720 (BEAKER) (test code = [place]ODY [place] 8636) 80[address] CBC W/PLT COUNT & AUTO [id number] 08:56:00 Test Item Value Reference Range Interpretation [...] MDReport Verified Date/Time: 08/10/2018 08:03:28 Reading Location: [facility] Radiology Reading Room POCT- GLUCOSE [id number] 07:51:00 Test Item Value Reference Range Interpretation Comments POC-GLUCOSE METER 129 mg/dL 70-110 H TESTED AT [facility] 6720 (BEAKER) (test code = [place] 1538) [address] POCT-GLUCOSE [id number] 06:38:00 Test Item Value Reference Range Interpretation Comments POC-GLUCOSE METER 193 mg/dL 70-110 H TESTED AT [facility] 6720 (BEAKER) (test code = JODY Gipson [place] 1538) [address] POCT-GLUCOSE [id number] 05:48:00 Test Item Value Reference Range Interpretation Comments POC-GLUCOSE METER 67 mg/dL 70-110 L TESTED AT [facility] 6720 (BEAKER) (test code = JODY Gipson [facility] [address] 1538) BASIC METABOLIC [id number] 05:07:00 Test Item Value Reference Range Interpretation [...] S NOT APPLICABLE FOR DIALYSIS PATIEN TS. [id number] 05:06:00 Test Item Value Reference Range Interpretation Comments MAGNESIUM (BEAKER) 2.0 mg/dL 1.6-2.6 Specimen slightly (test code = 627) hemolyzed POCT-GLUCOSE [id number] 20:02:00 Test Item Value Reference Range Interpretation Comments POC-GLUCOSE METER 95 mg/dL 70-110 TESTED AT [facility] 6720 (BEAKER) (test code = JODY Gipson [facility] [address] 1538) POCT-GLUCOSE [id number] 17:35:00 Test Item Value Reference Range Interpretation Comments POC-GLUCOSE METER 144 mg/dL 70-110 H TESTED AT [facility] 6720 (BEAKER) (test code = JODY Gipson [facility] 1538) 19086 POCT-GLUCOSE [id number] 13:42:00 Test Item Value Reference Range Interpretation Comments POC-GLUCOSE METER 180 mg/dL 70-110 H TESTED AT [place] [address] (BEAKER) (test code = JODY Gipson [facility] 1538) 31182 POCT-GLUCOSE [id number] 07:56:00 Test Item Value Reference Range Interpretation Comments POC-GLUCOSE METER 206 mg/dL 70-110 H TESTED AT [place] [address] (BEAKER) (test code = JODY Gipson [facility] 1538) 55713 CBC W/PLT COUNT & AUTO [id number] 06:25:00 Test Item Value Reference Range Interpretation [...] (BEAKER) (test code = 2801) BASIC METABOLIC [id number] 06:22:00 Test Item Value Reference Range Interpretation [...] PATIEN TS. RAD, CHEST, 1 VIEW, NON [id number] 05:59:00Reason for exam:->SOBShould this be performed at [...] Socorro Méndez Verified Date/Time: 08/09/2018 05:59:24 POCT-GLUCOSE [id number] 22:05:00 Test Item Value Reference Range Interpretation Comments POC-GLUCOSE METER 254 mg/dL 70-110 H TESTED AT [place] [address] ([facility]) (test code = JODY Gipson [facility] 1538) [address] POCT-GLUCOSE [id number] 18:33:00 Test Item Value Reference Range Interpretation Comments POC-GLUCOSE METER 271 mg/dL 70-110 H TESTED AT [place] [address] ([facility]) (test code = JODY Gipson [facility] 1538) [address] RAD, CHEST, 1 VIEW, NON [id number] 15:44:00Reason for exam:->IABP placementShould this be performed [...] Tracey Verified Date/Time: 08/08/2018 15:44:27 [facility], [facility], 1 VIEW, NON [id number] 13:42:00Reason for exam:->IABP positionShould this be performed [...] Tracey Verified Date/Time: 08/08/2018 13:42:06 Reading Location: [facility] Mammo Reading Room POCT-GLUCOSE [id number] 13:28:00 Test Item Value Reference Range Interpretation Comments POC-GLUCOSE METER 294 mg/dL 70-110 H TESTED AT [place] [address] ([facility]) (test code = JODY [place] 1538) [address] RAD, CHEST, 1 VIEW, NON [id number] 08:20:00Reason for exam:->SOBShould this be performed at [...] Sauerort Verified Date/Time: 08/08/2018 08:20:51 Reading Location: [facility] Radiology Reading Room POCT-GLUCOSE [id number] 07:57:00 Test Item Value Reference Range Interpretation Comments POC-GLUCOSE METER 286 mg/dL 70-110 H TESTED AT [facility] 6720 (BEAKER) (test code = JODY VENEGAS 1538) [address] CBC W/PLT COUNT & AUTO [id number] 05:11:00 Test Item Value Reference Range Interpretation [...] H PERCENT (BEAKER) (test code = 2801) [id number] 04:43:00 Test Item Value Reference Range Interpretation Comments MAGNESIUM (BEAKER) (test code = 2.3 mg/dL 1.6-2.6 627) BASIC METABOLIC [id number] 04:43:00 Test Item Value Reference Range Interpretation [...] NOT APPLICABLE FOR DIALYSIS PATIEN TS. POCT-GLUCOSE [id number] 22:27:00 Test Item Value Reference Range Interpretation Comments POC-GLUCOSE METER 279 mg/dL 70-110 H TESTED AT [facility] 6720 (BEAKER) (test code = JODY Brandan [place] 1538) [address] BASIC METABOLIC [id number] 22:17:00 Test Item Value Reference Range Interpretation [...] S NOT APPLICABLE FOR DIALYSIS PATIEN TS. [id number] 22:13:00 Test Item Value Reference Range Interpretation Comments MAGNESIUM (BEAKER) (test code = 2.1 mg/dL 1.6-2.6 627) [id number] 19:37:00 Test Item Value Reference Range Interpretation Comments ACTIVATED CLOTTING TIME 268 sec TEST ED AT [place] [address] ([facility]) (test code = [place] [address]) [address] [id number] 18:30:00 Test Item Value Reference Range Interpretation Comments ACTIVATED CLOTTING TIME 257 sec TEST ED AT [place] [address] ([facility]) (test code = [place] [address]) [address] [id number] 17:58:00 Test Item Value Reference Range Interpretation Comments ACTIVATED CLOTTING TIME 219 sec TEST ED AT [place] [address] ([facility]) (test code = [place] [address]) [address] [id number] 17:58:00 Test Item Value Reference Range Interpretation Comments ACTIVATED CLOTTING TIME > sec OUTS [employer]OSS[employer] MEASURING (BEAKER) (test code = RANGET ESTED AT [place] [address] 441) [facility] [address] POCT-GLUCOSE [id number] 12:23:00 Test Item Value Reference Range Interpretation Comments POC-GLUCOSE METER 169 mg/dL 70-110 H TESTED AT [place] [address] ([facility]) (test code = JODY Gipson [facility] 1538) [address] RAD, CHEST, 1 VIEW, NON [id number] 09:10:00Reason for exam:->SOBShould this be performed at the bedside?->YesFINAL REPORT Chest dated 08/07/2018 COMPARISON: 08/06/2018 Clinical Information: SOB Comment: Heart is enlarged. Pulmonary vasculature is indistinct. Interstitial disease is seen bilaterally suggestive of vascular congestion or pulmonary edema. There is small bilateral pleural effusion. IMPRESSION: No interval change. Signed: Yuan Arango MDReport Verified Date/Time: 08/07/2018 09:10:23 Reading Location: [facility] Radiology Reading Room POCT-GLUCOSE [id number] 07:49:00 Test Item Value Reference Range Interpretation Comments POC-GLUCOSE METER 165 mg/dL 70-110 H TESTED AT [place] [address] ([facility]) (test code = JODY Gipson [facility] 1538) [address] COMPREHENSIVE METABOLIC [id number] 06:00:00 Test Item Value Reference Range Interpretation [...] S NOT APPLICABLE FOR DIALYSIS PATIEN TS. [id number] 05:56:00 Test Item Value Reference Range Interpretation Comments PHOSPHORUS (BEAKER) (test code = 2.9 mg/dL 2.3-4.7 604) [id number] 05:56:00 Test Item Value Reference Range Interpretation Comments MAGNESIUM (BEAKER) (test code = 2.0 mg/dL 1.6-2.6 627) CBC W/PLT COUNT & AUTO [id number] 05:42:00 Test Item Value Reference Range Interpretation [...] PERCENT (BEAKER) (test code = 2801) CALCIUM, [id number] 05:32:00 Test Item Value Reference Range Interpretation Comments CALCIUM IONIZED (BEAKER) (test 1.12 mmol/L 1.12-1.27 code = 698) PH, BLOOD (BEAKER) (test code = 7.36 1810) POCT-GLUCOSE [id number] 21:35:00 Test Item Value Reference Range Interpretation Comments POC-GLUCOSE METER 143 mg/dL 70-110 H TESTED AT [place] [address] [facility] (test code = [facility] 1538) [address] POCT-GLUCOSE [id number] 17:31:00 Test Item Value Reference Range Interpretation Comments POC-GLUCOSE METER 105 mg/dL 70-110 TESTED AT [place] [address] ([facility]) (test code = [facility] 1538) [address] POCT-GLUCOSE [id number] 12:46:00 Test Item Value Reference Range Interpretation Comments POC-GLUCOSE METER 159 mg/dL 70-110 H TESTED AT [place] [address] ([facility]) (test code = [facility] 1538) [address] POCT-GLUCOSE [id number] 07:40:00 Test Item Value Reference Range Interpretation Comments POC-GLUCOSE METER 120 mg/dL 70-110 H TESTED AT [facility] 6720 (BEAKER) (test code = [place] [address]38) [address] [id number] 04:52:00 Test Item Value Reference Range Interpretation Comments MAGNESIUM (BEAKER) (test code = 1.8 mg/dL 1.6-2.6 627) BASIC METABOLIC [id number] 04:52:00 Test Item Value Reference Range Interpretation [...] PATIEN TS. RAD, CHEST, 1 VIEW, NON [id number] 04:45:00Reason for exam:->SOBShould this be performed at [...] [place] Verified Date/Time: 08/06/2018 04:45:08 Reading Location: [address] Reading Room APTT 2018-08-06 04:31:00 Test Item Value Reference Range Interpretation Comments PARTIAL THROMBOPLASTIN TIME 45.7 seconds 22.5-36.0 H (BEAKER) (test code = 760) 4 hours after the start of continuous infusion and 4 hours after any rate change CBC W/PLT COUNT & AUTO [id number] 04:23:00 Test Item Value Reference Range Interpretation [...] PERCENT (AKER) (test code = 2801) POCT-GLUCOSE [id number] 21:47:00 Test Item Value Reference Range Interpretation Comments POC-GLUCOSE METER 184 mg/dL 70-110 H TESTED AT [facility] 67 ([facility]) (test code = [facility] [employer] [facility] 1538) [address] POCT-GLUCOSE [id number] 17:15:00 Test Item Value Reference Range Interpretation Comments POC-GLUCOSE METER 120 mg/dL 70-110 H TESTED AT [place] [address] ([facility]) (test code = [facility] [employer] [facility] 1538) [address] POCT-GLUCOSE [id number] 12:00:00 Test Item Value Reference Range Interpretation Comments POC-GLUCOSE METER 226 mg/dL 70-110 H TESTED AT [place] [address] ([facility]) (test code = [employer] [place] [employer] [facility] 1538) [address] POCT-GLUCOSE [id number] 07:45:00 Test Item Value Reference Range Interpretation Comments POC-GLUCOSE METER 192 mg/dL 70-110 H TESTED AT [place] [address] ([facility]) (test code = [employer] [place] [employer] [facility] 1538) [address] RAD, CHEST, 1 VIEW, NON [id number] 07:45:00Reason for exam:->SOBShould this be performed at [...] Alejo Verified Date/Time: 08/05/2018 07:45:53 Reading Location: [facility] C013V Neuro Reading Room [id number] 06:25:00 Test Item Value Reference Range Interpretation Comments MAGNESIUM (BEAKER) (test code = 1.8 mg/dL 1.6-2.6 627) BASIC METABOLIC [id number] 06:25:00 Test Item Value Reference Range Interpretation [...] PATIEN TS. CBC W/PLT COUNT & AUTO [id number] 05:59:00 Test Item Value Reference Range Interpretation [...] PERCENT (BEAKER) (test code = 2801) POCT-GLUCOSE [id number] 22:07:00 Test Item Value Reference Range Interpretation Comments POC-GLUCOSE METER 183 mg/dL 70-110 H TESTED AT [facility] 6720 (BEAKER) (test code = JODY [place] 1538) [address] POCT-GLUCOSE [id number] 18:23:00 Test Item Value Reference Range Interpretation Comments POC-GLUCOSE METER 174 mg/dL 70-110 H TESTED AT [facility] 6720 (BEAKER) (test code = JODY [place] 1538) [address] C. DIFFICILE GDH [id number] 15:36:00 Test Item Value Reference Range Interpretation Comments CDT TOXIN (test code Negative Negative = [id number]) CDT GDH ANTIGEN Positive Negative A C. difficile present but (test code = toxin not detec elva. [id number]) Indicates colon ization with non-toxige alexis strain or level of tox in below detectable leve ls. No need for enteri c isolation. Sandoval atment is rarely needed ( only when strong clinical suspicion for Clostridium difficile infection) Testing performed by [email or web address] Rapid Cassette Assay. For GDH, published sensitivity of the assay is 98.7% compared to cytotoxicity testing. For Toxin AB, published sensitivity is 87.8% and specificity 99.4% compared to cytotoxicity testing.Verification of kit performance was done by the [facility] Microbiology Lab prior to clinical use.URINALYSIS W/ REFLEX URINE [id number] 15:18:00 Test Item Value Reference Range Interpretation [...] 514) SOURCE(BEAKER) (test code = 2795) POCT-GLUCOSE [id number] 13:03:00 Test Item Value Reference Range Interpretation Comments POC-GLUCOSE METER 213 mg/dL 70-110 H TESTED AT [facility] 6720 (BEAKER) (test code = JODY Gipson [facility] 1538) [address] OCCULT BLOOD, [id number] 11:58:00 Test Item Value Reference Range Interpretation Comments FECAL OCCULT BLOOD (BEAKER) (test Positive Negative A code = 618) POCT-GLUCOSE [id number] 08:00:00 Test Item Value Reference Range Interpretation Comments POC-GLUCOSE METER 127 mg/dL 70-110 H TESTED AT [facility] 6720 (BEAKER) (test code = [facility] 1538) [address] TROPONIN [id number] 07:07:00 Test Item Value Reference Range Interpretation [...] and persistent tachyarrhythmia.RAD, CHEST, 1 VIEW, NON [id number] 07:00:00Reason for exam:->SOBShould this be performed at [...] [place]ACHeport Verified Date/Time: 08/04/2018 07:00:06 Reading Location: [facility] C0[employer] Neuro Reading Room COMPREHENSIVE METABOLIC [id number] 06:56:00 Test Item Value Reference Range Interpretation [...] S NOT APPLICABLE FOR DIALYSIS PATIEN TS. [id number] 06:55:00 Test Item Value Reference Range Interpretation Comments PHOSPHORUS (BEAKER) (test code = 2.8 mg/dL 2.3-4.7 604) [id number] 06:55:00 Test Item Value Reference Range Interpretation Comments MAGNESIUM (BEAKER) (test code = 1.9 mg/dL 1.6-2.6 627) CBC W/PLT COUNT & AUTO [id number] 06:12:00 Test Item Value Reference Range Interpretation [...] EOSINOPHILS ABSOLUTE COUNT 0.07 K/ L 0.04-0.36 ([facility]) (test code = 416) BASOPHILS ABSOLUTE COUNT ([facility]) 0.02 K/ L 0.01-0.08 (test code = 417) IMMATURE GRANULOCYTES-RELATIVE 1 % 0-1 PERCENT ([facility]) (test code = 2801) CALCIUM, [id number] 05:58:00 Test Item Value Reference Range Interpretation Comments CALCIUM IONIZED ([facility]) (test 1.11 mmol/L 1.12-1.27 L code = 698) PH, BLOOD ([facility]) (test code = 7.38 1810) POCT-GLUCOSE [id number] 22:08:00 Test Item Value Reference Range Interpretation Comments POC-GLUCOSE METER 163 mg/dL 70-110 H TESTED AT [place] [address] ([facility]) (test code = JODY Gipson [facility] 1538) [address] POCT-GLUCOSE [id number] 18:05:00 Test Item Value Reference Range Interpretation Comments POC-GLUCOSE METER 215 mg/dL 70-110 H TESTED AT [place] [address] ([facility]) (test code = [facility] Brandan [facility] 1538) [address] POCT-GLUCOSE [id number] 12:33:00 Test Item Value Reference Range Interpretation Comments POC-GLUCOSE METER 287 mg/dL 70-110 H TESTED AT [place] [address] ([facility]) (test code = JODY Gipson [facility] 1538) [address] TROPONIN [id number] 10:28:00 Test Item Value Reference Range Interpretation Comments TROPONIN I ([facility]) (test code = 56.87 ng/mL 0.00-0.03 [facility]) Troponin I (TnI) levels must be interpreted [...] = 380) RAD, CHEST, 1 VIEW, NON [id number] 08:51:00Reason for exam:->SOBShould this be performed at [...] MDReport Verified Date/Time: 08/03/2018 08:51:22 Reading Location: [facility] Radiology Reading Room [id number] 03:08:00 Test Item Value Reference Range Interpretation Comments FERRITIN (BEAKER) (test code = 361) 207 ng/mL 5-275 VITAMIN B12 AND [id number] 03:08:00 Test Item Value Reference Range Interpretation Comments VITAMIN B12 (BEAKER) (test code = 212 pg/mL 213-816 L 774) FOLATE (BEAKER) (test code = 362) 15.1 ng/mL >=7.0 COMPREHENSIVE METABOLIC [id number] 02:38:00 Test Item Value Reference Range Interpretation [...] S NOT APPLICABLE FOR DIALYSIS PATIEN TS. [id number] 02:34:00 Test Item Value Reference Range Interpretation Comments PHOSPHORUS (BEAKER) (test code = 4.7 mg/dL 2.3-4.7 604) [id number] 02:34:00 Test Item Value Reference Range Interpretation [...] 20-55 L (test code = 2590) CALCIUM, [id number] 02:26:00 Test Item Value Reference Range Interpretation Comments CALCIUM IONIZED (BEAKER) (test 1.12 mmol/L 1.12-1.27 code = 698) PH, BLOOD (BEAKER) (test code = 7.27 1810) CBC W/PLT COUNT & AUTO [id number] 02:20:00 Test Item Value Reference Range Interpretation [...] ABSOLUTE COUNT 0.01 K/ L 0.04-0.36 L ([facility]) (test code = 416) BASOPHILS ABSOLUTE COUNT ([facility]) 0.03 K/ L 0.01-0.08 (test code = 417) IMMATURE GRANULOCYTES-RELATIVE 1 % 0-1 PERCENT ([facility]) (test code = 2801) RETICULOCYTE [id number] 02:16:00 Test Item Value Reference Range Interpretation Comments RETICULOCYTE COUNT PCT ([facility]) (test 2.7 % 0.5-1.7 H code = 575) POCT-GLUCOSE [id number] 01:12:00 Test Item Value Reference Range Interpretation Comments POC-GLUCOSE METER 239 mg/dL 70-110 H TESTED AT [facility] 67 ([facility]) (test code = JODY Gipson [place] 1538) [address] POCT-GLUCOSE [id number] 20:38:00 Test Item Value Reference Range Interpretation Comments POC-GLUCOSE METER 207 mg/dL 70-110 H TESTED AT [place] [address] ([facility]) (test code = JODY [place]ip[place] 1538) [address] POCT-GLUCOSE [id number] 16:39:00 Test Item Value Reference Range Interpretation Comments POC-GLUCOSE METER 216 mg/dL 70-110 H TESTED AT [place] [address] ([facility]) (test code = JODY [place]ip[place] 1538) [address] [id number] 12:20:00 Test Item Value Reference Range Interpretation Comments PARTIAL THROMBOPLASTIN TIME 36.6 seconds 22.5-36.0 H ([facility]) (test code = 760) 4 hours after the start of continuous infusion and 4 hours after any rate change POCT-GLUCOSE [id number] 12:03:00 Test Item Value Reference Range Interpretation Comments POC-GLUCOSE METER 206 mg/dL 70-110 H TESTED AT [facility] 6720 ([facility]) (test code = JODY [place] 1538) [address] POCT-GLUCOSE [id number] 12:03:00 Test Item Value Reference Range Interpretation Comments POC-GLUCOSE METER 193 mg/dL 70-110 H TESTED AT [facility] 67 ([facility]) (test code = JODY [place]ip[place] 1538) [address] POCT-GLUCOSE [id number] 12:02:00 Test Item Value Reference Range Interpretation Comments POC-GLUCOSE METER 234 mg/dL 70-110 H TESTED AT [facility] 67 ([facility]) (test code = JODY Gipson [place] 1538) [address] POCT-GLUCOSE [id number] 12:02:00 Test Item Value Reference Range Interpretation Comments POC-GLUCOSE METER 211 mg/dL 70-110 H TESTED AT [facility] 6720 ([facility]) (test code = JODY Gipson [place] 1538) [address] U/S, RENAL, [id number] 08:45:00Reason for exam:->CKDFINAL REPORT TECHNIQUE: Grayscale ultrasound [...] may be obtained for further evaluation. Signed: oRb Navarro MDReport Verified Date/Time: 08/02/2018 08:45:50 Reading Location: [address] Radiology Reading Room Electronically signedby: ROB NAVARRO MD on 08/02/2018 08:45 AMPOCT-GLUCOSE [id number] 08:25:00 Test Item Value Reference Range Interpretation Comments POC-GLUCOSE METER 237 mg/dL 70-110 H TESTED AT [facility] 67 ([facility]) (test code = JODY Gipson [facility] 1538) [address] [id number] 08:19:00 Test Item Value Reference Range Interpretation Comments PARTIAL THROMBOPLASTIN TIME 38.2 seconds 22.5-36.0 H (BEAKER) (test code = 760) 4 hours after the start of continuous infusion and 4 hours after any rate change POCT-GLUCOSE [id number] 07:14:00 Test Item Value Reference Range Interpretation Comments POC-GLUCOSE METER 246 mg/dL 70-110 H TESTED AT [facility] 6720 ([facility]) (test code = JODY Gipson [place] 1538) [address] COMPREHENSIVE METABOLIC [id number] 04:58:00 Test Item Value Reference Range Interpretation [...] I S NOT APPLICABLE FOR DIALYSIS PATIEN [id number] 04:52:00 Test Item Value Reference Range Interpretation Comments PARTIAL THROMBOPLASTIN TIME 37.5 seconds 22.5-36.0 H (BEAKER) (test code = 760) 4 hours after the start of continuous infusion and 4 hours after any rate change RAD, CHEST, 1 VIEW, NON [id number] 04:44:00Reason for exam:->impella positionShould this be performed [...] 0-100 H (BEAKER) (test code = 700) [id number] 04:40:00 Test Item Value Reference Range Interpretation Comments MAGNESIUM (BEAKER) 2.0 mg/dL 1.6-2.6 Specimen slightly (test code = 627) hemolyzed [id number] 04:40:00 Test Item Value Reference Range Interpretation Comments PHOSPHORUS (BEAKER) 4.7 mg/dL 2.3-4.7 Specimen slightly (test code = 604) hemolyzed URIC [id number] 04:40:00 Test Item Value Reference Range Interpretation Comments URIC ACID (BEAKER) 9.1 mg/dL 2.6-7.2 H Specimen slightly (test code = 773) hemolyzed LACTIC ACID, [id number] 04:31:00 Test Item Value Reference Range Interpretation Comments LACTATE BLOOD 0.9 mmol/L 0.5-2.2 Specimen sligh tly ARTERIAL (2) (BEAKER) hemoly zed (test code = 2874) BLOOD GAS, [id number] 04:25:00 Test Item Value Reference Range Interpretation [...] (test code = 1819) 36.0 % GLUCOSE-STAT [id number] 04:25:00 Test Item Value Reference Range Interpretation Comments GLUCOSE RANDOM (BEAKER) (test code 272 mg/dL 70-110 H = 652) HGB/HCT (H&H) - STAT [id number] 04:25:00 Test Item Value Reference Range Interpretation Comments HEMOGLOBIN (BEAKER) (test code = 10.9 g/dL 12.0-15.0 L 410) HEMATOCRIT (BEAKER) (test code = 32.0 % 36.0-45.0 L 411) CBC W/PLT COUNT & AUTO [id number] 04:24:00 Test Item Value Reference Range Interpretation [...] PERCENT (BEAKER) (test code = 2801) CALCIUM, [id number] 04:22:00 Test Item Value Reference Range Interpretation Comments CALCIUM IONIZED (BEAKER) (test 1.20 mmol/L 1.12-1.27 code = 698) PH, BLOOD (BEAKER) (test code = 7.31 1810) SODIUM NA-STAT [id number] 04:21:00 Test Item Value Reference Range Interpretation Comments SODIUM (BEAKER) (test code = 381) 136 meq/L 135-148 POTASSIUM-STAT [id number] 04:21:00 Test Item Value Reference Range Interpretation Comments POTASSIUM (BEAKER) (test code = 4.6 meq/L 3.6-5.5 379) LACTIC ACID, [id number] 00:13:00 Test Item Value Reference Range Interpretation Comments LACTATE BLOOD ARTERIAL (2) 0.7 mmol/L 0.5-2.2 (BEAKER) (test code = 2874) SODIUM NA-STAT [id number] 23:59:00 Test Item Value Reference Range Interpretation Comments SODIUM (BEAKER) (test code = 381) 136 meq/L 135-148 POTASSIUM-STAT [id number] 23:59:00 Test Item Value Reference Range Interpretation Comments POTASSIUM (BEAKER) (test code = 4.8 meq/L 3.6-5.5 379) BLOOD GAS, [id number] 23:59:00 Test Item Value Reference Range Interpretation [...] (test code = 1819) 36.0 % GLUCOSE-STAT [id number] 23:59:00 Test Item Value Reference Range Interpretation Comments GLUCOSE RANDOM (BEAKER) (test code 275 mg/dL 70-110 H = 652) HGB/HCT (H&H) - STAT [id number] 23:59:00 Test Item Value Reference Range Interpretation Comments HEMOGLOBIN (BEAKER) (test code = 11.3 g/dL 12.0-15.0 L 410) HEMATOCRIT (BEAKER) (test code = 33.0 % 36.0-45.0 L 411) [id number] 21:53:00 Test Item Value Reference Range Interpretation Comments PARTIAL THROMBOPLASTIN TIME 63.4 seconds 22.5-36.0 H (BEAKER) (test code = 760) 4 hours after the start of continuous infusion and 4 hours after any rate change COMPREHENSIVE METABOLIC [id number] 19:43:00 Test Item Value Reference Range Interpretation [...] DIALYSIS PATIEN TS. Call k > 5, [id number] 19:41:00 Test Item Value Reference Range Interpretation Comments SODIUM (BEAKER) (test 137 meq/L 136-145 code = 381) POTASSIUM (BEAKER) 4.8 meq/L 3.5-5.1 Specimen slightly (test code = 379) hemolyzed CHLORIDE (BEAKER) 109 meq/L 98-107 H (test code = 382) CO2 (BEAKER) (test 20 meq/L 22-29 L code = 355) Call k > 5, [id number] 19:37:00 Test Item Value Reference Range Interpretation [...] INR is2.5-3.5 for patients wiht mechanical heart valves.[id number] 19:36:00 Test Item Value Reference Range Interpretation Comments FIBRINOGEN LEVEL (BEAKER) (test 336 mg/dl 225-434 code = 658) LACTIC ACID, [id number] 19:34:00 Test Item Value Reference Range Interpretation [...] (BEAKER) (test code = 413) BLOOD GAS, [id number] 19:16:00 Test Item Value Reference Range Interpretation [...] (test code = 1819) 36.0 % GLUCOSE-STAT [id number] 19:16:00 Test Item Value Reference Range Interpretation Comments GLUCOSE RANDOM (BEAKER) (test code 231 mg/dL 70-110 H = 652) HGB/HCT (H&H) - STAT [id number] 19:16:00 Test Item Value Reference Range Interpretation Comments HEMOGLOBIN (BEAKER) (test code = 11.5 g/dL 12.0-15.0 L 410) HEMATOCRIT (BEAKER) (test code = 34.0 % 36.0-45.0 L 411) CALCIUM, [id number] 19:15:00 Test Item Value Reference Range Interpretation Comments CALCIUM IONIZED (BEAKER) (test 1.26 mmol/L 1.12-1.27 code = 698) PH, BLOOD (BEAKER) (test code = 7.35 1810) OXYGEN SATURATION, [id number] 19:14:00 Test Item Value Reference Range Interpretation Comments O2 SATURATION (MEASURED) (BEAKER) 41.9 % (test code = 1455) SODIUM NA-STAT [id number] 19:14:00 Test Item Value Reference Range Interpretation Comments SODIUM (BEAKER) (test code = 381) 138 meq/L 135-148 POTASSIUM-STAT [id number] 19:14:00 Test Item Value Reference Range Interpretation Comments POTASSIUM (BEAKER) (test code = 4.7 meq/L 3.6-5.5 379) [id number] 16:45:00 Test Item Value Reference Range Interpretation Comments ACTIVATED CLOTTING TIME 389 sec TEST ED AT [place] [address] (BEAKER) (test code = JODY [place] [address]) [address] HEMOGLOBIN AND [id number] 16:38:00 Test Item Value Reference Range Interpretation Comments HEMOGLOBIN (BEAKER) (test code = 10.1 GM/DL 11.2-15.7 L 410) HEMATOCRIT (BEAKER) (test code = 31.6 % 34.1-44.9 L 411) PLATELET AGGREGATION: FUNCTION [id number] 16:05:00 Test Item Value Reference Range Interpretation Comments WEAK ADP 34 % 60-91 L RESULT(BEAKER) (test code = 2135) PLATELET FUNCTION 0-39% indicates marked SCREEN INTERP platelet dysfunction (BEAKER) (test code = 2173) [id number] Talia Villarreal MD (BEAKER) (test code = (electronic signature) 0180) PLATELET COUNT AGG 186 K/CU MM 150-450 (BEAKER) (test code = 7136) Platelet Function Screen results may be falsely low with platelet counts<100,000/cu mm.[id number] 15:02:00 Test Item Value Reference Range Interpretation Comments ACTIVATED CLOTTING TIME 411 sec TEST ED AT [place] [address] ([facility]) (test code = JODY [place]ip[place] 441) [address] POCT-GLUCOSE [id number] 12:17:00 Test Item Value Reference Range Interpretation Comments POC-GLUCOSE METER 103 mg/dL 70-110 TESTED AT [place] [address] ([facility]) (test code = [facility] 1538) [id number] POCT-GLUCOSE [id number] 08:18:00 Test Item Value Reference Range Interpretation Comments POC-GLUCOSE METER 388 mg/dL 70-110 H TESTED AT [place] [address] ([facility]) (test code = [facility] 1538) [id number] HEPATIC FUNCTION [id number] 08:09:00 Test Item Value Reference Range Interpretation Comments TOTAL PROTEIN (AKER) 6.2 gm/dL 6.0-8.3 Speci men slightly (test code = 770) hemolyzed ALBUMIN (AKER) (test 3.4 g/dL 3.5-5.0 L Speci men slightly code = 1145) hemolyzed BILIRUBIN TOTAL 0.4 mg/dL 0.2-1.2 Specimen sli ghtly ([facility]) (test code = hemoly zed 377) BILIRUBIN DIRECT 0.1 mg/dL 0.1-0.5 Specimen sl ightly (AKER) (test code = hemoly zed 706) ALKALINE PHOSPHATASE 59 U/L 40-150 (BEAKER) (test code = 346) AST (SGOT) (BEAKER) 19 U/L 5-34 Specimen slightly (test code = 353) hemolyzed ALT (SGPT) (AKER) 10 U/L 6-55 Specimen slightly (test code = 347) hemolyzed TROPONIN [id number] 06:39:00 Test Item Value Reference Range Interpretation Comments TROPONIN I (BEAKER) (test code = 0.26 ng/mL 0.00-0.03 [facility]) Troponin I (TnI) levels must be interpreted [...] acidosis, acute neurological disease, and persistent tachyarrhythmia.POCT-GLUCOSE [id number] 06:36:00 Test Item Value Reference Range Interpretation Comments POC-GLUCOSE METER 415 mg/dL 70-110 HH TESTED AT [facility] 6720 (BEAKER) (test code = [place] 1538) [address] BASIC METABOLIC [id number] 06:10:00 Test Item Value Reference Range Interpretation [...] S NOT APPLICABLE FOR DIALYSIS PATIEN TS. [id number] 06:03:00 Test Item Value Reference Range Interpretation Comments MAGNESIUM (BEAKER) 2.2 mg/dL 1.6-2.6 Specimen slightly (test code = 627) hemolyzed THROMBIN [id number] 05:09:00 Test Item Value Reference Range Interpretation Comments THROMBIN TIME (BEAKER) (test code = 64.9 secs 13.8-20.0 H 550) Draw baseline aPTT prior to [id number] 05:08:00 Test Item Value Reference Range Interpretation Comments PARTIAL THROMBOPLASTIN TIME 43.1 seconds 22.5-36.0 H (BEAKER) (test code = 760) Draw baseline aPTT prior to infusionPROTHROMBIN TIME/[id number] 05:07:00 Test Item Value Reference Range Interpretation [...] to infusion CBC W/PLT COUNT & AUTO [id number] 04:59:00 Test Item Value Reference Range Interpretation [...] = 2801) RAD, CHEST, 1 VIEW, NON [id number] 04:33:00Reason for exam:->preopShould this be performed at the bedside?->YesFINAL REPORT RAD, CHEST, 1 VIEW, NON DEPT INDICATION: preop COMPARISON: Prior day's exam FINDINGS: Portable frontal view of the chest. IMPRESSION: Support Lines: Stable. Lungs and pleura: Unchanged airspace and pleural opacities. No pneumothorax.Heart and mediastinum: Stable contours. Additional findings: None. Signed: [facility] Verified Date/Time: 08/01/2018 04:33:15 RAD, CHEST, 1 VIEW, NON [id number] 00:02:00Reason for exam:->Intraaortic balloon pump insertionShould this [...] of the cervical spine. Signed: Socorro Méndez [facility] Verified Date/Time: 08/01/2018 00:02:19 Electronically signed by: SOCORRO MÉNDEZ MD on08/01/2018 12:02 AMTSH/FREE T4 IF [id number] 21:34:00 Test Item Value Reference Range Interpretation Comments THYROID STIMULATING HORMONE 0.99 uIU/mL 0.35-4.94 (BEAKER) (test code = 772) TROPONIN [id number] 21:26:00 Test Item Value Reference Range Interpretation [...] = 700) RAD, CHEST, 1 VIEW, NON [id number] 21:20:00Reason for exam:->unstable anginaShould this be performed [...] MDReport Verified Date/Time: 07/31/2018 21:20:52 Reading Location: [address] Consult Reading Room [facility]OL[facility] [id number] 21:18:00 Test Item Value Reference Range Interpretation [...] APPLICABLE FOR DIALYSIS PATIEN TS. HEPATIC FUNCTION [id number] 21:15:00 Test Item Value Reference Range Interpretation [...] (test code = 10 U/L 6-55 347) [id number] 20:57:00 Test Item Value Reference Range Interpretation Comments PARTIAL THROMBOPLASTIN TIME 27.7 seconds 22.5-36.0 (BEAKER) (test code = 760) PROTHROMBIN TIME/[id number] 20:56:00 Test Item Value Reference Range Interpretation [...] mechanical heart valves.CBC W/PLT COUNT & AUTO [id number] 20:50:00 Test Item Value Reference Range Interpretation [...] 0-1 PERCENT (BEAKER) (test code = 2801) [id number] 19:45:00 Test Item Value Reference Range Interpretation [...] as d efined by WHO. COMPREHENSIVE METABOLIC [id number] 16:08:00 Test Item Value Reference Range Interpretation [...] code = ALKP) - XR CHEST 1 [id number] 15:43:00 FAX: Rhett Jo [phone] Camps: ER St: REG Name: ARECHIGAHENRIQUE [facility] : 1940 Age/S: 78/F [address] Unit #: [id number] Loc: VR.DIMAS [place], [place] [address] Phys: Rhett Sams MD Acct: [id number] Dis Date: Status: REG ER PHONE #: [phone] Exam Date: 07/28/2018 1527 FAX #: [phone] Reason: CP EXAMS: CPT CODE: [id number] XR CHEST 1 V 30117 Examination: Chest 1 view Location code: S17 Comparison: None Discussion: Clinical history is remarkable for chest tightness. Cardiac silhouette is slightly enlarged, atherosclerotic change present. There are coarsened interstitial changes present bilaterally, mild bilateral parenchymal basilar scarring noted. Impression: 1. Coarsened interstitial changes with likely bilateral basilar parenchymal scarring. at 3390 Reported and signed by: YUAN BUNN M.D. CC: Rhett Sams MDTechnologist: HESHAM FONG RT,(R) ARRT Transcribed Date/Time/By: 07/28/2018 (6598) :[id number] Orig Print D/T: S: 07/28/2018 (9024) Automated exposure control, iterative reconstruction technique, and/oradjustment of mA and/or kV according to patient's size was utilizedfor optimum radiation dose reduction. PAGE 1 Signed Report TROPONIN I [id number] 15:37:00 Test Item Value Reference Range Interpretation Comments TROPONIN I RAPID 0.03 NG/ML 0.00-0.08 N 0.00 - 0.08 (test code = Normal0.09 - 0. 40 TROPIRAP) Indeterminate f or AMI 0.41 and above Compatible with AMI CHEMISTRY 8 [id number] 15:36:00 Test Item Value Reference Range Interpretation [...] 2.6 MG/DL 0.6-1.0 H CREATBED) CBC W/AUTO [id number] 15:34:00 Test Item Value Reference Range Interpretation [...]
--- OUTSIDE RECORDS SUMMARY | 2019-10-18 17:55 | XMS REPORT ---
[...] Problem Coronary artery disease involving I25.110 Active sw[place] coronary artery of sw[place] heart with unstable angina pectoris Problem History of cholecystectomy Z90.49 A ctive Problem Stented coronary artery Z95.5 Acti ve Problem 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 Ac tive classified elsewhere Problem Chronic kidney disease, stage 4 N18.4 Active (severe) Problem At risk for falling Z91.81 Active Problem Atherosclerosis of [place] coronary I25.10 Active artery Problem Cervical stenosis of spine M48.02 A ctive Problem Type 2 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 Problem Hypertensive heart disease without I11.9 Active heart failure Problem 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
--- OUTSIDE RECORDS SUMMARY | 2019-10-18 17:55 | XMS REPORT ---
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
--- OUTSIDE RECORDS SUMMARY | 2019-10-18 17:55 | XMS REPORT ---
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
[2019-10-18 18:55] LABS: Absolute Lymphocytes (CBC) 0.7 K/uL (0.7-4.9); Basophils % 0.7 % (0-1.3); Hematocrit 34.2 % (36.0-45.0); Lymphocytes % 7.2 % (15.3-44.8); MPV 8.9 fL (7.6-11.3)
[2019-10-18 19:12] LABS: Potassium 3.9 mmol/L (3.5-5.1)
[2019-10-18] MEDS ORDERED: ACETAMINOPHEN 500 MG TAB ONE (19:36)
--- NOTE | 2019-10-18 19:52 | RAD REPORT ---
EXAM DESCRIPTION: CT - Stone Protocol - 10/18/2019 7:33 pm CLINICAL HISTORY: Flank pain. ABD PAIN COMPARISON: CT ABDOMEN PELVIS WO CONTRAST dated 01/29/2015 TECHNIQUE: Axial images were obtained without oral or IV contrast. Lack of contrast limits solid org an and vascular assessment. The [id number] spans the entirety of the system partially obscuring uppermost abdomen and lung bases. Coronal reformatted images were obtained and reviewed. All CT scans are performed using dose optimization technique as appropriate and may include automated exposure control or mA/KV adjustment according to patient size. FINDINGS: Trace left pleural effusion is present. Imaged portions of the liver and spleen show no suspicious findings on non-contrast imaging.Cholecyst ectomy clips. The pancreas and adrenal glands are normal. No pathologic lymphadenopathy in the abdome n or pelvis. No urinary tract stones or obstructive uropathy. Prominent vascular calcifications are evident. Urina ry bladder appears somewhat irregular shape with wall thickening. No bowel obstruction, free air, free fluid or abscess. The appendix is not identified as a discrete s tructure, however, no secondary findings of appendicitis are identified. Small fat containing right i nguinal hernia. Moderate lumbosacral degenerative changes. IMPRESSION: No urinary tract stones or obstructive uropathy. Irregular and thickened urinary bladder noted which may indicate cystitis.
[2019-10-18 20:32] LABS: Urine Blood 2+ (NEG); Urine Glucose 2+ (NEG); Urine Protein 3+ (NEG); Urine Specific Gravity 1.025 (1.005-1.030); Urine pH 5.5 (5.0-7.0)
[2019-10-18] MEDS ORDERED: CEFTRIAXONE/SWI 1gm 1 GM/10 ML SYR ONE (20:34)
[2019-10-18 20:39] LABS: Urine Bacteria >50 /HPF (<20); Urine Culture Reflex Order NOT NEEDED; Urine RBC 20-50 /HPF (NONE SEEN)
--- NOTE | 2019-10-18 20:45 | EDPHYS ---
Physician Documentation [facility] Name: Suzan Gonzalez Age: 79 yrs Sex: Female : 1940 Arrival Date: 10/18/2019 Time: 17:45 Bed 15 Private MD: John Perry ED Physician Suraj Barkley HPI: 10/17 22:02 This 79 yrs old Female presents to ER via Ambulatory with complaints of kb Urinary Problem. 22:02 The patient presents with urinary symptoms, dysuria, frequency, urgency. Onset: The kb symptoms/episode began/occurred 1 month(s) ago. Modifying factors: The symptoms are alleviated by nothing, the symptoms are aggravated by pressure, urinating. Associated signs and symptoms: Pertinent positives: dysuria, fever, urinary frequency, Pertinent negatives: constipation, cramping, diarrhea, dyspareunia, hematuria, nausea, vaginal bleeding, vaginal discharge, vomiting. Severity of symptoms: At their worst the symptoms were moderate, in the emergency department the symptoms are unchanged. The patient has not experienced similar symptoms in the past. The patient has been recently seen by a physician:. Pt reports suprapubic pain, dysuria, frequency, urgency and small amounts for one month. Has completed 3 courses of antibiotics over the last month with no relief. Was told to come to the ER today while at dialysis to get reevaluated for possible admission for IV antibiotics. Historical: - Allergies: 17:51 "every pain narcotic"; aa5 17:51 Bactrim; aa5 17:51 Benadryl; aa5 17:51 Iodine; aa5 17:51 Levaquin; aa5 17:51 Levofloxacin; aa5 17:51 Morphine; aa5 17:51 Sulfa (Sulfonamide Antibiotics); aa5 17:51 Codeine (Vomiting); aa5 - Home Meds: 17:51 aspirin 81 mg Oral chew 1 tab once daily [Active]; atorvastatin 80 mg Oral tab 1 tab aa5 once daily [Active]; BRILINTA 90 mg Oral tab 1 tab 2 times per day [Active]; bumetanide 1 mg Oral tab 1 tab 2 times per day [Active]; calcitriol 0.5 mcg Oral cap 1 cap once daily [Active]; folic acid 1 mg Oral tab 1 tab once daily [Active]; metoprolol tartrate 100 mg Oral tab 1 tab 2 times per day [Active]; nitroglycerin 0.4 mg SL subl 1 tab every 5 minutes [Active]; Probiotic Oral daily [Active]; Ranexa 500 mg Oral Tb12 1 tab 2 times per day [Active]; Tradjenta 5 mg Oral tab 1 tab once daily [Active]; Tresiba FlexTouch U-100 100 unit/mL (3 mL) subcutaneous inpn daily [Active]; - PMHx: 17:51 Diabetes - NIDDM; Dialysis; kidney problems; aa5 - PSHx: 17:51 Angioplasty; aa5 - Immunization history:: Adult Immunizations unknown. - Social history:: Smoking status: Patient denies any tobacco usage or history of. ROS: 22:01 Constitutional: Negative for fever, chills, and weight loss, Cardiovascular: Negative kb for chest pain, palpitations, and edema, Respiratory: Negative for shortness of breath, cough, wheezing, and pleuritic chest pain, Back: Negative for injury and pain, MS/Extremity: Negative for injury and deformity, Skin: Negative for injury, rash, and discoloration, Neuro: Negative for headache, weakness, numbness, tingling, and seizure. 22:01 Abdomen/GI: Positive for abdominal pain, Negative for nausea, vomiting, and diarrhea, constipation. 22:01 : Positive for urinary symptoms, urinary frequency, small amounts, burning with urination. Exam: 22:01 Constitutional: This is a well developed, well nourished patient who is awake, alert, kb and in no acute distress. Head/Face: Normocephalic, atraumatic. Chest/axilla: Normal chest wall appearance and motion. Nontender with no deformity. No lesions are appreciated. Cardiovascular: Regular rate and rhythm with a normal S1 and S2. No gallops, murmurs, or rubs. Normal PMI, no JVD. No pulse deficits. Respiratory: Lungs have equal breath sounds bilaterally, clear to auscultation and percussion. No rales, rhonchi or wheezes noted. No increased work of breathing, no retractions or nasal flaring. Back: No spinal tenderness. No costovertebral tenderness. Full range of motion. Skin: Warm, dry with normal turgor. Normal color with no rashes, no lesions, and no evidence of cellulitis. MS/ Extremity: Pulses equal, no cyanosis. Neurovascular intact. Full, normal range of motion. Neuro: Awake and alert, GCS 15, oriented to person, place, time, and situation. Cranial nerves II-XII grossly intact. Motor strength 5/5 in all extremities. Sensory grossly intact. Cerebellar exam normal. Normal gait. 22:01 Abdomen/GI: Inspection: abdomen appears normal, Bowel sounds: normal, in all quadrants, Palpation: soft, in all quadrants, moderate abdominal tenderness, in the suprapubic area. Vital Signs: 17:50 BP 113 / 44; Pulse 106; Resp 18 S; Temp 99.6(O); Pulse Ox 97% on R/A; aa5 19:00 BP 107 / 48; Pulse 105; Resp 16; Pulse Ox 99% on R/A; jb4 20:00 BP 124 / 68; Pulse 110; Resp 16; Pulse Ox 98% on R/A; jb4 20:15 Pain 7/10; jb4 20:45 BP 129 / 62; Pulse 99; Resp 16; Pulse Ox 95% on R/A; jb4 21:30 BP 168 / 93; Pulse 97; Resp 16; Pulse Ox 97% on R/A; jb4 22:15 BP 110 / 59; Pulse 93; Resp 16; Pulse Ox 97% on R/A; jb4 23:00 BP 111 / 56; Pulse 93; Resp 16; Pulse Ox 95% on R/A; jb4 MDM: 17:51 Patient medically screened. kb 20:42 Data reviewed: vital signs, nurses notes. Data interpreted: Pulse oximetry: on room air.kb 20:55 Counseling: I had a detailed discussion with the patient and/or guardian regarding: the kb historical points, exam findings, and any diagnostic results supporting the discharge/admit diagnosis, lab results, radiology results, the need for further work-up and treatment in the hospital. Physician consultation: Hakan King DO was contacted at 20:55, regarding consult, patient's condition, and will see patient in inpatient room, tomorrow. 20:55 Physician consultation: Gualberto SAHU was called at 20:45, regarding admission, kb to the medical/surgical unit. patient's condition, and will see patient in ED, shortly. 10/17 18:15 Order name: Urine Culture kb 10/17 18:15 Order name: Urine Microscopic Only; Complete Time: 20:39 kb 10/17 18:15 Order name: CBC with Diff; Complete Time: 19:15 kb 10/17 18:15 Order name: Basic Metabolic Panel; Complete Time: 19:15 kb 10/17 18:15 Order name: Blood Culture Adult (2) kb 10/17 18:15 Order name: Lactate; Complete Time: 19:18 kb 10/17 18:15 Order name: Urine Dipstick-Ancillary (obtain specimen); Complete Time: 20:35 kb 10/17 18:15 Order name: Procalcitonin; Complete Time: 19:57 kb 10/17 19:19 Order name: CT Stone Protocol; Complete Time: 19:57 kb 10/17 20:04 Order name: Urine Dipstick--Ancillary (enter results); Complete Time: 20:37 tt3 10/17 20:58 Order name: CONS Physician Consult [facility] 10/17 18:15 Order name: IV Start; Complete Time: 19:00 kb Administered Medications: 19:27 Drug: Tylenol 1000 mg Route: PO; jb4 20:28 Follow up: Response: No adverse reaction; Pain is decreased jb4 20:28 Drug: Rocephin 1 grams Route: IV; Rate: calculated rate; Site: right forearm; jb4 20:30 Follow up: Response: No adverse reaction; IV Status: Completed infusion; IV Intake: [id number] 21:45 Drug: Meropenem 1 grams Route: IV; Rate: calculated rate; Site: right forearm; jb4 22:15 Follow up: Response: No adverse reaction; IV Status: Completed infusion; IV Intake: jb4 100ml Disposition: 10/18/19 20:44 Hospitalization ordered by Wan Phan for Inpatient Admission. Preliminary diagnosis are Cystitis, Urinary tract infection, site not specified - failed outpatient treatment. - Bed requested for Telemetry/MedSurg (Inpatient). - Status is Inpatient Admission. jb4 - Condition is Stable. - Problem is an ongoing problem. - Symptoms are unchanged. Addendum: 10/20/2019 08:50 Co-signature as Attending Physician, Suraj Barkley MD I agree with the assessment and k dr plan of care. Signatures: Dispatcher [employer] EDKS Reva Ramírez, MAINTENANCE PORTER-C MAINTENANCE PORTER-Ckb Suraj Barkley MD MD [facility] Simi Cedillo, RN RN bb Soledad Goodman, RN RN aa5 Roland Hardy RN RN jb4 Corrections: (The following items were deleted from the chart) 10/17 22:31 20:44 Hospitalization Ordered by Wan Phan MD for Inpatient Admission. Preliminary bb diagnosis is Cystitis; Urinary tract infection, site not specified - failed outpatient treatment. Bed requested for Telemetry/MedSurg (Inpatient). Status is Inpatient Admission. Condition is Stable. Problem is an ongoing problem. Symptoms are unchanged. kb 23:58 22:31 10/18/2019 20:44 Hospitalization Ordered by Wan Phan MD for Inpatient jb4 Admission. Preliminary diagnosis is Cystitis; Urinary tract infection, site not specified - failed outpatient treatment. Bed requested for Telemetry/MedSurg (Inpatient). Status is Inpatient Admission. Condition is Stable. Problem is an ongoing problem. Symptoms are unchanged. bb
--- NOTE | 2019-10-18 20:45 | ER ---
Nurse's Notes [facility] Name: Suzan Gonzalez Age: 79 yrs Sex: Female : 1940 Arrival Date: 10/18/2019 Time: 17:45 Bed 15 Private MD: John Perry Diagnosis: Cystitis;Urinary tract infection, site not specified-failed outpatient treatment Presentation: 10/17 17:50 Chief complaint: Pt's daughter states "she's had a UTI for a month and Dr. Fernando taylor wants her admitted for IV antibiotics". Pt c/o suprapubic pressure. Pt's daughter reports pt has Tylenol #3 for pain but is making her vomit. Pt's daughter reports last dialysis was today. Coronavirus screen: Client denies travel out of the [place] in the last 14 days. At this time, the client does not indicate any symptoms associated with coronavirus-19. Ebola Screen: Patient negative for fever greater than or equal to 101.5 degrees Fahrenheit, and additional compatible Ebola Virus Disease symptoms. Initial Sepsis Screen: Does the patient meet any 2 criteria? No. Patient's initial sepsis screen is negative. Does the patient have a suspected source of infection? No. Patient's initial sepsis screen is negative. Risk Assessment: Do you want to hurt yourself or someone else? Patient reports no desire to harm self or others. Onset of symptoms was September 2019. 17:50 Acuity: SERGIO 3 aa5 17:50 Method Of Arrival: Ambulatory aa5 Historical: - Allergies: 17:51 "every pain narcotic"; aa5 17:51 Bactrim; aa5 17:51 Benadryl; aa5 17:51 Iodine; aa5 17:51 Levaquin; aa5 17:51 Levofloxacin; aa5 17:51 Morphine; aa5 17:51 Sulfa (Sulfonamide Antibiotics); aa5 17:51 Codeine (Vomiting); aa5 - Home Meds: 17:51 aspirin 81 mg Oral chew 1 tab once daily [Active]; atorvastatin 80 mg Oral tab 1 tab aa5 once daily [Active]; BRILINTA 90 mg Oral tab 1 tab 2 times per day [Active]; bumetanide 1 mg Oral tab 1 tab 2 times per day [Active]; calcitriol 0.5 mcg Oral cap 1 cap once daily [Active]; folic acid 1 mg Oral tab 1 tab once daily [Active]; metoprolol tartrate 100 mg Oral tab 1 tab 2 times per day [Active]; nitroglycerin 0.4 mg SL subl 1 tab every 5 minutes [Active]; Probiotic Oral daily [Active]; Ranexa 500 mg Oral Tb12 1 tab 2 times per day [Active]; Tradjenta 5 mg Oral tab 1 tab once daily [Active]; Tresiba FlexTouch U-100 100 unit/mL (3 mL) subcutaneous inpn daily [Active]; - PMHx: 17:51 Diabetes - NIDDM; Dialysis; kidney problems; aa5 - PSHx: 17:51 Angioplasty; aa5 - Immunization history:: Adult Immunizations unknown. - Social history:: Smoking status: Patient denies any tobacco usage or history of. Screenin:58 Abuse screen: Denies threats or abuse. Denies injuries from another. Nutritional sv screening: No deficits noted. Tuberculosis screening: No symptoms or risk factors identified. Fall Risk None identified. Assessment: 18:35 General: Appears in no apparent distress. uncomfortable, well developed, Behavior is sv calm, cooperative, appropriate for age. Pain: Complains of pain in suprapubic area Pain currently is 6 out of 10 on a pain scale. Pain began about a month Is continuous. Neuro: Level of Consciousness is awake, alert, obeys commands, Oriented to person, place, time, situation, Moves all extremities. Full function Gait is steady, Speech is normal. Respiratory: Airway is patent Respiratory effort is even, unlabored, Respiratory pattern is regular, symmetrical. : Reports burning with urination, urgency. Derm: Skin is pink, warm \\T\\ dry. 19:15 Reassessment: Patient and/or family updated on plan of care and expected duration. Pain jb4 level reassessed. Patient is alert, oriented x 3, equal unlabored respirations, skin warm/dry/pink. PT reports pain is 8/10 and is requesting extra strength tylenol, provider notified, see MAR for orders. 20:30 Reassessment: Patient appears in no apparent distress at this time. Patient and/or jb4 family updated on plan of care and expected duration. Pain level reassessed. Patient is alert, oriented x 3, equal unlabored respirations, skin warm/dry/pink. PT reports pain is decreased to 7/10. When asked if she would like something else for pain, pt refused reporting she is comfortable. Patient states feeling better. 21:30 Reassessment: Patient appears in no apparent distress at this time. Patient and/or jb4 family updated on plan of care and expected duration. Pain level reassessed. Patient is alert, oriented x 3, equal unlabored respirations, skin warm/dry/pink. PT given a sandwich per request, Hospitalist gave verbal consent to let patient eat. 22:30 Reassessment: Patient appears in no apparent distress at this time. Patient and/or jb4 family updated on plan of care and expected duration. Pain level reassessed. Patient is alert, oriented x 3, equal unlabored respirations, skin warm/dry/pink. 23:36 Reassessment: Patient appears in no apparent distress at this time. Patient and/or jb4 family updated on plan of care and expected duration. Pain level reassessed. Patient is alert, oriented x 3, equal unlabored respirations, skin warm/dry/pink. Report given to SOLITARIO Gramajo. Vital Signs: 17:50 BP 113 / 44; Pulse 106; Resp 18 S; Temp 99.6(O); Pulse Ox 97% on R/A; aa5 19:00 BP 107 / 48; Pulse 105; Resp 16; Pulse Ox 99% on R/A; jb4 20:00 BP 124 / 68; Pulse 110; Resp 16; Pulse Ox 98% on R/A; jb4 20:15 Pain 7/10; jb4 20:45 BP 129 / 62; Pulse 99; Resp 16; Pulse Ox 95% on R/A; jb4 21:30 BP 168 / 93; Pulse 97; Resp 16; Pulse Ox 97% on R/A; jb4 22:15 BP 110 / 59; Pulse 93; Resp 16; Pulse Ox 97% on R/A; jb4 23:00 BP 111 / 56; Pulse 93; Resp 16; Pulse Ox 95% on R/A; jb4 ED Course: 17:45 Patient arrived in ED. mr 17:45 John Perry DO is Private Physician. mr 17:50 Reva Ram[facility]rez [facility]C [facility]. kb 17:50 Suraj Barkley MD is Attending Physician. kb 17:50 Arm band placed on. aa5 17:51 Triage completed. aa5 17:56 Nat Murphy, RN is Primary Nurse. sv 17:58 Patient has correct armband on for positive identification. Bed in low position. Call sv light in reach. Side rails up X2. Door closed. Head of bed elevated. 18:35 First set of blood cultures drawn by me. Inserted saline lock: 20 gauge in right sv forearm, using aseptic technique. Blood collected. Flushed right forearm with 5 ml normal saline. 18:45 Second set of blood cultures drawn by me. sv 19:09 Report given to Raul JEREZ. sv 19:17 Primary Nurse role handed off by Nat Murphy RN sv 19:21 Roland Hardy RN is Primary Nurse. jb4 19:33 CT Stone Protocol In Process Unspecified. EDMS 20:44 Hipolito Phan MD is Hospitalizing Provider. kb 20:44 Hospitalizing Provider role handed off by Hipolito Phan MD kb 20:44 Wan Phan MD is Hospitalizing Provider. kb 22:39 No provider procedures requiring assistance completed. Patient admitted, IV remains in jb4 place. Administered Medications: 19:27 Drug: Tylenol 1000 mg Route: PO; jb4 20:28 Follow up: Response: No adverse reaction; Pain is decreased jb4 20:28 Drug: Rocephin 1 grams Route: IV; Rate: calculated rate; Site: right forearm; jb4 20:30 Follow up: Response: No adverse reaction; IV Status: Completed infusion; IV Intake: [id number] 21:45 Drug: Meropenem 1 grams Route: IV; Rate: calculated rate; Site: right forearm; jb4 22:15 Follow up: Response: No adverse reaction; IV Status: Completed infusion; IV Intake: jb4 100ml Intake: 20:30 IV: 10ml; Total: 10ml. jb4 22:15 IV: 100ml; Total: 110ml. jb4 Outcome: 20:44 Decision to Hospitalize by Provider. kb 23:37 Admitted to Med/surg accompanied by nurse, via wheelchair, with chart, Report called to jb SOLITARIO Gramajo 23:37 Condition: stable 23:37 Discharge instructions given to patient, Instructed on the need for admit, Demonstrated understanding of instructions. 23:58 Patient left the ED. jb4 Signatures: Dispatcher [employer] EDMS Reva Ramírez, CHICKEN CLEANER-C CHICKEN CLEANER-CkNat Arana, RN Eileen Tyler mr GoodmanSoledad, RN RN Roland Sebastian, RN RN jb4 Corrections: (The following items were deleted from the chart) 17:55 17:50 Chief complaint: Pt's daughter states "she's had a UTI for a month and Dr. claudia King wants her admitted for IV antibiotics". Pt c/o suprapubic pressure. Pt's daughter reports pt has Tylenol #3 for pain but is making her vomit. aa5 20:48 19:00 Reassessment: Patient appears in no apparent distress at this time. Patient jb4 and/or family updated on plan of care and expected duration. Pain level reassessed. Patient is alert, oriented x 3, equal unlabored respirations, skin warm/dry/pink. jb4 20:48 19:30 Reassessment: Patient and/or family updated on plan of care and expected jb4 duration. Pain level reassessed. Patient is alert, oriented x 3, equal unlabored respirations, skin warm/dry/pink. PT reports pain is 8/10 and is requesting extra strength tylenol, provider notified, see MAR for orders. jb4 21:52 20:28 Response: No adverse reaction; IV Status: Completed infusion; IV Intake: 10ml jb4 jb4
--- NOTE | 2019-10-18 21:46 | P.HP ---
Certification for Inpatient With expected LOS: >2 Midnights Patient will require the following post-hospital care: None Practitioner: I am a practitioner with admitting privileges, knowledge of patient current condition, hospital course, and medical plan of care. Services: Services provided to patient in accordance with Admission requirements found in Title 42 Section 412.3 of the Code of Federal Regulations Patient History Date of Service: 10/18/19 Reason for admission: Cystitis-failed outpatient antibiotic History of Present Illness: 79-year-old female with a past medical history of type 2 diabetes mellitus, end- stage renal disease and chronic cystitis presents to the emergency room sent by her PCP with complaints of worsening suprapubic pain and discomfort. Also dys uria. Patient's daughter states the patient is had a chronic UTI for the past month. She has been on multiple oral antibiotics with no relief. Patient saw her ship liner today who Center to the ER for admission for IV antibiotics. In the emergency room patient is alert and oriented x3. Pleasant and cooperative. In no distress. ED blood work showed a UA with 3+ leukocyte esterase, positive for nitrates, white cell count greater than 50. White cell count is 9.0 but patient has been on oral antibiotics for a month. She is complaining of suprapubic pain and dysuria. Patient will be admitted and further evaluated. Allergies iodine [Iodine] Allergy (Severe, Verified 11/20/18 20:58) throat swelling morphine Allergy (Severe, Verified 05/27/19 03:20) paralysis diphenhydramine HCl [From Benadryl] Allergy (Verified 11/20/18 20:58) Anaphylaxis Sulfa (Sulfonamide Antibiotics) Allergy (Verified 11/20/18 20:58) Nausea/Vomiting sulfamethoxazole [From Bactrim] Allergy (Verified 11/20/18 20:58) Nausea/Vomiting trimethoprim [From Bactrim] Allergy (Verified 11/20/18 20:58) Nausea/Vomiting levofloxacin [From Levaquin] Adverse Reaction (Severe, Verified 11/20/18 20:58) vomiting metoclopramide [From Reglan] Adverse Reaction (Verified 11/20/18 20:58) Nausea/Vomiting promethazine [From Phenergan] Adverse Reaction (Verified 11/20/18 20:58) Nausea/Vomiting Narcotics Allergy (Severe, Uncoded 04/06/20 03:20) Anaphylaxis Home medications list reviewed: No Home Medications: Atorvastatin Calcium [Lipitor] 80 mg PO BEDTIME 08/22/18 Bumetanide [Bumex*] 1 mg PO TID 08/22/18 Folic Acid 1 mg PO DAILY 08/22/18 Nitroglycerin [Nitrostat*] 0.4 mg SL SEECOM PRN 08/22/18 Linagliptin [Tradjenta] 5 mg PO DAILY 09/10/18 calcitrioL [Calcitriol] 1 cap PO DAILY 11/20/18 Insulin Degludec [Tresiba Flextouch U-200] 12 units SQ DAILY 05/27/19 Metoprolol Tartrate [Lopressor*] 100 mg PO BID 05/27/19 Ticagrelor [Brilinta*] 1 tab PO BID 08/21/19 Ranolazine [Ranexa] 500 mg PO BID 09/21/19 Aspirin Chewable [Aspirin Chewable*] 81 mg PO DAILY tab.chew 09/22/19 - Past Medical/Surgical History Diabetic: Yes -: Diabetes mellitus type 2 -: Hypertension -: Chronic renal disease stage 4 -: Broken tani shoulders, toes tani feet, L elbow hx -: Cataract -: History DVT to the left lower extremity -: Hyperlipidemia -: CAD with multiple stents -: Peripheral vascular disease -: Carotid arterial disease -: History of osteomyelitis -: Severe cervical spine disease -: heart stents 8-9x; last one was Mar 2019 -: 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 She has 6 children - Family History Father -: GI disease, Cancer Notes: stomach Mother -: GI disease, Stroke, Other (see notes) Notes: brain tumor Brother -: Heart disease, Hypertension, Diabetes, Cancer, Kidney disease Notes: stomach CA Sister -: Heart disease, Hypertension, GI disease - Social History Smoking Status: Never smoker Alcohol use: No CD- Drugs: No Caffeine use: Yes Place of Residence: Home Review of Systems General: As per HPI Eyes: Unremarkable Respiratory: Unremarkable Cardiovascular: Unremarkable Gastrointestinal: Abdominal Pain, As per HPI Genitourinary: Dysuria, Frequency, Urgency, As per HPI Musculoskeletal: Unremarkable Integumentary: Unremarkable Neurological: Unremarkable Lymphatics: Unremarkable Physical Examination - Vital Signs Temperature: 99.6 F Blood Pressure: 129/62 Pulse: 99 Respirations: 16 Pulse Ox (%): 95 (RA) - Physical Exam General: Alert, In no apparent distress, Oriented x3 HEENT: Atraumatic, Normocephalic, PERRLA, Mucous membr. moist/pink Neck: Supple, No Thyromegaly, Other (Trachea midline) Respiratory: Clear to auscultation bilaterally, Normal air movement Cardiovascular: No edema, Normal pulses, Regular rate/rhythm, Normal S1 S2 Capillary refill: <2 Seconds Gastrointestinal: Normal bowel sounds, Soft and benign, Non-distended Musculoskeletal: No clubbing, No swelling, No contractures, No erythema Integumentary: No rashes, No breakdown, No significant lesion, No tenderness/swelling Neurological: Normal gait, Normal speech, Normal strength at 5/5 x4 extr, Normal tone Urinary: Dialysis catheter - Studies Laboratory Data (last 24 hrs) 10/18/19 18:35: Sodium 137, Potassium 3.9, BUN 18, Creatinine 2.80 H, Glucose 351 H 10/18/19 18:35: WBC 9.1 D, Hgb 11.1 L, Hct 34.2 L, Plt Count 214 Assessment and Plan - Plan Impression: Chronic recurrent cystitis complicated by failed outpatient or antibiotic therapy: End-stage renal disease on dialysis: Type 2 diabetes mellitus: Plan: Chronic recurrent cystitis complicated by failed outpatient or antibiotic therapy: Patient has been on an oral antibiotic for the past month. She has had several UTIs in the past year. Based on urine culture results from September of 2018 which showed growth of Pseudomonas aeruginosa will start patient on IV meropenem 1 g q[address] on telemetry. UA in the ER showed 3+ leukocyte esterase, positive nitrites and white cells greater than 50. Monitor vitals. End-stage renal disease on dialysis: Patient was at dialysis today. Followed by who requested to be consulted once patient was admitted. Type 2 diabetes mellitus: Accu-Cheks a.c. HS. Diabetic diet. Continue sliding scale insulin. Can restart home medications once verified. Discharge Plan: Home Plan to discharge in: Greater than 2 days - Advance Directives Does patient have a Living Will: Yes Does patient have a Durable POA for Healthcare: Yes - Code Status/Comfort Care Code Status Assessed: Yes Time Spent Managing Pts Care (In Minutes): 55
[2019-10-18] MEDS ORDERED: NA CHLORIDE 0.9% 1,000 ML IV SCH (23:40)
[2019-10-19] MEDS: INSULIN -REGULAR HUMAN 50 UNIT/0.5 ML ML SQ SCH ×5 (01:28→20:52)
[2019-10-19] MEDS: HEPARIN 5000 UNIT/ML 1 ML VIAL SQ SCH ×3 (01:29→16:47)
[2019-10-19 06:16] LABS: Absolute Lymphocytes (CBC) 1.1 K/uL (0.7-4.9); Hematocrit 30.8 % (36.0-45.0); Lymphocytes % 17.7 % (15.3-44.8); MPV 8.4 fL (7.6-11.3); RBC Red Blood Cell Count 3.32 M/uL (3.86-4.86)
[2019-10-19 06:33] LABS: Magnesium 2.4 mg/dL (1.8-2.4); Potassium 4.3 mmol/L (3.5-5.1)
[2019-10-19] MEDS: Meropenem 1,000 MG in NA CHLORIDE 0.9% 100 ML IV SCH ×2 (09:26→20:52)
[2019-10-19] MEDS ORDERED: Meropenem 1000 MG/VIAL IV SCH (10:00)
--- NOTE | 2019-10-19 10:00 | P.PN ---
Subjective Date of Service: 10/19/19 Chief Complaint: Cystitis-failed outpatient antibiotic Subjective: No new changes, Improving Review of Systems 10-point ROS is otherwise unremarkable Physical Examination - Vital Signs Temperature: 96.8 F Blood Pressure: 120/58 Pulse: 99 Respirations: 16 Pulse Ox (%): 98 - Physical Exam General: Alert, In no apparent distress, Oriented x3 HEENT: Atraumatic, Normocephalic Neck: Supple Respiratory: Clear to auscultation bilaterally Cardiovascular: Regular rate/rhythm, Normal S1 S2 Capillary refill: <2 Seconds Gastrointestinal: Soft and benign, Non-distended, W/out hepatosplenomegaly Musculoskeletal: No clubbing, No swelling Integumentary: No rashes Neurological: Normal speech, Normal strength at 5/5 x4 extr Lymphatics: No axilla or inguinal lymphadenopathy - Studies Laboratory Data (last 24 hrs) 10/18/19 18:35: Sodium 137, Potassium 3.9, BUN 18, Creatinine 2.80 H, Glucose 351 H 10/18/19 18:35: WBC 9.1 D, Hgb 11.1 L, Hct 34.2 L, Plt Count 214 Assessment & Plan Physician Review Additional Text: Acute UTI Chronic recurrent cystitis complicated by failed outpatient or antibiotic therapy: End-stage renal disease on dialysis: Type 2 diabetes mellitus: Plan: Chronic recurrent cystitis complicated by failed outpatient or antibiotic therapy: Patient has been on an oral antibiotic for the past month. had several UTIs in the past year. Based on urine culture results from September of 2018 which showed growth of Pseudomonas aeruginosa on IV meropenem 1 g q.8 hr. Awaiting urine culture End-stage renal disease on dialysis: Nephrology consult On dialysis Monitor electrolytes and correct accordingly Type 2 diabetes mellitus: Accu-Cheks a.c. HS. Diabetic diet. Continue sliding scale insulin. Continue home medications and titrate as needed Discharge Plan: Home Time Spent Managing Pts Care (In Minutes): 42
[2019-10-19 10:07] LABS: Blood Morphology Comment NOT SEEN (NOT SEEN); Platelet Estimate ADEQ; White Blood Cell Scan OK
[2019-10-19 10:55] LABS: Urine Appearance TURBID; Urine Blood 2+ (NEG); Urine Color ORANGE; Urine Glucose TRACE (NEG); Urine Protein 2+ (NEG); Urine pH 5.5 (5.0-7.0)
[2019-10-19 11:02] LABS: Urine Bilirubin NEGATIVE (NEG); Urine Microscopic Reflex ORDER UMIC
[2019-10-19 11:20] LABS: Urine Culture Reflex Order NOT NEEDED; Urine RBC <5 /HPF (NONE SEEN); Urine Yeast PRESENT (NONE SEEN)
[2019-10-19 11:21] LABS: Urine Bacteria 20-50 /HPF (<20)
[2019-10-19] MEDS: PHENAZOPYRIDINE 100MG TAB PO SCH (18:00)
[2019-10-19] MEDS: BUMETANIDE 1 MG TABLET PO SCH (18:16)
--- NOTE | 2019-10-19 19:45 | CON ---
Date of Consultation: 10/19/2019 Reason For Consultation: End-stage renal disease. Requesting Provider: Josh Perez MD History Of Present Illness: Ms. Gonzalez is a 79-year-old female with past medical history of diabet es and hypertension, who has end-stage renal disease, has been admitted with recurring urinary tract infection. The patient had nausea, vomiting, dysuria and she has been admitted for failure of outpat ient antibiotics. Consultation was requested for dialysis management. She dialyzes on Monday, , Monday schedule at the [facility] [place]. She has been stable on treatment. Review of Systems: No fevers, chills, chest pain, shortness of breath. Nausea has improved. She still has intermittent suprapubic pain. Past Medical History: As stated per HPI. Physical Examination: Vital Signs: Blood pressure 140/63, pulse 79, afebrile. General: No acute distress. Heart: Regular rate and rhythm. No murmurs or gallops. Lungs: Clear to auscultation bilaterally. Abdomen: Soft, mild suprapubic tenderness noted. Extremities: No significant edema. Laboratory Data: CBC reviewed. Chemistry was reviewed. BUN 28, creatinine 3.43. CBC; hemoglobin 1 0.1, hematocrit 30.8. UA did show evidence of UTI. Current medications were reviewed. Impression: 1.End-stage renal disease, on hemodialysis. 2.Recurrent urinary tract infection. 3.Diabetes mellitus. Plan: Continue antibiotics. Ensure the patient is on a renal diet. Renally dose all medications. We will continue the patient on Monday, Monday, Monday dialysis schedule if still here in hospital . Thank you for the consultation. PADMINI Voice ID: [id number] Report ID: [id number]
[2019-10-19] MEDS: METOPROLOL TAR 50 MG TAB PO SCH (20:53)
[2019-10-19] MEDS: ATORVASTATIN 80 MG TAB PO SCH (20:53)
[2019-10-19] MEDS: TICAGRELOR 90 MG TABLET PO SCH (20:53)
[2019-10-19] MEDS ORDERED: INSULIN LISPRO 4 UNIT SQ SCH (21:00)
[2019-10-19] MEDS ORDERED: HOME MED 1 EA UNK (Ranolazine [Ranexa] 500 MG) PO SCH (21:00)
[2019-10-19] MEDS: DOCUSATE NA 100 MG CAP PO PRN (22:11)
[2019-10-20] MEDS: HEPARIN 5000 UNIT/ML 1 ML VIAL SQ SCH ×3 (00:02→17:19)
[2019-10-20] MEDS: ONDANSETRON 4 MG/2 ML VIAL IV PRN (01:43)
[2019-10-20] MEDS: ACETAMINOPHEN 325 MG TABLET PO PRN (01:43)
[2019-10-20] MEDS: PHENAZOPYRIDINE 100MG TAB PO SCH ×2 (02:00→09:40)
[2019-10-20] MEDS: BUMETANIDE 1 MG TABLET PO SCH ×2 (05:18→17:20)
[2019-10-20] MEDS: CALCITROL 0.25 MCG CAP PO SCH (08:33)
[2019-10-20] MEDS: INSULIN -REGULAR HUMAN 50 UNIT/0.5 ML ML SQ SCH ×4 (08:33→19:48)
[2019-10-20] MEDS: Meropenem 1,000 MG in NA CHLORIDE 0.9% 100 ML IV SCH ×2 (08:33→19:49)
[2019-10-20] MEDS: FOLIC ACID 1 MG TABLET PO SCH (08:34)
[2019-10-20] MEDS: INSULIN LISPRO 100 UNIT/1 ML SQ SCH ×3 (08:35→21:11)
[2019-10-20] MEDS: METOPROLOL TAR 50 MG TAB PO SCH ×2 (09:00→19:48)
[2019-10-20] MEDS: HOME MED 1 EA UNK (Linagliptin [Tradjenta] 5 MG) PO SCH (09:00)
[2019-10-20] MEDS: TICAGRELOR 90 MG TABLET PO SCH ×2 (09:42→19:49)
--- NOTE | 2019-10-20 09:50 | P.PN ---
Subjective Date of Service: 10/20/19 Chief Complaint: Cystitis-failed outpatient antibiotic Subjective: No new changes, Worsening, Other (Still continues to have dysuria also have discoloration in her urine) Review of Systems 10-point ROS is otherwise unremarkable Physical Examination - Vital Signs Temperature: 97.1 F Blood Pressure: 109/53 Pulse: 83 Respirations: 17 Pulse Ox (%): 98 - Physical Exam General: Alert, In no apparent distress HEENT: Atraumatic, Normocephalic Neck: Supple, 2+ carotid pulse no bruit Respiratory: Clear to auscultation bilaterally, Normal air movement Cardiovascular: Regular rate/rhythm, Normal S1 S2 Capillary refill: <2 Seconds Gastrointestinal: Soft and benign, Non-distended, W/out hepatosplenomegaly Musculoskeletal: No clubbing, No swelling Integumentary: No significant lesion, No tenderness/swelling Neurological: Normal speech, Normal strength at 5/5 x4 extr Lymphatics: No axilla or inguinal lymphadenopathy Urinary: Other (Pain in the lower abdomen ) Assessment & Plan Physician Review Additional Text: Acute UTI Chronic recurrent cystitis complicated by failed outpatient or antibiotic the rapy: End-stage renal disease on dialysis: Type 2 diabetes mellitus: Plan: Chronic recurrent cystitis complicated by failed outpatient or antibiotic therapy: Patient has been on an oral antibiotic for the past month. had several UTIs in the past year. Based on urine culture results from September of 2018 which showed growth of Pseudomonas aeruginosa on IV meropenem 1 g q.8 hr. Awaiting urine culture Patient still have dysuria CT of the abdomen showed irregularities in the urinary bladder will get a urology consult End-stage renal disease on dialysis: Nephrology consult On dialysis Monitor electrolytes and correct accordingly Type 2 diabetes mellitus: Accu-Cheks a.c. HS. Diabetic diet. Continue sliding scale insulin. Continue home medications and titrate as needed Disposition : Continue IV antibiotic, awaiting for cultures Will change antibiotic as per the sensitivity Urology consult Nephrology consult appreciated Time Spent Managing Pts Care (In Minutes): 42
[2019-10-20] MEDS: ATORVASTATIN 80 MG TAB PO SCH (19:48)
[2019-10-21] MEDS: HEPARIN 5000 UNIT/ML 1 ML VIAL SQ SCH ×3 (01:36→17:00)
[2019-10-21] MEDS: BUMETANIDE 1 MG TABLET PO SCH ×2 (05:34→20:50)
[2019-10-21] MEDS: ACETAMINOPHEN 325 MG TABLET PO PRN (05:45)
[2019-10-21] MEDS: ONDANSETRON 4 MG/2 ML VIAL IV PRN (08:32)
[2019-10-21] MEDS: INSULIN -REGULAR HUMAN 50 UNIT/0.5 ML ML SQ SCH ×4 (08:34→20:52)
[2019-10-21] MEDS: CALCITROL 0.25 MCG CAP PO SCH (08:35)
[2019-10-21] MEDS: TICAGRELOR 90 MG TABLET PO SCH ×2 (08:35→20:51)
[2019-10-21] MEDS: METOPROLOL TAR 50 MG TAB PO SCH ×2 (08:37→20:46)
[2019-10-21] MEDS: FOLIC ACID 1 MG TABLET PO SCH (08:37)
[2019-10-21] MEDS: Meropenem 1,000 MG in NA CHLORIDE 0.9% 100 ML IV SCH (08:40)
[2019-10-21] MEDS: HOME MED 1 EA UNK (Linagliptin [Tradjenta] 5 MG) PO SCH (08:49)
[2019-10-21] MEDS: INSULIN LISPRO 100 UNIT/1 ML SQ SCH ×3 (09:00→20:44)
[2019-10-21] MEDS ORDERED: NA CHLORIDE 0.9% 1,000 ML IV PRN (10:07)
[2019-10-21] MEDS ORDERED: MANNITOL 25% 12.5 GM/50 ML VIAL IV PRN (10:07)
[2019-10-21] MEDS ORDERED: ALBUMIN HUMAN 25% 50 ML IV SCH (11:00)
[2019-10-21] MEDS: FLUCONAZOLE 100 MG TAB PO SCH (11:40)
--- NOTE | 2019-10-21 18:08 | P.PN ---
Subjective Date of Service: 10/21/19 Chief Complaint: Cystitis-failed outpatient antibiotic Subjective: No new changes (continues with burning on urination, +nausea) Review of Systems 10-point ROS is otherwise unremarkable Physical Examination - Vital Signs Temperature: 98.0 F Blood Pressure: 114/56 Pulse: 92 Respirations: 18 Pulse Ox (%): 97 - Physical Exam General: Alert, In no apparent distress HEENT: Mucous membr. moist/pink Neck: No LAD Respiratory: Clear to auscultation bilaterally, Normal air movement Cardiovascular: No edema, Normal S1 S2 Gastrointestinal: Soft and benign, Non-distended, No tenderness Musculoskeletal: No tenderness Integumentary: No rashes Neurological: Normal speech, Normal affect - Studies Microbiology Data (last 24 hrs): 10/18/19 20:00 Clean Catch Urine [place] Count - Final >100,000 CFU/ML. 10/18/19 20:00 Clean Catch Urine - Final MIXED HAL. Assessment & Plan Physician Review Additional Text: Acute UTI Chronic recurrent cystitis complicated by failed outpatient or antibiotic therapy: End-stage renal disease on dialysis: Type 2 diabetes mellitus: Plan: Chronic recurrent cystitis complicated by failed outpatient or antibiotic therapy: Patient has been on an oral antibiotic for the past month. x3 had several UTIs in the past year. Based on urine culture results from September of 2018 which showed growth of Pseudomonas aeruginosa on IV meropenem 1 g q.8 hr. , Awaiting urine culture - prelim with mixed hal Patient still having dysuria - UA with +yeast, will treat with diflucan CT of the abdomen showed irregularities in the urinary bladder, urology consult unavailable inpatient patient with h/o Cdiff colitis x2 - high risk, will monitor closely End-stage renal disease on dialysis: Nephrology consult - On dialysis Monitor electrolytes and correct accordingly Type 2 diabetes mellitus: Accu-Cheks a.c. HS. Diabetic diet. Continue sliding scale insulin. Continue home medications and titrate as needed Disposition : Continue IV antibiotic, awaiting for cultures Will change antibiotic as per the sensitivity Nephrology consult appreciated Time Spent Managing Pts Care (In Minutes): 35
[2019-10-21] MEDS: NITROGLYCERIN 0.4 MG/TAB SL PRN (19:09)
--- NOTE | 2019-10-21 20:12 | P.PN ---
Date of Service: 10/21/19 Vital Signs Temp Pulse Resp BP Pulse Ox 97.5 F 92 H 18 114/56 L 97 10/21/19 19:00 10/21/19 19:09 10/21/19 18:08 10/21/19 19:09 10/21/19 18:08 Medications Acetaminophen (Tylenol -Tablet) 650 mg PO Q4H PRN PRN Reason: TEMP > 100' F Stop: 11/18/19 17:03 Last Admin: 10/21/19 05:45 Dose: 650 mg Documented by: Atorvastatin Calcium (Lipitor) 80 mg PO BEDTIME JL Stop: 11/18/19 21:01 Last Admin: 10/20/19 19:48 Dose: 80 mg Documented by: Bumetanide (Bumex) 1 mg PO Q12H JL Stop: 11/18/19 18:01 Last Admin: 10/21/19 05:34 Dose: 1 mg Documented by: Calcitriol (Rocaltrol) 0.5 mcg PO DAILY JL Stop: 11/19/19 09:01 Last Admin: 10/21/19 08:35 Dose: Not Given Documented by: Docusate Sodium (Colace Cap) 100 mg PO DAILY PRN PRN Reason: CONSTIPATION Stop: 11/18/19 21:42 Last Admin: 10/19/19 22:11 Dose: 100 mg Documented by: Fluconazole (Diflucan Tab) 100 mg PO DAILY JL Stop: 11/20/19 11:31 Last Admin: 10/21/19 11:40 Dose: 100 mg Documented by: Folic Acid (Folic Acid) 1 mg PO DAILY [facility] Stop: 11/19/19 09:01 Last Admin: 10/21/19 08:37 Dose: 1 mg Documented by: Heparin Sodium (Porcine) (Heparin 5,000 Units/Ml) 5,000 unit SQ Q8HR JL Stop: 11/18/19 01:01 Last Admin: 10/21/19 08:35 Dose: 5,000 unit Documented by: Heparin Sodium (Porcine) (Heparin 1,000 Units/Ml) 6,000 unit IV EVERY HD PRN PRN Reason: AFTER EACH Stop: 11/20/19 10:08 Home Med (Linagliptin [Tradjenta]) 5 mg PO DAILY [facility] Stop: 11/19/19 09:01 Last Admin: 10/21/19 08:49 Dose: Not Given Documented by: Meropenem 1,000 mg/ Sodium (Chloride) 100 mls @ 100 mls/hr IV 0900 [facility] Stop: 11/18/19 09:01 Sodium Chloride (Ns 1000 Ml Ivbag) 1,000 mls @ 0 mls/hr IV .Q0M PRN; Protocol PRN Reason: Priming and BP support at HD Stop: 10/21/19 23:59 Albumin Human (Albumin 25%) 50 mls @ 100 mls/hr IV EVERY HD [facility] Stop: 11/20/19 11:01 Insulin Human Lispro (Humalog) 4 unit SQ TID [facility] Stop: 11/19/19 09:01 Last Admin: 10/21/19 13:32 Dose: 4 unit Documented by: Insulin Human Regular (Novolin -R) 0 unit SQ ACHS [facility]; Protocol Stop: 11/18/19 07:31 Last Admin: 10/21/19 16:30 Dose: Not Given Documented by: Mannitol (Mannitol 12.5 Gm/50 Ml Vial) 12.5 gm IV EVERY HD PRN PRN Reason: Titrate to SBP (MUST DEFINE) Stop: 11/20/19 10:08 Metoprolol Tartrate (Lopressor) 50 mg PO BID [facility] Stop: 11/19/19 21:01 Last Admin: 10/21/19 08:37 Dose: Not Given Documented by: Nitroglycerin (Nitrostat) 0.4 mg SL SEECOM PRN PRN Reason: Pain scale 5-7 (Moderate) Stop: 11/18/19 17:02 Last Admin: 10/21/19 19:09 Dose: 0.4 tab Documented by: Ondansetron HCl (Zofran) 4 mg IV Q6H PRN PRN Reason: NAUSEA / VOMITING Stop: 11/19/19 01:36 Last Admin: 10/21/19 08:32 Dose: 4 mg Documented by: Ranolazine (Ranexa) 500 mg PO Q12H [facility] Stop: 11/18/19 03:01 Last Admin: 10/21/19 15:00 Dose: Not Given Documented by: Sodium Chloride (Normal Saline Flush) 10 ml IV BID [facility] Stop: 11/18/19 09:01 Last Admin: 10/21/19 08:41 Dose: 10 ml Documented by: Ticagrelor (Brilinta) 90 mg PO BID JL Stop: 11/18/19 21:01 Last Admin: 10/21/19 08:35 Dose: 90 mg Documented by: Microbiology Results 10/18/19 20:00 Clean Catch Urine [place] Count - Final >100,000 CFU/ML. 10/18/19 20:00 Clean Catch Urine - Final MIXED MIKE. 10/18/19 18:45 Blood - Blood Aerobic Blood Culture - Preliminary No growth in 24 hours. 10/18/19 18:45 Blood - Blood Anaerobic Blood Culture - Preliminary No growth in 24 hours. 10/18/19 18:35 Blood - Blood Aerobic Blood Culture - Preliminary No growth in 24 hours. 10/18/19 18:35 Blood - Blood Anaerobic Blood Culture - Preliminary No growth in 24 hours. Assessment/ Plan: Nephrology CPS stable without CP or SOB. Persistent dysuria with pubic pain. No acute events overnight. Vitals, medications, blood work and imaging reviewed in the chart. NAD. MMM. Neck supple. CTA. RRR. Soft Abd. No C/C/E. No rash. AAO. Normal Speech. Obese. A/ ESRD on HD Hyponatremia HTN with CKD/ CHF Diastolic CHF, chronic DM II with CKD Anemia in CKD GREGORY/ Secondary HyperPTH. Hypocalcemia. Acute cystitis. P/ Continue current POC and Medications. Acute HD as ordered. Continue abx. AM labs. Daily weight. No NSAIDs.
[2019-10-21] MEDS: ATORVASTATIN 80 MG TAB PO SCH (20:45)
[2019-10-22] MEDS: HEPARIN 5000 UNIT/ML 1 ML VIAL SQ SCH ×3 (00:56→17:28)
[2019-10-22 04:11] LABS: Hematocrit 30.2 % (36.0-45.0); MPV 8.5 fL (7.6-11.3); RBC Red Blood Cell Count 3.23 M/uL (3.86-4.86)
[2019-10-22 04:24] LABS: Magnesium 2.3 mg/dL (1.8-2.4); Potassium 4.9 mmol/L (3.5-5.1)
[2019-10-22] MEDS: BUMETANIDE 1 MG TABLET PO SCH ×2 (05:42→17:29)
--- NOTE | 2019-10-22 07:01 | EKG ---
Test Date: 2019-10-21 Test Time: 19:11:32 Box Loader: RT MEASUREMENT RESULTS: Intervals: Rate: 113 VA: 176 QRSD: 140 QT: 370 QTc: 507 [place]: P: 88 VA: 176 QRS: -24 T: 132 INTERPRETIVE STATEMENTS: Sinus tachycardia Left bundle branch block Abnormal ECG Compared to ECG 10/09/2019 15:33:16 Sinus rhythm no longer present ST (T wave) deviation no longer present Possible ischemia no longer present Prolonged QT interval no longer present Electronically Signed On 10-22-19 07:00:08 CDT by Portillo Arteaga
[2019-10-22] MEDS: INSULIN -REGULAR HUMAN 50 UNIT/0.5 ML ML SQ SCH ×4 (07:30→21:24)
[2019-10-22] MEDS: CALCITROL 0.25 MCG CAP PO SCH (09:00)
[2019-10-22] MEDS: METOPROLOL TAR 50 MG TAB PO SCH ×2 (09:00→21:00)
[2019-10-22] MEDS: HOME MED 1 EA UNK (Linagliptin [Tradjenta] 5 MG) PO SCH (09:00)
[2019-10-22] MEDS: FLUCONAZOLE 100 MG TAB PO SCH (09:45)
[2019-10-22] MEDS: Meropenem 1,000 MG in NA CHLORIDE 0.9% 100 ML IV SCH (09:45)
[2019-10-22] MEDS: TICAGRELOR 90 MG TABLET PO SCH ×2 (09:45→21:20)
[2019-10-22] MEDS: FOLIC ACID 1 MG TABLET PO SCH (09:46)
[2019-10-22] MEDS: INSULIN LISPRO 100 UNIT/1 ML SQ SCH ×3 (09:50→16:30)
--- NOTE | 2019-10-22 13:16 | P.PN ---
Subjective Date of Service: 10/22/19 Chief Complaint: Cystitis-failed outpatient antibiotic Subjective: Improving (Dysuria improving, suprapubic pain improving) Review of Systems 10-point ROS is otherwise unremarkable Physical Examination - Vital Signs Temperature: 98 F Blood Pressure: 102/53 Pulse: 90 Respirations: 18 Pulse Ox (%): 96 - Physical Exam General: Alert, In no apparent distress HEENT: Atraumatic, PERRLA, EOMI Neck: Supple, JVD not distended Respiratory: Clear to auscultation bilaterally, Normal air movement Cardiovascular: Regular rate/rhythm, Normal S1 S2 Gastrointestinal: Soft and benign, Tenderness (Mild in suprapubic region) Musculoskeletal: No erythema, No tenderness Integumentary: No rashes, No breakdown Neurological: Normal speech, Normal affect Assessment & Plan Physician Review Additional Text: Acute UTI Chronic recurrent cystitis complicated by failed outpatient or antibiotic therapy: End-stage renal disease on dialysis: Type 2 diabetes mellitus: Plan: Chronic recurrent cystitis complicated by failed outpatient or antibiotic therapy: Patient has been on an oral antibiotic for the past month. x3 had several UTIs in the past year. Based on urine culture results from September of 2018 which showed growth of Pseudomonas aeruginosa on IV meropenem 1 g q.8 hr. , Urine culture growing mixed hal. UA with +yeast, treating with diflucan, but also notable for positive leuk esterase and bacteria Unclear if true bacterial infection versus yeast infection. Patient has had mild improvement in symptoms since starting Diflucan yesterday Given the uncertainty, will consult infectious disease for assistance patient with h/o Cdiff colitis x2 - high risk, will monitor closely End-stage renal disease on dialysis: Nephrology consult - On dialysis Monitor electrolytes and correct accordingly Type 2 diabetes mellitus: Accu-Cheks a.c. HS. Diabetic diet. Continue sliding scale insulin. Continue home medications and titrate as needed Disposition : Continue IV antibiotic, Diflucan, ID consult. Possible discharge within 24-48 hrs Time Spent Managing Pts Care (In Minutes): 35
--- NOTE | 2019-10-22 15:59 | P.CNS ---
Date of Consult: 10/22/19 Subjective: Patient is a 79-year-old female who presents to the ED with complaints of worsening suprapubic pain and dysuria despite outpatient antibiotics. Patient reports dysuria for one month and has been on three different antibiotics in the past month with no relief. Patient found to have UTI which I have been consulted for. Patient has ESRD on dialysis since August 2019. Past medical/surgical history: Diabetes mellitus type 2, hypertension, chronic renal disease stage IV, cataract, DVT left lower extremity, hyperlipidemia, CAD with stents, PVD, CAD, osteomyelitis, heart stents, cholecystectomy, hysterectomy Family history: Father- GI disease, stomach cancer. Mother-GI disease, stroke, brain tumor Social history: Denies tobacco and alcohol use Allergies iodine [Iodine] Allergy (Severe, Verified 11/20/18 20:58) throat swelling morphine Allergy (Severe, Verified 05/27/19 03:20) paralysis diphenhydramine HCl [From Benadryl] Allergy (Verified 11/20/18 20:58) Anaphylaxis Sulfa (Sulfonamide Antibiotics) Allergy (Verified 11/20/18 20:58) Nausea/Vomiting sulfamethoxazole [From Bactrim] Allergy (Verified 11/20/18 20:58) Nausea/Vomiting trimethoprim [From Bactrim] Allergy (Verified 11/20/18 20:58) Nausea/Vomiting levofloxacin [From Levaquin] Adverse Reaction (Severe, Verified 11/20/18 20:58) vomiting metoclopramide [From Reglan] Adverse Reaction (Verified 11/20/18 20:58) Nausea/Vomiting promethazine [From Phenergan] Adverse Reaction (Verified 11/20/18 20:58) Nausea/Vomiting Narcotics Allergy (Severe, Uncoded 05/27/19 03:20) Anaphylaxis Active Medications Acetaminophen (Tylenol -Tablet) 650 mg PO Q4H PRN PRN Reason: TEMP > 100' F Stop: 11/18/19 17:03 Last Admin: 10/21/19 05:45 Dose: 650 mg Documented by: Atorvastatin Calcium (Lipitor) 80 mg PO BEDTIME [facility] Stop: 11/18/19 21:01 Last Admin: 10/21/19 20:45 Dose: Not Given Documented by: Bumetanide (Bumex) 1 mg PO Q12H JL Stop: 11/18/19 18:01 Last Admin: 10/22/19 05:42 Dose: 1 mg Documented by: Calcitriol (Rocaltrol) 0.5 mcg PO DAILY [facility] Stop: 11/19/19 09:01 Last Admin: 10/22/19 09:00 Dose: Not Given Documented by: Docusate Sodium (Colace Cap) 100 mg PO DAILY PRN PRN Reason: CONSTIPATION Stop: 11/18/19 21:42 Last Admin: 10/19/19 22:11 Dose: 100 mg Documented by: Fluconazole (Diflucan Tab) 100 mg PO DAILY JL Stop: 11/20/19 11:31 Last Admin: 10/22/19 09:45 Dose: 100 mg Documented by: Folic Acid (Folic Acid) 1 mg PO DAILY [facility] Stop: 11/19/19 09:01 Last Admin: 10/22/19 09:46 Dose: 1 mg Documented by: Heparin Sodium (Porcine) (Heparin 5,000 Units/Ml) 5,000 unit SQ Q8HR JL Stop: 11/18/19 01:01 Last Admin: 10/22/19 09:45 Dose: 5,000 unit Documented by: Heparin Sodium (Porcine) (Heparin 1,000 Units/Ml) 6,000 unit IV EVERY HD PRN PRN Reason: AFTER EACH Stop: 11/20/19 10:08 Last Admin: 10/21/19 17:55 Dose: 6,000 unit Documented by: Home Med (Linagliptin [Tradjenta]) 5 mg PO DAILY [facility] Stop: 11/19/19 09:01 Last Admin: 10/22/19 09:00 Dose: Not Given Documented by: Meropenem 1,000 mg/ Sodium (Chloride) 100 mls @ 100 mls/hr IV 0900 [facility] Stop: 11/18/19 09:01 Last Admin: 10/22/19 09:45 Dose: 100 mls Documented by: Albumin Human (Albumin 25%) 50 mls @ 100 mls/hr IV EVERY HD [facility] Stop: 11/20/19 11:01 Insulin Human Lispro (Humalog) 4 unit SQ AC JL Stop: 11/21/19 16:31 Insulin Human Regular (Novolin -R) 0 unit SQ ACHS [facility]; Protocol Stop: 11/18/19 07:31 Last Admin: 10/22/19 12:44 Dose: 4 unit Documented by: Mannitol (Mannitol 12.5 Gm/50 Ml Vial) 12.5 gm IV EVERY HD PRN PRN Reason: Titrate to SBP (MUST DEFINE) Stop: 11/20/19 10:08 Metoprolol Tartrate (Lopressor) 50 mg PO BID [facility] Stop: 11/19/19 21:01 Last Admin: 10/22/19 09:00 Dose: Not Given Documented by: Nitroglycerin (Nitrostat) 0.4 mg SL SEECOM PRN PRN Reason: Pain scale 5-7 (Moderate) Stop: 11/18/19 17:02 Last Admin: 10/21/19 19:09 Dose: 0.4 tab Documented by: Ondansetron HCl (Zofran) 4 mg IV Q6H PRN PRN Reason: NAUSEA / VOMITING Stop: 11/19/19 01:36 Last Admin: 10/21/19 08:32 Dose: 4 mg Documented by: Ranolazine (Ranexa) 500 mg PO Q12H [facility] Stop: 11/20/19 21:01 Last Admin: 10/22/19 09:45 Dose: 500 mg Documented by: Sodium Chloride (Normal Saline Flush) 10 ml IV BID [facility] Stop: 11/18/19 09:01 Last Admin: 10/22/19 09:47 Dose: 10 ml Documented by: Ticagrelor (Brilinta) 90 mg PO BID [facility] Stop: 11/18/19 21:01 Last Admin: 10/22/19 09:45 Dose: 90 mg Documented by: ROS: CV: Denies chest pain RESP: Denies shortness of breath : Reports dysuria improving GI: Reports nausea and constipation Objective: Temp Pulse Resp BP Pulse Ox 98 F 90 18 102/53 L 96 10/22/19 13:16 10/22/19 13:16 10/22/19 13:16 10/22/19 13:16 10/22/19 13:16 Labs: Sodium 137, potassium 4.9, BUN 27, creatinine 3.60, WBC 7.2, hemoglobin 10, hematocrit 30.2 EXAM DESCRIPTION: CT - Stone Protocol - 10/18/2019 7:33 pm CLINICAL HISTORY: Flank pain. ABD PAIN COMPARISON: CT ABDOMEN PELVIS WO CONTRAST dated 01/29/2015 TECHNIQUE: Axial images were obtained without oral or IV contrast. Lack of contrast limits solid organ and vascular assessment. The [id number] spans the entirety of the system partially obscuring uppermost abdomen and lung bases. Coronal reformatted images were obtained and reviewed. All CT scans are performed using dose optimization technique as appropriate and may include automated exposure control or mA/KV adjustment according to patient size. FINDINGS: Trace left pleural effusion is present. Imaged portions of the liver and spleen show no suspicious findings on non- contrast imaging.Cholecystectomy clips. The pancreas and adrenal glands are normal. No pathologic lymphadenopathy in the abdomen or pelvis. No urinary tract stones or obstructive uropathy. Prominent vascular calcifications are evident. Urinary bladder appears somewhat irregular shape with wall thickening. No bowel obstruction, free air, free fluid or abscess. The appendix is not identified as a discrete structure, however, no secondary findings of appendicitis are identified. Small fat containing right inguinal hernia. Moderate lumbosacral degenerative changes. IMPRESSION: No urinary tract stones or obstructive uropathy. Irregular and thickened urinary bladder noted which may indicate cystitis. ROS: General: Awake, alert, oriented CV: S1,S2 RESP: Good breath sounds ABD: Suprapubic tenderness on palpation, bowel sounds present Extremities: No edema Assessment and plan: UTI, UA positive for yeast, urine culture shows mixed hal Blood cultures negative Fluconazole day 2/5, Merrem day 03/01 ESRD on HD Diabetes mellitus, monitor glycemic control Will continue to monitor Thank you for consult Patient discussed with Dr. Baltazar
--- NOTE | 2019-10-22 16:52 | RAD REPORT ---
EXAM DESCRIPTION: MRI - Foot Left Wo Cont - 10/22/2019 4:32 pm CLINICAL HISTORY: f/u osteomyelitis Foot pain and swelling COMPARISON: Foot Left Wo Cont dated 08/16/2019; Foot Left Wo Cont dated 08/10/2016; Foot Left Wo Cont dated 06/20/2016 FINDINGS: The previously noted osteomyelitis pattern seen distal phalanx of the great toe has modera tely improved. The distal phalanx shows subtle T2/IR increased signal likely reactive marrow changes. There is no cortical breakthrough or T1 marrow placement in the region of interest seen. Mild edema is seen in the tissues surrounding the great toe. No fracture or subluxation. No soft tiss ue mass or hematoma. Small plantar and posterior calcaneal spurs are seen. IMPRESSION: Moderate improvement in the previously noted distal great toe osteomyelitis.
[2019-10-22] MEDS: ATORVASTATIN 80 MG TAB PO SCH (21:00)
--- NOTE | 2019-10-22 21:26 | P.PN ---
Date of Service: 10/22/19 Vital Signs Temp Pulse Resp BP Pulse Ox 97.5 F 98 H 18 122/60 98 10/22/19 16:00 10/22/19 17:29 10/22/19 16:00 10/22/19 17:29 10/22/19 16:00 Medications Acetaminophen (Tylenol -Tablet) 650 mg PO Q4H PRN PRN Reason: TEMP > 100' F Stop: 11/18/19 17:03 Last Admin: 10/21/19 05:45 Dose: 650 mg Documented by: Atorvastatin Calcium (Lipitor) 80 mg PO BEDTIME JL Stop: 11/18/19 21:01 Last Admin: 10/22/19 21:00 Dose: Not Given Documented by: Bumetanide (Bumex) 1 mg PO Q12H JL Stop: 11/18/19 18:01 Last Admin: 10/22/19 17:29 Dose: 1 mg Documented by: Calcitriol (Rocaltrol) 0.5 mcg PO DAILY JL Stop: 11/19/19 09:01 Last Admin: 10/22/19 09:00 Dose: Not Given Documented by: Docusate Sodium (Colace Cap) 100 mg PO DAILY PRN PRN Reason: CONSTIPATION Stop: 11/18/19 21:42 Last Admin: 10/19/19 22:11 Dose: 100 mg Documented by: Fluconazole (Diflucan Tab) 100 mg PO DAILY [facility] Stop: 11/20/19 11:31 Last Admin: 10/22/19 09:45 Dose: 100 mg Documented by: Folic Acid (Folic Acid) 1 mg PO DAILY [facility] Stop: 11/19/19 09:01 Last Admin: 10/22/19 09:46 Dose: 1 mg Documented by: Heparin Sodium (Porcine) (Heparin 5,000 Units/Ml) 5,000 unit SQ Q8HR JL Stop: 11/18/19 01:01 Last Admin: 10/22/19 17:28 Dose: 5,000 unit Documented by: Heparin Sodium (Porcine) (Heparin 1,000 Units/Ml) 6,000 unit IV EVERY HD PRN PRN Reason: AFTER EACH Stop: 11/20/19 10:08 Last Admin: 10/21/19 17:55 Dose: 6,000 unit Documented by: Home Med (Linagliptin [Tradjenta]) 5 mg PO DAILY [facility] Stop: 11/19/19 09:01 Last Admin: 10/22/19 09:00 Dose: Not Given Documented by: Meropenem 1,000 mg/ Sodium (Chloride) 100 mls @ 100 mls/hr IV 0900 [facility] Stop: 11/18/19 09:01 Last Admin: 10/22/19 09:45 Dose: 100 mls Documented by: Albumin Human (Albumin 25%) 50 mls @ 100 mls/hr IV EVERY HD [facility] Stop: 11/20/19 11:01 Insulin Human Lispro (Humalog) 4 unit SQ AC [facility] Stop: 11/21/19 16:31 Last Admin: 10/22/19 16:30 Dose: Not Given Documented by: Insulin Human Regular (Novolin -R) 0 unit SQ ACHS [facility]; Protocol Stop: 11/18/19 07:31 Last Admin: 10/22/19 17:28 Dose: 2 unit Documented by: Mannitol (Mannitol 12.5 Gm/50 Ml Vial) 12.5 gm IV EVERY HD PRN PRN Reason: Titrate to SBP (MUST DEFINE) Stop: 11/20/19 10:08 Metoprolol Tartrate (Lopressor) 50 mg PO BID [facility] Stop: 11/19/19 21:01 Last Admin: 10/22/19 21:00 Dose: Not Given Documented by: Nitroglycerin (Nitrostat) 0.4 mg SL SEECOM PRN PRN Reason: Pain scale 5-7 (Moderate) Stop: 11/18/19 17:02 Last Admin: 10/21/19 19:09 Dose: 0.4 tab Documented by: Ondansetron HCl (Zofran) 4 mg IV Q6H PRN PRN Reason: NAUSEA / VOMITING Stop: 11/19/19 01:36 Last Admin: 10/21/19 08:32 Dose: 4 mg Documented by: Ranolazine (Ranexa) 500 mg PO Q12H [facility] Stop: 11/20/19 21:01 Last Admin: 10/22/19 21:20 Dose: 500 mg Documented by: Sodium Chloride (Normal Saline Flush) 10 ml IV BID [facility] Stop: 11/18/19 09:01 Last Admin: 10/22/19 09:47 Dose: 10 ml Documented by: Ticagrelor (Brilinta) 90 mg PO BID [facility] Stop: 11/18/19 21:01 Last Admin: 10/22/19 21:20 Dose: 90 mg Documented by: Microbiology Results 10/18/19 20:00 Clean Catch Urine [place] Count - Final >100,000 CFU/ML. 10/18/19 20:00 Clean Catch Urine - Final MIXED MIKE. 10/18/19 18:45 Blood - Blood Aerobic Blood Culture - Preliminary No growth in 24 hours. 10/18/19 18:45 Blood - Blood Anaerobic Blood Culture - Preliminary No growth in 24 hours. 10/18/19 18:35 Blood - Blood Aerobic Blood Culture - Preliminary No growth in 24 hours. 10/18/19 18:35 Blood - Blood Anaerobic Blood Culture - Preliminary No growth in 24 hours. Assessment/ Plan: Nephrology CPS stable without CP or SOB. Persistent dysuria with pubic pain but feeling better. No acute events overnight. Vitals, medications, blood work and imaging reviewed in the chart. NAD. MMM. Neck supple. CTA. RRR. Soft Abd. No C/C/E. No rash. AAO. Normal Speech. Obese. A/ ESRD on HD Hyponatremia HTN with CKD/ CHF Diastolic CHF, chronic DM II with CKD Anemia in CKD GREGORY/ Secondary HyperPTH. Hypocalcemia. Acute cystitis. P/ Continue current POC and Medications. Next HD Monday. Continue abx. ID to see the patient today. AM labs. Daily weight. No NSAIDs. Case reviewed with Dr. Phan
[2019-10-23] MEDS: HEPARIN 5000 UNIT/ML 1 ML VIAL SQ SCH ×4 (01:00→21:07)
[2019-10-23] MEDS: ONDANSETRON 4 MG/2 ML VIAL IV PRN (05:28)
[2019-10-23] MEDS: BUMETANIDE 1 MG TABLET PO SCH ×2 (06:00→17:56)
[2019-10-23 06:38] LABS: Potassium 5.1 mmol/L (3.5-5.1)
[2019-10-23] MEDS: INSULIN LISPRO 100 UNIT/1 ML SQ SCH ×3 (07:30→16:30)
[2019-10-23 07:44] LABS: Hematocrit 30.6 % (36.0-45.0); MPV 8.5 fL (7.6-11.3)
[2019-10-23] MEDS: HOME MED 1 EA UNK (Linagliptin [Tradjenta] 5 MG) PO SCH (09:00)
[2019-10-23] MEDS: METOPROLOL TAR 50 MG TAB PO SCH ×2 (09:00→20:33)
[2019-10-23] MEDS: CALCITROL 0.25 MCG CAP PO SCH (09:36)
[2019-10-23] MEDS: FLUCONAZOLE 100 MG TAB PO SCH (09:36)
[2019-10-23] MEDS: Meropenem 1,000 MG in NA CHLORIDE 0.9% 100 ML IV SCH (09:37)
[2019-10-23] MEDS: INSULIN -REGULAR HUMAN 50 UNIT/0.5 ML ML SQ SCH ×4 (09:38→20:33)
[2019-10-23] MEDS: TICAGRELOR 90 MG TABLET PO SCH ×2 (09:39→20:33)
[2019-10-23] MEDS: FOLIC ACID 1 MG TABLET PO SCH (09:39)
[2019-10-23 10:07] VITALS: O2SAT 95
[2019-10-23] MEDS: NITROGLYCERIN 0.4 MG/TAB SL PRN (10:51)
--- NOTE | 2019-10-23 14:38 | P.PN ---
Date of Service: 10/23/19 Subjective: Patient is a 79-year-old female who presents to the ED with complaints of worsening suprapubic pain and dysuria despite outpatient antibiotics. Patient reports dysuria for one month and has been on three different antibiotics in the past month with no relief. Patient found to have UTI which I have been consulted for. Patient has ESRD on dialysis since August 2019. Patient examined at bedside. Still with dysuria and suprapubic tenderness but reports feeling better. Objective: Temp Pulse Resp BP Pulse Ox 97.7 F 102 H 17 124/59 L 96 10/23/19 12:10/23/19 12:10/23/19 12:10/23/19 12:10/23/19 12:00 Labs: Sodium 137, potassium 5.1, BUN 49, creatinine 4.61, WBC 8.8, hemoglobin 10.3, hematocrit 30.6 EXAM DESCRIPTION: CT - Stone Protocol - 10/18/2019 7:33 pm CLINICAL HISTORY: Flank pain. ABD PAIN COMPARISON: CT ABDOMEN PELVIS WO CONTRAST dated 01/29/2015 TECHNIQUE: Axial images were obtained without oral or IV contrast. Lack of contrast limits solid organ and vascular assessment. The [id number] spans the entirety of the system partially obscuring uppermost abdomen and lung bases. Coronal reformatted images were obtained and reviewed. All CT scans are performed using dose optimization technique as appropriate and may include automated exposure control or mA/KV adjustment according to patient size. FINDINGS: Trace left pleural effusion is present. Imaged portions of the liver and spleen show no suspicious findings on non-contr ast imaging.Cholecystectomy clips. The pancreas and adrenal glands are normal. No pathologic lymphadenopathy in the abdomen or pelvis. No urinary tract stones or obstructive uropathy. Prominent vascular calcifications are evident. Urinary bladder appears somewhat irregular shape with wall thickening. No bowel obstruction, free air, free fluid or abscess. The appendix is not identified as a discrete structure, however, no secondary findings of appendicitis are identified. Small fat containing right inguinal hernia. Moderate lumbosacral degenerative changes. IMPRESSION: No urinary tract stones or obstructive uropathy. Irregular and thickened urinary bladder noted which may indicate cystitis. ROS: General: Awake, alert, oriented CV: S1,S2 RESP: Good breath sounds ABD: Suprapubic tenderness on palpation, bowel sounds present Extremities: No edema Assessment and plan: UTI, UA positive for yeast, urine culture shows mixed hal, repeat urine culture 10/21 pending Blood cultures negative Fluconazole day 3, Merrem day 04/01 ESRD on HD Diabetes mellitus, monitor glycemic control Will continue to monitor Patient discussed with Dr. Baltazar
--- NOTE | 2019-10-23 16:59 | P.PN ---
Subjective Date of Service: 10/23/19 Chief Complaint: Cystitis-failed outpatient antibiotic Subjective: Improving (Less dysuria and low suprapubic pain, continues with nausea) Had some chest heaviness that this morning, relieved with nitro Review of Systems 10-point ROS is otherwise unremarkable Physical Examination - Vital Signs Temperature: 97.7 F Blood Pressure: 124/59 Pulse: 102 Respirations: 17 Pulse Ox (%): 96 - Physical Exam General: Alert, In no apparent distress HEENT: Atraumatic, PERRLA, EOMI Neck: Supple, JVD not distended Respiratory: Clear to auscultation bilaterally, Normal air movement Cardiovascular: No edema, Regular rate/rhythm, Normal S1 S2 Gastrointestinal: Soft and benign, Non-distended, Tenderness (Very mild suprapubic) Musculoskeletal: No erythema, No tenderness Integumentary: No rashes Neurological: Normal speech, Normal affect Assessment & Plan Physician Review Additional Text: Acute UTI Chronic recurrent cystitis complicated by failed outpatient or antibiotic therapy: End-stage renal disease on dialysis: Type 2 diabetes mellitus: Plan: Chronic recurrent cystitis complicated by failed outpatient or antibiotic therapy: Patient has been on an oral antibiotic for the past month. x3 had several UTIs in the past year. Based on urine culture results from September of 2018 which showed growth of Pseudomonas aeruginosa on IV meropenem 1 g q.8 hr. , Urine culture growing mixed hal. UA with +yeast, treating with diflucan, but also notable for positive leuk esterase and bacteria Unclear if true bacterial infection versus yeast infection. Patient has had mild improvement in symptoms since starting Diflucan yesterday Given the uncertainty, infectious disease was consulted for assistance Will likely need to be discharged on meropenem patient with h/o Cdiff colitis x2 - high risk, will monitor closely End-stage renal disease on dialysis: Nephrology consult - On dialysis Monitor electrolytes and correct accordingly Chest Pain Patient with significant coronary artery disease history Troponin obtained was 0.71. Patient has chronically elevated troponin. Will trend Cardiology consulted, patient was recently cath'd just a few months ago Type 2 diabetes mellitus: Accu-Cheks a.c. HS. Diabetic diet. Continue sliding scale insulin. Continue home medications and titrate as needed Disposition : Continue IV antibiotic, Diflucan, Possible discharge within 24- 48 hrs, cardiology consulted Time Spent Managing Pts Care (In Minutes): 35
[2019-10-23] MEDS: DOCUSATE NA 100 MG CAP PO PRN (20:33)
[2019-10-23] MEDS: ATORVASTATIN 80 MG TAB PO SCH (20:33)
--- NOTE | 2019-10-23 21:16 | P.PN ---
Date of Service: 10/23/19 Vital Signs Temp Pulse Resp BP Pulse Ox 97.7 F 92 H 17 124/59 L 96 10/23/19 16:59 10/23/19 17:56 10/23/19 16:59 10/23/19 17:56 10/23/19 16:59 Medications Acetaminophen (Tylenol -Tablet) 650 mg PO Q4H PRN PRN Reason: TEMP > 100' F Stop: 11/18/19 17:03 Last Admin: 10/21/19 05:45 Dose: 650 mg Documented by: Atorvastatin Calcium (Lipitor) 80 mg PO BEDTIME JL Stop: 11/18/19 21:01 Last Admin: 10/23/19 20:33 Dose: Not Given Documented by: Bumetanide (Bumex) 1 mg PO Q12H JL Stop: 11/18/19 18:01 Last Admin: 10/23/19 17:56 Dose: 1 mg Documented by: Calcitriol (Rocaltrol) 0.5 mcg PO DAILY [facility] Stop: 11/19/19 09:01 Last Admin: 10/23/19 09:36 Dose: Not Given Documented by: Docusate Sodium (Colace Cap) 100 mg PO DAILY PRN PRN Reason: CONSTIPATION Stop: 11/18/19 21:42 Last Admin: 10/23/19 20:33 Dose: 100 mg Documented by: Fluconazole (Diflucan Tab) 100 mg PO DAILY [facility] Stop: 11/20/19 11:31 Last Admin: 10/23/19 09:36 Dose: 100 mg Documented by: Folic Acid (Folic Acid) 1 mg PO DAILY [facility] Stop: 11/19/19 09:01 Last Admin: 10/23/19 09:39 Dose: 1 mg Documented by: Heparin Sodium (Porcine) (Heparin 5,000 Units/Ml) 5,000 unit SQ Q8HR JL Stop: 11/18/19 01:01 Last Admin: 10/23/19 21:07 Dose: Not Given Documented by: Heparin Sodium (Porcine) (Heparin 1,000 Units/Ml) 6,000 unit IV EVERY HD PRN PRN Reason: AFTER EACH Stop: 11/20/19 10:08 Last Admin: 10/23/19 14:43 Dose: 4,000 unit Documented by: Home Med (Linagliptin [Tradjenta]) 5 mg PO DAILY [facility] Stop: 11/19/19 09:01 Last Admin: 10/23/19 09:00 Dose: Not Given Documented by: Meropenem 1,000 mg/ Sodium (Chloride) 100 mls @ 100 mls/hr IV 0900 [facility] Stop: 11/18/19 09:01 Last Admin: 10/23/19 09:37 Dose: 100 mls Documented by: Albumin Human (Albumin 25%) 50 mls @ 100 mls/hr IV EVERY HD [facility] Stop: 11/20/19 11:01 Insulin Human Lispro (Humalog) 4 unit SQ AC [facility] Stop: 11/21/19 16:31 Last Admin: 10/23/19 16:30 Dose: Not Given Documented by: Insulin Human Regular (Novolin -R) 0 unit SQ ACHS [facility]; Protocol Stop: 11/18/19 07:31 Last Admin: 10/23/19 20:33 Dose: 6 unit Documented by: Mannitol (Mannitol 12.5 Gm/50 Ml Vial) 12.5 gm IV EVERY HD PRN PRN Reason: Titrate to SBP (MUST DEFINE) Stop: 11/20/19 10:08 Metoprolol Tartrate (Lopressor) 50 mg PO BID [facility] Stop: 11/19/19 21:01 Last Admin: 10/23/19 20:33 Dose: 50 mg Documented by: Nitroglycerin (Nitrostat) 0.4 mg SL SEECOM PRN PRN Reason: Pain scale 5-7 (Moderate) Stop: 11/18/19 17:02 Last Admin: 10/23/19 10:51 Dose: 1 tab Documented by: Ondansetron HCl (Zofran) 4 mg IV Q6H PRN PRN Reason: NAUSEA / VOMITING Stop: 11/19/19 01:36 Last Admin: 10/23/19 05:28 Dose: 4 mg Documented by: Ranolazine (Ranexa) 500 mg PO Q12H [facility] Stop: 11/20/19 21:01 Last Admin: 10/23/19 20:32 Dose: 500 mg Documented by: Sodium Chloride (Normal Saline Flush) 10 ml IV BID [facility] Stop: 11/18/19 09:01 Last Admin: 10/23/19 20:34 Dose: 10 ml Documented by: Ticagrelor (Brilinta) 90 mg PO BID [facility] Stop: 11/18/19 21:01 Last Admin: 10/23/19 20:33 Dose: 90 mg Documented by: Microbiology Results 10/18/19 18:35 Blood - Blood Aerobic Blood Culture - Final No growth in 5 days. 10/18/19 18:35 Blood - Blood Anaerobic Blood Culture - Final No growth in 5 days. 10/18/19 18:45 Blood - Blood Aerobic Blood Culture - Final No growth in 5 days. 10/18/19 18:45 Blood - Blood Anaerobic Blood Culture - Final No growth in 5 days. 10/18/19 20:00 Clean Catch Urine [place] Count - Final >100,000 CFU/ML. 10/18/19 20:00 Clean Catch Urine - Final MIXED MIKE. Assessment/ Plan: Nephrology CPS stable without CP or SOB. Reports an episode of malaise this morning. No acute events overnight. Vitals, medications, blood work and imaging reviewed in the chart. NAD. MMM. Neck supple. CTA. RRR. Soft Abd. No C/C/E. No rash. AAO. Normal Speech. Obese. A/ ESRD on HD Hyponatremia HTN with CKD/ CHF Diastolic CHF, chronic DM II with CKD Anemia in CKD GREGORY/ Secondary HyperPTH. Hypocalcemia. Acute cystitis. P/ Continue current POC and Medications. HD MWF. HD as ordered for today. Continue abx. Case and abx reviewed with ID. AM labs. Daily weight. No NSAIDs.
[2019-10-24] MEDS: ACETAMINOPHEN 325 MG TABLET PO PRN (00:49)
[2019-10-24] MEDS: BUMETANIDE 1 MG TABLET PO SCH (05:19)
[2019-10-24 05:58] LABS: Potassium 4.7 mmol/L (3.5-5.1)
[2019-10-24 06:11] VITALS: BMI 28.4
[2019-10-24] MEDS: INSULIN -REGULAR HUMAN 50 UNIT/0.5 ML ML SQ SCH ×3 (07:30→16:28)
[2019-10-24] MEDS: INSULIN LISPRO 100 UNIT/1 ML SQ SCH ×3 (07:30→16:28)
[2019-10-24] MEDS: HOME MED 1 EA UNK (Linagliptin [Tradjenta] 5 MG) PO SCH (08:04)
[2019-10-24] MEDS: CALCITROL 0.25 MCG CAP PO SCH (08:04)
[2019-10-24] MEDS: Meropenem 1,000 MG in NA CHLORIDE 0.9% 100 ML IV SCH (08:07)
[2019-10-24] MEDS: FLUCONAZOLE 100 MG TAB PO SCH (08:08)
[2019-10-24] MEDS: METOPROLOL TAR 50 MG TAB PO SCH ×2 (08:08→08:14)
[2019-10-24] MEDS: FOLIC ACID 1 MG TABLET PO SCH (08:08)
[2019-10-24] MEDS: TICAGRELOR 90 MG TABLET PO SCH (08:09)
[2019-10-24] MEDS: HEPARIN 5000 UNIT/ML 1 ML VIAL SQ SCH (08:10)
--- NOTE | 2019-10-24 08:18 | EKG ---
Test Date: 2019-10-23 Test Time: 12:38:46 Nutrient Management Specialist: BEN MEASUREMENT RESULTS: Intervals: Rate: 104 CA: 172 QRSD: 126 QT: 382 QTc: 502 [place]: P: 74 CA: 172 QRS: 27 T: 197 INTERPRETIVE STATEMENTS: Sinus tachycardia Left bundle branch block Abnormal ECG Compared to ECG 10/21/2019 19:11:32 No significant changes Electronically Signed On 10-24-19 08:16:37 CDT by Portillo Arteaga
--- NOTE | 2019-10-24 14:08 | P.PN ---
Date of Service: 10/24/19 Subjective: Patient is a 79-year-old female who presents to the ED with complaints of worsening suprapubic pain and dysuria despite outpatient antibiotics. Patient reports dysuria for one month and has been on three different antibiotics in the past month with no relief. Patient found to have UTI which I have been consulted for. Patient has ESRD on dialysis since August 2019. Patient examined at bedside. Still with dysuria and suprapubic tenderness. Reports episode of sharp pain to lower abdomen last night. Patient has a urology appointment next . Objective: Temp Pulse Resp BP Pulse Ox 97.3 F 75 18 96/52 L 96 10/24/19 12:10/24/19 12:10/24/19 12:10/24/19 12:10/24/19 12:00 Labs: Sodium 136, potassium 4.7, BUN 33, creatinine 3.80, WBC 8.8, hemoglobin 10.3, hematocrit 30.6 EXAM DESCRIPTION: CT - Stone Protocol - 10/18/2019 7:33 pm CLINICAL HISTORY: Flank pain. ABD PAIN COMPARISON: CT ABDOMEN PELVIS WO CONTRAST dated 01/29/2015 TECHNIQUE: Axial images were obtained without oral or IV contrast. Lack of contrast limits solid organ and vascular assessment. The [id number] spans the entirety of the system partially obscuring uppermost abdomen and lung bases. Coronal reformatted images were obtained and reviewed. All CT scans are performed using dose optimization technique as appropriate and may include automated exposure control or mA/KV adjustment according to patient size. FINDINGS: Trace left pleural effusion is present. Imaged portions of the liver and spleen show no suspicious findings on non- contrast imaging.Cholecystectomy clips. The pancreas and adrenal glands are normal. No pathologic lymphadenopathy in the abdomen or pelvis. No urinary tract stones or obstructive uropathy. Prominent vascular calcifications are evident. Urinary bladder appears somewhat irregular shape with wall thickening. No bowel obstruction, free air, free fluid or abscess. The appendix is not identified as a discrete structure, however, no secondary findings of appendicitis are identified. Small fat containing right inguinal hernia. Moderate lumbosacral degenerative changes. IMPRESSION: No urinary tract stones or obstructive uropathy. Irregular and thickened urinary bladder noted which may indicate cystitis. ROS: General: Awake, alert, oriented CV: S1,S2 RESP: Good breath sounds ABD: Suprapubic tenderness on palpation, bowel sounds present Extremities: No edema Assessment and plan: UTI, UA positive for yeast, urine culture shows mixed hal, repeat urine also shows mixed hal Blood cultures negative Fluconazole day 4/5, Merrem day 3 ESRD on HD Upon discharge recommend Fortaz to be administered on dialysis days x7 doses, and Flagyl PO daily for total of 7 days Diabetes mellitus, monitor glycemic control Will continue to monitor Patient discussed with Dr. Baltazar
--- NOTE | 2019-10-24 16:08 | P.DS ---
Admission Date: 10/18/19 Discharge Date: 10/26/19 Disposition: ROUTINE DISCHARGE Discharge Condition: GOOD Reason for Admission: Cystitis-failed outpatient antibiotic Consultations: Cardiology - Dr. Arteaga Nephrology - Dr. King Infectious Disease - Dr. Baltazar Procedures: CT abdomen (10/18/19): IMPRESSION: No urinary tract stones or obstructive uropathy. Irregular and thickened urinary bladder noted which may indicate cystitis Foot MRI (10/22/19): FINDINGS: The previously noted osteomyelitis pattern seen distal phalanx of the great toe has moderately improved. The distal phalanx shows subtle T2/IR increased signal likely reactive marrow changes. There is no cortical breakthrough or T1 marrow placement in the region of interest seen. Mild edema is seen in the tissues surrounding the great toe. No fracture or subluxation. No soft tissue mass or hematoma. Small plantar and posterior calcaneal spurs are seen. IMPRESSION: Moderate improvement in the previously noted distal great toe osteomyelitis. Urine culture (10/18/2019): >100,000 CFU/ML Mixed hal Urine culture (10/22/2019): 10,000 - 100,000 CFU/ML Mixed hal Problem List Acute UTI / cystitis Chronic recurrent cystitis complicated by failed outpatient or antibiotic therapy Chest Pain End-stage renal disease on dialysis Type 2 diabetes mellitus Brief History of Present Illness: 79-year-old female with a past medical history of type 2 diabetes mellitus, end- stage renal disease and chronic cystitis presents to the emergency room sent by her PCP with complaints of worsening suprapubic pain and discomfort. Also dysuria. Patient's daughter states the patient is had a chronic UTI for the past month. She has been on multiple oral antibiotics with no relief. Patient saw her director ehs today who Center to the ER for admission for IV antibiotics. In the emergency room patient is alert and oriented x3. Pleasant and cooperative. In no distress. ED blood work showed a UA with 3+ leukocyte esterase, positive for nitrates, white cell count greater than 50. White cell count is 9.0 but patient has been on oral antibiotics for a month. She was complaining of suprapubic pain and dysuria. Hospital Course: Chronic recurrent cystitis complicated by failed outpatient or antibiotic therapy: The patient had a prior culture from 2018 growing Pseudomonas, so she was started on IV meropenem on admission. Despite two days of meropenem, patient continued to have no change in symptoms. Review the urinalysis revealed that it was positive for yeast. Patient reported history of recurring yeast infections when she is on antibiotics. She was started and completed a 5 day course of p.o. Diflucan. Due to patient's ongoing symptoms, infectious disease was consulted. They agreed with the meropenem and Diflucan. After 2 days of receiving Diflucan, patient did have moderate improvement of her suprapubic pain, and resolution of her dysuria. She was feeling better, and overall consensus was that patient needed to follow up with urology as an outpatient for further evaluation. Patient reported she had an appointment with them next week. After much discussion with the consultants, patient was discharged with IV Fortaz (7 doses, dosed at time of dialysis), and 7 days of p.o. Flagyl. Patient also needed 1 more day of Diflucan to complete 5 days. Of note patient does have a h/o Cdiff colitis x2 - high risk, will need to be monitored closely. End-stage renal disease on dialysis Nephrology was consulted, and patient continued on her dialysis, M-W-F Chest Pain, h/o CAD and stents Towards the end of her hospitalization, patient reported having some chest pain/heaviness. An EKG was performed and without any acute ischemic findings/changes. Troponin was obtained and was 0.71. Cardiology was consulted, who felt there is no intervention needed at this time. Patient has a long history of chronically elevated troponin. Her chest pain resolved without any intervention Type 2 diabetes mellitus: This was fairly stable, she is continued on her home medication and corrected with a sliding scale Vital Signs/Physical Exam: Temp Pulse Resp BP Pulse Ox 97.3 F 75 18 96/52 L 96 10/24/19 12:00 10/24/19 12:00 10/24/19 12:00 10/24/19 12:10/24/19 12:00 General: Alert, In no apparent distress HEENT: PERRLA, Mucous membr. moist/pink, EOMI Neck: Supple, No LAD Respiratory: Clear to auscultation bilaterally, Normal air movement Cardiovascular: Regular rate/rhythm, Normal S1 S2 Gastrointestinal: Soft and benign, Non-distended, No rebound, No guarding, Tenderness (mild suprapubic) Musculoskeletal: No erythema, No tenderness Integumentary: No rashes Neurological: Normal speech, Normal affect Laboratory Data at Discharge: WBC 8.8 K/uL (4.3-10.9) D 10/23/19 07:24 Hgb 10.3 g/dL (12.0-15.0) L 10/23/19 07:24 Hct 30.6 % (36.0-45.0) L 10/23/19 07:24 Plt Count 226 K/uL (152-406) 10/23/19 07:24 Sodium 136 mmol/L (136-145) 10/24/19 05:26 Potassium 4.7 mmol/L (3.5-5.1) 10/24/19 05:26 BUN 33 mg/dL (7-18) H 10/24/19 05:26 Creatinine 3.80 mg/dL (0.55-1.3) H 10/24/19 05:26 Glucose 173 mg/dL (74-106) H 10/24/19 05:26 Magnesium 2.3 mg/dL (1.8-2.4) 10/22/19 03:46 Troponin I 0.74 ng/mL (0.0-0.045) H* 10/23/19 18:14 Home Medications: Atorvastatin Calcium [Lipitor] 80 mg PO BEDTIME 08/22/18 Bumetanide [Bumex*] 1 mg PO Q12H 08/22/18 Folic Acid 1 mg PO DAILY 08/22/18 Nitroglycerin [Nitrostat*] 0.4 mg SL SEECOM PRN 08/22/18 Linagliptin [Tradjenta] 5 mg PO DAILY 09/10/18 calcitrioL [Calcitriol] 1 cap PO DAILY 11/20/18 Metoprolol Tartrate [Lopressor*] 100 mg PO BID 05/27/19 Ticagrelor [Brilinta*] 1 tab PO BID 08/21/19 Ranolazine [Ranexa] 500 mg PO BID 09/21/19 Insulin Lispro [Humalog Kwikpen U-100] 4 unit SQ TID 10/19/19 Ceftazidime [Fortaz] 1 gm IM M,W,F 14 Days #7 vial 10/24/19 Fluconazole [Diflucan] 100 mg PO DAILY #1 tablet 09/03/20 metroNIDAZOLE [Flagyl] 250 mg PO Q8H 7 Days #21 tablet 10/24/19 New Medications: Fluconazole [Diflucan] 100 mg PO DAILY #1 tablet metroNIDAZOLE [Flagyl] 250 mg PO Q8H 7 Days #21 tablet Ceftazidime [Fortaz] 1 gm IM M,W,F 14 Days #7 vial Patient Discharge Instructions: follow up with PCP within 1 week. Follow up with urology as scheduled. Diet: Renal Activity: Ad karolyn Time spent managing pt's care (in minutes): 35
[2019-10-24 16:48] VITALS: BP 95/57; TEMP 97.4
--- NOTE | 2019-10-24 21:41 | P.PN ---
Date of Service: 10/24/19 Vital Signs Temp Pulse Resp BP Pulse Ox 97.4 F 76 18 95/57 L 99 10/24/19 16:00 10/24/19 16:00 10/24/19 16:00 10/24/19 16:00 10/24/19 16:00 Microbiology Results 10/18/19 18:35 Blood - Blood Aerobic Blood Culture - Final No growth in 5 days. 10/18/19 18:35 Blood - Blood Anaerobic Blood Culture - Final No growth in 5 days. 10/18/19 18:45 Blood - Blood Aerobic Blood Culture - Final No growth in 5 days. 10/18/19 18:45 Blood - Blood Anaerobic Blood Culture - Final No growth in 5 days. 10/18/19 20:00 Clean Catch Urine [place] Count - Final >100,000 CFU/ML. 10/18/19 20:00 Clean Catch Urine - Final MIXED MIKE. Assessment/ Plan: Nephrology CPS stable without CP or SOB. Feeling better today. No acute events overnight. Vitals, medications, blood work and imaging reviewed in the chart. NAD. MMM. Neck supple. CTA. RRR. Soft Abd. No C/C/E. No rash. AAO. Normal Speech. Obese. A/ ESRD on HD Hyponatremia HTN with CKD/ CHF Diastolic CHF, chronic DM II with CKD Anemia in CKD GREGORY/ Secondary HyperPTH. Hypocalcemia. Acute cystitis. P/ Continue current POC and Medications. HD MWF. Next HD Monday. Continue abx. Outpt abx arranged at dialysis. AM labs. Daily weight. No NSAIDs.
--- NOTE | 2019-10-27 05:48 | CON ---
Date of Consultation: 10/23/2019 Reason For Consultation: Chest pain. History Of Present Illness: Ms. Gonzalez is a 79-year-old woman, very well known to me from previous office visits and admissions. She has had a history of coronary artery disease. She is status post multiple stents in her left main ostium, ostial LAD, ostial circumflex as well as ostial RCA. She w as not a candidate for coronary artery bypass surgery because of sensitivity to heparin and refusal f or blood transfusion secondary to caodaism beliefs. 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 At one po int, we send her for surgery. Because of her sensitivity to heparin, she was turned down for surgery , underwent stent multiple time in her left main, LAD, circumflex, and RCA. Her last catheterization by me approximately a month ago showed patent stent in the LAD, left main, and circumflex, but she h ad a completely occluded RCA with collaterals from the left system. She was admitted for cystitis an d lastly they have been treating her for fungal cystitis because she is unresponsive to antibiotics. While she was in the hospital, she developed some chest pain, relieved with nitroglycerin. Her trop onin was 0.71, but her troponin is chronically elevated. She denied PND, orthopnea, pedal edema, pal pitation, or syncope. Past Medical History: Include hypertension, diabetes, dyslipidemia, coronary artery disease, end-sta ge renal disease, on hemodialysis. Allergies: NONE. Review of Systems: Negative. Social History: Negative. Family History: Negative. Medications: At home includes metoprolol, aspirin, and Lipitor. Physical Examination: Vital Signs: Stable. She was afebrile. HEENT: Negative. Neck: Supple without any bruit, lymphadenopathy, JVD, or thyromegaly. Chest: Clear to auscultation and percussion. Cardiac: Regular rhythm and rate. No murmurs, gallops, or rubs. Abdomen: Benign. Extremities: No clubbing, cyanosis, or edema. Diagnostic Data: Except for the renal failure with elevated creatinine, her EKG was unremarkable. H er troponin was 0.71. Impression And Plan: 1.Chronic stable angina. We can certainly increase her metoprolol as needed. She can take nitrogly cerin as needed, but at this point she is stable. No need for repeat catheterization. Her troponin is chronically elevated. Recent catheterization showed a completely occluded RCA from the ostium wit h collaterals from the left system. No need for further cardiac workup and no need for another vicky terization. 2.Her other problems include dialysis, cystitis, hypertension, and dyslipidemia are well controlled. I will follow Ms. Gonzalez on an as-needed basis. ALEJANDRO/LIO Voice ID: [id number] Report ID: [id number]
== END 2019-10-24 16:58 | disposition home or self-care (01) | DRG 689 ==
LOC: ER 17:42 → ERHOLD 20:56 → 2ND 23:47
PROVIDERS: ADMIT Emergency Medicine; ATTEND Hospitalist
DX: N30.00 Acute cystitis without hematuria (principal); N18.6 End stage renal disease; E87.1 Hypo-osmolality and hyponatremia; I13.2 Hypertensive heart and chronic kidney disease with heart failure and with stage 5 chronic kidney disease, or end stage renal disease; I50.32 Chronic diastolic (congestive) heart failure; E11.51 Type 2 diabetes mellitus with diabetic peripheral angiopathy without gangrene; E11.22 Type 2 diabetes mellitus with diabetic chronic kidney disease; E21.1 Secondary hyperparathyroidism, not elsewhere classified; E78.5 Hyperlipidemia, unspecified; D63.1 Anemia in chronic kidney disease; I25.118 Atherosclerotic heart disease of native coronary artery with other forms of angina pectoris; R07.9 Chest pain, unspecified; Z88.1 Allergy status to other antibiotic agents; Z88.5 Allergy status to narcotic agent; Z88.8 Allergy status to other drugs, medicaments and biological substances; Z79.4 Long term (current) use of insulin; Z79.82 Long term (current) use of aspirin; Z79.899 Other long term (current) drug therapy; Z86.718 Personal history of other venous thrombosis and embolism; Z95.5 Presence of coronary angioplasty implant and graft; Z90.710 Acquired absence of both cervix and uterus; Z90.49 Acquired absence of other specified parts of digestive tract; Z99.2 Dependence on renal dialysis
CPT/HCPCS: 36415; 74176; 76377; 80048; 81003; 81015; 82947; 83605; 83735; 84145; 84484; 85025; 85027; 87040; 87086; 87088; 90935; 93005; 96365; 96375; 99285; J0696; J1644; J1815; J2185; J2405; P9047